=== PATIENT | male | born 1945 | race Caucasian/White ===

== ENCOUNTER 2023-07-16 11:58 | Observation (INO) | payer MEDICARE, SELFPAY ==
[2023-07-16] VITALS (90 sets, daily range): BP systolic 97–155; BP diastolic 48–94; PULSE 85–115; RESP 14–34; TEMP 36.4–36.8; O2SAT 90–100; BMI 19.4; BMI 19.9
--- NOTE | 2023-07-16 12:17 | US_ITS ---
The [address] [address] Patient Name: MAX SANCHEZ MRN: [id number] date: 1945 Sex: M Assigned Patient Location: ER Current Patient Location: ER Accession/Order Number: [id number] Exam Date: 07/16/2023 12:25 Report Date: 07/16/2023 13:13 At the request of: MO FREDERICK Procedure: US venous doppler LE LT US venous doppler LE LT CLINICAL HISTORY: DVT. COMPARISON: None Available. TECHNIQUE: Ultrasound doppler evaluation of the left lower extremity using compression, color doppler and augmentation maneuvers during spectral doppler analysis. FINDINGS: Common femoral vein: Patent. Deep femoral vein: Patent Femoral vein: Patent. Popliteal vein: Patent. Tibioperoneal veins: Patent. Greater saphenous vein: Patent. US/US venous doppler LE LT IMPRESSION: No left lower extremity deep venous thrombosis. Electronically authenticated by: HAYLEE BAUTISTA Date: 07/16/2023 13:13
--- NOTE | 2023-07-16 12:17 | CT_ITS ---
[address] [address] Patient Name: MAX SANCHEZ MRN: [id number] date: 1945 Sex: M Assigned Patient Location: ER Current Patient Location: ER Accession/Order Number: [id number] Exam Date: 07/16/2023 14:05 Report Date: 07/16/2023 15:16 At the request of: MO FREDERICK Procedure: CT abdomen pelvis w con CT abdomen pelvis w con CLINICAL HISTORY: Nausea and vomiting. Diarrhea. COMPARISON: 01/29/2023. TECHNIQUE: Axial CT from lung bases through symphysis pubis following the injection of 99 mL of Omnipaque 300 iodinated contrast material. 30 mL Gastrografin utilized for oral contrast. Coronal and sagittal reconstructions generated. Dose reduction techniques were achieved by using automated exposure control and/or adjustment of mA and/or kV according to patient size and/or use of iterative reconstruction technique. FINDINGS: CT ABDOMEN FINDINGS: Median sternotomy and coronary artery calcifications. Lung bases clear. Liver and unremarkable. Splenomegaly of 15 cm. Normal-sized adrenal glands. Cholecystectomy with normal common duct size. Pancreas unremarkable. Normal bilateral renal enhancement. A few nonobstructing calculi with no obstructing stones or hydronephrosis. 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 Limited in-stent evaluation of the visceral branches but grossly patent and patent distally. Occluded right iliofemoral stents with femorofemoral bypass and also occlusion at the bilateral upper SFAs. Stomach and much of the small and large bowel with diffuse wall thickening and congestion. No drainable ascites, pneumatosis or free air. Normal portal venous enhancement with no portal venous gas. No obstruction. CT PELVIS FINDINGS: Normal-sized prostate. Urinary bladder unremarkable. Lumbar spondylosis without acute bony process. Old chronic deformity left iliac bone. 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 CT/CT abdomen pelvis w con IMPRESSION: Diffuse gastroenteritis and enterocolitis changes throughout much of the GI tract. Given the patent visceral branch vessels and the diffuse long segment involvement is probably represents infectious or inflammatory bowel disease as opposed to vascular but correlate with lactic acid. There is no pneumatosis or free air. Chronic changes: Splenomegaly. No drainable ascites. Extensive vascular disease as detailed. Nonobstructing renal calculi. Electronically authenticated by: HAYLEE BAUTISTA Date: 07/16/2023 15:16
[2023-07-16 12:27] LABS: Immature Granulocytes Abs Auto 0.01 10^3/uL (0.00-0.03); Immature Granulocytes Pct Auto 0.4 % (0.0-0.5); Lymphocytes Absolute Auto 0.2 10^3/uL (1.2-3.8); Lymphocytes Percent Auto 8.5 % (20.5-60.0); Mean Corpuscular HGB Conc 27.2 g/dL (29.9-35.2); Mean Corpuscular Hemoglobin 21.1 pg (25.9-34.0); Mean Corpuscular Volume 77.5 fL (80.0-94.0); Monocytes Absolute Auto 0.2 10^3/uL (0.3-0.8); Monocytes Percent Auto 7.8 % (1.7-12.0); Neutrophils Absolute Auto 2.3 10^3/uL (1.4-6.5); Neutrophils Percent Auto 83.3 % (43.0-75.0); Platelet Count 76 10^3/uL (150-450); Red Blood Count 2.18 10^6/uL (4.70-6.10); Red Cell Distribution Width 17.7 % (11.0-15.0); White Blood Count 2.7 10^3/uL (4.0-11.0)
[2023-07-16] MEDS: ONDANSETRON PF 4 MG/2 ML VIAL IV ×3 (12:28→19:15)
[2023-07-16] MEDS: 0.9 % SODIUM CHLORIDE 1,000 ML 999 ML IV (12:28)
[2023-07-16 12:45] LABS: Alanine Aminotransferase 48 U/L (16-63); Albumin Globulin Ratio 0.8; Albumin Level 3.1 g/dL (3.4-5.0); Alkaline Phosphatase 70 U/L (46-116); Anion Gap 9.4; Aspartate Amino Transferase 24 U/L (15-37); BUN Creatinine Ratio 18.9; Bilirubin Total 0.4 mg/dL (0.2-1.0); Calcium 8.1 mg/dL (8.5-10.1); Chloride 102 mmol/L (98-107); Estimated GFR (African America >60 (>=60); Estimated GFR (Non-African Ame >60 (>=60); Glucose 139 mg/dL (74-106); Potassium 3.4 mmol/L (3.5-5.1); Sodium 135 mmol/L (136-145); Total Protein 7.1 g/dL (6.4-8.2)
[2023-07-16 12:50] LABS: Hematocrit 16.9 % (42.0-54.0); Hemoglobin 4.6 g/dL (14.0-18.0)
[2023-07-16] MEDS: METHYLPREDNISOLONE SOD SUCC PF 125 MG/2 ML VIAL IVP (12:54)
[2023-07-16] MEDS: DIPHENHYDRAMINE HCL 50 MG/ML (1ML) VIAL IV (12:54)
[2023-07-16] MEDS: METOCLOPRAMIDE HCL 10 MG/2 ML VIAL IVP ×2 (13:01→21:52)
--- NOTE | 2023-07-16 14:28 | ED.GENADUL1 ---
HPI - General Adult General Chief complaint: Nausea/Vomiting/Diarrhea Stated complaint: NAUSEA AND CONCERNED WITH BLOOD CLOT Time Seen by Provider: 07/16/23 12:06 Source: patient and family Mode of arrival: Wheelchair Limitations: physical limitation Limitations comment: missing R leg History of Present Illness HPI narrative: nausea and vomiting began last night. This morning he developed diarrhea. He has some lower abdominal cramping that began this morning. On questioning the patient admitted to having some dark stool today. No fever or chills. No flank pain or back pain. No skin rash. The patient has extensive vascular history with multiple surgeries in at [facility]. He had bilateral fem-pop bypass and then had to have grafting when they occluded. Related Data Home Medications Medication Instructions Recorded Confirmed apixaban 5 mg tablet (Eliquis) 5 mg PO Q12H 07/16/23 07/16/23 digoxin 125 mcg (0.125 mg) tablet 125 mcg PO DAILY 07/16/23 07/16/23 (Digox) ezetimibe 10 mg tablet 5 mg PO DAILY 07/16/23 07/16/23 metformin 500 mg tablet 500 mg PO BID 07/16/23 07/16/23 montelukast 10 mg tablet 10 mg PO DAILY 07/16/23 07/16/23 (Singulair) rosuvastatin 40 mg tablet 40 mg PO DAILY 07/16/23 07/16/23 vericiguat 10 mg tablet (Verquvo) 10 mg PO DAILY 07/16/23 07/16/23 Allergies Allergy/AdvReac Type Severity Reaction Status Date / Time iodine AdvReac Severe Vomiting Verified 07/16/23 12:11 promethazine [From Phenergan] AdvReac Severe Hallucinati Verified 07/16/23 12:11 ng shellfish derived AdvReac Severe Vomiting Verified 07/16/23 12:11 codeine AdvReac Intermediate Vomiting Verified 07/16/23 12:11 [facility] Medical History (Updated 07/16/23 @ 15:40 by Mo Frederick) 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 afebrile General: Well-appearing and in no apparent distress. Skin: Warm, dry, no pallor noted. No rash. Head: Normocephalic, atraumatic. Neck: Supple, non-tender. no meningismus Eye: Pupils are equal, round and EOMI. No scleral icterus. Ears, Nose, Mouth, and Throat: Oral mucosa is dry Cardiovascular: Regular Rate and Rhythm without murmur, gallop or rub. Respiratory: No accessory muscle use or respiratory distress. Lungs are clear to auscultation, no wheezing, rales or rhonchi Back: No CVA tenderness Musculoskeletal: normal ROM, no calf or popliteal tenderness, no lower extremity edema/swelling GI: Abdomen is soft, non-distended. Normal bowel sounds. No masses appreciated. Mid abdominal tenderness to palpation. No rebound, guarding, or rigidity noted. Neurological: A&O x4. No cranial nerve dysfunction observed. No truncal ataxia. Moves all extremities. Sensation intact. Psychiatric: Cooperative and interactive. Normal mood and affect. Constitutional Vital Signs, click to edit/add: Last Vital Signs Temp 98.0 F 07/16/23 14:56 Pulse 110 H 07/16/23 14:56 Resp 18 07/16/23 14:56 BP 140/64 07/16/23 14:56 Pulse Ox 98 07/16/23 14:56 O2 Del Method Room Air 07/16/23 12:06 Course Vital Signs Vital signs: Vital Signs Temperature 97.8 F 07/16/23 12:06 Pulse Rate 107 H 07/16/23 12:06 Respiratory Rate 18 07/16/23 12:06 Blood Pressure 155/86 H 07/16/23 12:06 Pulse Oximetry 100 07/16/23 12:06 Oxygen Delivery Method Room Air 07/16/23 12:06 Temperature 98.0 F 07/16/23 14:56 Pulse Rate 110 H 07/16/23 14:56 Respiratory Rate 18 07/16/23 14:56 Blood Pressure 140/64 07/16/23 14:56 Pulse Oximetry 98 07/16/23 14:56 Oxygen Delivery Method Room Air 07/16/23 12:06 Medical Decision Making MDM Narrative Medical decision making narrative: peripheral IV established and blood drawn and sent for testing. He was given normal saline IV fluid and IV Zofran. He continued to have nausea but is ALLERGIC to Phenergan so he was given additional IV Zofran and IV Reglan. Ultrasound left lower extremity does not reveal acute deep venous thrombosis. White blood cell count is decreased at 2.7 but his lactate is normal. He has marked anemia with a hemoglobin of 4.6.. MCV, MCH and MCHC are all low suggesting iron deficiency but the did tell me that the patient has been passing black tarry stool for the last several days so obviously gastrointestinal bleed is also concerning. CMP is essentially unremarkable with normal renal function and only minimally decreased sodium and potassium. CT scanning of the abdomen and pelvis ordered to be obtained of both oral and IV contrast. Both verbal and written consent was obtained for the patient receive blood transfusion. Two units of packed red blood cells ordered to be transfused. CT with oral and IVC revealed gastroenteritis without obstruction, mas, sign of GI bleed or sign of vascular extravasation of IV contrast. I informed the patient and family of results and they are agreeable to admission for continued transfusin of blood, treatment of nausea/vomiting and monitoring of Hb. Dr Williamson and I talked about the patient's case including his vascular history, lab results today and CT result and he agreed to admit the patient to the ICU, observation basis. He asked me to discuss the case with the [facility], Dr Aguilar. Call placed. Lab Data Lab results reviewed: Yes I reviewed the patient's lab results Labs: Lab Results 07/16/23 07/16/23 Range/Units 12:13 13:06 WBC 2.7 L (4.0-11.0) 10^3/uL RBC 2.18 L (4.70-6.10) 10^6/uL Hgb 4.6 L* (14.0-18.0) g/dL Hct 16.9 L* (42.0-54.0) % MCV 77.5 L (80.0-94.0) fL MCH 21.1 L (25.9-34.0) pg MCHC 27.2 L (29.9-35.2) g/dL RDW 17.7 H (11.0-15.0) % Plt Count 76 L (150-450) 10^3/uL Neut % (Auto) 83.3 H (43.0-75.0) % Lymph % (Auto) 8.5 L (20.5-60.0) % [place] % (Auto) 7.8 (1.7-12.0) % Eos % (Auto) 0.0 L (0.9-7.0) % Baso % (Auto) 0.0 L (0.2-2.0) % Neut # (Auto) 2.3 (1.4-6.5) 10^3/uL Lymph # (Auto) 0.2 L (1.2-3.8) 10^3/uL [place] # (Auto) 0.2 L (0.3-0.8) 10^3/uL Eos # (Auto) 0.0 (0.0-0.7) 10^3/uL Baso # (Auto) 0.0 (0.0-0.1) 10^3/uL Abs Immat Gran (auto) 0.01 (0.00-0.03) 10^3/uL Imm/Tot Granulo (auto) 0.4 (0.0-0.5) % Sodium 135 L (136-145) mmol/L Potassium 3.4 L (3.5-5.1) mmol/L Chloride 102 (98-107) mmol/L Carbon Dioxide 27.0 (21.0-32.0) mmol/L Anion Gap 9.4 BUN 14.0 (7.0-18.0) mg/dL Creatinine 0.74 (0.70-1.30) mg/dL Est GFR ( Amer) >60 (>=60) Est GFR (Non-Af Amer) >60 (>=60) BUN/Creatinine Ratio 18.9 Glucose 139 H (74-106) mg/dL Lactate 2.0 (0.4-2.0) mmol/L Calcium 8.1 L (8.5-10.1) mg/dL Total Bilirubin 0.4 (0.2-1.0) mg/dL AST 24 (15-37) U/L ALT 48 (16-63) U/L Alkaline Phosphatase 70 (46-116) U/L Total Protein 7.1 (6.4-8.2) g/dL Albumin 3.1 L (3.4-5.0) g/dL Globulin 4.0 g/dL Albumin/Globulin Ratio 0.8 Lipase 20.0 (16.0-77.0) U/L Blood Type O Positive Antibody Screen Negative Crossmatch See Detail Imaging Data US left LE: Radiologist's impression: Patient Name: MAX SANCHEZ MRN: [id number] date: 1945 Sex: M Assigned Patient Location: ER Current Patient Location: ER Accession/Order Number: [id number] Exam Date: 07/16/2023 12:25 Report Date: 07/16/2023 13:13 At the request of: MO FREDERICK Procedure: US venous doppler LE LT US venous doppler LE LT CLINICAL HISTORY: DVT. COMPARISON: None Available. TECHNIQUE: Ultrasound doppler evaluation of the left lower extremity using compression, color doppler and augmentation maneuvers during spectral doppler analysis. FINDINGS: Common femoral vein: Patent. Deep femoral vein: Patent Femoral vein: Patent. Popliteal vein: Patent. Tibioperoneal veins: Patent. Greater saphenous vein: Patent. IMPRESSION: No left lower extremity deep venous thrombosis. Electronically authenticated by: HAYLEE BAUTISTA Date: 07/16/2023 13:13 CT scan - abdomen: Radiologist's impression: Patient Name: MAX SANCHEZ MRN: [id number] date: 1945 Sex: M Assigned Patient Location: ER Current Patient Location: ER Accession/Order Number: [id number] Exam Date: 07/16/2023 14:05 Report Date: 07/16/2023 15:16 At the request of: MO FREDERICK Procedure: CT abdomen pelvis w con CT abdomen pelvis w con CLINICAL HISTORY: Nausea and vomiting. Diarrhea. COMPARISON: 01/29/2023. TECHNIQUE: Axial CT from lung bases through symphysis pubis following the injection of 99 mL of Omnipaque 300 iodinated contrast material. 30 mL Gastrografin utilized for oral contrast. Coronal and sagittal reconstructions generated. Dose reduction techniques were achieved by using automated exposure control and/or adjustment of mA and/or kV according to patient size and/or use of iterative reconstruction technique. FINDINGS: CT ABDOMEN FINDINGS: Median sternotomy and coronary artery calcifications. Lung bases clear. Liver and unremarkable. Splenomegaly of 15 cm. Normal-sized adrenal glands. Cholecystectomy with normal common duct size. Pancreas unremarkable. Normal bilateral renal enhancement. A few nonobstructing calculi with no obstructing stones or hydronephrosis. 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 Limited in-stent evaluation of the visceral branches but grossly patent and patent distally. Occluded right iliofemoral stents with femorofemoral bypass and also occlusion at the bilateral upper SFAs. Stomach and much of the small and large bowel with diffuse wall thickening and congestion. No drainable ascites, pneumatosis or free air. Normal portal venous enhancement with no portal venous gas. No obstruction. CT PELVIS FINDINGS: Normal-sized prostate. Urinary bladder unremarkable. Lumbar spondylosis without acute bony process. Old chronic deformity left iliac bone. 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 IMPRESSION: Diffuse gastroenteritis and enterocolitis changes throughout much of the GI tract. Given the patent visceral branch vessels and the diffuse long segment involvement is probably represents infectious or inflammatory bowel disease as opposed to vascular but correlate with lactic acid. There is no pneumatosis or free air. Chronic changes: Splenomegaly. No drainable ascites. Extensive vascular disease as detailed. Nonobstructing renal calculi. Electronically authenticated by: HAYLEE BAUTISTA Date: 07/16/2023 15:16 Discharge Plan Discharge Chief Complaint: Nausea/Vomiting/Diarrhea Clinical Impression: Anemia requiring transfusions, Gastroenteritis Patient Disposition: Admitted as Observation Time of Disposition Decision: 15:29 Additional Instructions: dr williamson, obs, ICU
[2023-07-16 15:52] LABS: Lactate/Lactic Acid 2.3 mmol/L (0.4-2.0)
[2023-07-16 17:42] LABS: Glucometer 164 mg/dL (74-106)
[2023-07-16 20:20] LABS: Hematocrit 24.3 % (42.0-54.0); Hemoglobin 7.3 g/dL (14.0-18.0); Mean Corpuscular Volume 79.9 fL (80.0-94.0); Platelet Count 76 10^3/uL (150-450); Red Blood Count 3.04 10^6/uL (4.70-6.10); Red Cell Distribution Width 18.6 % (11.0-15.0); White Blood Count 2.8 10^3/uL (4.0-11.0)
[2023-07-16 20:36] LABS: Lactate/Lactic Acid 1.6 mmol/L (0.4-2.0)
--- NOTE | 2023-07-16 20:47 | PC.NURSE ---
Patient's repeat Hgb 7.3 at 2009. RN ordered 2 additional units for transfusion per Dr. Bernardo's Miscellaneous standing order. Will cont to monitor and plan to administer when blood available from blood blank.
[2023-07-16] MEDS: LORAZEPAM 2 MG/ML 1 ML VIAL 0.5 MG IV (22:10)
--- NOTE | 2023-07-16 22:16 | PC.NURSE ---
Pt medicated with 0.5 mg Ativan per MD order as well as Thorazine IVPB. Pt tolerated well and is resting with eyes closed at this time. VSS. Will cont to monitor.
--- NOTE | 2023-07-16 23:50 | PC.NURSE ---
Unable to document blood transfusion vitals under TAR due to computer error. Error message reading that unit is locked by blood bank. 3rd unit verified by RN x2. This RN and Amanda Velez RN as co-signer. It is unclear at what point in the scanning and documentation process this error occurred. Pt continues to tolerate 3rd unit with no s/s of reaction. VSS. Will cont to monitor. Please see worklist for vital sign documentation.
[2023-07-17] VITALS (58 sets, daily range): BP systolic 118–141; BP diastolic 55–82; PULSE 52–107; RESP 16–25; TEMP 36.6–36.8; O2SAT 97–98
--- NOTE | 2023-07-17 02:19 | PC.NURSE ---
4th unit of PRBC's initiated at 0202 through the #20G IV catheter in patient's left wrist. Blood was double checked and verified by RN x2: This RN and Amanda Velez RN. No s/s of transfusion reaction noted. IV site remains patent, clean, dry, and intact. VSS. Pt remains Afebrile. PRBC's rate increased from initial rate of 100 ml/hr to 150 ml/hr. Pt tolerating well. Will cont to monitor.
--- NOTE | 2023-07-17 05:12 | PC.NURSE ---
4th unit of PRBC's transfused at 0445. Pt tolerated well. Pt up to BSC and back to bed. Pt states he's feeling better this AM. VSS. Lab will be up at 0530 to draw morning labs. Will cont to monitor.
[2023-07-17 06:01] LABS: Basophils Percent Auto 0.4 % (0.2-2.0); Hematocrit 26.8 % (42.0-54.0); Hemoglobin 8.2 g/dL (14.0-18.0); Immature Granulocytes Abs Auto 0.01 10^3/uL (0.00-0.03); Immature Granulocytes Pct Auto 0.4 % (0.0-0.5); Lymphocytes Absolute Auto 0.2 10^3/uL (1.2-3.8); Lymphocytes Percent Auto 10.3 % (20.5-60.0); Mean Corpuscular HGB Conc 30.6 g/dL (29.9-35.2); Mean Corpuscular Hemoglobin 25.1 pg (25.9-34.0); Monocytes Absolute Auto 0.3 10^3/uL (0.3-0.8); Monocytes Percent Auto 12.9 % (1.7-12.0); Neutrophils Absolute Auto 1.8 10^3/uL (1.4-6.5); Platelet Count 50 10^3/uL (150-450); Red Blood Count 3.27 10^6/uL (4.70-6.10); Red Cell Distribution Width 17.5 % (11.0-15.0); White Blood Count 2.3 10^3/uL (4.0-11.0)
[2023-07-17 06:07] LABS: Anion Gap 7.9; BUN Creatinine Ratio 18.8; Calcium 7.7 mg/dL (8.5-10.1); Carbon Dioxide 25.5 mmol/L (21.0-32.0); Chloride 107 mmol/L (98-107); Estimated GFR (African America >60 (>=60); Estimated GFR (Non-African Ame >60 (>=60); Glucose 97 mg/dL (74-106); Potassium 3.4 mmol/L (3.5-5.1); Sodium 137 mmol/L (136-145)
--- NOTE | 2023-07-17 08:12 | PM.GSCN ---
History of Present Illness Consult details Consult date: 07/17/23 Reason for consult: other Requesting physician: Jacob Bernardo Narrative: Tu Joy is a 77-year-old male who presented to the Emergency Department with abdominal pain nausea and vomiting and passage of dark tarry stools. He has a known history of peripheral vascular disease which is quite extensive. He takes eloquis daily due to atrial fibrillation and stroke. He also takes a baby aspirin daily which he has been on for many years. He denies any history of ulcer disease. He states that he has chronic anemia. Denies any history of chronic renal failure. He takes iron supplementation daily. He was found have a hemoglobin of 4.6 g yesterday in the Emergency Department and denies any hematemesis or hematochezia. His last colonoscopy was in [address] Jones and that was noted to be normal according to the patient. His last EGD was over ten years ago at the time of his gallbladder removal. Most recently he had a right [id number] amputation due to peripheral vascular disease after he had a femoropopliteal bypass as well as he looks like he has an axillary femoral bypass on the left. He states he's had five surgeries since the of the year due to his peripheral vascular disease. He is a smoker. He denies any abdominal pain this morning. He received three units of packed red blood cells for transfusion.his hemoglobin this morning was 8.2 g. Vital signs are stable. Review of Systems ROS Status of ROS 10 or more systems reviewed and unremarkable except as noted in history and below [facility] Medical History (Updated 07/17/23 @ 08:18 by Chong Aguilar MD) Amputation above knee ?S78.119A - Complete traumatic amputation at level between unspecified hip and knee, initial encounter (ICD-10) Clot ?I82.90 - Acute embolism and thrombosis of unspecified vein (ICD-10) Complaint of melena ?K92.1 - Melena (ICD-10) Diabetes ?E11.9 - Type 2 diabetes mellitus without complications (ICD-10) Femoral-popliteal bypass graft occlusion, left ?T82.898A - Other specified complication of vascular prosthetic devices, implants and grafts, initial encounter (ICD-10) Femoral-popliteal bypass graft occlusion, right ?T82.898A - Other specified complication of vascular prosthetic devices, implants and grafts, initial encounter (ICD-10) FH: CABG (coronary artery bypass surgery) ?Z82.49 - Family history of ischemic heart disease and other diseases of the circulatory system (ICD-10) Family History Father Family history of diabetes mellitus Social History Within the past year, how often did you have a drink containing alcohol: never Score interpretation: A score less than 4 is consistent with normal alcohol consumption. 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 Known occupational exposures/hazards: No Highest level of school completed/degree received: high school graduate Meds Home Medications and Allergies Home Medications Medication Instructions Recorded Confirmed Type apixaban 5 mg tablet (Eliquis) 5 mg PO Q12H 07/16/23 07/16/23 History digoxin 125 mcg (0.125 mg) tablet 125 mcg PO DAILY 07/16/23 07/16/23 History (Digox) ezetimibe 10 mg tablet 5 mg PO DAILY 07/16/23 07/16/23 History metformin 500 mg tablet 500 mg PO BID 07/16/23 07/16/23 History montelukast 10 mg tablet 10 mg PO DAILY 07/16/23 07/16/23 History (Singulair) rosuvastatin 40 mg tablet 40 mg PO DAILY 07/16/23 07/16/23 History vericiguat 10 mg tablet (Verquvo) 10 mg PO DAILY 07/16/23 07/16/23 History Allergies Allergy/AdvReac Type Severity Reaction Status Date / Time iodine AdvReac Severe Vomiting Verified 07/16/23 12:11 promethazine [From Phenergan] AdvReac Severe Hallucinati Verified 07/16/23 12:11 ng shellfish derived AdvReac Severe Vomiting Verified 07/16/23 12:11 codeine AdvReac Intermediate Vomiting Verified 07/16/23 12:11 Exam Constitutional Vital Signs, click to edit/add: Last Vital Signs Temp 98.3 F 07/17/23 07:27 Pulse 62 07/17/23 07:50 Resp 20 07/17/23 07:50 BP 128/55 07/17/23 07:27 Pulse Ox 97 07/17/23 02:40 O2 Del Method Room Air 07/16/23 23:08 Documenting provider has reviewed patient's vital signs: yes Common normals: no apparent distress and oriented x3 General appearance: cooperative, comfortable, frail appearing and appears older than stated age Nutritional appearance: thin and underweight Orientation/consciousness: Yes awake, Yes oriented to person, Yes oriented to place and Yes oriented to time GI Common normals: Normal to inspection, nondistended, normoactive bowel sounds present, soft to palpation, non-tender, no hepatosplenomegaly and no masses (has a vascular graft extending from his left axilla to his left groin which) Inspection: normal to inspection Neuro Common normals: oriented x3 Results Labs Labs: Abnormal lab results 07/16/23 07/16/23 07/16/23 Range/Units 12:13 13:06 15:21 WBC 2.7 L (4.0-11.0) 10^3/uL RBC 2.18 L (4.70-6.10) 10^6/uL Hgb 4.6 L* (14.0-18.0) g/dL Hct 16.9 L* (42.0-54.0) % MCV 77.5 L (80.0-94.0) fL MCH 21.1 L (25.9-34.0) pg MCHC 27.2 L (29.9-35.2) g/dL RDW 17.7 H (11.0-15.0) % Plt Count 76 L (150-450) 10^3/uL MPV (9.5-13.5) fL Neut % (Auto) 83.3 H (43.0-75.0) % Lymph % (Auto) 8.5 L (20.5-60.0) % Larue % (Auto) (1.7-12.0) % Eos % (Auto) 0.0 L (0.9-7.0) % Baso % (Auto) 0.0 L (0.2-2.0) % Lymph # (Auto) 0.2 L (1.2-3.8) 10^3/uL Larue # (Auto) 0.2 L (0.3-0.8) 10^3/uL Sodium 135 L (136-145) mmol/L Potassium 3.4 L (3.5-5.1) mmol/L Creatinine (0.70-1.30) mg/dL Glucose 139 H (74-106) mg/dL Lactate 2.3 H* (0.4-2.0) mmol/L Calcium 8.1 L (8.5-10.1) mg/dL Albumin 3.1 L (3.4-5.0) g/dL POC Glucose (74-106) mg/dL Crossmatch See Detail 07/16/23 07/16/23 07/17/23 Range/Units 17:40 20:10 05:47 WBC 2.8 L 2.3 L (4.0-11.0) 10^3/uL RBC 3.04 L 3.27 L (4.70-6.10) 10^6/uL Hgb 7.3 L 8.2 L (14.0-18.0) g/dL Hct 24.3 L 26.8 L (42.0-54.0) % MCV 79.9 L (80.0-94.0) fL MCH 24.0 L 25.1 L (25.9-34.0) pg MCHC (29.9-35.2) g/dL RDW 18.6 H 17.5 H (11.0-15.0) % Plt Count 76 L 50 L (150-450) 10^3/uL MPV 0.0 L 0.0 L (9.5-13.5) fL Neut % (Auto) 76.0 H (43.0-75.0) % Lymph % (Auto) 10.3 L (20.5-60.0) % Larue % (Auto) 12.9 H (1.7-12.0) % Eos % (Auto) 0.0 L (0.9-7.0) % Baso % (Auto) (0.2-2.0) % Lymph # (Auto) 0.2 L (1.2-3.8) 10^3/uL Larue # (Auto) (0.3-0.8) 10^3/uL Sodium (136-145) mmol/L Potassium 3.4 L (3.5-5.1) mmol/L Creatinine 0.64 L (0.70-1.30) mg/dL Glucose (74-106) mg/dL Lactate (0.4-2.0) mmol/L Calcium 7.7 L (8.5-10.1) mg/dL Albumin (3.4-5.0) g/dL POC Glucose 164 H (74-106) mg/dL Crossmatch Diabetes panel 07/16/23 07/17/23 Range/Units 12:13 05:47 Sodium 135 L 137 (136-145) mmol/L Potassium 3.4 L 3.4 L (3.5-5.1) mmol/L Chloride 102 107 (98-107) mmol/L Carbon Dioxide 27.0 25.5 (21.0-32.0) mmol/L BUN 14.0 12.0 (7.0-18.0) mg/dL Creatinine 0.74 0.64 L (0.70-1.30) mg/dL Glucose 139 H 97 (74-106) mg/dL Calcium 8.1 L 7.7 L (8.5-10.1) mg/dL AST 24 (15-37) U/L ALT 48 (16-63) U/L Alkaline Phosphatase 70 (46-116) U/L Total Protein 7.1 (6.4-8.2) g/dL Albumin 3.1 L (3.4-5.0) g/dL Calcium panel 07/16/23 07/17/23 Range/Units 12:13 05:47 Calcium 8.1 L 7.7 L (8.5-10.1) mg/dL Albumin 3.1 L (3.4-5.0) g/dL Pituitary panel 07/16/23 07/17/23 Range/Units 12:13 05:47 Sodium 135 L 137 (136-145) mmol/L Potassium 3.4 L 3.4 L (3.5-5.1) mmol/L Chloride 102 107 (98-107) mmol/L Carbon Dioxide 27.0 25.5 (21.0-32.0) mmol/L BUN 14.0 12.0 (7.0-18.0) mg/dL Creatinine 0.74 0.64 L (0.70-1.30) mg/dL Glucose 139 H 97 (74-106) mg/dL Calcium 8.1 L 7.7 L (8.5-10.1) mg/dL Adrenal panel 07/16/23 07/17/23 Range/Units 12:13 05:47 Sodium 135 L 137 (136-145) mmol/L Potassium 3.4 L 3.4 L (3.5-5.1) mmol/L Chloride 102 107 (98-107) mmol/L Carbon Dioxide 27.0 25.5 (21.0-32.0) mmol/L BUN 14.0 12.0 (7.0-18.0) mg/dL Creatinine 0.74 0.64 L (0.70-1.30) mg/dL Glucose 139 H 97 (74-106) mg/dL Calcium 8.1 L 7.7 L (8.5-10.1) mg/dL Total Bilirubin 0.4 (0.2-1.0) mg/dL AST 24 (15-37) U/L ALT 48 (16-63) U/L Alkaline Phosphatase 70 (46-116) U/L Total Protein 7.1 (6.4-8.2) g/dL Albumin 3.1 L (3.4-5.0) g/dL All other labs normal. Imaging CT scan - chest: report reviewed Assessment and Plan Assessment and Plan (1) Anemia requiring transfusions: (2) Complaint of melena: Plan agree with appropriate blood transfusions and have offered patient upper endoscopy to be performed tomorrow afternoon if patient still inpatient. If not he will follow-up with me in the office as an outpatient or see a application support developer at a later date for an EGD. Recommendation would be to decrease any baby aspirin and place him on proton pump inhibitor twice a day and possibly Carafate. Without an EGD cannot tell if he has an ulcer or not which is causing his melanoma port could be caused from his iron supplementation. Please let me know if you desire to have an EGD done tomorrow afternoon.
[2023-07-17] MEDS: EZETIMIBE 10 MG TABLET 5 MG PO (08:23)
[2023-07-17] MEDS: MONTELUKAST SODIUM 10 MG TABLET PO (08:23)
[2023-07-17] MEDS: OMEPRAZOLE 40 MG CAPSULE.DR PO (08:24)
[2023-07-17] MEDS: METFORMIN HCL 500 MG TABLET PO (08:24)
[2023-07-17] MEDS: DIGOXIN 125 MCG TABLET PO (08:24)
[2023-07-17] MEDS: METOCLOPRAMIDE HCL 10 MG/2 ML VIAL IVP (08:26)
[2023-07-17] MEDS: VERICIGUAT 2.5 MG 10 EACH PO (08:26)
--- NOTE | 2023-07-17 13:31 | P.HP_ITS ---
H&P: HPI History of Present Illness Chief complaint: Nausea, vomiting, and diarrhea Narrative: 77 y/o male to ER with nausea, vomiting, and diarrhea. Day prior developed nausea and emesis. Developed diarrhea and diffuse abdominal cramping. Severe weakness. Reports dark stool. History of PVD and prior stents and fem/pop bypass. On aspirin daily. History of afib after CABG in 1998 and on anticoagulation since. Currently on Eliquis. Reports history of anemia and prior hematology work up negative including bone marrow biopsy. To ER and hgb 4.6. CT showed gastroenteritis and US left LE negative for DVT. Admitted for treatment. Started omeprazole BID and held anticoagulation. Given 2 units PRBC and hgb improved to 7.3. Given additional 2 units and 8.2 this am. Feels well today. No further nausea or emesis. No diarrhea. Eating well and stength improved. Evaluated by general surgery and recommends EGD. Review of Systems ROS Constitutional Denies: fever, chills or night sweats Cardiovascular Denies: chest pain, palpitations or edema Respiratory Denies: shortness of breath, cough or wheezing Gastrointestinal Reports: abdominal pain, nausea, vomiting and diarrhea Genitourinary Denies: painful urination PFSH [facility] Medical History (Updated 07/17/23 @ 09:10 by Jacob Bernardo MD) Amputation above knee ?S78.119A - Complete traumatic amputation at level between unspecified hip and knee, initial encounter (ICD-10) Clot ?I82.90 - Acute embolism and thrombosis of unspecified vein (ICD-10) Complaint of melena ?K92.1 - Melena (ICD-10) Femoral-popliteal bypass graft occlusion, left ?T82.898A - Other specified complication of vascular prosthetic devices, implants and grafts, initial encounter (ICD-10) Femoral-popliteal bypass graft occlusion, right ?T82.898A - Other specified complication of vascular prosthetic devices, implants and grafts, initial encounter (ICD-10) FH: CABG (coronary artery bypass surgery) ?Z82.49 - Family history of ischemic heart disease and other diseases of the circulatory system (ICD-10) Family History Father Family history of diabetes mellitus Social History Within the past year, how often did you have a drink containing alcohol: never Score interpretation: A score less than 4 is consistent with normal alcohol consumption. 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 Known occupational exposures/hazards: No Highest level of school completed/degree received: high school graduate Meds Home Medications and Allergies Home Medications Medication Instructions Recorded Confirmed Type digoxin 125 mcg (0.125 mg) tablet 125 mcg PO DAILY 07/16/23 07/16/23 History (Digox) ezetimibe 10 mg tablet 5 mg PO DAILY 07/16/23 07/16/23 History metformin 500 mg tablet 500 mg PO BID 07/16/23 07/16/23 History montelukast 10 mg tablet 10 mg PO DAILY 07/16/23 07/16/23 History (Singulair) rosuvastatin 40 mg tablet 40 mg PO DAILY 07/16/23 07/16/23 History vericiguat 10 mg tablet (Verquvo) 10 mg PO DAILY 07/16/23 07/16/23 History omeprazole 40 mg capsule,delayed 40 mg PO BID #60 caps 07/17/23 Rx release Allergies Allergy/AdvReac Type Severity Reaction Status Date / Time iodine AdvReac Severe Vomiting Verified 07/16/23 12:11 promethazine [From Phenergan] AdvReac Severe Hallucinati Verified 07/16/23 12:11 ng shellfish derived AdvReac Severe Vomiting Verified 07/16/23 12:11 codeine AdvReac Intermediate Vomiting Verified 07/16/23 12:11 Exam Constitutional Vital Signs, click to edit/add: Last Vital Signs Temp 98.3 F 07/17/23 12:00 Pulse 107 H 07/17/23 12:00 Resp 20 07/17/23 12:00 BP 141/82 07/17/23 12:00 Pulse Ox 97 07/17/23 12:00 O2 Del Method Room Air 07/17/23 12:00 Documenting provider has reviewed patient's vital signs: yes Common normals: no apparent distress, oriented x3 and alert HENMT Common normals: normocephalic Eye Common normals: PERRL and EOMs intact bilaterally Respiratory Common normals: normal respiratory effort and clear to auscultation bilaterally Cardio Common normals: regular rate, regular rhythm, no gallops, no murmurs and no rub GI Common normals: Normal to inspection, nondistended, normoactive bowel sounds present and non-tender Extremity Common normals: no pedal edema Results Labs Labs: Short CBC 07/16/23 07/17/23 Range/Units 20:10 05:47 WBC 2.8 L 2.3 L (4.0-11.0) 10^3/uL Hgb 7.3 L 8.2 L (14.0-18.0) g/dL Hct 24.3 L 26.8 L (42.0-54.0) % Plt Count 76 L 50 L (150-450) 10^3/uL BMP 07/17/23 05:47 Sodium 137 Potassium 3.4 L Chloride 107 Carbon Dioxide 25.5 BUN 12.0 Creatinine 0.64 L Glucose 97 Calcium 7.[address] scan - abdomen: Attestation: I have reviewed the pertinent imaging results. Assessment and Plan Assessment and Plan (1) Anemia requiring transfusions: (2) Gastroenteritis: (3) Peripheral artery disease: (4) CAD (coronary artery disease): (5) Diabetes: (6) Benign essential hypertension: (7) Paroxysmal atrial fibrillation: (8) COPD (chronic obstructive pulmonary disease): Plan Hgb up to 8.2 and symptoms resolved. Unclear etiology of anemia and prior work up including bone marrow biopsy. Discharge home. Possible gastritis or GI irritation and stop Eliquis. Continue omeprazole BID and f/u with general surgery for outpatient EGD. Episode of afib over 20 years ago and denies problems since. May benefit from Watchman device but can work up further as outpatient. Resume aspirin for PVD. Resume other medication as directed. F/u with PCP in 1-2 weeks.
--- NOTE | 2023-07-18 13:50 | CM.DCFOLLOWU ---
Person spoke with: Tu How are you feeling? Better- still having nausea off and on How is your pain? No pain Did you understand your discharge instructions? Yes Do you have any questions about your discharge instructions? No Were you given any prescriptions at discharge? Yes Were you able to get your prescriptions filled? Yes Do you understand how to take your medications as ordered? Yes Do you have any questions about your follow up appointment and do you plan to keep your follow up appointment? I have to call back tomorrow to schedule appt Is there anything else that you would like to discuss? No Questions/Comments/Concerns/Other:
== END 2023-07-17 13:07 | disposition home or self-care (01) ==
LOC: ER 15:31 → ICU 16:13
PROVIDERS: Admitting Provider Family Medicine; Emergency Provider Emergency Medicine; PCP Internal Medicine; Visit Provider Family Medicine
DX: D64.9 Anemia, unspecified (principal); K52.9 Noninfective gastroenteritis and colitis, unspecified; I73.9 Peripheral vascular disease, unspecified; I25.10 Atherosclerotic heart disease of native coronary artery without angina pectoris; E11.9 Type 2 diabetes mellitus without complications; I10 Essential (primary) hypertension; I48.0 Paroxysmal atrial fibrillation; J44.9 Chronic obstructive pulmonary disease, unspecified; K92.1 Melena; Z86.718 Personal history of other venous thrombosis and embolism; Z79.82 Long term (current) use of aspirin; Z79.01 Long term (current) use of anticoagulants; Z95.1 Presence of aortocoronary bypass graft; Z79.84 Long term (current) use of oral hypoglycemic drugs; Z86.73 Personal history of transient ischemic attack (TIA), and cerebral infarction without residual deficits; Z90.49 Acquired absence of other specified parts of digestive tract; Z89.611 Acquired absence of right leg above knee; Z87.891 Personal history of nicotine dependence
CPT/HCPCS: 36415; 36430; 74177; 80048; 80053; 83605; 83690; 85025; 85027; 86850; 86900; 86901; 93971; 96361; 96365; 96375; 96376; 99285; G0378; J2930; P9016; Q3014; Q9963; Q9967

== ENCOUNTER 2023-09-17 23:37 | Emergency (ER) | payer MEDICARE, SELFPAY ==
[2023-09-17 23:59] VITALS: BP 102/64; PULSE 129; RESP 20; TEMP 36.8; O2SAT 98; BMI 22.9
[2023-09-18] VITALS (78 sets, daily range): BP systolic 93–150; BP diastolic 48–81; PULSE 88; RESP 18; TEMP 36.6; O2SAT 85–100
--- NOTE | 2023-09-18 00:46 | ED_ITS ---
HPI - General Adult General Chief complaint: Abdominal Pain Stated complaint: buldging abd Time Seen by Provider: 09/18/23 00:22 Source: patient Mode of arrival: Wheelchair History of Present Illness HPI narrative: past history of severe peripheral artery disease. Describes bilat bifem bypass earlier this year. 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 describes vascular mesh of some type used on his left side. He has history of anemia and occ episodes of nausea that is chronic. Patient noticed bulging of the left groin area 3 days ago. It has increased in size and is now painful. No fever or chills. No associated abdominal pain Onset (ago): day(s) Related Data Home Medications Medication Instructions Recorded Confirmed digoxin 125 mcg (0.125 mg) tablet 125 mcg PO DAILY 07/16/23 07/16/23 (Digox) ezetimibe 10 mg tablet 5 mg PO DAILY 07/16/23 07/16/23 metformin 500 mg tablet 500 mg PO BID 07/16/23 07/16/23 montelukast 10 mg tablet 10 mg PO DAILY 07/16/23 07/16/23 (Singulair) rosuvastatin 40 mg tablet 40 mg PO DAILY 07/16/23 07/16/23 vericiguat 10 mg tablet (Verquvo) 10 mg PO DAILY 07/16/23 07/16/23 Previous Rx's Medication Instructions Recorded omeprazole 40 mg capsule,delayed 40 mg PO BID #60 caps 07/17/23 release Allergies Allergy/AdvReac Type Severity Reaction Status Date / Time iodine AdvReac Severe Vomiting Verified 09/18/23 00:04 promethazine [From Phenergan] AdvReac Severe Hallucinati Verified 09/18/23 00:04 ng shellfish derived AdvReac Severe Vomiting Verified 09/18/23 00:04 codeine AdvReac Intermediate Vomiting Verified 09/18/23 00:04 Review of Systems 2 ROS0 Status of ROS 10 or more systems reviewed and unremark able except as noted in history and below [facility] Medical History (Updated 09/18/23 @ 06:31 by Luis Owen MD) Paroxysmal atrial fibrillation ?I48.0 - Paroxysmal atrial fibrillation (ICD-10) CAD (coronary artery disease) ?I25.10 - Atherosclerotic heart disease of [place] coronary artery without angina pectoris (ICD-10) Benign essential hypertension ?I10 - Essential (primary) hypertension (ICD-10) COPD (chronic obstructive pulmonary disease) ?J44.9 - Chronic obstructive pulmonary disease, unspecified (ICD-10) Peripheral artery disease ?I73.9 - Peripheral vascular disease, unspecified (ICD-10) Complaint of melena ?K92.1 - Melena (ICD-10) FH: CABG (coronary artery bypass surgery) ?Z82.49 - Family history of ischemic heart disease and other diseases of the circulatory system (ICD-10) Diabetes ?E11.9 - Type 2 diabetes mellitus without complications (ICD-10) Femoral-popliteal bypass graft occlusion, right ?T82.898A - Other specified complication of vascular prosthetic devices, implants and grafts, initial encounter (ICD-10) Femoral-popliteal bypass graft occlusion, left ?T82.898A - Other specified complication of vascular prosthetic devices, implants and grafts, initial encounter (ICD-10) Anemia requiring transfusions ?D64.9 - Anemia, unspecified (ICD-10) Clot ?I82.90 - Acute embolism and thrombosis of unspecified vein (ICD-10) Amputation above knee ?S78.119A - Complete traumatic amputation at level between unspecified hip and knee, initial encounter (ICD-10) Family History Father Family history of diabetes mellitus Social History Within the past year, how often did you have a drink containing alcohol: never Score interpretation: A score less than 4 is consistent with normal alcohol consumption. 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 Known occupational exposures/hazards: No Highest level of school completed/degree received: high school graduate Exam Constitutional Vital Signs, click to edit/add: Last Vital Signs Temp 98.3 F 09/17/23 23:59 Pulse 129 H 09/17/23 23:59 Resp 20 09/17/23 23:59 BP 116/69 09/18/23 05:00 Pulse Ox 97 09/18/23 05:00 O2 Del Method Room Air 09/17/23 23:59 Common normals: no apparent distress, average body habitus (small frame male), oriented x3 and alert HENMT Common normals: normocephalic and head/scalp atraumatic Eye Common normals: EOMs intact bilaterally and conjunctivae normal Respiratory Common normals: normal respiratory effort and no retractions Cardio Common normals: regular rate, regular rhythm, S1 normal heart sound and S2 normal heart sound GI Palpation: soft GI image (male): 2 1. bulging mass that is warm, faintly erythematous and tender. not pulsatile Extremity Extremity image (front): 2 1. left AKA Neuro Common normals: oriented x3, CN's II-XII intact bilaterally and moves all extremities Psych Appearance: grossly normal Course Vital Signs Vital signs: Vital Signs Temperature 98.3 F 09/17/23 23:59 Pulse Rate 129 H 09/17/23 23:59 Respiratory Rate 20 09/17/23 23:59 Blood Pressure 102/64 09/17/23 23:59 Pulse Oximetry 98 09/17/23 23:59 Oxygen Delivery Method Room Air 09/17/23 23:59 Temperature 98.3 F 09/17/23 23:59 Pulse Rate 129 H 09/17/23 23:59 Respiratory Rate 20 09/17/23 23:59 Blood Pressure 116/69 09/18/23 05:00 Pulse Oximetry 97 09/18/23 05:00 Oxygen Delivery Method Room Air 09/17/23 23:59 Medical Decision Making MDM Narrative Medical decision making narrative: patient has a history of severe artery disease. Multiple stents have been placed by vascular surgery including fem-fem bypass, right common and left common iliac artery stents, celiac and superior mesenteric artery stents as well as stent coursing from the anterior left chest wall to the left femoral region. None of the stents are opacified with contrast. His right leg is amputated at the proximal femur. He now presents with an enlarging mass that is painful at the right groin. It is not pulsatile but is warm and faintly erythematous. CT identifies this mass as a large rim enhancing fluid collection measuring up to 7.5 x4.8x 13.1cm with likely internal blood products of varying ages and a few foci of air concerning for an infected hematoma. His Hgb was 9.2 on admission and 5 hours later it is 7.8. Discussed with hospitalist at [facility] who has accepted the patient but would also like the case discussed with his vascular surgeon who has been paged . Patient given Vanco and zosyn. His vital signs remain stable. [facility] is working on finding a bed for this patient care transferred to Dr Dickson at change of shift Lab Data Labs: Lab Results 09/18/23 09/18/23 Range/Units 00:52 05:26 WBC 5.5 (4.0-11.0) 10^3/uL RBC 3.47 L (4.70-6.10) 10^6/uL Hgb 9.2 L 7.8 L (14.0-18.0) g/dL Hct 30.0 L (42.0-54.0) % MCV 86.5 (80.0-94.0) fL MCH 26.5 (25.9-34.0) pg MCHC 30.7 (29.9-35.2) g/dL RDW 18.7 H (11.0-15.0) % Plt Count 161 (150-450) 10^3/uL MPV 10.4 (9.5-13.5) fL Neut % (Auto) 94.3 H (43.0-75.0) % Lymph % (Auto) 4.0 L (20.5-60.0) % [place] % (Auto) 0.5 L (1.7-12.0) % Eos % (Auto) 0.4 L (0.9-7.0) % Baso % (Auto) 0.4 (0.2-2.0) % Neut # (Auto) 5.2 (1.4-6.5) 10^3/uL Lymph # (Auto) 0.2 L (1.2-3.8) 10^3/uL [place] # (Auto) 0.0 L (0.3-0.8) 10^3/uL Eos # (Auto) 0.0 (0.0-0.7) 10^3/uL Baso # (Auto) 0.0 (0.0-0.1) 10^3/uL Abs Immat Gran (auto) 0.02 (0.00-0.03) 10^3/uL Imm/Tot Granulo (auto) 0.4 (0.0-0.5) % Sodium 131 L (136-145) mmol/L Potassium 4.0 (3.5-5.1) mmol/L Chloride 97 L (98-107) mmol/L Carbon Dioxide 28.6 (21.0-32.0) mmol/L Anion Gap 9.4 BUN 23.0 H (7.0-18.0) mg/dL Creatinine 0.79 (0.70-1.30) mg/dL Est GFR ( Amer) >60 (>=60) Est GFR (Non-Af Amer) >60 (>=60) BUN/Creatinine Ratio 29.1 Glucose 100 (74-106) mg/dL Lactate 1.7 (0.4-2.0) mmol/L Calcium 8.8 (8.5-10.1) mg/dL Imaging Data CT scan - abdomen: Radiologist's impression: Patient Name: MAX SANCHEZ MRN: [facility]:[id number] date: 1945 Sex: M Assigned Patient Location: ER Current Patient Location: ER Accession/Order Number: [id number] Exam Date: 09/18/2023 02:05 Report Date: 09/18/2023 02:52 At the request of: LUIS OWEN Procedure: CT abdomen pelvis w con EXAM: CT abdomen pelvis w con HISTORY: left groin mass COMPARISON: CT abdomen and pelvis examination dated 07/16/2023. TECHNIQUE: Axial CT images through the abdomen and pelvis were obtained after the intravenous administration of 100 mL Omnipaque 300 contrast. Coronal and sagittal reformats were obtained. Dose reduction techniques were achieved by using automated exposure control and/or adjustment of mA and/or kV according to patient size and/or use of iterative reconstruction technique. FINDINGS: The visualized portions of the lung bases are clear. Partially imaged are postsurgical changes of the chest with median sternotomy wires. Abdomen: The liver and spleen enhance homogeneously without focal lesion. There is no intra or extrahepatic biliary duct dilatation. The gallbladder is surgically absent. Postsurgical changes are seen near the gastroesophageal junction. The spleen is enlarged measuring up to 15.4 cm. Suspected vascular calcifications are seen within the renal pelves. Otherwise, the pancreas, adrenal glands, kidneys, and bowel loops are unremarkable. The appendix is not seen. There is no mesenteric or retroperitoneal lymphadenopathy. A bypass graft coursing from the anterior left chest to the left femoral region is not opacified with contrast. There are postsurgical changes in the bilateral inguinal regions. There is a suspected right common femoral pseudoaneurysm measuring up to 1.7 x 1.6 cm, unchanged compared to the prior examination when measured in a similar fashion (series 3, image 123). There is also a suspected left common femoral artery pseudoaneurysm measuring up to 1.1 x 1.5 cm, previously 1.6 x 1.7 cm (series 3, image 119). There is a large rim-enhancing fluid collection in the left inguinal region measuring up to 7.5 x 4.8 x 13.1 cm with likely internal blood products of varying ages (series 3, image 108 and series 6, image 31). A few foci of air are seen within this fluid collection. There are surrounding inflammatory changes. Pelvis: The bladder and rectum are unremarkable. There is no iliac or inguinal lymphadenopathy. There is advanced atherosclerotic disease. A stent is seen within the right common iliac artery extending through the distal right external iliac artery. This is not opacified with contrast. An additional stent is seen extending from the proximal left common iliac artery through the distal left external iliac artery. The majority of this stent is not opacified with contrast. A femoral-femoral bypass graft is nonopacified with contrast. A stent is seen within the proximal celiac and superior mesenteric arteries. Bone windows show no aggressive osseous lesions. There is remote posttraumatic deformity of the left iliac bone. CT/CT abdomen pelvis w con IMPRESSION: 1. Large fluid collection in the left inguinal region with peripheral rim enhancement, likely internal blood products of varying ages, some possibly acute, and a few foci of air. These findings are concerning for an infected hematoma. 2. Status post cholecystectomy and possible appendectomy as the spleen is not seen. 3. Splenomegaly. 4. A bypass graft coursing from the anterior left chest to the left femoral region, a femoral-femoral bypass graft, and a stent within the right common iliac and right external iliac arteries are not opacified by contrast. The majority of a stent within the left common iliac and left external iliac arteries is also not opacified with contrast. 5. 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 Finding #[address] Owen by Dr. Camilo at 2:50 AM ET on 09/18/2023. Electronically authenticated by: Marialuisa CAMILO Date: 09/18/2023 02:52 Dictated By: Dusty Camilo M.D. Signed By: 09/18/23254 DD/ 1 TD/TT: Public Works Manager: Discharge Plan Discharge Chief Complaint: Abdominal Pain Clinical Impression: Infected hematoma Patient Disposition: Still a Patient Prescriptions / Home Meds: No Action rosuvastatin 40 mg tablet 40 mg PO DAILY ezetimibe 10 mg tablet 5 mg PO DAILY montelukast [Singulair] 10 mg tablet 10 mg PO DAILY metformin 500 mg tablet 500 mg PO BID digoxin [Digox] 125 mcg (0.125 mg) tablet 125 mcg PO DAILY Verquvo 10 mg tablet 10 mg PO DAILY Rx Instructions: must administer with a meal/food omeprazole 40 mg Capsule,Delayed Release(Dr/Ec) 40 mg PO BID Qty: 60 0RF Referrals: LUCILLE HORTA MD [Primary Care Provider] - 1 week
[2023-09-18] MEDS: 0.9 % SODIUM CHLORIDE 1,000 ML 999 ML IV (01:09)
[2023-09-18] MEDS: METHYLPREDNISOLONE SOD SUCC PF 125 MG/2 ML VIAL IVP (01:09)
[2023-09-18] MEDS: DIPHENHYDRAMINE HCL 50 MG/ML (1ML) VIAL 75 MG IV (01:09)
[2023-09-18 01:12] LABS: Basophils Percent Auto 0.4 % (0.2-2.0); Eosinophils Percent Auto 0.4 % (0.9-7.0); Hemoglobin 9.2 g/dL (14.0-18.0); Immature Granulocytes Abs Auto 0.02 10^3/uL (0.00-0.03); Immature Granulocytes Pct Auto 0.4 % (0.0-0.5); Lymphocytes Absolute Auto 0.2 10^3/uL (1.2-3.8); Mean Corpuscular HGB Conc 30.7 g/dL (29.9-35.2); Mean Corpuscular Hemoglobin 26.5 pg (25.9-34.0); Mean Corpuscular Volume 86.5 fL (80.0-94.0); Mean Platelet Volume 10.4 fL (9.5-13.5); Monocytes Percent Auto 0.5 % (1.7-12.0); Neutrophils Absolute Auto 5.2 10^3/uL (1.4-6.5); Neutrophils Percent Auto 94.3 % (43.0-75.0); Platelet Count 161 10^3/uL (150-450); Red Blood Count 3.47 10^6/uL (4.70-6.10); Red Cell Distribution Width 18.7 % (11.0-15.0); White Blood Count 5.5 10^3/uL (4.0-11.0)
[2023-09-18 01:21] LABS: Anion Gap 9.4; BUN Creatinine Ratio 29.1; Calcium 8.8 mg/dL (8.5-10.1); Carbon Dioxide 28.6 mmol/L (21.0-32.0); Chloride 97 mmol/L (98-107); Estimated GFR (African America >60 (>=60); Estimated GFR (Non-African Ame >60 (>=60); Glucose 100 mg/dL (74-106); Sodium 131 mmol/L (136-145)
--- NOTE | 2023-09-18 01:21 | CT_ITS ---
The [address] [address] Patient Name: MAX SANCHEZ MRN: [id number] date: 1945 Sex: M Assigned Patient Location: ER Current Patient Location: ER Accession/Order Number: [id number] Exam Date: 09/18/2023 02:05 Report Date: 09/18/2023 02:52 At the request of: YASIR OWEN Procedure: CT abdomen pelvis w con EXAM: CT abdomen pelvis w con HISTORY: left groin mass COMPARISON: CT abdomen and pelvis examination dated 07/16/2023. TECHNIQUE: Axial CT images through the abdomen and pelvis were obtained after the intravenous administration of 100 mL Omnipaque 300 contrast. Coronal and sagittal reformats were obtained. Dose reduction techniques were achieved by using automated exposure control and/or adjustment of mA and/or kV according to patient size and/or use of iterative reconstruction technique. FINDINGS: The visualized portions of the lung bases are clear. Partially imaged are postsurgical changes of the chest with median sternotomy wires. Abdomen: The liver and spleen enhance homogeneously without focal lesion. There is no intra or extrahepatic biliary duct dilatation. The gallbladder is surgically absent. Postsurgical changes are seen near the gastroesophageal junction. The spleen is enlarged measuring up to 15.4 cm. Suspected vascular calcifications are seen within the renal pelves. Otherwise, the pancreas, adrenal glands, kidneys, and bowel loops are unremarkable. The appendix is not seen. There is no mesenteric or retroperitoneal lymphadenopathy. A bypass graft coursing from the anterior left chest to the left femoral region is not opacified with contrast. There are postsurgical changes in the bilateral inguinal regions. There is a suspected right common femoral pseudoaneurysm measuring up to 1.7 x 1.6 cm, unchanged compared to the prior examination when measured in a similar fashion (series 3, image 123). There is also a suspected left common femoral artery pseudoaneurysm measuring up to 1.1 x 1.5 cm, previously 1.6 x 1.7 cm (series 3, image 119). There is a large rim-enhancing fluid collection in the left inguinal region measuring up to 7.5 x 4.8 x 13.1 cm with likely internal blood products of varying ages (series 3, image 108 and series 6, image 31). A few foci of air are seen within this fluid collection. There are surrounding inflammatory changes. Pelvis: The bladder and rectum are unremarkable. There is no iliac or inguinal lymphadenopathy. There is advanced atherosclerotic disease. A stent is seen within the right common iliac artery extending through the distal right external iliac artery. This is not opacified with contrast. An additional stent is seen extending from the proximal left common iliac artery through the distal left external iliac artery. The majority of this stent is not opacified with contrast. A femoral-femoral bypass graft is nonopacified with contrast. A stent is seen within the proximal celiac and superior mesenteric arteries. Bone windows show no aggressive osseous lesions. There is remote posttraumatic deformity of the left iliac bone. CT/CT abdomen pelvis w con IMPRESSION: 1. Large fluid collection in the left inguinal region with peripheral rim enhancement, likely internal blood products of varying ages, some possibly acute, and a few foci of air. These findings are concerning for an infected hematoma. 2. Status post cholecystectomy and possible appendectomy as the spleen is not seen. 3. Splenomegaly. 4. A bypass graft coursing from the anterior left chest to the left femoral region, a femoral-femoral bypass graft, and a stent within the right common iliac and right external iliac arteries are not opacified by contrast. The majority of a stent within the left common iliac and left external iliac arteries is also not opacified with contrast. 5. 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 Finding #[address] Owen by Dr. Camilo at 2:50 AM ET on 09/18/2023. Electronically authenticated by: Marialuisa CAMILO Date: 09/18/2023 02:52
[2023-09-18 01:29] LABS: Lactate/Lactic Acid 1.7 mmol/L (0.4-2.0)
[2023-09-18] MEDS: MORPHINE SULFATE 4 MG/ML VIAL IV ×4 (02:49→15:46)
[2023-09-18] MEDS: PIPERACILLIN SODIUM/TAZOBACTAM 3.375 GM in 0.9 % SODIUM CHLORIDE 50 ML IV (03:44)
[2023-09-18] MEDS: VANCOMYCIN HCL 1,000 MG in 0.9 % SODIUM CHLORIDE 250 ML 250 MG IV (04:27)
[2023-09-18 05:31] LABS: Hemoglobin 7.8 g/dL (14.0-18.0)
[2023-09-18] MEDS: PIPERACILLIN SODIUM/TAZOBACTAM 4.5 GM in 0.9 % SODIUM CHLORIDE 50 ML IV (14:43)
== END 2023-09-18 16:25 | disposition short-term general hospital (02) ==
PROVIDERS: Internal Medicine; Emergency Provider Emergency Medicine; PCP Internal Medicine
DX: M79.81 Nontraumatic hematoma of soft tissue (principal); B99.9 Unspecified infectious disease; I73.9 Peripheral vascular disease, unspecified; I48.0 Paroxysmal atrial fibrillation; I25.10 Atherosclerotic heart disease of native coronary artery without angina pectoris; I10 Essential (primary) hypertension; J44.9 Chronic obstructive pulmonary disease, unspecified; E11.9 Type 2 diabetes mellitus without complications; Z95.828 Presence of other vascular implants and grafts; Z89.611 Acquired absence of right leg above knee; Z79.899 Other long term (current) drug therapy; Z79.84 Long term (current) use of oral hypoglycemic drugs; Z87.891 Personal history of nicotine dependence
CPT/HCPCS: 36415; 74177; 80048; 83605; 85018; 85025; 96365; 96367; 96375; 96376; 99285; J2930; J3370; Q9967

== ENCOUNTER 2023-10-06 13:52 | Emergency (ER) | payer MEDICARE, SELFPAY ==
--- OUTSIDE RECORDS SUMMARY | 2023-10-06 14:23 | XMS_ITS | CCD ---
Author Name Unknown Address [address] [place] [address] Organization [facility] Care Team Providers Care Rn Informatics Name Role Phone LUCILLE HORTA Primary Care Unavailable LUCILLE HORTA Referring Unavailable JIMMY LYNN Admitting Unavailable JIMMY LYNN Attending Unavailable LUCILLE HORTA JR Primary Care Physician PROVIDER, UNKNOWN Admitting Unavailable PROVIDER, UNKNOWN Attending Unavailable PROVIDER, UNKNOWN Admitting Unavailable PROVIDER, UNKNOWN Attending Unavailable RULA, DR ADKINS Primary Care Unavailable EVA, DR JENNIFER Garcia Attending Unavailwillard VELASQUEZ, DR JENNIFER Garcia Admitting Unavailwillard VELASQUEZ, DR JENNIFER Garcia Consulting UnavailMARIO Schwartz Consulting Unavailable DONADL LIMA Consulting Unavailable RULA, DR ADKINS Primary Care Unavailable JÚNIOR العراقي Admitting Unavailable JÚNIOR العراقي Attending Unavailable MARIO CULLEN Consulting Unavailable LUZ NIETO Consulting Unavailable CON .JÚNIOR Consulting Unavailable RULA, DR ADKINS Primary Care Unavailable DIAB ., JAZZY Admitting Unavailable DIAB ., JAZZY Consulting Unavailable DIAB ., JAZZY Attending Unavailable ERWIN HURD Attending Unavailable RLUA, DR ADKINS Primary Care Unavailable VICKEYIVANIAAMED Admitting Unavailable VICKEY, IVANIAAMED Consulting Unavailable MARGRET, DR MARCO A Badillo Admitting Unavailable MARGRET, DR MARCO A Badillo Attending Unavailable RULA, DR ADKINS Primary Care Unavailable JENNI, DR ANDREA Perdomo Consulting Unavailable MARGRET, DR MARCO A Badillo Consulting Unavailable Emma Panda Unavailable Unavailable Robert Gomez Unavailable Brennon Cruz Attending Unavailable Vickey, Mohamed FOtilia Admitting Unavailable NONE, XXXX Referring Unavailable Viceky, Mohamed F. Attending Unavailable Vickey, Mohamed F. Admitting Unavailable Vickey, Mohamed FOtilia Attending Unavailable Vickey, Mohamed F. Referring Unavailable Vickey, Mohamed F. Attending Unavailable Vickey, Mohamed F. Admitting Unavailable NONE, XXXX Referring Unavailable Vickey, Mohamed F. Attending Unavailable Vickey, Mohamed F. Admitting Unavailable NONE, XXXX Referring Unavailable Vickey, Mohamed F. Admitting Unavailable NONE, XXXX Referring Unavailable Vickey, Mohamed F. Attending Unavailable Vickey, Mohamed F. Attending Unavailable Vickey, Mohamed F. Admitting Unavailable NONE, XXXX Referring Unavailable Vickey, Mohamed F. Admitting Unavailable Vickey, Mohamed F. Attending Unavailable NONE, XXXX Referring Unavailable Vickey, Mohamed F. Admitting Unavailable Vickey, Mohamed F. Attending Unavailable NONE, XXXX Referring Unavailable Vickey, Mohamed F. Admitting Unavailable NONE, XXXX Referring Unavailable Vickey, Mohamed F. Attending Unavailable Vickey, Mohamed F. Attending Unavailable Vickey, Mohamed F. Admitting Unavailable NONE, XXXX Referring Unavailable Vickey, Mohamed F. Admitting Unavailable Vickey, Mohamed F. Attending Unavailable Vickey, Mohamed F. Referring Unavailable Vickey, Mohamed F. Attending Unavailable Vickey, Mohamed F. Admitting Unavailable Vickey, Mohamed F. Referring Unavailable Vickey, Mohamed F. Admitting Unavailable Vickey, Mohamed F. Attending Unavailable Bekah LAUREN Attending Unavailable ALAHMAD, Alaa Admitting Unavailable VazquezWest nieves Attending Unavailable Blank, Chong S Consulting Unavailable Blank, Chong S Consulting Unavailable Blank, Chong S Consulting Unavailable Blank, Chong S Consulting Unavailable Blank, Chong S Consulting Unavailable Blank, Chong S Consulting Unavailable Blank, Chong S Consulting Unavailable Blank, Chong S Consulting Unavailable Blank, Chong S Consulting Unavailable Blank, Chong S Consulting Unavailable Thornton, Andrea Consulting Unavailable Thornton, Andrea Consulting Unavailable Thornton, Andrea Consulting Unavailable Thornton, Andrea Consulting Unavailable Thornton, Andrea Consulting Unavailable Thornton, Andrea Consulting Unavailable Thornton, Andrea Consulting Unavailable Thornton, Andrea Consulting Unavailable Thornton, Andrea Consulting Unavailable VICKEY, MOHAMED Admitting Unavailable VICKEY, MOHAMED Attending Unavailable RAMILA QUIROZ Referring Unavailable TOFJANETTSKREBECCA Gramajo Referring Unavailable JIMMY OWUSU Attending Unavailable VICKEY, MOHAMED Attending Unavailable VICKEY, MOHAMED Admitting Unavailable ROSSANA MIRZA Referring Unavailable ANAIS VAZQUEZ Consulting Unavailable JUHI ALLEN Referring Unavailable NAZZAL, MUNIER Attending Unavailable NAZZAL, MUNIER Admitting Unavailable BURKET, MARCO A Attending Unavailable BURKET, MARCO A Admitting Unavailable HERCHER, MICHELLE Referring Unavailable VICKEY, MOHAMED Referring Unavailable VICKEY, MOHAMED Referring Unavailable ASSALY, RAGHEB Referring Unavailable VELASQUEZ, MANISHA Attending Unavailable VICKEY, MOHAMED Attending Unavailable VICKEY, MOHAMED Attending Unavailable VICKEY, MOHAMED Attending Unavailable NUGENT, TANJA Referring Unavailable ASSALY, RAGHEB Referring Unavailable SFAELOS, DOROTHY Referring Unavailable CLIFFEL, ELIANA Referring Unavailable WITHERELL, SHELMITH Referring Unavailable WITHERELL, SHELMITH Referring Unavailable VICKEY, MOHAMED Attending Unavailable VICKEY, MOHAMED Admitting Unavailable YASIR NICHOLAS Referring Unavailable LINUS HER Referring Unavailable NUGENT, TANJA Referring Unavailable VICKEY, MOHAMED Attending Unavailable VICKEY, MOHAMED Admitting Unavailable JÚNIOR ANDUJAR Referring Unavailable VICKEY, MOHAMED Attending Unavailable VICKEY, MOHAMED Admitting Unavailable NUGENT, TANJA Referring Unavailable Allergies Allergy Classification Reported Allergen(s) Allergy Type Date of Onset Reaction(s) Facility (4 sources) Codeine; Translations: [codeine] Drug Allergy 9 [facility] Repository (5 sources) Iodine; Translations: [iodine] Drug Allergy 9 Unknown [facility] Rep[facility] (3 sources) Levamisole; Translations: [Phenergan] Drug Allergy 1 [facility] (3 sources) Shellfish; Translations: [shellfish] Drug allergy (disorder) 9 [facility] (18 sources) Codeine; Translations: [codeine] Drug Allergy Vomitus (substance) [facility] (16 sources) Iodine; Translations: [iodine] Drug Allergy Vomitus (substance) [facility] (19 sources) Promethazine; Translations: [promethazine] Drug Allergy 2 Vomitus (substance) [facility] (1 source) Iodine and Iodide Containing Products Drug allergy (disorder) [facility] Repository (5 sources) Shellfish; Translations: [shellfish] Drug allergy Vomiting (disorder) [facility] (2 sources) DAPTOmycin Drug Allergy Unknown [facility] Other (1 source) Shellfish; Translations: [SHELLFISH DERIVED] Propensity to adverse reactions to drug (disorder) 2 [facility] Repository (1 source) IODINATED CONTRAST MEDIA; Translations: [IODINATED CONTRAST MEDIA] Propensity to adverse reactions to drug (disorder) 3 [facility] Repository Medications Current Medications Medication Drug Class(es) Dates Sig (Normalized) Sig (Original) acetaminophen 325 mg oral tablet (4 sources) Start: 03-10-2023 take 2 tablets by mouth every six hours as needed for pain acetaminophen 325 mg Tab 650 mg = 2 tab(s), Oral, q6hr, PRN Pain, Refills(s) 0 Start Date: 03/10/23 Status: Ordered apixaban 5 mg oral tablet (14 sources) Factor Xa Inhibitor Start: 12-09-2022 take 1 tablet by mouth twice daily Eliquis 5 mg oral tablet 5 mg = 1 tab(s), Oral, BID, Refills(s) 0, Blood Thinner Start Date: 04/08/23 Status: Ordered ascorbic acid 500 mg oral tablet (10 sources) Vitamin C Start: 11-26-2022 take 1 tablet by mouth once daily ascorbic acid 500 mg Tab 500 mg = 1 tab(s), Oral, Daily, # 30 tab(s), Refills(s) 0 Start Date: 11/26/22 Status: Ordered aspirin 81 mg delayed release oral tablet (12 sources) Platelet Aggregation Inhibitor, Nonsteroidal Anti-inflammatory Drug Start: 11-26-2022 take 1 tablet by mouth once daily aspirin 81 mg Oral EC Tab 81 mg = 1 tab(s), Oral, Daily, # 30 tab(s), Refills(s) 0, Blood Thinner Start Date: 02/23/23 Status: Ordered biotin 0.3 mg oral tablet (17 sources) Start: 02-23-2023 take 1 tablet by mouth twice daily biotin 300 mcg oral tablet 300 mcg = 1 tab(s), Oral, BID, # 60 tab(s), Refills(s) 0, Prophylaxis Start Date: 02/23/23 Status: Ordered Start: 11-26-2022 biotin Refills (s) 0 Start Date: 11/26/22 Status: Ordered Biotin 10585 MCG as directed Orally bid Active carvedilol 3.125 mg oral tablet (10 sources) alpha-Adrenergic Zuleima, beta-Adrenergic Zuleima Start: 11-26-2022 take 1 tablet by mouth twice daily carvedilol 3.125 mg Tab take 1 tablet by mouth twice a day Start Date: 11/26/22 Status: Ordered Zyrtec (10 sources) Histamine-1 Receptor Antagonist Start: 11-26-2022 Zyrtec Refills(s) 0 Start Date: 11/26/22 Status: Ordered cholecalciferol 0.025 mg oral tablet (17 sources) Vitamin D Start: 02-23-2023 take 1 tablet by mouth once daily cholecalciferol 1000 intl units (25 mcg) oral tablet 50 mcg = 2 tab(s), Oral, Daily, # 30 tab(s), Refills(s) 0, Prophylaxis Start Date: 02/23/23 Status: Ordered Start: 11-26-2022 cholecalcifero l Refills(s) 0 Start Date: 11/26/22 Status: Ordered take 1 capsule by [facility] every twenty-four hours Vitamin D3 1000 UNIT 1 capsule Orally Once a day Active clopidogrel 75 mg oral tablet (11 sources) P2Y12 Platelet Inhibitor Start: 12-09-2022 take 1 tablet by mouth once daily clopidogrel 75 mg Tab 75 mg = 1 tab(s), Oral, Daily Start Date: 12/09/22 Status: Ordered digoxin 0.125 mg oral tablet (19 sources) Cardiac Glycoside Start: 11-26-2022 End: 03-09-2023 take 1 tablet by mouth once daily digoxin 125 mcg (0.125 mg) Tab 125 mcg = 1 tab(s), Oral, Daily, heart, Other (see comment) Start Date: 11/26/22 Status: Ordered diphenhydrAMINE hydrochloride 25 mg oral capsule (5 sources) Histamine-1 Receptor Antagonist Start: 02-10-2023 take 2 capsules by mouth every hour Benadryl 25 mg Cap See Instructions, Take 2 caps PO 1 hour PRIOR to Study, # 2 cap(s), Refills(s) 0, [facility]: [id number], 168, cm, 01/06/23 11:42:00 EDT, Height/Length Dosing, 65.1, kg, 01/06/23 11:42:00 EDT, Weight Dosing Start Date: 02/10/23 Status: Ordered Ensure (5 sources) Start: 03-10-2023 Ensure 237 mL, Oral, BIDWM, Refill(s) 0, protein, Other (see comment) Start Date: 03/10/23 Status: Ordered Start: 03-10-2023 Ensure 237 mL, Oral, BIDWM, Refill(s) 0 Start Date: 03/10/23 Status: Ordered ertapenem 1000 mg injection (1 source) Penem Antibacterial Start: 02-25-2023 End: 03-19-2023 ertapenem 1 g Inj 1,000 mg = 1 EA, IV Piggyback, Daily, Dosing stop date verified w/ rx., X 9 day(s), # 9 EA, Refills(s) 0 Start Date: 02/25/23 Stop Date: 03/19/23 Status: Ordered ezetimibe 10 mg oral tablet (15 sources) Dietary Cholesterol Absorption Inhibitor Start: 04-08-2023 take 1 tablet by mouth once daily ezetimibe 10 mg Tab 10 mg = 1 tab(s), Oral, Daily, Refills(s) 0, High cholesterol Start Date: 04/08/23 Status: Ordered Start: 11-26-2022 take 1 tablet by joyce th once daily ezetimibe 10 mg Tab take 1 tablet by mouth once daily Start Date: 11/26/22 Status: Ordered take 0.5 tablet by m outh once daily Zetia 10 MG 1/2 tablet Orally Once a day Active famotidine 40 mg oral tablet (17 sources) Histamine-2 Receptor Antagonist Start: 11-26-2022 take 1 tablet by mouth once daily famotidine 40 mg Tab 40 mg = 1 tab(s), Oral, Daily, Gas Start Date: 11/26/22 Status: Ordered take 1 tablet by joyce th every twenty-four hours Pepcid 20 MG 1 tablet at bedtime as needed Orally Once a day Active ferrous sulfate 325 mg oral tablet (13 sources) Start: 04-08-2023 take 1 tablet by mouth three times daily ferrous sulfate 325 mg Tab 325 mg = 1 tab(s), Oral, TID, Refills(s) 0, Prophylaxis Start Date: 04/08/23 Status: Ordered Start: 11-26-2022 ferrous sulfat e Refills(s) 0 Start Date: 11/26/22 Status: Ordered Angel (2 sources) Start: 03-10-2023 Angel Oral, BID, 0 Start Date: 03/10/23 Status: Ordered lisinopril 10 mg oral tablet (10 sources) Angiotensin Converting Enzyme Inhibitor Start: 11-26-2022 take 1 tablet by mouth once daily in the morning lisinopril 10 mg Tab take 1 tablet by mouth every morning Start Date: 11/26/22 Status: Ordered magnesium oxide 400 mg oral tablet (5 sources) Start: 02-23-2023 take 1 tablet by mouth once daily magnesium oxide 400 mg Tab 400 mg = 1 tab(s), Oral, Daily, # 10 tab(s), Refills(s) 0, Prophylaxis Start Date: 02/23/23 Status: Ordered metFORMIN hydrochloride 500 mg oral tablet (17 sources) Biguanide Start: 11-26-2022 metformin 500 mg Tab 500 mg = 1 tab(s), Oral, Supper, Blood glucose Start Date: 11/26/22 Status: Ordered Misc DME Prescription (3 sources) Start: 04-06-2023 montelukast 10 mg oral tablet (12 sources) Leukotriene Receptor Antagonist Start: 11-26-2022 take 1 tablet by mouth once daily montelukast 10 mg Tab take 1 tablet by mouth once daily Start Date: 11/26/22 Status: Ordered nystatin [id number] unt/ml oral suspension (2 sources) Polyene Antifungal Start: 02-23-2023 nystatin 100,000 units/mL Oral Susp 1,500,000 unit(s) = 15 mL, Oral, QIDACHS, Refills(s) 0 Start Date: 02/23/23 Status: Ordered omeprazole 40 mg delayed release oral capsule (2 sources) Proton Pump Inhibitor take 1 capsule by mouth once daily Omeprazole 40 MG 1 capsule 30 minutes before morning meal Orally Once a day Active ondansetron 4 mg oral tablet (2 sources) Serotonin-3 Receptor Antagonist take 1 tablet by mouth every twenty-four hours Ondansetron HCl 4 MG 1 tablet Orally Once a day Active oxyCODONE hydrochloride 10 mg oral tablet (1 source) Opioid Agonist Start: 03-10-2023 End: 03-13-2023 take 1 tablet by mouth every six hours as needed for pain oxycodone 10 mg oral tablet 10 mg = 1 tab(s), Oral, q6hr, PRN Pain, X 3 day(s), # 12 tab(s), Refills(s) 0 Start Date: 03/10/23 Stop Date: 03/13/23 Status: Ordered predniSONE 50 mg oral tablet (5 sources) Start: 02-10-2023 take 1 tablet by mouth every twenty-four hours, then take 1 tablet by mouth every twelve hours, then take 1 tablet by mouth every hour predniSONE 50 mg Tab See Instructions, Prednisone 50mg PO 24 hours PRIOR to Study Prednisone 50mg PO 12 Hours PRIOR to study Prednisone 50mg PO 1 hour PRIOR to study, # 3 tab(s), Refills(s) 0, [facility]acy: [facility] #[id number], 168, cm, 01/06/23 11:42:00 EDT, Height/Length Dos... Start Date: 02/10/23 Status: Ordered QUEtiapine 25 mg oral tablet (2 sources) Atypical Antipsychotic Start: 03-10-2023 take 1 tablet by mouth at bedtime SEROquel 25 mg Tab 25 mg = 1 tab(s), Oral, Bedtime, Refills(s) 0 Start Date: 03/10/23 Status: Ordered rosuvastatin calcium 40 mg oral tablet (15 sources) HMG-CoA Reductase Inhibitor Start: 11-26-2022 take 1 tablet by mouth once daily rosuvastatin 40 mg Tab 40 mg = 1 tab(s), Oral, Daily, Refills(s) 0, High cholesterol Start Date: 04/08/23 Status: Ordered sennosides, snf 8.6 mg oral tablet (2 sources) Start: 03-10-2023 take 2 tablets by mouth twice daily as needed senna 8.6 mg Tab 17.2 mg = 2 tab(s), Oral, BID, PRN Other (see comment), Refills(s) 0 Start Date: 03/10/23 Status: Ordered sodium chloride 0.111 meq/ml nasal spray (2 sources) Start: 03-10-2023 sodium chloride nasal 0.65% spray 2 spray(s), Nasal, q2hr Congestion, Refill(s) 0 Start Date: 03/10/23 Status: Ordered traZODone hydrochloride 50 mg oral tablet (12 sources) Serotonin Reuptake Inhibitor Start: 11-26-2022 take 1-2 tablets by mouth at bedtime traZODONE 50 mg Tab TAKE 1 TO 2 TABLETS BY MOUTH AT BEDTIME Start Date: 11/26/22 Status: Ordered valACYclovir 1000 mg oral tablet (10 sources) Herpesvirus Nucleoside Analog DNA Polymerase Inhibitor, Herpes Simplex Virus Nucleoside Analog DNA Polymerase Inhibitor, Herpes Zoster Virus Nucleoside Analog DNA Polymerase Inhibitor Start: 11-26-2022 take 1 tablet by mouth once daily valacyclovir 1 g Tab take 1 tablet by mouth once daily Start Date: 11/26/22 Status: Ordered vericiguat 10 MG Oral Tablet [Verquvo] (15 sources) Start: 11-26-2022 take 1 tablet by mouth once daily Verquvo 10 mg oral tablet 10 mg = 1 tab(s), Oral, Daily, heart, Refills(s) 0 Start Date: 11/26/22 Status: Ordered Start: 11-26-2022 take 1 tablet by joyce th once daily Verquvo 10 mg oral tablet 10 mg = 1 tab(s), Oral, Daily, Refills(s) 0 Start Date: 11/26/22 Status: Ordered Start: 11-26-2022 Verquvo 10 mg oral tablet Refills(s) 0 Start Date: 11/26/22 Status: Ordered vitamin b12 1 mg/ml injectable solution (15 sources) Vitamin B12 Start: 02-23-2023 inject 1000 ug by subcutaneous injection every other week cyanocobalamin 1000 mcg/mL Inj 1,000 mcg = 1 mL, SubCutaneous, q2wk, # 10 mL, Refills(s) 0 Start Date: 02/23/23 Status: Ordered Start: 11-26-2022 cyanocobalamin Refills(s) 0 Start Date: 11/26/22 Status: Ordered Completed/Discontinued Medications Medication Drug Class(es) Dates Sig (Normalized) Sig (Original) cilostazol 100 mg oral tablet (13 sources) Phosphodiesterase 3 Inhibitor Start: 05-09-2023 End: 05-03-2024 take 1 tablet by mouth twice daily cilostazol 100 mg Tab 100 mg = 1 tab(s), Oral, BID, take 1 tablet by mouth twice a day, X 90 day(s), # 180 tab(s), Refills(s) 3, [facility]: [facility] #[id number], 168, cm, 05/09/23 9:37:00 EDT, Height/Length Dosing, 51.5, kg, 04/08/23 8:25:00 EDT, Weight Dosing Start Date: 05/09/23 Stop Date: 05/03/24 Status: Ordered Start: 02-10-2023 End: 03-12-2023 take 1 tablet by mouth twice daily cilostazol 100 mg Tab 100 mg = 1 tab(s), Oral, BID, X 30 day(s), # 60 tab(s), Refills(s) 0, Pharmacy: [facility] #[id number], 168, cm, 01/06/23 11:42:00 EDT, Height/Length Dosing, 65.1, kg, 01/06/23 11:42:00 EDT, Weight Dosing Start Date: 02/10/23 Stop Date: 03/12/23 Status: Ordered Start: 02-10-2023 End: 03-12-2023 take 1 tablet by mouth once daily cilostazol 100 mg Tab 100 mg = 1 tab(s), Oral, Daily, X 30 day(s), Refills(s) 0 Start Date: 02/10/23 Stop Date: 03/12/23 Status: Ordered Insulin Lispro (3 sources) Insulin Analog Start: 03-10-2023 End: 03-10-2023 Insulin Lispro Sliding Scale 0-10 Units, Injection-Insulin, SubCutaneous, Start date 03/10/23 7:30:00 EDT Start Date: 03/10/23 Stop Date: 03/10/23 Status: Completed Start: 03-09-2023 End: 03-09-2023 Insulin Lispro Sliding Scale 0-10 Units, Injection-Insulin, SubCutaneous, Start date 03/09/23 16:30:00 EDT Start Date: 03/09/23 Stop Date: 03/09/23 Status: Completed Start: 03-09-2023 End: 03-09-2023 Insulin Lispro Sliding Scale 0-10 Units, Injection-Insulin, SubCutaneous, Start date 03/09/23 11:30:00 EDT Start Date: 03/09/23 Stop Date: 03/09/23 Status: Completed oxymetazoline hydrochloride 0.5 mg/ml nasal spray (2 sources) Start: 03-10-2023 oxymetazoline Nasal 0.05% Bovey 2 spray(s), Nasal, BID Other (see comment), Refill(s) 0, Nose bleeds - prn use Start Date: 03/10/23 Status: Ordered Problems Active Problems Problem Classification Problem Date Documented Da te Episodic/Chronic Abdominal pain (2 sources) Abdominal pain Onset: 3 Episodic Aortic; peripheral; and visceral artery aneurysms (5 sources) Aneurysm of artery of lower extremity; Translations: [Aneurysm of unspecified site] Onset: 3 Chronic Cardiac dysrhythmias (2 sources) Unspecified atrial fibrillation; Translations: [Unspecified atrial fibrillation] Onset: 3 Chronic Chronic ulcer of skin (1 source) Pressure ulcer of back; Translations: [Pressure ulcer of unspecified part of back, unspecified stage] Onset: 3 Chronic Complication of device; implant or graft (3 sources) Other specified complication of vascular prosthetic devices, implants and grafts, initial encounter; Translations: [Atherosclerosis of coronary artery bypass graft(s) without angina pectoris] Onset: 2 Chronic Complication of device; implant or graft (2 sources) Infection and inflammatory reaction due to other cardiac and vascular devices, implants and grafts, subsequent encounter; Translations: [Infection and inflammatory reaction due to other cardiac and vascular devices, implants and grafts, subsequent encounter] Onset: 3 Episodic Congestive heart failure; nonhypertensive (2 sources) Chronic systolic (congestive) heart failure; Translations: [Chronic systolic (congestive) heart failure] Onset: 3 Chronic Deficiency and other anemia (1 source) Anemia; Translations: [Anemia in other chronic diseases classified elsewhere] Onset: 3 Chronic Deficiency and other anemia (1 source) Anemia, unspecified; Translations: [ANEMIA UNSPECIFIED] Onset: 3 Episodic Deficiency and other anemia (1 source) Anemia; Translations: [Anemia, unspecified] Onset: 3 Episodic Diabetes mellitus with complications (2 sources) Diabetes mellitus due to underlying condition with foot ulcer; Translations: [Diabetes mellitus due to underlying condition with foot ulcer] Onset: 2 Chronic Diabetes mellitus without complication (6 sources) Type 2 diabetes mellitus without complication; Translations: [Type 2 diabetes mellitus without complications] Onset: 3 Chronic Disorders of lipid metabolism (2 sources) Hyperlipidemia, unspecified; Translations: [Hyperlipidemia, unspecified] Onset: 2 Chronic E Codes: Fall (1 source) Fall on same level from slipping, tripping and stumbling with subsequent striking against unspecified object, initial encounter; Translations: [FALL SAME LVL SLIP STRK UNS OBJ INT] Onset: 3 Episodic Esophageal disorders (6 sources) Gastroesophageal reflux disease without esophagitis; Translations: [Gastro-esophageal reflux disease without esophagitis] Onset: 3 Chronic Essential hypertension (2 sources) Essential (primary) hypertension; Translations: [Essential (primary) hypertension] Onset: 2 Chronic Genitourinary symptoms and ill-defined conditions (1 source) Retention of urine; Translations: [Other retention of urine] Onset: 3 Episodic Malaise and fatigue (1 source) Weakness; Translations: [WEAKNESS] Onset: 3 Episodic Open wounds of extremities (2 sources) 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, initial encounter; Translations: [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, initial encounter] Onset: 3 Chronic Other aftercare (4 sources) Follow-up status; Translations: [Encounter for follow-up examination after completed treatment for conditions other than malignant neoplasm] Onset: 3 Episodic Other aftercare (1 source) Surgical follow-up; Translations: [Encounter for other specified surgical aftercare] Onset: 3 Episodic Other aftercare (1 source) [facility] (current) use of anticoagulants; Translations: [FCI CURRNT USE ANTICOAGULANTS] Onset: 3 Episodic Other aftercare (1 source) rodent exterminator (current) use of aspirin; Translations: [HISTORY DEPARTMENT CHAIR CURRENT USE OF ASPIRIN] Onset: 3 Episodic Other aftercare (1 source) [facility] (current) use of antithrombotics/antipl atelets; Translations: [[facility] ANTITHROMBOT/ANTIPLATL ETS] Onset: 3 Episodic Other aftercare (1 source) Other fpc (current) drug therapy; Translations: [OTH HISTORY DEPARTMENT CHAIR CURRENT DRUG THERAPY] Onset: 3 Episodic Other aftercare (1 source) rodent exterminator (current) use of oral hypoglycemic drugs; Translations: [[facility]I USE ORAL HYPOGLYCEMIC DX] Onset: 3 Episodic Other aftercare (1 source) Procedure carried out on subject; Translations: [Encounter for adjustment and management of vascular access device] Onset: 3 Episodic Other bone disease and musculoskeletal deformities (1 source) Amputated above knee; Translations: [Acquired absence of unspecified leg above knee] Onset: 3 Chronic Other bone disease and musculoskeletal deformities (2 sources) Absence of lower limb; Translations: [Acquired absence of right leg above knee] Chronic Other bone disease and musculoskeletal deformities (1 source) Acquired absence of right leg above knee Chronic Other circulatory disease (2 sources) Presence of other vascular implants and grafts; Translations: [Presence of other vascular implants and grafts] Onset: 3 Chronic Other circulatory disease (1 source) Disorder of cardiovascular system; Translations: [Other disorder of circulatory system] Onset: 3 Episodic Other injuries and conditions due to external causes (1 source) History of falling; Translations: [HISTORY OF FALLING] Onset: 3 Episodic Other injuries and conditions due to external causes (2 sources) Other injury of unspecified body region, initial encounter; Translations: [Other injury of unspecified body region, initial encounter] Onset: 3 Episodic Other nervous system disorders (6 sources) Metabolic encephalopathy; Translations: [Metabolic encephalopathy] Onset: 3 Chronic Other nervous system disorders (3 sources) Anesthesia of skin; Translations: [ANESTHESIA OF SKIN] Onset: 3 Episodic Other nervous system disorders (4 sources) Paresthesia of skin; Translations: [PARESTHESIA OF SKIN] Onset: 3 Episodic Other non-traumatic joint disorders (3 sources) Pain in right hip; Translations: [PAIN IN RIGHT HIP] Onset: 3 Episodic Other nutritional; endocrine; and metabolic disorders (5 sources) 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-25-2023 Chronic Other upper respiratory disease (1 source) Bleeding from nose; Translations: [Epistaxis] Onset: 3 Episodic Peripheral and visceral atherosclerosis (15 sources) Peripheral vascular disease, unspecified; Translations: [Atherosclerosis of [place] arteries of extremities with rest pain, left leg] Onset: 3 Chronic Phlebitis; thrombophlebitis and thromboembolism (3 sources) H/O: thrombosis 04-08-2023 Episodic Residual codes; unclassified (1 source) Patient encounter status; Translations: [Other specified health status] Onset: 3 Episodic Skin and subcutaneous tissue infections (2 sources) Local infection of the skin and subcutaneous tissue, unspecified; Translations: [Local infection of the skin and subcutaneous tissue, unspecified] Onset: 3 Episodic Unclassified (1 source) CONTACT W/AND (SUSP) EXPOS COVID-19; Translations: [CONTACT W/AND (SUSP) EXPOS COVID-19] Onset: 3 Past or Other Problems Problem Classification Problem Date Documented Da te Episodic/Chronic Complications of surgical procedures or medical care (4 sources) Postoperative complication; Translations: [Other postprocedural complications and disorders of genitourinary system] Onset: 11-29-2022 Episodic Other aftercare (2 sources) Encounter for follow-up examination after completed treatment for conditions other than malignant neoplasm; Translations: [Encounter for follow-up examination after completed treatment for conditions other than malignant neoplasm] Onset: 05-16-2023 Episodic Other circulatory disease (3 sources) Hemorrhage, not elsewhere classified; Translations: [HEMORRHAGE NOT ELSEWHERE CLASSIFIED] Onset: 11-29-2022 Episodic Other circulatory disease (3 sources) Other disorder of circulatory system; Translations: [OTHER DISORDER CIRCULATORY SYSTEM] Onset: 10-07-2022 Episodic Other connective tissue disease (1 source) Pain in left leg; Translations: [PAIN IN LEFT LEG] Onset: 11-03-2022 Episodic Other connective tissue disease (1 source) Other specified soft tissue disorders; Translations: [OTHER SPEC SOFT TISSUE DISORDERS] Onset: 11-03-2022 Episodic Other gastrointestinal disorders (2 sources) Drug induced constipation; Translations: [Drug induced constipation] Onset: 11-03-2022 Episodic Other nervous system disorders (2 sources) Other acute postprocedural pain; Translations: [Other acute postprocedural pain] Onset: 11-03-2022 Episodic Screening and history of mental health and substance abuse codes (3 sources) Personal history of nicotine dependence; Translations: [PERSONAL HISTORY OF NICOTINE DEPEND] Onset: 10-07-2022 Episodic Superficial injury; contusion (3 sources) Contusion of right hip, initial encounter; Translations: [Contusion of abdominal wall, initial encounter] Onset: 11-03-2022 Episodic Results Test Name Value Interpretation Reference Range Facility 36on 09-30-2023 36 No Opat received. Clare crawford faxed to us showing stable results. Normal [facility] 30on 09-26-2023 30 The patient is Moder ately Stable - Low risk of patient condition declining or worsening The patient's goals for the shift include Comfort The clinical goals for the shift include VSS Normal [facility] 30 Normal [facility] ANTI-XA (HEPARIN LEVEL)on HEPARIN UNFRACTIONATED (U/ML) IN PPP BY CHROMOGENIC METHOD 0.18 IU/mL Low 0.3-0.7 [facility] Comment on above: Result Comment: Wells roxaban and Apixaban will interfere with the anti Xa assay used to monitor UFH and LMWH. Performed By: #### L [id number] ####[facility] ([facility])[address] [place] [address] BASIC METABOLIC PANELon 09-09 Anion gap [Moles/Vol] 8 mmol/L Normal 7-20 [facility] Comment on above: Performed By: #### L [id number] ####[facility] (AKER)[address] [place] [address] Calcium [Mass/Vol] 8.5 mg/dL Low 8.6-10.3 [facility] Comment on above: Performed By: #### L [id number] ####[facility] (BEAKER)[address] [place] [address] Chloride [Moles/Vol] 105 mmol/L Normal 98-107 [facility] Comment on above: Performed By: #### L [id number] ####[facility] (BEAKER)[address] [place] [address] CO2 [Moles/Vol] 26 mmol/L Normal 21-31 [facility] Comment on above: Performed By: #### L [id number] ####[facility] ([facility]ER)[address] [place] [address] Creatinine [Mass/Vol] 0.40 mg/dL Low 0.70-1.30 [facility] Comment on above: Performed By: #### L [id number] ####[facility] ([facility])[address] [place] [address] GLOMERULAR FILTRATION RATE ML/MIN/1.73 SQ M.PREDICTED 113.1 mL/min/1.73m*2 Normal >60.0 [facility] Comment on above: Result Comment: The [facility]???s estimated glomerular filtration rate (eGFR) will no longer include consideration of race in its calculation. The National Kidney Foundation???s eGFR Task Force developed new recommendations for the estimation of the glomerular filtration rate in the [place] They recommend immediate implementation of the new equation refit without the race variable in all laboratories because the calculation does not include race. In addition to not including race in the calculation and reporting, it included diversity in its development, and has acceptable performance characteristics and potential consequences that do not disproportionately affect any one group of individuals. Performed By: #### L [id number] ####[facility] ([facility])[address] [place] [address] Glucose [Mass/Vol] 92 mg/dL Normal 70-100 [facility] Comment on above: Performed By: #### L [id number] ####[facility] ([facility])[address] [place] [address] Potassium [Moles/Vol] 3.8 mmol/L Normal 3.5-5.1 [facility] Comment on above: Performed By: #### L [id number] ####[facility] ([facility])[address] [place] [address] Sodium [Moles/Vol] 135 mmol/L Low 136-145 [facility] Comment on above: Performed By: #### L [id number] ####[facility] ([facility])[address] [place] [address] Urea nitrogen [Mass/Vol] 14 mg/dL Normal 7-25 [facility] Comment on above: Performed By: #### L [id number] ####[facility] ([facility])[address] [place] [address] UREA NITROGEN/CREATININE (MASS RATIO) IN SER/PLAS 35.0 Normal [facility] Comment on above: Performed By: #### L [id number] ####[facility] ([facility])[address] [place] [address] CBC WITH AUTO DIFFERENTIALon 09-26-2023 Erythrocyte distribution width (RBC) [Ratio] 18.0 % High 11.5-15.0 [facility] Comment on above: Performed By: #### L [id number] ####[facility] ([facility])[address] [place] [address] ERYTHROCYTE MEAN CORPUSCULAR HEMOGLOBIN CONCENTRATION (G/DL) BY AUTOMATED 32.0 g/dL Normal 32.0-35.0 [facility] Comment on above: Performed By: #### L [id number] ####[facility] ([facility])[address] [place] [address] Hematocrit (Bld) [Volume fraction] 22.8 % Low 39.0-55.0 [facility] Comment on above: Performed By: #### L [id number] ####[facility] ([facility])[address] [place] [address] Hemoglobin (Bld) [Mass/Vol] 7.3 g/dL Low 13.0-17.0 [facility] Comment on above: Performed By: #### L [id number] ####[facility] ([facility])[address] [place] [address] IMMATURE PLATELET FRACTION % 3.7 % Normal 0.8-6.3 [facility] Comment on above: Performed By: #### L [id number] ####[facility] ([facility])[address] [place] [address] MCH (RBC) [Entitic mass] 27.9 pg Normal 27.0-33.0 [facility] Comment on above: Performed By: #### L [id number] ####[facility] ([facility])[address] [place] [address] MCV (RBC) [Entitic vol] 87.0 fL Normal 82.0-98.0 [facility] Comment on above: Performed By: #### L [id number] ####[facility] ([facility])[address] [place] [address] NRBC (PER 100 WBCS) BY AUTOMATED COUNT 0.0 % Normal 0 [facility] Comment on above: Performed By: #### L [id number] ####[facility] ([facility])[address] [place] [address] PLATELETS (10*3/UL) IN BLOOD AUTOMATED COUNT 75 10*3/uL Low 150-400 [facility] Comment on above: Result Comment: CASSIE ODONNELL PV = 73 @ 09/25/23 Performed By: #### L [id number] ####[facility] ([facility])[address] [place] [address] RBC (Bld) [#/Vol] 2.62 10*6/uL Low 4.20-5.70 [facility] Comment on above: Performed By: #### L [id number] ####[facility] ([facility])[place] [address] WBC (Bld) [#/Vol] 2.12 10*3/uL Low 4.00-10.60 [facility] Comment on above: Performed By: #### L [id number] ####[facility] ([facility])[address] [place] [address] MAGNESIUMon 09-26-2023 Magnesium [Mass/Vol] 1.6 mg/dL Low 1.9-2.7 [facility] Comment on above: Performed By: #### L [id number] ####[facility] ([facility])[address] [place] [address] MANUAL DIFFERENTIALon 2022 BASOPHILS (10*3/UL) IN BLOOD BY CALCULATION 0.01 10*3/uL Normal 0.00-0.20 [facility] Comment on above: Performed By: #### L [id number] ####[facility] ([facility])[address] [place] [address] BASOPHILS/100 LEUKOCYTES IN BLOOD BY AUTOMATED COUNT 0.5 % Normal 0.0-1.0 [facility] Comment on above: Performed By: #### L [id number] ####[facility] ([facility])[address] [place] [address] EOSINOPHILS (10*3/UL) IN BLOOD BY CALCULATION 0.02 10*3/uL Normal 0.00-0.50 [facility] Comment on above: Performed By: #### L [id number] ####[facility] ([facility])[address] [place] [address] EOSINOPHILS/100 LEUKOCYTES IN BLOOD BY AUTOMATED COUNT 0.9 % Normal 0.0-6.0 [facility] Comment on above: Performed By: #### L [id number] ####[facility] ([facility])[address] [place] [address] IMMATURE GRANULOCYTES (10*3/UL) IN BLOOD BY CALCULATION 0.01 10*3/uL Normal 0.00-0.20 [facility] Comment on above: Performed By: #### L [id number] ####[facility] ([facility])[address] [place] [address] IMMATURE GRANULOCYTES/100 LEUKOCYTES IN BLOOD BY AUTOMATED COUNT 0.5 % Normal 0.0-1.0 [facility] Comment on above: Performed By: #### L [id number] ####[facility] ([facility])[address] [place] [address] LYMPHOCYTES (10*3/UL) IN BLOOD BY CALCULATION 0.36 10*3/uL Low 1.20-4.00 [facility] Comment on above: Performed By: #### L [id number] ####[facility] ([facility])[address] [place] [address] LYMPHOCYTES/100 LEUKOCYTES IN BLOOD BY AUTOMATED COUNT 17.0 % Low 20.0-45.0 [facility] Comment on above: Performed By: #### L [id number] ####[facility] ([facility])[address] [place] [address] MONOCYTES (10*3/UL) IN BLOOD BY CALCUATION 0.24 10*3/uL Normal 0.10-1.00 [facility] Comment on above: Performed By: #### L [id number] ####[facility] ([facility])[address] [place] [address] MONOCYTES/100 LEUKOCYTES IN BLOOD BY AUTOMATED COUNT 11.3 % Normal 5.0-12.0 [facility] Comment on above: Performed By: #### L [id number] ####[facility] ([facility])[address] [place] [address] NEUTROPHILS (10*3/UL) IN BLOOD BY CALCULATION 1.5 10*3/uL Low 1.6-7.6 [facility] Comment on above: Performed By: #### L [id number] ####[facility] ([facility])[address] [place] [address] NEUTROPHILS/100 LEUKOCYTES IN BLOOD BY AUTOMATED COUNT 69.8 % Normal 40.0-72.0 [facility] Comment on above: Performed By: #### L [id number] ####[facility] ([facility])[address] [place] [address] NURSNOTEon 09-26-2023 NURSNOTE Normal [facility] NURSNOTE Normal [facility] PHOSPHORUSon 09-26-2023 Magnesium [Mass/Vol] 3.2 mg/dL Normal 2.5-5.0 [facility] Comment on above: Performed By: #### L [id number] ####[facility] ([facility])[address] [place] [address] POCT GLUCOSE METER UNSOLICIT ED RESULTSon 09-26-2023 Glucose [Mass/Vol] 117 mg/dL High 70-105 [facility] Comment on above: Order Comment: Waive d Testing in the ED is performed under the ED CLIA certificate #[id number]. Result Comment: [email or web address] Performed By: #### L [id number] ####[facility] ([facility])[address] [place] [address] 30on 09-25-2023 30 Normal [facility] ANTI-XA (HEPARIN LEVEL)on HEPARIN UNFRACTIONATED (U/ML) IN PPP BY CHROMOGENIC METHOD 0.17 IU/mL Low 0.3-0.7 [facility] Comment on above: Result Comment: Msaha roxaban and Apixaban will interfere with the anti Xa assay used to monitor UFH and LMWH. Performed By: #### L [id number] ####[facility] ([facility])[address] [place] [address] HEPARIN UNFRACTIONATED (U/ML) IN PPP BY CHROMOGENIC METHOD 0.19 IU/mL Low 0.3-0.7 [facility] Comment on above: Result Comment: Masha roxaban and Apixaban will interfere with the anti Xa assay used to monitor UFH and LMWH. Performed By: #### L [id number] ####[facility] ([facility])[address] [place] [address] HEPARIN UNFRACTIONATED (U/ML) IN PPP BY CHROMOGENIC METHOD 0.15 IU/mL Invalid Interpretation Code 0.3-0.7 [facility] Comment on above: Result Comment: Masha roxaban and Apixaban will interfere with the anti Xa assay used to monitor UFH and LMWH. Performed By: #### L [id number] ####[facility] ([facility])[address] [place] [address] APTTon 09-25-2023 ACTIVATED PARTIAL THROMBOPLASTIN TIME IN PPP BY COAGULATION ASSAY 71.9 Seconds High 25.0-35.0 [facility] Comment on above: Result Comment: Clin ical significance of the APTT is questionable in the presence of heparin. Performed By: #### L [id number] ####[facility] ([facility])[address] [place] [address] BASIC METABOLIC PANELon 09-09 Anion gap [Moles/Vol] 8 mmol/L Normal 7-[address] [facility] Comment on above: Performed By: #### L [id number] ####[facility] ([facility])[address] [place] [address] Calcium [Mass/Vol] 8.4 mg/dL Low 8.6-10.3 [facility] Comment on above: Performed By: #### L [id number] ####[facility] ([facility])[address] [place] [address] Chloride [Moles/Vol] 105 mmol/L Normal 98-107 [facility] Comment on above: Performed By: #### L [id number] ####[facility] ([facility]ER)[address] [place] [address] CO2 [Moles/Vol] 25 mmol/L Normal 21-31 [facility] Comment on above: Performed By: #### L [id number] ####[facility] ([facility]ER)[address] [place] [address] Creatinine [Mass/Vol] 0.31 mg/dL Low 0.70-1.30 [facility] Comment on above: Performed By: #### L [id number] ####[facility] [place] [address] GLOMERULAR FILTRATION RATE ML/MIN/1.73 SQ M.PREDICTED 122.1 mL/min/1.73m*2 Normal >60.0 [facility] Comment on above: Result Comment: The [facility]???s estimated glomerular filtration rate (eGFR) will no longer include consideration of race in its calculation. The National Kidney Foundation???s eGFR Task Force developed new recommendations for the estimation of the glomerular filtration rate in the [place] They recommend immediate implementation of the new equation refit without the race variable in all laboratories because the calculation does not include race. In addition to not including race in the calculation and reporting, it included diversity in its development, and has acceptable performance characteristics and potential consequences that do not disproportionately affect any one group of individuals. Performed By: #### L [id number] ####[facility] ([facility])[address] [place] [address] Glucose [Mass/Vol] 107 mg/dL High 70-100 [facility] Comment on above: Performed By: #### L [id number] ####[facility] ([facility])[address] [place] [address] Potassium [Moles/Vol] 3.7 mmol/L Normal 3.5-5.[address] [facility] Comment on above: Performed By: #### L [id number] ####[facility] ([facility])[address] [place] [address] Sodium [Moles/Vol] 134 mmol/L Low 136-145 [facility] Comment on above: Performed By: #### L [id number] ####[facility] ([facility])[address] [place] [address] Urea nitrogen [Mass/Vol] 13 mg/dL Normal 7-25 [facility] Comment on above: Performed By: #### L [id number] ####[facility] ([facility])[address] [place] [address] UREA NITROGEN/CREATININE (MASS RATIO) IN SER/PLAS 41.9 Normal [facility] Comment on above: Performed By: #### L [id number] ####[facility] ([facility])[address] [place] [address] CBC WITH AUTO DIFFERENTIALon 09-25-2023 Erythrocyte distribution width (RBC) [Ratio] 17.7 % High 11.5-15.0 [facility] Comment on above: Performed By: #### L [id number] ####[facility] ([facility])[address] [place] [address] ERYTHROCYTE MEAN CORPUSCULAR HEMOGLOBIN CONCENTRATION (G/DL) BY AUTOMATED 31.3 g/dL Low 32.0-35.0 [facility] Comment on above: Performed By: #### L [id number] ####[facility] ([facility])[address] [place] [address] Hematocrit (Bld) [Volume fraction] 24.0 % Low 39.0-55.0 [facility] Comment on above: Performed By: #### L [id number] ####[facility] ([facility])[address] [place] [address] Hemoglobin (Bld) [Mass/Vol] 7.5 g/dL Low 13.0-17.0 [facility] Comment on above: Performed By: #### L [id number] ####[facility] ([facility])[address] [place] [address] IMMATURE PLATELET FRACTION % 2.7 % Normal 0.8-6.3 [facility] Comment on above: Performed By: #### L [id number] ####[facility] ([facility])[address] [place] [address] MCH (RBC) [Entitic mass] 27.0 pg Normal 27.0-33.0 [facility] Comment on above: Performed By: #### L [id number] ####[facility] ([facility])[address] [place] [address] MCV (RBC) [Entitic vol] 86.3 fL Normal 82.0-98.0 [facility] Comment on above: Performed By: #### L [id number] ####[facility] ([facility])[address] [place] [address] NRBC (PER 100 WBCS) BY AUTOMATED COUNT 0.0 % Normal 0 [facility] Comment on above: Performed By: #### L [id number] ####[facility] ([facility] [place] [address] PLATELETS (10*3/UL) IN BLOOD AUTOMATED COUNT 73 10*3/uL Low 150-400 [facility] Comment on above: Result Comment: Last plt 73 1d Performed By: #### L [id number] ####[facility] ([facility])[address] [place] [address] RBC (Bld) [#/Vol] 2.78 10*6/uL Low 4.20-5.70 [facility] Comment on above: Performed By: #### L [id number] ####[facility] ([facility])[address] [place] [address] WBC (Bld) [#/Vol] 2.11 10*3/uL Low 4.00-10.60 [facility] Comment on above: Performed By: #### L [id number] ####[facility] ([facility])[address] [place] [address] MAGNESIUMon 09-25-2023 Magnesium [Mass/Vol] 1.6 mg/dL Low 1.9-2.7 [facility] Comment on above: Performed By: #### L [id number] ####[facility] ([facility])[address] [place] [address] MANUAL DIFFERENTIALon 2022 BASOPHILS (10*3/UL) IN BLOOD BY CALCULATION 0.01 10*3/uL Normal 0.00-0.20 [facility] Comment on above: Performed By: #### L [id number] ####[facility] ([facility])[address] [place] [address] BASOPHILS/100 LEUKOCYTES IN BLOOD BY AUTOMATED COUNT 0.5 % Normal 0.0-1.0 [facility] Comment on above: Performed By: #### L [id number] ####[facility] ([facility])[address] [place] [address] EOSINOPHILS (10*3/UL) IN BLOOD BY CALCULATION 0.04 10*3/uL Normal 0.00-0.50 [facility] Comment on above: Performed By: #### L [id number] ####[facility] ([facility])[address] [place] [address] EOSINOPHILS/100 LEUKOCYTES IN BLOOD BY AUTOMATED COUNT 1.9 % Normal 0.0-6.0 [facility] Comment on above: Performed By: #### L [id number] ####[facility] ([facility])[address] [place] [address] IMMATURE GRANULOCYTES (10*3/UL) IN BLOOD BY CALCULATION 0.01 10*3/uL Normal 0.00-0.20 [facility] Comment on above: Performed By: #### L [id number] ####[facility] ([facility])[address] [place] [address] IMMATURE GRANULOCYTES/100 LEUKOCYTES IN BLOOD BY AUTOMATED COUNT 0.5 % Normal 0.0-1.0 [facility] Comment on above: Performed By: #### L [id number] ####[facility] ([facility])[address] [place] [address] LYMPHOCYTES (10*3/UL) IN BLOOD BY CALCULATION 0.37 10*3/uL Low 1.20-4.00 [facility] Comment on above: Performed By: #### L [id number] ####[facility] ([facility])[address] [place] [address] LYMPHOCYTES/100 LEUKOCYTES IN BLOOD BY AUTOMATED COUNT 17.5 % Low 20.0-45.0 [facility] Comment on above: Performed By: #### L [id number] ####[facility] ([facility])[address] [place], [place] [address] MONOCYTES (10*3/UL) IN BLOOD BY CALCUATION 0.22 10*3/uL Normal 0.10-1.00 [facility] Comment on above: Performed By: #### L [id number] ####[facility] ([facility])[address] [place] [address] MONOCYTES/100 LEUKOCYTES IN BLOOD BY AUTOMATED COUNT 10.4 % Normal 5.0-12.0 [facility] Comment on above: Performed By: #### L [id number] ####[facility] [facility] ([facility])[address] [place] [address] NEUTROPHILS (10*3/UL) IN BLOOD BY CALCULATION 1.5 10*3/uL Low 1.6-7.6 [facility] Comment on above: Performed By: #### L [id number] ####[facility] ([facility])[address] [place] [address] NEUTROPHILS/100 LEUKOCYTES IN BLOOD BY AUTOMATED COUNT 69.2 % Normal 40.0-72.0 [facility] Comment on above: Performed By: #### L [id number] ####[facility] ([facility])[address] [place] [address] NURSNOTEon 09-25-2023 NURSNOTE Pt would not let francis lee change his wound vac, stated that it would be changed tomorrow when he is discharged. He did however let us bathe him, change linens and change his picc line dressing today. Paulina Kay RN [facility] PHOSPHORUSon 09-25-2023 Magnesium [Mass/Vol] 2.7 mg/dL Normal 2.5-5.0 [facility] Comment on above: Performed By: #### L [id number] ####[facility] ([facility])[address] [place] [address] POCT GLUCOSE METER UNSOLICIT ED RESULTSon 09-25-2023 Glucose [Mass/Vol] 97 mg/dL Normal 70-105 [facility] Comment on above: Order Comment: Waive d Testing in the ED is performed under the ED CLIA certificate #[id number]. Result Comment: [email or web address] Performed By: #### L [id number] ####[facility] ([facility])[address] [place] [address] Glucose [Mass/Vol] 188 mg/dL High 70-105 [facility] Comment on above: Order Comment: Waive d Testing in the ED is performed under the ED CLIA certificate #[id number]. Result Comment: [email or web address] Performed By: #### L [id number] ####[facility] ([facility])[address] [place] [address] Glucose [Mass/Vol] 125 mg/dL High 70-105 [facility] Comment on above: Order Comment: Waive d Testing in the ED is performed under the ED CLIA certificate #[id number]. Result Comment: [email or web address] Performed By: #### L [id number] ####[facility] ([facility])[address] [place] [address] Glucose [Mass/Vol] 108 mg/dL High 70-105 [facility] Comment on above: Order Comment: Waive d Testing in the ED is performed under the ED CLIA certificate #[id number]. Result Comment: [email or web address] Performed By: #### L [id number] ####[facility] ([facility])[address] [place] [address] 30on 09-24-2023 30 Normal [facility] 30 Normal [facility] ANTI-XA (HEPARIN LEVEL)on HEPARIN UNFRACTIONATED (U/ML) IN PPP BY CHROMOGENIC METHOD <0.10 Invalid Interpretation Code 0.3-0.7 [facility] Comment on above: Result Comment: Wells roxaban and Apixaban will interfere with the anti Xa assay used to monitor UFH and LMWH. Performed By: #### L [id number] ####[facility] ([facility])[address] [place] [address] BASIC METABOLIC PANELon 09-09 Anion gap [Moles/Vol] 8 mmol/L Normal 7-20 [facility] Comment on above: Performed By: #### L [id number] ####[facility] ([facility])[address] [place] [address] Calcium [Mass/Vol] 8.4 mg/dL Low 8.6-10.3 [facility] Comment on above: Performed By: #### L [id number] ####[facility] ([facility])[address] [place] [address] Chloride [Moles/Vol] 103 mmol/L Normal 98-107 [facility] Comment on above: Performed By: #### L [id number] ####[facility] ([facility] [place] [address] CO2 [Moles/Vol] 28 mmol/L Normal 21-31 [facility] Comment on above: Performed By: #### L [id number] ####[facility] ([facility])[address] [place] [address] Creatinine [Mass/Vol] 0.36 mg/dL Low 0.70-1.30 [facility] Comment on above: Performed By: #### L [id number] ####[facility] [address] GLOMERULAR FILTRATION RATE ML/MIN/1.73 SQ M.PREDICTED 116.7 mL/min/1.73m*2 Normal >60.0 [facility] Comment on above: Result Comment: The [facility]???s estimated glomerular filtration rate (eGFR) will no longer include consideration of race in its calculation. The National Kidney Foundation???s eGFR Task Force developed new recommendations for the estimation of the glomerular filtration rate in the [place] They recommend immediate implementation of the new equation refit without the race variable in all laboratories because the calculation does not include race. In addition to not including race in the calculation and reporting, it included diversity in its development, and has acceptable performance characteristics and potential consequences that do not disproportionately affect any one group of individuals. Performed By: #### L [id number] ####[facility] ([facility])[address] [place] [address] Glucose [Mass/Vol] 100 mg/dL Normal 70-100 [facility] Comment on above: Performed By: #### L [id number] ####[facility] ([facility])[address] [place] [address] Potassium [Moles/Vol] 3.5 mmol/L Normal 3.5-5.1 [facility] Comment on above: Performed By: #### L [id number] ####[facility] ([facility])[address] [place] [address] Sodium [Moles/Vol] 135 mmol/L Low 136-145 [facility] Comment on above: Performed By: #### L [id number] ####[facility] [address] Urea nitrogen [Mass/Vol] 13 mg/dL Normal 7-25 [facility] Comment on above: Performed By: #### L [id number] ####[facility] ([facility] [place] [address] UREA NITROGEN/CREATININE (MASS RATIO) IN SER/PLAS 36.1 Normal [facility] Comment on above: Performed By: #### L [id number] ####[facility] ([facility])[address] [place] [address] CBC WITH AUTO DIFFERENTIALon 09-24-2023 Erythrocyte distribution width (RBC) [Ratio] 17.8 % High 11.5-15.0 [facility] Comment on above: Performed By: #### L [id number] ####[facility] ([facility])[address] [place] [address] ERYTHROCYTE MEAN CORPUSCULAR HEMOGLOBIN CONCENTRATION (G/DL) BY AUTOMATED 32.1 g/dL Normal 32.0-35.0 [facility] Comment on above: Performed By: #### L [id number] ####[facility] ([facility])[address] [place] [address] Hematocrit (Bld) [Volume fraction] 23.7 % Low 39.0-55.0 [facility] Comment on above: Performed By: #### L [id number] ####[facility] ([facility])[address] [place] [address] Hemoglobin (Bld) [Mass/Vol] 7.6 g/dL Low 13.0-17.0 [facility] Comment on above: Performed By: #### L [id number] ####[facility] ([facility])[address] [place] [address] IMMATURE PLATELET FRACTION % 3.1 % Normal 0.8-6.3 [facility] Comment on above: Performed By: #### L [id number] ####[facility] ([facility])[address] [place] [address] MCH (RBC) [Entitic mass] 27.7 pg Normal 27.0-33.0 [facility] Comment on above: Performed By: #### L [id number] ####[facility] ([facility] [place] [address] MCV (RBC) [Entitic vol] 86.5 fL Normal 82.0-98.0 [facility] Comment on above: Performed By: #### L [id number] ####[facility] ([facility])[address] [place] [address] NRBC (PER 100 WBCS) BY AUTOMATED COUNT 0.0 % Normal 0 [facility] Comment on above: Performed By: #### L [id number] ####[facility] ([facility])[address] [place] [address] PLATELETS (10*3/UL) IN BLOOD AUTOMATED COUNT 73 10*3/uL Low 150-400 [facility] Comment on above: Performed By: #### L [id number] ####[facility] ([facility])[address] [place] [address] RBC (Bld) [#/Vol] 2.74 10*6/uL Low 4.20-5.70 [facility] Comment on above: Performed By: #### L [id number] ####[facility] ([facility])[address] [place] [address] WBC (Bld) [#/Vol] 2.37 10*3/uL Low 4.00-10.60 [facility] Comment on above: Performed By: #### L [id number] ####[facility] ([facility])[address] [place] [address] MAGNESIUMon 09-24-2023 Magnesium [Mass/Vol] 1.6 mg/dL Low 1.9-2.7 [facility] Comment on above: Performed By: #### L [id number] ####[facility] ([facility])[address] [place] [address] MANUAL DIFFERENTIALon 2022 BASOPHILS (10*3/UL) IN BLOOD BY CALCULATION 0.01 10*3/uL Normal 0.00-0.20 [facility] Comment on above: Performed By: #### L [id number] ####[facility] ([facility])[address] [place] [address] BASOPHILS/100 LEUKOCYTES IN BLOOD BY AUTOMATED COUNT 0.4 % Normal 0.0-1.0 [facility] Comment on above: Performed By: #### L [id number] ####[facility] ([facility])[address] [place] [address] EOSINOPHILS (10*3/UL) IN BLOOD BY CALCULATION 0.03 10*3/uL Normal 0.00-0.50 [facility] Comment on above: Performed By: #### L [id number] ####[facility] ([facility])[address] [place] [address] EOSINOPHILS/100 LEUKOCYTES IN BLOOD BY AUTOMATED COUNT 1.3 % Normal 0.0-6.0 [facility] Comment on above: Performed By: #### L [id number] ####[facility] ([facility])[address] [place] [address] IMMATURE GRANULOCYTES (10*3/UL) IN BLOOD BY CALCULATION 0.01 10*3/uL Normal 0.00-0.20 [facility] Comment on above: Performed By: #### L [id number] ####[facility] ([facility])[address] [place] [address] IMMATURE GRANULOCYTES/100 LEUKOCYTES IN BLOOD BY AUTOMATED COUNT 0.4 % Normal 0.0-1.0 [facility] Comment on above: Performed By: #### L [id number] ####[facility] ([facility])[address] [place] [address] LYMPHOCYTES (10*3/UL) IN BLOOD BY CALCULATION 0.37 10*3/uL Low 1.20-4.00 [facility] Comment on above: Performed By: #### L [id number] ####[facility] ([facility])[address] [place] [address] LYMPHOCYTES/100 LEUKOCYTES IN BLOOD BY AUTOMATED COUNT 15.6 % Low 20.0-45.0 [facility] Comment on above: Performed By: #### L [id number] ####[facility] ([facility] [place] [address] MONOCYTES (10*3/UL) IN BLOOD BY CALCUATION 0.19 10*3/uL Normal 0.10-1.00 [facility] Comment on above: Performed By: #### L [id number] ####[facility] ([facility])[address] [place] [address] MONOCYTES/100 LEUKOCYTES IN BLOOD BY AUTOMATED COUNT 8.0 % Normal 5.0-12.0 [facility] Comment on above: Performed By: #### L [id number] ####[facility] ([facility])[address] [place] [address] NEUTROPHILS (10*3/UL) IN BLOOD BY CALCULATION 1.8 10*3/uL Normal 1.6-7.6 [facility] Comment on above: Performed By: #### L [id number] ####[facility] ([facility])[address], [place] [address] NEUTROPHILS/100 LEUKOCYTES IN BLOOD BY AUTOMATED COUNT 74.3 % High 40.0-72.0 [facility] Comment on above: Performed By: #### L [id number] ####[facility] ([facility])[address] [place] [address] PHOSPHORUSon 09-24-2023 Magnesium [Mass/Vol] 3.0 mg/dL Normal 2.5-5.0 [facility] Comment on above: Performed By: #### L [id number] ####[facility] ([facility])[address] [place] [address] POCT GLUCOSE METER UNSOLICIT ED RESULTSon 09-24-2023 Glucose [Mass/Vol] 188 mg/dL High 70-105 [facility] Comment on above: Order Comment: Waive d Testing in the ED is performed under the ED CLIA certificate #[id number]. Result Comment: [email or web address] Performed By: #### L [id number] ####[facility] ([facility])[address] [place] [address] Glucose [Mass/Vol] 170 mg/dL High 70-105 [facility] Comment on above: Order Comment: Waive d Testing in the ED is performed under the ED CLIA certificate #[id number]. Result Comment: [email or web address] Performed By: #### L [id number] ####[facility] ([facility])[address] [place] [address] Glucose [Mass/Vol] 237 mg/dL High 70-105 [facility] Comment on above: Order Comment: Waive d Testing in the ED is performed under the ED CLIA certificate #[id number]. Result Comment: [email or web address] Performed By: #### L [id number] ####[facility] ([facility])[address] [place] [address] Glucose [Mass/Vol] 105 mg/dL Normal 70-105 [facility] Comment on above: Order Comment: Waive d Testing in the ED is performed under the ED CLIA certificate #[id number]. Result Comment: [email or web address] Performed By: #### L [id number] ####[facility] ([facility])[address] [address] VANCOMYCIN, TROUGHon 023 VANCOMYCIN (UG/ML) IN SER/PLAS - TROUGH 11.7 ug/mL Normal 5.0-20.0 [facility] Comment on above: Performed By: #### L [id number] ####[facility] ([facility])[address] [address] 30on 09-23-2023 30 Normal [facility] ANTI-XA (HEPARIN LEVEL)on HEPARIN UNFRACTIONATED (U/ML) IN PPP BY CHROMOGENIC METHOD 0.30 IU/mL Normal 0.3-0.7 [facility] Comment on above: Result Comment: Wells roxaban and Apixaban will interfere with the anti Xa assay used to monitor UFH and LMWH. Performed By: #### L [id number] ####[facility] ([facility])[address] [place] [address] HEPARIN UNFRACTIONATED (U/ML) IN PPP BY CHROMOGENIC METHOD 0.38 IU/mL Normal 0.3-0.7 [facility] Comment on above: Result Comment: Wells roxaban and Apixaban will interfere with the anti Xa assay used to monitor UFH and LMWH. Performed By: #### L [id number] ####[facility] ([facility] [place] [address] HEPARIN UNFRACTIONATED (U/ML) IN PPP BY CHROMOGENIC METHOD 0.35 IU/mL Normal 0.3-0.7 [facility] Comment on above: Result Comment: Masha roxaban and Apixaban will interfere with the anti Xa assay used to monitor UFH and LMWH. Performed By: #### L [id number] ####[facility] ([facility])[address] [place] [address] HEPARIN UNFRACTIONATED (U/ML) IN PPP BY CHROMOGENIC METHOD 0.29 IU/mL Low 0.3-0.7 [facility] Comment on above: Result Comment: Masha roxaban and Apixaban will interfere with the anti Xa assay used to monitor UFH and LMWH. Performed By: #### L [id number] ####[facility] ([facility])[address] [place] [address] BASIC METABOLIC PANELon 12 Anion gap [Moles/Vol] 8 mmol/L Normal 7-20 [facility] Comment on above: Performed By: #### L [id number] ####[facility] ([facility])[address] [place] [address] Calcium [Mass/Vol] 7.9 mg/dL Low 8.6-10.3 [facility] Comment on above: Performed By: #### L [id number] ####[facility] ([facility])[address] [place] [address] Chloride [Moles/Vol] 104 mmol/L Normal 98-107 [facility] Comment on above: Performed By: #### L [id number] ####[facility] ([facility])[address] [place] [address] CO2 [Moles/Vol] 26 mmol/L Normal 21-31 [facility] Comment on above: Performed By: #### L [id number] ####[facility] ([facility])[address] [place] [address] Creatinine [Mass/Vol] 0.44 mg/dL Low 0.70-1.30 [facility] Comment on above: Performed By: #### L [id number] ####[facility] ([facility])[address] [place] [address] GLOMERULAR FILTRATION RATE ML/MIN/1.73 SQ M.PREDICTED 109.9 mL/min/1.73m*2 Normal >60.0 [facility] Comment on above: Result Comment: The [facility]???s estimated glomerular filtration rate (eGFR) will no longer include consideration of race in its calculation. The National Kidney Foundation???s eGFR Task Force developed new recommendations for the estimation of the glomerular filtration rate in the [place] They recommend immediate implementation of the new equation refit without the race variable in all laboratories because the calculation does not include race. In addition to not including race in the calculation and reporting, it included diversity in its development, and has acceptable performance characteristics and potential consequences that do not disproportionately affect any one group of individuals. Performed By: #### L [id number] ####[facility] ([facility])[address] [place] [address] Glucose [Mass/Vol] 110 mg/dL High 70-100 [facility] Comment on above: Performed By: #### L [id number] ####[facility] ([facility])[address] [place] [address] Potassium [Moles/Vol] 3.7 mmol/L Normal 3.5-5.1 [facility] Comment on above: Performed By: #### L [id number] ####[facility] ([facility])[address] [place] [address] Sodium [Moles/Vol] 134 mmol/L Low 136-145 [facility] Comment on above: Performed By: #### L [id number] ####[facility] ([facility])[address] [place] [address] Urea nitrogen [Mass/Vol] 16 mg/dL Normal 7-25 [facility] Comment on above: Performed By: #### L [id number] ####[facility] ([facility])[address] [place] [address] UREA NITROGEN/CREATININE (MASS RATIO) IN SER/PLAS 36.4 Normal [facility] Comment on above: Performed By: #### L [id number] ####[facility] ([facility])[address] [place] [address] CBC WITH AUTO DIFFERENTIALon 09-23-2023 Erythrocyte distribution width (RBC) [Ratio] 17.6 % High 11.5-15.0 [facility] Comment on above: Performed By: #### L [id number] ####[facility] ([facility])[address] [place] [address] ERYTHROCYTE MEAN CORPUSCULAR HEMOGLOBIN CONCENTRATION (G/DL) BY AUTOMATED 32.3 g/dL Normal 32.0-35.0 [facility] Comment on above: Performed By: #### L [id number] ####[facility] ([facility])[address] [place] [address] Hematocrit (Bld) [Volume fraction] 23.5 % Low 39.0-55.0 [facility] Comment on above: Performed By: #### L [id number] ####[facility] ([facility])[address] [place] [address] Hemoglobin (Bld) [Mass/Vol] 7.6 g/dL Low 13.0-17.0 [facility] Comment on above: Result Comment: Resu lts checked pt has wound vac after surgery on 09/22/23 Performed By: #### L [id number] ####[facility] ([facility])[address] [place] [address] IMMATURE PLATELET FRACTION % 2.3 % Normal 0.8-6.3 [facility] Comment on above: Performed By: #### L [id number] ####[facility] ([facility])[address] [place] [address] MCH (RBC) [Entitic mass] 27.7 pg Normal 27.0-33.0 [facility] Comment on above: Performed By: #### L [id number] ####[facility] ([facility])[address] [place] [address] MCV (RBC) [Entitic vol] 85.8 fL Normal 82.0-98.0 [facility] Comment on above: Performed By: #### L [id number] ####[facility] ([facility])[address] [place] [address] NRBC (PER 100 WBCS) BY AUTOMATED COUNT 0.0 % Normal 0 [facility] Comment on above: Performed By: #### L [id number] ####[facility] ([facility])[address] [place] [address] PLATELETS (10*3/UL) IN BLOOD AUTOMATED COUNT 71 10*3/uL Low 150-400 [facility] Comment on above: Result Comment: Last plt 109 1d Performed By: #### L [id number] ####[facility] ([facility])[address] [place] [address] RBC (Bld) [#/Vol] 2.74 10*6/uL Low 4.20-5.70 [facility] Comment on above: Performed By: #### L [id number] ####[facility] ([facility])[address] [place] [address] WBC (Bld) [#/Vol] 2.37 10*3/uL Low 4.00-10.60 [facility] Comment on above: Performed By: #### L [id number] ####[facility] ([facility])[address] [place], [place] [address] HEMOGLOBIN AND HEMATOCRIT, B LOODon 09-23-2023 Hematocrit (Bld) [Volume fraction] 26.5 % Low 39.0-55.0 [facility] Comment on above: Performed By: #### L [id number] ####[facility] ([facility])[address] [place], [place] [address] Hemoglobin (Bld) [Mass/Vol] 8.4 g/dL Low 13.0-17.0 [facility] Comment on above: Performed By: #### L [id number] ####[facility] ([facility])[address] [place] [address] Hematocrit (Bld) [Volume fraction] 24.0 % Low 39.0-55.0 [facility] Comment on above: Performed By: #### L [id number] ####[facility] ([facility])[address] [place] [address] Hemoglobin (Bld) [Mass/Vol] 7.7 g/dL Low 13.0-17.0 [facility] Comment on above: Performed By: #### L [id number] ####[facility] ([facility])[address] [place] [address] MAGNESIUMon 09-23-2023 Magnesium [Mass/Vol] 1.6 mg/dL Low 1.9-2.7 [facility] Comment on above: Performed By: #### L [id number] ####[facility] ([facility])[address] [place] [address] MANUAL DIFFERENTIALon 2022 BASOPHILS (10*3/UL) IN BLOOD BY CALCULATION 0.01 10*3/uL Normal 0.00-0.20 [facility] Comment on above: Performed By: #### L [id number] ####[facility] ([facility])[address] [place] [address] BASOPHILS/100 LEUKOCYTES IN BLOOD BY AUTOMATED COUNT 0.4 % Normal 0.0-1.0 [facility] Comment on above: Performed By: #### L [id number] ####[facility] ([facility])[address] [place] [address] EOSINOPHILS (10*3/UL) IN BLOOD BY CALCULATION 0.04 10*3/uL Normal 0.00-0.50 [facility] Comment on above: Performed By: #### L [id number] ####[facility] ([facility])[address] [place] [address] EOSINOPHILS/100 LEUKOCYTES IN BLOOD BY AUTOMATED COUNT 1.7 % Normal 0.0-6.0 [facility] Comment on above: Performed By: #### L [id number] ####[facility] ([facility])[address] [place] [address] IMMATURE GRANULOCYTES (10*3/UL) IN BLOOD BY CALCULATION 0.01 10*3/uL Normal 0.00-0.20 [facility] [facility] Comment on above: Performed By: #### L [id number] ####[facility] ([facility])[address] [place] [address] IMMATURE GRANULOCYTES/100 LEUKOCYTES IN BLOOD BY AUTOMATED COUNT 0.4 % Normal 0.0-1.0 [facility] Comment on above: Performed By: #### L [id number] ####[facility] ([facility])[address] [place] [address] LYMPHOCYTES (10*3/UL) IN BLOOD BY CALCULATION 0.36 10*3/uL Low 1.20-4.00 [facility] Comment on above: Performed By: #### L [id number] ####[facility] ([facility])[address] [place] [address] LYMPHOCYTES/100 LEUKOCYTES IN BLOOD BY AUTOMATED COUNT 15.2 % Low 20.0-45.0 [facility] Comment on above: Performed By: #### L [id number] ####[facility] ([facility])[address] [place] [address] MONOCYTES (10*3/UL) IN BLOOD BY CALCUATION 0.18 10*3/uL Normal 0.10-1.00 [facility] Comment on above: Performed By: #### L [id number] ####[facility] ([facility])[address] [place] [address] MONOCYTES/100 LEUKOCYTES IN BLOOD BY AUTOMATED COUNT 7.6 % Normal 5.0-12.0 [facility] Comment on above: Performed By: #### L [id number] ####[facility] ([facility])[address] [place] [address] NEUTROPHILS (10*3/UL) IN BLOOD BY CALCULATION 1.8 10*3/uL Normal 1.6-7.6 [facility] Comment on above: Performed By: #### L [id number] ####[facility] ([facility])[address] [place] [address] NEUTROPHILS/100 LEUKOCYTES IN BLOOD BY AUTOMATED COUNT 74.7 % High 40.0-72.0 [facility] Comment on above: Performed By: #### L [id number] ####[facility] ([facility])[address] [place] [address] PHOSPHORUSon 09-23-2023 Magnesium [Mass/Vol] 2.4 mg/dL Low 2.5-5.0 [facility] Comment on above: Performed By: #### L [id number] ####[facility] ([facility])[address] [place] [address] POCT GLUCOSE METER UNSOLICIT ED RESULTSon 09-23-2023 Glucose [Mass/Vol] 188 mg/dL High 70-105 [facility] Comment on above: Order Comment: Waive d Testing in the ED is performed under the ED CLIA certificate #[id number]. Result Comment: [email or web address] Performed By: #### L [id number] ####[facility] ([facility])[address] [place] [address] Glucose [Mass/Vol] 158 mg/dL High 70-105 [facility] Comment on above: Order Comment: Waive d Testing in the ED is performed under the ED CLIA certificate #[id number]. Result Comment: [email or web address] Performed By: #### L [id number] ####[facility] ([facility])[address] [place] [address] Glucose [Mass/Vol] 252 mg/dL High 70-105 [facility] Comment on above: Order Comment: Waive d Testing in the ED is performed under the ED CLIA certificate #[id number]. Result Comment: [email or web address] Performed By: #### L [id number] ####[facility] ([facility])[address] [place] [address] Glucose [Mass/Vol] 120 mg/dL High 70-105 [facility] Comment on above: Order Comment: Waive d Testing in the ED is performed under the ED CLIA certificate #[id number]. Result Comment: [email or web address] Performed By: #### L [id number] ####[facility] ([facility])[address] [place] [address] VANCOMYCIN, PEAKon 3 VANCOMYCIN (UG/ML) IN SER/PLAS - PEAK 23.7 ug/mL Normal 20.0-50.0 [facility] Comment on above: Performed By: #### L [id number] ####[facility] ([facility])[address] [place] [address] 30on 09-22-2023 30 Normal [facility] 30 Normal [facility] 30 Normal [facility] 30 Normal [facility] ANTI-XA (HEPARIN LEVEL)on HEPARIN UNFRACTIONATED (U/ML) IN PPP BY CHROMOGENIC METHOD 0.21 IU/mL Low 0.3-0.7 [facility] Comment on above: Order Comment: Check anti-Xa level every 6 hours while on heparin infusion, or per protocol. Result Comment: Wells roxaban and Apixaban will interfere with the anti Xa assay used to monitor UFH and LMWH. Performed By: #### L [id number] ####[facility] ([facility])[address] [place] [address] HEPARIN UNFRACTIONATED (U/ML) IN PPP BY CHROMOGENIC METHOD 0.25 IU/mL Low 0.3-0.7 [facility] Comment on above: Order Comment: Check anti-Xa level every 6 hours while on heparin infusion, or per protocol. Result Comment: Wells roxaban and Apixaban will interfere with the anti Xa assay used to monitor UFH and LMWH. Performed By: #### L [id number] ####[facility] ([facility])[address] [place] [address] HEPARIN UNFRACTIONATED (U/ML) IN PPP BY CHROMOGENIC METHOD 0.22 IU/mL Low 0.3-0.7 [facility] Comment on above: Result Comment: Wells roxaban and Apixaban will interfere with the anti Xa assay used to monitor UFH and LMWH. Performed By: #### L [id number] ####[facility] ([facility])[address] [place] [address] HEPARIN UNFRACTIONATED (U/ML) IN PPP BY CHROMOGENIC METHOD 0.22 IU/mL Low 0.3-0.7 [facility] Comment on above: Order Comment: Check anti-Xa level every 6 hours while on heparin infusion, or per protocol. Result Comment: Masha roxaban and Apixaban will interfere with the anti Xa assay used to monitor UFH and LMWH. Performed By: #### L [id number] ####[facility] ([facility] [place] [address] HEPARIN UNFRACTIONATED (U/ML) IN PPP BY CHROMOGENIC METHOD 0.18 IU/mL Low 0.3-0.7 [facility] Comment on above: Order Comment: Check anti-Xa level every 6 hours while on heparin infusion, or per protocol. Result Comment: Wells roxaban and Apixaban will interfere with the anti Xa assay used to monitor UFH and LMWH. Performed By: #### L [id number] ####[facility] ([facility])[address] [place] [address] BASIC METABOLIC PANELon 09-09 Anion gap [Moles/Vol] 8 mmol/L Normal 7-20 [facility] Comment on above: Performed By: #### L [id number] ####[facility] ([facility])[address] [place] [address] Calcium [Mass/Vol] 8.0 mg/dL Low 8.6-10.3 [facility] Comment on above: Performed By: #### L [id number] ####[facility] ([facility])[address] [place] [address] Chloride [Moles/Vol] 102 mmol/L Normal 98-107 [facility] Comment on above: Performed By: #### L [id number] ####[facility] ([facility])[address] [place] [address] CO2 [Moles/Vol] 26 mmol/L Normal 21-31 [facility] Comment on above: Performed By: #### L [id number] ####[facility] ([facility])[address] [place] [address] Creatinine [Mass/Vol] 0.41 mg/dL Low 0.70-1.[address] [facility] Comment on above: Performed By: #### L [id number] ####[facility] ([facility])[address] [place] [address] GLOMERULAR FILTRATION RATE ML/MIN/1.73 SQ M.PREDICTED 112.2 mL/min/1.73m*2 Normal >60.0 [facility] Comment on above: Result Comment: The [facility]???s estimated glomerular filtration rate (eGFR) will no longer include consideration of race in its calculation. The National Kidney Foundation???s eGFR Task Force developed new recommendations for the estimation of the glomerular filtration rate in the [place] They recommend immediate implementation of the new equation refit without the race variable in all laboratories because the calculation does not include race. In addition to not including race in the calculation and reporting, it included diversity in its development, and has acceptable performance characteristics and potential consequences that do not disproportionately affect any one group of individuals. Performed By: #### L [id number] ####[facility] ([facility])[address] [place] [address] Glucose [Mass/Vol] 110 mg/dL High 70-100 [facility] Comment on above: Performed By: #### L [id number] ####[facility] ([facility])[address] [place] [address] Potassium [Moles/Vol] 3.7 mmol/L Normal 3.5-5.[address] [facility] Comment on above: Performed By: #### L [id number] ####[facility] ([facility])[address] [place] [address] Sodium [Moles/Vol] 132 mmol/L Low 136-145 [facility] Comment on above: Performed By: #### L [id number] ####[facility] ([facility])[address] [place] [address] Urea nitrogen [Mass/Vol] 16 mg/dL Normal 7-25 [facility] Comment on above: Performed By: #### L [id number] ####[facility] ([facility] [place] [address] UREA NITROGEN/CREATININE (MASS RATIO) IN SER/PLAS 39.0 Normal [facility] Comment on above: Performed By: #### L [id number] ####[facility] ([facility] [place] [address] CBC WITH AUTO DIFFERENTIALon 09-22-2023 Basophils (Bld) [#/Vol] 0.00 10*3/uL Normal 0.00-0.20 [facility] Comment on above: Performed By: #### L [id number] ####[facility] ([facility])[address] [place] [address] Basophils/100 WBC (Bld) 0.0 % Normal 0.0-1.0 [facility] Comment on above: Performed By: #### L [id number] ####[facility] ([facility])[address] [place] [address] Eosinophils (Bld) [#/Vol] 0.03 10*3/uL Normal 0.00-0.50 [facility] Comment on above: Performed By: #### L [id number] ####[facility] ([facility])[address] [place] [address] Eosinophils/100 WBC (Bld) 0.7 % Normal 0.0-6.0 [facility] Comment on above: Performed By: #### L [id number] ####[facility] ([facility])[address] [place] [address] Erythrocyte distribution width (RBC) [Ratio] 17.6 % High 11.5-15.0 [facility] Comment on above: Performed By: #### L [id number] ####[facility] ([facility])[address] [place] [address] ERYTHROCYTE MEAN CORPUSCULAR HEMOGLOBIN CONCENTRATION (G/DL) BY AUTOMATED 32.2 g/dL Normal 32.0-35.0 [facility] Comment on above: Performed By: #### L [id number] ####[facility] ([facility])[address] [place] [address] Hematocrit (Bld) [Volume fraction] 27.6 % Low 39.0-55.0 [facility] Comment on above: Performed By: #### L [id number] ####[facility] ([facility] [place] [address] Hemoglobin (Bld) [Mass/Vol] 8.9 g/dL Low 13.0-17.0 [facility] Comment on above: Performed By: #### L [id number] ####[facility] ([facility])[address] [place] [address] Immature granulocytes (Bld) [#/Vol] 0.02 10*3/uL Normal 0.00-0.20 [facility] Comment on above: Performed By: #### L [id number] ####[facility] ([facility])[address] [place] [address] Immature granulocytes/100 WBC (Bld) 0.5 % Normal 0.0-1.0 [facility] Comment on above: Performed By: #### L [id number] ####[facility] ([facility])[address] [place] [address] Lymphocytes (Bld) [#/Vol] 0.45 10*3/uL Low 1.20-4.00 [facility] Comment on above: Performed By: #### L [id number] ####[facility] ([facility])[address] [place] [address] Lymphocytes/100 WBC (Bld) 10.6 % Low 20.0-45.0 [facility] Comment on above: Performed By: #### L [id number] ####[facility] ([facility])[address] [place] [address] MCH (RBC) [Entitic mass] 27.5 pg Normal 27.0-33.0 [facility] Comment on above: Performed By: #### L [id number] ####[facility] ([facility] [place] [address] MCV (RBC) [Entitic vol] 85.2 fL Normal 82.0-98.0 [facility] Comment on above: Performed By: #### L [id number] ####[facility] ([facility] [place] [address] Monocytes (Bld) [#/Vol] 0.45 10*3/uL Normal 0.10-1.00 [facility] Comment on above: Performed By: #### L [id number] ####[facility] ([facility])[address] [place] [address] Monocytes/100 WBC (Bld) 10.6 % Normal 5.0-12.0 [facility] Comment on above: Performed By: #### L [id number] ####[facility] ([facility])[address] [place] [address] Neutrophils (Bld) [#/Vol] 3.28 10*3/uL Normal 1.60-7.60 [facility] Comment on above: Performed By: #### L [id number] ####[facility] ([facility])[address] [place] [address] Neutrophils/100 WBC (Bld) 77.6 % High 40.0-72.0 [facility] Comment on above: Performed By: #### L [id number] ####[facility] ([facility] [place] [address] NRBC (PER 100 WBCS) BY AUTOMATED COUNT 0.0 % Normal 0 [facility] Comment on above: Performed By: #### L [id number] ####[facility] ([facility] [place] [address] PLATELETS (10*3/UL) IN BLOOD AUTOMATED COUNT 109 10*3/uL Low 150-400 [facility] Comment on above: Performed By: #### L [id number] ####[facility] ([facility] [place] [address] RBC (Bld) [#/Vol] 3.24 10*6/uL Low 4.20-5.70 [facility] Comment on above: Performed By: #### L [id number] ####[facility] ([facility])[address] [place] [address] WBC (Bld) [#/Vol] 4.23 10*3/uL Normal 4.00-10.60 [facility] Comment on above: Performed By: #### L [id number] ####[facility] ([facility])[address] [place] [address] HEMOGLOBIN AND HEMATOCRIT, B LOODon 09-22-2023 Hematocrit (Bld) [Volume fraction] 30.1 % Low 39.0-55.0 [facility] Comment on above: Performed By: #### L [id number] ####[facility] ([facility])[address] [place] [address] Hemoglobin (Bld) [Mass/Vol] 9.8 g/dL Low 13.0-17.0 [facility] Comment on above: Performed By: #### L [id number] ####[facility] ([facility])[address] [place] [address] MAGNESIUMon 09-22-2023 Magnesium [Mass/Vol] 1.7 mg/dL Low 1.9-2.7 [facility] Comment on above: Performed By: #### L [id number] ####[facility] ([facility])[address] [place] [address] PHOSPHORUSon 09-22-2023 Magnesium [Mass/Vol] 2.0 mg/dL Low 2.5-5.0 [facility] Comment on above: Performed By: #### L [id number] ####[facility] ([facility])[address] [place] [address] POCT GLUCOSE METER UNSOLICIT ED RESULTSon 09-22-2023 Glucose [Mass/Vol] 102 mg/dL Normal 70-105 [facility] Comment on above: Order Comment: Waive d Testing in the ED is performed under the ED CLIA certificate #[id number]. Result Comment: [email or web address] Performed By: #### L [id number] ####[facility] ([facility])[address] [place] [address] Glucose [Mass/Vol] 212 mg/dL High 70-105 [facility] Comment on above: Order Comment: Waive d Testing in the ED is performed under the ED CLIA certificate #[id number]. Result Comment: [email or web address] Performed By: #### L [id number] ####[facility] ([facility])[address] [place] [address] Glucose [Mass/Vol] 177 mg/dL High 70-105 [facility] Comment on above: Order Comment: Waive d Testing in the ED is performed under the ED CLIA certificate #[id number]. Result Comment: [email or web address] Performed By: #### L [id number] ####[facility] ([facility])[address] [place] [address] VANCOMYCIN, TROUGHon 023 VANCOMYCIN (UG/ML) IN SER/PLAS - TROUGH 6.1 ug/mL Normal 5.0-20.0 [facility] Comment on above: Order Comment: Les e collect the trough at least one hour before the 0800 dose due Performed By: #### L [id number] ####[facility] ([facility])[address] [place] [address] 30on 09-21-2023 30 Normal [facility] 30 Normal [facility] ANTI-XA (HEPARIN LEVEL)on HEPARIN UNFRACTIONATED (U/ML) IN PPP BY CHROMOGENIC METHOD 0.14 IU/mL Invalid Interpretation Code 0.3-0.7 [facility] Comment on above: Order Comment: Check anti-Xa level every 6 hours while on heparin infusion, or per protocol. Result Comment: Wells roxaban and Apixaban will interfere with the anti Xa assay used to monitor UFH and LMWH. Performed By: #### L [id number] ####[facility] ([facility])[address] [place] [address] HEPARIN UNFRACTIONATED (U/ML) IN PPP BY CHROMOGENIC METHOD <0.10 Invalid Interpretation Code 0.3-0.7 [facility] Comment on above: Result Comment: Wells roxaban and Apixaban will interfere with the anti Xa assay used to monitor UFH and LMWH. Performed By: #### L [id number] ####[facility] ([facility])[address] [place] [address] APTTon 09-21-2023 ACTIVATED PARTIAL THROMBOPLASTIN TIME IN PPP BY COAGULATION ASSAY 35.8 Seconds High 25.0-35.0 [facility] Comment on above: Order Comment: Basel ine aPTT before initiating heparin infusion. Result Comment: Clin ical significance of the APTT is questionable in the presence of heparin. Performed By: #### L [id number] ####[facility] ([facility])[address] [place] [address] BASIC METABOLIC PANELon 09-09 Anion gap [Moles/Vol] 12 mmol/L Normal 7-20 [facility] Comment on above: Performed By: #### L [id number] ####[facility] ([facility])[address] [place] [address] Calcium [Mass/Vol] 7.9 mg/dL Low 8.6-10.3 [facility] Comment on above: Performed By: #### L [id number] ####[facility] ([facility])[address] [place] [address] Chloride [Moles/Vol] 100 mmol/L Normal 98-107 [facility] Comment on above: Performed By: #### L [id number] ####[facility] ([facility])[address] [place] [address] CO2 [Moles/Vol] 23 mmol/L Normal 21-31 [facility] Comment on above: Performed By: #### L [id number] ####[facility] ([facility])[address] [place] [address] Creatinine [Mass/Vol] 0.61 mg/dL Low 0.70-1.30 [facility] Comment on above: Performed By: #### L [id number] ####[facility] ([facility])[address] [address] GLOMERULAR FILTRATION RATE ML/MIN/1.73 SQ M.PREDICTED 99.5 mL/min/1.73m*2 Normal >60.0 [facility] Comment on above: Result Comment: [facility]???s estimated glomerular filtration rate (eGFR) will no longer include consideration of race in its calculation. The National Kidney Foundation???s eGFR Task Force developed new recommendations for the estimation of the glomerular filtration rate in the [place] They recommend immediate implementation of the new equation refit without the race variable in all laboratories because the calculation does not include race. In addition to not including race in the calculation and reporting, it included diversity in its development, and has acceptable performance characteristics and potential consequences that do not disproportionately affect any one group of individuals. Performed By: #### L [id number] ####[facility] ([facility])[address] [place] [address] Glucose [Mass/Vol] 246 mg/dL High 70-100 [facility] Comment on above: Performed By: #### L [id number] ####[facility] ([facility])[address] [place] [address] Potassium [Moles/Vol] 3.5 mmol/L Normal 3.5-5.1 [facility] Comment on above: Performed By: #### L [id number] ####[facility] ([facility])[address] [place] [address] Sodium [Moles/Vol] 131 mmol/L Low 136-145 [facility] Comment on above: Performed By: #### L [id number] ####[facility] ([facility])[address] [place] [address] Urea nitrogen [Mass/Vol] 15 mg/dL Normal 7-25 [facility] Comment on above: Performed By: #### L [id number] ####[facility] ([facility])[address] [place] [address] UREA NITROGEN/CREATININE (MASS RATIO) IN SER/PLAS 24.6 Normal [facility] Comment on above: Performed By: #### L [id number] ####[facility] ([facility])[address] [place] [address] Anion gap [Moles/Vol] 8 mmol/L Normal 7-20 [facility] Comment on above: Performed By: #### L [id number] ####[facility] ([facility])[address] [place] [address] Calcium [Mass/Vol] 8.5 mg/dL Low 8.6-10.3 [facility] Comment on above: Performed By: #### L [id number] ####[facility] ([facility])[address] [place] [address] Chloride [Moles/Vol] 101 mmol/L Normal 98-107 [facility] Comment on above: Performed By: #### L [id number] ####[facility] ([facility])[address] [place] [address] CO2 [Moles/Vol] 28 mmol/L Normal 21-31 [facility] Comment on above: Performed By: #### L [id number] ####[facility] ([facility])[address] [place] [address] Creatinine [Mass/Vol] 0.49 mg/dL Low 0.70-1.30 [facility] Comment on above: Performed By: #### L [id number] ####[facility] ([facility])[address] [place] [address] GLOMERULAR FILTRATION RATE ML/MIN/1.73 SQ M.PREDICTED 106.4 mL/min/1.73m*2 Normal >60.0 [facility] Comment on above: Result Comment: [facility]???s estimated glomerular filtration rate (eGFR) will no longer include consideration of race in its calculation. The National Kidney Foundation???s eGFR Task Force developed new recommendations for the estimation of the glomerular filtration rate in the [place] They recommend immediate implementation of the new equation refit without the race variable in all laboratories because the calculation does not include race. In addition to not including race in the calculation and reporting, it included diversity in its development, and has acceptable performance characteristics and potential consequences that do not disproportionately affect any one group of individuals. Performed By: #### L [id number] ####[facility] ([facility])[address] [place] [address] Glucose [Mass/Vol] 113 mg/dL High 70-100 [facility] Comment on above: Performed By: #### L [id number] ####[facility] ([facility])[address] [place] [place] [address] Potassium [Moles/Vol] 3.9 mmol/L Normal 3.5-5.[address] [facility] Comment on above: Performed By: #### L [id number] ####[facility] ([facility])[address] [place] [place] [address] Sodium [Moles/Vol] 133 mmol/L Low 136-145 [facility] Comment on above: Performed By: #### L [id number] ####[facility] [facility] [place] [address] Urea nitrogen [Mass/Vol] 13 mg/dL Normal 7-25 [facility] Comment on above: Performed By: #### L [id number] ####[facility] ([facility])[address] [place] [place] [address] UREA NITROGEN/CREATININE (MASS RATIO) IN SER/PLAS 26.5 Normal [facility] Comment on above: Performed By: #### L [id number] ####[facility] ([facility])[address] [place] [address] CBC WITH AUTO DIFFERENTIALon 09-21-2023 Basophils (Bld) [#/Vol] 0.01 10*3/uL Normal 0.00-0.20 [facility] Comment on above: Performed By: #### L [id number] ####[facility] ([facility])[address] [place] [address] Basophils/100 WBC (Bld) 0.2 % Normal 0.0-1.0 [facility] Comment on above: Performed By: #### L [id number] ####[facility] ([facility])[address] [place] [address] Eosinophils (Bld) [#/Vol] 0.01 10*3/uL Normal 0.00-0.50 [facility] Comment on above: Performed By: #### L [id number] ####[facility] ([facility])[address] [place] [address] Eosinophils/100 WBC (Bld) 0.2 % Normal 0.0-6.0 [facility] Comment on above: Performed By: #### L [id number] ####[facility] ([facility])[address] [place] [address] Erythrocyte distribution width (RBC) [Ratio] 18.0 % High 11.5-15.0 [facility] Comment on above: Performed By: #### L [id number] ####[facility] ([facility])[address] [place] [address] ERYTHROCYTE MEAN CORPUSCULAR HEMOGLOBIN CONCENTRATION (G/DL) BY AUTOMATED 31.8 g/dL Low 32.0-35.0 [facility] Comment on above: Performed By: #### L [id number] ####[facility] ([facility])[address] [place] [address] Hematocrit (Bld) [Volume fraction] 31.8 % Low 39.0-55.0 [facility] Comment on above: Performed By: #### L [id number] ####[facility] ([facility])[address] [place] [address] Hemoglobin (Bld) [Mass/Vol] 10.1 g/dL Low 13.0-17.0 [facility] Comment on above: Performed By: #### L [id number] ####[facility] ([facility])[address] [place] [address] Immature granulocytes (Bld) [#/Vol] 0.03 10*3/uL Normal 0.00-0.20 [facility] Comment on above: Performed By: #### L [id number] ####[facility] [place] [address] Immature granulocytes/100 WBC (Bld) 0.5 % Normal 0.0-1.0 [facility] Comment on above: Performed By: #### L [id number] ####[facility] ([facility] [place] [address] Lymphocytes (Bld) [#/Vol] 0.43 10*3/uL Low 1.20-4.00 [facility] Comment on above: Performed By: #### L [id number] ####[facility] ([facility])[address] [place] [address] Lymphocytes/100 WBC (Bld) 7.4 % Low 20.0-45.0 [facility] Comment on above: Performed By: #### L [id number] ####[facility] ([facility] [place] [address] MCH (RBC) [Entitic mass] 26.9 pg Low 27.0-33.0 [facility] Comment on above: Performed By: #### L [id number] ####[facility] ([facility])[address] [place] [address] MCV (RBC) [Entitic vol] 84.8 fL Normal 82.0-98.0 [facility] Comment on above: Performed By: #### L [id number] ####[facility] ([facility])[address] [place] [address] Monocytes (Bld) [#/Vol] 0.56 10*3/uL Normal 0.10-1.00 [facility] Comment on above: Performed By: #### L [id number] ####[facility] ([facility])[address] [place] [address] Monocytes/100 WBC (Bld) 9.6 % Normal 5.0-12.0 [facility] Comment on above: Performed By: #### L [id number] ####[facility] [place] [address] Neutrophils (Bld) [#/Vol] 4.81 10*3/uL Normal 1.60-7.60 [facility] Comment on above: Performed By: #### L [id number] ####[facility] ([facility])[address] [address] Neutrophils/100 WBC (Bld) 82.1 % High 40.0-72.0 [facility] Comment on above: Performed By: #### L [id number] ####[facility] ([facility])[address] [place] [address] NRBC (PER 100 WBCS) BY AUTOMATED COUNT 0.0 % Normal 0 [facility] Comment on above: Performed By: #### L [id number] ####[facility] ([facility])[address] [place] [address] PLATELETS (10*3/UL) IN BLOOD AUTOMATED COUNT 122 10*3/uL Low 150-400 [facility] Comment on above: Performed By: #### L [id number] ####[facility] ([facility])[address] [place] [address] RBC (Bld) [#/Vol] 3.75 10*6/uL Low 4.20-5.70 [facility] Comment on above: Performed By: #### L [id number] ####[facility] ([facility])[address] [address] WBC (Bld) [#/Vol] 5.85 10*3/uL Normal 4.00-10.60 [facility] Comment on above: Performed By: #### L [id number] ####[facility] ([facility])[address] [address] CONSULTon 09-21-2023 CONSULT Normal [facility] HEMOGLOBIN AND HEMATOCRIT, B LOODon 09-21-2023 Hematocrit (Bld) [Volume fraction] 30.8 % Low 39.0-55.0 [facility] Comment on above: Performed By: #### L [id number] ####[facility] ([facility])[address] [place] [address] Hemoglobin (Bld) [Mass/Vol] 10.2 g/dL Low 13.0-17.0 [facility] Comment on above: Performed By: #### L [id number] ####[facility] ([facility])[address] [place] [address] MAGNESIUMon 09-21-2023 Magnesium [Mass/Vol] 2.0 mg/dL Normal 1.9-2.7 [facility] Comment on above: Performed By: #### L [id number] ####[facility] ([facility])[address] [place] [address] Magnesium [Mass/Vol] 1.5 mg/dL Low 1.9-2.7 [facility] Comment on above: Performed By: #### L [id number] ####[facility] ([facility])[address] [place] [address] PHOSPHORUSon 09-21-2023 Magnesium [Mass/Vol] 3.0 mg/dL Normal 2.5-5.0 [facility] Comment on above: Performed By: #### L [id number] ####[facility] ([facility])[address] [place] [address] PLATELET COUNTon 09-21-2023 PLATELETS (10*3/UL) IN BLOOD AUTOMATED COUNT 144 10*3/uL Low 150-400 [facility] Comment on above: Performed By: #### L [id number] ####[facility] ([facility])[address] [place] [address] POCT GLUCOSE METER UNSOLICIT ED RESULTSon 09-21-2023 Glucose [Mass/Vol] 154 mg/dL High 70-105 [facility] Comment on above: Order Comment: Waive d Testing in the ED is performed under the ED CLIA certificate #[id number]. Result Comment: [email or web address] Performed By: #### L [id number] ####[facility] ([facility])[address] [place] [address] Glucose [Mass/Vol] 217 mg/dL High 70-105 [facility] Comment on above: Order Comment: Waive d Testing in the ED is performed under the ED CLIA certificate #[id number]. Result Comment: [email or web address] Performed By: #### L [id number] ####[facility] ([facility])[address] [place] [address] Glucose [Mass/Vol] 105 mg/dL Normal 70-105 [facility] Comment on above: Order Comment: Waive d Testing in the ED is performed under the ED CLIA certificate #[id number]. Result Comment: [email or web address] Performed By: #### L [id number] ####[facility] ([facility])[address] [place] [address] Glucose [Mass/Vol] 108 mg/dL High 70-105 [facility] Comment on above: Order Comment: Waive d Testing in the ED is performed under the ED CLIA certificate #[id number]. Result Comment: [email or web address] Performed By: #### L [id number] ####[facility] ([facility])[address] [place] [address] VANCOMYCIN, PEAKon 3 VANCOMYCIN (UG/ML) IN SER/PLAS - PEAK 12.1 ug/mL Low 20.0-50.0 [facility] Comment on above: Order Comment: Les meléndez collect the peak at least 1 hour after the infusion has been completed Performed By: #### L [id number] ####[facility] ([facility])[address] [place] [address] [id number] 09-20-2023 [id number] Normal [facility] 30on 09-20-2023 30 The patient is Moder ately Stable - Low risk of patient condition declining or worsening The patient's goals for the shift include comfort, safety The clinical goals for the shift include comfort,safety Normal [facility] ANESon 09-20-2023 ANES Normal [facility] BASIC METABOLIC PANELon 12- Anion gap [Moles/Vol] 9 mmol/L Normal 7-20 [facility] Comment on above: Performed By: #### L [id number] ####[facility] ([facility] [place] [address] Calcium [Mass/Vol] 8.4 mg/dL Low 8.6-10.3 [facility] Comment on above: Performed By: #### L [id number] ####[facility] ([facility] [place] [address] Chloride [Moles/Vol] 100 mmol/L Normal 98-107 [facility] Comment on above: Performed By: #### L [id number] ####[facility] ([facility])[address] [place] [address] CO2 [Moles/Vol] 27 mmol/L Normal 21-31 [facility] Comment on above: Performed By: #### L [id number] ####[facility] ([facility] [place] [address] Creatinine [Mass/Vol] 0.51 mg/dL Low 0.70-1.30 [facility] Comment on above: Performed By: #### L [id number] ####[facility] ([facility])[address] [place] [address] GLOMERULAR FILTRATION RATE ML/MIN/1.73 SQ M.PREDICTED 105.1 mL/min/1.73m*2 Normal >60.0 [facility] Comment on above: Result Comment: The [facility]???s estimated glomerular filtration rate (eGFR) will no longer include consideration of race in its calculation. The National Kidney Foundation???s eGFR Task Force developed new recommendations for the estimation of the glomerular filtration rate in the [place] They recommend immediate implementation of the new equation refit without the race variable in all laboratories because the calculation does not include race. In addition to not including race in the calculation and reporting, it included diversity in its development, and has acceptable performance characteristics and potential consequences that do not disproportionately affect any one group of individuals. Performed By: #### L [id number] ####[facility] ([facility])[address] [place] [address] Glucose [Mass/Vol] 117 mg/dL High 70-100 [facility] Comment on above: Performed By: #### L [id number] ####[facility] ([facility])[address] [place] [address] Potassium [Moles/Vol] 3.3 mmol/L Low 3.5-5.[address] [facility] Comment on above: Performed By: #### L [id number] ####[facility] ([facility])[address] [place] [address] Sodium [Moles/Vol] 133 mmol/L Low 136-145 [facility] Comment on above: Performed By: #### L [id number] ####[facility] ([facility])[address] [place] [address] Urea nitrogen [Mass/Vol] 14 mg/dL Normal 7-25 [facility] Comment on above: Performed By: #### L [id number] ####[facility] ([facility])[address] [place] [address] UREA NITROGEN/CREATININE (MASS RATIO) IN SER/PLAS 27.5 Normal [facility] Comment on above: Performed By: #### L [id number] ####[facility] ([facility])[address] [place] [address] Anion gap [Moles/Vol] 11 mmol/L Normal 7-20 [facility] Comment on above: Performed By: #### L [id number] ####[facility] ([facility])[address] [place] [address] Calcium [Mass/Vol] 9.2 mg/dL Normal 8.6-10.3 [facility] Comment on above: Performed By: #### L [id number] ####[facility] ([facility])[address] [place] [address] Chloride [Moles/Vol] 102 mmol/L Normal 98-107 [facility] Comment on above: Performed By: #### L [id number] ####[facility] ([facility])[address] [place] [address] CO2 [Moles/Vol] 25 mmol/L Normal 21-31 [facility] Comment on above: Performed By: #### L [id number] ####[facility] ([facility] [place] [address] Creatinine [Mass/Vol] 0.53 mg/dL Low 0.70-1.30 [facility] Comment on above: Performed By: #### L [id number] ####[facility] ([facility])[address] [place] [address] GLOMERULAR FILTRATION RATE ML/MIN/1.73 SQ M.PREDICTED 103.9 mL/min/1.73m*2 Normal >60.0 [facility] Comment on above: Result Comment: The [facility]???s estimated glomerular filtration rate (eGFR) will no longer include consideration of race in its calculation. The National Kidney Foundation???s eGFR Task Force developed new recommendations for the estimation of the glomerular filtration rate in the [place] They recommend immediate implementation of the new equation refit without the race variable in all laboratories because the calculation does not include race. In addition to not including race in the calculation and reporting, it included diversity in its development, and has acceptable performance characteristics and potential consequences that do not disproportionately affect any one group of individuals. Performed By: #### L [id number] ####[facility] ([facility])[address] [place] [address] Glucose [Mass/Vol] 93 mg/dL Normal 70-100 [facility] Comment on above: Performed By: #### L [id number] ####[facility] ([facility])[address] [place] [address] Potassium [Moles/Vol] 3.7 mmol/L Normal 3.5-5.1 [facility] Comment on above: Performed By: #### L [id number] ####[facility] ([facility] [place] [address] Sodium [Moles/Vol] 134 mmol/L Low 136-145 [facility] Comment on above: Performed By: #### L [id number] ####[facility] ([facility] [place] [address] Urea nitrogen [Mass/Vol] 18 mg/dL Normal 7-25 [facility] Comment on above: Performed By: #### L [id number] ####[facility] ([facility] [place] [address] UREA NITROGEN/CREATININE (MASS RATIO) IN SER/PLAS 34.0 Normal [facility] Comment on above: Performed By: #### L [id number] ####[facility] ([facility])[address] [place] [address] CBCon 09-20-2023 Erythrocyte distribution width (RBC) [Ratio] 18.0 % High 11.5-15.0 [facility] Comment on above: Performed By: #### L [id number] ####[facility] ([facility])[address] [place] [address] ERYTHROCYTE MEAN CORPUSCULAR HEMOGLOBIN CONCENTRATION (G/DL) BY AUTOMATED 31.9 g/dL Low 32.0-35.0 [facility] Comment on above: Performed By: #### L [id number] ####[facility] ([facility])[address] [place] [address] Hematocrit (Bld) [Volume fraction] 33.5 % Low 39.0-55.0 [facility] Comment on above: Performed By: #### L [id number] ####[facility] ([facility] [place] [address] Hemoglobin (Bld) [Mass/Vol] 10.7 g/dL Low 13.0-17.0 [facility] Comment on above: Performed By: #### L [id number] ####[facility] ([facility] [place] [address] MCH (RBC) [Entitic mass] 27.1 pg Normal 27.0-33.0 [facility] Comment on above: Performed By: #### L [id number] ####[facility] ([facility])[address] [place] [address] MCV (RBC) [Entitic vol] 84.8 fL Normal 82.0-98.0 [facility] Comment on above: Performed By: #### L [id number] ####[facility] ([facility] [place] [address] PLATELETS (10*3/UL) IN BLOOD AUTOMATED COUNT 142 10*3/uL Low 150-400 [facility] Comment on above: Performed By: #### L [id number] ####[facility] ([facility])[address] [address] RBC (Bld) [#/Vol] 3.95 10*6/uL Low 4.20-5.70 [facility] Comment on above: Performed By: #### L [id number] ####[facility] ([facility] [place] [address] WBC (Bld) [#/Vol] 8.35 10*3/uL Normal 4.00-10.60 [facility] Comment on above: Performed By: #### L [id number] ####[facility] ([facility] [place] [address] CBC WITH AUTO DIFFERENTIALon 09-20-2023 Basophils (Bld) [#/Vol] 0.00 10*3/uL Normal 0.00-0.20 [facility] Comment on above: Performed By: #### L [id number] ####[facility] ([facility])[address] [place] [address] Basophils/100 WBC (Bld) 0.0 % Normal 0.0-1.0 [facility] Comment on above: Performed By: #### L [id number] ####[facility] ([facility])[address] [place] [address] Eosinophils (Bld) [#/Vol] 0.00 10*3/uL Normal 0.00-0.50 [facility] Comment on above: Performed By: #### L [id number] ####[facility] ([facility])[address] [place] [address] Eosinophils/100 WBC (Bld) 0.0 % Normal 0.0-6.0 [facility] Comment on above: Performed By: #### L [id number] ####[facility] ([facility] [place] [address] Erythrocyte distribution width (RBC) [Ratio] 17.4 % High 11.5-15.0 [facility] Comment on above: Performed By: #### L [id number] ####[facility] ([facility])[address] [place] [address] ERYTHROCYTE MEAN CORPUSCULAR HEMOGLOBIN CONCENTRATION (G/DL) BY AUTOMATED 32.1 g/dL Normal 32.0-35.0 [facility] Comment on above: Performed By: #### L [id number] ####[facility] ([facility])[address] [place] [address] Hematocrit (Bld) [Volume fraction] 36.5 % Low 39.0-55.0 [facility] Comment on above: Performed By: #### L [id number] ####[facility] ([facility])[address] [place] [address] Hemoglobin (Bld) [Mass/Vol] 11.7 g/dL Low 13.0-17.0 [facility] Comment on above: Performed By: #### L [id number] ####[facility] ([facility])[address] [place] [address] Immature granulocytes (Bld) [#/Vol] 0.03 10*3/uL Normal 0.00-0.20 [facility] Comment on above: Performed By: #### L [id number] ####[facility] ([facility])[address] [place] [address] Immature granulocytes/100 WBC (Bld) 0.4 % Normal 0.0-1.0 [facility] Comment on above: Performed By: #### L [id number] ####[facility] ([facility])[address] [place] [address] Lymphocytes (Bld) [#/Vol] 0.37 10*3/uL Low 1.20-4.00 [facility] Comment on above: Performed By: #### L [id number] ####[facility] ([facility])[address] [place] [address] Lymphocytes/100 WBC (Bld) 4.9 % Low 20.0-45.0 [facility] Comment on above: Performed By: #### L [id number] ####[facility] ([facility])[address] [place] [address] MCH (RBC) [Entitic mass] 27.4 pg Normal 27.0-33.0 [facility] Comment on above: Performed By: #### L [id number] ####[facility] ([facility])[address] [place] [address] MCV (RBC) [Entitic vol] 85.5 fL Normal 82.0-98.0 [facility] Comment on above: Performed By: #### L [id number] ####[facility] ([facility])[address] [place] [address] Monocytes (Bld) [#/Vol] 0.48 10*3/uL Normal 0.10-1.00 [facility] Comment on above: Performed By: #### L [id number] ####[facility] ([facility])[address] [place] [address] Monocytes/100 WBC (Bld) 6.3 % Normal 5.0-12.0 [facility] Comment on above: Performed By: #### L [id number] ####[facility] ([facility])[address] [place] [address] Neutrophils (Bld) [#/Vol] 6.73 10*3/uL Normal 1.60-7.60 [facility] Comment on above: Performed By: #### L [id number] ####[facility] ([facility])[address] [place] [address] Neutrophils/100 WBC (Bld) 88.4 % High 40.0-72.0 [facility] Comment on above: Performed By: #### L [id number] ####[facility] ([facility])[address] [address] NRBC (PER 100 WBCS) BY AUTOMATED COUNT 0.0 % Normal 0 [facility] Comment on above: Performed By: #### L [id number] ####[facility] ([facility])[address] [address] PLATELETS (10*3/UL) IN BLOOD AUTOMATED COUNT 122 10*3/uL Low 150-400 [facility] Comment on above: Performed By: #### L [id number] ####[facility] ([facility])[address] [address] RBC (Bld) [#/Vol] 4.27 10*6/uL Normal 4.20-5.70 [facility] Comment on above: Performed By: #### L [id number] ####[facility] ([facility])[address] [address] WBC (Bld) [#/Vol] 7.61 10*3/uL Normal 4.00-10.60 [facility] Comment on above: Performed By: #### L [id number] ####[facility] ([facility])[address] [address] CONSULTon 09-20-2023 CONSULT Normal [facility] CONSULT Normal [facility] DEVICE CULTUREon 09-20-2023 Bacteria identified Cx Nom (Unsp spec) No growth at 3 days Normal [facility] Comment on above: Order Comment: Pre-o p diagnosis:Peripheral artery disease (CMS/HCC) [I73.9] Performed By: #### D EVICE CULTURE ####[facility] [place] [address] Bacteria identified Cx Nom (Unsp spec) No growth at 3 days Normal [facility] Comment on above: Order Comment: Pre-o p diagnosis:Peripheral artery disease (CMS/HCC) [I73.9] Performed By: #### D MIRIAN CULTURE ####[facility] ([facility])[address] [place] [address] MAGNESIUMon 09-20-2023 Magnesium [Mass/Vol] 1.5 mg/dL Low 1.9-2.7 [facility] Comment on above: Performed By: #### L [id number] ####[facility] ([facility])[address] [place] [address] Magnesium [Mass/Vol] 1.9 mg/dL Normal 1.9-2.7 [facility] Comment on above: Performed By: #### L [id number] ####[facility] ([facility])[address] [place] [address] NURSNOTEon 09-20-2023 NURSNOTE Normal [facility] OPNOTEon 09-20-2023 OPNOTE Normal [facility] PHOSPHORUSon 09-20-2023 Magnesium [Mass/Vol] 2.9 mg/dL Normal 2.5-5.0 [facility] Comment on above: Performed By: #### L [id number] ####[facility] ([facility])[address] [address] Magnesium [Mass/Vol] 3.0 mg/dL Normal 2.5-5.0 [facility] Comment on above: Performed By: #### L [id number] ####[facility] ([facility])[address] [place] [place] [address] POCT ACTIVATED CLOTTING TIME UNSOLICITED RESULTSon 09-20-2023 POC ACTIVATED CLOTTING TIME 154 sec High 82-152 [facility] Comment on above: Performed By: #### L [id number] ####[facility] ([facility])[address] [place] [address] POC ACTIVATED CLOTTING TIME 199 sec High 82-152 [facility] Comment on above: Performed By: #### L [id number] ####[facility] ([facility])[address] [place] [address] POC ACTIVATED CLOTTING TIME 222 sec High 82-152 [facility] Comment on above: Performed By: #### L [id number] ####[facility] ([facility])[address] [place] [address] POC ACTIVATED CLOTTING TIME 154 sec High 82-152 [facility] Comment on above: Performed By: #### L [id number] ####[facility] ([facility])[address] [place] [address] POCT GLUCOSE METER UNSOLICIT ED RESULTSon 09-20-2023 Glucose [Mass/Vol] 156 mg/dL High 70-105 [facility] Comment on above: Order Comment: Waive d Testing in the ED is performed under the ED CLIA certificate #[id number]. Result Comment: [email or web address] [email or web address] Performed By: #### L [id number] ####[facility] ([facility])[address] [place] [address] Glucose [Mass/Vol] 105 mg/dL Normal 70-105 [facility] Comment on above: Order Comment: Waive d Testing in the ED is performed under the ED CLIA certificate #[id number]. Result Comment: [email or web address] Performed By: #### L [id number] ####[facility] ([facility])[address] [place] [address] POCT PERFUSION PANEL UNSOLIC ITED RESULTSon 09-20-2023 CO2 [Moles/Vol] 28.0 mmol/L Normal 21.0-29.0 [facility] Comment on above: Performed By: #### L [id number] ####[facility] ([facility])[address] [place] [address] Glucose [Mass/Vol] 152 mg/dL High 70-105 [facility] Comment on above: Performed By: #### L [id number] ####[facility] ([facility])[address] [place] [address] HCO3 (Bld) [Moles/Vol] 27.1 mmol/L Normal 23.0-28.0 [facility] Comment on above: Performed By: #### L [id number] ####[facility] ([facility])[address] [address] Hematocrit (Bld) [Volume fraction] 32 % Low 38-51 [facility] Comment on above: Performed By: #### L [id number] ####[facility] [address] Hemoglobin (Bld) [Mass/Vol] 10.9 g/dL Low 12.0-17.0 [facility] Comment on above: Performed By: #### L [id number] ####[facility] ([facility] [address] POCT BASE EXCESS 3.0 mmol/L Normal -2.0-3.0 [facility] Comment on above: Performed By: #### L [id number] ####[facility] ([facility] [address] POCT IONIZED CALCIUM 1.27 mmol/L Normal 1.12-1.32 [facility] Comment on above: Performed By: #### L [id number] ####[facility] ([facility] [address] POCT PCO2 40.5 mmHg Low 41.0-51.0 [facility] Comment on above: Performed By: #### L [id number] ####[facility] ([facility])[address] [address] POCT PH 7.43 High 7.31-7.41 [facility] Comment on above: Performed By: #### L [id number] ####[facility] ([facility])[address] [address] POCT PO2 280 mmHg High 80-105 [facility] Comment on above: Performed By: #### L [id number] ####[facility] ([facility])[address] [address] POCT SO2 100 % High 95-98 [facility] Comment on above: Performed By: #### L [id number] ####[facility] ([facility])[address] [place] [address] Potassium [Moles/Vol] 3.0 mmol/L Low 3.5-4.9 [facility] Comment on above: Performed By: #### L [id number] ####[facility] ([facility])[address] [place] [address] Sodium [Moles/Vol] 135 mmol/L Low 138.0-146.0 [facility] Comment on above: Performed By: #### L [id number] ####[facility] ([facility])[address] [place] [address] CO2 [Moles/Vol] 29.0 mmol/L Normal 21.0-29.0 [facility] Comment on above: Performed By: #### L [id number] ####[facility] ([facility])[address] [place] [address] Glucose [Mass/Vol] 122 mg/dL High 70-105 [facility] Comment on above: Performed By: #### L [id number] ####[facility] ([facility])[address] [place] [address] HCO3 (Bld) [Moles/Vol] 27.9 mmol/L Normal 23.0-28.0 [facility] Comment on above: Performed By: #### L [id number] ####[facility] ([facility])[address] [place] [address] Hematocrit (Bld) [Volume fraction] 34 % Low 38-51 [facility] Comment on above: Performed By: #### L [id number] ####[facility] ([facility])[address] [place] [address] Hemoglobin (Bld) [Mass/Vol] 11.6 g/dL Low 12.0-17.0 [facility] Comment on above: Performed By: #### L [id number] ####[facility] ([facility])[address] [place] [address] POCT BASE EXCESS 4.0 mmol/L High -2.0-3.0 [facility] Comment on above: Performed By: #### L [id number] ####[facility] ([facility] [place] [address] POCT IONIZED CALCIUM 1.11 mmol/L Low 1.12-1.32 [facility] Comment on above: Performed By: #### L [id number] ####[facility] ([facility] [place] [address] POCT PCO2 38.6 mmHg Low 41.0-51.0 [facility] Comment on above: Performed By: #### L [id number] ####[facility] ([facility])[address] [place] [address] POCT PH 7.47 High 7.31-7.41 [facility] Comment on above: Performed By: #### L [id number] ####[facility] ([facility])[address] [place] [address] POCT PO2 284 mmHg High 80-105 [facility] Comment on above: Performed By: #### L [id number] ####[facility] ([facility])[address] [place] [address] POCT SO2 100 % High 95-98 [facility] Comment on above: Performed By: #### L [id number] ####[facility] ([facility])[address] [place] [address] Potassium [Moles/Vol] 3.1 mmol/L Low 3.5-4.9 [facility] Comment on above: Performed By: #### L [id number] ####[facility] ([facility] [place] [address] Sodium [Moles/Vol] 137 mmol/L Low 138.0-146.0 [facility] Comment on above: Performed By: #### L [id number] ####[facility] ([facility])[address] [place] [address] PROTIME-INRon 09-20-2023 INR IN PPP BY COAGULATION ASSAY 1.17 High 0.90-1.10 [facility] Comment on above: Result Comment: [facility] P RECOMMENDED INR FOR WARFARIN THERAPY CONDITION INRPROPHYLAXIS OF VENOUS THROMBOSIS 2-3(HIGH-RISK SURGERY)TREATMENT OF VENOUS THROMBOSIS 2-3TREATMENT OF PULMONARY EMBOLISM 2-3PREVENTION OF SYSTEMIC EMBOLISM: 2-3 ACUTE MYOCARDIAL INFARCTION TISSUE HEART VALVES VALVULAR HEART DISEASE ATRIAL FIBRILLATION RECURRENT SYSTEMIC EMBOLISMMECHANICAL HEART VALVE 2.5-3.5 FROM: ORAL ANTICOAGULANTS. MECHANISM OF ACTION, CLINICAL EFFECTIVENESS, AND OPTIMAL THERAPEUTIC RANGE. CHEST 1995;108:231S-246S. Performed By: #### L [id number] ####[facility] ([facility])[address] [place] [address] PROTHROMBIN TIME (PT) IN PPP BY COAGULATION ASSAY 14.9 Seconds High 12.3-14.8 [facility] Comment on above: Performed By: #### L [id number] ####[facility] ([facility])[address] [place] [address] TISSUE CULTUREon 09-20-2023 GRAM STAIN RESULT Normal [facility] Comment on above: Order Comment: Pre-o p diagnosis:Peripheral artery disease (CMS/HCC) [I73.9]Rare Growth Skin Rita Result Comment: Many Polymorphonuclear leukocytesNo organisms seen Performed By: #### L [id number] ####[facility] ([facility])[address] [address] 30on 09-19-2023 30 Normal [facility] 30 Normal [facility] ANESon 09-19-2023 ANES Normal [facility] APTTon 09-19-2023 ACTIVATED PARTIAL THROMBOPLASTIN TIME IN PPP BY COAGULATION ASSAY 35.0 Seconds Normal 25.0-35.0 [facility] Comment on above: Result Comment: Clin ical significance of the APTT is questionable in the presence of heparin. Performed By: #### L [id number] ####[facility] ([facility] [place] [address] BASIC METABOLIC PANELon 09-09 Anion gap [Moles/Vol] 7 mmol/L Normal 7-20 [facility] Comment on above: Performed By: #### L [id number] ####[facility] ([facility])[address] [place] [address] Calcium [Mass/Vol] 8.8 mg/dL Normal 8.6-10.3 [facility] Comment on above: Performed By: #### L [id number] ####[facility] ([facility])[address] [place] [address] Chloride [Moles/Vol] 103 mmol/L Normal 98-107 [facility] Comment on above: Performed By: #### L [id number] ####[facility] ([facility])[address] [place] [address] CO2 [Moles/Vol] 28 mmol/L Normal 21-31 [facility] Comment on above: Performed By: #### L [id number] ####[facility] ([facility])[address] [place] [address] Creatinine [Mass/Vol] 0.46 mg/dL Low 0.70-1.30 [facility] Comment on above: Performed By: #### L [id number] ####[facility] ([facility])[address] [place] [address] GLOMERULAR FILTRATION RATE ML/MIN/1.73 SQ M.PREDICTED 108.4 mL/min/1.73m*2 Normal >60.0 [facility] Comment on above: Result Comment: The [facility]???s estimated glomerular filtration rate (eGFR) will no longer include consideration of race in its calculation. The National Kidney Foundation???s eGFR Task Force developed new recommendations for the estimation of the glomerular filtration rate in the [place] They recommend immediate implementation of the new equation refit without the race variable in all laboratories because the calculation does not include race. In addition to not including race in the calculation and reporting, it included diversity in its development, and has acceptable performance characteristics and potential consequences that do not disproportionately affect any one group of individuals. Performed By: #### L [id number] ####[facility] ([facility])[address] [place] [address] Glucose [Mass/Vol] 166 mg/dL High 70-100 [facility] Comment on above: Performed By: #### L [id number] ####[facility] ([facility])[address] [place] [address] Potassium [Moles/Vol] 3.8 mmol/L Normal 3.5-5.[address] [facility] Comment on above: Performed By: #### L [id number] ####[facility] ([facility])[address] [place] [address] Sodium [Moles/Vol] 134 mmol/L Low 136-145 [facility] Comment on above: Performed By: #### L [id number] ####[facility] ([facility])[address] [place] [address] Urea nitrogen [Mass/Vol] 18 mg/dL Normal 7-25 [facility] Comment on above: Performed By: #### L [id number] ####[facility] ([facility])[address] [place] [address] UREA NITROGEN/CREATININE (MASS RATIO) IN SER/PLAS 39.1 Normal [facility] Comment on above: Performed By: #### L [id number] ####[facility] ([facility])[address] [place] [address] CBC WITH AUTO DIFFERENTIALon 09-19-2023 Basophils (Bld) [#/Vol] 0.00 10*3/uL Normal 0.00-0.20 [facility] Comment on above: Performed By: #### L [id number] ####[facility] ([facility])[address] [place] [address] Basophils/100 WBC (Bld) 0.0 % Normal 0.0-1.0 [facility] Comment on above: Performed By: #### L [id number] ####[facility] ([facility])[address] [place] [address] Eosinophils (Bld) [#/Vol] 0.00 10*3/uL Normal 0.00-0.50 [facility] Comment on above: Performed By: #### L [id number] ####[facility] ([facility])[address] [place] [address] Eosinophils/100 WBC (Bld) 0.0 % Normal 0.0-6.0 [facility] Comment on above: Performed By: #### L [id number] ####[facility] ([facility])[address] [place] [address] Erythrocyte distribution width (RBC) [Ratio] 18.8 % High 11.5-15.0 [facility] Comment on above: Performed By: #### L [id number] ####[facility] ([facility])[address] [place] [address] ERYTHROCYTE MEAN CORPUSCULAR HEMOGLOBIN CONCENTRATION (G/DL) BY AUTOMATED 32.5 g/dL Normal 32.0-35.0 [facility] Comment on above: Performed By: #### L [id number] ####[facility] ([facility])[address] [place] [address] Hematocrit (Bld) [Volume fraction] 24.9 % Low 39.0-55.0 [facility] Comment on above: Performed By: #### L [id number] ####[facility] ([facility])[address] [place] [address] Hemoglobin (Bld) [Mass/Vol] 8.1 g/dL Low 13.0-17.0 [facility] Comment on above: Performed By: #### L [id number] ####[facility] ([facility] [place] [address] Immature granulocytes (Bld) [#/Vol] 0.02 10*3/uL Normal 0.00-0.20 [facility] Comment on above: Performed By: #### L [id number] ####[facility] ([facility])[address] [place] [address] Immature granulocytes/100 WBC (Bld) 0.4 % Normal 0.0-1.0 [facility] Comment on above: Performed By: #### L [id number] ####[facility] ([facility])[address] [place] [address] Lymphocytes (Bld) [#/Vol] 0.14 10*3/uL Low 1.20-4.00 [facility] Comment on above: Performed By: #### L [id number] ####[facility] ([facility])[address] [place] [address] Lymphocytes/100 WBC (Bld) 2.7 % Low 20.0-45.0 [facility] Comment on above: Performed By: #### L [id number] ####[facility] ([facility])[address] [place] [address] MCH (RBC) [Entitic mass] 27.3 pg Normal 27.0-33.0 [facility] Comment on above: Performed By: #### L [id number] ####[facility] ([facility] [place] [address] MCV (RBC) [Entitic vol] 83.8 fL Normal 82.0-98.0 [facility] Comment on above: Performed By: #### L [id number] ####[facility] ([facility])[address] [place] [address] Monocytes (Bld) [#/Vol] 0.09 10*3/uL Low 0.10-1.00 [facility] Comment on above: Performed By: #### L [id number] ####[facility] ([facility])[address] [place], [place] [address] Monocytes/100 WBC (Bld) 1.8 % Low 5.0-12.0 [facility] Comment on above: Performed By: #### L [id number] ####[facility] ([facility])[address] [place] [address] Neutrophils (Bld) [#/Vol] 4.87 10*3/uL Normal 1.60-7.60 [facility] Comment on above: Performed By: #### L [id number] ####[facility] ([facility])[address] [place], [place] [address] Neutrophils/100 WBC (Bld) 95.1 % High 40.0-72.0 [facility] Comment on above: Performed By: #### L [id number] ####[facility] ([facility])[address] [place], [place] [address] NRBC (PER 100 WBCS) BY AUTOMATED COUNT 0.0 % Normal 0 [facility] Comment on above: Performed By: #### L [id number] ####[facility] ([facility] [place], [place] [address] PLATELETS (10*3/UL) IN BLOOD AUTOMATED COUNT 105 10*3/uL Low 150-400 [facility] Comment on above: Performed By: #### L [id number] ####[facility] ([facility])[address] [place], [place] [address] RBC (Bld) [#/Vol] 2.97 10*6/uL Low 4.20-5.70 [facility] Comment on above: Performed By: #### L [id number] ####[facility] ([facility])[address] [place], [place] [address] WBC (Bld) [#/Vol] 5.12 10*3/uL Normal 4.00-10.60 [facility] Comment on above: Performed By: #### L [id number] ####[facility] ([facility] [place] [address] MAGNESIUMon 09-19-2023 Magnesium [Mass/Vol] 1.7 mg/dL Low 1.9-2.7 [facility] Comment on above: Performed By: #### L [id number] ####[facility] ([facility])[address] [place] [address] MRSA/MSSA DNA NASALon 2022 MRSA DNA Negative Normal Negative [facility] Comment on above: Order Comment: Testi ng methodology is an automated qualitative in vitro diagnostic test for the directdetection and differentiation of Staphylococcus aureus (SA) DNA and methicillin-resistant Staphylococcus aureus (MRSA) DNA from nasal swabs in patients at risk for nasal colonization. The test utilizes real-time polymerase chain reaction (PCR) for the amplification of MRSA/SA DNA and fluorogenic target-specific hybridization probes for the detection of the amplified DNA. A negative result does not preclude nasal colonization. Performed By: #### L [id number] ####[facility] ([facility])[address] [place] [address] MSSA DNA Negative Normal Negative [facility] Comment on above: Order Comment: Testi ng methodology is an automated qualitative in vitro diagnostic test for the directdetection and differentiation of Staphylococcus aureus (SA) DNA and methicillin-resistant Staphylococcus aureus (MRSA) DNA from nasal swabs in patients at risk for nasal colonization. The test utilizes real-time polymerase chain reaction (PCR) for the amplification of MRSA/SA DNA and fluorogenic target-specific hybridization probes for the detection of the amplified DNA. A negative result does not preclude nasal colonization. Performed By: #### L [id number] ####[facility] ([facility])[address] [place] [address] PHOSPHORUSon 09-19-2023 Magnesium [Mass/Vol] 3.1 mg/dL Normal 2.5-5.0 [facility] Comment on above: Performed By: #### L [id number] ####[facility] ([facility])[address] [place] [address] POCT GLUCOSE METER UNSOLICIT ED RESULTSon 09-19-2023 Glucose [Mass/Vol] 244 mg/dL High 70-105 [facility] Comment on above: Order Comment: Waive d Testing in the ED is performed under the ED CLIA certificate #[id number]. Result Comment: [email or web address] Performed By: #### L [id number] ####[facility] ([employer])[address] [place] [address] Glucose [Mass/Vol] 140 mg/dL High 70-105 [facility] Comment on above: Order Comment: Waive d Testing in the ED is performed under the ED CLIA certificate #[id number]. Result Comment: [email or web address] Performed By: #### L [id number] ####[facility] ([facility])[address] [place] [address] Glucose [Mass/Vol] 192 mg/dL High 70-105 [facility] Comment on above: Order Comment: Waive d Testing in the ED is performed under the ED CLIA certificate #[id number]. Result Comment: elac umsky Performed By: #### L [id number] ####[facility] ([employer])[address] [place] [address] Glucose [Mass/Vol] 163 mg/dL High 70-105 [facility] Comment on above: Order Comment: Waive d Testing in the ED is performed under the ED CLIA certificate #[id number]. Result Comment: elac umsky Performed By: #### L [id number] ####[facility] ([facility])[address] [employer] [place] [address] PROTIME-INRon 09-19-2023 INR IN PPP BY COAGULATION ASSAY 1.27 High 0.90-1.10 [facility] Comment on above: Result Comment: [facility] P RECOMMENDED INR FOR WARFARIN THERAPY CONDITION INRPROPHYLAXIS OF VENOUS THROMBOSIS 2-3(HIGH-RISK SURGERY)TREATMENT OF VENOUS THROMBOSIS 2-3TREATMENT OF PULMONARY EMBOLISM 2-3PREVENTION OF SYSTEMIC EMBOLISM: 2-3 ACUTE MYOCARDIAL INFARCTION TISSUE HEART VALVES VALVULAR HEART DISEASE ATRIAL FIBRILLATION RECURRENT SYSTEMIC EMBOLISMMECHANICAL HEART VALVE 2.5-3.5 FROM: ORAL ANTICOAGULANTS. MECHANISM OF ACTION, CLINICAL EFFECTIVENESS, AND OPTIMAL THERAPEUTIC RANGE. CHEST 1995;108:231S-246S. Performed By: #### L [id number] ####[facility] ([facility])[address] [place] [address] PROTHROMBIN TIME (PT) IN PPP BY COAGULATION ASSAY 16.0 Seconds High 12.3-14.8 [facility] Comment on above: Performed By: #### L [id number] ####[facility] ([facility])[address] [place] [address] TYPE AND SCREENon 09-19-2023 AB SCREEN Negative Normal [facility] Comment on above: Performed By: #### L [id number] ####[facility]OD [facility], ABO group Nom (Bld) O Normal [facility] Comment on above: Performed By: #### L [id number] ####[facility], RH TYPE IN BLOOD Positive Normal [facility] Comment on above: Performed By: #### L [id number] ####[facility] B[facility], BASIC METABOLIC PANELon 09-09 Anion gap [Moles/Vol] 8 mmol/L Normal 7-20 [facility] Comment on above: Performed By: #### L [id number] ####[facility] ([facility])[address] [place] [address] Calcium [Mass/Vol] 8.4 mg/dL Low 8.6-10.3 [facility] Comment on above: Performed By: #### L [id number] ####[facility] (BEAKER)[address] [place] [address] Chloride [Moles/Vol] 99 mmol/L Normal 98-107 [facility] Comment on above: Performed By: #### L [id number] ####[facility] ([facility])[address] [place] [address] CO2 [Moles/Vol] 28 mmol/L Normal 21-31 [facility] Comment on above: Performed By: #### L [id number] ####[facility] ([facility])[address] [place] [address] Creatinine [Mass/Vol] 0.52 mg/dL Low 0.70-1.30 [facility] Comment on above: Performed By: #### L [id number] ####[facility] ([facility])[address] [place] [address] GLOMERULAR FILTRATION RATE ML/MIN/1.73 SQ M.PREDICTED 104.5 mL/min/1.73m*2 Normal >60.0 [facility] Comment on above: Result Comment: [facility]???s estimated glomerular filtration rate (eGFR) will no longer include consideration of race in its calculation. The National Kidney Foundation???s eGFR Task Force developed new recommendations for the estimation of the glomerular filtration rate in the [place] They recommend immediate implementation of the new equation refit without the race variable in all laboratories because the calculation does not include race. In addition to not including race in the calculation and reporting, it included diversity in its development, and has acceptable performance characteristics and potential consequences that do not disproportionately affect any one group of individuals. Performed By: #### L [id number] ####[facility] ([facility] [place] [address] Glucose [Mass/Vol] 193 mg/dL High 70-100 [facility] Comment on above: Performed By: #### L [id number] ####[facility] ([facility] [place] [address] Potassium [Moles/Vol] 3.7 mmol/L Normal 3.5-5.1 [facility] Comment on above: Performed By: #### L [id number] ####[facility] (BEAKER)[address] [place] [address] Sodium [Moles/Vol] 131 mmol/L Low 136-145 [facility] Comment on above: Performed By: #### L [id number] ####[facility] ([facility])[address] [place] [address] Urea nitrogen [Mass/Vol] 19 mg/dL Normal 7-25 [facility] Comment on above: Performed By: #### L [id number] ####[facility] ([facility])[address] [place] [address] UREA NITROGEN/CREATININE (MASS RATIO) IN SER/PLAS 36.5 Normal [facility] Comment on above: Performed By: #### L [id number] ####[facility] ([facility])[address] [place] [address] CBC WITH AUTO DIFFERENTIALon 09-18-2023 Basophils (Bld) [#/Vol] 0.00 10*3/uL Normal 0.00-0.20 [facility] Comment on above: Performed By: #### L [id number] ####[facility] ([facility])[address] [place] [address] Basophils/100 WBC (Bld) 0.0 % Normal 0.0-1.0 [facility] Comment on above: Performed By: #### L [id number] ####[facility] ([facility])[address] [place] [address] Eosinophils (Bld) [#/Vol] 0.00 10*3/uL Normal 0.00-0.50 [facility] Comment on above: Performed By: #### L [id number] ####[facility] ([facility])[address] [place] [address] Eosinophils/100 WBC (Bld) 0.0 % Normal 0.0-6.0 [facility] Comment on above: Performed By: #### L [id number] ####[facility] ([facility])[address] [place] [address] Erythrocyte distribution width (RBC) [Ratio] 19.1 % High 11.5-15.0 [facility] Comment on above: Performed By: #### L [id number] ####[facility] (BE[facility]ER)[address] [place] [address] ERYTHROCYTE MEAN CORPUSCULAR HEMOGLOBIN CONCENTRATION (G/DL) BY AUTOMATED 31.9 g/dL Low 32.0-35.0 [facility] Comment on above: Performed By: #### L [id number] ####[facility] ([facility])[address] [place] [address] Hematocrit (Bld) [Volume fraction] 25.4 % Low 39.0-55.0 [facility] Comment on above: Performed By: #### L [id number] ####[facility] ([facility])[address] [place] [address] Hemoglobin (Bld) [Mass/Vol] 8.1 g/dL Low 13.0-17.0 [facility] Comment on above: Performed By: #### L [id number] ####[facility] ([facility])[address] [place] [address] Immature granulocytes (Bld) [#/Vol] 0.03 10*3/uL Normal 0.00-0.20 [facility] Comment on above: Performed By: #### L [id number] ####[facility] ([facility])[address] [place] [address] Immature granulocytes/100 WBC (Bld) 0.3 % Normal 0.0-1.0 [facility] Comment on above: Performed By: #### L [id number] ####[facility] ([facility]ER)[address] [place], [place] [address] Lymphocytes (Bld) [#/Vol] 0.22 10*3/uL Low 1.20-4.00 [facility] Comment on above: Performed By: #### L [id number] ####[facility] ([facility])[address], [place] [address] Lymphocytes/100 WBC (Bld) 2.1 % Low 20.0-45.0 [facility] Comment on above: Performed By: #### L [id number] ####[facility] ([facility])[address] [place] [address] MCH (RBC) [Entitic mass] 26.8 pg Low 27.0-33.0 [facility] Comment on above: Performed By: #### L [id number] ####[facility] ([facility])[address] [place] [address] MCV (RBC) [Entitic vol] 84.1 fL Normal 82.0-98.0 [facility] Comment on above: Performed By: #### L [id number] ####[facility] ([facility])[address] [place] [address] Monocytes (Bld) [#/Vol] 0.12 10*3/uL Normal 0.10-1.00 [facility] Comment on above: Performed By: #### L [id number] ####[facility] ([facility])[address] [place] [address] Monocytes/100 WBC (Bld) 1.2 % Low 5.0-12.0 [facility] Comment on above: Performed By: #### L [id number] ####[facility] ([facility])[address] [place] [address] Neutrophils (Bld) [#/Vol] 9.88 10*3/uL High 1.60-7.60 [facility] Comment on above: Performed By: #### L [id number] ####[facility] ([facility]ER)[address] [place] [address] Neutrophils/100 WBC (Bld) 96.4 % High 40.0-72.0 [facility] Comment on above: Performed By: #### L [id number] ####[facility] ([facility])[address] [place] [address] NRBC (PER 100 WBCS) BY AUTOMATED COUNT 0.0 % Normal 0 [facility] Comment on above: Performed By: #### L [id number] ####[facility] ([facility])[address] [place] [address] PLATELETS (10*3/UL) IN BLOOD AUTOMATED COUNT 125 10*3/uL Low 150-400 [facility] Comment on above: Performed By: #### L [id number] ####[facility] ([facility])[address] [place] [address] RBC (Bld) [#/Vol] 3.02 10*6/uL Low 4.20-5.70 [facility] Comment on above: Performed By: #### L [id number] ####[facility] ([facility])[address] [place] [address] WBC (Bld) [#/Vol] 10.25 10*3/uL Normal 4.00-10.60 [facility] Comment on above: Performed By: #### L [id number] ####[facility] ([facility])[address] [place] [address] CTA AORTA AND BILATERAL ILIO FEMORAL RUNOFF W AND/OR WO IV CONTRASTon 09-18-2023 CTA AORTA AND BILATERAL ILIOFEMORAL RUNOFF W AND/OR WO IV CONTRAST Normal [facility] CTA CHEST W AND/OR WO IV CON TRASTon 09-18-2023 CTA CHEST W AND/OR WO IV CONTRAST Normal [facility] EDNURSon 09-18-2023 EDNURS Normal [facility] EDPROVon 09-18-2023 EDPROV Invalid Interpretation Code [facility] HPon 09-18-2023 HP Normal [facility] LACTIC ACID WITH 4 HOUR REFL EXon 09-18-2023 LACTATE (MMOL/L) IN SER/PLAS 1.6 mmol/L Normal 0.5-2.2 [facility] Comment on above: Performed By: #### L [id number] ####[facility] ([facility])[address] [place] [address] MAGNESIUMon 09-18-2023 Magnesium [Mass/Vol] 1.6 mg/dL Low 1.9-2.7 [facility] Comment on above: Performed By: #### L [id number] ####[facility] ([facility])[address] [place] [address] PHOSPHORUSon 09-18-2023 Magnesium [Mass/Vol] 3.1 mg/dL Normal 2.5-5.0 [facility] Comment on above: Performed By: #### L [id number] ####[facility] ([facility])[address] [place] [address] POCT GLUCOSE METER UNSOLICIT ED RESULTSon 09-18-2023 Glucose [Mass/Vol] 228 mg/dL High 70-105 [facility] Comment on above: Order Comment: Waive d Testing in the ED is performed under the ED CLIA certificate #[id number]. Result Comment: [email or web address] Performed By: #### L [id number] ####[facility] ([facility])[address] [place] [address] Follow-Upon 08-31-2023 Follow-Up Normal [facility] 36on 08-12-2023 36 Normal [facility] Telephoneon 08-12-2023 Telephone Normal [facility] Physician Referralon 023 Physician Referral [id number]#[id number] [facility] Follow-Upon 06-20-2023 Follow-Up Normal [facility] Follow-Upon 05-16-2023 Follow-Up [facility] Consent for Treatmenton 04-11 Consent for Treatment [id number]#1.00CD:127 Normal [facility] Heart and Vascular Office/Cl inic Noteon 05-09-2023 Heart and Vascular Office/Clinic Note Normal [facility] Comment on above: Result Comment: Elec tronically Signed By: Vickey WISE, Erwin Parisi.br\Date and Time Signed: 05/09/23 09:55 EDT Reminderson 05-05-2023 Reminders Normal [facility] Consent for Anesthesiaon Consent for Anesthesia [id number]#1.00CD:12 7 Normal [facility] IntraOperative Documentson 0 04-19-2023 IntraOperative Documents [id number]#1.00CD:127 Normal [facility] IntraOperative Documentson 0 04-15-2023 IntraOperative Documents [id number]#1.00CD:127 Normal [facility] Operative Reporton Operative Report Normal [facility] Comment on above: Result Comment: Elec tronically Signed By: Erwin Hurd MD\.br\Date and Time Signed: 04/14/23 12:35 EDT Progress Note-Physicianon Progress Note-Physician [facility] Comment on above: Result Comment: Elec tronically Signed By: MD Horner Ahmad F\.br\Date and Time Signed: 04/14/23 19:33 EDT Progress Note-Physician [facility] Comment on above: Result Comment: Elec tronically Signed By: MD Horner Ahmad F\.br\Date and Time Signed: 04/14/23 19:28 EDT Consent for Anesthesiaon Consent for Anesthesia [id number]#1.00CD:12 7 Normal [facility] Discharge Instructionson Discharge Instructions [id number]#1.00CD:12 7 Normal [facility] Main OR Intraoperative Recor don 04-13-2023 Main OR Intraoperative Record Normal [facility] Capillary Glucose POCon Glucose [Mass/Vol] 97 mg/dL Normal 55-99 [facility] Comment on above: Result Comment: Sayra feldman MeterNo Coverage Given Performed By: #### 2 [id number] ####[facility] [address] [place] [address] Consent for Procedure/Surger yon 04-11-2023 Consent for Procedure/Surgery [id number]#1.00CD:127 Normal [facility] Consent for Treatmenton Consent for Treatment [id number]#1.00CD:127 Normal [facility] Discharge Instructionson Discharge Instructions Normal [facility] Comment on above: Result Comment: Elec tronically Signed By: Rakesh GUARDADO, Karissa Hernandez\.br\Date and Time Signed: 04/11/23 15:05 EDT H&P Updateon 04-11-2023 H&P Update [id number]#1.00CD:127 Normal [facility] Main OR PACU I Recordon Main OR PACU I Record Normal [facility] Main OR Preoperative Recordo n 04-11-2023 Main OR Preoperative Record Normal [facility] Monitor Recordon 04-11-2023 Monitor Record [id number]#1.00CD:127 Normal [facility] PT & PTTon 04-11-2023 aPTT Coag (PPP) [Time] 38.1 second(s) High 25.1-36.5 [facility] Comment on above: Result Comment: Para meter 15 days - 4 weeks 1 - 5 months 6 - 11 months 1 - 5 years 6 - 10 years 11 - 17 years PTT Mean: 35.4 (27.6-45.6) Mean: 33.5 (24.8-40.7) Mean: 32.4 (25.1-40.7) Mean: 31.6 (24.0-39.2) Mean: 31.6 (26.9-38.7) Mean: 31.0 (24.6-38.4) Pediatric Reference ranges were obtained from a study by ru Livingston al. prepared from 1437 samples obtained at 7 different centers using the same coagulation reagent and instrumentation as [facility]. Currently there are no coagulation studies available worldwide for children to 14 days, and no normal ranges. Heparin therapeutic range (represented by Anti-Factor Xa activity of 0.2 - 0.4 U/mL) corresponds to PTT of 56.6 - 109.0 sec. Performed By: #### 1 [id number] ####[address] [place] [address] INR Coag (PPP) [Relative time] 1.2 {INR} Invalid Interpretation Code [facility] Comment on above: Result Comment: INR results are specifically intended to assess patients stabilized on long-term Anticoagulation therapy suggested INR?s ?Less Intensive Anticoagulation? 2.0 ? 3.0Conventional Range 3.0 ? 4.5 Performed By: #### 1 [id number] ####[address] [address] PT Coag (PPP) [Time] 13.3 second(s) High 9.4-12.5 [facility] Comment on above: Result Comment: 15 d ays - 4 weeks 1 - 5 months 6 -11 months 1 ? 5 years 6 ? 10 years 11 -17 years Mean: 11.2 (9.5 ? 12.6) Mean: 11.0 (9.7 ? 12.8) Mean: 11.0 (9.8 ? 13.0) Mean: 11.3 (9.9 ? 13.4) Mean: 11.7 (10.0 ? 14.6) Mean: 11.8 (10.0 - 14.1) Pediatric Reference ranges were obtained from a study by Azeem Hernandez et al. prepared from 1437 samples obtained at 7 different centers using the same coagulation reagent and instrumentation as [facility]. Currently there are no coagulation studies available worldwide for children to 14 days, and no normal ranges. Performed By: #### 1 [id number] ####[address] [address] Patient Education - Texton 0 04-11-2023 Patient Education - Text Normal [facility] BMPon 04-08-2023 Creatinine [Mass/Vol] 0.6 mg/dL Normal 0.5-1.3 [facility] Comment on above: Performed By: #### 1 [id number], 9679701, 3634802, 3534327, 8517925, 49474928 ####[facility] [address] [place] [address] Urea nitrogen [Mass/Vol] 27 mg/dL High 5-21 [facility] Comment on above: Performed By: #### 1 [id number], 4832851, 3088735, 0553663, 5060724, 29100458 ####[facility] [address] [place] [address] Urea nitrogen/Creatinine [Mass ratio] 45 No Units High 10-20 [facility] Comment on above: Performed By: #### 1 [id number], 5054396, 5653543, 8303424, 6310534, 10820446 ####[facility] [address] [place] [address] Anion gap [Moles/Vol] 9 mmol/L Normal 6-16 [facility] Comment on above: Performed By: #### 1 4759775, 8089941, 6688312, 1898332, 4382158, 44120330 ####[facility] [address] [place] [address] Calcium [Mass/Vol] 8.5 mg/dL Low 8.9-11.1 [facility] Comment on above: Performed By: #### 1 3403428, 7425257, 9677961, 8434063, 0416065, 04453281 ####[facility] [address] [place] [address] Chloride [Moles/Vol] 99 mmol/L Low 101-111 [place] Comment on above: Performed By: #### 1 1566389, 1401610, 1614655, 4315285, 6828920, 22607297 ####[facility] [address] [place] [address] CO2 [Moles/Vol] 28 mmol/L Normal 21-31 [facility] Comment on above: Performed By: #### 1 0745429, 8304768, 6616521, 1639354, 5759146, 67659642 ####[facility] [address] [place] [address] Glucose [Mass/Vol] 163 mg/dL Normal 55-199 [facility] Comment on above: Result Comment: If t his glucose result represents a fasting glucose, interpretation should refer to the following reference range: 55-99 mg/dL Performed By: #### 1 5557767, 0991795, 2663237, 9332871, 7705906, 80543791 ####[facility] [address] [place] [address] Potassium [Moles/Vol] 3.7 mmol/L Normal 3.5-5.3 [facility] Comment on above: Performed By: #### 1 2272528, 9189066, 4252971, 0010251, 2630335, 83702926 ####[facility] [address] [place] [address] Sodium [Moles/Vol] 132 mmol/L Low 135-145 [facility] Comment on above: Performed By: #### 1 [id number], 9304437, 9399125, 5149114, 7473951, 97384749 ####[facility] [address] [place] [address] CBC w/Indiceson 04-08-2023 Erythrocyte distribution width (RBC) [Ratio] 20.5 % High 10.9-14.2 [facility] Comment on above: Performed By: #### 1 8934257, 9666325, 5824216, 9950451, 1136047, 00088780 ####[facility] [address] [place] [address] Hematocrit (Bld) [Volume fraction] 31.4 % Low 37.7-49.0 [facility] Comment on above: Performed By: #### 1 9229696, 5629498, 1739404, 8547421, 8300115, 28227368 ####[facility] [address] [place] [address] Hemoglobin (Bld) [Mass/Vol] 10.2 g/dL Low 13.5-17.5 [facility] Comment on above: Performed By: #### 1 3598719, 7047434, 0415294, 4693561, 1727874, 81411491 ####[address] [place] [address] MCH (RBC) [Entitic mass] 30.3 pg Normal 27.0-34.0 [facility] Comment on above: Performed By: #### 1 0000472, 8091837, 9762999, 1268694, 4029950, 29454330 ####[address] [place] [address] MCHC (RBC) [Mass/Vol] 32.6 g/dL Normal 31.4-36.0 [facility] Comment on above: Performed By: #### 1 5119007, 3825857, 8772653, 8711681, 3432661, 83472770 ####[address] [address] MCV (RBC) [Entitic vol] 92.9 fL Normal 80.0-100.0 [facility] Comment on above: Performed By: #### 1 3005095, 6528181, 4406024, 2652309, 5522795, 63826644 ####[address] [place] [address] Platelet mean volume (Bld) [Entitic vol] 9.2 fL Normal 6.4-10.8 [facility] Comment on above: Performed By: #### 1 8368644, 0942793, 9373669, 6367179, 9043797, 93896413 ####[address] [place] [address] Platelets (Bld) [#/Vol] 156.0 E9/L Normal 150.0-500.0 [facility] Comment on above: Performed By: #### 1 8860185, 4145270, 4336397, 4891102, 8411025, 78688261 ####[address] [place] [address] RBC (Bld) [#/Vol] 3.4 E12/L Low 4.3-5.9 [facility] Comment on above: Performed By: #### 1 5877577, 1418221, 2522128, 5804168, 1232452, 45371518 ####[facility] [address] [place] [address] WBC corrected for nucl RBC Auto (Bld) [#/Vol] 3.6 E9/L Low 4.0-11.0 [facility] Comment on above: Performed By: #### 1 6101188, 3542513, 8595776, 9061029, 4717935, 61901484 ####[facility] [address] [place] [address] CHEMISTRYOrdered By: SYSTEM SYSTEM on 04-08-2023 Anion gap [Moles/Vol] 9 mmol/L Normal 6 - 16 mEq/L [facility] Remisol Calcium [Mass/Vol] 8.5 mg/dL Low 8.9 - 11. 1 mg/dL [facility] Chloride [Moles/Vol] 99 mmol/L Low 101 - 1 11 mmol/L [facility] CO2 [Moles/Vol] 28 mmol/L Normal 21 - 31 mmol/L [facility] Creatinine [Mass/Vol] 0.6 mg/dL Normal 0.5 - 1.3 mg/dL [facility] Remisol GFR/1.73 sq M.predicted among non-blacks MDRD (S/P/Bld) [Vol rate/Area] 100 mL/min/1.73 m2 Normal >=59mL/min/ 1.73 m2 [facility] Chem S Glucose [Mass/Vol] 163 mg/dL Normal 55 - 199 mg/dL [facility] Magnesium [Mass/Vol] 1.9 mg/dL Normal 1.3 - 2 .4 mg/dL [facility] Remisol Phosphate [Mass/Vol] 2.7 mg/dL Normal 1.9 - 4 .6 mg/dL [facility] Potassium [Moles/Vol] 3.7 mmol/L Normal 3.5 - 5.3 mmol/L [facility] Sodium [Moles/Vol] 132 mmol/L Low 135 - 145 mmol/L [facility] Urea nitrogen [Mass/Vol] 27 mg/dL High 5 - 21 mg/dL [facility] Urea nitrogen/Creatinine [Mass ratio] 45 mg/mg High 10 - 20 [facility] COAGULATIONOrdered By: Yang Ayala on 04-08-2023 aPTT Coag (PPP) [Time] 40.6 s High 25.1 - 36.5 second(s) [facility] Auto Coag INR Coag (PPP) [Relative time] 1.7 {INR} Invalid Interpretation Code [facility] Auto Coag PT Coag (PPP) [Time] 19.0 s High 9.4 - 1 2.5 second(s) [facility] Auto Coag Consent for Treatmenton 03-12 Consent for Treatment [id number]#1.00CD:127 Normal [facility] Formson 04-08-2023 Forms [id number]#1.00CD:127 Normal [facility] HEMATOLOGYOrdered By: Fabi Massey on 04-08-2023 Erythrocyte distribution width (RBC) [Ratio] 20.5 % High 10.9 - 14.2 % [facility] HemeAutoSS Hematocrit (Bld) [Volume fraction] 31.4 % Low 37.7 - 49.0 % FT HemeAutoSS Hemoglobin (Bld) [Mass/Vol] 10.2 g/dL Low 13.5 - 17.5 gm/dL FT [facility]eAuto[facility] MCH (RBC) [Entitic mass] 30.3 pg Normal 27.0 - 34.0 pg FT [facility]eAuto[facility] MCHC (RBC) [Mass/Vol] 32.6 g/dL Normal 31.4 - 36.0 gm/dL FT [facility]eAuto[facility] MCV (RBC) [Entitic vol] 92.9 fL Normal 80.0 - 100.0 fL FT [facility]eAuto[facility] Platelet mean volume (Bld) [Entitic vol] 9.2 fL Normal 6.4 - 10.8 fL FT HemeAutoSS Platelets (Bld) [#/Vol] 156.0 E9/L Normal 150.0 - 500.0 E9/L FT HemeAutoSS RBC (Bld) [#/Vol] 3.4 E12/L Low 4.3 - 5.9 E12/L [facility] HemeAutoSS WBC corrected for nucl RBC Auto (Bld) [#/Vol] 3.6 E9/L Low 4.0 - 11.0 E9/L [facility] HemeAutoSS Magnesiumon 04-08-2023 Magnesium [Mass/Vol] 1.9 mg/dL Normal 1.3-2.4 [place] Comment on above: Performed By: #### 1 [id number], 3524587, 4118862, 8050529, 7441862, 33801691 ####[facility] [address] [place] [address] PT & PTTon 04-08-2023 aPTT Coag (PPP) [Time] 40.6 second(s) High 25.1-36.5 [facility] Comment on above: Result Comment: Para meter 15 days - 4 weeks 1 - 5 months 6 - 11 months 1 - 5 years 6 - 10 years 11 - 17 years PTT Mean: 35.4 (27.6-45.6) Mean: 33.5 (24.8-40.7) Mean: 32.4 (25.1-40.7) Mean: 31.6 (24.0-39.2) Mean: 31.6 (26.9-38.7) Mean: 31.0 (24.6-38.4) Pediatric Reference ranges were obtained from a study by Azeem Hernandez et al. prepared from 1437 samples obtained at 7 different centers using the same coagulation reagent and instrumentation as [facility]. Currently there are no coagulation studies available worldwide for children to 14 days, and no normal ranges. Heparin therapeutic range (represented by Anti-Factor Xa activity of 0.2 - 0.4 U/mL) corresponds to PTT of 56.6 - 109.0 sec. Performed By: #### 1 [id number], 9681535, 8162110, 9002103, 9487628, 70121244 ####[facility] [address] [place] [address] INR Coag (PPP) [Relative time] 1.7 {INR} Invalid Interpretation Code [facility] Comment on above: Result Comment: INR results are specifically intended to assess patients stabilized on long-term Anticoagulation therapy suggested INR?s ?Less Intensive Anticoagulation? 2.0 ? 3.0Conventional Range 3.0 ? 4.5 Performed By: #### 1 0735391, 3335717, 2802854, 9647168, 2132801, 97894099 ####[facility] [address] [place] [address] PT Coag (PPP) [Time] 19.0 second(s) High 9.4-12.5 [facility] Comment on above: Result Comment: 15 d ays - 4 weeks 1 - 5 months 6 -11 months 1- 5 years 6-10 years 11 -17 years Mean: 11.2 (9.5-12.6) Mean: 11.0 (9.7-12.8) Mean: 11.0 (9.8-13.0) Mean: 11.3 (9.9-13.4) Mean: 11.7 (10.0-14.6) Mean: 11.8 (10.0 - 14.1) Pediatric Reference ranges were obtained from a study by Azeem Hernandez et al. prepared from 1437 samples obtained at 7 different centers using the same coagulation reagent and instrumentation as [facility]. Currently there are no coagulation studies available worldwide for children to 14 days, and no normal ranges. Performed By: #### 1 [id number], 3230714, 7725313, 1360637, 8701478, 23321829 ####[facility] [address] [place] [address] Phosphoruson 04-08-2023 Phosphate [Mass/Vol] 2.7 mg/dL Normal 1.9-4.6 [place] Comment on above: Performed By: #### 1 0352648, 8815911, 4224053, 9235320, 1814751, 50836221 ####[facility] [address] [place] [address] Physician Orderon 04-08-2023 Physician Order [id number]#1.00CD:127 Normal [facility] eGFRon 04-08-2023 GFR/1.73 sq M.predicted among non-blacks MDRD (S/P/Bld) [Vol rate/Area] 100 mL/min/1.73 m2 Normal >=59 [facility] Comment on above: Order Comment: Order added by Discern Expert. Result Comment: Fluid Pump Operator alen kidney disease could be indicated at eGFR's of less than 60 mL/min/1.73m2. Kidney failure is indicated at less than 15 mL/min/1.73m2. Performed By: #### 1 8235728, 7061515, 6201824, 8385732, 2594820, 33771287 ####[facility] [address] [place] [address] Formson 04-07-2023 Forms [id number]#1.00CD:127 Normal [facility] Orders Officeon 04-07-2023 Orders Office [id number]#1.00CD:127 Normal [facility] Path. Reviewon 04-05-2023 Path Review Anemia with anisocyt osis, microcytes and mild polychromasia. Clinical correlation and iron studies are recommended to determine etiology as clinically indicated. Invalid Interpretation Code [facility] Comment on above: Order Comment: Order Added by Discern Expert. Performed By: #### 1 5584475, 9730720, 57057842, 6650398, 9056140, 24889744 ####[facility] [address] [place] [address] Auto Diffon 04-04-2023 Basophils/100 WBC (Bld) 0.9 % Normal 0.0-2.0 [facility] Comment on above: Order Comment: Order Added by Discern Expert. Performed By: #### 1 7266524, 6814287, 73825307, 1033566, 9435840, 05360131 ####[facility] [address] [place] [address] Basophils/Leukocytes Auto (Bld) [Pure # fraction] 0.0 E9/L Normal 0.0-0.2 [facility] Comment on above: Order Comment: Order Added by Discern Expert. Performed By: #### 1 0053587, 9043425, 79705704, 8127714, 5737571, 06271520 ####[facility] [address] [place] [address] Eosinophils/100 WBC (Bld) 1.6 % Normal 0.0-8.0 [facility] Comment on above: Order Comment: Order Added by Discern Expert. Performed By: #### 1 0627431, 9069037, 80548067, 1539378, 0805909, 41526290 ####[facility] [address] [place] [address] Eosinophils/Leukocytes Auto (Bld) [Pure # fraction] 0.1 E9/L Normal 0.0-0.5 [facility] Comment on above: Order Comment: Order Added by Cristiano Expert. Performed By: #### 1 6133400, 3821652, 24820158, 9916872, 5853831, 33016763 ####[place] [place] [address] Lymphocytes/100 WBC (Bld) 11.7 % Low 14.0-50.0 [facility] Comment on above: Order Comment: Order Added by Cristiano Expert. Performed By: #### 1 1026431, 9608059, 71313085, 0631510, 9964409, 35990056 ####[facility] [address] [place] [address] Lymphocytes/Leukocytes Auto (Bld) [Pure # fraction] 0.4 E9/L Low 1.0-4.0 [facility] Comment on above: Order Comment: Order Added by Cristiano Expert. Performed By: #### 1 3615274, 1198245, 84860604, 1610960, 7374546, 06797766 ####[address] [place] [address] Monocytes/100 WBC (Bld) 13.1 % Normal 4.0-14.0 [facility] Comment on above: Order Comment: Order Added by Discern Expert. Performed By: #### 1 3342406, 0576910, 00777721, 2718883, 1463293, 26643545 ####[address] [place] [address] Monocytes/Leukocytes Auto (Bld) [Pure # fraction] 0.5 E9/L Normal 0.2-1.0 [facility] Comment on above: Order Comment: Order Added by Discern Expert. Performed By: #### 1 9484984, 3866159, 07543574, 2633437, 2532367, 15041468 ####[address] [place] [address] Neutrophils/100 WBC (Bld) 72.7 % Normal 36.0-75.0 [facility] Comment on above: Order Comment: Order Added by Discern Expert. Performed By: #### 1 9185564, 0314688, 29899509, 0310635, 2550177, 54831993 ####[address] [address] Neutrophils/Leukocytes Auto (Bld) [Pure # fraction] 2.7 E9/L Normal 2.0-7.5 [facility] Comment on above: Order Comment: Order Added by Discern Expert. Performed By: #### 1 7411228, 4206476, 55960811, 8665586, 5836824, 18958432 ####[address] [place] [address] BMPon 04-04-2023 Anion gap [Moles/Vol] 10 mmol/L Normal 6-16 [facility] Comment on above: Performed By: #### 1 0060238, 5284361, 04481976, 5079974, 9130111, 50681366 ####[address] [address] Calcium [Mass/Vol] 9.2 mg/dL Normal 8.9-11.1 [facility] Comment on above: Performed By: #### 1 0606890, 2326316, 00404394, 5479831, 3905434, 79714271 ####[facility] [place] [address] Chloride [Moles/Vol] 102 mmol/L Normal 101-111 [facility] Comment on above: Performed By: #### 1 3310358, 2837839, 38469346, 2916539, 5423886, 77329541 ####[facility] [address] [place] [address] CO2 [Moles/Vol] 28 mmol/L Normal 21-31 [facility] Comment on above: Performed By: #### 1 9208375, 2129991, 33872565, 6781418, 7385362, 86807923 ####[facility] [address] [place] [address] Creatinine [Mass/Vol] 0.5 mg/dL Normal 0.5-1.3 [facility] Comment on above: Performed By: #### 1 7468224, 7552700, 74434271, 5693663, 4699818, 60765856 ####[facility] [address] [place] [address] Glucose [Mass/Vol] 171 mg/dL Normal 55-199 [facility] Comment on above: Result Comment: If t his glucose result represents a fasting glucose, interpretation should refer to the following reference range: 55-99 mg/dL Performed By: #### 1 7278749, 1037334, 64707641, 2201405, 1658986, 57517205 ####[facility] [address] [place] [address] Potassium [Moles/Vol] 3.8 mmol/L Normal 3.5-5.3 [facility] Comment on above: Performed By: #### 1 7920864, 2849766, 77289174, 0195350, 0268620, 68970496 ####[facility] [address] [place] [address] Sodium [Moles/Vol] 136 mmol/L Normal 135-145 [facility] Comment on above: Performed By: #### 1 5349243, 2090610, 96187634, 8023122, 0884435, 89255758 ####[facility] [address] [place] [address] Urea nitrogen [Mass/Vol] 34 mg/dL High 5-21 [facility] Comment on above: Performed By: #### 1 3963734, 9548340, 67098548, 8306571, 0068130, 93224976 ####[facility] [address] [place] [address] Urea nitrogen/Creatinine [Mass ratio] 68 No Units High 10-20 [facility] Comment on above: Performed By: #### 1 6908458, 1719434, 17386438, 0449483, 1248408, 70566104 ####[facility] [address] [place] [address] CBC w/ Auto Diffon Erythrocyte distribution width (RBC) [Ratio] 22.1 % High 10.9-14.2 [facility] Comment on above: Performed By: #### 1 8467972, 6032154, 46889200, 9531862, 5962198, 92062349 ####[address] [place] [address] Hematocrit (Bld) [Volume fraction] 31.2 % Low 37.7-49.0 [facility] Comment on above: Performed By: #### 1 3783254, 8505286, 81532545, 2881929, 6008008, 44013309 ####[facility] [address] [place] [address] Hemoglobin (Bld) [Mass/Vol] 10.1 g/dL Low 13.5-17.5 [facility] Comment on above: Performed By: #### 1 0420972, 7241678, 88675125, 1349121, 9671012, 95407979 ####[facility] [address] [place] [address] MCH (RBC) [Entitic mass] 30.3 pg Normal 27.0-34.0 [facility] Comment on above: Performed By: #### 1 2609633, 0655178, 09941190, 9335263, 5736337, 17109376 ####[address] [address] MCHC (RBC) [Mass/Vol] 32.4 g/dL Normal 31.4-36.0 [facility] Comment on above: Performed By: #### 1 1790124, 4949149, 39701768, 8821920, 9364995, 86546560 ####[place] [address] MCV (RBC) [Entitic vol] 93.6 fL Normal 80.0-100.0 [facility] Comment on above: Performed By: #### 1 4361430, 4939660, 76008021, 8508557, 9288964, 08371708 ####[address] [address] Platelet mean volume (Bld) [Entitic vol] 8.5 fL Normal 6.4-10.8 [facility] Comment on above: Performed By: #### 1 9683078, 5937741, 84918919, 3619669, 4027147, 46285398 ####[address] [address] Platelets (Bld) [#/Vol] 170.0 E9/L Normal 150.0-500.0 [facility] Comment on above: Performed By: #### 1 6975849, 3799630, 19893476, 7076959, 3182559, 04097809 ####[address] [address] RBC (Bld) [#/Vol] 3.3 E12/L Low 4.3-5.9 [facility] Comment on above: Performed By: #### 1 0185073, 5576934, 62883592, 5638429, 8888510, 88293578 ####[address] [address] WBC corrected for nucl RBC Auto (Bld) [#/Vol] 3.7 E9/L Low 4.0-11.0 [facility] Comment on above: Performed By: #### 1 7361977, 0325469, 48422745, 4927449, 6437891, 64786231 ####[facility] [address] [place] [address] CHEMISTRYOrdered By: SYSTEM SYSTEM on 04-04-2023 Anion gap [Moles/Vol] 10 mmol/L Normal 6 - 16 mEq/L [facility] Calcium [Mass/Vol] 9.2 mg/dL Normal 8.9 - 11. 1 mg/dL [facility] Chloride [Moles/Vol] 102 mmol/L Normal 101 - 1 11 mmol/L [facility] CO2 [Moles/Vol] 28 mmol/L Normal 21 - 31 mmol/L [facility] Creatinine [Mass/Vol] 0.5 mg/dL Normal 0.5 - 1.3 mg/dL [facility] GFR/1.73 sq M.predicted among non-blacks MDRD (S/P/Bld) [Vol rate/Area] 106 mL/min/1.73 m2 Normal >=59mL/min/ 1.73 m2 [facility] Chem S Glucose [Mass/Vol] 171 mg/dL Normal 55 - 199 mg/dL [facility] Potassium [Moles/Vol] 3.8 mmol/L Normal 3.5 - 5.3 mmol/L [facility] Sodium [Moles/Vol] 136 mmol/L Normal 135 - 145 mmol/L [facility] Urea nitrogen [Mass/Vol] 34 mg/dL High 5 - 21 mg/dL [facility] Urea nitrogen/Creatinine [Mass ratio] 68 mg/mg High 10 - 20 [facility] Remisol Consent for Treatmenton 03-11 Consent for Treatment [id number]#1.00CD:127 Normal [facility] Consent for Treatment [id number]#1.00CD:127 Normal [facility] HEMATOLOGYOrdered By: Damian Peterson on 04-04-2023 Anisocytosis Ql (Bld) Present (04/04/23 12:24 PM) Normal [facility] HemeManSS Erythrocyte distribution width (RBC) [Ratio] 22.1 % High 10.9 - 14.2 % [facility] HemeAutoSS Hematocrit (Bld) [Volume fraction] 31.2 % Low 37.7 - 49.0 % [facility] HemeAutoSS Hemoglobin (Bld) [Mass/Vol] 10.1 g/dL Low 13.5 - 17.5 gm/dL [facility] HemeAutoSS Hypochromia Auto Ql (Bld) Present (04/04/23 12:24 PM) Normal [facility] HemeManSS MCH (RBC) [Entitic mass] 30.3 pg Normal 27.0 - 34.0 pg [facility] HemeAutoSS MCHC (RBC) [Mass/Vol] 32.4 g/dL Normal 31.4 - 36.0 gm/dL [facility] HemeAutoSS MCV (RBC) [Entitic vol] 93.6 fL Normal 80.0 - 100.0 fL [facility] HemeAutoSS Morphology Jah (Bld) [Interp] See Morphology (04/04/23 12:24 PM) Normal [facility] HemeManSS Platelet mean volume (Bld) [Entitic vol] 8.5 fL Normal 6.4 - 10.8 fL [facility] HemeAutoSS Platelets (Bld) [#/Vol] 170.0 E9/L Normal 150.0 - 500.0 E9/L [facility] HemeAutoSS Polychromasia LM Ql (Bld) Present (04/04/23 12:24 PM) Normal [facility] HemeManSS RBC (Bld) [#/Vol] 3.3 E12/L Low 4.3 - 5.9 E12/L [facility] HemeAutoSS Rouleaux LM Ql (Bld) Present (04/04/23 12:24 PM) Normal [facility] HemeManSS Schistocytes LM Ql (Bld) Present (04/04/23 12:24 PM) Normal [facility] HemeManSS Spherocytes LM Ql (Bld) Present (04/04/23 12:24 PM) Normal [facility] HemeManSS WBC corrected for nucl RBC Auto (Bld) [#/Vol] 3.7 E9/L Low 4.0 - 11.0 E9/L [facility] HemeAutoSS HEMATOLOGYOrdered By: SYSTEM SYSTEM on 04-04-2023 Basophils/100 WBC (Bld) 0.9 % Normal 0.0 - 2.0 % [facility] HemeAutoSS Basophils/Leukocytes Auto (Bld) [Pure # fraction] 0.0 E9/L Normal 0.0 - 0.2 E9/L [facility] HemeAutoSS Eosinophils/100 WBC (Bld) 1.6 % Normal 0.0 - 8.0 % [facility] HemeAutoSS Eosinophils/Leukocytes Auto (Bld) [Pure # fraction] 0.1 E9/L Normal 0.0 - 0.5 E9/L [facility] HemeAutoSS Lymphocytes/100 WBC (Bld) 11.7 % Low 14.0 - 50.0 % [facility] HemeAutoSS Lymphocytes/Leukocytes Auto (Bld) [Pure # fraction] 0.4 E9/L Low 1.0 - 4.0 E9/L [facility] HemeAutoSS Monocytes/100 WBC (Bld) 13.1 % Normal 4.0 - 14.0 % [facility] HemeAutoSS Monocytes/Leukocytes Auto (Bld) [Pure # fraction] 0.5 E9/L Normal 0.2 - 1.0 E9/L [facility] HemeAutoSS Neutrophils/100 WBC (Bld) 72.7 % Normal 36.0 - 75.0 % [facility] HemeAutoSS Neutrophils/Leukocytes Auto (Bld) [Pure # fraction] 2.7 E9/L Normal 2.0 - 7.5 E9/L [facility] HemeAutoSS Heart and Vascular Office/Cl inic Noteon 04-04-2023 Heart and Vascular Office/Clinic Note Normal [facility] Comment on above: Result Comment: Elec tronically Signed By: Vickey WISE, Erwin FOtilia\.br\Date and Time Signed: 04/04/23 11:48 EDT Morphon 04-04-2023 Anisocytosis Ql (Bld) Present Normal [facility] Comment on above: Order Comment: Order Added by Discern Expert. Performed By: #### 1 5643151, 0276932, 42933337, 7119483, 6910121, 99404634 ####[facility] [address] [place] [address] Hypochromia Auto Ql (Bld) Present Normal [facility] Comment on above: Order Comment: Order Added by Discern Expert. Performed By: #### 1 0024423, 4260969, 97658828, 7970913, 6790926, 51178440 ####[facility] [address] [place] [address] Morphology Jah (Bld) [Interp] See Morphology Normal [facility] Comment on above: Order Comment: Order Added by Discern Expert. Performed By: #### 1 1110762, 3132026, 98130643, 7852981, 3026507, 51108127 ####[facility] [address] [place] [address] Polychromasia LM Ql (Bld) Present Normal [facility] Comment on above: Order Comment: Order Added by Discern Expert. Performed By: #### 1 6476347, 8909303, 53984118, 8059506, 5899125, 31559144 ####[facility] [address] [place] [address] Rouleaux LM Ql (Bld) Present Normal [facility] Comment on above: Order Comment: Order Added by Discern Expert. Performed By: #### 1 6826250, 3657432, 66593963, 2686567, 4505362, 09983342 ####[facility] [address] [place] [address] Schistocytes LM Ql (Bld) Present Normal [facility] Comment on above: Order Comment: Order Added by Discern Expert. Performed By: #### 1 6748638, 8600246, 38061411, 0936215, 4048211, 09497694 ####[facility] [address] [place] [address] Spherocytes LM Ql (Bld) Present Normal [facility] Comment on above: Order Comment: Order Added by Discern Expert. Performed By: #### 1 2897727, 8255702, 65166594, 2533135, 1057519, 05000538 ####[facility] [address] [place] [address] Outside Progress Noteon 06- Outside Progress Note [id number]#1.00CD:127 Normal [facility] eGFRon 04-04-2023 GFR/1.73 sq M.predicted among non-blacks MDRD (S/P/Bld) [Vol rate/Area] 106 mL/min/1.73 m2 Normal >=59 [facility] Comment on above: Order Comment: Order added by Discern Expert. Result Comment: Fluid Pump Operator alen kidney disease could be indicated at eGFR's of less than 60 mL/min/1.73m2. Kidney failure is indicated at less than 15 mL/min/1.73m2. Performed By: #### 1 3560608, 6273246, 15387395, 7612910, 0255162, 88152722 ####[facility] [address] [place] [address] Coding Queryon 03-17-2023 Coding Query [facility] Consent for Treatmenton Consent for Treatment [id number]#1.00CD:127 Normal [facility] Heart and Vascular Office/Cl inic Noteon 03-17-2023 Heart and Vascular Office/Clinic Note Normal [facility] Comment on above: Result Comment: Elec tronically Signed By: Vickey WISE, Erwin [place]\.br\Date and Time Signed: 03/17/23 14:05 EDT Progress Note-Physicianon Progress Note-Physician [id number]#1.00CD:127 Normal [facility] Coding Queryon 03-15-2023 Coding Query Normal [facility] Progress Note-Physicianon Progress Note-Physician Normal [facility] Comment on above: Result Comment: Elec tronically Signed By: Aiden Campa MD\.br\Date and Time Signed: 03/15/23 20:46 EDT C Urineon 03-12-2023 Bacteria identified Cx Nom (U) Normal [facility] Comment on above: Performed By: #### 1 0557426, 0696097 ####[facility] [address] [place] [address] IntraOperative Documentson 0 03-11-2023 IntraOperative Documents [id number]#1.00CD:127 Normal [facility] .Interpretation:on 3 HCV Ab IA Ql Comment Invalid Interpretation Code [facility] Comment on above: Result Comment: Not infected with HCV unless early or acute infection issuspected (which may be delayed in an immunocompromisedindividual), or other evidence exists to indicate HCV infection.Performed at: [facility] [address] [place], [place] [id number] PhD Azar Luevano Performed By: #### 2 [id number], [id number], 314391165, 8283113 ####[facility] [address] [place] [address] CHEMISTRYOrdered By: Lab ROP User on 03-10-2023 Glucose [Mass/Vol] 140 mg/dL High 55 - 99 mg/dL [facility] POC Subsection Comment on above: Result Comment: Nuno aranda RN/ POC Device SN [id number] Invalid Interpretation Code FT POC Subsection POC User ID [id number] Invalid Interpretation Code FT POC Subsection POC Username JOSE LUIS CAMPBELL Invalid Interpretation Code [facility] POC Subsection Glucose [Mass/Vol] 116 mg/dL High 55 - 99 mg/dL [facility] POC Subsection Comment on above: Result Comment: Nuno aranda RN/ POC Device SN [id number] Invalid Interpretation Code FT POC Subsection POC User ID [id number] Invalid Interpretation Code [facility] POC Subsection POC Username ADRIAN JOSE LUIS Invalid Interpretation Code [facility] POC Subsection CHEMISTRYOrdered By: SYSTEM SYSTEM on 03-10-2023 Anion gap [Moles/Vol] 9 mmol/L Normal 6 - 16 mEq/L [facility] Chloride [Moles/Vol] 102 mmol/L Normal 101 - 1 11 mmol/L [facility] CO2 [Moles/Vol] 29 mmol/L Normal 21 - 31 mmol/L [facility] Magnesium [Mass/Vol] 1.8 mg/dL Normal 1.3 - 2 .4 mg/dL [facility] Potassium [Moles/Vol] 3.5 mmol/L Normal 3.5 - 5.3 mmol/L [facility] Remisol Sodium [Moles/Vol] 136 mmol/L Normal 135 - 145 mmol/L [facility] Remisol Capillary Glucose POCon Glucose [Mass/Vol] 140 mg/dL High 55-99 [facility] Comment on above: Result Comment: Nuno MARIN Performed By: #### 2 [id number] ####[facility] [address] [place] [address] Glucose [Mass/Vol] 116 mg/dL High 55-99 [facility] Comment on above: Result Comment: Nuno MARIN Performed By: #### 2 [id number] ####[address] [address] Glucose [Mass/Vol] 83 mg/dL Normal - [facility] Comment on above: Result Comment: Nuno MARIN Performed By: #### 2 [id number] ####[facility] [address] [place] [address] Consent for Blood Transfusio non 03-10-2023 Consent for Blood Transfusion [id number]#1.00CD:127 Normal [facility] Discharge Instructionson Discharge Instructions [id number]#1.00CD:127 Normal [facility] Discharge Note-Nursingon Discharge Note-Nursing Normal [facility] HCV Antibody RFX to Quant PC Chai 03-10-2023 HCV IgG IA Ql Non-Reactive Invalid Interpretation Code Non Reactive [facility] Comment on above: Result Comment: Perf ormed at: [facility] [address] [id number] PhD Azar Luevano Performed By: #### 2 [id number], [id number], 560458934, 2726688 ####[facility] [address] [place] [address] Hep Bs Agon 03-10-2023 HBV surface Ag IA Ql Negative Invalid Interpretation Code Negative [facility] Comment on above: Result Comment: Perf ormed at: CB [facility] [address] [place], [place] [id number] PhD Azar Luevano Performed By: #### 2 [id number], [id number], 389189637, 9465586 ####[facility] [address] [place] [address] Inpatient Clinical Summaryon 03-10-2023 Inpatient Clinical Summary Normal [facility] Inpatient Patient Summaryon 03-10-2023 Inpatient Patient Summary Normal [facility] Interdisciplinary Note - Michelet e Manageron 03-10-2023 Interdisciplinary Note - Resident Care Aide Normal [facility] Comment on above: Result Comment: Elec tronically Signed By: Sonia Morejon\.br\Date and Time Signed: 03/10/23 14:25 EDT Lyteson 03-10-2023 Anion gap [Moles/Vol] 9 mmol/L Normal 6-16 [facility] Comment on above: Order Comment: line packet sent up to floor...[facility] 03/10/2023 04:24:28 EDT Performed By: #### 2 321006, 5191105 ####[facility] [address] [place] [address] Chloride [Moles/Vol] 102 mmol/L Normal 101-111 [place] Comment on above: Order Comment: line packet sent up to floor...[facility] 03/10/2023 04:24:28 EDT Performed By: #### 2 433898, 4631320 ####[facility] [address] [place] [address] CO2 [Moles/Vol] 29 mmol/L Normal 21-31 [facility] Comment on above: Order Comment: line packet sent up to floor...[facility] 03/10/2023 04:24:28 EDT Performed By: #### 2 397549, 4009555 ####[facility] [address] [place] [address] Potassium [Moles/Vol] 3.5 mmol/L Normal 3.5-5.3 [facility] Comment on above: Order Comment: line packet sent up to floor...[facility] 03/10/2023 04:24:28 EDT Performed By: #### 2 571432, 6204749 ####[facility] [address] [place] [address] Sodium [Moles/Vol] 136 mmol/L Normal 135-145 [facility] Comment on above: Order Comment: line packet sent up to floor...[facility] 03/10/2023 04:24:28 EDT Performed By: #### 2 [id number], [id number] ####[facility] [address] [place] [address] Magnesiumon 03-10-2023 Magnesium [Mass/Vol] 1.8 mg/dL Normal 1.3-2.4 [place] Comment on above: Performed By: #### 2 [id number], [id number] ####[facility] [address] [place] [address] Progress Note-Nurseon 2022 Progress Note-Nurse Late Entry Pt's spouse took home all belongings except for the wound vac in preparation for discharge on 03/10 @ 1253. Normal [facility] Transfer Documentson 023 Transfer Documents [id number] Normal [facility] UA With Cult Reflexon 2022 Bacteria LM Ql (Urine sed) TRACE Normal Trace [facility] Comment on above: Order Comment: Urina ry Catheter Insertion triggered Urinalysis With Culture Reflex order by discern. Performed By: #### 1 [id number], [id number] ####[facility] [address] [place] [address] Bilirubin Ql (U) Negative Normal Negative [facility] Comment on above: Order Comment: Urina ry Catheter Insertion triggered Urinalysis With Culture Reflex order by discern. Performed By: #### 1 [id number], [id number] ####[facility] [address] [place] [address] Clarity (U) CLEAR Normal Clear [facility] Comment on above: Order Comment: Urina ry Catheter Insertion triggered Urinalysis With Culture Reflex order by discern. Performed By: #### 1 [id number], [id number] ####[address] [address] Color (U) YELLOW Normal Yellow [facility] Comment on above: Order Comment: Urina ry Catheter Insertion triggered Urinalysis With Culture Reflex order by discern. Performed By: #### 1 [id number], [id number] ####[place] [id number] Epithelial cells.squamous LM.HPF (Urine sed) [#/Area] 0-2 Normal 0-2 [facility] Comment on above: Order Comment: Urina ry Catheter Insertion triggered Urinalysis With Culture Reflex order by discern. Performed By: #### 1 [id number], [id number] ####[place] [address] Glucose Test strip (U) [Mass/Vol] Negative Normal Negative [facility] Comment on above: Order Comment: Urina ry Catheter Insertion triggered Urinalysis With Culture Reflex order by discern. Performed By: #### 1 7973883, [id number] ####[place] [id number] Hemoglobin Ql (U) 1+ Abnormal Negative [facility] Comment on above: Order Comment: Urina ry Catheter Insertion triggered Urinalysis With Culture Reflex order by discern. Performed By: #### 1 [id number], 7993731 ####[address] [address] Ketones (U) [Mass/Vol] Negative Normal Negative [facility] Comment on above: Order Comment: Urina ry Catheter Insertion triggered Urinalysis With Culture Reflex order by discern. Performed By: #### 1 9872788, 3397605 ####[address] [address] Ganado.plasma/Ganado .RBC (Bld) [Mass ratio] 4-20 Normal 0-3 [facility] Comment on above: Order Comment: Urina ry Catheter Insertion triggered Urinalysis With Culture Reflex order by discern. Performed By: #### 1 2091665, 5453494 ####[address] [address] Mucus Ql (Urine sed) TRACE Normal [facility] Comment on above: Order Comment: Urina ry Catheter Insertion triggered Urinalysis With Culture Reflex order by discern. Performed By: #### 1 [id number], 7963086 ####[address] [address] Nitrite Ql (U) Negative Normal Negative [facility] Comment on above: Order Comment: Urina ry Catheter Insertion triggered Urinalysis With Culture Reflex order by discern. Performed By: #### 1 [id number], 5837193 ####[address] [address] pH (U) 8.5 [pH] Invalid Interpretation Code 5.0-9.0 [facility] Comment on above: Order Comment: Urina ry Catheter Insertion triggered Urinalysis With Culture Reflex order by discern. Performed By: #### 1 [id number], 6489644 ####[address] [address] Protein (U) [Mass/Vol] TRACE Abnormal Negative [facility] Comment on above: Order Comment: Urina ry Catheter Insertion triggered Urinalysis With Culture Reflex order by discern. Performed By: #### 1 6106444, [id number] ####[address] [address] Specific gravity (U) [Rel density] 1.015 Invalid Interpretation Code 1.005-1.030 [facility] Comment on above: Order Comment: Urina ry Catheter Insertion triggered Urinalysis With Culture Reflex order by discern. Performed By: #### 1 [id number], 0525696 ####[address] [address] Type of Urine collection method Boles Normal [facility] Comment on above: Order Comment: Urina ry Catheter Insertion triggered Urinalysis With Culture Reflex order by discern. Performed By: #### 1 3069351, 3358129 ####[address] [address] Urobilinogen Qn (U) 0.2 {Mercedes'U}/dL Normal 0.0-1.0 [facility] Comment on above: Order Comment: Urina ry Catheter Insertion triggered Urinalysis With Culture Reflex order by discern. Performed By: #### 1 [id number], 2165574 ####[place] [id number] WBC Auto Ql (U) 1+ Abnormal Negative [facility] Comment on above: Order Comment: Urina ry Catheter Insertion triggered Urinalysis With Culture Reflex order by discern. Performed By: #### 1 [id number], [id number] ####[place] [address] WBC LM.HPF (Urine sed) [#/Area] 6-15 Abnormal 0-5 [facility] Comment on above: Order Comment: Urina ry Catheter Insertion triggered Urinalysis With Culture Reflex order by discern. Performed By: #### 1 4367963, 7961633 ####[place] [address] URINALYSISOrdered By: Fabi Massey on 03-10-2023 Bacteria LM Ql (Urine sed) Trace /HPF Normal Trace/HPF [facility] UA Auto SS Bilirubin Ql (U) Negative (03/10/23 12:33 PM) Normal Negative [facility] UA Auto SS Clarity (U) Clear (03/10/23 12:33 PM) Normal Clear [facility] UA Auto SS Color (U) Yellow (03/10/23 12:33 PM) Normal Yellow [facility] UA Auto SS Epithelial cells.squamous LM.HPF (Urine sed) [#/Area] 0-2 /HPF Normal 0-2/HPF [facility] UA Auto SS Glucose Test strip (U) [Mass/Vol] Negative (03/10/23 12:33 PM) Normal Negative [facility] UA Auto SS Hemoglobin Ql (U) 1+ *ABN* (03/10/23 12:33 PM) Invalid Interpretation Code Negative [facility] UA Auto SS Ketones (U) [Mass/Vol] Negative (03/10/23 12:33 PM) Normal Negative [facility] UA Auto SS Ganado.plasma/Ganado .RBC (Bld) [Mass ratio] 4-20 /HPF Normal 0-3/HPF [facility] UA Auto SS Mucus Ql (Urine sed) Trace (03/10/23 12:33 PM) Normal [facility] UA Auto SS Nitrite Ql (U) Negative (03/10/23 12:33 PM) Normal Negative [facility] UA Auto SS pH (U) 8.5 *NA* (03/10/23 12:33 PM) Invalid Interpretation Code 5.0 - 9.0 [facility] UA Auto SS Protein (U) [Mass/Vol] Trace *ABN* (03/10/23 12:33 PM) Invalid Interpretation Code Negative [facility] UA Auto SS Specific gravity (U) [Rel density] 1.015 *NA* (03/10/23 12:33 PM) Invalid Interpretation Code 1.005 - 1.030 [facility] UA Auto SS UA Spec Desc Boles (03/10/23 12:33 PM) Normal [facility] UA Auto SS Urobilinogen Qn (U) 0.4170918 {Mercedes'U}/dL Normal 0.0 - 1.0 EU/dL [facility] UA Auto SS WBC Auto Ql (U) 1+ *ABN* (03/10/23 12:33 PM) Invalid Interpretation Code Negative [facility] UA Auto SS WBC LM.HPF (Urine sed) [#/Area] 6-15 /HPF Invalid Interpretation Code 0-5/HPF [facility] UA Auto SS CHEMISTRYOrdered By: Lab ROP User on 03-09-2023 Glucose [Mass/Vol] 83 mg/dL Normal 55 - 99 mg/dL [facility] POC Subsection Comment on above: Result Comment: Nuno MARIN POC Device SN [id number] Invalid Interpretation Code [facility] POC Subsection POC User ID [id number] Invalid Interpretation Code [facility] POC Subsection POC Username PARTHA JULIO CÉSAR Invalid Interpretation Code [facility] POC Subsection Capillary Glucose POCon 02-09 Glucose [Mass/Vol] 98 mg/dL Normal 55-99 [facility] Comment on above: Result Comment: Nuno MARIN Performed By: #### 2 [id number] ####[facility] [address] [place] [address] Glucose [Mass/Vol] 219 mg/dL High 55-99 [facility] Comment on above: Result Comment: Nuno aranda RN/ Performed By: #### 2 [id number] ####[facility] [address] [place] [address] Glucose [Mass/Vol] 130 mg/dL High 55-99 [facility] Comment on above: Result Comment: Nuno MARIN Performed By: #### 2 [id number] ####[facility] [address] [place] [address] Interdisciplinary Note - Michelet e Manageron 03-09-2023 Interdisciplinary Note - Resident Care Aide [facility] Comment on above: Result Comment: Elec tronically Signed By: Sonia Morejon\.br\Date and Time Signed: 03/09/23 12:18 EDT Progress Note-Physicianon Progress Note-Physician [facility] Comment on above: Result Comment: Elec tronically Signed By: Anabela DONIS\.br\Date and Time Signed: 03/09/23 16:26 EDT\.br\Electronically Co-Signed By: West Shukla MD\.br\Date and Time Co-Signed: 03/09/23 17:57 EDT UA With Cult Reflexon 2022 Type of Urine collection method Clean Catch Normal [facility] Comment on above: Order Comment: Urina ry Catheter Insertion triggered Urinalysis With Culture Reflex order by discern. Performed By: #### 1 [id number] ####[facility] [address] [place] [address] Bacteria LM Ql (Urine sed) TRACE Normal Trace [facility] Comment on above: Order Comment: Urina ry Catheter Insertion triggered Urinalysis With Culture Reflex order by discern. Performed By: #### 1 [id number] ####[facility] [address] [place] [address] Bilirubin Ql (U) Negative Normal Negative [facility] Comment on above: Order Comment: Urina ry Catheter Insertion triggered Urinalysis With Culture Reflex order by discern. Performed By: #### 1 [id number] ####[facility] [address] [place] [address] Clarity (U) CLEAR Normal Clear [facility] Comment on above: Order Comment: Urina ry Catheter Insertion triggered Urinalysis With Culture Reflex order by discern. Performed By: #### 1 [id number] ####[address] [address] Color (U) YELLOW Normal Yellow [facility] Comment on above: Order Comment: Urina ry Catheter Insertion triggered Urinalysis With Culture Reflex order by discern. Performed By: #### 1 [id number] ####[address] [address] Epithelial cells.squamous LM.HPF (Urine sed) [#/Area] 0-2 Normal 0-2 [facility] Comment on above: Order Comment: Urina ry Catheter Insertion triggered Urinalysis With Culture Reflex order by discern. Performed By: #### 1 [id number] ####[facility] [address] [place] [address] Glucose Test strip (U) [Mass/Vol] Negative Normal Negative [facility] Comment on above: Order Comment: Urina ry Catheter Insertion triggered Urinalysis With Culture Reflex order by discern. Performed By: #### 1 [id number] ####[address] [address] Hemoglobin Ql (U) 1+ Abnormal Negative [facility] Comment on above: Order Comment: Urina ry Catheter Insertion triggered Urinalysis With Culture Reflex order by discern. Performed By: #### 1 [id number] ####[facility] [address] [place] [address] Ketones (U) [Mass/Vol] Negative Normal Negative [facility] Comment on above: Order Comment: Urina ry Catheter Insertion triggered Urinalysis With Culture Reflex order by discern. Performed By: #### 1 [id number] ####[address] [address] [place].plasma/Ganado .RBC (Bld) [Mass ratio] 0-3 Normal 0-3 [facility] Comment on above: Order Comment: Urina ry Catheter Insertion triggered Urinalysis With Culture Reflex order by discern. Performed By: #### 1 [id number] ####[address] [address] Nitrite Ql (U) Negative Normal Negative [facility] Comment on above: Order Comment: Urina ry Catheter Insertion triggered Urinalysis With Culture Reflex order by discern. Performed By: #### 1 [id number] ####[address] [address] pH (U) 7.5 [pH] Invalid Interpretation Code 5.0-9.0 [facility] Comment on above: Order Comment: Urina ry Catheter Insertion triggered Urinalysis With Culture Reflex order by discern. Performed By: #### 1 [id number] ####[address] [address] Protein (U) [Mass/Vol] Negative Normal Negative [facility] Comment on above: Order Comment: Urina ry Catheter Insertion triggered Urinalysis With Culture Reflex order by discern. Performed By: #### 1 [id number] ####[address] [address] Specific gravity (U) [Rel density] 1.010 Invalid Interpretation Code 1.005-1.030 [facility] Comment on above: Order Comment: Urina ry Catheter Insertion triggered Urinalysis With Culture Reflex order by discern. Performed By: #### 1 [id number] ####[address] [address] Urobilinogen Qn (U) 0.2 {Mercedes'U}/dL Normal 0.0-1.0 [facility] Comment on above: Order Comment: Urina ry Catheter Insertion triggered Urinalysis With Culture Reflex order by discern. Performed By: #### 1 3403910 ####[address] [address] WBC Auto Ql (U) Negative Normal Negative [facility] Comment on above: Order Comment: Urina ry Catheter Insertion triggered Urinalysis With Culture Reflex order by discern. Performed By: #### 1 [id number] ####[facility] [address] [place] [address] WBC LM.HPF (Urine sed) [#/Area] 0-5 Normal 0-5 [facility] Comment on above: Order Comment: Urina ry Catheter Insertion triggered Urinalysis With Culture Reflex order by discern. Performed By: #### 1 [id number] ####[facility] [address] [place] [address] URINALYSISOrdered By: Tommy Gerardo on 03-09-2023 Bacteria LM Ql (Urine sed) Trace /HPF Normal Trace/HPF [facility] UA Auto SS Bilirubin Ql (U) Negative (03/09/23 6:50 PM) Normal Negative [facility] UA Auto SS Clarity (U) Clear (03/09/23 6:50 PM) Normal Clear [facility] UA Auto SS Color (U) Yellow (03/09/23 6:50 PM) Normal Yellow [facility] UA Auto SS Epithelial cells.squamous LM.HPF (Urine sed) [#/Area] 0-2 /HPF Normal 0-2/HPF [facility] UA Auto SS Glucose Test strip (U) [Mass/Vol] Negative (03/09/23 6:50 PM) Normal Negative [facility] UA Auto SS Hemoglobin Ql (U) 1+ *ABN* (03/09/23 6:50 PM) Invalid Interpretation Code Negative [facility] UA Auto SS Ketones (U) [Mass/Vol] Negative (03/09/23 6:50 PM) Normal Negative [facility] UA Auto SS Ganado.plasma/Ganado .RBC (Bld) [Mass ratio] 0-3 /HPF Normal 0-3/HPF [facility] UA Auto SS Nitrite Ql (U) Negative (03/09/23 6:50 PM) Normal Negative [facility] UA Auto SS pH (U) 7.5 *NA* (03/09/23 6:50 PM) Invalid Interpretation Code 5.0 - 9.0 [facility] UA Auto SS Protein (U) [Mass/Vol] Negative (03/09/23 6:50 PM) Normal Negative [facility] UA Auto SS Specific gravity (U) [Rel density] 1.010 *NA* (03/09/23 6:50 PM) Invalid Interpretation Code 1.005 - 1.030 [facility] UA Auto SS UA Spec Desc Clean Catch (03/09/23 6:50 PM) Normal [facility] UA Auto SS Urobilinogen Qn (U) 0.4128526 {Mercedes'U}/dL Normal 0.0 - 1.0 EU/dL [facility] UA Auto SS WBC Auto Ql (U) Negative (03/09/23 6:50 PM) Normal Negative [facility] UA Auto SS WBC LM.HPF (Urine sed) [#/Area] 0-5 /HPF Normal 0-5/HPF [facility] UA Auto SS CHEMISTRYOrdered By: SYSTEM SYSTEM on 03-08-2023 Anion gap [Moles/Vol] 10 mmol/L Normal 6 - 16 mEq/L [facility] Remisol Chloride [Moles/Vol] 103 mmol/L Normal 101 - 1 11 mmol/L [facility] Remisol CO2 [Moles/Vol] 27 mmol/L Normal 21 - 31 mmol/L [facility] Remisol Potassium [Moles/Vol] 3.6 mmol/L Normal 3.5 - 5.3 mmol/L [facility] Remisol Sodium [Moles/Vol] 136 mmol/L Normal 135 - 145 mmol/L [facility] Remisol Capillary Glucose POCon 02-09 Glucose [Mass/Vol] 154 mg/dL High 55-99 [facility] Comment on above: Result Comment: Nuno MARIN Performed By: #### 2 [id number] ####[facility] [address] [place] [address] Glucose [Mass/Vol] 108 mg/dL High 55-[address] [place] [address] Comment on above: Result Comment: Nuno MARIN Performed By: #### 2 [id number] ####[facility] [address] [place] [address] Glucose [Mass/Vol] 153 mg/dL High 55-99 [facility] Comment on above: Result Comment: Nuno MARIN Performed By: #### 2 [id number] ####[facility] [address] [place] [address] Glucose [Mass/Vol] 144 mg/dL High 55-99 [facility] Comment on above: Result Comment: Nuno MARIN Performed By: #### 2 [id number] ####[facility] [address] [place] [address] HIV-1/2 Ag/Ab Comboon 2022 HIV 1+2 Ab and HIV1 p24 Ag IA.rapid Nom (S/P/Bld) Negative Normal Negative [facility] Comment on above: Performed By: #### 2 [id number], [id number], [id number], [id number] ####[facility] [address] [place] [address] HIV 1+2 Ab+HIV1 p24 Ag IA Ql Non-Reactive Normal Non-Reactiv e [facility] Comment on above: Performed By: #### 2 [id number], [id number], [id number], 6523062 ####[facility] [address] [place] [address] HIV Combo Internal Control Line Reactive Normal Reactive [facility] Comment on above: Performed By: #### 2 [id number], [id number], [id number], [id number] ####[facility] [address] [place] [address] HIV-1/2 Ag/Ab Combo Negative for HIV-1 a nd/or HIV-2 antibodies and HIV-1 p24 antigen. Normal Negative [facility] Interdisciplinary Note - Michelet e Manageron 03-08-2023 Interdisciplinary Note - Resident Care Aide Normal [facility] Comment on above: Result Comment: Elec tronically Signed By: Yane Escobar\Date and Time Signed: 03/08/23 12:57 EDT Interdisciplinary Note - Alf singon 03-08-2023 Interdisciplinary Note - Nursing Normal [facility] Lyteson 03-08-2023 Anion gap [Moles/Vol] 10 mmol/L Normal 6-16 [facility] Comment on above: Order Comment: yolanda azar given to jesi Casarez [id number] 03/08/2023 09:35:59 EDT Performed By: #### 2 [id number] ####[facility] [address] [place] [address] Chloride [Moles/Vol] 103 mmol/L Normal 101-111 [place] Comment on above: Order Comment: packe t given to jesi [email or web address] 03/08/2023 09:35:59 EDT Performed By: #### 2 [id number] ####[facility] [address] [place] [address] CO2 [Moles/Vol] 27 mmol/L Normal 21-31 [facility] Comment on above: Order Comment: packe t given to jesi hughes002 03/08/2023 09:35:59 EDT Performed By: #### 2 [id number] ####[facility] [address] [place] [address] Potassium [Moles/Vol] 3.6 mmol/L Normal 3.5-5.3 [facility] Comment on above: Order Comment: packe t given to jesi hughes002 03/08/2023 09:35:59 EDT Performed By: #### 2 [id number] ####[facility] [address] [place] [address] Sodium [Moles/Vol] 136 mmol/L Normal 135-145 [facility] Comment on above: Order Comment: packe t given to jesi hughes002 03/08/2023 09:35:59 EDT Performed By: #### 2 [id number] ####[facility] [address] [place] [address] Physician Orderon 03-08-2023 Physician Order [id number]:127 Normal [facility] Progress Note-Physicianon Progress Note-Physician Normal [facility] Comment on above: Result Comment: Elec tronically Signed By: Anabela DONIS\.br\Date and Time Signed: 03/08/23 15:57 EDT\.br\Electronically Co-Signed By: West Shukla MD\.br\Date and Time Co-Signed: 03/08/23 16:14 EDT Progress Note-Physician Normal [facility] Comment on above: Result Comment: Elec tronically Signed By: Chong Coe M.D\.br\Date and Time Signed: 03/08/23 12:34 EDT Progress Note-Physician Normal [facility] Comment on above: Result Comment: Elec tronically Signed By: Lnyda Carrero RN\.br\Date and Time Signed: 03/08/23 09:30 EDT\.br\Electronically Co-Signed By: Benji Russell DO\.br\Date and Time Co-Signed: 03/08/23 10:10 EDT Progress Note-Physician Normal [facility] Comment on above: Result Comment: Elec tronically Signed By: MD Siri, Jose F Payan\.br\Date and Time Signed: 03/08/23 08:47 EDT Progress Note-Physician Normal [facility] Comment on above: Result Comment: Elec tronically Signed By: MD Siri, Jose F Payan\.br\Date and Time Signed: 03/08/23 08:46 EDT Auto Diffon 03-07-2023 Basophils/100 WBC (Bld) 0.3 % Normal 0.0-2.0 [facility] Comment on above: Order Comment: Order Added by Discern Expert. Performed By: #### 2 [id number], 8215120, 6618432, [id number] ####[facility] [address] [place] [address] Basophils/Leukocytes Auto (Bld) [Pure # fraction] 0.0 E9/L Normal 0.0-0.2 [facility] Comment on above: Order Comment: Order Added by Discern Expert. Performed By: #### 2 659984, 9937874, 1220191, [id number] ####[facility] [address] [place] [address] Eosinophils/100 WBC (Bld) 1.1 % Normal 0.0-8.0 [facility] Comment on above: Order Comment: Order Added by Discern Expert. Performed By: #### 2 877000, 2260651, 4767582, [id number] ####[facility] [address] [place] [address] Eosinophils/Leukocytes Auto (Bld) [Pure # fraction] 0.1 E9/L Normal 0.0-0.5 [facility] Comment on above: Order Comment: Order Added by Discern Expert. Performed By: #### 2 822519, 5489916, 8163380, [id number] ####[address] [address] Lymphocytes/100 WBC (Bld) 5.5 % Low 14.0-50.0 [facility] Comment on above: Order Comment: Order Added by Discern Expert. Performed By: #### 2 732475, 1320270, 9685095, [id number] ####[address] [address] Lymphocytes/Leukocytes Auto (Bld) [Pure # fraction] 0.3 E9/L Low 1.0-4.0 [facility] Comment on above: Order Comment: Order Added by Discern Expert. Performed By: #### 2 381127, 0054848, 1833010, [id number] ####[address] [address] Monocytes/100 WBC (Bld) 10.4 % Normal 4.0-14.0 [facility] Comment on above: Order Comment: Order Added by Discern Expert. Performed By: #### 2 634755, 6165508, 5164186, [id number] ####[address] [address] Monocytes/Leukocytes Auto (Bld) [Pure # fraction] 0.5 E9/L Normal 0.2-1.0 [facility] Comment on above: Order Comment: Order Added by Discern Expert. Performed By: #### 2 954398, 9814066, 8218354, [id number] ####[address] [address] Neutrophils/100 WBC (Bld) 82.7 % High 36.0-75.0 [facility] Comment on above: Order Comment: Order Added by Discern Expert. Performed By: #### 2 341476, 3115259, 4112322, [id number] ####[facility] [address] [place] [address] Neutrophils/Leukocytes Auto (Bld) [Pure # fraction] 4.1 E9/L Normal 2.0-7.5 [facility] Comment on above: Order Comment: Order Added by Discern Expert. Performed By: #### 2 628334, 7877719, 8622020, 07915506 ####[facility] [address] [place] [address] BMPon 03-07-2023 Anion gap [Moles/Vol] 8 mmol/L Normal 6-16 [facility] Comment on above: Performed By: #### 2 163293, 2576537, 6132212, 67179814 ####[facility] [address] [place] [address] Calcium [Mass/Vol] 8.8 mg/dL Low 8.9-11.1 [facility] Comment on above: Performed By: #### 2 392946, 4147189, 5176293, 93130207 ####[facility] [address] [place] [address] Chloride [Moles/Vol] 107 mmol/L Normal 101-111 [place] Comment on above: Performed By: #### 2 265040, 9315791, 2563604, 40378927 ####[facility] [address] [place] [address] CO2 [Moles/Vol] 28 mmol/L Normal 21-31 [facility] Comment on above: Performed By: #### 2 205405, 1898583, 0470903, 07054888 ####[facility] [address] [place] [address] Creatinine [Mass/Vol] 0.6 mg/dL Normal 0.5-1.3 [facility] Comment on above: Performed By: #### 2 718470, 2249484, 4726567, 21654458 ####[facility] [address] [place] [address] Glucose [Mass/Vol] 136 mg/dL Normal 55-199 [facility] Comment on above: Result Comment: If t his glucose result represents a fasting glucose, interpretation should refer to the following reference range: 55-99 mg/dL Performed By: #### 2 136705, 3678826, 2063474, 34707674 ####[facility] [address] [place] [address] Potassium [Moles/Vol] 3.1 mmol/L Low 3.5-5.3 [facility] Comment on above: Performed By: #### 2 376764, 4813239, 0282885, 79287333 ####[facility] [address] [place] [address] Sodium [Moles/Vol] 140 mmol/L Normal 135-145 [facility] Comment on above: Performed By: #### 2 805940, 6810531, 2895751, 62728977 ####[facility] [address] [place] [address] Urea nitrogen [Mass/Vol] 19 mg/dL Normal 5-21 [facility] Comment on above: Performed By: #### 2 906196, 0788583, 8930617, 71236762 ####[facility] [address] [place] [address] Urea nitrogen/Creatinine [Mass ratio] 32 No Units High 10-20 [facility] Comment on above: Performed By: #### 2 828749, 7273278, 9893411, 02235277 ####[facility] [address] [place] [address] CBC w/ Auto Diffon 3 Erythrocyte distribution width (RBC) [Ratio] 19.2 % High 10.9-14.2 [facility] Comment on above: Performed By: #### 2 404174, 1820762, 3276143, 62586613 ####[facility] [address] [place] [address] Hematocrit (Bld) [Volume fraction] 27.3 % Low 37.7-49.0 [facility] Comment on above: Performed By: #### 2 007246, 8004454, 5381834, 87466060 ####[address] [address] Hemoglobin (Bld) [Mass/Vol] 8.8 g/dL Low 13.5-17.5 [facility] Comment on above: Performed By: #### 2 840299, 0131782, 4812994, 98990044 ####[address] [address] MCH (RBC) [Entitic mass] 27.4 pg Normal 27.0-34.0 [facility] Comment on above: Performed By: #### 2 716896, 7908098, 9660366, 18780619 ####[address] [address] MCHC (RBC) [Mass/Vol] 32.2 g/dL Normal 31.4-36.0 [facility] Comment on above: Performed By: #### 2 364801, 0987825, 6663784, 65784000 ####[address] [address] MCV (RBC) [Entitic vol] 85.0 fL Normal 80.0-100.0 [facility] Comment on above: Performed By: #### 2 887015, 3063727, 8013349, 63620122 ####[address] [address] Platelet mean volume (Bld) [Entitic vol] 8.4 fL Normal 6.4-10.8 [facility] Comment on above: Performed By: #### 2 292894, 7237521, 4056678, 50291793 ####[address] [address] Platelets (Bld) [#/Vol] 220.0 E9/L Normal 150.0-500.0 [facility] Comment on above: Performed By: #### 2 893870, 6012742, 4609888, 33268985 ####[facility] [address] [place] [address] RBC (Bld) [#/Vol] 3.2 E12/L Low 4.3-5.9 [facility] Comment on above: Performed By: #### 2 762186, 5336559, 2480755, 48345373 ####[facility] [address] [place] [address] WBC corrected for nucl RBC Auto (Bld) [#/Vol] 5.0 E9/L Normal 4.0-11.0 [facility] Comment on above: Performed By: #### 2 122180, 5024280, 5373433, 02407272 ####[facility] [address] [place] [address] CHEMISTRYOrdered By: SYSTEM SYSTEM on 03-07-2023 Anion gap [Moles/Vol] 8 mmol/L Normal 6 - 16 mEq/L [facility] Remisol Calcium [Mass/Vol] 8.8 mg/dL Low 8.9 - 11. 1 mg/dL [facility] Chloride [Moles/Vol] 107 mmol/L Normal 101 - 1 11 mmol/L [facility] CO2 [Moles/Vol] 28 mmol/L Normal 21 - 31 mmol/L [facility] Creatinine [Mass/Vol] 0.6 mg/dL Normal 0.5 - 1.3 mg/dL [facility] GFR/1.73 sq M.predicted among non-blacks MDRD (S/P/Bld) [Vol rate/Area] 100 mL/min/1.73 m2 Normal >=59mL/min/ 1.73 m2 [facility] Chem S Glucose [Mass/Vol] 136 mg/dL Normal 55 - 199 mg/dL [facility] Potassium [Moles/Vol] 3.1 mmol/L Low 3.5 - 5.3 mmol/L [facility] Sodium [Moles/Vol] 140 mmol/L Normal 135 - 145 mmol/L [facility] Urea nitrogen [Mass/Vol] 19 mg/dL Normal 5 - 21 mg/dL [facility] Urea nitrogen/Creatinine [Mass ratio] 32 mg/mg High 10 - 20 [facility] Remisol Capillary Glucose POCon 02-08 Glucose [Mass/Vol] 138 mg/dL High 55-99 [facility] Comment on above: Result Comment: Nuno aranda RN/ Performed By: #### 2 [id number] ####[facility] [address] [place] [address] Glucose [Mass/Vol] 91 mg/dL Normal 55-99 [facility] Comment on above: Result Comment: Nuno aranda RN/ Performed By: #### 2 [id number] ####[facility] [address] [place] [address] Glucose [Mass/Vol] 216 mg/dL High 55-99 [facility] Comment on above: Result Comment: Nuno MARIN Performed By: #### 2 88615703 ####[facility] [address] [place] [address] Glucose [Mass/Vol] 133 mg/dL High 55-99 [facility] Comment on above: Result Comment: Nuno MARIN Performed By: #### 2 50053152 ####[facility] [address] [place] [address] HEMATOLOGYOrdered By: SYSTEM SYSTEM on 03-07-2023 Basophils/100 WBC (Bld) 0.3 % Normal 0.0 - 2.0 % [facility] Basophils/Leukocytes Auto (Bld) [Pure # fraction] 0.0 E9/L Normal 0.0 - 0.2 E9/L [facility] Eosinophils/100 WBC (Bld) 1.1 % Normal 0.0 - 8.0 % [facility] Eosinophils/Leukocytes Auto (Bld) [Pure # fraction] 0.1 E9/L Normal 0.0 - 0.5 E9/L [facility] Lymphocytes/100 WBC (Bld) 5.5 % Low 14.0 - 50.0 % [facility] Lymphocytes/Leukocytes Auto (Bld) [Pure # fraction] 0.3 E9/L Low 1.0 - 4.0 E9/L [facility] Monocytes/100 WBC (Bld) 10.4 % Normal 4.0 - 14.0 % [facility] Monocytes/Leukocytes Auto (Bld) [Pure # fraction] 0.5 E9/L Normal 0.2 - 1.0 E9/L [facility] Neutrophils/100 WBC (Bld) 82.7 % High 36.0 - 75.0 % [facility] Neutrophils/Leukocytes Auto (Bld) [Pure # fraction] 4.1 E9/L Normal 2.0 - 7.5 E9/L [facility] HEMATOLOGYOrdered By: Demian Roman on 03-07-2023 Erythrocyte distribution width (RBC) [Ratio] 19.2 % High 10.9 - 14.2 % [facility] Hematocrit (Bld) [Volume fraction] 27.3 % Low 37.7 - 49.0 % [facility] Hemoglobin (Bld) [Mass/Vol] 8.8 g/dL Low 13.5 - 17.5 gm/dL [facility] MCH (RBC) [Entitic mass] 27.4 pg Normal 27.0 - 34.0 pg [facility] MCHC (RBC) [Mass/Vol] 32.2 g/dL Normal 31.4 - 36.0 gm/dL [facility] MCV (RBC) [Entitic vol] 85.0 fL Normal 80.0 - 100.0 fL [facility] Platelet mean volume (Bld) [Entitic vol] 8.4 fL Normal 6.4 - 10.8 fL [facility] Platelets (Bld) [#/Vol] 220.0 E9/L Normal 150.0 - 500.0 E9/L [facility] RBC (Bld) [#/Vol] 3.2 E12/L Low 4.3 - 5.9 E12/L [facility] WBC corrected for nucl RBC Auto (Bld) [#/Vol] 5.0 E9/L Normal 4.0 - 11.0 E9/L [facility] Interdisciplinary Note - Michelet e Manageron 03-07-2023 Interdisciplinary Note - Resident Care Aide Normal [facility] Comment on above: Result Comment: Elec tronically Signed By: Sonia Morejon\.br\Date and Time Signed: 03/07/23 12:44 EDT Operative Reporton 3 Operative Report Normal [facility] Comment on above: Result Comment: Elec tronically Signed By: Vickey WISE, Erwin FOtilia\.br\Date and Time Signed: 03/07/23 20:21 EDT eGFRon 03-07-2023 GFR/1.73 sq M.predicted among non-blacks MDRD (S/P/Bld) [Vol rate/Area] 100 mL/min/1.73 m2 Normal >=59 [facility] Comment on above: Order Comment: Order added by Discern Expert. Result Comment: Fluid Pump Operator alen kidney disease could be indicated at eGFR's of less than 60 mL/min/1.73m2. Kidney failure is indicated at less than 15 mL/min/1.73m2. Performed By: #### 2 573785, 4873598, 1199929, 52750802 ####[facility] [address] [place] [address] Ammoniaon 03-06-2023 Ammonia (P) [Moles/Vol] 16 mcmol Normal 11-35 [facility] Comment on above: Performed By: #### 2 486018 ####[facility] [address] [place] [address] CHEMISTRYOrdered By: SYSTEM SYSTEM on 03-06-2023 Ammonia (P) [Moles/Vol] 16 umol Normal 11 - 35 mcmol [facility] Remisol Capillary Glucose POCon 02-08 Glucose [Mass/Vol] 129 mg/dL High 55-99 [facility] Comment on above: Result Comment: Nuno MARIN Performed By: #### 2 [id number] ####[facility] [address] [place] [address] Glucose [Mass/Vol] 181 mg/dL High 55-99 [facility] Comment on above: Performed By: #### 2 53966070 ####[facility] [address] [place] [address] Glucose [Mass/Vol] 209 mg/dL High 55-99 [facility] Comment on above: Result Comment: Nuno MARIN Performed By: #### 2 [id number] ####[facility] [address] [place] [address] Glucose [Mass/Vol] 136 mg/dL High 55-99 [facility] Comment on above: Result Comment: Nuno aranda RN/ Performed By: #### 2 [id number] ####[facility] [address] [place] [address] Interdisciplinary Note - Michelet e Manageron 03-06-2023 Interdisciplinary Note - Resident Care Aide Normal [facility] Comment on above: Result Comment: Elec tronically Signed By: Chong GUARDADO, Leona\.br\Date and Time Signed: 03/06/23 11:50 EDT Progress Note-Physicianon Progress Note-Physician [facility] Comment on above: Result Comment: Elec tronically Signed By: Savage Petty MD\.br\Date and Time Signed: 03/06/23 12:09 EDT Progress Note-Physician [facility] Comment on above: Result Comment: Elec tronically Signed By: Lynda Carrero RN\.br\Date and Time Signed: 03/06/23 10:26 EDT\.br\Electronically Co-Signed By: Benji Russell DO\.br\Date and Time Co-Signed: 03/06/23 10:39 EDT Progress Note-Physician [facility] Comment on above: Result Comment: Elec tronically Signed By: Shayy BALLESTEROS MD\.br\Date and Time Signed: 03/06/23 09:20 EDT Auto DiffOrdered By: SYSTEM SYSTEM on 03-05-2023 Basophils/100 WBC (Bld) 0.4 % Normal 0.0-2.0 [facility] Comment on above: Order Comment: Order Added by Discern Expert. Performed By: #### 2 184915, 28211521, 2760674, 9173890 ####[facility] [address] [place] [address] Basophils/Leukocytes Auto (Bld) [Pure # fraction] 0.0 E9/L Normal 0.0-0.2 [facility] Comment on above: Order Comment: Order Added by Discern Expert. Performed By: #### 2 872421, 67521618, 2310800, 1955369 ####[facility] [address] [address] Eosinophils/100 WBC (Bld) 0.4 % Normal 0.0-8.0 [facility] Comment on above: Order Comment: Order Added by Cristiano Expert. Performed By: #### 2 060378, 30286598, 5788505, 4881082 ####[facility] [address] [address] Eosinophils/Leukocytes Auto (Bld) [Pure # fraction] 0.0 E9/L Normal 0.0-0.5 [facility] Comment on above: Order Comment: Order Added by Cristiano Expert. Performed By: #### 2 995515, 09875037, 8280987, 8462402 ####[address] [address] Lymphocytes/100 WBC (Bld) 5.2 % Low 14.0-50.0 [facility] Comment on above: Order Comment: Order Added by Cristiano Expert. Performed By: #### 2 649401, 95979966, 1577028, 4067455 ####[facility] [address] [address] Lymphocytes/Leukocytes Auto (Bld) [Pure # fraction] 0.3 E9/L Low 1.0-4.0 [facility] Comment on above: Order Comment: Order Added by Cristiano Expert. Performed By: #### 2 890872, 35292829, 2232015, 6722382 ####[facility] [address] [address] Monocytes/100 WBC (Bld) 9.2 % Normal 4.0-14.0 [facility] Comment on above: Order Comment: Order Added by Cristiano Expert. Performed By: #### 2 855287, 03074275, 4702275, 8750216 ####[facility] [address] [address] Monocytes/Leukocytes Auto (Bld) [Pure # fraction] 0.6 E9/L Normal 0.2-1.0 [facility] Comment on above: Order Comment: Order Added by Discern Expert. Performed By: #### 2 799895, 17969669, 6634434, 3642267 ####[facility] [address] [place] [address] Neutrophils/100 WBC (Bld) 84.8 % High 36.0-75.0 [facility] Comment on above: Order Comment: Order Added by Discern Expert. Performed By: #### 2 879509, 58621854, 4191281, 4269956 ####[address] [place] [address] Neutrophils/Leukocytes Auto (Bld) [Pure # fraction] 5.6 E9/L Normal 2.0-7.5 [facility] Comment on above: Order Comment: Order Added by Discern Expert. Performed By: #### 2 068053, 40129512, 8374125, 1359043 ####[address] [address] BMPon 03-05-2023 Anion gap [Moles/Vol] 9 mmol/L Normal 6-16 [facility] Comment on above: Performed By: #### 2 723618, 93124554, 9293079, 1107161 ####[facility] [address] [place] [address] Chloride [Moles/Vol] 101 mmol/L Normal 101-111 [place] Comment on above: Performed By: #### 2 089130, 71435579, 8037523, 5702184 ####[facility] [address] [place] [address] CO2 [Moles/Vol] 26 mmol/L Normal 21-31 [facility] Comment on above: Performed By: #### 2 073063, 82690847, 1383784, 5075844 ####[facility] [address] [place] [address] Potassium [Moles/Vol] 3.6 mmol/L Normal 3.5-5.3 [facility] Comment on above: Performed By: #### 2 459613, 23101301, 5069316, 6089024 ####[facility] [address] [place] [address] Sodium [Moles/Vol] 132 mmol/L Low 135-145 [facility] Comment on above: Performed By: #### 2 484295, 30126995, 1217359, 2458698 ####[facility] [address] [place] [address] Urea nitrogen/Creatinine [Mass ratio] 26 No Units High 10-20 [facility] Comment on above: Performed By: #### 2 200092, 35303698, 6679652, 5411731 ####[facility] [address] [place] [address] BMPOrdered By: SYSTEM SYSTEM on 03-05-2023 Calcium [Mass/Vol] 8.0 mg/dL Low 8.9-11.1 [facility] Comment on above: Performed By: #### 2 339346, 73408179, 4616725, 7267147 ####[facility] [address] [place] [address] Creatinine [Mass/Vol] 0.5 mg/dL Normal 0.5-1.3 [facility] Comment on above: Performed By: #### 2 624336, 38748053, 8767202, 7660060 ####[facility] [address] [place] [address] Glucose [Mass/Vol] 125 mg/dL Normal 55-199 [facility] Comment on above: Result Comment: If t his glucose result represents a fasting glucose, interpretation should refer to the following reference range: 55-99 mg/dL Performed By: #### 2 375743, 87915504, 1601799, 5639562 ####[facility] [address] [place] [address] Urea nitrogen [Mass/Vol] 13 mg/dL Normal 5-21 [facility] Comment on above: Performed By: #### 2 869167, 55899526, 1914762, 2478507 ####[address] [address] CBC w/ Auto DiffOrdered By: Yane Fitch on 03-05-2023 Erythrocyte distribution width (RBC) [Ratio] 18.2 % High 10.9-14.2 [facility] Comment on above: Performed By: #### 2 310946, 75874116, 0728217, 3019536 ####[address] [address] Hematocrit (Bld) [Volume fraction] 25.1 % Low 37.7-49.0 [facility] Comment on above: Performed By: #### 2 209364, 33467918, 6933225, 5450770 ####[address] [address] Hemoglobin (Bld) [Mass/Vol] 8.2 g/dL Low 13.5-17.5 [facility] Comment on above: Performed By: #### 2 382133, 41685504, 9453742, 4437708 ####[address] [address] MCH (RBC) [Entitic mass] 27.4 pg Normal 27.0-34.0 [facility] Comment on above: Performed By: #### 2 059979, 52521796, 5874805, 2175861 ####[address] [address] MCHC (RBC) [Mass/Vol] 32.6 g/dL Normal 31.4-36.0 [facility] Comment on above: Performed By: #### 2 270738, 99088234, 9847498, 7535204 ####[address] [address] MCV (RBC) [Entitic vol] 84.1 fL Normal 80.0-100.0 [facility] Comment on above: Performed By: #### 2 942097, 38957980, 0417290, 3458186 ####[address] [place] [address] Platelet mean volume (Bld) [Entitic vol] 8.4 fL Normal 6.4-10.8 [facility] Comment on above: Performed By: #### 2 398711, 49673986, 8391742, 9990237 ####[address] [address] Platelets (Bld) [#/Vol] 177.0 E9/L Normal 150.0-500.0 [facility] Comment on above: Performed By: #### 2 453568, 46175458, 0728617, 3950545 ####[address] [address] RBC (Bld) [#/Vol] 3.0 E12/L Low 4.3-5.9 [facility] Comment on above: Performed By: #### 2 816167, 63272764, 9617184, 4926068 ####[address] [address] WBC corrected for nucl RBC Auto (Bld) [#/Vol] 6.5 E9/L Normal 4.0-11.0 [facility] Comment on above: Performed By: #### 2 387037, 91019355, 1680932, 9057793 ####[address] [address] CHEMISTRYOrdered By: SYSTEM SYSTEM on 03-05-2023 Urea nitrogen/Creatinine [Mass ratio] 26 mg/mg High 10 - 20 [facility] Remisol Capillary Glucose POCon 02-08 Glucose [Mass/Vol] 158 mg/dL High 55-99 [facility] Comment on above: Result Comment: Nuno MARIN Performed By: #### 2 76681776 ####[address] [address] Glucose [Mass/Vol] 130 mg/dL High 55-99 [facility] Comment on above: Result Comment: Nuno aranda RN/ Performed By: #### 2 87883949 ####[facility] [address] [place] [address] Glucose [Mass/Vol] 166 mg/dL High 55-99 [facility] Comment on above: Result Comment: Nuno aranda RN/ Performed By: #### 2 80838493 ####[facility] [address] [place] [address] Glucose [Mass/Vol] 174 mg/dL High 55-99 [facility] Comment on above: Result Comment: Nuno aranda RN/ Performed By: #### 2 39634291 ####[facility] [address] [place] [address] Interdisciplinary Note - Michelet e Manageron 03-05-2023 Interdisciplinary Note - Resident Care Aide [facility] Comment on above: Result Comment: Elec tronically Signed By: Leona Schwarz RN\.br\Date and Time Signed: 03/05/23 11:48 EDT Progress Note-Physicianon Progress Note-Physician Normal [facility] Comment on above: Result Comment: Elec tronically Signed By: Jovanny WISE, Savage Jon.br\Date and Time Signed: 03/05/23 12:19 EDT eGFROrdered By: SYSTEM Lucky OysterE M on 03-05-2023 GFR/1.73 sq M.predicted among non-blacks MDRD (S/P/Bld) [Vol rate/Area] 106 mL/min/1.73 m2 Normal >=59 [facility] Chem S Comment on above: Order Comment: Order added by Discern Expert. Result Comment: Fluid Pump Operator alen kidney disease could be indicated at eGFR's of less than 60 mL/min/1.73m2. Kidney failure is indicated at less than 15 mL/min/1.73m2. Performed By: #### 2 458018, 98137581, 8353979, 2869970 ####[facility] [address] [place] [address] Auto DiffOrdered By: BoatsGo SYSTEM on 03-04-2023 Basophils/100 WBC (Bld) 1.3 % Normal 0.0-2.0 [facility] Comment on above: Order Comment: Order Added by Discern Expert. Performed By: #### 1 0139476, 2028844, 1232896, 3634602 ####[address] [address] Basophils/Leukocytes Auto (Bld) [Pure # fraction] 0.1 E9/L Normal 0.0-0.2 [facility] Comment on above: Order Comment: Order Added by Discern Expert. Performed By: #### 1 8525840, 2793491, 1615984, 3250848 ####[address] [address] Eosinophils/100 WBC (Bld) 0.0 % Normal 0.0-8.0 [facility] Comment on above: Order Comment: Order Added by Cristiano Expert. Performed By: #### 1 2082988, 8321591, 2295114, 2743795 ####[address] [address] Eosinophils/Leukocytes Auto (Bld) [Pure # fraction] 0.0 E9/L Normal 0.0-0.5 [facility] Comment on above: Order Comment: Order Added by Cristiano Expert. Performed By: #### 1 2913061, 1795238, 6694953, 3786467 ####[address] [address] Lymphocytes/100 WBC (Bld) 4.6 % Low 14.0-50.0 [facility] Comment on above: Order Comment: Order Added by Cristiano Expert. Performed By: #### 1 5931705, 6406336, 2762534, 9559595 ####[address] [address] Lymphocytes/Leukocytes Auto (Bld) [Pure # fraction] 0.4 E9/L Low 1.0-4.0 [facility] Comment on above: Order Comment: Order Added by Cristiano Expert. Performed By: #### 1 2010546, 0748409, 3931995, 9900024 ####[address] [address] Monocytes/100 WBC (Bld) 9.5 % Normal 4.0-14.0 [facility] Comment on above: Order Comment: Order Added by Discern Expert. Performed By: #### 1 1833973, 3852568, 2468027, 4759588 ####[address] [address] Monocytes/Leukocytes Auto (Bld) [Pure # fraction] 0.9 E9/L Normal 0.2-1.0 [facility] Comment on above: Order Comment: Order Added by Discern Expert. Performed By: #### 1 4027730, 7247593, 0385420, 6891013 ####[address] [address] Neutrophils/100 WBC (Bld) 84.6 % High 36.0-75.0 [facility] Comment on above: Order Comment: Order Added by Discern Expert. Performed By: #### 1 8300926, 1135329, 2112229, 0918840 ####[address] [address] Neutrophils/Leukocytes Auto (Bld) [Pure # fraction] 8.0 E9/L High 2.0-7.5 [facility] Comment on above: Order Comment: Order Added by Discern Expert. Performed By: #### 1 5733883, 2486895, 1971188, 7904491 ####[address] [address] BMPon 03-04-2023 Anion gap [Moles/Vol] 7 mmol/L Normal 6-16 [facility] Comment on above: Order Comment: line packet dropped off to floor...[facility] 03/04/2023 05:14:11 EDT Performed By: #### 1 3785750, 9454852, 0704132, 9006291 ####[address] [address] Chloride [Moles/Vol] 102 mmol/L Normal 101-111 [place] Comment on above: Order Comment: line packet dropped off to floor...[facility] 03/04/2023 05:14:11 EDT Performed By: #### 1 3392167, 7203531, 7478978, 3674975 ####[facility] [address] [place] [address] CO2 [Moles/Vol] 27 mmol/L Normal 21-31 [facility] Comment on above: Order Comment: line packet dropped off to floor...[facility] 03/04/2023 05:14:11 EDT Performed By: #### 1 [id number], 2481006, 9594470, 9831651 ####[facility] [address] [place] [address] Potassium [Moles/Vol] 4.0 mmol/L Normal 3.5-5.3 [facility] Comment on above: Order Comment: line packet dropped off to floor...[facility] 03/04/2023 05:14:11 EDT Performed By: #### 1 9630073, 8043063, 1481392, 4376260 ####[facility] [address] [place] [address] Sodium [Moles/Vol] 132 mmol/L Low 135-145 [facility] Comment on above: Order Comment: line packet dropped off to floor...[facility] 03/04/2023 05:14:11 EDT Performed By: #### 1 0311339, 3206515, 2017582, 1740258 ####[facility] [address] [place] [address] Urea nitrogen/Creatinine [Mass ratio] 34 No Units High 10-20 [facility] Comment on above: Order Comment: line packet dropped off to floor...[facility] 03/04/2023 05:14:11 EDT Performed By: #### 1 8356291, 6854638, 1529520, 0169013 ####[facility] [address] [place] [address] BMPOrdered By: SYSTEM SYSTEM on 03-04-2023 Calcium [Mass/Vol] 8.1 mg/dL Low 8.9-11.1 [facility] Remisol Comment on above: Order Comment: line packet dropped off to floor...[facility] 03/04/2023 05:14:11 EDT Performed By: #### 1 3169971, 5151786, 7590472, 9522393 ####[facility] [address] [place] [address] Creatinine [Mass/Vol] 0.5 mg/dL Normal 0.5-1.3 FT C [facility] Comment on above: Order Comment: line packet dropped off to floor...[facility] 03/04/2023 05:14:11 EDT Performed By: #### 1 9801963, 5765582, 2886615, 3668018 ####[facility] [address] [place] [address] Glucose [Mass/Vol] 129 mg/dL Normal 55-199 [facility] Remisol Comment on above: Order Comment: line packet dropped off to floor...[facility] 03/04/2023 05:14:11 EDT Result Comment: If t his glucose result represents a fasting glucose, interpretation should refer to the following reference range: 55-99 mg/dL Performed By: #### 1 5522327, 4860240, 3746320, 7495228 ####[facility] [address] [address] Urea nitrogen [Mass/Vol] 17 mg/dL Normal 5-21 FT [facility] Comment on above: Order Comment: line packet dropped off to floor...[facility] 03/04/2023 05:14:11 EDT Performed By: #### 1 8573039, 0931132, 3397700, 3700426 ####[facility] [address] [address] CBC w/ Auto DiffOrdered By: Yane Fitch on 03-04-2023 Erythrocyte distribution width (RBC) [Ratio] 17.9 % High 10.9-14.2 [facility] HemeAutoSS Comment on above: Performed By: #### 1 3083805, 8817444, 3831000, 2539116 ####[place] [address] [address] Hematocrit (Bld) [Volume fraction] 26.9 % Low 37.7-49.0 [facility] HemeAutoSS Comment on above: Performed By: #### 1 7933675, 3522393, 9355740, 4432923 ####[facility] [address] [address] Hemoglobin (Bld) [Mass/Vol] 8.8 g/dL Low 13.5-17.5 FT HemeAutoSS Comment on above: Performed By: #### 1 3572873, 8582358, 4931708, 3658524 ####[facility] [address] [address] MCH (RBC) [Entitic mass] 27.4 pg Normal 27.0-34.0 FT HemeAutoSS Comment on above: Performed By: #### 1 4355606, 2103833, 3895267, 2640865 ####[address] [address] MCHC (RBC) [Mass/Vol] 32.8 g/dL Normal 31.4-36.0 FT C HemeAutoSS Comment on above: Performed By: #### 1 4768465, 7175108, 2124924, 5049338 ####[address] [address] MCV (RBC) [Entitic vol] 83.7 fL Normal 80.0-100.0 FT HemeAutoSS Comment on above: Performed By: #### 1 2797160, 6777666, 2859338, 2905154 ####[facility] [address] [address] Platelet mean volume (Bld) [Entitic vol] 8.4 fL Normal 6.4-10.8 FT HemeAutoSS Comment on above: Performed By: #### 1 3239384, 0514255, 3451197, 9009676 ####[address] [address] Platelets (Bld) [#/Vol] 185.0 E9/L Normal 150.0-500.0 FT HemeAutoSS Comment on above: Performed By: #### 1 0065439, 0885976, 2252199, 5106248 ####[facility] [address] [place] [address] RBC (Bld) [#/Vol] 3.2 E12/L Low 4.3-5.9 [facility] HemeAutoSS Comment on above: Performed By: #### 1 4871031, 7984131, 8555661, 4577649 ####[address] [place] [address] WBC corrected for nucl RBC Auto (Bld) [#/Vol] 9.5 E9/L Normal 4.0-11.0 [facility] HemeAutoSS Comment on above: Performed By: #### 1 1702822, 2317211, 7650500, 4025976 ####[address] [address] CHEMISTRYOrdered By: SYSTEM SYSTEM on 03-04-2023 Urea nitrogen/Creatinine [Mass ratio] 34 mg/mg High 10 - 20 [facility] Remisol Capillary Glucose POCon 02-08 Glucose [Mass/Vol] 123 mg/dL High 55-99 [facility] Comment on above: Result Comment: Nuno MARIN Performed By: #### 2 [id number] ####[address] [address] Glucose [Mass/Vol] 158 mg/dL High 55-99 [facility] Comment on above: Result Comment: Nuno MARIN Performed By: #### 2 [id number] ####[address] [place] [address] Glucose [Mass/Vol] 154 mg/dL High 55-99 [facility] Comment on above: Result Comment: Nuno MARIN Performed By: #### 2 62989060 ####[address] [place] [address] Glucose [Mass/Vol] 136 mg/dL High 55-99 [facility] Comment on above: Result Comment: Nuno MARIN Performed By: #### 2 30190776 ####[address] [address] Consent for Anesthesiaon Consent for Anesthesia [id number]#1.00CD:12 7 Normal [facility] Interdisciplinary Note - Michelet e Manageron 03-04-2023 Interdisciplinary Note - Resident Care Aide [facility] Comment on above: Result Comment: Elec tronically Signed By: Дмитрий GUARDADO, Alla\.br\Date and Time Signed: 03/04/23 13:05 EDT Interdisciplinary Note - Alf singon 03-04-2023 Interdisciplinary Note - Nursing Patient dressing was changed as it come off with continued movement. Normal [facility] Interdisciplinary Note - Nut ritionon 03-04-2023 Interdisciplinary Note - Nutrition [facility] Comment on above: Result Comment: Elec tronically Signed By: Lucas MEADOWS, Misty ENRIQUE\.br\Date and Time Signed: 03/04/23 10:48 EDT Other Comment: dupli cation Interdisciplinary Note - Ashley n 03-04-2023 Interdisciplinary Note - OT [facility] IntraOperative Documentson 0 03-04-2023 IntraOperative Documents [id number]#1.00CD:12 7 [facility] Main OR Intraoperative Recor don 03-04-2023 Main OR Intraoperative Record [facility] Progress Note-Physicianon Progress Note-Physician [facility] Comment on above: Result Comment: Elec tronically Signed By: Katheryn WISE, Aiden\.br\Date and Time Signed: 03/04/23 21:12 EDT Progress Note-Physician [facility] Comment on above: Result Comment: Elec tronically Signed By: Chong Coe M.D\.br\Date and Time Signed: 03/04/23 09:39 EDT eGFROrdered By: LUZ Hernandez on 03-04-2023 GFR/1.73 sq M.predicted among non-blacks MDRD (S/P/Bld) [Vol rate/Area] 106 mL/min/1.73 m2 Normal >=59 [facility] Chem S Comment on above: Order Comment: Order added by Discern Expert. Result Comment: Fluid Pump Operator alen kidney disease could be indicated at eGFR's of less than 60 mL/min/1.73m2. Kidney failure is indicated at less than 15 mL/min/1.73m2. Performed By: #### 1 1911760, 9309078, 3727010, 3232698 ####[address] [place] [address] Auto Diffon 03-03-2023 Basophils/100 WBC (Bld) 2.3 % High 0.0-2.0 [facility] Comment on above: Order Comment: Order Added by Discern Expert. Performed By: #### 2 164955, 1942870, 6875443, 12124969 ####[address] [address] Basophils/Leukocytes Auto (Bld) [Pure # fraction] 0.2 E9/L Normal 0.0-0.2 [facility] Comment on above: Order Comment: Order Added by Discern Expert. Performed By: #### 2 543605, 4812049, 5588908, 40835685 ####[address] [place] [address] Eosinophils/100 WBC (Bld) 0.8 % Normal 0.0-8.0 [facility] Comment on above: Order Comment: Order Added by Discern Expert. Performed By: #### 2 732809, 8299035, 7571278, 86790998 ####[address] [address] Eosinophils/Leukocytes Auto (Bld) [Pure # fraction] 0.1 E9/L Normal 0.0-0.5 [facility] Comment on above: Order Comment: Order Added by Discern Expert. Performed By: #### 2 497930, 3564293, 4989593, 79785907 ####[address] [address] Lymphocytes/100 WBC (Bld) 5.9 % Low 14.0-50.0 [facility] Comment on above: Order Comment: Order Added by Discern Expert. Performed By: #### 2 790761, 4384339, 2985488, 16457287 ####[address] [place] [address] Lymphocytes/Leukocytes Auto (Bld) [Pure # fraction] 0.4 E9/L Low 1.0-4.0 [facility] Comment on above: Order Comment: Order Added by Discern Expert. Performed By: #### 2 046714, 6360336, 2866089, 27595586 ####[address] [address] Monocytes/100 WBC (Bld) 10.3 % Normal 4.0-14.0 [facility] Comment on above: Order Comment: Order Added by Discern Expert. Performed By: #### 2 827241, 7120660, 5688037, 12802070 ####[address] [address] Monocytes/Leukocytes Auto (Bld) [Pure # fraction] 0.7 E9/L Normal 0.2-1.0 [facility] Comment on above: Order Comment: Order Added by Discern Expert. Performed By: #### 2 702205, 8341690, 4391216, 83044345 ####[address] [address] Neutrophils/100 WBC (Bld) 80.7 % High 36.0-75.0 [facility] Comment on above: Order Comment: Order Added by Discern Expert. Performed By: #### 2 811575, 8135016, 0698805, 59823153 ####[address] [address] Neutrophils/Leukocytes Auto (Bld) [Pure # fraction] 5.4 E9/L Normal 2.0-7.5 [facility] Comment on above: Order Comment: Order Added by Discern Expert. Performed By: #### 2 836289, 6173256, 5315958, 79417997 ####[address] [place] [address] BMPon 03-03-2023 Anion gap [Moles/Vol] 7 mmol/L Normal 6-16 [facility] Comment on above: Performed By: #### 2 440507, 0004282, 3687998, 15113169 ####[facility] [address] [place] [address] Calcium [Mass/Vol] 8.1 mg/dL Low 8.9-11.1 [facility] Comment on above: Performed By: #### 2 239562, 0916916, 1144755, 44816190 ####[facility] [address] [place] [address] Chloride [Moles/Vol] 102 mmol/L Normal 101-111 [place] Comment on above: Performed By: #### 2 396173, 4512961, 2348082, 82372169 ####[facility] [address] [place] [address] CO2 [Moles/Vol] 27 mmol/L Normal 21-31 [facility] Comment on above: Performed By: #### 2 304024, 2559147, 1858546, 42472416 ####[facility] [address] [place] [address] Creatinine [Mass/Vol] 0.5 mg/dL Normal 0.5-1.3 [facility] Comment on above: Performed By: #### 2 709720, 2552923, 5926379, 42947656 ####[facility] [address] [place] [address] Glucose [Mass/Vol] 125 mg/dL Normal 55-199 [facility] Comment on above: Result Comment: If t his glucose result represents a fasting glucose, interpretation should refer to the following reference range: 55-99 mg/dL Performed By: #### 2 726744, 7370638, 8074686, 66313956 ####[facility] [address] [place] [address] Potassium [Moles/Vol] 3.7 mmol/L Normal 3.5-5.3 [facility] Comment on above: Performed By: #### 2 496769, 1846159, 1231751, 05608135 ####[facility] [address] [place] [address] Sodium [Moles/Vol] 132 mmol/L Low 135-145 [facility] Comment on above: Performed By: #### 2 595505, 2637275, 3678691, 89018749 ####[facility] [address] [place] [address] Urea nitrogen [Mass/Vol] 20 mg/dL Normal 5-21 [facility] Comment on above: Performed By: #### 2 958800, 9992603, 1483253, 79419750 ####[facility] [address] [place] [address] Urea nitrogen/Creatinine [Mass ratio] 40 No Units High 10-20 [facility] Comment on above: Performed By: #### 2 945817, 8510017, 7440201, 02192998 ####[facility] [address] [place] [address] CBC w/ Auto Diffon 3 Erythrocyte distribution width (RBC) [Ratio] 18.1 % High 10.9-14.2 [facility] Comment on above: Performed By: #### 2 049269, 8835342, 9473611, 02592398 ####[facility] [address] [place] [address] Hematocrit (Bld) [Volume fraction] 26.1 % Low 37.7-49.0 [facility] Comment on above: Performed By: #### 2 612917, 8440951, 0548997, 33965269 ####[facility] [address] [place] [address] Hemoglobin (Bld) [Mass/Vol] 8.6 g/dL Low 13.5-17.5 [facility] Comment on above: Performed By: #### 2 784494, 8625046, 9869801, 92611206 ####[facility] [address] [place] [address] MCH (RBC) [Entitic mass] 27.1 pg Normal 27.0-34.0 [facility] Comment on above: Performed By: #### 2 490000, 9255837, 9102201, 01477827 ####[address] [address] MCHC (RBC) [Mass/Vol] 32.9 g/dL Normal 31.4-36.0 [facility] Comment on above: Performed By: #### 2 971553, 9693246, 1889952, 86468575 ####[address] [address] MCV (RBC) [Entitic vol] 82.4 fL Normal 80.0-100.0 [facility] Comment on above: Performed By: #### 2 380846, 0740760, 8562277, 21827832 ####[address] [address] Platelet mean volume (Bld) [Entitic vol] 9.1 fL Normal 6.4-10.8 [facility] Comment on above: Performed By: #### 2 325287, 7905150, 1191839, 78012791 ####[address] [address] Platelets (Bld) [#/Vol] 169.0 E9/L Normal 150.0-500.0 [facility] Comment on above: Performed By: #### 2 792072, 3713078, 8064334, 12811635 ####[place] [address] RBC (Bld) [#/Vol] 3.2 E12/L Low 4.3-5.9 [facility] Comment on above: Performed By: #### 2 417657, 6974383, 7294680, 95605960 ####[address] [address] WBC corrected for nucl RBC Auto (Bld) [#/Vol] 6.7 E9/L Normal 4.0-11.0 [facility] Comment on above: Performed By: #### 2 106578, 2579662, 2966098, 29210515 ####[facility] [address] [place] [address] Capillary Glucose POCon 02-08 Glucose [Mass/Vol] 235 mg/dL High 55-99 [facility] Comment on above: Result Comment: Nuno MARIN Performed By: #### 2 35212714 ####[facility] [address] [place] [address] Glucose [Mass/Vol] 215 mg/dL High 55-99 [facility] Comment on above: Result Comment: Nuno MARIN Performed By: #### 2 72947166 ####[address] [address] Glucose [Mass/Vol] 111 mg/dL High 55-99 [facility] Comment on above: Result Comment: Nuno MARIN Performed By: #### 2 22229386 ####[address] [address] Glucose [Mass/Vol] 128 mg/dL High -[address] [place] [address] Comment on above: Result Comment: Nuno MARIN Performed By: #### 2 86333021 ####[address] [address] Consent for Procedure/Surger yon 03-03-2023 Consent for Procedure/Surgery [id number]#1.00CD:127 Normal [facility] Discharge Instructionson Discharge Instructions [id number]#1.00CD:127 Normal [facility] Interdisciplinary Note - Michelet e Manageron 03-03-2023 Interdisciplinary Note - Resident Care Aide 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 No family in room. Plan is to go to [facility] at discharge. Normal [facility] Comment on above: Result Comment: Elec tronically Signed By: Дмитрий GUARDADO, Alla\.br\Date and Time Signed: 03/03/23 11:35 EDT Main OR PACU I Recordon 02-08 Main OR PACU I Record Normal [facility] Main OR Preoperative Recordo n 03-03-2023 Main OR Preoperative Record Normal [facility] Monitor Recordon 03-03-2023 Monitor Record [id number]#1.00CD:127 Normal [facility] Monitor Record [id number]#1.00CD:127 Normal [facility] Monitor Record [id number]#1.00CD:127 Normal [facility] Progress Note-Physicianon Progress Note-Physician Normal [facility] Comment on above: Result Comment: Elec tronically Signed By: Katheryn WISE, Aiden\.br\Date and Time Signed: 03/03/23 18:30 EDT eGFRon 03-03-2023 GFR/1.73 sq M.predicted among non-blacks MDRD (S/P/Bld) [Vol rate/Area] 106 mL/min/1.73 m2 Normal >=59 [facility] Comment on above: Order Comment: Order added by Discern Expert. Result Comment: Fluid Pump Operator alen kidney disease could be indicated at eGFR's of less than 60 mL/min/1.73m2. Kidney failure is indicated at less than 15 mL/min/1.73m2. Performed By: #### 2 417695, 9518705, 0263425, 45009758 ####[facility] [address] [place] [address] Auto Diffon 03-02-2023 Basophils/100 WBC (Bld) 1.0 % Normal 0.0-2.0 [facility] Comment on above: Order Comment: Order Added by Discern Expert. Performed By: #### 1 8200883, 8395523, 0553847, 0537699, 0142374 ####[facility] [address] [place] [address] Basophils/Leukocytes Auto (Bld) [Pure # fraction] 0.1 E9/L Normal 0.0-0.2 [facility] Comment on above: Order Comment: Order Added by Discern Expert. Performed By: #### 1 8112655, 0967941, 1168360, 5229212, 4102900 ####[address] [place] [address] Eosinophils/100 WBC (Bld) 0.2 % Normal 0.0-8.0 [facility] Comment on above: Order Comment: Order Added by Discern Expert. Performed By: #### 1 5924071, 6972846, 1156357, 4930343, 2770256 ####[address] [place] [address] Eosinophils/Leukocytes Auto (Bld) [Pure # fraction] 0.0 E9/L Normal 0.0-0.5 [facility] Comment on above: Order Comment: Order Added by Discern Expert. Performed By: #### 1 8748247, 1849156, 1013661, 0771169, 7986887 ####[address] [address] Lymphocytes/100 WBC (Bld) 4.7 % Low 14.0-50.0 [facility] Comment on above: Order Comment: Order Added by Discern Expert. Performed By: #### 1 0755212, 1948377, 9772927, 2986734, 0022262 ####[address] [address] Lymphocytes/Leukocytes Auto (Bld) [Pure # fraction] 0.3 E9/L Low 1.0-4.0 [facility] Comment on above: Order Comment: Order Added by Discern Expert. Performed By: #### 1 8658551, 1679286, 1910885, 2957253, 7375579 ####[address] [address] Monocytes/100 WBC (Bld) 10.1 % Normal 4.0-14.0 [facility] Comment on above: Order Comment: Order Added by Discern Expert. Performed By: #### 1 0326666, 8581800, 0598313, 9921574, 8900410 ####[facility] [address] [place] [address] Monocytes/Leukocytes Auto (Bld) [Pure # fraction] 0.7 E9/L Normal 0.2-1.0 [facility] Comment on above: Order Comment: Order Added by Discern Expert. Performed By: #### 1 9899328, 1445580, 3520408, 9484277, 7868050 ####[address] [place] [address] Neutrophils/100 WBC (Bld) 84.0 % High 36.0-75.0 [facility] Comment on above: Order Comment: Order Added by Discern Expert. Performed By: #### 1 2334519, 0123262, 5730377, 8363822, 8147547 ####[address] [place] [address] Neutrophils/Leukocytes Auto (Bld) [Pure # fraction] 5.6 E9/L Normal 2.0-7.5 [facility] Comment on above: Order Comment: Order Added by Discern Expert. Performed By: #### 1 3655442, 0944753, 4856328, 5244281, 6564676 ####[address] [place] [address] BMPon 03-02-2023 Anion gap [Moles/Vol] 8 mmol/L Normal 6-16 [facility] Comment on above: Order Comment: line packet sent up to floor...[facility] 03/02/2023 05:13:13 EDT Performed By: #### 1 2683307, 7696828, 9015822, 3198282, 2041641 ####[address] [place] [address] Calcium [Mass/Vol] 8.1 mg/dL Low 8.9-11.1 [facility] Comment on above: Order Comment: line packet sent up to floor...[facility] 03/02/2023 05:13:13 EDT Performed By: #### 1 2512039, 9215335, 7513072, 3938635, 1594101 ####[facility] [address] [place] [address] Chloride [Moles/Vol] 102 mmol/L Normal 101-111 [place] Comment on above: Order Comment: line packet sent up to floor...[facility] 03/02/2023 05:13:13 EDT Performed By: #### 1 9494919, 4418250, 8221797, 8565045, 9721329 ####[facility] [address] [place] [address] CO2 [Moles/Vol] 27 mmol/L Normal 21-31 [facility] Comment on above: Order Comment: line packet sent up to floor...[facility] 03/02/2023 05:13:13 EDT Performed By: #### 1 4215095, 8612474, 9076598, 0728963, 1125610 ####[facility] [address] [place] [address] Creatinine [Mass/Vol] 0.6 mg/dL Normal 0.5-1.3 [facility] Comment on above: Order Comment: line packet sent up to floor...[facility] 03/02/2023 05:13:13 EDT Performed By: #### 1 0628199, 1542968, 2974330, 8572232, 4725880 ####[facility] [address] [place] [address] Glucose [Mass/Vol] 132 mg/dL Normal 55-199 [facility] Comment on above: Order Comment: line packet sent up to floor...[facility] 03/02/2023 05:13:13 EDT Result Comment: If t his glucose result represents a fasting glucose, interpretation should refer to the following reference range: 55-99 mg/dL Performed By: #### 1 8131773, 0438252, 9770944, 7452275, 4675014 ####[facility] [address] [place] [address] Potassium [Moles/Vol] 3.9 mmol/L Normal 3.5-5.3 [facility] Comment on above: Order Comment: line packet sent up to floor...[facility] 03/02/2023 05:13:13 EDT Performed By: #### 1 1560012, 9102971, 6218774, 6057053, 7873278 ####[facility] [address] [place] [address] Sodium [Moles/Vol] 133 mmol/L Low 135-145 [facility] Comment on above: Order Comment: line packet sent up to floor...[facility] 03/02/2023 05:13:13 EDT Performed By: #### 1 0476012, 0471167, 9657551, 9872448, 7766315 ####[facility] [address] [place] [address] Urea nitrogen [Mass/Vol] 19 mg/dL Normal 5-21 [facility] Comment on above: Order Comment: line packet sent up to floor...[facility] 03/02/2023 05:13:13 EDT Performed By: #### 1 7425915, 3232994, 8988617, 7536341, 0505129 ####[facility] [address] [place] [address] Urea nitrogen/Creatinine [Mass ratio] 32 No Units High 10-20 [facility] Comment on above: Order Comment: line packet sent up to floor...[facility] 03/02/2023 05:13:13 EDT Performed By: #### 1 3115386, 4637412, 7246183, 1200925, 7352993 ####[facility] [address] [place] [address] C Blood Charcoalon 3 Blood Culture Charcoal Normal [facility] Comment on above: Performed By: #### 1 8215448 ####[facility] [address] [place] [address] Blood Culture Charcoal Normal [facility] Comment on above: Performed By: #### 1 9536908 ####[facility] [address] [place] [address] CBC w/ Auto Diffon 3 Erythrocyte distribution width (RBC) [Ratio] 17.5 % High 10.9-14.2 [facility] Comment on above: Performed By: #### 1 8905197, 3452031, 1238129, 7812227, 3394178 ####[facility] [address] [place] [address] Hematocrit (Bld) [Volume fraction] 25.4 % Low 37.7-49.0 [facility] Comment on above: Performed By: #### 1 1249605, 6586120, 9073110, 6592089, 0263975 ####[facility] [address] [place] [address] Hemoglobin (Bld) [Mass/Vol] 8.3 g/dL Low 13.5-17.5 [facility] Comment on above: Performed By: #### 1 9732279, 4338897, 8577248, 3476826, 6760749 ####[place] [address] MCH (RBC) [Entitic mass] 26.9 pg Low 27.0-34.0 [facility] Comment on above: Performed By: #### 1 3255475, 2065406, 9222877, 5154223, 0018033 ####[address] [address] MCHC (RBC) [Mass/Vol] 32.7 g/dL Normal 31.4-36.0 [facility] Comment on above: Performed By: #### 1 9650084, 3161221, 3370832, 9837093, 0970214 ####[place] [address] [place] [address] MCV (RBC) [Entitic vol] 82.3 fL Normal 80.0-100.0 [facility] Comment on above: Performed By: #### 1 1542544, 8207988, 3329821, 6349281, 2876875 ####[place] [address] [place] [address] Platelet mean volume (Bld) [Entitic vol] 8.5 fL Normal 6.4-10.8 [facility] Comment on above: Performed By: #### 1 3086961, 2447974, 2506442, 5404393, 9935234 ####[facility] [address] [place] [address] Platelets (Bld) [#/Vol] 152.0 E9/L Normal 150.0-500.0 [facility] Comment on above: Performed By: #### 1 8695091, 4663805, 5997594, 6248163, 8049922 ####[facility] [address] [place] [address] RBC (Bld) [#/Vol] 3.1 E12/L Low 4.3-5.9 [facility] Comment on above: Performed By: #### 1 6899939, 7385184, 8562655, 0840479, 9373986 ####[place] [address] [place] [address]881057 WBC corrected for nucl RBC Auto (Bld) [#/Vol] 6.7 E9/L Normal 4.0-11.0 [facility] Comment on above: Performed By: #### 1 7670748, 7732265, 9867520, 9104552, 8172649 ####[facility] [address] [place] [address]10[address] CHEMISTRYOrdered By: SYSTEM SYSTEM on 03-02-2023 CK [Catalytic activity/Vol] 197 [iU]/d Normal 14 - 261 Int._Unit/L [facility] Remisol CKon 03-02-2023 CK [Catalytic activity/Vol] 197 Int._Unit/L Normal 14-261 [facility] Comment on above: Performed By: #### 1 8181643, 3345286, 9620029, 3431536, 6192490 ####[place] [address] [place] [address] Capillary Glucose POCon 02-08 Glucose [Mass/Vol] 98 mg/dL Normal 55-99 [facility] Comment on above: Result Comment: Nuno aranda RN/ Performed By: #### 2 79816947 ####[facility] [address] [place] [address] Glucose [Mass/Vol] 96 mg/dL Normal 55-99 [facility] Comment on above: Result Comment: Nuno MARIN Performed By: #### 2 02318003 ####[facility] [address] [place] [address] Glucose [Mass/Vol] 164 mg/dL High 55-99 [facility] Comment on above: Result Comment: Nuno MARIN Performed By: #### 2 14291878 ####[facility] [address] [place] [address] Glucose [Mass/Vol] 112 mg/dL High 55-99 [facility] Comment on above: Result Comment: Nuno MARIN Performed By: #### 2 21904128 ####[facility] [address] [place] [address] Glucose [Mass/Vol] 111 mg/dL High 55-99 [facility] Comment on above: Result Comment: Nuno MARIN Performed By: #### 2 09419760 ####[facility] [address] [place] [address] Ferritinon 03-02-2023 Ferritin [Mass/Vol] 86 ng/mL Normal 24-336 [facility] Comment on above: Result Comment: NORM ALS MEN <30 YRS 16-132 ng/mL MEN >30 YRS 8-338 ng/mL WOMEN (PREMEN) 6-104 ng/mL WOMEN (POSTMEN) 12-210 ng/mL Performed By: #### 1 2154746, 38348623, 4315456, 4517380, 2786675, 58452828, 7407356, 5139261, 3041977, 25826259 ####[facility] [address] [place] [address] Folateon 03-02-2023 Folate [Mass/Vol] 19.8 ng/mL Normal >=6.7 [facility] Comment on above: Performed By: #### 1 3327252, 08485797, 2422453, 8561915, 1631185, 95807719, 5314757, 0093429, 8998087, 49557915 ####[facility] [address] [place] [address] Interdisciplinary Note - Michelet e Manageron 03-02-2023 Interdisciplinary Note - Resident Care Aide Normal [facility] Comment on above: Result Comment: Elec tronically Signed By: Leona Schwarz RN\.br\Date and Time Signed: 03/02/23 11:48 EDT Progress Note-Physicianon Progress Note-Physician Normal [facility] Comment on above: Result Comment: Elec tronically Signed By: Lynda Carrero RN\.br\Date and Time Signed: 03/02/23 09:23 EDT\.br\Electronically Co-Signed By: Andrea Lomax MD\.br\Date and Time Co-Signed: 03/02/23 09:35 EDT Vit B12on 03-02-2023 Cobalamin (Vitamin B12) [Mass/Vol] 1175 pg/mL Normal 50-1500 [facility] Comment on above: Performed By: #### 2 553128, 4682310, 67361912, 79738307, 33102323, 42069903, 6509785, 3440595 ####[facility] [address] [place] [address] eGFRon 03-02-2023 GFR/1.73 sq M.predicted among non-blacks MDRD (S/P/Bld) [Vol rate/Area] 100 mL/min/1.73 m2 Normal >=59 [facility] Comment on above: Order Comment: Order added by Discern Expert. Result Comment: Fluid Pump Operator alen kidney disease could be indicated at eGFR's of less than 60 mL/min/1.73m2. Kidney failure is indicated at less than 15 mL/min/1.73m2. Performed By: #### 1 2706653, 8003443, 1947939, 3658812, 3708353 ####[facility] [address] [place] [address] ABO/Rhon 03-01-2023 ABO/Rh Positive Invalid Interpretation Code [facility] Comment on above: Performed By: #### 1 4659671, 54852439, 2979149, 3179829, 7160656, 19499974, 2938485, 4021500, 5089867, 96231508 ####[facility] [address] [place] [address] ABO/Rh History Checkon 03-01 ABO/Rh History Check Type verified by second s Normal [facility] Comment on above: Performed By: #### 1 3090725, 28489306, 2879616, 2509610, 9993372, 01889850, 6591561, 1430651, 6314164, 49578660 ####[place] [address] [place] [address] ABO/Rh Retypeon 03-01-2023 ABO/Rh Retype Interp Positive Invalid Interpretation Code [facility] Comment on above: Performed By: #### 2 898753, 7331481, 59064707, 19895106, 91794465, 64167949, 6100102, 4732054 ####[facility] [address] [place] [address] ABSCon 03-01-2023 ABSC Gel Interp Negative Normal [facility] Comment on above: Performed By: #### 1 7422347, 52348547, 9600138, 7699150, 5276076, 02243768, 0174473, 5148887, 5057925, 15134502 ####[facility] [address] [place] [address] Auto Diffon 03-01-2023 Basophils/100 WBC (Bld) 0.6 % Normal 0.0-2.0 [facility] Comment on above: Order Comment: Order Added by Discern Expert. Performed By: #### 2 697905, 7208517, 29171989, 74546518, 58173707, 06287108, 9015382, 2464293 ####[facility] [address] [place] [address] Basophils/Leukocytes Auto (Bld) [Pure # fraction] 0.0 E9/L Normal 0.0-0.2 [facility] Comment on above: Order Comment: Order Added by Discern Expert. Performed By: #### 2 594878, 9444294, 98315030, 37489702, 24797761, 53255255, 1888694, 6607807 ####[facility] [address] [place] [address] Eosinophils/100 WBC (Bld) 0.5 % Normal 0.0-8.0 [facility] Comment on above: Order Comment: Order Added by Discern Expert. Performed By: #### 2 612979, 4690602, 77986731, 61077421, 89741313, 65102906, 3227092, 3406757 ####[address] [address] Eosinophils/Leukocytes Auto (Bld) [Pure # fraction] 0.0 E9/L Normal 0.0-0.5 [facility] Comment on above: Order Comment: Order Added by Discern Expert. Performed By: #### 2 837291, 9691489, 94460068, 49812517, 28529637, 72749381, 0460349, 9229588 ####[address] [address] Lymphocytes/100 WBC (Bld) 8.7 % Low 14.0-50.0 [facility] Comment on above: Order Comment: Order Added by Discern Expert. Performed By: #### 2 946898, 9749947, 68888849, 41472891, 91440181, 78878740, 6812122, 3025724 ####[place] [address] [place] [address] Lymphocytes/Leukocytes Auto (Bld) [Pure # fraction] 0.5 E9/L Low 1.0-4.0 [facility] Comment on above: Order Comment: Order Added by Cristiano Expert. Performed By: #### 2 062781, 8264400, 76516458, 89793107, 80006715, 65616177, 6025768, 3435610 ####[address] [place] [address] Monocytes/100 WBC (Bld) 11.3 % Normal 4.0-14.0 [facility] Comment on above: Order Comment: Order Added by Discern Expert. Performed By: #### 2 230793, 1991760, 22709221, 70466001, 37859391, 33244428, 2232800, 7041368 ####[address] [address] Monocytes/Leukocytes Auto (Bld) [Pure # fraction] 0.6 E9/L Normal 0.2-1.0 [facility] Comment on above: Order Comment: Order Added by Discern Expert. Performed By: #### 2 563113, 0021624, 16079694, 31792410, 68696362, 12179120, 2047391, 6747274 ####[address] [address] Neutrophils/100 WBC (Bld) 78.9 % High 36.0-75.0 [facility] Comment on above: Order Comment: Order Added by Discern Expert. Performed By: #### 2 138460, 9424360, 91649133, 42422140, 52836675, 95356928, 7158875, 1852827 ####[address] [address] Neutrophils/Leukocytes Auto (Bld) [Pure # fraction] 4.3 E9/L Normal 2.0-7.5 [facility] Comment on above: Order Comment: Order Added by Discern Expert. Performed By: #### 2 625453, 6802777, 63772777, 17868603, 65468027, 58833480, 3524249, 6654377 ####[address] [address] BLOOD BANKOrdered By: Fabi Massey on 03-01-2023 ABO/Rh Interp Positive Invalid Interpretation Code [facility] BB Subsection ABSC Gel Interp Negative (03/01/23 8:13 AM) Normal [facility] BB Subsection ABO/Rh Retype Interp Positive Invalid Interpretation Code [facility] BB Subsection Blood Bank ID#on 03-01-2023 BBID# [id number] Invalid Interpretation Code [facility] Comment on above: Performed By: #### 1 4757265, 26850927, 2549545, 9752086, 1124799, 93373687, 4118731, 9571991, 2133061, 11641538 ####[facility] [address] [place] [address] CBC w/ Auto Diffon Erythrocyte distribution width (RBC) [Ratio] 19.2 % High 10.9-14.2 [facility] Comment on above: Performed By: #### 2 140840, 4425706, 00617656, 06130184, 91664488, 05856293, 5277550, 1280454 ####[facility] [address] [place] [address] Hematocrit (Bld) [Volume fraction] 19.9 % Low 37.7-49.0 [facility] Comment on above: Performed By: #### 2 755582, 3740924, 75371449, 68203514, 88604288, 05998457, 5359568, 9904675 ####[facility] [address] [place] [address] Hemoglobin (Bld) [Mass/Vol] 6.5 g/dL Abnormal 13.5-17.5 [facility] Comment on above: Result Comment: Resu lts Called To Isaac/Angela Mendez By _ And Read Back For Confirmation On 03/01/2023 07:50:53 EDTResults Verified By Repeat Analysis Performed By: #### 2 412198, 7741874, 41947763, 05568842, 74794342, 17487413, 3071518, 4263347 ####[facility] [address] [place] [address] MCH (RBC) [Entitic mass] 26.9 pg Low 27.0-34.0 [facility] Comment on above: Performed By: #### 2 133004, 0803250, 24194603, 33324666, 75564803, 21928202, 6273406, 2857929 ####[place] [address] [place] [address] MCHC (RBC) [Mass/Vol] 32.6 g/dL Normal 31.4-36.0 [facility] Comment on above: Performed By: #### 2 302881, 9848282, 93880377, 10202535, 47272676, 85874454, 9035412, 0159550 ####[address] [address] MCV (RBC) [Entitic vol] 82.3 fL Normal 80.0-100.0 [facility] Comment on above: Performed By: #### 2 879673, 4998207, 25498936, 33027196, 38348440, 96060557, 8522120, 9372557 ####[address] [address] Platelet mean volume (Bld) [Entitic vol] 8.9 fL Normal 6.4-10.8 [facility] Comment on above: Performed By: #### 2 049536, 0489212, 52247633, 43999055, 39520249, 52700252, 1032208, 4070165 ####[address] [address] Platelets (Bld) [#/Vol] 161.0 E9/L Normal 150.0-500.0 [facility] Comment on above: Performed By: #### 2 610811, 5308648, 93967526, 12822783, 27966600, 82392903, 2374463, 9771058 ####[address] [address] RBC (Bld) [#/Vol] 2.4 E12/L Low 4.3-5.9 [facility] Comment on above: Performed By: #### 2 741894, 5416054, 15246300, 67091189, 21162576, 70661561, 6398515, 7030086 ####[facility] [address] [place] [address] WBC corrected for nucl RBC Auto (Bld) [#/Vol] 5.5 E9/L Normal 4.0-11.0 [facility] Comment on above: Performed By: #### 2 915569, 4585615, 95660216, 58846709, 41149731, 64889426, 2260646, 2525886 ####[facility] [address] [place] [address] CHEMISTRYOrdered By: SYSTEM SYSTEM on 03-01-2023 Ferritin [Mass/Vol] 86 ng/mL Normal 24 - 336 ng/mL [facility] Remisol Folate [Mass/Vol] 19.8 ng/mL Normal >=6.7ng/mL [facility] Remisol Iron [Mass/Vol] 21 ug/dL Low 35 - 153 mcg/dL [facility] Remisol Iron binding capacity [Mass/Vol] 290 ug/dL Normal 250 - 400 mcg/dL [facility] Remisol LDH [Catalytic activity/Vol] 127 [iU]/d Normal 93 - 218 Int._Unit/L [facility] Remisol Transferrin [Mass/Vol] 207 mg/dL Normal 200 - 370 mg/dL [facility] Remisol Albumin [Mass/Vol] 2.2 g/dL Low 3.3 - 5.0 gm/dL [facility] Remisol Albumin/Globulin [Mass ratio] 0.5 {ratio} Low 1.1 - 2.2 [facility] Remisol ALP [Catalytic activity/Vol] 77 [iU]/d Normal 21 - 98 Int._Unit/L [facility] Remisol ALT No additional P-5'-P [Catalytic activity/Vol] 24 [iU]/d Normal 6 - 46 Int._Unit/L [facility] Remisol AST [Catalytic activity/Vol] 34 [iU]/d Normal 5 - 43 Int._Unit/L [facility] Remisol Bilirubin [Mass/Vol] 0.6 mg/dL Normal 0.0 - 1 .1 mg/dL [facility] Remisol Cobalamin (Vitamin B12) [Mass/Vol] 1175 pg/mL Normal 50 - 1500 pg/mL [facility] Remisol Globulin (S) [Mass/Vol] 4.1 g/dL High 1.4 - 4.0 gm/dL [facility] Remisol Protein [Mass/Vol] 6.3 g/dL Normal 6.0 - 7.8 gm/dL [facility] Remisol TSH Qn 0.95 m[IU]/L Normal 0.34 - 5.60 mcIU/mL [facility] Remisol CMPon 03-01-2023 Albumin [Mass/Vol] 2.2 g/dL Low 3.3-5.0 [facility] Comment on above: Performed By: #### 2 285573, 4398035, 03670189, 75839706, 17542058, 80364796, 0090207, 1809065 ####[facility] [address] [place] [address] Albumin/Globulin (S) [Mass conc ratio] 0.5 Low 1.1-2.2 [facility] Comment on above: Performed By: #### 2 403186, 8286080, 82360334, 03276005, 49418684, 90978449, 3695934, 2510204 ####[facility] [address] [place] [address] ALP [Catalytic activity/Vol] 77 Int._Unit/L Normal 21-98 [facility] Comment on above: Performed By: #### 2 644389, 0341491, 90496276, 06202302, 32312040, 22394891, 6867666, 6743989 ####[facility] [address] [place] [address] ALT No additional P-5'-P [Catalytic activity/Vol] 24 Int._Unit/L Normal 6-46 [facility] Comment on above: Performed By: #### 2 665978, 2767154, 45318238, 64827946, 57165347, 06882964, 9886830, 2763712 ####[facility] [address] [place] [address] Anion gap [Moles/Vol] 8 mmol/L Normal 6-16 [facility] Comment on above: Performed By: #### 2 439909, 9780178, 80334366, 04187163, 80920483, 62493282, 9927678, 6290125 ####[facility] [address] [place] [address] AST [Catalytic activity/Vol] 34 Int._Unit/L Normal 5-43 [facility] Comment on above: Performed By: #### 2 721840, 7566712, 73861179, 58675562, 67541109, 30070441, 7557890, 8134956 ####[facility] [address] [place] [address] Bilirubin [Mass/Vol] 0.6 mg/dL Normal 0.0-1.1 [place] Comment on above: Performed By: #### 2 090390, 5235425, 43397537, 50078630, 32229059, 04437888, 6914512, 9858955 ####[address] [address] Calcium [Mass/Vol] 8.1 mg/dL Low 8.9-11.1 [facility] Comment on above: Performed By: #### 2 065331, 4216588, 13236568, 83783178, 46995976, 10848973, 2990650, 5758705 ####[place] [address] [place] [address] Chloride [Moles/Vol] 99 mmol/L Low 101-111 [place] Comment on above: Performed By: #### 2 848278, 5609367, 91605271, 06178903, 71259003, 43339806, 3855250, 3179568 ####[facility] [address] [place] [address] CO2 [Moles/Vol] 28 mmol/L Normal 21-31 [facility] Comment on above: Performed By: #### 2 885189, 6004999, 82451579, 44831058, 95597533, 17880460, 5395551, 6960608 ####[address] [address] Creatinine [Mass/Vol] 0.5 mg/dL Normal 0.5-1.3 [facility] Comment on above: Performed By: #### 2 633343, 8158417, 39804959, 53365706, 65725155, 41111025, 9045153, 4541403 ####[facility] [address] [place] [address] Globulin (S) [Mass/Vol] 4.1 g/dL High 1.4-4.0 [facility] Comment on above: Performed By: #### 2 751218, 9941516, 58782096, 69139503, 99989472, 82667559, 3054280, 0127579 ####[facility] [address] [place] [address] Glucose [Mass/Vol] 110 mg/dL Normal 55-199 [facility] Comment on above: Result Comment: If t his glucose result represents a fasting glucose, interpretation should refer to the following reference range: 55-99 mg/dL Performed By: #### 2 443415, 1407044, 95067030, 45914726, 26446936, 42233196, 7197361, 4436891 ####[facility] [address] [place] [address] Potassium [Moles/Vol] 4.0 mmol/L Normal 3.5-5.3 [facility] Comment on above: Performed By: #### 2 101541, 1598782, 19223066, 79410693, 69453450, 17285674, 5977206, 0951163 ####[facility] [address] [place] [address] Protein [Mass/Vol] 6.3 g/dL Normal 6.0-7.8 [facility] Comment on above: Performed By: #### 2 851446, 2895523, 34412052, 62799317, 40349135, 08572395, 0732323, 1460468 ####[facility] [address] [place] [address] Sodium [Moles/Vol] 131 mmol/L Low 135-145 [facility] Comment on above: Performed By: #### 2 876266, 9270450, 70941077, 38749299, 47488380, 22627135, 8901682, 9466411 ####[facility] [address] [place] [address] Urea nitrogen [Mass/Vol] 22 mg/dL High 5-21 [facility] Comment on above: Performed By: #### 2 427950, 5839598, 58931734, 97601690, 73253458, 56978489, 8348375, 5308186 ####[facility] [address] [place] [address] Urea nitrogen/Creatinine [Mass ratio] 44 No Units High 10-20 [facility] Comment on above: Performed By: #### 2 221636, 9101879, 75580415, 03056682, 10819097, 88708834, 9117919, 6078588 ####[facility] [address] [place] [address] Capillary Glucose POCon 05 Glucose [Mass/Vol] 160 mg/dL High 55-99 [facility] Comment on above: Result Comment: Nuno MARIN Performed By: #### 2 77078951 ####[facility] [address] [place] [address] Glucose [Mass/Vol] 110 mg/dL High 55-99 [facility] Comment on above: Result Comment: Nuno MARIN Performed By: #### 2 82836636 ####[facility] [address] [place] [address] Glucose [Mass/Vol] 173 mg/dL High 55-99 [facility] Comment on above: Result Comment: Nuno MARIN Performed By: #### 2 65354557 ####[facility] [address] [place] [address] Glucose [Mass/Vol] 128 mg/dL High 55-99 [facility] Comment on above: Result Comment: Nuno aranda RN/ Performed By: #### 2 54652754 ####[facility] [address] [place] [address] Consultation Noteon 03-01-20 Consultation Note Normal [facility] Comment on above: Result Comment: Elec tronically Signed By: Win GUARDADO, Ольга Roman\.br\Date and Time Signed: 03/01/23 07:00 EDT\.br\Electronically Co-Signed By: Dami WISE, Andrea\.br\Date and Time Co-Signed: 03/01/23 09:00 EDT HEMATOLOGYOrdered By: Fabi Herbert on 03-01-2023 Reticulocytes/100 RBC (Bld) 1.6 % High 0.5 - 1.5 % [facility] Comment on above: Result Comment: This Reticulocyte Count Has Been Corrected For Anemia Anisocytosis Ql (Bld) Present (03/01/23 5:30 AM) Normal [facility]eManSS Hypochromia Auto Ql (Bld) Present (03/01/23 5:30 AM) Normal [facility] Morphology Jah (Bld) [Interp] See Morphology (03/01/23 5:30 AM) Normal [facility]eMan[facility] Interdisciplinary Note - Michelet e Manageron 03-01-2023 Interdisciplinary Note - Resident Care Aide Normal [facility] Comment on above: Result Comment: Elec tronically Signed By: Chong GUARDADO, Leona\.br\Date and Time Signed: 03/01/23 11:25 EDT Interdisciplinary Note - Soc ial Workeron 03-01-2023 Interdisciplinary Note - Cork Wirer Normal [facility] Rehabilitation Ironon 03-01-2023 Iron [Mass/Vol] 21 microgram/dL Low 35-153 [facility] Comment on above: Performed By: #### 1 [id number], 52503362, 3471100, 6757831, 2311035, 82629279, 7504457, 1865399, 8230062, 73792655 ####[facility] [address] [place] [address] LDHon 03-01-2023 LDH [Catalytic activity/Vol] 127 Int._Unit/L Normal 93-218 [facility] Comment on above: Performed By: #### 1 1532884, 48519837, 6384071, 1974204, 1692766, 18855926, 3145941, 9351350, 0167131, 26552293 ####[facility] [address] [place] [address] MRI Brain w/o Contraston MRI Brain w/o Contrast Normal [facility] Morphon 03-01-2023 Anisocytosis Ql (Bld) Present Normal [facility] Comment on above: Order Comment: Order Added by Discern Expert. Performed By: #### 2 799556, 7943256, 67896842, 72238816, 36618230, 49690248, 8831177, 4491315 ####[facility] [address] [place] [address] Hypochromia Auto Ql (Bld) Present Normal [facility] Comment on above: Order Comment: Order Added by Discern Expert. Performed By: #### 2 940660, 4404152, 90629222, 03696769, 01782831, 48439185, 7395332, 0528361 ####[facility] [address] [place] [address] Morphology Jah (Bld) [Interp] See Morphology Normal [facility] Comment on above: Order Comment: Order Added by Discern Expert. Performed By: #### 2 451307, 0989515, 61388646, 92494434, 33450936, 60664549, 4346508, 0885463 ####[facility] [address] [place] [address] Progress Note-Physicianon Progress Note-Physician Normal [facility] Comment on above: Result Comment: Elec tronically Signed By: Chong Coe M.D\.br\Date and Time Signed: 03/01/23 14:52 EDT Progress Note-Physician Normal [facility] Comment on above: Result Comment: Elec tronically Signed By: FAVIAN WISE, Shayy\.br\Date and Time Signed: 03/01/23 09:01 EDT RAD - MRI Screening Formon 0 03-01-2023 RAD - MRI Screening Form [id number]:127 Normal [facility] RAD - MRI Screening Form [id number]:127 Normal [facility] RCOon 03-01-2023 # of Units 2 Invalid Interpretation Code [facility] Comment on above: Result Comment: 03/01 9:30 [id number] product ready and called to Emerald Castillo/ Isaac at 03/01/2023 09:29:57 EDT by BR. Performed By: #### 1 [id number] ####[address] [address] Date Required 03/01/2023 Invalid Interpretation Code [facility] Comment on above: Performed By: #### 1 [id number] ####[address] [address] Product Type None Required Invalid Interpretation Code [facility] Comment on above: Performed By: #### 1 [id number] ####[address] [address] Retic Counton 03-01-2023 Reticulocytes/100 RBC (Bld) 1.6 % High 0.5-1.5 [facility] Comment on above: Result Comment: This Reticulocyte Count Has Been Corrected For Anemia Performed By: #### 1 2180265, 21299366, 8275525, 0242725, 3082566, 82330957, 9523787, 6200067, 6550926, 62309134 ####[address] [place] [address] TIBC Calculatedon 03-01-2023 Iron binding capacity [Mass/Vol] 290 microgram/dL Normal 250-400 [facility] Comment on above: Performed By: #### 1 9189724, 90440661, 7531847, 4701819, 4160265, 29364833, 5275475, 8392363, 7810478, 98891568 ####[facility] [address] [place] [address] Transferrin [Mass/Vol] 207 mg/dL Normal 200-370 [facility] Comment on above: Performed By: #### 1 7591659, 62994561, 4396316, 4441703, 9225655, 41293546, 7034745, 0264516, 7487024, 75270418 ####[facility] [address] [place] [address] TSH With T4fr Reflexon 03-01 TSH Qn 0.95 m[IU]/L Normal 0.34-5.60 [facility] Comment on above: Performed By: #### 2 127513, 9201141, 02241809, 00568267, 32582829, 79565731, 8536499, 0384997 ####[facility] [address] [place] [address] eGFRon 03-01-2023 GFR/1.73 sq M.predicted among non-blacks MDRD (S/P/Bld) [Vol rate/Area] 106 mL/min/1.73 m2 Normal >=59 [facility] Comment on above: Order Comment: Order added by Discern Expert. Result Comment: Fluid Pump Operator alen kidney disease could be indicated at eGFR's of less than 60 mL/min/1.73m2. Kidney failure is indicated at less than 15 mL/min/1.73m2. Performed By: #### 2 078268, 5671404, 88741136, 92191254, 92359659, 75971422, 2590539, 3466446 ####[facility] [address] [place] [address] Capillary Glucose POCon 02-08 Glucose [Mass/Vol] 212 mg/dL High 55-99 [facility] Comment on above: Result Comment: Nuno aranda RN/ Performed By: #### 2 [id number] ####[facility] [address] [place] [address] Glucose [Mass/Vol] 134 mg/dL High 55-99 [facility] Comment on above: Result Comment: Nuno aranda RN/ Performed By: #### 2 49065711 ####[facility] [address] [place] [address] Glucose [Mass/Vol] 157 mg/dL High 55-99 [facility] Comment on above: Result Comment: Nuno aranda RN/ Performed By: #### 2 52096067 ####[facility] [address] [place] [address] Glucose [Mass/Vol] 126 mg/dL High 55-99 [facility] Comment on above: Result Comment: Nuno aranda RN/ Performed By: #### 2 93056976 ####[facility] [address] [place] [address] Interdisciplinary Note - Michelet e Manageron 02-28-2023 Interdisciplinary Note - Resident Care Aide [facility] Comment on above: Result Comment: Elec tronically Signed By: Leona Schwarz RN\.br\Date and Time Signed: 02/28/23 12:21 EDT Interdisciplinary Note - Nut ritionon 02-28-2023 Interdisciplinary Note - Nutrition Pt reassessed. 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 otherwise, pt demonstrates poor appetite, but accepts supplements/nourishments. Goal not met, continue POC. Normal [facility] Comment on above: Result Comment: Elec tronically Signed By: Lucas MEADOWS, SARITA., Misty\.br\Date and Time Signed: 02/28/23 13:34 EDT BMPon 02-27-2023 Anion gap [Moles/Vol] 10 mmol/L Normal 6-16 [facility] Comment on above: Performed By: #### 1 2366711, 2338076 ####[facility] [address] [place] [address] Calcium [Mass/Vol] 8.1 mg/dL Low 8.9-11.1 [facility] Comment on above: Performed By: #### 1 1487155, 5209562 ####[facility] [address] [place] [address] Chloride [Moles/Vol] 98 mmol/L Low 101-111 [place] Comment on above: Performed By: #### 1 5939179, 1745984 ####[facility] [address] [place] [address] CO2 [Moles/Vol] 28 mmol/L Normal 21-31 [facility] Comment on above: Performed By: #### 1 5405562, 9990958 ####[facility] [address] [place] [address] Creatinine [Mass/Vol] 0.6 mg/dL Normal 0.5-1.3 [facility] Comment on above: Performed By: #### 1 3731204, 0269121 ####[facility] [address] [place] [address] Glucose [Mass/Vol] 147 mg/dL Normal 55-199 [facility] Comment on above: Result Comment: If t his glucose result represents a fasting glucose, interpretation should refer to the following reference range: 55-99 mg/dL Performed By: #### 1 2791415, 2116515 ####[facility] [address] [place] [address] Potassium [Moles/Vol] 3.6 mmol/L Normal 3.5-5.3 [facility] Comment on above: Performed By: #### 1 0591568, 1667498 ####[facility] [address] [place] [address] Sodium [Moles/Vol] 132 mmol/L Low 135-145 [facility] Comment on above: Performed By: #### 1 2885636, 1823747 ####[facility] [address] [place] [address] Urea nitrogen [Mass/Vol] 28 mg/dL High 5-21 [facility] Comment on above: Performed By: #### 1 6520411, 9552562 ####[facility] [address] [place] [address] Urea nitrogen/Creatinine [Mass ratio] 47 No Units High 10-20 [facility] Comment on above: Performed By: #### 1 3432474, 4562999 ####[facility] [address] [place] [address] Capillary Glucose POCon 02-08 Glucose [Mass/Vol] 95 mg/dL Normal 55-99 [facility] Comment on above: Result Comment: Nuno aranda RN/ Performed By: #### 2 74832759 ####[facility] [address] [place] [address] Glucose [Mass/Vol] 115 mg/dL High 55-99 [facility] Comment on above: Result Comment: Nuno aranda RN/ Performed By: #### 2 88527574 ####[facility] [address] [place] [address] Glucose [Mass/Vol] 153 mg/dL High 55-99 [facility] Comment on above: Result Comment: Nuno MARIN Performed By: #### 2 85436059 ####[facility] [address] [place] [address] Glucose [Mass/Vol] 111 mg/dL High 55-99 [facility] Comment on above: Result Comment: Nuno aranda RN/ Performed By: #### 2 38528975 ####[facility] [address] [place] [address] Coding Queryon 02-27-2023 Coding Query Normal [facility] Coding Query Normal [facility] Interdisciplinary Note - Michelet e Manageron 02-27-2023 Interdisciplinary Note - Resident Care Aide Normal [facility] Comment on above: Result Comment: Elec tronically Signed By: Sonia Morejon\.br\Date and Time Signed: 02/27/23 15:31 EDT Progress Note-Physicianon Progress Note-Physician Normal [facility] Comment on above: Result Comment: Elec tronically Signed By: Ramos HERRING MD\.br\Date and Time Signed: 02/27/23 10:31 EDT eGFRon 02-27-2023 GFR/1.73 sq M.predicted among non-blacks MDRD (S/P/Bld) [Vol rate/Area] 100 mL/min/1.73 m2 Normal >=59 [facility] Comment on above: Order Comment: Order added by Discern Expert. Result Comment: Fluid Pump Operator alen kidney disease could be indicated at eGFR's of less than 60 mL/min/1.73m2. Kidney failure is indicated at less than 15 mL/min/1.73m2. Performed By: #### 1 [id number], 5255776 ####[facility] [address] [place] [address] CT Head or Brain w/o Contras ton 02-26-2023 CT Head or Brain w/o Contrast Normal [facility] CT Spine Cervical w/o Contra ston 02-26-2023 CT Spine Cervical w/o Contrast Normal [facility] Capillary Glucose POCon 02-08 Glucose [Mass/Vol] 127 mg/dL High 55-99 [facility] Comment on above: Result Comment: Nuno MARIN Performed By: #### 2 09292363 ####[facility] [address] [place] [address] Glucose [Mass/Vol] 121 mg/dL High 55-99 [facility] Comment on above: Result Comment: Nuno MARIN Performed By: #### 2 38562603 ####[facility] [address] [place] [address] Glucose [Mass/Vol] 169 mg/dL High 55- [facility] Comment on above: Result Comment: Nuno MARIN Performed By: #### 2 21204267 ####[facility] [address] [place] [address] Glucose [Mass/Vol] 140 mg/dL High 55-99 [facility] Comment on above: Result Comment: Nuno aranda RN/ Performed By: #### 2 05348671 ####[facility] [address] [place] [address] Glucose [Mass/Vol] 169 mg/dL High 55-99 [facility] Comment on above: Performed By: #### 2 04763098 ####[facility] [address] [place] [address] Interdisciplinary Note - Michelet e Manageron 02-26-2023 Interdisciplinary Note - Resident Care Aide Normal [facility] Comment on above: Result Comment: Elec tronically Signed By: Sonia Morejon\Date and Time Signed: 02/26/23 10:51 EDT Progress Note-Physicianon Progress Note-Physician Normal [facility] Comment on above: Result Comment: Elec tronically Signed By: Beti HERRING MDbr\Date and Time Signed: 02/26/23 10:17 EDT C Urineon 02-25-2023 Bacteria identified Cx Nom (U) Normal [facility] Comment on above: Performed By: #### 1 4690601, 5554322 ####[facility] [address] [place] [address] Capillary Glucose POCon 02-07 Glucose [Mass/Vol] 133 mg/dL High 55-99 [facility] Comment on above: Result Comment: Nuno aranda RN/ Performed By: #### 2 82889288 ####[facility] [address] [place] [address] Glucose [Mass/Vol] 91 mg/dL Normal 55-99 [facility] Comment on above: Result Comment: Sayra francia Meter Performed By: #### 2 06620108 ####[facility] [address] [place] [address] Glucose [Mass/Vol] 155 mg/dL High 55-99 [facility] Comment on above: Result Comment: Nuno MARIN Performed By: #### 2 52128580 ####[facility] [address] [place] [address] Consultation Noteon 02-26-20 Consultation Note Normal [facility] Comment on above: Result Comment: Elec tronically Signed By: Chong Coe M.D\Date and Time Signed: 02/25/23 09:21 EDT Interdisciplinary Note - Michelet e Manageron 02-25-2023 Interdisciplinary Note - Resident Care Aide Normal [facility] Comment on above: Result Comment: Elec tronically Signed By: Дмитрий GUARDADO, Alla\.br\Date and Time Signed: 02/25/23 13:11 EDT Interdisciplinary Note - Ashley n 02-25-2023 Interdisciplinary Note - OT Normal [facility] Interdisciplinary Note - PTo n 02-25-2023 Interdisciplinary Note - PT Normal [facility] Progress Note-Physicianon Progress Note-Physician Normal [facility] Comment on above: Result Comment: Elec tronically Signed By: Manav Tinajero MD\.br\Date and Time Signed: 02/25/23 21:58 EDT Progress Note-Physician Normal [facility] Comment on above: Result Comment: Elec tronically Signed By: NEVAEH WISE, Ramos\.br\Date and Time Signed: 02/25/23 11:37 EDT Auto Diffon 02-24-2023 Basophils/100 WBC (Bld) 0.5 % Normal 0.0-2.0 [facility] Comment on above: Order Comment: Order Added by Discern Expert. Performed By: #### 2 353214, 5160658, 4230011, 987789610, 50710264, 5924942 ####[facility] [address] [place] [address] Basophils/Leukocytes Auto (Bld) [Pure # fraction] 0.0 E9/L Normal 0.0-0.2 [facility] Comment on above: Order Comment: Order Added by Discern Expert. Performed By: #### 2 564986, 9414367, 2878003, 355294944, 11907177, 7956611 ####[facility] [address] [place] [address] Eosinophils/100 WBC (Bld) 0.4 % Normal 0.0-8.0 [facility] Comment on above: Order Comment: Order Added by Discern Expert. Performed By: #### 2 380359, 0322973, 6135313, 810323482, 87717810, 1778377 ####[facility] [address] [place] [address] Eosinophils/Leukocytes Auto (Bld) [Pure # fraction] 0.0 E9/L Normal 0.0-0.5 [facility] Comment on above: Order Comment: Order Added by Discern Expert. Performed By: #### 2 807822, 5836004, 7326657, 590026309, 83394529, 1955663 ####[facility] [address] [place] [address] Lymphocytes/100 WBC (Bld) 6.2 % Low 14.0-50.0 [facility] Comment on above: Order Comment: Order Added by Discern Expert. Performed By: #### 2 401069, 8274860, 7819602, 784860469, 12702032, 0007467 ####[facility] [address] [place] [address] Lymphocytes/Leukocytes Auto (Bld) [Pure # fraction] 0.4 E9/L Low 1.0-4.0 [facility] Comment on above: Order Comment: Order Added by Cristiano Expert. Performed By: #### 2 834638, 7148520, 1278445, 555029847, 93867833, 7317949 ####[facility] [address] [place] [address] Monocytes/100 WBC (Bld) 12.6 % Normal 4.0-14.0 [facility] Comment on above: Order Comment: Order Added by Discern Expert. Performed By: #### 2 532106, 1535760, 2290919, 980071866, 57451727, 5936445 ####[facility] [address] [place] [address] Monocytes/Leukocytes Auto (Bld) [Pure # fraction] 0.8 E9/L Normal 0.2-1.0 [facility] Comment on above: Order Comment: Order Added by Cristiano Expert. Performed By: #### 2 195919, 5352517, 7431833, 493830427, 91332075, 9069203 ####[facility] [address] [place] [address] Neutrophils/100 WBC (Bld) 80.3 % High 36.0-75.0 [facility] Comment on above: Order Comment: Order Added by Discern Expert. Performed By: #### 2 769089, 2845490, 1519500, 304512256, 89511444, 4026597 ####[facility] [address] [place] [address] Neutrophils/Leukocytes Auto (Bld) [Pure # fraction] 5.4 E9/L Normal 2.0-7.5 [facility] Comment on above: Order Comment: Order Added by Discern Expert. Performed By: #### 2 530033, 6160667, 7247862, 361823591, 23022194, 9366060 ####[facility] [address] [place] [address] BMPon 02-24-2023 Anion gap [Moles/Vol] 10 mmol/L Normal 6-16 [facility] Comment on above: Performed By: #### 2 391330, 1684837, 9403496, 281942557, 13269738, 3139665 ####[facility] [address] [place] [address] Calcium [Mass/Vol] 8.1 mg/dL Low 8.9-11.1 [facility] Comment on above: Performed By: #### 2 145744, 2090835, 9005223, 417052261, 86295525, 4395615 ####[facility] [address] [place] [address] Chloride [Moles/Vol] 98 mmol/L Low 101-111 [facility] Comment on above: Performed By: #### 2 356847, 8311395, 7417908, 339112021, 04225519, 1852738 ####[facility] [address] [place] [address] CO2 [Moles/Vol] 25 mmol/L Normal 21-31 [facility] Comment on above: Performed By: #### 2 889934, 4887645, 9854403, 440288478, 39111090, 2153026 ####[facility] [address] [place] [address] Creatinine [Mass/Vol] 0.6 mg/dL Normal 0.5-1.3 [facility] Comment on above: Performed By: #### 2 272292, 2621044, 1729379, 617487178, 39654123, 6049078 ####[facility] [address] [place] [address] Glucose [Mass/Vol] 120 mg/dL Normal 55-199 [facility] Comment on above: Result Comment: If t his glucose result represents a fasting glucose, interpretation should refer to the following reference range: 55-99 mg/dL Performed By: #### 2 252742, 8973528, 4830282, 908132862, 93853191, 2115584 ####[facility] [address] [place] [address] Potassium [Moles/Vol] 3.9 mmol/L Normal 3.5-5.3 [facility] Comment on above: Performed By: #### 2 120550, 7137911, 6844586, 216752568, 83225006, 9461735 ####[facility] [address] [place] [address] Sodium [Moles/Vol] 129 mmol/L Low 135-145 [facility] Comment on above: Performed By: #### 2 854779, 9611385, 7178731, 822386984, 27682866, 7214450 ####[facility] [address] [place] [address] Urea nitrogen [Mass/Vol] 16 mg/dL Normal 5-21 [facility] Comment on above: Performed By: #### 2 747737, 2955962, 2210336, 617894810, 68102777, 4188199 ####[facility] [address] [place] [address] Urea nitrogen/Creatinine [Mass ratio] 27 No Units High 10-20 [facility] Comment on above: Performed By: #### 2 676184, 3052798, 6823881, 559770000, 33218391, 2411750 ####[facility] [address] [place] [address] CBC w/ Auto Diffon 3 Erythrocyte distribution width (RBC) [Ratio] 19.1 % High 10.9-14.2 [facility] Comment on above: Performed By: #### 2 085770, 6281141, 2817194, 647385803, 52205949, 8893211 ####[address] [place] [address] Hematocrit (Bld) [Volume fraction] 22.3 % Low 37.7-49.0 [facility] Comment on above: Performed By: #### 2 562366, 1039838, 7182369, 920422286, 90144594, 8482858 ####[address] [address] Hemoglobin (Bld) [Mass/Vol] 7.3 g/dL Low 13.5-17.5 [facility] Comment on above: Performed By: #### 2 673798, 1052650, 2920890, 370689783, 54948799, 8954301 ####[address] [address] MCH (RBC) [Entitic mass] 27.3 pg Normal 27.0-34.0 [facility] Comment on above: Performed By: #### 2 225494, 9884891, 4044850, 433941819, 75980769, 8810054 ####[address] [address] MCHC (RBC) [Mass/Vol] 32.6 g/dL Normal 31.4-36.0 [facility] Comment on above: Performed By: #### 2 279902, 2758174, 4467884, 045410255, 74913324, 8554683 ####[address] [place] [address] MCV (RBC) [Entitic vol] 83.8 fL Normal 80.0-100.0 [facility] Comment on above: Performed By: #### 2 264114, 5279207, 9280479, 326976290, 17879275, 1776184 ####[facility] [address] [place] [address] Platelet mean volume (Bld) [Entitic vol] 8.8 fL Normal 6.4-10.8 [facility] Comment on above: Performed By: #### 2 040057, 4761689, 0307885, 864895037, 82244244, 3235432 ####[facility] [address] [place] [address] Platelets (Bld) [#/Vol] 192.0 E9/L Normal 150.0-500.0 [facility] Comment on above: Performed By: #### 2 495812, 2841374, 5925865, 505752453, 10073419, 3758795 ####[address] [address] RBC (Bld) [#/Vol] 2.7 E12/L Low 4.3-5.9 [facility] Comment on above: Performed By: #### 2 831758, 9423428, 6880971, 440126153, 42900048, 0790008 ####[facility] [address] [place] [address] WBC corrected for nucl RBC Auto (Bld) [#/Vol] 6.7 E9/L Normal 4.0-11.0 [facility] Comment on above: Performed By: #### 2 259891, 2334023, 0063598, 562695349, 13847508, 5658350 ####[facility] [address] [place] [address] CHEMISTRYOrdered By: Caity Roman on 02-24-2023 CK [Catalytic activity/Vol] 21 [iU]/d Normal 14 - 261 Int._Unit/L FT Remisol CHEMISTRYOrdered By: Fidel Peterson on 02-24-2023 HbA1c (Bld) [Mass fraction] 5.2 % Normal <=5.9% FT ChemAutoSS CKon 02-24-2023 CK [Catalytic activity/Vol] 21 Int._Unit/L Normal 14-261 [facility] Comment on above: Performed By: #### 2 749470, 0365799, 1336560, 820068784, 79115715, 5523472 ####[facility] [address] [place] [address] Capillary Glucose POCon 02-07 Glucose [Mass/Vol] 149 mg/dL High 55-99 [facility] Comment on above: Result Comment: Nuno aranda RN/ Performed By: #### 2 [id number] ####[facility] [address] [place] [address] Glucose [Mass/Vol] 129 mg/dL High 55-99 [facility] Comment on above: Result Comment: Nuno MARIN Performed By: #### 2 [id number] ####[facility] [address] [place] [address] Glucose [Mass/Vol] 123 mg/dL High 55-99 [facility] Comment on above: Result Comment: Nuno MARIN Performed By: #### 2 [id number] ####[facility] [address] [place] [address] Glucose [Mass/Vol] 211 mg/dL High 55-99 [facility] Comment on above: Result Comment: Nuno MARIN Performed By: #### 2 [id number] ####[facility] [address] [place] [address] VoxD8xpo 02-24-2023 HbA1c (Bld) [Mass fraction] 5.2 % Normal <=5.9 [facility] Comment on above: Performed By: #### 2 473188, 5242984, 2250172, 198989419, 65172892, 9901411 ####[facility] [address] [place] [address] Interdisciplinary Note - Michelet e Manageron 02-24-2023 Interdisciplinary Note - Resident Care Aide Normal [facility] Comment on above: Result Comment: Elec tronically Signed By: Sonia Morejon\.br\Date and Time Signed: 02/24/23 12:26 EDT Interdisciplinary Note - Nut ritionon 02-24-2023 Interdisciplinary Note - Nutrition Normal [facility] Comment on above: Result Comment: Elec tronically Signed By: Lucas MEADOWS, Misty ENRIQUE\.br\Date and Time Signed: 02/24/23 14:00 EDT\.br\Electronically Co-Signed By: NEVAEH WISE, Ramos\.br\Date and Time Co-Signed: 02/27/23 18:24 EDT Message from Medicareon 02-07 Message from Medicare [id number]:127 Normal [facility] Progress Note-Physicianon Progress Note-Physician Normal [facility] Comment on above: Result Comment: Elec tronically Signed By: NEVAEH WISE, Ramos\.br\Date and Time Signed: 02/24/23 11:12 EDT UA With Cult Reflexon 2022 UA Spec Desc Catheter Normal [facility] Comment on above: Result Comment: cath . specimen Performed By: #### 1 [id number], [id number] ####[facility] [address] [place] [address] eGFRon 02-24-2023 GFR/1.73 sq M.predicted among non-blacks MDRD (S/P/Bld) [Vol rate/Area] 100 mL/min/1.73 m2 Normal >=59 [facility] Comment on above: Order Comment: Order added by Discern Expert. Result Comment: Fluid Pump Operator alen kidney disease could be indicated at eGFR's of less than 60 mL/min/1.73m2. Kidney failure is indicated at less than 15 mL/min/1.73m2. Performed By: #### 2 920479, 2071262, 4328979, 330019893, 97619901, 2486632 ####[facility] [address] [place] [address] Auto Diffon 02-23-2023 Basophils/100 WBC (Bld) 0.8 % Normal 0.0-2.0 [facility] Comment on above: Order Comment: Order Added by Discern Expert. Performed By: #### 2 514015, 5443027, 6846068, 46386349, 65763767, 71773894, 9165712 ####[facility] [address] [place] [address] Basophils/Leukocytes Auto (Bld) [Pure # fraction] 0.1 E9/L Normal 0.0-0.2 [facility] Comment on above: Order Comment: Order Added by Discern Expert. Performed By: #### 2 592115, 5568311, 9064593, 43455722, 03260481, 90918939, 7918025 ####[address] [place] [address] Eosinophils/100 WBC (Bld) 0.7 % Normal 0.0-8.0 [facility] Comment on above: Order Comment: Order Added by Discern Expert. Performed By: #### 2 444971, 1268708, 9112458, 74291497, 52195101, 72322710, 5753845 ####[address] [address] Eosinophils/Leukocytes Auto (Bld) [Pure # fraction] 0.0 E9/L Normal 0.0-0.5 [facility] Comment on above: Order Comment: Order Added by Discern Expert. Performed By: #### 2 540106, 2840464, 7416001, 93822698, 16502722, 13200336, 7860246 ####[facility] [address] [place] [address] Lymphocytes/100 WBC (Bld) 4.0 % Low 14.0-50.0 [facility] Comment on above: Order Comment: Order Added by Discern Expert. Performed By: #### 2 994299, 6073046, 3319088, 80142343, 69796424, 83033040, 1827913 ####[facility] [address] [place] [address] Lymphocytes/Leukocytes Auto (Bld) [Pure # fraction] 0.3 E9/L Low 1.0-4.0 [facility] Comment on above: Order Comment: Order Added by Discern Expert. Performed By: #### 2 108911, 4529477, 2054940, 64562944, 26512477, 24166915, 4205747 ####[facility] [address] [place] [address] Monocytes/100 WBC (Bld) 13.0 % Normal 4.0-14.0 [facility] Comment on above: Order Comment: Order Added by Discern Expert. Performed By: #### 2 291647, 6285237, 9477333, 82437882, 07009466, 21417036, 7254689 ####[address] [place] [address] Monocytes/Leukocytes Auto (Bld) [Pure # fraction] 1.0 E9/L Normal 0.2-1.0 [facility] Comment on above: Order Comment: Order Added by Discern Expert. Performed By: #### 2 768112, 4237424, 7954773, 85142216, 19456160, 21802487, 6348387 ####[address] [place] [address] Neutrophils/100 WBC (Bld) 81.5 % High 36.0-75.0 [facility] Comment on above: Order Comment: Order Added by Discern Expert. Performed By: #### 2 302224, 8375112, 5488939, 36949686, 63457004, 73328478, 5165382 ####[facility] [address] [place] [address] Neutrophils/Leukocytes Auto (Bld) [Pure # fraction] 6.1 E9/L Normal 2.0-7.5 [facility] Comment on above: Order Comment: Order Added by Discern Expert. Performed By: #### 2 063147, 8852208, 9072338, 43390900, 94961013, 90791660, 9259982 ####[facility] [place] [address] BMPon 02-23-2023 Creatinine [Mass/Vol] 0.7 mg/dL Normal 0.5-1.3 [facility] Comment on above: Performed By: #### 2 160980, 2286865, 6654830, 47322823, 05025550, 48715106, 8564537 ####[facility] [address] [place] [address] Urea nitrogen [Mass/Vol] 17 mg/dL Normal 5-21 [facility] Comment on above: Performed By: #### 2 504922, 8583410, 5866198, 67768489, 25856048, 59526012, 5947986 ####[facility] [address] [place] [address] Urea nitrogen/Creatinine [Mass ratio] 24 No Units High 10-20 [facility] Comment on above: Performed By: #### 2 969829, 5604192, 6791617, 92329221, 15662840, 82174778, 5472509 ####[facility] [address] [place] [address] Anion gap [Moles/Vol] 12 mmol/L Normal 6-16 [facility] Comment on above: Performed By: #### 2 770520, 1927545, 7195968, 43013350, 71634945, 96357918, 4998345 ####[facility] [address] [place] [address] Calcium [Mass/Vol] 8.3 mg/dL Low 8.9-11.1 [facility] Comment on above: Performed By: #### 2 151337, 4879850, 6341954, 85646582, 02538269, 07516383, 0172322 ####[facility] [address]Nor[address] [place] [address] Chloride [Moles/Vol] 94 mmol/L Low 101-111 [place] Comment on above: Performed By: #### 2 236238, 9380708, 3701355, 12442249, 70966160, 44633085, 2955938 ####[facility] [address] [place] [address] CO2 [Moles/Vol] 25 mmol/L Normal 21-31 [facility] Comment on above: Performed By: #### 2 213622, 4326335, 4478128, 12306667, 96443482, 54948267, 5625704 ####[facility] [address] [place] [address] Glucose [Mass/Vol] 128 mg/dL Normal 55-199 [facility] Comment on above: Result Comment: If t his glucose result represents a fasting glucose, interpretation should refer to the following reference range: 55-99 mg/dL Performed By: #### 2 167462, 3061024, 6562771, 15893279, 08462215, 82350372, 4775791 ####[facility] [address] [place] [address] Potassium [Moles/Vol] 4.1 mmol/L Normal 3.5-5.3 [facility] Comment on above: Performed By: #### 2 303879, 4011538, 0585005, 00983488, 73334857, 27544624, 2173127 ####[facility] [address] [place] [address] Sodium [Moles/Vol] 127 mmol/L Low 135-145 [facility] Comment on above: Performed By: #### 2 350752, 7546699, 1140441, 74382069, 77625017, 03725986, 8088393 ####[address] [place] [address] CBC w/ Auto Diffon 3 Erythrocyte distribution width (RBC) [Ratio] 19.6 % High 10.9-14.2 [facility] Comment on above: Performed By: #### 2 516908, 7873904, 6531233, 37112651, 13004218, 89556784, 4748243 ####[facility] [address] [place] [address] Hematocrit (Bld) [Volume fraction] 23.8 % Low 37.7-49.0 [facility] Comment on above: Performed By: #### 2 475118, 4773406, 6998409, 64439775, 91035119, 18806525, 2255186 ####[facility] [address] [place] [address] Hemoglobin (Bld) [Mass/Vol] 7.4 g/dL Low 13.5-17.5 [facility] Comment on above: Performed By: #### 2 705785, 8181297, 6309142, 54032296, 88156141, 75515544, 2957136 ####[facility] [address] [place] [address] MCH (RBC) [Entitic mass] 26.6 pg Low 27.0-34.0 [facility] Comment on above: Performed By: #### 2 171263, 9380858, 5181807, 05981411, 78758905, 58181178, 5323244 ####[facility] [address] [place] [address] MCHC (RBC) [Mass/Vol] 31.1 g/dL Low 31.4-36.0 [facility] Comment on above: Performed By: #### 2 174211, 9314279, 0567509, 58999751, 46620271, 39133899, 7689876 ####[facility] [address] [place] [address] MCV (RBC) [Entitic vol] 85.5 fL Normal 80.0-100.0 [facility] Comment on above: Performed By: #### 2 930694, 8273979, 1998951, 26738705, 18914567, 13400772, 3288500 ####[address] [place] [address] Platelet mean volume (Bld) [Entitic vol] 8.3 fL Normal 6.4-10.8 [facility] Comment on above: Performed By: #### 2 374133, 3819487, 1794372, 22399546, 46689494, 84442027, 4567990 ####[facility] [address] [place] [address] Platelets (Bld) [#/Vol] 188.0 E9/L Normal 150.0-500.0 [facility] Comment on above: Performed By: #### 2 453424, 5350915, 4081453, 50052196, 64320318, 59626277, 8571998 ####[facility] [address] [place] [address] RBC (Bld) [#/Vol] 2.8 E12/L Low 4.3-5.9 [facility] Comment on above: Performed By: #### 2 468111, 5779927, 1261175, 03592898, 34820662, 27397190, 2992467 ####[facility] [address] [place] [address] WBC corrected for nucl RBC Auto (Bld) [#/Vol] 7.4 E9/L Normal 4.0-11.0 [facility] Comment on above: Performed By: #### 2 235689, 6688345, 4205694, 57092889, 07948469, 42298891, 6925443 ####[facility] [address] [place] [address] CHEMISTRYOrdered By: SYSTEM SYSTEM on 02-23-2023 Amphetamines Screen method >1000 ng/mL Ql (U) Negative (02/23/23 11:47 AM) Normal Negative [facility] Barbiturates Screen Ql (U) Negative (02/23/23 11:47 AM) Normal Negative [facility] Benzodiazepines Ql (U) Negative (02/23/23 11:47 AM) Normal Negative [facility] Cocaine Ql (U) Negative (02/23/23 11:47 AM) Normal Negative [facility] Opiates Screen Ql (U) Negative (02/23/23 11:47 AM) Normal Negative [facility] Phencyclidine Screen method >25 ng/mL Ql (U) Negative (02/23/23 11:47 AM) Normal Negative [facility] Tetrahydrocannabinol Screen method >50 ng/mL Ql (U) Positive 2 *ABN* (02/23/23 11:47 AM) Invalid Interpretation Code Negative [facility] Comment on above: Result Comment: Crit ical Result verified by repeat analysis\Critical Result UD_THC:POS Called to ANGIE JEAN AT by RAJAN HERBERT And Read Back For Confirmation at: 02/23/2023 12:38:36 Albumin [Mass/Vol] 2.4 g/dL Low 3.3 - 5.0 gm/dL [facility] Albumin/Globulin [Mass ratio] 0.6 {ratio} Low 1.1 - 2.2 [facility] ALP [Catalytic activity/Vol] 91 [iU]/d Normal 21 - 98 Int._Unit/L [facility] ALT No additional P-5'-P [Catalytic activity/Vol] 27 [iU]/d Normal 6 - 46 Int._Unit/L [facility] AST [Catalytic activity/Vol] 21 [iU]/d Normal 5 - 43 Int._Unit/L [facility] Bilirubin [Mass/Vol] 0.7 mg/dL Normal 0.0 - 1 .1 mg/dL [facility] Bilirubin.direct [Mass/Vol] 0.2 mg/dL Normal 0.1 - 0.4 mg/dL [facility] Bilirubin.indirect [Mass or moles/Vol] 0.5 mg/dL Normal 0.1 - 0.9 mg/dL [facility] Ethanol [Mass/Vol] mg/dL Normal <=7mg/dL [facility] Globulin (S) [Mass/Vol] 4.4 g/dL High 1.4 - 4.0 gm/dL [facility] Protein [Mass/Vol] 6.8 g/dL Normal 6.0 - 7.8 gm/dL [facility] Troponin I.cardiac [Mass/Vol] 6.20 pg/mL Low 15.90 - 38.40 pg/mL [facility] COAGULATIONOrdered By: Elodia Camarillo on 02-23-2023 aPTT Coag (PPP) [Time] 33.4 s Normal 25.1 - 36.5 second(s) [facility] Auto Coag INR Coag (PPP) [Relative time] 1.3 {INR} Invalid Interpretation Code [facility] Auto Coag PT Coag (PPP) [Time] 14.4 s High 9.4 - 1 2.5 second(s) [facility] Auto Coag CT Head or Brain w/o Contras ton 02-23-2023 CT Head or Brain w/o Contrast Normal [facility] Capillary Glucose POCon 02-07 Glucose [Mass/Vol] 100 mg/dL High 55-99 [facility] Comment on above: Result Comment: Nuno aranda RN/ Performed By: #### 2 [id number] ####[facility] [address] [place] [address] Glucose [Mass/Vol] 168 mg/dL High 55-99 [facility] Comment on above: Result Comment: Nuno MARIN Performed By: #### 2 [id number] ####[facility] [address] [place] [address] Consent for Treatmenton 02-07 Consent for Treatment [id number]:127 Normal [facility] ED Clinical Summaryon 2022 ED Clinical Summary Normal [facility] ED Note-Physicianon 02-24-20 ED Note-Physician Normal [facility] Comment on above: Result Comment: Elec tronically Signed By: Luz WISE, Kwasi\.br\Date and Time Signed: 02/23/23 14:17 EDT ED Patient Education Noteon 02-23-2023 ED Patient Education Note Normal [facility] ED Patient Summaryon 023 ED Patient Summary Normal [facility] Ethanolon 02-23-2023 Ethanol [Mass/Vol] mg/dL Normal <=7 [facility] Comment on above: Performed By: #### 2 517265 ####[facility] [address] [place] [address] Hep Func Panelon 02-23-2023 Albumin [Mass/Vol] 2.4 g/dL Low 3.3-5.0 [facility] Comment on above: Performed By: #### 2 532789, 1888034, 2506408, 56570250, 72842778, 24773783, 8223822 ####[facility] [address] [place] [address] Albumin/Globulin (S) [Mass conc ratio] 0.6 Low 1.1-2.2 [facility] Comment on above: Performed By: #### 2 100408, 1343746, 2113957, 73886042, 36020097, 05793567, 9107210 ####[facility] [address] [place] [address] ALP [Catalytic activity/Vol] 91 Int._Unit/L Normal 21-98 [facility] Comment on above: Performed By: #### 2 101971, 6176673, 8553837, 40586082, 65688453, 17377128, 0535604 ####[facility] [address] [place] [address] ALT No additional P-5'-P [Catalytic activity/Vol] 27 Int._Unit/L Normal 6-46 [facility] Comment on above: Performed By: #### 2 341207, 7040319, 0872960, 32743585, 34915165, 87957381, 2145766 ####[facility] [address] [place] [address] AST [Catalytic activity/Vol] 21 Int._Unit/L Normal 5-43 [facility] Comment on above: Performed By: #### 2 754559, 5440783, 5655708, 65482228, 79362916, 70172846, 2272540 ####[facility] [address] [place] [address] Bilirubin [Mass/Vol] 0.7 mg/dL Normal 0.0-1.1 [place] Comment on above: Performed By: #### 2 103150, 5735352, 9904716, 07627341, 93684592, 69132436, 7060438 ####[facility] [address] [place] [address] Bilirubin.direct [Mass/Vol] 0.2 mg/dL Normal 0.1-0.4 [facility] Comment on above: Performed By: #### 2 761666, 1790815, 6855057, 78160440, 45184974, 25310389, 2093434 ####[facility] [address] [place] [address] Bilirubin.indirect [Mass or moles/Vol] 0.5 mg/dL Normal 0.1-0.9 [facility] Comment on above: Performed By: #### 2 132612, 7823863, 9210033, 80173153, 99664110, 37221382, 4552741 ####[facility] [address] [place] [address] Globulin (S) [Mass/Vol] 4.4 g/dL High 1.4-4.0 [facility] Comment on above: Performed By: #### 2 665282, 6034842, 9078243, 39511354, 25137595, 22109444, 3377578 ####[facility] [address] [place] [address] Protein [Mass/Vol] 6.8 g/dL Normal 6.0-7.8 [facility] Comment on above: Performed By: #### 2 745921, 3344086, 9075477, 29102978, 45197561, 78772363, 7964174 ####[facility] [address] [place] [address] Laboratory - Microbiology an d Antimicrobial susceptibilityOrdered By: Sabiha Ayala on 02-23-2023 Bacteria identified Cx Nom (U) No growth at 2 days. [facility] Monitor Recordon 02-23-2023 Monitor Record [id number]:127 Normal [facility] No Panel InformationOrdered By: Meaghan Pinzon on 02-23-2023 Blood Culture Charcoal No growth at 7 days. [facility] Blood Culture Charcoal No growth at 7 days. [facility] PT & PTTon 02-23-2023 aPTT Coag (PPP) [Time] 33.4 second(s) Normal 25.1-36.5 [facility] Comment on above: Result Comment: Para meter 15 days - 4 weeks 1 - 5 months 6 - 11 months 1 - 5 years 6 - 10 years 11 - 17 years PTT Mean: 35.4 (27.6-45.6) Mean: 33.5 (24.8-40.7) Mean: 32.4 (25.1-40.7) Mean: 31.6 (24.0-39.2) Mean: 31.6 (26.9-38.7) Mean: 31.0 (24.6-38.4) Pediatric Reference ranges were obtained from a study by ru Livingston al. prepared from 1437 samples obtained at 7 different centers using the same coagulation reagent and instrumentation as [facility]. Currently there are no coagulation studies available worldwide for children to 14 days, and no normal ranges. Heparin therapeutic range (represented by Anti-Factor Xa activity of 0.2 - 0.4 U/mL) corresponds to PTT of 56.6 - 109.0 sec. Performed By: #### 2 224825, 3559137, 4889927, 22618391, 60065620, 91472686, 1127665 ####[facility] [address] [place] [address] INR Coag (PPP) [Relative time] 1.3 {INR} Invalid Interpretation Code [facility] Comment on above: Result Comment: INR results are specifically intended to assess patients stabilized on long-term Anticoagulation therapy suggested INR?s ?Less Intensive Anticoagulation? 2.0 ? 3.0Conventional Range 3.0 ? 4.5 Performed By: #### 2 860114, 9536547, 6964631, 29957657, 37419192, 71975995, 1084195 ####[facility] [address] [place] [address] PT Coag (PPP) [Time] 14.4 second(s) High 9.4-12.5 [facility] Comment on above: Result Comment: 15 d ays - 4 weeks 1 - 5 months 6 -11 months 1 ? 5 years 6 ? 10 years 11 -17 years Mean: 11.2 (9.5 ? 12.6) Mean: 11.0 (9.7 ? 12.8) Mean: 11.0 (9.8 ? 13.0) Mean: 11.3 (9.9 ? 13.4) Mean: 11.7 (10.0 ? 14.6) Mean: 11.8 (10.0 - 14.1) Pediatric Reference ranges were obtained from a study by ru Livingston al. prepared from 1437 samples obtained at 7 different centers using the same coagulation reagent and instrumentation as [facility]. Currently there are no coagulation studies available worldwide for children to 14 days, and no normal ranges. Performed By: #### 2 256190, 6389623, 9326821, 56082538, 22967704, 27842600, 4483166 ####[facility] [address] [place] [address] Troponin 0 Hr.on 02-23-2023 Troponin I.cardiac [Mass/Vol] 6.20 pg/mL Low 15.90-38.40 [facility] Comment on above: Result Comment: The 95% CI (Confidence Interval) PPV (Positive Predictive Value) for myocardial infarction in females is 38 pg/mL, in males 51 pg/mL. The results should be used in conjunction with clinical conditions of myocardial infarction.(Access High Sensitivity Troponin I Instructions For Use, Daljit Rancho, May 2018) Performed By: #### 2 063368, 3585911, 4891339, 64436777, 87701992, 85338748, 9286097 ####[facility] [address] [place] [address] U Drug Screenon 02-23-2023 Tetrahydrocannabinol Screen method >50 ng/mL Ql (U) Positive Abnormal Negative [facility] Comment on above: Result Comment: Crit ical Result verified by repeat analysis\Critical Result UD_THC:POS Called to ANGIE JEAN AT by RAJAN HERBERT And Read Back For Confirmation at: 02/23/2023 12:38:36Negative Cutoff: <50 ng/mL Performed By: #### 2 403685 ####[facility] [address] [place] [address] Amphetamines Screen method >1000 ng/mL Ql (U) Negative Normal Negative [facility] Comment on above: Result Comment: Nega tive Cutoff: <1000 ng/mL Performed By: #### 2 159389 ####[facility] [address] [place] [address] Barbiturates Screen Ql (U) Negative Normal Negative [facility] Comment on above: Result Comment: Nega tive Cutoff: <200 ng/mL Performed By: #### 2 252599 ####[facility] [address] [place] [address] Benzodiazepines Ql (U) Negative Normal Negative [facility] Comment on above: Result Comment: Nega tive Cutoff: <200 ng/mL Performed By: #### 2 768274 ####[facility] [address] [place] [address] Cocaine Ql (U) Negative Normal Negative [facility] Comment on above: Result Comment: Nega tive Cutoff: <300 ng/mL Performed By: #### 2 471480 ####[facility] [address] [place] [address] Opiates Screen Ql (U) Negative Normal Negative [facility] Comment on above: Result Comment: Nega tive Cutoff: <300 ng/mL Performed By: #### 2 376215 ####[facility] [address] [place] [address] Phencyclidine Screen method >25 ng/mL Ql (U) Negative Normal Negative [facility] Comment on above: Result Comment: Nega tive Cutoff: <25 ng/mLThese drug screen results are to be used for medical (i.e., treatment) purposes only. Unconfirmed drug screening results must not be used for non-medical purposes (e.g., employment testing, legal testing). Performed By: #### 2 [id number] ####[facility] [address] [place] [address] UA With Cult Reflexon 2022 Bacteria LM Ql (Urine sed) 2+ /HPF Abnormal Trace [facility] Comment on above: Performed By: #### 1 9454127, 9920230 ####[facility] [address] [place] [address] Bilirubin Ql (U) Negative Normal Negative [facility] Comment on above: Performed By: #### 1 6340338, 9010394 ####[address] [address] Clarity (U) CLEAR Normal Clear [facility] Comment on above: Performed By: #### 1 1215931, 9366687 ####[address] [address] Color (U) YELLOW Normal Yellow [facility] Comment on above: Performed By: #### 1 5111428, 3486938 ####[address] [address] Epithelial cells.squamous LM.HPF (Urine sed) [#/Area] 0-2 Normal 0-2 [facility] Comment on above: Performed By: #### 1 1264435, 9994188 ####[facility] [address] [place] [address] Fine Granular Casts LM Ql (Urine sed) 0-3 Normal [facility] Comment on above: Performed By: #### 1 5588201, 4657447 ####[facility] [address] [place] [address] Glucose Test strip (U) [Mass/Vol] Negative Normal Negative [facility] Comment on above: Performed By: #### 1 0228072, 3790934 ####[facility] [address] [place] [address] Hemoglobin Ql (U) 2+ Abnormal Negative [facility] Comment on above: Performed By: #### 1 4103925, 1443182 ####[facility] [address] [place] [address] Ketones (U) [Mass/Vol] Negative Normal Negative [facility] Comment on above: Performed By: #### 1 9883580, 7692745 ####[facility] [address] [place] [address] Ganado.plasma/Ganado .RBC (Bld) [Mass ratio] 0-3 Normal 0-3 [facility] Comment on above: Performed By: #### 1 9944059, 9971560 ####[facility] [address] [place] [address] Mucus Ql (Urine sed) TRACE Normal [facility] Comment on above: Performed By: #### 1 3883245, 9148416 ####[address] [address] Nitrite Ql (U) Negative Normal Negative [facility] Comment on above: Performed By: #### 1 0966646, 2913440 ####[facility] [address] [place] [address] pH (U) 6.5 [pH] Invalid Interpretation Code 5.0-9.0 [facility] Comment on above: Performed By: #### 1 5165177, 5517038 ####[facility] [address] [place] [address] Protein (U) [Mass/Vol] 2+ Abnormal Negative [facility] Comment on above: Performed By: #### 1 8120648, 1392939 ####[facility] [address] [place] [address] Specific gravity (U) [Rel density] 1.020 Invalid Interpretation Code 1.005-1.030 [facility] Comment on above: Performed By: #### 1 1149534, 7223531 ####[facility] [address] [place] [address] Urobilinogen Qn (U) 0.2 {Mercedes'U}/dL Normal 0.0-1.0 [facility] Comment on above: Performed By: #### 1 6387974, 8851215 ####[facility] [address] [place] [address] WBC Auto Ql (U) Negative Normal Negative [facility] Comment on above: Performed By: #### 1 2662031, 0161256 ####[facility] [address] [place] [address] WBC LM.HPF (Urine sed) [#/Area] 0-5 Normal 0-5 [facility] Comment on above: Performed By: #### 1 8127737, 2508418 ####[facility] [address] [place] [address] URINALYSISOrdered By: Elodia puckett on 02-23-2023 Bacteria LM Ql (Urine sed) 2+ /HPF Invalid Interpretation Code Trace/HPF [facility] UA Auto SS Bilirubin Ql (U) Negative (02/23/23 11:47 AM) Normal Negative [facility] UA Auto SS Clarity (U) Clear (02/23/23 11:47 AM) Normal Clear [facility] UA Auto SS Color (U) Yellow (02/23/23 11:47 AM) Normal Yellow [facility] UA Auto SS Epithelial cells.squamous LM.HPF (Urine sed) [#/Area] 0-2 /HPF Normal 0-2/HPF [facility] UA Auto SS Fine Granular Casts LM Ql (Urine sed) 0-3 (02/23/23 11:47 AM) Normal [facility] UA Auto SS Glucose Test strip (U) [Mass/Vol] Negative (02/23/23 11:47 AM) Normal Negative [facility] UA Auto SS Hemoglobin Ql (U) 2+ *ABN* (02/23/23 11:47 AM) Invalid Interpretation Code Negative [facility] UA Auto SS Ketones (U) [Mass/Vol] Negative (02/23/23 11:47 AM) Normal Negative [facility] UA Auto SS Ganado.plasma/Ganado .RBC (Bld) [Mass ratio] 0-3 /HPF Normal 0-3/HPF [facility] UA Auto SS Mucus Ql (Urine sed) Trace (02/23/23 11:47 AM) Normal [facility] UA Auto SS Nitrite Ql (U) Negative (02/23/23 11:47 AM) Normal Negative [facility] UA Auto SS pH (U) 6.5 *NA* (02/23/23 11:47 AM) Invalid Interpretation Code 5.0 - 9.0 [facility] UA Auto SS Protein (U) [Mass/Vol] 2+ *ABN* (02/23/23 11:47 AM) Invalid Interpretation Code Negative [facility] UA Auto SS Specific gravity (U) [Rel density] 1.020 *NA* (02/23/23 11:47 AM) Invalid Interpretation Code 1.005 - 1.030 [facility] UA Auto SS UA Spec Desc Catheter 1 (02/23/23 11:47 AM) Normal [facility] UA Auto SS Comment on above: Result Comment: cath . specimen Urobilinogen Qn (U) 0.4347653 {Mercedes'U}/dL Normal 0.0 - 1.0 EU/dL [facility] UA Auto SS WBC Auto Ql (U) Negative (02/23/23 11:47 AM) Normal Negative [facility] UA Auto SS WBC LM.HPF (Urine sed) [#/Area] 0-5 /HPF Normal 0-5/HPF [facility] UA Auto SS XR Chest Single Viewon 02-23 XR Chest Single View Normal [facility] eGFRon 02-23-2023 GFR/1.73 sq M.predicted among non-blacks MDRD (S/P/Bld) [Vol rate/Area] 95 mL/min/1.73 m2 Normal >=59 [facility] Comment on above: Order Comment: Order added by Discern Expert. Result Comment: Fluid Pump Operator alen kidney disease could be indicated at eGFR's of less than 60 mL/min/1.73m2. Kidney failure is indicated at less than 15 mL/min/1.73m2. Performed By: #### 2 608824, 2855404, 5469877, 06165053, 86685207, 10648986, 6324437 ####[facility] [address] [place] [address] 36on 02-21-2023 36 Conformation on SS# what they have on file don't match what's on the order. Ask for Yeimi or adebayo [place] will be leaving soon. Normal [facility] Consent for PICC lineon 02-07 Consent for PICC line [id number]#1.00CD:127 Normal [facility] Consent for Treatmenton 02-07 Consent for Treatment [id number]#1.00CD:127 Normal [facility] Consent for Treatment [id number]#1.00CD:127 Normal [facility] Consent for Treatmenton 02-07 Consent for Treatment [id number]#1.00CD:127 Normal [facility] Heart and Vascular Office/Cl inic Noteon 02-17-2023 Heart and Vascular Office/Clinic Note Normal [facility] Comment on above: Result Comment: Elec tronically Signed By: Vickey WISE, Erwin FOtilia\.br\Date and Time Signed: 02/17/23 10:46 EDT Physician Orderon 02-17-2023 Physician Order [id number]#1.00CD:127 Normal [facility] Consent for PICC lineon 02-07 Consent for PICC line [id number]#1.00CD:127 Normal [facility] Auto Diffon 02-15-2023 Basophils/100 WBC (Bld) 0.0 % Normal 0.0-2.0 [facility] Comment on above: Order Comment: Order Added by Discern Expert. Performed By: #### 2 424257, 7400810, 21987372, 1550613, 81113413, 3508472 ####[facility] [address] [place] [address] Basophils/Leukocytes Auto (Bld) [Pure # fraction] 0.0 E9/L Normal 0.0-0.2 [facility] Comment on above: Order Comment: Order Added by Discern Expert. Performed By: #### 2 380337, 0861981, 02568218, 1785665, 24745646, 1953058 ####[address] [place] [address] Eosinophils/100 WBC (Bld) 0.0 % Normal 0.0-8.0 [facility] Comment on above: Order Comment: Order Added by Discern Expert. Performed By: #### 2 943625, 5356734, 65707477, 3909376, 78453568, 1001648 ####[address] [address] Eosinophils/Leukocytes Auto (Bld) [Pure # fraction] 0.0 E9/L Normal 0.0-0.5 [facility] Comment on above: Order Comment: Order Added by Discern Expert. Performed By: #### 2 880027, 6329873, 37238800, 6922659, 94831003, 4159944 ####[address] [address] Lymphocytes/100 WBC (Bld) 2.4 % Low 14.0-50.0 [facility] Comment on above: Order Comment: Order Added by Discern Expert. Performed By: #### 2 002800, 5317381, 45989298, 6475623, 55056484, 8875830 ####[address] [address] Lymphocytes/Leukocytes Auto (Bld) [Pure # fraction] 0.2 E9/L Low 1.0-4.0 [facility] Comment on above: Order Comment: Order Added by Discern Expert. Performed By: #### 2 003947, 3132804, 86409980, 6030988, 56721019, 1413131 ####[address] [address] Monocytes/100 WBC (Bld) 5.7 % Normal 4.0-14.0 [facility] Comment on above: Order Comment: Order Added by Discern Expert. Performed By: #### 2 326377, 6839889, 84403454, 5973006, 27131265, 4275170 ####[address] [address] Monocytes/Leukocytes Auto (Bld) [Pure # fraction] 0.6 E9/L Normal 0.2-1.0 [facility] Comment on above: Order Comment: Order Added by Discern Expert. Performed By: #### 2 736824, 8640857, 96889494, 4720101, 09282961, 4160652 ####[address] [address] Neutrophils/100 WBC (Bld) 91.9 % High 36.0-75.0 [facility] Comment on above: Order Comment: Order Added by Discern Expert. Performed By: #### 2 828341, 9508998, 47974604, 1694374, 37438856, 9474820 ####[address] [address] Neutrophils/Leukocytes Auto (Bld) [Pure # fraction] 9.3 E9/L High 2.0-7.5 [facility] Comment on above: Order Comment: Order Added by Discern Expert. Performed By: #### 2 266988, 0059908, 36230110, 1470395, 27888893, 7264271 ####[address] [address] CBC w/ Auto Diffon 3 Erythrocyte distribution width (RBC) [Ratio] 19.6 % High 10.9-14.2 [facility] Comment on above: Performed By: #### 2 923115, 2924042, 24526708, 7122791, 92897991, 8945380 ####[address] [place] [address] Hematocrit (Bld) [Volume fraction] 26.7 % Low 37.7-49.0 [facility] Comment on above: Performed By: #### 2 916214, 7754640, 76642712, 0903658, 95573790, 4749334 ####[address] [address] Hemoglobin (Bld) [Mass/Vol] 8.4 g/dL Low 13.5-17.5 [facility] Comment on above: Performed By: #### 2 239888, 8769321, 07449165, 2915314, 27736799, 4670163 ####[facility] [address] [place] [address] MCH (RBC) [Entitic mass] 27.8 pg Normal 27.0-34.0 [facility] Comment on above: Performed By: #### 2 321554, 7485846, 17283545, 1545169, 95059755, 1035698 ####[address] [address] MCHC (RBC) [Mass/Vol] 31.6 g/dL Normal 31.4-36.0 [facility] Comment on above: Performed By: #### 2 778922, 7775729, 64643751, 9744926, 76311669, 9223560 ####[address] [address] MCV (RBC) [Entitic vol] 87.8 fL Normal 80.0-100.0 [facility] Comment on above: Performed By: #### 2 987045, 1144479, 18080866, 5938251, 96722567, 7902727 ####[address] [address] Platelet mean volume (Bld) [Entitic vol] 8.3 fL Normal 6.4-10.8 [facility] Comment on above: Performed By: #### 2 288647, 1571149, 63845787, 9474270, 84096222, 7440672 ####[address] [place] [address] Platelets (Bld) [#/Vol] 203.0 E9/L Normal 150.0-500.0 [facility] Comment on above: Performed By: #### 2 274496, 7042813, 04404206, 6404506, 34808884, 5933645 ####[facility] [address] [place] [address] RBC (Bld) [#/Vol] 3.0 E12/L Low 4.3-5.9 [facility] Comment on above: Performed By: #### 2 329500, 4534572, 89200183, 6318340, 68161345, 3812405 ####[facility] [address] [place] [address] WBC corrected for nucl RBC Auto (Bld) [#/Vol] 10.1 E9/L Normal 4.0-11.0 [facility] Comment on above: Performed By: #### 2 760271, 6433141, 92039701, 0533113, 63387525, 8786055 ####[facility] [address] [place] [address] CHEMISTRYOrdered By: SYSTEM SYSTEM on 02-15-2023 Albumin [Mass/Vol] 2.3 g/dL Low 3.3 - 5.0 gm/dL [facility] Remisol Albumin/Globulin [Mass ratio] 0.5 {ratio} Low 1.1 - 2.2 [facility] Remisol ALP [Catalytic activity/Vol] 90 [iU]/d Normal 21 - 98 Int._Unit/L [facility] Remisol ALT No additional P-5'-P [Catalytic activity/Vol] 31 [iU]/d Normal 6 - 46 Int._Unit/L [facility] Remisol Anion gap [Moles/Vol] 12 mmol/L Normal 6 - 16 mEq/L [facility] Remisol AST [Catalytic activity/Vol] 35 [iU]/d Normal 5 - 43 Int._Unit/L [facility] Remisol Bilirubin [Mass/Vol] 0.6 mg/dL Normal 0.0 - 1 .1 mg/dL [facility] Remisol Calcium [Mass/Vol] 8.4 mg/dL Low 8.9 - 11. 1 mg/dL [facility] Remisol Chloride [Moles/Vol] 97 mmol/L Low 101 - 1 11 mmol/L [facility] Remisol CK [Catalytic activity/Vol] 71 [iU]/d Normal 14 - 261 Int._Unit/L [facility] Remisol CO2 [Moles/Vol] 23 mmol/L Normal 21 - 31 mmol/L [facility] Remisol Creatinine [Mass/Vol] 0.6 mg/dL Normal 0.5 - 1.3 mg/dL [facility] Remisol GFR/1.73 sq M.predicted among non-blacks MDRD (S/P/Bld) [Vol rate/Area] 100 mL/min/1.73 m2 Normal >=59mL/min/ 1.73 m2 FT Chem S Globulin (S) [Mass/Vol] 4.5 g/dL High 1.4 - 4.0 gm/dL [facility] Remisol Glucose [Mass/Vol] 166 mg/dL Normal 55 - 199 mg/dL [facility] Potassium [Moles/Vol] 3.9 mmol/L Normal 3.5 - 5.3 mmol/L [facility] Protein [Mass/Vol] 6.8 g/dL Normal 6.0 - 7.8 gm/dL [facility] Sodium [Moles/Vol] 128 mmol/L Low 135 - 145 mmol/L [facility] Urea nitrogen [Mass/Vol] 23 mg/dL High 5 - 21 mg/dL [facility] Urea nitrogen/Creatinine [Mass ratio] 38 mg/mg High 10 - 20 [facility] CKon 02-15-2023 CK [Catalytic activity/Vol] 71 Int._Unit/L Normal 14-261 [facility] Comment on above: Performed By: #### 2 507585, 2854494, 24490311, 5233056, 60702134, 8363661 ####[facility] [address] [place] [address] CMPon 02-15-2023 Albumin [Mass/Vol] 2.3 g/dL Low 3.3-5.0 [facility] Comment on above: Performed By: #### 2 085414, 0688407, 98476117, 2353417, 10182604, 9471445 ####[facility] [address] [place] [address] Albumin/Globulin (S) [Mass conc ratio] 0.5 Low 1.1-2.2 [facility] Comment on above: Performed By: #### 2 846315, 2882734, 37806180, 2354942, 07904204, 0217536 ####[facility] [address] [place] [address] ALP [Catalytic activity/Vol] 90 Int._Unit/L Normal 21-98 [facility] Comment on above: Performed By: #### 2 955034, 7914342, 77438083, 2364216, 66674775, 1756500 ####[address] [address] ALT No additional P-5'-P [Catalytic activity/Vol] 31 Int._Unit/L Normal 6-46 [facility] Comment on above: Performed By: #### 2 194865, 0821520, 29866236, 6795743, 76059178, 8440982 ####[address] [address] AST [Catalytic activity/Vol] 35 Int._Unit/L Normal 5-43 [facility] Comment on above: Performed By: #### 2 287252, 7907046, 43776556, 4191010, 09294790, 2293957 ####[facility] [address] [place] [address] Bilirubin [Mass/Vol] 0.6 mg/dL Normal 0.0-1.1 [place] Comment on above: Performed By: #### 2 642471, 6524299, 05962810, 0852735, 01881138, 4428142 ####[facility] [address] [place] [address] Creatinine [Mass/Vol] 0.6 mg/dL Normal 0.5-1.3 [facility] Comment on above: Performed By: #### 2 131730, 8054327, 36610142, 7781764, 47686578, 8771885 ####[facility] [address] [place] [address] Globulin (S) [Mass/Vol] 4.5 g/dL High 1.4-4.0 [facility] Comment on above: Performed By: #### 2 604242, 2423250, 55311250, 1801599, 62960238, 7089153 ####[facility] [address] [place] [address] Protein [Mass/Vol] 6.8 g/dL Normal 6.0-7.8 [facility] Comment on above: Performed By: #### 2 393749, 0361215, 80977226, 4394052, 97433377, 1262875 ####[facility] [address] [place] [address] Urea nitrogen [Mass/Vol] 23 mg/dL High 5-21 [facility] Comment on above: Performed By: #### 2 954432, 8042710, 27670725, 7454295, 56837574, 4448933 ####[facility] [address] [place] [address] Urea nitrogen/Creatinine [Mass ratio] 38 No Units High 10-20 [facility] Comment on above: Performed By: #### 2 601253, 1459469, 99707615, 4819900, 03778643, 5429835 ####[facility] [address] [place] [address] Anion gap [Moles/Vol] 12 mmol/L Normal 6-16 [facility] Comment on above: Performed By: #### 2 613772, 9412860, 23334929, 4710168, 66104835, 1026007 ####[facility] [address] [place] [address] Calcium [Mass/Vol] 8.4 mg/dL Low 8.9-11.1 [facility] Comment on above: Performed By: #### 2 136853, 5622461, 25076296, 2440376, 73689182, 3776097 ####[facility] [address] [place] [address] Chloride [Moles/Vol] 97 mmol/L Low 101-111 [place] Comment on above: Performed By: #### 2 712537, 0816858, 41509983, 1503607, 36299783, 9718050 ####[facility] [address] [place] [address] CO2 [Moles/Vol] 23 mmol/L Normal 21-31 [facility] Comment on above: Performed By: #### 2 048193, 8424034, 83444496, 1548224, 69246848, 9426342 ####[facility] [address] [place] [address] Glucose [Mass/Vol] 166 mg/dL Normal 55-199 [facility] Comment on above: Result Comment: If t his glucose result represents a fasting glucose, interpretation should refer to the following reference range: 55-99 mg/dL Performed By: #### 2 693071, 2685155, 00564018, 8500221, 26008859, 9557698 ####[facility] [address] [place] [address] Potassium [Moles/Vol] 3.9 mmol/L Normal 3.5-5.3 [facility] Comment on above: Performed By: #### 2 150127, 5270530, 46106386, 1920060, 92255674, 7345221 ####[facility] [address] [place] [address] Sodium [Moles/Vol] 128 mmol/L Low 135-145 [facility] Comment on above: Performed By: #### 2 056322, 1871080, 91981028, 6495684, 62694043, 9479642 ####[facility] [address] [place] [address] COAGULATIONOrdered By: Yang Ayala on 02-15-2023 aPTT Coag (PPP) [Time] 37.7 s High 25.1 - 36.5 second(s) [facility] Auto Coag INR Coag (PPP) [Relative time] 1.5 {INR} Invalid Interpretation Code [facility] Auto Coag PT Coag (PPP) [Time] 17.2 s High 9.4 - 1 2.5 second(s) [facility] Auto Coag CTA Abd Aorto-bilat/ iliofem oral runoffon 02-15-2023 CTA Abd Aorto-bilat/ iliofemoral runoff Normal [facility] Consent for Treatmenton Consent for Treatment [id number]#1.00CD:127 Normal [facility] Discharge Instructionson Discharge Instructions [id number]#1.00CD:127 Normal [facility] ED Clinical Summaryon 2022 ED Clinical Summary Normal [facility] ED Note-Physicianon 02-16-20 ED Note-Physician Normal [facility] Comment on above: Result Comment: Elec tronically Signed By: Brennon Cruz DO\.br\Date and Time Signed: 02/15/23 16:50 EDT ED Patient Education Noteon 02-15-2023 ED Patient Education Note Normal [facility] ED Patient Summaryon 023 ED Patient Summary Normal [facility] HEMATOLOGYOrdered By: SYSTEM SYSTEM on 02-15-2023 Basophils/100 WBC (Bld) 0.0 % Normal 0.0 - 2.0 % [facility] HemeAutoSS Basophils/Leukocytes Auto (Bld) [Pure # fraction] 0.0 E9/L Normal 0.0 - 0.2 E9/L [facility] HemeAutoSS Eosinophils/100 WBC (Bld) 0.0 % Normal 0.0 - 8.0 % [facility] HemeAutoSS Eosinophils/Leukocytes Auto (Bld) [Pure # fraction] 0.0 E9/L Normal 0.0 - 0.5 E9/L [facility] HemeAutoSS Lymphocytes/100 WBC (Bld) 2.4 % Low 14.0 - 50.0 % [facility] HemeAutoSS Lymphocytes/Leukocytes Auto (Bld) [Pure # fraction] 0.2 E9/L Low 1.0 - 4.0 E9/L [facility] HemeAutoSS Monocytes/100 WBC (Bld) 5.7 % Normal 4.0 - 14.0 % [facility] HemeAutoSS Monocytes/Leukocytes Auto (Bld) [Pure # fraction] 0.6 E9/L Normal 0.2 - 1.0 E9/L [facility] HemeAutoSS Neutrophils/100 WBC (Bld) 91.9 % High 36.0 - 75.0 % [facility] HemeAutoSS Neutrophils/Leukocytes Auto (Bld) [Pure # fraction] 9.3 E9/L High 2.0 - 7.5 E9/L [facility] HemeAutoSS HEMATOLOGYOrdered By: Abigail Foote on 02-15-2023 Erythrocyte distribution width (RBC) [Ratio] 19.6 % High 10.9 - 14.2 % [facility] HemeAutoSS Hematocrit (Bld) [Volume fraction] 26.7 % Low 37.7 - 49.0 % [facility] HemeAutoSS Hemoglobin (Bld) [Mass/Vol] 8.4 g/dL Low 13.5 - 17.5 gm/dL [facility] HemeAutoSS MCH (RBC) [Entitic mass] 27.8 pg Normal 27.0 - 34.0 pg [facility] HemeAutoSS MCHC (RBC) [Mass/Vol] 31.6 g/dL Normal 31.4 - 36.0 gm/dL [facility] HemeAutoSS MCV (RBC) [Entitic vol] 87.8 fL Normal 80.0 - 100.0 fL [facility] HemeAutoSS Platelet mean volume (Bld) [Entitic vol] 8.3 fL Normal 6.4 - 10.8 fL [facility] HemeAutoSS Platelets (Bld) [#/Vol] 203.0 E9/L Normal 150.0 - 500.0 E9/L [facility] HemeAutoSS RBC (Bld) [#/Vol] 3.0 E12/L Low 4.3 - 5.9 E12/L [facility] HemeAutoSS WBC corrected for nucl RBC Auto (Bld) [#/Vol] 10.1 E9/L Normal 4.0 - 11.0 E9/L [facility] HemeAutoSS Outside Labson 02-15-2023 Outside Labs [id number]#1.00CD:127 Normal [facility] Outside Radiologyon 02-16-20 Outside Radiology [id number]#1.00CD:127 Normal [facility] PT & PTTon 02-15-2023 aPTT Coag (PPP) [Time] 37.7 second(s) High 25.1-36.5 [facility] Comment on above: Result Comment: Para meter 15 days - 4 weeks 1 - 5 months 6 - 11 months 1 - 5 years 6 - 10 years 11 - 17 years PTT Mean: 35.4 (27.6-45.6) Mean: 33.5 (24.8-40.7) Mean: 32.4 (25.1-40.7) Mean: 31.6 (24.0-39.2) Mean: 31.6 (26.9-38.7) Mean: 31.0 (24.6-38.4) Pediatric Reference ranges were obtained from a study by Azeem Hernandez et al. prepared from 1437 samples obtained at 7 different centers using the same coagulation reagent and instrumentation as [facility]. Currently there are no coagulation studies available worldwide for children to 14 days, and no normal ranges. Heparin therapeutic range (represented by Anti-Factor Xa activity of 0.2 - 0.4 U/mL) corresponds to PTT of 56.6 - 109.0 sec. Performed By: #### 2 425414, 6253406, 48500808, 0823047, 72409728, 2611251 ####[facility] [address] [place] [address] INR Coag (PPP) [Relative time] 1.5 {INR} Invalid Interpretation Code [facility] Comment on above: Result Comment: INR results are specifically intended to assess patients stabilized on long-term Anticoagulation therapy suggested INR?s ?Less Intensive Anticoagulation? 2.0 ? 3.0Conventional Range 3.0 ? 4.5 Performed By: #### 2 [id number], [id number], [id number], [id number], [id number], [id number] ####[facility] [address] [place] [address] PT Coag (PPP) [Time] 17.2 second(s) High 9.4-12.5 [facility] Comment on above: Result Comment: 15 d ays - 4 weeks 1 - 5 months 6 -11 months 1 ? 5 years 6 ? 10 years 11 -17 years Mean: 11.2 (9.5 ? 12.6) Mean: 11.0 (9.7 ? 12.8) Mean: 11.0 (9.8 ? 13.0) Mean: 11.3 (9.9 ? 13.4) Mean: 11.7 (10.0 ? 14.6) Mean: 11.8 (10.0 - 14.1) Pediatric Reference ranges were obtained from a study by ru Livingston al. prepared from 1437 samples obtained at 7 different centers using the same coagulation reagent and instrumentation as [facility]. Currently there are no coagulation studies available worldwide for children to 14 days, and no normal ranges. Performed By: #### 2 [id number], [id number], [id number], [id number], [id number], [id number] ####[facility] [address] [place] [address] Physician Orderon 02-15-2023 Physician Order [id number]#1.00CD:127 Normal [facility] Physician Order [id number]#1.00CD:127 Normal [facility] eGFRon 02-15-2023 GFR/1.73 sq M.predicted among non-blacks MDRD (S/P/Bld) [Vol rate/Area] 100 mL/min/1.73 m2 Normal >=59 [facility] Comment on above: Order Comment: Order added by Discern Expert. Result Comment: Fluid Pump Operator alen kidney disease could be indicated at eGFR's of less than 60 mL/min/1.73m2. Kidney failure is indicated at less than 15 mL/min/1.73m2. Performed By: #### 2 [id number], [id number], [id number], [id number], [id number], [id number] ####[facility] [address] [place] [address] Outside Recordson 02-14-2023 Outside Records [id number]#1.00CD:127 Normal [facility] Outside Records [id number]#1.00CD:127 Normal [facility] Physician Orderon 02-14-2023 Physician Order [id number]#1.00CD:127 Normal [facility] Consent for Treatmenton Consent for Treatment [id number]#1.00CD:127 Normal [facility] Heart and Vascular Office/Cl inic Noteon 02-10-2023 Heart and Vascular Office/Clinic Note Normal [facility] Comment on above: Result Comment: Elec tronically Signed By: Vickey WISE, Erwin FOtilia\.br\Date and Time Signed: 02/10/23 12:32 EDT CBC W MANUAL DIFFon 02-10-20 ANISOCYTOSIS 1+ Normal [facility] Comment on above: Performed By: #### C ESTHELA #### [facility] [address] [place] [address] Dr. Joselyn Coffey ATYPICAL LYMPH # Normal [facility] Comment on above: Performed By: #### C BCMAN #### [facility] [address] [place] [address] Dr. Joselyn Coffey ATYPICAL LYMPH % Normal [facility] Comment on above: Performed By: #### C BCMAN #### [facility] [address] [place] [address] Dr. Joselyn Coffey BAND # Normal 0.0-0.3 [facility] Comment on above: Performed By: #### C BCMAN #### [facility] [address] [place] [address] Dr. Joselyn Coffey BAND % Normal 0-5 [facility] Comment on above: Performed By: #### C BCMAN #### [facility] [address] [place] [address] Dr. Joselyn Coffey BASOM # 0.00 103/ul Normal 0.00-0.10 [facility] Comment on above: Performed By: #### C DANNYMAN #### [facility] [address] [place] [address] Dr. Joselyn Coffey BASOM % 0.0 % Critically low 0.2-2.0 [facility] Comment on above: Performed By: #### C BCMAN #### [facility] [address] [place] [address] Dr. Joselyn Coffey BLAST # Normal [facility] Comment on above: Performed By: #### C BCMAN #### [facility] [address] [place] [address] Dr. Joselyn Coffey BLAST % Normal [facility] Comment on above: Performed By: #### C BCMAN #### [facility] [address] [place] [address] Dr. Joselyn Coffey CORRECTED WBC Normal 4.0-11.0 [facility] Comment on above: Performed By: #### C BCMAN #### [facility] [address] [place] [address] Dr. Joselyn Coffey EOS # 0.00 103/ul Normal 0.00-0.70 [facility] Comment on above: Performed By: #### C BCMAN #### [facility] [address] [place] [address] Dr. Joselyn Coffey EOS% 0.0 % Critically low 0.9-7.0 [facility] Comment on above: Performed By: #### C BCMAN #### [facility] [address] [place] [address] Dr. Joselyn Coffey HCT 26.7 % Critically low 42.0-54.0 [facility] Comment on above: Performed By: #### C BCMAN #### [facility] [address] [place] [address] Dr. Joselyn Coffey HGB 8.3 g/dl Critically low 14.0-18.0 [facility] Comment on above: Performed By: #### C BCMAN #### [facility] [address] [place] [address] Dr. Joselyn Coffey HYPOCHROMASIA 2+ Normal [facility] Comment on above: Performed By: #### C BCDEV #### [facility] [address] [place] [address] Dr. Joselyn Coffey LYMPHM # 0.17 103/ul Critically low 1.20-3.80 [facility] Comment on above: Performed By: #### C ESTHELA #### [facility] [address] [place] [address] Dr. Joselyn Coffey LYMPHM% 3.0 % Critically low 20.5-60.0 [facility] Comment on above: Performed By: #### C ESTHELA #### [facility] [address] [place] [address] Dr. Joselyn Coffey MCH 28.3 pg Normal 25.9-34.0 [facility] Comment on above: Performed By: #### C ESTHELA #### [facility] [address] [place] [address] Dr. Joselyn Coffey MCHC 31.1 g/dl Normal 29.9-35.2 [facility] Comment on above: Performed By: #### C ESTHELA #### [facility] [address] [place] [address] Dr. Joselyn Coffey MCV 91.1 fL Normal 80.0-94.0 [facility] Comment on above: Performed By: #### C ESTHELA #### [facility] [address] [place] [address] Dr. Joselyn Coffey METAMYELOCYTE # Normal [facility] Comment on above: Performed By: #### C ESTHELA #### [facility] [address] [place] [address] Dr. Joselyn Coffey METAMYELOCYTE % Normal [facility] Comment on above: Performed By: #### C ESTHELA #### [facility] [address] [place] [address] Dr. Joselyn Coffey MONOM# 0.46 103/ul Normal 0.30-0.80 [facility] Comment on above: Performed By: #### C ESTHELA #### [facility] [address] [place] [address] Dr. Joselyn Coffey MONOM% 8.0 % Normal 1.7-12.0 [facility] Comment on above: Performed By: #### C ESTHELA #### [facility] [address] [address] [address] Joselyn Coffey MPV 11.6 fL Normal 9.5-13.5 [facility] Comment on above: Performed By: #### C ESTHELA #### [facility] [address] [place] [address] Dr. Joselyn Coffey MYELOCYTE # Normal [facility] Comment on above: Performed By: #### C ESTHELA #### [facility] [address] [place] [address] Dr. Joselyn Coffey MYELOCYTE % Normal [facility] Comment on above: Performed By: #### C ESTHELA #### [facility] [address] [place] [address] Dr. Joselyn Coffey NRBC Normal [facility] Comment on above: Performed By: #### C ESTHELA #### [facility] [address] [place] [address] Dr. Joselyn Coffey PLT 161 103/ul Normal 150-450 [facility] Comment on above: Performed By: #### C ESTHELA #### [facility] [address] [place] [address] Dr. Joselyn Coffey RBC 2.93 106/ul Critically low 4.70-6.10 [facility] Comment on above: Performed By: #### C ESTHELA #### [facility] [address] [place] [address] Dr. Joselyn Coffey RDW 18.8 % Critically high 11.0-15.0 [facility] Comment on above: Performed By: #### C ESTHELA #### [facility] [address] [place] [address] Dr. Joselyn Coffey SEG # 5.16 103/ul Normal 1.40-6.50 [facility] Comment on above: Performed By: #### C ESTHELA #### [facility] [address] [place] [address] Dr. Joselyn Coffey SEG % 89.0 % Critically high 43.0-75.0 [facility] Comment on above: Performed By: #### C ESTHELA #### [facility] [address] [place] [address] Dr. Joselyn Coffey WBC 5.8 103/ul Normal 4.0-11.0 [facility] Comment on above: Performed By: #### C BCMAN #### [facility] [address] [place] [address] Dr. Joselyn Coffey PROF CHEM 8 (BAS METB)on Anion gap [Moles/Vol] 8.3 mmol/L Normal [facility] Comment on above: Performed By: #### B MP #### [facility] [address] [place] [address] Dr. Joselyn Coffey Calcium [Mass/Vol] 8.3 mg/dL Critically low 8.5-10.1 [facility] Comment on above: Performed By: #### B MP #### [facility] [address] [place] [address] Dr. Joselyn Coffey Chloride [Moles/Vol] 101 mmol/L Normal 98-107 [facility] Comment on above: Performed By: #### B MP #### [facility] [address] [place] [address] Dr. Joselyn Coffey CO2 [Moles/Vol] 27.7 mmol/L Normal 21.0-32.0 [facility] Comment on above: Performed By: #### B MP #### [facility] [address] [place] [address] Dr. Joselyn Coffey Creatinine [Mass/Vol] 0.60 mg/dL Critically low 0.70-1.30 [facility] Comment on above: Performed By: #### B MP #### [facility] [address] [place] [address] Dr. Joselyn Coffey EGFR-AF UGANDAN >60 Normal >=60 [facility] Comment on above: Performed By: #### B MP #### [facility] [address] [place] [address] Dr. Joselyn Coffey EGFR-NON AF UGANDAN >60 Normal >=60 [facility] Comment on above: Performed By: #### B MP #### [facility] [address] [place] [address] Dr. Joselyn Coffey Glucose [Mass/Vol] 188 mg/dL Critically high 74-106 [facility] Comment on above: Performed By: #### B MP #### [facility] [address] [place] [address] Dr. Joselyn Coffey Potassium [Moles/Vol] 4.0 mmol/L Normal 3.5-5.1 [facility] Comment on above: Performed By: #### B MP #### [facility] [address] [place] [address] Dr. Joselyn Coffey Sodium [Moles/Vol] 133 mmol/L Critically low 136-145 [facility] Comment on above: Performed By: #### B MP #### [facility] [address] [place] [address] Dr. Joselyn Coffey Urea nitrogen [Mass/Vol] 13.0 mg/dL Normal 7.0-18.0 [facility] Comment on above: Performed By: #### B MP #### [facility] [address] [place] [address] Dr. Joselyn Coffey Urea nitrogen/Creatinine [Mass ratio] 21.7 mg/mg Normal [facility] Comment on above: Performed By: #### B MP #### [facility] [address] [place] [address] Dr. Joselyn Coffey PROTIMEon 02-09-2023 INR Coag (PPP) [Relative time] 1.12 {INR} Normal [facility] Comment on above: Performed By: #### C ESTHELA #### [facility] [address] [place] [address] Dr. Joselyn Coffey INR GUIDELINES SEE BELOW Normal [facility] Comment on above: Result Comment: SNOW RED INR: 2.0 - 3.0 CONDITIONS NOT LISTED BELOW 2.5 - 3.5 FOR PROSTHETIC HEART VALVE REPLACEMENT 2.5 - 3.5 RECURRENT THROMBOSIS Performed By: #### C BCMAN #### [facility] [address] [place] [address] Dr. Joselyn Coffey PT Coag (PPP) [Time] 11.8 s Critically high 9.0-11.6 [facility] Comment on above: Performed By: #### C ESTHELA #### [facility] [address] [address] [address] Joselyn Coffey PTTon 02-09-2023 aPTT Coag (Bld) [Time] 37.3 s Critically high 22.3-36. 2 [facility] Comment on above: Performed By: #### C BCMAN #### [facility] [address] [address] [address] Joselyn Coffey US ARTERY LEG RTon 3 US ARTERY LEG RT EXAMINATION: US TUNG RY LEG RT HISTORY: Asthenia COMPARISON: No relevant comparison available. TECHNIQUE: Color duplex Doppler ultrasound evaluation analysis was performed in the usual manner. FINDINGS: Minimal color and Doppler flow is identified in the right iliac, deep femoral, popliteal and posterior tibial arteries. The arteries which demonstrate flow significant delay and systolic upstroke, spectral broadening and monophasic waveform. No flow is definitively seen within the femoral artery or anterior tibial artery IMPRESSION: Biphasic waveforms and decreased flow consistent with marked stenosis proximal to the visualized right leg arterial tree Absent flow in the femoral and anterior tibial arteries Electronically authenticated by: MARIO CULLEN Date: 2023-02-09 14:17 Normal [facility] XR CHEST 1 Von 02-09-2023 XR CHEST 1 V EXAM: XR CHEST 1 V HISTORY: Asthenia COMPARISON: 04/04/2021 TECHNIQUE: Single view of the chest FINDINGS: Heart size normal. No focal consolidation, pleural effusion, pulmonary congestion or pneumothorax. Sternotomy wires. Right-sided central line terminating in the lower SVC region. IMPRESSION: No acute findings. Electronically authenticated by: DONALD LIMA Date: 2023-02-09 14:18 Normal [facility] 30on 02-03-2023 30 Normal [facility] 30 The patient is Moder ately Stable - Low risk of patient condition declining or worsening The patient's goals for the shift include comfort The clinical goals for the shift include sleep Normal [facility] BASIC METABOLIC PANELon 01-09 Anion gap [Moles/Vol] 8 mmol/L Normal 7-20 [facility] Comment on above: Performed By: #### L [id number] ####[facility] ([facility])[address] [place] [address] Calcium [Mass/Vol] 7.3 mg/dL Low 8.6-10.3 [facility] Comment on above: Performed By: #### L [id number] ####[facility] ([facility])[address] [place] [address] Chloride [Moles/Vol] 104 mmol/L Normal 98-107 [facility] Comment on above: Performed By: #### L [id number] ####[facility] ([facility])[address] [place] [address] CO2 [Moles/Vol] 25 mmol/L Normal 21-31 [facility] Comment on above: Performed By: #### L [id number] ####[facility] ([facility])[address] [place] [address] Creatinine [Mass/Vol] 0.48 mg/dL Low 0.70-1.30 [facility] Comment on above: Performed By: #### L [id number] ####[facility] ([facility])[address] [place] [address] GLOMERULAR FILTRATION RATE ML/MIN/1.73 SQ M.PREDICTED 107.0 mL/min/1.73m*2 Normal >60.0 [facility] Comment on above: Result Comment: The [facility]???s estimated glomerular filtration rate (eGFR) will no longer include consideration of race in its calculation. The National Kidney Foundation???s eGFR Task Force developed new recommendations for the estimation of the glomerular filtration rate in the [place] They recommend immediate implementation of the new equation refit without the race variable in all laboratories because the calculation does not include race. In addition to not including race in the calculation and reporting, it included diversity in its development, and has acceptable performance characteristics and potential consequences that do not disproportionately affect any one group of individuals. Performed By: #### L [id number] ####[facility] ([facility])[address] [place] [address] Glucose [Mass/Vol] 103 mg/dL High 70-100 [facility] Comment on above: Performed By: #### L [id number] ####[facility] ([facility])[address] [place] [address] Potassium [Moles/Vol] 3.3 mmol/L Low 3.5-5.[address] [facility] Comment on above: Performed By: #### L [id number] ####[facility] ([facility])[address] [place] [address] Sodium [Moles/Vol] 134 mmol/L Low 136-145 [facility] Comment on above: Performed By: #### L [id number] ####[facility] ([facility])[address] [place] [address] Urea nitrogen [Mass/Vol] 8 mg/dL Normal 7-25 [facility] Comment on above: Performed By: #### L [id number] ####[facility] ([facility])[address] [place] [address] UREA NITROGEN/CREATININE (MASS RATIO) IN SER/PLAS 16.7 Normal [facility] Comment on above: Performed By: #### L [id number] ####[facility] ([facility])[address] [place] [address] CBCon 02-03-2023 Erythrocyte distribution width (RBC) [Ratio] 17.3 % High 11.5-15.0 [facility] Comment on above: Performed By: #### L [id number] ####[facility] ([facility])[address] [place] [address] ERYTHROCYTE MEAN CORPUSCULAR HEMOGLOBIN CONCENTRATION (G/DL) BY AUTOMATED 32.4 g/dL Normal 32.0-35.0 [facility] Comment on above: Performed By: #### L [id number] ####[facility] ([facility])[address] [place] [address] Hematocrit (Bld) [Volume fraction] 25.0 % Low 39.0-55.0 [facility] Comment on above: Performed By: #### L [id number] ####[facility] ([facility])[address] [place] [address] Hemoglobin (Bld) [Mass/Vol] 8.1 g/dL Low 13.0-17.0 [facility] Comment on above: Performed By: #### L [id number] ####[facility] ([facility])[address] [address] IMMATURE PLATELET FRACTION % 9.6 % High 0.8-6.3 [facility] Comment on above: Performed By: #### L [id number] ####[facility] ([facility])[address] [place] [address] MCH (RBC) [Entitic mass] 28.9 pg Normal 27.0-33.0 [facility] Comment on above: Performed By: #### L [id number] ####[facility] ([facility])[address], [place] [address] MCV (RBC) [Entitic vol] 89.3 fL Normal 82.0-98.0 [facility] Comment on above: Performed By: #### L [id number] ####[facility] ([facility])[address] [place] [address] PLATELETS (10*3/UL) IN BLOOD AUTOMATED COUNT 91 10*3/uL Low 150-400 [facility] Comment on above: Performed By: #### L [id number] ####[facility] ([facility])[address] [place] [address] RBC (Bld) [#/Vol] 2.80 10*6/uL Low 4.20-5.70 [facility] Comment on above: Performed By: #### L [id number] ####[facility] ([facility])[address] [place] [address] WBC (Bld) [#/Vol] 4.44 10*3/uL Normal 4.00-10.60 [facility] Comment on above: Performed By: #### L [id number] ####[facility] ([facility])[address] [place] [address] DSon 02-03-2023 DS Normal [facility] PHOSPHORUSon 02-03-2023 Magnesium [Mass/Vol] 2.3 mg/dL Low 2.5-5.0 [facility] Comment on above: Performed By: #### L [id number] ####[facility] ([facility])[address] [place] [address] 30on 02-02-2023 30 Normal [facility] BASIC METABOLIC PANELon 01-09 Anion gap [Moles/Vol] 10 mmol/L Normal 7-20 [facility] Comment on above: Performed By: #### L [id number] ####[facility] ([facility])[address] [place] [address] Calcium [Mass/Vol] 7.4 mg/dL Low 8.6-10.3 [facility] Comment on above: Performed By: #### L [id number] ####[facility] ([facility])[address] [place] [address] Chloride [Moles/Vol] 106 mmol/L Normal 98-107 [facility] Comment on above: Performed By: #### L [id number] ####[facility] ([facility])[address] [place] [address] CO2 [Moles/Vol] 22 mmol/L Normal 21-31 [facility] Comment on above: Performed By: #### L [id number] ####[facility] ([facility])[address] [place] [address] Creatinine [Mass/Vol] 0.60 mg/dL Low 0.70-1.30 [facility] Comment on above: Performed By: #### L [id number] ####[facility] ([facility])[address] [place] [address] GLOMERULAR FILTRATION RATE ML/MIN/1.73 SQ M.PREDICTED 100.0 mL/min/1.73m*2 Normal >60.0 [facility] Comment on above: Result Comment: The [facility]???s estimated glomerular filtration rate (eGFR) will no longer include consideration of race in its calculation. The National Kidney Foundation???s eGFR Task Force developed new recommendations for the estimation of the glomerular filtration rate in the [place] They recommend immediate implementation of the new equation refit without the race variable in all laboratories because the calculation does not include race. In addition to not including race in the calculation and reporting, it included diversity in its development, and has acceptable performance characteristics and potential consequences that do not disproportionately affect any one group of individuals. Performed By: #### L [id number] ####[facility] ([facility])[address] [place] [address] Glucose [Mass/Vol] 105 mg/dL High 70-100 [facility] Comment on above: Performed By: #### L [id number] ####[facility] ([facility])[address] [place] [place] [address] Potassium [Moles/Vol] 3.9 mmol/L Normal 3.5-5.1 [facility] Comment on above: Performed By: #### L [id number] ####[facility] ([facility])[address] [place] [address] Sodium [Moles/Vol] 134 mmol/L Low 136-145 [facility] Comment on above: Performed By: #### L [id number] ####[facility] ([facility])[address] [place] [address] Urea nitrogen [Mass/Vol] 9 mg/dL Normal 7-25 [facility] Comment on above: Performed By: #### L [id number] ####[facility] ([facility])[address] [place] [address] UREA NITROGEN/CREATININE (MASS RATIO) IN SER/PLAS 15.0 Normal [facility] Comment on above: Performed By: #### L [id number] ####[facility] ([facility])[address] [place] [address] CBCon 02-02-2023 Erythrocyte distribution width (RBC) [Ratio] 16.9 % High 11.5-15.0 [facility] Comment on above: Performed By: #### L [id number] ####[facility] ([facility])[address] [place] [address] ERYTHROCYTE MEAN CORPUSCULAR HEMOGLOBIN CONCENTRATION (G/DL) BY AUTOMATED 31.5 g/dL Low 32.0-35.0 [facility] Comment on above: Performed By: #### L [id number] ####[facility] ([facility])[address] [place] [address] Hematocrit (Bld) [Volume fraction] 31.7 % Low 39.0-55.0 [facility] Comment on above: Performed By: #### L [id number] ####[facility] (BEAKER)[address], [place] [address] Hemoglobin (Bld) [Mass/Vol] 10.0 g/dL Low 13.0-17.0 [facility] Comment on above: Performed By: #### L [id number] ####[facility] (BEAKER)[address] [place] [address] MCH (RBC) [Entitic mass] 27.9 pg Normal 27.0-33.0 [facility] Comment on above: Performed By: #### L [id number] ####[facility] ([facility]ER)[address], [place] [address] MCV (RBC) [Entitic vol] 88.3 fL Normal 82.0-98.0 [facility] Comment on above: Performed By: #### L [id number] ####[facility] (BEAKER)[address] [place] [address] PLATELETS (10*3/UL) IN BLOOD AUTOMATED COUNT 124 10*3/uL Low 150-400 [facility] Comment on above: Performed By: #### L [id number] ####[facility] ([facility]AKER)[address], [place] [address] RBC (Bld) [#/Vol] 3.59 10*6/uL Low 4.20-5.70 [facility] Comment on above: Performed By: #### L [id number] ####[facility] (BEAKER)[address] [place] [address] WBC (Bld) [#/Vol] 8.67 10*3/uL Normal 4.00-10.60 [facility] Comment on above: Performed By: #### L [id number] ####[facility] ([facility])[address] [place] [address] HEPARIN LEVELon 02-02-2023 HEPARIN UNFRACTIONATED (U/ML) IN PPP BY CHROMOGENIC METHOD 0.48 IU/mL Normal 0.3-0.7 [facility] Comment on above: Result Comment: Wells roxaban and Apixaban will interfere with the anti Xa assay used to monitor UFH and LMWH. Performed By: #### L [id number] ####[facility] ([facility])[address] [address] HEPARIN UNFRACTIONATED (U/ML) IN PPP BY CHROMOGENIC METHOD 0.38 IU/mL Normal 0.3-0.7 [facility] Comment on above: Result Comment: Wells roxaban and Apixaban will interfere with the anti Xa assay used to monitor UFH and LMWH. Performed By: #### L [id number] ####[facility] ([facility])[address] [place] [address] HEPARIN UNFRACTIONATED (U/ML) IN PPP BY CHROMOGENIC METHOD 0.28 IU/mL Low 0.3-0.7 [facility] Comment on above: Order Comment: Check anti-Xa level every 6 hours while on heparin infusion, or per protocol. Result Comment: Wells roxaban and Apixaban will interfere with the anti Xa assay used to monitor UFH and LMWH. Performed By: #### L [id number] ####[facility] ([facility] [place] [address] MAGNESIUMon 02-02-2023 Magnesium [Mass/Vol] 1.9 mg/dL Normal 1.9-2.7 [facility] Comment on above: Performed By: #### L [id number] ####[facility] ([facility])[address] [place] [address] PHOSPHORUSon 02-02-2023 Magnesium [Mass/Vol] 3.2 mg/dL Normal 2.5-5.0 [facility] Comment on above: Performed By: #### L [id number] ####[facility] ([facility])[address] [place] [address] APTTon 02-01-2023 ACTIVATED PARTIAL THROMBOPLASTIN TIME IN PPP BY COAGULATION ASSAY 57.8 Seconds High 25.0-35.0 [facility] Comment on above: Order Comment: Basel ine aPTT before initiating heparin infusion. Result Comment: Clin ical significance of the APTT is questionable in the presence of heparin. Performed By: #### L [id number] ####[facility] ([facility] [place] [address] BASIC METABOLIC PANELon 01-09 Anion gap [Moles/Vol] 9 mmol/L Normal 7-20 [facility] Comment on above: Performed By: #### L [id number] ####[facility] ([facility])[address] [place] [address] Calcium [Mass/Vol] 7.5 mg/dL Low 8.6-10.3 [facility] Comment on above: Performed By: #### L [id number] ####[facility] ([facility] [place] [address] Chloride [Moles/Vol] 107 mmol/L Normal 98-107 [facility] Comment on above: Performed By: #### L [id number] ####[facility] ([facility] [place] [address] CO2 [Moles/Vol] 20 mmol/L Low 21-31 [facility] Comment on above: Performed By: #### L [id number] ####[facility] (BEAKER)[address] [place] [address] Creatinine [Mass/Vol] 0.56 mg/dL Low 0.70-1.30 [facility] Comment on above: Performed By: #### L [id number] ####[facility] (BEAKER)[address] [place] [address] GLOMERULAR FILTRATION RATE ML/MIN/1.73 SQ M.PREDICTED 102.2 mL/min/1.73m*2 Normal >60.0 [facility] Comment on above: Result Comment: The [facility]???s estimated glomerular filtration rate (eGFR) will no longer include consideration of race in its calculation. The National Kidney Foundation???s eGFR Task Force developed new recommendations for the estimation of the glomerular filtration rate in the [place] They recommend immediate implementation of the new equation refit without the race variable in all laboratories because the calculation does not include race. In addition to not including race in the calculation and reporting, it included diversity in its development, and has acceptable performance characteristics and potential consequences that do not disproportionately affect any one group of individuals. Performed By: #### L [id number] ####[facility] ([facility])[address] [place] [address] Glucose [Mass/Vol] 84 mg/dL Normal 70-100 [facility] Comment on above: Performed By: #### L [id number] ####[facility] ([facility])[address] [place] [address] Potassium [Moles/Vol] 3.4 mmol/L Low 3.5-5.[address] [facility] Comment on above: Performed By: #### L [id number] ####[facility] ([facility])[address] [place] [address] Sodium [Moles/Vol] 133 mmol/L Low 136-145 [facility] Comment on above: Performed By: #### L [id number] ####[facility] ([facility] [place] [address] Urea nitrogen [Mass/Vol] 9 mg/dL Normal 7-25 [facility] Comment on above: Performed By: #### L [id number] ####[facility] ([facility])[address] [place] [address] UREA NITROGEN/CREATININE (MASS RATIO) IN SER/PLAS 16.1 Normal [facility] Comment on above: Performed By: #### L [id number] ####[facility] ([facility]AKER)[address] [place] [address] BLOOD CULTUREon 02-01-2023 Bacteria identified Cx Nom (Bld) No growth at 5 days Normal [facility] Comment on above: Order Comment: From a different site than #1. Performed By: #### L [id number] ####[facility] ([facility])[address] [address] CBCon 02-01-2023 Erythrocyte distribution width (RBC) [Ratio] 16.3 % High 11.5-15.0 [facility] Comment on above: Performed By: #### L [id number] ####[facility] ([facility])[address] [place] [address] ERYTHROCYTE MEAN CORPUSCULAR HEMOGLOBIN CONCENTRATION (G/DL) BY AUTOMATED 32.6 g/dL Normal 32.0-35.0 [facility] Comment on above: Performed By: #### L [id number] ####[facility] ([facility])[address] [place] [address] Hematocrit (Bld) [Volume fraction] 25.8 % Low 39.0-55.0 [facility] Comment on above: Performed By: #### L [id number] ####[facility] ([facility])[address] [place] [address] Hemoglobin (Bld) [Mass/Vol] 8.4 g/dL Low 13.0-17.0 [facility] Comment on above: Performed By: #### L [id number] ####[facility] ([facility])[address] [place] [address] IMMATURE PLATELET FRACTION % 10.2 % High 0.8-6.3 [facility] Comment on above: Performed By: #### L [id number] ####[facility] ([facility])[address] [place] [address] MCH (RBC) [Entitic mass] 28.3 pg Normal 27.0-33.0 [facility] Comment on above: Performed By: #### L [id number] ####[facility] ([facility])[address] [place] [address] MCV (RBC) [Entitic vol] 86.9 fL Normal 82.0-98.0 [facility] Comment on above: Performed By: #### L [id number] ####[facility] ([facility])[address] [place] [address] PLATELETS (10*3/UL) IN BLOOD AUTOMATED COUNT 89 10*3/uL Low 150-400 [facility] Comment on above: Result Comment: P=85 , 1D Performed By: #### L [id number] ####[facility] ([facility])[address] [place] [address] RBC (Bld) [#/Vol] 2.97 10*6/uL Low 4.20-5.70 [facility] Comment on above: Performed By: #### L [id number] ####[facility] ([facility])[address] [place] [address] WBC (Bld) [#/Vol] 5.04 10*3/uL Normal 4.00-10.60 [facility] Comment on above: Performed By: #### L [id number] ####[facility] ([facility])[address] [place] [address] CKon 02-01-2023 CREATINE KINASE (U/L) IN SER/PLAS 36.0 U/L Normal 30.0-223.0 [facility] Comment on above: Performed By: #### L [id number] ####[facility] ([facility])[address] [place] [address] HEPARIN LEVELon 02-01-2023 HEPARIN UNFRACTIONATED (U/ML) IN PPP BY CHROMOGENIC METHOD 0.16 IU/mL Invalid Interpretation Code 0.3-0.7 [facility] Comment on above: Result Comment: Masha roxaban and Apixaban will interfere with the anti Xa assay used to monitor UFH and LMWH. Performed By: #### L [id number] ####[facility] ([facility])[address] [place] [address] MAGNESIUMon 04-25-2023 Magnesium [Mass/Vol] 1.7 mg/dL Low 1.9-2.7 [facility] Comment on above: Performed By: #### L [id number] ####[facility] ([facility])[address] [place] [address] PHOSPHORUSon 02-01-2023 Magnesium [Mass/Vol] 2.2 mg/dL Low 2.5-5.0 [facility] Comment on above: Performed By: #### L [id number] ####[facility] ([facility])[address] [place] [address] POCT GLUCOSE METER UNSOLICIT ED RESULTSon 02-01-2023 Glucose [Mass/Vol] 119 mg/dL High 70-105 [facility] Comment on above: Result Comment: william tad Performed By: #### L [id number] ####[facility] ([facility])[address] [place] [place] [address] Glucose [Mass/Vol] 125 mg/dL High 70-105 [facility] Comment on above: Result Comment: rbar ero Performed By: #### L [id number] ####[facility] ([facility])[address] [place] [place] [address] Glucose [Mass/Vol] 102 mg/dL Normal 70-105 [facility] Comment on above: Result Comment: [email or web address] [id number] Performed By: #### L [id number] ####[facility] ([facility])[address] [place] [place] [address] 30on 01-31-2023 30 24- POD2 groin wou nd exploration, electrolyte replacement today, had small drop in hgb to 7.2, 1 U of PRBC to be transfused, WV in place on groin. has ptot orders, awaiting their recs, vanc and zosyn for infx coverage, possible tx out of icu today. CB Normal [facility] BASIC METABOLIC PANELon 01-09 Anion gap [Moles/Vol] 7 mmol/L Normal 7-[address] [facility] Comment on above: Performed By: #### L [id number] ####[facility] ([facility]AKER)[address] [place] [address] Calcium [Mass/Vol] 7.1 mg/dL Low 8.6-10.3 [facility] Comment on above: Performed By: #### L [id number] ####[facility] ([facility]ER)[address] [place] [address] Chloride [Moles/Vol] 109 mmol/L High 98-107 [facility] Comment on above: Performed By: #### L [id number] ####[facility] ([facility]ER)[address] [place] [address] CO2 [Moles/Vol] 22 mmol/L Normal 21-31 [facility] Comment on above: Performed By: #### L [id number] ####[facility] ([facility]ER)[address] [place] [address] Creatinine [Mass/Vol] 0.56 mg/dL Low 0.70-1.30 [facility] Comment on above: Performed By: #### L [id number] ####[facility] ([facility]AKER)[address] [place] [address] GLOMERULAR FILTRATION RATE ML/MIN/1.73 SQ M.PREDICTED 102.2 mL/min/1.73m*2 Normal >60.0 [facility] Comment on above: Result Comment: The [facility]???s estimated glomerular filtration rate (eGFR) will no longer include consideration of race in its calculation. The National Kidney Foundation???s eGFR Task Force developed new recommendations for the estimation of the glomerular filtration rate in the [place] They recommend immediate implementation of the new equation refit without the race variable in all laboratories because the calculation does not include race. In addition to not including race in the calculation and reporting, it included diversity in its development, and has acceptable performance characteristics and potential consequences that do not disproportionately affect any one group of individuals. Performed By: #### L [id number] ####[facility] ([facility]ER)[address] [place] [address] Glucose [Mass/Vol] 100 mg/dL Normal 70-100 [facility] Comment on above: Performed By: #### L [id number] ####[facility] ([facility] [place] [address] Potassium [Moles/Vol] 3.3 mmol/L Low 3.5-5.[address] [facility] Comment on above: Performed By: #### L [id number] ####[facility] ([facility] [place] [address] Sodium [Moles/Vol] 135 mmol/L Low 136-145 [facility] Comment on above: Performed By: #### L [id number] ####[facility] ([facility])[address] [place] [address] Urea nitrogen [Mass/Vol] 8 mg/dL Normal 7-25 [facility] Comment on above: Performed By: #### L [id number] ####[facility] ([facility])[address] [place] [address] UREA NITROGEN/CREATININE (MASS RATIO) IN SER/PLAS 14.3 Normal [facility] Comment on above: Performed By: #### L [id number] ####[facility] ([facility])[address] [place] [address] CBCon 01-31-2023 Erythrocyte distribution width (RBC) [Ratio] 16.4 % High 11.5-15.0 [facility] Comment on above: Performed By: #### L [id number] ####[facility] ([facility])[address] [place] [address] ERYTHROCYTE MEAN CORPUSCULAR HEMOGLOBIN CONCENTRATION (G/DL) BY AUTOMATED 32.4 g/dL Normal 32.0-35.0 [facility] Comment on above: Performed By: #### L [id number] ####[facility] ([facility] [place] [address] Hematocrit (Bld) [Volume fraction] 22.2 % Low 39.0-55.0 [facility] Comment on above: Performed By: #### L [id number] ####[facility] ([facility]ER)[address] [place] [address] Hemoglobin (Bld) [Mass/Vol] 7.2 g/dL Low 13.0-17.0 [facility] Comment on above: Performed By: #### L [id number] ####[facility] ([facility] [place] [address] IMMATURE PLATELET FRACTION % 11.0 % High 0.8-6.3 [facility] Comment on above: Performed By: #### L [id number] ####[facility] ([facility])[address] [place] [address] MCH (RBC) [Entitic mass] 27.6 pg Normal 27.0-33.0 [facility] Comment on above: Performed By: #### L [id number] ####[facility] ([facility])[address] [place] [address] MCV (RBC) [Entitic vol] 85.1 fL Normal 82.0-98.0 [facility] Comment on above: Performed By: #### L [id number] ####[facility] ([facility])[address] [place] [address] PLATELETS (10*3/UL) IN BLOOD AUTOMATED COUNT 85 10*3/uL Low 150-400 [facility] Comment on above: Result Comment: Last plt 79 1d Performed By: #### L [id number] ####[facility] ([facility])[address] [place] [address] RBC (Bld) [#/Vol] 2.61 10*6/uL Low 4.20-5.70 [facility] Comment on above: Performed By: #### L [id number] ####[facility] ([facility])[address] [place] [address] WBC (Bld) [#/Vol] 5.70 10*3/uL Normal 4.00-10.60 [facility] Comment on above: Performed By: #### L [id number] ####[facility] ([facility])[address] [place] [address] HEMOGLOBIN AND HEMATOCRIT, B LOODon 01-31-2023 Hematocrit (Bld) [Volume fraction] 29.9 % Low 39.0-55.0 [facility] Comment on above: Performed By: #### L [id number] ####[facility] ([facility])[address] [place] [address] Hemoglobin (Bld) [Mass/Vol] 9.3 g/dL Low 13.0-17.0 [facility] Comment on above: Performed By: #### L [id number] ####[facility] ([facility])[address] [place] [address] HEPARIN LEVELon 01-31-2023 HEPARIN UNFRACTIONATED (U/ML) IN PPP BY CHROMOGENIC METHOD 0.21 IU/mL Low 0.3-0.7 [facility] Comment on above: Result Comment: Masha roxaban and Apixaban will interfere with the anti Xa assay used to monitor UFH and LMWH. Performed By: #### L [id number] ####[facility] ([facility])[address] [place] [address] POCT GLUCOSE METER UNSOLICIT ED RESULTSon 01-31-2023 Glucose [Mass/Vol] 138 mg/dL High 70-105 [facility] Comment on above: Result Comment: jead es Performed By: #### L [id number] ####[facility] ([facility])[address] [place] [address] Glucose [Mass/Vol] 110 mg/dL High 70-105 [facility] Comment on above: Result Comment: jead es Performed By: #### L [id number] ####[facility] ([facility])[address] [place] [address] Glucose [Mass/Vol] 133 mg/dL High 70-105 [facility] Comment on above: Result Comment: ljon es Performed By: #### L [id number] ####[facility] ([facility])[address] [place] [address] VANCOMYCIN, PEAKon VANCOMYCIN (UG/ML) IN SER/PLAS - PEAK 16.4 ug/mL Low 20.0-50.0 [facility] Comment on above: Order Comment: DO NO T DRAW WITH MORNING LABSVancomycin peak to be drawn at 0830 Performed By: #### L [id number] ####[facility] ([facility])[address] [place] [address] VANCOMYCIN, TROUGHon 023 VANCOMYCIN (UG/ML) IN SER/PLAS - TROUGH 10.6 ug/mL Normal 5.0-20.0 [facility] Comment on above: Performed By: #### L [id number] ####[facility] ([facility])[address] [place] [address] 30on 01-30-2023 30 Normal [facility] 30 Normal [facility] ANESon 01-30-2023 ANES Normal [facility] APTTon 01-30-2023 ACTIVATED PARTIAL THROMBOPLASTIN TIME IN PPP BY COAGULATION ASSAY 41.6 Seconds High 25.0-35.0 [facility] Comment on above: Result Comment: Clin ical significance of the APTT is questionable in the presence of heparin. Performed By: #### L [id number] ####[facility] ([facility])[address] [place] [address] BASIC METABOLIC PANELon 01-09 Anion gap [Moles/Vol] 7 mmol/L Normal 7-20 [facility] Comment on above: Performed By: #### L [id number] ####[facility] ([facility])[address] [place] [address] Calcium [Mass/Vol] 8.2 mg/dL Low 8.6-10.3 [facility] Comment on above: Performed By: #### L [id number] ####[facility] ([facility])[address] [place] [address] Chloride [Moles/Vol] 105 mmol/L Normal 98-107 [facility] Comment on above: Performed By: #### L [id number] ####[facility] ([facility] [place] [address] CO2 [Moles/Vol] 23 mmol/L Normal 21-31 [facility] Comment on above: Performed By: #### L [id number] ####[facility] ([facility])[address] [place] [address] Creatinine [Mass/Vol] 0.43 mg/dL Low 0.70-1.30 [facility] Comment on above: Performed By: #### L [id number] ####[facility] ([facility])[address] [place] [address] GLOMERULAR FILTRATION RATE ML/MIN/1.73 SQ M.PREDICTED 110.6 mL/min/1.73m*2 Normal >60.0 [facility] Comment on above: Result Comment: The [facility]???s estimated glomerular filtration rate (eGFR) will no longer include consideration of race in its calculation. The National Kidney Foundation???s eGFR Task Force developed new recommendations for the estimation of the glomerular filtration rate in the [place] They recommend immediate implementation of the new equation refit without the race variable in all laboratories because the calculation does not include race. In addition to not including race in the calculation and reporting, it included diversity in its development, and has acceptable performance characteristics and potential consequences that do not disproportionately affect any one group of individuals. Performed By: #### L [id number] ####[facility] ([facility])[address] [place] [address] Glucose [Mass/Vol] 175 mg/dL High 70-100 [facility] Comment on above: Performed By: #### L [id number] ####[facility] ([facility] [place] [address] Potassium [Moles/Vol] 3.7 mmol/L Normal 3.5-5.1 [facility] Comment on above: Performed By: #### L [id number] ####[facility] ([facility] [place] [address] Sodium [Moles/Vol] 131 mmol/L Low 136-145 [facility] Comment on above: Performed By: #### L [id number] ####[facility] ([facility])[address] [place] [address] Urea nitrogen [Mass/Vol] 11 mg/dL Normal 7-25 [facility] Comment on above: Performed By: #### L [id number] ####[facility] ([facility])[address] [place] [address] UREA NITROGEN/CREATININE (MASS RATIO) IN SER/PLAS 25.6 Normal [facility] Comment on above: Performed By: #### L [id number] ####[facility] ([facility])[address] [place] [address] Anion gap [Moles/Vol] 9 mmol/L Normal 7-20 [facility] Comment on above: Performed By: #### L [id number] ####[facility] ([facility])[address] [place] [address] Calcium [Mass/Vol] 7.6 mg/dL Low 8.6-10.3 [facility] Comment on above: Performed By: #### L [id number] ####[facility] ([facility])[address] [place] [address] Chloride [Moles/Vol] 104 mmol/L Normal 98-107 [facility] Comment on above: Performed By: #### L [id number] ####[facility] [facility] [place] [address] CO2 [Moles/Vol] 22 mmol/L Normal 21-31 [facility] Comment on above: Performed By: #### L [id number] ####[facility] ([facility])[address] [place] [address] Creatinine [Mass/Vol] 0.47 mg/dL Low 0.70-1.30 [facility] Comment on above: Performed By: #### L [id number] ####[facility] ([facility])[address] [place] [address] GLOMERULAR FILTRATION RATE ML/MIN/1.73 SQ M.PREDICTED 107.7 mL/min/1.73m*2 Normal >60.0 [facility] Comment on above: Result Comment: The [facility]???s estimated glomerular filtration rate (eGFR) will no longer include consideration of race in its calculation. The National Kidney Foundation???s eGFR Task Force developed new recommendations for the estimation of the glomerular filtration rate in the [place] They recommend immediate implementation of the new equation refit without the race variable in all laboratories because the calculation does not include race. In addition to not including race in the calculation and reporting, it included diversity in its development, and has acceptable performance characteristics and potential consequences that do not disproportionately affect any one group of individuals. Performed By: #### L [id number] ####[facility] ([facility])[address] [place] [address] Glucose [Mass/Vol] 191 mg/dL High 70-100 [facility] Comment on above: Performed By: #### L [id number] ####[facility] ([facility])[address] [place] [address] Potassium [Moles/Vol] 4.1 mmol/L Normal 3.5-5.[address] [facility] Comment on above: Performed By: #### L [id number] ####[facility] ([facility])[address] [place] [address] Sodium [Moles/Vol] 131 mmol/L Low 136-145 [facility] Comment on above: Performed By: #### L [id number] ####[facility] ([facility])[address] [place] [address] Urea nitrogen [Mass/Vol] 12 mg/dL Normal 7-25 [facility] Comment on above: Performed By: #### L [id number] ####[facility] ([facility])[address] [place] [address] UREA NITROGEN/CREATININE (MASS RATIO) IN SER/PLAS 25.5 Normal [facility] Comment on above: Performed By: #### L [id number] ####[facility] ([facility])[address] [place] [address] BLOOD CULTUREon 04-23-2023 Bacteria identified Cx Nom (Bld) No growth at 5 days Normal [facility] Comment on above: Performed By: #### L [id number] ####[facility] ([facility])[address] [place] [address] Order Comment: From a different site than #1. CBCon 01-30-2023 Erythrocyte distribution width (RBC) [Ratio] 15.8 % High 11.5-15.0 [facility] Comment on above: Performed By: #### L [id number] ####[facility] ([facility])[address] [place] [address] ERYTHROCYTE MEAN CORPUSCULAR HEMOGLOBIN CONCENTRATION (G/DL) BY AUTOMATED 32.3 g/dL Normal 32.0-35.0 [facility] Comment on above: Performed By: #### L [id number] ####[facility] ([facility])[address] [place] [address] Hematocrit (Bld) [Volume fraction] 24.8 % Low 39.0-55.0 [facility] Comment on above: Performed By: #### L [id number] ####[facility] ([facility])[address] [place] [address] Hemoglobin (Bld) [Mass/Vol] 8.0 g/dL Low 13.0-17.0 [facility] Comment on above: Performed By: #### L [id number] ####[facility] ([facility] [place] [address] IMMATURE PLATELET FRACTION % 10.3 % High 0.8-6.3 [facility] Comment on above: Performed By: #### L [id number] ####[facility] ([facility] [place] [address] MCH (RBC) [Entitic mass] 27.2 pg Normal 27.0-33.0 [facility] Comment on above: Performed By: #### L [id number] ####[facility] ([facility] [place] [address] MCV (RBC) [Entitic vol] 84.4 fL Normal 82.0-98.0 [facility] Comment on above: Performed By: #### L [id number] ####[facility] ([facility])[address] [place] [address] PLATELETS (10*3/UL) IN BLOOD AUTOMATED COUNT 79 10*3/uL Low 150-400 [facility] Comment on above: Performed By: #### L [id number] ####[facility] ([facility])[address] [place] [address] RBC (Bld) [#/Vol] 2.94 10*6/uL Low 4.20-5.70 [facility] Comment on above: Performed By: #### L [id number] ####[facility] ([facility])[address] [place] [address] WBC (Bld) [#/Vol] 5.09 10*3/uL Normal 4.00-10.60 [facility] Comment on above: Performed By: #### L [id number] ####[facility] ([facility])[address] [place] [address] CBC WITH AUTO DIFFERENTIALon 01-30-2023 Erythrocyte distribution width (RBC) [Ratio] 15.6 % High 11.5-15.0 [facility] Comment on above: Performed By: #### L [id number] ####[facility] ([facility])[address] [place] [address] ERYTHROCYTE MEAN CORPUSCULAR HEMOGLOBIN CONCENTRATION (G/DL) BY AUTOMATED 33.5 g/dL Normal 32.0-35.0 [facility] Comment on above: Performed By: #### L [id number] ####[facility] ([facility])[address] [place] [address] Hematocrit (Bld) [Volume fraction] 24.2 % Low 39.0-55.0 [facility] Comment on above: Performed By: #### L [id number] ####[facility] ([facility] [place] [address] Hemoglobin (Bld) [Mass/Vol] 8.1 g/dL Low 13.0-17.0 [facility] Comment on above: Performed By: #### L [id number] ####[facility] ([facility] [place] [address] IMMATURE PLATELET FRACTION % 10.2 % High 0.8-6.3 [facility] Comment on above: Performed By: #### L [id number] ####[facility] ([facility])[address] [place] [address] MCH (RBC) [Entitic mass] 28.1 pg Normal 27.0-33.0 [facility] Comment on above: Performed By: #### L [id number] ####[facility] ([facility])[address] [place] [address] MCV (RBC) [Entitic vol] 84.0 fL Normal 82.0-98.0 [facility] Comment on above: Performed By: #### L [id number] ####[facility] ([facility])[address] [place] [address] NRBC (PER 100 WBCS) BY AUTOMATED COUNT 0.0 % Normal 0.0-0.0 [facility] Comment on above: Performed By: #### L [id number] ####[facility] ([facility])[address] [place] [address] PLATELETS (10*3/UL) IN BLOOD AUTOMATED COUNT 80 10*3/uL Low 150-400 [facility] Comment on above: Performed By: #### L [id number] ####[facility] ([facility])[address] [place] [address] RBC (Bld) [#/Vol] 2.88 10*6/uL Low 4.20-5.70 [facility] Comment on above: Performed By: #### L [id number] ####[facility] ([facility] [place] [address] WBC (Bld) [#/Vol] 4.26 10*3/uL Normal 4.00-10.60 [facility] Comment on above: Performed By: #### L [id number] ####[facility] ([facility])[address] [place] [address] CONSULTon 01-30-2023 CONSULT Normal [facility] CONSULT Normal [facility] FIBRINOGENon 01-30-2023 Magnesium [Mass/Vol] 219 mg/dL Normal 150-425 [facility] Comment on above: Performed By: #### L [id number] ####[facility] ([facility])[address] [place] [address] HEPARIN LEVELon 01-30-2023 HEPARIN UNFRACTIONATED (U/ML) IN PPP BY CHROMOGENIC METHOD >1.00 Critically high 0.3-0.7 [facility] Comment on above: Result Comment: Wells roxaban and Apixaban will interfere with the anti Xa assay used to monitor UFH and LMWH. Performed By: #### L [id number] ####[facility] ([facility])[address] [place] [address] HEPARIN UNFRACTIONATED (U/ML) IN PPP BY CHROMOGENIC METHOD >1.00 Critically high 0.3-0.7 [facility] Comment on above: Result Comment: Wells roxaban and Apixaban will interfere with the anti Xa assay used to monitor UFH and LMWH. Performed By: #### L [id number] ####[facility] ([facility])[address] [place] [address] HEPATIC FUNCTION PANELon Albumin [Mass/Vol] 2.8 g/dL Low 3.5-5.7 [facility] Comment on above: Performed By: #### L [id number] ####[facility] ([facility])[address] [place] [address] ALP [Catalytic activity/Vol] 42 U/L Normal 34-104 [facility] Comment on above: Performed By: #### L [id number] ####[facility] ([facility])[address] [place] [address] ALT [Catalytic activity/Vol] 13 U/L Normal 7-52 [facility] Comment on above: Performed By: #### L [id number] ####[facility] ([facility])[address] [place] [address] AST [Catalytic activity/Vol] 17 U/L Normal 13-39 [facility] Comment on above: Performed By: #### L [id number] ####[facility] ([facility])[address] [place] [address] Bilirubin [Mass/Vol] 2.6 mg/dL High 0.3-1.0 [facility] Comment on above: Performed By: #### L [id number] ####[facility] ([facility])[address] [place] [address] Magnesium [Mass/Vol] 1.1 mg/dL High 0-0.2 [facility] Comment on above: Performed By: #### L [id number] ####[facility] ([facility])[address] [place] [address] Protein [Mass/Vol] 5.4 g/dL Low 6.0-8.3 [facility] Comment on above: Performed By: #### L [id number] ####[facility] ([facility])[address] [place] [address] LACTIC ACID WITH 4 HOUR REFL EXon 01-30-2023 LACTATE (MMOL/L) IN SER/PLAS 0.8 mmol/L Normal 0.5-2.2 [facility] Comment on above: Performed By: #### L [id number] ####[facility] ([facility])[address] [place] [address] MAGNESIUMon 01-30-2023 Magnesium [Mass/Vol] 2.2 mg/dL Normal 1.9-2.7 [facility] Comment on above: Performed By: #### L [id number] ####[facility] ([facility])[address] [place] [address] Magnesium [Mass/Vol] 1.7 mg/dL Low 1.9-2.7 [facility] Comment on above: Performed By: #### L [id number] ####[facility] ([facility] [place] [address] MANUAL DIFFERENTIALon 2022 BASOPHILS (10*3/UL) IN BLOOD BY CALCULATION 0.01 10*3/uL Normal 0.00-0.20 [facility] Comment on above: Performed By: #### L [id number] ####[facility] ([facility])[address] [place] [address] BASOPHILS/100 LEUKOCYTES IN BLOOD BY AUTOMATED COUNT 0.2 % Normal 0.0-1.0 [facility] Comment on above: Performed By: #### L [id number] ####[facility] ([facility])[address] [place] [address] EOSINOPHILS (10*3/UL) IN BLOOD BY CALCULATION 0.00 10*3/uL Normal 0.00-0.50 [facility] Comment on above: Performed By: #### L [id number] ####[facility] ([facility])[address] [place] [address] EOSINOPHILS/100 LEUKOCYTES IN BLOOD BY AUTOMATED COUNT 0.0 % Normal 0.0-6.0 [facility] Comment on above: Performed By: #### L [id number] ####[facility] ([facility])[address] [place] [address] IMMATURE GRANULOCYTES (10*3/UL) IN BLOOD BY CALCULATION 0.10 10*3/uL Normal 0.00-0.20 [facility] Comment on above: Performed By: #### L [id number] ####[facility] ([facility])[address] [place] [address] IMMATURE GRANULOCYTES/100 LEUKOCYTES IN BLOOD BY AUTOMATED COUNT 2.3 % High 0.0-1.0 [facility] Comment on above: Performed By: #### L [id number] ####[facility] ([facility])[address] [place] [address] LYMPHOCYTES (10*3/UL) IN BLOOD BY CALCULATION 0.23 10*3/uL Low 1.20-4.00 [facility] Comment on above: Performed By: #### L [id number] ####[facility] ([facility])[address] [address] LYMPHOCYTES/100 LEUKOCYTES IN BLOOD BY AUTOMATED COUNT 5.4 % Low 20.0-45.0 [facility] Comment on above: Performed By: #### L [id number] ####[facility] ([facility])[address] [address] MONOCYTES (10*3/UL) IN BLOOD BY CALCUATION 0.18 10*3/uL Normal 0.10-1.00 [facility] Comment on above: Performed By: #### L [id number] ####[facility] ([facility])[address] [address] MONOCYTES/100 LEUKOCYTES IN BLOOD BY AUTOMATED COUNT 4.2 % Low 5.0-12.0 [facility] Comment on above: Performed By: #### L [id number] ####[facility] ([facility])[address] [address] NEUTROPHILS (10*3/UL) IN BLOOD BY CALCULATION 3.7 10*3/uL Normal 1.6-7.6 [facility] Comment on above: Performed By: #### L [id number] ####[facility] ([facility])[address] [address] NEUTROPHILS/100 LEUKOCYTES IN BLOOD BY AUTOMATED COUNT 87.9 % High 40.0-72.0 [facility] Comment on above: Performed By: #### L [id number] ####[facility] ([facility])[address] [place] [address] PHOSPHORUSon 01-30-2023 Magnesium [Mass/Vol] 2.8 mg/dL Normal 2.5-5.0 [facility] Comment on above: Performed By: #### L [id number] ####[facility] ([facility])[address] [address] POCT GLUCOSE METER UNSOLICIT ED RESULTSon 01-30-2023 Glucose [Mass/Vol] 128 mg/dL High 70-105 [facility] Comment on above: Result Comment: snow anuja Performed By: #### L [id number] ####[facility] ([facility])[address] [place] [address] Glucose [Mass/Vol] 118 mg/dL High 70-105 [facility] Comment on above: Result Comment: rsuz [email or web address] Performed By: #### L [id number] ####[facility] ([facility])[address] [place] [address] Glucose [Mass/Vol] 157 mg/dL High 70-105 [facility] Comment on above: Result Comment: ebol tz Performed By: #### L [id number] ####[facility] ([facility])[address] [place] [address] Glucose [Mass/Vol] 192 mg/dL High 70-105 [facility] Comment on above: Result Comment: [email or web address] Performed By: #### L [id number] ####[facility] ([facility])[address] [place] [address] PROTIME-INRon 01-30-2023 INR IN PPP BY COAGULATION ASSAY 1.68 High 0.90-1.10 [facility] Comment on above: Result Comment: ACCC P RECOMMENDED INR FOR WARFARIN THERAPY CONDITION INRPROPHYLAXIS OF VENOUS THROMBOSIS 2-3(HIGH-RISK SURGERY)TREATMENT OF VENOUS THROMBOSIS 2-3TREATMENT OF PULMONARY EMBOLISM 2-3PREVENTION OF SYSTEMIC EMBOLISM: 2-3 ACUTE MYOCARDIAL INFARCTION TISSUE HEART VALVES VALVULAR HEART DISEASE ATRIAL FIBRILLATION RECURRENT SYSTEMIC EMBOLISMMECHANICAL HEART VALVE 2.5-3.5 FROM: ORAL ANTICOAGULANTS. MECHANISM OF ACTION, CLINICAL EFFECTIVENESS, AND OPTIMAL THERAPEUTIC RANGE. CHEST 1995;108:231S-246S. Performed By: #### L [id number] ####[facility] ([facility])[address] [place] [address] PROTHROMBIN TIME (PT) IN PPP BY COAGULATION ASSAY 19.6 Seconds High 12.3-14.8 [facility] Comment on above: Performed By: #### L [id number] ####[facility] ([facility])[address] [place] [address] ANESon 01-29-2023 ANES Normal [facility] APTTon 01-29-2023 ACTIVATED PARTIAL THROMBOPLASTIN TIME IN PPP BY COAGULATION ASSAY 33.0 Seconds Normal 25.0-35.0 [facility] Comment on above: Result Comment: Clin ical significance of the APTT is questionable in the presence of heparin. Performed By: #### L [id number] ####[facility] ([facility])[address] [place] [address] BASIC METABOLIC PANELon - Anion gap [Moles/Vol] 10 mmol/L Normal 7-20 [facility] Comment on above: Performed By: #### L [id number] ####[facility] ([facility])[address] [place] [address] Calcium [Mass/Vol] 7.6 mg/dL Low 8.6-10.3 [facility] Comment on above: Performed By: #### L [id number] ####[facility] ([facility])[address] [place] [address] Chloride [Moles/Vol] 101 mmol/L Normal 98-107 [facility] Comment on above: Performed By: #### L [id number] ####[facility] ([facility])[address] [place] [address] CO2 [Moles/Vol] 22 mmol/L Normal 21-31 [facility] Comment on above: Performed By: #### L [id number] ####[facility] ([facility])[address] [place] [address] Creatinine [Mass/Vol] 0.54 mg/dL Low 0.70-1.30 [facility] Comment on above: Performed By: #### L [id number] ####[facility] ([facility])[address] [place] [address] GLOMERULAR FILTRATION RATE ML/MIN/1.73 SQ M.PREDICTED 103.3 mL/min/1.73m*2 Normal >60.0 [facility] Comment on above: Result Comment: [facility]???s estimated glomerular filtration rate (eGFR) will no longer include consideration of race in its calculation. The National Kidney Foundation???s eGFR Task Force developed new recommendations for the estimation of the glomerular filtration rate in the [place] They recommend immediate implementation of the new equation refit without the race variable in all laboratories because the calculation does not include race. In addition to not including race in the calculation and reporting, it included diversity in its development, and has acceptable performance characteristics and potential consequences that do not disproportionately affect any one group of individuals. Performed By: #### L [id number] ####[facility] ([facility])[address] [place] [address] Glucose [Mass/Vol] 139 mg/dL High 70-100 [facility] Comment on above: Performed By: #### L [id number] ####[facility] ([facility])[address] [place] [address] Potassium [Moles/Vol] 4.1 mmol/L Normal 3.5-5.1 [facility] Comment on above: Performed By: #### L [id number] ####[facility] ([facility])[address] [place] [address] Sodium [Moles/Vol] 129 mmol/L Low 136-145 [facility] Comment on above: Performed By: #### L [id number] ####[facility] ([facility])[address] [place] [address] Urea nitrogen [Mass/Vol] 13 mg/dL Normal 7-25 [facility] Comment on above: Performed By: #### L [id number] ####[facility] ([facility])[address] [place] [address] UREA NITROGEN/CREATININE (MASS RATIO) IN SER/PLAS 24.1 Normal [facility] Comment on above: Performed By: #### L [id number] ####[facility] ([facility])[address] [place] [address] CBCon 01-29-2023 Erythrocyte distribution width (RBC) [Ratio] 16.4 % High 11.5-15.0 [facility] Comment on above: Performed By: #### L [id number] ####[facility] ([facility])[address] [place] [address] ERYTHROCYTE MEAN CORPUSCULAR HEMOGLOBIN CONCENTRATION (G/DL) BY AUTOMATED 30.8 g/dL Low 32.0-35.0 [facility] Comment on above: Performed By: #### L [id number] ####[facility] ([facility])[address] [place] [address] Hematocrit (Bld) [Volume fraction] 22.1 % Low 39.0-55.0 [facility] Comment on above: Performed By: #### L [id number] ####[facility] ([facility])[address] [place] [address] Hemoglobin (Bld) [Mass/Vol] 6.8 g/dL Low 13.0-17.0 [facility] Comment on above: Performed By: #### L [id number] ####[facility] ([facility])[address] [place] [address] IMMATURE PLATELET FRACTION % 11.1 % High 0.8-6.3 [facility] Comment on above: Performed By: #### L [id number] ####[facility] ([facility])[address] [place] [address] MCH (RBC) [Entitic mass] 26.5 pg Low 27.0-33.0 [facility] Comment on above: Performed By: #### L [id number] ####[facility] [place] [address] MCV (RBC) [Entitic vol] 86.0 fL Normal 82.0-98.0 [facility] Comment on above: Performed By: #### L [id number] ####[facility] ([facility])[address] [place] [address] PLATELETS (10*3/UL) IN BLOOD AUTOMATED COUNT 96 10*3/uL Low 150-400 [facility] Comment on above: Performed By: #### L [id number] ####[facility] ([facility])[address] [place] [address] RBC (Bld) [#/Vol] 2.57 10*6/uL Low 4.20-5.70 [facility] Comment on above: Performed By: #### L [id number] ####[facility] ([facility])[address] [place] [address] WBC (Bld) [#/Vol] 4.09 10*3/uL Normal 4.00-10.60 [facility] Comment on above: Performed By: #### L [id number] ####[facility] ([facility])[address] [place] [address] CBC AUTO DIFFon 01-29-2023 BASO # 0.0 103/ul Normal 0.0-0.1 [facility] Comment on above: Performed By: #### P TT, PT #### [facility] [address] [place] [address] Dr. Joselyn Coffey Basophils/100 WBC (Bld) 0.2 % Normal 0.2-2.0 [facility] Comment on above: Performed By: #### P TT, PT #### [facility] [address] [place] [address] Dr. Joselyn Coffey EO # 0.0 103/ul Normal 0.0-0.7 [facility] Comment on above: Performed By: #### P TT, PT #### [facility] [address] [place] [address] Dr. Joselyn Coffey Eosinophils/100 WBC (Bld) 0.0 % Critically low 0.9-7.0 [facility] Comment on above: Performed By: #### P TT, PT #### [facility] [address] [place] [address] Dr. Joselyn Coffey Erythrocyte distribution width (RBC) [Ratio] 17.7 % Critically high 11.0-15.0 [facility] Comment on above: Performed By: #### P TT, PT #### [facility] [address] [place] [address] Dr. Joselyn Coffey Hematocrit (Bld) [Volume fraction] 17.5 % Critically low 42.0-54.0 [facility] Comment on above: Performed By: #### P TT, PT #### [facility] [address] [place] [address] Dr. Joselyn Coffey Hemoglobin (Bld) [Mass/Vol] 5.1 g/dL Critically low 14.0-18.0 [facility] Comment on above: Performed By: #### P TT, PT #### [facility] [address] [place] [address] Dr. Joselyn Coffey IG # 0.02 10e3/ul Normal 0.00-0.03 [facility] Comment on above: Performed By: #### P TT, PT #### [facility] [address] [place] [address] Dr. Joselyn Coffey IG % 0.4 % Normal 0.0-0.5 [facility] Comment on above: Performed By: #### P TT, PT #### [facility] [address] [place] [address] Dr. Joselyn Coffey LYMPH # 0.3 103/ul Critically low 1.2-3.8 [facility] Comment on above: Performed By: #### P TT, PT #### [facility] [address] [place] [address] Dr. Joselyn Coffey Lymphocytes/100 WBC (Bld) 5.8 % Critically low 20.5-60.0 [facility] Comment on above: Performed By: #### P TT, PT #### [facility] [address] [place] [address] Dr. Joselyn Coffey MANUAL DIFF REQ NO Normal [facility] Comment on above: Performed By: #### P TT, PT #### [facility] [address] [place] [address] Dr. Joselyn Coffey MCH (RBC) [Entitic mass] 25.5 pg Critically low 25.9-34.0 [facility] Comment on above: Performed By: #### P TT, PT #### [facility] [address] [place] [address] Dr. Joselyn Coffey MCHC (RBC) [Mass/Vol] 29.1 g/dL Critically low 29.9-35.2 [facility] Comment on above: Performed By: #### P TT, PT #### [facility] [address] [place] [address] Dr. Joselyn Coffey MCV (RBC) [Entitic vol] 87.5 fL Normal 80.0-94.0 [facility] Comment on above: Performed By: #### P TT, PT #### [facility] [address] [place] [address] Dr. Joselyn Coffey MONO # 0.5 103/ul Normal 0.3-0.8 [facility] Comment on above: Performed By: #### P TT, PT #### [facility] [address] [place] [address] Dr. Joselyn Coffey Monocytes/100 WBC (Bld) 10.4 % Normal 1.7-12.0 [facility] Comment on above: Performed By: #### P TT, PT #### [facility] [address] [place] [address] Dr. Joselyn Coffey NEUT # 4.3 103/ul Normal 1.4-6.5 [facility] Comment on above: Performed By: #### P TT, PT #### [facility] [address] [place] [address] Dr. Joselyn Coffey Neutrophils/100 WBC (Bld) 83.2 % Critically high 43.0-75.0 [facility] Comment on above: Performed By: #### P TT, PT #### [facility] [address] [place], [place] [address] Dr. Joselyn Coffey Platelet mean volume (Bld) [Entitic vol] 12.4 fL Normal 9.5-13.5 [facility] Comment on above: Performed By: #### P TT, PT #### [facility] [address] [place], [place] [address] Dr. Joselyn Coffey PLT 113 103/ul Critically low 150-450 [facility] Comment on above: Performed By: #### P TT, PT #### [facility] [address] [place], [place] [address] Dr. Joselyn Coffey RBC 2.00 106/ul Critically low 4.70-6.10 [facility] Comment on above: Performed By: #### P TT, PT #### [facility] [address] [place] [address] [address] Joselyn Coffey WBC 5.2 103/ul Normal 4.0-11.0 [facility] Comment on above: Performed By: #### P TT, PT #### [facility] [address] [place] [address] [address] Joselyn Coffey CTA ABD MARY JANE WWO CON LE RUNO FFon 01-29-2023 CTA ABD MARY JANE WWO CON LE RUNOFF EXAMINATION: CTA ABD MARY JANE WWO CON LE RUNOFF HISTORY: Arterial hemorrhage. COMPARISON: 10/20/2022. Prior CTA abdomen and pelvis 06/17/2021. TECHNIQUE: Enhanced helical acquisition during arterial phase from the descending thoracic aorta through the bilateral lower extremities with MIP and MPR reconstructions. MIP (maximum intensity projection) images were performed. Dose reduction techniques were achieved by using automated exposure control and/or adjustment of mA and/or kV according to patient size and/or use of iterative reconstruction technique. FINDINGS: CTA AORTA WITH BILATERAL LOWER EXTREMITY RUNOFF: Moderate diffuse atherosclerotic disease of the distal descending thoracic aorta. Severe diffuse atherosclerotic disease throughout the abdominal aorta. Celiac axis and SMA stents are patent. The RENETTA and bilateral renal arteries are patent without evidence of significant stenosis. Moderate luminal narrowing of the distal abdominal aorta. Bilateral common and external iliac endovascular stents, occluded on the right and patent on the left. Femorofemoral bypass graft is patent. 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 There is a smaller pseudoaneurysm arising from the right common femoral artery measuring 0.8 cm. Occlusion of the bilateral superficial femoral arteries including left SFA endovascular stent. Distal reconstitution via profunda femoris artery of the bilateral trifurcations. Three-vessel runoff identified to the bilateral feet. CT ABDOMEN: Pulmonary bleb noted within the right lower lobe. The pleural spaces are clear. Prior cholecystectomy. Allowing for the early arterial phase of imaging, the liver, spleen, pancreas, adrenal glands and the kidneys are unremarkable. No enlarged lymph nodes within the abdomen. CT PELVIS: Although the colon is partially decompressed there appears to be mild diffuse colonic wall thickening. Diverticulosis without radiographic evidence of diverticulitis. No ascites or focal intraperitoneal fluid collections. Mild prostatic enlargement. No enlarged lymph nodes within the pelvis. IMPRESSION: 1. 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 A 0.8 cm right common femoral artery pseudoaneurysm. 2. Occluded right iliac endovascular stent. Patent left iliac endovascular stent and patent femoral-femoral bypass graft. 3. Occlusion of the bilateral superficial femoral arteries including a left SFA endovascular stent. 4. There is distal reconstitution at the level of the bilateral trifurcations via bilateral profunda femoris branches. Three-vessel runoff identified to the bilateral feet. 5. Moderate-severe diffuse atherosclerotic disease throughout the abdominal aorta with luminal narrowing of the distal abdominal aorta. Patent celiac axis and SMA endovascular stents. 6. Prior cholecystectomy. 7. Mild prostatic enlargement. 8. Although the colon is partially decompressed there appears to be mild diffuse colonic wall thickening. Recommend correlation for possible underlying colitis. 9. Diverticulosis without radiographic evidence of diverticulitis. Electronically authenticated by: LUZ NIETO Date: 2023-01-29 17:48 Normal [facility] EDPROVon 01-29-2023 EDPROV Normal [facility] FIBRINOGENon 01-29-2023 Magnesium [Mass/Vol] 275 mg/dL Normal 150-425 [facility] Comment on above: Performed By: #### L [id number] ####[facility] ([facility])[address] [place] [address] HPon 01-29-2023 HP Normal [facility] OPNOTEon 01-29-2023 OPNOTE Normal [facility] POCT ACTIVATED CLOTTING TIME UNSOLICITED RESULTSon 01-29-2023 POC ACTIVATED CLOTTING TIME 144 sec Normal 82-152 [facility] Comment on above: Performed By: #### L [id number] ####[facility] ([facility] [place] [address] POC ACTIVATED CLOTTING TIME 169 sec High 82-152 [facility] Comment on above: Performed By: #### L [id number] ####[facility] [place] [address] POC ACTIVATED CLOTTING TIME 151 sec Normal 82-152 [facility] Comment on above: Performed By: #### L [id number] ####[facility] ([facility])[address] [place] [address] POCT GLUCOSE METER UNSOLICIT ED RESULTSon 01-29-2023 Glucose [Mass/Vol] 154 mg/dL High 70-105 [facility] Comment on above: Result Comment: ekir [email or web address] Performed By: #### L [id number] ####[facility] ([facility])[address] [place] [address] POCT PERFUSION PANEL UNSOLIC ITED RESULTSon 01-29-2023 CO2 [Moles/Vol] 24.0 mmol/L Normal 21.0-29.0 [facility] Comment on above: Performed By: #### L [id number] ####[facility] ([facility] [place] [address] Glucose [Mass/Vol] 181 mg/dL High 70-105 [facility] Comment on above: Performed By: #### L [id number] ####[facility] ([facility] [place] [address] HCO3 (Bld) [Moles/Vol] 22.8 mmol/L Low 23.0-28.0 [facility] Comment on above: Performed By: #### L [id number] ####[facility] ([facility])[address] [place] [address] Hematocrit (Bld) [Volume fraction] 23 % Low 38-51 [facility] Comment on above: Performed By: #### L [id number] ####[facility] ([facility])[address] [place] [address] Hemoglobin (Bld) [Mass/Vol] 7.8 g/dL Low 12.0-17.0 [facility] Comment on above: Performed By: #### L [id number] ####[facility] ([facility])[address] [place] [address] POCT BASE EXCESS -2.0 mmol/L Normal -2.0-3.0 [facility] Comment on above: Performed By: #### L [id number] ####[facility] ([facility])[address] [place] [address] POCT IONIZED CALCIUM 1.13 mmol/L Normal 1.12-1.32 [facility] Comment on above: Performed By: #### L [id number] ####[facility] ([facility])[address] [place] [address] POCT PCO2 39.9 mmHg Low 41.0-51.0 [facility] Comment on above: Performed By: #### L [id number] ####[facility] ([facility])[address] [place] [address] POCT PH 7.37 Normal 7.31-7.41 [facility] Comment on above: Performed By: #### L [id number] ####[facility] ([facility])[address] [place] [address] POCT PO2 436 mmHg High 80-105 [facility] Comment on above: Performed By: #### L [id number] ####[facility] ([facility])[address] [place] [address] POCT SO2 100 % High 95-98 [facility] Comment on above: Performed By: #### L [id number] ####[facility] ([facility])[address] [place] [address] Potassium [Moles/Vol] 4.4 mmol/L Normal 3.5-4.9 [facility] Comment on above: Performed By: #### L [id number] ####[facility] ([facility])[address] [place] [address] Sodium [Moles/Vol] 135 mmol/L Low 138.0-146.0 [facility] Comment on above: Performed By: #### L [id number] ####[facility] ([facility])[address] [place] [address] CO2 [Moles/Vol] 23.0 mmol/L Normal 21.0-29.0 [facility] Comment on above: Performed By: #### L [id number] ####[facility] ([facility])[address] [place] [address] Glucose [Mass/Vol] 157 mg/dL High 70-105 [facility] Comment on above: Performed By: #### L [id number] ####[facility] ([facility])[address] [place] [address] HCO3 (Bld) [Moles/Vol] 21.5 mmol/L Low 23.0-28.0 [facility] Comment on above: Performed By: #### L [id number] ####[facility] ([facility])[address] [place] [address] Hematocrit (Bld) [Volume fraction] 19 % Low 38-51 [facility] Comment on above: Performed By: #### L [id number] ####[facility] ([facility])[address] [place] [address] Hemoglobin (Bld) [Mass/Vol] 6.5 g/dL Low 12.0-17.0 [facility] Comment on above: Performed By: #### L [id number] ####[facility] ([facility])[address] [place] [address] POCT BASE EXCESS -4.0 mmol/L Low -2.0-3.0 [facility] Comment on above: Performed By: #### L [id number] ####[facility] ([facility])[address] [place] [address] POCT IONIZED CALCIUM 1.34 mmol/L High 1.12-1.32 [facility] Comment on above: Performed By: #### L [id number] ####[facility] ([facility])[address] [address] POCT PCO2 43.5 mmHg Normal 41.0-51.0 [facility] Comment on above: Performed By: #### L [id number] ####[facility] ([facility] [address] POCT PH 7.30 Low 7.31-7.41 [facility] Comment on above: Performed By: #### L [id number] ####[facility] ([facility] [address] POCT PO2 198 mmHg High 80-105 [facility] Comment on above: Performed By: #### L [id number] ####[facility] ([facility] [address] POCT SO2 100 % High 95-98 [facility] Comment on above: Performed By: #### L [id number] ####[facility] ([facility] [place] [address] Potassium [Moles/Vol] 4.1 mmol/L Normal 3.5-4.9 [facility] Comment on above: Performed By: #### L [id number] ####[facility] ([facility])[address] [place] [address] Sodium [Moles/Vol] 134 mmol/L Low 138.0-146.0 [facility] Comment on above: Performed By: #### L [id number] ####[facility] ([facility])[address] [place] [address] CO2 [Moles/Vol] 24.0 mmol/L Normal 21.0-29.0 [facility] Comment on above: Performed By: #### L [id number] ####[facility] ([facility])[address] [address] Glucose [Mass/Vol] 167 mg/dL High 70-105 [facility] Comment on above: Performed By: #### L [id number] ####[facility] ([facility] [address] HCO3 (Bld) [Moles/Vol] 22.5 mmol/L Low 23.0-28.0 [facility] Comment on above: Performed By: #### L [id number] ####[facility] ([facility] [address] Hematocrit (Bld) [Volume fraction] 24 % Low 38-51 [facility] Comment on above: Performed By: #### L [id number] ####[facility] ([facility] [address] Hemoglobin (Bld) [Mass/Vol] 8.2 g/dL Low 12.0-17.0 [facility] Comment on above: Performed By: #### L [id number] ####[facility] ([facility] [address] POCT BASE EXCESS -3.0 mmol/L Low -2.0-3.0 [facility] Comment on above: Performed By: #### L [id number] ####[facility] ([facility])[address] [address] POCT IONIZED CALCIUM 1.17 mmol/L Normal 1.12-1.32 [facility] Comment on above: Performed By: #### L [id number] ####[facility] ([facility])[address] [address] POCT PCO2 39.6 mmHg Low 41.0-51.0 [facility] Comment on above: Performed By: #### L [id number] ####[facility] ([facility] [place] [address] POCT PH 7.36 Normal 7.31-7.41 [facility] Comment on above: Performed By: #### L [id number] ####[facility] ([facility])[address] [place] [address] POCT PO2 252 mmHg High 80-105 [facility] Comment on above: Performed By: #### L [id number] ####[facility] ([facility])[address] [place] [address] POCT SO2 100 % High 95-98 [facility] Comment on above: Performed By: #### L [id number] ####[facility] ([facility])[address] [place] [address] Potassium [Moles/Vol] 4.6 mmol/L Normal 3.5-4.[address] [facility] Comment on above: Performed By: #### L [id number] ####[facility] ([facility])[address] [place] [address] Sodium [Moles/Vol] 133 mmol/L Low 138.0-146.0 [facility] Comment on above: Performed By: #### L [id number] ####[facility] ([facility])[address] [place] [address] PRBC LEUKOREDUCEDon 01-30-20 ABO and Rh group Nom (Bld) Cross Match Result Compatible Unit Blood Type O Pos Unit Number [id number] Status Information Issued Product ID Red Blood Cells Product Code [id number] Issue Date/Time [id number] Cross Match Result Compatible Unit Blood Type O Pos Unit Number [id number] Status Information Issued Product ID Red Blood Cells Product Code [id number] Issue Date/Time [id number] Normal [facility] Comment on above: Performed By: #### Sammy BCMAN #### [facility] [address] [place] [address] Dr. Joselyn Coffey PROF CHEM 8 (BAS METB)on Anion gap [Moles/Vol] 12.3 mmol/L Normal [facility] Comment on above: Performed By: #### B MP #### [facility] [address] [place] [address] Dr. Joselyn Coffey Calcium [Mass/Vol] 7.3 mg/dL Critically low 8.5-10.1 [facility] Comment on above: Performed By: #### B MP #### [facility] [address] [place] [address] Dr. Joselyn Coffey Chloride [Moles/Vol] 100 mmol/L Normal 98-107 [facility] Comment on above: Performed By: #### B MP #### [facility] [address] [place] [address] Dr. Joselyn Coffey CO2 [Moles/Vol] 23.7 mmol/L Normal 21.0-32.0 [facility] Comment on above: Performed By: #### B MP #### [facility] [address] [place] [address] Dr. Joselyn Coffey Creatinine [Mass/Vol] 0.82 mg/dL Normal 0.70-1.30 [facility] Comment on above: Performed By: #### B MP #### [facility] [address] [place] [address] Dr. Joselyn Coffey EGFR-AF UGANDAN >60 Normal >=60 [facility] Comment on above: Performed By: #### B MP #### [facility] [address] [place] [address] Dr. Joselyn Coffey EGFR-NON AF UGANDAN >60 Normal >=60 [facility] Comment on above: Performed By: #### B MP #### [facility] [address] [place] [address] Dr. Joselyn Coffey Glucose [Mass/Vol] 234 mg/dL Critically high 74-106 [facility] Comment on above: Performed By: #### B MP #### [facility] [address] [place] [address] Dr. Joselyn Coffey Potassium [Moles/Vol] 4.0 mmol/L Normal 3.5-5.1 [facility] Comment on above: Performed By: #### B MP #### [facility] [address] [place] [address] Dr. Joselyn Coffey Sodium [Moles/Vol] 132 mmol/L Critically low 136-145 [facility] Comment on above: Performed By: #### B MP #### [facility] [address] [place] [address] Dr. Joselyn Coffey Urea nitrogen [Mass/Vol] 14.0 mg/dL Normal 7.0-18.0 [facility] Comment on above: Performed By: #### B MP #### [facility] [address] [place] [address] Dr. Joselyn Coffey Urea nitrogen/Creatinine [Mass ratio] 17.1 mg/mg Normal [facility] Comment on above: Performed By: #### B MP #### [facility] [address] [place] [address] Dr. Joselyn Coffey PROTIMEon 01-29-2023 INR Coag (PPP) [Relative time] 1.32 {INR} Normal [facility] Comment on above: Performed By: #### P TT, PT #### [facility] [address] [place] [address] Dr. Joselyn Coffey INR GUIDELINES SEE BELOW Normal [facility] Comment on above: Result Comment: SNOW RED INR: 2.0 - 3.0 CONDITIONS NOT LISTED BELOW 2.5 - 3.5 FOR PROSTHETIC HEART VALVE REPLACEMENT 2.5 - 3.5 RECURRENT THROMBOSIS Performed By: #### P TT, PT #### [facility] [address] [place] [address] Dr. Joselyn Coffey PT Coag (PPP) [Time] 13.8 s Critically high 9.0-11.6 [facility] Comment on above: Performed By: #### P TT, PT #### [facility] [address] [place] [address] Dr. Joselyn Coffey PROTIME-INRon 01-29-2023 INR IN PPP BY COAGULATION ASSAY 1.69 High 0.90-1.10 [facility] Comment on above: Result Comment: ACCC P RECOMMENDED INR FOR WARFARIN THERAPY CONDITION INRPROPHYLAXIS OF VENOUS THROMBOSIS 2-3(HIGH-RISK SURGERY)TREATMENT OF VENOUS THROMBOSIS 2-3TREATMENT OF PULMONARY EMBOLISM 2-3PREVENTION OF SYSTEMIC EMBOLISM: 2-3 ACUTE MYOCARDIAL INFARCTION TISSUE HEART VALVES VALVULAR HEART DISEASE ATRIAL FIBRILLATION RECURRENT SYSTEMIC EMBOLISMMECHANICAL HEART VALVE 2.5-3.5 FROM: ORAL ANTICOAGULANTS. MECHANISM OF ACTION, CLINICAL EFFECTIVENESS, AND OPTIMAL THERAPEUTIC RANGE. CHEST 1995;108:231S-246S. Performed By: #### L [id number] ####[facility] ([employer])[address] [place] [address] PROTHROMBIN TIME (PT) IN PPP BY COAGULATION ASSAY 19.7 Seconds High 12.3-14.8 [facility] Comment on above: Performed By: #### L [id number] ####[facility] ([facility])[address] [place] [address] PTTon 01-29-2023 aPTT Coag (Bld) [Time] 34.5 s Normal 22.3-36.2 [facility] Comment on above: Performed By: #### P TT, PT #### [facility] [address] [place] [address] Dr. Joselyn Coffey TISSUE CULTUREon 01-29-2023 Bacteria identified Cx Nom (Unsp spec) No growth at 5 days Normal [facility] Comment on above: Order Comment: Pre-o p diagnosis:LEFT GROIN PSEUDOANEURYSM Performed By: #### L [id number] ####[facility] ([facility])[address] [place] [address] GRAM STAIN RESULT Normal [facility] Comment on above: Order Comment: Pre-o p diagnosis:LEFT GROIN PSEUDOANEURYSM Result Comment: Many Polymorphonuclear leukocytesNo organisms seen Performed By: #### L [id number] ####[facility] ([facility])[address] [place] [address] TYPE AND SCREENon 01-29-2023 AB SCREEN Negative Normal [facility] Comment on above: Performed By: #### L [id number] ####[facility], ABO group Nom (Bld) O Normal [facility] Comment on above: Performed By: #### L [id number] ####[facility], RH TYPE IN BLOOD Positive Normal [facility] Comment on above: Performed By: #### L [id number] ####[facility], TYPE AND SCREEN Negative Normal [facility] Comment on above: Performed By: #### C ESTHELA #### [facility] [address] [place], [place] [address] Dr. Joselyn Coffey Coding Summary.on 01-18-2023 Coding Summary. [facility] Formson 01-14-2023 Forms [id number]#1.00CD:127 [facility] Physician Orderon 01-12-2023 Physician Order [id number]#1.00CD:127 [facility] Consent for Treatmenton 12-10 Consent for Treatment [id number]#1.00CD:127 [facility] Heart and Vascular Office/Cl inic Noteon 01-06-2023 Heart and Vascular Office/Clinic Note Normal [facility] Comment on above: Result Comment: Elec tronically Signed By: Vickey WISE, Erwin Evans\.br\Date and Time Signed: 01/06/23 12:03 EDT Coding Summary.on 12-27-2022 Coding Summary. [facility] Consent for Treatmenton 12-08 Consent for Treatment [id number]#1.00CD:127 Normal [facility] Heart and Vascular Office/Cl inic Noteon 12-23-2022 Heart and Vascular Office/Clinic Note Normal [facility] Comment on above: Result Comment: Elec tronically Signed By: Vickey WISE, Erwin Evans\.br\Date and Time Signed: 12/23/22 14:51 EDT Coding Summary.on 12-20-2022 Coding Summary. Normal [facility] 36on 12-14-2022 36 Ijeoma patients abiodun mclean called and stated that they just got home & she took Max's Blood Pressure. She stated it was 95/53. She wanted to make sure that you have her phone number [phone] if you need to contact her. Normal [facility] Follow-Upon 12-14-2022 Follow-Up [facility] Consent for Treatmenton Consent for Treatment [id number]#1.00CD:127 Normal [facility] Heart and Vascular Office/Cl inic Noteon 12-09-2022 Heart and Vascular Office/Clinic Note Normal [facility] Comment on above: Result Comment: Elec tronically Signed By: Erwin Hurd MD\.br\Date and Time Signed: 12/09/22 12:18 EST Outside HPon 12-09-2022 Outside HP [id number]#1.00CD:127 Normal [facility] Outside Labson 12-09-2022 Outside Labs [id number]#1.00CD:127 Normal [facility] Outside Progress Noteon Outside Progress Note [id number]#1.00CD:127 Normal [facility] Outside Radiologyon 12-10-19 Outside Radiology [id number]#1.00CD:127 Normal [facility] Outside Recordson 12-09-2022 Outside Records [id number]#[id number]:127 Normal [facility] 30on 12-03-2022 30 Normal [facility] BASIC METABOLIC PANELon 11-11 Anion gap [Moles/Vol] 10 mmol/L Normal 7-20 [facility] Comment on above: Performed By: #### L [id number] ####[facility] ([facility])[address] [place] [address] Calcium [Mass/Vol] 8.1 mg/dL Low 8.6-10.3 [facility] Comment on above: Performed By: #### L [id number] ####[facility] ([facility])[address] [place] [address] Chloride [Moles/Vol] 103 mmol/L Normal 98-107 [facility] Comment on above: Performed By: #### L [id number] ####[facility] ([facility])[address] [place] [address] CO2 [Moles/Vol] 23 mmol/L Normal 21-31 [facility] Comment on above: Performed By: #### L [id number] ####[facility] ([facility])[address] [place] [address] Creatinine [Mass/Vol] 0.49 mg/dL Low 0.70-1.30 [facility] Comment on above: Performed By: #### L [id number] ####[facility] ([facility])[address] [place] [address] GLOMERULAR FILTRATION RATE ML/MIN/1.73 SQ M.PREDICTED 106.9 mL/min/1.73m*2 Normal >60.0 [facility] Comment on above: Result Comment: The [facility]???s estimated glomerular filtration rate (eGFR) will no longer include consideration of race in its calculation. The National Kidney Foundation???s eGFR Task Force developed new recommendations for the estimation of the glomerular filtration rate in the [place] They recommend immediate implementation of the new equation refit without the race variable in all laboratories because the calculation does not include race. In addition to not including race in the calculation and reporting, it included diversity in its development, and has acceptable performance characteristics and potential consequences that do not disproportionately affect any one group of individuals. Performed By: #### L [id number] ####[facility] ([facility] [place] [address] Glucose [Mass/Vol] 109 mg/dL High 70-100 [facility] Comment on above: Performed By: #### L [id number] ####[facility] ([facility])[address] [place] [address] Potassium [Moles/Vol] 3.9 mmol/L Normal 3.5-5.[address] [facility] Comment on above: Performed By: #### L [id number] ####[facility] ([facility])[address] [place] [address] Sodium [Moles/Vol] 132 mmol/L Low 136-145 [facility] Comment on above: Performed By: #### L [id number] ####[facility] ([facility])[address] [place] [address] Urea nitrogen [Mass/Vol] 15 mg/dL Normal 7-25 [facility] Comment on above: Performed By: #### L [id number] ####[facility] ([facility])[address] [place] [address] UREA NITROGEN/CREATININE (MASS RATIO) IN SER/PLAS 30.61 Normal [facility] Comment on above: Performed By: #### L [id number] ####[facility] ([facility])[address] [place] [address] CBCon 12-03-2022 Erythrocyte distribution width (RBC) [Ratio] 18.7 % High 11.5-15.0 [facility] Comment on above: Performed By: #### L [id number] ####[facility] ([facility] [place] [address] ERYTHROCYTE MEAN CORPUSCULAR HEMOGLOBIN CONCENTRATION (G/DL) BY AUTOMATED 32.5 g/dL Normal 32.0-35.0 [facility] Comment on above: Performed By: #### L [id number] ####[facility] ([facility])[address] [place] [address] Hematocrit (Bld) [Volume fraction] 26.5 % Low 39.0-55.0 [facility] Comment on above: Performed By: #### L [id number] ####[facility] ([facility])[address] [place] [address] Hemoglobin (Bld) [Mass/Vol] 8.6 g/dL Low 13.0-17.0 [facility] Comment on above: Performed By: #### L [id number] ####[facility] ([facility])[address] [place] [address] MCH (RBC) [Entitic mass] 31.6 pg Normal 27.0-33.0 [facility] Comment on above: Performed By: #### L [id number] ####[facility] ([facility])[address] [place] [address] MCV (RBC) [Entitic vol] 97.4 fL Normal 82.0-98.0 [facility] Comment on above: Performed By: #### L [id number] ####[facility] ([facility])[address] [place] [address] PLATELETS (10*3/UL) IN BLOOD AUTOMATED COUNT 144 10*3/uL Low 150-400 [facility] Comment on above: Performed By: #### L [id number] ####[facility] ([facility])[address] [place] [address] RBC (Bld) [#/Vol] 2.72 10*6/uL Low 4.20-5.70 [facility] Comment on above: Performed By: #### L [id number] ####[facility] ([facility])[address] [place] [address] WBC (Bld) [#/Vol] 3.94 10*3/uL Low 4.00-10.60 [facility] Comment on above: Performed By: #### L [id number] ####[facility] ([facility])[address] [place] [address] DSon 12-03-2022 DS [facility] POCT GLUCOSE METER UNSOLICIT ED RESULTSon 12-03-2022 Glucose [Mass/Vol] 184 mg/dL High 70-105 [facility] Comment on above: Result Comment: [email or web address] Performed By: #### L [id number] ####[facility] ([facility] [place] [address] Glucose [Mass/Vol] 120 mg/dL High 70-105 [facility] Comment on above: Result Comment: [email or web address] Performed By: #### L [id number] ####[facility] ([facility])[address] [place] [address] 30on 12-02-2022 30 [facility] BASIC METABOLIC PANELon 11-11 Anion gap [Moles/Vol] 10 mmol/L Normal 7-20 [facility] Comment on above: Performed By: #### L [id number] ####[facility] ([facility])[address] [place] [address] Calcium [Mass/Vol] 7.7 mg/dL Low 8.6-10.3 [facility] Comment on above: Performed By: #### L [id number] ####[facility] ([facility])[address] [place] [address] Chloride [Moles/Vol] 103 mmol/L Normal 98-107 [facility] Comment on above: Performed By: #### L [id number] ####[facility] ([facility])[address] [place] [address] CO2 [Moles/Vol] 22 mmol/L Normal 21-31 [facility] Comment on above: Performed By: #### L [id number] ####[facility] ([facility])[address] [place] [address] Creatinine [Mass/Vol] 0.56 mg/dL Low 0.70-1.30 [facility] Comment on above: Performed By: #### L [id number] ####[facility] ([facility])[address] [place] [address] GLOMERULAR FILTRATION RATE ML/MIN/1.73 SQ M.PREDICTED 101.2 mL/min/1.73m*2 Normal >60.0 [facility] Comment on above: Result Comment: The [facility]???s estimated glomerular filtration rate (eGFR) will no longer include consideration of race in its calculation. The National Kidney Foundation???s eGFR Task Force developed new recommendations for the estimation of the glomerular filtration rate in the [place] They recommend immediate implementation of the new equation refit without the race variable in all laboratories because the calculation does not include race. In addition to not including race in the calculation and reporting, it included diversity in its development, and has acceptable performance characteristics and potential consequences that do not disproportionately affect any one group of individuals. Performed By: #### L [id number] ####[facility] ([facility])[address] [place] [address] Glucose [Mass/Vol] 104 mg/dL High 70-100 [facility] Comment on above: Performed By: #### L [id number] ####[facility] ([facility])[address] [place] [address] Potassium [Moles/Vol] 3.9 mmol/L Normal 3.5-5.1 [facility] Comment on above: Performed By: #### L [id number] ####[facility] ([facility])[address] [place] [address] Sodium [Moles/Vol] 131 mmol/L Low 136-145 [facility] Comment on above: Performed By: #### L [id number] ####[facility] ([facility])[address] [place] [address] Urea nitrogen [Mass/Vol] 12 mg/dL Normal 7-25 [facility] Comment on above: Performed By: #### L [id number] ####[facility] ([facility])[address] [place] [address] UREA NITROGEN/CREATININE (MASS RATIO) IN SER/PLAS 21.43 Normal [facility] Comment on above: Performed By: #### L [id number] ####[facility] ([facility])[address] [place] [address] CBCon 12-02-2022 Erythrocyte distribution width (RBC) [Ratio] 18.8 % High 11.5-15.0 [facility] Comment on above: Performed By: #### L [id number] ####[facility] ([facility])[address] [place] [address] ERYTHROCYTE MEAN CORPUSCULAR HEMOGLOBIN CONCENTRATION (G/DL) BY AUTOMATED 32.4 g/dL Normal 32.0-35.0 [facility] Comment on above: Performed By: #### L [id number] ####[facility] ([facility])[address] [place] [address] Hematocrit (Bld) [Volume fraction] 24.7 % Low 39.0-55.0 [facility] Comment on above: Performed By: #### L [id number] ####[facility] ([facility])[address] [place] [address] Hemoglobin (Bld) [Mass/Vol] 8.0 g/dL Low 13.0-17.0 [facility] Comment on above: Performed By: #### L [id number] ####[facility] ([facility])[address] [place] [address] MCH (RBC) [Entitic mass] 31.5 pg Normal 27.0-33.0 [facility] Comment on above: Performed By: #### L [id number] ####[facility] ([facility])[address] [place] [address] MCV (RBC) [Entitic vol] 97.2 fL Normal 82.0-98.0 [facility] Comment on above: Performed By: #### L [id number] ####[facility] ([facility] [place] [address] PLATELETS (10*3/UL) IN BLOOD AUTOMATED COUNT 119 10*3/uL Low 150-400 [facility] Comment on above: Performed By: #### L [id number] ####[facility] ([facility])[address] [place] [address] RBC (Bld) [#/Vol] 2.54 10*6/uL Low 4.20-5.70 [facility] Comment on above: Performed By: #### L [id number] ####[facility] ([facility])[address] [place] [address] WBC (Bld) [#/Vol] 4.59 10*3/uL Normal 4.00-10.60 [facility] Comment on above: Performed By: #### L [id number] ####[facility] ([facility])[address] [place] [address] CONSULTon 12-02-2022 CONSULT Normal [facility] POCT GLUCOSE METER UNSOLICIT ED RESULTSon 12-02-2022 Glucose [Mass/Vol] 215 mg/dL High 70-105 [facility] Comment on above: Result Comment: [email or web address] Performed By: #### L [id number] ####[facility] ([facility])[address] [place] [address] Glucose [Mass/Vol] 176 mg/dL High 70-105 [facility] Comment on above: Result Comment: [email or web address] Performed By: #### L [id number] ####[facility] ([facility])[address] [place] [address] Glucose [Mass/Vol] 227 mg/dL High 70-105 [facility] Comment on above: Result Comment: [email or web address] Performed By: #### L [id number] ####[facility] ([facility])[address] [place] [address] 30on 12-01-2022 30 Normal [facility] 30 Normal [facility] 30 Normal [facility] BASIC METABOLIC PANELon 11-11 Anion gap [Moles/Vol] 9 mmol/L Normal 7-20 [facility] Comment on above: Performed By: #### L [id number] ####[facility] ([facility])[address] [place] [address] Calcium [Mass/Vol] 7.5 mg/dL Low 8.6-10.3 [facility] Comment on above: Performed By: #### L [id number] ####[facility] ([facility])[address] [place] [address] Chloride [Moles/Vol] 101 mmol/L Normal 98-107 [facility] Comment on above: Performed By: #### L [id number] ####[facility] ([facility])[address] [place] [address] CO2 [Moles/Vol] 23 mmol/L Normal 21-31 [facility] Comment on above: Performed By: #### L [id number] ####[facility] ([facility])[address] [place] [address] Creatinine [Mass/Vol] 0.60 mg/dL Low 0.70-1.30 [facility] Comment on above: Performed By: #### L [id number] ####[facility] ([facility])[address] [place] [address] GLOMERULAR FILTRATION RATE ML/MIN/1.73 SQ M.PREDICTED 98.4 mL/min/1.73m*2 Normal >60.0 [facility] Comment on above: Result Comment: The [facility]???s estimated glomerular filtration rate (eGFR) will no longer include consideration of race in its calculation. The National Kidney Foundation???s eGFR Task Force developed new recommendations for the estimation of the glomerular filtration rate in the [place] They recommend immediate implementation of the new equation refit without the race variable in all laboratories because the calculation does not include race. In addition to not including race in the calculation and reporting, it included diversity in its development, and has acceptable performance characteristics and potential consequences that do not disproportionately affect any one group of individuals. Performed By: #### L [id number] ####[facility] ([facility])[address] [place] [address] Glucose [Mass/Vol] 119 mg/dL High 70-100 [facility] Comment on above: Performed By: #### L [id number] ####[facility] ([facility])[address] [place] [address] Potassium [Moles/Vol] 3.9 mmol/L Normal 3.5-5.[address] [facility] Comment on above: Performed By: #### L [id number] ####[facility] ([facility])[address] [place] [address] Sodium [Moles/Vol] 129 mmol/L Low 136-145 [facility] Comment on above: Performed By: #### L [id number] ####[facility] ([facility])[address] [place] [address] Urea nitrogen [Mass/Vol] 11 mg/dL Normal 7-25 [facility] Comment on above: Performed By: #### L [id number] ####[facility] ([facility])[address] [place] [address] UREA NITROGEN/CREATININE (MASS RATIO) IN SER/PLAS 18.33 Normal [facility] Comment on above: Performed By: #### L [id number] ####[facility] ([facility])[address] [place] [address] CBCon 12-01-2022 Erythrocyte distribution width (RBC) [Ratio] 19.1 % High 11.5-15.0 [facility] Comment on above: Performed By: #### L [id number] ####[facility] ([facility])[address] [place] [address] ERYTHROCYTE MEAN CORPUSCULAR HEMOGLOBIN CONCENTRATION (G/DL) BY AUTOMATED 33.2 g/dL Normal 32.0-35.0 [facility] Comment on above: Performed By: #### L [id number] ####[facility] ([facility])[address] [place] [address] Hematocrit (Bld) [Volume fraction] 25.6 % Low 39.0-55.0 [facility] Comment on above: Performed By: #### L [id number] ####[facility] ([facility])[address] [place] [address] Hemoglobin (Bld) [Mass/Vol] 8.5 g/dL Low 13.0-17.0 [facility] Comment on above: Performed By: #### L [id number] ####[facility] ([facility])[address] [place] [address] MCH (RBC) [Entitic mass] 31.8 pg Normal 27.0-33.0 [facility] Comment on above: Performed By: #### L [id number] ####[facility] ([facility])[address] [place] [address] MCV (RBC) [Entitic vol] 95.9 fL Normal 82.0-98.0 [facility] Comment on above: Performed By: #### L [id number] ####[facility] ([facility])[address] [place] [address] PLATELETS (10*3/UL) IN BLOOD AUTOMATED COUNT 114 10*3/uL Low 150-400 [facility] Comment on above: Performed By: #### L [id number] ####[facility] ([facility])[address] [place] [address] RBC (Bld) [#/Vol] 2.67 10*6/uL Low 4.20-5.70 [facility] Comment on above: Performed By: #### L [id number] ####[facility] ([facility])[address] [place] [address] WBC (Bld) [#/Vol] 6.12 10*3/uL Normal 4.00-10.60 [facility] Comment on above: Performed By: #### L [id number] ####[facility] ([facility])[address] [place] [address] MAGNESIUMon 12-01-2022 Magnesium [Mass/Vol] 1.7 mg/dL Low 1.9-2.7 [facility] Comment on above: Performed By: #### L [id number] ####[facility] ([facility])[address] [place] [address] PHOSPHORUSon 12-01-2022 Magnesium [Mass/Vol] 2.7 mg/dL Normal 2.5-5.0 [facility] Comment on above: Performed By: #### L [id number] ####[facility] ([facility])[address] [place] [address] POCT GLUCOSE METER UNSOLICIT ED RESULTSon 12-01-2022 Glucose [Mass/Vol] 233 mg/dL High 70-105 [facility] Comment on above: Result Comment: [email or web address] Performed By: #### L [id number] ####[facility] ([facility])[address] [place] [address] Glucose [Mass/Vol] 161 mg/dL High 70-105 [facility] Comment on above: Result Comment: [email or web address] Performed By: #### L [id number] ####[facility] ([facility])[address] [place] [address] Glucose [Mass/Vol] 137 mg/dL High 70-105 [facility] Comment on above: Result Comment: [email or web address] Performed By: #### L [id number] ####[facility] ([facility])[address] [place] [address] Glucose [Mass/Vol] 125 mg/dL High 70-105 [facility] Comment on above: Result Comment: [email or web address] Performed By: #### L [id number] ####[facility] ([facility])[address] [place] [address] WOUND CULTUREon 12-01-2022 GRAM STAIN RESULT Normal [facility] Comment on above: Order Comment: Super ficial right groin culture please Result Comment: Many Polymorphonuclear leukocytesNo organisms seen Performed By: #### L [id number] ####[facility] ([facility])[address] [place] [address] WOUND CULTURE No growth at 5 days Normal Un [facility] Comment on above: Order Comment: Super ficial right groin culture please Performed By: #### L [id number] ####[facility] ([facility])[address] [place] [address] 30on 11-30-2022 30 Normal [facility] 30 Normal [facility] BASIC METABOLIC PANELon 11-11 Anion gap [Moles/Vol] 7 mmol/L Normal 7-20 [facility] Comment on above: Performed By: #### L [id number] ####[facility] ([facility])[address] [place] [address] Calcium [Mass/Vol] 7.6 mg/dL Low 8.6-10.3 [facility] Comment on above: Performed By: #### L [id number] ####[facility] ([facility])[address] [place] [address] Chloride [Moles/Vol] 102 mmol/L Normal 98-107 [facility] Comment on above: Performed By: #### L [id number] ####[facility] ([facility])[address] [place] [address] CO2 [Moles/Vol] 23 mmol/L Normal 21-31 [facility] Comment on above: Performed By: #### L [id number] ####[facility] ([facility])[address] [place] [address] Creatinine [Mass/Vol] 0.58 mg/dL Low 0.70-1.30 [facility] Comment on above: Performed By: #### L [id number] ####[facility] ([facility])[address] [place] [address] GLOMERULAR FILTRATION RATE ML/MIN/1.73 SQ M.PREDICTED 99.7 mL/min/1.73m*2 Normal >60.0 [facility] Comment on above: Result Comment: The [facility]???s estimated glomerular filtration rate (eGFR) will no longer include consideration of race in its calculation. The National Kidney Foundation???s eGFR Task Force developed new recommendations for the estimation of the glomerular filtration rate in the [place] They recommend immediate implementation of the new equation refit without the race variable in all laboratories because the calculation does not include race. In addition to not including race in the calculation and reporting, it included diversity in its development, and has acceptable performance characteristics and potential consequences that do not disproportionately affect any one group of individuals. Performed By: #### L [id number] ####[facility] ([facility])[address] [place] [address] Glucose [Mass/Vol] 111 mg/dL High 70-100 [facility] Comment on above: Performed By: #### L [id number] ####[facility] ([facility])[address] [place] [place] [address] Potassium [Moles/Vol] 4.2 mmol/L Normal 3.5-5.[address] [facility] Comment on above: Performed By: #### L [id number] ####[facility] ([facility])[address] [place] [place] [address] Sodium [Moles/Vol] 128 mmol/L Low 136-145 [facility] Comment on above: Performed By: #### L [id number] ####[facility] ([facility])[address] [place] [address] Urea nitrogen [Mass/Vol] 14 mg/dL Normal 7-25 [facility] Comment on above: Performed By: #### L [id number] ####[facility] ([facility])[address] [place] [address] UREA NITROGEN/CREATININE (MASS RATIO) IN SER/PLAS 24.14 Normal [facility] Comment on above: Performed By: #### L [id number] ####[facility] ([facility])[address] [place] [address] CBCon 11-30-2022 Erythrocyte distribution width (RBC) [Ratio] 19.7 % High 11.5-15.0 [facility] Comment on above: Performed By: #### L [id number] ####[facility] (BE[facility])[address] [address] ERYTHROCYTE MEAN CORPUSCULAR HEMOGLOBIN CONCENTRATION (G/DL) BY AUTOMATED 33.3 g/dL Normal 32.0-35.0 [facility] Comment on above: Performed By: #### L [id number] ####[facility] (BE[facility]ER)[address] [address] Hematocrit (Bld) [Volume fraction] 24.9 % Low 39.0-55.0 [facility] Comment on above: Performed By: #### L [id number] ####[facility] ([facility]ER)[address] [address] Hemoglobin (Bld) [Mass/Vol] 8.3 g/dL Low 13.0-17.0 [facility] Comment on above: Performed By: #### L [id number] ####[facility] ([facility] [address] MCH (RBC) [Entitic mass] 31.8 pg Normal 27.0-33.0 [facility] Comment on above: Performed By: #### L [id number] ####[facility] ([facility])[address] [place], [place] [address] MCV (RBC) [Entitic vol] 95.4 fL Normal 82.0-98.0 [facility] Comment on above: Performed By: #### L [id number] ####[facility] ([facility])[address] [place] [address] PLATELETS (10*3/UL) IN BLOOD AUTOMATED COUNT 121 10*3/uL Low 150-400 [facility] Comment on above: Performed By: #### L [id number] ####[facility] ([facility])[address] [address] RBC (Bld) [#/Vol] 2.61 10*6/uL Low 4.20-5.70 [facility] Comment on above: Performed By: #### L [id number] ####[facility] ([facility])[address] [place] [address] WBC (Bld) [#/Vol] 5.72 10*3/uL Normal 4.00-10.60 [facility] Comment on above: Performed By: #### L [id number] ####[facility] ([facility])[address] [place] [address] Coding Summary.on 11-30-2022 Coding Summary. Normal [facility] POCT GLUCOSE METER UNSOLICIT ED RESULTSon 11-30-2022 Glucose [Mass/Vol] 130 mg/dL High 70-105 [facility] Comment on above: Result Comment: [email or web address] Performed By: #### L [id number] ####[facility] ([facility] [place] [address] Glucose [Mass/Vol] 111 mg/dL High 70-105 [facility] Comment on above: Result Comment: [email or web address] Performed By: #### L [id number] ####[facility] ([facility])[address] [place] [address] Glucose [Mass/Vol] 210 mg/dL High 70-105 [facility] Comment on above: Result Comment: [email or web address] Performed By: #### L [id number] ####[facility] ([facility])[address] [place] [address] Glucose [Mass/Vol] 132 mg/dL High 70-105 [facility] Comment on above: Result Comment: [email or web address] Performed By: #### L [id number] ####[facility] ([facility])[address] [place] [address] Glucose [Mass/Vol] 132 mg/dL High 70-105 [facility] Comment on above: Result Comment: [email or web address] Performed By: #### L [id number] ####[facility] ([facility]ER)[address] [place] [address] ANESon 11-29-2022 ANES Normal [facility]TT[facility] 11-29-2022 ACTIVATED PARTIAL THROMBOPLASTIN TIME IN PPP BY COAGULATION ASSAY 35.4 Seconds High 25.0-35.0 [facility] Comment on above: Performed By: #### L [id number] ####[facility] ([facility]ER)[address] [place] [address] ARTERIAL BLOOD GAS WITH CO-O XIMETRYon 11-29-2022 Base excess Calc (Bld) [Moles/Vol] -6.0000 mmol/L Low -2.0-3.0 [facility] Comment on above: Order Comment: OR co mplete Performed By: #### L [id number] ####[facility] [id number] [place] [address] [facility] CARBOXYHEMOGLOBIN/HEMO GLOBIN TOTAL % IN BLOOD 2.1 % Normal 0.0-3.0 [facility] Comment on above: Order Comment: OR co mplete Performed By: #### L [id number] ####[facility] [id number] [place] [address] [facility] CO2 (Bld) [Partial pressure] 38 mm[Hg] Normal 35-48 [facility] Comment on above: Order Comment: OR co mplete Performed By: #### L [id number] ####[facility] RESPIR[facility] [id number] [place] [address] [facility] DEOXYGENATED HEMOGLOBIN IN BLOOD 0.0 % Low 1-5 [facility] Comment on above: Order Comment: OR co mplete Performed By: #### L [id number] ####[facility] RESPIRAT[facility] [id number] [place] [address] [facility] HCO3 (Bld) [Moles/Vol] 19.6 mmol/L Low 21.0-28.0 [facility] Comment on above: Order Comment: OR co mplete Performed By: #### L [id number] ####[facility] RESPIR[facility] [id number] [place] [address] [facility] Hemoglobin (Bld) [Mass/Vol] 9.1 g/dL Low 11.7-17.4 [facility] Comment on above: Order Comment: OR co mplete Performed By: #### L [id number] ####[facility] RESPIR[facility] [id number] [place] [address] [facility] METHEMOGLOBIN/100 IN BLOOD 0.5 % Normal 0.0-1.5 [facility] Comment on above: Order Comment: OR co mplete Performed By: #### L [id number] ####[facility] RESPIRATORY [id number] [place] [address] [facility] Oxygen (Bld) [Partial pressure] 258 mm[Hg] High 83-100 [facility] Comment on above: Order Comment: OR co mplete Performed By: #### L [id number] ####[facility] RESPIRATORY [id number] [place] [address] [facility] OXYGEN SATURATION (%) IN ARTERIAL BLOOD 100.0 % High 94.0-98.0 [facility] Comment on above: Order Comment: OR co mplete Performed By: #### L [id number] ####[facility] RESPIRAT[facility] [id number] [place] [address] [facility] OXYGENATED HEMOGLOBIN IN BLOOD 97.4 % High 90.0-95.0 [facility] Comment on above: Order Comment: OR co mplete Performed By: #### L [id number] ####[facility] RESPIR[facility] [id number] [place] [address] [facility] pH (Bld) 7.32 [pH] Low 7.35-7.45 [facility] Comment on above: Order Comment: OR co mplete Performed By: #### L [id number] ####[facility] RESPIRAT[facility] [id number] [place] [address] [facility] SOURCE OF OXYGEN Vent Normal [facility] Comment on above: Order Comment: OR co mplete Performed By: #### L [id number] ####[facility] RESPIRAT[facility] [id number] [place] [address] [facility] Base excess Calc (Bld) [Moles/Vol] -5.1000 mmol/L Low -2.0-3.0 [facility] Comment on above: Order Comment: Or ve nt complete Performed By: #### L [id number] ####[facility] RESPIRAT[facility] [id number] [place] [address] [facility] CARBOXYHEMOGLOBIN/HEMO GLOBIN TOTAL % IN BLOOD 2.3 % Normal 0.0-3.0 [facility] Comment on above: Order Comment: Or ve nt complete Performed By: #### L [id number] ####[facility] RESPIRAT[facility] [id number] [place] [address] [facility] CO2 (Bld) [Partial pressure] 35 mm[Hg] Normal 35-48 [facility] Comment on above: Order Comment: Or ve nt complete Performed By: #### L [id number] ####[facility] RESPIRATORY [id number] [place] [address] [facility] DEOXYGENATED HEMOGLOBIN IN BLOOD 0.0 % Low 1-5 [facility] Comment on above: Order Comment: Or ve nt complete Performed By: #### L [id number] ####[facility] RESPIRATORY [id number] [place] [address] [facility] HCO3 (Bld) [Moles/Vol] 19.8 mmol/L Low 21.0-28.0 [facility] Comment on above: Order Comment: Or ve nt complete Performed By: #### L [id number] ####[facility] RESPIRATORY [id number] [place] [address] [facility] Hemoglobin (Bld) [Mass/Vol] 8.5 g/dL Low 11.7-17.4 [facility] Comment on above: Order Comment: Or ve nt complete Performed By: #### L [id number] ####[facility] RESPIRAT[facility] [id number] [place] [address] [facility] METHEMOGLOBIN/100 IN BLOOD 0.6 % Normal 0.0-1.5 [facility] Comment on above: Order Comment: Or ve nt complete Performed By: #### L [id number] ####[facility] RESPIRATORY [id number] [place] [address] [facility] Oxygen (Bld) [Partial pressure] 303 mm[Hg] High 83-100 [facility] Comment on above: Order Comment: Or ve nt complete Performed By: #### L [id number] ####[facility] RESPIRATORY [id number] [address] [place] OXYGEN SATURATION (%) IN ARTERIAL BLOOD 100.0 % High 94.0-98.0 [facility] Comment on above: Order Comment: Or ve nt complete Performed By: #### L [id number] ####[facility] RESPIRATORY [id number] [place] [address] [place] OXYGENATED HEMOGLOBIN IN BLOOD 97.1 % High 90.0-95.0 [facility] Comment on above: Order Comment: Or ve nt complete Performed By: #### L [id number] ####[facility] RESPIRATORY [id number] [place] [address] [facility] pH (Bld) 7.36 [pH] Normal 7.35-7.45 [facility] Comment on above: Order Comment: Or ve nt complete Performed By: #### L [id number] ####[facility] RESPIRATORY [id number] [place] [address] [facility] SOURCE OF OXYGEN Vent Normal [facility] Comment on above: Order Comment: Or ve nt complete Performed By: #### L [id number] ####[facility] RESPIRATORY [id number] [place] [address] [facility] BASIC METABOLIC PANELon 11-11 Anion gap [Moles/Vol] 7 mmol/L Normal 7-20 [facility] Comment on above: Performed By: #### L [id number] ####[facility] (BE[facility]ER)[address] [place] [place] [address] Calcium [Mass/Vol] 7.8 mg/dL Low 8.6-10.3 [facility] Comment on above: Performed By: #### L [id number] ####[facility] (BE[facility]ER)[address] [place] [place] [address] Chloride [Moles/Vol] 101 mmol/L Normal 98-107 [facility] Comment on above: Performed By: #### L [id number] ####[facility] (BE[facility]ER)[address] [place] [address] CO2 [Moles/Vol] 23 mmol/L Normal 21-31 [facility] Comment on above: Performed By: #### L [id number] ####[facility] ([facility])[address] [place] [address] Creatinine [Mass/Vol] 0.65 mg/dL Low 0.70-1.30 [facility] Comment on above: Performed By: #### L [id number] ####[facility] ([facility])[address] [place] [address] GLOMERULAR FILTRATION RATE ML/MIN/1.73 SQ M.PREDICTED 95.2 mL/min/1.73m*2 Normal >60.0 [facility] Comment on above: Result Comment: The [facility]???s estimated glomerular filtration rate (eGFR) will no longer include consideration of race in its calculation. The National Kidney Foundation???s eGFR Task Force developed new recommendations for the estimation of the glomerular filtration rate in the [place] They recommend immediate implementation of the new equation refit without the race variable in all laboratories because the calculation does not include race. In addition to not including race in the calculation and reporting, it included diversity in its development, and has acceptable performance characteristics and potential consequences that do not disproportionately affect any one group of individuals. Performed By: #### L [id number] ####[facility] ([facility])[address] [place] [address] Glucose [Mass/Vol] 116 mg/dL High 70-100 [facility] Comment on above: Performed By: #### L [id number] ####[facility] ([facility])[address] [place] [address] Potassium [Moles/Vol] 4.4 mmol/L Normal 3.5-5.1 [facility] Comment on above: Performed By: #### L [id number] ####[facility] ([facility])[address] [place] [address] Sodium [Moles/Vol] 127 mmol/L Low 136-145 [facility] Comment on above: Performed By: #### L [id number] ####[facility] (BE[facility]ER)[address] [place] [address] Urea nitrogen [Mass/Vol] 21 mg/dL Normal 7-25 [facility] Comment on above: Performed By: #### L [id number] ####[facility] (BEAKER)[address] [place] [address] UREA NITROGEN/CREATININE (MASS RATIO) IN SER/PLAS 32.31 Normal [facility] Comment on above: Performed By: #### L [id number] ####[facility] (BEAKER)[address] [place] [address] Anion gap [Moles/Vol] 9 mmol/L Normal 7-20 [facility] Comment on above: Performed By: #### L [id number] ####[facility] (BEAKER)[address] [place] [address] Calcium [Mass/Vol] 7.6 mg/dL Low 8.6-10.3 [facility] Comment on above: Performed By: #### L [id number] ####[facility] (BEAKER)[address] [place] [address] Chloride [Moles/Vol] 104 mmol/L Normal 98-107 [facility] Comment on above: Performed By: #### L [id number] ####[facility] (BEAKER)[address] [place] [address] CO2 [Moles/Vol] 20 mmol/L Low 21-31 [facility] Comment on above: Performed By: #### L [id number] ####[facility] (BEAKER)[address] [place] [address] Creatinine [Mass/Vol] 0.80 mg/dL Normal 0.70-1.30 [facility] Comment on above: Performed By: #### L [id number] ####[facility] (BEAKER)[address] [place] [address] GLOMERULAR FILTRATION RATE ML/MIN/1.73 SQ M.PREDICTED 87.4 mL/min/1.73m*2 Normal >60.0 [facility] Comment on above: Result Comment: [facility]???s estimated glomerular filtration rate (eGFR) will no longer include consideration of race in its calculation. The National Kidney Foundation???s eGFR Task Force developed new recommendations for the estimation of the glomerular filtration rate in the [place] They recommend immediate implementation of the new equation refit without the race variable in all laboratories because the calculation does not include race. In addition to not including race in the calculation and reporting, it included diversity in its development, and has acceptable performance characteristics and potential consequences that do not disproportionately affect any one group of individuals. Performed By: #### L [id number] ####[facility] (BEAKER)[address] [place] [address] Glucose [Mass/Vol] 160 mg/dL High 70-100 [facility] Comment on above: Performed By: #### L [id number] ####[facility] (BEAKER)[address] [place] [address] Potassium [Moles/Vol] 4.2 mmol/L Normal 3.5-5.1 [facility] Comment on above: Performed By: #### L [id number] ####[facility] (BEAKER)[address] [place] [address] Sodium [Moles/Vol] 129 mmol/L Low 136-145 [facility] Comment on above: Performed By: #### L [id number] ####[facility] (BEAKER)[address] [place] [address] Urea nitrogen [Mass/Vol] 23 mg/dL Normal 7-25 [facility] Comment on above: Performed By: #### L [id number] ####[facility] (BEAKER)[address] [place] [address] UREA NITROGEN/CREATININE (MASS RATIO) IN SER/PLAS 28.75 Normal [facility] Comment on above: Performed By: #### L [id number] ####[facility] (BEAKER)[address] [place] [address] CALCIUM, IONIZEDon 3 CALCIUM IONIZED (MMOL/L) IN BLOOD 1.34 mmol/L High 1.15-1.33 [facility] Comment on above: Performed By: #### C ALCIUM, IONIZED ####[facility] RESPIRATORY [id number] [place] [address] [facility] CALCIUM IONIZED (MMOL/L) IN BLOOD 1.13 mmol/L Low 1.15-1.33 [facility] Comment on above: Performed By: #### C ALCIUM, IONIZED ####[facility] RESPIRATORY [id number] [place] [address] [facility] CBCon 11-29-2022 Erythrocyte distribution width (RBC) [Ratio] 20.0 % High 11.5-15.0 [facility] Comment on above: Performed By: #### L [id number] ####[facility] (BEAKER)[address] [place] [address] ERYTHROCYTE MEAN CORPUSCULAR HEMOGLOBIN CONCENTRATION (G/DL) BY AUTOMATED 34.1 g/dL Normal 32.0-35.0 [facility] Comment on above: Performed By: #### L [id number] ####[facility] LAB (BEAKER)[address] [place] [address] Hematocrit (Bld) [Volume fraction] 27.0 % Low 39.0-55.0 [facility] Comment on above: Performed By: #### L [id number] ####[facility] (BEAKER)[address] [place] [address] Hemoglobin (Bld) [Mass/Vol] 9.2 g/dL Low 13.0-17.0 [facility] Comment on above: Performed By: #### L [id number] ####[facility] (BEAKER)[address] [place] [address] MCH (RBC) [Entitic mass] 31.7 pg Normal 27.0-33.0 [facility] Comment on above: Performed By: #### L [id number] ####[facility] (BEAKER)[address] [place] [address] MCV (RBC) [Entitic vol] 93.1 fL Normal 82.0-98.0 [facility] Comment on above: Performed By: #### L [id number] ####[facility] (BEAKER)[address] [place] [address] PLATELETS (10*3/UL) IN BLOOD AUTOMATED COUNT 143 10*3/uL Low 150-400 [facility] Comment on above: Performed By: #### L [id number] ####[facility] (BEAKER)[address] [place] [address] RBC (Bld) [#/Vol] 2.90 10*6/uL Low 4.20-5.70 [facility] Comment on above: Performed By: #### L [id number] ####[facility] (BEAKER)[address] [place] [address] WBC (Bld) [#/Vol] 8.50 10*3/uL Normal 4.00-10.60 [facility] Comment on above: Performed By: #### L [id number] ####[facility] (BEAKER)[address] [place] [address] Erythrocyte distribution width (RBC) [Ratio] 19.3 % High 11.5-15.0 [facility] Comment on above: Performed By: #### L [id number] ####[facility] (BEAKER)[address] [place] [address] ERYTHROCYTE MEAN CORPUSCULAR HEMOGLOBIN CONCENTRATION (G/DL) BY AUTOMATED 33.2 g/dL Normal 32.0-35.0 [facility] Comment on above: Performed By: #### L [id number] ####[facility] (BEAKER)[address] [place] [address] Hematocrit (Bld) [Volume fraction] 28.0 % Low 39.0-55.0 [facility] Comment on above: Performed By: #### L [id number] ####[facility] (BEAKER)[address] [place] [address] Hemoglobin (Bld) [Mass/Vol] 9.3 g/dL Low 13.0-17.0 [facility] Comment on above: Performed By: #### L [id number] ####[facility] (BEAKER)[address] [address] MCH (RBC) [Entitic mass] 31.5 pg Normal 27.0-33.0 [facility] Comment on above: Performed By: #### L [id number] ####[facility] ([facility] [address] MCV (RBC) [Entitic vol] 94.9 fL Normal 82.0-98.0 [facility] Comment on above: Performed By: #### L [id number] ####[facility] ([facility] [address] PLATELETS (10*3/UL) IN BLOOD AUTOMATED COUNT 139 10*3/uL Low 150-400 [facility] Comment on above: Performed By: #### L [id number] ####[facility] ([facility])[address] [address] RBC (Bld) [#/Vol] 2.95 10*6/uL Low 4.20-5.70 [facility] Comment on above: Performed By: #### L [id number] ####[facility] ([facility] [address] WBC (Bld) [#/Vol] 11.01 10*3/uL High 4.00-10.60 [facility] Comment on above: Performed By: #### L [id number] ####[facility] ([facility] [address] CBC WITH AUTO DIFFERENTIALon 11-29-2022 Erythrocyte distribution width (RBC) [Ratio] 19.3 % High 11.5-15.0 [facility] Comment on above: Performed By: #### L [id number] ####[facility] (BEAKER)[address] [address] ERYTHROCYTE MEAN CORPUSCULAR HEMOGLOBIN CONCENTRATION (G/DL) BY AUTOMATED 32.5 g/dL Normal 32.0-35.0 [facility] Comment on above: Performed By: #### L [id number] ####[facility] ([facility])[address] [place] [address] Hematocrit (Bld) [Volume fraction] 27.4 % Low 39.0-55.0 [facility] Comment on above: Performed By: #### L [id number] ####[facility] ([facility])[address] [place] [address] Hemoglobin (Bld) [Mass/Vol] 8.9 g/dL Low 13.0-17.0 [facility] Comment on above: Performed By: #### L [id number] ####[facility] ([facility])[address] [place] [address] MCH (RBC) [Entitic mass] 32.6 pg Normal 27.0-33.0 [facility] Comment on above: Performed By: #### L [id number] ####[facility] ([facility])[address] [place] [address] MCV (RBC) [Entitic vol] 100.4 fL High 82.0-98.0 [facility] Comment on above: Performed By: #### L [id number] ####[facility] ([facility])[address] [place] [address] NRBC (PER 100 WBCS) BY AUTOMATED COUNT 0.0 % Normal 0.0-0.0 [facility] Comment on above: Performed By: #### L [id number] ####[facility] ([facility])[address] [place] [address] PLATELETS (10*3/UL) IN BLOOD AUTOMATED COUNT 313 10*3/uL Normal 150-400 [facility] Comment on above: Performed By: #### L [id number] ####[facility] ([facility])[address] [place] [address] RBC (Bld) [#/Vol] 2.73 10*6/uL Low 4.20-5.70 [facility] Comment on above: Performed By: #### L [id number] ####[facility] ([facility] [place] [address] WBC (Bld) [#/Vol] 12.64 10*3/uL High 4.00-10.60 [facility] Comment on above: Performed By: #### L [id number] ####[facility] ([facility] [place] [address] COMPREHENSIVE METABOLIC PANE Sridhar 11-29-2022 Albumin [Mass/Vol] 2.8 g/dL Low 3.5-5.7 [facility] Comment on above: Performed By: #### L [id number] ####[facility] ([facility])[address] [place] [address] ALP [Catalytic activity/Vol] 88 U/L Normal 34-104 [facility] Comment on above: Performed By: #### L [id number] ####[facility] [facility] [place] [address] ALT [Catalytic activity/Vol] 51 U/L Normal 7-52 [facility] Comment on above: Performed By: #### L [id number] ####[facility] ([facility])[address] [place] [address] Anion gap [Moles/Vol] 13 mmol/L Normal 7-20 [facility] Comment on above: Performed By: #### L [id number] ####[facility] ([facility])[address] [place] [address] AST [Catalytic activity/Vol] 37 U/L Normal 13-39 [facility] Comment on above: Performed By: #### L [id number] ####[facility] ([facility])[address] [place] [address] Bilirubin [Mass/Vol] 1.5 mg/dL High 0.3-1.0 [facility] Comment on above: Performed By: #### L [id number] ####[facility] ([facility])[address] [place] [address] Calcium [Mass/Vol] 8.2 mg/dL Low 8.6-10.3 [facility] Comment on above: Performed By: #### L [id number] ####[facility] ([facility])[address] [place] [address] Chloride [Moles/Vol] 99 mmol/L Normal 98-107 [facility] Comment on above: Performed By: #### L [id number] ####[facility] ([facility])[address] [place] [address] CO2 [Moles/Vol] 20 mmol/L Low 21-31 [facility] Comment on above: Performed By: #### L [id number] ####[facility] ([facility])[address] [place] [address] Creatinine [Mass/Vol] 0.89 mg/dL Normal 0.70-1.30 [facility] Comment on above: Performed By: #### L [id number] ####[facility] ([facility])[address] [place] [address] GLOMERULAR FILTRATION RATE ML/MIN/1.73 SQ M.PREDICTED 83.6 mL/min/1.73m*2 Normal >60.0 [facility] Comment on above: Result Comment: The [facility]???s estimated glomerular filtration rate (eGFR) will no longer include consideration of race in its calculation. The National Kidney Foundation???s eGFR Task Force developed new recommendations for the estimation of the glomerular filtration rate in the [place] They recommend immediate implementation of the new equation refit without the race variable in all laboratories because the calculation does not include race. In addition to not including race in the calculation and reporting, it included diversity in its development, and has acceptable performance characteristics and potential consequences that do not disproportionately affect any one group of individuals. Performed By: #### L [id number] ####[facility] ([facility])[address] [place] [address] Glucose [Mass/Vol] 232 mg/dL High 70-100 [facility] Comment on above: Performed By: #### L [id number] ####[facility] ([facility])[address] [place] [address] Potassium [Moles/Vol] 4.8 mmol/L Normal 3.5-5.1 [facility] Comment on above: Performed By: #### L [id number] ####[facility] ([facility])[address] [place] [address] Protein [Mass/Vol] 5.8 g/dL Low 6.0-8.3 [facility] Comment on above: Performed By: #### L [id number] ####[facility] ([facility])[address] [place] [address] Sodium [Moles/Vol] 127 mmol/L Low 136-145 [facility] Comment on above: Performed By: #### L [id number] ####[facility] ([facility])[address] [place] [address] Urea nitrogen [Mass/Vol] 24 mg/dL Normal 7-25 [facility] Comment on above: Performed By: #### L [id number] ####[facility] ([facility])[address] [place] [address] UREA NITROGEN/CREATININE (MASS RATIO) IN SER/PLAS 26.97 Normal [facility] Comment on above: Performed By: #### L [id number] ####[facility] ([facility])[address] [place] [address] EDNURSon 11-29-2022 EDNURS Normal [facility] EDPROVon 11-29-2022 EDPROV Normal [facility] EDPROV Normal [facility] HPon 11-29-2022 HP Normal [facility] MAGNESIUMon 11-29-2022 Magnesium [Mass/Vol] 1.8 mg/dL Low 1.9-2.7 [facility] Comment on above: Performed By: #### L [id number] ####[facility] ([facility])[address] [place] [address] MANUAL DIFFERENTIALon 2022 ANISOCYTOSIS PRESENCE IN BLOOD BY LIGHT MICROSCOPY Moderate Normal [facility] Comment on above: Performed By: #### L [id number] ####[facility] ([facility])[address] [place] [address] BASOPHILS (10*3/UL) IN BLOOD BY CALCULATION 0.04 10*3/uL Normal [facility] Comment on above: Performed By: #### L [id number] ####[facility] ([facility])[address] [place] [address] BASOPHILS/100 LEUKOCYTES IN BLOOD BY AUTOMATED COUNT 0.3 % Normal 0.0-1.0 [facility] Comment on above: Performed By: #### L [id number] ####[facility] ([facility])[address] [place] [address] HELLEN CELLS PRESENCE IN BLOOD BY LIGHT MICROSCOPY Moderate Normal [facility] Comment on above: Performed By: #### L [id number] ####[facility] ([facility])[address] [place] [address] EOSINOPHILS (10*3/UL) IN BLOOD BY CALCULATION 0.08 10*3/uL Normal [facility] Comment on above: Performed By: #### L [id number] ####[facility] ([facility])[address] [place] [address] EOSINOPHILS/100 LEUKOCYTES IN BLOOD BY AUTOMATED COUNT 0.6 % Normal 0.0-6.0 [facility] Comment on above: Performed By: #### L [id number] ####[facility] ([facility])[address] [place] [address] IMMATURE GRANULOCYTES (10*3/UL) IN BLOOD BY CALCULATION 0.09 Normal [facility] Comment on above: Performed By: #### L [id number] ####[facility] ([facility])[address] [place] [address] IMMATURE GRANULOCYTES/100 LEUKOCYTES IN BLOOD BY AUTOMATED COUNT 0.7 % Normal 0.0-1.0 [facility] Comment on above: Performed By: #### L [id number] ####[facility] ([facility])[address] [place] [address] LYMPHOCYTES (10*3/UL) IN BLOOD BY CALCULATION 1.09 10*3/uL Low 1.20-4.00 [facility] Comment on above: Performed By: #### L [id number] ####[facility] ([facility])[address] [place] [address] LYMPHOCYTES/100 LEUKOCYTES IN BLOOD BY AUTOMATED COUNT 8.6 % Low 20.0-45.0 [facility] Comment on above: Performed By: #### L [id number] ####[facility] ([facility])[address] [place] [address] MONOCYTES (10*3/UL) IN BLOOD BY CALCUATION 1.35 10*3/uL Normal [facility] Comment on above: Performed By: #### L [id number] ####[facility] ([facility])[address] [place] [address] MONOCYTES/100 LEUKOCYTES IN BLOOD BY AUTOMATED COUNT 10.7 % Normal 5.0-12.0 [facility] Comment on above: Performed By: #### L [id number] ####[facility] ([facility])[address] [place] [address] NEUTROPHILS (10*3/UL) IN BLOOD BY CALCULATION 10.0 10*3/uL High 1.6-7.6 [facility] Comment on above: Performed By: #### L [id number] ####[facility] ([facility])[address] [place] [address] NEUTROPHILS/100 LEUKOCYTES IN BLOOD BY AUTOMATED COUNT 79.1 % High 40.0-72.0 [facility] Comment on above: Performed By: #### L [id number] ####[facility] ([facility])[address] [place] [address] POIKILOCYTOSIS (PRESENCE) IN BLOOD BY LIGHT MICROSCOPY Moderate Normal [facility] Comment on above: Performed By: #### L [id number] ####[facility] ([facility])[address] [place] [address] POLYCHROMASIA IN BLOOD BY LIGHT MICROSCOPY Slight Normal [facility] Comment on above: Performed By: #### L [id number] ####[facility] ([facility])[address] [place] [address] OPNOTEon 11-29-2022 OPNOTE Normal [facility] PATHOLOGY REVIEWon 3 PATHOLOGY REVIEW Electronically cecelia d by Susan Rivera MD on 11/29/22 at 10:14 AM. [facility] Comment on above: Performed By: #### L [id number] ####[facility] ([facility])[address] [place] [address] PHOSPHORUSon 11-29-2022 Magnesium [Mass/Vol] 2.9 mg/dL Normal 2.5-5.0 [facility] Comment on above: Performed By: #### L [id number] ####[facility] ([facility])[address] [place] [address] POCT GLUCOSE METER UNSOLICIT ED RESULTSon 11-29-2022 Glucose [Mass/Vol] 121 mg/dL High 70-105 [facility] Comment on above: Result Comment: jgig and Performed By: #### L [id number] ####[facility] ([facility])[address] [place] [address] Glucose [Mass/Vol] 167 mg/dL High 70-105 [facility] Comment on above: Result Comment: svan dyg Performed By: #### L [id number] ####[facility] ([facility])[address] [place] [address] Glucose [Mass/Vol] 242 mg/dL High 70-105 [facility] Comment on above: Result Comment: [email or web address] Performed By: #### L [id number] ####[facility] ([facility])[address] [place] [address] POTASSIUM, WHOLE BLOODon Potassium [Moles/Vol] 5.0 mmol/L Normal 3.5-5.1 [facility] Comment on above: Performed By: #### P OTASSIUM, WHOLE BLOOD ####[facility] [id number] [place] [address] [facility] Potassium [Moles/Vol] 5.2 mmol/L High 3.5-5.1 [facility] Comment on above: Performed By: #### P OTASSIUM, WHOLE BLOOD ####[facility] [id number] [place] [address] [facility] PROTIME-INRon 11-29-2022 INR IN PPP BY COAGULATION ASSAY 1.53 High 0.90-1.10 [facility] Comment on above: Result Comment: ACCC P RECOMMENDED INR FOR WARFARIN THERAPY CONDITION INRPROPHYLAXIS OF VENOUS THROMBOSIS 2-3(HIGH-RISK SURGERY)TREATMENT OF VENOUS THROMBOSIS 2-3TREATMENT OF PULMONARY EMBOLISM 2-3PREVENTION OF SYSTEMIC EMBOLISM: 2-3 ACUTE MYOCARDIAL INFARCTION TISSUE HEART VALVES VALVULAR HEART DISEASE ATRIAL FIBRILLATION RECURRENT SYSTEMIC EMBOLISMMECHANICAL HEART VALVE 2.5-3.5 FROM: ORAL ANTICOAGULANTS. MECHANISM OF ACTION, CLINICAL EFFECTIVENESS, AND OPTIMAL THERAPEUTIC RANGE. CHEST 1995;108:231S-246S. Performed By: #### L [id number] ####[facility] ([facility])[address] [place] [address] PROTHROMBIN TIME (PT) IN PPP BY COAGULATION ASSAY 18.2 Seconds High 12.3-14.8 [facility] Comment on above: Performed By: #### L [id number] ####[facility] ([facility])[address] [place] [address] SODIUM, WHOLE BLOODon 2022 SODIUM, WHOLE BLOOD 126 Low 136-145 [facility] Comment on above: Performed By: #### S ODIUM, WHOLE BLOOD ####[facility] [id number] [place] [address] [place] SODIUM, WHOLE BLOOD 125 Low 136-145 [facility] Comment on above: Performed By: #### S ODIUM, WHOLE BLOOD ####[facility] RESP[facility] [id number] [place] [address] [place] TROPONIN Ion 11-29-2022 Troponin I.cardiac [Mass/Vol] 0.01 ng/mL Normal 0.00-0.04 [facility] Comment on above: Performed By: #### L [id number] ####[facility] ([facility])[address] [place] [address] TYPE AND SCREENon 11-29-2022 AB SCREEN Negative Normal [facility] Comment on above: Performed By: #### L [id number] ####[facility], ABO group Nom (Bld) O Normal [facility] Comment on above: Performed By: #### L [id number] ####[facility], RH TYPE IN BLOOD Positive Normal [facility] Comment on above: Performed By: #### L [id number] ####[facility], URINALYSIS MICROSCOPIC WITH REFLEX CULTUREon 11-29-2022 CASTS IN URINE Normal [facility] Comment on above: Performed By: #### L [id number] ####[facility] ([facility])[address] [place] [address] CRYSTALS IN URINE Normal [facility] Comment on above: Performed By: #### L [id number] ####[facility] ([facility])[address] [place] [address] LEUKOCYTE ESTERASE PRESENCE IN URINE BY TEST STRIP Small Abnormal Negative [facility] Comment on above: Performed By: #### L [id number] ####[facility] ([facility])[address] [place] [address] Order Comment: 0000 Performed By: #### L [id number] ####[facility] ([facility])[address] [place] [address] MUCUS (#/HPF) IN URINE SEDIMENT Occasional Normal None Seen, Occasional, Few [facility] Comment on above: Performed By: #### L [id number] ####[facility] ([facility])[address] [place] [address] NITRITE PRESENCE IN URINE Negative Normal Negative [facility] Comment on above: Performed By: #### L [id number] ####[facility] ([facility])[address] [place] [address] Order Comment: 0000 Performed By: #### L [id number] ####[facility] ([facility])[address] [place] [address] OTHER MICROSCOPIC ELEMENTS Normal [facility] Comment on above: Performed By: #### L [id number] ####[facility] ([facility])[address] [place] [address] RBC (#/HPF) IN URINE SEDIMENT 3-5 Abnormal None Seen [facility] Comment on above: Performed By: #### L [id number] ####[facility] ([facility])[address] [place] [address] SQUAMOUS EPITHELIAL CELLS (#/HPF) IN URINE SEDIMENT None Seen Normal None Seen, Occasional [facility] Comment on above: Performed By: #### L [id number] ####[facility] ([facility])[address] [place] [address] WBC (LEUKOCYTE) (#/HPF) IN URINE SEDIMENT 11-20 Abnormal None Seen [facility] Comment on above: Performed By: #### L [id number] ####[facility] ([facility])[address] [place] [address] YEAST, BUDDING (#/HPF) IN URINE Occasional Abnormal None Seen [facility] Comment on above: Performed By: #### L [id number] ####[facility] ([facility])[address] [place] [address] URINALYSIS WITH REFLEX CULTU REon 11-29-2022 BILIRUBIN, TOTAL PRESENCE IN URINE Negative Normal Negative [facility] Comment on above: Order Comment: 0000 Performed By: #### L [id number] ####[facility] ([facility])[address] [place] [address] Clarity (U) Slightly Cloudy Abnormal Clear [facility] Comment on above: Order Comment: 0000 Performed By: #### L [id number] ####[facility] ([facility])[address] [place] [address] Color (U) Dark Yellow Normal Yellow, Dark Yellow, Straw [facility] Comment on above: Order Comment: 0000 Performed By: #### L [id number] ####[facility] ([facility])[address] [place] [address] Glucose (U) [Mass/Vol] Negative Normal Negative [facility] Comment on above: Order Comment: 0000 Performed By: #### L [id number] ####[facility] ([facility])[address] [place] [address] HEMOGLOBIN PRESENCE IN URINE Trace Abnormal Negative [facility] Comment on above: Order Comment: 0000 Performed By: #### L [id number] ####[facility] ([facility])[address] [place] [address] Ketones Ql (U) Negative Normal Negative [facility] Comment on above: Order Comment: 0000 Performed By: #### L [id number] ####[facility] ([facility])[address] [place] [address] pH (U) 6.0 [pH] Normal 5.0-8.0 [facility] Comment on above: Order Comment: 0000 Performed By: #### L [id number] ####[facility] ([facility])[address] [place] [address] Protein (U) [Mass/Vol] Negative Normal Negative [facility] Comment on above: Order Comment: 0000 Performed By: #### L [id number] ####[facility] ([facility])[address] [place] [address] Specific gravity (U) [Rel density] 1.020 Normal 1.015-1.020 [facility] Comment on above: Order Comment: 0000 Performed By: #### L [id number] ####[facility] ([facility])[address] [place] [address] UROBILINOGEN (EU/DL) IN URINE 1.0 EU/dL Normal Negative [facility] Comment on above: Order Comment: 0000 Performed By: #### L [id number] ####[facility] ([facility])[address] [place] [address] URINE CULTURE, ROUTINEon Ampicillin [Susc] >16 Resistant [facility] Comment on above: Performed By: #### L [id number] ####[facility] ([facility])[address] [place] [address] Ampicillin+Sulbactam [Susc] >16/8 Resistant [facility] Comment on above: Performed By: #### L [id number] ####[facility] ([facility])[address] [place] [address] Aztreonam [Susc] >16 Resistant [facility] Comment on above: Performed By: #### L [id number] ####[facility] ([facility])[address] [place] [address] ceFAZolin [Susc] >16 Resistant [facility] Comment on above: Performed By: #### L [id number] ####[facility] ([facility])[address] [place] [address] Cefepime [Susc] 16 ug/ml Resistant [facility] Comment on above: Performed By: #### L [id number] ####[facility] ([facility])[address] [place] [address] cefTRIAXone [Susc] >32 Resistant [facility] Comment on above: Performed By: #### L [id number] ####[facility] ([facility])[address] [place] [address] Ciprofloxacin [Susc] 0.5 ug/ml Invalid Interpretation Code [facility] Comment on above: Performed By: #### L [id number] ####[facility] ([facility] [place] [address] Ertapenem [Susc] 2 ug/ml Resistant [facility] Comment on above: Performed By: #### L [id number] ####[facility] ([facility])[address] [place] [address] Gentamicin [Susc] <=2 Susceptible [facility] Comment on above: Performed By: #### L [id number] ####[facility] ([facility])[address] [place] [address] Meropenem [Susc] <=0.5 Susceptible [facility] Comment on above: Performed By: #### L [id number] ####[facility] ([facility])[address] [place] [address] Nitrofurantoin [Susc] >64 Resistant [facility] Comment on above: Performed By: #### L [id number] ####[facility] ([facility])[address] [place] [address] Piperacillin+Tazobacta m [Susc] >64/4 Resistant [facility] Comment on above: Performed By: #### L [id number] ####[facility] ([facility])[address] [place] [place] [address] Tobramycin [Susc] <=2 Susceptible [facility] Comment on above: Performed By: #### L [id number] ####[facility] ([facility])[address] [place] [place] [address] Trimethoprim+Sulfameth oxazole [Susc] <=0.5/9.5 Susceptible [facility] Comment on above: Performed By: #### L [id number] ####[facility] ([facility])[address] [place] [address] Consent for Treatmenton 11-10 Consent for Treatment [id number]:[id number] Normal [facility] Heart and Vascular Office/Cl inic Noteon 11-22-2022 Heart and Vascular Office/Clinic Note Normal [facility] Comment on above: Result Comment: Elec tronically Signed By: Vickey WISE, Erwin Evans\.br\Date and Time Signed: 11/22/22 12:14 EST 36on 11-17-2022 36 Normal [facility] 30on 11-16-2022 30 The patient is Moder ately Stable - Low risk of patient condition declining or worsening The patient's goals for the shift include Comfort The clinical goals for the shift include Stable vitals, hemodynamics [facility] 30 [facility] 30 [facility] BASIC METABOLIC PANELon Anion gap [Moles/Vol] 4 mmol/L Low 7-20 [facility] Comment on above: Performed By: #### L [id number] ####[facility] ([facility])[address] [place] [address] Calcium [Mass/Vol] 7.8 mg/dL Low 8.6-10.3 [facility] Comment on above: Performed By: #### L [id number] ####[facility] ([facility])[address] [place] [address] Chloride [Moles/Vol] 102 mmol/L Normal 98-107 [facility] Comment on above: Performed By: #### L [id number] ####[facility] ([facility])[address] [place] [address] CO2 [Moles/Vol] 26 mmol/L Normal 21-31 [facility] Comment on above: Performed By: #### L [id number] ####[facility] ([facility])[address] [place] [address] Creatinine [Mass/Vol] 0.55 mg/dL Low 0.70-1.30 [facility] Comment on above: Performed By: #### L [id number] ####[facility] ([facility])[address] [place] [address] GLOMERULAR FILTRATION RATE ML/MIN/1.73 SQ M.PREDICTED 101.9 mL/min/1.73m*2 Normal >60.0 [facility] Comment on above: Result Comment: The [facility]???s estimated glomerular filtration rate (eGFR) will no longer include consideration of race in its calculation. The [employer] Kid[employer] Foundation???s eGFR Task Force developed new recommendations for the estimation of the glomerular filtration rate in the [place] They recommend immediate implementation of the new equation refit without the race variable in all laboratories because the calculation does not include race. In addition to not including race in the calculation and reporting, it included diversity in its development, and has acceptable performance characteristics and potential consequences that do not disproportionately affect any one group of individuals. Performed By: #### L [id number] ####[facility] ([facility])[address] [place] [address] Glucose [Mass/Vol] 127 mg/dL High 70-100 [facility] Comment on above: Performed By: #### L [id number] ####[facility] ([facility])[address] [place] [address] Potassium [Moles/Vol] 3.8 mmol/L Normal 3.5-5.1 [facility] Comment on above: Performed By: #### L [id number] ####[facility] ([facility])[address] [place] [address] Sodium [Moles/Vol] 132 mmol/L Low 136-145 [facility] Comment on above: Performed By: #### L [id number] ####[facility] ([facility])[address] [place] [address] Urea nitrogen [Mass/Vol] 9 mg/dL Normal 7-25 [facility] Comment on above: Performed By: #### L [id number] ####[facility] ([facility])[address] [place] [address] UREA NITROGEN/CREATININE (MASS RATIO) IN SER/PLAS 16.36 Normal [facility] Comment on above: Performed By: #### L [id number] ####[facility] ([facility])[address] [place] [address] CBCon 11-16-2022 Erythrocyte distribution width (RBC) [Ratio] 18.7 % High 11.5-15.0 [facility] Comment on above: Performed By: #### L [id number] ####[facility] ([facility])[address] [place] [address] ERYTHROCYTE MEAN CORPUSCULAR HEMOGLOBIN CONCENTRATION (G/DL) BY AUTOMATED 33.5 g/dL Normal 32.0-35.0 [facility] Comment on above: Performed By: #### L [id number] ####[facility] ([facility])[address] [place] [address] Hematocrit (Bld) [Volume fraction] 24.8 % Low 39.0-55.0 [facility] Comment on above: Performed By: #### L [id number] ####[facility] ([facility])[address] [place] [address] Hemoglobin (Bld) [Mass/Vol] 8.3 g/dL Low 13.0-17.0 [facility] Comment on above: Performed By: #### L [id number] ####[facility] ([facility] [place] [address] IMMATURE PLATELET FRACTION % 6.8 % High 0.8-6.3 [facility] Comment on above: Performed By: #### L [id number] ####[facility] ([facility] [place] [address] MCH (RBC) [Entitic mass] 32.8 pg Normal 27.0-33.0 [facility] Comment on above: Performed By: #### L [id number] ####[facility] ([facility])[address] [place] [address] MCV (RBC) [Entitic vol] 98.0 fL Normal 82.0-98.0 [facility] Comment on above: Performed By: #### L [id number] ####[facility] ([facility])[address] [place] [address] PLATELETS (10*3/UL) IN BLOOD AUTOMATED COUNT 96 10*3/uL Low 150-400 [facility] Comment on above: Performed By: #### L [id number] ####[facility] ([facility])[address] [place] [address] RBC (Bld) [#/Vol] 2.53 10*6/uL Low 4.20-5.70 [facility] Comment on above: Performed By: #### L [id number] ####[facility] ([facility])[address] [place] [address] WBC (Bld) [#/Vol] 4.36 10*3/uL Normal 4.00-10.60 [facility] Comment on above: Performed By: #### L [id number] ####[facility] ([facility])[address] [place] [address] DSon 11-16-2022 DS Normal [facility] HEPARIN LEVELon 11-16-2022 HEPARIN UNFRACTIONATED (U/ML) IN PPP BY CHROMOGENIC METHOD 0.38 IU/mL Normal 0.3-0.7 [facility] Comment on above: Order Comment: Check anti-Xa level every 6 hours while on heparin infusion, or per protocol. Result Comment: Wells roxaban and Apixaban will interfere with the anti Xa assay used to monitor UFH and LMWH. Performed By: #### L [id number] ####[facility] ([facility])[address] [place] [address] HEPARIN UNFRACTIONATED (U/ML) IN PPP BY CHROMOGENIC METHOD 0.25 IU/mL Low 0.3-0.7 [facility] Comment on above: Order Comment: Check anti-Xa level every 6 hours while on heparin infusion, or per protocol. Result Comment: Masha roxaban and Apixaban will interfere with the anti Xa assay used to monitor UFH and LMWH. Performed By: #### L [id number] ####[facility] ([facility])[address] [place] [address] HEPARIN UNFRACTIONATED (U/ML) IN PPP BY CHROMOGENIC METHOD 0.34 IU/mL Normal 0.3-0.7 [facility] Comment on above: Order Comment: Check anti-Xa level every 6 hours while on heparin infusion, or per protocol. Result Comment: Masha roxaban and Apixaban will interfere with the anti Xa assay used to monitor UFH and LMWH. Performed By: #### L [id number] ####[facility] ([facility])[address] [place] [address] NURSNOTEon 11-16-2022 NURSNOTE Pt. Discharged to [facility] with . Discharge instructions reviewed, both patient and spouse verbalize understanding and deny any further questions or concerns. Wound care orders reviewed in detail, with patient and both verbalizing understanding. [facility] NURSNOTE Boles removed at bed side by vascular surgeon Dr. Hurd. [facility] Orders Onlyon 11-16-2022 Orders Only [facility] POCT GLUCOSE METER UNSOLICIT ED RESULTSon 11-16-2022 Glucose [Mass/Vol] 161 mg/dL High 70-105 [facility] Comment on above: Result Comment: [email or web address] [email or web address] Performed By: #### L [id number] ####[facility] ([facility])[address] [place] [address] 30on 11-15-2022 30 Normal [facility] BASIC METABOLIC PANELon Anion gap [Moles/Vol] 0 mmol/L Low 7-[address] [facility] Comment on above: Performed By: #### L [id number] ####[facility] ([facility])[address] [place] [address] Calcium [Mass/Vol] 7.5 mg/dL Low 8.6-10.3 [facility] Comment on above: Performed By: #### L [id number] ####[facility] ([facility])[address] [place] [address] Chloride [Moles/Vol] 104 mmol/L Normal 98-107 [facility] Comment on above: Performed By: #### L [id number] ####[facility] ([facility])[address] [place] [address] CO2 [Moles/Vol] 29 mmol/L Normal 21-31 [facility] Comment on above: Performed By: #### L [id number] ####[facility] ([facility])[address] [place] [address] Creatinine [Mass/Vol] 0.67 mg/dL Low 0.70-1.30 [facility] Comment on above: Performed By: #### L [id number] ####[facility] ([facility])[address] [place] [address] GLOMERULAR FILTRATION RATE ML/MIN/1.73 SQ M.PREDICTED 94.0 mL/min/1.73m*2 Normal >60.0 [facility] Comment on above: Result Comment: The [facility]???s estimated glomerular filtration rate (eGFR) will no longer include consideration of race in its calculation. The National Kidney Foundation???s eGFR Task Force developed new recommendations for the estimation of the glomerular filtration rate in the [place] They recommend immediate implementation of the new equation refit without the race variable in all laboratories because the calculation does not include race. In addition to not including race in the calculation and reporting, it included diversity in its development, and has acceptable performance characteristics and potential consequences that do not disproportionately affect any one group of individuals. Performed By: #### L [id number] ####[facility] ([facility])[address] [place] [address] Glucose [Mass/Vol] 113 mg/dL High 70-100 [facility] Comment on above: Performed By: #### L [id number] ####[facility] ([facility])[address] [place] [address] Potassium [Moles/Vol] 4.0 mmol/L Normal 3.5-5.1 [facility] Comment on above: Performed By: #### L [id number] ####[facility] ([facility])[address] [place] [address] Sodium [Moles/Vol] 133 mmol/L Low 136-145 [facility] Comment on above: Performed By: #### L [id number] ####[facility] ([facility])[address] [place] [address] Urea nitrogen [Mass/Vol] 18 mg/dL Normal 7-25 [facility] Comment on above: Performed By: #### L [id number] ####[facility] ([facility] [place] [address] UREA NITROGEN/CREATININE (MASS RATIO) IN SER/PLAS 26.87 Normal [facility] Comment on above: Performed By: #### L [id number] ####[facility] ([facility])[address] [address] CBCon 11-15-2022 Erythrocyte distribution width (RBC) [Ratio] 19.2 % High 11.5-15.0 [facility] Comment on above: Performed By: #### L [id number] ####[facility] ([facility])[address] [place] [address] ERYTHROCYTE MEAN CORPUSCULAR HEMOGLOBIN CONCENTRATION (G/DL) BY AUTOMATED 33.2 g/dL Normal 32.0-35.0 [facility] Comment on above: Performed By: #### L [id number] ####[facility] ([facility])[address] [place] [address] Hematocrit (Bld) [Volume fraction] 24.7 % Low 39.0-55.0 [facility] Comment on above: Performed By: #### L [id number] ####[facility] ([facility] [place], [place] [address] Hemoglobin (Bld) [Mass/Vol] 8.2 g/dL Low 13.0-17.0 [facility] Comment on above: Performed By: #### L [id number] ####[facility] ([facility])[address] [place], [place] [address] IMMATURE PLATELET FRACTION % 6.8 % High 0.8-6.3 [facility] Comment on above: Performed By: #### L [id number] ####[facility] ([facility])[address] [place] [address] MCH (RBC) [Entitic mass] 31.9 pg Normal 27.0-33.0 [facility] Comment on above: Performed By: #### L [id number] ####[facility] ([facility] [place] [address] MCV (RBC) [Entitic vol] 96.1 fL Normal 82.0-98.0 [facility] Comment on above: Performed By: #### L [id number] ####[facility] ([facility])[address] [place] [address] PLATELETS (10*3/UL) IN BLOOD AUTOMATED COUNT 102 10*3/uL Low 150-400 [facility] Comment on above: Performed By: #### L [id number] ####[facility] ([facility])[address] [place] [address] RBC (Bld) [#/Vol] 2.57 10*6/uL Low 4.20-5.70 [facility] Comment on above: Performed By: #### L [id number] ####[facility] ([facility])[address] [place] [address] WBC (Bld) [#/Vol] 4.81 10*3/uL Normal 4.00-10.60 [facility] Comment on above: Performed By: #### L [id number] ####[facility] ([facility] [place] [address] CONSULTon 11-15-2022 CONSULT Normal [facility] HEMOGLOBIN AND HEMATOCRIT, B LOODon 11-15-2022 Hematocrit (Bld) [Volume fraction] 26.7 % Low 39.0-55.0 [facility] Comment on above: Performed By: #### L [id number] ####[facility] ([facility] [place] [address] Hemoglobin (Bld) [Mass/Vol] 8.9 g/dL Low 13.0-17.0 [facility] Comment on above: Performed By: #### L [id number] ####[facility] ([facility])[address] [place] [address] HEPARIN LEVELon 11-15-2022 HEPARIN UNFRACTIONATED (U/ML) IN PPP BY CHROMOGENIC METHOD 0.46 IU/mL Normal 0.3-0.7 [facility] Comment on above: Order Comment: Check anti-Xa level every 6 hours while on heparin infusion, or per protocol. Result Comment: Wells roxaban and Apixaban will interfere with the anti Xa assay used to monitor UFH and LMWH. Performed By: #### L [id number] ####[facility] ([facility])[address] [place] [address] HEPARIN UNFRACTIONATED (U/ML) IN PPP BY CHROMOGENIC METHOD 0.45 IU/mL Normal 0.3-0.7 [facility] Comment on above: Order Comment: Check anti-Xa level every 6 hours while on heparin infusion, or per protocol. Result Comment: Masha roxaban and Apixaban will interfere with the anti Xa assay used to monitor UFH and LMWH. Performed By: #### L [id number] ####[facility] ([facility])[address] [place] [address] POCT GLUCOSE METER UNSOLICIT ED RESULTSon 11-15-2022 Glucose [Mass/Vol] 201 mg/dL High 70-105 [facility] Comment on above: Result Comment: [email or web address] Performed By: #### L [id number] ####[facility] ([facility])[address] [place] [address] Glucose [Mass/Vol] 103 mg/dL Normal 70-105 [facility] Comment on above: Result Comment: [email or web address] and Performed By: #### L [id number] ####[facility] ([facility])[address] [place] [address] Glucose [Mass/Vol] 219 mg/dL High 70-105 [facility] Comment on above: Result Comment: [email or web address] and Performed By: #### L [id number] ####[facility] ([facility])[address] [place] [address] Glucose [Mass/Vol] 125 mg/dL High 70-105 [facility] Comment on above: Result Comment: [email or web address] and Performed By: #### L [id number] ####[facility] ([facility] [place] [address] 29on 11-14-2022 29 Addendum created 03/01 0655 by Modesto Hu DO Clinical Note Signed, SmartForm saved Normal [facility] 30on 11-14-2022 30 Normal [facility] APTTon 11-14-2022 ACTIVATED PARTIAL THROMBOPLASTIN TIME IN PPP BY COAGULATION ASSAY 48.1 Seconds High 25.0-35.0 [facility] Comment on above: Performed By: #### L [id number] ####[facility] ([facility])[address] [place] [address] BASIC METABOLIC PANELon Anion gap [Moles/Vol] 1 mmol/L Low 7-20 [facility] Comment on above: Performed By: #### L [id number] ####[facility] ([facility])[address] [place] [address] Calcium [Mass/Vol] 7.6 mg/dL Low 8.6-10.3 [facility] Comment on above: Performed By: #### L [id number] ####[facility] ([facility])[address] [place] [address] Chloride [Moles/Vol] 103 mmol/L Normal 98-107 [facility] Comment on above: Performed By: #### L [id number] ####[facility] ([facility])[address] [place] [address] CO2 [Moles/Vol] 28 mmol/L Normal 21-31 [facility] Comment on above: Performed By: #### L [id number] ####[facility] ([facility])[address] [place] [address] Creatinine [Mass/Vol] 0.52 mg/dL Low 0.70-1.30 [facility] Comment on above: Performed By: #### L [id number] ####[facility] ([facility])[address] [place] [address] GLOMERULAR FILTRATION RATE ML/MIN/1.73 SQ M.PREDICTED 104.3 mL/min/1.73m*2 Normal >60.0 [facility] Comment on above: Result Comment: The [facility]???s estimated glomerular filtration rate (eGFR) will no longer include consideration of race in its calculation. The National Kidney Foundation???s eGFR Task Force developed new recommendations for the estimation of the glomerular filtration rate in the [place] They recommend immediate implementation of the new equation refit without the race variable in all laboratories because the calculation does not include race. In addition to not including race in the calculation and reporting, it included diversity in its development, and has acceptable performance characteristics and potential consequences that do not disproportionately affect any one group of individuals. Performed By: #### L [id number] ####[facility] ([facility])[address] [place] [address] Glucose [Mass/Vol] 157 mg/dL High 70-100 [facility] Comment on above: Performed By: #### L [id number] ####[facility] ([facility])[address] [place] [address] Potassium [Moles/Vol] 3.7 mmol/L Normal 3.5-5.1 [facility] Comment on above: Performed By: #### L [id number] ####[facility] ([facility])[address] [place] [address] Sodium [Moles/Vol] 132 mmol/L Low 136-145 [facility] Comment on above: Performed By: #### L [id number] ####[facility] ([facility])[address] [place] [address] Urea nitrogen [Mass/Vol] 15 mg/dL Normal 7-25 [facility] Comment on above: Performed By: #### L [id number] ####[facility] ([facility])[address] [place] [address] UREA NITROGEN/CREATININE (MASS RATIO) IN SER/PLAS 28.85 Normal [facility] Comment on above: Performed By: #### L [id number] ####[facility] ([facility])[address] [place] [address] CBCon 11-14-2022 Erythrocyte distribution width (RBC) [Ratio] 18.7 % High 11.5-15.0 [facility] Comment on above: Performed By: #### L [id number] ####[facility] ([facility])[address] [address] ERYTHROCYTE MEAN CORPUSCULAR HEMOGLOBIN CONCENTRATION (G/DL) BY AUTOMATED 34.3 g/dL Normal 32.0-35.0 [facility] Comment on above: Performed By: #### L [id number] ####[facility] ([facility])[address] [place] [address] Hematocrit (Bld) [Volume fraction] 19.8 % Low 39.0-55.0 [facility] Comment on above: Performed By: #### L [id number] ####[facility] ([facility])[address] [place] [address] Hemoglobin (Bld) [Mass/Vol] 6.8 g/dL Low 13.0-17.0 [facility] Comment on above: Performed By: #### L [id number] ####[facility] ([facility])[address] [place] [address] IMMATURE PLATELET FRACTION % 7.4 % High 0.8-6.3 [facility] Comment on above: Performed By: #### L [id number] ####[facility] ([facility])[address] [place] [address] MCH (RBC) [Entitic mass] 32.9 pg Normal 27.0-33.0 [facility] Comment on above: Performed By: #### L [id number] ####[facility] ([facility] [place] [address] MCV (RBC) [Entitic vol] 95.7 fL Normal 82.0-98.0 [facility] Comment on above: Performed By: #### L [id number] ####[facility] ([facility])[address] [address] PLATELETS (10*3/UL) IN BLOOD AUTOMATED COUNT 83 10*3/uL Low 150-400 [facility] Comment on above: Performed By: #### L [id number] ####[facility] ([facility])[address] [place] [address] RBC (Bld) [#/Vol] 2.07 10*6/uL Low 4.20-5.70 [facility] Comment on above: Performed By: #### L [id number] ####[facility] ([facility])[address] [address] WBC (Bld) [#/Vol] 4.55 10*3/uL Normal 4.00-10.60 [facility] Comment on above: Performed By: #### L [id number] ####[facility] ([facility])[address] [address] CONSULTon 11-14-2022 CONSULT Normal [facility] HEMOGLOBIN AND HEMATOCRIT, B LOODon 11-14-2022 Hematocrit (Bld) [Volume fraction] 28.2 % Low 39.0-55.0 [facility] Comment on above: Performed By: #### L [id number] ####[facility] ([facility])[address] [place] [address] Hemoglobin (Bld) [Mass/Vol] 9.3 g/dL Low 13.0-17.0 [facility] Comment on above: Performed By: #### L [id number] ####[facility] ([facility])[address] [place] [address] Hematocrit (Bld) [Volume fraction] 27.3 % Low 39.0-55.0 [facility] Comment on above: Performed By: #### L [id number] ####[facility] ([facility])[address] [place] [address] Hemoglobin (Bld) [Mass/Vol] 9.3 g/dL Low 13.0-17.0 [facility] Comment on above: Performed By: #### L [id number] ####[facility] ([facility])[address] [place] [address] HEPARIN LEVELon 11-14-2022 HEPARIN UNFRACTIONATED (U/ML) IN PPP BY CHROMOGENIC METHOD 0.86 IU/mL High 0.3-0.7 [facility] Comment on above: Order Comment: Check anti-Xa level every 6 hours while on heparin infusion, or per protocol. Result Comment: Wells roxaban and Apixaban will interfere with the anti Xa assay used to monitor UFH and LMWH. Performed By: #### L [id number] ####[facility] ([facility])[address] [place] [address] HEPARIN UNFRACTIONATED (U/ML) IN PPP BY CHROMOGENIC METHOD >1.00 Critically high 0.3-0.7 [facility] Comment on above: Order Comment: Check anti-Xa level every 6 hours while on heparin infusion, or per protocol. Result Comment: Wells roxaban and Apixaban will interfere with the anti Xa assay used to monitor UFH and LMWH. Performed By: #### L [id number] ####[facility] ([facility])[address] [place] [address] POCT GLUCOSE METER UNSOLICIT ED RESULTSon 11-14-2022 Glucose [Mass/Vol] 194 mg/dL High 70-105 [facility] Comment on above: Result Comment: [email or web address] [email or web address] Performed By: #### L [id number] ####[facility] ([facility])[address] [place] [address] Glucose [Mass/Vol] 148 mg/dL High 70-105 [facility] Comment on above: Result Comment: chan [email or web address] Performed By: #### L [id number] ####[facility] ([facility])[address] [place] [place] [address] Glucose [Mass/Vol] 124 mg/dL High 70-105 [facility] Comment on above: Result Comment: chan nguyen Performed By: #### L [id number] ####[facility] ([facility])[address] [place] [address] Glucose [Mass/Vol] 139 mg/dL High 70-105 [facility] Comment on above: Result Comment: [email or web address] [email or web address] Performed By: #### L [id number] ####[facility] ([facility])[address] [place] [address] ANESon 11-13-2022 ANES Normal [facility] ANES Normal [facility] APTTon 11-13-2022 ACTIVATED PARTIAL THROMBOPLASTIN TIME IN PPP BY COAGULATION ASSAY 37.1 Seconds High 25.0-35.0 [facility] Comment on above: Performed By: #### L [id number] ####[facility] ([facility])[address] [place] [address] ARTERIAL BLOOD GAS WITH CO-O XIMETRYon 11-13-2022 Base excess Calc (Bld) [Moles/Vol] -1.6000 mmol/L Normal -2.0-3.0 [facility] Comment on above: Performed By: #### L [id number] ####[facility] [id number] [place] [address] [facility] CARBOXYHEMOGLOBIN/HEMO GLOBIN TOTAL % IN BLOOD 3.3 % High 0.0-3.0 [facility] Comment on above: Performed By: #### L [id number] ####[facility] [id number] [place] [address] [facility] CO2 (Bld) [Partial pressure] 36 mm[Hg] Normal 35-48 [facility] Comment on above: Performed By: #### L [id number] ####[facility] [id number] [place] [address] [place] DEOXYGENATED HEMOGLOBIN IN BLOOD 0.0 % Low 1-5 [facility] Comment on above: Performed By: #### L [id number] ####[facility] [id number] [place] [address] [place] HCO3 (Bld) [Moles/Vol] 22.8 mmol/L Normal 21.0-28.0 [facility] Comment on above: Performed By: #### L [id number] ####[facility] [id number] [place] [address] Hemoglobin (Bld) [Mass/Vol] 8.9 g/dL Low 11.7-17.4 [facility] Comment on above: Performed By: #### L [id number] ####[facility] [id number] [place] [address] [facility] METHEMOGLOBIN/100 IN BLOOD 1.1 % Normal 0.0-1.5 [facility] Comment on above: Performed By: #### L [id number] ####[facility] [id number] [place] [id number] [facility] Oxygen (Bld) [Partial pressure] 184 mm[Hg] High 83-100 [facility] Comment on above: Performed By: #### L [id number] ####[facility] [id number] [place], [place] [address] OXYGEN SATURATION (%) IN ARTERIAL BLOOD 100.0 % High 94.0-98.0 [facility] Comment on above: Performed By: #### L [id number] ####[facility] [facility] [id number] [place] [address] [facility] OXYGENATED HEMOGLOBIN IN BLOOD 95.6 % High 90.0-95.0 [facility] Comment on above: Performed By: #### L [id number] ####[facility] [id number] [place] [address] [facility] pH (Bld) 7.41 [pH] Normal 7.35-7.45 [facility] Comment on above: Performed By: #### L [id number] ####[facility] [id number] [place] [address] [facility] SOURCE OF OXYGEN Vent Normal [facility] Comment on above: Performed By: #### L [id number] ####[facility] [id number] [place] [address] [facility] Anesthesiaon 11-13-2022 Anesthesia Normal [facility] BASIC METABOLIC PANELon 02-0 Anion gap [Moles/Vol] 6 mmol/L Low 7-20 [facility] Comment on above: Performed By: #### L [id number] ####[facility] ([facility])[address] [place] [address] Calcium [Mass/Vol] 7.7 mg/dL Low 8.6-10.3 [facility] Comment on above: Performed By: #### L [id number] ####[facility] ([facility])[address] [place] [address] Chloride [Moles/Vol] 102 mmol/L Normal 98-107 [facility] Comment on above: Performed By: #### L [id number] ####[facility] ([facility])[address] [place] [address] CO2 [Moles/Vol] 24 mmol/L Normal 21-31 [facility] Comment on above: Performed By: #### L [id number] ####[facility] ([facility])[address] [place] [address] Creatinine [Mass/Vol] 0.56 mg/dL Low 0.70-1.30 [facility] Comment on above: Performed By: #### L [id number] ####[facility] ([facility])[address] [place] [address] GLOMERULAR FILTRATION RATE ML/MIN/1.73 SQ M.PREDICTED 101.2 mL/min/1.73m*2 Normal >60.0 [facility] Comment on above: Result Comment: The [facility]???s estimated glomerular filtration rate (eGFR) will no longer include consideration of race in its calculation. The National Kidney Foundation???s eGFR Task Force developed new recommendations for the estimation of the glomerular filtration rate in the [place] They recommend immediate implementation of the new equation refit without the race variable in all laboratories because the calculation does not include race. In addition to not including race in the calculation and reporting, it included diversity in its development, and has acceptable performance characteristics and potential consequences that do not disproportionately affect any one group of individuals. Performed By: #### L [id number] ####[facility] ([facility])[address] [place] [address] Glucose [Mass/Vol] 181 mg/dL High 70-100 [facility] Comment on above: Performed By: #### L [id number] ####[facility] ([facility])[address] [place] [address] Potassium [Moles/Vol] 4.0 mmol/L Normal 3.5-5.1 [facility] Comment on above: Performed By: #### L [id number] ####[facility] ([facility])[address] [place] [address] Sodium [Moles/Vol] 132 mmol/L Low 136-145 [facility] Comment on above: Performed By: #### L [id number] ####[facility] ([facility])[address] [place] [address] Urea nitrogen [Mass/Vol] 11 mg/dL Normal 7-25 [facility] Comment on above: Performed By: #### L [id number] ####[facility] ([facility])[address] [place] [address] UREA NITROGEN/CREATININE (MASS RATIO) IN SER/PLAS 19.64 Normal [facility] Comment on above: Performed By: #### L [id number] ####[facility] ([facility])[address] [place] [address] Anion gap [Moles/Vol] 5 mmol/L Low 7-20 [facility] Comment on above: Performed By: #### L [id number] ####[facility] ([facility])[address] [place] [address] Calcium [Mass/Vol] 8.6 mg/dL Normal 8.6-10.3 [facility] Comment on above: Performed By: #### L [id number] ####[facility] ([facility])[address] [place] [address] Chloride [Moles/Vol] 99 mmol/L Normal 98-107 [facility] Comment on above: Performed By: #### L [id number] ####[facility] ([facility] [place] [address] CO2 [Moles/Vol] 27 mmol/L Normal 21-31 [facility] Comment on above: Performed By: #### L [id number] ####[facility] ([facility] [place] [address] Creatinine [Mass/Vol] 0.63 mg/dL Low 0.70-1.30 [facility] Comment on above: Performed By: #### L [id number] ####[facility] ([facility])[address] [place] [address] GLOMERULAR FILTRATION RATE ML/MIN/1.73 SQ M.PREDICTED 96.4 mL/min/1.73m*2 Normal >60.0 [facility] Comment on above: Result Comment: The [facility]???s estimated glomerular filtration rate (eGFR) will no longer include consideration of race in its calculation. The National Kidney Foundation???s eGFR Task Force developed new recommendations for the estimation of the glomerular filtration rate in the [place] They recommend immediate implementation of the new equation refit without the race variable in all laboratories because the calculation does not include race. In addition to not including race in the calculation and reporting, it included diversity in its development, and has acceptable performance characteristics and potential consequences that do not disproportionately affect any one group of individuals. Performed By: #### L [id number] ####[facility] ([facility] [place] [address] Glucose [Mass/Vol] 119 mg/dL High 70-100 [facility] Comment on above: Performed By: #### L [id number] ####[facility] ([facility] [place] [address] Potassium [Moles/Vol] 4.0 mmol/L Normal 3.5-5.1 [facility] Comment on above: Performed By: #### L [id number] ####[facility] ([facility] [place] [address] Sodium [Moles/Vol] 131 mmol/L Low 136-145 [facility] Comment on above: Performed By: #### L [id number] ####[facility] ([facility])[address] [place] [address] Urea nitrogen [Mass/Vol] 12 mg/dL Normal 7-25 [facility] Comment on above: Performed By: #### L [id number] ####[facility] ([facility])[address] [place] [address] UREA NITROGEN/CREATININE (MASS RATIO) IN SER/PLAS 19.05 Normal [facility] Comment on above: Performed By: #### L [id number] ####[facility] ([facility])[address] [place] [address] CALCIUM, IONIZEDon 3 CALCIUM IONIZED (MMOL/L) IN BLOOD 1.14 mmol/L Low 1.15-1.33 [facility] Comment on above: Performed By: #### C ALCIUM, IONIZED ####[facility]PIR[facility] [id number] [place] [address] [place] CARDIAC MARCO A ADMITon 023 CK [Catalytic activity/Vol] 109 U/L Normal 39-308 [facility] Comment on above: Performed By: #### C ROSALINA CMP #### [facility] [address] [address] [address] Joselyn Coffey CK.MB [Mass/Vol] 0.94 ng/mL Normal <=3.60 [facility] Comment on above: Performed By: #### C ROSALINA, CMP #### [facility] [address] [address] [address] Joselyn Coffey HSTROP 8.1 pg/mL Normal 4.0-76.1 [facility] Comment on above: Result Comment: CUT- OFF POINTS HAVE BEEN ESTABLISHED BASED ON THE FOURTH UNIVERSAL DEFINITIONS OF MYOCARDIAL INFARCTION. THE UPPER REFERENCE LIMIT (URL) OF TROPONIN, DEFINED THE 99TH PERCENTILE OF cTnI DISTRIBUTION IN A REFERENCE POPULATION, HAS BEEN CONFIRMED THE DECISION THRESHOLD FOR [place] DIAGNOSIS. Performed By: #### C ROSALINA, CMP #### [facility] [address] [address] [address] Joselyn Coffey CHULA 144 ng/mL Critically high 16-96 [facility] Comment on above: Performed By: #### C CARLYNM, [facility] #### [facility] [address] [address] [address] Joselyn Coffey CBCon 11-13-2022 Erythrocyte distribution width (RBC) [Ratio] 18.5 % High 11.5-15.0 [facility] Comment on above: Performed By: #### L [id number] ####[facility] ([facility])[address] [place] [address] ERYTHROCYTE MEAN CORPUSCULAR HEMOGLOBIN CONCENTRATION (G/DL) BY AUTOMATED 34.6 g/dL Normal 32.0-35.0 [facility] Comment on above: Performed By: #### L [id number] ####[facility] ([facility])[address] [place] [address] Hematocrit (Bld) [Volume fraction] 26.6 % Low 39.0-55.0 [facility] Comment on above: Performed By: #### L [id number] ####[facility] ([facility])[address] [place] [address] Hemoglobin (Bld) [Mass/Vol] 9.2 g/dL Low 13.0-17.0 [facility] Comment on above: Performed By: #### L [id number] ####[facility] ([facility])[address] [place] [address] IMMATURE PLATELET FRACTION % 6.2 % Normal 0.8-6.3 [facility] Comment on above: Performed By: #### L [id number] ####[facility] ([facility])[address] [place] [address] MCH (RBC) [Entitic mass] 32.9 pg Normal 27.0-33.0 [facility] Comment on above: Performed By: #### L [id number] ####[facility] ([facility])[address] [place] [address] MCV (RBC) [Entitic vol] 95.0 fL Normal 82.0-98.0 [facility] Comment on above: Performed By: #### L [id number] ####[facility] ([facility])[address] [address] PLATELETS (10*3/UL) IN BLOOD AUTOMATED COUNT 105 10*3/uL Low 150-400 [facility] Comment on above: Performed By: #### L [id number] ####[facility] ([facility])[address] [place] [address] RBC (Bld) [#/Vol] 2.80 10*6/uL Low 4.20-5.70 [facility] Comment on above: Performed By: #### L [id number] ####[facility] ([facility])[address] [place] [address] WBC (Bld) [#/Vol] 7.47 10*3/uL Normal 4.00-10.60 [facility] Comment on above: Performed By: #### L [id number] ####[facility] ([facility])[address] [place] [address] CBC AUTO DIFFon 11-13-2022 BASO # 0.0 103/ul Normal 0.0-0.1 [facility] Comment on above: Performed By: #### Sammy PROCTOR #### [facility] [address] [place] [address] Dr. Joselyn Coffey Basophils/100 WBC (Bld) 0.3 % Normal 0.2-2.0 [facility] Comment on above: Performed By: #### C ESTHELA #### [facility] [address] [address] [address] Joselyn Coffey EO # 0.0 103/ul Normal 0.0-0.7 [facility] Comment on above: Performed By: #### C ESTHELA #### [facility] [address] [place] [address] Dr. Joselyn Coffey Eosinophils/100 WBC (Bld) 0.3 % Critically low 0.9-7.0 [facility] Comment on above: Performed By: #### C BCDEV #### [facility] [address] [place] [address] Dr. Joselyn Coffey Erythrocyte distribution width (RBC) [Ratio] 18.7 % Critically high 11.0-15.0 [facility] Comment on above: Performed By: #### C BCDEV #### [facility] [address] [place] [address] Dr. Joselyn Coffey Hematocrit (Bld) [Volume fraction] 25.4 % Critically low 42.0-54.0 [facility] Comment on above: Performed By: #### C ESTHELA #### [facility] [address] [place] [address] Dr. Joselyn Coffey Hemoglobin (Bld) [Mass/Vol] 8.2 g/dL Critically low 14.0-18.0 [facility] Comment on above: Performed By: #### C ESTHELA #### [facility] [address] [place] [address] Dr. Joselyn Coffey IG # 0.04 10e3/ul Critically high 0.00-0.03 [facility] Comment on above: Performed By: #### C ESTHELA #### [facility] [address] [place] [address] Dr. Joselyn Coffey IG % 0.7 % Critically high 0.0-0.5 [facility] Comment on above: Performed By: #### C ESTHELA #### [facility] [address] [place] [address] Dr. Joselyn Coffey LYMPH # 0.4 103/ul Critically low 1.2-3.8 [facility] Comment on above: Performed By: #### C BCDEV #### [facility] [address] [place] [address] Dr. Joselyn Coffey Lymphocytes/100 WBC (Bld) 7.2 % Critically low 20.5-60.0 [facility] Comment on above: Performed By: #### C ESTHELA #### [facility] [address] [place] [address] Dr. Joselyn Coffey MANUAL DIFF REQ NO Normal [facility] Comment on above: Performed By: #### C ESTHELA #### [facility] [address] [address] [address] Joselyn Coffey MCH (RBC) [Entitic mass] 32.8 pg Normal 25.9-34.0 [facility] Comment on above: Performed By: #### C BCDEV #### [facility] [address] [place] [address] Dr. Joselyn Coffey MCHC (RBC) [Mass/Vol] 32.3 g/dL Normal 29.9-35.2 [facility] Comment on above: Performed By: #### C ESTHELA #### [facility] [address] [place] [address] Dr. Joselyn Coffey MCV (RBC) [Entitic vol] 101.6 fL Critically high 80.0-94.0 [facility] Comment on above: Performed By: #### C ESTHELA #### [facility] [address] [place] [address] Dr. Joselyn Coffey MONO # 0.7 103/ul Normal 0.3-0.8 [facility] Comment on above: Performed By: #### C ESTHELA #### [facility] [address] [place] [address] Dr. Joselyn Coffey Monocytes/100 WBC (Bld) 11.9 % Normal 1.7-12.0 [facility] Comment on above: Performed By: #### C ESTHELA #### [facility] [address] [place] [address] Dr. Joselyn Coffey NEUT # 4.7 103/ul Normal 1.4-6.5 [facility] Comment on above: Performed By: #### C ESTHELA #### [facility] [address] [place] [address] Dr. Joselyn Coffey Neutrophils/100 WBC (Bld) 79.6 % Critically high 43.0-75.0 [facility] Comment on above: Performed By: #### C ESTHELA #### [facility] [address] [place] [address] Dr. Joselyn Coffey Platelet mean volume (Bld) [Entitic vol] 10.8 fL Normal 9.5-13.5 [facility] Comment on above: Performed By: #### C ESTHELA #### [facility] [address] [place], [place] [address] Dr. Joselyn Coffey PLT 108 103/ul Critically low 150-450 [facility] Comment on above: Performed By: #### Sammy PROCTOR #### [facility] [address] [place], [place] [address] Dr. Joselyn Coffey RBC 2.50 106/ul Critically low 4.70-6.10 [facility] Comment on above: Performed By: #### Sammy PROCTOR #### [facility] [address] [address] [address] Joselyn Coffey WBC 6.0 103/ul Normal 4.0-11.0 [facility] Comment on above: Performed By: #### Sammy PROCTOR #### [facility] [address] [place] [address] Dr. Joselyn Coffey CBC WITH AUTO DIFFERENTIALon 11-13-2022 Basophils (Bld) [#/Vol] 0.02 10*3/uL Normal 0.00-0.20 [facility] Comment on above: Performed By: #### L [id number] ####[facility] ([facility])[address] [place] [address] Basophils/100 WBC (Bld) 0.3 % Normal 0.0-1.0 [facility] Comment on above: Performed By: #### L [id number] ####[facility] ([facility] [place] [address] Eosinophils (Bld) [#/Vol] 0.03 10*3/uL Normal 0.00-0.50 [facility] Comment on above: Performed By: #### L [id number] ####[facility] ([facility])[address] [place] [address] Eosinophils/100 WBC (Bld) 0.4 % Normal 0.0-6.0 [facility] Comment on above: Performed By: #### L [id number] ####[facility] ([facility])[address] [place] [address] Erythrocyte distribution width (RBC) [Ratio] 19.0 % High 11.5-15.0 [facility] Comment on above: Performed By: #### L [id number] ####[facility] ([facility])[address] [place] [place] [address] ERYTHROCYTE MEAN CORPUSCULAR HEMOGLOBIN CONCENTRATION (G/DL) BY AUTOMATED 34.4 g/dL Normal 32.0-35.0 [facility] Comment on above: Performed By: #### L [id number] ####[facility] ([facility])[address] [place] [address] Hematocrit (Bld) [Volume fraction] 27.0 % Low 39.0-55.0 [facility] Comment on above: Performed By: #### L [id number] ####[facility] ([facility])[address] [place] [address] Hemoglobin (Bld) [Mass/Vol] 9.3 g/dL Low 13.0-17.0 [facility] Comment on above: Performed By: #### L [id number] ####[facility] ([facility])[address] [place] [address] Immature granulocytes (Bld) [#/Vol] 0.05 10*3/uL Normal 0.00-0.20 [facility] Comment on above: Performed By: #### L [id number] ####[facility] ([facility])[address] [place] [address] Immature granulocytes/100 WBC (Bld) 0.7 % Normal 0.0-1.0 [facility] Comment on above: Performed By: #### L [id number] ####[facility] ([facility])[address] [place] [address] IMMATURE PLATELET FRACTION % 7.2 % High 0.8-6.3 [facility] Comment on above: Performed By: #### L [id number] ####[facility] ([facility])[address] [place] [address] Lymphocytes (Bld) [#/Vol] 0.63 10*3/uL Low 1.20-4.00 [facility] Comment on above: Performed By: #### L [id number] ####[facility] [place] [address] Lymphocytes/100 WBC (Bld) 8.4 % Low 20.0-45.0 [facility] Comment on above: Performed By: #### L [id number] ####[facility] ([facility] [place] [address] MCH (RBC) [Entitic mass] 33.2 pg High 27.0-33.0 [facility] Comment on above: Performed By: #### L [id number] ####[facility] ([facility])[address] [place] [address] MCV (RBC) [Entitic vol] 96.4 fL Normal 82.0-98.0 [facility] Comment on above: Performed By: #### L [id number] ####[facility] [place] [address] Monocytes (Bld) [#/Vol] 0.76 10*3/uL Normal 0.10-1.00 [facility] Comment on above: Performed By: #### L [id number] ####[facility] [place] [address] Monocytes/100 WBC (Bld) 10.1 % Normal 5.0-12.0 [facility] Comment on above: Performed By: #### L [id number] ####[facility] ([facility])[address] [place] [address] Neutrophils (Bld) [#/Vol] 6.04 10*3/uL Normal 1.60-7.60 [facility] Comment on above: Performed By: #### L [id number] ####[facility] ([facility])[address] [place] [address] Neutrophils/100 WBC (Bld) 80.1 % High 40.0-72.0 [facility] Comment on above: Performed By: #### L [id number] ####[facility] ([facility])[address] [place] [address] NRBC (PER 100 WBCS) BY AUTOMATED COUNT 0.0 % Normal 0.0-0.0 [facility] Comment on above: Performed By: #### L [id number] ####[facility] ([facility])[address] [place] [address] PLATELETS (10*3/UL) IN BLOOD AUTOMATED COUNT 146 10*3/uL Low 150-400 [facility] Comment on above: Performed By: #### L [id number] ####[facility] ([facility])[address] [place] [address] RBC (Bld) [#/Vol] 2.80 10*6/uL Low 4.20-5.70 [facility] Comment on above: Performed By: #### L [id number] ####[facility] ([facility])[address] [place] [address] WBC (Bld) [#/Vol] 7.53 10*3/uL Normal 4.00-10.60 [facility] Comment on above: Performed By: #### L [id number] ####[facility] ([facility])[address] [place] [address] CKon 11-13-2022 CREATINE KINASE (U/L) IN SER/PLAS 104.0 U/L Normal 30.0-223.0 [facility] Comment on above: Performed By: #### L [id number] ####[facility] ([facility])[address] [place] [address] CT AORTA AND BILATERAL ILIOF EMORAL RUNOFF ANGIOGRAM W AND/OR WO IV CONTRASTon 11-13-2022 CT AORTA AND BILATERAL ILIOFEMORAL RUNOFF ANGIOGRAM W AND/OR WO IV CONTRAST Normal [facility] CT CHEST ANGIOGRAM W AND/OR WO IV CONTRASTon 11-13-2022 CT CHEST ANGIOGRAM W AND/OR WO IV CONTRAST Normal [facility] Covid-19 PCR (CVDTBH)on SARS-CoV-2 (COVID-19) RNA HAIM+probe Ql (Unsp spec) Not detected Normal NOT DETECTED [facility] Comment on above: Result Comment: When diagnostic testing is negative, the possibility of a false negative should be considered in the context of a patient's recent exposures and the presence of clinical signs and symptoms consistent with SARS-CoV-2. This test is not yet approved or cleared by the [place] FDA. When there are no FDA-approved or cleared tests available, and other criteria are met, FDA can make tests available under an emergency access mechanism called an Emergency Use Authorization (EUA). The EUA for this test is supported by the Agricultural Extension Specialist of Health and Human Service's declaration that circumstances exist to justify the emergency use of in vitro diagnostics for the detection and/or diagnosis of the virus that causes COVID-19. This EUA will remain in effect for the duration of the COVID-19 declaration justifying emergency of IVDs, unless it is terminated or revoked by the FDA (after which the test may no longer be used). Performed By: #### P TT, PT #### [facility] [address] [place] [address] Dr. Joselyn Coffey DIGOXIN LEVELon 11-13-2022 DIGOXIN (NG/ML) IN SER/PLAS 0.7 ng/mL Normal 0.7-2 [facility] Comment on above: Performed By: #### L [id number] ####[facility] ([facility])[address] [place] [address] EDNURSon 11-13-2022 EDNURS Normal [facility] EDPROVon 11-13-2022 EDPROV Normal [facility] ER URINE PROFILEon 3 Bilirubin Ql (U) Negative Normal NEGATIVE [facility] Comment on above: Performed By: #### P TT, PT #### [facility] [address] [place] [address] Dr. Joselyn Coffey Clarity (U) CLEAR Normal CLEAR [facility] Comment on above: Performed By: #### P TT, PT #### [facility] [address] [place] [address] Dr. Joselyn Coffey Color (U) ORANGE Abnormal YELLOW [facility] Comment on above: Performed By: #### P TT, PT #### [facility] [address] [place] [address] Dr. Joselyn RIVERA A micrscopic examina tion will be performed if indicated. Normal [facility] Comment on above: Performed By: #### P TT, PT #### [facility] [address] [place] [address] Dr. Joselyn Coffey Glucose Ql (U) 100 mg/dl Abnormal NEGATIVE [facility] Comment on above: Performed By: #### P TT, PT #### [facility] [address] [place] [address] Dr. Joselyn Coffey Hemoglobin Ql (U) Negative Normal NEGATIVE [facility] Comment on above: Performed By: #### P TT, PT #### [facility] [address] [place] [address] Dr. Joselyn Coffey Ketones Ql (U) Negative Normal NEGATIVE [facility] Comment on above: Performed By: #### P TT, PT #### [facility] [address] [place] [address] Dr. Joselyn Coffey LEUKOCYTES Negative Normal NEGATIVE [facility] Comment on above: Performed By: #### P TT, PT #### [facility] [address] [place] [address] Dr. Joselyn Coffey Nitrite Ql (U) Negative Normal NEGATIVE [facility] Comment on above: Performed By: #### P TT, PT #### [facility] [address] [place] [address] Dr. Joselyn Coffey pH (U) 6.0 [pH] Normal 5-9 [facility] Comment on above: Performed By: #### P TT, PT #### [facility] [address] [place] [address] Dr. Joselyn Coffey SPEC GRAVITY 1.015 Normal 1.005-<=1.0 25 [facility] Comment on above: Performed By: #### P TT, PT #### [facility] [address] [place] [address] Dr. Joselyn Coffey UA PROTEIN TRACE Normal NEGATIVE/ TRACE [facility] Comment on above: Performed By: #### P TT, PT #### [facility] [address] [place] [address] Dr. Joselyn Coffey UR MICRO IND NOT INDICATED Normal [facility] Comment on above: Performed By: #### P TT, PT #### [facility] [address] [address] [address] Joselyn Coffey Urobilinogen Qn (U) 8 {Mercedes'U}/dL Abnormal 0.2 - 1.0 [facility] Comment on above: Performed By: #### P TT, PT #### [facility] [address] [place] [address] Dr. Joselyn Coffey HPon 11-13-2022 HP Normal [facility] LACTIC ACID, PLASMAon 2022 LACTATE (MMOL/L) IN SER/PLAS 1.3 mmol/L Normal 0.5-2.2 [facility] Comment on above: Performed By: #### L [id number] ####[facility] ([facility])[address] [place] [address] MAGNESIUMon 11-13-2022 Magnesium [Mass/Vol] 1.7 mg/dL Low 1.9-2.7 [facility] Comment on above: Performed By: #### L [id number] ####[facility] ([facility])[address] [place] [address] NURSNOTEon 11-13-2022 NURSNOTE ACT RESULTS 1622- 320 1710- 157 Normal [facility] OPNOTEon 11-13-2022 OPNOTE Normal [facility] PHOSPHORUSon 11-13-2022 Magnesium [Mass/Vol] 2.8 mg/dL Normal 2.5-5.0 [facility] Comment on above: Performed By: #### L [id number] ####[facility] ([facility])[address] [place] [address] POCT ACTIVATED CLOTTING TIME UNSOLICITED RESULTSon 11-13-2022 POC ACTIVATED CLOTTING TIME 157 sec High 82-152 [facility] Comment on above: Performed By: #### L [id number] ####[facility] ([facility])[address] [place] [address] POC ACTIVATED CLOTTING TIME 320 sec High 82-152 [facility] Comment on above: Performed By: #### L [id number] ####[facility] ([facility])[address] [place] [address] POCT GLUCOSE METER UNSOLICIT ED RESULTSon 11-13-2022 Glucose [Mass/Vol] 174 mg/dL High 70-105 [facility] Comment on above: Result Comment: [email or web address] Performed By: #### L [id number] ####[facility] ([facility])[address] [place] [address] Glucose [Mass/Vol] 188 mg/dL High 70-105 [facility] Comment on above: Result Comment: [email or web address] Performed By: #### L [id number] ####[facility] ([facility])[address] [place] [address] Glucose [Mass/Vol] 188 mg/dL High 70-105 [facility] Comment on above: Result Comment: [email or web address] Performed By: #### L [id number] ####[facility] ([facility])[address] [place] [address] POCT PERFUSION PANEL UNSOLIC ITED RESULTSon 11-13-2022 CO2 [Moles/Vol] 26.0 mmol/L Normal 21.0-29.0 [facility] Comment on above: Performed By: #### L [id number] ####[facility] ([facility])[address] [place] [address] Glucose [Mass/Vol] 148 mg/dL High 70-105 [facility] Comment on above: Performed By: #### L [id number] ####[facility] ([facility] [place] [address] HCO3 (Bld) [Moles/Vol] 25.3 mmol/L Normal 23.0-28.0 [facility] Comment on above: Performed By: #### L [id number] ####[facility] ([facility] [address] Hematocrit (Bld) [Volume fraction] 21 % Low 38-51 [facility] Comment on above: Performed By: #### L [id number] ####[facility] ([facility])[address] [address] Hemoglobin (Bld) [Mass/Vol] 7.1 g/dL Low 12.0-17.0 [facility] Comment on above: Performed By: #### L [id number] ####[facility] ([facility])[address] [address] POCT BASE EXCESS 1.0 mmol/L Normal -2.0-3.0 [facility] Comment on above: Performed By: #### L [id number] ####[facility] ([facility])[address] [address] POCT IONIZED CALCIUM 1.17 mmol/L Normal 1.12-1.32 [facility] Comment on above: Performed By: #### L [id number] ####[facility] ([facility])[address] [address] POCT PCO2 38.4 mmHg Low 41.0-51.0 [facility] Comment on above: Performed By: #### L [id number] ####[facility] ([facility])[address] [address] POCT PH 7.43 High 7.31-7.41 [facility] Comment on above: Performed By: #### L [id number] ####[facility] ([facility] [address] POCT PO2 207 mmHg High 80-105 [facility] Comment on above: Performed By: #### L [id number] ####[facility] ([facility] [address] POCT SO2 100 % High 95-98 [facility] Comment on above: Performed By: #### L [id number] ####[facility] ([facility])[address] [place] [address] Potassium [Moles/Vol] 4.0 mmol/L Normal 3.5-4.9 [facility] Comment on above: Performed By: #### L [id number] ####[facility] ([facility])[address] [place] [address] Sodium [Moles/Vol] 134 mmol/L Low 138.0-146.0 [facility] Comment on above: Performed By: #### L [id number] ####[facility] ([facility])[address] [place] [address] POTASSIUM, WHOLE BLOODon Potassium [Moles/Vol] 3.7 mmol/L Normal 3.5-5.1 [facility] Comment on above: Performed By: #### P OTASSIUM, WHOLE BLOOD ####[facility] RESP[facility] [id number] [place] [address] [place] PROF 14(COMP METB)on 023 Albumin [Mass/Vol] 2.6 g/dL Critically low 3.4-5.0 [facility] Comment on above: Performed By: #### C ROSALINA, CMP #### [facility] [address] [address] [address] Joselyn Coffey Albumin/Globulin [Mass ratio] 0.7 {ratio} Normal [facility] Comment on above: Performed By: #### C ROSALINA, CMP #### [facility] [address] [address] [address] Joselyn Coffey ALP [Catalytic activity/Vol] 115 U/L Normal 46-116 [facility] Comment on above: Performed By: #### C ROSALINA, CMP #### [facility] [address] [address] [address] Joselyn Coffey ALT [Catalytic activity/Vol] 44 U/L Normal 16-63 [facility] Comment on above: Performed By: #### C MADM, CMP #### [facility] [address] [address] [address] Joselyn Coffey Anion gap [Moles/Vol] 9.6 mmol/L Normal [facility] Comment on above: Performed By: #### C MADM, CMP #### [facility] [address] [address] [address] Joselyn Coffey AST [Catalytic activity/Vol] 52 U/L Critically high 15-37 [facility] Comment on above: Performed By: #### C MADM, CMP #### [facility] [address] [address] [address] Joselyn Coffey Bilirubin [Mass/Vol] 2.6 mg/dL Critically high 0.2-1.0 [facility] Comment on above: Performed By: #### C MADM, CMP #### [facility] [address] [place] [address] Dr. Joselyn Coffey Calcium [Mass/Vol] 8.3 mg/dL Critically low 8.5-10.1 [facility] Comment on above: Performed By: #### C CARLYNM, CMP #### [facility] [address] [address] [address] oJselyn Coffey Chloride [Moles/Vol] 99 mmol/L Normal 98-107 [facility] Comment on above: Performed By: #### C CARLYNM, CMP #### [facility] [address] [address] [address] Joselyn Coffey CO2 [Moles/Vol] 26.6 mmol/L Normal 21.0-32.0 [facility] Comment on above: Performed By: #### C CARLYNM, CMP #### [facility] [address] [place] [address] Dr. Joselyn Coffey Creatinine [Mass/Vol] 0.77 mg/dL Normal 0.70-1.30 [facility] Comment on above: Performed By: #### C MADM, CMP #### [facility] [address] [place] [address] Dr. Joselyn Coffey EGFR-AF UGANDAN >60 Normal >=60 [facility] Comment on above: Performed By: #### C MADM, CMP #### [facility] [address] [address] [address] Joselyn Coffey EGFR-NON AF UGANDAN >60 Normal >=60 [facility] Comment on above: Performed By: #### C MADM, CMP #### [facility] [address] [address] [address] Joselyn Coffey Globulin (S) [Mass/Vol] 3.5 g/dL Normal [facility] Comment on above: Performed By: #### C MADM, CMP #### [facility] [address] [address] [address] Joselyn Coffey Glucose [Mass/Vol] 123 mg/dL Critically high 74-106 [facility] Comment on above: Performed By: #### C MADM, CMP #### [facility] [address] [place] [address] Dr. Joselyn Coffey Potassium [Moles/Vol] 4.2 mmol/L Normal 3.5-5.1 [facility] Comment on above: Performed By: #### C MADM, CMP #### [facility] [address] [address] [address] Joselyn Coffey Protein [Mass/Vol] 6.1 g/dL Critically low 6.4-8.2 [facility] Comment on above: Performed By: #### C MADM, CMP #### [facility] [address] [place] [address] Dr. Joselyn Coffey Sodium [Moles/Vol] 131 mmol/L Critically low 136-145 [facility] Comment on above: Performed By: #### C MADM, CMP #### [facility] [address] [address] [address] Joselyn Coffey Urea nitrogen [Mass/Vol] 11.0 mg/dL Normal 7.0-18.0 [facility] Comment on above: Performed By: #### C MADM, CMP #### [facility] [address] [address] [address] Joselyn Coffey Urea nitrogen/Creatinine [Mass ratio] 14.3 mg/mg Normal [facility] Comment on above: Performed By: #### C ROSALINA, CMP #### [facility] [address] [address] [address] Joselyn Coffey PROTIME-INRon 11-13-2022 INR IN PPP BY COAGULATION ASSAY 1.73 High 0.90-1.10 [facility] Comment on above: Result Comment: ACCC P RECOMMENDED INR FOR WARFARIN THERAPY CONDITION INRPROPHYLAXIS OF VENOUS THROMBOSIS 2-3(HIGH-RISK SURGERY)TREATMENT OF VENOUS THROMBOSIS 2-3TREATMENT OF PULMONARY EMBOLISM 2-3PREVENTION OF SYSTEMIC EMBOLISM: 2-3 ACUTE MYOCARDIAL INFARCTION TISSUE HEART VALVES VALVULAR HEART DISEASE ATRIAL FIBRILLATION RECURRENT SYSTEMIC EMBOLISMMECHANICAL HEART VALVE 2.5-3.5 FROM: ORAL ANTICOAGULANTS. MECHANISM OF ACTION, CLINICAL EFFECTIVENESS, AND OPTIMAL THERAPEUTIC RANGE. CHEST 1995;108:231S-246S. Performed By: #### L [id number] ####[facility] ([facility])[address] [place] [address] PROTHROMBIN TIME (PT) IN PPP BY COAGULATION ASSAY 20.0 Seconds High 12.3-14.8 [facility] Comment on above: Performed By: #### L [id number] ####[facility] ([facility])[address] [place] [address] SODIUM, WHOLE BLOODon 2022 SODIUM, WHOLE BLOOD 129 Low 136-145 [facility] Comment on above: Performed By: #### S ODIUM, WHOLE BLOOD ####[facility] RESPIR[facility] [id number] [place] [address] [place] TYPE AND SCREENon 11-13-2022 AB SCREEN Negative Normal [facility] Comment on above: Performed By: #### L [id number] ####[facility], ABO group Nom (Bld) O Normal [facility] Comment on above: Performed By: #### L [id number] ####[facility], RH TYPE IN BLOOD Positive Normal [facility] Comment on above: Performed By: #### L [id number] ####[facility], TYPE AND SCREEN Negative Normal [facility] Comment on above: Performed By: #### C ESTHELA #### [facility] [address] [address] [address] Joselyn Coffey 30on 11-09-2022 30 Normal [facility] BASIC METABOLIC PANELon 10-12 Anion gap [Moles/Vol] 8 mmol/L Normal 7-20 [facility] Comment on above: Performed By: #### L [id number] ####[facility] ([facility])[address] [place] [address] Calcium [Mass/Vol] 7.4 mg/dL Low 8.6-10.3 [facility] Comment on above: Performed By: #### L [id number] ####[facility] ([facility])[address] [place] [address] Chloride [Moles/Vol] 101 mmol/L Normal 98-107 [facility] Comment on above: Performed By: #### L [id number] ####[facility] ([facility])[address] [place] [address] CO2 [Moles/Vol] 23 mmol/L Normal 21-31 [facility] Comment on above: Performed By: #### L [id number] ####[facility] ([facility])[address] [place] [address] Creatinine [Mass/Vol] 0.57 mg/dL Low 0.70-1.30 [facility] Comment on above: Performed By: #### L [id number] ####[facility] ([facility])[address] [place] [address] GLOMERULAR FILTRATION RATE ML/MIN/1.73 SQ M.PREDICTED 100.4 mL/min/1.73m*2 Normal >60.0 [facility] Comment on above: Result Comment: [facility]???s estimated glomerular filtration rate (eGFR) will no longer include consideration of race in its calculation. The National Kidney Foundation???s eGFR Task Force developed new recommendations for the estimation of the glomerular filtration rate in the [place] They recommend immediate implementation of the new equation refit without the race variable in all laboratories because the calculation does not include race. In addition to not including race in the calculation and reporting, it included diversity in its development, and has acceptable performance characteristics and potential consequences that do not disproportionately affect any one group of individuals. Performed By: #### L [id number] ####[facility] ([facility])[address] [place] [address] Glucose [Mass/Vol] 118 mg/dL High 70-100 [facility] Comment on above: Performed By: #### L [id number] ####[facility] ([facility])[address] [place] [address] Potassium [Moles/Vol] 3.8 mmol/L Normal 3.5-5.[address] [facility] Comment on above: Performed By: #### L [id number] ####[facility] ([facility])[address] [place] [address] Sodium [Moles/Vol] 132 mmol/L Low 136-145 [facility] Comment on above: Performed By: #### L [id number] ####[facility] ([facility])[address] [place] [address] Urea nitrogen [Mass/Vol] 12 mg/dL Normal 7-25 [facility] Comment on above: Performed By: #### L [id number] ####[facility] ([facility])[address] [place] [address] UREA NITROGEN/CREATININE (MASS RATIO) IN SER/PLAS 21.05 Normal [facility] Comment on above: Performed By: #### L [id number] ####[facility] ([facility] [address] CBCon 11-09-2022 Erythrocyte distribution width (RBC) [Ratio] 15.1 % High 11.5-15.0 [facility] Comment on above: Performed By: #### L [id number] ####[facility] ([facility])[address] [address] ERYTHROCYTE MEAN CORPUSCULAR HEMOGLOBIN CONCENTRATION (G/DL) BY AUTOMATED 34.4 g/dL Normal 32.0-35.0 [facility] Comment on above: Performed By: #### L [id number] ####[facility] ([facility])[address] [place] [address] Hematocrit (Bld) [Volume fraction] 22.1 % Low 39.0-55.0 [facility] Comment on above: Performed By: #### L [id number] ####[facility] ([facility])[address] [place] [address] Hemoglobin (Bld) [Mass/Vol] 7.6 g/dL Low 13.0-17.0 [facility] Comment on above: Performed By: #### L [id number] ####[facility] ([facility])[address] [address] IMMATURE PLATELET FRACTION % 5.5 % Normal 0.8-6.3 [facility] Comment on above: Performed By: #### L [id number] ####[facility] ([facility])[address] [place] [address] MCH (RBC) [Entitic mass] 31.9 pg Normal 27.0-33.0 [facility] Comment on above: Performed By: #### L [id number] ####[facility] [place] [address] MCV (RBC) [Entitic vol] 92.9 fL Normal 82.0-98.0 [facility] Comment on above: Performed By: #### L [id number] ####[facility] ([facility] [place] [address] PLATELETS (10*3/UL) IN BLOOD AUTOMATED COUNT 67 10*3/uL Low 150-400 [facility] Comment on above: Performed By: #### L [id number] ####[facility] ([facility])[address] [place] [address] RBC (Bld) [#/Vol] 2.38 10*6/uL Low 4.20-5.70 [facility] Comment on above: Performed By: #### L [id number] ####[facility] ([facility])[address] [place] [address] WBC (Bld) [#/Vol] 3.36 10*3/uL Low 4.00-10.60 [facility] Comment on above: Performed By: #### L [id number] ####[facility] ([facility])[address] [place] [address] DSon 11-09-2022 DS Normal [facility] MAGNESIUMon 11-09-2022 Magnesium [Mass/Vol] 1.8 mg/dL Low 1.9-2.7 [facility] Comment on above: Performed By: #### L [id number] ####[facility] ([facility])[address] [place] [address] PHOSPHORUSon 11-09-2022 Magnesium [Mass/Vol] 1.9 mg/dL Low 2.5-5.0 [facility] Comment on above: Performed By: #### L [id number] ####[facility] [place] [address] POCT GLUCOSE METER UNSOLICIT ED RESULTSon 11-09-2022 Glucose [Mass/Vol] 137 mg/dL High 70-105 [facility] Comment on above: Result Comment: [email or web address] Performed By: #### L [id number] ####[facility] [place] [address] Glucose [Mass/Vol] 134 mg/dL High 70-105 [facility] Comment on above: Result Comment: [email or web address] Performed By: #### L [id number] ####[facility] ([facility])[address] [place] [address] Glucose [Mass/Vol] 134 mg/dL High 70-105 [facility] Comment on above: Result Comment: [email or web address] Performed By: #### L [id number] ####[facility] ([facility])[address] [place] [address] Glucose [Mass/Vol] 122 mg/dL High 70-105 [facility] Comment on above: Result Comment: [email or web address] [email or web address] Performed By: #### L [id number] ####[facility] ([facility])[address] [place] [address] 30on 11-08-2022 30 Normal [facility] 30 The patient is Moder ately Stable - Low risk of patient condition declining or worsening The patient's goals for the shift include comfort The clinical goals for the shift include VSS Normal [facility] APTTon 11-08-2022 ACTIVATED PARTIAL THROMBOPLASTIN TIME IN PPP BY COAGULATION ASSAY 58.7 Seconds High 25.0-35.0 [facility] Comment on above: Performed By: #### L [id number] ####[facility] ([facility])[address] [place] [address] BASIC METABOLIC PANELon 10-12 Anion gap [Moles/Vol] 6 mmol/L Low 7-20 [facility] Comment on above: Performed By: #### L [id number] ####[facility] ([facility])[address] [place] [address] Calcium [Mass/Vol] 7.4 mg/dL Low 8.6-10.3 [facility] Comment on above: Performed By: #### L [id number] ####[facility] ([facility])[address] [place] [address] Chloride [Moles/Vol] 102 mmol/L Normal 98-107 [facility] Comment on above: Performed By: #### L [id number] ####[facility] (BEAKER)[address] [place] [address] CO2 [Moles/Vol] 25 mmol/L Normal 21-31 [facility] Comment on above: Performed By: #### L [id number] ####[facility] ([facility] [place] [address] Creatinine [Mass/Vol] 0.70 mg/dL Normal 0.70-1.30 [facility] Comment on above: Performed By: #### L [id number] ####[facility] ([facility])[address] [place] [address] GLOMERULAR FILTRATION RATE ML/MIN/1.73 SQ M.PREDICTED 92.3 mL/min/1.73m*2 Normal >60.0 [facility] Comment on above: Result Comment: The [facility]???s estimated glomerular filtration rate (eGFR) will no longer include consideration of race in its calculation. The National Kidney Foundation???s eGFR Task Force developed new recommendations for the estimation of the glomerular filtration rate in the [place] They recommend immediate implementation of the new equation refit without the race variable in all laboratories because the calculation does not include race. In addition to not including race in the calculation and reporting, it included diversity in its development, and has acceptable performance characteristics and potential consequences that do not disproportionately affect any one group of individuals. Performed By: #### L [id number] ####[facility] ([facility] [place] [address] Glucose [Mass/Vol] 132 mg/dL High 70-100 [facility] Comment on above: Performed By: #### L [id number] ####[facility] (BEAKER)[address] [place] [address] Potassium [Moles/Vol] 3.7 mmol/L Normal 3.5-5.1 [facility] Comment on above: Performed By: #### L [id number] ####[facility] ([facility] [place] [address] Sodium [Moles/Vol] 133 mmol/L Low 136-145 [facility] Comment on above: Performed By: #### L [id number] ####[facility] ([facility])[address] [place] [address] Urea nitrogen [Mass/Vol] 10 mg/dL Normal 7-25 [facility] Comment on above: Performed By: #### L [id number] ####[facility] ([facility])[address] [place] [address] UREA NITROGEN/CREATININE (MASS RATIO) IN SER/PLAS 14.29 Normal [facility] Comment on above: Performed By: #### L [id number] ####[facility] ([facility])[address] [place] [address] CBCon 11-08-2022 Erythrocyte distribution width (RBC) [Ratio] 14.3 % Normal 11.5-15.0 [facility] Comment on above: Performed By: #### L [id number] ####[facility] ([facility])[address] [place] [address] ERYTHROCYTE MEAN CORPUSCULAR HEMOGLOBIN CONCENTRATION (G/DL) BY AUTOMATED 36.0 g/dL High 32.0-35.0 [facility] Comment on above: Performed By: #### L [id number] ####[facility] ([facility])[address] [place] [address] Hematocrit (Bld) [Volume fraction] 21.4 % Low 39.0-55.0 [facility] Comment on above: Performed By: #### L [id number] ####[facility] ([facility] [place] [address] Hemoglobin (Bld) [Mass/Vol] 7.7 g/dL Low 13.0-17.0 [facility] Comment on above: Performed By: #### L [id number] ####[facility] ([facility] [place] [address] IMMATURE PLATELET FRACTION % 6.1 % Normal 0.8-6.3 [facility] Comment on above: Performed By: #### L [id number] ####[facility] ([facility])[address], [place] [address] MCH (RBC) [Entitic mass] 32.5 pg Normal 27.0-33.0 [facility] Comment on above: Performed By: #### L [id number] ####[facility] ([facility])[address] [address] MCV (RBC) [Entitic vol] 90.3 fL Normal 82.0-98.0 [facility] Comment on above: Performed By: #### L [id number] ####[facility] ([facility])[address], [place] [address] PLATELETS (10*3/UL) IN BLOOD AUTOMATED COUNT 54 10*3/uL Low 150-400 [facility] Comment on above: Result Comment: P=46 , 1D Performed By: #### L [id number] ####[facility] ([facility])[address] [place] [address] RBC (Bld) [#/Vol] 2.37 10*6/uL Low 4.20-5.70 [facility] Comment on above: Performed By: #### L [id number] ####[facility] ([facility])[address], [place] [address] WBC (Bld) [#/Vol] 2.40 10*3/uL Low 4.00-10.60 [facility] Comment on above: Performed By: #### L [id number] ####[facility] ([facility])[address] [place] [address] CBC WITH AUTO DIFFERENTIALon 11-08-2022 Erythrocyte distribution width (RBC) [Ratio] 14.6 % Normal 11.5-15.0 [facility] Comment on above: Performed By: #### L [id number] ####[facility] ([facility])[address] [place] [address] ERYTHROCYTE MEAN CORPUSCULAR HEMOGLOBIN CONCENTRATION (G/DL) BY AUTOMATED 34.5 g/dL Normal 32.0-35.0 [facility] Comment on above: Performed By: #### L [id number] ####[facility] ([facility])[address] [place] [address] Hematocrit (Bld) [Volume fraction] 23.5 % Normal [facility] Comment on above: Performed By: #### L [id number] ####[facility] ([facility])[address] [place] [address] Performed By: #### L [id number] ####[facility] ([facility])[address] [place] [address] Hemoglobin (Bld) [Mass/Vol] 8.1 g/dL Low 13.0-17.0 [facility] Comment on above: Performed By: #### L [id number] ####[facility] ([facility])[address] [place] [address] IMMATURE PLATELET FRACTION % 5.7 % Normal 0.8-6.3 [facility] Comment on above: Performed By: #### L [id number] ####[facility] ([facility])[address] [place] [address] MCH (RBC) [Entitic mass] 31.6 pg Normal 27.0-33.0 [facility] Comment on above: Performed By: #### L [id number] ####[facility] ([facility])[address] [place] [address] MCV (RBC) [Entitic vol] 91.8 fL Normal 82.0-98.0 [facility] Comment on above: Performed By: #### L [id number] ####[facility] ([facility])[address] [place] [address] NRBC (PER 100 WBCS) BY AUTOMATED COUNT 0.0 % Normal 0.0-0.0 [facility] Comment on above: Performed By: #### L [id number] ####[facility] ([facility])[address] [place] [address] PLATELETS (10*3/UL) IN BLOOD AUTOMATED COUNT 67 10*3/uL Low 150-400 [facility] Comment on above: Performed By: #### L [id number] ####[facility] ([facility])[address] [place] [address] RBC (Bld) [#/Vol] 2.56 10*6/uL Low 4.20-5.70 [facility] Comment on above: Performed By: #### L [id number] ####[facility] ([facility])[address] [place] [address] WBC (Bld) [#/Vol] 3.23 10*3/uL Low 4.00-10.60 [facility] Comment on above: Performed By: #### L [id number] ####[facility] ([facility])[address] [place] [address] CONSULTon 11-08-2022 CONSULT Normal [facility] D-DIMER, QUANTITATIVEon 10-12 FIBRIN D-DIMER (UG/L FEU) IN PLATELET POOR PLASMA 0.69 mcg/mL FEU High 0.27-0.49 [facility] Comment on above: Order Comment: D-Dim er values of less than 0.50 ug/ml (FEU) are considered to be a negative predictor of thrombosis. However, the D-Dimer result should be used in conjunction with pretest probability and should not be used alone to diagnose a thrombotic event. Performed By: #### L [id number] ####[facility] ([facility])[address] [place] [address] FERRITINon 11-08-2022 FERRITIN (NG/ML) IN SER/PLAS 197.0 ng/mL Normal 24.0-336.0 [facility] Comment on above: Performed By: #### L [id number] ####[facility] ([facility])[address] [place] [address] FIBRIN SPLIT PRODUCTSon 10-12 FDP <5ug/mL Normal [facility] Comment on above: Performed By: #### L [id number] ####[facility] ([facility])[address] [place] [address] FIBRINOGENon 11-08-2022 Magnesium [Mass/Vol] 483 mg/dL High 150-425 [facility] Comment on above: Performed By: #### L [id number] ####[facility] ([facility])[address] [place] [address] FOLATE RBCon 11-08-2022 RBC FOLATE 1504 ng/mL Normal >=366 [facility] Comment on above: Result Comment: Perf ormed By: [employer] [address] [place], [place] [address]Iwlcujjpaw Director: Dashawn Dumont MD, PhD Performed By: #### L [id number] ####[facility] ([facility])[address] [place] [address] HAPTOGLOBINon 11-08-2022 Magnesium [Mass/Vol] 49.8 mg/dL Normal 26-164 [facility] Comment on above: Performed By: #### L [id number] ####[facility] ([facility])[address] [place] [address] IRON AND TIBCon 11-08-2022 IRON (UG/DL) IN SER/PLAS 42 ug/dL Low 50-212 [facility] Comment on above: Performed By: #### L [id number] ####[facility] ([facility])[address] [place] [address] IRON BINDING CAPACITY (UG/DL) IN SER/PLAS 228 ug/dL Low 250-450 [facility] Comment on above: Performed By: #### L [id number] ####[facility] ([facility])[address] [place] [address] IRON BINDING CAPACITY.UNSATURATED (UG/DL) IN SER/PLAS 186.0 ug/dL Normal 155.0-355.0 [facility] Comment on above: Performed By: #### L [id number] ####[facility] ([facility])[address] [place] [address] IRON SATURATION (%) IN SER/PLAS 18 % Low 20-50 [facility] Comment on above: Performed By: #### L [id number] ####[facility] ([facility])[address] [place] [address] LACTATE DEHYDROGENASEon 10-12 LACTATE DEHYDROGENASE (U/L) IN SER/PLAS BY LAC->PYR RXN 164 U/L Normal 140-271 [facility] Comment on above: Performed By: #### L [id number] ####[facility] ([facility])[address] [place] [address] MAGNESIUMon 11-08-2022 Magnesium [Mass/Vol] 1.9 mg/dL Normal 1.9-2.7 [facility] Comment on above: Performed By: #### L [id number] ####[facility] ([facility])[address] [place] [address] MANUAL DIFFERENTIALon 2022 BASOPHILS (10*3/UL) IN BLOOD BY CALCULATION 0.01 10*3/uL Normal [facility] Comment on above: Performed By: #### L [id number] ####[facility] ([facility])[address] [place] [address] BASOPHILS/100 LEUKOCYTES IN BLOOD BY AUTOMATED COUNT 0.3 % Normal 0.0-1.0 [facility] Comment on above: Performed By: #### L [id number] ####[facility] ([facility])[address] [place] [address] EOSINOPHILS (10*3/UL) IN BLOOD BY CALCULATION 0.02 10*3/uL Normal [facility] Comment on above: Performed By: #### L [id number] ####[facility] ([facility])[address] [place] [address] EOSINOPHILS/100 LEUKOCYTES IN BLOOD BY AUTOMATED COUNT 0.6 % Normal 0.0-6.0 [facility] Comment on above: Performed By: #### L [id number] ####[facility] ([facility])[address] [place] [address] IMMATURE GRANULOCYTES (10*3/UL) IN BLOOD BY CALCULATION 0.02 Normal [facility] Comment on above: Performed By: #### L [id number] ####[facility] ([facility])[address] [place] [address] IMMATURE GRANULOCYTES/100 LEUKOCYTES IN BLOOD BY AUTOMATED COUNT 0.6 % Normal 0.0-1.0 [facility] Comment on above: Performed By: #### L [id number] ####[facility] ([facility])[address] [place] [address] LYMPHOCYTES (10*3/UL) IN BLOOD BY CALCULATION 0.45 10*3/uL Low 1.20-4.00 [facility] Comment on above: Performed By: #### L [id number] ####[facility] ([facility])[address] [address] LYMPHOCYTES/100 LEUKOCYTES IN BLOOD BY AUTOMATED COUNT 13.9 % Low 20.0-45.0 [facility] Comment on above: Performed By: #### L [id number] ####[facility] ([facility])[address] [place] [address] MONOCYTES (10*3/UL) IN BLOOD BY CALCUATION 0.54 10*3/uL Normal [facility] Comment on above: Performed By: #### L [id number] ####[facility] ([facility])[address] [address] MONOCYTES/100 LEUKOCYTES IN BLOOD BY AUTOMATED COUNT 16.7 % High 5.0-12.0 [facility] Comment on above: Performed By: #### L [id number] ####[facility] ([facility])[address] [address] NEUTROPHILS (10*3/UL) IN BLOOD BY CALCULATION 2.2 10*3/uL Normal 1.6-7.6 [facility] Comment on above: Performed By: #### L [id number] ####[facility] ([facility])[address] [address] NEUTROPHILS/100 LEUKOCYTES IN BLOOD BY AUTOMATED COUNT 67.9 % Normal 40.0-72.0 [facility] Comment on above: Performed By: #### L [id number] ####[facility] ([facility])[address] [place] [address] PHOSPHORUSon 11-08-2022 Magnesium [Mass/Vol] 2.4 mg/dL Low 2.5-5.0 [facility] Comment on above: Performed By: #### L [id number] ####[facility] ([facility])[address] [place] [address] POCT GLUCOSE METER UNSOLICIT ED RESULTSon 11-08-2022 Glucose [Mass/Vol] 168 mg/dL High 70-105 [facility] Comment on above: Result Comment: ksha ugh Performed By: #### L [id number] ####[facility] ([facility])[address] [place] [address] Glucose [Mass/Vol] 155 mg/dL High 70-105 [facility] Comment on above: Result Comment: ksha ugh Performed By: #### L [id number] ####[facility] ([facility])[address] [place] [address] Glucose [Mass/Vol] 134 mg/dL High 70-105 [facility] Comment on above: Result Comment: ksha ugh Performed By: #### L [id number] ####[facility] ([facility])[address] [place] [address] Glucose [Mass/Vol] 160 mg/dL High 70-105 [facility] Comment on above: Result Comment: dhic ks3 Performed By: #### L [id number] ####[facility] ([facility])[address] [place] [address] Glucose [Mass/Vol] 142 mg/dL High 70-105 [facility] Comment on above: Result Comment: dhic ks3 Performed By: #### L [id number] ####[facility] ([facility])[address] [place] [address] PROTIME-INRon 11-08-2022 INR IN PPP BY COAGULATION ASSAY 1.16 High 0.90-1.10 [facility] Comment on above: Result Comment: ACCC P RECOMMENDED INR FOR WARFARIN THERAPY CONDITION INRPROPHYLAXIS OF VENOUS THROMBOSIS 2-3(HIGH-RISK SURGERY)TREATMENT OF VENOUS THROMBOSIS 2-3TREATMENT OF PULMONARY EMBOLISM 2-3PREVENTION OF SYSTEMIC EMBOLISM: 2-3 ACUTE MYOCARDIAL INFARCTION TISSUE HEART VALVES VALVULAR HEART DISEASE ATRIAL FIBRILLATION RECURRENT SYSTEMIC EMBOLISMMECHANICAL HEART VALVE 2.5-3.5 FROM: ORAL ANTICOAGULANTS. MECHANISM OF ACTION, CLINICAL EFFECTIVENESS, AND OPTIMAL THERAPEUTIC RANGE. CHEST 1995;108:231S-246S. Performed By: #### L [id number] ####[facility] [employer])[address] [place] [address] PROTHROMBIN TIME (PT) IN PPP BY COAGULATION ASSAY 14.8 Seconds Normal 12.3-14.8 [facility] Comment on above: Performed By: #### L [id number] ####[facility] [employer])[address] [place] [address] RETICULOCYTE PANELon 01-30-2 023 HEMOGLOBIN (PG) IN RETICULOCYTES 37.3 pg High 28.0-36.0 [facility] Comment on above: Performed By: #### L [id number] ####[facility] [employer])[address] [place] [address] IMMATURE RETICULOCYTE FRACTION (%) 34.8 % High 2-16 [facility] Comment on above: Performed By: #### L [id number] ####[facility] [employer])[address] [place] [address] RETICULOCYTES (10*6/UL) IN BLOOD 0.1073 10*6/uL High 0.0250-0.10 00 [facility] Comment on above: Performed By: #### L [id number] ####[facility] ([facility])[address] [place] [address] Reticulocytes/100 RBC (Bld) 4.19 % High 0.50-1.80 [facility] Comment on above: Performed By: #### L [id number] ####[facility] ([facility])[address] [place] [address] SEROTONIN RELEASE ASSAY, UNF RACTIONATED HEPARINon 11-08-2022 WARREN, UNFRACTIONATED HEPARIN Negative Normal Negative [facility] Comment on above: Performed By: #### L [id number] ####[facility] ([facility])[address] [place] [address] WARREN, UNFRACTIONATED HEPARIN, HIGH DOSE 0 % Normal [facility] Comment on above: Performed By: #### L [id number] ####[facility] ([facility])[address] [place] [address] WARREN, UNFRACTIONATED HEPARIN, INTERP. See Note Normal [facility] Comment on above: Result Comment: This patient's specimen demonstrates a negative result in theserotonin release assay. A diagnosis of heparin-inducedthrombocytopenia (HIT) is unlikely, but not completely excluded.A positive result would demonstrate >= 20% serotonin release fromreagent platelets in the presence of patient specimen and low-doseheparin (0.1 U/mL) and <20% serotonin release from reagentplatelets (inhibition of the reaction) in the presence of patientspecimen and high-dose heparin (100 U/mL). Additionalinformation regarding diagnosis of HIT is available [email or web address].INTERPRETIVE INFORMATION: WARREN, Unfractionated HeparinThis test was developed and its performance characteristicsdetermined by [employer]. It has not been cleared orapproved by the [place] Food and Drug Administration. This test wasperformed in a CLIA certified laboratory and is intended forclinical purposes.Performed By: [employer] [place], [place] [address]Nwobceshlz Director: Dashawn Dumont MD, PhD Performed By: #### L [id number] ####[facility] ([facility])[address] [place] [address] WARREN, UNFRACTIONATED HEPARIN, LOW DOSE 0 % Normal [facility] Comment on above: Performed By: #### L [id number] ####[facility] ([facility] [place] [address] TSHon 11-08-2022 THYROTROPIN (MIU/L) IN SER/PLAS BY DETECTION LIMIT <= 0.05 MIU/L 0.60 mIU/L Normal 0.34-5.60 [facility] Comment on above: Performed By: #### L [id number] ####[facility] ([facility])[address] [place] [address] VITAMIN B12on 11-08-2022 Cobalamin (Vitamin B12) [Mass/Vol] 799 pg/mL Normal 180-914 [facility] Comment on above: Result Comment: REFE RENCE RANGES:180-914 pg/mL Lsteox551-433 pg/mL Indeterminate<145 pg/mL Deficient Performed By: #### L [id number] ####[facility] ([facility])[address] [place] [address] 30on 11-07-2022 30 Normal [facility] 30 Normal [facility] BASIC METABOLIC PANELon 10-11 Anion gap [Moles/Vol] 6 mmol/L Low 7-[address] [facility] Comment on above: Performed By: #### L [id number] ####[facility] ([facility])[address] [place] [address] Calcium [Mass/Vol] 7.4 mg/dL Low 8.6-10.3 [facility] Comment on above: Performed By: #### L [id number] ####[facility] ([facility])[address] [place] [address] Chloride [Moles/Vol] 101 mmol/L Normal 98-107 [facility] Comment on above: Performed By: #### L [id number] ####[facility] ([facility])[address] [place] [address] CO2 [Moles/Vol] 26 mmol/L Normal 21-31 [facility] Comment on above: Performed By: #### L [id number] ####[facility] ([facility])[address] [place] [address] Creatinine [Mass/Vol] 0.64 mg/dL Low 0.70-1.[address] [facility] Comment on above: Performed By: #### L [id number] ####[facility] ([facility])[address] [place] [address] GLOMERULAR FILTRATION RATE ML/MIN/1.73 SQ M.PREDICTED 95.8 mL/min/1.73m*2 Normal >60.0 [facility] Comment on above: Result Comment: The [facility]???s estimated glomerular filtration rate (eGFR) will no longer include consideration of race in its calculation. The National Kid[employer] Foundation???s eGFR Task Force developed new recommendations for the estimation of the glomerular filtration rate in the [place] They recommend immediate implementation of the new equation refit without the race variable in all laboratories because the calculation does not include race. In addition to not including race in the calculation and reporting, it included diversity in its development, and has acceptable performance characteristics and potential consequences that do not disproportionately affect any one group of individuals. Performed By: #### L [id number] ####[facility] ([facility])[address] [place] [address] Glucose [Mass/Vol] 124 mg/dL High 70-100 [facility] Comment on above: Performed By: #### L [id number] ####[facility] ([facility])[address] [place] [address] Potassium [Moles/Vol] 3.5 mmol/L Normal 3.5-5.[address] [facility] Comment on above: Performed By: #### L [id number] ####[facility] ([facility])[address] [place] [address] Sodium [Moles/Vol] 133 mmol/L Low 136-145 [facility] Comment on above: Performed By: #### L [id number] ####[facility] ([facility])[address] [place] [address] Urea nitrogen [Mass/Vol] 11 mg/dL Normal 7-25 [facility] Comment on above: Performed By: #### L [id number] ####[facility] ([facility])[address] [place] [address] UREA NITROGEN/CREATININE (MASS RATIO) IN SER/PLAS 17.19 Normal [facility] Comment on above: Performed By: #### L [id number] ####[facility] ([facility])[address] [address] CBCon 11-07-2022 Erythrocyte distribution width (RBC) [Ratio] 14.3 % Normal 11.5-15.0 [facility] Comment on above: Performed By: #### L [id number] ####[facility] ([facility])[address] [place] [address] ERYTHROCYTE MEAN CORPUSCULAR HEMOGLOBIN CONCENTRATION (G/DL) BY AUTOMATED 36.0 g/dL High 32.0-35.0 [facility] Comment on above: Performed By: #### L [id number] ####[facility] ([facility])[address] [place] [address] Hematocrit (Bld) [Volume fraction] 21.4 % Low 39.0-55.0 [facility] Comment on above: Performed By: #### L [id number] ####[facility] ([facility])[address] [place] [address] Hemoglobin (Bld) [Mass/Vol] 7.7 g/dL Low 13.0-17.0 [facility] Comment on above: Performed By: #### L [id number] ####[facility] ([facility])[address] [place] [address] IMMATURE PLATELET FRACTION % 5.8 % Normal 0.8-6.3 [facility] Comment on above: Performed By: #### L [id number] ####[facility] ([facility])[address] [place] [address] MCH (RBC) [Entitic mass] 32.1 pg Normal 27.0-33.0 [facility] Comment on above: Performed By: #### L [id number] ####[facility] ([facility])[address] [place] [address] MCV (RBC) [Entitic vol] 89.2 fL Normal 82.0-98.0 [facility] Comment on above: Performed By: #### L [id number] ####[facility] ([facility])[address] [place] [address] PLATELETS (10*3/UL) IN BLOOD AUTOMATED COUNT 46 10*3/uL Low 150-400 [facility] Comment on above: Performed By: #### L [id number] ####[facility] ([facility])[address] [address] RBC (Bld) [#/Vol] 2.40 10*6/uL Low 4.20-5.70 [facility] Comment on above: Performed By: #### L [id number] ####[facility] ([facility] [place] [address] WBC (Bld) [#/Vol] 2.95 10*3/uL Low 4.00-10.60 [facility] Comment on above: Performed By: #### L [id number] ####[facility] ([facility])[address] [place] [address] HEMOGLOBIN AND HEMATOCRIT, B LOODon 11-07-2022 Hematocrit (Bld) [Volume fraction] 20.1 % Low 39.0-55.0 [facility] Comment on above: Performed By: #### L [id number] ####[facility] ([facility])[address] [place] [address] Hemoglobin (Bld) [Mass/Vol] 7.3 g/dL Low 13.0-17.0 [facility] Comment on above: Performed By: #### L [id number] ####[facility] ([facility])[address] [place] [address] MAGNESIUMon 11-07-2022 Magnesium [Mass/Vol] 1.8 mg/dL Low 2.5-5.0 [facility] Comment on above: Performed By: #### L [id number] ####[facility] ([facility])[address] [place] [address] Performed By: #### L [id number] ####[facility] ([facility])[address] [place] [address] POCT GLUCOSE METER UNSOLICIT ED RESULTSon 11-07-2022 Glucose [Mass/Vol] 126 mg/dL High 70-105 [facility] Comment on above: Result Comment: shbre [email or web address] Performed By: #### L [id number] ####[facility] ([facility])[address] [place] [address] Glucose [Mass/Vol] 158 mg/dL High 70-105 [facility] Comment on above: Result Comment: shuf [email or web address] Performed By: #### L [id number] ####[facility] ([facility])[address] [place] [address] Glucose [Mass/Vol] 130 mg/dL High 70-105 [facility] Comment on above: Result Comment: jlip [email or web address] Performed By: #### L [id number] ####[facility] ([facility])[address] [place] [address] 30on 11-06-2022 30 The patient is Moder ately Stable - Low risk of patient condition declining or worsening The patient's goals for the shift include move more/ less swelling The clinical goals for the shift include noo bleeding from operative sites Normal [facility] BASIC METABOLIC PANELon 10-11 Anion gap [Moles/Vol] 3 mmol/L Low 7-20 [facility] Comment on above: Performed By: #### L [id number] ####[facility] ([facility])[address] [place] [address] Calcium [Mass/Vol] 7.6 mg/dL Low 8.6-10.3 [facility] Comment on above: Performed By: #### L [id number] ####[facility] ([facility] [place] [address] Chloride [Moles/Vol] 102 mmol/L Normal 98-107 [facility] Comment on above: Performed By: #### L [id number] ####[facility] ([facility])[address] [place] [address] CO2 [Moles/Vol] 28 mmol/L Normal 21-31 [facility] Comment on above: Performed By: #### L [id number] ####[facility] ([facility])[address] [place] [address] Creatinine [Mass/Vol] 0.62 mg/dL Low 0.70-1.30 [facility] Comment on above: Performed By: #### L [id number] ####[facility] ([facility])[address] [place] [address] GLOMERULAR FILTRATION RATE ML/MIN/1.73 SQ M.PREDICTED 97.0 mL/min/1.73m*2 Normal >60.0 [facility] Comment on above: Result Comment: The [facility]???s estimated glomerular filtration rate (eGFR) will no longer include consideration of race in its calculation. The National Kidney Foundation???s eGFR Task Force developed new recommendations for the estimation of the glomerular filtration rate in the [place] They recommend immediate implementation of the new equation refit without the race variable in all laboratories because the calculation does not include race. In addition to not including race in the calculation and reporting, it included diversity in its development, and has acceptable performance characteristics and potential consequences that do not disproportionately affect any one group of individuals. Performed By: #### L [id number] ####[facility] ([facility])[address] [place] [address] Glucose [Mass/Vol] 138 mg/dL High 70-100 [facility] Comment on above: Performed By: #### L [id number] ####[facility] ([facility])[address] [place] [address] Potassium [Moles/Vol] 3.9 mmol/L Normal 3.5-5.1 [facility] Comment on above: Performed By: #### L [id number] ####[facility] ([facility])[address] [place] [address] Sodium [Moles/Vol] 133 mmol/L Low 136-145 [facility] Comment on above: Performed By: #### L [id number] ####[facility] ([facility])[address] [place] [address] Urea nitrogen [Mass/Vol] 11 mg/dL Normal 7-25 [facility] Comment on above: Performed By: #### L [id number] ####[facility] ([facility])[address] [place] [address] UREA NITROGEN/CREATININE (MASS RATIO) IN SER/PLAS 17.74 Normal [facility] Comment on above: Performed By: #### L [id number] ####[facility] ([facility])[address] [place] [address] CBCon 11-06-2022 Erythrocyte distribution width (RBC) [Ratio] 14.5 % Normal 11.5-15.0 [facility] Comment on above: Performed By: #### L [id number] ####[facility] ([facility] [place] [address] ERYTHROCYTE MEAN CORPUSCULAR HEMOGLOBIN CONCENTRATION (G/DL) BY AUTOMATED 34.9 g/dL Normal 32.0-35.0 [facility] Comment on above: Performed By: #### L [id number] ####[facility] ([facility])[address] [place] [address] Hematocrit (Bld) [Volume fraction] 25.2 % Low 39.0-55.0 [facility] Comment on above: Performed By: #### L [id number] ####[facility] ([facility])[address] [place] [address] Hemoglobin (Bld) [Mass/Vol] 8.8 g/dL Low 13.0-17.0 [facility] Comment on above: Performed By: #### L [id number] ####[facility] ([facility])[address] [place] [address] IMMATURE PLATELET FRACTION % 3.9 % Normal 0.8-6.3 [facility] Comment on above: Performed By: #### L [id number] ####[facility] ([facility])[address] [address] MCH (RBC) [Entitic mass] 31.7 pg Normal 27.0-33.0 [facility] Comment on above: Performed By: #### L [id number] ####[facility] ([facility])[address] [place] [address] MCV (RBC) [Entitic vol] 90.6 fL Normal 82.0-98.0 [facility] Comment on above: Performed By: #### L [id number] ####[facility] ([facility])[address] [place] [address] PLATELETS (10*3/UL) IN BLOOD AUTOMATED COUNT 53 10*3/uL Low 150-400 [facility] Comment on above: Result Comment: 52 3 d Performed By: #### L [id number] ####[facility] ([facility])[address] [place] [address] RBC (Bld) [#/Vol] 2.78 10*6/uL Low 4.20-5.70 [facility] Comment on above: Performed By: #### L [id number] ####[facility] ([facility])[address] [place] [address] WBC (Bld) [#/Vol] 4.17 10*3/uL Normal 4.00-10.60 [facility] Comment on above: Performed By: #### L [id number] ####[facility] ([facility])[place] [address] CONSULTon 11-06-2022 CONSULT Normal [facility] HEMOGLOBIN AND HEMATOCRIT, B LOODon 11-06-2022 Hematocrit (Bld) [Volume fraction] 24.2 % Low 39.0-55.0 [facility] Comment on above: Performed By: #### L [id number] ####[facility] ([facility])[address] [place] [address] Hemoglobin (Bld) [Mass/Vol] 8.4 g/dL Low 13.0-17.0 [facility] Comment on above: Performed By: #### L [id number] ####[facility] ([facility])[address] [place] [address] Hematocrit (Bld) [Volume fraction] 23.0 % Low 39.0-55.0 [facility] Comment on above: Performed By: #### L [id number] ####[facility] ([facility])[address] [place] [address] Hemoglobin (Bld) [Mass/Vol] 8.3 g/dL Low 13.0-17.0 [facility] Comment on above: Performed By: #### L [id number] ####[facility] ([facility])[address] [place] [address] Hematocrit (Bld) [Volume fraction] 23.6 % Low 39.0-55.0 [facility] Comment on above: Performed By: #### L [id number] ####[facility] ([facility])[address] [place] [address] Hemoglobin (Bld) [Mass/Vol] 8.4 g/dL Low 13.0-17.0 [facility] Comment on above: Performed By: #### L [id number] ####[facility] ([facility])[address] [place] [address] MAGNESIUMon 11-06-2022 Magnesium [Mass/Vol] 2.0 mg/dL Normal 1.9-2.7 [facility] Comment on above: Performed By: #### L [id number] ####[facility] ([facility])[address] [place] [address] PHOSPHORUSon 11-06-2022 Magnesium [Mass/Vol] 1.6 mg/dL Low 2.5-5.0 [facility] Comment on above: Performed By: #### L [id number] ####[facility] ([facility] [place] [place] [address] POCT GLUCOSE METER UNSOLICIT ED RESULTSon 11-06-2022 Glucose [Mass/Vol] 177 mg/dL High 70-105 [facility] Comment on above: Result Comment: vodo m2 Performed By: #### L [id number] ####[facility] ([facility])[address] [place] [address] Glucose [Mass/Vol] 185 mg/dL High 70-105 [facility] Comment on above: Result Comment: vodo m2 Performed By: #### L [id number] ####[facility] ([facility])[address] [place] [address] Glucose [Mass/Vol] 110 mg/dL High 70-105 [facility] Comment on above: Result Comment: jlip [email or web address] Performed By: #### L [id number] ####[facility] ([facility])[address] [place] [address] 30on 11-05-2022 30 Normal [facility] 30 Normal [facility] 30 Normal [facility] ARTERIAL BLOOD GAS WITH IONI ZED CALCIUMon 11-05-2022 Base excess Calc (Bld) [Moles/Vol] -0.7000 mmol/L Normal -2.0-3.0 [facility] Comment on above: Performed By: #### L [id number] ####[facility] [id number] [place] [address] [facility] CALCIUM IONIZED (MMOL/L) IN BLOOD 1.19 mmol/L Normal 1.15-1.33 [facility] Comment on above: Performed By: #### L [id number] ####[facility] [id number] [place] [address] [place] CO2 (Bld) [Partial pressure] 36 mm[Hg] Normal 35-48 [facility] Comment on above: Performed By: #### L [id number] ####[facility] [id number] [place] [address] [place] HCO3 (Bld) [Moles/Vol] 23.4 mmol/L Normal 21.0-28.0 [facility] Comment on above: Performed By: #### L [id number] ####[facility] [id number] [place] [address] [facility] Oxygen (Bld) [Partial pressure] 90 mm[Hg] Normal 83-100 [facility] Comment on above: Performed By: #### L [id number] ####[facility] [id number] [place] [address] [facility] OXYGEN SATURATION (%) IN ARTERIAL BLOOD 99.3 % High 94.0-98.0 [facility] Comment on above: Performed By: #### L [id number] ####[facility] [id number] [place] [address] [facility] pH (Bld) 7.42 [pH] Normal 7.35-7.45 [facility] Comment on above: Performed By: #### L [id number] ####[facility] [id number] [place] [address] [facility] SOURCE OF OXYGEN Room Air Normal [facility] Comment on above: Performed By: #### L [id number] ####[facility] RES[facility] [id number] [place] [address] [facility] BASIC METABOLIC PANELon 10-11 Anion gap [Moles/Vol] 3 mmol/L Low 7-20 [facility] Comment on above: Performed By: #### L [id number] ####[facility] ([facility])[address] [place] [address] Calcium [Mass/Vol] 7.4 mg/dL Low 8.6-10.3 [facility] Comment on above: Performed By: #### L [id number] ####[facility] ([facility])[address] [place] [address] Chloride [Moles/Vol] 104 mmol/L Normal 98-107 [facility] Comment on above: Performed By: #### L [id number] ####[facility] ([facility])[address] [place] [address] CO2 [Moles/Vol] 24 mmol/L Normal 21-31 [facility] Comment on above: Performed By: #### L [id number] ####[facility] ([facility])[address] [place] [address] Creatinine [Mass/Vol] 0.72 mg/dL Normal 0.70-1.30 [facility] Comment on above: Performed By: #### L [id number] ####[facility] ([facility])[address] [place] [address] GLOMERULAR FILTRATION RATE ML/MIN/1.73 SQ M.PREDICTED 91.3 mL/min/1.73m*2 Normal >60.0 [facility] Comment on above: Result Comment: The [facility]???s estimated glomerular filtration rate (eGFR) will no longer include consideration of race in its calculation. The National Kidney Foundation???s eGFR Task Force developed new recommendations for the estimation of the glomerular filtration rate in the [place] They recommend immediate implementation of the new equation refit without the race variable in all laboratories because the calculation does not include race. In addition to not including race in the calculation and reporting, it included diversity in its development, and has acceptable performance characteristics and potential consequences that do not disproportionately affect any one group of individuals. Performed By: #### L [id number] ####[facility] ([facility])[address] [place] [address] Glucose [Mass/Vol] 144 mg/dL High 70-100 [facility] Comment on above: Performed By: #### L [id number] ####[facility] ([facility])[address] [place] [address] Potassium [Moles/Vol] 3.8 mmol/L Normal 3.5-5.1 [facility] Comment on above: Performed By: #### L [id number] ####[facility] ([facility])[address] [place] [address] Sodium [Moles/Vol] 131 mmol/L Low 136-145 [facility] Comment on above: Performed By: #### L [id number] ####[facility] ([facility])[address] [place] [address] Urea nitrogen [Mass/Vol] 17 mg/dL Normal 7-25 [facility] Comment on above: Performed By: #### L [id number] ####[facility] ([facility])[address] [place] [address] UREA NITROGEN/CREATININE (MASS RATIO) IN SER/PLAS 23.61 Normal [facility] Comment on above: Performed By: #### L [id number] ####[facility] ([facility] [place] [address] CBCon 11-05-2022 Erythrocyte distribution width (RBC) [Ratio] 14.6 % Normal 11.5-15.0 [facility] Comment on above: Performed By: #### L [id number] ####[facility] ([facility] [place] [address] ERYTHROCYTE MEAN CORPUSCULAR HEMOGLOBIN CONCENTRATION (G/DL) BY AUTOMATED 35.9 g/dL High 32.0-35.0 [facility] Comment on above: Performed By: #### L [id number] ####[facility] ([facility])[address] [place] [address] Hematocrit (Bld) [Volume fraction] 25.1 % Low 39.0-55.0 [facility] Comment on above: Performed By: #### L [id number] ####[facility] ([facility])[address] [place] [address] Hemoglobin (Bld) [Mass/Vol] 9.0 g/dL Low 13.0-17.0 [facility] Comment on above: Performed By: #### L [id number] ####[facility] ([facility])[address] [place] [address] IMMATURE PLATELET FRACTION % 4.0 % Normal 0.8-6.3 [facility] Comment on above: Performed By: #### L [id number] ####[facility] ([facility])[address] [place] [address] MCH (RBC) [Entitic mass] 31.9 pg Normal 27.0-33.0 [facility] Comment on above: Performed By: #### L [id number] ####[facility] ([facility])[address] [address] MCV (RBC) [Entitic vol] 89.0 fL Normal 82.0-98.0 [facility] Comment on above: Performed By: #### L [id number] ####[facility] ([facility])[address] [address] PLATELETS (10*3/UL) IN BLOOD AUTOMATED COUNT 54 10*3/uL Low 150-400 [facility] Comment on above: Performed By: #### L [id number] ####[facility] ([facility])[address] [address] RBC (Bld) [#/Vol] 2.82 10*6/uL Low 4.20-5.70 [facility] Comment on above: Performed By: #### L [id number] ####[facility] ([facility])[address] [address] WBC (Bld) [#/Vol] 5.31 10*3/uL Normal 4.00-10.60 [facility] Comment on above: Performed By: #### L [id number] ####[facility] ([facility])[address] [place] [address] Erythrocyte distribution width (RBC) [Ratio] 13.8 % Normal 11.5-15.0 [facility] Comment on above: Performed By: #### L [id number] ####[facility] ([facility])[address] [place] [address] ERYTHROCYTE MEAN CORPUSCULAR HEMOGLOBIN CONCENTRATION (G/DL) BY AUTOMATED 36.4 g/dL High 32.0-35.0 [facility] Comment on above: Performed By: #### L [id number] ####[facility] ([facility])[address] [place] [address] Hematocrit (Bld) [Volume fraction] 18.7 % Low 39.0-55.0 [facility] Comment on above: Performed By: #### L [id number] ####[facility] ([facility] [address] Hemoglobin (Bld) [Mass/Vol] 6.8 g/dL Low 13.0-17.0 [facility] Comment on above: Performed By: #### L [id number] ####[facility] ([facility])[address] [place], [place] [address] IMMATURE PLATELET FRACTION % 3.8 % Normal 0.8-6.3 [facility] Comment on above: Performed By: #### L [id number] ####[facility] ([facility])[address] [place] [address] MCH (RBC) [Entitic mass] 33.0 pg Normal 27.0-33.0 [facility] Comment on above: Performed By: #### L [id number] ####[facility] ([facility])[address] [place] [address] MCV (RBC) [Entitic vol] 90.8 fL Normal 82.0-98.0 [facility] Comment on above: Performed By: #### L [id number] ####[facility] ([facility])[address] [place] [address] PLATELETS (10*3/UL) IN BLOOD AUTOMATED COUNT 53 10*3/uL Low 150-400 [facility] Comment on above: Performed By: #### L [id number] ####[facility] ([facility] [place] [address] RBC (Bld) [#/Vol] 2.06 10*6/uL Low 4.20-5.70 [facility] Comment on above: Performed By: #### L [id number] ####[facility] ([facility])[address] [place] [address] WBC (Bld) [#/Vol] 4.70 10*3/uL Normal 4.00-10.60 [facility] Comment on above: Performed By: #### L [id number] ####[facility] ([facility])[address] [place] [address] CT ABDOMEN PELVIS WO IV CONT RASTon 11-05-2022 CT ABDOMEN PELVIS WO IV CONTRAST Normal [facility] HEMOGLOBIN AND HEMATOCRIT, B LOODon 11-05-2022 Hematocrit (Bld) [Volume fraction] 20.0 % Low 39.0-55.0 [facility] Comment on above: Performed By: #### L [id number] ####[facility] ([facility])[address] [place] [address] Hemoglobin (Bld) [Mass/Vol] 7.2 g/dL Low 13.0-17.0 [facility] Comment on above: Performed By: #### L [id number] ####[facility] ([facility])[address] [place] [address] HEPARIN LEVELon 11-05-2022 HEPARIN UNFRACTIONATED (U/ML) IN PPP BY CHROMOGENIC METHOD <0.10 Invalid Interpretation Code 0.3-0.7 [facility] Comment on above: Result Comment: Masha roxaban and Apixaban will interfere with the anti Xa assay used to monitor UFH and LMWH. Performed By: #### L [id number] ####[facility] ([facility])[address] [place] [address] MAGNESIUMon 11-05-2022 Magnesium [Mass/Vol] 1.5 mg/dL Low 1.9-2.7 [facility] Comment on above: Performed By: #### L [id number] ####[facility] ([facility])[address] [place] [address] PHOSPHORUSon 11-05-2022 Magnesium [Mass/Vol] 1.6 mg/dL Low 2.5-5.0 [facility] Comment on above: Performed By: #### L [id number] ####[facility] ([facility])[address] [place] [address] POCT GLUCOSE METER UNSOLICIT ED RESULTSon 11-05-2022 Glucose [Mass/Vol] 145 mg/dL High 70-105 [facility] Comment on above: Result Comment: efratonie esparza Performed By: #### L [id number] ####[facility] ([facility])[address] [place] [address] Glucose [Mass/Vol] 142 mg/dL High 70-105 [facility] Comment on above: Result Comment: efratonie esparza Performed By: #### L [id number] ####[facility] ([facility])[address] [place] [address] Glucose [Mass/Vol] 60 mg/dL Low 70-105 [facility] Comment on above: Result Comment: abemily woods Performed By: #### L [id number] ####[facility] ([facility])[address] [place] [address] Glucose [Mass/Vol] 107 mg/dL High 70-105 [facility] Comment on above: Result Comment: [email or web address] Performed By: #### L [id number] ####[facility] ([facility])[address] [place] [address] APTTon 11-04-2022 ACTIVATED PARTIAL THROMBOPLASTIN TIME IN PPP BY COAGULATION ASSAY 32.2 Seconds Normal 25.0-35.0 [facility] Comment on above: Performed By: #### L [id number] ####[facility] ([facility])[address] [place] [address] ARTERIAL BLOOD GAS WITH IONI ZED CALCIUMon 11-04-2022 Base excess Calc (Bld) [Moles/Vol] -4.4000 mmol/L Low -2.0-3.0 [facility] Comment on above: Performed By: #### L [id number] ####[facility] RESPIRATORY [id number] [place] [address] [place] CALCIUM IONIZED (MMOL/L) IN BLOOD 1.17 mmol/L Normal 1.15-1.33 [facility] Comment on above: Performed By: #### L [id number] ####[facility] RESPIRATORY [id number] [place] [address] [facility] CO2 (Bld) [Partial pressure] 35 mm[Hg] Normal 35-48 [facility] Comment on above: Performed By: #### L [id number] ####[facility] RESPIRATORY [id number] [place] [address] [facility] HCO3 (Bld) [Moles/Vol] 20.2 mmol/L Low 21.0-28.0 [facility] Comment on above: Performed By: #### L [id number] ####[facility] RESPIRATORY [id number] [place] [address] [facility] Oxygen (Bld) [Partial pressure] 93 mm[Hg] Normal 83-100 [facility] Comment on above: Performed By: #### L [id number] ####[facility] RESPIRATORY [id number] [place] [address] [facility] OXYGEN SATURATION (%) IN ARTERIAL BLOOD 98.8 % High 94.0-98.0 [facility] Comment on above: Performed By: #### L [id number] ####[facility] RESPIRATORY [id number] [place] [address] [facility] pH (Bld) 7.37 [pH] Normal 7.35-7.45 [facility] Comment on above: Performed By: #### L [id number] ####[facility] RESPIRATORY [id number] [place] [address] [facility] SOURCE OF OXYGEN Room Air Normal [facility] Comment on above: Performed By: #### L [id number] ####[facility] RESPIRATORY [id number] [place] [address] [facility] BASIC METABOLIC PANELon 10-11 Anion gap [Moles/Vol] 5 mmol/L Low 7-20 [facility] Comment on above: Performed By: #### L [id number] ####[facility] HOSPITAL LAB (BEAKER)[id number] [place] [address] Calcium [Mass/Vol] 7.4 mg/dL Low 8.6-10.3 [facility] Comment on above: Performed By: #### L [id number] ####[facility] HOSPITAL LAB (BEAKER)[address] [place] [address] Chloride [Moles/Vol] 103 mmol/L Normal 98-107 [facility] Comment on above: Performed By: #### L [id number] ####[facility] (BEAKER)[address] [place] [address] CO2 [Moles/Vol] 22 mmol/L Normal 21-31 [facility] Comment on above: Performed By: #### L [id number] ####[facility] (BEAKER)[address] [place] [address] Creatinine [Mass/Vol] 0.98 mg/dL Normal 0.70-1.30 [facility] Comment on above: Performed By: #### L [id number] ####[facility] ([facility])[address] [place] [address] GLOMERULAR FILTRATION RATE ML/MIN/1.73 SQ M.PREDICTED 75.1 mL/min/1.73m*2 Normal >60.0 [facility] Comment on above: Result Comment: The [facility]???s estimated glomerular filtration rate (eGFR) will no longer include consideration of race in its calculation. The National Kidney Foundation???s eGFR Task Force developed new recommendations for the estimation of the glomerular filtration rate in the [place] They recommend immediate implementation of the new equation refit without the race variable in all laboratories because the calculation does not include race. In addition to not including race in the calculation and reporting, it included diversity in its development, and has acceptable performance characteristics and potential consequences that do not disproportionately affect any one group of individuals. Performed By: #### L [id number] ####[facility] (BEAKER)[address] [place] [address] Glucose [Mass/Vol] 145 mg/dL High 70-100 [facility] Comment on above: Performed By: #### L [id number] ####[facility] (BEAKER)[address] [place] [address] Potassium [Moles/Vol] 4.5 mmol/L Normal 3.5-5.1 [facility] Comment on above: Performed By: #### L [id number] ####[facility] (BEAKER)[address] [place] [address] Sodium [Moles/Vol] 130 mmol/L Low 136-145 [facility] Comment on above: Performed By: #### L [id number] ####[facility] ([facility] [place] [address] Urea nitrogen [Mass/Vol] 23 mg/dL Normal 7-25 [facility] Comment on above: Performed By: #### L [id number] ####[facility] ([facility])[address] [place] [address] UREA NITROGEN/CREATININE (MASS RATIO) IN SER/PLAS 23.47 Normal [facility] Comment on above: Performed By: #### L [id number] ####[facility] ([facility] [place] [address] Anion gap [Moles/Vol] 8 mmol/L Normal 7-20 [facility] Comment on above: Performed By: #### L [id number] ####[facility] (BEAKER)[address] [place] [address] Calcium [Mass/Vol] 7.4 mg/dL Low 8.6-10.3 [facility] Comment on above: Performed By: #### L [id number] ####[facility] (BEAKER)[address] [place] [address] Chloride [Moles/Vol] 107 mmol/L Normal 98-107 [facility] Comment on above: Performed By: #### L [id number] ####[facility] (BEAKER)[address] [place] [address] CO2 [Moles/Vol] 19 mmol/L Low 21-31 [facility] Comment on above: Performed By: #### L [id number] ####[facility] (BEAKER)[address] [place] [address] Creatinine [Mass/Vol] 0.73 mg/dL Normal 0.70-1.30 [facility] Comment on above: Performed By: #### L [id number] ####[facility] ([facility])[address] [place] [address] GLOMERULAR FILTRATION RATE ML/MIN/1.73 SQ M.PREDICTED 90.7 mL/min/1.73m*2 Normal >60.0 [facility] Comment on above: Result Comment: The [facility]???s estimated glomerular filtration rate (eGFR) will no longer include consideration of race in its calculation. The National Kidney Foundation???s eGFR Task Force developed new recommendations for the estimation of the glomerular filtration rate in the [place] They recommend immediate implementation of the new equation refit without the race variable in all laboratories because the calculation does not include race. In addition to not including race in the calculation and reporting, it included diversity in its development, and has acceptable performance characteristics and potential consequences that do not disproportionately affect any one group of individuals. Performed By: #### L [id number] ####[facility] ([facility])[address] [place] [address] Glucose [Mass/Vol] 220 mg/dL High 70-100 [facility] Comment on above: Performed By: #### L [id number] ####[facility] ([facility])[address] [place] [address] Potassium [Moles/Vol] 4.3 mmol/L Normal 3.5-5.1 [facility] Comment on above: Performed By: #### L [id number] ####[facility] ([facility])[address] [place] [address] Sodium [Moles/Vol] 134 mmol/L Low 136-145 [facility] Comment on above: Performed By: #### L [id number] ####[facility] ([facility])[address] [place] [address] Urea nitrogen [Mass/Vol] 19 mg/dL Normal 7-25 [facility] Comment on above: Performed By: #### L [id number] ####[facility] ([facility] [place] [address] UREA NITROGEN/CREATININE (MASS RATIO) IN SER/PLAS 26.03 Normal [facility] Comment on above: Performed By: #### L [id number] ####[facility] ([facility])[address] [address] CBCon 11-04-2022 Erythrocyte distribution width (RBC) [Ratio] 13.6 % Normal 11.5-15.0 [facility] Comment on above: Performed By: #### L [id number] ####[facility] ([facility])[address] [address] ERYTHROCYTE MEAN CORPUSCULAR HEMOGLOBIN CONCENTRATION (G/DL) BY AUTOMATED 35.2 g/dL High 32.0-35.0 [facility] Comment on above: Performed By: #### L [id number] ####[facility] ([facility])[address] [place] [address] Hematocrit (Bld) [Volume fraction] 27.3 % Low 39.0-55.0 [facility] Comment on above: Performed By: #### L [id number] ####[facility] ([facility])[address] [place] [address] Hemoglobin (Bld) [Mass/Vol] 9.6 g/dL Low 13.0-17.0 [facility] Comment on above: Performed By: #### L [id number] ####[facility] ([facility])[address] [place] [address] IMMATURE PLATELET FRACTION % 3.3 % Normal 0.8-6.3 [facility] Comment on above: Performed By: #### L [id number] ####[facility] ([facility])[address] [place] [address] MCH (RBC) [Entitic mass] 32.3 pg Normal 27.0-33.0 [facility] Comment on above: Performed By: #### L [id number] ####[facility] ([facility] [place] [address] MCV (RBC) [Entitic vol] 91.9 fL Normal 82.0-98.0 [facility] Comment on above: Performed By: #### L [id number] ####[facility] ([facility])[address] [place] [address] PLATELETS (10*3/UL) IN BLOOD AUTOMATED COUNT 110 10*3/uL Low 150-400 [facility] Comment on above: Performed By: #### L [id number] ####[facility] ([facility])[address] [place] [address] RBC (Bld) [#/Vol] 2.97 10*6/uL Low 4.20-5.70 [facility] Comment on above: Performed By: #### L [id number] ####[facility] ([facility])[address] [place] [address] WBC (Bld) [#/Vol] 11.49 10*3/uL High 4.00-10.60 [facility] Comment on above: Performed By: #### L [id number] ####[facility] ([facility])[address] [place] [address] CONSULTon 11-04-2022 CONSULT Normal [facility] CREATININE, URINE, RANDOMon 11-04-2022 Creatinine (U) [Mass/Vol] 131.0 mg/dL Normal 26-299 [facility] Comment on above: Performed By: #### L [id number] ####[facility] ([facility])[address] [place] [address] HEMOGLOBIN AND HEMATOCRIT, B LOODon 11-04-2022 Hematocrit (Bld) [Volume fraction] 19.6 % Low 39.0-55.0 [facility] Comment on above: Performed By: #### L [id number] ####[facility] ([facility] [place] [address] Hemoglobin (Bld) [Mass/Vol] 7.1 g/dL Low 13.0-17.0 [facility] Comment on above: Performed By: #### L [id number] ####[facility] ([facility])[address] [place] [address] Hematocrit (Bld) [Volume fraction] 23.5 % Low 39.0-55.0 [facility] Comment on above: Performed By: #### L [id number] ####[facility] ([facility])[address] [place] [address] Hemoglobin (Bld) [Mass/Vol] 8.4 g/dL Low 13.0-17.0 [facility] Comment on above: Performed By: #### L [id number] ####[facility] ([facility])[address] [place] [address] HEPARIN LEVELon 11-04-2022 HEPARIN UNFRACTIONATED (U/ML) IN PPP BY CHROMOGENIC METHOD <0.10 Invalid Interpretation Code 0.3-0.7 [facility] Comment on above: Result Comment: Masha roxaban and Apixaban will interfere with the anti Xa assay used to monitor UFH and LMWH. Performed By: #### L [id number] ####[facility] ([facility])[address] [place] [address] NURSNOTEon 11-04-2022 NURSNOTE Normal [facility] NURSNOTE Normal [facility] NURSNOTE Normal [facility] OPNOTEon 11-04-2022 OPNOTE Normal [facility] POCT GLUCOSE METER UNSOLICIT ED RESULTSon 11-04-2022 Glucose [Mass/Vol] 159 mg/dL High 70-105 [facility] Comment on above: Result Comment: dnuc kol Performed By: #### L [id number] ####[facility] ([facility])[address] [place] [address] Glucose [Mass/Vol] 234 mg/dL High 70-105 [facility] Comment on above: Result Comment: dnuc kol Performed By: #### L [id number] ####[facility] ([facility])[address] [place] [address] PROTIME-INRon 01-26-2023 INR IN PPP BY COAGULATION ASSAY 1.38 High 0.90-1.10 [facility] Comment on above: Result Comment: ACCC P RECOMMENDED INR FOR WARFARIN THERAPY CONDITION INRPROPHYLAXIS OF VENOUS THROMBOSIS 2-3(HIGH-RISK SURGERY)TREATMENT OF VENOUS THROMBOSIS 2-3TREATMENT OF PULMONARY EMBOLISM 2-3PREVENTION OF SYSTEMIC EMBOLISM: 2-3 ACUTE MYOCARDIAL INFARCTION TISSUE HEART VALVES VALVULAR HEART DISEASE ATRIAL FIBRILLATION RECURRENT SYSTEMIC EMBOLISMMECHANICAL HEART VALVE 2.5-3.5 FROM: ORAL ANTICOAGULANTS. MECHANISM OF ACTION, CLINICAL EFFECTIVENESS, AND OPTIMAL THERAPEUTIC RANGE. CHEST 1995;108:231S-246S. Performed By: #### L [id number] ####[facility] [employer])[address] [place] [address] PROTHROMBIN TIME (PT) IN PPP BY COAGULATION ASSAY 16.9 Seconds High 12.3-14.8 [facility] Comment on above: Performed By: #### L [id number] ####[facility] [employer])[address] [place] [address] SODIUM, URINE, RANDOMon 10-11 Sodium (U) [Moles/Vol] 24 mmol/L [facility] Comment on above: Performed By: #### L [id number] ####[facility] [employer])[address] [place] [address] URINALYSISon 11-04-2022 BILIRUBIN, TOTAL PRESENCE IN URINE Negative Normal Negative [facility] Comment on above: Order Comment: 0000 Performed By: #### L [id number] ####[facility] [employer])[address] [place] [address] Clarity (U) Clear Normal Clear [facility] Comment on above: Order Comment: 0000 Performed By: #### L [id number] ####[facility] (BEAKER)[address] [place] [address] Color (U) Yellow Normal Yellow, Dark Yellow, Straw [facility] Comment on above: Order Comment: 0000 Performed By: #### L [id number] ####[facility] (BEAKER)[address] [place] [address] Glucose (U) [Mass/Vol] Negative Normal Negative [facility] Comment on above: Order Comment: 0000 Performed By: #### L [id number] ####[facility] ([facility])[address] [place] [address] HEMOGLOBIN PRESENCE IN URINE Large Abnormal Negative [facility] Comment on above: Order Comment: 0000 Performed By: #### L [id number] ####[facility] ([facility])[address] [place] [address] Ketones Ql (U) Negative Normal Negative [facility] Comment on above: Order Comment: 0000 Performed By: #### L [id number] ####[facility] ([facility])[address] [place] [address] LEUKOCYTE ESTERASE PRESENCE IN URINE BY TEST STRIP Negative Normal Negative [facility] Comment on above: Order Comment: 0000 Performed By: #### L [id number] ####[facility] (BEAKER)[address] [place] [address] NITRITE PRESENCE IN URINE Negative Normal Negative [facility] Comment on above: Order Comment: 0000 Performed By: #### L [id number] ####[facility] (BEAKER)[address] [place] [address] pH (U) 5.5 [pH] Normal 5.0-8.0 [facility] Comment on above: Order Comment: 0000 Performed By: #### L [id number] ####[facility] (BEAKER)[address] [place] [address] Protein (U) [Mass/Vol] 30 mg/dL Abnormal Negative [facility] Comment on above: Order Comment: 0000 Performed By: #### L [id number] ####[facility] ([facility])[address] [place] [address] Specific gravity (U) [Rel density] 1.026 High 1.015-1.020 [facility] Comment on above: Order Comment: 0000 Performed By: #### L [id number] ####[facility] ([facility])[address] [place] [address] UROBILINOGEN (EU/DL) IN URINE 0.2 EU/dL Normal Negative [facility] Comment on above: Order Comment: 0000 Performed By: #### L [id number] ####[facility] ([facility])[address] [place] [address] URINALYSIS MICROSCOPICon CASTS IN URINE Present Abnormal None Seen [facility] Comment on above: Performed By: #### L [id number] ####[facility] ([facility])[address] [place] [address] CRYSTALS IN URINE Normal [facility] Comment on above: Performed By: #### L [id number] ####[facility] ([facility])[address] [place] [address] GRANULAR CASTS (#/LPF) IN URINE 1 LPF High <1 [facility] Comment on above: Performed By: #### L [id number] ####[facility] ([facility])[address] [place] [address] HYALINE CASTS /LPF IN URINE SEDIMENT BY MICROSCOPY 10 /LPF High <1 [facility] Comment on above: Performed By: #### L [id number] ####[facility] ([facility])[address] [place] [address] MUCUS (#/HPF) IN URINE SEDIMENT Few Normal None Seen, Occasional, Few [facility] Comment on above: Performed By: #### L [id number] ####[facility] ([facility])[address] [place] [address] RBC (#/HPF) IN URINE SEDIMENT >100 Abnormal None Seen [facility] Comment on above: Performed By: #### L [id number] ####[facility] ([facility])[address] [place] [address] SQUAMOUS EPITHELIAL CELLS (#/HPF) IN URINE SEDIMENT None Seen Normal None Seen, Occasional [facility] Comment on above: Performed By: #### L [id number] ####[facility] ([facility])[address] [place] [address] WBC (LEUKOCYTE) (#/HPF) IN URINE SEDIMENT 21-50 Abnormal None Seen [facility] Comment on above: Performed By: #### L [id number] ####[facility] ([facility])[address] [place] [address] ANESon 11-03-2022 ANES Normal [facility] ANES Normal [facility] APTTon 11-03-2022 ACTIVATED PARTIAL THROMBOPLASTIN TIME IN PPP BY COAGULATION ASSAY >200.0 Critically high 25.0-35.0 [facility] Comment on above: Performed By: #### L [id number] ####[facility] ([facility])[address] [place] [address] ACTIVATED PARTIAL THROMBOPLASTIN TIME IN PPP BY COAGULATION ASSAY >200.0 Critically high 25.0-35.0 [facility] Comment on above: Performed By: #### L [id number] ####[facility] ([facility])[address] [place] [address] ARTERIAL BLOOD GAS WITH CO-O XIMETRYon 11-03-2022 Base excess Calc (Bld) [Moles/Vol] -2.8000 mmol/L Low -2.0-3.0 [facility] Comment on above: Performed By: #### L [id number] ####[facility] [id number] [place] [address] [place] CARBOXYHEMOGLOBIN/HEMO GLOBIN TOTAL % IN BLOOD 1.8 % Normal 0.0-3.0 [facility] Comment on above: Performed By: #### L [id number] ####[facility] [id number] [place] [address] [place] CO2 (Bld) [Partial pressure] 36 mm[Hg] Normal 35-48 [facility] Comment on above: Performed By: #### L [id number] ####[facility] [id number] [place] [address] [place] DEOXYGENATED HEMOGLOBIN IN BLOOD 0.0 % Low 1-5 [facility] Comment on above: Performed By: #### L [id number] ####[facility] [id number] [place] [address] [place] HCO3 (Bld) [Moles/Vol] 21.8 mmol/L Normal 21.0-28.0 [facility] Comment on above: Performed By: #### L [id number] ####[facility] [id number] [place] [address] [place] Hemoglobin (Bld) [Mass/Vol] 8.9 g/dL Low 11.7-17.4 [facility] Comment on above: Performed By: #### L [id number] ####[facility] [id number] [place] [address] [place] METHEMOGLOBIN/100 IN BLOOD 0.4 % Normal 0.0-1.5 [facility] Comment on above: Performed By: #### L [id number] ####[facility] [id number] [place] [address] [place] Oxygen (Bld) [Partial pressure] 217 mm[Hg] High 83-100 [facility] Comment on above: Performed By: #### L [id number] ####[facility] [id number] [place] [address] [place] OXYGEN SATURATION (%) IN ARTERIAL BLOOD 100.0 % High 94.0-98.0 [facility] Comment on above: Performed By: #### L [id number] ####[facility] [id number] [place] [address] [place] OXYGENATED HEMOGLOBIN IN BLOOD 97.8 % High 90.0-95.0 [facility] Comment on above: Performed By: #### L [id number] ####[facility] [id number] [place] [address] [facility] pH (Bld) 7.39 [pH] Normal 7.35-7.45 [facility] Comment on above: Performed By: #### L [id number] ####[facility] [id number] [place] [address] [facility] SOURCE OF OXYGEN Vent Normal [facility] Comment on above: Performed By: #### L [id number] ####[facility] [id number] [place] [address] [facility] Base excess Calc (Bld) [Moles/Vol] -1.4000 mmol/L Normal -2.0-3.0 [facility] Comment on above: Performed By: #### L [id number] ####[facility] [id number] [place] [address] [facility] CARBOXYHEMOGLOBIN/HEMO GLOBIN TOTAL % IN BLOOD 1.4 % Normal 0.0-3.0 [facility] Comment on above: Performed By: #### L [id number] ####[facility] [id number] [place] [address] [facility] CO2 (Bld) [Partial pressure] 35 mm[Hg] Normal 35-48 [facility] Comment on above: Performed By: #### L [id number] ####[facility] [id number] [place] [address] [facility] HCO3 (Bld) [Moles/Vol] 22.7 mmol/L Normal 21.0-28.0 [facility] Comment on above: Performed By: #### L [id number] ####[facility] [id number] [place] [address] [facility] Hemoglobin (Bld) [Mass/Vol] 9.6 g/dL Low 11.7-17.4 [facility] Comment on above: Performed By: #### L [id number] ####[facility] [id number] [place] [address] [place] METHEMOGLOBIN/100 IN BLOOD 0.9 % Normal 0.0-1.5 [facility] Comment on above: Performed By: #### L [id number] ####[facility] RES[facility] [id number] [address] Oxygen (Bld) [Partial pressure] 220 mm[Hg] High 83-100 [facility] Comment on above: Performed By: #### L [id number] ####[facility] [id number] [place] [address] OXYGENATED HEMOGLOBIN IN BLOOD 97.7 % High 90.0-95.0 [facility] Comment on above: Performed By: #### L [id number] ####[facility] [id number] [place] [address] pH (Bld) 7.42 [pH] Normal 7.35-7.45 [facility] Comment on above: Performed By: #### L [id number] ####[facility] [id number] [place] [address] ARTERIAL BLOOD GAS WITH IONI ZED CALCIUMon 11-03-2022 Base excess Calc (Bld) [Moles/Vol] -4.8000 mmol/L Low -2.0-3.0 [facility] Comment on above: Performed By: #### L [id number] ####[facility] [id number] [place] [address] CALCIUM IONIZED (MMOL/L) IN BLOOD 1.13 mmol/L Low 1.15-1.33 [facility] Comment on above: Performed By: #### L [id number] ####[facility] RES[facility] [id number] [address] Performed By: #### C ALCIUM, IONIZED ####[facility] [id number] [address] CO2 (Bld) [Partial pressure] 34 mm[Hg] Low 35-48 [facility] Comment on above: Performed By: #### L [id number] ####[facility] [id number] [place] [address] HCO3 (Bld) [Moles/Vol] 19.7 mmol/L Low 21.0-28.0 [facility] Comment on above: Performed By: #### L [id number] ####[facility] RES[facility] [id number] [place] [address] [facility] LPM 2 Normal [facility] Comment on above: Performed By: #### L [id number] ####[facility] [id number] [place] [address] [facility] Oxygen (Bld) [Partial pressure] 108 mm[Hg] High 83-100 [facility] Comment on above: Performed By: #### L [id number] ####[facility] [id number] [place] [address] [facility] OXYGEN SATURATION (%) IN ARTERIAL BLOOD 99.4 % High 94.0-98.0 [facility] Comment on above: Performed By: #### L [id number] ####[facility] [id number] [place] [address] [facility] pH (Bld) 7.37 [pH] Normal 7.35-7.45 [facility] Comment on above: Performed By: #### L [id number] ####[facility] RESPIRATORY [id number] [place] [address] [facility] SOURCE OF OXYGEN Nasal cannula Normal [facility] Comment on above: Performed By: #### L [id number] ####[facility] RESPIRATORY [id number] [place] [address] [facility] BASIC METABOLIC PANELon 10-11 Anion gap [Moles/Vol] 7 mmol/L Normal 7-20 [facility] Comment on above: Performed By: #### L [id number] ####[facility] HOSPITAL LAB (BEAKER)[id number] [place] [address] Calcium [Mass/Vol] 7.7 mg/dL Low 8.6-10.3 [facility] Comment on above: Performed By: #### L [id number] ####[facility] LAB (BEAKER)[address] [place] [address] Chloride [Moles/Vol] 108 mmol/L High 98-107 [facility] Comment on above: Performed By: #### L [id number] ####[facility] ([facility])[address] [place] [address] CO2 [Moles/Vol] 21 mmol/L Normal 21-31 [facility] Comment on above: Performed By: #### L [id number] ####[facility] ([facility])[address] [place] [address] Creatinine [Mass/Vol] 0.75 mg/dL Normal 0.70-1.30 [facility] Comment on above: Performed By: #### L [id number] ####[facility] ([facility])[address] [place] [address] GLOMERULAR FILTRATION RATE ML/MIN/1.73 SQ M.PREDICTED 89.7 mL/min/1.73m*2 Normal >60.0 [facility] Comment on above: Result Comment: The [facility]???s estimated glomerular filtration rate (eGFR) will no longer include consideration of race in its calculation. The National Kidney Foundation???s eGFR Task Force developed new recommendations for the estimation of the glomerular filtration rate in the [place] They recommend immediate implementation of the new equation refit without the race variable in all laboratories because the calculation does not include race. In addition to not including race in the calculation and reporting, it included diversity in its development, and has acceptable performance characteristics and potential consequences that do not disproportionately affect any one group of individuals. Performed By: #### L [id number] ####[facility] ([facility])[address] [place] [address] Glucose [Mass/Vol] 186 mg/dL High 70-100 [facility] Comment on above: Performed By: #### L [id number] ####[facility] ([facility])[address] [place] [address] Potassium [Moles/Vol] 3.9 mmol/L Normal 3.5-5.1 [facility] Comment on above: Performed By: #### L [id number] ####[facility] (BEAKER)[address] [place] [address] Sodium [Moles/Vol] 136 mmol/L Normal 136-145 [facility] Comment on above: Performed By: #### L [id number] ####[facility] (BEAKER)[address] [place] [address] Urea nitrogen [Mass/Vol] 15 mg/dL Normal 7-25 [facility] Comment on above: Performed By: #### L [id number] ####[facility] (BEAKER)[address] [place] [address] UREA NITROGEN/CREATININE (MASS RATIO) IN SER/PLAS 20.00 Normal [facility] Comment on above: Performed By: #### L [id number] ####[facility] (BEAKER)[address] [place] [address] Anion gap [Moles/Vol] 8 mmol/L Normal 7-20 [facility] Comment on above: Performed By: #### L [id number] ####[facility] (BEAKER)[address] [place] [address] Calcium [Mass/Vol] 9.2 mg/dL Normal 8.6-10.3 [facility] Comment on above: Performed By: #### L [id number] ####[facility] (BEAKER)[address] [place] [address] Chloride [Moles/Vol] 103 mmol/L Normal 98-107 [facility] Comment on above: Performed By: #### L [id number] ####[facility] (BEAKER)[address] [place] [address] CO2 [Moles/Vol] 26 mmol/L Normal 21-31 [facility] Comment on above: Performed By: #### L [id number] ####[facility] (BEAKER)[address] [place] [address] Creatinine [Mass/Vol] 0.98 mg/dL Normal 0.70-1.30 [facility] Comment on above: Performed By: #### L [id number] ####[facility] ([facility])[address] [place] [address] GLOMERULAR FILTRATION RATE ML/MIN/1.73 SQ M.PREDICTED 75.1 mL/min/1.73m*2 Normal >60.0 [facility] Comment on above: Result Comment: The [facility]???s estimated glomerular filtration rate (eGFR) will no longer include consideration of race in its calculation. The National Kidney Foundation???s eGFR Task Force developed new recommendations for the estimation of the glomerular filtration rate in the [place] They recommend immediate implementation of the new equation refit without the race variable in all laboratories because the calculation does not include race. In addition to not including race in the calculation and reporting, it included diversity in its development, and has acceptable performance characteristics and potential consequences that do not disproportionately affect any one group of individuals. Performed By: #### L [id number] ####[facility] ([facility])[address] [place] [address] Glucose [Mass/Vol] 142 mg/dL High 70-100 [facility] Comment on above: Performed By: #### L [id number] ####[facility] ([facility])[address] [place] [address] Potassium [Moles/Vol] 4.2 mmol/L Normal 3.5-5.1 [facility] Comment on above: Performed By: #### L [id number] ####[facility] ([facility])[address] [place] [address] Sodium [Moles/Vol] 137 mmol/L Normal 136-145 [facility] Comment on above: Performed By: #### L [id number] ####[facility] ([facility] [place] [address] Urea nitrogen [Mass/Vol] 20 mg/dL Normal 7-25 [facility] Comment on above: Performed By: #### L [id number] ####[facility] ([facility] [place] [address] UREA NITROGEN/CREATININE (MASS RATIO) IN SER/PLAS 20.41 Normal [facility] Comment on above: Performed By: #### L [id number] ####[facility] HOSP[facility] LAB ([facility]AKER)[address] [place] [address] CALCIUM, IONIZEDon CALCIUM IONIZED (MMOL/L) IN BLOOD 1.23 mmol/L Normal 1.15-1.33 [facility] Comment on above: Performed By: #### C ALCIUM, IONIZED ####[facility] RESPIRATORY [id number] [place] [address] [place] CBCon 11-03-2022 Erythrocyte distribution width (RBC) [Ratio] 13.5 % Normal 11.5-15.0 [facility] Comment on above: Performed By: #### L [id number] ####[facility] (BEAKER)[address] [place] [address] ERYTHROCYTE MEAN CORPUSCULAR HEMOGLOBIN CONCENTRATION (G/DL) BY AUTOMATED 35.4 g/dL High 32.0-35.0 [facility] Comment on above: Performed By: #### L [id number] ####[facility] (BEAKER)[address] [place] [address] Hematocrit (Bld) [Volume fraction] 37.6 % Low 39.0-55.0 [facility] Comment on above: Performed By: #### L [id number] ####[facility] (BEAKER)[address] [place] [address] Hemoglobin (Bld) [Mass/Vol] 13.3 g/dL Normal 13.0-17.0 [facility] Comment on above: Performed By: #### L [id number] ####[facility] (BEAKER)[address] [place] [address] IMMATURE PLATELET FRACTION % 4.3 % Normal 0.8-6.3 [facility] Comment on above: Performed By: #### L [id number] ####[facility] (BEAKER)[address] [place] [address] MCH (RBC) [Entitic mass] 32.5 pg Normal 27.0-33.0 [facility] Comment on above: Performed By: #### L [id number] ####[facility] (BEAKER)[address] [place] [address] MCV (RBC) [Entitic vol] 91.9 fL Normal 82.0-98.0 [facility] Comment on above: Performed By: #### L [id number] ####[facility] (BEAKER)[address] [place] [address] PLATELETS (10*3/UL) IN BLOOD AUTOMATED COUNT 76 10*3/uL Low 150-400 [facility] Comment on above: Performed By: #### L [id number] ####[facility] ([facility] [address] RBC (Bld) [#/Vol] 4.09 10*6/uL Low 4.20-5.70 [facility] Comment on above: Performed By: #### L [id number] ####[facility] ([facility] [address] WBC (Bld) [#/Vol] 5.36 10*3/uL Normal 4.00-10.60 [facility] Comment on above: Performed By: #### L [id number] ####[facility] (BEAKER)[address] [address] CBC WITH AUTO DIFFERENTIALon 11-03-2022 Erythrocyte distribution width (RBC) [Ratio] 13.7 % Normal 11.5-15.0 [facility] Comment on above: Performed By: #### L [id number] ####[facility] (BEAKER)[address] [place], [place] [address] ERYTHROCYTE MEAN CORPUSCULAR HEMOGLOBIN CONCENTRATION (G/DL) BY AUTOMATED 35.3 g/dL High 32.0-35.0 [facility] Comment on above: Performed By: #### L [id number] ####[facility] (BEAKER)[address] [place], [place] [address] Hematocrit (Bld) [Volume fraction] 23.5 % Low 39.0-55.0 [facility] Comment on above: Performed By: #### L [id number] ####[facility] ([facility] [place] [address] Hemoglobin (Bld) [Mass/Vol] 8.3 g/dL Low 13.0-17.0 [facility] Comment on above: Performed By: #### L [id number] ####[facility] ([facility])[address] [address] IMMATURE PLATELET FRACTION % 4.6 % Normal 0.8-6.3 [facility] Comment on above: Performed By: #### L [id number] ####[facility] ([facility])[address] [address] MCH (RBC) [Entitic mass] 33.1 pg High 27.0-33.0 [facility] Comment on above: Performed By: #### L [id number] ####[facility] ([facility])[address] [address] MCV (RBC) [Entitic vol] 93.6 fL Normal 82.0-98.0 [facility] Comment on above: Performed By: #### L [id number] ####[facility] ([facility])[address] [place] [address] NRBC (PER 100 WBCS) BY AUTOMATED COUNT 0.0 % Normal 0.0-0.0 [facility] Comment on above: Performed By: #### L [id number] ####[facility] ([facility])[address] [place] [address] PLATELETS (10*3/UL) IN BLOOD AUTOMATED COUNT 93 10*3/uL Low 150-400 [facility] Comment on above: Performed By: #### L [id number] ####[facility] ([facility])[address] [place] [address] RBC (Bld) [#/Vol] 2.51 10*6/uL Low 4.20-5.70 [facility] Comment on above: Performed By: #### L [id number] ####[facility] (BE[facility]ER)[address] [place] [address] WBC (Bld) [#/Vol] 12.09 10*3/uL High 4.00-10.60 [facility] Comment on above: Performed By: #### L [id number] ####[facility] (BEAKER)[address] [place] [address] Erythrocyte distribution width (RBC) [Ratio] 13.6 % Normal 11.5-15.0 [facility] Comment on above: Performed By: #### L [id number] ####[facility] (BEAKER)[address] [place] [address] ERYTHROCYTE MEAN CORPUSCULAR HEMOGLOBIN CONCENTRATION (G/DL) BY AUTOMATED 34.8 g/dL Normal 32.0-35.0 [facility] Comment on above: Performed By: #### L [id number] ####[facility] ([facility])[address] [place] [address] Hematocrit (Bld) [Volume fraction] 25.0 % Low 39.0-55.0 [facility] Comment on above: Performed By: #### L [id number] ####[facility] (BEAKER)[address] [place], [place] [address] Hemoglobin (Bld) [Mass/Vol] 8.7 g/dL Low 13.0-17.0 [facility] Comment on above: Performed By: #### L [id number] ####[facility] (BEAKER)[address] [place] [address] IMMATURE PLATELET FRACTION % 4.2 % Normal 0.8-6.3 [facility] Comment on above: Performed By: #### L [id number] ####[facility] (BEAKER)[address] [place], [place] [address] MCH (RBC) [Entitic mass] 32.7 pg Normal 27.0-33.0 [facility] Comment on above: Performed By: #### L [id number] ####[facility] (BEAKER)[address] [place] [address] MCV (RBC) [Entitic vol] 94.0 fL Normal 82.0-98.0 [facility] Comment on above: Performed By: #### L [id number] ####[facility] ([facility])[address] [address] NRBC (PER 100 WBCS) BY AUTOMATED COUNT 0.0 % Normal 0.0-0.0 [facility] Comment on above: Performed By: #### L [id number] ####[facility] ([facility])[address] [place] [address] PLATELETS (10*3/UL) IN BLOOD AUTOMATED COUNT 53 10*3/uL Low 150-400 [facility] Comment on above: Performed By: #### L [id number] ####[facility] ([facility])[address] [place] [address] RBC (Bld) [#/Vol] 2.66 10*6/uL Low 4.20-5.70 [facility] Comment on above: Performed By: #### L [id number] ####[facility] ([facility])[address] [place] [address] WBC (Bld) [#/Vol] 4.28 10*3/uL Normal 4.00-10.60 [facility] Comment on above: Performed By: #### L [id number] ####[facility] ([facility])[address] [place] [address] COMPREHENSIVE METABOLIC PANE Sridhar 11-03-2022 Albumin [Mass/Vol] 3.3 g/dL Low 3.5-5.7 [facility] Comment on above: Performed By: #### L [id number] ####[facility] ([facility])[address] [place] [address] ALP [Catalytic activity/Vol] 31 U/L Low 34-104 [facility] Comment on above: Performed By: #### L [id number] ####[facility] ([facility])[address] [place] [address] ALT [Catalytic activity/Vol] 38 U/L Normal 7-52 [facility] Comment on above: Performed By: #### L [id number] ####[facility] ([facility] [place] [address] Anion gap [Moles/Vol] 8 mmol/L Normal 7-20 [facility] Comment on above: Performed By: #### L [id number] ####[facility] ([facility])[address] [place] [address] AST [Catalytic activity/Vol] 22 U/L Normal 13-39 [facility] Comment on above: Performed By: #### L [id number] ####[facility] ([facility])[address] [place] [address] Bilirubin [Mass/Vol] 1.1 mg/dL High 0.3-1.0 [facility] Comment on above: Performed By: #### L [id number] ####[facility] ([facility])[address] [place] [address] Calcium [Mass/Vol] 7.7 mg/dL Low 8.6-10.3 [facility] Comment on above: Performed By: #### L [id number] ####[facility] ([facility])[address] [place] [address] Chloride [Moles/Vol] 106 mmol/L Normal 98-107 [facility] Comment on above: Performed By: #### L [id number] ####[facility] ([facility] [place] [address] CO2 [Moles/Vol] 21 mmol/L Normal 21-31 [facility] Comment on above: Performed By: #### L [id number] ####[facility] ([facility] [place] [address] Creatinine [Mass/Vol] 0.67 mg/dL Low 0.70-1.30 [facility] Comment on above: Performed By: #### L [id number] ####[facility] ([facility])[address] [place] [address] GLOMERULAR FILTRATION RATE ML/MIN/1.73 SQ M.PREDICTED 94.0 mL/min/1.73m*2 Normal >60.0 [facility] Comment on above: Result Comment: [facility]???s estimated glomerular filtration rate (eGFR) will no longer include consideration of race in its calculation. The National Kidney Foundation???s eGFR Task Force developed new recommendations for the estimation of the glomerular filtration rate in the [place] They recommend immediate implementation of the new equation refit without the race variable in all laboratories because the calculation does not include race. In addition to not including race in the calculation and reporting, it included diversity in its development, and has acceptable performance characteristics and potential consequences that do not disproportionately affect any one group of individuals. Performed By: #### L [id number] ####[facility] ([facility])[address] [place] [address] Glucose [Mass/Vol] 221 mg/dL High 70-100 [facility] Comment on above: Performed By: #### L [id number] ####[facility] ([facility])[address] [place] [address] Potassium [Moles/Vol] 4.0 mmol/L Normal 3.5-5.1 [facility] Comment on above: Performed By: #### L [id number] ####[facility] ([facility])[address] [place] [address] Performed By: #### P OTASSIUM, WHOLE BLOOD ####[facility] RESPIRATORY [id number] [place] [address] [place] Protein [Mass/Vol] 4.9 g/dL Low 6.0-8.3 [facility] Comment on above: Performed By: #### L [id number] ####[facility] ([facility])[address] [address] Sodium [Moles/Vol] 135 mmol/L Low 136-145 [facility] Comment on above: Performed By: #### L [id number] ####[facility] ([facility])[address] [place] [address] Urea nitrogen [Mass/Vol] 16 mg/dL Normal 7-25 [facility] Comment on above: Performed By: #### L [id number] ####[facility] ([facility])[address] [place] [address] UREA NITROGEN/CREATININE (MASS RATIO) IN SER/PLAS 23.88 Normal [facility] Comment on above: Performed By: #### L [id number] ####[facility] ([facility])[address] [place] [address] HEPARIN LEVELon 11-03-2022 HEPARIN UNFRACTIONATED (U/ML) IN PPP BY CHROMOGENIC METHOD 0.39 IU/mL Normal 0.3-0.7 [facility] Comment on above: Result Comment: Masha roxaban and Apixaban will interfere with the anti Xa assay used to monitor UFH and LMWH. Performed By: #### L [id number] ####[facility] ([facility])[address] [place] [address] HEPARIN UNFRACTIONATED (U/ML) IN PPP BY CHROMOGENIC METHOD 0.51 IU/mL Normal 0.3-0.7 [facility] Comment on above: Result Comment: Wells roxaban and Apixaban will interfere with the anti Xa assay used to monitor UFH and LMWH. Performed By: #### L [id number] ####[facility] ([facility])[address] [place] [address] HISTOLOGY - TISSUE EXAMon LAB AP CASE REPORT Normal [facility] Comment on above: Order Comment: Pre-o p diagnosis:Critical limb ischemia of left lower extremity (CMS/HCC) [I70.222]PAD (peripheral artery disease) (CMS/HCC) [I73.9]Encounter for pre-operative examination [Z01.818] Result Comment: Surg ical Pathology Case: [id number] Provider: Erwin Hurd MD Collected: 11/03/2022 1231Ordering Location: [facility] Main Operating Room Received: 11/04/2022 0718Pathologist: MONICA Alanpecimens: A) - Femoral Artery, RIGHT GROIN PLAQUE B) - Femoral Artery, LEFT GROIN PLAQUE Performed By: #### L [id number] ####[facility] (BEAKER)[address] [place] [address] LAB AP CLINICAL INFORMATION Normal [facility] Comment on above: Order Comment: Pre-o p diagnosis:Critical limb ischemia of left lower extremity (CMS/HCC) [I70.222]PAD (peripheral artery disease) (CMS/HCC) [I73.9]Encounter for pre-operative examination [Z01.818] Result Comment: Post -Op [id number] - Critical limb ischemia of left lower extremity (CMS/HCC) [ICD-10-CM]I73.9 - PAD (peripheral artery disease) (CMS/HCC) [ICD-10-CM]Z01.818 - Encounter for pre-operative examination [ICD-10-CM] Performed By: #### L [id number] ####[facility] (BEAKER)[address] [place] [address] LAB AP GROSS DESCRIPTION Normal [facility] Comment on above: Order Comment: Pre-o p diagnosis:Critical limb ischemia of left lower extremity (CMS/HCC) [I70.222]PAD (peripheral artery disease) (CMS/HCC) [I73.9]Encounter for pre-operative examination [Z01.818] Result Comment: A. F emoral Artery.Part A is received in formalin labeled Max Sanchez and right groin plaque. It consists of 4 lui-yellow, tubular, hardened, possible plaque fragments ranging from 1.1 x 0.6 x 0.6 cm to 3.9 x 1.1 x 0.9 cm. The specimen is serially sectioned revealing the cut surface is yellow, focally friable, and moderately calcified. [employer] Supervisor sections of the specimen are submitted in 1 cassette following decalcification.Shadia Mueller, Pathologists' Lead Designer studentDamichael Valencia, Pathologists' AssistantB. Femoral Artery.Part B is received in formalin labeled Max Sanchez and left groin plaque. It consists of 4 lui hardened tubular possible plaque fragments and 2 lui rubbery irregular fragments ranging from 1.1 x 0.7 x 0.4 cm to 3.6 x 1.1 x 0.8 cm. The specimen is serially sectioned revealing the cut surface yellow-lui, moderately friable, and focally calcified. [employer] Supervisor sections are submitted in 1 cassette following decalcification.Shadia Mueller, Pathologists' Lead Designer Tova Valencia, Pathologists' Lead Designer Performed By: #### L [id number] ####[facility] ([facility])[address] [place] [address] LAB AP MICROSCOPIC DESCRIPTION Microscopic examination performed. [facility] Comment on above: Order Comment: Pre-o p diagnosis:Critical limb ischemia of left lower extremity (CMS/HCC) [I70.222]PAD (peripheral artery disease) ([facility]/HCC) [I73.9]Encounter for pre-operative examination [Z01.818] Performed By: #### L [id number] ####[facility] ([facility])[address] [place] [address] LAB AP REPORT FINAL DIAGNOSIS NARRATIVE [facility] Comment on above: Order Comment: Pre-o p diagnosis:Critical limb ischemia of left lower extremity (CMS/HCC) [I70.222]PAD (peripheral artery disease) (CMS/HCC) [I73.9]Encounter for pre-operative examination [Z01.818] Result Comment: A. A rtery, femoral, right, endarterectomy:Atheromatous plaque with calcification.B. Artery, femoral, left ,endarterectomy:Artheromatous plaque with calcification. Performed By: #### L [id number] ####[facility] ([facility])[address] [place] [address] HPon 11-03-2022 [facility] LACTIC ACID WITH 4 HOUR REFL EXon 11-03-2022 LACTATE (MMOL/L) IN SER/PLAS 2.1 mmol/L Normal 0.5-2.2 [facility] Comment on above: Performed By: #### L [id number] ####[facility] ([facility] [place] [address] LACTIC ACID, PLASMAon 2022 LACTATE (MMOL/L) IN SER/PLAS 1.3 mmol/L Normal 0.5-2.2 [facility] Comment on above: Performed By: #### L [id number] ####[facility] ([facility])[address] [place] [address] MAGNESIUMon 11-03-2022 Magnesium [Mass/Vol] 1.5 mg/dL Low 1.9-2.7 [facility] Comment on above: Performed By: #### L [id number] ####[facility] ([facility])[address] [place] [address] Magnesium [Mass/Vol] 1.9 mg/dL Normal 1.9-2.7 [facility] Comment on above: Performed By: #### L [id number] ####[facility] [facility] ([facility])[address] [place] [address] MANUAL DIFFERENTIALon 2022 BASOPHILS (10*3/UL) IN BLOOD BY CALCULATION 0.01 10*3/uL Normal [facility] Comment on above: Performed By: #### L [id number] ####[facility] ([facility])[address] [place] [address] BASOPHILS/100 LEUKOCYTES IN BLOOD BY AUTOMATED COUNT 0.1 % Normal 0.0-1.0 [facility] Comment on above: Performed By: #### L [id number] ####[facility] ([facility])[address] [place] [address] EOSINOPHILS (10*3/UL) IN BLOOD BY CALCULATION 0.00 10*3/uL Normal [facility] Comment on above: Performed By: #### L [id number] ####[facility] ([facility])[address] [place] [address] EOSINOPHILS/100 LEUKOCYTES IN BLOOD BY AUTOMATED COUNT 0.0 % Normal 0.0-6.0 [facility] Comment on above: Performed By: #### L [id number] ####[facility] ([facility])[address] [place] [address] IMMATURE GRANULOCYTES (10*3/UL) IN BLOOD BY CALCULATION 0.05 Normal [facility] Comment on above: Performed By: #### L [id number] ####[facility] ([facility])[address], [place] [address] IMMATURE GRANULOCYTES/100 LEUKOCYTES IN BLOOD BY AUTOMATED COUNT 0.4 % Normal 0.0-1.0 [facility] Comment on above: Performed By: #### L [id number] ####[facility] ([facility], [place] [address] LYMPHOCYTES (10*3/UL) IN BLOOD BY CALCULATION 0.36 10*3/uL Low 1.20-4.00 [facility] Comment on above: Performed By: #### L [id number] ####[facility] ([facility])[address], [place] [address] LYMPHOCYTES/100 LEUKOCYTES IN BLOOD BY AUTOMATED COUNT 3.0 % Low 20.0-45.0 [facility] Comment on above: Performed By: #### L [id number] ####[facility] ([facility])[address], [place] [address] MONOCYTES (10*3/UL) IN BLOOD BY CALCUATION 0.74 10*3/uL Normal [facility] Comment on above: Performed By: #### L [id number] ####[facility] ([facility])[address] [place], [place] [address] MONOCYTES/100 LEUKOCYTES IN BLOOD BY AUTOMATED COUNT 6.1 % Normal 5.0-12.0 [facility] Comment on above: Performed By: #### L [id number] ####[facility] ([facility] [place], [place] [address] NEUTROPHILS (10*3/UL) IN BLOOD BY CALCULATION 10.9 10*3/uL High 1.6-7.6 [facility] Comment on above: Performed By: #### L [id number] ####[facility] ([facility])[address], [place] [address] NEUTROPHILS/100 LEUKOCYTES IN BLOOD BY AUTOMATED COUNT 90.4 % High 40.0-72.0 [facility] Comment on above: Performed By: #### L [id number] ####[facility] ([facility] [place] [address] BASOPHILS (10*3/UL) IN BLOOD BY CALCULATION 0.01 10*3/uL Normal [facility] Comment on above: Performed By: #### L [id number] ####[facility] ([facility])[address] [place] [address] BASOPHILS/100 LEUKOCYTES IN BLOOD BY AUTOMATED COUNT 0.2 % Normal 0.0-1.0 [facility] Comment on above: Performed By: #### L [id number] ####[facility] ([facility])[address] [place] [address] EOSINOPHILS (10*3/UL) IN BLOOD BY CALCULATION 0.00 10*3/uL Normal [facility] Comment on above: Performed By: #### L [id number] ####[facility] ([facility])[address] [place] [address] EOSINOPHILS/100 LEUKOCYTES IN BLOOD BY AUTOMATED COUNT 0.0 % Normal 0.0-6.0 [facility] Comment on above: Performed By: #### L [id number] ####[facility] ([facility])[address] [place] [address] IMMATURE GRANULOCYTES (10*3/UL) IN BLOOD BY CALCULATION 0.02 Normal [facility] Comment on above: Performed By: #### L [id number] ####[facility] ([facility])[address] [place] [address] IMMATURE GRANULOCYTES/100 LEUKOCYTES IN BLOOD BY AUTOMATED COUNT 0.5 % Normal 0.0-1.0 [facility] Comment on above: Performed By: #### L [id number] ####[facility] ([facility])[address] [place] [address] LYMPHOCYTES (10*3/UL) IN BLOOD BY CALCULATION 0.32 10*3/uL Low 1.20-4.00 [facility] Comment on above: Performed By: #### L [id number] ####[facility] ([facility])[address] [place] [address] LYMPHOCYTES/100 LEUKOCYTES IN BLOOD BY AUTOMATED COUNT 7.5 % Low 20.0-45.0 [facility] Comment on above: Performed By: #### L [id number] ####[facility] ([facility])[address] [place] [address] MONOCYTES (10*3/UL) IN BLOOD BY CALCUATION 0.16 10*3/uL Normal [facility] Comment on above: Performed By: #### L [id number] ####[facility] ([facility])[address] [place] [address] MONOCYTES/100 LEUKOCYTES IN BLOOD BY AUTOMATED COUNT 3.7 % Low 5.0-12.0 [facility] Comment on above: Performed By: #### L [id number] ####[facility] ([facility])[address] [place] [address] NEUTROPHILS (10*3/UL) IN BLOOD BY CALCULATION 3.8 10*3/uL Normal 1.6-7.6 [facility] Comment on above: Performed By: #### L [id number] ####[facility] ([facility])[address] [place] [address] NEUTROPHILS/100 LEUKOCYTES IN BLOOD BY AUTOMATED COUNT 88.1 % High 40.0-72.0 [facility] Comment on above: Performed By: #### L [id number] ####[facility] ([facility])[address] [place] [address] MRSA/MSSA DNA NASALon 2022 MRSA DNA Negative Normal Negative, Invalid [facility] Comment on above: Performed By: #### L [id number] ####[facility] ([facility])[address] [place] [address] MSSA DNA Negative Normal Negative, Invalid [facility] Comment on above: Performed By: #### L [id number] ####[facility] ([facility])[address] [place] [address] NURSNOTEon 11-03-2022 NURSNOTE Vascular at bedside assessing patient Nini Elam RN PACU Normal [facility] NURSNOTE Labs drawn at [facility] e by IN FLIGHT CREW MEMBER from arterial line and sent to lab Nini Elam RN PACU [facility] NURSNOTE Ok to give 5 mg of Compazine per anesthesia Nini Elam MICROCOMPUTER TECHNICIAN Normal [facility] NURSNOTE Fluoro- 3.5 min K- 162 Contrast- 105ml [facility] NURSNOTE ACT RESULTS 1355- 279 1410- 252 1429- 239 1454- 246 1529- 175 1538- 188 [facility] NURSNOTE ACT RESULTS 1233- 279 1255- 272 1323- 265 [facility] NURSNOTE 1145: UPDATED I N WAITING ROOM [facility] NURSNOTE INTRAOP ACT RESULTS: 1113: BASELINE ACT 150 [facility] OPNOTEon 11-03-2022 OPNOTE [facility] PHOSPHORUSon 11-03-2022 Magnesium [Mass/Vol] 3.5 mg/dL Normal 2.5-5.0 [facility] Comment on above: Performed By: #### L [id number] ####[facility] ([facility])[address] [place] [address] Magnesium [Mass/Vol] 3.2 mg/dL Normal 2.5-5.0 [facility] Comment on above: Performed By: #### L [id number] ####[facility] ([facility])[address] [place] [address] POCT ACTIVATED CLOTTING TIME UNSOLICITED RESULTSon 11-03-2022 POC ACTIVATED CLOTTING TIME 188 sec High 82-152 [facility] Comment on above: Performed By: #### L [id number] ####[facility] ([facility])[address] [place] [address] POC ACTIVATED CLOTTING TIME 175 sec High 82-152 [facility] Comment on above: Performed By: #### L [id number] ####[facility] ([facility])[address] [place] [address] POC ACTIVATED CLOTTING TIME 246 sec High 82-152 [facility] Comment on above: Performed By: #### L [id number] ####[facility] ([facility])[address] [place] [address] POC ACTIVATED CLOTTING TIME 239 sec High 82-152 [facility] Comment on above: Performed By: #### L [id number] ####[facility] ([facility])[address] [place] [address] POC ACTIVATED CLOTTING TIME 252 sec High 82-152 [facility] Comment on above: Performed By: #### L [id number] ####[facility] ([facility])[address] [place] [address] POC ACTIVATED CLOTTING TIME 279 sec High 82-152 [facility] Comment on above: Performed By: #### L [id number] ####[facility] ([facility])[address] [place] [address] POC ACTIVATED CLOTTING TIME 265 sec High 82-152 [facility] Comment on above: Performed By: #### L [id number] ####[facility] ([facility])[address] [place] [address] POC ACTIVATED CLOTTING TIME 272 sec High 82-152 [facility] Comment on above: Performed By: #### L [id number] ####[facility] ([facility])[address] [place] [address] POC ACTIVATED CLOTTING TIME 279 sec High 82-152 [facility] Comment on above: Performed By: #### L [id number] ####[facility] ([facility])[address] [place] [address] POC ACTIVATED CLOTTING TIME 150 sec Normal 82-152 [facility] Comment on above: Performed By: #### L [id number] ####[facility] ([facility])[address] [place] [address] POCT GLUCOSE METER UNSOLICIT ED RESULTSon 11-03-2022 Glucose [Mass/Vol] 138 mg/dL High 70-105 [facility] Comment on above: Result Comment: phag lynn Performed By: #### L [id number] ####[facility] ([facility])[address] [place] [address] Glucose [Mass/Vol] 145 mg/dL High 70-105 [facility] Comment on above: Result Comment: [email or web address] Performed By: #### L [id number] ####[facility] ([facility])[address] [place] [address] POCT PERFUSION PANEL UNSOLIC ITED RESULTSon 11-03-2022 CO2 [Moles/Vol] 26.0 mmol/L Normal 21.0-29.0 [facility] Comment on above: Performed By: #### L [id number] ####[facility] ([facility])[address] [place] [address] Glucose [Mass/Vol] 127 mg/dL High 70-105 [facility] Comment on above: Performed By: #### L [id number] ####[facility] ([facility])[address] [place] [address] HCO3 (Bld) [Moles/Vol] 24.7 mmol/L Normal 23.0-28.0 [facility] Comment on above: Performed By: #### L [id number] ####[facility] ([facility])[address] [place] [address] Hematocrit (Bld) [Volume fraction] 29 % Low 38-51 [facility] Comment on above: Performed By: #### L [id number] ####[facility] ([facility])[address] [place] [address] Hemoglobin (Bld) [Mass/Vol] 9.9 g/dL Low 12.0-17.0 [facility] Comment on above: Performed By: #### L [id number] ####[facility] ([facility])[address] [place] [address] POCT BASE EXCESS 0.0 mmol/L Normal -2.0-3.0 [facility] Comment on above: Performed By: #### L [id number] ####[facility] ([facility])[address] [place] [address] POCT IONIZED CALCIUM 1.19 mmol/L Normal 1.12-1.32 [facility] Comment on above: Performed By: #### L [id number] ####[facility] ([facility])[address] [place] [address] POCT PCO2 40.9 mmHg Low 41.0-51.0 [facility] Comment on above: Performed By: #### L [id number] ####[facility] ([facility])[address] [place] [address] POCT PH 7.39 Normal 7.31-7.41 [facility] Comment on above: Performed By: #### L [id number] ####[facility] ([facility])[address] [place] [address] POCT PO2 217 mmHg High 80-105 [facility] Comment on above: Performed By: #### L [id number] ####[facility] ([facility])[address] [place] [address] POCT SO2 100 % High 95-98 [facility] Comment on above: Performed By: #### L [id number] ####[facility] ([facility])[address] [place] [address] Potassium [Moles/Vol] 3.9 mmol/L Normal 3.5-4.9 [facility] Comment on above: Performed By: #### L [id number] ####[facility] ([facility])[address] [place] [address] Sodium [Moles/Vol] 138 mmol/L Normal 138.0-146.0 [facility] Comment on above: Performed By: #### L [id number] ####[facility] ([facility])[address] [place] [address] POCT SARS-COV-2 PCRon 2022 POC SARS-COV-2 ANTIGEN Negative Normal Negative [facility] Comment on above: Result Comment: ID N OW COVID-19 assay performed on the ID NOW Instrument is a rapid molecular in vitro diagnostic test utilizing an isothermal nucleic acid amplification technology intended for the qualitative detection of nucleic acid from the SARS-CoV-2 virus indirect anterior nasal(nasal), nasopharyngeal or throat swabs from individuals who are suspected of COVID-19 by their healthcare provider within the first seven days of the onset of symptoms.Testing is limited to laboratories certified under the ClinicalLaboratory Improvement Amendments of 1988 (CLIA), 42 U.S.C. ???263a,that meet the requirements to perform high, moderate, or waived complexity tests. The ID NOW COVID-19 assay is also authorized for use at the Point of Care (POC), i.e., in patient caresettings operating under a CLIA Certificate of Waiver, Certificate of Compliance, or Certificate of Accreditation. Performed By: #### L [id number] ####[facility] ([facility])[address] [place] [address] POTASSIUM, WHOLE BLOODon Potassium [Moles/Vol] 3.9 mmol/L Normal 3.5-5.1 [facility] Comment on above: Performed By: #### P OTASSIUM, WHOLE BLOOD ####[facility] RESPIRAT[facility] [id number] [place] [address] [place] PROTIME-INRon 11-03-2022 INR IN PPP BY COAGULATION ASSAY 1.49 High 0.90-1.10 [facility] Comment on above: Result Comment: ACCC P RECOMMENDED INR FOR WARFARIN THERAPY CONDITION INRPROPHYLAXIS OF VENOUS THROMBOSIS 2-3(HIGH-RISK SURGERY)TREATMENT OF VENOUS THROMBOSIS 2-3TREATMENT OF PULMONARY EMBOLISM 2-3PREVENTION OF SYSTEMIC EMBOLISM: 2-3 ACUTE MYOCARDIAL INFARCTION TISSUE HEART VALVES VALVULAR HEART DISEASE ATRIAL FIBRILLATION RECURRENT SYSTEMIC EMBOLISMMECHANICAL HEART VALVE 2.5-3.5 FROM: ORAL ANTICOAGULANTS. MECHANISM OF ACTION, CLINICAL EFFECTIVENESS, AND OPTIMAL THERAPEUTIC RANGE. CHEST 1995;108:231S-246S. Performed By: #### L [id number] ####[facility] ([facility])[address] [place] [address] PROTHROMBIN TIME (PT) IN PPP BY COAGULATION ASSAY 17.8 Seconds High 12.3-14.8 [facility] Comment on above: Performed By: #### L [id number] ####[facility] ([facility])[address] [place] [address] INR IN PPP BY COAGULATION ASSAY 1.54 High 0.90-1.10 [facility] Comment on above: Result Comment: ACCC P RECOMMENDED INR FOR WARFARIN THERAPY CONDITION INRPROPHYLAXIS OF VENOUS THROMBOSIS 2-3(HIGH-RISK SURGERY)TREATMENT OF VENOUS THROMBOSIS 2-3TREATMENT OF PULMONARY EMBOLISM 2-3PREVENTION OF SYSTEMIC EMBOLISM: 2-3 ACUTE MYOCARDIAL INFARCTION TISSUE HEART VALVES VALVULAR HEART DISEASE ATRIAL FIBRILLATION RECURRENT SYSTEMIC EMBOLISMMECHANICAL HEART VALVE 2.5-3.5 FROM: ORAL ANTICOAGULANTS. MECHANISM OF ACTION, CLINICAL EFFECTIVENESS, AND OPTIMAL THERAPEUTIC RANGE. CHEST 1995;108:231S-246S. Performed By: #### L [id number] ####[facility] ([facility])[address] [place] [address] PROTHROMBIN TIME (PT) IN PPP BY COAGULATION ASSAY 18.3 Seconds High 12.3-14.8 [facility] Comment on above: Performed By: #### L [id number] ####[facility])[address] [place] [address] SODIUM, WHOLE BLOODon 01-25- 2023 SODIUM, WHOLE BLOOD 134 Low 136-145 [facility] Comment on above: Performed By: #### S ODIUM, WHOLE BLOOD ####[facility] RESPIRAT[facility] [id number] [place] [address] [facility] SODIUM, WHOLE BLOOD 133 Low 136-145 [facility] Comment on above: Performed By: #### S ODIUM, WHOLE BLOOD ####[facility] RESPIR[facility]ORY [id number] [place] [address] [facility] TYPE AND SCREENon 11-03-2022 AB SCREEN Negative Normal [facility] Comment on above: Performed By: #### L [id number] ####[facility] BLOOD BANK, ABO group Nom (Bld) O Normal [facility] Comment on above: Performed By: #### L [id number] ####[facility] B[facility]OD [facility], RH TYPE IN BLOOD Positive Normal [facility] Comment on above: Performed By: #### L [id number] ####[facility] B[facility], CBC W MANUAL DIFFon 11-01-19 23 ATYPICAL LYMPH # Normal [facility] Comment on above: Performed By: #### C ESTHELA #### [facility] [address] [place] [address] Dr. Joselyn Coffey ATYPICAL LYMPH % Normal [facility] Comment on above: Performed By: #### C ESTHELA #### [facility] [address] [address] [address] Joselyn MARMOLEJO # Normal 0.0-0.3 [facility] Comment on above: Performed By: #### C ESTHELA #### [facility] [address] [place] [address] Dr. Joeslyn MARMOLEJO % Normal 0-5 [facility] Comment on above: Performed By: #### C ESTHELA #### [facility] [address] [place] [address] Dr. Joselyn Coffey BASOM # 0.00 103/ul Normal 0.00-0.10 [facility] Comment on above: Performed By: #### C ESTHELA #### [facility] [address] [address] [address] Joselyn Coffey BASOM % 0.0 % Critically low 0.2-2.0 [facility] Comment on above: Performed By: #### C BCMAN #### [facility] [address] [address] [address] Joselyn Coffey BLAST # Normal [facility] Comment on above: Performed By: #### C BCMAN #### [facility] [address] [address] [address] Joselyn Coffey BLAST % Normal [facility] Comment on above: Performed By: #### C BCMAN #### [facility] [address] [place] [address] Dr. Joselyn Coffey CORRECTED WBC Normal 4.0-11.0 [facility] Comment on above: Performed By: #### C DANNYMAN #### [facility] [address] [place] [address] Dr. Joselyn Coffey EOS # 0.00 103/ul Normal 0.00-0.70 [facility] Comment on above: Performed By: #### C BCDEV #### [facility] [address] [place] [address] Dr. Joselyn Coffey EOS% 0.0 % Critically low 0.9-7.0 [facility] Comment on above: Performed By: #### C BCDEV #### [facility] [address] [place] [address] Dr. Joselyn Coffey HCT 36.5 % Critically low 42.0-54.0 [facility] Comment on above: Performed By: #### C BCMAN #### [facility] [address] [place] [address] Dr. Joselyn Coffey HGB 13.2 g/dl Critically low 14.0-18.0 [facility] Comment on above: Performed By: #### C BCMAN #### [facility] [address] [place] [address] Dr. Joselyn Coffey LYMPHM # 0.35 103/ul Critically low 1.20-3.80 [facility] Comment on above: Performed By: #### C BCMAN #### [facility] [address] [address] [address] Joselyn Coffey LYMPHM% 7.0 % Critically low 20.5-60.0 [facility] Comment on above: Performed By: #### C ESTHELA #### [facility] [address] [place] [address] Dr. Joselyn Coffey MCH 31.9 pg Normal 25.9-34.0 [facility] Comment on above: Performed By: #### C ESTHELA #### [facility] [address] [place] [address] Dr. Joselyn Coffey MCHC 36.2 g/dl Critically high 29.9-35.2 [facility] Comment on above: Performed By: #### C ESTHELA #### [facility] [address] [place] [address] Dr. Joselyn Coffey MCV 88.2 fL Normal 80.0-94.0 [facility] Comment on above: Performed By: #### C ESTHELA #### [facility] [address] [place] [address] Dr. Joselyn Coffey METAMYELOCYTE # Normal [facility] Comment on above: Performed By: #### C ESTHELA #### [facility] [address] [place] [address] Dr. Joselyn Coffey METAMYELOCYTE % Normal [facility] Comment on above: Performed By: #### C ESTHELA #### [facility] [address] [place] [address] Dr. Joselyn Coffey MONOM# 0.35 103/ul Normal 0.30-0.80 [facility] Comment on above: Performed By: #### C ESTHELA #### [facility] [address] [place] [address] Dr. Joselyn Coffey MONOM% 7.0 % Normal 1.7-12.0 [facility] Comment on above: Performed By: #### C ESTHELA #### [facility] [address] [place] [address] Dr. Joselyn Coffey MPV 10.7 fL Normal 9.5-13.5 [facility] Comment on above: Performed By: #### C BCMAN #### [facility] [address] [place] [address] Dr. Joselyn Coffey MYELOCYTE # Normal [facility] Comment on above: Performed By: #### C BCMAN #### [facility] [address] [place] [address] Dr. Joselyn Coffey MYELOCYTE % Normal [facility] Comment on above: Performed By: #### C BCMAN #### [facility] [address] [place] [address] Dr. Joselyn Coffey NRBC Normal [facility] Comment on above: Performed By: #### C BCDEV #### [facility] [address] [place] [address] Dr. Joselyn Coffey PLT 79 103/ul Critically low 150-450 [facility] Comment on above: Performed By: #### C ESTHELA #### [facility] [address] [place] [address] Dr. Joselyn Coffey RBC 4.14 106/ul Critically low 4.70-6.10 [facility] Comment on above: Performed By: #### C BCDEV #### [facility] [address] [place] [address] Dr. Joselyn Coffey RDW 13.2 % Normal 11.0-15.0 [facility] Comment on above: Performed By: #### C BCDEV #### [facility] [address] [place] [address] Dr. Joselyn Coffey SEG # 4.30 103/ul Normal 1.40-6.50 [facility] Comment on above: Performed By: #### C BCDEV #### [facility] [address] [place] [address] Dr. Joselyn Coffey SEG % 86.0 % Critically high 43.0-75.0 [facility] Comment on above: Performed By: #### C BCMAN #### [facility] [address] [place] [address] Dr. Joselyn Coffey WBC 5.0 103/ul Normal 4.0-11.0 [facility] Comment on above: Performed By: #### C ESTHELA #### [facility] [address] [place] [address] Dr. Joselyn Coffey MRSA NARES #1on 11-01-2022 MRSA NARES #1 Culture Observations : NO GROWTH OF MRSA AT 48 HOURS. Normal [facility] Comment on above: Performed By: #### C ESTHELA #### [facility] [address] [place] [address] Dr. Joselyn Coffey PROF CHEM 8 (BAS METB)on Anion gap [Moles/Vol] 12.7 mmol/L Normal [facility] Comment on above: Performed By: #### P TT, PT #### [facility] [address] [place] [address] Dr. Joselyn Coffey Calcium [Mass/Vol] 8.9 mg/dL Normal 8.5-10.1 [facility] Comment on above: Performed By: #### P TT, PT #### [facility] [address] [place] [address] Dr. Joselyn Coffey Chloride [Moles/Vol] 100 mmol/L Normal 98-107 [facility] Comment on above: Performed By: #### P TT, PT #### [facility] [address] [place] [address] Dr. Joselyn Coffey CO2 [Moles/Vol] 29.0 mmol/L Normal 21.0-32.0 [facility] Comment on above: Performed By: #### P TT, PT #### [facility] [address] [place] [address] Dr. Joselyn Coffey Creatinine [Mass/Vol] 1.06 mg/dL Normal 0.70-1.30 [facility] Comment on above: Performed By: #### P TT, PT #### [facility] [address] [place] [address] Dr. Joselyn Coffey EGFR-AF UGANDAN >60 Normal >=60 [facility] Comment on above: Performed By: #### P TT, PT #### [facility] [address] [place] [address] Dr. Joselyn Coffey EGFR-NON AF UGANDAN >60 Normal >=60 [facility] Comment on above: Performed By: #### P TT, PT #### [facility] [address] [address] [address] Joselyn Coffey Glucose [Mass/Vol] 278 mg/dL Critically high 74-106 [facility] Comment on above: Performed By: #### P TT, PT #### [facility] [address] [place] [address] Dr. Joselyn Coffey Potassium [Moles/Vol] 4.7 mmol/L Normal 3.5-5.1 [facility] Comment on above: Performed By: #### P TT, PT #### [facility] [address] [place] [address] Dr. Joselyn Coffey Sodium [Moles/Vol] 137 mmol/L Normal 136-145 [facility] Comment on above: Performed By: #### P TT, PT #### [facility] [address] [place] [address] Dr. Joselyn Coffey Urea nitrogen [Mass/Vol] 17.0 mg/dL Normal 7.0-18.0 [facility] Comment on above: Performed By: #### P TT, PT #### [facility] [address] [place] [address] Dr. Joselyn Coffey Urea nitrogen/Creatinine [Mass ratio] 16.0 mg/mg Normal [facility] Comment on above: Performed By: #### P TT, PT #### [facility] [address] [place] [address] Dr. Joselyn Coffey PROTIMEon 11-01-2022 INR Coag (PPP) [Relative time] 1.10 {INR} Normal [facility] Comment on above: Performed By: #### P TT, PT #### [facility] [address] [place] [address] Dr. Joselyn Coffey INR GUIDELINES SEE BELOW Normal [facility] Comment on above: Result Comment: SNOW RED INR: 2.0 - 3.0 CONDITIONS NOT LISTED BELOW 2.5 - 3.5 FOR PROSTHETIC HEART VALVE REPLACEMENT 2.5 - 3.5 RECURRENT THROMBOSIS Performed By: #### P TT, PT #### [facility] [address] [place], [place] [address] Dr. Joselyn Coffey PT Coag (PPP) [Time] 11.6 s Normal 9.0-11.6 [facility] Comment on above: Performed By: #### P TT, PT #### [facility] [address] [place], [place] [address] Dr. Joselyn Coffey PTTon 11-01-2022 aPTT Coag (Bld) [Time] 29.8 s Normal 22.3-36.2 [facility] Comment on above: Performed By: #### P TT, PT #### [facility] [address] [place], [place] [address] Dr. Joselyn Coffey [id number] 10-27-2022 [id number] [facility] 36on 10-27-2022 36 Normal [facility] 36on 10-26-2022 36 a [facility] CTA ABD MARY JANE WWO CON LE RUNO FFon 10-20-2022 CTA ABD MARY JANE WWO CON LE RUNOFF EXAMINATION: CTA ABD MARY JANE WWO CON LE RUNOFF HISTORY: Pain at rest of left lower limb co-occurrent and due to atherosclerosis ; right foot pain, limb ischemia COMPARISON: CT abdomen pelvis 06/17/2021 TECHNIQUE: After obtaining the patient's consent, CT images of the abdomen, pelvis, and lower extremities were obtained without and with non-ionic intravenous contrast material. Multi-planar reformatted/3-D images were created to optimize visualization of vascular anatomy. Dose reduction techniques were achieved by using automated exposure control and/or adjustment of mA and/or kV according to patient size and/or use of iterative reconstruction technique. FINDINGS: AORTA: Atherosclerotic disease with marked narrowing at level of renal arteries and below. Patent endovascular stent within the celiac axis and superior mesenteric artery. Mild right, moderate left narrowing of proximal renal arteries due to atherosclerotic disease. ILIAC: Occluded endovascular stent within right common and external iliac artery. Markedly narrowed but patent endovascular stent within left common and external iliac artery. RIGHT LEG: Reconstitution of flow within a markedly narrowed common femoral artery. Patent deep femoral artery. 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 Trace amount of reconstituted flow within the popliteal and calf arteries secondary to collateral circulation. LEFT LEG: Patent but markedly narrowed left common femoral artery with patent deep femoral artery. 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 Very minimal reconstitution of flow within the distal popliteal and calf arteries secondary to collateral circulation. LUNG BASES: No visible pulmonary or pleural disease. LIVER: No enlargement, atrophy, abnormal density, or significant focal lesion. BILIARY: Cholecystectomy. PANCREAS: No lesion, fluid collection, ductal dilatation, or atrophy. SPLEEN: No enlargement or focal lesion. ADRENALS: No mass or enlargement. KIDNEYS: No mass, obstruction, or calcification. BOWEL/MESENTERY: No visible mass, obstruction, or bowel wall thickening. RETROPERITONEUM: No mass or adenopathy. PELVIC NODES: No adenopathy. URINARY BLADDER: No visible focal wall thickening, lesion, or calculus. PELVIC ORGANS: No visible mass. Pelvic organs appropriate for patient age. ABDOMINAL WALL: Small fat filled left inguinal hernia without strangulation. Tiny umbilical hernia containing only fat; no strangulation. BONES: Posttraumatic appearance of left iliac wing. Old, healed left rib fractures. OTHER: IMPRESSION: 1. Marked atherosclerotic narrowing of aorta. 2. Right leg: Occluded right common and external iliac artery, but short segment of minimally patent common femoral artery. Completely occluded femoral artery with trace amount of reconstituted flow within the popliteal and calf arteries. 3. Left leg: Patent, but markedly narrowed endovascular stent within left common and external iliac artery. Marked narrowing of left common femoral artery with patent deep femoral artery. 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 Electronically authenticated by: ANDREA ARTEAGA Date: 2022-10-20 15:34 Normal [facility] ANESon 10-14-2022 ANES Normal [facility] HPon 10-14-2022 HP Normal [facility] 37on 10-07-2022 37 1) get blood tests t sheri 2) we will call to arrange peripheral angiogram for next week 3) start lisinipril for blood pressure and congestive heart failure, continue all other meds Normal [facility] BONE MARROW SCREENon 022 BONE MARROW SCR SEE BONE MARROW SPEC IAL REPORT FORM Normal [facility] Comment on above: Performed By: #### 5 0970 #### [facility] [address] [facility] [facility] CBC W/DIFFon 11-09-2021 ABS IMM GRANS 0.0 10*3/uL Normal 0.0-0.2 [facility] Comment on above: Performed By: #### 5 102, 47600 #### [facility] [address] [facility]. [address] ABS NEUTROPHILS 2.4 10*3/uL Normal 1.6-7.6 [facility] Comment on above: Performed By: #### 5 102, 19057 #### [facility] [address] [facility]. [address] ANISO Moderate Normal [facility] Comment on above: Performed By: #### 5 102, 56892 #### [facility] [address] [facility]. [address] Basophils (Bld) [#/Vol] 0.0 10*3/uL Normal 0.0-0.2 [facility] Comment on above: Performed By: #### 5 102, 23842 #### [facility] [address] [facility]. [address] Basophils/100 WBC (Bld) 0.6 % Normal 0.0-1.0 [facility] Comment on above: Performed By: #### 5 102, 90936 #### [facility] [address] [facility]. [address] ELLIPTOCYTES Slight Normal [facility] Comment on above: Performed By: #### 5 102, 85795 #### [facility] [address] [facility] [place] [address], [facility] Eosinophils (Bld) [#/Vol] 0.0 10*3/uL Normal 0.0-0.5 [facility] Comment on above: Performed By: #### 5 102, 57474 #### [facility] [address] Eosinophils/100 WBC (Bld) 1.2 % Normal 0.0-6.0 [facility] Comment on above: Performed By: #### 5 102, 57085 #### [facility] [address] Erythrocyte distribution width (RBC) [Ratio] 26.7 % High 11.5-15.0 [facility] Comment on above: Performed By: #### 5 102, 59124 #### [facility] [address] Hematocrit (Bld) [Volume fraction] 37.1 % Low 39.0-50.0 [facility] Comment on above: Performed By: #### 5 102, 03236 #### [facility] [address] Hemoglobin (Bld) [Mass/Vol] 11.1 g/dL Low 13.0-17.0 [facility] Comment on above: Performed By: #### 5 102, 83855 #### [facility] [address] IMM PLATELET FRAC 4.6 % Normal 0.8-6.3 [facility] Comment on above: Performed By: #### 5 102, 78958 #### [facility] [address] IMMATURE GRANS 0.3 % Normal 0.0-1.0 [facility] Comment on above: Performed By: #### 5 102, 62469 #### [facility] [address] Lymphocytes (Bld) [#/Vol] 0.5 10*3/uL Low 1.2-4.0 [facility] Comment on above: Performed By: #### 5 102, 11466 #### [facility] [address] [place] [address], [facility] Lymphocytes/100 WBC (Bld) 13.5 % Low 20.0-45.0 [facility] Comment on above: Performed By: #### 5 102, 03484 #### [facility] [address] [place] [address], [facility] MCH (RBC) [Entitic mass] 26.9 pg Low 27.0-33.0 [facility] Comment on above: Performed By: #### 5 102, 41083 #### [facility] [address] [place] [address], [facility] MCHC (RBC) [Mass/Vol] 29.9 g/dL Low 32.0-35.0 [facility] Comment on above: Performed By: #### 5 102, 56601 #### [facility] [address] [place] [address], [facility] MCV (RBC) [Entitic vol] 90.0 fL Normal 82.0-98.0 [facility] Comment on above: Performed By: #### 5 102, 06359 #### [facility] [address] [facility] [place] [address], [facility] Monocytes (Bld) [#/Vol] 0.5 10*3/uL Normal 0.1-1.0 [facility] Comment on above: Performed By: #### 5 102, 09326 #### [facility] [address] [place] [address], [facility] MONOS 14.0 % High 5.0-12.0 [facility] Comment on above: Performed By: #### 5 102, 67809 #### [facility] [address] [place] [id number], [facility] Neutrophils/100 WBC (Bld) 70.4 % Normal 40.0-72.0 [facility] Comment on above: Performed By: #### 5 102, 51359 #### [facility] [address] [place] [address], [facility] Nucleated RBC/100 WBC (Bld) [Ratio] 0 % Normal 0-0 [facility] Comment on above: Performed By: #### 5 102, 98236 #### [facility] [address] [place] [address], [facility] OVALOCYTES Slight Normal [facility] Comment on above: Performed By: #### 5 102, 63798 #### [facility] [address] [place] [address], [facility] PLAT CNT 91 10*3/uL Low 150-400 [facility] Comment on above: Performed By: #### 5 102, 44209 #### [facility] [address] [facility] [place] [address], [facility] POIK Moderate Normal [facility] Comment on above: Performed By: #### 5 102, 16269 #### [facility] [address] [facility] [place] [address], [facility] RBC (Bld) [#/Vol] 4.12 10*6/uL Low 4.20-5.70 [facility] Comment on above: Performed By: #### 5 102, 71226 #### [facility] [address] [facility] [place] [address], [facility] WBC (Bld) [#/Vol] 3.42 10*3/uL Low 4.00-10.60 [facility] Comment on above: Performed By: #### 5 102, 55721 #### [facility] [address] [facility] [place] [address], [facility] COMP METABOLIC PANELon 11-09 Albumin [Mass/Vol] 4.0 g/dL Normal 3.5-5.7 [facility] Comment on above: Performed By: #### 0 0121, 94677, 69180, 92162, 47628, 75876 #### [facility] [address] [place] [address], [facility] ALKALINE PHOSPH 64 IU/L Normal 34-104 [facility] Comment on above: Performed By: #### 0 0121, 20982, 76233, 10815, 45192, 39256 #### [facility] [address] [place] [address], [facility] ALT [Catalytic activity/Vol] 39 U/L Normal 7-52 [facility] Comment on above: Performed By: #### 0 0121, 07118, 26165, 73207, 70187, 50518 #### [facility] [address] [place] [address], [facility] AST [Catalytic activity/Vol] 39 U/L Normal 13-39 [facility] Comment on above: Performed By: #### 0 0121, 34434, 59720, 73237, 15060, 97805 #### [facility] [address] [place] [address], [facility] Bilirubin [Mass/Vol] 0.6 mg/dL Normal 0.3-1.0 [facility] Comment on above: Performed By: #### 0 0121, 89436, 12285, 72650, 27577, 15554 #### [facility] [address] [place] [address], [facility] Calcium [Mass/Vol] 9.2 mg/dL Normal 8.6-10.3 [facility] Comment on above: Performed By: #### 0 0121, 97978, 56850, 51228, 36642, 34021 #### [facility] [address] [place] [address], [place] Chloride [Moles/Vol] 103 mmol/L Normal 98-107 [facility] Comment on above: Performed By: #### 0 0121, 45379, 52953, 94236, 76039, 53607 #### [facility] [address] [place] [address], [place] CO2 [Moles/Vol] 27 mmol/L Normal 21-31 [facility] Comment on above: Performed By: #### 0 0121, 18747, 06685, 18918, 74893, 27950 #### [facility] [address] [place] [address], [place] Creatinine [Mass/Vol] 0.80 mg/dL Normal 0.70-1.30 [facility] Comment on above: Performed By: #### 0 0121, 35570, 23530, 99954, 83879, 49802 #### [facility] [address] [place] [address], [place] GFR/1.73 sq M.predicted among blacks MDRD (S/P/Bld) [Vol rate/Area] mL/min/{1.73_m2} Normal >60 [facility] Comment on above: Result Comment: Calc ulation may not be valid for patients over 70 years Performed By: #### 0 0121, 59192, 86553, 01196, 68197, 28043 #### [facility] [address] [place] [address], [place] GFR/1.73 sq M.predicted among non-blacks MDRD (S/P/Bld) [Vol rate/Area] mL/min/{1.73_m2} Normal >60 [facility] Comment on above: Result Comment: Calc ulation may not be valid for patients over 70 years Performed By: #### 0 0121, 00926, 20217, 58428, 84525, 40556 #### [facility] [address] [place] [address], [place] Glucose [Mass/Vol] 78 mg/dL Normal 70-100 [facility] Comment on above: Performed By: #### 0 0121, 94935, 43585, 40372, 83779, 14089 #### [facility] [address] [place] [address], [facility] Potassium [Moles/Vol] 3.9 mmol/L Normal 3.5-5.1 [facility] Comment on above: Performed By: #### 0 0121, 66394, 85032, 27204, 29107, 20920 #### [facility] [address] [place] [address], [facility] Protein [Mass/Vol] 7.3 g/dL Normal 6.0-8.3 [facility] Comment on above: Performed By: #### 0 0121, 33716, 90061, 52265, 17479, 81479 #### [facility] [address] [place] [address], [facility] Sodium [Moles/Vol] 137 mmol/L Normal 136-145 [facility] Comment on above: Performed By: #### 0 0121, 55991, 96952, 92003, 96100, 43176 #### [facility] [address] [place] [address], [facility] Urea nitrogen [Mass/Vol] 11 mg/dL Normal 7-25 [facility] Comment on above: Performed By: #### 0 0121, 55451, 32766, 09613, 30039, 15294 #### [facility] [address] [facility] [place] [address], [facility] FERRITINon 11-09-2021 Ferritin [Mass/Vol] 34 ng/mL Normal 24-336 [facility] Comment on above: Performed By: #### 0 0121, 41900, 32380, 86522, 85789, 54739 #### [facility] [address] [place] [address], [facility] FOLATE SERUMon 11-09-2021 SERUM FOLATE 12.15 ng/mL Normal 6.60-1000.0 0 [facility] Comment on above: Result Comment: Norm al range reflects World [employer] International Standard 03/178 Performed By: #### 0 0121, 27821, 73820, 29390, 51768, 98147 #### [facility] [address] HAPTOGLOBINon 11-09-2021 HAPTOGLOBIN 43 mg/dL Normal 26-164 [facility] Comment on above: Performed By: #### 5 0103, 86116 #### [facility] [address] HEMATOLOGY COMPLETE EVALUATI ON siPARDIGMon 11-09-2021 RESULT Results faxed to kalpesh menezes physician and sent to HIM Normal [facility] Comment on above: Result Comment: Test performed by [facility] * [address] [place] [address], [address] * [place], [place] * [phone] Campus President: Aguilar Winston M.D. RESULTS FAXED TO [phone] Performed By: #### 5 0103, 95713 #### [facility] [address] [facility] [address] LDH BLOODon 11-09-2021 LDH 114 Units/L Low 140-271 [facility] Comment on above: Performed By: #### 0 0121, 73571, 91479, 48964, 29180, 40933 #### [facility] [address] [facility] [address] RETICULOCYTE PANELon 022 ABSOLUTE RETICULOCYTE 0.0548 10*6/uL Normal 0.02 50-0.10 00 [facility] Comment on above: Performed By: #### 5 0103, 80262 #### [facility] [address] [facility] [address] IMMATURE RETICULOCYTE FRACTION 11.0 % Normal 2.0-16.0 [facility] Comment on above: Performed By: #### 5 0103, 48244 #### [facility] [address] [facility] [place] [address], [facility] RETIC COUNT 1.33 % Normal 0.50-1.80 [facility] Comment on above: Performed By: #### 5 0103, 03208 #### [facility] [address] [facility] [address] RETICULOCYTE HEMOGLOBIN 42.0 pg High 28.0-36.0 [facility] Comment on above: Performed By: #### 5 0103, 92564 #### [facility] [address] [facility]. [address] TIBC- INCLUDES IRONon 2021 FE SATURATION 16 % Low 20-50 [facility] Comment on above: Performed By: #### 0 0121, 71331, 29760, 81563, 32024, 58206 #### [facility] [address] [facility]. [address] Iron [Mass/Vol] 67 ug/dL Normal 50-212 [facility] Comment on above: Performed By: #### 0 0121, 96009, 50544, 25481, 37892, 92958 #### [facility] [address] [facility]. [address] TIBC 420 mcg/dL Normal 250-450 [facility] Comment on above: Performed By: #### 0 0121, 85156, 39534, 34030, 10531, 54133 #### [facility] [address] [facility] [place] [address], [facility] UIBC 353 mcg/dL Normal 155-355 [facility] Comment on above: Performed By: #### 0 0121, 38859, 07625, 15857, 06047, 22522 #### [facility] [address] [facility]. [address] VITAMIN B12on 11-09-2021 Cobalamin (Vitamin B12) [Mass/Vol] 733 pg/mL Normal 180-914 [facility] Comment on above: Result Comment: REFE RENCE RANGES: 180-914 pg/mL Normal 145-179 pg/mL Indeterminate <145 pg/mL Deficient Performed By: #### 0 0121, 92002, 40726, 98433, 32325, 89160 #### [facility] [address] CBC W/DIFFon 09-15-2021 ABS IMM GRANS 0.0 10*3/uL Normal 0.0-0.2 [facility] Comment on above: Performed By: #### 5 0103 #### [facility] [address] ABS NEUTROPHILS 1.7 10*3/uL Normal 1.6-7.6 [facility] Comment on above: Performed By: #### 5 0103 #### [facility] [address] ANISO Moderate Normal [facility] Comment on above: Performed By: #### 5 0103 #### [facility] [address] [place] [address], [facility] Basophils (Bld) [#/Vol] 0.0 10*3/uL Normal 0.0-0.2 [facility] Comment on above: Performed By: #### 5 0103 #### [facility] [address] [place] [place] [address], [facility] Basophils/100 WBC (Bld) 0.5 % Normal 0.0-1.0 [facility] Comment on above: Performed By: #### 5 0103 #### [facility] [address] [place] [address], [facility] ELLIPTOCYTES Slight Normal [facility] Comment on above: Performed By: #### 5 0103 #### [facility] [address] [place] [place] [address], [facility] Eosinophils (Bld) [#/Vol] 0.0 10*3/uL Normal 0.0-0.5 [facility] Comment on above: Performed By: #### 5 0103 #### [facility] [address] [facility]. [address] Eosinophils/100 WBC (Bld) 0.9 % Normal 0.0-6.0 [facility] Comment on above: Performed By: #### 5 0103 #### [facility] [address] Erythrocyte distribution width (RBC) [Ratio] 18.6 % High 11.5-15.0 [facility] Comment on above: Performed By: #### 5 0103 #### [facility] [address] Hematocrit (Bld) [Volume fraction] 24.4 % Low 39.0-50.0 [facility] Comment on above: Performed By: #### 5 0103 #### [facility] [address] Hemoglobin (Bld) [Mass/Vol] 6.8 g/dL Low 13.0-17.0 [facility] Comment on above: Performed By: #### 5 0103 #### [facility] [address] IMM PLATELET FRAC 6.0 % Normal 0.8-6.3 [facility] Comment on above: Performed By: #### 5 0103 #### [facility] [address] IMMATURE GRANS 0.0 % Normal 0.0-1.0 [facility] Comment on above: Performed By: #### 5 0103 #### [facility] [address] [facility] Lymphocytes (Bld) [#/Vol] 0.2 10*3/uL Low 1.2-4.0 [facility] Comment on above: Performed By: #### 5 0103 #### [facility] [address] [place] [address], [facility] Lymphocytes/100 WBC (Bld) 10.9 % Low 20.0-45.0 [facility] Comment on above: Performed By: #### 5 0103 #### [facility] [address] [place] [address], [facility] MCH (RBC) [Entitic mass] 22.1 pg Low 27.0-33.0 [facility] Comment on above: Performed By: #### 5 0103 #### [facility] [address] [place] [address], [facility] MCHC (RBC) [Mass/Vol] 27.9 g/dL Low 32.0-35.0 [facility] Comment on above: Performed By: #### 5 0103 #### [facility] [address] [place] [address], [facility] MCV (RBC) [Entitic vol] 79.2 fL Low 82.0-98.0 [facility] Comment on above: Performed By: #### 5 0103 #### [facility] [address] [place] [address], [facility] Monocytes (Bld) [#/Vol] 0.3 10*3/uL Normal 0.1-1.0 [facility] Comment on above: Performed By: #### 5 0103 #### [facility] [address] [place] [address], [facility] [facility] 12.2 % High 5.0-12.0 [facility] Comment on above: Performed By: #### 5 3 #### [facility] [address] [place] [address], [facility] Neutrophils/100 WBC (Bld) 75.5 % High 40.0-72.0 [facility] Comment on above: Performed By: #### 5 0103 #### [facility] [address] [place] [address], [facility] Nucleated RBC/100 WBC (Bld) [Ratio] 0 % Normal 0-0 [facility] Comment on above: Performed By: #### 5 0103 #### [facility] [address] [place] [address], [facility] OVALOCYTES Slight Normal [facility] Comment on above: Performed By: #### 5 0103 #### [facility] [address] [place] [address], [facility] PLAT CNT 91 10*3/uL Low 150-400 [facility] Comment on above: Performed By: #### 5 0103 #### [facility] [address] [place] [address], [facility] POIK Moderate Normal [facility] Comment on above: Performed By: #### 5 0103 #### [facility] [address] [place] [address], [facility] POLY Slight Normal [facility] Comment on above: Performed By: #### 5 0103 #### [facility] [address] [place] [address], [facility] RBC (Bld) [#/Vol] 3.08 10*6/uL Low 4.20-5.70 [facility] Comment on above: Performed By: #### 5 0103 #### [facility] [address] [place] [address], [place] WBC (Bld) [#/Vol] 2.21 10*3/uL Low 4.00-10.60 [facility] Comment on above: Performed By: #### 5 3 #### [facility] [address] [place] [address], [facility] COMP METABOLIC PANELon 09-15 Albumin [Mass/Vol] 3.6 g/dL Normal 3.5-5.7 [facility] Comment on above: Performed By: #### 5 102, [id number] #### [facility] [address] [place] [address], [facility] ALKALINE PHOSPH 57 IU/L Normal 34-104 [facility] Comment on above: Performed By: #### 5 102, [id number] #### [facility] [address] [place] [address], [place] ALT [Catalytic activity/Vol] 24 U/L Normal 7-52 [facility] Comment on above: Performed By: #### 102, [id number] #### [facility] [address] [place] [address], [place] AST [Catalytic activity/Vol] 29 U/L Normal 13-39 [facility] Comment on above: Performed By: #### 5 102, [id number] #### [facility] [address] [place] [address], [place] Bilirubin [Mass/Vol] 0.5 mg/dL Normal 0.3-1.0 [facility] Comment on above: Performed By: #### 5 102, [id number] #### [facility] [address] [place] [address], [place] Calcium [Mass/Vol] 8.8 mg/dL Normal 8.6-10.3 [facility] Comment on above: Performed By: #### 5 102, [id number] #### [facility] [address] [place] [address], [place] Chloride [Moles/Vol] 104 mmol/L Normal 98-107 [facility] Comment on above: Performed By: #### 5 102, [id number] #### [facility] [address] [place] [address], [place] CO2 [Moles/Vol] 26 mmol/L Normal 21-31 [facility] Comment on above: Performed By: #### 5 , [id number] #### [facility] [address] [place] [address], [place] Creatinine [Mass/Vol] 0.79 mg/dL Normal 0.70-1.30 [facility] Comment on above: Performed By: #### 5 102, [id number] #### [facility] [address] [place] [address], [place] GFR/1.73 sq M.predicted among blacks MDRD (S/P/Bld) [Vol rate/Area] mL/min/{1.73_m2} Normal >60 [facility] Comment on above: Result Comment: Calc ulation may not be valid for patients over 70 years Performed By: #### 5 102, [id number] #### [facility] [address] [place] [address], [place] GFR/1.73 sq M.predicted among non-blacks MDRD (S/P/Bld) [Vol rate/Area] mL/min/{1.73_m2} Normal >60 [facility] Comment on above: Result Comment: Calc ulation may not be valid for patients over 70 years Performed By: #### 5 102, 82449 #### [facility] [address] [place] [address], [place] Glucose [Mass/Vol] 123 mg/dL High 70-100 [facility] Comment on above: Performed By: #### 5 102, [id number] #### [facility] [address] [place] [address], [place] Potassium [Moles/Vol] 3.8 mmol/L Normal 3.5-5.1 [facility] Comment on above: Performed By: #### 5 010, [id number] #### [facility] [address] [place] [address], [place] Protein [Mass/Vol] 6.8 g/dL Normal 6.0-8.3 [facility] Comment on above: Performed By: #### 5 0103, 62919 #### [facility] [address] [place] [address], [facility] Sodium [Moles/Vol] 137 mmol/L Normal 136-145 [facility] Comment on above: Performed By: #### 5 0103, [id number] #### [facility] [address] [place] [address], [facility] Urea nitrogen [Mass/Vol] 10 mg/dL Normal 7-25 [facility] Comment on above: Performed By: #### 5 0103, [id number] #### [facility] [address] [place], [place] [id number] [place] [address] Vital Signs Date Time Vital Sign Value Performing Clinician Facility 07-19-2023 13:00-0400 Diastolic blood pressure 74 mm[Hg] Robert Jason Other [place] [facility] Other 07-19-2023 13:00-0400 SaO2% (BldA) [Mass fraction] 99 % Robert Gomez Other [place] [facility] Other 07-19-2023 13:00-0400 Systolic blood pressure 136 mm[Hg] Robert Gomez Other [facility] Other 05-09-2023 09:23-0400 Blood Pressure Location Ivaniabinh Vickey [facility] 05-09-2023 09:23-0400 Diastolic blood pressure 63 mm[Hg] Erwin Hurd [facility] 05-09-2023 09:23-0400 Heart rate 97 /min Ivaniabinh Vickey [facility] 05-09-2023 09:23-0400 SaO2% (BldA) [Mass fraction] 99 % Erwin Hurd [facility] 05-09-2023 09:23-0400 Systolic blood pressure 129 mm[Hg] Erwin Vickey [facility] 04-08-2023 08:29-0400 Diastolic blood pressure 56 mm[Hg] Erwin Vickey [facility] 04-08-2023 08:29-0400 Heart rate 98 /min Erwin Hurd [facility] 04-08-2023 08:29-0400 Mean blood pressure 82 mm[Hg] Erwin Vickey [facility] 04-08-2023 08:29-0400 Systolic blood pressure 134 mm[Hg] Erwin Sheaan [facility] 04-08-2023 08:29-0400 Heart rate 100 /min Erwin Hurd [facility] 04-08-2023 08:29-0400 SaO2% (BldA) [Mass fraction] 100 % Erwin Hurd [facility] 04-08-2023 08:29-0400 Respiratory rate 17 /min Erwin Hurd [facility] 04-08-2023 08:29-0400 Diastolic blood pressure 66 mm[Hg] Erwin Hurd [facility] 04-08-2023 08:29-0400 Mean blood pressure 85 mm[Hg] Erwin Vickey [facility] 04-08-2023 08:29-0400 Systolic blood pressure 124 mm[Hg] Erwin Sheaan [facility] 03-10-2023 12:03-0400 Hourly Rounding [facility] 03-10-2023 12:03-0400 Promise to Return [facility] 03-10-2023 11:37-0400 Heart rate 75 /min [facility] 03-10-2023 11:37-0400 SaO2% (BldA) [Mass fraction] 100 % [facility] 03-10-2023 11:37-0400 Body temperature 97.7 [degF] [facility] 03-10-2023 11:37-0400 Diastolic blood pressure 54 mm[Hg] [facility] 03-10-2023 11:37-0400 Mean blood pressure 81 mm[Hg] [facility] 03-10-2023 11:37-0400 Systolic blood pressure 136 mm[Hg] [facility] 03-10-2023 11:00-0400 [facility] 03-10-2023 11:00-0400 Promise to Return [facility] 03-10-2023 10:00-0400 [facility] Round[facility] 03-10-2023 10:00-0400 Promise to Return [facility] 03-10-2023 08:48-0400 gluc 116 mg/dL [facility] 03-10-2023 08:13-0400 Heart rate 118 /min [facility] 03-10-2023 08:13-0400 SaO2% (BldA) [Mass fraction] 96 % [facility] 03-10-2023 08:13-0400 Body temperature 98.06 [degF] [facility] 03-10-2023 08:12-0400 Diastolic blood pressure 69 mm[Hg] [facility] 03-10-2023 08:12-0400 Mean blood pressure 90 mm[Hg] [facility] 03-10-2023 08:12-0400 Systolic blood pressure 131 mm[Hg] [facility] 03-10-2023 00:40-0400 Blood Pressure Location [facility] 03-10-2023 00:40-0400 Body temperature 97.7 [degF] [facility] 03-10-2023 00:40-0400 Diastolic blood pressure 65 mm[Hg] [facility] 03-10-2023 00:40-0400 Heart rate 120 /min [facility] 03-10-2023 00:40-0400 Mean blood pressure 80 mm[Hg] [facility] 03-10-2023 00:40-0400 Respiratory rate 18 /min [facility] 03-10-2023 00:40-0400 SaO2% (BldA) [Mass fraction] 97 % [facility] 03-10-2023 00:40-0400 Systolic blood pressure 109 mm[Hg] [facility] 03-09-2023 17:18-0400 gluc 98 mg/dL [facility] 03-09-2023 11:50-0400 gluc 219 mg/dL [facility] 03-09-2023 09:22-0400 Heart rate 116 /min [facility] 03-09-2023 03:42-0400 Mean blood pressure 94 mm[Hg] [facility] 03-08-2023 16:08-0400 Mean blood pressure 100 mm[Hg] [facility] 03-08-2023 16:00-0400 Respiratory rate 18 /min [facility] 03-08-2023 11:00-0400 Respiratory rate 16 /min [facility] 03-08-2023 05:51-0400 Body temperature 97.16 [degF] [facility] 03-08-2023 05:51-0400 Mean blood pressure 105 mm[Hg] [facility] 03-07-2023 21:15-0400 Body temperature 98.06 [degF] [facility] 03-06-2023 09:34-0400 Heart rate 92 /min [facility] 03-05-2023 08:00-0400 Heart rate 84 /min [facility] 03-03-2023 12:51-0400 Body temperature 98.42 [degF] [facility] 03-03-2023 12:51-0400 Respiratory rate 17 /min [facility] 03-03-2023 12:40-0400 Respiratory rate 18 /min [facility] 03-03-2023 12:35-0400 Respiratory rate 18 /min [facility] 03-03-2023 12:26-0400 Body temperature 98.06 [degF] [facility] 03-01-2023 18:04-0400 Heart rate 120 /min [facility] 03-01-2023 17:45-0400 Heart rate 113 /min [facility] 03-01-2023 16:45-0400 Heart rate 108 /min [facility] 02-23-2023 11:14-0400 gluc [facility] 02-17-2023 10:28-0400 Blood Pressure Location [facility] Vickey [facility] 02-17-2023 10:28-0400 Diastolic blood pressure 63 mm[Hg] Erwin Sheaan [facility] 02-17-2023 10:28-0400 Heart rate 108 /min [facility] Sheaan [facility] 02-17-2023 10:28-0400 SaO2% (BldA) [Mass fraction] 100 % [facility] Sheaan [facility] 02-17-2023 10:28-0400 Systolic blood pressure 117 mm[Hg] Erwin Hurd [facility] 02-15-2023 16:53-0400 Diastolic blood pressure 85 mm[Hg] Brennon Hartmane [facility] 02-15-2023 16:53-0400 Heart rate 108 /min Brennon Nancy [facility] 02-15-2023 16:53-0400 Mean blood pressure 109 mm[Hg] Brennon Nancy [facility] 02-15-2023 16:53-0400 Respiratory rate 18 /min Brnenon Nancy [facility] 02-15-2023 16:53-0400 SaO2% (BldA) [Mass fraction] 96 % Brennon Nancy [facility] 02-15-2023 16:53-0400 Systolic blood pressure 156 mm[Hg] Brennon Nancy [facility] 02-15-2023 16:00-0400 Diastolic blood pressure 66 mm[Hg] Brennon Nancy [facility] 02-15-2023 16:00-0400 Heart rate 109 /min Brennon Nancy [facility] 02-15-2023 16:00-0400 Respiratory rate 16 /min Brennon Nancy [facility] 02-15-2023 16:00-0400 SaO2% (BldA) [Mass fraction] 100 % Brennon Nancy [facility] 02-15-2023 16:00-0400 Systolic blood pressure 154 mm[Hg] Brennon Nancy [facility] 02-15-2023 15:00-0400 Diastolic blood pressure 71 mm[Hg] Brennon Nancy [facility] 02-15-2023 15:00-0400 Heart rate 91 /min Brennon Cruz [facility] 02-15-2023 15:00-0400 SaO2% (BldA) [Mass fraction] 99 % Brennon Cruz [facility] 02-15-2023 15:00-0400 Systolic blood pressure 155 mm[Hg] Brennon Cruz [facility] 02-15-2023 11:02-0400 Body temperature 98.06 [degF] Brennon Cruz [facility] 02-15-2023 11:02-0400 Heart rate 118 /min Brennon Cruz [facility] 02-10-2023 13:15-0400 Blood Pressure Location Erwin Vickey [facility] 02-10-2023 13:15-0400 Diastolic blood pressure 75 mm[Hg] Erwin Vickey [facility] 02-10-2023 13:15-0400 Heart rate 89 /min Erwin Vickey [facility] 02-10-2023 13:15-0400 SaO2% (BldA) [Mass fraction] 100 % Mohamed Vickey [facility] 02-10-2023 13:15-0400 Systolic blood pressure 119 mm[Hg] Mohamed Vickey [facility] 01-06-2023 11:40-0400 Blood Pressure Location Mohamed Vickey [facility] 01-06-2023 11:40-0400 Diastolic blood pressure 60 mm[Hg] Mohbinh Vickey [facility] 01-06-2023 11:40-0400 Heart rate 98 /min Mohbinh Vickey [facility] 01-06-2023 11:40-0400 SaO2% (BldA) [Mass fraction] 99 % Mohamed Vickey [facility] 01-06-2023 11:40-0400 Systolic blood pressure 130 mm[Hg] Mohamed Vickey [facility] 12-23-2022 14:35-0400 Blood Pressure Location Mohamed Vickey [facility] 12-23-2022 14:35-0400 Diastolic blood pressure 70 mm[Hg] Mohamed Vickey [facility] 12-23-2022 14:35-0400 Heart rate 96 /min Erwin Vickey [facility] 12-23-2022 14:35-0400 SaO2% (BldA) [Mass fraction] 100 % Mohbinh Vickey [facility] 12-23-2022 14:35-0400 Systolic blood pressure 120 mm[Hg] Mohamed Vickey [facility] 12-09-2022 11:43-0500 Blood Pressure Location Mohbinh Vickey [facility] 12-09-2022 11:43-0500 Diastolic blood pressure 69 mm[Hg] Mohamed Vickey [facility] 12-09-2022 11:43-0500 Heart rate 88 /min Mohamed Vickey [facility] 12-09-2022 11:43-0500 SaO2% (BldA) [Mass fraction] 96 % Mohamed Vickey [facility] 12-09-2022 11:43-0500 Systolic blood pressure 105 mm[Hg] Mohamed Vickey [facility] 11-22-2022 11:42-0500 Blood Pressure Location Erwin Hurd [facility] 11-22-2022 11:42-0500 Diastolic blood pressure 80 mm[Hg] Erwin Hurd [facility] 11-22-2022 11:42-0500 Heart rate 75 /min Erwin Hurd [facility] 11-22-2022 11:42-0500 SaO2% (BldA) [Mass fraction] 98 % [facility] Hurd [facility] 11-22-2022 11:42-0500 Systolic blood pressure 130 mm[Hg] [facility] H[facility] Encounters Encounter Date Encounter Type Care Provider Facility Start: 09-21-2023 Evaluation and management of inpatient JUHI ALLEN [facility] Start: 09-19-2023 Evaluation and management of inpatient TANJA NUGENT [facility] Start: 09-18-2023 [facility] Start: 09-18-2023 End: 09-26-2023 Evaluation and management of inpatient [facility] Start: 09-18-2023 Emergency department patient visit [facility] Start: 08-31-2023 End: 09-01-2023 ambulatory [facility] Start: 07-21-2023 Telephone encounter Robert Gomez [facility] Start: 07-21-2023 End: 07-21-2023 ambulatory Brennon Nancy Facility:[facility] Start: 07-19-2023 End: 07-19-2023 ambulatory Robert Gomez Other [facility] Other Start: 07-19-2023 Office outpatient vi sit 25 minutes Robert Gomez [facility] Start: 06-20-2023 ambulatory [facility] Start: 05-16-2023 ambulatory ERWIN HURD [facility] Start: 05-09-2023 End: 05-10-2023 ambulatory Erwin Hurd Facility:[facility] Start: 05-09-2023 End: 05-09-2023 Patient encounter procedure Erwin Hurd [facility] Start: 04-11-2023 End: 04-11-2023 ambulatory Erwin Hurd Facility:[facility] Start: 04-08-2023 End: 04-09-2023 ambulatory Erwin Hurd Facility:[facility] Start: 04-08-2023 End: 04-08-2023 Patient encounter procedure Erwin Hurd [facility] Start: 04-04-2023 End: 04-05-2023 ambulatory Erwin Hurd Facility:[facility] Start: 04-04-2023 End: 04-04-2023 Patient encounter procedure Erwin Hurd [facility] Start: 03-30-2023 End: 04-14-2023 Pre-admission assessment Erwin Hurd [facility] Start: 03-17-2023 End: 03-18-2023 ambulatory Erwin Hurd Facility:[facility] Start: 03-08-2023 End: 03-09-2023 ambulatory Bekah LAUREN Facility:[facility] Start: 02-23-2023 End: 03-10-2023 Evaluation and management of inpatient Alaa ALAJOSH Facility:[facility] Start: 02-23-2023 End: 03-10-2023 Evaluation and management of inpatient Alaa ALASAIGEAD [facility] Start: 02-18-2023 End: 02-18-2023 ambulatory Erwin Hurd Facility:[facility] Start: 02-18-2023 Emergency department patient visit Brennon Cruz Facility:[facility] Start: 02-17-2023 End: 02-18-2023 ambulatory Erwin Evans Vickey Facility:[facility] Start: 02-17-2023 End: 02-17-2023 Patient encounter procedure Erwin SchuylerOtilia Hurd [facility] Start: 02-15-2023 End: 02-15-2023 Emergency department patient visit Brennon Cruz Facility:[facility] Start: 02-15-2023 End: 02-15-2023 Emergency department patient visit Brennon Cruz [facility] Start: 02-15-2023 End: 02-16-2023 Pre-admission assessment Erwin Hurd [facility] Start: 02-14-2023 End: 02-16-2023 Pre-admission assessment Erwin Hurd [facility] Start: 02-10-2023 End: 02-11-2023 ambulatory Erwin Hurd Facility:[facility] Start: 02-10-2023 End: 02-10-2023 Patient encounter procedure Erwin Hurd [facility] Start: 02-09-2023 End: 02-09-[address] LUCILLE HORTA Facility:[facility] Start: 01-30-2023 Evaluation and management of inpatient LINUS HER [facility] Start: 01-29-2023 End: 01-29-2023 [facility]ulatory [facility] Start: 01-29-2023 End: 02-03-2023 Evaluation and management of inpatient ERWIN HURD [facility] Start: 01-29-2023 End: 01-29-[address] LUCILLE HORTA Facility:[facility] Start: 01-06-2023 End: 01-07-2023 ambulatory Erwin Hurd Facility:[facility] Start: 01-06-2023 End: 01-06-2023 Patient encounter procedure Erwin Hurd [facility] Start: 12-23-2022 End: 12-24-2022 ambulatory Erwin Hurd Facility:[facility] Start: 12-23-2022 End: 12-23-2022 Patient encounter procedure Erwin Hurd [facility] Start: 12-14-2022 End: 12-14-2022 ambulatory [facility] Start: 12-09-2022 End: 12-10-2022 ambulatory Erwin Hurd Facility:[facility] Start: 12-09-2022 End: 12-09-2022 Patient encounter procedure Erwin Hurd [facility] Start: 12-02-2022 Evaluation and management of inpatient TANJA [facility] Start: 11-29-2022 End: 11-30-2022 Pre-admission assessment Erwin Hurd [facility] Start: 11-29-2022 Emergency department patient visit MICHELLE CONWAY [facility] Start: 11-29-2022 End: 12-03-2022 [facility]: 11-22-[facility]22 End: 11-23-2022 ambulatory Erwin Hurd Facility:[facility] Start: 11-22-2022 End: 11-22-2022 Patient encounter procedure Erwin Hurd [facility] Start: 11-13-2022 End: 11-15-2022 ambulatory UNKNOWN PROVIDER Facility:[facility] Start: 11-13-2022 Emergency department patient visit REBECCA ZUNIGA [facility] Start: 11-13-2022 End: 11-16-2022 Evaluation and management of inpatient [facility] Start: 11-13-2022 End: 11-13-[address] LUCILLE HORTA Facility:[facility] Start: 11-08-2022 End: 01-07-2023 Pre-admission assessment LUCILLE HORTA [facility] Start: 11-08-2022 Evaluation and management of inpatient TANJA NUGENT [facility] Start: 11-05-2022 Evaluation and management of inpatient DOROTHY DOMINGUEZ [facility] Start: 11-04-2022 Evaluation and management of inpatient [facility] Start: 11-04-2022 [facility] Start: 11-03-2022 Encounter for other preprocedural examination [facility] Start: 11-03-2022 End: 11-09-2022 Encounter for other preprocedural examination [facility] Start: 11-03-2022 End: 11-09-2022 Evaluation and management of inpatient [facility] Start: 11-01-2022 End: 11-02-2022 ambulatory ERWIN HURD Facility:[facility] Start: 11-01-2022 End: 11-02-2022 [facility] Start: 10-27-2022 Encounter for other preprocedural examination [facility] Start: 10-26-2022 End: 10-27-2022 ambulatory [facility] Start: 10-20-2022 End: 10-21-[address] MARCO A OSWALD Facility:[facility] Start: 10-14-2022 End: 10-14-2022 ambulatory MARCO A OSWALD [facility] Start: 10-07-2022 End: 10-07-2022 ambulatory MANISHA VELASQUEZ [facility] Start: 10-06-2022 End: 10-06-2022 ambulatory DAVE CUEVAS [facility] Start: 05-12-2021 End: 05-13-2021 ambulatory LUCILLE HORTA Facility:[facility] Procedures Date Procedure Procedure Detail Performing Clinician Start: 04-11-2023 Surgical debridement of wound Ivaniabinh Sheaan Start: 03-03-2023 Amputation above-knee A haley ALAHMAD Start: 11-29-2022 H/O: major vascular surgery Erwin Sheaan Start: 10-07-2022 Follow-up visit ERWIN HURD Appendectomy Alaa ALAHMAD Cholecystectomy Alaa ALAHMAD Coronary artery bypa ss grafts x 2 Alaa ALAHMAD Femorofemoral crosso bharath bypass graft Erwin Hurd Vascular surgery (qu alifier value) Alaa ALAHMAD Vascular surgery (qu alifier value) Erwin Hurd Payers Date Payer Category Payer Medicare [id number] 1958 Private Health Insurance CLI [id number] 1945 Unknown [id number] 2.16.8 40.1.043025.3.579.2.647 1945 Unknown [id number] 2.16. 840.1.542691.3.579.2.732 1946 Unknown [id number] 2.16. 840.1.021998.3.579.2.732 1946 Unknown [id number] 2.16.84 0.1.640110.3.579.2.593 1946 Unknown [id number] 2.16.84 0.1.950963.3.579.2.593 1946 Unknown [id number] 2.16.84 0.1.018348.3.579.2.593 1946 Unknown [id number] 2.16.84 0.1.655773.3.579.2.593 1946 Unknown [id number] 2.16.84 0.1.467117.3.579.2.593 1946 Unknown [id number] 2.16.8 40.1.685524.3.579.2.727 1946 Unknown [id number] 2.16.8 40.1.385023.3.579.2.727 1946 Unknown [id number] 2.16.8 40.1.596049.3.579.2.727 1946 Unknown [id number] 2.16.8 40.1.784552.3.579.2.727 1946 Unknown [id number] 2.16.8 40.1.032637.3.579.2.727 1946 Unknown [id number] 2.16.8 40.1.899690.3.579.2.727 1946 Unknown [id number] 2.16.8 40.1.409115.3.579.2.727 1946 Unknown [id number] 2.16.8 40.1.888241.3.579.2.727 1946 Unknown [id number] 2.16.8 40.1.194393.3.579.2.727 1946 Unknown [id number] 2.16.8 40.1.598914.3.579.2.727 1946 Unknown [id number] 2.16.8 40.1.579594.3.579.2.727 1946 Unknown [id number] 2.16.8 40.1.985098.3.579.2.727 1946 Unknown [id number] 2.16.8 40.1.039643.3.579.2.727 1946 Unknown [id number] 2.16.8 40.1.678912.3.579.2.727 1946 Unknown [id number] 2.16.8 [id number] 1945 Unknown [id number] 2.16.8 [id number] 1945 Unknown [id number] 2.16.8 [id number] 1945 Unknown [id number] 2.16.8 [id number] 1945 Unknown [id number] 2.16. [id number] Private Health Insurance Unknown [id number] Social History Date Type Detail Facility Start: 11-22-2022 End: 05-09-2023 Tobacco smoking status Ex-smoker (finding) [facility] Tobacco smoking status Never [facility] Sex Assigned At Male [facility] Functional Status Date Assessment Result Facility 05-09-2023 Functional Status No [facility] 04-08-2023 Functional Status No [facility] 02-23-2023 Functional Status N/A [facility] 02-23-2023 Functional Status [facility] 02-17-2023 Functional Status N/A [facility] 02-15-2023 Functional Status N/A [facility] 02-10-2023 Functional Status No [facility] 01-06-2023 Functional Status No [facility] 12-23-2022 Functional Status No [facility] 12-09-2022 Functional Status No [facility] 11-22-2022 Functional Status No [facility] Clinical Notes 10-07-2022 to 09-26-2023 Note Date & Type Note Facility 09-26-2023 Note [facility] 09-25-2023 Note [facility] 09-25-2023 Note [facility] 09-25-2023 Note [facility] 09-25-2023 Note Awaiting IV antibiot ic approval and delivery. Sent updates to [facility]. AVS updated. OTM will continue to follow. [facility] 09-24-2023 Note [facility] 09-24-2023 Note [facility] 09-24-2023 Note [facility] 09-24-2023 Note [facility] 09-23-2023 Note [facility] 09-23-2023 Note [facility] 09-23-2023 Note [facility] 09-23-2023 Note [facility] 09-22-2023 Note [facility] 09-22-2023 Note [facility] 09-22-2023 Note [facility] 09-22-2023 Note [facility] 09-22-2023 Note [facility] 09-22-2023 Note [facility] 09-22-2023 Note This report has been cancelled. [facility] 09-21-2023 Note [facility] 09-21-2023 Note [facility] 09-20-2023 Note [facility] 09-20-2023 Note [facility] 09-20-2023 Note [facility] 09-20-2023 Note [facility] 09-19-2023 Note [facility] 09-19-2023 Note [facility] 09-18-2023 Note [facility] 08-31-2023 Note Continue IV antibiot ics and serial examination. [facility] 08-31-2023 Note [facility] 08-12-2023 Note Scheduled EGD/Cln/An emia/GI Bleed/EV 08/15/23 @1230, [facility], Antonio Hernandez, #[id number]. Urgent referral from Dr. Horta scanned in Media 08/12/23. Patient holding blood thinner since 07/12/23. 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 Therapy with home health for prosthetic training when obtained-ingride nt reports has this in place If tolerates temp prosthesis can f/u 3-6 months for final definitive prosthesis evaluation/pre scription. Monitor for skin breakdown. [facility] Other 09-11-2023 NoteAKA stump and physical therapy. Follow- up in a year.[facility] NoteContinue wound VAC and follow-up in a month. [facility]08-07-20[facility]2023 [id number]:127[facility]06-01-[facility] Evaluation + Plan noteExtracted from: Title:Discharge Note Author:Alison FINNEGAN Date:03/10/23 Hemodynamically stable condi tion Discharge To, Anticipated II - Retirement Unit Discharged to - Home with family care Transported by, Anticipated - EMS Discharge Status: Improved Discharge Instructions Given: To patient Discharge disposition: SNF Prescriptions reviewed with Patient 48 minutes spent in discharge time with patient, collaborating MD, nursing staff, CRM, Discharge Diet(s): Calorie Controlled- 1800 Calorie Diet, Other: ensure supplements BID as snacks, aspiration precautions (02/25/23 11:04:00) Prescriptions cilostazol 100 mg Tab, 100 mg= 1 tab(s), Oral, BID ertapenem 1 g Inj, 1000 mg= 1 EA, IV Piggyback, Daily oxycodone 10 mg oral tablet, 10 mg= 1 tab(s), Oral, q6hr, PRN Home acetaminophen 325 mg Tab, 650 mg= 2 tab(s), Oral, q6hr, PRN aspirin 81 mg Oral EC Tab, 81 mg= 1 tab(s), Oral, Daily biotin 300 mcg oral tablet, 300 mcg= 1 tab(s), Oral, BID cholecalciferol 1000 intl units (25 mcg) oral tablet, 50 mcg= 2 tab(s), Oral, Daily clopidogrel 75 mg Tab, 75 mg= 1 tab(s), Oral, Daily cyanocobalamin 1000 mcg/mL Inj, 1000 mcg= 1 mL, SubCutaneous, q2wk digoxin 125 mcg (0.125 mg) Tab, 125 mcg= 1 tab(s), Oral, Daily Ensure, 237 mL, Oral, BIDWM famotidine 40 mg Tab, 40 mg= 1 tab(s), Oral, Daily Angel, Oral, BID magnesium oxide 400 mg Tab, 400 mg= 1 tab(s), Oral, Daily metformin 500 mg Tab, 500 mg= 1 tab(s), Oral, Supper nystatin 100,000 units/mL Oral Susp, [id number] unit(s)= 15 mL, Oral, QIDACHS oxymetazoline Nasal 0.05% [place], 2 spray(s), Nasal, BID, PRN senna 8.6 mg Tab, 17.2 mg= 2 tab(s), Oral, BID, PRN SEROquel 25 mg Tab, 25 mg= 1 tab(s), Oral, Bedtime sodium chloride nasal 0.65% spray, 2 spray(s), Nasal, q2hr, PRN Verquvo 10 mg oral tablet, 10 mg= 1 tab(s), Oral, Daily With When Contact Information LUCILLE HORTA In 3 days 02/28/2023 EDT [address] [facility] [place] [address] Business (1) Additional Instructions: The office is closed on Fridays. Please contact your PCP on Tuesday, February 28 for an appointment. Thank you! Chong Coe Within 7 to 10 days [address] [place] [address]- Business (1) Additional Instructions: Erwin Hurd Within 5 to 7 days [address] [place] [address]- Business (1) Additional Instructions: Dami WISE, TAL Guidry Within 2 to 4 weeks [address] [place] [address]- Additional Instructions: Diabetes Mellitus and Nutrition, Adult Diabetes Mellitus and Foot Care Wound Infection, [id number] Extracted from: Title:APSO Note Author:Megan DONIS Date:03/09/23 1. Acute metabolic encephalo anthony (G93.41: Metabolic encephalopathy) - Per Neuro: altered mental status may be secondary to acute metabolic encephalopathy secondary to below infection,and/ or could be secondary to altered sleep wake cycle, - Improved mentation back to baseline. - MRI brain no evidence of acute intracranial process - Neurology consulted, ? pain meds, poor sleep adn infection likely cause of encephalopathy. signed off. Seroquel now just at HS. 2. Post-operative infection (T81.40XA: Infection following a procedure, unspecified, initial encounter) - left groin infection, Dr. Hurd recommended continue wound vac to be changed every 3 days with black foam, 125 mmHg - On invanz IV daily per ID has 1.5 weeks left. - picc line in place , 3. 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 -Spoke to 03/08 ok for pt to d/c w/follow up 1 week from 03/10; Pt to continue with wound vac; iv antibiotics x 1.5 weeks per ID. Dressing changes as per orders. Stump car tracer to right stump. -Severe malnutrition, dietitian consult reviewed, encourage oral intake 4. Peripheral vascular disease (I73.9: Peripheral vascular disease, unspecified) - As above 5. Anemia of chronic disease (D63.8: Anemia in other chronic diseases classified elsewhere) - Transfused 2 Us of PRBC (03/01) - Hemoglobin stable -Received iron infusion 6. Diabetes (E11.9: Type 2 diabetes mellitus without complications) -Accu-Chek ACHS, SSI 7. Chronic GERD (K21.9: Gastro-esophageal reflux disease without esophagitis) - Pepcid 8. No contraindication to deep vein thrombosis (DVT) prophylaxis (Z78.9: Other specified health status) SCDs Lovenox dc'd due to left nares epistaxis; - afrin Orders: oxymetazoline nasal, 2 spray(s), [place], Nasal, TID for 72 hour(s), Stop date 03/12/23 11:25:00 EDT, NOW, Start date 03/09/23 11:26:00 EDT Extracted from: Title:APSO Note Author:Mgean DONIS Date:03/08/23 1. Acute metabolic encephalo anthony (G93.41: Metabolic encephalopathy) - Per Neuro: altered mental status may be secondary to acute metabolic encephalopathy secondary to below infection,and/ or could be secondary to altered sleep wake cycle, - Improved mentation today. - MRI brain no evidence of acute intracranial process - Neurology consulted, ? pain meds, poor sleep adn infection likely cause of encephalopathy. Seroquel now just at HS. 2. Post-operative infection (T81.40XA: Infection following a procedure, unspecified, initial encounter) - left groin infection, Dr. Hurd recommended continue wound vac to be changed every 3 days with black foam, 125 mmHg - On invanz IV daily per ID has 1.5 weeks leeft. - picc line in place , 3. 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 Peripheral vascular disease (I73.9: Peripheral vascular disease, unspecified) - As above 5. Anemia of chronic disease (D63.8: Anemia in other chronic diseases classified elsewhere) - Transfused 2 Us of PRBC (03/01) - Hemoglobin stable -Received iron infusion 6. Diabetes (E11.9: Type 2 diabetes mellitus without complications) -Accu-Chek ACHS, SSI 7. Chronic GERD (K21.9: Gastro-esophageal reflux disease without esophagitis) - Pepcid 8. No contraindication to deep vein thrombosis (DVT) prophylaxis (Z78.9: Other specified health status) SCDs and Lovenox Extracted from: Title:Progress Note * Author:Chong Coe M.D Date:03/08/23 Impression and Plan Diagnosis: Left groin wound fem pop infection. Orders To finish total of 6 week. Has about 1 to 1.5 weeks left. After that can pull PICC. . Extracted from: Title:APSO Note-neurology Author:Alise GUARDADO, Fabian tonia Date:03/08/23 Reason for consult: Persistent encephalopathy ASSESSMENT: 1. 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 Severe peripheral vasculopathy. 2. History of femoral-popliteal bypass complicated by postoperative left groin wound infection and had been on vancomycin, cefepime, daptomycin. Currently on ertapenem. 3. Persistent encephalopathy, mild. Seemingly fluctuating in terms of alertness and orientation. I suspect this is related to pain medications, poor sleep, recent infectious history, and possibly lingering effects of cefepime. Nonacute appearing MRI on March 01, 2023. PLAN: No other recommendations at this time. 1. Post-operative infection (T81.40XA: Infection following a procedure, unspecified, initial encounter) 2. Critical limb ischemia of right lower extremity (I70.221: Atherosclerosis of [place] arteries of extremities with rest pain, right leg) 3. Peripheral vascular disease (I73.9: Peripheral vascular disease, unspecified) 4. Acute metabolic encephalopathy (G93.41: Metabolic encephalopathy) 5. Anemia of chronic disease (D63.8: Anemia in other chronic diseases classified elsewhere) 6. Diabetes (E11.9: Type 2 diabetes mellitus without complications) 7. Chronic GERD (K21.9: Gastro-esophageal reflux disease without esophagitis) 8. No contraindication to deep vein thrombosis (DVT) prophylaxis (Z78.9: Other specified health status) Extracted from: Title:APSO Note Author:Katheryn WISE, Aiden Date: Assessment/Plan 1. Acute metabolic encephalopathy (G93.41: Metabolic encephalopathy) - Per Neuro: altered mental status may be secondary to acute metabolic encephalopathy secondary to below infection,and/ or could be secondary to altered sleep wake cycle, - The patient slightly confused again this morning - MRI brain no evidence of acute intracranial process - Neurology consulted, I discussed the case today with Dr. Russell , the patient's confusion is likely due to above and Dr. Russell will reassess again tomorrow morning,Seroquel changed from twice daily to daily at night only, -I discussed the plan with his at bedside 2. Post-operative infection (T81.40XA: Infection following a procedure, unspecified, initial encounter) - left groin infection, Dr. Hurd recommended continue wound vac to be changed every 3 days with black foam, 125 mmHg - On invanz IV daily, to complete additional 3 weeks of antibiotics - picc line in place , -Obtain medical records 3. 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 Peripheral vascular disease (I73.9: Peripheral vascular disease, unspecified) - As above 5. Anemia of chronic disease (D63.8: Anemia in other chronic diseases classified elsewhere) - Transfused 2 Us of PRBC - Hemoglobin stable -Received iron infusion 6. Diabetes (E11.9: Type 2 diabetes mellitus without complications) -Accu-Chek ACHS, SSI 7. Chronic GERD (K21.9: Gastro-esophageal reflux disease without esophagitis) - Pepcid 8. No contraindication to deep vein thrombosis (DVT) prophylaxis (Z78.9: Other specified health status) SCDs and Lovenox 1. Post-operative infection (T81.40XA: Infection following a procedure, unspecified, initial encounter) 2. Critical limb ischemia of right lower extremity (I70.221: Atherosclerosis of [place] arteries of extremities with rest pain, right leg) 3. Peripheral vascular disease (I73.9: Peripheral vascular disease, unspecified) 4. Acute metabolic encephalopathy (G93.41: Metabolic encephalopathy) 5. Anemia of chronic disease (D63.8: Anemia in other chronic diseases classified elsewhere) 6. Diabetes (E11.9: Type 2 diabetes mellitus without complications) 7. Chronic GERD (K21.9: Gastro-esophageal reflux disease without esophagitis) 8. No contraindication to deep vein thrombosis (DVT) prophylaxis (Z78.9: Other specified health status) Orders: potassium chloride, 40 mEq = 2 tab(s), Tab-ER, Oral, Once, Stop date 03/07/23 12:00:00 EDT, Routine, Start date 03/07/23 12:00:00 EDT, 03/07/23 11:01:00 EDT Automated Diff Basic Metabolic Panel CBC w/ Auto Diff Consult to Wound Care eGFR Extracted from: Title:APSO Note Author:Jovanny WISE, Savage Castillo Date: 1. Post-operative infection (T81.40XA: Infection following a procedure, unspecified, initial encounter) - Atherosclerosis of [place] arteries of extremities with rest pain, right leg - 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 Call out yesterday. - On ASA, plavix, pletal Ordered: [facility] Hospital Care/Day High 50 Minutes [id number] 2. Critical limb ischemia of right lower extremity (I70.221: Atherosclerosis of [place] arteries of extremities with rest pain, right leg) - left groin infection, Dr. Hurd recommended continue wound vac to be changed every 3 days with black foam, 125 mmHg - On invanz IV daily, follow-up ID of 3 weeks of antibiotics - picc line in place Ordered: [facility] Hospital Care/Day High 50 Minutes [id number] 3. Peripheral vascular disease (I73.9: Peripheral vascular disease, unspecified) - As above Ordered: [facility] Hospital Care/Day High 50 Minutes [id number] 4. Acute metabolic encephalopathy (G93.41: Metabolic encephalopathy) - Pt maybe at a new baseline? - Per Neuro: altered mental status may be secondary to acute metabolic encephalopathy secondary to above infection,and/ or could be secondary to altered sleep wake cycle, - The patient slightly confused again this morning - Started on PO Seroquel bid this admission -> now changed to qpm as he was hypersomnolent this morning - MRI brain no evidence of acute intracranial process - Neurology consulted again today. Ordered: [facility] Hospital Care/Day High 50 Minutes [id number] 5. Anemia of chronic disease (D63.8: Anemia in other chronic diseases classified elsewhere) - Transfused 2 unit prbc 3 days ago - Hemoglobin stable - On iron infusion Ordered: [facility] Care/Day High 50 Minutes 22222 6. Diabetes (E11.9: Type 2 diabetes mellitus without complications) - Metformin and SSI Ordered: [facility] Care/Day High 50 Minutes 13782 7. Chronic GERD (K21.9: Gastro-esophageal reflux disease without esophagitis) - Pepcid Ordered: [facility] Care/Day High 50 Minutes 28291 8. No contraindication to deep vein thrombosis (DVT) prophylaxis (Z78.9: Other specified health status) SCDs and Lovenox Ordered: [facility] Hospital Care/Day High 50 Minutes [id number] D/C tomorrow if cleared by neurology. Labs ordered for repeat in AM. Extracted from: Title:APSO Note-neurology Author:Fabian Carrero RN Date:03/06/23 Reason for consult: Persistent encephalopathy ASSESSMENT: 1. 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 Severe peripheral vasculopathy. 2. History of femoral-popliteal bypass complicated by postoperative left groin wound infection and had been on vancomycin, cefepime, daptomycin. Currently on ertapenem. 3. Persistent encephalopathy. Seemingly fluctuating in terms of alertness and orientation. I suspect this is related to pain medications, poor sleep, recent infectious history, and possibly angering effects of cefepime. Nonacute appearing MRI on March 01, 2023. PLAN: 1. Checking serum ammonia level 2. Changing Seroquel 25 mg twice daily to 25 mg just at night 3. Consider limiting the oxycodone 4. Do not see current indication for repeat MRI study or any EEG studies. 1. Post-operative infection (T81.40XA: Infection following a procedure, unspecified, initial encounter) 2. Critical limb ischemia of right lower extremity (I70.221: Atherosclerosis of [place] arteries of extremities with rest pain, right leg) 3. Peripheral vascular disease (I73.9: Peripheral vascular disease, unspecified) 4. Acute metabolic encephalopathy (G93.41: Metabolic encephalopathy) 5. Anemia of chronic disease (D63.8: Anemia in other chronic diseases classified elsewhere) 6. Diabetes (E11.9: Type 2 diabetes mellitus without complications) 7. Chronic GERD (K21.9: Gastro-esophageal reflux disease without esophagitis) 8. No contraindication to deep vein thrombosis (DVT) prophylaxis (Z78.9: Other specified health status) Extracted from: Title:APSO Note Author:Savage Petty MD Date: 1. Post-operative infection (T81.40XA: Infection following a procedure, unspecified, initial encounter) - Atherosclerosis of [place] arteries of extremities with rest pain, right leg - Status post right above-knee amputation 03/03 - Will call Vickey for further recommendations - On ASA, plavix, pletal 2. Critical limb ischemia of right lower extremity (I70.221: Atherosclerosis of [place] arteries of extremities with rest pain, right leg) - left groin infection, Dr. Hurd recommended continue wound vac to be changed every 3 days with black foam, 125 mmHg - On invanz IV daily, follow-up ID of 3 weeks of antibiotics - picc line in place 3. Peripheral vascular disease (I73.9: Peripheral vascular disease, unspecified) - As above 4. Acute metabolic encephalopathy (G93.41: Metabolic encephalopathy) - Per Neuro: altered mental status may be secondary to acute metabolic encephalopathy secondary to above infection,and/ or could be secondary to altered sleep wake cycle, - The patient slightly confused again this morning - Started on PO seroquel bid this admission - MRI brain no evidence of acute intracranial process - Neurology consulted- Signed off 5. Anemia of chronic disease (D63.8: Anemia in other chronic diseases classified elsewhere) - Transfused 2 unit prbc 3 days ago - Hemoglobin stable - On iron infusion 6. Diabetes (E11.9: Type 2 diabetes mellitus without complications) - Metformin and SSI 7. Chronic GERD (K21.9: Gastro-esophageal reflux disease without esophagitis) - Pepcide 8. No contraindication to deep vein thrombosis (DVT) prophylaxis (Z78.9: Other specified health status) - SCD and Lovenox - We will DC once the patient is cleared by vascular. Extracted from: Title:APSO Note Author:Katheryn WISE, Abeer Date: 1. Critical limb ischemia of right lower extremity (I70.221: Atherosclerosis of [place] arteries of extremities with rest pain, right leg) Status post right above-knee amputation yesterday, the wound clean intact no redness, discussed with Dr. Hurd over the phone today plan to keep the patient in the hospital and reassess the wound, Dietitian consult, - On ASA, plavix, pletal 2. Post-operative infection (T81.40XA: Infection following a procedure, unspecified, initial encounter) - left groin infection, Dr. Hurd recommended continue wound vac to be changed every 3 days with black foam, 125 mmHg - On invanz IV daily, follow-up ID recommendation - picc line in place 3. Peripheral vascular disease (I73.9: Peripheral vascular disease, unspecified) - as above 4. Acute metabolic encephalopathy (G93.41: Metabolic encephalopathy) - altered mental status may be secondary to acute metabolic encephalopathy secondary to above, could be secondary to altered sleep wake cycle, The patient slightly confused in the morning started on PO seroquel bid this admission MRI brain no evidence of acute intracranial process Neurology consulted follow-up recommendation 5. Anemia of chronic disease (D63.8: Anemia in other chronic diseases classified elsewhere) Transfused 2 unit prbc 2 days ago Hemoglobin stable On iron infusion 6. Diabetes (E11.9: Type 2 diabetes mellitus without complications) - stable, on metformin and SSI ACHS subcutaneous 7. Chronic GERD (K21.9: Gastro-esophageal reflux disease without esophagitis) - stable, continue PO pepcid 8. No contraindication to deep vein thrombosis (DVT) prophylaxis (Z78.9: Other specified health status) - ordered SCDs, Lovenox 1. Post-operative infection (T81.40XA: Infection following a procedure, unspecified, initial encounter) 2. Critical limb ischemia of right lower extremity (I70.221: Atherosclerosis of [place] arteries of extremities with rest pain, right leg) 3. Peripheral vascular disease (I73.9: Peripheral vascular disease, unspecified) 4. Acute metabolic encephalopathy (G93.41: Metabolic encephalopathy) 5. Anemia of chronic disease (D63.8: Anemia in other chronic diseases classified elsewhere) 6. Diabetes (E11.9: Type 2 diabetes mellitus without complications) 7. Chronic GERD (K21.9: Gastro-esophageal reflux disease without esophagitis) 8. No contraindication to deep vein thrombosis (DVT) prophylaxis (Z78.9: Other specified health status) Orders: Automated Diff Basic Metabolic Panel CBC w/ Auto Diff Consult to Dietitian Adult eGFR This report was transcribed using voice recognition software , Every effort was made to ensure accuracy , however, inadvertently computerized network systems analyst mistakes may be present . Extracted from: Title:Progress Note * Author:Chong Coe M.D Date:03/04/23 Impression and Plan Diagnosis: Diagnosis: left groin wound fem pop infection partially treated already with 3 weeks of IV dapto/cefepime. . Orders Patient has been treated for a left groin wound postop vascular infection. Antibiotics were initially started after the infection was diagnosed at [facility]. Culture reportedly was negative per the . Patient was on daptomycin and cefepime. He was switched to ertapenem. He is to finish 3 weeks. Again without culture results to target specific bacteria hopefully ertapenem is going to continue to cover pathogens that may have been there. Patient while here also just had a KUB. Patient had already completed 3 weeks by the time he got here. My recommendation was to finish an additional 3 weeks of IV antibiotics concurrently this is ertapenem. Extracted from: Title:APSO Note Author:Katheryn WISE, Abeer Date: 1. Post-operative infection (T81.40XA: Infection following a procedure, unspecified, initial encounter) - left groin infection, Dr. Hurd recommended continue wound vac to be changed every 3 days with black foam, 125 mmHg - On invanz IV daily, follow-up ID recommendation - picc line in place 2. Critical limb ischemia of right lower extremity (I70.221: Atherosclerosis of [place] arteries of extremities with rest pain, right leg) plan for right AKA later on today - On ASA, plavix, pletal 3. Peripheral vascular disease (I73.9: Peripheral vascular disease, unspecified) - as above 4. Acute metabolic encephalopathy (G93.41: Metabolic encephalopathy) - altered mental status may be secondary to acute metabolic encephalopathy secondary to above, could be secondary to altered sleep wake cycle, The patient is more awake today started on PO seroquel bid this admission MRI brain no evidence of acute intracranial process Neurology consulted follow-up recommendation 5. Anemia of chronic disease (D63.8: Anemia in other chronic diseases classified elsewhere) Transfused 2 unit prbc 2 days ago Hemoglobin stable On iron infusion 6. Diabetes (E11.9: Type 2 diabetes mellitus without complications) - stable, on metformin and SSI ACHS subcutaneous 7. Chronic GERD (K21.9: Gastro-esophageal reflux disease without esophagitis) - stable, continue PO pepcid 8. No contraindication to deep vein thrombosis (DVT) prophylaxis (Z78.9: Other specified health status) - ordered SCDs, 1. Post-operative infection (T81.40XA: Infection following a procedure, unspecified, initial encounter) 2. Critical limb ischemia of right lower extremity (I70.221: Atherosclerosis of [place] arteries of extremities with rest pain, right leg) 3. Peripheral vascular disease (I73.9: Peripheral vascular disease, unspecified) 4. Acute metabolic encephalopathy (G93.41: Metabolic encephalopathy) 5. Anemia of chronic disease (D63.8: Anemia in other chronic diseases classified elsewhere) 6. Diabetes (E11.9: Type 2 diabetes mellitus without complications) 7. Chronic GERD (K21.9: Gastro-esophageal reflux disease without esophagitis) 8. No contraindication to deep vein thrombosis (DVT) prophylaxis (Z78.9: Other specified health status) Orders: Basic Metabolic Panel eGFR This report was transcribed using voice recognition software , Every effort was made to ensure accuracy , however, inadvertently computerized network systems analyst mistakes may be present . Extracted from: Title:LIZZETTE Post-operative Note---General Author: MD Horner Ahmad F Date:03/03/23 Plan Transfer/Discharge: Transfer/Discharge Discharge when meets criteria ( To home ). Extracted from: Title:LIZZETTE Pre-anesthesia - Adult 19 Author:Marianne torres MD, Ahmad F Date:03/03/23 Plan [place] [employer] (ASA) physical status classification: Class III. Anesthetic Preoperative Plan Anesthesia: General. . Anesthetic plan, risks, benefits, and alternatives discussed with the patient and/or family. Risks discussed: nausea, vomiting, headache, sore throat, dental injury, serious complications. Patient verbalized understanding. Communication: face to face with (patient 5 minutes, Pt educated on the importance of smoking cessation.). Extracted from: Title:APSO Note-neurology Author:Fabian Carrero RN Date:03/02/23 The patient is a 77-year-old male with a history of peripheral vascular disease requiring surgery and secondary nonhealing wounds over several weeks admitted to the hospital with treatment of the nonhealing wounds and scheduled for below-knee amputation on the right who has experienced intermittent confusion during his hospitalization. Possible etiologies for the patient's symptoms include a multifactorial encephalopathy contributed to by underlying metabolic process. I cannot completely exclude an intracranial process such as stroke, increased intracranial pressure, or mass, contributed to the patient's symptoms. In addition, the patient may have medication side effects contributing to overall encephalopathy. The patient may have a component of sleep-wake cycle disturbance with sleep deprivation contributing to encephalopathy. -I have reviewed the MRI scan of the brain which does not reveal evidence of an acute intracranial process which may be contributing to the patient's encephalopathy -I recommend monitoring the patient's sleep-wake cycle with minimal interruptions during sleep and consideration of medications to help normalize the patient's sleep-wake cycle on the hospital. -I discussed the case with the hospitalist Dr. Ballesteros 1. Post-operative infection (T81.40XA: Infection following a procedure, unspecified, initial encounter) 2. Critical limb ischemia of right lower extremity (I70.221: Atherosclerosis of [place] arteries of extremities with rest pain, right leg) 3. Peripheral vascular disease (I73.9: Peripheral vascular disease, unspecified) 4. Acute metabolic encephalopathy (G93.41: Metabolic encephalopathy) 5. Anemia of chronic disease (D63.8: Anemia in other chronic diseases classified elsewhere) 6. Diabetes (E11.9: Type 2 diabetes mellitus without complications) 7. Chronic GERD (K21.9: Gastro-esophageal reflux disease without esophagitis) 8. No contraindication to deep vein thrombosis (DVT) prophylaxis (Z78.9: Other specified health status) Extracted from: Title:Progress Note * Author:Chong Coe M.D Date:03/01/23 Impression and Plan Diagnosis: left groin wound fem pop infection partially treated already with 3 weeks of IV dapto/cefepime. Orders Switch antibiotics based on 's concern of patient's mental status being from the antibiotics vascular has chosen for him that were chosen for him empirically. He is now on ertapenem. I do not personally think his mentation is much better. Ongoing ischemia is an issue and I read that he is planning amputation of his right foot in 2 days. My standpoint to finish out ertapenem course given left groin postoperative bypass infection. Again no culture results to drive this abx choice according to the as cultures apparently were done in [place]. Extracted from: Title:APSO Note Author:Shayy BALLESTEROS MD Date: 1. Post-operative infection (T81.40XA: Infection following a procedure, unspecified, initial encounter) - left groin infection, d/w Dr. Hurd of vascular, who recommended continue wound vac to be changed every 3 days with black foam, 125 mmHg - reviewed and agree with ID recs who recommended invanz IV daily x 21 days, picc line in place Ordered: Sbsq Hospital Care/Day High 50 Minutes [id number] 2. Critical limb ischemia of right lower extremity (I70.221: Atherosclerosis of [place] arteries of extremities with rest pain, right leg) - d/w vascular surgery, plan for right AKA on 03/03 - continue PO ASA, plavix, pletal 3. Peripheral vascular disease (I73.9: Peripheral vascular disease, unspecified) - as above 4. Acute metabolic encephalopathy (G93.41: Metabolic encephalopathy) - altered mental status may be secondary to acute metabolic encephalopathy secondary to above, could be secondary to altered sleep wake cycle, started on PO seroquel bid 2 days ago, will continue - ordered MRI brain, MRA head and neck - d/w neurology, agree with above - mental status appears improved today 5. Anemia of chronic disease (D63.8: Anemia in other chronic diseases classified elsewhere) - will check iron studies - transfuse 2 unit prbc 6. Diabetes (E11.9: Type 2 diabetes mellitus without complications) - stable, continue PO metformin and SSI ACHS subcutaneous 7. Chronic GERD (K21.9: Gastro-esophageal reflux disease without esophagitis) - stable, continue PO pepcid 8. No contraindication to deep vein thrombosis (DVT) prophylaxis (Z78.9: Other specified health status) - ordered SCDs, continue lovenox daily subcutaneous Orders: lorazepam, 1 mg = 0.5 mL, Injection, IV Push, Once, Stop date 02/28/23 12:00:00 EDT, Routine, Start date 02/28/23 12:00:00 EDT, 02/28/23 11:42:00 EDT Sodium Chloride 0.9% intravenous solution 250 mL, 250 mL, IV, 20 mL/hr, Other (see comment), Routine, Start date 03/01/23 8:03:00 EDT, 12.5 hour(s), Total volume (mL): 250, 57.1 kg, 1.63, m2 Sodium Chloride 0.9% intravenous solution 500 mL, 500 mL, IV, 20 mL/hr, Other (see comment), Routine, Start date 03/01/23 8:03:00 EDT, 25 hour(s), Total volume (mL): 500, 57.1 kg, 1.63, m2 ABO/Rh ABO/Rh History Check Add on Test Antibody Screen Automated Diff Basic Metabolic Panel Blood Bank ID# CBC w/ Auto Diff CBC w/ Auto Diff Comprehensive Metabolic Panel Consult to Neurology eGFR Extra Green Li Tube Extra Lav Tube Morphology MRA Head w/o Contrast MRA Neck w/o Contrast MRI Brain w/o Contrast Red Cell Order TSH With T4fr Reflex Vitamin B12 Level Wound Vac Extracted from: Title:Consult Note- Neurology Author:Ольга Walden RN Date:03/01/23 The patient is a 77-year-old male with a history of peripheral vascular disease requiring surgery and secondary nonhealing wounds over several weeks admitted to the hospital with treatment of the nonhealing wounds and scheduled for below-knee amputation on the right who has experienced intermittent confusion during his hospitalization. Possible etiologies for the patient's symptoms include a multifactorial encephalopathy contributed to by underlying metabolic process. I cannot completely exclude an intracranial process such as stroke, increased intracranial pressure, or mass, contributed to the patient's symptoms. In addition, the patient may have medication side effects contributing to overall encephalopathy. The patient may have a component of sleep-wake cycle disturbance with sleep deprivation contributing to encephalopathy. -I have reviewed the CT scan of the brain personally -I recommend obtaining an MRI scan of the brain to assess for an acute intracranial process which may be contributing to the patient's encephalopathy -I recommend monitoring the patient's sleep-wake cycle with minimal interruptions during sleep and consideration of medications to help normalize the patient's sleep-wake cycle on the hospital. -I will continue to follow the patient clinically with medical management of the patient's medical conditions and make further recommendations based upon the patient's clinical course and the above evaluation. -I discussed the case with the hospitalist Dr. Ballesteros 1. Post-operative infection (T81.40XA: Infection following a procedure, unspecified, initial encounter) 2. Critical limb ischemia of right lower extremity (I70.221: Atherosclerosis of [place] arteries of extremities with rest pain, right leg) 3. Peripheral vascular disease (I73.9: Peripheral vascular disease, unspecified) 4. Acute metabolic encephalopathy (G93.41: Metabolic encephalopathy) 5. Diabetes (E11.9: Type 2 diabetes mellitus without complications) 6. Chronic GERD (K21.9: Gastro-esophageal reflux disease without esophagitis) 7. No contraindication to deep vein thrombosis (DVT) prophylaxis (Z78.9: Other specified health status) Extracted from: Title:APSO Note Author:Shayy BALLESTEROS MD Date: 1. Post-operative infection (T81.40XA: Infection following a procedure, unspecified, initial encounter) - left groin infection, d/w Dr. Hurd of vascular, who recommended continue wound vac to be changed every 3 days with black foam, 125 mmHg - reviewed and agree with ID recs who recommended invanz IV daily x 21 days, picc line in place 2. Critical limb ischemia of right lower extremity (I70.221: Atherosclerosis of [place] arteries of extremities with rest pain, right leg) - d/w vascular surgery, plan for right AKA on 03/03 - continue PO ASA, plavix, pletal 3. Peripheral vascular disease (I73.9: Peripheral vascular disease, unspecified) - as above 4. Acute metabolic encephalopathy (G93.41: Metabolic encephalopathy) - altered mental status may be secondary to acute metabolic encephalopathy secondary to above, could be secondary to altered sleep wake cycle, started on PO seroquel bid 2 days ago, will continue - ordered MRI brain, MRA head and neck - consult neurology 5. Diabetes (E11.9: Type 2 diabetes mellitus without complications) - stable, continue PO metformin and SSI ACHS subcutaneous 6. Chronic GERD (K21.9: Gastro-esophageal reflux disease without esophagitis) - stable, continue PO pepcid 7. No contraindication to deep vein thrombosis (DVT) prophylaxis (Z78.9: Other specified health status) - ordered SCDs, continue lovenox daily subcutaneous d/w patient and at bedside Orders: lorazepam, 1 mg = 0.5 mL, Injection, IV Push, Once, Stop date 02/28/23 12:00:00 EDT, Routine, Start date 02/28/23 12:00:00 EDT, 02/28/23 11:42:00 EDT Consult to Neurology MRA Head w/o Contrast MRA Neck w/o Contrast MRI Brain w/o Contrast Wound Vac Addendum by FAVIAN WISE, Shayy savage March 06, 2023 09:19:07 EDT severe malnutrition, present on admission Extracted from: Title:Discharge Note Author:NEVAEH WISE, Ramos Ld e:02/25/23 fair Discharge To, Anticipated II - Home with home health Discharged to - Home with family half-way Discharge Diet(s): Calorie Controlled- 1800 Calorie Diet (02/25/23 11:04:00) Prescriptions cilostazol 100 mg Tab, 100 mg= 1 tab(s), Oral, BID ertapenem 1 g Inj, 1000 mg= 1 EA, IV Piggyback, Daily oxycodone 10 mg oral tablet, 10 mg= 1 tab(s), Oral, q6hr Home acetaminophen 650 mg oral tablet, extended release, 1300 mg= 2 tab(s), Oral, Bedtime aspirin 81 mg Oral EC Tab, 81 mg= 1 tab(s), Oral, Daily biotin 300 mcg oral tablet, 300 mcg= 1 tab(s), Oral, BID cholecalciferol 1000 intl units (25 mcg) oral tablet, 50 mcg= 2 tab(s), Oral, Daily clopidogrel 75 mg Tab, 75 mg= 1 tab(s), Oral, Daily cyanocobalamin 1000 mcg/mL Inj, 1000 mcg= 1 mL, SubCutaneous, q2wk digoxin 125 mcg (0.125 mg) Tab, 125 mcg= 1 tab(s), Oral, Daily famotidine 40 mg Tab, 40 mg= 1 tab(s), Oral, Daily magnesium oxide 400 mg Tab, 400 mg= 1 tab(s), Oral, Daily metformin 500 mg Tab, 500 mg= 1 tab(s), Oral, Supper nystatin 100,000 units/mL Oral Susp, [id number] unit(s)= 15 mL, Oral, QIDACHS Verquvo 10 mg oral tablet, 10 mg= 1 tab(s), Oral, Daily With When Contact Information LUCILLE HORTA In 3 days 02/28/2023 EDT [address] [facility] [place] [address] Business (1) Additional Instructions: The office is closed on Fridays. Please contact your PCP on Tuesday, February 28 for an appointment. Thank you! Diabetes Mellitus and Nutrition, Adult Diabetes Mellitus and Foot Care Wound Infection, [id number] Discharge time >30 min Extracted from: Title:Infection Admission H&P * Author:Chong Coe M.D Date:02/25/23 Impression and Plan Diagnosis left groin wound fem pop infection partially treated already with 3 weeks of IV dapto/cefepime . Orders Patient's initial debridement on his left groin wound was done at [facility]. These records are not available for me to review. Patient's states that Dr. Hurd was the one who chose daptomycin and cefepime. She specifically did share with me that the culture from the left groin wound did not grow any specific bacteria. With this information and the fact that this is all I have to go on is difficult to make any true assessment of what antibiotic would be best to switch patient to. With lack of positive culture results and concern of confusion with antibiotics I think that cefepime would be more likely to cause the confusion than the daptomycin. His CKs have been fine. The left groin wound the tells me is improving. I have no reference to go on. The wound itself does not appear to be in poor form. Patient's labs do not suggest he has active infection. Discussed with the hospitalist. Would simply switch patient to ertapenem therapy to switch him from the cefepime and daptomycin to a different antibiotic and finish another 3 weeks. . Extracted from: Title:Admission H & P Author:NEVAEH WISE, Ramos Burris te:02/23/23 1. Acute encephalopathy (G93 .40: Encephalopathy, unspecified) Acute metabolic encephalopathy possibly to combination between any worsening wound infection and using marijuana Inpatient admission Wound culture Blood cultures CT brain showed no acute intracranial process Urine tox showed marijuana CBC with differential daily Infectious disease consult Vascular surgery consult Cefepime 2 g every 8 hours Daptomycin IV daily 2. Wound infection after surgery (T81.49XA: Infection following a procedure, other surgical site, initial encounter) As above 3. Marihuana abuse (F12.10: Cannabis abuse, uncomplicated) Advised to quit 4. Diabetes mellitus, type II (E11.9: Type 2 diabetes mellitus without complications) Accu-Chek ACHS Insulin sliding scale Hold metformin 5. PAD (peripheral artery disease) (I73.9: Peripheral vascular disease, unspecified) Aspirin and Plavix Resume cilostazol 6. No contraindication to deep vein thrombosis (DVT) prophylaxis (Z78.9: Other specified health status) Lovenox daily Orders: acetaminophen, 650 mg = 2 tab(s), Tab, Oral, q6hr PRN Pain, Routine, Start date 02/23/23 15:26:00 EDT, 02/23/23 15:26:00 EDT Al hydroxide/Mg hydroxide/simethicone, 30 mL, Susp-Oral, Oral, q6hr PRN Indigestion, STAT, Start date 02/23/23 15:26:00 EDT enoxaparin, 40 mg = 0.4 mL, Injection, SubCutaneous, Daily, Routine, Start date 02/24/23 9:00:00 EDT, 02/23/23 15:26:00 EDT glucose, 50 mL, Soln-IV, IV Push, Once PRN Blood glucose, STAT, Start date 02/23/23 15:27:00 EDT insulin lispro, 0-10 Units, Injection-Insulin, SubCutaneous, QIDACHS, Routine, Start date 02/23/23 16:30:00 EDT magnesium hydroxide, 30 mL, Susp-Oral, Oral, q6hr PRN Constipation, STAT, Start date 02/23/23 15:26:00 EDT ondansetron, 4 mg = 2 mL, Injection, IV Push, q6hr PRN Nausea, Routine, Start date 02/23/23 15:26:00 EDT, 02/23/23 15:26:00 EDT senna, 17.2 mg = 2 tab(s), Tab, Oral, BID PRN Other (see comment), Routine, Start date 02/23/23 15:26:00 EDT, 02/23/23 15:26:00 EDT Cardiac Diet Consult to Infectious Disease Physician Consult to Vascular Surgery Elevate Head of Bed Hypoglycemia Protocol Responsive Patient Hypoglycemia Protocol Unresponsive Patient Notify Provider Vital Signs Notify Provider Vital Signs Place in Status Resuscitation Status - Full Routine Capillary Glucose POC Up ad Lorena Vital Signs Weight Extracted from: Title:ED Note Author:Kwasi Paredes MD Date: 1. Lower extremity arterial insufficiency, severe, right (I73.9: Peripheral vascular disease, unspecified) 2. Anemia (D64.9: Anemia, unspecified) 3. Wound infection (T14.8XXA: Other injury of unspecified body region, initial encounter) 4. Altered mental status (R41.82: Altered mental status, unspecified) Local infection of the skin and subcutaneous tissue, unspecified (L08.9: Local infection of the skin and subcutaneous tissue, unspecified) Orders: Automated Diff Basic Metabolic Panel Blood Culture Charcoal Blood Culture Charcoal CBC w/ Auto Diff Continuous Pulse Oximetry CT Head or Brain w/o Contrast Drug Screen Urine ED Cardiac Monitoring ED Physician consult Hospitalist for continued care eGFR Ethanol Level Extra SST Tube Hepatic Function Panel PT & PTT Saline Lock Insert Troponin 0 Hr. UA With Cult Reflex Urine Culture XR Chest Single View Future Appointments Appointment Date:03/17/2023 01:00:00 PM Scheduled Provider:Erwin Hurd MD [facility] Appointment Type:Vascular Follow Up (FT) Diagnostic Tests Pending * Urine Culture 03/10/23 Future Scheduled Tests Radiology* US Aorta, IVC, Iliac Duplex 04/08/23 * US PVR Lower EXT Complete Bilat 04/08/23 * CV Cardiovascular 02/15/23 [facility]06[facility]:Result Comment: Electronically Signed By: Serena FINNEGAN\.br\Date and Time Signed: 03/10/23 10:50 EDT\.br\Electronically Co-Signed By: West Shukla MD\.br\Date and Time Co-Signed: 03/10/23 11:19 EDT 02-25-2023 [facility]Children[facility] For RehabilitationComment on above:Result Comment: Electronically Signed By: Ramos HERRING MD\.br\Date and Time Signed: 02/25/23 11:[id number] Hospital Discharge instructions Patient Education 02/25/2023 11:06:33 Diabetes Mellitus and Nutrition, Adult Diabetes Mellitus and Nutrition, Adult When you have diabetes, or diabetes mellitus, it is very important to have healthy eating habits because your blood sugar (glucose) levels are greatly affected by what you eat and drink. Eating healthy foods in the right amounts, at about the same times every day, can help you: Manage your blood glucose. Lower your risk of heart disease. Improve your blood pressure. Reach or maintain a healthy weight. What can affect my meal plan? Every person with diabetes is different, and each person has different needs for a meal plan. Your health care provider may recommend that you work with a dietitian to make a meal plan that is best for you. Your meal plan may vary depending on factors such as: The calories you need. The medicines you take. Your weight. Your blood glucose, blood pressure, and cholesterol levels. Your activity level. Other health conditions you have, such as heart or kidney disease. How do carbohydrates affect me? Carbohydrates, also called carbs, affect your blood glucose level more than any other type of food.Eating carbs raises the amount of glucose in your blood. It is important to know how many carbs you can safely have in each meal. This is different for every person. Your dietitian can help you calculate how many carbs you should have at each meal and for each snack. How does alcohol affect me? Alcohol can cause a decrease in blood glucose (hypoglycemia), especially if you use insulin or takecertain diabetes medicines by mouth. Hypoglycemia can be a life-threatening condition. Symptoms of hypoglycemia, such as sleepiness, dizziness, and confusion, are similar to symptoms of having too much alcohol. Do not drink alcohol if: ?Your health care provider tells you not to drink. ?You are , may be , or are planning to become . If you drink alcohol: ?Limit how much you have to: ?0 1 drink a day for women. ?0 2 drinks a day for men. ?Know how much alcohol is in your drink. In the [place] one drink equals one 12 oz bottle of beer (355 mL), one 5 oz glass of wine (148 mL), or one 1 oz glass of hard liquor (44 mL). ?Keep yourself hydrated with water, diet soda, or unsweetened iced tea. Keep in mind that regular soda, juice, and other mixers may contain a lot of sugar and must be counted as carbs. What are tips for following this plan? Reading food labels Start by checking the serving size on the Nutrition Facts label of packaged foods and drinks. The number of calories and the amount of carbs, fats, and other nutrients listed on the label are based on one serving of the item. Many items contain more than one serving per package. Check the total grams (g) of carbs in one serving. Check the number of grams of saturated fats and trans fats in one serving. Choose foods that have alow amount or none of these fats. Check the number of milligrams (mg) of salt (sodium) in one serving. Most people should limit totalsodium intake to less than 2,300 mg per day. Always check the nutrition information of foods labeled as low-fat or nonfat. These foods may be higher in added sugar or refined carbs and should be avoided. Talk to your dietitian to identify your daily goals for nutrients listed on the label. Shopping Avoid buying canned, pre-made, or processed foods. These foods tend to be high in fat, sodium, and added sugar. Shop around the outside edge of the grocery store. This is where you will most often find fresh fruits and vegetables, bulk grains, fresh meats, and fresh dairy products. Cooking Use low-heat cooking methods, such as baking, instead of high-heat cooking methods, such as deep frying. Cook using healthy oils, such as olive, canola, or sunflower oil. Avoid cooking with butter, cream, or high-fat meats. Meal planning Eat meals and snacks regularly, preferably at the same times every day. Avoid going long periods oftime without eating. Eat foods that are high in fiber, such as fresh fruits, vegetables, beans, and whole grains. Eat 4 6 oz (112 168 g) of lean protein each day, such as lean meat, chicken, fish, eggs, or tofu. One ounce (oz) (28 g) of lean protein is equal to: ?1 oz (28 g) of meat, chicken, or fish. ?1 egg. ? cup (62 g) of tofu. Eat some foods each day that contain healthy fats, such as avocado, nuts, seeds, and fish. What foods should I eat? Fruits Berries. Apples. Oranges. Peaches. Apricots. Plums. Grapes. Mangoes. Papayas. Pomegranates. Kiwi. Cherries. Vegetables Leafy greens, including lettuce, spinach, kale, chard, kia greens, mustard greens, and cabbage.Beets. Cauliflower. Broccoli. Carrots. Green beans. Tomatoes. Peppers. Onions. Cucumbers. [place] sprouts. Grains Whole grains, such as whole-wheat or whole-grain bread, crackers, tortillas, cereal, and pasta. Unsweetened oatmeal. Quinoa. Brown or wild rice. Meats and other proteins Seafood. Poultry without skin. Lean cuts of poultry and beef. Tofu. Nuts. Seeds. Dairy Low-fat or fat-free dairy products such as milk, yogurt, and cheese. The items listed above may not be a complete list of foods and beverages you can eat and drink. Contact a dietitian for more information. What foods should I avoid? Fruits Fruits canned with syrup. Vegetables Canned vegetables. Frozen vegetables with butter or cream sauce. Grains Refined white flour and flour products such as bread, pasta, snack foods, and cereals. Avoid all processed foods. Meats and other proteins Fatty cuts of meat. Poultry with skin. Breaded or fried meats. Processed meat. Avoid saturated fats. Dairy Full-fat yogurt, cheese, or milk. Beverages Sweetened drinks, such as soda or iced tea. The items listed above may not be a complete list of foods and beverages you should avoid. Contact a dietitian for more information. Questions to ask a health care provider Do I need to meet with a certified diabetes care and inclusion special education teacher? Do I need to meet with a dietitian? What number can I call if I have questions? When are the best times to check my blood glucose? Where to find more information: [place] Diabetes Association: diabetes.org Academy of Nutrition and Dietetics: eatright.org National [place] of Diabetes and Digestive and Kidney Diseases: niddk.nih.gov Association of Diabetes Care & Education Specialists: diabeteseducator.org Summary It is important to have healthy eating habits because your blood sugar (glucose) levels are greatlyaffected by what you eat and drink. It is important to use alcohol carefully. A healthy meal plan will help you manage your blood glucose and lower your risk of heart disease. Your health care provider may recommend that you work with a dietitian to make a meal plan that is best for you. This information is not intended to replace advice given to you by your health care provider. Make sure you discuss any questions you have with your health care provider. Document Revised: 04/29/2021 Document Reviewed: 04/29/2021 [employer] Patient Education 2022 [employer]. 02/25/2023 11:06:31 Diabetes Mellitus and Foot Care Diabetes Mellitus and Foot Care Foot care is an important part of your health, especially when you have diabetes. Diabetes may cause you to have problems because of poor blood flow (circulation) to your feet and legs, which can cause your skin to: Become thinner and stock drier tender. Break more easily. Heal more slowly. Peel and crack. You may also have nerve damage (neuropathy) in your legs and feet, causing decreased feeling in them. This means that you may not notice minor injuries to your feet that could lead to more serious problems. Noticing and addressing any potential problems early is the best way to prevent future foot problems. How to care for your feet Foot hygiene Wash your feet daily with warm water and mild soap. Do not use hot water. Then, pat your feet and the areas between your toes until they are completely dry. Do not soak your feet as this can dry yourskin. Trim your toenails straight across. Do not dig under them or around the cuticle. File the edges of your nails with an emery board or nail file. Apply a moisturizing lotion or petroleum jelly to the skin on your feet and to dry, brittle toenails. Use lotion that does not contain alcohol and is unscented. Do not apply lotion between your toes. Shoes and socks Wear clean socks or stockings every day. Make sure they are not too tight. Do not wear knee-high stockings since they may decrease blood flow to your legs. Wear shoes that fit properly and have enough cushioning. Always look in your shoes before you put them on to be sure there are no objects inside. To break in new shoes, wear them for just a few hours a day. This prevents injuries on your feet. Wounds, scrapes, corns, and calluses Check your feet daily for blisters, cuts, bruises, sores, and redness. If you cannot see the bottomof your feet, use a mirror or ask someone for help. Do not cut corns or calluses or try to remove them with medicine. If you find a minor scrape, cut, or break in the skin on your feet, keep it and the skin around it clean and dry. You may clean these areas with mild soap and water. Do not clean the area with peroxide, alcohol, or iodine. If you have a wound, scrape, corn, or callus on your foot, look at it several times a day to make sure it is healing and not infected. Check for: ?Redness, swelling, or pain. ?Fluid or blood. ?Warmth. ?Pus or a bad smell. General tips Do not cross your legs. This may decrease blood flow to your feet. Do not use heating pads or hot water bottles on your feet. They may burn your skin. If you have lost feeling in your feet or legs, you may not know this is happening until it is too late. Protect your feet from hot and cold by wearing shoes, such as at the beach or on hot pavement. Schedule a complete foot exam at least once a year (annually) or more often if you have foot problems. Report any cuts, sores, or bruises to your health care provider immediately. Where to find more information [place] Diabetes Association: www.diabetes.org Association of Diabetes Care & Education Specialists: www.diabeteseducator.org Contact a health care provider if: You have a medical condition that increases your risk of infection and you have any cuts, sores, orbruises on your feet. You have an injury that is not healing. You have redness on your legs or feet. You feel burning or tingling in your legs or feet. You have pain or cramps in your legs and feet. Your legs or feet are numb. Your feet always feel cold. You have pain around any toenails. Get help right away if: You have a wound, scrape, corn, or callus on your foot and: ?You have pain, swelling, or redness that gets worse. ?You have fluid or blood coming from the wound, scrape, corn, or callus. ?Your wound, scrape, corn, or callus feels warm to the touch. ?You have pus or a bad smell coming from the wound, scrape, corn, or callus. ?You have a fever. ?You have a red line going up your leg. Summary Check your feet every day for blisters, cuts, bruises, sores, and redness. Apply a moisturizing lotion or petroleum jelly to the skin on your feet and to dry, brittle toenails. Wear shoes that fit properly and have enough cushioning. If you have foot problems, report any cuts, sores, or bruises to your health care provider immediately. Schedule a complete foot exam at least once a year (annually) or more often if you have foot problems. This information is not intended to replace advice given to you by your health care provider. Make sure you discuss any questions you have with your health care provider. Document Revised: 04/16/2021 Document Reviewed: 04/16/2021 [employer] Patient Education 2022 [employer] 02/25/2023 11:06:09 Wound Infection, Boil-ge-Tmcn Wound Infection A wound infection happens when germs start to grow in a wound. Germs that cause wound infections are most often bacteria. Other types of infections can occur as well. An infection can cause the woundto break open. Wound infections need treatment. If a wound infection is not treated, problems can happen. What are the causes? Most often caused by germs (bacteria) that grow in a wound. Other germs, such as yeast and funguses, can also cause wound infections. What increases the risk? Having a weak body defense system (immune system). Having diabetes. Taking certain medicines (steroids) for a long time. Smoking. Being an older person. Being overweight. Taking certain medicines for cancer treatment. What are the signs or symptoms? Having more redness, swelling, or pain at the wound site. Having more blood or fluid at the wound site. A bad smell coming from a wound or bandage (dressing). Having a fever. Feeling very tired. Having warmth at or around the wound. Having pus at the wound site. How is this treated? This condition is most often treated with an antibiotic medicine. ?The infection should improve 24 48 hours after you start antibiotics. ?After 24 48 hours, redness around the wound should stop spreading. The wound should also be less painful. Follow these instructions at home: Medicines Take or apply xfvh-egp-byccfaf and prescription medicines only as told by your doctor. If you were prescribed an antibiotic medicine, take or apply it as told by your doctor. Do not stopusing the antibiotic even if you start to feel better. Wound care Clean the wound each day, or as told by your doctor. ?Wash the wound with mild soap and water. ?Rinse the wound with water to remove all soap. ?Pat the wound dry with a clean towel. Do not rub it. Follow instructions from your doctor about how to take care of your wound. Make sure you: ?Wash your hands with soap and water before and after you change your bandage. If you cannot use soap and water, use hand director radiation oncology. ?Change your bandage as told by your doctor. ?Leave stitches (sutures), skin glue, or skin tape (adhesive) strips in place if your wound has been closed. They may need to stay in place for 2 weeks or longer. If tape strips get loose and curl up, you may trim the loose edges. Do not remove tape strips completely unless your doctor says it is okay. Some wounds are left open to heal on their own. Check your wound every day for signs of infection. Watch for: ?More redness, swelling, or pain. ?More fluid or blood. ?Warmth. ?Pus or a bad smell. General instructions Keep the bandage dry until your doctor says it can be removed. Do not take baths, swim, or use a hot tub until your doctor approves. Ask your doctor if you may take showers. You may only be allowed to take sponge baths. Raise (elevate) the injured area above the level of your heart while you are sitting or lying down. Do not scratch or pick at the wound. Keep all follow-up visits as told by your doctor. This is important. Contact a doctor if: Medicine does not help your pain. You have more redness, swelling, or pain around your wound. You have more fluid or blood coming from your wound. Your wound feels warm to the touch. You have pus coming from your wound. You notice a bad smell coming from your wound or your bandage. Your wound that was closed breaks open. Get help right away if: You have a red streak going away from your wound. You have a fever. Summary A wound infection happens when germs start to grow in a wound. This condition is usually treated with an antibiotic medicine. Follow instructions from your doctor about how to take care of your wound. Contact a doctor if your wound infection does not start to get better in 24 48 hours, or your symptoms get worse. Keep all follow-up visits as told by your doctor. This is important. This information is not intended to replace advice given to you by your health care provider. Make sure you discuss any questions you have with your health care provider. Document Revised: 07/22/2022 Document Reviewed: 07/22/2022 [employer] Patient Education 2022 [employer]. Follow Up Care 02/23/2023 10:43:07 With:Chong Coe Address: [address] [place] [address]- Business (1) When:7 to 10 days With:Erwin Hurd Address: [address] [place] [address]- Business (1) When:5 to 7 days With:Dami WISE, TAL Guidry Address: [address] [place] [address]- When:2 to 4 weeks With:LUCILLE HOTRA Address: [facility] [place] [address] Business (1) When:02/28/2023 Comments:The office is closed on Fridays. Please contact your PCP on February 28 for an appointment. Thank you! [facility]05-17-2023 NoteFisher Medstar Good [facility]aritan HospitalComment on above:Result Comment: Electronically Signed By: NEVAEH WISE, Ramos\.br\Date and Time Signed: 02/23/23 16:[id number] Evaluation + Plan noteExtracted from: Title:ED Note Author:Nancy Brennon Date:02/15 Anemia (D64.9: Anemia, unspe cified) Decubitus ulcer of back (L89.109: Pressure ulcer of unspecified part of back, unspecified stage) Encounter for removal of peripherally inserted central catheter (PICC) (Z45.2: Encounter for adjustment and management of vascular access device) Epistaxis (R04.0: Epistaxis) Vascular occlusion (I99.8: Other disorder of circulatory system) Orders: diphenhydrAMINE, 25 mg = 0.5 mL, Injection, IV, Once, Stop date 02/15/23 12:39:00 EDT, STAT, Start date 02/15/23 12:39:00 EDT, 02/15/23 12:39:00 EDT phenylephrine nasal, 2 spray(s), [place], Nasal, Once, Stop date 02/15/23 12:42:00 EDT, STAT, Start date 02/15/23 12:42:00 EDT predniSONE, 60 mg = 3 tab(s), Tab, Oral, Once, Stop date 02/15/23 12:39:00 EDT, STAT, Start date 02/15/23 12:39:00 EDT, 02/15/23 12:39:00 EDT tranexamic acid, 500 mg = 5 mL, Injection, Topical, Once, Stop date 02/15/23 12:42:00 EDT, STAT, Start date 02/15/23 12:42:00 EDT, 02/15/23 12:42:00 EDT Automated Diff CBC w/ Auto Diff Change End Caps CHG Bath Communication Order Physician to Nursing Communication Order Physician to Nursing Communication Order Physician to Nursing Communication Order Physician to Nursing Communication Order Physician to Nursing Comprehensive Metabolic Panel Creatine Kinase CTA Abd Aorto-bilat/ iliofemoral runoff CV Mid Line Insertion Dressing Care/Change eGFR Extra SST Tube PT & PTT Future Appointments Appointment Date:02/17/2023 10:30:00 AM Scheduled Provider:Erwin Hurd MD Location[facility] Appointment Type:Vascular Follow Up (FT) Appointment Date:02/24/2023 03:00:00 PM Scheduled Provider:Erwin Hurd MD Location:.[facility] Appointment Type:Vascular Follow Up (FT) Future Scheduled Tests Radiology* US Aorta, IVC, Iliac Duplex 04/08/23 * US PVR Lower EXT Complete Bilat 04/08/23 * CV Cardiovascular 02/15/23 [facility]05-09-2023 Evaluation + Plan note Future Scheduled Tests Radiology* CV Cardiovascular 02/15/23 [facility]05-09-2023 Hospital Discharge instructions Follow Up Care 02/15/2023 11:01:41 With:Vinita Delgadillo Address:Unknown When:02/18/2023 16:48:28 With:Erwin Hurd Address: [address] [place] [address]- Business (1) When:02/18/2023 16:48:12 With:LUCILLE HORTA Address: [facility] [place] [address] Business (1) When:Within 3 Day(s) [facility]04[facility]27[facility] 02-02-2023 [facility] 02-02-2023 [facility] 02-02-2023 [facility]04-25-2023 NoteOccupational Therapy Pt is unable to be seen for therapy at this time secondary to Refused. Will continue to check back as appropriate. Time [facility]: 1500[facility] Note Occupational Therapy Pt is unable to be seen for therapy at this time secondary to Refused due to N&V, nsg aware. Will continue to check back as appropriate. Time attempted: 1012Un[facility]04-25-2023 NotePhysical Therapy RN agreeable to pt participation as long as pt is agreeable. Pt is unable to be seen for therapy at this time secondary to Refused, RN informed.Will continue to check back as appropriate. Time attempted: 957Un[facility]04-25-2023 [facility] 01-31-2023 [facility]04-24-2023 [facility]04-[facility]-2023 [facility] 01-31-2023 [facility]04-[facility]-2023 NotePhysical Therapy Hbg 7.2 this AM - currently pending 2 units RBC's. Will defer evaluation this morning and attempt back in PM as able. Júnior Espinoza PT, DPTUnMercy Health [facility]04-24-2023 [facility]04[facility]-2023 [facility] 01-31-2023 [facility]04-23-2023 [facility]04-22-2023 NoteINSERTED WITHOUT COMPLICATION USING STERILE TECHNIQUE; DRAINING CLEAR YELLOW URINE; TO BE MONITORED AND MAINTAINED BY ANESTHESIA FOR DURATION OF THE CASE [facility]04-22-2023 [facility]04-[facility]-2023 [facility]04-[facility]23 Note PROCEDURE: XR HIP RT 2 3V W PELVIS COMPARISON: None. HISTORY: Pain in right hip joint FINDINGS: BONES:No acute fracture or dislocation. Moderate degenerative spondylosis of the spine. Moderate bilateral hip osteoarthropathy with joint space narrowing SOFT TISSUES:Negative. No visible soft tissue swelling. EFFUSION:None visible. OTHER: Vascular calcifications with vascular stents IMPRESSION: Moderate degenerative changes Electronically authenticated by: MARIO CULLEN Date: 2023-01-29 14:17[facility]03-07-2023 [facility]03-02-2023 Note [id number]:127[facility] 12-03-2022 NoteUnMer[facility]02-24-2023 NoteUnMer[facility]02-24-2023 NoteUn[facility] 12-03-2022 [facility]02-[facility]-2023 NoteR groin wound measurements on 12/02/22 as follows: 5x3x3 cm Patient to be discharged today with NPWT to right groin wound.[facility]02-24-2023 [facility] 12-02-2022 [facility]02-23-2023 [facility]02-23-2023 [facility] 12-02-2022 [facility]02-22-2023 [facility]02-22-2023 [facility] 12-01-2022 [facility]02-21-2023 [facility]02-21-2023 [facility] 11-29-2022 [facility]02-20-2023 [facility]02-20-2023 [facility] 11-16-2022 NotePt is being Dc'd. PT/OT recommends home independent. Aurelio Guzman RN, she will teach pt's dressing changes. No other needs identified.[facility]02-07-2023 [facility] 11-16-2022 [facility]02-07-2023 [facility]02-06-2023 [facility] 11-15-2022 [facility]02-06-2023 [facility]02-05-2023 [facility] 11-14-2022 [facility]02-05-2023 [facility]02-04-2023 [facility] 11-13-2022 [facility]-31-2023 [facility]01-[facility]-2023 [facility] 11-09-2022 [facility]01-30-2023 [facility]01-30-2023 [facility] 11-08-2022 [facility]01-30-2023 [facility]01-30-2023 [facility] 11-07-2022 [facility]01-29-2023 [facility]01-29-2023 [facility] 11-06-2022 [facility]01-27-2023 [facility]01-27-2023 [facility] 11-05-2022 [facility]01-26-2023 NoteSW attempted to see patient 2 times this afternoon. Each time medical providers were in the room and patient was not available. SW to attempt assessment at a later time.[facility]01-26-2023 Note [facility]01-26-2023 NoteUnMer[facility]01-25-2023 [facility]01-25-2023 Note [facility]12-29-2022 NoteMary [facility] HospitalEvaluation + Plan note Future Appointments Appointment Date:12/02/2022 08:45:00 AM Scheduled Provider:Brennon Alvarado MD Location[facility] Appointment Type: New Patient 30 (FT) [facility] Future Appointments Appointment Date:12/23/2022 02:30:00 PM Scheduled Provider:Erwin Hurd MD Location:.[facility] Appointment Type:Vascular Follow Up (FT) [facility] Future Scheduled Tests Radiology* US Aorta, IVC, Iliac Duplex 04/08/23 * US PVR Lower EXT Complete Bilat 04/08/23 [facility] + Plan note Future Appointments Appointment Date:02/17/2023 10:30:00 AM Scheduled Provider:Erwin Hurd MD Location:.[facility] Appointment Type:Vascular Follow Up (FT) Future Scheduled Tests Radiology* US Aorta, IVC, Iliac Duplex 04/08/23 * US PVR Lower EXT Complete Bilat 04/08/23 * CV Cardiovascular 02/15/23 [facility] Future Appointments Appointment Date:03/17/2023 01:00:00 PM Scheduled Provider:Erwin Hurd MD Location:.[facility] Appointment Type:Vascular Follow Up (FT) Future Scheduled Tests Radiology* US Aorta, IVC, Iliac Duplex 04/08/23 * US PVR Lower EXT Complete Bilat 04/08/23 * CV Cardiovascular 02/15/23 [facility] Future Appointments Appointment Date:04/13/2023 09:00:00 AM Scheduled Provider: [facility] Type:US Duplex Procedures (FT) Diagnostic Tests Pending * Path. Review 04/04/23 Future Scheduled Tests Radiology* US Aorta, IVC, Iliac Duplex 04/13/23 * US PVR Lower EXT Complete Bilat 04/13/23 * CV Cardiovascular 02/15/23 [facility] Future Appointments Appointment Date:04/11/2023 12:30:00 PM Scheduled Provider: Location:[facility] Services Appointment Type:Surgery FT Future Scheduled Tests Radiology* CV Cardiovascular 02/15/23 [facility] HospitalEvaluation noteNo InformationNortHeritage [facility] [employer] Other History general Narrative - Reported* Type Description Date Medical History type II diabetes Medical History PAD Surgical History cholcystecomy Surgical History appendectomy Surgical History open heart surgery Surgical History femoral bypass Surgical History right leg amputation [facility] [employer] Other Hospital course Narrative No data available for this section [facility] No data available for this section [facility] HospitalProgress note No data available for this section [facility] Summary Purpose Family History No Family History Records FoundNo Family History Records FoundNo Family History Records FoundNo Family History Records FoundNo Family History Records FoundNo Family History Records Found Advance Directives No Advanced Directives Records FoundNo Advanced Directives Records FoundNo Advanced Directives Records FoundNo Advanced Directives Records FoundNo Advanced Directives Records FoundNo Advanced Directives Records Found Additional Source Comments (unrecognized sect ion and content) No Status Records FoundNo Status Records FoundNo Status Records FoundNo Status Records FoundNo Status Records FoundNo Status Records Found INFORMATION SOURCE (unrecogn ized section and content) DATE CREATED AUTHOR 04/29/2022 [facility] DATE CREATED AUTHOR AUTHOR'S ORGANIZ ATION 01/30/2023 [facility] DATE CREATED AUTHOR AUTHOR'S ORGANIZ ATION 02/10/2023 [facility] DATE CREATED AUTHOR AUTHOR'S ORGANIZ ATION 07/22/2023 [facility] DATE CREATED AUTHOR AUTHOR'S ORGANIZ ATION 09/07/2023 [facility] DATE CREATED AUTHOR AUTHOR'S ORGANIZ ATION 10/01/2023 [facility] Patient Care team informatio n (unrecognized section and content) Personnel Name: LUCILLE HORTA JR, DO Address: Address: [address] [place], [place] [id number] Personnel Name: LUCILLE HORTA JR, DO Address: Address: [address] [place] [phone] Personnel Name: LUCILLE HORTA JR, DO Address: Address: [address] [place] [phone] Personnel Name: LUCILLE HORTA JR, DO Address: Address: [address] [place], [place] [id number] Personnel Name: LUCILLE HORTA JR, DO Address: Address: [address] [place], [place] [id number] Personnel Name: LUCILLE HORTA JR, DO Address: Address: [address] [place], [place] [id number] Personnel Name: LUCILLE HORTA JR, DO Address: Address: [address] [place], [place] [id number] Personnel Name: LUCILLE HORTA JR, DO Address: Address: [address] [place], [place] [id number] Personnel Name: LUCILLE HORTA JR, DO Address: Address: [address] [place], [place] [id number] Personnel Name: RULA LUCILLE ARANDA Address: Address: [address] [place], [place] [id number] Personnel Name: LUCILLE HORTA JR, DO Address: Address: [address] [place], [place] [id number] Personnel Name: RULA LUCILLE ARANDA Address: Address: [address] [place], [place] [id number] [place] Name: Emma Panda LPN Personnel Name: LUCILLE HORTA JR, DO Address: Address: [address] [place], [place] [id number] [place] Name: Emma Panda LPN Personnel Name: LUCILLE HORTA JR, DO Address: Address: [address] [place], [place] [id number] [place] Name: Emma Panda LPN Personnel Name: LUCILLE HORTA JR, DO Address: Address: [address] [place], [place] [id number] [place] Name: Emma Panda LPN Personnel Name: LUCILLE HORTA JR, DO Address: Address: [address] [place], [place] [id number] [place] Name: Emma Panda LPN REASON FOR VISIT (unrecogniz ed section and content) REF NIRAJ THAPA ETIC EVAL.script niraj FOR RECORDS PERTAINING TO PATIENTS WHO ARE OR HAVE BEEN ENROLLED IN A CHEMICAL DEPENDENCY/SUBSTANCEABUSE PROGRAM, SOME INFORMATION MAY BE OMITTED. This clinical summary was aggregated from multiple sources. Caution should be exercised in using it in the provision of clinical care. This summary normalizes information from multiple sources, and as a consequence, information in this document may materially change the coding, format and clinical context of patient data. In addition, data may be omitted in some cases. CLINICAL DECISIONS SHOULD BE BASED ON THE PRIMARY CLINICAL RECORDS. [employer] [facility]. provides no warranty or guarantee of the accuracy or completeness of information in this document.
[2023-10-06 14:27] VITALS: BP 117/57; PULSE 109; RESP 14; TEMP 37.4; O2SAT 99; BMI 19.2
--- NOTE | 2023-10-06 16:38 | PC.NURSE ---
Pt remains asymptomatic when this nurse checked on him in the ER waiting room approx 15:45. This nurse asked pt if he has ever been a JENNYFER pt to receive blood transfusions in our hospital before and pt responds no . Pt reports he has been admitted in our hospital and received blood at that time for a very low hgb. states the facility called them with the test result and wanted the pt to go to [place] but the did not want to drive that far. So she brought her to the nearest ER. called pt's PCP DR Acevedo to see if pt could be made JENNYFER pt but DR Acevedo was not comfortable with this idea. Psychiatric Np Светлана spent time getting pt's story and pt was insisting he felt fine and wanted to leave. Psychiatric Np Светлана talked to Dr Painter about this situation and how pt wants to leave and return tomorrow to get the blood transfusion. Dr Painter states he does not feel comfortable signing off on a JENNYFER order for a blood transfusion until he does his own blood work in this ER. All involved agree and this is relayed to pt and . It was at this time 1643 that pt decide to LWBS and return tomorrow on 10/07/23 for the blood transfusion. Psychiatric Np Светлана attempted to change pt's mind and instructed him to return tomorrow for the blood transfusion and she would take care of this. Светлана also instructed pt to return to ER for any problems or concerns if he must leave. Pt and verbalized understanding. Pt LWBS at 1643
== END 2023-10-06 16:44 | disposition left against medical advice (07) ==
PROVIDERS: Emergency Provider Emergency Medicine Emergency Medical Services; PCP Internal Medicine
DX: Z53.21 Procedure and treatment not carried out due to patient leaving prior to being seen by health care provider (principal)

== ENCOUNTER 2023-10-07 10:50 | Emergency (ER) | payer MEDICARE, SELFPAY ==
[2023-10-07 10:58] VITALS: BP 129/98; PULSE 110; RESP 18; TEMP 36.9; O2SAT 100; BMI 19.4
--- OUTSIDE RECORDS SUMMARY | 2023-10-07 11:12 | XMS_ITS | CCD ---
Author Name Unknown Address [address] [place] [address] Organization [facility] Care Team Providers Care Assistant Professor Of Marine Biology Name Role Phone LUCILLE HORTA Primary Care Unavailable LUCILLE HOTRA Referring Unavailable JIMMY LYNN Admitting Unavailable JIMMY LYNN Attending Unavailable LUCILLE HORTA JR Primary Care Physician PROVIDER, UNKNOWN Admitting Unavailable PROVIDER, UNKNOWN Attending Unavailable PROVIDER, UNKNOWN Admitting Unavailable PROVIDER, UNKNOWN Attending Unavailable RULA, DR ADKINS Primary Care Unavailable EVA, DR JENNIFER Garcia Attending Unavailwillard VELASQUEZ, DR JENNIFER Garcia Admitting Unavailwillard VELASQUEZ, DR JENNIFER Garcia Consulting UnavailMARIO Schwartz Consulting Unavailable DONALD LIMA Consulting Unavailable RULA, DR ADKINS Primary Care Unavailable JÚNIOR العراقي Admitting Unavailable JÚNIOR العراقي Attending Unavailable MARIO CULLEN Consulting Unavailable LUZ NIETO Consulting Unavailable CON .JÚNIOR Consulting Unavailable RULA, DR ADKINS Primary Care Unavailable DIAB ., JAZZY Admitting Unavailable DIAB ., JAZZY Consulting Unavailable DIAB ., JAZZY Attending Unavailable ERWIN HURD Attending Unavailable RULA, DR ADKINS Primary Care Unavailable VICKEYIVANIAAMED Admitting [...] FOtilia Admitting Unavailable NONE, XXXX Referring Unavailable Vickey, [...] Unavailable ALAHMAD, Alaa Admitting Unavailable VazquezWest nieves S Attending Unavailable Blank, Chong S Consulting Unavailable Blank, Chong S Consulting Unavailable Blank, Chong S Consulting Unavailable Blank, Chong S Consulting Unavailable Blank, Chong S Consulting Unavailable Blank, Chong S Consulting Unavailable Blank, Chong S Consulting Unavailable Blank, Chong S Consulting Unavailable Blank, Chong S Consulting Unavailable Blank, Chong S Consulting Unavailable Augusta, Andrea Consulting Unavailable Augusta, Andrea Consulting Unavailable Augusta, Andrea Consulting Unavailable Augusta, Andrea Consulting Unavailable Augusta, Andrea Consulting Unavailable Augusta, Andrea Consulting Unavailable Augusta, Andrea Consulting Unavailable Augusta, Andrea Consulting Unavailable Augusta, Andrea Consulting Unavailable RAMILA QUIROZ Referring Unavailable VICKEY, MOHAMED Admitting Unavailable VICKEY, MOHAMED Attending Unavailable FRENCH AUGUSTE Referring Unavailable YASIR NICHOLAS Referring Unavailable VICKEY, MOHAMED Admitting Unavailable VICKEY, MOHAMED Attending Unavailable ROSSANA MIRZA Referring Unavailable IVCKEY, MOHAMED Admitting Unavailable VICKEY, MOHAMED Attending Unavailable ANAIS VAZQUEZ Consulting Unavailable JUHI ALLEN Referring Unavailable NAZZAL, MUNIER Attending Unavailable NAZZAL, MUNIER Admitting Unavailable BURKET, MARCO A Admitting Unavailable BURKET, MARCO A Attending Unavailable VICKEY, MOHAMED Attending Unavailable VICKEY, MOHAMED Referring Unavailable VICKEY, MOHAMED Referring Unavailable ASSALY, HARMANHEDarrell Referring Unavailable TOFLINSKI, REBECCA Referring Unavailable JIMMY OWUSU Attending Unavailable VICKEY, MOHAMED Attending Unavailable VICKEY, MOHAMED Attending Unavailable SFAELOS, DOROTHY Attending Unavailable NUGENT, TANJA Referring Unavailable HER, LINUS Referring Unavailable HERCHER, MICHELLE Referring Unavailable SFAELOS, DOROTHY Referring Unavailable NUGENT, TANJA Referring Unavailable NUGENT, TANJA Referring Unavailable CLELIANA BROWN Referring Unavailable VICKEY, MOHAMED Admitting Unavailable VICKEY, MOHAMED Attending Unavailable JÚNIOR ANDUJAR Referring Unavailable VICKEY, MOHAMED Admitting Unavailable VICKEY, MOHAMED Attending Unavailable Allergies Allergy Classification Reported Allergen(s) Allergy Type Date of Onset Reaction(s) Facility (4 sources) Codeine; Translations: [codeine] Drug Allergy 9 [facility] Repository (5 sources) Iodine; Translations: [iodine] Drug Allergy 9 Unknown [facility] Repository (3 sources) Levamisole; Translations: [Phenergan] Drug Allergy 1 [facility] Repository (3 sources) Shellfish; Translations: [shellfish] Drug allergy (disorder) 9 [facility] Repository (18 sources) Codeine; Translations: [codeine] Drug Allergy Vomitus (substance) [facility] (16 sources) Iodine; Translations: [iodine] Drug Allergy Vomitus (substance) [facility] (19 sources) Promethazine; Translations: [promethazine] Drug Allergy 2 Vomitus (substance) [facility] (1 source) Iodine and Iodide Containing Products Drug allergy (disorder) [facility] Repository (5 sources) Shellfish; Translations: [shellfish] Drug allergy Vomiting (disorder) [facility] (2 sources) DAPTOmycin Drug Allergy Unknown [facility] Other (1 source) Shellfish; Translations: [SHELLFISH DERIVED] Propensity to adverse reactions to drug (disorder) 2 [facility] Repository (1 source) IODINATED CONTRAST MEDIA; Translations: [IODINATED CONTRAST MEDIA] Propensity to adverse reactions to drug (disorder) 3 [facility] Repository Medications Current Medications Medication Drug Class(es) [...] 0 Start Date: 11/26/22 Status: Ordered Biotin 42046 MCG as directed Orally bid Active carvedilol [...] 11/26/22 Status: Ordered take 1 capsule by [facility] every twenty-four hours Vitamin D3 1000 UNIT [...] # 2 cap(s), Refills(s) 0, Pharmacy: [facility] #[id number], 168, cm, 01/06/23 11:42:00 EDT, Height/Length Dosing, [...] daily Start Date: 11/26/22 Status: Ordered nystatin 893323 unt/ml oral suspension (2 sources) Polyene Antifungal [...] study, # 3 tab(s), Refills(s) 0, Pharmacy: [facility] #[id number], 168, cm, 01/06/23 11:42:00 EDT, Height/Length Dos... [...] cholesterol Start Date: 04/08/23 Status: Ordered sennosides, longterm 8.6 mg oral tablet (2 sources) Start: [...] day(s), # 180 tab(s), Refills(s) 3, Pharmacy: [facility] #[id number], 168, cm, 05/09/23 9:37:00 EDT, Height/Length Dosing, 51.5, kg, 04/08/23 8:25:00 EDT, Weight Dosing Start Date: 05/09/23 Stop Date: 05/03/24 Status: Ordered Start: 02-10-2023 End: 03-12-2023 take 1 tablet by mouth twice daily cilostazol 100 mg Tab 100 mg = 1 tab(s), Oral, BID, X 30 day(s), # 60 tab(s), Refills(s) 0, Pharmacy: [facility] #[id number], 168, cm, 01/06/23 11:42:00 EDT, Height/Length Dosing, [...] (2 sources) Start: 03-10-2023 oxymetazoline Nasal 0.05% [place] 2 spray(s), Nasal, BID Other (see comment), [...] Chronic Complication of device; implant or graft (4 sources) Infection and inflammatory reaction due to other cardiac and vascular devices, implants and grafts, initial encounter; Translations: [Infection and inflammatory reaction due [...] [Anemia, unspecified] Onset: 3 Episodic Diabetes mellitus without complication (6 sources) Type 2 diabetes mellitus without complication; Translations: [Type 2 diabetes mellitus without complications] Onset: 3 Chronic E Codes: Fall (1 source) Fall on same level from slipping, tripping and stumbling with subsequent striking against unspecified object, initial encounter; Translations: [FALL SAME LVL SLIP STRK UNS OBJ INT] Onset: 3 Episodic Esophageal disorders (6 sources) Gastroesophageal reflux disease without esophagitis; Translations: [Gastro-esophageal reflux disease without esophagitis] Onset: 3 Chronic Genitourinary symptoms and ill-defined conditions (1 [...] and knee, initial encounter] Onset: 3 Chronic Open wounds of extremities (2 sources) Unspecified open wound of unspecified toe(s) with damage to nail, initial encounter; Translations: [Unspecified open wound of unspecified toe(s) with damage to nail, initial encounter] Onset: 3 Episodic Other aftercare (4 sources) Follow-up status; Translations: [Encounter for follow-up examination after completed treatment for conditions other than malignant neoplasm] Onset: 3 Episodic Other aftercare (1 source) Surgical follow-up; Translations: [Encounter for other specified surgical aftercare] Onset: 3 Episodic Other aftercare (1 source) care home (current) use of anticoagulants; Translations: [ADMINISTRATIVE ASSOCIATE CURRNT USE ANTICOAGULANTS] Onset: 3 Episodic Other aftercare (1 source) computer terminal operator (current) use of aspirin; Translations: [ADMINISTRATIVE ASSOCIATE CURRENT USE OF ASPIRIN] Onset: 3 Episodic Other aftercare (1 source) computer terminal operator (current) use of antithrombotics/antipl atelets; Translations: [FCI ANTITHROMBOT/ANTIPLATL ETS] Onset: 3 Episodic Other aftercare (1 source) Other intermediate project manager (current) drug therapy; Translations: [OTH FCI CURRENT DRUG THERAPY] Onset: 3 Episodic Other aftercare (1 source) computer terminal operator (current) use of oral hypoglycemic drugs; Translations: [ADMINISTRATIVE ASSOCIATE USE ORAL HYPOGLYCEMIC DX] Onset: 3 Episodic [...] of circulatory system] Onset: 3 Episodic Other connective tissue disease (2 sources) Other muscle spasm; Translations: [Other muscle spasm] Onset: 3 Episodic Other injuries and conditions [...] Peripheral vascular disease, unspecified; Translations: [Atherosclerosis of [place] arteries of extremities with rest pain, left leg] Onset: 3 Chronic Phlebitis; thrombophlebitis and thromboembolism (3 sources) H/O: thrombosis 04-08-2023 Episodic Residual codes; unclassified (1 source) Patient encounter status; Translations: [Other specified health status] Onset: 3 Episodic Screening and history of mental health and substance abuse codes (1 source) Personal history of nicotine dependence; Translations: [PERSONAL HISTORY OF NICOTINE DEPEND] Onset: 3 Episodic Skin and subcutaneous tissue [...] [Other acute postprocedural pain] Onset: 11-03-2022 Episodic Superficial injury; contusion (3 sources) Contusion of right hip, initial encounter; Translations: [Contusion of abdominal wall, initial encounter] Onset: 11-03-2022 Episodic Results Test Name Value Interpretation Reference Range Facility Follow-Upon 10-05-2023 Follow-Up Normal [facility] Telephoneon 10-05-2023 Telephone Normal [facility] 36on 09-30-2023 36 No Opat received. Clare crawford faxed to us showing stable results. Normal [facility] 30on 09-26-2023 30 The patient is Moder ately Stable - Low risk of patient condition declining or worsening The patient's goals for the shift include Comfort The clinical goals for the shift include VSS Normal [facility] 30 Normal [facility] ANTI-XA (HEPARIN LEVEL)on HEPARIN UNFRACTIONATED (U/ML) IN PPP BY CHROMOGENIC METHOD 0.18 IU/mL Low 0.3-0.7 [facility] Comment on above: Result Comment: Masha roxaban and Apixaban will interfere with the anti Xa assay used to monitor UFH and LMWH. Performed By: #### L [id number] ####[facility] ([facility])[address] [facility] [address] BASIC METABOLIC PANELon 09-09 Anion gap [Moles/Vol] 8 mmol/L Normal 7-20 [facility] Comment on above: Performed By: #### L [id number] ####[facility] ([facility])[address] [place] [address] Calcium [Mass/Vol] 8.5 mg/dL Low 8.6-10.3 [facility] Comment on above: Performed By: #### L [id number] ####[facility] ([facility])[address] [place] [address] Chloride [Moles/Vol] 105 mmol/L Normal 98-107 [facility] Comment on above: Performed By: #### L [id number] ####[facility] ([facility])[address] [place] [address] CO2 [Moles/Vol] 26 mmol/L Normal 21-31 [facility] Comment on above: Performed By: #### L [id number] ####[facility] ([facility])[address] [place] [address] Creatinine [Mass/Vol] 0.40 mg/dL Low 0.70-1.30 [facility] Comment on above: Performed By: #### L [id number] ####[facility] ([facility])[address] [place] [address] GLOMERULAR FILTRATION RATE ML/MIN/1.73 SQ M.PREDICTED 113.1 mL/min/1.73m*2 Normal >60.0 [facility] Comment on above: Result Comment: [facility]???s estimated glomerular filtration rate (eGFR) will no [...] of individuals. Performed By: #### L [id number] ####[facility] ([facility])[address] [place] [address] Glucose [Mass/Vol] 92 mg/dL Normal 70-100 [facility] Comment on above: Performed By: #### L [id number] ####[facility] ([facility])[address] [place] [address] Potassium [Moles/Vol] 3.8 mmol/L Normal 3.5-5.1 [facility] Comment on above: Performed By: #### L [id number] ####[facility] ([facility])[address] [place] [address] Sodium [Moles/Vol] 135 mmol/L Low 136-145 [facility] Comment on above: Performed By: #### L [id number] ####[facility] ([facility])[address] [place] [address] Urea nitrogen [Mass/Vol] 14 mg/dL Normal 7-25 [facility] Comment on above: Performed By: #### L [id number] ####[facility] ([facility])[address] [place] [address] UREA NITROGEN/CREATININE (MASS RATIO) IN SER/PLAS 35.0 Normal [facility] Comment on above: Performed By: #### L [id number] ####[facility] ([facility])[address] [place] [address] CBC WITH AUTO DIFFERENTIALon 09-26-2023 Erythrocyte distribution width (RBC) [Ratio] 18.0 % High 11.5-15.0 [facility] Comment on above: Performed By: #### L [id number] ####[facility] ([facility])[address] [place] [address] ERYTHROCYTE MEAN CORPUSCULAR HEMOGLOBIN CONCENTRATION (G/DL) BY AUTOMATED 32.0 g/dL Normal 32.0-35.0 [facility] Comment on above: Performed By: #### L [id number] ####[facility] ([facility])[address] [place] [address] Hematocrit (Bld) [Volume fraction] 22.8 % Low 39.0-55.0 [facility] Comment on above: Performed By: #### L [id number] ####[facility] ([facility])[address] [place] [address] Hemoglobin (Bld) [Mass/Vol] 7.3 g/dL Low 13.0-17.0 [facility] Comment on above: Performed By: #### L [id number] ####[facility] ([facility])[address] [place] [address] IMMATURE PLATELET FRACTION % 3.7 % Normal 0.8-6.3 [facility] Comment on above: Performed By: #### L [id number] ####[facility] ([facility])[address] [place] [address] MCH (RBC) [Entitic mass] 27.9 pg Normal 27.0-33.0 [facility] Comment on above: Performed By: #### L [id number] ####[facility] ([facility])[address] [place], [place] [address] MCV (RBC) [Entitic vol] 87.0 fL Normal 82.0-98.0 [facility] Comment on above: Performed By: #### L [id number] ####[facility] ([facility])[address] [place] [address] NRBC (PER 100 WBCS) BY AUTOMATED COUNT 0.0 % Normal 0 [facility] Comment on above: Performed By: #### L [id number] ####[facility] ([facility])[address] [place] [address] PLATELETS (10*3/UL) IN BLOOD AUTOMATED COUNT 75 10*3/uL Low 150-400 [facility] Comment on above: Result Comment: CASSIE ODONNELL PV = 73 @ 09/25/23 Performed By: #### L [id number] ####[facility] ([facility])[address] [place] [address] RBC (Bld) [#/Vol] 2.62 10*6/uL Low 4.20-5.70 [facility] Comment on above: Performed By: #### L [id number] ####[facility] ([facility])[address] [place], [place] [address] WBC (Bld) [#/Vol] 2.12 10*3/uL Low 4.00-10.60 [facility] Comment on above: Performed By: #### L [id number] ####[facility] ([facility])[address] [place], [place] [address] MAGNESIUMon 09-26-2023 Magnesium [Mass/Vol] 1.6 mg/dL Low 1.9-2.7 [facility] Comment on above: Performed By: #### L [id number] ####[facility] ([facility])[address] [place] [address] MANUAL DIFFERENTIALon 2022 BASOPHILS (10*3/UL) IN BLOOD BY CALCULATION 0.01 10*3/uL Normal 0.00-0.20 [facility] Comment on above: Performed By: #### L [id number] ####[facility] ([facility])[address] [place] [address] BASOPHILS/100 LEUKOCYTES IN BLOOD BY AUTOMATED COUNT 0.5 % Normal 0.0-1.0 [facility] Comment on above: Performed By: #### L [id number] ####[facility] ([facility])[address] [place] [address] EOSINOPHILS (10*3/UL) IN BLOOD BY CALCULATION 0.02 10*3/uL Normal 0.00-0.50 [facility] Comment on above: Performed By: #### L [id number] ####[facility] ([facility])[address] [place] [address] EOSINOPHILS/100 LEUKOCYTES IN BLOOD BY AUTOMATED COUNT 0.9 % Normal 0.0-6.0 [facility] Comment on above: Performed By: #### L [id number] ####[facility] ([facility])[address] [place] [address] IMMATURE GRANULOCYTES (10*3/UL) IN BLOOD BY CALCULATION 0.01 10*3/uL Normal 0.00-0.20 [facility] Comment on above: Performed By: #### L [id number] ####[facility] ([facility])[address] [place] [address] IMMATURE GRANULOCYTES/100 LEUKOCYTES IN BLOOD BY AUTOMATED COUNT 0.5 % Normal 0.0-1.0 [facility] Comment on above: Performed By: #### L [id number] ####[facility] ([facility])[address] [place] [address] LYMPHOCYTES (10*3/UL) IN BLOOD BY CALCULATION 0.36 10*3/uL Low 1.20-4.00 [facility] Comment on above: Performed By: #### L [id number] ####[facility] ([facility])[address] [place] [address] LYMPHOCYTES/100 LEUKOCYTES IN BLOOD BY AUTOMATED COUNT 17.0 % Low 20.0-45.0 [facility] Comment on above: Performed By: #### L [id number] ####[facility] ([facility])[address] [place] [address] MONOCYTES (10*3/UL) IN BLOOD BY CALCUATION 0.24 10*3/uL Normal 0.10-1.00 [facility] Comment on above: Performed By: #### L [id number] ####[facility] ([facility])[address] [place] [address] MONOCYTES/100 LEUKOCYTES IN BLOOD BY AUTOMATED COUNT 11.3 % Normal 5.0-12.0 [facility] Comment on above: Performed By: #### L [id number] ####[facility] ([facility])[address] [place] [address] NEUTROPHILS (10*3/UL) IN BLOOD BY CALCULATION 1.5 10*3/uL Low 1.6-7.6 [facility] Comment on above: Performed By: #### L [id number] ####[facility] ([facility])[address] [place] [address] NEUTROPHILS/100 LEUKOCYTES IN BLOOD BY AUTOMATED COUNT 69.8 % Normal 40.0-72.0 [facility] Comment on above: Performed By: #### L [id number] ####[facility] ([facility])[address] [place] [address] NURSNOTEon 09-26-2023 NURSNOTE Normal [facility] NURSNOTE Normal [facility] PHOSPHORUSon 09-26-2023 Magnesium [Mass/Vol] 3.2 mg/dL Normal 2.5-5.0 [facility] Comment on above: Performed By: #### L [id number] ####[facility] ([facility])[address] [place] [address] POCT GLUCOSE METER UNSOLICIT ED RESULTSon 09-26-2023 Glucose [Mass/Vol] 117 mg/dL High 70-105 [facility] Comment on above: Order Comment: Waive d Testing in the ED is performed under the ED CLIA certificate #[id number]. Result Comment: [email or web address] Performed By: #### L [id number] ####[facility] ([facility])[address] [place] [address] 30on 09-25-2023 30 Normal [facility] ANTI-XA (HEPARIN LEVEL)on HEPARIN UNFRACTIONATED (U/ML) IN PPP BY CHROMOGENIC METHOD 0.17 IU/mL Low 0.3-0.7 [facility] Comment on above: Result Comment: Masha roxaban and Apixaban will interfere with the anti Xa assay used to monitor UFH and LMWH. Performed By: #### L [id number] ####[facility] ([facility])[address] [place] [address] HEPARIN UNFRACTIONATED (U/ML) IN PPP BY CHROMOGENIC METHOD 0.19 IU/mL Low 0.3-0.7 [facility] Comment on above: Result Comment: Masha roxaban and Apixaban will interfere with the anti Xa assay used to monitor UFH and LMWH. Performed By: #### L [id number] ####[facility] ([facility])[address] [place] [address] HEPARIN UNFRACTIONATED (U/ML) IN PPP BY CHROMOGENIC METHOD 0.15 IU/mL Invalid Interpretation Code 0.3-0.7 [facility] Comment on above: Result Comment: Masha roxaban and Apixaban will interfere with the anti Xa assay used to monitor UFH and LMWH. Performed By: #### L [id number] ####[facility] ([facility])[address] [place] [address] APTTon 09-25-2023 ACTIVATED PARTIAL THROMBOPLASTIN TIME IN PPP BY COAGULATION ASSAY 71.9 Seconds High 25.0-35.0 [facility] Comment on above: Result Comment: Clin ical significance of the APTT is questionable in the presence of heparin. Performed By: #### L [id number] ####[facility] ([facility])[address] [place] [address] BASIC METABOLIC PANELon 09-09 Anion gap [Moles/Vol] 8 mmol/L Normal 7-20 [facility] Comment on above: Performed By: #### L [id number] ####[facility] ([facility])[address] [place] [address] Calcium [Mass/Vol] 8.4 mg/dL Low 8.6-10.3 [facility] Comment on above: Performed By: #### L [id number] ####[facility] ([facility])[address] [place] [address] Chloride [Moles/Vol] 105 mmol/L Normal 98-107 [facility] Comment on above: Performed By: #### L [id number] ####[facility] ([facility])[address] [place] [address] CO2 [Moles/Vol] 25 mmol/L Normal 21-31 [facility] Comment on above: Performed By: #### L [id number] ####[facility] ([facility])[address] [place] [address] Creatinine [Mass/Vol] 0.31 mg/dL Low 0.70-1.30 [facility] Comment on above: Performed By: #### L [id number] ####[facility] ([facility])[address] [place] [address] GLOMERULAR FILTRATION RATE ML/MIN/1.73 SQ M.PREDICTED 122.1 mL/min/1.73m*2 Normal >60.0 [facility] Comment on above: Result Comment: [facility]???s estimated glomerular filtration rate (eGFR) will no [...] of individuals. Performed By: #### L [id number] ####[facility] [place] [address] Glucose [Mass/Vol] 107 mg/dL High 70-100 [facility] Comment on above: Performed By: #### L [id number] ####[facility] ([facility])[address] [place] [address] Potassium [Moles/Vol] 3.7 mmol/L Normal 3.5-5.1 [facility] Comment on above: Performed By: #### L [id number] ####[facility] ([facility])[address] [place] [address] Sodium [Moles/Vol] 134 mmol/L Low 136-145 [facility] Comment on above: Performed By: #### L [id number] ####[facility] ([facility])[address] [place] [address] Urea nitrogen [Mass/Vol] 13 mg/dL Normal 7-25 [facility] Comment on above: Performed By: #### L [id number] ####[facility] ([facility])[address] [place] [address] UREA NITROGEN/CREATININE (MASS RATIO) IN SER/PLAS 41.9 Normal [facility] Comment on above: Performed By: #### L [id number] ####[facility] ([facility])[address] [place] [address] CBC WITH AUTO DIFFERENTIALon 09-25-2023 Erythrocyte distribution width (RBC) [Ratio] 17.7 % High 11.5-15.0 [facility] Comment on above: Performed By: #### L [id number] ####[facility] ([facility])[address] [place] [address] ERYTHROCYTE MEAN CORPUSCULAR HEMOGLOBIN CONCENTRATION (G/DL) BY AUTOMATED 31.3 g/dL Low 32.0-35.0 [facility] Comment on above: Performed By: #### L [id number] ####[facility] ([facility])[address] [place] [address] Hematocrit (Bld) [Volume fraction] 24.0 % Low 39.0-55.0 [facility] Comment on above: Performed By: #### L [id number] ####[facility] ([facility])[address] [place] [address] Hemoglobin (Bld) [Mass/Vol] 7.5 g/dL Low 13.0-17.0 [facility] Comment on above: Performed By: #### L [id number] ####[facility] [place] [address] IMMATURE PLATELET FRACTION % 2.7 % Normal 0.8-6.3 [facility] Comment on above: Performed By: #### L [id number] ####[facility] [place] [address] MCH (RBC) [Entitic mass] 27.0 pg Normal 27.0-33.0 [facility] Comment on above: Performed By: #### L [id number] ####[facility] ([facility])[address] [place] [address] MCV (RBC) [Entitic vol] 86.3 fL Normal 82.0-98.0 [facility] Comment on above: Performed By: #### L [id number] ####[facility] ([facility])[address] [place] [address] NRBC (PER 100 WBCS) BY AUTOMATED COUNT 0.0 % Normal 0 [facility] Comment on above: Performed By: #### L [id number] ####[facility] ([facility])[address] [place] [address] PLATELETS (10*3/UL) IN BLOOD AUTOMATED COUNT 73 10*3/uL Low 150-400 [facility] Comment on above: Result Comment: Last plt 73 1d Performed By: #### L [id number] ####[facility] [place] [address] RBC (Bld) [#/Vol] 2.78 10*6/uL Low 4.20-5.70 [facility] Comment on above: Performed By: #### L [id number] ####[facility] ([facility])[address] [place] [address] WBC (Bld) [#/Vol] 2.11 10*3/uL Low 4.00-10.60 [facility] Comment on above: Performed By: #### L [id number] ####[facility] ([facility])[address] [place] [address] MAGNESIUMon 09-25-2023 Magnesium [Mass/Vol] 1.6 mg/dL Low 1.9-2.7 [facility] Comment on above: Performed By: #### L [id number] ####[facility] ([facility])[address] [place] [address] MANUAL DIFFERENTIALon 2022 BASOPHILS (10*3/UL) IN BLOOD BY CALCULATION 0.01 10*3/uL Normal 0.00-0.20 [facility] Comment on above: Performed By: #### L [id number] ####[facility] ([facility])[address] [place] [address] BASOPHILS/100 LEUKOCYTES IN BLOOD BY AUTOMATED COUNT 0.5 % Normal 0.0-1.0 [facility] Comment on above: Performed By: #### L [id number] ####[facility] ([facility])[address] [place] [address] EOSINOPHILS (10*3/UL) IN BLOOD BY CALCULATION 0.04 10*3/uL Normal 0.00-0.50 [facility] Comment on above: Performed By: #### L [id number] ####[facility] ([facility])[address] [place] [address] EOSINOPHILS/100 LEUKOCYTES IN BLOOD BY AUTOMATED COUNT 1.9 % Normal 0.0-6.0 [facility] Comment on above: Performed By: #### L [id number] ####[facility] ([facility])[address] [place] [address] IMMATURE GRANULOCYTES (10*3/UL) IN BLOOD BY CALCULATION 0.01 10*3/uL Normal 0.00-0.20 [facility] Comment on above: Performed By: #### L [id number] ####[facility] [place] [address] IMMATURE GRANULOCYTES/100 LEUKOCYTES IN BLOOD BY AUTOMATED COUNT 0.5 % Normal 0.0-1.0 [facility] Comment on above: Performed By: #### L [id number] ####[facility] [place], [place] [address] LYMPHOCYTES (10*3/UL) IN BLOOD BY CALCULATION 0.37 10*3/uL Low 1.20-4.00 [facility] Comment on above: Performed By: #### L [id number] ####[facility] ([facility])[address] [place], [place] [address] LYMPHOCYTES/100 LEUKOCYTES IN BLOOD BY AUTOMATED COUNT 17.5 % Low 20.0-45.0 [facility] Comment on above: Performed By: #### L [id number] ####[facility] ([facility])[address] [place] [address] MONOCYTES (10*3/UL) IN BLOOD BY CALCUATION 0.22 10*3/uL Normal 0.10-1.00 [facility] Comment on above: Performed By: #### L [id number] ####[facility] ([facility])[address] [place], [place] [address] MONOCYTES/100 LEUKOCYTES IN BLOOD BY AUTOMATED COUNT 10.4 % Normal 5.0-12.0 [facility] Comment on above: Performed By: #### L [id number] ####[facility] [place], [place] [address] NEUTROPHILS (10*3/UL) IN BLOOD BY CALCULATION 1.5 10*3/uL Low 1.6-7.6 [facility] Comment on above: Performed By: #### L [id number] ####[facility] ([facility])[address] [place], [place] [address] NEUTROPHILS/100 LEUKOCYTES IN BLOOD BY AUTOMATED COUNT 69.2 % Normal 40.0-72.0 [facility] Comment on above: Performed By: #### L [id number] ####[facility] ([facility])[address] [place] [address] NURSNOTEon 09-25-2023 NURSNOTE Pt would not let franics lee change his wound vac, stated that it would be changed tomorrow when he is discharged. He did however let us bathe him, change linens and change his picc line dressing today. Paulina Kay RN [facility] PHOSPHORUSon 09-25-2023 Magnesium [Mass/Vol] 2.7 mg/dL Normal 2.5-5.0 [facility] Comment on above: Performed By: #### L [id number] ####[facility] ([facility])[address] [place] [address] POCT GLUCOSE METER UNSOLICIT ED RESULTSon 09-25-2023 Glucose [Mass/Vol] 97 mg/dL Normal 70-105 [facility] Comment on above: Order Comment: Waive d Testing in the ED is performed under the ED CLIA certificate #[id number]. Result Comment: [email or web address] Performed By: #### L [id number] ####[facility] ([facility])[address] [place] [address] Glucose [Mass/Vol] 188 mg/dL High 70-105 [facility] Comment on above: Order Comment: Waive d Testing in the ED is performed under the ED CLIA certificate #[id number]. Result Comment: [email or web address] Performed By: #### L [id number] ####[facility] ([facility])[address] [place] [address] Glucose [Mass/Vol] 125 mg/dL High 70-105 [facility] Comment on above: Order Comment: Waive d Testing in the ED is performed under the ED CLIA certificate #[id number]. Result Comment: [email or web address] Performed By: #### L [id number] ####[facility] ([facility])[address] [place] [address] Glucose [Mass/Vol] 108 mg/dL High 70-105 [facility] Comment on above: Order Comment: Waive d Testing in the ED is performed under the ED CLIA certificate #[id number]. Result Comment: [email or web address] Performed By: #### L [id number] ####[facility] ([facility])[address] [place] [address] 30on 09-24-2023 30 Normal [facility] 30 Normal [facility] ANTI-XA (HEPARIN LEVEL)on HEPARIN UNFRACTIONATED (U/ML) IN PPP BY CHROMOGENIC METHOD <0.10 Invalid Interpretation Code 0.3-0.7 [facility] Comment on above: Result Comment: Davidson roxaban and Apixaban will interfere with the anti Xa assay used to monitor UFH and LMWH. Performed By: #### L [id number] ####[facility] ([facility])[address] [place] [address] BASIC METABOLIC PANELon 09-09 Anion gap [Moles/Vol] 8 mmol/L Normal 7-20 [facility] Comment on above: Performed By: #### L [id number] ####[facility] ([facility])[address] [place] [address] Calcium [Mass/Vol] 8.4 mg/dL Low 8.6-10.3 [facility] Comment on above: Performed By: #### L [id number] ####[facility] [place] [address] Chloride [Moles/Vol] 103 mmol/L Normal 98-107 [facility] Comment on above: Performed By: #### L [id number] ####[facility] ([facility])[address] [place] [address] CO2 [Moles/Vol] 28 mmol/L Normal 21-31 [facility] Comment on above: Performed By: #### L [id number] ####[facility] ([facility])[address] [place] [address] Creatinine [Mass/Vol] 0.36 mg/dL Low 0.70-1.30 [facility] Comment on above: Performed By: #### L [id number] ####[facility] ([facility])[address] [place] [address] GLOMERULAR FILTRATION RATE ML/MIN/1.73 SQ M.PREDICTED 116.7 mL/min/1.73m*2 Normal >60.0 [facility] Comment on above: Result Comment: The [facility]???s estimated glomerular filtration rate (eGFR) will no [...] of individuals. Performed By: #### L [id number] ####[facility] ([facility])[address] [place] [address] Glucose [Mass/Vol] 100 mg/dL Normal 70-100 [facility] Comment on above: Performed By: #### L [id number] ####[facility] ([facility])[address] [place] [address] Potassium [Moles/Vol] 3.5 mmol/L Normal 3.5-5.1 [facility] Comment on above: Performed By: #### L [id number] ####[facility] ([facility])[address] [place] [address] Sodium [Moles/Vol] 135 mmol/L Low 136-145 [facility] Comment on above: Performed By: #### L [id number] ####[facility] ([facility])[address] [place] [address] Urea nitrogen [Mass/Vol] 13 mg/dL Normal 7-25 [facility] Comment on above: Performed By: #### L [id number] ####[facility] ([facility])[address] [place] [address] UREA NITROGEN/CREATININE (MASS RATIO) IN SER/PLAS 36.1 Normal [facility] Comment on above: Performed By: #### L [id number] ####[facility] ([facility])[address] [place] [address] CBC WITH AUTO DIFFERENTIALon 09-24-2023 Erythrocyte distribution width (RBC) [Ratio] 17.8 % High 11.5-15.0 [facility] Comment on above: Performed By: #### L [id number] ####[facility] ([facility])[address] [place] [address] ERYTHROCYTE MEAN CORPUSCULAR HEMOGLOBIN CONCENTRATION (G/DL) BY AUTOMATED 32.1 g/dL Normal 32.0-35.0 [facility] Comment on above: Performed By: #### L [id number] ####[facility] ([facility])[address] [place] [address] Hematocrit (Bld) [Volume fraction] 23.7 % Low 39.0-55.0 [facility] Comment on above: Performed By: #### L [id number] ####[facility] ([facility])[address] [place] [address] Hemoglobin (Bld) [Mass/Vol] 7.6 g/dL Low 13.0-17.0 [facility] Comment on above: Performed By: #### L [id number] ####[facility] ([facility])[address] [place] [address] IMMATURE PLATELET FRACTION % 3.1 % Normal 0.8-6.3 [facility] Comment on above: Performed By: #### L [id number] ####[facility] ([facility])[address] [place] [address] MCH (RBC) [Entitic mass] 27.7 pg Normal 27.0-33.0 [facility] Comment on above: Performed By: #### L [id number] ####[facility] [place] [address] MCV (RBC) [Entitic vol] 86.5 fL Normal 82.0-98.0 [facility] Comment on above: Performed By: #### L [id number] ####[facility] ([facility])[address] [place] [address] NRBC (PER 100 WBCS) BY AUTOMATED COUNT 0.0 % Normal 0 [facility] Comment on above: Performed By: #### L [id number] ####[facility] ([facility])[address] [place] [address] PLATELETS (10*3/UL) IN BLOOD AUTOMATED COUNT 73 10*3/uL Low 150-400 [facility] Comment on above: Performed By: #### L [id number] ####[facility] ([facility])[address] [place] [address] RBC (Bld) [#/Vol] 2.74 10*6/uL Low 4.20-5.70 [facility] Comment on above: Performed By: #### L [id number] ####[facility] ([facility])[address] [place] [address] WBC (Bld) [#/Vol] 2.37 10*3/uL Low 4.00-10.60 [facility] Comment on above: Performed By: #### L [id number] ####[facility] ([facility])[address] [place] [address] MAGNESIUMon 09-24-2023 Magnesium [Mass/Vol] 1.6 mg/dL Low 1.9-2.7 [facility] Comment on above: Performed By: #### L [id number] ####[facility] ([facility])[address] [place] [address] MANUAL DIFFERENTIALon 2022 BASOPHILS (10*3/UL) IN BLOOD BY CALCULATION 0.01 10*3/uL Normal 0.00-0.20 [facility] Comment on above: Performed By: #### L [id number] ####[facility] ([facility])[address] [place] [address] BASOPHILS/100 LEUKOCYTES IN BLOOD BY AUTOMATED COUNT 0.4 % Normal 0.0-1.0 [facility] Comment on above: Performed By: #### L [id number] ####[facility] ([facility])[address] [place] [address] EOSINOPHILS (10*3/UL) IN BLOOD BY CALCULATION 0.03 10*3/uL Normal 0.00-0.50 [facility] Comment on above: Performed By: #### L [id number] ####[facility] ([facility])[address] [place] [address] EOSINOPHILS/100 LEUKOCYTES IN BLOOD BY AUTOMATED COUNT 1.3 % Normal 0.0-6.0 [facility] Comment on above: Performed By: #### L [id number] ####[facility] ([facility])[address] [place] [address] IMMATURE GRANULOCYTES (10*3/UL) IN BLOOD BY CALCULATION 0.01 10*3/uL Normal 0.00-0.20 [facility] Comment on above: Performed By: #### L [id number] ####[facility] ([facility])[address] [place] [address] IMMATURE GRANULOCYTES/100 LEUKOCYTES IN BLOOD BY AUTOMATED COUNT 0.4 % Normal 0.0-1.0 [facility] Comment on above: Performed By: #### L [id number] ####[facility] ([facility])[address] [place] [address] LYMPHOCYTES (10*3/UL) IN BLOOD BY CALCULATION 0.37 10*3/uL Low 1.20-4.00 [facility] Comment on above: Performed By: #### L [id number] ####[facility] ([facility])[address] [place] [address] LYMPHOCYTES/100 LEUKOCYTES IN BLOOD BY AUTOMATED COUNT 15.6 % Low 20.0-45.0 [facility] Comment on above: Performed By: #### L [id number] ####[facility] ([facility])[address] [place] [address] MONOCYTES (10*3/UL) IN BLOOD BY CALCUATION 0.19 10*3/uL Normal 0.10-1.00 [facility] Comment on above: Performed By: #### L [id number] ####[facility] ([facility])[address] [place] [address] MONOCYTES/100 LEUKOCYTES IN BLOOD BY AUTOMATED COUNT 8.0 % Normal 5.0-12.0 [facility] Comment on above: Performed By: #### L [id number] ####[facility] ([facility])[address] [place] [address] NEUTROPHILS (10*3/UL) IN BLOOD BY CALCULATION 1.8 10*3/uL Normal 1.6-7.6 [facility] Comment on above: Performed By: #### L [id number] ####[facility] ([facility])[address] [place], [place] [address] NEUTROPHILS/100 LEUKOCYTES IN BLOOD BY AUTOMATED COUNT 74.3 % High 40.0-72.0 [facility] Comment on above: Performed By: #### L [id number] ####[facility] ([facility])[address] [place] [address] PHOSPHORUSon 09-24-2023 Magnesium [Mass/Vol] 3.0 mg/dL Normal 2.5-5.0 [facility] Comment on above: Performed By: #### L [id number] ####[facility] ([facility])[address] [place] [address] POCT GLUCOSE METER UNSOLICIT ED RESULTSon 09-24-2023 Glucose [Mass/Vol] 188 mg/dL High 70-105 [facility] Comment on above: Order Comment: Waive d Testing in the ED is performed under the ED CLIA certificate #[id number]. Result Comment: [email or web address] Performed By: #### L [id number] ####[facility] ([facility])[address] [place] [address] Glucose [Mass/Vol] 170 mg/dL High 70-105 [facility] Comment on above: Order Comment: Waive d Testing in the ED is performed under the ED CLIA certificate #[id number]. Result Comment: [email or web address] Performed By: #### L [id number] ####[facility] ([facility])[address] [facility] [place] [address] Glucose [Mass/Vol] 237 mg/dL High 70-105 [facility] Comment on above: Order Comment: Waive d Testing in the ED is performed under the ED CLIA certificate #[id number]. Result Comment: [email or web address] Performed By: #### L [id number] ####[facility] ([facility])[address] [facility] [place] [address] Glucose [Mass/Vol] 105 mg/dL Normal 70-105 [facility] Comment on above: Order Comment: Waive d Testing in the ED is performed under the ED CLIA certificate #[id number]. Result Comment: [email or web address] Performed By: #### L [id number] ####[facility] ([facility])[address] [facility] [place] [address] VANCOMYCIN, TROUGHon 023 VANCOMYCIN (UG/ML) IN SER/PLAS - TROUGH 11.7 ug/mL Normal 5.0-20.0 [facility] Comment on above: Performed By: #### L [id number] ####[facility] ([facility])[address] [facility] [place] [address] 30on 09-23-2023 30 Normal [facility] ANTI-XA (HEPARIN LEVEL)on HEPARIN UNFRACTIONATED (U/ML) IN PPP BY CHROMOGENIC METHOD 0.30 IU/mL Normal 0.3-0.7 [facility] Comment on above: Result Comment: Davidson roxaban and Apixaban will interfere with the anti Xa assay used to monitor UFH and LMWH. Performed By: #### L [id number] ####[facility] ([facility])[address] [place] [address] HEPARIN UNFRACTIONATED (U/ML) IN PPP BY CHROMOGENIC METHOD 0.38 IU/mL Normal 0.3-0.7 [facility] Comment on above: Result Comment: Davidson roxaban and Apixaban will interfere with the anti Xa assay used to monitor UFH and LMWH. Performed By: #### L [id number] ####[facility] ([facility])[address] [place] [address] HEPARIN UNFRACTIONATED (U/ML) IN PPP BY CHROMOGENIC METHOD 0.35 IU/mL Normal 0.3-0.7 [facility] Comment on above: Result Comment: Masha roxaban and Apixaban will interfere with the anti Xa assay used to monitor UFH and LMWH. Performed By: #### L [id number] ####[facility] ([facility])[address] [place] [address] HEPARIN UNFRACTIONATED (U/ML) IN PPP BY CHROMOGENIC METHOD 0.29 IU/mL Low 0.3-0.7 [facility] Comment on above: Result Comment: Masha roxaban and Apixaban will interfere with the anti Xa assay used to monitor UFH and LMWH. Performed By: #### L [id number] ####[facility] ([facility])[address] [place] [address] BASIC METABOLIC PANELon 12- Anion gap [Moles/Vol] 8 mmol/L Normal 7-20 [facility] Comment on above: Performed By: #### L [id number] ####[facility] ([facility])[address] [place] [address] Calcium [Mass/Vol] 7.9 mg/dL Low 8.6-10.3 [facility] Comment on above: Performed By: #### L [id number] ####[facility] ([facility])[address] [place] [address] Chloride [Moles/Vol] 104 mmol/L Normal 98-107 [facility] Comment on above: Performed By: #### L [id number] ####[facility] ([facility])[address] [place] [address] CO2 [Moles/Vol] 26 mmol/L Normal 21-31 [facility] Comment on above: Performed By: #### L [id number] ####[facility] ([facility])[address] [place] [address] Creatinine [Mass/Vol] 0.44 mg/dL Low 0.70-1.30 [facility] Comment on above: Performed By: #### L [id number] ####[facility] ([facility])[address] [place] [address] GLOMERULAR FILTRATION RATE ML/MIN/1.73 SQ M.PREDICTED 109.9 mL/min/1.73m*2 Normal >60.0 [facility] Comment on above: Result Comment: [facility]???s estimated glomerular filtration rate (eGFR) will no [...] of individuals. Performed By: #### L [id number] ####[facility] ([facility])[address] [place] [address] Glucose [Mass/Vol] 110 mg/dL High 70-100 [facility] Comment on above: Performed By: #### L [id number] ####[facility] ([facility])[address] [place] [address] Potassium [Moles/Vol] 3.7 mmol/L Normal 3.5-5.1 [facility] Comment on above: Performed By: #### L [id number] ####[facility] ([facility])[address] [place] [address] Sodium [Moles/Vol] 134 mmol/L Low 136-145 [facility] Comment on above: Performed By: #### L [id number] ####[facility] ([facility])[address] [place] [address] Urea nitrogen [Mass/Vol] 16 mg/dL Normal 7-25 [facility] Comment on above: Performed By: #### L [id number] ####[facility] ([facility])[address] [place] [address] UREA NITROGEN/CREATININE (MASS RATIO) IN SER/PLAS 36.4 Normal [facility] Comment on above: Performed By: #### L [id number] ####[facility] [place] [address] CBC WITH AUTO DIFFERENTIALon 09-23-2023 Erythrocyte distribution width (RBC) [Ratio] 17.6 % High 11.5-15.0 [facility] Comment on above: Performed By: #### L [id number] ####[facility] ([facility])[address] [place] [address] ERYTHROCYTE MEAN CORPUSCULAR HEMOGLOBIN CONCENTRATION (G/DL) BY AUTOMATED 32.3 g/dL Normal 32.0-35.0 [facility] Comment on above: Performed By: #### L [id number] ####[facility] ([facility])[address] [place] [address] Hematocrit (Bld) [Volume fraction] 23.5 % Low 39.0-55.0 [facility] Comment on above: Performed By: #### L [id number] ####[facility] ([facility])[address] [place] [address] Hemoglobin (Bld) [Mass/Vol] 7.6 g/dL Low 13.0-17.0 [facility] Comment on above: Result Comment: Resu lts checked pt has wound vac after surgery on 09/22/23 Performed By: #### L [id number] ####[facility] ([facility])[address] [place] [address] IMMATURE PLATELET FRACTION % 2.3 % Normal 0.8-6.3 [facility] Comment on above: Performed By: #### L [id number] ####[facility] ([facility])[address] [place] [address] MCH (RBC) [Entitic mass] 27.7 pg Normal 27.0-33.0 [facility] Comment on above: Performed By: #### L [id number] ####[facility] ([facility])[address] [place] [address] MCV (RBC) [Entitic vol] 85.8 fL Normal 82.0-98.0 [facility] Comment on above: Performed By: #### L [id number] ####[facility] LAB ([facility])[address] [place] [address] NRBC (PER 100 WBCS) BY AUTOMATED COUNT 0.0 % Normal 0 [facility] Comment on above: Performed By: #### L [id number] ####[facility] ([facility])[address] [place] [address] PLATELETS (10*3/UL) IN BLOOD AUTOMATED COUNT 71 10*3/uL Low 150-400 [facility] Comment on above: Result Comment: Last plt 109 1d Performed By: #### L [id number] ####[facility] ([facility])[address] [place] [address] RBC (Bld) [#/Vol] 2.74 10*6/uL Low 4.20-5.70 [facility] Comment on above: Performed By: #### L [id number] ####[facility] ([facility])[address] [place] [address] WBC (Bld) [#/Vol] 2.37 10*3/uL Low 4.00-10.60 [facility] Comment on above: Performed By: #### L [id number] ####[facility] ([facility])[address] [place] [address] HEMOGLOBIN AND HEMATOCRIT, B LOODon 09-23-2023 Hematocrit (Bld) [Volume fraction] 26.5 % Low 39.0-55.0 [facility] Comment on above: Performed By: #### L [id number] ####[facility] ([facility])[address] [place] [address] Hemoglobin (Bld) [Mass/Vol] 8.4 g/dL Low 13.0-17.0 [facility] Comment on above: Performed By: #### L [id number] ####[facility] ([facility])[address] [place] [address] Hematocrit (Bld) [Volume fraction] 24.0 % Low 39.0-55.0 [facility] Comment on above: Performed By: #### L [id number] ####[facility] ([facility])[address] [place] [address] Hemoglobin (Bld) [Mass/Vol] 7.7 g/dL Low 13.0-17.0 [facility] Comment on above: Performed By: #### L [id number] ####[facility] ([facility])[address] [place] [address] MAGNESIUMon 09-23-2023 Magnesium [Mass/Vol] 1.6 mg/dL Low 1.9-2.7 [facility] Comment on above: Performed By: #### L [id number] ####[facility] ([facility])[address] [place] [address] MANUAL DIFFERENTIALon 2022 BASOPHILS (10*3/UL) IN BLOOD BY CALCULATION 0.01 10*3/uL Normal 0.00-0.20 [facility] Comment on above: Performed By: #### L [id number] ####[facility] ([facility])[address] [place] [address] BASOPHILS/100 LEUKOCYTES IN BLOOD BY AUTOMATED COUNT 0.4 % Normal 0.0-1.0 [facility] Comment on above: Performed By: #### L [id number] ####[facility] ([facility])[address] [place] [address] EOSINOPHILS (10*3/UL) IN BLOOD BY CALCULATION 0.04 10*3/uL Normal 0.00-0.50 [facility] Comment on above: Performed By: #### L [id number] ####[facility] [place] [address] EOSINOPHILS/100 LEUKOCYTES IN BLOOD BY AUTOMATED COUNT 1.7 % Normal 0.0-6.0 [facility] Comment on above: Performed By: #### L [id number] ####[facility] ([facility])[address] [place] [address] IMMATURE GRANULOCYTES (10*3/UL) IN BLOOD BY CALCULATION 0.01 10*3/uL Normal 0.00-0.20 [facility] Comment on above: Performed By: #### L [id number] ####[facility] ([facility])[address] [place] [address] IMMATURE GRANULOCYTES/100 LEUKOCYTES IN BLOOD BY AUTOMATED COUNT 0.4 % Normal 0.0-1.0 [facility] Comment on above: Performed By: #### L [id number] ####[facility] ([facility])[address] [place] [address] LYMPHOCYTES (10*3/UL) IN BLOOD BY CALCULATION 0.36 10*3/uL Low 1.20-4.00 [facility] Comment on above: Performed By: #### L [id number] ####[facility] ([facility])[address] [place] [address] LYMPHOCYTES/100 LEUKOCYTES IN BLOOD BY AUTOMATED COUNT 15.2 % Low 20.0-45.0 [facility] Comment on above: Performed By: #### L [id number] ####[facility] ([facility])[address] [place] [address] MONOCYTES (10*3/UL) IN BLOOD BY CALCUATION 0.18 10*3/uL Normal 0.10-1.00 [facility] Comment on above: Performed By: #### L [id number] ####[facility] ([facility])[address] [place] [address] MONOCYTES/100 LEUKOCYTES IN BLOOD BY AUTOMATED COUNT 7.6 % Normal 5.0-12.0 [facility] Comment on above: Performed By: #### L [id number] ####[facility] ([facility])[address] [place] [address] NEUTROPHILS (10*3/UL) IN BLOOD BY CALCULATION 1.8 10*3/uL Normal 1.6-7.6 [facility] Comment on above: Performed By: #### L [id number] ####[facility] ([facility])[address] [place] [address] NEUTROPHILS/100 LEUKOCYTES IN BLOOD BY AUTOMATED COUNT 74.7 % High 40.0-72.0 [facility] Comment on above: Performed By: #### L [id number] ####[facility] ([facility])[address] [place] [address] PHOSPHORUSon 09-23-2023 Magnesium [Mass/Vol] 2.4 mg/dL Low 2.5-5.0 [facility] Comment on above: Performed By: #### L [id number] ####[facility] ([facility])[address] [place] [address] POCT GLUCOSE METER UNSOLICIT ED RESULTSon 09-23-2023 Glucose [Mass/Vol] 188 mg/dL High 70-105 [facility] Comment on above: Order Comment: Waive d Testing in the ED is performed under the ED CLIA certificate #[id number]. Result Comment: [email or web address] Performed By: #### L [id number] ####[facility] ([facility])[address] [place] [address] Glucose [Mass/Vol] 158 mg/dL High 70-105 [facility] Comment on above: Order Comment: Waive d Testing in the ED is performed under the ED CLIA certificate #[id number]. Result Comment: [email or web address] Performed By: #### L [id number] ####[facility] ([facility])[address] [place] [address] Glucose [Mass/Vol] 252 mg/dL High 70-105 [facility] Comment on above: Order Comment: Waive d Testing in the ED is performed under the ED CLIA certificate #[id number]. Result Comment: [email or web address] Performed By: #### L [id number] ####[facility] ([facility])[address] [place] [address] Glucose [Mass/Vol] 120 mg/dL High 70-105 [facility] Comment on above: Order Comment: Waive d Testing in the ED is performed under the ED CLIA certificate #[id number]. Result Comment: [email or web address] Performed By: #### L [id number] ####[facility] ([facility])[address] [place] [address] VANCOMYCIN, PEAKon 3 VANCOMYCIN (UG/ML) IN SER/PLAS - PEAK 23.7 ug/mL Normal 20.0-50.0 [facility] Comment on above: Performed By: #### L [id number] ####[facility] ([facility])[address] [place] [address] 30on 09-22-2023 30 Normal [facility] 30 Normal [facility] 30 Normal [facility] 30 Normal [facility] ANTI-XA (HEPARIN LEVEL)on HEPARIN UNFRACTIONATED (U/ML) IN PPP BY CHROMOGENIC METHOD 0.21 IU/mL Low 0.3-0.7 [facility] Comment on above: Order Comment: Check anti-Xa level every 6 hours while on heparin infusion, or per protocol. Result Comment: Davidson roxaban and Apixaban will interfere with the anti Xa assay used to monitor UFH and LMWH. Performed By: #### L [id number] ####[facility] ([facility])[address] [place] [address] HEPARIN UNFRACTIONATED (U/ML) IN PPP BY CHROMOGENIC METHOD 0.25 IU/mL Low 0.3-0.7 [facility] Comment on above: Order Comment: Check anti-Xa level every 6 hours while on heparin infusion, or per protocol. Result Comment: Davidson roxaban and Apixaban will interfere with the anti Xa assay used to monitor UFH and LMWH. Performed By: #### L [id number] ####[facility] ([facility])[address] [place] [address] HEPARIN UNFRACTIONATED (U/ML) IN PPP BY CHROMOGENIC METHOD 0.22 IU/mL Low 0.3-0.7 [facility] Comment on above: Result Comment: Davidson roxaban and Apixaban will interfere with the anti Xa assay used to monitor UFH and LMWH. Performed By: #### L [id number] ####[facility] ([facility])[address] [facility] [address] HEPARIN UNFRACTIONATED (U/ML) IN PPP BY CHROMOGENIC METHOD 0.22 IU/mL Low 0.3-0.7 [facility] Comment on above: Order Comment: Check anti-Xa level every 6 hours while on heparin infusion, or per protocol. Result Comment: Masha roxaban and Apixaban will interfere with the anti Xa assay used to monitor UFH and LMWH. Performed By: #### L [id number] ####[facility] ([facility])[address] [place] [address] HEPARIN UNFRACTIONATED (U/ML) IN PPP BY CHROMOGENIC METHOD 0.18 IU/mL Low 0.3-0.7 [facility] Comment on above: Order Comment: Check anti-Xa level every 6 hours while on heparin infusion, or per protocol. Result Comment: Davidson roxaban and Apixaban will interfere with the anti Xa assay used to monitor UFH and LMWH. Performed By: #### L [id number] ####[facility] ([facility])[address] [facility] [address] BASIC METABOLIC PANELon 09-09 Anion gap [Moles/Vol] 8 mmol/L Normal 7-20 [facility] Comment on above: Performed By: #### L [id number] ####[facility] ([facility])[address] [place] [address] Calcium [Mass/Vol] 8.0 mg/dL Low 8.6-10.3 [facility] Comment on above: Performed By: #### L [id number] ####[facility] ([facility])[address] [place] [address] Chloride [Moles/Vol] 102 mmol/L Normal 98-107 [facility] Comment on above: Performed By: #### L [id number] ####[facility] ([facility])[address] [place] [address] CO2 [Moles/Vol] 26 mmol/L Normal 21-31 [facility] Comment on above: Performed By: #### L [id number] ####[facility] ([facility])[address] [place] [address] Creatinine [Mass/Vol] 0.41 mg/dL Low 0.70-1.30 [facility] Comment on above: Performed By: #### L [id number] ####[facility] ([facility])[address] [place] [address] GLOMERULAR FILTRATION RATE ML/MIN/1.73 SQ M.PREDICTED 112.2 mL/min/1.73m*2 Normal >60.0 [facility] Comment on above: Result Comment: The [facility]???s estimated glomerular filtration rate (eGFR) will no [...] of individuals. Performed By: #### L [id number] ####[facility] ([facility])[address] [place] [address] Glucose [Mass/Vol] 110 mg/dL High 70-100 [facility] Comment on above: Performed By: #### L [id number] ####[facility] ([facility])[address] [place] [address] Potassium [Moles/Vol] 3.7 mmol/L Normal 3.5-5.1 [facility] Comment on above: Performed By: #### L [id number] ####[facility] ([facility])[address] [place] [address] Sodium [Moles/Vol] 132 mmol/L Low 136-145 [facility] Comment on above: Performed By: #### L [id number] ####[facility] ([facility])[address] [place] [address] Urea nitrogen [Mass/Vol] 16 mg/dL Normal 7-25 [facility] Comment on above: Performed By: #### L [id number] ####[facility] ([facility])[address] [place] [address] UREA NITROGEN/CREATININE (MASS RATIO) IN SER/PLAS 39.0 Normal [facility] Comment on above: Performed By: #### L [id number] ####[facility] ([facility])[address] [place] [address] CBC WITH AUTO DIFFERENTIALon 09-22-2023 Basophils (Bld) [#/Vol] 0.00 10*3/uL Normal 0.00-0.20 [facility] Comment on above: Performed By: #### L [id number] ####[facility] ([facility])[address] [place] [address] Basophils/100 WBC (Bld) 0.0 % Normal 0.0-1.0 [facility] Comment on above: Performed By: #### L [id number] ####[facility] ([facility])[address] [place] [address] Eosinophils (Bld) [#/Vol] 0.03 10*3/uL Normal 0.00-0.50 [facility] Comment on above: Performed By: #### L [id number] ####[facility] ([facility])[address] [place] [address] Eosinophils/100 WBC (Bld) 0.7 % Normal 0.0-6.0 [facility] Comment on above: Performed By: #### L [id number] ####[facility] ([facility])[address] [place] [address] Erythrocyte distribution width (RBC) [Ratio] 17.6 % High 11.5-15.0 [facility] Comment on above: Performed By: #### L [id number] ####[facility] ([facility])[address] [place] [address] ERYTHROCYTE MEAN CORPUSCULAR HEMOGLOBIN CONCENTRATION (G/DL) BY AUTOMATED 32.2 g/dL Normal 32.0-35.0 [facility] Comment on above: Performed By: #### L [id number] ####[facility] [place] [address] Hematocrit (Bld) [Volume fraction] 27.6 % Low 39.0-55.0 [facility] Comment on above: Performed By: #### L [id number] ####[facility] ([facility])[address] [place] [address] Hemoglobin (Bld) [Mass/Vol] 8.9 g/dL Low 13.0-17.0 [facility] Comment on above: Performed By: #### L [id number] ####[facility] ([facility])[address] [place] [address] Immature granulocytes (Bld) [#/Vol] 0.02 10*3/uL Normal 0.00-0.20 [facility] Comment on above: Performed By: #### L [id number] ####[facility] ([facility])[address] [address] Immature granulocytes/100 WBC (Bld) 0.5 % Normal 0.0-1.0 [facility] Comment on above: Performed By: #### L [id number] ####[facility] [place] [address] Lymphocytes (Bld) [#/Vol] 0.45 10*3/uL Low 1.20-4.00 [facility] Comment on above: Performed By: #### L [id number] ####[facility] ([facility])[address] [facility] [address] Lymphocytes/100 WBC (Bld) 10.6 % Low 20.0-45.0 [facility] Comment on above: Performed By: #### L [id number] ####[facility] ([facility])[address] [place] [address] MCH (RBC) [Entitic mass] 27.5 pg Normal 27.0-33.0 [facility] Comment on above: Performed By: #### L [id number] ####[facility] [place] [address] MCV (RBC) [Entitic vol] 85.2 fL Normal 82.0-98.0 [facility] Comment on above: Performed By: #### L [id number] ####[facility] ([facility])[address] [place] [address] Monocytes (Bld) [#/Vol] 0.45 10*3/uL Normal 0.10-1.00 [facility] Comment on above: Performed By: #### L [id number] ####[facility] ([facility])[address] [place] [address] Monocytes/100 WBC (Bld) 10.6 % Normal 5.0-12.0 [facility] Comment on above: Performed By: #### L [id number] ####[facility] ([facility])[address] [place] [address] Neutrophils (Bld) [#/Vol] 3.28 10*3/uL Normal 1.60-7.60 [facility] Comment on above: Performed By: #### L [id number] ####[facility] [place] [address] Neutrophils/100 WBC (Bld) 77.6 % High 40.0-72.0 [facility] Comment on above: Performed By: #### L [id number] ####[facility] ([facility])[address] [place] [address] NRBC (PER 100 WBCS) BY AUTOMATED COUNT 0.0 % Normal 0 [facility] Comment on above: Performed By: #### L [id number] ####[facility] ([facility])[address] [place] [address] PLATELETS (10*3/UL) IN BLOOD AUTOMATED COUNT 109 10*3/uL Low 150-400 [facility] Comment on above: Performed By: #### L [id number] ####[facility] [place] [address] RBC (Bld) [#/Vol] 3.24 10*6/uL Low 4.20-5.70 [facility] Comment on above: Performed By: #### L [id number] ####[facility] ([facility])[address] [place] [address] WBC (Bld) [#/Vol] 4.23 10*3/uL Normal 4.00-10.60 [facility] Comment on above: Performed By: #### L [id number] ####[facility] ([facility])[address] [place] [address] HEMOGLOBIN AND HEMATOCRIT, B LOODon 09-22-2023 Hematocrit (Bld) [Volume fraction] 30.1 % Low 39.0-55.0 [facility] Comment on above: Performed By: #### L [id number] ####[facility] ([facility])[address] [place] [address] Hemoglobin (Bld) [Mass/Vol] 9.8 g/dL Low 13.0-17.0 [facility] Comment on above: Performed By: #### L [id number] ####[facility] ([facility])[address] [place] [address] MAGNESIUMon 09-22-2023 Magnesium [Mass/Vol] 1.7 mg/dL Low 1.9-2.7 [facility] Comment on above: Performed By: #### L [id number] ####[facility] ([facility])[address] [place] [address] PHOSPHORUSon 09-22-2023 Magnesium [Mass/Vol] 2.0 mg/dL Low 2.5-5.0 [facility] Comment on above: Performed By: #### L [id number] ####[facility] ([facility])[address] [place] [address] POCT GLUCOSE METER UNSOLICIT ED RESULTSon 09-22-2023 Glucose [Mass/Vol] 102 mg/dL Normal 70-105 [facility] Comment on above: Order Comment: Waive d Testing in the ED is performed under the ED CLIA certificate #[id number]. Result Comment: [email or web address] Performed By: #### L [id number] ####[facility] [facility] [address] Glucose [Mass/Vol] 212 mg/dL High 70-105 [facility] Comment on above: Order Comment: Waive d Testing in the ED is performed under the ED CLIA certificate #[id number]. Result Comment: [email or web address] Performed By: #### L [id number] ####[facility] ([facility])[address] [place] [address] Glucose [Mass/Vol] 177 mg/dL High 70-105 [facility] Comment on above: Order Comment: Waive d Testing in the ED is performed under the ED CLIA certificate #[id number]. Result Comment: [email or web address] Performed By: #### L [id number] ####[facility] [facility] [address] VANCOMYCIN, TROUGHon 023 VANCOMYCIN (UG/ML) IN SER/PLAS - TROUGH 6.1 ug/mL Normal 5.0-20.0 [facility] Comment on above: Order Comment: Les e collect the trough at least one hour before the 0800 dose due Performed By: #### L [id number] ####[facility] ([facility])[address] [place] [address] 30on 09-21-2023 30 Normal [facility] 30 Normal [facility] ANTI-XA (HEPARIN LEVEL)on HEPARIN UNFRACTIONATED (U/ML) IN PPP BY CHROMOGENIC METHOD 0.14 IU/mL Invalid Interpretation Code 0.3-0.7 [facility] Comment on above: Order Comment: Check anti-Xa level every 6 hours while on heparin infusion, or per protocol. Result Comment: Davidson roxaban and Apixaban will interfere with the anti Xa assay used to monitor UFH and LMWH. Performed By: #### L [id number] ####[facility] ([facility])[address] [place] [address] HEPARIN UNFRACTIONATED (U/ML) IN PPP BY CHROMOGENIC METHOD <0.10 Invalid Interpretation Code 0.3-0.7 [facility] Comment on above: Result Comment: Davidson roxaban and Apixaban will interfere with the anti Xa assay used to monitor UFH and LMWH. Performed By: #### L [id number] ####[facility] ([facility])[address] [place] [address] APTTon 09-21-2023 ACTIVATED PARTIAL THROMBOPLASTIN TIME IN PPP BY COAGULATION ASSAY 35.8 Seconds High 25.0-35.0 [facility] Comment on above: Order Comment: Basel ine aPTT before initiating heparin infusion. Result Comment: Clin ical significance of the APTT is questionable in the presence of heparin. Performed By: #### L [id number] ####[facility] ([facility])[address] [place] [address] BASIC METABOLIC PANELon 09-09 Anion gap [Moles/Vol] 12 mmol/L Normal 7-20 [facility] Comment on above: Performed By: #### L [id number] ####[facility] ([facility])[address] [place] [address] Calcium [Mass/Vol] 7.9 mg/dL Low 8.6-10.3 [facility] Comment on above: Performed By: #### L [id number] ####[facility] ([facility])[address] [place] [address] Chloride [Moles/Vol] 100 mmol/L Normal 98-107 [facility] Comment on above: Performed By: #### L [id number] ####[facility] ([facility])[address] [facility] [facility] [place] [address] CO2 [Moles/Vol] 23 mmol/L Normal 21-31 [facility] Comment on above: Performed By: #### L [id number] ####[facility] ([facility])[address] [place] [address] Creatinine [Mass/Vol] 0.61 mg/dL Low 0.70-1.30 [facility] Comment on above: Performed By: #### L [id number] ####[facility] ([facility])[address] [place] [address] GLOMERULAR FILTRATION RATE ML/MIN/1.73 SQ M.PREDICTED 99.5 mL/min/1.73m*2 Normal >60.0 [facility] Comment on above: Result Comment: [facility]???s estimated glomerular filtration rate (eGFR) will no [...] of individuals. Performed By: #### L [id number] ####[facility] ([facility])[address] [place] [address] Glucose [Mass/Vol] 246 mg/dL High 70-100 [facility] Comment on above: Performed By: #### L [id number] ####[facility] ([facility])[address] [place] [address] Potassium [Moles/Vol] 3.5 mmol/L Normal 3.5-5.1 [facility] Comment on above: Performed By: #### L [id number] ####[facility] ([facility])[address] [place] [address] Sodium [Moles/Vol] 131 mmol/L Low 136-145 [facility] Comment on above: Performed By: #### L [id number] ####[facility] ([facility])[address] [facility] [facility] [place] [address] Urea nitrogen [Mass/Vol] 15 mg/dL Normal 7-25 [facility] Comment on above: Performed By: #### L [id number] ####[facility] ([facility])[address] [place] [address] UREA NITROGEN/CREATININE (MASS RATIO) IN SER/PLAS 24.6 Normal [facility] Comment on above: Performed By: #### L [id number] ####[facility] ([facility])[address] [place] [address] Anion gap [Moles/Vol] 8 mmol/L Normal 7-20 [facility] Comment on above: Performed By: #### L [id number] ####[facility] ([facility])[address] [place] [address] Calcium [Mass/Vol] 8.5 mg/dL Low 8.6-10.3 [facility] Comment on above: Performed By: #### L [id number] ####[facility] ([facility])[address] [place] [address] Chloride [Moles/Vol] 101 mmol/L Normal 98-107 [facility] Comment on above: Performed By: #### L [id number] ####[facility] ([facility])[address] [place] [address] CO2 [Moles/Vol] 28 mmol/L Normal 21-31 [facility] [facility] Comment on above: Performed By: #### L [id number] ####[facility] ([facility])[address] [place] [address] Creatinine [Mass/Vol] 0.49 mg/dL Low 0.70-1.30 [facility] Comment on above: Performed By: #### L [id number] ####[facility] ([facility])[address] [place] [address] GLOMERULAR FILTRATION RATE ML/MIN/1.73 SQ M.PREDICTED 106.4 mL/min/1.73m*2 Normal >60.0 [facility] Comment on above: Result Comment: The [facility]???s estimated glomerular filtration rate (eGFR) will no [...] of individuals. Performed By: #### L [id number] ####[facility] ([facility])[address] [place] [address] Glucose [Mass/Vol] 113 mg/dL High 70-100 [facility] Comment on above: Performed By: #### L [id number] ####[facility] ([facility])[address] [place] [address] Potassium [Moles/Vol] 3.9 mmol/L Normal 3.5-5.1 [facility] Comment on above: Performed By: #### L [id number] ####[facility] ([facility])[address] [place] [address] Sodium [Moles/Vol] 133 mmol/L Low 136-145 [facility] Comment on above: Performed By: #### L [id number] ####[facility] ([facility])[address] [place] [address] Urea nitrogen [Mass/Vol] 13 mg/dL Normal 7-25 [facility] Comment on above: Performed By: #### L [id number] ####[facility] ([facility])[address] [place] [address] UREA NITROGEN/CREATININE (MASS RATIO) IN SER/PLAS 26.5 Normal [facility] Comment on above: Performed By: #### L [id number] ####[facility] ([facility])[address] [place] [address] CBC WITH AUTO DIFFERENTIALon 09-21-2023 Basophils (Bld) [#/Vol] 0.01 10*3/uL Normal 0.00-0.20 [facility] Comment on above: Performed By: #### L [id number] ####[facility] ([facility])[address] [place] [address] Basophils/100 WBC (Bld) 0.2 % Normal 0.0-1.0 [facility] Comment on above: Performed By: #### L [id number] ####[facility] ([facility]ER)[address] [place] [address] Eosinophils (Bld) [#/Vol] 0.01 10*3/uL Normal 0.00-0.50 [facility] Comment on above: Performed By: #### L [id number] ####[facility] ([facility])[address] [place] [address] Eosinophils/100 WBC (Bld) 0.2 % Normal 0.0-6.0 [facility] Comment on above: Performed By: #### L [id number] ####[facility] ([facility])[address] [place] [address] Erythrocyte distribution width (RBC) [Ratio] 18.0 % High 11.5-15.0 [facility] Comment on above: Performed By: #### L [id number] ####[facility] ([facility])[address] [place] [address] ERYTHROCYTE MEAN CORPUSCULAR HEMOGLOBIN CONCENTRATION (G/DL) BY AUTOMATED 31.8 g/dL Low 32.0-35.0 [facility] Comment on above: Performed By: #### L [id number] ####[facility] ([facility])[address] [place] [address] Hematocrit (Bld) [Volume fraction] 31.8 % Low 39.0-55.0 [facility] Comment on above: Performed By: #### L [id number] ####[facility] ([facility])[address] [place] [address] Hemoglobin (Bld) [Mass/Vol] 10.1 g/dL Low 13.0-17.0 [facility] Comment on above: Performed By: #### L [id number] ####[facility] ([facility])[address] [place] [address] Immature granulocytes (Bld) [#/Vol] 0.03 10*3/uL Normal 0.00-0.20 [facility] Comment on above: Performed By: #### L [id number] ####[facility] [place] [address] Immature granulocytes/100 WBC (Bld) 0.5 % Normal 0.0-1.0 [facility] Comment on above: Performed By: #### L [id number] ####[facility] [place] [address] Lymphocytes (Bld) [#/Vol] 0.43 10*3/uL Low 1.20-4.00 [facility] Comment on above: Performed By: #### L [id number] ####[facility] [place] [address] Lymphocytes/100 WBC (Bld) 7.4 % Low 20.0-45.0 [facility] Comment on above: Performed By: #### L [id number] ####[facility] ([facility])[address] [place] [address] MCH (RBC) [Entitic mass] 26.9 pg Low 27.0-33.0 [facility] Comment on above: Performed By: #### L [id number] ####[facility] ([facility])[address] [place] [address] MCV (RBC) [Entitic vol] 84.8 fL Normal 82.0-98.0 [facility] Comment on above: Performed By: #### L [id number] ####[facility] ([facility])[address] [place] [address] Monocytes (Bld) [#/Vol] 0.56 10*3/uL Normal 0.10-1.00 [facility] Comment on above: Performed By: #### L [id number] ####[facility] ([facility])[address] [place] [address] Monocytes/100 WBC (Bld) 9.6 % Normal 5.0-12.0 [facility] Comment on above: Performed By: #### L [id number] ####[facility] ([facility])[address] [address] Neutrophils (Bld) [#/Vol] 4.81 10*3/uL Normal 1.60-7.60 [facility] Comment on above: Performed By: #### L [id number] ####[facility] ([facility])[address] [address] Neutrophils/100 WBC (Bld) 82.1 % High 40.0-72.0 [facility] Comment on above: Performed By: #### L [id number] ####[facility] ([facility])[address] [address] NRBC (PER 100 WBCS) BY AUTOMATED COUNT 0.0 % Normal 0 [facility] Comment on above: Performed By: #### L [id number] ####[facility] ([facility])[address] [address] PLATELETS (10*3/UL) IN BLOOD AUTOMATED COUNT 122 10*3/uL Low 150-400 [facility] Comment on above: Performed By: #### L [id number] ####[facility] ([facility])[address] [address] RBC (Bld) [#/Vol] 3.75 10*6/uL Low 4.20-5.70 [facility] Comment on above: Performed By: #### L [id number] ####[facility] ([facility])[address] [address] WBC (Bld) [#/Vol] 5.85 10*3/uL Normal 4.00-10.60 [facility] Comment on above: Performed By: #### L [id number] ####[facility] ([facility])[address] [address] CONSULTon 09-21-2023 CONSULT Normal [facility] HEMOGLOBIN AND HEMATOCRIT, B LOODon 09-21-2023 Hematocrit (Bld) [Volume fraction] 30.8 % Low 39.0-55.0 [facility] Comment on above: Performed By: #### L [id number] ####[facility] ([facility])[address] [place] [address] Hemoglobin (Bld) [Mass/Vol] 10.2 g/dL Low 13.0-17.0 [facility] Comment on above: Performed By: #### L [id number] ####[facility] ([facility])[address] [place] [address] MAGNESIUMon 09-21-2023 Magnesium [Mass/Vol] 2.0 mg/dL Normal 1.9-2.7 [facility] Comment on above: Performed By: #### L [id number] ####[facility] ([facility])[address] [place] [address] Magnesium [Mass/Vol] 1.5 mg/dL Low 1.9-2.7 [facility] Comment on above: Performed By: #### L [id number] ####[facility] ([facility])[address] [place] [address] PHOSPHORUSon 09-21-2023 Magnesium [Mass/Vol] 3.0 mg/dL Normal 2.5-5.0 [facility] Comment on above: Performed By: #### L [id number] ####[facility] ([facility])[address] [place] [address] PLATELET COUNTon 09-21-2023 PLATELETS (10*3/UL) IN BLOOD AUTOMATED COUNT 144 10*3/uL Low 150-400 [facility] Comment on above: Performed By: #### L [id number] ####[facility] ([facility])[address] [place] [address] POCT GLUCOSE METER UNSOLICIT ED RESULTSon 09-21-2023 Glucose [Mass/Vol] 154 mg/dL High 70-105 [facility] Comment on above: Order Comment: Waive d Testing in the ED is performed under the ED CLIA certificate #[id number]. Result Comment: [email or web address] Performed By: #### L [id number] ####[facility] ([facility])[address] [place] [address] Glucose [Mass/Vol] 217 mg/dL High 70-105 [facility] Comment on above: Order Comment: Waive d Testing in the ED is performed under the ED CLIA certificate #[id number]. Result Comment: [email or web address] Performed By: #### L [id number] ####[facility] ([facility])[address] [place] [address] Glucose [Mass/Vol] 105 mg/dL Normal 70-105 [facility] Comment on above: Order Comment: Waive d Testing in the ED is performed under the ED CLIA certificate #[id number]. Result Comment: [email or web address] Performed By: #### L [id number] ####[facility] ([facility])[address] [place] [address] Glucose [Mass/Vol] 108 mg/dL High 70-105 [facility] Comment on above: Order Comment: Waive d Testing in the ED is performed under the ED CLIA certificate #[id number]. Result Comment: [email or web address] Performed By: #### L [id number] ####[facility] ([facility])[address] [facility] [place] [address] VANCOMYCIN, PEAKon 3 VANCOMYCIN (UG/ML) IN SER/PLAS - PEAK 12.1 ug/mL Low 20.0-50.0 [facility] Comment on above: Order Comment: Les meléndez collect the peak at least 1 hour after the infusion has been completed Performed By: #### L [id number] ####[facility] ([facility])[address] [facility] [place] [address] [id number] 09-20-2023 [id number] [facility] 30on 09-20-2023 30 The patient is Moder ately Stable - Low risk of patient condition declining or worsening The patient's goals for the shift include comfort, safety The clinical goals for the shift include comfort,safety [facility] ANESon 09-20-2023 ANES Normal [facility] BASIC METABOLIC PANELon 12- Anion gap [Moles/Vol] 9 mmol/L Normal 7-20 [facility] Comment on above: Performed By: #### L [id number] ####[facility] [place] [address] Calcium [Mass/Vol] 8.4 mg/dL Low 8.6-10.3 [facility] Comment on above: Performed By: #### L [id number] ####[facility] ([facility])[address] [place] [address] Chloride [Moles/Vol] 100 mmol/L Normal 98-107 [facility] Comment on above: Performed By: #### L [id number] ####[facility] ([facility])[address] [place] [address] CO2 [Moles/Vol] 27 mmol/L Normal 21-31 [facility] Comment on above: Performed By: #### L [id number] ####[facility] ([facility])[address] [place] [address] Creatinine [Mass/Vol] 0.51 mg/dL Low 0.70-1.30 [facility] Comment on above: Performed By: #### L [id number] ####[facility] [place] [address] GLOMERULAR FILTRATION RATE ML/MIN/1.73 SQ M.PREDICTED 105.1 mL/min/1.73m*2 Normal >60.0 [facility] Comment on above: Result Comment: The [facility]???s estimated glomerular filtration rate (eGFR) will no [...] of individuals. Performed By: #### L [id number] ####[facility] ([facility])[address] [place] [address] Glucose [Mass/Vol] 117 mg/dL High 70-100 [facility] Comment on above: Performed By: #### L [id number] ####[facility] ([facility])[address] [place] [address] Potassium [Moles/Vol] 3.3 mmol/L Low 3.5-5.1 [facility] Comment on above: Performed By: #### L [id number] ####[facility] ([facility])[address] [place] [address] Sodium [Moles/Vol] 133 mmol/L Low 136-145 [facility] Comment on above: Performed By: #### L [id number] ####[facility] ([facility])[address] [place] [address] Urea nitrogen [Mass/Vol] 14 mg/dL Normal 7-25 [facility] Comment on above: Performed By: #### L [id number] ####[facility] ([facility])[address] [place] [address] UREA NITROGEN/CREATININE (MASS RATIO) IN SER/PLAS 27.5 Normal [facility] Comment on above: Performed By: #### L [id number] ####[facility] ([facility])[address] [place] [address] Anion gap [Moles/Vol] 11 mmol/L Normal 7-20 [facility] Comment on above: Performed By: #### L [id number] ####[facility] ([facility])[address] [place] [address] Calcium [Mass/Vol] 9.2 mg/dL Normal 8.6-10.3 [facility] Comment on above: Performed By: #### L [id number] ####[facility] ([facility])[address] [place] [address] Chloride [Moles/Vol] 102 mmol/L Normal 98-107 [facility] Comment on above: Performed By: #### L [id number] ####[facility] [place] [address] CO2 [Moles/Vol] 25 mmol/L Normal 21-31 [facility] Comment on above: Performed By: #### L [id number] ####[facility] ([facility])[address] [place] [address] Creatinine [Mass/Vol] 0.53 mg/dL Low 0.70-1.30 [facility] Comment on above: Performed By: #### L [id number] ####[facility] ([facility])[address] [place] [address] GLOMERULAR FILTRATION RATE ML/MIN/1.73 SQ M.PREDICTED 103.9 mL/min/1.73m*2 Normal >60.0 [facility] Comment on above: Result Comment: [facility]???s estimated glomerular filtration rate (eGFR) will no [...] of individuals. Performed By: #### L [id number] ####[facility] [place] [address] Glucose [Mass/Vol] 93 mg/dL Normal 70-100 [facility] Comment on above: Performed By: #### L [id number] ####[facility] [place] [address] Potassium [Moles/Vol] 3.7 mmol/L Normal 3.5-5.1 [facility] Comment on above: Performed By: #### L [id number] ####[facility] [place] [address] Sodium [Moles/Vol] 134 mmol/L Low 136-145 [facility] Comment on above: Performed By: #### L [id number] ####[facility] ([facility])[address] [place] [address] Urea nitrogen [Mass/Vol] 18 mg/dL Normal 7-25 [facility] Comment on above: Performed By: #### L [id number] ####[facility] [place] [address] UREA NITROGEN/CREATININE (MASS RATIO) IN SER/PLAS 34.0 Normal [facility] Comment on above: Performed By: #### L [id number] ####[facility] [place] [address] CBCon 09-20-2023 Erythrocyte distribution width (RBC) [Ratio] 18.0 % High 11.5-15.0 [facility] Comment on above: Performed By: #### L [id number] ####[facility] [place] [address] ERYTHROCYTE MEAN CORPUSCULAR HEMOGLOBIN CONCENTRATION (G/DL) BY AUTOMATED 31.9 g/dL Low 32.0-35.0 [facility] Comment on above: Performed By: #### L [id number] ####[facility] [place] [address] Hematocrit (Bld) [Volume fraction] 33.5 % Low 39.0-55.0 [facility] Comment on above: Performed By: #### L [id number] ####[facility] ([facility])[address] [place] [address] Hemoglobin (Bld) [Mass/Vol] 10.7 g/dL Low 13.0-17.0 [facility] Comment on above: Performed By: #### L [id number] ####[facility] ([facility])[address] [place] [address] MCH (RBC) [Entitic mass] 27.1 pg Normal 27.0-33.0 [facility] Comment on above: Performed By: #### L [id number] ####[facility] ([facility])[address] [place] [address] MCV (RBC) [Entitic vol] 84.8 fL Normal 82.0-98.0 [facility] Comment on above: Performed By: #### L [id number] ####[facility] [place] [address] PLATELETS (10*3/UL) IN BLOOD AUTOMATED COUNT 142 10*3/uL Low 150-400 [facility] Comment on above: Performed By: #### L [id number] ####[facility] ([facility])[address] [place] [address] RBC (Bld) [#/Vol] 3.95 10*6/uL Low 4.20-5.70 [facility] Comment on above: Performed By: #### L [id number] ####[facility] ([facility])[address] [place] [address] WBC (Bld) [#/Vol] 8.35 10*3/uL Normal 4.00-10.60 [facility] Comment on above: Performed By: #### L [id number] ####[facility] [place] [address] CBC WITH AUTO DIFFERENTIALon 09-20-2023 Basophils (Bld) [#/Vol] 0.00 10*3/uL Normal 0.00-0.20 [facility] Comment on above: Performed By: #### L [id number] ####[facility] ([facility])[address] [place] [address] Basophils/100 WBC (Bld) 0.0 % Normal 0.0-1.0 [facility] Comment on above: Performed By: #### L [id number] ####[facility] ([facility])[address] [place] [address] Eosinophils (Bld) [#/Vol] 0.00 10*3/uL Normal 0.00-0.50 [facility] Comment on above: Performed By: #### L [id number] ####[facility] [place] [address] Eosinophils/100 WBC (Bld) 0.0 % Normal 0.0-6.0 [facility] Comment on above: Performed By: #### L [id number] ####[facility] ([facility])[address] [place] [address] Erythrocyte distribution width (RBC) [Ratio] 17.4 % High 11.5-15.0 [facility] Comment on above: Performed By: #### L [id number] ####[facility] ([facility])[address] [place] [address] ERYTHROCYTE MEAN CORPUSCULAR HEMOGLOBIN CONCENTRATION (G/DL) BY AUTOMATED 32.1 g/dL Normal 32.0-35.0 [facility] Comment on above: Performed By: #### L [id number] ####[facility] ([facility])[address] [place] [address] Hematocrit (Bld) [Volume fraction] 36.5 % Low 39.0-55.0 [facility] Comment on above: Performed By: #### L [id number] ####[facility] ([facility])[address] [place] [address] Hemoglobin (Bld) [Mass/Vol] 11.7 g/dL Low 13.0-17.0 [facility] Comment on above: Performed By: #### L [id number] ####[facility] [place] [address] Immature granulocytes (Bld) [#/Vol] 0.03 10*3/uL Normal 0.00-0.20 [facility] Comment on above: Performed By: #### L [id number] ####[facility] ([facility])[address] [place] [address] Immature granulocytes/100 WBC (Bld) 0.4 % Normal 0.0-1.0 [facility] Comment on above: Performed By: #### L [id number] ####[facility] ([facility])[address] [place] [address] Lymphocytes (Bld) [#/Vol] 0.37 10*3/uL Low 1.20-4.00 [facility] Comment on above: Performed By: #### L [id number] ####[facility] ([facility])[address] [place] [address] Lymphocytes/100 WBC (Bld) 4.9 % Low 20.0-45.0 [facility] Comment on above: Performed By: #### L [id number] ####[facility] ([facility])[address] [place] [address] MCH (RBC) [Entitic mass] 27.4 pg Normal 27.0-33.0 [facility] Comment on above: Performed By: #### L [id number] ####[facility] ([facility])[address] [place] [address] MCV (RBC) [Entitic vol] 85.5 fL Normal 82.0-98.0 [facility] Comment on above: Performed By: #### L [id number] ####[facility] ([facility])[address] [place] [address] Monocytes (Bld) [#/Vol] 0.48 10*3/uL Normal 0.10-1.00 [facility] Comment on above: Performed By: #### L [id number] ####[facility] ([facility])[address] [place] [address] Monocytes/100 WBC (Bld) 6.3 % Normal 5.0-12.0 [facility] Comment on above: Performed By: #### L [id number] ####[facility] ([facility])[address] [place] [address] Neutrophils (Bld) [#/Vol] 6.73 10*3/uL Normal 1.60-7.60 [facility] Comment on above: Performed By: #### L [id number] ####[facility] ([facility])[address] [address] Neutrophils/100 WBC (Bld) 88.4 % High 40.0-72.0 [facility] Comment on above: Performed By: #### L [id number] ####[facility] ([facility])[address] [place] [address] NRBC (PER 100 WBCS) BY AUTOMATED COUNT 0.0 % Normal 0 [facility] Comment on above: Performed By: #### L [id number] ####[facility] ([facility])[address] [address] PLATELETS (10*3/UL) IN BLOOD AUTOMATED COUNT 122 10*3/uL Low 150-400 [facility] Comment on above: Performed By: #### L [id number] ####[facility] ([facility])[address] [place] [address] RBC (Bld) [#/Vol] 4.27 10*6/uL Normal 4.20-5.70 [facility] Comment on above: Performed By: #### L [id number] ####[facility] ([facility])[address] [address] WBC (Bld) [#/Vol] 7.61 10*3/uL Normal 4.00-10.60 [facility] Comment on above: Performed By: #### L [id number] ####[facility] ([facility])[address] [address] CONSULTon 09-20-2023 CONSULT Normal [facility] CONSULT Normal [facility] DEVICE CULTUREon 09-20-2023 Bacteria identified Cx Nom (Unsp spec) No growth at 3 days Normal [facility] Comment on above: Order Comment: Pre-o p diagnosis:Peripheral artery disease (CMS/HCC) [I73.9] Performed By: #### D EVICE CULTURE ####[facility] ([facility])[address] [place] [address] Bacteria identified Cx Nom (Unsp spec) No growth at 3 days Normal [facility] Comment on above: Order Comment: Pre-o p diagnosis:Peripheral artery disease (CMS/HCC) [I73.9] Performed By: #### D MIRIAN CULTURE ####[facility] ([facility])[address] [place] [address] MAGNESIUMon 09-20-2023 Magnesium [Mass/Vol] 1.5 mg/dL Low 1.9-2.7 [facility] Comment on above: Performed By: #### L [id number] ####[facility] ([facility])[address] [place] [address] Magnesium [Mass/Vol] 1.9 mg/dL Normal 1.9-2.7 [facility] Comment on above: Performed By: #### L [id number] ####[facility] ([facility])[address] [place] [address] NURSNOTEon 09-20-2023 NURSNOTE Normal [facility] OPNOTEon 09-20-2023 OPNOTE Normal [facility] PHOSPHORUSon 09-20-2023 Magnesium [Mass/Vol] 2.9 mg/dL Normal 2.5-5.0 [facility] Comment on above: Performed By: #### L [id number] ####[facility] ([facility])[address] [place] [address] Magnesium [Mass/Vol] 3.0 mg/dL Normal 2.5-5.0 [facility] Comment on above: Performed By: #### L [id number] ####[facility] ([facility])[address] [place] [address] POCT ACTIVATED CLOTTING TIME UNSOLICITED RESULTSon 09-20-2023 POC ACTIVATED CLOTTING TIME 154 sec High 82-152 [facility] Comment on above: Performed By: #### L [id number] ####[facility] [facility] [place] [address] POC ACTIVATED CLOTTING TIME 199 sec High 82-152 [facility] Comment on above: Performed By: #### L [id number] ####[facility] ([facility])[address] [place] [address] POC ACTIVATED CLOTTING TIME 222 sec High 82-152 [facility] Comment on above: Performed By: #### L [id number] ####[facility] ([facility])[address] [place] [address] POC ACTIVATED CLOTTING TIME 154 sec High 82-152 [facility] Comment on above: Performed By: #### L [id number] ####[facility] ([facility])[address] [place] [address] POCT GLUCOSE METER UNSOLICIT ED RESULTSon 09-20-2023 Glucose [Mass/Vol] 156 mg/dL High 70-105 [facility] Comment on above: Order Comment: Waive d Testing in the ED is performed under the ED CLIA certificate #[id number]. Result Comment: [email or web address] Performed By: #### L [id number] ####[facility] ([facility])[address] [place] [address] Glucose [Mass/Vol] 105 mg/dL Normal 70-105 [facility] Comment on above: Order Comment: Waive d Testing in the ED is performed under the ED CLIA certificate #[id number]. Result Comment: [email or web address] Performed By: #### L [id number] ####[facility] ([facility])[address] [place] [address] POCT PERFUSION PANEL UNSOLIC ITED RESULTSon 09-20-2023 CO2 [Moles/Vol] 28.0 mmol/L Normal 21.0-29.0 [facility] Comment on above: Performed By: #### L [id number] ####[facility] ([facility])[address] [place] [address] Glucose [Mass/Vol] 152 mg/dL High 70-105 [facility] Comment on above: Performed By: #### L [id number] ####[facility] ([facility])[address] [place] [address] HCO3 (Bld) [Moles/Vol] 27.1 mmol/L Normal 23.0-28.[address] [facility] Comment on above: Performed By: #### L [id number] ####[facility] ([facility] [address] Hematocrit (Bld) [Volume fraction] 32 % Low 38-51 [facility] Comment on above: Performed By: #### L [id number] ####[facility] ([facility])[address] [address] Hemoglobin (Bld) [Mass/Vol] 10.9 g/dL Low 12.0-17.0 [facility] Comment on above: Performed By: #### L [id number] ####[facility] ([facility] [address] POCT BASE EXCESS 3.0 mmol/L Normal -2.0-3.0 [facility] Comment on above: Performed By: #### L [id number] ####[facility] ([facility])[address] [address] POCT IONIZED CALCIUM 1.27 mmol/L Normal 1.12-1.32 [facility] Comment on above: Performed By: #### L [id number] ####[facility] ([facility] [address] POCT PCO2 40.5 mmHg Low 41.0-51.0 [facility] Comment on above: Performed By: #### L [id number] ####[facility] ([facility] [address] POCT PH 7.43 High 7.31-7.41 [facility] Comment on above: Performed By: #### L [id number] ####[facility] ([facility])[address] [address] POCT PO2 280 mmHg High 80-105 [facility] Comment on above: Performed By: #### L [id number] ####[facility] ([facility] [address] POCT SO2 100 % High 95-98 [facility] Comment on above: Performed By: #### L [id number] ####[facility] ([facility])[address] [place] [address] Potassium [Moles/Vol] 3.0 mmol/L Low 3.5-4.9 [facility] Comment on above: Performed By: #### L [id number] ####[facility] ([facility])[address] [place] [address] Sodium [Moles/Vol] 135 mmol/L Low 138.0-146.0 [facility] Comment on above: Performed By: #### L [id number] ####[facility] ([facility])[address] [place] [address] CO2 [Moles/Vol] 29.0 mmol/L Normal 21.0-29.0 [facility] Comment on above: Performed By: #### L [id number] ####[facility] ([facility])[address] [place] [address] Glucose [Mass/Vol] 122 mg/dL High 70-105 [facility] Comment on above: Performed By: #### L [id number] ####[facility] ([facility])[address] [place] [address] HCO3 (Bld) [Moles/Vol] 27.9 mmol/L Normal 23.0-28.0 [facility] Comment on above: Performed By: #### L [id number] ####[facility] ([facility])[address] [place] [address] Hematocrit (Bld) [Volume fraction] 34 % Low 38-51 [facility] Comment on above: Performed By: #### L [id number] ####[facility] ([facility])[address] [place] [address] Hemoglobin (Bld) [Mass/Vol] 11.6 g/dL Low 12.0-17.0 [facility] Comment on above: Performed By: #### L [id number] ####[facility] ([facility])[address] [place] [address] POCT BASE EXCESS 4.0 mmol/L High -2.0-3.0 [facility] Comment on above: Performed By: #### L [id number] ####[facility] ([facility])[address] [place] [address] POCT IONIZED CALCIUM 1.11 mmol/L Low 1.12-1.32 [facility] Comment on above: Performed By: #### L [id number] ####[facility] ([facility])[address] [place] [address] POCT PCO2 38.6 mmHg Low 41.0-51.0 [facility] Comment on above: Performed By: #### L [id number] ####[facility] ([facility])[address] [place] [address] POCT PH 7.47 High 7.31-7.41 [facility] Comment on above: Performed By: #### L [id number] ####[facility] ([facility] [place] [address] POCT PO2 284 mmHg High 80-105 [facility] Comment on above: Performed By: #### L [id number] ####[facility] ([facility] [place] [address] POCT SO2 100 % High 95-98 [facility] Comment on above: Performed By: #### L [id number] ####[facility] ([facility] [place] [address] Potassium [Moles/Vol] 3.1 mmol/L Low 3.5-4.9 [facility] Comment on above: Performed By: #### L [id number] ####[facility] ([facility])[address] [place] [address] Sodium [Moles/Vol] 137 mmol/L Low 138.0-146.0 [facility] Comment on above: Performed By: #### L [id number] ####[facility] ([facility])[address] [place] [address] PROTIME-INRon 09-20-2023 INR IN PPP BY COAGULATION ASSAY 1.17 High 0.90-1.10 [facility] Comment on above: Result Comment: [facility] P RECOMMENDED INR FOR WARFARIN THERAPY CONDITION INRPROPHYLAXIS OF VENOUS THROMBOSIS 2-3(HIGH-RISK SURGERY)TREATMENT OF VENOUS THROMBOSIS 2-3TREATMENT OF PULMONARY EMBOLISM 2-3PREVENTION OF SYSTEMIC EMBOLISM: 2-3 ACUTE MYOCARDIAL INFARCTION TISSUE HEART VALVES VALVULAR HEART DISEASE ATRIAL FIBRILLATION RECURRENT SYSTEMIC EMBOLISMMECHANICAL HEART VALVE 2.5-3.5 FROM: ORAL ANTICOAGULANTS. MECHANISM OF ACTION, CLINICAL EFFECTIVENESS, AND OPTIMAL THERAPEUTIC RANGE. CHEST 1995;108:231S-246S. Performed By: #### L [id number] ####[facility] ([facility])[address] [place] [address] PROTHROMBIN TIME (PT) IN PPP BY COAGULATION ASSAY 14.9 Seconds High 12.3-14.8 [facility] Comment on above: Performed By: #### L [id number] ####[facility] ([facility])[address] [place] [address] TISSUE CULTUREon 09-20-2023 GRAM STAIN RESULT Normal [facility] Comment on above: Order Comment: Pre-o p diagnosis:Peripheral artery disease (CMS/HCC) [I73.9]Rare Growth Skin Rita Result Comment: Many Polymorphonuclear leukocytesNo organisms seen Performed By: #### L [id number] ####[facility] ([facility])[address] [place] [address] 30on 09-19-2023 30 Normal [facility] 30 Normal [facility] ANESon 09-19-2023 ANES Normal [facility] APTTon 09-19-2023 ACTIVATED PARTIAL THROMBOPLASTIN TIME IN PPP BY COAGULATION ASSAY 35.0 Seconds Normal 25.0-35.0 [facility] Comment on above: Result Comment: Clin ical significance of the APTT is questionable in the presence of heparin. Performed By: #### L [id number] ####[facility] ([facility])[address] [place] [address] BASIC METABOLIC PANELon 09-09 Anion gap [Moles/Vol] 7 mmol/L Normal 7-20 [facility] Comment on above: Performed By: #### L [id number] ####[facility] ([facility])[address] [place] [address] Calcium [Mass/Vol] 8.8 mg/dL Normal 8.6-10.3 [facility] Comment on above: Performed By: #### L [id number] ####[facility] ([facility])[address] [place] [address] Chloride [Moles/Vol] 103 mmol/L Normal 98-107 [facility] Comment on above: Performed By: #### L [id number] ####[facility] ([facility])[address] [place] [address] CO2 [Moles/Vol] 28 mmol/L Normal 21-31 [facility] Comment on above: Performed By: #### L [id number] ####[facility] ([facility])[address] [place] [address] Creatinine [Mass/Vol] 0.46 mg/dL Low 0.70-1.30 [facility] Comment on above: Performed By: #### L [id number] ####[facility] ([facility])[address] [place] [address] GLOMERULAR FILTRATION RATE ML/MIN/1.73 SQ M.PREDICTED 108.4 mL/min/1.73m*2 Normal >60.0 [facility] Comment on above: Result Comment: [facility]???s estimated glomerular filtration rate (eGFR) will no [...] of individuals. Performed By: #### L [id number] ####[facility] ([facility])[address] [place] [address] Glucose [Mass/Vol] 166 mg/dL High 70-100 [facility] Comment on above: Performed By: #### L [id number] ####[facility] ([facility])[address] [place] [address] Potassium [Moles/Vol] 3.8 mmol/L Normal 3.5-5.1 [facility] Comment on above: Performed By: #### L [id number] ####[facility] ([facility])[address] [place] [address] Sodium [Moles/Vol] 134 mmol/L Low 136-145 [facility] Comment on above: Performed By: #### L [id number] ####[facility] ([facility])[address] [place] [address] Urea nitrogen [Mass/Vol] 18 mg/dL Normal 7-25 [facility] Comment on above: Performed By: #### L [id number] ####[facility] ([facility])[address] [place] [address] UREA NITROGEN/CREATININE (MASS RATIO) IN SER/PLAS 39.1 Normal [facility] Comment on above: Performed By: #### L [id number] ####[facility] ([facility] [place] [address] CBC WITH AUTO DIFFERENTIALon 2023 Basophils (Bld) [#/Vol] 0.00 10*3/uL Normal 0.00-0.20 [facility] Comment on above: Performed By: #### L [id number] ####[facility] ([facility])[address] [place] [address] Basophils/100 WBC (Bld) 0.0 % Normal 0.0-1.0 [facility] Comment on above: Performed By: #### L [id number] ####[facility] ([facility])[address] [place] [address] Eosinophils (Bld) [#/Vol] 0.00 10*3/uL Normal 0.00-0.50 [facility] Comment on above: Performed By: #### L [id number] ####[facility] ([facility])[address] [place] [address] Eosinophils/100 WBC (Bld) 0.0 % Normal 0.0-6.0 [facility] Comment on above: Performed By: #### L [id number] ####[facility] ([facility])[address] [place] [address] Erythrocyte distribution width (RBC) [Ratio] 18.8 % High 11.5-15.0 [facility] Comment on above: Performed By: #### L [id number] ####[facility] ([facility])[address] [place] [address] ERYTHROCYTE MEAN CORPUSCULAR HEMOGLOBIN CONCENTRATION (G/DL) BY AUTOMATED 32.5 g/dL Normal 32.0-35.0 [facility] Comment on above: Performed By: #### L [id number] ####[facility] ([facility])[address] [place] [address] Hematocrit (Bld) [Volume fraction] 24.9 % Low 39.0-55.0 [facility] Comment on above: Performed By: #### L [id number] ####[facility] ([facility])[address] [place] [address] Hemoglobin (Bld) [Mass/Vol] 8.1 g/dL Low 13.0-17.0 [facility] Comment on above: Performed By: #### L [id number] ####[facility] ([facility] [place] [address] Immature granulocytes (Bld) [#/Vol] 0.02 10*3/uL Normal 0.00-0.20 [facility] Comment on above: Performed By: #### L [id number] ####[facility] ([facility])[address] [place] [address] Immature granulocytes/100 WBC (Bld) 0.4 % Normal 0.0-1.0 [facility] Comment on above: Performed By: #### L [id number] ####[facility] ([facility])[address] [place] [address] Lymphocytes (Bld) [#/Vol] 0.14 10*3/uL Low 1.20-4.00 [facility] Comment on above: Performed By: #### L [id number] ####[facility] ([facility])[address] [place] [address] Lymphocytes/100 WBC (Bld) 2.7 % Low 20.0-45.0 [facility] Comment on above: Performed By: #### L [id number] ####[facility] ([facility] [place] [address] MCH (RBC) [Entitic mass] 27.3 pg Normal 27.0-33.0 [facility] Comment on above: Performed By: #### L [id number] ####[facility] ([facility] [place] [address] MCV (RBC) [Entitic vol] 83.8 fL Normal 82.0-98.0 [facility] Comment on above: Performed By: #### L [id number] ####[facility] ([facility])[address] [place] [address] Monocytes (Bld) [#/Vol] 0.09 10*3/uL Low 0.10-1.00 [facility] Comment on above: Performed By: #### L [id number] ####[facility] ([facility] [address] Monocytes/100 WBC (Bld) 1.8 % Low 5.0-12.0 [facility] Comment on above: Performed By: #### L [id number] ####[facility] ([facility])[address] [address] Neutrophils (Bld) [#/Vol] 4.87 10*3/uL Normal 1.60-7.60 [facility] Comment on above: Performed By: #### L [id number] ####[facility] ([facility])[address] [address] Neutrophils/100 WBC (Bld) 95.1 % High 40.0-72.0 [facility] Comment on above: Performed By: #### L [id number] ####[facility] ([facility])[address] [address] NRBC (PER 100 WBCS) BY AUTOMATED COUNT 0.0 % Normal 0 [facility] Comment on above: Performed By: #### L [id number] ####[facility] ([facility])[address] [address] PLATELETS (10*3/UL) IN BLOOD AUTOMATED COUNT 105 10*3/uL Low 150-400 [facility] Comment on above: Performed By: #### L [id number] ####[facility] [address] RBC (Bld) [#/Vol] 2.97 10*6/uL Low 4.20-5.70 [facility] Comment on above: Performed By: #### L [id number] ####[facility] [address] WBC (Bld) [#/Vol] 5.12 10*3/uL Normal 4.00-10.60 [facility] Comment on above: Performed By: #### L [id number] ####[facility] ([facility])[address] [place] [address] MAGNESIUMon 09-19-2023 Magnesium [Mass/Vol] 1.7 mg/dL Low 1.9-2.7 [facility] Comment on above: Performed By: #### L [id number] ####[facility] ([facility])[address] [place] [address] MRSA/MSSA DNA NASALon 2022 MRSA DNA Negative Normal Negative [facility] Comment on above: Order Comment: Testi ng [...] preclude nasal colonization. Performed By: #### L [id number] ####[facility] ([facility])[address] [place] [address] MSSA DNA Negative Normal Negative [facility] Comment on above: Order Comment: Testi ng [...] preclude nasal colonization. Performed By: #### L [id number] ####[facility] ([facility])[address] [place] [address] PHOSPHORUSon 09-19-2023 Magnesium [Mass/Vol] 3.1 mg/dL Normal 2.5-5.0 [facility] Comment on above: Performed By: #### L [id number] ####[facility] ([facility])[address] [place] [address] POCT GLUCOSE METER UNSOLICIT ED RESULTSon 09-19-2023 Glucose [Mass/Vol] 244 mg/dL High 70-105 [facility] Comment on above: Order Comment: Waive d Testing in the ED is performed under the ED CLIA certificate #[id number]. Result Comment: [email or web address] Performed By: #### L [id number] ####[facility] ([facility])[address] [place] [address] Glucose [Mass/Vol] 140 mg/dL High 70-105 [facility] Comment on above: Order Comment: Waive d Testing in the ED is performed under the ED CLIA certificate #[id number]. Result Comment: [email or web address] Performed By: #### L [id number] ####[facility] ([facility])[address] [place] [address] Glucose [Mass/Vol] 192 mg/dL High 70-105 [facility] Comment on above: Order Comment: Waive d Testing in the ED is performed under the ED CLIA certificate #[id number]. Result Comment: [email or web address] Performed By: #### L [id number] ####[facility] ([facility])[address] [place] [address] Glucose [Mass/Vol] 163 mg/dL High 70-105 [facility] Comment on above: Order Comment: Waive d Testing in the ED is performed under the ED CLIA certificate #[id number]. Result Comment: [email or web address] Performed By: #### L [id number] ####[facility] ([facility])[address] [place] [address] PROTIME-INRon 09-19-2023 INR IN PPP BY COAGULATION ASSAY 1.27 High 0.90-1.10 [facility] Comment on above: Result Comment: ACCC P [...] CHEST 1995;108:231S-246S. Performed By: #### L [id number] ####[facility] ([facility])[address] [place] [address] PROTHROMBIN TIME (PT) IN PPP BY COAGULATION ASSAY 16.0 Seconds High 12.3-14.8 [facility] Comment on above: Performed By: #### L [id number] ####[facility] ([facility])[address] [place] [address] TYPE AND SCREENon 09-19-2023 AB SCREEN Negative Normal [facility] Comment on above: Performed By: #### L [id number] ####[facility], ABO group Nom (Bld) O Normal [facility] Comment on above: Performed By: #### L [id number] ####[facility], RH TYPE IN BLOOD Positive Normal [facility] Comment on above: Performed By: #### L [id number] ####[facility], BASIC METABOLIC PANELon 09-09 Anion gap [Moles/Vol] 8 mmol/L Normal 7-20 [facility] Comment on above: Performed By: #### L [id number] ####[facility] ([facility])[address] [place] [address] Calcium [Mass/Vol] 8.4 mg/dL Low 8.6-10.3 [facility] Comment on above: Performed By: #### L [id number] ####[facility] ([facility])[address] [place] [address] Chloride [Moles/Vol] 99 mmol/L Normal 98-107 [facility] Comment on above: Performed By: #### L [id number] ####[facility] ([facility])[address] [place] [address] CO2 [Moles/Vol] 28 mmol/L Normal 21-31 [facility] Comment on above: Performed By: #### L [id number] ####[facility] ([facility])[address] [place] [address] Creatinine [Mass/Vol] 0.52 mg/dL Low 0.70-1.30 [facility] Comment on above: Performed By: #### L [id number] ####[facility] ([facility])[address] [place] [address] GLOMERULAR FILTRATION RATE ML/MIN/1.73 SQ M.PREDICTED 104.5 mL/min/1.73m*2 Normal >60.0 [facility] Comment on above: Result Comment: [facility]???s estimated glomerular filtration rate (eGFR) will no [...] of individuals. Performed By: #### L [id number] ####[facility] ([facility])[address] [place] [address] Glucose [Mass/Vol] 193 mg/dL High 70-100 [facility] Comment on above: Performed By: #### L [id number] ####[facility] ([facility])[address] [place] [address] Potassium [Moles/Vol] 3.7 mmol/L Normal 3.5-5.1 [facility] Comment on above: Performed By: #### L [id number] ####[facility] ([facility])[address] [place] [address] Sodium [Moles/Vol] 131 mmol/L Low 136-145 [facility] Comment on above: Performed By: #### L [id number] ####[facility] [place] [address] Urea nitrogen [Mass/Vol] 19 mg/dL Normal 7-25 [facility] Comment on above: Performed By: #### L [id number] ####[facility] ([facility])[address] [place] [address] UREA NITROGEN/CREATININE (MASS RATIO) IN SER/PLAS 36.5 Normal [facility] Comment on above: Performed By: #### L [id number] ####[facility] ([facility])[address] [place] [address] CBC WITH AUTO DIFFERENTIALon 09-18-2023 Basophils (Bld) [#/Vol] 0.00 10*3/uL Normal 0.00-0.20 [facility] Comment on above: Performed By: #### L [id number] ####[facility] [place] [address] Basophils/100 WBC (Bld) 0.0 % Normal 0.0-1.0 [facility] Comment on above: Performed By: #### L [id number] ####[facility] ([facility])[address] [place] [address] Eosinophils (Bld) [#/Vol] 0.00 10*3/uL Normal 0.00-0.50 [facility] Comment on above: Performed By: #### L [id number] ####[facility] [place] [address] Eosinophils/100 WBC (Bld) 0.0 % Normal 0.0-6.0 [facility] Comment on above: Performed By: #### L [id number] ####[facility] ([facility] [place] [address] Erythrocyte distribution width (RBC) [Ratio] 19.1 % High 11.5-15.0 [facility] Comment on above: Performed By: #### L [id number] ####[facility] ([facility])[address] [address] ERYTHROCYTE MEAN CORPUSCULAR HEMOGLOBIN CONCENTRATION (G/DL) BY AUTOMATED 31.9 g/dL Low 32.0-35.0 [facility] Comment on above: Performed By: #### L [id number] ####[facility] ([facility])[address] [place] [address] Hematocrit (Bld) [Volume fraction] 25.4 % Low 39.0-55.0 [facility] Comment on above: Performed By: #### L [id number] ####[facility] ([facility])[address] [place] [address] Hemoglobin (Bld) [Mass/Vol] 8.1 g/dL Low 13.0-17.0 [facility] Comment on above: Performed By: #### L [id number] ####[facility] ([facility])[address] [place] [address] Immature granulocytes (Bld) [#/Vol] 0.03 10*3/uL Normal 0.00-0.20 [facility] Comment on above: Performed By: #### L [id number] ####[facility] ([facility])[address], [place] [address] Immature granulocytes/100 WBC (Bld) 0.3 % Normal 0.0-1.0 [facility] Comment on above: Performed By: #### L [id number] ####[facility] ([facility])[address], [place] [address] Lymphocytes (Bld) [#/Vol] 0.22 10*3/uL Low 1.20-4.00 [facility] Comment on above: Performed By: #### L [id number] ####[facility] (BEAKER)[address] [place] [address] Lymphocytes/100 WBC (Bld) 2.1 % Low 20.0-45.0 [facility] Comment on above: Performed By: #### L [id number] ####[facility] [place] [address] MCH (RBC) [Entitic mass] 26.8 pg Low 27.0-33.0 [facility] Comment on above: Performed By: #### L [id number] ####[facility] ([facility])[address] [place] [address] MCV (RBC) [Entitic vol] 84.1 fL Normal 82.0-98.0 [facility] Comment on above: Performed By: #### L [id number] ####[facility] ([facility])[address] [place] [address] Monocytes (Bld) [#/Vol] 0.12 10*3/uL Normal 0.10-1.00 [facility] Comment on above: Performed By: #### L [id number] ####[facility] ([facility])[address] [place] [address] Monocytes/100 WBC (Bld) 1.2 % Low 5.0-12.0 [facility] Comment on above: Performed By: #### L [id number] ####[facility] [place] [address] Neutrophils (Bld) [#/Vol] 9.88 10*3/uL High 1.60-7.60 [facility] Comment on above: Performed By: #### L [id number] ####[facility] ([facility] [place] [address] Neutrophils/100 WBC (Bld) 96.4 % High 40.0-72.0 [facility] Comment on above: Performed By: #### L [id number] ####[facility] (BEAKER)[address] [place] [address] NRBC (PER 100 WBCS) BY AUTOMATED COUNT 0.0 % Normal 0 [facility] Comment on above: Performed By: #### L [id number] ####[facility] ([facility])[address] [address] PLATELETS (10*3/UL) IN BLOOD AUTOMATED COUNT 125 10*3/uL Low 150-400 [facility] Comment on above: Performed By: #### L [id number] ####[facility] ([facility])[address] [place] [address] RBC (Bld) [#/Vol] 3.02 10*6/uL Low 4.20-5.70 [facility] Comment on above: Performed By: #### L [id number] ####[facility] ([facility])[address] [place] [address] WBC (Bld) [#/Vol] 10.25 10*3/uL Normal 4.00-10.60 [facility] Comment on above: Performed By: #### L [id number] ####[facility] ([facility])[address] [place] [address] CTA AORTA AND BILATERAL ILIO FEMORAL RUNOFF W AND/OR WO IV CONTRASTon 09-18-2023 CTA AORTA AND BILATERAL ILIOFEMORAL RUNOFF W AND/OR WO IV CONTRAST Normal [facility] CTA CHEST W AND/OR WO IV CON TRASTon 09-18-2023 CTA CHEST W AND/OR WO IV CONTRAST Normal [facility] EDNURSon 09-18-2023 EDNURS Normal [facility] EDPROVon 09-18-2023 EDPROV Invalid Interpretation Code [facility] HPon 09-18-2023 HP Normal [facility] LACTIC ACID WITH 4 HOUR REFL EXon 09-18-2023 LACTATE (MMOL/L) IN SER/PLAS 1.6 mmol/L Normal 0.5-2.2 [facility] Comment on above: Performed By: #### L [id number] ####[facility] ([facility])[address] [place] [address] MAGNESIUMon 09-18-2023 Magnesium [Mass/Vol] 1.6 mg/dL Low 1.9-2.7 [facility] Comment on above: Performed By: #### L [id number] ####[facility] ([facility])[address] [place] [address] PHOSPHORUSon 09-18-2023 Magnesium [Mass/Vol] 3.1 mg/dL Normal 2.5-5.0 [facility] Comment on above: Performed By: #### L [id number] ####[facility] ([facility])[address] [place] [address] POCT GLUCOSE METER UNSOLICIT ED RESULTSon 09-18-2023 Glucose [Mass/Vol] 228 mg/dL High 70-105 [facility] Comment on above: Order Comment: Waive d Testing in the ED is performed under the ED CLIA certificate #[id number]. Result Comment: [email or web address] Performed By: #### L [id number] ####[facility] ([facility])[address] [place] [address] Follow-Upon 08-31-2023 Follow-Up Normal [facility] 36on 08-12-2023 36 Normal [facility] Telephoneon 08-12-2023 Telephone [facility] Physician Referralon 023 Physician Referral [id number]#[id number] [facility] Follow-Upon 06-20-2023 Follow-Up [facility] Follow-Upon 05-16-2023 Follow-Up [facility] Consent for Treatmenton 04-11 Consent for Treatment [id number]#1.00CD:[address] [facility] Heart and Vascular Office/Cl inic Noteon 05-09-2023 Heart and Vascular Office/Clinic Note Normal [facility] Comment on above: Result Comment: Elec tronically Signed By: Vickey WISE, Erwin Evans\.br\Date and Time Signed: 05/09/23 09:55 EDT Reminderson 05-05-2023 Reminders [facility] Consent for Anesthesiaon Consent for Anesthesia [id number]#1.00CD:[address] [facility] IntraOperative Documentson 0 04-19-2023 IntraOperative Documents [id number]#1.00CD:[address] [facility] IntraOperative Documentson 0 04-15-2023 IntraOperative Documents [id number]#1.00CD:[address] [facility] Operative Reporton Operative Report [facility] Comment on above: Result Comment: Elec tronically Signed By: Vickey WISE, Erwin Evans\.br\Date and Time Signed: 04/14/23 12:35 EDT Progress Note-Physicianon Progress Note-Physician [facility] Comment on above: Result Comment: Elec tronically Signed By: MD Horner Ahmad F\.br\Date and Time Signed: 04/14/23 19:33 EDT Progress Note-Physician [facility] Comment on above: Result Comment: Elec tronically Signed By: MD Horner Ahmad F\.br\Date and Time Signed: 04/14/23 19:28 EDT Consent for Anesthesiaon Consent for Anesthesia [id number]#1.00CD:12 7 [facility] Discharge Instructionson Discharge Instructions [id number]#1.00CD:12 7 [facility] Main OR Intraoperative Recor don 04-13-2023 Main OR Intraoperative Record Normal [facility] Capillary Glucose POCon Glucose [Mass/Vol] 97 mg/dL Normal 55-[address] [facility] Comment on above: Result Comment: Sayra feldman MeterNo Coverage Given Performed By: #### 2 [id number] ####[facility] [address] [place] [address] Consent for Procedure/Surger yon 04-11-2023 Consent for Procedure/Surgery [id number]#1.00CD:[address] [facility] Consent for Treatmenton Consent for Treatment [id number]#1.00CD:[address] [facility] Discharge Instructionson Discharge Instructions Normal [facility] Comment on above: Result Comment: Elec tronically Signed By: Rakesh GUARDADO, Karissa Hernandez\.br\Date and Time Signed: 04/11/23 15:05 EDT H&P Updateon 04-11-2023 H&P Update [id number]#1.00CD:[address] [facility] Main OR PACU I Recordon Main OR PACU I Record Normal [facility] Main OR Preoperative Recordo n 04-11-2023 Main OR Preoperative Record Normal [facility] Monitor Recordon 04-11-2023 Monitor Record [id number]#1.00CD:[address] [facility] PT & PTTon 04-11-2023 aPTT Coag (PPP) [Time] 38.1 second(s) High 25.1-36.[address] [facility] Comment on above: Result Comment: Para meter [...] the same coagulation reagent and instrumentation as [facility]. Currently there are no coagulation studies available worldwide for children to 14 days, and no normal ranges. Heparin therapeutic range (represented by Anti-Factor Xa activity of 0.2 - 0.4 U/mL) corresponds to PTT of 56.6 - 109.0 sec. Performed By: #### 1 [id number] ####[facility] [address] [place] [address] INR Coag (PPP) [Relative time] 1.2 {INR} Invalid Interpretation Code [facility] Comment on above: Result Comment: INR results are specifically intended to assess patients stabilized on long-term Anticoagulation therapy suggested INR?s ?Less Intensive Anticoagulation? 2.0 ? 3.0Conventional Range 3.0 ? 4.5 Performed By: #### 1 [id number] ####[address] [place] [address] PT Coag (PPP) [Time] 13.3 second(s) High 9.4-12.[address] [facility] Comment on above: Result Comment: 15 d [...] the same coagulation reagent and instrumentation as [facility]. Currently there are no coagulation studies available worldwide for children to 14 days, and no normal ranges. Performed By: #### 1 [id number] ####[facility] [address] [place] [address] Patient Education - Texton 0 04-11-2023 Patient Education - Text Normal [facility] BMPon 04-08-2023 Creatinine [Mass/Vol] 0.6 mg/dL Normal 0.5-1.3 [facility] Comment on above: Performed By: #### 1 [id number], 5807989, 1156404, 0219676, 3933319, 70528667 ####[facility] [address] [place] [address] Urea nitrogen [Mass/Vol] 27 mg/dL High 5-[address] [facility] Comment on above: Performed By: #### 1 [id number], 2918763, 2979985, 3925731, 4956679, 29357427 ####[facility] [address] [place] [address] Urea nitrogen/Creatinine [Mass ratio] 45 No Units High 10-[address] [facility] Comment on above: Performed By: #### 1 [id number], 2694416, 2572713, 3764749, 7631900, 03270222 ####[facility] [address] [place] [address] Anion gap [Moles/Vol] 9 mmol/L Normal 6-16 [facility] Comment on above: Performed By: #### 1 2531388, 8754063, 5807172, 8968099, 7192339, 39298160 ####[facility] [address] [place] [address] Calcium [Mass/Vol] 8.5 mg/dL Low 8.9-11.[address] [facility] Comment on above: Performed By: #### 1 8210467, 3294694, 2009020, 0949176, 3089577, 35867369 ####[facility] [address] [place] [address] Chloride [Moles/Vol] 99 mmol/L Low 101-111 [facility] Comment on above: Performed By: #### 1 1255511, 9467934, 4101111, 8395254, 2916375, 90512404 ####[facility] [address] [place] [address] CO2 [Moles/Vol] 28 mmol/L Normal 21-[address] [facility] Comment on above: Performed By: #### 1 9912880, 8226597, 4939612, 6505411, 0646563, 18875530 ####[facility] [address] [place] [address] Glucose [Mass/Vol] 163 mg/dL Normal 55-[address] [facility] Comment on above: Result Comment: If t his glucose result represents a fasting glucose, interpretation should refer to the following reference range: 55-99 mg/dL Performed By: #### 1 6839738, 2934742, 1672012, 7234858, 0351231, 97886846 ####[facility] [address] [place] [address] Potassium [Moles/Vol] 3.7 mmol/L Normal 3.5-5.3 [facility] Comment on above: Performed By: #### 1 9929146, 1993433, 4414879, 5994908, 9452677, 57241381 ####[facility] [address] [place] [address] Sodium [Moles/Vol] 132 mmol/L Low 135-[address] [facility] Comment on above: Performed By: #### 1 4164381, 2251456, 6064566, 1612361, 6246490, 52604758 ####[facility] [address] [place] [address] CBC w/Indiceson 04-08-2023 Erythrocyte distribution width (RBC) [Ratio] 20.5 % High 10.9-14.[address] [facility] Comment on above: Performed By: #### 1 0474438, 1177759, 8800416, 9452678, 4316610, 60566677 ####[facility] [address] [place] [address] Hematocrit (Bld) [Volume fraction] 31.4 % Low 37.7-49.[address] [facility] Comment on above: Performed By: #### 1 5427563, 4890582, 6782538, 0246719, 8349092, 88538662 ####[facility] [address] [place] [address] Hemoglobin (Bld) [Mass/Vol] 10.2 g/dL Low 13.5-17.[address] [facility] Comment on above: Performed By: #### 1 4929800, 2323647, 3432166, 2273515, 6454999, 96575619 ####[facility] [address] [place] [address] MCH (RBC) [Entitic mass] 30.3 pg Normal 27.0-34.[address] [facility] Comment on above: Performed By: #### 1 6460582, 1637017, 8820376, 7572549, 3203713, 63259085 ####[address] [place] [address] MCHC (RBC) [Mass/Vol] 32.6 g/dL Normal 31.4-36.0 [facility] Comment on above: Performed By: #### 1 6152786, 5386767, 9507447, 8889103, 8280615, 83611210 ####[address] [place] [address] MCV (RBC) [Entitic vol] 92.9 fL Normal 80.0-100.[address] [facility] Comment on above: Performed By: #### 1 6033977, 6431463, 0310572, 3470514, 9307573, 47944990 ####[address] [place] [address] Platelet mean volume (Bld) [Entitic vol] 9.2 fL Normal 6.4-10.[address] [facility] Comment on above: Performed By: #### 1 0317957, 3024442, 5709927, 2669048, 9771200, 24306155 ####[address] [place] [address] Platelets (Bld) [#/Vol] 156.0 E9/L Normal 150.0-500.[address] [facility] Comment on above: Performed By: #### 1 9331278, 1346888, 4765637, 1354646, 6718132, 18805540 ####[address] [place] [address] RBC (Bld) [#/Vol] 3.4 E12/L Low 4.3-5.[address] [facility] Comment on above: Performed By: #### 1 9374971, 4313105, 3292897, 5300705, 1755548, 50125383 ####[facility] [address] [place] [address] WBC corrected for nucl RBC Auto (Bld) [#/Vol] 3.6 E9/L Low 4.0-11.[address] [facility] Comment on above: Performed By: #### 1 5016116, 2648202, 5050070, 0989117, 9512832, 58917202 ####[facility] [address] [place] [address] CHEMISTRYOrdered By: SYSTEM SYSTEM on 04-08-2023 Anion gap [Moles/Vol] 9 mmol/L Normal 6 - 16 mEq/L [facility] Remisol Calcium [Mass/Vol] 8.5 mg/dL Low 8.9 - 11. 1 mg/dL [facility] Chloride [Moles/Vol] 99 mmol/L Low 101 - 1 11 mmol/L [facility] CO2 [Moles/Vol] 28 mmol/L Normal 21 - 31 mmol/L [facility] Creatinine [Mass/Vol] 0.6 mg/dL Normal 0.5 - 1.3 mg/dL [facility] Remisol GFR/1.73 sq M.predicted among non-blacks MDRD (S/P/Bld) [Vol rate/Area] 100 mL/min/1.73 m2 Normal >=59mL/min/ 1.73 m2 [facility] Chem S Glucose [Mass/Vol] 163 mg/dL Normal 55 - 199 mg/dL [facility] Magnesium [Mass/Vol] 1.9 mg/dL Normal 1.3 - 2 .4 mg/dL [facility] Phosphate [Mass/Vol] 2.7 mg/dL Normal 1.9 - 4 .6 mg/dL [facility] Potassium [Moles/Vol] 3.7 mmol/L Normal 3.5 - 5.3 mmol/L [facility] Sodium [Moles/Vol] 132 mmol/L Low 135 - 145 mmol/L [facility]isol Urea nitrogen [Mass/Vol] 27 mg/dL High 5 - 21 mg/dL [facility] Remisol Urea nitrogen/Creatinine [Mass ratio] 45 mg/mg High 10 - 20 [facility]isol COAGULATIONOrdered By: Yang Ayala on 04-08-2023 aPTT Coag (PPP) [Time] 40.6 s High 25.1 - 36.5 second(s) [facility] Auto Coag INR Coag (PPP) [Relative time] 1.7 {INR} Invalid Interpretation Code [facility] Auto Coag PT Coag (PPP) [Time] 19.0 s High 9.4 - 1 2.5 second(s) [facility] Auto Coag Consent for Treatmenton 03-12 Consent for Treatment [id number]#1.00CD:[address] [facility] Formson 04-08-2023 Forms [id number]#1.00CD:[address] [facility] HEMATOLOGYOrdered By: Fabi Massey on 04-08-2023 Erythrocyte distribution width (RBC) [Ratio] 20.5 % High 10.9 - 14.2 % [facility] Hematocrit (Bld) [Volume fraction] 31.4 % Low 37.7 - 49.0 % [facility] Hemoglobin (Bld) [Mass/Vol] 10.2 g/dL Low 13.5 - 17.5 gm/dL [facility] MCH (RBC) [Entitic mass] 30.3 pg Normal 27.0 - 34.0 pg [facility] MCHC (RBC) [Mass/Vol] 32.6 g/dL Normal 31.4 - 36.0 gm/dL [facility]eAuto[facility] MCV (RBC) [Entitic vol] 92.9 fL Normal 80.0 - 100.0 fL [facility] Platelet mean volume (Bld) [Entitic vol] 9.2 fL Normal 6.4 - 10.8 fL [facility] HemeAutoSS Platelets (Bld) [#/Vol] 156.0 E9/L Normal 150.0 - 500.0 E9/L [facility] HemeAutoSS RBC (Bld) [#/Vol] 3.4 E12/L Low 4.3 - 5.9 E12/L [facility] HemeAutoSS WBC corrected for nucl RBC Auto (Bld) [#/Vol] 3.6 E9/L Low 4.0 - 11.0 E9/L [facility] HemeAutoSS Magnesiumon 04-08-2023 Magnesium [Mass/Vol] 1.9 mg/dL Normal 1.3-2.4 [facility] Comment on above: Performed By: #### 1 [id number], 2846985, 9097263, 5880045, 0659294, 09711256 ####[facility] [address] [place] [address] PT & PTTon 04-08-2023 aPTT Coag (PPP) [Time] 40.6 second(s) High 25.1-36.[address] [facility] Comment on above: Result Comment: Para meter [...] the same coagulation reagent and instrumentation as [facility]. Currently there are no coagulation studies available worldwide for children to 14 days, and no normal ranges. Heparin therapeutic range (represented by Anti-Factor Xa activity of 0.2 - 0.4 U/mL) corresponds to PTT of 56.6 - 109.0 sec. Performed By: #### 1 3058486, 8107724, 2624792, 7416921, 6210327, 60483195 ####[facility] [address] [place] [address] INR Coag (PPP) [Relative time] 1.7 {INR} Invalid Interpretation Code [facility] Comment on above: Result Comment: INR results are specifically intended to assess patients stabilized on long-term Anticoagulation therapy suggested INR?s ?Less Intensive Anticoagulation? 2.0 ? 3.0Conventional Range 3.0 ? 4.5 Performed By: #### 1 2999520, 4369605, 3113511, 7166595, 3513656, 44724947 ####[facility] [address] [place] [address] PT Coag (PPP) [Time] 19.0 second(s) High 9.4-12.[address] [facility] Comment on above: Result Comment: 15 d [...] the same coagulation reagent and instrumentation as [facility]. Currently there are no coagulation studies available worldwide for children to 14 days, and no normal ranges. Performed By: #### 1 2856662, 9085651, 8247656, 2335879, 6927456, 78432869 ####[facility] [address] [place] [address] Phosphoruson 04-08-2023 Phosphate [Mass/Vol] 2.7 mg/dL Normal 1.9-4.6 [facility] Comment on above: Performed By: #### 1 6749867, 3071998, 3769620, 2582652, 9360255, 19081771 ####[facility] [address] [place] [address] Physician Orderon 04-08-2023 Physician Order [id number]#1.00CD:[address] [facility] eGFRon 04-08-2023 GFR/1.73 sq M.predicted among non-blacks MDRD (S/P/Bld) [Vol rate/Area] 100 mL/min/1.73 m2 Normal >=[address] [facility] Comment on above: Order Comment: Order added by Discern Expert. Result Comment: Undercoat Sprayer alen kidney disease could be indicated at eGFR's of less than 60 mL/min/1.73m2. Kidney failure is indicated at less than 15 mL/min/1.73m2. Performed By: #### 1 0809737, 4470549, 2396266, 0350147, 2911612, 39846395 ####[facility] [address] [place] [address] Formson 04-07-2023 Forms [id number]#1.00CD:[address] [facility] Orders Officeon 04-07-2023 Orders Office [id number]#1.00CD:[address] [facility] Path. Reviewon 04-05-2023 Path Review Anemia with anisocyt osis, microcytes and mild polychromasia. Clinical correlation and iron studies are recommended to determine etiology as clinically indicated. Invalid Interpretation Code [facility] Comment on above: Order Comment: Order Added by Discern Expert. Performed By: #### 1 4446120, 6326391, 23579448, 7220414, 9879191, 02284185 ####[facility] [address] [place] [address] Auto Diffon 04-04-2023 Basophils/100 WBC (Bld) 0.9 % Normal 0.0-2.[address] [facility] Comment on above: Order Comment: Order Added by Discern Expert. Performed By: #### 1 1885828, 7556669, 82022399, 1441315, 4083821, 29038959 ####[facility] [address] [place] [address] Basophils/Leukocytes Auto (Bld) [Pure # fraction] 0.0 E9/L Normal 0.0-0.[address] [facility] Comment on above: Order Comment: Order Added by Cristiano Expert. Performed By: #### 1 9616262, 6468488, 11819671, 1177485, 2215085, 34444354 ####[facility] [address] [place] [address] Eosinophils/100 WBC (Bld) 1.6 % Normal 0.0-8.[address] [facility] Comment on above: Order Comment: Order Added by Discern Expert. Performed By: #### 1 6035395, 8739714, 19525170, 5212354, 1578870, 98303359 ####[address] [place] [address] Eosinophils/Leukocytes Auto (Bld) [Pure # fraction] 0.1 E9/L Normal 0.0-0.[address] [facility] Comment on above: Order Comment: Order Added by Cristiano Expert. Performed By: #### 1 8554918, 8347127, 77292016, 4740833, 8121198, 40956086 ####[address] [place] [address] Lymphocytes/100 WBC (Bld) 11.7 % Low 14.0-50.[address] [facility] Comment on above: Order Comment: Order Added by Cristiano Expert. Performed By: #### 1 6640989, 1314892, 53361910, 2324608, 0264283, 22839661 ####[address] [place] [address] Lymphocytes/Leukocytes Auto (Bld) [Pure # fraction] 0.4 E9/L Low 1.0-4.[address] [facility] Comment on above: Order Comment: Order Added by Cristiano Expert. Performed By: #### 1 2908708, 5221019, 88881318, 3674004, 9112090, 91236003 ####[address] [place] [address] Monocytes/100 WBC (Bld) 13.1 % Normal 4.0-14.[address] [facility] Comment on above: Order Comment: Order Added by Discern Expert. Performed By: #### 1 1183364, 3979694, 13004124, 3202638, 4136274, 71807227 ####[address] [place] [address] Monocytes/Leukocytes Auto (Bld) [Pure # fraction] 0.5 E9/L Normal 0.2-1.[address] [facility] Comment on above: Order Comment: Order Added by Discern Expert. Performed By: #### 1 9464988, 2285843, 57416825, 1248480, 8426429, 58773888 ####[address] [place] [address] Neutrophils/100 WBC (Bld) 72.7 % Normal 36.0-75.[address] [facility] [facility] Comment on above: Order Comment: Order Added by Discern Expert. Performed By: #### 1 1987829, 8204612, 17941108, 1100245, 0321331, 06941663 ####[address] [address] Neutrophils/Leukocytes Auto (Bld) [Pure # fraction] 2.7 E9/L Normal 2.0-7.[address] [facility] Comment on above: Order Comment: Order Added by Discern Expert. Performed By: #### 1 7606352, 7586057, 56952036, 9891861, 9780625, 19391960 ####[address] [place] [address] BMPon 04-04-2023 Anion gap [Moles/Vol] 10 mmol/L Normal 6-16 [facility] Comment on above: Performed By: #### 1 0112076, 0650817, 62847728, 5994788, 6688987, 90501324 ####[address] [place] [address] Calcium [Mass/Vol] 9.2 mg/dL Normal 8.9-11.[address] [facility] Comment on above: Performed By: #### 1 9489665, 5923487, 28920367, 8951371, 7180199, 37330989 ####[facility] [address] [place] [address] Chloride [Moles/Vol] 102 mmol/L Normal 101-111 [facility] Comment on above: Performed By: #### 1 6124621, 4328188, 12471488, 1065180, 0439901, 61321048 ####[facility] [address]N[place] [place] [address] CO2 [Moles/Vol] 28 mmol/L Normal 21-[address] [facility] Comment on above: Performed By: #### 1 4989228, 1267183, 43421894, 8001825, 3028132, 09325831 ####[facility] [address] [facility] [place] [place] [address] Creatinine [Mass/Vol] 0.5 mg/dL Normal 0.5-1.3 [facility] Comment on above: Performed By: #### 1 6783446, 8940996, 60340372, 5666257, 8913631, 19343914 ####[facility] [address] [place] [address] Glucose [Mass/Vol] 171 mg/dL Normal 55-[address] [facility] Comment on above: Result Comment: If t his glucose result represents a fasting glucose, interpretation should refer to the following reference range: 55-99 mg/dL Performed By: #### 1 5204872, 8732418, 71588303, 6920546, 0893511, 93734199 ####[facility] [address] [facility] [place] [address] Potassium [Moles/Vol] 3.8 mmol/L Normal 3.5-5.3 [facility] Comment on above: Performed By: #### 1 4462699, 9902802, 70896040, 6769992, 5199198, 24559432 ####[facility] [address] [place] [address] Sodium [Moles/Vol] 136 mmol/L Normal 135-[address] [facility] Comment on above: Performed By: #### 1 4620743, 0969899, 38443950, 9501682, 8417265, 03802409 ####[facility] [address] [place] [address] Urea nitrogen [Mass/Vol] 34 mg/dL High 5-[address] [facility] Comment on above: Performed By: #### 1 9500872, 1753524, 00453121, 6666604, 3246311, 54206258 ####[facility] [address] [place] [address] Urea nitrogen/Creatinine [Mass ratio] 68 No Units High 10-[address] [facility] Comment on above: Performed By: #### 1 2461631, 0566908, 07021867, 0429675, 8992870, 69244001 ####[facility] [address] [place] [address] CBC w/ Auto Diffon Erythrocyte distribution width (RBC) [Ratio] 22.1 % High 10.9-14.[address] [facility] Comment on above: Performed By: #### 1 8793909, 1009729, 05375713, 5324029, 6206356, 80119789 ####[facility] [address] [place] [address] Hematocrit (Bld) [Volume fraction] 31.2 % Low 37.7-49.[address] [facility] Comment on above: Performed By: #### 1 1242511, 4574898, 22807188, 1378424, 8697527, 05680208 ####[facility] [address] [place] [address] Hemoglobin (Bld) [Mass/Vol] 10.1 g/dL Low 13.5-17.[address] [facility] Comment on above: Performed By: #### 1 9680729, 1603340, 81816755, 0193119, 0444745, 06264872 ####[facility] [address] [place] [address] MCH (RBC) [Entitic mass] 30.3 pg Normal 27.0-34.[address] [facility] Comment on above: Performed By: #### 1 4566326, 7683714, 32101759, 0169513, 1866128, 71884752 ####[address] MCHC (RBC) [Mass/Vol] 32.4 g/dL Normal 31.4-36.0 [facility] Comment on above: Performed By: #### 1 1565093, 4538519, 25757439, 1117607, 6355816, 71731229 ####[address] MCV (RBC) [Entitic vol] 93.6 fL Normal 80.0-100.[address] [facility] Comment on above: Performed By: #### 1 7121019, 4443564, 19947969, 0938302, 2677086, 29443496 ####[address] [address] Platelet mean volume (Bld) [Entitic vol] 8.5 fL Normal 6.4-10.[address] [facility] Comment on above: Performed By: #### 1 2718340, 8096888, 20157118, 2014863, 0849353, 58470016 ####[address] [address] Platelets (Bld) [#/Vol] 170.0 E9/L Normal 150.0-500.[address] [facility] Comment on above: Performed By: #### 1 9939499, 6079578, 31211453, 0940580, 9603219, 64298107 ####[address] [address] RBC (Bld) [#/Vol] 3.3 E12/L Low 4.3-5.[address] [facility] Comment on above: Performed By: #### 1 9792426, 5781980, 33421500, 2200709, 1707313, 03479400 ####[address] [address] WBC corrected for nucl RBC Auto (Bld) [#/Vol] 3.7 E9/L Low 4.0-11.[address] [facility] Comment on above: Performed By: #### 1 0883984, 6921696, 97309289, 0766538, 7763142, 20323903 ####[facility] [address] [place] [address] CHEMISTRYOrdered By: SYSTEM SYSTEM on 04-04-2023 Anion [...] 106 mL/min/1.73 m2 Normal >=59mL/min/ 1.73 m2 [facility] Chem S Glucose [Mass/Vol] [...] for Treatmenton 03-11 Consent for Treatment [id number]#1.00CD:[address] [facility] Consent for Treatment [id number]#1.00CD:[address] [facility] HEMATOLOGYOrdered By: Damian Peterson on 04-04-2023 Anisocytosis Ql (Bld) Present (6/26/23 12:24 PM) Normal [facility] Erythrocyte distribution width (RBC) [Ratio] 22.1 % High 10.9 - 14.2 % [facility] Hematocrit (Bld) [Volume fraction] 31.2 % Low 37.7 - 49.0 % [facility] Hemoglobin (Bld) [Mass/Vol] 10.1 g/dL Low 13.5 - 17.5 gm/dL [facility] Hypochromia Auto Ql (Bld) Present (04/04/23 12:24 PM) Normal [facility] MCH (RBC) [Entitic mass] 30.3 pg Normal 27.0 - 34.0 pg [facility] MCHC (RBC) [Mass/Vol] 32.4 g/dL Normal 31.4 - 36.0 gm/dL [facility] MCV (RBC) [Entitic vol] 93.6 fL Normal 80.0 - 100.0 fL [facility] Morphology Jah (Bld) [Interp] See Morphology (04/04/23 12:24 PM) Normal [facility] Platelet mean volume (Bld) [Entitic vol] 8.5 fL Normal 6.4 - 10.8 fL [facility] Platelets (Bld) [#/Vol] 170.0 E9/L Normal 150.0 - 500.0 E9/L [facility] Polychromasia LM Ql (Bld) Present (04/04/23 12:24 PM) Normal [facility] RBC (Bld) [#/Vol] 3.3 E12/L Low 4.3 - 5.9 E12/L [facility] Rouleaux LM Ql (Bld) Present (04/04/23 12:24 PM) Normal [facility] Schistocytes LM Ql (Bld) Present (04/04/23 12:24 PM) Normal [facility] Spherocytes LM Ql (Bld) Present (04/04/23 12:24 PM) Normal [facility] WBC corrected for nucl RBC Auto [...] 04-04-2023 Heart and Vascular Office/Clinic Note Normal [facility] Comment on above: Result Comment: Elec tronically Signed By: Vickey WISE, Erwin FOtilia\.br\Date and Time Signed: 04/04/23 11:48 EDT Morphon 04-04-2023 Anisocytosis Ql (Bld) Present Normal [facility] Comment on above: Order Comment: Order Added by Discern Expert. Performed By: #### 1 0200312, 3201197, 34336306, 3707606, 0193140, 91176430 ####[facility] [address] [facility] [place] [address] Hypochromia Auto Ql (Bld) Present Normal [facility] Comment on above: Order Comment: Order Added by Discern Expert. Performed By: #### 1 9815897, 9583297, 43970499, 7956481, 0119726, 78752871 ####[facility] [address] [facility] [place] [place] [address] Morphology Jah (Bld) [Interp] See Morphology Normal [facility] Comment on above: Order Comment: Order Added by Discern Expert. Performed By: #### 1 6760491, 1034643, 07223488, 6321131, 3511928, 30230899 ####[facility] [address] [facility] [place] [address] Polychromasia LM Ql (Bld) Present Normal [facility] Comment on above: Order Comment: Order Added by Discern Expert. Performed By: #### 1 4937892, 4695947, 73888980, 2458574, 8702226, 98574404 ####[facility] [address] [facility] [place] [place] [address] Rouleaux LM Ql (Bld) Present Normal [facility] Comment on above: Order Comment: Order Added by Discern Expert. Performed By: #### 1 7772153, 7421545, 36347344, 5621946, 8477822, 02526613 ####[facility] [address] [facility] [place] [place] [address] Schistocytes LM Ql (Bld) Present Normal [facility] Comment on above: Order Comment: Order Added by Discern Expert. Performed By: #### 1 8239669, 8280743, 07444471, 8745802, 7654039, 73760946 ####[facility] [address] [facility] [place] [place] [address] Spherocytes LM Ql (Bld) Present Normal [facility] Comment on above: Order Comment: Order Added by Discern Expert. Performed By: #### 1 2894313, 6761355, 98450599, 0324191, 6930483, 45519626 ####[facility] [address] [facility] [place] [address] Outside Progress Noteon 06-2 Outside Progress Note [id number]#1.00CD:[address] [facility] eGFRon 04-04-2023 GFR/1.73 sq M.predicted among non-blacks MDRD (S/P/Bld) [Vol rate/Area] 106 mL/min/1.73 m2 Normal >=[address] [facility] Comment on above: Order Comment: Order added by Discern Expert. Result Comment: Undercoat Sprayer alen kidney disease could be indicated at eGFR's of less than 60 mL/min/1.73m2. Kidney failure is indicated at less than 15 mL/min/1.73m2. Performed By: #### 1 9806661, 3236422, 82296785, 0079133, 0675391, 13981880 ####[facility] [address] [place] [address] Coding Queryon 03-17-2023 Coding Query Normal [facility] Consent for Treatmenton Consent for Treatment [id number]#1.00CD:[address] [facility] Heart and Vascular Office/Cl inic Noteon 03-17-2023 Heart and Vascular Office/Clinic Note Normal [facility] Comment on above: Result Comment: Elec tronically Signed By: Vickey WISE, Erwin Evans\.br\Date and Time Signed: 03/17/23 14:05 EDT Progress Note-Physicianon Progress Note-Physician [id number]#1.00CD:[address] [facility] Coding Queryon 03-15-2023 Coding Query Normal [facility] Progress Note-Physicianon Progress Note-Physician Normal [facility] Comment on above: Result Comment: Elec tronically Signed By: Katheryn WISE, Aiden\.br\Date and Time Signed: 03/15/23 20:46 EDT C Urineon 03-12-2023 Bacteria identified Cx Nom (U) Normal [facility] Comment on above: Performed By: #### 1 5725756, 1530775 ####[facility] [address] [place] [address] IntraOperative Documentson 0 03-11-2023 IntraOperative Documents [id number]#1.00CD:[address] [facility] .Interpretation:on HCV Ab IA Ql Comment Invalid Interpretation Code [facility] Comment on above: Result Comment: Not infected with HCV unless early or acute infection issuspected (which may be delayed in an immunocompromisedindividual), or other evidence exists to indicate HCV infection.Performed at: [facility] [address] [place], [place] [id number] PhD Azar Luevano Performed By: #### 2 895107406, 8132411798, 226651035, 6129123 ####[facility] [address] [place] [address] CHEMISTRYOrdered By: Lab ROP User on 03-10-2023 Glucose [Mass/Vol] 140 mg/dL High 55 - 99 mg/dL [facility] POC Subsection Comment on above: Result Comment: Nuno aranda RN/ POC Device SN [id number] Invalid Interpretation Code FT POC Subsection POC User ID [id number] Invalid Interpretation Code [facility] POC Subsection POC Username JOSE LUIS CAMPBELL Invalid Interpretation Code [facility] POC Subsection Glucose [Mass/Vol] 116 mg/dL High 55 - 99 mg/dL [facility] POC Subsection Comment on above: Result Comment: Nuno aranda RN/ POC Device SN [id number] Invalid Interpretation Code [facility] POC Subsection POC User ID [id number] Invalid Interpretation Code [facility] POC Subsection POC Username JOSE LUIS CAMPBELL Invalid Interpretation Code [facility] POC Subsection CHEMISTRYOrdered By: [...] 3.5 mmol/L Normal 3.5 - 5.3 mmol/L [facility] Remisol Sodium [Moles/Vol] 136 mmol/L Normal 135 - 145 mmol/L [facility] Remisol Capillary Glucose POCon Glucose [Mass/Vol] 140 mg/dL High 55-[address] [facility] Comment on above: Result Comment: Nuno MARIN Performed By: #### 2 [id number] ####[facility] [address] [place] [address] Glucose [Mass/Vol] 116 mg/dL High 55-[address] [facility] Comment on above: Result Comment: Nuno MARIN Performed By: #### 2 80315153 ####[address] [place] [address] Glucose [Mass/Vol] 83 mg/dL Normal 55-[address] [facility] Comment on above: Result Comment: Nuno MARIN Performed By: #### 2 65360313 ####[facility] [address] [place] [address] Consent for Blood Transfusio non 03-10-2023 Consent for Blood Transfusion [id number]#1.00CD:[address] [facility] Discharge Instructionson Discharge Instructions [id number]#1.00CD:[address] [facility] Discharge Note-Nursingon Discharge Note-Nursing Normal [facility] HCV Antibody RFX to Quant PC Chai 03-10-2023 HCV IgG IA Ql Non-Reactive Invalid Interpretation Code Non Reactive [facility] Comment on above: Result Comment: Perf ormed at: [facility] [address] [place], [place] [id number] PhD Azar Luevano Performed By: #### 2 113071099, 7389772300, 108408132, 1528531 ####[facility] [address] [place] [address] Hep Bs Agon 03-10-2023 HBV surface Ag IA Ql Negative Invalid Interpretation Code Negative [facility] Comment on above: Result Comment: Perf ormed at: [facility] [address] [id number] PhD Azar Luevano Performed By: #### 2 [id number], [id number], 835620750, 5700488 ####[facility] [address] [place] [address] Inpatient Clinical Summaryon 03-10-2023 Inpatient Clinical Summary Normal [facility] Inpatient Patient Summaryon 03-10-2023 Inpatient Patient Summary Normal [facility] Interdisciplinary Note - Michelet e Manageron 03-10-2023 Interdisciplinary Note - Life Sciences Director Normal [facility] Comment on above: Result Comment: Elec tronically Signed By: Sonia Morejon\.br\Date and Time Signed: 03/10/23 14:25 EDT Lyteson 03-10-2023 Anion gap [Moles/Vol] 9 mmol/L Normal 6-16 [facility] Comment on above: Order Comment: line packet sent up to floor...[facility] 03/10/2023 04:24:28 EDT Performed By: #### 2 313196, 3049475 ####[facility] [address] [place] [address] Chloride [Moles/Vol] 102 mmol/L Normal 101-111 [facility] Comment on above: Order Comment: line packet sent up to floor...[facility] 03/10/2023 04:24:28 EDT Performed By: #### 2 616275, 6797182 ####[facility] [address] [place] [address] CO2 [Moles/Vol] 29 mmol/L Normal 21-[address] [facility] Comment on above: Order Comment: line packet sent up to floor...[facility] 03/10/2023 04:24:28 EDT Performed By: #### 2 575615, 7001499 ####[facility] [address] [place] [address] Potassium [Moles/Vol] 3.5 mmol/L Normal 3.5-5.3 [facility] Comment on above: Order Comment: line packet sent up to floor...[facility] 03/10/2023 04:24:28 EDT Performed By: #### 2 457614, 8638207 ####[facility] [address] [place] [address] Sodium [Moles/Vol] 136 mmol/L Normal 135-[address] [facility] Comment on above: Order Comment: line packet sent up to floor...[facility] 03/10/2023 04:24:28 EDT Performed By: #### 2 317027, 8272767 ####[facility] [address] [place] [address] Magnesiumon 03-10-2023 Magnesium [Mass/Vol] 1.8 mg/dL Normal 1.3-2.4 [facility] Comment on above: Performed By: #### 2 601448, 8306811 ####[facility] [address] [place] [address] Progress Note-Nurseon 2022 Progress Note-Nurse Late Entry Pt's spouse took home all belongings except for the wound vac in preparation for discharge on 03/10 @ 1253. Normal [facility] Transfer Documentson 023 Transfer Documents [id number]#1.00CD:[address] [facility] UA With Cult Reflexon 2022 Bacteria LM Ql (Urine sed) TRACE Normal Trace [facility] Comment on above: Order Comment: Urina ry Catheter Insertion triggered Urinalysis With Culture Reflex order by discern. Performed By: #### 1 0538201, 3029405 ####[facility] [address] [place] [address] Bilirubin Ql (U) Negative Normal Negative [facility] Comment on above: Order Comment: Urina ry Catheter Insertion triggered Urinalysis With Culture Reflex order by discern. Performed By: #### 1 5694676, 9169126 ####[facility] [address] [place] [address] Clarity (U) CLEAR Normal Clear [facility] Comment on above: Order Comment: Urina ry Catheter Insertion triggered Urinalysis With Culture Reflex order by discern. Performed By: #### 1 8042865, 0256447 ####[address] [address] Color (U) YELLOW Normal Yellow [facility] Comment on above: Order Comment: Urina ry Catheter Insertion triggered Urinalysis With Culture Reflex order by discern. Performed By: #### 1 2992842, 2587841 ####[place] [address] Epithelial cells.squamous LM.HPF (Urine sed) [#/Area] 0-2 Normal 0-[address] [facility] Comment on above: Order Comment: Urina ry Catheter Insertion triggered Urinalysis With Culture Reflex order by discern. Performed By: #### 1 8316713, 1451967 ####[facility] [address] [place], [place] [address] Glucose Test strip (U) [Mass/Vol] Negative Normal Negative [facility] Comment on above: Order Comment: Urina ry Catheter Insertion triggered Urinalysis With Culture Reflex order by discern. Performed By: #### 1 6939194, 9125936 ####[address] [address] Hemoglobin Ql (U) 1+ Abnormal Negative [facility] Comment on above: Order Comment: Urina ry Catheter Insertion triggered Urinalysis With Culture Reflex order by discern. Performed By: #### 1 6587785, 0300409 ####[address] [address] Ketones (U) [Mass/Vol] Negative Normal Negative [facility] Comment on above: Order Comment: Urina ry Catheter Insertion triggered Urinalysis With Culture Reflex order by discern. Performed By: #### 1 0873182, 4480291 ####[facility] [address] [place] [address] [place].plasma/[place] .RBC (Bld) [Mass ratio] 4-20 Normal 0-[address] [facility] Comment on above: Order Comment: Urina ry Catheter Insertion triggered Urinalysis With Culture Reflex order by discern. Performed By: #### 1 9005796, 9625250 ####[address] [address] Mucus Ql (Urine sed) TRACE Normal Fish er [facility] Comment on above: Order Comment: Urina ry Catheter Insertion triggered Urinalysis With Culture Reflex order by discern. Performed By: #### 1 6800827, 4093774 ####[address] [address] Nitrite Ql (U) Negative Normal Negative [facility] Comment on above: Order Comment: Urina ry Catheter Insertion triggered Urinalysis With Culture Reflex order by discern. Performed By: #### 1 2659130, 1696350 ####[address] [address] pH (U) 8.5 [pH] Invalid Interpretation Code 5.0-9.[address] [facility] Comment on above: Order Comment: Urina ry Catheter Insertion triggered Urinalysis With Culture Reflex order by discern. Performed By: #### 1 0227179, 3892068 ####[place] [address] Protein (U) [Mass/Vol] TRACE Abnormal Negative [facility] Comment on above: Order Comment: Urina ry Catheter Insertion triggered Urinalysis With Culture Reflex order by discern. Performed By: #### 1 0352387, 1881839 ####[address] [address] Specific gravity (U) [Rel density] 1.015 Invalid Interpretation Code 1.005-1.[address] [facility] Comment on above: Order Comment: Urina ry Catheter Insertion triggered Urinalysis With Culture Reflex order by discern. Performed By: #### 1 7864434, 0589917 ####[address] [address] Type of Urine collection method Boles Normal [facility] Comment on above: Order Comment: Urina ry Catheter Insertion triggered Urinalysis With Culture Reflex order by discern. Performed By: #### 1 8319597, 9918688 ####[address] [address] Urobilinogen Qn (U) 0.2 {Mercedes'U}/dL Normal 0.0-1.[address] [facility] Comment on above: Order Comment: Urina ry Catheter Insertion triggered Urinalysis With Culture Reflex order by discern. Performed By: #### 1 7379024, 2920028 ####[place] [address] WBC Auto Ql (U) 1+ Abnormal Negative [facility] Comment on above: Order Comment: Urina ry Catheter Insertion triggered Urinalysis With Culture Reflex order by discern. Performed By: #### 1 2093912, 6851807 ####[place] [address] WBC LM.HPF (Urine sed) [#/Area] 6-15 Abnormal 0-[address] [facility] Comment on above: Order Comment: Urina ry Catheter Insertion triggered Urinalysis With Culture Reflex order by discern. Performed By: #### 1 [id number], [id number] ####[place] [address] URINALYSISOrdered By: Fabi Massey on 03-10-2023 Bacteria [...] PM) Normal Negative [facility] UA Auto SS [place].plasma/[place] .RBC (Bld) [Mass ratio] 4-20 /HPF Normal [...] Spec Desc Boles (03/10/23 12:33 PM) Normal [facility] UA Auto SS Urobilinogen Qn (U) 0.8819741 {Mercedes'U}/dL Normal 0.0 - 1.0 EU/dL [facility] UA Auto SS WBC Auto Ql (U) 1+ *ABN* (03/10/23 12:33 PM) Invalid Interpretation Code Negative [facility] UA Auto SS WBC LM.HPF (Urine sed) [#/Area] 6-15 /HPF Invalid Interpretation Code 0-5/HPF [facility] UA Auto SS CHEMISTRYOrdered By: Lab ROP User on 03-09-2023 Glucose [Mass/Vol] 83 mg/dL Normal 55 - 99 mg/dL [facility] POC Subsection Comment on above: Result Comment: Nuno MARIN POC Device SN [id number] Invalid Interpretation Code FT POC Subsection POC User ID [id number] Invalid Interpretation Code [facility] POC Subsection POC Username PARTHA JULIO CÉSAR Invalid Interpretation Code [facility] POC Subsection Capillary Glucose POCon 02-09 Glucose [Mass/Vol] 98 mg/dL Normal 55-[address] [facility] Comment on above: Result Comment: Nuno MARIN Performed By: #### 2 [id number] ####[facility] [address] [place] [id number] Glucose [Mass/Vol] 219 mg/dL High 55-[address] [facility] Comment on above: Result Comment: Nuno aranda RN/ Performed By: #### 2 [id number] ####[facility] [address] [place] [address] Glucose [Mass/Vol] 130 mg/dL High 55-[address] [facility] Comment on above: Result Comment: Nuno aranda RN/ Performed By: #### 2 [id number] ####[facility] [address] [place] [address] Interdisciplinary Note - Michelet e Manageron 03-09-2023 Interdisciplinary Note - Life Sciences Director [facility] Comment on above: Result Comment: Elec tronically Signed By: Sonia Morejon\.br\Date and Time Signed: 03/09/23 12:18 EDT Progress Note-Physicianon Progress Note-Physician [facility] Comment on above: Result Comment: Elec tronically Signed By: Anabela DONIS\.br\Date and Time Signed: 03/09/23 16:26 EDT\.br\Electronically Co-Signed By: Vazquez WISE, [place]\.br\Date and Time Co-Signed: 03/09/23 17:57 EDT UA With Cult Reflexon 2022 Type of Urine collection method Clean Catch Normal [facility] Comment on above: Order Comment: Urina ry Catheter Insertion triggered Urinalysis With Culture Reflex order by discern. Performed By: #### 1 [id number] ####[facility] [address] [place] [address] Bacteria LM Ql (Urine sed) TRACE Normal Trace [facility] Comment on above: Order Comment: Urina ry Catheter Insertion triggered Urinalysis With Culture Reflex order by discern. Performed By: #### 1 [id number] ####[facility] [address] [place] [address] Bilirubin Ql (U) Negative Normal Negative [facility] Comment on above: Order Comment: Urina ry Catheter Insertion triggered Urinalysis With Culture Reflex order by discern. Performed By: #### 1 [id number] ####[facility] [address] [place] [address] Clarity (U) CLEAR Normal Clear [facility] Comment on above: Order Comment: Urina ry Catheter Insertion triggered Urinalysis With Culture Reflex order by discern. Performed By: #### 1 [id number] ####[facility] [address] [place] [address] Color (U) YELLOW Normal Yellow [facility] Comment on above: Order Comment: Urina ry Catheter Insertion triggered Urinalysis With Culture Reflex order by discern. Performed By: #### 1 [id number] ####[address] [address] Epithelial cells.squamous LM.HPF (Urine sed) [#/Area] 0-2 Normal 0-[address] [facility] Comment on above: Order Comment: Urina ry Catheter Insertion triggered Urinalysis With Culture Reflex order by discern. Performed By: #### 1 [id number] ####[facility] [address] [place] [address] Glucose Test strip (U) [Mass/Vol] Negative Normal Negative [facility] Comment on above: Order Comment: Urina ry Catheter Insertion triggered Urinalysis With Culture Reflex order by discern. Performed By: #### 1 [id number] ####[facility] [address] [place] [address] Hemoglobin Ql (U) 1+ Abnormal Negative [facility] Comment on above: Order Comment: Urina ry Catheter Insertion triggered Urinalysis With Culture Reflex order by discern. Performed By: #### 1 [id number] ####[facility] [address] [place] [address] Ketones (U) [Mass/Vol] Negative Normal Negative [facility] Comment on above: Order Comment: Urina ry Catheter Insertion triggered Urinalysis With Culture Reflex order by discern. Performed By: #### 1 [id number] ####[facility] [address] [place] [address] [place].plasma/[place] .RBC (Bld) [Mass ratio] 0-3 Normal 0-[address] [facility] Comment on above: Order Comment: Urina ry Catheter Insertion triggered Urinalysis With Culture Reflex order by discern. Performed By: #### 1 [id number] ####[address] [address] Nitrite Ql (U) Negative Normal Negative [facility] Comment on above: Order Comment: Urina ry Catheter Insertion triggered Urinalysis With Culture Reflex order by discern. Performed By: #### 1 [id number] ####[address] [address] pH (U) 7.5 [pH] Invalid Interpretation Code 5.0-9.[address] [facility] Comment on above: Order Comment: Urina ry Catheter Insertion triggered Urinalysis With Culture Reflex order by discern. Performed By: #### 1 [id number] ####[address] [address] Protein (U) [Mass/Vol] Negative Normal Negative [facility] Comment on above: Order Comment: Urina ry Catheter Insertion triggered Urinalysis With Culture Reflex order by discern. Performed By: #### 1 [id number] ####[address] [address] Specific gravity (U) [Rel density] 1.010 Invalid Interpretation Code 1.005-1.[address] [facility] Comment on above: Order Comment: Urina ry Catheter Insertion triggered Urinalysis With Culture Reflex order by discern. Performed By: #### 1 [id number] ####[address] [address] Urobilinogen Qn (U) 0.2 {Mercedes'U}/dL Normal 0.0-1.[address] [facility] Comment on above: Order Comment: Urina ry Catheter Insertion triggered Urinalysis With Culture Reflex order by discern. Performed By: #### 1 [id number] ####[address] [address] WBC Auto Ql (U) Negative Normal Negative [facility] Comment on above: Order Comment: Urina ry Catheter Insertion triggered Urinalysis With Culture Reflex order by discern. Performed By: #### 1 [id number] ####[facility] [address] [place] [address] WBC LM.HPF (Urine sed) [#/Area] 0-5 Normal 0-[address] [facility] Comment on above: Order Comment: Urina ry Catheter Insertion triggered Urinalysis With Culture Reflex order by discern. Performed By: #### 1 [id number] ####[facility] [address] [place] [address] URINALYSISOrdered By: Tommy Gerardo on 03-09-2023 Bacteria [...] PM) Normal Negative [facility] UA Auto SS [place].plasma/[place] .RBC (Bld) [Mass ratio] 0-3 /HPF Normal [...] Desc Clean Catch (03/09/23 6:50 PM) Normal [facility] UA Auto SS Urobilinogen Qn (U) 0.7407430 {Mercedes'U}/dL Normal 0.0 - 1.0 EU/dL [facility] UA Auto SS WBC Auto Ql (U) Negative (03/09/23 6:50 PM) Normal Negative [facility] UA Auto SS WBC LM.HPF (Urine sed) [#/Area] 0-5 /HPF Normal 0-5/HPF [facility] UA Auto SS CHEMISTRYOrdered By: SYSTEM SYSTEM on 03-08-2023 Anion gap [Moles/Vol] 10 mmol/L Normal 6 - 16 mEq/L [facility] Remisol Chloride [Moles/Vol] 103 mmol/L Normal 101 - 1 11 mmol/L [facility] Remisol CO2 [Moles/Vol] 27 mmol/L Normal 21 - 31 mmol/L [facility] Remisol Potassium [Moles/Vol] 3.6 mmol/L Normal 3.5 - 5.3 mmol/L [facility] Remisol Sodium [Moles/Vol] 136 mmol/L Normal 135 - 145 mmol/L [facility] Remisol Capillary Glucose POCon 02-09 Glucose [Mass/Vol] 154 mg/dL High 55-[address] [facility] Comment on above: Result Comment: Nuno MARIN Performed By: #### 2 [id number] ####[facility] [address] [place] [address] Glucose [Mass/Vol] 108 mg/dL High 55-[address] [facility] Comment on above: Result Comment: Nuno MARIN Performed By: #### 2 [id number] ####[facility] [address] [place] [address] Glucose [Mass/Vol] 153 mg/dL High 55-[address] [facility] Comment on above: Result Comment: Nuno MARIN Performed By: #### 2 [id number] ####[facility] [address] [place] [address] Glucose [Mass/Vol] 144 mg/dL High 55-[address] [facility] Comment on above: Result Comment: Nuno MARIN Performed By: #### 2 [id number] ####[facility] [address] [place] [address] HIV-1/2 Ag/Ab Comboon 2022 HIV 1+2 Ab and HIV1 p24 Ag IA.rapid Nom (S/P/Bld) Negative Normal Negative [facility] Comment on above: Performed By: #### 2 [id number], [id number], [id number], [id number] ####[facility] [address] [place] [address] HIV 1+2 Ab+HIV1 p24 Ag IA Ql Non-Reactive Normal Non-Reactiv e [facility] Comment on above: Performed By: #### 2 [id number], [id number], [id number], [id number] ####[facility] [address] [place] [address] HIV Combo Internal Control Line Reactive Normal Reactive [facility] Comment on above: Performed By: #### 2 [id number], [id number], [id number], [id number] ####[facility] [address] [place] [address] HIV-1/2 Ag/Ab Combo Negative for HIV-1 a nd/or HIV-2 antibodies and HIV-1 p24 antigen. Normal Negative [facility] Interdisciplinary Note - Michelet e Manageron 03-08-2023 Interdisciplinary Note - Life Sciences Director Normal [facility] Comment on above: Result Comment: Elec tronically Signed By: Yane Escobar\camilla\Date and Time Signed: 03/08/23 12:57 EDT Interdisciplinary Note - Alf singon 03-08-2023 Interdisciplinary Note - Nursing Normal [facility] Lyteson 03-08-2023 Anion gap [Moles/Vol] 10 mmol/L Normal 6-16 [facility] Comment on above: Order Comment: yolanda azar given to jesi Casarez [id number] 03/08/2023 09:35:59 EDT Performed By: #### 2 [id number] ####[facility] [address] [place] [address] Chloride [Moles/Vol] 103 mmol/L Normal 101-111 [facility] Comment on above: Order Comment: packe t given to jesi Leida [email or web address] 03/08/2023 09:35:59 EDT Performed By: #### 2 [id number] ####[facility] [address] [place] [address] CO2 [Moles/Vol] 27 mmol/L Normal 21-[address] [facility] Comment on above: Order Comment: packe t given to jesi [email or web address] 03/08/2023 09:35:59 EDT Performed By: #### 2 [id number] ####[facility] [address] [place] [address] Potassium [Moles/Vol] 3.6 mmol/L Normal 3.5-5.3 [facility] Comment on above: Order Comment: packe t given to jesi Leida hughes002 03/08/2023 09:35:59 EDT Performed By: #### 2 [id number] ####[facility] [address] [place] [address] Sodium [Moles/Vol] 136 mmol/L Normal 135-[address] [facility] Comment on above: Order Comment: packe t given to jesi Leida [email or web address] 03/08/2023 09:35:59 EDT Performed By: #### 2 [id number] ####[facility] [address] [place] [address] Physician Orderon 03-08-2023 Physician Order [id number] [facility] Progress Note-Physicianon Progress Note-Physician Normal [facility] Comment on above: Result Comment: Elec tronically Signed By: Anabela DONIS\.br\Date and Time Signed: 03/08/23 15:57 EDT\.br\Electronically Co-Signed By: West Shukla MD\.br\Date and Time Co-Signed: 03/08/23 16:14 EDT Progress Note-Physician Normal [facility] Comment on above: Result Comment: Elec tronically Signed By: Chong Coe M.D\.br\Date and Time Signed: 03/08/23 12:34 EDT Progress Note-Physician Normal [facility] Comment on above: Result Comment: Elec tronically Signed By: Lynda Carrero RN\.br\Date and Time Signed: 03/08/23 09:30 EDT\.br\Electronically Co-Signed By: Benji Russell DO\.br\Date and Time Co-Signed: 03/08/23 10:10 EDT Progress Note-Physician Normal [facility] Comment on above: Result Comment: Elec tronically Signed By: MD Horner Ahmad F\.br\Date and Time Signed: 03/08/23 08:47 EDT Progress Note-Physician Normal [facility] Comment on above: Result Comment: Elec tronically Signed By: MD Horner Ahmad F\.br\Date and Time Signed: 03/08/23 08:46 EDT Auto Diffon 03-07-2023 Basophils/100 WBC (Bld) 0.3 % Normal 0.0-2.[address] [facility] Comment on above: Order Comment: Order Added by Discern Expert. Performed By: #### 2 079640, 6001797, 0731587, [id number] ####[facility] [address] [place] [address] Basophils/Leukocytes Auto (Bld) [Pure # fraction] 0.0 E9/L Normal 0.0-0.[address] [facility] Comment on above: Order Comment: Order Added by Discern Expert. Performed By: #### 2 275434, 7114020, 4387311, 91397152 ####[facility] [address] [place] [address] Eosinophils/100 WBC (Bld) 1.1 % Normal 0.0-8.[address] [facility] Comment on above: Order Comment: Order Added by Discern Expert. Performed By: #### 2 872895, 5703787, 6825525, 61362912 ####[facility] [address] [place] [address] Eosinophils/Leukocytes Auto (Bld) [Pure # fraction] 0.1 E9/L Normal 0.0-0.[address] [facility] Comment on above: Order Comment: Order Added by Discern Expert. Performed By: #### 2 636581, 9825038, 3876859, 25603512 ####[address] [address] Lymphocytes/100 WBC (Bld) 5.5 % Low 14.0-50.[address] [facility] Comment on above: Order Comment: Order Added by Discern Expert. Performed By: #### 2 289773, 5206911, 2607108, 00883547 ####[address] [address] Lymphocytes/Leukocytes Auto (Bld) [Pure # fraction] 0.3 E9/L Low 1.0-4.[address] [facility] Comment on above: Order Comment: Order Added by Discern Expert. Performed By: #### 2 668870, 2292951, 6490715, 82180716 ####[address] [address] Monocytes/100 WBC (Bld) 10.4 % Normal 4.0-14.[address] [facility] Comment on above: Order Comment: Order Added by Discern Expert. Performed By: #### 2 287456, 8988278, 2464413, 32521169 ####[address] [address] Monocytes/Leukocytes Auto (Bld) [Pure # fraction] 0.5 E9/L Normal 0.2-1.[address] [facility] Comment on above: Order Comment: Order Added by Discern Expert. Performed By: #### 2 485948, 0019506, 5412601, 36641043 ####[place] [address] [place] [address] Neutrophils/100 WBC (Bld) 82.7 % High 36.0-75.[address] [facility] Comment on above: Order Comment: Order Added by Discern Expert. Performed By: #### 2 570021, 9269882, 3599145, 78299111 ####[facility] [address] [place] [address] Neutrophils/Leukocytes Auto (Bld) [Pure # fraction] 4.1 E9/L Normal 2.0-7.[address] [facility] Comment on above: Order Comment: Order Added by Discern Expert. Performed By: #### 2 260454, 5537778, 7539373, 60635978 ####[facility] [address] [place] [address] BMPon 03-07-2023 Anion gap [Moles/Vol] 8 mmol/L Normal 6-16 [facility] Comment on above: Performed By: #### 2 529414, 5434229, 6524025, 19830271 ####[facility] [address] [place] [address] Calcium [Mass/Vol] 8.8 mg/dL Low 8.9-11.[address] [facility] Comment on above: Performed By: #### 2 390445, 7730294, 8090543, 07376905 ####[facility] [address] [place] [address] Chloride [Moles/Vol] 107 mmol/L Normal 101-111 [facility] Comment on above: Performed By: #### 2 078108, 3692339, 0992759, 59865027 ####[facility] [address] [place] [address] CO2 [Moles/Vol] 28 mmol/L Normal 21-[address] [facility] Comment on above: Performed By: #### 2 097403, 9206236, 6536326, 21636754 ####[facility] [address] [place] [address] Creatinine [Mass/Vol] 0.6 mg/dL Normal 0.5-1.3 [facility] Comment on above: Performed By: #### 2 312758, 7655639, 9959295, 98387844 ####[facility] [address] [place] [address] Glucose [Mass/Vol] 136 mg/dL Normal 55-[address] [facility] Comment on above: Result Comment: If t his glucose result represents a fasting glucose, interpretation should refer to the following reference range: 55-99 mg/dL Performed By: #### 2 166099, 8141914, 7250590, 86443469 ####[facility] [address] [place] [address] Potassium [Moles/Vol] 3.1 mmol/L Low 3.5-5.3 [facility] Comment on above: Performed By: #### 2 111417, 6564315, 2351268, 19239593 ####[facility] [address] [place] [address] Sodium [Moles/Vol] 140 mmol/L Normal 135-[address] [facility] Comment on above: Performed By: #### 2 374703, 5616621, 6654963, 53799505 ####[facility] [address] [place] [address] Urea nitrogen [Mass/Vol] 19 mg/dL Normal 5-[address] [facility] Comment on above: Performed By: #### 2 871348, 8683572, 1260982, 29878084 ####[facility] [address] [place] [address] Urea nitrogen/Creatinine [Mass ratio] 32 No Units High 10-[address] [facility] Comment on above: Performed By: #### 2 300058, 3810094, 8877226, 19418718 ####[facility] [address] [place] [address] CBC w/ Auto Diffon 3 Erythrocyte distribution width (RBC) [Ratio] 19.2 % High 10.9-14.[address] [facility] Comment on above: Performed By: #### 2 360654, 6366666, 1366588, 02202864 ####[facility] [address] [place] [address] Hematocrit (Bld) [Volume fraction] 27.3 % Low 37.7-49.[address] [facility] Comment on above: Performed By: #### 2 041110, 8407366, 7187502, 98412688 ####[facility] [address] [place] [address] Hemoglobin (Bld) [Mass/Vol] 8.8 g/dL Low 13.5-17.[address] [facility] Comment on above: Performed By: #### 2 504466, 5881543, 6957812, 20103833 ####[address] [address] MCH (RBC) [Entitic mass] 27.4 pg Normal 27.0-34.[address] [facility] Comment on above: Performed By: #### 2 645483, 9897205, 8490344, 03752863 ####[address] [address] MCHC (RBC) [Mass/Vol] 32.2 g/dL Normal 31.4-36.0 [facility] Comment on above: Performed By: #### 2 438118, 0810390, 1288730, 36994457 ####[address] [address] MCV (RBC) [Entitic vol] 85.0 fL Normal 80.0-100.[address] [facility] Comment on above: Performed By: #### 2 379908, 4013693, 0743135, 84746213 ####[address] [address] Platelet mean volume (Bld) [Entitic vol] 8.4 fL Normal 6.4-10.[address] [facility] Comment on above: Performed By: #### 2 691249, 2280777, 0468078, 89502432 ####[address] [address] Platelets (Bld) [#/Vol] 220.0 E9/L Normal 150.0-500.[address] [facility] Comment on above: Performed By: #### 2 905725, 5420237, 8755810, 38562889 ####[facility] [address] [place] [address] RBC (Bld) [#/Vol] 3.2 E12/L Low 4.3-5.[address] [facility] Comment on above: Performed By: #### 2 367468, 2017139, 1185740, 83109528 ####[facility] [address] [place] [address] WBC corrected for nucl RBC Auto (Bld) [#/Vol] 5.0 E9/L Normal 4.0-11.[address] [facility] Comment on above: Performed By: #### 2 032738, 6555236, 4924083, 81768395 ####[facility] [address] [place] [address] CHEMISTRYOrdered By: SYSTEM SYSTEM on 03-07-2023 Anion gap [Moles/Vol] 8 mmol/L Normal 6 - 16 mEq/L [facility] Calcium [Mass/Vol] 8.8 mg/dL Low 8.9 - 11. 1 mg/dL [facility] Chloride [Moles/Vol] 107 mmol/L Normal 101 - 1 11 mmol/L [facility] CO2 [Moles/Vol] 28 mmol/L Normal 21 - 31 mmol/L [facility] Creatinine [Mass/Vol] 0.6 mg/dL Normal 0.5 - 1.3 mg/dL [facility] GFR/1.73 sq M.predicted among non-blacks MDRD (S/P/Bld) [Vol rate/Area] 100 mL/min/1.73 m2 Normal >=59mL/min/ 1.73 m2 [facility] Chem S Glucose [Mass/Vol] 136 mg/dL Normal 55 - 199 mg/dL [facility] Potassium [Moles/Vol] 3.1 mmol/L Low 3.5 - 5.3 mmol/L [facility] Sodium [Moles/Vol] 140 mmol/L Normal 135 - 145 mmol/L [facility] Urea nitrogen [Mass/Vol] 19 mg/dL Normal 5 - 21 mg/dL [facility] Urea nitrogen/Creatinine [Mass ratio] 32 mg/mg High 10 - 20 [facility] Remisol Capillary Glucose POCon 02-08 Glucose [Mass/Vol] 138 mg/dL High 55-[address] [facility] Comment on above: Result Comment: Nuno MARIN Performed By: #### 2 [id number] ####[facility] [address] [place] [address] Glucose [Mass/Vol] 91 mg/dL Normal 55-[address] [facility] Comment on above: Result Comment: Nuno aranda RN/ Performed By: #### 2 [id number] ####[facility] [address] [place] [address] Glucose [Mass/Vol] 216 mg/dL High 55-[address] [facility] Comment on above: Result Comment: Nuno MARIN Performed By: #### 2 [id number] ####[facility] [address] [place] [address] Glucose [Mass/Vol] 133 mg/dL High 55-[address] [facility] Comment on above: Result Comment: Nuno aranda RN/ Performed By: #### 2 [id number] ####[facility] [address] [place] [address] HEMATOLOGYOrdered By: SYSTEM SYSTEM on 03-07-2023 Basophils/100 [...] Michelet e Manageron 03-07-2023 Interdisciplinary Note - Life Sciences Director Normal [facility] Comment on above: Result Comment: Elec tronically Signed By: Sonia Morejon\.br\Date and Time Signed: 03/07/23 12:44 EDT Operative Reporton 3 Operative Report Normal [facility] Comment on above: Result Comment: Elec tronically Signed By: Vickey WISE, Erwin FOtilia\.br\Date and Time Signed: 03/07/23 20:21 EDT eGFRon 03-07-2023 GFR/1.73 sq M.predicted among non-blacks MDRD (S/P/Bld) [Vol rate/Area] 100 mL/min/1.73 m2 Normal >=[address] [facility] Comment on above: Order Comment: Order added by Discern Expert. Result Comment: Undercoat Sprayer alen kidney disease could be indicated at eGFR's of less than 60 mL/min/1.73m2. Kidney failure is indicated at less than 15 mL/min/1.73m2. Performed By: #### 2 651616, 5624625, 3966412, [id number] ####[facility] [address] [place] [address] Ammoniaon 03-06-2023 Ammonia (P) [Moles/Vol] 16 mcmol Normal 11-[address] [facility] Comment on above: Performed By: #### 2 712528 ####[facility] [address] [place] [address] CHEMISTRYOrdered By: SYSTEM SYSTEM on 03-06-2023 Ammonia (P) [Moles/Vol] 16 umol Normal 11 - 35 mcmol [facility] Remisol Capillary Glucose POCon 02-08 Glucose [Mass/Vol] 129 mg/dL High 55-[address] [facility] Comment on above: Result Comment: Nuno MARIN Performed By: #### 2 [id number] ####[facility] [address] [place] [address] Glucose [Mass/Vol] 181 mg/dL High 55-[address] [facility] Comment on above: Performed By: #### 2 [id number] ####[facility] [address] [place] [address] Glucose [Mass/Vol] 209 mg/dL High 55-[address] [facility] Comment on above: Result Comment: Nuno MARIN Performed By: #### 2 [id number] ####[facility] [address] [place] [address] Glucose [Mass/Vol] 136 mg/dL High 55-[address] [facility] Comment on above: Result Comment: Nuno aranda RN/ Performed By: #### 2 [id number] ####[facility] [address] [place] [address] Interdisciplinary Note - Michelet e Manageron 03-06-2023 Interdisciplinary Note - Life Sciences Director [facility] Comment on above: Result Comment: Elec tronically Signed By: Leona Schwarz RN\.br\Date and Time Signed: 03/06/23 11:50 EDT Progress Note-Physicianon Progress Note-Physician [facility] Comment on above: Result Comment: Elec tronically Signed By: Jovanny WISE, Savage Castillo\.br\Date and Time Signed: 03/06/23 12:09 EDT Progress Note-Physician [facility] Comment on above: Result Comment: Elec tronically Signed By: Lynda Carrero RN\.br\Date and Time Signed: 03/06/23 10:26 EDT\.br\Electronically Co-Signed By: Benji Russell DO\.br\Date and Time Co-Signed: 03/06/23 10:39 EDT Progress Note-Physician [facility] Comment on above: Result Comment: Elec tronically Signed By: Shayy BALLESTEROS MD\.br\Date and Time Signed: 03/06/23 09:20 EDT Auto DiffOrdered By: SYSTEM SYSTEM on 03-05-2023 Basophils/100 WBC (Bld) 0.4 % Normal 0.0-2.0 [facility] Comment on above: Order Comment: Order Added by Discern Expert. Performed By: #### 2 352769, 22216546, 9744666, 5032192 ####[facility] [address] [place] [address] Basophils/Leukocytes Auto (Bld) [Pure # fraction] 0.0 E9/L Normal 0.0-0.2 [facility] Comment on above: Order Comment: Order Added by Discern Expert. Performed By: #### 2 297239, 79817886, 0538324, 7090465 ####[address] [address] Eosinophils/100 WBC (Bld) 0.4 % Normal 0.0-8.0 [facility] Comment on above: Order Comment: Order Added by Cristiano Expert. Performed By: #### 2 840543, 20919772, 1541081, 3484226 ####[address] [address] Eosinophils/Leukocytes Auto (Bld) [Pure # fraction] 0.0 E9/L Normal 0.0-0.5 [facility] Comment on above: Order Comment: Order Added by Cristiano Expert. Performed By: #### 2 773042, 12044005, 1923841, 1513756 ####[address] [address] Lymphocytes/100 WBC (Bld) 5.2 % Low 14.0-50.0 [facility] Comment on above: Order Comment: Order Added by Cristiano Expert. Performed By: #### 2 954941, 92611825, 1091368, 7160268 ####[address] [address] Lymphocytes/Leukocytes Auto (Bld) [Pure # fraction] 0.3 E9/L Low 1.0-4.0 [facility] Comment on above: Order Comment: Order Added by Cristiano Expert. Performed By: #### 2 999539, 10397015, 6276595, 8155212 ####[address] [address] Monocytes/100 WBC (Bld) 9.2 % Normal 4.0-14.0 [facility] Comment on above: Order Comment: Order Added by Cristiano Expert. Performed By: #### 2 254871, 81861336, 2471592, 3732443 ####[address] [address] Monocytes/Leukocytes Auto (Bld) [Pure # fraction] 0.6 E9/L Normal 0.2-1.0 [facility] Comment on above: Order Comment: Order Added by Discern Expert. Performed By: #### 2 845114, 34323724, 2483191, 6376848 ####[facility] [address] [place] [address] Neutrophils/100 WBC (Bld) 84.8 % High 36.0-75.0 [facility] Comment on above: Order Comment: Order Added by Discern Expert. Performed By: #### 2 292937, 49210358, 2260015, 3333379 ####[facility] [address] [place] [address] Neutrophils/Leukocytes Auto (Bld) [Pure # fraction] 5.6 E9/L Normal 2.0-7.5 [facility] Comment on above: Order Comment: Order Added by Discern Expert. Performed By: #### 2 239386, 17045566, 2551867, 4281389 ####[facility] [address] [place] [address] BMPon 03-05-2023 Anion gap [Moles/Vol] 9 mmol/L Normal 6-16 [facility] Comment on above: Performed By: #### 2 313408, 65505589, 0643397, 5971715 ####[facility] [address] [place] [address] Chloride [Moles/Vol] 101 mmol/L Normal 101-111 [facility] Comment on above: Performed By: #### 2 431363, 78766252, 5761445, 5194774 ####[facility] [address] [place] [address] CO2 [Moles/Vol] 26 mmol/L Normal 21-[address] [facility] Comment on above: Performed By: #### 2 638208, 33818831, 6168701, 8557581 ####[facility] [address] [place] [address] Potassium [Moles/Vol] 3.6 mmol/L Normal 3.5-5.3 [facility] Comment on above: Performed By: #### 2 069272, 05265145, 5984124, 0461716 ####[facility] [address] [place] [address] Sodium [Moles/Vol] 132 mmol/L Low 135-[address] [facility] Comment on above: Performed By: #### 2 748881, 39169045, 2900402, 9725158 ####[facility] [address] [place] [address] Urea nitrogen/Creatinine [Mass ratio] 26 No Units High 10-[address] [facility] Comment on above: Performed By: #### 2 266112, 08351407, 5067163, 1639421 ####[facility] [address] [place] [address] BMPOrdered By: SYSTEM SYSTEM on 03-05-2023 Calcium [Mass/Vol] 8.0 mg/dL Low 8.9-11.1 [facility] Comment on above: Performed By: #### 2 802731, 99785952, 0259481, 9815800 ####[facility] [address] [place] [address] Creatinine [Mass/Vol] 0.5 mg/dL Normal 0.5-1.3 [facility] Comment on above: Performed By: #### 2 401823, 81828907, 8931085, 0717425 ####[facility] [address] [place] [address] Glucose [Mass/Vol] 125 mg/dL Normal 55-199 [facility] Comment on above: Result Comment: If t his glucose result represents a fasting glucose, interpretation should refer to the following reference range: 55-99 mg/dL Performed By: #### 2 582622, 23447720, 6249098, 8767266 ####[facility] [address] [place] [address] Urea nitrogen [Mass/Vol] 13 mg/dL Normal 5-21 [facility] Comment on above: Performed By: #### 2 750328, 59040046, 2877093, 2513935 ####[address] [address] CBC w/ Auto DiffOrdered By: Yane Fitch on 03-05-2023 Erythrocyte distribution width (RBC) [Ratio] 18.2 % High 10.9-14.2 [facility] Comment on above: Performed By: #### 2 379244, 04628655, 5838357, 4792512 ####[place] [address] Hematocrit (Bld) [Volume fraction] 25.1 % Low 37.7-49.0 [facility] Comment on above: Performed By: #### 2 269142, 79904113, 3575160, 5244502 ####[address] [address] Hemoglobin (Bld) [Mass/Vol] 8.2 g/dL Low 13.5-17.5 [facility] Comment on above: Performed By: #### 2 467767, 08107781, 0172520, 1392087 ####[address] [address] MCH (RBC) [Entitic mass] 27.4 pg Normal 27.0-34.0 [facility] Comment on above: Performed By: #### 2 337055, 62292818, 4611832, 9253360 ####[address] [address] MCHC (RBC) [Mass/Vol] 32.6 g/dL Normal 31.4-36.0 [facility] Comment on above: Performed By: #### 2 072982, 00827111, 6827883, 3981444 ####[address] [address] MCV (RBC) [Entitic vol] 84.1 fL Normal 80.0-100.0 [facility] Comment on above: Performed By: #### 2 280286, 16113382, 6423785, 9045499 ####[facility] [address] [place] [address] Platelet mean volume (Bld) [Entitic vol] 8.4 fL Normal 6.4-10.8 [facility] Comment on above: Performed By: #### 2 604936, 76860588, 3490406, 1763014 ####[address] [address] Platelets (Bld) [#/Vol] 177.0 E9/L Normal 150.0-500.0 [facility] Comment on above: Performed By: #### 2 762073, 70244775, 9481925, 4051118 ####[address] [address] RBC (Bld) [#/Vol] 3.0 E12/L Low 4.3-5.9 [facility] Comment on above: Performed By: #### 2 412292, 52743486, 6502679, 8059767 ####[address] [address] WBC corrected for nucl RBC Auto (Bld) [#/Vol] 6.5 E9/L Normal 4.0-11.0 [facility] Comment on above: Performed By: #### 2 574466, 12133042, 9215137, 2047034 ####[address] [address] CHEMISTRYOrdered By: SYSTEM SYSTEM on 03-05-2023 Urea nitrogen/Creatinine [Mass ratio] 26 mg/mg High 10 - 20 [facility] Remisol Capillary Glucose POCon 02-08 Glucose [Mass/Vol] 158 mg/dL High 55-[address] [facility] Comment on above: Result Comment: Nuno MARIN Performed By: #### 2 58106412 ####[address] [address] Glucose [Mass/Vol] 130 mg/dL High 55-[address] [facility] Comment on above: Result Comment: Nuno MARIN Performed By: #### 2 46743088 ####[facility] [address] [place] [address] Glucose [Mass/Vol] 166 mg/dL High 55-[address] [facility] Comment on above: Result Comment: Nuno MARIN Performed By: #### 2 55776318 ####[facility] [address] [place] [address] Glucose [Mass/Vol] 174 mg/dL High 55-[address] [facility] Comment on above: Result Comment: Nuno MARIN Performed By: #### 2 62206477 ####[facility] [address] [place] [address] Interdisciplinary Note - Michelet e Manageron 03-05-2023 Interdisciplinary Note - Life Sciences Director [facility] Comment on above: Result Comment: Elec tronically Signed By: Chong GUARDADO, Leona\.br\Date and Time Signed: 03/05/23 11:48 EDT Progress Note-Physicianon Progress Note-Physician Normal [facility] Comment on above: Result Comment: Elec tronically Signed By: Jovanny WISE, Savage Castillo\.br\Date and Time Signed: 03/05/23 12:19 EDT eGFROrdered By: SYSTEM SystemsNetE [employer] on 03-05-2023 GFR/1.73 sq M.predicted among non-blacks MDRD (S/P/Bld) [Vol rate/Area] 106 mL/min/1.73 m2 Normal >=59 [facility] Chem S Comment on above: Order Comment: Order added by Discern Expert. Result Comment: Undercoat Sprayer alen kidney disease could be indicated at eGFR's of less than 60 mL/min/1.73m2. Kidney failure is indicated at less than 15 mL/min/1.73m2. Performed By: #### 2 142487, 77945834, 4041493, 3452203 ####[facility] [address] [place] [address] Auto DiffOrdered By: Ecohaus SYSTEM on 03-04-2023 Basophils/100 WBC (Bld) 1.3 % Normal 0.0-2.0 [facility] Comment on above: Order Comment: Order Added by Discern Expert. Performed By: #### 1 7738410, 2695761, 3084994, 1989560 ####[address] [address] Basophils/Leukocytes Auto (Bld) [Pure # fraction] 0.1 E9/L Normal 0.0-0.2 [facility] Comment on above: Order Comment: Order Added by Discern Expert. Performed By: #### 1 0335552, 4065614, 7937480, 4877862 ####[address] [address] Eosinophils/100 WBC (Bld) 0.0 % Normal 0.0-8.0 [facility] Comment on above: Order Comment: Order Added by Cristiano Expert. Performed By: #### 1 3547813, 9680827, 4699113, 2898244 ####[address] [address] Eosinophils/Leukocytes Auto (Bld) [Pure # fraction] 0.0 E9/L Normal 0.0-0.5 [facility] Comment on above: Order Comment: Order Added by Cristiano Expert. Performed By: #### 1 6562062, 5491919, 4376747, 0244578 ####[address] [address] Lymphocytes/100 WBC (Bld) 4.6 % Low 14.0-50.0 [facility] Comment on above: Order Comment: Order Added by Discern Expert. Performed By: #### 1 0762993, 0479759, 0759261, 2656427 ####[address] [address] Lymphocytes/Leukocytes Auto (Bld) [Pure # fraction] 0.4 E9/L Low 1.0-4.0 [facility] Comment on above: Order Comment: Order Added by Cristiano Expert. Performed By: #### 1 3229922, 1020413, 9312580, 3402897 ####[address] [address] Monocytes/100 WBC (Bld) 9.5 % Normal 4.0-14.0 [facility] Comment on above: Order Comment: Order Added by Discern Expert. Performed By: #### 1 3495967, 3823357, 0477628, 1414489 ####[place] [address] [place] [address] Monocytes/Leukocytes Auto (Bld) [Pure # fraction] 0.9 E9/L Normal 0.2-1.0 [facility] Comment on above: Order Comment: Order Added by Discern Expert. Performed By: #### 1 4185698, 4904808, 2395370, 7371972 ####[address] [address] Neutrophils/100 WBC (Bld) 84.6 % High 36.0-75.0 [facility] Comment on above: Order Comment: Order Added by Discern Expert. Performed By: #### 1 9098615, 0514317, 2833979, 7367084 ####[address] [address] Neutrophils/Leukocytes Auto (Bld) [Pure # fraction] 8.0 E9/L High 2.0-7.5 [facility] Comment on above: Order Comment: Order Added by Discern Expert. Performed By: #### 1 6781542, 6358578, 5958106, 3218023 ####[place] [address] [place] [address] BMPon 03-04-2023 Anion gap [Moles/Vol] 7 mmol/L Normal 6-16 [facility] Comment on above: Order Comment: line packet dropped off to floor...[facility] 03/04/2023 05:14:11 EDT Performed By: #### 1 1038996, 0326507, 3366116, 2556783 ####[address] [address] Chloride [Moles/Vol] 102 mmol/L Normal 101-111 [facility] Comment on above: Order Comment: line packet dropped off to floor...[facility] 03/04/2023 05:14:11 EDT Performed By: #### 1 9032136, 3128203, 9685467, 3275484 ####[facility] [address] [place] [address] CO2 [Moles/Vol] 27 mmol/L Normal 21-[address] [facility] Comment on above: Order Comment: line packet dropped off to floor...[facility] 03/04/2023 05:14:11 EDT Performed By: #### 1 7494482, 1233275, 9344864, 7986684 ####[facility] [address] [place] [address] Potassium [Moles/Vol] 4.0 mmol/L Normal 3.5-5.3 [facility] Comment on above: Order Comment: line packet dropped off to floor...[facility] 03/04/2023 05:14:11 EDT Performed By: #### 1 7561936, 5805927, 8726319, 7167130 ####[facility] [address] [place] [address] Sodium [Moles/Vol] 132 mmol/L Low 135-[address] [facility] Comment on above: Order Comment: line packet dropped off to floor...[facility] 03/04/2023 05:14:11 EDT Performed By: #### 1 2520119, 1532358, 7166996, 3206427 ####[facility] [address] [place] [address] Urea nitrogen/Creatinine [Mass ratio] 34 No Units High 10-[address] [facility] Comment on above: Order Comment: line packet dropped off to floor...[facility] 03/04/2023 05:14:11 EDT Performed By: #### 1 4342649, 6188432, 9966319, 4403278 ####[facility] [address] [place] [address] BMPOrdered By: SYSTEM SYSTEM on 03-04-2023 Calcium [Mass/Vol] 8.1 mg/dL Low 8.9-11.1 [facility] Remisol Comment on above: Order Comment: line packet dropped off to floor...[facility] 03/04/2023 05:14:11 EDT Performed By: #### 1 3569638, 5365992, 1094193, 3200423 ####[facility] [address] [place] [address] Creatinine [Mass/Vol] 0.5 mg/dL Normal 0.5-1.3 [facility] Comment on above: Order Comment: line packet dropped off to floor...[facility] 03/04/2023 05:14:11 EDT Performed By: #### 1 0653378, 4411657, 8879441, 9060466 ####[address] [address] Glucose [Mass/Vol] 129 mg/dL Normal 55-199 [facility] Remisol Comment on above: Order Comment: line packet dropped off to floor...[facility] 03/04/2023 05:14:11 EDT Result Comment: If t his glucose result represents a fasting glucose, interpretation should refer to the following reference range: 55-99 mg/dL Performed By: #### 1 2921848, 3978760, 6417298, 9907939 ####[address] [address] Urea nitrogen [Mass/Vol] 17 mg/dL Normal 5-21 [facility] Comment on above: Order Comment: line packet dropped off to floor...[facility] 03/04/2023 05:14:11 EDT Performed By: #### 1 7681992, 4093384, 8424927, 2545310 ####[facility] [address] [place] [address] CBC w/ Auto DiffOrdered By: Yane Fitch on 03-04-2023 Erythrocyte distribution width (RBC) [Ratio] 17.9 % High 10.9-14.2 [facility] Comment on above: Performed By: #### 1 9475110, 7961431, 8664083, 5116145 ####[place] [address] [place] [address] Hematocrit (Bld) [Volume fraction] 26.9 % Low 37.7-49.0 [facility] Comment on above: Performed By: #### 1 3408896, 7711643, 5922258, 0541705 ####[place] [address] [address] Hemoglobin (Bld) [Mass/Vol] 8.8 g/dL Low 13.5-17.5 [facility] Comment on above: Performed By: #### 1 5048235, 1797577, 8190853, 1995662 ####[place] [address] [address] MCH (RBC) [Entitic mass] 27.4 pg Normal 27.0-34.0 [facility] Comment on above: Performed By: #### 1 2103445, 4774092, 4909096, 7769522 ####[place] [address] [address] MCHC (RBC) [Mass/Vol] 32.8 g/dL Normal 31.4-36.0 [facility] Comment on above: Performed By: #### 1 2774384, 3971689, 2147960, 0113247 ####[place] [address] [address] MCV (RBC) [Entitic vol] 83.7 fL Normal 80.0-100.0 [facility] Comment on above: Performed By: #### 1 1652910, 9529000, 0489251, 4547193 ####[place] [address] [address] Platelet mean volume (Bld) [Entitic vol] 8.4 fL Normal 6.4-10.8 [facility] Comment on above: Performed By: #### 1 0361686, 3292293, 2776589, 6949319 ####[place] [address] [address] Platelets (Bld) [#/Vol] 185.0 E9/L Normal 150.0-500.0 [facility] Comment on above: Performed By: #### 1 9479130, 4721626, 3719215, 5720458 ####[facility] [address] [place] [address] RBC (Bld) [#/Vol] 3.2 E12/L Low 4.3-5.9 [facility] Comment on above: Performed By: #### 1 9488847, 8556329, 4476823, 2259639 ####[place] [address] [place] [address] WBC corrected for nucl RBC Auto (Bld) [#/Vol] 9.5 E9/L Normal 4.0-11.0 [facility] Comment on above: Performed By: #### 1 3753695, 0490635, 2378525, 5673396 ####[address] [address] CHEMISTRYOrdered By: SYSTEM SYSTEM on 03-04-2023 Urea nitrogen/Creatinine [Mass ratio] 34 mg/mg High 10 - 20 [facility] Remisol Capillary Glucose POCon 02-08 Glucose [Mass/Vol] 123 mg/dL High 55-[address] [facility] Comment on above: Result Comment: Nuno MARIN Performed By: #### 2 11613568 ####[address] [address] Glucose [Mass/Vol] 158 mg/dL High - [facility] Comment on above: Result Comment: Nuno MARIN Performed By: #### 2 58367408 ####[place] [address] [place] [address] Glucose [Mass/Vol] 154 mg/dL High 55-[address] [facility] Comment on above: Result Comment: Nuno MARIN Performed By: #### 2 65175103 ####[place] [address] [place] [address] Glucose [Mass/Vol] 136 mg/dL High 55-[address] [facility] Comment on above: Result Comment: Nuno MARIN Performed By: #### 2 09319852 ####[place] [address] [place] [address] Consent for Anesthesiaon Consent for Anesthesia [id number]:[address] [facility] Interdisciplinary Note - Michelet e Manageron 03-04-2023 Interdisciplinary Note - Life Sciences Director [facility] Comment on above: Result Comment: Elec tronically Signed By: Дмитрий GUARDADO, Alla\.br\Date and Time Signed: 03/04/23 13:05 EDT Interdisciplinary Note - Alf singon 03-04-2023 Interdisciplinary Note - Nursing Patient dressing was changed as it come off with continued movement. Normal [facility] Interdisciplinary Note - Nut ritionon 03-04-2023 Interdisciplinary Note - Nutrition [facility] Comment on above: Result Comment: Elec tronically Signed By: Lucas MEADOWS, Misty ENRIQUE\.br\Date and Time Signed: 03/04/23 10:48 EDT Other Comment: dupli cation Interdisciplinary Note - Ashley n 03-04-2023 Interdisciplinary Note - OT [facility] IntraOperative Documentson 0 03-04-2023 IntraOperative Documents [id number]:12 7 [facility] Main OR Intraoperative Recor don 03-04-2023 Main OR Intraoperative Record [facility] Progress Note-Physicianon Progress Note-Physician [facility] Comment on above: Result Comment: Elec tronically Signed By: Katheryn WISE, Aiden\.br\Date and Time Signed: 03/04/23 21:12 EDT Progress Note-Physician [facility] Comment on above: Result Comment: Elec tronically Signed By: Chong Coe M.D\.br\Date and Time Signed: 03/04/23 09:39 EDT eGFROrdered By: LUZ Hernandez on 03-04-2023 GFR/1.73 sq M.predicted among non-blacks MDRD (S/P/Bld) [Vol rate/Area] 106 mL/min/1.73 m2 Normal >=59 [facility] Chem S Comment on above: Order Comment: Order added by Discern Expert. Result Comment: Undercoat Sprayer alen kidney disease could be indicated at eGFR's of less than 60 mL/min/1.73m2. Kidney failure is indicated at less than 15 mL/min/1.73m2. Performed By: #### 1 8517961, 1597095, 8570448, 4979229 ####[place] [address] [place] [address] Auto Diffon 03-03-2023 Basophils/100 WBC (Bld) 2.3 % High 0.0-2.[address] [facility] Comment on above: Order Comment: Order Added by Discern Expert. Performed By: #### 2 424866, 5178764, 3489437, 66568985 ####[address] [place] [address] Basophils/Leukocytes Auto (Bld) [Pure # fraction] 0.2 E9/L Normal 0.0-0.[address] [facility] Comment on above: Order Comment: Order Added by Discern Expert. Performed By: #### 2 450159, 4323898, 8489798, 20329787 ####[address] [place] [address] Eosinophils/100 WBC (Bld) 0.8 % Normal 0.0-8.[address] [facility] Comment on above: Order Comment: Order Added by Discern Expert. Performed By: #### 2 440354, 6984362, 6599636, 78565059 ####[address] [address] Eosinophils/Leukocytes Auto (Bld) [Pure # fraction] 0.1 E9/L Normal 0.0-0.[address] [facility] Comment on above: Order Comment: Order Added by Discern Expert. Performed By: #### 2 852661, 4559244, 0631986, 56640294 ####[address] [address] Lymphocytes/100 WBC (Bld) 5.9 % Low 14.0-50.[address] [facility] Comment on above: Order Comment: Order Added by Discern Expert. Performed By: #### 2 196935, 2208255, 5008544, 91935829 ####[address] [place] [address] Lymphocytes/Leukocytes Auto (Bld) [Pure # fraction] 0.4 E9/L Low 1.0-4.[address] [facility] Comment on above: Order Comment: Order Added by Discern Expert. Performed By: #### 2 884225, 8758100, 6934455, 17465126 ####[address] [place] [address] Monocytes/100 WBC (Bld) 10.3 % Normal 4.0-14.[address] [facility] Comment on above: Order Comment: Order Added by Discern Expert. Performed By: #### 2 750524, 1875266, 1490225, 86773669 ####[address] [place] [address] Monocytes/Leukocytes Auto (Bld) [Pure # fraction] 0.7 E9/L Normal 0.2-1.[address] [facility] Comment on above: Order Comment: Order Added by Discern Expert. Performed By: #### 2 677768, 7182926, 4734185, 08137193 ####[address] [address] Neutrophils/100 WBC (Bld) 80.7 % High 36.0-75.[address] [facility] Comment on above: Order Comment: Order Added by Discern Expert. Performed By: #### 2 420803, 6645244, 2545428, 05057503 ####[address] [place] [address] Neutrophils/Leukocytes Auto (Bld) [Pure # fraction] 5.4 E9/L Normal 2.0-7.[address] [facility] Comment on above: Order Comment: Order Added by Discern Expert. Performed By: #### 2 163616, 3963140, 3015106, 56785973 ####[address] [place] [address] BMPon 03-03-2023 Anion gap [Moles/Vol] 7 mmol/L Normal 6-16 [facility] Comment on above: Performed By: #### 2 061210, 1539157, 1995817, 85069721 ####[facility] [address] [place] [place] [address] Calcium [Mass/Vol] 8.1 mg/dL Low 8.9-11.[address] [facility] Comment on above: Performed By: #### 2 981726, 2032937, 0969008, 70450159 ####[facility] [address] [place] [address] Chloride [Moles/Vol] 102 mmol/L Normal 101-111 [facility] Comment on above: Performed By: #### 2 553012, 5380337, 8878363, 54127147 ####[facility] [address] [place] [place] [address] CO2 [Moles/Vol] 27 mmol/L Normal 21-[address] [facility] Comment on above: Performed By: #### 2 165544, 8328315, 3145312, 17183298 ####[facility] [address] [facility] [place] [address] Creatinine [Mass/Vol] 0.5 mg/dL Normal 0.5-1.3 [facility] Comment on above: Performed By: #### 2 089955, 5125938, 9076325, 47345904 ####[facility] [address] [place] [address] Glucose [Mass/Vol] 125 mg/dL Normal 55-[address] [facility] Comment on above: Result Comment: If t his glucose result represents a fasting glucose, interpretation should refer to the following reference range: 55-99 mg/dL Performed By: #### 2 345508, 4406356, 2011551, 23132607 ####[facility] [address] [facility] [place] [address] Potassium [Moles/Vol] 3.7 mmol/L Normal 3.5-5.3 [facility] Comment on above: Performed By: #### 2 562726, 6061900, 0380177, 17990783 ####[facility] [address] [place] [address] Sodium [Moles/Vol] 132 mmol/L Low 135-[address] [facility] Comment on above: Performed By: #### 2 520115, 7458659, 4718798, 22551122 ####[facility] [address] [place] [address] Urea nitrogen [Mass/Vol] 20 mg/dL Normal 5-[address] [facility] Comment on above: Performed By: #### 2 156672, 2630464, 1648678, 74723073 ####[facility] [address] [place] [address] Urea nitrogen/Creatinine [Mass ratio] 40 No Units High 10-[address] [facility] Comment on above: Performed By: #### 2 783933, 4351244, 4296566, 31874933 ####[facility] [address] [place] [address] CBC w/ Auto Diffon Erythrocyte distribution width (RBC) [Ratio] 18.1 % High 10.9-14.[address] [facility] Comment on above: Performed By: #### 2 206887, 3450603, 9500404, 10915820 ####[facility] [address] [place] [address] Hematocrit (Bld) [Volume fraction] 26.1 % Low 37.7-49.[address] [facility] Comment on above: Performed By: #### 2 676967, 9655971, 4670011, 78439094 ####[facility] [address] [place] [address] Hemoglobin (Bld) [Mass/Vol] 8.6 g/dL Low 13.5-17.[address] [facility] Comment on above: Performed By: #### 2 033370, 9492139, 3861002, 62273544 ####[facility] [address] [place] [address] MCH (RBC) [Entitic mass] 27.1 pg Normal 27.0-34.[address] [facility] Comment on above: Performed By: #### 2 869957, 7444382, 8861574, 60515770 ####[place] [address] MCHC (RBC) [Mass/Vol] 32.9 g/dL Normal 31.4-36.0 [facility] Comment on above: Performed By: #### 2 044581, 2711825, 7298532, 93096833 ####[address] [address] MCV (RBC) [Entitic vol] 82.4 fL Normal 80.0-100.[address] [facility] Comment on above: Performed By: #### 2 670335, 6033455, 3443307, 78787640 ####[address] [address] Platelet mean volume (Bld) [Entitic vol] 9.1 fL Normal 6.4-10.[address] [facility] Comment on above: Performed By: #### 2 815292, 1380765, 6723342, 56614197 ####[place] [address] Platelets (Bld) [#/Vol] 169.0 E9/L Normal 150.0-500.[address] [facility] Comment on above: Performed By: #### 2 975535, 9685495, 9698875, 36310467 ####[address] [address] RBC (Bld) [#/Vol] 3.2 E12/L Low 4.3-5.[address] [facility] Comment on above: Performed By: #### 2 377191, 5935973, 9411094, 51426566 ####[address] [address] WBC corrected for nucl RBC Auto (Bld) [#/Vol] 6.7 E9/L Normal 4.0-11.[address] [facility] Comment on above: Performed By: #### 2 405563, 8721213, 4327116, 15021889 ####[facility] [address] [place] [address] Capillary Glucose POCon 02-08 Glucose [Mass/Vol] 235 mg/dL High 55-[address] [facility] Comment on above: Result Comment: Nuno MARIN Performed By: #### 2 14465231 ####[facility] [address] [place] [address] Glucose [Mass/Vol] 215 mg/dL High 55-[address] [facility] Comment on above: Result Comment: Nuno MARIN Performed By: #### 2 59725453 ####[facility] [address] [place] [address] Glucose [Mass/Vol] 111 mg/dL High 55- [facility] Comment on above: Result Comment: Nuno MARIN Performed By: #### 2 66960271 ####[facility] [address] [place] [address] Glucose [Mass/Vol] 128 mg/dL High 55-[address] [facility] Comment on above: Result Comment: Nuno MARIN Performed By: #### 2 82933733 ####[facility] [address] [place] [address] Consent for Procedure/Surger yon 03-03-2023 Consent for Procedure/Surgery [id number]:[address] [facility] Discharge Instructionson Discharge Instructions [id number]#[id number]:[address] 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 No family in room. Plan is to go to [facility] at discharge. Normal [facility] Comment on above: Result Comment: Elec tronically Signed By: Дмитрий RN, Alla\.br\Date and Time Signed: 03/03/23 11:35 EDT Main OR PACU I Recordon 02-08 Main OR PACU I Record Normal [facility] Main OR Preoperative Recordo n 03-03-2023 Main OR Preoperative Record Normal [facility] Monitor Recordon 03-03-2023 Monitor Record [id number]:[address] [facility] Monitor Record [id number]#[id number]:[address] [facility] Monitor Record [id number]#[id number]:[address] [facility] Progress Note-Physicianon Progress Note-Physician Normal [facility] Comment on above: Result Comment: Elec tronically Signed By: Katheryn WISE, Aiden\.br\Date and Time Signed: 03/03/23 18:30 EDT eGFRon 03-03-2023 GFR/1.73 sq M.predicted among non-blacks MDRD (S/P/Bld) [Vol rate/Area] 106 mL/min/1.73 m2 Normal >=[address] [facility] Comment on above: Order Comment: Order added by Discern Expert. Result Comment: Undercoat Sprayer alen kidney disease could be indicated at eGFR's of less than 60 mL/min/1.73m2. Kidney failure is indicated at less than 15 mL/min/1.73m2. Performed By: #### 2 794635, 5288445, 2454156, 89047422 ####[facility] [address] [place] [address] Auto Diffon 03-02-2023 Basophils/100 WBC (Bld) 1.0 % Normal 0.0-2.[address] [facility] Comment on above: Order Comment: Order Added by Discern Expert. Performed By: #### 1 2698566, 4367611, 1319719, 0328876, 4823921 ####[facility] [address] [place] [address] Basophils/Leukocytes Auto (Bld) [Pure # fraction] 0.1 E9/L Normal 0.0-0.[address] [facility] Comment on above: Order Comment: Order Added by Discern Expert. Performed By: #### 1 6451667, 2071359, 5813616, 2723226, 2450160 ####[address] [address] Eosinophils/100 WBC (Bld) 0.2 % Normal 0.0-8.[address] [facility] Comment on above: Order Comment: Order Added by Discern Expert. Performed By: #### 1 4599097, 6833289, 4323198, 6092586, 2487795 ####[address] [address] Eosinophils/Leukocytes Auto (Bld) [Pure # fraction] 0.0 E9/L Normal 0.0-0.[address] [facility] Comment on above: Order Comment: Order Added by Discern Expert. Performed By: #### 1 1921668, 4413435, 7002253, 3386740, 5381459 ####[address] [address] Lymphocytes/100 WBC (Bld) 4.7 % Low 14.0-50.[address] [facility] Comment on above: Order Comment: Order Added by Discern Expert. Performed By: #### 1 6996578, 1745169, 9610566, 2635508, 7357397 ####[address] [address] Lymphocytes/Leukocytes Auto (Bld) [Pure # fraction] 0.3 E9/L Low 1.0-4.[address] [facility] Comment on above: Order Comment: Order Added by Discern Expert. Performed By: #### 1 1539540, 4458088, 2802389, 3535341, 6865021 ####[address] [address] Monocytes/100 WBC (Bld) 10.1 % Normal 4.0-14.[address] [facility] Comment on above: Order Comment: Order Added by Discern Expert. Performed By: #### 1 5785384, 9507736, 2223608, 9321726, 1674442 ####[address] [place] [address] Monocytes/Leukocytes Auto (Bld) [Pure # fraction] 0.7 E9/L Normal 0.2-1.[address] [facility] Comment on above: Order Comment: Order Added by Discern Expert. Performed By: #### 1 8549024, 3419363, 4939093, 6075361, 4353862 ####[address] [place] [address] Neutrophils/100 WBC (Bld) 84.0 % High 36.0-75.[address] [facility] Comment on above: Order Comment: Order Added by Discern Expert. Performed By: #### 1 6890458, 3478685, 2997547, 6613102, 3174650 ####[address] [place] [address] Neutrophils/Leukocytes Auto (Bld) [Pure # fraction] 5.6 E9/L Normal 2.0-7.[address] [facility] Comment on above: Order Comment: Order Added by Discern Expert. Performed By: #### 1 0872199, 9500939, 5524744, 3499419, 9587030 ####[address] [place] [address] BMPon 03-02-2023 Anion gap [Moles/Vol] 8 mmol/L Normal 6-16 [facility] Comment on above: Order Comment: line packet sent up to floor...[facility] 03/02/2023 05:13:13 EDT Performed By: #### 1 2316959, 0040795, 5653243, 5411408, 5898119 ####[address] [place] [address] Calcium [Mass/Vol] 8.1 mg/dL Low 8.9-11.[address] [facility] Comment on above: Order Comment: line packet sent up to floor...[facility] 03/02/2023 05:13:13 EDT Performed By: #### 1 7853328, 8291993, 1841672, 7820294, 4915371 ####[facility] [address] [place] [address] Chloride [Moles/Vol] 102 mmol/L Normal 101-111 [facility] Comment on above: Order Comment: line packet sent up to floor...[facility] 03/02/2023 05:13:13 EDT Performed By: #### 1 0007807, 5510256, 1147865, 6762627, 9493325 ####[facility] [address] [place] [address] CO2 [Moles/Vol] 27 mmol/L Normal 21-[address] [facility] Comment on above: Order Comment: line packet sent up to floor...[facility] 03/02/2023 05:13:13 EDT Performed By: #### 1 8412818, 5167762, 8526204, 4685353, 4412776 ####[facility] [address] [place] [address] Creatinine [Mass/Vol] 0.6 mg/dL Normal 0.5-1.3 [facility] Comment on above: Order Comment: line packet sent up to floor...[facility] 03/02/2023 05:13:13 EDT Performed By: #### 1 3096612, 9107746, 5340045, 9878353, 8831661 ####[facility] [address] [place] [address] Glucose [Mass/Vol] 132 mg/dL Normal 55-[address] [facility] Comment on above: Order Comment: line packet sent up to floor...[facility] 03/02/2023 05:13:13 EDT Result Comment: If t his glucose result represents a fasting glucose, interpretation should refer to the following reference range: 55-99 mg/dL Performed By: #### 1 4235823, 4195833, 4919517, 7801956, 6244977 ####[facility] [address] [place] [address] Potassium [Moles/Vol] 3.9 mmol/L Normal 3.5-5.3 [facility] Comment on above: Order Comment: line packet sent up to floor...[facility] 03/02/2023 05:13:13 EDT Performed By: #### 1 7984269, 8356495, 3625646, 3834396, 3873096 ####[facility] [address] [place] [address] Sodium [Moles/Vol] 133 mmol/L Low 135-[address] [facility] Comment on above: Order Comment: line packet sent up to floor...[facility] 03/02/2023 05:13:13 EDT Performed By: #### 1 8663603, 6138098, 9299571, 1180534, 1302986 ####[facility] [address] [place] [address] Urea nitrogen [Mass/Vol] 19 mg/dL Normal 5-[address] [facility] Comment on above: Order Comment: line packet sent up to floor...[facility] 03/02/2023 05:13:13 EDT Performed By: #### 1 5854275, 7882948, 9353285, 2895977, 8844215 ####[facility] [address] [place] [address] Urea nitrogen/Creatinine [Mass ratio] 32 No Units High 10-[address] [facility] Comment on above: Order Comment: line packet sent up to floor...[facility] 03/02/2023 05:13:13 EDT Performed By: #### 1 6273484, 9268923, 6495979, 2172198, 2787930 ####[facility] [address] [place] [address] C Blood Charcoalon 3 Blood Culture Charcoal Normal [facility] Comment on above: Performed By: #### 1 6559501 ####[facility] [address] [place] [address] Blood Culture Charcoal Normal [facility] Comment on above: Performed By: #### 1 3944878 ####[facility] [address] [place] [address] CBC w/ Auto Diffon 3 Erythrocyte distribution width (RBC) [Ratio] 17.5 % High 10.9-14.[address] [facility] Comment on above: Performed By: #### 1 2700245, 9401564, 3612919, 4421552, 1737124 ####[facility] [address] [place] [address] Hematocrit (Bld) [Volume fraction] 25.4 % Low 37.7-49.[address] [facility] Comment on above: Performed By: #### 1 7448529, 2778423, 3285740, 5635045, 3806446 ####[facility] [address] [place] [address] Hemoglobin (Bld) [Mass/Vol] 8.3 g/dL Low 13.5-17.[address] [facility] Comment on above: Performed By: #### 1 2713922, 8321032, 2761260, 2219886, 4271364 ####[place] [address] [place] [address] MCH (RBC) [Entitic mass] 26.9 pg Low 27.0-34.[address] [facility] Comment on above: Performed By: #### 1 9271107, 5599306, 7242951, 4832124, 7691576 ####[facility] [address] [place] [address] MCHC (RBC) [Mass/Vol] 32.7 g/dL Normal 31.4-36.0 [facility] Comment on above: Performed By: #### 1 1163578, 4805203, 1506750, 1858292, 1847639 ####[facility] [address] [place] [address] MCV (RBC) [Entitic vol] 82.3 fL Normal 80.0-100.[address] [facility] Comment on above: Performed By: #### 1 1008488, 4604269, 4340838, 3349635, 7465440 ####[place] [place] [address] Platelet mean volume (Bld) [Entitic vol] 8.5 fL Normal 6.4-10.[address] [facility] Comment on above: Performed By: #### 1 9213422, 1060958, 9158253, 7983566, 2507072 ####[facility] [address] [place] [address] Platelets (Bld) [#/Vol] 152.0 E9/L Normal 150.0-500.[address] [facility] Comment on above: Performed By: #### 1 0744638, 8768708, 2274082, 9594288, 3573227 ####[facility] [address] [place] [address] RBC (Bld) [#/Vol] 3.1 E12/L Low 4.3-5.[address] [facility] Comment on above: Performed By: #### 1 5190170, 5409543, 4463392, 4210703, 2825674 ####[address] [address] WBC corrected for nucl RBC Auto (Bld) [#/Vol] 6.7 E9/L Normal 4.0-11.[address] [facility] Comment on above: Performed By: #### 1 1942359, 0075913, 1502651, 7879567, 5317035 ####[facility] [address] [place] [address] CHEMISTRYOrdered By: SYSTEM SYSTEM on 03-02-2023 CK [Catalytic activity/Vol] 197 [iU]/d Normal 14 - 261 Int._Unit/L [facility] Remisol CKon 03-02-2023 CK [Catalytic activity/Vol] 197 Int._Unit/L Normal 14-[address] [facility] Comment on above: Performed By: #### 1 5407438, 7365779, 3350470, 3152132, 1529953 ####[facility] [address] [place] [address] Capillary Glucose POCon 02-08 Glucose [Mass/Vol] 98 mg/dL Normal 55-[address] [facility] Comment on above: Result Comment: Nuno aranda RN/ Performed By: #### 2 53653835 ####[facility] [address] [place] [address] Glucose [Mass/Vol] 96 mg/dL Normal 55-[address] [facility] Comment on above: Result Comment: Nuno MARIN Performed By: #### 2 45806618 ####[facility] [address] [place] [address] Glucose [Mass/Vol] 164 mg/dL High 55-[address] [facility] Comment on above: Result Comment: Nuno MARIN Performed By: #### 2 66519892 ####[facility] [address] [place] [address] Glucose [Mass/Vol] 112 mg/dL High 55-[address] [facility] Comment on above: Result Comment: Nuno MARIN Performed By: #### 2 06474310 ####[facility] [address] [place] [address] Glucose [Mass/Vol] 111 mg/dL High 55-[address] [facility] Comment on above: Result Comment: Nuno MARIN Performed By: #### 2 73030520 ####[facility] [address] [place] [address] Ferritinon 03-02-2023 Ferritin [Mass/Vol] 86 ng/mL Normal 24-336 [facility] Comment on above: Result Comment: NORM ALS MEN <30 YRS 16-132 ng/mL MEN >30 YRS 8-338 ng/mL WOMEN (PREMEN) 6-104 ng/mL WOMEN (POSTMEN) 12-210 ng/mL Performed By: #### 1 9805995, 95594127, 1318402, 8649534, 0519933, 59898014, 6747069, 2421557, 2039243, 39911098 ####[facility] [address] [place] [address] Folateon 03-02-2023 Folate [Mass/Vol] 19.8 ng/mL Normal >=6.[address] [facility] Comment on above: Performed By: #### 1 3259688, 46239329, 4152261, 4498580, 6878094, 15292184, 6833437, 4032957, 4706094, 36584914 ####[facility] [address] [place] [address] Interdisciplinary Note - Michelet e Manageron 03-02-2023 Interdisciplinary Note - Life Sciences Director Normal [facility] Comment on above: Result Comment: Elec tronically Signed By: Leona Schwarz RN\.br\Date and Time Signed: 03/02/23 11:48 EDT Progress Note-Physicianon Progress Note-Physician Normal [facility] Comment on above: Result Comment: Elec tronically Signed By: Lynda Carrero RN\.br\Date and Time Signed: 03/02/23 09:23 EDT\.br\Electronically Co-Signed By: Andrea Lomax MD\.br\Date and Time Co-Signed: 03/02/23 09:35 EDT Vit B12on 03-02-2023 Cobalamin (Vitamin B12) [Mass/Vol] 1175 pg/mL Normal 50-[address] [facility] Comment on above: Performed By: #### 2 465437, 7147429, 79320641, 80965022, 13988351, 82053633, 1921623, 1926301 ####[facility] [address] [place] [address] eGFRon 03-02-2023 GFR/1.73 sq M.predicted among non-blacks MDRD (S/P/Bld) [Vol rate/Area] 100 mL/min/1.73 m2 Normal >=[address] [facility] Comment on above: Order Comment: Order added by Discern Expert. Result Comment: Undercoat Sprayer alen kidney disease could be indicated at eGFR's of less than 60 mL/min/1.73m2. Kidney failure is indicated at less than 15 mL/min/1.73m2. Performed By: #### 1 2798356, 0468233, 4722478, 1195795, 5499731 ####[facility] [address] [place] [address] ABO/Rhon 03-01-2023 ABO/Rh Positive Invalid Interpretation Code [facility] Comment on above: Performed By: #### 1 3922487, 69724956, 6645494, 6262419, 4372912, 86910001, 0444996, 4945098, 8346444, 72575743 ####[facility] [address] [place] [address] ABO/Rh History Checkon 03-01 ABO/Rh History Check Type verified by second s Normal [facility] Comment on above: Performed By: #### 1 9758958, 25140931, 2327941, 7470348, 3795781, 95211297, 2927184, 1124158, 4874492, 08733507 ####[facility] [address] [place] [address] ABO/Rh Retypeon 03-01-2023 ABO/Rh Retype Interp Positive Invalid Interpretation Code [facility] Comment on above: Performed By: #### 2 350244, 4286166, 16914004, 69380203, 90450437, 57837057, 2614006, 9416539 ####[facility] [address] [place] [address] ABSCon 03-01-2023 ABSC Gel Interp Negative Normal [facility] Comment on above: Performed By: #### 1 1965155, 30862487, 4516215, 8248363, 2158182, 93892798, 2141206, 2069891, 9168688, 08626139 ####[facility] [address] [place] [address] Auto Diffon 03-01-2023 Basophils/100 WBC (Bld) 0.6 % Normal 0.0-2.[address] [facility] Comment on above: Order Comment: Order Added by Discern Expert. Performed By: #### 2 041966, 2944375, 15460600, 08516989, 82400687, 08469693, 9909392, 1675493 ####[facility] [address] [place] [address] Basophils/Leukocytes Auto (Bld) [Pure # fraction] 0.0 E9/L Normal 0.0-0.[address] [facility] Comment on above: Order Comment: Order Added by Discern Expert. Performed By: #### 2 736360, 6403662, 20740242, 33987552, 26092364, 55024144, 0806257, 4170487 ####[facility] [address] [place] [address] Eosinophils/100 WBC (Bld) 0.5 % Normal 0.0-8.[address] [facility] Comment on above: Order Comment: Order Added by Discern Expert. Performed By: #### 2 396671, 5442863, 90050148, 14633343, 84385958, 32052089, 0852215, 6359096 ####[facility] [address] [place] [address] Eosinophils/Leukocytes Auto (Bld) [Pure # fraction] 0.0 E9/L Normal 0.0-0.[address] [facility] Comment on above: Order Comment: Order Added by Discern Expert. Performed By: #### 2 880196, 5887001, 56601188, 89777270, 81934750, 47609386, 7052975, 2319877 ####[address] [address] Lymphocytes/100 WBC (Bld) 8.7 % Low 14.0-50.[address] [facility] Comment on above: Order Comment: Order Added by Discern Expert. Performed By: #### 2 206889, 0093508, 79105844, 26658003, 45264826, 53015297, 1851474, 4116303 ####[facility] [address] [place] [address] Lymphocytes/Leukocytes Auto (Bld) [Pure # fraction] 0.5 E9/L Low 1.0-4.[address] [facility] Comment on above: Order Comment: Order Added by Cristiano Expert. Performed By: #### 2 336601, 2087641, 36833306, 19685169, 30998447, 42855181, 0158668, 7234780 ####[place] [place] [address] Monocytes/100 WBC (Bld) 11.3 % Normal 4.0-14.[address] [facility] Comment on above: Order Comment: Order Added by Discern Expert. Performed By: #### 2 731071, 1196515, 07059104, 60460661, 35809302, 34701966, 3575161, 2826762 ####[address] [place] [address] Monocytes/Leukocytes Auto (Bld) [Pure # fraction] 0.6 E9/L Normal 0.2-1.[address] [facility] Comment on above: Order Comment: Order Added by Discern Expert. Performed By: #### 2 502927, 6892587, 63380762, 50993722, 73058653, 18964708, 6032182, 4665561 ####[address] [place] [address] Neutrophils/100 WBC (Bld) 78.9 % High 36.0-75.[address] [facility] Comment on above: Order Comment: Order Added by Discern Expert. Performed By: #### 2 662331, 1335836, 76496975, 93778387, 28246898, 50237524, 8134070, 5758395 ####[address] [address] Neutrophils/Leukocytes Auto (Bld) [Pure # fraction] 4.3 E9/L Normal 2.0-7.[address] [facility] Comment on above: Order Comment: Order Added by Discern Expert. Performed By: #### 2 980773, 2639250, 53788537, 55587493, 83903695, 52785149, 7788941, 7721463 ####[address] [address] BLOOD BANKOrdered By: Fabi Massey on 03-01-2023 ABO/Rh Interp Positive Invalid Interpretation Code [facility] BB Subsection ABSC Gel Interp Negative (03/01/23 8:13 AM) Normal [facility] BB Subsection ABO/Rh Retype Interp Positive Invalid Interpretation Code [facility] BB Subsection Blood Bank ID#on 03-01-2023 BBID# [id number] Invalid Interpretation Code [facility] Comment on above: Performed By: #### 1 6729681, 11463229, 6453288, 5676520, 2151829, 38625522, 0234577, 7295304, 3266021, 39975736 ####[facility] [address] [place] [address] CBC w/ Auto Diffon Erythrocyte distribution width (RBC) [Ratio] 19.2 % High 10.9-14.[address] [facility] Comment on above: Performed By: #### 2 128692, 6541671, 69989159, 52251388, 29673845, 42555469, 3978333, 1852319 ####[facility] [address] [place] [address] Hematocrit (Bld) [Volume fraction] 19.9 % Low 37.7-49.[address] [facility] Comment on above: Performed By: #### 2 573452, 7412593, 83650619, 54715579, 15772687, 85979287, 0159518, 3465161 ####[facility] [address] [place] [address] Hemoglobin (Bld) [Mass/Vol] 6.5 g/dL Abnormal 13.5-17.[address] [facility] Comment on above: Result Comment: Resu lts Called To Isaac/Angela Mendez By _ And Read Back For Confirmation On 03/01/2023 07:50:53 EDTResults Verified By Repeat Analysis Performed By: #### 2 228615, 9081786, 79181164, 09452165, 24814099, 21497280, 5498376, 1837376 ####[facility] [address] [place] [address] MCH (RBC) [Entitic mass] 26.9 pg Low 27.0-34.[address] [facility] Comment on above: Performed By: #### 2 765184, 6307452, 46396431, 43787975, 72555131, 79107365, 4134989, 2247856 ####[place] [place] [address] MCHC (RBC) [Mass/Vol] 32.6 g/dL Normal 31.4-36.0 [facility] Comment on above: Performed By: #### 2 207802, 8700136, 68290466, 73283566, 21066556, 07200867, 9015709, 6839269 ####[address] [address] MCV (RBC) [Entitic vol] 82.3 fL Normal 80.0-100.[address] [facility] Comment on above: Performed By: #### 2 304961, 1292074, 10530824, 54214900, 90631518, 12630690, 2343053, 7500645 ####[address] [address] Platelet mean volume (Bld) [Entitic vol] 8.9 fL Normal 6.4-10.[address] [facility] Comment on above: Performed By: #### 2 604855, 1635020, 97456212, 29297883, 85264230, 23167525, 9300342, 4584874 ####[address] [address] Platelets (Bld) [#/Vol] 161.0 E9/L Normal 150.0-500.[address] [facility] Comment on above: Performed By: #### 2 681263, 8643323, 71446497, 82351101, 00137251, 81521304, 1323691, 6562427 ####[address] [address] RBC (Bld) [#/Vol] 2.4 E12/L Low 4.3-5.[address] [facility] Comment on above: Performed By: #### 2 761824, 5285276, 50102674, 65354900, 99673069, 59176098, 0222532, 7085758 ####[facility] [address] [place] [address] WBC corrected for nucl RBC Auto (Bld) [#/Vol] 5.5 E9/L Normal 4.0-11.[address] [facility] Comment on above: Performed By: #### 2 056026, 1455813, 84807977, 68892026, 17985935, 88996300, 7462057, 5432610 ####[facility] [address] [place] [address] CHEMISTRYOrdered By: SYSTEM SYSTEM on 03-01-2023 Ferritin [...] 03-01-2023 Albumin [Mass/Vol] 2.2 g/dL Low 3.3-5.[address] [facility] Comment on above: Performed By: #### 2 422307, 1953171, 81588466, 24837789, 15312642, 68383254, 4122131, 4888108 ####[facility] [address] [place] [address] Albumin/Globulin (S) [Mass conc ratio] 0.5 Low 1.1-2.[address] [facility] Comment on above: Performed By: #### 2 300377, 3104684, 63270236, 33146005, 85234423, 72052606, 2551163, 7453847 ####[facility] [address] [place] [address] ALP [Catalytic activity/Vol] 77 Int._Unit/L Normal 21-[address] [facility] Comment on above: Performed By: #### 2 800477, 3776700, 52135106, 67320180, 25138039, 05025776, 1190719, 1157168 ####[facility] [address] [place] [address] ALT No additional P-5'-P [Catalytic activity/Vol] 24 Int._Unit/L Normal 6-[address] [facility] Comment on above: Performed By: #### 2 924403, 5867481, 88674544, 82063000, 70954703, 87436491, 1848862, 5249886 ####[facility] [address] [place] [address] Anion gap [Moles/Vol] 8 mmol/L Normal 6-16 [facility] Comment on above: Performed By: #### 2 489570, 4395563, 59709961, 11594270, 26201669, 75685697, 2510866, 4654688 ####[facility] [address] [place] [address] AST [Catalytic activity/Vol] 34 Int._Unit/L Normal 5-[address] [facility] Comment on above: Performed By: #### 2 436555, 8653730, 30622433, 27152520, 46568650, 52338875, 0432963, 7330228 ####[facility] [address] [place] [address] Bilirubin [Mass/Vol] 0.6 mg/dL Normal 0.0-1.1 [facility] Comment on above: Performed By: #### 2 364362, 2680049, 42563478, 05508929, 01615840, 44999633, 5743121, 0206061 ####[address] [address] Calcium [Mass/Vol] 8.1 mg/dL Low 8.9-11.[address] [facility] Comment on above: Performed By: #### 2 235037, 1348149, 17904026, 04704213, 46982129, 12267922, 4984394, 8595634 ####[facility] [address] [place] [address] Chloride [Moles/Vol] 99 mmol/L Low 101-111 [facility] Comment on above: Performed By: #### 2 640066, 5931462, 37467041, 61332189, 57336544, 51632777, 9388600, 6493350 ####[facility] [address] [place] [address] CO2 [Moles/Vol] 28 mmol/L Normal 21-[address] [facility] Comment on above: Performed By: #### 2 421464, 3420625, 50250210, 12640052, 26698178, 84668499, 3330799, 9215953 ####[address] [place] [address] Creatinine [Mass/Vol] 0.5 mg/dL Normal 0.5-1.3 [facility] Comment on above: Performed By: #### 2 765137, 6378602, 82428486, 49662730, 77446845, 73842160, 3947345, 0646654 ####[facility] [address] [place] [address] Globulin (S) [Mass/Vol] 4.1 g/dL High 1.4-4.[address] [facility] Comment on above: Performed By: #### 2 180394, 9220706, 47940674, 01848376, 45952572, 02743055, 1538618, 3883178 ####[facility] [address] [place] [address] Glucose [Mass/Vol] 110 mg/dL Normal 55-[address] [facility] Comment on above: Result Comment: If t his glucose result represents a fasting glucose, interpretation should refer to the following reference range: 55-99 mg/dL Performed By: #### 2 064682, 3837956, 12547792, 62286276, 36865291, 91212623, 8915990, 9502839 ####[facility] [address] [place] [address] Potassium [Moles/Vol] 4.0 mmol/L Normal 3.5-5.3 [facility] Comment on above: Performed By: #### 2 069408, 6393372, 65313338, 15806280, 84858321, 09482016, 5328450, 9271106 ####[facility] [address] [place] [address] Protein [Mass/Vol] 6.3 g/dL Normal 6.0-7.[address] [facility] Comment on above: Performed By: #### 2 685111, 1124747, 01867319, 34670774, 64085522, 51207316, 5506412, 1799888 ####[facility] [address] [place] [address] Sodium [Moles/Vol] 131 mmol/L Low 135-[address] [facility] Comment on above: Performed By: #### 2 156026, 9037134, 06202696, 94643876, 50852331, 05601874, 9163826, 7122547 ####[facility] [address] [place] [address] Urea nitrogen [Mass/Vol] 22 mg/dL High 5-[address] [facility] Comment on above: Performed By: #### 2 360013, 8032876, 02029785, 00389079, 66964252, 53238463, 8393854, 6062793 ####[facility] [address] [place] [address] Urea nitrogen/Creatinine [Mass ratio] 44 No Units High 10-[address] [facility] Comment on above: Performed By: #### 2 866469, 0532759, 83628861, 40780571, 60839645, 60452707, 1010206, 9288125 ####[facility] [address] [place] [address] Capillary Glucose POCon 05 Glucose [Mass/Vol] 160 mg/dL High 55-[address] [facility] Comment on above: Result Comment: Nuno MARIN Performed By: #### 2 76272288 ####[facility] [address] [place] [address] Glucose [Mass/Vol] 110 mg/dL High 55-[address] [facility] Comment on above: Result Comment: Nuno MARIN Performed By: #### 2 22225449 ####[facility] [address] [place] [address] Glucose [Mass/Vol] 173 mg/dL High 55-[address] [facility] Comment on above: Result Comment: Nuno MARIN Performed By: #### 2 91953514 ####[facility] [address] [place] [address] Glucose [Mass/Vol] 128 mg/dL High 55-[address] [facility] Comment on above: Result Comment: Nuno aranda RN/ Performed By: #### 2 08969670 ####[facility] [address] [place] [address] Consultation Noteon 03-01-20 Consultation Note Normal [facility] Comment on above: Result Comment: Elec tronically Signed By: Win GUARDADO, Ольга Roman\.br\Date and Time Signed: 03/01/23 07:00 EDT\.br\Electronically Co-Signed By: Andrea Lomax MD\.br\Date and Time Co-Signed: 03/01/23 09:00 EDT HEMATOLOGYOrdered By: Fabi Herbert on 03-01-2023 Reticulocytes/100 RBC (Bld) 1.6 % High 0.5 - 1.5 % [facility] HemeAutoSS Comment on above: Result Comment: This Reticulocyte Count Has Been Corrected For Anemia Anisocytosis Ql (Bld) Present (03/01/23 5:30 AM) Normal FT HemeManSS Hypochromia Auto Ql (Bld) Present (03/01/23 5:30 AM) Normal [facility] HemeManSS Morphology Jah (Bld) [Interp] See Morphology (03/01/23 5:30 AM) Normal [facility] HemeManSS Interdisciplinary Note - Michelet e Manageron 03-01-2023 Interdisciplinary Note - Life Sciences Director Normal [facility] Comment on above: Result Comment: Elec tronically Signed By: Leona Schwarz RN\.br\Date and Time Signed: 03/01/23 11:25 EDT Interdisciplinary Note - Soc ial Workeron 03-01-2023 Interdisciplinary Note - Electric Arc Welder Normal [facility] Ironon 03-01-2023 Iron [Mass/Vol] 21 microgram/dL Low 35-153 Fish er [facility] Comment on above: Performed By: #### 1 7415634, 86536128, 3429816, 3902185, 3942761, 56870148, 8022592, 4643189, 0065752, 46478285 ####[facility] [address] [place] [address] LDHon 03-01-2023 LDH [Catalytic activity/Vol] 127 Int._Unit/L Normal 93-[address] [facility] Comment on above: Performed By: #### 1 6083779, 33571363, 8066448, 1517928, 5564192, 87232502, 0648822, 3051974, 5493721, 36846253 ####[facility] [address] [place] [address] MRI Brain w/o Contraston MRI Brain w/o Contrast Normal [facility] Morphon 03-01-2023 Anisocytosis Ql (Bld) Present Normal [facility] Comment on above: Order Comment: Order Added by Discern Expert. Performed By: #### 2 875034, 0076196, 01121943, 98417838, 30206008, 29755902, 4491543, 7018957 ####[facility] [address] [place] [address] Hypochromia Auto Ql (Bld) Present Normal [facility] Comment on above: Order Comment: Order Added by Discern Expert. Performed By: #### 2 734484, 3415479, 46262511, 35437980, 20843939, 69055942, 4637770, 0392592 ####[facility] [address] [place] [address] Morphology Jah (Bld) [Interp] See Morphology Normal [facility] Comment on above: Order Comment: Order Added by Discern Expert. Performed By: #### 2 730251, 3405326, 77083140, 11778742, 68268476, 15627106, 2507503, 2288067 ####[facility] [address] [place] [address] Progress Note-Physicianon Progress Note-Physician Normal [facility] Comment on above: Result Comment: Elec tronically Signed By: Chong Coe M.D\.br\Date and Time Signed: 03/01/23 14:52 EDT Progress Note-Physician Normal [facility] Comment on above: Result Comment: Elec tronically Signed By: FAVIAN WISE, Shayy\.br\Date and Time Signed: 03/01/23 09:01 EDT RAD - MRI Screening Formon 0 03-01-2023 RAD - MRI Screening Form [id number]:[address] [facility] RAD - MRI Screening Form [id number]:[address] [facility] RCOon 03-01-2023 # of Units 2 Invalid Interpretation Code [facility] Comment on above: Result Comment: 03/01 9:30 [id number] product ready and called to Emerald Castillo/ Isaac at 03/01/2023 09:29:57 EDT by BR. Performed By: #### 1 4285444 ####[facility] [address] [place] [address] Date Required 03/01/2023 Invalid Interpretation Code [facility] Comment on above: Performed By: #### 1 0212412 ####[facility] [address] [place] [address] Product Type None Required Invalid Interpretation Code [facility] Comment on above: Performed By: #### 1 1763546 ####[facility] [address] [place] [address] Retic Counton 03-01-2023 Reticulocytes/100 RBC (Bld) 1.6 % High 0.5-1.[address] [facility] Comment on above: Result Comment: This Reticulocyte Count Has Been Corrected For Anemia Performed By: #### 1 8581288, 07985524, 1918675, 6689270, 3722156, 98334419, 4940222, 1366342, 7755291, 35830969 ####[facility] [address] [place] [address] TIBC Calculatedon 03-01-2023 Iron binding capacity [Mass/Vol] 290 microgram/dL Normal 250-[address] [facility] Comment on above: Performed By: #### 1 2236345, 13731790, 0759157, 7030109, 5771672, 77572497, 9585123, 1031462, 0064246, 57500615 ####[facility] [address] [place] [address] Transferrin [Mass/Vol] 207 mg/dL Normal 200-370 [facility] Comment on above: Performed By: #### 1 2083953, 15740846, 7586539, 5227026, 9412649, 00803685, 8329636, 8348829, 7680469, 15568975 ####[facility] [address] [place] [address] TSH With T4fr Reflexon 03-01 TSH Qn 0.95 m[IU]/L Normal 0.34-5.[address] [facility] Comment on above: Performed By: #### 2 591656, 4126860, 24013215, 90589015, 77418927, 33463396, 4137645, 9403722 ####[facility] [address] [place] [address] eGFRon 03-01-2023 GFR/1.73 sq M.predicted among non-blacks MDRD (S/P/Bld) [Vol rate/Area] 106 mL/min/1.73 m2 Normal >=[address] [facility] Comment on above: Order Comment: Order added by Discern Expert. Result Comment: Undercoat Sprayer alen kidney disease could be indicated at eGFR's of less than 60 mL/min/1.73m2. Kidney failure is indicated at less than 15 mL/min/1.73m2. Performed By: #### 2 370271, 7168750, 13642799, 48252426, 31086463, 89559880, 5069228, 1632461 ####[facility] [address] [place] [address] Capillary Glucose POCon 02-08 Glucose [Mass/Vol] 212 mg/dL High 55-[address] [facility] Comment on above: Result Comment: Nuno aranad RN/ Performed By: #### 2 17318304 ####[facility] [address] [place] [address] Glucose [Mass/Vol] 134 mg/dL High 55-[address] [facility] Comment on above: Result Comment: Nuno aranda RN/ Performed By: #### 2 04599384 ####[facility] [address] [place] [address] Glucose [Mass/Vol] 157 mg/dL High 55-[address] [facility] Comment on above: Result Comment: Nuno aranda RN/ Performed By: #### 2 52468162 ####[facility] [address] [place] [address] Glucose [Mass/Vol] 126 mg/dL High 55-[address] [facility] Comment on above: Result Comment: Nuno aranda RN/ Performed By: #### 2 38332808 ####[facility] [address] [place] [address] Interdisciplinary Note - Michelet e Manageron 02-28-2023 Interdisciplinary Note - Life Sciences Director [facility] Comment on above: Result Comment: Elec tronically Signed By: Leona Schwarz RN\.br\Date and Time Signed: 02/28/23 12:21 EDT Interdisciplinary Note - Nut ritionon 02-28-2023 Interdisciplinary Note - Nutrition Pt reassessed. 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 otherwise, pt demonstrates poor appetite, but accepts supplements/nourishments. Goal not met, continue POC. Normal [facility] Comment on above: Result Comment: Elec tronically Signed By: Lucas MEADOWS, SARITA., Misty\.br\Date and Time Signed: 02/28/23 13:34 EDT BMPon 02-27-2023 Anion gap [Moles/Vol] 10 mmol/L Normal 6-16 [facility] Comment on above: Performed By: #### 1 5185074, 2016604 ####[facility] [address] [place] [address] Calcium [Mass/Vol] 8.1 mg/dL Low 8.9-11.[address] [facility] Comment on above: Performed By: #### 1 2932197, 6171379 ####[facility] [address] [place] [address] Chloride [Moles/Vol] 98 mmol/L Low 101-111 [facility] Comment on above: Performed By: #### 1 3817793, 4794401 ####[facility] [address] [place] [address] CO2 [Moles/Vol] 28 mmol/L Normal 21-[address] [facility] Comment on above: Performed By: #### 1 1184359, 2104185 ####[facility] [address] [place] [address] Creatinine [Mass/Vol] 0.6 mg/dL Normal 0.5-1.3 [facility] Comment on above: Performed By: #### 1 1699649, 4867857 ####[facility] [address] [place] [address] Glucose [Mass/Vol] 147 mg/dL Normal 55-[address] [facility] Comment on above: Result Comment: If t his glucose result represents a fasting glucose, interpretation should refer to the following reference range: 55-99 mg/dL Performed By: #### 1 8952525, 7246495 ####[facility] [facility] [address] [place] [address] Potassium [Moles/Vol] 3.6 mmol/L Normal 3.5-5.3 [facility] Comment on above: Performed By: #### 1 [id number], 1643780 ####[facility] [address] [place] [address] Sodium [Moles/Vol] 132 mmol/L Low 135-[address] [facility] Comment on above: Performed By: #### 1 0498552, 1233007 ####[facility] [address] [place] [address] Urea nitrogen [Mass/Vol] 28 mg/dL High 5-[address] [facility] Comment on above: Performed By: #### 1 8353040, 6945405 ####[facility] [address] [place] [address] Urea nitrogen/Creatinine [Mass ratio] 47 No Units High 10-[address] [facility] Comment on above: Performed By: #### 1 5581303, 8054398 ####[facility] [address] [place] [address] Capillary Glucose POCon 02-08 Glucose [Mass/Vol] 95 mg/dL Normal 55-[address] [facility] Comment on above: Result Comment: Nuno aranda RN/ Performed By: #### 2 [id number] ####[facility] [address] [place] [address] Glucose [Mass/Vol] 115 mg/dL High 55-[address] [facility] Comment on above: Result Comment: Nuno aranda RN/ Performed By: #### 2 [id number] ####[facility] [address] [facility] [place] [address] Glucose [Mass/Vol] 153 mg/dL High 55-[address] [facility] Comment on above: Result Comment: Nuno MARIN Performed By: #### 2 [id number] ####[facility] [address] [place] [address] Glucose [Mass/Vol] 111 mg/dL High 55-[address] [facility] Comment on above: Result Comment: Nuno aranda RN/ Performed By: #### 2 [id number] ####[facility] [address] [place] [address] Coding Queryon 02-27-2023 Coding Query Normal [facility] Coding Query Normal [facility] Interdisciplinary Note - Michelet e Manageron 02-27-2023 Interdisciplinary Note - Life Sciences Director Normal [facility] Comment on above: Result Comment: Elec tronically Signed By: Sonia Morejon\.br\Date and Time Signed: 02/27/23 15:31 EDT Progress Note-Physicianon Progress Note-Physician Normal [facility] Comment on above: Result Comment: Elec tronically Signed By: Ramos HERRING MD\.br\Date and Time Signed: 02/27/23 10:31 EDT eGFRon 02-27-2023 GFR/1.73 sq M.predicted among non-blacks MDRD (S/P/Bld) [Vol rate/Area] 100 mL/min/1.73 m2 Normal >=[address] [facility] Comment on above: Order Comment: Order added by Discern Expert. Result Comment: Undercoat Sprayer alen kidney disease could be indicated at eGFR's of less than 60 mL/min/1.73m2. Kidney failure is indicated at less than 15 mL/min/1.73m2. Performed By: #### 1 [id number], 7428919 ####[facility] [address] [place] [address] CT Head or Brain w/o Contras ton 02-26-2023 CT Head or Brain w/o Contrast Normal [facility] CT Spine Cervical w/o Contra ston 02-26-2023 CT Spine Cervical w/o Contrast Normal [facility] Capillary Glucose POCon 02-08 Glucose [Mass/Vol] 127 mg/dL High - [facility] Comment on above: Result Comment: Nuno MARIN Performed By: #### 2 [id number] ####[facility] [address] [place] [address] Glucose [Mass/Vol] 121 mg/dL High - [facility] Comment on above: Result Comment: Nuno MARIN Performed By: #### 2 [id number] ####[facility] [address] [place] [address] Glucose [Mass/Vol] 169 mg/dL High - [facility] Comment on above: Result Comment: Nuno MARIN Performed By: #### 2 [id number] ####[facility] [address] [place] [address] Glucose [Mass/Vol] 140 mg/dL High - [facility] Comment on above: Result Comment: Nuno MARIN Performed By: #### 2 [id number] ####[facility] [address] [place] [address] Glucose [Mass/Vol] 169 mg/dL High - [facility] Comment on above: Performed By: #### 2 [id number] ####[facility] [address] [place] [address] Interdisciplinary Note - Michelet e Manageron 02-26-2023 Interdisciplinary Note - Life Sciences Director Normal [facility] Comment on above: Result Comment: Elec tronically Signed By: Sonia Morejon\Otiliabr\Date and Time Signed: 02/26/23 10:51 EDT Progress Note-Physicianon Progress Note-Physician Normal [facility] Comment on above: Result Comment: Elec tronically Signed By: NEVAEH WISE, Ramos\Otiliabr\Date and Time Signed: 02/26/23 10:17 EDT C Urineon 02-25-2023 Bacteria identified Cx Nom (U) Normal [facility] Comment on above: Performed By: #### 1 [id number], 1403537 ####[facility] [address] [place] [address] Capillary Glucose POCon 02-07 Glucose [Mass/Vol] 133 mg/dL High 55-[address] [facility] Comment on above: Result Comment: uNno MARIN Performed By: #### 2 [id number] ####[facility] [address] [place] [address] Glucose [Mass/Vol] 91 mg/dL Normal 55-[address] [facility] Comment on above: Result Comment: Sayra francia Meter Performed By: #### 2 [id number] ####[facility] [address] [place] [address] Glucose [Mass/Vol] 155 mg/dL High 55-[address] [facility] Comment on above: Result Comment: Nuno MARIN Performed By: #### 2 [id number] ####[facility] [address] [place] [address] Consultation Noteon 02-26-20 Consultation Note Normal [facility] Comment on above: Result Comment: Elec tronically Signed By: Chong Coe M.D\Otiliabr\Date and Time Signed: 02/25/23 09:21 EDT Interdisciplinary Note - Michelet e Manageron 02-25-2023 Interdisciplinary Note - Life Sciences Director Normal [facility] Comment on above: Result Comment: Elec tronically Signed By: Дмтирий GUARDADO, Alla\.br\Date and Time Signed: 02/25/23 13:11 EDT Interdisciplinary Note - Ashley n 02-25-2023 Interdisciplinary Note - OT Normal [facility] Interdisciplinary Note - PTo n 02-25-2023 Interdisciplinary Note - PT Normal [facility] Progress Note-Physicianon Progress Note-Physician Normal [facility] Comment on above: Result Comment: Elec tronically Signed By: Manav Tinajero MD\.br\Date and Time Signed: 02/25/23 21:58 EDT Progress Note-Physician Normal [facility] Comment on above: Result Comment: Elec tronically Signed By: NEVAEH WISE, Raoms\.br\Date and Time Signed: 02/25/23 11:37 EDT Auto Diffon 02-24-2023 Basophils/100 WBC (Bld) 0.5 % Normal 0.0-2.[address] [facility] Comment on above: Order Comment: Order Added by Discern Expert. Performed By: #### 2 455102, 6522546, 5005938, 648372463, 94959460, 4976149 ####[facility] [address] [place] [address] Basophils/Leukocytes Auto (Bld) [Pure # fraction] 0.0 E9/L Normal 0.0-0.[address] [facility] Comment on above: Order Comment: Order Added by Discern Expert. Performed By: #### 2 182646, 4886214, 6598306, 112214276, 92569503, 2350198 ####[facility] [address] [place] [address] Eosinophils/100 WBC (Bld) 0.4 % Normal 0.0-8.[address] [facility] Comment on above: Order Comment: Order Added by Discern Expert. Performed By: #### 2 556403, 2102463, 2371079, 529763107, 72210627, 6115722 ####[facility] [address] [place] [address] Eosinophils/Leukocytes Auto (Bld) [Pure # fraction] 0.0 E9/L Normal 0.0-0.[address] [facility] Comment on above: Order Comment: Order Added by Discern Expert. Performed By: #### 2 892696, 6461574, 2023306, 710409950, 04610267, 1365983 ####[facility] [address] [place] [address] Lymphocytes/100 WBC (Bld) 6.2 % Low 14.0-50.[address] [facility] Comment on above: Order Comment: Order Added by Discern Expert. Performed By: #### 2 436183, 4496730, 6898507, 320056649, 45424974, 7163583 ####[facility] [address] [place] [address] Lymphocytes/Leukocytes Auto (Bld) [Pure # fraction] 0.4 E9/L Low 1.0-4.[address] [facility] Comment on above: Order Comment: Order Added by Discern Expert. Performed By: #### 2 555331, 8933040, 0730983, 371080950, 12520425, 7276001 ####[facility] [address] [place] [address] Monocytes/100 WBC (Bld) 12.6 % Normal 4.0-14.[address] [facility] Comment on above: Order Comment: Order Added by Discern Expert. Performed By: #### 2 546633, 7893607, 6267663, 248323028, 39453480, 5514260 ####[facility] [address] [place] [address] Monocytes/Leukocytes Auto (Bld) [Pure # fraction] 0.8 E9/L Normal 0.2-1.[address] [facility] Comment on above: Order Comment: Order Added by Cristiano Expert. Performed By: #### 2 951759, 8259546, 5611367, 182162082, 67419391, 2227971 ####[facility] [address] [place] [address] Neutrophils/100 WBC (Bld) 80.3 % High 36.0-75.[address] [facility] Comment on above: Order Comment: Order Added by Discern Expert. Performed By: #### 2 901486, 0117940, 1704372, 976126092, 83379428, 3332569 ####[facility] [address] [place] [address] Neutrophils/Leukocytes Auto (Bld) [Pure # fraction] 5.4 E9/L Normal 2.0-7.[address] [facility] Comment on above: Order Comment: Order Added by Discern Expert. Performed By: #### 2 592294, 0511127, 9408565, 339218054, 03011406, 8726060 ####[facility] [address] [place] [address] BMPon 02-24-2023 Anion gap [Moles/Vol] 10 mmol/L Normal 6-16 [facility] Comment on above: Performed By: #### 2 984208, 9445807, 6574425, 046974056, 16232638, 0044308 ####[facility] [address] [place] [address] Calcium [Mass/Vol] 8.1 mg/dL Low 8.9-11.[address] [facility] Comment on above: Performed By: #### 2 364889, 6148371, 7822757, 353617112, 29194832, 6656215 ####[facility] [address] [place] [address] Chloride [Moles/Vol] 98 mmol/L Low 101-111 [address] [facility] Comment on above: Performed By: #### 2 443624, 5582274, 9391420, 491941871, 89755155, 8495154 ####[facility] [address] [place] [address] CO2 [Moles/Vol] 25 mmol/L Normal 21-[address] [facility] Comment on above: Performed By: #### 2 788998, 0352899, 7110738, 493399274, 40835850, 0645857 ####[facility] [address] [place] [address] Creatinine [Mass/Vol] 0.6 mg/dL Normal 0.5-1.3 [facility] Comment on above: Performed By: #### 2 679139, 3508576, 5111805, 232261433, 44249732, 8804410 ####[facility] [address] [place] [address] Glucose [Mass/Vol] 120 mg/dL Normal 55-[address] [facility] Comment on above: Result Comment: If t his glucose result represents a fasting glucose, interpretation should refer to the following reference range: 55-99 mg/dL Performed By: #### 2 210428, 3146465, 7032556, 563100640, 38512206, 3754750 ####[facility] [address] [place] [address] Potassium [Moles/Vol] 3.9 mmol/L Normal 3.5-5.3 [facility] Comment on above: Performed By: #### 2 531240, 9033751, 5277931, 239549695, 18704973, 4321769 ####[facility] [address] [place] [address] Sodium [Moles/Vol] 129 mmol/L Low 135-[address] [facility] Comment on above: Performed By: #### 2 896272, 9605884, 2177188, 815451880, 97760320, 9131769 ####[facility] [address] [place] [address] Urea nitrogen [Mass/Vol] 16 mg/dL Normal 5-[address] [facility] Comment on above: Performed By: #### 2 273991, 0116198, 4318837, 363488408, 09596363, 8927380 ####[facility] [address] [place] [address] Urea nitrogen/Creatinine [Mass ratio] 27 No Units High 10-[address] [facility] Comment on above: Performed By: #### 2 436050, 0008677, 5684927, 130412900, 10023070, 5283524 ####[facility] [address] [place] [address] CBC w/ Auto Diffon 3 Erythrocyte distribution width (RBC) [Ratio] 19.1 % High 10.9-14.[address] [facility] Comment on above: Performed By: #### 2 530004, 1640460, 8379613, 022034044, 86808447, 3938294 ####[place] [address] [place] [address] Hematocrit (Bld) [Volume fraction] 22.3 % Low 37.7-49.[address] [facility] Comment on above: Performed By: #### 2 714087, 7385465, 2405616, 955073035, 45140952, 1097101 ####[address] [address] Hemoglobin (Bld) [Mass/Vol] 7.3 g/dL Low 13.5-17.[address] [facility] Comment on above: Performed By: #### 2 254642, 2173012, 3290626, 445854102, 38790799, 4844173 ####[facility] [address] [place] [address] MCH (RBC) [Entitic mass] 27.3 pg Normal 27.0-34.[address] [facility] Comment on above: Performed By: #### 2 640749, 5679687, 4830689, 474239932, 92850150, 8188000 ####[facility] [address] [place] [address] MCHC (RBC) [Mass/Vol] 32.6 g/dL Normal 31.4-36.0 [facility] Comment on above: Performed By: #### 2 418878, 5108370, 2870834, 154209659, 09011711, 3295954 ####[facility] [address] [place] [address] MCV (RBC) [Entitic vol] 83.8 fL Normal 80.0-100.[address] [facility] Comment on above: Performed By: #### 2 631013, 2160408, 8990581, 074031882, 24511687, 5442249 ####[facility] [address] [place] [address] Platelet mean volume (Bld) [Entitic vol] 8.8 fL Normal 6.4-10.[address] [facility] Comment on above: Performed By: #### 2 347127, 4877683, 3518414, 595866665, 05920183, 5403020 ####[facility] [address] [place] [address] Platelets (Bld) [#/Vol] 192.0 E9/L Normal 150.0-500.[address] [facility] Comment on above: Performed By: #### 2 831691, 4883387, 8803490, 586875078, 00405096, 5977608 ####[address] [address] RBC (Bld) [#/Vol] 2.7 E12/L Low 4.3-5.[address] [facility] Comment on above: Performed By: #### 2 573455, 3191460, 3005016, 346409653, 56050128, 9660146 ####[address] [address] WBC corrected for nucl RBC Auto (Bld) [#/Vol] 6.7 E9/L Normal 4.0-11.[address] [facility] Comment on above: Performed By: #### 2 280011, 4578767, 8959285, 159890180, 54460419, 7249127 ####[facility] [address] [place] [address] CHEMISTRYOrdered By: Caity Roman on 02-24-2023 CK [Catalytic activity/Vol] 21 [iU]/d Normal 14 - 261 Int._Unit/L [facility] Remisol CHEMISTRYOrdered By: Fidel Peterson on 02-24-2023 HbA1c (Bld) [Mass fraction] 5.2 % Normal <=5.9% [facility] ChemAutoSS CKon 02-24-2023 CK [Catalytic activity/Vol] 21 Int._Unit/L Normal 14-[address] [facility] Comment on above: Performed By: #### 2 168442, 8149429, 7888910, 113897323, 89632026, 8703110 ####[facility] [address] [place] [address] Capillary Glucose POCon 02-07 Glucose [Mass/Vol] 149 mg/dL High 55-[address] [facility] Comment on above: Result Comment: Nuno MARIN Performed By: #### 2 16518562 ####[place] [address] [place] [address] Glucose [Mass/Vol] 129 mg/dL High 55-[address] [facility] Comment on above: Result Comment: Nuno MARIN Performed By: #### 2 89284888 ####[facility] [address] [place] [address] Glucose [Mass/Vol] 123 mg/dL High 55-[address] [facility] Comment on above: Result Comment: Nuno MARIN Performed By: #### 2 28834209 ####[facility] [address] [place] [address] Glucose [Mass/Vol] 211 mg/dL High 55-[address] [facility] Comment on above: Result Comment: Nuno MARIN Performed By: #### 2 06131099 ####[facility] [address] [place] [address] AueJ2eej 02-24-2023 HbA1c (Bld) [Mass fraction] 5.2 % Normal <=5.[address] [facility] Comment on above: Performed By: #### 2 638557, 0519856, 2677551, 222238820, 57654401, 9965988 ####[facility] [address] [place] [address] Interdisciplinary Note - Michelet e Manageron 02-24-2023 Interdisciplinary Note - Life Sciences Director Normal [facility] Comment on above: Result Comment: Elec tronically Signed By: Sonia Morejon\.br\Date and Time Signed: 02/24/23 12:26 EDT Interdisciplinary Note - Nut ritionon 02-24-2023 Interdisciplinary Note - Nutrition Normal [facility] Comment on above: Result Comment: Elec tronically Signed By: Lucas MEADOWS, , Misty\.br\Date and Time Signed: 02/24/23 14:00 EDT\.br\Electronically Co-Signed By: NEVAEH WISE, Ramos\.br\Date and Time Co-Signed: 02/27/23 18:24 EDT Message from Medicareon 02-07 Message from Medicare [id number] [facility] Progress Note-Physicianon Progress Note-Physician Normal [facility] Comment on above: Result Comment: Elec tronically Signed By: NEVAEH WISE, Ramos\.br\Date and Time Signed: 02/24/23 11:12 EDT UA With Cult Reflexon 2022 UA Spec Desc Catheter Normal [facility] Comment on above: Result Comment: cath . specimen Performed By: #### 1 0720642, 6462426 ####[facility] [address] [place] [address] eGFRon 02-24-2023 GFR/1.73 sq M.predicted among non-blacks MDRD (S/P/Bld) [Vol rate/Area] 100 mL/min/1.73 m2 Normal >=[address] [facility] Comment on above: Order Comment: Order added by Discern Expert. Result Comment: Undercoat Sprayer alen kidney disease could be indicated at eGFR's of less than 60 mL/min/1.73m2. Kidney failure is indicated at less than 15 mL/min/1.73m2. Performed By: #### 2 376959, 5465386, 9669560, 622707979, 94614607, 5610519 ####[facility] [address] [place] [address] Auto Diffon 02-23-2023 Basophils/100 WBC (Bld) 0.8 % Normal 0.0-2.[address] [facility] Comment on above: Order Comment: Order Added by Discern Expert. Performed By: #### 2 990412, 9065783, 8076041, 01140808, 98876502, 78104218, 9440316 ####[place] [address] [place] [address] Basophils/Leukocytes Auto (Bld) [Pure # fraction] 0.1 E9/L Normal 0.0-0.[address] [facility] Comment on above: Order Comment: Order Added by Discern Expert. Performed By: #### 2 457219, 7232948, 9208135, 18643609, 31283187, 41550600, 5931123 ####[address] [address] Eosinophils/100 WBC (Bld) 0.7 % Normal 0.0-8.[address] [facility] Comment on above: Order Comment: Order Added by Discern Expert. Performed By: #### 2 207260, 8123558, 2969507, 34791539, 57277828, 97595977, 7577838 ####[address] [address] Eosinophils/Leukocytes Auto (Bld) [Pure # fraction] 0.0 E9/L Normal 0.0-0.[address] [facility] Comment on above: Order Comment: Order Added by Discern Expert. Performed By: #### 2 628555, 5037303, 1522960, 41636582, 65010037, 12913901, 1633780 ####[address] [address] Lymphocytes/100 WBC (Bld) 4.0 % Low 14.0-50.[address] [facility] Comment on above: Order Comment: Order Added by Cristiano Expert. Performed By: #### 2 792172, 7010203, 6169526, 48959342, 63669552, 02247967, 0868974 ####[facility] [address] [place] [address] [place] [address] Lymphocytes/Leukocytes Auto (Bld) [Pure # fraction] 0.3 E9/L Low 1.0-4.[address] [facility] Comment on above: Order Comment: Order Added by Discern Expert. Performed By: #### 2 179677, 4381155, 7784550, 74563095, 35364733, 35790763, 5226711 ####[place] [place] [address] Monocytes/100 WBC (Bld) 13.0 % Normal 4.0-14.[address] [facility] Comment on above: Order Comment: Order Added by Discern Expert. Performed By: #### 2 506836, 6679177, 6890929, 57105035, 78113807, 44201519, 4451311 ####[address] [address] Monocytes/Leukocytes Auto (Bld) [Pure # fraction] 1.0 E9/L Normal 0.2-1.[address] [facility] Comment on above: Order Comment: Order Added by Cristiano Expert. Performed By: #### 2 473171, 3853279, 0984193, 41324352, 46661505, 76352277, 1907416 ####[address] [address] Neutrophils/100 WBC (Bld) 81.5 % High 36.0-75.[address] [facility] Comment on above: Order Comment: Order Added by Discern Expert. Performed By: #### 2 455676, 4812064, 2166587, 52208212, 99201174, 05657198, 2401085 ####[place] [place] [address] Neutrophils/Leukocytes Auto (Bld) [Pure # fraction] 6.1 E9/L Normal 2.0-7.[address] [facility] Comment on above: Order Comment: Order Added by Cristiano Expert. Performed By: #### 2 894815, 6136304, 9907457, 18472685, 90582877, 09043041, 2299013 ####[facility] [address] [place] [address] BMPon 02-23-2023 Creatinine [Mass/Vol] 0.7 mg/dL Normal 0.5-1.3 [facility] Comment on above: Performed By: #### 2 912331, 2030446, 5463800, 90011604, 65335914, 69164236, 8019098 ####[facility] [address] [place] [address] Urea nitrogen [Mass/Vol] 17 mg/dL Normal 5-[address] [facility] Comment on above: Performed By: #### 2 080477, 1266914, 1021066, 37956032, 02215026, 23157315, 7212809 ####[facility] [address] [place] [address] Urea nitrogen/Creatinine [Mass ratio] 24 No Units High 10-[address] [facility] Comment on above: Performed By: #### 2 539357, 0305491, 9588434, 21018422, 48399938, 72362529, 8244274 ####[facility] [address] [place] [address] Anion gap [Moles/Vol] 12 mmol/L Normal 6-16 [facility] Comment on above: Performed By: #### 2 596372, 6636729, 2482872, 91883900, 95467051, 13015434, 1534092 ####[facility] [facility] [address] [place] [address] Calcium [Mass/Vol] 8.3 mg/dL Low 8.9-11.[address] [facility] Comment on above: Performed By: #### 2 228518, 1893336, 9812093, 49533394, 68988630, 72189030, 2927886 ####[facility] [address] [place] [address] Chloride [Moles/Vol] 94 mmol/L Low 101-111 [facility] Comment on above: Performed By: #### 2 679794, 1744708, 1005625, 96989910, 82297408, 36573101, 4395333 ####[facility] [address] [place] [address] CO2 [Moles/Vol] 25 mmol/L Normal 21-[address] [facility] Comment on above: Performed By: #### 2 575783, 4040415, 2741292, 05916244, 72807084, 42113417, 0764898 ####[facility] [address] [place] [address] Glucose [Mass/Vol] 128 mg/dL Normal 55-[address] [facility] Comment on above: Result Comment: If t his glucose result represents a fasting glucose, interpretation should refer to the following reference range: 55-99 mg/dL Performed By: #### 2 097839, 5645006, 9239803, 64786591, 62155506, 92023698, 7014157 ####[facility] [address] [place] [address] Potassium [Moles/Vol] 4.1 mmol/L Normal 3.5-5.3 [facility] Comment on above: Performed By: #### 2 773179, 5108706, 5172393, 04417017, 19207332, 20799751, 1487586 ####[facility] [address] [place] [address] Sodium [Moles/Vol] 127 mmol/L Low 135-[address] [facility] Comment on above: Performed By: #### 2 253280, 6539118, 5551021, 95666563, 15208128, 43948098, 8477315 ####[facility] [address] [place] [address] CBC w/ Auto Diffon 3 Erythrocyte distribution width (RBC) [Ratio] 19.6 % High 10.9-14.[address] [facility] Comment on above: Performed By: #### 2 214105, 2422066, 5579096, 67091237, 90847147, 22750119, 3206337 ####[facility] [address] [place] [address] Hematocrit (Bld) [Volume fraction] 23.8 % Low 37.7-49.[address] [facility] Comment on above: Performed By: #### 2 272246, 6289022, 7546402, 69529360, 52423320, 70974700, 4658367 ####[facility] [address] [place] [address] Hemoglobin (Bld) [Mass/Vol] 7.4 g/dL Low 13.5-17.[address] [facility] Comment on above: Performed By: #### 2 648560, 0367537, 1652533, 92522402, 96818093, 42584244, 7710941 ####[facility] [address] [place] [address] MCH (RBC) [Entitic mass] 26.6 pg Low 27.0-34.[address] [facility] Comment on above: Performed By: #### 2 019633, 7814014, 2058713, 22140074, 17509537, 58575223, 8721369 ####[facility] [address] [place] [address] MCHC (RBC) [Mass/Vol] 31.1 g/dL Low 31.4-36.0 [facility] Comment on above: Performed By: #### 2 126579, 5196553, 7566793, 23975002, 95739232, 64308750, 4102322 ####[facility] [address] [place] [address] MCV (RBC) [Entitic vol] 85.5 fL Normal 80.0-100.[address] [facility] Comment on above: Performed By: #### 2 480945, 6147599, 5421377, 95644319, 74249034, 01123044, 1593356 ####[facility] [address] [place] [address] Platelet mean volume (Bld) [Entitic vol] 8.3 fL Normal 6.4-10.[address] [facility] Comment on above: Performed By: #### 2 754186, 2223994, 6843529, 24399579, 23849682, 68206012, 5686229 ####[facility] [address] [place] [address] Platelets (Bld) [#/Vol] 188.0 E9/L Normal 150.0-500.[address] [facility] Comment on above: Performed By: #### 2 717763, 2514352, 9953196, 44121705, 57679832, 66858495, 7861920 ####[facility] [address] [place] [address] RBC (Bld) [#/Vol] 2.8 E12/L Low 4.3-5.[address] [facility] Comment on above: Performed By: #### 2 897084, 4797858, 1026321, 72792303, 05699372, 63359819, 2919285 ####[facility] [address] [place] [address] WBC corrected for nucl RBC Auto (Bld) [#/Vol] 7.4 E9/L Normal 4.0-11.[address] [facility] Comment on above: Performed By: #### 2 589004, 9730222, 3355645, 66704763, 88494747, 48200444, 4019458 ####[facility] [address] [place] [address] CHEMISTRYOrdered By: SYSTEM SYSTEM on 02-23-2023 Amphetamines [...] 33.4 s Normal 25.1 - 36.5 second(s) [facility] Auto Coag INR Coag (PPP) [Relative time] 1.3 {INR} Invalid Interpretation Code [facility] Auto Coag PT Coag (PPP) [Time] 14.4 s High 9.4 - 1 2.5 second(s) [facility] Auto Coag CT Head or Brain w/o Contras ton 02-23-2023 CT Head or Brain w/o Contrast Normal [facility] Capillary Glucose POCon 02-07 Glucose [Mass/Vol] 100 mg/dL High 55-[address] [facility] Comment on above: Result Comment: Nuno aranda RN/ Performed By: #### 2 11214353 ####[facility] [address] [place] [address] Glucose [Mass/Vol] 168 mg/dL High 55-[address] [facility] Comment on above: Result Comment: Nuno MARIN Performed By: #### 2 89145644 ####[facility] [address] [place] [address] Consent for Treatmenton 02-07 Consent for Treatment [id number]#[id number]:[address] [facility] ED Clinical Summaryon 2022 ED Clinical Summary Normal [facility] ED Note-Physicianon 02-24-20 23 ED Note-Physician Normal [facility] Comment on above: Result Comment: Elec tronically Signed By: Luz WISE, Kwasi\.br\Date and Time Signed: 02/23/23 14:17 EDT ED Patient Education Noteon 02-23-2023 ED Patient Education Note Normal [facility] ED Patient Summaryon 023 ED Patient Summary Normal [facility] Ethanolon 02-23-2023 Ethanol [Mass/Vol] mg/dL Normal <=[address] [facility] Comment on above: Performed By: #### 2 876130 ####[facility] [address] [place] [address] Hep Func Panelon 02-23-2023 Albumin [Mass/Vol] 2.4 g/dL Low 3.3-5.[address] [facility] Comment on above: Performed By: #### 2 579375, 0869439, 6841247, 38191282, 69065521, 23740130, 5985094 ####[facility] [address] [place] [address] Albumin/Globulin (S) [Mass conc ratio] 0.6 Low 1.1-2.[address] [facility] Comment on above: Performed By: #### 2 899018, 8057631, 1910613, 66322351, 31286203, 56628188, 6033665 ####[facility] [address] [place] [address] ALP [Catalytic activity/Vol] 91 Int._Unit/L Normal 21-[address] [facility] Comment on above: Performed By: #### 2 591937, 8150567, 6817723, 85928636, 93887952, 52239163, 0928213 ####[facility] [address] [place] [address] ALT No additional P-5'-P [Catalytic activity/Vol] 27 Int._Unit/L Normal 6-[address] [facility] Comment on above: Performed By: #### 2 987573, 7674455, 8222102, 81440316, 73601798, 65504072, 4138188 ####[facility] [address] [place] [address] AST [Catalytic activity/Vol] 21 Int._Unit/L Normal 5-[address] [facility] Comment on above: Performed By: #### 2 530336, 3200089, 5852883, 58951751, 93123488, 53807959, 7465932 ####[facility] [address] [place] [address] Bilirubin [Mass/Vol] 0.7 mg/dL Normal 0.0-1.1 [facility] Comment on above: Performed By: #### 2 242863, 1192312, 4177353, 07500360, 89703372, 68989761, 8133955 ####[facility] [address] [place] [address] Bilirubin.direct [Mass/Vol] 0.2 mg/dL Normal 0.1-0.[address] [facility] Comment on above: Performed By: #### 2 897560, 5930702, 5891430, 58297252, 07195910, 09422520, 8457011 ####[facility] [address] [place] [address] Bilirubin.indirect [Mass or moles/Vol] 0.5 mg/dL Normal 0.1-0.[address] [facility] Comment on above: Performed By: #### 2 779738, 1046963, 7625353, 60816685, 99319486, 81484959, 1842105 ####[facility] [address] [place] [address] Globulin (S) [Mass/Vol] 4.4 g/dL High 1.4-4.[address] [facility] Comment on above: Performed By: #### 2 791202, 7380262, 2302868, 41441968, 81269450, 81892810, 1760136 ####[facility] [address] [place] [address] Protein [Mass/Vol] 6.8 g/dL Normal 6.0-7.[address] [facility] Comment on above: Performed By: #### 2 641153, 5009008, 4201512, 31461220, 77749172, 32467618, 2592224 ####[facility] [address] [place] [address] Laboratory - Microbiology an d Antimicrobial susceptibilityOrdered By: Sabiha Ayala on 02-23-2023 Bacteria identified Cx Nom (U) No growth at 2 days. [facility] Monitor Recordon 02-23-2023 Monitor Record [id number]#[id number]:[address] [facility] No Panel InformationOrdered By: Meaghan Pinzon on 02-23-2023 Blood Culture Charcoal No growth at 7 days. [facility] Blood Culture Charcoal No growth at 7 days. [facility] PT & PTTon 02-23-2023 aPTT Coag (PPP) [Time] 33.4 second(s) Normal 25.1-36.[address] [facility] Comment on above: Result Comment: Para meter [...] the same coagulation reagent and instrumentation as [facility]. Currently there are no coagulation studies available worldwide for children to 14 days, and no normal ranges. Heparin therapeutic range (represented by Anti-Factor Xa activity of 0.2 - 0.4 U/mL) corresponds to PTT of 56.6 - 109.0 sec. Performed By: #### 2 344772, 9875555, 0303972, 25261458, 94678259, 82991475, 2927640 ####[facility] [address] [place] [address] INR Coag (PPP) [Relative time] 1.3 {INR} Invalid Interpretation Code [facility] Comment on above: Result Comment: INR results are specifically intended to assess patients stabilized on long-term Anticoagulation therapy suggested INR?s ?Less Intensive Anticoagulation? 2.0 ? 3.0Conventional Range 3.0 ? 4.5 Performed By: #### 2 003641, 5734814, 3455219, 25435798, 50416332, 20161900, 2217763 ####[facility] [address] [place] [address] PT Coag (PPP) [Time] 14.4 second(s) High 9.4-12.[address] [facility] Comment on above: Result Comment: 15 d [...] the same coagulation reagent and instrumentation as [facility]. Currently there are no coagulation studies available worldwide for children to 14 days, and no normal ranges. Performed By: #### 2 743807, 0351493, 7038104, 72455708, 66446561, 30542464, 9395993 ####[facility] [address] [place] [address] Troponin 0 Hr.on 02-23-2023 Troponin I.cardiac [Mass/Vol] 6.20 pg/mL Low 15.90-38.[address] [facility] Comment on above: Result Comment: The 95% CI (Confidence Interval) PPV (Positive Predictive Value) for myocardial infarction in females is 38 pg/mL, in males 51 pg/mL. The results should be used in conjunction with clinical conditions of myocardial infarction.(Access High Sensitivity Troponin I Instructions For Use, Daljit Decker, May 2018) Performed By: #### 2 710894, 7956649, 9474065, 75232421, 75391991, 50882941, 2397069 ####[facility] [address] [place] [address] U Drug Screenon 02-23-2023 Tetrahydrocannabinol Screen method >50 ng/mL Ql (U) Positive Abnormal Negative [facility] Comment on above: Result Comment: Crit ical Result verified by repeat analysis\Critical Result UD_THC:POS Called to ANGIE JEAN AT ER by RAJAN HERBERT And Read Back For Confirmation at: 02/23/2023 12:38:36Negative Cutoff: <50 ng/mL Performed By: #### 2 080698 ####[facility] [address] [place] [address] Amphetamines Screen method >1000 ng/mL Ql (U) Negative Normal Negative [facility] Comment on above: Result Comment: Nega tive Cutoff: <1000 ng/mL Performed By: #### 2 911647 ####[facility] [address] [place] [address] Barbiturates Screen Ql (U) Negative Normal Negative [facility] Comment on above: Result Comment: Nega tive Cutoff: <200 ng/mL Performed By: #### 2 541316 ####[facility] [address] [place] [address] Benzodiazepines Ql (U) Negative Normal Negative [facility] Comment on above: Result Comment: Nega tive Cutoff: <200 ng/mL Performed By: #### 2 071264 ####[facility] [address] [place] [address] Cocaine Ql (U) Negative Normal Negative [facility] Comment on above: Result Comment: Nega tive Cutoff: <300 ng/mL Performed By: #### 2 895124 ####[facility] [address] [place] [address] Opiates Screen Ql (U) Negative Normal Negative [facility] Comment on above: Result Comment: Nega tive Cutoff: <300 ng/mL Performed By: #### 2 603435 ####[facility] [address] [place] [address] Phencyclidine Screen method >25 ng/mL Ql (U) Negative Normal Negative [facility] Comment on above: Result Comment: Nega tive Cutoff: <25 ng/mLThese drug screen results are to be used for medical (i.e., treatment) purposes only. Unconfirmed drug screening results must not be used for non-medical purposes (e.g., employment testing, legal testing). Performed By: #### 2 156618 ####[facility] [address] [place] [address] UA With Cult Reflexon 2022 Bacteria LM Ql (Urine sed) 2+ /HPF Abnormal Trace [facility] Comment on above: Performed By: #### 1 4821183, 5210980 ####[address] [address] Bilirubin Ql (U) Negative Normal Negative [facility] Comment on above: Performed By: #### 1 1454627, 1519022 ####[address] [address] Clarity (U) CLEAR Normal Clear [facility] Comment on above: Performed By: #### 1 2203343, 8685074 ####[address] [address] Color (U) YELLOW Normal Yellow [facility] Comment on above: Performed By: #### 1 3055555, 3703882 ####[address] [address] Epithelial cells.squamous LM.HPF (Urine sed) [#/Area] 0-2 Normal 0-[address] [facility] Comment on above: Performed By: #### 1 2248741, 9459244 ####[address] [address] Fine Granular Casts LM Ql (Urine sed) 0-[address] [facility] Comment on above: Performed By: #### 1 8288696, 3924005 ####[address] [address] Glucose Test strip (U) [Mass/Vol] Negative Normal Negative [facility] Comment on above: Performed By: #### 1 5385821, 3088762 ####[facility] [address] [place] [address] Hemoglobin Ql (U) 2+ Abnormal Negative [facility] Comment on above: Performed By: #### 1 8920662, 2228476 ####[facility] [address] [place] [address] Ketones (U) [Mass/Vol] Negative Normal Negative [facility] Comment on above: Performed By: #### 1 1316620, 3882681 ####[facility] [address] [place] [address] [place].plasma/[place] .RBC (Bld) [Mass ratio] 0-3 Normal 0-[address] [facility] Comment on above: Performed By: #### 1 3620956, 1039058 ####[facility] [address] [place] [address] Mucus Ql (Urine sed) TRACE Normal [facility] Comment on above: Performed By: #### 1 3911554, 2598710 ####[address] [address] Nitrite Ql (U) Negative Normal Negative [facility] Comment on above: Performed By: #### 1 5333269, 1614951 ####[facility] [address] [place] [address] pH (U) 6.5 [pH] Invalid Interpretation Code 5.0-9.[address] [facility] Comment on above: Performed By: #### 1 6817481, 1376591 ####[facility] [address] [place] [address] Protein (U) [Mass/Vol] 2+ Abnormal Negative [facility] Comment on above: Performed By: #### 1 9265906, 7365295 ####[facility] [address] [place] [address] Specific gravity (U) [Rel density] 1.020 Invalid Interpretation Code 1.005-1.[address] [facility] Comment on above: Performed By: #### 1 5667428, 6853781 ####[facility] [address] [place] [address] Urobilinogen Qn (U) 0.2 {Mercedes'U}/dL Normal 0.0-1.[address] [facility] Comment on above: Performed By: #### 1 0105948, 0496571 ####[facility] [address] [place] [address] WBC Auto Ql (U) Negative Normal Negative [facility] Comment on above: Performed By: #### 1 0568100, 6599462 ####[facility] [address] [place] [address] WBC LM.HPF (Urine sed) [#/Area] 0-5 Normal 0-[address] [facility] Comment on above: Performed By: #### 1 4163385, 0762553 ####[facility] [address] [place] [address] URINALYSISOrdered By: Elodia puckett on 02-23-2023 Bacteria [...] AM) Normal Negative [facility] UA Auto SS [place].plasma/[place] .RBC (Bld) [Mass ratio] 0-3 /HPF Normal 0-3/HPF [facility] UA Auto SS Mucus Ql (Urine sed) Trace (02/23/23 11:47 AM) Normal [facility] UA Auto SS Nitrite Ql (U) Negative (02/23/23 11:47 AM) Normal Negative [facility] UA Auto SS pH (U) 6.5 *NA* (02/23/23 11:47 AM) Invalid Interpretation Code 5.0 - 9.0 [facility] UA Auto SS Protein (U) [Mass/Vol] 2+ *ABN* (02/23/23 11:47 AM) Invalid Interpretation Code Negative [facility] UA Auto SS Specific gravity (U) [Rel density] 1.020 *NA* (02/23/23 11:47 AM) Invalid Interpretation Code 1.005 - 1.030 [facility] UA Auto SS UA Spec Desc Catheter 1 (02/23/23 11:47 AM) Normal [facility] UA Auto SS Comment on above: Result Comment: cath . specimen Urobilinogen Qn (U) 0.8512937 {Mercedes'U}/dL Normal 0.0 - 1.0 EU/dL [facility] UA Auto SS WBC Auto Ql (U) Negative (02/23/23 11:47 AM) Normal Negative [facility] UA Auto SS WBC LM.HPF (Urine sed) [#/Area] 0-5 /HPF Normal 0-5/HPF [facility] UA Auto SS XR Chest Single Viewon 02-23 XR Chest Single View Normal [facility] eGFRon 02-23-2023 GFR/1.73 sq M.predicted among non-blacks MDRD (S/P/Bld) [Vol rate/Area] 95 mL/min/1.73 m2 Normal >=[address] [facility] Comment on above: Order Comment: Order added by Discern Expert. Result Comment: Undercoat Sprayer alen kidney disease could be indicated at eGFR's of less than 60 mL/min/1.73m2. Kidney failure is indicated at less than 15 mL/min/1.73m2. Performed By: #### 2 616770, 8934229, 1590044, 40411542, 20614553, 42642862, 5045955 ####[facility] [address] [place] [address] 36on 02-21-2023 36 Conformation on SS# what they have on file don't match what's on the order. Ask for Yeimi or adebayo Mitchell will be leaving soon. Normal [facility] Consent for PICC lineon 02-07 Consent for PICC line [id number]#1.00CD:[address] [facility] Consent for Treatmenton 02-07 Consent for Treatment [id number]#1.00CD:[address] [facility] Consent for Treatment [id number]#1.00CD:[address] [facility] Consent for Treatmenton 02-07 Consent for Treatment [id number]#1.00CD:[address] [facility] Heart and Vascular Office/Cl inic Noteon 02-17-2023 Heart and Vascular Office/Clinic Note Normal [facility] Comment on above: Result Comment: Elec tronically Signed By: Vickey WISE, Erwin FOtilia\.br\Date and Time Signed: 02/17/23 10:46 EDT Physician Orderon 02-17-2023 Physician Order [id number]#1.00CD:[address] [facility] Consent for PICC lineon 02-07 Consent for PICC line [id number]#1.00CD:[address] [facility] Auto Diffon 02-15-2023 Basophils/100 WBC (Bld) 0.0 % Normal 0.0-2.[address] [facility] Comment on above: Order Comment: Order Added by Discern Expert. Performed By: #### 2 745981, 5016915, 51135466, 9722359, 81996675, 0783259 ####[address] [place] [address] Basophils/Leukocytes Auto (Bld) [Pure # fraction] 0.0 E9/L Normal 0.0-0.[address] [facility] Comment on above: Order Comment: Order Added by Discern Expert. Performed By: #### 2 014095, 1669552, 23731560, 1307961, 93562123, 9401724 ####[address] [address] Eosinophils/100 WBC (Bld) 0.0 % Normal 0.0-8.[address] [facility] Comment on above: Order Comment: Order Added by Discern Expert. Performed By: #### 2 097237, 0696635, 81904209, 5140479, 75525535, 1999763 ####[address] [address] Eosinophils/Leukocytes Auto (Bld) [Pure # fraction] 0.0 E9/L Normal 0.0-0.[address] [facility] Comment on above: Order Comment: Order Added by Discern Expert. Performed By: #### 2 730858, 1078487, 29974347, 0891611, 81093686, 5111971 ####[address] [address] Lymphocytes/100 WBC (Bld) 2.4 % Low 14.0-50.[address] [facility] Comment on above: Order Comment: Order Added by Discern Expert. Performed By: #### 2 449622, 1398810, 92435284, 9788878, 71740284, 3355901 ####[address] [place] [place] [address] Lymphocytes/Leukocytes Auto (Bld) [Pure # fraction] 0.2 E9/L Low 1.0-4.[address] [facility] Comment on above: Order Comment: Order Added by Discern Expert. Performed By: #### 2 326576, 1050762, 31265677, 0717466, 36693350, 9348406 ####[address] [address] Monocytes/100 WBC (Bld) 5.7 % Normal 4.0-14.[address] [facility] Comment on above: Order Comment: Order Added by Discern Expert. Performed By: #### 2 532891, 7123687, 73880066, 5023437, 46398066, 6469738 ####[address] [place] [address] Monocytes/Leukocytes Auto (Bld) [Pure # fraction] 0.6 E9/L Normal 0.2-1.[address] [facility] Comment on above: Order Comment: Order Added by Discern Expert. Performed By: #### 2 824565, 1369632, 74449953, 7047141, 99912488, 4573660 ####[address] [address] Neutrophils/100 WBC (Bld) 91.9 % High 36.0-75.[address] [facility] Comment on above: Order Comment: Order Added by Discern Expert. Performed By: #### 2 085329, 9988358, 79738196, 2278035, 99651432, 3314765 ####[address] [address] Neutrophils/Leukocytes Auto (Bld) [Pure # fraction] 9.3 E9/L High 2.0-7.[address] [facility] Comment on above: Order Comment: Order Added by Discern Expert. Performed By: #### 2 548778, 6696498, 44232518, 7384681, 03536790, 8196552 ####[address] [address] CBC w/ Auto Diffon Erythrocyte distribution width (RBC) [Ratio] 19.6 % High 10.9-14.[address] [facility] Comment on above: Performed By: #### 2 096241, 8568106, 82220664, 0170441, 68016470, 7360629 ####[address] [place] [address] Hematocrit (Bld) [Volume fraction] 26.7 % Low 37.7-49.[address] [facility] Comment on above: Performed By: #### 2 354362, 5529673, 65056769, 2022797, 23784929, 2978789 ####[address] [place] [address] Hemoglobin (Bld) [Mass/Vol] 8.4 g/dL Low 13.5-17.[address] [facility] Comment on above: Performed By: #### 2 461375, 4827495, 28110772, 8604682, 27642216, 6551431 ####[facility] [address] [place] [address] MCH (RBC) [Entitic mass] 27.8 pg Normal 27.0-34.[address] [facility] Comment on above: Performed By: #### 2 813136, 6262646, 64494202, 8782701, 40995046, 0310403 ####[address] [place] [address] MCHC (RBC) [Mass/Vol] 31.6 g/dL Normal 31.4-36.0 [facility] Comment on above: Performed By: #### 2 020362, 2152652, 59387763, 4275095, 01909034, 0535750 ####[address] [address] MCV (RBC) [Entitic vol] 87.8 fL Normal 80.0-100.[address] [facility] Comment on above: Performed By: #### 2 596320, 4871793, 50537443, 5900780, 19194997, 5442390 ####[address] [address] Platelet mean volume (Bld) [Entitic vol] 8.3 fL Normal 6.4-10.[address] [facility] Comment on above: Performed By: #### 2 500594, 2641525, 85298716, 2450324, 81969145, 7918761 ####[address] [place] [address] Platelets (Bld) [#/Vol] 203.0 E9/L Normal 150.0-500.[address] [facility] Comment on above: Performed By: #### 2 487793, 6429845, 21483443, 4827030, 98779396, 2388643 ####[facility] [address] [place] [address] RBC (Bld) [#/Vol] 3.0 E12/L Low 4.3-5.[address] [facility] Comment on above: Performed By: #### 2 034112, 6748641, 48004788, 9116619, 93124744, 2650588 ####[facility] [address] [place] [address] WBC corrected for nucl RBC Auto (Bld) [#/Vol] 10.1 E9/L Normal 4.0-11.[address] [facility] Comment on above: Performed By: #### 2 570073, 6732957, 85121065, 8131906, 63761911, 8351417 ####[facility] [address] [place] [address] CHEMISTRYOrdered By: SYSTEM SYSTEM on 02-15-2023 Albumin [...] 100 mL/min/1.73 m2 Normal >=59mL/min/ 1.73 m2 [facility] Chem S Globulin (S) [Mass/Vol] 4.5 g/dL [...] CK [Catalytic activity/Vol] 71 Int._Unit/L Normal 14-[address] [facility] Comment on above: Performed By: #### 2 500953, 5959539, 82415823, 1010331, 57152574, 7019113 ####[facility] [address] [place] [address] CMPon 02-15-2023 Albumin [Mass/Vol] 2.3 g/dL Low 3.3-5.[address] [facility] Comment on above: Performed By: #### 2 673821, 2345849, 05823755, 7508442, 66514815, 2594209 ####[facility] [address] [place] [address] Albumin/Globulin (S) [Mass conc ratio] 0.5 Low 1.1-2.[address] [facility] Comment on above: Performed By: #### 2 584034, 9129191, 49416707, 5046039, 15129305, 7043765 ####[facility] [address] [place] [address] ALP [Catalytic activity/Vol] 90 Int._Unit/L Normal 21-[address] [facility] Comment on above: Performed By: #### 2 497161, 2685418, 50911329, 5916470, 68942602, 1321376 ####[facility] [address] [place] [address] ALT No additional P-5'-P [Catalytic activity/Vol] 31 Int._Unit/L Normal 6-[address] [facility] Comment on above: Performed By: #### 2 260062, 2903539, 76711030, 0098273, 70018989, 8167959 ####[facility] [address] [place] [address] AST [Catalytic activity/Vol] 35 Int._Unit/L Normal 5-[address] [facility] Comment on above: Performed By: #### 2 050231, 0042632, 28060654, 9761358, 46747279, 8719114 ####[facility] [address] [place] [address] Bilirubin [Mass/Vol] 0.6 mg/dL Normal 0.0-1.1 [facility] Comment on above: Performed By: #### 2 078115, 9057738, 11819342, 4653176, 81010966, 3377736 ####[facility] [address] [place] [address] Creatinine [Mass/Vol] 0.6 mg/dL Normal 0.5-1.3 [facility] Comment on above: Performed By: #### 2 696675, 4663582, 80937087, 5970874, 21113583, 9051513 ####[facility] [address] [place] [address] Globulin (S) [Mass/Vol] 4.5 g/dL High 1.4-4.[address] [facility] Comment on above: Performed By: #### 2 063328, 5896125, 15234473, 2327997, 72194298, 0542608 ####[facility] [address] [place] [address] Protein [Mass/Vol] 6.8 g/dL Normal 6.0-7.[address] [facility] Comment on above: Performed By: #### 2 976173, 4002459, 25393533, 5462815, 23612005, 2516332 ####[facility] [address] [place] [address] Urea nitrogen [Mass/Vol] 23 mg/dL High 5-[address] [facility] Comment on above: Performed By: #### 2 497449, 5001340, 20840669, 1230552, 11817547, 4261973 ####[facility] [address] [place] [address] Urea nitrogen/Creatinine [Mass ratio] 38 No Units High 10-[address] [facility] Comment on above: Performed By: #### 2 694532, 2625934, 86687792, 8919470, 38616782, 6143698 ####[facility] [address] [place] [address] Anion gap [Moles/Vol] 12 mmol/L Normal 6-16 [facility] Comment on above: Performed By: #### 2 609350, 4664312, 61375503, 9900659, 77272613, 0426415 ####[facility] [address] [place] [address] Calcium [Mass/Vol] 8.4 mg/dL Low 8.9-11.[address] [facility] Comment on above: Performed By: #### 2 702181, 9788980, 19372420, 4238248, 24422210, 3676756 ####[facility] [address] [place] [address] Chloride [Moles/Vol] 97 mmol/L Low 101-111 [address] [facility] Comment on above: Performed By: #### 2 920625, 2424921, 94091838, 3983786, 69823481, 2095006 ####[facility] [address] [place] [address] CO2 [Moles/Vol] 23 mmol/L Normal 21-[address] [facility] Comment on above: Performed By: #### 2 128188, 3038563, 78132745, 9631327, 80523104, 6244187 ####[facility] [address] [place] [address] Glucose [Mass/Vol] 166 mg/dL Normal 55-[address] [facility] Comment on above: Result Comment: If t his glucose result represents a fasting glucose, interpretation should refer to the following reference range: 55-99 mg/dL Performed By: #### 2 969322, 6408382, 90549247, 3391991, 76273251, 5189136 ####[facility] [address] [place] [address] Potassium [Moles/Vol] 3.9 mmol/L Normal 3.5-5.3 [facility] Comment on above: Performed By: #### 2 960564, 3196170, 26661322, 2413594, 31665386, 3486379 ####[facility] [address] [place] [address] Sodium [Moles/Vol] 128 mmol/L Low 135-[address] [facility] Comment on above: Performed By: #### 2 547747, 5258671, 39767578, 9722080, 37272781, 3808913 ####[facility] [address] [place] [address] COAGULATIONOrdered By: Yang Ayala on 02-15-2023 aPTT Coag (PPP) [Time] 37.7 s High 25.1 - 36.5 second(s) [facility] Auto Coag INR Coag (PPP) [Relative time] 1.5 {INR} Invalid Interpretation Code [facility] Auto Coag PT Coag (PPP) [Time] 17.2 s High 9.4 - 1 2.5 second(s) [facility] Auto Coag CTA Abd Aorto-bilat/ iliofem oral runoffon 02-15-2023 CTA Abd Aorto-bilat/ iliofemoral runoff Normal [facility] Consent for Treatmenton Consent for Treatment [id number]#1.00CD:[address] [facility] Discharge Instructionson Discharge Instructions [id number]#1.00CD:[address] [facility] ED Clinical Summaryon 2022 ED Clinical Summary Normal [facility] ED Note-Physicianon 02-16-20 ED Note-Physician Normal [facility] Comment on above: Result Comment: Elec tronically Signed By: Brennon Cruz DO\.br\Date and Time Signed: 02/15/23 16:50 EDT ED Patient Education Noteon 02-15-2023 ED Patient Education Note Normal [facility] ED Patient Summaryon 023 ED Patient Summary Normal [facility] HEMATOLOGYOrdered By: SYSTEM SYSTEM on 02-15-2023 Basophils/100 [...] 0.6 E9/L Normal 0.2 - 1.0 E9/L [facility] Neutrophils/100 WBC (Bld) 91.9 % High 36.0 - 75.0 % [facility] HemeAutoSS Neutrophils/Leukocytes Auto (Bld) [Pure # fraction] 9.3 E9/L High 2.0 - 7.5 E9/L [facility] HemeAutoSS HEMATOLOGYOrdered By: Abigail Foote on 02-15-2023 Erythrocyte distribution width (RBC) [Ratio] 19.6 % High 10.9 - 14.2 % [facility] Hematocrit (Bld) [Volume fraction] 26.7 % Low 37.7 - 49.0 % [facility] Hemoglobin (Bld) [Mass/Vol] 8.4 g/dL Low 13.5 - 17.5 gm/dL [facility] MCH (RBC) [Entitic mass] 27.8 pg Normal 27.0 - 34.0 pg [facility] MCHC (RBC) [Mass/Vol] 31.6 g/dL Normal 31.4 - 36.0 gm/dL [facility] MCV (RBC) [Entitic vol] 87.8 fL Normal 80.0 - 100.0 fL [facility] HemeAutoSS Platelet mean volume (Bld) [Entitic vol] 8.3 fL Normal 6.4 - 10.8 fL [facility] HemeAutoSS Platelets (Bld) [#/Vol] 203.0 E9/L Normal 150.0 - 500.0 E9/L [facility] RBC (Bld) [#/Vol] 3.0 E12/L Low 4.3 - 5.9 E12/L [facility] WBC corrected for nucl RBC Auto (Bld) [#/Vol] 10.1 E9/L Normal 4.0 - 11.0 E9/L [facility] HemeAutoSS Outside Labson 02-15-2023 Outside Labs [id number]#1.00CD:[address] [facility] Outside Radiologyon 02-16-20 Outside Radiology [id number]#1.00CD:[address] [facility] PT & PTTon 02-15-2023 aPTT Coag (PPP) [Time] 37.7 second(s) High 25.1-36.[address] [facility] Comment on above: Result Comment: Para meter [...] the same coagulation reagent and instrumentation as [facility]. Currently there are no coagulation studies available worldwide for children to 14 days, and no normal ranges. Heparin therapeutic range (represented by Anti-Factor Xa activity of 0.2 - 0.4 U/mL) corresponds to PTT of 56.6 - 109.0 sec. Performed By: #### 2 490544, 5453701, 53896771, 4115347, 75626432, 3660934 ####[facility] [address] [place] [address] INR Coag (PPP) [Relative time] 1.5 {INR} Invalid Interpretation Code [facility] Comment on above: Result Comment: INR results are specifically intended to assess patients stabilized on long-term Anticoagulation therapy suggested INR?s ?Less Intensive Anticoagulation? 2.0 ? 3.0Conventional Range 3.0 ? 4.5 Performed By: #### 2 290494, 1787937, 16318490, 6118354, 78850227, 1833046 ####[facility] [address] [place] [address] PT Coag (PPP) [Time] 17.2 second(s) High 9.4-12.[address] [facility] Comment on above: Result Comment: 15 d [...] the same coagulation reagent and instrumentation as [facility]. Currently there are no coagulation studies available worldwide for children to 14 days, and no normal ranges. Performed By: #### 2 804239, 5860844, 11111347, 3253880, 15507895, 3884704 ####[facility] [address] [place] [address] Physician Orderon 02-15-2023 Physician Order [id number]#1.00CD:[address] [facility] Physician Order [id number]#1.00CD:[address] [facility] eGFRon 02-15-2023 GFR/1.73 sq M.predicted among non-blacks MDRD (S/P/Bld) [Vol rate/Area] 100 mL/min/1.73 m2 Normal >=[address] [facility] Comment on above: Order Comment: Order added by Discern Expert. Result Comment: Undercoat Sprayer alen kidney disease could be indicated at eGFR's of less than 60 mL/min/1.73m2. Kidney failure is indicated at less than 15 mL/min/1.73m2. Performed By: #### 2 952567, 6406905, 85671108, 4571948, 69695425, 4175051 ####[facility] [address] [place] [address] Outside Recordson 02-14-2023 Outside Records [id number]#1.00CD:[address] [facility] Outside Records [id number]#1.00CD:[address] [facility] Physician Orderon 02-14-2023 Physician Order [id number]#1.00CD:[address] [facility] Consent for Treatmenton 05 Consent for Treatment [id number]#1.00CD:[address] [facility] Heart and Vascular Office/Cl inic Noteon 02-10-2023 Heart and Vascular Office/Clinic Note Normal [facility] Comment on above: Result Comment: Elec tronically Signed By: Vickey WISE, Erwin FOtilia\.br\Date and Time Signed: 02/10/23 12:32 EDT CBC W MANUAL DIFFon 02-10-20 ANISOCYTOSIS 1+ Normal [facility] Comment on above: Performed By: #### C BCMAN #### [facility] [address] [place] [address] Dr. Joselyn Coffey ATYPICAL LYMPH # Normal [facility] Comment on above: Performed By: #### C BCMAN #### [facility] [address] [place] [address] Dr. Joselyn Coffey ATYPICAL LYMPH % Normal [facility] Comment on above: Performed By: #### C BCMAN #### [facility] [address] [place] [address] Dr. Joselyn Coffey BAND # Normal 0.0-0.3 [facility] Comment on above: Performed By: #### C BCMAN #### [facility] [address] [address] [address] Joselyn Coffey BAND % Normal 0-5 [facility] Comment on above: Performed By: #### C BCMAN #### [facility] [address] [place] [address] Dr. Joselyn Coffey BASOM # 0.00 103/ul Normal 0.00-0.10 [facility] Comment on above: Performed By: #### C BCMAN #### [facility] [address] [place] [address] Dr. Joselyn Coffey BASOM % 0.0 % Critically low 0.2-2.0 [facility] Comment on above: Performed By: #### C BCMAN #### [facility] [address] [place] [address] Dr. Joseyln Coffey BLAST # Normal [facility] Comment on above: Performed By: #### C BCMAN #### [facility] [address] [place] [address] Dr. Joselyn Coffey BLAST % Normal [facility] Comment on above: Performed By: #### C BCMAN #### [facility] [address] [place] [address] Dr. Joselyn Coffey CORRECTED WBC Normal 4.0-11.0 [facility] Comment on above: Performed By: #### C BCMAN #### [facility] [address] [place] [address] Dr. Joselyn Coffey EOS # 0.00 103/ul Normal 0.00-0.70 [facility] Comment on above: Performed By: #### C BCMAN #### [facility] [address] [place] [address] Dr. Joselyn Coffey EOS% 0.0 % Critically low 0.9-7.0 [facility] Comment on above: Performed By: #### C BCMAN #### [facility] [address] [place] [address] Dr. Joselyn Coffey HCT 26.7 % Critically low 42.0-54.0 [facility] Comment on above: Performed By: #### C BCMAN #### [facility] [address] [place] [address] Dr. Joselyn Coffey HGB 8.3 g/dl Critically low 14.0-18.0 [facility] Comment on above: Performed By: #### C BCMAN #### [facility] [address] [place] [address] Dr. Joselyn Coffey HYPOCHROMASIA 2+ Normal [facility] Comment on above: Performed By: #### C BCDEV #### [facility] [address] [place] [address] Dr. Joselyn Coffey LYMPHM # 0.17 103/ul Critically low 1.20-3.80 [facility] Comment on above: Performed By: #### C ESTHELA #### [facility] [address] [place] [address] Dr. Joselyn Coffey LYMPHM% 3.0 % Critically low 20.5-60.0 [facility] Comment on above: Performed By: #### C ESTHELA #### [facility] [address] [place] [address] Dr. Joselyn Coffey MCH 28.3 pg Normal 25.9-34.0 [facility] Comment on above: Performed By: #### C ESTHELA #### [facility] [address] [place] [address] Dr. Joselyn Coffey MCHC 31.1 g/dl Normal 29.9-35.2 [facility] Comment on above: Performed By: #### Sammy PROCTOR #### [facility] [address] [place] [address] Dr. Joselyn Coffey MCV 91.1 fL Normal 80.0-94.0 [facility] Comment on above: Performed By: #### Sammy PROCTOR #### [facility] [address] [place] [address] Dr. Joselyn Coffey METAMYELOCYTE # Normal [facility] Comment on above: Performed By: #### C ESTHELA #### [facility] [address] [place] [address] Dr. Joselyn Coffey METAMYELOCYTE % Normal [facility] Comment on above: Performed By: #### C ESTHELA #### [facility] [address] [place] [address] Dr. Joselyn Coffey MONOM# 0.46 103/ul Normal 0.30-0.80 [facility] Comment on above: Performed By: #### C ESTHELA #### [facility] [address] [place] [address] Dr. Joselyn Coffey MONOM% 8.0 % Normal 1.7-12.0 [facility] Comment on above: Performed By: #### C ESTHELA #### [facility] [address] [address] [address] Joselyn Coffey MPV 11.6 fL Normal 9.5-13.5 [facility] Comment on above: Performed By: #### C ESTHELA #### [facility] [address] [place] [address] Dr. Joselyn Coffey MYELOCYTE # Normal [facility] Comment on above: Performed By: #### C ESTHELA #### [facility] [address] [place] [address] Dr. Joselyn Coffey MYELOCYTE % Normal [facility] Comment on above: Performed By: #### C ESTHELA #### [facility] [address] [place] [address] Dr. Joselyn Coffey NRBC Normal [facility] Comment on above: Performed By: #### C ESTHELA #### [facility] [address] [place] [address] Dr. Joselyn Coffey PLT 161 103/ul Normal 150-450 [facility] Comment on above: Performed By: #### C ESTHELA #### [facility] [address] [place] [address] Dr. Joselyn Coffey RBC 2.93 106/ul Critically low 4.70-6.10 [facility] Comment on above: Performed By: #### C ESTHELA #### [facility] [address] [place] [address] Dr. Joselyn Coffey RDW 18.8 % Critically high 11.0-15.0 [facility] Comment on above: Performed By: #### C ESTHELA #### [facility] [address] [place] [address] Dr. Joselyn Coffey SEG # 5.16 103/ul Normal 1.40-6.50 [facility] Comment on above: Performed By: #### C ESTHELA #### [facility] [address] [place] [address] Dr. Joselyn Coffey SEG % 89.0 % Critically high 43.0-75.0 [facility] Comment on above: Performed By: #### C ESTHELA #### [facility] [address] [place] [address] Dr. Joselyn Coffey WBC 5.8 103/ul Normal 4.0-11.0 [facility] Comment on above: Performed By: #### C BCMAN #### [facility] [address] [address] [address] Joselyn Coffey PROF CHEM 8 (BAS METB)on Anion gap [Moles/Vol] 8.3 mmol/L Normal [facility] Comment on above: Performed By: #### B MP #### [facility] [address] [address] [address] Joselyn Coffey Calcium [Mass/Vol] 8.3 mg/dL Critically low 8.5-10.1 [facility] Comment on above: Performed By: #### B MP #### [facility] [address] [address] [address] Joselyn Coffey Chloride [Moles/Vol] 101 mmol/L Normal 98-107 [facility] Comment on above: Performed By: #### B MP #### [facility] [address] [place] [address] Dr. Joselyn Coffey CO2 [Moles/Vol] 27.7 mmol/L Normal 21.0-32.0 [facility] Comment on above: Performed By: #### B MP #### [facility] [address] [address] [address] Joselyn Coffey Creatinine [Mass/Vol] 0.60 mg/dL Critically low 0.70-1.30 [facility] Comment on above: Performed By: #### B MP #### [facility] [address] [place] [address] Dr. Joselyn Coffey EGFR-AF GUAMANIAN >60 Normal >=60 [facility] Comment on above: Performed By: #### B MP #### [facility] [address] [address] [address] Joselyn Coffey EGFR-NON AF GUAMANIAN >60 Normal >=60 [facility] Comment on above: Performed By: #### B MP #### [facility] [address] [place] [address] Dr. Joselyn Coffey Glucose [Mass/Vol] 188 mg/dL Critically high 74-106 T [facility] Comment on above: Performed By: #### B MP #### [facility] [address] [address] [address] Joselyn Coffey Potassium [Moles/Vol] 4.0 mmol/L Normal 3.5-5.1 [facility] Comment on above: Performed By: #### B MP #### [facility] [address] [address] [address] Joselyn Coffey Sodium [Moles/Vol] 133 mmol/L Critically low 136-145 [facility] Comment on above: Performed By: #### B MP #### [facility] [address] [place] [address] Dr. Joselyn Coffey Urea nitrogen [Mass/Vol] 13.0 mg/dL Normal 7.0-18.0 [facility] Comment on above: Performed By: #### B MP #### [facility] [address] [place] [address] Dr. Joselyn Coffey Urea nitrogen/Creatinine [Mass ratio] 21.7 mg/mg Normal [facility] Comment on above: Performed By: #### B MP #### [facility] [address] [place] [address] Dr. Joselyn Coffey PROTIMEon 02-09-2023 INR Coag (PPP) [Relative time] 1.12 {INR} Normal [facility] Comment on above: Performed By: #### C ESTHELA #### [facility] [address] [place] [address] Dr. Joselyn Coffey INR GUIDELINES SEE BELOW Normal [facility] Comment on above: Result Comment: SNOW RED INR: 2.0 - 3.0 CONDITIONS NOT LISTED BELOW 2.5 - 3.5 FOR PROSTHETIC HEART VALVE REPLACEMENT 2.5 - 3.5 RECURRENT THROMBOSIS Performed By: #### C ESTHELA #### [facility] [address] [place] [address] Dr. Joselyn Coffey PT Coag (PPP) [Time] 11.8 s Critically high 9.0-11.6 [facility] Comment on above: Performed By: #### C ESTHELA #### [facility] [address] [place], [place] [address] Dr. Joselyn Coffey PTTon 02-09-2023 aPTT Coag (Bld) [Time] 37.3 s Critically high 22.3-36. 2 [facility] Comment on above: Performed By: #### C BCMAN #### [facility] [address] [address] [address] Joselyn Coffey US ARTERY LEG RTon US ARTERY LEG RT EXAMINATION: US TUNG [...] by: MARIO CULLEN Date: 2023-02-09 14:17 Normal [facility] XR CHEST 1 Von 02-09-2023 XR CHEST 1 V EXAM: XR CHEST 1 V HISTORY: Asthenia COMPARISON: 04/04/2021 TECHNIQUE: Single view of the chest FINDINGS: Heart size normal. No focal consolidation, pleural effusion, pulmonary congestion or pneumothorax. Sternotomy wires. Right-sided central line terminating in the lower SVC region. IMPRESSION: No acute findings. Electronically authenticated by: DONALD LIMA Date: 2023-02-09 14:18 Normal [facility] 30on 02-03-2023 30 Normal [facility] 30 The patient is Moder ately Stable - Low risk of patient condition declining or worsening The patient's goals for the shift include comfort The clinical goals for the shift include sleep Normal [facility] BASIC METABOLIC PANELon 01-09 Anion gap [Moles/Vol] 8 mmol/L Normal 7-20 [facility] [place] Comment on above: Performed By: #### L [id number] ####[facility] ([facility])[address] [place] [address] Calcium [Mass/Vol] 7.3 mg/dL Low 8.6-10.3 [facility] Comment on above: Performed By: #### L [id number] ####[facility] ([facility])[address] [place] [address] Chloride [Moles/Vol] 104 mmol/L Normal 98-107 [facility] Comment on above: Performed By: #### L [id number] ####[facility] [place] [address] CO2 [Moles/Vol] 25 mmol/L Normal 21-31 [facility] Comment on above: Performed By: #### L [id number] ####[facility] ([facility])[address] [place] [address] Creatinine [Mass/Vol] 0.48 mg/dL Low 0.70-1.30 [facility] Comment on above: Performed By: #### L [id number] ####[facility] [place] [address] GLOMERULAR FILTRATION RATE ML/MIN/1.73 SQ M.PREDICTED 107.0 mL/min/1.73m*2 Normal >60.0 [facility] Comment on above: Result Comment: The [facility]???s estimated glomerular filtration rate (eGFR) will no [...] of individuals. Performed By: #### L [id number] ####[facility] [place] [address] Glucose [Mass/Vol] 103 mg/dL High 70-100 [facility] Comment on above: Performed By: #### L [id number] ####[facility] ([facility])[address] [place] [address] Potassium [Moles/Vol] 3.3 mmol/L Low 3.5-5.1 [facility] Comment on above: Performed By: #### L [id number] ####[facility] ([facility])[address] [place] [address] Sodium [Moles/Vol] 134 mmol/L Low 136-145 [facility] Comment on above: Performed By: #### L [id number] ####[facility] ([facility])[address] [place] [address] Urea nitrogen [Mass/Vol] 8 mg/dL Normal 7-25 [facility] Comment on above: Performed By: #### L [id number] ####[facility] ([facility])[address] [place] [address] UREA NITROGEN/CREATININE (MASS RATIO) IN SER/PLAS 16.7 Normal [facility] Comment on above: Performed By: #### L [id number] ####[facility] ([facility])[address] [place] [address] CBCon 02-03-2023 Erythrocyte distribution width (RBC) [Ratio] 17.3 % High 11.5-15.0 [facility] Comment on above: Performed By: #### L [id number] ####[facility] ([facility])[address] [place] [address] ERYTHROCYTE MEAN CORPUSCULAR HEMOGLOBIN CONCENTRATION (G/DL) BY AUTOMATED 32.4 g/dL Normal 32.0-35.0 [facility] Comment on above: Performed By: #### L [id number] ####[facility] ([facility])[address] [place] [address] Hematocrit (Bld) [Volume fraction] 25.0 % Low 39.0-55.0 [facility] Comment on above: Performed By: #### L [id number] ####[facility] ([facility])[address] [place] [address] Hemoglobin (Bld) [Mass/Vol] 8.1 g/dL Low 13.0-17.0 [facility] Comment on above: Performed By: #### L [id number] ####[facility] ([facility])[address] [place] [address] IMMATURE PLATELET FRACTION % 9.6 % High 0.8-6.3 [facility] Comment on above: Performed By: #### L [id number] ####[facility] ([facility])[address] [place] [address] MCH (RBC) [Entitic mass] 28.9 pg Normal 27.0-33.0 [facility] Comment on above: Performed By: #### L [id number] ####[facility] ([facility])[address] [place] [address] MCV (RBC) [Entitic vol] 89.3 fL Normal 82.0-98.0 [facility] Comment on above: Performed By: #### L [id number] ####[facility] ([facility])[address] [place] [address] PLATELETS (10*3/UL) IN BLOOD AUTOMATED COUNT 91 10*3/uL Low 150-400 [facility] Comment on above: Performed By: #### L [id number] ####[facility] ([facility])[address] [place] [address] RBC (Bld) [#/Vol] 2.80 10*6/uL Low 4.20-5.70 [facility] Comment on above: Performed By: #### L [id number] ####[facility] ([facility])[address] [place] [address] WBC (Bld) [#/Vol] 4.44 10*3/uL Normal 4.00-10.60 [facility] Comment on above: Performed By: #### L [id number] ####[facility] [place] [address] DSon 02-03-2023 DS Normal [facility] PHOSPHORUSon 02-03-2023 Magnesium [Mass/Vol] 2.3 mg/dL Low 2.5-5.0 [facility] Comment on above: Performed By: #### L [id number] ####[facility] ([facility])[address] [place] [address] 30on 02-02-2023 30 Normal [facility] BASIC METABOLIC PANELon 01-09 Anion gap [Moles/Vol] 10 mmol/L Normal 7-20 [facility] Comment on above: Performed By: #### L [id number] ####[facility] [place] [address] Calcium [Mass/Vol] 7.4 mg/dL Low 8.6-10.3 [facility] Comment on above: Performed By: #### L [id number] ####[facility] [place] [address] Chloride [Moles/Vol] 106 mmol/L Normal 98-107 [facility] Comment on above: Performed By: #### L [id number] ####[facility] ([facility])[address] [place] [address] CO2 [Moles/Vol] 22 mmol/L Normal 21-31 [facility] Comment on above: Performed By: #### L [id number] ####[facility] ([facility])[address] [place] [address] Creatinine [Mass/Vol] 0.60 mg/dL Low 0.70-1.30 [facility] Comment on above: Performed By: #### L [id number] ####[facility] ([facility])[address] [place] [address] GLOMERULAR FILTRATION RATE ML/MIN/1.73 SQ M.PREDICTED 100.0 mL/min/1.73m*2 Normal >60.0 [facility] Comment on above: Result Comment: The [facility]???s estimated glomerular filtration rate (eGFR) will no [...] of individuals. Performed By: #### L [id number] ####[facility] ([facility])[address] [facility] [place] [address] Glucose [Mass/Vol] 105 mg/dL High 70-100 [facility] Comment on above: Performed By: #### L [id number] ####[facility] ([facility])[address] [facility] [place] [address] Potassium [Moles/Vol] 3.9 mmol/L Normal 3.5-5.1 [facility] Comment on above: Performed By: #### L [id number] ####[facility] ([facility])[address] [facility] [place] [address] Sodium [Moles/Vol] 134 mmol/L Low 136-145 [facility] Comment on above: Performed By: #### L [id number] ####[facility] ([facility])[address] [facility] [place] [address] Urea nitrogen [Mass/Vol] 9 mg/dL Normal 7-25 [facility] Comment on above: Performed By: #### L [id number] ####[facility] ([facility])[address] [facility] [place] [address] UREA NITROGEN/CREATININE (MASS RATIO) IN SER/PLAS 15.0 Normal [facility] Comment on above: Performed By: #### L [id number] ####[facility] ([facility])[address] [facility] [place] [address] CBCon 02-02-2023 Erythrocyte distribution width (RBC) [Ratio] 16.9 % High 11.5-15.0 [facility] Comment on above: Performed By: #### L [id number] ####[facility] [place] [address] ERYTHROCYTE MEAN CORPUSCULAR HEMOGLOBIN CONCENTRATION (G/DL) BY AUTOMATED 31.5 g/dL Low 32.0-35.0 [facility] Comment on above: Performed By: #### L [id number] ####[facility] [place] [address] Hematocrit (Bld) [Volume fraction] 31.7 % Low 39.0-55.0 [facility] Comment on above: Performed By: #### L [id number] ####[facility] ([facility])[address] [place] [address] Hemoglobin (Bld) [Mass/Vol] 10.0 g/dL Low 13.0-17.0 [facility] Comment on above: Performed By: #### L [id number] ####[facility] ([facility])[address] [place] [address] MCH (RBC) [Entitic mass] 27.9 pg Normal 27.0-33.0 [facility] Comment on above: Performed By: #### L [id number] ####[facility] ([facility])[address] [place] [address] MCV (RBC) [Entitic vol] 88.3 fL Normal 82.0-98.0 [facility] Comment on above: Performed By: #### L [id number] ####[facility] ([facility])[address] [place] [address] PLATELETS (10*3/UL) IN BLOOD AUTOMATED COUNT 124 10*3/uL Low 150-400 [facility] Comment on above: Performed By: #### L [id number] ####[facility] [place] [address] RBC (Bld) [#/Vol] 3.59 10*6/uL Low 4.20-5.70 [facility] Comment on above: Performed By: #### L [id number] ####[facility] [place] [address] WBC (Bld) [#/Vol] 8.67 10*3/uL Normal 4.00-10.60 [facility] Comment on above: Performed By: #### L [id number] ####[facility] ([facility])[address] [place] [address] HEPARIN LEVELon 02-02-2023 HEPARIN UNFRACTIONATED (U/ML) IN PPP BY CHROMOGENIC METHOD 0.48 IU/mL Normal 0.3-0.7 [facility] Comment on above: Result Comment: Davidson roxaban and Apixaban will interfere with the anti Xa assay used to monitor UFH and LMWH. Performed By: #### L [id number] ####[facility] ([facility])[address] [place] [address] HEPARIN UNFRACTIONATED (U/ML) IN PPP BY CHROMOGENIC METHOD 0.38 IU/mL Normal 0.3-0.7 [facility] Comment on above: Result Comment: Davidson roxaban and Apixaban will interfere with the anti Xa assay used to monitor UFH and LMWH. Performed By: #### L [id number] ####[facility] ([facility])[address] [place] [address] HEPARIN UNFRACTIONATED (U/ML) IN PPP BY CHROMOGENIC METHOD 0.28 IU/mL Low 0.3-0.7 [facility] Comment on above: Order Comment: Check anti-Xa level every 6 hours while on heparin infusion, or per protocol. Result Comment: Masha roxaban and Apixaban will interfere with the anti Xa assay used to monitor UFH and LMWH. Performed By: #### L [id number] ####[facility] ([facility])[address] [place] [address] MAGNESIUMon 02-02-2023 Magnesium [Mass/Vol] 1.9 mg/dL Normal 1.9-2.7 [facility] Comment on above: Performed By: #### L [id number] ####[facility] [place] [address] PHOSPHORUSon 02-02-2023 Magnesium [Mass/Vol] 3.2 mg/dL Normal 2.5-5.0 [facility] Comment on above: Performed By: #### L [id number] ####[facility] ([facility])[address] [place] [address] APTTon 02-01-2023 ACTIVATED PARTIAL THROMBOPLASTIN TIME IN PPP BY COAGULATION ASSAY 57.8 Seconds High 25.0-35.0 [facility] Comment on above: Order Comment: Basel ine aPTT before initiating heparin infusion. Result Comment: Clin ical significance of the APTT is questionable in the presence of heparin. Performed By: #### L [id number] ####[facility] ([facility])[address] [place] [address] BASIC METABOLIC PANELon 01-09 Anion gap [Moles/Vol] 9 mmol/L Normal 7-20 [facility] Comment on above: Performed By: #### L [id number] ####[facility] ([facility])[address] [place] [address] Calcium [Mass/Vol] 7.5 mg/dL Low 8.6-10.3 [facility] Comment on above: Performed By: #### L [id number] ####[facility] ([facility])[address] [place] [address] Chloride [Moles/Vol] 107 mmol/L Normal 98-107 [facility] Comment on above: Performed By: #### L [id number] ####[facility] [place] [address] CO2 [Moles/Vol] 20 mmol/L Low 21-31 [facility] Comment on above: Performed By: #### L [id number] ####[facility] [place] [address] Creatinine [Mass/Vol] 0.56 mg/dL Low 0.70-1.30 [facility] Comment on above: Performed By: #### L [id number] ####[facility] [place] [address] GLOMERULAR FILTRATION RATE ML/MIN/1.73 SQ M.PREDICTED 102.2 mL/min/1.73m*2 Normal >60.0 [facility] Comment on above: Result Comment: The [facility]???s estimated glomerular filtration rate (eGFR) will no [...] of individuals. Performed By: #### L [id number] ####[facility] ([facility])[address] [place] [address] Glucose [Mass/Vol] 84 mg/dL Normal 70-100 [facility] Comment on above: Performed By: #### L [id number] ####[facility] ([facility])[address] [place] [address] Potassium [Moles/Vol] 3.4 mmol/L Low 3.5-5.1 [facility] Comment on above: Performed By: #### L [id number] ####[facility] ([facility])[address] [place] [address] Sodium [Moles/Vol] 133 mmol/L Low 136-145 [facility] Comment on above: Performed By: #### L [id number] ####[facility] ([facility])[address] [place] [address] Urea nitrogen [Mass/Vol] 9 mg/dL Normal 7-25 [facility] Comment on above: Performed By: #### L [id number] ####[facility] ([facility])[address] [place] [address] UREA NITROGEN/CREATININE (MASS RATIO) IN SER/PLAS 16.1 Normal [facility] Comment on above: Performed By: #### L [id number] ####[facility] [place] [address] BLOOD CULTUREon 02-01-2023 Bacteria identified Cx Nom (Bld) No growth at 5 days Normal [facility] Comment on above: Performed By: #### L [id number] ####[facility] ([facility])[address] [place] [address] Order Comment: From a different site than #1. CBCon 02-01-2023 Erythrocyte distribution width (RBC) [Ratio] 16.3 % High 11.5-15.0 [facility] Comment on above: Performed By: #### L [id number] ####[facility] ([facility])[address] [place] [address] ERYTHROCYTE MEAN CORPUSCULAR HEMOGLOBIN CONCENTRATION (G/DL) BY AUTOMATED 32.6 g/dL Normal 32.0-35.0 [facility] Comment on above: Performed By: #### L [id number] ####[facility] ([facility])[address] [place] [address] Hematocrit (Bld) [Volume fraction] 25.8 % Low 39.0-55.0 [facility] Comment on above: Performed By: #### L [id number] ####[facility] ([facility])[address] [place] [address] Hemoglobin (Bld) [Mass/Vol] 8.4 g/dL Low 13.0-17.0 [facility] Comment on above: Performed By: #### L [id number] ####[facility] ([facility])[address] [place] [address] IMMATURE PLATELET FRACTION % 10.2 % High 0.8-6.3 [facility] Comment on above: Performed By: #### L [id number] ####[facility] ([facility])[address] [place] [address] MCH (RBC) [Entitic mass] 28.3 pg Normal 27.0-33.0 [facility] Comment on above: Performed By: #### L [id number] ####[facility] ([facility])[address] [place] [address] MCV (RBC) [Entitic vol] 86.9 fL Normal 82.0-98.0 [facility] Comment on above: Performed By: #### L [id number] ####[facility] ([facility])[address] [place] [address] PLATELETS (10*3/UL) IN BLOOD AUTOMATED COUNT 89 10*3/uL Low 150-400 [facility] Comment on above: Result Comment: P=85 , 1D Performed By: #### L [id number] ####[facility] ([facility])[address] [place] [address] RBC (Bld) [#/Vol] 2.97 10*6/uL Low 4.20-5.70 [facility] Comment on above: Performed By: #### L [id number] ####[facility] ([facility])[address] [place] [address] WBC (Bld) [#/Vol] 5.04 10*3/uL Normal 4.00-10.60 [facility] Comment on above: Performed By: #### L [id number] ####[facility] ([facility])[address] [place] [address] CKon 02-01-2023 CREATINE KINASE (U/L) IN SER/PLAS 36.0 U/L Normal 30.0-223.0 [facility] Comment on above: Performed By: #### L [id number] ####[facility] ([facility])[address] [place] [address] HEPARIN LEVELon 02-01-2023 HEPARIN UNFRACTIONATED (U/ML) IN PPP BY CHROMOGENIC METHOD 0.16 IU/mL Invalid Interpretation Code 0.3-0.7 [facility] Comment on above: Result Comment: Davidson roxaban and Apixaban will interfere with the anti Xa assay used to monitor UFH and LMWH. Performed By: #### L [id number] ####[facility] ([facility])[address] [place] [address] MAGNESIUMon 02-01-2023 Magnesium [Mass/Vol] 1.7 mg/dL Low 1.9-2.7 [facility] Comment on above: Performed By: #### L [id number] ####[facility] ([facility])[address] [place] [address] PHOSPHORUSon 02-01-2023 Magnesium [Mass/Vol] 2.2 mg/dL Low 2.5-5.0 [facility] Comment on above: Performed By: #### L [id number] ####[facility] ([facility])[address] [place] [address] POCT GLUCOSE METER UNSOLICIT ED RESULTSon 02-01-2023 Glucose [Mass/Vol] 119 mg/dL High 70-105 [facility] Comment on above: Result Comment: amur tad Performed By: #### L [id number] ####[facility] ([facility])[address] [place] [address] Glucose [Mass/Vol] 125 mg/dL High 70-105 [facility] Comment on above: Result Comment: rbar ero Performed By: #### L [id number] ####[facility] ([facility])[address] [place] [address] Glucose [Mass/Vol] 102 mg/dL Normal 70-105 [facility] Comment on above: Result Comment: [id number] Performed By: #### L [id number] ####[facility] ([facility])[address] [place] [address] 30on 01-31-2023 30 24- POD2 groin wou nd exploration, electrolyte replacement today, had small drop in hgb to 7.2, 1 U of PRBC to be transfused, [place] in place on groin. has ptot orders, awaiting their recs, vanc and zosyn for infx coverage, possible tx out of icu today. CB Normal [facility] BASIC METABOLIC PANELon 01-09 Anion gap [Moles/Vol] 7 mmol/L Normal 7-20 [facility] Comment on above: Performed By: #### L [id number] ####[facility] ([facility])[address] [place] [address] Calcium [Mass/Vol] 7.1 mg/dL Low 8.6-10.3 [facility] Comment on above: Performed By: #### L [id number] ####[facility] ([facility])[address] [place] [address] Chloride [Moles/Vol] 109 mmol/L High 98-107 [facility] Comment on above: Performed By: #### L [id number] ####[facility] ([facility])[address] [place] [address] CO2 [Moles/Vol] 22 mmol/L Normal 21-31 [facility] Comment on above: Performed By: #### L [id number] ####[facility] ([facility])[address] [place] [address] Creatinine [Mass/Vol] 0.56 mg/dL Low 0.70-1.30 [facility] Comment on above: Performed By: #### L [id number] ####[facility] [place] [address] GLOMERULAR FILTRATION RATE ML/MIN/1.73 SQ M.PREDICTED 102.2 mL/min/1.73m*2 Normal >60.0 [facility] Comment on above: Result Comment: The [facility]???s estimated glomerular filtration rate (eGFR) will no [...] of individuals. Performed By: #### L [id number] ####[facility] ([facility])[address] [place] [address] Glucose [Mass/Vol] 100 mg/dL Normal 70-100 [facility] Comment on above: Performed By: #### L [id number] ####[facility] ([facility])[address] [place] [address] Potassium [Moles/Vol] 3.3 mmol/L Low 3.5-5.1 [facility] Comment on above: Performed By: #### L [id number] ####[facility] ([facility])[address] [place] [address] Sodium [Moles/Vol] 135 mmol/L Low 136-145 [facility] Comment on above: Performed By: #### L [id number] ####[facility] ([facility])[address] [place] [address] Urea nitrogen [Mass/Vol] 8 mg/dL Normal 7-25 [facility] Comment on above: Performed By: #### L [id number] ####[facility] ([facility])[address] [place] [address] UREA NITROGEN/CREATININE (MASS RATIO) IN SER/PLAS 14.3 Normal [facility] Comment on above: Performed By: #### L [id number] ####[facility] ([facility])[address] [place] [address] [facility]Con 01-31-2023 Erythrocyte distribution width (RBC) [Ratio] 16.4 % High 11.5-15.0 [facility] Comment on above: Performed By: #### L [id number] ####[facility] ([facility])[address] [place] [address] ERYTHROCYTE MEAN CORPUSCULAR HEMOGLOBIN CONCENTRATION (G/DL) BY AUTOMATED 32.4 g/dL Normal 32.0-35.0 [facility] Comment on above: Performed By: #### L [id number] ####[facility] ([facility])[address] [place] [address] Hematocrit (Bld) [Volume fraction] 22.2 % Low 39.0-55.0 [facility] Comment on above: Performed By: #### L [id number] ####[facility] ([facility] [place] [address] Hemoglobin (Bld) [Mass/Vol] 7.2 g/dL Low 13.0-17.0 [facility] Comment on above: Performed By: #### L [id number] ####[facility] ([facility] [place] [address] IMMATURE PLATELET FRACTION % 11.0 % High 0.8-6.3 [facility] Comment on above: Performed By: #### L [id number] ####[facility] ([facility])[address] [place] [address] MCH (RBC) [Entitic mass] 27.6 pg Normal 27.0-33.0 [facility] Comment on above: Performed By: #### L [id number] ####[facility] ([facility])[address] [place] [address] MCV (RBC) [Entitic vol] 85.1 fL Normal 82.0-98.0 [facility] Comment on above: Performed By: #### L [id number] ####[facility] ([facility])[address], [place] [address] PLATELETS (10*3/UL) IN BLOOD AUTOMATED COUNT 85 10*3/uL Low 150-400 [facility] Comment on above: Result Comment: Last plt 79 1d Performed By: #### L [id number] ####[facility] ([facility])[address], [place] [address] RBC (Bld) [#/Vol] 2.61 10*6/uL Low 4.20-5.70 [facility] Comment on above: Performed By: #### L [id number] ####[facility] ([facility])[address] [place] [address] WBC (Bld) [#/Vol] 5.70 10*3/uL Normal 4.00-10.60 [facility] Comment on above: Performed By: #### L [id number] ####[facility] ([facility])[address] [place] [address] HEMOGLOBIN AND HEMATOCRIT, B LOODon 01-31-2023 Hematocrit (Bld) [Volume fraction] 29.9 % Low 39.0-55.0 [facility] Comment on above: Performed By: #### L [id number] ####[facility] ([facility])[address] [place] [address] Hemoglobin (Bld) [Mass/Vol] 9.3 g/dL Low 13.0-17.0 [facility] Comment on above: Performed By: #### L [id number] ####[facility] ([facility])[address] [place] [address] HEPARIN LEVELon 01-31-2023 HEPARIN UNFRACTIONATED (U/ML) IN PPP BY CHROMOGENIC METHOD 0.21 IU/mL Low 0.3-0.7 [facility] Comment on above: Result Comment: Masha roxaban and Apixaban will interfere with the anti Xa assay used to monitor UFH and LMWH. Performed By: #### L [id number] ####[facility] ([facility])[address] [place] [address] POCT GLUCOSE METER UNSOLICIT ED RESULTSon 01-31-2023 Glucose [Mass/Vol] 138 mg/dL High 70-105 [facility] Comment on above: Result Comment: jead es Performed By: #### L [id number] ####[facility] ([facility])[address] [place] [address] Glucose [Mass/Vol] 110 mg/dL High 70-105 [facility] Comment on above: Result Comment: jead es Performed By: #### L [id number] ####[facility] ([facility])[address] [place] [address] Glucose [Mass/Vol] 133 mg/dL High 70-105 [facility] Comment on above: Result Comment: ljon es Performed By: #### L [id number] ####[facility] ([facility])[address] [place] [address] VANCOMYCIN, PEAKon 3 VANCOMYCIN (UG/ML) IN SER/PLAS - PEAK 16.4 ug/mL Low 20.0-50.0 [facility] Comment on above: Order Comment: DO NO T DRAW WITH MORNING LABSVancomycin peak to be drawn at 0830 Performed By: #### L [id number] ####[facility] ([facility])[address] [place] [address] VANCOMYCIN, TROUGHon 023 VANCOMYCIN (UG/ML) IN SER/PLAS - TROUGH 10.6 ug/mL Normal 5.0-20.0 [facility] Comment on above: Performed By: #### L [id number] ####[facility] ([facility])[address] [place] [address] 30on 01-30-2023 30 Normal [facility] 30 Normal [facility] ANESon 01-30-2023 ANES Normal [facility] APTTon 01-30-2023 ACTIVATED PARTIAL THROMBOPLASTIN TIME IN PPP BY COAGULATION ASSAY 41.6 Seconds High 25.0-35.0 [facility] Comment on above: Result Comment: Clin ical significance of the APTT is questionable in the presence of heparin. Performed By: #### L [id number] ####[facility] ([facility])[address] [place] [address] BASIC METABOLIC PANELon 01-09 Anion gap [Moles/Vol] 7 mmol/L Normal 7-20 [facility] Comment on above: Performed By: #### L [id number] ####[facility] ([facility])[address] [place] [address] Calcium [Mass/Vol] 8.2 mg/dL Low 8.6-10.3 [facility] Comment on above: Performed By: #### L [id number] ####[facility] ([facility])[address] [place] [address] Chloride [Moles/Vol] 105 mmol/L Normal 98-107 [facility] Comment on above: Performed By: #### L [id number] ####[facility] ([facility] [place] [address] CO2 [Moles/Vol] 23 mmol/L Normal 21-31 [facility] Comment on above: Performed By: #### L [id number] ####[facility] ([facility])[address] [place] [address] Creatinine [Mass/Vol] 0.43 mg/dL Low 0.70-1.30 [facility] Comment on above: Performed By: #### L [id number] ####[facility] ([facility])[address] [place] [address] GLOMERULAR FILTRATION RATE ML/MIN/1.73 SQ M.PREDICTED 110.6 mL/min/1.73m*2 Normal >60.0 [facility] Comment on above: Result Comment: The [facility]???s estimated glomerular filtration rate (eGFR) will no [...] of individuals. Performed By: #### L [id number] ####[facility] ([facility])[address] [place] [address] Glucose [Mass/Vol] 175 mg/dL High 70-100 [facility] Comment on above: Performed By: #### L [id number] ####[facility] ([facility] [place] [address] Potassium [Moles/Vol] 3.7 mmol/L Normal 3.5-5.1 [facility] Comment on above: Performed By: #### L [id number] ####[facility] ([facility] [place] [address] Sodium [Moles/Vol] 131 mmol/L Low 136-145 [facility] Comment on above: Performed By: #### L [id number] ####[facility])[address] [place] [address] Urea nitrogen [Mass/Vol] 11 mg/dL Normal 7-25 [facility] Comment on above: Performed By: #### L [id number] ####[facility] ([facility])[address] [place] [address] UREA NITROGEN/CREATININE (MASS RATIO) IN SER/PLAS 25.6 Normal [facility] Comment on above: Performed By: #### L [id number] ####[facility] ([facility])[address] [place] [address] Anion gap [Moles/Vol] 9 mmol/L Normal 7-20 [facility] Comment on above: Performed By: #### L [id number] ####[facility] ([facility])[address] [place] [address] Calcium [Mass/Vol] 7.6 mg/dL Low 8.6-10.3 [facility] Comment on above: Performed By: #### L [id number] ####[facility] ([facility])[address] [place] [address] Chloride [Moles/Vol] 104 mmol/L Normal 98-107 [facility] Comment on above: Performed By: #### L [id number] ####[facility] ([facility])[address] [place] [address] CO2 [Moles/Vol] 22 mmol/L Normal 21-31 [facility] Comment on above: Performed By: #### L [id number] ####[facility] ([facility])[address] [place] [address] Creatinine [Mass/Vol] 0.47 mg/dL Low 0.70-1.30 [facility] Comment on above: Performed By: #### L [id number] ####[facility] ([facility])[address] [place] [address] GLOMERULAR FILTRATION RATE ML/MIN/1.73 SQ M.PREDICTED 107.7 mL/min/1.73m*2 Normal >60.0 [facility] Comment on above: Result Comment: The [facility]???s estimated glomerular filtration rate (eGFR) will no [...] of individuals. Performed By: #### L [id number] ####[facility] ([facility])[address] [place] [address] Glucose [Mass/Vol] 191 mg/dL High 70-100 [facility] Comment on above: Performed By: #### L [id number] ####[facility] ([facility])[address] [place] [address] Potassium [Moles/Vol] 4.1 mmol/L Normal 3.5-5.1 [facility] Comment on above: Performed By: #### L [id number] ####[facility] ([facility])[address] [place] [address] Sodium [Moles/Vol] 131 mmol/L Low 136-145 [facility] Comment on above: Performed By: #### L [id number] ####[facility] ([facility])[address] [place] [address] Urea nitrogen [Mass/Vol] 12 mg/dL Normal 7-25 [facility] Comment on above: Performed By: #### L [id number] ####[facility] ([facility])[address] [place] [address] UREA NITROGEN/CREATININE (MASS RATIO) IN SER/PLAS 25.5 Normal [facility] Comment on above: Performed By: #### L [id number] ####[facility] ([facility])[address] [place] [address] BLOOD CULTUREon 01-30-2023 Bacteria identified Cx Nom (Bld) No growth at 5 days Normal [facility] Comment on above: Order Comment: From a different site than #1. Performed By: #### L [id number] ####[facility] ([facility] [place] [address] CBCon 01-30-2023 Erythrocyte distribution width (RBC) [Ratio] 15.8 % High 11.5-15.0 [facility] Comment on above: Performed By: #### L [id number] ####[facility] ([facility])[address] [place] [address] ERYTHROCYTE MEAN CORPUSCULAR HEMOGLOBIN CONCENTRATION (G/DL) BY AUTOMATED 32.3 g/dL Normal 32.0-35.0 [facility] Comment on above: Performed By: #### L [id number] ####[facility] ([facility])[address] [place] [address] Hematocrit (Bld) [Volume fraction] 24.8 % Low 39.0-55.0 [facility] Comment on above: Performed By: #### L [id number] ####[facility] ([facility])[address] [place] [address] Hemoglobin (Bld) [Mass/Vol] 8.0 g/dL Low 13.0-17.0 [facility] Comment on above: Performed By: #### L [id number] ####[facility] ([facility] [place] [address] IMMATURE PLATELET FRACTION % 10.3 % High 0.8-6.3 [facility] Comment on above: Performed By: #### L [id number] ####[facility] ([facility] [place] [address] MCH (RBC) [Entitic mass] 27.2 pg Normal 27.0-33.0 [facility] Comment on above: Performed By: #### L [id number] ####[facility] ([facility] [place] [address] MCV (RBC) [Entitic vol] 84.4 fL Normal 82.0-98.0 [facility] Comment on above: Performed By: #### L [id number] ####[facility] ([facility])[address] [place] [address] PLATELETS (10*3/UL) IN BLOOD AUTOMATED COUNT 79 10*3/uL Low 150-400 [facility] Comment on above: Performed By: #### L [id number] ####[facility] ([facility])[address] [place] [address] RBC (Bld) [#/Vol] 2.94 10*6/uL Low 4.20-5.70 [facility] Comment on above: Performed By: #### L [id number] ####[facility] ([facility])[address] [place] [address] WBC (Bld) [#/Vol] 5.09 10*3/uL Normal 4.00-10.60 [facility] Comment on above: Performed By: #### L [id number] ####[facility] ([facility])[address] [place] [address] CBC WITH AUTO DIFFERENTIALon 01-30-2023 Erythrocyte distribution width (RBC) [Ratio] 15.6 % High 11.5-15.0 [facility] Comment on above: Performed By: #### L [id number] ####[facility] ([facility])[address] [place] [address] ERYTHROCYTE MEAN CORPUSCULAR HEMOGLOBIN CONCENTRATION (G/DL) BY AUTOMATED 33.5 g/dL Normal 32.0-35.0 [facility] Comment on above: Performed By: #### L [id number] ####[facility] ([facility] [place] [address] Hematocrit (Bld) [Volume fraction] 24.2 % Low 39.0-55.0 [facility] Comment on above: Performed By: #### L [id number] ####[facility] ([facility] [place] [address] Hemoglobin (Bld) [Mass/Vol] 8.1 g/dL Low 13.0-17.0 [facility] Comment on above: Performed By: #### L [id number] ####[facility] ([facility] [place] [address] IMMATURE PLATELET FRACTION % 10.2 % High 0.8-6.3 [facility] Comment on above: Performed By: #### L [id number] ####[facility] ([facility] [place] [address] MCH (RBC) [Entitic mass] 28.1 pg Normal 27.0-33.0 [facility] Comment on above: Performed By: #### L [id number] ####[facility] ([facility] [place] [address] MCV (RBC) [Entitic vol] 84.0 fL Normal 82.0-98.0 [facility] Comment on above: Performed By: #### L [id number] ####[facility] ([facility])[address] [place] [address] NRBC (PER 100 WBCS) BY AUTOMATED COUNT 0.0 % Normal 0.0-0.0 [facility] Comment on above: Performed By: #### L [id number] ####[facility] ([facility])[address] [place] [address] PLATELETS (10*3/UL) IN BLOOD AUTOMATED COUNT 80 10*3/uL Low 150-400 [facility] Comment on above: Performed By: #### L [id number] ####[facility] ([facility] [place] [address] RBC (Bld) [#/Vol] 2.88 10*6/uL Low 4.20-5.70 [facility] Comment on above: Performed By: #### L [id number] ####[facility] ([facility] [place] [address] WBC (Bld) [#/Vol] 4.26 10*3/uL Normal 4.00-10.60 [facility] Comment on above: Performed By: #### L [id number] ####[facility] ([facility])[address] [place] [address] CONSULTon 01-30-2023 CONSULT Normal [facility] CONSULT Normal [facility] FIBRINOGENon 01-30-2023 Magnesium [Mass/Vol] 219 mg/dL Normal 150-425 [facility] Comment on above: Performed By: #### L [id number] ####[facility] ([facility])[address] [place] [address] HEPARIN LEVELon 01-30-2023 HEPARIN UNFRACTIONATED (U/ML) IN PPP BY CHROMOGENIC METHOD >1.00 Critically high 0.3-0.7 [facility] Comment on above: Result Comment: Davidson roxaban and Apixaban will interfere with the anti Xa assay used to monitor UFH and LMWH. Performed By: #### L [id number] ####[facility] ([facility])[address] [place] [address] HEPARIN UNFRACTIONATED (U/ML) IN PPP BY CHROMOGENIC METHOD >1.00 Critically high 0.3-0.7 [facility] Comment on above: Result Comment: Davidson roxaban and Apixaban will interfere with the anti Xa assay used to monitor UFH and LMWH. Performed By: #### L [id number] ####[facility] ([facility])[address] [place] [address] HEPATIC FUNCTION PANELon Albumin [Mass/Vol] 2.8 g/dL Low 3.5-5.7 [facility] Comment on above: Performed By: #### L [id number] ####[facility] ([facility])[address] [place] [address] ALP [Catalytic activity/Vol] 42 U/L Normal 34-104 [facility] Comment on above: Performed By: #### L [id number] ####[facility] ([facility])[address] [place] [address] ALT [Catalytic activity/Vol] 13 U/L Normal 7-52 [facility] Comment on above: Performed By: #### L [id number] ####[facility] ([facility])[address] [address] AST [Catalytic activity/Vol] 17 U/L Normal 13-39 [facility] Comment on above: Performed By: #### L [id number] ####[facility] ([facility])[address] [address] Bilirubin [Mass/Vol] 2.6 mg/dL High 0.3-1.0 [facility] Comment on above: Performed By: #### L [id number] ####[facility] ([facility])[address] [place] [address] Magnesium [Mass/Vol] 1.1 mg/dL High 0-0.2 [facility] Comment on above: Performed By: #### L [id number] ####[facility] ([facility])[address] [place] [address] Protein [Mass/Vol] 5.4 g/dL Low 6.0-8.3 [facility] Comment on above: Performed By: #### L [id number] ####[facility] ([facility])[address] [place] [address] LACTIC ACID WITH 4 HOUR REFL EXon 01-30-2023 LACTATE (MMOL/L) IN SER/PLAS 0.8 mmol/L Normal 0.5-2.2 [facility] Comment on above: Performed By: #### L [id number] ####[facility] ([facility])[address] [place] [address] MAGNESIUMon 01-30-2023 Magnesium [Mass/Vol] 2.2 mg/dL Normal 1.9-2.7 [facility] Comment on above: Performed By: #### L [id number] ####[facility] ([facility])[address] [place] [address] Magnesium [Mass/Vol] 1.7 mg/dL Low 1.9-2.7 [facility] Comment on above: Performed By: #### L [id number] ####[facility] ([facility] [place] [address] MANUAL DIFFERENTIALon 2022 BASOPHILS (10*3/UL) IN BLOOD BY CALCULATION 0.01 10*3/uL Normal 0.00-0.20 [facility] Comment on above: Performed By: #### L [id number] ####[facility] ([facility])[address] [place] [address] BASOPHILS/100 LEUKOCYTES IN BLOOD BY AUTOMATED COUNT 0.2 % Normal 0.0-1.0 [facility] Comment on above: Performed By: #### L [id number] ####[facility] ([facility])[address] [place] [address] EOSINOPHILS (10*3/UL) IN BLOOD BY CALCULATION 0.00 10*3/uL Normal 0.00-0.50 [facility] Comment on above: Performed By: #### L [id number] ####[facility] ([facility])[address] [place] [address] EOSINOPHILS/100 LEUKOCYTES IN BLOOD BY AUTOMATED COUNT 0.0 % Normal 0.0-6.0 [facility] Comment on above: Performed By: #### L [id number] ####[facility] ([facility])[address] [place] [address] IMMATURE GRANULOCYTES (10*3/UL) IN BLOOD BY CALCULATION 0.10 10*3/uL Normal 0.00-0.20 [facility] Comment on above: Performed By: #### L [id number] ####[facility] ([facility])[address] [place] [address] IMMATURE GRANULOCYTES/100 LEUKOCYTES IN BLOOD BY AUTOMATED COUNT 2.3 % High 0.0-1.0 [facility] Comment on above: Performed By: #### L [id number] ####[facility] [place] [address] LYMPHOCYTES (10*3/UL) IN BLOOD BY CALCULATION 0.23 10*3/uL Low 1.20-4.00 [facility] Comment on above: Performed By: #### L [id number] ####[facility] ([facility])[address] [address] LYMPHOCYTES/100 LEUKOCYTES IN BLOOD BY AUTOMATED COUNT 5.4 % Low 20.0-45.0 [facility] Comment on above: Performed By: #### L [id number] ####[facility] ([facility])[address] [address] MONOCYTES (10*3/UL) IN BLOOD BY CALCUATION 0.18 10*3/uL Normal 0.10-1.00 [facility] Comment on above: Performed By: #### L [id number] ####[facility] ([facility])[address] [address] MONOCYTES/100 LEUKOCYTES IN BLOOD BY AUTOMATED COUNT 4.2 % Low 5.0-12.0 [facility] Comment on above: Performed By: #### L [id number] ####[facility] ([facility])[address] [address] NEUTROPHILS (10*3/UL) IN BLOOD BY CALCULATION 3.7 10*3/uL Normal 1.6-7.6 [facility] Comment on above: Performed By: #### L [id number] ####[facility] ([facility])[address] [address] NEUTROPHILS/100 LEUKOCYTES IN BLOOD BY AUTOMATED COUNT 87.9 % High 40.0-72.0 [facility] Comment on above: Performed By: #### L [id number] ####[facility] ([facility])[address], [place] [address] PHOSPHORUSon 01-30-2023 Magnesium [Mass/Vol] 2.8 mg/dL Normal 2.5-5.0 [facility] Comment on above: Performed By: #### L [id number] ####[facility] [address] POCT GLUCOSE METER UNSOLICIT ED RESULTSon 01-30-2023 Glucose [Mass/Vol] 128 mg/dL High 70-105 [facility] Comment on above: Result Comment: snow anuja Performed By: #### L [id number] ####[facility] ([facility])[address] [place] [address] Glucose [Mass/Vol] 118 mg/dL High 70-105 [facility] Comment on above: Result Comment: rsuz [email or web address] Performed By: #### L [id number] ####[facility] ([facility])[address] [place] [address] Glucose [Mass/Vol] 157 mg/dL High 70-105 [facility] Comment on above: Result Comment: ebol tz Performed By: #### L [id number] ####[facility] ([facility])[address] [place] [address] Glucose [Mass/Vol] 192 mg/dL High 70-105 [facility] Comment on above: Result Comment: [email or web address] Performed By: #### L [id number] ####[facility] ([facility])[address] [place] [address] PROTIME-INRon 01-30-2023 INR IN PPP BY COAGULATION ASSAY 1.68 High 0.90-1.10 [facility] Comment on above: Result Comment: ACCC P [...] CHEST 1995;108:[id number]. Performed By: #### L [id number] ####[facility] ([facility])[address] [place] [address] PROTHROMBIN TIME (PT) IN PPP BY COAGULATION ASSAY 19.6 Seconds High 12.3-14.8 [facility] Comment on above: Performed By: #### L [id number] ####[facility] ([facility])[address] [place] [address] ANESon 01-29-2023 ANES Normal [facility] APTTon 01-29-2023 ACTIVATED PARTIAL THROMBOPLASTIN TIME IN PPP BY COAGULATION ASSAY 33.0 Seconds Normal 25.0-35.0 [facility] Comment on above: Result Comment: Clin ical significance of the APTT is questionable in the presence of heparin. Performed By: #### L [id number] ####[facility] ([facility])[address] [place] [address] BASIC METABOLIC PANELon 01-09 Anion gap [Moles/Vol] 10 mmol/L Normal 7-20 [facility] Comment on above: Performed By: #### L [id number] ####[facility] ([facility])[address] [place] [address] Calcium [Mass/Vol] 7.6 mg/dL Low 8.6-10.3 [facility] Comment on above: Performed By: #### L [id number] ####[facility] ([facility])[address] [place] [address] Chloride [Moles/Vol] 101 mmol/L Normal 98-107 [facility] Comment on above: Performed By: #### L [id number] ####[facility] [place] [address] CO2 [Moles/Vol] 22 mmol/L Normal 21-31 [facility] Comment on above: Performed By: #### L [id number] ####[facility] ([facility])[address] [place] [address] Creatinine [Mass/Vol] 0.54 mg/dL Low 0.70-1.30 [facility] Comment on above: Performed By: #### L [id number] ####[facility] ([facility])[address] [place] [address] GLOMERULAR FILTRATION RATE ML/MIN/1.73 SQ M.PREDICTED 103.3 mL/min/1.73m*2 Normal >60.0 [facility] Comment on above: Result Comment: [facility]???s estimated glomerular filtration rate (eGFR) will no [...] of individuals. Performed By: #### L [id number] ####[facility] ([facility])[address] [place] [address] Glucose [Mass/Vol] 139 mg/dL High 70-100 [facility] Comment on above: Performed By: #### L [id number] ####[facility] ([facility])[address] [place] [address] Potassium [Moles/Vol] 4.1 mmol/L Normal 3.5-5.1 [facility] Comment on above: Performed By: #### L [id number] ####[facility] ([facility])[address] [place] [address] Sodium [Moles/Vol] 129 mmol/L Low 136-145 [facility] Comment on above: Performed By: #### L [id number] ####[facility] ([facility])[address] [place] [address] Urea nitrogen [Mass/Vol] 13 mg/dL Normal 7-25 [facility] Comment on above: Performed By: #### L [id number] ####[facility] ([facility])[address] [place] [address] UREA NITROGEN/CREATININE (MASS RATIO) IN SER/PLAS 24.1 Normal [facility] Comment on above: Performed By: #### L [id number] ####[facility] ([facility])[address] [place] [address] CBCon 01-29-2023 Erythrocyte distribution width (RBC) [Ratio] 16.4 % High 11.5-15.0 [facility] Comment on above: Performed By: #### L [id number] ####[facility] ([facility])[address] [place] [address] ERYTHROCYTE MEAN CORPUSCULAR HEMOGLOBIN CONCENTRATION (G/DL) BY AUTOMATED 30.8 g/dL Low 32.0-35.0 [facility] Comment on above: Performed By: #### L [id number] ####[facility] ([facility])[address] [place] [address] Hematocrit (Bld) [Volume fraction] 22.1 % Low 39.0-55.0 [facility] Comment on above: Performed By: #### L [id number] ####[facility] ([facility])[address] [place] [address] Hemoglobin (Bld) [Mass/Vol] 6.8 g/dL Low 13.0-17.0 [facility] Comment on above: Performed By: #### L [id number] ####[facility] ([facility])[address] [place] [address] IMMATURE PLATELET FRACTION % 11.1 % High 0.8-6.3 [facility] Comment on above: Performed By: #### L [id number] ####[facility] [place] [address] MCH (RBC) [Entitic mass] 26.5 pg Low 27.0-33.0 [facility] Comment on above: Performed By: #### L [id number] ####[facility] ([facility])[address] [address] MCV (RBC) [Entitic vol] 86.0 fL Normal 82.0-98.0 [facility] Comment on above: Performed By: #### L [id number] ####[facility] ([facility])[address] [facility] [address] PLATELETS (10*3/UL) IN BLOOD AUTOMATED COUNT 96 10*3/uL Low 150-400 [facility] Comment on above: Performed By: #### L [id number] ####[facility] ([facility])[address] [place] [address] RBC (Bld) [#/Vol] 2.57 10*6/uL Low 4.20-5.70 [facility] Comment on above: Performed By: #### L [id number] ####[facility] ([facility])[address] [place] [address] WBC (Bld) [#/Vol] 4.09 10*3/uL Normal 4.00-10.60 [facility] Comment on above: Performed By: #### L [id number] ####[facility] ([facility])[address] [place] [address] CBC AUTO DIFFon 01-29-2023 BASO # 0.0 103/ul Normal 0.0-0.1 [facility] Comment on above: Performed By: #### P TT, PT #### [facility] [address] [place] [address] Dr. Joselyn Coffey Basophils/100 WBC (Bld) 0.2 % Normal 0.2-2.0 [facility] Comment on above: Performed By: #### P TT, PT #### [facility] [address] [place] [address] Dr. Joselyn Coffey EO # 0.0 103/ul Normal 0.0-0.7 [facility] Comment on above: Performed By: #### P TT, PT #### [facility] [address] [place] [address] Dr. Joselyn Coffey Eosinophils/100 WBC (Bld) 0.0 % Critically low 0.9-7.0 [facility] Comment on above: Performed By: #### P TT, PT #### [facility] [address] [place] [address] Dr. Joselyn Coffey Erythrocyte distribution width (RBC) [Ratio] 17.7 % Critically high 11.0-15.0 [facility] Comment on above: Performed By: #### P TT, PT #### [facility] [address] [place] [address] Dr. Joselyn Coffey Hematocrit (Bld) [Volume fraction] 17.5 % Critically low 42.0-54.0 [facility] Comment on above: Performed By: #### P TT, PT #### [facility] [address] [place] [address] Dr. Joselyn Coffey Hemoglobin (Bld) [Mass/Vol] 5.1 g/dL Critically low 14.0-18.0 [facility] Comment on above: Performed By: #### P TT, PT #### [facility] [address] [place] [address] Dr. Joselyn Coffey IG # 0.02 10e3/ul Normal 0.00-0.03 [facility] Comment on above: Performed By: #### P TT, PT #### [facility] [address] [place] [address] Dr. Joselyn Coffey IG % 0.4 % Normal 0.0-0.5 [facility] Comment on above: Performed By: #### P TT, PT #### [facility] [address] [place] [address] Dr. Joselyn Coffey LYMPH # 0.3 103/ul Critically low 1.2-3.8 [facility] Comment on above: Performed By: #### P TT, PT #### [facility] [address] [place] [address] Dr. Joselyn Coffey Lymphocytes/100 WBC (Bld) 5.8 % Critically low 20.5-60.0 [facility] Comment on above: Performed By: #### P TT, PT #### [facility] [address] [place] [address] Dr. Joselyn Coffey MANUAL DIFF REQ NO Normal [facility] Comment on above: Performed By: #### P TT, PT #### [facility] [address] [place] [address] Dr. Joselyn Coffey MCH (RBC) [Entitic mass] 25.5 pg Critically low 25.9-34.0 [facility] Comment on above: Performed By: #### P TT, PT #### [facility] [address] [place] [address] Dr. Joselyn Coffey MCHC (RBC) [Mass/Vol] 29.1 g/dL Critically low 29.9-35.2 [facility] Comment on above: Performed By: #### P TT, PT #### [facility] [address] [place] [address] Dr. Joselyn Coffey MCV (RBC) [Entitic vol] 87.5 fL Normal 80.0-94.0 [facility] Comment on above: Performed By: #### P TT, PT #### [facility] [address] [place] [address] Dr. Joselyn Coffey MONO # 0.5 103/ul Normal 0.3-0.8 [facility] Comment on above: Performed By: #### P TT, PT #### [facility] [address] [place] [address] Dr. Joselyn Coffey Monocytes/100 WBC (Bld) 10.4 % Normal 1.7-12.0 [facility] Comment on above: Performed By: #### P TT, PT #### [facility] [address] [place] [address] Dr. Joselyn Coffey NEUT # 4.3 103/ul Normal 1.4-6.5 [facility] Comment on above: Performed By: #### P TT, PT #### [facility] [address] [place] [address] Dr. Joselyn Coffey Neutrophils/100 WBC (Bld) 83.2 % Critically high 43.0-75.0 [facility] Comment on above: Performed By: #### P TT, PT #### [facility] [address] [place], [place] [address] Dr. Joselyn Coffey Platelet mean volume (Bld) [Entitic vol] 12.4 fL Normal 9.5-13.5 [facility] Comment on above: Performed By: #### P TT, PT #### [facility] [address] [place] [address] [address] Joselyn Coffey PLT 113 103/ul Critically low 150-450 [facility] Comment on above: Performed By: #### P TT, PT #### [facility] [address] [place], [place] [address] Dr. Joselyn Coffey RBC 2.00 106/ul Critically low 4.70-6.10 [facility] Comment on above: Performed By: #### P TT, PT #### [facility] [address] [address] [address] Joselyn Coffey WBC 5.2 103/ul Normal 4.0-11.0 [facility] Comment on above: Performed By: #### P TT, PT #### [facility] [address] [place], [place] [address] Dr. Joselyn Coffey CTA ABD MARY JANE [...] by: LUZ NIETO Date: 2023-01-29 17:48 Normal [facility] EDPROVon 01-29-2023 EDPROV Normal [facility] FIBRINOGENon 01-29-2023 Magnesium [Mass/Vol] 275 mg/dL Normal 150-425 [facility] Comment on above: Performed By: #### L [id number] ####[facility] ([facility])[address] [place] [address] HPon 01-29-2023 HP Normal [facility] OPNOTEon 01-29-2023 OPNOTE Normal [facility] POCT ACTIVATED CLOTTING TIME UNSOLICITED RESULTSon 01-29-2023 POC ACTIVATED CLOTTING TIME 144 sec Normal 82-152 [facility] Comment on above: Performed By: #### L [id number] ####[facility] ([facility])[address] [place] [address] POC ACTIVATED CLOTTING TIME 169 sec High 82-152 [facility] Comment on above: Performed By: #### L [id number] ####[facility] ([facility])[address] [place] [address] POC ACTIVATED CLOTTING TIME 151 sec Normal 82-152 [facility] Comment on above: Performed By: #### L [id number] ####[facility] ([facility])[address] [place] [address] POCT GLUCOSE METER UNSOLICIT ED RESULTSon 01-29-2023 Glucose [Mass/Vol] 154 mg/dL High 70-105 [facility] Comment on above: Result Comment: ekir [email or web address] Performed By: #### L [id number] ####[facility] ([facility])[address] [place] [address] POCT PERFUSION PANEL UNSOLIC ITED RESULTSon 01-29-2023 CO2 [Moles/Vol] 24.0 mmol/L Normal 21.0-29.0 [facility] Comment on above: Performed By: #### L [id number] ####[facility] ([facility])[address] [place] [address] Glucose [Mass/Vol] 181 mg/dL High 70-105 [facility] Comment on above: Performed By: #### L [id number] ####[facility] [place] [address] HCO3 (Bld) [Moles/Vol] 22.8 mmol/L Low 23.0-28.0 [facility] Comment on above: Performed By: #### L [id number] ####[facility] ([facility])[address] [place] [address] Hematocrit (Bld) [Volume fraction] 23 % Low 38-51 [facility] Comment on above: Performed By: #### L [id number] ####[facility] ([facility])[address] [place] [address] Hemoglobin (Bld) [Mass/Vol] 7.8 g/dL Low 12.0-17.0 [facility] Comment on above: Performed By: #### L [id number] ####[facility] ([facility])[address] [place] [address] POCT BASE EXCESS -2.0 mmol/L Normal -2.0-3.0 [facility] Comment on above: Performed By: #### L [id number] ####[facility] ([facility])[address] [place] [address] POCT IONIZED CALCIUM 1.13 mmol/L Normal 1.12-1.32 [facility] Comment on above: Performed By: #### L [id number] ####[facility] ([facility])[address] [place] [address] POCT PCO2 39.9 mmHg Low 41.0-51.0 [facility] Comment on above: Performed By: #### L [id number] ####[facility] ([facility])[address] [place] [address] POCT PH 7.37 Normal 7.31-7.41 [facility] Comment on above: Performed By: #### L [id number] ####[facility] ([facility])[address] [place] [address] POCT PO2 436 mmHg High 80-105 [facility] Comment on above: Performed By: #### L [id number] ####[facility] ([facility])[address] [place] [address] POCT SO2 100 % High 95-98 [facility] Comment on above: Performed By: #### L [id number] ####[facility] ([facility])[address] [place] [address] Potassium [Moles/Vol] 4.4 mmol/L Normal 3.5-4.9 [facility] Comment on above: Performed By: #### L [id number] ####[facility] ([facility])[address] [place] [address] Sodium [Moles/Vol] 135 mmol/L Low 138.0-146.0 [facility] Comment on above: Performed By: #### L [id number] ####[facility] ([facility])[address] [place] [address] CO2 [Moles/Vol] 23.0 mmol/L Normal 21.0-29.0 [facility] Comment on above: Performed By: #### L [id number] ####[facility] ([facility])[address] [place] [address] Glucose [Mass/Vol] 157 mg/dL High 70-105 [facility] Comment on above: Performed By: #### L [id number] ####[facility] ([facility])[address] [place] [address] HCO3 (Bld) [Moles/Vol] 21.5 mmol/L Low 23.0-28.0 [facility] Comment on above: Performed By: #### L [id number] ####[facility] ([facility])[address] [place] [address] Hematocrit (Bld) [Volume fraction] 19 % Low 38-51 [facility] Comment on above: Performed By: #### L [id number] ####[facility] ([facility])[address] [place] [address] Hemoglobin (Bld) [Mass/Vol] 6.5 g/dL Low 12.0-17.0 [facility] Comment on above: Performed By: #### L [id number] ####[facility] ([facility])[address] [place] [address] POCT BASE EXCESS -4.0 mmol/L Low -2.0-3.0 [facility] Comment on above: Performed By: #### L [id number] ####[facility] ([facility])[address] [place] [address] POCT IONIZED CALCIUM 1.34 mmol/L High 1.12-1.32 [facility] Comment on above: Performed By: #### L [id number] ####[facility] ([facility])[address] [place] [address] POCT PCO2 43.5 mmHg Normal 41.0-51.0 [facility] Comment on above: Performed By: #### L [id number] ####[facility] ([facility])[address] [address] POCT PH 7.30 Low 7.31-7.41 [facility] Comment on above: Performed By: #### L [id number] ####[facility] ([facility])[address] [place] [address] POCT PO2 198 mmHg High 80-105 [facility] Comment on above: Performed By: #### L [id number] ####[facility] ([facility])[address] [place] [address] POCT SO2 100 % High 95-98 [facility] Comment on above: Performed By: #### L [id number] ####[facility] ([facility])[address] [place] [address] Potassium [Moles/Vol] 4.1 mmol/L Normal 3.5-4.9 [facility] Comment on above: Performed By: #### L [id number] ####[facility] ([facility])[address] [place] [address] Sodium [Moles/Vol] 134 mmol/L Low 138.0-146.0 [facility] Comment on above: Performed By: #### L [id number] ####[facility] ([facility])[address] [place] [address] CO2 [Moles/Vol] 24.0 mmol/L Normal 21.0-29.0 [facility] Comment on above: Performed By: #### L [id number] ####[facility] ([facility])[address] [place] [address] Glucose [Mass/Vol] 167 mg/dL High 70-105 [facility] Comment on above: Performed By: #### L [id number] ####[facility] ([facility])[address] [place] [address] HCO3 (Bld) [Moles/Vol] 22.5 mmol/L Low 23.0-28.0 [facility] Comment on above: Performed By: #### L [id number] ####[facility] ([facility])[address] [place] [address] Hematocrit (Bld) [Volume fraction] 24 % Low 38-51 [facility] Comment on above: Performed By: #### L [id number] ####[facility] ([facility])[address] [place] [address] Hemoglobin (Bld) [Mass/Vol] 8.2 g/dL Low 12.0-17.0 [facility] Comment on above: Performed By: #### L [id number] ####[facility] ([facility])[address] [place] [address] POCT BASE EXCESS -3.0 mmol/L Low -2.0-3.0 [facility] Comment on above: Performed By: #### L [id number] ####[facility] ([facility])[address] [place] [address] POCT IONIZED CALCIUM 1.17 mmol/L Normal 1.12-1.32 [facility] Comment on above: Performed By: #### L [id number] ####[facility] ([facility])[address] [place] [address] POCT PCO2 39.6 mmHg Low 41.0-51.0 [facility] Comment on above: Performed By: #### L [id number] ####[facility] [place] [address] POCT PH 7.36 Normal 7.31-7.41 [facility] Comment on above: Performed By: #### L [id number] ####[facility] [place] [address] POCT PO2 252 mmHg High 80-105 [facility] Comment on above: Performed By: #### L [id number] ####[facility] ([facility])[address] [place] [address] POCT SO2 100 % High 95-98 [facility] Comment on above: Performed By: #### L [id number] ####[facility] ([facility])[address] [place] [address] Potassium [Moles/Vol] 4.6 mmol/L Normal 3.5-4.9 [facility] Comment on above: Performed By: #### L [id number] ####[facility] ([facility])[address] [place] [address] Sodium [Moles/Vol] 133 mmol/L Low 138.0-146.0 [facility] Comment on above: Performed By: #### L [id number] ####[facility] ([facility])[address] [place] [address] PRBC LEUKOREDUCEDon 01-30-20 ABO and Rh group Nom (Bld) Cross Match Result Compatible Unit Blood Type O Pos Unit Number [id number] Status Information Issued Product ID Red Blood Cells Product Code [id number] Issue Date/Time [id number] Cross Match Result Compatible Unit Blood Type O Pos Unit Number [id number] Status Information Issued Product ID Red Blood Cells Product Code [id number] Issue Date/Time [id number] [facility] Comment on above: Performed By: #### Sammy PROCTOR #### [facility] [address] [address] [address] Joselyn Coffey PROF CHEM 8 (BAS METB)on Anion gap [Moles/Vol] 12.3 mmol/L Normal Th [facility] Comment on above: Performed By: #### B MP #### [facility] [address] [place] [address] Dr. Joselyn Coffey Calcium [Mass/Vol] 7.3 mg/dL Critically low 8.5-10.1 [facility] Comment on above: Performed By: #### B MP #### [facility] [address] [place] [address] Dr. Joselyn Coffey Chloride [Moles/Vol] 100 mmol/L Normal 98-107 [facility] Comment on above: Performed By: #### B MP #### [facility] [address] [place] [address] Dr. Joselyn Coffey CO2 [Moles/Vol] 23.7 mmol/L Normal 21.0-32.0 [facility] Comment on above: Performed By: #### B MP #### [facility] [address] [place] [address] Dr. Joselyn Coffey Creatinine [Mass/Vol] 0.82 mg/dL Normal 0.70-1.30 [facility] Comment on above: Performed By: #### B MP #### [facility] [address] [place] [address] Dr. Joselyn Coffey EGFR-AF GUAMANIAN >60 Normal >=60 [facility] Comment on above: Performed By: #### B MP #### [facility] [address] [place] [address] Dr. Joselyn Coffey EGFR-NON AF GUAMANIAN >60 Normal >=60 [facility] Comment on above: Performed By: #### B MP #### [facility] [address] [place] [address] Dr. Joselyn Coffey Glucose [Mass/Vol] 234 mg/dL Critically high 74-106 [facility] Comment on above: Performed By: #### B MP #### [facility] [address] [place] [address] Dr. Joselyn Coffey Potassium [Moles/Vol] 4.0 mmol/L Normal 3.5-5.1 [facility] Comment on above: Performed By: #### B MP #### [facility] [address] [place] [address] [address] Joselyn Coffey Sodium [Moles/Vol] 132 mmol/L Critically low 136-145 Th e [facility] Comment on above: Performed By: #### B MP #### [facility] [address] [address] [address] Joselyn Coffey Urea nitrogen [Mass/Vol] 14.0 mg/dL Normal 7.0-18.0 [facility] Comment on above: Performed By: #### B MP #### [facility] [address] [place] [address] Dr. Joselyn Coffey Urea nitrogen/Creatinine [Mass ratio] 17.1 mg/mg Normal [facility] Comment on above: Performed By: #### B MP #### [facility] [address] [place] [address] Dr. Joselyn Coffey PROTIMEon 01-29-2023 INR Coag (PPP) [Relative time] 1.32 {INR} Normal [facility] Comment on above: Performed By: #### P TT, PT #### [facility] [address] [place] [address] Dr. Joselyn Coffey INR GUIDELINES SEE BELOW Normal [facility] Comment on above: Result Comment: SNOW RED INR: 2.0 - 3.0 CONDITIONS NOT LISTED BELOW 2.5 - 3.5 FOR PROSTHETIC HEART VALVE REPLACEMENT 2.5 - 3.5 RECURRENT THROMBOSIS Performed By: #### P TT, PT #### [facility] [address] [place] [address] Dr. Joselyn Coffey PT Coag (PPP) [Time] 13.8 s Critically high 9.0-11.6 [facility] Comment on above: Performed By: #### P TT, PT #### [facility] [address] [place] [address] Dr. Joselyn Coffey PROTIME-INRon 01-29-2023 INR IN PPP BY COAGULATION ASSAY 1.69 High 0.90-1.10 [facility] Comment on above: Result Comment: ACCC P [...] CHEST 1995;108:[id number]-246S. Performed By: #### L [id number] ####[facility] ([facility])[address] [place] [address] PROTHROMBIN TIME (PT) IN PPP BY COAGULATION ASSAY 19.7 Seconds High 12.3-14.8 [facility] Comment on above: Performed By: #### L [id number] ####[facility] ([facility])[address] [place] [address] PTTon 01-29-2023 aPTT Coag (Bld) [Time] 34.5 s Normal 22.3-36.2 [facility] Comment on above: Performed By: #### P TT, PT #### [facility] [address] [address] [address] Joselyn Coffey TISSUE CULTUREon 01-29-2023 Bacteria identified Cx Nom (Unsp spec) No growth at 5 days Normal [facility] Comment on above: Order Comment: Pre-o p diagnosis:LEFT GROIN PSEUDOANEURYSM Performed By: #### L [id number] ####[facility] ([facility] [place] [address] GRAM STAIN RESULT Normal [facility] Comment on above: Order Comment: Pre-o p diagnosis:LEFT GROIN PSEUDOANEURYSM Result Comment: Many Polymorphonuclear leukocytesNo organisms seen Performed By: #### L [id number] ####[facility] ([facility])[address] [place] [address] TYPE AND SCREENon 01-29-2023 AB SCREEN Negative Normal [facility] Comment on above: Performed By: #### L [id number] ####[facility], ABO group Nom (Bld) O Normal [facility] Comment on above: Performed By: #### L [id number] ####[facility], RH TYPE IN BLOOD Positive Normal [facility] Comment on above: Performed By: #### L [id number] ####[facility], TYPE AND SCREEN Negative Normal [facility] Comment on above: Performed By: #### C BCMAN #### [facility] [address] [place], [place] [address] Dr. Joselyn Coffey Coding Summary.on 01-18-2023 Coding Summary. Normal [facility] Formson 01-14-2023 Forms [id number]#1.00CD:[address] [facility] Physician Orderon 01-12-2023 Physician Order [id number]#1.00CD:127 [facility] Consent for Treatmenton 12-10 Consent for Treatment [id number]#1.00CD:127 [facility] Heart and Vascular Office/Cl inic Noteon 01-06-2023 Heart and Vascular Office/Clinic Note Normal [facility] Comment on above: Result Comment: Elec tronically Signed By: Vickey WISE, Erwin Evans\.br\Date and Time Signed: 01/06/23 12:03 EDT Coding Summary.on 12-27-2022 Coding Summary. Normal [facility] Consent for Treatmenton 12-08 Consent for Treatment [id number]#1.00CD:[address] [facility] Heart and Vascular Office/Cl inic Noteon 12-23-2022 Heart and Vascular Office/Clinic Note Normal [facility] Comment on above: Result Comment: Elec tronically Signed By: Vickey WISE, Erwin Evans\.br\Date and Time Signed: 12/23/22 14:51 EDT Coding Summary.on 12-20-2022 Coding Summary. Normal [facility] 36on 12-14-2022 36 Ijeoma patients abiodun mclean called and stated that they just got home & she took Max's Blood Pressure. She stated it was 95/53. She wanted to make sure that you have her phone number [phone] if you need to contact her. Normal [facility] Follow-Upon 12-14-2022 Follow-Up Normal [facility] Consent for Treatmenton Consent for Treatment [id number]#1.00CD:[address] [facility] Heart and Vascular Office/Cl inic Noteon 12-09-2022 Heart and Vascular Office/Clinic Note Normal [facility] Comment on above: Result Comment: Elec tronically Signed By: Erwin Hurd MD\.br\Date and Time Signed: 12/09/22 12:18 EST Outside HPon 12-09-2022 Outside HP [id number]#1.00CD:[address] [facility] Outside Labson 12-09-2022 Outside Labs [id number]#1.00CD:[address] [facility] Outside Progress Noteon Outside Progress Note [id number]#1.00CD:[address] [facility] Outside Radiologyon 12-10-19 Outside Radiology [id number]#1.00CD:[address] [facility] Outside Recordson 12-09-2022 Outside Records [id number]#1.00CD:[address] [facility] 30on 12-03-2022 30 Normal [facility] BASIC METABOLIC PANELon 11-11 Anion gap [Moles/Vol] 10 mmol/L Normal 7-20 [facility] Comment on above: Performed By: #### L [id number] ####[facility] ([facility])[address] [facility] [address] Calcium [Mass/Vol] 8.1 mg/dL Low 8.6-10.3 [facility] Comment on above: Performed By: #### L [id number] ####[facility] ([facility])[address] [place] [address] Chloride [Moles/Vol] 103 mmol/L Normal 98-107 [facility] Comment on above: Performed By: #### L [id number] ####[facility] ([facility])[address] [place] [address] CO2 [Moles/Vol] 23 mmol/L Normal 21-31 [facility] Comment on above: Performed By: #### L [id number] ####[facility] ([facility])[address] [facility] [place] [address] Creatinine [Mass/Vol] 0.49 mg/dL Low 0.70-1.30 [facility] Comment on above: Performed By: #### L [id number] ####[facility] ([facility])[address] [place] [address] GLOMERULAR FILTRATION RATE ML/MIN/1.73 SQ M.PREDICTED 106.9 mL/min/1.73m*2 Normal >60.0 [facility] Comment on above: Result Comment: The [facility]???s estimated glomerular filtration rate (eGFR) will no [...] of individuals. Performed By: #### L [id number] ####[facility] ([facility])[address] [place] [address] Glucose [Mass/Vol] 109 mg/dL High 70-100 [facility] Comment on above: Performed By: #### L [id number] ####[facility] ([facility])[address] [place] [address] Potassium [Moles/Vol] 3.9 mmol/L Normal 3.5-5.1 [facility] Comment on above: Performed By: #### L [id number] ####[facility] ([facility])[address] [place] [address] Sodium [Moles/Vol] 132 mmol/L Low 136-145 [facility] Comment on above: Performed By: #### L [id number] ####[facility] ([facility])[address] [place] [address] Urea nitrogen [Mass/Vol] 15 mg/dL Normal 7-25 [facility] Comment on above: Performed By: #### L [id number] ####[facility] ([facility])[address] [place] [address] UREA NITROGEN/CREATININE (MASS RATIO) IN SER/PLAS 30.61 Normal [facility] Comment on above: Performed By: #### L [id number] ####[facility] ([facility])[address] [place] [address] CBCon 12-03-2022 Erythrocyte distribution width (RBC) [Ratio] 18.7 % High 11.5-15.0 [facility] Comment on above: Performed By: #### L [id number] ####[facility] [place] [address] ERYTHROCYTE MEAN CORPUSCULAR HEMOGLOBIN CONCENTRATION (G/DL) BY AUTOMATED 32.5 g/dL Normal 32.0-35.0 [facility] Comment on above: Performed By: #### L [id number] ####[facility] ([facility])[address] [place] [address] Hematocrit (Bld) [Volume fraction] 26.5 % Low 39.0-55.0 [facility] Comment on above: Performed By: #### L [id number] ####[facility] ([facility])[address] [place] [address] Hemoglobin (Bld) [Mass/Vol] 8.6 g/dL Low 13.0-17.0 [facility] Comment on above: Performed By: #### L [id number] ####[facility] ([facility])[address] [place] [address] MCH (RBC) [Entitic mass] 31.6 pg Normal 27.0-33.0 [facility] Comment on above: Performed By: #### L [id number] ####[facility] ([facility])[address] [place] [address] MCV (RBC) [Entitic vol] 97.4 fL Normal 82.0-98.0 [facility] Comment on above: Performed By: #### L [id number] ####[facility] ([facility])[address] [place] [address] PLATELETS (10*3/UL) IN BLOOD AUTOMATED COUNT 144 10*3/uL Low 150-400 [facility] Comment on above: Performed By: #### L [id number] ####[facility] ([facility])[address] [place] [address] RBC (Bld) [#/Vol] 2.72 10*6/uL Low 4.20-5.70 [facility] Comment on above: Performed By: #### L [id number] ####[facility] ([facility])[address] [place] [address] WBC (Bld) [#/Vol] 3.94 10*3/uL Low 4.00-10.60 [facility] Comment on above: Performed By: #### L [id number] ####[facility] ([facility])[address] [place] [address] DSon 12-03-2022 DS [facility] POCT GLUCOSE METER UNSOLICIT ED RESULTSon 12-03-2022 Glucose [Mass/Vol] 184 mg/dL High 70-105 [facility] Comment on above: Result Comment: [email or web address] [email or web address] Performed By: #### L [id number] ####[facility] [place] [address] Glucose [Mass/Vol] 120 mg/dL High 70-105 [facility] Comment on above: Result Comment: [email or web address] [email or web address] Performed By: #### L [id number] ####[facility] [place] [address] 30on 12-02-2022 30 [facility] BASIC METABOLIC PANELon 11-11 Anion gap [Moles/Vol] 10 mmol/L Normal 7-20 [facility] Comment on above: Performed By: #### L [id number] ####[facility] ([facility])[address] [place] [address] Calcium [Mass/Vol] 7.7 mg/dL Low 8.6-10.3 [facility] Comment on above: Performed By: #### L [id number] ####[facility] ([facility])[address] [place] [address] Chloride [Moles/Vol] 103 mmol/L Normal 98-107 [facility] Comment on above: Performed By: #### L [id number] ####[facility] ([facility])[address] [place] [address] CO2 [Moles/Vol] 22 mmol/L Normal 21-31 [facility] Comment on above: Performed By: #### L [id number] ####[facility] ([facility])[address] [place] [address] Creatinine [Mass/Vol] 0.56 mg/dL Low 0.70-1.30 [facility] Comment on above: Performed By: #### L [id number] ####[facility] ([facility])[address] [place] [address] GLOMERULAR FILTRATION RATE ML/MIN/1.73 SQ M.PREDICTED 101.2 mL/min/1.73m*2 Normal >60.0 [facility] Comment on above: Result Comment: The [facility]???s estimated glomerular filtration rate (eGFR) will no [...] of individuals. Performed By: #### L [id number] ####[facility] ([facility])[address] [place] [address] Glucose [Mass/Vol] 104 mg/dL High 70-100 [facility] Comment on above: Performed By: #### L [id number] ####[facility] ([facility])[address] [place] [address] Potassium [Moles/Vol] 3.9 mmol/L Normal 3.5-5.1 [facility] Comment on above: Performed By: #### L [id number] ####[facility] ([facility])[address] [place] [address] Sodium [Moles/Vol] 131 mmol/L Low 136-145 [facility] Comment on above: Performed By: #### L [id number] ####[facility] ([facility])[address] [place] [address] Urea nitrogen [Mass/Vol] 12 mg/dL Normal 7-25 [facility] Comment on above: Performed By: #### L [id number] ####[facility] [place] [address] UREA NITROGEN/CREATININE (MASS RATIO) IN SER/PLAS 21.43 Normal [facility] Comment on above: Performed By: #### L [id number] ####[facility] ([facility])[address] [place] [address] CBCon 12-02-2022 Erythrocyte distribution width (RBC) [Ratio] 18.8 % High 11.5-15.0 [facility] Comment on above: Performed By: #### L [id number] ####[facility] ([facility])[address] [place] [address] ERYTHROCYTE MEAN CORPUSCULAR HEMOGLOBIN CONCENTRATION (G/DL) BY AUTOMATED 32.4 g/dL Normal 32.0-35.0 [facility] Comment on above: Performed By: #### L [id number] ####[facility] ([facility])[address] [place] [address] Hematocrit (Bld) [Volume fraction] 24.7 % Low 39.0-55.0 [facility] Comment on above: Performed By: #### L [id number] ####[facility] ([facility])[address] [place] [address] Hemoglobin (Bld) [Mass/Vol] 8.0 g/dL Low 13.0-17.0 [facility] Comment on above: Performed By: #### L [id number] ####[facility] ([facility])[address] [place] [address] MCH (RBC) [Entitic mass] 31.5 pg Normal 27.0-33.0 [facility] Comment on above: Performed By: #### L [id number] ####[facility] ([facility])[address] [place] [address] MCV (RBC) [Entitic vol] 97.2 fL Normal 82.0-98.0 [facility] Comment on above: Performed By: #### L [id number] ####[facility] ([facility])[address] [place] [address] PLATELETS (10*3/UL) IN BLOOD AUTOMATED COUNT 119 10*3/uL Low 150-400 [facility] Comment on above: Performed By: #### L [id number] ####[facility] ([facility])[address] [place] [address] RBC (Bld) [#/Vol] 2.54 10*6/uL Low 4.20-5.70 [facility] Comment on above: Performed By: #### L [id number] ####[facility] ([facility])[address] [place] [address] WBC (Bld) [#/Vol] 4.59 10*3/uL Normal 4.00-10.60 [facility] Comment on above: Performed By: #### L [id number] ####[facility] ([facility])[address] [place] [address] CONSULTon 12-02-2022 CONSULT Normal [facility] POCT GLUCOSE METER UNSOLICIT ED RESULTSon 12-02-2022 Glucose [Mass/Vol] 215 mg/dL High 70-105 [facility] Comment on above: Result Comment: [email or web address] Performed By: #### L [id number] ####[facility] ([facility])[address] [place] [address] Glucose [Mass/Vol] 176 mg/dL High 70-105 [facility] Comment on above: Result Comment: [email or web address] Performed By: #### L [id number] ####[facility] ([facility])[address] [place] [address] Glucose [Mass/Vol] 227 mg/dL High 70-105 [facility] Comment on above: Result Comment: [email or web address] Performed By: #### L [id number] ####[facility] ([facility])[address] [place] [address] 30on 12-01-2022 30 Normal [facility] 30 Normal [facility] 30 Normal [facility] BASIC METABOLIC PANELon 11-11 Anion gap [Moles/Vol] 9 mmol/L Normal 7-20 [facility] Comment on above: Performed By: #### L [id number] ####[facility] [place] [address] Calcium [Mass/Vol] 7.5 mg/dL Low 8.6-10.3 [facility] Comment on above: Performed By: #### L [id number] ####[facility] [place] [address] Chloride [Moles/Vol] 101 mmol/L Normal 98-107 [facility] Comment on above: Performed By: #### L [id number] ####[facility] ([facility])[address] [place] [address] CO2 [Moles/Vol] 23 mmol/L Normal 21-31 [facility] Comment on above: Performed By: #### L [id number] ####[facility] [place] [address] Creatinine [Mass/Vol] 0.60 mg/dL Low 0.70-1.30 [facility] Comment on above: Performed By: #### L [id number] ####[facility] [place] [address] GLOMERULAR FILTRATION RATE ML/MIN/1.73 SQ M.PREDICTED 98.4 mL/min/1.73m*2 Normal >60.0 [facility] Comment on above: Result Comment: The [facility]???s estimated glomerular filtration rate (eGFR) will no [...] of individuals. Performed By: #### L [id number] ####[facility] ([facility])[address] [place] [address] Glucose [Mass/Vol] 119 mg/dL High 70-100 [facility] Comment on above: Performed By: #### L [id number] ####[facility] ([facility])[address] [place] [address] Potassium [Moles/Vol] 3.9 mmol/L Normal 3.5-5.1 [facility] Comment on above: Performed By: #### L [id number] ####[facility] ([facility])[address] [place] [address] Sodium [Moles/Vol] 129 mmol/L Low 136-145 [facility] Comment on above: Performed By: #### L [id number] ####[facility] ([facility])[address] [place] [address] Urea nitrogen [Mass/Vol] 11 mg/dL Normal 7-25 [facility] Comment on above: Performed By: #### L [id number] ####[facility] ([facility])[address] [place] [address] UREA NITROGEN/CREATININE (MASS RATIO) IN SER/PLAS 18.33 Normal [facility] Comment on above: Performed By: #### L [id number] ####[facility] ([facility])[address] [place] [address] CBCon 12-01-2022 Erythrocyte distribution width (RBC) [Ratio] 19.1 % High 11.5-15.0 [facility] Comment on above: Performed By: #### L [id number] ####[facility] ([facility])[address] [place] [address] ERYTHROCYTE MEAN CORPUSCULAR HEMOGLOBIN CONCENTRATION (G/DL) BY AUTOMATED 33.2 g/dL Normal 32.0-35.0 [facility] Comment on above: Performed By: #### L [id number] ####[facility] ([facility])[address] [place] [address] Hematocrit (Bld) [Volume fraction] 25.6 % Low 39.0-55.0 [facility] Comment on above: Performed By: #### L [id number] ####[facility] ([facility])[address] [place] [address] Hemoglobin (Bld) [Mass/Vol] 8.5 g/dL Low 13.0-17.0 [facility] Comment on above: Performed By: #### L [id number] ####[facility] ([facility])[address] [place] [address] MCH (RBC) [Entitic mass] 31.8 pg Normal 27.0-33.0 [facility] Comment on above: Performed By: #### L [id number] ####[facility] ([facility])[address] [place] [address] MCV (RBC) [Entitic vol] 95.9 fL Normal 82.0-98.0 [facility] Comment on above: Performed By: #### L [id number] ####[facility] ([facility])[address] [place] [address] PLATELETS (10*3/UL) IN BLOOD AUTOMATED COUNT 114 10*3/uL Low 150-400 [facility] Comment on above: Performed By: #### L [id number] ####[facility] ([facility])[address] [place] [address] RBC (Bld) [#/Vol] 2.67 10*6/uL Low 4.20-5.70 [facility] Comment on above: Performed By: #### L [id number] ####[facility] ([facility])[address] [place] [address] WBC (Bld) [#/Vol] 6.12 10*3/uL Normal 4.00-10.60 [facility] Comment on above: Performed By: #### L [id number] ####[facility] [place] [address] MAGNESIUMon 12-01-2022 Magnesium [Mass/Vol] 1.7 mg/dL Low 1.9-2.7 [facility] Comment on above: Performed By: #### L [id number] ####[facility] ([facility])[address] [place] [address] PHOSPHORUSon 12-01-2022 Magnesium [Mass/Vol] 2.7 mg/dL Normal 2.5-5.0 [facility] Comment on above: Performed By: #### L [id number] ####[facility] ([facility])[address] [place] [address] POCT GLUCOSE METER UNSOLICIT ED RESULTSon 12-01-2022 Glucose [Mass/Vol] 233 mg/dL High 70-105 [facility] Comment on above: Result Comment: [email or web address] [email or web address] Performed By: #### L [id number] ####[facility] ([facility])[address] [place] [address] Glucose [Mass/Vol] 161 mg/dL High 70-105 [facility] Comment on above: Result Comment: [email or web address] Performed By: #### L [id number] ####[facility] ([facility])[address] [place] [address] Glucose [Mass/Vol] 137 mg/dL High 70-105 [facility] Comment on above: Result Comment: [email or web address] Performed By: #### L [id number] ####[facility] ([facility])[address] [place] [address] Glucose [Mass/Vol] 125 mg/dL High 70-105 [facility] Comment on above: Result Comment: [email or web address] Performed By: #### L [id number] ####[facility] ([facility])[address] [place] [address] WOUND CULTUREon 12-01-2022 GRAM STAIN RESULT Normal [facility] Comment on above: Order Comment: Super ficial right groin culture please Result Comment: Many Polymorphonuclear leukocytesNo organisms seen Performed By: #### L [id number] ####[facility] ([facility])[address] [place] [address] WOUND CULTURE No growth at 5 days Normal [facility] Comment on above: Order Comment: Super ficial right groin culture please Performed By: #### L [id number] ####[facility] ([facility])[address] [place] [address] 30on 11-30-2022 30 Normal [facility] 30 Normal [facility] BASIC METABOLIC PANELon 11-11 Anion gap [Moles/Vol] 7 mmol/L Normal 7-20 [facility] Comment on above: Performed By: #### L [id number] ####[facility] [place] [address] Calcium [Mass/Vol] 7.6 mg/dL Low 8.6-10.3 [facility] Comment on above: Performed By: #### L [id number] ####[facility] [place] [address] Chloride [Moles/Vol] 102 mmol/L Normal 98-107 [facility] Comment on above: Performed By: #### L [id number] ####[facility] [place] [address] CO2 [Moles/Vol] 23 mmol/L Normal 21-31 [facility] Comment on above: Performed By: #### L [id number] ####[facility] ([facility])[address] [place] [address] Creatinine [Mass/Vol] 0.58 mg/dL Low 0.70-1.30 [facility] Comment on above: Performed By: #### L [id number] ####[facility] [place] [address] GLOMERULAR FILTRATION RATE ML/MIN/1.73 SQ M.PREDICTED 99.7 mL/min/1.73m*2 Normal >60.0 [facility] Comment on above: Result Comment: [facility]???s estimated glomerular filtration rate (eGFR) will no [...] of individuals. Performed By: #### L [id number] ####[facility] ([facility])[address] [place] [address] Glucose [Mass/Vol] 111 mg/dL High 70-100 [facility] Comment on above: Performed By: #### L [id number] ####[facility] ([facility])[address] [place] [address] Potassium [Moles/Vol] 4.2 mmol/L Normal 3.5-5.1 [facility] Comment on above: Performed By: #### L [id number] ####[facility] ([facility])[address] [place] [address] Sodium [Moles/Vol] 128 mmol/L Low 136-145 [facility] Comment on above: Performed By: #### L [id number] ####[facility] ([facility])[address] [place] [address] Urea nitrogen [Mass/Vol] 14 mg/dL Normal 7-25 [facility] Comment on above: Performed By: #### L [id number] ####[facility] ([facility])[address] [place] [address] UREA NITROGEN/CREATININE (MASS RATIO) IN SER/PLAS 24.14 Normal [facility] Comment on above: Performed By: #### L [id number] ####[facility] ([facility])[address] [place] [address] CBCon 11-30-2022 Erythrocyte distribution width (RBC) [Ratio] 19.7 % High 11.5-15.0 [facility] Comment on above: Performed By: #### L [id number] ####[facility] [place] [address] ERYTHROCYTE MEAN CORPUSCULAR HEMOGLOBIN CONCENTRATION (G/DL) BY AUTOMATED 33.3 g/dL Normal 32.0-35.0 [facility] Comment on above: Performed By: #### L [id number] ####[facility] ([facility] [address] Hematocrit (Bld) [Volume fraction] 24.9 % Low 39.0-55.0 [facility] Comment on above: Performed By: #### L [id number] ####[facility] ([facility])[address] [address] Hemoglobin (Bld) [Mass/Vol] 8.3 g/dL Low 13.0-17.0 [facility] Comment on above: Performed By: #### L [id number] ####[facility] ([facility])[address] [place] [address] MCH (RBC) [Entitic mass] 31.8 pg Normal 27.0-33.0 [facility] Comment on above: Performed By: #### L [id number] ####[facility] ([facility])[address] [place] [address] MCV (RBC) [Entitic vol] 95.4 fL Normal 82.0-98.0 [facility] Comment on above: Performed By: #### L [id number] ####[facility] ([facility])[address] [place] [address] PLATELETS (10*3/UL) IN BLOOD AUTOMATED COUNT 121 10*3/uL Low 150-400 [facility] Comment on above: Performed By: #### L [id number] ####[facility] ([facility])[address] [place] [address] RBC (Bld) [#/Vol] 2.61 10*6/uL Low 4.20-5.70 [facility] Comment on above: Performed By: #### L [id number] ####[facility] ([facility])[address] [place] [address] WBC (Bld) [#/Vol] 5.72 10*3/uL Normal 4.00-10.60 [facility] Comment on above: Performed By: #### L [id number] ####[facility] ([facility])[address] [place] [address] Coding Summary.on 11-30-2022 Coding Summary. Normal [facility] POCT GLUCOSE METER UNSOLICIT ED RESULTSon 11-30-2022 Glucose [Mass/Vol] 130 mg/dL High 70-105 [facility] Comment on above: Result Comment: [email or web address] Performed By: #### L [id number] ####[facility] ([facility])[address] [place] [address] Glucose [Mass/Vol] 111 mg/dL High 70-105 [facility] Comment on above: Result Comment: [email or web address] Performed By: #### L [id number] ####[facility] ([facility])[address] [place] [address] Glucose [Mass/Vol] 210 mg/dL High 70-105 [facility] Comment on above: Result Comment: [email or web address] Performed By: #### L [id number] ####[facility] ([facility])[address] [place] [address] Glucose [Mass/Vol] 132 mg/dL High 70-105 [facility] Comment on above: Result Comment: [email or web address] Performed By: #### L [id number] ####[facility] ([facility])[address] [place] [address] Glucose [Mass/Vol] 132 mg/dL High 70-105 [facility] Comment on above: Result Comment: [email or web address] Performed By: #### L [id number] ####[facility] ([facility])[address] [place] [address] ANESon 11-29-2022 [facility] APTTon 11-29-2022 ACTIVATED PARTIAL THROMBOPLASTIN TIME IN PPP BY COAGULATION ASSAY 35.4 Seconds High 25.0-35.0 [facility] Comment on above: Performed By: #### L [id number] ####[facility] ([facility])[address] [place] [address] ARTERIAL BLOOD GAS WITH CO-O XIMETRYon 11-29-2022 Base excess Calc (Bld) [Moles/Vol] -6.0000 mmol/L Low -2.0-3.0 [facility] Comment on above: Order Comment: OR co mplete Performed By: #### L [id number] ####[facility] [id number] [place] [address] [facility] CARBOXYHEMOGLOBIN/HEMO GLOBIN TOTAL % IN BLOOD 2.1 % Normal 0.0-3.0 [facility] Comment on above: Order Comment: OR co mplete Performed By: #### L [id number] ####[facility] [id number] [place] [address] [facility] CO2 (Bld) [Partial pressure] 38 mm[Hg] Normal 35-48 [facility] Comment on above: Order Comment: OR co mplete Performed By: #### L [id number] ####[facility] [id number] [place] [address] [facility] DEOXYGENATED HEMOGLOBIN IN BLOOD 0.0 % Low 1-5 [facility] Comment on above: Order Comment: OR co mplete Performed By: #### L [id number] ####[facility] [id number] [place] [address] [place] HCO3 (Bld) [Moles/Vol] 19.6 mmol/L Low 21.0-28.0 [facility] on above: Order Comment: OR co mplete Performed By: #### L [id number] ####[facility] [id number] [place] [address] [facility] Hemoglobin (Bld) [Mass/Vol] 9.1 g/dL Low 11.7-17.4 [facility] Comment on above: Order Comment: OR co mplete Performed By: #### L [id number] ####[facility] [id number] [place] [address] [facility] METHEMOGLOBIN/100 IN BLOOD 0.5 % Normal 0.0-1.5 [facility] Comment on above: Order Comment: OR co mplete Performed By: #### L [id number] ####[facility] [id number] [place] [address] [facility] Oxygen (Bld) [Partial pressure] 258 mm[Hg] High 83-100 [facility] Comment on above: Order Comment: OR co mplete Performed By: #### L [id number] ####[facility] [id number] [place] [address] [facility] OXYGEN SATURATION (%) IN ARTERIAL BLOOD 100.0 % High 94.0-98.0 [facility] Comment on above: Order Comment: OR co mplete Performed By: #### L [id number] ####[facility] [id number] [place] [address] [facility] OXYGENATED HEMOGLOBIN IN BLOOD 97.4 % High 90.0-95.0 [facility] Comment on above: Order Comment: OR co mplete Performed By: #### L [id number] ####[facility] [id number] [place] [address] [facility] pH (Bld) 7.32 [pH] Low 7.35-7.45 [facility] Comment on above: Order Comment: OR co mplete Performed By: #### L [id number] ####[facility] [id number] [place] [address] [facility] SOURCE OF OXYGEN Vent Normal [facility] Comment on above: Order Comment: OR co mplete Performed By: #### L [id number] ####[facility] [id number] [place] [address] [facility] Base excess Calc (Bld) [Moles/Vol] -5.1000 mmol/L Low -2.0-3.0 [facility] Comment on above: Order Comment: Or ve nt complete Performed By: #### L [id number] ####[facility] [id number] [facility] [address] [facility] CARBOXYHEMOGLOBIN/HEMO GLOBIN TOTAL % IN BLOOD 2.3 % Normal 0.0-3.0 [facility] Comment on above: Order Comment: Or ve nt complete Performed By: #### L [id number] ####[facility] [id number] [place] [address] [facility] CO2 (Bld) [Partial pressure] 35 mm[Hg] Normal 35-48 [facility] Comment on above: Order Comment: Or ve nt complete Performed By: #### L [id number] ####[facility] [id number] [place] [address] [facility] DEOXYGENATED HEMOGLOBIN IN BLOOD 0.0 % Low 1-5 [facility] Comment on above: Order Comment: Or ve nt complete Performed By: #### L [id number] ####[facility] [id number] [place] [address] [facility] HCO3 (Bld) [Moles/Vol] 19.8 mmol/L Low 21.0-28.0 [facility] Comment on above: Order Comment: Or ve nt complete Performed By: #### L [id number] ####[facility] [id number] [place] [address] [facility] Hemoglobin (Bld) [Mass/Vol] 8.5 g/dL Low 11.7-17.4 [facility] Comment on above: Order Comment: Or ve nt complete Performed By: #### L [id number] ####[facility] [id number] [place] [address] [place] METHEMOGLOBIN/100 IN BLOOD 0.6 % Normal 0.0-1.5 [facility] Comment on above: Order Comment: Or ve nt complete Performed By: #### L [id number] ####[facility] [id number] [place] [address] [facility] Oxygen (Bld) [Partial pressure] 303 mm[Hg] High 83-100 [facility] Comment on above: Order Comment: Or ve nt complete Performed By: #### L [id number] ####[facility] [id number] [address] [place] [address] [facility] OXYGEN SATURATION (%) IN ARTERIAL BLOOD 100.0 % High 94.0-98.0 [facility] Comment on above: Order Comment: Or ve nt complete Performed By: #### L [id number] ####[facility] [id number] [place] [address] [facility] OXYGENATED HEMOGLOBIN IN BLOOD 97.1 % High 90.0-95.0 [facility] Comment on above: Order Comment: Or ve nt complete Performed By: #### L [id number] ####[facility] [id number] [facility] [address] [facility] pH (Bld) 7.36 [pH] Normal 7.35-7.45 [facility] Comment on above: Order Comment: Or ve nt complete Performed By: #### L [id number] ####[facility] [id number] [facility] [place] [address] [facility] SOURCE OF OXYGEN Vent Normal [facility] Comment on above: Order Comment: Or ve nt complete Performed By: #### L [id number] ####[facility] [id number] [facility] [facility] [place] [address] [facility] BASIC METABOLIC PANELon 11-11 Anion gap [Moles/Vol] 7 mmol/L Normal 7-20 [facility] Comment on above: Performed By: #### L [id number] ####[facility] ([facility])[address] [place] [address] Calcium [Mass/Vol] 7.8 mg/dL Low 8.6-10.3 [facility] Comment on above: Performed By: #### L [id number] ####[facility] ([facility])[address] [place] [address] Chloride [Moles/Vol] 101 mmol/L Normal 98-107 [facility] Comment on above: Performed By: #### L [id number] ####[facility] ([facility])[address] [place] [address] CO2 [Moles/Vol] 23 mmol/L Normal 21-31 [facility] Comment on above: Performed By: #### L [id number] ####[facility] ([facility])[address] [place] [address] Creatinine [Mass/Vol] 0.65 mg/dL Low 0.70-1.30 [facility] Comment on above: Performed By: #### L [id number] ####[facility] ([facility])[address] [place] [address] GLOMERULAR FILTRATION RATE ML/MIN/1.73 SQ M.PREDICTED 95.2 mL/min/1.73m*2 Normal >60.0 [facility] Comment on above: Result Comment: The [facility]???s estimated glomerular filtration rate (eGFR) will no [...] of individuals. Performed By: #### L [id number] ####[facility] ([facility])[address] [place] [address] Glucose [Mass/Vol] 116 mg/dL High 70-100 [facility] Comment on above: Performed By: #### L [id number] ####[facility] ([facility])[address] [place] [address] Potassium [Moles/Vol] 4.4 mmol/L Normal 3.5-5.1 [facility] Comment on above: Performed By: #### L [id number] ####[facility] ([facility])[address] [place] [address] Sodium [Moles/Vol] 127 mmol/L Low 136-145 [facility] Comment on above: Performed By: #### L [id number] ####[facility] ([facility])[address] [place] [address] Urea nitrogen [Mass/Vol] 21 mg/dL Normal 7-25 [facility] Comment on above: Performed By: #### L [id number] ####[facility] ([facility])[address] [place] [address] UREA NITROGEN/CREATININE (MASS RATIO) IN SER/PLAS 32.31 Normal [facility] Comment on above: Performed By: #### L [id number] ####[facility] ([facility])[address] [place] [address] Anion gap [Moles/Vol] 9 mmol/L Normal 7-20 [facility] Comment on above: Performed By: #### L [id number] ####[facility] ([facility])[address] [place] [address] Calcium [Mass/Vol] 7.6 mg/dL Low 8.6-10.3 [facility] Comment on above: Performed By: #### L [id number] ####[facility] ([facility])[address] [place] [address] Chloride [Moles/Vol] 104 mmol/L Normal 98-107 [facility] Comment on above: Performed By: #### L [id number] ####[facility] ([facility])[address] [place] [address] CO2 [Moles/Vol] 20 mmol/L Low 21-31 [facility] Comment on above: Performed By: #### L [id number] ####[facility] ([facility])[address] [place] [address] Creatinine [Mass/Vol] 0.80 mg/dL Normal 0.70-1.30 [facility] Comment on above: Performed By: #### L [id number] ####[facility] ([facility])[address] [place] [address] GLOMERULAR FILTRATION RATE ML/MIN/1.73 SQ M.PREDICTED 87.4 mL/min/1.73m*2 Normal >60.0 [facility] Comment on above: Result Comment: The [facility]???s estimated glomerular filtration rate (eGFR) will no [...] of individuals. Performed By: #### L [id number] ####[facility] ([facility])[address] [place] [address] Glucose [Mass/Vol] 160 mg/dL High 70-100 [facility] Comment on above: Performed By: #### L [id number] ####[facility] ([facility])[address] [place] [address] Potassium [Moles/Vol] 4.2 mmol/L Normal 3.5-5.1 [facility] Comment on above: Performed By: #### L [id number] ####[facility] ([facility])[address] [address] Sodium [Moles/Vol] 129 mmol/L Low 136-145 [facility] Comment on above: Performed By: #### L [id number] ####[facility] ([facility])[address] [address] Urea nitrogen [Mass/Vol] 23 mg/dL Normal 7-25 [facility] Comment on above: Performed By: #### L [id number] ####[facility] ([facility])[address]ITTNEYMiniVaxWV[place] [address] UREA NITROGEN/CREATININE (MASS RATIO) IN SER/PLAS 28.75 Normal [facility] Comment on above: Performed By: #### L [id number] ####[facility] ([facility])[address] [address] CALCIUM, IONIZEDon 3 CALCIUM IONIZED (MMOL/L) IN BLOOD 1.34 mmol/L High 1.15-1.33 [facility] Comment on above: Performed By: #### C ALCIUM, IONIZED ####[facility] [id number] [place] [address] [facility] CALCIUM IONIZED (MMOL/L) IN BLOOD 1.13 mmol/L Low 1.15-1.33 [facility] Comment on above: Performed By: #### C ALCIUM, IONIZED ####[facility] [id number] [place] [address] [facility] CBCon 11-29-2022 Erythrocyte distribution width (RBC) [Ratio] 20.0 % High 11.5-15.0 [facility] Comment on above: Performed By: #### L [id number] ####[facility] ([facility])[address] [place] [address] ERYTHROCYTE MEAN CORPUSCULAR HEMOGLOBIN CONCENTRATION (G/DL) BY AUTOMATED 34.1 g/dL Normal 32.0-35.0 [facility] Comment on above: Performed By: #### L [id number] ####[facility] ([facility])[address] [place] [address] Hematocrit (Bld) [Volume fraction] 27.0 % Low 39.0-55.0 [facility] Comment on above: Performed By: #### L [id number] ####[facility] ([facility])[address] [place] [address] Hemoglobin (Bld) [Mass/Vol] 9.2 g/dL Low 13.0-17.0 [facility] Comment on above: Performed By: #### L [id number] ####[facility] ([facility])[address] [place] [address] MCH (RBC) [Entitic mass] 31.7 pg Normal 27.0-33.0 [facility] Comment on above: Performed By: #### L [id number] ####[facility] ([facility])[address] [place] [address] MCV (RBC) [Entitic vol] 93.1 fL Normal 82.0-98.0 [facility] Comment on above: Performed By: #### L [id number] ####[facility] ([facility])[address] [place] [address] PLATELETS (10*3/UL) IN BLOOD AUTOMATED COUNT 143 10*3/uL Low 150-400 [facility] Comment on above: Performed By: #### L [id number] ####[facility] [place] [address] RBC (Bld) [#/Vol] 2.90 10*6/uL Low 4.20-5.70 [facility] Comment on above: Performed By: #### L [id number] ####[facility] ([facility])[address] [place] [address] WBC (Bld) [#/Vol] 8.50 10*3/uL Normal 4.00-10.60 [facility] Comment on above: Performed By: #### L [id number] ####[facility] [place] [address] Erythrocyte distribution width (RBC) [Ratio] 19.3 % High 11.5-15.0 [facility] Comment on above: Performed By: #### L [id number] ####[facility] ([facility])[address] [place] [address] ERYTHROCYTE MEAN CORPUSCULAR HEMOGLOBIN CONCENTRATION (G/DL) BY AUTOMATED 33.2 g/dL Normal 32.0-35.0 [facility] Comment on above: Performed By: #### L [id number] ####[facility] ([facility])[address] [place] [address] Hematocrit (Bld) [Volume fraction] 28.0 % Low 39.0-55.0 [facility] Comment on above: Performed By: #### L [id number] ####[facility] ([facility])[address] [place] [address] Hemoglobin (Bld) [Mass/Vol] 9.3 g/dL Low 13.0-17.0 [facility] Comment on above: Performed By: #### L [id number] ####[facility] ([facility])[address] [place] [address] MCH (RBC) [Entitic mass] 31.5 pg Normal 27.0-33.0 [facility] Comment on above: Performed By: #### L [id number] ####[facility] [address] MCV (RBC) [Entitic vol] 94.9 fL Normal 82.0-98.0 [facility] Comment on above: Performed By: #### L [id number] ####[facility] ([facility])[address] [place] [address] PLATELETS (10*3/UL) IN BLOOD AUTOMATED COUNT 139 10*3/uL Low 150-400 [facility] Comment on above: Performed By: #### L [id number] ####[facility] [address] RBC (Bld) [#/Vol] 2.95 10*6/uL Low 4.20-5.70 [facility] Comment on above: Performed By: #### L [id number] ####[facility] ([facility])[address] [address] WBC (Bld) [#/Vol] 11.01 10*3/uL High 4.00-10.60 [facility] Comment on above: Performed By: #### L [id number] ####[facility] ([facility])[address] [address] CBC WITH AUTO DIFFERENTIALon 11-29-2022 Erythrocyte distribution width (RBC) [Ratio] 19.3 % High 11.5-15.0 [facility] Comment on above: Performed By: #### L [id number] ####[facility] ([facility])[address] [address] ERYTHROCYTE MEAN CORPUSCULAR HEMOGLOBIN CONCENTRATION (G/DL) BY AUTOMATED 32.5 g/dL Normal 32.0-35.0 [facility] Comment on above: Performed By: #### L [id number] ####[facility] ([facility])[address] [place] [address] Hematocrit (Bld) [Volume fraction] 27.4 % Low 39.0-55.0 [facility] Comment on above: Performed By: #### L [id number] ####[facility] ([facility])[address] [place] [address] Hemoglobin (Bld) [Mass/Vol] 8.9 g/dL Low 13.0-17.0 [facility] Comment on above: Performed By: #### L [id number] ####[facility] ([facility])[address] [place] [address] MCH (RBC) [Entitic mass] 32.6 pg Normal 27.0-33.0 [facility] Comment on above: Performed By: #### L [id number] ####[facility] ([facility])[address] [place] [address] MCV (RBC) [Entitic vol] 100.4 fL High 82.0-98.0 [facility] Comment on above: Performed By: #### L [id number] ####[facility] ([facility])[address] [place] [address] NRBC (PER 100 WBCS) BY AUTOMATED COUNT 0.0 % Normal 0.0-0.0 [facility] Comment on above: Performed By: #### L [id number] ####[facility] ([facility])[address] [place] [address] PLATELETS (10*3/UL) IN BLOOD AUTOMATED COUNT 313 10*3/uL Normal 150-400 [facility] Comment on above: Performed By: #### L [id number] ####[facility] ([facility])[address] [place] [address] RBC (Bld) [#/Vol] 2.73 10*6/uL Low 4.20-5.70 [facility] Comment on above: Performed By: #### L [id number] ####[facility] ([facility])[address] [place] [address] WBC (Bld) [#/Vol] 12.64 10*3/uL High 4.00-10.60 [facility] Comment on above: Performed By: #### L [id number] ####[facility] ([facility])[address] [place] [address] COMPREHENSIVE METABOLIC PANE Sridhar 11-29-2022 Albumin [Mass/Vol] 2.8 g/dL Low 3.5-5.7 [facility] Comment on above: Performed By: #### L [id number] ####[facility] ([facility])[address] [place] [address] ALP [Catalytic activity/Vol] 88 U/L Normal 34-104 [facility] Comment on above: Performed By: #### L [id number] ####[facility] ([facility])[address] [place] [address] ALT [Catalytic activity/Vol] 51 U/L Normal 7-52 [facility] Comment on above: Performed By: #### L [id number] ####[facility] ([facility])[address] [place] [address] Anion gap [Moles/Vol] 13 mmol/L Normal 7-20 [facility] Comment on above: Performed By: #### L [id number] ####[facility] ([facility])[address] [place] [address] AST [Catalytic activity/Vol] 37 U/L Normal 13-39 [facility] Comment on above: Performed By: #### L [id number] ####[facility] ([facility])[address] [place] [address] Bilirubin [Mass/Vol] 1.5 mg/dL High 0.3-1.0 [facility] Comment on above: Performed By: #### L [id number] ####[facility] ([facility])[address] [place] [address] Calcium [Mass/Vol] 8.2 mg/dL Low 8.6-10.3 [facility] Comment on above: Performed By: #### L [id number] ####[facility] ([facility])[address] [place] [address] Chloride [Moles/Vol] 99 mmol/L Normal 98-107 [facility] Comment on above: Performed By: #### L [id number] ####[facility] ([facility])[address] [place] [address] CO2 [Moles/Vol] 20 mmol/L Low 21-31 [facility] Comment on above: Performed By: #### L [id number] ####[facility] ([facility])[address] [place] [address] Creatinine [Mass/Vol] 0.89 mg/dL Normal 0.70-1.30 [facility] Comment on above: Performed By: #### L [id number] ####[facility] ([facility])[address] [place] [address] GLOMERULAR FILTRATION RATE ML/MIN/1.73 SQ M.PREDICTED 83.6 mL/min/1.73m*2 Normal >60.0 [facility] Comment on above: Result Comment: [facility]???s estimated glomerular filtration rate (eGFR) will no [...] of individuals. Performed By: #### L [id number] ####[facility] ([facility] [place] [address] Glucose [Mass/Vol] 232 mg/dL High 70-100 [facility] Comment on above: Performed By: #### L [id number] ####[facility] [place] [address] Potassium [Moles/Vol] 4.8 mmol/L Normal 3.5-5.1 [facility] Comment on above: Performed By: #### L [id number] ####[facility] ([facility] [place] [address] Protein [Mass/Vol] 5.8 g/dL Low 6.0-8.3 [facility] Comment on above: Performed By: #### L [id number] ####[facility] [place] [address] Sodium [Moles/Vol] 127 mmol/L Low 136-145 [facility] Comment on above: Performed By: #### L [id number] ####[facility] ([facility])[address] [place] [address] Urea nitrogen [Mass/Vol] 24 mg/dL Normal 7-25 [facility] Comment on above: Performed By: #### L [id number] ####[facility] ([facility])[address] [place] [address] UREA NITROGEN/CREATININE (MASS RATIO) IN SER/PLAS 26.97 Normal [facility] Comment on above: Performed By: #### L [id number] ####[facility] ([facility])[address] [place] [address] EDNURSon 11-29-2022 EDNURS Normal [facility] EDPROVon 11-29-2022 EDPROV Normal [facility] System EDPROV Normal [facility] HPon 11-29-2022 HP Normal [facility] MAGNESIUMon 11-29-2022 Magnesium [Mass/Vol] 1.8 mg/dL Low 1.9-2.7 [facility] Comment on above: Performed By: #### L [id number] ####[facility] [place] [address] MANUAL DIFFERENTIALon 2022 ANISOCYTOSIS PRESENCE IN BLOOD BY LIGHT MICROSCOPY Moderate Normal [facility] Comment on above: Performed By: #### L [id number] ####[facility] ([facility])[address] [place] [address] BASOPHILS (10*3/UL) IN BLOOD BY CALCULATION 0.04 10*3/uL Normal [facility] Comment on above: Performed By: #### L [id number] ####[facility] ([facility])[address] [place] [address] BASOPHILS/100 LEUKOCYTES IN BLOOD BY AUTOMATED COUNT 0.3 % Normal 0.0-1.0 [facility] Comment on above: Performed By: #### L [id number] ####[facility] ([facility])[address] [place] [address] HELLEN CELLS PRESENCE IN BLOOD BY LIGHT MICROSCOPY Moderate Normal [facility] Comment on above: Performed By: #### L [id number] ####[facility] ([facility])[address] [place] [address] EOSINOPHILS (10*3/UL) IN BLOOD BY CALCULATION 0.08 10*3/uL Normal [facility] Comment on above: Performed By: #### L [id number] ####[facility] ([facility])[address] [place] [address] EOSINOPHILS/100 LEUKOCYTES IN BLOOD BY AUTOMATED COUNT 0.6 % Normal 0.0-6.0 [facility] Comment on above: Performed By: #### L [id number] ####[facility] ([facility])[address] [place] [address] IMMATURE GRANULOCYTES (10*3/UL) IN BLOOD BY CALCULATION 0.09 Normal [facility] Comment on above: Performed By: #### L [id number] ####[facility] [place] [address] IMMATURE GRANULOCYTES/100 LEUKOCYTES IN BLOOD BY AUTOMATED COUNT 0.7 % Normal 0.0-1.0 [facility] Comment on above: Performed By: #### L [id number] ####[facility] [place] [address] LYMPHOCYTES (10*3/UL) IN BLOOD BY CALCULATION 1.09 10*3/uL Low 1.20-4.00 [facility] Comment on above: Performed By: #### L [id number] ####[facility] ([facility])[address] [place] [address] LYMPHOCYTES/100 LEUKOCYTES IN BLOOD BY AUTOMATED COUNT 8.6 % Low 20.0-45.0 [facility] Comment on above: Performed By: #### L [id number] ####[facility] ([facility] [place] [address] MONOCYTES (10*3/UL) IN BLOOD BY CALCUATION 1.35 10*3/uL Normal [facility] Comment on above: Performed By: #### L [id number] ####[facility] ([facility])[address] [place] [address] MONOCYTES/100 LEUKOCYTES IN BLOOD BY AUTOMATED COUNT 10.7 % Normal 5.0-12.0 [facility] Comment on above: Performed By: #### L [id number] ####[facility] ([facility])[address] [place] [address] NEUTROPHILS (10*3/UL) IN BLOOD BY CALCULATION 10.0 10*3/uL High 1.6-7.6 [facility] Comment on above: Performed By: #### L [id number] ####[facility] ([facility])[address] [place] [address] NEUTROPHILS/100 LEUKOCYTES IN BLOOD BY AUTOMATED COUNT 79.1 % High 40.0-72.0 [facility] Comment on above: Performed By: #### L [id number] ####[facility] ([facility])[address] [place] [address] POIKILOCYTOSIS (PRESENCE) IN BLOOD BY LIGHT MICROSCOPY Moderate Normal [facility] Comment on above: Performed By: #### L [id number] ####[facility] ([facility])[address] [place] [address] POLYCHROMASIA IN BLOOD BY LIGHT MICROSCOPY Slight Normal [facility] Comment on above: Performed By: #### L [id number] ####[facility] ([facility])[address] [place] [address] OPNOTEon 11-29-2022 OPNOTE [facility] PATHOLOGY REVIEWon PATHOLOGY REVIEW Electronically cecelia d by Susan Rivera MD on 11/29/22 at 10:14 AM. [facility] Comment on above: Performed By: #### L [id number] ####[facility] ([facility])[address] [place] [address] PHOSPHORUSon 11-29-2022 Magnesium [Mass/Vol] 2.9 mg/dL Normal 2.5-5.0 [facility] Comment on above: Performed By: #### L [id number] ####[facility] ([facility])[address] [place] [address] POCT GLUCOSE METER UNSOLICIT ED RESULTSon 11-29-2022 Glucose [Mass/Vol] 121 mg/dL High 70-105 [facility] Comment on above: Result Comment: jgig and Performed By: #### L [id number] ####[facility] ([facility])[address] [place] [address] Glucose [Mass/Vol] 167 mg/dL High 70-105 [facility] Comment on above: Result Comment: edith dyg Performed By: #### L [id number] ####[facility] ([facility])[address] [place] [address] Glucose [Mass/Vol] 242 mg/dL High 70-105 [facility] Comment on above: Result Comment: [email or web address] Performed By: #### L [id number] ####[facility] ([facility])[address] [place] [address] POTASSIUM, WHOLE BLOODon Potassium [Moles/Vol] 5.0 mmol/L Normal 3.5-5.1 [facility] Comment on above: Performed By: #### P OTASSIUM, WHOLE BLOOD ####[facility] [id number] [place] [address] [facility] Potassium [Moles/Vol] 5.2 mmol/L High 3.5-5.1 [facility] Comment on above: Performed By: #### P OTASSIUM, WHOLE BLOOD ####[facility] [id number] [place] [address] [facility] PROTIME-INRon 11-29-2022 INR IN PPP BY COAGULATION ASSAY 1.53 High 0.90-1.10 [facility] Comment on above: Result Comment: ACCC P [...] CHEST 1995;[id number]. Performed By: #### L [id number] ####[facility] ([facility])[address] [place] [address] PROTHROMBIN TIME (PT) IN PPP BY COAGULATION ASSAY 18.2 Seconds High 12.3-14.8 [facility] Comment on above: Performed By: #### L [id number] ####[facility] ([facility])[address] [place] [address] SODIUM, WHOLE BLOODon 2022 SODIUM, WHOLE BLOOD 126 Low 136-145 [facility] Comment on above: Performed By: #### S ODIUM, WHOLE BLOOD ####[facility] [id number] [place] [address] [place] SODIUM, WHOLE BLOOD 125 Low 136-145 [facility] Comment on above: Performed By: #### S ODIUM, WHOLE BLOOD ####[facility] [id number] [place] [address] [place] TROPONIN Ion 11-29-2022 Troponin I.cardiac [Mass/Vol] 0.01 ng/mL Normal 0.00-0.04 [facility] Comment on above: Performed By: #### L [id number] ####[facility] ([facility])[address] [place] [address] TYPE AND SCREENon 11-29-2022 AB SCREEN Negative Normal [facility] Comment on above: Performed By: #### L [id number] ####[facility], ABO group Nom (Bld) O Normal [facility] Comment on above: Performed By: #### L [id number] ####[facility], RH TYPE IN BLOOD Positive Normal [facility] Comment on above: Performed By: #### L [id number] ####[facility], URINALYSIS MICROSCOPIC WITH REFLEX CULTUREon 11-29-2022 CASTS IN URINE Normal [facility] Comment on above: Performed By: #### L [id number] ####[facility] ([facility])[address] [place] [address] CRYSTALS IN URINE Normal [facility] Comment on above: Performed By: #### L [id number] ####[facility] ([facility])[address] [place] [address] LEUKOCYTE ESTERASE PRESENCE IN URINE BY TEST STRIP Small Abnormal Negative [facility] Comment on above: Performed By: #### L [id number] ####[facility] ([facility])[address] [place] [address] Order Comment: 0000 Performed By: #### L [id number] ####[facility] ([facility])[address] [place] [address] MUCUS (#/HPF) IN URINE SEDIMENT Occasional Normal None Seen, Occasional, Few [facility] Comment on above: Performed By: #### L [id number] ####[facility] ([facility])[address] [place] [address] NITRITE PRESENCE IN URINE Negative Normal Negative [facility] Comment on above: Performed By: #### L [id number] ####[facility] ([facility])[address] [place] [address] Order Comment: 0000 Performed By: #### L [id number] ####[facility] ([facility])[address] [place] [address] OTHER MICROSCOPIC ELEMENTS Normal [facility] Comment on above: Performed By: #### L [id number] ####[facility] ([facility])[address] [place] [address] RBC (#/HPF) IN URINE SEDIMENT 3-5 Abnormal None Seen [facility] Comment on above: Performed By: #### L [id number] ####[facility] ([facility])[address] [place] [address] SQUAMOUS EPITHELIAL CELLS (#/HPF) IN URINE SEDIMENT None Seen Normal None Seen, Occasional [facility] Comment on above: Performed By: #### L [id number] ####[facility] ([facility])[address] [place] [address] WBC (LEUKOCYTE) (#/HPF) IN URINE SEDIMENT 11-20 Abnormal None Seen [facility] Comment on above: Performed By: #### L [id number] ####[facility] ([facility])[address] [place] [address] YEAST, BUDDING (#/HPF) IN URINE Occasional Abnormal None Seen [facility] Comment on above: Performed By: #### L [id number] ####[facility] ([facility])[address] [place] [address] URINALYSIS WITH REFLEX CULTU REon 11-29-2022 BILIRUBIN, TOTAL PRESENCE IN URINE Negative Normal Negative [facility] Comment on above: Order Comment: 0000 Performed By: #### L [id number] ####[facility] ([facility])[address] [place] [address] Clarity (U) Slightly Cloudy Abnormal Clear [facility] Comment on above: Order Comment: 0000 Performed By: #### L [id number] ####[facility] ([facility])[address] [place] [address] Color (U) Dark Yellow Normal Yellow, Dark Yellow, Straw [facility] Comment on above: Order Comment: 0000 Performed By: #### L [id number] ####[facility] ([facility])[address] [place] [address] Glucose (U) [Mass/Vol] Negative [facility] above: Order Comment: 0000 Performed By: #### L [id number] ####[facility] ([facility])[address] [place] [address] HEMOGLOBIN PRESENCE IN URINE Trace Abnormal Negative [facility] Comment on above: Order Comment: 0000 Performed By: #### L [id number] ####[facility] ([facility])[address] [place] [address] Ketones Ql (U) Negative Normal Negative [facility] Comment on above: Order Comment: 0000 Performed By: #### L [id number] ####[facility] ([facility])[address] [place] [address] pH (U) 6.0 [pH] Normal 5.0-8.0 [facility] Comment on above: Order Comment: 0000 Performed By: #### L [id number] ####[facility] ([facility])[address] [place] [address] Protein (U) [Mass/Vol] Negative [facility] Comment on above: Order Comment: 0000 Performed By: #### L [id number] ####[facility] ([facility])[address] [place] [address] Specific gravity (U) [Rel density] 1.020 Normal 1.015-1.020 [facility] Comment on above: Order Comment: 0000 Performed By: #### L [id number] ####[facility] ([facility])[address] [place] [address] UROBILINOGEN (EU/DL) IN URINE 1.0 EU/dL Normal Negative [facility] Comment on above: Order Comment: 0000 Performed By: #### L [id number] ####[facility] ([facility])[address] [place] [address] URINE CULTURE, ROUTINEon Ampicillin [Susc] >16 Resistant [facility] Comment on above: Performed By: #### L [id number] ####[facility] ([facility])[address] [place] [address] Ampicillin+Sulbactam [Susc] >16/8 Resistant [facility] Comment on above: Performed By: #### L [id number] ####[facility] ([facility])[address] [place] [address] Aztreonam [Susc] >16 Resistant [facility] Comment on above: Performed By: #### L [id number] ####[facility] ([facility])[address] [place] [address] ceFAZolin [Susc] >16 Resistant [facility] Comment on above: Performed By: #### L [id number] ####[facility] ([facility])[address] [place] [address] Cefepime [Susc] 16 ug/ml Resistant [facility] Comment on above: Performed By: #### L [id number] ####[facility] ([facility])[address] [place] [address] cefTRIAXone [Susc] >32 Resistant [facility] Comment on above: Performed By: #### L [id number] ####[facility] ([facility])[address] [place] [address] Ciprofloxacin [Susc] 0.5 ug/ml Invalid Interpretation Code [facility] Comment on above: Performed By: #### L [id number] ####[facility] ([facility])[address] [place] [address] Ertapenem [Susc] 2 ug/ml Resistant [facility] Comment on above: Performed By: #### L [id number] ####[facility] ([facility])[address] [place] [address] Gentamicin [Susc] <=2 Susceptible [facility] Comment on above: Performed By: #### L [id number] ####[facility] ([facility])[address] [place] [address] Meropenem [Susc] <=0.5 Susceptible [facility] Comment on above: Performed By: #### L [id number] ####[facility] ([facility])[address] [place] [address] Nitrofurantoin [Susc] >64 Resistant [facility] Comment on above: Performed By: #### L [id number] ####[facility] ([facility])[address] [place] [address] Piperacillin+Tazobacta m [Susc] >64/4 Resistant [facility] Comment on above: Performed By: #### L [id number] ####[facility] ([facility])[address] [place] [address] Tobramycin [Susc] <=2 Susceptible [facility] Comment on above: Performed By: #### L [id number] ####[facility] ([facility])[address] [place] [address] Trimethoprim+Sulfameth oxazole [Susc] <=0.5/9.5 Susceptible [facility] Comment on above: Performed By: #### L [id number] ####[facility] ([facility])[address] [place] [address] Consent for Treatmenton 11-10 Consent for Treatment [id number]:[id number] Normal [facility] Heart and Vascular Office/Cl inic Noteon 11-22-2022 Heart and Vascular Office/Clinic Note Normal [facility] Comment on above: Result Comment: Elec tronically Signed By: Vickey WISE, Erwin Evans\.br\Date and Time Signed: 11/22/22 12:14 EST 36on 11-17-2022 36 Normal [facility] 30on 11-16-2022 30 The patient is Moder ately Stable - Low risk of patient condition declining or worsening The patient's goals for the shift include Comfort The clinical goals for the shift include Stable vitals, hemodynamics Normal [facility] 30 Normal [facility] 30 [facility] BASIC METABOLIC PANELon Anion gap [Moles/Vol] 4 mmol/L Low 7-20 [facility] Comment on above: Performed By: #### L [id number] ####[facility] ([facility])[address] [place] [address] Calcium [Mass/Vol] 7.8 mg/dL Low 8.6-10.3 [facility] Comment on above: Performed By: #### L [id number] ####[facility] ([facility])[address] [place] [address] Chloride [Moles/Vol] 102 mmol/L Normal 98-107 [facility] Comment on above: Performed By: #### L [id number] ####[facility] ([facility])[address] [place] [address] CO2 [Moles/Vol] 26 mmol/L Normal 21-31 [facility] Comment on above: Performed By: #### L [id number] ####[facility] ([facility])[address] [place] [address] Creatinine [Mass/Vol] 0.55 mg/dL Low 0.70-1.30 [facility] Comment on above: Performed By: #### L [id number] ####[facility] ([facility])[address] [place] [address] GLOMERULAR FILTRATION RATE ML/MIN/1.73 SQ M.PREDICTED 101.9 mL/min/1.73m*2 Normal >60.0 [facility] Comment on above: Result Comment: The [facility]???s estimated glomerular filtration rate (eGFR) will no [...] of individuals. Performed By: #### L [id number] ####[facility] ([facility])[address] [place] [address] Glucose [Mass/Vol] 127 mg/dL High 70-100 [facility] Comment on above: Performed By: #### L [id number] ####[facility] ([facility])[address] [place] [place] [address] Potassium [Moles/Vol] 3.8 mmol/L Normal 3.5-5.1 [facility] Comment on above: Performed By: #### L [id number] ####[facility] ([facility])[address] [place] [address] Sodium [Moles/Vol] 132 mmol/L Low 136-145 [facility] Comment on above: Performed By: #### L [id number] ####[facility] ([facility])[address] [place] [place] [address] Urea nitrogen [Mass/Vol] 9 mg/dL Normal 7-25 [facility] Comment on above: Performed By: #### L [id number] ####[facility] ([facility])[address] [place] [address] UREA NITROGEN/CREATININE (MASS RATIO) IN SER/PLAS 16.36 Normal [facility] Comment on above: Performed By: #### L [id number] ####[facility] ([facility])[address] [place] [address] CBCon 02-07-2023 Erythrocyte distribution width (RBC) [Ratio] 18.7 % High 11.5-15.0 [facility] Comment on above: Performed By: #### L [id number] ####[facility] ([facility])[address] [place] [place] [address] ERYTHROCYTE MEAN CORPUSCULAR HEMOGLOBIN CONCENTRATION (G/DL) BY AUTOMATED 33.5 g/dL Normal 32.0-35.0 [facility] Comment on above: Performed By: #### L [id number] ####[facility] ([facility])[address] [place] [address] Hematocrit (Bld) [Volume fraction] 24.8 % Low 39.0-55.0 [facility] Comment on above: Performed By: #### L [id number] ####[facility] ([facility])[address] [place] [address] Hemoglobin (Bld) [Mass/Vol] 8.3 g/dL Low 13.0-17.0 [facility] Comment on above: Performed By: #### L [id number] ####[facility] ([facility])[address] [place] [address] IMMATURE PLATELET FRACTION % 6.8 % High 0.8-6.3 [facility] Comment on above: Performed By: #### L [id number] ####[facility] [place] [address] MCH (RBC) [Entitic mass] 32.8 pg Normal 27.0-33.0 [facility] Comment on above: Performed By: #### L [id number] ####[facility] ([facility])[address] [place] [address] MCV (RBC) [Entitic vol] 98.0 fL Normal 82.0-98.0 [facility] Comment on above: Performed By: #### L [id number] ####[facility] ([facility])[address] [place] [address] PLATELETS (10*3/UL) IN BLOOD AUTOMATED COUNT 96 10*3/uL Low 150-400 [facility] Comment on above: Performed By: #### L [id number] ####[facility] ([facility])[address] [place] [address] RBC (Bld) [#/Vol] 2.53 10*6/uL Low 4.20-5.70 [facility] Comment on above: Performed By: #### L [id number] ####[facility] ([facility])[address] [place] [address] WBC (Bld) [#/Vol] 4.36 10*3/uL Normal 4.00-10.60 [facility] Comment on above: Performed By: #### L [id number] ####[facility] ([facility])[address] [place] [address] DSon 11-16-2022 DS Normal [facility] HEPARIN LEVELon 11-16-2022 HEPARIN UNFRACTIONATED (U/ML) IN PPP BY CHROMOGENIC METHOD 0.38 IU/mL Normal 0.3-0.7 [facility] Comment on above: Order Comment: Check anti-Xa level every 6 hours while on heparin infusion, or per protocol. Result Comment: Davidson roxaban and Apixaban will interfere with the anti Xa assay used to monitor UFH and LMWH. Performed By: #### L [id number] ####[facility] ([facility])[address] [place] [address] HEPARIN UNFRACTIONATED (U/ML) IN PPP BY CHROMOGENIC METHOD 0.25 IU/mL Low 0.3-0.7 [facility] Comment on above: Order Comment: Check anti-Xa level every 6 hours while on heparin infusion, or per protocol. Result Comment: Masha roxaban and Apixaban will interfere with the anti Xa assay used to monitor UFH and LMWH. Performed By: #### L [id number] ####[facility] ([facility])[address] [place] [address] HEPARIN UNFRACTIONATED (U/ML) IN PPP BY CHROMOGENIC METHOD 0.34 IU/mL Normal 0.3-0.7 [facility] Comment on above: Order Comment: Check anti-Xa level every 6 hours while on heparin infusion, or per protocol. Result Comment: Masha roxaban and Apixaban will interfere with the anti Xa assay used to monitor UFH and LMWH. Performed By: #### L [id number] ####[facility] ([facility])[address] [place] [address] NURSNOTEon 11-16-2022 NURSNOTE Pt. Discharged to [facility] with . Discharge instructions reviewed, both patient and spouse verbalize understanding and deny any further questions or concerns. Wound care orders reviewed in detail, with patient and both verbalizing understanding. Normal [facility] NURSNOTE Boles removed at bed side by vascular surgeon Dr. Hurd. Normal [facility] Orders Onlyon 11-16-2022 Orders Only [facility] POCT GLUCOSE METER UNSOLICIT ED RESULTSon 11-16-2022 Glucose [Mass/Vol] 161 mg/dL High 70-105 [facility] Comment on above: Result Comment: [facility] [email or web address] Performed By: #### L [id number] ####[facility] ([facility])[address] [place] [address] 30on 11-15-2022 30 Normal [facility] BASIC METABOLIC PANELon Anion gap [Moles/Vol] 0 mmol/L Low 7-20 [facility] Comment on above: Performed By: #### L [id number] ####[facility] [place] [address] Calcium [Mass/Vol] 7.5 mg/dL Low 8.6-10.3 [facility] Comment on above: Performed By: #### L [id number] ####[facility] ([facility])[address] [place] [address] Chloride [Moles/Vol] 104 mmol/L Normal 98-107 [facility] Comment on above: Performed By: #### L [id number] ####[facility] ([facility])[address] [facility] [address] CO2 [Moles/Vol] 29 mmol/L Normal 21-31 [facility] Comment on above: Performed By: #### L [id number] ####[facility] ([facility])[address] [place] [address] Creatinine [Mass/Vol] 0.67 mg/dL Low 0.70-1.30 [facility] Comment on above: Performed By: #### L [id number] ####[facility] ([facility])[address] [place] [address] GLOMERULAR FILTRATION RATE ML/MIN/1.73 SQ M.PREDICTED 94.0 mL/min/1.73m*2 Normal >60.0 [facility] Comment on above: Result Comment: [facility]???s estimated glomerular filtration rate (eGFR) will no [...] of individuals. Performed By: #### L [id number] ####[facility] ([facility])[address] [place] [address] Glucose [Mass/Vol] 113 mg/dL High 70-100 [facility] Comment on above: Performed By: #### L [id number] ####[facility] ([facility])[address] [place] [address] Potassium [Moles/Vol] 4.0 mmol/L Normal 3.5-5.1 [facility] Comment on above: Performed By: #### L [id number] ####[facility] ([facility])[address] [place] [address] Sodium [Moles/Vol] 133 mmol/L Low 136-145 [facility] Comment on above: Performed By: #### L [id number] ####[facility] ([facility])[address] [address] Urea nitrogen [Mass/Vol] 18 mg/dL Normal 7-25 [facility] Comment on above: Performed By: #### L [id number] ####[facility] [place] [address] UREA NITROGEN/CREATININE (MASS RATIO) IN SER/PLAS 26.87 Normal [facility] Comment on above: Performed By: #### L [id number] ####[facility] ([facility])[address] [address] CBCon 11-15-2022 Erythrocyte distribution width (RBC) [Ratio] 19.2 % High 11.5-15.0 [facility] Comment on above: Performed By: #### L [id number] ####[facility] ([facility])[address] [address] ERYTHROCYTE MEAN CORPUSCULAR HEMOGLOBIN CONCENTRATION (G/DL) BY AUTOMATED 33.2 g/dL Normal 32.0-35.0 [facility] Comment on above: Performed By: #### L [id number] ####[facility], [place] [address] Hematocrit (Bld) [Volume fraction] 24.7 % Low 39.0-55.0 [facility] Comment on above: Performed By: #### L [id number] ####[facility] ([facility])[address], [place] [address] Hemoglobin (Bld) [Mass/Vol] 8.2 g/dL Low 13.0-17.0 [facility] Comment on above: Performed By: #### L [id number] ####[facility] ([facility])[address], [place] [address] IMMATURE PLATELET FRACTION % 6.8 % High 0.8-6.3 [facility] Comment on above: Performed By: #### L [id number] ####[facility] ([facility])[address] [place] [address] MCH (RBC) [Entitic mass] 31.9 pg Normal 27.0-33.0 [facility] Comment on above: Performed By: #### L [id number] ####[facility] ([facility])[address] [address] MCV (RBC) [Entitic vol] 96.1 fL Normal 82.0-98.0 [facility] Comment on above: Performed By: #### L [id number] ####[facility] ([facility])[address] [place] [address] PLATELETS (10*3/UL) IN BLOOD AUTOMATED COUNT 102 10*3/uL Low 150-400 [facility] Comment on above: Performed By: #### L [id number] ####[facility] ([facility])[address] [place] [address] RBC (Bld) [#/Vol] 2.57 10*6/uL Low 4.20-5.70 [facility] Comment on above: Performed By: #### L [id number] ####[facility] ([facility])[address] [place] [address] WBC (Bld) [#/Vol] 4.81 10*3/uL Normal 4.00-10.60 [facility] Comment on above: Performed By: #### L [id number] ####[facility] ([facility])[address] [place] [address] CONSULTon 11-15-2022 CONSULT Normal [facility] HEMOGLOBIN AND HEMATOCRIT, B LOODon 11-15-2022 Hematocrit (Bld) [Volume fraction] 26.7 % Low 39.0-55.0 [facility] Comment on above: Performed By: #### L [id number] ####[facility] [place] [address] Hemoglobin (Bld) [Mass/Vol] 8.9 g/dL Low 13.0-17.0 [facility] Comment on above: Performed By: #### L [id number] ####[facility] ([facility])[address] [place] [address] HEPARIN LEVELon 11-15-2022 HEPARIN UNFRACTIONATED (U/ML) IN PPP BY CHROMOGENIC METHOD 0.46 IU/mL Normal 0.3-0.7 [facility] Comment on above: Order Comment: Check anti-Xa level every 6 hours while on heparin infusion, or per protocol. Result Comment: Davidson roxaban and Apixaban will interfere with the anti Xa assay used to monitor UFH and LMWH. Performed By: #### L [id number] ####[facility] ([facility])[address] [place] [address] HEPARIN UNFRACTIONATED (U/ML) IN PPP BY CHROMOGENIC METHOD 0.45 IU/mL Normal 0.3-0.7 [facility] Comment on above: Order Comment: Check anti-Xa level every 6 hours while on heparin infusion, or per protocol. Result Comment: Davidson roxaban and Apixaban will interfere with the anti Xa assay used to monitor UFH and LMWH. Performed By: #### L [id number] ####[facility] ([facility])[address] [place] [address] POCT GLUCOSE METER UNSOLICIT ED RESULTSon 11-15-2022 Glucose [Mass/Vol] 201 mg/dL High 70-105 [facility] Comment on above: Result Comment: [email or web address] Performed By: #### L [id number] ####[facility] ([facility])[address] [place] [address] Glucose [Mass/Vol] 103 mg/dL Normal 70-105 [facility] Comment on above: Result Comment: [email or web address] and Performed By: #### L [id number] ####[facility] ([facility])[address] [place] [address] Glucose [Mass/Vol] 219 mg/dL High 70-105 [facility] Comment on above: Result Comment: [email or web address] and Performed By: #### L [id number] ####[facility] ([facility])[address] [place] [address] Glucose [Mass/Vol] 125 mg/dL High 70-105 [facility] Comment on above: Result Comment: [email or web address] and Performed By: #### L [id number] ####[facility] [place] [address] 29on 11-14-2022 29 Addendum created 03/01 by oMdesto Hu DO Clinical Note Signed, SmartForm saved Normal [facility] 30on 11-14-2022 30 Normal [facility] APTTon 11-14-2022 ACTIVATED PARTIAL THROMBOPLASTIN TIME IN PPP BY COAGULATION ASSAY 48.1 Seconds High 25.0-35.0 [facility] Comment on above: Performed By: #### L [id number] ####[facility] [place] [address] BASIC METABOLIC PANELon Anion gap [Moles/Vol] 1 mmol/L Low 7-20 [facility] Comment on above: Performed By: #### L [id number] ####[facility] [place] [address] Calcium [Mass/Vol] 7.6 mg/dL Low 8.6-10.3 [facility] Comment on above: Performed By: #### L [id number] ####[facility] ([facility])[address] [place] [address] Chloride [Moles/Vol] 103 mmol/L Normal 98-107 [facility] Comment on above: Performed By: #### L [id number] ####[facility] [place] [address] CO2 [Moles/Vol] 28 mmol/L Normal 21-31 [facility] Comment on above: Performed By: #### L [id number] ####[facility] ([facility])[address] [place] [address] Creatinine [Mass/Vol] 0.52 mg/dL Low 0.70-1.30 [facility] Comment on above: Performed By: #### L [id number] ####[facility] ([facility])[address] [place] [address] GLOMERULAR FILTRATION RATE ML/MIN/1.73 SQ M.PREDICTED 104.3 mL/min/1.73m*2 Normal >60.0 [facility] Comment on above: Result Comment: [facility]???s estimated glomerular filtration rate (eGFR) will no [...] of individuals. Performed By: #### L [id number] ####[facility] ([facility])[address] [place] [address] Glucose [Mass/Vol] 157 mg/dL High 70-100 [facility] Comment on above: Performed By: #### L [id number] ####[facility] ([facility])[address] [place] [address] Potassium [Moles/Vol] 3.7 mmol/L Normal 3.5-5.1 [facility] Comment on above: Performed By: #### L [id number] ####[facility] ([facility])[address] [place] [address] Sodium [Moles/Vol] 132 mmol/L Low 136-145 [facility] Comment on above: Performed By: #### L [id number] ####[facility] ([facility])[address] [place] [address] Urea nitrogen [Mass/Vol] 15 mg/dL Normal 7-25 [facility] Comment on above: Performed By: #### L [id number] ####[facility] ([facility])[address] [place] [address] UREA NITROGEN/CREATININE (MASS RATIO) IN SER/PLAS 28.85 Normal [facility] Comment on above: Performed By: #### L [id number] ####[facility] ([facility])[address] [place] [address] CBCon 11-14-2022 Erythrocyte distribution width (RBC) [Ratio] 18.7 % High 11.5-15.0 [facility] Comment on above: Performed By: #### L [id number] ####[facility] ([facility])[address] [address] ERYTHROCYTE MEAN CORPUSCULAR HEMOGLOBIN CONCENTRATION (G/DL) BY AUTOMATED 34.3 g/dL Normal 32.0-35.0 [facility] Comment on above: Performed By: #### L [id number] ####[facility] ([facility])[address] [place] [address] Hematocrit (Bld) [Volume fraction] 19.8 % Low 39.0-55.0 [facility] Comment on above: Performed By: #### L [id number] ####[facility] ([facility])[address] [place] [address] Hemoglobin (Bld) [Mass/Vol] 6.8 g/dL Low 13.0-17.0 [facility] Comment on above: Performed By: #### L [id number] ####[facility] ([facility])[address] [place] [address] IMMATURE PLATELET FRACTION % 7.4 % High 0.8-6.3 [facility] Comment on above: Performed By: #### L [id number] ####[facility] [place] [address] MCH (RBC) [Entitic mass] 32.9 pg Normal 27.0-33.0 [facility] Comment on above: Performed By: #### L [id number] ####[facility] [place] [address] MCV (RBC) [Entitic vol] 95.7 fL Normal 82.0-98.0 [facility] Comment on above: Performed By: #### L [id number] ####[facility] ([facility])[address] [place] [address] PLATELETS (10*3/UL) IN BLOOD AUTOMATED COUNT 83 10*3/uL Low 150-400 [facility] Comment on above: Performed By: #### L [id number] ####[facility] ([facility])[address] [place] [address] RBC (Bld) [#/Vol] 2.07 10*6/uL Low 4.20-5.70 [facility] Comment on above: Performed By: #### L [id number] ####[facility] ([facility])[address] [address] WBC (Bld) [#/Vol] 4.55 10*3/uL Normal 4.00-10.60 [facility] Comment on above: Performed By: #### L [id number] ####[facility] ([facility])[address] [place] [address] CONSULTon 11-14-2022 CONSULT Normal [facility] HEMOGLOBIN AND HEMATOCRIT, B LOODon 11-14-2022 Hematocrit (Bld) [Volume fraction] 28.2 % Low 39.0-55.0 [facility] Comment on above: Performed By: #### L [id number] ####[facility] ([facility])[address] [place] [address] Hemoglobin (Bld) [Mass/Vol] 9.3 g/dL Low 13.0-17.0 [facility] Comment on above: Performed By: #### L [id number] ####[facility] ([facility])[address] [place] [address] Hematocrit (Bld) [Volume fraction] 27.3 % Low 39.0-55.0 [facility] Comment on above: Performed By: #### L [id number] ####[facility] ([facility])[address] [place] [address] Hemoglobin (Bld) [Mass/Vol] 9.3 g/dL Low 13.0-17.0 [facility] Comment on above: Performed By: #### L [id number] ####[facility] ([facility])[address] [place] [address] HEPARIN LEVELon 11-14-2022 HEPARIN UNFRACTIONATED (U/ML) IN PPP BY CHROMOGENIC METHOD 0.86 IU/mL High 0.3-0.7 [facility] Comment on above: Order Comment: Check anti-Xa level every 6 hours while on heparin infusion, or per protocol. Result Comment: Davidson roxaban and Apixaban will interfere with the anti Xa assay used to monitor UFH and LMWH. Performed By: #### L [id number] ####[facility] ([facility])[address] [place] [address] HEPARIN UNFRACTIONATED (U/ML) IN PPP BY CHROMOGENIC METHOD >1.00 Critically high 0.3-0.7 [facility] Comment on above: Order Comment: Check anti-Xa level every 6 hours while on heparin infusion, or per protocol. Result Comment: Masha roxaban and Apixaban will interfere with the anti Xa assay used to monitor UFH and LMWH. Performed By: #### L [id number] ####[facility] ([facility])[address] [place] [address] POCT GLUCOSE METER UNSOLICIT ED RESULTSon 11-14-2022 Glucose [Mass/Vol] 194 mg/dL High 70-105 [facility] Comment on above: Result Comment: pmen doz Performed By: #### L [id number] ####[facility] ([facility])[address] [place] [address] Glucose [Mass/Vol] 148 mg/dL High 70-105 [facility] Comment on above: Result Comment: rsmaynor wendy Performed By: #### L [id number] ####[facility] ([facility])[address] [place] [address] Glucose [Mass/Vol] 124 mg/dL High 70-105 [facility] Comment on above: Result Comment: rsuz wendy Performed By: #### L [id number] ####[facility] ([facility])[address] [place] [address] Glucose [Mass/Vol] 139 mg/dL High 70-105 [facility] Comment on above: Result Comment: [email or web address] nguyen Performed By: #### L [id number] ####[facility] ([facility])[address] [place] [address] ANESon 11-13-2022 ANES Normal [facility] ANES Normal [facility] APTTon 11-13-2022 ACTIVATED PARTIAL THROMBOPLASTIN TIME IN PPP BY COAGULATION ASSAY 37.1 Seconds High 25.0-35.0 [facility] Comment on above: Performed By: #### L [id number] ####[facility] ([facility])[address] [place] [address] ARTERIAL BLOOD GAS WITH CO-O XIMETRYon 11-13-2022 Base excess Calc (Bld) [Moles/Vol] -1.6000 mmol/L Normal -2.0-3.0 [facility] Comment on above: Performed By: #### L [id number] ####[facility] [id number] [place] [address] [facility] CARBOXYHEMOGLOBIN/HEMO GLOBIN TOTAL % IN BLOOD 3.3 % High 0.0-3.0 [facility] Comment on above: Performed By: #### L [id number] ####[facility] [id number] [place] [address] [place] CO2 (Bld) [Partial pressure] 36 mm[Hg] Normal 35-48 [facility] Comment on above: Performed By: #### L [id number] ####[facility] [id number] [place] [address] [place] DEOXYGENATED HEMOGLOBIN IN BLOOD 0.0 % Low 1-5 [facility] Comment on above: Performed By: #### L [id number] ####[facility] [id number] [place] [address] [place] HCO3 (Bld) [Moles/Vol] 22.8 mmol/L Normal 21.0-28.0 [facility] Comment on above: Performed By: #### L [id number] ####[facility] [id number] [address] Hemoglobin (Bld) [Mass/Vol] 8.9 g/dL Low 11.7-17.4 [facility] Comment on above: Performed By: #### L [id number] ####[facility] [id number] [address] METHEMOGLOBIN/100 IN BLOOD 1.1 % Normal 0.0-1.5 [facility] Comment on above: Performed By: #### L [id number] ####[facility] [id number] [place] [address] Oxygen (Bld) [Partial pressure] 184 mm[Hg] High 83-100 [facility] Comment on above: Performed By: #### L [id number] ####[facility] [id number] [place] [address] OXYGEN SATURATION (%) IN ARTERIAL BLOOD 100.0 % High 94.0-98.0 [facility] Comment on above: Performed By: #### L [id number] ####[facility] [id number] [address] OXYGENATED HEMOGLOBIN IN BLOOD 95.6 % High 90.0-95.0 [facility] Comment on above: Performed By: #### L [id number] ####[facility] [id number] [place] [address] [facility] pH (Bld) 7.41 [pH] Normal 7.35-7.45 [facility] Comment on above: Performed By: #### L [id number] ####[facility] [id number] [place] [id number] [facility] SOURCE OF OXYGEN Vent Normal [facility] Comment on above: Performed By: #### L [id number] ####[facility] [id number] [place] [address] [facility] Anesthesiaon 11-13-2022 Anesthesia Normal [facility] BASIC METABOLIC PANELon 02-0 Anion gap [Moles/Vol] 6 mmol/L Low 7-20 [facility] Comment on above: Performed By: #### L [id number] ####[facility] ([facility])[address] [place] [address] Calcium [Mass/Vol] 7.7 mg/dL Low 8.6-10.3 [facility] Comment on above: Performed By: #### L [id number] ####[facility] ([facility])[address] [place] [address] Chloride [Moles/Vol] 102 mmol/L Normal 98-107 [facility] Comment on above: Performed By: #### L [id number] ####[facility] ([facility])[address] [place] [address] CO2 [Moles/Vol] 24 mmol/L Normal 21-31 [facility] Comment on above: Performed By: #### L [id number] ####[facility] ([facility])[address] [place] [address] Creatinine [Mass/Vol] 0.56 mg/dL Low 0.70-1.30 [facility] Comment on above: Performed By: #### L [id number] ####[facility] ([facility])[address] [place] [address] GLOMERULAR FILTRATION RATE ML/MIN/1.73 SQ M.PREDICTED 101.2 mL/min/1.73m*2 Normal >60.0 [facility] Comment on above: Result Comment: [facility]???s estimated glomerular filtration rate (eGFR) will no [...] of individuals. Performed By: #### L [id number] ####[facility] ([facility])[address] [place] [address] Glucose [Mass/Vol] 181 mg/dL High 70-100 [facility] Comment on above: Performed By: #### L [id number] ####[facility] ([facility])[address] [place] [address] Potassium [Moles/Vol] 4.0 mmol/L Normal 3.5-5.1 [facility] Comment on above: Performed By: #### L [id number] ####[facility] ([facility])[address] [place] [address] Sodium [Moles/Vol] 132 mmol/L Low 136-145 [facility] Comment on above: Performed By: #### L [id number] ####[facility] ([facility])[address] [place] [address] Urea nitrogen [Mass/Vol] 11 mg/dL Normal 7-25 [facility] Comment on above: Performed By: #### L [id number] ####[facility] ([facility])[address] [place] [address] UREA NITROGEN/CREATININE (MASS RATIO) IN SER/PLAS 19.64 Normal [facility] Comment on above: Performed By: #### L [id number] ####[facility] ([facility])[address] [place] [address] Anion gap [Moles/Vol] 5 mmol/L Low 7-20 [facility] Comment on above: Performed By: #### L [id number] ####[facility] ([facility])[address] [place] [address] Calcium [Mass/Vol] 8.6 mg/dL Normal 8.6-10.3 [facility] Comment on above: Performed By: #### L [id number] ####[facility] ([facility])[address] [place] [address] Chloride [Moles/Vol] 99 mmol/L Normal 98-107 [facility] Comment on above: Performed By: #### L [id number] ####[facility] [place] [address] CO2 [Moles/Vol] 27 mmol/L Normal 21-31 [facility] Comment on above: Performed By: #### L [id number] ####[facility] ([facility])[address] [place] [address] Creatinine [Mass/Vol] 0.63 mg/dL Low 0.70-1.30 [facility] Comment on above: Performed By: #### L [id number] ####[facility] ([facility])[address] [place] [address] GLOMERULAR FILTRATION RATE ML/MIN/1.73 SQ M.PREDICTED 96.4 mL/min/1.73m*2 Normal >60.0 [facility] Comment on above: Result Comment: [facility]???s estimated glomerular filtration rate (eGFR) will no [...] of individuals. Performed By: #### L [id number] ####[facility] [place] [address] Glucose [Mass/Vol] 119 mg/dL High 70-100 [facility] Comment on above: Performed By: #### L [id number] ####[facility] [place] [address] Potassium [Moles/Vol] 4.0 mmol/L Normal 3.5-5.1 [facility] Comment on above: Performed By: #### L [id number] ####[facility] [place] [address] Sodium [Moles/Vol] 131 mmol/L Low 136-145 [facility] Comment on above: Performed By: #### L [id number] ####[facility] ([facility])[address] [place] [address] Urea nitrogen [Mass/Vol] 12 mg/dL Normal 7-25 [facility] Comment on above: Performed By: #### L [id number] ####[facility] ([facility])[address] [place] [address] UREA NITROGEN/CREATININE (MASS RATIO) IN SER/PLAS 19.05 Normal [facility] Comment on above: Performed By: #### L [id number] ####[facility] ([facility])[address] [place] [address] CALCIUM, IONIZEDon 3 CALCIUM IONIZED (MMOL/L) IN BLOOD 1.14 mmol/L Low 1.15-1.33 [facility] Comment on above: Performed By: #### C ALCIUM, IONIZED ####[facility] [id number] [place] [address] [place] CARDIAC MARCO A ADMITon 023 CK [Catalytic activity/Vol] 109 U/L Normal 39-308 [facility] Comment on above: Performed By: #### C ROSALINA, CMP #### [facility] [address] [address] [address] Joselyn Coffey CK.MB [Mass/Vol] 0.94 ng/mL Normal <=3.60 [facility] Comment on above: Performed By: #### C ROSALINA, CMP #### [facility] [address] [place] [address] [address] Joselyn Coffey HSTROP 8.1 pg/mL Normal 4.0-76.1 [facility] Comment on above: Result Comment: CUT- OFF POINTS HAVE BEEN ESTABLISHED BASED ON THE FOURTH UNIVERSAL DEFINITIONS OF MYOCARDIAL INFARCTION. THE UPPER REFERENCE LIMIT (URL) OF TROPONIN, DEFINED THE 99TH PERCENTILE OF cTnI DISTRIBUTION IN A REFERENCE POPULATION, HAS BEEN CONFIRMED THE DECISION THRESHOLD FOR AK DIAGNOSIS. Performed By: #### C ROSALINA, CMP #### [facility] [address] [address] [address] Joselyn Coffey CHULA 144 ng/mL Critically high 16-96 [facility] Comment on above: Performed By: #### C CARLYNM, CMP #### [facility] [address] [address] [address] Joselyn Coffey CBCon 11-13-2022 Erythrocyte distribution width (RBC) [Ratio] 18.5 % High 11.5-15.0 [facility] Comment on above: Performed By: #### L [id number] ####[facility] (BEAKER)[address] [facility] [place] [address] ERYTHROCYTE MEAN CORPUSCULAR HEMOGLOBIN CONCENTRATION (G/DL) BY AUTOMATED 34.6 g/dL Normal 32.0-35.0 [facility] Comment on above: Performed By: #### L [id number] ####[facility] (BEAKER)[address] [facility] [address] Hematocrit (Bld) [Volume fraction] 26.6 % Low 39.0-55.0 [facility] Comment on above: Performed By: #### L [id number] ####[facility] (BEAKER)[address] [facility] [address] Hemoglobin (Bld) [Mass/Vol] 9.2 g/dL Low 13.0-17.0 [facility] Comment on above: Performed By: #### L [id number] ####[facility] (BEAKER)[address] [address] IMMATURE PLATELET FRACTION % 6.2 % Normal 0.8-6.3 [facility] Comment on above: Performed By: #### L [id number] ####[facility] ([facility])[address] [address] MCH (RBC) [Entitic mass] 32.9 pg Normal 27.0-33.0 [facility] Comment on above: Performed By: #### L [id number] ####[facility] ([facility])[address] [place] [address] MCV (RBC) [Entitic vol] 95.0 fL Normal 82.0-98.0 [facility] Comment on above: Performed By: #### L [id number] ####[facility] ([facility])[address] [place] [address] PLATELETS (10*3/UL) IN BLOOD AUTOMATED COUNT 105 10*3/uL Low 150-400 [facility] Comment on above: Performed By: #### L [id number] ####[facility] ([facility])[address] [place] [address] RBC (Bld) [#/Vol] 2.80 10*6/uL Low 4.20-5.70 [facility] Comment on above: Performed By: #### L [id number] ####[facility] ([facility])[address] [place] [address] WBC (Bld) [#/Vol] 7.47 10*3/uL Normal 4.00-10.60 [facility] Comment on above: Performed By: #### L [id number] ####[facility] ([facility])[address] [place] [address] CBC AUTO DIFFon 11-13-2022 BASO # 0.0 103/ul Normal 0.0-0.1 [facility] Comment on above: Performed By: #### C ESTHLEA #### [facility] [address] [place] [address] Dr. Joselyn Coffey Basophils/100 WBC (Bld) 0.3 % Normal 0.2-2.0 [facility] Comment on above: Performed By: #### C ESTHELA #### [facility] [address] [address] [address] Joselyn Coffey EO # 0.0 103/ul Normal 0.0-0.7 [facility] Comment on above: Performed By: #### C ESTHELA #### [facility] [address] [address] [address] Joselyn Coffey Eosinophils/100 WBC (Bld) 0.3 % Critically low 0.9-7.0 [facility] Comment on above: Performed By: #### C BCDEV #### [facility] [address] [place] [address] Dr. Joselyn Coffey Erythrocyte distribution width (RBC) [Ratio] 18.7 % Critically high 11.0-15.0 [facility] Comment on above: Performed By: #### C BCMAN #### [facility] [address] [place] [address] Dr. Joselyn Coffey Hematocrit (Bld) [Volume fraction] 25.4 % Critically low 42.0-54.0 [facility] Comment on above: Performed By: #### C BCDEV #### [facility] [address] [place] [address] Dr. Joselyn Coffey Hemoglobin (Bld) [Mass/Vol] 8.2 g/dL Critically low 14.0-18.0 [facility] Comment on above: Performed By: #### C ESTHELA #### [facility] [address] [place] [address] Dr. Joselyn Coffey IG # 0.04 10e3/ul Critically high 0.00-0.03 [facility] Comment on above: Performed By: #### C ESTHELA #### [facility] [address] [place] [address] Dr. Joselyn Coffey IG % 0.7 % Critically high 0.0-0.5 [facility] Comment on above: Performed By: #### C BCDEV #### [facility] [address] [place] [address] Dr. Joselyn Coffey LYMPH # 0.4 103/ul Critically low 1.2-3.8 [facility] Comment on above: Performed By: #### C BCMAN #### [facility] [address] [place] [address] Dr. Joselyn Coffey Lymphocytes/100 WBC (Bld) 7.2 % Critically low 20.5-60.0 [facility] Comment on above: Performed By: #### C ESTHELA #### [facility] [address] [place] [address] Dr. Joselyn Coffey MANUAL DIFF REQ NO Normal [facility] Comment on above: Performed By: #### C ESTHELA #### [facility] [address] [address] [address] Joselyn Coffey MCH (RBC) [Entitic mass] 32.8 pg Normal 25.9-34.0 [facility] Comment on above: Performed By: #### C ESTHELA #### [facility] [address] [place] [address] Dr. Joselyn Coffey MCHC (RBC) [Mass/Vol] 32.3 g/dL Normal 29.9-35.2 [facility] Comment on above: Performed By: #### C ESTHELA #### [facility] [address] [place] [address] Dr. Joselyn Coffey MCV (RBC) [Entitic vol] 101.6 fL Critically high 80.0-94.0 [facility] Comment on above: Performed By: #### C ESTHELA #### [facility] [address] [place] [address] Dr. Joselyn Coffey MONO # 0.7 103/ul Normal 0.3-0.8 [facility] Comment on above: Performed By: #### C ESTHELA #### [facility] [address] [place] [address] Dr. Joselyn Coffey Monocytes/100 WBC (Bld) 11.9 % Normal 1.7-12.0 [facility] Comment on above: Performed By: #### C ESTHELA #### [facility] [address] [place] [address] Dr. Joselyn Coffey NEUT # 4.7 103/ul Normal 1.4-6.5 [facility] Comment on above: Performed By: #### C ESTHELA #### [facility] [address] [place] [address] Dr. Joselyn Coffey Neutrophils/100 WBC (Bld) 79.6 % Critically high 43.0-75.0 [facility] Comment on above: Performed By: #### C ESTHELA #### [facility] [address] [place] [address] Dr. Joselyn Coffey Platelet mean volume (Bld) [Entitic vol] 10.8 fL Normal 9.5-13.5 [facility] Comment on above: Performed By: #### C ESTHELA #### [facility] [address] [place] [address] Dr. Joselyn Coffey PLT 108 103/ul Critically low 150-450 [facility] Comment on above: Performed By: #### C ESTHELA #### [facility] [address] [address] [address] Joselyn Coffey RBC 2.50 106/ul Critically low 4.70-6.10 [facility] Comment on above: Performed By: #### C ESTHELA #### [facility] [address] [address] [address] Joselyn Coffey WBC 6.0 103/ul Normal 4.0-11.0 [facility] Comment on above: Performed By: #### Sammy PROCTOR #### [facility] [address] [place] [address] Dr. Joselyn Coffey CBC WITH AUTO DIFFERENTIALon 11-13-2022 Basophils (Bld) [#/Vol] 0.02 10*3/uL Normal 0.00-0.20 [facility] Comment on above: Performed By: #### L [id number] ####[facility] ([facility])[address] [place] [address] Basophils/100 WBC (Bld) 0.3 % Normal 0.0-1.0 [facility] Comment on above: Performed By: #### L [id number] ####[facility] ([facility])[address] [place] [address] Eosinophils (Bld) [#/Vol] 0.03 10*3/uL Normal 0.00-0.50 [facility] Comment on above: Performed By: #### L [id number] ####[facility] ([facility])[address] [place] [address] Eosinophils/100 WBC (Bld) 0.4 % Normal 0.0-6.0 [facility] Comment on above: Performed By: #### L [id number] ####[facility] ([facility])[address] [place] [address] Erythrocyte distribution width (RBC) [Ratio] 19.0 % High 11.5-15.0 [facility] Comment on above: Performed By: #### L [id number] ####[facility] ([facility])[address] [place] [address] ERYTHROCYTE MEAN CORPUSCULAR HEMOGLOBIN CONCENTRATION (G/DL) BY AUTOMATED 34.4 g/dL Normal 32.0-35.0 [facility] Comment on above: Performed By: #### L [id number] ####[facility] ([facility])[address] [place] [address] Hematocrit (Bld) [Volume fraction] 27.0 % Low 39.0-55.0 [facility] Comment on above: Performed By: #### L [id number] ####[facility] ([facility])[address] [place] [address] Hemoglobin (Bld) [Mass/Vol] 9.3 g/dL Low 13.0-17.0 [facility] Comment on above: Performed By: #### L [id number] ####[facility] ([facility])[address] [place] [address] Immature granulocytes (Bld) [#/Vol] 0.05 10*3/uL Normal 0.00-0.20 [facility] Comment on above: Performed By: #### L [id number] ####[facility] ([facility])[address] [place] [address] Immature granulocytes/100 WBC (Bld) 0.7 % Normal 0.0-1.0 [facility] Comment on above: Performed By: #### L [id number] ####[facility] ([facility])[address] [place] [address] IMMATURE PLATELET FRACTION % 7.2 % High 0.8-6.3 [facility] Comment on above: Performed By: #### L [id number] ####[facility] [place] [address] Lymphocytes (Bld) [#/Vol] 0.63 10*3/uL Low 1.20-4.00 [facility] Comment on above: Performed By: #### L [id number] ####[facility] ([facility]AKER)[address] [place] [address] Lymphocytes/100 WBC (Bld) 8.4 % Low 20.0-45.0 [facility] Comment on above: Performed By: #### L [id number] ####[facility] [place] [address] MCH (RBC) [Entitic mass] 33.2 pg High 27.0-33.0 [facility] Comment on above: Performed By: #### L [id number] ####[facility] ([facility]ER)[address] [place] [address] MCV (RBC) [Entitic vol] 96.4 fL Normal 82.0-98.0 [facility] Comment on above: Performed By: #### L [id number] ####[facility] ([facility]ER)[address] [place] [address] Monocytes (Bld) [#/Vol] 0.76 10*3/uL Normal 0.10-1.00 [facility] Comment on above: Performed By: #### L [id number] ####[facility] ([facility])[address] [place] [address] Monocytes/100 WBC (Bld) 10.1 % Normal 5.0-12.0 [facility] Comment on above: Performed By: #### L [id number] ####[facility] ([facility]ER)[address] [place] [address] Neutrophils (Bld) [#/Vol] 6.04 10*3/uL Normal 1.60-7.60 [facility] Comment on above: Performed By: #### L [id number] ####[facility] ([facility]ER)[address] [place] [address] Neutrophils/100 WBC (Bld) 80.1 % High 40.0-72.0 [facility] Comment on above: Performed By: #### L [id number] ####[facility] ([facility])[address] [place] [address] NRBC (PER 100 WBCS) BY AUTOMATED COUNT 0.0 % Normal 0.0-0.0 [facility] Comment on above: Performed By: #### L [id number] ####[facility] ([facility])[address] [place] [address] PLATELETS (10*3/UL) IN BLOOD AUTOMATED COUNT 146 10*3/uL Low 150-400 [facility] Comment on above: Performed By: #### L [id number] ####[facility] ([facility])[address] [place] [address] RBC (Bld) [#/Vol] 2.80 10*6/uL Low 4.20-5.70 [facility] Comment on above: Performed By: #### L [id number] ####[facility] ([facility])[address] [place] [address] WBC (Bld) [#/Vol] 7.53 10*3/uL Normal 4.00-10.60 [facility] Comment on above: Performed By: #### L [id number] ####[facility] ([facility])[address] [place] [address] CKon 11-13-2022 CREATINE KINASE (U/L) IN SER/PLAS 104.0 U/L Normal 30.0-223.0 [facility] Comment on above: Performed By: #### L [id number] ####[facility] ([facility])[address] [place] [address] CT AORTA AND BILATERAL ILIOF EMORAL RUNOFF ANGIOGRAM W AND/OR WO IV CONTRASTon 11-13-2022 CT AORTA AND BILATERAL ILIOFEMORAL RUNOFF ANGIOGRAM W AND/OR WO IV CONTRAST Normal [facility] CT CHEST ANGIOGRAM W AND/OR WO IV CONTRASTon 11-13-2022 CT CHEST ANGIOGRAM W AND/OR WO IV CONTRAST Normal [facility] Covid-19 PCR (CVDTBH)on SARS-CoV-2 (COVID-19) RNA HAIM+probe Ql (Unsp spec) Not detected Normal NOT DETECTED [facility] Comment on above: Result Comment: When diagnostic [...] for this test is supported by the [employer] and Human Service's declaration that [...] Performed By: #### P TT, PT #### [facility] [address] [place] [address] Dr. Joselyn Coffey DIGOXIN LEVELon 11-13-2022 DIGOXIN (NG/ML) IN SER/PLAS 0.7 ng/mL Normal 0.7-2 [facility] Comment on above: Performed By: #### L [id number] ####[facility] ([facility]AKER)[address] [place] [address] EDNURSon 11-13-2022 EDNURS Normal [facility] EDPROVon 11-13-2022 EDPROV Normal [facility] ER URINE PROFILEon 3 Bilirubin Ql (U) Negative Normal NEGATIVE [facility] Comment on above: Performed By: #### P TT, PT #### [facility] [address] [place] [address] Dr. Joselyn Coffey Clarity (U) CLEAR Normal CLEAR [facility] Comment on above: Performed By: #### P TT, PT #### [facility] [address] [place] [address] [address] [address] Joselyn Coffey Color (U) ORANGE Abnormal YELLOW [facility] Comment on above: Performed By: #### P TT, PT #### [facility] [address] [place] [address] Dr. Joselyn RIVERA A micrscopic examina tion will be performed if indicated. Normal [facility] Comment on above: Performed By: #### P TT, PT #### [facility] [address] [place] [address] Dr. Joselyn Coffey Glucose Ql (U) 100 mg/dl Abnormal NEGATIVE [facility] Comment on above: Performed By: #### P TT, PT #### [facility] [address] [place] [address] Dr. Joselyn Coffey Hemoglobin Ql (U) Negative Normal NEGATIVE [facility] Comment on above: Performed By: #### P TT, PT #### [facility] [address] [place] [address] Dr. Joselyn Coffey Ketones Ql (U) Negative Normal NEGATIVE [facility] Comment on above: Performed By: #### P TT, PT #### [facility] [address] [place] [address] Dr. Joselyn Coffey LEUKOCYTES Negative Normal NEGATIVE [facility] Comment on above: Performed By: #### P TT, PT #### [facility] [address] [place] [address] Dr. Joselyn Coffey Nitrite Ql (U) Negative Normal NEGATIVE [facility] Comment on above: Performed By: #### P TT, PT #### [facility] [address] [place] [address] Dr. Joselyn Coffey pH (U) 6.0 [pH] Normal 5-9 [facility] Comment on above: Performed By: #### P TT, PT #### [facility] [address] [place] [address] Dr. Joselyn Coffey SPEC GRAVITY 1.015 Normal 1.005-<=1.0 25 [facility] Comment on above: Performed By: #### P TT, PT #### [facility] [address] [place] [address] Dr. Joselyn Coffey UA PROTEIN TRACE Normal NEGATIVE/ TRACE [facility] Comment on above: Performed By: #### P TT, PT #### [facility] [address] [address] [address] Joselyn Coffey UR MICRO IND NOT INDICATED Normal [facility] Comment on above: Performed By: #### P TT, PT #### [facility] [address] [address] [address] Joselyn Coffey Urobilinogen Qn (U) 8 {Mercedes'U}/dL Abnormal 0.2 - 1.0 [facility] Comment on above: Performed By: #### P TT, PT #### [facility] [address] [place] [address] Dr. Joselyn Coffey HPon 11-13-2022 HP Normal [facility] LACTIC ACID, PLASMAon 2022 LACTATE (MMOL/L) IN SER/PLAS 1.3 mmol/L Normal 0.5-2.2 [facility] Comment on above: Performed By: #### L [id number] ####[facility] ([facility]AKER)[address] [place] [address] MAGNESIUMon 11-13-2022 Magnesium [Mass/Vol] 1.7 mg/dL Low 1.9-2.7 [facility] Comment on above: Performed By: #### L [id number] ####[facility] ([facility]AKER)[address] [place] [address] NURSNOTEon 11-13-2022 NURSNOTE ACT RESULTS 1622- 320 1710- 157 Normal [facility] OPNOTEon 11-13-2022 OPNOTE Normal [facility] PHOSPHORUSon 11-13-2022 Magnesium [Mass/Vol] 2.8 mg/dL Normal 2.5-5.0 [facility] Comment on above: Performed By: #### L [id number] ####[facility] ([facility])[address] [place] [address] POCT ACTIVATED CLOTTING TIME UNSOLICITED RESULTSon 11-13-2022 POC ACTIVATED CLOTTING TIME 157 sec High 82-152 [facility] Comment on above: Performed By: #### L [id number] ####[facility] ([facility])[address] [place] [address] POC ACTIVATED CLOTTING TIME 320 sec High 82-152 [facility] Comment on above: Performed By: #### L [id number] ####[facility] ([facility])[address] [place] [address] POCT GLUCOSE METER UNSOLICIT ED RESULTSon 11-13-2022 Glucose [Mass/Vol] 174 mg/dL High 70-105 [facility] Comment on above: Result Comment: [email or web address] Performed By: #### L [id number] ####[facility] ([facility])[address] [place] [address] Glucose [Mass/Vol] 188 mg/dL High 70-105 [facility] Comment on above: Result Comment: [email or web address] Performed By: #### L [id number] ####[facility] ([facility])[address] [place] [address] Glucose [Mass/Vol] 188 mg/dL High 70-105 [facility] Comment on above: Result Comment: [email or web address] Performed By: #### L [id number] ####[facility] ([facility])[address] [place] [address] POCT PERFUSION PANEL UNSOLIC ITED RESULTSon 11-13-2022 CO2 [Moles/Vol] 26.0 mmol/L Normal 21.0-29.0 [facility] Comment on above: Performed By: #### L [id number] ####[facility] ([facility])[address] [place] [address] Glucose [Mass/Vol] 148 mg/dL High 70-105 [facility] Comment on above: Performed By: #### L [id number] ####[facility] ([facility])[address] [place] [address] HCO3 (Bld) [Moles/Vol] 25.3 mmol/L Normal 23.0-28.[address] [facility] Comment on above: Performed By: #### L [id number] ####[facility] (BEAKER)[address] [place] [address] Hematocrit (Bld) [Volume fraction] 21 % Low 38-51 [facility] Comment on above: Performed By: #### L [id number] ####[facility] [address] Hemoglobin (Bld) [Mass/Vol] 7.1 g/dL Low 12.0-17.0 [facility] Comment on above: Performed By: #### L [id number] ####[facility] [address] POCT BASE EXCESS 1.0 mmol/L Normal -2.0-3.0 [facility] Comment on above: Performed By: #### L [id number] ####[facility] ([facility])[address] [address] POCT IONIZED CALCIUM 1.17 mmol/L Normal 1.12-1.32 [facility] Comment on above: Performed By: #### L [id number] ####[facility] [address] POCT PCO2 38.4 mmHg Low 41.0-51.0 [facility] Comment on above: Performed By: #### L [id number] ####[facility] [address] POCT PH 7.43 High 7.31-7.41 [facility] Comment on above: Performed By: #### L [id number] ####[facility] ([facility])[address] [address] POCT PO2 207 mmHg High 80-105 [facility] Comment on above: Performed By: #### L [id number] ####[facility] ([facility])[address] [address] POCT SO2 100 % High 95-98 [facility] Comment on above: Performed By: #### L [id number] ####[facility] ([facility])[address] [place] [address] Potassium [Moles/Vol] 4.0 mmol/L Normal 3.5-4.9 [facility] Comment on above: Performed By: #### L [id number] ####[facility] ([facility])[address] [place] [address] Sodium [Moles/Vol] 134 mmol/L Low 138.0-146.0 [facility] Comment on above: Performed By: #### L [id number] ####[facility] ([facility])[address] [place] [address] POTASSIUM, WHOLE BLOODon Potassium [Moles/Vol] 3.7 mmol/L Normal 3.5-5.1 [facility] Comment on above: Performed By: #### P OTASSIUM, WHOLE BLOOD ####[facility] [id number] [place] [address] [place] PROF 14(COMP METB)on 023 Albumin [Mass/Vol] 2.6 g/dL Critically low 3.4-5.0 [facility] Comment on above: Performed By: #### C ROSALINA, CMP #### [facility] [address] [address] [address] Joselyn Coffey Albumin/Globulin [Mass ratio] 0.7 {ratio} Normal [facility] Comment on above: Performed By: #### C ROSALINA, CMP #### [facility] [address] [address] [address] Joselyn Coffey ALP [Catalytic activity/Vol] 115 U/L Normal 46-116 [facility] Comment on above: Performed By: #### C ROSALINA, CMP #### [facility] [address] [address] [address] Joselyn Coffey ALT [Catalytic activity/Vol] 44 U/L Normal 16-63 [facility] Comment on above: Performed By: #### C ROSALINA, CMP #### [facility] [address] [address] [address] Joselyn Coffey Anion gap [Moles/Vol] 9.6 mmol/L Normal [facility] Comment on above: Performed By: #### C MADM, CMP #### [facility] [address] [address] [address] Joselyn Coffey AST [Catalytic activity/Vol] 52 U/L Critically high 15-37 [facility] Comment on above: Performed By: #### C MADM, CMP #### [facility] [address] [address] [address] Joselyn Coffey Bilirubin [Mass/Vol] 2.6 mg/dL Critically high 0.2-1.0 [facility] Comment on above: Performed By: #### C MADM, CMP #### [facility] [address] [place] [address] Dr. Joselyn Coffey Calcium [Mass/Vol] 8.3 mg/dL Critically low 8.5-10.1 [facility] Comment on above: Performed By: #### C MADM, CMP #### [facility] [address] [address] [address] Joselyn Coffey Chloride [Moles/Vol] 99 mmol/L Normal 98-107 [facility] Comment on above: Performed By: #### C MADM, CMP #### [facility] [address] [address] [address] Joselyn Coffey CO2 [Moles/Vol] 26.6 mmol/L Normal 21.0-32.0 [facility] Comment on above: Performed By: #### C MADM, CMP #### [facility] [address] [address] [address] Joselyn Coffey Creatinine [Mass/Vol] 0.77 mg/dL Normal 0.70-1.30 [facility] Comment on above: Performed By: #### C MADM, CMP #### [facility] [address] [address] [address] Joselyn Coffey EGFR-AF GUAMANIAN >60 Normal >=60 [facility] Comment on above: Performed By: #### C MADM, CMP #### [facility] [address] [address] [address] Joselyn Coffey EGFR-NON AF GUAMANIAN >60 Normal >=60 [facility] [facility] Comment on above: Performed By: #### C MADM, CMP #### [facility] [address] [address] [address] Joselyn Coffey Globulin (S) [Mass/Vol] 3.5 g/dL Normal [facility] Comment on above: Performed By: #### C MADM, CMP #### [facility] [address] [address] [address] Joselyn Coffey Glucose [Mass/Vol] 123 mg/dL Critically high 74-106 [facility] Comment on above: Performed By: #### C MADM, CMP #### [facility] [address] [address] [address] Joselyn Coffey Potassium [Moles/Vol] 4.2 mmol/L Normal 3.5-5.1 [facility] Comment on above: Performed By: #### C MADM, CMP #### [facility] [address] [address] [address] Joselyn Coffey Protein [Mass/Vol] 6.1 g/dL Critically low 6.4-8.2 [facility] Comment on above: Performed By: #### C MADM, CMP #### [facility] [address] [address] [address] Joselyn Coffey Sodium [Moles/Vol] 131 mmol/L Critically low 136-145 [facility] Comment on above: Performed By: #### C MADM, CMP #### [facility] [address] [address] [address] Joselyn Coffey Urea nitrogen [Mass/Vol] 11.0 mg/dL Normal 7.0-18.0 [facility] Comment on above: Performed By: #### C MADM, CMP #### [facility] [address] [address] [address] Joselyn Coffey Urea nitrogen/Creatinine [Mass ratio] 14.3 mg/mg Normal [facility] Comment on above: Performed By: #### C ROSALINA, CMP #### [facility] [address] [address] [address] Joselyn Coffey PROTIME-INRon 11-13-2022 INR IN PPP BY COAGULATION ASSAY 1.73 High 0.90-1.10 [facility] Comment on above: Result Comment: ACCC P [...] CHEST 1995;[id number]. Performed By: #### L [id number] ####[facility] ([facility])[address] [place] [address] PROTHROMBIN TIME (PT) IN PPP BY COAGULATION ASSAY 20.0 Seconds High 12.3-14.8 [facility] Comment on above: Performed By: #### L [id number] ####[facility] ([facility])[address] [place] [address] SODIUM, WHOLE BLOODon 2022 SODIUM, WHOLE BLOOD 129 Low 136-145 [facility] Comment on above: Performed By: #### S ODIUM, WHOLE BLOOD ####[facility] [id number] [place] [address] [place] TYPE AND SCREENon 11-13-2022 AB SCREEN Negative Normal [facility] Comment on above: Performed By: #### L [id number] ####[facility], ABO group Nom (Bld) O Normal [facility] Comment on above: Performed By: #### L [id number] ####[facility], RH TYPE IN BLOOD Positive Normal [facility] Comment on above: Performed By: #### L [id number] ####[facility], TYPE AND SCREEN Negative Normal [facility] Comment on above: Performed By: #### C ESTHELA #### [facility] [address] [address] [address] Joselyn Coffey 30on 11-09-2022 30 Normal [facility] BASIC METABOLIC PANELon 10-12 Anion gap [Moles/Vol] 8 mmol/L Normal 7-20 [facility] Comment on above: Performed By: #### L [id number] ####[facility] ([facility])[address] [place] [address] Calcium [Mass/Vol] 7.4 mg/dL Low 8.6-10.3 [facility] Comment on above: Performed By: #### L [id number] ####[facility] ([facility])[address] [place] [address] Chloride [Moles/Vol] 101 mmol/L Normal 98-107 [facility] Comment on above: Performed By: #### L [id number] ####[facility] ([facility])[address] [place] [address] CO2 [Moles/Vol] 23 mmol/L Normal 21-31 [facility] Comment on above: Performed By: #### L [id number] ####[facility] ([facility])[address] [place] [address] Creatinine [Mass/Vol] 0.57 mg/dL Low 0.70-1.30 [facility] Comment on above: Performed By: #### L [id number] ####[facility] ([facility])[address] [place] [address] GLOMERULAR FILTRATION RATE ML/MIN/1.73 SQ M.PREDICTED 100.4 mL/min/1.73m*2 Normal >60.0 [facility] Comment on above: Result Comment: The [facility]???s estimated glomerular filtration rate (eGFR) will no [...] of individuals. Performed By: #### L [id number] ####[facility] ([facility])[address] [place] [address] Glucose [Mass/Vol] 118 mg/dL High 70-100 [facility] Comment on above: Performed By: #### L [id number] ####[facility] ([facility])[address] [place] [address] Potassium [Moles/Vol] 3.8 mmol/L Normal 3.5-5.1 [facility] Comment on above: Performed By: #### L [id number] ####[facility] ([facility])[address] [place] [address] Sodium [Moles/Vol] 132 mmol/L Low 136-145 [facility] Comment on above: Performed By: #### L [id number] ####[facility] [place] [address] Urea nitrogen [Mass/Vol] 12 mg/dL Normal 7-25 [facility] Comment on above: Performed By: #### L [id number] ####[facility] ([facility])[address] [place] [address] UREA NITROGEN/CREATININE (MASS RATIO) IN SER/PLAS 21.05 Normal [facility] Comment on above: Performed By: #### L [id number] ####[facility] [place] [address] CBCon 11-09-2022 Erythrocyte distribution width (RBC) [Ratio] 15.1 % High 11.5-15.0 [facility] Comment on above: Performed By: #### L [id number] ####[facility] ([facility])[address] [place] [address] ERYTHROCYTE MEAN CORPUSCULAR HEMOGLOBIN CONCENTRATION (G/DL) BY AUTOMATED 34.4 g/dL Normal 32.0-35.0 [facility] Comment on above: Performed By: #### L [id number] ####[facility] ([facility])[address] [place] [address] Hematocrit (Bld) [Volume fraction] 22.1 % Low 39.0-55.0 [facility] Comment on above: Performed By: #### L [id number] ####[facility] ([facility])[address] [place] [address] Hemoglobin (Bld) [Mass/Vol] 7.6 g/dL Low 13.0-17.0 [facility] Comment on above: Performed By: #### L [id number] ####[facility] ([facility])[address] [place] [address] IMMATURE PLATELET FRACTION % 5.5 % Normal 0.8-6.3 [facility] Comment on above: Performed By: #### L [id number] ####[facility] ([facility])[address] [place] [address] MCH (RBC) [Entitic mass] 31.9 pg Normal 27.0-33.0 [facility] Comment on above: Performed By: #### L [id number] ####[facility] ([facility])[address] [place] [address] MCV (RBC) [Entitic vol] 92.9 fL Normal 82.0-98.0 [facility] Comment on above: Performed By: #### L [id number] ####[facility] ([facility])[address] [place] [address] PLATELETS (10*3/UL) IN BLOOD AUTOMATED COUNT 67 10*3/uL Low 150-400 [facility] Comment on above: Performed By: #### L [id number] ####[facility] ([facility])[address] [place] [address] RBC (Bld) [#/Vol] 2.38 10*6/uL Low 4.20-5.70 [facility] Comment on above: Performed By: #### L [id number] ####[facility] ([facility])[address] [place] [address] WBC (Bld) [#/Vol] 3.36 10*3/uL Low 4.00-10.60 [facility] Comment on above: Performed By: #### L [id number] ####[facility] ([facility])[address] [place] [address] DSon 11-09-2022 DS Normal [facility] MAGNESIUMon 11-09-2022 Magnesium [Mass/Vol] 1.8 mg/dL Low 1.9-2.7 [facility] Comment on above: Performed By: #### L [id number] ####[facility] ([facility])[address] [place] [address] PHOSPHORUSon 11-09-2022 Magnesium [Mass/Vol] 1.9 mg/dL Low 2.5-5.0 [facility] Comment on above: Performed By: #### L [id number] ####[facility] ([facility])[address] [place] [address] POCT GLUCOSE METER UNSOLICIT ED RESULTSon 11-09-2022 Glucose [Mass/Vol] 137 mg/dL High 70-105 [facility] Comment on above: Result Comment: [email or web address] Performed By: #### L [id number] ####[facility] [place] [address] Glucose [Mass/Vol] 134 mg/dL High 70-105 [facility] Comment on above: Result Comment: [email or web address] Performed By: #### L [id number] ####[facility] ([facility])[address] [place] [address] Glucose [Mass/Vol] 134 mg/dL High 70-105 [facility] Comment on above: Result Comment: [email or web address] [email or web address] Performed By: #### L [id number] ####[facility] ([facility])[address] [place] [address] Glucose [Mass/Vol] 122 mg/dL High 70-105 [facility] Comment on above: Result Comment: [email or web address] [email or web address] Performed By: #### L [id number] ####[facility] ([facility])[address] [place] [address] 30on 11-08-2022 30 Normal [facility] 30 The patient is Moder ately Stable - Low risk of patient condition declining or worsening The patient's goals for the shift include comfort The clinical goals for the shift include VSS Normal [facility] APTTon 11-08-2022 ACTIVATED PARTIAL THROMBOPLASTIN TIME IN PPP BY COAGULATION ASSAY 58.7 Seconds High 25.0-35.0 [facility] Comment on above: Performed By: #### L [id number] ####[facility] ([facility])[address] [place] [address] BASIC METABOLIC PANELon 10-12 Anion gap [Moles/Vol] 6 mmol/L Low 7-20 [facility] Comment on above: Performed By: #### L [id number] ####[facility] ([facility])[address] [place] [address] Calcium [Mass/Vol] 7.4 mg/dL Low 8.6-10.3 [facility] Comment on above: Performed By: #### L [id number] ####[facility] [place] [address] Chloride [Moles/Vol] 102 mmol/L Normal 98-107 [facility] Comment on above: Performed By: #### L [id number] ####[facility] [place] [address] CO2 [Moles/Vol] 25 mmol/L Normal 21-31 [facility] Comment on above: Performed By: #### L [id number] ####[facility] ([facility])[address] [place] [address] Creatinine [Mass/Vol] 0.70 mg/dL Normal 0.70-1.30 [facility] Comment on above: Performed By: #### L [id number] ####[facility] ([facility])[address] [place] [address] GLOMERULAR FILTRATION RATE ML/MIN/1.73 SQ M.PREDICTED 92.3 mL/min/1.73m*2 Normal >60.0 [facility] Comment on above: Result Comment: [facility]???s estimated glomerular filtration rate (eGFR) will no [...] of individuals. Performed By: #### L [id number] ####[facility] [place] [address] Glucose [Mass/Vol] 132 mg/dL High 70-100 [facility] Comment on above: Performed By: #### L [id number] ####[facility] ([facility])[address] [place] [address] Potassium [Moles/Vol] 3.7 mmol/L Normal 3.5-5.1 [facility] Comment on above: Performed By: #### L [id number] ####[facility] [place] [address] Sodium [Moles/Vol] 133 mmol/L Low 136-145 [facility] Comment on above: Performed By: #### L [id number] ####[facility] [place] [address] Urea nitrogen [Mass/Vol] 10 mg/dL Normal 7-25 [facility] Comment on above: Performed By: #### L [id number] ####[facility] ([facility])[address] [place] [address] UREA NITROGEN/CREATININE (MASS RATIO) IN SER/PLAS 14.29 Normal [facility] Comment on above: Performed By: #### L [id number] ####[facility] ([facility])[address] [place] [address] CBCon 11-08-2022 Erythrocyte distribution width (RBC) [Ratio] 14.3 % Normal 11.5-15.0 [facility] Comment on above: Performed By: #### L [id number] ####[facility] ([facility])[address] [place] [address] ERYTHROCYTE MEAN CORPUSCULAR HEMOGLOBIN CONCENTRATION (G/DL) BY AUTOMATED 36.0 g/dL High 32.0-35.0 [facility] Comment on above: Performed By: #### L [id number] ####[facility] ([facility])[address] [place] [address] Hematocrit (Bld) [Volume fraction] 21.4 % Low 39.0-55.0 [facility] Comment on above: Performed By: #### L [id number] ####[facility] [place] [address] Hemoglobin (Bld) [Mass/Vol] 7.7 g/dL Low 13.0-17.0 [facility] Comment on above: Performed By: #### L [id number] ####[facility] [place] [address] IMMATURE PLATELET FRACTION % 6.1 % Normal 0.8-6.3 [facility] Comment on above: Performed By: #### L [id number] ####[facility] [place] [address] MCH (RBC) [Entitic mass] 32.5 pg Normal 27.0-33.0 [facility] Comment on above: Performed By: #### L [id number] ####[facility] [place] [address] MCV (RBC) [Entitic vol] 90.3 fL Normal 82.0-98.0 [facility] Comment on above: Performed By: #### L [id number] ####[facility] ([facility])[address] [place], [place] [address] PLATELETS (10*3/UL) IN BLOOD AUTOMATED COUNT 54 10*3/uL Low 150-400 [facility] Comment on above: Result Comment: P=46 , 1D Performed By: #### L [id number] ####[facility] ([facility])[address] [place] [address] RBC (Bld) [#/Vol] 2.37 10*6/uL Low 4.20-5.70 [facility] Comment on above: Performed By: #### L [id number] ####[facility] ([facility])[address] [place], [place] [address] WBC (Bld) [#/Vol] 2.40 10*3/uL Low 4.00-10.60 [facility] Comment on above: Performed By: #### L [id number] ####[facility] ([facility])[address] [place], [place] [address] CBC WITH AUTO DIFFERENTIALon 11-08-2022 Erythrocyte distribution width (RBC) [Ratio] 14.6 % Normal 11.5-15.0 [facility] Comment on above: Performed By: #### L [id number] ####[facility] [place] [address] ERYTHROCYTE MEAN CORPUSCULAR HEMOGLOBIN CONCENTRATION (G/DL) BY AUTOMATED 34.5 g/dL Normal 32.0-35.0 [facility] Comment on above: Performed By: #### L [id number] ####[facility] [place] [address] Hemoglobin (Bld) [Mass/Vol] 8.1 g/dL Low 13.0-17.0 [facility] Comment on above: Performed By: #### L [id number] ####[facility] ([facility])[address] [place] [address] IMMATURE PLATELET FRACTION % 5.7 % Normal 0.8-6.3 [facility] Comment on above: Performed By: #### L [id number] ####[facility] ([facility])[address] [place] [address] MCH (RBC) [Entitic mass] 31.6 pg Normal 27.0-33.0 [facility] Comment on above: Performed By: #### L [id number] ####[facility] ([facility])[address] [place] [address] MCV (RBC) [Entitic vol] 91.8 fL Normal 82.0-98.0 [facility] Comment on above: Performed By: #### L [id number] ####[facility] ([facility])[address] [place] [address] NRBC (PER 100 WBCS) BY AUTOMATED COUNT 0.0 % Normal 0.0-0.0 [facility] Comment on above: Performed By: #### L [id number] ####[facility] ([facility])[address] [place] [address] PLATELETS (10*3/UL) IN BLOOD AUTOMATED COUNT 67 10*3/uL Low 150-400 [facility] Comment on above: Performed By: #### L [id number] ####[facility] ([facility])[address] [place] [address] RBC (Bld) [#/Vol] 2.56 10*6/uL Low 4.20-5.70 [facility] Comment on above: Performed By: #### L [id number] ####[facility] ([facility])[address] [place] [address] WBC (Bld) [#/Vol] 3.23 10*3/uL Low 4.00-10.60 [facility] Comment on above: Performed By: #### L [id number] ####[facility] ([facility])[address] [place] [address] CONSULTon 11-08-2022 CONSULT Normal [facility] D-DIMER, QUANTITATIVEon 10-12 FIBRIN D-DIMER (UG/L FEU) IN PLATELET POOR PLASMA 0.69 mcg/mL FEU High 0.27-0.49 [facility] Comment on above: Order Comment: D-Dim er values of less than 0.50 ug/ml (FEU) are considered to be a negative predictor of thrombosis. However, the D-Dimer result should be used in conjunction with pretest probability and should not be used alone to diagnose a thrombotic event. Performed By: #### L [id number] ####[facility] ([facility])[address] [place] [address] FERRITINon 11-08-2022 FERRITIN (NG/ML) IN SER/PLAS 197.0 ng/mL Normal 24.0-336.0 [facility] Comment on above: Performed By: #### L [id number] ####[facility] ([facility])[address] [place] [address] FIBRIN SPLIT PRODUCTSon 10-12 FDP <5ug/mL Normal [facility] Comment on above: Performed By: #### L [id number] ####[facility] ([facility])[address] [place] [address] FIBRINOGENon 11-08-2022 Magnesium [Mass/Vol] 483 mg/dL High 150-425 [facility] Comment on above: Performed By: #### L [id number] ####[facility] ([facility])[address] [place] [address] FOLATE RBCon 11-08-2022 Hematocrit (Bld) [Volume fraction] 23.5 % Low 39.0-55.0 [facility] Comment on above: Performed By: #### L [id number] ####[facility] ([facility])[address] [place] [address] Performed By: #### L [id number] ####[facility] ([facility])[address] [place] [address] RBC FOLATE 1504 ng/mL Normal >=366 [facility] Comment on above: Result Comment: Perf ormed By: [id number] [place], [place] [address]Monbbcrpme Director: Dashawn Dumont MD, PhD Performed By: #### L [id number] ####[facility] ([facility])[address] [place] [address] HAPTOGLOBINon 11-08-2022 Magnesium [Mass/Vol] 49.8 mg/dL Normal 26-164 [facility] Comment on above: Performed By: #### L [id number] ####[facility] [place] [address] IRON AND TIBCon 11-08-2022 IRON (UG/DL) IN SER/PLAS 42 ug/dL Low 50-212 [facility] Comment on above: Performed By: #### L [id number] ####[facility] ([facility])[address] [place] [address] IRON BINDING CAPACITY (UG/DL) IN SER/PLAS 228 ug/dL Low 250-450 [facility] Comment on above: Performed By: #### L [id number] ####[facility] ([facility])[address] [place] [address] IRON BINDING CAPACITY.UNSATURATED (UG/DL) IN SER/PLAS 186.0 ug/dL Normal 155.0-355.0 [facility] Comment on above: Performed By: #### L [id number] ####[facility] ([facility])[address] [place] [address] IRON SATURATION (%) IN SER/PLAS 18 % Low 20-50 [facility] Comment on above: Performed By: #### L [id number] ####[facility] ([facility])[address] [place] [address] LACTATE DEHYDROGENASEon 10-12 LACTATE DEHYDROGENASE (U/L) IN SER/PLAS BY LAC->PYR RXN 164 U/L Normal 140-271 [facility] Comment on above: Performed By: #### L [id number] ####[facility] ([facility])[address] [place] [address] MAGNESIUMon 11-08-2022 Magnesium [Mass/Vol] 1.9 mg/dL Normal 1.9-2.7 [facility] Comment on above: Performed By: #### L [id number] ####[facility] ([facility])[address] [place] [address] MANUAL DIFFERENTIALon 2022 BASOPHILS (10*3/UL) IN BLOOD BY CALCULATION 0.01 10*3/uL Normal [facility] Comment on above: Performed By: #### L [id number] ####[facility] ([facility])[address] [place] [address] BASOPHILS/100 LEUKOCYTES IN BLOOD BY AUTOMATED COUNT 0.3 % Normal 0.0-1.0 [facility] Comment on above: Performed By: #### L [id number] ####[facility] ([facility])[address] [place] [address] EOSINOPHILS (10*3/UL) IN BLOOD BY CALCULATION 0.02 10*3/uL Normal [facility] Comment on above: Performed By: #### L [id number] ####[facility] ([facility])[address] [place] [address] EOSINOPHILS/100 LEUKOCYTES IN BLOOD BY AUTOMATED COUNT 0.6 % Normal 0.0-6.0 [facility] Comment on above: Performed By: #### L [id number] ####[facility] ([facility])[address] [facility] [place] [address] IMMATURE GRANULOCYTES (10*3/UL) IN BLOOD BY CALCULATION 0.02 Normal [facility] Comment on above: Performed By: #### L [id number] ####[facility] ([facility])[address] [place] [address] IMMATURE GRANULOCYTES/100 LEUKOCYTES IN BLOOD BY AUTOMATED COUNT 0.6 % Normal 0.0-1.0 [facility] Comment on above: Performed By: #### L [id number] ####[facility] ([facility])[address] [place] [address] LYMPHOCYTES (10*3/UL) IN BLOOD BY CALCULATION 0.45 10*3/uL Low 1.20-4.00 [facility] Comment on above: Performed By: #### L [id number] ####[facility] ([facility])[address] [place] [address] LYMPHOCYTES/100 LEUKOCYTES IN BLOOD BY AUTOMATED COUNT 13.9 % Low 20.0-45.0 [facility] Comment on above: Performed By: #### L [id number] ####[facility] ([facility])[address] [place] [address] MONOCYTES (10*3/UL) IN BLOOD BY CALCUATION 0.54 10*3/uL Normal [facility] Comment on above: Performed By: #### L [id number] ####[facility] ([facility])[address] [place] [address] MONOCYTES/100 LEUKOCYTES IN BLOOD BY AUTOMATED COUNT 16.7 % High 5.0-12.0 [facility] Comment on above: Performed By: #### L [id number] ####[facility] ([facility])[address] [place] [address] NEUTROPHILS (10*3/UL) IN BLOOD BY CALCULATION 2.2 10*3/uL Normal 1.6-7.6 [facility] Comment on above: Performed By: #### L [id number] ####[facility] ([facility])[address] [place] [address] NEUTROPHILS/100 LEUKOCYTES IN BLOOD BY AUTOMATED COUNT 67.9 % Normal 40.0-72.0 [facility] Comment on above: Performed By: #### L [id number] ####[facility] ([facility])[address] [place] [address] PHOSPHORUSon 11-08-2022 Magnesium [Mass/Vol] 2.4 mg/dL Low 2.5-5.0 [facility] Comment on above: Performed By: #### L [id number] ####[facility] ([facility])[address] [place] [address] POCT GLUCOSE METER UNSOLICIT ED RESULTSon 11-08-2022 Glucose [Mass/Vol] 168 mg/dL High 70-105 [facility] Comment on above: Result Comment: [email or web address] [email or web address] Performed By: #### L [id number] ####[facility] ([facility])[address] [place] [address] Glucose [Mass/Vol] 155 mg/dL High 70-105 [facility] Comment on above: Result Comment: [email or web address] [email or web address] Performed By: #### L [id number] ####[facility] ([facility])[address] [place] [address] Glucose [Mass/Vol] 134 mg/dL High 70-105 [facility] Comment on above: Result Comment: ksha ugh Performed By: #### L [id number] ####[facility] ([facility])[address] [place] [address] Glucose [Mass/Vol] 160 mg/dL High 70-105 [facility] Comment on above: Result Comment: dhic ks3 Performed By: #### L [id number] ####[facility] ([facility])[address] [place] [address] Glucose [Mass/Vol] 142 mg/dL High 70-105 [facility] Comment on above: Result Comment: dhic ks3 Performed By: #### L [id number] ####[facility] ([facility])[address] [place] [address] PROTIME-INRon 11-08-2022 INR IN PPP BY COAGULATION ASSAY 1.16 High 0.90-1.10 [facility] Comment on above: Result Comment: ACCC P [...] CHEST 1995;[id number]. Performed By: #### L [id number] ####[facility] ([facility])[address] [place] [address] PROTHROMBIN TIME (PT) IN PPP BY COAGULATION ASSAY 14.8 Seconds Normal 12.3-14.8 [facility] Comment on above: Performed By: #### L [id number] ####[facility] ([facility])[address] [place] [address] RETICULOCYTE PANELon 01-30-2 023 HEMOGLOBIN (PG) IN RETICULOCYTES 37.3 pg High 28.0-36.0 [facility] Comment on above: Performed By: #### L [id number] ####[facility] ([facility])[address] [place] [address] IMMATURE RETICULOCYTE FRACTION (%) 34.8 % High 2-16 [facility] Comment on above: Performed By: #### L [id number] ####[facility] ([facility])[address] [place] [address] RETICULOCYTES (10*6/UL) IN BLOOD 0.1073 10*6/uL High 0.0250-0.10 00 [facility] Comment on above: Performed By: #### L [id number] ####[facility] ([facility])[address] [place] [address] Reticulocytes/100 RBC (Bld) 4.19 % High 0.50-1.80 [facility] Comment on above: Performed By: #### L [id number] ####[facility] ([facility])[address] [place] [address] SEROTONIN RELEASE ASSAY, UNF RACTIONATED HEPARINon 11-08-2022 WARREN, UNFRACTIONATED HEPARIN Negative Normal Negative [facility] Comment on above: Performed By: #### L [id number] ####[facility] ([facility])[address] [place] [address] WARREN, UNFRACTIONATED HEPARIN, HIGH DOSE 0 % Normal [facility] Comment on above: Performed By: #### L [id number] ####[facility] ([facility])[address] [place] [address] WARREN, UNFRACTIONATED HEPARIN, INTERP. See Note Normal [facility] Comment on above: Result Comment: This patient's [...] Additionalinformation regarding diagnosis of HIT is available [email or web address].INTERPRETIVE INFORMATION: WARREN, Unfractionated HeparinThis test was developed and its performance characteristicsdetermined by [facility]. It has not been cleared orapproved by the [place] Food and Drug Administration. This test wasperformed in a CLIA certified laboratory and is intended forclinical purposes.Performed By: [id number] [id number] Director: Dashawn Dumont MD, PhD Performed By: #### L [id number] ####[facility] ([facility])[address] [place] [address] WARREN, UNFRACTIONATED HEPARIN, LOW DOSE 0 % Normal [facility] Comment on above: Performed By: #### L [id number] ####[facility] [place] [address] TSHon 11-08-2022 THYROTROPIN (MIU/L) IN SER/PLAS BY DETECTION LIMIT <= 0.05 MIU/L 0.60 mIU/L Normal 0.34-5.60 [facility] Comment on above: Performed By: #### L [id number] ####[facility] ([facility])[address] [place] [address] VITAMIN B12on 11-08-2022 Cobalamin (Vitamin B12) [Mass/Vol] 799 pg/mL Normal 180-914 [facility] Comment on above: Result Comment: REFE RENCE RANGES:180-914 pg/mL Lxsoop907-093 pg/mL Indeterminate<145 pg/mL Deficient Performed By: #### L [id number] ####[facility] ([facility])[address] [place] [address] 30on 11-07-2022 30 Normal [facility] 30 Normal [facility] BASIC METABOLIC PANELon 10-11 Anion gap [Moles/Vol] 6 mmol/L Low 7-20 [facility] Comment on above: Performed By: #### L [id number] ####[facility] [place] [address] Calcium [Mass/Vol] 7.4 mg/dL Low 8.6-10.3 [facility] Comment on above: Performed By: #### L [id number] ####[facility] ([facility])[address] [place] [address] Chloride [Moles/Vol] 101 mmol/L Normal 98-107 [facility] Comment on above: Performed By: #### L [id number] ####[facility] ([facility])[address] [place] [address] CO2 [Moles/Vol] 26 mmol/L Normal 21-31 [facility] Comment on above: Performed By: #### L [id number] ####[facility] ([facility])[address] [place] [address] Creatinine [Mass/Vol] 0.64 mg/dL Low 0.70-1.30 [facility] Comment on above: Performed By: #### L [id number] ####[facility] ([facility])[address] [place] [address] GLOMERULAR FILTRATION RATE ML/MIN/1.73 SQ M.PREDICTED 95.8 mL/min/1.73m*2 Normal >60.0 [facility] Comment on above: Result Comment: The [facility]???s estimated glomerular filtration rate (eGFR) will no [...] of individuals. Performed By: #### L [id number] ####[facility] ([facility])[address] [place] [address] Glucose [Mass/Vol] 124 mg/dL High 70-100 [facility] Comment on above: Performed By: #### L [id number] ####[facility] ([facility])[address] [place] [address] Potassium [Moles/Vol] 3.5 mmol/L Normal 3.5-5.1 [facility] Comment on above: Performed By: #### L [id number] ####[facility] ([facility])[address] [place] [address] Sodium [Moles/Vol] 133 mmol/L Low 136-145 [facility] Comment on above: Performed By: #### L [id number] ####[facility] ([facility])[address] [place] [address] Urea nitrogen [Mass/Vol] 11 mg/dL Normal 7-25 [facility] Comment on above: Performed By: #### L [id number] ####[facility] [place] [address] UREA NITROGEN/CREATININE (MASS RATIO) IN SER/PLAS 17.19 Normal [facility] Comment on above: Performed By: #### L [id number] ####[facility] ([facility])[address] [place] [address] CBCon 11-07-2022 Erythrocyte distribution width (RBC) [Ratio] 14.3 % Normal 11.5-15.0 [facility] Comment on above: Performed By: #### L [id number] ####[facility] ([facility])[address] [place] [address] ERYTHROCYTE MEAN CORPUSCULAR HEMOGLOBIN CONCENTRATION (G/DL) BY AUTOMATED 36.0 g/dL High 32.0-35.0 [facility] Comment on above: Performed By: #### L [id number] ####[facility] ([facility])[address] [place] [address] Hematocrit (Bld) [Volume fraction] 21.4 % Low 39.0-55.0 [facility] Comment on above: Performed By: #### L [id number] ####[facility] ([facility])[address] [place] [address] Hemoglobin (Bld) [Mass/Vol] 7.7 g/dL Low 13.0-17.0 [facility] Comment on above: Performed By: #### L [id number] ####[facility] [place] [address] IMMATURE PLATELET FRACTION % 5.8 % Normal 0.8-6.3 [facility] Comment on above: Performed By: #### L [id number] ####[facility] [place] [address] MCH (RBC) [Entitic mass] 32.1 pg Normal 27.0-33.0 [facility] Comment on above: Performed By: #### L [id number] ####[facility] ([facility])[address] [place] [address] MCV (RBC) [Entitic vol] 89.2 fL Normal 82.0-98.0 [facility] Comment on above: Performed By: #### L [id number] ####[facility] ([facility])[address] [address] PLATELETS (10*3/UL) IN BLOOD AUTOMATED COUNT 46 10*3/uL Low 150-400 [facility] Comment on above: Performed By: #### L [id number] ####[facility] ([facility])[address] [address] RBC (Bld) [#/Vol] 2.40 10*6/uL Low 4.20-5.70 [facility] Comment on above: Performed By: #### L [id number] ####[facility] ([facility])[address] [address] WBC (Bld) [#/Vol] 2.95 10*3/uL Low 4.00-10.60 [facility] Comment on above: Performed By: #### L [id number] ####[facility] ([facility])[address] [address] HEMOGLOBIN AND HEMATOCRIT, B LOODon 11-07-2022 Hematocrit (Bld) [Volume fraction] 20.1 % Low 39.0-55.0 [facility] Comment on above: Performed By: #### L [id number] ####[facility] [address] Hemoglobin (Bld) [Mass/Vol] 7.3 g/dL Low 13.0-17.0 [facility] Comment on above: Performed By: #### L [id number] ####[facility] [address] PHOSPHORUSon 11-07-2022 Magnesium [Mass/Vol] 1.8 mg/dL Low 1.9-2.7 [facility] Comment on above: Performed By: #### L [id number] ####[facility] ([facility])[address] [place] [address] Performed By: #### L [id number] ####[facility] ([facility])[address] [place] [address] POCT GLUCOSE METER UNSOLICIT ED RESULTSon 11-07-2022 Glucose [Mass/Vol] 126 mg/dL High 70-105 [facility] Comment on above: Result Comment: jacky [email or web address] Performed By: #### L [id number] ####[facility] ([facility])[address] [place] [address] Glucose [Mass/Vol] 158 mg/dL High 70-105 [facility] Comment on above: Result Comment: jacky [email or web address] Performed By: #### L [id number] ####[facility] ([facility])[address] [place] [address] Glucose [Mass/Vol] 130 mg/dL High 70-105 [facility] Comment on above: Result Comment: [email or web address] Performed By: #### L [id number] ####[facility] ([facility])[address] [place] [address] 30on 11-06-2022 30 The patient is Moder ately Stable - Low risk of patient condition declining or worsening The patient's goals for the shift include move more/ less swelling The clinical goals for the shift include noo bleeding from operative sites Normal [facility] BASIC METABOLIC PANELon 10-11 Anion gap [Moles/Vol] 3 mmol/L Low 7-20 [facility] Comment on above: Performed By: #### L [id number] ####[facility] ([facility])[address] [place] [address] Calcium [Mass/Vol] 7.6 mg/dL Low 8.6-10.3 [facility] Comment on above: Performed By: #### L [id number] ####[facility] [place] [address] Chloride [Moles/Vol] 102 mmol/L Normal 98-107 [facility] Comment on above: Performed By: #### L [id number] ####[facility] [place] [address] CO2 [Moles/Vol] 28 mmol/L Normal 21-31 [facility] Comment on above: Performed By: #### L [id number] ####[facility] ([facility])[address] [place] [address] Creatinine [Mass/Vol] 0.62 mg/dL Low 0.70-1.30 [facility] Comment on above: Performed By: #### L [id number] ####[facility] ([facility])[address] [place] [address] GLOMERULAR FILTRATION RATE ML/MIN/1.73 SQ M.PREDICTED 97.0 mL/min/1.73m*2 Normal >60.0 [facility] Comment on above: Result Comment: The [facility]???s estimated glomerular filtration rate (eGFR) will no [...] of individuals. Performed By: #### L [id number] ####[facility] [place] [address] Glucose [Mass/Vol] 138 mg/dL High 70-100 [facility] Comment on above: Performed By: #### L [id number] ####[facility] [place] [address] Potassium [Moles/Vol] 3.9 mmol/L Normal 3.5-5.1 [facility] Comment on above: Performed By: #### L [id number] ####[facility] ([facility])[address] [place] [address] Sodium [Moles/Vol] 133 mmol/L Low 136-145 [facility] Comment on above: Performed By: #### L [id number] ####[facility] [place] [address] Urea nitrogen [Mass/Vol] 11 mg/dL Normal 7-25 [facility] Comment on above: Performed By: #### L [id number] ####[facility] ([facility])[address] [place] [address] UREA NITROGEN/CREATININE (MASS RATIO) IN SER/PLAS 17.74 Normal [facility] Comment on above: Performed By: #### L [id number] ####[facility] ([facility])[address] [place] [address] CBCon 11-06-2022 Erythrocyte distribution width (RBC) [Ratio] 14.5 % Normal 11.5-15.0 [facility] Comment on above: Performed By: #### L [id number] ####[facility] ([facility])[address] [address] ERYTHROCYTE MEAN CORPUSCULAR HEMOGLOBIN CONCENTRATION (G/DL) BY AUTOMATED 34.9 g/dL Normal 32.0-35.0 [facility] Comment on above: Performed By: #### L [id number] ####[facility] ([facility])[address] [place] [address] Hematocrit (Bld) [Volume fraction] 25.2 % Low 39.0-55.0 [facility] Comment on above: Performed By: #### L [id number] ####[facility] ([facility])[address] [place] [address] Hemoglobin (Bld) [Mass/Vol] 8.8 g/dL Low 13.0-17.0 [facility] Comment on above: Performed By: #### L [id number] ####[facility] [address] IMMATURE PLATELET FRACTION % 3.9 % Normal 0.8-6.3 [facility] Comment on above: Performed By: #### L [id number] ####[facility] ([facility])[address] [address] MCH (RBC) [Entitic mass] 31.7 pg Normal 27.0-33.0 [facility] Comment on above: Performed By: #### L [id number] ####[facility] ([facility])[address] [address] MCV (RBC) [Entitic vol] 90.6 fL Normal 82.0-98.0 [facility] Comment on above: Performed By: #### L [id number] ####[facility] ([facility])[address] [place] [address] PLATELETS (10*3/UL) IN BLOOD AUTOMATED COUNT 53 10*3/uL Low 150-400 [facility] Comment on above: Result Comment: 52 3 d Performed By: #### L [id number] ####[facility] ([facility])[address] [address] RBC (Bld) [#/Vol] 2.78 10*6/uL Low 4.20-5.70 [facility] Comment on above: Performed By: #### L [id number] ####[facility] ([facility])[address] [address] WBC (Bld) [#/Vol] 4.17 10*3/uL Normal 4.00-10.60 [facility] Comment on above: Performed By: #### L [id number] ####[facility] ([facility])[address] [address] CONSULTon 11-06-2022 CONSULT Normal [facility] HEMOGLOBIN AND HEMATOCRIT, B LOODon 11-06-2022 Hematocrit (Bld) [Volume fraction] 24.2 % Low 39.0-55.0 [facility] Comment on above: Performed By: #### L [id number] ####[facility] ([facility])[address] [place] [address] Hemoglobin (Bld) [Mass/Vol] 8.4 g/dL Low 13.0-17.0 [facility] Comment on above: Performed By: #### L [id number] ####[facility] ([facility])[address] [place] [address] Hematocrit (Bld) [Volume fraction] 23.0 % Low 39.0-55.0 [facility] Comment on above: Performed By: #### L [id number] ####[facility] ([facility])[address] [place] [address] Hemoglobin (Bld) [Mass/Vol] 8.3 g/dL Low 13.0-17.0 [facility] Comment on above: Performed By: #### L [id number] ####[facility] ([facility])[address] [place] [address] Hematocrit (Bld) [Volume fraction] 23.6 % Low 39.0-55.0 [facility] Comment on above: Performed By: #### L [id number] ####[facility] ([facility])[address] [place] [address] Hemoglobin (Bld) [Mass/Vol] 8.4 g/dL Low 13.0-17.0 [facility] Comment on above: Performed By: #### L [id number] ####[facility] ([facility])[address] [place] [address] MAGNESIUMon 11-06-2022 Magnesium [Mass/Vol] 2.0 mg/dL Normal 1.9-2.7 [facility] Comment on above: Performed By: #### L [id number] ####[facility] ([facility])[address] [place] [address] PHOSPHORUSon 11-06-2022 Magnesium [Mass/Vol] 1.6 mg/dL Low 2.5-5.0 [facility] Comment on above: Performed By: #### L [id number] ####[facility] ([facility])[address] [place] [address] POCT GLUCOSE METER UNSOLICIT ED RESULTSon 11-06-2022 Glucose [Mass/Vol] 177 mg/dL High 70-105 [facility] Comment on above: Result Comment: vodo m2 Performed By: #### L [id number] ####[facility] ([facility])[address] [place] [address] Glucose [Mass/Vol] 185 mg/dL High 70-105 [facility] Comment on above: Result Comment: vodo m2 Performed By: #### L [id number] ####[facility] ([facility])[address] [place] [address] Glucose [Mass/Vol] 110 mg/dL High 70-105 [facility] Comment on above: Result Comment: jlip ins3 Performed By: #### L [id number] ####[facility] ([facility])[address] [facility] [address] 30on 11-05-2022 30 Normal [facility] 30 Normal [facility] 30 Normal [facility] ARTERIAL BLOOD GAS WITH IONI ZED CALCIUMon 11-05-2022 Base excess Calc (Bld) [Moles/Vol] -0.7000 mmol/L Normal -2.0-3.0 [facility] Comment on above: Performed By: #### L [id number] ####[facility] [id number] [place] [address] [facility] CALCIUM IONIZED (MMOL/L) IN BLOOD 1.19 mmol/L Normal 1.15-1.33 [facility] Comment on above: Performed By: #### L [id number] ####[facility] [id number] [place] [address] [facility] CO2 (Bld) [Partial pressure] 36 mm[Hg] Normal 35-48 [facility] Comment on above: Performed By: #### L [id number] ####[facility] [id number] [facility] [place] [address] [facility] HCO3 (Bld) [Moles/Vol] 23.4 mmol/L Normal 21.0-28.[address] [facility] Comment on above: Performed By: #### L [id number] ####[facility] [id number] [facility] [place] [address] [facility] Oxygen (Bld) [Partial pressure] 90 mm[Hg] Normal 83-100 [facility] Comment on above: Performed By: #### L [id number] ####[facility] [id number] [facility] [place] [address] [facility] OXYGEN SATURATION (%) IN ARTERIAL BLOOD 99.3 % High 94.0-98.0 [facility] Comment on above: Performed By: #### L [id number] ####[facility] [id number] [facility] [place] [address] [facility] pH (Bld) 7.42 [pH] Normal 7.35-7.45 [facility] Comment on above: Performed By: #### L [id number] ####[facility] [id number] [place] [address] [facility] SOURCE OF OXYGEN Room Air Normal [facility] Comment on above: Performed By: #### L [id number] ####[facility] [id number] [facility] [place] [address] [facility] BASIC METABOLIC PANELon -2 Anion gap [Moles/Vol] 3 mmol/L Low 7-20 [facility] Comment on above: Performed By: #### L [id number] ####[facility] ([facility])[address] [facility] [place] [address] Calcium [Mass/Vol] 7.4 mg/dL Low 8.6-10.3 [facility] Comment on above: Performed By: #### L [id number] ####[facility] ([facility])[address] [facility] [place] [address] Chloride [Moles/Vol] 104 mmol/L Normal 98-107 [facility] Comment on above: Performed By: #### L [id number] ####[facility] [place] [address] CO2 [Moles/Vol] 24 mmol/L Normal 21-31 [facility] Comment on above: Performed By: #### L [id number] ####[facility] ([facility])[address] [place] [address] Creatinine [Mass/Vol] 0.72 mg/dL Normal 0.70-1.30 [facility] Comment on above: Performed By: #### L [id number] ####[facility] ([facility])[address] [place] [address] GLOMERULAR FILTRATION RATE ML/MIN/1.73 SQ M.PREDICTED 91.3 mL/min/1.73m*2 Normal >60.0 [facility] Comment on above: Result Comment: [facility]???s estimated glomerular filtration rate (eGFR) will no [...] of individuals. Performed By: #### L [id number] ####[facility] [place] [address] Glucose [Mass/Vol] 144 mg/dL High 70-100 [facility] Comment on above: Performed By: #### L [id number] ####[facility] ([facility])[address] [place] [address] Potassium [Moles/Vol] 3.8 mmol/L Normal 3.5-5.1 [facility] Comment on above: Performed By: #### L [id number] ####[facility] [place] [address] Sodium [Moles/Vol] 131 mmol/L Low 136-145 [facility] Comment on above: Performed By: #### L [id number] ####[facility] ([facility] [place] [address] Urea nitrogen [Mass/Vol] 17 mg/dL Normal 7-25 [facility] Comment on above: Performed By: #### L [id number] ####[facility] ([facility])[address] [place] [address] UREA NITROGEN/CREATININE (MASS RATIO) IN SER/PLAS 23.61 Normal [facility] Comment on above: Performed By: #### L [id number] ####[facility] ([facility])[address] [place] [address] CBCon 11-05-2022 Erythrocyte distribution width (RBC) [Ratio] 14.6 % Normal 11.5-15.0 [facility] Comment on above: Performed By: #### L [id number] ####[facility] ([facility])[address] [place] [address] ERYTHROCYTE MEAN CORPUSCULAR HEMOGLOBIN CONCENTRATION (G/DL) BY AUTOMATED 35.9 g/dL High 32.0-35.0 [facility] Comment on above: Performed By: #### L [id number] ####[facility] ([facility])[address] [place] [address] Hematocrit (Bld) [Volume fraction] 25.1 % Low 39.0-55.0 [facility] Comment on above: Performed By: #### L [id number] ####[facility] [place] [address] Hemoglobin (Bld) [Mass/Vol] 9.0 g/dL Low 13.0-17.0 [facility] Comment on above: Performed By: #### L [id number] ####[facility] ([facility] [place] [address] IMMATURE PLATELET FRACTION % 4.0 % Normal 0.8-6.3 [facility] Comment on above: Performed By: #### L [id number] ####[facility] ([facility] [address] MCH (RBC) [Entitic mass] 31.9 pg Normal 27.0-33.0 [facility] Comment on above: Performed By: #### L [id number] ####[facility] ([facility] [address] MCV (RBC) [Entitic vol] 89.0 fL Normal 82.0-98.0 [facility] Comment on above: Performed By: #### L [id number] ####[facility] ([facility])[address] [address] PLATELETS (10*3/UL) IN BLOOD AUTOMATED COUNT 54 10*3/uL Low 150-400 [facility] Comment on above: Performed By: #### L [id number] ####[facility] ([facility])[address] [address] RBC (Bld) [#/Vol] 2.82 10*6/uL Low 4.20-5.70 [facility] Comment on above: Performed By: #### L [id number] ####[facility] ([facility])[address] [address] WBC (Bld) [#/Vol] 5.31 10*3/uL Normal 4.00-10.60 [facility] Comment on above: Performed By: #### L [id number] ####[facility] ([facility])[address], [place] [address] Erythrocyte distribution width (RBC) [Ratio] 13.8 % Normal 11.5-15.0 [facility] Comment on above: Performed By: #### L [id number] ####[facility] ([facility], [place] [address] ERYTHROCYTE MEAN CORPUSCULAR HEMOGLOBIN CONCENTRATION (G/DL) BY AUTOMATED 36.4 g/dL High 32.0-35.0 [facility] Comment on above: Performed By: #### L [id number] ####[facility] ([facility])[address] [place] [address] Hematocrit (Bld) [Volume fraction] 18.7 % Low 39.0-55.0 [facility] Comment on above: Performed By: #### L [id number] ####[facility] ([facility])[address] [place] [address] Hemoglobin (Bld) [Mass/Vol] 6.8 g/dL Low 13.0-17.0 [facility] Comment on above: Performed By: #### L [id number] ####[facility] ([facility])[address] [place] [address] IMMATURE PLATELET FRACTION % 3.8 % Normal 0.8-6.3 [facility] Comment on above: Performed By: #### L [id number] ####[facility] ([facility] [place] [address] MCH (RBC) [Entitic mass] 33.0 pg Normal 27.0-33.0 [facility] Comment on above: Performed By: #### L [id number] ####[facility] ([facility])[address] [place] [address] MCV (RBC) [Entitic vol] 90.8 fL Normal 82.0-98.0 [facility] Comment on above: Performed By: #### L [id number] ####[facility] ([facility])[address] [place] [address] PLATELETS (10*3/UL) IN BLOOD AUTOMATED COUNT 53 10*3/uL Low 150-400 [facility] Comment on above: Performed By: #### L [id number] ####[facility] ([facility])[address] [place] [address] RBC (Bld) [#/Vol] 2.06 10*6/uL Low 4.20-5.70 [facility] Comment on above: Performed By: #### L [id number] ####[facility] ([facility])[address] [place] [address] WBC (Bld) [#/Vol] 4.70 10*3/uL Normal 4.00-10.60 [facility] Comment on above: Performed By: #### L [id number] ####[facility] ([facility])[address] [place] [address] CT ABDOMEN PELVIS WO IV CONT RASTon 11-05-2022 CT ABDOMEN PELVIS WO IV CONTRAST Normal [facility] HEMOGLOBIN AND HEMATOCRIT, B LOODon 11-05-2022 Hematocrit (Bld) [Volume fraction] 20.0 % Low 39.0-55.0 [facility] Comment on above: Performed By: #### L [id number] ####[facility] ([facility])[address] [place] [address] Hemoglobin (Bld) [Mass/Vol] 7.2 g/dL Low 13.0-17.0 [facility] Comment on above: Performed By: #### L [id number] ####[facility] ([facility])[address] [place] [address] HEPARIN LEVELon 11-05-2022 HEPARIN UNFRACTIONATED (U/ML) IN PPP BY CHROMOGENIC METHOD <0.10 Invalid Interpretation Code 0.3-0.7 [facility] Comment on above: Result Comment: Davidson roxaban and Apixaban will interfere with the anti Xa assay used to monitor UFH and LMWH. Performed By: #### L [id number] ####[facility] ([facility])[address] [place] [address] MAGNESIUMon 11-05-2022 Magnesium [Mass/Vol] 1.5 mg/dL Low 1.9-2.7 [facility] Comment on above: Performed By: #### L [id number] ####[facility] ([facility])[address] [facility] [place] [address] PHOSPHORUSon 11-05-2022 Magnesium [Mass/Vol] 1.6 mg/dL Low 2.5-5.0 [facility] Comment on above: Performed By: #### L [id number] ####[facility] ([facility])[address] [place] [address] POCT GLUCOSE METER UNSOLICIT ED RESULTSon 11-05-2022 Glucose [Mass/Vol] 145 mg/dL High 70-105 [facility] Comment on above: Result Comment: efratonie esparza Performed By: #### L [id number] ####[facility] ([facility])[address] [facility] [address] Glucose [Mass/Vol] 142 mg/dL High 70-105 [facility] Comment on above: Result Comment: reanna vilma Performed By: #### L [id number] ####[facility] ([facility])[address] [facility] [address] Glucose [Mass/Vol] 60 mg/dL Low 70-105 [facility] Comment on above: Result Comment: [email or web address] Performed By: #### L [id number] ####[facility] ([facility])[address] [facility] [place] [address] Glucose [Mass/Vol] 107 mg/dL High 70-105 [facility] Comment on above: Result Comment: [email or web address] Performed By: #### L [id number] ####[facility] ([facility])[address] [place] [address] APTTon 11-04-2022 ACTIVATED PARTIAL THROMBOPLASTIN TIME IN PPP BY COAGULATION ASSAY 32.2 Seconds Normal 25.0-35.0 [facility] Comment on above: Performed By: #### L [id number] ####[facility] ([facility])[address] [place] [address] ARTERIAL BLOOD GAS WITH IONI ZED CALCIUMon 11-04-2022 Base excess Calc (Bld) [Moles/Vol] -4.4000 mmol/L Low -2.0-3.0 [facility] Comment on above: Performed By: #### L [id number] ####[facility] [id number] [place] [address] [place] CALCIUM IONIZED (MMOL/L) IN BLOOD 1.17 mmol/L Normal 1.15-1.33 [facility] Comment on above: Performed By: #### L [id number] ####[facility] [id number] [place] [address] [facility] CO2 (Bld) [Partial pressure] 35 mm[Hg] Normal 35-48 [facility] Comment on above: Performed By: #### L [id number] ####[facility] [id number] [place] [address] [facility] HCO3 (Bld) [Moles/Vol] 20.2 mmol/L Low 21.0-28.[address] [facility] Comment on above: Performed By: #### L [id number] ####[facility] [id number] [place] [address] [facility] Oxygen (Bld) [Partial pressure] 93 mm[Hg] Normal 83-100 [facility] Comment on above: Performed By: #### L [id number] ####[facility] [id number] [place] [address] [facility] OXYGEN SATURATION (%) IN ARTERIAL BLOOD 98.8 % High 94.0-98.0 [facility] Comment on above: Performed By: #### L [id number] ####[facility] [id number] [place] [address] [facility] pH (Bld) 7.37 [pH] Normal 7.35-7.45 [facility] Comment on above: Performed By: #### L [id number] ####[facility] [id number] [place] [address] [facility] SOURCE OF OXYGEN Room Air Normal [facility] Comment on above: Performed By: #### L [id number] ####[facility] [id number] [place] [address] [facility] BASIC METABOLIC PANELon 10-11 Anion gap [Moles/Vol] 5 mmol/L Low 7-20 [facility] Comment on above: Performed By: #### L [id number] ####[facility] ([facility])[address] [place] [address] Calcium [Mass/Vol] 7.4 mg/dL Low 8.6-10.3 [facility] Comment on above: Performed By: #### L [id number] ####[facility] ([facility] [place] [address] Chloride [Moles/Vol] 103 mmol/L Normal 98-107 [facility] Comment on above: Performed By: #### L [id number] ####[facility] ([facility])[address] [place] [address] CO2 [Moles/Vol] 22 mmol/L Normal 21-31 [facility] Comment on above: Performed By: #### L [id number] ####[facility] ([facility])[address] [place] [address] Creatinine [Mass/Vol] 0.98 mg/dL Normal 0.70-1.30 [facility] Comment on above: Performed By: #### L [id number] ####[facility] ([facility])[address] [place] [address] GLOMERULAR FILTRATION RATE ML/MIN/1.73 SQ M.PREDICTED 75.1 mL/min/1.73m*2 Normal >60.0 [facility] Comment on above: Result Comment: The [facility]???s estimated glomerular filtration rate (eGFR) will no [...] of individuals. Performed By: #### L [id number] ####[facility] ([facility] [place] [address] Glucose [Mass/Vol] 145 mg/dL High 70-100 [facility] Comment on above: Performed By: #### L [id number] ####[facility] ([facility])[address] [place] [address] Potassium [Moles/Vol] 4.5 mmol/L Normal 3.5-5.1 [facility] Comment on above: Performed By: #### L [id number] ####[facility] ([facility] [place] [address] Sodium [Moles/Vol] 130 mmol/L Low 136-145 [facility] Comment on above: Performed By: #### L [id number] ####[facility] ([facility] [place] [address] Urea nitrogen [Mass/Vol] 23 mg/dL Normal 7-25 [facility] Comment on above: Performed By: #### L [id number] ####[facility] ([facility])[address] [place] [address] UREA NITROGEN/CREATININE (MASS RATIO) IN SER/PLAS 23.47 Normal [facility] Comment on above: Performed By: #### L [id number] ####[facility] ([facility])[address] [place] [address] Anion gap [Moles/Vol] 8 mmol/L Normal 7-20 [facility] Comment on above: Performed By: #### L [id number] ####[facility] ([facility] [place] [address] Calcium [Mass/Vol] 7.4 mg/dL Low 8.6-10.3 [facility] Comment on above: Performed By: #### L [id number] ####[facility] ([facility])[address] [place] [address] Chloride [Moles/Vol] 107 mmol/L Normal 98-107 [facility] Comment on above: Performed By: #### L [id number] ####[facility] ([facility])[address] [place] [address] CO2 [Moles/Vol] 19 mmol/L Low 21-31 [facility] Comment on above: Performed By: #### L [id number] ####[facility] ([facility])[address] [place] [address] Creatinine [Mass/Vol] 0.73 mg/dL Normal 0.70-1.30 [facility] Comment on above: Performed By: #### L [id number] ####[facility] ([facility])[address] [place] [address] GLOMERULAR FILTRATION RATE ML/MIN/1.73 SQ M.PREDICTED 90.7 mL/min/1.73m*2 Normal >60.0 [facility] Comment on above: Result Comment: The [facility]???s estimated glomerular filtration rate (eGFR) will no [...] of individuals. Performed By: #### L [id number] ####[facility] ([facility])[address] [place] [address] Glucose [Mass/Vol] 220 mg/dL High 70-100 [facility] Comment on above: Performed By: #### L [id number] ####[facility] ([facility])[address] [place] [address] Potassium [Moles/Vol] 4.3 mmol/L Normal 3.5-5.1 [facility] Comment on above: Performed By: #### L [id number] ####[facility] ([facility])[address] [place] [address] Sodium [Moles/Vol] 134 mmol/L Low 136-145 [facility] Comment on above: Performed By: #### L [id number] ####[facility] ([facility] [place] [address] Urea nitrogen [Mass/Vol] 19 mg/dL Normal 7-25 [facility] Comment on above: Performed By: #### L [id number] ####[facility] ([facility] [place] [address] UREA NITROGEN/CREATININE (MASS RATIO) IN SER/PLAS 26.03 Normal [facility] Comment on above: Performed By: #### L [id number] ####[facility] ([facility])[address] [place] [address] CBCon 11-04-2022 Erythrocyte distribution width (RBC) [Ratio] 13.6 % Normal 11.5-15.0 [facility] Comment on above: Performed By: #### L [id number] ####[facility] ([facility])[address] [place] [address] ERYTHROCYTE MEAN CORPUSCULAR HEMOGLOBIN CONCENTRATION (G/DL) BY AUTOMATED 35.2 g/dL High 32.0-35.0 [facility] Comment on above: Performed By: #### L [id number] ####[facility] ([facility])[address] [place] [address] Hematocrit (Bld) [Volume fraction] 27.3 % Low 39.0-55.0 [facility] Comment on above: Performed By: #### L [id number] ####[facility] ([facility])[address] [place] [address] Hemoglobin (Bld) [Mass/Vol] 9.6 g/dL Low 13.0-17.0 [facility] Comment on above: Performed By: #### L [id number] ####[facility] ([facility])[address] [place] [address] IMMATURE PLATELET FRACTION % 3.3 % Normal 0.8-6.3 [facility] Comment on above: Performed By: #### L [id number] ####[facility] ([facility] [place] [address] MCH (RBC) [Entitic mass] 32.3 pg Normal 27.0-33.0 [facility] Comment on above: Performed By: #### L [id number] ####[facility] ([facility] [place] [address] MCV (RBC) [Entitic vol] 91.9 fL Normal 82.0-98.0 [facility] Comment on above: Performed By: #### L [id number] ####[facility] ([facility] [address] PLATELETS (10*3/UL) IN BLOOD AUTOMATED COUNT 110 10*3/uL Low 150-400 [facility] Comment on above: Performed By: #### L [id number] ####[facility] ([facility])[address] [place] [address] RBC (Bld) [#/Vol] 2.97 10*6/uL Low 4.20-5.70 [facility] Comment on above: Performed By: #### L [id number] ####[facility] ([facility])[address] [address] WBC (Bld) [#/Vol] 11.49 10*3/uL High 4.00-10.60 [facility] Comment on above: Performed By: #### L [id number] ####[facility] ([facility])[address] [address] CONSULTon 11-04-2022 CONSULT Normal [facility] CREATININE, URINE, RANDOMon 11-04-2022 Creatinine (U) [Mass/Vol] 131.0 mg/dL Normal 26-299 [facility] Comment on above: Performed By: #### L [id number] ####[facility] ([facility])[address] [place] [address] HEMOGLOBIN AND HEMATOCRIT, B LOODon 11-04-2022 Hematocrit (Bld) [Volume fraction] 19.6 % Low 39.0-55.0 [facility] Comment on above: Performed By: #### L [id number] ####[facility] ([facility])[address] [place] [address] Hemoglobin (Bld) [Mass/Vol] 7.1 g/dL Low 13.0-17.0 [facility] Comment on above: Performed By: #### L [id number] ####[facility] ([facility])[address] [place] [address] Hematocrit (Bld) [Volume fraction] 23.5 % Low 39.0-55.0 [facility] Comment on above: Performed By: #### L [id number] ####[facility] ([facility])[address] [place] [address] Hemoglobin (Bld) [Mass/Vol] 8.4 g/dL Low 13.0-17.0 [facility] Comment on above: Performed By: #### L [id number] ####[facility] ([facility])[address] [place] [address] HEPARIN LEVELon 11-04-2022 HEPARIN UNFRACTIONATED (U/ML) IN PPP BY CHROMOGENIC METHOD <0.10 Invalid Interpretation Code 0.3-0.7 [facility] Comment on above: Result Comment: Masha roxaban and Apixaban will interfere with the anti Xa assay used to monitor UFH and LMWH. Performed By: #### L [id number] ####[facility] ([facility])[address] [place] [address] NURSNOTEon 11-04-2022 NURSNOTE Normal [facility] NURSNOTE Normal [facility] NURSNOTE Normal [facility] OPNOTEon 11-04-2022 OPNOTE Normal [facility] POCT GLUCOSE METER UNSOLICIT ED RESULTSon 11-04-2022 Glucose [Mass/Vol] 159 mg/dL High 70-105 [facility] Comment on above: Result Comment: dnuc kol Performed By: #### L [id number] ####[facility] ([facility])[address] [facility] [facility] [place] [address] Glucose [Mass/Vol] 234 mg/dL High 70-105 [facility] Comment on above: Result Comment: dnuc kol Performed By: #### L [id number] ####[facility] ([facility])[address] [facility] [facility] [place] [address] PROTIME-INRon 11-04-2022 INR IN PPP BY COAGULATION ASSAY 1.38 High 0.90-1.10 [facility] Comment on above: Result Comment: [facility] P RECOMMENDED INR FOR WARFARIN THERAPY CONDITION INRPROPHYLAXIS OF VENOUS THROMBOSIS 2-3(HIGH-RISK SURGERY)TREATMENT OF VENOUS THROMBOSIS 2-3TREATMENT OF PULMONARY EMBOLISM 2-3PREVENTION OF SYSTEMIC EMBOLISM: 2-3 ACUTE MYOCARDIAL INFARCTION TISSUE HEART VALVES VALVULAR HEART DISEASE ATRIAL FIBRILLATION RECURRENT SYSTEMIC EMBOLISMMECHANICAL HEART VALVE 2.5-3.5 FROM: ORAL ANTICOAGULANTS. MECHANISM OF ACTION, CLINICAL EFFECTIVENESS, AND OPTIMAL THERAPEUTIC RANGE. CHEST 1995;108:[id number]. Performed By: #### L [id number] ####[facility] [employer])[address] [place] [address] PROTHROMBIN TIME (PT) IN PPP BY COAGULATION ASSAY 16.9 Seconds High 12.3-14.8 [facility] Comment on above: Performed By: #### L [id number] ####[facility] [employer])[address] [place] [address] SODIUM, URINE, RANDOMon 10-11 Sodium (U) [Moles/Vol] 24 mmol/L Normal [facility] [place] Comment on above: Performed By: #### L [id number] ####[facility] [employer])[address] [place] [address] URINALYSISon 11-04-2022 BILIRUBIN, TOTAL PRESENCE IN URINE Negative Normal Negative [facility] Comment on above: Order Comment: 0000 Performed By: #### L [id number] ####[facility] ([facility])[address] [place] [address] Clarity (U) Clear Normal Clear [facility] Comment on above: Order Comment: 0000 Performed By: #### L [id number] ####[facility] ([facility])[address] [place] [address] Color (U) Yellow Normal Yellow, Dark Yellow, Straw [facility] Comment on above: Order Comment: 0000 Performed By: #### L [id number] ####[facility] ([facility])[address] [place] [address] Glucose (U) [Mass/Vol] Negative Normal Negative [facility] [place] Comment on above: Order Comment: 0000 Performed By: #### L [id number] ####[facility] ([facility])[address] [place] [address] HEMOGLOBIN PRESENCE IN URINE Large Abnormal Negative [facility] Comment on above: Order Comment: 0000 Performed By: #### L [id number] ####[facility] ([facility])[address] [place] [address] Ketones Ql (U) Negative Normal Negative [facility] Comment on above: Order Comment: 0000 Performed By: #### L [id number] ####[facility] ([facility])[address] [place] [address] LEUKOCYTE ESTERASE PRESENCE IN URINE BY TEST STRIP Negative Normal Negative [facility] Comment on above: Order Comment: 0000 Performed By: #### L [id number] ####[facility] [place] [address] NITRITE PRESENCE IN URINE Negative Normal Negative [facility] Comment on above: Order Comment: 0000 Performed By: #### L [id number] ####[facility] ([facility])[address] [place] [address] pH (U) 5.5 [pH] Normal 5.0-8.0 [facility] Comment on above: Order Comment: 0000 Performed By: #### L [id number] ####[facility] ([facility])[address] [place] [address] Protein (U) [Mass/Vol] 30 mg/dL Abnormal Negative [facility] [place] Comment on above: Order Comment: 0000 Performed By: #### L [id number] ####[facility] ([facility])[address] [place] [address] Specific gravity (U) [Rel density] 1.026 High 1.015-1.020 [facility] Comment on above: Order Comment: 0000 Performed By: #### L [id number] ####[facility] ([facility])[address] [place] [address] UROBILINOGEN (EU/DL) IN URINE 0.2 EU/dL Normal Negative [facility] Comment on above: Order Comment: 0000 Performed By: #### L [id number] ####[facility] ([facility])[address] [place] [address] URINALYSIS MICROSCOPICon CASTS IN URINE Present Abnormal None Seen [facility] Comment on above: Performed By: #### L [id number] ####[facility] ([facility])[address] [place] [address] CRYSTALS IN URINE Normal [facility] Comment on above: Performed By: #### L [id number] ####[facility] ([facility])[address] [place] [address] GRANULAR CASTS (#/LPF) IN URINE 1 LPF High <1 [facility] Comment on above: Performed By: #### L [id number] ####[facility] ([facility])[address] [place] [address] HYALINE CASTS /LPF IN URINE SEDIMENT BY MICROSCOPY 10 /LPF High <1 [facility] Comment on above: Performed By: #### L [id number] ####[facility] ([facility])[address] [place] [address] MUCUS (#/HPF) IN URINE SEDIMENT Few Normal None Seen, Occasional, Few [facility] Comment on above: Performed By: #### L [id number] ####[facility] ([facility])[address] [place] [address] RBC (#/HPF) IN URINE SEDIMENT >100 Abnormal None Seen [facility] Comment on above: Performed By: #### L [id number] ####[facility] ([facility])[address] [place] [address] SQUAMOUS EPITHELIAL CELLS (#/HPF) IN URINE SEDIMENT None Seen Normal None Seen, Occasional [facility] Comment on above: Performed By: #### L [id number] ####[facility] ([facility])[address] [facility] [place] [address] WBC (LEUKOCYTE) (#/HPF) IN URINE SEDIMENT 21-50 Abnormal None Seen [facility] Comment on above: Performed By: #### L [id number] ####[facility] ([facility])[address] [place] [address] ANESon 11-03-2022 ANES Normal [facility] ANES Normal [facility] APTTon 11-03-2022 ACTIVATED PARTIAL THROMBOPLASTIN TIME IN PPP BY COAGULATION ASSAY >200.0 Critically high 25.0-35.0 [facility] Comment on above: Performed By: #### L [id number] ####[facility] ([facility])[address] [place] [address] ACTIVATED PARTIAL THROMBOPLASTIN TIME IN PPP BY COAGULATION ASSAY >200.0 Critically high 25.0-35.0 [facility] Comment on above: Performed By: #### L [id number] ####[facility] ([facility])[address] [place] [address] ARTERIAL BLOOD GAS WITH CO-O XIMETRYon 11-03-2022 Base excess Calc (Bld) [Moles/Vol] -2.8000 mmol/L Low -2.0-3.0 [facility] Comment on above: Performed By: #### L [id number] ####[facility] [id number] [place] [address] [place] CARBOXYHEMOGLOBIN/HEMO GLOBIN TOTAL % IN BLOOD 1.8 % Normal 0.0-3.0 [facility] Comment on above: Performed By: #### L [id number] ####[facility] [id number] [place] [address] [place] CO2 (Bld) [Partial pressure] 36 mm[Hg] Normal 35-48 [facility] Comment on above: Performed By: #### L [id number] ####[facility] [id number] [place] [address] [place] DEOXYGENATED HEMOGLOBIN IN BLOOD 0.0 % Low 1-5 [facility] Comment on above: Performed By: #### L [id number] ####[facility] [id number] [place] [address] [place] HCO3 (Bld) [Moles/Vol] 21.8 mmol/L Normal 21.0-28.0 [facility] Comment on above: Performed By: #### L [id number] ####[facility] [id number] [place] [address] [place] Hemoglobin (Bld) [Mass/Vol] 8.9 g/dL Low 11.7-17.4 [facility] Comment on above: Performed By: #### L [id number] ####[facility] [id number] [place] [address] [place] METHEMOGLOBIN/100 IN BLOOD 0.4 % Normal 0.0-1.5 [facility] Comment on above: Performed By: #### L [id number] ####[facility] [id number] [address] [place] [address] [place] Oxygen (Bld) [Partial pressure] 217 mm[Hg] High 83-100 [facility] Comment on above: Performed By: #### L [id number] ####[facility] [id number] [place] [address] [place] OXYGEN SATURATION (%) IN ARTERIAL BLOOD 100.0 % High 94.0-98.0 [facility] Comment on above: Performed By: #### L [id number] ####[facility] [id number] [address] [place] [address] [place] OXYGENATED HEMOGLOBIN IN BLOOD 97.8 % High 90.0-95.0 [facility] Comment on above: Performed By: #### L [id number] ####[facility] [id number] [place] [address] [facility] pH (Bld) 7.39 [pH] Normal 7.35-7.45 [facility] Comment on above: Performed By: #### L [id number] ####[facility] [id number] [place] [address] [facility] SOURCE OF OXYGEN Vent Normal [facility] Comment on above: Performed By: #### L [id number] ####[facility] [id number] [place] [address] [facility] Base excess Calc (Bld) [Moles/Vol] -1.4000 mmol/L Normal -2.0-3.0 [facility] Comment on above: Performed By: #### L [id number] ####[facility] [id number] [place] [address] [facility] CARBOXYHEMOGLOBIN/HEMO GLOBIN TOTAL % IN BLOOD 1.4 % Normal 0.0-3.0 [facility] Comment on above: Performed By: #### L [id number] ####[facility] [id number] [place] [address] [facility] CO2 (Bld) [Partial pressure] 35 mm[Hg] Normal 35-48 [facility] Comment on above: Performed By: #### L [id number] ####[facility] [id number] [place] [address] [facility] HCO3 (Bld) [Moles/Vol] 22.7 mmol/L Normal 21.0-28.0 [facility] Comment on above: Performed By: #### L [id number] ####[facility] [id number] [place] [address] [facility] Hemoglobin (Bld) [Mass/Vol] 9.6 g/dL Low 11.7-17.4 [facility] Comment on above: Performed By: #### L [id number] ####[facility] [id number] [address] METHEMOGLOBIN/100 IN BLOOD 0.9 % Normal 0.0-1.5 [facility] Comment on above: Performed By: #### L [id number] ####[facility] [id number] [address] Oxygen (Bld) [Partial pressure] 220 mm[Hg] High 83-100 [facility] Comment on above: Performed By: #### L [id number] ####[facility] [id number] [place] [address] OXYGENATED HEMOGLOBIN IN BLOOD 97.7 % High 90.0-95.0 [facility] Comment on above: Performed By: #### L [id number] ####[facility] [id number] [place] [address] pH (Bld) 7.42 [pH] Normal 7.35-7.45 [facility] Comment on above: Performed By: #### L [id number] ####[facility] [id number] [place] [address] ARTERIAL BLOOD GAS WITH IONI ZED CALCIUMon 11-03-2022 Base excess Calc (Bld) [Moles/Vol] -4.8000 mmol/L Low -2.0-3.0 [facility] Comment on above: Performed By: #### L [id number] ####[facility] [address] CALCIUM IONIZED (MMOL/L) IN BLOOD 1.13 mmol/L Low 1.15-1.33 [facility] Comment on above: Performed By: #### L [id number] ####[facility] [id number] [address] Performed By: #### C ALCIUM, IONIZED ####[facility] [id number] [address] CO2 (Bld) [Partial pressure] 34 mm[Hg] Low 35-48 [facility] Comment on above: Performed By: #### L [id number] ####[facility] [id number] [place], [place] [id number] [facility] HCO3 (Bld) [Moles/Vol] 19.7 mmol/L Low 21.0-28.[address] [facility] Comment on above: Performed By: #### L [id number] ####[facility] [id number] [place] [address] [facility] LPM 2 Normal [facility] Comment on above: Performed By: #### L [id number] ####[facility] [id number] [place] [address] [facility] Oxygen (Bld) [Partial pressure] 108 mm[Hg] High 83-100 [facility] Comment on above: Performed By: #### L [id number] ####[facility] [id number] [place] [address] [facility] OXYGEN SATURATION (%) IN ARTERIAL BLOOD 99.4 % High 94.0-98.0 [facility] Comment on above: Performed By: #### L [id number] ####[facility] [id number] [place] [address] [facility] pH (Bld) 7.37 [pH] Normal 7.35-7.45 [facility] Comment on above: Performed By: #### L [id number] ####[facility] [id number] [place] [address] [facility] SOURCE OF OXYGEN Nasal cannula [facility] Comment on above: Performed By: #### L [id number] ####[facility] [id number] [place] [address] [facility] BASIC METABOLIC PANELon 10-11 Anion gap [Moles/Vol] 7 mmol/L Normal 7-20 [facility] Comment on above: Performed By: #### L [id number] ####[facility])[address] [place] [address] Calcium [Mass/Vol] 7.7 mg/dL Low 8.6-10.3 [facility] Comment on above: Performed By: #### L [id number] ####[facility])[address] [place] [address] Chloride [Moles/Vol] 108 mmol/L High 98-107 [facility] Comment on above: Performed By: #### L [id number] ####[facility] ([facility])[address] [address] CO2 [Moles/Vol] 21 mmol/L Normal 21-31 [facility] Comment on above: Performed By: #### L [id number] ####[facility] ([facility])[address] [place] [address] Creatinine [Mass/Vol] 0.75 mg/dL Normal 0.70-1.30 [facility] Comment on above: Performed By: #### L [id number] ####[facility] ([facility])[address] [place] [address] GLOMERULAR FILTRATION RATE ML/MIN/1.73 SQ M.PREDICTED 89.7 mL/min/1.73m*2 Normal >60.0 [facility] Comment on above: Result Comment: The [facility]???s estimated glomerular filtration rate (eGFR) will no [...] of individuals. Performed By: #### L [id number] ####[facility] [place] [address] Glucose [Mass/Vol] 186 mg/dL High 70-100 [facility] Comment on above: Performed By: #### L [id number] ####[facility] [place] [address] Potassium [Moles/Vol] 3.9 mmol/L Normal 3.5-5.1 [facility] Comment on above: Performed By: #### L [id number] ####[facility])[address] [place] [address] Sodium [Moles/Vol] 136 mmol/L Normal 136-145 [facility] Comment on above: Performed By: #### L [id number] ####[facility] ([facility])[address] [place] [address] Urea nitrogen [Mass/Vol] 15 mg/dL Normal 7-25 [facility] Comment on above: Performed By: #### L [id number] ####[facility] ([facility])[address] [place] [address] UREA NITROGEN/CREATININE (MASS RATIO) IN SER/PLAS 20.00 Normal [facility] Comment on above: Performed By: #### L [id number] ####[facility] ([facility])[address] [place] [address] Anion gap [Moles/Vol] 8 mmol/L Normal 7-20 [facility] Comment on above: Performed By: #### L [id number] ####[facility] ([facility])[address] [place] [address] Calcium [Mass/Vol] 9.2 mg/dL Normal 8.6-10.3 [facility] Comment on above: Performed By: #### L [id number] ####[facility] ([facility])[address] [place] [address] Chloride [Moles/Vol] 103 mmol/L Normal 98-107 [facility] Comment on above: Performed By: #### L [id number] ####[facility])[address] [place] [address] CO2 [Moles/Vol] 26 mmol/L Normal 21-31 [facility] Comment on above: Performed By: #### L [id number] ####[facility])[address] [place] [address] Creatinine [Mass/Vol] 0.98 mg/dL Normal 0.70-1.30 [facility] Comment on above: Performed By: #### L [id number] ####[facility] ([facility])[address] [place] [address] GLOMERULAR FILTRATION RATE ML/MIN/1.73 SQ M.PREDICTED 75.1 mL/min/1.73m*2 Normal >60.0 [facility] Comment on above: Result Comment: The [facility]???s estimated glomerular filtration rate (eGFR) will no [...] of individuals. Performed By: #### L [id number] ####[facility] ([facility])[address] [place] [address] Glucose [Mass/Vol] 142 mg/dL High 70-100 [facility] Comment on above: Performed By: #### L [id number] ####[facility] ([facility])[address] [place] [address] Potassium [Moles/Vol] 4.2 mmol/L Normal 3.5-5.1 [facility] Comment on above: Performed By: #### L [id number] ####[facility] ([facility])[address] [place] [address] Sodium [Moles/Vol] 137 mmol/L Normal 136-145 [facility] Comment on above: Performed By: #### L [id number] ####[facility] ([facility])[address] [place] [address] Urea nitrogen [Mass/Vol] 20 mg/dL Normal 7-25 [facility] Comment on above: Performed By: #### L [id number] ####[facility] ([facility])[address] [place] [address] UREA NITROGEN/CREATININE (MASS RATIO) IN SER/PLAS 20.41 Normal [facility] Comment on above: Performed By: #### L [id number] ####[facility] ([facility])[address] [place] [address] CALCIUM, IONIZEDon CALCIUM IONIZED (MMOL/L) IN BLOOD 1.23 mmol/L Normal 1.15-1.33 [facility] Comment on above: Performed By: #### C ALCIUM, IONIZED ####[facility] [id number] [place] [address] [place] CBCon 11-03-2022 Erythrocyte distribution width (RBC) [Ratio] 13.5 % Normal 11.5-15.0 [facility] Comment on above: Performed By: #### L [id number] ####[facility] ([facility])[address] [place] [address] ERYTHROCYTE MEAN CORPUSCULAR HEMOGLOBIN CONCENTRATION (G/DL) BY AUTOMATED 35.4 g/dL High 32.0-35.0 [facility] Comment on above: Performed By: #### L [id number] ####[facility] ([facility])[address] [place] [address] Hematocrit (Bld) [Volume fraction] 37.6 % Low 39.0-55.0 [facility] Comment on above: Performed By: #### L [id number] ####[facility] ([facility])[address] [place] [address] Hemoglobin (Bld) [Mass/Vol] 13.3 g/dL Normal 13.0-17.0 [facility] Comment on above: Performed By: #### L [id number] ####[facility] ([facility])[address] [place] [address] IMMATURE PLATELET FRACTION % 4.3 % Normal 0.8-6.3 [facility] Comment on above: Performed By: #### L [id number] ####[facility] ([facility])[address] [place] [address] MCH (RBC) [Entitic mass] 32.5 pg Normal 27.0-33.0 [facility] Comment on above: Performed By: #### L [id number] ####[facility] [address] MCV (RBC) [Entitic vol] 91.9 fL Normal 82.0-98.0 [facility] Comment on above: Performed By: #### L [id number] ####[facility] ([facility])[address] [address] PLATELETS (10*3/UL) IN BLOOD AUTOMATED COUNT 76 10*3/uL Low 150-400 [facility] Comment on above: Performed By: #### L [id number] ####[facility] ([facility])[address] [address] RBC (Bld) [#/Vol] 4.09 10*6/uL Low 4.20-5.70 [facility] Comment on above: Performed By: #### L [id number] ####[facility] ([facility])[address] [address] WBC (Bld) [#/Vol] 5.36 10*3/uL Normal 4.00-10.60 [facility] Comment on above: Performed By: #### L [id number] ####[facility] ([facility])[address] [address] CBC WITH AUTO DIFFERENTIALon 11-03-2022 Erythrocyte distribution width (RBC) [Ratio] 13.7 % Normal 11.5-15.0 [facility] Comment on above: Performed By: #### L [id number] ####[facility] ([facility])[address] [place] [address] ERYTHROCYTE MEAN CORPUSCULAR HEMOGLOBIN CONCENTRATION (G/DL) BY AUTOMATED 35.3 g/dL High 32.0-35.0 [facility] Comment on above: Performed By: #### L [id number] ####[facility] ([facility])[address] [place], [place] [address] Hematocrit (Bld) [Volume fraction] 23.5 % Low 39.0-55.0 [facility] Comment on above: Performed By: #### L [id number] ####[facility] ([facility])[address] [place] [address] Hemoglobin (Bld) [Mass/Vol] 8.3 g/dL Low 13.0-17.0 [facility] Comment on above: Performed By: #### L [id number] ####[facility] ([facility])[address] [place] [address] IMMATURE PLATELET FRACTION % 4.6 % Normal 0.8-6.3 [facility] Comment on above: Performed By: #### L [id number] ####[facility] ([facility])[address] [place] [address] MCH (RBC) [Entitic mass] 33.1 pg High 27.0-33.0 [facility] Comment on above: Performed By: #### L [id number] ####[facility] ([facility])[address] [place] [address] MCV (RBC) [Entitic vol] 93.6 fL Normal 82.0-98.0 [facility] Comment on above: Performed By: #### L [id number] ####[facility] ([facility])[address] [place] [address] NRBC (PER 100 WBCS) BY AUTOMATED COUNT 0.0 % Normal 0.0-0.0 [facility] Comment on above: Performed By: #### L [id number] ####[facility] ([facility])[address] [place] [address] PLATELETS (10*3/UL) IN BLOOD AUTOMATED COUNT 93 10*3/uL Low 150-400 [facility] Comment on above: Performed By: #### L [id number] ####[facility] ([facility])[address] [place] [address] RBC (Bld) [#/Vol] 2.51 10*6/uL Low 4.20-5.70 [facility] Comment on above: Performed By: #### L [id number] ####[facility] ([facility])[address] [place] [address] WBC (Bld) [#/Vol] 12.09 10*3/uL High 4.00-10.60 [facility] Comment on above: Performed By: #### L [id number] ####[facility] ([facility])[address] [place] [address] Erythrocyte distribution width (RBC) [Ratio] 13.6 % Normal 11.5-15.0 [facility] Comment on above: Performed By: #### L [id number] ####[facility] [place] [address] ERYTHROCYTE MEAN CORPUSCULAR HEMOGLOBIN CONCENTRATION (G/DL) BY AUTOMATED 34.8 g/dL Normal 32.0-35.0 [facility] Comment on above: Performed By: #### L [id number] ####[facility] [place] [address] Hematocrit (Bld) [Volume fraction] 25.0 % Low 39.0-55.0 [facility] Comment on above: Performed By: #### L [id number] ####[facility] ([facility])[address] [place] [address] Hemoglobin (Bld) [Mass/Vol] 8.7 g/dL Low 13.0-17.0 [facility] Comment on above: Performed By: #### L [id number] ####[facility] ([facility])[address] [place] [address] IMMATURE PLATELET FRACTION % 4.2 % Normal 0.8-6.3 [facility] Comment on above: Performed By: #### L [id number] ####[facility] ([facility])[address] [place] [address] MCH (RBC) [Entitic mass] 32.7 pg Normal 27.0-33.0 [facility] Comment on above: Performed By: #### L [id number] ####[facility] ([facility])[address] [place] [address] MCV (RBC) [Entitic vol] 94.0 fL Normal 82.0-98.0 [facility] Comment on above: Performed By: #### L [id number] ####[facility] ([facility])[address] [address] NRBC (PER 100 WBCS) BY AUTOMATED COUNT 0.0 % Normal 0.0-0.0 [facility] Comment on above: Performed By: #### L [id number] ####[facility] ([facility])[address] [place] [address] PLATELETS (10*3/UL) IN BLOOD AUTOMATED COUNT 53 10*3/uL Low 150-400 [facility] Comment on above: Performed By: #### L [id number] ####[facility] ([facility])[address] [place] [address] RBC (Bld) [#/Vol] 2.66 10*6/uL Low 4.20-5.70 [facility] Comment on above: Performed By: #### L [id number] ####[facility] ([facility])[address] [place] [address] WBC (Bld) [#/Vol] 4.28 10*3/uL Normal 4.00-10.60 [facility] Comment on above: Performed By: #### L [id number] ####[facility] ([facility])[address] [place] [address] COMPREHENSIVE METABOLIC PANE Sridhar 11-03-2022 Albumin [Mass/Vol] 3.3 g/dL Low 3.5-5.7 [facility] Comment on above: Performed By: #### L [id number] ####[facility] ([facility])[address] [place] [address] ALP [Catalytic activity/Vol] 31 U/L Low 34-104 [facility] Comment on above: Performed By: #### L [id number] ####[facility] ([facility])[address] [place] [address] ALT [Catalytic activity/Vol] 38 U/L Normal 7-52 [facility] Comment on above: Performed By: #### L [id number] ####[facility] [place] [address] Anion gap [Moles/Vol] 8 mmol/L Normal 7-20 [facility] Comment on above: Performed By: #### L [id number] ####[facility] ([facility])[address] [place] [address] AST [Catalytic activity/Vol] 22 U/L Normal 13-39 [facility] Comment on above: Performed By: #### L [id number] ####[facility] ([facility])[address] [place] [address] Bilirubin [Mass/Vol] 1.1 mg/dL High 0.3-1.0 [facility] Comment on above: Performed By: #### L [id number] ####[facility] ([facility])[address] [place] [address] Calcium [Mass/Vol] 7.7 mg/dL Low 8.6-10.3 [facility] Comment on above: Performed By: #### L [id number] ####[facility] ([facility])[address] [place] [address] Chloride [Moles/Vol] 106 mmol/L Normal 98-107 [facility] Comment on above: Performed By: #### L [id number] ####[facility] [place] [address] CO2 [Moles/Vol] 21 mmol/L Normal 21-31 [facility] Comment on above: Performed By: #### L [id number] ####[facility] [place] [address] Creatinine [Mass/Vol] 0.67 mg/dL Low 0.70-1.30 [facility] Comment on above: Performed By: #### L [id number] ####[facility] [place] [address] GLOMERULAR FILTRATION RATE ML/MIN/1.73 SQ M.PREDICTED 94.0 mL/min/1.73m*2 Normal >60.0 [facility] Comment on above: Result Comment: The [facility]???s estimated glomerular filtration rate (eGFR) will no [...] of individuals. Performed By: #### L [id number] ####[facility] ([facility])[address] [place] [address] Glucose [Mass/Vol] 221 mg/dL High 70-100 [facility] Comment on above: Performed By: #### L [id number] ####[facility] ([facility])[address] [place] [address] Potassium [Moles/Vol] 4.0 mmol/L Normal 3.5-5.1 [facility] Comment on above: Performed By: #### L [id number] ####[facility] ([facility])[address] [facility] [place] [address] Performed By: #### P OTASSIUM, WHOLE BLOOD ####[facility] [id number] [place] [address] [place] Protein [Mass/Vol] 4.9 g/dL Low 6.0-8.3 [facility] Comment on above: Performed By: #### L [id number] ####[facility] ([facility])[address] [facility] [place] [address] Sodium [Moles/Vol] 135 mmol/L Low 136-145 [facility] Comment on above: Performed By: #### L [id number] ####[facility] ([facility])[address] [place] [address] Urea nitrogen [Mass/Vol] 16 mg/dL Normal 7-25 [facility] Comment on above: Performed By: #### L [id number] ####[facility] ([facility])[address] [place] [address] UREA NITROGEN/CREATININE (MASS RATIO) IN SER/PLAS 23.88 Normal [facility] Comment on above: Performed By: #### L [id number] ####[facility] ([facility])[address] [place] [address] HEPARIN LEVELon 11-03-2022 HEPARIN UNFRACTIONATED (U/ML) IN PPP BY CHROMOGENIC METHOD 0.39 IU/mL Normal 0.3-0.7 [facility] Comment on above: Result Comment: Masha roxaban and Apixaban will interfere with the anti Xa assay used to monitor UFH and LMWH. Performed By: #### L [id number] ####[facility] ([facility])[address] [place] [address] HEPARIN UNFRACTIONATED (U/ML) IN PPP BY CHROMOGENIC METHOD 0.51 IU/mL Normal 0.3-0.7 [facility] Comment on above: Result Comment: Davidson roxaban and Apixaban will interfere with the anti Xa assay used to monitor UFH and LMWH. Performed By: #### L [id number] ####[facility] ([facility])[address] [place] [address] HISTOLOGY - TISSUE EXAMon LAB AP CASE REPORT Normal [facility] Comment on above: Order Comment: Pre-o p diagnosis:Critical limb ischemia of left lower extremity (CMS/HCC) [I70.222]PAD (peripheral artery disease) (CMS/HCC) [I73.9]Encounter for pre-operative examination [Z01.818] Result Comment: Surg ical Pathology Case: [id number] Provider: Erwin Hurd MD Collected: 11/03/2022 1231Ordering Location: [facility] Main Operating Room Received: 11/04/2022 0718Pathologist: Ga Callicott, MDSpecimens: A) - Femoral Artery, RIGHT GROIN PLAQUE B) - Femoral Artery, LEFT GROIN PLAQUE Performed By: #### L [id number] ####[facility] ([facility] [place] [address] LAB AP CLINICAL INFORMATION Normal [facility] Comment on above: Order Comment: Pre-o p diagnosis:Critical limb ischemia of left lower extremity (CMS/HCC) [I70.222]PAD (peripheral artery disease) (CMS/HCC) [I73.9]Encounter for pre-operative examination [Z01.818] Result Comment: Post -Op OrpnyyuhrD04.222 - Critical limb ischemia of left lower extremity (CMS/HCC) [ICD-10-CM]I73.9 - PAD (peripheral artery disease) (CMS/HCC) [ICD-10-CM]Z01.818 - Encounter for pre-operative examination [ICD-10-CM] Performed By: #### L [id number] ####[facility] ([facility])[address] [place] [address] LAB AP GROSS DESCRIPTION Normal [facility] Comment on above: Order Comment: Pre-o p [...] is yellow, focally friable, and moderately calcified. Gore Inserter sections of the specimen are submitted in 1 cassette following decalcification.Shadia Mueller, Pathologists' Computer Aide studentDamichael Valencia Pathologists' AssistantB. Femoral Artery.Part B is received in formalin labeled Max Sanchez and left groin plaque. It consists of 4 lui hardened tubular possible plaque fragments and 2 lui rubbery irregular fragments ranging from 1.1 x 0.7 x 0.4 cm to 3.6 x 1.1 x 0.8 cm. The specimen is serially sectioned revealing the cut surface yellow-lui, moderately friable, and focally calcified. Gore Inserter sections are submitted in 1 cassette following decalcification.Shadia Mueller, Pathologists' Computer Aide Tova Valencia Pathologists' Computer Aide Performed By: #### L [id number] ####[facility] ([facility])[address] [facility] [address] LAB AP MICROSCOPIC DESCRIPTION Microscopic examination performed. Normal [facility] Comment on above: Order Comment: Pre-o p diagnosis:Critical limb ischemia of left lower extremity (CMS/HCC) [I70.222]PAD (peripheral artery disease) (CMS/HCC) [I73.9]Encounter for pre-operative examination [Z01.818] Performed By: #### L [id number] ####[facility] ([facility])[address] [place] [address] LAB AP REPORT FINAL DIAGNOSIS NARRATIVE [facility] Comment on above: Order Comment: Pre-o p diagnosis:Critical limb ischemia of left lower extremity (CMS/HCC) [I70.222]PAD (peripheral artery disease) (CMS/HCC) [I73.9]Encounter for pre-operative examination [Z01.818] Result Comment: A. A rtery, femoral, right, endarterectomy:Atheromatous plaque with calcification.B. Artery, femoral, left ,endarterectomy:Artheromatous plaque with calcification. Performed By: #### L [id number] ####[facility] ([facility])[address] [place] [address] HPon 11-03-2022 HP Normal [facility] LACTIC ACID WITH 4 HOUR REFL EXon 11-03-2022 LACTATE (MMOL/L) IN SER/PLAS 2.1 mmol/L Normal 0.5-2.2 [facility] Comment on above: Performed By: #### L [id number] ####[facility] ([facility])[address] [place] [address] LACTIC ACID, PLASMAon 2022 LACTATE (MMOL/L) IN SER/PLAS 1.3 mmol/L Normal 0.5-2.2 [facility] Comment on above: Performed By: #### L [id number] ####[facility] ([facility])[address] [place] [address] MAGNESIUMon 11-03-2022 Magnesium [Mass/Vol] 1.5 mg/dL Low 1.9-2.7 [facility] Comment on above: Performed By: #### L [id number] ####[facility] ([facility])[address] [place] [address] Magnesium [Mass/Vol] 1.9 mg/dL Normal 1.9-2.7 [facility] Comment on above: Performed By: #### L [id number] ####[facility] ([facility])[address] [place] [address] MANUAL DIFFERENTIALon 2022 BASOPHILS (10*3/UL) IN BLOOD BY CALCULATION 0.01 10*3/uL Normal [facility] Comment on above: Performed By: #### L [id number] ####[facility] ([facility])[address] [place] [address] BASOPHILS/100 LEUKOCYTES IN BLOOD BY AUTOMATED COUNT 0.1 % Normal 0.0-1.0 [facility] Comment on above: Performed By: #### L [id number] ####[facility] ([facility])[address] [place] [address] EOSINOPHILS (10*3/UL) IN BLOOD BY CALCULATION 0.00 10*3/uL Normal [facility] Comment on above: Performed By: #### L [id number] ####[facility] ([facility])[address] [facility] [place] [address] EOSINOPHILS/100 LEUKOCYTES IN BLOOD BY AUTOMATED COUNT 0.0 % Normal 0.0-6.0 [facility] Comment on above: Performed By: #### L [id number] ####[facility] ([facility])[address] [place] [address] IMMATURE GRANULOCYTES (10*3/UL) IN BLOOD BY CALCULATION 0.05 Normal [facility] Comment on above: Performed By: #### L [id number] ####[facility] ([facility])[address] [place] [address] IMMATURE GRANULOCYTES/100 LEUKOCYTES IN BLOOD BY AUTOMATED COUNT 0.4 % Normal 0.0-1.0 [facility] Comment on above: Performed By: #### L [id number] ####[facility] ([facility])[address] [place] [address] LYMPHOCYTES (10*3/UL) IN BLOOD BY CALCULATION 0.36 10*3/uL Low 1.20-4.00 [facility] Comment on above: Performed By: #### L [id number] ####[facility] ([facility])[address] [place] [address] LYMPHOCYTES/100 LEUKOCYTES IN BLOOD BY AUTOMATED COUNT 3.0 % Low 20.0-45.0 [facility] Comment on above: Performed By: #### L [id number] ####[facility] ([facility])[address] [place] [address] MONOCYTES (10*3/UL) IN BLOOD BY CALCUATION 0.74 10*3/uL Normal [facility] Comment on above: Performed By: #### L [id number] ####[facility] ([facility])[address] [place] [address] MONOCYTES/100 LEUKOCYTES IN BLOOD BY AUTOMATED COUNT 6.1 % Normal 5.0-12.0 [facility] Comment on above: Performed By: #### L [id number] ####[facility] ([facility])[address] [place] [address] NEUTROPHILS (10*3/UL) IN BLOOD BY CALCULATION 10.9 10*3/uL High 1.6-7.6 [facility] Comment on above: Performed By: #### L [id number] ####[facility] ([facility])[address] [place] [address] NEUTROPHILS/100 LEUKOCYTES IN BLOOD BY AUTOMATED COUNT 90.4 % High 40.0-72.0 [facility] Comment on above: Performed By: #### L [id number] ####[facility] ([facility])[address] [place] [address] BASOPHILS (10*3/UL) IN BLOOD BY CALCULATION 0.01 10*3/uL Normal [facility] Comment on above: Performed By: #### L [id number] ####[facility] ([facility])[address] [place] [address] BASOPHILS/100 LEUKOCYTES IN BLOOD BY AUTOMATED COUNT 0.2 % Normal 0.0-1.0 [facility] Comment on above: Performed By: #### L [id number] ####[facility] ([facility])[address] [place] [address] EOSINOPHILS (10*3/UL) IN BLOOD BY CALCULATION 0.00 10*3/uL Normal [facility] Comment on above: Performed By: #### L [id number] ####[facility] ([facility])[address] [place] [address] EOSINOPHILS/100 LEUKOCYTES IN BLOOD BY AUTOMATED COUNT 0.0 % Normal 0.0-6.0 [facility] Comment on above: Performed By: #### L [id number] ####[facility] ([facility])[address] [place] [address] IMMATURE GRANULOCYTES (10*3/UL) IN BLOOD BY CALCULATION 0.02 Normal [facility] Comment on above: Performed By: #### L [id number] ####[facility] ([facility])[address] [place] [address] IMMATURE GRANULOCYTES/100 LEUKOCYTES IN BLOOD BY AUTOMATED COUNT 0.5 % Normal 0.0-1.0 [facility] Comment on above: Performed By: #### L [id number] ####[facility] ([facility])[address] [place] [address] LYMPHOCYTES (10*3/UL) IN BLOOD BY CALCULATION 0.32 10*3/uL Low 1.20-4.00 [facility] Comment on above: Performed By: #### L [id number] ####[facility] ([facility])[address] [place] [address] LYMPHOCYTES/100 LEUKOCYTES IN BLOOD BY AUTOMATED COUNT 7.5 % Low 20.0-45.0 [facility] Comment on above: Performed By: #### L [id number] ####[facility] ([facility])[address] [place] [address] MONOCYTES (10*3/UL) IN BLOOD BY CALCUATION 0.16 10*3/uL Normal [facility] Comment on above: Performed By: #### L [id number] ####[facility] ([facility])[address] [facility] [place] [address] MONOCYTES/100 LEUKOCYTES IN BLOOD BY AUTOMATED COUNT 3.7 % Low 5.0-12.0 [facility] Comment on above: Performed By: #### L [id number] ####[facility] ([facility])[address] [place] [address] NEUTROPHILS (10*3/UL) IN BLOOD BY CALCULATION 3.8 10*3/uL Normal 1.6-7.6 [facility] Comment on above: Performed By: #### L [id number] ####[facility] ([facility])[address] [facility] [place] [address] NEUTROPHILS/100 LEUKOCYTES IN BLOOD BY AUTOMATED COUNT 88.1 % High 40.0-72.0 [facility] Comment on above: Performed By: #### L [id number] ####[facility] ([facility])[address] [place] [address] MRSA/MSSA DNA NASALon 2022 MRSA DNA Negative Normal Negative, Invalid [facility] Comment on above: Performed By: #### L [id number] ####[facility] ([facility])[address] [place] [address] MSSA DNA Negative Normal Negative, Invalid [facility] Comment on above: Performed By: #### L [id number] ####[facility] ([facility])[address] [place] [address] NURSNOTEon 11-03-2022 NURSNOTE Vascular at bedside assessing patient Nini Elam RN PACU Normal [facility] NURSNOTE Labs drawn at bedsid e by FACILITIES AND GROUNDS DIRECTOR from arterial line and sent to lab Nini Elam WELDER GAS TUNGSTEN ARC Normal [facility] NURSNOTE Ok to give 5 mg of Compazine per anesthesia Nini Elam WELDER GAS TUNGSTEN ARC [facility] NURSNOTE Fluoro- 3.5 min K- 162 Contrast- 105ml Normal [facility] NURSNOTE ACT RESULTS 1355- 279 1410- 252 1429- 239 1454- 246 1529- 175 1538- 188 [facility] NURSNOTE ACT RESULTS 1233- 279 1255- 272 1323- 265 [facility] NURSNOTE 1145: UPDATED I N WAITING ROOM [facility] NURSNOTE INTRAOP ACT RESULTS: 1113: BASELINE ACT 150 [facility] OPNOTEon 11-03-2022 OPNOTE Normal [facility] PHOSPHORUSon 11-03-2022 Magnesium [Mass/Vol] 3.5 mg/dL Normal 2.5-5.0 [facility] Comment on above: Performed By: #### L [id number] ####[facility] ([facility])[address] [place] [address] Magnesium [Mass/Vol] 3.2 mg/dL Normal 2.5-5.0 [facility] Comment on above: Performed By: #### L [id number] ####[facility] ([facility])[address] [place] [address] POCT ACTIVATED CLOTTING TIME UNSOLICITED RESULTSon 11-03-2022 POC ACTIVATED CLOTTING TIME 188 sec High 82-152 [facility] Comment on above: Performed By: #### L [id number] ####[facility] [place] [address] POC ACTIVATED CLOTTING TIME 175 sec High 82-152 [facility] Comment on above: Performed By: #### L [id number] ####[facility] ([facility])[address] [place] [address] POC ACTIVATED CLOTTING TIME 246 sec High 82-152 [facility] Comment on above: Performed By: #### L [id number] ####[facility] ([facility])[address] [place] [address] POC ACTIVATED CLOTTING TIME 239 sec High 82-152 [facility] Comment on above: Performed By: #### L [id number] ####[facility] ([facility])[address] [place] [address] POC ACTIVATED CLOTTING TIME 252 sec High 82-152 [facility] Comment on above: Performed By: #### L [id number] ####[facility] ([facility])[address] [place] [address] POC ACTIVATED CLOTTING TIME 279 sec High 82-152 [facility] Comment on above: Performed By: #### L [id number] ####[facility] ([facility] [place] [address] POC ACTIVATED CLOTTING TIME 265 sec High 82-152 [facility] Comment on above: Performed By: #### L [id number] ####[facility] [place] [address] POC ACTIVATED CLOTTING TIME 272 sec High 82-152 [facility] Comment on above: Performed By: #### L [id number] ####[facility] ([facility] [place] [address] POC ACTIVATED CLOTTING TIME 279 sec High 82-152 [facility] Comment on above: Performed By: #### L [id number] ####[facility] ([facility])[address] [place] [address] POC ACTIVATED CLOTTING TIME 150 sec Normal 82-152 [facility] Comment on above: Performed By: #### L [id number] ####[facility] ([facility])[address] [place] [address] POCT GLUCOSE METER UNSOLICIT ED RESULTSon 11-03-2022 Glucose [Mass/Vol] 138 mg/dL High 70-105 [facility] Comment on above: Result Comment: phag lynn Performed By: #### L [id number] ####[facility] ([facility])[address] [place] [address] Glucose [Mass/Vol] 145 mg/dL High 70-105 [facility] Comment on above: Result Comment: meredith guajardo Performed By: #### L [id number] ####[facility] ([facility])[address] [place] [address] POCT PERFUSION PANEL UNSOLIC ITED RESULTSon 11-03-2022 CO2 [Moles/Vol] 26.0 mmol/L Normal 21.0-29.0 [facility] Comment on above: Performed By: #### L [id number] ####[facility] ([facility])[address] [place] [address] Glucose [Mass/Vol] 127 mg/dL High 70-105 [facility] Comment on above: Performed By: #### L [id number] ####[facility] ([facility])[address] [place] [address] HCO3 (Bld) [Moles/Vol] 24.7 mmol/L Normal 23.0-28.0 [facility] Comment on above: Performed By: #### L [id number] ####[facility] ([facility])[address] [place] [address] Hematocrit (Bld) [Volume fraction] 29 % Low 38-51 [facility] Comment on above: Performed By: #### L [id number] ####[facility] ([facility])[address] [place] [address] Hemoglobin (Bld) [Mass/Vol] 9.9 g/dL Low 12.0-17.0 [facility] Comment on above: Performed By: #### L [id number] ####[facility] ([facility])[address] [place] [address] POCT BASE EXCESS 0.0 mmol/L Normal -2.0-3.0 [facility] Comment on above: Performed By: #### L [id number] ####[facility] ([facility])[address] [place] [address] POCT IONIZED CALCIUM 1.19 mmol/L Normal 1.12-1.32 [facility] Comment on above: Performed By: #### L [id number] ####[facility] ([facility])[address] [place] [address] POCT PCO2 40.9 mmHg Low 41.0-51.0 [facility] Comment on above: Performed By: #### L [id number] ####[facility] ([facility])[address] [place] [address] POCT PH 7.39 Normal 7.31-7.41 [facility] Comment on above: Performed By: #### L [id number] ####[facility] ([facility])[address] [place] [address] POCT PO2 217 mmHg High 80-105 [facility] Comment on above: Performed By: #### L [id number] ####[facility] ([facility])[address] [place] [address] POCT SO2 100 % High 95-98 [facility] Comment on above: Performed By: #### L [id number] ####[facility] ([facility])[address] [place] [address] Potassium [Moles/Vol] 3.9 mmol/L Normal 3.5-4.9 [facility] Comment on above: Performed By: #### L [id number] ####[facility] ([facility])[address] [place] [address] Sodium [Moles/Vol] 138 mmol/L Normal 138.0-146.0 [facility] Comment on above: Performed By: #### L [id number] ####[facility] ([facility])[address] [place] [address] POCT SARS-COV-2 PCRon 2022 POC SARS-COV-2 ANTIGEN Negative Normal Negative [facility] Comment on above: Result Comment: ID N [...] Certificate of Accreditation. Performed By: #### L [id number] ####[facility] ([facility])[address] [place] [address] POTASSIUM, WHOLE BLOODon Potassium [Moles/Vol] 3.9 mmol/L Normal 3.5-5.1 [facility] Comment on above: Performed By: #### P OTASSIUM, WHOLE BLOOD ####[facility] [id number] [place] [address] [place] PROTIME-INRon 11-03-2022 INR IN PPP BY COAGULATION ASSAY 1.49 High 0.90-1.10 [facility] Comment on above: Result Comment: [facility] RECOMMENDED INR FOR WARFARIN THERAPY CONDITION INRPROPHYLAXIS OF VENOUS THROMBOSIS 2-3(HIGH-RISK SURGERY)TREATMENT OF VENOUS THROMBOSIS 2-3TREATMENT OF PULMONARY EMBOLISM 2-3PREVENTION OF SYSTEMIC EMBOLISM: 2-3 ACUTE MYOCARDIAL INFARCTION TISSUE HEART VALVES VALVULAR HEART DISEASE ATRIAL FIBRILLATION RECURRENT SYSTEMIC EMBOLISMMECHANICAL HEART VALVE 2.5-3.5 FROM: ORAL ANTICOAGULANTS. MECHANISM OF ACTION, CLINICAL EFFECTIVENESS, AND OPTIMAL THERAPEUTIC RANGE. CHEST 1995;108:231S-246S. Performed By: #### L [id number] ####[facility] ([facility])[address] [place] [address] PROTHROMBIN TIME (PT) IN PPP BY COAGULATION ASSAY 17.8 Seconds High 12.3-14.8 [facility] Comment on above: Performed By: #### L [id number] ####[facility] ([facility])[address] [place] [address] INR IN PPP BY COAGULATION ASSAY 1.54 High 0.90-1.10 [facility] Comment on above: Result Comment: ACCC P [...] CHEST 1995;108:231S-246S. Performed By: #### L [id number] ####[facility] ([facility])[address] [place] [address] PROTHROMBIN TIME (PT) IN PPP BY COAGULATION ASSAY 18.3 Seconds High 12.3-14.8 [facility] Comment on above: Performed By: #### L [id number] ####[facility] ([facility])[address] [place] [address] SODIUM, WHOLE BLOODon 2022 SODIUM, WHOLE BLOOD 134 Low 136-145 [facility] Comment on above: Performed By: #### S ODIUM, WHOLE BLOOD ####[facility] [id number] [place] [address] [place] SODIUM, WHOLE BLOOD 133 Low 136-[address] [facility] Comment on above: Performed By: #### S ODIUM, WHOLE BLOOD ####[facility] [id number] [place] [address] [place] TYPE AND SCREENon 11-03-2022 AB SCREEN Negative Normal [facility] Comment on above: Performed By: #### L [id number] ####[facility], ABO group Nom (Bld) O Normal [facility] Comment on above: Performed By: #### L [id number] ####[facility], RH TYPE IN BLOOD Positive [facility] Comment on above: Performed By: #### L [id number] ####[facility], CBC W MANUAL DIFFon 11-01-19 ATYPICAL LYMPH # Normal [facility] Comment on above: Performed By: #### C ESTHELA #### [facility] [address] [place] [address] Dr. Joselyn Coffey ATYPICAL LYMPH % Normal [facility] Comment on above: Performed By: #### C ESTHELA #### [facility] [address] [address] [address] Joselyn Coffey BAND # Normal 0.0-0.3 [facility] Comment on above: Performed By: #### C ESTHELA #### [facility] [address] [address] [address] Joselyn Coffey BAND % Normal 0-5 [facility] Comment on above: Performed By: #### C ESTHELA #### [facility] [address] [address] [address] Joselyn Coffey BASOM # 0.00 103/ul Normal 0.00-0.10 [facility] Comment on above: Performed By: #### C BCDEV #### [facility] [address] [place] [address] Dr. Joselyn Coffey BASOM % 0.0 % Critically low 0.2-2.0 [facility] Comment on above: Performed By: #### C BCDEV #### [facility] [address] [place] [address] Dr. Joselyn Coffey BLAST # Normal [facility] Comment on above: Performed By: #### C BCDEV #### [facility] [address] [place] [address] Dr. Joselyn Coffey BLAST % Normal [facility] Comment on above: Performed By: #### C ESTHELA #### [facility] [address] [place] [address] Dr. Joselyn Coffey CORRECTED WBC Normal 4.0-11.0 [facility] Comment on above: Performed By: #### C ESTHELA #### [facility] [address] [place] [address] Dr. Joselyn Coffey EOS # 0.00 103/ul Normal 0.00-0.70 [facility] Comment on above: Performed By: #### C ESTHELA #### [facility] [address] [place] [address] Dr. Joselyn Coffey EOS% 0.0 % Critically low 0.9-7.0 [facility] Comment on above: Performed By: #### C ESTHELA #### [facility] [address] [place] [address] Dr. Joselyn Coffey HCT 36.5 % Critically low 42.0-54.0 [facility] Comment on above: Performed By: #### C ESTHELA #### [facility] [address] [place] [address] Dr. Joselyn Coffey HGB 13.2 g/dl Critically low 14.0-18.0 [facility] Comment on above: Performed By: #### C ESTHELA #### [facility] [address] [place] [address] Dr. Joselyn Coffey LYMPHM # 0.35 103/ul Critically low 1.20-3.80 [facility] Comment on above: Performed By: #### C ESTHELA #### [facility] [address] [address] [address] Joselyn Coffey LYMPHM% 7.0 % Critically low 20.5-60.0 [facility] Comment on above: Performed By: #### C ESTHELA #### [facility] [address] [place] [address] Dr. Joselyn Coffey MCH 31.9 pg Normal 25.9-34.0 [facility] Comment on above: Performed By: #### C ESTHELA #### [facility] [address] [place] [address] Dr. Joselyn Coffey MCHC 36.2 g/dl Critically high 29.9-35.2 [facility] Comment on above: Performed By: #### C ESTHELA #### [facility] [address] [place] [address] Dr. Joselyn Coffey MCV 88.2 fL Normal 80.0-94.0 [facility] Comment on above: Performed By: #### C ESTHELA #### [facility] [address] [place] [address] Dr. Joselyn Coffey METAMYELOCYTE # Normal [facility] Comment on above: Performed By: #### C ESTHELA #### [facility] [address] [place] [address] Dr. Joselyn Coffey METAMYELOCYTE % Normal [facility] Comment on above: Performed By: #### C ESTHELA #### [facility] [address] [place] [address] Dr. Joselyn Coffey MONOM# 0.35 103/ul Normal 0.30-0.80 [facility] Comment on above: Performed By: #### C ESTHELA #### [facility] [address] [place] [address] Dr. Joselyn Coffey MONOM% 7.0 % Normal 1.7-12.0 [facility] Comment on above: Performed By: #### C ESTHELA #### [facility] [address] [place] [address] Dr. Joselyn Coffey MPV 10.7 fL Normal 9.5-13.5 [facility] Comment on above: Performed By: #### C ESTHELA #### [facility] [address] [place] [address] Dr. Joselyn Coffey MYELOCYTE # Normal [facility] Comment on above: Performed By: #### C ESTHELA #### [facility] [address] [place] [address] Dr. Joselyn Coffey MYELOCYTE % Normal [facility] Comment on above: Performed By: #### C ESTHELA #### [facility] [address] [place] [address] Dr. Joselyn Coffey NRBC Normal [facility] Comment on above: Performed By: #### C ESTHELA #### [facility] [address] [place] [address] Dr. Joselyn Coffey PLT 79 103/ul Critically low 150-450 [facility] Comment on above: Performed By: #### C ESTHELA #### [facility] [address] [place] [address] Dr. Joselyn Coffey RBC 4.14 106/ul Critically low 4.70-6.10 [facility] Comment on above: Performed By: #### C ESTHELA #### [facility] [address] [place] [address] Dr. Joselyn Coffey RDW 13.2 % Normal 11.0-15.0 [facility] Comment on above: Performed By: #### C ESTHELA #### [facility] [address] [place] [address] Dr. Joselyn Coffey SEG # 4.30 103/ul Normal 1.40-6.50 [facility] Comment on above: Performed By: #### C ESTHELA #### [facility] [address] [place] [address] Dr. Joselyn Coffey SEG % 86.0 % Critically high 43.0-75.0 [facility] Comment on above: Performed By: #### C ESTHELA #### [facility] [address] [place] [address] Dr. Joselyn Coffey WBC 5.0 103/ul Normal 4.0-11.0 [facility] Comment on above: Performed By: #### C ESTHELA #### [facility] [address] [place] [address] Dr. Joselyn Coffey MRSA NARES #1on 11-01-2022 MRSA NARES #1 Culture Observations : NO GROWTH OF MRSA AT 48 HOURS. Normal [facility] Comment on above: Performed By: #### C ESTHELA #### [facility] [address] [place] [address] Dr. Joselyn Coffey PROF CHEM 8 (BAS METB)on Anion gap [Moles/Vol] 12.7 mmol/L Normal Th e [facility] Comment on above: Performed By: #### P TT, PT #### [facility] [address] [place] [address] Dr. Joselyn Coffey Calcium [Mass/Vol] 8.9 mg/dL Normal 8.5-10.1 [facility] Comment on above: Performed By: #### P TT, PT #### [facility] [address] [place] [address] Dr. Joselyn Coffey Chloride [Moles/Vol] 100 mmol/L Normal 98-107 [facility] Comment on above: Performed By: #### P TT, PT #### [facility] [address] [place] [address] Dr. Joselyn Coffey CO2 [Moles/Vol] 29.0 mmol/L Normal 21.0-32.0 [facility] Comment on above: Performed By: #### P TT, PT #### [facility] [address] [place] [address] Dr. Joselyn Coffey Creatinine [Mass/Vol] 1.06 mg/dL Normal 0.70-1.30 [facility] Comment on above: Performed By: #### P TT, PT #### [facility] [address] [place] [address] Dr. Joselyn Coffey EGFR-AF GUAMANIAN >60 Normal >=60 [facility] Comment on above: Performed By: #### P TT, PT #### [facility] [address] [place] [address] Dr. Joselyn Coffey EGFR-NON AF GUAMANIAN >60 Normal >=60 [facility] Comment on above: Performed By: #### P TT, PT #### [facility] [address] [address] [address] Joselyn Coffey Glucose [Mass/Vol] 278 mg/dL Critically high 74-106 [facility] Comment on above: Performed By: #### P TT, PT #### [facility] [address] [address] [address] Joselyn Coffey Potassium [Moles/Vol] 4.7 mmol/L Normal 3.5-5.1 [facility] Comment on above: Performed By: #### P TT, PT #### [facility] [address] [address] [address] Joselyn Coffey Sodium [Moles/Vol] 137 mmol/L Normal 136-145 [facility] Comment on above: Performed By: #### P TT, PT #### [facility] [address] [address] [address] Joselyn Coffey Urea nitrogen [Mass/Vol] 17.0 mg/dL Normal 7.0-18.0 [facility] Comment on above: Performed By: #### P TT, PT #### [facility] [address] [place] [address] Dr. Joselyn Coffey Urea nitrogen/Creatinine [Mass ratio] 16.0 mg/mg Normal [facility] Comment on above: Performed By: #### P TT, PT #### [facility] [address] [place] [address] Dr. Joselyn Coffey PROTIMEon 11-01-2022 INR Coag (PPP) [Relative time] 1.10 {INR} Normal [facility] Comment on above: Performed By: #### P TT, PT #### [facility] [address] [place] [address] Dr. Joselyn Coffey INR GUIDELINES SEE BELOW Normal [facility] Comment on above: Result Comment: SNOW RED INR: 2.0 - 3.0 CONDITIONS NOT LISTED BELOW 2.5 - 3.5 FOR PROSTHETIC HEART VALVE REPLACEMENT 2.5 - 3.5 RECURRENT THROMBOSIS Performed By: #### P TT, PT #### [facility] [address] [place], [place] [address] Dr. Joselyn Coffey PT Coag (PPP) [Time] 11.6 s Normal 9.0-11.6 [facility] Comment on above: Performed By: #### P TT, PT #### [facility] [address] [place], [place] [address] Dr. Joselyn Coffey PTTon 11-01-2022 aPTT Coag (Bld) [Time] 29.8 s Normal 22.3-36.2 [facility] Comment on above: Performed By: #### P TT, PT #### [facility] [address] [place], [place] [address] Dr. Joselyn Coffey [id number] 10-27-2022 [id number] [facility] 36on 10-27-2022 36 Normal [facility] 36on 10-26-2022 36 a [facility] CTA ABD MARY JANE WWO CON LE [...] by: ANDREA ARTEAGA Date: 2022-10-20 15:34 Normal [facility] ANESon 10-14-2022 ANES Normal [facility] HPon 10-14-2022 HP Normal [facility] BONE MARROW SCREENon 022 BONE MARROW SCR SEE BONE MARROW SPEC IAL REPORT FORM Normal [facility] Comment on above: Performed By: #### 5 0970 #### [facility] [address] [place] [address], [facility] CBC W/DIFFon 11-09-2021 ABS IMM GRANS 0.0 10*3/uL Normal 0.0-0.2 [facility] Comment on above: Performed By: #### 5 102, 27663 #### [facility] [address] [place] [address], [facility] ABS NEUTROPHILS 2.4 10*3/uL Normal 1.6-7.6 [facility] Comment on above: Performed By: #### 5 010, 21498 #### [facility] [address] [place] [address], [facility] ANISO Moderate Normal [facility] Comment on above: Performed By: #### 5 102, 48835 #### [facility] [address] [place] [address], [facility] Basophils (Bld) [#/Vol] 0.0 10*3/uL Normal 0.0-0.2 [facility] Comment on above: Performed By: #### 5 102, 92720 #### [facility] [address] [place] [address], [facility] Basophils/100 WBC (Bld) 0.6 % Normal 0.0-1.0 [facility] Comment on above: Performed By: #### 5 102, 30821 #### [facility] [address] [place] [address], [facility] ELLIPTOCYTES Slight Normal [facility] Comment on above: Performed By: #### 5 102, 82861 #### [facility] [address] [place] [address], [place] Eosinophils (Bld) [#/Vol] 0.0 10*3/uL Normal 0.0-0.5 [facility] Comment on above: Performed By: #### 5 010, 90935 #### [facility] [address] [place] [address], [place] Eosinophils/100 WBC (Bld) 1.2 % Normal 0.0-6.0 [facility] Comment on above: Performed By: #### 5 102, 18770 #### [facility] [address] [place] [address], [facility] Erythrocyte distribution width (RBC) [Ratio] 26.7 % High 11.5-15.0 [facility] Comment on above: Performed By: #### 5 102, 60661 #### [facility] [address] [place] [address], [facility] Hematocrit (Bld) [Volume fraction] 37.1 % Low 39.0-50.0 [facility] Comment on above: Performed By: #### 5 102, 18978 #### [facility] [address] [place] [address], [facility] Hemoglobin (Bld) [Mass/Vol] 11.1 g/dL Low 13.0-17.0 [facility] Comment on above: Performed By: #### 5 102, 53633 #### [facility] [address] [place] [address], [facility] IMM PLATELET FRAC 4.6 % Normal 0.8-6.3 [facility] Comment on above: Performed By: #### 5 102, 50337 #### [facility] [address] [place] [address], [facility] IMMATURE GRANS 0.3 % Normal 0.0-1.0 [facility] Comment on above: Performed By: #### 5 102, 73875 #### [facility] [address] [place] [address], [facility] Lymphocytes (Bld) [#/Vol] 0.5 10*3/uL Low 1.2-4.0 [facility] Comment on above: Performed By: #### 5 102, 49567 #### [facility] [address] [place] [id number], [facility] Lymphocytes/100 WBC (Bld) 13.5 % Low 20.0-45.0 [facility] Comment on above: Performed By: #### 5 102, 19412 #### [facility] [address] [place] [address], [facility] MCH (RBC) [Entitic mass] 26.9 pg Low 27.0-33.0 [facility] Comment on above: Performed By: #### 5 102, 80279 #### [facility] [address] [place] [address], [facility] MCHC (RBC) [Mass/Vol] 29.9 g/dL Low 32.0-35.0 [facility] Comment on above: Performed By: #### 5 102, 89688 #### [facility] [address] [place] [address], [facility] MCV (RBC) [Entitic vol] 90.0 fL Normal 82.0-98.0 [facility] Comment on above: Performed By: #### 5 102, 60082 #### [facility] [address] [facility] [place] [address], [facility] Monocytes (Bld) [#/Vol] 0.5 10*3/uL Normal 0.1-1.0 [facility] Comment on above: Performed By: #### 5 102, 04588 #### [facility] [address] [place] [address], [facility] MONOS 14.0 % High 5.0-12.0 [facility] Comment on above: Performed By: #### 5 102, 16299 #### [facility] [address] [place] [address], [facility] Neutrophils/100 WBC (Bld) 70.4 % Normal 40.0-72.0 [facility] Comment on above: Performed By: #### 5 102, 60554 #### [facility] [address] [place] [address], [facility] Nucleated RBC/100 WBC (Bld) [Ratio] 0 % Normal 0-0 [facility] Comment on above: Performed By: #### 5 010, 32971 #### [facility] [address] [place] [address], [facility] OVALOCYTES Slight Normal [facility] Comment on above: Performed By: #### 5 0103, 13048 #### [facility] [address] [place] [address], [facility] PLAT CNT 91 10*3/uL Low 150-400 [facility] Comment on above: Performed By: #### 5 010, 23094 #### [facility] [address] [facility] [place] [address], [facility] POIK Moderate Normal [facility] Comment on above: Performed By: #### 5 010, 18168 #### [facility] [address] [facility] [place] [address], [facility] RBC (Bld) [#/Vol] 4.12 10*6/uL Low 4.20-5.70 [facility] Comment on above: Performed By: #### 5 102, 39802 #### [facility] [address] [facility] [place] [address], [facility] WBC (Bld) [#/Vol] 3.42 10*3/uL Low 4.00-10.60 [facility] Comment on above: Performed By: #### 5 0103, 41569 #### [facility] [address] [facility] [place] [address], [facility] COMP METABOLIC PANELon 11-09 Albumin [Mass/Vol] 4.0 g/dL Normal 3.5-5.7 [facility] Comment on above: Performed By: #### 0 0121, 94969, 29779, 20443, 09044, 82949 #### [facility] [address] [place] [address], [facility] ALKALINE PHOSPH 64 IU/L Normal 34-104 [facility] Comment on above: Performed By: #### 0 0121, 16446, 56988, 61490, 39570, 07400 #### [facility] [address] [place] [address], [place] ALT [Catalytic activity/Vol] 39 U/L Normal 7-52 [facility] Comment on above: Performed By: #### 0 0121, 78847, 75148, 36763, 92521, 17152 #### [facility] [address] [place] [address], [place] AST [Catalytic activity/Vol] 39 U/L Normal 13-39 [facility] Comment on above: Performed By: #### 0 0121, 08087, 86603, 42513, 76827, 42987 #### [facility] [address] [place] [address], [place] Bilirubin [Mass/Vol] 0.6 mg/dL Normal 0.3-1.0 [facility] Comment on above: Performed By: #### 0 0121, 79582, 45149, 64766, 44785, 19556 #### [facility] [address] [place] [address], [place] Calcium [Mass/Vol] 9.2 mg/dL Normal 8.6-10.3 [facility] Comment on above: Performed By: #### 0 0121, 41946, 14760, 88276, 40556, 74793 #### [facility] [address] [place] [address], [place] Chloride [Moles/Vol] 103 mmol/L Normal 98-107 [facility] Comment on above: Performed By: #### 0 0121, 92110, 68819, 78258, 14236, 71057 #### [facility] [address] [place] [address], [place] CO2 [Moles/Vol] 27 mmol/L Normal 21-31 [facility] Comment on above: Performed By: #### 0 0121, 06600, 88733, 38953, 04603, 38831 #### [facility] [address] [place] [address], [place] Creatinine [Mass/Vol] 0.80 mg/dL Normal 0.70-1.30 [facility] Comment on above: Performed By: #### 0 0121, 53383, 51556, 60252, 04697, 62197 #### [facility] [address] [place] [address], [place] GFR/1.73 sq M.predicted among blacks MDRD (S/P/Bld) [Vol rate/Area] mL/min/{1.73_m2} Normal >60 [facility] Comment on above: Result Comment: Calc ulation may not be valid for patients over 70 years Performed By: #### 0 0121, 84215, 54982, 90197, 23715, 36649 #### [facility] [address] [place] [address], [place] GFR/1.73 sq M.predicted among non-blacks MDRD (S/P/Bld) [Vol rate/Area] mL/min/{1.73_m2} Normal >60 [facility] Comment on above: Result Comment: Calc ulation may not be valid for patients over 70 years Performed By: #### 0 0121, 51572, 88794, 34052, 09565, 23362 #### [facility] [address] [place] [address], [place] Glucose [Mass/Vol] 78 mg/dL Normal 70-100 [facility] Comment on above: Performed By: #### 0 0121, 76830, 04071, 45063, 42963, 10116 #### [facility] [address] [place] [address], [place] Potassium [Moles/Vol] 3.9 mmol/L Normal 3.5-5.1 [facility] Comment on above: Performed By: #### 0 0121, 48889, 61717, 85178, 07317, 99752 #### [facility] [address] [place] [address], [facility] Protein [Mass/Vol] 7.3 g/dL Normal 6.0-8.3 [facility] Comment on above: Performed By: #### 0 0121, 21955, 22033, 84725, 64944, 78881 #### [facility] [address] [place] [address], [facility] Sodium [Moles/Vol] 137 mmol/L Normal 136-145 [facility] Comment on above: Performed By: #### 0 0121, 80542, 05982, 21472, 90090, 38693 #### [facility] [address] [place] [address], [facility] Urea nitrogen [Mass/Vol] 11 mg/dL Normal 7-25 [facility] Comment on above: Performed By: #### 0 0121, 10900, 42737, 23034, 88874, 10965 #### [facility] [address] [facility] [place] [address], [facility] FERRITINon 11-09-2021 Ferritin [Mass/Vol] 34 ng/mL Normal 24-336 [facility] Comment on above: Performed By: #### 0 0121, 89340, 50266, 22440, 98149, 35335 #### [facility] [address] [place] [address], [facility] FOLATE SERUMon 11-09-2021 SERUM FOLATE 12.15 ng/mL Normal 6.60-1000.0 0 [facility] Comment on above: Result Comment: Norm al range reflects World Health Organization International Standard Performed By: #### 0 0121, 02629, 13784, 80414, 30451, 25423 #### [facility] [address] HAPTOGLOBINon 11-09-2021 HAPTOGLOBIN 43 mg/dL Normal 26-164 [facility] Comment on above: Performed By: #### 5 3, 91733 #### [facility] [address] [place] [address], [facility] HEMATOLOGY COMPLETE EVALUATI ON siPARDIGMon 11-09-2021 RESULT Results faxed to kalpesh menezes physician and sent to HIM Normal [facility] Comment on above: Result Comment: Test performed by [facility] * [address], [address] * [place], [place] * [phone] Co Founder: Aguilar Winston M.D. RESULTS FAXED TO [phone] Performed By: #### 5 0103, 83135 #### [facility] [address] LDH BLOODon 11-09-2021 LDH 114 Units/L Low 140-271 [facility] Comment on above: Performed By: #### 0 0121, 09063, 66296, 02091, 41392, 21705 #### [facility] [address] [facility] [address] [facility] RETICULOCYTE PANELon 022 ABSOLUTE RETICULOCYTE 0.0548 10*6/uL Normal 0.02 50-0.10 00 [facility] Comment on above: Performed By: #### 5 0103, 72344 #### [facility] [address] [place] [address], [facility] IMMATURE RETICULOCYTE FRACTION 11.0 % Normal 2.0-16.0 [facility] Comment on above: Performed By: #### 5 0103, 20461 #### [facility] [address] [place] [address], [facility] RETIC COUNT 1.33 % Normal 0.50-1.80 [facility] Comment on above: Performed By: #### 5 0103, 30766 #### [facility] [address] RETICULOCYTE HEMOGLOBIN 42.0 pg High 28.0-36.0 [facility] Comment on above: Performed By: #### 5 0103, 40740 #### [facility] [address] [place] [address], [facility] TIBC- INCLUDES IRONon 2021 FE SATURATION 16 % Low 20-50 [facility] Comment on above: Performed By: #### 0 0121, 38722, 15660, 54607, 05358, 19167 #### [facility] [address] [place] [address], [facility] Iron [Mass/Vol] 67 ug/dL Normal 50-212 [facility] Comment on above: Performed By: #### 0 0121, 73384, 12556, 89302, 74128, 09577 #### [facility] [address] [facility] [place] [address], [facility] TIBC 420 mcg/dL Normal 250-450 [facility] Comment on above: Performed By: #### 0 0121, 77390, 10496, 89566, 06215, 83993 #### [facility] [address] [place] [place] [address], [facility] UIBC 353 mcg/dL Normal 155-355 [facility] Comment on above: Performed By: #### 0 0121, 33558, 86553, 92167, 29979, 93058 #### [facility] [address] [place] [place] [address], [facility] VITAMIN B12on 11-09-2021 Cobalamin (Vitamin B12) [Mass/Vol] 733 pg/mL Normal 180-914 [facility] Comment on above: Result Comment: REFE RENCE RANGES: 180-914 pg/mL Normal 145-179 pg/mL Indeterminate <145 pg/mL Deficient Performed By: #### 0 0121, 06407, 12793, 29806, 71401, 40971 #### [facility] [address] CBC W/DIFFon 09-15-2021 ABS IMM GRANS 0.0 10*3/uL Normal 0.0-0.2 [facility] Comment on above: Performed By: #### 5 0103 #### [facility] [address] ABS NEUTROPHILS 1.7 10*3/uL Normal 1.6-7.6 [facility] Comment on above: Performed By: #### 5 0103 #### [facility] [address] ANISO Moderate Normal [facility] Comment on above: Performed By: #### 5 3 #### [facility] [address] Basophils (Bld) [#/Vol] 0.0 10*3/uL Normal 0.0-0.2 [facility] Comment on above: Performed By: #### 5 3 #### [facility] [address] Basophils/100 WBC (Bld) 0.5 % Normal 0.0-1.0 [facility] Comment on above: Performed By: #### 5 3 #### [facility] [facility] [address] ELLIPTOCYTES Slight Normal [facility] Comment on above: Performed By: #### 5 3 #### [facility] [address] Eosinophils (Bld) [#/Vol] 0.0 10*3/uL Normal 0.0-0.5 [facility] Comment on above: Performed By: #### 5 0103 #### [facility] [address] Eosinophils/100 WBC (Bld) 0.9 % Normal 0.0-6.0 [facility] Comment on above: Performed By: #### 5 0103 #### [facility] [address] Erythrocyte distribution width (RBC) [Ratio] 18.6 % High 11.5-15.0 [facility] Comment on above: Performed By: #### 3 #### [facility] [address] Hematocrit (Bld) [Volume fraction] 24.4 % Low 39.0-50.0 [facility] Comment on above: Performed By: #### 102 #### [facility] [address] Hemoglobin (Bld) [Mass/Vol] 6.8 g/dL Low 13.0-17.0 [facility] Comment on above: Performed By: #### 3 #### [facility] [address] IMM PLATELET FRAC 6.0 % Normal 0.8-6.3 [facility] Comment on above: Performed By: #### 3 #### [facility] [address] IMMATURE GRANS 0.0 % Normal 0.0-1.0 [facility] Comment on above: Performed By: #### 5 0103 #### [facility] [address] [place] [address], [facility] Lymphocytes (Bld) [#/Vol] 0.2 10*3/uL Low 1.2-4.0 [facility] Comment on above: Performed By: #### 5 3 #### [facility] [address] [place] [address], [facility] Lymphocytes/100 WBC (Bld) 10.9 % Low 20.0-45.0 [facility] Comment on above: Performed By: #### 5 0103 #### [facility] [address] [facility] [place] [address], [facility] MCH (RBC) [Entitic mass] 22.1 pg Low 27.0-33.0 [facility] Comment on above: Performed By: #### 5 0103 #### [facility] [address] [place] [address], [facility] MCHC (RBC) [Mass/Vol] 27.9 g/dL Low 32.0-35.0 [facility] Comment on above: Performed By: #### 5 0103 #### [facility] [address] [place] [address], [facility] MCV (RBC) [Entitic vol] 79.2 fL Low 82.0-98.0 [facility] Comment on above: Performed By: #### 5 0103 #### [facility] [address] [place] [address], [facility] Monocytes (Bld) [#/Vol] 0.3 10*3/uL Normal 0.1-1.0 [facility] Comment on above: Performed By: #### 5 0103 #### [facility] [address] [place] [address], [facility] MONOS 12.2 % High 5.0-12.0 [facility] Comment on above: Performed By: #### 5 0103 #### [facility] [address] [place] [address], [facility] Neutrophils/100 WBC (Bld) 75.5 % High 40.0-72.0 [facility] Comment on above: Performed By: #### 5 3 #### [facility] [address] [place] [address], [facility] Nucleated RBC/100 WBC (Bld) [Ratio] 0 % Normal 0-0 [facility] Comment on above: Performed By: #### 5 0103 #### [facility] [address] [facility] [place] [address], [facility] OVALOCYTES Slight Normal [facility] Comment on above: Performed By: #### 5 0103 #### [facility] [address] [place] [address], [facility] PLAT CNT 91 10*3/uL Low 150-400 [facility] Comment on above: Performed By: #### 5 0103 #### [facility] [address] [facility] [place] [address], [facility] POIK Moderate Normal [facility] Comment on above: Performed By: #### 5 0103 #### [facility] [address] [facility] [place] [address], [facility] POLY Slight Normal [facility] Comment on above: Performed By: #### 5 0103 #### [facility] [address] [facility] [place] [address], [facility] RBC (Bld) [#/Vol] 3.08 10*6/uL Low 4.20-5.70 [facility] Comment on above: Performed By: #### 5 0103 #### [facility] [address] [facility] [place] [address], [facility] WBC (Bld) [#/Vol] 2.21 10*3/uL Low 4.00-10.60 [facility] Comment on above: Performed By: #### 5 0103 #### [facility] [address] [facility] [place] [address], [facility] COMP METABOLIC PANELon 09-15 Albumin [Mass/Vol] 3.6 g/dL Normal 3.5-5.7 [facility] Comment on above: Performed By: #### 5 3, [id number] #### [facility] [address] [place] [address], [place] ALKALINE PHOSPH 57 IU/L Normal 34-104 [facility] Comment on above: Performed By: #### 5 102, [id number] #### [facility] [address] [place] [address], [place] ALT [Catalytic activity/Vol] 24 U/L Normal 7-52 [facility] Comment on above: Performed By: #### 5 010, [id number] #### [facility] [address] [place] [address], [place] AST [Catalytic activity/Vol] 29 U/L Normal 13-39 [facility] Comment on above: Performed By: #### 5 102, [id number] #### [facility] [address] [place] [address], [place] Bilirubin [Mass/Vol] 0.5 mg/dL Normal 0.3-1.0 [facility] Comment on above: Performed By: #### 5 102, [id number] #### [facility] [address] [place] [address], [place] Calcium [Mass/Vol] 8.8 mg/dL Normal 8.6-10.3 [facility] Comment on above: Performed By: #### 5 102, [id number] #### [facility] [address] [place] [address], [place] Chloride [Moles/Vol] 104 mmol/L Normal 98-107 [facility] Comment on above: Performed By: #### 5 010, [id number] #### [facility] [address] [place] [address], [place] CO2 [Moles/Vol] 26 mmol/L Normal 21-31 [facility] Comment on above: Performed By: #### 5 010, [id number] #### [facility] [address] [place] [address], [place] Creatinine [Mass/Vol] 0.79 mg/dL Normal 0.70-1.30 [facility] Comment on above: Performed By: #### 5 0103, [id number] #### [facility] [address] [place] [address], [place] GFR/1.73 sq M.predicted among blacks MDRD (S/P/Bld) [Vol rate/Area] mL/min/{1.73_m2} Normal >60 [facility] Comment on above: Result Comment: Calc ulation may not be valid for patients over 70 years Performed By: #### 5 0103, [id number] #### [facility] [address] [place] [address], [place] GFR/1.73 sq M.predicted among non-blacks MDRD (S/P/Bld) [Vol rate/Area] mL/min/{1.73_m2} Normal >60 [facility] Comment on above: Result Comment: Calc ulation may not be valid for patients over 70 years Performed By: #### 5 010, [id number] #### [facility] [address] [place] [address], [place] Glucose [Mass/Vol] 123 mg/dL High 70-100 [facility] Comment on above: Performed By: #### 5 0103, [id number] #### [facility] [address] [place] [address], [place] Potassium [Moles/Vol] 3.8 mmol/L Normal 3.5-5.1 [facility] Comment on above: Performed By: #### 5 0103, [id number] #### [facility] [address] [place] [address], [place] Protein [Mass/Vol] 6.8 g/dL Normal 6.0-8.3 [facility] Comment on above: Performed By: #### 5 0103, [id number] #### [facility] [address] [place] [address], [place] Sodium [Moles/Vol] 137 mmol/L Normal 136-145 [facility] Comment on above: Performed By: #### 5 0103, [id number] #### [facility] [address] Urea nitrogen [Mass/Vol] 10 mg/dL Normal 7-25 [facility] Comment on above: Performed By: #### 5 0103, [id number] #### [facility] [address] Vital Signs Date Time Vital Sign Value Performing Clinician Facility 07-19-2023 13:00-0400 Diastolic blood pressure 74 mm[Hg] Robert Gomez Other [facility] Other 07-19-2023 13:00-0400 SaO2% (BldA) [Mass fraction] 99 % Robert Gomez Other [facility] Other 07-19-2023 13:00-0400 Systolic blood pressure 136 mm[Hg] Robert Gomez Other [facility] Other 05-09-2023 09:23-0400 Blood Pressure Location Erwin Hudr [facility] 05-09-2023 09:23-0400 Diastolic blood pressure 63 mm[Hg] Erwin Hurd [facility] 05-09-2023 09:23-0400 Heart rate 97 /min Erwin Vickey [facility] 05-09-2023 09:23-0400 SaO2% (BldA) [Mass fraction] 99 % Erwin Vickey [facility] 05-09-2023 09:23-0400 Systolic blood pressure 129 mm[Hg] Erwin Hurd [facility] 04-08-2023 08:29-0400 Diastolic blood pressure 56 mm[Hg] Erwin Hurd [facility] 04-08-2023 08:29-0400 Heart rate 98 /min Erwin Vickey [facility] 04-08-2023 08:29-0400 Mean blood pressure 82 mm[Hg] Erwin Vickey [facility] 04-08-2023 08:29-0400 Systolic blood pressure 134 mm[Hg] Erwin Vickey [facility] 04-08-2023 08:29-0400 Heart rate 100 /min Erwin Vickey [facility] 04-08-2023 08:29-0400 SaO2% (BldA) [Mass fraction] 100 % Erwin Hurd [facility] 04-08-2023 08:29-0400 Respiratory rate 17 /min Erwin Hurd [facility] 04-08-2023 08:29-0400 Diastolic blood pressure 66 mm[Hg] Erwin Vickey [facility] 04-08-2023 08:29-0400 Mean blood pressure 85 mm[Hg] Erwin Babcockan [facility] 04-08-2023 08:29-0400 Systolic blood pressure 124 mm[Hg] Erwin Hurd [facility] 03-10-2023 12:03-0400 Hourly Rounding [facility] 03-10-2023 12:03-0400 Promise to Return [facility] 03-10-2023 11:37-0400 Heart rate 75 /min [facility] 03-10-2023 11:37-0400 SaO2% (BldA) [Mass fraction] 100 % [facility] 03-10-2023 11:37-0400 Body temperature 97.7 [degF] [facility] 03-10-2023 11:37-0400 Diastolic blood pressure 54 mm[Hg] [facility] 03-10-2023 11:37-0400 Mean blood pressure 81 mm[Hg] [facility] 03-10-2023 11:37-0400 Systolic blood pressure 136 mm[Hg] [facility] 03-10-2023 11:00-0400 Hourly Rounding [facility] 03-10-2023 11:00-0400 Promise to Return [facility] 03-10-2023 10:00-0400 Hourly Rounding [facility] 03-10-2023 10:00-0400 Promise to Return [facility] 03-10-2023 08:48-0400 gluc 116 mg/dL [facility] 03-10-2023 08:13-0400 Heart rate 118 /min [facility] 03-10-2023 08:13-0400 SaO2% (BldA) [Mass fraction] 96 % [facility] 03-10-2023 08:13-0400 Body temperature 98.06 [degF] [facility] 03-10-2023 08:12-0400 Diastolic blood pressure 69 mm[Hg] [facility] 03-10-2023 08:12-0400 Mean blood pressure 90 mm[Hg] [facility] 03-10-2023 08:12-0400 Systolic blood pressure 131 mm[Hg] [facility] 03-10-2023 00:40-0400 Blood Pressure Location [facility] 03-10-2023 00:40-0400 Body temperature 97.7 [degF] [facility] 03-10-2023 00:40-0400 Diastolic blood pressure 65 mm[Hg] [facility] 03-10-2023 00:40-0400 Heart rate 120 /min [facility] 03-10-2023 00:40-0400 Mean blood pressure 80 mm[Hg] [facility] 03-10-2023 00:40-0400 Respiratory rate 18 /min [facility] 03-10-2023 00:40-0400 SaO2% (BldA) [Mass fraction] 97 % [facility] 03-10-2023 00:40-0400 Systolic blood pressure 109 mm[Hg] [facility] 03-09-2023 17:18-0400 gluc 98 mg/dL [facility] 03-09-2023 11:50-0400 gluc 219 mg/dL [facility] 03-09-2023 09:22-0400 Heart rate 116 /min [facility] 03-09-2023 03:42-0400 Mean blood pressure 94 mm[Hg] [facility] 03-08-2023 16:08-0400 Mean blood pressure 100 mm[Hg] [facility] 03-08-2023 16:00-0400 Respiratory rate 18 /min [facility] 03-08-2023 11:00-0400 Respiratory rate 16 /min [facility] 03-08-2023 05:51-0400 Body temperature 97.16 [degF] [facility] 03-08-2023 05:51-0400 Mean blood pressure 105 mm[Hg] [facility] 03-07-2023 21:15-0400 Body temperature 98.06 [degF] [facility] 03-06-2023 09:34-0400 Heart rate 92 /min [facility] 03-05-2023 08:00-0400 Heart rate 84 /min [facility] 03-03-2023 12:51-0400 Body temperature 98.42 [degF] [facility] 03-03-2023 12:51-0400 Respiratory rate 17 /min [facility] 03-03-2023 12:40-0400 Respiratory rate 18 /min [facility] 03-03-2023 12:35-0400 Respiratory rate 18 /min [facility] 03-03-2023 12:26-0400 Body temperature 98.06 [degF] [facility] 03-01-2023 18:04-0400 Heart rate 120 /min [facility] 03-01-2023 17:45-0400 Heart rate 113 /min [facility] 03-01-2023 16:45-0400 Heart rate 108 /min [facility] 02-23-2023 11:14-0400 gluc [facility] 02-17-2023 10:28-0400 Blood Pressure Location Erwin Hurd [facility] 02-17-2023 10:28-0400 Diastolic blood pressure 63 mm[Hg] Ivaniabinh Vickey [facility] 02-17-2023 10:28-0400 Heart rate 108 /min Erwin Vickey [facility] 02-17-2023 10:28-0400 SaO2% (BldA) [Mass fraction] 100 % Erwin Vickey [facility] 02-17-2023 10:28-0400 Systolic blood pressure 117 mm[Hg] Ivaniabinh Hurd [facility] 02-15-2023 16:53-0400 Diastolic blood pressure 85 mm[Hg] Brennon Nancy [facility] 02-15-2023 16:53-0400 Heart rate 108 /min Brennon Nancy [facility] 02-15-2023 16:53-0400 Mean blood pressure 109 mm[Hg] Brennon Nancy [facility] 02-15-2023 16:53-0400 Respiratory rate 18 /min Brennon Nancy [facility] 02-15-2023 16:53-0400 SaO2% (BldA) [Mass fraction] 96 % Brennon Nancy [facility] 02-15-2023 16:53-0400 Systolic blood pressure 156 mm[Hg] Brennon Nancy [facility] 02-15-2023 16:00-0400 Diastolic blood pressure 66 mm[Hg] Brennon Nancy [facility] 02-15-2023 16:00-0400 Heart rate 109 /min Brennon Nancy [facility] 02-15-2023 16:00-0400 Respiratory rate 16 /min Brennon Nancy [facility] 02-15-2023 16:00-0400 SaO2% (BldA) [Mass fraction] 100 % Brennon Nancy [facility] 02-15-2023 16:00-0400 Systolic blood pressure 154 mm[Hg] Brnenon Nancy [facility] 02-15-2023 15:00-0400 Diastolic blood pressure 71 mm[Hg] Brennon Nancy [facility] 02-15-2023 15:00-0400 Heart rate 91 /min Brennon Nancy [facility] 02-15-2023 15:00-0400 SaO2% (BldA) [Mass fraction] 99 % Brennon Cruz [facility] 02-15-2023 15:00-0400 Systolic blood pressure 155 mm[Hg] Brennon Cruz [facility] 02-15-2023 11:02-0400 Body temperature 98.06 [degF] Brennon Cruz [facility] 02-15-2023 11:02-0400 Heart rate 118 /min Brennon Cruz [facility] 02-10-2023 13:15-0400 Blood Pressure Location Erwin Hurd [facility] 02-10-2023 13:15-0400 Diastolic blood pressure 75 mm[Hg] Erwin Vickey [facility] 02-10-2023 13:15-0400 Heart rate 89 /min Erwin Vickey [facility] 02-10-2023 13:15-0400 SaO2% (BldA) [Mass fraction] 100 % Erwin Vickey [facility] 02-10-2023 13:15-0400 Systolic blood pressure 119 mm[Hg] Mohbinh Vickey [facility] 01-06-2023 11:40-0400 Blood Pressure Location Mohbinh Vickey [facility] 01-06-2023 11:40-0400 Diastolic blood pressure 60 mm[Hg] Mohbinh Vickey [facility] 01-06-2023 11:40-0400 Heart rate 98 /min Erwin Vickey [facility] 01-06-2023 11:40-0400 SaO2% (BldA) [Mass fraction] 99 % Ivaniabinh Vickey [facility] 01-06-2023 11:40-0400 Systolic blood pressure 130 mm[Hg] Mohamed Vickey [facility] 12-23-2022 14:35-0400 Blood Pressure Location Mohamed Vickey [facility] 12-23-2022 14:35-0400 Diastolic blood pressure 70 mm[Hg] Mohamed Vickey [facility] 12-23-2022 14:35-0400 Heart rate 96 /min Mohamed Vickey [facility] 12-23-2022 14:35-0400 SaO2% (BldA) [Mass fraction] 100 % Mohbinh Vickey [facility] 12-23-2022 14:35-0400 Systolic blood pressure 120 mm[Hg] Mohbinh Vickey [facility] 12-09-2022 11:43-0500 Blood Pressure Location Mohbinh Vickey [facility] 12-09-2022 11:43-0500 Diastolic blood pressure 69 mm[Hg] Mohbinh Vickey [facility] 12-09-2022 11:43-0500 Heart rate 88 /min Mohamed Vickey [facility] 12-09-2022 11:43-0500 SaO2% (BldA) [Mass fraction] 96 % Mohamed Vickey [facility] 12-09-2022 11:43-0500 Systolic blood pressure 105 mm[Hg] Mohamed Vickey [facility] 11-22-2022 11:42-0500 Blood Pressure Location Mohamed Vickey [facility] 11-22-2022 11:42-0500 Diastolic blood pressure 80 mm[facility]Hg] [facility] 11-22-2022 11:42-0500 Heart rate 75 /min [facility] 11-22-2022 11:42-0500 SaO2% (BldA) [Mass fraction] 98 % [facility] 11-22-2022 11:42-0500 Systolic blood pressure 130 mm[facility]Hg[facility] Encounters Encounter Date Encounter Type Care Provider Facility Start: 10-05-2023 ambulatory DOROTHY ALBERTO [facility] Start: 09-21-2023 Evaluation and management of inpatient JUHI ALEJANDRO [facility] Start: 09-19-2023 Evaluation and management of inpatient TANJA RAFFI [facility] Start: 09-18-2023 [facility]: 09-18-2023 End: 09-26-2023 Evaluation and management of inpatient ROSSANA YUKI [facility] Start: 09-18-2023 Emergency department patient visit YASIR Jakub NICHOLAS [facility] Start: 08-31-2023 End: 09-01-2023 ambulatory [facility] Start: 07-21-2023 Telephone encounter [facility] Start: 07-21-2023 End: 07-21-2023 ambulatory [facility] Facility:[facility] Start: 07-19-2023 End: 07-19-2023 ambulatory Robert Gomez Other [facility] Other Start: 07-19-2023 Office outpatient vi sit 25 minutes Robert Gomez [facility] Start: 06-20-2023 ambulatory [facility] Start: 05-16-2023 ambulatory [facility] Start: 05-09-2023 End: 05-10-2023 ambulatory Erwin Hurd Facility:[facility] Start: 05-09-2023 End: 05-09-2023 Patient encounter procedure Erwin Hurd [facility] Start: 04-11-2023 End: 04-11-2023 ambulatory Erwin Hurd Facility:[facility] Start: 04-08-2023 End: 04-09-2023 ambulatory Erwin Hurd Facility:[facility] Start: 04-08-2023 End: 04-08-2023 Patient encounter procedure Erwin Hudr [facility] Start: 04-04-2023 End: 04-05-2023 ambulatory Erwin Hurd Facility:[facility] Start: 04-04-2023 End: 04-04-2023 Patient encounter procedure Erwin Hurd [facility] Start: 03-30-2023 End: 04-14-2023 Pre-admission assessment Erwin Hurd [facility] Start: 03-17-2023 End: 03-18-2023 ambulatory Erwin Hurd Facility:[facility] Start: 03-08-2023 End: 03-09-2023 ambulatory Bekah LAUREN Facility:[facility] Start: 02-23-2023 End: 03-10-2023 Evaluation and management of inpatient Alaa ALAHMAD Facility:[facility] Start: 02-23-2023 End: 03-10-2023 Evaluation and management of inpatient Alaa ALAHMAD [facility] Start: 02-18-2023 End: 02-18-2023 ambulatory Erwin Hurd Facility:[facility] Start: 02-18-2023 Emergency department patient visit Brennon Cruz Facility:[facility] Start: 02-17-2023 End: 02-18-2023 ambulatory Erwin Hurd Facility:[facility] Start: 02-17-2023 End: 02-17-2023 Patient encounter procedure Erwin Hurd [facility] Start: 02-15-2023 End: 02-15-2023 Emergency department patient visit Brennon Cruz Facility:[facility] Start: 02-15-2023 End: 02-15-2023 Emergency department patient visit Brennon Cruz [facility] Start: 02-15-2023 End: 02-16-2023 Pre-admission assessment Erwin Hurd [facility] Start: 02-14-2023 End: 02-16-2023 Pre-admission assessment Erwin Hurd [facility] Start: 02-10-2023 End: 02-11-2023 ambulatory Erwin Hurd Facility:[facility] Start: 02-10-2023 End: 02-10-2023 Patient encounter procedure Erwin Hurd [facility] Start: 02-09-2023 End: 02-09-[address] LUCILLE HORTA Facility:[facility] Start: 01-30-2023 Evaluation and management of inpatient LINUS HER [facility] Start: 01-29-2023 End: 01-29-2023 ambulatory [facility] Start: 01-29-2023 End: 02-03-2023 Evaluation and management of inpatient JÚNIOR ANDUJAR [facility] Start: 01-29-2023 End: 01-29-[address] LUCILLE HORTA Facility:[facility] Start: 01-06-2023 End: 01-07-2023 ambulatory Erwin Hurd Facility:[facility] Start: 01-06-2023 End: 01-06-2023 Patient encounter procedure Erwin Hurd [facility] Start: 12-23-2022 End: 12-24-2022 ambulatory Erwin Hurd Facility:[facility] Start: 12-23-2022 End: 12-23-2022 Patient encounter procedure Erwin Hurd [facility] Start: 12-14-2022 End: 12-14-2022 [facility]: 12-09-2022 End: 12-10-2022 ambulatory Erwin Hurd Facility:[facility] Start: 12-09-2022 End: 12-09-2022 Patient encounter procedure Erwin Hurd [facility] Start: 12-02-2022 [facility]: 11-29-2022 End: 11-30-2022 Pre-admission assessment Erwin Hurd [facility] Start: 11-29-2022 Emergency department patient visit MICHELLE CONWAY [facility] Start: 11-29-2022 End: 12-03-2022 [facility]: 11-22-2022 End: 11-23-2022 ambulatory Erwin Hurd Facility:[facility] Start: 11-22-2022 End: 11-22-2022 Patient encounter procedure Erwin Hurd [facility] Start: 11-13-2022 End: 11-15-2022 ambulatory UNKNOWN PROVIDER Facility:[facility] Start: 11-13-2022 Emergency department patient visit REBECCA ZUNIGA [facility] Start: 11-13-2022 End: 11-16-2022 Evaluation and management of inpatient RAMILA QUIROZ [facility] Start: 11-13-2022 End: 11-13-[address] LUCILLE HORTA Facility:[facility] Start: 11-08-2022 End: 01-07-2023 Pre-admission assessment LUCILLE HORTA JR [facility] Start: 11-08-2022 Evaluation and management of inpatient TANJA NUGENT [facility] Start: 11-05-2022 Evaluation and management of inpatient DOROTHY DOMINGUEZ [facility] Start: 11-04-2022 Evaluation and management of inpatient RAGHEB [facility] Start: 11-04-2022 Evaluation and management of inpatient RAGB [facility] Start: 11-03-2022 Encounter for other [facility]procedural examination [facility] Start: 11-03-2022 End: 11-09-2022 Encounter for other preprocedural examination [facility] Start: 11-03-2022 End: 11-09-2022 Evaluation and management of inpatient [facility] Start: 11-01-2022 End: 11-02-2022 ambulatory ERWIN HURD Facility:[facility] Start: 11-01-2022 End: 11-02-2022 Encounter for other preprocedural examination [facility] Facility[facility] Start: 10-27-2022 Encounter for other preprocedural examination [facility] Start: 10-26-2022 End: 10-27-2022 ambulatory [facility] Start: 10-20-2022 End: 10-21-[address] MARCO A OSWALD Facility:[facility] Start: 10-14-2022 End: 10-14-2022 ambulatory MARCO A OSWALD [facility] Start: 05-12-2021 End: 05-13-2021 ambulatory LUCILLE HORTA Facility:[facility] Procedures Date Procedure Procedure Detail Performing Clinician Start: 04-11-2023 Surgical debridement of wound Erwin Hurd Start: 03-03-2023 Amputation above-knee A haley MAHESHAD Start: 11-29-2022 H/O: major vascular surgery Erwin Hurd Appendectomy Alaa ALAHMAD Cholecystectomy Alaa ALAHMAD Coronary artery bypa ss grafts x 2 Alaa ALAHMAD Femorofemoral crosso bharath bypass graft Erwin Hurd Vascular surgery (qu alifier value) Alaa ALAHMAD Vascular surgery (qu alifier value) Erwin Hurd Payers Date Payer Category Payer Medicare [id number] 1958 Private Health Insurance I [id number] 1945 Unknown [id number] 2.16.8 40.1.601351.3.579.2.647 1945 Unknown [id number] 2.16. 840.1.009286.3.579.2.732 1946 Unknown [id number] 2.16. 840.1.102718.3.579.2.732 1946 Unknown [id number] 2.16.84 0.1.644039.3.579.2.593 1946 Unknown [id number] 2.16.84 0.1.315091.3.579.2.593 1946 Unknown [id number] 2.16.84 0.1.601978.3.579.2.593 1946 Unknown [id number] 2.16.84 0.1.157809.3.579.2.593 1946 Unknown [id number] 2.16.84 0.1.451874.3.579.2.593 1946 Unknown [id number] 2.16.8 40.1.386974.3.579.2.727 1946 Unknown [id number] 2.16.8 40.1.054647.3.579.2.727 1946 Unknown [id number] 2.16.8 40.1.179318.3.579.2.727 1946 Unknown [id number] 2.16.8 40.1.991916.3.579.2 1946 Unknown [id number] 2.16.8 40.1.200958.3.579.2 1946 Unknown [id number] 2.16.8 40.1.712731.3.579.2 1946 Unknown [id number] 2.16.8 40.1.372317.3.579.2 1946 Unknown [id number] 2.16.8 40.1.985175.3.579.2 1946 Unknown [id number] 2.16.8 40.1.788072.3.579.2 1946 Unknown [id number] 2.16.8 40.1.451011.3.579.2 1946 Unknown [id number] 2.16.8 40.1.994737.3.579.2 1946 Unknown [id number] 2.16.8 40.1.340767.3.579.2 1946 Unknown [id number] 2.16.8 40.1.274758.3.579.2 1946 Unknown [id number] 2.16.8 40.1.002742.3.579.2 1946 Unknown [id number] 2.16.8 40.1.836908.3.579.2 1946 Unknown [id number] 2.16.8 40.1.665162.3.579.2 1946 Unknown [id number] 2.16.8 40.1.693513.3.579.2 1946 Unknown [id number] 2.16.8 40.1.432011.3.579.2.727 1946 Unknown [id number] 2.16. 840.1.738285.3.579.2.356 Private Health Insurance Unknown [id number] Social History Date Type Detail Facility Start: 11-22-2022 End: 05-09-2023 Tobacco smoking status Ex-smoker (finding) [facility] Tobacco smoking status Never [facility] Sex Assigned At Male [facility] Functional Status Date Assessment Result Facility 05-09-2023 Functional Status No [facility] 04-08-2023 Functional Status No [facility] 02-23-2023 Functional Status N/A [facility] 02-23-2023 Functional Status [facility] 02-17-2023 Functional Status N/A [facility] 02-15-2023 Functional Status N/A [facility] 02-10-2023 Functional Status No [facility] 01-06-2023 Functional Status No [facility] 12-23-2022 Functional Status No [facility] 12-09-2022 Functional Status No [facility] 11-22-2022 Functional Status No [facility] Clinical Notes 11-03-2022 to 10-05-2023 Note Date & Type Note Facility 10-05-2023 Note [facility] 09-26-2023 Note [facility] 09-25-2023 Note [facility] 09-25-2023 Note [facility] 09-25-2023 Note [facility] 09-25-2023 Note Awaiting IV antibiot ic approval and delivery. Sent updates to Yissel ARSHAD updated. OTM will continue to follow. [facility] 09-24-2023 Note [facility] 09-24-2023 Note [facility] 09-24-2023 Note [facility] 09-24-2023 Note [facility] 09-23-2023 Note [facility] 09-23-2023 Note [facility] 09-23-2023 Note [facility] 09-23-2023 Note [facility] 09-22-2023 Note [facility] 09-22-2023 Note [facility] 09-22-2023 Note [facility] 09-22-2023 Note [facility] 09-22-2023 Note [facility] 09-22-2023 Note [facility] 09-22-2023 Note This report has been cancelled. [facility] 09-21-2023 Note [facility] 09-21-2023 Note [facility] 09-20-2023 Note [facility] 09-20-2023 Note [facility] 09-20-2023 Note [facility] 09-20-2023 Note [facility] 09-19-2023 Note [facility] 09-19-2023 Note [facility] 09-18-2023 Note [facility] 08-31-2023 Note Continue IV antibiot ics and serial examination. [facility] 08-31-2023 Note [facility] 08-12-2023 Note Scheduled EGD/Cln/An emia/GI Bleed/EV 08/15/23 @1230, [facility], Dr. Velasquez [facility], #[id number]. Urgent referral from Dr. Horta scanned in Media 08/12/23. Patient holding blood thinner since 07/12/23. 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 Therapy with home health for prosthetic training when obtained-patie nt reports has this in place If tolerates temp prosthesis can f/u 3-6 months for final definitive prosthesis evaluation/pre scription. Monitor for skin breakdown. [employer] Other [id number] NoteAKA stump and physical therapy. Follow- up in a year.[facility]09[facility]23 NoteContinue wound VAC and follow-up in a month. [facility]08-07-2023 [facility]06-30-2023 [id number]:127[facility]06-01-20[facility] Evaluation + Plan noteExtracted from: Title:Discharge Note Author:Alison FINNEGAN Date:03/10/23 Hemodynamically stable condi tion Discharge To, Anticipated II - [facility] Discharged to - Home with family [...] Oral, Supper nystatin 100,000 units/mL Oral Susp, 1905757 unit(s)= 15 mL, Oral, QIDACHS oxymetazoline Nasal 0.05% [place], 2 spray(s), Nasal, BID, PRN senna 8.6 mg Tab, 17.2 mg= 2 tab(s), Oral, BID, PRN SEROquel 25 mg Tab, 25 mg= 1 tab(s), Oral, Bedtime sodium chloride nasal 0.65% spray, 2 spray(s), Nasal, q2hr, PRN Verquvo 10 mg oral tablet, 10 mg= 1 tab(s), Oral, Daily With When Contact Information LUCILLE HORTA In 3 days 02/28/2023 EDT [address] [place] [address] Business (1) Additional Instructions: The office is closed on Fridays. Please contact your PCP on Tuesday, February 28 for an appointment. Thank you! 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 Dressing changes as per orders. 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 -Severe malnutrition, dietitian consult [...] - afrin Orders: oxymetazoline nasal, 2 spray(s), Bon Aqua, Nasal, TID for 72 hour(s), Stop date 03/12/23 11:25:00 EDT, NOW, Start date 03/09/23 11:26:00 EDT Extracted from: Title:APSO Note Author:Megan DONIS Date:03/08/23 1. 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 . Extracted from: Title:APSO Note-neurology Author:Fabian Carrero RN Date:03/08/23 Reason for consult: Persistent encephalopathy ASSESSMENT: [...] of right lower extremity (I70.221: Atherosclerosis of [place] tribes arteries of extremities with rest pain, right [...] status) Extracted from: Title:APSO Note Author:Katheryn WISE, Abeer Date: Assessment/Plan 1. 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 Call out yesterday. - On ASA, plavix, pletal Ordered: [facility] Care/Day High 50 Minutes [id number] 2. Critical limb ischemia of right lower extremity (I70.221: Atherosclerosis of [place] tribes arteries of extremities with rest pain, right leg) - left groin infection, Dr. Hurd recommended continue wound vac to be changed every 3 days with black foam, 125 mmHg - On invanz IV daily, follow-up ID of 3 weeks of antibiotics - picc line in place Ordered: [facility] Care/Day High 50 Minutes [id number] 3. Peripheral vascular disease (I73.9: Peripheral vascular disease, unspecified) - As above Ordered: [facility] Care/Day High 50 Minutes [id number] 4. Acute metabolic encephalopathy (G93.41: Metabolic encephalopathy) [...] - Neurology consulted again today. Ordered: [facility] Care/Day High 50 Minutes 80549 5. Anemia of chronic disease (D63.8: Anemia in other chronic diseases classified elsewhere) - Transfused 2 unit prbc 3 days ago - Hemoglobin stable - On iron infusion Ordered: [facility] Care/Day High 50 Minutes [id number] 6. Diabetes (E11.9: Type 2 diabetes mellitus without complications) - Metformin and SSI Ordered: [facility] Care/Day High 50 Minutes 11678 7. Chronic GERD (K21.9: Gastro-esophageal reflux disease without esophagitis) - Pepcid Ordered: [facility] Care/Day High 50 Minutes 52443 8. No contraindication to deep vein thrombosis (DVT) prophylaxis (Z78.9: Other specified health status) SCDs and Lovenox Ordered: [facility] Care/Day High 50 Minutes 20394 D/C tomorrow if cleared by neurology. Labs ordered for repeat in AM. 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 Critical limb ischemia of right lower extremity (I70.221: Atherosclerosis of [place] tribes arteries of extremities with rest pain, right [...] of right lower extremity (I70.221: Atherosclerosis of grand [place] tribes arteries of extremities with rest pain, right [...] of right lower extremity (I70.221: Atherosclerosis of grand [place] tribes arteries of extremities with rest pain, right [...] to ensure accuracy , however, inadvertently computerized it service manager mistakes may be present . Extracted from: Title:Progress Note * Author:Chong Coe M.D Date:03/04/23 Impression and Plan Diagnosis: Diagnosis: left groin wound fem pop infection partially treated already with 3 weeks of IV dapto/cefepime. . Orders Patient has been treated for a left groin wound postop vascular infection. Antibiotics were initially started after the infection was diagnosed at [facility]. Culture reportedly was negative per the . [...] of right lower extremity (I70.221: Atherosclerosis of grand [place] tribes arteries of extremities with rest pain, right [...] of right lower extremity (I70.221: Atherosclerosis of [place] tribes arteries of extremities with rest pain, right [...] to ensure accuracy , however, inadvertently computerized it service manager mistakes may be present . Extracted from: Title:ANELiseth Post-operative Note---General Author: MD Horner Ahmad F Date:03/03/23 Plan Transfer/Discharge: Transfer/Discharge Discharge when meets criteria ( To home ). Extracted from: Title:LIZZTETE Pre-anesthesia - Adult 19 Author:Marianne torres MD, Ahmad F Date:03/03/23 Plan [place] [employer] Anesthesiologists (ASA) physical status classification: [...] of right lower extremity (I70.221: Atherosclerosis of grand [place] tribes arteries of extremities with rest pain, right [...] the as cultures apparently were done in [place]. Extracted from: Title:APSO Note Author:Shayy BALLESTEROS MD [...] 21 days, picc line in place Ordered: [facility] Care/Day High 50 Minutes 10603 2. Critical limb ischemia of right lower extremity (I70.221: Atherosclerosis of [place] tribes arteries of extremities with rest pain, right [...] of right lower extremity (I70.221: Atherosclerosis of grand [place] tribes arteries of extremities with rest pain, right [...] of right lower extremity (I70.221: Atherosclerosis of grand [place] tribes arteries of extremities with rest pain, right [...] health Discharged to - Home with family jail Discharge Diet(s): Calorie Controlled- 1800 Calorie Diet [...] Oral, Supper nystatin 100,000 units/mL Oral Susp, [id number] unit(s)= 15 mL, Oral, QIDACHS Verquvo 10 mg oral tablet, 10 mg= 1 tab(s), Oral, Daily With When Contact Information LUCILLE TIAGOJOHANA In 3 days 02/28/2023 EDT [address] [place] [address] Business (1) Additional Instructions: The office is closed on Fridays. Please contact your PCP on Tuesday, February 28 for an appointment. Thank you! Diabetes Mellitus and Nutrition, Adult Diabetes Mellitus and Foot Care Wound Infection, Jjjt-wo-Ykvj Discharge time >30 min Extracted from: Title:Infection Admission H&P * Author:Chong Coe M.D Date:02/25/23 Impression and Plan Diagnosis left groin wound fem pop infection partially treated already with 3 weeks of IV dapto/cefepime . Orders Patient's initial debridement on his left groin wound was done at [facility]. These records are not available for [...] Vital Signs Weight Extracted from: Title:ED Note Author:Luz WISE, Kwasi Date: 1. Lower extremity arterial insufficiency, severe, [...] Future Appointments Appointment Date:03/17/2023 01:00:00 PM Scheduled Provider:Vickey WISE, Erwin Evans Location:[facility] Appointment Type:Vascular Follow Up (FT) Diagnostic Tests Pending * Urine Culture 03/10/23 Future Scheduled Tests Radiology* US Aorta, IVC, Iliac Duplex 04/08/23 * US PVR Lower EXT Complete Bilat 04/08/23 * CV Cardiovascular 02/15/23 [facility]Result Comment: Electronically Signed By: Serena FINNEGAN\.br\Date and Time Signed: 03/10/23 10:50 EDT\.br\Electronically Co-Signed By: Vazquez WISE, [place]\.br\Date and Time Co-Signed: 03/10/23 11:19 EDT 02-25-[address] John Medical CenterComment on above:Result Comment: Electronically Signed By: NEVAEH WISE, Ramos\.br\Date and Time Signed: 02/25/23 11:[id number] Hospital Discharge instructions Patient Education 02/25/2023 11:06:33 [...] Carrots. Green beans. Tomatoes. Peppers. Onions. Cucumbers. [place] sprouts. Grains Whole grains, such as whole-wheat [...] meet with a certified diabetes care and business education teacher? Do I need to meet with a dietitian? What number can I call if I have questions? When are the best times to check my blood glucose? Where to find more information: [place] [employer] Association: diabetes.org Academy of Nutrition and Dietetics: eatright.org National [place] of Diabetes and Digestive and Kidney Diseases: [...] provider. Document Revised: 04/29/2021 Document Reviewed: 04/29/2021 Free Flow Power Patient Education 2022 [facility]. 02/25/2023 11:06:31 Diabetes Mellitus and Foot Care Diabetes Mellitus and Foot Care Foot care is an important part of your health, especially when you have diabetes. Diabetes may cause you to have problems because of poor blood flow (circulation) to your feet and legs, which can cause your skin to: Become thinner and drier and pulverizer tender. Break more easily. Heal more slowly. [...] provider immediately. Where to find more information [place] [employer] Association: www.diabetes.org Association of Diabetes Care [...] provider. Document Revised: 04/16/2021 Document Reviewed: 04/16/2021 Free Flow Power Patient Education 2022 [facility]. 02/25/2023 11:06:09 Wound Infection, Hzjj-sd-Cyav Wound Infection A wound infection happens when [...] instructions at home: Medicines Take or apply xvos-kpj-qunthvl and prescription medicines only as told by [...] cannot use soap and water, use hand procurement analyst. ?Change your bandage as told by your [...] provider. Document Revised: 07/22/2022 Document Reviewed: 07/22/2022 Free Flow Power Patient Education 2022 [facility]. Follow Up Care 02/23/2023 10:43:07 With:Chong Coe Address: [address] [place] [address]- Business (1) When:7 to 10 days With:Erwin Hurd Address: [address] [place] [address]- Business (1) When:5 to 7 days With:Andrea Lomax MD, NEU Address: [address] [place] [address]- When:2 to 4 weeks With:LUCILLE HORTA Address: [address] [address] Business (1) When:02/28/2023 Comments:The office is closed on Fridays. Please contact your PCP on February 28 for an appointment. Thank you! [facility]05-17-[address] [facility] on [facility]:Result Comment: Electronically Signed By: NEVAEH WISE, Ramos\.br\Date and Time Signed: 02/23/23 16:[id number] Evaluation + Plan noteExtracted from: Title:ED Note Author:Brennon Cruz DO Date:02/15 Anemia (D64.9: Anemia, unspe cified) Decubitus [...] 02/15/23 12:39:00 EDT phenylephrine nasal, 2 spray(s), Bon Aqua, Nasal, Once, Stop date 02/15/23 12:42:00 EDT, [...] Date:02/24/2023 03:00:00 PM Scheduled Provider:Erwin Hurd MD Location:[facility] Appointment Type:Vascular Follow Up (FT) Future Scheduled Tests Radiology* US Aorta, IVC, Iliac Duplex 04/08/23 * US PVR Lower EXT Complete Bilat 04/08/23 * CV Cardiovascular 02/15/23 [facility]05-09-2023 Evaluation + Plan note Future Scheduled Tests Radiology* CV Cardiovascular 02/15/23 [facility]05-09-2023 Hospital Discharge instructions Follow Up Care 02/15/2023 11:01:41 With:Vinita Delgadillo Address:Unknown When:02/18/2023 16:48:28 With:Erwin Hurd Address: [address] [place] [address]- Business (1) When:02/18/2023 16:48:12 With:LUCILLE HORTA Address: [address] [place] [address] Business (1) When:Within 3 Day(s) [facility]04[facility]27-2023 [facility]-2023 [facility]Bl[facility]04-27-2023 [facility]Bl[facility] 02-02-2023 [facility]Bl[facility]04-26-2023 [facility]Bl[facility]04-[facility]-2023 [facility] 02-02-2023 [facility]Bl[facility]04-26-2023 [facility]Bl[facility]04-26-2023 [facility]Bl[facility] 02-02-2023 [facility]Bl[facility]04-25-2023 NoteOccupational Therapy Pt is unable to be seen for therapy at this time secondary to Refused. Will continue to check back as appropriate. Time attempted: 1500Un[facility]04-[facility]-2023 Note Occupational Therapy Pt is unable to be seen for therapy at this time secondary to Refused due to N&V, nsg aware. Will continue to check back as appropriate. Time attempted: 1012Un[facility]04-25-2023 NotePhysical Therapy RN agreeable to pt participation as long as pt is agreeable. Pt is unable to be seen for therapy at this time secondary to Refused, RN informed.Will continue to check back as appropriate. Time attempted: 957Un[facility]04-25-2023 [facility]Bl[facility]04-[facility]-2023 [facility] 01-31-2023 [facility]Bl[facility]04-24-2023 NoteBl[facility]04-24-2023 [facility]Bl[facility] 01-31-2023 NoteBl[facility]04-24-2023 NotePhysical Therapy Hbg 7.2 this AM - currently pending 2 units RBC's. Will defer evaluation this morning and attempt back in PM as able. Júnior Espinoza PT, DPTUnGood Samaritan Hospital04-24-2023 NoteBl[facility]04-24-2023 [facility]Bl[facility] 01-31-2023 NoteBl[facility]04-23-2023 NoteBl[facility]04-22-2023 NoteINSERTED WITHOUT COMPLICATION USING STERILE TECHNIQUE; DRAINING CLEAR YELLOW URINE; TO BE MONITORED AND MAINTAINED BY ANESTHESIA FOR DURATION OF THE CASE [facility]04-22-2023 NoteBl[facility] System04-22-2023 NoteBl[facility]04-22-2023 Note PROCEDURE: XR HIP RT 2 3V W PELVIS COMPARISON: None. HISTORY: Pain in right hip joint FINDINGS: BONES:No acute fracture or dislocation. Moderate degenerative spondylosis of the spine. Moderate bilateral hip osteoarthropathy with joint space narrowing SOFT TISSUES:Negative. No visible soft tissue swelling. EFFUSION:None visible. OTHER: Vascular calcifications with vascular stents IMPRESSION: Moderate degenerative changes Electronically authenticated by: MARIO CULLEN Date: 2023-01-29 14:17[facility]03-07-2023 NoteBl[facility]03-02-2023 Note [id number]:[id number] 12-03-2022 [facility] 12-03-2022 [facility]-2023 NoteR groin wound measurements on 12/02/22 as follows: 5x3x3 cm Patient to be discharged today with NPWT to right groin wound.[facility]02[facility]24[facility]23 [facility]2022 [facility]2023 [facility]23 [facility] 12-02-2022 [facility]2023 [facility]-2023 [facility] 12-01-2022 [facility]-2023 [facility]-2023 [facility] 11-29-2022 [facility]Bl[facility]-20-2023 [facility]Bl[facility]-2023 [facility] 11-16-2022 NotePt is being Dc'd. PT/OT recommends home independent. Aurelio Guzman RN, she will teach pt's dressing changes. No other needs identified.[facility]02-07-2023 [facility] 11-16-2022 [facility]Bl[facility]02-07-2023 [facility]Bl[facility]02-06-2023 [facility] 11-15-2022 [facility]Bl[facility]-06-2023 NoteBl[facility]-05-2023 [facility] 11-14-2022 NoteBl[facility]02-05-2023 NoteBl[facility]02-04-2023 [facility] 11-13-2022 [facility]Bl[facility]01-31-2023 [facility]Bl[facility]01-31-2023 [facility] 11-09-2022 [facility]Bl[facility]01-30-2023 NoteBl[facility]01-30-2023 [facility]Bl[facility] 11-08-2022 [facility]Bl[facility]01-30-2023 [facility]Bl[facility]01-30-2023 [facility] 11-07-2022 NoteBl[facility]01-29-2023 NoteBl[facility]01-29-2023 [facility]Bl[facility] 11-06-2022 NoteBl[facility]01-27-2023 [facility]Bl[facility]01-27-2023 [facility]Bl[facility] 11-05-2022 [facility]Bl[facility]01-26-2023 NoteSW attempted to see patient 2 times this afternoon. Each time medical providers were in the room and patient was not available. SW to attempt assessment at a later time.[facility]01-26-2023 Note [facility]01-26-2023 [facility]Un[facility]01-25-2023 [facility]Bl[facility]01-25-2023 Note [facility] Future Appointments Appointment Date:12/02/2022 08:45:00 AM Scheduled Provider:Brennon Alvarado MD [facility]ments Appointment Date:12/23/2022 02:30:00 PM Scheduled Provider:Erwin Hurd MD Location[facility] Appointment Type[facility] ([facility] Future Scheduled Tests Radiology* US Aorta, IVC, Iliac Duplex 04/08/23 * US PVR Lower EXT Complete Bilat 04/08/23 [facility] Future Appointments Appointment Date:02/17/2023 10:30:00 AM Scheduled Provider:Erwin Hurd MD Location[facility] Appointment Type:Vascular Follow Up (FT) Future Scheduled Tests Radiology* US Aorta, IVC, Iliac Duplex 04/08/23 * US PVR Lower EXT Complete Bilat 04/08/23 * CV Cardiovascular 02[facility]15[facility]23 [facility] Future Appointments Appointment Date:03/17/2023 01:00:00 PM Scheduled Provider:Erwin Hurd MD Location[facility] Appointment Type:Vascular Follow Up (FT) Future Scheduled Tests Radiology* US Aorta, IVC, Iliac Duplex 04/08/23 * US PVR Lower EXT Complete Bilat 04/08/23 * CV Cardiovascular 02[facility]15[facility]23 [facility] Future Appointments Appointment Date:04/13/2023 09:00:00 AM Scheduled Provider: [facility] App[facility] Type:US Duplex Procedures (FT) Diagnostic Tests Pending * Path. Review 04/04/23 Future Scheduled Tests Radiology* US Aorta, IVC, Iliac Duplex 04/13/23 * US PVR Lower EXT Complete Bilat 04/13/23 * CV Cardiovascular [facility] Future Appointments Appointment Date:04/11/2023 12:30:00 PM Scheduled Provider: Location[facility] Appointment Type:Surgery FT Future Scheduled Tests Radiology* CV Cardiovascular 02/15/23 [facility] noteNo InformationNortV[facility] [employer] Other History general Narrative - Reported* Type Description Date Medical History type II diabetes Medical History PAD Surgical History cholcystecomy Surgical History appendectomy Surgical History open heart surgery Surgical History femoral bypass Surgical History right leg amputation [facility] [employer] Other Hospital course Narrative No data available for this section [facility] No data available for this section [facility] No data available for this section [facility] Purpose Family History No Family History [...] and content) DATE CREATED AUTHOR 04/29/2022 [facility] DATE CREATED AUTHOR AUTHOR'S ORGANIZ ATION 01/30/2023 [facility] [employer] [facility] DATE CREATED AUTHOR AUTHOR'S ORGANIZ ATION 02/10/[address] [facility] DATE CREATED AUTHOR AUTHOR'S ORGANIZ ATION 07/22/2023 [facility] DATE CREATED AUTHOR AUTHOR'S ORGANIZ ATION 09/07/2023 [facility] DATE CREATED AUTHOR AUTHOR'S ORGANIZ ATION 10/07/2023 [facility] Patient Care team informatio n (unrecognized section and content) Personnel Name: LUCILLE HORTA JR, DO Address: Address: [address] [place] [address] Personnel Name: LUCILLE HORTA JR, DO Address: Address: [address] [place], [place] [phone] Personnel Name: LUCILLE HORTA JR, DO Address: Address: [address] [place] [id number] Personnel Name: LUCILLE HORTA JR, DO Address: Address: [address] [place], [place] [phone] Personnel Name: LUCILLE HORTA JR, DO Address: Address: [address] [place] [id number] Personnel Name: LUCILLE HORTA JR, DO Address: Address: [address] [place], [place] [id number] Personnel Name: LUCILLE HORTA JR, DO Address: Address: [address] [place] [address] Personnel Name: LUCILLE HORTA JR, DO Address: Address: [address] [place], [place] [phone] Personnel Name: LUCILLE HORTA JR, DO Address: Address: [address] [place], [place] [id number] Personnel Name: LUCILLE HORTA JR, DO Address: Address: [address] [place], [place] [id number] Personnel Name: LUCILLE HORTA JR, DO Address: Address: [address] [place], [place] [id number] Personnel Name: LUCILLE HORTA JR, DO Address: Address: [address] [place], [place] [id number] [place] Name: Swathi Panda LPNon Kemal Personnel Name: LUCILLE HORTA JR, DO Address: Address: [address] [place], [place] [id number] [place] Name: Farzad ORTIZ Emma J Personnel Name: LUCILLE HORTA JR, DO Address: Address: [address] [place], [place] [phone] [place] Name: Farzad ORTIZ Emma J Personnel Name: LUCILLE HORTA JR, DO Address: Address: [address] [place], [place] [id number] [place] Name: Farzad ORTIZ Emma Kemal Personnel Name: LUCILLE HORTA JR, DO Address: Address: [address] [place], [place] [phone] [place] Name: Farzad ORTIZ Emma Kemal REASON FOR VISIT (unrecogniz ed section and content) REF NIRAJ Perdomo AKA [facility] ETIC EVAL.script niraj FOR RECORDS PERTAINING TO [...] BE BASED ON THE PRIMARY CLINICAL RECORDS. [facility] [employer] [facility]. provides no warranty or guarantee of the accuracy or completeness of information in this document.
--- NOTE | 2023-10-07 11:25 | PC.NURSE ---
patient was seen here yesterday for low Hgb called in by patients home health nurse. patient was explained to him that Dr landon would write orders for an outpatient blood transfusion after a CBC was drawn and evaluated by . patient did not want to waiit and left. Came back in today to finish what was started yesterday.
--- NOTE | 2023-10-07 11:26 | ED_ITS ---
HPI - Recheck/Abnormal Lab/Rx General Chief Complaint: Recheck/Abnormal Lab/Rx Stated Complaint: ABNORMAL LAB VALUE Time Seen by Provider: 10/07/23 11:22 Source: patient and family Mode of arrival: Wheelchair Limitations: no limitations History of Present Illness HPI narrative: patient was here requesting blood transfusions. Normally he would go to the infusion center but his physician is not on staff here and he needs a primary care physician to order that blood transfusion. He was here yesterday and because extremely busy emergency room did not have blood drawn yesterday. On September 18 was his last tried blood draw at this facility his hemoglobin is 7.8. He studies had outpatient blood draw since that time with a hemoglobin reported at 6.7 and trying to confirm this. At this time is agreed to have blood drawn today at this facility right now so we can evaluate the need for the transfusion. Clinically is stable and really does not have any complaints. Related Data Home Medications Medication Instructions Recorded Confirmed digoxin 125 mcg (0.125 mg) tablet 125 mcg PO DAILY 07/16/23 09/18/23 (Digox) ezetimibe 10 mg tablet 5 mg PO DAILY 07/16/23 07/16/23 metformin 500 mg tablet 500 mg PO BID 07/16/23 09/18/23 montelukast 10 mg tablet 10 mg PO DAILY 07/16/23 09/18/23 (Singulair) rosuvastatin 40 mg tablet 40 mg PO DAILY 07/16/23 09/18/23 vericiguat 10 mg tablet (Verquvo) 10 mg PO DAILY 07/16/23 09/18/23 apixaban 5 mg (74 tabs) tablets in 5 mg PO Q12H 09/18/23 09/18/23 a dose pack (Eliquis DVT-PE Treat 30D Start) aspirin 81 mg capsule 81 mg PO DAILY 09/18/23 09/18/23 biotin 10,000 mcg capsule mcg PO BID 09/18/23 cilostazol 100 mg tablet 100 mg PO BID 09/18/23 09/18/23 doxycycline hyclate 100 mg capsule 100 mg PO Q12H 09/18/23 09/18/23 famotidine 40 mg tablet 40 mg PO Q12H 09/18/23 09/18/23 ferrous sulfate 325 mg (65 mg 325 mg PO DAILY 09/18/23 09/18/23 iron) tablet (Feosol) gabapentin 600 mg tablet 600 mg PO Q12H 09/18/23 09/18/23 (Neurontin) metronidazole 250 mg tablet 250 mg PO Q12H 09/18/23 09/18/23 ondansetron HCl 4 mg tablet 4 mg PO Q6H PRN nausea and vomiting 09/18/23 09/18/23 Allergies Allergy/AdvReac Type Severity Reaction Status Date / Time iodine AdvReac Severe Vomiting Verified 09/18/23 00:04 promethazine [From Phenergan] AdvReac Severe Hallucinati Verified 09/18/23 00:04 ng shellfish derived AdvReac Severe Vomiting Verified 09/18/23 00:04 codeine AdvReac Intermediate Vomiting Verified 09/18/23 00:04 [facility] Medical History (Updated 10/07/23 @ 12:16 by Deshaun Painter MD) Paroxysmal atrial fibrillation ?I48.0 - Paroxysmal atrial fibrillation (ICD-10) CAD (coronary artery disease) ?I25.10 - Atherosclerotic heart disease of [place] coronary artery without angina pectoris (ICD-10) Benign essential hypertension ?I10 - Essential (primary) hypertension (ICD-10) COPD (chronic obstructive pulmonary disease) ?J44.9 - Chronic obstructive pulmonary disease, unspecified (ICD-10) Peripheral artery disease ?I73.9 - Peripheral vascular disease, unspecified (ICD-10) Complaint of melena ?K92.1 - Melena (ICD-10) FH: CABG (coronary artery bypass surgery) ?Z82.49 - Family history of ischemic heart disease and other diseases of the circulatory system (ICD-10) Diabetes ?E11.9 - Type 2 diabetes mellitus without complications (ICD-10) Femoral-popliteal bypass graft occlusion, right ?T82.898A - Other specified complication of vascular prosthetic devices, implants and grafts, initial encounter (ICD-10) Femoral-popliteal bypass graft occlusion, left ?T82.898A - Other specified complication of vascular prosthetic devices, implants and grafts, initial encounter (ICD-10) Anemia requiring transfusions ?D64.9 - Anemia, unspecified (ICD-10) Clot ?I82.90 - Acute embolism and thrombosis of unspecified vein (ICD-10) Amputation above knee ?S78.119A - Complete traumatic amputation at level between unspecified hip and knee, initial encounter (ICD-10) Family History Father Family history of diabetes mellitus Social History Within the past year, how often did you have a drink containing alcohol: never Score interpretation: A score less than 4 is consistent with normal alcohol consumption. 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 He is afebrile. Pulse ox is one hundred percent on room air there is no respiratory distress. Skin is warm and dry there is no pallor. There is no cyanosis or diaphoresis. He has no respiratory distress. His pulse is regular to palpation. Constitutional Vital Signs, click to edit/add: Last Vital Signs Temp 98.5 F 10/07/23 10:58 Pulse 110 H 10/07/23 10:58 Resp 18 10/07/23 10:58 BP 129/98 H 10/07/23 10:58 Pulse Ox 100 10/07/23 10:58 O2 Del Method Room Air 10/07/23 10:58 Course Vital Signs Vital signs: Vital Signs Temperature 98.5 F 10/07/23 10:58 Pulse Rate 110 H 10/07/23 10:58 Respiratory Rate 18 10/07/23 10:58 Blood Pressure 129/98 H 10/07/23 10:58 Pulse Oximetry 100 10/07/23 10:58 Oxygen Delivery Method Room Air 10/07/23 10:58 Temperature 98.5 F 10/07/23 10:58 Pulse Rate 110 H 10/07/23 10:58 Respiratory Rate 18 10/07/23 10:58 Blood Pressure 129/98 H 10/07/23 10:58 Pulse Oximetry 100 10/07/23 10:58 Oxygen Delivery Method Room Air 10/07/23 10:58 MDM - Recheck/Abnormal Lab/Rx MDM Narrative Medical decision making narrative: a repeat CBC was done and is noted. At this stage he does not need a transfusion. It is slowly going downward but he does have a standing order for CBCs every Tuesday. I tried contacting his primary care doctor for alone but he is not available at this time. Again at this stage he does not need a transfusion but he should follow-up with his primary care doctor who can order further diagnostics as needed, incidentally, he does not have any blood loss at this time. Discharge Plan Discharge Chief Complaint: Recheck/Abnormal Lab/Rx Clinical Impression: Anemia Patient Disposition: Home, Self-Care Time of Disposition Decision: 12:15 Prescriptions / Home Meds: No Action rosuvastatin 40 mg tablet 40 mg PO DAILY ezetimibe 10 mg tablet 5 mg PO DAILY montelukast [Singulair] 10 mg tablet 10 mg PO DAILY metformin 500 mg tablet 500 mg PO BID digoxin [Digox] 125 mcg (0.125 mg) tablet 125 mcg PO DAILY Verquvo 10 mg tablet 10 mg PO DAILY Rx Instructions: must administer with a meal/food Eliquis DVT-PE Treat 30D Start 5 mg (74 tabs) tablets,dose pack 5 mg PO Q12H cilostazol 100 mg tablet 100 mg PO BID doxycycline hyclate 100 mg capsule 100 mg PO Q12H famotidine 40 mg tablet 40 mg PO Q12H metronidazole 250 mg tablet 250 mg PO Q12H ondansetron HCl 4 mg tablet 4 mg PO Q6H PRN (Reason: nausea and vomiting) biotin 10,000 mcg capsule PO BID aspirin 81 mg capsule 81 mg PO DAILY ferrous sulfate [Feosol] 325 mg (65 mg iron) tablet 325 mg PO DAILY gabapentin [Neurontin] 600 mg tablet 600 mg PO Q12H Additional Instructions: follow-up with her family doctor, take a copy of your lab results today. Stand Alone Forms: Portal Instructions Referrals: LUCILLE HORTA MD [Primary Care Provider] - 1 week
[2023-10-07 11:42] LABS: Basophils Percent Auto 0.3 % (0.2-2.0); Hematocrit 24.4 % (42.0-54.0); Hemoglobin 7.3 g/dL (14.0-18.0); Immature Granulocytes Abs Auto 0.01 10^3/uL (0.00-0.03); Immature Granulocytes Pct Auto 0.3 % (0.0-0.5); Lymphocytes Absolute Auto 0.2 10^3/uL (1.2-3.8); Lymphocytes Percent Auto 6.7 % (20.5-60.0); Mean Corpuscular HGB Conc 29.9 g/dL (29.9-35.2); Mean Corpuscular Hemoglobin 27.4 pg (25.9-34.0); Mean Corpuscular Volume 91.7 fL (80.0-94.0); Mean Platelet Volume 12.3 fL (9.5-13.5); Monocytes Absolute Auto 0.4 10^3/uL (0.3-0.8); Monocytes Percent Auto 11.7 % (1.7-12.0); Neutrophils Absolute Auto 2.4 10^3/uL (1.4-6.5); Platelet Count 143 10^3/uL (150-450); Red Blood Count 2.66 10^6/uL (4.70-6.10); Red Cell Distribution Width 17.4 % (11.0-15.0)
== END 2023-10-07 12:38 | disposition home or self-care (01) ==
PROVIDERS: Emergency Provider Emergency Medicine Emergency Medical Services; PCP Internal Medicine
DX: D64.9 Anemia, unspecified (principal); Z79.84 Long term (current) use of oral hypoglycemic drugs; Z79.82 Long term (current) use of aspirin; Z79.899 Other long term (current) drug therapy; I48.0 Paroxysmal atrial fibrillation; I25.10 Atherosclerotic heart disease of native coronary artery without angina pectoris; I10 Essential (primary) hypertension; J44.9 Chronic obstructive pulmonary disease, unspecified; I73.9 Peripheral vascular disease, unspecified; E11.9 Type 2 diabetes mellitus without complications; Z86.718 Personal history of other venous thrombosis and embolism; Z89.619 Acquired absence of unspecified leg above knee; Z87.891 Personal history of nicotine dependence; Z79.01 Long term (current) use of anticoagulants
CPT/HCPCS: 36415; 85025; 99283

== ENCOUNTER 2023-12-07 11:16 | Outpatient (OUT) | payer MEDICARE, SELFPAY ==
[2023-12-07 11:43] LABS: Mean Corpuscular HGB Conc 29.7 g/dL (29.9-35.2); Mean Corpuscular Hemoglobin 26.8 pg (25.9-34.0); Mean Corpuscular Volume 90.2 fL (80.0-94.0); Mean Platelet Volume 11.6 fL (9.5-13.5); Platelet Count 135 10^3/uL (150-450); Red Blood Count 2.54 10^6/uL (4.70-6.10); Red Cell Distribution Width 19.5 % (11.0-15.0); White Blood Count 6.9 10^3/uL (4.0-11.0)
[2023-12-07 12:25] LABS: Prothrombin Time 12.6 sec (9.0-11.6)
[2023-12-07 13:14] LABS: Alanine Aminotransferase 29 U/L (16-63); Albumin Globulin Ratio 0.3; Albumin Level 1.8 g/dL (3.4-5.0); Alkaline Phosphatase 135 U/L (46-116); Anion Gap 9.4; Aspartate Amino Transferase 24 U/L (15-37); BUN Creatinine Ratio 23.9; Bilirubin Direct 0.2 mg/dL (0.0-0.2); Bilirubin Total 0.3 mg/dL (0.2-1.0); Calcium 8.2 mg/dL (8.5-10.1); Carbon Dioxide 28.5 mmol/L (21.0-32.0); Chloride 98 mmol/L (98-107); Estimated GFR (African America >60 (>=60); Estimated GFR (Non-African Ame >60 (>=60); Globulin 5.5 g/dL; Glucose 199 mg/dL (74-106); Potassium 3.9 mmol/L (3.5-5.1); Sodium 132 mmol/L (136-145); Total Protein 7.3 g/dL (6.4-8.2)
[2023-12-07 13:26] LABS: Hematocrit 22.9 % (42.0-54.0); Hemoglobin 6.8 g/dL (14.0-18.0)
[2023-12-07 13:27] LABS: Eosinophils Absolute Manual 0.06 10^3/uL (0.00-0.70); Hypochromasia 1+; Lymphocytes Absolute Manual 0.13 10^3/uL (1.20-3.80); Monocytes Absolute Manual 0.13 10^3/uL (0.30-0.80); Segmented Neut Absolute Manual 6.55 10^3/uL (1.4-6.5)
== END 2023-12-07 11:17 | disposition home or self-care (01) ==
LOC: LAB 11:16
PROVIDERS: PCP Internal Medicine
DX: R79.89 Other specified abnormal findings of blood chemistry (principal); R94.5 Abnormal results of liver function studies
CPT/HCPCS: 36415; 80053; 81596; 82248; 85007; 85027; 85610

== ENCOUNTER 2023-12-08 12:38 | Observation (INO) | payer MEDICARE, SELFPAY ==
[2023-12-08] VITALS (16 sets, daily range): BP systolic 93–143; BP diastolic 45–75; PULSE 80–129; RESP 16–18; TEMP 36.6–37.1; O2SAT 97–100; BMI 18.1
--- NOTE | 2023-12-08 13:02 | ED_ITS ---
HPI - General Adult General Chief complaint: Recheck/Abnormal Lab/Rx Stated complaint: dizzy Time Seen by Provider: 12/08/23 12:53 Source: patient Mode of arrival: ambulance Limitations: no limitations History of Present Illness HPI narrative: This patient was told by his primary care doctor, Dr. Gian Jones, to go to the emergency room to get blood transfusions. He has had at least 3 previous transfusions before. He is a pretty good historian, he states that he has had both upper and lower endoscopy and they cannot find out where he is losing blood. He said one of the stomach doctors told him he would need the camera test to find out where he is bleeding. He does not have any shortness of breath or chest pain. He said typically they would send him in to get blood transfusion at the outpatient transfusion center but his doctor was not able to get that order completed. He has not had any new complaints. He receives most of his medical care at the [facility]. He is somewhat of a vasculopath. He has had 2 coronary bypass grafts he has had multiple amputations of his lower extremities and multiple vascular graft procedures over the years. Again he denies any recent change in his symptomatology. Related Data Home Medications Medication Instructions Recorded Confirmed digoxin 125 mcg (0.125 mg) tablet 125 mcg PO DAILY 07/16/23 09/18/23 (Digox) ezetimibe 10 mg tablet 5 mg PO DAILY 07/16/23 07/16/23 metformin 500 mg tablet 500 mg PO BID 07/16/23 09/18/23 montelukast 10 mg tablet 10 mg PO DAILY 07/16/23 09/18/23 (Singulair) rosuvastatin 40 mg tablet 40 mg PO DAILY 07/16/23 09/18/23 vericiguat 10 mg tablet (Verquvo) 10 mg PO DAILY 07/16/23 09/18/23 apixaban 5 mg (74 tabs) tablets in 5 mg PO Q12H 09/18/23 09/18/23 a dose pack (Eliquis DVT-PE Treat 30D Start) aspirin 81 mg capsule 81 mg PO DAILY 09/18/23 09/18/23 biotin 10,000 mcg capsule mcg PO BID 09/18/23 cilostazol 100 mg tablet 100 mg PO BID 09/18/23 09/18/23 doxycycline hyclate 100 mg capsule 100 mg PO Q12H 09/18/23 09/18/23 famotidine 40 mg tablet 40 mg PO Q12H 09/18/23 09/18/23 ferrous sulfate 325 mg (65 mg 325 mg PO DAILY 09/18/23 09/18/23 iron) tablet (Feosol) gabapentin 600 mg tablet 600 mg PO Q12H 09/18/23 09/18/23 (Neurontin) metronidazole 250 mg tablet 250 mg PO Q12H 09/18/23 09/18/23 ondansetron HCl 4 mg tablet 4 mg PO Q6H PRN nausea and vomiting 09/18/23 09/18/23 Allergies Allergy/AdvReac Type Severity Reaction Status Date / Time iodine AdvReac Severe Vomiting Verified 12/08/23 12:42 promethazine [From Phenergan] AdvReac Severe Hallucinati Verified 12/08/23 12:42 ng shellfish derived AdvReac Severe Vomiting Verified 12/08/23 12:42 codeine AdvReac Intermediate Vomiting Verified 12/08/23 12[facility]42 [facility] History (Updated 12/08/23 @ 14:17 by Deshaun Painter MD) Paroxysmal atrial fibrillation ?I48.0 - Paroxysmal atrial fibrillation (ICD-10) CAD (coronary artery disease) ?I25.10 - Atherosclerotic heart disease of [place] coronary artery without angina pectoris (ICD-10) Benign essential hypertension ?I10 - Essential (primary) hypertension (ICD-10) COPD (chronic obstructive pulmonary disease) ?J44.9 - Chronic obstructive pulmonary disease, unspecified (ICD-10) Peripheral artery disease ?I73.9 - Peripheral vascular disease, unspecified (ICD-10) Complaint of melena ?K92.1 - Melena (ICD-10) FH: CABG (coronary artery bypass surgery) ?Z82.49 - Family history of ischemic heart disease and other diseases of the circulatory system (ICD-10) Diabetes ?E11.9 - Type 2 diabetes mellitus without complications (ICD-10) Femoral-popliteal bypass graft occlusion, right ?T82.898A - Other specified complication of vascular prosthetic devices, implants and grafts, initial encounter (ICD-10) Femoral-popliteal bypass graft occlusion, left ?T82.898A - Other specified complication of vascular prosthetic devices, implants and grafts, initial encounter (ICD-10) Anemia requiring transfusions ?D64.9 - Anemia, unspecified (ICD-10) Clot ?I82.90 - Acute embolism and thrombosis of unspecified vein (ICD-10) Amputation above knee ?S78.119A - Complete traumatic amputation at level between unspecified hip and knee, initial encounter (ICD-10) Family History Father Family history of diabetes mellitus Social History Within the past year, how often did you have a drink containing alcohol: never Score interpretation: A score less than 4 is consistent with normal alcohol consumption. 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 Double T. His vital signs are noted. His pulse is moderately elevated at 129. Constitutional he is awake alert oriented cognition is excellent GCS 15. His mucous membranes are somewhat pale. He has no respiratory distress. Lungs were clear with no wheeze rales or rhonchi. Should be noted that he quit smoking many years ago. Heart rate and rhythm are normal with exception of the tachycardia I do not hear any ectopy during auscultation. Abdomen is benign. Lower extremities he is amputee bilateral above the knee on the left and the right. He has previously used wound vacs but is not using them now at this time. Constitutional Vital Signs, click to edit/add: Last Vital Signs Temp 98.7 F 12/08/23 12:37 Pulse 129 H 12/08/23 12:37 Resp 18 12/08/23 12:37 BP 126/68 12/08/23 12:37 Pulse Ox 97 12/08/23 12:56 O2 Del Method Room Air 12/08/23 12:56 Course Vital Signs Vital signs: Vital Signs Temperature 98.7 F 12/08/23 12:37 Pulse Rate 129 H 12/08/23 12:37 Respiratory Rate 18 12/08/23 12:37 Blood Pressure 126/68 12/08/23 12:37 Pulse Oximetry 100 12/08/23 12:37 Oxygen Delivery Method Room Air 12/08/23 12:37 Temperature 98.7 F 12/08/23 12:37 Pulse Rate 129 H 12/08/23 12:37 Respiratory Rate 18 12/08/23 12:37 Blood Pressure 126/68 12/08/23 12:37 Pulse Oximetry 97 12/08/23 12:56 Oxygen Delivery Method Room Air 12/08/23 12:56 Medical Decision Making MDM Narrative Medical decision making narrative: This patient has a longstanding history of GI blood loss that they cannot specify after multiple endoscopies. He has been told that they need to do a camera endoscopy the next time. He was told by his doctor to come in for blood transfusions and because his blood his doctor does not have admitting privileges cannot order outpatient blood transfusions at the infusion center at this hospital. His hemoglobin is modestly improved from yesterday to up to 7.1 today. He does not have any other complaints. His INR is normal. I spoke with the on-call hospitalist and we will admit him and blood has been ordered to transfuse 2 units of packed red blood cells Lab Data Labs: Lab Results 12/08/23 Range/Units 12:00 WBC 7.1 (4.0-11.0) 10^3/uL RBC 2.71 L (4.70-6.10) 10^6/uL Hgb 7.1 L (14.0-18.0) g/dL Hct 24.5 L (42.0-54.0) % MCV 90.4 (80.0-94.0) fL MCH 26.2 (25.9-34.0) pg MCHC 29.0 L (29.9-35.2) g/dL RDW 19.6 H (11.0-15.0) % Plt Count 151 (150-450) 10^3/uL MPV 12.5 (9.5-13.5) fL Neut % (Auto) 84.7 H (43.0-75.0) % Lymph % (Auto) 5.3 L (20.5-60.0) % [place] % (Auto) 9.1 (1.7-12.0) % Eos % (Auto) 0.1 L (0.9-7.0) % Baso % (Auto) 0.4 (0.2-2.0) % Neut # (Auto) 6.0 (1.4-6.5) 10^3/uL Lymph # (Auto) 0.4 L (1.2-3.8) 10^3/uL [place] # (Auto) 0.7 (0.3-0.8) 10^3/uL Eos # (Auto) 0.0 (0.0-0.7) 10^3/uL Baso # (Auto) 0.0 (0.0-0.1) 10^3/uL Abs Immat Gran (auto) 0.03 (0.00-0.03) 10^3/uL Imm/Tot Granulo (auto) 0.4 (0.0-0.5) % PT 12.0 H (9.0-11.6) sec INR 1.14 Discharge Plan Discharge Chief Complaint: Recheck/Abnormal Lab/Rx Clinical Impression: GI bleed, Anemia Patient Disposition: Admitted as Observation Time of Disposition Decision: 14:16 Prescriptions / Home Meds: No Action rosuvastatin 40 mg tablet 40 mg PO DAILY ezetimibe 10 mg tablet 5 mg PO DAILY montelukast [Singulair] 10 mg tablet 10 mg PO DAILY metformin 500 mg tablet 500 mg PO BID digoxin [Digox] 125 mcg (0.125 mg) tablet 125 mcg PO DAILY Verquvo 10 mg tablet 10 mg PO DAILY Rx Instructions: must administer with a meal/food Eliquis DVT-PE Treat 30D Start 5 mg (74 tabs) tablets,dose pack 5 mg PO Q12H cilostazol 100 mg tablet 100 mg PO BID doxycycline hyclate 100 mg capsule 100 mg PO Q12H famotidine 40 mg tablet 40 mg PO Q12H metronidazole 250 mg tablet 250 mg PO Q12H ondansetron HCl 4 mg tablet 4 mg PO Q6H PRN (Reason: nausea and vomiting) biotin 10,000 mcg capsule PO BID aspirin 81 mg capsule 81 mg PO DAILY ferrous sulfate [Feosol] 325 mg (65 mg iron) tablet 325 mg PO DAILY gabapentin [Neurontin] 600 mg tablet 600 mg PO Q12H Referrals: GIAN HORTA MD [Primary Care Provider] - 1 week
[2023-12-08 13:15] LABS: Basophils Percent Auto 0.4 % (0.2-2.0); Eosinophils Percent Auto 0.1 % (0.9-7.0); Hematocrit 24.5 % (42.0-54.0); Hemoglobin 7.1 g/dL (14.0-18.0); Immature Granulocytes Abs Auto 0.03 10^3/uL (0.00-0.03); Immature Granulocytes Pct Auto 0.4 % (0.0-0.5); Lymphocytes Absolute Auto 0.4 10^3/uL (1.2-3.8); Lymphocytes Percent Auto 5.3 % (20.5-60.0); Mean Corpuscular Hemoglobin 26.2 pg (25.9-34.0); Mean Corpuscular Volume 90.4 fL (80.0-94.0); Mean Platelet Volume 12.5 fL (9.5-13.5); Monocytes Absolute Auto 0.7 10^3/uL (0.3-0.8); Monocytes Percent Auto 9.1 % (1.7-12.0); Neutrophils Percent Auto 84.7 % (43.0-75.0); Platelet Count 151 10^3/uL (150-450); Red Blood Count 2.71 10^6/uL (4.70-6.10); Red Cell Distribution Width 19.6 % (11.0-15.0); White Blood Count 7.1 10^3/uL (4.0-11.0)
[2023-12-08 13:20] LABS: INR 1.14
--- NOTE | 2023-12-08 14:54 | PC.NURSE ---
BLOOD WAS VERIFIED WITH Mary GALARZA RN
--- NOTE | 2023-12-08 14:58 | PM.HP ---
H&P: HPI History of Present Illness Chief complaint: dizzy, Anemia, GI Bleed Narrative: 77 y.o male with past medical history of PVD and prior stents and fem/pop bypass and left BKA and right AKA. On aspirin daily. History of afib after CABG in 1998 and on Eliquis. Reports history of anemia and prior hematology work up negative including bone marrow biopsy. Per ER has had work up at [facility], including EGD and colonoscopy and next step is capsule study also per patient. He comes to the ER today for a blood transfusion because his PCP was not able to order outpatient. He denies any new complaints other than weakness. NO chest pain, no shortness of breath or dizziness. Patient was typed and crossed for 2 units of blood and initial unit is currently running. He reports having about 3 previous transfusions all without issues. He is having some left limb pain and requests pain medication. He is a DNRCCA Review of Systems ROS Narrative ROS: a complete review of systems were reviewed with patient and are positive as below or listed in History of Chief Complaint. General: no fever, chills, night sweats Head: no headache, trauma, visual changes, nausea or vomiting Skin: no reported rashes, itching or sores Eyes: no blurriness of vision Ears: no reported hearing loss, vertigo, earache, or tinnitus Throat: no sore throat, hoarseness, swelling of neck, or tongue pain Heart: no chest pain Lungs: no shortness of breath or cough GI: no diarrhea or vomiting/nausea Urinary: no urinary urgency, frequency or pain Neuro: no numbness or tingling HEM: no bleeding issues or bruising ENDO: no thyroid problems Psych: no anxiety or depression PFSH PFSH Medical History Paroxysmal atrial fibrillation ?I48.0 - Paroxysmal atrial fibrillation (ICD-10) CAD (coronary artery disease) ?I25.10 - Atherosclerotic heart disease of [place] coronary artery without angina pectoris (ICD-10) Benign essential hypertension ?I10 - Essential (primary) hypertension (ICD-10) COPD (chronic obstructive pulmonary disease) ?J44.9 - Chronic obstructive pulmonary disease, unspecified (ICD-10) Peripheral artery disease ?I73.9 - Peripheral vascular disease, unspecified (ICD-10) Complaint of melena ?K92.1 - Melena (ICD-10) FH: CABG (coronary artery bypass surgery) ?Z82.49 - Family history of ischemic heart disease and other diseases of the circulatory system (ICD-10) Diabetes ?E11.9 - Type 2 diabetes mellitus without complications (ICD-10) Femoral-popliteal bypass graft occlusion, right ?T82.898A - Other specified complication of vascular prosthetic devices, implants and grafts, initial encounter (ICD-10) Femoral-popliteal bypass graft occlusion, left ?T82.898A - Other specified complication of vascular prosthetic devices, implants and grafts, initial encounter (ICD-10) Anemia requiring transfusions ?D64.9 - Anemia, unspecified (ICD-10) Clot ?I82.90 - Acute embolism and thrombosis of unspecified vein (ICD-10) Amputation above knee ?S78.119A - Complete traumatic amputation at level between unspecified hip and knee, initial encounter (ICD-10) Family History Father Family history of diabetes mellitus Social History Within the past year, how often did you have a drink containing alcohol: never Score interpretation: A score less than 4 is consistent with normal alcohol consumption. 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 Known occupational exposures/hazards: No Highest level of school completed/degree received: high school graduate Meds Home Medications and Allergies Home Medications Medication Instructions Recorded Confirmed Type digoxin 125 mcg (0.125 mg) tablet 125 mcg PO DAILY 07/16/23 12/08/23 History (Digox) metformin 500 mg tablet 500 mg PO DAILY 07/16/23 12/08/23 History rosuvastatin 40 mg tablet 20 mg PO DAILY 07/16/23 12/08/23 History vericiguat 10 mg tablet (Verquvo) 10 mg PO DAILY 07/16/23 12/08/23 History apixaban 5 mg (74 tabs) tablets in 5 mg PO Q12H 09/18/23 12/08/23 History a dose pack (Eliquis DVT-PE Treat 30D Start) aspirin 81 mg capsule 81 mg PO DAILY 09/18/23 12/08/23 History biotin 10,000 mcg capsule mcg PO BID 09/18/23 History cilostazol 100 mg tablet 100 mg PO BID 09/18/23 12/08/23 History famotidine 40 mg tablet 40 mg PO Q12H 09/18/23 12/08/23 History ferrous sulfate 325 mg (65 mg 325 mg PO DAILY 09/18/23 12/08/23 History iron) tablet (Feosol) acetaminophen 500 mg tablet 1,000 mg PO Q4H PRN pain 12/08/23 12/08/23 History Allergies Allergy/AdvReac Type Severity Reaction Status Date / Time iodine AdvReac Severe Vomiting Verified 12/08/23 12:42 promethazine [From Phenergan] AdvReac Severe Hallucinati Verified 12/08/23 12:42 ng shellfish derived AdvReac Severe Vomiting Verified 12/08/23 12:42 codeine AdvReac Intermediate Vomiting Verified 12/08/23 12:42 Exam Narrative Exam Narrative: General: Patient is alert, and oriented to person, place and time with normal affect, proper hygiene Skin: no visible rashes, or ulcers Head: atraumatic, acephalic Eyes: PERRLA, no nystagmus present, conjunctiva clear, no scleral icterus Ears: normal Tympanic Membrane, normal gross auditory acuity Nose: symmetric, no discharge, no maxillary or frontal sinus tenderness Mouth/Throat: no erythema, exudate, or tonsillar enlargement, normal dentition Neck: no masses palpated, normal thyroid, no JVD or audible carotid bruits Heart: Normal rate and rhythm, no murmurs/rubs/gallops Lungs: no audible wheezes, crackles and normal breath sounds all lung saucedo Abdomen: Normal audible bowel sounds, no distension, No palpable masses, no organomegaly, no rebound/guarding/ or rigidity Neuro: CN II-X grossly intact Constitutional Vital Signs, click to edit/add: Last Vital Signs Temp 98.6 F 12/08/23 14:44 Pulse 80 12/08/23 14:44 Resp 18 12/08/23 14:44 BP 105/53 12/08/23 14:44 Pulse Ox 97 12/08/23 12:56 O2 Del Method Room Air 12/08/23 12:56 Results Labs Labs: Short CBC 12/08/23 Range/Units 12:00 WBC 7.1 (4.0-11.0) 10^3/uL Hgb 7.1 L (14.0-18.0) g/dL Hct 24.5 L (42.0-54.0) % Plt Count 151 (150-450) 10^3/uL Assessment and Plan Assessment and Plan (1) Symptomatic anemia: Assessment and Plan: transfuse 2 units PRBC's, hold eliquis, recheck CBC at 2100 and morning labs. If blood counts stable will be discharged for close outpatient follow up for Capsule study. (2) Chronic gastrointestinal bleeding: Assessment and Plan: continue iron supplement and will place on IV protonix, hold Eliquis (3) Paroxysmal atrial fibrillation: Assessment and Plan: slight tachycardia but could also be due to anemia. continue home meds, hold eliquis (4) CAD (coronary artery disease): Assessment and Plan: continue rosuvastatin and hold aspirin, multiple vascular surgeries (5) Benign essential hypertension: Assessment and Plan: continue home meds (6) COPD (chronic obstructive pulmonary disease): Assessment and Plan: no acute exacerbation at this time. Plan Patient is a DNR CCA, updated form signed with patient and placed in chart Hold Eliquis for anemia Patient admitted to observation, patient's stay is not expected to cross 2 midnights
[2023-12-08] MEDS: HYDROCODONE/ACET 5-325 MG TABLET 1 TAB PO ×2 (16:02→20:22)
[2023-12-08 16:32] LABS: Glucometer 143 mg/dL (74-106)
[2023-12-08] MEDS: CILOSTAZOL 100 MG TABLET PO (18:36)
[2023-12-08] MEDS: GABAPENTIN 100 MG CAPSULE PO (18:43)
[2023-12-08] MEDS: PANTOPRAZOLE SODIUM 40 MG VIAL IV (20:22)
[2023-12-08 20:41] LABS: Glucometer 139 mg/dL (74-106)
[2023-12-08 21:24] LABS: Basophils Percent Auto 0.3 % (0.2-2.0); Eosinophils Percent Auto 0.5 % (0.9-7.0); Hemoglobin 8.3 g/dL (14.0-18.0); Immature Granulocytes Abs Auto 0.01 10^3/uL (0.00-0.03); Immature Granulocytes Pct Auto 0.2 % (0.0-0.5); Lymphocytes Absolute Auto 0.4 10^3/uL (1.2-3.8); Lymphocytes Percent Auto 6.5 % (20.5-60.0); Mean Corpuscular HGB Conc 30.7 g/dL (29.9-35.2); Mean Corpuscular Hemoglobin 27.3 pg (25.9-34.0); Mean Corpuscular Volume 88.8 fL (80.0-94.0); Mean Platelet Volume 12.4 fL (9.5-13.5); Monocytes Absolute Auto 0.7 10^3/uL (0.3-0.8); Monocytes Percent Auto 11.9 % (1.7-12.0); Neutrophils Absolute Auto 4.8 10^3/uL (1.4-6.5); Neutrophils Percent Auto 80.6 % (43.0-75.0); Platelet Count 119 10^3/uL (150-450); Red Blood Count 3.04 10^6/uL (4.70-6.10); Red Cell Distribution Width 17.7 % (11.0-15.0); White Blood Count 5.9 10^3/uL (4.0-11.0)
--- NOTE | 2023-12-08 22:00 | PC.NURSE ---
Patient requested bandaged changed to left below knee amputation. [place] are present. Skin around yue is black and necrotic in appearance. Pictures obtained. Telfa pad applied along with ABD pad for cushion and wrapped with Curlex. Patients groin is also red and irritated from incontinence. [place] Sal[place] ordered.
[2023-12-09] VITALS (9 sets, daily range): BP systolic 115–136; BP diastolic 60–62; PULSE 85–120; RESP 18–20; TEMP 36.4–36.6; O2SAT 94–98
[2023-12-09] MEDS: HYDROCODONE/ACET 5-325 MG TABLET 1 TAB PO ×4 (00:18→09:45)
[2023-12-09 05:02] LABS: Basophils Percent Auto 0.5 % (0.2-2.0); Eosinophils Percent Auto 0.5 % (0.9-7.0); Hematocrit 28.5 % (42.0-54.0); Hemoglobin 8.6 g/dL (14.0-18.0); Immature Granulocytes Abs Auto 0.03 10^3/uL (0.00-0.03); Immature Granulocytes Pct Auto 0.5 % (0.0-0.5); Lymphocytes Absolute Auto 0.5 10^3/uL (1.2-3.8); Lymphocytes Percent Auto 7.8 % (20.5-60.0); Mean Corpuscular HGB Conc 30.2 g/dL (29.9-35.2); Mean Corpuscular Hemoglobin 26.6 pg (25.9-34.0); Mean Corpuscular Volume 88.2 fL (80.0-94.0); Mean Platelet Volume 12.6 fL (9.5-13.5); Monocytes Absolute Auto 0.7 10^3/uL (0.3-0.8); Monocytes Percent Auto 10.1 % (1.7-12.0); Neutrophils Absolute Auto 5.3 10^3/uL (1.4-6.5); Neutrophils Percent Auto 80.6 % (43.0-75.0); Platelet Count 133 10^3/uL (150-450); Red Blood Count 3.23 10^6/uL (4.70-6.10); Red Cell Distribution Width 18.1 % (11.0-15.0); White Blood Count 6.5 10^3/uL (4.0-11.0)
[2023-12-09 05:34] LABS: Alanine Aminotransferase 23 U/L (16-63); Albumin Globulin Ratio 0.3; Albumin Level 1.8 g/dL (3.4-5.0); Alkaline Phosphatase 121 U/L (46-116); Anion Gap 8.8; Aspartate Amino Transferase 20 U/L (15-37); BUN Creatinine Ratio 25.5; Bilirubin Total 0.9 mg/dL (0.2-1.0); Calcium 8.3 mg/dL (8.5-10.1); Carbon Dioxide 27.1 mmol/L (21.0-32.0); Chloride 101 mmol/L (98-107); Estimated GFR (African America >60 (>=60); Estimated GFR (Non-African Ame >60 (>=60); Globulin 5.6 g/dL; Glucose 93 mg/dL (74-106); Potassium 3.9 mmol/L (3.5-5.1); Sodium 133 mmol/L (136-145); Total Protein 7.4 g/dL (6.4-8.2)
--- NOTE | 2023-12-09 08:31 | P.DS_ITS ---
DS: Providers Provider Date of admission: 12/08/23 15:04 Primary care physician: LUCILLE HORTA MD Admitting clinician: Sommer Lindo Discharging clinician: Sommer Lindo DS: Diagnosis Discharge Diagnosis (1) Symptomatic anemia: (2) Chronic gastrointestinal bleeding: (3) Paroxysmal atrial fibrillation: (4) CAD (coronary artery disease): (5) Benign essential hypertension: (6) COPD (chronic obstructive pulmonary disease): DS: Summary Hospital Course Hospital Course: Patient was admitted to observation for transfusion of 2 units PRBC's. He has received about 3 prior transfusions for chronic blood loss and unknown source. Patient has had 4 EGD's in the recent past and colonoscopies. He follows with a GI doctor at [facility]. He will have close follow up with him for Capsule study as planned outpatient. He will follow up with PCP next week for check of cbc. Discharge Hemoglobin is 8.3 today. No issues with transfusion last night, weakness has improved. Home today in stable condition, no active bleeding. Resume home medications. Return to the ER with any worsening conditions. Patient has Home Health nurse coming today. Status at Discharge Functional status at discharge: wheelchair bound Overall status at discharge: patient is back to baseline Time Spent with Patient Time attestation: Total time spent providing and/or coordinating discharge services: Time spent: less than 30 minutes Exam Narrative Exam Narrative: General: Patient is alert, and oriented to person, place and time with normal affect, proper hygiene Skin: no visible rashes, or ulcers Head: atraumatic, acephalic Eyes: PERRLA, no nystagmus present, conjunctiva clear, no scleral icterus Ears: diminished gross auditory acuity Heart: Normal rate and rhythm, no murmurs/rubs/gallops Lungs: no audible wheezes, crackles and normal breath sounds all lung saucedo Constitutional Vital Signs, click to edit/add: Last Vital Signs Temp 97.6 F 12/09/23 07:33 Pulse 115 H 12/09/23 07:57 Resp 20 12/09/23 07:33 BP 122/61 12/09/23 07:33 Pulse Ox 94 L 12/09/23 07:33 O2 Del Method Room Air 12/09/23 07:33 DS: Data Data Completed and Pending Labs on day of discharge: Labs from last 24 hours 12/09/23 12/08/23/24 04:03 21:11 20:40 WBC 6.5 5.9 RBC 3.23 L 3.04 L Hgb 8.6 L 8.3 L Hct 28.5 L 27.0 L MCV 88.2 88.8 MCH 26.6 27.3 MCHC 30.2 30.7 RDW 18.1 H 17.7 H Plt Count 133 L 119 L MPV 12.6 12.4 Neut % (Auto) 80.6 H 80.6 H Lymph % (Auto) 7.8 L 6.5 L [place] % (Auto) 10.1 11.9 Eos % (Auto) 0.5 L 0.5 L Baso % (Auto) 0.5 0.3 Neut # (Auto) 5.3 4.8 Lymph # (Auto) 0.5 L 0.4 L [place] # (Auto) 0.7 0.7 Eos # (Auto) 0.0 0.0 Baso # (Auto) 0.0 0.0 Abs Immat Gran (auto) 0.03 0.01 Imm/Tot Granulo (auto) 0.5 0.2 PT INR Sodium 133 L Potassium 3.9 Chloride 101 Carbon Dioxide 27.1 Anion Gap 8.8 BUN 13.0 Creatinine 0.51 L Est GFR ( Amer) >60 Est GFR (Non-Af Amer) >60 BUN/Creatinine Ratio 25.5 Glucose 93 Calcium 8.3 L Total Bilirubin 0.9 AST 20 ALT 23 Alkaline Phosphatase 121 H Total Protein 7.4 Albumin 1.8 L Globulin 5.6 Albumin/Globulin Ratio 0.3 POC Glucose 139 H Blood Type Antibody Screen Crossmatch 12/08/23 12/08/23 16:31 12:00 WBC 7.1 RBC 2.71 L Hgb 7.1 L Hct 24.5 L MCV 90.4 MCH 26.2 MCHC 29.0 L RDW 19.6 H Plt Count 151 MPV 12.5 Neut % (Auto) 84.7 H Lymph % (Auto) 5.3 L [place] % (Auto) 9.1 Eos % (Auto) 0.1 L Baso % (Auto) 0.4 Neut # (Auto) 6.0 Lymph # (Auto) 0.4 L [place] # (Auto) 0.7 Eos # (Auto) 0.0 Baso # (Auto) 0.0 Abs Immat Gran (auto) 0.03 Imm/Tot Granulo (auto) 0.4 PT 12.0 H INR 1.14 Sodium Potassium Chloride Carbon Dioxide Anion Gap BUN Creatinine Est GFR ( Amer) Est GFR (Non-Af Amer) BUN/Creatinine Ratio Glucose Calcium Total Bilirubin AST ALT Alkaline Phosphatase Total Protein Albumin Globulin Albumin/Globulin Ratio POC Glucose 143 H Blood Type O Positive Antibody Screen Negative Crossmatch See Detail Discharge Plan Discharge Disposition: Home Health Service Discharge Medications: Continued rosuvastatin 40 mg tablet 20 mg PO DAILY metformin 500 mg tablet 500 mg PO DAILY Patient Comments: TAKES WITH SUPPER digoxin [Digox] 125 mcg (0.125 mg) tablet 125 mcg PO DAILY Patient Comments: HOLD IF heart RATE IS LESS THAN 70 Verquvo 10 mg tablet 10 mg PO DAILY Rx Instructions: must administer with a meal/food cilostazol 100 mg tablet 100 mg PO BID biotin 10,000 mcg capsule 10,000 mcg PO BID aspirin 81 mg capsule 81 mg PO DAILY ferrous sulfate [Feosol] 325 mg (65 mg iron) tablet 325 mg PO DAILY acetaminophen 500 mg tablet 1,000 mg PO Q4H PRN (Reason: pain) Eliquis 5 mg tablet 5 mg PO BID mirtazapine 15 mg tablet 15 mg PO .QHS nystatin 100,000 unit/mL suspension 5 ml PO .TIDAC Patient Comments: FILLED 11/27/23 FOR 14 DAYS trazodone 50 mg tablet 50 mg PO BID tramadol 50 mg tablet 50 mg PO Q8H PRN (Reason: pain) Patient Comments: FILLED 12/05/23 FOR 7 DAYS Rx Instructions: SEVERE PAIN 8-10 Activity: resume usual activities as tolerated Diet: advance to your usual diet Patient Instructions: Anemia (DC) Forms: Portal Instructions Follow Up Appointments: PCP next week for recheck cbc, His GI doctor at [facility] for outpatient capsule study 1-2 weeks
[2023-12-09] MEDS: FERROUS SULFATE 325 MG TABLET PO (08:40)
[2023-12-09] MEDS: CILOSTAZOL 100 MG TABLET PO (08:40)
[2023-12-09] MEDS: DIGOXIN 125 MCG TABLET PO (08:40)
[2023-12-09] MEDS: GABAPENTIN 100 MG CAPSULE PO (08:40)
--- NOTE | 2023-12-09 10:09 | SWNOTE1 ---
Case management notified SW that pt has [facility] and will resume at discharge.
--- NOTE | 2023-12-09 10:41 | CM.NOTE ---
Rounds made with Dr. Lindo, pt will discharge to home today and f/u with Dr. Acevedo. Pt has Yissel RHODES coming in at 1:00 today.
--- NOTE | 2023-12-09 10:43 | SWNOTE1 ---
SW sent dc med rec, face sheet, ED note, H&P, and referral to [facility].
--- NOTE | 2023-12-09 10:50 | CM.NOTE ---
Medicare Outpatient Observation Notice discussed with pt, pt verbalizes understanding and signs paper. Original given to pt and copy placed on pt's chart.
--- NOTE | 2023-12-13 16:18 | CM.DCFOLLOWU ---
1st attempt. No answer
--- NOTE | 2023-12-14 15:12 | CM.DCFOLLOWU ---
Second attempt at discharge follow up call. Unable to reach patient at this time.
--- NOTE | 2023-12-15 14:00 | CM.DCFOLLOWU ---
Person spoke with: Pt's How are you feeling? He is much better after blood transfusions How is your pain? No pain Did you understand your discharge instructions? Yes Do you have any questions about your discharge instructions? No Were you given any prescriptions at discharge? No Were you able to get your prescriptions filled? N/A Do you understand how to take your medications as ordered? Yes Do you have any questions about your follow up appointment and do you plan to keep your follow up appointment? No he already had f/u with Dr. Acevedo Is there anything else that you would like to discuss? No Questions/Comments/Concerns/Other:
== END 2023-12-09 11:06 | disposition home health service (06) ==
LOC: ER 14:17 → MS 15:15
PROVIDERS: Admitting Provider Family Medicine; Emergency Provider Emergency Medicine Emergency Medical Services; PCP Internal Medicine; Visit Provider Family Medicine
DX: D50.0 Iron deficiency anemia secondary to blood loss (chronic) (principal); K92.2 Gastrointestinal hemorrhage, unspecified; I73.9 Peripheral vascular disease, unspecified; I48.0 Paroxysmal atrial fibrillation; I25.10 Atherosclerotic heart disease of native coronary artery without angina pectoris; I10 Essential (primary) hypertension; J44.9 Chronic obstructive pulmonary disease, unspecified; E11.9 Type 2 diabetes mellitus without complications; Z89.611 Acquired absence of right leg above knee; Z89.512 Acquired absence of left leg below knee; Z79.82 Long term (current) use of aspirin; Z95.1 Presence of aortocoronary bypass graft; Z79.01 Long term (current) use of anticoagulants; Z66 Do not resuscitate; Z87.891 Personal history of nicotine dependence; Z79.899 Other long term (current) drug therapy; Z79.84 Long term (current) use of oral hypoglycemic drugs; Z99.3 Dependence on wheelchair
CPT/HCPCS: 36415; 36430; 80053; 82948; 85025; 85610; 86850; 86900; 86901; 94761; 96374; 99285; G0378; P9016

== ENCOUNTER 2023-12-27 06:23 | Emergency (ER) | payer MEDICARE, SELFPAY ==
[2023-12-27 06:23] VITALS: BP 144/83; PULSE 88; RESP 18; TEMP 36.6; O2SAT 100; BMI 19.4
[2023-12-27 06:35] VITALS: RESP 20
--- OUTSIDE RECORDS SUMMARY | 2023-12-27 06:47 | XMS_ITS | CCD ---
Author Organization [facility] Care Team Providers Care Senior Writer Name Role Phone GIAN HORTA Primary Care Unavailable GIAN HORTA Referring Unavailable JIMMY LYNN Admitting Unavailable JIMMY LYNN Attending Unavailable GIAN HORTA JR Primary Care Physician PROVIDER, UNKNOWN Admitting Unavailable PROVIDER, UNKNOWN Attending Unavailable PROVIDER, UNKNOWN Admitting Unavailable PROVIDER, UNKNOWN Attending Unavailable RULA, DR ADKINS Primary Care Unavailable EVA, DR JENNIFER Garcia Attending Unavailwillard VELASQUEZ, DR JENNIFER Garcia Admitting Unavailwillard VELASQUEZ, DR JENNIFER Garcia Consulting UnavailMARIO Schwartz Consulting Unavailable DONALD LIMA Consulting Unavailable RULA, DR ADKINS Primary Care Unavailable CON .JÚNIOR Admitting Unavailable CON .JÚNIOR Attending Unavailable MARIO CULLEN Consulting Unavailable LUZ NIETO Consulting Unavailable CON ., JÚNIOR Consulting Unavailable RULA, DR ADKINS Primary Care Unavailable DIAB ., JAZZY Admitting Unavailable DIAB ., JAZZY Consulting Unavailable DIAB ., JAZZY Attending Unavailable ERWIN HURD Attending Unavailable RULA, DR ADKINS Primary Care Unavailable IVANIA HURDAMED Admitting Unavailable VICKEY, ERWIN Consulting Unavailable MARGRET, DR MARCO A Badillo [...] Attending Unavailable Vickey, Mohamed F. Attending Unavailable Vikcey, Mohamed F. Admitting Unavailable NONE, XXXX Referring Unavailable Vickey, Mohamed F. Admitting Unavailable Vickey, Mohamed F. Attending Unavailable Vickey, Mohamed F. Referring Unavailable Vickey, Mohamed F. Attending Unavailable Vickey, Mohamed F. Admitting Unavailable Vickey, Mohamed F. Referring Unavailable Vickey, Mohamed F. Admitting Unavailable Vickey, Mohamed F. Attending Unavailable Bekah LAUREN Attending Unavailable ALAHMAD, Alaa Admitting Unavailable [place] Attending Unavailable Blank, Chong S Consulting Unavailable Blank, Chong S Consulting Unavailable Blank, Chong S Consulting Unavailable Blank, Chong S Consulting Unavailable Blank, Chong S Consulting Unavailable Blank, Chong S Consulting Unavailable Blank, Chong S Consulting Unavailable Blank, Chong S Consulting Unavailable Blank, Chong S Consulting Unavailable Blank, Chong S Consulting Unavailable Morris, Andrea Consulting Unavailable Morris, Andrea Consulting Unavailable Morris, Andrea Consulting Unavailable Morris, Andrea Consulting Unavailable Morris, Andrea Consulting Unavailable Morris, Andrea Consulting Unavailable Morris, Andrea Consulting Unavailable Morris, Andrea Consulting Unavailable Morris, Andrea Consulting Unavailable FIDELINAYER, ANAIS A Referring Unavailable VALONE JR, GIAN L Primary Care Unavailable NATY MANNING Attending Unavailable VALONE JR, GIAN L Referring Unavailable VALONE JR, GIAN L Primary Care Unavailable ANAIS VAZQUEZ Referring Unavailable VALONE JR, GIAN L Primary Care Unavailable VALONE JR, GIAN L Primary Care Unavailable JACKIE FERNANDEZ Attending Unavailable KAMLYLA, ANAIS A Referring Unavailable VALONE JR, GIAN L Primary Care Unavailable KAMMEYER, ANAIS A Referring Unavailable GIAN HORTA JR Primary Care Unavailable ANAIS VAZQUEZ A Referring Unavailable GIAN HORTA JR Primary Care Unavailable Rula Vega., Gian ARANDA Primary Care Provider JAVIER GARCIA Attending Unavailable JIMMY OWUSU Attending Unavailable SALINA SLADE Attending Unavailable YASIR NICHOLAS Referring Unavailable VICKEY, ERWIN Attending Unavailable VICKEY, MOHAMED Admitting Unavailable EDUARDO, EVELYN Admitting Unavailable RODY, ELHAMMED Attending Unavailable GANGWANI, MONA MANE Consulting Unavailab le NAZZAL, ANJELICA Attending Unavailable NAZZAL, ANJELICA Attending Unavailable NAZZAL, MUNIER Admitting Unavailable VICKEY, ERWIN Attending Unavailable KOBEISSDESTINY Warren Attending Unavailable GANGWANI, MONA MANE Referring Unavailab le NUGENT, TANJA Attending Unavailable GANGWANI, MONA MANE Referring Unavailab le TOFLINSKIREBECCA Referring Unavailable NUGENT, TANJA Referring Unavailable VICKEY, MOHAMED Referring Unavailable VICKEY, ERWIN Attending Unavailable NUGENT, TANJA Attending Unavailable ENIXANGELES Attending Unavailable NAZZAL, ANJELICA Referring Unavailable NAZZAL, MUNIER Admitting Unavailable NAZZAL, MUNIER Attending Unavailable JONNY, LEXUS Referring Unavailable NAZZAL, MUNIER Referring Unavailable VICKEY, IVANIAAMED Attending Unavailable JÚNIOR ANDUJAR Referring Unavailable VICKEY, MOHAMED Admitting Unavailable VICKEY, ERWIN Attending Unavailable KAMMEYERANAIS Consulting Unavailable ROSSANA MIRZA Referring Unavailable VICKEY, MOHAMED Admitting Unavailable NUGENTTANJA COLE Attending Unavailable LINUS HER Referring Unavailable CLIFFELELIANA Referring Unavailable NUGENT, TANJA Referring Unavailable ALEJANDROJUHI Referring Unavailable GANGWANI, MONA MANE Referring Unavailab le VICKEY, ERWIN Attending Unavailable Allergies Allergy Classification Reported Allergen(s) Allergy Type Date of Onset Reaction(s) Facility (5 sources) Codeine; Translations: [codeine] Drug Allergy 08-20-20 09 [facility] (6 sources) Iodine; Translations: [iodine] Drug Allergy 08-20-20 Unknown [facility] (3 sources) Levamisole; Translations: [Phenergan] Drug Allergy 04-03-20 21 [facility] (4 sources) Shellfish; Translations: [shellfish] Drug allergy (disorder) 08-20-20 09 Vomiting (disorder) [facility] (20 sources) Codeine; Translations: [codeine] Drug Allergy 10-07-20 Vomitus (substance), Vomiting [facility] (18 sources) Iodine; Translations: [iodine] Drug Allergy 09-30-20 Vomitus (substance), Vomiting [facility] (20 sources) Promethazine; Translations: [promethazine] Drug Allergy 10-07-20 Vomitus (substance), Vomiting [facility] (1 source) Iodine and Iodide Containing Products Drug allergy (disorder) [facility] Repository (6 sources) Shellfish; Translations: [shellfish] Drug allergy 10-07-20 Vomiting (disorder), Vomiting [facility] (4 sources) DAPTOmycin; Translations: [DAPTOMYCIN] Drug Allergy 07-28-20 Hallucinations [facility] Rep[facility] (2 sources) cefepime; Translations: [CEFEPIME] Drug Allergy 07-28-20 Hallucinations [facility] (3 sources) IODINATED CONTRAST MEDIA; Translations: [IODINATED CONTRAST MEDIA] Propensity to adverse reactions to drug (disorder) 04-07-20 [facility] Rep[facility] (1 source) SHELLFISH CONTAINING PRODUCTS; Translations: [SHELLFISH CONTAINING PRODUCTS] Propensity to adverse reactions to food (disorder) 10-07-20 [facility] Repository (1 source) Shellfish; Translations: [SHELLFISH DERIVED] Propensity to adverse reactions to drug (disorder) 10-07-20 [facility] Repository Medications Current Medications Medication Drug Class(es) Dates Sig (Normalized) Sig (Original) acetaminophen 325 mg oral tablet (5 sources) Start: 03-10-2023 take 2 tablets by mouth every six hours as needed for pain acetaminophen 325 mg Tab 650 mg = 2 tab(s), Oral, q6hr, PRN Pain, Refills(s) 0 Start Date: 03/10/23 Status: Ordered take 1 tablet by joyce every six hours as needed for pain acetaminophen (TYLENOL EXTRA STRENGTH) 5 00 mg tablet Take 1 tablet (500 mg total) by mouth every 6 (six) hours as needed for pain. 0 Active apixaban 5 mg oral tablet (15 sources) Factor Xa Inhibitor Start: 12-09-2022 take 1 tablet by mouth twice daily Eliquis 5 mg oral tablet 5 mg = 1 tab(s), Oral, BID, Refills(s) 0, Blood Thinner Start Date: 04/08/23 Status: Ordered ascorbic acid 500 mg oral tablet (11 sources) Vitamin C Start: 11-26-2022 take 1 tablet by mouth once daily ascorbic acid 500 mg Tab 500 mg = 1 tab(s), Oral, Daily, # 30 tab(s), Refills(s) 0 Start Date: 11/26/22 Status: Ordered take 1 tablet by mouth in the mo rning ascorbic acid, vitamin C, (vitamin C) 1000 mg tablet Take 1 tablet (1,000 mg total) by mouth in the morning. 0 Active aspirin 81 mg delayed release oral tablet (13 sources) Platelet Aggregation Inhibitor, Nonsteroidal Anti-inflammatory Drug Start: 11-26-2022 take 1 tablet by mouth once daily aspirin 81 mg Oral EC Tab 81 mg = 1 tab(s), Oral, Daily, # 30 tab(s), Refills(s) 0, Blood Thinner Start Date: 02/23/23 Status: Ordered biotin 0.3 mg oral tablet (19 sources) Start: 02-23-2023 take 1 tablet by mouth twice daily biotin 300 mcg oral tablet 300 mcg = 1 tab(s), Oral, BID, # 60 tab(s), Refills(s) 0, Prophylaxis Start Date: 02/23/23 Status: Ordered Start: 11-26-2022 biotin Refills (s) 0 Start Date: 11/26/22 Status: Ordered take 1 tablet by joyce th in the evening biotin 10 mg tablet Take 10 mg by mouth in the evening. 0 Active Biotin 86495 MCG as directed Orally bid Active carvedilol [...] Status: Ordered cholecalciferol 0.025 mg oral tablet (19 sources) Vitamin D Start: 02-23-2023 take 1 tablet by mouth once daily cholecalciferol 1000 intl units (25 mcg) oral tablet 50 mcg = 2 tab(s), Oral, Daily, # 30 tab(s), Refills(s) 0, Prophylaxis Start Date: 02/23/23 Status: Ordered Start: 11-26-2022 cholecalcifero l Refills(s) 0 Start Date: 11/26/22 Status: Ordered take 2 tablets by [facility] in the morning cholecalciferol, vitamin D3, 10 mcg (400 unit) capsule Take 2 tablets by mouth in the morning. 0 Active take 1 capsule by [facility] every twenty-four hours Vitamin D3 1000 UNIT 1 capsule Orally Once a day Active clopidogrel 75 mg oral tablet (11 sources) P2Y12 Platelet Inhibitor Start: 12-09-2022 take 1 tablet by mouth once daily clopidogrel 75 mg Tab 75 mg = 1 tab(s), Oral, Daily Start Date: 12/09/22 Status: Ordered digoxin 0.125 mg oral tablet (20 sources) Cardiac Glycoside Start: 11-26-2022 take 1 tablet by mouth in the morning digoxin (LANOXIN) 125 mcg tablet Take 1 tablet (125 mcg total) by mouth in the morning. 0 11/26/2022 Active Start: 11-26-2022 End: 03-09-2023 take 1 tablet by mouth once daily digoxin 125 mcg (0.1 25 mg) Tab 125 mcg = 1 tab(s), Oral, Daily, heart, Other (see comment) Start Date: 11/26/22 Status: Ordered diphenhydrAMINE hydrochloride 25 mg oral capsule (5 sources) Histamine-1 Receptor Antagonist Start: 02-10-2023 take 2 capsules by mouth every hour Benadryl 25 mg Cap See Instructions, Take 2 caps PO 1 hour PRIOR to Study, # 2 cap(s), Refills(s) 0, [facility]: [id number], 168, cm, 01/06/23 11:42:00 EDT, Height/Length Dosing, 65.1, kg, 01/06/23 11:42:00 EDT, Weight Dosing Start Date: 02/10/23 Status: Ordered Ensure (6 sources) Start: 03-10-2023 Ensure 237 mL, Oral, [...] Status: Ordered ezetimibe 10 mg oral tablet (17 sources) Dietary Cholesterol Absorption Inhibitor Start: 04-08-2023 [...] day Active famotidine 40 mg oral tablet (19 sources) Histamine-2 Receptor Antagonist Start: 11-26-2022 take 1 tablet by mouth in the morning, then take 1 tablet by mouth at bedtime famotidine (PEPCID) 40 mg tablet Take 1 tablet (40 mg total) by mouth in the morning and 1 tablet (40 mg total) before bedtime. 0 11/26/2022 Active take 1 tablet by joyce th every twenty-four hours Pepcid 20 MG 1 tablet at bedtime as needed Orally Once a day Active ferrous sulfate 325 mg oral tablet (15 sources) Start: 04-08-2023 take 1 tablet by joyce th once daily at breakfast ferrous sulfate 325 (65 FE) mg tablet Take 1 tablet (325 mg total) by mouth daily with breakfast. 0 04/08/2023 Active Start: 04-08-2023 take 1 tablet by joyce th three times daily ferrous sulfate 325 mg Tab 325 mg = 1 tab(s), Oral, TID, Refills(s) 0, Prophylaxis Start Date: 04/08/23 Status: Ordered Start: 11-26-2022 ferrous sulfat e Refills(s) 0 Start Date: 11/26/22 Status: Ordered Angel (2 sources) Start: 03-10-2023 Angel Oral, BI D, 0 Start Date: 03/10/23 Status: Ordered lisinopril 10 mg oral tablet (10 sources) Angiotensin Converting Enzyme Inhibitor Start: 11-26-2022 take 1 tablet by mouth once daily in the morning lisinopril 10 mg Tab take 1 tablet by mouth every morning Start Date: 11/26/22 Status: Ordered magnesium oxide 400 mg oral tablet (6 sources) Start: 02-23-2023 take 1 tablet by mouth once daily magnesium oxide 400 mg Tab 400 mg = 1 tab(s), Oral, Daily, # 10 tab(s), Refills(s) 0, Prophylaxis Start Date: 02/23/23 Status: Ordered metFORMIN hydrochloride 500 mg oral tablet (19 sources) Biguanide Start: 11-26-2022 take 1 tablet by mouth once daily metFORMIN (GLUCOPHAGE) 500 mg tablet Take 1 tablet (500 mg total) by mouth nightly. 0 11/26/2022 Active Misc DME Prescription (4 sources) Start: 04-06-2023 montelukast 10 mg oral tablet (13 sources) Leukotriene Receptor Antagonist Start: 11-26-2022 take 1 tablet by mouth once daily montelukast 10 mg Tab take 1 tablet by mouth once daily Start Date: 11/26/22 Status: Ordered nystatin [id number] unt/ml oral suspension (2 sources) Polyene Antifungal Start: 02-23-2023 nystatin 10 0,000 units/mL Oral Susp 1,500,000 unit(s) = 15 mL, Oral, QIDACHS, Refills(s) 0 Start Date: 02/23/23 Status: Ordered omeprazole 40 mg delayed release oral capsule (2 sources) Proton Pump Inhibitor take 1 capsule by mouth once daily Omeprazole 40 MG 1 capsule 30 minutes before morning meal Orally Once a day Active ondansetron 4 mg oral tablet (3 sources) Serotonin-3 Receptor Antagonist Start: 07-19-2023 take 1 tablet by mouth every eight hours as needed ondansetron (ZOFRAN) 4 mg tablet Take 1 tablet (4 mg total) by mouth every 8 (eight) hours as needed. 0 07/19/2023 Active take 1 tablet by joyce th every twenty-four hours Ondansetron HCl 4 MG 1 tablet Orally Onc e a day Active oxyCODONE hydrochloride 10 mg oral tablet (1 source) Opioid Agonist Start: 03-10-2023 End: 03-13-2023 take 1 tablet by mouth every six hours as needed for pain oxycodone 10 mg oral tablet 10 mg = 1 tab(s), Oral, q6hr, PRN Pain, X 3 day(s), # 12 tab(s), Refills(s) 0 Start Date: 03/10/23 Stop Date: 03/13/23 Status: Ordered pantoprazole 40 mg delayed release oral tablet (1 source) Proton Pump Inhibitor Start: 08-15-2023 take 1 tablet by mouth in the morning, then take 1 tablet by mouth at bedtime pantoprazole (PROTONIX) 40 mg EC tablet Take 1 tablet (40 mg total) by mouth in the morning and 1 tablet (40 mg total) before bedtime. 120 tablet 0 08/15/2023 Active predniSONE 50 mg oral tablet (5 sources) [...] study, # 3 tab(s), Refills(s) 0, [facility]: [facility] #[id number], 168, cm, 01/06/23 11:42:00 EDT, Height/Length Dos... Start Date: 02/10/23 Status: Ordered QUEtiapine 25 mg oral tablet (2 sources) Atypical Antipsychotic Start: 03-10-2023 take 1 tablet by mouth at bedtime SEROquel 25 mg Tab 25 mg = 1 tab(s), Oral, Bedtime, Refills(s) 0 Start Date: 03/10/23 Status: Ordered rosuvastatin calcium 40 mg oral tablet (16 sources) HMG-CoA Reductase Inhibitor Start: 02-17-2023 take 1 tablet by mouth once daily rosuvastatin 40 mg Tab 40 mg = 1 tab(s), Oral, Daily, Refills(s) 0, High cholesterol Start Date: 04/08/23 Status: Ordered sennosides, custodial 8.6 mg oral tablet (2 sources) Start: [...] Ordered traZODone hydrochloride 50 mg oral tablet (13 sources) Serotonin Reuptake Inhibitor Start: 11-26-2022 take [...] daily Start Date: 11/26/22 Status: Ordered vericiguat (VERQUVO) 10 mg tablet (1 source) Start: 11-26-2022 take 1 tablet by mouth in the morning vericiguat (VERQUVO) 10 mg tablet Take 10 mg by mouth in the morning. 0 11/26/2022 Active vericiguat 10 MG Oral Tablet [Verquvo] (16 sources) Start: 11-26-2022 take 1 tablet by mouth once daily Verquvo 10 mg oral tablet 10 mg = 1 tab(s), Oral, Daily, heart, Refills(s) 0 Start Date: 11/26/22 Status: Ordered Start: 11-26-2022 take 1 tablet by joyce once daily Verquvo 10 mg oral tablet 10 mg = 1 tab(s), Oral, Daily, Refills(s) 0 Start Date: 11/26/22 Status: Ordered Start: 11-26-2022 Verquvo 10 mg oral tablet Refills(s) 0 Start Date: 11/26/22 Status: Ordered vitamin b12 1 mg/ml injectable solution (17 sources) Vitamin B12 Start: 02-23-2023 inject 1 mL by subcutaneous injection every 30 days cyanocobalamin (VITAMIN B-12) 1,000 mcg/mL injection Inject 1 mL (1,000 mcg total) under the skin every 30 (thirty) days. 0 02/23/2023 Active Start: 02-23-2023 inject 1000 ug by martinez bcutaneous injection every other week cyanocobalamin 1000 mcg/mL Inj 1,000 mcg = 1 mL, SubCutaneous, q2wk, # 10 mL, Refills(s) 0 Start Date: 02/23/23 Status: Ordered Start: 11-26-2022 cyanocobalamin Refills(s) 0 Start Date: 11/26/22 Status: Ordered Completed/Discontinued Medications Medication Drug Class(es) Dates Sig (Normalized) Sig (Original) blood administration sets blood administration set (1 source) Start: 12-07-2023 End: 12-07-2023 blood administration sets blood administration set Please administer 1 unit of pRBC's 1 each 1 12/07/2023 12/07/2023 Discontinued (Error) cilostazol 100 mg oral tablet (15 sources) Phosphodiesterase 3 Inhibitor Start: 05-09-2023 End: 05-03-2024 take 1 tablet by mouth twice daily cilostazol 100 mg Tab 100 mg = 1 tab(s), Oral, BID, take 1 tablet by mouth twice a day, X 90 day(s), # 180 tab(s), Refills(s) 3, [facility]: [facility] #[id number], 168, cm, 05/09/23 9:37:00 EDT, Height/Length Dosing, 51.5, kg, 04/08/23 8:25:00 EDT, Weight Dosing Start Date: 05/09/23 Stop Date: 05/03/24 Status: Ordered Start: 02-10-2023 End: 03-12-2023 take 1 tablet by mouth twice daily cilostazol 100 mg Tab 100 mg = 1 tab(s), Oral, BID, X 30 day(s), # 60 tab(s), Refills(s) 0, [facility]: [facility] #[id number], 168, cm, 01/06/23 11:42:00 EDT, Height/Length Dosing, [...] (2 sources) Start: 03-10-2023 oxymetazoline Nasal 0.05% [place] 2 spray(s), Nasal, BID Other (see comment), Refill(s) 0, Nose bleeds - prn use Start Date: 03/10/23 Status: Ordered Problems Active Problems Problem Classification Problem Date Documented Da te Episodic/Chronic Acute posthemorrhagic anemia (2 sources) Acute posthemorrhagic anemia; Translations: [Acute posthemorrhagic anemia] Onset: Episodic Aortic; peripheral; and visceral artery aneurysms [...] Chronic Complication of device; implant or graft (1 source) Other specified complication of vascular prosthetic devices, implants and grafts, initial encounter; Translations: [OTH COMP VASC PROSTH DEV GRAFT INIT] Onset: 3 Chronic Complication of device; implant or graft (6 sources) 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, initial encounter; Translations: [Infection and inflammatory reaction due to other cardiac and vascular devices, implants and grafts, initial encounter] Onset: 3 Episodic Complications of surgical procedures or medical care (4 sources) Postoperative complication; Translations: [Other postprocedural complications and disorders of genitourinary system] Onset: 3 Episodic Congestive heart failure; nonhypertensive (2 sources) Chronic systolic (congestive) heart failure; Translations: [Chronic systolic (congestive) heart failure] Onset: 3 Chronic Deficiency and other anemia (1 source) Anemia; Translations: [Anemia in other chronic diseases classified elsewhere] Onset: 3 Chronic Deficiency and other anemia (4 sources) Anemia, unspecified; Translations: [ANEMIA UNSPECIFIED] Onset: 3 Episodic Deficiency and other anemia (2 sources) Anemia; Translations: [Anemia, unspecified] Onset: 3 Episodic Diabetes mellitus with complications (2 sources) Type 2 diabetes mellitus with other specified complication; Translations: [Type 2 diabetes mellitus with other specified complication] Onset: 4 Chronic Diabetes mellitus without complication (7 sources) Type 2 diabetes mellitus without complication; Translations: [Type 2 diabetes mellitus without complications] Onset: 3 Chronic E Codes: Fall (1 source) Fall on same level from slipping, tripping and stumbling with subsequent striking against unspecified object, initial encounter; Translations: [FALL SAME LVL SLIP STRK UNS OBJ INT] Onset: 3 Episodic Esophageal disorders (9 sources) Gastroesophageal reflux disease without esophagitis; Translations: [Gastro-esophageal reflux disease without esophagitis] Onset: 3 Chronic Gangrene (2 sources) Atherosclerosis of [place] arteries of extremities with gangrene, left leg; Translations: [Atherosclerosis of [place] arteries of extremities with gangrene, left leg] Onset: 4 Chronic Gangrene (2 sources) Gangrene, not elsewhere classified; Translations: [Gangrene, not elsewhere classified] Onset: 4 Episodic Gastrointestinal hemorrhage (2 sources) Gastrointestinal hemorrhage, unspecified; Translations: [Gastrointestinal hemorrhage, unspecified] Onset: 4 Episodic Genitourinary symptoms and ill-defined conditions (1 source) Retention of urine; Translations: [Other retention of urine] Onset: 3 Episodic Malaise and fatigue (1 source) Weakness; Translations: [WEAKNESS] Onset: 3 Episodic Open wounds of extremities (2 sources) 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, initial encounter; Translations: [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, initial encounter] Onset: 4 Chronic Open wounds of extremities (2 sources) [...] surgical aftercare] Onset: 3 Episodic Other aftercare (3 sources) detention (current) use of anticoagulants; Translations: [SENIOR CARE CURRNT USE ANTICOAGULANTS] Onset: 3 Episodic Other aftercare (1 source) terminal computer operator (current) use of aspirin; Translations: [SENIOR CARE CURRENT USE OF ASPIRIN] Onset: 3 Episodic Other aftercare (1 source) terminal computer operator (current) use of antithrombotics/antipl atelets; Translations: [SENIOR CARE ANTITHROMBOT/ANTIPLATL ETS] Onset: 3 Episodic Other aftercare (1 source) Other skilled nursing (current) drug therapy; Translations: [OTH RETURN CHECKER CURRENT DRUG THERAPY] Onset: 3 Episodic Other aftercare (1 source) terminal computer operator (current) use of oral hypoglycemic drugs; Translations: [RETURN CHECKER USE ORAL HYPOGLYCEMIC DX] Onset: 3 Episodic [...] Chronic Other bone disease and musculoskeletal deformities (3 sources) Acquired absence of right leg above knee; Translations: [Acquired absence of right leg above knee] Onset: 4 Chronic Other bone disease and musculoskeletal deformities (2 sources) Acquired absence of left leg above knee; Translations: [Acquired absence of left leg above knee] Onset: 4 Chronic Other circulatory disease (2 sources) Presence of other vascular implants and grafts; Translations: [Presence of other vascular implants and grafts] Onset: 3 Chronic Other circulatory disease (1 source) Hemorrhage, not elsewhere classified; Translations: [HEMORRHAGE NOT ELSEWHERE CLASSIFIED] Onset: 3 Episodic Other circulatory disease (3 sources) Other disorder of circulatory system; Translations: [OTHER DISORDER CIRCULATORY SYSTEM] Onset: 3 Episodic Other circulatory disease (1 source) Disorder of cardiovascular system; Translations: [Other disorder of circulatory system] Onset: 3 Episodic Other connective tissue disease (2 sources) Other muscle spasm; Translations: [Other muscle spasm] Onset: 3 Episodic Other injuries and conditions due to external causes (1 source) History of falling; Translations: [HISTORY OF FALLING] Onset: 3 Episodic Other nervous system disorders (7 sources) Metabolic encephalopathy; Translations: [Metabolic encephalopathy] Onset: [...] Episodic Other nutritional; endocrine; and metabolic disorders (6 sources) 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-25-2023 Chronic Other screening for suspected conditions (not mental disorders or infectious disease) (2 sources) Other specified abnormal findings of blood chemistry; Translations: [Other specified abnormal findings of blood chemistry] Onset: 4 Episodic Other upper respiratory disease (1 source) Bleeding from nose; Translations: [Epistaxis] Onset: 3 Episodic Kiya-; endo-; and myocarditis; cardiomyopathy (except that caused by tuberculosis or sexually transmitted disease) (1 source) Endocarditis, valve unspecified; Translations: [Endocarditis, valve unspecified] Onset: 4 Chronic Peripheral and visceral atherosclerosis (17 sources) Peripheral vascular disease, unspecified; Translations: [Atherosclerosis of [place] arteries of extremities with rest pain, left leg] Onset: 3 Chronic Phlebitis; thrombophlebitis and thromboembolism (4 sources) H/O: thrombosis 04-08-2023 Episodic Residual codes; unclassified (1 source) Patient encounter status; Translations: [Other specified health status] Onset: 3 Episodic Screening and history of mental health and substance abuse codes (1 source) Personal history of nicotine dependence; Translations: [PERSONAL HISTORY OF NICOTINE DEPEND] Onset: 3 Episodic Superficial injury; contusion (1 source) Contusion of right hip, initial encounter; Translations: [CONTUSION RIGHT HIP INITIAL ENC] Onset: 3 Episodic Unclassified (1 source) CONTACT W/AND (SUSP) EXPOS COVID-19; Translations: [CONTACT W/AND (SUSP) EXPOS COVID-19] Onset: 3 Unclassified (1 source) Abnormal Lab Onset: 4 Unclassified (1 source) EMS Onset: 4 Unclassified (1 source) Elevation of levels of liver transaminase levels; Translations: [Elevation of levels of liver transaminase levels] Onset: 4 Unclassified (2 sources) Hospital Follow-up; Translations: [Hospital Follow-up] Onset: 4 Unclassified (2 sources) Infection in Left Hip Onset: 4 Past or Other Problems Problem Classification Problem Date Documented Da te Episodic/Chronic Other aftercare (2 sources) Encounter for follow-up examination after completed treatment for conditions other than malignant neoplasm; Translations: [Encounter for follow-up examination after completed treatment for conditions other than malignant neoplasm] Onset: 05-16-2023 Episodic Other connective tissue disease (1 source) Pain in left leg; Translations: [PAIN IN LEFT LEG] Onset: 11-03-2022 Episodic Other connective tissue disease (1 source) Other specified soft tissue disorders; Translations: [OTHER SPEC SOFT TISSUE DISORDERS] Onset: 11-03-2022 Episodic Other injuries and conditions due to external causes (2 sources) Other injury of unspecified body region, initial encounter; Translations: [Other injury of unspecified body region, initial encounter] Onset: 09-18-2023 Episodic Skin and subcutaneous tissue infections (2 sources) Local infection of the skin and subcutaneous tissue, unspecified; Translations: [Local infection of the skin and subcutaneous tissue, unspecified] Onset: 09-18-2023 Episodic Unclassified (1 source) Elevation of levels of liver transaminase levels; Translations: [Elevation of levels of liver transaminase levels] Onset: 11-17-2023 Results Test Name Value Interpretation Reference Range Facility 30on 12-24-2023 30 Normal [facility] BASIC METABOLIC PANELon 12-08 Anion gap [Moles/Vol] 13 mmol/L Normal 7-20 [facility] Comment on above: Performed By: #### L [id number] ####[facility] ([facility] [place] [address] Calcium [Mass/Vol] 8.3 mg/dL Low 8.6-10.3 [facility] Comment on above: Performed By: #### L [id number] ####[facility] [place] [address] Chloride [Moles/Vol] 97 mmol/L Low 98-107 [facility] Comment on above: Performed By: #### L [id number] ####[facility] [place] [address] CO2 [Moles/Vol] 22 mmol/L Normal 21-31 [facility] Comment on above: Performed By: #### L [id number] ####[facility] [place] [address] Creatinine [Mass/Vol] 0.44 mg/dL Low 0.70-1.30 [facility] Comment on above: Performed By: #### L [id number] ####[facility] ([facility])[address] [place] [address] GLOMERULAR FILTRATION RATE ML/MIN/1.73 SQ M.PREDICTED 109.2 mL/min/1.73m*2 Normal >60.0 [facility] Comment on above: Result Comment: [facility]???s estimated glomerular filtration rate (eGFR) will [...] of individuals. Performed By: #### L [id number] ####[facility] [place] [address] Glucose [Mass/Vol] 112 mg/dL High 70-100 [facility] Comment on above: Performed By: #### L [id number] ####[facility] [place] [address] Potassium [Moles/Vol] 3.8 mmol/L Normal 3.5-5.1 [facility] Comment on above: Performed By: #### L [id number] ####[facility] [place] [address] Sodium [Moles/Vol] 128 mmol/L Low 136-145 [facility] Comment on above: Performed By: #### L [id number] ####[facility] [place] [address] Urea nitrogen [Mass/Vol] 16 mg/dL Normal 7-25 [facility] Comment on above: Performed By: #### L [id number] ####[facility] ([facility])[address] [place] [address] UREA NITROGEN/CREATININE (MASS RATIO) IN SER/PLAS 36.4 Normal [facility] Comment on above: Performed By: #### L [id number] ####[facility] ([facility])[address] [place] [address] CBCon 12-24-2023 Erythrocyte distribution width (RBC) [Ratio] 18.3 % High 11.5-15.0 [facility] Comment on above: Performed By: #### L [id number] ####[facility] ([facility])[address] [place] [address] ERYTHROCYTE MEAN CORPUSCULAR HEMOGLOBIN CONCENTRATION (G/DL) BY AUTOMATED 30.9 g/dL Low 32.0-35.0 [facility] Comment on above: Performed By: #### L [id number] ####[facility] [place] [address] Hematocrit (Bld) [Volume fraction] 24.9 % Low 39.0-55.0 [facility] Comment on above: Performed By: #### L [id number] ####[facility] [place] [address] Hemoglobin (Bld) [Mass/Vol] 7.7 g/dL Low 13.0-17.0 [facility] Comment on above: Performed By: #### L [id number] ####[facility] ([facility])[address] [place] [address] MCH (RBC) [Entitic mass] 27.1 pg Normal 27.0-33.0 [facility] Comment on above: Performed By: #### L [id number] ####[facility] [place] [address] MCV (RBC) [Entitic vol] 87.7 fL Normal 82.0-98.0 [facility] Comment on above: Performed By: #### L [id number] ####[facility] ([facility])[address] [place] [address] PLATELETS (10*3/UL) IN BLOOD AUTOMATED COUNT 172 10*3/uL Normal 150-400 [facility] Comment on above: Performed By: #### L [id number] ####[facility] ([facility])[address] [place] [address] RBC (Bld) [#/Vol] 2.84 10*6/uL Low 4.20-5.70 [facility] Comment on above: Performed By: #### L [id number] ####[facility] ([facility])[address] [place] [address] WBC (Bld) [#/Vol] 9.38 10*3/uL Normal 4.00-10.60 [facility] Comment on above: Performed By: #### L [id number] ####[facility] ([facility])[address] [place] [address] MAGNESIUMon 12-24-2023 Magnesium [Mass/Vol] 1.8 mg/dL Low 1.9-2.7 [facility] Comment on above: Performed By: #### L [id number] ####[facility] ([facility])[address] [place] [address] NURSNOTEon 12-24-2023 NURSNOTE Called [facility] at [facility]. Left phone number with person who answered. Said nurse would call me back. Normal [facility] PHOSPHORUSon 12-24-2023 Magnesium [Mass/Vol] 2.8 mg/dL Normal 2.5-5.0 [facility] Comment on above: Performed By: #### L [id number] ####[facility] ([facility])[address] [place] [address] POCT GLUCOSE METER UNSOLICIT ED RESULTSon 12-24-2023 Glucose [Mass/Vol] 192 mg/dL High 70-105 [facility] Comment on above: Order Comment: Waive d Testing in the ED is performed under the ED CLIA certificate #[id number]. Result Comment: [email or web address] Performed By: #### L [id number] ####[facility] ([facility])[address] [place] [address] Glucose [Mass/Vol] 135 mg/dL High 70-105 [facility] Comment on above: Order Comment: Waive d Testing in the ED is performed under the ED CLIA certificate #[id number]. Result Comment: [email or web address] Performed By: #### L [id number] ####[facility] ([facility])[address] [place] [address] 30on 12-23-2023 30 Normal [facility] 30 Normal [facility] BASIC METABOLIC PANELon 12-08 Anion gap [Moles/Vol] 14 mmol/L Normal 7-20 [facility] Comment on above: Performed By: #### L [id number] ####[facility] ([facility])[address] [place] [address] Calcium [Mass/Vol] 8.3 mg/dL Low 8.6-10.3 [facility] Comment on above: Performed By: #### L [id number] ####[facility] ([facility])[address] [place] [address] Chloride [Moles/Vol] 95 mmol/L Low 98-107 [facility] Comment on above: Performed By: #### L [id number] ####[facility] ([facility])[address] [place] [address] CO2 [Moles/Vol] 23 mmol/L Normal 21-31 [facility] Comment on above: Performed By: #### L [id number] ####[facility] ([facility])[address] [place] [address] Creatinine [Mass/Vol] 0.45 mg/dL Low 0.70-1.30 [facility] Comment on above: Performed By: #### L [id number] ####[facility] ([facility])[address] [place] [address] GLOMERULAR FILTRATION RATE ML/MIN/1.73 SQ M.PREDICTED 108.4 mL/min/1.73m*2 Normal >60.0 [facility] Comment on above: Result Comment: [facility]???s estimated glomerular filtration rate (eGFR) will [...] of individuals. Performed By: #### L [id number] ####[facility] ([facility])[address] [place] [address] Glucose [Mass/Vol] 104 mg/dL High 70-100 [facility] Comment on above: Performed By: #### L [id number] ####[facility] ([facility])[address] [place] [address] Potassium [Moles/Vol] 3.7 mmol/L Normal 3.5-5.1 [facility] Comment on above: Performed By: #### L [id number] ####[facility] ([facility])[address] [place] [address] Sodium [Moles/Vol] 128 mmol/L Low 136-145 [facility] Comment on above: Performed By: #### L [id number] ####[facility] ([facility] [facility] [place] [address] Urea nitrogen [Mass/Vol] 11 mg/dL Normal 7-25 [facility] Comment on above: Performed By: #### L [id number] ####[facility] [place] [address] UREA NITROGEN/CREATININE (MASS RATIO) IN SER/PLAS 24.4 Normal [facility] Comment on above: Performed By: #### L [id number] ####[facility] ([facility])[address] [place] [address] CBCon 12-23-2023 Erythrocyte distribution width (RBC) [Ratio] 18.4 % High 11.5-15.0 [facility] Comment on above: Performed By: #### L [id number] ####[facility] ([facility])[address] [place] [address] ERYTHROCYTE MEAN CORPUSCULAR HEMOGLOBIN CONCENTRATION (G/DL) BY AUTOMATED 30.1 g/dL Low 32.0-35.0 [facility] Comment on above: Performed By: #### L [id number] ####[facility] ([facility])[address] [place] [address] Hematocrit (Bld) [Volume fraction] 26.6 % Low 39.0-55.0 [facility] Comment on above: Performed By: #### L [id number] ####[facility] ([facility])[address] [place] [address] Hemoglobin (Bld) [Mass/Vol] 8.0 g/dL Low 13.0-17.0 [facility] Comment on above: Performed By: #### L [id number] ####[facility] ([facility])[address] [place] [address] MCH (RBC) [Entitic mass] 26.8 pg Low 27.0-33.0 [facility] Comment on above: Performed By: #### L [id number] ####[facility] [place] [address] MCV (RBC) [Entitic vol] 89.0 fL Normal 82.0-98.0 [facility] on above: Performed By: #### L [id number] ####[facility] ([facility])[address] [place] [address] PLATELETS (10*3/UL) IN BLOOD AUTOMATED COUNT 196 10*3/uL Normal 150-400 [facility] Comment on above: Performed By: #### L [id number] ####[facility] ([facility])[address] [place] [address] RBC (Bld) [#/Vol] 2.99 10*6/uL Low 4.20-5.70 [facility] Comment on above: Performed By: #### L [id number] ####[facility] ([facility])[address] [place] [address] WBC (Bld) [#/Vol] 13.04 10*3/uL High 4.00-10.60 [facility] Comment on above: Performed By: #### L [id number] ####[facility] ([facility])[address] [place] [address] DSon 12-23-2023 DS Normal [facility] MAGNESIUMon 12-23-2023 Magnesium [Mass/Vol] 1.9 mg/dL Normal 1.9-2.7 [facility] Comment on above: Performed By: #### L [id number] ####[facility] ([facility])[address] [place] [address] PHOSPHORUSon 12-23-2023 Magnesium [Mass/Vol] 3.0 mg/dL Normal 2.5-5.0 [facility] Comment on above: Performed By: #### L [id number] ####[facility] ([facility])[address] [place] [address] POCT GLUCOSE METER UNSOLICIT ED RESULTSon 12-23-2023 Glucose [Mass/Vol] 156 mg/dL High 70-105 [facility] Comment on above: Order Comment: Waive d Testing in the ED is performed under the ED CLIA certificate #[id number]. Result Comment: [email or web address] Performed By: #### L [id number] ####[facility] ([facility])[address] [place] [address] Glucose [Mass/Vol] 99 mg/dL Normal 70-105 [facility] Comment on above: Order Comment: Waive d Testing in the ED is performed under the ED CLIA certificate #[id number]. Result Comment: [email or web address] Performed By: #### L [id number] ####[facility] ([facility])[address] [place] [address] Glucose [Mass/Vol] 137 mg/dL High 70-105 [facility] Comment on above: Order Comment: Waive d Testing in the ED is performed under the ED CLIA certificate #[id number]. Result Comment: [email or web address] Performed By: #### L [id number] ####[facility] ([facility])[address] [place] [address] Glucose [Mass/Vol] 145 mg/dL High 70-105 [facility] Comment on above: Order Comment: Waive d Testing in the ED is performed under the ED CLIA certificate #[id number]. Result Comment: [email or web address] Performed By: #### L [id number] ####[facility] ([facility])[address] [place] [address] 30on 12-22-2023 30 Normal [facility] BASIC METABOLIC PANELon 12-08 Anion gap [Moles/Vol] 7 mmol/L Normal 7-20 [facility] Comment on above: Performed By: #### L [id number] ####[facility] [place] [address] Calcium [Mass/Vol] 8.4 mg/dL Low 8.6-10.3 [facility] Comment on above: Performed By: #### L [id number] ####[facility] [place] [address] Chloride [Moles/Vol] 102 mmol/L Normal 98-107 [facility] Comment on above: Performed By: #### L [id number] ####[facility] ([employer])[address] [place] [address] CO2 [Moles/Vol] 27 mmol/L Normal 21-31 [facility] Comment on above: Performed By: #### L [id number] ####[facility] ([facility])[address] [place] [address] Creatinine [Mass/Vol] 0.39 mg/dL Low 0.70-1.30 [facility] Comment on above: Performed By: #### L [id number] ####[facility] ([facility])[address] [place] [address] GLOMERULAR FILTRATION RATE ML/MIN/1.73 SQ M.PREDICTED 113.2 mL/min/1.73m*2 Normal >60.0 [facility] Comment on above: Result Comment: [facility]???s estimated glomerular filtration rate (eGFR) will [...] of individuals. Performed By: #### L [id number] ####[facility] ([facility])[address] [place] [address] Glucose [Mass/Vol] 121 mg/dL High 70-100 [facility] Comment on above: Performed By: #### L [id number] ####[facility] ([facility])[address] [place] [address] Potassium [Moles/Vol] 4.0 mmol/L Normal 3.5-5.1 [facility] Comment on above: Performed By: #### L [id number] ####[facility] ([facility])[address] [place] [address] Sodium [Moles/Vol] 132 mmol/L Low 136-145 [facility] Comment on above: Performed By: #### L [id number] ####[facility] ([facility])[address] [place] [address] Urea nitrogen [Mass/Vol] 11 mg/dL Normal 7-25 [facility] Comment on above: Performed By: #### L [id number] ####[facility] ([facility])[address] [place] [address] UREA NITROGEN/CREATININE (MASS RATIO) IN SER/PLAS 28.2 Normal [facility] Comment on above: Performed By: #### L [id number] ####[facility] [place] [place] [address] CBCon 12-22-2023 Erythrocyte distribution width (RBC) [Ratio] 18.4 % High 11.5-15.0 [facility] Comment on above: Performed By: #### L [id number] ####[facility] ([facility])[address] [place] [address] ERYTHROCYTE MEAN CORPUSCULAR HEMOGLOBIN CONCENTRATION (G/DL) BY AUTOMATED 31.0 g/dL Low 32.0-35.0 [facility] Comment on above: Performed By: #### L [id number] ####[facility] [place] [address] Hematocrit (Bld) [Volume fraction] 24.2 % Low 39.0-55.0 [facility] Comment on above: Performed By: #### L [id number] ####[facility])[address] [place] [address] Hemoglobin (Bld) [Mass/Vol] 7.5 g/dL Low 13.0-17.0 [facility] Comment on above: Performed By: #### L [id number] ####[facility])[address] [place] [address] MCH (RBC) [Entitic mass] 27.6 pg Normal 27.0-33.0 [facility] Comment on above: Performed By: #### L [id number] ####[facility] ([facility])[address] [place] [address] MCV (RBC) [Entitic vol] 89.0 fL Normal 82.0-98.0 [facility] Comment on above: Performed By: #### L [id number] ####[facility] ([facility])[address] [place] [address] PLATELETS (10*3/UL) IN BLOOD AUTOMATED COUNT 154 10*3/uL Normal 150-400 [facility] Comment on above: Performed By: #### L [id number] ####[facility] ([facility])[address] [place] [address] RBC (Bld) [#/Vol] 2.72 10*6/uL Low 4.20-5.70 [facility] Comment on above: Performed By: #### L [id number] ####[facility] ([facility])[address] [place] [address] WBC (Bld) [#/Vol] 7.36 10*3/uL Normal 4.00-10.60 [facility] Comment on above: Performed By: #### L [id number] ####[facility] ([facility])[address] [place] [address] CONSULTon 12-22-2023 CONSULT Normal [facility] HEMOGLOBIN A1Con 12-22-2023 Glucose [Mass/Vol] 105 mg/dL Normal [facility] Comment on above: Performed By: #### L [id number] ####[facility] ([facility])[address] [place] [address] HbA1c (Bld) [Mass fraction] 5.3 % Normal 4.0-6.0 [facility] Comment on above: Performed By: #### L [id number] ####[facility] ([facility])[address] [place] [address] LACTIC ACID WITH 4 HOUR REFL EXon 12-22-2023 LACTATE (MMOL/L) IN SER/PLAS 0.8 mmol/L Normal 0.5-2.2 [facility] Comment on above: Performed By: #### L [id number] ####[facility] ([facility])[address] [place] [address] MAGNESIUMon 12-22-2023 Magnesium [Mass/Vol] 1.7 mg/dL Low 1.9-2.7 [facility] Comment on above: Performed By: #### L [id number] ####[facility] ([facility])[address] [place] [address] PHOSPHORUSon 12-22-2023 Magnesium [Mass/Vol] 3.7 mg/dL Normal 2.5-5.0 [facility] Comment on above: Performed By: #### L [id number] ####[facility] ([facility])[address] [place] [address] POCT GLUCOSE METER UNSOLICIT ED RESULTSon 12-22-2023 Glucose [Mass/Vol] 121 mg/dL High 70-105 [facility] Comment on above: Order Comment: Waive d Testing in the ED is performed under the ED CLIA certificate #[id number]. Result Comment: [email or web address] Performed By: #### L [id number] ####[facility] ([facility])[address] [place] [address] Glucose [Mass/Vol] 170 mg/dL High 70-105 [facility] Comment on above: Order Comment: Waive d Testing in the ED is performed under the ED CLIA certificate #[id number]. Result Comment: [email or web address] Performed By: #### L [id number] ####[facility] ([facility])[address] [place] [address] Glucose [Mass/Vol] 163 mg/dL High 70-105 [facility] Comment on above: Order Comment: Waive d Testing in the ED is performed under the ED CLIA certificate #[id number]. Result Comment: [email or web address] Performed By: #### L [id number] ####[facility] ([facility])[address] [place] [address] Glucose [Mass/Vol] 136 mg/dL High 70-105 [facility] Comment on above: Order Comment: Waive d Testing in the ED is performed under the ED CLIA certificate #[id number]. Result Comment: [email or web address] Performed By: #### L [id number] ####[facility] [place] [address] ANESon 12-21-2023 ANES Normal [facility] ANES Normal [facility] APTTon 12-21-2023 ACTIVATED PARTIAL THROMBOPLASTIN TIME IN PPP BY COAGULATION ASSAY 37.6 Seconds High 25.0-35.0 [facility] Comment on above: Result Comment: Clin ical significance of the APTT is questionable in the presence of heparin. Performed By: #### L [id number] ####[facility] ([facility])[address] [place] [address] BASIC METABOLIC PANELon 12-08 Anion gap [Moles/Vol] 6 mmol/L Low 7-20 [facility] Comment on above: Performed By: #### L [id number] ####[facility] ([facility])[address] [place] [address] Calcium [Mass/Vol] 8.1 mg/dL Low 8.6-10.3 [facility] Comment on above: Performed By: #### L [id number] ####[facility] [place] [address] Chloride [Moles/Vol] 102 mmol/L Normal 98-107 [facility] Comment on above: Performed By: #### L [id number] ####[facility])[address] [place] [address] CO2 [Moles/Vol] 30 mmol/L Normal 21-31 [facility] Comment on above: Performed By: #### L [id number] ####[facility] ([facility])[address] [place] [address] Creatinine [Mass/Vol] 0.40 mg/dL Low 0.70-1.30 [facility] Comment on above: Performed By: #### L [id number] ####[facility] ([facility])[address] [place] [address] GLOMERULAR FILTRATION RATE ML/MIN/1.73 SQ M.PREDICTED 112.4 mL/min/1.73m*2 Normal >60.0 [facility] Comment on above: Result Comment: [facility]???s estimated glomerular filtration rate (eGFR) will [...] of individuals. Performed By: #### L [id number] ####[facility] ([facility])[address] [place] [address] Glucose [Mass/Vol] 187 mg/dL High 70-100 [facility] Comment on above: Performed By: #### L [id number] ####[facility] ([facility])[address] [place] [address] Potassium [Moles/Vol] 3.9 mmol/L Normal 3.5-5.1 [facility] Comment on above: Performed By: #### L [id number] ####[facility] ([facility])[address] [place] [address] Sodium [Moles/Vol] 134 mmol/L Low 136-145 [facility] Comment on above: Performed By: #### L [id number] ####[facility] [facility] [address] Urea nitrogen [Mass/Vol] 11 mg/dL Normal 7-25 [facility] Comment on above: Performed By: #### L [id number] ####[facility] [facility] [place] [address] UREA NITROGEN/CREATININE (MASS RATIO) IN SER/PLAS 27.5 Normal [facility] Comment on above: Performed By: #### L [id number] ####[facility] ([facility])[address] [place] [address] CBCon 12-21-2023 Erythrocyte distribution width (RBC) [Ratio] 18.2 % High 11.5-15.0 [facility] Comment on above: Performed By: #### L [id number] ####[facility] ([facility])[address] [place] [address] ERYTHROCYTE MEAN CORPUSCULAR HEMOGLOBIN CONCENTRATION (G/DL) BY AUTOMATED 30.2 g/dL Low 32.0-35.0 [facility] Comment on above: Performed By: #### L [id number] ####[facility] ([facility])[address] [place] [address] Hematocrit (Bld) [Volume fraction] 29.1 % Low 39.0-55.0 [facility] Comment on above: Performed By: #### L [id number] ####[facility] ([facility])[address] [place] [address] Hemoglobin (Bld) [Mass/Vol] 8.8 g/dL Low 13.0-17.0 [facility] Comment on above: Performed By: #### L [id number] ####[facility] ([facility])[address] [place] [address] MCH (RBC) [Entitic mass] 27.2 pg Normal 27.0-33.0 [facility] Comment on above: Performed By: #### L [id number] ####[facility] ([facility])[address] [place] [address] MCV (RBC) [Entitic vol] 90.1 fL Normal 82.0-98.0 [facility] Comment on above: Performed By: #### L [id number] ####[facility] [place] [address] PLATELETS (10*3/UL) IN BLOOD AUTOMATED COUNT [id number] 10*3/uL Normal 150-400 [facility] Comment on above: Performed By: #### L [id number] ####[facility] [place] [address] RBC (Bld) [#/Vol] 3.23 10*6/uL Low 4.20-5.70 [facility] Comment on above: Performed By: #### L [id number] ####[facility] [place] [address] WBC (Bld) [#/Vol] 6.24 10*3/uL Normal 4.00-10.60 [facility] Comment on above: Performed By: #### L [id number] ####[facility])[address] [place] [address] HPon 12-21-2023 HP Normal [facility] Labon 12-21-2023 Lab Normal [facility] MRSA/MSSA DNA NASALon 2023 MRSA DNA Negative Normal Negative [facility] Comment on above: Order Comment: Testi [...] preclude nasal colonization. Performed By: #### L [id number] ####[facility] [place] [address] MSSA DNA Negative Normal Negative [facility] Comment on above: Order Comment: Testi [...] preclude nasal colonization. Performed By: #### L [id number] ####[facility] [place] [address] NURSNOTEon 12-21-2023 NURSNOTE Patient arrived [facility]. Stable with No complaints. Call light in reach. Dinner ordered. Normal [facility] OPNOTEon 12-21-2023 OPNOTE Normal [facility] POCT GLUCOSE METER UNSOLICIT ED RESULTSon 12-21-2023 Glucose [Mass/Vol] 99 mg/dL Normal 70-105 [facility] Comment on above: Order Comment: Waive d Testing in the ED is performed under the ED CLIA certificate #[id number]. Result Comment: manny nugent Performed By: #### L [id number] ####[facility])[address] [place] [address] Glucose [Mass/Vol] 99 mg/dL Normal 70-105 [facility] Comment on above: Order Comment: Waive d Testing in the ED is performed under the ED CLIA certificate #[id number]. Result Comment: [email or web address] Performed By: #### L [id number] ####[facility])[address] [place] [address] Glucose [Mass/Vol] 164 mg/dL High 70-105 [facility] Comment on above: Order Comment: Waive d Testing in the ED is performed under the ED CLIA certificate #[id number]. Result Comment: acle ment Performed By: #### L [id number] ####[facility])[address] [place] [address] PROTIME-INRon 12-21-2023 INR IN PPP BY COAGULATION ASSAY 1.20 High 0.90-1.10 [facility] Comment on above: Result Comment: ACCC [...] CHEST 1995;108:231S-246S. Performed By: #### L [id number] ####[facility] ([facility])[address] [place] [address] PROTHROMBIN TIME (PT) IN PPP BY COAGULATION ASSAY 15.2 Seconds High 12.3-14.8 [facility] Comment on above: Performed By: #### L [id number] ####[facility] ([facility])[address] [place] [address] TYPE AND SCREENon 12-21-2023 AB SCREEN Negative [facility] Comment on above: Performed By: #### L [id number] ####[facility], ABO group Nom (Bld) O Normal [facility] Comment on above: Performed By: #### L [id number] ####[facility], RH TYPE IN BLOOD Positive Normal [facility] Comment on above: Performed By: #### L [id number] ####[facility], Orders Onlyon 12-19-2023 Orders Only Normal [facility] Prep for Procedureon 024 Prep for Procedure Normal [facility] Follow-Upon 12-16-2023 Follow-Up Normal [facility] 36on 12-07-2023 36 Critical lab - Hgb - 6.8, Hematocrit - 22.8. ZOEY Mendes notified and contacted patient. Normal [facility] Documentationon 12-07-2023 Documentation [facility] Orders Onlyon 12-07-2023 Orders Only [facility] Orders Onlyon 12-05-2023 Orders Only [facility] Telemedicineon 12-01-2023 Telemedicine [facility] Follow-Upon 11-30-2023 Follow-Up [facility] 36on 11-28-2023 36 Confirmed appointmen t change with spouse. She voiced understanding. [facility] 36 Patient is currently scheduled in person on 12/01/23. Please respond. [facility] 36on 11-24-2023 36 Patient is currently at [facility]. Dr. Gian Horta is following the patient in Rehab. Patients Ijeoma is requesting a virtual appointment due to patient recovery post leg amputation. Please Advise. [facility] Telephoneon 11-24-2023 Telephone [facility] BASIC METABOLIC PANELon 11-10 Anion gap [Moles/Vol] 12 mmol/L Normal 7-20 [facility] Comment on above: Performed By: #### L [id number] ####[facility] [place] [address] Calcium [Mass/Vol] 7.7 mg/dL Low 8.6-10.3 [facility] Comment on above: Performed By: #### L [id number] ####[facility])[address] [place] [address] Chloride [Moles/Vol] 98 mmol/L Normal 98-107 [facility] Comment on above: Performed By: #### L [id number] ####[facility] [place] [address] CO2 [Moles/Vol] 26 mmol/L Normal 21-31 [facility] Comment on above: Performed By: #### L [id number] ####[facility])[address] [place] [address] Creatinine [Mass/Vol] 0.37 mg/dL Low 0.70-1.30 [facility] Comment on above: Performed By: #### L [id number] ####[facility])[address] [place] [address] GLOMERULAR FILTRATION RATE ML/MIN/1.73 SQ M.PREDICTED 115.8 mL/min/1.73m*2 Normal >60.0 [facility] Comment on above: Result Comment: [facility]???s estimated glomerular filtration rate (eGFR) will [...] of individuals. Performed By: #### L [id number] ####[facility])[address] [place] [address] Glucose [Mass/Vol] 103 mg/dL High 70-100 [facility] Comment on above: Performed By: #### L [id number] ####[facility])[address] [place] [address] Potassium [Moles/Vol] 3.9 mmol/L Normal 3.5-5.1 [facility] Comment on above: Performed By: #### L [id number] ####[facility])[address] [place] [address] Sodium [Moles/Vol] 132 mmol/L Low 136-145 [facility] Comment on above: Performed By: #### L [id number] ####[facility] [facility] [place] [address] Urea nitrogen [Mass/Vol] 6 mg/dL Low 7-25 [facility] Comment on above: Performed By: #### L [id number] ####[facility])[address] [place] [address] UREA NITROGEN/CREATININE (MASS RATIO) IN SER/PLAS 16.2 Normal [facility] Comment on above: Performed By: #### L [id number] ####[facility])[address] [place] [address] CBC WITH AUTO DIFFERENTIALon 11-21-2023 Basophils (Bld) [#/Vol] 0.01 10*3/uL Normal 0.00-0.20 [facility] Comment on above: Performed By: #### L [id number] ####[facility])[address] [place] [address] Basophils/100 WBC (Bld) 0.2 % Normal 0.0-1.0 [facility] Comment on above: Performed By: #### L [id number] ####[facility])[address] [place] [address] Eosinophils (Bld) [#/Vol] 0.01 10*3/uL Normal 0.00-0.50 [facility] Comment on above: Performed By: #### L [id number] ####[facility])[address] [place] [address] Eosinophils/100 WBC (Bld) 0.2 % Normal 0.0-6.0 [facility] Comment on above: Performed By: #### L [id number] ####[facility])[address] [place] [address] Erythrocyte distribution width (RBC) [Ratio] 17.0 % High 11.5-15.0 [facility] Comment on above: Performed By: #### L [id number] ####[facility])[address] [place] [address] ERYTHROCYTE MEAN CORPUSCULAR HEMOGLOBIN CONCENTRATION (G/DL) BY AUTOMATED 31.6 g/dL Low 32.0-35.0 [facility] Comment on above: Performed By: #### L [id number] ####[facility] [place] [address] Hematocrit (Bld) [Volume fraction] 25.6 % Low 39.0-55.0 [facility] Comment on above: Performed By: #### L [id number] ####[facility])[address] [place] [address] Hemoglobin (Bld) [Mass/Vol] 8.1 g/dL Low 13.0-17.0 [facility] Comment on above: Performed By: #### L [id number] ####[facility])[address] [place] [address] Immature granulocytes (Bld) [#/Vol] 0.03 10*3/uL Normal 0.00-0.20 [facility] Comment on above: Performed By: #### L [id number] ####[facility])[address] [place] [address] Immature granulocytes/100 WBC (Bld) 0.5 % Normal 0.0-1.0 [facility] Comment on above: Performed By: #### L [id number] ####[facility])[address] [place] [address] Lymphocytes (Bld) [#/Vol] 0.34 10*3/uL Low 1.20-4.00 [facility] Comment on above: Performed By: #### L [id number] ####[facility] ([facility])[address] [place] [address] Lymphocytes/100 WBC (Bld) 5.9 % Low 20.0-45.0 [facility] Comment on above: Performed By: #### L [id number] ####[facility] ([facility])[address] [place] [address] MCH (RBC) [Entitic mass] 26.7 pg Low 27.0-33.0 [facility] Comment on above: Performed By: #### L [id number] ####[facility])[address] [place] [address] MCV (RBC) [Entitic vol] 84.5 fL Normal 82.0-98.0 [facility] Comment on above: Performed By: #### L [id number] ####[facility] ([facility])[address] [place] [address] Monocytes (Bld) [#/Vol] 0.74 10*3/uL Normal 0.10-1.00 [facility] Comment on above: Performed By: #### L [id number] ####[facility])[address] [place] [address] Monocytes/100 WBC (Bld) 12.8 % High 5.0-12.0 [facility] Comment on above: Performed By: #### L [id number] ####[facility])[address] [place] [address] Neutrophils (Bld) [#/Vol] 4.66 10*3/uL Normal 1.60-7.60 [facility] Comment on above: Performed By: #### L [id number] ####[facility])[address] [place] [address] Neutrophils/100 WBC (Bld) 80.4 % High 40.0-72.0 [facility] Comment on above: Performed By: #### L [id number] ####[facility])[address] [place] [address] NRBC (PER 100 WBCS) BY AUTOMATED COUNT 0.0 % Normal 0 [facility] Comment on above: Performed By: #### L [id number] ####[facility])[address] [place] [address] PLATELETS (10*3/UL) IN BLOOD AUTOMATED COUNT 172 10*3/uL Normal 150-400 [facility] Comment on above: Performed By: #### L [id number] ####[facility])[address] [place] [address] RBC (Bld) [#/Vol] 3.03 10*6/uL Low 4.20-5.70 [facility] Comment on above: Performed By: #### L [id number] ####[facility] ([facility])[address] [place] [address] WBC (Bld) [#/Vol] 5.79 10*3/uL Normal 4.00-10.60 [facility] Comment on above: Performed By: #### L [id number] ####[facility])[address] [place] [address] CONSULTon 11-21-2023 CONSULT Normal [facility] DSon 11-21-2023 DS Normal [facility] HEPATIC FUNCTION PANELon Albumin [Mass/Vol] 2.4 g/dL Low 3.5-5.7 [facility] Comment on above: Performed By: #### L [id number] ####[facility])[address] [place] [address] ALP [Catalytic activity/Vol] 215 U/L High 34-104 [facility] Comment on above: Performed By: #### L [id number] ####[facility] ([facility])[address] [place] [address] ALT [Catalytic activity/Vol] 147 U/L High 7-52 [facility] Comment on above: Performed By: #### L [id number] ####[facility])[address] [place] [address] AST [Catalytic activity/Vol] 110 U/L High 13-39 [facility] Comment on above: Performed By: #### L [id number] ####[facility])[address] [place] [address] Bilirubin [Mass/Vol] 0.8 mg/dL Normal 0.3-1.0 [facility] Comment on above: Performed By: #### L [id number] ####[facility] ([facility])[address] [place] [address] Magnesium [Mass/Vol] 0.6 mg/dL High 0-0.2 [facility] Comment on above: Performed By: #### L [id number] ####[facility] ([facility])[address] [place] [address] Protein [Mass/Vol] 6.3 g/dL Normal 6.0-8.3 [facility] Comment on above: Performed By: #### L [id number] ####[facility])[address] [place] [address] POCT GLUCOSE METER UNSOLICIT ED RESULTSon 11-21-2023 Glucose [Mass/Vol] 192 mg/dL High 70-105 [facility] Comment on above: Order Comment: Waive d Testing in the ED is performed under the ED CLIA certificate #[id number]. Result Comment: sbel air Performed By: #### L [id number] ####[facility])[address] [place] [address] Glucose [Mass/Vol] 155 mg/dL High 70-105 [facility] Comment on above: Order Comment: Waive d Testing in the ED is performed under the ED CLIA certificate #[id number]. Result Comment: wwar rad Performed By: #### L [id number] ####[facility])[address] [place] [address] Glucose [Mass/Vol] 108 mg/dL High 70-105 [facility] Comment on above: Order Comment: Waive d Testing in the ED is performed under the ED CLIA certificate #[id number]. Result Comment: [email or web address] [email or web address] Performed By: #### L [id number] ####[facility])[address] [place] [address] Glucose [Mass/Vol] 115 mg/dL High 70-105 [facility] Comment on above: Order Comment: Waive d Testing in the ED is performed under the ED CLIA certificate #[id number]. Result Comment: mcas tor Performed By: #### L [id number] ####[facility])[address] [place] [address] PROTIME-INRon 11-21-2023 INR IN PPP BY COAGULATION ASSAY 1.40 High 0.90-1.10 [facility] Comment on above: Result Comment: ACCC [...] CHEST 1995;108:231S-246S. Performed By: #### L [id number] ####[facility] [place] [address] PROTHROMBIN TIME (PT) IN PPP BY COAGULATION ASSAY 17.2 Seconds High 12.3-14.8 [facility] Comment on above: Performed By: #### L [id number] ####[facility] [place] [address] BASIC METABOLIC PANELon 11-10 Anion gap [Moles/Vol] 11 mmol/L Normal 7-20 [facility] Comment on above: Performed By: #### L [id number] ####[facility] [place] [address] Calcium [Mass/Vol] 7.8 mg/dL Low 8.6-10.3 [facility] Comment on above: Performed By: #### L [id number] ####[facility] [place] [address] Chloride [Moles/Vol] 101 mmol/L Normal 98-107 [facility] Comment on above: Performed By: #### L [id number] ####[facility])[address] [place] [address] CO2 [Moles/Vol] 24 mmol/L Normal 21-31 [facility] Comment on above: Performed By: #### L [id number] ####[facility])[address] [place] [address] Creatinine [Mass/Vol] 0.43 mg/dL Low 0.70-1.30 [facility] Comment on above: Performed By: #### L [id number] ####[facility])[address] [place] [address] GLOMERULAR FILTRATION RATE ML/MIN/1.73 SQ M.PREDICTED 110.6 mL/min/1.73m*2 Normal >60.0 [facility] Comment on above: Result Comment: [facility]???s estimated glomerular filtration rate (eGFR) will [...] of individuals. Performed By: #### L [id number] ####[facility])[address] [place] [address] Glucose [Mass/Vol] 104 mg/dL High 70-100 [facility] Comment on above: Performed By: #### L [id number] ####[facility])[address] [place] [address] Potassium [Moles/Vol] 3.7 mmol/L Normal 3.5-5.1 [facility] Comment on above: Performed By: #### L [id number] ####[facility] ([facility])[address] [place] [address] Sodium [Moles/Vol] 132 mmol/L Low 136-145 [facility] Comment on above: Performed By: #### L [id number] ####[facility] [place] [address] Urea nitrogen [Mass/Vol] 9 mg/dL Normal 7-25 [facility] Comment on above: Performed By: #### L [id number] ####[facility])[address] [place] [address] UREA NITROGEN/CREATININE (MASS RATIO) IN SER/PLAS 20.9 Normal [facility] Comment on above: Performed By: #### L [id number] ####[facility] [place] [address] CBC WITH AUTO DIFFERENTIALon 11-20-2023 Basophils (Bld) [#/Vol] 0.02 10*3/uL Normal 0.00-0.20 [facility] Comment on above: Performed By: #### L [id number] ####[facility] [place] [address] Basophils/100 WBC (Bld) 0.5 % Normal 0.0-1.0 [facility] Comment on above: Performed By: #### L [id number] ####[facility] [place] [address] Eosinophils (Bld) [#/Vol] 0.02 10*3/uL Normal 0.00-0.50 [facility] Comment on above: Performed By: #### L [id number] ####[facility])[address] [place] [address] Eosinophils/100 WBC (Bld) 0.5 % Normal 0.0-6.0 [facility] Comment on above: Performed By: #### L [id number] ####[facility])[address] [place] [address] Erythrocyte distribution width (RBC) [Ratio] 17.1 % High 11.5-15.0 [facility] Comment on above: Performed By: #### L [id number] ####[facility] [place] [address] ERYTHROCYTE MEAN CORPUSCULAR HEMOGLOBIN CONCENTRATION (G/DL) BY AUTOMATED 31.6 g/dL Low 32.0-35.0 [facility] Comment on above: Performed By: #### L [id number] ####[facility])[address] [place] [address] Hematocrit (Bld) [Volume fraction] 22.8 % Low 39.0-55.0 [facility] Comment on above: Performed By: #### L [id number] ####[facility])[address] [place] [address] Hemoglobin (Bld) [Mass/Vol] 7.2 g/dL Low 13.0-17.0 [facility] Comment on above: Performed By: #### L [id number] ####[facility])[address] [place] [address] Immature granulocytes (Bld) [#/Vol] 0.05 10*3/uL Normal 0.00-0.20 [facility] Comment on above: Performed By: #### L [id number] ####[facility])[address] [place] [address] Immature granulocytes/100 WBC (Bld) 1.2 % High 0.0-1.0 [facility] Comment on above: Performed By: #### L [id number] ####[facility] ([facility])[address] [place] [address] Lymphocytes (Bld) [#/Vol] 0.32 10*3/uL Low 1.20-4.00 [facility] Comment on above: Performed By: #### L [id number] ####[facility])[address] [place] [address] Lymphocytes/100 WBC (Bld) 7.4 % Low 20.0-45.0 [facility] Comment on above: Performed By: #### L [id number] ####[facility] [place] [address] MCH (RBC) [Entitic mass] 26.6 pg Low 27.0-33.0 [facility] Comment on above: Performed By: #### L [id number] ####[facility] [place] [address] MCV (RBC) [Entitic vol] 84.1 fL Normal 82.0-98.0 [facility] Comment on above: Performed By: #### L [id number] ####[facility] [place] [address] Monocytes (Bld) [#/Vol] 0.39 10*3/uL Normal 0.10-1.00 [facility] Comment on above: Performed By: #### L [id number] ####[facility] [place] [address] Monocytes/100 WBC (Bld) 9.1 % Normal 5.0-12.0 [facility] Comment on above: Performed By: #### L [id number] ####[facility])[address] [place] [address] Neutrophils (Bld) [#/Vol] 3.50 10*3/uL Normal 1.60-7.60 [facility] Comment on above: Performed By: #### L [id number] ####[facility])[address] [place] [address] Neutrophils/100 WBC (Bld) 81.3 % High 40.0-72.0 [facility] Comment on above: Performed By: #### L [id number] ####[facility])[address] [place] [address] NRBC (PER 100 WBCS) BY AUTOMATED COUNT 0.0 % Normal 0 [facility] Comment on above: Performed By: #### L [id number] ####[facility] [place] [address] PLATELETS (10*3/UL) IN BLOOD AUTOMATED COUNT 168 10*3/uL Normal 150-400 [facility] Comment on above: Performed By: #### L [id number] ####[facility])[address] [place] [address] RBC (Bld) [#/Vol] 2.71 10*6/uL Low 4.20-5.70 [facility] Comment on above: Performed By: #### L [id number] ####[facility] [place] [address] WBC (Bld) [#/Vol] 4.30 10*3/uL Normal 4.00-10.60 [facility] Comment on above: Performed By: #### L [id number] ####[facility] [place] [address] HEPATIC FUNCTION PANELon Albumin [Mass/Vol] 2.4 g/dL Low 3.5-5.7 [facility] Comment on above: Performed By: #### L [id number] ####[facility])[address] [place] [address] ALP [Catalytic activity/Vol] 201 U/L High 34-104 [facility] Comment on above: Performed By: #### L [id number] ####[facility] [place] [address] ALT [Catalytic activity/Vol] 160 U/L High 7-52 [facility] Comment on above: Performed By: #### L [id number] ####[facility] [place] [address] AST [Catalytic activity/Vol] 107 U/L High 13-39 [facility] Comment on above: Performed By: #### L [id number] ####[facility] [place] [address] Bilirubin [Mass/Vol] 0.5 mg/dL Normal 0.3-1.0 [facility] Comment on above: Performed By: #### L [id number] ####[facility] [place] [address] Magnesium [Mass/Vol] 0.3 mg/dL High 0-0.2 [facility] Comment on above: Performed By: #### L [id number] ####[facility])[address] [place] [address] Protein [Mass/Vol] 6.1 g/dL Normal 6.0-8.3 [facility] Comment on above: Performed By: #### L [id number] ####[facility])[address] [place] [address] POCT GLUCOSE METER UNSOLICIT ED RESULTSon 11-20-2023 Glucose [Mass/Vol] 96 mg/dL Normal 70-105 [facility] Comment on above: Order Comment: Waive d Testing in the ED is performed under the ED CLIA certificate #[id number]. Result Comment: [email or web address] Performed By: #### L [id number] ####[facility])[address] [place] [address] Glucose [Mass/Vol] 124 mg/dL High 70-105 [facility] Comment on above: Order Comment: Waive d Testing in the ED is performed under the ED CLIA certificate #[id number]. Result Comment: [email or web address] Performed By: #### L [id number] ####[facility])[address] [place] [address] Glucose [Mass/Vol] 105 mg/dL Normal 70-105 [facility] Comment on above: Order Comment: Waive d Testing in the ED is performed under the ED CLIA certificate #[id number]. Result Comment: [email or web address] Performed By: #### L [id number] ####[facility] [address] TRANSFUSION REACTION EVALUAT IONon 11-20-2023 ABO GROUP (TYPE) IN BLOOD O [facility] [facility] Comment on above: Order Comment: Obtai n one Redtop and one Lavender Top. Send with Blood Bag and Infusion set to Blood Bank Performed By: #### L [id number] ####[facility], ANTI C3 LD Negative [facility] Comment on above: Order Comment: Obtai n one Redtop and one Lavender Top. Send with Blood Bag and Infusion set to Blood Bank Performed By: #### L [id number] ####[facility], ANTI IGG LD Negative [facility] Comment on above: Order Comment: Obtai n one Redtop and one Lavender Top. Send with Blood Bag and Infusion set to Blood Bank Performed By: #### L [id number] ####[facility], RH TYPE IN BLOOD Positive [facility] Comment on above: Order Comment: Obtai n one Redtop and one Lavender Top. Send with Blood Bag and Infusion set to Blood Bank Performed By: #### L [id number] ####[facility], TRANSFUSION REACTION EVALUATION FEBRILE [facility] Comment on above: Order Comment: Obtai n one Redtop and one Lavender Top. Send with Blood Bag and Infusion set to Blood Bank Performed By: #### L [id number] ####[facility], 30on 11-19-2023 30 Normal [facility] BASIC METABOLIC PANELon 11-10 Anion gap [Moles/Vol] 10 mmol/L Normal 7-20 [facility] Comment on above: Performed By: #### L [id number] ####[facility] ([facility]AKER)[address] [facility] [address] Calcium [Mass/Vol] 7.8 mg/dL Low 8.6-10.3 [facility] Comment on above: Performed By: #### L [id number] ####[facility] (BEAKER)[address] [place] [address] Chloride [Moles/Vol] 100 mmol/L Normal 98-107 [facility] Comment on above: Performed By: #### L [id number] ####[facility] ([facility])[address] [place] [address] CO2 [Moles/Vol] 25 mmol/L Normal 21-31 [facility] Comment on above: Performed By: #### L [id number] ####[facility] ([facility])[address] [place] [address] Creatinine [Mass/Vol] 0.36 mg/dL Low 0.70-1.30 [facility] Comment on above: Performed By: #### L [id number] ####[facility] ([facility])[address] [place] [address] GLOMERULAR FILTRATION RATE ML/MIN/1.73 SQ M.PREDICTED 116.7 mL/min/1.73m*2 Normal >60.0 [facility] Comment on above: Result Comment: [facility]???s estimated glomerular filtration rate (eGFR) will [...] of individuals. Performed By: #### L [id number] ####[facility] ([facility])[address] [place] [address] Glucose [Mass/Vol] 104 mg/dL High 70-100 [facility] Comment on above: Performed By: #### L [id number] ####[facility] ([facility])[address] [place] [address] Potassium [Moles/Vol] 3.7 mmol/L Normal 3.5-5.1 [facility] Comment on above: Performed By: #### L [id number] ####[facility] [place] [address] Sodium [Moles/Vol] 131 mmol/L Low 136-145 [facility] Comment on above: Performed By: #### L [id number] ####[facility])[address] [place] [address] Urea nitrogen [Mass/Vol] 8 mg/dL Normal 7-25 [facility] Comment on above: Performed By: #### L [id number] ####[facility])[address] [place] [address] UREA NITROGEN/CREATININE (MASS RATIO) IN SER/PLAS 22.2 Normal [facility] Comment on above: Performed By: #### L [id number] ####[facility] ([facility])[address] [place] [address] CBC WITH AUTO DIFFERENTIALon 11-19-2023 Basophils (Bld) [#/Vol] 0.03 10*3/uL Normal 0.00-0.20 [facility] Comment on above: Performed By: #### L [id number] ####[facility])[address] [place] [address] Basophils/100 WBC (Bld) 0.6 % Normal 0.0-1.0 [facility] Comment on above: Performed By: #### L [id number] ####[facility])[address] [place] [address] Eosinophils (Bld) [#/Vol] 0.01 10*3/uL Normal 0.00-0.50 [facility] Comment on above: Performed By: #### L [id number] ####[facility] [place] [address] Eosinophils/100 WBC (Bld) 0.2 % Normal 0.0-6.0 [facility] Comment on above: Performed By: #### L [id number] ####[facility])[address] [place] [address] Erythrocyte distribution width (RBC) [Ratio] 16.9 % High 11.5-15.0 [facility] Comment on above: Performed By: #### L [id number] ####[facility] ([facility]ER)[address] [place] [address] ERYTHROCYTE MEAN CORPUSCULAR HEMOGLOBIN CONCENTRATION (G/DL) BY AUTOMATED 31.6 g/dL Low 32.0-35.0 [facility] Comment on above: Performed By: #### L [id number] ####[facility] ([facility])[address] [place] [address] Hematocrit (Bld) [Volume fraction] 25.6 % Low 39.0-55.0 [facility] Comment on above: Performed By: #### L [id number] ####[facility] ([facility])[address] [place] [address] Hemoglobin (Bld) [Mass/Vol] 8.1 g/dL Low 13.0-17.0 [facility] Comment on above: Performed By: #### L [id number] ####[facility] ([facility])[address] [place] [address] Immature granulocytes (Bld) [#/Vol] 0.04 10*3/uL Normal 0.00-0.20 [facility] Comment on above: Performed By: #### L [id number] ####[facility] ([facility])[address] [place] [address] Immature granulocytes/100 WBC (Bld) 0.8 % Normal 0.0-1.0 [facility] Comment on above: Performed By: #### L [id number] ####[facility] ([facility])[address] [place] [address] Lymphocytes (Bld) [#/Vol] 0.37 10*3/uL Low 1.20-4.00 [facility] Comment on above: Performed By: #### L [id number] ####[facility] ([facility])[address] [place] [address] Lymphocytes/100 WBC (Bld) 7.2 % Low 20.0-45.0 [facility] Comment on above: Performed By: #### L [id number] ####[facility])[address] [place] [address] MCH (RBC) [Entitic mass] 26.1 pg Low 27.0-33.0 [facility] Comment on above: Performed By: #### L [id number] ####[facility] ([facility])[address] [place] [address] MCV (RBC) [Entitic vol] 82.6 fL Normal 82.0-98.0 [facility] Comment on above: Performed By: #### L [id number] ####[facility] ([facility])[address] [place] [address] Monocytes (Bld) [#/Vol] 0.54 10*3/uL Normal 0.10-1.00 [facility] Comment on above: Performed By: #### L [id number] ####[facility])[address] [place] [address] Monocytes/100 WBC (Bld) 10.5 % Normal 5.0-12.0 [facility] Comment on above: Performed By: #### L [id number] ####[facility])[address] [place] [address] Neutrophils (Bld) [#/Vol] 4.13 10*3/uL Normal 1.60-7.60 [facility] Comment on above: Performed By: #### L [id number] ####[facility] ([facility])[address] [place] [address] Neutrophils/100 WBC (Bld) 80.7 % High 40.0-72.0 [facility] Comment on above: Performed By: #### L [id number] ####[facility] ([facility])[address] [place] [address] NRBC (PER 100 WBCS) BY AUTOMATED COUNT 0.0 % Normal 0 [facility] Comment on above: Performed By: #### L [id number] ####[facility] ([facility])[address] [place] [address] PLATELETS (10*3/UL) IN BLOOD AUTOMATED COUNT 205 10*3/uL Normal 150-400 [facility] Comment on above: Performed By: #### L [id number] ####[facility])[address] [place] [address] RBC (Bld) [#/Vol] 3.10 10*6/uL Low 4.20-5.70 [facility] Comment on above: Performed By: #### L [id number] ####[facility] ([facility])[address] [place] [address] WBC (Bld) [#/Vol] 5.12 10*3/uL Normal 4.00-10.60 [facility] Comment on above: Performed By: #### L [id number] ####[facility] ([facility])[address] [place] [address] NURSNOTEon 11-19-2023 NURSNOTE Normal [facility] POCT GLUCOSE METER UNSOLICIT ED RESULTSon 11-19-2023 Glucose [Mass/Vol] 157 mg/dL High 70-105 [facility] Comment on above: Order Comment: Waive d Testing in the ED is performed under the ED CLIA certificate #[id number]. Result Comment: [email or web address] Performed By: #### L [id number] ####[facility] ([facility])[address] [place] [address] Glucose [Mass/Vol] 127 mg/dL High 70-105 [facility] Comment on above: Order Comment: Waive d Testing in the ED is performed under the ED CLIA certificate #[id number]. Result Comment: [email or web address] [email or web address] Performed By: #### L [id number] ####[facility] ([facility])[address] [place] [address] Glucose [Mass/Vol] 112 mg/dL High 70-105 [facility] Comment on above: Order Comment: Waive d Testing in the ED is performed under the ED CLIA certificate #[id number]. Result Comment: [email or web address] Value Noted Performed By: #### L [id number] ####[facility] ([facility])[address] [place] [address] [id number] 11-18-2023 [id number] Normal [facility] 30on 11-18-2023 30 Normal [facility] AFP TUMOR MARKERon 4 ALPHA FETOPROTEIN TUMOR MARKER 2 ng/mL Normal 0-9 [facility] Comment on above: Result Comment: INTE RPRETIVE INFORMATION: Alpha Fetoprotein Tumor MarkerThe Daljit Lawrence Access DxI AFP method is used. Resultsobtained with different assay methods or kits cannot be usedinterchangeably. AFP is a valuable aid in the management ofnonseminomatous testicular cancer patients when used inconjunction with information available from the clinicalevaluation and other diagnostic procedures. Increased AFPconcentrations have also been observed in ataxia telangiectasia,hereditary tyrosinemia, primary hepatocellular carcinoma,teratocarcinoma, gastrointestinal tract cancers with and withoutliver metastases, and in benign hepatic conditions such as acuteviral hepatitis, chronic active hepatitis, and cirrhosis. Theresult cannot be interpreted as absolute evidence of the presenceor absence of malignant disease. The result is not interpretableas a tumor marker in females.Access complete set of age- and/or gender-specific referenceintervals for this test in the [facility] Directory([employer]).Performed By: [facility] [place], [place] [address]Tyrnoxccat Director: Dashawn Dumont MD, PhDCLIA Number: [id number] Performed By: #### L [id number] ####[facility] (CON[facility])[address] [place] [address] [id number] 2023 ALPHA-1 ANTITRYPSIN 333 mg/dL High 90-200 [facility] Comment on above: Result Comment: To c onvert to umol/L, multiply mg/dL by 0.185Performed By: [facility] [employer] [place], [place] [address]Ttfgwxmede Director: Dashawn Dumont MD, PhDCLIA Number: [id number] Performed By: #### L [id number] ####[facility] ([facility])[address] [place] [address] ANAon 11-18-2023 ALLYSSA TITER <1:40 Normal <=1:40 [facility] Comment on above: Result Comment: Test performed using STAR IFA ALLYSSA Hep-2 Test, a pre-standardized assay designed for the qualitative and semi-quantitative detection of antinuclear antibodies. Performed By: #### L [id number] ####[facility] ([facility])[address] [place] [address] ANESon 11-18-2023 ANE Normal [facility] ANE Normal [facility] ANTI-SMOOTH MUSCLE ANTIBODY TITERon 11-18-2023 SMOOTH MUSCLE AB, IGG TITER 1:80 High <1:20 [facility] Comment on above: Result Comment: INTE RPRETIVE INFORMATION: Smooth Muscle Ab, IgG Titer Less than 1:20 ........ Negative - No antibody detected. 1:20 - 1:80 .......... Weak Positive - Suggest repeat in two to three weeks with fresh specimen. 1:160 or greater ...... Positive - Suggestive of autoimmune hepatitis or chronic active hepatitis.Performed By: [facility] [employer] [place], [place] [address]Imbvaisgzn Director: Dashawn Dumont MD, PhDCLIA Number: [id number] Performed By: #### L [id number] ####[facility] ([facility])[address] [place] [address] ANTI-SMOOTH MUSCLE ANTIBODY, IGG WITH REFLEX TO TITERon 11-18-2023 SMOOTH MUSCLE ANTIBODY 20 Units High 0-19 [facility] Comment on above: Result Comment: REFE RENCE INTERVAL: F-Actin (Smooth Muscle) Antibody, IgG by MAURICE 19 Units or less ....... Negative 20 - 30 Units .......... Weak Positive-Suggest repeat testing in two to three weeks with fresh specimen. 31 Units or greater..... Positive-Suggestive of autoimmune hepatitis type 1 or chronic active hepatitis.F-actin IgG antibodies have been shown to have increasedsensitivity for autoimmune hepatitis (AIH) but lower specificitythan smooth muscle antibodies (SMA). F-actin IgG antibodies canalso be seen in SMA-negative disease controls (non-AIH),especially in patients with primary biliary cirrhosis and chronichepatitis C infections. Some patients with AIH may be SMA-positivebut negative for F-actin IgG. Consider testing for SMA by IFA ifsuspicion for AIH is strong.Performed By: [facility] [employer] [place], [place] [address]Egglchaaek Director: Dashawn Dumont MD, PhDCLIA Number: [id number] Performed By: #### L [id number] ####[facility] (BEAKER)[address] [place] [address] CBC WITH AUTO DIFFERENTIALon 11-18-2023 Basophils (Bld) [#/Vol] 0.02 10*3/uL Normal 0.00-0.20 [facility] Comment on above: Performed By: #### L [id number] ####[facility] ([facility])[address] [place] [address] Basophils/100 WBC (Bld) 0.2 % Normal 0.0-1.0 [facility] Comment on above: Performed By: #### L [id number] ####[facility] ([facility]ER)[address] [place] [address] Eosinophils (Bld) [#/Vol] 0.01 10*3/uL Normal 0.00-0.50 [facility] Comment on above: Performed By: #### L [id number] ####[facility] ([facility]ER)[address] [place] [address] Eosinophils/100 WBC (Bld) 0.1 % Normal 0.0-6.0 [facility] Comment on above: Performed By: #### L [id number] ####[facility] ([facility]ER)[address] [place] [address] Erythrocyte distribution width (RBC) [Ratio] 16.3 % High 11.5-15.0 [facility] Comment on above: Performed By: #### L [id number] ####[facility] ([facility]ER)[address] [place] [address] ERYTHROCYTE MEAN CORPUSCULAR HEMOGLOBIN CONCENTRATION (G/DL) BY AUTOMATED 32.1 g/dL Normal 32.0-35.0 [facility] Comment on above: Performed By: #### L [id number] ####[facility])[address] [place] [address] Hematocrit (Bld) [Volume fraction] 23.7 % Low 39.0-55.0 [facility] Comment on above: Performed By: #### L [id number] ####[facility] ([facility])[address] [place] [address] Hemoglobin (Bld) [Mass/Vol] 7.6 g/dL Low 13.0-17.0 [facility] Comment on above: Performed By: #### L [id number] ####[facility] ([facility])[address] [place] [address] Immature granulocytes (Bld) [#/Vol] 0.05 10*3/uL Normal 0.00-0.20 [facility] Comment on above: Performed By: #### L [id number] ####[facility] ([facility])[address] [place] [address] Immature granulocytes/100 WBC (Bld) 0.6 % Normal 0.0-1.0 [facility] Comment on above: Performed By: #### L [id number] ####[facility] ([facility])[address] [place] [address] Lymphocytes (Bld) [#/Vol] 0.42 10*3/uL Low 1.20-4.00 [facility] Comment on above: Performed By: #### L [id number] ####[facility] ([facility])[address] [place] [address] Lymphocytes/100 WBC (Bld) 4.8 % Low 20.0-45.0 [facility] Comment on above: Performed By: #### L [id number] ####[facility] ([facility])[address] [place] [address] MCH (RBC) [Entitic mass] 26.5 pg Low 27.0-33.0 [facility] Comment on above: Performed By: #### L [id number] ####[facility] ([facility])[address] [place] [address] MCV (RBC) [Entitic vol] 82.6 fL Normal 82.0-98.0 [facility] Comment on above: Performed By: #### L [id number] ####[facility] ([facility])[address] [place] [address] Monocytes (Bld) [#/Vol] 0.82 10*3/uL Normal 0.10-1.00 [facility] Comment on above: Performed By: #### L [id number] ####[facility] ([facility])[address] [place] [address] Monocytes/100 WBC (Bld) 9.3 % Normal 5.0-12.0 [facility] Comment on above: Performed By: #### L [id number] ####[facility] ([facility])[address] [place] [address] Neutrophils (Bld) [#/Vol] 7.52 10*3/uL Normal 1.60-7.60 [facility] Comment on above: Performed By: #### L [id number] ####[facility] ([facility])[address] [place] [address] Neutrophils/100 WBC (Bld) 85.0 % High 40.0-72.0 [facility] Comment on above: Performed By: #### L [id number] ####[facility] ([facility])[address] [place] [address] NRBC (PER 100 WBCS) BY AUTOMATED COUNT 0.0 % Normal 0 [facility] Comment on above: Performed By: #### L [id number] ####[facility] ([facility])[address] [place] [address] PLATELETS (10*3/UL) IN BLOOD AUTOMATED COUNT 192 10*3/uL Normal 150-400 [facility] Comment on above: Performed By: #### L [id number] ####[facility] ([facility])[address] [place] [address] RBC (Bld) [#/Vol] 2.87 10*6/uL Low 4.20-5.70 [facility] Comment on above: Performed By: #### L [id number] ####[facility] ([facility])[address] [place] [address] WBC (Bld) [#/Vol] 8.84 10*3/uL Normal 4.00-10.60 [facility] Comment on above: Performed By: #### L [id number] ####[facility] ([facility])[address] [place] [address] CMV IGMon 11-18-2023 CMV IGM <8.0 Normal <=29.9 [facility] Comment on above: Result Comment: INTE RPRETIVE INFORMATION: Cytomegalovirus Antibody, IgM 29.9 AU/mL or Less ....... Not Detected 30.0-34.9 AU/mL........... Indeterminate-Repeat testing in 10-14 days may be helpful. 35.0 AU/mL or Greater .... Detected-IgM antibody to CMV detected which may indicate a current or recent infection. However, low levels of IgM antibodies may occasionally persist for more than 12 months post-infection.A negative result does not rule out primary infection, pleasecorrelate clinically. CMV serology is not useful for theevaluation of active or reactivated infection in immunocompromisedpatients. Molecular diagnostic tests (i.e. PCR)are preferred inthese cases.This test should not be used for blood donor screening, associatedre-entry protocols, or for screening Human Cell, Tissues andCellular and Tissue-Based Products (HCT/P).Performed By: [employer] [place] [id number] Director: Dashawn Dumont MD, PhDCLIA Number: [id number] Performed By: #### L [id number] ####[facility] ([facility])[address] [place] [address] COMPREHENSIVE METABOLIC PANE Sridhar 11-18-2023 Albumin [Mass/Vol] 2.6 g/dL Low 3.5-5.7 [facility] Comment on above: Performed By: #### L [id number] ####[facility] ([facility])[address] [place] [address] ALP [Catalytic activity/Vol] 252 U/L High 34-104 [facility] Comment on above: Performed By: #### L [id number] ####[facility] ([facility])[address] [place] [address] ALT [Catalytic activity/Vol] 280 U/L High 7-52 [facility] Comment on above: Performed By: #### L [id number] ####[facility] ([facility])[address] [place] [address] Anion gap [Moles/Vol] 8 mmol/L Normal 7-20 [facility] Comment on above: Performed By: #### L [id number] ####[facility] ([facility])[address] [place] [address] AST [Catalytic activity/Vol] 293 U/L High 13-39 [facility] Comment on above: Performed By: #### L [id number] ####[facility] ([facility])[address] [place] [address] Bilirubin [Mass/Vol] 0.9 mg/dL Normal 0.3-1.0 [facility] Comment on above: Performed By: #### L [id number] ####[facility] ([facility])[address] [place] [address] Calcium [Mass/Vol] 7.8 mg/dL Low 8.6-10.3 [facility] Comment on above: Performed By: #### L [id number] ####[facility] ([facility])[address] [place] [address] Chloride [Moles/Vol] 97 mmol/L Low 98-107 [facility] Comment on above: Performed By: #### L [id number] ####[facility] ([facility])[address] [place] [address] CO2 [Moles/Vol] 27 mmol/L Normal 21-31 [facility] Comment on above: Performed By: #### L [id number] ####[facility] ([facility])[address] [place] [address] Creatinine [Mass/Vol] 0.38 mg/dL Low 0.70-1.30 [facility] Comment on above: Performed By: #### L [id number] ####[facility] ([facility])[address] [place] [address] GLOMERULAR FILTRATION RATE ML/MIN/1.73 SQ M.PREDICTED 114.8 mL/min/1.73m*2 Normal >60.0 [facility] Comment on above: Result Comment: [facility]???s estimated glomerular filtration rate (eGFR) will [...] of individuals. Performed By: #### L [id number] ####[facility] ([facility])[address] [place] [address] Glucose [Mass/Vol] 106 mg/dL High 70-100 [facility] Comment on above: Performed By: #### L [id number] ####[facility] ([facility])[address] [place] [address] Potassium [Moles/Vol] 4.3 mmol/L Normal 3.5-5.1 [facility] Comment on above: Performed By: #### L [id number] ####[facility])[address] [place] [address] Protein [Mass/Vol] 6.4 g/dL Normal 6.0-8.3 [facility] Comment on above: Performed By: #### L [id number] ####[facility] ([facility])[address] [place] [address] Urea nitrogen [Mass/Vol] 14 mg/dL Normal 7-25 [facility] Comment on above: Performed By: #### L [id number] ####[facility] ([facility])[address] [place] [address] UREA NITROGEN/CREATININE (MASS RATIO) IN SER/PLAS 36.8 Normal [facility] Comment on above: Performed By: #### L [id number] ####[facility] ([facility])[address] [place] [address] CONSULTon 11-18-2023 CONSULT Normal [facility] CONSULT Normal [facility] DIGOXIN LEVELon 11-18-2023 DIGOXIN (NG/ML) IN SER/PLAS 0.6 ng/mL Low 0.7-2 [facility] Comment on above: Performed By: #### L [id number] ####[facility] ([facility])[address] [place] [address] GIOVANNA-GARG VIRUS VCA, IGMo n 11-18-2023 GIOVANNA-GARG VCA IGM 0.00 Normal <1.10 [facility] Comment on above: Result Comment: NORM AL RANGES:< OR = 0.90 NEGATIVE ; NO SIGNIFICANT LEVEL OF DETECTABLE EBV-VCA IgM AB0.91 - 1.09 EQUIVOCAL; REPEAT TESTING SUGGESTED> OR = 1.10 POSITIVE ; SIGNIFICANT LEVEL OF DETECTABLE EBV-VCA IgM AB Performed By: #### L [id number] ####[facility] ([facility])[address] [place] [address] HEMOGLOBINon 11-18-2023 Hemoglobin (Bld) [Mass/Vol] 7.7 g/dL Low 13.0-17.0 [facility] Comment on above: Performed By: #### L [id number] ####[facility] ([facility])[address] [place] [address] MITOCHONDRIAL ANTIBODIES, M2 on 11-18-2023 MITOCHONDRIAL M2 ANTIBODY 31.0 Units High 0.0-24.9 [facility] Comment on above: Result Comment: REFE RENCE INTERVAL: Mitochondrial (M2) Antibody, IgG 20.0 Units or less ......... Negative 20.1 - 24.9 Units........... Equivocal 25.0 Units or greater....... PositiveAnti-mitochondrial antibodies (AMA) are thought to be present in90-95% of patients with primary biliary cholangitis (PBC).However, the frequency of detected antibodies may be cohort orassay dependent, as lower sensitivities have been reported. Notall PBC patients are positive for AMA; some patients may bepositive for SP100 and/or GP210 antibodies. A negative result doesnot rule out PBC.Performed By: [employer] [place], [place] [address]Gndfzjampe Director: Dashawn Dumont MD, PhDCLIA Number: [id number] Performed By: #### L [id number] ####[facility] ([facility])[address] [place] [address] NURSNOTEon 11-18-2023 NURSNOTE Varices banded x 1 Normal [facility] POCT GLUCOSE METER UNSOLICIT ED RESULTSon 11-18-2023 Glucose [Mass/Vol] 107 mg/dL High 70-105 [facility] Comment on above: Order Comment: Waive d Testing in the ED is performed under the ED CLIA certificate #[id number]. Result Comment: [email or web address] Value Noted Performed By: #### L [id number] ####[facility] ([facility])[address] [place] [address] Glucose [Mass/Vol] 124 mg/dL High 70-105 [facility] Comment on above: Order Comment: Waive d Testing in the ED is performed under the ED CLIA certificate #[id number]. Result Comment: [email or web address] Performed By: #### L [id number] ####[facility] ([facility])[address] [facility] [address] Glucose [Mass/Vol] 114 mg/dL High 70-105 [facility] Comment on above: Order Comment: Waive d Testing in the ED is performed under the ED CLIA certificate #[id number]. Result Comment: [email or web address] Performed By: #### L [id number] ####[facility] ([facility])[address] [place] [address] SODIUMon 11-18-2023 Sodium [Moles/Vol] 128 mmol/L Low 136-145 [facility] Comment on above: Performed By: #### L [id number] ####[facility] ([facility])[address] [place] [address] Sodium [Moles/Vol] 129 mmol/L Low 136-145 [facility] Comment on above: Performed By: #### L [id number] ####[facility] ([facility])[address] [place] [address] Sodium [Moles/Vol] 128 mmol/L Low 136-145 [facility] Comment on above: Performed By: #### L [id number] ####[facility] ([facility])[address] [place] [address] Performed By: #### L [id number] ####[facility] ([facility])[address] [place] [address] TISSUE TRANSGLUTAMINASE, IGA on 11-18-2023 TISSUE TRANSGLUTAMINASE, IGA <1.02 Normal 0.00-4.99 [facility] Comment on above: Result Comment: INTE RPRETIVE INFORMATION: Tissue Transglutaminase (tTG) Antibody, IgAPresence of the tissue transglutaminase (tTG) IgA antibody isassociated with gluten-sensitive enteropathies such as celiacdisease and dermatitis herpetiformis. Individuals with positiveresults should be confirmed with small intestinal biopsy toestablish celiac disease diagnosis. tTG IgA antibodyconcentrations greater than 50 FLU exhibits higher correlationwith results of duodenal biopsies consistent with celiac disease.For antibody concentrations greater than or equal to 5 FLU butless than 10 FLU, additional testing for endomysial (DELIA) IgAconcentrations may improve the positive predictive value fordisease. A decrease in tTG IgA antibody concentration afterinitiation of a gluten-free diet may indicate a response totherapy. Performed By: #### L [id number] ####[facility] ([facility])[address] [place] [address] ACETAMINOPHEN LEVELon 2023 ACETAMINOPHEN (UG/ML) IN SER/PLAS <10 Low 10-30 [facility] Comment on above: Performed By: #### L [id number] ####[facility] ([facility])[address] [place] [address] APTTon 11-17-2023 ACTIVATED PARTIAL THROMBOPLASTIN TIME IN PPP BY COAGULATION ASSAY 53.6 Seconds High 25.0-35.0 [facility] Comment on above: Result Comment: Clin ical significance of the APTT is questionable in the presence of heparin. Performed By: #### L [id number] ####[facility] ([facility])[address] [place] [address] BASIC METABOLIC PANELon Anion gap [Moles/Vol] 9 mmol/L Normal 7-20 [facility] Comment on above: Performed By: #### L [id number] ####[facility] ([facility])[address] [place] [address] Calcium [Mass/Vol] 8.0 mg/dL Low 8.6-10.3 [facility] Comment on above: Performed By: #### L [id number] ####[facility] ([facility])[address] [place] [address] Chloride [Moles/Vol] 94 mmol/L Low 98-107 [facility] Comment on above: Performed By: #### L [id number] ####[facility] [facility] [address] CO2 [Moles/Vol] 27 mmol/L Normal 21-31 [facility] Comment on above: Performed By: #### L [id number] ####[facility] ([facility])[address] [place] [address] Creatinine [Mass/Vol] 0.51 mg/dL Low 0.70-1.30 [facility] Comment on above: Performed By: #### L [id number] ####[facility] ([facility])[address] [place] [address] GLOMERULAR FILTRATION RATE ML/MIN/1.73 SQ M.PREDICTED 105.1 mL/min/1.73m*2 Normal >60.0 [facility] Comment on above: Result Comment: [facility]???s estimated glomerular filtration rate (eGFR) will [...] of individuals. Performed By: #### L [id number] ####[facility] ([facility])[address] [place] [address] Glucose [Mass/Vol] 156 mg/dL High 70-100 [facility] Comment on above: Performed By: #### L [id number] ####[facility] ([facility])[address] [place] [address] Potassium [Moles/Vol] 4.0 mmol/L Normal 3.5-5.1 [facility] Comment on above: Performed By: #### L [id number] ####[facility] ([facility])[address] [place] [address] Sodium [Moles/Vol] 126 mmol/L Low 136-145 [facility] Comment on above: Performed By: #### L [id number] ####[facility] ([facility])[address] [place] [address] Urea nitrogen [Mass/Vol] 18 mg/dL Normal 7-25 [facility] Comment on above: Performed By: #### L [id number] ####[facility] ([facility])[address] [place] [address] UREA NITROGEN/CREATININE (MASS RATIO) IN SER/PLAS 35.3 Normal [facility] Comment on above: Performed By: #### L [id number] ####[facility] ([facility])[address] [place] [address] CBC WITH AUTO DIFFERENTIALon 11-17-2023 Basophils (Bld) [#/Vol] 0.02 10*3/uL Normal 0.00-0.20 [facility] Comment on above: Performed By: #### L [id number] ####[facility])[address] [place] [address] Basophils/100 WBC (Bld) 0.2 % Normal 0.0-1.0 [facility] Comment on above: Performed By: #### L [id number] ####[facility] ([facility])[address] [place] [address] Eosinophils (Bld) [#/Vol] 0.03 10*3/uL Normal 0.00-0.50 [facility] Comment on above: Performed By: #### L [id number] ####[facility] ([facility])[address] [place] [address] Eosinophils/100 WBC (Bld) 0.4 % Normal 0.0-6.0 [facility] Comment on above: Performed By: #### L [id number] ####[facility] ([facility])[address] [place] [address] Erythrocyte distribution width (RBC) [Ratio] 16.9 % High 11.5-15.0 [facility] Comment on above: Performed By: #### L [id number] ####[facility] ([facility])[address] [place] [address] ERYTHROCYTE MEAN CORPUSCULAR HEMOGLOBIN CONCENTRATION (G/DL) BY AUTOMATED 31.6 g/dL Low 32.0-35.0 [facility] Comment on above: Performed By: #### L [id number] ####[facility])[address] [place] [address] Hematocrit (Bld) [Volume fraction] 21.5 % Low 39.0-55.0 [facility] Comment on above: Performed By: #### L [id number] ####[facility])[address] [place] [address] Hemoglobin (Bld) [Mass/Vol] 6.8 g/dL Low 13.0-17.0 [facility] Comment on above: Performed By: #### L [id number] ####[facility] ([facility])[address] [place] [address] Immature granulocytes (Bld) [#/Vol] 0.04 10*3/uL Normal 0.00-0.20 [facility] Comment on above: Performed By: #### L [id number] ####[facility] ([facility])[address] [place] [address] Immature granulocytes/100 WBC (Bld) 0.5 % Normal 0.0-1.0 [facility] Comment on above: Performed By: #### L [id number] ####[facility] ([facility])[address] [place] [address] Lymphocytes (Bld) [#/Vol] 0.43 10*3/uL Low 1.20-4.00 [facility] Comment on above: Performed By: #### L [id number] ####[facility] ([facility])[address] [place] [address] Lymphocytes/100 WBC (Bld) 5.1 % Low 20.0-45.0 [facility] Comment on above: Performed By: #### L [id number] ####[facility] ([facility])[address] [place] [address] MCH (RBC) [Entitic mass] 26.3 pg Low 27.0-33.0 [facility] Comment on above: Performed By: #### L [id number] ####[facility] ([facility])[address] [place] [address] MCV (RBC) [Entitic vol] 83.0 fL Normal 82.0-98.0 [facility] Comment on above: Performed By: #### L [id number] ####[facility] ([facility])[address] [place] [address] Monocytes (Bld) [#/Vol] 0.77 10*3/uL Normal 0.10-1.00 [facility] Comment on above: Performed By: #### L [id number] ####[facility] ([facility])[address] [place] [address] Monocytes/100 WBC (Bld) 9.1 % Normal 5.0-12.0 [facility] Comment on above: Performed By: #### L [id number] ####[facility] ([facility])[address] [place] [address] Neutrophils (Bld) [#/Vol] 7.13 10*3/uL Normal 1.60-7.60 [facility] Comment on above: Performed By: #### L [id number] ####[facility] ([facility])[address] [place] [address] Neutrophils/100 WBC (Bld) 84.7 % High 40.0-72.0 [facility] Comment on above: Performed By: #### L [id number] ####[facility] ([facility])[address] [place] [address] NRBC (PER 100 WBCS) BY AUTOMATED COUNT 0.0 % Normal 0 [facility] Comment on above: Performed By: #### L [id number] ####[facility] ([facility])[address] [place] [address] PLATELETS (10*3/UL) IN BLOOD AUTOMATED COUNT 187 10*3/uL Normal 150-400 [facility] Comment on above: Performed By: #### L [id number] ####[facility] ([facility])[address] [place] [address] RBC (Bld) [#/Vol] 2.59 10*6/uL Low 4.20-5.70 [facility] Comment on above: Performed By: #### L [id number] ####[facility] ([facility])[address] [place] [address] WBC (Bld) [#/Vol] 8.42 10*3/uL Normal 4.00-10.60 [facility] Comment on above: Performed By: #### L [id number] ####[facility] ([facility])[address] [place] [address] CONSULTon 11-17-2023 CONSULT Normal [facility] EDPROVon 11-17-2023 EDPROV Normal [facility] HEPATIC FUNCTION PANELon Albumin [Mass/Vol] 2.7 g/dL Low 3.5-5.7 [facility] Comment on above: Performed By: #### L [id number] ####[facility] ([facility])[address] [place] [address] ALP [Catalytic activity/Vol] 308 U/L High 34-104 [facility] Comment on above: Performed By: #### L [id number] ####[facility] ([facility])[address] [place] [address] ALT [Catalytic activity/Vol] 349 U/L High 7-52 [facility] Comment on above: Performed By: #### L [id number] ####[facility] ([facility])[address] [place] [address] AST [Catalytic activity/Vol] 523 U/L High 13-39 [facility] Comment on above: Performed By: #### L [id number] ####[facility] ([facility])[address] [place] [address] Bilirubin [Mass/Vol] 0.4 mg/dL Normal 0.3-1.0 [facility] Comment on above: Performed By: #### L [id number] ####[facility] ([facility])[address] [facility] [address] Magnesium [Mass/Vol] 0.4 mg/dL High 0-0.2 [facility] Comment on above: Performed By: #### L [id number] ####[facility] ([facility])[address] [facility] [place] [address] Protein [Mass/Vol] 6.8 g/dL Normal 6.0-8.3 [facility] Comment on above: Performed By: #### L [id number] ####[facility] ([facility])[address] [facility] [address] HEPATITIS PANEL, ACUTEon HEPATITIS A VIRUS IGM AB PRESENCE IN SER/PLAS Indeterminate Abnormal Nonreactive [facility] Comment on above: Order Comment: Patie nts with specimens exhibiting indeterminate test results should be retested at approximately one-week intervals. Performed By: #### L [id number] ####[facility] ([facility])[address] [facility] [address] HEPATITIS B VIRUS CORE AB (PRESENCE) IN SER/PLAS BY IMM Non-Reactive Normal Nonreactive [facility] Comment on above: Order Comment: Patie nts with specimens exhibiting indeterminate test results should be retested at approximately one-week intervals. Performed By: #### L [id number] ####[facility] ([facility])[address] [place] [address] HEPATITIS B VIRUS SURFACE AG PRESENCE IN SERUM Non-Reactive Normal Nonreactive [facility] Comment on above: Order Comment: Patie nts with specimens exhibiting indeterminate test results should be retested at approximately one-week intervals. Performed By: #### L [id number] ####[facility] ([facility])[address] [place] [address] HEPATITIS C VIRUS AB PRESENCE IN SERUM Non-Reactive Normal Nonreactive [facility] Comment on above: Order Comment: Patie nts with specimens exhibiting indeterminate test results should be retested at approximately one-week intervals. Performed By: #### L [id number] ####[facility] ([facility])[address] [place] [address] HPon 11-17-2023 HP Normal [facility] PROTIME-INRon 11-17-2023 INR IN PPP BY COAGULATION ASSAY 1.57 High 0.90-1.10 [facility] Comment on above: Result Comment: ACCC [...] CHEST 1995;[id number]. Performed By: #### L [id number] ####[facility] ([facility])[address] [place] [address] PROTHROMBIN TIME (PT) IN PPP BY COAGULATION ASSAY 18.8 Seconds High 12.3-14.8 [facility] Comment on above: Performed By: #### L [id number] ####[facility] ([facility])[address] [place] [address] TROPONIN Ion 11-17-2023 Troponin I.cardiac [Mass/Vol] 0.02 ng/mL Normal 0.00-0.04 [facility] Comment on above: Performed By: #### L [id number] ####[facility] (BE[employer])[address] [place] [address] TYPE AND SCREENon 11-17-2023 AB SCREEN Negative Normal [facility] Comment on above: Performed By: #### L [id number] ####[facility], ABO group Nom (Bld) O Normal [facility] Comment on above: Performed By: #### L [id number] ####[facility], RH TYPE IN BLOOD Positive Normal [facility] Comment on above: Performed By: #### L [id number] ####[facility], 30on 11-08-2023 30 Normal [facility] ANTI-XA (HEPARIN LEVEL)on HEPARIN UNFRACTIONATED (U/ML) IN PPP BY CHROMOGENIC METHOD 0.10 IU/mL Invalid Interpretation Code 0.3-0.7 [facility] Comment on above: Order Comment: Check anti-Xa level every 6 hours while on heparin infusion, or per protocol. Result Comment: [place] roxaban and Apixaban will interfere with the anti Xa assay used to monitor UFH and LMWH. Performed By: #### L [id number] ####[facility] ([facility])[address] [place] [address] HEPARIN UNFRACTIONATED (U/ML) IN PPP BY CHROMOGENIC METHOD <0.10 Invalid Interpretation Code 0.3-0.7 [facility] Comment on above: Order Comment: Check anti-Xa level every 6 hours while on heparin infusion, or per protocol. Result Comment: [place] roxaban and Apixaban will interfere with the anti Xa assay used to monitor UFH and LMWH. Performed By: #### L [id number] ####[facility] ([facility])[address] [place] [address] HEPARIN UNFRACTIONATED (U/ML) IN PPP BY CHROMOGENIC METHOD <0.10 Invalid Interpretation Code 0.3-0.7 [facility] Comment on above: Order Comment: Check anti-Xa level every 6 hours while on heparin infusion, or per protocol. Result Comment: [place] roxaban and Apixaban will interfere with the anti Xa assay used to monitor UFH and LMWH. Performed By: #### L [id number] ####[facility] ([facility])[address] [place] [address] BASIC METABOLIC PANELon 01-3 0 Anion gap [Moles/Vol] 11 mmol/L Normal 7-20 [facility] Comment on above: Performed By: #### L [id number] ####[facility] ([facility])[address] [place] [address] Calcium [Mass/Vol] 7.9 mg/dL Low 8.6-10.3 [facility] Comment on above: Performed By: #### L [id number] ####[facility] ([facility])[address] [place] [address] Chloride [Moles/Vol] 98 mmol/L Normal 98-107 [facility] Comment on above: Performed By: #### L [id number] ####[facility] ([facility])[address] [place] [address] CO2 [Moles/Vol] 26 mmol/L Normal 21-31 [facility] Comment on above: Performed By: #### L [id number] ####[facility] ([facility])[address] [place] [address] Creatinine [Mass/Vol] 0.31 mg/dL Low 0.70-1.30 [facility] Comment on above: Performed By: #### L [id number] ####[facility] ([facility])[address] [place] [address] GLOMERULAR FILTRATION RATE ML/MIN/1.73 SQ M.PREDICTED 122.1 mL/min/1.73m*2 Normal >60.0 [facility] Comment on above: Result Comment: [facility]???s estimated glomerular filtration rate (eGFR) will [...] of individuals. Performed By: #### L [id number] ####[facility] ([facility])[address] [place] [address] Glucose [Mass/Vol] 120 mg/dL High 70-100 [facility] Comment on above: Performed By: #### L [id number] ####[facility] ([facility])[address] [place] [address] Potassium [Moles/Vol] 3.8 mmol/L Normal 3.5-5.1 [facility] Comment on above: Performed By: #### L [id number] ####[facility] ([facility])[address] [place] [address] Sodium [Moles/Vol] 131 mmol/L Low 136-145 [facility] Comment on above: Performed By: #### L [id number] ####[facility] ([facility])[address] [place] [address] Urea nitrogen [Mass/Vol] 13 mg/dL Normal 7-25 [facility] Comment on above: Performed By: #### L [id number] ####[facility] ([facility])[address] [place] [address] UREA NITROGEN/CREATININE (MASS RATIO) IN SER/PLAS 41.9 Normal [facility] Comment on above: Performed By: #### L [id number] ####[facility] ([facility])[address] [place] [address] CBCon 11-08-2023 Erythrocyte distribution width (RBC) [Ratio] 16.7 % High 11.5-15.0 [facility] Comment on above: Performed By: #### L [id number] ####[facility] ([facility])[address] [place] [address] ERYTHROCYTE MEAN CORPUSCULAR HEMOGLOBIN CONCENTRATION (G/DL) BY AUTOMATED 31.8 g/dL Low 32.0-35.0 [facility] Comment on above: Performed By: #### L [id number] ####[facility] ([facility])[address] [place] [address] Hematocrit (Bld) [Volume fraction] 27.4 % Low 39.0-55.0 [facility] Comment on above: Performed By: #### L [id number] ####[facility])[address] [place] [place] [address] Hemoglobin (Bld) [Mass/Vol] 8.7 g/dL Low 13.0-17.0 [facility] Comment on above: Performed By: #### L [id number] ####[facility] ([facility])[address] [place] [address] MCH (RBC) [Entitic mass] 26.2 pg Low 27.0-33.0 [facility] Comment on above: Performed By: #### L [id number] ####[facility] ([facility])[address] [place] [address] MCV (RBC) [Entitic vol] 82.5 fL Normal 82.0-98.0 [facility] Comment on above: Performed By: #### L [id number] ####[facility] ([facility])[address] [place] [address] PLATELETS (10*3/UL) IN BLOOD AUTOMATED COUNT 187 10*3/uL Normal 150-400 [facility] Comment on above: Performed By: #### L [id number] ####[facility])[address] [place] [address] RBC (Bld) [#/Vol] 3.32 10*6/uL Low 4.20-5.70 [facility] Comment on above: Performed By: #### L [id number] ####[facility])[address] [place] [address] WBC (Bld) [#/Vol] 8.48 10*3/uL Normal 4.00-10.60 [facility] Comment on above: Performed By: #### L [id number] ####[facility] ([facility])[address] [place] [address] DSon 11-08-2023 DS Normal [facility] MAGNESIUMon 11-08-2023 Magnesium [Mass/Vol] 1.6 mg/dL Low 1.9-2.7 [facility] Comment on above: Performed By: #### L [id number] ####[facility])[address] [place] [address] NURSNOTEon 11-08-2023 NURSNOTE Warehousing Technician amilcar marques report to [address] with no answer Normal [facility] PHOSPHORUSon 11-08-2023 Magnesium [Mass/Vol] 2.8 mg/dL Normal 2.5-5.0 [facility] Comment on above: Performed By: #### L [id number] ####[facility] ([facility])[address] [place] [address] POCT GLUCOSE METER UNSOLICIT ED RESULTSon 11-08-2023 Glucose [Mass/Vol] 144 mg/dL High 70-105 [facility] Comment on above: Order Comment: Waive d Testing in the ED is performed under the ED CLIA certificate #[id number]. Result Comment: elac umsky Performed By: #### L [id number] ####[facility] ([facility])[address] [place] [address] Glucose [Mass/Vol] 141 mg/dL High 70-105 [facility] Comment on above: Order Comment: Waive d Testing in the ED is performed under the ED CLIA certificate #[id number]. Result Comment: elac umsky Performed By: #### L [id number] ####[facility] ([facility])[address] [place] [address] 30on 11-07-2023 30 Normal [facility] ANTI-XA (HEPARIN LEVEL)on HEPARIN UNFRACTIONATED (U/ML) IN PPP BY CHROMOGENIC METHOD <0.10 Invalid Interpretation Code 0.3-0.7 [facility] Comment on above: Order Comment: Check anti-Xa level every 6 hours while on heparin infusion, or per protocol. Result Comment: [place] roxaban and Apixaban will interfere with the anti Xa assay used to monitor UFH and LMWH. Performed By: #### L [id number] ####[facility] ([facility])[address] [place] [address] APTTon 11-07-2023 ACTIVATED PARTIAL THROMBOPLASTIN TIME IN PPP BY COAGULATION ASSAY 44.6 Seconds High 25.0-35.0 [facility] Comment on above: Order Comment: Basel ine aPTT before initiating heparin infusion. Result Comment: Clin ical significance of the APTT is questionable in the presence of heparin. Performed By: #### L [id number] ####[facility] ([facility])[address] [place] [address] BASIC METABOLIC PANELon 10-11 Anion gap [Moles/Vol] 16 mmol/L Normal 7-20 [facility] Comment on above: Performed By: #### L [id number] ####[facility] ([facility])[address] [place] [address] Calcium [Mass/Vol] 8.6 mg/dL Normal 8.6-10.3 [facility] Comment on above: Performed By: #### L [id number] ####[facility] ([facility])[address] [place] [address] Chloride [Moles/Vol] 97 mmol/L Low 98-107 [facility] Comment on above: Performed By: #### L [id number] ####[facility])[address] [place] [address] CO2 [Moles/Vol] 21 mmol/L Normal 21-31 [facility] Comment on above: Performed By: #### L [id number] ####[facility])[address] [place] [address] Creatinine [Mass/Vol] 0.32 mg/dL Low 0.70-1.30 [facility] Comment on above: Performed By: #### L [id number] ####[facility] [place] [address] GLOMERULAR FILTRATION RATE ML/MIN/1.73 SQ M.PREDICTED 121.0 mL/min/1.73m*2 Normal >60.0 [facility] Comment on above: Result Comment: [facility]???s estimated glomerular filtration rate (eGFR) will [...] of individuals. Performed By: #### L [id number] ####[facility] ([facility])[address] [place] [address] Glucose [Mass/Vol] 114 mg/dL High 70-100 [facility] Comment on above: Performed By: #### L [id number] ####[facility] ([facility])[address] [place] [address] Potassium [Moles/Vol] 4.1 mmol/L Normal 3.5-5.1 [facility] Comment on above: Performed By: #### L [id number] ####[facility] ([facility])[address] [place] [address] Sodium [Moles/Vol] 130 mmol/L Low 136-145 [facility] Comment on above: Performed By: #### L [id number] ####[facility] [place] [address] Urea nitrogen [Mass/Vol] 5 mg/dL Low 7-25 [facility] Comment on above: Performed By: #### L [id number] ####[facility] ([facility])[address] [place] [address] UREA NITROGEN/CREATININE (MASS RATIO) IN SER/PLAS 15.6 Normal [facility] Comment on above: Performed By: #### L [id number] ####[facility] ([facility])[address] [address] CBCon 11-07-2023 Erythrocyte distribution width (RBC) [Ratio] 16.8 % High 11.5-15.0 [facility] Comment on above: Performed By: #### L [id number] ####[facility] ([facility])[address] [address] ERYTHROCYTE MEAN CORPUSCULAR HEMOGLOBIN CONCENTRATION (G/DL) BY AUTOMATED 32.1 g/dL Normal 32.0-35.0 [facility] Comment on above: Performed By: #### L [id number] ####[facility] ([facility])[address] [address] Hematocrit (Bld) [Volume fraction] 29.3 % Low 39.0-55.0 [facility] Comment on above: Performed By: #### L [id number] ####[facility] ([facility])[address] [address] Hemoglobin (Bld) [Mass/Vol] 9.4 g/dL Low 13.0-17.0 [facility] Comment on above: Performed By: #### L [id number] ####[facility] ([facility])[address] [address] MCH (RBC) [Entitic mass] 26.6 pg Low 27.0-33.0 [facility] Comment on above: Performed By: #### L [id number] ####[facility] [address] MCV (RBC) [Entitic vol] 83.0 fL Normal 82.0-98.0 [facility] Comment on above: Performed By: #### L [id number] ####[facility] ([facility])[address] [address] PLATELETS (10*3/UL) IN BLOOD AUTOMATED COUNT 214 10*3/uL Normal 150-400 [facility] Comment on above: Performed By: #### L [id number] ####[facility] [place] [address] RBC (Bld) [#/Vol] 3.53 10*6/uL Low 4.20-5.70 [facility] Comment on above: Performed By: #### L [id number] ####[facility] ([facility])[address] [place] [address] WBC (Bld) [#/Vol] 10.83 10*3/uL High 4.00-10.60 [facility] Comment on above: Performed By: #### L [id number] ####[facility] ([facility])[address] [place] [address] PLATELET COUNTon 11-07-2023 PLATELETS (10*3/UL) IN BLOOD AUTOMATED COUNT 208 10*3/uL Normal 150-400 [facility] Comment on above: Performed By: #### L [id number] ####[facility] ([facility])[address] [place] [address] POCT GLUCOSE METER UNSOLICIT ED RESULTSon 11-07-2023 Glucose [Mass/Vol] 143 mg/dL High 70-105 [facility] Comment on above: Order Comment: Waive d Testing in the ED is performed under the ED CLIA certificate #[id number]. Result Comment: manny nugent Performed By: #### L [id number] ####[facility] ([facility])[address] [place] [address] Glucose [Mass/Vol] 131 mg/dL High 70-105 [facility] Comment on above: Order Comment: Waive d Testing in the ED is performed under the ED CLIA certificate #[id number]. Result Comment: elac umsky Performed By: #### L [id number] ####[facility] ([facility])[address] [place] [address] Glucose [Mass/Vol] 177 mg/dL High 70-105 [facility] Comment on above: Order Comment: Waive d Testing in the ED is performed under the ED CLIA certificate #[id number]. Result Comment: elac umsky Performed By: #### L [id number] ####[facility])[address] [place] [address] Glucose [Mass/Vol] 133 mg/dL High 70-105 [facility] Comment on above: Order Comment: Waive d Testing in the ED is performed under the ED CLIA certificate #[id number]. Result Comment: elac umsky Performed By: #### L [id number] ####[facility] ([facility])[address] [address] APTTon 11-06-2023 ACTIVATED PARTIAL THROMBOPLASTIN TIME IN PPP BY COAGULATION ASSAY 43.9 Seconds High 25.0-35.0 [facility] Comment on above: Order Comment: Check aPTT every 6 hours while on heparin infusion, or per protocol. Result Comment: Clin ical significance of the APTT is questionable in the presence of heparin. Performed By: #### L [id number] ####[facility] ([facility])[address] [address] CBCon 11-06-2023 Erythrocyte distribution width (RBC) [Ratio] 16.8 % High 11.5-15.0 [facility] Comment on above: Performed By: #### L [id number] ####[facility] ([facility])[address] [place], [place] [address] ERYTHROCYTE MEAN CORPUSCULAR HEMOGLOBIN CONCENTRATION (G/DL) BY AUTOMATED 32.0 g/dL Normal 32.0-35.0 [facility] Comment on above: Performed By: #### L [id number] ####[facility] ([facility])[address] [place], [place] [address] Hematocrit (Bld) [Volume fraction] 27.8 % Low 39.0-55.0 [facility] Comment on above: Performed By: #### L [id number] ####[facility] ([facility])[address] [place], [place] [address] Hemoglobin (Bld) [Mass/Vol] 8.9 g/dL Low 13.0-17.0 [facility] Comment on above: Performed By: #### L [id number] ####[facility] ([facility])[address] [place] [address] MCH (RBC) [Entitic mass] 26.8 pg Low 27.0-33.0 [facility] Comment on above: Performed By: #### L [id number] ####[facility] ([facility])[address] [place] [address] MCV (RBC) [Entitic vol] 83.7 fL Normal 82.0-98.0 [facility] Comment on above: Performed By: #### L [id number] ####[facility] ([facility])[address] [place] [address] PLATELETS (10*3/UL) IN BLOOD AUTOMATED COUNT 175 10*3/uL Normal 150-400 [facility] Comment on above: Performed By: #### L [id number] ####[facility] ([facility])[address] [place] [address] RBC (Bld) [#/Vol] 3.32 10*6/uL Low 4.20-5.70 [facility] Comment on above: Performed By: #### L [id number] ####[facility] ([facility])[address] [place] [address] WBC (Bld) [#/Vol] 8.08 10*3/uL Normal 4.00-10.60 [facility] Comment on above: Performed By: #### L [id number] ####[facility] ([facility])[address] [place] [address] COMPREHENSIVE METABOLIC PANE Sridhar 11-06-2023 Albumin [Mass/Vol] 3.0 g/dL Low 3.5-5.7 [facility] Comment on above: Performed By: #### L [id number] ####[facility] ([facility])[address] [place] [address] ALP [Catalytic activity/Vol] 139 U/L High 34-104 [facility] Comment on above: Performed By: #### L [id number] ####[facility])[address] [place] [address] ALT [Catalytic activity/Vol] 80 U/L High 7-52 [facility] Comment on above: Performed By: #### L [id number] ####[facility] ([facility])[address] [place] [address] Anion gap [Moles/Vol] 9 mmol/L Normal 7-20 [facility] Comment on above: Performed By: #### L [id number] ####[facility] ([facility])[address] [place] [address] AST [Catalytic activity/Vol] 71 U/L High 13-39 [facility] Comment on above: Performed By: #### L [id number] ####[facility] ([facility])[address] [place] [address] Bilirubin [Mass/Vol] 0.6 mg/dL Normal 0.3-1.0 [facility] Comment on above: Performed By: #### L [id number] ####[facility] ([facility])[address] [place] [address] Calcium [Mass/Vol] 8.3 mg/dL Low 8.6-10.3 [facility] Comment on above: Performed By: #### L [id number] ####[facility] ([facility])[address] [place] [address] Chloride [Moles/Vol] 97 mmol/L Low 98-107 [facility] Comment on above: Performed By: #### L [id number] ####[facility])[address] [place] [address] CO2 [Moles/Vol] 27 mmol/L Normal 21-31 [facility] Comment on above: Performed By: #### L [id number] ####[facility] ([facility])[address] [place] [address] Creatinine [Mass/Vol] 0.35 mg/dL Low 0.70-1.30 [facility] Comment on above: Performed By: #### L [id number] ####[facility] ([facility])[address] [place] [address] GLOMERULAR FILTRATION RATE ML/MIN/1.73 SQ M.PREDICTED 117.7 mL/min/1.73m*2 Normal >60.0 [facility] Comment on above: Result Comment: [facility]???s estimated glomerular filtration rate (eGFR) will [...] of individuals. Performed By: #### L [id number] ####[facility] ([facility])[address] [place] [address] Glucose [Mass/Vol] 153 mg/dL High 70-100 [facility] Comment on above: Performed By: #### L [id number] ####[facility] ([facility])[address] [place] [address] Potassium [Moles/Vol] 2.8 mmol/L Invalid Interpretation Code 3.5-5.1 [facility] Comment on above: Performed By: #### L [id number] ####[facility] ([facility])[address] [place] [address] Protein [Mass/Vol] 6.1 g/dL Normal 6.0-8.3 [facility] Comment on above: Performed By: #### L [id number] ####[facility] ([facility])[address] [address] Sodium [Moles/Vol] 130 mmol/L Low 136-145 [facility] Comment on above: Performed By: #### L [id number] ####[facility])[address] [place] [address] Urea nitrogen [Mass/Vol] 4 mg/dL Low 7-25 [facility] Comment on above: Performed By: #### L [id number] ####[facility] ([facility])[address] [place] [address] UREA NITROGEN/CREATININE (MASS RATIO) IN SER/PLAS 11.4 Normal [facility] Comment on above: Performed By: #### L [id number] ####[facility] ([facility])[address] [place] [address] POCT GLUCOSE METER UNSOLICIT ED RESULTSon 11-06-2023 Glucose [Mass/Vol] 159 mg/dL High 70-105 [facility] Comment on above: Order Comment: Waive d Testing in the ED is performed under the ED CLIA certificate #[id number]. Result Comment: [email or web address] Performed By: #### L [id number] ####[facility] ([facility])[address] [place] [address] Glucose [Mass/Vol] 122 mg/dL High 70-105 [facility] Comment on above: Order Comment: Waive d Testing in the ED is performed under the ED CLIA certificate #[id number]. Result Comment: kshe llh Performed By: #### L [id number] ####[facility] ([facility])[address] [place] [address] Glucose [Mass/Vol] 140 mg/dL High 70-105 [facility] Comment on above: Order Comment: Waive d Testing in the ED is performed under the ED CLIA certificate #[id number]. Result Comment: kshe llh Performed By: #### L [id number] ####[facility] ([facility])[address] [place] [address] Glucose [Mass/Vol] 144 mg/dL High 70-105 [facility] Comment on above: Order Comment: Waive d Testing in the ED is performed under the ED CLIA certificate #[id number]. Result Comment: kshe llh Performed By: #### L [id number] ####[facility] ([facility])[address] [place] [address] 30on 11-05-2023 30 Normal [facility] APTTon 11-05-2023 ACTIVATED PARTIAL THROMBOPLASTIN TIME IN PPP BY COAGULATION ASSAY 45.3 Seconds High 25.0-35.0 [facility] Comment on above: Order Comment: Check aPTT every 6 hours while on heparin infusion, or per protocol. Result Comment: Clin ical significance of the APTT is questionable in the presence of heparin. Performed By: #### L [id number] ####[facility] ([facility])[address] [place] [address] CBCon 11-05-2023 Erythrocyte distribution width (RBC) [Ratio] 16.8 % High 11.5-15.0 [facility] Comment on above: Performed By: #### L [id number] ####[facility] ([facility])[address] [place] [address] ERYTHROCYTE MEAN CORPUSCULAR HEMOGLOBIN CONCENTRATION (G/DL) BY AUTOMATED 32.1 g/dL Normal 32.0-35.0 [facility] Comment on above: Performed By: #### L [id number] ####[facility] ([facility])[address] [place] [address] Hematocrit (Bld) [Volume fraction] 24.3 % Low 39.0-55.0 [facility] Comment on above: Performed By: #### L [id number] ####[facility] [place] [address] Hemoglobin (Bld) [Mass/Vol] 7.8 g/dL Low 13.0-17.0 [facility] Comment on above: Performed By: #### L [id number] ####[facility])[address] [place] [address] MCH (RBC) [Entitic mass] 27.5 pg Normal 27.0-33.0 [facility] Comment on above: Performed By: #### L [id number] ####[facility] ([employer])[address] [place] [address] MCV (RBC) [Entitic vol] 85.6 fL Normal 82.0-98.0 [facility] Comment on above: Performed By: #### L [id number] ####[facility] ([facility])[address] [place] [address] PLATELETS (10*3/UL) IN BLOOD AUTOMATED COUNT 124 10*3/uL Low 150-400 [facility] Comment on above: Performed By: #### L [id number] ####[facility] ([facility])[address] [place] [address] RBC (Bld) [#/Vol] 2.84 10*6/uL Low 4.20-5.70 [facility] Comment on above: Performed By: #### L [id number] ####[facility] ([facility])[address] [place] [address] WBC (Bld) [#/Vol] 3.24 10*3/uL Low 4.00-10.60 [facility] Comment on above: Performed By: #### L [id number] ####[facility] ([facility])[address] [place] [address] COMPREHENSIVE METABOLIC PANE Sridhar 11-05-2023 Albumin [Mass/Vol] 2.9 g/dL Low 3.5-5.7 [facility] Comment on above: Performed By: #### L [id number] ####[facility] ([facility])[address] [place] [address] ALP [Catalytic activity/Vol] 132 U/L High 34-104 [facility] Comment on above: Performed By: #### L [id number] ####[facility] [place] [address] ALT [Catalytic activity/Vol] 88 U/L High 7-52 [facility] Comment on above: Performed By: #### L [id number] ####[facility] [place] [address] Anion gap [Moles/Vol] 7 mmol/L Normal 7-20 [facility] Comment on above: Performed By: #### L [id number] ####[facility] ([facility])[address] [place] [address] AST [Catalytic activity/Vol] 61 U/L High 13-39 [facility] Comment on above: Performed By: #### L [id number] ####[facility] ([facility])[address] [place] [address] Bilirubin [Mass/Vol] 0.3 mg/dL Normal 0.3-1.0 [facility] Comment on above: Performed By: #### L [id number] ####[facility] ([facility])[address] [place] [address] Calcium [Mass/Vol] 8.4 mg/dL Low 8.6-10.3 [facility] Comment on above: Performed By: #### L [id number] ####[facility] ([facility])[address] [place] [address] Chloride [Moles/Vol] 104 mmol/L Normal 98-107 [facility] Comment on above: Performed By: #### L [id number] ####[facility] ([facility])[address] [place] [address] CO2 [Moles/Vol] 26 mmol/L Normal 21-31 [facility] Comment on above: Performed By: #### L [id number] ####[facility] ([facility])[address] [place] [address] Creatinine [Mass/Vol] 0.42 mg/dL Low 0.70-1.30 [facility] Comment on above: Performed By: #### L [id number] ####[facility] ([facility])[address] [place] [address] GLOMERULAR FILTRATION RATE ML/MIN/1.73 SQ M.PREDICTED 111.4 mL/min/1.73m*2 Normal >60.0 [facility] Comment on above: Result Comment: [facility]???s estimated glomerular filtration rate (eGFR) will [...] of individuals. Performed By: #### L [id number] ####[facility] ([facility])[address] [place] [address] Glucose [Mass/Vol] 120 mg/dL High 70-100 [facility] Comment on above: Performed By: #### L [id number] ####[facility] ([facility])[address] [place] [address] Potassium [Moles/Vol] 3.4 mmol/L Low 3.5-5.1 [facility] Comment on above: Performed By: #### L [id number] ####[facility] ([facility])[address] [place] [address] Protein [Mass/Vol] 5.6 g/dL Low 6.0-8.3 [facility] Comment on above: Performed By: #### L [id number] ####[facility] ([facility])[address] [place] [address] Sodium [Moles/Vol] 134 mmol/L Low 136-145 [facility] Comment on above: Performed By: #### L [id number] ####[facility] ([facility])[address] [place] [address] Urea nitrogen [Mass/Vol] 9 mg/dL Normal 7-25 [facility] Comment on above: Performed By: #### L [id number] ####[facility] ([facility])[address] [place] [address] UREA NITROGEN/CREATININE (MASS RATIO) IN SER/PLAS 21.4 Normal [facility] Comment on above: Performed By: #### L [id number] ####[facility] ([facility])[address] [place] [address] CONSULTon 11-05-2023 CONSULT Normal [facility] POCT GLUCOSE METER UNSOLICIT ED RESULTSon 11-05-2023 Glucose [Mass/Vol] 119 mg/dL High 70-105 [facility] Comment on above: Order Comment: Waive d Testing in the ED is performed under the ED CLIA certificate #[id number]. Result Comment: [email or web address] Performed By: #### L [id number] ####[facility] ([facility])[address] [place] [address] Glucose [Mass/Vol] 213 mg/dL High 70-105 [facility] Comment on above: Order Comment: Waive d Testing in the ED is performed under the ED CLIA certificate #[id number]. Result Comment: [email or web address] Performed By: #### L [id number] ####[facility] ([employer])[address] [place] [address] Glucose [Mass/Vol] 163 mg/dL High 70-105 [facility] Comment on above: Order Comment: Waive d Testing in the ED is performed under the ED CLIA certificate #[id number]. Result Comment: [email or web address] Performed By: #### L [id number] ####[facility] ([employer])[address] [place] [address] Glucose [Mass/Vol] 106 mg/dL High 70-105 [facility] Comment on above: Order Comment: Waive d Testing in the ED is performed under the ED CLIA certificate #[id number]. Result Comment: [email or web address] Performed By: #### L [id number] ####[facility] ([employer])[address] [place] [address] VANCOMYCIN, TROUGHon 024 VANCOMYCIN (UG/ML) IN SER/PLAS - TROUGH 11.5 ug/mL Normal 5.0-20.0 [facility] Comment on above: Order Comment: Pleas e draw one hour before vancomycin infusion Performed By: #### L [id number] ####[facility] ([employer])[address] [place] [address] 30on 11-04-2023 30 Normal [facility] 30 [facility] 36on 11-04-2023 36 Yes. Patient can kenia l us after surgery to reschedule an appointment [facility] 36 Pt canceled appt on 11/09/23 due to patient having surgery today. would like to know if he need to reschedule? Normal [facility] ANESon 11-04-2023 ANES Normal [facility] ANES [facility] APTTon 11-04-2023 ACTIVATED PARTIAL THROMBOPLASTIN TIME IN PPP BY COAGULATION ASSAY 80.2 Seconds High 25.0-35.0 [facility] Comment on above: Order Comment: Check aPTT every 6 hours while on heparin infusion, or per protocol. Result Comment: Clin ical significance of the APTT is questionable in the presence of heparin. Performed By: #### L [id number] ####[facility] ([facility])[address] [place] [address] CBCon 11-04-2023 Erythrocyte distribution width (RBC) [Ratio] 16.5 % High 11.5-15.0 [facility] Comment on above: Performed By: #### L [id number] ####[facility] ([facility])[address] [place] [address] ERYTHROCYTE MEAN CORPUSCULAR HEMOGLOBIN CONCENTRATION (G/DL) BY AUTOMATED 31.5 g/dL Low 32.0-35.0 [facility] Comment on above: Performed By: #### L [id number] ####[facility] ([facility])[address] [place] [address] Hematocrit (Bld) [Volume fraction] 24.1 % Low 39.0-55.0 [facility] Comment on above: Performed By: #### L [id number] ####[facility] ([facility])[address] [place] [address] Hemoglobin (Bld) [Mass/Vol] 7.6 g/dL Low 13.0-17.0 [facility] Comment on above: Performed By: #### L [id number] ####[facility] [place] [address] MCH (RBC) [Entitic mass] 27.0 pg Normal 27.0-33.0 [facility] Comment on above: Performed By: #### L [id number] ####[facility] ([facility])[address], [place] [address] MCV (RBC) [Entitic vol] 85.5 fL Normal 82.0-98.0 [facility] Comment on above: Performed By: #### L [id number] ####[facility] ([facility])[address] [place] [address] PLATELETS (10*3/UL) IN BLOOD AUTOMATED COUNT 132 10*3/uL Low 150-400 [facility] Comment on above: Performed By: #### L [id number] ####[facility] ([facility])[address] [place] [address] RBC (Bld) [#/Vol] 2.82 10*6/uL Low 4.20-5.70 [facility] Comment on above: Performed By: #### L [id number] ####[facility] ([facility])[address] [place] [address] WBC (Bld) [#/Vol] 4.29 10*3/uL Normal 4.00-10.60 [facility] Comment on above: Performed By: #### L [id number] ####[facility] [place] [address] COMPREHENSIVE METABOLIC PANE Sridhar 11-04-2023 Albumin [Mass/Vol] 2.9 g/dL Low 3.5-5.7 [facility] Comment on above: Performed By: #### L [id number] ####[facility] [place] [address] ALP [Catalytic activity/Vol] 116 U/L High 34-104 [facility] Comment on above: Performed By: #### L [id number] ####[facility] ([facility])[address] [place] [address] ALT [Catalytic activity/Vol] 92 U/L High 7-52 [facility] Comment on above: Performed By: #### L [id number] ####[facility] ([facility])[address] [place] [address] Anion gap [Moles/Vol] 9 mmol/L Normal 7-20 [facility] Comment on above: Performed By: #### L [id number] ####[facility] ([facility])[address] [place] [address] AST [Catalytic activity/Vol] 47 U/L High 13-39 [facility] Comment on above: Performed By: #### L [id number] ####[facility] ([facility])[address] [place] [address] Bilirubin [Mass/Vol] 0.4 mg/dL Normal 0.3-1.0 [facility] Comment on above: Performed By: #### L [id number] ####[facility] ([facility])[address] [place] [address] Calcium [Mass/Vol] 8.1 mg/dL Low 8.6-10.3 [facility] Comment on above: Performed By: #### L [id number] ####[facility] ([facility])[address] [place] [address] Chloride [Moles/Vol] 100 mmol/L Normal 98-107 [facility] Comment on above: Performed By: #### L [id number] ####[facility] ([facility])[address] [place] [address] CO2 [Moles/Vol] 25 mmol/L Normal 21-31 [facility] Comment on above: Performed By: #### L [id number] ####[facility] ([facility])[address] [place] [address] Creatinine [Mass/Vol] 0.37 mg/dL Low 0.70-1.30 [facility] Comment on above: Performed By: #### L [id number] ####[facility] ([facility])[address] [place] [address] GLOMERULAR FILTRATION RATE ML/MIN/1.73 SQ M.PREDICTED 115.8 mL/min/1.73m*2 Normal >60.0 [facility] Comment on above: Result Comment: [facility]???s estimated glomerular filtration rate (eGFR) will [...] of individuals. Performed By: #### L [id number] ####[facility] ([facility])[address] [place] [address] Glucose [Mass/Vol] 111 mg/dL High 70-100 [facility] Comment on above: Performed By: #### L [id number] ####[facility] ([facility])[address] [place] [address] Potassium [Moles/Vol] 3.3 mmol/L Low 3.5-5.1 [facility] Comment on above: Performed By: #### L [id number] ####[facility] ([facility])[address] [place] [address] Protein [Mass/Vol] 5.6 g/dL Low 6.0-8.3 [facility] Comment on above: Performed By: #### L [id number] ####[facility] [place] [address] Sodium [Moles/Vol] 131 mmol/L Low 136-145 [facility] Comment on above: Performed By: #### L [id number] ####[facility] [place] [address] Urea nitrogen [Mass/Vol] 9 mg/dL Normal - [facility] Comment on above: Performed By: #### L [id number] ####[facility] [place] [address] UREA NITROGEN/CREATININE (MASS RATIO) IN SER/PLAS 24.3 Normal [facility] Comment on above: Performed By: #### L [id number] ####[facility] [place] [address] HISTOLOGY - TISSUE EXAMon LAB AP CASE REPORT Normal [facility] Comment on above: Order Comment: Pre-o p diagnosis:Limb ischemia [I99.8] Result Comment: Surg ical Pathology Case: [id number] Provider: Anjelica Zapata MD Collected: 11/04/2023 1850Ordering Location: [facility] Main Operating Room Received: 11/07/2023 0632Pathologist: MONICA Alanpecimen: Leg, LEFT LOWER LEG - BELOW KNEE AMPUTATION Performed By: #### L [id number] ####[facility] [place] [address] LAB AP CLINICAL INFORMATION Normal [facility] Comment on above: Order Comment: Pre-o p diagnosis:Limb ischemia [I99.8] Result Comment: Post -Op DcrwfiwzmT92.8 - Limb ischemia [ICD-10-CM] Performed By: #### L [id number] ####[facility] [place] [address] LAB AP GROSS DESCRIPTION A. Leg. Normal [facility] Comment on above: Order Comment: Pre-o p diagnosis:Limb ischemia [I99.8] Result Comment: Rece ived in formalin is a container labeled Max W Sanchez, LEFT LOWER LEG - BELOW KNEE AMPUTATION . 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 All five toes and toenails are intact. The skin and soft tissue margin is smooth and transected. The bony resection margin is smooth, transected and extends 5 cm past the skin and soft tissue margin. The great toe is black and necrotic. The necrosis extends to the metatarsal head of the great toe on both the dorsal and plantar surfaces. This is surrounded by a large, erythematous erosion encompassing an area of 11 x 8 cm on the dorsal surface and 6 x 3.5 cm on the plantar surface. The anterior tibial artery is located and appears 25-50% occluded. The posterior tibial artery is identified and appears 25% occluded. The dorsalis pedis artery is identified and rubbery in consistency.Sections are submitted as follows:A1: Skin and soft tissue margin, credit representative sectionA2: Bone marrow, tibial marginA3: Great toe, credit representative longitudinal section after decalcificationA4: Areas of erythematous erosion, credit representative sectionsA5: Anterior tibial artery, credit representative cross sectionsA6: Posterior tibial artery, credit representative cross sectionsA7: Dorsalis pedis artery, credit representative cross section Shani Smyth, Student Fellow Performed By: #### L [id number] ####[facility] [place] [address] LAB AP MICROSCOPIC DESCRIPTION Microscopic examination performed. [facility] Comment on above: Order Comment: Pre-o p diagnosis:Limb ischemia [I99.8] Performed By: #### L [id number] ####[facility] [place] [address] LAB AP REPORT FINAL DIAGNOSIS NARRATIVE [facility] Comment on above: Order Comment: Pre-o p diagnosis:Limb ischemia [I99.8] Result Comment: Left lower leg, below the knee amputation: - Skin with ulceration and gangrenous necrosis. - Necrotic bone and soft tissues. - Soft tissue resection margin viable. - Bone marrow margin free of acute inflammation. - Arterial artheromatous plaques with calcification. Performed By: #### L [id number] ####[facility] [place] [address] NURSNOTEon 11-04-2023 NURSNOTE Warehousing Technician asked night surgery/vascular MD if heparin gtt needs to be held at [address] Rubina PA-C said the heparin drip will be turned off 1 to 2 hours before the procedure due to heparin's short half-life. Normal [facility] OPNOTEon 11-04-2023 OPNOTE Normal [facility] OSMOLALITY, URINEon 11-04-19 24 OSMOLALITY, URINE 383 mOsm/kg Normal 80-1300 [facility] Comment on above: Result Comment: Test Performed by [employer] [address] [place] [address] - Released 11/04/2023 16:39 Performed By: #### L [id number] ####[facility] [employer] [id number] [place] [address] POCT GLUCOSE METER UNSOLICIT ED RESULTSon 11-04-2023 Glucose [Mass/Vol] 117 mg/dL High 70-105 [facility] Comment on above: Order Comment: Waive d Testing in the ED is performed under the ED CLIA certificate #[id number]. Result Comment: [email or web address] Performed By: #### L [id number] ####[facility] ([employer])[address] [place] [address] Glucose [Mass/Vol] 118 mg/dL High 70-105 [facility] Comment on above: Order Comment: Waive d Testing in the ED is performed under the ED CLIA certificate #[id number]. Result Comment: [email or web address] Performed By: #### L [id number] ####[facility] ([employer])[address] [place] [address] Glucose [Mass/Vol] 131 mg/dL High 70-105 [facility] Comment on above: Order Comment: Waive d Testing in the ED is performed under the ED CLIA certificate #[id number]. Result Comment: [email or web address] Performed By: #### L [id number] ####[facility] ([facility])[address] [place] [address] SODIUM, URINE, RANDOMon 10-11 Sodium (U) [Moles/Vol] 86 mmol/L Normal [facility] Comment on above: Performed By: #### L [id number] ####[facility] [address] TYPE AND SCREENon 11-04-2023 AB SCREEN Negative Normal [facility] Comment on above: Performed By: #### L [id number] ####[facility], ABO group Nom (Bld) O Normal [facility] Comment on above: Performed By: #### L [id number] ####[facility], RH TYPE IN BLOOD Positive Normal [facility] Comment on above: Performed By: #### L [id number] ####[facility], Telephoneon 11-04-2023 Telephone Normal [facility] 30on 11-03-2023 30 Normal [facility] APTTon 11-03-2023 ACTIVATED PARTIAL THROMBOPLASTIN TIME IN PPP BY COAGULATION ASSAY 72.3 Seconds High 25.0-35.0 [facility] Comment on above: Order Comment: Check aPTT every 6 hours while on heparin infusion, or per protocol. Result Comment: Clin ical significance of the APTT is questionable in the presence of heparin. Performed By: #### L [id number] ####[facility] [place] [address] ACTIVATED PARTIAL THROMBOPLASTIN TIME IN PPP BY COAGULATION ASSAY 75.8 Seconds High 25.0-35.0 [facility] Comment on above: Order Comment: Check aPTT every 6 hours while on heparin infusion, or per protocol. Result Comment: Clin ical significance of the APTT is questionable in the presence of heparin. Performed By: #### L [id number] ####[facility] [place] [address] ACTIVATED PARTIAL THROMBOPLASTIN TIME IN PPP BY COAGULATION ASSAY 84.3 Seconds High 25.0-35.0 [facility] Comment on above: Order Comment: Check aPTT every 6 hours while on heparin infusion, or per protocol. Result Comment: Clin ical significance of the APTT is questionable in the presence of heparin. Performed By: #### L [id number] ####[facility] [place] [address] BASIC METABOLIC PANELon 01-2 Anion gap [Moles/Vol] 8 mmol/L Normal 7-20 [facility] Comment on above: Performed By: #### L [id number] ####[facility] [place] [address] Calcium [Mass/Vol] 8.7 mg/dL Normal 8.6-10.3 [facility] Comment on above: Performed By: #### L [id number] ####[facility] [place] [address] Chloride [Moles/Vol] 98 mmol/L Normal 98-107 [facility] Comment on above: Performed By: #### L [id number] ####[facility] [place] [address] CO2 [Moles/Vol] 27 mmol/L Normal 21-31 [facility] Comment on above: Performed By: #### L [id number] ####[facility] [place] [address] Creatinine [Mass/Vol] 0.41 mg/dL Low 0.70-1.30 [facility] Comment on above: Performed By: #### L [id number] ####[facility] [place] [address] GLOMERULAR FILTRATION RATE ML/MIN/1.73 SQ M.PREDICTED 112.2 mL/min/1.73m*2 Normal >60.0 [facility] Comment on above: Result Comment: [facility]???s estimated glomerular filtration rate (eGFR) will [...] of individuals. Performed By: #### L [id number] ####[facility] [place] [address] Glucose [Mass/Vol] 102 mg/dL High 70-100 [facility] Comment on above: Performed By: #### L [id number] ####[facility] [place] [address] Potassium [Moles/Vol] 3.3 mmol/L Low 3.5-5.1 [facility] Comment on above: Performed By: #### L [id number] ####[facility] [place] [address] Sodium [Moles/Vol] 130 mmol/L Low 136-145 [facility] Comment on above: Performed By: #### L [id number] ####[facility] [place] [address] Urea nitrogen [Mass/Vol] 12 mg/dL Normal 7-25 [facility] Comment on above: Performed By: #### L [id number] ####[facility] [place] [address] UREA NITROGEN/CREATININE (MASS RATIO) IN SER/PLAS 29.3 Normal [facility] Comment on above: Performed By: #### L [id number] ####[facility] [place] [address] CBCon 11-03-2023 Erythrocyte distribution width (RBC) [Ratio] 16.6 % High 11.5-15.0 [facility] Comment on above: Performed By: #### L [id number] ####[facility] [place] [address] ERYTHROCYTE MEAN CORPUSCULAR HEMOGLOBIN CONCENTRATION (G/DL) BY AUTOMATED 31.6 g/dL Low 32.0-35.0 [facility] Comment on above: Performed By: #### L [id number] ####[facility] [place] [address] Hematocrit (Bld) [Volume fraction] 27.2 % Low 39.0-55.0 [facility] Comment on above: Performed By: #### L [id number] ####[facility] [place] [address] Hemoglobin (Bld) [Mass/Vol] 8.6 g/dL Low 13.0-17.0 [facility] Comment on above: Performed By: #### L [id number] ####[facility] [address] MCH (RBC) [Entitic mass] 26.5 pg Low 27.0-33.0 [facility] Comment on above: Performed By: #### L [id number] ####[facility] [place] [address] MCV (RBC) [Entitic vol] 83.7 fL Normal 82.0-98.0 [facility] Comment on above: Performed By: #### L [id number] ####[facility] [place] [address] PLATELETS (10*3/UL) IN BLOOD AUTOMATED COUNT 157 10*3/uL Normal 150-400 [facility] Comment on above: Performed By: #### L [id number] ####[facility] [place] [address] RBC (Bld) [#/Vol] 3.25 10*6/uL Low 4.20-5.70 [facility] Comment on above: Performed By: #### L [id number] ####[facility] [place] [address] WBC (Bld) [#/Vol] 5.95 10*3/uL Normal 4.00-10.60 [facility] Comment on above: Performed By: #### L [id number] ####[facility] [address] CONSULTon 11-03-2023 CONSULT Normal [facility] DIGOXIN LEVELon 11-03-2023 DIGOXIN (NG/ML) IN SER/PLAS 0.5 ng/mL Low 0.7-2 [facility] Comment on above: Performed By: #### L [id number] ####[facility] [place] [address] FERRITINon 11-03-2023 FERRITIN (NG/ML) IN SER/PLAS 79.0 ng/mL Normal 24.0-336.0 [facility] Comment on above: Performed By: #### L [id number] ####[facility] [place] [address] FOLATEon 11-03-2023 FOLATE (NG/ML) IN SER/PLAS 11.28 ng/mL Normal 6.6-1000 [facility] Comment on above: Performed By: #### L [id number] ####[facility] [place] [address] IRON AND TIBCon 11-03-2023 IRON (UG/DL) IN SER/PLAS 12 ug/dL Low 50-212 [facility] Comment on above: Performed By: #### L [id number] ####[facility] [place] [address] IRON BINDING CAPACITY (UG/DL) IN SER/PLAS 277 ug/dL Normal 250-450 [facility] Comment on above: Performed By: #### L [id number] ####[facility] [place] [address] IRON BINDING CAPACITY.UNSATURATED (UG/DL) IN SER/PLAS 265.0 ug/dL Normal 155.0-355.0 [facility] Comment on above: Performed By: #### L [id number] ####[facility] [place] [address] IRON SATURATION (%) IN SER/PLAS 4 % Low 20-50 [facility] Comment on above: Performed By: #### L [id number] ####[facility] [place] [address] NURSNOTEon 11-03-2023 NURSNOTE Normal [facility] OSMOLALITYon 11-03-2023 OSMOLALITY MEASURED 281 mOsm/kg Normal 275-295 [facility] Comment on above: Order Comment: Add o n Result Comment: Test Performed by [employer] [address] [place] [address] - Released 11/03/2023 17:29 Performed By: #### L [id number] ####[employer] [id number] [place] [address] POCT GLUCOSE METER UNSOLICIT ED RESULTSon 11-03-2023 Glucose [Mass/Vol] 147 mg/dL High 70-105 [facility] Comment on above: Order Comment: Waive d Testing in the ED is performed under the ED CLIA certificate #[id number]. Result Comment: [email or web address] Performed By: #### L [id number] ####[facility] [place] [address] Glucose [Mass/Vol] 201 mg/dL High 70-105 [facility] Comment on above: Order Comment: Waive d Testing in the ED is performed under the ED CLIA certificate #[id number]. Result Comment: [email or web address] [email or web address] Performed By: #### L [id number] ####[facility] ([employer])[address] [place] [address] Glucose [Mass/Vol] 243 mg/dL High 70-105 [facility] Comment on above: Order Comment: Waive d Testing in the ED is performed under the ED CLIA certificate #[id number]. Result Comment: [email or web address] [email or web address] Performed By: #### L [id number] ####[facility] [place] [address] Glucose [Mass/Vol] 118 mg/dL High 70-105 [facility] Comment on above: Order Comment: Waive d Testing in the ED is performed under the ED CLIA certificate #[id number]. Result Comment: [email or web address] Performed By: #### L [id number] ####[facility] [place] [address] Glucose [Mass/Vol] 112 mg/dL High 70-105 [facility] Comment on above: Order Comment: Waive d Testing in the ED is performed under the ED CLIA certificate #[id number]. Result Comment: fbar aka Performed By: #### L [id number] ####[facility] [place] [address] VITAMIN B12on 11-03-2023 Cobalamin (Vitamin B12) [Mass/Vol] 1448 pg/mL High 180-914 [facility] Comment on above: Result Comment: REFE RENCE RANGES:180-914 pg/mL Fnxyaz687-749 pg/mL Indeterminate<145 pg/mL Deficient Performed By: #### L [id number] ####[facility] [place] [address] 36on 11-02-2023 36 Spoke with Sonia Dey and Ijeoma. Asking about maintaining the line. Asked for them to flush until his appt. states they are seeing vascular today and they hope he is admitted for an amputation. [facility] 36 Spoke with Beth Dey Caring stated for the pt to maintain his line and flush it until his upcoming appt 11/09 [facility] CBC WITH AUTO DIFFERENTIALon 11-02-2023 Basophils (Bld) [#/Vol] 0.01 10*3/uL Normal 0.00-0.20 [facility] Comment on above: Performed By: #### L [id number] ####[facility] [place] [address] Basophils/100 WBC (Bld) 0.1 % Normal 0.0-1.0 [facility] Comment on above: Performed By: #### L [id number] ####[facility] [place] [address] Eosinophils (Bld) [#/Vol] 0.01 10*3/uL Normal 0.00-0.50 [facility] Comment on above: Performed By: #### L [id number] ####[facility] [place] [address] Eosinophils/100 WBC (Bld) 0.1 % Normal 0.0-6.0 [facility] Comment on above: Performed By: #### L [id number] ####[facility] [place] [address] Erythrocyte distribution width (RBC) [Ratio] 16.7 % High 11.5-15.0 [facility] Comment on above: Performed By: #### L [id number] ####[facility] [place] [address] ERYTHROCYTE MEAN CORPUSCULAR HEMOGLOBIN CONCENTRATION (G/DL) BY AUTOMATED 32.6 g/dL Normal 32.0-35.0 [facility] Comment on above: Performed By: #### L [id number] ####[facility] [place] [address] Hematocrit (Bld) [Volume fraction] 27.3 % Low 39.0-55.0 [facility] Comment on above: Performed By: #### L [id number] ####[facility] [place] [address] Hemoglobin (Bld) [Mass/Vol] 8.9 g/dL Low 13.0-17.0 [facility] Comment on above: Performed By: #### L [id number] ####[facility] [place] [address] Immature granulocytes (Bld) [#/Vol] 0.04 10*3/uL Normal 0.00-0.20 [facility] Comment on above: Performed By: #### L [id number] ####[facility] [place] [address] Immature granulocytes/100 WBC (Bld) 0.6 % Normal 0.0-1.0 [facility] Comment on above: Performed By: #### L [id number] ####[facility] [place] [address] Lymphocytes (Bld) [#/Vol] 0.32 10*3/uL Low 1.20-4.00 [facility] Comment on above: Performed By: #### L [id number] ####[facility] [place] [address] Lymphocytes/100 WBC (Bld) 4.6 % Low 20.0-45.0 [facility] Comment on above: Performed By: #### L [id number] ####[facility] [place] [address] MCH (RBC) [Entitic mass] 27.2 pg Normal 27.0-33.0 [facility] Comment on above: Performed By: #### L [id number] ####[facility] [place] [address] MCV (RBC) [Entitic vol] 83.5 fL Normal 82.0-98.0 [facility] Comment on above: Performed By: #### L [id number] ####[facility] [place] [address] Monocytes (Bld) [#/Vol] 0.96 10*3/uL Normal 0.10-1.00 [facility] Comment on above: Performed By: #### L [id number] ####[facility])[address] [place] [address] Monocytes/100 WBC (Bld) 13.7 % High 5.0-12.0 [facility] Comment on above: Performed By: #### L [id number] ####[facility] [place] [address] Neutrophils (Bld) [#/Vol] 5.66 10*3/uL Normal 1.60-7.60 [facility] Comment on above: Performed By: #### L [id number] ####[facility] [place] [address] Neutrophils/100 WBC (Bld) 80.9 % High 40.0-72.0 [facility] Comment on above: Performed By: #### L [id number] ####[facility] [place] [address] NRBC (PER 100 WBCS) BY AUTOMATED COUNT 0.0 % Normal 0 [facility] Comment on above: Performed By: #### L [id number] ####[facility] [place] [address] PLATELETS (10*3/UL) IN BLOOD AUTOMATED COUNT 165 10*3/uL Normal 150-400 [facility] Comment on above: Performed By: #### L [id number] ####[facility] [place] [address] RBC (Bld) [#/Vol] 3.27 10*6/uL Low 4.20-5.70 [facility] Comment on above: Performed By: #### L [id number] ####[facility] [place] [address] WBC (Bld) [#/Vol] 7.00 10*3/uL Normal 4.00-10.60 [facility] Comment on above: Performed By: #### L [id number] ####[facility] [place] [address] COMPREHENSIVE METABOLIC PANE Sridhar 11-02-2023 Albumin [Mass/Vol] 3.1 g/dL Low 3.5-5.7 [facility] Comment on above: Performed By: #### L [id number] ####[facility])[address] [place] [address] ALP [Catalytic activity/Vol] 159 U/L High 34-104 [facility] Comment on above: Performed By: #### L [id number] ####[facility] [place] [address] ALT [Catalytic activity/Vol] 157 U/L High 7-52 [facility] Comment on above: Performed By: #### L [id number] ####[facility])[address] [place] [address] Anion gap [Moles/Vol] 8 mmol/L Normal 7-20 [facility] Comment on above: Performed By: #### L [id number] ####[facility] [place] [address] AST [Catalytic activity/Vol] 102 U/L High 13-39 [facility] Comment on above: Performed By: #### L [id number] ####[facility] [place] [address] Bilirubin [Mass/Vol] 0.5 mg/dL Normal 0.3-1.0 [facility] Comment on above: Performed By: #### L [id number] ####[facility] [place] [address] Calcium [Mass/Vol] 8.6 mg/dL Normal 8.6-10.3 [facility] Comment on above: Performed By: #### L [id number] ####[facility] [place] [address] Chloride [Moles/Vol] 93 mmol/L Low 98-107 [facility] Comment on above: Performed By: #### L [id number] ####[facility] ([facility])[address] [place] [address] CO2 [Moles/Vol] 30 mmol/L Normal 21-31 [facility] Comment on above: Performed By: #### L [id number] ####[facility] [place] [address] Creatinine [Mass/Vol] 0.49 mg/dL Low 0.70-1.30 [facility] Comment on above: Performed By: #### L [id number] ####[facility] [place] [address] GLOMERULAR FILTRATION RATE ML/MIN/1.73 SQ M.PREDICTED 106.4 mL/min/1.73m*2 Normal >60.0 [facility] Comment on above: Result Comment: [facility]???s estimated glomerular filtration rate (eGFR) will [...] of individuals. Performed By: #### L [id number] ####[facility] [place] [address] Glucose [Mass/Vol] 128 mg/dL High 70-100 [facility] Comment on above: Performed By: #### L [id number] ####[facility] [place] [address] Potassium [Moles/Vol] 3.5 mmol/L Normal 3.5-5.1 [facility] Comment on above: Performed By: #### L [id number] ####[facility] [place] [address] Protein [Mass/Vol] 6.5 g/dL Normal 6.0-8.3 [facility] Comment on above: Performed By: #### L [id number] ####[facility] ([facility])[address] [place] [address] Sodium [Moles/Vol] 127 mmol/L Low 136-145 [facility] Comment on above: Performed By: #### L [id number] ####[facility] ([facility])[address] [place] [address] Urea nitrogen [Mass/Vol] 11 mg/dL Normal 7-25 [facility] Comment on above: Performed By: #### L [id number] ####[facility] ([facility])[address] [place] [address] UREA NITROGEN/CREATININE (MASS RATIO) IN SER/PLAS 22.4 [facility] Comment on above: Performed By: #### L [id number] ####[facility] ([facility])[address] [place] [address] Follow-Upon 11-02-2023 Follow-Up [facility] HPon 11-02-2023 HP [facility] MAGNESIUMon 11-02-2023 Magnesium [Mass/Vol] 1.9 mg/dL Normal 1.9-2.7 [facility] Comment on above: Performed By: #### L [id number] ####[facility] ([facility])[address] [place] [address] PHOSPHORUSon 11-02-2023 Magnesium [Mass/Vol] 3.2 mg/dL Normal 2.5-5.0 [facility] Comment on above: Performed By: #### L AB113 ####[facility] ([facility])[address] [place] [address] POCT GLUCOSE METER UNSOLICIT ED RESULTSon 11-02-2023 Glucose [Mass/Vol] 159 mg/dL High 70-105 [facility] Comment on above: Order Comment: Waive d Testing in the ED is performed under the ED CLIA certificate #[id number]. Result Comment: [email or web address] Performed By: #### L [id number] ####[facility] ([facility])[address] [place] [address] 36on 11-01-2023 36 LM attempted to call patient no answer so left a message for patient to call us back we could see him today with javier at 1045/11 or tomorrow with chauncey at 130 [facility] Orders Onlyon 10-27-2023 Orders Only [facility] BLOOD UREA NITROGENon 2023 Urea nitrogen [Mass/Vol] 15 mg/dL Normal 5-27 [facility] Comment on above: Performed By: #### C RT, CBCA, 4091-3, 3094-0 #### [facility] ([id number]) [address] [place] [address] 60992 CBC AND AUTO DIFFon 10-26-19 24 ABSOLUTE BASOPHIL 0.0 X10E9/L Normal 0.0-0.2 [facility] Comment on above: Performed By: #### C RT, CBCA, 4091-3, 3094-0 #### [facility] ([id number]) [address] [place] [address] 43519 ABSOLUTE NEUTROPHIL 4.3 X10E9/L Normal 1.5-6.6 [facility] Comment on above: Performed By: #### C RT, CBCA, 4091-12, 3094-0 #### [facility] ([id number]) [address] [place] [address] 32180 Basophils/100 WBC (Bld) 0.4 % Normal [facility] Comment on above: Performed By: #### C RT, CBCA, 3, 3094-0 #### [facility] ([id number]) [address] [place] [address] 77186 Eosinophils (Bld) [#/Vol] 0.0 10*3/uL Normal 0.0-0.4 [facility] Comment on above: Performed By: #### C RT, CBCA, 4091-3, 3094-0 #### [facility] ([id number]) [address] [place] [address] 29202 Eosinophils/100 WBC (Bld) 0.6 % Normal [facility] Comment on above: Performed By: #### C RT, CBCA, 4091-3, 3094-0 #### [facility] ([id number]) [address] [place] [address] 89670 Erythrocyte distribution width (RBC) [Ratio] 18.5 % High 11.5-15.0 [facility] Comment on above: Performed By: #### C RT, CBCA, 2-3, 3094-0 #### [facility] ([id number]) [address] [place] [address] 67965 Hematocrit (Bld) [Volume fraction] 28.0 % Low 39-49 [facility] Comment on above: Performed By: #### C RT, CBCA, 4091-3, 3094-0 #### [facility] ([id number]) [address] [place] [address] 75268 Hemoglobin (Bld) [Mass/Vol] 9.1 g/dL Low 13.0-17.0 [facility] Comment on above: Performed By: #### C RT, CBCA, 4091-, 3094-0 #### [facility] ([id number]) [address] [place] [address] 21226 Lymphocytes (Bld) [#/Vol] 0.3 10*3/uL Low 1.0-3.5 [facility] Comment on above: Performed By: #### C RT, CBCA, 4091-3, 3094-0 #### [facility] ([id number]) [address] [place] [address] 34612 Lymphocytes/100 WBC (Bld) 5.4 % Normal [facility] Comment on above: Performed By: #### C RT, CBCA, 4091-3, 3094-0 #### [facility] ([id number]) [address] [place] [address] 43654 MCH (RBC) [Entitic mass] 27.0 pg Normal 27-34 [facility] Comment on above: Performed By: #### C RT, CBCA, 4091-3, 3094-0 #### [facility] ([id number]) [address] [place] [address] 84301 MCHC (RBC) [Mass/Vol] 32.5 g/dL Normal 32-36 [facility] Comment on above: Performed By: #### C RT, CBCA, 4092-3, 3094-0 #### [facility] ([id number]) [address] [place] [address] 86731 MCV (RBC) [Entitic vol] 83 fL Normal 80-100 [facility] Comment on above: Performed By: #### C RT, CBCA, 4091-3, 3094-0 #### [facility] ([id number]) [address] [place] [address] 23905 Monocytes (Bld) [#/Vol] 0.7 10*3/uL Normal 0-0.9 [facility] Comment on above: Performed By: #### C RT, CBCA, 4091-3, 3094-0 #### [facility] ([id number]) [address] [place] [address] 06658 Monocytes/100 WBC (Bld) 12.6 % Normal [facility] Comment on above: Performed By: #### C RT, CBCA, 4091-3, 3094-0 #### [facility] ([id number]) [address] [place] [address] 89271 Neutrophils/100 WBC (Bld) 81.0 % Normal [facility] Comment on above: Performed By: #### C RT, CBCA, 4091-3, 3094-0 #### [facility] ([id number]) [address] [place] [address] 98298 Platelet mean volume (Bld) [Entitic vol] 8.2 fL Normal 7-12 [facility] Comment on above: Performed By: #### C RT, CBCA, 4091-3, 3094-0 #### [facility] ([id number]) [address] [place] [address] 94419 Platelets (Bld) [#/Vol] 197 10*3/uL Normal 150-450 [facility] Comment on above: Performed By: #### C RT, CBCA, 4092-3, 3094-0 #### [facility] ([id number]) [address] [place] [address] 95068 RBC COUNT 3.37 X10E12/L Low 4.10-5.70 [facility] Comment on above: Performed By: #### C RT, CBCA, 4092-3, 3094-0 #### [facility] ([id number]) [address] [place] [address] 05944 WBC (Bld) [#/Vol] 5.3 10*3/uL Normal 4.0-11.0 [facility] Comment on above: Performed By: #### C RT, CBCA, 4092-3, 3094-0 #### [facility] ([id number]) [address] [place] [address] 11862 CREATININEon 10-26-2023 Creatinine [Mass/Vol] 0.35 mg/dL Low 0.70-1.20 [facility] Comment on above: Result Comment: METH OD TRACEABLE TO IDMS STANDARD Performed By: #### C RT, CBCA, 4092-3, 3094-0 #### [facility] ([id number]) [address] [place] [address] 79894 eGFR (CKD-EPI) NON-RACE DEPENDENT >90 Normal >59 [facility] Comment on above: Result Comment: Reported eGFR is based on the CKD-EPI 2020 equation that does not use a race coefficient. Performed By: #### C RT, CBCA, 4092-3, 3094-0 #### [facility] ([id number]) [address] [place] [address] 46602 CRP [Mass/Vol]on 10-26-2023 C REACTIVE PROTEIN 4.9 mg/dL High 0.000-0.744 [facility] Comment on above: Performed By: #### C RT, CBCA, 4092-3, 3094-0 #### [facility] ([id number]) [address] [place] [address] 78962 Follow-Upon 10-26-2023 Follow-Up Normal [facility] Vancomycin trough [Mass/Vol] on 10-26-2023 VANCOMYCIN TROUGH 12.4 ug/mL Normal 5.0-20.0 [facility] Comment on above: Performed By: #### C RT, CBCA, 4091-3, 3094-0 #### [facility] ([id number]) [address] [place] [address] 91893 36on 10-20-2023 36 Labs in [facility] an fausto Verna is adding weekly CRP. Normal [facility] BLOOD UREA NITROGENon 2023 Urea nitrogen [Mass/Vol] 10 mg/dL Normal 5-27 [facility] Comment on above: Performed By: #### C RT, CBCA, 4091-3, 3094-0 #### [facility] ([id number]) [address] [place] [address] 67095 CBC AND AUTO DIFFon 10-19-19 24 ABSOLUTE BASOPHIL 0.0 X10E9/L Normal 0.0-0.2 [facility] Comment on above: Performed By: #### C RT, CBCA, 4092-3, 3094-0 #### [facility] ([id number]) [address] [place] [address] 58476 ABSOLUTE NEUTROPHIL 3.1 X10E9/L Normal 1.5-6.6 [facility] Comment on above: Performed By: #### C RT, CBCA, 4092-3, 3094-0 #### [facility] ([id number]) [address] [place] [address] 35604 Basophils/100 WBC (Bld) 0.4 % Normal [facility] Comment on above: Performed By: #### C RT, CBCA, 4092-3, 3094-0 #### [facility] ([id number]) [address] [place] [address] 25561 Eosinophils (Bld) [#/Vol] 0.0 10*3/uL Normal 0.0-0.4 [facility] Comment on above: Performed By: #### C RT, CBCA, 2-3, 3094-0 #### [facility] ([id number]) [address] [place] [address] 06743 Eosinophils/100 WBC (Bld) 0.8 % Normal [facility] Comment on above: Performed By: #### C RT, CBCA, 4091-3, 3094-0 #### [facility] ([id number]) [address] [place] [address] 50100 Erythrocyte distribution width (RBC) [Ratio] 17.7 % High 11.5-15.0 [facility] Comment on above: Performed By: #### C RT, CBCA, 4091-3, 3094-0 #### [facility] ([id number]) [address] [place] [address] 22465 Hematocrit (Bld) [Volume fraction] 27.3 % Low 39-49 [facility] Comment on above: Performed By: #### C RT, CBCA, 2-3, 3094-0 #### [facility] ([id number]) [address] [place] [address] 47402 Hemoglobin (Bld) [Mass/Vol] 8.8 g/dL Low 13.0-17.0 [facility] Comment on above: Performed By: #### C RT, CBCA, 4091-3, 3094-0 #### [facility] ([id number]) [address] [place] [address] 98054 Lymphocytes (Bld) [#/Vol] 0.2 10*3/uL Low 1.0-3.5 [facility] Comment on above: Performed By: #### C RT, CBCA, 4091-3, 3094-0 #### [facility] ([id number]) [address] [place] [address] 26219 Lymphocytes/100 WBC (Bld) 6.2 % Normal [facility] Comment on above: Performed By: #### C RT, CBCA, 3, 3094-0 #### [facility] ([id number]) [address] [place] [address] 65517 MCH (RBC) [Entitic mass] 27.1 pg Normal 27-34 [facility] Comment on above: Performed By: #### C RT, CBCA, 3, 3094-0 #### [facility] ([id number]) [address] [place] [address] 26518 MCHC (RBC) [Mass/Vol] 32.2 g/dL Normal 32-36 [facility] Comment on above: Performed By: #### C RT, CBCA, 3, 3094-0 #### [facility] ([id number]) [address] [place] [address] 65939 MCV (RBC) [Entitic vol] 84 fL Normal 80-100 [facility] Comment on above: Performed By: #### C RT, CBCA, 4091-3, 3094-0 #### [facility] ([id number]) [address] [place] [address] 80303 Monocytes (Bld) [#/Vol] 0.5 10*3/uL Normal 0-0.9 [facility] Comment on above: Performed By: #### C RT, CBCA, 4091-3, 3094-0 #### [facility] ([id number]) [address] [place] [address] 10076 Monocytes/100 WBC (Bld) 11.9 % Normal [facility] Comment on above: Performed By: #### C RT, CBCA, 4091-3, 3094-0 #### [facility] ([id number]) [address] [place] [address] 77277 Neutrophils/100 WBC (Bld) 80.7 % Normal [facility] Comment on above: Performed By: #### C RT, CBCA, 4091-3, 3094-0 #### [facility] ([id number]) [address] [place] [address] 21041 Platelet mean volume (Bld) [Entitic vol] 9.2 fL Normal 7-12 [facility] Comment on above: Performed By: #### C RT, CBCA, 3, 3094-0 #### [facility] ([id number]) [address] [place] [address] 54944 Platelets (Bld) [#/Vol] 109 10*3/uL Low 150-450 [facility] Comment on above: Performed By: #### C RT, CBCA, 4091-3, 3094-0 #### [facility] ([id number]) [address] [place] [address] 50308 RBC COUNT 3.25 X10E12/L Low 4.10-5.70 [facility] Comment on above: Performed By: #### C RT, CBCA, 4091-3, 3094-0 #### [facility] ([id number]) [address] [place] [address] 58275 WBC (Bld) [#/Vol] 3.8 10*3/uL Low 4.0-11.0 [facility] Comment on above: Performed By: #### C RT, CBCA, 4092-3, 3094-0 #### [facility] ([id number]) [address] [place] [address] 76897 CREATININEon 10-19-2023 Creatinine [Mass/Vol] 0.40 mg/dL Low 0.70-1.20 [facility] Comment on above: Result Comment: METH OD TRACEABLE TO IDMS STANDARD Performed By: #### C RT, CBCA, 4092-3, 3094-0 #### [facility] ([id number]) [address] [place] [address] 14825 eGFR (CKD-EPI) NON-RACE DEPENDENT >90 Normal >59 [facility] Comment on above: Result Comment: Reported eGFR is based on the CKD-EPI 2020 equation that does not use a race coefficient. Performed By: #### C RT, CBCA, 4092-3, 3094-0 #### [facility] ([id number]) [address] [place] [address] 42442 Vancomycin trough [Mass/Vol] on 10-19-2023 VANCOMYCIN TROUGH 12.9 ug/mL Normal 5.0-20.0 [facility] Comment on above: Performed By: #### C RT, CBCA, 4092-3, 3094-0 #### [facility] ([id number]) [address] [place] [address] 15597 Follow-Upon 10-17-2023 Follow-Up [facility] 36on 10-13-2023 36 Yes, I agree with patient going to ER. He is currently at [facility] in [place]. Thanks!. [facility] 36 Spoke with pt yesterday lab called about a critical lab on Hemoglobin stated to have the pt go to the ER as soon as possible. Labs are in social [employer] [facility] HEMOGLOBINon 10-13-2023 Hemoglobin (Bld) [Mass/Vol] 8.9 g/dL Low 13.0-17.0 [facility] Comment on above: Performed By: #### C RT, CBCA, 2-3, 3094-0 #### [facility] ([id number]) [address] [place] [address] 15701 Hematocrit Auto (Bld) [Volum e fraction]on 10-13-2023 Hematocrit (Bld) [Volume fraction] 27.0 % Low 39-49 [facility] Comment on above: Performed By: #### C RT, CBCA, 4091-3, 3094-0 #### [facility] ([id number]) [address] [place] [address] 89082 36on 10-12-2023 36 Spoke with Paula mckeon [facility] about a critical lab of Hemoglobin of 6.3 stated to please call his PCP. I called pt and spoke with his Ijeoma and stated pt needs to go to the ER alessandra. His stated they will go to [facility] in [facility] BLOOD UREA NITROGENon 2023 Urea nitrogen [Mass/Vol] 11 mg/dL Normal 5-27 [facility] Comment on above: Performed By: #### C RT, 4091-3, 3094-0, CBCA #### [facility] ([id number]) [address] [place] [address] 13014 CBC AND AUTO DIFFon 10-12-19 24 ABSOLUTE BASOPHIL 0.0 X10E9/L Normal 0.0-0.2 [facility] Comment on above: Performed By: #### C RT, CBCA, 4092-3, 3094-0 #### [facility] ([id number]) [address] [place] [address] 12460 ABSOLUTE NEUTROPHIL 1.8 X10E9/L Normal 1.5-6.6 [facility] Comment on above: Performed By: #### C RT, CBCA, 4092-3, 3094-0 #### [facility] ([id number]) [address] [place] [address] 93701 Basophils/100 WBC (Bld) 0.6 % Normal [facility] Comment on above: Performed By: #### C RT, CBCA, 4091-3, 3094-0 #### [facility] ([id number]) [address] [place] [address] 62907 Eosinophils (Bld) [#/Vol] 0.0 10*3/uL Normal 0.0-0.4 [facility] Comment on above: Performed By: #### C RT, CBCA, 3, 3094-0 #### [facility] ([id number]) [address] [place] [address] 88002 Eosinophils/100 WBC (Bld) 0.4 % Normal [facility] Comment on above: Performed By: #### C RT, CBCA, 4091-12, 3094-0 #### [facility] ([id number]) [address] [place] [address] 47695 Erythrocyte distribution width (RBC) [Ratio] 18.0 % High 11.5-15.0 [facility] Comment on above: Performed By: #### C RT, CBCA, 4091-3, 3094-0 #### [facility] ([id number]) [address] [place] [address] 32938 Hematocrit (Bld) [Volume fraction] 19.0 % Low 39-49 [facility] Comment on above: Performed By: #### C RT, CBCA, 4091-3, 3094-0 #### [facility] ([id number]) [address] [place] [address] 65677 Hemoglobin (Bld) [Mass/Vol] 6.1 g/dL Critically low 13.0-17.0 [facility] Comment on above: Performed By: #### C RT, CBCA, 4091-3, 3094-0 #### [facility] ([id number]) [address] [place] [address] 19582 Lymphocytes (Bld) [#/Vol] 0.1 10*3/uL Low 1.0-3.5 [facility] Comment on above: Performed By: #### C RT, CBCA, 4091-3, 3094-0 #### [facility] ([id number]) [address] [place] [address] 27677 Lymphocytes/100 WBC (Bld) 5.9 % Normal [facility] Comment on above: Performed By: #### C RT, CBCA, 4091-3, 3094-0 #### [facility] ([id number]) [address] [place] [address] 64178 MCH (RBC) [Entitic mass] 26.8 pg Low 27-34 [facility] Comment on above: Performed By: #### C RT, CBCA, 4091-3, 3094-0 #### [facility] ([id number]) [address] [place] [address] 94967 MCHC (RBC) [Mass/Vol] 32.1 g/dL Normal 32-36 [facility] Comment on above: Performed By: #### C RT, CBCA, 3, 3094-0 #### [facility] ([id number]) [address] [place] [address] 35334 MCV (RBC) [Entitic vol] 83 fL Normal 80-100 [facility] Comment on above: Performed By: #### C RT, CBCA, 4091-3, 3094-0 #### [facility] ([id number]) [address] [place] [address] 44779 Monocytes (Bld) [#/Vol] 0.4 10*3/uL Normal 0-0.9 [facility] Comment on above: Performed By: #### C RT, CBCA, 4091-3, 3094-0 #### [facility] ([id number]) [address] [place] [address] 07258 Monocytes/100 WBC (Bld) 15.7 % Normal [facility] Comment on above: Performed By: #### C RT, CBCA, 4091-3, 3094-0 #### [facility] ([id number]) [address] [place] [address] 30935 Neutrophils/100 WBC (Bld) 77.4 % Normal [facility] Comment on above: Performed By: #### C RT, CBCA, 4091-3, 3094-0 #### [facility] ([id number]) [address] [place] [address] 34376 Platelet mean volume (Bld) [Entitic vol] 9.0 fL Normal 7-12 [facility] Comment on above: Performed By: #### C RT, CBCA, 3, 3094-0 #### [facility] ([id number]) [address] [place] [address] 92600 Platelets (Bld) [#/Vol] 94 10*3/uL Low 150-450 [facility] Comment on above: Performed By: #### C RT, CBCA, 4091-3, 3094-0 #### [facility] ([id number]) [address] [place] [address] 82188 RBC COUNT 2.29 X10E12/L Low 4.10-5.70 [facility] Comment on above: Performed By: #### C RT, CBCA, 4091-3, 3094-0 #### [facility] ([id number]) [address] [place] [address] 41328 WBC (Bld) [#/Vol] 2.4 10*3/uL Low 4.0-11.0 [facility] Comment on above: Performed By: #### C RT, CBCA, 4092-3, 3094-0 #### [facility] ([id number]) [address] [place] [address] 53699 Eosinophils/100 WBC (Bld) 0.9 % Normal [facility] Comment on above: Performed By: #### C RT, CBCA, 4091-3, 3094-0 #### [facility] ([id number]) [address] [place] [address] 44227 Erythrocyte distribution width (RBC) [Ratio] 17.6 % High 11.5-15.0 [facility] Comment on above: Performed By: #### C RT, CBCA, 4091-3, 3094-0 #### [facility] ([id number]) [address] [place] [address] 55698 Hematocrit (Bld) [Volume fraction] 19.5 % Low 39-49 [facility] Comment on above: Performed By: #### C RT, CBCA, 4091-3, 3094-0 #### [facility] ([id number]) [address] [place] [address] 35712 Hemoglobin (Bld) [Mass/Vol] 6.3 g/dL Critically low 13.0-17.0 [facility] Comment on above: Performed By: #### C RT, CBCA, 4091-3, 3094-0 #### [facility] ([id number]) [address] [place] [address] 34676 Lymphocytes/100 WBC (Bld) 3.8 % Normal [facility] Comment on above: Performed By: #### C RT, CBCA, 4091-3, 3094-0 #### [facility] ([id number]) [address] [place] [address] 80459 MCH (RBC) [Entitic mass] 26.6 pg Low 27-34 [facility] Comment on above: Performed By: #### C RT, CBCA, 4091-3, 3094-0 #### [facility] ([id number]) [address] [place] [address] 45369 Monocytes (Bld) [#/Vol] 0.2 10*3/uL Normal 0-0.9 [facility] Comment on above: Performed By: #### C RT, CBCA, 4091-3, 3094-0 #### [facility] ([id number]) [address] [place] [address] 12881 Monocytes/100 WBC (Bld) 10.4 % Normal [facility] Comment on above: Performed By: #### C RT, CBCA, 4091-3, 3094-0 #### [facility] ([id number]) [address] [place] [address] 48561 Neutrophils (Bld) [#/Vol] 1.7 10*3/uL Normal 1.5-6.6 [facility] Comment on above: Performed By: #### C RT, CBCA, 4091-3, 3094-0 #### [facility] ([id number]) [address] [place] [address] 81442 OVALOCYTE 2+ Abnormal NONE [facility] Comment on above: Performed By: #### C RT, CBCA, 4091-3, 3094-0 #### [facility] ([id number]) [address] [place] [address] 82742 Platelet mean volume (Bld) [Entitic vol] 8.8 fL Normal 7-12 [facility] Comment on above: Performed By: #### C RT, CBCA, 4091-3, 3094-0 #### [facility] ([id number]) [address] [place] [address] 55894 Platelets (Bld) [#/Vol] 87 10*3/uL Low 150-450 P [facility] Comment on above: Performed By: #### C RT, CBCA, 4091-3, 3094-0 #### [facility] ([id number]) [address] [place] [address] 51530 RBC COUNT 2.35 X10E12/L Low 4.10-5.70 [facility] Comment on above: Performed By: #### C RT, CBCA, 4091-3, 3094-0 #### [facility] ([id number]) [address] [place] [address] 92790 SEG NEUTROPHIL 84.9 % Normal [facility] Comment on above: Performed By: #### C RT, CBCA, 4091-3, 3094-0 #### [facility] ([id number]) [address] [place] [address] 07494 TEARDROP 1+ Abnormal NONE [facility] Comment on above: Performed By: #### C RT, CBCA, 3, 3094-0 #### [facility] ([id number]) [address] [place] [address] 91926 WBC (Bld) [#/Vol] 2.0 10*3/uL Low 4.0-11.0 [facility] Comment on above: Performed By: #### C RT, CBCA, 4091-3, 3094-0 #### [facility] ([id number]) [address] [place] [address] 54730 COMPREHENSIVE METABOLIC PANE Sridhar 10-12-2023 Albumin [Mass/Vol] 2.6 g/dL Low 3.2-5.3 [facility] Comment on above: Performed By: #### C RT, CBCA, 4091-3, 3094-0 #### [facility] ([id number]) [address] [place] [address] 17497 ALP [Catalytic activity/Vol] 88 U/L Normal 39-130 [facility] Comment on above: Performed By: #### C RT, CBCA, 4091-3, 3094-0 #### [facility] ([id number]) [address] [place] [address] 87175 ALT [Catalytic activity/Vol] 45 U/L High 0-40 [facility] Comment on above: Performed By: #### C RT, CBCA, 4091-3, 3094-0 #### [facility] ([id number]) [address] [place] [address] 99113 Anion gap [Moles/Vol] 6 mmol/L Normal 5-15 [facility] Comment on above: Performed By: #### C RT, CBCA, 3, 3094-0 #### [facility] ([id number]) [address] [place] [address] 91008 AST [Catalytic activity/Vol] 54 U/L High 0-41 [facility] Comment on above: Performed By: #### C RT, CBCA, 3, 3094-0 #### [facility] ([id number]) [address] [place] [address] 44978 Bilirubin [Mass/Vol] 0.5 mg/dL Normal 0.3-1.2 [facility] Comment on above: Performed By: #### C RT, CBCA, 3, 3094-0 #### [facility] ([id number]) [address] [place] [address] 31397 Calcium [Mass/Vol] 7.7 mg/dL Low 8.5-10.5 [facility] Comment on above: Performed By: #### C RT, CBCA, 4091-3, 3094-0 #### [facility] ([id number]) [address] [place] [address] 08124 Chloride [Moles/Vol] 100 mmol/L Normal 98-109 [facility] Comment on above: Performed By: #### C MIGDALIA BAILEY, 3, 3094-0 #### [facility] ([id number]) [address] [place] [address] 80708 CO2 [Moles/Vol] 25 mmol/L Normal 22-32 [facility] Comment on above: Performed By: #### C MIGDALIA BAILEY, 3, 3094-0 #### [facility] ([id number]) [address] [place] [address] 39676 Creatinine [Mass/Vol] 0.39 mg/dL Low 0.70-1.20 [facility] [facility] Comment on above: Result Comment: METH OD TRACEABLE TO IDMS STANDARD Performed By: #### C MIGDALIA BAILEY, 4091-12, 3094-0 #### [facility] ([id number]) [address] [place] [address] 14438 eGFR (CKD-EPI) NON-RACE DEPENDENT >90 Normal >59 [facility] Comment on above: Result Comment: Reported eGFR is based on the CKD-EPI 2020 equation that does not use a race coefficient. Performed By: #### C MIGDALIA BAILEY, 4091-12, 3094-0 #### [facility] ([id number]) [address] [place] [address] 21551 Performed By: #### Sammy BAILEY, 4091-, 309-0, CBCA #### [facility] ([id number]) [address] [place] [address] 08275 Glucose [Mass/Vol] 142 mg/dL High 65-99 [facility] Comment on above: Performed By: #### C MIGDALIA BAILEY, 3, 3094-0 #### [facility] ([id number]) [address] [place] [address] 71508 Potassium [Moles/Vol] 3.5 mmol/L Normal 3.5-5.0 [facility] Comment on above: Performed By: #### C RT, CBCA, 4091-3, 3094-0 #### [facility] ([id number]) [address] [place] [address] 49240 Protein [Mass/Vol] 6.1 g/dL Normal 6.0-8.0 [facility] Comment on above: Performed By: #### C , CBCA, 4091-3, 3094-0 #### [facility] ([id number]) [address] [place] [address] 47050 Sodium [Moles/Vol] 131 mmol/L Low 134-146 [facility] Comment on above: Performed By: #### C , CBCA, 3, 3094-0 #### [facility] ([id number]) [address] [place] [address] 67762 Urea nitrogen [Mass/Vol] 12 mg/dL Normal 5-27 [facility] Comment on above: Performed By: #### C , CBCA, 3, 3094-0 #### [facility] ([id number]) [address] [place] [address] 00192 CREATININEon 10-12-2023 Creatinine [Mass/Vol] 0.47 mg/dL Low 0.70-1.20 [facility] Comment on above: Result Comment: METH OD TRACEABLE TO IDMS STANDARD Performed By: #### C , 4091-3, 3094-0, CBCA #### [facility] ([id number]) [address] [place] [address] 96712 Vancomycin trough [Mass/Vol] on 10-12-2023 VANCOMYCIN TROUGH 11.1 ug/mL Normal 5.0-20.0 [facility] Comment on above: Performed By: #### C , CBCA, 4091-3, 3094-0 #### [facility] ([id number]) [address] [place] [address] 66390 BLOOD UREA NITROGENon 2022 Urea nitrogen [Mass/Vol] 11 mg/dL Normal - [facility] Comment on above: Performed By: #### C RT, 4091-12, 309-0, CBCA #### [facility] ([id number]) [address] [place] [address] 18261 CBC AND AUTO DIFFon 10-05-20 ABSOLUTE BASOPHIL 0.0 X10E9/L Normal 0.0-0.2 [facility] Comment on above: Performed By: #### C RT, 4091-12, 0, CBCA #### [facility] ([id number]) [address] [place] [address] 94875 ABSOLUTE NEUTROPHIL 1.5 X10E9/L Normal 1.5-6.6 [facility] Comment on above: Performed By: #### Sammy RT, 4091-12, 0, CBCA #### [facility] ([id number]) [address] [place] [address] 87741 Basophils/100 WBC (Bld) 1.5 % Normal [facility] Comment on above: Performed By: #### C RT, 4091-12, 3090, CBCA #### [facility] ([id number]) [address] [place] [address] 19130 Eosinophils (Bld) [#/Vol] 0.0 10*3/uL Normal 0.0-0.4 [facility] Comment on above: Performed By: #### C RT, 4091-12, 3094-0, CBCA #### [facility] ([id number]) [address] [place] [address] 03935 Eosinophils/100 WBC (Bld) 1.7 % Normal [facility] Comment on above: Performed By: #### C RT, 4091-12, 309-0, CBCA #### [facility] ([id number]) [address] [place] [address] 12594 Erythrocyte distribution width (RBC) [Ratio] 18.5 % High 11.5-15.0 [facility] Comment on above: Performed By: #### C RT, 4091-12, 3094-0, CBCA #### [facility] ([id number]) [address] [place] [address] 62659 Hematocrit (Bld) [Volume fraction] 20.9 % Low 39-49 [facility] Comment on above: Performed By: #### Sammy RT, 4091-12, 0, CBCA #### [facility] ([id number]) [address] [place] [address] 46364 Hemoglobin (Bld) [Mass/Vol] 6.7 g/dL Critically low 13.0-17.0 [facility] Comment on above: Performed By: #### Sammy RT, 4091-12, 0, CBCA #### [facility] ([id number]) [address] [place] [address] 66994 Lymphocytes (Bld) [#/Vol] 0.2 10*3/uL Low 1.0-3.5 [facility] Comment on above: Performed By: #### Sammy RT, 4091-12, 0, CBCA #### [facility] ([id number]) [address] [place] [address] 25102 Lymphocytes/100 WBC (Bld) 9.7 % Normal [facility] Comment on above: Performed By: #### Sammy RT, 4091-12, 3093-0, CBCA #### [facility] ([id number]) [address] [place] [address] 05938 MCH (RBC) [Entitic mass] 27.6 pg Normal 27-34 [facility] Comment on above: Performed By: #### Sammy RT, 4091-12, 0, CBCA #### [facility] ([id number]) [address] [place] [address] 36078 MCHC (RBC) [Mass/Vol] 32.2 g/dL Normal 32-36 [facility] Comment on above: Performed By: #### Sammy RT, 4091-12, 3093-0, CBCA #### [facility] ([id number]) [address] [place] [address] 53217 MCV (RBC) [Entitic vol] 86 fL Normal 80-100 P [facility] Comment on above: Performed By: #### Sammy RT, 4091-12, 0, CBCA #### [facility] ([id number]) [address] [place] [address] 33185 Monocytes (Bld) [#/Vol] 0.3 10*3/uL Normal 0-0.9 [facility] Comment on above: Performed By: #### Sammy RT, 4091-12, 0, CBCA #### [facility] ([id number]) [address] [place] [address] 92133 Monocytes/100 WBC (Bld) 16.0 % Normal [facility] Comment on above: Performed By: #### Sammy RT, 4091-12, 0, CBCA #### [facility] ([id number]) [address] [place] [address] 90348 Neutrophils/100 WBC (Bld) 71.1 % Normal [facility] Comment on above: Performed By: #### Sammy RT, 4091-12, 3093-0, CBCA #### [facility] ([id number]) [address] [place] [address] 40211 Platelet mean volume (Bld) [Entitic vol] 9.4 fL Normal 7-12 [facility] Comment on above: Performed By: #### Sammy RT, 4091-3, 3094-0, CBCA #### [facility] ([id number]) [address] [place] [address] 68756 Platelets (Bld) [#/Vol] 101 10*3/uL Low 150-450 [facility] Comment on above: Performed By: #### C RT, 3, 3093-0, CBCA #### [facility] ([id number]) [address] [place] [address] 77025 RBC COUNT 2.43 X10E12/L Low 4.10-5.70 [facility] Comment on above: Performed By: #### C RT, 4091-12, 3093-0, CBCA #### [facility] ([id number]) [address] [place] [address] 07199 WBC (Bld) [#/Vol] 2.1 10*3/uL Low 4.0-11.0 [facility] Comment on above: Performed By: #### C RT, 4091-12, 3093-0, CBCA #### [facility] ([id number]) [address] [place] [address] 65699 CREATININEon 10-05-2023 Creatinine [Mass/Vol] 0.42 mg/dL Low 0.70-1.20 [facility] Comment on above: Result Comment: METH OD TRACEABLE TO IDMS STANDARD Performed By: #### C RT, 3, 3093-0, CBCA #### [facility] ([id number]) [address] [place] [address] 36421 eGFR (CKD-EPI) NON-RACE DEPENDENT >90 Normal >59 [facility] Comment on above: Result Comment: Reported eGFR is based on the CKD-EPI 2020 equation that does not use a race coefficient. Performed By: #### C RT, 4091-3, 3094-0, CBCA #### [facility] ([id number]) [address] [place] [address] 35511 Follow-Upon 10-05-2023 Follow-Up Normal [facility] Telephoneon 10-05-2023 Telephone Normal [facility] Vancomycin trough [Mass/Vol] on 10-05-2023 VANCOMYCIN TROUGH 14.7 ug/mL Normal 5.0-20.0 [facility] Comment on above: Performed By: #### C RT, 4092-3, 3094-0, CBCA #### [facility] ([id number]) [address] [place] [address] 65001 36on 09-30-2023 36 No Opat received. Clare crawford faxed to us showing stable results. Normal [facility] BLOOD UREA NITROGENon 2022 Urea nitrogen [Mass/Vol] 12 mg/dL Normal 03-05 [facility] Comment on above: Performed By: #### C RT, CBCA, 409-3, 3094-0 #### [facility] ([id number]) [address] [place] [address] 27808 CBC AND AUTO DIFFon 09-28-20 ABSOLUTE BASOPHIL 0.0 X10E9/L Normal 0.0-0.2 [facility] Comment on above: Performed By: #### C RT, CBCA, 4091-3, 3094-0 #### [facility] ([id number]) [address] [place] [address] 49641 ABSOLUTE NEUTROPHIL 4.7 X10E9/L Normal 1.5-6.6 [facility] Comment on above: Performed By: #### C RT, CBCA, 4091-3, 3094-0 #### [facility] ([id number]) [address] [place] [address] 51732 Basophils/100 WBC (Bld) 0.6 % Normal P [facility] Comment on above: Performed By: #### C RT, CBCA, 4092-3, 3094-0 #### [facility] ([id number]) [address] [place] [address] 90157 Eosinophils (Bld) [#/Vol] 0.0 10*3/uL Normal 0.0-0.4 [facility] Comment on above: Performed By: #### C RT, CBCA, 4091-3, 3094-0 #### [facility] ([id number]) [address] [place] [address] 57400 Eosinophils/100 WBC (Bld) 0.6 % Normal [facility] Comment on above: Performed By: #### C RT, CBCA, 4091-, 3094-0 #### [facility] ([id number]) [address] [place] [address] 44063 Erythrocyte distribution width (RBC) [Ratio] 18.5 % High 11.5-15.0 [facility] Comment on above: Performed By: #### C RT, CBCA, 4091-, 3094-0 #### [facility] ([id number]) [address] [place] [address] 30386 Hematocrit (Bld) [Volume fraction] 23.7 % Low 39-49 [facility] Comment on above: Performed By: #### C RT, CBCA, 4091-3, 3094-0 #### [facility] ([id number]) [address] [place] [address] 60535 Hemoglobin (Bld) [Mass/Vol] 7.8 g/dL Low 13.0-17.0 [facility] Comment on above: Performed By: #### C RT, CBCA, 4091-3, 3094-0 #### [facility] ([id number]) [address] [place] [address] 48071 Lymphocytes (Bld) [#/Vol] 0.5 10*3/uL Low 1.0-3.5 [facility] Comment on above: Performed By: #### C RT, CBCA, 4091-3, 3094-0 #### [facility] ([id number]) [address] [place] [address] 46715 Lymphocytes/100 WBC (Bld) 8.5 % Normal [facility] Comment on above: Performed By: #### C RT, CBCA, 4091-3, 3094-0 #### [facility] ([id number]) [address] [place] [address] [place] [address] MCH (RBC) [Entitic mass] 27.9 pg Normal 27-34 [facility] Comment on above: Performed By: #### C RT, CBCA, 4091-3, 3094-0 #### [facility] ([id number]) [address] [place] [address] 20817 MCHC (RBC) [Mass/Vol] 32.9 g/dL Normal 32-36 [facility] Comment on above: Performed By: #### C RT, CBCA, 4091-12, 3094-0 #### [facility] ([id number]) [address] [place] [address] 93056 MCV (RBC) [Entitic vol] 85 fL Normal 80-100 [facility] Comment on above: Performed By: #### C RT, CBCA, 4091-12, 3094-0 #### [facility] ([id number]) [address] [place] [address] 97129 Monocytes (Bld) [#/Vol] 0.5 10*3/uL Normal 0-0.9 [facility] Comment on above: Performed By: #### C RT, CBCA, 4091-3, 3094-0 #### [facility] ([id number]) [address] [place] [address] 26657 Monocytes/100 WBC (Bld) 9.2 % Normal [facility] Comment on above: Performed By: #### C RT, CBCA, 4092-3, 3094-0 #### [facility] ([id number]) [address] [place] [address] 11161 Neutrophils/100 WBC (Bld) 81.1 % Normal [facility] Comment on above: Performed By: #### C RT, CBCA, 4091-3, 3094-0 #### [facility] ([id number]) [address] [place] [address] 43946 Platelet mean volume (Bld) [Entitic vol] 8.8 fL Normal 7-12 [facility] Comment on above: Performed By: #### C RT, CBCA, 4091-3, 3094-0 #### [facility] ([id number]) [address] [place] [address] 52799 Platelets (Bld) [#/Vol] 101 10*3/uL Low 150-450 [facility] Comment on above: Performed By: #### C RT, CBCA, 4091-3, 3094-0 #### [facility] ([id number]) [address] [place] [address] 58806 RBC COUNT 2.80 X10E12/L Low 4.10-5.70 [facility] Comment on above: Performed By: #### C RT, CBCA, 4091-3, 3094-0 #### [facility] ([id number]) [address] [place] [address] 47952 WBC (Bld) [#/Vol] 5.8 10*3/uL Normal 4.0-11.0 [facility] Comment on above: Performed By: #### C RT, CBCA, 4092-3, 3094-0 #### [facility] ([id number]) [address] [place] [address] 85919 CREATININEon 09-28-2023 Creatinine [Mass/Vol] 0.46 mg/dL Low 0.70-1.20 [facility] Comment on above: Result Comment: METH OD TRACEABLE TO IDMS STANDARD Performed By: #### C MIGDALIA BAILEY, 4092-3, 3094-0 #### [facility] ([id number]) [address] [place] [address] eGFR (CKD-EPI) NON-RACE DEPENDENT >90 Normal >59 [facility] Comment on above: Result Comment: Reported eGFR is based on the CKD-EPI 2020 equation that does not use a race coefficient. Performed By: #### C , MIGDALIA, 4092-3, 3094-0 #### [facility] ([id number]) [address] [place] [address] Vancomycin trough [Mass/Vol] on 09-28-2023 VANCOMYCIN TROUGH 12.3 ug/mL Normal 5.0-20.0 [facility] Comment on above: Performed By: #### C , MIGDALIA, 4092-3, 3094-0 #### [facility] ([id number]) [address] [place] [address] 30on 09-26-2023 30 The patient is Moderately Stable - Low risk of patient condition declining or worsening The patient's goals for the shift include Comfort The clinical goals for the shift include VSS Normal [facility] 30 Normal [facility] ANTI-XA (HEPARIN LEVEL)on HEPARIN UNFRACTIONATED (U/ML) IN PPP BY CHROMOGENIC METHOD 0.18 IU/mL Low 0.3-0.7 [facility] Comment on above: Result Comment: [place] roxaban and Apixaban will interfere with the anti Xa assay used to monitor UFH and LMWH. Performed By: #### L [id number] ####[facility] ([facility]AK[facility])[address] [place] [address] BASIC METABOLIC PANELon 09-09 Anion gap [Moles/Vol] 8 mmol/L Normal 7-20 [facility] Comment on above: Performed By: #### L [id number] ####[facility] ([facility])[address] [place] [address] Calcium [Mass/Vol] 8.5 mg/dL Low 8.6-10.3 [facility] Comment on above: Performed By: #### L [id number] ####[facility] [place] [address] Chloride [Moles/Vol] 105 mmol/L Normal 98-107 [facility] Comment on above: Performed By: #### L AB15 ####[facility] [place] [address] CO2 [Moles/Vol] 26 mmol/L Normal 21-31 [facility] Comment on above: Performed By: #### L [id number] ####[facility] ([facility] [place] [address] Creatinine [Mass/Vol] 0.40 mg/dL Low 0.70-1.30 [facility] Comment on above: Performed By: #### L [id number] ####[facility])[address] [place] [address] GLOMERULAR FILTRATION RATE ML/MIN/1.73 SQ M.PREDICTED 113.1 mL/min/1.73m*2 Normal >60.0 [facility] Comment on above: Result Comment: [facility]???s estimated glomerular filtration rate (eGFR) will [...] of individuals. Performed By: #### L [id number] ####[facility] [place] [address] Glucose [Mass/Vol] 92 mg/dL Normal 70-100 [facility] Comment on above: Performed By: #### L [id number] ####[facility] ([facility])[address] [place] [address] Potassium [Moles/Vol] 3.8 mmol/L Normal 3.5-5.1 [facility] Comment on above: Performed By: #### L [id number] ####[facility] ([facility])[address] [place] [address] Sodium [Moles/Vol] 135 mmol/L Low 136-145 [facility] Comment on above: Performed By: #### L [id number] ####[facility] ([facility])[address] [place] [address] Urea nitrogen [Mass/Vol] 14 mg/dL Normal 7-25 [facility] Comment on above: Performed By: #### L [id number] ####[facility] ([facility])[address] [place] [address] UREA NITROGEN/CREATININE (MASS RATIO) IN SER/PLAS 35.0 Normal [facility] Comment on above: Performed By: #### L [id number] ####[facility] ([facility])[address] [place] [address] CBC WITH AUTO DIFFERENTIALon 09-26-2023 Erythrocyte distribution width (RBC) [Ratio] 18.0 % High 11.5-15.0 [facility] Comment on above: Performed By: #### L [id number] ####[facility] ([facility])[address] [place] [address] ERYTHROCYTE MEAN CORPUSCULAR HEMOGLOBIN CONCENTRATION (G/DL) BY AUTOMATED 32.0 g/dL Normal 32.0-35.0 [facility] Comment on above: Performed By: #### L [id number] ####[facility] ([facility])[address] [place] [address] Hematocrit (Bld) [Volume fraction] 22.8 % Low 39.0-55.0 [facility] Comment on above: Performed By: #### L [id number] ####[facility] ([facility])[address] [place] [address] Hemoglobin (Bld) [Mass/Vol] 7.3 g/dL Low 13.0-17.0 [facility] Comment on above: Performed By: #### L [id number] ####[facility] [place] [address] IMMATURE PLATELET FRACTION % 3.7 % Normal 0.8-6.3 [facility] Comment on above: Performed By: #### L [id number] ####[facility] ([facility])[address] [place], [place] [address] MCH (RBC) [Entitic mass] 27.9 pg Normal 27.0-33.0 [facility] Comment on above: Performed By: #### L [id number] ####[facility] ([facility])[address] [place], [place] [address] MCV (RBC) [Entitic vol] 87.0 fL Normal 82.0-98.0 [facility] Comment on above: Performed By: #### L [id number] ####[facility] ([facility])[address] [place] [address] NRBC (PER 100 WBCS) BY AUTOMATED COUNT 0.0 % Normal 0 [facility] Comment on above: Performed By: #### L [id number] ####[facility] ([facility] [place], [place] [address] PLATELETS (10*3/UL) IN BLOOD AUTOMATED COUNT 75 10*3/uL Low 150-400 [facility] Comment on above: Result Comment: SHAR BELLE PV = 73 @ 09/25/23 Performed By: #### L [id number] ####[facility] ([facility])[address] [place] [address] RBC (Bld) [#/Vol] 2.62 10*6/uL Low 4.20-5.70 [facility] Comment on above: Performed By: #### L [id number] ####[facility] ([facility] [place] [address] WBC (Bld) [#/Vol] 2.12 10*3/uL Low 4.00-10.60 [facility] Comment on above: Performed By: #### L [id number] ####[facility] ([facility])[address] [place] [address] MAGNESIUMon 09-26-2023 Magnesium [Mass/Vol] 1.6 mg/dL Low 1.9-2.7 [facility] Comment on above: Performed By: #### L [id number] ####[facility] ([facility])[address] [place] [address] MANUAL DIFFERENTIALon 2022 BASOPHILS (10*3/UL) IN BLOOD BY CALCULATION 0.01 10*3/uL Normal 0.00-0.20 [facility] Comment on above: Performed By: #### L [id number] ####[facility] ([facility])[address] [place] [address] BASOPHILS/100 LEUKOCYTES IN BLOOD BY AUTOMATED COUNT 0.5 % Normal 0.0-1.0 [facility] Comment on above: Performed By: #### L [id number] ####[facility] [place] [address] EOSINOPHILS (10*3/UL) IN BLOOD BY CALCULATION 0.02 10*3/uL Normal 0.00-0.50 [facility] Comment on above: Performed By: #### L [id number] ####[facility] ([facility] [place] [address] EOSINOPHILS/100 LEUKOCYTES IN BLOOD BY AUTOMATED COUNT 0.9 % Normal 0.0-6.0 [facility] Comment on above: Performed By: #### L [id number] ####[facility] [place] [address] IMMATURE GRANULOCYTES (10*3/UL) IN BLOOD BY CALCULATION 0.01 10*3/uL Normal 0.00-0.20 [facility] Comment on above: Performed By: #### L [id number] ####[facility] ([facility])[address] [place] [address] IMMATURE GRANULOCYTES/100 LEUKOCYTES IN BLOOD BY AUTOMATED COUNT 0.5 % Normal 0.0-1.0 [facility] Comment on above: Performed By: #### L [id number] ####[facility] ([facility])[address] [place] [address] LYMPHOCYTES (10*3/UL) IN BLOOD BY CALCULATION 0.36 10*3/uL Low 1.20-4.00 [facility] Comment on above: Performed By: #### L [id number] ####[facility] ([facility])[address] [place] [address] LYMPHOCYTES/100 LEUKOCYTES IN BLOOD BY AUTOMATED COUNT 17.0 % Low 20.0-45.0 [facility] Comment on above: Performed By: #### L [id number] ####[facility] ([facility])[address] [place] [address] MONOCYTES (10*3/UL) IN BLOOD BY CALCUATION 0.24 10*3/uL Normal 0.10-1.00 [facility] Comment on above: Performed By: #### L [id number] ####[facility] ([facility])[address] [place] [address] MONOCYTES/100 LEUKOCYTES IN BLOOD BY AUTOMATED COUNT 11.3 % Normal 5.0-12.0 [facility] Comment on above: Performed By: #### L [id number] ####[facility] ([facility])[address] [place] [address] NEUTROPHILS (10*3/UL) IN BLOOD BY CALCULATION 1.5 10*3/uL Low 1.6-7.6 [facility] Comment on above: Performed By: #### L [id number] ####[facility])[address] [place] [address] NEUTROPHILS/100 LEUKOCYTES IN BLOOD BY AUTOMATED COUNT 69.8 % Normal 40.0-72.0 [facility] Comment on above: Performed By: #### L [id number] ####[facility] [place] [address] NURSNOTEon 09-26-2023 NURSNOTE Normal [facility] NURSNOTE Normal [facility] PHOSPHORUSon 09-26-2023 Magnesium [Mass/Vol] 3.2 mg/dL Normal 2.5-5.0 [facility] Comment on above: Performed By: #### L [id number] ####[facility] [place] [address] POCT GLUCOSE METER UNSOLICIT ED RESULTSon 09-26-2023 Glucose [Mass/Vol] 117 mg/dL High 70-105 [facility] Comment on above: Order Comment: Waive d Testing in the ED is performed under the ED CLIA certificate #[id number]. Result Comment: [email or web address] Performed By: #### L [id number] ####[facility] [place] [address] 30on 09-25-2023 30 Normal [facility] ANTI-XA (HEPARIN LEVEL)on HEPARIN UNFRACTIONATED (U/ML) IN PPP BY CHROMOGENIC METHOD 0.17 IU/mL Low 0.3-0.7 [facility] Comment on above: Result Comment: [place] roxaban and Apixaban will interfere with the anti Xa assay used to monitor UFH and LMWH. Performed By: #### L [id number] ####[facility] [address] HEPARIN UNFRACTIONATED (U/ML) IN PPP BY CHROMOGENIC METHOD 0.19 IU/mL Low 0.3-0.7 [facility] Comment on above: Result Comment: [place] roxaban and Apixaban will interfere with the anti Xa assay used to monitor UFH and LMWH. Performed By: #### L [id number] ####[facility] [place] [address] HEPARIN UNFRACTIONATED (U/ML) IN PPP BY CHROMOGENIC METHOD 0.15 IU/mL Invalid Interpretation Code 0.3-0.7 [facility] Comment on above: Result Comment: [place] roxaban and Apixaban will interfere with the anti Xa assay used to monitor UFH and LMWH. Performed By: #### L [id number] ####[facility])[address] [place] [address] APTTon 09-25-2023 ACTIVATED PARTIAL THROMBOPLASTIN TIME IN PPP BY COAGULATION ASSAY 71.9 Seconds High 25.0-35.0 [facility] Comment on above: Result Comment: Clin ical significance of the APTT is questionable in the presence of heparin. Performed By: #### L [id number] ####[facility] [facility] [place] [address] BASIC METABOLIC PANELon 09-09 Anion gap [Moles/Vol] 8 mmol/L Normal 7-20 [facility] Comment on above: Performed By: #### L [id number] ####[facility] ([facility])[address] [place] [address] Calcium [Mass/Vol] 8.4 mg/dL Low 8.6-10.3 [facility] Comment on above: Performed By: #### L [id number] ####[facility])[address] [place] [address] Chloride [Moles/Vol] 105 mmol/L Normal 98-107 [facility] Comment on above: Performed By: #### L [id number] ####[facility] [place] [address] CO2 [Moles/Vol] 25 mmol/L Normal 21-31 [facility] Comment on above: Performed By: #### L [id number] ####[facility] [place] [address] Creatinine [Mass/Vol] 0.31 mg/dL Low 0.70-1.30 [facility] Comment on above: Performed By: #### L [id number] ####[facility] ([facility])[address] [place] [address] GLOMERULAR FILTRATION RATE ML/MIN/1.73 SQ M.PREDICTED 122.1 mL/min/1.73m*2 Normal >60.0 [facility] Comment on above: Result Comment: [facility]???s estimated glomerular filtration rate (eGFR) will [...] of individuals. Performed By: #### L [id number] ####[facility] ([facility])[address] [place] [address] Glucose [Mass/Vol] 107 mg/dL High 70-100 [facility] Comment on above: Performed By: #### L [id number] ####[facility])[address] [place] [address] Potassium [Moles/Vol] 3.7 mmol/L Normal 3.5-5.1 [facility] Comment on above: Performed By: #### L [id number] ####[facility])[address] [place] [address] Sodium [Moles/Vol] 134 mmol/L Low 136-145 [facility] Comment on above: Performed By: #### L [id number] ####[facility] [place] [address] Urea nitrogen [Mass/Vol] 13 mg/dL Normal 7-25 [facility] Comment on above: Performed By: #### L [id number] ####[facility] [place] [address] UREA NITROGEN/CREATININE (MASS RATIO) IN SER/PLAS 41.9 Normal [facility] Comment on above: Performed By: #### L [id number] ####[facility] ([facility])[address] [place] [address] CBC WITH AUTO DIFFERENTIALon 09-25-2023 Erythrocyte distribution width (RBC) [Ratio] 17.7 % High 11.5-15.0 [facility] Comment on above: Performed By: #### L [id number] ####[facility] ([facility])[address] [place] [address] ERYTHROCYTE MEAN CORPUSCULAR HEMOGLOBIN CONCENTRATION (G/DL) BY AUTOMATED 31.3 g/dL Low 32.0-35.0 [facility] Comment on above: Performed By: #### L [id number] ####[facility] ([facility])[address] [place] [address] Hematocrit (Bld) [Volume fraction] 24.0 % Low 39.0-55.0 [facility] Comment on above: Performed By: #### L [id number] ####[facility] ([facility])[address] [place] [address] Hemoglobin (Bld) [Mass/Vol] 7.5 g/dL Low 13.0-17.0 [facility] Comment on above: Performed By: #### L [id number] ####[facility] ([facility])[address] [place] [address] IMMATURE PLATELET FRACTION % 2.7 % Normal 0.8-6.3 [facility] Comment on above: Performed By: #### L [id number] ####[facility] ([facility])[address] [place] [address] MCH (RBC) [Entitic mass] 27.0 pg Normal 27.0-33.0 [facility] Comment on above: Performed By: #### L [id number] ####[facility] [place] [address] MCV (RBC) [Entitic vol] 86.3 fL Normal 82.0-98.0 [facility] Comment on above: Performed By: #### L [id number] ####[facility])[address] [place] [address] NRBC (PER 100 WBCS) BY AUTOMATED COUNT 0.0 % Normal 0 [facility] Comment on above: Performed By: #### L [id number] ####[facility] ([facility])[address] [place] [address] PLATELETS (10*3/UL) IN BLOOD AUTOMATED COUNT 73 10*3/uL Low 150-400 [facility] Comment on above: Result Comment: Last plt 73 1d Performed By: #### L [id number] ####[facility] ([facility])[address] [place] [address] RBC (Bld) [#/Vol] 2.78 10*6/uL Low 4.20-5.70 [facility] Comment on above: Performed By: #### L [id number] ####[facility])[address] [place] [address] WBC (Bld) [#/Vol] 2.11 10*3/uL Low 4.00-10.60 [facility] Comment on above: Performed By: #### L [id number] ####[facility] ([facility])[address] [place] [address] MAGNESIUMon 09-25-2023 Magnesium [Mass/Vol] 1.6 mg/dL Low 1.9-2.7 [facility] Comment on above: Performed By: #### L [id number] ####[facility] ([facility])[address] [place] [address] MANUAL DIFFERENTIALon 2022 BASOPHILS (10*3/UL) IN BLOOD BY CALCULATION 0.01 10*3/uL Normal 0.00-0.20 [facility] Comment on above: Performed By: #### L [id number] ####[facility] ([facility])[address] [place] [address] BASOPHILS/100 LEUKOCYTES IN BLOOD BY AUTOMATED COUNT 0.5 % Normal 0.0-1.0 [facility] Comment on above: Performed By: #### L [id number] ####[facility] ([facility])[address] [place] [address] EOSINOPHILS (10*3/UL) IN BLOOD BY CALCULATION 0.04 10*3/uL Normal 0.00-0.50 [facility] Comment on above: Performed By: #### L [id number] ####[facility])[address] [place] [address] EOSINOPHILS/100 LEUKOCYTES IN BLOOD BY AUTOMATED COUNT 1.9 % Normal 0.0-6.0 [facility] Comment on above: Performed By: #### L [id number] ####[facility] ([facility])[address] [place] [address] IMMATURE GRANULOCYTES (10*3/UL) IN BLOOD BY CALCULATION 0.01 10*3/uL Normal 0.00-0.20 [facility] Comment on above: Performed By: #### L [id number] ####[facility] ([facility])[address] [place] [address] IMMATURE GRANULOCYTES/100 LEUKOCYTES IN BLOOD BY AUTOMATED COUNT 0.5 % Normal 0.0-1.0 [facility] Comment on above: Performed By: #### L [id number] ####[facility] ([facility])[address] [place] [address] LYMPHOCYTES (10*3/UL) IN BLOOD BY CALCULATION 0.37 10*3/uL Low 1.20-4.00 [facility] Comment on above: Performed By: #### L [id number] ####[facility])[address] [place] [address] LYMPHOCYTES/100 LEUKOCYTES IN BLOOD BY AUTOMATED COUNT 17.5 % Low 20.0-45.0 [facility] Comment on above: Performed By: #### L [id number] ####[facility])[address] [place] [address] MONOCYTES (10*3/UL) IN BLOOD BY CALCUATION 0.22 10*3/uL Normal 0.10-1.00 [facility] Comment on above: Performed By: #### L [id number] ####[facility] [facility] [address] MONOCYTES/100 LEUKOCYTES IN BLOOD BY AUTOMATED COUNT 10.4 % Normal 5.0-12.0 [facility] Comment on above: Performed By: #### L [id number] ####[facility] [facility] [address] NEUTROPHILS (10*3/UL) IN BLOOD BY CALCULATION 1.5 10*3/uL Low 1.6-7.6 [facility] Comment on above: Performed By: #### L [id number] ####[facility] [facility] [place] [address] NEUTROPHILS/100 LEUKOCYTES IN BLOOD BY AUTOMATED COUNT 69.2 % Normal 40.0-72.0 [facility] Comment on above: Performed By: #### L [id number] ####[facility] [facility] [address] NURSNOTEon 09-25-2023 NURSNOTE Pt would not let francis lee change his wound vac, stated that it would be changed tomorrow when he is discharged. He did however let us bathe him, change linens and change his picc line dressing today. Paulina Kay RN Normal [facility] PHOSPHORUSon 09-25-2023 Magnesium [Mass/Vol] 2.7 mg/dL Normal 2.5-5.0 [facility] Comment on above: Performed By: #### L [id number] ####[facility])[address] [place] [address] POCT GLUCOSE METER UNSOLICIT ED RESULTSon 09-25-2023 Glucose [Mass/Vol] 97 mg/dL Normal 70-105 [facility] Comment on above: Order Comment: Waive d Testing in the ED is performed under the ED CLIA certificate #[id number]. Result Comment: [email or web address] Performed By: #### L [id number] ####[facility] ([facility])[address] [place] [address] Glucose [Mass/Vol] 188 mg/dL High 70-105 [facility] Comment on above: Order Comment: Waive d Testing in the ED is performed under the ED CLIA certificate #[id number]. Result Comment: [email or web address] Performed By: #### L [id number] ####[facility] [facility] [place] [address] Glucose [Mass/Vol] 125 mg/dL High 70-105 [facility] Comment on above: Order Comment: Waive d Testing in the ED is performed under the ED CLIA certificate #[id number]. Result Comment: [email or web address] Performed By: #### L [id number] ####[facility] [place] [address] Glucose [Mass/Vol] 108 mg/dL High 70-105 [facility] Comment on above: Order Comment: Waive d Testing in the ED is performed under the ED CLIA certificate #[id number]. Result Comment: [email or web address] Performed By: #### L [id number] ####[facility])[address] [place] [address] 30on 09-24-2023 30 Normal [facility] 30 Normal [facility] ANTI-XA (HEPARIN LEVEL)on HEPARIN UNFRACTIONATED (U/ML) IN PPP BY CHROMOGENIC METHOD <0.10 Invalid Interpretation Code 0.3-0.7 [facility] Comment on above: Result Comment: [place] roxaban and Apixaban will interfere with the anti Xa assay used to monitor UFH and LMWH. Performed By: #### L [id number] ####[facility] [place] [address] BASIC METABOLIC PANELon 09-09 Anion gap [Moles/Vol] 8 mmol/L Normal 7-20 [facility] Comment on above: Performed By: #### L [id number] ####[facility])[address] [place] [address] Calcium [Mass/Vol] 8.4 mg/dL Low 8.6-10.3 [facility] Comment on above: Performed By: #### L [id number] ####[facility] [place] [address] Chloride [Moles/Vol] 103 mmol/L Normal 98-107 [facility] Comment on above: Performed By: #### L [id number] ####[facility] ([facility])[address] [place] [address] CO2 [Moles/Vol] 28 mmol/L Normal 21-31 [facility] Comment on above: Performed By: #### L [id number] ####[facility] ([facility])[address] [place] [address] Creatinine [Mass/Vol] 0.36 mg/dL Low 0.70-1.30 [facility] Comment on above: Performed By: #### L [id number] ####[facility])[address] [place] [address] GLOMERULAR FILTRATION RATE ML/MIN/1.73 SQ M.PREDICTED 116.7 mL/min/1.73m*2 Normal >60.0 [facility] Comment on above: Result Comment: [facility]???s estimated glomerular filtration rate (eGFR) will [...] of individuals. Performed By: #### L [id number] ####[facility] ([facility])[address] [place] [address] Glucose [Mass/Vol] 100 mg/dL Normal 70-100 [facility] Comment on above: Performed By: #### L [id number] ####[facility] [place] [address] Potassium [Moles/Vol] 3.5 mmol/L Normal 3.5-5.1 [facility] Comment on above: Performed By: #### L [id number] ####[facility] [place] [address] Sodium [Moles/Vol] 135 mmol/L Low 136-145 [facility] Comment on above: Performed By: #### L [id number] ####[facility] [place] [address] Urea nitrogen [Mass/Vol] 13 mg/dL Normal 7-25 [facility] Comment on above: Performed By: #### L [id number] ####[facility] [place] [address] UREA NITROGEN/CREATININE (MASS RATIO) IN SER/PLAS 36.1 Normal [facility] Comment on above: Performed By: #### L [id number] ####[facility] [place] [address] CBC WITH AUTO DIFFERENTIALon 09-24-2023 Erythrocyte distribution width (RBC) [Ratio] 17.8 % High 11.5-15.0 [facility] Comment on above: Performed By: #### L [id number] ####[facility] [place] [address] ERYTHROCYTE MEAN CORPUSCULAR HEMOGLOBIN CONCENTRATION (G/DL) BY AUTOMATED 32.1 g/dL Normal 32.0-35.0 [facility] Comment on above: Performed By: #### L [id number] ####[facility] [place] [address] Hematocrit (Bld) [Volume fraction] 23.7 % Low 39.0-55.0 [facility] Comment on above: Performed By: #### L [id number] ####[facility] [place] [address] Hemoglobin (Bld) [Mass/Vol] 7.6 g/dL Low 13.0-17.0 [facility] Comment on above: Performed By: #### L [id number] ####[facility] [place] [address] IMMATURE PLATELET FRACTION % 3.1 % Normal 0.8-6.3 [facility] Comment on above: Performed By: #### L [id number] ####[facility] [place] [address] MCH (RBC) [Entitic mass] 27.7 pg Normal 27.0-33.0 [facility] Comment on above: Performed By: #### L [id number] ####[facility] [place] [address] MCV (RBC) [Entitic vol] 86.5 fL Normal 82.0-98.0 [facility] Comment on above: Performed By: #### L [id number] ####[facility] [place] [address] NRBC (PER 100 WBCS) BY AUTOMATED COUNT 0.0 % Normal 0 [facility] Comment on above: Performed By: #### L [id number] ####[facility] [place] [address] PLATELETS (10*3/UL) IN BLOOD AUTOMATED COUNT 73 10*3/uL Low 150-400 [facility] Comment on above: Performed By: #### L [id number] ####[facility] [place] [address] RBC (Bld) [#/Vol] 2.74 10*6/uL Low 4.20-5.70 [facility] Comment on above: Performed By: #### L [id number] ####[facility] [place] [address] WBC (Bld) [#/Vol] 2.37 10*3/uL Low 4.00-10.60 [facility] Comment on above: Performed By: #### L [id number] ####[facility] ([facility])[address] [place] [address] MAGNESIUMon 09-24-2023 Magnesium [Mass/Vol] 1.6 mg/dL Low 1.9-2.7 [facility] Comment on above: Performed By: #### L [id number] ####[facility] ([facility])[address] [place] [address] MANUAL DIFFERENTIALon 2022 BASOPHILS (10*3/UL) IN BLOOD BY CALCULATION 0.01 10*3/uL Normal 0.00-0.20 [facility] Comment on above: Performed By: #### L [id number] ####[facility] ([facility])[address] [place] [address] BASOPHILS/100 LEUKOCYTES IN BLOOD BY AUTOMATED COUNT 0.4 % Normal 0.0-1.0 [facility] Comment on above: Performed By: #### L [id number] ####[facility] ([facility])[address] [place] [address] EOSINOPHILS (10*3/UL) IN BLOOD BY CALCULATION 0.03 10*3/uL Normal 0.00-0.50 [facility] Comment on above: Performed By: #### L [id number] ####[facility])[address] [place] [address] EOSINOPHILS/100 LEUKOCYTES IN BLOOD BY AUTOMATED COUNT 1.3 % Normal 0.0-6.0 [facility] Comment on above: Performed By: #### L [id number] ####[facility] [place] [address] IMMATURE GRANULOCYTES (10*3/UL) IN BLOOD BY CALCULATION 0.01 10*3/uL Normal 0.00-0.20 [facility] Comment on above: Performed By: #### L [id number] ####[facility] [place] [address] IMMATURE GRANULOCYTES/100 LEUKOCYTES IN BLOOD BY AUTOMATED COUNT 0.4 % Normal 0.0-1.0 [facility] Comment on above: Performed By: #### L [id number] ####[facility] [address] LYMPHOCYTES (10*3/UL) IN BLOOD BY CALCULATION 0.37 10*3/uL Low 1.20-4.00 [facility] Comment on above: Performed By: #### L [id number] ####[facility])[address] [place] [address] LYMPHOCYTES/100 LEUKOCYTES IN BLOOD BY AUTOMATED COUNT 15.6 % Low 20.0-45.0 [facility] Comment on above: Performed By: #### L [id number] ####[facility])[address] [address] MONOCYTES (10*3/UL) IN BLOOD BY CALCUATION 0.19 10*3/uL Normal 0.10-1.00 [facility] Comment on above: Performed By: #### L [id number] ####[facility])[address] [address] MONOCYTES/100 LEUKOCYTES IN BLOOD BY AUTOMATED COUNT 8.0 % Normal 5.0-12.0 [facility] Comment on above: Performed By: #### L [id number] ####[facility])[address] [address] NEUTROPHILS (10*3/UL) IN BLOOD BY CALCULATION 1.8 10*3/uL Normal 1.6-7.6 [facility] Comment on above: Performed By: #### L [id number] ####[facility] [place] [address] NEUTROPHILS/100 LEUKOCYTES IN BLOOD BY AUTOMATED COUNT 74.3 % High 40.0-72.0 [facility] Comment on above: Performed By: #### L [id number] ####[facility] [address] PHOSPHORUSon 09-24-2023 Magnesium [Mass/Vol] 3.0 mg/dL Normal 2.5-5.0 [facility] Comment on above: Performed By: #### L [id number] ####[facility] [place] [address] POCT GLUCOSE METER UNSOLICIT ED RESULTSon 09-24-2023 Glucose [Mass/Vol] 188 mg/dL High 70-105 [facility] Comment on above: Order Comment: Waive d Testing in the ED is performed under the ED CLIA certificate #[id number]. Result Comment: [email or web address] Performed By: #### L [id number] ####[facility])[address] [place] [address] Glucose [Mass/Vol] 170 mg/dL High 70-105 [facility] Comment on above: Order Comment: Waive d Testing in the ED is performed under the ED CLIA certificate #[id number]. Result Comment: [email or web address] Performed By: #### L [id number] ####[facility])[address] [place] [address] Glucose [Mass/Vol] 237 mg/dL High 70-105 [facility] Comment on above: Order Comment: Waive d Testing in the ED is performed under the ED CLIA certificate #[id number]. Result Comment: [email or web address] Performed By: #### L [id number] ####[facility] ([facility])[address] [place] [address] Glucose [Mass/Vol] 105 mg/dL Normal 70-105 [facility] Comment on above: Order Comment: Waive d Testing in the ED is performed under the ED CLIA certificate #[id number]. Result Comment: [email or web address] Performed By: #### L [id number] ####[facility])[address] [place] [address] VANCOMYCIN, TROUGHon 023 VANCOMYCIN (UG/ML) IN SER/PLAS - TROUGH 11.7 ug/mL Normal 5.0-20.0 [facility] Comment on above: Performed By: #### L [id number] ####[facility] [place] [address] 30on 09-23-2023 30 Normal [facility] ANTI-XA (HEPARIN LEVEL)on HEPARIN UNFRACTIONATED (U/ML) IN PPP BY CHROMOGENIC METHOD 0.30 IU/mL Normal 0.3-0.7 [facility] Comment on above: Result Comment: [place] roxaban and Apixaban will interfere with the anti Xa assay used to monitor UFH and LMWH. Performed By: #### L [id number] ####[facility] ([facility])[address] [place] [address] HEPARIN UNFRACTIONATED (U/ML) IN PPP BY CHROMOGENIC METHOD 0.38 IU/mL Normal 0.3-0.7 [facility] Comment on above: Result Comment: [place] roxaban and Apixaban will interfere with the anti Xa assay used to monitor UFH and LMWH. Performed By: #### L [id number] ####[facility] [place] [address] HEPARIN UNFRACTIONATED (U/ML) IN PPP BY CHROMOGENIC METHOD 0.35 IU/mL Normal 0.3-0.7 [facility] Comment on above: Result Comment: [place] roxaban and Apixaban will interfere with the anti Xa assay used to monitor UFH and LMWH. Performed By: #### L [id number] ####[facility] ([facility])[address] [place] [address] HEPARIN UNFRACTIONATED (U/ML) IN PPP BY CHROMOGENIC METHOD 0.29 IU/mL Low 0.3-0.7 [facility] Comment on above: Result Comment: [place] roxaban and Apixaban will interfere with the anti Xa assay used to monitor UFH and LMWH. Performed By: #### L [id number] ####[facility] [place] [address] BASIC METABOLIC PANELon 09-09 Anion gap [Moles/Vol] 8 mmol/L Normal 7-20 [facility] Comment on above: Performed By: #### L [id number] ####[facility])[address] [place] [address] Calcium [Mass/Vol] 7.9 mg/dL Low 8.6-10.3 [facility] Comment on above: Performed By: #### L [id number] ####[facility] [place] [address] Chloride [Moles/Vol] 104 mmol/L Normal 98-107 [facility] Comment on above: Performed By: #### L [id number] ####[facility] [place] [address] CO2 [Moles/Vol] 26 mmol/L Normal 21-31 [facility] Comment on above: Performed By: #### L [id number] ####[facility])[address] [place] [address] Creatinine [Mass/Vol] 0.44 mg/dL Low 0.70-1.30 [facility] Comment on above: Performed By: #### L [id number] ####[facility])[address] [place] [address] GLOMERULAR FILTRATION RATE ML/MIN/1.73 SQ M.PREDICTED 109.9 mL/min/1.73m*2 Normal >60.0 [facility] Comment on above: Result Comment: [facility]???s estimated glomerular filtration rate (eGFR) will [...] of individuals. Performed By: #### L [id number] ####[facility] [place] [address] Glucose [Mass/Vol] 110 mg/dL High 70-100 [facility] Comment on above: Performed By: #### L [id number] ####[facility] [place] [address] Potassium [Moles/Vol] 3.7 mmol/L Normal 3.5-5.1 [facility] Comment on above: Performed By: #### L [id number] ####[facility] [place] [address] Sodium [Moles/Vol] 134 mmol/L Low 136-145 [facility] Comment on above: Performed By: #### L [id number] ####[facility] ([facility])[address] [place] [address] Urea nitrogen [Mass/Vol] 16 mg/dL Normal 7-25 [facility] Comment on above: Performed By: #### L [id number] ####[facility] ([facility])[address] [place] [address] UREA NITROGEN/CREATININE (MASS RATIO) IN SER/PLAS 36.4 Normal [facility] Comment on above: Performed By: #### L [id number] ####[facility] ([facility])[address] [place] [address] CBC WITH AUTO DIFFERENTIALon 09-23-2023 Erythrocyte distribution width (RBC) [Ratio] 17.6 % High 11.5-15.0 [facility] Comment on above: Performed By: #### L [id number] ####[facility] ([facility])[address] [place] [address] ERYTHROCYTE MEAN CORPUSCULAR HEMOGLOBIN CONCENTRATION (G/DL) BY AUTOMATED 32.3 g/dL Normal 32.0-35.0 [facility] Comment on above: Performed By: #### L [id number] ####[facility] [place] [address] Hematocrit (Bld) [Volume fraction] 23.5 % Low 39.0-55.0 [facility] Comment on above: Performed By: #### L [id number] ####[facility] ([facility])[address] [place] [address] Hemoglobin (Bld) [Mass/Vol] 7.6 g/dL Low 13.0-17.0 [facility] Comment on above: Result Comment: Resu lts checked pt has wound vac after surgery on 09/22/23 Performed By: #### L [id number] ####[facility] ([facility])[address] [place] [address] IMMATURE PLATELET FRACTION % 2.3 % Normal 0.8-6.3 [facility] Comment on above: Performed By: #### L [id number] ####[facility] ([facility])[address] [place] [address] MCH (RBC) [Entitic mass] 27.7 pg Normal 27.0-33.0 [facility] Comment on above: Performed By: #### L [id number] ####[facility] ([facility])[address] [place] [address] MCV (RBC) [Entitic vol] 85.8 fL Normal 82.0-98.0 [facility] Comment on above: Performed By: #### L [id number] ####[facility] ([facility])[address] [place] [address] NRBC (PER 100 WBCS) BY AUTOMATED COUNT 0.0 % Normal 0 [facility] Comment on above: Performed By: #### L [id number] ####[facility] ([facility])[address] [place] [address] PLATELETS (10*3/UL) IN BLOOD AUTOMATED COUNT 71 10*3/uL Low 150-400 [facility] Comment on above: Result Comment: Last plt 109 1d Performed By: #### L [id number] ####[facility] [place] [address] RBC (Bld) [#/Vol] 2.74 10*6/uL Low 4.20-5.70 [facility] Comment on above: Performed By: #### L [id number] ####[facility] ([facility])[address] [place] [address] WBC (Bld) [#/Vol] 2.37 10*3/uL Low 4.00-10.60 [facility] Comment on above: Performed By: #### L [id number] ####[facility] [place] [address] HEMOGLOBIN AND HEMATOCRIT, B LOODon 09-23-2023 Hematocrit (Bld) [Volume fraction] 26.5 % Low 39.0-55.0 [facility] Comment on above: Performed By: #### L [id number] ####[facility] ([facility])[address] [place] [address] Hemoglobin (Bld) [Mass/Vol] 8.4 g/dL Low 13.0-17.0 [facility] Comment on above: Performed By: #### L [id number] ####[facility] ([facility])[address] [place] [address] Hematocrit (Bld) [Volume fraction] 24.0 % Low 39.0-55.0 [facility] Comment on above: Performed By: #### L [id number] ####[facility] ([facility])[address] [place] [address] Hemoglobin (Bld) [Mass/Vol] 7.7 g/dL Low 13.0-17.0 [facility] Comment on above: Performed By: #### L [id number] ####[facility] ([facility])[address] [place] [address] MAGNESIUMon 09-23-2023 Magnesium [Mass/Vol] 1.6 mg/dL Low 1.9-2.7 [facility] Comment on above: Performed By: #### L [id number] ####[facility] ([facility])[address] [place] [address] MANUAL DIFFERENTIALon 2022 BASOPHILS (10*3/UL) IN BLOOD BY CALCULATION 0.01 10*3/uL Normal 0.00-0.20 [facility] Comment on above: Performed By: #### L [id number] ####[facility] ([facility])[address] [place] [address] BASOPHILS/100 LEUKOCYTES IN BLOOD BY AUTOMATED COUNT 0.4 % Normal 0.0-1.0 [facility] Comment on above: Performed By: #### L [id number] ####[facility] ([facility])[address] [place] [address] EOSINOPHILS (10*3/UL) IN BLOOD BY CALCULATION 0.04 10*3/uL Normal 0.00-0.50 [facility] Comment on above: Performed By: #### L [id number] ####[facility] ([facility])[address] [place] [address] EOSINOPHILS/100 LEUKOCYTES IN BLOOD BY AUTOMATED COUNT 1.7 % Normal 0.0-6.0 [facility] Comment on above: Performed By: #### L [id number] ####[facility] ([facility])[address] [place] [address] IMMATURE GRANULOCYTES (10*3/UL) IN BLOOD BY CALCULATION 0.01 10*3/uL Normal 0.00-0.20 [facility] Comment on above: Performed By: #### L [id number] ####[facility] ([facility])[address] [place] [address] IMMATURE GRANULOCYTES/100 LEUKOCYTES IN BLOOD BY AUTOMATED COUNT 0.4 % Normal 0.0-1.0 [facility] Comment on above: Performed By: #### L [id number] ####[facility] [place] [address] LYMPHOCYTES (10*3/UL) IN BLOOD BY CALCULATION 0.36 10*3/uL Low 1.20-4.00 [facility] Comment on above: Performed By: #### L [id number] ####[facility] ([facility])[address] [place] [address] LYMPHOCYTES/100 LEUKOCYTES IN BLOOD BY AUTOMATED COUNT 15.2 % Low 20.0-45.0 [facility] Comment on above: Performed By: #### L [id number] ####[facility] ([facility])[address] [place] [address] MONOCYTES (10*3/UL) IN BLOOD BY CALCUATION 0.18 10*3/uL Normal 0.10-1.00 [facility] Comment on above: Performed By: #### L [id number] ####[facility] ([facility])[address] [place] [place] [address] MONOCYTES/100 LEUKOCYTES IN BLOOD BY AUTOMATED COUNT 7.6 % Normal 5.0-12.0 [facility] Comment on above: Performed By: #### L [id number] ####[facility] ([facility])[address] [place] [address] NEUTROPHILS (10*3/UL) IN BLOOD BY CALCULATION 1.8 10*3/uL Normal 1.6-7.6 [facility] Comment on above: Performed By: #### L [id number] ####[facility] ([facility])[address] [place] [address] NEUTROPHILS/100 LEUKOCYTES IN BLOOD BY AUTOMATED COUNT 74.7 % High 40.0-72.0 [facility] Comment on above: Performed By: #### L [id number] ####[facility] ([facility])[address] [place] [address] PHOSPHORUSon 09-23-2023 Magnesium [Mass/Vol] 2.4 mg/dL Low 2.5-5.0 [facility] Comment on above: Performed By: #### L [id number] ####[facility] ([facility])[address] [place] [address] POCT GLUCOSE METER UNSOLICIT ED RESULTSon 09-23-2023 Glucose [Mass/Vol] 188 mg/dL High 70-105 [facility] Comment on above: Order Comment: Waive d Testing in the ED is performed under the ED CLIA certificate #[id number]. Result Comment: [email or web address] Performed By: #### L [id number] ####[facility] [place] [address] Glucose [Mass/Vol] 158 mg/dL High 70-105 [facility] Comment on above: Order Comment: Waive d Testing in the ED is performed under the ED CLIA certificate #[id number]. Result Comment: [email or web address] Performed By: #### L [id number] ####[facility] ([facility])[address] [place] [address] Glucose [Mass/Vol] 252 mg/dL High 70-105 [facility] Comment on above: Order Comment: Waive d Testing in the ED is performed under the ED CLIA certificate #[id number]. Result Comment: [email or web address] Performed By: #### L [id number] ####[facility] ([facility])[address] [place] [address] Glucose [Mass/Vol] 120 mg/dL High 70-105 [facility] Comment on above: Order Comment: Waive d Testing in the ED is performed under the ED CLIA certificate #[id number]. Result Comment: [email or web address] Performed By: #### L [id number] ####[facility] ([facility])[address] [place] [address] VANCOMYCIN, PEAKon 3 VANCOMYCIN (UG/ML) IN SER/PLAS - PEAK 23.7 ug/mL Normal 20.0-50.0 [facility] Comment on above: Performed By: #### L [id number] ####[facility] ([facility])[address] [place] [address] 30on 09-22-2023 30 Normal [facility] 30 Normal [facility] 30 Normal [facility] 30 Normal [facility] ANTI-XA (HEPARIN LEVEL)on HEPARIN UNFRACTIONATED (U/ML) IN PPP BY CHROMOGENIC METHOD 0.21 IU/mL Low 0.3-0.7 [facility] Comment on above: Order Comment: Check anti-Xa level every 6 hours while on heparin infusion, or per protocol. Result Comment: [place] roxaban and Apixaban will interfere with the anti Xa assay used to monitor UFH and LMWH. Performed By: #### L [id number] ####[facility] ([facility])[address] [place] [address] HEPARIN UNFRACTIONATED (U/ML) IN PPP BY CHROMOGENIC METHOD 0.25 IU/mL Low 0.3-0.7 [facility] Comment on above: Order Comment: Check anti-Xa level every 6 hours while on heparin infusion, or per protocol. Result Comment: [place] roxaban and Apixaban will interfere with the anti Xa assay used to monitor UFH and LMWH. Performed By: #### L [id number] ####[facility] ([facility])[address] [place] [address] HEPARIN UNFRACTIONATED (U/ML) IN PPP BY CHROMOGENIC METHOD 0.22 IU/mL Low 0.3-0.7 [facility] Comment on above: Result Comment: [place] roxaban and Apixaban will interfere with the anti Xa assay used to monitor UFH and LMWH. Performed By: #### L [id number] ####[facility] ([facility])[address] [place] [address] HEPARIN UNFRACTIONATED (U/ML) IN PPP BY CHROMOGENIC METHOD 0.22 IU/mL Low 0.3-0.7 [facility] Comment on above: Order Comment: Check anti-Xa level every 6 hours while on heparin infusion, or per protocol. Result Comment: [place] roxaban and Apixaban will interfere with the anti Xa assay used to monitor UFH and LMWH. Performed By: #### L [id number] ####[facility] ([facility])[address] [place] [address] HEPARIN UNFRACTIONATED (U/ML) IN PPP BY CHROMOGENIC METHOD 0.18 IU/mL Low 0.3-0.7 [facility] Comment on above: Order Comment: Check anti-Xa level every 6 hours while on heparin infusion, or per protocol. Result Comment: [place] roxaban and Apixaban will interfere with the anti Xa assay used to monitor UFH and LMWH. Performed By: #### L [id number] ####[facility])[address] [place] [address] BASIC METABOLIC PANELon 12- Anion gap [Moles/Vol] 8 mmol/L Normal 7-20 [facility] Comment on above: Performed By: #### L [id number] ####[facility] ([facility])[address] [place] [address] Calcium [Mass/Vol] 8.0 mg/dL Low 8.6-10.3 [facility] Comment on above: Performed By: #### L [id number] ####[facility] ([facility])[address] [place] [address] Chloride [Moles/Vol] 102 mmol/L Normal 98-107 [facility] Comment on above: Performed By: #### L [id number] ####[facility] ([facility])[address] [place] [address] CO2 [Moles/Vol] 26 mmol/L Normal 21-31 [facility] Comment on above: Performed By: #### L [id number] ####[facility] ([facility])[address] [place] [address] Creatinine [Mass/Vol] 0.41 mg/dL Low 0.70-1.30 [facility] Comment on above: Performed By: #### L [id number] ####[facility] ([facility])[address] [place] [address] GLOMERULAR FILTRATION RATE ML/MIN/1.73 SQ M.PREDICTED 112.2 mL/min/1.73m*2 Normal >60.0 [facility] Comment on above: Result Comment: [facility]???s estimated glomerular filtration rate (eGFR) will [...] of individuals. Performed By: #### L [id number] ####[facility] ([facility])[address] [place] [address] Glucose [Mass/Vol] 110 mg/dL High 70-100 [facility] Comment on above: Performed By: #### L [id number] ####[facility] ([facility])[address] [place] [address] Potassium [Moles/Vol] 3.7 mmol/L Normal 3.5-5.1 [facility] Comment on above: Performed By: #### L [id number] ####[facility] ([facility])[address] [place] [address] Sodium [Moles/Vol] 132 mmol/L Low 136-145 [facility] Comment on above: Performed By: #### L [id number] ####[facility] ([facility])[address] [place] [address] Urea nitrogen [Mass/Vol] 16 mg/dL Normal 7-25 [facility] Comment on above: Performed By: #### L [id number] ####[facility] ([facility])[address] [place] [address] UREA NITROGEN/CREATININE (MASS RATIO) IN SER/PLAS 39.0 Normal [facility] Comment on above: Performed By: #### L [id number] ####[facility] ([facility])[address] [place] [address] CBC WITH AUTO DIFFERENTIALon 09-22-2023 Basophils (Bld) [#/Vol] 0.00 10*3/uL Normal 0.00-0.20 [facility] Comment on above: Performed By: #### L [id number] ####[facility] ([facility])[address] [place] [address] Basophils/100 WBC (Bld) 0.0 % Normal 0.0-1.0 [facility] Comment on above: Performed By: #### L [id number] ####[facility] ([facility])[address] [place] [address] Eosinophils (Bld) [#/Vol] 0.03 10*3/uL Normal 0.00-0.50 [facility] Comment on above: Performed By: #### L [id number] ####[facility] ([facility])[address] [place] [address] Eosinophils/100 WBC (Bld) 0.7 % Normal 0.0-6.0 [facility] Comment on above: Performed By: #### L [id number] ####[facility] ([facility])[address] [place] [address] Erythrocyte distribution width (RBC) [Ratio] 17.6 % High 11.5-15.0 [facility] Comment on above: Performed By: #### L [id number] ####[facility] ([facility])[address] [place] [address] ERYTHROCYTE MEAN CORPUSCULAR HEMOGLOBIN CONCENTRATION (G/DL) BY AUTOMATED 32.2 g/dL Normal 32.0-35.0 [facility] Comment on above: Performed By: #### L [id number] ####[facility] [place] [address] Hematocrit (Bld) [Volume fraction] 27.6 % Low 39.0-55.0 [facility] Comment on above: Performed By: #### L [id number] ####[facility] ([facility])[address] [place] [address] Hemoglobin (Bld) [Mass/Vol] 8.9 g/dL Low 13.0-17.0 [facility] Comment on above: Performed By: #### L [id number] ####[facility] ([facility])[address] [place] [address] Immature granulocytes (Bld) [#/Vol] 0.02 10*3/uL Normal 0.00-0.20 [facility] Comment on above: Performed By: #### L [id number] ####[facility] ([facility])[address] [place] [address] Immature granulocytes/100 WBC (Bld) 0.5 % Normal 0.0-1.0 [facility] Comment on above: Performed By: #### L [id number] ####[facility] ([facility])[address] [place] [address] Lymphocytes (Bld) [#/Vol] 0.45 10*3/uL Low 1.20-4.00 [facility] Comment on above: Performed By: #### L [id number] ####[facility] ([facility])[address] [place] [address] Lymphocytes/100 WBC (Bld) 10.6 % Low 20.0-45.0 [facility] Comment on above: Performed By: #### L [id number] ####[facility] ([facility])[address] [place] [address] MCH (RBC) [Entitic mass] 27.5 pg Normal 27.0-33.0 [facility] Comment on above: Performed By: #### L [id number] ####[facility] ([facility])[address] [place] [address] MCV (RBC) [Entitic vol] 85.2 fL Normal 82.0-98.0 [facility] Comment on above: Performed By: #### L [id number] ####[facility] ([facility])[address] [place] [address] Monocytes (Bld) [#/Vol] 0.45 10*3/uL Normal 0.10-1.00 [facility] Comment on above: Performed By: #### L [id number] ####[facility])[address] [place] [address] Monocytes/100 WBC (Bld) 10.6 % Normal 5.0-12.0 [facility] Comment on above: Performed By: #### L [id number] ####[facility] [place] [address] Neutrophils (Bld) [#/Vol] 3.28 10*3/uL Normal 1.60-7.60 [facility] Comment on above: Performed By: #### L [id number] ####[facility] [place] [address] Neutrophils/100 WBC (Bld) 77.6 % High 40.0-72.0 [facility] Comment on above: Performed By: #### L [id number] ####[facility] ([facility])[address] [place], [place] [address] NRBC (PER 100 WBCS) BY AUTOMATED COUNT 0.0 % Normal 0 [facility] Comment on above: Performed By: #### L [id number] ####[facility] ([facility])[address] [place], [place] [address] PLATELETS (10*3/UL) IN BLOOD AUTOMATED COUNT 109 10*3/uL Low 150-400 [facility] Comment on above: Performed By: #### L [id number] ####[facility] ([facility])[address] [place], [place] [address] RBC (Bld) [#/Vol] 3.24 10*6/uL Low 4.20-5.70 [facility] Comment on above: Performed By: #### L [id number] ####[facility])[address] [place], [place] [address] WBC (Bld) [#/Vol] 4.23 10*3/uL Normal 4.00-10.60 [facility] Comment on above: Performed By: #### L [id number] ####[facility] [place], [place] [address] HEMOGLOBIN AND HEMATOCRIT, B ODon 09-22-2023 Hematocrit (Bld) [Volume fraction] 30.1 % Low 39.0-55.0 [facility] Comment on above: Performed By: #### L [id number] ####[facility] [place] [address] Hemoglobin (Bld) [Mass/Vol] 9.8 g/dL Low 13.0-17.0 [facility] Comment on above: Performed By: #### L [id number] ####[facility] ([facility])[address] [place] [address] MAGNESIUMon 09-22-2023 Magnesium [Mass/Vol] 1.7 mg/dL Low 1.9-2.7 [facility] Comment on above: Performed By: #### L [id number] ####[facility])[address] [place] [address] PHOSPHORUSon 09-22-2023 Magnesium [Mass/Vol] 2.0 mg/dL Low 2.5-5.0 [facility] Comment on above: Performed By: #### L [id number] ####[facility])[address] [place] [address] POCT GLUCOSE METER UNSOLICIT ED RESULTSon 09-22-2023 Glucose [Mass/Vol] 102 mg/dL Normal 70-105 [facility] Comment on above: Order Comment: Waive d Testing in the ED is performed under the ED CLIA certificate #[id number]. Result Comment: [email or web address] Performed By: #### L [id number] ####[facility] ([facility])[address] [place] [address] Glucose [Mass/Vol] 212 mg/dL High 70-105 [facility] Comment on above: Order Comment: Waive d Testing in the ED is performed under the ED CLIA certificate #[id number]. Result Comment: [email or web address] Performed By: #### L [id number] ####[facility] ([facility])[address] [place] [address] Glucose [Mass/Vol] 177 mg/dL High 70-105 [facility] Comment on above: Order Comment: Waive d Testing in the ED is performed under the ED CLIA certificate #[id number]. Result Comment: [email or web address] Performed By: #### L [id number] ####[facility] ([facility])[address] [place] [address] VANCOMYCIN, TROUGHon 023 VANCOMYCIN (UG/ML) IN SER/PLAS - TROUGH 6.1 ug/mL Normal 5.0-20.0 [facility] Comment on above: Order Comment: Les meléndez collect the trough at least one hour before the 0800 dose due Performed By: #### L [id number] ####[facility] [place] [address] 30on 09-21-2023 30 Normal [facility] 30 Normal [facility] ANTI-XA (HEPARIN LEVEL)on HEPARIN UNFRACTIONATED (U/ML) IN PPP BY CHROMOGENIC METHOD 0.14 IU/mL Invalid Interpretation Code 0.3-0.7 [facility] Comment on above: Order Comment: Check anti-Xa level every 6 hours while on heparin infusion, or per protocol. Result Comment: [place] roxaban and Apixaban will interfere with the anti Xa assay used to monitor UFH and LMWH. Performed By: #### L [id number] ####[facility] ([facility])[address] [place] [address] HEPARIN UNFRACTIONATED (U/ML) IN PPP BY CHROMOGENIC METHOD <0.10 Invalid Interpretation Code 0.3-0.7 [facility] Comment on above: Result Comment: [place] roxaban and Apixaban will interfere with the anti Xa assay used to monitor UFH and LMWH. Performed By: #### L [id number] ####[facility] ([facility])[address] [place] [address] APTTon 09-21-2023 ACTIVATED PARTIAL THROMBOPLASTIN TIME IN PPP BY COAGULATION ASSAY 35.8 Seconds High 25.0-35.0 [facility] Comment on above: Order Comment: Basel ine aPTT before initiating heparin infusion. Result Comment: Clin ical significance of the APTT is questionable in the presence of heparin. Performed By: #### L [id number] ####[facility])[address] [place] [address] BASIC METABOLIC PANELon 12- Anion gap [Moles/Vol] 12 mmol/L Normal 7-20 [facility] Comment on above: Performed By: #### L [id number] ####[facility] ([facility])[address] [place] [address] Calcium [Mass/Vol] 7.9 mg/dL Low 8.6-10.3 [facility] Comment on above: Performed By: #### L [id number] ####[facility] ([facility])[address] [place] [address] Chloride [Moles/Vol] 100 mmol/L Normal 98-107 [facility] Comment on above: Performed By: #### L [id number] ####[facility] ([facility])[address] [place] [address] CO2 [Moles/Vol] 23 mmol/L Normal 21-31 [facility] Comment on above: Performed By: #### L [id number] ####[facility] ([facility])[address] [place] [address] Creatinine [Mass/Vol] 0.61 mg/dL Low 0.70-1.30 [facility] Comment on above: Performed By: #### L [id number] ####[facility] [place] [address] GLOMERULAR FILTRATION RATE ML/MIN/1.73 SQ M.PREDICTED 99.5 mL/min/1.73m*2 Normal >60.0 [facility] Comment on above: Result Comment: [facility]???s estimated glomerular filtration rate (eGFR) will [...] of individuals. Performed By: #### L [id number] ####[facility] ([facility])[address] [place] [address] Glucose [Mass/Vol] 246 mg/dL High 70-100 [facility] Comment on above: Performed By: #### L [id number] ####[facility])[address] [place] [address] Potassium [Moles/Vol] 3.5 mmol/L Normal 3.5-5.1 [facility] Comment on above: Performed By: #### L [id number] ####[facility])[address] [place] [address] Sodium [Moles/Vol] 131 mmol/L Low 136-145 [facility] Comment on above: Performed By: #### L [id number] ####[facility])[address] [place] [address] Urea nitrogen [Mass/Vol] 15 mg/dL Normal 7-25 [facility] Comment on above: Performed By: #### L [id number] ####[facility])[address] [place] [address] UREA NITROGEN/CREATININE (MASS RATIO) IN SER/PLAS 24.6 Normal [facility] Comment on above: Performed By: #### L [id number] ####[facility])[address] [place] [address] Anion gap [Moles/Vol] 8 mmol/L Normal 7-20 [facility] Comment on above: Performed By: #### L [id number] ####[facility] [place] [address] Calcium [Mass/Vol] 8.5 mg/dL Low 8.6-10.3 [facility] Comment on above: Performed By: #### L [id number] ####[facility] ([facility])[address] [place] [address] Chloride [Moles/Vol] 101 mmol/L Normal 98-107 [facility] Comment on above: Performed By: #### L [id number] ####[facility] [place] [address] CO2 [Moles/Vol] 28 mmol/L Normal 21-31 [facility] Comment on above: Performed By: #### L [id number] ####[facility] [place] [address] Creatinine [Mass/Vol] 0.49 mg/dL Low 0.70-1.30 [facility] Comment on above: Performed By: #### L [id number] ####[facility])[address] [place] [address] GLOMERULAR FILTRATION RATE ML/MIN/1.73 SQ M.PREDICTED 106.4 mL/min/1.73m*2 Normal >60.0 [facility] Comment on above: Result Comment: [facility]???s estimated glomerular filtration rate (eGFR) will [...] of individuals. Performed By: #### L [id number] ####[facility] [place] [address] Glucose [Mass/Vol] 113 mg/dL High 70-100 [facility] Comment on above: Performed By: #### L [id number] ####[facility] [place] [address] Potassium [Moles/Vol] 3.9 mmol/L Normal 3.5-5.1 [facility] Comment on above: Performed By: #### L [id number] ####[facility] [place] [address] Sodium [Moles/Vol] 133 mmol/L Low 136-145 [facility] Comment on above: Performed By: #### L [id number] ####[facility] ([facility])[address] [place] [address] Urea nitrogen [Mass/Vol] 13 mg/dL Normal 7-25 [facility] Comment on above: Performed By: #### L [id number] ####[facility] ([facility])[address] [place] [address] UREA NITROGEN/CREATININE (MASS RATIO) IN SER/PLAS 26.5 Normal [facility] Comment on above: Performed By: #### L [id number] ####[facility] ([facility])[address] [place] [address] CBC WITH AUTO DIFFERENTIALon 09-21-2023 Basophils (Bld) [#/Vol] 0.01 10*3/uL Normal 0.00-0.20 [facility] Comment on above: Performed By: #### L [id number] ####[facility] ([facility])[address] [place] [address] Basophils/100 WBC (Bld) 0.2 % Normal 0.0-1.0 [facility] Comment on above: Performed By: #### L [id number] ####[facility] ([facility])[address] [place] [address] Eosinophils (Bld) [#/Vol] 0.01 10*3/uL Normal 0.00-0.50 [facility] Comment on above: Performed By: #### L [id number] ####[facility] ([facility])[address] [place] [address] Eosinophils/100 WBC (Bld) 0.2 % Normal 0.0-6.0 [facility] Comment on above: Performed By: #### L [id number] ####[facility] [place] [place] [address] Erythrocyte distribution width (RBC) [Ratio] 18.0 % High 11.5-15.0 [facility] Comment on above: Performed By: #### L [id number] ####[facility] [facility] [place] [address] ERYTHROCYTE MEAN CORPUSCULAR HEMOGLOBIN CONCENTRATION (G/DL) BY AUTOMATED 31.8 g/dL Low 32.0-35.0 [facility] Comment on above: Performed By: #### L [id number] ####[facility] ([facility])[address] [place] [address] Hematocrit (Bld) [Volume fraction] 31.8 % Low 39.0-55.0 [facility] Comment on above: Performed By: #### L [id number] ####[facility] [place] [address] Hemoglobin (Bld) [Mass/Vol] 10.1 g/dL Low 13.0-17.0 [facility] Comment on above: Performed By: #### L [id number] ####[facility] ([facility])[address] [place] [address] Immature granulocytes (Bld) [#/Vol] 0.03 10*3/uL Normal 0.00-0.20 [facility] Comment on above: Performed By: #### L [id number] ####[facility] ([facility])[address] [place] [address] Immature granulocytes/100 WBC (Bld) 0.5 % Normal 0.0-1.0 [facility] Comment on above: Performed By: #### L [id number] ####[facility] ([facility])[address] [place] [address] Lymphocytes (Bld) [#/Vol] 0.43 10*3/uL Low 1.20-4.00 [facility] Comment on above: Performed By: #### L [id number] ####[facility] ([facility])[address] [place] [address] Lymphocytes/100 WBC (Bld) 7.4 % Low 20.0-45.0 [facility] Comment on above: Performed By: #### L [id number] ####[facility] ([facility])[address] [place] [address] MCH (RBC) [Entitic mass] 26.9 pg Low 27.0-33.0 [facility] Comment on above: Performed By: #### L [id number] ####[facility] ([facility])[address] [address] MCV (RBC) [Entitic vol] 84.8 fL Normal 82.0-98.0 [facility] Comment on above: Performed By: #### L [id number] ####[facility] [place] [address] Monocytes (Bld) [#/Vol] 0.56 10*3/uL Normal 0.10-1.00 [facility] Comment on above: Performed By: #### L [id number] ####[facility] [place] [address] Monocytes/100 WBC (Bld) 9.6 % Normal 5.0-12.0 [facility] Comment on above: Performed By: #### L [id number] ####[facility] ([facility])[address] [place] [address] Neutrophils (Bld) [#/Vol] 4.81 10*3/uL Normal 1.60-7.60 [facility] Comment on above: Performed By: #### L [id number] ####[facility] ([facility])[address] [place] [address] Neutrophils/100 WBC (Bld) 82.1 % High 40.0-72.0 [facility] Comment on above: Performed By: #### L [id number] ####[facility] ([facility])[address] [place] [address] NRBC (PER 100 WBCS) BY AUTOMATED COUNT 0.0 % Normal 0 [facility] Comment on above: Performed By: #### L [id number] ####[facility] [place] [address] PLATELETS (10*3/UL) IN BLOOD AUTOMATED COUNT 122 10*3/uL Low 150-400 [facility] Comment on above: Performed By: #### L [id number] ####[facility] [address] RBC (Bld) [#/Vol] 3.75 10*6/uL Low 4.20-5.70 [facility] Comment on above: Performed By: #### L [id number] ####[facility] ([facility])[address] [address] WBC (Bld) [#/Vol] 5.85 10*3/uL Normal 4.00-10.60 [facility] Comment on above: Performed By: #### L [id number] ####[facility] ([facility])[address] [place] [address] CONSULTon 09-21-2023 CONSULT Normal [facility] HEMOGLOBIN AND HEMATOCRIT, B LOODon 09-21-2023 Hematocrit (Bld) [Volume fraction] 30.8 % Low 39.0-55.0 [facility] Comment on above: Performed By: #### L [id number] ####[facility] [place] [address] Hemoglobin (Bld) [Mass/Vol] 10.2 g/dL Low 13.0-17.0 [facility] Comment on above: Performed By: #### L [id number] ####[facility] ([facility])[address] [place] [address] MAGNESIUMon 09-21-2023 Magnesium [Mass/Vol] 2.0 mg/dL Normal 1.9-2.7 [facility] Comment on above: Performed By: #### L [id number] ####[facility] ([facility])[address] [place] [address] Magnesium [Mass/Vol] 1.5 mg/dL Low 1.9-2.7 [facility] Comment on above: Performed By: #### L [id number] ####[facility] ([facility])[address] [place] [address] PHOSPHORUSon 09-21-2023 Magnesium [Mass/Vol] 3.0 mg/dL Normal 2.5-5.0 [facility] Comment on above: Performed By: #### L [id number] ####[facility] ([facility])[address] [place] [address] PLATELET COUNTon 09-21-2023 PLATELETS (10*3/UL) IN BLOOD AUTOMATED COUNT 144 10*3/uL Low 150-400 [facility] Comment on above: Performed By: #### L [id number] ####[facility] ([facility])[address] [place] [address] POCT GLUCOSE METER UNSOLICIT ED RESULTSon 09-21-2023 Glucose [Mass/Vol] 154 mg/dL High 70-105 [facility] Comment on above: Order Comment: Waive d Testing in the ED is performed under the ED CLIA certificate #[id number]. Result Comment: [email or web address] Performed By: #### L [id number] ####[facility] ([facility])[address] [place] [address] Glucose [Mass/Vol] 217 mg/dL High 70-105 [facility] Comment on above: Order Comment: Waive d Testing in the ED is performed under the ED CLIA certificate #[id number]. Result Comment: [email or web address] Performed By: #### L [id number] ####[facility] ([facility])[address] [place] [address] Glucose [Mass/Vol] 105 mg/dL Normal 70-105 [facility] Comment on above: Order Comment: Waive d Testing in the ED is performed under the ED CLIA certificate #[id number]. Result Comment: [email or web address] Performed By: #### L [id number] ####[facility] ([facility])[address] [place] [address] Glucose [Mass/Vol] 108 mg/dL High 70-105 [facility] Comment on above: Order Comment: Waive d Testing in the ED is performed under the ED CLIA certificate #[id number]. Result Comment: [email or web address] Performed By: #### L [id number] ####[facility] ([facility])[address] [place] [address] VANCOMYCIN, PEAKon 3 VANCOMYCIN (UG/ML) IN SER/PLAS - PEAK 12.1 ug/mL Low 20.0-50.0 [facility] Comment on above: Order Comment: Les meléndez collect the peak at least 1 hour after the infusion has been completed Performed By: #### L [id number] ####[facility] ([facility])[address] [place] [address] [id number] 09-20-2023 [id number] Normal [facility] 30on 09-20-2023 30 The patient is Moderately Stable - Low risk of patient condition declining or worsening The patient's goals for the shift include comfort, safety The clinical goals for the shift include comfort,safety Normal [facility] ANESon 09-20-2023 ANES Normal [facility] BASIC METABOLIC PANELon 09-09 Anion gap [Moles/Vol] 9 mmol/L Normal 7-20 [facility] Comment on above: Performed By: #### L [id number] ####[facility] ([facility])[address] [place] [address] Calcium [Mass/Vol] 8.4 mg/dL Low 8.6-10.3 [facility] Comment on above: Performed By: #### L [id number] ####[facility] ([facility])[address] [place] [address] Chloride [Moles/Vol] 100 mmol/L Normal 98-107 [facility] Comment on above: Performed By: #### L [id number] ####[facility] ([facility])[address] [place] [address] CO2 [Moles/Vol] 27 mmol/L Normal 21-31 [facility] Comment on above: Performed By: #### L [id number] ####[facility] ([facility])[address] [place] [address] Creatinine [Mass/Vol] 0.51 mg/dL Low 0.70-1.30 [facility] Comment on above: Performed By: #### L [id number] ####[facility] ([facility])[address] [place] [address] GLOMERULAR FILTRATION RATE ML/MIN/1.73 SQ M.PREDICTED 105.1 mL/min/1.73m*2 Normal >60.0 [facility] Comment on above: Result Comment: [facility]???s estimated glomerular filtration rate (eGFR) will [...] of individuals. Performed By: #### L [id number] ####[facility] ([facility])[address] [place] [address] Glucose [Mass/Vol] 117 mg/dL High 70-100 [facility] Comment on above: Performed By: #### L [id number] ####[facility] ([facility])[address] [place] [address] Potassium [Moles/Vol] 3.3 mmol/L Low 3.5-5.1 [facility] Comment on above: Performed By: #### L [id number] ####[facility] ([facility])[address] [place] [address] Sodium [Moles/Vol] 133 mmol/L Low 136-145 [facility] Comment on above: Performed By: #### L [id number] ####[facility] ([facility])[address] [place] [address] Urea nitrogen [Mass/Vol] 14 mg/dL Normal 7-25 [facility] Comment on above: Performed By: #### L [id number] ####[facility])[address] [address] UREA NITROGEN/CREATININE (MASS RATIO) IN SER/PLAS 27.5 Normal [facility] Comment on above: Performed By: #### L [id number] ####[facility])[address] [address] Anion gap [Moles/Vol] 11 mmol/L Normal 7-20 [facility] Comment on above: Performed By: #### L [id number] ####[facility] [address] Calcium [Mass/Vol] 9.2 mg/dL Normal 8.6-10.3 [facility] Comment on above: Performed By: #### L [id number] ####[facility] [place] [address] Chloride [Moles/Vol] 102 mmol/L Normal 98-107 [facility] Comment on above: Performed By: #### L [id number] ####[facility] [place] [address] CO2 [Moles/Vol] 25 mmol/L Normal 21-31 [facility] Comment on above: Performed By: #### L [id number] ####[facility] [place] [address] Creatinine [Mass/Vol] 0.53 mg/dL Low 0.70-1.30 [facility] Comment on above: Performed By: #### L [id number] ####[facility] [place] [address] GLOMERULAR FILTRATION RATE ML/MIN/1.73 SQ M.PREDICTED 103.9 mL/min/1.73m*2 Normal >60.0 [facility] Comment on above: Result Comment: [facility]???s estimated glomerular filtration rate (eGFR) will [...] of individuals. Performed By: #### L [id number] ####[facility] [place] [address] Glucose [Mass/Vol] 93 mg/dL Normal 70-100 [facility] Comment on above: Performed By: #### L [id number] ####[facility])[address] [place] [address] Potassium [Moles/Vol] 3.7 mmol/L Normal 3.5-5.1 [facility] Comment on above: Performed By: #### L [id number] ####[facility] [place] [address] Sodium [Moles/Vol] 134 mmol/L Low 136-145 [facility] Comment on above: Performed By: #### L [id number] ####[facility] [place] [address] Urea nitrogen [Mass/Vol] 18 mg/dL Normal 7-25 [facility] Comment on above: Performed By: #### L [id number] ####[facility] ([facility])[address] [place] [address] UREA NITROGEN/CREATININE (MASS RATIO) IN SER/PLAS 34.0 Normal [facility] Comment on above: Performed By: #### L [id number] ####[facility] ([facility])[address] [place] [address] CBCon 09-20-2023 Erythrocyte distribution width (RBC) [Ratio] 18.0 % High 11.5-15.0 [facility] Comment on above: Performed By: #### L [id number] ####[facility] [place] [address] ERYTHROCYTE MEAN CORPUSCULAR HEMOGLOBIN CONCENTRATION (G/DL) BY AUTOMATED 31.9 g/dL Low 32.0-35.0 [facility] Comment on above: Performed By: #### L [id number] ####[facility] ([facility])[address] [place] [address] Hematocrit (Bld) [Volume fraction] 33.5 % Low 39.0-55.0 [facility] Comment on above: Performed By: #### L [id number] ####[facility] ([facility])[address] [place] [address] Hemoglobin (Bld) [Mass/Vol] 10.7 g/dL Low 13.0-17.0 [facility] Comment on above: Performed By: #### L [id number] ####[facility] ([facility])[address] [place] [address] MCH (RBC) [Entitic mass] 27.1 pg Normal 27.0-33.0 [facility] Comment on above: Performed By: #### L [id number] ####[facility] ([facility])[address] [place] [address] MCV (RBC) [Entitic vol] 84.8 fL Normal 82.0-98.0 [facility] Comment on above: Performed By: #### L [id number] ####[facility] ([facility])[address] [place] [address] PLATELETS (10*3/UL) IN BLOOD AUTOMATED COUNT 142 10*3/uL Low 150-400 [facility] Comment on above: Performed By: #### L [id number] ####[facility] [place] [address] RBC (Bld) [#/Vol] 3.95 10*6/uL Low 4.20-5.70 [facility] Comment on above: Performed By: #### L [id number] ####[facility] ([facility])[address] [place] [address] WBC (Bld) [#/Vol] 8.35 10*3/uL Normal 4.00-10.60 [facility] Comment on above: Performed By: #### L [id number] ####[facility] [place] [address] CBC WITH AUTO DIFFERENTIALon 09-20-2023 Basophils (Bld) [#/Vol] 0.00 10*3/uL Normal 0.00-0.20 [facility] Comment on above: Performed By: #### L [id number] ####[facility] [place] [address] Basophils/100 WBC (Bld) 0.0 % Normal 0.0-1.0 [facility] Comment on above: Performed By: #### L [id number] ####[facility] [place] [address] Eosinophils (Bld) [#/Vol] 0.00 10*3/uL Normal 0.00-0.50 [facility] Comment on above: Performed By: #### L [id number] ####[facility] [place] [address] Eosinophils/100 WBC (Bld) 0.0 % Normal 0.0-6.0 [facility] Comment on above: Performed By: #### L [id number] ####[facility] [place] [address] Erythrocyte distribution width (RBC) [Ratio] 17.4 % High 11.5-15.0 [facility] Comment on above: Performed By: #### L [id number] ####[facility] [place] [address] ERYTHROCYTE MEAN CORPUSCULAR HEMOGLOBIN CONCENTRATION (G/DL) BY AUTOMATED 32.1 g/dL Normal 32.0-35.0 [facility] Comment on above: Performed By: #### L [id number] ####[facility] ([facility])[address] [place] [address] Hematocrit (Bld) [Volume fraction] 36.5 % Low 39.0-55.0 [facility] Comment on above: Performed By: #### L [id number] ####[facility] ([facility])[address] [place] [address] Hemoglobin (Bld) [Mass/Vol] 11.7 g/dL Low 13.0-17.0 [facility] Comment on above: Performed By: #### L [id number] ####[facility] ([facility])[address] [place] [address] Immature granulocytes (Bld) [#/Vol] 0.03 10*3/uL Normal 0.00-0.20 [facility] Comment on above: Performed By: #### L [id number] ####[facility] ([facility])[address] [place] [address] Immature granulocytes/100 WBC (Bld) 0.4 % Normal 0.0-1.0 [facility] Comment on above: Performed By: #### L [id number] ####[facility] ([facility])[address] [place] [address] Lymphocytes (Bld) [#/Vol] 0.37 10*3/uL Low 1.20-4.00 [facility] Comment on above: Performed By: #### L [id number] ####[facility] ([facility])[address] [place] [address] Lymphocytes/100 WBC (Bld) 4.9 % Low 20.0-45.0 [facility] Comment on above: Performed By: #### L [id number] ####[facility] ([facility])[address] [place] [address] MCH (RBC) [Entitic mass] 27.4 pg Normal 27.0-33.0 [facility] Comment on above: Performed By: #### L [id number] ####[facility] ([facility])[address] [place] [address] MCV (RBC) [Entitic vol] 85.5 fL Normal 82.0-98.0 [facility] Comment on above: Performed By: #### L [id number] ####[facility] ([facility])[address] [place] [address] Monocytes (Bld) [#/Vol] 0.48 10*3/uL Normal 0.10-1.00 [facility] Comment on above: Performed By: #### L [id number] ####[facility] [place] [address] Monocytes/100 WBC (Bld) 6.3 % Normal 5.0-12.0 [facility] Comment on above: Performed By: #### L [id number] ####[facility] [place] [address] Neutrophils (Bld) [#/Vol] 6.73 10*3/uL Normal 1.60-7.60 [facility] Comment on above: Performed By: #### L [id number] ####[facility] ([facility])[address] [place] [address] Neutrophils/100 WBC (Bld) 88.4 % High 40.0-72.0 [facility] Comment on above: Performed By: #### L [id number] ####[facility] ([facility])[address] [place] [address] NRBC (PER 100 WBCS) BY AUTOMATED COUNT 0.0 % Normal 0 [facility] Comment on above: Performed By: #### L [id number] ####[facility] ([facility])[address] [place] [address] PLATELETS (10*3/UL) IN BLOOD AUTOMATED COUNT 122 10*3/uL Low 150-400 [facility] Comment on above: Performed By: #### L [id number] ####[facility] ([facility])[address] [place] [address] RBC (Bld) [#/Vol] 4.27 10*6/uL Normal 4.20-5.70 [facility] Comment on above: Performed By: #### L [id number] ####[facility] ([facility])[address] [place] [address] WBC (Bld) [#/Vol] 7.61 10*3/uL Normal 4.00-10.60 [facility] Comment on above: Performed By: #### L [id number] ####[facility] ([facility])[address] [place] [address] CONSULTon 09-20-2023 CONSULT Normal [facility] CONSULT Normal [facility] DEVICE CULTUREon 09-20-2023 Bacteria identified Cx Nom (Unsp spec) No growth at 3 days [facility] Comment on above: Order Comment: Pre-o p diagnosis:Peripheral artery disease (CMS/HCC) [I73.9] Performed By: #### D EVICE CULTURE ####[facility] ([facility])[address] [place] [address] Bacteria identified Cx Nom (Unsp spec) No growth at 3 days [facility] Comment on above: Order Comment: Pre-o p diagnosis:Peripheral artery disease (CMS/HCC) [I73.9] Performed By: #### D EVICE CULTURE ####[facility] ([facility])[address] [place] [address] MAGNESIUMon 09-20-2023 Magnesium [Mass/Vol] 1.5 mg/dL Low 1.9-2.7 [facility] Comment on above: Performed By: #### L [id number] ####[facility] ([facility])[address] [place] [address] Magnesium [Mass/Vol] 1.9 mg/dL Normal 1.9-2.7 [facility] Comment on above: Performed By: #### L [id number] ####[facility] ([facility])[address] [place] [address] NURSNOTEon 09-20-2023 NURSNOTE Normal [facility] OPNOTEon 09-20-2023 OPNOTE Normal [facility] PHOSPHORUSon 09-20-2023 Magnesium [Mass/Vol] 2.9 mg/dL Normal 2.5-5.0 [facility] Comment on above: Performed By: #### L [id number] ####[facility] ([facility])[address] [place] [address] Magnesium [Mass/Vol] 3.0 mg/dL Normal 2.5-5.0 [facility] Comment on above: Performed By: #### L [id number] ####[facility] ([facility])[address] [place] [address] POCT ACTIVATED CLOTTING TIME UNSOLICITED RESULTSon 09-20-2023 POC ACTIVATED CLOTTING TIME 154 sec High 82-152 [facility] Comment on above: Performed By: #### L [id number] ####[facility] ([employer])[address] [place] [address] POC ACTIVATED CLOTTING TIME 199 sec High 82-152 [facility] Comment on above: Performed By: #### L [id number] ####[facility] ([facility])[address] [place] [address] POC ACTIVATED CLOTTING TIME 222 sec High 82-152 [facility] Comment on above: Performed By: #### L [id number] ####[facility] ([employer])[address] [place] [address] POC ACTIVATED CLOTTING TIME 154 sec High 82-152 [facility] Comment on above: Performed By: #### L [id number] ####[facility] ([facility])[address] [place] [address] POCT GLUCOSE METER UNSOLICIT ED RESULTSon 09-20-2023 Glucose [Mass/Vol] 156 mg/dL High 70-105 [facility] Comment on above: Order Comment: Waive d Testing in the ED is performed under the ED CLIA certificate #[id number]. Result Comment: [email or web address] Performed By: #### L [id number] ####[facility] ([facility])[address] [place] [address] Glucose [Mass/Vol] 105 mg/dL Normal 70-105 [facility] Comment on above: Order Comment: Waive d Testing in the ED is performed under the ED CLIA certificate #[id number]. Result Comment: [email or web address] Performed By: #### L [id number] ####[facility] [place] [address] POCT PERFUSION PANEL UNSOLIC ITED RESULTSon 09-20-2023 CO2 [Moles/Vol] 28.0 mmol/L Normal 21.0-29.0 [facility] Comment on above: Performed By: #### L [id number] ####[facility] [place] [address] Glucose [Mass/Vol] 152 mg/dL High 70-105 [facility] Comment on above: Performed By: #### L [id number] ####[facility] [place] [address] HCO3 (Bld) [Moles/Vol] 27.1 mmol/L Normal 23.0-28.0 [facility] Comment on above: Performed By: #### L [id number] ####[facility] [place] [address] Hematocrit (Bld) [Volume fraction] 32 % Low 38-51 [facility] Comment on above: Performed By: #### L [id number] ####[facility] ([facility])[address] [place] [address] Hemoglobin (Bld) [Mass/Vol] 10.9 g/dL Low 12.0-17.0 [facility] Comment on above: Performed By: #### L [id number] ####[facility] ([facility])[address] [place] [address] POCT BASE EXCESS 3.0 mmol/L Normal -2.0-3.0 [facility] Comment on above: Performed By: #### L [id number] ####[facility] ([facility])[address] [place] [address] POCT IONIZED CALCIUM 1.27 mmol/L Normal 1.12-1.32 [facility] Comment on above: Performed By: #### L [id number] ####[facility] ([facility])[address] [place] [address] POCT PCO2 40.5 mmHg Low 41.0-51.0 [facility] Comment on above: Performed By: #### L [id number] ####[facility] ([facility])[address] [place] [address] POCT PH 7.43 High 7.31-7.41 [facility] Comment on above: Performed By: #### L [id number] ####[facility] ([facility])[address] [place] [address] POCT PO2 280 mmHg High 80-105 [facility] Comment on above: Performed By: #### L [id number] ####[facility] ([facility])[address] [place] [address] POCT SO2 100 % High 95-98 [facility] Comment on above: Performed By: #### L [id number] ####[facility] ([facility])[address] [place] [address] Potassium [Moles/Vol] 3.0 mmol/L Low 3.5-4.9 [facility] Comment on above: Performed By: #### L [id number] ####[facility] ([facility])[address] [place] [address] Sodium [Moles/Vol] 135 mmol/L Low 138.0-146.0 [facility] Comment on above: Performed By: #### L [id number] ####[facility] ([facility])[address] [place] [address] CO2 [Moles/Vol] 29.0 mmol/L Normal 21.0-29.0 [facility] Comment on above: Performed By: #### L [id number] ####[facility] ([facility])[address] [place] [address] Glucose [Mass/Vol] 122 mg/dL High 70-105 [facility] Comment on above: Performed By: #### L [id number] ####[facility] ([facility])[address] [place] [address] HCO3 (Bld) [Moles/Vol] 27.9 mmol/L Normal 23.0-28.0 [facility] Comment on above: Performed By: #### L [id number] ####[facility] (BEAKER)[address], [place] [address] Hematocrit (Bld) [Volume fraction] 34 % Low 38-51 [facility] Comment on above: Performed By: #### L [id number] ####[facility] ([facility])[address], [place] [address] Hemoglobin (Bld) [Mass/Vol] 11.6 g/dL Low 12.0-17.0 [facility] Comment on above: Performed By: #### L [id number] ####[facility] ([facility])[address] [place] [address] POCT BASE EXCESS 4.0 mmol/L High -2.0-3.0 [facility] Comment on above: Performed By: #### L [id number] ####[facility] ([facility])[address] [place] [address] POCT IONIZED CALCIUM 1.11 mmol/L Low 1.12-1.32 [facility] Comment on above: Performed By: #### L [id number] ####[facility] ([facility])[address] [place] [address] POCT PCO2 38.6 mmHg Low 41.0-51.0 [facility] Comment on above: Performed By: #### L [id number] ####[facility] ([facility])[address] [place] [address] POCT PH 7.47 High 7.31-7.41 [facility] Comment on above: Performed By: #### L [id number] ####[facility] ([facility]ER)[address] [place] [address] POCT PO2 284 mmHg High 80-105 [facility] Comment on above: Performed By: #### L [id number] ####[facility] [place] [address] POCT SO2 100 % High 95-98 [facility] Comment on above: Performed By: #### L [id number] ####[facility] ([facility])[address] [place] [address] [address] Potassium [Moles/Vol] 3.1 mmol/L Low 3.5-4.9 [facility] Comment on above: Performed By: #### L [id number] ####[facility] ([facility] [address] Sodium [Moles/Vol] 137 mmol/L Low 138.0-146.0 [facility] Comment on above: Performed By: #### L [id number] ####[facility] ([facility])[address] [place] [address] PROTIME-INRon 09-20-2023 INR IN PPP BY COAGULATION ASSAY 1.17 High 0.90-1.10 [facility] Comment on above: Result Comment: ACCC [...] CHEST 1995;108:231S-246S. Performed By: #### L [id number] ####[facility] ([employer])[address] [place] [address] PROTHROMBIN TIME (PT) IN PPP BY COAGULATION ASSAY 14.9 Seconds High 12.3-14.8 [facility] Comment on above: Performed By: #### L [id number] ####[facility] ([employer])[address] [place] [address] TISSUE CULTUREon 09-20-2023 GRAM STAIN RESULT Normal [facility] Comment on above: Order Comment: Pre-o p diagnosis:Peripheral artery disease (CMS/HCC) [I73.9]Rare Growth Skin Rita Result Comment: Many Polymorphonuclear leukocytesNo organisms seen Performed By: #### L [id number] ####[facility] ([employer])[address] [place] [address] 30on 09-19-2023 30 Normal [facility] 30 Normal [facility] ANESon 09-19-2023 ANES Normal [facility] APTTon 09-19-2023 ACTIVATED PARTIAL THROMBOPLASTIN TIME IN PPP BY COAGULATION ASSAY 35.0 Seconds Normal 25.0-35.0 [facility] Comment on above: Result Comment: Clin ical significance of the APTT is questionable in the presence of heparin. Performed By: #### L [id number] ####[facility] ([employer])[address] [place] [address] BASIC METABOLIC PANELon 09-09 Anion gap [Moles/Vol] 7 mmol/L Normal 7-20 [facility] Comment on above: Performed By: #### L [id number] ####[facility] ([employer])[address] [place] [address] Calcium [Mass/Vol] 8.8 mg/dL Normal 8.6-10.3 [facility] Comment on above: Performed By: #### L [id number] ####[facility] ([facility])[address] [place] [address] Chloride [Moles/Vol] 103 mmol/L Normal 98-107 [facility] Comment on above: Performed By: #### L [id number] ####[facility] ([facility])[address] [place] [address] CO2 [Moles/Vol] 28 mmol/L Normal 21-31 [facility] Comment on above: Performed By: #### L [id number] ####[facility] ([facility])[address] [place] [address] Creatinine [Mass/Vol] 0.46 mg/dL Low 0.70-1.30 [facility] Comment on above: Performed By: #### L [id number] ####[facility] ([facility])[address] [place] [address] GLOMERULAR FILTRATION RATE ML/MIN/1.73 SQ M.PREDICTED 108.4 mL/min/1.73m*2 Normal >60.0 [facility] Comment on above: Result Comment: [facility]???s estimated glomerular filtration rate (eGFR) will [...] of individuals. Performed By: #### L [id number] ####[facility] ([facility])[address] [place] [address] Glucose [Mass/Vol] 166 mg/dL High 70-100 [facility] Comment on above: Performed By: #### L [id number] ####[facility] ([facility])[address] [place] [address] Potassium [Moles/Vol] 3.8 mmol/L Normal 3.5-5.1 [facility] Comment on above: Performed By: #### L [id number] ####[facility] ([facility])[address] [place] [address] Sodium [Moles/Vol] 134 mmol/L Low 136-145 [facility] Comment on above: Performed By: #### L [id number] ####[facility] ([facility])[address] [place] [address] Urea nitrogen [Mass/Vol] 18 mg/dL Normal 7-25 [facility] Comment on above: Performed By: #### L [id number] ####[facility] ([facility])[address] [place] [address] UREA NITROGEN/CREATININE (MASS RATIO) IN SER/PLAS 39.1 Normal [facility] Comment on above: Performed By: #### L [id number] ####[facility] ([facility])[address] [place] [address] CBC WITH AUTO DIFFERENTIALon 09-19-2023 Basophils (Bld) [#/Vol] 0.00 10*3/uL Normal 0.00-0.20 [facility] Comment on above: Performed By: #### L [id number] ####[facility] ([facility])[address] [place] [address] Basophils/100 WBC (Bld) 0.0 % Normal 0.0-1.0 [facility] Comment on above: Performed By: #### L [id number] ####[facility] ([facility])[address] [place] [address] Eosinophils (Bld) [#/Vol] 0.00 10*3/uL Normal 0.00-0.50 [facility] Comment on above: Performed By: #### L [id number] ####[facility] ([facility])[address] [place] [address] Eosinophils/100 WBC (Bld) 0.0 % Normal 0.0-6.0 [facility] Comment on above: Performed By: #### L [id number] ####[facility] ([facility])[address] [place] [address] Erythrocyte distribution width (RBC) [Ratio] 18.8 % High 11.5-15.0 [facility] Comment on above: Performed By: #### L [id number] ####[facility] ([facility])[address] [place] [address] ERYTHROCYTE MEAN CORPUSCULAR HEMOGLOBIN CONCENTRATION (G/DL) BY AUTOMATED 32.5 g/dL Normal 32.0-35.0 [facility] Comment on above: Performed By: #### L [id number] ####[facility] ([facility])[address] [place] [address] Hematocrit (Bld) [Volume fraction] 24.9 % Low 39.0-55.0 [facility] Comment on above: Performed By: #### L [id number] ####[facility] ([facility])[address] [place] [address] Hemoglobin (Bld) [Mass/Vol] 8.1 g/dL Low 13.0-17.0 [facility] Comment on above: Performed By: #### L [id number] ####[facility] ([facility])[address] [place] [address] Immature granulocytes (Bld) [#/Vol] 0.02 10*3/uL Normal 0.00-0.20 [facility] Comment on above: Performed By: #### L [id number] ####[facility] ([facility])[address] [place] [address] Immature granulocytes/100 WBC (Bld) 0.4 % Normal 0.0-1.0 [facility] Comment on above: Performed By: #### L [id number] ####[facility] ([facility])[address] [place] [address] Lymphocytes (Bld) [#/Vol] 0.14 10*3/uL Low 1.20-4.00 [facility] Comment on above: Performed By: #### L [id number] ####[facility] ([facility])[address] [place] [address] Lymphocytes/100 WBC (Bld) 2.7 % Low 20.0-45.0 [facility] Comment on above: Performed By: #### L [id number] ####[facility] ([facility])[address] [place] [address] MCH (RBC) [Entitic mass] 27.3 pg Normal 27.0-33.0 [facility] Comment on above: Performed By: #### L [id number] ####[facility] ([facility])[address], [place] [address] MCV (RBC) [Entitic vol] 83.8 fL Normal 82.0-98.0 [facility] Comment on above: Performed By: #### L [id number] ####[facility] ([facility])[address] [place] [address] Monocytes (Bld) [#/Vol] 0.09 10*3/uL Low 0.10-1.00 [facility] Comment on above: Performed By: #### L [id number] ####[facility] ([facility])[address] [place] [address] Monocytes/100 WBC (Bld) 1.8 % Low 5.0-12.0 [facility] Comment on above: Performed By: #### L [id number] ####[facility] ([facility])[address] [place] [address] Neutrophils (Bld) [#/Vol] 4.87 10*3/uL Normal 1.60-7.60 [facility] Comment on above: Performed By: #### L [id number] ####[facility] ([facility])[address] [place] [address] Neutrophils/100 WBC (Bld) 95.1 % High 40.0-72.0 [facility] Comment on above: Performed By: #### L [id number] ####[facility] ([facility])[address] [place] [address] NRBC (PER 100 WBCS) BY AUTOMATED COUNT 0.0 % Normal 0 [facility] Comment on above: Performed By: #### L [id number] ####[facility] ([facility])[address] [place] [address] PLATELETS (10*3/UL) IN BLOOD AUTOMATED COUNT 105 10*3/uL Low 150-400 [facility] Comment on above: Performed By: #### L [id number] ####[facility] ([facility])[address] [place] [address] RBC (Bld) [#/Vol] 2.97 10*6/uL Low 4.20-5.70 [facility] Comment on above: Performed By: #### L [id number] ####[facility] ([facility])[address] [place] [address] WBC (Bld) [#/Vol] 5.12 10*3/uL Normal 4.00-10.60 [facility] Comment on above: Performed By: #### L [id number] ####[facility] ([facility])[address] [place] [address] MAGNESIUMon 09-19-2023 Magnesium [Mass/Vol] 1.7 mg/dL Low 1.9-2.7 [facility] Comment on above: Performed By: #### L [id number] ####[facility] ([facility])[address] [place] [address] MRSA/MSSA DNA NASALon 2022 MRSA DNA Negative Normal Negative [facility] Comment on above: Order Comment: Testi [...] preclude nasal colonization. Performed By: #### L [id number] ####[facility] ([facility])[address] [place] [address] MSSA DNA Negative Normal Negative [facility] Comment on above: Order Comment: Testi [...] preclude nasal colonization. Performed By: #### L [id number] ####[facility] ([facility])[address] [place] [address] PHOSPHORUSon 09-19-2023 Magnesium [Mass/Vol] 3.1 mg/dL Normal 2.5-5.0 [facility] Comment on above: Performed By: #### L [id number] ####[facility] ([facility])[address] [place] [address] POCT GLUCOSE METER UNSOLICIT ED RESULTSon 09-19-2023 Glucose [Mass/Vol] 244 mg/dL High 70-105 [facility] Comment on above: Order Comment: Waive d Testing in the ED is performed under the ED CLIA certificate #[id number]. Result Comment: [email or web address] Performed By: #### L [id number] ####[facility] ([facility])[address] [place] [address] Glucose [Mass/Vol] 140 mg/dL High 70-105 [facility] Comment on above: Order Comment: Waive d Testing in the ED is performed under the ED CLIA certificate #[id number]. Result Comment: [email or web address] Performed By: #### L [id number] ####[facility] ([facility])[address] [place] [address] Glucose [Mass/Vol] 192 mg/dL High 70-105 [facility] Comment on above: Order Comment: Waive d Testing in the ED is performed under the ED CLIA certificate #[id number]. Result Comment: elac umsky Performed By: #### L [id number] ####[facility] ([employer])[address] [place] [address] Glucose [Mass/Vol] 163 mg/dL High 70-105 [facility] Comment on above: Order Comment: Waive d Testing in the ED is performed under the ED CLIA certificate #[id number]. Result Comment: elac umsky Performed By: #### L [id number] ####[facility] ([employer])[address] [place] [address] PROTIME-INRon 09-19-2023 INR IN PPP BY COAGULATION ASSAY 1.27 High 0.90-1.10 [facility] Comment on above: Result Comment: ACCC [...] CHEST 1995;108:231S-246S. Performed By: #### L [id number] ####[facility] ([employer])[address] [place] [address] PROTHROMBIN TIME (PT) IN PPP BY COAGULATION ASSAY 16.0 Seconds High 12.3-14.8 [facility] Comment on above: Performed By: #### L [id number] ####[facility] ([facility])[address] [place] [address] TYPE AND SCREENon 09-19-2023 AB SCREEN Negative Normal [facility] Comment on above: Performed By: #### L [id number] ####[facility], ABO group Nom (Bld) O Normal [facility] Comment on above: Performed By: #### L [id number] ####[facility], RH TYPE IN BLOOD Positive Normal [facility] Comment on above: Performed By: #### L [id number] ####[facility], BASIC METABOLIC PANELon 09-09 Anion gap [Moles/Vol] 8 mmol/L Normal 7-20 [facility] Comment on above: Performed By: #### L [id number] ####[facility] ([facility])[address] [place] [address] Calcium [Mass/Vol] 8.4 mg/dL Low 8.6-10.3 [facility] Comment on above: Performed By: #### L [id number] ####[facility] ([facility])[address] [place] [address] Chloride [Moles/Vol] 99 mmol/L Normal 98-107 [facility] Comment on above: Performed By: #### L [id number] ####[facility] ([facility])[address] [place] [address] CO2 [Moles/Vol] 28 mmol/L Normal 21-31 [facility] Comment on above: Performed By: #### L [id number] ####[facility] ([facility])[address] [place] [address] Creatinine [Mass/Vol] 0.52 mg/dL Low 0.70-1.30 [facility] Comment on above: Performed By: #### L [id number] ####[facility] ([facility])[address] [place] [address] GLOMERULAR FILTRATION RATE ML/MIN/1.73 SQ M.PREDICTED 104.5 mL/min/1.73m*2 Normal >60.0 [facility] Comment on above: Result Comment: [facility]???s estimated glomerular filtration rate (eGFR) will [...] of individuals. Performed By: #### L [id number] ####[facility] ([facility])[address] [place] [address] Glucose [Mass/Vol] 193 mg/dL High 70-100 [facility] Comment on above: Performed By: #### L [id number] ####[facility] ([facility])[address] [place] [address] Potassium [Moles/Vol] 3.7 mmol/L Normal 3.5-5.1 [facility] Comment on above: Performed By: #### L [id number] ####[facility] ([facility])[address] [place] [address] Sodium [Moles/Vol] 131 mmol/L Low 136-145 [facility] Comment on above: Performed By: #### L [id number] ####[facility] [place] [address] Urea nitrogen [Mass/Vol] 19 mg/dL Normal 7-25 [facility] Comment on above: Performed By: #### L [id number] ####[facility] ([facility])[address] [place] [address] UREA NITROGEN/CREATININE (MASS RATIO) IN SER/PLAS 36.5 Normal [facility] Comment on above: Performed By: #### L [id number] ####[facility] ([facility])[address] [place] [address] CBC WITH AUTO DIFFERENTIALon 09-18-2023 Basophils (Bld) [#/Vol] 0.00 10*3/uL Normal 0.00-0.20 [facility] Comment on above: Performed By: #### L [id number] ####[facility] ([facility])[address] [place] [address] Basophils/100 WBC (Bld) 0.0 % Normal 0.0-1.0 [facility] Comment on above: Performed By: #### L [id number] ####[facility] ([facility])[address] [place] [address] Eosinophils (Bld) [#/Vol] 0.00 10*3/uL Normal 0.00-0.50 [facility] Comment on above: Performed By: #### L [id number] ####[facility] ([facility])[address] [place] [address] Eosinophils/100 WBC (Bld) 0.0 % Normal 0.0-6.0 [facility] Comment on above: Performed By: #### L [id number] ####[facility] ([facility] [address] Erythrocyte distribution width (RBC) [Ratio] 19.1 % High 11.5-15.0 [facility] Comment on above: Performed By: #### L [id number] ####[facility] ([facility])[address] [place] [address] ERYTHROCYTE MEAN CORPUSCULAR HEMOGLOBIN CONCENTRATION (G/DL) BY AUTOMATED 31.9 g/dL Low 32.0-35.0 [facility] Comment on above: Performed By: #### L [id number] ####[facility] ([facility])[address] [place] [address] Hematocrit (Bld) [Volume fraction] 25.4 % Low 39.0-55.0 [facility] Comment on above: Performed By: #### L [id number] ####[facility] (BEAKER)[place] [address] Hemoglobin (Bld) [Mass/Vol] 8.1 g/dL Low 13.0-17.0 [facility] Comment on above: Performed By: #### L [id number] ####[facility] ([facility])[address] [place] [address] Immature granulocytes (Bld) [#/Vol] 0.03 10*3/uL Normal 0.00-0.20 [facility] Comment on above: Performed By: #### L [id number] ####[facility] ([facility])[address] [place] [address] Immature granulocytes/100 WBC (Bld) 0.3 % Normal 0.0-1.0 [facility] Comment on above: Performed By: #### L [id number] ####[facility] ([facility])[address] [place] [address] Lymphocytes (Bld) [#/Vol] 0.22 10*3/uL Low 1.20-4.00 [facility] Comment on above: Performed By: #### L [id number] ####[facility] ([facility])[address] [place] [address] Lymphocytes/100 WBC (Bld) 2.1 % Low 20.0-45.0 [facility] Comment on above: Performed By: #### L [id number] ####[facility] ([facility])[address] [place] [address] MCH (RBC) [Entitic mass] 26.8 pg Low 27.0-33.0 [facility] Comment on above: Performed By: #### L [id number] ####[facility] ([facility])[address] [place] [address] MCV (RBC) [Entitic vol] 84.1 fL Normal 82.0-98.0 [facility] Comment on above: Performed By: #### L [id number] ####[facility] ([facility])[address] [place] [address] Monocytes (Bld) [#/Vol] 0.12 10*3/uL Normal 0.10-1.00 [facility] Comment on above: Performed By: #### L [id number] ####[facility] ([facility])[address] [place] [address] Monocytes/100 WBC (Bld) 1.2 % Low 5.0-12.0 [facility] Comment on above: Performed By: #### L [id number] ####[facility] ([facility])[address] [place] [address] Neutrophils (Bld) [#/Vol] 9.88 10*3/uL High 1.60-7.60 [facility] Comment on above: Performed By: #### L [id number] ####[facility] ([facility])[address] [place] [address] Neutrophils/100 WBC (Bld) 96.4 % High 40.0-72.0 [facility] Comment on above: Performed By: #### L [id number] ####[facility] ([facility])[address] [place] [address] NRBC (PER 100 WBCS) BY AUTOMATED COUNT 0.0 % Normal 0 [facility] Comment on above: Performed By: #### L [id number] ####[facility] ([facility])[address] [place] [address] PLATELETS (10*3/UL) IN BLOOD AUTOMATED COUNT 125 10*3/uL Low 150-400 [facility] Comment on above: Performed By: #### L [id number] ####[facility] ([facility])[address] [place] [address] RBC (Bld) [#/Vol] 3.02 10*6/uL Low 4.20-5.70 [facility] Comment on above: Performed By: #### L [id number] ####[facility] ([facility])[address] [place] [address] WBC (Bld) [#/Vol] 10.25 10*3/uL Normal 4.00-10.60 [facility] Comment on above: Performed By: #### L [id number] ####[facility] ([facility])[address] [place] [address] CTA AORTA AND BILATERAL ILIO FEMORAL RUNOFF W AND/OR WO IV CONTRASTon 09-18-2023 CTA AORTA AND BILATERAL ILIOFEMORAL RUNOFF W AND/OR WO IV CONTRAST Normal [facility] CTA CHEST W AND/OR WO IV CON TRASTon 09-18-2023 CTA CHEST W AND/OR WO IV CONTRAST Normal [facility] EDNURSon 09-18-2023 EDNURS Normal [facility] EDPROVon 09-18-2023 EDPROV Invalid Interpretation Code [facility] HPon 09-18-2023 HP Normal [facility] LACTIC ACID WITH 4 HOUR REFL EXon 09-18-2023 LACTATE (MMOL/L) IN SER/PLAS 1.6 mmol/L Normal 0.5-2.2 [facility] Comment on above: Performed By: #### L [id number] ####[facility] ([facility])[address] [place] [address] MAGNESIUMon 09-18-2023 Magnesium [Mass/Vol] 1.6 mg/dL Low 1.9-2.7 [facility] Comment on above: Performed By: #### L [id number] ####[facility] ([facility])[address] [place] [address] PHOSPHORUSon 09-18-2023 Magnesium [Mass/Vol] 3.1 mg/dL Normal 2.5-5.0 [facility] Comment on above: Performed By: #### L [id number] ####[facility] ([facility])[address] [place] [address] POCT GLUCOSE METER UNSOLICIT ED RESULTSon 09-18-2023 Glucose [Mass/Vol] 228 mg/dL High 70-105 [facility] Comment on above: Order Comment: Waive d Testing in the ED is performed under the ED CLIA certificate #[id number]. Result Comment: [email or web address] Performed By: #### L [id number] ####[facility] ([facility]ER)[address] [place] [address] Follow-Upon 08-31-2023 Follow-Up Normal [facility] 36on 08-12-2023 36 Normal [facility] Telephoneon 08-12-2023 Telephone Normal [facility] Physician Referralon 023 Physician Referral [id number] [id number]#1.00TIF F [facility] Follow-Upon 06-20-2023 Follow-Up Normal [facility] Follow-Upon 05-16-2023 Follow-Up [facility] Consent for Treatmenton 04-11 Consent for Treatment [id number]#[id number]: 127 [facility] Heart and Vascular Office/Cl inic Noteon 05-09-2023 Heart and Vascular Office/Clinic Note [facility] Comment on above: Result Comment: Elec tronically Signed By: Erwin Hurd MD\.br\Date and Time Signed: 05/09/23 09:55 EDT Reminderson 05-05-2023 Reminders [facility] Consent for Anesthesiaon Consent for Anesthesia [id number]#1.00C D:127 [facility] IntraOperative Documentson 0 04-19-2023 IntraOperative Documents [id number]#1.00CD: 127 [facility] IntraOperative Documentson 0 04-15-2023 IntraOperative Documents [id number]#1.00CD :127 [facility] Operative Reporton Operative Report [facility] Comment on above: Result Comment: Elec tronically Signed By: Vickey WISE, Erwin Evans\.br\Date and Time Signed: 04/14/23 12:35 EDT Progress Note-Physicianon Progress Note-Physician Normal [facility] Comment on above: Result Comment: Elec tronically Signed By: MD Horner Ahmad F\.br\Date and Time Signed: 04/14/23 19:33 EDT Progress Note-Physician [facility] Comment on above: Result Comment: Elec tronically Signed By: MD Horner Ahmad F\.br\Date and Time Signed: 04/14/23 19:28 EDT Consent for Anesthesiaon Consent for Anesthesia [id number] D:127 Normal [facility] Discharge Instructionson Discharge Instructions [id number]#1.00C D:127 Normal [facility] Main OR Intraoperative Recor don 04-13-2023 Main OR Intraoperative Record Normal [facility] Capillary Glucose POCon Glucose [Mass/Vol] 97 mg/dL Normal 55-99 [facility] Comment on above: Result Comment: Sayra BalderramaNo Coverage Given Performed By: #### [id number] ####The [facility] [address] [place] [address] Consent for Procedure/Surger yon 04-11-2023 Consent for Procedure/Surgery [id number]#[id number] :127 Normal [facility] Consent for Treatmenton Consent for Treatment [id number]#1.00CD: 127 Normal [facility] Discharge Instructionson Discharge Instructions Normal [facility] Comment on above: Result Comment: Elec tronically Signed By: Rakesh GUARDADO, Karissa Mckeon\.br\Date and Time Signed: 04/11/23 15:05 EDT H&P Updateon 04-11-2023 H&P Update [id number]#[id number] :127 Normal [facility] Main OR PACU I Recordon 07-0 Main OR PACU I Record Normal Fis her [facility] Main OR Preoperative Recordo n 04-11-2023 Main OR Preoperative Record Normal [facility] Monitor Recordon 04-11-2023 Monitor Record [id number]#1.00CD :127 Normal [facility] PT & PTTon 04-11-2023 aPTT Coag (PPP) [Time] 38.1 second(s) High 25.1-36.5 [facility] Comment on above: Result Comment: Para meter [...] the same coagulation reagent and instrumentation as [facility]. Currently there are no coagulation studies available worldwide for children to 14 days, and no normal ranges. Heparin therapeutic range (represented by Anti-Factor Xa activity of 0.2 - 0.4 U/mL) corresponds to PTT of 56.6 - 109.0 sec. Performed By: #### 1 [id number] ####[facility] [address] [place] [address] INR Coag (PPP) [Relative time] 1.2 {INR} Invalid Interpretation Code [facility] Comment on above: Result Comment: INR results are specifically intended to assess patients stabilized on long-term Anticoagulation therapy suggested INR?s ?Less Intensive Anticoagulation? 2.0 ? 3.0Conventional Range 3.0 ? 4.5 Performed By: #### 1 [id number] ####[facility] [address] [place] [address] PT Coag (PPP) [Time] 13.3 second(s) High 9.4-12.5 [facility] Comment on above: Result Comment: 15 d [...] the same coagulation reagent and instrumentation as [facility]. Currently there are no coagulation studies available worldwide for children to 14 days, and no normal ranges. Performed By: #### 1 [id number] ####[facility] [address] [place] [address] Patient Education - Texton 0 04-11-2023 Patient Education - Text Normal [facility] BMPon 04-08-2023 Creatinine [Mass/Vol] 0.6 mg/dL Normal 0.5-1.3 [facility] Comment on above: Performed By: #### 1 8541581, 8938058, 3901646, 6138055, 0193158, 03666117 ####[facility] [address] [place] [address] Urea nitrogen [Mass/Vol] 27 mg/dL High 5-21 [facility] Comment on above: Performed By: #### 1 7331510, 1828494, 1470853, 6216809, 6498364, 05109441 ####[facility] [address] [place] [address] Urea nitrogen/Creatinine [Mass ratio] 45 No Units High 10-20 [facility] Comment on above: Performed By: #### 1 1676976, 7363007, 0200790, 0396581, 4538451, 42204636 ####[facility] [address] [place] [address] Anion gap [Moles/Vol] 9 mmol/L Normal 6-16 [facility] Comment on above: Performed By: #### 1 9520367, 3194733, 9675106, 1642264, 1387948, 19930032 ####[facility] [address] [place] [address] Calcium [Mass/Vol] 8.5 mg/dL Low 8.9-11.1 [facility] Comment on above: Performed By: #### 1 2684394, 6648207, 7100121, 0397666, 3360037, 64409427 ####[facility] [address] AveNconne[address] [place] [address] Chloride [Moles/Vol] 99 mmol/L Low 101-111 [facility] Comment on above: Performed By: #### 1 4101985, 9409874, 4186910, 5115574, 1499574, 14377243 ####[facility] [address] [place] [address] CO2 [Moles/Vol] 28 mmol/L Normal 21-31 [facility] Comment on above: Performed By: #### 1 8524555, 0431099, 3080115, 5115766, 9382725, 85339614 ####[facility] [address] [place] [address] Glucose [Mass/Vol] 163 mg/dL Normal 55-199 [facility] Comment on above: Result Comment: If t his glucose result represents a fasting glucose, interpretation should refer to the following reference range: 55-99 mg/dL Performed By: #### 1 4535680, 8427365, 4180345, 9419972, 3259535, 34135709 ####[facility] [address] AveN[address] [place] [address] Potassium [Moles/Vol] 3.7 mmol/L Normal 3.5-5.3 [facility] Comment on above: Performed By: #### 1 0034784, 0670844, 0027639, 5089139, 5178989, 78804971 ####[facility] [address] [place] [address] Sodium [Moles/Vol] 132 mmol/L Low 135-145 [facility] Comment on above: Performed By: #### 1 7929661, 6204841, 7260878, 5773982, 1610794, 79525888 ####[facility] [address] [place] [address] CBC w/Indiceson 04-08-2023 Erythrocyte distribution width (RBC) [Ratio] 20.5 % High 10.9-14.2 [facility] Comment on above: Performed By: #### 1 3070496, 9158781, 4119134, 4517844, 2229459, 43431983 ####[facility] [address] [place] [address] Hematocrit (Bld) [Volume fraction] 31.4 % Low 37.7-49.0 [facility] Comment on above: Performed By: #### 1 1611337, 4724330, 3113245, 6640521, 7997182, 31223770 ####[facility] [address] [place] [address] Hemoglobin (Bld) [Mass/Vol] 10.2 g/dL Low 13.5-17.5 [facility] Comment on above: Performed By: #### 1 8981205, 7531726, 0492303, 1483283, 8602720, 68306282 ####[facility] [address] [place] [address] MCH (RBC) [Entitic mass] 30.3 pg Normal 27.0-34.0 [facility] Comment on above: Performed By: #### 1 1039904, 5492859, 0995467, 2854817, 2076172, 43912500 ####[facility] [address] [place] [address] MCHC (RBC) [Mass/Vol] 32.6 g/dL Normal 31.4-36.0 [facility] Comment on above: Performed By: #### 1 1823336, 6892505, 7208586, 3394318, 2669500, 86073933 ####[facility] [address] [place] [address] MCV (RBC) [Entitic vol] 92.9 fL Normal 80.0-100.0 [facility] Comment on above: Performed By: #### 1 1148991, 3372094, 2862034, 9388025, 2277859, 73388284 ####[facility] [address] [place] [address] Platelet mean volume (Bld) [Entitic vol] 9.2 fL Normal 6.4-10.8 [facility] Comment on above: Performed By: #### 1 6261515, 6706391, 1157265, 9340579, 6444742, 64878015 ####[address] [address] Platelets (Bld) [#/Vol] 156.0 E9/L Normal 150.0-500.0 [facility] Comment on above: Performed By: #### 1 3803788, 8096442, 2478105, 0565879, 6177657, 63335190 ####[address] [address] RBC (Bld) [#/Vol] 3.4 E12/L Low 4.3-5.9 [facility] Comment on above: Performed By: #### 1 7827133, 4039911, 4758820, 5447216, 4642452, 28065963 ####[facility] [address] [place] [address] WBC corrected for nucl RBC Auto (Bld) [#/Vol] 3.6 E9/L Low 4.0-11.0 [facility] Comment on above: Performed By: #### 1 5957895, 5561309, 5273252, 2462575, 0652292, 76382232 ####[address] [place] [address] CHEMISTRYOrdered By: SYSTEM SYSTEM on 04-08-2023 Anion gap [Moles/Vol] 9 mmol/L Normal 6 - 16 mEq/L F [facility] Remisol Calcium [Mass/Vol] 8.5 mg/dL Low 8.9 - 11. 1 mg/dL [facility]isol Chloride [Moles/Vol] 99 mmol/L Low 101 - 1 11 mmol/L [facility] CO2 [Moles/Vol] 28 mmol/L Normal 21 - 31 mmol/L FT Rem[facility] Creatinine [Mass/Vol] 0.6 mg/dL Normal 0.5 - 1.3 mg/dL [facility] Remisol GFR/1.73 sq M.predicted among non-blacks MDRD (S/P/Bld) [Vol rate/Area] 100 mL/min/1.73 m2 Normal >=59mL/min/1 .73 m2 FT Chem S Glucose [Mass/Vol] 163 mg/dL Normal 55 - 199 mg/dL [facility] Remisol Magnesium [Mass/Vol] 1.9 mg/dL Normal 1.3 - 2 .4 mg/dL [facility] Phosphate [Mass/Vol] 2.7 mg/dL Normal 1.9 - 4 .6 mg/dL [facility] Potassium [Moles/Vol] 3.7 mmol/L Normal 3.5 - 5.3 mmol/L [facility] Sodium [Moles/Vol] 132 mmol/L Low 135 [...] - 1 2.5 second(s) [facility] Auto Coag Consent for Treatmenton 03-12 Consent for Treatment [id number]#1.00CD: 127 Normal [facility] Formson 04-08-2023 Forms [id number]#1.00CD :127 Normal [facility] HEMATOLOGYOrdered By: Fabi Massey on 04-08-2023 Erythrocyte distribution width (RBC) [Ratio] 20.5 % High 10.9 - 14.2 % [facility] HemeAutoSS Hematocrit (Bld) [Volume fraction] 31.4 % Low 37.7 - 49.0 % [facility]eAutoSS Hemoglobin (Bld) [Mass/Vol] 10.2 g/dL Low 13.5 - 17.5 gm/dL [facility]eAutoSS MCH (RBC) [Entitic mass] 30.3 pg Normal 27.0 - 34.0 pg [facility]eAutoSS MCHC (RBC) [Mass/Vol] 32.6 g/dL Normal 31.4 - 36.0 gm/dL [facility]eAutoSS MCV (RBC) [Entitic vol] 92.9 fL Normal 80.0 - 100.0 fL [facility]eAutoSS Platelet mean volume (Bld) [Entitic vol] 9.2 fL Normal 6.4 - 10.8 fL [facility]eAutoSS Platelets (Bld) [#/Vol] 156.0 E9/L Normal 150. 0 - 500.0 E9/L [facility]eAutoSS RBC (Bld) [#/Vol] 3.4 E12/L Low 4.3 - 5.9 E12/L [facility]eAutoSS WBC corrected for nucl RBC Auto (Bld) [#/Vol] 3.6 E9/L Low 4.0 - 11.0 E9/L [facility]eAutoSS Magnesiumon 04-08-2023 Magnesium [Mass/Vol] 1.9 mg/dL Normal 1.3-2.4 [facility] Comment on above: Performed By: #### 1 9878324, 0149020, 5459087, 9883724, 7783308, 97243339 ####[facility] [address] [place] [address] PT & PTTon 04-08-2023 aPTT Coag (PPP) [Time] 40.6 second(s) High 25.1-36.5 [facility] Comment on above: Result Comment: Para meter [...] the same coagulation reagent and instrumentation as [facility]. Currently there are no coagulation studies available worldwide for children to 14 days, and no normal ranges. Heparin therapeutic range (represented by Anti-Factor Xa activity of 0.2 - 0.4 U/mL) corresponds to PTT of 56.6 - 109.0 sec. Performed By: #### 1 8354315, 6349765, 3335782, 8598202, 9528227, 77011283 ####[facility] [address] [place] [address] INR Coag (PPP) [Relative time] 1.7 {INR} Invalid Interpretation Code [facility] Comment on above: Result Comment: INR results are specifically intended to assess patients stabilized on long-term Anticoagulation therapy suggested INR?s ?Less Intensive Anticoagulation? 2.0 ? 3.0Conventional Range 3.0 ? 4.5 Performed By: #### 1 0954320, 4661500, 3162353, 6581015, 5324442, 50153650 ####[facility] [address] [place] [address] PT Coag (PPP) [Time] 19.0 second(s) High 9.4-12.5 [facility] Comment on above: Result Comment: 15 d ays - 4 weeks 1 - 5 months 6 -11 months 1-5 years 6-10 years 11 -17 years Mean: 11.2 (9.5-12.6) Mean: 11.0 (9.7-12.8) Mean: 11.0 (9.8-13.0) Mean: 11.3 (9.9-13.4) Mean: 11.7 (10.0-14.6) Mean: 11.8 (10.0 - 14.1) Pediatric Reference ranges were obtained from a study by Azeem Hernandez et al. prepared from 1437 samples obtained at 7 different centers using the same coagulation reagent and instrumentation as [facility]. Currently there are no coagulation studies available worldwide for children to 14 days, and no normal ranges. Performed By: #### 1 3432655, 3264305, 6660220, 5916550, 5351166, 16164972 ####[facility] [address] [place] [address] Phosphoruson 04-08-2023 Phosphate [Mass/Vol] 2.7 mg/dL Normal 1.9-4.6 [facility] Comment on above: Performed By: #### 1 3803118, 1027555, 9674357, 0433150, 0267863, 67486982 ####[facility] [address] [place] [address] Physician Orderon 04-08-2023 Physician Order [id number]#1.00CD :127 Normal [facility] eGFRon 04-08-2023 GFR/1.73 sq M.predicted among non-blacks MDRD (S/P/Bld) [Vol rate/Area] 100 mL/min/1.73 m2 Normal >=59 [facility] Comment on above: Order Comment: Order added by Discern Expert. 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 Kidney failure is indicated at less than 15 mL/min/1.73m2. Performed By: #### 1 8183977, 9261570, 1325887, 3467867, 3418752, 11740162 ####[facility] [address] [place] [address] Formson 04-07-2023 Forms [id number]#1.00CD: 127 Normal [facility] Orders Officeon 04-07-2023 Orders Office [id number]#1.00CD: 127 Normal [facility] Path. Reviewon 04-05-2023 Path Review Anemia with anisocytosis, microcytes and mild polychromasia. Clinical correlation and iron studies are recommended to determine etiology as clinically indicated. Invalid Interpretation Code [facility] Comment on above: Order Comment: Order Added by Discern Expert. Performed By: #### 1 5647874, 3603830, 42127004, 2146936, 4870789, 63791806 ####[facility] [address] [place] [address] Auto Diffon 04-04-2023 Basophils/100 WBC (Bld) 0.9 % Normal 0.0-2.0 [facility] Comment on above: Order Comment: Order Added by Discern Expert. Performed By: #### 1 7081458, 9574566, 25425688, 9026581, 9582324, 17788649 ####[facility] [address] [place] [address] Basophils/Leukocytes Auto (Bld) [Pure # fraction] 0.0 E9/L Normal 0.0-0.2 [facility] Comment on above: Order Comment: Order Added by Discern Expert. Performed By: #### 1 6684292, 1602040, 34185245, 6488735, 5845598, 40908929 ####[facility] [address] [place] [address] Eosinophils/100 WBC (Bld) 1.6 % Normal 0.0-8.0 [facility] Comment on above: Order Comment: Order Added by Discern Expert. Performed By: #### 1 5407791, 5419187, 97178456, 1516515, 3661996, 27770229 ####[facility] [address] [place] [address] Eosinophils/Leukocytes Auto (Bld) [Pure # fraction] 0.1 E9/L Normal 0.0-0.5 [facility] Comment on above: Order Comment: Order Added by Cristiano Expert. Performed By: #### 1 8683853, 0652947, 15441618, 9846494, 7893479, 42466644 ####[facility] [address] [place] [address] Lymphocytes/100 WBC (Bld) 11.7 % Low 14.0-50.0 [facility] Comment on above: Order Comment: Order Added by Cristiano Expert. Performed By: #### 1 7729497, 0508574, 23062102, 2250483, 9486395, 22592520 ####[facility] [address] [place] [address] Lymphocytes/Leukocytes Auto (Bld) [Pure # fraction] 0.4 E9/L Low 1.0-4.0 [facility] Comment on above: Order Comment: Order Added by Cristiano Expert. Performed By: #### 1 0296402, 7916765, 20270532, 4220244, 2123091, 34546245 ####[facility] [address] [place] [address] Monocytes/100 WBC (Bld) 13.1 % Normal 4.0-14.0 [facility] Comment on above: Order Comment: Order Added by Cristiano Expert. Performed By: #### 1 8120484, 0590840, 56994246, 2281395, 1729649, 95482006 ####[address] [place] [address] Monocytes/Leukocytes Auto (Bld) [Pure # fraction] 0.5 E9/L Normal 0.2-1.0 [facility] Comment on above: Order Comment: Order Added by Cristiano Expert. Performed By: #### 1 8473073, 3605900, 04015644, 4197024, 8415079, 59688532 ####[address] [place] [address] Neutrophils/100 WBC (Bld) 72.7 % Normal 36.0-75.0 [facility] Comment on above: Order Comment: Order Added by Discern Expert. Performed By: #### 1 4582130, 6317815, 42601779, 4466899, 0302890, 34635101 ####[facility] [address] [place] [address] Neutrophils/Leukocytes Auto (Bld) [Pure # fraction] 2.7 E9/L Normal 2.0-7.5 [facility] Comment on above: Order Comment: Order Added by Discern Expert. Performed By: #### 1 0376602, 2296637, 03366306, 5145210, 8856251, 52146320 ####[facility] [address] [place] [address] BMPon 04-04-2023 Anion gap [Moles/Vol] 10 mmol/L Normal 6-16 [facility] Comment on above: Performed By: #### 1 3613758, 9618001, 73109239, 5306833, 6106081, 47920675 ####[address] [place] [address] Calcium [Mass/Vol] 9.2 mg/dL Normal 8.9-11.1 [facility] Comment on above: Performed By: #### 1 3052433, 7151430, 70800045, 5125638, 8081708, 41357761 ####[facility] [address] [place] [address] Chloride [Moles/Vol] 102 mmol/L Normal 101-111 [facility] Comment on above: Performed By: #### 1 3710366, 4887939, 32106295, 1086860, 2235071, 91281392 ####[facility] [address] [place] [address] CO2 [Moles/Vol] 28 mmol/L Normal 21-31 [facility] Comment on above: Performed By: #### 1 8887082, 9945413, 67880957, 7270306, 4947495, 11240920 ####[facility] [address] [place] [address] Creatinine [Mass/Vol] 0.5 mg/dL Normal 0.5-1.3 [facility] Comment on above: Performed By: #### 1 3379833, 0700660, 95899378, 3024970, 8397122, 62522576 ####[facility] [address] [place] [address] Glucose [Mass/Vol] 171 mg/dL Normal 55-199 [facility] Comment on above: Result Comment: If t his glucose result represents a fasting glucose, interpretation should refer to the following reference range: 55-99 mg/dL Performed By: #### 1 8770928, 8626850, 80052043, 8833577, 7755836, 58956670 ####[facility] [address] [place] [address] Potassium [Moles/Vol] 3.8 mmol/L Normal 3.5-5.3 [facility] Comment on above: Performed By: #### 1 6668992, 2896344, 59809233, 7193553, 4130331, 25847859 ####[facility] [address] [place] [address] Sodium [Moles/Vol] 136 mmol/L Normal 135-145 [facility] Comment on above: Performed By: #### 1 8402259, 6449347, 90749448, 4694819, 7370114, 58311578 ####[facility] [address] [place] [address] Urea nitrogen [Mass/Vol] 34 mg/dL High 5-21 [facility] Comment on above: Performed By: #### 1 3563354, 1052068, 07118563, 9612495, 5956342, 99868492 ####[facility] [address] [place] [address] Urea nitrogen/Creatinine [Mass ratio] 68 No Units High 10-20 [facility] Comment on above: Performed By: #### 1 4173402, 2513496, 02111594, 6132630, 8554692, 88687800 ####[facility] [address] [place] [address] CBC w/ Auto Diffon 3 Erythrocyte distribution width (RBC) [Ratio] 22.1 % High 10.9-14.2 [facility] Comment on above: Performed By: #### 1 8481457, 3025532, 51808769, 9748841, 6925852, 64906083 ####[facility] [address] [place] [address] Hematocrit (Bld) [Volume fraction] 31.2 % Low 37.7-49.0 [facility] Comment on above: Performed By: #### 1 8858366, 8548082, 00574558, 1698125, 3893834, 01735132 ####[address] [place] [address] Hemoglobin (Bld) [Mass/Vol] 10.1 g/dL Low 13.5-17.5 [facility] Comment on above: Performed By: #### 1 4434878, 0655640, 71222304, 9442767, 6255409, 31631999 ####[facility] [address] [place] [address] MCH (RBC) [Entitic mass] 30.3 pg Normal 27.0-34.0 [facility] Comment on above: Performed By: #### 1 9954015, 3183780, 71598228, 6874220, 0836261, 59001268 ####[facility] [address] [place], [place] [address] MCHC (RBC) [Mass/Vol] 32.4 g/dL Normal 31.4-36.0 [facility] Comment on above: Performed By: #### 1 7101203, 6861136, 30941267, 2126930, 0265673, 02781058 ####[address] [place] [address] MCV (RBC) [Entitic vol] 93.6 fL Normal 80.0-100.0 [facility] Comment on above: Performed By: #### 1 8849414, 5626124, 19042511, 2752425, 3988686, 22600820 ####[facility] [address] [place] [address] Platelet mean volume (Bld) [Entitic vol] 8.5 fL Normal 6.4-10.8 [facility] Comment on above: Performed By: #### 1 0793195, 7369826, 37568483, 1365212, 8089709, 03719520 ####[facility] [address] [place] [address] Platelets (Bld) [#/Vol] 170.0 E9/L Normal 150.0-500.0 [facility] Comment on above: Performed By: #### 1 0954731, 4936958, 67692417, 3105052, 7964199, 96248846 ####[address] [address] RBC (Bld) [#/Vol] 3.3 E12/L Low 4.3-5.9 [facility] Comment on above: Performed By: #### 1 9786159, 4607065, 88616210, 8450330, 5116214, 76294515 ####[facility] [address] [place] [address] WBC corrected for nucl RBC Auto (Bld) [#/Vol] 3.7 E9/L Low 4.0-11.0 [facility] Comment on above: Performed By: #### 1 6788121, 3370906, 80229655, 2083532, 6503348, 25269639 ####[facility] [address] [place] [address] CHEMISTRYOrdered By: SYSTEM SYSTEM on 04-04-2023 Anion gap [Moles/Vol] 10 mmol/L Normal 6 - 16 mEq/L F [facility] Remisol Calcium [Mass/Vol] 9.2 mg/dL Normal 8.9 - 11. 1 mg/dL [facility] Remisol Chloride [Moles/Vol] 102 mmol/L Normal 101 - 1 11 mmol/L [facility] Remisol CO2 [Moles/Vol] 28 mmol/L Normal 21 - 31 mmol/L [facility] Remisol Creatinine [Mass/Vol] 0.5 mg/dL Normal 0.5 - 1.3 mg/dL FT Remisol GFR/1.73 sq M.predicted among non-blacks MDRD (S/P/Bld) [Vol rate/Area] 106 mL/min/1.73 m2 Normal >=59mL/min/[address] [facility] Chem S Glucose [Mass/Vol] 171 mg/dL Normal [...] for Treatmenton 03-11 Consent for Treatment [id number]#1.00CD: 127 Normal [facility] Consent for Treatment [id number]#[id number]: 127 Normal [facility] HEMATOLOGYOrdered By: Damian Peterson on 04-04-2023 Anisocytosis Ql (Bld) Present (04/04/23 12:24 PM) Normal [facility] HemeManSS Erythrocyte distribution width (RBC) [Ratio] 22.1 % High 10.9 - 14.2 % [facility]eAutoSS Hematocrit (Bld) [Volume fraction] 31.2 % Low 37.7 - 49.0 % [facility] Hemoglobin (Bld) [Mass/Vol] 10.1 g/dL Low 13.5 - 17.5 gm/dL [facility]eAutoSS Hypochromia Auto Ql (Bld) Present (04/04/23 12:24 PM) Normal [facility] HemeManSS MCH (RBC) [Entitic mass] 30.3 pg Normal 27.0 - 34.0 pg FT [facility]eAutoSS MCHC (RBC) [Mass/Vol] 32.4 g/dL Normal 31.4 - 36.0 gm/dL [facility]eAutoSS MCV (RBC) [Entitic vol] 93.6 fL Normal 80.0 - 100.0 fL [facility]eAutoSS Morphology Jah (Bld) [Interp] See Morphology (04/04/23 12:24 PM) Normal [facility]eManSS Platelet mean volume (Bld) [Entitic vol] 8.5 fL Normal 6.4 - 10.8 fL [facility]eAutoSS Platelets (Bld) [#/Vol] 170.0 E9/L Normal 150. 0 - 500.0 E9/L [facility]eAutoSS Polychromasia LM [...] 3.7 E9/L Low 4.0 - 11.0 E9/L [facility] HemeAutoSS HEMATOLOGYOrdered By: SYSTEM SYSTEM on 04-04-2023 [...] 13.1 % Normal 4.0 - 14.0 % [facility] HemeAutoSS Monocytes/Leukocytes Auto (Bld) [Pure # fraction] 0.5 E9/L Normal 0.2 - 1.0 E9/L [facility] HemeAutoSS Neutrophils/100 WBC (Bld) 72.7 % Normal 36.0 - 75.0 % [facility] HemeAutoSS Neutrophils/Leukocytes Auto (Bld) [Pure # fraction] 2.7 E9/L Normal 2.0 - 7.5 E9/L [facility] HemeAutoSS Heart and Vascular Office/Cl inic Noteon 04-04-2023 Heart and Vascular Office/Clinic Note Normal [facility] Comment on above: Result Comment: Elec tronically Signed By: Vickey WISE, Erwin FOtilia\.br\Date and Time Signed: 04/04/23 11:48 EDT Morphon 04-04-2023 Anisocytosis Ql (Bld) Present Normal [facility] Comment on above: Order Comment: Order Added by Discern Expert. Performed By: #### [id number] ####[facility] [id number] [place] [address] Hypochromia Auto Ql (Bld) Present Normal [facility] Comment on above: Order Comment: Order Added by Discern Expert. Performed By: #### 1 [id number] ####[facility] [id number] [place] [address] Morphology Jah (Bld) [Interp] See Morphology Normal [facility] Comment on above: Order Comment: Order Added by Discern Expert. Performed By: #### 1 [id number], [id number], [id number], 6947508, 3426790, [id number] ####[facility] [address] [place] [address] Polychromasia LM Ql (Bld) Present Normal [facility] Comment on above: Order Comment: Order Added by Discern Expert. Performed By: #### 1 [id number], [id number], [id number], 3933581, 5034818, [id number] ####[facility] [address] [place] [address] Rouleaux LM Ql (Bld) Present Normal Fish er [facility] Comment on above: Order Comment: Order Added by Discern Expert. Performed By: #### 1 [id number], 4555634, [id number], 9438319, 7034687, 89074334 ####[facility] [address] [place] [address] Schistocytes LM Ql (Bld) Present Normal [facility] Comment on above: Order Comment: Order Added by Discern Expert. Performed By: #### 1 [id number], 2810689, 03850087, 7904574, 2479401, [id number] ####[facility] [address] [place] [address] Spherocytes LM Ql (Bld) Present Normal [facility] Comment on above: Order Comment: Order Added by Discern Expert. Performed By: #### 1 [id number], 7585140, 70646968, 8515766, 8066554, 06395270 ####[facility] [address] [place] [address] Outside Progress Noteon 03-11 Outside Progress Note [id number]#1.00CD :127 Normal [facility] eGFRon 04-04-2023 GFR/1.73 sq M.predicted among non-blacks MDRD (S/P/Bld) [Vol rate/Area] 106 mL/min/1.73 m2 Normal >=59 [facility] Comment on above: Order Comment: Order added by Discern Expert. 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 Kidney failure is indicated at less than 15 mL/min/1.73m2. Performed By: #### 1 5158434, 4590894, 14460206, 0620287, 0084760, [id number] ####[facility] [address] [place] [address] Coding Queryon 03-17-2023 Coding Query [facility] Consent for Treatmenton Consent for Treatment [id number]#1.00CD: 127 [facility] Heart and Vascular Office/Cl inic Noteon 03-17-2023 Heart and Vascular Office/Clinic Note Normal [facility] Comment on above: Result Comment: Elec tronically Signed By: Vickey [place], Erwin Evans\.br\Date and Time Signed: 03/17/23 14:05 EDT Progress Note-Physicianon Progress Note-Physician [id number]#1.00CD:1 27 Normal [facility] Coding Queryon 03-15-2023 Coding Query [facility] Progress Note-Physicianon Progress Note-Physician Normal [facility] Comment on above: Result Comment: Elec tronically Signed By: Katheryn W[place], Aiden\.br\Date and Time Signed: 03/15/23 20:46 EDT C Urineon 03-12-2023 Bacteria identified Cx Nom (U) [facility] Comment on above: Performed By: #### 1 [id number], [id number] ####[facility] [address] [place] [address] IntraOperative Documentson 0 03-11-2023 IntraOperative Documents [id number]#1.00CD :127 Normal [facility] .Interpretation:on 3 HCV Ab IA Ql Comment Invalid Interpretation Code [facility] Comment on above: Result Comment: Not infected with HCV unless early or acute infection issuspected (which may be delayed in an immunocompromisedindividual), or other evidence exists to indicate HCV infection.Performed at: [facility] [id number] [place], [place] [id number] PhD Azar Luevano Performed By: #### 2 [id number], [id number], [id number], [id number] ####[facility] [address] [place] [address] CHEMISTRYOrdered By: Lab ROP User on 03-10-2023 Glucose [Mass/Vol] 140 mg/dL High 55 - 99 mg/dL [facility] POC Subsection Comment on above: Result Comment: Nuno MARIN POC Device SN [id number] Invalid Interpretation Code FT POC Subsection POC User ID [id number] Invalid Interpretation Code FT POC Subsection POC Username ADRIAN JOSE LUIS Invalid Interpretation Code [facility] POC Subsection Glucose [Mass/Vol] 116 mg/dL High 55 - 99 mg/dL [facility] POC Subsection Comment on above: Result Comment: Nuno MARIN POC Device SN [id number] Invalid Interpretation Code FT POC Subsection POC User ID [id number] Invalid Interpretation Code [facility] POC Subsection POC Username ADRIAN JOSE LUIS Invalid Interpretation Code [facility] POC Subsection CHEMISTRYOrdered By: SYSTEM SYSTEM on 03-10-2023 Anion gap [Moles/Vol] 9 mmol/L Normal 6 - 16 mEq/L [facility] Remisol Chloride [Moles/Vol] 102 mmol/L Normal 101 - 1 11 mmol/L [facility] Remisol CO2 [Moles/Vol] 29 mmol/L Normal 21 - 31 mmol/L [facility] Remisol Magnesium [Mass/Vol] 1.8 mg/dL Normal 1.3 - 2 .4 mg/dL [facility] Remisol Potassium [Moles/Vol] 3.5 mmol/L Normal 3.5 - 5.3 mmol/L [facility] Remisol Sodium [Moles/Vol] 136 mmol/L Normal 135 - 145 mmol/L [facility] Remisol Capillary Glucose POCon 06-0 Glucose [Mass/Vol] 140 mg/dL High 55-99 [facility] Comment on above: Result Comment: Nuno MARIN Performed By: #### 2 [id number] ####[facility] [address] [place] [address] Glucose [Mass/Vol] 116 mg/dL High 55-99 [facility] Comment on above: Result Comment: Nuno MARIN Performed By: #### 2 [id number] ####[facility] [address] [place] [address] Glucose [Mass/Vol] 83 mg/dL Normal 55-99 [facility] Comment on above: Result Comment: Nuno aranda RN/ Performed By: #### 2 [id number] ####[facility] [address] [place] [address] Consent for Blood Transfusio non 03-10-2023 Consent for Blood Transfusion [id number]#1.00CD :127 Normal [facility] Discharge Instructionson Discharge Instructions [id number]#1.00CD :127 Normal [facility] Discharge Note-Nursingon Discharge Note-Nursing Normal [facility] HCV Antibody RFX to Quant PC Chia 03-10-2023 HCV IgG IA Ql Non-Reactive Invalid Interpretation Code Non Reactive [facility] Comment on above: Result Comment: Perf ormed at: [facility] [facility] [place], [place] [id number] PhD Azar Luevano Performed By: #### 2 [id number], [id number], [id number], [id number] ####[facility] [address] [place] [address] Hep Bs Agon 03-10-2023 HBV surface Ag IA Ql Negative Invalid Interpretation Code Negative [facility] Comment on above: Result Comment: Perf ormed at: [facility] [place], [place] [id number] PhD Azar Luevano Performed By: #### 2 [id number], [id number], [id number], 3370352 ####[facility] [address] [place] [address] Inpatient Clinical Summaryon 03-10-2023 Inpatient Clinical Summary Normal [facility] Inpatient Patient Summaryon 03-10-2023 Inpatient Patient Summary Normal [facility] Interdisciplinary Note - Michelet e Manageron 03-10-2023 Interdisciplinary Note - Recreation Therapy Aide Normal [facility] Comment on above: Result Comment: Elec tronically Signed By: Sonia Morejon\.br\Date and Time Signed: 03/10/23 14:25 EDT Lyteson 03-10-2023 Anion gap [Moles/Vol] 9 mmol/L Normal 6-16 [facility] Comment on above: Order Comment: line packet sent up to floor...[facility] 03/10/2023 04:24:28 EDT Performed By: #### 2 688373, 7118552 ####[facility] [address] [place] [address] Chloride [Moles/Vol] 102 mmol/L Normal 101-111 [facility] Comment on above: Order Comment: line packet sent up to floor...[facility] 03/10/2023 04:24:28 EDT Performed By: #### 2 414925, 3774032 ####[facility] [address] [place] [address] CO2 [Moles/Vol] 29 mmol/L Normal 21-31 [facility] Comment on above: Order Comment: line packet sent up to floor...[facility] 03/10/2023 04:24:28 EDT Performed By: #### 2 868710, 3592516 ####[facility] [address] [place] [address] Potassium [Moles/Vol] 3.5 mmol/L Normal 3.5-5.3 [facility] Comment on above: Order Comment: line packet sent up to floor...[facility] 03/10/2023 04:24:28 EDT Performed By: #### 2 828859, 9368819 ####[facility] [address] [place] [address] Sodium [Moles/Vol] 136 mmol/L Normal 135-145 [facility] Comment on above: Order Comment: line packet sent up to floor...[facility] 03/10/2023 04:24:28 EDT Performed By: #### 2 646247, 8221743 ####[facility] [address] [place] [address] Magnesiumon 03-10-2023 Magnesium [Mass/Vol] 1.8 mg/dL Normal 1.3-2.4 [facility] Comment on above: Performed By: #### 2 249174, 1609777 ####[facility] [address] [place] [address] Progress Note-Nurseon 2022 Progress Note-Nurse Late Entry Pt's spouse took home all belongings except for the wound vac in preparation for discharge on 03/10 @ 1253. Normal [facility] Transfer Documentson 023 Transfer Documents [id number]#1.00CD :127 Normal [facility] UA With Cult Reflexon 2022 Bacteria LM Ql (Urine sed) TRACE Normal Trace [facility] Comment on above: Order Comment: Urina ry Catheter Insertion triggered Urinalysis With Culture Reflex order by discern. Performed By: #### 1 5426419, 3823943 ####[place] [address] Bilirubin Ql (U) Negative Normal Negative [facility] Comment on above: Order Comment: Urina ry Catheter Insertion triggered Urinalysis With Culture Reflex order by discern. Performed By: #### 1 7760964, 9075712 ####[place] [address] Clarity (U) CLEAR Normal Clear [facility] Comment on above: Order Comment: Urina ry Catheter Insertion triggered Urinalysis With Culture Reflex order by discern. Performed By: #### 1 8869079, 6291941 ####[place] [id number] Color (U) YELLOW Normal Yellow [facility] Comment on above: Order Comment: Urina ry Catheter Insertion triggered Urinalysis With Culture Reflex order by discern. Performed By: #### 1 6216310, 4902951 ####[place] [address] Epithelial cells.squamous LM.HPF (Urine sed) [#/Area] 0-2 Normal 0-2 [facility] Comment on above: Order Comment: Urina ry Catheter Insertion triggered Urinalysis With Culture Reflex order by discern. Performed By: #### 1 6995006, 5755095 ####[place] [address] Glucose Test strip (U) [Mass/Vol] Negative Normal Negative [facility] Comment on above: Order Comment: Urina ry Catheter Insertion triggered Urinalysis With Culture Reflex order by discern. Performed By: #### 1 0940289, 5958602 ####[place] [address] Hemoglobin Ql (U) 1+ Abnormal Negative [facility] Comment on above: Order Comment: Urina ry Catheter Insertion triggered Urinalysis With Culture Reflex order by discern. Performed By: #### 1 4515608, 5893941 ####[address] [address] Ketones (U) [Mass/Vol] Negative Normal Negative [facility] Comment on above: Order Comment: Urina ry Catheter Insertion triggered Urinalysis With Culture Reflex order by discern. Performed By: #### 1 0617452, 0095723 ####[place] [address] [place].plasma/[place]. RBC (Bld) [Mass ratio] 4-20 Normal 0-3 [facility] Comment on above: Order Comment: Urina ry Catheter Insertion triggered Urinalysis With Culture Reflex order by discern. Performed By: #### 1 2488128, 6395381 ####[address] [address] Mucus Ql (Urine sed) TRACE Normal [facility] Comment on above: Order Comment: Urina ry Catheter Insertion triggered Urinalysis With Culture Reflex order by discern. Performed By: #### 1 3357092, 6587212 ####[address] [address] Nitrite Ql (U) Negative Normal Negative [facility] Comment on above: Order Comment: Urina ry Catheter Insertion triggered Urinalysis With Culture Reflex order by discern. Performed By: #### 1 2972178, 3419692 ####[place] [address] pH (U) 8.5 [pH] Invalid Interpretation Code 5.0-9.0 [facility] Comment on above: Order Comment: Urina ry Catheter Insertion triggered Urinalysis With Culture Reflex order by discern. Performed By: #### 1 5651330, 7911594 ####[place] [address] Protein (U) [Mass/Vol] TRACE Abnormal Negative [facility] Comment on above: Order Comment: Urina ry Catheter Insertion triggered Urinalysis With Culture Reflex order by discern. Performed By: #### 1 7040214, 2653565 ####[place] [address] Specific gravity (U) [Rel density] 1.015 Invalid Interpretation Code 1.005-1.030 [facility] Comment on above: Order Comment: Urina ry Catheter Insertion triggered Urinalysis With Culture Reflex order by discern. Performed By: #### 1 1589088, 6680345 ####[place] [address] Type of Urine collection method Boles Normal [facility] Comment on above: Order Comment: Urina ry Catheter Insertion triggered Urinalysis With Culture Reflex order by discern. Performed By: #### 1 4393802, 7282519 ####[place] [address] Urobilinogen Qn (U) 0.2 {Mercedes'U}/dL Normal 0.0-1.0 [facility] Comment on above: Order Comment: Urina ry Catheter Insertion triggered Urinalysis With Culture Reflex order by discern. Performed By: #### 1 8530551, 8456687 ####[place] [address] WBC Auto Ql (U) 1+ Abnormal Negative [facility] Comment on above: Order Comment: Urina ry Catheter Insertion triggered Urinalysis With Culture Reflex order by discern. Performed By: #### 1 3720428, 5359223 ####[facility] [address] [place] [address] WBC LM.HPF (Urine sed) [#/Area] 6-15 Abnormal 0-5 [facility] Comment on above: Order Comment: Urina ry Catheter Insertion triggered Urinalysis With Culture Reflex order by discern. Performed By: #### 1 7763251, 3368246 ####[facility] [address] [place] [address] URINALYSISOrdered By: Fabi Massey on 03-10-2023 Bacteria [...] PM) Normal Negative [facility] UA Auto SS [place].plasma/[place]. RBC (Bld) [Mass ratio] 4-20 /HPF Normal 0-3/HPF [...] PM) Invalid Interpretation Code 1.005 - 1.030 [facility] UA Auto SS UA Spec Desc Boles (03/10/23 12:33 PM) Normal [facility] UA Auto SS Urobilinogen Qn (U) 0.0159128 {Mercedes'U}/dL Normal 0.0 - 1.0 EU/dL [facility] UA Auto SS WBC Auto Ql (U) 1+ *ABN* (03/10/23 12:33 PM) Invalid Interpretation Code Negative [facility] UA Auto SS WBC LM.HPF (Urine sed) [#/Area] 6-15 /HPF Invalid Interpretation Code 0-5/HPF [facility] UA Auto SS CHEMISTRYOrdered By: Lab ROP User on 03-09-2023 Glucose [Mass/Vol] 83 mg/dL Normal 55 - 99 mg/dL [facility] POC Subsection Comment on above: Result Comment: Nuno MARIN POC Device SN [id number] Invalid Interpretation Code [facility] POC Subsection POC User ID [id number] Invalid Interpretation Code [facility] POC Subsection POC Username JULIO CÉSAR CHAVIS Invalid Interpretation Code [facility] POC Subsection Capillary Glucose POCon 02-09 Glucose [Mass/Vol] 98 mg/dL Normal 55-99 [facility] Comment on above: Result Comment: Nuno MARIN Performed By: #### 2 [id number] ####[facility] [address] [place] [address] Glucose [Mass/Vol] 219 mg/dL High 55-99 [facility] Comment on above: Result Comment: Nuno MARIN Performed By: #### 2 [id number] ####[facility] [address] [place] [address] Glucose [Mass/Vol] 130 mg/dL High 55-99 [facility] Comment on above: Result Comment: Nuno MARIN Performed By: #### 2 [id number] ####[facility] [address] [place] [address] Interdisciplinary Note - Michelet e Manageron 03-09-2023 Interdisciplinary Note - Recreation Therapy Aide Normal [facility] Comment on above: Result Comment: Elec tronically Signed By: Sonia Morejon\.br\Date and Time Signed: 03/09/23 12:18 EDT Progress Note-Physicianon Progress Note-Physician Normal [facility] Comment on above: Result Comment: Elec tronically Signed By: Anabela DONIS\.br\Date and Time Signed: 03/09/23 16:26 EDT\.br\Electronically Co-Signed By: Vazquez [place], [place]\.br\Date and Time Co-Signed: 03/09/23 17:57 EDT UA With Cult Reflexon 2022 Type of Urine collection method Clean Catch Normal [facility] Comment on above: Order Comment: Urina ry Catheter Insertion triggered Urinalysis With Culture Reflex order by discern. Performed By: #### 1 [id number] ####[facility] [address] [place] [address] Bacteria LM Ql (Urine sed) TRACE Normal Trace [facility] Comment on above: Order Comment: Urina ry Catheter Insertion triggered Urinalysis With Culture Reflex order by discern. Performed By: #### 1 [id number] ####[facility] [address] [place] [address] Bilirubin Ql (U) Negative Normal Negative [facility] Comment on above: Order Comment: Urina ry Catheter Insertion triggered Urinalysis With Culture Reflex order by discern. Performed By: #### 1 [id number] ####[facility] [address] [place] [address] Clarity (U) CLEAR Normal Clear [facility] Comment on above: Order Comment: Urina ry Catheter Insertion triggered Urinalysis With Culture Reflex order by discern. Performed By: #### 1 [id number] ####[facility] [address] [place] [address] Color (U) YELLOW Normal Yellow [facility] Comment on above: Order Comment: Urina ry Catheter Insertion triggered Urinalysis With Culture Reflex order by discern. Performed By: #### 1 1744097 ####[facility] [address] [place] [address] Epithelial cells.squamous LM.HPF (Urine sed) [#/Area] 0-2 Normal 0-2 [facility] Comment on above: Order Comment: Urina ry Catheter Insertion triggered Urinalysis With Culture Reflex order by discern. Performed By: #### 1 [id number] ####[facility] [address] [place] [address] Glucose Test strip (U) [Mass/Vol] Negative Normal Negative [facility] Comment on above: Order Comment: Urina ry Catheter Insertion triggered Urinalysis With Culture Reflex order by discern. Performed By: #### 1 [id number] ####[facility] [address] [place] [address] Hemoglobin Ql (U) 1+ Abnormal Negative [facility] Comment on above: Order Comment: Urina ry Catheter Insertion triggered Urinalysis With Culture Reflex order by discern. Performed By: #### 1 [id number] ####[facility] [address] [place] [address] Ketones (U) [Mass/Vol] Negative Normal Negative [facility] Comment on above: Order Comment: Urina ry Catheter Insertion triggered Urinalysis With Culture Reflex order by discern. Performed By: #### 1 [id number] ####[facility] [address] [place] [address] [place].plasma/[place]. RBC (Bld) [Mass ratio] 0-3 Normal 0-3 [facility] Comment on above: Order Comment: Urina ry Catheter Insertion triggered Urinalysis With Culture Reflex order by discern. Performed By: #### 1 [id number] ####[facility] [address] [place] [address] Nitrite Ql (U) Negative Normal Negative [facility] Comment on above: Order Comment: Urina ry Catheter Insertion triggered Urinalysis With Culture Reflex order by discern. Performed By: #### 1 [id number] ####[facility] [address] [place] [address] pH (U) 7.5 [pH] Invalid Interpretation Code 5.0-9.0 [facility] Comment on above: Order Comment: Urina ry Catheter Insertion triggered Urinalysis With Culture Reflex order by discern. Performed By: #### 1 [id number] ####[facility] [address] [place] [address] Protein (U) [Mass/Vol] Negative Normal Negative [facility] Comment on above: Order Comment: Urina ry Catheter Insertion triggered Urinalysis With Culture Reflex order by discern. Performed By: #### 1 [id number] ####[address] [address] Specific gravity (U) [Rel density] 1.010 Invalid Interpretation Code 1.005-1.030 [facility] Comment on above: Order Comment: Urina ry Catheter Insertion triggered Urinalysis With Culture Reflex order by discern. Performed By: #### 1 3763956 ####[address] [address] Urobilinogen Qn (U) 0.2 {Mercedes'U}/dL Normal 0.0-1.0 [facility] Comment on above: Order Comment: Urina ry Catheter Insertion triggered Urinalysis With Culture Reflex order by discern. Performed By: #### 1 [id number] ####[address] [address] WBC Auto Ql (U) Negative Normal Negative [facility] Comment on above: Order Comment: Urina ry Catheter Insertion triggered Urinalysis With Culture Reflex order by discern. Performed By: #### 1 0142575 ####[address] [address] WBC LM.HPF (Urine sed) [#/Area] 0-5 Normal 0-5 [facility] Comment on above: Order Comment: Urina ry Catheter Insertion triggered Urinalysis With Culture Reflex order by discern. Performed By: #### 1 [id number] ####[address] [address] URINALYSISOrdered By: Tommy Gerardo on 03-09-2023 Bacteria LM Ql (Urine sed) Trace /HPF Normal Trace/HPF [facility] UA Auto SS Bilirubin Ql (U) Negative (03/09/23 6:50 PM) Normal Negative [facility] UA Auto SS Clarity (U) Clear (03/09/23 [...] PM) Normal Negative [facility] UA Auto SS [place].plasma/[place]. RBC (Bld) [Mass ratio] 0-3 /HPF Normal 0-3/HPF [facility] UA Auto SS Nitrite Ql (U) Negative (03/09/23 6:50 PM) Normal Negative [facility] UA Auto SS pH (U) 7.5 *NA* (03/09/23 6:50 PM) Invalid Interpretation Code 5.0 - 9.0 [facility] UA Auto SS Protein (U) [Mass/Vol] Negative (03/09/23 6:50 PM) Normal Negative [facility] UA Auto SS Specific gravity (U) [Rel density] 1.010 *NA* (03/09/23 6:50 PM) Invalid Interpretation Code 1.005 - 1.030 [facility] UA Auto SS UA Spec Desc Clean Catch (03/09/23 6:50 PM) Normal [facility] UA Auto SS Urobilinogen Qn (U) 0.9276875 {Mercedes'U}/dL Normal 0.0 - 1.0 EU/dL [facility] UA Auto SS WBC Auto Ql (U) Negative (03/09/23 6:50 PM) Normal Negative [facility] UA Auto SS WBC LM.HPF (Urine sed) [#/Area] 0-5 /HPF Normal 0-5/HPF [facility] UA Auto SS CHEMISTRYOrdered By: SYSTEM SYSTEM on 03-08-2023 Anion gap [Moles/Vol] 10 mmol/L Normal 6 - 16 mEq/L [facility] Remisol Chloride [Moles/Vol] 103 mmol/L Normal 101 - 1 11 mmol/L [facility] Remisol CO2 [Moles/Vol] 27 mmol/L Normal 21 - 31 mmol/L [facility] Remisol Potassium [Moles/Vol] 3.6 mmol/L Normal 3.5 - 5.3 mmol/L [facility] Remisol Sodium [Moles/Vol] 136 mmol/L Normal 135 - 145 mmol/L [facility] [facility] Remisol Capillary Glucose POCon 053 Glucose [Mass/Vol] 154 mg/dL High 5599 [facility] Comment on above: Result Comment: Nuno MARIN Performed By: #### 2 [id number] ####[facility] [address] [place] [address] Glucose [Mass/Vol] 108 mg/dL [address] Comment on above: Result Comment: Nuno MARIN Performed By: #### 2 [id number] ####[facility] [address]rmf[address] [place] [address] Glucose [Mass/Vol] 153 mg/dL [facility] Comment on above: Result Comment: Nuno MARIN Performed By: #### 2 [id number] ####[facility] [address] [place] [address] Glucose [Mass/Vol] 144 mg/dL [address] Comment on above: Result Comment: Nuno MARIN Performed By: #### 2 [id number] ####[facility] [address]px[address] [place] [address] HIV-1/2 Ag[facility] 2022 HIV 1+2 Ab and HIV1 p24 Ag IA.rapid Nom (S/P/Bld) Negative Normal Negative [facility] Comment on above: Performed By: #### 2 [id number], [id number], [id number], 7883184 ####[facility] [address] [place] [address] HIV 1+2 Ab+HIV1 p24 Ag IA Ql Non-Reactive Normal Non-Reactive [facility] Comment on above: Performed By: #### 2 [id number], [id number], [id number], 4335650 ####[facility] [address] [place] [address] HIV Combo Internal Control Line Reactive Normal Reactive [facility] Comment on above: Performed By: #### 2 [id number], [id number], 459655641, 9092724 ####[facility] [address] [place] [address] HIV-1/2 Ag/Ab Combo Negative for HIV-1 and/or HIV-2 antibodies and HIV-1 p24 antigen. Normal Negative [facility] Interdisciplinary Note - Michelet e Manageron 03-08-2023 Interdisciplinary Note - Recreation Therapy Aide Normal [facility] Comment on above: Result Comment: Elec tronically Signed By: Yane Escobar\Date and Time Signed: 03/08/23 12:57 EDT Interdisciplinary Note - Alf singon 03-08-2023 Interdisciplinary Note - Nursing Normal [facility] Lyteson 03-08-2023 Anion gap [Moles/Vol] 10 mmol/L Normal 6-16 [facility] Comment on above: Order Comment: packe t given to jesi hughes002 03/08/2023 09:35:59 EDT Performed By: #### 2 [id number] ####[facility] [address]ek[address] [place] [address] Chloride [Moles/Vol] 103 mmol/L Normal 101-111 [facility] Comment on above: Order Comment: packe t given to jesi hughes002 03/08/2023 09:35:59 EDT Performed By: #### 2 883156 ####[facility] [address] [place] [address] CO2 [Moles/Vol] 27 mmol/L Normal 21-31 [facility] Comment on above: Order Comment: packe t given to jesi Casarez [id number] 03/08/2023 09:35:59 EDT Performed By: #### 2 716150 ####[facility] [address]hw[address] [place] [address] Potassium [Moles/Vol] 3.6 mmol/L Normal 3.5-5.3 [facility] Comment on above: Order Comment: packe t given to jesi Leida [id number] 03/08/2023 09:35:59 EDT Performed By: #### 2 292028 ####[facility] [address]xsqep[address] [place] [address] Sodium [Moles/Vol] 136 mmol/L Normal 135-145 [facility] Comment on above: Order Comment: packe t given to jesi Leida [id number] 03/08/2023 09:35:59 EDT Performed By: #### 2 293159 ####[facility] [address] [place] [address] Physician Orderon 03-08-2023 Physician Order [id number]: 127 Normal [facility] Progress Note-Physicianon Progress Note-Physician Normal [facility] Comment on above: Result Comment: Elec tronically Signed By: Anabela DONIS\.br\Date and Time Signed: 03/08/23 15:57 EDT\.br\Electronically Co-Signed By: West Shukla MD\.br\Date and Time Co-Signed: 03/08/23 16:14 EDT Progress Note-Physician Normal [facility] Comment on above: Result Comment: Elec tronically Signed By: Chong Coe M.D\.br\Date and Time Signed: 03/08/23 12:34 EDT Progress Note-Physician Normal [facility] Comment on above: Result Comment: Elec tronically Signed By: Lynda Carrero RN\.br\Date and Time Signed: 03/08/23 09:30 EDT\.br\Electronically Co-Signed By: Benji Russell DO\.br\Date and Time Co-Signed: 03/08/23 10:10 EDT Progress Note-Physician Normal [facility] Comment on above: Result Comment: Elec tronically Signed By: MD Siri, Ahmad F\.br\Date and Time Signed: 03/08/23 08:47 EDT Progress Note-Physician Normal [facility] Comment on above: Result Comment: Elec tronically Signed By: MD Horner Ahmad F\.br\Date and Time Signed: 03/08/23 08:46 EDT Auto Diffon 03-07-2023 Basophils/100 WBC (Bld) 0.3 % Normal 0.0-2.0 [facility] Comment on above: Order Comment: Order Added by Discern Expert. Performed By: #### 2 275611, 6872926, 6877339, 38405460 ####[facility] [address] [place] [address] Basophils/Leukocytes Auto (Bld) [Pure # fraction] 0.0 E9/L Normal 0.0-0.2 [facility] Comment on above: Order Comment: Order Added by Discern Expert. Performed By: #### 2 251616, 4079927, 1750505, 86460346 ####[facility] [address] [place] [address] Eosinophils/100 WBC (Bld) 1.1 % Normal 0.0-8.0 [facility] Comment on above: Order Comment: Order Added by Discern Expert. Performed By: #### 2 400524, 1923318, 3403103, 04663688 ####[facility] [address] [place] [address] Eosinophils/Leukocytes Auto (Bld) [Pure # fraction] 0.1 E9/L Normal 0.0-0.5 [facility] Comment on above: Order Comment: Order Added by Discern Expert. Performed By: #### 2 585170, 7217546, 4302938, 28267705 ####[facility] [address] [place] [address] Lymphocytes/100 WBC (Bld) 5.5 % Low 14.0-50.0 [facility] Comment on above: Order Comment: Order Added by Discern Expert. Performed By: #### 2 462282, 9822298, 5000127, 08606524 ####[address] [place] [address] Lymphocytes/Leukocytes Auto (Bld) [Pure # fraction] 0.3 E9/L Low 1.0-4.0 [facility] Comment on above: Order Comment: Order Added by Discern Expert. Performed By: #### 2 396214, 7714458, 5918320, 74417159 ####[address] [place] [address] Monocytes/100 WBC (Bld) 10.4 % Normal 4.0-14.0 [facility] Comment on above: Order Comment: Order Added by Discern Expert. Performed By: #### 2 285651, 3627378, 7232745, 26863500 ####[address] [place] [address] Monocytes/Leukocytes Auto (Bld) [Pure # fraction] 0.5 E9/L Normal 0.2-1.0 [facility] Comment on above: Order Comment: Order Added by Discern Expert. Performed By: #### 2 179784, 1972920, 0364380, 80602921 ####[address] [address] Neutrophils/100 WBC (Bld) 82.7 % High 36.0-75.0 [facility] Comment on above: Order Comment: Order Added by Discern Expert. Performed By: #### 2 981071, 5140714, 2922010, 47343904 ####[address] [place] [address] Neutrophils/Leukocytes Auto (Bld) [Pure # fraction] 4.1 E9/L Normal 2.0-7.5 [facility] Comment on above: Order Comment: Order Added by Discern Expert. Performed By: #### 2 942719, 6501960, 5907113, 26212261 ####[address] [place] [address] BMPon 03-07-2023 Anion gap [Moles/Vol] 8 mmol/L Normal 6-16 [facility] Comment on above: Performed By: #### 2 958555, 2897616, 5528610, 68013073 ####[facility] [address] [place] [address] Calcium [Mass/Vol] 8.8 mg/dL Low 8.9-11.1 [facility] Comment on above: Performed By: #### 2 615775, 4645478, 4498435, 41824298 ####[facility] [address] [place] [address] Chloride [Moles/Vol] 107 mmol/L Normal 101-111 [facility] Comment on above: Performed By: #### 2 304401, 7989480, 7208050, 21113030 ####[facility] [address] [place] [address] CO2 [Moles/Vol] 28 mmol/L Normal 21-31 [facility] Comment on above: Performed By: #### 2 403297, 1462910, 4970767, 10974639 ####[facility] [address] [place] [address] Creatinine [Mass/Vol] 0.6 mg/dL Normal 0.5-1.3 [facility] Comment on above: Performed By: #### 2 936877, 5096061, 3449896, 62474347 ####[facility] [address] [place] [address] Glucose [Mass/Vol] 136 mg/dL Normal 55-199 [facility] Comment on above: Result Comment: If t his glucose result represents a fasting glucose, interpretation should refer to the following reference range: 55-99 mg/dL Performed By: #### 2 731954, 6930990, 3385818, 70608413 ####[facility] [address] [place] [address] Potassium [Moles/Vol] 3.1 mmol/L Low 3.5-5.3 [facility] Comment on above: Performed By: #### 2 638660, 0621387, 1378523, 49385646 ####[facility] [address] [place] [address] Sodium [Moles/Vol] 140 mmol/L Normal 135-145 [facility] Comment on above: Performed By: #### 2 436630, 1473284, 3315889, 55963456 ####[facility] [address] [place] [address] Urea nitrogen [Mass/Vol] 19 mg/dL Normal 5-21 [facility] Comment on above: Performed By: #### 2 894345, 1494740, 3864887, 86564557 ####[facility] [address] [place] [address] Urea nitrogen/Creatinine [Mass ratio] 32 No Units High 10-20 [facility] Comment on above: Performed By: #### 2 807206, 0373963, 8089913, 23385936 ####[facility] [address] [place] [address] CBC w/ Auto Diffon Erythrocyte distribution width (RBC) [Ratio] 19.2 % High 10.9-14.2 [facility] Comment on above: Performed By: #### 2 873023, 0587693, 0936378, 02356740 ####[facility] [address] [place] [address] Hematocrit (Bld) [Volume fraction] 27.3 % Low 37.7-49.0 [facility] Comment on above: Performed By: #### 2 165161, 0088464, 0359793, 54873468 ####[facility] [address] [place] [address] Hemoglobin (Bld) [Mass/Vol] 8.8 g/dL Low 13.5-17.5 [facility] Comment on above: Performed By: #### 2 173647, 8535087, 5457725, 15566771 ####[facility] [address] [place] [address] MCH (RBC) [Entitic mass] 27.4 pg Normal 27.0-34.0 [facility] Comment on above: Performed By: #### 2 883724, 1485665, 5453798, 62086032 ####[facility] [address] [place] [address] MCHC (RBC) [Mass/Vol] 32.2 g/dL Normal 31.4-36.0 [facility] Comment on above: Performed By: #### 2 778386, 8887857, 1881608, 79910928 ####[address] [address] MCV (RBC) [Entitic vol] 85.0 fL Normal 80.0-100.0 [facility] Comment on above: Performed By: #### 2 745688, 1562217, 4276108, 32455339 ####[address] Platelet mean volume (Bld) [Entitic vol] 8.4 fL Normal 6.4-10.8 [facility] Comment on above: Performed By: #### 2 109579, 1795854, 4888678, 04678517 ####[address] [address] Platelets (Bld) [#/Vol] 220.0 E9/L Normal 150.0-500.0 [facility] Comment on above: Performed By: #### 2 071540, 5689239, 8513226, 84548238 ####[address] [address] RBC (Bld) [#/Vol] 3.2 E12/L Low 4.3-5.9 [facility] Comment on above: Performed By: #### 2 269413, 6103389, 7599575, 48060429 ####[address] [address] WBC corrected for nucl RBC Auto (Bld) [#/Vol] 5.0 E9/L Normal 4.0-11.0 [facility] Comment on above: Performed By: #### 2 171169, 7629606, 9528015, 97770596 ####[facility] [address] [place] [address] CHEMISTRYOrdered By: SYSTEM SYSTEM on 03-07-2023 Anion gap [Moles/Vol] 8 mmol/L Normal 6 - 16 mEq/L [facility] Remisol Calcium [Mass/Vol] 8.8 mg/dL Low 8.9 - 11. 1 mg/dL [facility] Chloride [Moles/Vol] 107 mmol/L Normal 101 - 1 11 mmol/L [facility] CO2 [Moles/Vol] 28 mmol/L Normal 21 - 31 mmol/L [facility] Creatinine [Mass/Vol] 0.6 mg/dL Normal 0.5 - 1.3 mg/dL [facility] Remisol GFR/1.73 sq M.predicted among non-blacks MDRD (S/P/Bld) [Vol rate/Area] 100 mL/min/1.73 m2 Normal >=59mL/min/[address] [facility] Chem S Glucose [Mass/Vol] 136 mg/dL Normal 55 - 199 mg/dL [facility] Potassium [Moles/Vol] 3.1 mmol/L Low 3.5 - 5.3 mmol/L [facility] Remisol Sodium [Moles/Vol] 140 mmol/L Normal 135 - 145 mmol/L [facility] Remisol Urea nitrogen [Mass/Vol] 19 mg/dL Normal 5 - 21 mg/dL [facility] Remisol Urea nitrogen/Creatinine [Mass ratio] 32 mg/mg High 10 - 20 [facility] Remisol Capillary Glucose POCon 02-08 Glucose [Mass/Vol] 138 mg/dL High 55-99 [facility] Comment on above: Result Comment: Nuno MARIN Performed By: #### 2 [id number] ####[facility] [address] [place] [address] Glucose [Mass/Vol] 91 mg/dL Normal 55-99 [facility] Comment on above: Result Comment: Nuno aranda RN/ Performed By: #### 2 78944495 ####[facility] [address] [place] [address] Glucose [Mass/Vol] 216 mg/dL High 55-99 [facility] Comment on above: Result Comment: Nuno MARIN Performed By: #### 2 89430344 ####[facility] [address] [place] [address] Glucose [Mass/Vol] 133 mg/dL High 55-99 [facility] Comment on above: Result Comment: Nuno MARIN Performed By: #### 2 45229200 ####[facility] [address] [place] [address] HEMATOLOGYOrdered By: [employer] SYSTEM on 03-07-2023 Basophils/100 WBC (Bld) 0.3 [...] HemeAutoSS Platelets (Bld) [#/Vol] 220.0 E9/L Normal 150. 0 - 500.0 E9/L [facility] HemeAutoSS RBC (Bld) [#/Vol] 3.2 E12/L Low 4.3 - 5.9 E12/L [facility] HemeAutoSS WBC corrected for nucl RBC Auto (Bld) [#/Vol] 5.0 E9/L Normal 4.0 - 11.0 E9/L [facility] HemeAutoSS Interdisciplinary Note - Michelet e Manageron 03-07-2023 Interdisciplinary Note - Recreation Therapy Aide Normal [facility] Comment on above: Result Comment: Elec tronically Signed By: Sonia Morejon\.br\Date and Time Signed: 03/07/23 12:44 EDT Operative Reporton 3 Operative Report Normal [facility] Comment on above: Result Comment: Elec tronically Signed By: Vickey WISE, Erwin Evans\.br\Date and Time Signed: 03/07/23 20:21 EDT eGFRon 03-07-2023 GFR/1.73 sq M.predicted among non-blacks MDRD (S/P/Bld) [Vol rate/Area] 100 mL/min/1.73 m2 Normal >=59 [facility] Comment on above: Order Comment: Order added by Discern Expert. 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 Kidney failure is indicated at less than 15 mL/min/1.73m2. Performed By: #### 2 511191, 0303679, 0469263, 07100631 ####[facility] [address] [place] [address] Ammoniaon 03-06-2023 Ammonia (P) [Moles/Vol] 16 mcmol Normal 11-35 [facility] Comment on above: Performed By: #### 2 036152 ####[facility] [address] [place] [address] CHEMISTRYOrdered By: SYSTEM SYSTEM on 03-06-2023 Ammonia (P) [Moles/Vol] 16 umol Normal 11 - [address] [facility] Remisol Capillary Glucose POCon 02-08 Glucose [Mass/Vol] 129 mg/dL High 55-99 [facility] Comment on above: Result Comment: Nuno aranda RN/ Performed By: #### 2 [id number] ####[address] [address] Glucose [Mass/Vol] 181 mg/dL High 55-99 [facility] Comment on above: Performed By: #### 2 [id number] ####[address] [address] Glucose [Mass/Vol] 209 mg/dL High 55-99 [facility] Comment on above: Result Comment: Nuno aranda RN/ Performed By: #### 2 [id number] ####[address] [address] Glucose [Mass/Vol] 136 mg/dL High 55-99 [facility] Comment on above: Result Comment: Nuno MARIN Performed By: #### 2 [id number] ####[address] [place] [address] Interdisciplinary Note - Michelet e Manageron 03-06-2023 Interdisciplinary Note - Recreation Therapy Aide [facility] Comment on above: Result Comment: Elec tronically Signed By: Chong GUARDADO, Leona\.fabio\Date and Time Signed: 03/06/23 11:50 EDT Progress Note-Physicianon Progress Note-Physician Normal [facility] Comment on above: Result Comment: Elec tronically Signed By: Savage Petty MD\.br\Date and Time Signed: 03/06/23 12:09 EDT Progress Note-Physician Normal [facility] Comment on above: Result Comment: Elec tronically Signed By: Lynda Carrero RN\.br\Date and Time Signed: 03/06/23 10:26 EDT\.br\Electronically Co-Signed By: Benji Russell DO\.br\Date and Time Co-Signed: 03/06/23 10:39 EDT Progress Note-Physician Normal [facility] Comment on above: Result Comment: Elec tronically Signed By: Shayy BALLESTEROS MD\.br\Date and Time Signed: 03/06/23 09:20 EDT Auto DiffOrdered By: SYSTEM SYSTEM on 03-05-2023 Basophils/100 WBC (Bld) 0.4 % Normal 0.0-2.0 [facility] Comment on above: Order Comment: Order Added by Discern Expert. Performed By: #### 2 062875, 98288886, 2791632, 9652627 ####[facility] [address] [place] [address] Basophils/Leukocytes Auto (Bld) [Pure # fraction] 0.0 E9/L Normal 0.0-0.2 [facility] Comment on above: Order Comment: Order Added by Discern Expert. Performed By: #### 2 217616, 43347862, 5012881, 4861683 ####[facility] [address] [place] [address] Eosinophils/100 WBC (Bld) 0.4 % Normal 0.0-8.0 [facility] Comment on above: Order Comment: Order Added by Discern Expert. Performed By: #### 2 822576, 00630502, 4674881, 9190691 ####[facility] [address] [place] [address] Eosinophils/Leukocytes Auto (Bld) [Pure # fraction] 0.0 E9/L Normal 0.0-0.5 [facility] Comment on above: Order Comment: Order Added by Discern Expert. Performed By: #### 2 715936, 40343728, 6311847, 1192182 ####[address] [address] Lymphocytes/100 WBC (Bld) 5.2 % Low 14.0-50.0 [facility] Comment on above: Order Comment: Order Added by Discern Expert. Performed By: #### 2 764723, 73898434, 1667330, 1002392 ####[address] [address] Lymphocytes/Leukocytes Auto (Bld) [Pure # fraction] 0.3 E9/L Low 1.0-4.0 [facility] Comment on above: Order Comment: Order Added by Cristiano Expert. Performed By: #### 2 641106, 55099899, 2203294, 4701656 ####[facility] [address] [address] Monocytes/100 WBC (Bld) 9.2 % Normal 4.0-14.0 [facility]eAutoSS Comment on above: Order Comment: Order Added by Cristiano Expert. Performed By: #### 2 016936, 03655016, 0571521, 7151777 ####[address] [address] Monocytes/Leukocytes Auto (Bld) [Pure # fraction] 0.6 E9/L Normal 0.2-1.0 [facility] Comment on above: Order Comment: Order Added by Cristiano Expert. Performed By: #### 2 914627, 90553077, 5846014, 3498428 ####[address] [address] Neutrophils/100 WBC (Bld) 84.8 % High 36.0-75.0 [facility] Comment on above: Order Comment: Order Added by Cristiano Expert. Performed By: #### 2 614428, 03823454, 9675497, 9921065 ####[facility] [place] [address] Neutrophils/Leukocytes Auto (Bld) [Pure # fraction] 5.6 E9/L Normal 2.0-7.5 [facility] Comment on above: Order Comment: Order Added by Discern Expert. Performed By: #### 2 462091, 13685359, 5220849, 5873897 ####[facility] [address] [place] [address] BMPon 03-05-2023 Anion gap [Moles/Vol] 9 mmol/L Normal 6-16 [facility] Comment on above: Performed By: #### 2 763025, 76515539, 1658947, 8746866 ####[facility] [address] [place] [address] Chloride [Moles/Vol] 101 mmol/L Normal 101-111 [facility] Comment on above: Performed By: #### 2 597802, 48771756, 2674525, 7714375 ####[facility] [address] [place] [address] CO2 [Moles/Vol] 26 mmol/L Normal 21-31 [facility] Comment on above: Performed By: #### 2 526113, 46051658, 3699894, 9279893 ####[facility] [address] [place] [address] Potassium [Moles/Vol] 3.6 mmol/L Normal 3.5-5.3 [facility] Comment on above: Performed By: #### 2 382561, 63179460, 5440662, 2226401 ####[facility] [address] [place] [address] Sodium [Moles/Vol] 132 mmol/L Low 135-145 [facility] Comment on above: Performed By: #### 2 225139, 50118425, 3800714, 6251471 ####[facility] [address] [place] [address] Urea nitrogen/Creatinine [Mass ratio] 26 No Units High 10-20 [facility] Comment on above: Performed By: #### 2 908138, 61640204, 4845139, 4818087 ####[facility] [address] [place] [address] BMPOrdered By: SYSTEM SYSTEM on 03-05-2023 Calcium [Mass/Vol] 8.0 mg/dL Low 8.9-11.1 [facility] Comment on above: Performed By: #### 2 222645, 90914548, 0711114, 4097726 ####[facility] [address] [place] [address] Creatinine [Mass/Vol] 0.5 mg/dL Normal 0.5-1.3 [facility] Comment on above: Performed By: #### 2 636224, 19220769, 1273393, 2346332 ####[facility] [address] [place] [address] Glucose [Mass/Vol] 125 mg/dL Normal 55-199 [facility] Comment on above: Result Comment: If t his glucose result represents a fasting glucose, interpretation should refer to the following reference range: 55-99 mg/dL Performed By: #### 2 084466, 74905388, 9590009, 1171587 ####[facility] [address] [place] [address] Urea nitrogen [Mass/Vol] 13 mg/dL Normal 5-21 [facility] Comment on above: Performed By: #### 2 404529, 83808836, 0848798, 3034280 ####[facility] [address] [place] [address] CBC w/ Auto DiffOrdered By: Yane Fitch on 03-05-2023 Erythrocyte distribution width (RBC) [Ratio] 18.2 % High 10.9-14.2 [facility] HemeAutoSS Comment on above: Performed By: #### 2 318927, 55454514, 1787584, 9020031 ####[address] [address] Hematocrit (Bld) [Volume fraction] 25.1 % Low 37.7-49.0 [facility] Comment on above: Performed By: #### 2 947055, 28502802, 1080734, 0008250 ####[place] [address] [address] Hemoglobin (Bld) [Mass/Vol] 8.2 g/dL Low 13.5-17.5 [facility] Comment on above: Performed By: #### 2 622239, 62803258, 9442130, 7442645 ####[place] [address] [address] MCH (RBC) [Entitic mass] 27.4 pg Normal 27.0-34.0 [facility] Comment on above: Performed By: #### 2 337396, 71169558, 8719034, 2733093 ####[facility] [address] [address] MCHC (RBC) [Mass/Vol] 32.6 g/dL Normal 31.4-36.0 [facility] Comment on above: Performed By: #### 2 871116, 18251165, 2467171, 2045807 ####[facility] [address] [address] MCV (RBC) [Entitic vol] 84.1 fL Normal 80.0-100.0 F [facility]AutoSS Comment on above: Performed By: #### 2 301294, 02863564, 9780413, 0929061 ####[place] [address] [address] Platelet mean volume (Bld) [Entitic vol] 8.4 fL Normal 6.4-10.8 [facility] Comment on above: Performed By: #### 2 360864, 92124495, 9309936, 6737756 ####[facility] [address] [address] Platelets (Bld) [#/Vol] 177.0 E9/L Normal 150.0-500.0 [facility] Comment on above: Performed By: #### 2 970314, 33055827, 5673641, 9580543 ####[facility] [address] [place] [address] RBC (Bld) [#/Vol] 3.0 E12/L Low 4.3-5.9 [facility]eAuto[facility] Comment on above: Performed By: #### 2 228058, 61843187, 4326596, 8701310 ####[address] [address] WBC corrected for nucl RBC Auto (Bld) [#/Vol] 6.5 E9/L Normal 4.0-11.0 [facility] HemeAuto[facility] Comment on above: Performed By: #### 2 361207, 56314341, 9687696, 1083215 ####[address] [address] CHEMISTRYOrdered By: SYSTEM SYSTEM on 03-05-2023 Urea nitrogen/Creatinine [Mass ratio] 26 mg/mg High 10 - 20 [facility] Remisol Capillary Glucose POCon 02-08 Glucose [Mass/Vol] 158 mg/dL High 55-99 [facility] Comment on above: Result Comment: Nnuo MARIN Performed By: #### 2 [id number] ####[address] [place] [address] Glucose [Mass/Vol] 130 mg/dL High 55-99 [facility] Comment on above: Result Comment: Nuno MARIN Performed By: #### 2 [id number] ####[facility] [address] [place] [address] Glucose [Mass/Vol] 166 mg/dL High 55-99 [facility] Comment on above: Result Comment: Nuno MARIN Performed By: #### 2 [id number] ####[address] [place] [address] Glucose [Mass/Vol] 174 mg/dL High 55-99 [facility] Comment on above: Result Comment: Nuno MARIN Performed By: #### 2 [id number] ####[facility] [address] [place] [address] Interdisciplinary Note - Michelet e Manageron 03-05-2023 Interdisciplinary Note - Recreation Therapy Aide Normal [facility] Comment on above: Result Comment: Elec tronically Signed By: Leona Schwarz RN\.br\Date and Time Signed: 03/05/23 11:48 EDT Progress Note-Physicianon Progress Note-Physician Normal [facility] Comment on above: Result Comment: Elec tronically Signed By: Savage Petty MD.br\Date and Time Signed: 03/05/23 12:19 EDT eGFROrdered By: SYSTEM Echo TherapeuticsE M on 03-05-2023 GFR/1.73 sq M.predicted among non-blacks MDRD (S/P/Bld) [Vol rate/Area] 106 mL/min/1.73 m2 Normal >=59 [facility] Chem S Comment on above: Order Comment: Order added by Discern Expert. 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 Kidney failure is indicated at less than 15 mL/min/1.73m2. Performed By: #### 2 751648, 59842229, 7954673, 6716797 ####[facility] [address] [place] [address] Auto DiffOrdered By: SYSTEM SYSTEM on 03-04-2023 Basophils/100 WBC (Bld) 1.3 % Normal 0.0-2.0 [facility] HemeAutoSS Comment on above: Order Comment: Order Added by Discern Expert. Performed By: #### 1 8160336, 5078454, 3952336, 6674826 ####[facility] [address] [place] [address] Basophils/Leukocytes Auto (Bld) [Pure # fraction] 0.1 E9/L Normal 0.0-0.2 [facility] HemeAutoSS Comment on above: Order Comment: Order Added by Discern Expert. Performed By: #### 1 8851100, 6289387, 7233794, 3762526 ####[facility] [address] [place] [address] Eosinophils/100 WBC (Bld) 0.0 % Normal 0.0-8.0 [facility]eAutoSS Comment on above: Order Comment: Order Added by Discern Expert. Performed By: #### 1 5489604, 3871678, 2159012, 3041460 ####[address] [address] Eosinophils/Leukocytes Auto (Bld) [Pure # fraction] 0.0 E9/L Normal 0.0-0.5 [facility] HemeAutoSS Comment on above: Order Comment: Order Added by Discern Expert. Performed By: #### 1 5358274, 5011059, 6355989, 9711115 ####[address] [address] Lymphocytes/100 WBC (Bld) 4.6 % Low 14.0-50.0 [facility]eAutoSS Comment on above: Order Comment: Order Added by Discern Expert. Performed By: #### 1 6495803, 7546939, 3184608, 1736158 ####[address] [address] Lymphocytes/Leukocytes Auto (Bld) [Pure # fraction] 0.4 E9/L Low 1.0-4.0 [facility] HemeAutoSS Comment on above: Order Comment: Order Added by Discern Expert. Performed By: #### 1 1998433, 6899745, 7102251, 6644948 ####[address] [address] Monocytes/100 WBC (Bld) 9.5 % Normal 4.0-14.0 [facility] HemeAutoSS Comment on above: Order Comment: Order Added by Discern Expert. Performed By: #### 1 3147129, 3168799, 8500460, 6075071 ####[address] [address] Monocytes/Leukocytes Auto (Bld) [Pure # fraction] 0.9 E9/L Normal 0.2-1.0 [facility] HemeAutoSS Comment on above: Order Comment: Order Added by Discern Expert. Performed By: #### 1 9748340, 2407857, 9022472, 9183878 ####[facility] [address] [place] [address] Neutrophils/100 WBC (Bld) 84.6 % High 36.0-75.0 [facility] HemeAutoSS Comment on above: Order Comment: Order Added by Discern Expert. Performed By: #### 1 7776136, 2702067, 8088256, 8764625 ####[address] [address] Neutrophils/Leukocytes Auto (Bld) [Pure # fraction] 8.0 E9/L High 2.0-7.5 [facility] HemeAutoSS Comment on above: Order Comment: Order Added by Discern Expert. Performed By: #### 1 9535430, 6796479, 9654727, 6501767 ####[address] [address] BMPon 03-04-2023 Anion gap [Moles/Vol] 7 mmol/L Normal 6-16 [facility] Comment on above: Order Comment: line packet dropped off to floor...[facility] 03/04/2023 05:14:11 EDT Performed By: #### 1 1043057, 0404491, 3219675, 3869209 ####[address] [address] Chloride [Moles/Vol] 102 mmol/L Normal 101-111 [facility] Comment on above: Order Comment: line packet dropped off to floor...[facility] 03/04/2023 05:14:11 EDT Performed By: #### 1 0969557, 1940533, 9179295, 8894586 ####[address] [place] [address] CO2 [Moles/Vol] 27 mmol/L Normal 21-31 [facility] Comment on above: Order Comment: line packet dropped off to floor...[facility] 03/04/2023 05:14:11 EDT Performed By: #### 1 7972792, 4276032, 3161645, 2331997 ####[address] [address] Potassium [Moles/Vol] 4.0 mmol/L Normal 3.5-5.3 [facility] Comment on above: Order Comment: line packet dropped off to floor...[facility] 03/04/2023 05:14:11 EDT Performed By: #### 1 0540174, 2823106, 6186886, 3295136 ####[facility] [address] [place] [address] Sodium [Moles/Vol] 132 mmol/L Low 135-145 [facility] Comment on above: Order Comment: line packet dropped off to floor...[facility] 03/04/2023 05:14:11 EDT Performed By: #### 1 0466467, 2197108, 4743213, 4416302 ####[facility] [address] [place] [address] Urea nitrogen/Creatinine [Mass ratio] 34 No Units High 10-20 [facility] Comment on above: Order Comment: line packet dropped off to floor...[facility] 03/04/2023 05:14:11 EDT Performed By: #### 1 6219768, 4520379, 3384533, 1394438 ####[facility] [address] [place] [address] BMPOrdered By: SYSTEM SYSTEM on 03-04-2023 Calcium [Mass/Vol] 8.1 mg/dL Low 8.9-11.1 [facility] Remisol Comment on above: Order Comment: line packet dropped off to floor...[facility] 03/04/2023 05:14:11 EDT Performed By: #### 1 8127182, 4616253, 1064097, 6148103 ####[facility] [address] [place] [address] Creatinine [Mass/Vol] 0.5 mg/dL Normal 0.5-1.3 [facility] Comment on above: Order Comment: line packet dropped off to floor...[facility] 03/04/2023 05:14:11 EDT Performed By: #### 1 6549897, 1704636, 5492185, 1522905 ####[facility] [address] [place] [address] Glucose [Mass/Vol] 129 mg/dL Normal 55-199 [facility] Remisol Comment on above: Order Comment: line packet dropped off to floor...[facility] 03/04/2023 05:14:11 EDT Result Comment: If t his glucose result represents a fasting glucose, interpretation should refer to the following reference range: 55-99 mg/dL Performed By: #### 1 0686854, 3629894, 3383406, 8290027 ####[facility] [address] [place] [address] Urea nitrogen [Mass/Vol] 17 mg/dL Normal 5-21 [facility] Remisol Comment on above: Order Comment: line packet dropped off to floor...[facility] 03/04/2023 05:14:11 EDT Performed By: #### 1 3787331, 5528960, 0286634, 1191273 ####[address] [address] CBC w/ Auto DiffOrdered By: Yane Fitch on 03-04-2023 Erythrocyte distribution width (RBC) [Ratio] 17.9 % High 10.9-14.2 [facility] HemeAutoSS Comment on above: Performed By: #### 1 4329292, 1851057, 5421577, 8387113 ####[place] [address] [address] Hematocrit (Bld) [Volume fraction] 26.9 % Low 37.7-49.0 [facility] HemeAutoSS Comment on above: Performed By: #### 1 8420925, 9517556, 1182000, 5495586 ####[address] [address] Hemoglobin (Bld) [Mass/Vol] 8.8 g/dL Low 13.5-17.5 [facility] HemeAutoSS Comment on above: Performed By: #### 1 0426291, 0741326, 5333331, 8567360 ####[address] [address] MCH (RBC) [Entitic mass] 27.4 pg Normal 27.0-34.0 [facility] Comment on above: Performed By: #### 1 5204157, 5422352, 8295089, 5256463 ####[address] MCHC (RBC) [Mass/Vol] 32.8 g/dL Normal 31.4-36.0 [facility]eAutoSS Comment on above: Performed By: #### 1 1292378, 9438937, 1479194, 8254188 ####[place] [address] MCV (RBC) [Entitic vol] 83.7 fL Normal 80.0-100.0 [facility]eAutoSS Comment on above: Performed By: #### 1 6422174, 4365713, 7447805, 1198162 ####[place] [address] Platelet mean volume (Bld) [Entitic vol] 8.4 fL Normal 6.4-10.8 [facility]Auto[facility] Comment on above: Performed By: #### 1 2938560, 5013009, 1155002, 9254671 ####[address] Platelets (Bld) [#/Vol] 185.0 E9/L Normal 150.0-500.0 [facility] Comment on above: Performed By: #### 1 4674774, 3407480, 6581869, 6489351 ####[address] RBC (Bld) [#/Vol] 3.2 E12/L Low 4.3-5.9 [facility]eAutoSS Comment on above: Performed By: #### 1 4697659, 0363588, 8347185, 6102092 ####[address] [address] WBC corrected for nucl RBC Auto (Bld) [#/Vol] 9.5 E9/L Normal 4.0-11.0 [facility] Comment on above: Performed By: #### 1 1997104, 4756520, 3226223, 3946207 ####[facility] [address] [place] [address] CHEMISTRYOrdered By: SYSTEM SYSTEM on 03-04-2023 Urea nitrogen/Creatinine [Mass ratio] 34 mg/mg High 10 - 20 [facility] Remisol Capillary Glucose POCon 02-08 Glucose [Mass/Vol] 123 mg/dL High 55-99 [facility] Comment on above: Result Comment: Nuno MARIN Performed By: #### 2 36569153 ####[facility] [address] [place] [address] Glucose [Mass/Vol] 158 mg/dL High 55-99 [facility] Comment on above: Result Comment: uNno MARIN Performed By: #### 2 16334159 ####[facility] [address] [place] [address] Glucose [Mass/Vol] 154 mg/dL High 55- [facility] Comment on above: Result Comment: Nuno MARIN Performed By: #### 2 57408597 ####[facility] [address] [place] [address] Glucose [Mass/Vol] 136 mg/dL High 55-99 [facility] Comment on above: Result Comment: Nuno MARIN Performed By: #### 2 29549573 ####[facility] [address] [place] [address] Consent for Anesthesiaon Consent for Anesthesia [id number]#[id number] D:127 Normal [facility] Interdisciplinary Note - Michelet e Manageron 03-04-2023 Interdisciplinary Note - Recreation Therapy Aide Normal [facility] Comment on above: Result Comment: Elec tronically Signed By: Дмитрий GUARDADO, Alla\.br\Date and Time Signed: 03/04/23 13:05 EDT Interdisciplinary Note - Alf singon 03-04-2023 Interdisciplinary Note - Nursing Patient dressing was changed as it come off with continued movement. Normal [facility] Interdisciplinary Note - Nut ritionon 03-04-2023 Interdisciplinary Note - Nutrition Normal [facility] Comment on above: Result Comment: Elec tronically Signed By: LD. Zavala RD., Misty\.br\Date and Time Signed: 03/04/23 10:48 EDT Other Comment: leonie cr Interdisciplinary Note - Ashley n 03-04-2023 Interdisciplinary Note - OT Normal [facility] IntraOperative Documentson 0 03-04-2023 IntraOperative Documents [id number]#1.00C D:127 Normal [facility] Main OR Intraoperative Recor don 03-04-2023 Main OR Intraoperative Record Normal [facility] Progress Note-Physicianon Progress Note-Physician Normal [facility] Comment on above: Result Comment: Elec tronically Signed By: Katheryn WISE, Aiden\.br\Date and Time Signed: 03/04/23 21:12 EDT Progress Note-Physician Normal [facility] Comment on above: Result Comment: Elec tronically Signed By: Chong Coe M.D\.br\Date and Time Signed: 03/04/23 09:39 EDT eGFROrdered By: LUZ Mckeon on 03-04-2023 GFR/1.73 sq M.predicted among non-blacks MDRD (S/P/Bld) [Vol rate/Area] 106 mL/min/1.73 m2 Normal >=59 [facility] Chem S Comment on above: Order Comment: Order added by Discern Expert. 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 Kidney failure is indicated at less than 15 mL/min/1.73m2. Performed By: #### 1 3225477, 7068569, 8482496, 8076901 ####[facility] [address] [place] [address] Auto Diffon 03-03-2023 Basophils/100 WBC (Bld) 2.3 % High 0.0-2.0 [facility] Comment on above: Order Comment: Order Added by Discern Expert. Performed By: #### 2 970890, 7245135, 0969185, 67167393 ####[address] [place] [address] Basophils/Leukocytes Auto (Bld) [Pure # fraction] 0.2 E9/L Normal 0.0-0.2 [facility] Comment on above: Order Comment: Order Added by Discern Expert. Performed By: #### 2 817093, 7413331, 1926389, 53478344 ####[address] [address] Eosinophils/100 WBC (Bld) 0.8 % Normal 0.0-8.0 [facility] Comment on above: Order Comment: Order Added by Discern Expert. Performed By: #### 2 675922, 9186363, 2150768, 41549189 ####[address] [address] Eosinophils/Leukocytes Auto (Bld) [Pure # fraction] 0.1 E9/L Normal 0.0-0.5 [facility] Comment on above: Order Comment: Order Added by Discern Expert. Performed By: #### 2 653621, 1131069, 1959464, 77480798 ####[address] [address] Lymphocytes/100 WBC (Bld) 5.9 % Low 14.0-50.0 [facility] Comment on above: Order Comment: Order Added by Discern Expert. Performed By: #### 2 622588, 7242184, 6532972, 37962444 ####[address] [place] [address] Lymphocytes/Leukocytes Auto (Bld) [Pure # fraction] 0.4 E9/L Low 1.0-4.0 [facility] Comment on above: Order Comment: Order Added by Discern Expert. Performed By: #### 2 490221, 4315747, 8852678, 56130454 ####[address] [address] Monocytes/100 WBC (Bld) 10.3 % Normal 4.0-14.0 [facility] Comment on above: Order Comment: Order Added by Discern Expert. Performed By: #### 2 182197, 8398717, 5094688, 97339253 ####[address] [place] [address] Monocytes/Leukocytes Auto (Bld) [Pure # fraction] 0.7 E9/L Normal 0.2-1.0 [facility] Comment on above: Order Comment: Order Added by Discern Expert. Performed By: #### 2 483589, 9280446, 4966568, 96845796 ####[address] [place] [address] Neutrophils/100 WBC (Bld) 80.7 % High 36.0-75.0 [facility] Comment on above: Order Comment: Order Added by Discern Expert. Performed By: #### 2 069683, 1210798, 5764588, 05640919 ####[address] [place] [address] Neutrophils/Leukocytes Auto (Bld) [Pure # fraction] 5.4 E9/L Normal 2.0-7.5 [facility] Comment on above: Order Comment: Order Added by Discern Expert. Performed By: #### 2 583835, 4180825, 9150650, 55590184 ####[facility] [address] [place] [address] BMPon 03-03-2023 Anion gap [Moles/Vol] 7 mmol/L Normal 6-16 [facility] Comment on above: Performed By: #### 2 056165, 6953104, 2770362, 05540865 ####[address] [place] [address] Calcium [Mass/Vol] 8.1 mg/dL Low 8.9-11.1 [facility] Comment on above: Performed By: #### 2 820186, 7268445, 4043015, 94471996 ####[facility] [address] [place] [address] Chloride [Moles/Vol] 102 mmol/L Normal 101-111 [facility] Comment on above: Performed By: #### 2 163190, 8329968, 9102423, 54680052 ####[facility] [address] [place] [address] CO2 [Moles/Vol] 27 mmol/L Normal 21-31 [facility] Comment on above: Performed By: #### 2 403651, 1284115, 1112258, 25012771 ####[facility] [address] [place] [address] Creatinine [Mass/Vol] 0.5 mg/dL Normal 0.5-1.3 [facility] Comment on above: Performed By: #### 2 922678, 9367641, 6772721, 22368050 ####[facility] [address] [place] [address] Glucose [Mass/Vol] 125 mg/dL Normal 55-199 [facility] Comment on above: Result Comment: If t his glucose result represents a fasting glucose, interpretation should refer to the following reference range: 55-99 mg/dL Performed By: #### 2 002877, 4867563, 8952655, 02095712 ####[facility] [address] [place] [address] Potassium [Moles/Vol] 3.7 mmol/L Normal 3.5-5.3 [facility] Comment on above: Performed By: #### 2 135684, 7172094, 1091642, 01742373 ####[facility] [address] [place] [address] Sodium [Moles/Vol] 132 mmol/L Low 135-145 [facility] Comment on above: Performed By: #### 2 549242, 6582505, 0531007, 99067695 ####[facility] [address] [place] [address] Urea nitrogen [Mass/Vol] 20 mg/dL Normal 5-21 [facility] Comment on above: Performed By: #### 2 857935, 2271637, 4329040, 13051261 ####[facility] [address] [place] [address] Urea nitrogen/Creatinine [Mass ratio] 40 No Units High 10-20 [facility] Comment on above: Performed By: #### 2 798170, 2083448, 5666109, 94163522 ####[address] [place] [address] CBC w/ Auto Diffon 3 Erythrocyte distribution width (RBC) [Ratio] 18.1 % High 10.9-14.2 [facility] Comment on above: Performed By: #### 2 186097, 4131311, 8442998, 08960395 ####[address] [address] Hematocrit (Bld) [Volume fraction] 26.1 % Low 37.7-49.0 [facility] Comment on above: Performed By: #### 2 563305, 9677735, 0115271, 20446324 ####[address] [address] Hemoglobin (Bld) [Mass/Vol] 8.6 g/dL Low 13.5-17.5 [facility] Comment on above: Performed By: #### 2 824447, 3891633, 5246563, 96081469 ####[address] [address] MCH (RBC) [Entitic mass] 27.1 pg Normal 27.0-34.0 [facility] Comment on above: Performed By: #### 2 824523, 1648234, 2698049, 05011922 ####[address] [address] MCHC (RBC) [Mass/Vol] 32.9 g/dL Normal 31.4-36.0 [facility] Comment on above: Performed By: #### 2 968325, 1467298, 2972835, 04761063 ####[address] [place] [address] MCV (RBC) [Entitic vol] 82.4 fL Normal 80.0-100.0 [facility] Comment on above: Performed By: #### 2 850348, 5573374, 7061349, 01846466 ####[address] [address] Platelet mean volume (Bld) [Entitic vol] 9.1 fL Normal 6.4-10.8 [facility] Comment on above: Performed By: #### 2 981370, 2484256, 4252634, 66740984 ####[address] [address] Platelets (Bld) [#/Vol] 169.0 E9/L Normal 150.0-500.0 [facility] Comment on above: Performed By: #### 2 133151, 8187228, 1712300, 51932259 ####[address] [address] RBC (Bld) [#/Vol] 3.2 E12/L Low 4.3-5.9 [facility] Comment on above: Performed By: #### 2 640003, 0802085, 9976172, 54351278 ####[address] [address] WBC corrected for nucl RBC Auto (Bld) [#/Vol] 6.7 E9/L Normal 4.0-11.0 [facility] Comment on above: Performed By: #### 2 752892, 1920041, 4076968, 98286692 ####[address] [address] Capillary Glucose POC 02-08 Glucose [Mass/Vol] 235 mg/dL High 55-99 [facility] Comment on above: Result Comment: Nuno aranda RN/ Performed By: #### 2 59200672 ####[address] [address] Glucose [Mass/Vol] 215 mg/dL High 55-99 [facility] Comment on above: Result Comment: Nuno aranda RN/ Performed By: #### 2 52760749 ####[facility] [address] [place] [address] Glucose [Mass/Vol] 111 mg/dL High 55-99 [facility] Comment on above: Result Comment: Nuno aranda RN/ Performed By: #### 2 48333203 ####[facility] [address] [place] [address] Glucose [Mass/Vol] 128 mg/dL High 55-99 [facility] Comment on above: Result Comment: Nuno aranda RN/ Performed By: #### 2 94376733 ####[facility] [address] [place] [address] Consent for Procedure/Surger yon 03-03-2023 Consent for Procedure/Surgery [id number]#1.00CD: 127 Normal [facility] Discharge Instructionson Discharge Instructions [id number]#1.00CD :127 Normal [facility] Interdisciplinary Note - Michelet e Manageron 03-03-2023 Interdisciplinary Note - Recreation Therapy Aide 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 No family in room. Plan is to go to [facility] at discharge. Normal [facility] Comment on above: Result Comment: Elec tronically Signed By: Дмитрий RN, Alla\.br\Date and Time Signed: 03/03/23 11:35 EDT Main OR PACU I Recordon 02-08 Main OR PACU I Record Normal [facility] Main OR Preoperative Recordo n 03-03-2023 Main OR Preoperative Record Normal [facility] Monitor Recordon 03-03-2023 Monitor Record [id number]#[id number] :127 Normal [facility] Monitor Record [id number]#1.00CD :127 Normal [facility] Monitor Record [id number]#1.00CD :127 Normal [facility] Progress Note-Physicianon Progress Note-Physician Normal [facility] Comment on above: Result Comment: Elec tronically Signed By: Katheryn WISE, Aiden\.br\Date and Time Signed: 03/03/23 18:30 EDT eGFRon 03-03-2023 GFR/1.73 sq M.predicted among non-blacks MDRD (S/P/Bld) [Vol rate/Area] 106 mL/min/1.73 m2 Normal >=59 [facility] Comment on above: Order Comment: Order added by Discern Expert. 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 Kidney failure is indicated at less than 15 mL/min/1.73m2. Performed By: #### 2 136683, 9239557, 0828549, 07121626 ####[facility] [address] [place] [address] Auto Diffon 03-02-2023 Basophils/100 WBC (Bld) 1.0 % Normal 0.0-2.0 [facility] Comment on above: Order Comment: Order Added by Discern Expert. Performed By: #### 1 3014639, 4710106, 8079752, 8450220, 4961406 ####[facility] [address] [place] [address] Basophils/Leukocytes Auto (Bld) [Pure # fraction] 0.1 E9/L Normal 0.0-0.2 [facility] Comment on above: Order Comment: Order Added by Discern Expert. Performed By: #### 1 9854639, 4985760, 9188473, 2013992, 5629138 ####[facility] [address] [place] [address] Eosinophils/100 WBC (Bld) 0.2 % Normal 0.0-8.0 [facility] Comment on above: Order Comment: Order Added by Discern Expert. Performed By: #### 1 7075678, 1362505, 2780315, 6137057, 1419408 ####[address] [place] [address] Eosinophils/Leukocytes Auto (Bld) [Pure # fraction] 0.0 E9/L Normal 0.0-0.5 [facility] Comment on above: Order Comment: Order Added by Cristiano Expert. Performed By: #### 1 2226530, 4202293, 3157863, 8518641, 9414239 ####[address] [place] [address] Lymphocytes/100 WBC (Bld) 4.7 % Low 14.0-50.0 [facility] Comment on above: Order Comment: Order Added by Cristiano Expert. Performed By: #### 1 9788299, 3255181, 7967464, 6894534, 2598362 ####[address] [address] Lymphocytes/Leukocytes Auto (Bld) [Pure # fraction] 0.3 E9/L Low 1.0-4.0 [facility] Comment on above: Order Comment: Order Added by Cristiano Expert. Performed By: #### 1 3039895, 6266863, 9878368, 1144672, 1086386 ####[address] [address] Monocytes/100 WBC (Bld) 10.1 % Normal 4.0-14.0 [facility] Comment on above: Order Comment: Order Added by Cristiano Expert. Performed By: #### 1 9741531, 5990731, 4797082, 8957784, 4229332 ####[address] [place] [address] Monocytes/Leukocytes Auto (Bld) [Pure # fraction] 0.7 E9/L Normal 0.2-1.0 [facility] Comment on above: Order Comment: Order Added by Cristiano Expert. Performed By: #### 1 7487882, 7214711, 6900279, 4853230, 4626712 ####[address] [place] [address] Neutrophils/100 WBC (Bld) 84.0 % High 36.0-75.0 [facility] Comment on above: Order Comment: Order Added by Discern Expert. Performed By: #### 1 0165775, 7046737, 7734269, 5754875, 0052120 ####[address] [place] [address] Neutrophils/Leukocytes Auto (Bld) [Pure # fraction] 5.6 E9/L Normal 2.0-7.5 [facility] Comment on above: Order Comment: Order Added by Discern Expert. Performed By: #### 1 7544756, 8471039, 6356566, 6850873, 3593566 ####[address] [place] [address] BMPon 03-02-2023 Anion gap [Moles/Vol] 8 mmol/L Normal 6-16 [facility] Comment on above: Order Comment: line packet sent up to floor...[facility] 03/02/2023 05:13:13 EDT Performed By: #### 1 6871967, 6006476, 2252873, 7114854, 9745780 ####[address] [place] [address] Calcium [Mass/Vol] 8.1 mg/dL Low 8.9-11.1 [facility] Comment on above: Order Comment: line packet sent up to floor...[facility] 03/02/2023 05:13:13 EDT Performed By: #### 1 7778900, 0487911, 1296902, 9853393, 6618179 ####[facility] [address] [place] [address] Chloride [Moles/Vol] 102 mmol/L Normal 101-111 [facility] Comment on above: Order Comment: line packet sent up to floor...[facility] 03/02/2023 05:13:13 EDT Performed By: #### 1 7337447, 6995869, 8300899, 0961631, 3386985 ####[facility] [address] [facility] [place] [address] CO2 [Moles/Vol] 27 mmol/L Normal 21-31 [facility] Comment on above: Order Comment: line packet sent up to floor...[facility] 03/02/2023 05:13:13 EDT Performed By: #### 1 4318455, 9830881, 1613225, 2345954, 6298635 ####[facility] [address] [place] [address] Creatinine [Mass/Vol] 0.6 mg/dL Normal 0.5-1.3 [facility] Comment on above: Order Comment: line packet sent up to floor...[facility] 03/02/2023 05:13:13 EDT Performed By: #### 1 4952304, 2435714, 5905223, 3745414, 7526956 ####[facility] [address] [place] [address] Glucose [Mass/Vol] 132 mg/dL Normal 55-199 [facility] Comment on above: Order Comment: line packet sent up to floor...[facility] 03/02/2023 05:13:13 EDT Result Comment: If t his glucose result represents a fasting glucose, interpretation should refer to the following reference range: 55-99 mg/dL Performed By: #### 1 3110016, 3824049, 7395774, 6771743, 9848626 ####[facility] [address] [place] [address] Potassium [Moles/Vol] 3.9 mmol/L Normal 3.5-5.3 [facility] Comment on above: Order Comment: line packet sent up to floor...[facility] 03/02/2023 05:13:13 EDT Performed By: #### 1 5139281, 6223246, 9211624, 7322715, 5684436 ####[facility] [address] [place] [address] Sodium [Moles/Vol] 133 mmol/L Low 135-145 [facility] Comment on above: Order Comment: line packet sent up to floor...[facility] 03/02/2023 05:13:13 EDT Performed By: #### 1 8324028, 7879686, 2031514, 3250641, 0117242 ####[facility] [address] [place] [address] Urea nitrogen [Mass/Vol] 19 mg/dL Normal 5-21 [facility] Comment on above: Order Comment: line packet sent up to floor...[facility] 03/02/2023 05:13:13 EDT Performed By: #### 1 8824885, 2532799, 6867665, 9958992, 5626137 ####[facility] [address] [place] [address] Urea nitrogen/Creatinine [Mass ratio] 32 No Units High 10-20 [facility] Comment on above: Order Comment: line packet sent up to floor...[facility] 03/02/2023 05:13:13 EDT Performed By: #### 1 6562940, 0484540, 4301347, 3029879, 2361586 ####[address] [address] C Blood Charcoalon 3 Blood Culture Charcoal Normal [facility] Comment on above: Performed By: #### 1 7373741 ####[address] [address] Blood Culture Charcoal Normal [facility] Comment on above: Performed By: #### 1 5270734 ####[address] [address] CBC w/ Auto Diffon 3 Erythrocyte distribution width (RBC) [Ratio] 17.5 % High 10.9-14.2 [facility] Comment on above: Performed By: #### 1 0396099, 7602519, 1077439, 1329561, 2555732 ####[facility] [address] [place] [address] Hematocrit (Bld) [Volume fraction] 25.4 % Low 37.7-49.0 [facility] Comment on above: Performed By: #### 1 3039627, 5741843, 3215354, 0529248, 6733876 ####[facility] [address] [place] [address] Hemoglobin (Bld) [Mass/Vol] 8.3 g/dL Low 13.5-17.5 [facility] Comment on above: Performed By: #### 1 5445158, 5805153, 0490944, 6378346, 9019307 ####[address] [place] [address] MCH (RBC) [Entitic mass] 26.9 pg Low 27.0-34.0 [facility] Comment on above: Performed By: #### 1 7368432, 2276781, 3754258, 3825735, 8290844 ####[address] [address] MCHC (RBC) [Mass/Vol] 32.7 g/dL Normal 31.4-36.0 [facility] Comment on above: Performed By: #### 1 6721869, 2345674, 3731767, 4479784, 7779547 ####[address] [address] MCV (RBC) [Entitic vol] 82.3 fL Normal 80.0-100.0 [facility] Comment on above: Performed By: #### 1 2453900, 0812276, 4804061, 2762774, 8157894 ####[address] [address] Platelet mean volume (Bld) [Entitic vol] 8.5 fL Normal 6.4-10.8 [facility] Comment on above: Performed By: #### 1 5508546, 4579393, 1780558, 6115631, 8714233 ####[address] [place] [address] Platelets (Bld) [#/Vol] 152.0 E9/L Normal 150.0-500.0 [facility] Comment on above: Performed By: #### 1 2973871, 8931848, 4192128, 2590497, 0965666 ####[facility] [address] [place] [address] RBC (Bld) [#/Vol] 3.1 E12/L Low 4.3-5.9 [facility] Comment on above: Performed By: #### 1 9840218, 3245101, 5704844, 2670124, 7649801 ####[facility] [address] [place] [address] WBC corrected for nucl RBC Auto (Bld) [#/Vol] 6.7 E9/L Normal 4.0-11.0 [facility] Comment on above: Performed By: #### 1 8603673, 6646421, 7652771, 1128966, 8782708 ####[facility] [address] [place] [address] CHEMISTRYOrdered By: SYSTEM SYSTEM on 03-02-2023 CK [Catalytic activity/Vol] 197 [iU]/d Normal 14 - 261 Int._Unit/L [facility] Remisol CKon 03-02-2023 CK [Catalytic activity/Vol] 197 Int._Unit/L Normal 14-261 [facility] Comment on above: Performed By: #### 1 8933486, 2902236, 8512645, 5241152, 4984736 ####[facility] [address] [place] [address] Capillary Glucose POCon 02-08 Glucose [Mass/Vol] 98 mg/dL Normal 55-99 [facility] Comment on above: Result Comment: Nuno MARIN Performed By: #### 2 92826118 ####[facility] [address] [place] [address] Glucose [Mass/Vol] 96 mg/dL Normal 55-99 [facility] Comment on above: Result Comment: Nuno MARIN Performed By: #### 2 49185998 ####[facility] [address] [place] [address] Glucose [Mass/Vol] 164 mg/dL High 55-99 [facility] Comment on above: Result Comment: Nuno MARIN Performed By: #### 2 11675197 ####[facility] [address] [place] [address] Glucose [Mass/Vol] 112 mg/dL High 55-99 [facility] Comment on above: Result Comment: Nuno MARIN Performed By: #### 2 59937010 ####[facility] [address] [place] [address] Glucose [Mass/Vol] 111 mg/dL High 55-99 [facility] Comment on above: Result Comment: Nuno MARIN Performed By: #### 2 94382389 ####[facility] [address] [place] [address] Ferritinon 03-02-2023 Ferritin [Mass/Vol] 86 ng/mL Normal 24-336 [facility] Comment on above: Result Comment: NORM ALS MEN <30 YRS 16-132 ng/mL MEN >30 YRS 8-338 ng/mL WOMEN (PREMEN) 6-104 ng/mL WOMEN (POSTMEN) 12-210 ng/mL Performed By: #### 1 2196010, 29880967, 7125061, 5255532, 9083819, 20246561, 6541567, 3639352, 4498422, 65207651 ####[facility] [address] [place] [address] Folateon 03-02-2023 Folate [Mass/Vol] 19.8 ng/mL Normal >=6.7 [facility] Comment on above: Performed By: #### 1 3246431, 34245545, 1075107, 0731562, 5252928, 10307733, 4000547, 8870065, 7575689, 38864186 ####[facility] [address] [place] [address] Interdisciplinary Note - Michelet e Manageron 03-02-2023 Interdisciplinary Note - Recreation Therapy Aide Normal [facility] Comment on above: Result Comment: Elec tronically Signed By: Chong GUARDADO, Leona\.fabio\Date and Time Signed: 03/02/23 11:48 EDT Progress Note-Physicianon Progress Note-Physician Normal [facility] Comment on above: Result Comment: Elec tronically Signed By: Lynda Carrero RN\.br\Date and Time Signed: 03/02/23 09:23 EDT\.br\Electronically Co-Signed By: Andrea Lomax MD\.br\Date and Time Co-Signed: 03/02/23 09:35 EDT Vit B12on 03-02-2023 Cobalamin (Vitamin B12) [Mass/Vol] 1175 pg/mL Normal 50-1500 [facility] Comment on above: Performed By: #### 2 450441, 6676280, 90516915, 68730343, 81373743, 91938489, 1702003, 7612609 ####[facility] [address] [place] [address] eGFRon 03-02-2023 GFR/1.73 sq M.predicted among non-blacks MDRD (S/P/Bld) [Vol rate/Area] 100 mL/min/1.73 m2 Normal >=59 [facility] Comment on above: Order Comment: Order added by Discern Expert. Result Comment: Warehouse And Receiving Supervisor aeln kidney disease could be indicated at eGFR's of less than 60 mL/min/1.73m2. Kidney failure is indicated at less than 15 mL/min/1.73m2. Performed By: #### 1 4172758, 1518737, 0244415, 1916086, 2293075 ####[facility] [address] [place] [address] ABO/Rhon 03-01-2023 ABO/Rh Positive Invalid Interpretation Code [facility] Comment on above: Performed By: #### 1 0921988, 04835081, 6618156, 2335247, 1242903, 12966069, 7804555, 8787965, 3481635, 57416421 ####[facility] [address] [place] [address] ABO/Rh History Checkon 03-01 ABO/Rh History Check Type verified by se cond s Normal [facility] Comment on above: Performed By: #### 1 9161006, 81048786, 3150769, 5271323, 5760246, 30349081, 6076243, 8178637, 1698785, 64940863 ####[facility] [address] [place] [address] ABO/Rh Retypeon 03-01-2023 ABO/Rh Retype Interp Positive Invalid Interpretation Code [facility] Comment on above: Performed By: #### 2 426199, 6736641, 32614310, 47580249, 81867266, 14978234, 8376565, 9038905 ####[address] [place] [address] ABSCon 03-01-2023 ABSC Gel Interp Negative Normal [facility] Comment on above: Performed By: #### 1 8368361, 22293264, 0785400, 8978067, 0359356, 25543358, 7901341, 4709270, 9695006, 12284965 ####[facility] [address] [place] [address] Auto Diffon 03-01-2023 Basophils/100 WBC (Bld) 0.6 % Normal 0.0-2.0 [facility] Comment on above: Order Comment: Order Added by Discern Expert. Performed By: #### 2 757219, 3455039, 16857593, 96019218, 53486772, 41762804, 6427286, 1692882 ####[address] [place] [address] Basophils/Leukocytes Auto (Bld) [Pure # fraction] 0.0 E9/L Normal 0.0-0.2 [facility] Comment on above: Order Comment: Order Added by Discern Expert. Performed By: #### 2 378633, 7821313, 61591863, 39694410, 31978707, 05053804, 7472339, 8385721 ####[address] [place] [address] Eosinophils/100 WBC (Bld) 0.5 % Normal 0.0-8.0 [facility] Comment on above: Order Comment: Order Added by Discern Expert. Performed By: #### 2 531740, 6718633, 65238088, 13310574, 64192834, 22125813, 9023246, 5769001 ####[facility] [address] [place] [address] Eosinophils/Leukocytes Auto (Bld) [Pure # fraction] 0.0 E9/L Normal 0.0-0.5 [facility] Comment on above: Order Comment: Order Added by Discern Expert. Performed By: #### 2 889184, 6979042, 30389741, 52567457, 39857323, 09302917, 3410000, 5170093 ####[address] [place] [address] Lymphocytes/100 WBC (Bld) 8.7 % Low 14.0-50.0 [facility] Comment on above: Order Comment: Order Added by Discern Expert. Performed By: #### 2 839128, 3621563, 02301752, 43435058, 09655311, 73705722, 5650172, 4533235 ####[address] [address] Lymphocytes/Leukocytes Auto (Bld) [Pure # fraction] 0.5 E9/L Low 1.0-4.0 [facility] Comment on above: Order Comment: Order Added by Discern Expert. Performed By: #### 2 972125, 0545015, 53365918, 95056984, 68254446, 36435074, 6168561, 9546356 ####[facility] [address] [place] [address] Monocytes/100 WBC (Bld) 11.3 % Normal 4.0-14.0 [facility] Comment on above: Order Comment: Order Added by Cristiano Expert. Performed By: #### 2 442270, 3370287, 51906431, 09484213, 51090712, 68683606, 4905709, 4233018 ####[facility] [address] [place] [address] Monocytes/Leukocytes Auto (Bld) [Pure # fraction] 0.6 E9/L Normal 0.2-1.0 [facility] Comment on above: Order Comment: Order Added by Discern Expert. Performed By: #### 2 028517, 4736529, 59007432, 33638773, 78955576, 61229947, 3447957, 3257884 ####[facility] [address] [place] [address] Neutrophils/100 WBC (Bld) 78.9 % High 36.0-75.0 [facility] Comment on above: Order Comment: Order Added by Discern Expert. Performed By: #### 2 565969, 3634257, 44177962, 92456768, 62461332, 33111414, 8789257, 2156682 ####[address] [place] [address] Neutrophils/Leukocytes Auto (Bld) [Pure # fraction] 4.3 E9/L Normal 2.0-7.5 [facility] Comment on above: Order Comment: Order Added by Discern Expert. Performed By: #### 2 363701, 5572505, 15328660, 11426584, 58248268, 81317764, 8989027, 9513028 ####[facility] [address] [place] [address] BLOOD BANKOrdered By: Fabi Massey on 03-01-2023 ABO/Rh Interp Positive Invalid Interpretation Code [facility] BB Subsection ABSC Gel Interp Negative (03/01/23 8:13 AM) Normal [facility] BB Subsection ABO/Rh Retype Interp Positive Invalid Interpretation Code [facility] BB Subsection Blood Bank ID#on 03-01-2023 BBID# [id number] Invalid Interpretation Code [facility] Comment on above: Performed By: #### 1 6666408, 86172869, 0390634, 7658141, 5772541, 39758655, 7712742, 8721945, 1170195, 81733954 ####[facility] [address] [place] [address] CBC w/ Auto Diffon Erythrocyte distribution width (RBC) [Ratio] 19.2 % High 10.9-14.2 [facility] Comment on above: Performed By: #### 2 939789, 7806024, 77289443, 71880210, 04368848, 57098621, 8976909, 8439108 ####[facility] [address] [place] [address] Hematocrit (Bld) [Volume fraction] 19.9 % Low 37.7-49.0 [facility] Comment on above: Performed By: #### 2 838628, 0684597, 15106261, 26004758, 91485802, 28907800, 8682008, 9486072 ####[facility] [address] [place] [address] Hemoglobin (Bld) [Mass/Vol] 6.5 g/dL Abnormal 13.5-17.5 [facility] Comment on above: Result Comment: Resu lts Called To Isaac/Angela Mendez By _ And Read Back For Confirmation On 03/01/2023 07:50:53 EDTResults Verified By Repeat Analysis Performed By: #### 2 740941, 6711077, 19777379, 91311272, 71894633, 12786585, 8134957, 1777619 ####[facility] [address] [place] [address] MCH (RBC) [Entitic mass] 26.9 pg Low 27.0-34.0 [facility] Comment on above: Performed By: #### 2 879792, 4852011, 31306709, 20904315, 84213505, 65369959, 2424725, 8414558 ####[facility] [address] [place] [address] MCHC (RBC) [Mass/Vol] 32.6 g/dL Normal 31.4-36.0 [facility] Comment on above: Performed By: #### 2 016492, 2384710, 23031402, 68189616, 49967092, 61690574, 3310324, 3806884 ####[facility] [address] [place] [address] MCV (RBC) [Entitic vol] 82.3 fL Normal 80.0-100.0 [facility] Comment on above: Performed By: #### 2 863163, 2047070, 35018440, 10120813, 47138092, 72631896, 4320891, 3965874 ####[address] [address] Platelet mean volume (Bld) [Entitic vol] 8.9 fL Normal 6.4-10.8 [facility] Comment on above: Performed By: #### 2 134008, 3362110, 90649501, 81832950, 31987619, 31141890, 0921221, 5342936 ####[address] [address] Platelets (Bld) [#/Vol] 161.0 E9/L Normal 150.0-500.0 [facility] Comment on above: Performed By: #### 2 410893, 1820471, 77178789, 36225203, 97259088, 81454948, 1795594, 4210625 ####[address] [address] RBC (Bld) [#/Vol] 2.4 E12/L Low 4.3-5.9 [facility] Comment on above: Performed By: #### 2 192433, 7590528, 01044593, 52109502, 72435737, 59186001, 1385945, 4779391 ####[address] [address] WBC corrected for nucl RBC Auto (Bld) [#/Vol] 5.5 E9/L Normal 4.0-11.0 [facility] Comment on above: Performed By: #### 2 076833, 7520251, 51238741, 32626584, 51278720, 22801655, 2540351, 6284572 ####[facility] [address] [place] [address] CHEMISTRYOrdered By: SYSTEM SYSTEM on 03-01-2023 Ferritin [...] 03-01-2023 Albumin [Mass/Vol] 2.2 g/dL Low 3.3-5.0 [facility] Comment on above: Performed By: #### 2 019477, 7793104, 47661681, 24717858, 70856881, 16328800, 5160042, 6360350 ####[facility] [address] [place] [address] Albumin/Globulin (S) [Mass conc ratio] 0.5 Low 1.1-2.2 [facility] Comment on above: Performed By: #### 2 828794, 8246897, 95875148, 26435733, 18632002, 06345912, 5168250, 6024529 ####[facility] [address] [place] [address] ALP [Catalytic activity/Vol] 77 Int._Unit/L Normal 21-98 [facility] Comment on above: Performed By: #### 2 259535, 4418528, 70303301, 32842894, 93703109, 52711672, 9134766, 2136058 ####[facility] [address] [place] [address] ALT No additional P-5'-P [Catalytic activity/Vol] 24 Int._Unit/L Normal 6-46 [facility] Comment on above: Performed By: #### 2 287898, 1578787, 24687270, 01195251, 20227798, 41789277, 0119082, 2259019 ####[facility] [address] [place] [address] Anion gap [Moles/Vol] 8 mmol/L Normal 6-16 [facility] Comment on above: Performed By: #### 2 374389, 8317161, 48059852, 76070351, 13699554, 26970865, 3249868, 4204882 ####[facility] [address] [place] [address] AST [Catalytic activity/Vol] 34 Int._Unit/L Normal 5-43 [facility] Comment on above: Performed By: #### 2 858056, 2377633, 69530754, 74951370, 89202920, 77483002, 8512771, 7515985 ####[facility] [address] [place] [address] Bilirubin [Mass/Vol] 0.6 mg/dL Normal 0.0-1.1 [facility] Comment on above: Performed By: #### 2 788386, 1594969, 04854221, 30453866, 28499153, 16798039, 5640036, 2953357 ####[facility] [address] [place] [address] Calcium [Mass/Vol] 8.1 mg/dL Low 8.9-11.1 [facility] Comment on above: Performed By: #### 2 845240, 1650181, 63926556, 94686086, 97021809, 60184071, 4468262, 5456197 ####[facility] [address] [place] [address] Chloride [Moles/Vol] 99 mmol/L Low 101-111 [facility] Comment on above: Performed By: #### 2 965911, 7639498, 42859179, 89126003, 25653629, 78175699, 1402316, 3506751 ####[facility] [address] [place] [address] CO2 [Moles/Vol] 28 mmol/L Normal 21-31 [facility] Comment on above: Performed By: #### 2 508499, 6870687, 25774397, 48237198, 92556000, 70727700, 8976428, 5939897 ####[facility] [address] [place] [address] Creatinine [Mass/Vol] 0.5 mg/dL Normal 0.5-1.3 [facility] Comment on above: Performed By: #### 2 582054, 0486918, 68751983, 71237647, 64842198, 25496665, 7086787, 6237828 ####[facility] [address] [place] [address] Globulin (S) [Mass/Vol] 4.1 g/dL High 1.4-4.0 [facility] Comment on above: Performed By: #### 2 878574, 1417922, 58059510, 78043139, 44639514, 59643216, 7207081, 2635786 ####[facility] [address] [place] [address] Glucose [Mass/Vol] 110 mg/dL Normal 55-199 [facility] Comment on above: Result Comment: If t his glucose result represents a fasting glucose, interpretation should refer to the following reference range: 55-99 mg/dL Performed By: #### 2 586882, 1413205, 19593231, 37408839, 05267119, 29618027, 6532164, 9512987 ####[facility] [address] [place] [address] Potassium [Moles/Vol] 4.0 mmol/L Normal 3.5-5.3 [facility] Comment on above: Performed By: #### 2 150171, 5382248, 40515139, 83984141, 98468719, 90618042, 2437273, 4596863 ####[facility] [address] [place] [address] Protein [Mass/Vol] 6.3 g/dL Normal 6.0-7.8 [facility] Comment on above: Performed By: #### 2 154853, 8050678, 71749458, 32944671, 85025599, 14842242, 0230906, 7563784 ####[facility] [address] [place] [address] Sodium [Moles/Vol] 131 mmol/L Low 135-145 [facility] Comment on above: Performed By: #### 2 333622, 8532207, 14776752, 08137506, 19508848, 35906003, 8975238, 4660107 ####[facility] [address] [place] [address] Urea nitrogen [Mass/Vol] 22 mg/dL High 5-21 [facility] Comment on above: Performed By: #### 2 222988, 0527108, 38032142, 40288127, 68725653, 70029861, 3035249, 7491419 ####[facility] [address] [place] [address] Urea nitrogen/Creatinine [Mass ratio] 44 No Units High 10-20 [facility] Comment on above: Performed By: #### 2 070553, 9271568, 62656052, 33129327, 99054481, 33182691, 8977652, 5935241 ####[facility] [address] [place] [address] Capillary Glucose POCon 02-08 Glucose [Mass/Vol] 160 mg/dL High 55-99 [facility] Comment on above: Result Comment: Nuno MARIN Performed By: #### 2 04445030 ####[facility] [address] [place] [address] Glucose [Mass/Vol] 110 mg/dL High 55-99 [facility] Comment on above: Result Comment: Nuno MARIN Performed By: #### 2 50393074 ####[facility] [address] [place] [address] Glucose [Mass/Vol] 173 mg/dL High 55-99 [facility] Comment on above: Result Comment: Nuno MARIN Performed By: #### 2 72744103 ####[facility] [address] [place] [address] Glucose [Mass/Vol] 128 mg/dL High 55-99 [facility] Comment on above: Result Comment: Nuno MARIN Performed By: #### 2 21075057 ####[facility] [address] [place] [address] Consultation Noteon 03-01-20 Consultation Note Normal [facility] Comment on above: Result Comment: Elec tronically Signed By: Win GUARDADO, Ольга Roman\.br\Date and Time Signed: 03/01/23 07:00 EDT\.br\Electronically Co-Signed By: Dami WISE, Andrea\.br\Date and Time Co-Signed: 03/01/23 09:00 EDT HEMATOLOGYOrdered By: Fabi Herbert on 03-01-2023 Reticulocytes/100 RBC (Bld) 1.6 % High 0.5 - 1.5 % [facility] Comment on above: Result Comment: This Reticulocyte Count Has Been Corrected For Anemia Anisocytosis Ql (Bld) Present (03/01/23 5:30 AM) Normal [facility] HemeManSS Hypochromia Auto Ql (Bld) Present (03/01/23 5:30 AM) Normal [facility]eManSS Morphology Jah (Bld) [Interp] See Morphology (03/01/23 5:30 AM) Normal [facility] [facility] Interdisciplinary Note - Michelet e Manageron 03-01-2023 Interdisciplinary Note - Recreation Therapy Aide Normal [facility] Comment on above: Result Comment: Elec tronically Signed By: Chong GUARDADO, Leona\.br\Date and Time Signed: 03/01/23 11:25 EDT Interdisciplinary Note - Soc ial Workeron 03-01-2023 Interdisciplinary Note - Lockstitch Back Maker Normal [facility] Ironon 03-01-2023 Iron [Mass/Vol] 21 microgram/dL Low 35-153 [facility] Comment on above: Performed By: #### 1 [id number], 71246030, 4297297, 3018566, 7521386, 39136743, 6493099, 2229247, 9447795, 42883776 ####[facility] [address] [place] [address] LDHon 03-01-2023 LDH [Catalytic activity/Vol] 127 Int._Unit/L Normal 93-218 [facility] Comment on above: Performed By: #### 1 6771912, 43065108, 1058708, 4140741, 7822333, 16510957, 6345137, 7208887, 6529760, 07733733 ####[facility] [address] [place] [address] MRI Brain w/o Contraston MRI Brain w/o Contrast Normal [facility] Morphon 03-01-2023 Anisocytosis Ql (Bld) Present Normal [facility] Comment on above: Order Comment: Order Added by Discern Expert. Performed By: #### 2 744668, 6768291, 75786586, 02396476, 85598595, 65982390, 6531546, 2034819 ####[facility] [address] [place] [address] Hypochromia Auto Ql (Bld) Present Normal [facility] Comment on above: Order Comment: Order Added by Discern Expert. Performed By: #### 2 578972, 8777242, 18906543, 43106419, 02268902, 78450475, 7694462, 8321634 ####[facility] [address] [place] [address] Morphology Jah (Bld) [Interp] See Morphology Normal [facility] Comment on above: Order Comment: Order Added by Discern Expert. Performed By: #### 2 158060, 2916057, 61938452, 43861256, 00478448, 42519390, 4496362, 1610703 ####[facility] [address] [place] [address] Progress Note-Physicianon Progress Note-Physician Normal [facility] Comment on above: Result Comment: Elec tronically Signed By: Chong Coe M.D\.br\Date and Time Signed: 03/01/23 14:52 EDT Progress Note-Physician Normal [facility] Comment on above: Result Comment: Elec tronically Signed By: FAVIAN WISE, Shayy\.br\Date and Time Signed: 03/01/23 09:01 EDT RAD - MRI Screening Formon 0 03-01-2023 RAD - MRI Screening Form [id number]: 127 Normal [facility] RAD - MRI Screening Form [id number]:1 27 Normal [facility] RCOon 03-01-2023 # of Units 2 Invalid Interpretation Code [facility] Comment on above: Result Comment: 03/01 9:30 [id number] product ready and called to Emerald Castillo/ Isaac at 03/01/2023 09:29:57 EDT by BR. Performed By: #### 1 1505488 ####[facility] [address] [place] [address] Date Required 03/01/2023 Invalid Interpretation Code [facility] Comment on above: Performed By: #### 1 8699041 ####[facility] [address] [place] [address] Product Type None Required Invalid Interpretation Code [facility] Comment on above: Performed By: #### 1 7340772 ####[facility] [address] [place] [address] Retic Counton 03-01-2023 Reticulocytes/100 RBC (Bld) 1.6 % High 0.5-1.5 [facility] Comment on above: Result Comment: This Reticulocyte Count Has Been Corrected For Anemia Performed By: #### 1 7929383, 40055066, 2697137, 1928421, 8630882, 47945170, 7850717, 7448589, 0426866, 47955388 ####[facility] [address] [place] [address] TIBC Calculatedon 03-01-2023 Iron binding capacity [Mass/Vol] 290 microgram/dL Normal 250-400 [facility] Comment on above: Performed By: #### 1 3637394, 90783540, 7405868, 3097430, 7515506, 19967916, 1569849, 2633911, 6661907, 52246565 ####[facility] [address] [place] [address] Transferrin [Mass/Vol] 207 mg/dL Normal 200-370 [facility] Comment on above: Performed By: #### 1 8846254, 06688901, 4776638, 3724562, 2858183, 00188672, 0572228, 6014010, 7667278, 92156299 ####[facility] [address] [place] [address] TSH With T4fr Reflexon 03-01 TSH Qn 0.95 m[IU]/L Normal 0.34-5.60 [facility] Comment on above: Performed By: #### 2 774253, 3447956, 52825571, 06005383, 17182672, 35876969, 3916817, 3317391 ####[facility] [address] [place] [address] eGFRon 03-01-2023 GFR/1.73 sq M.predicted among non-blacks MDRD (S/P/Bld) [Vol rate/Area] 106 mL/min/1.73 m2 Normal >=59 [facility] Comment on above: Order Comment: Order added by Discern Expert. 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 Kidney failure is indicated at less than 15 mL/min/1.73m2. Performed By: #### 2 053056, 1718608, 89921501, 30689083, 61190028, 51998981, 3475281, 8808250 ####[facility] [address] [place] [address] Capillary Glucose POCon 02-08 Glucose [Mass/Vol] 212 mg/dL High 55-99 [facility] Comment on above: Result Comment: Nuno MARIN Performed By: #### 2 35878738 ####[facility] [address] [place] [address] Glucose [Mass/Vol] 134 mg/dL High 55-99 [facility] Comment on above: Result Comment: Nuno MARIN Performed By: #### 2 87588177 ####[facility] [address] [place] [address] Glucose [Mass/Vol] 157 mg/dL High 55-99 [facility] Comment on above: Result Comment: Nuno MARIN Performed By: #### 2 55657165 ####[facility] [address] [place] [address] Glucose [Mass/Vol] 126 mg/dL High 55-99 [facility] Comment on above: Result Comment: Nuno aranda RN/ Performed By: #### 2 63548505 ####[facility] [address] AveN[address] [place] [address] Interdisciplinary Note - Michelet e Manageron 02-28-2023 Interdisciplinary Note - Recreation Therapy Aide Normal [facility] Comment on above: Result Comment: Elec tronically Signed By: Chong GUARDADO, Leona\.br\Date and Time Signed: 02/28/23 12:21 EDT Interdisciplinary Note - Nut ritionon 02-28-2023 Interdisciplinary Note - Nutrition Pt reassessed. 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 otherwise, pt demonstrates poor appetite, but accepts supplements/nourishments . Goal not met, continue POC. Normal [facility] Comment on above: Result Comment: Elec tronically Signed By: Lucas MEADOWS, , Misty\.br\Date and Time Signed: 02/28/23 13:34 EDT BMPon 02-27-2023 Anion gap [Moles/Vol] 10 mmol/L Normal 6-16 [facility] Comment on above: Performed By: #### 1 8946035, 5613712 ####[facility] [address] [place] [address] Calcium [Mass/Vol] 8.1 mg/dL Low 8.9-11.1 [facility] Comment on above: Performed By: #### 1 2987224, 2935861 ####[facility] [address] [place] [address] Chloride [Moles/Vol] 98 mmol/L Low 101-111 [facility] Comment on above: Performed By: #### 1 7444066, 8619960 ####[facility] [address] [place] [address] CO2 [Moles/Vol] 28 mmol/L Normal 21-31 [facility] Comment on above: Performed By: #### 1 1415271, 0653192 ####[facility] [address] [place] [address] Creatinine [Mass/Vol] 0.6 mg/dL Normal 0.5-1.3 [facility] Comment on above: Performed By: #### 1 3577494, 8754002 ####[facility] [address] [place] [address] Glucose [Mass/Vol] 147 mg/dL Normal 55-199 [facility] Comment on above: Result Comment: If t his glucose result represents a fasting glucose, interpretation should refer to the following reference range: 55-99 mg/dL Performed By: #### 1 6657129, 0000496 ####[facility] [address] [place] [address] Potassium [Moles/Vol] 3.6 mmol/L Normal 3.5-5.3 [facility] Comment on above: Performed By: #### 1 4968684, 4921950 ####[facility] [address] [place] [address] Sodium [Moles/Vol] 132 mmol/L Low 135-145 [facility] Comment on above: Performed By: #### 1 7753331, 9494724 ####[facility] [address] [place] [address] Urea nitrogen [Mass/Vol] 28 mg/dL High 5-21 [facility] Comment on above: Performed By: #### 1 6236451, 3776466 ####[facility] [address] [place] [address] Urea nitrogen/Creatinine [Mass ratio] 47 No Units High 10-20 [facility] Comment on above: Performed By: #### 1 1102941, 6625136 ####[facility] [address] [place] [address] Capillary Glucose POCon 05 Glucose [Mass/Vol] 95 mg/dL Normal 55-99 [facility] Comment on above: Result Comment: Nuno aranda RN/ Performed By: #### 2 92349027 ####[facility] [address] [place] [address] Glucose [Mass/Vol] 115 mg/dL High 55-99 [facility] Comment on above: Result Comment: Nuno aranda RN/ Performed By: #### 2 15120304 ####[facility] [address] [place] [address] Glucose [Mass/Vol] 153 mg/dL High 55-99 [facility] Comment on above: Result Comment: Nuno aranda RN/ Performed By: #### 2 06551218 ####[facility] [address] [facility] [address] Glucose [Mass/Vol] 111 mg/dL High 55-99 [facility] Comment on above: Result Comment: Nuno aranda RN/ Performed By: #### 2 04544534 ####[facility] [address] [place] [address] Coding Queryon 02-27-2023 Coding Query Normal [facility] Coding Query Normal [facility] Interdisciplinary Note - Michelet e Manageron 02-27-2023 Interdisciplinary Note - Recreation Therapy Aide Normal [facility] Comment on above: Result Comment: Elec tronically Signed By: Sonia Morejon\.br\Date and Time Signed: 02/27/23 15:31 EDT Progress Note-Physicianon Progress Note-Physician Normal [facility] Comment on above: Result Comment: Elec tronically Signed By: Ramos HERRING MD\.br\Date and Time Signed: 02/27/23 10:31 EDT eGFRon 02-27-2023 GFR/1.73 sq M.predicted among non-blacks MDRD (S/P/Bld) [Vol rate/Area] 100 mL/min/1.73 m2 Normal >=59 [facility] Comment on above: Order Comment: Order added by Discern Expert. 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 Kidney failure is indicated at less than 15 mL/min/1.73m2. Performed By: #### 1 7226158, 6712737 ####[facility] [address] [place] [address] CT Head or Brain w/o Contras ton 02-26-2023 CT Head or Brain w/o Contrast Normal [facility] CT Spine Cervical w/o Contra ston 02-26-2023 CT Spine Cervical w/o Contrast Normal [facility] Capillary Glucose POCon 02-08 Glucose [Mass/Vol] 127 mg/dL High 55-99 [facility] Comment on above: Result Comment: Nuno MARIN Performed By: #### 2 49566642 ####[facility] [address] AveN[facility] [place] [address] Glucose [Mass/Vol] 121 mg/dL High 55- [facility] Comment on above: Result Comment: Nuno MARIN Performed By: #### 2 54412075 ####[facility] [address] [place] [address] Glucose [Mass/Vol] 169 mg/dL High - [facility] Comment on above: Result Comment: Nuno MARIN Performed By: #### 2 73609518 ####[facility] [address] [place] [address] Glucose [Mass/Vol] 140 mg/dL [place] [address]- [facility] Comment on above: Result Comment: Nuno MARIN Performed By: #### 2 47294625 ####[facility] [address] [place] [address] Glucose [Mass/Vol] 169 mg/dL High 55-99 [facility] Comment on above: Performed By: #### 2 33996691 ####[facility] [address]Nor[place] [address] Interdisciplinary Note - Michelet e Manageron 02-26-2023 Interdisciplinary Note - Recreation Therapy Aide Normal [facility] Comment on above: Result Comment: Elec tronically Signed By: Sonia Morejon\.br\Date and Time Signed: 02/26/23 10:51 EDT Progress Note-Physicianon Progress Note-Physician Normal [facility] Comment on above: Result Comment: Elec tronically Signed By: NEVAEH WISE, Ramos\Otiliabr\Date and Time Signed: 02/26/23 10:17 EDT C Urineon 02-25-2023 Bacteria identified Cx Nom (U) Normal [facility] Comment on above: Performed By: #### 1 0121247, 7684323 ####[facility] [address] [place] [address] Capillary Glucose POCon 02-07 Glucose [Mass/Vol] 133 mg/dL High 55-99 [facility] Comment on above: Result Comment: Nuno aranda RN/ Performed By: #### 2 86852627 ####[facility] [address] [place] [address] Glucose [Mass/Vol] 91 mg/dL Normal 55-99 [facility] Comment on above: Result Comment: Sayra francia Meter Performed By: #### 2 26743616 ####[facility] [address] [place] [address] Glucose [Mass/Vol] 155 mg/dL High 55-99 [facility] Comment on above: Result Comment: Nuno aranda RN/ Performed By: #### 2 81656044 ####[facility] [address] [place] [address] Consultation Noteon 02-26-20 Consultation Note Normal [facility] Comment on above: Result Comment: Elec tronically Signed By: Chong Coe M.D\.br\Date and Time Signed: 02/25/23 09:21 EDT Interdisciplinary Note - Michelet e Manageron 02-25-2023 Interdisciplinary Note - Recreation Therapy Aide Normal [facility] Comment on above: Result Comment: Elec tronically Signed By: Дмитрий GUARDADO, Alla\.br\Date and Time Signed: 02/25/23 13:11 EDT Interdisciplinary Note - Ashley n 02-25-2023 Interdisciplinary Note - OT Normal [facility] Interdisciplinary Note - PTo n 02-25-2023 Interdisciplinary Note - PT Normal [facility] Progress Note-Physicianon Progress Note-Physician Normal [facility] Comment on above: Result Comment: Elec tronically Signed By: Manav Tinajero MD\.br\Date and Time Signed: 02/25/23 21:58 EDT Progress Note-Physician Normal [facility] Comment on above: Result Comment: Elec tronically Signed By: NEVAEH WISE, Ramos\.br\Date and Time Signed: 02/25/23 11:37 EDT Auto Diffon 02-24-2023 Basophils/100 WBC (Bld) 0.5 % Normal 0.0-2.0 [facility] Comment on above: Order Comment: Order Added by Discern Expert. Performed By: #### 2 321755, 8750764, 4846217, 662618204, 32523640, 2419838 ####[facility] [address] [place] [address] Basophils/Leukocytes Auto (Bld) [Pure # fraction] 0.0 E9/L Normal 0.0-0.2 [facility] Comment on above: Order Comment: Order Added by Discern Expert. Performed By: #### 2 994552, 8922929, 4871623, 539700639, 99963551, 8748531 ####[facility] [address] [place] [address] Eosinophils/100 WBC (Bld) 0.4 % Normal 0.0-8.0 [facility] Comment on above: Order Comment: Order Added by Discern Expert. Performed By: #### 2 236268, 0860163, 2072499, 378720051, 96321684, 3803601 ####[facility] [address] [place] [address] Eosinophils/Leukocytes Auto (Bld) [Pure # fraction] 0.0 E9/L Normal 0.0-0.5 [facility] Comment on above: Order Comment: Order Added by Discern Expert. Performed By: #### 2 850719, 2959044, 4914286, 757811314, 18498285, 3493290 ####[facility] [address] [place] [address] Lymphocytes/100 WBC (Bld) 6.2 % Low 14.0-50.0 [facility] Comment on above: Order Comment: Order Added by Discern Expert. Performed By: #### 2 107026, 7237541, 1732051, 730360993, 46418914, 2389869 ####[facility] [address] [place] [address] Lymphocytes/Leukocytes Auto (Bld) [Pure # fraction] 0.4 E9/L Low 1.0-4.0 [facility] Comment on above: Order Comment: Order Added by Discern Expert. Performed By: #### 2 164786, 4827198, 8762989, 100263919, 98976583, 0336985 ####[place] [place] [address] Monocytes/100 WBC (Bld) 12.6 % Normal 4.0-14.0 [facility] Comment on above: Order Comment: Order Added by Discern Expert. Performed By: #### 2 816559, 8592261, 5688933, 975615273, 14812043, 2847578 ####[address] [address] Monocytes/Leukocytes Auto (Bld) [Pure # fraction] 0.8 E9/L Normal 0.2-1.0 [facility] Comment on above: Order Comment: Order Added by Discern Expert. Performed By: #### 2 650102, 5022363, 9316025, 008240720, 62592721, 4130510 ####[facility] [address] [place] [address] Neutrophils/100 WBC (Bld) 80.3 % High 36.0-75.0 [facility] Comment on above: Order Comment: Order Added by Discern Expert. Performed By: #### 2 008964, 6141128, 6628273, 583336952, 79696928, 0492225 ####[facility] [address] [place] [address] Neutrophils/Leukocytes Auto (Bld) [Pure # fraction] 5.4 E9/L Normal 2.0-7.5 [facility] Comment on above: Order Comment: Order Added by Discern Expert. Performed By: #### 2 027969, 2235052, 2968598, 278896862, 47308002, 5458225 ####[facility] [address] [place] [address] BMPon 02-24-2023 Anion gap [Moles/Vol] 10 mmol/L Normal 6-16 [facility] Comment on above: Performed By: #### 2 253179, 7335235, 4307422, 972749429, 64403492, 6220598 ####[facility] [address] [place] [address] Calcium [Mass/Vol] 8.1 mg/dL Low 8.9-11.1 [facility] Comment on above: Performed By: #### 2 753090, 7947084, 9468197, 634696046, 14358268, 6976830 ####[facility] [address] [place] [address] Chloride [Moles/Vol] 98 mmol/L Low 101-111 [facility] Comment on above: Performed By: #### 2 188183, 7411849, 3588175, 140892622, 53900781, 3939383 ####[facility] [address] [place] [address] CO2 [Moles/Vol] 25 mmol/L Normal 21-31 [facility] Comment on above: Performed By: #### 2 603290, 0347485, 3279513, 822672002, 58495302, 8693294 ####[facility] [address] [place] [address] Creatinine [Mass/Vol] 0.6 mg/dL Normal 0.5-1.3 [facility] Comment on above: Performed By: #### 2 491671, 6406592, 8101316, 468698339, 09952052, 3241058 ####[facility] [address] [place] [address] Glucose [Mass/Vol] 120 mg/dL Normal 55-199 [facility] Comment on above: Result Comment: If t his glucose result represents a fasting glucose, interpretation should refer to the following reference range: 55-99 mg/dL Performed By: #### 2 951832, 1290499, 9517876, 072024400, 96109261, 2495867 ####[facility] [address] [place] [address] Potassium [Moles/Vol] 3.9 mmol/L Normal 3.5-5.3 [facility] Comment on above: Performed By: #### 2 439575, 9163149, 7598918, 357592367, 07395569, 0999683 ####[facility] [address] [place] [address] Sodium [Moles/Vol] 129 mmol/L Low 135-145 [facility] Comment on above: Performed By: #### 2 392966, 7107601, 0711539, 450653657, 84182165, 6206771 ####[facility] [address] [place] [address] Urea nitrogen [Mass/Vol] 16 mg/dL Normal 5-21 [facility] Comment on above: Performed By: #### 2 733660, 0788512, 5646144, 949932792, 60024928, 4517317 ####[facility] [address] [place] [address] Urea nitrogen/Creatinine [Mass ratio] 27 No Units High 10-20 [facility] Comment on above: Performed By: #### 2 221521, 4172069, 8362223, 232458634, 49432970, 0692393 ####[facility] [address] [place] [address] CBC w/ Auto Diffon 3 Erythrocyte distribution width (RBC) [Ratio] 19.1 % High 10.9-14.2 [facility] Comment on above: Performed By: #### 2 432356, 0618018, 4319808, 730218729, 12237373, 1816500 ####[address] [place] [address] Hematocrit (Bld) [Volume fraction] 22.3 % Low 37.7-49.0 [facility] Comment on above: Performed By: #### 2 346005, 9666548, 9502688, 614387815, 47102988, 6882759 ####[address] [address] Hemoglobin (Bld) [Mass/Vol] 7.3 g/dL Low 13.5-17.5 [facility] Comment on above: Performed By: #### 2 187293, 0651257, 4507104, 606169887, 50174740, 6368582 ####[address] [address] MCH (RBC) [Entitic mass] 27.3 pg Normal 27.0-34.0 [facility] Comment on above: Performed By: #### 2 143206, 0169098, 0363121, 034147663, 16864609, 4006067 ####[address] [address] MCHC (RBC) [Mass/Vol] 32.6 g/dL Normal 31.4-36.0 [facility] Comment on above: Performed By: #### 2 219569, 2332853, 6769017, 033986875, 11591618, 9962900 ####[address] [address] MCV (RBC) [Entitic vol] 83.8 fL Normal 80.0-100.0 [facility] Comment on above: Performed By: #### 2 720818, 1394221, 2615008, 324601900, 33468666, 1875922 ####[facility] [address] [place] [address] Platelet mean volume (Bld) [Entitic vol] 8.8 fL Normal 6.4-10.8 [facility] Comment on above: Performed By: #### 2 623841, 4419023, 7732702, 830408894, 20313772, 9004590 ####[facility] [address] [place] [address] Platelets (Bld) [#/Vol] 192.0 E9/L Normal 150.0-500.0 [facility] Comment on above: Performed By: #### 2 976275, 8041843, 1889467, 107530352, 03866356, 1903163 ####[facility] [address] [place] [address] RBC (Bld) [#/Vol] 2.7 E12/L Low 4.3-5.9 [facility] Comment on above: Performed By: #### 2 151594, 5516365, 5842454, 915756708, 65819089, 4829384 ####[facility] [address] [place] [address] WBC corrected for nucl RBC Auto (Bld) [#/Vol] 6.7 E9/L Normal 4.0-11.0 [facility] Comment on above: Performed By: #### 2 606066, 3458049, 8949383, 419898506, 90171307, 4509066 ####[facility] [address] [place] [address] CHEMISTRYOrdered By: Caity Roman on 02-24-2023 CK [Catalytic activity/Vol] 21 [iU]/d Normal 14 - 261 Int._Unit/L [facility] Remisol CHEMISTRYOrdered By: Fidel Peterson on 02-24-2023 HbA1c (Bld) [Mass fraction] 5.2 % Normal <=5.9% [facility] ChemAutoSS CKon 02-24-2023 CK [Catalytic activity/Vol] 21 Int._Unit/L Normal 14-261 [facility] Comment on above: Performed By: #### 2 624019, 2710709, 0253463, 656866519, 04640271, 3548787 ####[facility] [address] [place] [address] Capillary Glucose POCon 02-07 Glucose [Mass/Vol] 149 mg/dL High 55-99 [facility] Comment on above: Result Comment: Nuno MARIN Performed By: #### 2 32817189 ####[facility] [address] [place] [address] Glucose [Mass/Vol] 129 mg/dL High 55-99 [facility] Comment on above: Result Comment: Nuno MARIN Performed By: #### 2 59902045 ####[facility] [address] [place] [address] Glucose [Mass/Vol] 123 mg/dL High - [facility] Comment on above: Result Comment: Nuno MARIN Performed By: #### 2 09329037 ####[facility] [address] [place] [address] Glucose [Mass/Vol] 211 mg/dL High 55- [facility] Comment on above: Result Comment: Nuno MARIN Performed By: #### 2 75008513 ####[facility] [address] [place] [address] LrbL1ohq 02-24-2023 HbA1c (Bld) [Mass fraction] 5.2 % Normal <=5.9 [facility] Comment on above: Performed By: #### 2 282218, 3774480, 0729551, 378114224, 12592047, 8370716 ####[facility] [address] [place] [address] Interdisciplinary Note - Michelet e Manageron 02-24-2023 Interdisciplinary Note - Recreation Therapy Aide Normal [facility] Comment on above: Result Comment: Elec tronically Signed By: Sonia Morejon\.br\Date and Time Signed: 02/24/23 12:26 EDT Interdisciplinary Note - Nut ritionon 02-24-2023 Interdisciplinary Note - Nutrition Normal [facility] Comment on above: Result Comment: Elec tronically Signed By: Lucas MEADOWS, , Misty\.br\Date and Time Signed: 02/24/23 14:00 EDT\.br\Electronically Co-Signed By: Ramos HERRING MD\.br\Date and Time Co-Signed: 02/27/23 18:24 EDT Message from Medicareon 02-07 Message from Medicare [id number] :127 Normal [facility] Progress Note-Physicianon Progress Note-Physician Normal [facility] Comment on above: Result Comment: Elec tronically Signed By: Ramos HERRING MD\.br\Date and Time Signed: 02/24/23 11:12 EDT UA With Cult Reflexon 2022 UA Spec Desc Catheter Normal [facility] Comment on above: Result Comment: cath . specimen Performed By: #### 1 [id number], 7794476 ####[facility] [address] [place] [address] eGFRon 02-24-2023 GFR/1.73 sq M.predicted among non-blacks MDRD (S/P/Bld) [Vol rate/Area] 100 mL/min/1.73 m2 Normal >=59 [facility] Comment on above: Order Comment: Order added by Discern Expert. 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 Kidney failure is indicated at less than 15 mL/min/1.73m2. Performed By: #### 2 221837, 1016305, 8629159, 224966949, 45358000, 9310340 ####[facility] [address] [place] [address] Auto Diffon 02-23-2023 Basophils/100 WBC (Bld) 0.8 % Normal 0.0-2.0 [facility] Comment on above: Order Comment: Order Added by Discern Expert. Performed By: #### 2 495397, 6319101, 6523446, 46846387, 98164060, 96608503, 8642049 ####[address] [place] [address] Basophils/Leukocytes Auto (Bld) [Pure # fraction] 0.1 E9/L Normal 0.0-0.2 [facility] Comment on above: Order Comment: Order Added by Discern Expert. Performed By: #### 2 979567, 3179583, 3214332, 80781229, 41404555, 96482814, 0343345 ####[address] [address] Eosinophils/100 WBC (Bld) 0.7 % Normal 0.0-8.0 [facility] Comment on above: Order Comment: Order Added by Discern Expert. Performed By: #### 2 694273, 8981453, 2121754, 58123362, 04024715, 56580772, 0744110 ####[address] [address] Eosinophils/Leukocytes Auto (Bld) [Pure # fraction] 0.0 E9/L Normal 0.0-0.5 [facility] Comment on above: Order Comment: Order Added by Discern Expert. Performed By: #### 2 001970, 2446391, 6216330, 29465357, 78756052, 97617567, 9553995 ####[address] [address] Lymphocytes/100 WBC (Bld) 4.0 % Low 14.0-50.0 [facility] Comment on above: Order Comment: Order Added by Discern Expert. Performed By: #### 2 782656, 3903621, 6985638, 15201350, 27550835, 98281415, 6130693 ####[address] [address] Lymphocytes/Leukocytes Auto (Bld) [Pure # fraction] 0.3 E9/L Low 1.0-4.0 [facility] Comment on above: Order Comment: Order Added by Discern Expert. Performed By: #### 2 108038, 8153784, 5160201, 11490311, 41951875, 34112202, 1619053 ####[facility] [address] [place] [address] Monocytes/100 WBC (Bld) 13.0 % Normal 4.0-14.0 [facility] Comment on above: Order Comment: Order Added by Discern Expert. Performed By: #### 2 693007, 9144579, 9919536, 78380282, 50773028, 76023533, 2441866 ####[address] [place] [address] Monocytes/Leukocytes Auto (Bld) [Pure # fraction] 1.0 E9/L Normal 0.2-1.0 [facility] Comment on above: Order Comment: Order Added by Discern Expert. Performed By: #### 2 774256, 8446688, 1647969, 02927020, 20074170, 35192930, 8501044 ####[address] [address] Neutrophils/100 WBC (Bld) 81.5 % High 36.0-75.0 [facility] Comment on above: Order Comment: Order Added by Discern Expert. Performed By: #### 2 197020, 0095316, 3714237, 75067099, 21908204, 04487971, 8908694 ####[address] [place] [address] Neutrophils/Leukocytes Auto (Bld) [Pure # fraction] 6.1 E9/L Normal 2.0-7.5 [facility] Comment on above: Order Comment: Order Added by Discern Expert. Performed By: #### 2 052158, 2529087, 1359141, 00560751, 88279646, 04845482, 9878744 ####[address] [place] [address] BMPon 02-23-2023 Creatinine [Mass/Vol] 0.7 mg/dL Normal 0.5-1.3 [facility] Comment on above: Performed By: #### 2 948823, 9932667, 1244368, 83999577, 50122613, 42581573, 3668214 ####[facility] [address] [place] [address] Urea nitrogen [Mass/Vol] 17 mg/dL Normal 5-21 [facility] Comment on above: Performed By: #### 2 060002, 4421266, 2204969, 46108483, 10911816, 99519126, 2470951 ####[facility] [address] [place] [address] Urea nitrogen/Creatinine [Mass ratio] 24 No Units High 10-20 [facility] Comment on above: Performed By: #### 2 044925, 1450451, 8844409, 39537755, 24220864, 79530329, 5682076 ####[facility] [address] [place] [address] Anion gap [Moles/Vol] 12 mmol/L Normal 6-16 [facility] Comment on above: Performed By: #### 2 038707, 5494368, 1179110, 72799216, 63296522, 07322051, 6477698 ####[facility] [address] [place] [address] Calcium [Mass/Vol] 8.3 mg/dL Low 8.9-11.1 [facility] Comment on above: Performed By: #### 2 755818, 2815823, 6395096, 41054712, 29185549, 39304888, 8126130 ####[facility] [address] [place] [address] Chloride [Moles/Vol] 94 mmol/L Low 101-111 [facility] Comment on above: Performed By: #### 2 968053, 1515262, 1137285, 88571265, 94187145, 85560102, 2831802 ####[facility] [address] [place] [address] CO2 [Moles/Vol] 25 mmol/L Normal 21-31 [facility] Comment on above: Performed By: #### 2 964298, 7383169, 0092266, 93733971, 07991446, 53255709, 1168502 ####[facility] [address] [place] [address] Glucose [Mass/Vol] 128 mg/dL Normal 55-199 [facility] Comment on above: Result Comment: If t his glucose result represents a fasting glucose, interpretation should refer to the following reference range: 55-99 mg/dL Performed By: #### 2 437886, 8645708, 1284590, 72384144, 85419450, 56234530, 1747302 ####[facility] [address] [place] [address] Potassium [Moles/Vol] 4.1 mmol/L Normal 3.5-5.3 [facility] Comment on above: Performed By: #### 2 149280, 8893708, 6228411, 93382369, 02918788, 96209710, 3154186 ####[facility] [address] [place] [address] Sodium [Moles/Vol] 127 mmol/L Low 135-145 [facility] Comment on above: Performed By: #### 2 212885, 3238076, 4089782, 99929137, 22130241, 74887633, 6234663 ####[facility] [address] [place] [address] CBC w/ Auto Diffon 3 Erythrocyte distribution width (RBC) [Ratio] 19.6 % High 10.9-14.2 [facility] Comment on above: Performed By: #### 2 908249, 5433837, 6581729, 17103567, 76103375, 52602096, 9920402 ####[facility] [address] [place] [address] Hematocrit (Bld) [Volume fraction] 23.8 % Low 37.7-49.0 [facility] Comment on above: Performed By: #### 2 776509, 8635110, 3057331, 58840473, 09693239, 93780990, 4580013 ####[facility] [address] [place] [address] Hemoglobin (Bld) [Mass/Vol] 7.4 g/dL Low 13.5-17.5 [facility] Comment on above: Performed By: #### 2 639489, 2172880, 0691336, 13056061, 94106317, 49854771, 1316328 ####[facility] [address] [place] [address] MCH (RBC) [Entitic mass] 26.6 pg Low 27.0-34.0 [facility] Comment on above: Performed By: #### 2 422474, 8547297, 9238970, 43022400, 31588748, 03327732, 9063367 ####[address] [address] MCHC (RBC) [Mass/Vol] 31.1 g/dL Low 31.4-36.0 [facility] Comment on above: Performed By: #### 2 713034, 3485791, 7366124, 19454288, 02436182, 65067572, 0299986 ####[address] [address] MCV (RBC) [Entitic vol] 85.5 fL Normal 80.0-100.0 [facility] Comment on above: Performed By: #### 2 043229, 6206222, 2759412, 87897643, 47558478, 86736207, 0882750 ####[address] [address] Platelet mean volume (Bld) [Entitic vol] 8.3 fL Normal 6.4-10.8 [facility] Comment on above: Performed By: #### 2 109855, 6046875, 9319669, 49844761, 83386286, 18098319, 1043627 ####[address] [place] [address] Platelets (Bld) [#/Vol] 188.0 E9/L Normal 150.0-500.0 [facility] Comment on above: Performed By: #### 2 040543, 6137716, 0344408, 51933902, 37560036, 71545867, 8356372 ####[facility] [address] [place] [address] RBC (Bld) [#/Vol] 2.8 E12/L Low 4.3-5.9 [facility] Comment on above: Performed By: #### 2 449872, 6039530, 3571358, 21837331, 32174648, 50241355, 9476631 ####[facility] [address] [place] [address] WBC corrected for nucl RBC Auto (Bld) [#/Vol] 7.4 E9/L Normal 4.0-11.0 [facility] Comment on above: Performed By: #### 2 345435, 7859772, 6114275, 84354346, 44409688, 32199060, 7666107 ####[facility] [address] [place] [address] CHEMISTRYOrdered By: SYSTEM SYSTEM on 02-23-2023 Amphetamines [...] 33.4 s Normal 25.1 - 36.5 second(s) [facility] Auto Coag INR Coag (PPP) [Relative time] 1.3 {INR} Invalid Interpretation Code [facility] Auto Coag PT Coag (PPP) [Time] 14.4 s High 9.4 - 1 2.5 second(s) [facility] Auto Coag CT Head or Brain w/o Contras ton 02-23-2023 CT Head or Brain w/o Contrast Normal [facility] Capillary Glucose POCon 02-07 Glucose [Mass/Vol] 100 mg/dL High 55-99 [facility] Comment on above: Result Comment: Nuno aranda RN/ Performed By: #### 2 25698965 ####[facility] [address] [place] [address] Glucose [Mass/Vol] 168 mg/dL High 55-99 [facility] Comment on above: Result Comment: Nuno MARIN Performed By: #### 2 41965743 ####[facility] [address] [place] [address] Consent for Treatmenton 02-07 Consent for Treatment [id number]: 127 Normal [facility] ED Clinical Summaryon 2022 ED Clinical Summary Normal [facility] ED Note-Physicianon 02-24-20 23 ED Note-Physician Normal [facility] Comment on above: Result Comment: Elec tronically Signed By: Luz WISE, Kwasi\.br\Date and Time Signed: 02/23/23 14:17 EDT ED Patient Education Noteon 02-23-2023 ED Patient Education Note Normal [facility] ED Patient Summaryon 023 ED Patient Summary Normal [facility] Ethanolon 02-23-2023 Ethanol [Mass/Vol] mg/dL Normal <=7 [facility] Comment on above: Performed By: #### 2 208611 ####[facility] [address] [place] [address] Hep Func Panelon 02-23-2023 Albumin [Mass/Vol] 2.4 g/dL Low 3.3-5.0 [facility] Comment on above: Performed By: #### 2 560647, 9132525, 0105576, 76352860, 85935446, 95802129, 1272068 ####[facility] [address] [place] [address] Albumin/Globulin (S) [Mass conc ratio] 0.6 Low 1.1-2.2 [facility] Comment on above: Performed By: #### 2 500564, 9143112, 4542655, 88370388, 44271698, 84832889, 4410721 ####[facility] [address] [place] [address] ALP [Catalytic activity/Vol] 91 Int._Unit/L Normal 21-98 [facility] Comment on above: Performed By: #### 2 725212, 2073029, 6217432, 35117855, 54893553, 36062918, 4557383 ####[facility] [address] [place] [address] ALT No additional P-5'-P [Catalytic activity/Vol] 27 Int._Unit/L Normal 6-46 [facility] Comment on above: Performed By: #### 2 285757, 6781795, 0907241, 82072614, 83155232, 74531838, 9632426 ####[facility] [address] [place] [address] AST [Catalytic activity/Vol] 21 Int._Unit/L Normal 5-43 [facility] Comment on above: Performed By: #### 2 349817, 3162233, 7931347, 49685920, 13005432, 90971937, 0351346 ####[facility] [address] [place] [address] Bilirubin [Mass/Vol] 0.7 mg/dL Normal 0.0-1.1 [facility] Comment on above: Performed By: #### 2 097440, 2745624, 3286273, 10818008, 60352152, 99160300, 7936752 ####[facility] [address] [place] [address] Bilirubin.direct [Mass/Vol] 0.2 mg/dL Normal 0.1-0.4 [facility] Comment on above: Performed By: #### 2 627304, 4617569, 1952893, 47353022, 99508922, 30314793, 1554109 ####[facility] [address] [place] [address] Bilirubin.indirect [Mass or moles/Vol] 0.5 mg/dL Normal 0.1-0.9 [facility] Comment on above: Performed By: #### 2 046074, 1308333, 9816940, 60588049, 24066899, 94592785, 0357095 ####[facility] [address] [place] [address] Globulin (S) [Mass/Vol] 4.4 g/dL High 1.4-4.0 [facility] Comment on above: Performed By: #### 2 884339, 0514754, 2255636, 89845103, 58375278, 89930747, 9064469 ####[facility] [address] [place] [address] Protein [Mass/Vol] 6.8 g/dL Normal 6.0-7.8 [facility] Comment on above: Performed By: #### 2 494090, 4796615, 1259408, 53732585, 12632417, 09246697, 7314115 ####[facility] [address] [place] [address] Laboratory - Microbiology an d Antimicrobial susceptibilityOrdered By: Sabiha Ayala on 02-23-2023 Bacteria identified Cx Nom (U) No growth at 2 days. [facility] Monitor Recordon 02-23-2023 Monitor Record [id number]#[id number] :127 Normal [facility] No Panel InformationOrdered By: Meaghan Pinzon on 02-23-2023 Blood Culture Charcoal No growth at 7 days. [facility] Blood Culture Charcoal No growth at 7 days. [facility] PT & PTTon 02-23-2023 aPTT Coag (PPP) [Time] 33.4 second(s) Normal 25.1-36.5 [facility] Comment on above: Result Comment: Para meter [...] the same coagulation reagent and instrumentation as [facility]. Currently there are no coagulation studies available worldwide for children to 14 days, and no normal ranges. Heparin therapeutic range (represented by Anti-Factor Xa activity of 0.2 - 0.4 U/mL) corresponds to PTT of 56.6 - 109.0 sec. Performed By: #### 2 200570, 0752527, 9438178, 57145903, 00249150, 86136832, 7619879 ####[facility] [address] [place] [address] INR Coag (PPP) [Relative time] 1.3 {INR} Invalid Interpretation Code [facility] Comment on above: Result Comment: INR results are specifically intended to assess patients stabilized on long-term Anticoagulation therapy suggested INR?s ?Less Intensive Anticoagulation? 2.0 ? 3.0Conventional Range 3.0 ? 4.5 Performed By: #### 2 615325, 9380063, 5031434, 29245468, 85652559, 95826761, 7215211 ####[facility] [address] [place] [address] PT Coag (PPP) [Time] 14.4 second(s) High 9.4-12.5 [facility] Comment on above: Result Comment: 15 d [...] the same coagulation reagent and instrumentation as [facility]. Currently there are no coagulation studies available worldwide for children to 14 days, and no normal ranges. Performed By: #### 2 635381, 1739610, 0846452, 56662075, 48443001, 55114629, 0208647 ####[facility] [address] [place] [address] Troponin 0 Hr.on 02-23-2023 Troponin I.cardiac [Mass/Vol] 6.20 pg/mL Low 15.90-38.40 [facility] Comment on above: Result Comment: The 95% CI (Confidence Interval) PPV (Positive Predictive Value) for myocardial infarction in females is 38 pg/mL, in males 51 pg/mL. The results should be used in conjunction with clinical conditions of myocardial infarction.(Access High Sensitivity Troponin I Instructions For Use, Daljit Lawrence, May 2018) Performed By: #### 2 316118, 9304984, 7352935, 34272318, 14533346, 69546933, 6522992 ####[facility] [address] [place] [address] U Drug Screenon 02-23-2023 Tetrahydrocannabinol Screen method >50 ng/mL Ql (U) Positive Abnormal Negative [facility] Comment on above: Result Comment: Crit ical Result verified by repeat analysis\Critical Result UD_THC:POS Called to ANGIE JEAN AT by RAJAN HERBERT And Read Back For Confirmation at: 02/23/2023 12:38:36Negative Cutoff: <50 ng/mL Performed By: #### 2 199027 ####[facility] [address] [facility] [place] [address] Amphetamines Screen method >1000 ng/mL Ql (U) Negative Normal Negative [facility] Comment on above: Result Comment: Nega tive Cutoff: <1000 ng/mL Performed By: #### 2 389402 ####[facility] [address] [place] [address] Barbiturates Screen Ql (U) Negative Normal Negative [facility] Comment on above: Result Comment: Nega tive Cutoff: <200 ng/mL Performed By: #### 2 456764 ####[facility] [address] [place] [address] Benzodiazepines Ql (U) Negative Normal Negative [facility] Comment on above: Result Comment: Nega tive Cutoff: <200 ng/mL Performed By: #### 2 597713 ####[facility] [address] [place] [address] Cocaine Ql (U) Negative Normal Negative [facility] Comment on above: Result Comment: Nega tive Cutoff: <300 ng/mL Performed By: #### 2 930417 ####[facility] [address] [place] [address] Opiates Screen Ql (U) Negative Normal Negative Fis [facility] Comment on above: Result Comment: Nega tive Cutoff: <300 ng/mL Performed By: #### 2 756561 ####[facility] [address] [place] [address] Phencyclidine Screen method >25 ng/mL Ql (U) Negative Normal Negative [facility] Comment on above: Result Comment: Nega tive Cutoff: <25 ng/mLThese drug screen results are to be used for medical (i.e., treatment) purposes only. Unconfirmed drug screening results must not be used for non-medical purposes (e.g., employment testing, legal testing). Performed By: #### 2 485868 ####[facility] [address] [place] [address] UA With Cult Reflexon 2022 Bacteria LM Ql (Urine sed) 2+ /HPF Abnormal Trace [facility] Comment on above: Performed By: #### 1 6773461, 1491776 ####[facility] [address] [place] [address] Bilirubin Ql (U) Negative Normal Negative [facility] Comment on above: Performed By: #### 1 2104667, 4318412 ####[facility] [address] [place] [address] Clarity (U) CLEAR Normal Clear [facility] Comment on above: Performed By: #### 1 9388645, 7110142 ####[address] [address] Color (U) YELLOW Normal Yellow [facility] Comment on above: Performed By: #### 1 8380739, 5175973 ####[address] [address] Epithelial cells.squamous LM.HPF (Urine sed) [#/Area] 0-2 Normal 0-2 [facility] Comment on above: Performed By: #### 1 3181769, 2272406 ####[facility] [address] [place] [address] Fine Granular Casts LM Ql (Urine sed) 0-3 Normal [facility] Comment on above: Performed By: #### 1 2317626, 8089025 ####[address] [address] Glucose Test strip (U) [Mass/Vol] Negative Normal Negative [facility] Comment on above: Performed By: #### 1 4823592, 9844506 ####[facility] [address] [place] [address] Hemoglobin Ql (U) 2+ Abnormal Negative [facility] Comment on above: Performed By: #### 1 3576680, 0456963 ####[facility] [address] [place] [address] Ketones (U) [Mass/Vol] Negative Normal Negative [facility] Comment on above: Performed By: #### 1 3408478, 3817234 ####[facility] [address] [place] [address] [place].plasma/[place]. RBC (Bld) [Mass ratio] 0-3 Normal 0-3 [facility] Comment on above: Performed By: #### 1 3605542, 1905576 ####[address] [address] Mucus Ql (Urine sed) TRACE Normal Fish er [facility] Comment on above: Performed By: #### 1 4703260, 4886654 ####[address] [address] Nitrite Ql (U) Negative Normal Negative [facility] Comment on above: Performed By: #### 1 5414354, 5837972 ####[address] [address] pH (U) 6.5 [pH] Invalid Interpretation Code 5.0-9.0 [facility] Comment on above: Performed By: #### 1 6990066, 0775136 ####[address] [address] Protein (U) [Mass/Vol] 2+ Abnormal Negative [facility] Comment on above: Performed By: #### 1 9606054, 0244347 ####[address] [address] Specific gravity (U) [Rel density] 1.020 Invalid Interpretation Code 1.005-1.030 [facility] Comment on above: Performed By: #### 1 6818831, 7358635 ####[address] [address] Urobilinogen Qn (U) 0.2 {Mercedes'U}/dL Normal 0.0-1.0 [facility] Comment on above: Performed By: #### 1 0268321, 5210551 ####[address] [address] WBC Auto Ql (U) Negative Normal Negative [facility] Comment on above: Performed By: #### 1 5306552, 8513457 ####[facility] [address] [place] [address] WBC LM.HPF (Urine sed) [#/Area] 0-5 Normal 0-5 [facility] Comment on above: Performed By: #### 1 3564543, 0350115 ####[facility] [address] [place] [address] URINALYSISOrdered By: Elodia puckett on 02-23-2023 Bacteria [...] AM) Normal Negative [facility] UA Auto SS [place].plasma/[place]. RBC (Bld) [Mass ratio] 0-3 /HPF Normal 0-3/HPF [...] AM) Invalid Interpretation Code 1.005 - 1.030 [facility] UA Auto SS UA Spec Desc Catheter 1 (02/23/23 11:47 AM) Normal [facility] UA Auto SS Comment on above: Result Comment: cath . specimen Urobilinogen Qn (U) 0.2898018 {Mercedes'U}/dL Normal 0.0 - 1.0 EU/dL [facility] UA Auto SS WBC Auto Ql (U) Negative (02/23/23 11:47 AM) Normal Negative [facility] UA Auto SS WBC LM.HPF (Urine sed) [#/Area] 0-5 /HPF Normal 0-5/HPF [facility] UA Auto SS XR Chest Single Viewon 02-23 XR Chest Single View Normal [facility] eGFRon 02-23-2023 GFR/1.73 sq M.predicted among non-blacks MDRD (S/P/Bld) [Vol rate/Area] 95 mL/min/1.73 m2 Normal >=59 [facility] Comment on above: Order Comment: Order added by Discern Expert. 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 Kidney failure is indicated at less than 15 mL/min/1.73m2. Performed By: #### 2 745314, 6834042, 4262742, 92081885, 32871492, 71383518, 8253296 ####[facility] [address] [place] [address] 36on 02-21-2023 36 Conformation on SS# what they have on file don't match what's on the order. Ask for Yeimi or adebayo Mitchell will be leaving soon. Normal [facility] Consent for PICC lineon 02-07 Consent for PICC line [id number]#[id number] :127 Normal [facility] Consent for Treatmenton 02-07 Consent for Treatment [id number]: 127 Normal [facility] Consent for Treatment [id number]: 127 Normal [facility] Consent for Treatmenton 02-07 Consent for Treatment [id number]: 127 Normal [facility] Heart and Vascular Office/Cl inic Noteon 02-17-2023 Heart and Vascular Office/Clinic Note Normal [facility] Comment on above: Result Comment: Elec tronically Signed By: Vickey WISE, Erwin FOtilia\.br\Date and Time Signed: 02/17/23 10:46 EDT Physician Orderon 02-17-2023 Physician Order [id number]#[id number] :127 Normal [facility] Consent for PICC lineon 02-07 Consent for PICC line [id number]#[id number] :127 Normal [facility] Auto Diffon 02-15-2023 Basophils/100 WBC (Bld) 0.0 % Normal 0.0-2.0 [facility] Comment on above: Order Comment: Order Added by Discern Expert. Performed By: #### 2 919473, 6059199, 87008884, 9683098, 15819221, 3311089 ####[facility] [address] [place] [address] Basophils/Leukocytes Auto (Bld) [Pure # fraction] 0.0 E9/L Normal 0.0-0.2 [facility] Comment on above: Order Comment: Order Added by Discern Expert. Performed By: #### 2 530504, 0774233, 00271416, 9289119, 66808660, 4395426 ####[facility] [address] [place] [address] Eosinophils/100 WBC (Bld) 0.0 % Normal 0.0-8.0 [facility] Comment on above: Order Comment: Order Added by Discern Expert. Performed By: #### 2 715166, 6029686, 92679930, 2414202, 36167841, 4035976 ####[address] [place] [address] Eosinophils/Leukocytes Auto (Bld) [Pure # fraction] 0.0 E9/L Normal 0.0-0.5 [facility] Comment on above: Order Comment: Order Added by Discern Expert. Performed By: #### 2 896144, 3026038, 22576127, 6126829, 61474450, 1828581 ####[address] [address] Lymphocytes/100 WBC (Bld) 2.4 % Low 14.0-50.0 [facility] Comment on above: Order Comment: Order Added by Cristiano Expert. Performed By: #### 2 497599, 4637827, 23496569, 6416804, 54288822, 4725183 ####[address] [address] Lymphocytes/Leukocytes Auto (Bld) [Pure # fraction] 0.2 E9/L Low 1.0-4.0 [facility] Comment on above: Order Comment: Order Added by Cristiano Expert. Performed By: #### 2 088633, 8168735, 21536429, 1300644, 99619524, 6483497 ####[address] [address] Monocytes/100 WBC (Bld) 5.7 % Normal 4.0-14.0 [facility] Comment on above: Order Comment: Order Added by Cristiano Expert. Performed By: #### 2 049447, 8010645, 11407566, 2558890, 42102532, 4704644 ####[address] [address] Monocytes/Leukocytes Auto (Bld) [Pure # fraction] 0.6 E9/L Normal 0.2-1.0 [facility] Comment on above: Order Comment: Order Added by Cristiano Expert. Performed By: #### 2 327544, 3657298, 53515285, 9696078, 82381454, 1310585 ####[address] [place] [address] Neutrophils/100 WBC (Bld) 91.9 % High 36.0-75.0 [facility] Comment on above: Order Comment: Order Added by Discern Expert. Performed By: #### 2 550191, 4685018, 43907289, 7810240, 31219494, 9577403 ####[address] [place] [address] Neutrophils/Leukocytes Auto (Bld) [Pure # fraction] 9.3 E9/L High 2.0-7.5 [facility] Comment on above: Order Comment: Order Added by Discern Expert. Performed By: #### 2 419714, 2998696, 87113178, 9968044, 59662296, 1357019 ####[address] [address] CBC w/ Auto Diffon 3 Erythrocyte distribution width (RBC) [Ratio] 19.6 % High 10.9-14.2 [facility] Comment on above: Performed By: #### 2 616035, 7931616, 00727990, 9509124, 19101164, 3015354 ####[address] [address] Hematocrit (Bld) [Volume fraction] 26.7 % Low 37.7-49.0 [facility] Comment on above: Performed By: #### 2 735407, 6577445, 21278917, 3083832, 53086084, 0129993 ####[address] [place] [address] Hemoglobin (Bld) [Mass/Vol] 8.4 g/dL Low 13.5-17.5 [facility] Comment on above: Performed By: #### 2 212254, 5532949, 30491167, 7799733, 46586936, 8467193 ####[facility] [address] [place] [address] MCH (RBC) [Entitic mass] 27.8 pg Normal 27.0-34.0 [facility] Comment on above: Performed By: #### 2 657284, 1654174, 58245809, 4905772, 06005326, 8520912 ####[address] [place] [address] MCHC (RBC) [Mass/Vol] 31.6 g/dL Normal 31.4-36.0 [facility] Comment on above: Performed By: #### 2 705941, 3334422, 06114985, 1334221, 29769609, 0930581 ####[address] [address] MCV (RBC) [Entitic vol] 87.8 fL Normal 80.0-100.0 [facility] Comment on above: Performed By: #### 2 814713, 4020185, 12266227, 9851977, 02400032, 1562090 ####[address] [place] [address] Platelet mean volume (Bld) [Entitic vol] 8.3 fL Normal 6.4-10.8 [facility] Comment on above: Performed By: #### 2 637230, 9677743, 00352860, 0455793, 48472753, 4586329 ####[address] [address] Platelets (Bld) [#/Vol] 203.0 E9/L Normal 150.0-500.0 [facility] Comment on above: Performed By: #### 2 537103, 7863184, 98714399, 8577660, 66288144, 0607553 ####[address] [place] [address] RBC (Bld) [#/Vol] 3.0 E12/L Low 4.3-5.9 [facility] Comment on above: Performed By: #### 2 469625, 8591142, 79694411, 5503896, 03334581, 7546276 ####[facility] [address] [place] [address] WBC corrected for nucl RBC Auto (Bld) [#/Vol] 10.1 E9/L Normal 4.0-11.0 [facility] Comment on above: Performed By: #### 2 335962, 9061739, 43396380, 7585882, 72605550, 5036629 ####[facility] [address] [place] [address] CHEMISTRYOrdered By: SYSTEM SYSTEM on 02-15-2023 Albumin [...] 12 mmol/L Normal 6 - 16 mEq/L [facility] Remisol AST [Catalytic activity/Vol] 35 [iU]/d Normal [...] 0.6 mg/dL Normal 0.5 - 1.3 mg/dL [facility] Remisol GFR/1.73 sq M.predicted among non-blacks MDRD (S/P/Bld) [Vol rate/Area] 100 mL/min/1.73 m2 Normal >=59mL/min/[address] [facility] Chem S Globulin (S) [Mass/Vol] 4.5 g/dL [...] 23 mg/dL High 5 - 21 mg/dL [facility] Remisol Urea nitrogen/Creatinine [Mass ratio] 38 mg/mg High 10 - 20 [facility] Remisol CKon 02-15-2023 CK [Catalytic activity/Vol] 71 Int._Unit/L Normal 14-261 [facility] Comment on above: Performed By: #### 2 309580, 1907050, 72533631, 6001341, 63488430, 4691751 ####[facility] [address] [place] [address] CMPon 02-15-2023 Albumin [Mass/Vol] 2.3 g/dL Low 3.3-5.0 [facility] Comment on above: Performed By: #### 2 710751, 1836147, 69322537, 7667236, 99535615, 4465849 ####[facility] [address] [place] [address] Albumin/Globulin (S) [Mass conc ratio] 0.5 Low 1.1-2.2 [facility] Comment on above: Performed By: #### 2 982692, 1460688, 03185486, 6581412, 46324841, 5316022 ####[facility] [address] [place] [address] ALP [Catalytic activity/Vol] 90 Int._Unit/L Normal 21-98 [facility] Comment on above: Performed By: #### 2 277693, 6360194, 99356117, 6690817, 45729947, 3669119 ####[facility] [address] [place] [address] ALT No additional P-5'-P [Catalytic activity/Vol] 31 Int._Unit/L Normal 6-46 [facility] Comment on above: Performed By: #### 2 535612, 2681833, 76362093, 0300853, 75594767, 0813134 ####[facility] [address] [place] [address] AST [Catalytic activity/Vol] 35 Int._Unit/L Normal 5-43 [facility] Comment on above: Performed By: #### 2 694766, 2572005, 48531457, 5233303, 05259816, 0927735 ####[facility] [address] [place] [address] Bilirubin [Mass/Vol] 0.6 mg/dL Normal 0.0-1.1 [facility] Comment on above: Performed By: #### 2 652045, 4053583, 97695318, 8269728, 37101541, 6514572 ####[facility] [address] [place] [address] Creatinine [Mass/Vol] 0.6 mg/dL Normal 0.5-1.3 [facility] Comment on above: Performed By: #### 2 534482, 1795927, 10715278, 8903624, 09428153, 4333976 ####[facility] [address] [place] [address] Globulin (S) [Mass/Vol] 4.5 g/dL High 1.4-4.0 [facility] Comment on above: Performed By: #### 2 775608, 2856278, 68238690, 8830033, 13052537, 2950786 ####[facility] [address] [place] [address] Protein [Mass/Vol] 6.8 g/dL Normal 6.0-7.8 [facility] Comment on above: Performed By: #### 2 409567, 5853780, 75377564, 9788136, 97858407, 3172812 ####[facility] [address] [place] [address] Urea nitrogen [Mass/Vol] 23 mg/dL High 5-21 [facility] Comment on above: Performed By: #### 2 268687, 7190803, 04185508, 8325867, 00451446, 4329699 ####[facility] [address] [place] [address] Urea nitrogen/Creatinine [Mass ratio] 38 No Units High 10-20 [facility] Comment on above: Performed By: #### 2 554774, 5920117, 31433739, 8043105, 16288949, 9438004 ####[facility] [address] [place] [address] Anion gap [Moles/Vol] 12 mmol/L Normal 6-16 [facility] Comment on above: Performed By: #### 2 385716, 8574855, 64240011, 6926521, 88409439, 5171379 ####[facility] [address] [place] [address] Calcium [Mass/Vol] 8.4 mg/dL Low 8.9-11.1 [facility] Comment on above: Performed By: #### 2 499700, 2631238, 75786512, 2562331, 47289285, 2147265 ####[facility] [address] [place] [address] Chloride [Moles/Vol] 97 mmol/L Low 101-111 [facility] Comment on above: Performed By: #### 2 332531, 5056706, 87867064, 4861018, 69524873, 1441075 ####[facility] [address] [place] [address] CO2 [Moles/Vol] 23 mmol/L Normal 21-31 [facility] Comment on above: Performed By: #### 2 619293, 5070222, 32968628, 1852475, 86445242, 9308991 ####[facility] [address] [place] [address] Glucose [Mass/Vol] 166 mg/dL Normal 55-199 [facility] Comment on above: Result Comment: If t his glucose result represents a fasting glucose, interpretation should refer to the following reference range: 55-99 mg/dL Performed By: #### 2 644949, 9575575, 85435483, 2484819, 48423258, 4177754 ####[facility] [address] [place] [address] Potassium [Moles/Vol] 3.9 mmol/L Normal 3.5-5.3 [facility] Comment on above: Performed By: #### 2 352064, 6654844, 04608363, 4919397, 18369578, 4918021 ####[facility] [address] [place] [address] Sodium [Moles/Vol] 128 mmol/L Low 135-145 [facility] Comment on above: Performed By: #### 2 450001, 6710997, 72262800, 3593644, 24996403, 6833226 ####[facility] [address] [place] [address] COAGULATIONOrdered By: Yang Ayala on 02-15-2023 aPTT Coag (PPP) [Time] 37.7 s High 25.1 - 36.5 second(s) [facility] Auto Coag INR Coag (PPP) [Relative time] 1.5 {INR} Invalid Interpretation Code [facility] Auto Coag PT Coag (PPP) [Time] 17.2 s High 9.4 - 1 2.5 second(s) [facility] Auto Coag CTA Abd Aorto-bilat/ iliofem oral runoffon 02-15-2023 CTA Abd Aorto-bilat/ iliofemoral runoff Normal [facility] Consent for Treatmenton Consent for Treatment [id number]#1.00CD: 127 Normal [facility] Discharge Instructionson Discharge Instructions [id number]#1.00CD :127 Normal [facility] ED Clinical Summaryon 2022 ED Clinical Summary Normal [facility] ED Note-Physicianon 02-16-20 ED Note-Physician Normal [facility] Comment on above: Result Comment: Elec tronically Signed By: Brennon Cruz DO\.br\Date and Time Signed: 02/15/23 16:50 EDT ED Patient Education Noteon 02-15-2023 ED Patient Education Note Normal [facility] ED Patient Summaryon 023 ED Patient Summary Normal [facility] HEMATOLOGYOrdered By: SYSTEM SYSTEM on 02-15-2023 Basophils/100 [...] 9.3 E9/L High 2.0 - 7.5 E9/L [facility] HEMATOLOGYOrdered By: Abigail Foote on 02-15-2023 [...] 87.8 fL Normal 80.0 - 100.0 fL [facility] Platelet mean volume (Bld) [Entitic vol] 8.3 fL Normal 6.4 - 10.8 fL [facility] Platelets (Bld) [#/Vol] 203.0 E9/L Normal 150. 0 - 500.0 E9/L [facility] HemeAutoSS RBC (Bld) [#/Vol] 3.0 E12/L Low 4.3 - 5.9 E12/L [facility] WBC corrected for nucl RBC Auto (Bld) [#/Vol] 10.1 E9/L Normal 4.0 - 11.0 E9/L [facility] HemeAutoSS Outside Labson 02-15-2023 Outside Labs [id number]#1.00CD :127 Normal [facility] Outside Radiologyon 02-16-20 Outside Radiology [id number]#1.00CD :127 Normal [facility] PT & PTTon 02-15-2023 aPTT Coag (PPP) [Time] 37.7 second(s) High 25.1-36.5 [facility] Comment on above: Result Comment: Para meter [...] the same coagulation reagent and instrumentation as [facility]. Currently there are no coagulation studies available worldwide for children to 14 days, and no normal ranges. Heparin therapeutic range (represented by Anti-Factor Xa activity of 0.2 - 0.4 U/mL) corresponds to PTT of 56.6 - 109.0 sec. Performed By: #### 2 199792, 7013605, 73706463, 2126755, 52778024, 8897972 ####[facility] [address] [place] [address] INR Coag (PPP) [Relative time] 1.5 {INR} Invalid Interpretation Code [facility] Comment on above: Result Comment: INR results are specifically intended to assess patients stabilized on long-term Anticoagulation therapy suggested INR?s ?Less Intensive Anticoagulation? 2.0 ? 3.0Conventional Range 3.0 ? 4.5 Performed By: #### 2 291173, 1599565, 97330799, 0403453, 90609286, 4273853 ####[facility] [address] [place] [address] PT Coag (PPP) [Time] 17.2 second(s) High 9.4-12.5 [facility] Comment on above: Result Comment: 15 d [...] the same coagulation reagent and instrumentation as [facility]. Currently there are no coagulation studies available worldwide for children to 14 days, and no normal ranges. Performed By: #### 2 777023, 8519085, 24442078, 2401826, 86188635, 0185895 ####[facility] [address] [place] [address] Physician Orderon 02-15-2023 Physician Order [id number]#1.00CD :127 Normal [facility] Physician Order [id number]#1.00CD :127 Normal [facility] eGFRon 02-15-2023 GFR/1.73 sq M.predicted among non-blacks MDRD (S/P/Bld) [Vol rate/Area] 100 mL/min/1.73 m2 Normal >=59 [facility] Comment on above: Order Comment: Order added by Discern Expert. 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 Kidney failure is indicated at less than 15 mL/min/1.73m2. Performed By: #### 2 629791, 8844505, 27707379, 4631475, 90575130, 5933857 ####[facility] [address] [place] [address] Outside Recordson 02-14-2023 Outside Records [id number]#1.00CD: 127 Normal [facility] Outside Records [id number]#1.00CD: 127 Normal [facility] Physician Orderon 02-14-2023 Physician Order [id number]#1.00CD: 127 Normal [facility] Consent for Treatmenton 05-0 Consent for Treatment [id number]#1.00CD: 127 Normal [facility] Heart and Vascular Office/Cl inic Noteon 02-10-2023 Heart and Vascular Office/Clinic Note Normal [facility] Comment on above: Result Comment: Elec tronically Signed By: Vickey WISE, Erwin FOtilia\.br\Date and Time Signed: 02/10/23 12:32 EDT CBC W MANUAL DIFFon 02-10-20 ANISOCYTOSIS 1+ Normal [facility] Comment on above: Performed By: #### C BCMAN #### [facility] [address] [place] [address] Dr. Joselyn Coffey ATYPICAL LYMPH # Normal [facility] Comment on above: Performed By: #### C BCMAN #### [facility] [address] [place] [address] Dr. Joselyn Coffey ATYPICAL LYMPH % Normal [facility] Comment on above: Performed By: #### C BCMAN #### [facility] [address] [place] [address] Dr. Joselyn Coffey BAND # Normal 0.0-0.3 [facility] Comment on above: Performed By: #### C BCMAN #### [facility] [address] [place] [address] Dr. Joselyn Coffey BAND % Normal 0-5 [facility] Comment on above: Performed By: #### C BCMAN #### [facility] [address] [place] [address] Dr. Joselyn Coffey BASOM # 0.00 103/ul Normal 0.00-0.10 [facility] Comment on above: Performed By: #### C BCMAN #### [facility] [address] [place] [address] Dr. Joselyn Coffey BASOM % 0.0 % Critically low 0.2-2.0 [facility] Comment on above: Performed By: #### C BCMAN #### [facility] [address] [place] [address] Dr. Joselyn Coffey BLAST # Normal [facility] Comment on above: Performed By: #### C BCDEV #### [facility] [address] [place] [address] Dr. Joeslyn Coffey BLAST % Normal [facility] Comment on above: Performed By: #### C BCDEV #### [facility] [address] [place] [address] Dr. Joselyn Coffey CORRECTED WBC Normal 4.0-11.0 [facility] Comment on above: Performed By: #### C BCDEV #### [facility] [address] [place] [address] Dr. Joselyn Coffey EOS # 0.00 103/ul Normal 0.00-0.70 [facility] Comment on above: Performed By: #### C ESTHELA #### [facility] [address] [place] [address] Dr. Joselyn Coffey EOS% 0.0 % Critically low 0.9-7.0 [facility] Comment on above: Performed By: #### C ESTHELA #### [facility] [address] [place] [address] Dr. Joselyn Coffey HCT 26.7 % Critically low 42.0-54.0 [facility] Comment on above: Performed By: #### C ESTHELA #### [facility] [address] [place] [address] Dr. Joselyn Coffey HGB 8.3 g/dl Critically low 14.0-18.0 [facility] Comment on above: Performed By: #### C ESTHELA #### [facility] [address] [place] [address] Dr. Joselyn Coffey HYPOCHROMASIA 2+ Normal [facility] Comment on above: Performed By: #### C BCDEV #### [facility] [address] [place] [address] Dr. Joselyn Coffey LYMPHM # 0.17 103/ul Critically low 1.20-3.80 [facility] Comment on above: Performed By: #### C ESTHELA #### [facility] [address] [place] [address] Dr. Joselyn Coffey LYMPHM% 3.0 % Critically low 20.5-60.0 [facility] Comment on above: Performed By: #### C ESTHELA #### [facility] [address] [place] [address] Dr. Joselyn Coffey MCH 28.3 pg Normal 25.9-34.0 [facility] Comment on above: Performed By: #### C ESTHELA #### [facility] [address] [place] [address] Dr. Joselyn Coffey MCHC 31.1 g/dl Normal 29.9-35.2 [facility] Comment on above: Performed By: #### C ESTHELA #### [facility] [address] [place] [address] Dr. Joselyn Coffey MCV 91.1 fL Normal 80.0-94.0 [facility] Comment on above: Performed By: #### C ESTHELA #### [facility] [address] [place] [address] Dr. Joselyn Coffey METAMYELOCYTE # Normal [facility] Comment on above: Performed By: #### C ESTHELA #### [facility] [address] [place] [address] Dr. Joselyn Coffey METAMYELOCYTE % Normal [facility] Comment on above: Performed By: #### C ESTHELA #### [facility] [address] [place] [address] Dr. Joselyn Coffey MONOM# 0.46 103/ul Normal 0.30-0.80 [facility] Comment on above: Performed By: #### C ESTHELA #### [facility] [address] [place] [address] Dr. Joselyn Coffey MONOM% 8.0 % Normal 1.7-12.0 [facility] Comment on above: Performed By: #### C ESTHELA #### [facility] [address] [place] [address] Dr. Joselyn Coffey MPV 11.6 fL Normal 9.5-13.5 [facility] Comment on above: Performed By: #### C ESTHELA #### [facility] [address] [address] [address] Joselyn Coffey MYELOCYTE # Normal [facility] Comment on above: Performed By: #### C BCDEV #### [facility] [address] [address] [address] Joselyn Coffey MYELOCYTE % Normal [facility] Comment on above: Performed By: #### C BCDEV #### [facility] [id number] Joselyn Coffey NRBC Normal [facility] Comment on above: Performed By: #### C BCDEV #### [facility] [address] [place] [address] Dr. Joselyn Coffey PLT 161 103/ul Normal 150-450 [facility] Comment on above: Performed By: #### C ESTHELA #### [facility] [address] [place] [address] Dr. Joselyn Coffey RBC 2.93 106/ul Critically low 4.70-6.10 [facility] Comment on above: Performed By: #### C ESTHELA #### [facility] [address] [place] [address] Dr. Jsoelyn Coffey RDW 18.8 % Critically high 11.0-15.0 [facility] Comment on above: Performed By: #### C ESTHELA #### [facility] [address] [place] [address] Dr. Joselyn Coffey SEG # 5.16 103/ul Normal 1.40-6.50 [facility] Comment on above: Performed By: #### C BCDEV #### [facility] [address] [place] [address] Dr. Joselyn Coffey SEG % 89.0 % Critically high 43.0-75.0 [facility] Comment on above: Performed By: #### C BCMAN #### [facility] [address] [place] [address] Dr. Joselyn Coffey WBC 5.8 103/ul Normal 4.0-11.0 [facility] Comment on above: Performed By: #### C ESTHELA #### [facility] [address] [place] [address] Dr. Joselyn Coffey PROF CHEM 8 (BAS METB)on Anion gap [Moles/Vol] 8.3 mmol/L Normal [facility] Comment on above: Performed By: #### B MP #### [facility] [address] [address] [address] Joselyn Coffey Calcium [Mass/Vol] 8.3 mg/dL Critically low 8.5-10.1 Th [facility] Comment on above: Performed By: #### B MP #### [facility] [address] [address] [address] Joselyn Coffey Chloride [Moles/Vol] 101 mmol/L Normal 98-107 [facility] Comment on above: Performed By: #### B MP #### [facility] [address] [place] [address] Dr. Joselyn Coffey CO2 [Moles/Vol] 27.7 mmol/L Normal 21.0-32.0 [facility] Comment on above: Performed By: #### B MP #### [facility] [address] [place] [address] Dr. Joselyn Coffey Creatinine [Mass/Vol] 0.60 mg/dL Critically low 0.70-1.30 [facility] Comment on above: Performed By: #### B MP #### [facility] [address] [place] [address] Dr. Joselyn Coffey EGFR-AF NIGERIEN >60 Normal >=60 [facility] Comment on above: Performed By: #### B MP #### [facility] [address] [place] [address] Dr. Joselyn Coffey EGFR-NON AF NIGERIEN >60 Normal >=60 [facility] Comment on above: Performed By: #### B MP #### [facility] [address] [place] [address] Dr. Joselyn Coffey Glucose [Mass/Vol] 188 mg/dL Critically high 74-106 T [facility] Comment on above: Performed By: #### B MP #### [facility] [address] [place] [address] Dr. Joselyn Coffey Potassium [Moles/Vol] 4.0 mmol/L Normal 3.5-5.1 [facility] Comment on above: Performed By: #### B MP #### [facility] [facility] [address] [place] [address] Dr. Joselyn Coffey Sodium [Moles/Vol] 133 mmol/L Critically low 136-145 [facility] Comment on above: Performed By: #### B MP #### [facility] [address] [place] [address] Dr. Joselyn Coffey Urea nitrogen [Mass/Vol] 13.0 mg/dL Normal 7.0-18.0 [facility] Comment on above: Performed By: #### B MP #### [facility] [address] [place] [address] Dr. Joselyn Coffey Urea nitrogen/Creatinine [Mass ratio] 21.7 mg/mg Normal [facility] Comment on above: Performed By: #### B MP #### [facility] [address] [place] [address] Dr. Joselyn Coffey PROTIMEon 02-09-2023 INR Coag (PPP) [Relative time] 1.12 {INR} Normal [facility] Comment on above: Performed By: #### C ESTHELA #### [facility] [address] [place] [address] Dr. Joselyn Coffey INR GUIDELINES SEE BELOW Normal [facility] Comment on above: Result Comment: SNOW RED INR: 2.0 - 3.0 CONDITIONS NOT LISTED BELOW 2.5 - 3.5 FOR PROSTHETIC HEART VALVE REPLACEMENT 2.5 - 3.5 RECURRENT THROMBOSIS Performed By: #### C BCMAN #### [facility] [address] [place] [address] Dr. Joselyn Coffey PT Coag (PPP) [Time] 11.8 s Critically high 9.0-11.6 [facility] Comment on above: Performed By: #### C DANNYMAN #### [facility] [address] [place] [address] Dr. Joselyn Coffey PTTon 02-09-2023 aPTT Coag (Bld) [Time] 37.3 s Critically high 22.3-36. 2 [facility] Comment on above: Performed By: #### C BCMAN #### [facility] [address] [address] [address] Joselyn Coffey US ARTERY LEG RTon [...] by: MARIO CULLEN Date: 2023-02-09 14:17 Normal [facility] XR CHEST 1 Von 02-09-2023 XR CHEST 1 V EXAM: XR CHEST 1 V HISTORY: Asthenia COMPARISON: 04/04/2021 TECHNIQUE: Single view of the chest FINDINGS: Heart size normal. No focal consolidation, pleural effusion, pulmonary congestion or pneumothorax. Sternotomy wires. Right-sided central line terminating in the lower SVC region. IMPRESSION: No acute findings. Electronically authenticated by: DONALD LIMA Date: 2023-02-09 14:18 Normal [facility] 30on 02-03-2023 30 Normal [facility] 30 The patient is Moderately Stable - Low risk of patient condition declining or worsening The patient's goals for the shift include comfort The clinical goals for the shift include sleep Normal [facility] BASIC METABOLIC PANELon 01-09 Anion gap [Moles/Vol] 8 mmol/L Normal 7-20 [facility] Comment on above: Performed By: #### L [id number] ####[facility] ([employer])[address] [place] [address] Calcium [Mass/Vol] 7.3 mg/dL Low 8.6-10.3 [facility] Comment on above: Performed By: #### L [id number] ####[facility] ([employer])[address] [place] [address] Chloride [Moles/Vol] 104 mmol/L Normal 98-107 [facility] Comment on above: Performed By: #### L [id number] ####[facility] ([facility])[address] [place] [address] CO2 [Moles/Vol] 25 mmol/L Normal 21-31 [facility] Comment on above: Performed By: #### L [id number] ####[facility] ([facility])[address] [place] [address] Creatinine [Mass/Vol] 0.48 mg/dL Low 0.70-1.30 [facility] Comment on above: Performed By: #### L [id number] ####[facility] ([facility])[address] [place] [address] GLOMERULAR FILTRATION RATE ML/MIN/1.73 SQ M.PREDICTED 107.0 mL/min/1.73m*2 Normal >60.0 [facility] Comment on above: Result Comment: [facility]???s estimated glomerular filtration rate (eGFR) will [...] of individuals. Performed By: #### L [id number] ####[facility] ([facility])[address] [place] [address] Glucose [Mass/Vol] 103 mg/dL High 70-100 [facility] Comment on above: Performed By: #### L [id number] ####[facility] ([facility])[address] [place] [address] Potassium [Moles/Vol] 3.3 mmol/L Low 3.5-5.1 [facility] Comment on above: Performed By: #### L [id number] ####[facility] ([facility])[address] [place] [address] Sodium [Moles/Vol] 134 mmol/L Low 136-145 [facility] Comment on above: Performed By: #### L [id number] ####[facility] ([facility])[address] [place] [address] Urea nitrogen [Mass/Vol] 8 mg/dL Normal 7-25 [facility] Comment on above: Performed By: #### L [id number] ####[facility] ([facility])[address] [place] [address] UREA NITROGEN/CREATININE (MASS RATIO) IN SER/PLAS 16.7 Normal [facility] Comment on above: Performed By: #### L [id number] ####[facility] ([facility])[address] [place] [address] CBCon 02-03-2023 Erythrocyte distribution width (RBC) [Ratio] 17.3 % High 11.5-15.0 [facility] Comment on above: Performed By: #### L [id number] ####[facility] ([facility])[address] [place] [address] ERYTHROCYTE MEAN CORPUSCULAR HEMOGLOBIN CONCENTRATION (G/DL) BY AUTOMATED 32.4 g/dL Normal 32.0-35.0 [facility] Comment on above: Performed By: #### L [id number] ####[facility] ([facility])[address] [place] [address] Hematocrit (Bld) [Volume fraction] 25.0 % Low 39.0-55.0 [facility] Comment on above: Performed By: #### L [id number] ####[facility] ([facility])[address] [place] [address] Hemoglobin (Bld) [Mass/Vol] 8.1 g/dL Low 13.0-17.0 [facility] Comment on above: Performed By: #### L [id number] ####[facility] ([facility])[address] [place] [address] IMMATURE PLATELET FRACTION % 9.6 % High 0.8-6.3 [facility] Comment on above: Performed By: #### L [id number] ####[facility] ([facility])[address] [place] [address] MCH (RBC) [Entitic mass] 28.9 pg Normal 27.0-33.0 [facility] Comment on above: Performed By: #### L [id number] ####[facility] ([facility])[address] [place] [address] MCV (RBC) [Entitic vol] 89.3 fL Normal 82.0-98.0 [facility] Comment on above: Performed By: #### L [id number] ####[facility] ([facility])[address] [place] [address] PLATELETS (10*3/UL) IN BLOOD AUTOMATED COUNT 91 10*3/uL Low 150-400 [facility] Comment on above: Performed By: #### L [id number] ####[facility] ([facility])[address] [place] [address] RBC (Bld) [#/Vol] 2.80 10*6/uL Low 4.20-5.70 [facility] Comment on above: Performed By: #### L [id number] ####[facility] ([facility])[address] [place] [address] WBC (Bld) [#/Vol] 4.44 10*3/uL Normal 4.00-10.60 [facility] Comment on above: Performed By: #### L [id number] ####[facility] ([facility])[address] [place] [address] DSon 02-03-2023 DS Normal [facility] PHOSPHORUSon 02-03-2023 Magnesium [Mass/Vol] 2.3 mg/dL Low 2.5-5.0 [facility] Comment on above: Performed By: #### L [id number] ####[facility] [place] [address] 30on 02-02-2023 30 Normal [facility] BASIC METABOLIC PANELon - Anion gap [Moles/Vol] 10 mmol/L Normal 7-20 [facility] Comment on above: Performed By: #### L [id number] ####[facility] [place] [address] Calcium [Mass/Vol] 7.4 mg/dL Low 8.6-10.3 [facility] Comment on above: Performed By: #### L [id number] ####[facility] ([facility] [place] [address] Chloride [Moles/Vol] 106 mmol/L Normal 98-107 [facility] Comment on above: Performed By: #### L [id number] ####[facility] ([facility])[address] [place] [address] CO2 [Moles/Vol] 22 mmol/L Normal 21-31 [facility] Comment on above: Performed By: #### L [id number] ####[facility] ([facility])[address] [place] [address] Creatinine [Mass/Vol] 0.60 mg/dL Low 0.70-1.30 [facility] Comment on above: Performed By: #### L [id number] ####[facility] ([facility])[address] [place] [address] GLOMERULAR FILTRATION RATE ML/MIN/1.73 SQ M.PREDICTED 100.0 mL/min/1.73m*2 Normal >60.0 [facility] Comment on above: Result Comment: [facility]???s estimated glomerular filtration rate (eGFR) will [...] of individuals. Performed By: #### L [id number] ####[facility] ([facility])[address] [place] [address] Glucose [Mass/Vol] 105 mg/dL High 70-100 [facility] Comment on above: Performed By: #### L [id number] ####[facility] ([facility])[address] [place] [address] Potassium [Moles/Vol] 3.9 mmol/L Normal 3.5-5.1 [facility] Comment on above: Performed By: #### L [id number] ####[facility] ([facility])[address] [place] [address] Sodium [Moles/Vol] 134 mmol/L Low 136-145 [facility] Comment on above: Performed By: #### L [id number] ####[facility] ([facility])[address] [place] [address] Urea nitrogen [Mass/Vol] 9 mg/dL Normal 7-25 [facility] Comment on above: Performed By: #### L [id number] ####[facility] ([facility])[address] [place] [address] UREA NITROGEN/CREATININE (MASS RATIO) IN SER/PLAS 15.0 Normal [facility] Comment on above: Performed By: #### L [id number] ####[facility] ([facility])[address] [place] [address] CBCon 02-02-2023 Erythrocyte distribution width (RBC) [Ratio] 16.9 % High 11.5-15.0 [facility] Comment on above: Performed By: #### L [id number] ####[facility] ([facility])[address] [place] [address] ERYTHROCYTE MEAN CORPUSCULAR HEMOGLOBIN CONCENTRATION (G/DL) BY AUTOMATED 31.5 g/dL Low 32.0-35.0 [facility] Comment on above: Performed By: #### L [id number] ####[facility] [place] [address] Hematocrit (Bld) [Volume fraction] 31.7 % Low 39.0-55.0 [facility] Comment on above: Performed By: #### L [id number] ####[facility] [place] [address] Hemoglobin (Bld) [Mass/Vol] 10.0 g/dL Low 13.0-17.0 [facility] Comment on above: Performed By: #### L [id number] ####[facility] ([facility])[address] [place] [address] MCH (RBC) [Entitic mass] 27.9 pg Normal 27.0-33.0 [facility] Comment on above: Performed By: #### L [id number] ####[facility] ([facility])[address] [place] [address] MCV (RBC) [Entitic vol] 88.3 fL Normal 82.0-98.0 [facility] Comment on above: Performed By: #### L [id number] ####[facility] ([facility])[address] [place] [address] PLATELETS (10*3/UL) IN BLOOD AUTOMATED COUNT 124 10*3/uL Low 150-400 [facility] Comment on above: Performed By: #### L [id number] ####[facility] ([facility])[address] [place] [address] RBC (Bld) [#/Vol] 3.59 10*6/uL Low 4.20-5.70 [facility] Comment on above: Performed By: #### L [id number] ####[facility] ([facility])[address] [place] [address] WBC (Bld) [#/Vol] 8.67 10*3/uL Normal 4.00-10.60 [facility] Comment on above: Performed By: #### L [id number] ####[facility] ([facility])[address] [place] [address] HEPARIN LEVELon 02-02-2023 HEPARIN UNFRACTIONATED (U/ML) IN PPP BY CHROMOGENIC METHOD 0.48 IU/mL Normal 0.3-0.7 [facility] Comment on above: Result Comment: [place] roxaban and Apixaban will interfere with the anti Xa assay used to monitor UFH and LMWH. Performed By: #### L [id number] ####[facility] ([facility])[address] [place] [address] HEPARIN UNFRACTIONATED (U/ML) IN PPP BY CHROMOGENIC METHOD 0.38 IU/mL Normal 0.3-0.7 [facility] Comment on above: Result Comment: [place] roxaban and Apixaban will interfere with the anti Xa assay used to monitor UFH and LMWH. Performed By: #### L [id number] ####[facility] ([facility])[address] [place] [address] HEPARIN UNFRACTIONATED (U/ML) IN PPP BY CHROMOGENIC METHOD 0.28 IU/mL Low 0.3-0.7 [facility] Comment on above: Order Comment: Check anti-Xa level every 6 hours while on heparin infusion, or per protocol. Result Comment: [place] roxaban and Apixaban will interfere with the anti Xa assay used to monitor UFH and LMWH. Performed By: #### L [id number] ####[facility] ([facility])[address] [place] [address] MAGNESIUMon 02-02-2023 Magnesium [Mass/Vol] 1.9 mg/dL Normal 1.9-2.7 [facility] Comment on above: Performed By: #### L [id number] ####[facility] ([facility])[address] [facility] [address] PHOSPHORUSon 02-02-2023 Magnesium [Mass/Vol] 3.2 mg/dL Normal 2.5-5.0 [facility] Comment on above: Performed By: #### L [id number] ####[facility] ([facility])[address] [place] [address] APTTon 02-01-2023 ACTIVATED PARTIAL THROMBOPLASTIN TIME IN PPP BY COAGULATION ASSAY 57.8 Seconds High 25.0-35.0 [facility] Comment on above: Order Comment: Basel ine aPTT before initiating heparin infusion. Result Comment: Clin ical significance of the APTT is questionable in the presence of heparin. Performed By: #### L [id number] ####[facility] ([facility])[address] [place] [address] BASIC METABOLIC PANELon 01-09 Anion gap [Moles/Vol] 9 mmol/L Normal 7-20 [facility] Comment on above: Performed By: #### L [id number] ####[facility] ([facility])[address] [place] [address] Calcium [Mass/Vol] 7.5 mg/dL Low 8.6-10.3 [facility] Comment on above: Performed By: #### L [id number] ####[facility] ([facility])[address] [place] [address] Chloride [Moles/Vol] 107 mmol/L Normal 98-107 [facility] Comment on above: Performed By: #### L [id number] ####[facility] ([facility])[address] [place] [address] CO2 [Moles/Vol] 20 mmol/L Low 21-31 [facility] Comment on above: Performed By: #### L [id number] ####[facility] ([facility])[address] [place] [address] Creatinine [Mass/Vol] 0.56 mg/dL Low 0.70-1.30 [facility] Comment on above: Performed By: #### L [id number] ####[facility] ([facility])[address] [place] [address] GLOMERULAR FILTRATION RATE ML/MIN/1.73 SQ M.PREDICTED 102.2 mL/min/1.73m*2 Normal >60.0 [facility] Comment on above: Result Comment: [facility]???s estimated glomerular filtration rate (eGFR) will no [...] of individuals. Performed By: #### L [id number] ####[facility] ([facility])[address] [place] [address] Glucose [Mass/Vol] 84 mg/dL Normal 70-100 [facility] Comment on above: Performed By: #### L [id number] ####[facility] ([facility])[address] [place] [address] Potassium [Moles/Vol] 3.4 mmol/L Low 3.5-5.1 [facility] Comment on above: Performed By: #### L [id number] ####[facility] ([facility])[address] [place] [address] Sodium [Moles/Vol] 133 mmol/L Low 136-145 [facility] Comment on above: Performed By: #### L [id number] ####[facility] ([facility])[address] [place] [address] Urea nitrogen [Mass/Vol] 9 mg/dL Normal 7-25 [facility] Comment on above: Performed By: #### L [id number] ####[facility] ([facility])[address] [place] [address] UREA NITROGEN/CREATININE (MASS RATIO) IN SER/PLAS 16.1 [facility] Comment on above: Performed By: #### L [id number] ####[facility] ([facility])[address] [place] [address] BLOOD CULTUREon 02-01-2023 Bacteria identified Cx Nom (Bld) No growth at 5 days Normal [facility] Comment on above: Order Comment: From a different site than #1. Performed By: #### L [id number] ####[facility] ([facility])[address] [place] [address] CBCon 02-01-2023 Erythrocyte distribution width (RBC) [Ratio] 16.3 % High 11.5-15.0 [facility] Comment on above: Performed By: #### L [id number] ####[facility] ([facility])[address] [place] [address] ERYTHROCYTE MEAN CORPUSCULAR HEMOGLOBIN CONCENTRATION (G/DL) BY AUTOMATED 32.6 g/dL Normal 32.0-35.0 [facility] Comment on above: Performed By: #### L [id number] ####[facility] ([facility])[address] [place] [address] Hematocrit (Bld) [Volume fraction] 25.8 % Low 39.0-55.0 [facility] Comment on above: Performed By: #### L [id number] ####[facility] ([facility])[address] [place] [address] Hemoglobin (Bld) [Mass/Vol] 8.4 g/dL Low 13.0-17.0 [facility] Comment on above: Performed By: #### L [id number] ####[facility] ([facility])[address] [place] [address] IMMATURE PLATELET FRACTION % 10.2 % High 0.8-6.3 [facility] Comment on above: Performed By: #### L [id number] ####[facility] ([facility])[address] [place] [address] MCH (RBC) [Entitic mass] 28.3 pg Normal 27.0-33.0 [facility] Comment on above: Performed By: #### L [id number] ####[facility] ([facility] [place] [address] MCV (RBC) [Entitic vol] 86.9 fL Normal 82.0-98.0 [facility] Comment on above: Performed By: #### L [id number] ####[facility] ([facility])[address] [place] [address] PLATELETS (10*3/UL) IN BLOOD AUTOMATED COUNT 89 10*3/uL Low 150-400 [facility] Comment on above: Result Comment: P=85 , 1D Performed By: #### L [id number] ####[facility] ([facility])[address] [place] [address] RBC (Bld) [#/Vol] 2.97 10*6/uL Low 4.20-5.70 [facility] Comment on above: Performed By: #### L [id number] ####[facility] ([facility])[address] [facility] [place] [place] [address] WBC (Bld) [#/Vol] 5.04 10*3/uL Normal 4.00-10.60 [facility] Comment on above: Performed By: #### L [id number] ####[facility] ([facility])[address] [place] [address] CKon 02-01-2023 CREATINE KINASE (U/L) IN SER/PLAS 36.0 U/L Normal 30.0-223.0 [facility] Comment on above: Performed By: #### L [id number] ####[facility] ([facility])[address] [place] [address] HEPARIN LEVELon 02-01-2023 HEPARIN UNFRACTIONATED (U/ML) IN PPP BY CHROMOGENIC METHOD 0.16 IU/mL Invalid Interpretation Code 0.3-0.7 [facility] Comment on above: Result Comment: [place] roxaban and Apixaban will interfere with the anti Xa assay used to monitor UFH and LMWH. Performed By: #### L [id number] ####[facility] ([facility])[address] [place] [address] MAGNESIUMon 02-01-2023 Magnesium [Mass/Vol] 1.7 mg/dL Low 1.9-2.7 [facility] Comment on above: Performed By: #### L [id number] ####[facility] ([facility])[address] [place] [address] PHOSPHORUSon 02-01-2023 Magnesium [Mass/Vol] 2.2 mg/dL Low 2.5-5.0 [facility] Comment on above: Performed By: #### L [id number] ####[facility] ([facility])[address] [place] [address] POCT GLUCOSE METER UNSOLICIT ED RESULTSon 02-01-2023 Glucose [Mass/Vol] 119 mg/dL High 70-105 [facility] Comment on above: Result Comment: amur tad Performed By: #### L [id number] ####[facility] ([facility])[address] [place] [address] Glucose [Mass/Vol] 125 mg/dL High 70-105 [facility] Comment on above: Result Comment: rbar ero Performed By: #### L [id number] ####[facility] ([facility])[address] [place] [address] Glucose [Mass/Vol] 102 mg/dL Normal 70-105 [facility] Comment on above: Result Comment: [id number] Performed By: #### L [id number] ####[facility] ([facility])[address] [place] [address] 30on 01-31-2023 30 4/24- POD2 groin wou nd exploration, electrolyte replacement today, had small drop in hgb to 7.2, 1 U of PRBC to be transfused, [place] in place on groin. has ptot orders, awaiting their recs, vanc and zosyn for infx coverage, possible tx out of icu today. CB Normal [facility] BASIC METABOLIC PANELon 01-09 Anion gap [Moles/Vol] 7 mmol/L Normal 7-20 [facility] Comment on above: Performed By: #### L [id number] ####[facility] ([facility])[address] [place] [address] Calcium [Mass/Vol] 7.1 mg/dL Low 8.6-10.3 [facility] Comment on above: Performed By: #### L [id number] ####[facility] ([facility])[address] [place] [address] Chloride [Moles/Vol] 109 mmol/L High 98-107 [facility] Comment on above: Performed By: #### L [id number] ####[facility] ([facility])[address] [place] [address] CO2 [Moles/Vol] 22 mmol/L Normal 21-31 [facility] Comment on above: Performed By: #### L [id number] ####[facility] ([facility])[address] [place] [address] Creatinine [Mass/Vol] 0.56 mg/dL Low 0.70-1.30 [facility] Comment on above: Performed By: #### L [id number] ####[facility] ([facility])[address] [place] [address] GLOMERULAR FILTRATION RATE ML/MIN/1.73 SQ M.PREDICTED 102.2 mL/min/1.73m*2 Normal >60.0 [facility] Comment on above: Result Comment: [facility]???s estimated glomerular filtration rate (eGFR) will [...] of individuals. Performed By: #### L [id number] ####[facility] [place] [address] Glucose [Mass/Vol] 100 mg/dL Normal 70-100 [facility] Comment on above: Performed By: #### L [id number] ####[facility] ([facility])[address] [place] [address] Potassium [Moles/Vol] 3.3 mmol/L Low 3.5-5.1 [facility] Comment on above: Performed By: #### L [id number] ####[facility] ([facility])[address] [place] [address] Sodium [Moles/Vol] 135 mmol/L Low 136-145 [facility] Comment on above: Performed By: #### L [id number] ####[facility] ([facility])[address] [place] [address] Urea nitrogen [Mass/Vol] 8 mg/dL Normal 7-25 [facility] Comment on above: Performed By: #### L [id number] ####[facility] [place] [address] UREA NITROGEN/CREATININE (MASS RATIO) IN SER/PLAS 14.3 Normal [facility] Comment on above: Performed By: #### L [id number] ####[facility] ([facility])[address] [place] [address] CBCon 01-31-2023 Erythrocyte distribution width (RBC) [Ratio] 16.4 % High 11.5-15.0 [facility] Comment on above: Performed By: #### L [id number] ####[facility] ([facility])[address] [place] [address] ERYTHROCYTE MEAN CORPUSCULAR HEMOGLOBIN CONCENTRATION (G/DL) BY AUTOMATED 32.4 g/dL Normal 32.0-35.0 [facility] Comment on above: Performed By: #### L [id number] ####[facility] ([facility])[address] [place] [address] Hematocrit (Bld) [Volume fraction] 22.2 % Low 39.0-55.0 [facility] Comment on above: Performed By: #### L [id number] ####[facility] ([facility])[address] [place] [address] Hemoglobin (Bld) [Mass/Vol] 7.2 g/dL Low 13.0-17.0 [facility] Comment on above: Performed By: #### L [id number] ####[facility] [place] [address] IMMATURE PLATELET FRACTION % 11.0 % High 0.8-6.3 [facility] Comment on above: Performed By: #### L [id number] ####[facility] ([facility])[address] [place] [address] MCH (RBC) [Entitic mass] 27.6 pg Normal 27.0-33.0 [facility] Comment on above: Performed By: #### L [id number] ####[facility] ([facility])[address] [place] [address] MCV (RBC) [Entitic vol] 85.1 fL Normal 82.0-98.0 [facility] Comment on above: Performed By: #### L [id number] ####[facility] ([facility])[address] [place] [address] PLATELETS (10*3/UL) IN BLOOD AUTOMATED COUNT 85 10*3/uL Low 150-400 [facility] Comment on above: Result Comment: Last plt 79 1d Performed By: #### L [id number] ####[facility] ([facility])[address] [place] [address] RBC (Bld) [#/Vol] 2.61 10*6/uL Low 4.20-5.70 [facility] Comment on above: Performed By: #### L [id number] ####[facility] ([facility])[address] [place] [address] WBC (Bld) [#/Vol] 5.70 10*3/uL Normal 4.00-10.60 [facility] Comment on above: Performed By: #### L [id number] ####[facility] [facility])[address] [place] [address] HEMOGLOBIN AND HEMATOCRIT, B LOODon 01-31-2023 Hematocrit (Bld) [Volume fraction] 29.9 % Low 39.0-55.0 [facility] Comment on above: Performed By: #### L [id number] ####[facility] [place] [address] Hemoglobin (Bld) [Mass/Vol] 9.3 g/dL Low 13.0-17.0 [facility] Comment on above: Performed By: #### L [id number] ####[facility])[address] [place] [address] HEPARIN LEVELon 01-31-2023 HEPARIN UNFRACTIONATED (U/ML) IN PPP BY CHROMOGENIC METHOD 0.21 IU/mL Low 0.3-0.7 [facility] Comment on above: Result Comment: [place] roxaban and Apixaban will interfere with the anti Xa assay used to monitor UFH and LMWH. Performed By: #### L [id number] ####[facility])[address] [place] [address] POCT GLUCOSE METER UNSOLICIT ED RESULTSon 01-31-2023 Glucose [Mass/Vol] 138 mg/dL High 70-105 [facility] Comment on above: Result Comment: jead es Performed By: #### L [id number] ####[facility] [place] [address] Glucose [Mass/Vol] 110 mg/dL High 70-105 [facility] Comment on above: Result Comment: jead es Performed By: #### L [id number] ####[facility])[address] [place] [address] Glucose [Mass/Vol] 133 mg/dL High 70-105 [facility] Comment on above: Result Comment: lisaon es Performed By: #### L [id number] ####[facility])[address] [place] [address] VANCOMYCIN, PEAKon VANCOMYCIN (UG/ML) IN SER/PLAS - PEAK 16.4 ug/mL Low 20.0-50.0 [facility] Comment on above: Order Comment: DO NO T DRAW WITH MORNING LABSVancomycin peak to be drawn at 0830 Performed By: #### L [id number] ####[facility])[address] [place] [address] VANCOMYCIN, TROUGHon 023 VANCOMYCIN (UG/ML) IN SER/PLAS - TROUGH 10.6 ug/mL Normal 5.0-20.0 [facility] Comment on above: Performed By: #### L [id number] ####[facility])[address] [place] [address] 30on 01-30-2023 30 Normal [facility] 30 Normal [facility] ANESon 01-30-2023 ANES Normal [facility] APTTon 01-30-2023 ACTIVATED PARTIAL THROMBOPLASTIN TIME IN PPP BY COAGULATION ASSAY 41.6 Seconds High 25.0-35.0 [facility] Comment on above: Result Comment: Clin ical significance of the APTT is questionable in the presence of heparin. Performed By: #### L [id number] ####[facility])[address] [place] [address] BASIC METABOLIC PANELon 01-09 Anion gap [Moles/Vol] 7 mmol/L Normal 7-20 [facility] Comment on above: Performed By: #### L [id number] ####[facility])[address] [place] [address] Calcium [Mass/Vol] 8.2 mg/dL Low 8.6-10.3 [facility] Comment on above: Performed By: #### L [id number] ####[facility] [place] [address] Chloride [Moles/Vol] 105 mmol/L Normal 98-107 [facility] Comment on above: Performed By: #### L [id number] ####[facility] [place] [address] CO2 [Moles/Vol] 23 mmol/L Normal 21-31 [facility] Comment on above: Performed By: #### L [id number] ####[facility])[address] [place] [address] Creatinine [Mass/Vol] 0.43 mg/dL Low 0.70-1.30 [facility] Comment on above: Performed By: #### L [id number] ####[facility])[address] [place] [address] GLOMERULAR FILTRATION RATE ML/MIN/1.73 SQ M.PREDICTED 110.6 mL/min/1.73m*2 Normal >60.0 [facility] Comment on above: Result Comment: [facility]???s estimated glomerular filtration rate (eGFR) will [...] of individuals. Performed By: #### L [id number] ####[facility])[address] [place] [address] Glucose [Mass/Vol] 175 mg/dL High 70-100 [facility] Comment on above: Performed By: #### L [id number] ####[facility])[address] [place] [address] Potassium [Moles/Vol] 3.7 mmol/L Normal 3.5-5.1 [facility] Comment on above: Performed By: #### L [id number] ####[facility])[address] [place] [address] Sodium [Moles/Vol] 131 mmol/L Low 136-145 [facility] Comment on above: Performed By: #### L [id number] ####[facility])[address] [place] [address] Urea nitrogen [Mass/Vol] 11 mg/dL Normal 7-25 [facility] Comment on above: Performed By: #### L [id number] ####[facility])[address] [place] [address] UREA NITROGEN/CREATININE (MASS RATIO) IN SER/PLAS 25.6 Normal [facility] Comment on above: Performed By: #### L [id number] ####[facility])[address] [place] [address] Anion gap [Moles/Vol] 9 mmol/L Normal 7-20 [facility] Comment on above: Performed By: #### L [id number] ####[facility])[address] [place] [address] Calcium [Mass/Vol] 7.6 mg/dL Low 8.6-10.3 [facility] Comment on above: Performed By: #### L [id number] ####[facility])[address] [place] [address] Chloride [Moles/Vol] 104 mmol/L Normal 98-107 [facility] Comment on above: Performed By: #### L [id number] ####[facility])[address] [place] [address] CO2 [Moles/Vol] 22 mmol/L Normal 21-31 [facility] Comment on above: Performed By: #### L [id number] ####[facility])[address] [place] [address] Creatinine [Mass/Vol] 0.47 mg/dL Low 0.70-1.30 [facility] Comment on above: Performed By: #### L [id number] ####[facility])[address] [place] [address] GLOMERULAR FILTRATION RATE ML/MIN/1.73 SQ M.PREDICTED 107.7 mL/min/1.73m*2 Normal >60.0 [facility] Comment on above: Result Comment: [facility]???s estimated glomerular filtration rate (eGFR) will [...] of individuals. Performed By: #### L [id number] ####[facility])[address] [place] [address] Glucose [Mass/Vol] 191 mg/dL High 70-100 [facility] Comment on above: Performed By: #### L [id number] ####[facility])[address] [place] [address] Potassium [Moles/Vol] 4.1 mmol/L Normal 3.5-5.1 [facility] Comment on above: Performed By: #### L [id number] ####[facility])[address] [place] [address] Sodium [Moles/Vol] 131 mmol/L Low 136-145 [facility] Comment on above: Performed By: #### L [id number] ####[facility] [place] [address] Urea nitrogen [Mass/Vol] 12 mg/dL Normal 7-25 [facility] Comment on above: Performed By: #### L [id number] ####[facility])[address] [place] [address] UREA NITROGEN/CREATININE (MASS RATIO) IN SER/PLAS 25.5 Normal [facility] Comment on above: Performed By: #### L [id number] ####[facility])[address] [place] [address] BLOOD CULTUREon 01-30-2023 Bacteria identified Cx Nom (Bld) No growth at 5 days Normal [facility] Comment on above: Order Comment: From a different site than #1. Performed By: #### L [id number] ####[facility])[address] [place] [address] CBCon 01-30-2023 Erythrocyte distribution width (RBC) [Ratio] 15.8 % High 11.5-15.0 [facility] Comment on above: Performed By: #### L [id number] ####[facility])[address] [place] [address] ERYTHROCYTE MEAN CORPUSCULAR HEMOGLOBIN CONCENTRATION (G/DL) BY AUTOMATED 32.3 g/dL Normal 32.0-35.0 [facility] Comment on above: Performed By: #### L [id number] ####[facility])[address] [place] [address] Hematocrit (Bld) [Volume fraction] 24.8 % Low 39.0-55.0 [facility] Comment on above: Performed By: #### L [id number] ####[facility])[address] [place] [address] Hemoglobin (Bld) [Mass/Vol] 8.0 g/dL Low 13.0-17.0 [facility] Comment on above: Performed By: #### L [id number] ####[facility] ([facility])[address] [place] [address] IMMATURE PLATELET FRACTION % 10.3 % High 0.8-6.3 [facility] Comment on above: Performed By: #### L [id number] ####[facility] [place] [address] MCH (RBC) [Entitic mass] 27.2 pg Normal 27.0-33.0 [facility] Comment on above: Performed By: #### L [id number] ####[facility])[address] [place] [address] MCV (RBC) [Entitic vol] 84.4 fL Normal 82.0-98.0 [facility] on above: Performed By: #### L [id number] ####[facility])[address] [place] [address] PLATELETS (10*3/UL) IN BLOOD AUTOMATED COUNT 79 10*3/uL Low 150-400 [facility] Comment on above: Performed By: #### L [id number] ####[facility])[address] [place] [address] RBC (Bld) [#/Vol] 2.94 10*6/uL Low 4.20-5.70 [facility] Comment on above: Performed By: #### L [id number] ####[facility])[address] [place], [place] [address] WBC (Bld) [#/Vol] 5.09 10*3/uL Normal 4.00-10.60 [facility] Comment on above: Performed By: #### L [id number] ####[facility])[address] [place] [address] CBC WITH AUTO DIFFERENTIALon 01-30-2023 Erythrocyte distribution width (RBC) [Ratio] 15.6 % High 11.5-15.0 [facility] Comment on above: Performed By: #### L [id number] ####[facility])[address] [place] [address] ERYTHROCYTE MEAN CORPUSCULAR HEMOGLOBIN CONCENTRATION (G/DL) BY AUTOMATED 33.5 g/dL Normal 32.0-35.0 [facility] Comment on above: Performed By: #### L [id number] ####[facility])[address] [place] [address] Hematocrit (Bld) [Volume fraction] 24.2 % Low 39.0-55.0 [facility] Comment on above: Performed By: #### L [id number] ####[facility])[address] [place] [address] Hemoglobin (Bld) [Mass/Vol] 8.1 g/dL Low 13.0-17.0 [facility] Comment on above: Performed By: #### L [id number] ####[facility] [place] [address] IMMATURE PLATELET FRACTION % 10.2 % High 0.8-6.3 [facility] Comment on above: Performed By: #### L [id number] ####[facility])[address] [place] [address] MCH (RBC) [Entitic mass] 28.1 pg Normal 27.0-33.0 [facility] Comment on above: Performed By: #### L [id number] ####[facility])[address] [place] [address] MCV (RBC) [Entitic vol] 84.0 fL Normal 82.0-98.0 [facility] Comment on above: Performed By: #### L [id number] ####[facility])[address] [place] [address] NRBC (PER 100 WBCS) BY AUTOMATED COUNT 0.0 % Normal 0.0-0.0 [facility] Comment on above: Performed By: #### L [id number] ####[facility])[address] [place], [place] [address] PLATELETS (10*3/UL) IN BLOOD AUTOMATED COUNT 80 10*3/uL Low 150-400 [facility] Comment on above: Performed By: #### L [id number] ####[facility])[address] [place] [address] RBC (Bld) [#/Vol] 2.88 10*6/uL Low 4.20-5.70 [facility] Comment on above: Performed By: #### L [id number] ####[facility])[address] [place] [address] WBC (Bld) [#/Vol] 4.26 10*3/uL Normal 4.00-10.60 [facility] Comment on above: Performed By: #### L [id number] ####[facility])[address] [place] [address] CONSULTon 01-30-2023 CONSULT Normal [facility] CONSULT Normal [facility] FIBRINOGENon 01-30-2023 Magnesium [Mass/Vol] 219 mg/dL Normal 150-425 [facility] Comment on above: Performed By: #### L [id number] ####[facility])[address] [place] [address] HEPARIN LEVELon 01-30-2023 HEPARIN UNFRACTIONATED (U/ML) IN PPP BY CHROMOGENIC METHOD >1.00 Critically high 0.3-0.7 [facility] Comment on above: Result Comment: [place] roxaban and Apixaban will interfere with the anti Xa assay used to monitor UFH and LMWH. Performed By: #### L [id number] ####[facility])[address] [place] [address] HEPARIN UNFRACTIONATED (U/ML) IN PPP BY CHROMOGENIC METHOD >1.00 Critically high 0.3-0.7 [facility] Comment on above: Result Comment: [place] roxaban and Apixaban will interfere with the anti Xa assay used to monitor UFH and LMWH. Performed By: #### L [id number] ####[facility])[address] [place] [address] HEPATIC FUNCTION PANELon Albumin [Mass/Vol] 2.8 g/dL Low 3.5-5.7 [facility] Comment on above: Performed By: #### L [id number] ####[facility])[address] [place] [address] ALP [Catalytic activity/Vol] 42 U/L Normal 34-104 [facility] Comment on above: Performed By: #### L [id number] ####[facility])[address] [place] [address] ALT [Catalytic activity/Vol] 13 U/L Normal 7-52 [facility] Comment on above: Performed By: #### L [id number] ####[facility] [place] [address] AST [Catalytic activity/Vol] 17 U/L Normal 13-39 [facility] Comment on above: Performed By: #### L [id number] ####[facility])[address] [place] [address] Bilirubin [Mass/Vol] 2.6 mg/dL High 0.3-1.0 [facility] Comment on above: Performed By: #### L [id number] ####[facility])[address] [place] [address] Magnesium [Mass/Vol] 1.1 mg/dL High 0-0.2 [facility] Comment on above: Performed By: #### L [id number] ####[facility])[address] [place] [address] Protein [Mass/Vol] 5.4 g/dL Low 6.0-8.3 [facility] Comment on above: Performed By: #### L [id number] ####[facility])[address] [place] [address] LACTIC ACID WITH 4 HOUR REFL EXon 01-30-2023 LACTATE (MMOL/L) IN SER/PLAS 0.8 mmol/L Normal 0.5-2.2 [facility] Comment on above: Performed By: #### L [id number] ####[facility])[address] [place] [address] MAGNESIUMon 01-30-2023 Magnesium [Mass/Vol] 2.2 mg/dL Normal 1.9-2.7 [facility] Comment on above: Performed By: #### L [id number] ####[facility])[address] [place] [address] Magnesium [Mass/Vol] 1.7 mg/dL Low 1.9-2.7 [facility] Comment on above: Performed By: #### L [id number] ####[facility])[address] [place] [address] MANUAL DIFFERENTIALon 2022 BASOPHILS (10*3/UL) IN BLOOD BY CALCULATION 0.01 10*3/uL Normal 0.00-0.20 [facility] Comment on above: Performed By: #### L [id number] ####[facility])[address] [place] [address] BASOPHILS/100 LEUKOCYTES IN BLOOD BY AUTOMATED COUNT 0.2 % Normal 0.0-1.0 [facility] Comment on above: Performed By: #### L [id number] ####[facility])[address] [place] [address] EOSINOPHILS (10*3/UL) IN BLOOD BY CALCULATION 0.00 10*3/uL Normal 0.00-0.50 [facility] Comment on above: Performed By: #### L [id number] ####[facility])[address] [place] [address] EOSINOPHILS/100 LEUKOCYTES IN BLOOD BY AUTOMATED COUNT 0.0 % Normal 0.0-6.0 [facility] Comment on above: Performed By: #### L [id number] ####[facility])[address] [place] [address] IMMATURE GRANULOCYTES (10*3/UL) IN BLOOD BY CALCULATION 0.10 10*3/uL Normal 0.00-0.20 [facility] Comment on above: Performed By: #### L [id number] ####[facility])[address] [place] [address] IMMATURE GRANULOCYTES/100 LEUKOCYTES IN BLOOD BY AUTOMATED COUNT 2.3 % High 0.0-1.0 [facility] Comment on above: Performed By: #### L [id number] ####[facility])[address] [place] [address] LYMPHOCYTES (10*3/UL) IN BLOOD BY CALCULATION 0.23 10*3/uL Low 1.20-4.00 [facility] Comment on above: Performed By: #### L [id number] ####[facility])[address] [place] [address] LYMPHOCYTES/100 LEUKOCYTES IN BLOOD BY AUTOMATED COUNT 5.4 % Low 20.0-45.0 [facility] Comment on above: Performed By: #### L [id number] ####[facility])[address] [place] [address] MONOCYTES (10*3/UL) IN BLOOD BY CALCUATION 0.18 10*3/uL Normal 0.10-1.00 [facility] Comment on above: Performed By: #### L [id number] ####[facility])[address] [place] [address] MONOCYTES/100 LEUKOCYTES IN BLOOD BY AUTOMATED COUNT 4.2 % Low 5.0-12.0 [facility] Comment on above: Performed By: #### L [id number] ####[facility])[address] [place] [address] NEUTROPHILS (10*3/UL) IN BLOOD BY CALCULATION 3.7 10*3/uL Normal 1.6-7.6 [facility] Comment on above: Performed By: #### L [id number] ####[facility])[address] [place] [address] NEUTROPHILS/100 LEUKOCYTES IN BLOOD BY AUTOMATED COUNT 87.9 % High 40.0-72.0 [facility] Comment on above: Performed By: #### L [id number] ####[facility])[address] [place] [address] PHOSPHORUSon 01-30-2023 Magnesium [Mass/Vol] 2.8 mg/dL Normal 2.5-5.0 [facility] Comment on above: Performed By: #### L [id number] ####[facility])[address] [place] [address] POCT GLUCOSE METER UNSOLICIT ED RESULTSon 01-30-2023 Glucose [Mass/Vol] 128 mg/dL High 70-105 [facility] Comment on above: Result Comment: logan licea Performed By: #### L [id number] ####[facility])[address] [place] [address] Glucose [Mass/Vol] 118 mg/dL High 70-105 [facility] Comment on above: Result Comment: rsuz wendy Performed By: #### L [id number] ####[facility] [place] [address] Glucose [Mass/Vol] 157 mg/dL High 70-105 [facility] Comment on above: Result Comment: ebol tz Performed By: #### L [id number] ####[facility] [place] [address] Glucose [Mass/Vol] 192 mg/dL High 70-105 [facility] Comment on above: Result Comment: [email or web address] [email or web address] Performed By: #### L [id number] ####[facility])[address] [place] [address] PROTIME-INRon 01-30-2023 INR IN PPP BY COAGULATION ASSAY 1.68 High 0.90-1.10 [facility] Comment on above: Result Comment: ACCC [...] CHEST 1995;[id number]. Performed By: #### L [id number] ####[facility])[address] [place] [address] PROTHROMBIN TIME (PT) IN PPP BY COAGULATION ASSAY 19.6 Seconds High 12.3-14.8 [facility] Comment on above: Performed By: #### L [id number] ####[facility])[address] [place] [address] ANESon 01-29-2023 ANES Normal [facility] APTTon 01-29-2023 ACTIVATED PARTIAL THROMBOPLASTIN TIME IN PPP BY COAGULATION ASSAY 33.0 Seconds Normal 25.0-35.0 [facility] Comment on above: Result Comment: Clin ical significance of the APTT is questionable in the presence of heparin. Performed By: #### L [id number] ####[facility])[address] [place] [address] BASIC METABOLIC PANELon 01-09 Anion gap [Moles/Vol] 10 mmol/L Normal 7-20 [facility] Comment on above: Performed By: #### L [id number] ####[facility])[address] [place] [address] Calcium [Mass/Vol] 7.6 mg/dL Low 8.6-10.3 [facility] Comment on above: Performed By: #### L [id number] ####[facility])[address] [place] [address] Chloride [Moles/Vol] 101 mmol/L Normal 98-107 [facility] Comment on above: Performed By: #### L [id number] ####[facility])[address] [place] [address] CO2 [Moles/Vol] 22 mmol/L Normal 21-31 [facility] Comment on above: Performed By: #### L [id number] ####[facility])[address] [place] [address] Creatinine [Mass/Vol] 0.54 mg/dL Low 0.70-1.30 [facility] Comment on above: Performed By: #### L [id number] ####[facility])[address] [place] [address] GLOMERULAR FILTRATION RATE ML/MIN/1.73 SQ M.PREDICTED 103.3 mL/min/1.73m*2 Normal >60.0 [facility] Comment on above: Result Comment: [facility]???s estimated glomerular filtration rate (eGFR) will [...] of individuals. Performed By: #### L [id number] ####[facility])[address] [place] [address] Glucose [Mass/Vol] 139 mg/dL High 70-100 [facility] Comment on above: Performed By: #### L [id number] ####[facility])[address] [place] [address] Potassium [Moles/Vol] 4.1 mmol/L Normal 3.5-5.1 [facility] Comment on above: Performed By: #### L [id number] ####[facility])[address] [place] [address] Sodium [Moles/Vol] 129 mmol/L Low 136-145 [facility] Comment on above: Performed By: #### L [id number] ####[facility] [facility] [place] [address] Urea nitrogen [Mass/Vol] 13 mg/dL Normal 7-25 [facility] Comment on above: Performed By: #### L [id number] ####[facility])[address] [place] [address] UREA NITROGEN/CREATININE (MASS RATIO) IN SER/PLAS 24.1 Normal [facility] Comment on above: Performed By: #### L [id number] ####[facility])[address] [place] [address] CBCon 01-29-2023 Erythrocyte distribution width (RBC) [Ratio] 16.4 % High 11.5-15.0 [facility] Comment on above: Performed By: #### L [id number] ####[facility] [place] [address] ERYTHROCYTE MEAN CORPUSCULAR HEMOGLOBIN CONCENTRATION (G/DL) BY AUTOMATED 30.8 g/dL Low 32.0-35.0 [facility] Comment on above: Performed By: #### L [id number] ####[facility] [place] [address] Hematocrit (Bld) [Volume fraction] 22.1 % Low 39.0-55.0 [facility] Comment on above: Performed By: #### L [id number] ####[facility] [place] [address] Hemoglobin (Bld) [Mass/Vol] 6.8 g/dL Low 13.0-17.0 [facility] Comment on above: Performed By: #### L [id number] ####[facility] [place] [address] IMMATURE PLATELET FRACTION % 11.1 % High 0.8-6.3 [facility] Comment on above: Performed By: #### L [id number] ####[facility] [place] [address] MCH (RBC) [Entitic mass] 26.5 pg Low 27.0-33.0 [facility] Comment on above: Performed By: #### L [id number] ####[facility] [place] [address] MCV (RBC) [Entitic vol] 86.0 fL Normal 82.0-98.0 [facility] Comment on above: Performed By: #### L [id number] ####[facility] [place] [address] PLATELETS (10*3/UL) IN BLOOD AUTOMATED COUNT 96 10*3/uL Low 150-400 [facility] Comment on above: Performed By: #### L [id number] ####[facility] [place] [address] RBC (Bld) [#/Vol] 2.57 10*6/uL Low 4.20-5.70 [facility] Comment on above: Performed By: #### L [id number] ####[facility] [place] [address] WBC (Bld) [#/Vol] 4.09 10*3/uL Normal 4.00-10.60 [facility] Comment on above: Performed By: #### L [id number] ####[facility] [place] [address] CBC AUTO DIFFon 01-29-2023 BASO # 0.0 103/ul Normal 0.0-0.1 [facility] Comment on above: Performed By: #### P TT, PT #### [facility] [address] [address] [address] Joselyn Coffey Basophils/100 WBC (Bld) 0.2 % Normal 0.2-2.0 [facility] Comment on above: Performed By: #### P TT, PT #### [facility] [facility] [address] [address] [address] Joselyn Coffey EO # 0.0 103/ul Normal 0.0-0.7 [facility] Comment on above: Performed By: #### P TT, PT #### [facility] [address] [address] [address] Joselyn Coffey Eosinophils/100 WBC (Bld) 0.0 % Critically low 0.9-7.0 [facility] Comment on above: Performed By: #### P TT, PT #### [facility] [address] [place] [address] Dr. Joselyn Coffey Erythrocyte distribution width (RBC) [Ratio] 17.7 % Critically high 11.0-15.0 [facility] Comment on above: Performed By: #### P TT, PT #### [facility] [address] [place] [address] Dr. Joselyn Coffey Hematocrit (Bld) [Volume fraction] 17.5 % Critically low 42.0-54.0 [facility] Comment on above: Performed By: #### P TT, PT #### [facility] [address] [place] [address] Dr. Joselyn Coffey Hemoglobin (Bld) [Mass/Vol] 5.1 g/dL Critically low 14.0-18.0 [facility] Comment on above: Performed By: #### P TT, PT #### [facility] [address] [place] [address] Dr. Joselyn Coffey IG # 0.02 10e3/ul Normal 0.00-0.03 [facility] Comment on above: Performed By: #### P TT, PT #### [facility] [address] [place] [address] Dr. Joselyn Coffey IG % 0.4 % Normal 0.0-0.5 [facility] Comment on above: Performed By: #### P TT, PT #### [facility] [address] [place] [address] Dr. Joselyn Coffey LYMPH # 0.3 103/ul Critically low 1.2-3.8 [facility] Comment on above: Performed By: #### P TT, PT #### [facility] [address] [place] [address] Dr. Joselyn Coffey Lymphocytes/100 WBC (Bld) 5.8 % Critically low 20.5-60.0 [facility] Comment on above: Performed By: #### P TT, PT #### [facility] [address] [place] [address] Dr. Joselyn Coffey MANUAL DIFF REQ NO Normal [facility] Comment on above: Performed By: #### P TT, PT #### [facility] [address] [place] [address] Dr. Joselyn Coffey MCH (RBC) [Entitic mass] 25.5 pg Critically low 25.9-34.0 [facility] Comment on above: Performed By: #### P TT, PT #### [facility] [address] [place] [address] Dr. Joselyn Coffey MCHC (RBC) [Mass/Vol] 29.1 g/dL Critically low 29.9-35.2 [facility] Comment on above: Performed By: #### P TT, PT #### [facility] [address] [place] [address] Dr. Joselyn Coffey MCV (RBC) [Entitic vol] 87.5 fL Normal 80.0-94.0 [facility] Comment on above: Performed By: #### P TT, PT #### [facility] [address] [place] [address] Dr. Joselyn Coffey MONO # 0.5 103/ul Normal 0.3-0.8 [facility] Comment on above: Performed By: #### P TT, PT #### [facility] [address] [place] [address] Dr. Joselyn Coffey Monocytes/100 WBC (Bld) 10.4 % Normal 1.7-12.0 [facility] Comment on above: Performed By: #### P TT, PT #### [facility] [address] [place] [address] Dr. Joselyn Coffey NEUT # 4.3 103/ul Normal 1.4-6.5 [facility] Comment on above: Performed By: #### P TT, PT #### [facility] [address] [place] [address] Dr. Joselyn Coffey Neutrophils/100 WBC (Bld) 83.2 % Critically high 43.0-75.0 [facility] Comment on above: Performed By: #### P TT, PT #### [facility] [address] [place] [address] Dr. Joselyn Coffey Platelet mean volume (Bld) [Entitic vol] 12.4 fL Normal 9.5-13.5 [facility] Comment on above: Performed By: #### P TT, PT #### [facility] [address] [address] [address] Joselyn Coffey PLT 113 103/ul Critically low 150-450 [facility] Comment on above: Performed By: #### P TT, PT #### [facility] [address] [address] [address] Joselyn Coffey RBC 2.00 106/ul Critically low 4.70-6.10 [facility] Comment on above: Performed By: #### P TT, PT #### [facility] [address] [address] [address] Joselyn Coffey WBC 5.2 103/ul Normal 4.0-11.0 [facility] Comment on above: Performed By: #### P TT, PT #### [facility] [address] [address] [address] Joselyn Coffey CTA ABD MARY JANE [...] by: LUZ NIETO Date: 2023-01-29 17:48 Normal [facility] EDPROVon 01-29-2023 EDPROV Normal [facility] FIBRINOGENon 01-29-2023 Magnesium [Mass/Vol] 275 mg/dL Normal 150-425 [facility] Comment on above: Performed By: #### L [id number] ####[facility] ([facility])[address] [place] [address] HPon 01-29-2023 HP Normal [facility] OPNOTEon 01-29-2023 OPNOTE Normal [facility] POCT ACTIVATED CLOTTING TIME UNSOLICITED RESULTSon 01-29-2023 POC ACTIVATED CLOTTING TIME 144 sec Normal 82-152 [facility] Comment on above: Performed By: #### L [id number] ####[facility] ([facility])[address] [place] [address] POC ACTIVATED CLOTTING TIME 169 sec High 82-152 [facility] Comment on above: Performed By: #### L [id number] ####[facility] ([facility])[address] [place] [address] POC ACTIVATED CLOTTING TIME 151 sec Normal 82-152 [facility] Comment on above: Performed By: #### L [id number] ####[facility] ([facility])[address] [place] [address] POCT GLUCOSE METER UNSOLICIT ED RESULTSon 01-29-2023 Glucose [Mass/Vol] 154 mg/dL High 70-105 [facility] Comment on above: Result Comment: ekir by3 Performed By: #### L [id number] ####[facility] ([facility])[address] [place] [address] POCT PERFUSION PANEL UNSOLIC ITED RESULTSon 01-29-2023 CO2 [Moles/Vol] 24.0 mmol/L Normal 21.0-29.0 [facility] Comment on above: Performed By: #### L [id number] ####[facility] ([facility])[address] [place] [address] Glucose [Mass/Vol] 181 mg/dL High 70-105 [facility] Comment on above: Performed By: #### L [id number] ####[facility] ([facility])[address] [place] [address] HCO3 (Bld) [Moles/Vol] 22.8 mmol/L Low 23.0-28.0 [facility] Comment on above: Performed By: #### L [id number] ####[facility] ([facility])[address] [place] [address] Hematocrit (Bld) [Volume fraction] 23 % Low 38-51 [facility] Comment on above: Performed By: #### L [id number] ####[facility] [place] [address] Hemoglobin (Bld) [Mass/Vol] 7.8 g/dL Low 12.0-17.0 [facility] Comment on above: Performed By: #### L [id number] ####[facility] ([facility])[address] [place] [address] POCT BASE EXCESS -2.0 mmol/L Normal -2.0-3.0 [facility] Comment on above: Performed By: #### L [id number] ####[facility] ([facility])[address] [address] POCT IONIZED CALCIUM 1.13 mmol/L Normal 1.12-1.32 [facility] Comment on above: Performed By: #### L [id number] ####[facility] ([facility])[address] [address] POCT PCO2 39.9 mmHg Low 41.0-51.0 [facility] Comment on above: Performed By: #### L [id number] ####[facility] ([facility])[address] [place] [address] POCT PH 7.37 Normal 7.31-7.41 [facility] Comment on above: Performed By: #### L [id number] ####[facility] ([facility])[address] [address] POCT PO2 436 mmHg High 80-105 [facility] Comment on above: Performed By: #### L [id number] ####[facility] ([facility])[address] [address] POCT SO2 100 % High 95-98 [facility] Comment on above: Performed By: #### L [id number] ####[facility] [address] Potassium [Moles/Vol] 4.4 mmol/L Normal 3.5-4.9 [facility] Comment on above: Performed By: #### L [id number] ####[facility] ([facility])[address] [place] [address] Sodium [Moles/Vol] 135 mmol/L Low 138.0-146.0 [facility] Comment on above: Performed By: #### L [id number] ####[facility] ([facility])[address] [place] [address] CO2 [Moles/Vol] 23.0 mmol/L Normal 21.0-29.0 [facility] Comment on above: Performed By: #### L [id number] ####[facility] [place] [address] Glucose [Mass/Vol] 157 mg/dL High 70-105 [facility] Comment on above: Performed By: #### L [id number] ####[facility] ([facility])[address] [place] [address] HCO3 (Bld) [Moles/Vol] 21.5 mmol/L Low 23.0-28.0 [facility] Comment on above: Performed By: #### L [id number] ####[facility] ([facility])[address] [place] [address] Hematocrit (Bld) [Volume fraction] 19 % Low 38-51 [facility] Comment on above: Performed By: #### L [id number] ####[facility] ([facility])[address] [place] [address] Hemoglobin (Bld) [Mass/Vol] 6.5 g/dL Low 12.0-17.0 [facility] Comment on above: Performed By: #### L [id number] ####[facility] ([facility])[address] [place] [address] POCT BASE EXCESS -4.0 mmol/L Low -2.0-3.0 [facility] Comment on above: Performed By: #### L [id number] ####[facility] ([facility])[address] [place] [address] POCT IONIZED CALCIUM 1.34 mmol/L High 1.12-1.32 [facility] Comment on above: Performed By: #### L [id number] ####[facility] ([facility])[address] [place] [address] POCT PCO2 43.5 mmHg Normal 41.0-51.0 [facility] Comment on above: Performed By: #### L [id number] ####[facility] [place] [address] POCT PH 7.30 Low 7.31-7.41 [facility] Comment on above: Performed By: #### L [id number] ####[facility] ([facility])[address] [place] [address] POCT PO2 198 mmHg High 80-105 [facility] Comment on above: Performed By: #### L [id number] ####[facility] [place] [address] POCT SO2 100 % High 95-98 [facility] Comment on above: Performed By: #### L [id number] ####[facility] ([facility])[address] [place] [address] Potassium [Moles/Vol] 4.1 mmol/L Normal 3.5-4.9 [facility] Comment on above: Performed By: #### L [id number] ####[facility] [place] [address] Sodium [Moles/Vol] 134 mmol/L Low 138.0-146.0 [facility] Comment on above: Performed By: #### L [id number] ####[facility] ([facility])[address] [place] [address] CO2 [Moles/Vol] 24.0 mmol/L Normal 21.0-29.0 [facility] Comment on above: Performed By: #### L [id number] ####[facility] ([facility])[address] [place] [address] Glucose [Mass/Vol] 167 mg/dL High 70-105 [facility] Comment on above: Performed By: #### L [id number] ####[facility] ([facility])[address] [place] [address] HCO3 (Bld) [Moles/Vol] 22.5 mmol/L Low 23.0-28.0 [facility] Comment on above: Performed By: #### L [id number] ####[facility] ([facility])[address] [place] [address] Hematocrit (Bld) [Volume fraction] 24 % Low 38-51 [facility] Comment on above: Performed By: #### L [id number] ####[facility] ([facility])[address] [address] Hemoglobin (Bld) [Mass/Vol] 8.2 g/dL Low 12.0-17.0 [facility] Comment on above: Performed By: #### L [id number] ####[facility] ([facility])[address] [place] [address] POCT BASE EXCESS -3.0 mmol/L Low -2.0-3.0 [facility] Comment on above: Performed By: #### L [id number] ####[facility] ([facility])[address] [place], [place] [address] POCT IONIZED CALCIUM 1.17 mmol/L Normal 1.12-1.32 [facility] Comment on above: Performed By: #### L [id number] ####[facility] ([facility])[address] [place], [place] [address] POCT PCO2 39.6 mmHg Low 41.0-51.0 [facility] Comment on above: Performed By: #### L [id number] ####[facility] ([facility])[address] [place] [address] POCT PH 7.36 Normal 7.31-7.41 [facility] Comment on above: Performed By: #### L [id number] ####[facility] ([facility])[address] [place] [address] POCT PO2 252 mmHg High 80-105 [facility] Comment on above: Performed By: #### L [id number] ####[facility] ([facility])[address] [place] [address] POCT SO2 100 % High 95-98 [facility] Comment on above: Performed By: #### L [id number] ####[facility] ([facility])[address] [place] [address] Potassium [Moles/Vol] 4.6 mmol/L Normal 3.5-4.9 [facility] Comment on above: Performed By: #### L [id number] ####[facility] ([facility])[address] [place] [address] Sodium [Moles/Vol] 133 mmol/L Low 138.0-146.0 [facility] Comment on above: Performed By: #### L [id number] ####[facility] ([facility])[address] [place] [address] PRBC LEUKOREDUCEDon 01-30-20 23 ABO and Rh group Nom (Bld) Cross Match Result Compatible Unit Blood Type O Pos Unit Number [id number] Status Information Issued Product ID Red Blood Cells Product Code [id number] Issue Date/Time [id number] Cross Match Result Compatible Unit Blood Type O Pos Unit Number [id number] Status Information Issued Product ID Red Blood Cells Product Code [id number] Issue Date/Time [id number] [facility] Comment on above: Performed By: #### C ESTHELA #### [facility] [address] [address] [address] Joselyn Coffey PROF CHEM 8 (BAS METB)on Anion gap [Moles/Vol] 12.3 mmol/L Normal [facility] Comment on above: Performed By: #### B MP #### [facility] [address] [address] [address] Joselyn Coffey Calcium [Mass/Vol] 7.3 mg/dL Critically low 8.5-10.1 Th [facility] Comment on above: Performed By: #### B MP #### [facility] [address] [address] [address] Joselyn Coffey Chloride [Moles/Vol] 100 mmol/L Normal 98-107 [facility] Comment on above: Performed By: #### B MP #### [facility] [address] [place] [address] Dr. Joselyn Coffey CO2 [Moles/Vol] 23.7 mmol/L Normal 21.0-32.0 [facility] Comment on above: Performed By: #### B MP #### [facility] [address] [place] [address] Dr. Joselyn Coffey Creatinine [Mass/Vol] 0.82 mg/dL Normal 0.70-1.30 [facility] Comment on above: Performed By: #### B MP #### [facility] [address] [place] [address] Dr. Joselyn Coffey EGFR-AF NIGERIEN >60 Normal >=60 [facility] Comment on above: Performed By: #### B MP #### [facility] [address] [place] [address] Dr. Joselyn Coffey EGFR-NON AF NIGERIEN >60 Normal >=60 [facility] Comment on above: Performed By: #### B MP #### [facility] [address] [place] [address] Dr. Joselyn Coffey Glucose [Mass/Vol] 234 mg/dL Critically high 74-106 T [facility] Comment on above: Performed By: #### B MP #### [facility] [address] [place] [address] Dr. Joselyn Coffey Potassium [Moles/Vol] 4.0 mmol/L Normal 3.5-5.1 [facility] Comment on above: Performed By: #### B MP #### [facility] [address] [place] [address] Dr. Joselyn Coffey Sodium [Moles/Vol] 132 mmol/L Critically low 136-145 [facility] Comment on above: Performed By: #### B MP #### [facility] [address] [place] [address] Dr. Joselyn Coffey Urea nitrogen [Mass/Vol] 14.0 mg/dL Normal 7.0-18.0 [facility] Comment on above: Performed By: #### B MP #### [facility] [address] [place] [address] Dr. Joselyn Coffey Urea nitrogen/Creatinine [Mass ratio] 17.1 mg/mg Normal [facility] Comment on above: Performed By: #### B MP #### [facility] [address] [place] [address] Dr. Joselyn Coffey PROTIMEon 01-29-2023 INR Coag (PPP) [Relative time] 1.32 {INR} Normal [facility] Comment on above: Performed By: #### P TT, PT #### [facility] [address] [place] [address] Dr. Joselyn Coffey INR GUIDELINES SEE BELOW Normal [facility] Comment on above: Result Comment: SNOW RED INR: 2.0 - 3.0 CONDITIONS NOT LISTED BELOW 2.5 - 3.5 FOR PROSTHETIC HEART VALVE REPLACEMENT 2.5 - 3.5 RECURRENT THROMBOSIS Performed By: #### P TT, PT #### [facility] [address] [place] [address] Dr. Joselyn Coffey PT Coag (PPP) [Time] 13.8 s Critically high 9.0-11.6 [facility] Comment on above: Performed By: #### P TT, PT #### [facility] [address] [place] [address] Dr. Joselyn Coffey PROTIME-INRon 01-29-2023 INR IN PPP BY COAGULATION ASSAY 1.69 High 0.90-1.10 [facility] Comment on above: Result Comment: [facility] P RECOMMENDED INR FOR WARFARIN THERAPY CONDITION INRPROPHYLAXIS OF VENOUS THROMBOSIS 2-3(HIGH-RISK SURGERY)TREATMENT OF VENOUS THROMBOSIS 2-3TREATMENT OF PULMONARY EMBOLISM 2-3PREVENTION OF SYSTEMIC EMBOLISM: 2-3 ACUTE MYOCARDIAL INFARCTION TISSUE HEART VALVES VALVULAR HEART DISEASE ATRIAL FIBRILLATION RECURRENT SYSTEMIC EMBOLISMMECHANICAL HEART VALVE 2.5-3.5 FROM: ORAL ANTICOAGULANTS. MECHANISM OF ACTION, CLINICAL EFFECTIVENESS, AND OPTIMAL THERAPEUTIC RANGE. CHEST 1995;108:231S-246S. Performed By: #### L [id number] ####[facility] ([employer])[address] [place] [address] PROTHROMBIN TIME (PT) IN PPP BY COAGULATION ASSAY 19.7 Seconds High 12.3-14.8 [facility] Comment on above: Performed By: #### L [id number] ####[facility] ([employer])[address] [place] [address] PTTon 01-29-2023 aPTT Coag (Bld) [Time] 34.5 s Normal 22.3-36.2 [facility] Comment on above: Performed By: #### P TT, PT #### [facility] [address] [place] [address] Dr. Joselyn Coffey TISSUE CULTUREon 01-29-2023 Bacteria identified Cx Nom (Unsp spec) No growth at 5 days Normal [facility] Comment on above: Order Comment: Pre-o p diagnosis:LEFT GROIN PSEUDOANEURYSM Performed By: #### L [id number] ####[facility] ([employer])[address] [place] [address] GRAM STAIN RESULT Normal [facility] Comment on above: Order Comment: Pre-o p diagnosis:LEFT GROIN PSEUDOANEURYSM Result Comment: Many Polymorphonuclear leukocytesNo organisms seen Performed By: #### L [id number] ####[facility] ([facility])[address] [place] [address] TYPE AND SCREENon 01-29-2023 AB SCREEN Negative Normal [facility] Comment on above: Performed By: #### L [id number] ####[facility], ABO group Nom (Bld) O Normal [facility] Comment on above: Performed By: #### L [id number] ####[facility], RH TYPE IN BLOOD Positive Normal [facility] Comment on above: Performed By: #### L [id number] ####[facility], TYPE AND SCREEN Negative Normal [facility] Comment on above: Performed By: #### C ESTHELA #### [facility] [address] [place], [place] [address] Dr. Joselyn Coffey Coding Summary.on 01-18-2023 Coding Summary. Normal [facility] Formson 01-14-2023 Forms [id number]#1.00CD :127 Normal [facility] Physician Orderon 01-12-2023 Physician Order [id number]#1.00CD :127 [facility] Consent for Treatmenton 12-10 Consent for Treatment [id number]#1.00CD: 127 [facility] Heart and Vascular Office/Cl inic Noteon 01-06-2023 Heart and Vascular Office/Clinic Note Normal [facility] Comment on above: Result Comment: Elec tronically Signed By: Vickey WISE, Erwin Evans\.br\Date and Time Signed: 01/06/23 12:03 EDT Coding Summary.on 12-27-2022 Coding Summary. [facility] Consent for Treatmenton 12-08 Consent for Treatment [id number]#1.00CD: 127 [facility] and Vascular Office/Cl inic Noteon 12-23-2022 Heart and Vascular Office/Clinic Note Normal [facility] Comment on above: Result Comment: Elec tronically Signed By: Vickey WISE, Erwin Evans\.br\Date and Time Signed: 12/23/22 14:51 EDT Coding Summary.on 12-20-2022 Coding Summary. Normal [facility] Consent for Treatmenton Consent for Treatment [id number]#1.00CD: 127 Normal [facility] Heart and Vascular Office/Cl inic Noteon 12-09-2022 Heart and Vascular Office/Clinic Note Normal [facility] Comment on above: Result Comment: Elec tronically Signed By: Vickey WISE, Erwin Evans\.br\Date and Time Signed: 12/09/22 12:18 EST Outside HPon 12-09-2022 Outside HP [id number]#1.00CD: 127 Normal [facility] Outside Labson 12-09-2022 Outside Labs [id number]#1.00CD: 127 Normal [facility] Outside Progress Noteon Outside Progress Note [id number]#1.00CD: 127 Normal [facility] Outside Radiologyon 12-10-19 Outside Radiology [id number]#1.00CD: 127 Normal [facility] Outside Recordson 12-09-2022 Outside Records [id number]#1.00CD: 127 Normal [facility] Coding Summary.on 11-30-2022 Coding Summary. [facility] Consent for Treatmenton 11-10 Consent for Treatment [id number]#1.00CD: 127 Normal [facility] Heart and Vascular Office/Cl inic Noteon 11-22-2022 Heart and Vascular Office/Clinic Note Normal [facility] Comment on above: Result Comment: Elec tronically Signed By: Vickey WISE, Ewrin Evans\.br\Date and Time Signed: 11/22/22 12:14 EST CARDIAC MARCO A ADMITon 023 CK [Catalytic activity/Vol] 109 U/L Normal 39-308 [facility] Comment on above: Performed By: #### C MADM, CMP #### [facility] [address] [address] [address] Joselyn Coffey CK.MB [Mass/Vol] 0.94 ng/mL Normal <=3.60 [facility] Comment on above: Performed By: #### C MADM, CMP #### [facility] [address] [place] [address] Dr. Joselyn Coffey HSTROP 8.1 pg/mL Normal 4.0-76.1 [facility] Comment on above: Result Comment: CUT- OFF POINTS HAVE BEEN ESTABLISHED BASED ON THE FOURTH UNIVERSAL DEFINITIONS OF MYOCARDIAL INFARCTION. THE UPPER REFERENCE LIMIT (URL) OF TROPONIN, DEFINED THE 99TH PERCENTILE OF cTnI DISTRIBUTION IN A REFERENCE POPULATION, HAS BEEN CONFIRMED THE DECISION THRESHOLD FOR LA DIAGNOSIS. Performed By: #### C CARLYNM, CMP #### [facility] [address] [place] [address] Dr. Joselyn Coffey CHULA 144 ng/mL Critically high 16-96 [facility] Comment on above: Performed By: #### C MADM, CMP #### [facility] [address] [address] [address] Joselyn Coffey CBC AUTO DIFFon 11-13-2022 BASO # 0.0 103/ul Normal 0.0-0.1 [facility] Comment on above: Performed By: #### C BCMAN #### [facility] [address] [place] [address] Dr. Joselyn Coffey Basophils/100 WBC (Bld) 0.3 % Normal 0.2-2.0 [facility] Comment on above: Performed By: #### C BCMAN #### [facility] [address] [place] [address] Dr. Joselyn Coffey EO # 0.0 103/ul Normal 0.0-0.7 [facility] Comment on above: Performed By: #### C ESTHELA #### [facility] [address] [place] [address] Dr. Joselyn Coffey Eosinophils/100 WBC (Bld) 0.3 % Critically low 0.9-7.0 [facility] Comment on above: Performed By: #### C ESTHELA #### [facility] [address] [place] [address] Dr. Joselyn Coffey Erythrocyte distribution width (RBC) [Ratio] 18.7 % Critically high 11.0-15.0 [facility] Comment on above: Performed By: #### C ESTHELA #### [facility] [address] [place] [address] Dr. Joselyn Coffey Hematocrit (Bld) [Volume fraction] 25.4 % Critically low 42.0-54.0 [facility] Comment on above: Performed By: #### Sammy PROCTOR #### [facility] [address] [place] [address] Dr. Joselyn Coffey Hemoglobin (Bld) [Mass/Vol] 8.2 g/dL Critically low 14.0-18.0 [facility] Comment on above: Performed By: #### Sammy PROCTOR #### [facility] [address] [place] [address] Dr. Joselyn Coffey IG # 0.04 10e3/ul Critically high 0.00-0.03 [facility] Comment on above: Performed By: #### Sammy PROCTOR #### [facility] [address] [place] [address] Dr. Joselyn Coffey IG % 0.7 % Critically high 0.0-0.5 [facility] Comment on above: Performed By: #### Sammy PROCTOR #### [facility] [address] [place] [address] Dr. Joselyn Coffey LYMPH # 0.4 103/ul Critically low 1.2-3.8 [facility] Comment on above: Performed By: #### Sammy PROCTOR #### [facility] [address] [place] [address] Dr. Joselyn Coffey Lymphocytes/100 WBC (Bld) 7.2 % Critically low 20.5-60.0 [facility] Comment on above: Performed By: #### C ESTHELA #### [facility] [address] [place] [address] Dr. Joselyn Coffey MANUAL DIFF REQ NO Normal [facility] Comment on above: Performed By: #### C ESTHELA #### [facility] [address] [place] [address] Dr. Joselyn Coffey MCH (RBC) [Entitic mass] 32.8 pg Normal 25.9-34.0 [facility] Comment on above: Performed By: #### C ESTHELA #### [facility] [address] [place] [address] Dr. Joselyn Coffey MCHC (RBC) [Mass/Vol] 32.3 g/dL Normal 29.9-35.2 [facility] Comment on above: Performed By: #### C ESTHELA #### [facility] [address] [place] [address] Dr. Joselyn Coffey MCV (RBC) [Entitic vol] 101.6 fL Critically high 80.0-94 .0 [facility] Comment on above: Performed By: #### C ESTHELA #### [facility] [address] [place] [address] Dr. Joselyn Coffey MONO # 0.7 103/ul Normal 0.3-0.8 [facility] Comment on above: Performed By: #### C ESTHELA #### [facility] [address] [place] [address] Dr. Joselyn Coffey Monocytes/100 WBC (Bld) 11.9 % Normal 1.7-12.0 [facility] Comment on above: Performed By: #### C ESTHELA #### [facility] [address] [place] [address] Dr. Joselyn Coffey NEUT # 4.7 103/ul Normal 1.4-6.5 [facility] Comment on above: Performed By: #### C ESTHELA #### [facility] [address] [place] [address] Dr. Joselyn Coffey Neutrophils/100 WBC (Bld) 79.6 % Critically high 43.0-75.0 [facility] Comment on above: Performed By: #### Sammy PROCTOR #### [facility] [address] [place] [address] Dr. Joselyn Coffey Platelet mean volume (Bld) [Entitic vol] 10.8 fL Normal 9.5-13.5 [facility] Comment on above: Performed By: #### Sammy PROCTOR #### [facility] [address] [place] [address] Dr. Joselyn Coffey PLT 108 103/ul Critically low 150-450 [facility] Comment on above: Performed By: #### Sammy PROCTOR #### [facility] [address] [place] [address] Dr. Joselyn Coffey RBC 2.50 106/ul Critically low 4.70-6.10 [facility] Comment on above: Performed By: #### Sammy PROCTOR #### [facility] [address] [place] [address] Dr. Joselyn Coffey WBC 6.0 103/ul Normal 4.0-11.0 [facility] Comment on above: Performed By: #### Sammy PROCTOR #### [facility] [address] [place] [address] Dr. Joselyn Coffey Covid-19 PCR ([facility])on SARS-CoV-2 (COVID-19) RNA HAIM+probe Ql (Unsp spec) Not detected Normal NOT DETECTED [facility] Comment on above: Result Comment: When [...] for this test is supported by the [employer]'s declaration that [...] Performed By: #### P TT, PT #### [facility] [address] [place] [address] Dr. Joselyn Coffey ER URINE PROFILEon 3 Bilirubin Ql (U) Negative Normal NEGATIVE [facility] Comment on above: Performed By: #### P TT, PT #### [facility] [address] [place] [address] Dr. Joselyn Coffey Clarity (U) CLEAR Normal CLEAR [facility] Comment on above: Performed By: #### P TT, PT #### [facility] [address] [place] [address] Dr. Joselyn Coffey Color (U) ORANGE Abnormal YELLOW [facility] Comment on above: Performed By: #### P TT, PT #### [facility] [address] [place] [address] Dr. Joselyn Coffey ERUAHD A micrscopic examina tion will be performed if indicated. Normal [facility] Comment on above: Performed By: #### P TT, PT #### [facility] [address] [place] [address] Dr. Joselyn Coffey Glucose Ql (U) 100 mg/dl Abnormal NEGATIVE [facility] Comment on above: Performed By: #### P TT, PT #### [facility] [address] [place] [address] Dr. Joselyn Coffey Hemoglobin Ql (U) Negative Normal NEGATIVE [facility] Comment on above: Performed By: #### P TT, PT #### [facility] [address] [place] [address] Dr. Joselyn Coffey Ketones Ql (U) Negative Normal NEGATIVE [facility] Comment on above: Performed By: #### P TT, PT #### [facility] [address] [place] [address] Dr. Joselyn Coffey LEUKOCYTES Negative Normal NEGATIVE [facility] Comment on above: Performed By: #### P TT, PT #### [facility] [address] [place] [address] Dr. Joselyn Coffey Nitrite Ql (U) Negative Normal NEGATIVE [facility] Comment on above: Performed By: #### P TT, PT #### [facility] [address] [place] [address] Dr. Joselyn Coffey pH (U) 6.0 [pH] Normal 5-9 [facility] Comment on above: Performed By: #### P TT, PT #### [facility] [address] [place] [address] Dr. Joselyn Coffey SPEC GRAVITY 1.015 Normal 1.005-<=1.02 5 [facility] Comment on above: Performed By: #### P TT, PT #### [facility] [address] [place] [address] Dr. Joselyn Coffey UA PROTEIN TRACE Normal NEGATIVE/ TRACE [facility] Comment on above: Performed By: #### P TT, PT #### [facility] [address] [place] [address] Dr. Joselyn Coffey UR MICRO IND NOT INDICATED Normal [facility] Comment on above: Performed By: #### P TT, PT #### [facility] [address] [place] [address] Dr. Joselyn Coffey Urobilinogen Qn (U) 8 {Mercedes'U}/dL Abnormal 0.2 - 1.0 [facility] Comment on above: Performed By: #### P TT, PT #### [facility] [address] [place] [address] Dr. Joselyn Coffey PROF 14(COMP METB)on 023 Albumin [Mass/Vol] 2.6 g/dL Critically low 3.4-5.0 [facility] Comment on above: Performed By: #### C ROSALINA, CMP #### [facility] [address] [place] [address] Dr. Joselyn Coffey Albumin/Globulin [Mass ratio] 0.7 {ratio} Normal [facility] Comment on above: Performed By: #### C ROSALINA, CMP #### [facility] [address] [address] [address] Joselyn Coffey ALP [Catalytic activity/Vol] 115 U/L Normal 46-116 [facility] Comment on above: Performed By: #### C CARLYNM, CMP #### [facility] [address] [address] [address] Joselyn Coffey ALT [Catalytic activity/Vol] 44 U/L Normal 16-63 [facility] Comment on above: Performed By: #### C CARLYNM, CMP #### [facility] [address] [address] [address] Joselyn Coffey Anion gap [Moles/Vol] 9.6 mmol/L Normal [facility] Comment on above: Performed By: #### C CARLYNM, CMP #### [facility] [address] [place] [address] Dr. Joselyn Coffey AST [Catalytic activity/Vol] 52 U/L Critically high 15-37 [facility] Comment on above: Performed By: #### C ROSALINA, CMP #### [facility] [address] [address] [address] Joselyn Coffey Bilirubin [Mass/Vol] 2.6 mg/dL Critically high 0.2-1.0 [facility] Comment on above: Performed By: #### C ROSALINA, CMP #### [facility] [address] [address] [address] Joselyn Coffey Calcium [Mass/Vol] 8.3 mg/dL Critically low 8.5-10.1 Th [facility] Comment on above: Performed By: #### C CARLYNM, CMP #### [facility] [address] [address] [address] Joselyn Coffey Chloride [Moles/Vol] 99 mmol/L Normal 98-107 [facility] Comment on above: Performed By: #### C CARLYNM, CMP #### [facility] [address] [address] [address] Joselyn Coffey CO2 [Moles/Vol] 26.6 mmol/L Normal 21.0-32.0 [facility] Comment on above: Performed By: #### C MADM, CMP #### [facility] [address] [address] [address] Joselyn Coffey Creatinine [Mass/Vol] 0.77 mg/dL Normal 0.70-1.30 [facility] Comment on above: Performed By: #### C MADM, CMP #### [facility] [address] [address] [address] Joselyn Coffey EGFR-AF NIGERIEN >60 Normal >=60 [facility] Comment on above: Performed By: #### C CARLYNM, CMP #### [facility] [address] [address] [address] Joselyn Coffey EGFR-NON AF NIGERIEN >60 Normal >=60 [facility] Comment on above: Performed By: #### C CARLYNM, CMP #### [facility] [address] [address] [address] Joselyn Coffey Globulin (S) [Mass/Vol] 3.5 g/dL Normal [facility] Comment on above: Performed By: #### C CARLYNM, CMP #### [facility] [address] [address] [address] Joselyn Coffey Glucose [Mass/Vol] 123 mg/dL Critically high 74-106 [facility] Comment on above: Performed By: #### C CARLYNM, CMP #### [facility] [address] [address] [address] Joselyn Coffey Potassium [Moles/Vol] 4.2 mmol/L Normal 3.5-5.1 [facility] Comment on above: Performed By: #### C CARLYNM, CMP #### [facility] [address] [address] [address] Joselyn Coffey Protein [Mass/Vol] 6.1 g/dL Critically low 6.4-8.2 [facility] Comment on above: Performed By: #### C CARLYNM, CMP #### [facility] [address] [address] [address] Joselyn Coffey Sodium [Moles/Vol] 131 mmol/L Critically low 136-145 Th [facility] Comment on above: Performed By: #### C MADM, CMP #### [facility] [address] [place] [address] Dr. Joselyn Coffey Urea nitrogen [Mass/Vol] 11.0 mg/dL Normal 7.0-18.0 [facility] Comment on above: Performed By: #### C ROSALINA, CMP #### [facility] [address] [place] [address] Dr. Joselyn Coffey Urea nitrogen/Creatinine [Mass ratio] 14.3 mg/mg Normal [facility] Comment on above: Performed By: #### C ROSALINA, CMP #### [facility] [address] [place] [address] Dr. Joselyn Coffey TYPE AND SCREENon 11-13-2022 TYPE AND SCREEN Negative Normal [facility] Comment on above: Performed By: #### C ESTHELA #### [facility] [address] [place] [address] Dr. Joselyn Coffey CBC W MANUAL DIFFon 11-01-19 23 ATYPICAL LYMPH # Normal [facility] Comment on above: Performed By: #### C ESTHELA #### [facility] [address] [place] [address] Dr. Joselyn Coffey ATYPICAL LYMPH % Normal [facility] Comment on above: Performed By: #### C ESTHELA #### [facility] [address] [place] [address] Dr. Joselyn Coffey BAND # Normal 0.0-0.3 [facility] Comment on above: Performed By: #### C ESTHELA #### [facility] [address] [place] [address] Dr. Joselyn Coffey BAND % Normal 0-5 [facility] Comment on above: Performed By: #### C ESTHELA #### [facility] [address] [place] [address] Dr. Joselyn Coffey BASOM # 0.00 103/ul Normal 0.00-0.10 [facility] Comment on above: Performed By: #### C ESTHELA #### [facility] [address] [place] [address] Dr. Joselyn Coffey BASOM % 0.0 % Critically low 0.2-2.0 [facility] Comment on above: Performed By: #### C ESTHELA #### [facility] [address] [place] [address] Dr. Joselyn Coffey BLAST # Normal [facility] Comment on above: Performed By: #### C ESTHELA #### [facility] [address] [place] [address] Dr. Joselyn Coffey BLAST % Normal [facility] Comment on above: Performed By: #### C ESTHELA #### [facility] [address] [place] [address] Dr. Joselyn Coffey CORRECTED WBC Normal 4.0-11.0 [facility] Comment on above: Performed By: #### C ESTHELA #### [facility] [address] [place] [address] Dr. Joselyn Coffey EOS # 0.00 103/ul Normal 0.00-0.70 [facility] Comment on above: Performed By: #### C ESTHELA #### [facility] [address] [place] [address] Dr. Joselyn Coffey EOS% 0.0 % Critically low 0.9-7.0 [facility] Comment on above: Performed By: #### C ESTHELA #### [facility] [address] [place] [address] Dr. Joselyn Coffey HCT 36.5 % Critically low 42.0-54.0 [facility] Comment on above: Performed By: #### C ESTHELA #### [facility] [address] [place] [address] Dr. Joselyn Coffey HGB 13.2 g/dl Critically low 14.0-18.0 [facility] Comment on above: Performed By: #### C ESTHELA #### [facility] [address] [place] [address] Dr. Joselyn Coffey LYMPHM # 0.35 103/ul Critically low 1.20-3.80 [facility] Comment on above: Performed By: #### C ESTHELA #### [facility] [address] [place] [address] Dr. Joselyn Coffey LYMPHM% 7.0 % Critically low 20.5-60.0 [facility] Comment on above: Performed By: #### C ESTHELA #### [facility] [address] [place] [address] Dr. Joselyn Coffey MCH 31.9 pg Normal 25.9-34.0 [facility] Comment on above: Performed By: #### C ESTHELA #### [facility] [address] [place] [address] Dr. Joselyn Coffey MCHC 36.2 g/dl Critically high 29.9-35.2 [facility] Comment on above: Performed By: #### C ESTHELA #### [facility] [address] [place] [address] Dr. Joselyn Coffey MCV 88.2 fL Normal 80.0-94.0 [facility] Comment on above: Performed By: #### C ESTHELA #### [facility] [address] [place] [address] Dr. Joselyn Coffey METAMYELOCYTE # Normal [facility] Comment on above: Performed By: #### C ESTHELA #### [facility] [address] [place] [address] Dr. Joselyn Coffey METAMYELOCYTE % Normal [facility] Comment on above: Performed By: #### C ESTHELA #### [facility] [address] [place] [address] Dr. Joselyn Coffey MONOM# 0.35 103/ul Normal 0.30-0.80 [facility] Comment on above: Performed By: #### C ESTHELA #### [facility] [address] [place] [address] Dr. Joselyn Coffey MONOM% 7.0 % Normal 1.7-12.0 [facility] Comment on above: Performed By: #### C ESTHELA #### [facility] [address] [place] [address] Dr. Joselyn Coffey MPV 10.7 fL Normal 9.5-13.5 [facility] Comment on above: Performed By: #### C ESTHELA #### [facility] [address] [place] [address] Dr. Joselyn Coffey MYELOCYTE # Normal [facility] Comment on above: Performed By: #### C ESTHELA #### [facility] [address] [place] [address] Dr. Joselyn Coffey MYELOCYTE % Normal [facility] Comment on above: Performed By: #### C ESTHELA #### [facility] [address] [place] [address] Dr. Joselyn Coffey NRBC Normal [facility] Comment on above: Performed By: #### C ESTHELA #### [facility] [address] [place] [address] Dr. Joselyn Coffey PLT 79 103/ul Critically low 150-450 [facility] Comment on above: Performed By: #### C ESTHELA #### [facility] [address] [place] [address] Dr. Joselyn Coffey RBC 4.14 106/ul Critically low 4.70-6.10 [facility] Comment on above: Performed By: #### C ESTHELA #### [facility] [address] [place] [address] Dr. Joselyn Coffey RDW 13.2 % Normal 11.0-15.0 [facility] Comment on above: Performed By: #### C ESTHELA #### [facility] [address] [place] [address] Dr. Joselyn Coffey SEG # 4.30 103/ul Normal 1.40-6.50 [facility] Comment on above: Performed By: #### C ESTHELA #### [facility] [address] [place] [address] Dr. Joselyn Coffey SEG % 86.0 % Critically high 43.0-75.0 [facility] Comment on above: Performed By: #### C ESTHELA #### [facility] [address] [place] [address] Dr. Joselyn Coffey WBC 5.0 103/ul Normal 4.0-11.0 [facility] Comment on above: Performed By: #### C ESTHELA #### [facility] [address] [place] [address] Dr. Joselyn Coffey MRSA NARES #1on 11-01-2022 MRSA NARES #1 Culture Observations : NO GROWTH OF MRSA AT 48 HOURS. Normal [facility] Comment on above: Performed By: #### C BCMAN #### [facility] [address] [place] [address] Dr. Joselyn Coffey PROF CHEM 8 (BAS METB)on Anion gap [Moles/Vol] 12.7 mmol/L Normal Th [facility] Comment on above: Performed By: #### P TT, PT #### [facility] [address] [address] [address] Joselyn Coffey Calcium [Mass/Vol] 8.9 mg/dL Normal 8.5-10.1 [facility] Comment on above: Performed By: #### P TT, PT #### [facility] [address] [place] [address] Dr. Joselyn Coffey Chloride [Moles/Vol] 100 mmol/L Normal 98-107 [facility] Comment on above: Performed By: #### P TT, PT #### [facility] [address] [place] [address] Dr. Joselyn Coffey CO2 [Moles/Vol] 29.0 mmol/L Normal 21.0-32.0 [facility] Comment on above: Performed By: #### P TT, PT #### [facility] [address] [place] [address] Dr. Joselyn Coffey Creatinine [Mass/Vol] 1.06 mg/dL Normal 0.70-1.30 [facility] Comment on above: Performed By: #### P TT, PT #### [facility] [address] [place] [address] Dr. Joselyn Coffey EGFR-AF NIGERIEN >60 Normal >=60 [facility] Comment on above: Performed By: #### P TT, PT #### [facility] [address] [place] [address] Dr. Joselyn Coffey EGFR-NON AF NIGERIEN >60 Normal >=60 [facility] Comment on above: Performed By: #### P TT, PT #### [facility] [address] [address] [address] Joselyn Coffey Glucose [Mass/Vol] 278 mg/dL Critically high 74-106 T [facility] Comment on above: Performed By: #### P TT, PT #### [facility] [address] [place] [address] Dr. Joselyn Coffey Potassium [Moles/Vol] 4.7 mmol/L Normal 3.5-5.1 [facility] Comment on above: Performed By: #### P TT, PT #### [facility] [address] [place] [address] Dr. Joselyn Coffey Sodium [Moles/Vol] 137 mmol/L Normal 136-145 [facility] Comment on above: Performed By: #### P TT, PT #### [facility] [address] [place] [address] Dr. Joselyn Coffey Urea nitrogen [Mass/Vol] 17.0 mg/dL Normal 7.0-18.0 [facility] Comment on above: Performed By: #### P TT, PT #### [facility] [address] [place] [address] Dr. Joselyn Coffey Urea nitrogen/Creatinine [Mass ratio] 16.0 mg/mg Normal [facility] Comment on above: Performed By: #### P TT, PT #### [facility] [address] [place] [address] Dr. Joselyn Coffey PROTIMEon 11-01-2022 INR Coag (PPP) [Relative time] 1.10 {INR} Normal [facility] Comment on above: Performed By: #### P TT, PT #### [facility] [address] [place] [address] Dr. Joselyn Coffey INR GUIDELINES SEE BELOW Normal [facility] Comment on above: Result Comment: SNOW RED INR: 2.0 - 3.0 CONDITIONS NOT LISTED BELOW 2.5 - 3.5 FOR PROSTHETIC HEART VALVE REPLACEMENT 2.5 - 3.5 RECURRENT THROMBOSIS Performed By: #### P TT, PT #### [facility] [address] [place] [address] Dr. Joselyn Coffey PT Coag (PPP) [Time] 11.6 s Normal 9.0-11.6 [facility] Comment on above: Performed By: #### P TT, PT #### [facility] [address] [place], [place] [address] Dr. Joselyn Coffey PTTon 11-01-2022 aPTT Coag (Bld) [Time] 29.8 s Normal 22.3-36.2 [facility] Comment on above: Performed By: #### P TT, PT #### [facility] [address] [place], [place] [address] Dr. Joselyn Coffey CTA ABD MARY JANE [...] by: ANDREA ARTEAGA Date: 2022-10-20 15:34 Normal [facility] BONE MARROW SCREENon 022 BONE MARROW SCR SEE BONE MARROW SPEC IAL REPORT FORM Normal [facility] Comment on above: Performed By: #### [id number] #### [facility] [address] CBC W/DIFFon 11-09-2021 ABS IMM GRANS 0.0 10*3/uL Normal 0.0-0.2 [facility] Comment on above: Performed By: #### [id number] #### [facility] [address] [address] ABS NEUTROPHILS 2.4 10*3/uL Normal 1.6-7.6 [facility] Comment on above: Performed By: #### 5 0103, 07374 #### [facility] [address] ANISO Moderate Normal [facility] Comment on above: Performed By: #### 5 102, 46434 #### [facility] [address] [place] [address], [facility] Basophils (Bld) [#/Vol] 0.0 10*3/uL Normal 0.0-0.2 [facility] Comment on above: Performed By: #### 5 102, 18421 #### [facility] [address] [place] [address], [facility] Basophils/100 WBC (Bld) 0.6 % Normal 0.0-1.0 [facility] Comment on above: Performed By: #### 5 102, 67064 #### [facility] [address] [place] [address], [facility] ELLIPTOCYTES Slight Normal [facility] Comment on above: Performed By: #### 5 102, 88020 #### [facility] [address] [place] [address], [facility] Eosinophils (Bld) [#/Vol] 0.0 10*3/uL Normal 0.0-0.5 [facility] Comment on above: Performed By: #### 5 102, 13180 #### [facility] [address] [place] [address], [facility] Eosinophils/100 WBC (Bld) 1.2 % Normal 0.0-6.0 [facility] Comment on above: Performed By: #### 5 102, 61852 #### [facility] [address] [place] [id number], [facility] Erythrocyte distribution width (RBC) [Ratio] 26.7 % High 11.5-15.0 [facility] Comment on above: Performed By: #### 5 102, 09812 #### [facility] [address] [place] [address], [facility] Hematocrit (Bld) [Volume fraction] 37.1 % Low 39.0-50.0 [facility] Comment on above: Performed By: #### 5 102, 07246 #### [facility] [address] [place] [address], [facility] Hemoglobin (Bld) [Mass/Vol] 11.1 g/dL Low 13.0-17.0 [facility] Comment on above: Performed By: #### 5 102, 00692 #### [facility] [address] [place] [address], [facility] IMM PLATELET FRAC 4.6 % Normal 0.8-6.3 [facility] Comment on above: Performed By: #### 5 102, 43476 #### [facility] [address] [place] [address], [facility] IMMATURE GRANS 0.3 % Normal 0.0-1.0 [facility] Comment on above: Performed By: #### 5 102, 21536 #### [facility] [address] [facility] [place] [address], [facility] Lymphocytes (Bld) [#/Vol] 0.5 10*3/uL Low 1.2-4.0 [facility] Comment on above: Performed By: #### 5 102, 14633 #### [facility] [address] [facility] [place] [address], [facility] Lymphocytes/100 WBC (Bld) 13.5 % Low 20.0-45.0 [facility] Comment on above: Performed By: #### 5 102, 63433 #### [facility] [address] [facility] [place] [address], [facility] MCH (RBC) [Entitic mass] 26.9 pg Low 27.0-33.0 [facility] Comment on above: Performed By: #### 5 102, 90385 #### [facility] [address] [place] [address], [facility] MCHC (RBC) [Mass/Vol] 29.9 g/dL Low 32.0-35.0 [facility] Comment on above: Performed By: #### 5 102, 04718 #### [facility] [address] [place] [address], [facility] MCV (RBC) [Entitic vol] 90.0 fL Normal 82.0-98.0 [facility] Comment on above: Performed By: #### 5 102, 22983 #### [facility] [address] [place] [address], [facility] Monocytes (Bld) [#/Vol] 0.5 10*3/uL Normal 0.1-1.0 [facility] Comment on above: Performed By: #### 5 102, 93939 #### [facility] [address] [facility] [place] [address], [facility] MONOS 14.0 % High 5.0-12.0 [facility] Comment on above: Performed By: #### 5 102, 02697 #### [facility] [address] [facility] [place] [address], [facility] Neutrophils/100 WBC (Bld) 70.4 % Normal 40.0-72.0 [facility] Comment on above: Performed By: #### 5 102, 09468 #### [facility] [address] [place] [address], [facility] Nucleated RBC/100 WBC (Bld) [Ratio] 0 % Normal 0-0 [facility] Comment on above: Performed By: #### 5 102, 59712 #### [facility] [address] [place] [address], [facility] OVALOCYTES Slight Normal [facility] Comment on above: Performed By: #### 5 102, 79284 #### [facility] [address] [place] [address], [facility] PLAT CNT 91 10*3/uL Low 150-400 [facility] Comment on above: Performed By: #### 5 010, 19689 #### [facility] [address] [place] [address], [facility] POIK Moderate Normal [facility] Comment on above: Performed By: #### 5 0103, 12475 #### [facility] [address] [place] [address], [facility] RBC (Bld) [#/Vol] 4.12 10*6/uL Low 4.20-5.70 [facility] Comment on above: Performed By: #### 5 010, 11724 #### [facility] [address] [place] [address], [facility] WBC (Bld) [#/Vol] 3.42 10*3/uL Low 4.00-10.60 [facility] Comment on above: Performed By: #### 5 010, 94270 #### [facility] [address] [place] [address], [facility] COMP METABOLIC PANELon 11-09 Albumin [Mass/Vol] 4.0 g/dL Normal 3.5-5.7 [facility] Comment on above: Performed By: #### 0 0121, 12805, 33261, 00111, 69642, 05512 #### [facility] [address] [place] [id number], [facility] ALKALINE PHOSPH 64 IU/L Normal 34-104 [facility] Comment on above: Performed By: #### 0 0121, 11632, 76275, 64285, 51439, 37745 #### [facility] [address] [place] [address], [facility] ALT [Catalytic activity/Vol] 39 U/L Normal 7-52 [facility] Comment on above: Performed By: #### 0 0121, 65665, 93789, 46103, 92776, 29292 #### [facility] [address] [place] [address], [facility] AST [Catalytic activity/Vol] 39 U/L Normal 13-39 [facility] Comment on above: Performed By: #### 0 0121, 99002, 63796, 93638, 04783, 85618 #### [facility] [address] [place] [address], [place] Bilirubin [Mass/Vol] 0.6 mg/dL Normal 0.3-1.0 [facility] Comment on above: Performed By: #### 0 0121, 47802, 78442, 77483, 70213, 23933 #### [facility] [address] [place] [address], [place] Calcium [Mass/Vol] 9.2 mg/dL Normal 8.6-10.3 [facility] Comment on above: Performed By: #### 0 0121, 29845, 27471, 34193, 23755, 35873 #### [facility] [address] [place] [address], [place] Chloride [Moles/Vol] 103 mmol/L Normal 98-107 [facility] Comment on above: Performed By: #### 0 0121, 97615, 63387, 06083, 24488, 69267 #### [facility] [address] [place] [address], [place] CO2 [Moles/Vol] 27 mmol/L Normal 21-31 [facility] Comment on above: Performed By: #### 0 0121, 35251, 70603, 24615, 35852, 48597 #### [facility] [address] [place] [address], [place] Creatinine [Mass/Vol] 0.80 mg/dL Normal 0.70-1.30 [facility] Comment on above: Performed By: #### 0 0121, 87104, 68586, 71254, 70771, 41543 #### [facility] [address] [place] [address], [place] GFR/1.73 sq M.predicted among blacks MDRD (S/P/Bld) [Vol rate/Area] mL/min/{1.73_m2} Normal >60 [facility] Comment on above: Result Comment: Calc ulation may not be valid for patients over 70 years Performed By: #### 0 0121, 08203, 49466, 18483, 78326, 20449 #### [facility] [address] [place] [address], [place] GFR/1.73 sq M.predicted among non-blacks MDRD (S/P/Bld) [Vol rate/Area] mL/min/{1.73_m2} Normal >60 [facility] Comment on above: Result Comment: Calc ulation may not be valid for patients over 70 years Performed By: #### 0 0121, 27940, 18279, 47252, 67247, 82179 #### [facility] [address] [place] [address], [place] Glucose [Mass/Vol] 78 mg/dL Normal 70-100 [facility] Comment on above: Performed By: #### 0 0121, 35246, 56917, 13448, 66982, 31077 #### [facility] [address] [place] [address], [place] Potassium [Moles/Vol] 3.9 mmol/L Normal 3.5-5.1 [facility] Comment on above: Performed By: #### 0 0121, 24388, 30819, 99207, 82007, 43108 #### [facility] [address] [place] [address], [place] Protein [Mass/Vol] 7.3 g/dL Normal 6.0-8.3 [facility] Comment on above: Performed By: #### 0 0121, 32441, 92328, 86695, 74828, 22016 #### [facility] [address] [place] [address], [facility] Sodium [Moles/Vol] 137 mmol/L Normal 136-145 [facility] Comment on above: Performed By: #### 0 0121, 26737, 90560, 39136, 97667, 19503 #### [facility] [address] [place] [address], [facility] Urea nitrogen [Mass/Vol] 11 mg/dL Normal 7-25 [facility] Comment on above: Performed By: #### 0 0121, 89180, 23881, 34492, 77048, 79263 #### [facility] [address] [place] [address], [facility] FERRITINon 11-09-2021 Ferritin [Mass/Vol] 34 ng/mL Normal 24-336 [facility] Comment on above: Performed By: #### 0 0121, 08108, 05368, 48681, 74719, 51386 #### [facility] [address] [place] [address], [facility] FOLATE SERUMon 11-09-2021 SERUM FOLATE 12.15 ng/mL Normal 6.60-1000.00 [facility] Comment on above: Result Comment: Norm al range reflects World [employer] International Standard 178 Performed By: #### 0 0121, 99367, 64454, 52116, 86447, 10362 #### [facility] [address] [place] [address], [facility] HAPTOGLOBINon 11-09-2021 HAPTOGLOBIN 43 mg/dL Normal 26-164 [facility] Comment on above: Performed By: #### 5 0103, 78778 #### [facility] [address] [place] [address], [facility] HEMATOLOGY COMPLETE EVALUATI ON siPARDIGMon 11-09-2021 RESULT Results faxed to ordering physician and sent to HIM Normal [facility] Comment on above: Result Comment: Test performed by [facility] * [address], [address] * [place], [place] * [phone] [employer] Worker: Aguilar Winston M.D. RESULTS FAXED TO [phone] Performed By: #### 5 010, 37764 #### [facility] [address] [place] [address], [facility] LDH BLOODon 11-09-2021 LDH 114 Units/L Low 140-271 [facility] Comment on above: Performed By: #### 0 0121, 71545, 36509, 99635, 48069, 48324 #### [facility] [address] [place] [address], [facility] RETICULOCYTE PANELon 022 ABSOLUTE RETICULOCYTE 0.0548 10*6/uL Normal 0.02 50-0.100 0 [facility] Comment on above: Performed By: #### 5 010, 18291 #### [facility] [address] [address] [facility] IMMATURE RETICULOCYTE FRACTION 11.0 % Normal 2.0-16.0 [facility] Comment on above: Performed By: #### 5 010, 53566 #### [facility] [address] [place] [address], [facility] RETIC COUNT 1.33 % Normal 0.50-1.80 [facility] Comment on above: Performed By: #### 5 0103, 06982 #### [facility] [address] RETICULOCYTE HEMOGLOBIN 42.0 pg High 28.0-36.0 [facility] Comment on above: Performed By: #### 5 0103, 65403 #### [facility] [address] TIBC- INCLUDES IRONon 2021 FE SATURATION 16 % Low 20-50 [facility] Comment on above: Performed By: #### 0 0121, 96987, 14106, 87950, 02333, 58486 #### [facility] [address] Iron [Mass/Vol] 67 ug/dL Normal 50-212 [facility] Comment on above: Performed By: #### 0 0121, 32837, 14085, 76223, 55790, 52293 #### [facility] [address] [facility]. [address] TIBC 420 mcg/dL Normal 250-450 [facility] Comment on above: Performed By: #### 0 0121, 66194, 80460, 46056, 06337, 31510 #### [facility] [address] UIBC 353 mcg/dL Normal 155-355 [facility] Comment on above: Performed By: #### 0 0121, 68193, 57480, 15607, 48454, 68262 #### [facility] [address] [facility]. [address] VITAMIN B12on 11-09-2021 Cobalamin (Vitamin B12) [Mass/Vol] 733 pg/mL Normal 180-914 [facility] Comment on above: Result Comment: REFE RENCE RANGES: 180-914 pg/mL Normal 145-179 pg/mL Indeterminate <145 pg/mL Deficient Performed By: #### 0 0121, 82691, 85171, 19616, 81666, 60277 #### [facility] [address] [facility] [place] [address], [facility] CBC W/DIFFon 09-15-2021 ABS IMM GRANS 0.0 10*3/uL Normal 0.0-0.2 [facility] Comment on above: Performed By: #### 5 0103 #### [facility] [address] ABS NEUTROPHILS 1.7 10*3/uL Normal 1.6-7.6 [facility] Comment on above: Performed By: #### 5 0103 #### [facility] [address] [place] [address], [facility] ANISO Moderate Normal [facility] Comment on above: Performed By: #### 5 0103 #### [facility] [address] [facility] [place] [address], [facility] Basophils (Bld) [#/Vol] 0.0 10*3/uL Normal 0.0-0.2 [facility] Comment on above: Performed By: #### 5 0103 #### [facility] [address] [place] [address], [facility] Basophils/100 WBC (Bld) 0.5 % Normal 0.0-1.0 [facility] Comment on above: Performed By: #### 5 0103 #### [facility] [address] [place] [address], [facility] ELLIPTOCYTES Slight Normal [facility] Comment on above: Performed By: #### 5 0103 #### [facility] [address] [place] [address], [facility] Eosinophils (Bld) [#/Vol] 0.0 10*3/uL Normal 0.0-0.5 [facility] Comment on above: Performed By: #### 5 0103 #### [facility] [address] [facility] [place] [address], [facility] Eosinophils/100 WBC (Bld) 0.9 % Normal 0.0-6.0 [facility] Comment on above: Performed By: #### 5 0103 #### [facility] [address] Erythrocyte distribution width (RBC) [Ratio] 18.6 % High 11.5-15.0 [facility] Comment on above: Performed By: #### 5 0103 #### [facility] [address] Hematocrit (Bld) [Volume fraction] 24.4 % Low 39.0-50.0 [facility] Comment on above: Performed By: #### 5 0103 #### [facility] [address] Hemoglobin (Bld) [Mass/Vol] 6.8 g/dL Low 13.0-17.0 [facility] Comment on above: Performed By: #### 3 #### [facility] [address] IMM PLATELET FRAC 6.0 % Normal 0.8-6.3 [facility] Comment on above: Performed By: #### 102 #### [facility] [address] IMMATURE GRANS 0.0 % Normal 0.0-1.0 [facility] Comment on above: Performed By: #### 5 3 #### [facility] [address] Lymphocytes (Bld) [#/Vol] 0.2 10*3/uL Low 1.2-4.0 [facility] Comment on above: Performed By: #### 5 3 #### [facility] [address] Lymphocytes/100 WBC (Bld) 10.9 % Low 20.0-45.0 [facility] Comment on above: Performed By: #### 5 3 #### [facility] [address] MCH (RBC) [Entitic mass] 22.1 pg Low 27.0-33.0 [facility] Comment on above: Performed By: #### 5 3 #### [facility] [address] MCHC (RBC) [Mass/Vol] 27.9 g/dL Low 32.0-35.0 [facility] Comment on above: Performed By: #### 5 0103 #### [facility] [address] [facility] [place] [address], [facility] MCV (RBC) [Entitic vol] 79.2 fL Low 82.0-98.0 [facility] Comment on above: Performed By: #### 5 0103 #### [facility] [address] [place] [address], [facility] Monocytes (Bld) [#/Vol] 0.3 10*3/uL Normal 0.1-1.0 [facility] Comment on above: Performed By: #### 5 3 #### [facility] [address] MONOS 12.2 % High 5.0-12.0 [facility] Comment on above: Performed By: #### 5 3 #### [facility] [address] [place] [address], [facility] Neutrophils/100 WBC (Bld) 75.5 % High 40.0-72.0 [facility] Comment on above: Performed By: #### 5 3 #### [facility] [address] [place] [address], [facility] Nucleated RBC/100 WBC (Bld) [Ratio] 0 % Normal 0-0 [facility] Comment on above: Performed By: #### 5 3 #### [facility] [address] [place] [address], [facility] OVALOCYTES Slight Normal [facility] Comment on above: Performed By: #### 5 3 #### [facility] [address] [facility] [place] [address], [facility] PLAT CNT 91 10*3/uL Low 150-400 [facility] Comment on above: Performed By: #### 5 3 #### [facility] [address] [place] [address], [facility] POIK Moderate Normal [facility] Comment on above: Performed By: #### 5 0103 #### [facility] [address] [place] [id number], [facility] POLY Slight Normal [facility] Comment on above: Performed By: #### 5 3 #### [facility] [address] [place] [address], [facility] RBC (Bld) [#/Vol] 3.08 10*6/uL Low 4.20-5.70 [facility] Comment on above: Performed By: #### 5 0103 #### [facility] [address] [place] [address], [facility] WBC (Bld) [#/Vol] 2.21 10*3/uL Low 4.00-10.60 [facility] Comment on above: Performed By: #### 5 3 #### [facility] [address] [facility] [place] [address], [facility] COMP METABOLIC PANELon 09-15 Albumin [Mass/Vol] 3.6 g/dL Normal 3.5-5.7 [facility] Comment on above: Performed By: #### 5 102, 92763 #### [facility] [address] [place] [address], [facility] ALKALINE PHOSPH 57 IU/L Normal 34-104 [facility] Comment on above: Performed By: #### 5 102, 81515 #### [facility] [address] [facility] [address] ALT [Catalytic activity/Vol] 24 U/L Normal 7-52 [facility] Comment on above: Performed By: #### 5 102, 88501 #### [facility] [address] [place] [address], [facility] AST [Catalytic activity/Vol] 29 U/L Normal 13-39 [facility] Comment on above: Performed By: #### 5 010, 69616 #### [facility] [address] [place] [address], [place] Bilirubin [Mass/Vol] 0.5 mg/dL Normal 0.3-1.0 [facility] Comment on above: Performed By: #### 5 010, 73255 #### [facility] [address] [place] [address], [place] Calcium [Mass/Vol] 8.8 mg/dL Normal 8.6-10.3 [facility] Comment on above: Performed By: #### 5 010, 28602 #### [facility] [address] [place] [address], [place] Chloride [Moles/Vol] 104 mmol/L Normal 98-107 [facility] Comment on above: Performed By: #### 5 010, 63836 #### [facility] [address] [place] [address], [place] CO2 [Moles/Vol] 26 mmol/L Normal 21-31 [facility] Comment on above: Performed By: #### 5 010, 87324 #### [facility] [address] [place] [address], [place] Creatinine [Mass/Vol] 0.79 mg/dL Normal 0.70-1.30 [facility] Comment on above: Performed By: #### 5 010, 91094 #### [facility] [address] [place] [address], [place] GFR/1.73 sq M.predicted among blacks MDRD (S/P/Bld) [Vol rate/Area] mL/min/{1.73_m2} Normal >60 [facility] Comment on above: Result Comment: Calc ulation may not be valid for patients over 70 years Performed By: #### 5 102, 16341 #### [facility] [address] [place] [address], [place] GFR/1.73 sq M.predicted among non-blacks MDRD (S/P/Bld) [Vol rate/Area] mL/min/{1.73_m2} Normal >60 [facility] Comment on above: Result Comment: Calc ulation may not be valid for patients over 70 years Performed By: #### 5 102, 36468 #### [facility] [address] [place] [address], [place] Glucose [Mass/Vol] 123 mg/dL High 70-100 [facility] Comment on above: Performed By: #### 5 102, 55547 #### [facility] [address] [place] [address], [place] Potassium [Moles/Vol] 3.8 mmol/L Normal 3.5-5.1 [facility] Comment on above: Performed By: #### 5 102, [id number] #### [facility] [address] [place] [address], [place] Protein [Mass/Vol] 6.8 g/dL Normal 6.0-8.3 [facility] Comment on above: Performed By: #### 5 102, [id number] #### [facility] [address] [place] [address], [place] Sodium [Moles/Vol] 137 mmol/L Normal 136-145 [facility] Comment on above: Performed By: #### 5 102, [id number] #### [facility] [address] [place] [address], [place] Urea nitrogen [Mass/Vol] 10 mg/dL Normal 7-25 [facility] Comment on above: Performed By: #### 5 010, [id number] #### [facility] [address] [place] [address], [place] Vital Signs Date Time Vital Sign Value Performing Clinician Facility 07-19-2023 13:00-0400 Diastolic blood pressure 74 mm[Hg] Robert Gomez Other [facility] [employer] Other 07-19-2023 13:00-0400 SaO2% (BldA) [Mass fraction] 99 % Robert Gomez Other [employer] [employer] Other 07-19-2023 13:00-0400 Systolic blood pressure 136 mm[Hg] Robert Gomez Other [facility] [employer] Other 05-09-2023 09:23-0400 Blood Pressure [facility] 05-09-2023 09:23-0400 Diastolic blood pressure 63 mm[Hg] Erwin Vickey [facility] 05-09-2023 09:23-0400 Heart rate 97 /min [facility] 05-09-2023 09:23-0400 SaO2% (BldA) [Mass fraction] 99 % Erwin Vickey [facility] 05-09-2023 09:23-0400 Systolic blood pressure 129 mm[Hg] Mohbinh Vickey [facility] 04-08-2023 08:29-0400 Diastolic blood pressure 56 mm[Hg] Mohbinh Vickey [facility] 04-08-2023 08:29-0400 Heart rate 98 /min [facility] 04-08-2023 08:29-0400 Mean blood pressure 82 mm[Hg] Erwin Vickey [facility] 04-08-2023 08:29-0400 Systolic blood pressure 134 mm[Hg] Mohbinh Vickey [facility] 04-08-2023 08:29-0400 Heart rate 100 /min Erwin Hurd [facility] 04-08-2023 08:29-0400 SaO2% (BldA) [Mass fraction] 100 % Erwin Hurd [facility] 04-08-2023 08:29-0400 Respiratory rate 17 /min Erwin Hurd [facility] 04-08-2023 08:29-0400 Diastolic blood pressure 66 mm[Hg] Erwin Hurd [facility] 04-08-2023 08:29-0400 Mean blood pressure 85 mm[Hg] Erwin Hurd [facility] 04-08-2023 08:29-0400 Systolic blood pressure 124 mm[Hg] Erwin Hurd [facility] 03-10-2023 12:03-0400 Hourly Rounding [facility] 03-10-2023 12:03-0400 Promise to Return [facility] 03-10-2023 11:37-0400 Heart rate 75 /min [facility] 03-10-2023 11:37-0400 SaO2% (BldA) [Mass fraction] 100 % [facility] 03-10-2023 11:37-0400 Body temperature 97.7 [degF] [facility] 03-10-2023 11:37-0400 Diastolic blood pressure 54 mm[Hg] [facility] 03-10-2023 11:37-0400 Mean blood pressure 81 mm[Hg] [facility] 03-10-2023 11:37-0400 Systolic blood pressure 136 mm[Hg] [facility] 03-10-2023 11:00-0400 Hourly Rounding [facility] 03-10-2023 11:00-0400 Promise to Return [facility] 03-10-2023 10:00-0400 Hourly Rounding [facility] 03-10-2023 10:00-0400 Promise to Return [facility] 03-10-2023 08:48-0400 gluc 116 mg/dL [facility] 03-10-2023 08:13-0400 Heart rate 118 /min [facility] 03-10-2023 08:13-0400 SaO2% (BldA) [Mass fraction] 96 % [facility] 03-10-2023 08:13-0400 Body temperature 98.06 [degF] [facility] 03-10-2023 08:12-0400 Diastolic blood pressure 69 mm[Hg] [facility] 03-10-2023 08:12-0400 Mean blood pressure 90 mm[Hg] [facility] 03-10-2023 08:12-0400 Systolic blood pressure 131 mm[Hg] [facility] 03-10-2023 00:40-0400 Blood Pressure Location [facility] 03-10-2023 00:40-0400 Body temperature 97.7 [degF] [facility] 03-10-2023 00:40-0400 Diastolic blood pressure 65 mm[Hg] [facility] 03-10-2023 00:40-0400 Heart rate 120 /min [facility] 03-10-2023 00:40-0400 Mean blood pressure 80 mm[Hg] [facility] 03-10-2023 00:40-0400 Respiratory rate 18 /min [facility] 03-10-2023 00:40-0400 SaO2% (BldA) [Mass fraction] 97 % [facility] 03-10-2023 00:40-0400 Systolic blood pressure 109 mm[Hg] [facility] 03-09-2023 17:18-0400 gluc 98 mg/dL [facility] 03-09-2023 11:50-0400 gluc 219 mg/dL [facility] 03-09-2023 09:22-0400 Heart rate 116 /min [facility] 03-09-2023 03:42-0400 Mean blood pressure 94 mm[Hg] [facility] 03-08-2023 16:08-0400 Mean blood pressure 100 mm[Hg] [facility] 03-08-2023 16:00-0400 Respiratory rate 18 /min [facility] 03-08-2023 11:00-0400 Respiratory rate 16 /min [facility] 03-08-2023 05:51-0400 Body temperature 97.16 [degF] [facility] 03-08-2023 05:51-0400 Mean blood pressure 105 mm[Hg] [facility] 03-07-2023 21:15-0400 Body temperature 98.06 [degF] [facility] 03-06-2023 09:34-0400 Heart rate 92 /min [facility] 03-05-2023 08:00-0400 Heart rate 84 /min [facility] 03-03-2023 12:51-0400 Body temperature 98.42 [degF] [facility] 03-03-2023 12:51-0400 Respiratory rate 17 /min [facility] 03-03-2023 12:40-0400 Respiratory rate 18 /min [facility] 03-03-2023 12:35-0400 Respiratory rate 18 /min [facility] 03-03-2023 12:26-0400 Body temperature 98.06 [degF] [facility] 03-01-2023 18:04-0400 Heart rate 120 /min [facility] 03-01-2023 17:45-0400 Heart rate 113 /min [facility] 03-01-2023 16:45-0400 Heart rate 108 /min [facility] 02-23-2023 11:14-0400 gluc [facility] 02-17-2023 10:28-0400 Blood Pressure Location Erwin Hurd [facility] 02-17-2023 10:28-0400 Diastolic blood pressure 63 mm[Hg] Erwin Hurd [facility] 02-17-2023 10:28-0400 Heart rate 108 /min Erwin Hurd [facility] 02-17-2023 10:28-0400 SaO2% (BldA) [Mass fraction] 100 % Erwin Hurd [facility] 02-17-2023 10:28-0400 Systolic blood pressure 117 mm[Hg] Erwin Hurd [facility] 02-15-2023 16:53-0400 Diastolic blood pressure 85 mm[Hg] Brennon Cruz [facility] 02-15-2023 16:53-0400 Heart rate 108 /min Brennon Cruz [facility] 02-15-2023 16:53-0400 Mean blood pressure 109 mm[Hg] Brennon Cruz [facility] 02-15-2023 16:53-0400 Respiratory rate 18 /min Brennon Cruz [facility] 02-15-2023 16:53-0400 SaO2% (BldA) [Mass fraction] 96 % Brennon Hartmane [facility] 02-15-2023 16:53-0400 Systolic blood pressure 156 mm[Hg] Brennon Hartmane [facility] 02-15-2023 16:00-0400 Diastolic blood pressure 66 mm[Hg] Brennon Nancy [facility] 02-15-2023 16:00-0400 Heart rate 109 /min Brennon Hartmane [facility] 02-15-2023 16:00-0400 Respiratory rate 16 /min Brennon Hartmane [facility] 02-15-2023 16:00-0400 SaO2% (BldA) [Mass fraction] 100 % Brennon Hartmane [facility] 02-15-2023 16:00-0400 Systolic blood pressure 154 mm[Hg] Brennon Hartmane [facility] 02-15-2023 15:00-0400 Diastolic blood pressure 71 mm[Hg] Brennon Hartmane [facility] 02-15-2023 15:00-0400 Heart rate 91 /min Brennon Hartmane [facility] 02-15-2023 15:00-0400 SaO2% (BldA) [Mass fraction] 99 % Brennon Nancy [facility] 02-15-2023 15:00-0400 Systolic blood pressure 155 mm[Hg] Brennon Nancy [facility] 02-15-2023 11:02-0400 Body temperature 98.06 [degF] Brennon Nancy [facility] 02-15-2023 11:02-0400 Heart rate 118 /min Brennon Cruz [facility] 02-10-2023 13:15-0400 Blood Pressure Location Erwin Ivckey [facility] 02-10-2023 13:15-0400 Diastolic blood pressure 75 mm[Hg] Mohbinh Vickey [facility] 02-10-2023 13:15-0400 Heart rate 89 /min Mohamed Vickey [facility] 02-10-2023 13:15-0400 SaO2% (BldA) [Mass fraction] 100 % Mohbinh Vickey [facility] 02-10-2023 13:15-0400 Systolic blood pressure 119 mm[Hg] Mohbinh Vickey [facility] 01-06-2023 11:40-0400 Blood Pressure Location Mohbinh Vickey [facility] 01-06-2023 11:40-0400 Diastolic blood pressure 60 mm[Hg] Mohbinh Vickey [facility] 01-06-2023 11:40-0400 Heart rate 98 /min Mohbinh Vickey [facility] 01-06-2023 11:40-0400 SaO2% (BldA) [Mass fraction] 99 % Mohamed Vickey [facility] 01-06-2023 11:40-0400 Systolic blood pressure 130 mm[Hg] Mohamed Vickey [facility] 12-23-2022 14:35-0400 Blood Pressure Location Mohamed Vickey [facility] 12-23-2022 14:35-0400 Diastolic blood pressure 70 mm[Hg] Mohamed Vickey [facility] 12-23-2022 14:35-0400 Heart rate 96 /min Mohbinh Vickey [facility] 12-23-2022 14:35-0400 SaO2% (BldA) [Mass fraction] 100 % Mohamed Vickey [facility] 12-23-2022 14:35-0400 Systolic blood pressure 120 mm[Hg] Mohamed Vickey [facility] 12-09-2022 11:43-0500 Blood Pressure Location Mohamed Vickey [facility] 12-09-2022 11:43-0500 Diastolic blood pressure 69 mm[Hg] Mohamed Vickey [facility] 12-09-2022 11:43-0500 Heart rate 88 /min Mohamed Vickey [facility] 12-09-2022 11:43-0500 SaO2% (BldA) [Mass fraction] 96 % Mohamed Vickey [facility] 12-09-2022 11:43-0500 Systolic blood pressure 105 mm[Hg] Mohamed Vickey [facility] 11-22-2022 11:42-0500 Blood Pressure Location Mohamed Vickey [facility] 11-22-2022 11:42-0500 Diastolic blood pressure 80 mm[Hg] Mohamed Vickey [facility] 11-22-2022 11:42-0500 Heart rate 75 /min Mohamed Vickey [facility] 11-22-2022 11:42-0500 SaO2% (BldA) [Mass fraction] 98 % Mohamed Vickey [facility] 11-22-2022 11:42-0500 Systolic blood pressure 130 mm[Hg] Mohamed Vickey [facility] Encounters Encounter Date Encounter Type Care Provider Facility Start: 12-23-2023 Encounter for other preprocedural examination JAVIER GARCIA [facility] Start: 12-21-2023 Encounter for other preprocedural examination JAVIER GARCIA [facility] Start: 12-21-2023 End: 12-24-2023 Evaluation and management of inpatient [facility] Start: 12-16-2023 ambulatory [facility] Start: 12-07-2023 Orders Only Angeles Mendes [employer]PENTER [employer] 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 Phone: [facility] Comment on above: Anemia, unspecified type (Primary Dx) Start: 12-01-2023 End: 12-01-2023 ambulatory ANGELESPIETER MENDES [facility] Start: 11-30-2023 ambulatory [facility] Start: 11-19-2023 Evaluation and management of inpatient MONA MANE [facility] Start: 11-18-2023 Evaluation and management of inpatient DESTINY PITTMAN [facility] Start: 11-18-2023 Evaluation and management of inpatient LEXUS JONNY [facility] Start: 11-17-2023 Emergency department patient visit REBECCA ZUNIGA [facility] Start: 11-17-2023 End: 11-22-2023 Evaluation and management of inpatient EVELYN EDUARDO [facility] Start: 11-03-2023 Evaluation and management of inpatient [facility] Start: 11-02-2023 Evaluation and management of inpatient [facility] Start: 11-02-2023 End: 11-08-2023 Evaluation and management of inpatient [facility] Start: 11-02-2023 ambulatory [facility] Start: 10-31-2023 End: 11-24-2023 Pre-admission assessment Master Garcia [facility] Start: 10-26-2023 ambulatory TANJA NUGENT [facility] Start: 10-26-2023 End: 10-27-2023 ambulatory [facility] Start: 10-19-2023 End: 10-20-2023 ambulatory [facility] Start: 10-17-2023 End: 10-17-2023 ambulatory SALINA SLADE [facility] Start: 10-17-2023 End: 10-17-2023 ambulatory [facility] Start: 10-12-2023 End: 10-13-2023 Emergency department patient visit GIAN HORTA JR [facility] Start: 10-12-2023 End: 10-12-2023 ambulatory [facility] Start: 10-05-2023 End: 10-06-2023 ambulatory [facility] Start: 09-29-2023 End: 10-10-2023 ambulatory NATY MANNING [facility] Start: 09-28-2023 End: 09-29-2023 ambulatory [facility] Start: 09-21-2023 Evaluation and management of inpatient JUHI ALEJANDRO [facility] Start: 09-19-2023 [facility]: 09-18-[facility]23 [facility] Start: 09-18-2023 End: 09-26-2023 Evaluation and management of inpatient [facility] Start: 09-18-2023 Emergency department patient visit YASIR NICHOLAS [facility] Start: 08-31-2023 End: 09-01-[address] [facility] Start: 07-21-2023 Telephone encounter [facility] Start: 07-21-2023 End: 07-21-2023 ambulatory Brennon Cruz Facility:[facility] Start: 07-19-2023 End: 07-19-2023 ambulatory Robert Gomez Other [facility] [employer] Other Start: 07-19-2023 Office outpatient vi sit 25 minutes Robert Gomez [facility] Start: 06-20-2023 ambulatory KERN VALLEYAN [facility] Start: 05-16-2023 [facility] Start: 05-09-2023 End: 05-10-2023 ambulatory Erwin Hurd Facility:[facility] Start: 05-09-2023 End: 05-09-2023 Patient encounter procedure Erwin Hurd [facility] Start: 04-11-2023 End: 04-11-2023 ambulatory Erwin Hurd Facility:[facility] Start: 04-08-2023 End: 04-09-2023 ambulatory Erwin Hurd Facility:[facility] Start: 04-08-2023 End: 04-08-2023 Patient encounter procedure Erwin Hurd [facility] Start: 04-04-2023 End: 04-05-2023 ambulatory Erwin Hurd Facility:[facility] Start: 04-04-2023 End: 04-04-2023 Patient encounter procedure Erwin Hurd [facility] Start: 03-30-2023 End: 04-14-2023 Pre-admission assessment Erwin Hurd [facility] Start: 03-17-2023 End: 03-18-2023 ambulatory Erwin Hurd Facility:[facility] Start: 03-08-2023 End: 03-09-2023 ambulatory Bekah Jakub XIN Facility:[facility] Start: 02-23-2023 End: 03-10-2023 Evaluation and management of inpatient Ramos HERRING Facility:[facility] Start: 02-23-2023 End: 03-10-2023 Evaluation and management of inpatient Ramos HERRING [facility] Start: 02-18-2023 End: 02-18-2023 ambulatory Erwin Hurd Facility:[facility] Start: 02-18-2023 Emergency department patient visit Brennon Cruz Facility:[facility] Start: 02-17-2023 End: 02-18-2023 ambulatory Erwin Hurd Facility:[facility] Start: 02-17-2023 End: 02-17-2023 Patient encounter procedure Erwin Hurd [facility] Start: 02-15-2023 End: 02-15-2023 Emergency department patient visit Brennon Cruz Facility:[facility] Start: 02-15-2023 End: 02-15-2023 Emergency department patient visit Brennon Cruz [facility] Start: 02-15-2023 End: 02-16-2023 Pre-admission assessment Erwin Hurd [facility] Start: 02-14-2023 End: 02-16-2023 Pre-admission assessment Erwin Hurd [facility] Start: 02-10-2023 End: 02-11-2023 ambulatory Erwin Hurd Facility:[facility] Start: 02-10-2023 End: 02-10-2023 Patient encounter procedure Erwin Hurd [facility] Start: 02-09-2023 End: 02-09-[address] GIAN HORTA Facility: Start: 01-30-2023 Evaluation and management of inpatient LINUS HER [facility] Start: 01-29-2023 End: 01-29-2023 ambulatory UNKNOWN PROVIDER Facility:[facility] Start: 01-29-2023 End: 02-03-2023 Evaluation and management of inpatient ERWIN HURD [facility] Start: 01-29-2023 End: 01-29-[address] GIAN HORTA Facility: Start: 01-06-2023 End: 01-07-2023 ambulatory Erwin Hurd Facility:[facility] Start: 01-06-2023 End: 01-06-2023 Patient encounter procedure Erwin Hurd [facility] Start: 12-23-2022 End: 12-24-2022 ambulatory Erwin Hurd Facility:[facility] Start: 12-23-2022 End: 12-23-2022 Patient encounter procedure Erwin Hurd [facility] Start: 12-09-2022 End: 12-10-2022 ambulatory Erwin Hurd Facility:[facility] Start: 12-09-2022 End: 12-09-2022 Patient encounter procedure Erwin Hurd [facility] Start: 11-29-2022 End: 11-30-2022 Pre-admission assessment Erwin Hurd [facility] Start: 11-22-2022 End: 11-23-2022 ambulatory Erwin Hurd Facility:[facility] Start: 11-22-2022 End: 11-22-2022 Patient encounter procedure Erwin Hurd [facility] Start: 11-13-2022 End: 11-15-2022 ambulatory UNKNOWN PROVIDER Facility:[facility] Start: 11-13-2022 End: 11-13-[address] GIAN HORTA Facility:[facility] Start: 11-08-2022 End: 01-07-2023 Pre-admission assessment GIAN HORTA [facility] Start: 11-03-2022 Encounter for other preprocedural examination ERWIN HURD [facility] Start: 11-01-2022 End: 11-02-2022 ambulatory ERWIN HURD Facility:[facility] Start: 11-01-2022 End: 11-02-2022 Encounter for other preprocedural examination ERWIN HURD Facility:[facility] Start: 10-20-2022 End: 10-21-[address] MARCO A OSWALD Facility:[facility] Start: 05-12-2021 End: 05-13-2021 ambulatory GIAN HORTA Facility:[facility] Procedures Date Procedure Procedure Detail Performing Clinician Start: 10-17-2023 Follow-up visit JAVIER GARCIA Start: 04-11-2023 Surgical debridement of wound Erwin Hurd Start: 03-03-2023 Amputation above-knee A haley ALAHMAD Start: 11-29-2022 H/O: major vascular surgery Erwin Hurd Appendectomy Alaa ALAHMAD Cholecystectomy Alaa ALAHMAD Coronary artery bypa ss grafts x 2 Alaa ALAHMAD Femorofemoral crosso bharath bypass graft Erwin Hurd Vascular surgery (qu alifier value) Alaa ALAHMAD Vascular surgery (qu alifier value) Erwin Hurd Plan of Treatment Date Care Activity Detail Author Start: 10-12-2024 Adult [facility] Screening [facility] Start: 10-12-2024 Tobacco Screening [facility] Start: 06-10-2023 COVID-19 Vaccine ( season) COVID-19 Vaccine () [facility] Start: 06-10-2023 Influenza vaccination Influenza Vaccine [facility] Start: 12-12-2011 Fall Risk Screening Fall Risk [facility]ening [facility] Start: 1996 Administration of varicella zoster vaccine [facility]hing[facility] Start: 1965 DTaP,Tdap and Td Vaccines (1 - Tdap) DTaP,Tdap and Td Vaccines (1 - Tdap) [facility] Start: 1958 Depression Screening [facility] Start: 1946 Medicare Annual Wellness Visit Medicare Annual Wellness Visit [facility] viseto Payers Date Payer Category Payer Private Health Insurance 2004 Medicare MEDICARE MEDICAR E PART A & B [id number] 2004-Present [phone] [address] [place] [address] [id number] 1959 Medicare [id number] 1959 Private Health Insurance [id number] 1946 Unknown [id number] 2.16.840.1.483519.3.579.2.6 47 1946 Unknown [id number] 2.16.840.1.883299.3.579.2.7 32 1946 Unknown [id number] 2.16.840.1.861188.3.579.2.7 32 1946 Unknown [id number] 2.16.840.1.130164.3.579.2.5 93 1946 Unknown [id number] 2.16.840.1.117026.3.579.2.5 93 1946 Unknown [id number] 2.16.840.1.723432.3.579.2.5 93 1946 Unknown [id number] 2.16.840.1.279965.3.579.2.5 93 1946 Unknown [id number] 2.16.840.1.977551.3.579.2.5 93 1946 Unknown [id number] 2.16.840.1.593213.3.579.2.7 1946 Unknown [id number] 2.16.840.1.506114.3.579.2.7 1946 Unknown [id number] 2.16.840.1.770969.3.579.2.7 1946 Unknown [id number] 2.16.840.1.327190.3.579.2.7 1946 Unknown [id number] 2.16.840.1.272777.3.579.2.7 1946 Unknown [id number] 2.16.840.1.263080.3.579.2.7 1946 Unknown [id number] 2.16.840.1.439017.3.579.2.7 1946 Unknown [id number] 2.16.840.1.994780.3.579.2.7 1946 Unknown [id number] 2.16.840.1.210246.3.579.2.7 1946 Unknown [id number] 2.16.840.1.497107.3.579.2.7 1946 Unknown [id number] 2.16.840.1.872843.3.579.2.7 1946 Unknown [id number] 2.16.840.1.992445.3.579.2.7 1946 Unknown [id number] 2.16.840.1.580012.3.579.2.7 1946 Unknown [id number] 2.16.840.1.946057.3.579.2.7 1946 Unknown [id number] 2.16.840.1.942883.3.579.2.7 1946 Unknown [id number] 2.16.840.1.923475.3.579.2.7 1946 Unknown [id number] 2.16.840.1.909074.3.579.2.7 27 1946 Unknown [id number] 2.16.840.1.453231.3.579.2.7 27 1946 Unknown [id number] 2.16.840.1.569858.3.579.2.3 56 1946 Unknown [id number] 2.16.840.1.802047.3.579.2.1 286 1946 Unknown [id number] 2.16.840.1.410763.3.579.2.1 286 1946 Unknown [id number] 2.16.840.1.283924.3.579.2.1 286 1946 Unknown [id number] 2.16.840.1.467541.3.579.2.1 286 1946 Unknown [id number] 2.16.840.1.349181.3.579.2.1 286 1946 Unknown [id number] 2.16.840.1.736178.3.579.2.1 286 1946 Unknown [id number] 2.16.840.1.666710.3.579.2.1 286 Unknown [id number] Social History Date Type Detail Facility Start: 11-22-2022 End: 07-28-2023 Tobacco smoking status Ex-smoker (finding) [facility] Tobacco smoking status Never [facility] Start: 11-20-2020 End: 10-12-2023 Sex Assigned At Male [facility] History of tobacco use Current smoker [facility] History of tobacco use Cigarette Smoker [facility] Start: 07-28-2023 Tobacco use and exposure Smokeless tobacco non-user [facility] Start: 10-12-2023 Alcohol intake Ex-drinker (finding) [facility] Start: 11-20-2020 End: 10-12-2023 History of Social function [facility] Start: 1945 Sex Assigned At Not on file [facility] Functional Status Date Assessment Result Facility 05-09-2023 Functional Status No [facility] 04-08-2023 Functional Status No [facility] 02-23-2023 Functional Status N/A [facility] 02-23-2023 Functional Status [facility] 02-17-2023 Functional Status N/A [facility] 02-15-2023 Functional Status N/A [facility] [facility] 02-10-2023 Functional Status No [facility] 01-06-2023 Functional Status No [facility] 12-23-2022 Functional Status No [facility] 12-09-2022 Functional Status No [facility] 11-22-2022 Functional Status No [facility] Clinical Notes 12-09-2022 to 12-24-2023 Note Date & Type Note Facility 12-24-2023 Note [facility] 12-24-2023 Note [facility] 12-23-2023 Note [facility] 12-23-2023 Note [facility] 12-23-2023 Note [facility] 12-23-2023 Note [facility] accepting. No pre-cert is needed but awaiting medical readiness. Pt/family aware. AVS updated. UPDATE 3:20PM- Pt medically ready but SNF not able to accept until tomorrow. has been updated. [facility] 12-23-2023 Note [facility] 12-22-2023 Note [facility] 12-22-2023 Note [facility] 12-22-2023 Note [facility] 12-22-2023 Note [facility] 12-22-2023 Note [facility] 12-21-2023 Note [facility] 12-21-2023 Note [facility] 12-16-2023 Note Notes in intellicure Patient for above kne amputation due to the gangrene of the stump [facility] 12-07-2023 Note [facility] 12-05-2023 Note [facility] 12-01-2023 Note [facility] 11-30-2023 Note [facility] 11-21-2023 Note Patient will be retu rning to [facility] this evening by [facility]. First available is 8:45pm. Let the facility and patient's know the discharge time. Sent the AVS to [facility]. [facility] 11-21-2023 Note [facility] 11-20-2023 Note hospitalist notified by nursing staff that patient spiked a temperature of 102 ???F during his posttransfusion vitals. Spoke with blood bank and they stated to order transfusion reaction protocol and they would contact nursing for further instructions. [facility] 11-20-2023 Note [facility] 11-20-2023 Note [facility] 11-20-2023 Note [facility] 11-20-2023 Note [facility] 11-20-2023 Note [facility] 11-19-2023 Note [facility] 11-19-2023 Note [facility] 11-18-2023 Note [facility] 11-18-2023 Note [facility] 11-18-2023 Note [facility] 11-18-2023 Note [facility] 11-08-2023 Note [facility] 11-08-2023 Note [facility] 11-08-2023 Note [facility] 11-08-2023 Note [facility] 11-08-2023 Note [facility] 11-07-2023 Note [facility] 11-07-2023 Note [facility] 11-07-2023 Note [facility] 11-07-2023 Note This report has been cancelled. [facility] 11-07-2023 Note [facility] 11-07-2023 Note Sent updates to 3 fo llowing SNF's but still needing OT/PT evals before they can accept. Requested orders be placed. UPDATE 2:20PM- Pt/'s 1st SNF choice [facility] stated they will be able to accept. Updated Ijeoma by phone and updated AVS. [facility] 11-06-2023 Note central office worker spoke with patient's Ijeoma. Ijeoma reports that SNF choices at 1.) [place], 2.) [place] and 3.) [facility]. SNF referrals sent. OTM will continue to follow. [facility] 11-06-2023 Note [facility] 11-06-2023 Note [facility] 11-05-2023 Note [facility] 11-05-2023 Note [facility] 11-04-2023 Note [facility] 11-04-2023 Note [facility] 11-04-2023 Note [facility] 11-04-2023 Note [facility] 11-04-2023 Note [facility] 11-04-2023 Note [facility] 11-03-2023 Note Spiritual Care Note Patient name: Max Sanchez Age: 77 y.o. Room: [address] [place] [address] Patients was not present. Unable to complete Advance Directives documents. [facility] 11-03-2023 Note [facility] 11-03-2023 Note [facility] 11-02-2023 Note [facility] 11-02-2023 Note [facility] 11-02-2023 Note [facility] 10-26-2023 Note [facility] 10-17-2023 Note [facility] 10-17-2023 Note [facility] 10-05-2023 Note [facility] 09-26-2023 Note [facility] 09-25-2023 Note [facility] 09-25-2023 Note [facility] 09-25-2023 Note [facility] 09-25-2023 Note Awaiting IV antibiot ic approval and delivery. Sent updates to Yissel Faustin. AVS updated. OTM will continue to follow. [facility] 09-24-2023 Note [facility] 09-24-2023 Note [facility] 09-24-2023 Note [facility] 09-24-2023 Note [facility] 09-23-2023 Note [facility] 09-23-2023 Note [facility] 09-23-2023 Note [facility] 09-23-2023 Note [facility] 09-22-2023 Note [facility] 09-22-2023 Note [facility] 09-22-2023 Note [facility] 09-22-2023 Note [facility] 09-22-2023 Note [facility] 09-22-2023 Note [facility] 09-22-2023 Note This report has been cancelled. [facility] 09-21-2023 Note [facility] 09-21-2023 Note [facility] 09-20-2023 Note [facility] 09-20-2023 Note [facility] 09-20-2023 Note [facility] 09-20-2023 Note [facility] 09-19-2023 Note [facility] 09-19-2023 Note [facility] 09-18-2023 Note [facility] 08-31-2023 Note Continue IV antibiot ics and serial examination. [facility] 08-31-2023 Note [facility] 08-12-2023 Note Scheduled EGD/Cln/An emia/GI Bleed/EV 08/15/23 @1230, PTH, Antonio Hernandez, #[id number]. Urgent referral from Dr. Horta scanned in Media 08/12/23. Patient holding blood thinner since 07/12/23. 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 Therapy with home health for prosthetic training when obtained-patie nt reports has this in place If tolerates temp prosthesis can f/u 3-6 months for final definitive prosthesis evaluation/pre scription. Monitor for skin breakdown. [employer] Other [id number] NoteAKA stump and physical therapy. Follow- up in a year.[facility]09-11-2023 [facility] NoteContinue wound VAC and follow-up in a month. [facility]08-07-2023 [facility]06-30-2023 [id number]:127[facility]06-01-[facility] Evaluation + Plan noteExtracted from: Title:Discharge Note Author:Alison FINNEGAN Date:03/10/23 Hemodynamically stable condi tion Discharge To, Anticipated II - Detention Unit Discharged to - Home with family [...] Oral, Supper nystatin 100,000 units/mL Oral Susp, [id number] unit(s)= 15 mL, Oral, QIDACHS oxymetazoline Nasal 0.05% Baldwin, 2 spray(s), Nasal, BID, PRN senna 8.6 mg Tab, 17.2 mg= 2 tab(s), Oral, BID, PRN SEROquel 25 mg Tab, 25 mg= 1 tab(s), Oral, Bedtime sodium chloride nasal 0.65% spray, 2 spray(s), Nasal, q2hr, PRN Verquvo 10 mg oral tablet, 10 mg= 1 tab(s), Oral, Daily With When Contact Information GIAN HORTA In 3 days 02/28/2023 EDT [address] [facility] [address] Business (1) Additional Instructions: The office is closed on Fridays. Please contact your PCP on Tuesday, February 28 for an appointment. Thank you! Chong Coe Within 7 to 10 days [address] [place] [address]- Business (1) Additional Instructions: Erwin Hurd Within 5 to 7 days [address] [place] [address]- Business (1) Additional Instructions: Dami WISE, TAL Guidry Within 2 to 4 weeks [address] [place] [address]- Additional Instructions: Diabetes Mellitus and Nutrition, Adult Diabetes Mellitus and Foot Care Wound Infection, [id number] Extracted from: Title:APSO Note Author:Megan DONIS Date:03/09/23 [...] of right lower extremity (I70.221: Atherosclerosis of mil[place] arteries of extremities with rest pain, right leg) - Atherosclerosis of [place] arteries of extremities with rest pain, right [...] ID. Dressing changes as per orders. 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 -Severe malnutrition, dietitian consult [...] - afrin Orders: oxymetazoline nasal, 2 spray(s), Norman, Nasal, TID for 72 hour(s), Stop date [...] of right lower extremity (I70.221: Atherosclerosis of [place] arteries of extremities with rest pain, right leg) - Atherosclerosis of [place] arteries of extremities with rest pain, right [...] Extracted from: Title:APSO Note-neurology Author:Alise GUARDADO, Fabian ole Date:03/08/23 Reason for consult: Persistent encephalopathy ASSESSMENT: [...] of right lower extremity (I70.221: Atherosclerosis of [place] arteries of extremities with rest pain, right [...] of right lower extremity (I70.221: Atherosclerosis of [place] arteries of extremities with rest pain, right leg) - Atherosclerosis of [place] arteries of extremities with rest pain, right [...] of right lower extremity (I70.221: Atherosclerosis of [place] arteries of extremities with rest pain, right [...] Extracted from: Title:APSO Note Author:Jovanny WISE, Savage Jonathan Date: 1. 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 Call out yesterday. - On ASA, plavix, pletal Ordered: [facility] Care/Day High 50 Minutes [id number] 2. Critical limb ischemia of right lower extremity (I70.221: Atherosclerosis of [place] arteries of extremities with rest pain, right leg) - left groin infection, Dr. Hurd recommended continue wound vac to be changed every 3 days with black foam, 125 mmHg - On invanz IV daily, follow-up ID of 3 weeks of antibiotics - picc line in place Ordered: [facility] Care/Day High 50 Minutes [id number] 3. Peripheral vascular disease (I73.9: Peripheral vascular disease, unspecified) - As above Ordered: [facility] Care/Day High 50 Minutes 00376 4. Acute metabolic encephalopathy (G93.41: Metabolic encephalopathy) [...] process - Neurology consulted again today. Ordered: [facility] Care/Day High 50 Minutes 36193 5. Anemia of chronic disease (D63.8: Anemia in other chronic diseases classified elsewhere) - Transfused 2 unit prbc 3 days ago - Hemoglobin stable - On iron infusion Ordered: [facility] Care/Day High 50 Minutes 53597 6. Diabetes (E11.9: Type 2 diabetes mellitus without complications) - Metformin and SSI Ordered: [facility] Care/Day High 50 Minutes 40856 7. Chronic GERD (K21.9: Gastro-esophageal reflux disease without esophagitis) - Pepcid Ordered: [facility] Care/Day High 50 Minutes 97481 8. No contraindication to deep vein thrombosis (DVT) prophylaxis (Z78.9: Other specified health status) SCDs and Lovenox Ordered: [facility] Care/Day High 50 Minutes 78197 D/C tomorrow if cleared by neurology. Labs [...] of right lower extremity (I70.221: Atherosclerosis of [place] arteries of extremities with rest pain, right [...] procedure, unspecified, initial encounter) - Atherosclerosis of [place] arteries of extremities with rest pain, right leg - Status post right above-knee amputation 03/03 - Will call Vickey for further recommendations - On ASA, plavix, pletal 2. Critical limb ischemia of right lower extremity (I70.221: Atherosclerosis of [place] arteries of extremities with rest pain, right [...] of right lower extremity (I70.221: Atherosclerosis of [place] arteries of extremities with rest pain, right [...] of right lower extremity (I70.221: Atherosclerosis of [place] arteries of extremities with rest pain, right [...] to ensure accuracy , however, inadvertently computerized continuous dryout operator helper mistakes may be present . Extracted from: Title:Progress Note * Author:Chong Coe M.D Date:03/04/23 Impression and Plan Diagnosis: Diagnosis: left groin wound fem pop infection partially treated already with 3 weeks of IV dapto/cefepime. . Orders Patient has been treated for a left groin wound postop vascular infection. Antibiotics were initially started after the infection was diagnosed at [facility]. Culture reportedly was negative per the . 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 Extracted from: Title:LIZZETTE Post-operative Note---General Author: MD Horner Ahmad F Date:03/03/23 Plan Transfer/Discharge: Transfer/Discharge Discharge when meets criteria ( To home ). Extracted from: Title:LIZZETTE Pre-anesthesia - Adult 19 Author:Marianne torres MD, Ahmad F Date:03/03/23 Plan [place] [employer] Anesthesiologists (ASA) physical status classification: [...] Extracted from: Title:APSO Note-neurology Author:Fabian Carrero RN ole Date:03/02/23 The patient is a 77-year-old male [...] of right lower extremity (I70.221: Atherosclerosis of mil[place] lacs arteries of extremities with rest pain, right [...] the as cultures apparently were done in [place]. Extracted from: Title:APSO Note Author:Shayy BALLESTEROS MD [...] Ordered: [facility] Care/Day High 50 Minutes 40634 2. Critical limb ischemia of right lower extremity (I70.221: Atherosclerosis of mil[place] arteries of extremities with rest pain, right [...] of right lower extremity (I70.221: Atherosclerosis of [place] arteries of extremities with rest pain, right [...] of right lower extremity (I70.221: Atherosclerosis of [place] arteries of extremities with rest pain, right [...] Brain w/o Contrast Wound Vac Addendum by Shayy BALLESTEROS MD March 06, 2023 09:19:07 EDT severe malnutrition, present on admission Extracted from: Title:Discharge Note Author:Ramos HERRING MD Ld e:02/25/23 fair Discharge To, Anticipated II [...] Oral, Supper nystatin 100,000 units/mL Oral Susp, [id number] unit(s)= 15 mL, Oral, QIDACHS Verquvo 10 mg oral tablet, 10 mg= 1 tab(s), Oral, Daily With When Contact Information GIAN HORTA In 3 days 02/28/2023 EDT [address] [place] [address] Business (1) Additional Instructions: The office is closed on Fridays. Please contact your PCP on Tuesday, February 28 for an appointment. Thank you! Diabetes Mellitus and Nutrition, Adult Diabetes Mellitus and Foot Care Wound Infection, Bofb-sj-Jlic Discharge time >30 min Extracted from: Title:Infection Admission H&P * Author:Chong Coe M.D Date:02/25/23 Impression and Plan Diagnosis left groin wound fem pop infection partially treated already with 3 weeks of IV dapto/cefepime . Orders Patient's initial debridement on his left groin wound was done at [facility]. These records are not available for me to review. Patient's states that DrOtilia Hurd was the one who chose daptomycin [...] . Extracted from: Title:Admission H & P Author:Ramos HERRING MD te:02/23/23 1. Acute encephalopathy (G93 .40: Encephalopathy, [...] Complete Bilat 04/08/23 * CV Cardiovascular 02/15/23 [facility]06[facility]01[facility] Comment: Electronically Signed By: Serena FINNEGAN\.br\Date and Time Signed: 03/10/23 10:50 EDT\.br\Electronically Co-Signed By: Vazquez WISE, [place]\.br\Date and Time Co-Signed: 03/10/23 11:19 EDT [facility]-2023 [facility]Result Comment: Electronically Signed By: Ramos HERRING MD\.br\Date and Time Signed: 02/25/23 11:[id number] Hospital Discharge instructions Patient Education 02/25/2023 11:06:33 [...] Carrots. Green beans. Tomatoes. Peppers. Onions. Cucumbers. Elmore sprouts. Grains Whole grains, such as whole-wheat [...] meet with a certified diabetes care and preschool special education teacher? Do I need to meet with a dietitian? What number can I call if I have questions? When are the best times to check my blood glucose? Where to find more information: [place] [employer] Association: diabetes.org Academy of Nutrition and Dietetics: eatright.org National [place] of Diabetes and Digestive and Kidney Diseases: [...] provider. Document Revised: 04/29/2021 Document Reviewed: 04/29/2021 [place] Patient Education 2022 [employer]. 02/25/2023 11:06:31 Diabetes Mellitus and Foot Care Diabetes Mellitus and Foot Care Foot care is an important part of your health, especially when you have diabetes. Diabetes may cause you to have problems because of poor blood flow (circulation) to your feet and legs, which can cause your skin to: Become thinner and pulp drier firer. Break more easily. Heal more slowly. Peel [...] provider immediately. Where to find more information [place] [employer] Association: www.diabetes.org Association of Diabetes Care [...] provider. Document Revised: 04/16/2021 Document Reviewed: 04/16/2021 [place] Patient Education 2022 [employer]. 02/25/2023 11:06:09 Wound Infection, Cjaq-gi-Bftq Wound Infection A wound infection happens when [...] instructions at home: Medicines Take or apply crzu-zjo-agvsdaa and prescription medicines only as told by [...] cannot use soap and water, use hand dialysis clinical manager. ?Change your bandage as told by your [...] provider. Document Revised: 07/22/2022 Document Reviewed: 07/22/2022 [place] Patient Education 2022 [employer]. Follow Up Care 02/23/2023 10:43:07 With:Chong Coe Address: [facility] [address] [place] [address]- Business (1) When:7 to 10 days With:Erwin Hurd Address: [address] [place] [address]- Business (1) When:5 to 7 days With:Andrea Lomax MD, NEU Address: [address] [place] [address]- When:2 to 4 weeks With:GIAN ORDOÑEZJOHANA Address: [address] [place] [address] Business (1) When:02/28/2023 Comments:The office is closed on Fridays. Please contact your PCP on February 28 for an appointment. Thank you! [facility]05[facility]17[facility]20[facility]Fish[facility] CenterComment on above:Result Comment: Electronically Signed By: NEVAEH WISE, Ramos\.br\Date and Time Signed: 02/23/23 16:[id number] Evaluation + Plan noteExtracted from: Title:ED Note [...] 02/15/23 12:39:00 EDT phenylephrine nasal, 2 spray(s), Norman, Nasal, Once, Stop date 02/15/23 12:42:00 EDT, [...] Complete Bilat 04/08/23 * CV Cardiovascular 02/15/23 [facility]05-09-2023 Evaluation + Plan note Future Scheduled Tests Radiology* CV Cardiovascular 02/15/23 [facility]05-09-2023 Hospital Discharge instructions Follow Up Care 02/15/2023 11:01:41 With:Vinita Delgadillo Address:Unknown When:02/18/2023 16:48:28 With:Erwin Hurd Address: [address] [place] [address]- Business (1) When:02/18/2023 16:48:12 With:GIAN HORTA Address: [address] [place] [address] Business (1) When:Within 3 Day(s) [facility] 02-02-2023 [facility] 02-02-2023 [facility]-20[facility] 02-02-2023 [facility]-2023 NoteOccupational Therapy Pt is unable to be seen for therapy at this time secondary to Refused. Will continue to check back as appropriate. Time attempted: 1500[facility]20[facility] Note Occupational Therapy Pt is unable to be seen for therapy at this time secondary to Refused due to N&V, nsg aware. Will continue to check back as appropriate. Time attempted: 1012[facility]04-25-2023 NotePhysical Therapy RN agreeable to pt participation as long as pt is agreeable. Pt is unable to be seen for therapy at this time secondary to Refused, RN informed.Will continue to check back as appropriate. Time attempted: 957[facility]04-25-2023 [facility] 01-31-2023 [facility]-20[facility]-20[facility] 01-31-2023 [facility]-2023 NotePhysical Therapy Hbg 7.2 this AM - currently pending 2 units RBC's. Will defer evaluation this morning and attempt back in PM as able. Júnior Espinoza PT, DPTUnDayton VA Medical Center04-24-2023 [facility]04[facility]-2023 [facility] 01-31-2023 [facility]04-23-2023 [facility]04-22-2023 NoteINSERTED WITHOUT COMPLICATION USING STERILE TECHNIQUE; DRAINING CLEAR YELLOW URINE; TO BE MONITORED AND MAINTAINED BY ANESTHESIA FOR DURATION OF THE CASE [facility]04-22-2023 [facility]Un[facility]04-22-2023 NoteUn[facility]04-22-2023 Note PROCEDURE: XR HIP RT 2 3V W PELVIS COMPARISON: None. HISTORY: Pain in right hip joint FINDINGS: BONES:No acute fracture or dislocation. Moderate degenerative spondylosis of the spine. Moderate bilateral hip osteoarthropathy with joint space narrowing SOFT TISSUES:Negative. No visible soft tissue swelling. EFFUSION:None visible. OTHER: Vascular calcifications with vascular stents IMPRESSION: Moderate degenerative changes Electronically authenticated by: MARIO CULLEN Date: 2023-01-29 14:17[facility]03-02-2023 [id number]:127[facility] note Future Appointments Appointment Date:12/02/2022 08:45:00 AM Scheduled Provider:Brennon Alvarado MD Location[facility] Appointment Type: New Patient 30 (FT) [facility] Future Appointments Appointment Date:12/23/2022 02:30:00 PM Scheduled Provider:Erwin Hurd MD Location:.[facility] Appointment Type:Vascular Follow Up (FT) [facility] Future Scheduled Tests Radiology* US Aorta, IVC, Iliac Duplex 04/08/23 * US PVR Lower EXT Complete Bilat 04/08/23 [facility] Future Appointments Appointment Date:02/17/2023 10:30:00 AM Scheduled Provider:Erwin Hurd MD Location:.[facility] Appointment Type:Vascular Follow Up (FT) Future Scheduled Tests Radiology* US Aorta, IVC, Iliac Duplex 04/08/23 * US PVR Lower EXT Complete Bilat 04/08/23 * CV Cardiovascular [facility]15[facility]23 [facility] Future Appointments Appointment Date:03/17/2023 01:00:00 PM Scheduled Provider:Erwin Hurd MD Location:[facility] Appointment Type:Vascular Follow Up (FT) Future Scheduled Tests Radiology* US Aorta, IVC, Iliac Duplex 04/08/23 * US PVR Lower EXT Complete Bilat 04/08/23 * CV Cardiovascular [facility]15/23 [facility] Future Appointments Appointment Date:04/13/2023 09:00:00 AM Scheduled Provider: Location:.[facility] Appointment Type:US Duplex Procedures (FT) Diagnostic Tests Pending * Path. Review 04/04/23 Future Scheduled Tests Radiology* US Aorta, IVC, Iliac Duplex 04/13/23 * US PVR Lower EXT Complete Bilat 04/13/23 * [facility] Future App[facility]ments Appointment Date:04/11/2023 12:30:00 PM Scheduled Provider: Location:[facility] Appointment Type:Surgery FT Future Scheduled Tests Radiology* CV Cardi[facility]15[facility]23 [facility] [employer] Other Evaluation note* Diagnosis Anemia, unspecified type- Primary documented in this encounter [facility] N[facility]ative - Reported* Type Description Date Medical History type II diabetes Medical History PAD Surgical History cholcystecomy Surgical History appendectomy Surgical History open heart surgery Surgical History femoral bypass Surgical History right leg amputation [facility] [employer] Other Hospital course Narrative No data available for this section [facility] No data available for this section [facility] on filedocumented in this encounter [facility] No data available for this section [facility] Summary Purpose Family History No Family History Records FoundNo Family History Records FoundNo Family History Records FoundNo Family History Records FoundNo Family History Records FoundNo Family History Records Found No data available for this section No Family History Records Found Advance Directives No [...] and content) DATE CREATED AUTHOR 04/29/2022 [facility] DATE CREATED AUTHOR AUTHOR'S ORGANIZ ATION 01/30/2023 [facility] DATE CREATED AUTHOR AUTHOR'S ORGANIZ ATION 02/10/2023 [facility] DATE CREATED AUTHOR AUTHOR'S ORGANIZ ATION 07/22/2023 Devonte Ortiz [facility] DATE CREATED AUTHOR AUTHOR'S ORGANIZ ATION 09/07/2023 [facility] DATE CREATED AUTHOR AUTHOR'S ORGANIZ ATION 10/29/2023 [facility] DATE CREATED AUTHOR AUTHOR'S ORGANIZ ATION 12/26/2023 [facility] Patient Care team informatio n (unrecognized section and content) Senior Writer Relationship Specialty Start Date End Date Gian Horta Jr., [address] [place] [address] PCP - General Internal Medicine 07/21/23 REASON FOR VISIT (unrecogniz ed section and content) REF NIRAJ Perdomo AKA PROSTH ETIC EVAL.script niraj FOR RECORDS PERTAINING TO [...] BE BASED ON THE PRIMARY CLINICAL RECORDS. [employer] [facility]. provides no warranty or guarantee of the accuracy or completeness of information in this document.
[2023-12-27 07:16] LABS: Basophils Percent Auto 0.3 % (0.2-2.0); Eosinophils Percent Auto 0.8 % (0.9-7.0); Immature Granulocytes Abs Auto 0.01 10^3/uL (0.00-0.03); Immature Granulocytes Pct Auto 0.3 % (0.0-0.5); Lymphocytes Absolute Auto 0.4 10^3/uL (1.2-3.8); Lymphocytes Percent Auto 9.1 % (20.5-60.0); Mean Corpuscular HGB Conc 29.7 g/dL (29.9-35.2); Mean Corpuscular Hemoglobin 26.9 pg (25.9-34.0); Mean Corpuscular Volume 90.8 fL (80.0-94.0); Mean Platelet Volume 10.5 fL (9.5-13.5); Monocytes Absolute Auto 0.5 10^3/uL (0.3-0.8); Monocytes Percent Auto 13.2 % (1.7-12.0); Neutrophils Percent Auto 76.3 % (43.0-75.0); Platelet Count 168 10^3/uL (150-450); Red Cell Distribution Width 17.6 % (11.0-15.0)
[2023-12-27 07:22] LABS: Hematocrit 23.6 % (42.0-54.0)
--- NOTE | 2023-12-27 07:22 | ED.EPISTAXI1 ---
HPI - Epistaxis General Chief Complaint: Epistaxis Stated Complaint: Epistaxis Time Seen by Provider: 12/27/23 06:50 Source: patient Mode of arrival: ambulance Limitations: physical limitation History of Present Illness HPI Narrative: 78-year-old male presents for nosebleed. Its on the left side and it started at 1 AM. He is on Eliquis and states he has had nosebleeds previously but no nasal surgery. The bleeding has been intermittent. A clamp was placed upon arrival which stopped the bleeding temporarily. Related Data Home Medications ?Medication ?Instructions ?Recorded ?Confirmed digoxin 125 mcg (0.125 mg) tablet 125 mcg PO DAILY 07/16/23 12/08/23 (Digox) metformin 500 mg tablet 500 mg PO DAILY 07/16/23 12/08/23 rosuvastatin 40 mg tablet 20 mg PO DAILY 07/16/23 12/08/23 vericiguat 10 mg tablet (Verquvo) 10 mg PO DAILY 07/16/23 12/08/23 aspirin 81 mg capsule 81 mg PO DAILY 09/18/23 12/08/23 biotin 10,000 mcg capsule 10,000 mcg PO BID 09/18/23 12/08/23 cilostazol 100 mg tablet 100 mg PO BID 09/18/23 12/08/23 ferrous sulfate 325 mg (65 mg 325 mg PO DAILY 09/18/23 12/08/23 iron) tablet (Feosol) acetaminophen 500 mg tablet 1,000 mg PO Q4H PRN pain 12/08/23 12/08/23 apixaban 5 mg tablet (Eliquis) 5 mg PO BID 12/08/23 12/08/23 mirtazapine 15 mg tablet 15 mg PO .QHS 12/08/23 12/08/23 nystatin 100,000 unit/mL oral 5 ml PO .TIDAC 12/08/23 12/08/23 suspension tramadol 50 mg tablet 50 mg PO Q8H PRN pain 12/08/23 12/08/23 trazodone 50 mg tablet 50 mg PO BID 12/08/23 12/08/23 Allergies Allergy/AdvReac Type Severity Reaction Status Date / Time iodine AdvReac Severe Vomiting Verified 12/27/23 06:26 promethazine [From Phenergan] AdvReac Severe Hallucinati Verified 12/27/23 06:26 ng shellfish derived AdvReac Severe Vomiting Verified 12/27/23 06:26 codeine AdvReac Intermediate Vomiting Verified 12/27/23 06:26 Review of Systems ROS Narrative A ten point review of systems is negative except as noted above. PFSH PFSH Medical History Paroxysmal atrial fibrillation ?I48.0 - Paroxysmal atrial fibrillation (ICD-10) CAD (coronary artery disease) ?I25.10 - Atherosclerotic heart disease of [place] coronary artery without angina pectoris (ICD-10) Benign essential hypertension ?I10 - Essential (primary) hypertension (ICD-10) COPD (chronic obstructive pulmonary disease) ?J44.9 - Chronic obstructive pulmonary disease, unspecified (ICD-10) Peripheral artery disease ?I73.9 - Peripheral vascular disease, unspecified (ICD-10) Complaint of melena ?K92.1 - Melena (ICD-10) FH: CABG (coronary artery bypass surgery) ?Z82.49 - Family history of ischemic heart disease and other diseases of the circulatory system (ICD-10) Diabetes ?E11.9 - Type 2 diabetes mellitus without complications (ICD-10) Femoral-popliteal bypass graft occlusion, right ?T82.898A - Other specified complication of vascular prosthetic devices, implants and grafts, initial encounter (ICD-10) Femoral-popliteal bypass graft occlusion, left ?T82.898A - Other specified complication of vascular prosthetic devices, implants and grafts, initial encounter (ICD-10) Anemia requiring transfusions ?D64.9 - Anemia, unspecified (ICD-10) Clot ?I82.90 - Acute embolism and thrombosis of unspecified vein (ICD-10) Amputation above knee ?S78.119A - Complete traumatic amputation at level between unspecified hip and knee, initial encounter (ICD-10) Family History Father Family history of diabetes mellitus Social History Within the past year, how often did you have a drink containing alcohol: never Score interpretation: A score less than 4 is consistent with normal alcohol consumption. 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 General: The patient appears well and in no apparent distress. Patient is resting comfortably on cart. Skin: Warm, dry, no pallor noted. There is no rash noted. Head: Normocephalic, atraumatic Eye: Normal conjunctiva, no drainage Ears, Nose, Mouth, and Throat: oral mucosa is moist. Nasal clamp in place. Cardiovascular: Not tachycardic Respiratory: Patient is in no distress, no accessory muscle use, lungs are clear to auscultation, no wheezing, rales or rhonchi Back: non-tender GI: Soft and nontender Musculoskeletal: Status post lower extremity amputations Neurological: A&O, normal speech Psychiatric: Cooperative Constitutional Vital Signs, click to edit/add: Last Vital Signs Temp 98 F 12/27/23 06:23 Pulse 88 12/27/23 06:23 Resp 20 12/27/23 06:35 BP 144/83 H 12/27/23 06:23 Pulse Ox 100 12/27/23 06:23 O2 Del Method Room Air 12/27/23 06:23 Course Vital Signs Vital signs: Vital Signs Temperature 98 F 12/27/23 06:23 Pulse Rate 88 12/27/23 06:23 Respiratory Rate 18 12/27/23 06:23 Blood Pressure 144/83 H 12/27/23 06:23 Pulse Oximetry 100 12/27/23 06:23 Oxygen Delivery Method Room Air 12/27/23 06:23 Temperature 98 F 12/27/23 06:23 Pulse Rate 88 12/27/23 06:23 Respiratory Rate 20 12/27/23 06:35 Blood Pressure 144/83 H 12/27/23 06:23 Pulse Oximetry 100 12/27/23 06:23 Oxygen Delivery Method Room Air 12/27/23 06:23 MDM - Epistaxis MDM Narrative Medical decision making narrative: The patient presented with left epistaxis. The following procedure was performed by me. Initially a 5.5 cm anterior inflatable packing was placed. He tolerated it well and it seemed to slow down the bleeding but he was still having a small amount of bleeding. Therefore, it was removed and I have now packed his left nares with Vaseline gauze packing which is now resulted in complete hemostasis. He is to have the packing removed in 3 days. Findings were discussed with the patient. The patient is anemic but appears to be near his baseline. Differential Diagnosis Differential diagnosis: Likely anterior epistaxis and posterior epistaxis Lab Data Attestation: I reviewed the patient's lab results. Labs: Lab Results 12/27/23 Range/Units 07:02 WBC 4.0 (4.0-11.0) 10^3/uL RBC 2.60 L (4.70-6.10) 10^6/uL Hgb 7.0 L (14.0-18.0) g/dL Hct 23.6 L* (42.0-54.0) % MCV 90.8 (80.0-94.0) fL MCH 26.9 (25.9-34.0) pg MCHC 29.7 L (29.9-35.2) g/dL RDW 17.6 H (11.0-15.0) % Plt Count 168 (150-450) 10^3/uL MPV 10.5 (9.5-13.5) fL Neut % (Auto) 76.3 H (43.0-75.0) % Lymph % (Auto) 9.1 L (20.5-60.0) % [place] % (Auto) 13.2 H (1.7-12.0) % Eos % (Auto) 0.8 L (0.9-7.0) % Baso % (Auto) 0.3 (0.2-2.0) % Neut # (Auto) 3.0 (1.4-6.5) 10^3/uL Lymph # (Auto) 0.4 L (1.2-3.8) 10^3/uL [place] # (Auto) 0.5 (0.3-0.8) 10^3/uL Eos # (Auto) 0.0 (0.0-0.7) 10^3/uL Baso # (Auto) 0.0 (0.0-0.1) 10^3/uL Abs Immat Gran (auto) 0.01 (0.00-0.03) 10^3/uL Imm/Tot Granulo (auto) 0.3 (0.0-0.5) % PT 12.2 H (9.0-11.6) sec INR 1.16 Sodium 133 L (136-145) mmol/L Potassium 3.5 (3.5-5.1) mmol/L Chloride 97 L (98-107) mmol/L Carbon Dioxide 29.1 (21.0-32.0) mmol/L Anion Gap 10.4 BUN 12.0 (7.0-18.0) mg/dL Creatinine 0.54 L (0.70-1.30) mg/dL Est GFR ( Amer) >60 (>=60) Est GFR (Non-Af Amer) >60 (>=60) BUN/Creatinine Ratio 22.2 Glucose 115 H (74-106) mg/dL Calcium 7.9 L (8.5-10.1) mg/dL Discharge Plan Discharge Stand Alone Forms: Portal Instructions Chief Complaint: Epistaxis Clinical Impression: Epistaxis Patient Disposition: Home, Self-Care Time of Disposition Decision: 08:38 Condition: Good Mode of Transportation: EMS Prescriptions / Home Meds: No Action rosuvastatin 40 mg tablet 20 mg PO DAILY metformin 500 mg tablet 500 mg PO DAILY Patient Comments: TAKES WITH SUPPER digoxin [Digox] 125 mcg (0.125 mg) tablet 125 mcg PO DAILY Patient Comments: HOLD IF heart RATE IS LESS THAN 70 Verquvo 10 mg tablet 10 mg PO DAILY Rx Instructions: must administer with a meal/food cilostazol 100 mg tablet 100 mg PO BID biotin 10,000 mcg capsule 10,000 mcg PO BID aspirin 81 mg capsule 81 mg PO DAILY ferrous sulfate [Feosol] 325 mg (65 mg iron) tablet 325 mg PO DAILY acetaminophen 500 mg tablet 1,000 mg PO Q4H PRN (Reason: pain) Eliquis 5 mg tablet 5 mg PO BID mirtazapine 15 mg tablet 15 mg PO .QHS nystatin 100,000 unit/mL suspension 5 ml PO .TIDAC Patient Comments: FILLED 11/27/23 FOR 14 DAYS trazodone 50 mg tablet 50 mg PO BID tramadol 50 mg tablet 50 mg PO Q8H PRN (Reason: pain) Patient Comments: FILLED 12/05/23 FOR 7 DAYS Rx Instructions: SEVERE PAIN 8-10 Print Language: Vietnamese Instructions: Nosebleed (ED) Additional Instructions: Follow-up with Dr. Delgadillo in 3 days for packing removal. If unable to do so see your PCP. If unable to see your PCP come back to the emergency department. Referrals: LUCILLE HORTA MD [Primary Care Provider] - 1 week
[2023-12-27 07:27] LABS: Anion Gap 10.4; BUN Creatinine Ratio 22.2; Calcium 7.9 mg/dL (8.5-10.1); Carbon Dioxide 29.1 mmol/L (21.0-32.0); Chloride 97 mmol/L (98-107); Estimated GFR (African America >60 (>=60); Estimated GFR (Non-African Ame >60 (>=60); Glucose 115 mg/dL (74-106); Potassium 3.5 mmol/L (3.5-5.1); Sodium 133 mmol/L (136-145)
[2023-12-27 07:33] LABS: INR 1.16; Prothrombin Time 12.2 sec (9.0-11.6)
[2023-12-27] MEDS: OXYCODONE HCL/ACETAMINOPHEN 5MG/325MG 1 TAB PO (07:47)
== END 2023-12-27 09:42 | disposition home or self-care (01) ==
PROVIDERS: Internal Medicine; Emergency Provider Emergency Medicine; PCP Internal Medicine
DX: R04.0 Epistaxis (principal); I48.0 Paroxysmal atrial fibrillation; I25.10 Atherosclerotic heart disease of native coronary artery without angina pectoris; I10 Essential (primary) hypertension; J44.9 Chronic obstructive pulmonary disease, unspecified; I73.9 Peripheral vascular disease, unspecified; E11.9 Type 2 diabetes mellitus without complications; Z79.01 Long term (current) use of anticoagulants; Z79.82 Long term (current) use of aspirin; Z79.899 Other long term (current) drug therapy; Z79.84 Long term (current) use of oral hypoglycemic drugs; Z87.891 Personal history of nicotine dependence
CPT/HCPCS: 30901; 36415; 80048; 85025; 85610; 99283

== ENCOUNTER 2024-01-10 11:12 | Outpatient (REF) | payer MEDICARE, SELFPAY ==
[2024-01-10 11:25] LABS: Mean Corpuscular HGB Conc 29.3 g/dL (29.9-35.2); Mean Corpuscular Hemoglobin 25.5 pg (25.9-34.0); Mean Platelet Volume 11.6 fL (9.5-13.5); Platelet Count 114 10^3/uL (150-450); Red Blood Count 2.47 10^6/uL (4.70-6.10); Red Cell Distribution Width 17.7 % (11.0-15.0); White Blood Count 2.8 10^3/uL (4.0-11.0)
[2024-01-10 11:32] LABS: Hematocrit 21.5 % (42.0-54.0); Hemoglobin 6.3 g/dL (14.0-18.0)
== END 2024-01-10 11:13 | disposition home or self-care (01) ==
LOC: LAB 11:12
PROVIDERS: PCP Internal Medicine; Visit Provider Internal Medicine
DX: D64.9 Anemia, unspecified (principal)
CPT/HCPCS: 36415; 85027

== ENCOUNTER 2024-01-11 10:57 | Emergency (ER) | payer MEDICARE, SELFPAY ==
[2024-01-11] VITALS (17 sets, daily range): BP systolic 106–118; BP diastolic 50–55; PULSE 91–157; TEMP 37; O2SAT 96–100; BMI 18.8
--- NOTE | 2024-01-11 11:12 | ECG_ITS ---
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
--- NOTE | 2024-01-11 11:13 | ED_ITS ---
HPI HPI - General Adult General Chief complaint: Recheck/Abnormal Lab/Rx Stated complaint: ABNORMAL LABS Time Seen by Provider: 01/11/24 10:59 Source: patient Mode of arrival: walk-in Limitations: no limitations and physical limitation History of Present Illness HPI narrative: 78-year-old male presents for evaluation of anemia. He reportedly had a hemoglobin of 6.2 yesterday. He also states that he took 2 Tylenol tablets 4 times last night, each time a few hours apart. He was taking it for the pain in his left leg where he had leg amputation a few weeks ago. He does not have abdominal pain or vomiting. Related Data Home Medications ?Medication ?Instructions ?Recorded ?Confirmed digoxin 125 mcg (0.125 mg) tablet 125 mcg PO DAILY 07/16/23 01/11/24 (Digox) metformin 500 mg tablet 500 mg PO DAILY 07/16/23 01/11/24 vericiguat 10 mg tablet (Verquvo) 10 mg PO DAILY 07/16/23 01/11/24 aspirin 81 mg capsule 81 mg PO DAILY 09/18/23 01/11/24 biotin 10,000 mcg capsule 10,000 mcg PO BID 09/18/23 01/11/24 cilostazol 100 mg tablet 100 mg PO BID 09/18/23 01/11/24 ferrous sulfate 325 mg (65 mg 325 mg PO DAILY 09/18/23 01/11/24 iron) tablet (Feosol) acetaminophen 500 mg tablet 1,000 mg PO Q4H PRN pain 12/08/23 01/11/24 apixaban 5 mg tablet (Eliquis) 5 mg PO BID 12/08/23 01/11/24 nystatin 100,000 unit/mL oral 5 ml PO .TIDAC 12/08/23 01/11/24 suspension cyanocobalamin (vitamin B-12) 1,000 mcg IM .TWICE A MONTH 01/11/24 01/11/24 1,000 mcg/mL injection solution doxycycline hyclate 100 mg capsule 100 mg PO . bid 01/11/24 01/11/24 doxycycline hyclate 100 mg tablet 100 mg PO BID 01/11/24 01/11/24 ezetimibe 10 mg tablet 10 mg PO .HS 01/11/24 01/11/24 oxycodone 5 mg tablet 5 mg PO Q8H PRN pain 01/11/24 01/11/24 Allergies Allergy/AdvReac Type Severity Reaction Status Date / Time iodine AdvReac Severe Vomiting Verified 12/27/23 06:26 promethazine [From Phenergan] AdvReac Severe Hallucinati Verified 12/27/23 06:26 ng shellfish derived AdvReac Severe Vomiting Verified 12/27/23 06:26 codeine AdvReac Intermediate Vomiting Verified 12/27/23 06:26 Opioid HPI Opioid Management Most Recent Opioid Data: Last Pain Scale 8 12/27/23 07:47 Review of Systems ROS Narrative A ten point review of systems is negative except as noted above. PFSH PFSH Medical History Paroxysmal atrial fibrillation ?I48.0 - Paroxysmal atrial fibrillation (ICD-10) CAD (coronary artery disease) ?I25.10 - Atherosclerotic heart disease of [place] coronary artery without angina pectoris (ICD-10) Benign essential hypertension ?I10 - Essential (primary) hypertension (ICD-10) COPD (chronic obstructive pulmonary disease) ?J44.9 - Chronic obstructive pulmonary disease, unspecified (ICD-10) Peripheral artery disease ?I73.9 - Peripheral vascular disease, unspecified (ICD-10) Complaint of melena ?K92.1 - Melena (ICD-10) FH: CABG (coronary artery bypass surgery) ?Z82.49 - Family history of ischemic heart disease and other diseases of the circulatory system (ICD-10) Diabetes ?E11.9 - Type 2 diabetes mellitus without complications (ICD-10) Femoral-popliteal bypass graft occlusion, right ?T82.898A - Other specified complication of vascular prosthetic devices, implants and grafts, initial encounter (ICD-10) Femoral-popliteal bypass graft occlusion, left ?T82.898A - Other specified complication of vascular prosthetic devices, implants and grafts, initial encounter (ICD-10) Anemia requiring transfusions ?D64.9 - Anemia, unspecified (ICD-10) Clot ?I82.90 - Acute embolism and thrombosis of unspecified vein (ICD-10) Amputation above knee ?S78.119A - Complete traumatic amputation at level between unspecified hip and knee, initial encounter (ICD-10) Family History Father Family history of diabetes mellitus Social History Within the past year, how often did you have a drink containing alcohol: never Score interpretation: A score less than 4 is consistent with normal alcohol consumption. 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 General: The patient appears well and in no apparent distress. Patient is sitting upright on the cart. He is hard of hearing Skin: Warm, dry, no pallor noted. There is no rash noted. Head: Normocephalic, atraumatic Eye: Normal conjunctiva, no drainage Ears, Nose, Mouth, and Throat: oral mucosa is moist. Nares patent. Cardiovascular: Regular Rate and Rhythm Respiratory: Patient is in no distress, no accessory muscle use, lungs are clear to auscultation, no wheezing, rales or rhonchi Back: non-tender GI: Soft and nontender Musculoskeletal: Left leg amputation site is examined. Srinivas are still in place. There is erythema. There is no purulent drainage. Photos were taken for documentation. Neurological: Awake and alert Psychiatric: Cooperative Constitutional Vital Signs, click to edit/add: Last Vital Signs Temp 98.6 F 01/11/24 10:59 Pulse 106 H 01/11/24 10:59 Resp 22 H 01/11/24 10:59 BP 118/55 01/11/24 10:59 Pulse Ox 99 01/11/24 10:59 O2 Del Method Room Air 01/11/24 10:59 Course Vital Signs Vital signs: Vital Signs Temperature 98.6 F 01/11/24 10:59 Pulse Rate 106 H 01/11/24 10:59 Respiratory Rate 22 H 01/11/24 10:59 Blood Pressure 118/55 01/11/24 10:59 Pulse Oximetry 99 01/11/24 10:59 Oxygen Delivery Method Room Air 01/11/24 10:59 Temperature 98.6 F 01/11/24 10:59 Pulse Rate 106 H 01/11/24 10:59 Respiratory Rate 22 H 01/11/24 10:59 Blood Pressure 118/55 01/11/24 10:59 Pulse Oximetry 99 01/11/24 10:59 Oxygen Delivery Method Room Air 01/11/24 10:59 Medical Decision Making MDM Narrative Medical decision making narrative: The patient is anemic with a hemoglobin of 7.1. His acetaminophen level is immeasurable and his LFTs are normal. He is discharged and is being sent to the infusion center to have his blood transfusion that was previously ordered by his PCP. Lab Data Lab results reviewed: Yes I reviewed the patient's lab results Labs: Lab Results 01/11/24 Range/Units 11:08 WBC 3.3 L (4.0-11.0) 10^3/uL RBC 2.73 L (4.70-6.10) 10^6/uL Hgb 7.1 L (14.0-18.0) g/dL Hct 24.1 L (42.0-54.0) % MCV 88.3 (80.0-94.0) fL MCH 26.0 (25.9-34.0) pg MCHC 29.5 L (29.9-35.2) g/dL RDW 17.7 H (11.0-15.0) % Plt Count 122 L (150-450) 10^3/uL MPV 12.2 (9.5-13.5) fL Neut % (Auto) 82.5 H (43.0-75.0) % Lymph % (Auto) 8.0 L (20.5-60.0) % [place] % (Auto) 8.6 (1.7-12.0) % Eos % (Auto) 0.3 L (0.9-7.0) % Baso % (Auto) 0.0 L (0.2-2.0) % Neut # (Auto) 2.7 (1.4-6.5) 10^3/uL Lymph # (Auto) 0.3 L (1.2-3.8) 10^3/uL [place] # (Auto) 0.3 (0.3-0.8) 10^3/uL Eos # (Auto) 0.0 (0.0-0.7) 10^3/uL Baso # (Auto) 0.0 (0.0-0.1) 10^3/uL Abs Immat Gran (auto) 0.02 (0.00-0.03) 10^3/uL Imm/Tot Granulo (auto) 0.6 H (0.0-0.5) % Sodium 127 L (136-145) mmol/L Potassium 3.6 (3.5-5.1) mmol/L Chloride 93 L (98-107) mmol/L Carbon Dioxide 25.3 (21.0-32.0) mmol/L Anion Gap 12.3 BUN 20.0 H (7.0-18.0) mg/dL Creatinine 0.73 (0.70-1.30) mg/dL Est GFR ( Amer) >60 (>=60) Est GFR (Non-Af Amer) >60 (>=60) BUN/Creatinine Ratio 27.4 Glucose 164 H (74-106) mg/dL Calcium 7.7 L (8.5-10.1) mg/dL Total Bilirubin 0.3 (0.2-1.0) mg/dL Direct Bilirubin 0.2 (0.0-0.2) mg/dL AST 40 H (15-37) U/L ALT 21 (16-63) U/L Alkaline Phosphatase 82 (46-116) U/L Total Protein 6.9 (6.4-8.2) g/dL Albumin 2.0 L (3.4-5.0) g/dL Globulin 4.9 g/dL Albumin/Globulin Ratio 0.4 Acetaminophen <2.0 L (10.0-30.0) ug/mL Discharge Plan Discharge Stand Alone Forms: Portal Instructions Chief Complaint: Recheck/Abnormal Lab/Rx Clinical Impression: Anemia, Ingestion of nontoxic substance Patient Disposition: Home, Self-Care Time of Disposition Decision: 13:20 Condition: Good Mode of Transportation: Private Vehicle Prescriptions / Home Meds: No Action metformin 500 mg tablet 500 mg PO DAILY Patient Comments: TAKES WITH SUPPER digoxin [Digox] 125 mcg (0.125 mg) tablet 125 mcg PO DAILY Patient Comments: HOLD IF heart RATE IS LESS THAN 70 Verquvo 10 mg tablet 10 mg PO DAILY Rx Instructions: must administer with a meal/food cilostazol 100 mg tablet 100 mg PO BID biotin 10,000 mcg capsule 10,000 mcg PO BID aspirin 81 mg capsule 81 mg PO DAILY ferrous sulfate [Feosol] 325 mg (65 mg iron) tablet 325 mg PO DAILY doxycycline hyclate 100 mg capsule 100 mg PO . bid doxycycline hyclate 100 mg tablet 100 mg PO BID cyanocobalamin (vitamin B-12) 1,000 mcg/mL solution 1,000 mcg IM .TWICE A MONTH ezetimibe 10 mg tablet 10 mg PO .HS oxycodone 5 mg tablet 5 mg PO Q8H PRN (Reason: pain) acetaminophen 500 mg tablet 1,000 mg PO Q4H PRN (Reason: pain) Eliquis 5 mg tablet 5 mg PO BID nystatin 100,000 unit/mL suspension 5 ml PO .TIDAC Patient Comments: FILLED 11/27/23 FOR 14 DAYS Print Language: Swedish Instructions: Anemia (ED) Referrals: LUCILLE HORTA MD [Primary Care Provider] - 1 week
[2024-01-11 11:27] LABS: Eosinophils Percent Auto 0.3 % (0.9-7.0); Hematocrit 24.1 % (42.0-54.0); Hemoglobin 7.1 g/dL (14.0-18.0); Immature Granulocytes Abs Auto 0.02 10^3/uL (0.00-0.03); Immature Granulocytes Pct Auto 0.6 % (0.0-0.5); Lymphocytes Absolute Auto 0.3 10^3/uL (1.2-3.8); Mean Corpuscular HGB Conc 29.5 g/dL (29.9-35.2); Mean Corpuscular Volume 88.3 fL (80.0-94.0); Mean Platelet Volume 12.2 fL (9.5-13.5); Monocytes Absolute Auto 0.3 10^3/uL (0.3-0.8); Monocytes Percent Auto 8.6 % (1.7-12.0); Neutrophils Absolute Auto 2.7 10^3/uL (1.4-6.5); Neutrophils Percent Auto 82.5 % (43.0-75.0); Platelet Count 122 10^3/uL (150-450); Red Blood Count 2.73 10^6/uL (4.70-6.10); Red Cell Distribution Width 17.7 % (11.0-15.0); White Blood Count 3.3 10^3/uL (4.0-11.0)
[2024-01-11 11:49] LABS: Acetaminophen <2.0 ug/mL (10.0-30.0); Alanine Aminotransferase 21 U/L (16-63); Albumin Globulin Ratio 0.4; Alkaline Phosphatase 82 U/L (46-116); Anion Gap 12.3; Aspartate Amino Transferase 40 U/L (15-37); BUN Creatinine Ratio 27.4; Bilirubin Direct 0.2 mg/dL (0.0-0.2); Bilirubin Total 0.3 mg/dL (0.2-1.0); Calcium 7.7 mg/dL (8.5-10.1); Carbon Dioxide 25.3 mmol/L (21.0-32.0); Chloride 93 mmol/L (98-107); Estimated GFR (African America >60 (>=60); Estimated GFR (Non-African Ame >60 (>=60); Globulin 4.9 g/dL; Glucose 164 mg/dL (74-106); Potassium 3.6 mmol/L (3.5-5.1); Sodium 127 mmol/L (136-145); Total Protein 6.9 g/dL (6.4-8.2)
== END 2024-01-11 13:32 | disposition home or self-care (01) ==
PROVIDERS: Emergency Provider Emergency Medicine; PCP Internal Medicine
DX: D64.9 Anemia, unspecified (principal); Z03.6 Encounter for observation for suspected toxic effect from ingested substance ruled out; I48.0 Paroxysmal atrial fibrillation; I25.10 Atherosclerotic heart disease of native coronary artery without angina pectoris; I10 Essential (primary) hypertension; J44.9 Chronic obstructive pulmonary disease, unspecified; I73.9 Peripheral vascular disease, unspecified; E11.9 Type 2 diabetes mellitus without complications; Z87.891 Personal history of nicotine dependence; Z89.612 Acquired absence of left leg above knee; Z79.899 Other long term (current) drug therapy; Z79.84 Long term (current) use of oral hypoglycemic drugs; Z79.01 Long term (current) use of anticoagulants
CPT/HCPCS: 36415; 80048; 80076; 80329; 85025; 86850; 86900; 86901; 93005; 99284

== ENCOUNTER 2024-01-11 13:30 | Outpatient (OUT) | payer MEDICARE, SELFPAY ==
[2024-01-11 13:47] VITALS: BP 109/51; PULSE 106; TEMP 37.4; O2SAT 95
--- NOTE | 2024-01-11 13:52 | PC.NURSE ---
1330 receiveded via cart from ER. Alert oriented, very hard of hearing. explained blood transfusion and what to expect while here, verbalizes understanding. in iv saline lock intact rt wrist. lung clear heart tones strong regular
[2024-01-11 14:15] VITALS: BP 109/51; PULSE 106; TEMP 37.4; O2SAT 95
--- NOTE | 2024-01-11 14:26 | PC.NURSE ---
1417 prbc's initiated at 80ml/hr for 1st 15 mins. patient instructed on s/s of rxn, educated to call nurse if experiences any unusual s/s. verbalizes understanding
[2024-01-11 14:32] VITALS: BP 111/63; PULSE 95; TEMP 37.6
--- NOTE | 2024-01-11 14:38 | PC.NURSE ---
tolerating prbc's without any issues. Moans out, when questioned states he has phantom pain left leg, patient noted to be BLE amputee rt leg approx 1 year ago and left above knee stump janiya wrap intact.
--- NOTE | 2024-01-11 14:39 | PC.NURSE ---
drinks water approx 1/2 bottle. declines any food, offered meal. repositioned to rt side for comfort
[2024-01-11 15:08] VITALS: BP 106/59; PULSE 98; TEMP 37.9
[2024-01-11 15:16] VITALS: TEMP 38.3
[2024-01-11 15:18] VITALS: BP 102/62; PULSE 103; TEMP 38.3
--- NOTE | 2024-01-11 15:45 | PC.NURSE ---
1440 crying out, when questioned if having pain, states he's having pain left leg stump. reviewed ER records, home med list stated he had oxycodone 5 mg po prn pain. Called , discussed with her patients situation, She states last time he had oxycodone was last evening, other than the tylenol he took last night. requested she bring one of his pain medications in for patient to help control his pain. She stated she would be here within next 30 mins.
--- NOTE | 2024-01-11 15:51 | PC.NURSE ---
1510 Patient noted to have fever denies any itching shortness of breath or pain other than left stump area. heart tones regular,, lungs clear to auscultation. dressing removed from left stump, incision noted to be red with some areas of yellowish areas. , noted area on anterior aspect of upper thigh has a band approx 1 inch blackish eschar area, no drainage noted, left open to air, diaper changed, patient incontinent. 1520 temp noted to be 100.9 temporal. blood transfusion stopped entire tubing taken down and returned to lab, normal saline initiated at [facility]. lab notified of this. 1525 present and gives patient oxycodone 5 mg from home for his pain. ER notified that he will be returning back down to their department for re-evaluation. 1530 transported to ER per cart. Report given to Pablo Hess RN and Amanda Parks RN. ER staff notified of transfusion protocol being initiated.
== END 2024-01-11 13:31 | disposition home or self-care (01) ==
LOC: INF 13:30
PROVIDERS: PCP Internal Medicine; Visit Provider Internal Medicine
DX: D50.9 Iron deficiency anemia, unspecified (principal)
CPT/HCPCS: 36415; 36430; 86850; 86880; 86900; 86901; P9016

== ENCOUNTER 2024-01-11 15:35 | Emergency (ER) | payer MEDICARE, SELFPAY ==
[2024-01-11 15:38] VITALS: BP 96/55; PULSE 109; TEMP 37.2; O2SAT 98
--- NOTE | 2024-01-11 15:47 | ED.GENADUL1 ---
HPI HPI - General Adult General Chief complaint: Fever Stated complaint: FEVER Time Seen by Provider: 01/11/24 15:38 Source: other Source information: Pete from infusion center History of Present Illness HPI narrative: 78-year-old male presented because of a fever. He was seen earlier today because he may have taken too much Tylenol last night and he was supposed to have a blood transfusion. His liver function test were normal and he had an measurable acetaminophen level and he was discharged to the infusion center to receive his outpatient blood transfusion. There he had a fever of 100.6. His WBC is normal. He is already on doxycycline and he is accompanied by his and he is at home with his . His is trying to get him back into [facility] and his PCP is working on that matter. Related Data Home Medications ?Medication ?Instructions ?Recorded ?Confirmed digoxin 125 mcg (0.125 mg) tablet 125 mcg PO DAILY 07/16/23 01/11/24 (Digox) metformin 500 mg tablet 500 mg PO DAILY 07/16/23 01/11/24 vericiguat 10 mg tablet (Verquvo) 10 mg PO DAILY 07/16/23 01/11/24 aspirin 81 mg capsule 81 mg PO DAILY 09/18/23 01/11/24 biotin 10,000 mcg capsule 10,000 mcg PO BID 09/18/23 01/11/24 cilostazol 100 mg tablet 100 mg PO BID 09/18/23 01/11/24 ferrous sulfate 325 mg (65 mg 325 mg PO DAILY 09/18/23 01/11/24 iron) tablet (Feosol) acetaminophen 500 mg tablet 1,000 mg PO Q4H PRN pain 12/08/23 01/11/24 apixaban 5 mg tablet (Eliquis) 5 mg PO BID 12/08/23 01/11/24 nystatin 100,000 unit/mL oral 5 ml PO .TIDAC 12/08/23 01/11/24 suspension cyanocobalamin (vitamin B-12) 1,000 mcg IM .TWICE A MONTH 01/11/24 01/11/24 1,000 mcg/mL injection solution doxycycline hyclate 100 mg capsule 100 mg PO . bid 01/11/24 01/11/24 doxycycline hyclate 100 mg tablet 100 mg PO BID 01/11/24 01/11/24 ezetimibe 10 mg tablet 10 mg PO .HS 01/11/24 01/11/24 oxycodone 5 mg tablet 5 mg PO Q8H PRN pain 01/11/24 01/11/24 Previous Rx's ?Medication ?Instructions ?Recorded doxycycline hyclate 100 mg capsule 100 mg PO BID 7 days #14 caps 01/11/24 Allergies Allergy/AdvReac Type Severity Reaction Status Date / Time iodine AdvReac Severe Vomiting Verified 12/27/23 06:26 promethazine [From Phenergan] AdvReac Severe Hallucinati Verified 12/27/23 06:26 ng shellfish derived AdvReac Severe Vomiting Verified 12/27/23 06:26 codeine AdvReac Intermediate Vomiting Verified 12/27/23 06:26 Opioid HPI Opioid Management Most Recent Opioid Data: Last Pain Scale 8 12/27/23 07:47 Review of Systems ROS Narrative A ten point review of systems is negative except as noted above. [facility] Paroxysmal atrial fibrillation ?I48.0 - Paroxysmal atrial fibrillation (ICD-10) CAD (coronary artery disease) ?I25.10 - Atherosclerotic heart disease of [place] coronary artery without angina pectoris (ICD-10) Benign essential hypertension ?I10 - Essential (primary) hypertension (ICD-10) COPD (chronic obstructive pulmonary disease) ?J44.9 - Chronic obstructive pulmonary disease, unspecified (ICD-10) Peripheral artery disease ?I73.9 - Peripheral vascular disease, unspecified (ICD-10) Complaint of melena ?K92.1 - Melena (ICD-10) FH: CABG (coronary artery bypass surgery) ?Z82.49 - Family history of ischemic heart disease and other diseases of the circulatory system (ICD-10) Diabetes ?E11.9 - Type 2 diabetes mellitus without complications (ICD-10) Femoral-popliteal bypass graft occlusion, right ?T82.898A - Other specified complication of vascular prosthetic devices, implants and grafts, initial encounter (ICD-10) Femoral-popliteal bypass graft occlusion, left ?T82.898A - Other specified complication of vascular prosthetic devices, implants and grafts, initial encounter (ICD-10) Anemia requiring transfusions ?D64.9 - Anemia, unspecified (ICD-10) Clot ?I82.90 - Acute embolism and thrombosis of unspecified vein (ICD-10) Amputation above knee ?S78.119A - Complete traumatic amputation at level between unspecified hip and knee, initial encounter (ICD-10) Family History Father Family history of diabetes mellitus Social History Within the past year, how often did you have a drink containing alcohol: never Score interpretation: A score less than 4 is consistent with normal alcohol consumption. 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 General: The patient appears in no apparent distress. Patient is resting comfortably on cart. Skin: Warm, dry, no pallor noted. There is no rash noted. Head: Normocephalic, atraumatic Eye: Normal conjunctiva, no drainage Ears, Nose, Mouth, and Throat: oral mucosa is moist. Nares patent. Cardiovascular: Regular Rate and Rhythm Respiratory: Patient is in no distress, no accessory muscle use, lungs are clear to auscultation, no wheezing, rales or rhonchi Back: non-tender GI: Soft and nontender Musculoskeletal: Left leg stump surgical wound is inspected. Srinivas are in place. There is some surrounding erythema. Neurological: A&O, normal speech Psychiatric: Cooperative Constitutional Vital Signs, click to edit/add: Last Vital Signs Temp 98.9 F 01/11/24 15:38 Pulse 109 H 01/11/24 15:38 Resp 18 01/11/24 15:38 BP 96/55 01/11/24 15:38 Pulse Ox 98 01/11/24 15:38 O2 Del Method Room Air 01/11/24 15:38 Course Vital Signs Vital signs: Vital Signs Temperature 98.9 F 01/11/24 15:38 Pulse Rate 109 H 01/11/24 15:38 Respiratory Rate 18 01/11/24 15:38 Blood Pressure 96/55 01/11/24 15:38 Pulse Oximetry 98 01/11/24 15:38 Oxygen Delivery Method Room Air 01/11/24 15:38 Temperature 98.9 F 01/11/24 15:38 Pulse Rate 109 H 01/11/24 15:38 Respiratory Rate 18 01/11/24 15:38 Blood Pressure 96/55 01/11/24 15:38 Pulse Oximetry 98 01/11/24 15:38 Oxygen Delivery Method Room Air 01/11/24 15:38 Medical Decision Making MDM Narrative Medical decision making narrative: Findings were discussed with the patient's vascular surgeon, Dr. Hurd. His vital signs and WBC were discussed and a photo of the surgical wound was sent to him. The patient will continue the doxycycline but will start Betadine painting and she was instructed in that matter. The patient will be seen in the office by Dr. Hurd in a week from tomorrow. Treatment diagnosis and follow-up were discussed with the patient and his . At this point I doubt transfusion reaction but it is certainly a possibility. Differential Diagnosis Differential Diagnosis: Surgical wound infection, cellulitis, transfusion reaction Discharge Plan Discharge Stand Alone Forms: Portal Instructions Chief Complaint: Fever Clinical Impression: Infected surgical wound Patient Disposition: Home, Self-Care Time of Disposition Decision: 15:46 Condition: Good Mode of Transportation: Private Vehicle Prescriptions / Home Meds: New doxycycline hyclate 100 mg capsule 100 mg PO BID 7 Days Qty: 14 0RF No Action metformin 500 mg tablet 500 mg PO DAILY Patient Comments: TAKES WITH SUPPER digoxin [Digox] 125 mcg (0.125 mg) tablet 125 mcg PO DAILY Patient Comments: HOLD IF heart RATE IS LESS THAN 70 Verquvo 10 mg tablet 10 mg PO DAILY Rx Instructions: must administer with a meal/food cilostazol 100 mg tablet 100 mg PO BID biotin 10,000 mcg capsule 10,000 mcg PO BID aspirin 81 mg capsule 81 mg PO DAILY ferrous sulfate [Feosol] 325 mg (65 mg iron) tablet 325 mg PO DAILY doxycycline hyclate 100 mg capsule 100 mg PO . bid Hold Instructions: Order Change doxycycline hyclate 100 mg tablet 100 mg PO BID cyanocobalamin (vitamin B-12) 1,000 mcg/mL solution 1,000 mcg IM .TWICE A MONTH ezetimibe 10 mg tablet 10 mg PO .HS oxycodone 5 mg tablet 5 mg PO Q8H PRN (Reason: pain) acetaminophen 500 mg tablet 1,000 mg PO Q4H PRN (Reason: pain) Eliquis 5 mg tablet 5 mg PO BID nystatin 100,000 unit/mL suspension 5 ml PO .TIDAC Patient Comments: FILLED 11/27/23 FOR 14 DAYS Print Language: Greenlandic Instructions: Surgical Site Infections (ED) Additional Instructions: Betadine painting as shown once a day. See Dr. Hurd next week on , January 18. Continue the doxycycline. Referrals: LUCILLE HORTA MD [Primary Care Provider] - 1 week
== END 2024-01-11 16:31 | disposition home or self-care (01) ==
PROVIDERS: Emergency Provider Emergency Medicine; PCP Internal Medicine
DX: T87.44 Infection of amputation stump, left lower extremity (principal); Z89.612 Acquired absence of left leg above knee; Z79.899 Other long term (current) drug therapy; Z79.84 Long term (current) use of oral hypoglycemic drugs; Z79.82 Long term (current) use of aspirin; Z79.01 Long term (current) use of anticoagulants; I48.0 Paroxysmal atrial fibrillation; I25.10 Atherosclerotic heart disease of native coronary artery without angina pectoris; I10 Essential (primary) hypertension; J44.9 Chronic obstructive pulmonary disease, unspecified; I73.9 Peripheral vascular disease, unspecified; E11.9 Type 2 diabetes mellitus without complications; Z87.891 Personal history of nicotine dependence; D50.9 Iron deficiency anemia, unspecified; Z03.6 Encounter for observation for suspected toxic effect from ingested substance ruled out
CPT/HCPCS: 36415; 36430; 80048; 80076; 80329; 85025; 86850; 86880; 86900; 86901; 93005; 99283; 99284; P9016

== ENCOUNTER 2024-01-18 13:00 | Observation (INO) | payer MEDICARE, SELFPAY ==
[2024-01-18] VITALS (22 sets, daily range): BP systolic 93–145; BP diastolic 43–74; PULSE 89–136; TEMP 36.7–37.4; O2SAT 94–99; BMI 23.9
--- NOTE | 2024-01-18 13:44 | ED.WOUNDLAC1 ---
Documented by User: SELAM Elam 01/18/24 15:50 HPI - Wound/Laceration General Chief Complaint: Wound/Laceration Stated Complaint: LOWER EXTREMITY PAIN Time Seen by Provider: 01/18/24 13:10 Source: patient and caregiver Mode of arrival: ambulance History of Present Illness HPI narrative: 78-year-old male, history of left AKA 1 month ago, presents to the emergency department with report of wound dehiscence from [facility]. There was concern that there was bone showing. Patient complains of some mild pain, tenderness, but currently tolerable. Patient voices no other complaints. Denies any fever, chills. Quality:?wound Severity:?mild Timing:?as above, wound opened today Context: Normal setting and activity? Modifying factors:?None Associated symptoms: None Related Data Home Medications ?Medication ?Instructions ?Recorded ?Confirmed digoxin 125 mcg (0.125 mg) tablet 125 mcg PO DAILY 07/16/23 01/18/24 (Digox) vericiguat 10 mg tablet (Verquvo) 10 mg PO DAILY 07/16/23 01/18/24 acetaminophen 500 mg tablet 1,000 mg PO Q4H PRN pain 12/08/23 01/18/24 doxycycline hyclate 100 mg capsule 100 mg PO BID 01/11/24 01/18/24 acarbose 50 mg tablet 50 mg PO .BIDAC 01/18/24 01/18/24 apixaban 5 mg tablet (Eliquis) 5 mg PO BID 01/18/24 01/18/24 aspirin 81 mg chewable tablet 81 mg PO .QHS 01/18/24 01/18/24 biotin 10,000 mcg capsule (Edd 10,000 mcg PO BID 01/18/24 01/18/24 Biotin) cilostazol 100 mg tablet 100 mg PO BID 01/18/24 01/18/24 ezetimibe 10 mg tablet 10 mg PO .QHS 01/18/24 01/18/24 famotidine 40 mg tablet 20 mg PO .QHS 01/18/24 01/18/24 ferrous sulfate 325 mg (65 mg 325 mg PO DAILY 01/18/24 01/18/24 iron) tablet (Feosol) honey 100 % topical paste 1 applic topical DAILY 01/18/24 01/18/24 (MediHoney (honey)) lidocaine 4 % topical patch 2 patch topical .QHS 01/18/24 01/18/24 (AsperFlex (lidocaine)) montelukast 10 mg tablet 10 mg PO DAILY 01/18/24 01/18/24 nystatin 100,000 unit/mL oral 5 ml PO TID 01/18/24 01/18/24 suspension tramadol 50 mg tablet 50 mg PO Q8H PRN pain 01/18/24 01/18/24 Allergies Allergy/AdvReac Type Severity Reaction Status Date / Time iodine AdvReac Severe Vomiting Verified 12/27/23 06:26 promethazine [From Phenergan] AdvReac Severe Hallucinati Verified 12/27/23 06:26 ng shellfish derived AdvReac Severe Vomiting Verified 12/27/23 06:26 codeine AdvReac Intermediate Vomiting Verified 12/27/23 06:26 Review of Systems ROS Narrative CONST: Denies diaphoresis, weakness MS: Denies arthralgias, myalgias SKIN:? +wound.? Denies swelling NEURO: Denies weakness, numbness, paresthesias PFSH PFSH Medical History Paroxysmal atrial fibrillation ?I48.0 - Paroxysmal atrial fibrillation (ICD-10) CAD (coronary artery disease) ?I25.10 - Atherosclerotic heart disease of [place] coronary artery without angina pectoris (ICD-10) Benign essential hypertension ?I10 - Essential (primary) hypertension (ICD-10) COPD (chronic obstructive pulmonary disease) ?J44.9 - Chronic obstructive pulmonary disease, unspecified (ICD-10) Peripheral artery disease ?I73.9 - Peripheral vascular disease, unspecified (ICD-10) Complaint of melena ?K92.1 - Melena (ICD-10) FH: CABG (coronary artery bypass surgery) ?Z82.49 - Family history of ischemic heart disease and other diseases of the circulatory system (ICD-10) Diabetes ?E11.9 - Type 2 diabetes mellitus without complications (ICD-10) Femoral-popliteal bypass graft occlusion, right ?T82.898A - Other specified complication of vascular prosthetic devices, implants and grafts, initial encounter (ICD-10) Femoral-popliteal bypass graft occlusion, left ?T82.898A - Other specified complication of vascular prosthetic devices, implants and grafts, initial encounter (ICD-10) Anemia requiring transfusions ?D64.9 - Anemia, unspecified (ICD-10) Clot ?I82.90 - Acute embolism and thrombosis of unspecified vein (ICD-10) Amputation above knee ?S78.119A - Complete traumatic amputation at level between unspecified hip and knee, initial encounter (ICD-10) Family History Father Family history of diabetes mellitus Social History Within the past year, how often did you have a drink containing alcohol: never Score interpretation: A score less than 4 is consistent with normal alcohol consumption. 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 No diaphoresis.?? HENT: normocephalic, atraumatic, CV: < 2 sec cap refill MS: + tenderness to the stump.? NEURO: Sensory intact throughout and distal to the injury SKIN: (+) Wound to the base of his left stump displays dehiscence. Patient has adipose tissue within the middle of it. No osseous prominence, visualization noted. [place] are present on one side of the wound or the other. No purulent drainage, appreciable erythema other than what 1 would expect with inflammatory response. PSYCHIATRIC: normal mood, affect Constitutional Vital Signs, click to edit/add: Last Vital Signs Temp 98.4 F 01/18/24 19:38 Pulse 115 H 01/18/24 19:38 Resp 20 01/18/24 19:38 BP 111/51 01/18/24 19:38 Pulse Ox 94 L 01/18/24 19:38 O2 Del Method Room Air 01/18/24 19:38 Course Reevaluation(s) Reevaluation #1: Discussed with and patient results, plan, and disposition. They are agreeable with plan. Time: 15:42 Consultations Consultation #1: Patient initially discussed with Dr. Hurd, vascular. Initial plan was for wound packing, dressing, follow-up with wound clinic. However, able to get a picture of the current wound to Dr. Hurd who feels that the wound needs debridement in the OR and recommends admission, NPO after midnight, antibiotics. Recommends that Dr. Wilhelm from [facility] be notified as he was the one that did the AKA surgery. Time: 14:00 Consultation #2: Patient discussed with JAZZMINE Crook at Dr. Renee's office who stated that they are okay with Dr. Ornelas treating the current wound and are available for consultation if needed. Time: 14:30 Consultation #3: Patient discussed with Dr. Bernardo who is agreeable with admission. Time: 15:39 Vital Signs Vital signs: Vital Signs Temperature 98.8 F 01/18/24 13:02 Pulse Rate 104 H 01/18/24 13:02 Respiratory Rate 18 01/18/24 13:02 Blood Pressure 143/62 H 01/18/24 13:02 Pulse Oximetry 99 01/18/24 13:02 Oxygen Delivery Method Room Air 01/18/24 13:02 Temperature 98.4 F 01/18/24 19:38 Pulse Rate 115 H 01/18/24 19:38 Respiratory Rate 20 01/18/24 19:38 Blood Pressure 111/51 01/18/24 19:38 Pulse Oximetry 94 L 01/18/24 19:38 Oxygen Delivery Method Room Air 01/18/24 19:38 MDM - Wound/Laceration MDM Narrative Medical decision making narrative: This is a pleasant 78-year-old male, 1 month history of left AKA, presents to the emergency department concerned by wound opening up. On arrival, afebrile, vital signs are stable. On exam, nontoxic, appearing patient in no distress. Patient has wound dehiscence noted to the stump of his left AKA. There is some adipose tissue noted, exposed. Mil[place] are in place on 1 side of the wound or the other. No purulent drainage, gross erythema, warmth. Srinivas not aiding in keeping wound closed were removed. See procedure note. Patient was discussed with his vascular doctor, Dr. Hurd who feels the patient needs wound debridement in the OR. Patient was discussed with JAZZMINE Crook at Dr. Renee's office who states that they are comfortable with Dr. Hurd caring for his wound and are available for consultation if needed. He was admitted under the hospitalist, n.p.o. after midnight. Patient given dose of Zosyn. See ED consultations above. Disposition ? The patient was admitted, observation status. Condition at time of disposition: stable Discussed with patient and family results, plan, and disposition.? PLEASE NOTE: Portions of the medical record may have been produced using electronic truck trailer final inspector and may contain errors with respect to translation of words which may not have been identified prior to finalization of the chart. Medical Records Attestation: I reviewed the patient's medical records. Lab Data Labs: Lab Results 01/18/24 Range/Units 13:14 WBC 3.9 L (4.0-11.0) 10^3/uL RBC 2.80 L (4.70-6.10) 10^6/uL Hgb 7.2 L (14.0-18.0) g/dL Hct 25.1 L (42.0-54.0) % MCV 89.6 (80.0-94.0) fL MCH 25.7 L (25.9-34.0) pg MCHC 28.7 L (29.9-35.2) g/dL RDW 17.7 H (11.0-15.0) % Plt Count 141 L (150-450) 10^3/uL MPV 13.1 (9.5-13.5) fL Neut % (Auto) 82.9 H (43.0-75.0) % Lymph % (Auto) 7.4 L (20.5-60.0) % Pershing % (Auto) 9.1 (1.7-12.0) % Eos % (Auto) 0.3 L (0.9-7.0) % Baso % (Auto) 0.0 L (0.2-2.0) % Neut # (Auto) 3.3 (1.4-6.5) 10^3/uL Lymph # (Auto) 0.3 L (1.2-3.8) 10^3/uL Pershing # (Auto) 0.4 (0.3-0.8) 10^3/uL Eos # (Auto) 0.0 (0.0-0.7) 10^3/uL Baso # (Auto) 0.0 (0.0-0.1) 10^3/uL Abs Immat Gran (auto) 0.01 (0.00-0.03) 10^3/uL Imm/Tot Granulo (auto) 0.3 (0.0-0.5) % Sodium 136 (136-145) mmol/L Potassium 3.2 L (3.5-5.1) mmol/L Chloride 101 (98-107) mmol/L Carbon Dioxide 27.2 (21.0-32.0) mmol/L Anion Gap 11.0 BUN 10.0 (7.0-18.0) mg/dL Creatinine 0.43 L (0.70-1.30) mg/dL Est GFR ( Amer) >60 (>=60) Est GFR (Non-Af Amer) >60 (>=60) BUN/Creatinine Ratio 23.3 Glucose 184 H (74-106) mg/dL Calcium 8.7 (8.5-10.1) mg/dL Discharge Plan Discharge Chief Complaint: Wound/Laceration Clinical Impression: Hx of AKA (above knee amputation) Qualifiers: Laterality: left Qualified Code(s): Z89.612 - Acquired absence of left leg above knee Dehiscence of operative wound Qualifiers: Encounter type: initial encounter Qualified Code(s): T81.31XA - Disruption of external operation (surgical) wound, not elsewhere classified, initial encounter Anemia Qualifiers: Anemia type: unspecified type Qualified Code(s): D64.9 - Anemia, unspecified Patient Disposition: Admitted as Observation Time of Disposition Decision: 14:33 Condition: Good Discharge Date/Time: 01/18/24 15:55 Procedures ED Suture Remove/Wound Recheck Suture Removal/Wound Recheck Suture removal/wound recheck: srinivas removed by /DO/GENARO (#8) Conclusion: patient tolerated procedure Documented by User: Tesfaye Causey MD 01/18/24 21:21 HPI - Wound/Laceration General Chief Complaint: Wound/Laceration Stated Complaint: LOWER EXTREMITY PAIN Time Seen by Provider: 01/18/24 13:10 Related Data Home Medications ?Medication ?Instructions ?Recorded ?Confirmed digoxin 125 mcg (0.125 mg) tablet 125 mcg PO DAILY 07/16/23 01/18/24 (Digox) vericiguat 10 mg tablet (Verquvo) 10 mg PO DAILY 07/16/23 01/18/24 acetaminophen 500 mg tablet 1,000 mg PO Q4H PRN pain 12/08/23 01/18/24 doxycycline hyclate 100 mg capsule 100 mg PO BID 01/11/24 01/18/24 acarbose 50 mg tablet 50 mg PO .BIDAC 01/18/24 01/18/24 apixaban 5 mg tablet (Eliquis) 5 mg PO BID 01/18/24 01/18/24 aspirin 81 mg chewable tablet 81 mg PO .QHS 01/18/24 01/18/24 biotin 10,000 mcg capsule (Edd 10,000 mcg PO BID 01/18/24 01/18/24 Biotin) cilostazol 100 mg tablet 100 mg PO BID 01/18/24 01/18/24 ezetimibe 10 mg tablet 10 mg PO .QHS 01/18/24 01/18/24 famotidine 40 mg tablet 20 mg PO .QHS 01/18/24 01/18/24 ferrous sulfate 325 mg (65 mg 325 mg PO DAILY 01/18/24 01/18/24 iron) tablet (Feosol) honey 100 % topical paste 1 applic topical DAILY 01/18/24 01/18/24 (MediHoney (honey)) lidocaine 4 % topical patch 2 patch topical .QHS 01/18/24 01/18/24 (AsperFlex (lidocaine)) montelukast 10 mg tablet 10 mg PO DAILY 01/18/24 01/18/24 nystatin 100,000 unit/mL oral 5 ml PO TID 01/18/24 01/18/24 suspension tramadol 50 mg tablet 50 mg PO Q8H PRN pain 01/18/24 01/18/24 Allergies Allergy/AdvReac Type Severity Reaction Status Date / Time iodine AdvReac Severe Vomiting Verified 12/27/23 06:26 promethazine [From Phenergan] AdvReac Severe Hallucinati Verified 12/27/23 06:26 ng shellfish derived AdvReac Severe Vomiting Verified 12/27/23 06:26 codeine AdvReac Intermediate Vomiting Verified 12/27/23 06:26 PFSH PFS Medical History Paroxysmal atrial fibrillation ?I48.0 - Paroxysmal atrial fibrillation (ICD-10) CAD (coronary artery disease) ?I25.10 - Atherosclerotic heart disease of [place] coronary artery without angina pectoris (ICD-10) Benign essential hypertension ?I10 - Essential (primary) hypertension (ICD-10) COPD (chronic obstructive pulmonary disease) ?J44.9 - Chronic obstructive pulmonary disease, unspecified (ICD-10) Peripheral artery disease ?I73.9 - Peripheral vascular disease, unspecified (ICD-10) Complaint of melena ?K92.1 - Melena (ICD-10) FH: CABG (coronary artery bypass surgery) ?Z82.49 - Family history of ischemic heart disease and other diseases of the circulatory system (ICD-10) Diabetes ?E11.9 - Type 2 diabetes mellitus without complications (ICD-10) Femoral-popliteal bypass graft occlusion, right ?T82.898A - Other specified complication of vascular prosthetic devices, implants and grafts, initial encounter (ICD-10) Femoral-popliteal bypass graft occlusion, left ?T82.898A - Other specified complication of vascular prosthetic devices, implants and grafts, initial encounter (ICD-10) Anemia requiring transfusions ?D64.9 - Anemia, unspecified (ICD-10) Clot ?I82.90 - Acute embolism and thrombosis of unspecified vein (ICD-10) Amputation above knee ?S78.119A - Complete traumatic amputation at level between unspecified hip and knee, initial encounter (ICD-10) Family History Father Family history of diabetes mellitus Social History Within the past year, how often did you have a drink containing alcohol: never Score interpretation: A score less than 4 is consistent with normal alcohol consumption. 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 Known occupational exposures/hazards: No Highest level of school completed/degree received: high school graduate Exam Constitutional Vital Signs, click to edit/add: Last Vital Signs Temp 98.4 F 04/10/24 19:38 Pulse 115 H 01/18/24 19:38 Resp 20 01/18/24 19:38 BP 111/51 01/18/24 19:38 Pulse Ox 94 L 01/18/24 19:38 O2 Del Method Room Air 01/18/24 19:38 Course Vital Signs Vital signs: Vital Signs Temperature 98.8 F 01/18/24 13:02 Pulse Rate 104 H 01/18/24 13:02 Respiratory Rate 18 01/18/24 13:02 Blood Pressure 143/62 H 01/18/24 13:02 Pulse Oximetry 99 01/18/24 13:02 Oxygen Delivery Method Room Air 01/18/24 13:02 Temperature 98.4 F 01/18/24 19:38 Pulse Rate 115 H 01/18/24 19:38 Respiratory Rate 20 01/18/24 19:38 Blood Pressure 111/51 01/18/24 19:38 Pulse Oximetry 94 L 01/18/24 19:38 Oxygen Delivery Method Room Air 01/18/24 19:38 MDM - Wound/Laceration MDM Narrative Medical decision making narrative: This is a pleasant 78-year-old male, 1 month history of left AKA, presents to the emergency department concerned by wound opening up. On arrival, afebrile, vital signs are stable. On exam, nontoxic, appearing patient in no distress. Patient has wound dehiscence noted to the stump of his left AKA. There is some adipose tissue noted, exposed. Mil[place] are in place on 1 side of the wound or the other. No purulent drainage, gross erythema, warmth. [place] not aiding in keeping wound closed were removed. See procedure note. Patient was discussed with his vascular doctor, Dr. Hurd who feels the patient needs wound debridement in the OR. Patient was discussed with JAZZMINE Crook at Dr. Renee's office who states that they are comfortable with Dr. Hurd caring for his wound and are available for consultation if needed. He was admitted under the hospitalist, n.p.o. after midnight. Patient given dose of Zosyn. See ED consultations above. Disposition ? The patient was admitted, observation status. Condition at time of disposition: stable Discussed with patient and family results, plan, and disposition.? PLEASE NOTE: Portions of the medical record may have been produced using electronic truck trailer final inspector and may contain errors with respect to translation of words which may not have been identified prior to finalization of the chart. I, Dr Causey, have reviewed the above progress note and course of action in the ER; agree with the above. I have personally seen and evaluated this patient, gone over history and physical, and discussed disposition and treatment plan with the patient. Multiple phone calls were made to vascular surgeon, a secondary vascular surgeon, hospitalist, speaking to family at bedside. Critical care time 35 minutes exclusive from separate billable procedures that were performed. The following was considered in the determination of critical care but not limited to the level of medical decision making, intensive cardiac and/or respiratory monitoring, frequent vital sign monitoring, evaluation of laboratory studies, evaluation of radiographic studies, oxygen monitoring, and constant monitoring and speaking to family at bedside Lab Data Labs: Lab Results 01/18/24 Range/Units 13:14 WBC 3.9 L (4.0-11.0) 10^3/uL RBC 2.80 L (4.70-6.10) 10^6/uL Hgb 7.2 L (14.0-18.0) g/dL Hct 25.1 L (42.0-54.0) % MCV 89.6 (80.0-94.0) fL MCH 25.7 L (25.9-34.0) pg MCHC 28.7 L (29.9-35.2) g/dL RDW 17.7 H (11.0-15.0) % Plt Count 141 L (150-450) 10^3/uL MPV 13.1 (9.5-13.5) fL Neut % (Auto) 82.9 H (43.0-75.0) % Lymph % (Auto) 7.4 L (20.5-60.0) % Pershing % (Auto) 9.1 (1.7-12.0) % Eos % (Auto) 0.3 L (0.9-7.0) % Baso % (Auto) 0.0 L (0.2-2.0) % Neut # (Auto) 3.3 (1.4-6.5) 10^3/uL Lymph # (Auto) 0.3 L (1.2-3.8) 10^3/uL Pershing # (Auto) 0.4 (0.3-0.8) 10^3/uL Eos # (Auto) 0.0 (0.0-0.7) 10^3/uL Baso # (Auto) 0.0 (0.0-0.1) 10^3/uL Abs Immat Gran (auto) 0.01 (0.00-0.03) 10^3/uL Imm/Tot Granulo (auto) 0.3 (0.0-0.5) % Sodium 136 (136-145) mmol/L Potassium 3.2 L (3.5-5.1) mmol/L Chloride 101 (98-107) mmol/L Carbon Dioxide 27.2 (21.0-32.0) mmol/L Anion Gap 11.0 BUN 10.0 (7.0-18.0) mg/dL Creatinine 0.43 L (0.70-1.30) mg/dL Est GFR ( Amer) >60 (>=60) Est GFR (Non-Af Amer) >60 (>=60) BUN/Creatinine Ratio 23.3 Glucose 184 H (74-106) mg/dL Calcium 8.7 (8.5-10.1) mg/dL Discharge Plan Discharge Chief Complaint: Wound/Laceration Clinical Impression: Hx of AKA (above knee amputation) Qualifiers: Laterality: left Qualified Code(s): Z89.612 - Acquired absence of left leg above knee Dehiscence of operative wound Qualifiers: Encounter type: initial encounter Qualified Code(s): T81.31XA - Disruption of external operation (surgical) wound, not elsewhere classified, initial encounter Anemia Qualifiers: Anemia type: unspecified type Qualified Code(s): D64.9 - Anemia, unspecified Patient Disposition: Admitted as Observation Time of Disposition Decision: 14:33 Condition: Good Discharge Date/Time: 01/18/24 15:55
[2024-01-18] MEDS: PIPERACILLIN SODIUM/TAZOBACTAM 3.375 GM in 0.9 % SODIUM CHLORIDE 50 ML IV ×2 (15:53→23:23)
[2024-01-18 15:56] LABS: Eosinophils Percent Auto 0.3 % (0.9-7.0); Hematocrit 25.1 % (42.0-54.0); Hemoglobin 7.2 g/dL (14.0-18.0); Immature Granulocytes Abs Auto 0.01 10^3/uL (0.00-0.03); Immature Granulocytes Pct Auto 0.3 % (0.0-0.5); Lymphocytes Absolute Auto 0.3 10^3/uL (1.2-3.8); Lymphocytes Percent Auto 7.4 % (20.5-60.0); Mean Corpuscular HGB Conc 28.7 g/dL (29.9-35.2); Mean Corpuscular Hemoglobin 25.7 pg (25.9-34.0); Mean Corpuscular Volume 89.6 fL (80.0-94.0); Mean Platelet Volume 13.1 fL (9.5-13.5); Monocytes Absolute Auto 0.4 10^3/uL (0.3-0.8); Monocytes Percent Auto 9.1 % (1.7-12.0); Neutrophils Absolute Auto 3.3 10^3/uL (1.4-6.5); Neutrophils Percent Auto 82.9 % (43.0-75.0); Platelet Count 141 10^3/uL (150-450); Red Cell Distribution Width 17.7 % (11.0-15.0); White Blood Count 3.9 10^3/uL (4.0-11.0)
[2024-01-18 16:03] LABS: BUN Creatinine Ratio 23.3; Calcium 8.7 mg/dL (8.5-10.1); Carbon Dioxide 27.2 mmol/L (21.0-32.0); Chloride 101 mmol/L (98-107); Estimated GFR (African America >60 (>=60); Estimated GFR (Non-African Ame >60 (>=60); Glucose 184 mg/dL (74-106); Potassium 3.2 mmol/L (3.5-5.1); Sodium 136 mmol/L (136-145)
--- NOTE | 2024-01-18 16:16 | PHOTOS ---
coccyc and buttock
[2024-01-18] MEDS: LACTATED RINGER'S SOLUTION 1,000 ML 80 ML IV (17:51)
[2024-01-18] MEDS: ACETAMINOPHEN 500 MG TABLET 1000 MG PO (19:31)
[2024-01-18] MEDS: EZETIMIBE 10 MG TABLET PO (21:32)
[2024-01-18] MEDS: FAMOTIDINE 20 MG TABLET PO (21:32)
[2024-01-18] MEDS: NYSTATIN 500,000 UNIT/5 ML ORAL.SUSP 500000 UNIT PO (21:32)
[2024-01-18] MEDS: CILOSTAZOL 100 MG TABLET PO (21:32)
[2024-01-18] MEDS: LIDOCAINE 5% PATCH 2 PATCH TOPICAL (21:32)
[2024-01-19] VITALS (24 sets, daily range): BP systolic 104–168; BP diastolic 16–78; PULSE 91–114; TEMP 36.4–36.9; O2SAT 92–97; BMI 37.1
[2024-01-19 05:02] LABS: Basophils Percent Auto 0.4 % (0.2-2.0); Eosinophils Percent Auto 0.4 % (0.9-7.0); Immature Granulocytes Abs Auto 0.02 10^3/uL (0.00-0.03); Immature Granulocytes Pct Auto 0.8 % (0.0-0.5); Lymphocytes Absolute Auto 0.3 10^3/uL (1.2-3.8); Lymphocytes Percent Auto 12.4 % (20.5-60.0); Mean Corpuscular HGB Conc 28.9 g/dL (29.9-35.2); Mean Corpuscular Hemoglobin 25.3 pg (25.9-34.0); Mean Corpuscular Volume 87.6 fL (80.0-94.0); Mean Platelet Volume 12.9 fL (9.5-13.5); Monocytes Absolute Auto 0.3 10^3/uL (0.3-0.8); Monocytes Percent Auto 11.7 % (1.7-12.0); Neutrophils Percent Auto 74.3 % (43.0-75.0); Platelet Count 107 10^3/uL (150-450); Red Blood Count 2.25 10^6/uL (4.70-6.10); Red Cell Distribution Width 17.7 % (11.0-15.0); White Blood Count 2.7 10^3/uL (4.0-11.0)
[2024-01-19 05:38] LABS: Alanine Aminotransferase 22 U/L (16-63); Albumin Globulin Ratio 0.3; Albumin Level 1.6 g/dL (3.4-5.0); Alkaline Phosphatase 75 U/L (46-116); Aspartate Amino Transferase 25 U/L (15-37); BUN Creatinine Ratio 21.4; Bilirubin Total 0.5 mg/dL (0.2-1.0); Calcium 8.3 mg/dL (8.5-10.1); Carbon Dioxide 26.2 mmol/L (21.0-32.0); Chloride 102 mmol/L (98-107); Estimated GFR (African America >60 (>=60); Estimated GFR (Non-African Ame >60 (>=60); Globulin 4.6 g/dL; Glucose 91 mg/dL (74-106); Potassium 3.2 mmol/L (3.5-5.1); Sodium 134 mmol/L (136-145); Total Protein 6.2 g/dL (6.4-8.2)
[2024-01-19 06:08] LABS: Hematocrit 19.7 % (42.0-54.0); Hemoglobin 5.7 g/dL (14.0-18.0)
[2024-01-19] MEDS: LACTATED RINGER'S SOLUTION 1,000 ML 80 ML IV ×2 (06:09→15:06)
[2024-01-19] MEDS: ACETAMINOPHEN 500 MG TABLET 1000 MG PO ×2 (08:18→15:05)
[2024-01-19] MEDS: DIPHENHYDRAMINE HCL 25 MG/10 ML ELIXIR PO (08:19)
[2024-01-19] MEDS: FUROSEMIDE 20 MG/2 ML VIAL IVP (10:06)
--- NOTE | 2024-01-19 10:09 | SWNOTE1 ---
Pt is from the [facility]. Pt and paid to hold bed at [place], plan is to return at discharge.
--- NOTE | 2024-01-19 10:57 | P.HP_ITS ---
<Statement entered by Jacob Bernardo MD - 01/19/24 11:53> Patient seen and examined, agree with assessment and plan below. Presented with wound dehiscence and will need surgical intervention. Chronic anemia and worsened overnight. Gave blood prior to OR. Monitor labs. Continue zosyn. Diagnosis: 1. Dehiscence of wound 2. Hx AKA 3. Anemia 4. PAD 5. DM2 6. HTN 7. Chronic GI bleed 8. COPD 9. Paroxysmal afib 10. 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 The SNF was unable to transport the patient to [place] to follow-up with his surgeon there emergently, and he was sent to the ED for further evaluation. Workup in the ED revealed profound anemia (5.7), thrombocytopenia (107), mild hypokalemia (3.2). There was no evidence of purulent drainage or active bleeding of the dehisced wound and only fatty tissue layer was visualized. The patient's case was discussed with Dr. Hurd, vascular surgeon, by the ED provider and he agrees to see the patient in consult and perform revision of this AKA incision later today. At the time of my exam the patient is resting comfortably in bed. He denies any significant pain, chest pain, shortness of breath, or any other acute complaint. He is receiving his second unit of packed red blood cells as ordered in the ED. Dr. Hurd wants his hemoglobin to be stabilized before he takes the patient to surgery. Nursing will inform Dr. Hurd of the patient's hemoglobin after his PRBCs are transfused. OR likely later this afternoon. The patient remains n.p.o. for surgery. 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.20 - Angiodysplasia of colon without hemorrhage (ICD-10) Chronic gastrointestinal bleeding ?K92.2 - Gastrointestinal hemorrhage, unspecified (ICD-10) COPD (chronic obstructive pulmonary disease) ?J44.9 - Chronic obstructive pulmonary disease, unspecified (ICD-10) CAD (coronary artery disease) ?I25.10 - Atherosclerotic heart disease of [place] coronary artery without angina pectoris (ICD-10) Paroxysmal atrial fibrillation ?I48.0 - Paroxysmal atrial fibrillation (ICD-10) Peripheral artery disease ?I73.9 - Peripheral vascular disease, unspecified (ICD-10) Benign essential hypertension ?I10 - Essential (primary) hypertension (ICD-10) Diabetes ?E11.9 - Type 2 diabetes mellitus without complications (ICD-10) Anemia requiring transfusions ?D64.9 - Anemia, unspecified (ICD-10) Infected hematoma ?T14.8XXA - Other injury of unspecified body region, initial encounter (ICD- 10) ?L08.9 - Local infection of the skin and subcutaneous tissue, unspecified (ICD-10) Anemia ?D64.9 - Anemia, unspecified (ICD-10) Epistaxis ?R04.0 - Epistaxis (ICD-10) Ingestion of nontoxic substance ?T65.91XA - Toxic effect of unspecified substance, accidental (unintentional), initial encounter (ICD-10) Infected surgical wound ?T81.49XA - Infection following a procedure, other surgical site, initial encounter (ICD-10) GI bleed ?K92.2 - Gastrointestinal hemorrhage, unspecified (ICD-10) Complaint of melena ?K92.1 - Melena (ICD-10) Femoral-popliteal bypass graft occlusion, right ?T82.898A - Other specified complication of vascular prosthetic devices, implants and grafts, initial encounter (ICD-10) Femoral-popliteal bypass graft occlusion, left ?T82.898A - Other specified complication of vascular prosthetic devices, implants and grafts, initial encounter (ICD-10) Clot ?I82.90 - Acute embolism and thrombosis of unspecified vein (ICD-10) Amputation above knee ?S78.119A - Complete traumatic amputation at level between unspecified hip and knee, initial encounter (ICD-10) Surgical History (Updated 01/19/24 @ 11:25 by Leeann Anne NP) History of colonoscopy ?Z98.890 - Other specified postprocedural states (ICD-10) History of endoscopy ?Z98.890 - Other specified postprocedural states (ICD-10) History of vasectomy ?Z98.52 - Vasectomy status (ICD-10) History of femoropopliteal bypass ?Z98.890 - Other specified postprocedural states (ICD-10) History of appendectomy ?Z90.49 - Acquired absence of other specified parts of digestive tract (ICD- 10) History of open heart surgery ?Z98.890 - Other specified postprocedural states (ICD-10) Hx of AKA (above knee amputation) ?Z89.619 - Acquired absence of unspecified leg above knee (ICD-10) Above knee amputation of right lower extremity ?S78.111A - 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, initial encounter (ICD-10) Above knee amputation of left lower extremity ?S78.112A - Complete traumatic amputation at level between left hip and knee, initial encounter (ICD-10) Family History Father Family history of diabetes mellitus Social History Within the past year, how often did you have a drink containing alcohol: never Score interpretation: A score less than 4 is consistent with normal alcohol consumption. 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 Known occupational exposures/hazards: No Highest level of school completed/degree received: high school graduate Meds Home Medications and Allergies Home Medications ?Medication ?Instructions ?Recorded ?Confirmed ?Type digoxin 125 mcg (0.125 mg) tablet 125 mcg PO DAILY 07/16/23 01/18/24 History (Digox) vericiguat 10 mg tablet (Verquvo) 10 mg PO DAILY 07/16/23 01/18/24 History acetaminophen 500 mg tablet 1,000 mg PO Q4H PRN pain 12/08/23 01/18/24 History doxycycline hyclate 100 mg capsule 100 mg PO BID 01/11/24 01/18/24 History acarbose 50 mg tablet 50 mg PO .BIDAC 01/18/24 01/18/24 History apixaban 5 mg tablet (Eliquis) 5 mg PO BID 01/18/24 01/18/24 History aspirin 81 mg chewable tablet 81 mg PO .QHS 01/18/24 01/18/24 History biotin 10,000 mcg capsule (Edd 10,000 mcg PO BID 01/18/24 01/18/24 History Biotin) cilostazol 100 mg tablet 100 mg PO BID 01/18/24 01/18/24 History ezetimibe 10 mg tablet 10 mg PO .QHS 01/18/24 01/18/24 History famotidine 40 mg tablet 20 mg PO .QHS 01/18/24 01/18/24 History ferrous sulfate 325 mg (65 mg 325 mg PO DAILY 01/18/24 01/18/24 History iron) tablet (Feosol) honey 100 % topical paste 1 applic topical DAILY 01/18/24 01/18/24 History (MediHoney (honey)) lidocaine 4 % topical patch 2 patch topical .QHS 01/18/24 01/18/24 History (AsperFlex (lidocaine)) montelukast 10 mg tablet 10 mg PO DAILY 01/18/24 01/18/24 History nystatin 100,000 unit/mL oral 5 ml PO TID 01/18/24 01/18/24 History suspension tramadol 50 mg tablet 50 mg PO Q8H PRN pain 01/18/24 01/18/24 History Allergies Allergy/AdvReac Type Severity Reaction Status Date / Time iodine AdvReac Severe Vomiting Verified 12/27/23 06:26 promethazine [From Phenergan] AdvReac Severe Hallucinati Verified 12/27/23 06:26 ng shellfish derived AdvReac Severe Vomiting Verified 12/27/23 06:26 codeine AdvReac Intermediate Vomiting Verified 12/27/23 06:26 Exam Constitutional Vital Signs, click to edit/add: Last Vital Signs Temp 98.0 F 01/19/24 10:24 Pulse 107 H 01/19/24 10:24 Resp 18 01/19/24 10:24 BP 168/70 H 01/19/24 10:24 Pulse Ox 96 01/19/24 10:24 O2 Del Method Room Air 01/19/24 10:24 Common normals: no apparent distress, alert and well nourished General appearance: cooperative Orientation/consciousness: Yes awake HENMD Common normals: normocephalic, head/scalp atraumatic, hearing grossly normal bilaterally, external nose normal and moist oral mucous membranes Eye Common normals: PERRL, EOMs intact bilaterally, conjunctivae normal and no scleral icterus Alignment: alignment normal Eyelid: eyelids normal Neck & C-Spine Common normals: full ROM, supple and no JVD Chest Common normals: inspection of chest normal Chest: symmetrical chest wall rise Respiratory Common normals: normal respiratory effort, no retractions, no use of accessory muscles and clear to auscultation bilaterally Effort & inspection: able to speak in complete sentences Cardio Common normals: no JVD, regular rate, regular rhythm, S1 normal heart sound, S2 normal heart sound, no gallops, no clicks, no murmurs, no rub and peripheral pulses 2+ throughout GI Common normals: Normal to inspection, nondistended, normoactive bowel sounds present, soft to palpation, non-tender, no hepatosplenomegaly, no masses and no bruits Bladder/kidney exam: bladder normal to palpation Back & Pelvis Common normals: thoracic and lumbar spine normal to inspection Extremity Common normals: normal capillary refill and no pedal edema General: normal exam except as noted; no clubbing and no cyanosis Right lower extremity: lower leg (AKA) Left lower extremity: lower leg (AKA. Dressing D&I, no bleeding) Neuro Hood Coma Scale: GCS not evaluated Common normals: CN's II-XII intact bilaterally, moves all extremities, no focal motor deficits and no sensory deficits noted Speech: speech normal Motor exam: strength 5/5 throughout Psych Common normals: mental status grossly normal, thought process normal, affect normal and activity/motor behavior normal Results Labs Labs: Short CBC 01/18/24 01/19/24 Range/Units 13:14 04:42 WBC 3.9 L 2.7 L (4.0-11.0) 10^3/uL Hgb 7.2 L 5.7 L* (14.0-18.0) g/dL Hct 25.1 L 19.7 L* (42.0-54.0) % Plt Count 141 L 107 L (150-450) 10^3/uL BMP 01/18/24 01/19/24 13:14 04:42 Sodium 136 134 L Potassium 3.2 L 3.2 L Chloride 101 102 Carbon Dioxide 27.2 26.2 BUN 10.0 9.0 Creatinine 0.43 L 0.42 L Glucose 184 H 91 Calcium 8.7 8.3 L Liver Function 01/19/24 Range/Units 04:42 Total Bilirubin 0.5 (0.2-1.0) mg/dL AST 25 (15-37) U/L ALT 22 (16-63) U/L Alkaline Phosphatase 75 (46-116) U/L Albumin 1.6 L (3.4-5.0) g/dL Pulse Oximetry Attestation: I have reviewed the pertinent pulse oximetry results. Assessment and Plan Assessment and Plan (1) Dehiscence of operative wound: Assessment and Plan: Acute * Adm observation * L AKA surgical site - performed in [place] in December * Dr Hurd is the pt's vascular surgeon * C/S Dr Hurd - we appreciate his assistance with this pt's care * OR planned later today * NPO for surgery * LR @ 80ml/hr for hydration * Zosyn IVPB for possible infection of surgical site * No obvious purulence per ED documentation * Wound cultures obtained in the ED - pending * CBC, CMP daily Qualifiers: Encounter type: initial encounter Qualified Code(s): T81.31XA - Disruption of external operation (surgical) wound, not elsewhere classified, initial encounter (2) Acute on chronic anemia: Assessment and Plan: Acute * 2/2 chronic GIB * Hgb 5.7 in ED * 2 Un PRBCs ordered in the ED, 2nd unit still infusing * Improved to 7.2 on AM labs prior to completion of transfusions * No emergent work up indicated - defer to outpatient providers (3) Diabetes: Assessment and Plan: Chronic * Diet controlled at home (4) CAD (coronary artery disease): Assessment and Plan: Chronic * Hold home daily ASA for now pending surgery * Continue home statin * Not on BB or ACEi at baseline (5) COPD (chronic obstructive pulmonary disease): Assessment and Plan: Chronic * (6) Chronic gastrointestinal bleeding: Assessment and Plan: Chronic * 2/2 colonic telangiectasia per medical record * Requires intermittent PRBC transfusions at baseline * Defer to outpatient management (7) Paroxysmal atrial fibrillation: Assessment and Plan: Chronic * Home Eliquis on hold pending OR today * Resume when OK w/ vascular surgery * Continue home digoxin for rate control (8) Peripheral artery disease: Assessment and Plan: Chronic * Continue home cilostazol and Verquvo Urinary Catheter Management Urinary Catheter Management Urethral: Cath placed during this visit: no Urethral indwelling: Yes Reason for continuing: surgical procedure
--- NOTE | 2024-01-19 11:23 | CM.NOTE ---
Rounds made with Dr. Bernardo. Labs reviewed by Dr. Bernardo with [facility]. Plan for surgery later today after PRBCs infused. Verbalizes understanding.
--- NOTE | 2024-01-19 12:09 | PM.GSHP ---
History of Present Illness History of Present Illness Chief complaint: Wound dehiscence left stump Narrative: 78 Male with sever arterial occlusive disease, had L AKA in another facility an developed AKA stump dehiscence. He is here for revision. 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 - Angiodysplasia of colon without hemorrhage (ICD-10) Chronic gastrointestinal bleeding ?K92.2 - Gastrointestinal hemorrhage, unspecified (ICD-10) COPD (chronic obstructive pulmonary disease) ?J44.9 - Chronic obstructive pulmonary disease, unspecified (ICD-10) CAD (coronary artery disease) ?I25.10 - Atherosclerotic heart disease of [place] coronary artery without angina pectoris (ICD-10) Paroxysmal atrial fibrillation ?I48.0 - Paroxysmal atrial fibrillation (ICD-10) Peripheral artery disease ?I73.9 - Peripheral vascular disease, unspecified (ICD-10) Benign essential hypertension ?I10 - Essential (primary) hypertension (ICD-10) Diabetes ?E11.9 - Type 2 diabetes mellitus without complications (ICD-10) Anemia requiring transfusions ?D64.9 - Anemia, unspecified (ICD-10) Infected hematoma ?T14.8XXA - Other injury of unspecified body region, initial encounter (ICD-10) ?L08.9 - Local infection of the skin and subcutaneous tissue, unspecified (ICD-10) Anemia ?D64.9 - Anemia, unspecified (ICD-10) Epistaxis ?R04.0 - Epistaxis (ICD-10) Ingestion of nontoxic substance ?T65.91XA - Toxic effect of unspecified substance, accidental (unintentional), initial encounter (ICD-10) Infected surgical wound ?T81.49XA - Infection following a procedure, other surgical site, initial encounter (ICD-10) GI bleed ?K92.2 - Gastrointestinal hemorrhage, unspecified (ICD-10) Complaint of melena ?K92.1 - Melena (ICD-10) Femoral-popliteal bypass graft occlusion, right ?T82.898A - Other specified complication of vascular prosthetic devices, implants and grafts, initial encounter (ICD-10) Femoral-popliteal bypass graft occlusion, left ?T82.898A - Other specified complication of vascular prosthetic devices, implants and grafts, initial encounter (ICD-10) Clot ?I82.90 - Acute embolism and thrombosis of unspecified vein (ICD-10) Amputation above knee ?S78.119A - Complete traumatic amputation at level between unspecified hip and knee, initial encounter (ICD-10) Surgical History (Updated 01/19/24 @ 11:25 by Leeann Anne NP) History of colonoscopy ?Z98.890 - Other specified postprocedural states (ICD-10) History of endoscopy ?Z98.890 - Other specified postprocedural states (ICD-10) History of vasectomy ?Z98.52 - Vasectomy status (ICD-10) History of femoropopliteal bypass ?Z98.890 - Other specified postprocedural states (ICD-10) History of appendectomy ?Z90.49 - Acquired absence of other specified parts of digestive tract (ICD-10) History of open heart surgery ?Z98.890 - Other specified postprocedural states (ICD-10) Hx of AKA (above knee amputation) ?Z89.619 - Acquired absence of unspecified leg above knee (ICD-10) Above knee amputation of right lower extremity ?S78.111A - 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, initial encounter (ICD-10) Above knee amputation of left lower extremity ?S78.112A - Complete traumatic amputation at level between left hip and knee, initial encounter (ICD-10) Family History Father Family history of diabetes mellitus Social History Within the past year, how often did you have a drink containing alcohol: never Score interpretation: A score less than 4 is consistent with normal alcohol consumption. 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 Known occupational exposures/hazards: No Highest level of school completed/degree received: high school graduate Meds Home Medications and Allergies Home Medications ?Medication ?Instructions ?Recorded ?Confirmed ?Type digoxin 125 mcg (0.125 mg) tablet 125 mcg PO DAILY 07/16/23 01/18/24 History (Digox) vericiguat 10 mg tablet (Verquvo) 10 mg PO DAILY 07/16/23 01/18/24 History acetaminophen 500 mg tablet 1,000 mg PO Q4H PRN pain 12/08/23 01/18/24 History doxycycline hyclate 100 mg capsule 100 mg PO BID 01/11/24 01/18/24 History acarbose 50 mg tablet 50 mg PO .BIDAC 01/18/24 01/18/24 History apixaban 5 mg tablet (Eliquis) 5 mg PO BID 01/18/24 01/18/24 History aspirin 81 mg chewable tablet 81 mg PO .QHS 01/18/24 01/18/24 History biotin 10,000 mcg capsule (Edd 10,000 mcg PO BID 01/18/24 01/18/24 History Biotin) cilostazol 100 mg tablet 100 mg PO BID 01/18/24 01/18/24 History ezetimibe 10 mg tablet 10 mg PO .QHS 01/18/24 01/18/24 History famotidine 40 mg tablet 20 mg PO .QHS 01/18/24 01/18/24 History ferrous sulfate 325 mg (65 mg 325 mg PO DAILY 01/18/24 01/18/24 History iron) tablet (Feosol) honey 100 % topical paste 1 applic topical DAILY 01/18/24 01/18/24 History (MediHoney (honey)) lidocaine 4 % topical patch 2 patch topical .QHS 01/18/24 01/18/24 History (AsperFlex (lidocaine)) montelukast 10 mg tablet 10 mg PO DAILY 01/18/24 01/18/24 History nystatin 100,000 unit/mL oral 5 ml PO TID 01/18/24 01/18/24 History suspension tramadol 50 mg tablet 50 mg PO Q8H PRN pain 01/18/24 01/18/24 History Allergies Allergy/AdvReac Type Severity Reaction Status Date / Time iodine AdvReac Severe Vomiting Verified 12/27/23 06:26 promethazine [From Phenergan] AdvReac Severe Hallucinati Verified 12/27/23 06:26 ng shellfish derived AdvReac Severe Vomiting Verified 12/27/23 06:26 codeine AdvReac Intermediate Vomiting Verified 12/27/23 06:26 Exam Narrative Exam Narrative: AAOx 3 NAD L AKA stump open with ischemic changes Chest CTA b/l ABd soft NT ND Constitutional Vital Signs, click to edit/add: Last Vital Signs Temp 98.0 F 01/19/24 10:24 Pulse 107 H 01/19/24 10:24 Resp 18 01/19/24 10:24 BP 168/70 H 01/19/24 10:24 Pulse Ox 96 01/19/24 10:24 O2 Del Method Room Air 01/19/24 10:24 Assessment and Plan Assessment and Plan (1) Dehiscence of operative wound: Assessment and Plan: Lul[place] BRIDGES revision Qualifiers: Encounter type: initial encounter Qualified Code(s): T81.31XA - Disruption of external operation (surgical) wound, not elsewhere classified, initial encounter (2) Acute on chronic anemia: (3) Diabetes: (4) CAD (coronary artery disease): (5) COPD (chronic obstructive pulmonary disease): (6) Chronic gastrointestinal bleeding: (7) Paroxysmal atrial fibrillation: (8) Peripheral artery disease: Urinary Catheter Management Urinary Catheter Management Urethral: Cath placed during this visit: yes Urethral indwelling: Yes Reason for continuing: measure accurate output Insertion date: 01/19/24 Insertion time: 11:00
--- NOTE | 2024-01-19 13:23 | SWNOTE1 ---
ELOY spoke with Melodie in PACU and she voiced pt's would like pt to return to [facility] today if he is stable so she does not have to pay to hold the bed. She voiced Dr. Hurd has already voiced this would be alright as long as everything goes well. SW to find out from [facility] if she is paying to hold the bed and to speak with . ELOY spoke to Linda at [facility] and pt's has paid to hod the bed. SW spoke to pt's and she stated she paid to hold the bed last night but not for today. She stated it is expensive and she would like him to get back today if possible. She stated Dr. Hurd was alright with it as well as long as it went well. ELOY reached out to Dr. Bernardo and he voiced it pt is stable after surgery then he can go, SW let Nurse Practitioner know as well. SW spoke with nursing and updated her as well. SW let nursing know to contact SW when pt is stable and we will get him set up for discharge. ELOY let Linda at [facility] know as well.
[2024-01-19] MEDS: PIPERACILLIN SODIUM/TAZOBACTAM 3.375 GM in 0.9 % SODIUM CHLORIDE 50 ML IV (13:27)
[2024-01-19] MEDS: HYDROMORPHONE HCL 0.5 MG/0.5 ML SYRINGE IV ×2 (13:56→14:03)
--- NOTE | 2024-01-19 14:03 | SWNOTE1 ---
Medicare Outpatient Observation Notice reviewed and discussed with patient's . Pt's verbalized understanding and signed the form. Original placed in pt's room and copy placed in patient?s chart.
--- NOTE | 2024-01-19 14:17 | PC.NURSE ---
States that surgical site, left stump starting to hurt; getting ahold of anesthesia for orders
--- NOTE | 2024-01-19 14:19 | PC.NURSE ---
sitting up for comfort
--- NOTE | 2024-01-19 14:20 | PC.NURSE ---
Medicated as ordered for pain with Dilaudid IV
--- NOTE | 2024-01-19 14:27 | PC.NURSE ---
MEDICATED WITH DILAUDID ORDERED
[2024-01-19] MEDS: TRAMADOL HCL 50 MG TABLET PO (15:05)
[2024-01-19] MEDS: NYSTATIN 500,000 UNIT/5 ML ORAL.SUSP 500000 UNIT PO (15:05)
[2024-01-19] MEDS: POTASSIUM CHLORIDE 10 MEQ ER TABLET 40 MEQ PO (15:05)
--- NOTE | 2024-01-19 15:15 | PM.GSPRC ---
Indications for Procedure: Left above-knee stump wound dehiscence Pre-op diagnosis: Left above-knee amputation stump wound dehiscence Post-op diagnosis: same as pre-op Procedure: Left above-knee amputation revision with excision of skin subcutaneous muscle fascia and bone and primary closure Findings: The wound was open with yue and dehiscence and tracks down to bone Anesthesia: CELIA Surgeon: Erwin Hurd Procedure Summary: The patient was taken back to the operating room and placed in the supine position. Appropriate cardiopulmonary margins were set. General anesthesia was induced. The left leg was prepped and draped in usual sterile surgical fashion. Patient received antibiotics. After timeout and safety pause 15 blade was used to cut skin subcutaneous tissue fascia and muscle down to bone. The patient had reasonable blood flow. The bone was then cut about 5 to 7 cm extra. Hemostasis was achieved. The fascia was closed using interrupted 2-0 Vicryl. The skin was closed using 2-0 Prolene vertical mattress. Dressing was placed and the patient tolerated the procedure very well. Estimated blood loss (mL): 10 Complications: No Pathology: other Condition: stable Disposition: PACU
[2024-01-19 15:20] LABS: Basophils Percent Auto 0.3 % (0.2-2.0); Eosinophils Percent Auto 0.3 % (0.9-7.0); Hematocrit 27.3 % (42.0-54.0); Hemoglobin 8.4 g/dL (14.0-18.0); Immature Granulocytes Abs Auto 0.02 10^3/uL (0.00-0.03); Immature Granulocytes Pct Auto 0.5 % (0.0-0.5); Lymphocytes Absolute Auto 0.4 10^3/uL (1.2-3.8); Mean Corpuscular HGB Conc 30.8 g/dL (29.9-35.2); Mean Corpuscular Hemoglobin 26.2 pg (25.9-34.0); Mean Platelet Volume 11.9 fL (9.5-13.5); Monocytes Absolute Auto 0.5 10^3/uL (0.3-0.8); Monocytes Percent Auto 12.5 % (1.7-12.0); Neutrophils Percent Auto 76.4 % (43.0-75.0); Platelet Count 141 10^3/uL (150-450); Red Blood Count 3.21 10^6/uL (4.70-6.10); White Blood Count 3.9 10^3/uL (4.0-11.0)
--- NOTE | 2024-01-19 16:02 | SWNOTE1 ---
SW put packet together and took to med/surge floor in case pt can be discharged back to [facility] today.
--- OUTSIDE RECORDS SUMMARY | 2024-01-20 07:57 | XMS_ITS | CCD ---
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 Sewer Name Role Phone GIAN HORTA Primary Care [...] Consulting Unavailable Blank, Chong S Consulting Unavailable Picher, Andrea Consulting Unavailable Picher, Andrea Consulting Unavailable Picher, Andrea Consulting Unavailable Picher, Andrea Consulting Unavailable Picher, Andrea Consulting Unavailable Picher, Andrea Consulting Unavailable Picher, Andrea Consulting Unavailable Picher, Andrea Consulting Unavailable Picher, Andrea Consulting Unavailable FIDELINAYER, ANAIS A Referring [...] Unavailable GIAN HORTA JR Primary Care Unavailable KAMLYLA, ANAIS A Referring Unavailable RULA DAWSON, GIAN Chino Primary Care Unavailable Rula Jr., Gian ARANDA Primary Care Provider TANJA NUGENT Attending Unavailable NAZZAL, ANJELICA Attending Unavailable ENANGELES ABDALLA Attending Unavailable VICKEY, ERWIN Attending Unavailable VICKEY, MOHAMED Admitting Unavailable YASIR NICHOLAS Referring Unavailable RODYJOHNATHAN LOYA Attending Unavailable GANGWANI, MONA MANE Consulting Unavailab le EDUARDO, EVELYN Admitting Unavailable AIYEWUNMIJIMMY Attending Unavailable NAZZAL, ALEXANDRIER Attending Unavailable NAZZAL, MUNIER Admitting Unavailable VICKEY, ERWIN Attending Unavailable JONNY, LEXUS Referring Unavailable GANGWANI, MONA MANE Referring Unavailab le VICKEY, ERWIN Attending Unavailable TOFLINSKIREBECCA Referring Unavailable HER, LINUS Referring Unavailable VICKEY, ERWIN Referring Unavailable NUGENT, TANJA Attending Unavailable RAFFI, TANJA Attending Unavailable PERSALINA MEZA Attending Unavailable NAZZAL, ANJELICA Attending Unavailable NAZZAL, MUNIER Admitting Unavailable NAZZAL, ALEXANDRIER Referring Unavailable NAZZAL, ANJELICA Referring Unavailable NUGENT, TANJA Referring Unavailable VICKEY, ERWIN Attending Unavailable VICKEY, MOHAMED Admitting Unavailable JÚNIOR ANDUJAR Referring Unavailable KAMMEYER, ANAIS Consulting Unavailable VICKEY, ERWIN Attending Unavailable VICKEY, MOHAMED Admitting Unavailable ROSSANA MIRZA Referring Unavailable NUGENT, TANJA Attending Unavailable VICKEY, ERWIN Attending Unavailable TANJA NUGENT Referring Unavailable CLELIANA BROWN Referring Unavailable LAEJANDRO, JUHI Referring Unavailable GANGWANI, MONA MANE Referring Unavailab le GANGWANI, MONA MANE Referring Unavailab le KOBEIDESTINY MALDONADO Attending Unavailable JAVIER GARCIA Attending Unavailable Allergies Allergy Classification Reported Allergen(s) Allergy Type Date of Onset Reaction(s) Facility (5 sources) Codeine; Translations: [codeine] Drug Allergy 08-20-20 09 [facility] (6 sources) Iodine; Translations: [iodine] Drug Allergy 08-20-20 Unknown [facility] (3 sources) Levamisole; Translations: [Phenergan] Drug Allergy 04-03-20 21 [facility] (4 sources) Shellfish; Translations: [shellfish] Drug allergy (disorder) 08-20-20 Vomiting (disorder) [facility] (20 sources) Codeine; Translations: [codeine] Drug Allergy 10-07-20 Vomitus (substance), Vomiting [facility] (18 sources) Iodine; Translations: [iodine] Drug Allergy 09-30-20 Vomitus (substance), Vomiting [facility] (20 sources) Promethazine; Translations: [promethazine] Drug Allergy 10-07-20 Vomitus (substance), Vomiting [facility] (1 source) Iodine and Iodide Containing Products Drug allergy (disorder) [facility] Repository (6 sources) Shellfish; Translations: [shellfish] Drug allergy 10-07-20 Vomiting (disorder), Vomiting [facility] (4 sources) DAPTOmycin; Translations: [DAPTOMYCIN] Drug Allergy [...] to adverse reactions to drug (disorder) 10-07-20 [facility] Medications Current Medications Medication Drug [...] mouth in the evening. 0 Active Biotin 72000 MCG as directed Orally bid Active carvedilol 3.125 mg oral tablet (10 sources) alpha-Adrenergic Zuleima, beta-Adrenergic Zuleima Start: 11-26-2022 take 1 tablet by mouth twice daily carvedilol 3.125 mg Tab take 1 tablet by mouth twice a day Start Date: 11/26/22 Status: Ordered Zyrtec (10 sources) Histamine-1 Receptor Antagonist Start: 02-17-2023 Zyrtec Refills(s) 0 Start Date: 11/26/22 Status: [...] 11/26/22 Status: Ordered take 2 tablets by mo ut in the morning cholecalciferol, vitamin D3, 10 mcg (400 unit) capsule Take 2 tablets by mouth in the morning. 0 Active take 1 capsule by mo uth every twenty-four hours Vitamin D3 1000 UNIT [...] 2 cap(s), Refills(s) 0, [facility]: [id number], 168, cm, 01/06/23 11:42:00 EDT, Height/Length Dosing, [...] daily Start Date: 11/26/22 Status: Ordered nystatin 469758 unt/ml oral suspension (2 sources) Polyene Antifungal [...] study, # 3 tab(s), Refills(s) 0, [id number], 168, cm, 01/06/23 11:42:00 EDT, Height/Length Dos... Start Date: 02/10/23 Status: Ordered QUEtiapine 25 mg oral tablet (2 sources) Atypical Antipsychotic Start: 03-10-2023 take 1 tablet by mouth at bedtime SEROquel 25 mg Tab 25 mg = 1 tab(s), Oral, Bedtime, Refills(s) 0 Start Date: 03/10/23 Status: Ordered rosuvastatin calcium 40 mg oral tablet (16 sources) HMG-CoA Reductase Inhibitor Start: 11-26-2022 take 1 tablet by mouth once daily rosuvastatin 40 mg Tab 40 mg = 1 tab(s), Oral, Daily, Refills(s) 0, High cholesterol Start Date: 04/08/23 Status: Ordered sennosides, chcf 8.6 mg oral tablet (2 sources) Start: [...] day(s), # 180 tab(s), Refills(s) 3, [facility][id number], 168, cm, 05/09/23 9:37:00 EDT, Height/Length Dosing, 51.5, kg, 04/08/23 8:25:00 EDT, Weight Dosing Start Date: 05/09/23 Stop Date: 05/03/24 Status: Ordered Start: 02-10-2023 End: 03-12-2023 take 1 tablet by mouth twice daily cilostazol 100 mg Tab 100 mg = 1 tab(s), Oral, BID, X 30 day(s), # 60 tab(s), Refills(s) 0, [facility]: [facility] #[id number], 168, cm, 01/06/23 11:42:00 EDT, Height/Length Dosing, [...] (2 sources) Start: 03-10-2023 oxymetazoline Nasal 0.05% [place] 2 spray(s), Nasal, BID Other (see comment), [...] PROSTH DEV GRAFT INIT] Onset: 3 Chronic Complications of surgical procedures or medical care [...] 3 Chronic Gangrene (2 sources) Atherosclerosis of [place] arteries of extremities with gangrene, left leg; Translations: [Atherosclerosis of [place] arteries of extremities with gangrene, left leg] [...] and knee, initial encounter] Onset: 4 Chronic Other aftercare (4 sources) Follow-up status; Translations: [Encounter for follow-up examination after completed treatment for conditions other than malignant neoplasm] Onset: 3 Episodic Other aftercare (1 source) Surgical follow-up; Translations: [Encounter for other specified surgical aftercare] Onset: 3 Episodic Other aftercare (3 sources) halfway (current) use of anticoagulants; Translations: [CORRECTION CURRNT USE ANTICOAGULANTS] Onset: 3 Episodic Other aftercare (1 source) halfway (current) use of aspirin; Translations: [CORRECTION CURRENT USE OF ASPIRIN] Onset: 3 Episodic Other aftercare (1 source) terminal carman (current) use of antithrombotics/antipl atelets; Translations: [HOSPITAL DIRECTOR ANTITHROMBOT/ANTIPLATL ETS] Onset: 3 Episodic Other aftercare (1 source) 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) drug therapy; Translations: [OTH CORRECTION CURRENT DRUG THERAPY] Onset: 3 Episodic Other aftercare (1 source) halfway (current) use of oral hypoglycemic drugs; Translations: [HOSPITAL DIRECTOR USE ORAL HYPOGLYCEMIC DX] Onset: 3 Episodic [...] Peripheral vascular disease, unspecified; Translations: [Atherosclerosis of [place] arteries of extremities with rest pain, left [...] Hospital Follow-up; Translations: [Hospital Follow-up] Onset: 4 Past or Other Problems Problem Classification Problem Date Documented Da te Episodic/Chronic Abdominal pain (2 sources) Abdominal pain Onset: 09-18-2023 Episodic Complication of device; implant or graft (6 sources) 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, initial encounter; Translations: [Infection and inflammatory reaction due to other cardiac and vascular devices, implants and grafts, initial encounter] Onset: 09-18-2023 Episodic Open wounds of extremities (2 sources) Unspecified open wound of unspecified toe(s) with damage to nail, initial encounter; Translations: [Unspecified open wound of unspecified toe(s) with damage to nail, initial encounter] Onset: 10-05-2023 Episodic Other aftercare (2 sources) Encounter for [...] SOFT TISSUE DISORDERS] Onset: 11-03-2022 Episodic Other connective tissue disease (2 sources) Other muscle spasm; Translations: [Other muscle spasm] Onset: 10-05-2023 Episodic Other injuries and conditions due to [...] Name Value Interpretation Reference Range Facility Follow-Upon 01-04-2024 Follow-Up [facility] Orders Onlyon 01-04-2024 Orders Only [facility] 30on 12-24-2023 30 [facility] BASIC METABOLIC PANELon 12-08 Anion gap [Moles/Vol] 13 mmol/L Normal 7-20 [facility] Comment on above: Performed By: #### L [id number] ####[facility] (BEAKER)[address] [place] [address] Calcium [Mass/Vol] 8.3 mg/dL Low 8.6-10.3 [facility] Comment on above: Performed By: #### L [id number] ####[facility] (BEAKER)[address] [place] [address] Chloride [Moles/Vol] 97 mmol/L Low 98-[address] [facility] Comment on above: Performed By: #### L [id number] ####[facility] ([facility])[address] [place] [address] CO2 [Moles/Vol] 22 mmol/L Normal 21-31 [facility] Comment on above: Performed By: #### L [id number] ####[facility] ([facility])[address] [place] [address] Creatinine [Mass/Vol] 0.44 mg/dL Low 0.70-1.30 [facility] Comment on above: Performed By: #### L [id number] ####[facility] ([facility])[address] [place] [address] GLOMERULAR FILTRATION RATE ML/MIN/1.73 SQ M.PREDICTED 109.2 mL/min/1.73m*2 Normal >60.0 [facility] Comment on above: Result Comment: [facility]???s estimated glomerular filtration rate (eGFR) will [...] of individuals. Performed By: #### L [id number] ####[facility] ([facility])[address] [place] [address] Glucose [Mass/Vol] 112 mg/dL High 70-100 [facility] Comment on above: Performed By: #### L [id number] ####[facility] ([facility])[address] [place] [address] Potassium [Moles/Vol] 3.8 mmol/L Normal 3.5-5.1 [facility] Comment on above: Performed By: #### L [id number] ####[facility] (BEAKER)[address] [place] [address] Sodium [Moles/Vol] 128 mmol/L Low 136-145 [facility] Comment on above: Performed By: #### L [id number] ####[facility] (BEAKER)[address] [place] [address] Urea nitrogen [Mass/Vol] 16 mg/dL Normal 7-25 [facility] Comment on above: Performed By: #### L [id number] ####[facility] (BEAKER)[address] [place] [address] UREA NITROGEN/CREATININE (MASS RATIO) IN SER/PLAS 36.4 Normal [facility] Comment on above: Performed By: #### L [id number] ####[facility] (BEAKER)[address] [place] [address] CBCon 12-24-2023 Erythrocyte distribution width (RBC) [Ratio] 18.3 % High 11.5-15.0 [facility] Comment on above: Performed By: #### L [id number] ####[facility] (BEAKER)[address] [place], [place] [address] ERYTHROCYTE MEAN CORPUSCULAR HEMOGLOBIN CONCENTRATION (G/DL) BY AUTOMATED 30.9 g/dL Low 32.0-35.0 [facility] Comment on above: Performed By: #### L [id number] ####[facility] (BEAKER)[address] [place] [address] Hematocrit (Bld) [Volume fraction] 24.9 % Low 39.0-55.0 [facility] Comment on above: Performed By: #### L [id number] ####[facility] (BEAKER)[address] [place] [address] Hemoglobin (Bld) [Mass/Vol] 7.7 g/dL Low 13.0-17.0 [facility] Comment on above: Performed By: #### L [id number] ####[facility] (BEAKER)[address] [place] [address] MCH (RBC) [Entitic mass] 27.1 pg Normal 27.0-33.0 [facility] Comment on above: Performed By: #### L [id number] ####[facility] ([facility])[address] [place] [address] MCV (RBC) [Entitic vol] 87.7 fL Normal 82.0-98.0 [facility] Comment on above: Performed By: #### L [id number] ####[facility] ([facility])[address] [place] [address] PLATELETS (10*3/UL) IN BLOOD AUTOMATED COUNT 172 10*3/uL Normal 150-400 [facility] Comment on above: Performed By: #### L [id number] ####[facility] ([facility])[address] [place] [address] RBC (Bld) [#/Vol] 2.84 10*6/uL Low 4.20-5.70 [facility] Comment on above: Performed By: #### L [id number] ####[facility] ([facility])[address] [place] [address] WBC (Bld) [#/Vol] 9.38 10*3/uL Normal 4.00-10.60 [facility] Comment on above: Performed By: #### L [id number] ####[facility] ([facility])[address] [place] [address] MAGNESIUMon 12-24-2023 Magnesium [Mass/Vol] 1.8 mg/dL Low 1.9-2.[address] [facility] Comment on above: Performed By: #### L [id number] ####[facility] ([facility])[address] [place] [address] NURSNOTEon 12-24-2023 NURSNOTE Called [facility] at [place]. Left phone number with person who answered. Said nurse would call me back. Normal [facility] PHOSPHORUSon 12-24-2023 Magnesium [Mass/Vol] 2.8 mg/dL Normal 2.5-5.[address] [facility] Comment on above: Performed By: #### L [id number] ####[facility] ([facility])[address] [place] [address] POCT GLUCOSE METER UNSOLICIT ED RESULTSon 12-24-2023 Glucose [Mass/Vol] 192 mg/dL High 70-105 [facility] Comment on above: Order Comment: Waive d Testing in the ED is performed under the ED CLIA certificate #[id number]. Result Comment: [email or web address] Performed By: #### L [id number] ####[facility] ([facility])[address] [place] [address] Glucose [Mass/Vol] 135 mg/dL High 70-105 [facility] Comment on above: Order Comment: Waive d Testing in the ED is performed under the ED CLIA certificate #[id number]. Result Comment: [email or web address] Performed By: #### L [id number] ####[facility] ([facility])[address] [place] [address] 30on 12-23-2023 30 Normal [facility] 30 [facility] BASIC METABOLIC PANELon 12-08 Anion gap [Moles/Vol] 14 mmol/L Normal 7-20 [facility] Comment on above: Performed By: #### L [id number] ####[facility] ([facility])[address] [place] [address] Calcium [Mass/Vol] 8.3 mg/dL Low 8.6-10.3 [facility] Comment on above: Performed By: #### L [id number] ####[facility] (BEAKER)[address] [place] [address] Chloride [Moles/Vol] 95 mmol/L Low 98-[address] [facility] Comment on above: Performed By: #### L [id number] ####[facility] ([facility])[address] [place] [address] CO2 [Moles/Vol] 23 mmol/L Normal 21-31 [facility] Comment on above: Performed By: #### L [id number] ####[facility] ([facility])[address] [place] [address] Creatinine [Mass/Vol] 0.45 mg/dL Low 0.70-1.30 [facility] Comment on above: Performed By: #### L [id number] ####[facility] ([facility])[address] [place] [address] GLOMERULAR FILTRATION RATE ML/MIN/1.73 SQ M.PREDICTED 108.4 mL/min/1.73m*2 Normal >60.0 [facility] Comment on above: Result Comment: [facility]???s estimated glomerular filtration rate (eGFR) will [...] of individuals. Performed By: #### L [id number] ####[facility] ([facility])[address] [place] [address] Glucose [Mass/Vol] 104 mg/dL High 70-100 [facility] Comment on above: Performed By: #### L [id number] ####[facility] ([facility])[address] [place] [address] Potassium [Moles/Vol] 3.7 mmol/L Normal 3.5-5.1 [facility] Comment on above: Performed By: #### L [id number] ####[facility] ([facility])[address] [place] [address] Sodium [Moles/Vol] 128 mmol/L Low 136-145 [facility] Comment on above: Performed By: #### L [id number] ####[facility] (BEAKER)[address] [place] [address] Urea nitrogen [Mass/Vol] 11 mg/dL Normal 7-25 [facility] Comment on above: Performed By: #### L [id number] ####[facility] ([facility])[address] [place] [address] UREA NITROGEN/CREATININE (MASS RATIO) IN SER/PLAS 24.4 Normal [facility] Comment on above: Performed By: #### L [id number] ####[facility] ([facility])[address] [place] [address] CBCon 12-23-2023 Erythrocyte distribution width (RBC) [Ratio] 18.4 % High 11.5-15.0 [facility] Comment on above: Performed By: #### L [id number] ####[facility] ([facility])[address] [place] [address] ERYTHROCYTE MEAN CORPUSCULAR HEMOGLOBIN CONCENTRATION (G/DL) BY AUTOMATED 30.1 g/dL Low 32.0-35.0 [facility] Comment on above: Performed By: #### L [id number] ####[facility] ([facility])[address] [place] [address] Hematocrit (Bld) [Volume fraction] 26.6 % Low 39.0-55.0 [facility] Comment on above: Performed By: #### L [id number] ####[facility] ([facility])[address] [place] [address] Hemoglobin (Bld) [Mass/Vol] 8.0 g/dL Low 13.0-17.0 [facility] Comment on above: Performed By: #### L [id number] ####[facility] ([facility])[address] [place] [address] MCH (RBC) [Entitic mass] 26.8 pg Low 27.0-33.0 [facility] Comment on above: Performed By: #### L [id number] ####[facility] ([facility])[address] [place] [address] MCV (RBC) [Entitic vol] 89.0 fL Normal 82.0-98.0 [facility] Comment on above: Performed By: #### L [id number] ####[facility] ([facility])[address] [place] [address] PLATELETS (10*3/UL) IN BLOOD AUTOMATED COUNT 196 10*3/uL Normal 150-400 [facility] Comment on above: Performed By: #### L [id number] ####[facility] ([facility])[address] [place] [address] RBC (Bld) [#/Vol] 2.99 10*6/uL Low 4.20-5.70 [facility] Comment on above: Performed By: #### L [id number] ####[facility] ([facility])[address] [place] [address] WBC (Bld) [#/Vol] 13.04 10*3/uL High 4.00-10.[address] [facility] Comment on above: Performed By: #### L [id number] ####[facility] ([facility])[address] [place] [address] DSon 12-23-2023 DS Normal [facility] MAGNESIUMon 12-23-2023 Magnesium [Mass/Vol] 1.9 mg/dL Normal 1.9-2.[address] [facility] Comment on above: Performed By: #### L [id number] ####[facility] ([facility])[address] [place] [address] PHOSPHORUSon 12-23-2023 Magnesium [Mass/Vol] 3.0 mg/dL Normal 2.5-5.[address] [facility] Comment on above: Performed By: #### L [id number] ####[facility] ([facility])[address] [place] [address] POCT GLUCOSE METER UNSOLICIT ED RESULTSon 12-23-2023 Glucose [Mass/Vol] 156 mg/dL High 70-105 [facility] Comment on above: Order Comment: Waive d Testing in the ED is performed under the ED CLIA certificate #[id number]. Result Comment: [email or web address] Performed By: #### L [id number] ####[facility] ([facility])[address] [place] [address] Glucose [Mass/Vol] 99 mg/dL Normal 70-105 [facility] Comment on above: Order Comment: Waive d Testing in the ED is performed under the ED CLIA certificate #[id number]. Result Comment: [email or web address] Performed By: #### L [id number] ####[facility] ([facility])[address] [place] [address] Glucose [Mass/Vol] 137 mg/dL High 70-105 [facility] Comment on above: Order Comment: Waive d Testing in the ED is performed under the ED CLIA certificate #[id number]. Result Comment: [email or web address] Performed By: #### L [id number] ####[facility] ([facility])[address] [place] [address] Glucose [Mass/Vol] 145 mg/dL High 70-105 [facility] Comment on above: Order Comment: Waive d Testing in the ED is performed under the ED CLIA certificate #[id number]. Result Comment: [email or web address] Performed By: #### L [id number] ####[facility] ([facility])[address] [place] [address] 30on 12-22-2023 30 Normal [facility] BASIC METABOLIC PANELon 12-08 Anion gap [Moles/Vol] 7 mmol/L Normal 7-20 [facility] Comment on above: Performed By: #### L [id number] ####[facility] ([facility])[address] [place] [address] Calcium [Mass/Vol] 8.4 mg/dL Low 8.6-10.3 [facility] Comment on above: Performed By: #### L [id number] ####[facility] ([facility])[address] [place] [address] Chloride [Moles/Vol] 102 mmol/L Normal 98-[address] [facility] Comment on above: Performed By: #### L [id number] ####[facility] ([facility])[address] [place] [address] CO2 [Moles/Vol] 27 mmol/L Normal 21-31 [facility] Comment on above: Performed By: #### L [id number] ####[facility] ([facility])[address] [place] [address] Creatinine [Mass/Vol] 0.39 mg/dL Low 0.70-1.30 [facility] Comment on above: Performed By: #### L [id number] ####[facility] ([facility])[address] [place] [address] GLOMERULAR FILTRATION RATE ML/MIN/1.73 SQ M.PREDICTED 113.2 mL/min/1.73m*2 Normal >60.0 [facility] Comment on above: Result Comment: [facility]???s estimated glomerular filtration rate (eGFR) will [...] of individuals. Performed By: #### L [id number] ####[facility] ([facility])[address] [place] [address] Glucose [Mass/Vol] 121 mg/dL High 70-100 [facility] Comment on above: Performed By: #### L [id number] ####[facility] ([facility])[address] [place] [address] Potassium [Moles/Vol] 4.0 mmol/L Normal 3.5-5.1 [facility] Comment on above: Performed By: #### L [id number] ####[facility] (BEAKER)[address] [place] [address] Sodium [Moles/Vol] 132 mmol/L Low 136-145 [facility] Comment on above: Performed By: #### L [id number] ####[facility] ([facility]ER)[address] [place] [address] Urea nitrogen [Mass/Vol] 11 mg/dL Normal 7-25 [facility] Comment on above: Performed By: #### L [id number] ####[facility] ([facility])[address] [address] UREA NITROGEN/CREATININE (MASS RATIO) IN SER/PLAS 28.2 Normal [facility] Comment on above: Performed By: #### L [id number] ####[facility] ([facility])[address] [address] CBCon 12-22-2023 Erythrocyte distribution width (RBC) [Ratio] 18.4 % High 11.5-15.0 [facility] Comment on above: Performed By: #### L [id number] ####[facility] ([facility])[address] [place] [address] ERYTHROCYTE MEAN CORPUSCULAR HEMOGLOBIN CONCENTRATION (G/DL) BY AUTOMATED 31.0 g/dL Low 32.0-35.0 [facility] Comment on above: Performed By: #### L [id number] ####[facility] ([facility])[address], [place] [address] Hematocrit (Bld) [Volume fraction] 24.2 % Low 39.0-55.0 [facility] Comment on above: Performed By: #### L [id number] ####[facility] (BEAKER)[address], [place] [address] Hemoglobin (Bld) [Mass/Vol] 7.5 g/dL Low 13.0-17.0 [facility] Comment on above: Performed By: #### L [id number] ####[facility] (BEAKER)[address], [place] [address] MCH (RBC) [Entitic mass] 27.6 pg Normal 27.0-33.0 [facility] Comment on above: Performed By: #### L [id number] ####[facility] ([facility])[address] [address] MCV (RBC) [Entitic vol] 89.0 fL Normal 82.0-98.0 [facility] Comment on above: Performed By: #### L [id number] ####[facility] ([facility])[address] [address] PLATELETS (10*3/UL) IN BLOOD AUTOMATED COUNT 154 10*3/uL Normal 150-400 [facility] Comment on above: Performed By: #### L [id number] ####[facility] ([facility])[address] [address] RBC (Bld) [#/Vol] 2.72 10*6/uL Low 4.20-5.70 [facility] Comment on above: Performed By: #### L [id number] ####[facility] ([facility])[address] [place] [address] WBC (Bld) [#/Vol] 7.36 10*3/uL Normal 4.00-10.60 [facility] Comment on above: Performed By: #### L [id number] ####[facility] ([facility])[address] [address] CONSULTon 12-22-2023 CONSULT Normal [facility] HEMOGLOBIN A1Con 12-22-2023 Glucose [Mass/Vol] 105 mg/dL Normal [facility] Comment on above: Performed By: #### L [id number] ####[facility] ([facility])[address] [place] [address] HbA1c (Bld) [Mass fraction] 5.3 % Normal 4.0-6.0 [facility] Comment on above: Performed By: #### L [id number] ####[facility] ([facility])[address] [place] [address] LACTIC ACID WITH 4 HOUR REFL EXon 12-22-2023 LACTATE (MMOL/L) IN SER/PLAS 0.8 mmol/L Normal 0.5-2.2 [facility] Comment on above: Performed By: #### L [id number] ####[facility] ([facility])[address] [place] [address] MAGNESIUMon 12-22-2023 Magnesium [Mass/Vol] 1.7 mg/dL Low 1.9-2.[address] [facility] Comment on above: Performed By: #### L [id number] ####[facility] ([facility])[address] [place] [address] PHOSPHORUSon 12-22-2023 Magnesium [Mass/Vol] 3.7 mg/dL Normal 2.5-5.[address] [facility] Comment on above: Performed By: #### L [id number] ####[facility] ([facility])[address] [place] [address] POCT GLUCOSE METER UNSOLICIT ED RESULTSon 12-22-2023 Glucose [Mass/Vol] 121 mg/dL High 70-105 [facility] Comment on above: Order Comment: Waive d Testing in the ED is performed under the ED CLIA certificate #[id number]. Result Comment: [email or web address] Performed By: #### L [id number] ####[facility] ([facility])[address] [place] [address] Glucose [Mass/Vol] 170 mg/dL High 70-105 [facility] Comment on above: Order Comment: Waive d Testing in the ED is performed under the ED CLIA certificate #[id number]. Result Comment: [email or web address] Performed By: #### L [id number] ####[facility] ([facility])[address] [place] [address] Glucose [Mass/Vol] 163 mg/dL High 70-105 [facility] Comment on above: Order Comment: Waive d Testing in the ED is performed under the ED CLIA certificate #[id number]. Result Comment: [email or web address] Performed By: #### L [id number] ####[facility] (BEAKER)[address] [place] [address] Glucose [Mass/Vol] 136 mg/dL High 70-105 [facility] Comment on above: Order Comment: Waive d Testing in the ED is performed under the ED CLIA certificate #[id number]. Result Comment: [email or web address] Performed By: #### L [id number] ####[facility] ([facility])[address] [place] [address] ANESon 12-21-2023 ANES Normal [facility] ANES Normal [facility] APTTon 12-21-2023 ACTIVATED PARTIAL THROMBOPLASTIN TIME IN PPP BY COAGULATION ASSAY 37.6 Seconds High 25.0-35.0 [facility] Comment on above: Result Comment: Clin ical significance of the APTT is questionable in the presence of heparin. Performed By: #### L [id number] ####[facility] ([facility])[address] [place] [address] BASIC METABOLIC PANELon 12-08 Anion gap [Moles/Vol] 6 mmol/L Low 7-20 [facility] Comment on above: Performed By: #### L [id number] ####[facility] ([facility])[address] [place] [address] Calcium [Mass/Vol] 8.1 mg/dL Low 8.6-10.3 [facility] Comment on above: Performed By: #### L [id number] ####[facility] ([facility])[address] [place] [address] Chloride [Moles/Vol] 102 mmol/L Normal 98-[address] [facility] Comment on above: Performed By: #### L [id number] ####[facility] ([facility])[address] [place] [address] CO2 [Moles/Vol] 30 mmol/L Normal 21-31 [facility] Comment on above: Performed By: #### L [id number] ####[facility] (BEAKER)[address] [place] [address] Creatinine [Mass/Vol] 0.40 mg/dL Low 0.70-1.30 [facility] Comment on above: Performed By: #### L [id number] ####[facility] ([facility])[address] [place] [address] GLOMERULAR FILTRATION RATE ML/MIN/1.73 SQ M.PREDICTED 112.4 mL/min/1.73m*2 Normal >60.0 [facility] Comment on above: Result Comment: [facility]???s estimated glomerular filtration rate (eGFR) will [...] of individuals. Performed By: #### L [id number] ####[facility] ([facility])[address] [place] [address] Glucose [Mass/Vol] 187 mg/dL High 70-100 [facility] Comment on above: Performed By: #### L [id number] ####[facility] ([facility])[address] [place] [address] Potassium [Moles/Vol] 3.9 mmol/L Normal 3.5-5.1 [facility] Comment on above: Performed By: #### L [id number] ####[facility] ([facility])[address] [place] [address] Sodium [Moles/Vol] 134 mmol/L Low 136-145 [facility] Comment on above: Performed By: #### L [id number] ####[facility] ([facility])[address] [place] [address] Urea nitrogen [Mass/Vol] 11 mg/dL Normal 7-25 [facility] Comment on above: Performed By: #### L [id number] ####[facility] ([facility])[address] [place] [address] UREA NITROGEN/CREATININE (MASS RATIO) IN SER/PLAS 27.5 Normal [facility] Comment on above: Performed By: #### L [id number] ####[facility] ([facility])[address] [place] [address] CBCon 12-21-2023 Erythrocyte distribution width (RBC) [Ratio] 18.2 % High 11.5-15.0 [facility] Comment on above: Performed By: #### L [id number] ####[facility] ([facility])[address] [place] [address] ERYTHROCYTE MEAN CORPUSCULAR HEMOGLOBIN CONCENTRATION (G/DL) BY AUTOMATED 30.2 g/dL Low 32.0-35.0 [facility] Comment on above: Performed By: #### L [id number] ####[facility] ([facility])[address] [place] [address] Hematocrit (Bld) [Volume fraction] 29.1 % Low 39.0-55.0 [facility] Comment on above: Performed By: #### L [id number] ####[facility] ([facility])[address] [place] [address] Hemoglobin (Bld) [Mass/Vol] 8.8 g/dL Low 13.0-17.0 [facility] Comment on above: Performed By: #### L [id number] ####[facility] ([facility])[address] [place] [address] MCH (RBC) [Entitic mass] 27.2 pg Normal 27.0-33.0 [facility] Comment on above: Performed By: #### L [id number] ####[facility] ([facility])[address] [place] [address] MCV (RBC) [Entitic vol] 90.1 fL Normal 82.0-98.0 [facility] on above: Performed By: #### L [id number] ####[facility] (BEAKER)[address] [place] [address] PLATELETS (10*3/UL) IN BLOOD AUTOMATED COUNT 188 10*3/uL Normal 150-400 [facility] Comment on above: Performed By: #### L [id number] ####[facility] (BEAKER)[address] [place] [address] RBC (Bld) [#/Vol] 3.23 10*6/uL Low 4.20-5.70 [facility] Comment on above: Performed By: #### L [id number] ####[facility] (BEAKER)[address] [place] [address] WBC (Bld) [#/Vol] 6.24 10*3/uL Normal 4.00-10.60 [facility] Comment on above: Performed By: #### L [id number] ####[facility] ([facility])[address] [place] [address] HISTOLOGY - TISSUE EXAMon LAB AP CASE REPORT Normal [facility] Comment on above: Order Comment: Pre-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]Encounter for pre-operative examination [Z01.818] Result Comment: Surg ical Pathology Case: [id number] Provider: Anjelica Zapata MD Collected: 12/21/2023 1640Ordering Location: [facility] Main Operating Room Received: 12/22/2023 1002Pathologist: MONICA Marreropecimen: Leg, LEFT KNEE/LEG Performed By: #### L [id number] ####[facility] (BEAKER)[address] [place] [address] LAB AP CLINICAL INFORMATION Normal [facility] Comment on above: Order Comment: Pre-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]Encounter for pre-operative examination [Z01.818] Result Comment: Post -Op [id number] - Gangrene of lower extremity (CMS/HCC) [ICD-10-CM]Z01.818 - Encounter for pre-operative examination [ICD-10-CM] Performed By: #### L [id number] ####[facility] ([facility])[address] [place] [address] LAB AP GROSS DESCRIPTION A. Leg. Normal [facility] Comment on above: Order Comment: Pre-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]Encounter for pre-operative examination [Z01.818] Result Comment: Rece ived fresh labeled Max Sanchez, LEFT KNEE/LEG is an above-knee amputation specimen, consistent with BKA revision. The specimen is 11 cm proximal femoral margin to femoral condyles & 12 cm in diameter, and 22 cm from tibial plateau to blunted all amputation site, ranging from 10 to 9 cm in diameter. The proximal 5 cm of femur is resected without overlying skin and soft tissue. Along the blunted distal aspect there is an anterior linear incision closed with silver metallic yue, 11.5 cm in length. Involving varying circumferential portions of the distal 15 cm of the leg is a purple-brown crusted dull eschar encompassing the linear incision site. At least six additional crusted, eroded green-marroquin to red-brown foci are noted extending proximally, ranging from 0.7 to 4.3 cm in greatest dimension. The largest area is 0.7 cm from the proximal margin on the posterior aspect. The remainder of the skin is lui and generally uniform with patchy violaceous areas. Soft tissue underlying the previous amputation incision is dark red-pink and largely friable; however, the tibial and fibular medullary bone is lui firm and uniform.The popliteal artery is identified, 0.7 cm in diameter; the vessel wall is markedly crisp and the lumen appears entirely obstructed with crisp and rubbery material. The anterior tibial artery is identified, 0.3 cm in diameter; the vessel wall is markedly crisp and the lumen is partially occluded. The posterior tibial artery is 0.3 cm in diameter; although majority of the lumen is patent, the vessel wall is crisp throughout.Cassettes:1 Proximal skin and soft tissue margin2 Proximal femoral marrow, after decalcification3 Distal eschar and linear incision/scar4 Additional crusted eroded areas5 Popliteal artery, after decalcification6 Anterior tibial artery, after decalcification7 Posterior tibial artery, after decalcificationNicole Myranda, Pathologists' Physics Technical Officer Performed By: #### L [id number] ####[facility] ([facility])[address] [place] [address] LAB AP MICROSCOPIC DESCRIPTION Microscopic examination performed. [facility] Comment on above: Order Comment: Pre-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]Encounter for pre-operative examination [Z01.818] Performed By: #### L [id number] ####[facility] ([facility])[address] [place] [address] LAB AP REPORT FINAL DIAGNOSIS NARRATIVE [facility] Comment on above: Order Comment: Pre-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]Encounter for pre-operative examination [Z01.818] Result Comment: A. L eft knee and leg, amputation revision:- Gangrenous necrosis of skin and soft tissue.- Calcific atherosclerosis of major vessels.- No evidence of acute osteomyelitis.- Viable soft tissue and bone resection margins. Performed By: #### L [id number] ####[facility] ([facility])[address] [place] [address] HPon 12-21-2023 HP Normal [facility] Labon 12-21-2023 Lab Normal [facility] MRSA/MSSA DNA NASALon 2023 MRSA DNA Negative Normal Negative [facility] Comment on above: Order Comment: Testi [...] preclude nasal colonization. Performed By: #### L [id number] ####[facility] ([facility])[address] [place] [address] MSSA DNA Negative Normal Negative [facility] Comment on above: Order Comment: Testi [...] preclude nasal colonization. Performed By: #### L [id number] ####[facility] ([facility])[address] [facility] [address] NURSNOTEon 12-21-2023 NURSNOTE Patient arrived to [facility] with No complaints. Call light in reach. Dinner ordered. Normal [facility] OPNOTEon 12-21-2023 OPNOTE Normal [facility] POCT GLUCOSE METER UNSOLICIT ED RESULTSon 12-21-2023 Glucose [Mass/Vol] 99 mg/dL Normal 70-105 [facility] Comment on above: Order Comment: Waive d Testing in the ED is performed under the ED CLIA certificate #[id number]. Result Comment: [email or web address] [email or web address] Performed By: #### L [id number] ####[facility] ([facility])[address] [facility] [place] [address] Glucose [Mass/Vol] 99 mg/dL Normal 70-105 [facility] Comment on above: Order Comment: Waive d Testing in the ED is performed under the ED CLIA certificate #[id number]. Result Comment: [email or web address] Performed By: #### L [id number] ####[facility] ([employer])[address] [facility] [place] [address] Glucose [Mass/Vol] 164 mg/dL High 70-105 [facility] Comment on above: Order Comment: Waive d Testing in the ED is performed under the ED CLIA certificate #[id number]. Result Comment: acle ment Performed By: #### L [id number] ####[facility] ([facility])[address] [facility] [place] [address] PROTIME-INRon 12-21-2023 INR IN PPP BY COAGULATION ASSAY 1.20 High 0.90-1.10 [facility] Comment on above: Result Comment: ACCC [...] CHEST 1995;[id number]. Performed By: #### L [id number] ####[facility] [employer])[address] [place] [address] PROTHROMBIN TIME (PT) IN PPP BY COAGULATION ASSAY 15.2 Seconds High 12.3-14.8 [facility] Comment on above: Performed By: #### L [id number] ####[facility] ([employer])[address] [place] [address] TYPE AND SCREENon 12-21-2023 AB SCREEN Negative Normal [facility] Comment on above: Performed By: #### L [id number] ####[facility] BLOOD BANK, ABO group Nom (Bld) O Normal [facility] Comment on above: Performed By: #### L [id number] ####[facility] BLOOD BANK, RH TYPE IN BLOOD Positive Normal [facility] Comment on above: Performed By: #### L [id number] ####[facility] BLOOD BANK, Orders Onlyon 12-19-2023 Orders Only [facility] Prep for Procedureon 024 Prep for Procedure Normal [facility] Follow-Upon 12-16-2023 Follow-Up [facility] 36on 12-07-2023 36 Critical lab - Hgb - 6.8, Hematocrit - 22.8. [employer] RN Angeles Mendes notified and contacted patient. [facility] Documentationon 12-07-2023 Documentation [facility] Orders Onlyon 12-07-2023 Orders Only [facility] Orders Onlyon 12-05-2023 Orders Only [facility] Telemedicineon 12-01-2023 Telemedicine [facility] Follow-Upon 11-30-2023 Follow-Up [facility] 36on 11-28-2023 36 Confirmed appointmen t change with spouse. She voiced understanding. [facility] 36 Patient is currently scheduled in person on 12/01/23. Please respond. [facility] 36on 11-24-2023 36 Patient is currently at [place] in [facility]. Dr. Gian Horta is following the patient in Rehab. Patients Ijeoma is requesting a virtual appointment due to patient recovery post leg amputation. Please Advise. [facility] Telephoneon 11-24-2023 Telephone [facility] BASIC METABOLIC PANELon 11-10 Anion gap [Moles/Vol] 12 mmol/L Normal 7-20 [facility] Comment on above: Performed By: #### L [id number] ####[facility] (BEAKER)[address] [place] [address] Calcium [Mass/Vol] 7.7 mg/dL Low 8.6-10.3 [facility] Comment on above: Performed By: #### L [id number] ####[facility] (BEAKER)[address] [place] [address] Chloride [Moles/Vol] 98 mmol/L Normal 98-[address] [facility] Comment on above: Performed By: #### L [id number] ####[facility] ([facility])[address] [place] [address] CO2 [Moles/Vol] 26 mmol/L Normal 21-31 [facility] Comment on above: Performed By: #### L [id number] ####[facility] ([facility])[address] [place] [address] Creatinine [Mass/Vol] 0.37 mg/dL Low 0.70-1.30 [facility] Comment on above: Performed By: #### L [id number] ####[facility] ([facility])[address] [place] [address] GLOMERULAR FILTRATION RATE ML/MIN/1.73 SQ M.PREDICTED 115.8 mL/min/1.73m*2 Normal >60.0 [facility] Comment on above: Result Comment: [facility]???s estimated glomerular filtration rate (eGFR) will [...] of individuals. Performed By: #### L [id number] ####[facility] ([facility])[address] [place] [address] Glucose [Mass/Vol] 103 mg/dL High 70-100 [facility] Comment on above: Performed By: #### L [id number] ####[facility] ([facility])[address] [place] [address] Potassium [Moles/Vol] 3.9 mmol/L Normal 3.5-5.1 [facility] Comment on above: Performed By: #### L [id number] ####[facility] ([facility])[address] [place] [address] Sodium [Moles/Vol] 132 mmol/L Low 136-145 [facility] Comment on above: Performed By: #### L [id number] ####[facility] ([facility])[address] [place] [address] Urea nitrogen [Mass/Vol] 6 mg/dL Low 7-25 [facility] Comment on above: Performed By: #### L [id number] ####[facility] ([facility])[address] [place] [address] UREA NITROGEN/CREATININE (MASS RATIO) IN SER/PLAS 16.2 Normal [facility] Comment on above: Performed By: #### L [id number] ####[facility] ([facility])[address] [place] [address] CBC WITH AUTO DIFFERENTIALon 11-21-2023 Basophils (Bld) [#/Vol] 0.01 10*3/uL Normal 0.00-0.20 [facility] Comment on above: Performed By: #### L [id number] ####[facility] ([facility])[address] [place] [address] Basophils/100 WBC (Bld) 0.2 % Normal 0.0-1.0 [facility] Comment on above: Performed By: #### L [id number] ####[facility] ([facility])[address] [place] [address] Eosinophils (Bld) [#/Vol] 0.01 10*3/uL Normal 0.00-0.50 [facility] Comment on above: Performed By: #### L [id number] ####[facility] ([facility])[address] [place] [address] Eosinophils/100 WBC (Bld) 0.2 % Normal 0.0-6.0 [facility] Comment on above: Performed By: #### L [id number] ####[facility] ([facility])[address] [place] [address] Erythrocyte distribution width (RBC) [Ratio] 17.0 % High 11.5-15.0 [facility] Comment on above: Performed By: #### L [id number] ####[facility] LAB (BEAKER)[address] [place] [address] ERYTHROCYTE MEAN CORPUSCULAR HEMOGLOBIN CONCENTRATION (G/DL) BY AUTOMATED 31.6 g/dL Low 32.0-35.0 [facility] Comment on above: Performed By: #### L [id number] ####[facility] ([facility])[address] [place] [address] Hematocrit (Bld) [Volume fraction] 25.6 % Low 39.0-55.0 [facility] Comment on above: Performed By: #### L [id number] ####[facility] ([facility])[address] [place] [address] Hemoglobin (Bld) [Mass/Vol] 8.1 g/dL Low 13.0-17.0 [facility] Comment on above: Performed By: #### L [id number] ####[facility] (BEAKER)[address] [place] [address] Immature granulocytes (Bld) [#/Vol] 0.03 10*3/uL Normal 0.00-0.20 [facility] Comment on above: Performed By: #### L [id number] ####[facility] (BEAKER)[address] [place] [address] Immature granulocytes/100 WBC (Bld) 0.5 % Normal 0.0-1.0 [facility] Comment on above: Performed By: #### L [id number] ####[facility] [facility] [place] [address] Lymphocytes (Bld) [#/Vol] 0.34 10*3/uL Low 1.20-4.00 [facility] Comment on above: Performed By: #### L [id number] ####[facility] ([facility])[address] [place] [address] Lymphocytes/100 WBC (Bld) 5.9 % Low 20.0-45.0 [facility] Comment on above: Performed By: #### L [id number] ####[facility] ([facility]ER)[address] [place] [address] MCH (RBC) [Entitic mass] 26.7 pg Low 27.0-33.0 [facility] Comment on above: Performed By: #### L [id number] ####[facility] ([facility])[address] [place] [address] MCV (RBC) [Entitic vol] 84.5 fL Normal 82.0-98.0 [facility] Comment on above: Performed By: #### L [id number] ####[facility] ([facility])[address] [place] [address] Monocytes (Bld) [#/Vol] 0.74 10*3/uL Normal 0.10-1.00 [facility] Comment on above: Performed By: #### L [id number] ####[facility] ([facility])[address] [place] [address] Monocytes/100 WBC (Bld) 12.8 % High 5.0-12.0 [facility] Comment on above: Performed By: #### L [id number] ####[facility] ([facility])[address] [place] [address] Neutrophils (Bld) [#/Vol] 4.66 10*3/uL Normal 1.60-7.60 [facility] Comment on above: Performed By: #### L [id number] ####[facility] ([facility])[address] [place] [address] Neutrophils/100 WBC (Bld) 80.4 % High 40.0-72.0 [facility] Comment on above: Performed By: #### L [id number] ####[facility] ([facility])[address] [place] [address] NRBC (PER 100 WBCS) BY AUTOMATED COUNT 0.0 % Normal 0 [facility] Comment on above: Performed By: #### L [id number] ####[facility] ([facility])[address] [place] [address] PLATELETS (10*3/UL) IN BLOOD AUTOMATED COUNT 172 10*3/uL Normal 150-400 [facility] Comment on above: Performed By: #### L [id number] ####[facility] ([facility])[address] [place] [address] RBC (Bld) [#/Vol] 3.03 10*6/uL Low 4.20-5.70 [facility] Comment on above: Performed By: #### L [id number] ####[facility] ([facility])[address] [place] [address] WBC (Bld) [#/Vol] 5.79 10*3/uL Normal 4.00-10.60 [facility] Comment on above: Performed By: #### L [id number] ####[facility] ([facility])[address] [place] [address] CONSULTon 11-21-2023 CONSULT Normal [facility] DSon 11-21-2023 DS Normal [facility] HEPATIC FUNCTION PANELon Albumin [Mass/Vol] 2.4 g/dL Low 3.5-5.7 [facility] Comment on above: Performed By: #### L [id number] ####[facility] ([facility])[address] [place] [address] ALP [Catalytic activity/Vol] 215 U/L High 34-104 [facility] Comment on above: Performed By: #### L [id number] ####[facility] ([facility])[address] [place] [address] ALT [Catalytic activity/Vol] 147 U/L High 7-52 [facility] Comment on above: Performed By: #### L [id number] ####[facility] ([facility])[address] [place] [address] AST [Catalytic activity/Vol] 110 U/L High 13-39 [facility] Comment on above: Performed By: #### L [id number] ####[facility] ([facility])[address] [place] [address] Bilirubin [Mass/Vol] 0.8 mg/dL Normal 0.3-1.[address] [facility] Comment on above: Performed By: #### L [id number] ####[facility] ([facility])[address] [place] [address] Magnesium [Mass/Vol] 0.6 mg/dL High 0-0.[address] [facility] Comment on above: Performed By: #### L [id number] ####[facility] ([facility])[address] [place] [address] Protein [Mass/Vol] 6.3 g/dL Normal 6.0-8.3 [facility] Comment on above: Performed By: #### L [id number] ####[facility] ([facility])[address] [place] [address] POCT GLUCOSE METER UNSOLICIT ED RESULTSon 11-21-2023 Glucose [Mass/Vol] 192 mg/dL High 70-105 [facility] Comment on above: Order Comment: Waive d Testing in the ED is performed under the ED CLIA certificate #[id number]. Result Comment: [email or web address] Performed By: #### L [id number] ####[facility] ([facility])[address] [place] [address] Glucose [Mass/Vol] 155 mg/dL High 70-105 [facility] Comment on above: Order Comment: Waive d Testing in the ED is performed under the ED CLIA certificate #[id number]. Result Comment: [email or web address] Performed By: #### L [id number] ####[facility] ([facility])[address] [place] [address] Glucose [Mass/Vol] 108 mg/dL High 70-105 [facility] Comment on above: Order Comment: Waive d Testing in the ED is performed under the ED CLIA certificate #[id number]. Result Comment: [email or web address] Performed By: #### L [id number] ####[facility] ([facility])[address] [place] [address] Glucose [Mass/Vol] 115 mg/dL High 70-105 [facility] Comment on above: Order Comment: Waive d Testing in the ED is performed under the ED CLIA certificate #[id number]. Result Comment: [email or web address] Performed By: #### L [id number] ####[facility] (BE[facility]ER)[address] [place] [address] PROTIME-INRon 11-21-2023 INR IN PPP BY COAGULATION ASSAY 1.40 High 0.90-1.10 [facility] Comment on above: Result Comment: ACCC [...] CHEST 1995;[id number]. Performed By: #### L [id number] ####[facility] (BE[facility]ER)[address] [place] [address] PROTHROMBIN TIME (PT) IN PPP BY COAGULATION ASSAY 17.2 Seconds High 12.3-14.8 [facility] Comment on above: Performed By: #### L [id number] ####[facility] ([facility])[address] [place] [address] BASIC METABOLIC PANELon 11-10 Anion gap [Moles/Vol] 11 mmol/L Normal 7-20 [facility] Comment on above: Performed By: #### L [id number] ####[facility] ([facility])[address] [place] [address] Calcium [Mass/Vol] 7.8 mg/dL Low 8.6-10.3 [facility] Comment on above: Performed By: #### L [id number] ####[facility] ([facility])[address] [place] [address] Chloride [Moles/Vol] 101 mmol/L Normal 98-[address] [facility] Comment on above: Performed By: #### L [id number] ####[facility] ([facility])[address] [place] [address] CO2 [Moles/Vol] 24 mmol/L Normal 21-31 [facility] Comment on above: Performed By: #### L [id number] ####[facility] ([facility])[address] [place] [address] Creatinine [Mass/Vol] 0.43 mg/dL Low 0.70-1.30 [facility] Comment on above: Performed By: #### L [id number] ####[facility] ([facility])[address] [place] [address] GLOMERULAR FILTRATION RATE ML/MIN/1.73 SQ M.PREDICTED 110.6 mL/min/1.73m*2 Normal >60.0 [facility] Comment on above: Result Comment: [facility]???s estimated glomerular filtration rate (eGFR) will [...] of individuals. Performed By: #### L [id number] ####[facility] ([facility])[address] [place] [address] Glucose [Mass/Vol] 104 mg/dL High 70-100 [facility] Comment on above: Performed By: #### L [id number] ####[facility] ([facility])[address] [place] [address] Potassium [Moles/Vol] 3.7 mmol/L Normal 3.5-5.1 [facility] Comment on above: Performed By: #### L [id number] ####[facility] ([facility])[address] [place] [address] Sodium [Moles/Vol] 132 mmol/L Low 136-145 [facility] Comment on above: Performed By: #### L [id number] ####[facility] ([facility])[address] [place] [address] Urea nitrogen [Mass/Vol] 9 mg/dL Normal 7-25 [facility] Comment on above: Performed By: #### L [id number] ####[facility] ([facility])[address] [place] [address] UREA NITROGEN/CREATININE (MASS RATIO) IN SER/PLAS 20.9 Normal [facility] Comment on above: Performed By: #### L [id number] ####[facility] ([facility])[address] [place] [address] CBC WITH AUTO DIFFERENTIALon 11-20-2023 Basophils (Bld) [#/Vol] 0.02 10*3/uL Normal 0.00-0.20 [facility] Comment on above: Performed By: #### L [id number] ####[facility] ([facility])[address] [place] [address] Basophils/100 WBC (Bld) 0.5 % Normal 0.0-1.0 [facility] Comment on above: Performed By: #### L [id number] ####[facility] ([facility])[address] [place] [address] Eosinophils (Bld) [#/Vol] 0.02 10*3/uL Normal 0.00-0.50 [facility] Comment on above: Performed By: #### L [id number] ####[facility] ([facility])[address] [place] [address] Eosinophils/100 WBC (Bld) 0.5 % Normal 0.0-6.0 [facility] Comment on above: Performed By: #### L [id number] ####[facility] ([facility])[address] [place] [address] Erythrocyte distribution width (RBC) [Ratio] 17.1 % High 11.5-15.0 [facility] Comment on above: Performed By: #### L [id number] ####[facility] ([facility])[address] [place] [address] ERYTHROCYTE MEAN CORPUSCULAR HEMOGLOBIN CONCENTRATION (G/DL) BY AUTOMATED 31.6 g/dL Low 32.0-35.0 [facility] Comment on above: Performed By: #### L [id number] ####[facility] ([facility])[address] [place] [address] Hematocrit (Bld) [Volume fraction] 22.8 % Low 39.0-55.0 [facility] Comment on above: Performed By: #### L [id number] ####[facility] ([facility]ER)[address] [place] [address] Hemoglobin (Bld) [Mass/Vol] 7.2 g/dL Low 13.0-17.0 [facility] Comment on above: Performed By: #### L [id number] ####[facility] ([facility])[address] [place] [address] Immature granulocytes (Bld) [#/Vol] 0.05 10*3/uL Normal 0.00-0.20 [facility] Comment on above: Performed By: #### L [id number] ####[facility] ([facility])[address] [place] [address] Immature granulocytes/100 WBC (Bld) 1.2 % High 0.0-1.0 [facility] Comment on above: Performed By: #### L [id number] ####[facility] ([facility])[address] [place] [address] Lymphocytes (Bld) [#/Vol] 0.32 10*3/uL Low 1.20-4.00 [facility] Comment on above: Performed By: #### L [id number] ####[facility] ([facility])[address] [place] [address] Lymphocytes/100 WBC (Bld) 7.4 % Low 20.0-45.0 [facility] Comment on above: Performed By: #### L [id number] ####[facility] ([facility])[address] [place] [address] MCH (RBC) [Entitic mass] 26.6 pg Low 27.0-33.0 [facility] Comment on above: Performed By: #### L [id number] ####[facility] ([facility])[address] [place] [address] MCV (RBC) [Entitic vol] 84.1 fL Normal 82.0-98.0 [facility] Comment on above: Performed By: #### L [id number] ####[facility] ([facility])[address] [place] [address] Monocytes (Bld) [#/Vol] 0.39 10*3/uL Normal 0.10-1.00 [facility] Comment on above: Performed By: #### L [id number] ####[facility] ([facility])[address] [place] [address] Monocytes/100 WBC (Bld) 9.1 % Normal 5.0-12.0 [facility] Comment on above: Performed By: #### L [id number] ####[facility] ([facility])[address] [place] [address] Neutrophils (Bld) [#/Vol] 3.50 10*3/uL Normal 1.60-7.60 [facility] Comment on above: Performed By: #### L [id number] ####[facility] ([facility])[address] [place] [address] Neutrophils/100 WBC (Bld) 81.3 % High 40.0-72.0 [facility] Comment on above: Performed By: #### L [id number] ####[facility] ([facility])[address] [place] [address] NRBC (PER 100 WBCS) BY AUTOMATED COUNT 0.0 % Normal 0 [facility] Comment on above: Performed By: #### L [id number] ####[facility] ([facility])[address] [place] [address] PLATELETS (10*3/UL) IN BLOOD AUTOMATED COUNT 168 10*3/uL Normal 150-400 [facility] Comment on above: Performed By: #### L [id number] ####[facility] ([facility])[address] [place] [address] RBC (Bld) [#/Vol] 2.71 10*6/uL Low 4.20-5.70 [facility] Comment on above: Performed By: #### L [id number] ####[facility] ([facility])[address] [place], [place] [address] WBC (Bld) [#/Vol] 4.30 10*3/uL Normal 4.00-10.60 [facility] Comment on above: Performed By: #### L [id number] ####[facility] ([facility])[address] [place] [address] HEPATIC FUNCTION PANELon Albumin [Mass/Vol] 2.4 g/dL Low 3.5-5.7 [facility] Comment on above: Performed By: #### L [id number] ####[facility] ([facility])[address] [place] [address] ALP [Catalytic activity/Vol] 201 U/L High 34-104 [facility] Comment on above: Performed By: #### L [id number] ####[facility] ([facility])[address] [place] [address] ALT [Catalytic activity/Vol] 160 U/L High 7-52 [facility] Comment on above: Performed By: #### L [id number] ####[facility] ([facility])[address] [place] [address] AST [Catalytic activity/Vol] 107 U/L High 13-39 [facility] Comment on above: Performed By: #### L [id number] ####[facility] ([facility])[address] [place] [address] Bilirubin [Mass/Vol] 0.5 mg/dL Normal 0.3-1.[address] [facility] Comment on above: Performed By: #### L [id number] ####[facility] ([facility])[address] [place] [address] Magnesium [Mass/Vol] 0.3 mg/dL High 0-0.[address] [facility] Comment on above: Performed By: #### L [id number] ####[facility] ([facility])[address] [place] [address] Protein [Mass/Vol] 6.1 g/dL Normal 6.0-8.3 [facility] Comment on above: Performed By: #### L [id number] ####[facility] ([facility])[address] [place] [address] POCT GLUCOSE METER UNSOLICIT ED RESULTSon 11-20-2023 Glucose [Mass/Vol] 96 mg/dL Normal 70-105 [facility] Comment on above: Order Comment: Waive d Testing in the ED is performed under the ED CLIA certificate #[id number]. Result Comment: [email or web address] Performed By: #### L [id number] ####[facility] ([facility])[address] [place] [address] Glucose [Mass/Vol] 124 mg/dL High 70-105 [facility] Comment on above: Order Comment: Waive d Testing in the ED is performed under the ED CLIA certificate #[id number]. Result Comment: [email or web address] Performed By: #### L [id number] ####[facility] ([facility]ER)[address] [facility] [place] [address] Glucose [Mass/Vol] 105 mg/dL Normal 70-105 [facility] Comment on above: Order Comment: Waive d Testing in the ED is performed under the ED CLIA certificate #[id number]. Result Comment: [email or web address] tor Performed By: #### L [id number] ####[facility] ([facility]ER)[address] [facility] [place] [address] TRANSFUSION REACTION EVALUAT IONon 11-20-2023 ABO GROUP (TYPE) IN BLOOD O [facility] Comment on above: Order Comment: Obtai n one Redtop and one Lavender Top. Send with Blood Bag and Infusion set to Blood Bank Performed By: #### L [id number] ####[facility], ANTI C3 LD Negative [facility] Comment on above: Order Comment: Obtai n one Redtop and one Lavender Top. Send with Blood Bag and Infusion set to Blood Bank Performed By: #### L [id number] ####[facility], ANTI IGG LD Negative [facility] Comment on above: Order Comment: Obtai n one Redtop and one Lavender Top. Send with Blood Bag and Infusion set to Blood Bank Performed By: #### L [id number] ####[facility], RH TYPE IN BLOOD Positive Normal [facility] Comment on above: Order Comment: Obtai n one Redtop and one Lavender Top. Send with Blood Bag and Infusion set to Blood Bank Performed By: #### L [id number] ####[facility], TRANSFUSION REACTION EVALUATION FEBRILE Normal [facility] Comment on above: Order Comment: Obtai n one Redtop and one Lavender Top. Send with Blood Bag and Infusion set to Blood Bank Performed By: #### L [id number] ####[facility], 30on 11-19-2023 30 Normal [facility] BASIC METABOLIC PANELon 11-10 Anion gap [Moles/Vol] 10 mmol/L Normal 7-20 [facility] Comment on above: Performed By: #### L [id number] ####[facility] ([facility])[address] [place] [address] Calcium [Mass/Vol] 7.8 mg/dL Low 8.6-10.3 [facility] Comment on above: Performed By: #### L [id number] ####[facility] ([facility])[address] [place] [address] Chloride [Moles/Vol] 100 mmol/L Normal 98-[address] [facility] Comment on above: Performed By: #### L [id number] ####[facility] ([facility])[address] [place] [address] CO2 [Moles/Vol] 25 mmol/L Normal 21-31 [facility] Comment on above: Performed By: #### L [id number] ####[facility] ([facility])[address] [place] [address] Creatinine [Mass/Vol] 0.36 mg/dL Low 0.70-1.30 [facility] Comment on above: Performed By: #### L [id number] ####[facility] ([facility])[address] [place] [address] GLOMERULAR FILTRATION RATE ML/MIN/1.73 SQ M.PREDICTED 116.7 mL/min/1.73m*2 Normal >60.0 [facility] Comment on above: Result Comment: [facility]???s estimated glomerular filtration rate (eGFR) will [...] of individuals. Performed By: #### L [id number] ####[facility] ([facility])[address] [place] [address] Glucose [Mass/Vol] 104 mg/dL High 70-100 [facility] Comment on above: Performed By: #### L [id number] ####[facility] ([facility])[address] [place] [address] Potassium [Moles/Vol] 3.7 mmol/L Normal 3.5-5.1 [facility] Comment on above: Performed By: #### L [id number] ####[facility] ([facility])[address] [place] [address] Sodium [Moles/Vol] 131 mmol/L Low 136-145 [facility] Comment on above: Performed By: #### L [id number] ####[facility] ([facility])[address] [place] [address] Urea nitrogen [Mass/Vol] 8 mg/dL Normal 7-25 [facility] Comment on above: Performed By: #### L [id number] ####[facility] ([facility])[address] [place] [address] UREA NITROGEN/CREATININE (MASS RATIO) IN SER/PLAS 22.2 Normal [facility] Comment on above: Performed By: #### L [id number] ####[facility] ([facility])[address] [place] [address] CBC WITH AUTO DIFFERENTIALon 11-19-2023 Basophils (Bld) [#/Vol] 0.03 10*3/uL Normal 0.00-0.20 [facility] Comment on above: Performed By: #### L [id number] ####[facility] ([facility])[address] [place] [address] Basophils/100 WBC (Bld) 0.6 % Normal 0.0-1.0 [facility] Comment on above: Performed By: #### L [id number] ####[facility] ([facility])[address] [place] [address] Eosinophils (Bld) [#/Vol] 0.01 10*3/uL Normal 0.00-0.50 [facility] Comment on above: Performed By: #### L [id number] ####[facility] (BEAKER)[address] [place] [address] Eosinophils/100 WBC (Bld) 0.2 % Normal 0.0-6.0 [facility] Comment on above: Performed By: #### L [id number] ####[facility] ([facility])[address] [place] [address] Erythrocyte distribution width (RBC) [Ratio] 16.9 % High 11.5-15.0 [facility] Comment on above: Performed By: #### L [id number] ####[facility] ([facility])[address] [place] [address] ERYTHROCYTE MEAN CORPUSCULAR HEMOGLOBIN CONCENTRATION (G/DL) BY AUTOMATED 31.6 g/dL Low 32.0-35.0 [facility] Comment on above: Performed By: #### L [id number] ####[facility] ([facility])[address] [place] [address] Hematocrit (Bld) [Volume fraction] 25.6 % Low 39.0-55.0 [facility] Comment on above: Performed By: #### L [id number] ####[facility] ([facility])[address] [place] [address] Hemoglobin (Bld) [Mass/Vol] 8.1 g/dL Low 13.0-17.0 [facility] Comment on above: Performed By: #### L [id number] ####[facility] ([facility])[address] [place] [address] Immature granulocytes (Bld) [#/Vol] 0.04 10*3/uL Normal 0.00-0.20 [facility] Comment on above: Performed By: #### L [id number] ####[facility] ([facility])[address] [place] [address] Immature granulocytes/100 WBC (Bld) 0.8 % Normal 0.0-1.0 [facility] Comment on above: Performed By: #### L [id number] ####[facility] ([facility])[address] [place] [address] Lymphocytes (Bld) [#/Vol] 0.37 10*3/uL Low 1.20-4.00 [facility] Comment on above: Performed By: #### L [id number] ####[facility] ([facility])[address] [place] [address] Lymphocytes/100 WBC (Bld) 7.2 % Low 20.0-45.0 [facility] Comment on above: Performed By: #### L [id number] ####[facility] ([facility])[address] [place] [address] MCH (RBC) [Entitic mass] 26.1 pg Low 27.0-33.0 [facility] Comment on above: Performed By: #### L [id number] ####[facility] ([facility])[address] [place] [address] MCV (RBC) [Entitic vol] 82.6 fL Normal 82.0-98.0 [facility] Comment on above: Performed By: #### L [id number] ####[facility] ([facility])[address] [place] [address] Monocytes (Bld) [#/Vol] 0.54 10*3/uL Normal 0.10-1.00 [facility] Comment on above: Performed By: #### L [id number] ####[facility] (BEAKER)[address] [place] [address] Monocytes/100 WBC (Bld) 10.5 % Normal 5.0-12.0 [facility] Comment on above: Performed By: #### L [id number] ####[facility] (BEAKER)[address] [place] [address] Neutrophils (Bld) [#/Vol] 4.13 10*3/uL Normal 1.60-7.60 [facility] Comment on above: Performed By: #### L [id number] ####[facility] (BEAKER)[address] [place] [address] Neutrophils/100 WBC (Bld) 80.7 % High 40.0-72.0 [facility] Comment on above: Performed By: #### L [id number] ####[facility] ([facility])[address] [place] [address] NRBC (PER 100 WBCS) BY AUTOMATED COUNT 0.0 % Normal 0 [facility] Comment on above: Performed By: #### L [id number] ####[facility] ([facility])[address] [place] [address] PLATELETS (10*3/UL) IN BLOOD AUTOMATED COUNT 205 10*3/uL Normal 150-400 [facility] Comment on above: Performed By: #### L [id number] ####[facility] ([facility])[address] [place] [address] RBC (Bld) [#/Vol] 3.10 10*6/uL Low 4.20-5.70 [facility] Comment on above: Performed By: #### L [id number] ####[facility] ([facility])[address] [place] [address] WBC (Bld) [#/Vol] 5.12 10*3/uL Normal 4.00-10.60 [facility] Comment on above: Performed By: #### L [id number] ####[facility] ([facility])[address] [place] [address] NURSNOTEon 11-19-2023 NURSNOTE Normal [facility] POCT GLUCOSE METER UNSOLICIT ED RESULTSon 11-19-2023 Glucose [Mass/Vol] 157 mg/dL High 70-105 [facility] Comment on above: Order Comment: Waive d Testing in the ED is performed under the ED CLIA certificate #[id number]. Result Comment: [email or web address] [email or web address] Performed By: #### L [id number] ####[facility] ([facility])[address] [place] [address] Glucose [Mass/Vol] 127 mg/dL High 70-105 [facility] Comment on above: Order Comment: Waive d Testing in the ED is performed under the ED CLIA certificate #[id number]. Result Comment: shor [email or web address] Performed By: #### L [id number] ####[facility] (BEAKER)[address] [place] [address] Glucose [Mass/Vol] 112 mg/dL High 70-105 [facility] Comment on above: Order Comment: Waive d Testing in the ED is performed under the ED CLIA certificate #[id number]. Result Comment: swey [id number] Value Noted Performed By: #### L [id number] ####[facility] (BEAKER)[address] [place] [address] [id number] 11-18-2023 [id number] Normal [facility] 30on 11-18-2023 30 Normal [facility] AFP TUMOR MARKERon 4 ALPHA FETOPROTEIN TUMOR MARKER 2 ng/mL Normal 0-9 [facility] Comment on above: Result Comment: INTE RPRETIVE INFORMATION: Alpha Fetoprotein Tumor MarkerThe Daljit Rancho Access DxI AFP method is used. Resultsobtained [...] gender-specific referenceintervals for this test in the [facility] Test Directory([employer]).Performed By: [facility] [place] [id number] Director: Dashawn Dumont MD, PhDCLIA Number: [id number] Performed By: #### L [id number] ####[facility] ([facility])[address] [place] [address] [id number] 2023 ALPHA-1 ANTITRYPSIN 333 mg/dL High 90-200 [facility] Comment on above: Result Comment: To c onvert to umol/L, multiply mg/dL by 0.185Performed By: [facility] [place], [place] [address]Gvxtfsbvik Director: Dashawn Dumont MD, PhDCLIA Number: [id number] Performed By: #### L [id number] ####[facility] ([facility])[address] [place] [address] ANAon 11-18-2023 ALLYSSA TITER <1:40 Normal <=1:40 [facility] Comment on above: Result Comment: Test performed using STAR IFA ALLYSSA Hep-2 Test, a pre-standardized assay designed for the qualitative and semi-quantitative detection of antinuclear antibodies. Performed By: #### L [id number] ####[facility] (BEAKER)[address] [place] [address] ANESon 11-18-2023 ANE Normal [facility] ANE Normal [facility] ANTI-SMOOTH MUSCLE ANTIBODY TITERon 11-18-2023 SMOOTH MUSCLE AB, IGG TITER 1:80 High <1:20 [facility] Comment on above: Result Comment: INTE RPRETIVE INFORMATION: Smooth Muscle Ab, IgG Titer Less than 1:20 ........ Negative - No antibody detected. 1:20 - 1:80 .......... Weak Positive - Suggest repeat in two to three weeks with fresh specimen. 1:160 or greater ...... Positive - Suggestive of autoimmune hepatitis or chronic active hepatitis.Performed By: [facility] [place], [place] [address]Gnlernhofa Director: Dashawn Dumont MD, PhDCLIA Number: [id number] Performed By: #### L [id number] ####[facility] ([facility])[address] [place] [address] ANTI-SMOOTH MUSCLE ANTIBODY, IGG WITH REFLEX TO TITERon 11-18-2023 SMOOTH MUSCLE ANTIBODY 20 Units High 0-19 [facility] Comment on above: Result Comment: REFE [...] IFA ifsuspicion for AIH is strong.Performed By: [facility] [place], [place] [address]Weffvcgydq Director: Dashawn Dumont MD, PhDCLIA Number: [id number] Performed By: #### L [id number] ####[facility] ([facility])[address] [place] [address] CBC WITH AUTO DIFFERENTIALon 11-18-2023 Basophils (Bld) [#/Vol] 0.02 10*3/uL Normal 0.00-0.20 [facility] Comment on above: Performed By: #### L [id number] ####[facility] (BEAKER)[address] [place] [address] Basophils/100 WBC (Bld) 0.2 % Normal 0.0-1.0 [facility] Comment on above: Performed By: #### L [id number] ####[facility] (BEAKER)[address] [place] [address] Eosinophils (Bld) [#/Vol] 0.01 10*3/uL Normal 0.00-0.50 [facility] Comment on above: Performed By: #### L [id number] ####[facility] (BEAKER)[address] [place] [address] Eosinophils/100 WBC (Bld) 0.1 % Normal 0.0-6.0 [facility] Comment on above: Performed By: #### L [id number] ####[facility] (BEAKER)[address] [place] [address] Erythrocyte distribution width (RBC) [Ratio] 16.3 % High 11.5-15.0 [facility] Comment on above: Performed By: #### L [id number] ####[facility] (BEAKER)[address] [place] [address] ERYTHROCYTE MEAN CORPUSCULAR HEMOGLOBIN CONCENTRATION (G/DL) BY AUTOMATED 32.1 g/dL Normal 32.0-35.0 [facility] Comment on above: Performed By: #### L [id number] ####[facility] (BEAKER)[address] [place] [address] Hematocrit (Bld) [Volume fraction] 23.7 % Low 39.0-55.0 [facility] Comment on above: Performed By: #### L [id number] ####[facility] (BEAKER)[address] [place] [address] Hemoglobin (Bld) [Mass/Vol] 7.6 g/dL Low 13.0-17.0 [facility] Comment on above: Performed By: #### L [id number] ####[facility] (BEAKER)[address] [place] [address] Immature granulocytes (Bld) [#/Vol] 0.05 10*3/uL Normal 0.00-0.20 [facility] Comment on above: Performed By: #### L [id number] ####[facility] (BEAKER)[address] [place] [address] Immature granulocytes/100 WBC (Bld) 0.6 % Normal 0.0-1.0 [facility] Comment on above: Performed By: #### L [id number] ####[facility] (BEAKER)[address] [place] [address] Lymphocytes (Bld) [#/Vol] 0.42 10*3/uL Low 1.20-4.00 [facility] Comment on above: Performed By: #### L [id number] ####[facility] (BEAKER)[address] [place] [address] Lymphocytes/100 WBC (Bld) 4.8 % Low 20.0-45.0 [facility] Comment on above: Performed By: #### L [id number] ####[facility] (BEAKER)[address] [place] [address] MCH (RBC) [Entitic mass] 26.5 pg Low 27.0-33.0 [facility] Comment on above: Performed By: #### L [id number] ####[facility] (BEAKER)[address] [place] [address] MCV (RBC) [Entitic vol] 82.6 fL Normal 82.0-98.0 [facility] Comment on above: Performed By: #### L [id number] ####[facility] (BEAKER)[address] [place] [address] Monocytes (Bld) [#/Vol] 0.82 10*3/uL Normal 0.10-1.00 [facility] Comment on above: Performed By: #### L [id number] ####[facility] (BEAKER)[address] [place] [address] Monocytes/100 WBC (Bld) 9.3 % Normal 5.0-12.0 [facility] Comment on above: Performed By: #### L [id number] ####[facility] (BEAKER)[address] [place] [address] Neutrophils (Bld) [#/Vol] 7.52 10*3/uL Normal 1.60-7.60 [facility] Comment on above: Performed By: #### L [id number] ####[facility] (BEAKER)[address] [place] [address] Neutrophils/100 WBC (Bld) 85.0 % High 40.0-72.0 [facility] Comment on above: Performed By: #### L [id number] ####[facility] ([facility])[address] [place] [address] NRBC (PER 100 WBCS) BY AUTOMATED COUNT 0.0 % Normal 0 [facility] Comment on above: Performed By: #### L [id number] ####[facility] ([facility])[address] [place] [address] PLATELETS (10*3/UL) IN BLOOD AUTOMATED COUNT 192 10*3/uL Normal 150-400 [facility] Comment on above: Performed By: #### L [id number] ####[facility] ([facility])[address] [place] [address] RBC (Bld) [#/Vol] 2.87 10*6/uL Low 4.20-5.70 [facility] Comment on above: Performed By: #### L [id number] ####[facility] ([facility])[address] [place] [address] WBC (Bld) [#/Vol] 8.84 10*3/uL Normal 4.00-10.60 [facility] Comment on above: Performed By: #### L [id number] ####[facility] ([facility])[address] [place] [address] CMV IGMon 11-18-2023 CMV IGM <8.0 Normal <=29.9 [facility] Comment on above: Result Comment: INTE [...] Tissues andCellular and Tissue-Based Products (HCT/P).Performed By: [facility] [place], [place] [address]Ssicorimwp Director: Dashawn Dumont MD, PhDCLIA Number: [id number] Performed By: #### L [id number] ####[facility] ([facility])[address] [place] [address] COMPREHENSIVE METABOLIC PANE Sridhar 11-18-2023 Albumin [Mass/Vol] 2.6 g/dL Low 3.5-5.7 [facility] Comment on above: Performed By: #### L [id number] ####[facility] ([facility])[address] [place] [address] ALP [Catalytic activity/Vol] 252 U/L High 34-104 [facility] Comment on above: Performed By: #### L [id number] ####[facility] ([facility])[address] [place] [address] ALT [Catalytic activity/Vol] 280 U/L High 7-52 [facility] Comment on above: Performed By: #### L [id number] ####[facility] (BEAKER)[address] [place] [address] Anion gap [Moles/Vol] 8 mmol/L Normal 7-20 [facility] Comment on above: Performed By: #### L [id number] ####[facility] (BEAKER)[address] [place] [address] AST [Catalytic activity/Vol] 293 U/L High 13-39 [facility] Comment on above: Performed By: #### L [id number] ####[facility] (BEAKER)[address] [place] [address] Bilirubin [Mass/Vol] 0.9 mg/dL Normal 0.3-1.[address] [facility] Comment on above: Performed By: #### L [id number] ####[facility] ([facility])[address] [place] [address] Calcium [Mass/Vol] 7.8 mg/dL Low 8.6-10.3 [facility] Comment on above: Performed By: #### L [id number] ####[facility] ([facility])[address] [place] [address] Chloride [Moles/Vol] 97 mmol/L Low 98-[address] [facility] Comment on above: Performed By: #### L [id number] ####[facility] ([facility])[address] [place] [address] CO2 [Moles/Vol] 27 mmol/L Normal 21-31 [facility] Comment on above: Performed By: #### L [id number] ####[facility] ([facility])[address] [place] [address] Creatinine [Mass/Vol] 0.38 mg/dL Low 0.70-1.30 [facility] Comment on above: Performed By: #### L [id number] ####[facility] ([facility])[address] [place] [address] GLOMERULAR FILTRATION RATE ML/MIN/1.73 SQ M.PREDICTED 114.8 mL/min/1.73m*2 Normal >60.0 [facility] Comment on above: Result Comment: [facility]???s estimated glomerular filtration rate (eGFR) will [...] of individuals. Performed By: #### L [id number] ####[facility] ([facility])[address] [place] [address] Glucose [Mass/Vol] 106 mg/dL High 70-100 [facility] Comment on above: Performed By: #### L [id number] ####[facility] ([facility])[address] [place] [address] Potassium [Moles/Vol] 4.3 mmol/L Normal 3.5-5.1 [facility] Comment on above: Performed By: #### L [id number] ####[facility] ([facility])[address] [place] [address] Protein [Mass/Vol] 6.4 g/dL Normal 6.0-8.3 [facility] Comment on above: Performed By: #### L [id number] ####[facility] ([facility])[address] [place] [address] Sodium [Moles/Vol] 128 mmol/L Low 136-145 [facility] Comment on above: Performed By: #### L [id number] ####[facility] ([facility])[address] [place] [address] Performed By: #### L [id number] ####[facility] ([facility])[address] [place] [address] Urea nitrogen [Mass/Vol] 14 mg/dL Normal 7-25 [facility] Comment on above: Performed By: #### L [id number] ####[facility] ([facility])[address] [place] [address] UREA NITROGEN/CREATININE (MASS RATIO) IN SER/PLAS 36.8 [facility] Comment on above: Performed By: #### L [id number] ####[facility] ([facility])[address] [place] [address] CONSULTon 11-18-2023 CONSULT Normal [facility] CONSULT Normal [facility] DIGOXIN LEVELon 11-18-2023 DIGOXIN (NG/ML) IN SER/PLAS 0.6 ng/mL Low 0.7-2 [facility] Comment on above: Performed By: #### L [id number] ####[facility] ([facility])[address] [place] [address] GIOVANNA-GARG VIRUS VCA, IGMo n 11-18-2023 GIOVANNA-GARG VCA IGM 0.00 Normal <1.[address] [facility] Comment on above: Result Comment: NORM AL RANGES:< OR = 0.90 NEGATIVE ; NO SIGNIFICANT LEVEL OF DETECTABLE EBV-VCA IgM AB0.91 - 1.09 EQUIVOCAL; REPEAT TESTING SUGGESTED> OR = 1.10 POSITIVE ; SIGNIFICANT LEVEL OF DETECTABLE EBV-VCA IgM AB Performed By: #### L [id number] ####[facility] ([facility])[address] [place] [address] HEMOGLOBINon 11-18-2023 Hemoglobin (Bld) [Mass/Vol] 7.7 g/dL Low 13.0-17.0 [facility] Comment on above: Performed By: #### L [id number] ####[facility] ([facility])[address] [place] [address] MITOCHONDRIAL ANTIBODIES, M2 on 11-18-2023 MITOCHONDRIAL M2 ANTIBODY 31.0 Units High 0.0-24.9 [facility] Comment on above: Result Comment: REFE [...] negative result doesnot rule out PBC.Performed By: [facility] [employer] [place] [id number] Director: Dashawn Dumont MD, PhDCLIA Number: [id number] Performed By: #### L [id number] ####[facility] [employer])[address] [place] [address] NURSNOTEon 11-18-2023 NURSNOTE Varices banded x 1 Normal [facility] POCT GLUCOSE METER UNSOLICIT ED RESULTSon 11-18-2023 Glucose [Mass/Vol] 107 mg/dL High 70-105 [facility] Comment on above: Order Comment: Waive d Testing in the ED is performed under the ED CLIA certificate #[id number]. Result Comment: swey [id number] Value Noted Performed By: #### L [id number] ####[facility] ([employer])[address] [facility] [place] [place] [address] Glucose [Mass/Vol] 124 mg/dL High 70-105 [facility] Comment on above: Order Comment: Waive d Testing in the ED is performed under the ED CLIA certificate #[id number]. Result Comment: ow [email or web address] Performed By: #### L [id number] ####[facility] ([employer])[address] [facility] [place] [address] Glucose [Mass/Vol] 114 mg/dL High 70-105 [facility] Comment on above: Order Comment: Waive d Testing in the ED is performed under the ED CLIA certificate #[id number]. Result Comment: [email or web address] [email or web address] Performed By: #### L [id number] ####[facility] ([employer])[address] ConnectloudSELECT [facility] [place] [address] SODIUMon 11-18-2023 Sodium [Moles/Vol] 128 mmol/L Low 136-145 [facility] Comment on above: Performed By: #### L [id number] ####[facility] ([employer])[address] [facility] [place] [address] Sodium [Moles/Vol] 129 mmol/L Low 136-145 [facility] Comment on above: Performed By: #### L [id number] ####[facility] ([employer])[address] [facility] [place] [address] TISSUE TRANSGLUTAMINASE, IGA on 11-18-2023 TISSUE TRANSGLUTAMINASE, IGA <1.02 Normal 0.00-4.99 [facility] Comment on above: Result Comment: INTE [...] response totherapy. Performed By: #### L [id number] ####[facility] ([facility])[address] [place] [address] ACETAMINOPHEN LEVELon 2023 ACETAMINOPHEN (UG/ML) IN SER/PLAS <10 Low 10-30 [facility] Comment on above: Performed By: #### L [id number] ####[facility] ([facility])[address] [place] [address] APTTon 11-17-2023 ACTIVATED PARTIAL THROMBOPLASTIN TIME IN PPP BY COAGULATION ASSAY 53.6 Seconds High 25.0-35.0 [facility] Comment on above: Result Comment: Clin ical significance of the APTT is questionable in the presence of heparin. Performed By: #### L [id number] ####[facility] ([employer])[address] [place] [address] BASIC METABOLIC PANELon Anion gap [Moles/Vol] 9 mmol/L Normal 7-20 [facility] Comment on above: Performed By: #### L [id number] ####[facility] ([employer])[address] [place] [address] Calcium [Mass/Vol] 8.0 mg/dL Low 8.6-10.3 [facility] Comment on above: Performed By: #### L [id number] ####[facility] ([facility])[address] [place] [address] Chloride [Moles/Vol] 94 mmol/L Low 98-[address] [facility] Comment on above: Performed By: #### L [id number] ####[facility] ([facility])[address] [place] [address] CO2 [Moles/Vol] 27 mmol/L Normal 21-31 [facility] Comment on above: Performed By: #### L [id number] ####[facility] ([facility])[address] [place] [address] Creatinine [Mass/Vol] 0.51 mg/dL Low 0.70-1.30 [facility] Comment on above: Performed By: #### L [id number] ####[facility] ([facility])[address] [place] [address] GLOMERULAR FILTRATION RATE ML/MIN/1.73 SQ M.PREDICTED 105.1 mL/min/1.73m*2 Normal >60.0 [facility] Comment on above: Result Comment: [facility]???s estimated glomerular filtration rate (eGFR) will [...] of individuals. Performed By: #### L [id number] ####[facility] ([facility])[address] [place] [address] Glucose [Mass/Vol] 156 mg/dL High 70-100 [facility] Comment on above: Performed By: #### L [id number] ####[facility] ([facility])[address] [place] [address] Potassium [Moles/Vol] 4.0 mmol/L Normal 3.5-5.1 [facility] Comment on above: Performed By: #### L [id number] ####[facility] ([facility])[address] [place] [address] Sodium [Moles/Vol] 126 mmol/L Low 136-145 [facility] Comment on above: Performed By: #### L [id number] ####[facility] ([facility])[address] [place] [address] Urea nitrogen [Mass/Vol] 18 mg/dL Normal 7-25 [facility] Comment on above: Performed By: #### L [id number] ####[facility] ([facility])[address] [place] [address] UREA NITROGEN/CREATININE (MASS RATIO) IN SER/PLAS 35.3 Normal [facility] Comment on above: Performed By: #### L [id number] ####[facility] ([facility])[address] [place] [address] CBC WITH AUTO DIFFERENTIALon 11-17-2023 Basophils (Bld) [#/Vol] 0.02 10*3/uL Normal 0.00-0.20 [facility] Comment on above: Performed By: #### L [id number] ####[facility] ([facility])[address] [place] [address] Basophils/100 WBC (Bld) 0.2 % Normal 0.0-1.0 [facility] Comment on above: Performed By: #### L [id number] ####[facility] ([facility])[address] [place] [address] Eosinophils (Bld) [#/Vol] 0.03 10*3/uL Normal 0.00-0.50 [facility] Comment on above: Performed By: #### L [id number] ####[facility] ([facility])[address] [place] [address] Eosinophils/100 WBC (Bld) 0.4 % Normal 0.0-6.0 [facility] Comment on above: Performed By: #### L [id number] ####[facility] ([facility])[address] [place] [address] Erythrocyte distribution width (RBC) [Ratio] 16.9 % High 11.5-15.0 [facility] Comment on above: Performed By: #### L [id number] ####[facility] ([facility])[address] [place] [address] ERYTHROCYTE MEAN CORPUSCULAR HEMOGLOBIN CONCENTRATION (G/DL) BY AUTOMATED 31.6 g/dL Low 32.0-35.0 [facility] Comment on above: Performed By: #### L [id number] ####[facility] ([facility])[address] [place] [address] Hematocrit (Bld) [Volume fraction] 21.5 % Low 39.0-55.0 [facility] Comment on above: Performed By: #### L [id number] ####[facility] ([facility])[address] [place] [address] Hemoglobin (Bld) [Mass/Vol] 6.8 g/dL Low 13.0-17.0 [facility] Comment on above: Performed By: #### L [id number] ####[facility] ([facility])[address] [place] [address] Immature granulocytes (Bld) [#/Vol] 0.04 10*3/uL Normal 0.00-0.20 [facility] Comment on above: Performed By: #### L [id number] ####[facility] ([facility])[address] [place] [address] Immature granulocytes/100 WBC (Bld) 0.5 % Normal 0.0-1.0 [facility] Comment on above: Performed By: #### L [id number] ####[facility] ([facility])[address] [place] [address] Lymphocytes (Bld) [#/Vol] 0.43 10*3/uL Low 1.20-4.00 [facility] Comment on above: Performed By: #### L [id number] ####[facility] ([facility])[address] [place] [address] Lymphocytes/100 WBC (Bld) 5.1 % Low 20.0-45.0 [facility] Comment on above: Performed By: #### L [id number] ####[facility] ([facility])[address] [place] [address] MCH (RBC) [Entitic mass] 26.3 pg Low 27.0-33.0 [facility] Comment on above: Performed By: #### L [id number] ####[facility] ([facility])[address] [place] [address] MCV (RBC) [Entitic vol] 83.0 fL Normal 82.0-98.0 [facility] Comment on above: Performed By: #### L [id number] ####[facility] ([facility])[address] [place] [address] Monocytes (Bld) [#/Vol] 0.77 10*3/uL Normal 0.10-1.00 [facility] Comment on above: Performed By: #### L [id number] ####[facility] ([facility])[address] [place] [address] Monocytes/100 WBC (Bld) 9.1 % Normal 5.0-12.0 [facility] Comment on above: Performed By: #### L [id number] ####[facility] ([facility])[address] [place] [address] Neutrophils (Bld) [#/Vol] 7.13 10*3/uL Normal 1.60-7.60 [facility] Comment on above: Performed By: #### L [id number] ####[facility] ([facility])[address] [place] [address] Neutrophils/100 WBC (Bld) 84.7 % High 40.0-72.0 [facility] Comment on above: Performed By: #### L [id number] ####[facility] ([facility])[address] [place] [address] NRBC (PER 100 WBCS) BY AUTOMATED COUNT 0.0 % Normal 0 [facility] Comment on above: Performed By: #### L [id number] ####[facility] ([facility])[address] [place] [address] PLATELETS (10*3/UL) IN BLOOD AUTOMATED COUNT 187 10*3/uL Normal 150-400 [facility] Comment on above: Performed By: #### L [id number] ####[facility] ([facility])[address] [place] [address] RBC (Bld) [#/Vol] 2.59 10*6/uL Low 4.20-5.70 [facility] Comment on above: Performed By: #### L [id number] ####[facility] ([facility])[address] [place] [address] WBC (Bld) [#/Vol] 8.42 10*3/uL Normal 4.00-10.60 [facility] Comment on above: Performed By: #### L [id number] ####[facility] ([facility])[address] [place] [address] CONSULTon 11-17-2023 CONSULT Normal [facility] EDPROVon 11-17-2023 EDPROV Normal [facility] HEPATIC FUNCTION PANELon Albumin [Mass/Vol] 2.7 g/dL Low 3.5-5.7 [facility] Comment on above: Performed By: #### L [id number] ####[facility] ([facility])[address] [place] [address] ALP [Catalytic activity/Vol] 308 U/L High 34-104 [facility] Comment on above: Performed By: #### L [id number] ####[facility] ([facility])[address] [place] [address] ALT [Catalytic activity/Vol] 349 U/L High 7-52 [facility] Comment on above: Performed By: #### L [id number] ####[facility] ([facility])[address] [place] [address] AST [Catalytic activity/Vol] 523 U/L High 13-39 [facility] Comment on above: Performed By: #### L [id number] ####[facility] ([facility])[address] [place] [address] Bilirubin [Mass/Vol] 0.4 mg/dL Normal 0.3-1.[address] [facility] Comment on above: Performed By: #### L [id number] ####[facility] ([facility])[address] [place] [address] Magnesium [Mass/Vol] 0.4 mg/dL High 0-0.[address] [facility] Comment on above: Performed By: #### L [id number] ####[facility] ([facility])[address] [place] [address] Protein [Mass/Vol] 6.8 g/dL Normal 6.0-8.3 [facility] Comment on above: Performed By: #### L [id number] ####[facility] ([facility])[address] [place] [address] HEPATITIS PANEL, ACUTEon HEPATITIS A VIRUS IGM AB PRESENCE IN SER/PLAS Indeterminate Abnormal Nonreactive [facility] Comment on above: Order Comment: Patie nts with specimens exhibiting indeterminate test results should be retested at approximately one-week intervals. Performed By: #### L [id number] ####[facility] ([facility])[address] [place] [address] HEPATITIS B VIRUS CORE AB (PRESENCE) IN SER/PLAS BY IMM Non-Reactive Normal Nonreactive [facility] Comment on above: Order Comment: Patie nts with specimens exhibiting indeterminate test results should be retested at approximately one-week intervals. Performed By: #### L [id number] ####[facility] ([facility])[address] [place] [address] HEPATITIS B VIRUS SURFACE AG PRESENCE IN SERUM Non-Reactive Normal Nonreactive [facility] Comment on above: Order Comment: Patie nts with specimens exhibiting indeterminate test results should be retested at approximately one-week intervals. Performed By: #### L [id number] ####[facility] [employer])[address] [place] [address] HEPATITIS C VIRUS AB PRESENCE IN SERUM Non-Reactive Normal Nonreactive [facility] Comment on above: Order Comment: Patie nts with specimens exhibiting indeterminate test results should be retested at approximately one-week intervals. Performed By: #### L [id number] ####[facility] [employer])[address] [place] [address] HPon 11-17-2023 HP Normal [facility] PROTIME-INRon 11-17-2023 INR IN PPP BY COAGULATION ASSAY 1.57 High 0.90-1.10 [facility] Comment on above: Result Comment: ACCC [...] CHEST 1995;[id number]. Performed By: #### L [id number] ####[facility] [employer])[address] [place] [address] PROTHROMBIN TIME (PT) IN PPP BY COAGULATION ASSAY 18.8 Seconds High 12.3-14.8 [facility] Comment on above: Performed By: #### L [id number] ####[facility] ([facility])[address] [place] [address] TROPONIN Ion 11-17-2023 Troponin I.cardiac [Mass/Vol] 0.02 ng/mL Normal 0.00-0.04 [facility] Comment on above: Performed By: #### L [id number] ####[facility] ([facility])[address] [place] [address] TYPE AND SCREENon 11-17-2023 AB SCREEN Negative Normal [facility] Comment on above: Performed By: #### L [id number] ####[facility] BLOOD BANK, ABO group Nom (Bld) O Normal [facility] Comment on above: Performed By: #### L [id number] ####[facility] BLOOD [facility], RH TYPE IN BLOOD Positive Normal [facility] Comment on above: Performed By: #### L [id number] ####[facility] BLOOD B[facility], 30on 11-08-2023 30 Normal [facility] ANTI-XA (HEPARIN LEVEL)on HEPARIN UNFRACTIONATED (U/ML) IN PPP BY CHROMOGENIC METHOD 0.10 IU/mL Invalid Interpretation Code 0.3-0.7 [facility] Comment on above: Order Comment: Check anti-Xa level every 6 hours while on heparin infusion, or per protocol. Result Comment: Masha roxaban and Apixaban will interfere with the anti Xa assay used to monitor UFH and LMWH. Performed By: #### L [id number] ####[facility] ([facility])[address] [place] [address] HEPARIN UNFRACTIONATED (U/ML) IN PPP BY CHROMOGENIC METHOD <0.10 Invalid Interpretation Code 0.3-0.7 [facility] Comment on above: Order Comment: Check anti-Xa level every 6 hours while on heparin infusion, or per protocol. Result Comment: Masha roxaban and Apixaban will interfere with the anti Xa assay used to monitor UFH and LMWH. Performed By: #### L [id number] ####[facility] ([facility])[address] [place] [address] HEPARIN UNFRACTIONATED (U/ML) IN PPP BY CHROMOGENIC METHOD <0.10 Invalid Interpretation Code 0.3-0.7 [facility] Comment on above: Order Comment: Check anti-Xa level every 6 hours while on heparin infusion, or per protocol. Result Comment: Masha roxaban and Apixaban will interfere with the anti Xa assay used to monitor UFH and LMWH. Performed By: #### L [id number] ####[facility] ([facility])[address] [place] [address] BASIC METABOLIC PANELon 10-12 0 Anion gap [Moles/Vol] 11 mmol/L Normal 7-20 [facility] Comment on above: Performed By: #### L [id number] ####[facility] ([facility])[address] [place] [address] Calcium [Mass/Vol] 7.9 mg/dL Low 8.6-10.3 [facility] Comment on above: Performed By: #### L [id number] ####[facility] ([facility])[address] [place] [address] Chloride [Moles/Vol] 98 mmol/L Normal 98-[address] [facility] Comment on above: Performed By: #### L [id number] ####[facility] ([facility])[address] [place] [address] CO2 [Moles/Vol] 26 mmol/L Normal 21-31 [facility] Comment on above: Performed By: #### L [id number] ####[facility] ([facility])[address] [place] [address] Creatinine [Mass/Vol] 0.31 mg/dL Low 0.70-1.30 [facility] Comment on above: Performed By: #### L [id number] ####[facility] ([facility])[address] [place] [address] GLOMERULAR FILTRATION RATE ML/MIN/1.73 SQ M.PREDICTED 122.1 mL/min/1.73m*2 Normal >60.0 [facility] Comment on above: Result Comment: [facility]???s estimated glomerular filtration rate (eGFR) will [...] of individuals. Performed By: #### L [id number] ####[facility] ([facility])[address] [place] [address] Glucose [Mass/Vol] 120 mg/dL High 70-100 [facility] Comment on above: Performed By: #### L [id number] ####[facility] ([facility])[address] [place] [address] Potassium [Moles/Vol] 3.8 mmol/L Normal 3.5-5.1 [facility] Comment on above: Performed By: #### L [id number] ####[facility] ([facility])[address] [place] [address] Sodium [Moles/Vol] 131 mmol/L Low 136-145 [facility] Comment on above: Performed By: #### L [id number] ####[facility] ([facility])[address] [place] [address] Urea nitrogen [Mass/Vol] 13 mg/dL Normal 7-25 [facility] Comment on above: Performed By: #### L [id number] ####[facility] ([facility])[address] [place] [address] UREA NITROGEN/CREATININE (MASS RATIO) IN SER/PLAS 41.9 Normal [facility] Comment on above: Performed By: #### L [id number] ####[facility] ([facility])[address] [place] [address] CBCon 11-08-2023 Erythrocyte distribution width (RBC) [Ratio] 16.7 % High 11.5-15.0 [facility] Comment on above: Performed By: #### L [id number] ####[facility] ([facility])[address] [place] [address] ERYTHROCYTE MEAN CORPUSCULAR HEMOGLOBIN CONCENTRATION (G/DL) BY AUTOMATED 31.8 g/dL Low 32.0-35.0 [facility] Comment on above: Performed By: #### L [id number] ####[facility] ([facility])[address] [place] [address] Hematocrit (Bld) [Volume fraction] 27.4 % Low 39.0-55.0 [facility] Comment on above: Performed By: #### L [id number] ####[facility] ([facility])[address] [place] [address] Hemoglobin (Bld) [Mass/Vol] 8.7 g/dL Low 13.0-17.0 [facility] Comment on above: Performed By: #### L [id number] ####[facility] ([facility])[address] [place] [address] MCH (RBC) [Entitic mass] 26.2 pg Low 27.0-33.0 [facility] Comment on above: Performed By: #### L [id number] ####[facility] ([facility])[address] [place] [address] MCV (RBC) [Entitic vol] 82.5 fL Normal 82.0-98.0 [facility] Comment on above: Performed By: #### L [id number] ####[facility] ([facility])[address] [place] [address] PLATELETS (10*3/UL) IN BLOOD AUTOMATED COUNT 187 10*3/uL Normal 150-400 [facility] Comment on above: Performed By: #### L [id number] ####[facility] ([facility])[address] [place] [address] RBC (Bld) [#/Vol] 3.32 10*6/uL Low 4.20-5.70 [facility] Comment on above: Performed By: #### L [id number] ####[facility] ([facility])[address] [place] [address] WBC (Bld) [#/Vol] 8.48 10*3/uL Normal 4.00-10.60 [facility] Comment on above: Performed By: #### L [id number] ####[facility] ([facility])[address] [place] [address] DSon 11-08-2023 DS Normal [facility] MAGNESIUMon 11-08-2023 Magnesium [Mass/Vol] 1.6 mg/dL Low 1.9-2.[address] [facility] Comment on above: Performed By: #### L [id number] ####[facility] ([facility])[address] [place] [address] NURSNOTEon 11-08-2023 NURSNOTE Tubular Splitting Machine Tender attempted kenia ling report to [address] with no answer Normal [facility] PHOSPHORUSon 11-08-2023 Magnesium [Mass/Vol] 2.8 mg/dL Normal 2.5-5.[address] [facility] Comment on above: Performed By: #### L [id number] ####[facility] ([facility])[address] [place] [address] POCT GLUCOSE METER UNSOLICIT ED RESULTSon 11-08-2023 Glucose [Mass/Vol] 144 mg/dL High 70-105 [facility] Comment on above: Order Comment: Waive d Testing in the ED is performed under the ED CLIA certificate #[id number]. Result Comment: elac umsky Performed By: #### L [id number] ####[facility] ([facility])[address] [place] [address] Glucose [Mass/Vol] 141 mg/dL High 70-105 [facility] Comment on above: Order Comment: Waive d Testing in the ED is performed under the ED CLIA certificate #[id number]. Result Comment: elac umsky Performed By: #### L [id number] ####[facility] ([facility])[address] [place] [address] 30on 11-07-2023 30 Normal [facility] ANTI-XA (HEPARIN LEVEL)on HEPARIN UNFRACTIONATED (U/ML) IN PPP BY CHROMOGENIC METHOD <0.10 Invalid Interpretation Code 0.3-0.7 [facility] Comment on above: Order Comment: Check anti-Xa level every 6 hours while on heparin infusion, or per protocol. Result Comment: Masha roxaban and Apixaban will interfere with the anti Xa assay used to monitor UFH and LMWH. Performed By: #### L [id number] ####[facility] ([facility])[address] [place] [address] APTTon 11-07-2023 ACTIVATED PARTIAL THROMBOPLASTIN TIME IN PPP BY COAGULATION ASSAY 44.6 Seconds High 25.0-35.0 [facility] Comment on above: Order Comment: Basel ine aPTT before initiating heparin infusion. Result Comment: Clin ical significance of the APTT is questionable in the presence of heparin. Performed By: #### L [id number] ####[facility] ([facility])[address] [place] [address] BASIC METABOLIC PANELon 10-11 Anion gap [Moles/Vol] 16 mmol/L Normal 7-20 [facility] Comment on above: Performed By: #### L [id number] ####[facility] ([facility])[address] [place] [address] Calcium [Mass/Vol] 8.6 mg/dL Normal 8.6-10.3 [facility] Comment on above: Performed By: #### L [id number] ####[facility] ([facility])[address] [place] [address] Chloride [Moles/Vol] 97 mmol/L Low 98-[address] [facility] Comment on above: Performed By: #### L [id number] ####[facility] ([facility])[address] [place] [address] CO2 [Moles/Vol] 21 mmol/L Normal 21-31 [facility] Comment on above: Performed By: #### L [id number] ####[facility] ([facility])[address] [place] [address] Creatinine [Mass/Vol] 0.32 mg/dL Low 0.70-1.30 [facility] Comment on above: Performed By: #### L [id number] ####[facility] ([facility])[address] [place] [address] GLOMERULAR FILTRATION RATE ML/MIN/1.73 SQ M.PREDICTED 121.0 mL/min/1.73m*2 Normal >60.0 [facility] Comment on above: Result Comment: [facility]???s estimated glomerular filtration rate (eGFR) will [...] of individuals. Performed By: #### L [id number] ####[facility] ([facility])[address] [place] [address] Glucose [Mass/Vol] 114 mg/dL High 70-100 [facility] Comment on above: Performed By: #### L [id number] ####[facility] ([facility])[address] [place] [address] Potassium [Moles/Vol] 4.1 mmol/L Normal 3.5-5.1 [facility] Comment on above: Performed By: #### L [id number] ####[facility] ([facility])[address] [place] [address] Sodium [Moles/Vol] 130 mmol/L Low 136-145 [facility] Comment on above: Performed By: #### L [id number] ####[facility] ([facility])[address] [place] [address] Urea nitrogen [Mass/Vol] 5 mg/dL Low 7-25 [facility] Comment on above: Performed By: #### L [id number] ####[facility] ([facility])[address] [place] [address] UREA NITROGEN/CREATININE (MASS RATIO) IN SER/PLAS 15.6 Normal [facility] Comment on above: Performed By: #### L [id number] ####[facility] ([facility])[address] [place] [address] CBCon 11-07-2023 Erythrocyte distribution width (RBC) [Ratio] 16.8 % High 11.5-15.0 [facility] Comment on above: Performed By: #### L [id number] ####[facility] ([facility])[address] [place] [address] ERYTHROCYTE MEAN CORPUSCULAR HEMOGLOBIN CONCENTRATION (G/DL) BY AUTOMATED 32.1 g/dL Normal 32.0-35.0 [facility] Comment on above: Performed By: #### L [id number] ####[facility] ([facility])[address] [place] [address] Hematocrit (Bld) [Volume fraction] 29.3 % Low 39.0-55.0 [facility] Comment on above: Performed By: #### L [id number] ####[facility] ([facility])[address] [place] [address] Hemoglobin (Bld) [Mass/Vol] 9.4 g/dL Low 13.0-17.0 [facility] Comment on above: Performed By: #### L [id number] ####[facility] ([facility])[address] [place] [address] MCH (RBC) [Entitic mass] 26.6 pg Low 27.0-33.0 [facility] Comment on above: Performed By: #### L [id number] ####[facility] ([facility]ER)[address] [place] [address] MCV (RBC) [Entitic vol] 83.0 fL Normal 82.0-98.0 [facility] Comment on above: Performed By: #### L [id number] ####[facility] ([facility])[address] [place] [address] PLATELETS (10*3/UL) IN BLOOD AUTOMATED COUNT 214 10*3/uL Normal 150-400 [facility] Comment on above: Performed By: #### L [id number] ####[facility] ([facility])[address] [place] [address] RBC (Bld) [#/Vol] 3.53 10*6/uL Low 4.20-5.70 [facility] Comment on above: Performed By: #### L [id number] ####[facility] ([facility])[address] [place] [address] WBC (Bld) [#/Vol] 10.83 10*3/uL High 4.00-10.[address] [facility] Comment on above: Performed By: #### L [id number] ####[facility] ([facility])[address] [place] [address] PLATELET COUNTon 11-07-2023 PLATELETS (10*3/UL) IN BLOOD AUTOMATED COUNT 208 10*3/uL Normal 150-400 [facility] Comment on above: Performed By: #### L [id number] ####[facility] ([facility])[address] [place] [address] POCT GLUCOSE METER UNSOLICIT ED RESULTSon 11-07-2023 Glucose [Mass/Vol] 143 mg/dL High 70-105 [facility] Comment on above: Order Comment: Waive d Testing in the ED is performed under the ED CLIA certificate #[id number]. Result Comment: manny nugent Performed By: #### L [id number] ####[facility] ([facility])[address] [place] [address] Glucose [Mass/Vol] 131 mg/dL High 70-105 [facility] Comment on above: Order Comment: Waive d Testing in the ED is performed under the ED CLIA certificate #[id number]. Result Comment: elac umsky Performed By: #### L [id number] ####[facility] ([facility])[address] [place] [address] Glucose [Mass/Vol] 177 mg/dL High 70-105 [facility] Comment on above: Order Comment: Waive d Testing in the ED is performed under the ED CLIA certificate #[id number]. Result Comment: elac umsky Performed By: #### L [id number] ####[facility] ([facility])[address] [place] [address] Glucose [Mass/Vol] 133 mg/dL High 70-105 [facility] Comment on above: Order Comment: Waive d Testing in the ED is performed under the ED CLIA certificate #[id number]. Result Comment: elac umsky Performed By: #### L [id number] ####[facility] ([facility])[address] [place] [address] APTTon 11-06-2023 ACTIVATED PARTIAL THROMBOPLASTIN TIME IN PPP BY COAGULATION ASSAY 43.9 Seconds High 25.0-35.0 [facility] Comment on above: Order Comment: Check aPTT every 6 hours while on heparin infusion, or per protocol. Result Comment: Clin ical significance of the APTT is questionable in the presence of heparin. Performed By: #### L [id number] ####[facility] ([facility])[address] [place] [address] CBCon 11-06-2023 Erythrocyte distribution width (RBC) [Ratio] 16.8 % High 11.5-15.0 [facility] Comment on above: Performed By: #### L [id number] ####[facility] ([facility])[address] [place] [address] ERYTHROCYTE MEAN CORPUSCULAR HEMOGLOBIN CONCENTRATION (G/DL) BY AUTOMATED 32.0 g/dL Normal 32.0-35.0 [facility] Comment on above: Performed By: #### L [id number] ####[facility] ([facility])[address] [place] [address] Hematocrit (Bld) [Volume fraction] 27.8 % Low 39.0-55.0 [facility] Comment on above: Performed By: #### L [id number] ####[facility] ([facility])[address] [place] [address] Hemoglobin (Bld) [Mass/Vol] 8.9 g/dL Low 13.0-17.0 [facility] Comment on above: Performed By: #### L [id number] ####[facility] ([facility])[address] [place] [address] MCH (RBC) [Entitic mass] 26.8 pg Low 27.0-33.0 [facility] Comment on above: Performed By: #### L [id number] ####[facility] ([facility])[address] [place] [address] MCV (RBC) [Entitic vol] 83.7 fL Normal 82.0-98.0 [facility] Comment on above: Performed By: #### L [id number] ####[facility] ([facility])[address] [place] [address] PLATELETS (10*3/UL) IN BLOOD AUTOMATED COUNT 175 10*3/uL Normal 150-400 [facility] Comment on above: Performed By: #### L [id number] ####[facility] ([facility])[address] [place] [address] RBC (Bld) [#/Vol] 3.32 10*6/uL Low 4.20-5.70 [facility] Comment on above: Performed By: #### L [id number] ####[facility] ([facility])[address] [place] [address] WBC (Bld) [#/Vol] 8.08 10*3/uL Normal 4.00-10.60 [facility] Comment on above: Performed By: #### L [id number] ####[facility] ([facility])[address] [place] [address] COMPREHENSIVE METABOLIC PANE Sridhar 11-06-2023 Albumin [Mass/Vol] 3.0 g/dL Low 3.5-5.7 [facility] Comment on above: Performed By: #### L [id number] ####[facility] ([facility])[address] [place] [address] ALP [Catalytic activity/Vol] 139 U/L High 34-104 [facility] Comment on above: Performed By: #### L [id number] ####[facility] ([facility])[address] [place] [address] ALT [Catalytic activity/Vol] 80 U/L High 7-52 [facility] Comment on above: Performed By: #### L [id number] ####[facility] ([facility])[address] [place] [address] Anion gap [Moles/Vol] 9 mmol/L Normal 7-20 [facility] Comment on above: Performed By: #### L [id number] ####[facility] ([facility])[address] [place] [address] AST [Catalytic activity/Vol] 71 U/L High 13-39 [facility] Comment on above: Performed By: #### L [id number] ####[facility] ([facility])[address] [place] [address] Bilirubin [Mass/Vol] 0.6 mg/dL Normal 0.3-1.[address] [facility] Comment on above: Performed By: #### L [id number] ####[facility] ([facility])[address] [place] [address] Calcium [Mass/Vol] 8.3 mg/dL Low 8.6-10.3 [facility] Comment on above: Performed By: #### L [id number] ####[facility] ([facility])[address] [place] [address] Chloride [Moles/Vol] 97 mmol/L Low 98-[address] [facility] Comment on above: Performed By: #### L [id number] ####[facility] ([facility])[address] [place] [address] CO2 [Moles/Vol] 27 mmol/L Normal 21-31 [facility] Comment on above: Performed By: #### L [id number] ####[facility] ([facility])[address] [place] [address] Creatinine [Mass/Vol] 0.35 mg/dL Low 0.70-1.30 [facility] Comment on above: Performed By: #### L [id number] ####[facility] ([facility])[address] [place] [address] GLOMERULAR FILTRATION RATE ML/MIN/1.73 SQ M.PREDICTED 117.7 mL/min/1.73m*2 Normal >60.0 [facility] Comment on above: Result Comment: [facility]???s estimated glomerular filtration rate (eGFR) will [...] of individuals. Performed By: #### L [id number] ####[facility] ([facility])[address] [place] [address] Glucose [Mass/Vol] 153 mg/dL High 70-100 [facility] Comment on above: Performed By: #### L [id number] ####[facility] ([facility])[address] [place] [address] Potassium [Moles/Vol] 2.8 mmol/L Invalid Interpretation Code 3.5-5.1 [facility] Comment on above: Performed By: #### L [id number] ####[facility] ([facility])[address] [place] [address] Protein [Mass/Vol] 6.1 g/dL Normal 6.0-8.3 [facility] Comment on above: Performed By: #### L [id number] ####[facility] ([facility])[address] [place] [address] Sodium [Moles/Vol] 130 mmol/L Low 136-145 [facility] Comment on above: Performed By: #### L [id number] ####[facility] ([facility])[address] [place] [address] Urea nitrogen [Mass/Vol] 4 mg/dL Low 7-25 [facility] Comment on above: Performed By: #### L [id number] ####[facility] ([facility])[address] [place] [address] UREA NITROGEN/CREATININE (MASS RATIO) IN SER/PLAS 11.4 Normal [facility] Comment on above: Performed By: #### L [id number] ####[facility] ([facility])[address] [place] [address] POCT GLUCOSE METER UNSOLICIT ED RESULTSon 11-06-2023 Glucose [Mass/Vol] 159 mg/dL High 70-105 [facility] Comment on above: Order Comment: Waive d Testing in the ED is performed under the ED CLIA certificate #[id number]. Result Comment: [email or web address] Performed By: #### L [id number] ####[facility] ([facility])[address] [place] [address] Glucose [Mass/Vol] 122 mg/dL High 70-105 [facility] Comment on above: Order Comment: Waive d Testing in the ED is performed under the ED CLIA certificate #[id number]. Result Comment: kshe llh Performed By: #### L [id number] ####[facility] ([facility])[address] [place] [address] Glucose [Mass/Vol] 140 mg/dL High 70-105 [facility] Comment on above: Order Comment: Waive d Testing in the ED is performed under the ED CLIA certificate #[id number]. Result Comment: [email or web address] llh Performed By: #### L [id number] ####[facility] ([facility])[address] [place] [address] Glucose [Mass/Vol] 144 mg/dL High 70-105 [facility] Comment on above: Order Comment: Waive d Testing in the ED is performed under the ED CLIA certificate #[id number]. Result Comment: og llh Performed By: #### L [id number] ####[facility] ([facility])[address] [place] [address] 30on 11-05-2023 30 Normal [facility] APTTon 11-05-2023 ACTIVATED PARTIAL THROMBOPLASTIN TIME IN PPP BY COAGULATION ASSAY 45.3 Seconds High 25.0-35.0 [facility] Comment on above: Order Comment: Check aPTT every 6 hours while on heparin infusion, or per protocol. Result Comment: Clin ical significance of the APTT is questionable in the presence of heparin. Performed By: #### L [id number] ####[facility] ([facility])[address] [place] [address] CBCon 11-05-2023 Erythrocyte distribution width (RBC) [Ratio] 16.8 % High 11.5-15.0 [facility] Comment on above: Performed By: #### L [id number] ####[facility] ([facility])[address] [place] [address] ERYTHROCYTE MEAN CORPUSCULAR HEMOGLOBIN CONCENTRATION (G/DL) BY AUTOMATED 32.1 g/dL Normal 32.0-35.0 [facility] Comment on above: Performed By: #### L [id number] ####[facility] ([facility])[address] [place] [address] Hematocrit (Bld) [Volume fraction] 24.3 % Low 39.0-55.0 [facility] Comment on above: Performed By: #### L [id number] ####[facility] ([facility])[address] [place] [address] Hemoglobin (Bld) [Mass/Vol] 7.8 g/dL Low 13.0-17.0 [facility] Comment on above: Performed By: #### L [id number] ####[facility] ([facility])[address] [place] [address] MCH (RBC) [Entitic mass] 27.5 pg Normal 27.0-33.0 [facility] Comment on above: Performed By: #### L [id number] ####[facility] ([facility])[address] [place] [address] MCV (RBC) [Entitic vol] 85.6 fL Normal 82.0-98.0 [facility] Comment on above: Performed By: #### L [id number] ####[facility] ([facility])[address] [place] [address] PLATELETS (10*3/UL) IN BLOOD AUTOMATED COUNT 124 10*3/uL Low 150-400 [facility] Comment on above: Performed By: #### L [id number] ####[facility] ([facility])[address] [place] [address] RBC (Bld) [#/Vol] 2.84 10*6/uL Low 4.20-5.70 [facility] Comment on above: Performed By: #### L [id number] ####[facility] ([facility])[address] [place] [address] WBC (Bld) [#/Vol] 3.24 10*3/uL Low 4.00-10.60 [facility] Comment on above: Performed By: #### L [id number] ####[facility] ([facility])[address] [place] [address] COMPREHENSIVE METABOLIC PANE Sridhar 11-05-2023 Albumin [Mass/Vol] 2.9 g/dL Low 3.5-5.7 [facility] Comment on above: Performed By: #### L [id number] ####[facility] ([facility])[address] [place] [address] ALP [Catalytic activity/Vol] 132 U/L High 34-104 [facility] Comment on above: Performed By: #### L [id number] ####[facility] ([facility])[address] [place] [address] ALT [Catalytic activity/Vol] 88 U/L High 7-52 [facility] Comment on above: Performed By: #### L [id number] ####[facility] ([facility])[address] [place] [address] Anion gap [Moles/Vol] 7 mmol/L Normal 7-20 [facility] Comment on above: Performed By: #### L [id number] ####[facility] ([facility])[address] [place] [address] AST [Catalytic activity/Vol] 61 U/L High 13-39 [facility] Comment on above: Performed By: #### L [id number] ####[facility] ([facility])[address] [place] [address] Bilirubin [Mass/Vol] 0.3 mg/dL Normal 0.3-1.[address] [facility] Comment on above: Performed By: #### L [id number] ####[facility] ([facility])[address] [place] [address] Calcium [Mass/Vol] 8.4 mg/dL Low 8.6-10.3 [facility] Comment on above: Performed By: #### L [id number] ####[facility] ([facility])[address] [place] [address] Chloride [Moles/Vol] 104 mmol/L Normal 98-[address] [facility] Comment on above: Performed By: #### L [id number] ####[facility] ([facility])[address] [place] [address] CO2 [Moles/Vol] 26 mmol/L Normal 21-31 [facility] Comment on above: Performed By: #### L [id number] ####[facility] ([facility])[address] [place] [address] Creatinine [Mass/Vol] 0.42 mg/dL Low 0.70-1.30 [facility] Comment on above: Performed By: #### L [id number] ####[facility] ([facility])[address] [place] [address] GLOMERULAR FILTRATION RATE ML/MIN/1.73 SQ M.PREDICTED 111.4 mL/min/1.73m*2 Normal >60.0 [facility] Comment on above: Result Comment: [facility]???s estimated glomerular filtration rate (eGFR) will [...] of individuals. Performed By: #### L [id number] ####[facility] ([facility])[address] [place] [address] Glucose [Mass/Vol] 120 mg/dL High 70-100 [facility] Comment on above: Performed By: #### L [id number] ####[facility] ([facility])[address] [place] [address] Potassium [Moles/Vol] 3.4 mmol/L Low 3.5-5.1 [facility] Comment on above: Performed By: #### L [id number] ####[facility] ([facility])[address] [place] [address] Protein [Mass/Vol] 5.6 g/dL Low 6.0-8.3 [facility] Comment on above: Performed By: #### L [id number] ####[facility] ([facility])[address] [place] [address] Sodium [Moles/Vol] 134 mmol/L Low 136-145 [facility] Comment on above: Performed By: #### L [id number] ####[facility] ([facility])[address] [place] [address] Urea nitrogen [Mass/Vol] 9 mg/dL Normal 7-25 [facility] Comment on above: Performed By: #### L [id number] ####[facility] ([facility])[address] [place] [address] UREA NITROGEN/CREATININE (MASS RATIO) IN SER/PLAS 21.4 Normal [facility] Comment on above: Performed By: #### L [id number] ####[facility] ([facility])[address] [place] [address] CONSULTon 11-05-2023 CONSULT Normal [facility] POCT GLUCOSE METER UNSOLICIT ED RESULTSon 11-05-2023 Glucose [Mass/Vol] 119 mg/dL High 70-105 [facility] Comment on above: Order Comment: Waive d Testing in the ED is performed under the ED CLIA certificate #[id number]. Result Comment: [email or web address] Performed By: #### L [id number] ####[facility] ([facility])[address] [place] [address] Glucose [Mass/Vol] 213 mg/dL High 70-105 [facility] Comment on above: Order Comment: Waive d Testing in the ED is performed under the ED CLIA certificate #[id number]. Result Comment: [email or web address] Performed By: #### L [id number] ####[facility] ([facility])[address] [place] [address] Glucose [Mass/Vol] 163 mg/dL High 70-105 [facility] Comment on above: Order Comment: Waive d Testing in the ED is performed under the ED CLIA certificate #[id number]. Result Comment: [email or web address] Performed By: #### L [id number] ####[facility] ([facility])[address] [place] [address] Glucose [Mass/Vol] 106 mg/dL High 70-105 [facility] Comment on above: Order Comment: Waive d Testing in the ED is performed under the ED CLIA certificate #[id number]. Result Comment: [email or web address] Performed By: #### L [id number] ####[facility] ([facility])[address] [place] [address] VANCOMYCIN, TROUGHon 024 VANCOMYCIN (UG/ML) IN SER/PLAS - TROUGH 11.5 ug/mL Normal 5.0-20.0 [facility] Comment on above: Order Comment: Pleas e draw one hour before vancomycin infusion Performed By: #### L [id number] ####[facility] ([facility])[address] [place] [address] 30on 11-04-2023 30 [facility] 30 [facility] 36on 11-04-2023 36 Yes. Patient can kenia l us after surgery to reschedule an appointment [facility] 36 Pt canceled appt on 11/09/23 due to patient having surgery today. would like to know if he need to reschedule? [facility] ANESon 11-04-2023 ANES Normal [facility] ANES [facility] APTTon 11-04-2023 ACTIVATED PARTIAL THROMBOPLASTIN TIME IN PPP BY COAGULATION ASSAY 80.2 Seconds High 25.0-35.0 [facility] Comment on above: Order Comment: Check aPTT every 6 hours while on heparin infusion, or per protocol. Result Comment: Clin ical significance of the APTT is questionable in the presence of heparin. Performed By: #### L [id number] ####[facility] ([facility])[address] [place] [address] CBCon 11-04-2023 Erythrocyte distribution width (RBC) [Ratio] 16.5 % High 11.5-15.0 [facility] Comment on above: Performed By: #### L [id number] ####[facility] ([facility])[address] [place] [address] ERYTHROCYTE MEAN CORPUSCULAR HEMOGLOBIN CONCENTRATION (G/DL) BY AUTOMATED 31.5 g/dL Low 32.0-35.0 [facility] Comment on above: Performed By: #### L [id number] ####[facility] ([facility])[address] [place] [address] Hematocrit (Bld) [Volume fraction] 24.1 % Low 39.0-55.0 [facility] Comment on above: Performed By: #### L [id number] ####[facility] ([facility])[address] [place] [address] Hemoglobin (Bld) [Mass/Vol] 7.6 g/dL Low 13.0-17.0 [facility] Comment on above: Performed By: #### L [id number] ####[facility] ([facility])[address] [place] [address] MCH (RBC) [Entitic mass] 27.0 pg Normal 27.0-33.0 [facility] Comment on above: Performed By: #### L [id number] ####[facility] ([facility])[address] [place] [address] MCV (RBC) [Entitic vol] 85.5 fL Normal 82.0-98.0 [facility] Comment on above: Performed By: #### L [id number] ####[facility] ([facility])[address] [place] [address] PLATELETS (10*3/UL) IN BLOOD AUTOMATED COUNT 132 10*3/uL Low 150-400 [facility] Comment on above: Performed By: #### L [id number] ####[facility] ([facility])[address] [place] [address] RBC (Bld) [#/Vol] 2.82 10*6/uL Low 4.20-5.70 [facility] Comment on above: Performed By: #### L [id number] ####[facility] ([facility])[address] [place] [address] WBC (Bld) [#/Vol] 4.29 10*3/uL Normal 4.00-10.60 [facility] Comment on above: Performed By: #### L [id number] ####[facility] ([facility])[address] [place] [address] COMPREHENSIVE METABOLIC PANE Sridhar 11-04-2023 Albumin [Mass/Vol] 2.9 g/dL Low 3.5-5.7 [facility] Comment on above: Performed By: #### L [id number] ####[facility] ([facility])[address] [place] [address] ALP [Catalytic activity/Vol] 116 U/L High 34-104 [facility] Comment on above: Performed By: #### L [id number] ####[facility] ([facility])[address] [place] [address] ALT [Catalytic activity/Vol] 92 U/L High 7-52 [facility] Comment on above: Performed By: #### L [id number] ####[facility] ([facility])[address] [place] [address] Anion gap [Moles/Vol] 9 mmol/L Normal 7-20 [facility] Comment on above: Performed By: #### L [id number] ####[facility] ([facility])[address] [place] [address] AST [Catalytic activity/Vol] 47 U/L High 13-39 [facility] Comment on above: Performed By: #### L [id number] ####[facility] ([facility])[address] [place] [address] Bilirubin [Mass/Vol] 0.4 mg/dL Normal 0.3-1.[address] [facility] Comment on above: Performed By: #### L [id number] ####[facility] ([facility])[address] [place] [address] Calcium [Mass/Vol] 8.1 mg/dL Low 8.6-10.3 [facility] Comment on above: Performed By: #### L [id number] ####[facility] ([facility])[address] [place] [address] Chloride [Moles/Vol] 100 mmol/L Normal 98-[address] [facility] Comment on above: Performed By: #### L [id number] ####[facility] ([facility])[address] [place] [address] CO2 [Moles/Vol] 25 mmol/L Normal 21-31 [facility] Comment on above: Performed By: #### L [id number] ####[facility] ([facility])[address] [place] [address] Creatinine [Mass/Vol] 0.37 mg/dL Low 0.70-1.30 [facility] Comment on above: Performed By: #### L [id number] ####[facility] ([facility])[address] [place] [address] GLOMERULAR FILTRATION RATE ML/MIN/1.73 SQ M.PREDICTED 115.8 mL/min/1.73m*2 Normal >60.0 [facility] Comment on above: Result Comment: [facility]???s estimated glomerular filtration rate (eGFR) will [...] of individuals. Performed By: #### L [id number] ####[facility] ([facility])[address] [place] [address] Glucose [Mass/Vol] 111 mg/dL High 70-100 [facility] Comment on above: Performed By: #### L [id number] ####[facility] ([facility])[address] [place] [address] Potassium [Moles/Vol] 3.3 mmol/L Low 3.5-5.1 [facility] Comment on above: Performed By: #### L [id number] ####[facility] ([facility])[address] [place] [address] Protein [Mass/Vol] 5.6 g/dL Low 6.0-8.3 [facility] Comment on above: Performed By: #### L [id number] ####[facility] ([facility])[address] [place] [address] Sodium [Moles/Vol] 131 mmol/L Low 136-145 [facility] Comment on above: Performed By: #### L [id number] ####[facility] ([facility])[address] [place] [address] Urea nitrogen [Mass/Vol] 9 mg/dL Normal 7-25 [facility] Comment on above: Performed By: #### L [id number] ####[facility] ([facility])[address] [place] [address] UREA NITROGEN/CREATININE (MASS RATIO) IN SER/PLAS 24.3 Normal [facility] Comment on above: Performed By: #### L [id number] ####[facility] ([facility])[address] [place] [address] HISTOLOGY - TISSUE EXAMon LAB AP CASE REPORT Normal [facility] Comment on above: Order Comment: Pre-o p diagnosis:Limb ischemia [I99.8] Result Comment: Surg ical Pathology Case: [id number] Provider: Anjelica Zapata MD Collected: 11/04/2023 1850Ordering Location: [facility] Main Operating Room Received: 11/07/2023 0632Pathologist: MONICA Alanpecimen: Leg, 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 Leg. Normal [facility] Comment on above: Order Comment: Pre-o p diagnosis:Limb ischemia [I99.8] Result Comment: Rece ived in formalin is a container labeled Max Sanchez, LEFT LOWER LEG - BELOW KNEE [...] as follows:A1: Skin and soft tissue margin, advertising account representative sectionA2: Bone marrow, tibial marginA3: Great toe, advertising account representative longitudinal section after decalcificationA4: Areas of erythematous erosion, advertising account representative sectionsA5: Anterior tibial artery, advertising account representative cross sectionsA6: Posterior tibial artery, advertising account representative cross sectionsA7: Dorsalis pedis artery, advertising account representative cross section Shani Smyth, Student Fellow Performed By: #### L [id number] ####[facility] (BEAKER)[address] [facility] [place] [address] LAB AP MICROSCOPIC DESCRIPTION Microscopic examination performed. [facility] Comment on above: Order Comment: Pre-o p diagnosis:Limb ischemia [I99.8] Performed By: #### L [id number] ####[facility] (BEAKER)[address] [facility] 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 - Necrotic bone and soft tissues. - Soft tissue resection margin viable. - Bone marrow margin free of acute inflammation. - Arterial artheromatous plaques with calcification. Performed By: #### L [id number] ####[facility] ([facility])[address] [place] [address] NURSNOTEon 11-04-2023 NURSNOTE Tubular Splitting Machine Tender asked night surgery/vascular MD if heparin gtt needs to be held at [address] Rubina PA-C said the heparin drip will be turned off 1 to 2 hours before the procedure due to heparin's short half-life. Normal [facility] OPNOTEon 11-04-2023 OPNOTE Normal [facility] OSMOLALITY, URINEon 11-04-19 24 OSMOLALITY, URINE 383 mOsm/kg Normal 80-1300 [facility] Comment on above: Result Comment: Test Performed by [facility] [address] [place] [id number] - Released 11/04/2023 16:39 Performed By: #### L [id number] ####[employer] [id number] [place] [address] POCT GLUCOSE METER UNSOLICIT ED RESULTSon 11-04-2023 Glucose [Mass/Vol] 117 mg/dL High 70-105 [facility] Comment on above: Order Comment: Waive d Testing in the ED is performed under the ED CLIA certificate #[id number]. Result Comment: [email or web address] Performed By: #### L [id number] ####[facility] ([facility])[address] [place] [address] Glucose [Mass/Vol] 118 mg/dL High 70-105 [facility] Comment on above: Order Comment: Waive d Testing in the ED is performed under the ED CLIA certificate #[id number]. Result Comment: [email or web address] Performed By: #### L [id number] ####[facility] ([facility])[address] [place] [address] Glucose [Mass/Vol] 131 mg/dL High 70-105 [facility] Comment on above: Order Comment: Waive d Testing in the ED is performed under the ED CLIA certificate #[id number]. Result Comment: [email or web address] Performed By: #### L [id number] ####[facility] ([facility])[address] [place] [address] SODIUM, URINE, RANDOMon 10-11 Sodium (U) [Moles/Vol] 86 mmol/L [facility]: Performed By: #### L [id number] ####[facility] ([facility])[address] [address] TYPE AND SCREENon 11-04-2023 AB SCREEN Negative Normal [facility] Comment on above: Performed By: #### L [id number] ####[facility]OD [facility], ABO group Nom (Bld) O Normal [facility] Comment on above: Performed By: #### L [id number] ####[facility], RH TYPE IN BLOOD Positive Normal [facility] Comment on above: Performed By: #### L [id number] ####[facility], Telephoneon 11-04-2023 Telephone Normal [facility] 30on 11-03-2023 30 Normal [facility] APTTon 11-03-2023 ACTIVATED PARTIAL THROMBOPLASTIN TIME IN PPP BY COAGULATION ASSAY 72.3 Seconds High 25.0-35.0 [facility] Comment on above: Order Comment: Check aPTT every 6 hours while on heparin infusion, or per protocol. Result Comment: Clin ical significance of the APTT is questionable in the presence of heparin. Performed By: #### L [id number] ####[facility] ([facility])[address] [place] [address] ACTIVATED PARTIAL THROMBOPLASTIN TIME IN PPP BY COAGULATION ASSAY 75.8 Seconds High 25.0-35.0 [facility] Comment on above: Order Comment: Check aPTT every 6 hours while on heparin infusion, or per protocol. Result Comment: Clin ical significance of the APTT is questionable in the presence of heparin. Performed By: #### L [id number] ####[facility] ([facility])[address] [place] [address] ACTIVATED PARTIAL THROMBOPLASTIN TIME IN PPP BY COAGULATION ASSAY 84.3 Seconds High 25.0-35.0 [facility] Comment on above: Order Comment: Check aPTT every 6 hours while on heparin infusion, or per protocol. Result Comment: Clin ical significance of the APTT is questionable in the presence of heparin. Performed By: #### L [id number] ####[facility] ([facility])[address] [place] [address] BASIC METABOLIC PANELon 10-11 Anion gap [Moles/Vol] 8 mmol/L Normal 7-20 [facility] Comment on above: Performed By: #### L [id number] ####[facility] ([facility])[address] [place] [address] Calcium [Mass/Vol] 8.7 mg/dL Normal 8.6-10.3 [facility] Comment on above: Performed By: #### L [id number] ####[facility] ([facility])[address] [place] [address] Chloride [Moles/Vol] 98 mmol/L Normal 98-[address] [facility] Comment on above: Performed By: #### L [id number] ####[facility] ([facility])[address] [place] [address] CO2 [Moles/Vol] 27 mmol/L Normal 21-31 [facility] Comment on above: Performed By: #### L [id number] ####[facility] ([facility])[address] [place] [address] Creatinine [Mass/Vol] 0.41 mg/dL Low 0.70-1.30 [facility] Comment on above: Performed By: #### L [id number] ####[facility] ([facility])[address] [place] [address] GLOMERULAR FILTRATION RATE ML/MIN/1.73 SQ M.PREDICTED 112.2 mL/min/1.73m*2 Normal >60.0 [facility] Comment on above: Result Comment: [facility]???s estimated glomerular filtration rate (eGFR) will [...] of individuals. Performed By: #### L [id number] ####[facility] ([facility])[address] [place] [address] Glucose [Mass/Vol] 102 mg/dL High 70-100 [facility] Comment on above: Performed By: #### L [id number] ####[facility] ([facility])[address] [place] [address] Potassium [Moles/Vol] 3.3 mmol/L Low 3.5-5.1 [facility] Comment on above: Performed By: #### L [id number] ####[facility] ([facility])[address] [place] [address] Sodium [Moles/Vol] 130 mmol/L Low 136-145 [facility] Comment on above: Performed By: #### L [id number] ####[facility] ([facility])[address] [place] [address] Urea nitrogen [Mass/Vol] 12 mg/dL Normal 7-25 [facility] Comment on above: Performed By: #### L [id number] ####[facility] ([facility])[address] [place] [address] UREA NITROGEN/CREATININE (MASS RATIO) IN SER/PLAS 29.3 Normal [facility] Comment on above: Performed By: #### L [id number] ####[facility] ([facility])[address] [place] [address] CBCon 11-03-2023 Erythrocyte distribution width (RBC) [Ratio] 16.6 % High 11.5-15.0 [facility] Comment on above: Performed By: #### L [id number] ####[facility] ([facility])[address] [place] [address] ERYTHROCYTE MEAN CORPUSCULAR HEMOGLOBIN CONCENTRATION (G/DL) BY AUTOMATED 31.6 g/dL Low 32.0-35.0 [facility] Comment on above: Performed By: #### L [id number] ####[facility] ([facility])[address] [place] [address] Hematocrit (Bld) [Volume fraction] 27.2 % Low 39.0-55.0 [facility] Comment on above: Performed By: #### L [id number] ####[facility] ([facility])[address] [place] [address] Hemoglobin (Bld) [Mass/Vol] 8.6 g/dL Low 13.0-17.0 [facility] Comment on above: Performed By: #### L [id number] ####[facility] ([facility])[address] [place] [address] MCH (RBC) [Entitic mass] 26.5 pg Low 27.0-33.0 [facility] Comment on above: Performed By: #### L [id number] ####[facility] ([facility])[address] [place] [address] MCV (RBC) [Entitic vol] 83.7 fL Normal 82.0-98.0 [facility] Comment on above: Performed By: #### L [id number] ####[facility] ([facility])[address] [place] [address] PLATELETS (10*3/UL) IN BLOOD AUTOMATED COUNT 157 10*3/uL Normal 150-400 [facility] Comment on above: Performed By: #### L [id number] ####[facility] ([facility])[address] [place] [address] RBC (Bld) [#/Vol] 3.25 10*6/uL Low 4.20-5.70 [facility] Comment on above: Performed By: #### L [id number] ####[facility] ([facility])[address] [place] [address] WBC (Bld) [#/Vol] 5.95 10*3/uL Normal 4.00-10.60 [facility] Comment on above: Performed By: #### L [id number] ####[facility] ([facility])[address] [place] [address] CONSULTon 11-03-2023 CONSULT Normal [facility] DIGOXIN LEVELon 11-03-2023 DIGOXIN (NG/ML) IN SER/PLAS 0.5 ng/mL Low 0.7-2 [facility] Comment on above: Performed By: #### L [id number] ####[facility] ([facility])[address] [place] [address] FERRITINon 11-03-2023 FERRITIN (NG/ML) IN SER/PLAS 79.0 ng/mL Normal 24.0-336.0 [facility] Comment on above: Performed By: #### L [id number] ####[facility] ([facility])[address] [place] [address] FOLATEon 11-03-2023 FOLATE (NG/ML) IN SER/PLAS 11.28 ng/mL Normal 6.6-1000 [facility] Comment on above: Performed By: #### L [id number] ####[facility] ([facility])[address] [place] [address] IRON AND TIBCon 11-03-2023 IRON (UG/DL) IN SER/PLAS 12 ug/dL Low 50-212 [facility] Comment on above: Performed By: #### L [id number] ####[facility] ([facility])[address] [place] [address] IRON BINDING CAPACITY (UG/DL) IN SER/PLAS 277 ug/dL Normal 250-450 [facility] Comment on above: Performed By: #### L [id number] ####[facility] ([facility])[address] [place] [address] IRON BINDING CAPACITY.UNSATURATED (UG/DL) IN SER/PLAS 265.0 ug/dL Normal 155.0-355.0 [facility] Comment on above: Performed By: #### L [id number] ####[facility] ([facility])[address] [place] [address] IRON SATURATION (%) IN SER/PLAS 4 % Low 20-50 [facility] Comment on above: Performed By: #### L [id number] ####[facility] ([facility])[address] [place] [address] NURSNOTEon 11-03-2023 NURSNOTE Normal [facility] OSMOLALITYon 11-03-2023 OSMOLALITY MEASURED 281 mOsm/kg Normal 275-[address] [facility] Comment on above: Order Comment: Add o n Result Comment: Test Performed by [facility] [place] [address] - Released 11/03/2023 17:29 Performed By: #### L [id number] ####[employer] [id number] [place] [address] POCT GLUCOSE METER UNSOLICIT ED RESULTSon 11-03-2023 Glucose [Mass/Vol] 147 mg/dL High 70-105 [facility] Comment on above: Order Comment: Waive d Testing in the ED is performed under the ED CLIA certificate #[id number]. Result Comment: [email or web address] Performed By: #### L [id number] ####[facility] ([facility])[address] [place] [address] Glucose [Mass/Vol] 201 mg/dL High 70-105 [facility] Comment on above: Order Comment: Waive d Testing in the ED is performed under the ED CLIA certificate #[id number]. Result Comment: [email or web address] Performed By: #### L [id number] ####[facility] ([facility])[address] [place] [address] Glucose [Mass/Vol] 243 mg/dL High 70-105 [facility] Comment on above: Order Comment: Waive d Testing in the ED is performed under the ED CLIA certificate #[id number]. Result Comment: [email or web address] Performed By: #### L [id number] ####[facility] ([facility])[address] [facility] [address] Glucose [Mass/Vol] 118 mg/dL High 70-105 [facility] Comment on above: Order Comment: Waive d Testing in the ED is performed under the ED CLIA certificate #[id number]. Result Comment: [email or web address] Performed By: #### L [id number] ####[facility] ([facility])[address] [facility] [address] Glucose [Mass/Vol] 112 mg/dL High 70-105 [facility] Comment on above: Order Comment: Waive d Testing in the ED is performed under the ED CLIA certificate #[id number]. Result Comment: [email or web address] Performed By: #### L [id number] ####[facility] ([facility])[address] [facility] [place] [address] VITAMIN B12on 11-03-2023 Cobalamin (Vitamin B12) [Mass/Vol] 1448 pg/mL High 180-914 [facility] Comment on above: Result Comment: REFE RENCE RANGES:180-914 pg/mL [id number] pg/mL Indeterminate<145 pg/mL Deficient Performed By: #### L [id number] ####[facility] ([facility])[address] [facility] [address] 36on 11-02-2023 36 Spoke with Sonia Dey and Ije[employer]. Asking about maintaining the line. Asked for them to flush until his appt. states they are seeing vascular today and they hope he is admitted for an amputation. [facility] 36 Spoke with [facility] stated for the pt to maintain his line and flush it until his upcoming appt 11/09 [facility] CBC WITH AUTO DIFFERENTIALon 11-02-2023 Basophils (Bld) [#/Vol] 0.01 10*3/uL Normal 0.00-0.20 [facility] Comment on above: Performed By: #### L [id number] ####[facility] ([facility])[address] [place] [address] Basophils/100 WBC (Bld) 0.1 % Normal 0.0-1.0 [facility] Comment on above: Performed By: #### L [id number] ####[facility] ([facility])[address] [place] [address] Eosinophils (Bld) [#/Vol] 0.01 10*3/uL Normal 0.00-0.50 [facility] Comment on above: Performed By: #### L [id number] ####[facility] ([facility])[address] [place], [place] [address] Eosinophils/100 WBC (Bld) 0.1 % Normal 0.0-6.0 [facility] Comment on above: Performed By: #### L [id number] ####[facility] ([facility])[address] [place] [address] Erythrocyte distribution width (RBC) [Ratio] 16.7 % High 11.5-15.0 [facility] Comment on above: Performed By: #### L [id number] ####[facility] ([facility])[address] [place] [address] ERYTHROCYTE MEAN CORPUSCULAR HEMOGLOBIN CONCENTRATION (G/DL) BY AUTOMATED 32.6 g/dL Normal 32.0-35.0 [facility] Comment on above: Performed By: #### L [id number] ####[facility] ([facility])[address] [place] [address] Hematocrit (Bld) [Volume fraction] 27.3 % Low 39.0-55.0 [facility] Comment on above: Performed By: #### L [id number] ####[facility] ([facility])[address] [place] [address] Hemoglobin (Bld) [Mass/Vol] 8.9 g/dL Low 13.0-17.0 [facility] Comment on above: Performed By: #### L [id number] ####[facility] ([facility])[address] [place] [address] Immature granulocytes (Bld) [#/Vol] 0.04 10*3/uL Normal 0.00-0.20 [facility] Comment on above: Performed By: #### L [id number] ####[facility] ([facility])[address] [place] [address] Immature granulocytes/100 WBC (Bld) 0.6 % Normal 0.0-1.0 [facility] Comment on above: Performed By: #### L [id number] ####[facility] ([facility])[address] [place] [address] Lymphocytes (Bld) [#/Vol] 0.32 10*3/uL Low 1.20-4.00 [facility] Comment on above: Performed By: #### L [id number] ####[facility] ([facility])[address] [place] [address] Lymphocytes/100 WBC (Bld) 4.6 % Low 20.0-45.0 [facility] Comment on above: Performed By: #### L [id number] ####[facility] ([facility])[address] [place] [address] MCH (RBC) [Entitic mass] 27.2 pg Normal 27.0-33.0 [facility] Comment on above: Performed By: #### L [id number] ####[facility] ([facility])[address] [place] [address] MCV (RBC) [Entitic vol] 83.5 fL Normal 82.0-98.0 [facility] Comment on above: Performed By: #### L [id number] ####[facility] ([facility])[address] [place] [address] Monocytes (Bld) [#/Vol] 0.96 10*3/uL Normal 0.10-1.00 [facility] Comment on above: Performed By: #### L [id number] ####[facility] ([facility])[address] [place] [address] Monocytes/100 WBC (Bld) 13.7 % High 5.0-12.0 [facility] Comment on above: Performed By: #### L [id number] ####[facility] ([facility])[address] [place] [address] Neutrophils (Bld) [#/Vol] 5.66 10*3/uL Normal 1.60-7.60 [facility] Comment on above: Performed By: #### L [id number] ####[facility] ([facility])[address] [place] [address] Neutrophils/100 WBC (Bld) 80.9 % High 40.0-72.0 [facility] Comment on above: Performed By: #### L [id number] ####[facility] ([facility])[address] [place] [address] NRBC (PER 100 WBCS) BY AUTOMATED COUNT 0.0 % Normal 0 [facility] Comment on above: Performed By: #### L [id number] ####[facility] ([facility])[address] [place] [address] PLATELETS (10*3/UL) IN BLOOD AUTOMATED COUNT 165 10*3/uL Normal 150-400 [facility] Comment on above: Performed By: #### L [id number] ####[facility] ([facility])[address] [place] [address] RBC (Bld) [#/Vol] 3.27 10*6/uL Low 4.20-5.70 [facility] Comment on above: Performed By: #### L [id number] ####[facility] ([facility])[address] [place] [address] WBC (Bld) [#/Vol] 7.00 10*3/uL Normal 4.00-10.60 [facility] Comment on above: Performed By: #### L [id number] ####[facility] ([facility])[address] [place] [address] COMPREHENSIVE METABOLIC PANE Sridhar 11-02-2023 Albumin [Mass/Vol] 3.1 g/dL Low 3.5-5.7 [facility] Comment on above: Performed By: #### L [id number] ####[facility] ([facility])[address] [place] [address] ALP [Catalytic activity/Vol] 159 U/L High 34-104 [facility] Comment on above: Performed By: #### L [id number] ####[facility] ([facility])[address] [place] [address] ALT [Catalytic activity/Vol] 157 U/L High 7-52 [facility] Comment on above: Performed By: #### L [id number] ####[facility] ([facility])[address] [place] [address] Anion gap [Moles/Vol] 8 mmol/L Normal 7-20 [facility] Comment on above: Performed By: #### L [id number] ####[facility] ([facility])[address] [place] [address] AST [Catalytic activity/Vol] 102 U/L High 13-39 [facility] Comment on above: Performed By: #### L [id number] ####[facility] ([facility])[address] [place] [address] Bilirubin [Mass/Vol] 0.5 mg/dL Normal 0.3-1.[address] [facility] Comment on above: Performed By: #### L [id number] ####[facility] ([facility])[address] [place] [address] Calcium [Mass/Vol] 8.6 mg/dL Normal 8.6-10.3 [facility] Comment on above: Performed By: #### L [id number] ####[facility] ([facility])[address] [place] [address] Chloride [Moles/Vol] 93 mmol/L Low 98-[address] [facility] Comment on above: Performed By: #### L [id number] ####[facility] ([facility])[address] [place] [address] CO2 [Moles/Vol] 30 mmol/L Normal 21-31 [facility] Comment on above: Performed By: #### L [id number] ####[facility] ([facility])[address] [place] [address] Creatinine [Mass/Vol] 0.49 mg/dL Low 0.70-1.30 [facility] Comment on above: Performed By: #### L [id number] ####[facility] ([facility])[address] [place] [address] GLOMERULAR FILTRATION RATE ML/MIN/1.73 SQ M.PREDICTED 106.4 mL/min/1.73m*2 Normal >60.0 [facility] Comment on above: Result Comment: [facility]???s estimated glomerular filtration rate (eGFR) will [...] of individuals. Performed By: #### L [id number] ####[facility] ([facility])[address] [place] [address] Glucose [Mass/Vol] 128 mg/dL High 70-100 [facility] Comment on above: Performed By: #### L [id number] ####[facility] ([facility])[address] [place] [address] Potassium [Moles/Vol] 3.5 mmol/L Normal 3.5-5.1 [facility] Comment on above: Performed By: #### L [id number] ####[facility] ([facility])[address] [place] [address] Protein [Mass/Vol] 6.5 g/dL Normal 6.0-8.3 [facility] Comment on above: Performed By: #### L [id number] ####[facility] ([facility])[address] [place] [address] Sodium [Moles/Vol] 127 mmol/L Low 136-145 [facility] Comment on above: Performed By: #### L [id number] ####[facility] ([facility])[address] [place] [address] Urea nitrogen [Mass/Vol] 11 mg/dL Normal 7-25 [facility] Comment on above: Performed By: #### L [id number] ####[facility] ([facility])[address] [place] [address] UREA NITROGEN/CREATININE (MASS RATIO) IN SER/PLAS 22.4 [facility] Comment on above: Performed By: #### L [id number] ####[facility] ([facility])[address] [place] [address] Follow-Upon 11-02-2023 Follow-Up [facility] HPon 11-02-2023 HP Normal [facility] MAGNESIUMon 11-02-2023 Magnesium [Mass/Vol] 1.9 mg/dL Normal 1.9-2.[address] [facility] Comment on above: Performed By: #### L [id number] ####[facility] ([facility])[address] [place] [address] PHOSPHORUSon 11-02-2023 Magnesium [Mass/Vol] 3.2 mg/dL Normal 2.5-5.[address] [facility] Comment on above: Performed By: #### L [id number] ####[facility] ([facility])[address] [place] [address] POCT GLUCOSE METER UNSOLICIT ED RESULTSon 11-02-2023 Glucose [Mass/Vol] 159 mg/dL High 70-105 [facility] Comment on above: Order Comment: Waive d Testing in the ED is performed under the ED CLIA certificate #[id number]. Result Comment: [email or web address] Performed By: #### L [id number] ####[facility] ([facility])[address] [place] [address] 36on 11-01-2023 36 LM attempted to call patient no answer so left a message for patient to call us back we could see him today with javier at 1045/11 or tomorrow with chauncey at 130 Normal [facility] Orders Onlyon 10-27-2023 Orders Only Normal [facility] BLOOD UREA NITROGENon 2023 Urea nitrogen [Mass/Vol] 15 mg/dL Normal 5-27 [facility] Comment on above: Performed By: #### C RT, CBCA, 4092-3, 3094-0 #### [facility] ([id number]) [address] [place] [address] 70873 CBC AND AUTO DIFFon 10-26-19 24 ABSOLUTE BASOPHIL 0.0 X10E9/L Normal 0.0-0.2 [facility] Comment on above: Performed By: #### C RT, CBCA, 4092-3, 3094-0 #### [facility] ([id number]) [address] [place] [address] 07091 ABSOLUTE NEUTROPHIL 4.3 X10E9/L Normal 1.5-6.6 [facility] Comment on above: Performed By: #### C RT, CBCA, 4092-3, 3094-0 #### [facility] ([id number]) [address] [place] [address] 87801 Basophils/100 WBC (Bld) 0.4 % Normal [facility] Comment on above: Performed By: #### C RT, CBCA, 4092-3, 3094-0 #### [facility] ([id number]) [address] [place] [address] 70396 Eosinophils (Bld) [#/Vol] 0.0 10*3/uL Normal 0.0-0.4 [facility] Comment on above: Performed By: #### C RT, CBCA, 4092-3, 3094-0 #### [facility] ([id number]) [address] [place] [address] 01927 Eosinophils/100 WBC (Bld) 0.6 % Normal [facility] Comment on above: Performed By: #### C RT, CBCA, 3, 3094-0 #### [facility] ([id number]) [address] [place] [address] 56506 Erythrocyte distribution width (RBC) [Ratio] 18.5 % High 11.5-15.0 [facility] Comment on above: Performed By: #### C RT, CBCA, 4091-12, 3094-0 #### [facility] ([id number]) [address] [place] [address] 08140 Hematocrit (Bld) [Volume fraction] 28.0 % Low 39-49 [facility] Comment on above: Performed By: #### C RT, CBCA, 4091-12, 3094-0 #### [facility] ([id number]) [address] [place] [address] 03109 Hemoglobin (Bld) [Mass/Vol] 9.1 g/dL Low 13.0-17.0 [facility] Comment on above: Performed By: #### C RT, CBCA, 4091-12, 3094-0 #### [facility] ([id number]) [address] [place] [address] 47449 Lymphocytes (Bld) [#/Vol] 0.3 10*3/uL Low 1.0-3.5 [facility] Comment on above: Performed By: #### C RT, CBCA, 4091-12, 3094-0 #### [facility] ([id number]) [address] [place] [address] 11692 Lymphocytes/100 WBC (Bld) 5.4 % Normal [facility] Comment on above: Performed By: #### C RT, CBCA, 4091-12, 3094-0 #### [facility] ([id number]) [address] [place] [address] 80072 MCH (RBC) [Entitic mass] 27.0 pg Normal 27-34 [facility] Comment on above: Performed By: #### C RT, CBCA, 4091-12, 3094-0 #### [facility] ([id number]) [address] [place] [address] 33473 MCHC (RBC) [Mass/Vol] 32.5 g/dL Normal 32-36 [facility] Comment on above: Performed By: #### C RT, CBCA, 4091-12, 3094-0 #### [facility] ([id number]) [address] [place] [address] 76530 MCV (RBC) [Entitic vol] 83 fL Normal 80-100 [facility] Comment on above: Performed By: #### C RT, CBCA, 4091-12, 3094-0 #### [facility] ([id number]) [address] [place] [address] 35760 Monocytes (Bld) [#/Vol] 0.7 10*3/uL Normal 0-0.9 [facility] Comment on above: Performed By: #### C RT, CBCA, 4091-12, 3093-0 #### [facility] ([id number]) [address] [place] [address] 63193 Monocytes/100 WBC (Bld) 12.6 % Normal [facility] Comment on above: Performed By: #### C RT, CBCA, 4091-12, 3094-0 #### [facility] ([id number]) [address] [place] [address] 24658 Neutrophils/100 WBC (Bld) 81.0 % Normal [facility] Comment on above: Performed By: #### C RT, CBCA, 4091-3, 3094-0 #### [facility] ([id number]) [address] [place] [address] 42624 Platelet mean volume (Bld) [Entitic vol] 8.2 fL Normal 7-12 [facility] Comment on above: Performed By: #### C RT, CBCA, 4091-3, 3094-0 #### [facility] ([id number]) [address] [place] [address] 84116 Platelets (Bld) [#/Vol] 197 10*3/uL Normal 150-450 [facility] Comment on above: Performed By: #### C RT, CBCA, 4091-3, 3094-0 #### [facility] ([id number]) [address] [place] [address] 21010 RBC COUNT 3.37 X10E12/L Low 4.10-5.70 [facility] Comment on above: Performed By: #### C RT, CBCA, 3, 3094-0 #### [facility] ([id number]) [address] [place] [address] 09122 WBC (Bld) [#/Vol] 5.3 10*3/uL Normal 4.0-11.0 [facility] Comment on above: Performed By: #### C RT, CBCA, 3, 3094-0 #### [facility] ([id number]) [address] [place] [address] 82430 CREATININEon 10-26-2023 Creatinine [Mass/Vol] 0.35 mg/dL Low 0.70-1.20 [facility] Comment on above: Result Comment: METH OD TRACEABLE TO IDMS STANDARD Performed By: #### C RT, CBCA, 4091-3, 3094-0 #### [facility] ([id number]) [address] [place] [address] 92529 eGFR (CKD-EPI) NON-RACE DEPENDENT >90 Normal >59 [facility] Comment on above: Result Comment: Reported eGFR is based on the CKD-EPI 2020 equation that does not use a race coefficient. Performed By: #### C RT, CBCA, 4092-3, 3094-0 #### [facility] ([id number]) [address] [place] [address] 02266 CRP [Mass/Vol]on 10-26-2023 C REACTIVE PROTEIN 4.9 mg/dL High 0.000-0.744 [facility] Comment on above: Performed By: #### C RT, CBCA, 4091-3, 3094-0 #### [facility] ([id number]) [address] [place] [address] 26180 Follow-Upon 10-26-2023 Follow-Up Normal [facility] Vancomycin trough [Mass/Vol] on 10-26-2023 VANCOMYCIN TROUGH 12.4 ug/mL Normal 5.0-20.0 [facility] Comment on above: Performed By: #### C RT, CBCA, 4091-3, 3094-0 #### [facility] ([id number]) [address] [place] [address] 10778 36on 10-20-2023 36 Labs in [facility] an d Verna is adding weekly CRP. Normal [facility] BLOOD UREA NITROGENon 2023 Urea nitrogen [Mass/Vol] 10 mg/dL Normal 5-27 [facility] Comment on above: Performed By: #### C RT, CBCA, 4091-3, 3094-0 #### [facility] ([id number]) [address] [place] [address] 50783 CBC AND AUTO DIFFon 10-19-19 24 ABSOLUTE BASOPHIL 0.0 X10E9/L Normal 0.0-0.2 [facility] Comment on above: Performed By: #### C RT, CBCA, 4091-3, 3094-0 #### [facility] ([id number]) [address] [place] [address] 91518 ABSOLUTE NEUTROPHIL 3.1 X10E9/L Normal 1.5-6.6 [facility] Comment on above: Performed By: #### C RT, CBCA, 4091-3, 3094-0 #### [facility] ([id number]) [address] [place] [address] 58678 Basophils/100 WBC (Bld) 0.4 % Normal [facility] Comment on above: Performed By: #### C RT, CBCA, 4091-12, 3094-0 #### [facility] ([id number]) [address] [place] [address] 39780 Eosinophils (Bld) [#/Vol] 0.0 10*3/uL Normal 0.0-0.4 [facility] Comment on above: Performed By: #### C RT, CBCA, 3, 3094-0 #### [facility] ([id number]) [address] [place] [address] 01478 Eosinophils/100 WBC (Bld) 0.8 % Normal [facility] Comment on above: Performed By: #### C RT, CBCA, 4091-12, 3094-0 #### [facility] ([id number]) [address] [place] [address] 74608 Erythrocyte distribution width (RBC) [Ratio] 17.7 % High 11.5-15.0 [facility] Comment on above: Performed By: #### C RT, CBCA, 4091-, 3094-0 #### [facility] ([id number]) [address] [place] [address] 20250 Hematocrit (Bld) [Volume fraction] 27.3 % Low 39-49 [facility] Comment on above: Performed By: #### C RT, CBCA, 4091-3, 3094-0 #### [facility] ([id number]) [address] [place] [address] 86624 Hemoglobin (Bld) [Mass/Vol] 8.8 g/dL Low 13.0-17.0 [facility] Comment on above: Performed By: #### C RT, CBCA, 4091-3, 3094-0 #### [facility] ([id number]) [address] [place] [address] 21319 Lymphocytes (Bld) [#/Vol] 0.2 10*3/uL Low 1.0-3.5 [facility] Comment on above: Performed By: #### C RT, CBCA, 4091-12, 3094-0 #### [facility] ([id number]) [address] [place] [address] 75047 Lymphocytes/100 WBC (Bld) 6.2 % Normal [facility] Comment on above: Performed By: #### C RT, CBCA, 4091-12, 3094-0 #### [facility] ([id number]) [address] [place] [address] 95190 MCH (RBC) [Entitic mass] 27.1 pg Normal 27-34 [facility] Comment on above: Performed By: #### C RT, CBCA, 4091-12, 3094-0 #### [facility] ([id number]) [address] [place] [address] 90120 MCHC (RBC) [Mass/Vol] 32.2 g/dL Normal 32-36 [facility] Comment on above: Performed By: #### C RT, CBCA, 4091-3, 3094-0 #### [facility] ([id number]) [address] [place] [address] 46890 MCV (RBC) [Entitic vol] 84 fL Normal 80-100 [facility] Comment on above: Performed By: #### C RT, CBCA, 4091-3, 3094-0 #### [facility] ([id number]) [address] [place] [address] 52022 Monocytes (Bld) [#/Vol] 0.5 10*3/uL Normal 0-0.9 [facility] Comment on above: Performed By: #### C RT, CBCA, 4091-3, 3094-0 #### [facility] ([id number]) [address] [place] [address] 51150 Monocytes/100 WBC (Bld) 11.9 % Normal P [facility] Comment on above: Performed By: #### C RT, CBCA, 4091-3, 3094-0 #### [facility] ([id number]) [address] [place] [address] 53635 Neutrophils/100 WBC (Bld) 80.7 % Normal [facility] Comment on above: Performed By: #### C RT, CBCA, 4091-3, 3094-0 #### [facility] ([id number]) [address] [place] [address] 40693 Platelet mean volume (Bld) [Entitic vol] 9.2 fL Normal 7-12 [facility] Comment on above: Performed By: #### C RT, CBCA, 4091-3, 3094-0 #### [facility] ([id number]) [address] [place] [address] 85959 Platelets (Bld) [#/Vol] 109 10*3/uL Low 150-450 [facility] Comment on above: Performed By: #### C RT, CBCA, 4091-3, 3094-0 #### [facility] ([id number]) [address] [place] [address] 86545 RBC COUNT 3.25 X10E12/L Low 4.10-5.70 [facility] Comment on above: Performed By: #### C RT, CBCAbel, 4092-3, 3094-0 #### [facility] ([id number]) [address] [place] [address] 45041 WBC (Bld) [#/Vol] 3.8 10*3/uL Low 4.0-11.0 [facility] Comment on above: Performed By: #### C RT CBCAbel, 4092-3, 3094-0 #### [facility] ([id number]) [address] [place] [address] 33847 CREATININEon 10-19-2023 Creatinine [Mass/Vol] 0.40 mg/dL Low 0.70-1.20 [facility] Comment on above: Result Comment: METH OD TRACEABLE TO IDMS STANDARD Performed By: #### C MIGDALIA BAILEY, 4091-3, 3094-0 #### [facility] ([id number]) [address] [place] [address] 72683 eGFR (CKD-EPI) NON-RACE DEPENDENT >90 Normal >59 [facility] Comment on above: Result Comment: Reported eGFR is based on the CKD-EPI 2020 equation that does not use a race coefficient. Performed By: #### C MIGDALIA BAILEY, 4092-3, 3094-0 #### [facility] ([id number]) [address] [place] [address] 03240 Vancomycin trough [Mass/Vol] on 10-19-2023 VANCOMYCIN TROUGH 12.9 ug/mL Normal 5.0-20.0 [facility] Comment on above: Performed By: #### C RT CBCAbel, 4092-3, 3094-0 #### [facility] ([id number]) [address] [place] [address] 33113 Follow-Upon 10-17-2023 Follow-Up Normal [facility] 36on 10-13-2023 36 Yes, I agree with patient going to ER. He is currently at [facility] in [place]. Thanks!. [facility] 36 Spoke with pt yesterday lab called about a critical lab on Hemoglobin stated to have the pt go to the ER as soon as possible. Labs are in emt intermediate [facility] HEMOGLOBINon 10-13-2023 Hemoglobin (Bld) [Mass/Vol] 8.9 g/dL Low 13.0-17.0 [facility] Comment on above: Performed By: #### C RT, CBCA, 4092-3, 3094-0 #### [facility] ([id number]) [address] [place] [address] 24393 Hematocrit Auto (Bld) [Volum e fraction]on 10-13-2023 Hematocrit (Bld) [Volume fraction] 27.0 % Low 39-49 [facility] Comment on above: Performed By: #### C RT, CBCA, 4091-3, 3094-0 #### [facility] ([id number]) [address] [place] [address] 92236 36on 10-12-2023 36 Spoke with Paula mckeon [facility] about a critical lab of Hemoglobin of 6.3 stated to please call his PCP. I called pt and spoke with his Ijeoma and stated pt needs to go to the ER alessandra. His stated they will go to [facility] in [facility] BLOOD UREA NITROGENon 2023 Urea nitrogen [Mass/Vol] 11 mg/dL Normal 5-27 [facility] Comment on above: Performed By: #### C RT, 4092-3, 3094-0, CBCA #### [facility] ([id number]) [address] [place] [address] 26255 CBC AND AUTO DIFFon 10-12-19 24 ABSOLUTE BASOPHIL 0.0 X10E9/L Normal 0.0-0.2 [facility] Comment on above: Performed By: #### C RT, CBCA, 4092-3, 3094-0 #### [facility] ([id number]) [address] [place] [address] 27529 ABSOLUTE NEUTROPHIL 1.8 X10E9/L Normal 1.5-6.6 [facility] Comment on above: Performed By: #### C RT, CBCA, 3, 3094-0 #### [facility] ([id number]) [address] [place] [address] 84472 Basophils/100 WBC (Bld) 0.6 % Normal [facility] Comment on above: Performed By: #### C RT, CBCA, 4091-12, 3094-0 #### [facility] ([id number]) [address] [place] [address] 97926 Eosinophils (Bld) [#/Vol] 0.0 10*3/uL Normal 0.0-0.4 [facility] Comment on above: Performed By: #### C RT, CBCA, 4091-12, 3094-0 #### [facility] ([id number]) [address] [place] [address] 89714 Eosinophils/100 WBC (Bld) 0.4 % Normal [facility] Comment on above: Performed By: #### C RT, CBCA, 4091-12, 3094-0 #### [facility] ([id number]) [address] [place] [address] 42701 Erythrocyte distribution width (RBC) [Ratio] 18.0 % High 11.5-15.0 [facility] Comment on above: Performed By: #### C RT, CBCA, 4091-12, 3094-0 #### [facility] ([id number]) [address] [place] [address] 18105 Hematocrit (Bld) [Volume fraction] 19.0 % Low 39-49 [facility] Comment on above: Performed By: #### C RT, CBCA, 3, 3094-0 #### [facility] ([id number]) [address] [place] [address] 78420 Hemoglobin (Bld) [Mass/Vol] 6.1 g/dL Critically low 13.0-17.0 [facility] Comment on above: Performed By: #### C RT, CBCA, 3, 3094-0 #### [facility] ([id number]) [address] [place] [address] 30645 Lymphocytes (Bld) [#/Vol] 0.1 10*3/uL Low 1.0-3.5 [facility] Comment on above: Performed By: #### C RT, CBCA, 4091-12, 3094-0 #### [facility] ([id number]) [address] [place] [address] 63575 Lymphocytes/100 WBC (Bld) 5.9 % Normal [facility] Comment on above: Performed By: #### C RT, CBCA, 4091-12, 3094-0 #### [facility] ([id number]) [address] [place] [address] 63830 MCH (RBC) [Entitic mass] 26.8 pg Low 27-34 [facility] Comment on above: Performed By: #### C RT, CBCA, 4091-12, 309-0 #### [facility] ([id number]) [address] [place] [address] 83639 MCHC (RBC) [Mass/Vol] 32.1 g/dL Normal 32-36 [facility] Comment on above: Performed By: #### C RT, CBCA, 3, 3094-0 #### [facility] ([id number]) [address] [place] [address] 39272 MCV (RBC) [Entitic vol] 83 fL Normal 80-100 P [facility] Comment on above: Performed By: #### C RT, CBCA, 3, 3094-0 #### [facility] ([id number]) [address] [place] [address] 13934 Monocytes (Bld) [#/Vol] 0.4 10*3/uL Normal 0-0.9 [facility] Comment on above: Performed By: #### C RT, CBCA, 4091-12, 3094-0 #### [facility] ([id number]) [address] [place] [address] 04401 Monocytes/100 WBC (Bld) 15.7 % Normal [facility] Comment on above: Performed By: #### C RT, CBCA, 4091-12, 3094-0 #### [facility] ([id number]) [address] [place] [address] 36313 Neutrophils/100 WBC (Bld) 77.4 % Normal [facility] Comment on above: Performed By: #### C RT, CBCA, 4091-12, 3094-0 #### [facility] ([id number]) [address] [place] [address] 38371 Platelet mean volume (Bld) [Entitic vol] 9.0 fL Normal 7-12 [facility] Comment on above: Performed By: #### C RT, CBCA, 4091-12, 3094-0 #### [facility] ([id number]) [address] [place] [address] 40880 Platelets (Bld) [#/Vol] 94 10*3/uL Low 150-450 P [facility] Comment on above: Performed By: #### C RT, CBCA, 3, 3094-0 #### [facility] ([id number]) [address] [place] [address] 53749 RBC COUNT 2.29 X10E12/L Low 4.10-5.70 [facility] Comment on above: Performed By: #### C RT, CBCA, 4091-3, 3094-0 #### [facility] ([id number]) [address] [place] [address] 70118 WBC (Bld) [#/Vol] 2.4 10*3/uL Low 4.0-11.0 [facility] Comment on above: Performed By: #### C RT, CBCA, 4091-3, 3094-0 #### [facility] ([id number]) [address] [place] [address] 99005 Eosinophils/100 WBC (Bld) 0.9 % Normal [facility] Comment on above: Performed By: #### C RT, CBCA, 4091-3, 3094-0 #### [facility] ([id number]) [address] [place] [address] 25214 Erythrocyte distribution width (RBC) [Ratio] 17.6 % High 11.5-15.0 [facility] Comment on above: Performed By: #### C RT, CBCA, 4091-, 3094-0 #### [facility] ([id number]) [address] [place] [address] 31710 Hematocrit (Bld) [Volume fraction] 19.5 % Low 39-49 [facility] Comment on above: Performed By: #### C RT, CBCA, 4091-3, 3094-0 #### [facility] ([id number]) [address] [place] [address] 04907 Hemoglobin (Bld) [Mass/Vol] 6.3 g/dL Critically low 13.0-17.0 [facility] Comment on above: Performed By: #### C RT, CBCA, 4091-3, 3094-0 #### [facility] ([id number]) [address] [place] [address] 11182 Lymphocytes/100 WBC (Bld) 3.8 % Normal [facility] Comment on above: Performed By: #### C RT, CBCA, 4091-3, 3094-0 #### [facility] ([id number]) [address] [place] [address] 76096 MCH (RBC) [Entitic mass] 26.6 pg Low 27-34 [facility] Comment on above: Performed By: #### C RT, CBCA, 4091-3, 3094-0 #### [facility] ([id number]) [address] [place] [address] 85421 Monocytes (Bld) [#/Vol] 0.2 10*3/uL Normal 0-0.9 [facility] Comment on above: Performed By: #### C RT, CBCA, 4091-12, 3094-0 #### [facility] ([id number]) [address] [place] [address] 63762 Monocytes/100 WBC (Bld) 10.4 % Normal [facility] Comment on above: Performed By: #### C RT, CBCA, 4091-12, 3094-0 #### [facility] ([id number]) [address] [place] [address] 11311 Neutrophils (Bld) [#/Vol] 1.7 10*3/uL Normal 1.5-6.6 [facility] Comment on above: Performed By: #### C RT, CBCA, 4091-3, 3094-0 #### [facility] ([id number]) [address] [place] [address] 87875 OVALOCYTE 2+ Abnormal NONE [facility] Comment on above: Performed By: #### C RT, CBCA, 4091-3, 3094-0 #### [facility] ([id number]) [address] [place] [address] 30913 Platelet mean volume (Bld) [Entitic vol] 8.8 fL Normal 7-12 [facility] Comment on above: Performed By: #### C RT, CBCA, 4091-3, 3094-0 #### [facility] ([id number]) [address] [place] [address] 07366 Platelets (Bld) [#/Vol] 87 10*3/uL Low 150-450 P [facility] Comment on above: Performed By: #### C RT, CBCA, 4091-3, 3094-0 #### [facility] ([id number]) [address] [place] [address] 62793 RBC COUNT 2.35 X10E12/L Low 4.10-5.70 [facility] Comment on above: Performed By: #### C RT, CBCA, 4091-3, 3094-0 #### [facility] ([id number]) [address] [place] [address] 14894 SEG NEUTROPHIL 84.9 % Normal [facility] Comment on above: Performed By: #### C RT, CBCA, 4091-3, 3094-0 #### [facility] ([id number]) [address] [place] [address] 86035 TEARDROP 1+ Abnormal NONE [facility] Comment on above: Performed By: #### C RT, CBCA, 4091-3, 3094-0 #### [facility] ([id number]) [address] [place] [address] 18538 WBC (Bld) [#/Vol] 2.0 10*3/uL Low 4.0-11.0 [facility] Comment on above: Performed By: #### C RT, CBCA, 409-3, 3094-0 #### [facility] ([id number]) [address] [place] [address] 77626 COMPREHENSIVE METABOLIC PANE Sridhar 10-12-2023 Albumin [Mass/Vol] 2.6 g/dL Low 3.2-5.3 [facility] Comment on above: Performed By: #### C , CBCA, 4091-3, 3094-0 #### [facility] ([id number]) [address] [place] [address] 81863 ALP [Catalytic activity/Vol] 88 U/L Normal 39-130 [facility] Comment on above: Performed By: #### C , CBCA, 3, 3094-0 #### [facility] ([id number]) [address] [place] [address] 72333 ALT [Catalytic activity/Vol] 45 U/L High 0-40 [facility] Comment on above: Performed By: #### C , CBCAbel, 3, 3094-0 #### [facility] ([id number]) [address] [place] [address] [place] [address] Anion gap [Moles/Vol] 6 mmol/L Normal 5-15 [facility] Comment on above: Performed By: #### C , CBCA, 3, 3094-0 #### [facility] ([id number]) [address] [place] [address] 28063 AST [Catalytic activity/Vol] 54 U/L High 0-41 [facility] Comment on above: Performed By: #### C , CBCA, 3, 3094-0 #### [facility] ([id number]) [address] [place] [address] 07588 Bilirubin [Mass/Vol] 0.5 mg/dL Normal 0.3-1.2 [facility] Comment on above: Performed By: #### C , CBCA, 3, 3094-0 #### [facility] ([id number]) [address] [place] [address] 56752 Calcium [Mass/Vol] 7.7 mg/dL Low 8.5-10.5 [facility] Comment on above: Performed By: #### C RT CBCAbel, 4092-3, 3094-0 #### [facility] ([id number]) [address] [place] [address] 19982 Chloride [Moles/Vol] 100 mmol/L Normal 98-109 [facility] Comment on above: Performed By: #### C , CBCAbel, 4091-3, 3094-0 #### [facility] ([id number]) [address] [place] [address] 58648 CO2 [Moles/Vol] 25 mmol/L Normal 22-32 [facility] Comment on above: Performed By: #### C MIGDALIA BAILEY, 4091-3, 3094-0 #### [facility] ([id number]) [address] [place] [address] 10470 Creatinine [Mass/Vol] 0.39 mg/dL Low 0.70-1.20 [facility] Comment on above: Result Comment: METH OD TRACEABLE TO IDMS STANDARD Performed By: #### C MIGDALIA BAILEY, 4091-3, 3094-0 #### [facility] ([id number]) [address] [place] [address] 77783 eGFR (CKD-EPI) NON-RACE DEPENDENT >90 Normal >59 [facility] Comment on above: Result Comment: Reported eGFR is based on the CKD-EPI 2021 equation that does not use a race coefficient. Performed By: #### C , CBCAbel, 4091-3, 3094-0 #### [facility] ([id number]) [address] [place] [address] 14733 Performed By: #### C , 4092-3, 3094-0, CBCA #### [facility] ([id number]) [address] [place] [address] 92370 Glucose [Mass/Vol] 142 mg/dL High 65-99 [facility] Comment on above: Performed By: #### C , CBCA, 4091-3, 3094-0 #### [facility] ([id number]) [address] [place] [address] 63894 Potassium [Moles/Vol] 3.5 mmol/L Normal 3.5-5.0 [facility] Comment on above: Performed By: #### C , CBCA, 4091-3, 3094-0 #### [facility] ([id number]) [address] [place] [address] 23112 Protein [Mass/Vol] 6.1 g/dL Normal 6.0-8.0 [facility] Comment on above: Performed By: #### Sammy BAILEY, CBCA, 3, 3094-0 #### [facility] ([id number]) [address] [place] [address] 69625 Sodium [Moles/Vol] 131 mmol/L Low 134-146 [facility] Comment on above: Performed By: #### C , CBCA, 4091-12, 3094-0 #### [facility] ([id number]) [address] [place] [address] 07714 Urea nitrogen [Mass/Vol] 12 mg/dL Normal 5-27 [facility] Comment on above: Performed By: #### C , CBCA, 4091-3, 3094-0 #### [facility] ([id number]) [address] [place] [address] 75251 CREATININEon 10-12-2023 Creatinine [Mass/Vol] 0.47 mg/dL Low 0.70-1.20 [facility] Comment on above: Result Comment: METH OD TRACEABLE TO IDMS STANDARD Performed By: #### C , 4091-3, 3094-0, CBCA #### [facility] ([id number]) [address] [place] [address] 65127 Vancomycin trough [Mass/Vol] on 10-12-2023 VANCOMYCIN TROUGH 11.1 ug/mL Normal 5.0-20.0 [facility] Comment on above: Performed By: #### C RT, CBCA, 4092-3, 3094-0 #### [facility] ([id number]) [address] [place] [address] 55034 BLOOD UREA NITROGENon 2022 Urea nitrogen [Mass/Vol] 11 mg/dL Normal - [facility] Comment on above: Performed By: #### Sammy RT, 3, 3094-0, CBCA #### [facility] ([id number]) [address] [place] [address] 21979 CBC AND AUTO DIFFon 10-05-20 ABSOLUTE BASOPHIL 0.0 X10E9/L Normal 0.0-0.2 [facility] Comment on above: Performed By: #### Sammy RT, 3, 3094-0, CBCA #### [facility] ([id number]) [address] [place] [address] 46299 ABSOLUTE NEUTROPHIL 1.5 X10E9/L Normal 1.5-6.6 [facility] Comment on above: Performed By: #### Sammy RT, 3, 3094-0, CBCA #### [facility] ([id number]) [address] [place] [address] 56710 Basophils/100 WBC (Bld) 1.5 % Normal [facility] Comment on above: Performed By: #### Sammy RT, 4091-3, 3094-0, CBCA #### [facility] ([id number]) [address] [place] [address] 69924 Eosinophils (Bld) [#/Vol] 0.0 10*3/uL Normal 0.0-0.4 [facility] Comment on above: Performed By: #### C RT, 4091-12, 3093-0, CBCA #### [facility] ([id number]) [address] [place] [address] 50917 Eosinophils/100 WBC (Bld) 1.7 % Normal [facility] Comment on above: Performed By: #### Sammy RT, 4091-12, 3093-0, CBCA #### [facility] ([id number]) [address] [place] [address] 77218 Erythrocyte distribution width (RBC) [Ratio] 18.5 % High 11.5-15.0 [facility] Comment on above: Performed By: #### C RT, 4091-12, 0, CBCA #### [facility] ([id number]) [address] [place] [address] 04520 Hematocrit (Bld) [Volume fraction] 20.9 % Low 39-49 [facility] Comment on above: Performed By: #### C RT, 4091-12, 3093-0, CBCA #### [facility] ([id number]) [address] [place] [address] 49434 Hemoglobin (Bld) [Mass/Vol] 6.7 g/dL Critically low 13.0-17.0 [facility] Comment on above: Performed By: #### C RT, 4091-12, 0, CBCA #### [facility] ([id number]) [address] [place] [address] 43713 Lymphocytes (Bld) [#/Vol] 0.2 10*3/uL Low 1.0-3.5 [facility] Comment on above: Performed By: #### C RT, 4091-12, 3094-0, CBCA #### [facility] ([id number]) [address] [place] [address] 89583 Lymphocytes/100 WBC (Bld) 9.7 % Normal [facility] Comment on above: Performed By: #### Sammy RT, 4091-12, 3093-0, CBCA #### [facility] ([id number]) [address] [place] [address] 03716 MCH (RBC) [Entitic mass] 27.6 pg Normal 27-34 [facility] Comment on above: Performed By: #### Sammy RT, 4091-12, 3093-0, CBCA #### [facility] ([id number]) [address] [place] [address] 42198 MCHC (RBC) [Mass/Vol] 32.2 g/dL Normal 32-36 [facility] Comment on above: Performed By: #### Sammy RT, 4091-12, 4-0, CBCA #### [facility] ([id number]) [address] [place] [address] 26739 MCV (RBC) [Entitic vol] 86 fL Normal 80-100 [facility] Comment on above: Performed By: #### Sammy RT, 4091-12, 3093-0, CBCA #### [facility] ([id number]) [address] [place] [address] 15815 Monocytes (Bld) [#/Vol] 0.3 10*3/uL Normal 0-0.9 [facility] Comment on above: Performed By: #### Sammy RT, 4091-12, 3093-0, CBCA #### [facility] ([id number]) [address] [place] [address] 63972 Monocytes/100 WBC (Bld) 16.0 % Normal [facility] Comment on above: Performed By: #### Sammy RT, 4091-12, 3094-0, CBCA #### [facility] ([id number]) [address] [place] [address] 20195 Neutrophils/100 WBC (Bld) 71.1 % Normal [facility] Comment on above: Performed By: #### C RT, 4091-12, 3093-0, CBCA #### [facility] ([id number]) [address] [place] [address] 24608 Platelet mean volume (Bld) [Entitic vol] 9.4 fL Normal 7-12 [facility] Comment on above: Performed By: #### Sammy RT, 4091-12, 0, CBCA #### [facility] ([id number]) [address] [place] [address] 95585 Platelets (Bld) [#/Vol] 101 10*3/uL Low 150-450 [facility] Comment on above: Performed By: #### Sammy RT, 4091-12, 0, CBCA #### [facility] ([id number]) [address] [place] [address] 44318 RBC COUNT 2.43 X10E12/L Low 4.10-5.70 [facility] Comment on above: Performed By: #### Sammy RT, 4091-12, 0, CBCA #### [facility] ([id number]) [address] [place] [address] 19926 WBC (Bld) [#/Vol] 2.1 10*3/uL Low 4.0-11.0 [facility] Comment on above: Performed By: #### C RT, 4091-12, 0, CBCA #### [facility] ([id number]) [address] [place] [address] 08908 CREATININEon 10-05-2023 Creatinine [Mass/Vol] 0.42 mg/dL Low 0.70-1.20 [facility] Comment on above: Result Comment: METH OD TRACEABLE TO IDMS STANDARD Performed By: #### Sammy RT, 4091-12, 0, CBCA #### [facility] ([id number]) [address] [place] [address] eGFR (CKD-EPI) NON-RACE DEPENDENT >90 Normal >59 [facility] Comment on above: Result Comment: Reported eGFR is based on the CKD-EPI 2020 equation that does not use a race coefficient. Performed By: #### C RT, 4092-3, 3094-0, CBCA #### [facility] ([id number]) [address] [place] [address] 55519 Follow-Upon 10-05-2023 Follow-Up Normal [facility] Telephoneon 10-05-2023 Telephone Normal [facility] Vancomycin trough [Mass/Vol] on 10-05-2023 VANCOMYCIN TROUGH 14.7 ug/mL Normal 5.0-20.0 [facility] Comment on above: Performed By: #### C RT, 4091-3, 309-0, CBCA #### [facility] ([id number]) [address] [place] [address] 34609 36on 09-30-2023 36 No Opat received. Clare crawford faxed to us showing stable results. Normal [facility] BLOOD UREA NITROGENon 2022 Urea nitrogen [Mass/Vol] 12 mg/dL Normal 03-05 [facility] Comment on above: Performed By: #### C RT, CBCA, 4091-3, 3094-0 #### [facility] ([id number]) [address] [place] [address] 99300 CBC AND AUTO DIFFon 09-28-20 23 ABSOLUTE BASOPHIL 0.0 X10E9/L Normal 0.0-0.2 [facility] Comment on above: Performed By: #### C RT, CBCA, 4092-3, 3094-0 #### [facility] ([id number]) [address] [place] [address] 76747 ABSOLUTE NEUTROPHIL 4.7 X10E9/L Normal 1.5-6.6 [facility] Comment on above: Performed By: #### C RT, CBCA, 4091-3, 3094-0 #### [facility] ([id number]) [address] [place] [address] 38101 Basophils/100 WBC (Bld) 0.6 % Normal [facility] Comment on above: Performed By: #### C RT, CBCA, 4091-12, 3094-0 #### [facility] ([id number]) [address] [place] [address] 73733 Eosinophils (Bld) [#/Vol] 0.0 10*3/uL Normal 0.0-0.4 [facility] Comment on above: Performed By: #### C RT, CBCA, 3, 3094-0 #### [facility] ([id number]) [address] [place] [address] 16247 Eosinophils/100 WBC (Bld) 0.6 % Normal [facility] Comment on above: Performed By: #### C RT, CBCA, 4091-12, 3094-0 #### [facility] ([id number]) [address] [place] [address] 01832 Erythrocyte distribution width (RBC) [Ratio] 18.5 % High 11.5-15.0 [facility] Comment on above: Performed By: #### C RT, CBCA, 4091-12, 3094-0 #### [facility] ([id number]) [address] [place] [address] 29146 Hematocrit (Bld) [Volume fraction] 23.7 % Low 39-49 [facility] Comment on above: Performed By: #### C RT, CBCA, 4091-3, 3094-0 #### [facility] ([id number]) [address] [place] [address] 89555 Hemoglobin (Bld) [Mass/Vol] 7.8 g/dL Low 13.0-17.0 [facility] Comment on above: Performed By: #### C RT, CBCA, 4091-3, 3094-0 #### [facility] ([id number]) [address] [place] [address] 26241 Lymphocytes (Bld) [#/Vol] 0.5 10*3/uL Low 1.0-3.5 [facility] Comment on above: Performed By: #### C RT, CBCA, 4091-3, 3094-0 #### [facility] ([id number]) [address] [place] [address] 75797 Lymphocytes/100 WBC (Bld) 8.5 % Normal [facility] Comment on above: Performed By: #### C RT, CBCA, 3, 3094-0 #### [facility] ([id number]) [address] [place] [address] 16684 MCH (RBC) [Entitic mass] 27.9 pg Normal 27-34 [facility] Comment on above: Performed By: #### C RT, CBCA, 3, 3094-0 #### [facility] ([id number]) [address] [place] [address] 03023 MCHC (RBC) [Mass/Vol] 32.9 g/dL Normal 32-36 [facility] Comment on above: Performed By: #### C RT, CBCA, 4091-3, 3094-0 #### [facility] ([id number]) [address] [place] [address] 39339 MCV (RBC) [Entitic vol] 85 fL Normal 80-100 [facility] Comment on above: Performed By: #### C RT, CBCA, 4091-3, 3094-0 #### [facility] ([id number]) [address] [place] [address] 72061 Monocytes (Bld) [#/Vol] 0.5 10*3/uL Normal 0-0.9 [facility] Comment on above: Performed By: #### C RT, CBCA, 4092-3, 3094-0 #### [facility] ([id number]) [address] [place] [address] 01191 Monocytes/100 WBC (Bld) 9.2 % Normal [facility] Comment on above: Performed By: #### C RT, CBCA, 4092-3, 3094-0 #### [facility] ([id number]) [address] [place] [address] 76075 Neutrophils/100 WBC (Bld) 81.1 % Normal [facility] Comment on above: Performed By: #### C RT, CBCA, 4092-3, 3094-0 #### [facility] ([id number]) [address] [place] [address] 36067 Platelet mean volume (Bld) [Entitic vol] 8.8 fL Normal 7-12 [facility] Comment on above: Performed By: #### C RT, CBCA, 409-3, 3094-0 #### [facility] ([id number]) [address] [place] [address] 11055 Platelets (Bld) [#/Vol] 101 10*3/uL Low 150-450 [facility] Comment on above: Performed By: #### C RT, CBCA, 4092-3, 3094-0 #### [facility] ([id number]) [address] [place] [address] 18161 RBC COUNT 2.80 X10E12/L Low 4.10-5.70 [facility] Comment on above: Performed By: #### C RT, CBCA, 4092-3, 3094-0 #### [facility] ([id number]) [address] [place] [address] [place] [address] WBC (Bld) [#/Vol] 5.8 10*3/uL Normal 4.0-11.0 [facility] Comment on above: Performed By: #### C MIGDALIA BAILEY, 4092-3, 3094-0 #### [facility] ([id number]) [address] [place] [address] CREATININEon 09-28-2023 Creatinine [Mass/Vol] 0.46 mg/dL Low 0.70-1.20 [facility] Comment on above: Result Comment: METH OD TRACEABLE TO IDMS STANDARD Performed By: #### C MIGDALIA BAILEY, 4092-3, 3094-0 #### [facility] ([id number]) [address] [place] [address] eGFR (CKD-EPI) NON-RACE DEPENDENT >90 Normal >59 [facility] Comment on above: Result Comment: Reported eGFR is based on the CKD-EPI 2020 equation that does not use a race coefficient. Performed By: #### C MIGDALIA BAILEY, 4092-3, 3094-0 #### [facility] ([id number]) [address] [place] [address] 58652 Vancomycin trough [Mass/Vol] on 09-28-2023 VANCOMYCIN TROUGH 12.3 ug/mL Normal 5.0-20.0 [facility] Comment on above: Performed By: #### C MIGDALIA BAILEY, 4092-3, 3094-0 #### [facility] ([id number]) [address] [place] [address] 30on 09-26-2023 30 The patient is Moderately Stable - Low risk of patient condition declining or worsening The patient's goals for the shift include Comfort The clinical goals for the shift include VSS Normal [facility] 30 Normal [facility] ANTI-XA (HEPARIN LEVEL)on HEPARIN UNFRACTIONATED (U/ML) IN PPP BY CHROMOGENIC METHOD 0.18 IU/mL Low 0.3-0.7 [facility] Comment on above: Result Comment: [employer] roxaban and Apixaban will interfere with the anti Xa assay used to monitor UFH and LMWH. Performed By: #### L [id number] ####[facility] (BEAKER)[address] [place] [address] BASIC METABOLIC PANELon 12 Anion gap [Moles/Vol] 8 mmol/L Normal 7-20 [facility] Comment on above: Performed By: #### L [id number] ####[facility] (BEAKER)[address] [place] [address] Calcium [Mass/Vol] 8.5 mg/dL Low 8.6-10.3 [facility] Comment on above: Performed By: #### L [id number] ####[facility] (BEAKER)[address] [place] [address] Chloride [Moles/Vol] 105 mmol/L Normal 98-[address] [facility] Comment on above: Performed By: #### L [id number] ####[facility] ([facility]AKER)[address] [place] [address] CO2 [Moles/Vol] 26 mmol/L Normal 21-31 [facility] Comment on above: Performed By: #### L [id number] ####[facility] (BEAKER)[address] [place] [address] Creatinine [Mass/Vol] 0.40 mg/dL Low 0.70-1.30 [facility] Comment on above: Performed By: #### L [id number] ####[facility] (BEAKER)[address] [place] [address] GLOMERULAR FILTRATION RATE ML/MIN/1.73 SQ M.PREDICTED 113.1 mL/min/1.73m*2 Normal >60.0 [facility] Comment on above: Result Comment: [facility]???s estimated glomerular filtration rate (eGFR) will [...] of individuals. Performed By: #### L [id number] ####[facility] ([facility])[address] [place] [address] Glucose [Mass/Vol] 92 mg/dL Normal 70-100 [facility] Comment on above: Performed By: #### L [id number] ####[facility] ([facility])[address] [place] [address] Potassium [Moles/Vol] 3.8 mmol/L Normal 3.5-5.1 [facility] Comment on above: Performed By: #### L [id number] ####[facility] ([facility])[address] [place] [address] Sodium [Moles/Vol] 135 mmol/L Low 136-145 [facility] Comment on above: Performed By: #### L [id number] ####[facility] ([facility])[address] [place] [address] Urea nitrogen [Mass/Vol] 14 mg/dL Normal 7-25 [facility] Comment on above: Performed By: #### L [id number] ####[facility] ([facility])[address] [place] [address] UREA NITROGEN/CREATININE (MASS RATIO) IN SER/PLAS 35.0 Normal [facility] Comment on above: Performed By: #### L [id number] ####[facility] ([facility])[address] [place] [address] CBC WITH AUTO DIFFERENTIALon 09-26-2023 Erythrocyte distribution width (RBC) [Ratio] 18.0 % High 11.5-15.0 [facility] Comment on above: Performed By: #### L [id number] ####[facility] ([facility])[address] [place] [address] ERYTHROCYTE MEAN CORPUSCULAR HEMOGLOBIN CONCENTRATION (G/DL) BY AUTOMATED 32.0 g/dL Normal 32.0-35.0 [facility] Comment on above: Performed By: #### L [id number] ####[facility] (BEAKER)[address] [place] [address] Hematocrit (Bld) [Volume fraction] 22.8 % Low 39.0-55.0 [facility] Comment on above: Performed By: #### L [id number] ####[facility] (BE[facility]ER)[address] [place] [address] Hemoglobin (Bld) [Mass/Vol] 7.3 g/dL Low 13.0-17.0 [facility] Comment on above: Performed By: #### L [id number] ####[facility] (BE[facility]ER)[address] [place] [address] IMMATURE PLATELET FRACTION % 3.7 % Normal 0.8-6.3 [facility] Comment on above: Performed By: #### L [id number] ####[facility] ([facility]ER)[address] [place] [address] MCH (RBC) [Entitic mass] 27.9 pg Normal 27.0-33.0 [facility] Comment on above: Performed By: #### L [id number] ####[facility] (BE[facility]ER)[address] [place] [address] MCV (RBC) [Entitic vol] 87.0 fL Normal 82.0-98.0 [facility] Comment on above: Performed By: #### L [id number] ####[facility] ([facility]ER)[address] [place] [address] NRBC (PER 100 WBCS) BY AUTOMATED COUNT 0.0 % Normal 0 [facility] Comment on above: Performed By: #### L [id number] ####[facility] ([facility]ER)[address] [place] [address] PLATELETS (10*3/UL) IN BLOOD AUTOMATED COUNT 75 10*3/uL Low 150-400 [facility] Comment on above: Result Comment: [facility] PV = 73 @ 09/25/23 Performed By: #### L [id number] ####[facility] ([facility])[address] [place] [address] RBC (Bld) [#/Vol] 2.62 10*6/uL Low 4.20-5.70 [facility] Comment on above: Performed By: #### L [id number] ####[facility] ([facility])[address] [place] [address] WBC (Bld) [#/Vol] 2.12 10*3/uL Low 4.00-10.60 [facility] Comment on above: Performed By: #### L [id number] ####[facility] ([facility])[address] [place] [address] DSon 09-26-2023 DS Normal [facility] MAGNESIUMon 09-26-2023 Magnesium [Mass/Vol] 1.6 mg/dL Low 1.9-2.[address] [facility] Comment on above: Performed By: #### L [id number] ####[facility] ([facility])[address] [place] [address] MANUAL DIFFERENTIALon 2022 BASOPHILS (10*3/UL) IN BLOOD BY CALCULATION 0.01 10*3/uL Normal 0.00-0.20 [facility] Comment on above: Performed By: #### L [id number] ####[facility] ([facility])[address] [place] [address] BASOPHILS/100 LEUKOCYTES IN BLOOD BY AUTOMATED COUNT 0.5 % Normal 0.0-1.0 [facility] Comment on above: Performed By: #### L [id number] ####[facility] ([facility])[address] [place] [address] EOSINOPHILS (10*3/UL) IN BLOOD BY CALCULATION 0.02 10*3/uL Normal 0.00-0.50 [facility] Comment on above: Performed By: #### L [id number] ####[facility] ([facility])[address] [place] [address] EOSINOPHILS/100 LEUKOCYTES IN BLOOD BY AUTOMATED COUNT 0.9 % Normal 0.0-6.0 [facility] Comment on above: Performed By: #### L [id number] ####[facility] ([facility])[address] [place] [address] IMMATURE GRANULOCYTES (10*3/UL) IN BLOOD BY CALCULATION 0.01 10*3/uL Normal 0.00-0.20 [facility] Comment on above: Performed By: #### L [id number] ####[facility] ([facility])[address] [place] [address] IMMATURE GRANULOCYTES/100 LEUKOCYTES IN BLOOD BY AUTOMATED COUNT 0.5 % Normal 0.0-1.0 [facility] Comment on above: Performed By: #### L [id number] ####[facility] ([facility])[address] [place] [address] LYMPHOCYTES (10*3/UL) IN BLOOD BY CALCULATION 0.36 10*3/uL Low 1.20-4.00 [facility] Comment on above: Performed By: #### L [id number] ####[facility] ([facility])[address] [place] [address] LYMPHOCYTES/100 LEUKOCYTES IN BLOOD BY AUTOMATED COUNT 17.0 % Low 20.0-45.0 [facility] Comment on above: Performed By: #### L [id number] ####[facility] ([facility])[address] [place] [address] MONOCYTES (10*3/UL) IN BLOOD BY CALCUATION 0.24 10*3/uL Normal 0.10-1.00 [facility] Comment on above: Performed By: #### L [id number] ####[facility] ([facility])[address] [place] [address] MONOCYTES/100 LEUKOCYTES IN BLOOD BY AUTOMATED COUNT 11.3 % Normal 5.0-12.0 [facility] Comment on above: Performed By: #### L [id number] ####[facility] ([facility]AKER)[address] [place] [address] NEUTROPHILS (10*3/UL) IN BLOOD BY CALCULATION 1.5 10*3/uL Low 1.6-7.6 [facility] Comment on above: Performed By: #### L [id number] ####[facility] ([facility]AKER)[address] [place] [address] NEUTROPHILS/100 LEUKOCYTES IN BLOOD BY AUTOMATED COUNT 69.8 % Normal 40.0-72.0 [facility] Comment on above: Performed By: #### L [id number] ####[facility] ([facility])[address] [place] [address] NURSNOTEon 09-26-2023 NURSNOTE [facility] NURSNOTE Normal [facility] PHOSPHORUSon 09-26-2023 Magnesium [Mass/Vol] 3.2 mg/dL Normal 2.5-5.[address] [facility] Comment on above: Performed By: #### L [id number] ####[facility] ([facility])[address] [place] [address] POCT GLUCOSE METER UNSOLICIT ED RESULTSon 09-26-2023 Glucose [Mass/Vol] 117 mg/dL High 70-105 [facility] Comment on above: Order Comment: Waive d Testing in the ED is performed under the ED CLIA certificate #[id number]. Result Comment: [email or web address] [email or web address] Performed By: #### L [id number] ####[facility] ([facility])[address] [place] [address] 30on 09-25-2023 30 Normal [facility] ANTI-XA (HEPARIN LEVEL)on HEPARIN UNFRACTIONATED (U/ML) IN PPP BY CHROMOGENIC METHOD 0.17 IU/mL Low 0.3-0.7 [facility] Comment on above: Result Comment: [place] roxaban and Apixaban will interfere with the anti Xa assay used to monitor UFH and LMWH. Performed By: #### L [id number] ####[facility] ([facility])[address] [place] [address] HEPARIN UNFRACTIONATED (U/ML) IN PPP BY CHROMOGENIC METHOD 0.19 IU/mL Low 0.3-0.7 [facility] Comment on above: Result Comment: Masha roxaban and Apixaban will interfere with the anti Xa assay used to monitor UFH and LMWH. Performed By: #### L [id number] ####[facility] ([facility])[address] [place] [address] HEPARIN UNFRACTIONATED (U/ML) IN PPP BY CHROMOGENIC METHOD 0.15 IU/mL Invalid Interpretation Code 0.3-0.7 [facility] Comment on above: Result Comment: Ho Ho Kus roxaban and Apixaban will interfere with the anti Xa assay used to monitor UFH and LMWH. Performed By: #### L [id number] ####[facility] ([facility])[address] [place] [address] APTTon 09-25-2023 ACTIVATED PARTIAL THROMBOPLASTIN TIME IN PPP BY COAGULATION ASSAY 71.9 Seconds High 25.0-35.0 [facility] Comment on above: Result Comment: Clin ical significance of the APTT is questionable in the presence of heparin. Performed By: #### L [id number] ####[facility] ([facility])[address] [place] [address] BASIC METABOLIC PANELon 12 Anion gap [Moles/Vol] 8 mmol/L Normal 7-20 [facility] Comment on above: Performed By: #### L [id number] ####[facility] ([facility])[address] [place] [address] Calcium [Mass/Vol] 8.4 mg/dL Low 8.6-10.3 [facility] Comment on above: Performed By: #### L [id number] ####[facility] ([facility])[address] [place] [address] Chloride [Moles/Vol] 105 mmol/L Normal 98-[address] [facility] Comment on above: Performed By: #### L [id number] ####[facility] ([facility])[address] [place] [address] CO2 [Moles/Vol] 25 mmol/L Normal 21-31 [facility] Comment on above: Performed By: #### L [id number] ####[facility] ([facility])[address] [place] [address] Creatinine [Mass/Vol] 0.31 mg/dL Low 0.70-1.30 [facility] Comment on above: Performed By: #### L [id number] ####[facility] ([facility])[address] [place] [address] GLOMERULAR FILTRATION RATE ML/MIN/1.73 SQ M.PREDICTED 122.1 mL/min/1.73m*2 Normal >60.0 [facility] Comment on above: Result Comment: [facility]???s estimated glomerular filtration rate (eGFR) will [...] of individuals. Performed By: #### L [id number] ####[facility] ([facility])[address] [place] [address] Glucose [Mass/Vol] 107 mg/dL High 70-100 [facility] Comment on above: Performed By: #### L [id number] ####[facility] ([facility])[address] [place] [address] Potassium [Moles/Vol] 3.7 mmol/L Normal 3.5-5.1 [facility] Comment on above: Performed By: #### L [id number] ####[facility] ([facility])[address] [place] [address] Sodium [Moles/Vol] 134 mmol/L Low 136-145 [facility] Comment on above: Performed By: #### L [id number] ####[facility] ([facility])[address] [place] [address] Urea nitrogen [Mass/Vol] 13 mg/dL Normal 7-25 [facility] Comment on above: Performed By: #### L [id number] ####[facility] ([facility])[address] [place] [address] UREA NITROGEN/CREATININE (MASS RATIO) IN SER/PLAS 41.9 Normal [facility] Comment on above: Performed By: #### L [id number] ####[facility] ([facility])[address] [place] [address] CBC WITH AUTO DIFFERENTIALon 09-25-2023 Erythrocyte distribution width (RBC) [Ratio] 17.7 % High 11.5-15.0 [facility] Comment on above: Performed By: #### L [id number] ####[facility] ([facility])[address] [place] [address] ERYTHROCYTE MEAN CORPUSCULAR HEMOGLOBIN CONCENTRATION (G/DL) BY AUTOMATED 31.3 g/dL Low 32.0-35.0 [facility] Comment on above: Performed By: #### L [id number] ####[facility] ([facility])[address] [place] [address] Hematocrit (Bld) [Volume fraction] 24.0 % Low 39.0-55.0 [facility] Comment on above: Performed By: #### L [id number] ####[facility] ([facility])[address] [place] [address] Hemoglobin (Bld) [Mass/Vol] 7.5 g/dL Low 13.0-17.0 [facility] Comment on above: Performed By: #### L [id number] ####[facility] ([facility])[address] [place] [address] IMMATURE PLATELET FRACTION % 2.7 % Normal 0.8-6.3 [facility] Comment on above: Performed By: #### L [id number] ####[facility] ([facility])[address] [address] MCH (RBC) [Entitic mass] 27.0 pg Normal 27.0-33.0 [facility] Comment on above: Performed By: #### L [id number] ####[facility] ([facility])[address] [address] MCV (RBC) [Entitic vol] 86.3 fL Normal 82.0-98.0 [facility] Comment on above: Performed By: #### L [id number] ####[facility] ([facility])[address] [address] NRBC (PER 100 WBCS) BY AUTOMATED COUNT 0.0 % Normal 0 [facility] Comment on above: Performed By: #### L [id number] ####[facility] ([facility])[address] [address] PLATELETS (10*3/UL) IN BLOOD AUTOMATED COUNT 73 10*3/uL Low 150-400 [facility] Comment on above: Result Comment: Last plt 73 1d Performed By: #### L [id number] ####[facility] ([facility])[address] [address] RBC (Bld) [#/Vol] 2.78 10*6/uL Low 4.20-5.70 [facility] Comment on above: Performed By: #### L [id number] ####[facility] ([facility])[address] [address] WBC (Bld) [#/Vol] 2.11 10*3/uL Low 4.00-10.60 [facility] Comment on above: Performed By: #### L [id number] ####[facility] ([facility])[address] [place] [address] MAGNESIUMon 09-25-2023 Magnesium [Mass/Vol] 1.6 mg/dL Low 1.9-2.[address] [facility] Comment on above: Performed By: #### L [id number] ####[facility] ([facility])[address] [place] [address] MANUAL DIFFERENTIALon 2022 BASOPHILS (10*3/UL) IN BLOOD BY CALCULATION 0.01 10*3/uL Normal 0.00-0.20 [facility] Comment on above: Performed By: #### L [id number] ####[facility] ([facility])[address] [place] [address] BASOPHILS/100 LEUKOCYTES IN BLOOD BY AUTOMATED COUNT 0.5 % Normal 0.0-1.0 [facility] Comment on above: Performed By: #### L [id number] ####[facility] ([facility])[address] [place] [address] EOSINOPHILS (10*3/UL) IN BLOOD BY CALCULATION 0.04 10*3/uL Normal 0.00-0.50 [facility] Comment on above: Performed By: #### L [id number] ####[facility] ([facility])[address] [place] [address] EOSINOPHILS/100 LEUKOCYTES IN BLOOD BY AUTOMATED COUNT 1.9 % Normal 0.0-6.0 [facility] Comment on above: Performed By: #### L [id number] ####[facility] ([facility])[address] [place] [address] IMMATURE GRANULOCYTES (10*3/UL) IN BLOOD BY CALCULATION 0.01 10*3/uL Normal 0.00-0.20 [facility] Comment on above: Performed By: #### L [id number] ####[facility] ([facility])[address] [place] [address] IMMATURE GRANULOCYTES/100 LEUKOCYTES IN BLOOD BY AUTOMATED COUNT 0.5 % Normal 0.0-1.0 [facility] Comment on above: Performed By: #### L [id number] ####[facility] ([facility])[address] [place] [address] LYMPHOCYTES (10*3/UL) IN BLOOD BY CALCULATION 0.37 10*3/uL Low 1.20-4.00 [facility] Comment on above: Performed By: #### L [id number] ####[facility] ([facility])[address] [place] [address] LYMPHOCYTES/100 LEUKOCYTES IN BLOOD BY AUTOMATED COUNT 17.5 % Low 20.0-45.0 [facility] Comment on above: Performed By: #### L [id number] ####[facility] ([facility])[address] [place] [address] MONOCYTES (10*3/UL) IN BLOOD BY CALCUATION 0.22 10*3/uL Normal 0.10-1.00 [facility] Comment on above: Performed By: #### L [id number] ####[facility] ([facility])[address] [place] [address] MONOCYTES/100 LEUKOCYTES IN BLOOD BY AUTOMATED COUNT 10.4 % Normal 5.0-12.0 [facility] Comment on above: Performed By: #### L [id number] ####[facility] ([facility])[address] [place] [address] NEUTROPHILS (10*3/UL) IN BLOOD BY CALCULATION 1.5 10*3/uL Low 1.6-7.6 [facility] Comment on above: Performed By: #### L [id number] ####[facility] ([facility])[address] [place] [address] NEUTROPHILS/100 LEUKOCYTES IN BLOOD BY AUTOMATED COUNT 69.2 % Normal 40.0-72.0 [facility] Comment on above: Performed By: #### L [id number] ####[facility] ([facility])[address] [place] [address] NURSNOTEon 09-25-2023 NURSNOTE Pt would not let francis lee change his wound vac, stated that it would be changed tomorrow when he is discharged. He did however let us bathe him, change linens and change his picc line dressing today. Paulina Kay RN Normal [facility] PHOSPHORUSon 09-25-2023 Magnesium [Mass/Vol] 2.7 mg/dL Normal 2.5-5.[address] [facility] Comment on above: Performed By: #### L [id number] ####[facility] ([facility])[address] [place] [address] POCT GLUCOSE METER UNSOLICIT ED RESULTSon 09-25-2023 Glucose [Mass/Vol] 97 mg/dL Normal 70-105 [facility] Comment on above: Order Comment: Waive d Testing in the ED is performed under the ED CLIA certificate #[id number]. Result Comment: [email or web address] Performed By: #### L [id number] ####[facility] ([facility])[address] [place] [address] Glucose [Mass/Vol] 188 mg/dL High 70-105 [facility] Comment on above: Order Comment: Waive d Testing in the ED is performed under the ED CLIA certificate #[id number]. Result Comment: [email or web address] Performed By: #### L [id number] ####[facility] ([facility])[address] [place] [address] Glucose [Mass/Vol] 125 mg/dL High 70-105 [facility] Comment on above: Order Comment: Waive d Testing in the ED is performed under the ED CLIA certificate #[id number]. Result Comment: [email or web address] Performed By: #### L [id number] ####[facility] ([facility])[address] [place] [address] Glucose [Mass/Vol] 108 mg/dL High 70-105 [facility] Comment on above: Order Comment: Waive d Testing in the ED is performed under the ED CLIA certificate #[id number]. Result Comment: [email or web address] Performed By: #### L [id number] ####[facility] ([facility])[address] [place] [address] 30on 09-24-2023 30 Normal [facility] 30 Normal [facility] ANTI-XA (HEPARIN LEVEL)on HEPARIN UNFRACTIONATED (U/ML) IN PPP BY CHROMOGENIC METHOD <0.10 Invalid Interpretation Code 0.3-0.7 [facility] Comment on above: Result Comment: Ho Ho Kus roxaban and Apixaban will interfere with the anti Xa assay used to monitor UFH and LMWH. Performed By: #### L [id number] ####[facility] ([facility])[address] [place] [address] BASIC METABOLIC PANELon 12- Anion gap [Moles/Vol] 8 mmol/L Normal 7-20 [facility] Comment on above: Performed By: #### L [id number] ####[facility] ([facility])[address] [place] [address] Calcium [Mass/Vol] 8.4 mg/dL Low 8.6-10.3 [facility] Comment on above: Performed By: #### L [id number] ####[facility] ([facility])[address] [place] [address] Chloride [Moles/Vol] 103 mmol/L Normal 98-[address] [facility] Comment on above: Performed By: #### L [id number] ####[facility] ([facility])[address] [place] [address] CO2 [Moles/Vol] 28 mmol/L Normal 21-31 [facility] Comment on above: Performed By: #### L [id number] ####[facility] ([facility])[address] [place] [address] Creatinine [Mass/Vol] 0.36 mg/dL Low 0.70-1.30 [facility] Comment on above: Performed By: #### L [id number] ####[facility] ([facility])[address] [place] [address] GLOMERULAR FILTRATION RATE ML/MIN/1.73 SQ M.PREDICTED 116.7 mL/min/1.73m*2 Normal >60.0 [facility] Comment on above: Result Comment: [facility]???s estimated glomerular filtration rate (eGFR) will [...] of individuals. Performed By: #### L [id number] ####[facility] ([facility])[address] [place] [address] Glucose [Mass/Vol] 100 mg/dL Normal 70-100 [facility] Comment on above: Performed By: #### L [id number] ####[facility] ([facility])[address] [place] [address] Potassium [Moles/Vol] 3.5 mmol/L Normal 3.5-5.1 [facility] Comment on above: Performed By: #### L [id number] ####[facility] ([facility])[address] [place] [address] Sodium [Moles/Vol] 135 mmol/L Low 136-145 [facility] Comment on above: Performed By: #### L [id number] ####[facility] ([facility])[address] [place] [address] Urea nitrogen [Mass/Vol] 13 mg/dL Normal 7-25 [facility] Comment on above: Performed By: #### L [id number] ####[facility] ([facility])[address] [place] [address] UREA NITROGEN/CREATININE (MASS RATIO) IN SER/PLAS 36.1 Normal [facility] Comment on above: Performed By: #### L [id number] ####[facility] ([facility])[address] [place] [address] CBC WITH AUTO DIFFERENTIALon 09-24-2023 Erythrocyte distribution width (RBC) [Ratio] 17.8 % High 11.5-15.0 [facility] Comment on above: Performed By: #### L [id number] ####[facility] ([facility])[address] [place] [address] ERYTHROCYTE MEAN CORPUSCULAR HEMOGLOBIN CONCENTRATION (G/DL) BY AUTOMATED 32.1 g/dL Normal 32.0-35.0 [facility] Comment on above: Performed By: #### L [id number] ####[facility] ([facility])[address] [place] [address] Hematocrit (Bld) [Volume fraction] 23.7 % Low 39.0-55.0 [facility] Comment on above: Performed By: #### L [id number] ####[facility] ([facility])[address] [place] [address] Hemoglobin (Bld) [Mass/Vol] 7.6 g/dL Low 13.0-17.0 [facility] Comment on above: Performed By: #### L [id number] ####[facility] ([facility])[address] [place] [address] IMMATURE PLATELET FRACTION % 3.1 % Normal 0.8-6.3 [facility] Comment on above: Performed By: #### L [id number] ####[facility] ([facility])[address] [place] [address] MCH (RBC) [Entitic mass] 27.7 pg Normal 27.0-33.0 [facility] Comment on above: Performed By: #### L [id number] ####[facility] ([facility])[address] [place] [address] MCV (RBC) [Entitic vol] 86.5 fL Normal 82.0-98.0 [facility] Comment on above: Performed By: #### L [id number] ####[facility] ([facility])[address] [place] [address] NRBC (PER 100 WBCS) BY AUTOMATED COUNT 0.0 % Normal 0 [facility] Comment on above: Performed By: #### L [id number] ####[facility] ([facility])[address] [place] [address] PLATELETS (10*3/UL) IN BLOOD AUTOMATED COUNT 73 10*3/uL Low 150-400 [facility] Comment on above: Performed By: #### L [id number] ####[facility] ([facility])[address] [place] [address] RBC (Bld) [#/Vol] 2.74 10*6/uL Low 4.20-5.70 [facility] Comment on above: Performed By: #### L [id number] ####[facility] ([facility])[address] [place] [address] WBC (Bld) [#/Vol] 2.37 10*3/uL Low 4.00-10.60 [facility] Comment on above: Performed By: #### L [id number] ####[facility] ([facility])[address] [place] [address] MAGNESIUMon 09-24-2023 Magnesium [Mass/Vol] 1.6 mg/dL Low 1.9-2.[address] [facility] Comment on above: Performed By: #### L [id number] ####[facility] ([facility])[address] [place] [address] MANUAL DIFFERENTIALon 2022 BASOPHILS (10*3/UL) IN BLOOD BY CALCULATION 0.01 10*3/uL Normal 0.00-0.20 [facility] Comment on above: Performed By: #### L [id number] ####[facility] ([facility])[address] [place] [address] BASOPHILS/100 LEUKOCYTES IN BLOOD BY AUTOMATED COUNT 0.4 % Normal 0.0-1.0 [facility] Comment on above: Performed By: #### L [id number] ####[facility] ([facility])[address] [place] [address] EOSINOPHILS (10*3/UL) IN BLOOD BY CALCULATION 0.03 10*3/uL Normal 0.00-0.50 [facility] Comment on above: Performed By: #### L [id number] ####[facility] ([facility])[address] [place] [address] EOSINOPHILS/100 LEUKOCYTES IN BLOOD BY AUTOMATED COUNT 1.3 % Normal 0.0-6.0 [facility] Comment on above: Performed By: #### L [id number] ####[facility] ([facility])[address] [place] [address] IMMATURE GRANULOCYTES (10*3/UL) IN BLOOD BY CALCULATION 0.01 10*3/uL Normal 0.00-0.20 [facility] Comment on above: Performed By: #### L [id number] ####[facility] ([facility])[address] [place] [address] IMMATURE GRANULOCYTES/100 LEUKOCYTES IN BLOOD BY AUTOMATED COUNT 0.4 % Normal 0.0-1.0 [facility] Comment on above: Performed By: #### L [id number] ####[facility] ([facility])[address] [place] [address] LYMPHOCYTES (10*3/UL) IN BLOOD BY CALCULATION 0.37 10*3/uL Low 1.20-4.00 [facility] Comment on above: Performed By: #### L [id number] ####[facility] ([facility])[address] [place] [address] LYMPHOCYTES/100 LEUKOCYTES IN BLOOD BY AUTOMATED COUNT 15.6 % Low 20.0-45.0 [facility] Comment on above: Performed By: #### L [id number] ####[facility] ([facility])[address] [place] [address] MONOCYTES (10*3/UL) IN BLOOD BY CALCUATION 0.19 10*3/uL Normal 0.10-1.00 [facility] Comment on above: Performed By: #### L [id number] ####[facility] ([facility])[address] [place] [address] MONOCYTES/100 LEUKOCYTES IN BLOOD BY AUTOMATED COUNT 8.0 % Normal 5.0-12.0 [facility] Comment on above: Performed By: #### L [id number] ####[facility] ([facility])[address] [place] [address] NEUTROPHILS (10*3/UL) IN BLOOD BY CALCULATION 1.8 10*3/uL Normal 1.6-7.6 [facility] Comment on above: Performed By: #### L [id number] ####[facility] ([facility])[address] [place] [address] NEUTROPHILS/100 LEUKOCYTES IN BLOOD BY AUTOMATED COUNT 74.3 % High 40.0-72.0 [facility] Comment on above: Performed By: #### L [id number] ####[facility] ([facility])[address] [place] [address] PHOSPHORUSon 09-24-2023 Magnesium [Mass/Vol] 3.0 mg/dL Normal 2.5-5.[address] [facility] Comment on above: Performed By: #### L [id number] ####[facility] ([facility])[address] [place] [address] POCT GLUCOSE METER UNSOLICIT ED RESULTSon 09-24-2023 Glucose [Mass/Vol] 188 mg/dL High 70-105 [facility] Comment on above: Order Comment: Waive d Testing in the ED is performed under the ED CLIA certificate #[id number]. Result Comment: [email or web address] Performed By: #### L [id number] ####[facility] ([facility])[address] [place] [address] Glucose [Mass/Vol] 170 mg/dL High 70-105 [facility] Comment on above: Order Comment: Waive d Testing in the ED is performed under the ED CLIA certificate #[id number]. Result Comment: [email or web address] Performed By: #### L [id number] ####[facility] ([facility])[address] [place] [address] Glucose [Mass/Vol] 237 mg/dL High 70-105 [facility] Comment on above: Order Comment: Waive d Testing in the ED is performed under the ED CLIA certificate #[id number]. Result Comment: [email or web address] Performed By: #### L [id number] ####[facility] ([facility])[address] [place] [address] Glucose [Mass/Vol] 105 mg/dL Normal 70-105 [facility] Comment on above: Order Comment: Waive d Testing in the ED is performed under the ED CLIA certificate #[id number]. Result Comment: [email or web address] Performed By: #### L [id number] ####[facility] ([facility])[address] [facility] [place] [place] [address] VANCOMYCIN, TROUGHon 023 VANCOMYCIN (UG/ML) IN SER/PLAS - TROUGH 11.7 ug/mL Normal 5.0-20.0 [facility] Comment on above: Performed By: #### L [id number] ####[facility] ([facility])[address] [facility] [place] [address] 30on 09-23-2023 30 Normal [facility] ANTI-XA (HEPARIN LEVEL)on HEPARIN UNFRACTIONATED (U/ML) IN PPP BY CHROMOGENIC METHOD 0.30 IU/mL Normal 0.3-0.7 [facility] Comment on above: Result Comment: Masha roxaban and Apixaban will interfere with the anti Xa assay used to monitor UFH and LMWH. Performed By: #### L [id number] ####[facility] ([facility])[address] [facility] [place] [address] HEPARIN UNFRACTIONATED (U/ML) IN PPP BY CHROMOGENIC METHOD 0.38 IU/mL Normal 0.3-0.7 [facility] Comment on above: Result Comment: [place] roxaban and Apixaban will interfere with the anti Xa assay used to monitor UFH and LMWH. Performed By: #### L [id number] ####[facility] ([facility])[address] [facility] [place] [address] HEPARIN UNFRACTIONATED (U/ML) IN PPP BY CHROMOGENIC METHOD 0.35 IU/mL Normal 0.3-0.7 [facility] Comment on above: Result Comment: Ho [place] roxaban and Apixaban will interfere with the anti Xa assay used to monitor UFH and LMWH. Performed By: #### L [id number] ####[facility] ([facility])[address] [place] [address] HEPARIN UNFRACTIONATED (U/ML) IN PPP BY CHROMOGENIC METHOD 0.29 IU/mL Low 0.3-0.7 [facility] Comment on above: Result Comment: Masha roxaban and Apixaban will interfere with the anti Xa assay used to monitor UFH and LMWH. Performed By: #### L [id number] ####[facility] ([facility])[address] [place] [address] BASIC METABOLIC PANELon 09-09 Anion gap [Moles/Vol] 8 mmol/L Normal 7-20 [facility] Comment on above: Performed By: #### L [id number] ####[facility] ([facility])[address] [place] [address] Calcium [Mass/Vol] 7.9 mg/dL Low 8.6-10.3 [facility] Comment on above: Performed By: #### L [id number] ####[facility] ([facility])[address] [place] [address] Chloride [Moles/Vol] 104 mmol/L Normal 98-[address] [facility] Comment on above: Performed By: #### L [id number] ####[facility] ([facility])[address] [place] [address] CO2 [Moles/Vol] 26 mmol/L Normal 21-31 [facility] Comment on above: Performed By: #### L [id number] ####[facility] ([facility])[address] [place] [address] Creatinine [Mass/Vol] 0.44 mg/dL Low 0.70-1.30 [facility] Comment on above: Performed By: #### L [id number] ####[facility] ([facility])[address] [place] [address] GLOMERULAR FILTRATION RATE ML/MIN/1.73 SQ M.PREDICTED 109.9 mL/min/1.73m*2 Normal >60.0 [facility] Comment on above: Result Comment: [facility]???s estimated glomerular filtration rate (eGFR) will [...] of individuals. Performed By: #### L [id number] ####[facility] ([facility])[address] [place] [address] Glucose [Mass/Vol] 110 mg/dL High 70-100 [facility] Comment on above: Performed By: #### L [id number] ####[facility] ([facility])[address] [place] [address] Potassium [Moles/Vol] 3.7 mmol/L Normal 3.5-5.1 [facility] Comment on above: Performed By: #### L [id number] ####[facility] ([facility])[address] [place] [address] Sodium [Moles/Vol] 134 mmol/L Low 136-145 [facility] Comment on above: Performed By: #### L [id number] ####[facility] ([facility])[address] [place] [address] Urea nitrogen [Mass/Vol] 16 mg/dL Normal 7-25 [facility] Comment on above: Performed By: #### L [id number] ####[facility] ([facility])[address] [place] [address] UREA NITROGEN/CREATININE (MASS RATIO) IN SER/PLAS 36.4 Normal [facility] Comment on above: Performed By: #### L [id number] ####[facility] ([facility])[address] [place] [address] CBC WITH AUTO DIFFERENTIALon 09-23-2023 Erythrocyte distribution width (RBC) [Ratio] 17.6 % High 11.5-15.0 [facility] Comment on above: Performed By: #### L [id number] ####[facility] ([facility])[address] [place] [address] ERYTHROCYTE MEAN CORPUSCULAR HEMOGLOBIN CONCENTRATION (G/DL) BY AUTOMATED 32.3 g/dL Normal 32.0-35.0 [facility] Comment on above: Performed By: #### L [id number] ####[facility] ([facility])[address] [place] [address] Hematocrit (Bld) [Volume fraction] 23.5 % Low 39.0-55.0 [facility] Comment on above: Performed By: #### L [id number] ####[facility] ([facility])[address] [place] [address] Hemoglobin (Bld) [Mass/Vol] 7.6 g/dL Low 13.0-17.0 [facility] Comment on above: Result Comment: Resu lts checked pt has wound vac after surgery on 09/22/23 Performed By: #### L [id number] ####[facility] ([facility])[address] [place] [address] IMMATURE PLATELET FRACTION % 2.3 % Normal 0.8-6.3 [facility] Comment on above: Performed By: #### L [id number] ####[facility] ([facility])[address] [place] [address] MCH (RBC) [Entitic mass] 27.7 pg Normal 27.0-33.0 [facility] Comment on above: Performed By: #### L [id number] ####[facility] ([facility])[address] [place] [address] MCV (RBC) [Entitic vol] 85.8 fL Normal 82.0-98.0 [facility] Comment on above: Performed By: #### L [id number] ####[facility] ([facility])[address] [place] [address] NRBC (PER 100 WBCS) BY AUTOMATED COUNT 0.0 % Normal 0 [facility] Comment on above: Performed By: #### L [id number] ####[facility] ([facility])[address] [place] [address] PLATELETS (10*3/UL) IN BLOOD AUTOMATED COUNT 71 10*3/uL Low 150-400 [facility] Comment on above: Result Comment: Last plt 109 1d Performed By: #### L [id number] ####[facility] ([facility])[address] [place] [address] RBC (Bld) [#/Vol] 2.74 10*6/uL Low 4.20-5.70 [facility] Comment on above: Performed By: #### L [id number] ####[facility] ([facility])[address] [place] [address] WBC (Bld) [#/Vol] 2.37 10*3/uL Low 4.00-10.60 [facility] Comment on above: Performed By: #### L [id number] ####[facility] ([facility])[address] [place] [address] HEMOGLOBIN AND HEMATOCRIT, B LOODon 09-23-2023 Hematocrit (Bld) [Volume fraction] 26.5 % Low 39.0-55.0 [facility] Comment on above: Performed By: #### L [id number] ####[facility] ([facility])[address] [place] [address] Hemoglobin (Bld) [Mass/Vol] 8.4 g/dL Low 13.0-17.0 [facility] Comment on above: Performed By: #### L [id number] ####[facility] ([facility])[address] [place] [address] Hematocrit (Bld) [Volume fraction] 24.0 % Low 39.0-55.0 [facility] Comment on above: Performed By: #### L [id number] ####[facility] ([facility])[address] [place] [address] Hemoglobin (Bld) [Mass/Vol] 7.7 g/dL Low 13.0-17.0 [facility] Comment on above: Performed By: #### L [id number] ####[facility] ([facility])[address] [place] [address] MAGNESIUMon 09-23-2023 Magnesium [Mass/Vol] 1.6 mg/dL Low 1.9-2.[address] [facility] Comment on above: Performed By: #### L [id number] ####[facility] ([facility])[address] [place] [address] MANUAL DIFFERENTIALon 2022 BASOPHILS (10*3/UL) IN BLOOD BY CALCULATION 0.01 10*3/uL Normal 0.00-0.20 [facility] Comment on above: Performed By: #### L [id number] ####[facility] ([facility])[address] [place] [address] BASOPHILS/100 LEUKOCYTES IN BLOOD BY AUTOMATED COUNT 0.4 % Normal 0.0-1.0 [facility] Comment on above: Performed By: #### L [id number] ####[facility] ([facility])[address] [place] [address] EOSINOPHILS (10*3/UL) IN BLOOD BY CALCULATION 0.04 10*3/uL Normal 0.00-0.50 [facility] Comment on above: Performed By: #### L [id number] ####[facility] ([facility])[address] [place] [address] EOSINOPHILS/100 LEUKOCYTES IN BLOOD BY AUTOMATED COUNT 1.7 % Normal 0.0-6.0 [facility] Comment on above: Performed By: #### L [id number] ####[facility] ([facility])[address] [place] [address] IMMATURE GRANULOCYTES (10*3/UL) IN BLOOD BY CALCULATION 0.01 10*3/uL Normal 0.00-0.20 [facility] Comment on above: Performed By: #### L [id number] ####[facility] ([facility])[address] [place] [address] IMMATURE GRANULOCYTES/100 LEUKOCYTES IN BLOOD BY AUTOMATED COUNT 0.4 % Normal 0.0-1.0 [facility] Comment on above: Performed By: #### L [id number] ####[facility] ([facility])[address] [address] LYMPHOCYTES (10*3/UL) IN BLOOD BY CALCULATION 0.36 10*3/uL Low 1.20-4.00 [facility] Comment on above: Performed By: #### L [id number] ####[facility] ([facility])[address] [address] LYMPHOCYTES/100 LEUKOCYTES IN BLOOD BY AUTOMATED COUNT 15.2 % Low 20.0-45.0 [facility] Comment on above: Performed By: #### L [id number] ####[facility] ([facility])[address] [address] MONOCYTES (10*3/UL) IN BLOOD BY CALCUATION 0.18 10*3/uL Normal 0.10-1.00 [facility] Comment on above: Performed By: #### L [id number] ####[facility] ([facility])[address] [address] MONOCYTES/100 LEUKOCYTES IN BLOOD BY AUTOMATED COUNT 7.6 % Normal 5.0-12.0 [facility] Comment on above: Performed By: #### L [id number] ####[facility] ([facility])[address] [address] NEUTROPHILS (10*3/UL) IN BLOOD BY CALCULATION 1.8 10*3/uL Normal 1.6-7.6 [facility] Comment on above: Performed By: #### L [id number] ####[facility] ([facility])[address] [address] NEUTROPHILS/100 LEUKOCYTES IN BLOOD BY AUTOMATED COUNT 74.7 % High 40.0-72.0 [facility] Comment on above: Performed By: #### L [id number] ####[facility] ([facility])[address] [address] PHOSPHORUSon 09-23-2023 Magnesium [Mass/Vol] 2.4 mg/dL Low 2.5-5.[address] [facility] Comment on above: Performed By: #### L [id number] ####[facility] ([facility])[address] [place] [address] POCT GLUCOSE METER UNSOLICIT ED RESULTSon 09-23-2023 Glucose [Mass/Vol] 188 mg/dL High 70-105 [facility] Comment on above: Order Comment: Waive d Testing in the ED is performed under the ED CLIA certificate #[id number]. Result Comment: [email or web address] Performed By: #### L [id number] ####[facility] ([facility])[address] [place] [address] Glucose [Mass/Vol] 158 mg/dL High 70-105 [facility] Comment on above: Order Comment: Waive d Testing in the ED is performed under the ED CLIA certificate #[id number]. Result Comment: [email or web address] Performed By: #### L [id number] ####[facility] ([facility])[address] [place] [address] Glucose [Mass/Vol] 252 mg/dL High 70-105 [facility] Comment on above: Order Comment: Waive d Testing in the ED is performed under the ED CLIA certificate #[id number]. Result Comment: [email or web address] Performed By: #### L [id number] ####[facility] ([facility])[address] [place] [address] Glucose [Mass/Vol] 120 mg/dL High 70-105 [facility] Comment on above: Order Comment: Waive d Testing in the ED is performed under the ED CLIA certificate #[id number]. Result Comment: [email or web address] Performed By: #### L [id number] ####[facility] ([facility])[address] [place] [address] VANCOMYCIN, PEAKon 3 VANCOMYCIN (UG/ML) IN SER/PLAS - PEAK 23.7 ug/mL Normal 20.0-50.0 [facility] Comment on above: Performed By: #### L [id number] ####[facility] ([facility])[address] [facility] [place] [address] 30on 09-22-2023 30 Normal [facility] 30 Normal [facility] 30 Normal [facility] 30 Normal [facility] ANTI-XA (HEPARIN LEVEL)on HEPARIN UNFRACTIONATED (U/ML) IN PPP BY CHROMOGENIC METHOD 0.21 IU/mL Low 0.3-0.7 [facility] Comment on above: Order Comment: Check anti-Xa level every 6 hours while on heparin infusion, or per protocol. Result Comment: Masha roxaban and Apixaban will interfere with the anti Xa assay used to monitor UFH and LMWH. Performed By: #### L [id number] ####[facility] ([facility])[address] [place] [address] HEPARIN UNFRACTIONATED (U/ML) IN PPP BY CHROMOGENIC METHOD 0.25 IU/mL Low 0.3-0.7 [facility] Comment on above: Order Comment: Check anti-Xa level every 6 hours while on heparin infusion, or per protocol. Result Comment: Ho Ho Kus roxaban and Apixaban will interfere with the anti Xa assay used to monitor UFH and LMWH. Performed By: #### L [id number] ####[facility] ([facility])[address] [place] [address] HEPARIN UNFRACTIONATED (U/ML) IN PPP BY CHROMOGENIC METHOD 0.22 IU/mL Low 0.3-0.7 [facility] Comment on above: Result Comment: Masha roxaban and Apixaban will interfere with the anti Xa assay used to monitor UFH and LMWH. Performed By: #### L [id number] ####[facility] ([facility])[address] [place] [address] HEPARIN UNFRACTIONATED (U/ML) IN PPP BY CHROMOGENIC METHOD 0.22 IU/mL Low 0.3-0.7 [facility] Comment on above: Order Comment: Check anti-Xa level every 6 hours while on heparin infusion, or per protocol. Result Comment: Ho Ho Kus roxaban and Apixaban will interfere with the anti Xa assay used to monitor UFH and LMWH. Performed By: #### L [id number] ####[facility] ([facility])[address] [place] [address] HEPARIN UNFRACTIONATED (U/ML) IN PPP BY CHROMOGENIC METHOD 0.18 IU/mL Low 0.3-0.7 [facility] Comment on above: Order Comment: Check anti-Xa level every 6 hours while on heparin infusion, or per protocol. Result Comment: Masha roxaban and Apixaban will interfere with the anti Xa assay used to monitor UFH and LMWH. Performed By: #### L [id number] ####[facility] ([facility])[address] [place] [address] BASIC METABOLIC PANELon 09-09 Anion gap [Moles/Vol] 8 mmol/L Normal 7-20 [facility] Comment on above: Performed By: #### L [id number] ####[facility] ([facility])[address] [place] [address] Calcium [Mass/Vol] 8.0 mg/dL Low 8.6-10.3 [facility] Comment on above: Performed By: #### L [id number] ####[facility] ([facility])[address] [place] [address] Chloride [Moles/Vol] 102 mmol/L Normal 98-[address] [facility] Comment on above: Performed By: #### L [id number] ####[facility] ([facility])[address] [place] [address] CO2 [Moles/Vol] 26 mmol/L Normal 21-31 [facility] Comment on above: Performed By: #### L [id number] ####[facility] ([facility])[address] [place] [address] Creatinine [Mass/Vol] 0.41 mg/dL Low 0.70-1.30 [facility] Comment on above: Performed By: #### L [id number] ####[facility] ([facility])[address] [place] [address] GLOMERULAR FILTRATION RATE ML/MIN/1.73 SQ M.PREDICTED 112.2 mL/min/1.73m*2 Normal >60.0 [facility] Comment on above: Result Comment: [facility]???s estimated glomerular filtration rate (eGFR) will [...] of individuals. Performed By: #### L [id number] ####[facility] ([facility])[address] [place] [address] Glucose [Mass/Vol] 110 mg/dL High 70-100 [facility] Comment on above: Performed By: #### L [id number] ####[facility] ([facility])[address] [place] [address] Potassium [Moles/Vol] 3.7 mmol/L Normal 3.5-5.1 [facility] Comment on above: Performed By: #### L [id number] ####[facility] ([facility])[address] [place] [address] Sodium [Moles/Vol] 132 mmol/L Low 136-145 [facility] Comment on above: Performed By: #### L [id number] ####[facility] ([facility])[address] [place] [address] Urea nitrogen [Mass/Vol] 16 mg/dL Normal 7-25 [facility] Comment on above: Performed By: #### L [id number] ####[facility] ([facility])[address] [place] [address] UREA NITROGEN/CREATININE (MASS RATIO) IN SER/PLAS 39.0 Normal [facility] Comment on above: Performed By: #### L [id number] ####[facility] ([facility])[address] [place] [address] CBC WITH AUTO DIFFERENTIALon 09-22-2023 Basophils (Bld) [#/Vol] 0.00 10*3/uL Normal 0.00-0.20 [facility] Comment on above: Performed By: #### L [id number] ####[facility] ([facility])[address] [place] [address] Basophils/100 WBC (Bld) 0.0 % Normal 0.0-1.0 [facility] Comment on above: Performed By: #### L [id number] ####[facility] ([facility])[address] [place] [address] Eosinophils (Bld) [#/Vol] 0.03 10*3/uL Normal 0.00-0.50 [facility] Comment on above: Performed By: #### L [id number] ####[facility] ([facility])[address] [place] [address] Eosinophils/100 WBC (Bld) 0.7 % Normal 0.0-6.0 [facility] Comment on above: Performed By: #### L [id number] ####[facility] ([facility])[place] [address] Erythrocyte distribution width (RBC) [Ratio] 17.6 % High 11.5-15.0 [facility] Comment on above: Performed By: #### L [id number] ####[facility] ([facility])[address] [place] [address] ERYTHROCYTE MEAN CORPUSCULAR HEMOGLOBIN CONCENTRATION (G/DL) BY AUTOMATED 32.2 g/dL Normal 32.0-35.0 [facility] Comment on above: Performed By: #### L [id number] ####[facility] ([facility])[address] [place] [address] Hematocrit (Bld) [Volume fraction] 27.6 % Low 39.0-55.0 [facility] Comment on above: Performed By: #### L [id number] ####[facility] ([facility])[address] [place] [address] Hemoglobin (Bld) [Mass/Vol] 8.9 g/dL Low 13.0-17.0 [facility] Comment on above: Performed By: #### L [id number] ####[facility] ([facility])[address] [place] [address] Immature granulocytes (Bld) [#/Vol] 0.02 10*3/uL Normal 0.00-0.20 [facility] Comment on above: Performed By: #### L [id number] ####[facility] ([facility])[address] [place] [address] Immature granulocytes/100 WBC (Bld) 0.5 % Normal 0.0-1.0 [facility] Comment on above: Performed By: #### L [id number] ####[facility] ([facility])[address] [place] [address] Lymphocytes (Bld) [#/Vol] 0.45 10*3/uL Low 1.20-4.00 [facility] Comment on above: Performed By: #### L [id number] ####[facility] ([facility])[address] [place] [address] Lymphocytes/100 WBC (Bld) 10.6 % Low 20.0-45.0 [facility] Comment on above: Performed By: #### L [id number] ####[facility] ([facility])[address] [place] [address] MCH (RBC) [Entitic mass] 27.5 pg Normal 27.0-33.0 [facility] Comment on above: Performed By: #### L [id number] ####[facility] ([facility])[address] [place] [address] MCV (RBC) [Entitic vol] 85.2 fL Normal 82.0-98.0 [facility] Comment on above: Performed By: #### L [id number] ####[facility] ([facility])[address] [place] [address] Monocytes (Bld) [#/Vol] 0.45 10*3/uL Normal 0.10-1.00 [facility] Comment on above: Performed By: #### L [id number] ####[facility] ([facility])[address] [place] [address] Monocytes/100 WBC (Bld) 10.6 % Normal 5.0-12.0 [facility] Comment on above: Performed By: #### L [id number] ####[facility] ([facility])[address] [place] [address] Neutrophils (Bld) [#/Vol] 3.28 10*3/uL Normal 1.60-7.60 [facility] Comment on above: Performed By: #### L [id number] ####[facility] ([facility])[address] [place] [address] Neutrophils/100 WBC (Bld) 77.6 % High 40.0-72.0 [facility] Comment on above: Performed By: #### L [id number] ####[facility] ([facility])[address] [place], [place] [address] NRBC (PER 100 WBCS) BY AUTOMATED COUNT 0.0 % Normal 0 [facility] Comment on above: Performed By: #### L [id number] ####[facility] ([facility])[address] [place] [address] PLATELETS (10*3/UL) IN BLOOD AUTOMATED COUNT 109 10*3/uL Low 150-400 [facility] Comment on above: Performed By: #### L [id number] ####[facility] ([facility])[address] [place] [address] RBC (Bld) [#/Vol] 3.24 10*6/uL Low 4.20-5.70 [facility] Comment on above: Performed By: #### L [id number] ####[facility] ([facility])[address] [place] [address] WBC (Bld) [#/Vol] 4.23 10*3/uL Normal 4.00-10.60 [facility] Comment on above: Performed By: #### L [id number] ####[facility] ([facility])[address] [place] [address] HEMOGLOBIN AND HEMATOCRIT, B LOODon 09-22-2023 Hematocrit (Bld) [Volume fraction] 30.1 % Low 39.0-55.0 [facility] Comment on above: Performed By: #### L [id number] ####[facility] ([facility])[address] [place] [address] Hemoglobin (Bld) [Mass/Vol] 9.8 g/dL Low 13.0-17.0 [facility] Comment on above: Performed By: #### L [id number] ####[facility] ([facility])[address] [place] [address] MAGNESIUMon 09-22-2023 Magnesium [Mass/Vol] 1.7 mg/dL Low 1.9-2.[address] [facility] Comment on above: Performed By: #### L [id number] ####[facility] ([facility])[address] [place] [address] PHOSPHORUSon 09-22-2023 Magnesium [Mass/Vol] 2.0 mg/dL Low 2.5-5.[address] [facility] Comment on above: Performed By: #### L [id number] ####[facility] ([facility])[address] [place] [address] POCT GLUCOSE METER UNSOLICIT ED RESULTSon 09-22-2023 Glucose [Mass/Vol] 102 mg/dL Normal 70-105 [facility] Comment on above: Order Comment: Waive d Testing in the ED is performed under the ED CLIA certificate #[id number]. Result Comment: [email or web address] Performed By: #### L [id number] ####[facility] ([facility])[address] [place] [address] Glucose [Mass/Vol] 212 mg/dL High 70-105 [facility] Comment on above: Order Comment: Waive d Testing in the ED is performed under the ED CLIA certificate #[id number]. Result Comment: [email or web address] Performed By: #### L [id number] ####[facility] ([facility])[address] [place] [address] Glucose [Mass/Vol] 177 mg/dL High 70-105 [facility] Comment on above: Order Comment: Waive d Testing in the ED is performed under the ED CLIA certificate #[id number]. Result Comment: [email or web address] Performed By: #### L [id number] ####[facility] ([facility])[address] [place] [address] VANCOMYCIN, TROUGHon 023 VANCOMYCIN (UG/ML) IN SER/PLAS - TROUGH 6.1 ug/mL Normal 5.0-20.0 [facility] Comment on above: Order Comment: Les e collect the trough at least one hour before the 0800 dose due Performed By: #### L [id number] ####[facility] ([facility])[address] [place] [address] 30on 09-21-2023 30 Normal [facility] 30 Normal [facility] ANTI-XA (HEPARIN LEVEL)on HEPARIN UNFRACTIONATED (U/ML) IN PPP BY CHROMOGENIC METHOD 0.14 IU/mL Invalid Interpretation Code 0.3-0.7 [facility] Comment on above: Order Comment: Check anti-Xa level every 6 hours while on heparin infusion, or per protocol. Result Comment: [employer] roxaban and Apixaban will interfere with the anti Xa assay used to monitor UFH and LMWH. Performed By: #### L [id number] ####[facility] ([facility])[address] [place] [address] HEPARIN UNFRACTIONATED (U/ML) IN PPP BY CHROMOGENIC METHOD <0.10 Invalid Interpretation Code 0.3-0.7 [facility] Comment on above: Result Comment: Ho Ho Kus roxaban and Apixaban will interfere with the anti Xa assay used to monitor UFH and LMWH. Performed By: #### L [id number] ####[facility] ([facility])[address] [place] [address] APTTon 09-21-2023 ACTIVATED PARTIAL THROMBOPLASTIN TIME IN PPP BY COAGULATION ASSAY 35.8 Seconds High 25.0-35.0 [facility] Comment on above: Order Comment: Basel ine aPTT before initiating heparin infusion. Result Comment: Clin ical significance of the APTT is questionable in the presence of heparin. Performed By: #### L [id number] ####[facility] ([facility])[address] [place] [address] BASIC METABOLIC PANELon 09-09 Anion gap [Moles/Vol] 12 mmol/L Normal 7-20 [facility] Comment on above: Performed By: #### L [id number] ####[facility] ([facility])[address] [place] [address] Calcium [Mass/Vol] 7.9 mg/dL Low 8.6-10.3 [facility] Comment on above: Performed By: #### L [id number] ####[facility] ([facility])[address] [place] [address] Chloride [Moles/Vol] 100 mmol/L Normal 98-[address] [facility] Comment on above: Performed By: #### L [id number] ####[facility] ([facility])[address] [place] [address] CO2 [Moles/Vol] 23 mmol/L Normal 21-31 [facility] Comment on above: Performed By: #### L [id number] ####[facility] ([facility])[address] [place] [address] Creatinine [Mass/Vol] 0.61 mg/dL Low 0.70-1.30 [facility] Comment on above: Performed By: #### L [id number] ####[facility] ([facility])[address] [place] [address] GLOMERULAR FILTRATION RATE ML/MIN/1.73 SQ M.PREDICTED 99.5 mL/min/1.73m*2 Normal >60.0 [facility] Comment on above: Result Comment: [facility]???s estimated glomerular filtration rate (eGFR) will [...] of individuals. Performed By: #### L [id number] ####[facility] ([facility])[address] [place] [address] Glucose [Mass/Vol] 246 mg/dL High 70-100 [facility] Comment on above: Performed By: #### L [id number] ####[facility] ([facility])[address] [place] [address] Potassium [Moles/Vol] 3.5 mmol/L Normal 3.5-5.1 [facility] Comment on above: Performed By: #### L [id number] ####[facility] ([facility])[address] [place] [address] Sodium [Moles/Vol] 131 mmol/L Low 136-145 [facility] Comment on above: Performed By: #### L [id number] ####[facility] ([facility])[address] [place] [address] Urea nitrogen [Mass/Vol] 15 mg/dL Normal 7-25 [facility] Comment on above: Performed By: #### L [id number] ####[facility] ([facility])[address] [place] [address] UREA NITROGEN/CREATININE (MASS RATIO) IN SER/PLAS 24.6 Normal [facility] Comment on above: Performed By: #### L [id number] ####[facility] ([facility])[address] [place] [address] Anion gap [Moles/Vol] 8 mmol/L Normal 7-20 [facility] Comment on above: Performed By: #### L [id number] ####[facility] ([facility])[address] [place] [address] Calcium [Mass/Vol] 8.5 mg/dL Low 8.6-10.3 [facility] Comment on above: Performed By: #### L [id number] ####[facility] ([facility])[address] [place] [address] Chloride [Moles/Vol] 101 mmol/L Normal 98-[address] [facility] Comment on above: Performed By: #### L [id number] ####[facility] ([facility])[address] [place] [address] CO2 [Moles/Vol] 28 mmol/L Normal 21-31 [facility] Comment on above: Performed By: #### L [id number] ####[facility] ([facility])[address] [place] [address] Creatinine [Mass/Vol] 0.49 mg/dL Low 0.70-1.30 [facility] Comment on above: Performed By: #### L [id number] ####[facility] ([facility])[address] [place] [address] GLOMERULAR FILTRATION RATE ML/MIN/1.73 SQ M.PREDICTED 106.4 mL/min/1.73m*2 Normal >60.0 [facility] Comment on above: Result Comment: [facility]???s estimated glomerular filtration rate (eGFR) will [...] of individuals. Performed By: #### L [id number] ####[facility] ([facility])[address] [place] [address] Glucose [Mass/Vol] 113 mg/dL High 70-100 [facility] Comment on above: Performed By: #### L [id number] ####[facility] ([facility])[address] [place] [address] Potassium [Moles/Vol] 3.9 mmol/L Normal 3.5-5.1 [facility] Comment on above: Performed By: #### L [id number] ####[facility] ([facility])[address] [place] [address] Sodium [Moles/Vol] 133 mmol/L Low 136-145 [facility] Comment on above: Performed By: #### L [id number] ####[facility] ([facility])[address] [place] [address] Urea nitrogen [Mass/Vol] 13 mg/dL Normal 7-25 [facility] Comment on above: Performed By: #### L [id number] ####[facility] ([facility])[address] [place] [address] UREA NITROGEN/CREATININE (MASS RATIO) IN SER/PLAS 26.5 Normal [facility] Comment on above: Performed By: #### L [id number] ####[facility] ([facility])[address] [place] [address] CBC WITH AUTO DIFFERENTIALon 09-21-2023 Basophils (Bld) [#/Vol] 0.01 10*3/uL Normal 0.00-0.20 [facility] Comment on above: Performed By: #### L [id number] ####[facility] ([facility])[address] [place] [address] Basophils/100 WBC (Bld) 0.2 % Normal 0.0-1.0 [facility] Comment on above: Performed By: #### L [id number] ####[facility] ([facility])[address] [place] [address] Eosinophils (Bld) [#/Vol] 0.01 10*3/uL Normal 0.00-0.50 [facility] Comment on above: Performed By: #### L [id number] ####[facility] ([facility])[address] [place] [address] Eosinophils/100 WBC (Bld) 0.2 % Normal 0.0-6.0 [facility] Comment on above: Performed By: #### L [id number] ####[facility] ([facility])[address] [place] [address] Erythrocyte distribution width (RBC) [Ratio] 18.0 % High 11.5-15.0 [facility] Comment on above: Performed By: #### L [id number] ####[facility] ([facility])[address] [place] [address] ERYTHROCYTE MEAN CORPUSCULAR HEMOGLOBIN CONCENTRATION (G/DL) BY AUTOMATED 31.8 g/dL Low 32.0-35.0 [facility] Comment on above: Performed By: #### L [id number] ####[facility] ([facility])[address] [place] [address] Hematocrit (Bld) [Volume fraction] 31.8 % Low 39.0-55.0 [facility] Comment on above: Performed By: #### L [id number] ####[facility] ([facility])[address] [place] [address] Hemoglobin (Bld) [Mass/Vol] 10.1 g/dL Low 13.0-17.0 [facility] Comment on above: Performed By: #### L [id number] ####[facility] ([facility])[address] [place] [address] Immature granulocytes (Bld) [#/Vol] 0.03 10*3/uL Normal 0.00-0.20 [facility] Comment on above: Performed By: #### L [id number] ####[facility] ([facility])[address] [place] [address] Immature granulocytes/100 WBC (Bld) 0.5 % Normal 0.0-1.0 [facility] Comment on above: Performed By: #### L [id number] ####[facility] ([facility])[address] [place] [address] Lymphocytes (Bld) [#/Vol] 0.43 10*3/uL Low 1.20-4.00 [facility] Comment on above: Performed By: #### L [id number] ####[facility] ([facility])[address] [place] [address] Lymphocytes/100 WBC (Bld) 7.4 % Low 20.0-45.0 [facility] Comment on above: Performed By: #### L [id number] ####[facility] ([facility])[address] [place] [address] MCH (RBC) [Entitic mass] 26.9 pg Low 27.0-33.0 [facility] Comment on above: Performed By: #### L [id number] ####[facility] ([facility])[address] [place] [address] MCV (RBC) [Entitic vol] 84.8 fL Normal 82.0-98.0 [facility] Comment on above: Performed By: #### L [id number] ####[facility] ([facility])[address] [place] [address] Monocytes (Bld) [#/Vol] 0.56 10*3/uL Normal 0.10-1.00 [facility] Comment on above: Performed By: #### L [id number] ####[facility] ([facility])[address] [place] [address] Monocytes/100 WBC (Bld) 9.6 % Normal 5.0-12.0 [facility] Comment on above: Performed By: #### L [id number] ####[facility] ([facility])[address] [place] [address] Neutrophils (Bld) [#/Vol] 4.81 10*3/uL Normal 1.60-7.60 [facility] Comment on above: Performed By: #### L [id number] ####[facility] ([facility])[address] [address] Neutrophils/100 WBC (Bld) 82.1 % High 40.0-72.0 [facility] Comment on above: Performed By: #### L [id number] ####[facility] ([facility])[address] [address] NRBC (PER 100 WBCS) BY AUTOMATED COUNT 0.0 % Normal 0 [facility] Comment on above: Performed By: #### L [id number] ####[facility] ([facility])[address] [address] PLATELETS (10*3/UL) IN BLOOD AUTOMATED COUNT 122 10*3/uL Low 150-400 [facility] Comment on above: Performed By: #### L [id number] ####[facility] ([facility])[address] [address] RBC (Bld) [#/Vol] 3.75 10*6/uL Low 4.20-5.70 [facility] Comment on above: Performed By: #### L [id number] ####[facility] ([facility])[address] [address] WBC (Bld) [#/Vol] 5.85 10*3/uL Normal 4.00-10.60 [facility] Comment on above: Performed By: #### L [id number] ####[facility] ([facility])[address] [address] CONSULTon 09-21-2023 CONSULT Normal [facility] HEMOGLOBIN AND HEMATOCRIT, B LOODon 09-21-2023 Hematocrit (Bld) [Volume fraction] 30.8 % Low 39.0-55.0 [facility] Comment on above: Performed By: #### L [id number] ####[facility] ([facility])[address] [address] Hemoglobin (Bld) [Mass/Vol] 10.2 g/dL Low 13.0-17.0 [facility] Comment on above: Performed By: #### L [id number] ####[facility] ([facility])[address] [place] [address] MAGNESIUMon 09-21-2023 Magnesium [Mass/Vol] 2.0 mg/dL Normal 1.9-2.[address] [facility] Comment on above: Performed By: #### L [id number] ####[facility] ([facility])[address] [place] [address] Magnesium [Mass/Vol] 1.5 mg/dL Low 1.9-2.[address] [facility] Comment on above: Performed By: #### L [id number] ####[facility] ([facility])[address] [place] [address] PHOSPHORUSon 09-21-2023 Magnesium [Mass/Vol] 3.0 mg/dL Normal 2.5-5.[address] [facility] Comment on above: Performed By: #### L [id number] ####[facility] ([facility])[address] [place] [address] PLATELET COUNTon 09-21-2023 PLATELETS (10*3/UL) IN BLOOD AUTOMATED COUNT 144 10*3/uL Low 150-400 [facility] Comment on above: Performed By: #### L [id number] ####[facility] ([facility])[address] [place] [address] POCT GLUCOSE METER UNSOLICIT ED RESULTSon 09-21-2023 Glucose [Mass/Vol] 154 mg/dL High 70-105 [facility] Comment on above: Order Comment: Waive d Testing in the ED is performed under the ED CLIA certificate #[id number]. Result Comment: [email or web address] Performed By: #### L [id number] ####[facility] ([facility])[address] [place] [address] Glucose [Mass/Vol] 217 mg/dL High 70-105 [facility] Comment on above: Order Comment: Waive d Testing in the ED is performed under the ED CLIA certificate #[id number]. Result Comment: [email or web address] Performed By: #### L [id number] ####[facility] ([facility])[address] [place] [address] Glucose [Mass/Vol] 105 mg/dL Normal 70-105 [facility] Comment on above: Order Comment: Waive d Testing in the ED is performed under the ED CLIA certificate #[id number]. Result Comment: [email or web address] Performed By: #### L [id number] ####[facility] ([facility])[address] [place] [address] Glucose [Mass/Vol] 108 mg/dL High 70-105 [facility] Comment on above: Order Comment: Waive d Testing in the ED is performed under the ED CLIA certificate #[id number]. Result Comment: [email or web address] Performed By: #### L [id number] ####[facility] ([facility])[address] [place] [address] VANCOMYCIN, PEAKon 3 VANCOMYCIN (UG/ML) IN SER/PLAS - PEAK 12.1 ug/mL Low 20.0-50.0 [facility] Comment on above: Order Comment: Les meléndez collect the peak at least 1 hour after the infusion has been completed Performed By: #### L [id number] ####[facility] ([facility])[address] [place] [address] [id number] 09-20-2023 [id number] Normal [facility] 30on 09-20-2023 30 The patient is Moderately Stable - Low risk of patient condition declining or worsening The patient's goals for the shift include comfort, safety The clinical goals for the shift include comfort,safety Normal [facility] ANESon 09-20-2023 ANES Normal [facility] BASIC METABOLIC PANELon 09-09 Anion gap [Moles/Vol] 9 mmol/L Normal 7-20 [facility] Comment on above: Performed By: #### L [id number] ####[facility] ([facility])[address] [place] [address] Calcium [Mass/Vol] 8.4 mg/dL Low 8.6-10.3 [facility] Comment on above: Performed By: #### L [id number] ####[facility] ([facility])[address] [place] [address] Chloride [Moles/Vol] 100 mmol/L Normal 98-[address] [facility] Comment on above: Performed By: #### L [id number] ####[facility] ([facility])[address] [place] [address] CO2 [Moles/Vol] 27 mmol/L Normal 21-31 [facility] Comment on above: Performed By: #### L [id number] ####[facility] ([facility])[address] [place] [address] Creatinine [Mass/Vol] 0.51 mg/dL Low 0.70-1.30 [facility] Comment on above: Performed By: #### L [id number] ####[facility] ([facility])[address] [place] [address] GLOMERULAR FILTRATION RATE ML/MIN/1.73 SQ M.PREDICTED 105.1 mL/min/1.73m*2 Normal >60.0 [facility] Comment on above: Result Comment: [facility]???s estimated glomerular filtration rate (eGFR) will [...] of individuals. Performed By: #### L [id number] ####[facility] ([facility])[address] [place] [address] Glucose [Mass/Vol] 117 mg/dL High 70-100 [facility] Comment on above: Performed By: #### L [id number] ####[facility] ([facility])[address] [place] [address] Potassium [Moles/Vol] 3.3 mmol/L Low 3.5-5.1 [facility] Comment on above: Performed By: #### L [id number] ####[facility] ([facility])[address] [place] [address] Sodium [Moles/Vol] 133 mmol/L Low 136-145 [facility] Comment on above: Performed By: #### L [id number] ####[facility] ([facility])[address] [place] [address] Urea nitrogen [Mass/Vol] 14 mg/dL Normal 7-25 [facility] Comment on above: Performed By: #### L [id number] ####[facility] ([facility])[address] [place] [address] UREA NITROGEN/CREATININE (MASS RATIO) IN SER/PLAS 27.5 Normal [facility] Comment on above: Performed By: #### L [id number] ####[facility] ([facility])[address] [place] [address] Anion gap [Moles/Vol] 11 mmol/L Normal 7-20 [facility] Comment on above: Performed By: #### L [id number] ####[facility] ([facility])[address] [place] [address] Calcium [Mass/Vol] 9.2 mg/dL Normal 8.6-10.3 [facility] Comment on above: Performed By: #### L [id number] ####[facility] ([facility])[address] [place] [address] Chloride [Moles/Vol] 102 mmol/L Normal 98-[address] [facility] Comment on above: Performed By: #### L [id number] ####[facility] ([facility])[address] [place] [address] CO2 [Moles/Vol] 25 mmol/L Normal 21-31 [facility] Comment on above: Performed By: #### L [id number] ####[facility] ([facility])[address] [place] [address] Creatinine [Mass/Vol] 0.53 mg/dL Low 0.70-1.30 [facility] Comment on above: Performed By: #### L [id number] ####[facility] ([facility])[address] [place] [address] GLOMERULAR FILTRATION RATE ML/MIN/1.73 SQ M.PREDICTED 103.9 mL/min/1.73m*2 Normal >60.0 [facility] Comment on above: Result Comment: [facility]???s estimated glomerular filtration rate (eGFR) will [...] of individuals. Performed By: #### L [id number] ####[facility] ([facility])[address] [place] [address] Glucose [Mass/Vol] 93 mg/dL Normal 70-100 [facility] Comment on above: Performed By: #### L [id number] ####[facility] ([facility])[address] [place] [address] Potassium [Moles/Vol] 3.7 mmol/L Normal 3.5-5.1 [facility] Comment on above: Performed By: #### L [id number] ####[facility] ([facility])[address] [place] [address] Sodium [Moles/Vol] 134 mmol/L Low 136-145 [facility] Comment on above: Performed By: #### L [id number] ####[facility] ([facility])[address] [place] [address] Urea nitrogen [Mass/Vol] 18 mg/dL Normal 7-25 [facility] Comment on above: Performed By: #### L [id number] ####[facility] ([facility])[address] [place] [address] UREA NITROGEN/CREATININE (MASS RATIO) IN SER/PLAS 34.0 Normal [facility] Comment on above: Performed By: #### L [id number] ####[facility] ([facility])[address] [place] [address] CBCon 09-20-2023 Erythrocyte distribution width (RBC) [Ratio] 18.0 % High 11.5-15.0 [facility] Comment on above: Performed By: #### L [id number] ####[facility] ([facility])[address] [place] [address] ERYTHROCYTE MEAN CORPUSCULAR HEMOGLOBIN CONCENTRATION (G/DL) BY AUTOMATED 31.9 g/dL Low 32.0-35.0 [facility] Comment on above: Performed By: #### L [id number] ####[facility] ([facility])[address] [place] [address] Hematocrit (Bld) [Volume fraction] 33.5 % Low 39.0-55.0 [facility] Comment on above: Performed By: #### L [id number] ####[facility] ([facility])[address] [place] [address] Hemoglobin (Bld) [Mass/Vol] 10.7 g/dL Low 13.0-17.0 [facility] Comment on above: Performed By: #### L [id number] ####[facility] ([facility])[address] [place] [address] MCH (RBC) [Entitic mass] 27.1 pg Normal 27.0-33.0 [facility] Comment on above: Performed By: #### L [id number] ####[facility] ([facility])[address] [place] [address] MCV (RBC) [Entitic vol] 84.8 fL Normal 82.0-98.0 [facility] Comment on above: Performed By: #### L [id number] ####[facility] ([facility])[address] [place] [address] PLATELETS (10*3/UL) IN BLOOD AUTOMATED COUNT 142 10*3/uL Low 150-400 [facility] Comment on above: Performed By: #### L [id number] ####[facility] ([facility])[address] [place] [address] RBC (Bld) [#/Vol] 3.95 10*6/uL Low 4.20-5.70 [facility] Comment on above: Performed By: #### L [id number] ####[facility] ([facility])[address] [place] [address] WBC (Bld) [#/Vol] 8.35 10*3/uL Normal 4.00-10.60 [facility] Comment on above: Performed By: #### L [id number] ####[facility] ([facility])[address] [place] [address] CBC WITH AUTO DIFFERENTIALon 09-20-2023 Basophils (Bld) [#/Vol] 0.00 10*3/uL Normal 0.00-0.20 [facility] Comment on above: Performed By: #### L [id number] ####[facility] ([facility])[address] [place] [address] Basophils/100 WBC (Bld) 0.0 % Normal 0.0-1.0 [facility] Comment on above: Performed By: #### L [id number] ####[facility] ([facility])[address] [place] [address] Eosinophils (Bld) [#/Vol] 0.00 10*3/uL Normal 0.00-0.50 [facility] Comment on above: Performed By: #### L [id number] ####[facility] ([facility])[address] [place] [address] Eosinophils/100 WBC (Bld) 0.0 % Normal 0.0-6.0 [facility] Comment on above: Performed By: #### L [id number] ####[facility] ([facility])[address] [place] [address] Erythrocyte distribution width (RBC) [Ratio] 17.4 % High 11.5-15.0 [facility] Comment on above: Performed By: #### L [id number] ####[facility] ([facility])[address] [place] [address] ERYTHROCYTE MEAN CORPUSCULAR HEMOGLOBIN CONCENTRATION (G/DL) BY AUTOMATED 32.1 g/dL Normal 32.0-35.0 [facility] Comment on above: Performed By: #### L [id number] ####[facility] ([facility])[address] [place] [address] Hematocrit (Bld) [Volume fraction] 36.5 % Low 39.0-55.0 [facility] Comment on above: Performed By: #### L [id number] ####[facility] ([facility])[address] [place] [address] Hemoglobin (Bld) [Mass/Vol] 11.7 g/dL Low 13.0-17.0 [facility] Comment on above: Performed By: #### L [id number] ####[facility] ([facility])[address] [place] [address] Immature granulocytes (Bld) [#/Vol] 0.03 10*3/uL Normal 0.00-0.20 [facility] Comment on above: Performed By: #### L [id number] ####[facility] (BEAKER)[address] [place] [address] Immature granulocytes/100 WBC (Bld) 0.4 % Normal 0.0-1.0 [facility] Comment on above: Performed By: #### L [id number] ####[facility] (BEAKER)[address] [place] [address] Lymphocytes (Bld) [#/Vol] 0.37 10*3/uL Low 1.20-4.00 [facility] Comment on above: Performed By: #### L [id number] ####[facility] (BEAKER)[address] [place] [address] Lymphocytes/100 WBC (Bld) 4.9 % Low 20.0-45.0 [facility] Comment on above: Performed By: #### L [id number] ####[facility] (BEAKER)[address] [place] [address] MCH (RBC) [Entitic mass] 27.4 pg Normal 27.0-33.0 [facility] Comment on above: Performed By: #### L [id number] ####[facility] ([facility])[address] [place] [address] MCV (RBC) [Entitic vol] 85.5 fL Normal 82.0-98.0 [facility] Comment on above: Performed By: #### L [id number] ####[facility] ([facility])[address] [place] [address] Monocytes (Bld) [#/Vol] 0.48 10*3/uL Normal 0.10-1.00 [facility] Comment on above: Performed By: #### L [id number] ####[facility] (BEAKER)[address] [place] [address] Monocytes/100 WBC (Bld) 6.3 % Normal 5.0-12.0 [facility] Comment on above: Performed By: #### L [id number] ####[facility] (BEAKER)[address] [place] [address] Neutrophils (Bld) [#/Vol] 6.73 10*3/uL Normal 1.60-7.60 [facility] Comment on above: Performed By: #### L [id number] ####[facility] (BEAKER)[address] [place] [address] Neutrophils/100 WBC (Bld) 88.4 % High 40.0-72.0 [facility] Comment on above: Performed By: #### L [id number] ####[facility] (BEAKER)[address] [place] [address] NRBC (PER 100 WBCS) BY AUTOMATED COUNT 0.0 % Normal 0 [facility] Comment on above: Performed By: #### L [id number] ####[facility] ([facility])[address] [place] [address] PLATELETS (10*3/UL) IN BLOOD AUTOMATED COUNT 122 10*3/uL Low 150-400 [facility] Comment on above: Performed By: #### L [id number] ####[facility] ([facility])[address] [place] [address] RBC (Bld) [#/Vol] 4.27 10*6/uL Normal 4.20-5.70 [facility] Comment on above: Performed By: #### L [id number] ####[facility] ([facility])[address] [place], [place] [address] WBC (Bld) [#/Vol] 7.61 10*3/uL Normal 4.00-10.60 [facility] Comment on above: Performed By: #### L [id number] ####[facility] ([facility])[address] [place] [address] CONSULTon 09-20-2023 CONSULT Normal [facility] CONSULT Normal [facility] DEVICE CULTUREon 09-20-2023 Bacteria identified Cx Nom (Unsp spec) No growth at 3 days Normal [facility] Comment on above: Order Comment: Pre-o p diagnosis:Peripheral artery disease (CMS/HCC) [I73.9] Performed By: #### D EVICE CULTURE ####[facility] ([facility])[address] [place] [address] Bacteria identified Cx Nom (Unsp spec) No growth at 3 days Normal [facility] Comment on above: Order Comment: Pre-o p diagnosis:Peripheral artery disease (CMS/HCC) [I73.9] Performed By: #### D EVICE CULTURE ####[facility] ([facility])[address] [place] [address] MAGNESIUMon 09-20-2023 Magnesium [Mass/Vol] 1.5 mg/dL Low 1.9-2.[address] [facility] Comment on above: Performed By: #### L [id number] ####[facility] (BEAKER)[address] [place] [address] Magnesium [Mass/Vol] 1.9 mg/dL Normal 1.9-2.[address] [facility] Comment on above: Performed By: #### L [id number] ####[facility] (BEAKER)[address] [place] [address] NURSNOTEon 09-20-2023 NURSNOTE Normal [facility] OPNOTEon 09-20-2023 OPNOTE Normal [facility] PHOSPHORUSon 09-20-2023 Magnesium [Mass/Vol] 2.9 mg/dL Normal 2.5-5.[address] [facility] Comment on above: Performed By: #### L [id number] ####[facility] (BEAKER)[address] [place] [address] Magnesium [Mass/Vol] 3.0 mg/dL Normal 2.5-5.[address] [facility] Comment on above: Performed By: #### L [id number] ####[facility] ([facility]ER)[address] [place] [address] POCT ACTIVATED CLOTTING TIME UNSOLICITED RESULTSon 09-20-2023 POC ACTIVATED CLOTTING TIME 154 sec High 82-152 [facility] Comment on above: Performed By: #### L [id number] ####[facility] ([facility]ER)[address] [place] [address] POC ACTIVATED CLOTTING TIME 199 sec High 82-152 [facility] Comment on above: Performed By: #### L [id number] ####[facility] ([facility]ER)[address] [place] [address] POC ACTIVATED CLOTTING TIME 222 sec High 82-152 [facility] Comment on above: Performed By: #### L [id number] ####[facility] ([facility]ER)[address] [place] [address] POC ACTIVATED CLOTTING TIME 154 sec High 82-152 [facility] Comment on above: Performed By: #### L [id number] ####[facility] ([facility])[address] [place] [address] POCT GLUCOSE METER UNSOLICIT ED RESULTSon 09-20-2023 Glucose [Mass/Vol] 156 mg/dL High 70-105 [facility] Comment on above: Order Comment: Waive d Testing in the ED is performed under the ED CLIA certificate #[id number]. Result Comment: [email or web address] Performed By: #### L [id number] ####[facility] ([facility])[address] [place] [address] Glucose [Mass/Vol] 105 mg/dL Normal 70-105 [facility] Comment on above: Order Comment: Waive d Testing in the ED is performed under the ED CLIA certificate #[id number]. Result Comment: [email or web address] Performed By: #### L [id number] ####[facility] ([facility])[address] [place] [address] POCT PERFUSION PANEL UNSOLIC ITED RESULTSon 09-20-2023 CO2 [Moles/Vol] 28.0 mmol/L Normal 21.0-29.0 [facility] Comment on above: Performed By: #### L [id number] ####[facility] ([facility])[address] [place] [address] Glucose [Mass/Vol] 152 mg/dL High 70-105 [facility] Comment on above: Performed By: #### L [id number] ####[facility] ([facility])[address] [place] [address] HCO3 (Bld) [Moles/Vol] 27.1 mmol/L Normal 23.0-28.0 [facility] Comment on above: Performed By: #### L [id number] ####[facility] (BEAKER)[address] [place] [address] Hematocrit (Bld) [Volume fraction] 32 % Low 38-51 [facility] Comment on above: Performed By: #### L [id number] ####[facility] (BEAKER)[address] [place] [address] Hemoglobin (Bld) [Mass/Vol] 10.9 g/dL Low 12.0-17.0 [facility] Comment on above: Performed By: #### L [id number] ####[facility] (BEAKER)[address] [place] [address] POCT BASE EXCESS 3.0 mmol/L Normal -2.0-3.0 [facility] Comment on above: Performed By: #### L [id number] ####[facility] (BEAKER)[address] [place] [address] POCT IONIZED CALCIUM 1.27 mmol/L Normal 1.12-1.32 [facility] Comment on above: Performed By: #### L [id number] ####[facility] (BEAKER)[address] [place] [address] POCT PCO2 40.5 mmHg Low 41.0-51.0 [facility] Comment on above: Performed By: #### L [id number] ####[facility] (BEAKER)[address] [place] [address] POCT PH 7.43 High 7.31-7.41 [facility] Comment on above: Performed By: #### L [id number] ####[facility] (BEAKER)[address] [place] [address] POCT PO2 280 mmHg High 80-105 [facility] Comment on above: Performed By: #### L [id number] ####[facility] (BEAKER)[address] [place] [address] POCT SO2 100 % High 95-98 [facility] Comment on above: Performed By: #### L [id number] ####[facility] (BEAKER)[address] [place] [address] Potassium [Moles/Vol] 3.0 mmol/L Low 3.5-4.9 [facility] Comment on above: Performed By: #### L [id number] ####[facility] (BEAKER)[address] [place] [address] Sodium [Moles/Vol] 135 mmol/L Low 138.0-146.0 [facility] Comment on above: Performed By: #### L [id number] ####[facility] (BEAKER)[address] [place] [address] CO2 [Moles/Vol] 29.0 mmol/L Normal 21.0-29.0 [facility] Comment on above: Performed By: #### L [id number] ####[facility] (BEAKER)[address] [place] [address] Glucose [Mass/Vol] 122 mg/dL High 70-105 [facility] Comment on above: Performed By: #### L [id number] ####[facility] (BEAKER)[address] [place] [address] HCO3 (Bld) [Moles/Vol] 27.9 mmol/L Normal 23.0-28.0 [facility] Comment on above: Performed By: #### L [id number] ####[facility] (BEAKER)[address] [place] [address] Hematocrit (Bld) [Volume fraction] 34 % Low 38-51 [facility] Comment on above: Performed By: #### L [id number] ####[facility] (BE[facility]ER)[address] [place] [address] Hemoglobin (Bld) [Mass/Vol] 11.6 g/dL Low 12.0-17.0 [facility] Comment on above: Performed By: #### L [id number] ####[facility] (BEAKER)[address] [place] [address] POCT BASE EXCESS 4.0 mmol/L High -2.0-3.0 [facility] Comment on above: Performed By: #### L [id number] ####[facility] ([facility]AKER)[address] [place] [address] POCT IONIZED CALCIUM 1.11 mmol/L Low 1.12-1.32 [facility] Comment on above: Performed By: #### L [id number] ####[facility] ([facility])[address] [place] [address] POCT PCO2 38.6 mmHg Low 41.0-51.0 [facility] Comment on above: Performed By: #### L [id number] ####[facility] ([facility])[address] [address] POCT PH 7.47 High 7.31-7.41 [facility] Comment on above: Performed By: #### L [id number] ####[facility] ([facility])[address] [place] [address] POCT PO2 284 mmHg High 80-105 [facility] Comment on above: Performed By: #### L [id number] ####[facility] ([facility])[address] [address] POCT SO2 100 % High 95-98 [facility] Comment on above: Performed By: #### L [id number] ####[facility] ([facility])[address] [place] [address] Potassium [Moles/Vol] 3.1 mmol/L Low 3.5-4.9 [facility] Comment on above: Performed By: #### L [id number] ####[facility] ([facility])[address] [place] [address] Sodium [Moles/Vol] 137 mmol/L Low 138.0-146.0 [facility] Comment on above: Performed By: #### L [id number] ####[facility] ([facility])[address] [place] [address] PROTIME-INRon 09-20-2023 INR IN PPP BY COAGULATION ASSAY 1.17 High 0.90-1.10 [facility] Comment on above: Result Comment: ACCC [...] CHEST 1995;[id number]. Performed By: #### L [id number] ####[facility] ([employer])[address] [place] [address] PROTHROMBIN TIME (PT) IN PPP BY COAGULATION ASSAY 14.9 Seconds High 12.3-14.8 [facility] Comment on above: Performed By: #### L [id number] ####[facility] ([employer])[address] [place] [address] TISSUE CULTUREon 09-20-2023 GRAM STAIN RESULT Normal [facility] Comment on above: Order Comment: Pre-o p diagnosis:Peripheral artery disease (CMS/HCC) [I73.9]Rare Growth Skin Rita Result Comment: Many Polymorphonuclear leukocytesNo organisms seen Performed By: #### L [id number] ####[facility] ([employer])[address] [place] [address] 30on 09-19-2023 30 Normal [facility] 30 Normal [facility] ANESon 09-19-2023 ANES Normal [facility] APTTon 09-19-2023 ACTIVATED PARTIAL THROMBOPLASTIN TIME IN PPP BY COAGULATION ASSAY 35.0 Seconds Normal 25.0-35.0 [facility] Comment on above: Result Comment: Clin ical significance of the APTT is questionable in the presence of heparin. Performed By: #### L [id number] ####[facility] ([facility])[address] [place] [address] BASIC METABOLIC PANELon 12- Anion gap [Moles/Vol] 7 mmol/L Normal 7-20 [facility] Comment on above: Performed By: #### L [id number] ####[facility] ([facility])[address] [place] [address] Calcium [Mass/Vol] 8.8 mg/dL Normal 8.6-10.3 [facility] Comment on above: Performed By: #### L [id number] ####[facility] ([facility])[address] [place] [address] Chloride [Moles/Vol] 103 mmol/L Normal 98-[address] [facility] Comment on above: Performed By: #### L [id number] ####[facility] ([facility])[address] [place] [address] CO2 [Moles/Vol] 28 mmol/L Normal 21-31 [facility] Comment on above: Performed By: #### L [id number] ####[facility] ([facility])[address] [place] [address] Creatinine [Mass/Vol] 0.46 mg/dL Low 0.70-1.30 [facility] Comment on above: Performed By: #### L [id number] ####[facility] ([facility])[address] [place] [address] GLOMERULAR FILTRATION RATE ML/MIN/1.73 SQ M.PREDICTED 108.4 mL/min/1.73m*2 Normal >60.0 [facility] Comment on above: Result Comment: [facility]???s estimated glomerular filtration rate (eGFR) will [...] of individuals. Performed By: #### L [id number] ####[facility] ([facility])[address] [place] [address] Glucose [Mass/Vol] 166 mg/dL High 70-100 [facility] Comment on above: Performed By: #### L [id number] ####[facility] ([facility])[address] [place] [address] Potassium [Moles/Vol] 3.8 mmol/L Normal 3.5-5.1 [facility] Comment on above: Performed By: #### L [id number] ####[facility] ([facility])[address] [place] [address] Sodium [Moles/Vol] 134 mmol/L Low 136-145 [facility] Comment on above: Performed By: #### L [id number] ####[facility] ([facility])[address] [place] [address] Urea nitrogen [Mass/Vol] 18 mg/dL Normal 7-25 [facility] Comment on above: Performed By: #### L [id number] ####[facility] ([facility])[address] [place] [address] UREA NITROGEN/CREATININE (MASS RATIO) IN SER/PLAS 39.1 Normal [facility] Comment on above: Performed By: #### L [id number] ####[facility] ([facility])[address] [place] [address] CBC WITH AUTO DIFFERENTIALon 09-19-2023 Basophils (Bld) [#/Vol] 0.00 10*3/uL Normal 0.00-0.20 [facility] Comment on above: Performed By: #### L [id number] ####[facility] ([facility])[address] [place] [address] Basophils/100 WBC (Bld) 0.0 % Normal 0.0-1.0 [facility] on above: Performed By: #### L [id number] ####[facility] (BEAKER)[address] [place] [address] Eosinophils (Bld) [#/Vol] 0.00 10*3/uL Normal 0.00-0.50 [facility] Comment on above: Performed By: #### L [id number] ####[facility] ([facility])[address] [place] [address] Eosinophils/100 WBC (Bld) 0.0 % Normal 0.0-6.0 [facility] Comment on above: Performed By: #### L [id number] ####[facility] ([facility])[address] [place] [address] Erythrocyte distribution width (RBC) [Ratio] 18.8 % High 11.5-15.0 [facility] Comment on above: Performed By: #### L [id number] ####[facility] ([facility])[address] [place] [address] ERYTHROCYTE MEAN CORPUSCULAR HEMOGLOBIN CONCENTRATION (G/DL) BY AUTOMATED 32.5 g/dL Normal 32.0-35.0 [facility] Comment on above: Performed By: #### L [id number] ####[facility] (BEAKER)[address] [place] [address] Hematocrit (Bld) [Volume fraction] 24.9 % Low 39.0-55.0 [facility] Comment on above: Performed By: #### L [id number] ####[facility] (BEAKER)[address] [place] [address] Hemoglobin (Bld) [Mass/Vol] 8.1 g/dL Low 13.0-17.0 [facility] Comment on above: Performed By: #### L [id number] ####[facility] (BEAKER)[address] [place] [address] Immature granulocytes (Bld) [#/Vol] 0.02 10*3/uL Normal 0.00-0.20 [facility] Comment on above: Performed By: #### L [id number] ####[facility] (BEAKER)[address] [place] [address] Immature granulocytes/100 WBC (Bld) 0.4 % Normal 0.0-1.0 [facility] Comment on above: Performed By: #### L [id number] ####[facility] (BEAKER)[address] [place] [address] Lymphocytes (Bld) [#/Vol] 0.14 10*3/uL Low 1.20-4.00 [facility] Comment on above: Performed By: #### L [id number] ####[facility] ([facility])[address] [place] [address] Lymphocytes/100 WBC (Bld) 2.7 % Low 20.0-45.0 [facility] Comment on above: Performed By: #### L [id number] ####[facility] (BEAKER)[address] [place] [address] MCH (RBC) [Entitic mass] 27.3 pg Normal 27.0-33.0 [facility] Comment on above: Performed By: #### L [id number] ####[facility] ([facility])[address] [place] [address] MCV (RBC) [Entitic vol] 83.8 fL Normal 82.0-98.0 [facility] Comment on above: Performed By: #### L [id number] ####[facility] (BEAKER)[address] [place] [address] Monocytes (Bld) [#/Vol] 0.09 10*3/uL Low 0.10-1.00 [facility] Comment on above: Performed By: #### L [id number] ####[facility] (BEAKER)[address] [place] [address] Monocytes/100 WBC (Bld) 1.8 % Low 5.0-12.0 [facility] Comment on above: Performed By: #### L [id number] ####[facility] (BEAKER)[address] [place] [address] Neutrophils (Bld) [#/Vol] 4.87 10*3/uL Normal 1.60-7.60 [facility] Comment on above: Performed By: #### L [id number] ####[facility] ([facility])[address] [place] [address] Neutrophils/100 WBC (Bld) 95.1 % High 40.0-72.0 [facility] Comment on above: Performed By: #### L [id number] ####[facility] ([facility])[address] [place] [address] NRBC (PER 100 WBCS) BY AUTOMATED COUNT 0.0 % Normal 0 [facility] Comment on above: Performed By: #### L [id number] ####[facility] ([facility])[address] [place] [address] PLATELETS (10*3/UL) IN BLOOD AUTOMATED COUNT 105 10*3/uL Low 150-400 [facility] Comment on above: Performed By: #### L [id number] ####[facility] ([facility])[address] [place], [place] [address] RBC (Bld) [#/Vol] 2.97 10*6/uL Low 4.20-5.70 [facility] Comment on above: Performed By: #### L [id number] ####[facility] ([facility])[address] [place], [place] [address] WBC (Bld) [#/Vol] 5.12 10*3/uL Normal 4.00-10.60 [facility] Comment on above: Performed By: #### L [id number] ####[facility] ([facility])[address] [place] [address] MAGNESIUMon 09-19-2023 Magnesium [Mass/Vol] 1.7 mg/dL Low 1.9-2.[address] [facility] Comment on above: Performed By: #### L [id number] ####[facility] ([facility])[address] [place] [address] MRSA/MSSA DNA NASALon 2022 MRSA DNA Negative Normal Negative [facility] Comment on above: Order Comment: Testi [...] preclude nasal colonization. Performed By: #### L [id number] ####[facility] ([facility])[address] [place] [address] MSSA DNA Negative Normal Negative [facility] Comment on above: Order Comment: Testi [...] preclude nasal colonization. Performed By: #### L [id number] ####[facility] ([facility])[address] [place] [address] PHOSPHORUSon 09-19-2023 Magnesium [Mass/Vol] 3.1 mg/dL Normal 2.5-5.[address] [facility] Comment on above: Performed By: #### L [id number] ####[facility] ([facility])[address] [place] [address] POCT GLUCOSE METER UNSOLICIT ED RESULTSon 09-19-2023 Glucose [Mass/Vol] 244 mg/dL High 70-105 [facility] Comment on above: Order Comment: Waive d Testing in the ED is performed under the ED CLIA certificate #[id number]. Result Comment: [email or web address] Performed By: #### L [id number] ####[facility] ([facility])[address] [place] [address] Glucose [Mass/Vol] 140 mg/dL High 70-105 [facility] Comment on above: Order Comment: Waive d Testing in the ED is performed under the ED CLIA certificate #[id number]. Result Comment: [email or web address] Performed By: #### L [id number] ####[facility] ([facility])[address] [place] [address] Glucose [Mass/Vol] 192 mg/dL High 70-105 [facility] Comment on above: Order Comment: Waive d Testing in the ED is performed under the ED CLIA certificate #[id number]. Result Comment: elac [email or web address] Performed By: #### L [id number] ####[facility] (BEAKER)[address] [facility] [place] [address] Glucose [Mass/Vol] 163 mg/dL High 70-105 [facility] Comment on above: Order Comment: Waive d Testing in the ED is performed under the ED CLIA certificate #[id number]. Result Comment: elac [email or web address] Performed By: #### L [id number] ####[facility] ([facility])[address] [place] [address] PROTIME-INRon 09-19-2023 INR IN PPP BY COAGULATION ASSAY 1.27 High 0.90-1.10 [facility] Comment on above: Result Comment: ACCC [...] CHEST 1995;108:231S-246S. Performed By: #### L [id number] ####[facility] ([facility])[address] [place] [address] PROTHROMBIN TIME (PT) IN PPP BY COAGULATION ASSAY 16.0 Seconds High 12.3-14.8 [facility] Comment on above: Performed By: #### L [id number] ####[facility] ([facility])[address] [place] [address] TYPE AND SCREENon 09-19-2023 AB SCREEN Negative Normal [facility] Comment on above: Performed By: #### L [id number] ####[facility]OD [facility], ABO group Nom (Bld) O Normal [facility] Comment on above: Performed By: #### L [id number] ####[facility] BLOOD BANK, RH TYPE IN BLOOD Positive Normal [facility] Comment on above: Performed By: #### L [id number] ####[facility] BLOOD BANK, BASIC METABOLIC PANELon 09-09 Anion gap [Moles/Vol] 8 mmol/L Normal 7-20 [facility] Comment on above: Performed By: #### L [id number] ####[facility] LAB (BEAKER)[address] [place] [address] Calcium [Mass/Vol] 8.4 mg/dL Low 8.6-10.3 [facility] Comment on above: Performed By: #### L [id number] ####[facility] (BEAKER)[address] [place] [address] Chloride [Moles/Vol] 99 mmol/L Normal 98-[address] [facility] Comment on above: Performed By: #### L [id number] ####[facility] (BEAKER)[address] [place] [address] CO2 [Moles/Vol] 28 mmol/L Normal 21-31 [facility] Comment on above: Performed By: #### L [id number] ####[facility] ([facility])[address] [place] [address] Creatinine [Mass/Vol] 0.52 mg/dL Low 0.70-1.30 [facility] Comment on above: Performed By: #### L [id number] ####[facility] ([facility])[address] [place] [address] GLOMERULAR FILTRATION RATE ML/MIN/1.73 SQ M.PREDICTED 104.5 mL/min/1.73m*2 Normal >60.0 [facility] Comment on above: Result Comment: [facility]???s estimated glomerular filtration rate (eGFR) will [...] of individuals. Performed By: #### L [id number] ####[facility] ([facility])[address] [place] [address] Glucose [Mass/Vol] 193 mg/dL High 70-100 [facility] Comment on above: Performed By: #### L [id number] ####[facility] ([facility])[address] [place] [address] Potassium [Moles/Vol] 3.7 mmol/L Normal 3.5-5.1 [facility] Comment on above: Performed By: #### L [id number] ####[facility] ([facility])[address] [place] [address] Sodium [Moles/Vol] 131 mmol/L Low 136-145 [facility] Comment on above: Performed By: #### L [id number] ####[facility] LAB (BEAKER)[address] [place] [address] Urea nitrogen [Mass/Vol] 19 mg/dL Normal 7-25 [facility] Comment on above: Performed By: #### L [id number] ####[facility] (BEAKER)[address] [address] UREA NITROGEN/CREATININE (MASS RATIO) IN SER/PLAS 36.5 Normal [facility] Comment on above: Performed By: #### L [id number] ####[facility] (BEAKER)[address] [address] CBC WITH AUTO DIFFERENTIALon 09-18-2023 Basophils (Bld) [#/Vol] 0.00 10*3/uL Normal 0.00-0.20 [facility] Comment on above: Performed By: #### L [id number] ####[facility] ([facility])[address] [address] Basophils/100 WBC (Bld) 0.0 % Normal 0.0-1.0 [facility] Comment on above: Performed By: #### L [id number] ####[facility] (BEAKER)[address] [address] Eosinophils (Bld) [#/Vol] 0.00 10*3/uL Normal 0.00-0.50 [facility] Comment on above: Performed By: #### L [id number] ####[facility] (BEAKER)[address] [address] Eosinophils/100 WBC (Bld) 0.0 % Normal 0.0-6.0 [facility] Comment on above: Performed By: #### L [id number] ####[facility] (BEAKER)[address] [place] [address] Erythrocyte distribution width (RBC) [Ratio] 19.1 % High 11.5-15.0 [facility] Comment on above: Performed By: #### L [id number] ####[facility] (BEAKER)[address] [address] ERYTHROCYTE MEAN CORPUSCULAR HEMOGLOBIN CONCENTRATION (G/DL) BY AUTOMATED 31.9 g/dL Low 32.0-35.0 [facility] Comment on above: Performed By: #### L [id number] ####[facility] ([facility])[address] [place] [address] Hematocrit (Bld) [Volume fraction] 25.4 % Low 39.0-55.0 [facility] Comment on above: Performed By: #### L [id number] ####[facility] ([facility])[address] [place] [address] Hemoglobin (Bld) [Mass/Vol] 8.1 g/dL Low 13.0-17.0 [facility] Comment on above: Performed By: #### L [id number] ####[facility] ([facility])[address] [place] [address] Immature granulocytes (Bld) [#/Vol] 0.03 10*3/uL Normal 0.00-0.20 [facility] Comment on above: Performed By: #### L [id number] ####[facility] (BEAKER)[address] [place] [address] Immature granulocytes/100 WBC (Bld) 0.3 % Normal 0.0-1.0 [facility] Comment on above: Performed By: #### L [id number] ####[facility] (BEAKER)[address] [place] [address] Lymphocytes (Bld) [#/Vol] 0.22 10*3/uL Low 1.20-4.00 [facility] Comment on above: Performed By: #### L [id number] ####[facility] (BEAKER)[address] [place] [address] Lymphocytes/100 WBC (Bld) 2.1 % Low 20.0-45.0 [facility] Comment on above: Performed By: #### L [id number] ####[facility] (BEAKER)[address] [place] [address] MCH (RBC) [Entitic mass] 26.8 pg Low 27.0-33.0 [facility] Comment on above: Performed By: #### L [id number] ####[facility] ([facility])[address] [place], [place] [address] MCV (RBC) [Entitic vol] 84.1 fL Normal 82.0-98.0 [facility] Comment on above: Performed By: #### L [id number] ####[facility] ([facility])[address] [place] [address] Monocytes (Bld) [#/Vol] 0.12 10*3/uL Normal 0.10-1.00 [facility] Comment on above: Performed By: #### L [id number] ####[facility] ([facility])[address] [place] [address] Monocytes/100 WBC (Bld) 1.2 % Low 5.0-12.0 [facility] Comment on above: Performed By: #### L [id number] ####[facility] ([facility])[address] [place] [address] Neutrophils (Bld) [#/Vol] 9.88 10*3/uL High 1.60-7.60 [facility] Comment on above: Performed By: #### L [id number] ####[facility] ([facility])[address] [place] [address] Neutrophils/100 WBC (Bld) 96.4 % High 40.0-72.0 [facility] Comment on above: Performed By: #### L [id number] ####[facility] ([facility])[address] [place] [address] NRBC (PER 100 WBCS) BY AUTOMATED COUNT 0.0 % Normal 0 [facility] Comment on above: Performed By: #### L [id number] ####[facility] (BEAKER)[address] [place] [address] PLATELETS (10*3/UL) IN BLOOD AUTOMATED COUNT 125 10*3/uL Low 150-400 [facility] Comment on above: Performed By: #### L [id number] ####[facility] (BEAKER)[address] [place] [address] RBC (Bld) [#/Vol] 3.02 10*6/uL Low 4.20-5.70 [facility] Comment on above: Performed By: #### L [id number] ####[facility] ([facility])[address] [place] [address] WBC (Bld) [#/Vol] 10.25 10*3/uL Normal 4.00-10.[address] [facility] Comment on above: Performed By: #### L [id number] ####[facility] ([facility])[address] [place] [address] CTA AORTA AND BILATERAL ILIO FEMORAL RUNOFF W AND/OR WO IV CONTRASTon 09-18-2023 CTA AORTA AND BILATERAL ILIOFEMORAL RUNOFF W AND/OR WO IV CONTRAST Normal [facility] CTA CHEST W AND/OR WO IV CON TRASTon 09-18-2023 CTA CHEST W AND/OR WO IV CONTRAST Normal [facility] EDNURSon 09-18-2023 EDNURS Normal [facility] EDPROVon 09-18-2023 EDPROV Invalid Interpretation Code [facility] HPon 09-18-2023 HP Normal [facility] LACTIC ACID WITH 4 HOUR REFL EXon 09-18-2023 LACTATE (MMOL/L) IN SER/PLAS 1.6 mmol/L Normal 0.5-2.2 [facility] Comment on above: Performed By: #### L [id number] ####[facility] (BEAKER)[address] [place] [address] MAGNESIUMon 09-18-2023 Magnesium [Mass/Vol] 1.6 mg/dL Low 1.9-2.[address] [facility] Comment on above: Performed By: #### L [id number] ####[facility] (BEAKER)[address] [place] [address] PHOSPHORUSon 09-18-2023 Magnesium [Mass/Vol] 3.1 mg/dL Normal 2.5-5.[address] [facility] Comment on above: Performed By: #### L [id number] ####[facility] (SUSAN)[address] [place] [address] POCT GLUCOSE METER UNSOLICIT ED RESULTSon 09-18-2023 Glucose [Mass/Vol] 228 mg/dL High 70-105 [facility] Comment on above: Order Comment: Waive d Testing in the ED is performed under the ED CLIA certificate #[id number]. Result Comment: [email or web address] Performed By: #### L [id number] ####[facility] ([place]AN)[address] [place] [address] Follow-Upon 08-31-2023 Follow-Up [facility] 36on 08-12-2023 36 Normal [facility] Telephoneon 08-12-2023 Telephone Normal [facility] Physician Referralon 023 Physician Referral [id number]#1.00TIF F [facility] Follow-Upon 06-20-2023 Follow-Up Normal [facility] Follow-Upon 05-16-2023 Follow-Up [facility] Consent for Treatmenton 04-11 Consent for Treatment [id number]#1.00CD: 127 Normal [facility] Heart and Vascular Office/Cl inic Noteon 05-09-2023 Heart and Vascular Office/Clinic Note Normal [facility] Comment on above: Result Comment: Elec tronically Signed By: Vickey WISE, Erwin FOtilia\.br\Date and Time Signed: 05/09/23 09:55 EDT Reminderson 05-05-2023 Reminders Normal [facility] Consent for Anesthesiaon Consent for Anesthesia [id number]#1.00C D:127 Normal [facility] IntraOperative Documentson 0 04-19-2023 IntraOperative Documents [id number]#1.00CD: 127 Normal [facility] IntraOperative Documentson 0 04-15-2023 IntraOperative Documents [id number]#1.00CD :127 Normal [facility] Operative Reporton Operative Report Normal [facility] Comment on above: Result Comment: Elec tronically Signed By: Vickey WISE, Erwin Evans\.br\Date and Time Signed: 04/14/23 12:35 EDT Progress Note-Physicianon Progress Note-Physician [facility] Comment on above: Result Comment: Elec tronically Signed By: MD Horner Ahmad F\.br\Date and Time Signed: 04/14/23 19:33 EDT Progress Note-Physician Normal [facility] Comment on above: Result Comment: Elec tronically Signed By: MD Horner Ahmad F\.br\Date and Time Signed: 04/14/23 19:28 EDT Consent for Anesthesiaon Consent for Anesthesia [id number]#1.00C D:127 Normal [facility] Discharge Instructionson Discharge Instructions [id number]#1.00C D:127 Normal [facility] Main OR Intraoperative Recor don 04-13-2023 Main OR Intraoperative Record Normal [facility] Capillary Glucose POCon Glucose [Mass/Vol] 97 mg/dL Normal 55-99 [facility] Comment on above: Result Comment: Sayra BalderramaNo Coverage Given Performed By: #### 2 [id number] ####[facility] [address] [place] [address] Consent for Procedure/Surger yon 04-11-2023 Consent for Procedure/Surgery [id number]#1.00CD :127 Normal [facility] Consent for Treatmenton Consent for Treatment [id number]#1.00CD: 127 Normal [facility] Discharge Instructionson Discharge Instructions Normal [facility] Comment on above: Result Comment: Elec tronically Signed By: Rakesh GUARDADO, Karissa Mckeon\.fabio\Date and Time Signed: 04/11/23 15:05 EDT H&P Updateon 04-11-2023 H&P Update [id number]#1.00CD :127 Normal [facility] Main OR PACU I Recordon Main OR PACU I Record Normal [facility] Main OR Preoperative Recordo n 04-11-2023 Main OR Preoperative Record Normal [facility] Monitor Recordon 04-11-2023 Monitor Record [id number]#1.00CD :127 Normal [facility] PT & PTTon 04-11-2023 aPTT Coag (PPP) [Time] 38.1 second(s) High 25.1-36.5 [facility] Comment on above: Result Comment: Para meter [...] the same coagulation reagent and instrumentation as [facility]. Currently there are no coagulation studies available worldwide for children to 14 days, and no normal ranges. Heparin therapeutic range (represented by Anti-Factor Xa activity of 0.2 - 0.4 U/mL) corresponds to PTT of 56.6 - 109.0 sec. Performed By: #### 1 [id number] ####[facility] [address] [place] [address] INR Coag (PPP) [Relative time] 1.2 {INR} Invalid Interpretation Code [facility] Comment on above: Result Comment: INR results are specifically intended to assess patients stabilized on long-term Anticoagulation therapy suggested INR?s ?Less Intensive Anticoagulation? 2.0 ? 3.0Conventional Range 3.0 ? 4.5 Performed By: #### 1 [id number] ####[facility] [address] [place] [address] PT Coag (PPP) [Time] 13.3 second(s) High 9.4-12.5 [facility] Comment on above: Result Comment: 15 d [...] the same coagulation reagent and instrumentation as [facility]. Currently there are no coagulation studies available worldwide for children to 14 days, and no normal ranges. Performed By: #### 1 [id number] ####[facility] [address] [place] [address] Patient Education - Texton 0 04-11-2023 Patient Education - Text Normal [facility] BMPon 04-08-2023 Creatinine [Mass/Vol] 0.6 mg/dL Normal 0.5-1.3 [facility] Comment on above: Performed By: #### 1 [id number], 1463239, 0353009, 9953212, 1384330, 91280471 ####[facility] [address] [place] [address] Urea nitrogen [Mass/Vol] 27 mg/dL High 5-21 [facility] Comment on above: Performed By: #### 1 2786866, 7966223, 5136792, 9922216, 3976352, 93003604 ####[facility] [address] [place] [address] Urea nitrogen/Creatinine [Mass ratio] 45 No Units High 10-20 [facility] Comment on above: Performed By: #### 1 8242441, 2419671, 3163625, 4319592, 6010088, 38392899 ####[facility] [address] [place] [address] Anion gap [Moles/Vol] 9 mmol/L Normal 6-16 [facility] Comment on above: Performed By: #### 1 5678556, 1168625, 9622189, 4379516, 2830300, 97650085 ####[facility] [address] [place] [address] Calcium [Mass/Vol] 8.5 mg/dL Low 8.9-11.1 [facility] Comment on above: Performed By: #### 1 5128425, 4598999, 8453120, 4171190, 5003213, 66708686 ####[facility] [address] [place] [address] Chloride [Moles/Vol] 99 mmol/L Low 101-111 [facility] Comment on above: Performed By: #### 1 7090257, 5074006, 7362179, 3605574, 9295378, 23679945 ####[facility] [address] [place] [address] CO2 [Moles/Vol] 28 mmol/L Normal 21-31 [facility] Comment on above: Performed By: #### 1 0000541, 5419914, 6909755, 8211755, 9303441, 91388790 ####[facility] [address] [place] [address] Glucose [Mass/Vol] 163 mg/dL Normal 55-199 [facility] Comment on above: Result Comment: If t his glucose result represents a fasting glucose, interpretation should refer to the following reference range: 55-99 mg/dL Performed By: #### 1 0177501, 6410097, 2858919, 0286580, 9107603, 91684104 ####[facility] [address] [place] [address] Potassium [Moles/Vol] 3.7 mmol/L Normal 3.5-5.3 [facility] Comment on above: Performed By: #### 1 1432219, 1218178, 6643759, 8488243, 2711135, 52081190 ####[facility] [address] [place] [address] Sodium [Moles/Vol] 132 mmol/L Low 135-145 [facility] Comment on above: Performed By: #### 1 6598765, 7889027, 4865693, 2108504, 0566841, 32896113 ####[address] [place] [address] CBC w/Indiceson 04-08-2023 Erythrocyte distribution width (RBC) [Ratio] 20.5 % High 10.9-14.2 [facility] Comment on above: Performed By: #### 1 5289694, 2070026, 3292364, 5913271, 8867222, 29893886 ####[address] [place] [address] Hematocrit (Bld) [Volume fraction] 31.4 % Low 37.7-49.0 [facility] Comment on above: Performed By: #### 1 1274188, 7857317, 6120089, 9103653, 5217657, 91087195 ####[address] [place] [address] Hemoglobin (Bld) [Mass/Vol] 10.2 g/dL Low 13.5-17.5 [facility] Comment on above: Performed By: #### 1 7121675, 6719144, 8287467, 3410146, 2989570, 90865741 ####[address] [place] [address] MCH (RBC) [Entitic mass] 30.3 pg Normal 27.0-34.0 [facility] Comment on above: Performed By: #### 1 6852123, 2399066, 1131971, 4253165, 8425427, 47127919 ####[address] [address] MCHC (RBC) [Mass/Vol] 32.6 g/dL Normal 31.4-36.0 [facility] Comment on above: Performed By: #### 1 1593566, 5582241, 9496428, 1366840, 9669135, 52701064 ####[place] [address] MCV (RBC) [Entitic vol] 92.9 fL Normal 80.0-100.0 F [facility] Comment on above: Performed By: #### 1 2060607, 9549826, 3549755, 1090060, 7316313, 21470546 ####[address] [address] Platelet mean volume (Bld) [Entitic vol] 9.2 fL Normal 6.4-10.8 [facility] Comment on above: Performed By: #### 1 3264304, 1986291, 8120443, 6298083, 2761703, 28940834 ####[address] [address] Platelets (Bld) [#/Vol] 156.0 E9/L Normal 150.0-500.0 [facility] Comment on above: Performed By: #### 1 0536750, 9751963, 0556210, 8415810, 4234047, 74640704 ####[address] [address] RBC (Bld) [#/Vol] 3.4 E12/L Low 4.3-5.9 [facility] Comment on above: Performed By: #### 1 8166620, 4385012, 0401405, 2478341, 7222273, 10183070 ####[facility] [address] [place] [address] WBC corrected for nucl RBC Auto (Bld) [#/Vol] 3.6 E9/L Low 4.0-11.0 [facility] Comment on above: Performed By: #### 1 9780009, 5355883, 4853483, 2555101, 8884557, 94006791 ####[facility] [address] [place] [address] CHEMISTRYOrdered By: SYSTEM SYSTEM on 04-08-2023 Anion [...] 40.6 s High 25.1 - 36.5 second(s) [facility] Auto Coag INR Coag (PPP) [Relative time] 1.7 {INR} Invalid Interpretation Code FT Auto Coag PT Coag (PPP) [Time] 19.0 s High 9.4 - 1 2.5 second(s) [facility] Auto Coag Consent for Treatmenton 03-12 Consent for Treatment [id number]#1.00CD: 127 Normal [facility] Formson 04-08-2023 Forms [id number]#1.00CD :127 Normal [facility] HEMATOLOGYOrdered By: Fabi Massey on 04-08-2023 Erythrocyte distribution width (RBC) [Ratio] 20.5 % High 10.9 - 14.2 % [facility] HemeAutoSS Hematocrit (Bld) [Volume fraction] 31.4 % [...] E9/L Normal 150. 0 - 500.0 E9/L FT HemeAutoSS RBC (Bld) [#/Vol] 3.4 E12/L Low 4.3 - 5.9 E12/L FT HemeAutoSS WBC corrected for nucl RBC Auto (Bld) [#/Vol] 3.6 E9/L Low 4.0 - 11.0 E9/L [facility] HemeAutoSS Magnesiumon 04-08-2023 Magnesium [Mass/Vol] 1.9 mg/dL Normal 1.3-2.4 Indra [facility] Comment on above: Performed By: #### 1 7127110, 2755750, 5491591, 7498139, 2213873, 09765892 ####[facility] [address] [place] [address] PT & PTTon 04-08-2023 aPTT Coag (PPP) [Time] 40.6 second(s) High 25.1-36.5 [facility] Comment on above: Result Comment: Para meter [...] the same coagulation reagent and instrumentation as [facility]. Currently there are no coagulation studies available worldwide for children to 14 days, and no normal ranges. Heparin therapeutic range (represented by Anti-Factor Xa activity of 0.2 - 0.4 U/mL) corresponds to PTT of 56.6 - 109.0 sec. Performed By: #### 1 0602672, 1423097, 9822976, 4494152, 1006899, 02534704 ####[facility] [address] [place] [address] INR Coag (PPP) [Relative time] 1.7 {INR} Invalid Interpretation Code [facility] Comment on above: Result Comment: INR results are specifically intended to assess patients stabilized on long-term Anticoagulation therapy suggested INR?s ?Less Intensive Anticoagulation? 2.0 ? 3.0Conventional Range 3.0 ? 4.5 Performed By: #### 1 6412042, 3276824, 8015787, 2956115, 8886754, 09696052 ####[facility] [address] [place] [address] PT Coag (PPP) [Time] 19.0 second(s) High 9.4-12.5 [facility] Comment on above: Result Comment: 15 d [...] the same coagulation reagent and instrumentation as [facility]. Currently there are no coagulation studies available worldwide for children to 14 days, and no normal ranges. Performed By: #### 1 7434872, 1204361, 4246101, 0263149, 9987254, 93419859 ####[facility] [address] [place] [address] Phosphoruson 04-08-2023 Phosphate [Mass/Vol] 2.7 mg/dL Normal 1.9-4.6 [facility] Comment on above: Performed By: #### 1 6942670, 0141044, 3419534, 7486590, 8593811, 93753962 ####[facility] [address] [place] [address] Physician Orderon 04-08-2023 Physician Order [id number]#1.00CD :127 Normal [facility] eGFRon 04-08-2023 GFR/1.73 sq M.predicted among non-blacks MDRD (S/P/Bld) [Vol rate/Area] 100 mL/min/1.73 m2 Normal >=59 [facility] Comment on above: Order Comment: Order added by Discern Expert. Result Comment: Basket Maker alen kidney disease could be indicated at eGFR's of less than 60 mL/min/1.73m2. Kidney failure is indicated at less than 15 mL/min/1.73m2. Performed By: #### 1 1953278, 1993512, 9501333, 7131800, 2300082, 37469650 ####[facility] [address] [place] [address] Formson 04-07-2023 Forms [id number]#1.00CD: 127 Normal [facility] Orders Officeon 04-07-2023 Orders Office [id number]#1.00CD: 127 Normal [facility] Path. Reviewon 04-05-2023 Path Review Anemia with anisocytosis, microcytes and mild polychromasia. Clinical correlation and iron studies are recommended to determine etiology as clinically indicated. Invalid Interpretation Code [facility] Comment on above: Order Comment: Order Added by Discern Expert. Performed By: #### 1 8233462, 4841377, 10761906, 8617045, 5063897, 13851147 ####[facility] [address] [place] [address] Auto Diffon 04-04-2023 Basophils/100 WBC (Bld) 0.9 % Normal 0.0-2.0 F [facility] Comment on above: Order Comment: Order Added by Discern Expert. Performed By: #### 1 9735786, 5042466, 58155337, 6093984, 9803129, 35552563 ####[facility] [address] [place] [address] Basophils/Leukocytes Auto (Bld) [Pure # fraction] 0.0 E9/L Normal 0.0-0.2 [facility] Comment on above: Order Comment: Order Added by Discern Expert. Performed By: #### 1 6731225, 3261897, 23636539, 5361961, 2319871, 41566355 ####[facility] [address] [place] [address] Eosinophils/100 WBC (Bld) 1.6 % Normal 0.0-8.0 [facility] Comment on above: Order Comment: Order Added by Discern Expert. Performed By: #### 1 3544652, 8651510, 51965466, 2144669, 5457784, 37179327 ####[address] [address] Eosinophils/Leukocytes Auto (Bld) [Pure # fraction] 0.1 E9/L Normal 0.0-0.5 [facility] Comment on above: Order Comment: Order Added by Discern Expert. Performed By: #### 1 4187270, 7252329, 90223334, 2184329, 8748549, 17858748 ####[address] [address] Lymphocytes/100 WBC (Bld) 11.7 % Low 14.0-50.0 [facility] Comment on above: Order Comment: Order Added by Discern Expert. Performed By: #### 1 3513164, 7808315, 06338918, 1600369, 1471701, 31594626 ####[address] [address] Lymphocytes/Leukocytes Auto (Bld) [Pure # fraction] 0.4 E9/L Low 1.0-4.0 [facility] Comment on above: Order Comment: Order Added by Discern Expert. Performed By: #### 1 3467158, 0275963, 59641935, 3783417, 3576068, 70947934 ####[address] [address] Monocytes/100 WBC (Bld) 13.1 % Normal 4.0-14.0 [facility] Comment on above: Order Comment: Order Added by Discern Expert. Performed By: #### 1 6765859, 4722060, 86368543, 2581042, 3825373, 34694651 ####[address] [address] Monocytes/Leukocytes Auto (Bld) [Pure # fraction] 0.5 E9/L Normal 0.2-1.0 [facility] Comment on above: Order Comment: Order Added by Discern Expert. Performed By: #### 1 1116759, 6232672, 91271464, 9218387, 0994029, 78120145 ####[facility] [address] [place] [address] Neutrophils/100 WBC (Bld) 72.7 % Normal 36.0-75.0 [facility] Comment on above: Order Comment: Order Added by Discern Expert. Performed By: #### 1 2629701, 4957022, 78440077, 5723169, 8359781, 92516922 ####[facility] [address] [place] [address] Neutrophils/Leukocytes Auto (Bld) [Pure # fraction] 2.7 E9/L Normal 2.0-7.5 [facility] Comment on above: Order Comment: Order Added by Discern Expert. Performed By: #### 1 8932520, 9965324, 19502692, 4627884, 5836368, 62772372 ####[facility] [address] [place] [address] BMPon 04-04-2023 Anion gap [Moles/Vol] 10 mmol/L Normal 6-16 [facility] Comment on above: Performed By: #### 1 0411771, 7270116, 57843898, 4376157, 4942840, 65232334 ####[facility] [address] [place] [address] Calcium [Mass/Vol] 9.2 mg/dL Normal 8.9-11.1 [facility] Comment on above: Performed By: #### 1 8371697, 7185312, 91553148, 6958454, 4816291, 07514448 ####[facility] [address] [place] [address] Chloride [Moles/Vol] 102 mmol/L Normal 101-111 Fish [facility] Comment on above: Performed By: #### 1 4464923, 2565416, 11415552, 4673774, 4892924, 17582017 ####[facility] [address] [place] [address] CO2 [Moles/Vol] 28 mmol/L Normal 21-31 [facility] Comment on above: Performed By: #### 1 0950535, 8519165, 25756922, 0809960, 4615412, 12517923 ####[facility] [address] [place] [address] Creatinine [Mass/Vol] 0.5 mg/dL Normal 0.5-1.3 [facility] Comment on above: Performed By: #### 1 6515540, 9332758, 68569237, 9736931, 1920020, 73779541 ####[facility] [address] [place] [address] Glucose [Mass/Vol] 171 mg/dL Normal 55-199 [facility] Comment on above: Result Comment: If t his glucose result represents a fasting glucose, interpretation should refer to the following reference range: 55-99 mg/dL Performed By: #### 1 5375765, 6716060, 18993202, 8210654, 8040773, 80932034 ####[facility] [address] [place] [address] Potassium [Moles/Vol] 3.8 mmol/L Normal 3.5-5.3 [facility] Comment on above: Performed By: #### 1 7787792, 8934739, 63743584, 7211830, 7087039, 80688695 ####[facility] [address] [facility] [place] [facility] [place] [address] Sodium [Moles/Vol] 136 mmol/L Normal 135-145 [facility] Comment on above: Performed By: #### 1 3762418, 8335704, 35452130, 7331792, 2245895, 44746384 ####[facility] [address] [facility] [place] [place] [address] Urea nitrogen [Mass/Vol] 34 mg/dL High 5-21 [facility] Comment on above: Performed By: #### 1 4537444, 6643510, 50614051, 0325004, 8835953, 40380502 ####[facility] [address] [place] [address] Urea nitrogen/Creatinine [Mass ratio] 68 No Units High 10-20 [facility] Comment on above: Performed By: #### 1 2235500, 4040664, 29395333, 2846833, 5779695, 32947606 ####[facility] [address] [place] [address] CBC w/ Auto Diffon 3 Erythrocyte distribution width (RBC) [Ratio] 22.1 % High 10.9-14.2 [facility] Comment on above: Performed By: #### 1 8947771, 8369252, 42579928, 4291888, 0181816, 80916924 ####[address] [place] [address] Hematocrit (Bld) [Volume fraction] 31.2 % Low 37.7-49.0 [facility] Comment on above: Performed By: #### 1 0413905, 7633759, 07192010, 5020251, 1704183, 86821243 ####[address] [address] Hemoglobin (Bld) [Mass/Vol] 10.1 g/dL Low 13.5-17.5 [facility] Comment on above: Performed By: #### 1 4559779, 8056061, 90846932, 1839710, 5625158, 50128564 ####[facility] [address] [place] [address] MCH (RBC) [Entitic mass] 30.3 pg Normal 27.0-34.0 [facility] Comment on above: Performed By: #### 1 5865643, 5026950, 76417085, 2781888, 3461560, 43095099 ####[address] [place] [address] MCHC (RBC) [Mass/Vol] 32.4 g/dL Normal 31.4-36.0 Fis [facility] Comment on above: Performed By: #### 1 2786494, 7805102, 08959336, 3538981, 5898433, 19363943 ####[address] [place] [address] MCV (RBC) [Entitic vol] 93.6 fL Normal 80.0-100.0 F [facility] Comment on above: Performed By: #### 1 3541680, 4463506, 46830750, 8500987, 3814018, 86846655 ####[address] [place] [address] Platelet mean volume (Bld) [Entitic vol] 8.5 fL Normal 6.4-10.8 [facility] Comment on above: Performed By: #### 1 1860409, 3600719, 24169590, 5087785, 5727244, 69046419 ####[address] [address] Platelets (Bld) [#/Vol] 170.0 E9/L Normal 150.0-500.0 [facility] Comment on above: Performed By: #### 1 6457628, 0720019, 56651533, 1851707, 1163111, 81046427 ####[address] [address] RBC (Bld) [#/Vol] 3.3 E12/L Low 4.3-5.9 [facility] Comment on above: Performed By: #### 1 0524229, 3432220, 35772302, 2052506, 7474278, 21544890 ####[address] [place] [address] WBC corrected for nucl RBC Auto (Bld) [#/Vol] 3.7 E9/L Low 4.0-11.0 [facility] Comment on above: Performed By: #### 1 7707325, 1327779, 50394690, 1169561, 2550289, 89106986 ####[facility] [address] [place] [address] CHEMISTRYOrdered By: SYSTEM SYSTEM on 04-04-2023 Anion gap [Moles/Vol] 10 mmol/L Normal 6 - 16 mEq/L F C Remisol Calcium [Mass/Vol] 9.2 mg/dL Normal 8.9 - 11. 1 mg/dL [facility] Remisol Chloride [Moles/Vol] 102 mmol/L Normal 101 - 1 11 mmol/L [facility] Remisol CO2 [Moles/Vol] 28 mmol/L Normal 21 - 31 mmol/L [facility] Remisol Creatinine [Mass/Vol] 0.5 mg/dL Normal 0.5 - 1.3 mg/dL FT Remisol GFR/1.73 sq M.predicted among non-blacks MDRD (S/P/Bld) [Vol rate/Area] 106 mL/min/1.73 m2 Normal >=59mL/min/1 .73 m2 FT Chem S Glucose [Mass/Vol] 171 mg/dL Normal 55 - 199 mg/dL FT Remisol Potassium [Moles/Vol] 3.8 mmol/L Normal 3.5 - 5.3 mmol/L [facility] Remisol Sodium [Moles/Vol] 136 mmol/L Normal 135 - 145 mmol/L [facility] Remisol Urea nitrogen [Mass/Vol] 34 mg/dL High 5 - 21 mg/dL [facility] Remisol Urea nitrogen/Creatinine [Mass ratio] 68 mg/mg High 10 - 20 [facility] Remisol Consent for Treatmenton 03-11 Consent for Treatment [id number]#1.00CD: 127 Normal [facility] Consent for Treatment [id number]#1.00CD: 127 Normal [facility] HEMATOLOGYOrdered By: Damian Peterson on 04-04-2023 Anisocytosis [...] E9/L Normal 150. 0 - 500.0 E9/L FT HemeAutoSS Polychromasia LM [...] 04-04-2023 Heart and Vascular Office/Clinic Note Normal [facility] Comment on above: Result Comment: Elec tronically Signed By: Vickey WISE, Erwin FOtilia\.br\Date and Time Signed: 04/04/23 11:48 EDT Morphon 04-04-2023 Anisocytosis Ql (Bld) Present Normal [facility] Comment on above: Order Comment: Order Added by Discern Expert. Performed By: #### 1 9257477, 2034123, 28396070, 4389730, 5502566, 72924470 ####[facility] [address] [place] [address] Hypochromia Auto Ql (Bld) Present Normal [facility] Comment on above: Order Comment: Order Added by Discern Expert. Performed By: #### 1 4259245, 3816882, 99457504, 9034378, 1598731, 80032404 ####[facility] [address] [place] [address] Morphology Jah (Bld) [Interp] See Morphology Normal [facility] Comment on above: Order Comment: Order Added by Discern Expert. Performed By: #### 1 4618598, 3853106, 53722710, 8190907, 1696706, 87567354 ####[facility] [address] [place] [address] Polychromasia LM Ql (Bld) Present Normal [facility] Comment on above: Order Comment: Order Added by Discern Expert. Performed By: #### 1 4367965, 6260414, 00597941, 9779253, 2295865, 78861221 ####[facility] [address] [address] Rouleaux LM Ql (Bld) Present Normal Fish [facility] Comment on above: Order Comment: Order Added by Discern Expert. Performed By: #### 1 1443870, 7232707, 70833294, 7889715, 1152645, 43128285 ####[facility] [address] [place] [address] Schistocytes LM Ql (Bld) Present Normal [facility] Comment on above: Order Comment: Order Added by Discern Expert. Performed By: #### 1 4899025, 5499404, 29571467, 8508296, 3844005, 78970214 ####[facility] [address]Nthe [place] [address] Spherocytes LM Ql (Bld) Present Normal F [facility] Comment on above: Order Comment: Order Added by Discern Expert. Performed By: #### 1 5844643, 9593588, 87775388, 2584572, 7318659, 69774483 ####[facility] [address] [place] [address] Outside Progress Noteon 03-11 Outside Progress Note [id number]#1.00CD :127 Normal [facility] eGFRon 04-04-2023 GFR/1.73 sq M.predicted among non-blacks MDRD (S/P/Bld) [Vol rate/Area] 106 mL/min/1.73 m2 Normal >=59 [facility] Comment on above: Order Comment: Order added by Discern Expert. Result Comment: Basket Maker alen kidney disease could be indicated at eGFR's of less than 60 mL/min/1.73m2. Kidney failure is indicated at less than 15 mL/min/1.73m2. Performed By: #### 1 3240403, 2620526, 28491278, 0786290, 6419469, 59067966 ####[facility] [address] [place] [address] Coding Queryon 03-17-2023 Coding Query [facility] Consent for Treatmenton Consent for Treatment [id number]#1.00CD: 127 [facility] Heart and Vascular Office/Cl inic Noteon 03-17-2023 Heart and Vascular Office/Clinic Note Normal [facility] Comment on above: Result Comment: Elec tronically Signed By: Vickey WISE, Erwin Evans\.br\Date and Time Signed: 03/17/23 14:05 EDT Progress Note-Physicianon Progress Note-Physician [id number]#1.00CD:1 27 [facility] Coding Queryon 03-15-2023 Coding Query [facility] Progress Note-Physicianon Progress Note-Physician Normal [facility] Comment on above: Result Comment: Elec tronically Signed By: Katheryn WISE, Aiden\.br\Date and Time Signed: 03/15/23 20:46 EDT C Urineon 03-12-2023 Bacteria identified Cx Nom (U) [facility] Comment on above: Performed By: #### 1 9271873, 1764145 ####[facility] [address] [place] [address] IntraOperative Documentson 0 03-11-2023 IntraOperative Documents [id number]#1.00CD :127 Normal [facility] .Interpretation:on 3 HCV Ab IA Ql Comment Invalid Interpretation Code [facility] Comment on above: Result Comment: Not infected with HCV unless early or acute infection issuspected (which may be delayed in an immunocompromisedindividual), or other evidence exists to indicate HCV infection.Performed at: [facility] [address] [place], [place] [id number] PhD Azar Luevano Performed By: #### 2 [id number], 5575156353, 068533840, 1641369 ####[facility] [address] [place] [address] CHEMISTRYOrdered By: Lab ROP User on 03-10-2023 Glucose [Mass/Vol] 140 mg/dL High 55 - 99 mg/dL [facility] POC Subsection Comment on above: Result Comment: Nuno aranda RN/ POC Device SN [id number] Invalid Interpretation Code FT POC Subsection POC User ID [id number] Invalid Interpretation Code FT POC Subsection POC Username ADRIANJOSE LUIS Invalid Interpretation Code [facility] POC Subsection Glucose [Mass/Vol] 116 mg/dL High 55 - 99 mg/dL [facility] POC Subsection Comment on above: Result Comment: Nuno aranda RN/ POC Device SN [id number] Invalid Interpretation Code FT POC Subsection POC User ID [id number] Invalid Interpretation Code FT POC Subsection POC Username JOSE LUIS CAMPBELL Invalid Interpretation Code [facility] POC Subsection CHEMISTRYOrdered By: SYSTEM SYSTEM on 03-10-2023 Anion gap [Moles/Vol] 9 mmol/L Normal 6 - 16 mEq/L F C Remisol Chloride [Moles/Vol] 102 mmol/L Normal 101 - 1 11 mmol/L FT [facility] CO2 [Moles/Vol] 29 mmol/L Normal 21 - 31 mmol/L FT [facility] Magnesium [Mass/Vol] 1.8 mg/dL Normal 1.3 - 2 .4 mg/dL FT [facility] Potassium [Moles/Vol] 3.5 mmol/L Normal 3.5 - 5.3 mmol/L FT [facility] Sodium [Moles/Vol] 136 mmol/L Normal 135 - 145 mmol/L FT [facility] Capillary Glucose POCon Glucose [Mass/Vol] 140 mg/dL High 55-99 [facility] Comment on above: Result Comment: Nuno MARIN Performed By: #### 2 90536184 ####[facility] [address] [place] [address] Glucose [Mass/Vol] 116 mg/dL High 55-99 [facility] Comment on above: Result Comment: Nuno MARIN Performed By: #### 2 07086225 ####[facility] [address] [place] [address] Glucose [Mass/Vol] 83 mg/dL Normal 55-99 [facility] Comment on above: Result Comment: Nuno MARIN Performed By: #### 2 69712785 ####[facility] [address] [place] [address] Consent for Blood Transfusio non 03-10-2023 Consent for Blood Transfusion [id number]#1.00CD :127 Normal [facility] Discharge Instructionson Discharge Instructions [id number]#1.00CD :127 Normal [facility] Discharge Note-Nursingon Discharge Note-Nursing Normal [facility] HCV Antibody RFX to Quant PC Chai 03-10-2023 HCV IgG IA Ql Non-Reactive Invalid Interpretation Code Non Reactive [facility] Comment on above: Result Comment: Perf ormed at: [employer] [facility] [place], [place] [id number] PhD Azar Luevano Performed By: #### 2 [id number], 4237351757, 923210337, 7259314 ####[facility] [address] [place] [address] Hep Bs Agon 03-10-2023 HBV surface Ag IA Ql Negative Invalid Interpretation Code Negative [facility] Comment on above: Result Comment: Perf ormed at: [facility] [place], [place] [id number] PhD Azar Luevano Performed By: #### 2 [id number], 7940906893, 102471800, 4978107 ####[facility] [address] [place] [address] Inpatient Clinical Summaryon 03-10-2023 Inpatient Clinical Summary Normal [facility] Inpatient Patient Summaryon 03-10-2023 Inpatient Patient Summary Normal [facility] Interdisciplinary Note - Michelet e Manageron 03-10-2023 Interdisciplinary Note - Business Investor Normal [facility] Comment on above: Result Comment: Elec tronically Signed By: Sonia Morejon\.br\Date and Time Signed: 03/10/23 14:25 EDT Lyteson 03-10-2023 Anion gap [Moles/Vol] 9 mmol/L Normal 6-16 [facility] Comment on above: Order Comment: line packet sent up to floor...[facility] 03/10/2023 04:24:28 EDT Performed By: #### 2 468838, 1580006 ####[facility] [address] [place] [address] Chloride [Moles/Vol] 102 mmol/L Normal 101-111 [facility] Comment on above: Order Comment: line packet sent up to floor...[facility] 03/10/2023 04:24:28 EDT Performed By: #### 2 546571, 5868286 ####[facility] [address] [place] [address] CO2 [Moles/Vol] 29 mmol/L Normal 21-31 [facility] Comment on above: Order Comment: line packet sent up to floor...[facility] 03/10/2023 04:24:28 EDT Performed By: #### 2 546364, 3990817 ####[facility] [address]Nthe [place] [address] Potassium [Moles/Vol] 3.5 mmol/L Normal 3.5-5.3 [facility] Comment on above: Order Comment: line packet sent up to floor...[facility] 03/10/2023 04:24:28 EDT Performed By: #### 2 082220, 5648319 ####[facility] [address] [place] [address] Sodium [Moles/Vol] 136 mmol/L Normal 135-145 [facility] Comment on above: Order Comment: line packet sent up to floor...mmf 03/10/2023 04:24:28 EDT Performed By: #### 2 753099, 7486019 ####[address] [place] [address] Magnesiumon 03-10-2023 Magnesium [Mass/Vol] 1.8 mg/dL Normal 1.3-2.4 [facility] Comment on above: Performed By: #### 2 319767, 7729112 ####[address] [address] Progress Note-Nurseon 2022 Progress Note-Nurse Late Entry Pt's spouse took home all belongings except for the wound vac in preparation for discharge on 03/10 @ 1253. Normal [facility] Transfer Documentson 023 Transfer Documents [id number]#1.00CD :127 Normal [facility] UA With Cult Reflexon 2022 Bacteria LM Ql (Urine sed) TRACE Normal Trace [facility] Comment on above: Order Comment: Urina ry Catheter Insertion triggered Urinalysis With Culture Reflex order by discern. Performed By: #### 1 8850229, 5221286 ####[address] [address] Bilirubin Ql (U) Negative Normal Negative [facility] Comment on above: Order Comment: Urina ry Catheter Insertion triggered Urinalysis With Culture Reflex order by discern. Performed By: #### 1 1360970, 2552431 ####[address] [place] [address] Clarity (U) CLEAR Normal Clear [facility] Comment on above: Order Comment: Urina ry Catheter Insertion triggered Urinalysis With Culture Reflex order by discern. Performed By: #### 1 0710189, 3961209 ####[facility] [address] [place] [address] Color (U) YELLOW Normal Yellow [facility] Comment on above: Order Comment: Urina ry Catheter Insertion triggered Urinalysis With Culture Reflex order by discern. Performed By: #### 1 4715339, 8847028 ####[address] [address] Epithelial cells.squamous LM.HPF (Urine sed) [#/Area] 0-2 Normal 0-2 [facility] Comment on above: Order Comment: Urina ry Catheter Insertion triggered Urinalysis With Culture Reflex order by discern. Performed By: #### 1 4962899, 6051106 ####[place] [address] Glucose Test strip (U) [Mass/Vol] Negative Normal Negative [facility] Comment on above: Order Comment: Urina ry Catheter Insertion triggered Urinalysis With Culture Reflex order by discern. Performed By: #### 1 6334790, 3645981 ####[address] [address] Hemoglobin Ql (U) 1+ Abnormal Negative [facility] Comment on above: Order Comment: Urina ry Catheter Insertion triggered Urinalysis With Culture Reflex order by discern. Performed By: #### 1 0673667, 6979120 ####[address] [address] Ketones (U) [Mass/Vol] Negative Normal Negative [facility] Comment on above: Order Comment: Urina ry Catheter Insertion triggered Urinalysis With Culture Reflex order by discern. Performed By: #### 1 4304755, 0775739 ####[address] [address] [place].plasma/[place]. RBC (Bld) [Mass ratio] 4-20 Normal 0-3 [facility] Comment on above: Order Comment: Urina ry Catheter Insertion triggered Urinalysis With Culture Reflex order by discern. Performed By: #### 1 3663605, 2436680 ####[address] [address] Mucus Ql (Urine sed) TRACE Normal Fish [facility] Comment on above: Order Comment: Urina ry Catheter Insertion triggered Urinalysis With Culture Reflex order by discern. Performed By: #### 1 6148691, 7619179 ####[facility] [address] [place] [address] Nitrite Ql (U) Negative Normal Negative [facility] Comment on above: Order Comment: Urina ry Catheter Insertion triggered Urinalysis With Culture Reflex order by discern. Performed By: #### 1 8937888, 3119410 ####[address] [address] pH (U) 8.5 [pH] Invalid Interpretation Code 5.0-9.0 [facility] Comment on above: Order Comment: Urina ry Catheter Insertion triggered Urinalysis With Culture Reflex order by discern. Performed By: #### 1 2615467, 2253136 ####[address] [address] Protein (U) [Mass/Vol] TRACE Abnormal Negative Fi [facility] Comment on above: Order Comment: Urina ry Catheter Insertion triggered Urinalysis With Culture Reflex order by discern. Performed By: #### 1 1445022, 9943099 ####[place] [address] Specific gravity (U) [Rel density] 1.015 Invalid Interpretation Code 1.005-1.030 [facility] Comment on above: Order Comment: Urina ry Catheter Insertion triggered Urinalysis With Culture Reflex order by discern. Performed By: #### 1 7385060, 4096655 ####[address] [address] Type of Urine collection method Boles Normal [facility] Comment on above: Order Comment: Urina ry Catheter Insertion triggered Urinalysis With Culture Reflex order by discern. Performed By: #### 1 4242775, 8406914 ####[address] [address] Urobilinogen Qn (U) 0.2 {Mercedes'U}/dL Normal 0.0-1.0 [facility] Comment on above: Order Comment: Urina ry Catheter Insertion triggered Urinalysis With Culture Reflex order by discern. Performed By: #### 1 2602765, 4256716 ####[facility] [address] [place] [address] WBC Auto Ql (U) 1+ Abnormal Negative [facility] Comment on above: Order Comment: Urina ry Catheter Insertion triggered Urinalysis With Culture Reflex order by discern. Performed By: #### 1 8270366, 4607601 ####[facility] [address] [place] [address] WBC LM.HPF (Urine sed) [#/Area] 6-15 Abnormal 0-5 [facility] Comment on above: Order Comment: Urina ry Catheter Insertion triggered Urinalysis With Culture Reflex order by discern. Performed By: #### 1 6801564, 0157292 ####[facility] [address] [place] [address] URINALYSISOrdered By: Fabi Massey on 03-10-2023 Bacteria [...] PM) Normal Negative [facility] UA Auto SS [place].plasma/[place]. RBC (Bld) [Mass ratio] 4-20 /HPF Normal 0-3/HPF [facility] UA Auto SS Mucus Ql (Urine sed) Trace (03/10/23 12:33 PM) Normal [facility] UA Auto SS Nitrite Ql (U) Negative (03/10/23 12:33 PM) Normal Negative FT UA Auto SS pH (U) 8.5 *NA* (03/10/23 12:33 PM) Invalid Interpretation Code 5.0 - 9.0 FT UA Auto SS Protein (U) [Mass/Vol] Trace *ABN* (03/10/23 12:33 PM) Invalid Interpretation Code Negative [facility] UA Auto SS Specific gravity (U) [Rel density] 1.015 *NA* (03/10/23 12:33 PM) Invalid Interpretation Code 1.005 - 1.030 [facility] UA Auto SS UA Spec Desc Boles (03/10/23 12:33 PM) Normal [facility] UA Auto SS Urobilinogen Qn (U) 0.9516542 {Mercedes'U}/dL Normal 0.0 - 1.0 EU/dL [facility] UA Auto SS WBC Auto Ql (U) 1+ *ABN* (03/10/23 12:33 PM) Invalid Interpretation Code Negative [facility] UA Auto SS WBC LM.HPF (Urine sed) [#/Area] 6-15 /HPF Invalid Interpretation Code 0-5/HPF [facility] UA Auto SS CHEMISTRYOrdered By: Lab ROP User on 03-09-2023 Glucose [Mass/Vol] 83 mg/dL Normal 55 - 99 mg/dL [facility] POC Subsection Comment on above: Result Comment: Nuno MARIN POC Device SN [id number] Invalid Interpretation Code [facility] POC Subsection POC User ID [id number] Invalid Interpretation Code [facility] POC Subsection POC Username JEFFJOSE ANGELAnu JULIO CÉSAR Invalid Interpretation Code [facility] POC Subsection Capillary Glucose POCon 02-09 Glucose [Mass/Vol] 98 mg/dL Normal 55-99 [facility] Comment on above: Result Comment: Nuno MARIN Performed By: #### 2 [id number] ####[facility] [address] [place] [address] Glucose [Mass/Vol] 219 mg/dL High 55-99 [facility] Comment on above: Result Comment: Nuno MARIN Performed By: #### 2 [id number] ####[facility] [address] [facility] [place] [facility] [place] [address] Glucose [Mass/Vol] 130 mg/dL High 55-99 [facility] Comment on above: Result Comment: Nuno aranda RN/ Performed By: #### 2 [id number] ####[facility] [address] [facility] [place] [place] [address] Interdisciplinary Note - Michelet e Manageron 03-09-2023 Interdisciplinary Note - Business Investor Normal [facility] Comment on above: Result Comment: Elec tronically Signed By: Sonia Morejon\.br\Date and Time Signed: 03/09/23 12:18 EDT Progress Note-Physicianon Progress Note-Physician Normal F [facility] Comment on above: Result Comment: Elec tronically Signed By: Anabela DONIS\.br\Date and Time Signed: 03/09/23 16:26 EDT\.br\Electronically Co-Signed By: West Shukla MD\.br\Date and Time Co-Signed: 03/09/23 17:57 EDT UA With Cult Reflexon 2022 Type of Urine collection method Clean Catch Normal [facility] Comment on above: Order Comment: Urina ry Catheter Insertion triggered Urinalysis With Culture Reflex order by discern. Performed By: #### 1 [id number] ####[facility] [address] [place] [address] Bacteria LM Ql (Urine sed) TRACE Normal Trace [facility] Comment on above: Order Comment: Urina ry Catheter Insertion triggered Urinalysis With Culture Reflex order by discern. Performed By: #### 1 [id number] ####[facility] [address] [facility] [place] [place] [address] Bilirubin Ql (U) Negative Normal Negative [facility] Comment on above: Order Comment: Urina ry Catheter Insertion triggered Urinalysis With Culture Reflex order by discern. Performed By: #### 1 [id number] ####[facility] [address] [facility] [place] [facility] [place] [address] Clarity (U) CLEAR Normal Clear [facility] Comment on above: Order Comment: Urina ry Catheter Insertion triggered Urinalysis With Culture Reflex order by discern. Performed By: #### 1 [id number] ####[address] [address] Color (U) YELLOW Normal Yellow [facility] Comment on above: Order Comment: Urina ry Catheter Insertion triggered Urinalysis With Culture Reflex order by discern. Performed By: #### 1 [id number] ####[address] [address] Epithelial cells.squamous LM.HPF (Urine sed) [#/Area] 0-2 Normal 0-2 [facility] Comment on above: Order Comment: Urina ry Catheter Insertion triggered Urinalysis With Culture Reflex order by discern. Performed By: #### 1 [id number] ####[address] [address] Glucose Test strip (U) [Mass/Vol] Negative Normal Negative [facility] Comment on above: Order Comment: Urina ry Catheter Insertion triggered Urinalysis With Culture Reflex order by discern. Performed By: #### 1 [id number] ####[address] [address] Hemoglobin Ql (U) 1+ Abnormal Negative [facility] Comment on above: Order Comment: Urina ry Catheter Insertion triggered Urinalysis With Culture Reflex order by discern. Performed By: #### 1 [id number] ####[address] [address] Ketones (U) [Mass/Vol] Negative Normal Negative [facility] Comment on above: Order Comment: Urina ry Catheter Insertion triggered Urinalysis With Culture Reflex order by discern. Performed By: #### 1 [id number] ####[address] [address] [place].plasma/[place]. RBC (Bld) [Mass ratio] 0-3 Normal 0-3 [facility] Comment on above: Order Comment: Urina ry Catheter Insertion triggered Urinalysis With Culture Reflex order by discern. Performed By: #### 1 [id number] ####[address] [address] Nitrite Ql (U) Negative Normal Negative [facility] Comment on above: Order Comment: Urina ry Catheter Insertion triggered Urinalysis With Culture Reflex order by discern. Performed By: #### 1 [id number] ####[address] [address] pH (U) 7.5 [pH] Invalid Interpretation Code 5.0-9.0 [facility] Comment on above: Order Comment: Urina ry Catheter Insertion triggered Urinalysis With Culture Reflex order by discern. Performed By: #### 1 [id number] ####[address] [address] Protein (U) [Mass/Vol] Negative Normal Negative [facility] Comment on above: Order Comment: Urina ry Catheter Insertion triggered Urinalysis With Culture Reflex order by discern. Performed By: #### 1 4961069 ####[address] [address] Specific gravity (U) [Rel density] 1.010 Invalid Interpretation Code 1.005-1.030 [facility] Comment on above: Order Comment: Urina ry Catheter Insertion triggered Urinalysis With Culture Reflex order by discern. Performed By: #### 1 [id number] ####[address] [address] Urobilinogen Qn (U) 0.2 {Mercedes'U}/dL Normal 0.0-1.0 [facility] Comment on above: Order Comment: Urina ry Catheter Insertion triggered Urinalysis With Culture Reflex order by discern. Performed By: #### 1 [id number] ####[address] [address] WBC Auto Ql (U) Negative Normal Negative [facility] Comment on above: Order Comment: Urina ry Catheter Insertion triggered Urinalysis With Culture Reflex order by discern. Performed By: #### 1 [id number] ####[address] [address] WBC LM.HPF (Urine sed) [#/Area] 0-5 Normal 0-5 [facility] Comment on above: Order Comment: Urina ry Catheter Insertion triggered Urinalysis With Culture Reflex order by discern. Performed By: #### 1 [id number] ####[facility] [address] [place] [address] URINALYSISOrdered By: Tommy Gerardo on 03-09-2023 Bacteria [...] PM) Normal Negative [facility] UA Auto SS [place].plasma/[place]. RBC (Bld) [Mass ratio] 0-3 /HPF Normal [...] Desc Clean Catch (03/09/23 6:50 PM) Normal [facility] UA Auto SS Urobilinogen Qn (U) 0.8620350 {Mercedes'U}/dL Normal 0.0 - 1.0 EU/dL [facility] UA Auto SS WBC Auto Ql (U) Negative (03/09/23 6:50 PM) Normal Negative [facility] UA Auto SS WBC LM.HPF (Urine sed) [#/Area] 0-5 /HPF Normal 0-5/HPF [facility] UA Auto SS CHEMISTRYOrdered By: SYSTEM SYSTEM on 03-08-2023 Anion gap [Moles/Vol] 10 mmol/L Normal 6 - 16 mEq/L [facility] Remisol Chloride [Moles/Vol] 103 mmol/L Normal 101 - 1 11 mmol/L [facility] Remisol CO2 [Moles/Vol] 27 mmol/L Normal 21 - 31 mmol/L [facility] Remisol Potassium [Moles/Vol] 3.6 mmol/L Normal 3.5 - 5.3 mmol/L [facility] Remisol Sodium [Moles/Vol] 136 mmol/L Normal 135 - 145 mmol/L [facility] Remisol Capillary Glucose POCon 02-09 Glucose [Mass/Vol] 154 mg/dL High 55-[address] [place] [address] Comment on above: Result Comment: Nuno MARIN Performed By: #### 2 [id number] ####[facility] [address] [place] [address] Glucose [Mass/Vol] 108 mg/dL High 55-[address] [place] [address] Comment on above: Result Comment: Nuno MARIN Performed By: #### 2 [id number] ####[facility] [address] [place] [address] Glucose [Mass/Vol] 153 mg/dL High -[address] [place] [address] Comment on above: Result Comment: Nuno MARIN Performed By: #### 2 [id number] ####[facility] [address] [place] [address] Glucose [Mass/Vol] 144 mg/dL High 55-[address] [place] [address] Comment on above: Result Comment: Nuno MARIN Performed By: #### 2 [id number] ####[facility] [address] [place] [address] HIV-1/2 Ag/Ab Comboon 2022 HIV 1+2 Ab and HIV1 p24 Ag IA.rapid Nom (S/P/Bld) Negative Normal Negative [facility] Comment on above: Performed By: #### 2 [id number], [id number], [id number], [id number] ####[facility] [address] [place] [address] HIV 1+2 Ab+HIV1 p24 Ag IA Ql Non-Reactive Normal Non-Reactive [facility] Comment on above: Performed By: #### 2 [id number], [id number], [id number], 9762187 ####[facility] [address] [place] [address] HIV Combo Internal Control Line Reactive Normal Reactive [facility] Comment on above: Performed By: #### 2 [id number], [id number], [id number], [id number] ####[facility] [address] [place] [address] HIV-1/2 Ag/Ab Combo Negative for HIV-1 and/or HIV-2 antibodies and HIV-1 p24 antigen. Normal Negative [facility] Interdisciplinary Note - Michelet e Manageron 03-08-2023 Interdisciplinary Note - Business Investor Normal [facility] Comment on above: Result Comment: Elec tronically Signed By: Yane Escobar\Date and Time Signed: 03/08/23 12:57 EDT Interdisciplinary Note - Alf singon 03-08-2023 Interdisciplinary Note - Nursing Normal [facility] Lyteson 03-08-2023 Anion gap [Moles/Vol] 10 mmol/L Normal 6-16 [facility] Comment on above: Order Comment: yolanda t given to jesi hughes002 03/08/2023 09:35:59 EDT Performed By: #### 2 [id number] ####[facility] [address] [place] [address] Chloride [Moles/Vol] 103 mmol/L Normal 101-111 [facility] Comment on above: Order Comment: yolanda t given to jesi [email or web address] 03/08/2023 09:35:59 EDT Performed By: #### 2 [id number] ####[facility] [address] [place] [address] CO2 [Moles/Vol] 27 mmol/L Normal 21-31 [facility] Comment on above: Order Comment: packe t given to jesi Leida leev002 03/08/2023 09:35:59 EDT Performed By: #### 2 963186 ####[facility] [address] [place] [address] Potassium [Moles/Vol] 3.6 mmol/L Normal 3.5-5.3 [facility] Comment on above: Order Comment: packe t given to jesi Leida leev002 03/08/2023 09:35:59 EDT Performed By: #### 2 786305 ####[facility] [address] [place] [address] Sodium [Moles/Vol] 136 mmol/L Normal 135-145 [facility] Comment on above: Order Comment: packe t given to jesi Leida leev002 03/08/2023 09:35:59 EDT Performed By: #### 2 [id number] ####[facility] [address] [place] [address] Physician Orderon 03-08-2023 Physician Order [id number]: 127 Normal [facility] Progress Note-Physicianon Progress Note-Physician Normal [facility] Comment on above: Result Comment: Elec tronically Signed By: Anabela DONIS\.br\Date and Time Signed: 03/08/23 15:57 EDT\.br\Electronically Co-Signed By: West Shukla MD\.br\Date and Time Co-Signed: 03/08/23 16:14 EDT Progress Note-Physician Normal [facility] Comment on above: Result Comment: Elec tronically Signed By: Chong Coe M.D\.br\Date and Time Signed: 03/08/23 12:34 EDT Progress Note-Physician Normal F [facility] Comment on above: Result Comment: Elec tronically Signed By: Lynda Carrero RN\.br\Date and Time Signed: 03/08/23 09:30 EDT\.br\Electronically Co-Signed By: Benji Russell DO\.br\Date and Time Co-Signed: 03/08/23 10:10 EDT Progress Note-Physician Normal F [facility] Comment on above: Result Comment: Elec tronically Signed By: MD Horner Ahmad F\.br\Date and Time Signed: 03/08/23 08:47 EDT Progress Note-Physician Normal F [facility] Comment on above: Result Comment: Elec tronically Signed By: MD Horner Ahmad F\.br\Date and Time Signed: 03/08/23 08:46 EDT Auto Diffon 03-07-2023 Basophils/100 WBC (Bld) 0.3 % Normal 0.0-2.0 [facility] Comment on above: Order Comment: Order Added by Discern Expert. Performed By: #### 2 570423, 3838844, 4395275, 08671412 ####[facility] [address] [place] [address] Basophils/Leukocytes Auto (Bld) [Pure # fraction] 0.0 E9/L Normal 0.0-0.2 [facility] Comment on above: Order Comment: Order Added by Discern Expert. Performed By: #### 2 189418, 0431908, 7237611, 59850179 ####[facility] [address] [place] [address] Eosinophils/100 WBC (Bld) 1.1 % Normal 0.0-8.0 [facility] Comment on above: Order Comment: Order Added by Discern Expert. Performed By: #### 2 876924, 7429753, 7023852, 92819736 ####[facility] [address] [place] [address] Eosinophils/Leukocytes Auto (Bld) [Pure # fraction] 0.1 E9/L Normal 0.0-0.5 [facility] Comment on above: Order Comment: Order Added by Discern Expert. Performed By: #### 2 771947, 6352227, 6056921, 55151793 ####[address] [address] Lymphocytes/100 WBC (Bld) 5.5 % Low 14.0-50.0 [facility] Comment on above: Order Comment: Order Added by Discern Expert. Performed By: #### 2 709057, 0880522, 3199717, 77609730 ####[address] [address] Lymphocytes/Leukocytes Auto (Bld) [Pure # fraction] 0.3 E9/L Low 1.0-4.0 [facility] Comment on above: Order Comment: Order Added by Cristiano Expert. Performed By: #### 2 743190, 3310326, 1429316, 71705471 ####[address] [address] Monocytes/100 WBC (Bld) 10.4 % Normal 4.0-14.0 [facility] Comment on above: Order Comment: Order Added by Cristiano Expert. Performed By: #### 2 827532, 3184904, 0938111, 25332073 ####[address] [address] Monocytes/Leukocytes Auto (Bld) [Pure # fraction] 0.5 E9/L Normal 0.2-1.0 [facility] Comment on above: Order Comment: Order Added by Cristiano Expert. Performed By: #### 2 866958, 4830778, 1047867, 67911925 ####[address] [address] Neutrophils/100 WBC (Bld) 82.7 % High 36.0-75.0 [facility] Comment on above: Order Comment: Order Added by Cristiano Expert. Performed By: #### 2 483232, 9115655, 1113614, 80896670 ####[address] [place] [address] Neutrophils/Leukocytes Auto (Bld) [Pure # fraction] 4.1 E9/L Normal 2.0-7.5 [facility] Comment on above: Order Comment: Order Added by Discern Expert. Performed By: #### 2 431099, 9316934, 4818444, 10662993 ####[facility] [address] [place] [address] BMPon 03-07-2023 Anion gap [Moles/Vol] 8 mmol/L Normal 6-16 [facility] Comment on above: Performed By: #### 2 330907, 6200300, 0437908, 22209879 ####[facility] [address] [place] [address] Calcium [Mass/Vol] 8.8 mg/dL Low 8.9-11.1 [facility] Comment on above: Performed By: #### 2 400839, 7315013, 1385594, 31168617 ####[facility] [address] [place] [address] Chloride [Moles/Vol] 107 mmol/L Normal 101-111 [facility] Comment on above: Performed By: #### 2 490107, 4516533, 0971721, 25320753 ####[facility] [address] [place] [address] CO2 [Moles/Vol] 28 mmol/L Normal 21-31 [facility] Comment on above: Performed By: #### 2 326330, 5500864, 8184380, 00307559 ####[facility] [address] [place] [address] Creatinine [Mass/Vol] 0.6 mg/dL Normal 0.5-1.3 [facility] Comment on above: Performed By: #### 2 730175, 2212496, 2143398, 53858675 ####[facility] [address] [place] [address] Glucose [Mass/Vol] 136 mg/dL Normal 55-199 [facility] Comment on above: Result Comment: If t his glucose result represents a fasting glucose, interpretation should refer to the following reference range: 55-99 mg/dL Performed By: #### 2 260311, 7097981, 1660633, 38522200 ####[facility] [address] [place] [address] Potassium [Moles/Vol] 3.1 mmol/L Low 3.5-5.3 [facility] Comment on above: Performed By: #### 2 941837, 5053267, 5648842, 63719160 ####[facility] [address] [place] [address] Sodium [Moles/Vol] 140 mmol/L Normal 135-145 [facility] Comment on above: Performed By: #### 2 556562, 0329286, 3942595, 34169361 ####[facility] [address] [place] [address] Urea nitrogen [Mass/Vol] 19 mg/dL Normal 5-21 [facility] Comment on above: Performed By: #### 2 002871, 4664668, 9877865, 54358099 ####[facility] [address] [place] [address] Urea nitrogen/Creatinine [Mass ratio] 32 No Units High 10-20 [facility] Comment on above: Performed By: #### 2 052802, 6162809, 3062131, 88761542 ####[facility] [address] [place] [address] CBC w/ Auto Diffon 3 Erythrocyte distribution width (RBC) [Ratio] 19.2 % High 10.9-14.2 [facility] Comment on above: Performed By: #### 2 054431, 8115210, 8780248, 18166165 ####[facility] [address] [place] [address] Hematocrit (Bld) [Volume fraction] 27.3 % Low 37.7-49.0 [facility] Comment on above: Performed By: #### 2 790272, 1299665, 2429323, 88300412 ####[address] [place] [address] Hemoglobin (Bld) [Mass/Vol] 8.8 g/dL Low 13.5-17.5 [facility] Comment on above: Performed By: #### 2 627455, 0780522, 9720692, 84557507 ####[address] [address] MCH (RBC) [Entitic mass] 27.4 pg Normal 27.0-34.0 [facility] Comment on above: Performed By: #### 2 104254, 3442218, 8594906, 78266878 ####[address] [address] MCHC (RBC) [Mass/Vol] 32.2 g/dL Normal 31.4-36.0 [facility] Comment on above: Performed By: #### 2 029240, 5848275, 7121018, 76592934 ####[address] [address] MCV (RBC) [Entitic vol] 85.0 fL Normal 80.0-100.0 F [facility] Comment on above: Performed By: #### 2 461389, 3113024, 3694910, 27722398 ####[address] [address] Platelet mean volume (Bld) [Entitic vol] 8.4 fL Normal 6.4-10.8 [facility] Comment on above: Performed By: #### 2 366165, 2696282, 0281425, 58736350 ####[address] [address] Platelets (Bld) [#/Vol] 220.0 E9/L Normal 150.0-500.0 [facility] Comment on above: Performed By: #### 2 861073, 7102387, 3648515, 77934452 ####[address] [place] [address] RBC (Bld) [#/Vol] 3.2 E12/L Low 4.3-5.9 [facility] Comment on above: Performed By: #### 2 284684, 7145362, 3554730, 60461476 ####[facility] [address] [place] [address] WBC corrected for nucl RBC Auto (Bld) [#/Vol] 5.0 E9/L Normal 4.0-11.0 [facility] Comment on above: Performed By: #### 2 020537, 9223219, 5006307, 93055650 ####[facility] [address] [place] [address] CHEMISTRYOrdered By: SYSTEM SYSTEM on 03-07-2023 Anion gap [Moles/Vol] 8 mmol/L Normal 6 - 16 mEq/L F [facility] Remisol Calcium [Mass/Vol] 8.8 mg/dL Low 8.9 - 11. 1 mg/dL [facility] Remisol Chloride [Moles/Vol] 107 mmol/L Normal 101 - 1 11 mmol/L FT Remisol CO2 [Moles/Vol] 28 mmol/L Normal 21 - 31 mmol/L FT Remisol Creatinine [Mass/Vol] 0.6 mg/dL Normal 0.5 - 1.3 mg/dL [facility] Remisol GFR/1.73 sq M.predicted among non-blacks MDRD (S/P/Bld) [Vol rate/Area] 100 mL/min/1.73 m2 Normal >=59mL/min/1 .73 m2 [facility] Chem S Glucose [Mass/Vol] 136 mg/dL Normal 55 - 199 mg/dL FT Remisol Potassium [Moles/Vol] 3.1 mmol/L Low 3.5 - 5.3 mmol/L FT Remisol Sodium [Moles/Vol] 140 mmol/L Normal 135 - 145 mmol/L FT Remisol Urea nitrogen [Mass/Vol] 19 mg/dL Normal 5 - 21 mg/dL [facility] Remisol Urea nitrogen/Creatinine [Mass ratio] 32 mg/mg High 10 - 20 [facility] Remisol Capillary Glucose POCon 02-08 Glucose [Mass/Vol] 138 mg/dL High 55-99 [facility] Comment on above: Result Comment: Nuno MARIN Performed By: #### 2 [id number] ####[facility] [address] [place] [address] Glucose [Mass/Vol] 91 mg/dL Normal 55-99 [facility] Comment on above: Result Comment: Nuno MARIN Performed By: #### 2 05608616 ####[facility] [address] [place] [address] Glucose [Mass/Vol] 216 mg/dL High 55-99 [facility] Comment on above: Result Comment: Nuno MARIN Performed By: #### 2 60371883 ####[facility] [address] [place] [address] Glucose [Mass/Vol] 133 mg/dL High 55-99 [facility] Comment on above: Result Comment: Nuno MARIN Performed By: #### 2 [id number] ####[facility] [address] [place] [address] HEMATOLOGYOrdered By: SYSTEM SYSTEM on 03-07-2023 Basophils/100 [...] Michelet e Manageron 03-07-2023 Interdisciplinary Note - Business Investor Normal [facility] Comment on above: Result Comment: Elec tronically Signed By: Sonia Morejon\.br\Date and Time Signed: 03/07/23 12:44 EDT Operative Reporton Operative Report Normal [facility] Comment on above: Result Comment: Elec tronically Signed By: Vickey WISE, Erwin Evans\.br\Date and Time Signed: 03/07/23 20:21 EDT eGFRon 03-07-2023 GFR/1.73 sq M.predicted among non-blacks MDRD (S/P/Bld) [Vol rate/Area] 100 mL/min/1.73 m2 Normal >=59 [facility] Comment on above: Order Comment: Order added by Discern Expert. Result Comment: Basket Maker alen kidney disease could be indicated at eGFR's of less than 60 mL/min/1.73m2. Kidney failure is indicated at less than 15 mL/min/1.73m2. Performed By: #### 2 502038, 3922973, 0614148, 24090025 ####[facility] [address] [place] [address] Ammoniaon 03-06-2023 Ammonia (P) [Moles/Vol] 16 mcmol Normal 11-35 [facility] Comment on above: Performed By: #### 2 029869 ####[facility] [address] [place] [address] CHEMISTRYOrdered By: SYSTEM SYSTEM on 03-06-2023 Ammonia (P) [Moles/Vol] 16 umol Normal 11 - 35 mcmol [facility] Remisol Capillary Glucose POCon 02-08 Glucose [Mass/Vol] 129 mg/dL High 55-99 [facility] Comment on above: Result Comment: Nuno aranda RN/ Performed By: #### 2 [id number] ####[facility] [address] [place] [address] Glucose [Mass/Vol] 181 mg/dL High 55-99 [facility] Comment on above: Performed By: #### 2 [id number] ####[facility] [address] [place] [address] Glucose [Mass/Vol] 209 mg/dL High 55-99 [facility] Comment on above: Result Comment: Nuno aranda RN/ Performed By: #### 2 69719487 ####[facility] [address] [place] [address] Glucose [Mass/Vol] 136 mg/dL High 55-99 [facility] Comment on above: Result Comment: Nuno aranda RN/ Performed By: #### 2 [id number] ####[facility] [address] [place] [address] Interdisciplinary Note - Michelet e Manageron 03-06-2023 Interdisciplinary Note - Business Investor Normal [facility] Comment on above: Result Comment: Elec tronically Signed By: Leona Schwarz RN\.br\Date and Time Signed: 03/06/23 11:50 EDT Progress Note-Physicianon Progress Note-Physician Normal [facility] Comment on above: Result Comment: Elec tronically Signed By: Savage Petty MD\.br\Date and Time Signed: 03/06/23 12:09 EDT Progress Note-Physician Normal [facility] Comment on above: Result Comment: Elec tronically Signed By: Lynda Carrero RN\.br\Date and Time Signed: 03/06/23 10:26 EDT\.br\Electronically Co-Signed By: Benji Russell DO\.br\Date and Time Co-Signed: 03/06/23 10:39 EDT Progress Note-Physician Normal [facility] Comment on above: Result Comment: Elec tronically Signed By: Shayy BALLESTEROS MD\.br\Date and Time Signed: 03/06/23 09:20 EDT Auto DiffOrdered By: SYSTEM SYSTEM on 03-05-2023 Basophils/100 WBC (Bld) 0.4 % Normal 0.0-2.0 [facility] HemeAutoSS Comment on above: Order Comment: Order Added by Discern Expert. Performed By: #### 2 282343, 37055718, 8621855, 3470843 ####[facility] [address] [place] [address] Basophils/Leukocytes Auto (Bld) [Pure # fraction] 0.0 E9/L Normal 0.0-0.2 [facility] HemeAutoSS Comment on above: Order Comment: Order Added by Discern Expert. Performed By: #### 2 354278, 85513476, 5474871, 4379931 ####[address] [address] Eosinophils/100 WBC (Bld) 0.4 % Normal 0.0-8.0 [facility] HemeAutoSS Comment on above: Order Comment: Order Added by Discern Expert. Performed By: #### 2 921496, 53930975, 4073962, 1970268 ####[address] [address] Eosinophils/Leukocytes Auto (Bld) [Pure # fraction] 0.0 E9/L Normal 0.0-0.5 [facility] HemeAutoSS Comment on above: Order Comment: Order Added by Discern Expert. Performed By: #### 2 272086, 40435940, 6245116, 8320312 ####[address] [address] Lymphocytes/100 WBC (Bld) 5.2 % Low 14.0-50.0 [facility] HemeAutoSS Comment on above: Order Comment: Order Added by Discern Expert. Performed By: #### 2 723065, 98521329, 6169562, 5155868 ####[address] [address] Lymphocytes/Leukocytes Auto (Bld) [Pure # fraction] 0.3 E9/L Low 1.0-4.0 [facility] HemeAutoSS Comment on above: Order Comment: Order Added by Cristiano Expert. Performed By: #### 2 083863, 67515728, 5267915, 3941629 ####[address] [address] Monocytes/100 WBC (Bld) 9.2 % Normal 4.0-14.0 [facility] HemeAutoSS Comment on above: Order Comment: Order Added by Discern Expert. Performed By: #### 2 547294, 55766587, 7172974, 9724286 ####[address] [address] Monocytes/Leukocytes Auto (Bld) [Pure # fraction] 0.6 E9/L Normal 0.2-1.0 [facility] HemeAutoSS Comment on above: Order Comment: Order Added by Discern Expert. Performed By: #### 2 805906, 18417220, 9019848, 8055688 ####[address] [place] [address] Neutrophils/100 WBC (Bld) 84.8 % High 36.0-75.0 [facility] [facility] Comment on above: Order Comment: Order Added by Discern Expert. Performed By: #### 2 793186, 21724566, 8497584, 8939642 ####[address] [place] [address] Neutrophils/Leukocytes Auto (Bld) [Pure # fraction] 5.6 E9/L Normal 2.0-7.5 [facility] Comment on above: Order Comment: Order Added by Discern Expert. Performed By: #### 2 270490, 71714853, 7396073, 1833812 ####[address] [address] BMPon 03-05-2023 Anion gap [Moles/Vol] 9 mmol/L Normal 6-16 [facility] Comment on above: Performed By: #### 2 697059, 72553261, 4621411, 9957935 ####[address] [place] [address] Chloride [Moles/Vol] 101 mmol/L Normal 101-111 [facility] Comment on above: Performed By: #### 2 470721, 26273586, 8109626, 0535308 ####[facility] [address] [place] [address] CO2 [Moles/Vol] 26 mmol/L Normal 21-31 [facility] Comment on above: Performed By: #### 2 277203, 32661239, 8477750, 7148975 ####[facility] [address] [place] [address] Potassium [Moles/Vol] 3.6 mmol/L Normal 3.5-5.3 [facility] Comment on above: Performed By: #### 2 665893, 74076472, 2973972, 8619714 ####[facility] [address] [place] [address] Sodium [Moles/Vol] 132 mmol/L Low 135-145 [facility] Comment on above: Performed By: #### 2 790730, 18637199, 8826951, 7003551 ####[facility] [address] [place] [address] Urea nitrogen/Creatinine [Mass ratio] 26 No Units High 10-20 [facility] Comment on above: Performed By: #### 2 394225, 86191265, 3917571, 5180887 ####[facility] [address] [place] [address] BMPOrdered By: SYSTEM SYSTEM on 03-05-2023 Calcium [Mass/Vol] 8.0 mg/dL Low 8.9-11.1 [facility] Comment on above: Performed By: #### 2 921571, 64905471, 5034363, 3724853 ####[facility] [address] [place] [address] Creatinine [Mass/Vol] 0.5 mg/dL Normal 0.5-1.3 [facility] Comment on above: Performed By: #### 2 546499, 98112989, 1501500, 7360139 ####[facility] [address] [place] [address] Glucose [Mass/Vol] 125 mg/dL Normal 55-199 [facility] Comment on above: Result Comment: If t his glucose result represents a fasting glucose, interpretation should refer to the following reference range: 55-99 mg/dL Performed By: #### 2 846616, 21995544, 1819736, 9453119 ####[facility] [address] [place] [address] Urea nitrogen [Mass/Vol] 13 mg/dL Normal 5-21 [facility] Comment on above: Performed By: #### 2 610117, 09467157, 4085070, 1589845 ####[address] [address] CBC w/ Auto DiffOrdered By: Yane Fitch on 03-05-2023 Erythrocyte distribution width (RBC) [Ratio] 18.2 % High 10.9-14.2 [facility] Comment on above: Performed By: #### 2 930190, 72930723, 4332953, 9936700 ####[address] Hematocrit (Bld) [Volume fraction] 25.1 % Low 37.7-49.0 [facility] Comment on above: Performed By: #### 2 431973, 41248203, 5202294, 4820660 ####[address] Hemoglobin (Bld) [Mass/Vol] 8.2 g/dL Low 13.5-17.5 [facility] Comment on above: Performed By: #### 2 743960, 81074603, 7976392, 3249387 ####[address] [address] MCH (RBC) [Entitic mass] 27.4 pg Normal 27.0-34.0 [facility] Comment on above: Performed By: #### 2 009855, 16022915, 3650641, 0784663 ####[address] [address] MCHC (RBC) [Mass/Vol] 32.6 g/dL Normal 31.4-36.0 [facility] Comment on above: Performed By: #### 2 719671, 63795325, 1856581, 4644901 ####[address] [address] MCV (RBC) [Entitic vol] 84.1 fL Normal 80.0-100.0 [facility] Comment on above: Performed By: #### 2 267352, 07540523, 4665669, 0707423 ####[address] [address] Platelet mean volume (Bld) [Entitic vol] 8.4 fL Normal 6.4-10.8 [facility] Comment on above: Performed By: #### 2 046993, 88080606, 9565455, 8783535 ####[address] [address] Platelets (Bld) [#/Vol] 177.0 E9/L Normal 150.0-500.0 [facility] Comment on above: Performed By: #### 2 199385, 13357603, 5750498, 9999559 ####[address] RBC (Bld) [#/Vol] 3.0 E12/L Low 4.3-5.9 [facility] Comment on above: Performed By: #### 2 851318, 33313476, 1799143, 0022624 ####[address] [address] WBC corrected for nucl RBC Auto (Bld) [#/Vol] 6.5 E9/L Normal 4.0-11.0 [facility] Comment on above: Performed By: #### 2 526042, 03103291, 2666351, 3339594 ####[address] [address] CHEMISTRYOrdered By: SYSTEM SYSTEM on 03-05-2023 Urea nitrogen/Creatinine [Mass ratio] 26 mg/mg High 10 - 20 [facility] Remisol Capillary Glucose POCon 02-08 Glucose [Mass/Vol] 158 mg/dL High 55-99 [facility] Comment on above: Result Comment: Nuno MARIN Performed By: #### 2 13924969 ####[address] [address] Glucose [Mass/Vol] 130 mg/dL High 55-99 [facility] Comment on above: Result Comment: Nuno MARIN Performed By: #### 2 23268036 ####[address] [place] [address] Glucose [Mass/Vol] 166 mg/dL High 55-99 [facility] Comment on above: Result Comment: Nuno aranda RN/ Performed By: #### 2 32608180 ####[facility] [address] [place] [address] Glucose [Mass/Vol] 174 mg/dL High 55-99 [facility] Comment on above: Result Comment: Nuno aranda RN/ Performed By: #### 2 94926972 ####[facility] [address] [place] [address] Interdisciplinary Note - Michelet e Manageron 03-05-2023 Interdisciplinary Note - Business Investor Normal [facility] Comment on above: Result Comment: Elec tronically Signed By: Leona Schwarz RN\.br\Date and Time Signed: 03/05/23 11:48 EDT Progress Note-Physicianon Progress Note-Physician Normal F [facility] Comment on above: Result Comment: Elec tronically Signed By: Jovanny WISE, Savage Castillo\.br\Date and Time Signed: 03/05/23 12:19 EDT eGFROrdered By: SYSTEM Better FinanceE M on 03-05-2023 GFR/1.73 sq M.predicted among non-blacks MDRD (S/P/Bld) [Vol rate/Area] 106 mL/min/1.73 m2 Normal >=59 [facility] Chem S Comment on above: Order Comment: Order added by Discern Expert. Result Comment: Basket Maker alen kidney disease could be indicated at eGFR's of less than 60 mL/min/1.73m2. Kidney failure is indicated at less than 15 mL/min/1.73m2. Performed By: #### 2 708280, 96885165, 7372507, 4967048 ####[address] [place] [address] Auto DiffOrdered By: SYSTEM SYSTEM on 03-04-2023 Basophils/100 WBC (Bld) 1.3 % Normal 0.0-2.0 [facility] Comment on above: Order Comment: Order Added by Discern Expert. Performed By: #### 1 0765528, 6042624, 9407096, 0110504 ####[address] [address] Basophils/Leukocytes Auto (Bld) [Pure # fraction] 0.1 E9/L Normal 0.0-0.2 [facility] Comment on above: Order Comment: Order Added by Discern Expert. Performed By: #### 1 5525495, 5588421, 9577248, 0284851 ####[address] [address] Eosinophils/100 WBC (Bld) 0.0 % Normal 0.0-8.0 [facility] Comment on above: Order Comment: Order Added by Discern Expert. Performed By: #### 1 2950943, 0431632, 3112314, 9986886 ####[address] [address] Eosinophils/Leukocytes Auto (Bld) [Pure # fraction] 0.0 E9/L Normal 0.0-0.5 [facility] Comment on above: Order Comment: Order Added by Discern Expert. Performed By: #### 1 5248843, 0602991, 2555760, 5728480 ####[address] [address] Lymphocytes/100 WBC (Bld) 4.6 % Low 14.0-50.0 [facility] Comment on above: Order Comment: Order Added by Discern Expert. Performed By: #### 1 0979744, 5163188, 7778573, 1336059 ####[address] [address] Lymphocytes/Leukocytes Auto (Bld) [Pure # fraction] 0.4 E9/L Low 1.0-4.0 [facility] Comment on above: Order Comment: Order Added by Discern Expert. Performed By: #### 1 1687508, 1743692, 5590111, 2331659 ####[address] [address] Monocytes/100 WBC (Bld) 9.5 % Normal 4.0-14.0 F [facility] Comment on above: Order Comment: Order Added by Discern Expert. Performed By: #### 1 7996807, 7957413, 0589344, 3372261 ####[address] [address] Monocytes/Leukocytes Auto (Bld) [Pure # fraction] 0.9 E9/L Normal 0.2-1.0 [facility] Comment on above: Order Comment: Order Added by Discern Expert. Performed By: #### 1 1441412, 6888957, 4006334, 0727789 ####[place] [address] [address] Neutrophils/100 WBC (Bld) 84.6 % High 36.0-75.0 [facility] Comment on above: Order Comment: Order Added by Discern Expert. Performed By: #### 1 6324297, 9389281, 8623037, 4056715 ####[place] [address] [address] Neutrophils/Leukocytes Auto (Bld) [Pure # fraction] 8.0 E9/L High 2.0-7.5 [facility] Comment on above: Order Comment: Order Added by Discern Expert. Performed By: #### 1 8137960, 7646890, 2799671, 8120436 ####[place] [address] [address] BMPon 03-04-2023 Anion gap [Moles/Vol] 7 mmol/L Normal 6-16 [facility] Comment on above: Order Comment: line packet dropped off to floor...[facility] 03/04/2023 05:14:11 EDT Performed By: #### 1 5221496, 9144086, 4681434, 7387236 ####[address] [address] Chloride [Moles/Vol] 102 mmol/L Normal 101-111 [facility] Comment on above: Order Comment: line packet dropped off to floor...[facility] 03/04/2023 05:14:11 EDT Performed By: #### 1 1842731, 1673073, 8648702, 0760595 ####[facility] [address] [place] [address] CO2 [Moles/Vol] 27 mmol/L Normal 21-31 [facility] Comment on above: Order Comment: line packet dropped off to floor...[facility] 03/04/2023 05:14:11 EDT Performed By: #### 1 1910373, 3144918, 1246073, 1993595 ####[facility] [address] [place] [address] Potassium [Moles/Vol] 4.0 mmol/L Normal 3.5-5.3 [facility] Comment on above: Order Comment: line packet dropped off to floor...[facility] 03/04/2023 05:14:11 EDT Performed By: #### 1 8324074, 0566257, 0304834, 3572908 ####[facility] [address] [place] [address] Sodium [Moles/Vol] 132 mmol/L Low 135-145 [facility] Comment on above: Order Comment: line packet dropped off to floor...[facility] 03/04/2023 05:14:11 EDT Performed By: #### 1 1009447, 6161409, 7329883, 5458452 ####[facility] [address] [place] [address] Urea nitrogen/Creatinine [Mass ratio] 34 No Units High 10-20 [facility] Comment on above: Order Comment: line packet dropped off to floor...[facility] 03/04/2023 05:14:11 EDT Performed By: #### 1 3587362, 9610581, 9792030, 6439989 ####[facility] [address] [place] [address] BMPOrdered By: SYSTEM SYSTEM on 03-04-2023 Calcium [Mass/Vol] 8.1 mg/dL Low 8.9-11.1 [facility] Remisol Comment on above: Order Comment: line packet dropped off to floor...[facility] 03/04/2023 05:14:11 EDT Performed By: #### 1 6041825, 9669229, 2544617, 7250752 ####[facility] [address] [place] [address] Creatinine [Mass/Vol] 0.5 mg/dL Normal 0.5-1.3 [facility] Comment on above: Order Comment: line packet dropped off to floor...[facility] 03/04/2023 05:14:11 EDT Performed By: #### 1 7560933, 1622975, 9265898, 3408061 ####[facility] [address] [place] [address] Glucose [Mass/Vol] 129 mg/dL Normal 55-199 [facility] Remisol Comment on above: Order Comment: line packet dropped off to floor...[facility] 03/04/2023 05:14:11 EDT Result Comment: If t his glucose result represents a fasting glucose, interpretation should refer to the following reference range: 55-99 mg/dL Performed By: #### 1 8495952, 6458444, 5742755, 2418332 ####[address] [address] Urea nitrogen [Mass/Vol] 17 mg/dL Normal 5-21 [facility] Comment on above: Order Comment: line packet dropped off to floor...[facility] 03/04/2023 05:14:11 EDT Performed By: #### 1 0149127, 9764821, 6664268, 9543231 ####[address] [address] CBC w/ Auto DiffOrdered By: Yane Fitch on 03-04-2023 Erythrocyte distribution width (RBC) [Ratio] 17.9 % High 10.9-14.2 [facility] Comment on above: Performed By: #### 1 4462191, 4436470, 6617135, 2745836 ####[address] [place] [address] Hematocrit (Bld) [Volume fraction] 26.9 % Low 37.7-49.0 [facility] Comment on above: Performed By: #### 1 3872946, 9580199, 9953781, 9843574 ####[address] [address] Hemoglobin (Bld) [Mass/Vol] 8.8 g/dL Low 13.5-17.5 [facility] Comment on above: Performed By: #### 1 6472418, 8610761, 9106891, 7313506 ####[address] MCH (RBC) [Entitic mass] 27.4 pg Normal 27.0-34.0 [facility] Comment on above: Performed By: #### 1 3380460, 1278736, 1150877, 1242374 ####[place] [address] MCHC (RBC) [Mass/Vol] 32.8 g/dL Normal 31.4-36.0 [facility] Comment on above: Performed By: #### 1 1446683, 4661874, 3962387, 8165307 ####[address] [address] MCV (RBC) [Entitic vol] 83.7 fL Normal 80.0-100.0 F [facility] Comment on above: Performed By: #### 1 7411207, 3202219, 9316742, 8162229 ####[address] [address] Platelet mean volume (Bld) [Entitic vol] 8.4 fL Normal 6.4-10.8 [facility] Comment on above: Performed By: #### 1 2477595, 8744753, 3356722, 5883978 ####[address] [address] Platelets (Bld) [#/Vol] 185.0 E9/L Normal 150.0-500.0 [facility] Comment on above: Performed By: #### 1 8862477, 5591780, 7652797, 1925403 ####[address] RBC (Bld) [#/Vol] 3.2 E12/L Low 4.3-5.9 [facility] Comment on above: Performed By: #### 1 4967544, 3195327, 5977321, 4156958 ####[facility] [address] [place] [address] WBC corrected for nucl RBC Auto (Bld) [#/Vol] 9.5 E9/L Normal 4.0-11.0 [facility] Comment on above: Performed By: #### 1 1106006, 6981427, 3094546, 7806554 ####[facility] [address] [place] [address] CHEMISTRYOrdered By: SYSTEM SYSTEM on 03-04-2023 Urea nitrogen/Creatinine [Mass ratio] 34 mg/mg High 10 - 20 [facility] Remisol Capillary Glucose POCon 02-08 Glucose [Mass/Vol] 123 mg/dL High 55-99 [facility] Comment on above: Result Comment: Nuno MARIN Performed By: #### 2 58449637 ####[facility] [address] [place] [address] Glucose [Mass/Vol] 158 mg/dL High 55-99 [facility] Comment on above: Result Comment: Nuno MARIN Performed By: #### 2 93317382 ####[facility] [address] [place] [address] Glucose [Mass/Vol] 154 mg/dL High 55-99 [facility] Comment on above: Result Comment: Nuno MARIN Performed By: #### 2 14181575 ####[facility] [address] [place] [address] Glucose [Mass/Vol] 136 mg/dL High 55-99 [facility] Comment on above: Result Comment: Nuno MARIN Performed By: #### 2 17521367 ####[facility] [address] [place] [address] Consent for Anesthesiaon Consent for Anesthesia [id number] D:127 Normal [facility] Interdisciplinary Note - Michelet e Manageron 03-04-2023 Interdisciplinary Note - Business Investor [facility] Comment on above: Result Comment: Elec tronically Signed By: Дмитрий GUARDADO, Alla\.br\Date and Time Signed: 03/04/23 13:05 EDT Interdisciplinary Note - Alf singon 03-04-2023 Interdisciplinary Note - Nursing Patient dressing was changed as it come off with continued movement. Normal [facility] Interdisciplinary Note - Nut ritionon 03-04-2023 Interdisciplinary Note - Nutrition [facility] Comment on above: Result Comment: Elec tronically Signed By: Lucas MEADOWS, , Misty\.br\Date and Time Signed: 03/04/23 10:48 EDT Other Comment: dupli cation Interdisciplinary Note - Ashley n 03-04-2023 Interdisciplinary Note - OT [facility] IntraOperative Documentson 0 03-04-2023 IntraOperative Documents [id number] D:127 [facility] Main OR Intraoperative Recor don 03-04-2023 Main OR Intraoperative Record [facility] Progress Note-Physicianon Progress Note-Physician Normal [facility] Comment on above: Result Comment: Elec tronically Signed By: Katheryn WISE, Aiden\.br\Date and Time Signed: 03/04/23 21:12 EDT Progress Note-Physician Normal F [facility] Comment on above: Result Comment: Elec tronically Signed By: Chong Coe M.D\.br\Date and Time Signed: 03/04/23 09:39 EDT eGFROrdered By: LUZ Mckeon on 03-04-2023 GFR/1.73 sq M.predicted among non-blacks MDRD (S/P/Bld) [Vol rate/Area] 106 mL/min/1.73 m2 Normal >=59 [facility] Chem S Comment on above: Order Comment: Order added by Discern Expert. Result Comment: Basket Maker alen kidney disease could be indicated at eGFR's of less than 60 mL/min/1.73m2. Kidney failure is indicated at less than 15 mL/min/1.73m2. Performed By: #### 1 0446439, 4299312, 8300366, 9718635 ####[address] [place] [address] Auto Diffon 03-03-2023 Basophils/100 WBC (Bld) 2.3 % High 0.0-2.0 F [facility] Comment on above: Order Comment: Order Added by Discern Expert. Performed By: #### 2 398145, 7140625, 7053823, 39423460 ####[address] [place] [address] Basophils/Leukocytes Auto (Bld) [Pure # fraction] 0.2 E9/L Normal 0.0-0.2 [facility] Comment on above: Order Comment: Order Added by Discern Expert. Performed By: #### 2 574796, 6797117, 5841521, 94210593 ####[address] [place] [address] Eosinophils/100 WBC (Bld) 0.8 % Normal 0.0-8.0 [facility] Comment on above: Order Comment: Order Added by Discern Expert. Performed By: #### 2 164936, 1611103, 8490133, 40293100 ####[address] [address] Eosinophils/Leukocytes Auto (Bld) [Pure # fraction] 0.1 E9/L Normal 0.0-0.5 [facility] Comment on above: Order Comment: Order Added by Discern Expert. Performed By: #### 2 092071, 7624474, 7467723, 35944018 ####[address] [place] [address] Lymphocytes/100 WBC (Bld) 5.9 % Low 14.0-50.0 [facility] Comment on above: Order Comment: Order Added by Discern Expert. Performed By: #### 2 301618, 9336504, 0877848, 54275631 ####[address] [place] [address] Lymphocytes/Leukocytes Auto (Bld) [Pure # fraction] 0.4 E9/L Low 1.0-4.0 [facility] Comment on above: Order Comment: Order Added by Discern Expert. Performed By: #### 2 311983, 7064964, 5155213, 48376365 ####[address] [place] [address] Monocytes/100 WBC (Bld) 10.3 % Normal 4.0-14.0 [facility] Comment on above: Order Comment: Order Added by Discern Expert. Performed By: #### 2 778139, 8295710, 0447705, 00762440 ####[address] [place] [address] Monocytes/Leukocytes Auto (Bld) [Pure # fraction] 0.7 E9/L Normal 0.2-1.0 [facility] Comment on above: Order Comment: Order Added by Discern Expert. Performed By: #### 2 376673, 1693052, 7339079, 27321217 ####[address] [address] Neutrophils/100 WBC (Bld) 80.7 % High 36.0-75.0 [facility] Comment on above: Order Comment: Order Added by Discern Expert. Performed By: #### 2 970280, 8276198, 9200873, 92586810 ####[address] [address] Neutrophils/Leukocytes Auto (Bld) [Pure # fraction] 5.4 E9/L Normal 2.0-7.5 [facility] Comment on above: Order Comment: Order Added by Discern Expert. Performed By: #### 2 492990, 5724382, 2056356, 94028899 ####[address] [place] [address] BMPon 03-03-2023 Anion gap [Moles/Vol] 7 mmol/L Normal 6-16 [facility] Comment on above: Performed By: #### 2 882885, 0107631, 2222978, 15814332 ####[facility] [address] [place] [address] Calcium [Mass/Vol] 8.1 mg/dL Low 8.9-11.1 [facility] Comment on above: Performed By: #### 2 600897, 5643689, 9619146, 34326642 ####[facility] [address] [place] [address] Chloride [Moles/Vol] 102 mmol/L Normal 101-111 [facility] Comment on above: Performed By: #### 2 610880, 8079760, 0344468, 22054425 ####[facility] [address] [place] [address] CO2 [Moles/Vol] 27 mmol/L Normal 21-31 [facility] Comment on above: Performed By: #### 2 312462, 3693533, 9129607, 12809603 ####[facility] [address] [place] [address] Creatinine [Mass/Vol] 0.5 mg/dL Normal 0.5-1.3 [facility] Comment on above: Performed By: #### 2 443296, 0571713, 2979294, 06985530 ####[facility] [address] [place] [place] [address] Glucose [Mass/Vol] 125 mg/dL Normal 55-199 [facility] Comment on above: Result Comment: If t his glucose result represents a fasting glucose, interpretation should refer to the following reference range: 55-99 mg/dL Performed By: #### 2 592273, 5219045, 0397113, 45180615 ####[facility] [address] [place] [address] Potassium [Moles/Vol] 3.7 mmol/L Normal 3.5-5.3 [facility] Comment on above: Performed By: #### 2 127589, 5049415, 7359662, 27096661 ####[facility] [address] [place] [address] Sodium [Moles/Vol] 132 mmol/L Low 135-145 [facility] Comment on above: Performed By: #### 2 440976, 9153675, 5552257, 31950402 ####[facility] [address] [place] [address] Urea nitrogen [Mass/Vol] 20 mg/dL Normal 5-21 [facility] Comment on above: Performed By: #### 2 029485, 6006607, 8682484, 32922823 ####[facility] [address] [place] [address] Urea nitrogen/Creatinine [Mass ratio] 40 No Units High 10-20 [facility] Comment on above: Performed By: #### 2 406551, 8444635, 8369191, 23989767 ####[facility] [address] [place] [address] CBC w/ Auto Diffon 3 Erythrocyte distribution width (RBC) [Ratio] 18.1 % High 10.9-14.2 [facility] Comment on above: Performed By: #### 2 438390, 1890354, 3839730, 88078561 ####[facility] [address] [place] [address] Hematocrit (Bld) [Volume fraction] 26.1 % Low 37.7-49.0 [facility] Comment on above: Performed By: #### 2 630928, 9340285, 3395588, 50926335 ####[facility] [address] [place] [address] Hemoglobin (Bld) [Mass/Vol] 8.6 g/dL Low 13.5-17.5 [facility] Comment on above: Performed By: #### 2 897119, 3246281, 5341717, 39569927 ####[facility] [address] [place] [address] MCH (RBC) [Entitic mass] 27.1 pg Normal 27.0-34.0 [facility] Comment on above: Performed By: #### 2 249882, 6055344, 4176193, 99637753 ####[address] [place] [address] MCHC (RBC) [Mass/Vol] 32.9 g/dL Normal 31.4-36.0 [facility] Comment on above: Performed By: #### 2 968926, 7365896, 7520181, 10966330 ####[address] [address] MCV (RBC) [Entitic vol] 82.4 fL Normal 80.0-100.0 F [facility] Comment on above: Performed By: #### 2 404829, 6618067, 6730456, 65990025 ####[address] [address] Platelet mean volume (Bld) [Entitic vol] 9.1 fL Normal 6.4-10.8 [facility] Comment on above: Performed By: #### 2 567434, 4453164, 3958794, 14883984 ####[place] [address] [address] Platelets (Bld) [#/Vol] 169.0 E9/L Normal 150.0-500.0 [facility] Comment on above: Performed By: #### 2 040401, 0965993, 8611981, 36597112 ####[address] [address] RBC (Bld) [#/Vol] 3.2 E12/L Low 4.3-5.9 [facility] Comment on above: Performed By: #### 2 965733, 1953794, 4724188, 63750226 ####[address] [address] WBC corrected for nucl RBC Auto (Bld) [#/Vol] 6.7 E9/L Normal 4.0-11.0 [facility] Comment on above: Performed By: #### 2 175722, 1223174, 0519294, 60662955 ####[facility] [address] [place] [address] Capillary Glucose POCon 02-08 Glucose [Mass/Vol] 235 mg/dL High 55-99 [facility] Comment on above: Result Comment: Nuno MARIN Performed By: #### 2 [id number] ####[facility] [address] [place] [address] Glucose [Mass/Vol] 215 mg/dL High 55-99 [facility] Comment on above: Result Comment: Nuno MARIN Performed By: #### 2 [id number] ####[address] [address] Glucose [Mass/Vol] 111 mg/dL High 55-99 [facility] Comment on above: Result Comment: Nuno MARIN Performed By: #### 2 [id number] ####[address] [address] Glucose [Mass/Vol] 128 mg/dL High 55-99 [facility] Comment on above: Result Comment: Nuno MARIN Performed By: #### 2 [id number] ####[facility] [address] [place] [address] Consent for Procedure/Surger yon 03-03-2023 Consent for Procedure/Surgery [id number]#1.00CD: 127 Normal [facility] Discharge Instructionson Discharge Instructions [id number]#1.00CD :127 Normal [facility] Interdisciplinary Note - Michelet e Manageron 03-03-2023 Interdisciplinary Note - Business Investor 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 No family in room. Plan is to go to [facility] at discharge. Normal [facility] Comment on above: Result Comment: Elec tronically Signed By: Дмитрий RN, Alla\.br\Date and Time Signed: 03/03/23 11:35 EDT Main OR PACU I Recordon 02-08 Main OR PACU I Record Normal Fis [facility] Main OR Preoperative Recordo n 03-03-2023 Main OR Preoperative Record Normal [facility] Monitor Recordon 03-03-2023 Monitor Record [id number]#1.00CD :127 Normal [facility] Monitor Record [id number]#1.00CD :127 Normal [facility] Monitor Record [id number]#1.00CD :127 Normal [facility] Progress Note-Physicianon Progress Note-Physician Normal F [facility] Comment on above: Result Comment: Elec tronically Signed By: Katheryn WISE, Aiden\.br\Date and Time Signed: 03/03/23 18:30 EDT eGFRon 03-03-2023 GFR/1.73 sq M.predicted among non-blacks MDRD (S/P/Bld) [Vol rate/Area] 106 mL/min/1.73 m2 Normal >=59 [facility] Comment on above: Order Comment: Order added by Discern Expert. Result Comment: Basket Maker alen kidney disease could be indicated at eGFR's of less than 60 mL/min/1.73m2. Kidney failure is indicated at less than 15 mL/min/1.73m2. Performed By: #### 2 705910, 7065145, 3487225, 75886545 ####[facility] [address] [place] [address] Auto Diffon 03-02-2023 Basophils/100 WBC (Bld) 1.0 % Normal 0.0-2.0 F [facility] Comment on above: Order Comment: Order Added by Discern Expert. Performed By: #### 1 7954459, 0279807, 1599519, 5278247, 6887695 ####[facility] [address] [place] [address] Basophils/Leukocytes Auto (Bld) [Pure # fraction] 0.1 E9/L Normal 0.0-0.2 [facility] Comment on above: Order Comment: Order Added by Discern Expert. Performed By: #### 1 9863472, 8842300, 1927119, 7023916, 0391413 ####[address] [place] [address] Eosinophils/100 WBC (Bld) 0.2 % Normal 0.0-8.0 [facility] Comment on above: Order Comment: Order Added by Discern Expert. Performed By: #### 1 6546784, 9348822, 9795151, 5404537, 6682133 ####[address] [place] [address] Eosinophils/Leukocytes Auto (Bld) [Pure # fraction] 0.0 E9/L Normal 0.0-0.5 [facility] Comment on above: Order Comment: Order Added by Discern Expert. Performed By: #### 1 0690799, 0987826, 7327285, 5827223, 2524100 ####[address] [address] Lymphocytes/100 WBC (Bld) 4.7 % Low 14.0-50.0 [facility] Comment on above: Order Comment: Order Added by Discern Expert. Performed By: #### 1 1546829, 6387153, 5791087, 4576256, 3825297 ####[address] [address] Lymphocytes/Leukocytes Auto (Bld) [Pure # fraction] 0.3 E9/L Low 1.0-4.0 [facility] Comment on above: Order Comment: Order Added by Discern Expert. Performed By: #### 1 7712118, 1956215, 6062745, 5045157, 0312090 ####[address] [address] Monocytes/100 WBC (Bld) 10.1 % Normal 4.0-14.0 [facility] Comment on above: Order Comment: Order Added by Discern Expert. Performed By: #### 1 8272091, 6991044, 9324739, 1871861, 3368829 ####[facility] [address] [place] [address] Monocytes/Leukocytes Auto (Bld) [Pure # fraction] 0.7 E9/L Normal 0.2-1.0 [facility] Comment on above: Order Comment: Order Added by Cristiano Expert. Performed By: #### 1 3039422, 4968285, 0629500, 7161908, 0623455 ####[address] [place] [address] Neutrophils/100 WBC (Bld) 84.0 % High 36.0-75.0 [facility] Comment on above: Order Comment: Order Added by Cristiano Expert. Performed By: #### 1 3763305, 7898074, 6084660, 0544785, 3055437 ####[address] [address] Neutrophils/Leukocytes Auto (Bld) [Pure # fraction] 5.6 E9/L Normal 2.0-7.5 [facility] Comment on above: Order Comment: Order Added by Cristiano Expert. Performed By: #### 1 9207868, 5294529, 3445266, 1683212, 8382848 ####[address] [place] [address] BMPon 03-02-2023 Anion gap [Moles/Vol] 8 mmol/L Normal 6-16 [facility] Comment on above: Order Comment: line packet sent up to floor...[facility] 03/02/2023 05:13:13 EDT Performed By: #### 1 1448428, 6919954, 4345357, 2470041, 3210121 ####[address] [place] [address] Calcium [Mass/Vol] 8.1 mg/dL Low 8.9-11.1 [facility] Comment on above: Order Comment: line packet sent up to floor...[facility] 03/02/2023 05:13:13 EDT Performed By: #### 1 5638433, 7976701, 1530107, 7410934, 0604975 ####[facility] [address] [place] [address] Chloride [Moles/Vol] 102 mmol/L Normal 101-111 [facility] Comment on above: Order Comment: line packet sent up to floor...[facility] 03/02/2023 05:13:13 EDT Performed By: #### 1 6101210, 5141239, 9768813, 8509804, 4908696 ####[facility] [address] [place] [address] CO2 [Moles/Vol] 27 mmol/L Normal 21-31 [facility] Comment on above: Order Comment: line packet sent up to floor...[facility] 03/02/2023 05:13:13 EDT Performed By: #### 1 5686462, 5286104, 3542287, 4844967, 3471317 ####[facility] [address] [place] [address] Creatinine [Mass/Vol] 0.6 mg/dL Normal 0.5-1.3 [facility] Comment on above: Order Comment: line packet sent up to floor...[facility] 03/02/2023 05:13:13 EDT Performed By: #### 1 7591500, 1120837, 3925126, 4200819, 2978796 ####[facility] [address] [place] [address] Glucose [Mass/Vol] 132 mg/dL Normal 55-199 [facility] Comment on above: Order Comment: line packet sent up to floor...[facility] 03/02/2023 05:13:13 EDT Result Comment: If t his glucose result represents a fasting glucose, interpretation should refer to the following reference range: 55-99 mg/dL Performed By: #### 1 1586156, 6219772, 2037481, 7108400, 0422486 ####[facility] [address] [place] [address] Potassium [Moles/Vol] 3.9 mmol/L Normal 3.5-5.3 [facility] Comment on above: Order Comment: line packet sent up to floor...[facility] 03/02/2023 05:13:13 EDT Performed By: #### 1 0446055, 5795684, 0924623, 3371528, 7921802 ####[facility] [address] [place] [address] Sodium [Moles/Vol] 133 mmol/L Low 135-145 [facility] Comment on above: Order Comment: line packet sent up to floor...[facility] 03/02/2023 05:13:13 EDT Performed By: #### 1 8243179, 5396855, 0664073, 6265885, 7992621 ####[facility] [address] [place] [address] Urea nitrogen [Mass/Vol] 19 mg/dL Normal 5- [facility] Comment on above: Order Comment: line packet sent up to floor...[facility] 03/02/2023 05:13:13 EDT Performed By: #### 1 0866603, 5084363, 5946698, 9576632, 7265374 ####[facility] [address] [place] [address] Urea nitrogen/Creatinine [Mass ratio] 32 No Units High 10-20 [facility] Comment on above: Order Comment: line packet sent up to floor...[facility] 03/02/2023 05:13:13 EDT Performed By: #### 1 6410186, 0154889, 6146651, 2759351, 2956589 ####[facility] [address] [place] [address] C Blood Charcoalon 3 Blood Culture Charcoal Normal [facility] Comment on above: Performed By: #### 1 4760031 ####[facility] [address] [place] [address] Blood Culture Charcoal Normal [facility] Comment on above: Performed By: #### 1 5546753 ####[facility] [address] [place] [address] CBC w/ Auto Diffon 3 Erythrocyte distribution width (RBC) [Ratio] 17.5 % High 10.9-14.2 [facility] Comment on above: Performed By: #### 1 0165394, 8387568, 2895911, 5899951, 1934281 ####[facility] [address] [place] [address] Hematocrit (Bld) [Volume fraction] 25.4 % Low 37.7-49.0 [facility] Comment on above: Performed By: #### 1 1002199, 4303526, 7272979, 0945668, 6658313 ####[facility] [address] [place] [address] Hemoglobin (Bld) [Mass/Vol] 8.3 g/dL Low 13.5-17.5 [facility] Comment on above: Performed By: #### 1 9853680, 1820330, 5152457, 8255418, 1625184 ####[place] [address] MCH (RBC) [Entitic mass] 26.9 pg Low 27.0-34.0 [facility] Comment on above: Performed By: #### 1 7299187, 5624981, 8745588, 4576478, 4835696 ####[facility] [address] [place] [address] MCHC (RBC) [Mass/Vol] 32.7 g/dL Normal 31.4-36.0 [facility] Comment on above: Performed By: #### 1 2996667, 2402553, 6634606, 5916647, 7623009 ####[facility] [address] [place] [address] MCV (RBC) [Entitic vol] 82.3 fL Normal 80.0-100.0 F [facility] Comment on above: Performed By: #### 1 0828737, 9895886, 7712754, 7859844, 4499101 ####[address] [place] [address] Platelet mean volume (Bld) [Entitic vol] 8.5 fL Normal 6.4-10.8 [facility] Comment on above: Performed By: #### 1 2500191, 5294458, 4546566, 3279349, 3596816 ####[facility] [address] [place] [address] Platelets (Bld) [#/Vol] 152.0 E9/L Normal 150.0-500.0 [facility] Comment on above: Performed By: #### 1 7352487, 7166384, 0930869, 1726447, 5915338 ####[facility] [address] [place] [address] RBC (Bld) [#/Vol] 3.1 E12/L Low 4.3-5.9 [facility] Comment on above: Performed By: #### 1 0025973, 6502900, 8183595, 6379500, 2274993 ####[facility] [address] [place] [address] WBC corrected for nucl RBC Auto (Bld) [#/Vol] 6.7 E9/L Normal 4.0-11.0 [facility] Comment on above: Performed By: #### 1 3658150, 6138733, 7258902, 5030240, 7728986 ####[facility] [address] [place] [address] CHEMISTRYOrdered By: SYSTEM SYSTEM on 03-02-2023 CK [Catalytic activity/Vol] 197 [iU]/d Normal 14 - 261 Int._Unit/L [facility] Remisol CKon 03-02-2023 CK [Catalytic activity/Vol] 197 Int._Unit/L Normal 14-261 [facility] Comment on above: Performed By: #### 1 0781892, 0839109, 4792178, 1850442, 2332215 ####[facility] [address] [place] [address] Capillary Glucose POCon 02-08 Glucose [Mass/Vol] 98 mg/dL Normal 55-99 [facility] Comment on above: Result Comment: Nuno aranda RN/ Performed By: #### 2 08532409 ####[facility] [address] [place] [address] Glucose [Mass/Vol] 96 mg/dL Normal 55-99 [facility] Comment on above: Result Comment: Nuno MARIN Performed By: #### 2 13244682 ####[facility] [address] [place] [address] Glucose [Mass/Vol] 164 mg/dL High 55-99 [facility] Comment on above: Result Comment: Nuno MARIN Performed By: #### 2 44908192 ####[facility] [address] [place] [address] Glucose [Mass/Vol] 112 mg/dL High 55-99 [facility] Comment on above: Result Comment: Nuno MARIN Performed By: #### 2 92487577 ####[facility] [address] [place] [address] Glucose [Mass/Vol] 111 mg/dL High 55-99 [facility] Comment on above: Result Comment: Nuno MARIN Performed By: #### 2 79066662 ####[facility] [address] [place] [address] Ferritinon 03-02-2023 Ferritin [Mass/Vol] 86 ng/mL Normal 24-[address] [facility] Comment on above: Result Comment: NORM ALS MEN <30 YRS 16-132 ng/mL MEN >30 YRS 8-338 ng/mL WOMEN (PREMEN) 6-104 ng/mL WOMEN (POSTMEN) 12-210 ng/mL Performed By: #### 1 1058433, 05217305, 2606897, 8286118, 3178203, 85263965, 7372581, 5356393, 9692928, 24945175 ####[facility] [address] [place] [address] Folateon 03-02-2023 Folate [Mass/Vol] 19.8 ng/mL Normal >=6.7 [facility] Comment on above: Performed By: #### 1 2271932, 67128334, 3301455, 7584880, 0704807, 38029361, 9362180, 9618439, 7017917, 08248350 ####[facility] [address] [place] [address] Interdisciplinary Note - Michelet e Manageron 03-02-2023 Interdisciplinary Note - Business Investor Normal [facility] Comment on above: Result Comment: Elec tronically Signed By: Chong GUARDADO, Leona\.br\Date and Time Signed: 03/02/23 11:48 EDT Progress Note-Physicianon Progress Note-Physician Normal F [facility] Comment on above: Result Comment: Elec tronically Signed By: Lynda Carrero RN\.br\Date and Time Signed: 03/02/23 09:23 EDT\.br\Electronically Co-Signed By: Andrea Lomax MD\.br\Date and Time Co-Signed: 03/02/23 09:35 EDT Vit B12on 03-02-2023 Cobalamin (Vitamin B12) [Mass/Vol] 1175 pg/mL Normal 50-1500 [facility] Comment on above: Performed By: #### 2 068338, 9784771, 70562271, 48716560, 14958449, 51902549, 4119716, 1703597 ####[facility] [address] [place] [address] eGFRon 03-02-2023 GFR/1.73 sq M.predicted among non-blacks MDRD (S/P/Bld) [Vol rate/Area] 100 mL/min/1.73 m2 Normal >=59 [facility] Comment on above: Order Comment: Order added by Discern Expert. Result Comment: Basket Maker alen kidney disease could be indicated at eGFR's of less than 60 mL/min/1.73m2. Kidney failure is indicated at less than 15 mL/min/1.73m2. Performed By: #### 1 5403709, 2686252, 4738672, 0545994, 0945585 ####[facility] [address] [place] [address] ABO/Rhon 03-01-2023 ABO/Rh Positive Invalid Interpretation Code [facility] Comment on above: Performed By: #### 1 6976280, 97328104, 0652736, 3902043, 5211833, 36356315, 7996635, 4227314, 8379919, 62936930 ####[facility] [address] [place] [address] ABO/Rh History Checkon 03-01 ABO/Rh History Check Type verified by se cond s Normal [facility] Comment on above: Performed By: #### 1 7393014, 94078942, 3593774, 1042230, 2154417, 97078793, 4929500, 5343311, 4754632, 16604891 ####[address] [place] [address] ABO/Rh Retypeon 03-01-2023 ABO/Rh Retype Interp Positive Invalid Interpretation Code [facility] Comment on above: Performed By: #### 2 350825, 8030977, 37458193, 06931205, 37992777, 40555446, 8371427, 7176682 ####[address] [address] ABSCon 03-01-2023 ABSC Gel Interp Negative Normal [facility] Comment on above: Performed By: #### 1 2687422, 06587066, 9068407, 8871573, 3035880, 01796263, 2689540, 3055661, 4132279, 84404153 ####[facility] [address] [place] [address] Auto Diffon 03-01-2023 Basophils/100 WBC (Bld) 0.6 % Normal 0.0-2.0 F [facility] Comment on above: Order Comment: Order Added by Discern Expert. Performed By: #### 2 359918, 5395624, 77861624, 60583903, 40144326, 30437921, 5785469, 2437798 ####[address] [place] [address] Basophils/Leukocytes Auto (Bld) [Pure # fraction] 0.0 E9/L Normal 0.0-0.2 [facility] Comment on above: Order Comment: Order Added by Discern Expert. Performed By: #### 2 559908, 9173106, 39403089, 12803474, 64800966, 16618067, 6528711, 3248925 ####[address] [place] [address] Eosinophils/100 WBC (Bld) 0.5 % Normal 0.0-8.0 [facility] Comment on above: Order Comment: Order Added by Discern Expert. Performed By: #### 2 943156, 8580302, 94640929, 34837481, 85126910, 39991800, 6644948, 7014533 ####[address] [address] Eosinophils/Leukocytes Auto (Bld) [Pure # fraction] 0.0 E9/L Normal 0.0-0.5 [facility] Comment on above: Order Comment: Order Added by Discern Expert. Performed By: #### 2 512441, 5769725, 44372092, 26690117, 60981742, 32107365, 1552013, 2392535 ####[address] [place] [address] Lymphocytes/100 WBC (Bld) 8.7 % Low 14.0-50.0 [facility] Comment on above: Order Comment: Order Added by Discern Expert. Performed By: #### 2 264283, 7640681, 10572749, 83577321, 46901159, 86657347, 4984827, 8887713 ####[address] [place] [address] Lymphocytes/Leukocytes Auto (Bld) [Pure # fraction] 0.5 E9/L Low 1.0-4.0 [facility] Comment on above: Order Comment: Order Added by Cristiano Expert. Performed By: #### 2 336822, 9949949, 71943293, 83280457, 67617258, 77917169, 4984381, 3906135 ####[facility] [address] [place] [address] Monocytes/100 WBC (Bld) 11.3 % Normal 4.0-14.0 F [facility] Comment on above: Order Comment: Order Added by Discern Expert. Performed By: #### 2 800762, 9785293, 39373930, 77802185, 39919997, 34052297, 8009628, 0482122 ####[address] [place] [address] Monocytes/Leukocytes Auto (Bld) [Pure # fraction] 0.6 E9/L Normal 0.2-1.0 [facility] Comment on above: Order Comment: Order Added by Discern Expert. Performed By: #### 2 843892, 8467323, 87125256, 70215736, 20763170, 09969314, 7221098, 2792662 ####[address] [place] [address] Neutrophils/100 WBC (Bld) 78.9 % High 36.0-75.0 [facility] Comment on above: Order Comment: Order Added by Discern Expert. Performed By: #### 2 975024, 2553387, 71846380, 56303178, 53536408, 69812565, 5518341, 9781058 ####[address] [place] [address] Neutrophils/Leukocytes Auto (Bld) [Pure # fraction] 4.3 E9/L Normal 2.0-7.5 [facility] Comment on above: Order Comment: Order Added by Discern Expert. Performed By: #### 2 878717, 3871311, 62138613, 28470340, 10829212, 95880606, 8182002, 1505651 ####[address] [place] [address] BLOOD BANKOrdered By: Fabi Massey on 03-01-2023 ABO/Rh Interp Positive Invalid Interpretation Code [facility] BB Subsection ABSC Gel Interp Negative (03/01/23 8:13 AM) Normal [facility] BB Subsection ABO/Rh Retype Interp Positive Invalid Interpretation Code [facility] BB Subsection Blood Bank ID#on 03-01-2023 BBID# [id number] Invalid Interpretation Code [facility] Comment on above: Performed By: #### 1 8877122, 44460701, 4319496, 8763094, 1008220, 62562502, 5026230, 1177525, 9894231, 78681131 ####[facility] [address] [place] [address] CBC w/ Auto Diffon Erythrocyte distribution width (RBC) [Ratio] 19.2 % High 10.9-14.2 [facility] Comment on above: Performed By: #### 2 125871, 2755939, 75329930, 70754938, 35199463, 04582196, 6680238, 0103654 ####[facility] [address] [place] [address] Hematocrit (Bld) [Volume fraction] 19.9 % Low 37.7-49.0 [facility] Comment on above: Performed By: #### 2 349335, 9886849, 91273731, 13212651, 35454244, 34221173, 6298083, 7056343 ####[facility] [address] [place] [address] Hemoglobin (Bld) [Mass/Vol] 6.5 g/dL Abnormal 13.5-17.5 [facility] Comment on above: Result Comment: Resu lts Called To Isaac/Angela Mendez By _ And Read Back For Confirmation On 03/01/2023 07:50:53 EDTResults Verified By Repeat Analysis Performed By: #### 2 685067, 9343226, 40805312, 29700219, 63674125, 60294197, 2750184, 7148170 ####[facility] [address] [place] [address] MCH (RBC) [Entitic mass] 26.9 pg Low 27.0-34.0 [facility] Comment on above: Performed By: #### 2 980641, 1719721, 08417702, 47479333, 86707131, 17787581, 6579893, 0139374 ####[address] [place] [address] MCHC (RBC) [Mass/Vol] 32.6 g/dL Normal 31.4-36.0 [facility] Comment on above: Performed By: #### 2 946271, 0936695, 47505527, 62348518, 94861040, 07523296, 7479024, 1116074 ####[address] [address] MCV (RBC) [Entitic vol] 82.3 fL Normal 80.0-100.0 F [facility] Comment on above: Performed By: #### 2 460443, 4633783, 86330937, 44569035, 33188677, 18821474, 7719054, 9540393 ####[address] [address] Platelet mean volume (Bld) [Entitic vol] 8.9 fL Normal 6.4-10.8 [facility] Comment on above: Performed By: #### 2 173465, 5420622, 43221293, 71623086, 40365350, 72389531, 1326971, 2208579 ####[address] [address] Platelets (Bld) [#/Vol] 161.0 E9/L Normal 150.0-500.0 [facility] Comment on above: Performed By: #### 2 156925, 6400506, 20041588, 36306685, 70501680, 92633438, 7947117, 3436682 ####[address] [address] RBC (Bld) [#/Vol] 2.4 E12/L Low 4.3-5.9 [facility] Comment on above: Performed By: #### 2 083904, 0299055, 08722553, 06777781, 04923862, 55035214, 9935277, 4586616 ####[facility] [address] [place] [address] WBC corrected for nucl RBC Auto (Bld) [#/Vol] 5.5 E9/L Normal 4.0-11.0 [facility] Comment on above: Performed By: #### 2 995723, 4809961, 97783721, 39995815, 07564302, 47473836, 3085132, 8960518 ####[facility] [address] [place] [address] CHEMISTRYOrdered By: SYSTEM SYSTEM on 03-01-2023 Ferritin [...] 03-01-2023 Albumin [Mass/Vol] 2.2 g/dL Low 3.3-5.0 [facility] Comment on above: Performed By: #### 2 340491, 5460362, 73190514, 16973438, 73586995, 97002016, 8985441, 3544866 ####[facility] [address] [place] [address] Albumin/Globulin (S) [Mass conc ratio] 0.5 Low 1.1-2.2 [facility] Comment on above: Performed By: #### 2 732282, 8611397, 82505530, 30090220, 22020981, 45918636, 9434870, 5466429 ####[facility] [address] [place] [address] ALP [Catalytic activity/Vol] 77 Int._Unit/L Normal 21-98 [facility] Comment on above: Performed By: #### 2 309731, 9339822, 05015257, 40713849, 17723787, 96160031, 0464003, 6248653 ####[facility] [address] [place] [address] ALT No additional P-5'-P [Catalytic activity/Vol] 24 Int._Unit/L Normal 6-46 [facility] Comment on above: Performed By: #### 2 508124, 5324989, 41527567, 46061171, 48707104, 05552126, 6842928, 9561226 ####[facility] [address] [place] [address] Anion gap [Moles/Vol] 8 mmol/L Normal 6-16 [facility] Comment on above: Performed By: #### 2 019729, 7250891, 27503673, 49374048, 41880747, 91107203, 3381046, 3680940 ####[facility] [address] [place] [address] AST [Catalytic activity/Vol] 34 Int._Unit/L Normal 5-43 [facility] Comment on above: Performed By: #### 2 040729, 8169586, 93262718, 49912002, 00724426, 48654335, 9862949, 5347534 ####[facility] [address] [place] [address] Bilirubin [Mass/Vol] 0.6 mg/dL Normal 0.0-1.1 [facility] Comment on above: Performed By: #### 2 673046, 7730407, 08447076, 33145032, 93388072, 47579922, 5481532, 9785534 ####[facility] [address] [place] [address] Calcium [Mass/Vol] 8.1 mg/dL Low 8.9-11.1 [facility] Comment on above: Performed By: #### 2 280793, 7523794, 71532288, 11705947, 47237335, 92635795, 9109067, 8441577 ####[facility] [address] [place] [address] Chloride [Moles/Vol] 99 mmol/L Low 101-111 [facility] Comment on above: Performed By: #### 2 954942, 9901045, 28215054, 91726711, 55398039, 39239578, 9032862, 8992121 ####[address] [place] [address] CO2 [Moles/Vol] 28 mmol/L Normal 21-31 [facility] Comment on above: Performed By: #### 2 248165, 3727147, 54948160, 25623698, 94740250, 30359011, 9960183, 8149054 ####[facility] [address] [place] [address] Creatinine [Mass/Vol] 0.5 mg/dL Normal 0.5-1.3 [facility] Comment on above: Performed By: #### 2 296866, 0380793, 61172176, 08588568, 47039189, 13372664, 3614023, 9843420 ####[facility] [address] [place] [address] Globulin (S) [Mass/Vol] 4.1 g/dL High 1.4-4.0 F [facility] Comment on above: Performed By: #### 2 728859, 4577155, 70435825, 92813577, 16667073, 74179165, 5646718, 9842565 ####[facility] [address] [place] [address] Glucose [Mass/Vol] 110 mg/dL Normal 55-199 [facility] Comment on above: Result Comment: If t his glucose result represents a fasting glucose, interpretation should refer to the following reference range: 55-99 mg/dL Performed By: #### 2 857889, 7462849, 73383330, 82053696, 63186447, 11687025, 9615841, 6977262 ####[facility] [address] [place] [address] Potassium [Moles/Vol] 4.0 mmol/L Normal 3.5-5.3 [facility] Comment on above: Performed By: #### 2 063401, 9715015, 41635661, 79458789, 83823124, 22283530, 8833853, 5628540 ####[facility] [address] [place] [address] Protein [Mass/Vol] 6.3 g/dL Normal 6.0-7.8 [facility] Comment on above: Performed By: #### 2 911708, 1493963, 99322736, 73716749, 55148814, 46295994, 6985948, 9473474 ####[facility] [address] [place] [address] Sodium [Moles/Vol] 131 mmol/L Low 135-145 [facility] Comment on above: Performed By: #### 2 018654, 2204302, 89859110, 66049009, 50797758, 09355723, 8557742, 0972257 ####[facility] [address] [place] [address] Urea nitrogen [Mass/Vol] 22 mg/dL High 5-21 [facility] Comment on above: Performed By: #### 2 784878, 5866465, 71265251, 87923161, 67269300, 23503440, 3205985, 4686491 ####[facility] [address] [place] [address] Urea nitrogen/Creatinine [Mass ratio] 44 No Units High 10-20 [facility] Comment on above: Performed By: #### 2 035485, 5034628, 09212108, 01578318, 57252146, 69626019, 1300887, 5265499 ####[facility] [address] [place] [address] Capillary Glucose POCon 05 Glucose [Mass/Vol] 160 mg/dL High 55-99 [facility] Comment on above: Result Comment: Nuno MARIN Performed By: #### 2 66335095 ####[facility] [address] [place] [address] Glucose [Mass/Vol] 110 mg/dL High 55-99 [facility] Comment on above: Result Comment: Nuno MARIN Performed By: #### 2 37468673 ####[facility] [address] [place] [address] Glucose [Mass/Vol] 173 mg/dL High 55-99 [facility] Comment on above: Result Comment: Nuno MARIN Performed By: #### 2 31158877 ####[facility] [address] [place] [address] Glucose [Mass/Vol] 128 mg/dL High 55-99 [facility] Comment on above: Result Comment: Nuno aranda RN/ Performed By: #### 2 [id number] ####[facility] [address] [place] [address] Consultation Noteon 03-01-20 Consultation Note Normal [facility] Comment on above: Result Comment: Elec tronically Signed By: Win GUARDADO, Ольга Roman\.br\Date and Time Signed: 03/01/23 07:00 EDT\.br\Electronically Co-Signed By: Andrea Lomax MD\.br\Date and Time Co-Signed: 03/01/23 09:00 EDT HEMATOLOGYOrdered By: Fabi Herbert on 03-01-2023 Reticulocytes/100 RBC (Bld) 1.6 % High 0.5 - 1.5 % [facility]eAuto[facility] Comment on above: Result Comment: This Reticulocyte Count Has Been Corrected For Anemia Anisocytosis Ql (Bld) Present (03/01/23 5:30 AM) Normal [facility]Man[facility] Hypochromia Auto Ql (Bld) Present (03/01/23 5:30 AM) Normal [facility] HemeManSS Morphology Jah (Bld) [Interp] See Morphology (03/01/23 5:30 AM) Normal [facility] HemeManSS Interdisciplinary Note - Michelet e Manageron 03-01-2023 Interdisciplinary Note - Business Investor Normal [facility] Comment on above: Result Comment: Elec tronically Signed By: Chong UGARDADO, Leona\.br\Date and Time Signed: 03/01/23 11:25 EDT Interdisciplinary Note - Soc ial Workeron 03-01-2023 Interdisciplinary Note - Associate Professor Plant Pathology Normal [facility] Ironon 03-01-2023 Iron [Mass/Vol] 21 microgram/dL Low 35-153 [facility] Comment on above: Performed By: #### 1 8770215, 47797490, 4887533, 3419173, 8744454, 73299523, 4082236, 8020010, 3194732, 53390987 ####[facility] [address] [place] [address] LDHon 03-01-2023 LDH [Catalytic activity/Vol] 127 Int._Unit/L Normal 93-218 [facility] Comment on above: Performed By: #### 1 3393308, 58799164, 3027054, 3943099, 5499061, 75388444, 6776720, 1090460, 7122885, 17181519 ####[facility] [address] [place] [address] MRI Brain w/o Contraston MRI Brain w/o Contrast Normal [facility] Morphon 03-01-2023 Anisocytosis Ql (Bld) Present Normal [facility] Comment on above: Order Comment: Order Added by Discern Expert. Performed By: #### 2 642304, 2600921, 21385030, 96528266, 96106947, 14302543, 8000884, 6685063 ####[facility] [address] [place] [address] Hypochromia Auto Ql (Bld) Present Normal [facility] Comment on above: Order Comment: Order Added by Discern Expert. Performed By: #### 2 334738, 6739374, 54350057, 37851380, 50792511, 66998534, 6319552, 2147695 ####[facility] [address] [place] [address] Morphology Jah (Bld) [Interp] See Morphology Normal [facility] Comment on above: Order Comment: Order Added by Discern Expert. Performed By: #### 2 412904, 0628266, 89248307, 19011135, 54620488, 65997404, 8360984, 3319877 ####[facility] [address] [place] [address] Progress Note-Physicianon Progress Note-Physician Normal [facility] Comment on above: Result Comment: Elec tronically Signed By: Chong Coe M.D\Date and Time Signed: 03/01/23 14:52 EDT Progress Note-Physician Normal [facility] Comment on above: Result Comment: Elec tronically Signed By: FAVIAN WISE, Shayy\.br\Date and Time Signed: 03/01/23 09:01 EDT RAD - MRI Screening Formon 0 03-01-2023 RAD - MRI Screening Form [id number]: 127 Normal [facility] RAD - MRI Screening Form [id number]:1 27 Normal [facility] RCOon 03-01-2023 # of Units 2 Invalid Interpretation Code [facility] Comment on above: Result Comment: 03/01 9:30 [id number] product ready and called to Emerald Castillo/ Isaac at 03/01/2023 09:29:57 EDT by BR. Performed By: #### 1 [id number] ####[facility] [address] [place] [address] Date Required 03/01/2023 Invalid Interpretation Code [facility] Comment on above: Performed By: #### 1 0968381 ####[facility] [address] [place] [address] Product Type None Required Invalid Interpretation Code [facility] Comment on above: Performed By: #### 1 2447023 ####[facility] [address] [place] [address] Retic Counton 03-01-2023 Reticulocytes/100 RBC (Bld) 1.6 % High 0.5-1.5 [facility] Comment on above: Result Comment: This Reticulocyte Count Has Been Corrected For Anemia Performed By: #### 1 7615266, 89091889, 5859062, 5830798, 3717381, 84446075, 1837615, 3595432, 1421093, 44318109 ####[facility] [address] [place] [address] TIBC Calculatedon 03-01-2023 Iron binding capacity [Mass/Vol] 290 microgram/dL Normal 250-400 [facility] Comment on above: Performed By: #### 1 9075152, 23961071, 7878092, 1594407, 1144089, 12180725, 8330403, 2851300, 4734808, 07863523 ####[facility] [address] [place] [address] Transferrin [Mass/Vol] 207 mg/dL Normal 200-370 [facility] Comment on above: Performed By: #### 1 5694177, 20990448, 3601113, 5054724, 5283441, 40617915, 4964598, 9856113, 3354406, 82582795 ####[facility] [address] [place] [address] TSH With T4fr Reflexon 03-01 TSH Qn 0.95 m[IU]/L Normal 0.34-5.60 [facility] Comment on above: Performed By: #### 2 605370, 6018185, 68193794, 25396075, 61586450, 92697811, 6126017, 6633361 ####[facility] [address] [place] [address] eGFRon 03-01-2023 GFR/1.73 sq M.predicted among non-blacks MDRD (S/P/Bld) [Vol rate/Area] 106 mL/min/1.73 m2 Normal >=59 [facility] Comment on above: Order Comment: Order added by Discern Expert. Result Comment: Basket Maker alen kidney disease could be indicated at eGFR's of less than 60 mL/min/1.73m2. Kidney failure is indicated at less than 15 mL/min/1.73m2. Performed By: #### 2 769043, 4619836, 95694991, 25110111, 81867169, 86951319, 6983420, 5112721 ####[facility] [address] [place] [address] Capillary Glucose POCon 02-08 Glucose [Mass/Vol] 212 mg/dL High 55-99 [facility] Comment on above: Result Comment: Nuno aranda RN/ Performed By: #### 2 88122502 ####[facility] [address] [facility] [place] [facility] [place] [address] Glucose [Mass/Vol] 134 mg/dL High 55-99 [facility] Comment on above: Result Comment: Nuno aranda RN/ Performed By: #### 2 03281317 ####[facility] [address] [facility] [place] [place] [address] Glucose [Mass/Vol] 157 mg/dL High 55-99 [facility] Comment on above: Result Comment: Nuno aranda RN/ Performed By: #### 2 19621941 ####[facility] [address] [facility] [place] [facility] [place] [address] Glucose [Mass/Vol] 126 mg/dL High 55-99 [facility] Comment on above: Result Comment: Nuno aranda RN/ Performed By: #### 2 96127987 ####[facility] [address] [place] [address] Interdisciplinary Note - Michelet e Manageron 02-28-2023 Interdisciplinary Note - Business Investor [facility] Comment on above: Result Comment: Elec tronically Signed By: Chong GUARDADO, Leona\.br\Date and Time Signed: 02/28/23 12:21 EDT Interdisciplinary Note - Nut ritionon 02-28-2023 Interdisciplinary Note - Nutrition Pt reassessed. 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 otherwise, pt demonstrates poor appetite, but accepts supplements/nourishments . Goal not met, continue POC. [facility] Comment on above: Result Comment: Elec tronically Signed By: Lucas MEADOWS, , Misty\.br\Date and Time Signed: 02/28/23 13:34 EDT BMPon 02-27-2023 Anion gap [Moles/Vol] 10 mmol/L Normal 6-16 [facility] Comment on above: Performed By: #### 1 1681881, 2736666 ####[facility] [address] [facility] [place] [place] [address] Calcium [Mass/Vol] 8.1 mg/dL Low 8.9-11.1 [facility] Comment on above: Performed By: #### 1 8440831, 8094431 ####[facility] [address] [place] [address] Chloride [Moles/Vol] 98 mmol/L Low 101-111 [facility] Comment on above: Performed By: #### 1 0934942, 1109107 ####[facility] [address] [place] [address] CO2 [Moles/Vol] 28 mmol/L Normal 21-31 [facility] Comment on above: Performed By: #### 1 6886297, 8924546 ####[facility] [address] [place] [address] Creatinine [Mass/Vol] 0.6 mg/dL Normal 0.5-1.3 [facility] Comment on above: Performed By: #### 1 3191573, 0538698 ####[facility] [address] [place] [address] Glucose [Mass/Vol] 147 mg/dL Normal 55-199 [facility] Comment on above: Result Comment: If t his glucose result represents a fasting glucose, interpretation should refer to the following reference range: 55-99 mg/dL Performed By: #### 1 5815436, 0458483 ####[facility] [address] [place] [address] Potassium [Moles/Vol] 3.6 mmol/L Normal 3.5-5.3 [facility] Comment on above: Performed By: #### 1 9854736, 8607587 ####[facility] [address] [place] [address] Sodium [Moles/Vol] 132 mmol/L Low 135-145 [facility] Comment on above: Performed By: #### 1 0582417, 4086314 ####[facility] [address] [place] [address] Urea nitrogen [Mass/Vol] 28 mg/dL High 5-21 [facility] Comment on above: Performed By: #### 1 3441247, 8537381 ####[facility] [address] [place] [address] Urea nitrogen/Creatinine [Mass ratio] 47 No Units High 10-20 [facility] Comment on above: Performed By: #### 1 4730944, 2281006 ####[facility] [address] [place] [address] Capillary Glucose POCon 02-08 Glucose [Mass/Vol] 95 mg/dL Normal 55-99 [facility] Comment on above: Result Comment: Nuno aranda RN/ Performed By: #### 2 03897627 ####[facility] [address] [facility] [address] Glucose [Mass/Vol] 115 mg/dL High 55-99 [facility] Comment on above: Result Comment: Nuno MARIN Performed By: #### 2 00918253 ####[facility] [address] [facility] [place] [place] [address] Glucose [Mass/Vol] 153 mg/dL High 55-99 [facility] Comment on above: Result Comment: Nuno MARIN Performed By: #### 2 82966137 ####[facility] [address] [facility] [place] [place] [address] Glucose [Mass/Vol] 111 mg/dL High 55-99 [facility] Comment on above: Result Comment: Nuno MARIN Performed By: #### 2 47473310 ####[facility] [address] [facility] [place] [place] [address] Coding Queryon 02-27-2023 Coding Query Normal [facility] Coding Query Normal [facility] Interdisciplinary Note - Michelet e Manageron 02-27-2023 Interdisciplinary Note - Business Investor Normal [facility] Comment on above: Result Comment: Elec tronically Signed By: Sonia Morejon\Otiliabr\Date and Time Signed: 02/27/23 15:31 EDT Progress Note-Physicianon Progress Note-Physician Normal F [facility] Comment on above: Result Comment: Elec tronically Signed By: NEVAEH WISE, Ramos\camilla\Date and Time Signed: 02/27/23 10:31 EDT eGFRon 02-27-2023 GFR/1.73 sq M.predicted among non-blacks MDRD (S/P/Bld) [Vol rate/Area] 100 mL/min/1.73 m2 Normal >=59 [facility] Comment on above: Order Comment: Order added by Discern Expert. Result Comment: Basket Maker alen kidney disease could be indicated at eGFR's of less than 60 mL/min/1.73m2. Kidney failure is indicated at less than 15 mL/min/1.73m2. Performed By: #### 1 4847131, 3946962 ####[facility] [address] [place] [address] CT Head or Brain w/o Contras ton 02-26-2023 CT Head or Brain w/o Contrast Normal [facility] CT Spine Cervical w/o Contra ston 02-26-2023 CT Spine Cervical w/o Contrast Normal [facility] Capillary Glucose POCon 02-08 Glucose [Mass/Vol] 127 mg/dL High 55- [facility] Comment on above: Result Comment: Nuno MARIN Performed By: #### 2 38911379 ####[facility] [address] [place] [address] Glucose [Mass/Vol] 121 mg/dL [facility] Comment on above: Result Comment: Nuno MARIN Performed By: #### 2 58745800 ####[facility] [address] [place] [address] Glucose [Mass/Vol] 169 mg/dL High - [facility] Comment on above: Result Comment: Nuno MARIN Performed By: #### 2 10961595 ####[facility] [address] [place] [address] Glucose [Mass/Vol] 140 mg/dL High 55- [facility] Comment on above: Result Comment: Nuno MARIN Performed By: #### 2 65840107 ####[facility] [address] [place] [address] Glucose [Mass/Vol] 169 mg/dL High -[address] [place] [address] Comment on above: Performed By: #### 2 37708128 ####[facility] [address] [place] [address] Interdisciplinary Note - Michelet e Manageron 02-26-2023 Interdisciplinary Note - Business Investor [facility] Comment on above: Result Comment: Elec tronically Signed By: Sonia Morejon\Otiliabr\Date and Time Signed: 02/26/23 10:51 EDT Progress Note-Physicianon Progress Note-Physician Normal [facility] Comment on above: Result Comment: Elec tronically Signed By: NEVAEH WISE, Betibr\Date and Time Signed: 02/26/23 10:17 EDT C Urineon 02-25-2023 Bacteria identified Cx Nom (U) [facility] Comment on above: Performed By: #### 1 2233484, 5542630 ####[facility] [address] [place] [address] Capillary Glucose POCon 02-07 Glucose [Mass/Vol] 133 mg/dL High [address] Comment on above: Result Comment: Nuno aranda RN/ Performed By: #### 2 50812346 ####[facility] [address] [place] [address] Glucose [Mass/Vol] 91 mg/dL Normal -[address] [place] [address] Comment on above: Result Comment: Sayra francia Meter Performed By: #### 2 95513966 ####[facility] [address] [place] [address] Glucose [Mass/Vol] 155 mg/dL High [address] Comment on above: Result Comment: Nuno aranda RN/ Performed By: #### 2 94338115 ####[facility] [address] [place] [address] Consultation Noteon 02-26-20 Consultation Note Normal [facility] Comment on above: Result Comment: Elec tronically Signed By: Chong Coe M.D\camilla\Date and Time Signed: 02/25/23 09:21 EDT Interdisciplinary Note - Michelet e Manageron 02-25-2023 Interdisciplinary Note - Business Investor Normal [facility] Comment on above: Result Comment: Elec tronically Signed By: Дмитрий GUARDADO, Alla\.br\Date and Time Signed: 02/25/23 13:11 EDT Interdisciplinary Note - Ashley n 02-25-2023 Interdisciplinary Note - OT Normal [facility] Interdisciplinary Note - PTo n 02-25-2023 Interdisciplinary Note - PT Normal [facility] Progress Note-Physicianon Progress Note-Physician Normal [facility] Comment on above: Result Comment: Elec tronically Signed By: Manav Tinajero MD\.br\Date and Time Signed: 02/25/23 21:58 EDT Progress Note-Physician Normal [facility] Comment on above: Result Comment: Elec tronically Signed By: Ramos HERRING MD\.br\Date and Time Signed: 02/25/23 11:37 EDT Auto Diffon 02-24-2023 Basophils/100 WBC (Bld) 0.5 % Normal 0.0-2.0 [facility] Comment on above: Order Comment: Order Added by Discern Expert. Performed By: #### 2 398838, 1141828, 5871049, 536724781, 79609651, 1479211 ####[facility] [address] [place] [address] Basophils/Leukocytes Auto (Bld) [Pure # fraction] 0.0 E9/L Normal 0.0-0.2 [facility] Comment on above: Order Comment: Order Added by Discern Expert. Performed By: #### 2 403115, 9569029, 1650574, 744718149, 37275060, 9741368 ####[facility] [address] [place] [address] Eosinophils/100 WBC (Bld) 0.4 % Normal 0.0-8.0 [facility] Comment on above: Order Comment: Order Added by Discern Expert. Performed By: #### 2 162731, 6880716, 2536933, 172222447, 53768064, 9776247 ####[address] [address] Eosinophils/Leukocytes Auto (Bld) [Pure # fraction] 0.0 E9/L Normal 0.0-0.5 [facility] Comment on above: Order Comment: Order Added by Discern Expert. Performed By: #### 2 682958, 6671122, 1064389, 099402701, 63339463, 4857605 ####[address] [address] Lymphocytes/100 WBC (Bld) 6.2 % Low 14.0-50.0 [facility] Comment on above: Order Comment: Order Added by Discern Expert. Performed By: #### 2 378116, 1434640, 8592105, 660230079, 12429011, 7488499 ####[address] [address] Lymphocytes/Leukocytes Auto (Bld) [Pure # fraction] 0.4 E9/L Low 1.0-4.0 [facility] Comment on above: Order Comment: Order Added by Discern Expert. Performed By: #### 2 052953, 6299889, 5349896, 611347976, 76124126, 3667194 ####[address] [address] Monocytes/100 WBC (Bld) 12.6 % Normal 4.0-14.0 [facility] Comment on above: Order Comment: Order Added by Discern Expert. Performed By: #### 2 299238, 5845689, 8961755, 226501615, 70729892, 6291645 ####[address] [address] Monocytes/Leukocytes Auto (Bld) [Pure # fraction] 0.8 E9/L Normal 0.2-1.0 [facility] Comment on above: Order Comment: Order Added by Discern Expert. Performed By: #### 2 055980, 9132137, 1353099, 519273877, 21147259, 6488089 ####[address] [place] [address] Neutrophils/100 WBC (Bld) 80.3 % High 36.0-75.0 [facility] Comment on above: Order Comment: Order Added by Discern Expert. Performed By: #### 2 627916, 2573197, 1004314, 256839669, 96455750, 8356437 ####[address] [place] [address] Neutrophils/Leukocytes Auto (Bld) [Pure # fraction] 5.4 E9/L Normal 2.0-7.5 [facility] Comment on above: Order Comment: Order Added by Discern Expert. Performed By: #### 2 760080, 7202559, 7559047, 514588180, 43950467, 4640215 ####[address] [place] [address] BMPon 02-24-2023 Anion gap [Moles/Vol] 10 mmol/L Normal 6-16 [facility] Comment on above: Performed By: #### 2 765931, 1065083, 5686621, 205663706, 84412822, 2340149 ####[facility] [address] [place] [address] Calcium [Mass/Vol] 8.1 mg/dL Low 8.9-11.1 [facility] Comment on above: Performed By: #### 2 555667, 3135331, 2335398, 314546885, 47825691, 0044458 ####[facility] [address] [place] [address] Chloride [Moles/Vol] 98 mmol/L Low 101-111 Fish [facility] Comment on above: Performed By: #### 2 725504, 2666473, 9201015, 190187237, 42706641, 8572585 ####[facility] [address] [place] [address] CO2 [Moles/Vol] 25 mmol/L Normal 21-31 [facility] Comment on above: Performed By: #### 2 374008, 5274725, 9758077, 013933619, 73164909, 0663372 ####[facility] [address] [place] [address] Creatinine [Mass/Vol] 0.6 mg/dL Normal 0.5-1.3 [facility] Comment on above: Performed By: #### 2 532752, 2910272, 8667773, 400950602, 64476230, 4268507 ####[facility] [address] [place] [address] Glucose [Mass/Vol] 120 mg/dL Normal 55-199 [facility] Comment on above: Result Comment: If t his glucose result represents a fasting glucose, interpretation should refer to the following reference range: 55-99 mg/dL Performed By: #### 2 015701, 4627716, 8721116, 149429649, 08654741, 8126510 ####[facility] [address] [place] [address] Potassium [Moles/Vol] 3.9 mmol/L Normal 3.5-5.3 [facility] Comment on above: Performed By: #### 2 450165, 8596507, 9711798, 346735102, 64597387, 3741762 ####[facility] [address] [place] [address] Sodium [Moles/Vol] 129 mmol/L Low 135-145 [facility] Comment on above: Performed By: #### 2 234942, 9357205, 3097058, 788402556, 08414048, 4798635 ####[facility] [address] [place] [address] Urea nitrogen [Mass/Vol] 16 mg/dL Normal 5-21 [facility] Comment on above: Performed By: #### 2 635446, 3656444, 0527143, 829693963, 84732821, 2839520 ####[facility] [address] [place] [address] Urea nitrogen/Creatinine [Mass ratio] 27 No Units High 10-20 [facility] Comment on above: Performed By: #### 2 142191, 2342328, 3680720, 685244257, 25238780, 3326526 ####[address] [address] CBC w/ Auto Diffon 3 Erythrocyte distribution width (RBC) [Ratio] 19.1 % High 10.9-14.2 [facility] Comment on above: Performed By: #### 2 686581, 2077607, 9592843, 876119915, 00750287, 7521946 ####[address] [address] Hematocrit (Bld) [Volume fraction] 22.3 % Low 37.7-49.0 [facility] Comment on above: Performed By: #### 2 362956, 7642519, 7136429, 318232737, 84900524, 4838203 ####[address] [address] Hemoglobin (Bld) [Mass/Vol] 7.3 g/dL Low 13.5-17.5 [facility] Comment on above: Performed By: #### 2 514473, 0994106, 6569420, 918856541, 38393990, 1113883 ####[address] [address] MCH (RBC) [Entitic mass] 27.3 pg Normal 27.0-34.0 [facility] Comment on above: Performed By: #### 2 123697, 0400909, 0926458, 154869472, 90231207, 6725395 ####[address] [address] MCHC (RBC) [Mass/Vol] 32.6 g/dL Normal 31.4-36.0 [facility] Comment on above: Performed By: #### 2 980919, 9958543, 4243520, 914670862, 16918634, 9481319 ####[address] [place] [address] MCV (RBC) [Entitic vol] 83.8 fL Normal 80.0-100.0 F [facility] Comment on above: Performed By: #### 2 758207, 1315088, 9508906, 509422582, 84441580, 4524053 ####[address] [address] Platelet mean volume (Bld) [Entitic vol] 8.8 fL Normal 6.4-10.8 [facility] Comment on above: Performed By: #### 2 836004, 7873090, 0816576, 490484751, 89463401, 6290996 ####[address] [address] Platelets (Bld) [#/Vol] 192.0 E9/L Normal 150.0-500.0 [facility] Comment on above: Performed By: #### 2 748542, 2719470, 3033748, 009176107, 76296792, 1328135 ####[address] [address] RBC (Bld) [#/Vol] 2.7 E12/L Low 4.3-5.9 [facility] Comment on above: Performed By: #### 2 062313, 1615218, 9340302, 660599204, 21821747, 2547538 ####[address] [address] WBC corrected for nucl RBC Auto (Bld) [#/Vol] 6.7 E9/L Normal 4.0-11.0 [facility] Comment on above: Performed By: #### 2 198774, 8631829, 0855787, 211812744, 19201100, 9235212 ####[address] [place] [address] CHEMISTRYOrdered By: Caity Roman on 02-24-2023 CK [Catalytic activity/Vol] 21 [iU]/d Normal 14 - 261 Int._Unit/L [facility] Remisol CHEMISTRYOrdered By: Fidel Peterson on 02-24-2023 HbA1c (Bld) [Mass fraction] 5.2 % Normal <=5.9% [facility] ChemAutoSS CKon 02-24-2023 CK [Catalytic activity/Vol] 21 Int._Unit/L Normal 14-261 [facility] Comment on above: Performed By: #### 2 780900, 2809666, 6304336, 134405730, 96963294, 3443188 ####[facility] [address] [place] [address] Capillary Glucose POCon 02-07 Glucose [Mass/Vol] 149 mg/dL High 55-99 [facility] Comment on above: Result Comment: Nuno MARIN Performed By: #### 2 [id number] ####[facility] [address] [facility] [address] Glucose [Mass/Vol] 129 mg/dL High 55-99 [facility] Comment on above: Result Comment: Nuno MARIN Performed By: #### 2 [id number] ####[facility] [address] [place] [address] Glucose [Mass/Vol] 123 mg/dL High 55-99 [facility] Comment on above: Result Comment: Nuno MARIN Performed By: #### 2 [id number] ####[facility] [address] [place] [address] Glucose [Mass/Vol] 211 mg/dL High 55-99 [facility] Comment on above: Result Comment: Nuno MARIN Performed By: #### 2 [id number] ####[facility] [address] [place] [address] UeqE7mew 02-24-2023 HbA1c (Bld) [Mass fraction] 5.2 % Normal <=5.9 [facility] Comment on above: Performed By: #### 2 633109, 1629986, 9108092, 704598043, 47398509, 9437208 ####[facility] [address] [place] [address] Interdisciplinary Note - Michelet e Manageron 02-24-2023 Interdisciplinary Note - Business Investor Normal [facility] Comment on above: Result Comment: Elec tronically Signed By: Sonia Morejon\.br\Date and Time Signed: 02/24/23 12:26 EDT Interdisciplinary Note - Nut ritionon 02-24-2023 Interdisciplinary Note - Nutrition Normal [facility] Comment on above: Result Comment: Elec tronically Signed By: Lucas MEADOWS, , Misty\.br\Date and Time Signed: 02/24/23 14:00 EDT\.br\Electronically Co-Signed By: NEVAEH WISE, Ramos\.br\Date and Time Co-Signed: 02/27/23 18:24 EDT Message from Medicareon 02-07 Message from Medicare [id number] :127 Normal [facility] Progress Note-Physicianon Progress Note-Physician Normal F [facility] Comment on above: Result Comment: Elec tronically Signed By: Ramos HERRING MD\.br\Date and Time Signed: 02/24/23 11:12 EDT UA With Cult Reflexon 2022 UA Spec Desc Catheter Normal [facility] Comment on above: Result Comment: cath . specimen Performed By: #### 1 [id number], 3632523 ####[facility] [address] [place] [address] eGFRon 02-24-2023 GFR/1.73 sq M.predicted among non-blacks MDRD (S/P/Bld) [Vol rate/Area] 100 mL/min/1.73 m2 Normal >=59 [facility] Comment on above: Order Comment: Order added by Discern Expert. Result Comment: Basket Maker alen kidney disease could be indicated at eGFR's of less than 60 mL/min/1.73m2. Kidney failure is indicated at less than 15 mL/min/1.73m2. Performed By: #### 2 079027, 6344679, 1458843, 493405070, 72400234, 0121600 ####[facility] [address] [place] [address] Auto Diffon 02-23-2023 Basophils/100 WBC (Bld) 0.8 % Normal 0.0-2.0 [facility] Comment on above: Order Comment: Order Added by Discern Expert. Performed By: #### 2 468928, 7736830, 0813718, 72544855, 56634693, 55935181, 7984570 ####[address] [place] [address] Basophils/Leukocytes Auto (Bld) [Pure # fraction] 0.1 E9/L Normal 0.0-0.2 [facility] Comment on above: Order Comment: Order Added by Discern Expert. Performed By: #### 2 233793, 9083375, 7969653, 62939989, 19952541, 00336539, 3126299 ####[address] [address] Eosinophils/100 WBC (Bld) 0.7 % Normal 0.0-8.0 [facility] Comment on above: Order Comment: Order Added by Discern Expert. Performed By: #### 2 189338, 3992024, 4691973, 95571675, 93726895, 03015098, 1907962 ####[address] [address] Eosinophils/Leukocytes Auto (Bld) [Pure # fraction] 0.0 E9/L Normal 0.0-0.5 [facility] Comment on above: Order Comment: Order Added by Discern Expert. Performed By: #### 2 318349, 6536648, 0453430, 16711407, 84485486, 14628266, 0277929 ####[address] [address] Lymphocytes/100 WBC (Bld) 4.0 % Low 14.0-50.0 [facility] Comment on above: Order Comment: Order Added by Discern Expert. Performed By: #### 2 697181, 8353230, 3888435, 30748621, 64311982, 28273890, 5121299 ####[facility] [address] [place] [address] Lymphocytes/Leukocytes Auto (Bld) [Pure # fraction] 0.3 E9/L Low 1.0-4.0 [facility] Comment on above: Order Comment: Order Added by Discern Expert. Performed By: #### 2 055711, 4499942, 0529991, 72528074, 85497362, 45153120, 6968392 ####[address] [place] [address] Monocytes/100 WBC (Bld) 13.0 % Normal 4.0-14.0 [facility] Comment on above: Order Comment: Order Added by Discern Expert. Performed By: #### 2 639925, 4543935, 2207461, 16237500, 95234402, 79059908, 5621932 ####[address] [place] [address] Monocytes/Leukocytes Auto (Bld) [Pure # fraction] 1.0 E9/L Normal 0.2-1.0 [facility] Comment on above: Order Comment: Order Added by Discern Expert. Performed By: #### 2 987460, 7816105, 5379529, 18497963, 82049282, 06587884, 4703698 ####[address] [place] [address] Neutrophils/100 WBC (Bld) 81.5 % High 36.0-75.0 [facility] Comment on above: Order Comment: Order Added by Discern Expert. Performed By: #### 2 667988, 8338200, 5576506, 93752084, 23004464, 81539720, 7344826 ####[facility] [address] [place] [address] Neutrophils/Leukocytes Auto (Bld) [Pure # fraction] 6.1 E9/L Normal 2.0-7.5 [facility] Comment on above: Order Comment: Order Added by Discern Expert. Performed By: #### 2 094079, 7611765, 3829243, 83583824, 28796137, 01550664, 9667541 ####[facility] [address] [place] [address] BMPon 02-23-2023 Creatinine [Mass/Vol] 0.7 mg/dL Normal 0.5-1.3 [facility] Comment on above: Performed By: #### 2 408142, 3589256, 6946617, 01737581, 35163622, 75359937, 8689038 ####[facility] [address] [place] [address] Urea nitrogen [Mass/Vol] 17 mg/dL Normal 5-21 [facility] Comment on above: Performed By: #### 2 716011, 5759959, 5654112, 49673085, 68290469, 06451165, 6346012 ####[facility] [address] [place] [address] Urea nitrogen/Creatinine [Mass ratio] 24 No Units High 10-20 [facility] Comment on above: Performed By: #### 2 994793, 4947960, 8362366, 55700800, 81898982, 14893698, 0055302 ####[facility] [address] [place] [address] Anion gap [Moles/Vol] 12 mmol/L Normal 6-16 [facility] Comment on above: Performed By: #### 2 510050, 3276360, 0611743, 71339520, 80996037, 09919953, 2871264 ####[facility] [address] [place] [address] Calcium [Mass/Vol] 8.3 mg/dL Low 8.9-11.1 [facility] Comment on above: Performed By: #### 2 232773, 0424836, 9490521, 40071598, 13816799, 74366436, 3015545 ####[facility] [address] [place] [address] Chloride [Moles/Vol] 94 mmol/L Low 101-111 Fish [facility] Comment on above: Performed By: #### 2 333649, 5452919, 6188608, 47611364, 42423378, 21026505, 2680925 ####[facility] [address] [place] [address] CO2 [Moles/Vol] 25 mmol/L Normal 21-31 [facility] Comment on above: Performed By: #### 2 392629, 2023431, 7947395, 39289416, 91688357, 73561615, 2406664 ####[facility] [address] [place] [address] Glucose [Mass/Vol] 128 mg/dL Normal 55-199 [facility] Comment on above: Result Comment: If t his glucose result represents a fasting glucose, interpretation should refer to the following reference range: 55-99 mg/dL Performed By: #### 2 228093, 9318772, 0075361, 38862784, 80717193, 13167720, 3013024 ####[facility] [address] [place] [address] Potassium [Moles/Vol] 4.1 mmol/L Normal 3.5-5.3 [facility] Comment on above: Performed By: #### 2 778718, 2879099, 3422615, 52202730, 32774814, 76548278, 4221216 ####[facility] [address] [place] [address] Sodium [Moles/Vol] 127 mmol/L Low 135-145 [facility] Comment on above: Performed By: #### 2 423768, 4628993, 6720804, 44875875, 47381861, 72970190, 8146553 ####[facility] [address] [place] [address] CBC w/ Auto Diffon 3 Erythrocyte distribution width (RBC) [Ratio] 19.6 % High 10.9-14.2 [facility] Comment on above: Performed By: #### 2 294430, 4215415, 9035156, 13435816, 41244714, 33830412, 7777717 ####[facility] [address] [place] [address] Hematocrit (Bld) [Volume fraction] 23.8 % Low 37.7-49.0 [facility] Comment on above: Performed By: #### 2 653946, 8593774, 0460411, 07582292, 22547969, 53059824, 0713896 ####[facility] [address] [place] [address] Hemoglobin (Bld) [Mass/Vol] 7.4 g/dL Low 13.5-17.5 [facility] Comment on above: Performed By: #### 2 615074, 4001927, 5555430, 44600289, 46714889, 82521721, 2468343 ####[facility] [address] [place] [address] MCH (RBC) [Entitic mass] 26.6 pg Low 27.0-34.0 [facility] Comment on above: Performed By: #### 2 436798, 3515959, 0391407, 82942197, 20700761, 78727742, 5677056 ####[facility] [address] [place] [address] MCHC (RBC) [Mass/Vol] 31.1 g/dL Low 31.4-36.0 [facility] Comment on above: Performed By: #### 2 480083, 6542287, 1254122, 10815741, 22981222, 13602725, 1680007 ####[facility] [address] [place] [address] MCV (RBC) [Entitic vol] 85.5 fL Normal 80.0-100.0 F [facility] Comment on above: Performed By: #### 2 190082, 1803277, 5337644, 29823298, 97894179, 14775511, 5037770 ####[facility] [address] [place] [address] Platelet mean volume (Bld) [Entitic vol] 8.3 fL Normal 6.4-10.8 [facility] Comment on above: Performed By: #### 2 930929, 9799255, 8481931, 56739377, 19318325, 63737088, 3018908 ####[facility] [address] [place] [address] Platelets (Bld) [#/Vol] 188.0 E9/L Normal 150.0-500.0 [facility] Comment on above: Performed By: #### 2 720368, 2203941, 9105866, 63150642, 24787943, 45592623, 9057238 ####[address] [address] RBC (Bld) [#/Vol] 2.8 E12/L Low 4.3-5.9 [facility] Comment on above: Performed By: #### 2 892712, 8815086, 7127973, 46071031, 84733657, 77544210, 7302999 ####[address] [place] [address] WBC corrected for nucl RBC Auto (Bld) [#/Vol] 7.4 E9/L Normal 4.0-11.0 [facility] Comment on above: Performed By: #### 2 042423, 1063876, 6418837, 64551139, 68421747, 80504023, 9675084 ####[address] [address] CHEMISTRYOrdered By: SYSTEM SYSTEM on 02-23-2023 Amphetamines [...] 6.8 g/dL Normal 6.0 - 7.8 gm/dL [facility] Remisol Troponin I.cardiac [Mass/Vol] 6.20 pg/mL Low 15.90 - 38.40 pg/mL [facility] Remisol COAGULATIONOrdered By: Elodia Camarillo on 02-23-2023 aPTT Coag (PPP) [Time] 33.4 s Normal 25.1 - 36.5 second(s) [facility] Auto Coag INR Coag (PPP) [Relative time] 1.3 {INR} Invalid Interpretation Code [facility] Auto Coag PT Coag (PPP) [Time] 14.4 s High 9.4 - 1 2.5 second(s) [facility] Auto Coag CT Head or Brain w/o Contras ton 02-23-2023 CT Head or Brain w/o Contrast Normal [facility] Capillary Glucose POCon 02-07 Glucose [Mass/Vol] 100 mg/dL High 55-99 [facility] Comment on above: Result Comment: Nuno aranda RN/ Performed By: #### 2 83075332 ####[facility] [address] [place] [address] Glucose [Mass/Vol] 168 mg/dL High 55-99 [facility] Comment on above: Result Comment: Nuno MARIN Performed By: #### 2 90559402 ####[facility] [address] [place] [address] Consent for Treatmenton 02-07 Consent for Treatment [id number]: 127 Normal [facility] ED Clinical Summaryon 2022 ED Clinical Summary Normal [facility] ED Note-Physicianon 02-24-20 ED Note-Physician Normal [facility] Comment on above: Result Comment: Elec tronically Signed By: Luz WISE, Kwasi\.br\Date and Time Signed: 02/23/23 14:17 EDT ED Patient Education Noteon 02-23-2023 ED Patient Education Note Normal [facility] ED Patient Summaryon 023 ED Patient Summary Normal [facility] Ethanolon 02-23-2023 Ethanol [Mass/Vol] mg/dL Normal <=7 [facility] Comment on above: Performed By: #### 2 804309 ####[facility] [address] [place] [address] Hep Func Panelon 02-23-2023 Albumin [Mass/Vol] 2.4 g/dL Low 3.3-5.0 [facility] Comment on above: Performed By: #### 2 391892, 9454902, 6915231, 47543203, 33792193, 45342971, 8677116 ####[facility] [address] [place] [address] Albumin/Globulin (S) [Mass conc ratio] 0.6 Low 1.1-2.2 [facility] Comment on above: Performed By: #### 2 583309, 3394529, 7640143, 61974624, 34012783, 81716885, 4089767 ####[address] [place] [address] ALP [Catalytic activity/Vol] 91 Int._Unit/L Normal 21-98 [facility] Comment on above: Performed By: #### 2 721817, 9001397, 8400148, 32885379, 25316789, 66579956, 7397527 ####[address] [address] ALT No additional P-5'-P [Catalytic activity/Vol] 27 Int._Unit/L Normal 6-46 [facility] Comment on above: Performed By: #### 2 940410, 8925704, 3974304, 44034904, 44688702, 64315240, 6867338 ####[address] [place] [address] AST [Catalytic activity/Vol] 21 Int._Unit/L Normal 5-43 [facility] Comment on above: Performed By: #### 2 380034, 8779636, 2412742, 09588854, 22572603, 25375640, 8260215 ####[facility] [address] [place] [address] Bilirubin [Mass/Vol] 0.7 mg/dL Normal 0.0-1.1 Fish er [facility] Comment on above: Performed By: #### 2 801657, 3310503, 3923193, 72668444, 36573339, 27134139, 5019731 ####[facility] [address] [place] [address] Bilirubin.direct [Mass/Vol] 0.2 mg/dL Normal 0.1-0.4 [facility] Comment on above: Performed By: #### 2 543000, 4741544, 3768478, 03518039, 08755881, 04493480, 1838484 ####[facility] [address] [place] [address] Bilirubin.indirect [Mass or moles/Vol] 0.5 mg/dL Normal 0.1-0.9 [facility] Comment on above: Performed By: #### 2 405001, 9016641, 3118777, 73764987, 02497471, 44896587, 0177327 ####[facility] [address] [place] [address] Globulin (S) [Mass/Vol] 4.4 g/dL High 1.4-4.0 F [facility] Comment on above: Performed By: #### 2 664903, 7248497, 0026688, 08469829, 15222197, 17528813, 6568865 ####[facility] [address] [place] [address] Protein [Mass/Vol] 6.8 g/dL Normal 6.0-7.8 [facility] Comment on above: Performed By: #### 2 880600, 5216557, 6107409, 35977457, 01694937, 20854398, 1738683 ####[facility] [address] [place] [address] Laboratory - Microbiology an d Antimicrobial susceptibilityOrdered By: Sabiha Ayala on 02-23-2023 Bacteria identified Cx Nom (U) No growth at 2 days. [facility] Monitor Recordon 02-23-2023 Monitor Record [id number] :127 Normal [facility] No Panel InformationOrdered By: Meaghan Jeromy on 02-23-2023 Blood Culture Charcoal No growth at 7 days. [facility] Blood Culture Charcoal No growth at 7 days. [facility] PT & PTTon 02-23-2023 aPTT Coag (PPP) [Time] 33.4 second(s) Normal 25.1-36.5 [facility] Comment on above: Result Comment: Para meter [...] the same coagulation reagent and instrumentation as [facility]. Currently there are no coagulation studies available worldwide for children to 14 days, and no normal ranges. Heparin therapeutic range (represented by Anti-Factor Xa activity of 0.2 - 0.4 U/mL) corresponds to PTT of 56.6 - 109.0 sec. Performed By: #### 2 426149, 3186099, 5647690, 36472574, 02299847, 12481324, 5663437 ####[facility] [address] [place] [address] INR Coag (PPP) [Relative time] 1.3 {INR} Invalid Interpretation Code [facility] Comment on above: Result Comment: INR results are specifically intended to assess patients stabilized on long-term Anticoagulation therapy suggested INR?s ?Less Intensive Anticoagulation? 2.0 ? 3.0Conventional Range 3.0 ? 4.5 Performed By: #### 2 710456, 1353128, 6987780, 42731528, 20304955, 30821862, 3771622 ####[facility] [address] [place] [address] PT Coag (PPP) [Time] 14.4 second(s) High 9.4-12.5 [facility] Comment on above: Result Comment: 15 d [...] the same coagulation reagent and instrumentation as [facility]. Currently there are no coagulation studies available worldwide for children to 14 days, and no normal ranges. Performed By: #### 2 656843, 7754872, 3891359, 43693054, 56277145, 16743660, 4310810 ####[facility] [address] [place] [address] Troponin 0 Hr.on 02-23-2023 Troponin I.cardiac [Mass/Vol] 6.20 pg/mL Low 15.90-38.40 [facility] Comment on above: Result Comment: The 95% CI (Confidence Interval) PPV (Positive Predictive Value) for myocardial infarction in females is 38 pg/mL, in males 51 pg/mL. The results should be used in conjunction with clinical conditions of myocardial infarction.(Access High Sensitivity Troponin I Instructions For Use, Daljit Rancho, May 2018) Performed By: #### 2 720589, 0457880, 2014528, 43402346, 16689442, 07273907, 6210126 ####[facility] [address] [place] [address] U Drug Screenon 02-23-2023 Tetrahydrocannabinol Screen method >50 ng/mL Ql (U) Positive Abnormal Negative [facility] Comment on above: Result Comment: Crit ical Result verified by repeat analysis\Critical Result UD_THC:POS Called to ANGIE JEAN AT by RAJAN HERBERT And Read Back For Confirmation at: 02/23/2023 12:38:36Negative Cutoff: <50 ng/mL Performed By: #### 2 958251 ####[facility] [address] [place] [address] Amphetamines Screen method >1000 ng/mL Ql (U) Negative Normal Negative [facility] Comment on above: Result Comment: Nega tive Cutoff: <1000 ng/mL Performed By: #### 2 318715 ####[facility] [address] [place] [address] Barbiturates Screen Ql (U) Negative Normal Negative [facility] Comment on above: Result Comment: Nega tive Cutoff: <200 ng/mL Performed By: #### 2 542283 ####[facility] [address] [place] [address] Benzodiazepines Ql (U) Negative Normal Negative [facility] Comment on above: Result Comment: Nega tive Cutoff: <200 ng/mL Performed By: #### 2 293575 ####[facility] [address] [place] [address] Cocaine Ql (U) Negative Normal Negative [facility] Comment on above: Result Comment: Nega tive Cutoff: <300 ng/mL Performed By: #### 2 750840 ####[facility] [address] [place] [address] Opiates Screen Ql (U) Negative Normal Negative Fis [facility] Comment on above: Result Comment: Nega tive Cutoff: <300 ng/mL Performed By: #### 2 061131 ####[facility] [address] [place] [place] [address] Phencyclidine Screen method >25 ng/mL Ql (U) Negative Normal Negative [facility] Comment on above: Result Comment: Nega tive Cutoff: <25 ng/mLThese drug screen results are to be used for medical (i.e., treatment) purposes only. Unconfirmed drug screening results must not be used for non-medical purposes (e.g., employment testing, legal testing). Performed By: #### 2 402282 ####[facility] [address] [place] [address] UA With Cult Reflexon 2022 Bacteria LM Ql (Urine sed) 2+ /HPF Abnormal Trace [facility] Comment on above: Performed By: #### 1 0973757, 8769868 ####[facility] [address] [place] [address] Bilirubin Ql (U) Negative Normal Negative [facility] Comment on above: Performed By: #### 1 9699620, 7175440 ####[facility] [address] [place] [address] Clarity (U) CLEAR Normal Clear [facility] Comment on above: Performed By: #### 1 7605131, 6784781 ####[facility] [address] [place] [address] Color (U) YELLOW Normal Yellow [facility] Comment on above: Performed By: #### 1 1040852, 9859224 ####[facility] [address] [place] [address] Epithelial cells.squamous LM.HPF (Urine sed) [#/Area] 0-2 Normal 0-2 [facility] Comment on above: Performed By: #### 1 4833877, 5855783 ####[facility] [address] [place] [address] Fine Granular Casts LM Ql (Urine sed) 0-3 Normal [facility] Comment on above: Performed By: #### 1 4754684, 4644703 ####[facility] [address] [place] [address] Glucose Test strip (U) [Mass/Vol] Negative Normal Negative [facility] Comment on above: Performed By: #### 1 7007603, 3361720 ####[facility] [address] [place] [address] Hemoglobin Ql (U) 2+ Abnormal Negative [facility] Comment on above: Performed By: #### 1 1121436, 0282282 ####[facility] [address] [place] [address] Ketones (U) [Mass/Vol] Negative Normal Negative [facility] Comment on above: Performed By: #### 1 5408975, 7548939 ####[facility] [address] [place] [address] [place].plasma/[place]. RBC (Bld) [Mass ratio] 0-3 Normal 0-3 [facility] Comment on above: Performed By: #### 1 0998956, 3835332 ####[facility] [address] [place] [address] Mucus Ql (Urine sed) TRACE Normal Fish [facility] Comment on above: Performed By: #### 1 5878307, 0716084 ####[address] [address] Nitrite Ql (U) Negative Normal Negative [facility] Comment on above: Performed By: #### 1 2733978, 8572704 ####[facility] [address] [place] [address] pH (U) 6.5 [pH] Invalid Interpretation Code 5.0-9.0 [facility] Comment on above: Performed By: #### 1 4142138, 5227801 ####[address] [address] Protein (U) [Mass/Vol] 2+ Abnormal Negative [facility] Comment on above: Performed By: #### 1 6941565, 0488059 ####[address] [address] Specific gravity (U) [Rel density] 1.020 Invalid Interpretation Code 1.005-1.030 [facility] Comment on above: Performed By: #### 1 7463846, 0972704 ####[facility] [address] [place] [address] Urobilinogen Qn (U) 0.2 {Mercedes'U}/dL Normal 0.0-1.0 [facility] Comment on above: Performed By: #### 1 0420842, 6276594 ####[facility] [address] [place] [address] WBC Auto Ql (U) Negative Normal Negative [facility] Comment on above: Performed By: #### 1 4614085, 3096304 ####[facility] [address] [place] [address] WBC LM.HPF (Urine sed) [#/Area] 0-5 Normal 0-5 [facility] Comment on above: Performed By: #### 1 9949230, 7342105 ####[facility] [address] [place] [address] URINALYSISOrdered By: Elodia puckett on 02-23-2023 Bacteria [...] AM) Normal Negative [facility] UA Auto SS [place].plasma/[place]. RBC (Bld) [Mass ratio] 0-3 /HPF Normal 0-3/HPF FT UA Auto SS Mucus Ql (Urine sed) Trace (02/23/23 11:47 AM) Normal FT UA Auto SS Nitrite Ql (U) Negative [...] Desc Catheter 1 (02/23/23 11:47 AM) Normal FT UA Auto SS Comment on above: Result Comment: cath . specimen Urobilinogen Qn (U) 0.8276350 {Mercedes'U}/dL Normal 0.0 - 1.0 EU/dL FT UA Auto SS WBC Auto Ql (U) Negative (02/23/23 11:47 AM) Normal Negative FT UA Auto SS WBC LM.HPF (Urine sed) [#/Area] 0-5 /HPF Normal 0-5/HPF [facility] UA Auto SS XR Chest Single Viewon 02-23 XR Chest Single View Normal [facility] eGFRon 02-23-2023 GFR/1.73 sq M.predicted among non-blacks MDRD (S/P/Bld) [Vol rate/Area] 95 mL/min/1.73 m2 Normal >=59 [facility] Comment on above: Order Comment: Order added by Discern Expert. Result Comment: Basket Maker alen kidney disease could be indicated at eGFR's of less than 60 mL/min/1.73m2. Kidney failure is indicated at less than 15 mL/min/1.73m2. Performed By: #### 2 488844, 5373798, 1393221, 62797915, 22474027, [id number], [id number] ####[facility] [address] [place] [address] 36on 02-21-2023 36 Conformation on SS# what they have on file don't match what's on the order. Ask for Yeimi or Paula, adebayo will be leaving soon. Normal [facility] Consent for PICC lineon 02-07 Consent for PICC line [id number]#1.00CD :127 [facility] Consent for Treatmenton 02-07 Consent for Treatment [id number]#1.00CD: 127 [facility] Consent for Treatment [id number]#1.00CD: 127 [facility] Consent for Treatmenton 02-07 Consent for Treatment [id number]#1.00CD: 127 [facility] Heart and Vascular Office/Cl inic Noteon 02-17-2023 Heart and Vascular Office/Clinic Note Normal [facility] Comment on above: Result Comment: Elec tronically Signed By: Vickey WISE, Erwin FOtilia\.br\Date and Time Signed: 02/17/23 10:46 EDT Physician Orderon 02-17-2023 Physician Order [id number]#1.00CD :127 [facility] Consent for PICC lineon 02-07 Consent for PICC line [id number]#1.00CD :127 [facility] Auto Diffon 02-15-2023 Basophils/100 WBC (Bld) 0.0 % Normal 0.0-2.0 F [facility] Comment on above: Order Comment: Order Added by Discern Expert. Performed By: #### 2 046584, 9603900, 80416213, 9816537, 68413876, 1576183 ####[facility] [address] [place] [address] Basophils/Leukocytes Auto (Bld) [Pure # fraction] 0.0 E9/L Normal 0.0-0.2 [facility] Comment on above: Order Comment: Order Added by Discern Expert. Performed By: #### 2 469260, 5504452, 54134241, 7737832, 80987227, 3052746 ####[address] [address] Eosinophils/100 WBC (Bld) 0.0 % Normal 0.0-8.0 [facility] Comment on above: Order Comment: Order Added by Discern Expert. Performed By: #### 2 948918, 5781913, 46733507, 0197499, 41555380, 2520207 ####[address] [address] Eosinophils/Leukocytes Auto (Bld) [Pure # fraction] 0.0 E9/L Normal 0.0-0.5 [facility] Comment on above: Order Comment: Order Added by Discern Expert. Performed By: #### 2 863370, 3011919, 93350250, 7775926, 90823835, 0001582 ####[address] [address] Lymphocytes/100 WBC (Bld) 2.4 % Low 14.0-50.0 [facility] Comment on above: Order Comment: Order Added by Discern Expert. Performed By: #### 2 961044, 2781796, 52486699, 2038688, 78352607, 6045247 ####[address] [address] Lymphocytes/Leukocytes Auto (Bld) [Pure # fraction] 0.2 E9/L Low 1.0-4.0 [facility] Comment on above: Order Comment: Order Added by Discern Expert. Performed By: #### 2 093016, 0722863, 46174883, 9433358, 82844634, 9684110 ####[address] [address] Monocytes/100 WBC (Bld) 5.7 % Normal 4.0-14.0 F [facility] Comment on above: Order Comment: Order Added by Discern Expert. Performed By: #### 2 438688, 9133395, 38599753, 4510573, 18804250, 5836529 ####[facility] [address] [place] [address] Monocytes/Leukocytes Auto (Bld) [Pure # fraction] 0.6 E9/L Normal 0.2-1.0 [facility] Comment on above: Order Comment: Order Added by Discern Expert. Performed By: #### 2 644213, 3354911, 62367170, 8049701, 78097259, 4436845 ####[address] [place] [address] Neutrophils/100 WBC (Bld) 91.9 % High 36.0-75.0 [facility] Comment on above: Order Comment: Order Added by Discern Expert. Performed By: #### 2 266742, 9507663, 70511183, 1928713, 07875708, 3534106 ####[facility] [address] [place] [address] Neutrophils/Leukocytes Auto (Bld) [Pure # fraction] 9.3 E9/L High 2.0-7.5 [facility] Comment on above: Order Comment: Order Added by Discern Expert. Performed By: #### 2 217197, 8425977, 78006364, 9434075, 52132902, 4713898 ####[address] [place] [address] CBC w/ Auto Diffon 3 Erythrocyte distribution width (RBC) [Ratio] 19.6 % High 10.9-14.2 [facility] Comment on above: Performed By: #### 2 202314, 7862780, 37712931, 0596683, 88141533, 7899933 ####[address] [place] [address] Hematocrit (Bld) [Volume fraction] 26.7 % Low 37.7-49.0 [facility] Comment on above: Performed By: #### 2 890032, 4498857, 22416815, 8889197, 04956245, 7749095 ####[facility] [address] [place] [address] Hemoglobin (Bld) [Mass/Vol] 8.4 g/dL Low 13.5-17.5 [facility] Comment on above: Performed By: #### 2 880734, 4516443, 52632247, 3606987, 30448083, 3872791 ####[facility] [address] [place] [address] MCH (RBC) [Entitic mass] 27.8 pg Normal 27.0-34.0 [facility] Comment on above: Performed By: #### 2 488700, 9545171, 64611275, 7288536, 32702174, 3427376 ####[address] MCHC (RBC) [Mass/Vol] 31.6 g/dL Normal 31.4-36.0 [facility] Comment on above: Performed By: #### 2 452921, 5973438, 17409158, 5475240, 14609684, 2050064 ####[address] [address] MCV (RBC) [Entitic vol] 87.8 fL Normal 80.0-100.0 F [facility] Comment on above: Performed By: #### 2 328849, 3446280, 67082773, 8663557, 14583120, 5590341 ####[facility] [address] [place] [address] Platelet mean volume (Bld) [Entitic vol] 8.3 fL Normal 6.4-10.8 [facility] Comment on above: Performed By: #### 2 638133, 1178526, 44381011, 7894350, 72773240, 9180642 ####[facility] [address] [place] [address] Platelets (Bld) [#/Vol] 203.0 E9/L Normal 150.0-500.0 [facility] Comment on above: Performed By: #### 2 061441, 8469694, 62567290, 5289234, 00072806, 9359969 ####[facility] [address] [place] [address] RBC (Bld) [#/Vol] 3.0 E12/L Low 4.3-5.9 [facility] Comment on above: Performed By: #### 2 326921, 5030424, 20087500, 0285967, 60879846, 3821180 ####[facility] [address] [place] [address] WBC corrected for nucl RBC Auto (Bld) [#/Vol] 10.1 E9/L Normal 4.0-11.0 [facility] Comment on above: Performed By: #### 2 925167, 8717380, 73740755, 7736021, 85786840, 7425143 ####[facility] [address] [place] [address] CHEMISTRYOrdered By: SYSTEM SYSTEM on 02-15-2023 Albumin [...] Normal >=59mL/min/1 .73 m2 FT Chem S Globulin (S) [Mass/Vol] 4.5 g/dL High 1.4 - 4.0 gm/dL FT Remisol Glucose [Mass/Vol] 166 mg/dL Normal 55 - 199 mg/dL FT Remisol Potassium [Moles/Vol] 3.9 mmol/L Normal 3.5 - 5.3 mmol/L [facility] Remisol Protein [Mass/Vol] 6.8 g/dL Normal 6.0 - 7.8 gm/dL [facility] Remisol Sodium [Moles/Vol] 128 mmol/L Low 135 - 145 mmol/L [facility] Remisol Urea nitrogen [Mass/Vol] 23 mg/dL High 5 - 21 mg/dL FT Remisol Urea nitrogen/Creatinine [Mass ratio] 38 mg/mg High 10 - 20 [facility] Remisol CKon 02-15-2023 CK [Catalytic activity/Vol] 71 Int._Unit/L Normal 14-261 [facility] Comment on above: Performed By: #### 2 460737, 6208907, 00630393, 9392721, 92692623, 5580435 ####[facility] [address] [place] [address] CMPon 02-15-2023 Albumin [Mass/Vol] 2.3 g/dL Low 3.3-5.0 [facility] Comment on above: Performed By: #### 2 053514, 9957529, 34827453, 8885706, 09516854, 8471166 ####[facility] [address] [place] [address] Albumin/Globulin (S) [Mass conc ratio] 0.5 Low 1.1-2.2 [facility] Comment on above: Performed By: #### 2 265488, 8290228, 22810004, 2266625, 76241937, 4082680 ####[facility] [address] [place] [address] ALP [Catalytic activity/Vol] 90 Int._Unit/L Normal 21-98 [facility] Comment on above: Performed By: #### 2 699333, 2763751, 72659160, 1433869, 93615447, 0160605 ####[facility] [address] [place] [address] ALT No additional P-5'-P [Catalytic activity/Vol] 31 Int._Unit/L Normal 6-46 [facility] Comment on above: Performed By: #### 2 432104, 6124453, 66143199, 5430299, 09155588, 6283843 ####[facility] [address] [place] [address] AST [Catalytic activity/Vol] 35 Int._Unit/L Normal 5-43 [facility] Comment on above: Performed By: #### 2 654248, 0774833, 26315938, 1075554, 00643909, 0248081 ####[facility] [address] [place] [address] Bilirubin [Mass/Vol] 0.6 mg/dL Normal 0.0-1.1 [facility] Comment on above: Performed By: #### 2 067210, 8258789, 83405727, 9104774, 60789289, 7041631 ####[facility] [address] [place] [address] Creatinine [Mass/Vol] 0.6 mg/dL Normal 0.5-1.3 [facility] Comment on above: Performed By: #### 2 848897, 4892592, 53503656, 6966082, 87781820, 7036107 ####[facility] [address] [place] [address] Globulin (S) [Mass/Vol] 4.5 g/dL High 1.4-4.0 F [facility] Comment on above: Performed By: #### 2 293471, 3070177, 97405341, 7964123, 43480740, 9942821 ####[facility] [address] [place] [address] Protein [Mass/Vol] 6.8 g/dL Normal 6.0-7.8 [facility] Comment on above: Performed By: #### 2 785739, 0487069, 33131376, 9381842, 28889715, 4242251 ####[facility] [address] [place] [address] Urea nitrogen [Mass/Vol] 23 mg/dL High 5-21 [facility] Comment on above: Performed By: #### 2 365783, 3947440, 29757120, 5629341, 16925671, 1594306 ####[facility] [address] [place] [address] Urea nitrogen/Creatinine [Mass ratio] 38 No Units High 10-20 [facility] Comment on above: Performed By: #### 2 942393, 4292655, 77504984, 3619337, 55599523, 5489661 ####[facility] [address] [place] [address] Anion gap [Moles/Vol] 12 mmol/L Normal 6-16 [facility] Comment on above: Performed By: #### 2 318662, 4160498, 56113584, 4921417, 16044956, 8694733 ####[facility] [address] [place] [address] Calcium [Mass/Vol] 8.4 mg/dL Low 8.9-11.1 [facility] Comment on above: Performed By: #### 2 442028, 0399364, 07201385, 9827648, 38200833, 4391853 ####[facility] [address] [place] [address] Chloride [Moles/Vol] 97 mmol/L Low 101-111 [facility] Comment on above: Performed By: #### 2 196877, 4036683, 58764698, 4540357, 26394626, 3386620 ####[facility] [address] [place] [address] CO2 [Moles/Vol] 23 mmol/L Normal 21-31 [facility] Comment on above: Performed By: #### 2 868750, 6466247, 10662797, 3214692, 46621278, 6845361 ####[facility] [address] [place] [address] Glucose [Mass/Vol] 166 mg/dL Normal 55-199 [facility] Comment on above: Result Comment: If t his glucose result represents a fasting glucose, interpretation should refer to the following reference range: 55-99 mg/dL Performed By: #### 2 729631, 1360369, 64695556, 1177665, 12924209, 3611503 ####[facility] [address] [place] [address] Potassium [Moles/Vol] 3.9 mmol/L Normal 3.5-5.3 [facility] Comment on above: Performed By: #### 2 300319, 2575861, 58641555, 1534897, 00131407, 9212176 ####[facility] [address] [place] [address] Sodium [Moles/Vol] 128 mmol/L Low 135-145 [facility] Comment on above: Performed By: #### 2 174120, 3829009, 93640073, 9916105, 45077293, 3506609 ####[facility] [address] [place] [address] COAGULATIONOrdered By: Yang Ayala on 02-15-2023 aPTT Coag (PPP) [Time] 37.7 s High 25.1 - 36.5 second(s) [facility] Auto Coag INR Coag (PPP) [Relative time] 1.5 {INR} Invalid Interpretation Code [facility] Auto Coag PT Coag (PPP) [Time] 17.2 s High 9.4 - 1 2.5 second(s) [facility] Auto Coag CTA Abd Aorto-bilat/ iliofem oral runoffon 02-15-2023 CTA Abd Aorto-bilat/ iliofemoral runoff Normal [facility] Consent for Treatmenton Consent for Treatment [id number]#1.00CD: 127 Normal [facility] Discharge Instructionson Discharge Instructions [id number]#1.00CD :127 Normal [facility] ED Clinical Summaryon 2022 ED Clinical Summary Normal [facility] ED Note-Physicianon 02-16-20 ED Note-Physician Normal [facility] Comment on above: Result Comment: Elec tronically Signed By: Brennon Cruz DO\.br\Date and Time Signed: 02/15/23 16:50 EDT ED Patient Education Noteon 02-15-2023 ED Patient Education Note Normal [facility] ED Patient Summaryon 023 ED Patient Summary Normal [facility] HEMATOLOGYOrdered By: SYSTEM SYSTEM on 02-15-2023 Basophils/100 [...] [facility] HemeAutoSS Outside Labson 02-15-2023 Outside Labs [id number]#1.00CD :127 Normal [facility] Outside Radiologyon 02-16-20 Outside Radiology [id number]#1.00CD :127 Normal [facility] PT & PTTon 02-15-2023 aPTT Coag (PPP) [Time] 37.7 second(s) High 25.1-36.5 [facility] Comment on above: Result Comment: Para meter [...] the same coagulation reagent and instrumentation as [facility]. Currently there are no coagulation studies available worldwide for children to 14 days, and no normal ranges. Heparin therapeutic range (represented by Anti-Factor Xa activity of 0.2 - 0.4 U/mL) corresponds to PTT of 56.6 - 109.0 sec. Performed By: #### 2 539983, 3858520, 27803445, 5645583, 35386257, 4566636 ####[facility] [address] [place] [address] INR Coag (PPP) [Relative time] 1.5 {INR} Invalid Interpretation Code [facility] Comment on above: Result Comment: INR results are specifically intended to assess patients stabilized on long-term Anticoagulation therapy suggested INR?s ?Less Intensive Anticoagulation? 2.0 ? 3.0Conventional Range 3.0 ? 4.5 Performed By: #### 2 816947, 2029436, 01609444, 6805672, 74679788, 8615528 ####[facility] [address] [place] [address] PT Coag (PPP) [Time] 17.2 second(s) High 9.4-12.5 [facility] Comment on above: Result Comment: 15 d [...] the same coagulation reagent and instrumentation as [facility]. Currently there are no coagulation studies available worldwide for children to 14 days, and no normal ranges. Performed By: #### 2 386605, 0895872, 66102359, 7574774, 24758887, 8077493 ####[facility] [address] [place] [address] Physician Orderon 02-15-2023 Physician Order [id number]#1.00CD :127 Normal [facility] Physician Order [id number]#1.00CD :127 Normal [facility] eGFRon 02-15-2023 GFR/1.73 sq M.predicted among non-blacks MDRD (S/P/Bld) [Vol rate/Area] 100 mL/min/1.73 m2 Normal >=59 [facility] Comment on above: Order Comment: Order added by Discern Expert. Result Comment: Basket Maker alen kidney disease could be indicated at eGFR's of less than 60 mL/min/1.73m2. Kidney failure is indicated at less than 15 mL/min/1.73m2. Performed By: #### 2 273256, 5595973, 24392396, 4685749, 31744935, 4822875 ####[facility] [address] [place] [address] Outside Recordson 02-14-2023 Outside Records [id number]#1.00CD: 127 Normal [facility] Outside Records [id number]#1.00CD: 127 Normal [facility] Physician Orderon 02-14-2023 Physician Order [id number]#1.00CD: 127 Normal [facility] Consent for Treatmenton Consent for Treatment [id number]#1.00CD: 127 Normal [facility] Heart and Vascular Office/Cl inic Noteon 02-10-2023 Heart and Vascular Office/Clinic Note Normal [facility] Comment on above: Result Comment: Elec tronically Signed By: Vickey WISE, Erwin FOtilia\.br\Date and Time Signed: 02/10/23 12:32 EDT CBC W MANUAL DIFFon 02-10-20 23 ANISOCYTOSIS 1+ Normal [facility] Comment on above: Performed By: #### C ESTHELA #### [facility] [address] [address] [address] Joselyn Coffey ATYPICAL LYMPH # Normal [facility] Comment on above: Performed By: #### C DANNYMAN #### [facility] [address] [address] [address] Joselyn Coffey ATYPICAL LYMPH % Normal [facility] Comment on above: Performed By: #### C BCMAN #### [facility] [address] [address] [address] Joselyn MARMOLEJO # Normal 0.0-0.3 [facility] Comment on above: Performed By: #### C BCMAN #### [facility] [address] [address] [address] Joselyn Coffey BAND % Normal 0-5 [facility] Comment on above: Performed By: #### C DANNYMAN #### [facility] [address] [address] [address] Joselyn Coffey BASOM # 0.00 103/ul Normal 0.00-0.10 [facility] Comment on above: Performed By: #### C BCMAN #### [facility] [address] [place] [address] Dr. Joselyn Coffey BASOM % 0.0 % Critically low 0.2-2.0 [facility] Comment on above: Performed By: #### C BCMAN #### [facility] [address] [place] [address] Dr. Joselyn Coffey BLAST # Normal [facility] Comment on above: Performed By: #### C BCDEV #### [facility] [address] [place] [address] Dr. Joselyn Coffey BLAST % Normal [facility] Comment on above: Performed By: #### C ESTHELA #### [facility] [address] [place] [address] Dr. Joselyn Coffey CORRECTED WBC Normal 4.0-11.0 [facility] Comment on above: Performed By: #### C ESTHELA #### [facility] [address] [place] [address] Dr. Joselyn Coffey EOS # 0.00 103/ul Normal 0.00-0.70 [facility] Comment on above: Performed By: #### C ESTHELA #### [facility] [address] [place] [address] Dr. Joselyn Coffey EOS% 0.0 % Critically low 0.9-7.0 [facility] Comment on above: Performed By: #### C BCDEV #### [facility] [address] [place] [address] Dr. Joselyn Coffey HCT 26.7 % Critically low 42.0-54.0 [facility] Comment on above: Performed By: #### C BCDEV #### [facility] [address] [place] [address] Dr. Joselyn Coffey HGB 8.3 g/dl Critically low 14.0-18.0 [facility] Comment on above: Performed By: #### C BCDEV #### [facility] [address] [place] [address] Dr. Joselyn Coffey HYPOCHROMASIA 2+ Normal [facility] Comment on above: Performed By: #### Sammy PROCTOR #### [facility] [address] [place] [address] Dr. Joselyn Coffey LYMPHM # 0.17 103/ul Critically low 1.20-3.80 [facility] Comment on above: Performed By: #### Samym PROCTOR #### [facility] [address] [place] [address] Dr. Joselyn Coffey LYMPHM% 3.0 % Critically low 20.5-60.0 [facility] Comment on above: Performed By: #### Sammy PROCTOR #### [facility] [address] [place] [address] Dr. Joselyn Coffey MCH 28.3 pg Normal 25.9-34.0 [facility] Comment on above: Performed By: #### Sammy PROCTOR #### [facility] [address] [place] [address] Dr. Joselyn Coffey MCHC 31.1 g/dl Normal 29.9-35.2 [facility] Comment on above: Performed By: #### Sammy PROCTOR #### [facility] [address] [place] [address] Dr. Joselyn Coffey MCV 91.1 fL Normal 80.0-94.0 [facility] Comment on above: Performed By: #### Sammy PROCTOR #### [facility] [address] [place] [address] Dr. Joselyn Coffey METAMYELOCYTE # Normal [facility] Comment on above: Performed By: #### Sammy PROCTOR #### [facility] [address] [place] [address] Dr. Joselyn Coffey METAMYELOCYTE % Normal [facility] Comment on above: Performed By: #### Sammy PROCTOR #### [facility] [address] [place] [address] Dr. Joselyn Coffey MONOM# 0.46 103/ul Normal 0.30-0.80 [facility] Comment on above: Performed By: #### Sammy PROCTOR #### [facility] [address] [address] [address] Joselyn Coffey MONOM% 8.0 % Normal 1.7-12.0 [facility] Comment on above: Performed By: #### C ESTHELA #### [facility] [address] [address] [address] Joselyn Coffey MPV 11.6 fL Normal 9.5-13.5 [facility] Comment on above: Performed By: #### C ESTHELA #### [facility] [address] [place] [address] Dr. Joselyn Coffey MYELOCYTE # Normal [facility] Comment on above: Performed By: #### C ESTHELA #### [facility] [address] [place] [address] Dr. Joselyn Coffey MYELOCYTE % Normal [facility] Comment on above: Performed By: #### C ESTHELA #### [facility] [address] [place] [address] Dr. Joselyn Coffey NRBC Normal [facility] Comment on above: Performed By: #### C ESTHELA #### [facility] [address] [place] [address] Dr. Joselyn Coffey PLT 161 103/ul Normal 150-450 [facility] Comment on above: Performed By: #### C ESTHELA #### [facility] [address] [place] [address] Dr. Joselyn Coffey RBC 2.93 106/ul Critically low 4.70-6.10 [facility] Comment on above: Performed By: #### C ESTHELA #### [facility] [address] [place] [address] Dr. Joselyn Coffey RDW 18.8 % Critically high 11.0-15.0 [facility] Comment on above: Performed By: #### C ESTHELA #### [facility] [address] [place] [address] Dr. Joselyn Coffey SEG # 5.16 103/ul Normal 1.40-6.50 [facility] Comment on above: Performed By: #### C ESTHELA #### [facility] [address] [place] [address] Dr. Joselyn Coffey SEG % 89.0 % Critically high 43.0-75.0 [facility] Comment on above: Performed By: #### C DANNYMAN #### [facility] [address] [place] [address] Dr. Joselyn Coffey WBC 5.8 103/ul Normal 4.0-11.0 [facility] Comment on above: Performed By: #### C ESTHELA #### [facility] [address] [place] [address] Dr. Joselyn Coffey PROF CHEM 8 (BAS METB)on Anion gap [Moles/Vol] 8.3 mmol/L Normal [facility] Comment on above: Performed By: #### B MP #### [facility] [address] [place] [address] Dr. Joselyn Coffey Calcium [Mass/Vol] 8.3 mg/dL Critically low 8.5-10.1 [facility] Comment on above: Performed By: #### B MP #### [facility] [address] [place] [address] Dr. Joselyn Coffey Chloride [Moles/Vol] 101 mmol/L Normal 98-107 [facility] Comment on above: Performed By: #### B MP #### [facility] [address] [place] [address] Dr. Joselyn Coffey CO2 [Moles/Vol] 27.7 mmol/L Normal 21.0-32.0 [facility] Comment on above: Performed By: #### B MP #### [facility] [address] [place] [address] Dr. Joselyn Coffey Creatinine [Mass/Vol] 0.60 mg/dL Critically low 0.70-1.30 [facility] Comment on above: Performed By: #### B MP #### [facility] [address] [place] [address] Dr. Joselyn Coffey EGFR-AF BULGARIAN >60 Normal >=60 [facility] Comment on above: Performed By: #### B MP #### [facility] [address] [place], [place] [address] Dr. Joselyn Coffey EGFR-NON AF BULGARIAN >60 Normal >=60 [facility] Comment on above: Performed By: #### B MP #### [facility] [address] [address] [address] Joselyn Coffey Glucose [Mass/Vol] 188 mg/dL Critically high 74-[address] [facility] Comment on above: Performed By: #### B MP #### [facility] [address] [address] [address] Joselyn Coffey Potassium [Moles/Vol] 4.0 mmol/L Normal 3.5-5.1 [facility] Comment on above: Performed By: #### B MP #### [facility] [address] [address] [address] Joselyn Coffey Sodium [Moles/Vol] 133 mmol/L Critically low 136-145 Th [facility] Comment on above: Performed By: #### B MP #### [facility] [address] [place] [address] Dr. Joselyn Coffey Urea nitrogen [Mass/Vol] 13.0 mg/dL Normal 7.0-18.0 [facility] Comment on above: Performed By: #### B MP #### [facility] [address] [address] [address] Joselyn Coffey Urea nitrogen/Creatinine [Mass ratio] 21.7 mg/mg Normal [facility] Comment on above: Performed By: #### B MP #### [facility] [address] [address] [address] Joselyn Coffey PROTIMEon 02-09-2023 INR Coag (PPP) [Relative time] 1.12 {INR} Normal [facility] Comment on above: Performed By: #### C ESTHELA #### [facility] [address] [place] [address] Dr. Joselyn Coffey INR GUIDELINES SEE BELOW Normal [facility] Comment on above: Result Comment: SNOW RED INR: 2.0 - 3.0 CONDITIONS NOT LISTED BELOW 2.5 - 3.5 FOR PROSTHETIC HEART VALVE REPLACEMENT 2.5 - 3.5 RECURRENT THROMBOSIS Performed By: #### C ESTHELA #### [facility] [address] [address] [address] Joselyn Coffey PT Coag (PPP) [Time] 11.8 s Critically high 9.0-11.6 [facility] Comment on above: Performed By: #### C BCMAN #### [facility] [address] [address] [address] Joselyn Coffey PTTon 02-09-2023 aPTT Coag (Bld) [Time] 37.3 s Critically high 22.3-36. 2 [facility] Comment on above: Performed By: #### C BCMAN #### [facility] [address] [place] [address] Dr. Joselyn Coffey US ARTERY LEG RTon [...] by: MARIO CULLEN Date: 2023-02-09 14:17 Normal [facility] XR CHEST 1 Von 02-09-2023 XR CHEST 1 V EXAM: XR CHEST 1 V HISTORY: Asthenia COMPARISON: 04/04/2021 TECHNIQUE: Single view of the chest FINDINGS: Heart size normal. No focal consolidation, pleural effusion, pulmonary congestion or pneumothorax. Sternotomy wires. Right-sided central line terminating in the lower SVC region. IMPRESSION: No acute findings. Electronically authenticated by: DONALD LIMA Date: 2023-02-09 14:18 Normal [facility] 30on 02-03-2023 30 Normal [facility] 30 The patient is Moderately Stable - Low risk of patient condition declining or worsening The patient's goals for the shift include comfort The clinical goals for the shift include sleep Normal [facility] BASIC METABOLIC PANELon 04-2 Anion gap [Moles/Vol] 8 mmol/L Normal 7-20 [facility] Comment on above: Performed By: #### L [id number] ####[facility] ([facility])[address] [place] [address] Calcium [Mass/Vol] 7.3 mg/dL Low 8.6-10.3 [facility] Comment on above: Performed By: #### L [id number] ####[facility] ([facility])[address] [place] [address] Chloride [Moles/Vol] 104 mmol/L Normal 98-[address] [facility] Comment on above: Performed By: #### L [id number] ####[facility] ([facility])[address] [place] [address] CO2 [Moles/Vol] 25 mmol/L Normal 21-31 [facility] Comment on above: Performed By: #### L [id number] ####[facility] ([facility])[address] [place] [address] Creatinine [Mass/Vol] 0.48 mg/dL Low 0.70-1.30 [facility] Comment on above: Performed By: #### L [id number] ####[facility] ([facility])[address] [place] [address] GLOMERULAR FILTRATION RATE ML/MIN/1.73 SQ M.PREDICTED 107.0 mL/min/1.73m*2 Normal >60.0 [facility] Comment on above: Result Comment: [facility]???s estimated glomerular filtration rate (eGFR) will [...] of individuals. Performed By: #### L [id number] ####[facility] ([facility])[address] [place] [address] Glucose [Mass/Vol] 103 mg/dL High 70-100 [facility] Comment on above: Performed By: #### L [id number] ####[facility] ([facility])[address] [place] [address] Potassium [Moles/Vol] 3.3 mmol/L Low 3.5-5.1 [facility] Comment on above: Performed By: #### L [id number] ####[facility] ([facility])[address] [place] [address] Sodium [Moles/Vol] 134 mmol/L Low 136-145 [facility] Comment on above: Performed By: #### L [id number] ####[facility] ([facility])[address] [place] [address] Urea nitrogen [Mass/Vol] 8 mg/dL Normal 7-25 [facility] Comment on above: Performed By: #### L [id number] ####[facility] ([facility])[address] [place] [address] UREA NITROGEN/CREATININE (MASS RATIO) IN SER/PLAS 16.7 Normal [facility] Comment on above: Performed By: #### L [id number] ####[facility] ([facility])[address] [place] [address] CBCon 02-03-2023 Erythrocyte distribution width (RBC) [Ratio] 17.3 % High 11.5-15.0 [facility] Comment on above: Performed By: #### L [id number] ####[facility] ([facility])[address] [place] [address] ERYTHROCYTE MEAN CORPUSCULAR HEMOGLOBIN CONCENTRATION (G/DL) BY AUTOMATED 32.4 g/dL Normal 32.0-35.0 [facility] Comment on above: Performed By: #### L [id number] ####[facility] ([facility])[address] [place] [address] Hematocrit (Bld) [Volume fraction] 25.0 % Low 39.0-55.0 [facility] Comment on above: Performed By: #### L [id number] ####[facility] ([facility])[address] [place] [address] Hemoglobin (Bld) [Mass/Vol] 8.1 g/dL Low 13.0-17.0 [facility] Comment on above: Performed By: #### L [id number] ####[facility] ([facility])[address] [place] [address] IMMATURE PLATELET FRACTION % 9.6 % High 0.8-6.3 [facility] Comment on above: Performed By: #### L [id number] ####[facility] ([facility])[address] [place] [address] MCH (RBC) [Entitic mass] 28.9 pg Normal 27.0-33.0 [facility] Comment on above: Performed By: #### L [id number] ####[facility] ([facility])[address] [place] [address] MCV (RBC) [Entitic vol] 89.3 fL Normal 82.0-98.0 [facility] Comment on above: Performed By: #### L [id number] ####[facility] ([facility])[address] [place] [address] PLATELETS (10*3/UL) IN BLOOD AUTOMATED COUNT 91 10*3/uL Low 150-400 [facility] Comment on above: Performed By: #### L [id number] ####[facility] ([facility])[address] [place] [address] RBC (Bld) [#/Vol] 2.80 10*6/uL Low 4.20-5.70 [facility] Comment on above: Performed By: #### L [id number] ####[facility] ([facility])[address] [place] [address] WBC (Bld) [#/Vol] 4.44 10*3/uL Normal 4.00-10.60 [facility] Comment on above: Performed By: #### L [id number] ####[facility] ([facility])[address] [place] [address] DSon 02-03-2023 DS [facility] PHOSPHORUSon 02-03-2023 Magnesium [Mass/Vol] 2.3 mg/dL Low 2.5-5.[address] [facility] Comment on above: Performed By: #### L [id number] ####[facility] ([facility])[address] [place] [address] 30on 02-02-2023 30 [facility] BASIC METABOLIC PANELon 01-09 Anion gap [Moles/Vol] 10 mmol/L Normal 7-20 [facility] Comment on above: Performed By: #### L [id number] ####[facility] ([facility])[address] [place] [address] Calcium [Mass/Vol] 7.4 mg/dL Low 8.6-10.3 [facility] Comment on above: Performed By: #### L [id number] ####[facility] ([facility])[address] [place] [address] Chloride [Moles/Vol] 106 mmol/L Normal 98-[address] [facility] Comment on above: Performed By: #### L [id number] ####[facility] ([facility])[address] [place] [address] CO2 [Moles/Vol] 22 mmol/L Normal 21-31 [facility] Comment on above: Performed By: #### L [id number] ####[facility] ([facility])[address] [place] [address] Creatinine [Mass/Vol] 0.60 mg/dL Low 0.70-1.30 [facility] Comment on above: Performed By: #### L [id number] ####[facility] ([facility])[address] [place] [address] GLOMERULAR FILTRATION RATE ML/MIN/1.73 SQ M.PREDICTED 100.0 mL/min/1.73m*2 Normal >60.0 [facility] Comment on above: Result Comment: [facility]???s estimated glomerular filtration rate (eGFR) will [...] of individuals. Performed By: #### L [id number] ####[facility] ([facility])[address] [facility] [place] [address] Glucose [Mass/Vol] 105 mg/dL High 70-100 [facility] Comment on above: Performed By: #### L [id number] ####[facility] ([facility])[address] [facility] [place] [address] Potassium [Moles/Vol] 3.9 mmol/L Normal 3.5-5.1 [facility] Comment on above: Performed By: #### L [id number] ####[facility] ([facility])[address] [place] [address] Sodium [Moles/Vol] 134 mmol/L Low 136-145 [facility] Comment on above: Performed By: #### L [id number] ####[facility] ([facility])[address] [facility] [place] [address] Urea nitrogen [Mass/Vol] 9 mg/dL Normal 7-25 [facility] Comment on above: Performed By: #### L [id number] ####[facility] ([facility])[address] [place] [facility] [place] [address] UREA NITROGEN/CREATININE (MASS RATIO) IN SER/PLAS 15.0 Normal [facility] Comment on above: Performed By: #### L [id number] ####[facility] ([facility])[address] [place] [address] CBCon 02-02-2023 Erythrocyte distribution width (RBC) [Ratio] 16.9 % High 11.5-15.0 [facility] Comment on above: Performed By: #### L [id number] ####[facility] ([facility])[address] [place] [address] ERYTHROCYTE MEAN CORPUSCULAR HEMOGLOBIN CONCENTRATION (G/DL) BY AUTOMATED 31.5 g/dL Low 32.0-35.0 [facility] Comment on above: Performed By: #### L [id number] ####[facility] ([facility])[address] [place] [address] Hematocrit (Bld) [Volume fraction] 31.7 % Low 39.0-55.0 [facility] Comment on above: Performed By: #### L [id number] ####[facility] ([facility])[address] [place] [address] Hemoglobin (Bld) [Mass/Vol] 10.0 g/dL Low 13.0-17.0 [facility] Comment on above: Performed By: #### L [id number] ####[facility] ([facility])[address] [place] [address] MCH (RBC) [Entitic mass] 27.9 pg Normal 27.0-33.0 [facility] Comment on above: Performed By: #### L [id number] ####[facility] ([facility])[address] [place] [address] MCV (RBC) [Entitic vol] 88.3 fL Normal 82.0-98.0 [facility] Comment on above: Performed By: #### L [id number] ####[facility] ([facility])[address] [place] [address] PLATELETS (10*3/UL) IN BLOOD AUTOMATED COUNT 124 10*3/uL Low 150-400 [facility] Comment on above: Performed By: #### L [id number] ####[facility] ([facility])[address] [place] [address] RBC (Bld) [#/Vol] 3.59 10*6/uL Low 4.20-5.70 [facility] Comment on above: Performed By: #### L [id number] ####[facility] ([facility])[address] [place] [address] WBC (Bld) [#/Vol] 8.67 10*3/uL Normal 4.00-10.60 [facility] Comment on above: Performed By: #### L [id number] ####[facility] ([facility])[address] [place] [address] HEPARIN LEVELon 02-02-2023 HEPARIN UNFRACTIONATED (U/ML) IN PPP BY CHROMOGENIC METHOD 0.48 IU/mL Normal 0.3-0.7 [facility] Comment on above: Result Comment: Masha roxaban and Apixaban will interfere with the anti Xa assay used to monitor UFH and LMWH. Performed By: #### L [id number] ####[facility] ([facility])[address] [place] [address] HEPARIN UNFRACTIONATED (U/ML) IN PPP BY CHROMOGENIC METHOD 0.38 IU/mL Normal 0.3-0.7 [facility] Comment on above: Result Comment: Ho [place]us roxaban and Apixaban will interfere with the anti Xa assay used to monitor UFH and LMWH. Performed By: #### L [id number] ####[facility] ([facility])[address] [place] [address] HEPARIN UNFRACTIONATED (U/ML) IN PPP BY CHROMOGENIC METHOD 0.28 IU/mL Low 0.3-0.7 [facility] Comment on above: Order Comment: Check anti-Xa level every 6 hours while on heparin infusion, or per protocol. Result Comment: Masha roxaban and Apixaban will interfere with the anti Xa assay used to monitor UFH and LMWH. Performed By: #### L [id number] ####[facility] ([facility])[address] [place] [address] MAGNESIUMon 02-02-2023 Magnesium [Mass/Vol] 1.9 mg/dL Normal 1.9-2.[address] [facility] Comment on above: Performed By: #### L [id number] ####[facility] ([facility])[address] [place] [address] PHOSPHORUSon 02-02-2023 Magnesium [Mass/Vol] 3.2 mg/dL Normal 2.5-5.[address] [facility] Comment on above: Performed By: #### L [id number] ####[facility] ([facility])[address] [place] [address] APTTon 02-01-2023 ACTIVATED PARTIAL THROMBOPLASTIN TIME IN PPP BY COAGULATION ASSAY 57.8 Seconds High 25.0-35.0 [facility] Comment on above: Order Comment: Basel ine aPTT before initiating heparin infusion. Result Comment: Clin ical significance of the APTT is questionable in the presence of heparin. Performed By: #### L [id number] ####[facility] ([facility])[address] [place] [address] BASIC METABOLIC PANELon 01-09 Anion gap [Moles/Vol] 9 mmol/L Normal 7-20 [facility] Comment on above: Performed By: #### L [id number] ####[facility] ([facility])[address] [place] [address] Calcium [Mass/Vol] 7.5 mg/dL Low 8.6-10.3 [facility] Comment on above: Performed By: #### L [id number] ####[facility] ([facility])[address] [place] [address] Chloride [Moles/Vol] 107 mmol/L Normal 98-[address] [facility] Comment on above: Performed By: #### L [id number] ####[facility] ([facility])[address] [place] [address] CO2 [Moles/Vol] 20 mmol/L Low 21-31 [facility] Comment on above: Performed By: #### L [id number] ####[facility] ([facility])[address] [place] [address] Creatinine [Mass/Vol] 0.56 mg/dL Low 0.70-1.30 [facility] Comment on above: Performed By: #### L [id number] ####[facility] ([facility])[address] [place] [address] GLOMERULAR FILTRATION RATE ML/MIN/1.73 SQ M.PREDICTED 102.2 mL/min/1.73m*2 Normal >60.0 [facility] Comment on above: Result Comment: [facility]???s estimated glomerular filtration rate (eGFR) will [...] of individuals. Performed By: #### L [id number] ####[facility] ([facility])[address] [place] [address] Glucose [Mass/Vol] 84 mg/dL Normal 70-100 [facility] Comment on above: Performed By: #### L [id number] ####[facility] ([facility])[address] [place] [address] Potassium [Moles/Vol] 3.4 mmol/L Low 3.5-5.1 [facility] Comment on above: Performed By: #### L [id number] ####[facility] ([facility])[address] [place] [address] Sodium [Moles/Vol] 133 mmol/L Low 136-145 [facility] Comment on above: Performed By: #### L [id number] ####[facility] ([facility])[address] [place] [address] Urea nitrogen [Mass/Vol] 9 mg/dL Normal 7-25 [facility] Comment on above: Performed By: #### L [id number] ####[facility] ([facility])[address] [place] [address] UREA NITROGEN/CREATININE (MASS RATIO) IN SER/PLAS 16.1 Normal [facility] Comment on above: Performed By: #### L [id number] ####[facility] ([facility])[address] [place] [address] BLOOD CULTUREon 02-01-2023 Bacteria identified Cx Nom (Bld) No growth at 5 days Normal [facility] Comment on above: Order Comment: From a different site than #1. Performed By: #### L [id number] ####[facility] ([facility])[address] [place] [address] CBCon 02-01-2023 Erythrocyte distribution width (RBC) [Ratio] 16.3 % High 11.5-15.0 [facility] Comment on above: Performed By: #### L [id number] ####[facility] ([facility])[address] [place] [address] ERYTHROCYTE MEAN CORPUSCULAR HEMOGLOBIN CONCENTRATION (G/DL) BY AUTOMATED 32.6 g/dL Normal 32.0-35.0 [facility] Comment on above: Performed By: #### L [id number] ####[facility] ([facility])[address] [place] [address] Hematocrit (Bld) [Volume fraction] 25.8 % Low 39.0-55.0 [facility] Comment on above: Performed By: #### L [id number] ####[facility] ([facility])[address] [place] [address] Hemoglobin (Bld) [Mass/Vol] 8.4 g/dL Low 13.0-17.0 [facility] Comment on above: Performed By: #### L [id number] ####[facility] ([facility])[address] [place] [address] IMMATURE PLATELET FRACTION % 10.2 % High 0.8-6.3 [facility] Comment on above: Performed By: #### L [id number] ####[facility] ([facility])[address] [place] [address] MCH (RBC) [Entitic mass] 28.3 pg Normal 27.0-33.0 [facility] Comment on above: Performed By: #### L [id number] ####[facility] ([facility])[address] [place] [address] MCV (RBC) [Entitic vol] 86.9 fL Normal 82.0-98.0 [facility] Comment on above: Performed By: #### L [id number] ####[facility] ([facility])[address] [place] [address] PLATELETS (10*3/UL) IN BLOOD AUTOMATED COUNT 89 10*3/uL Low 150-400 [facility] Comment on above: Result Comment: P=85 , 1D Performed By: #### L [id number] ####[facility] ([facility])[address] [place] [address] RBC (Bld) [#/Vol] 2.97 10*6/uL Low 4.20-5.70 [facility] Comment on above: Performed By: #### L [id number] ####[facility] ([facility])[place] [address] WBC (Bld) [#/Vol] 5.04 10*3/uL Normal 4.00-10.60 [facility] Comment on above: Performed By: #### L [id number] ####[facility] ([facility])[address] [place] [address] CKon 02-01-2023 CREATINE KINASE (U/L) IN SER/PLAS 36.0 U/L Normal 30.0-223.0 [facility] Comment on above: Performed By: #### L [id number] ####[facility] ([facility])[address] [place] [address] HEPARIN LEVELon 02-01-2023 HEPARIN UNFRACTIONATED (U/ML) IN PPP BY CHROMOGENIC METHOD 0.16 IU/mL Invalid Interpretation Code 0.3-0.7 [facility] Comment on above: Result Comment: Masha roxaban and Apixaban will interfere with the anti Xa assay used to monitor UFH and LMWH. Performed By: #### L [id number] ####[facility] ([facility])[address] [place] [address] MAGNESIUMon 02-01-2023 Magnesium [Mass/Vol] 1.7 mg/dL Low 1.9-2.[address] [facility] Comment on above: Performed By: #### L [id number] ####[facility] ([facility])[address] [place] [address] PHOSPHORUSon 02-01-2023 Magnesium [Mass/Vol] 2.2 mg/dL Low 2.5-5.[address] [facility] Comment on above: Performed By: #### L [id number] ####[facility] ([facility])[address] [place] [address] POCT GLUCOSE METER UNSOLICIT ED RESULTSon 02-01-2023 Glucose [Mass/Vol] 119 mg/dL High 70-105 [facility] Comment on above: Result Comment: amur tad Performed By: #### L [id number] ####[facility] ([facility])[address] [place] [address] Glucose [Mass/Vol] 125 mg/dL High 70-105 [facility] Comment on above: Result Comment: rbar ero Performed By: #### L [id number] ####[facility] ([facility])[address] [place] [address] Glucose [Mass/Vol] 102 mg/dL Normal 70-105 [facility] Comment on above: Result Comment: [id number] Performed By: #### L [id number] ####[facility] ([facility])[address] [place] [address] 30on 01-31-2023 30 4/24- POD2 groin wou nd exploration, electrolyte replacement today, had small drop in hgb to 7.2, 1 U of PRBC to be transfused, [place] in place on groin. has ptot orders, awaiting their recs, vanc and zosyn for infx coverage, possible tx out of icu today. CB Normal [facility] BASIC METABOLIC PANELon 04-2 Anion gap [Moles/Vol] 7 mmol/L Normal 7-20 [facility] Comment on above: Performed By: #### L [id number] ####[facility] ([facility])[address] [place] [address] Calcium [Mass/Vol] 7.1 mg/dL Low 8.6-10.3 [facility] Comment on above: Performed By: #### L [id number] ####[facility] ([facility])[address] [place] [address] Chloride [Moles/Vol] 109 mmol/L High 98-[address] [facility] Comment on above: Performed By: #### L [id number] ####[facility] ([facility])[address] [place] [address] CO2 [Moles/Vol] 22 mmol/L Normal 21-31 [facility] Comment on above: Performed By: #### L [id number] ####[facility] [facility] ([facility])[address] [place] [place] [address] Creatinine [Mass/Vol] 0.56 mg/dL Low 0.70-1.30 [facility] Comment on above: Performed By: #### L [id number] ####[facility] ([facility])[address] [place] [address] GLOMERULAR FILTRATION RATE ML/MIN/1.73 SQ M.PREDICTED 102.2 mL/min/1.73m*2 Normal >60.0 [facility] Comment on above: Result Comment: [facility]???s estimated glomerular filtration rate (eGFR) will [...] of individuals. Performed By: #### L [id number] ####[facility] ([facility])[address] [place] [address] Glucose [Mass/Vol] 100 mg/dL Normal 70-100 [facility] Comment on above: Performed By: #### L [id number] ####[facility] ([facility])[address] [place] [address] Potassium [Moles/Vol] 3.3 mmol/L Low 3.5-5.1 [facility] Comment on above: Performed By: #### L [id number] ####[facility] ([facility])[address] [place] [address] Sodium [Moles/Vol] 135 mmol/L Low 136-145 [facility] Comment on above: Performed By: #### L [id number] ####[facility] ([facility])[address] [place] [address] Urea nitrogen [Mass/Vol] 8 mg/dL Normal 7-25 [facility] Comment on above: Performed By: #### L [id number] ####[facility] ([facility])[address] [place] [address] UREA NITROGEN/CREATININE (MASS RATIO) IN SER/PLAS 14.3 Normal [facility] Comment on above: Performed By: #### L [id number] ####[facility] ([facility])[address] [place] [address] CBCon 01-31-2023 Erythrocyte distribution width (RBC) [Ratio] 16.4 % High 11.5-15.0 [facility] Comment on above: Performed By: #### L [id number] ####[facility] ([facility])[address] [place] [address] ERYTHROCYTE MEAN CORPUSCULAR HEMOGLOBIN CONCENTRATION (G/DL) BY AUTOMATED 32.4 g/dL Normal 32.0-35.0 [facility] Comment on above: Performed By: #### L [id number] ####[facility] ([facility])[address] [place] [address] Hematocrit (Bld) [Volume fraction] 22.2 % Low 39.0-55.0 [facility] Comment on above: Performed By: #### L [id number] ####[facility] ([facility])[address] [place] [address] Hemoglobin (Bld) [Mass/Vol] 7.2 g/dL Low 13.0-17.0 [facility] Comment on above: Performed By: #### L [id number] ####[facility] ([facility])[address] [place] [address] IMMATURE PLATELET FRACTION % 11.0 % High 0.8-6.3 [facility] Comment on above: Performed By: #### L [id number] ####[facility] ([facility])[address] [place] [address] MCH (RBC) [Entitic mass] 27.6 pg Normal 27.0-33.0 [facility] Comment on above: Performed By: #### L [id number] ####[facility] ([facility])[address] [place] [address] MCV (RBC) [Entitic vol] 85.1 fL Normal 82.0-98.0 [facility] Comment on above: Performed By: #### L [id number] ####[facility] ([facility])[address] [place] [address] PLATELETS (10*3/UL) IN BLOOD AUTOMATED COUNT 85 10*3/uL Low 150-400 [facility] Comment on above: Result Comment: Last plt 79 1d Performed By: #### L [id number] ####[facility] ([facility])[address] [place] [address] RBC (Bld) [#/Vol] 2.61 10*6/uL Low 4.20-5.70 [facility] Comment on above: Performed By: #### L [id number] ####[facility] ([facility])[address] [place] [address] WBC (Bld) [#/Vol] 5.70 10*3/uL Normal 4.00-10.60 [facility] Comment on above: Performed By: #### L [id number] ####[facility] ([facility])[address] [place] [address] HEMOGLOBIN AND HEMATOCRIT, B LOODon 01-31-2023 Hematocrit (Bld) [Volume fraction] 29.9 % Low 39.0-55.0 [facility] Comment on above: Performed By: #### L [id number] ####[facility] ([facility])[address] [place] [address] Hemoglobin (Bld) [Mass/Vol] 9.3 g/dL Low 13.0-17.0 [facility] Comment on above: Performed By: #### L [id number] ####[facility] ([facility])[address] [place] [address] HEPARIN LEVELon 01-31-2023 HEPARIN UNFRACTIONATED (U/ML) IN PPP BY CHROMOGENIC METHOD 0.21 IU/mL Low 0.3-0.7 [facility] Comment on above: Result Comment: Ho Ho Kus roxaban and Apixaban will interfere with the anti Xa assay used to monitor UFH and LMWH. Performed By: #### L [id number] ####[facility] ([facility])[address] [place] [address] POCT GLUCOSE METER UNSOLICIT ED RESULTSon 01-31-2023 Glucose [Mass/Vol] 138 mg/dL High 70-105 [facility] Comment on above: Result Comment: jead es Performed By: #### L [id number] ####[facility] ([facility])[address] [place] [address] Glucose [Mass/Vol] 110 mg/dL High 70-105 [facility] Comment on above: Result Comment: jead es Performed By: #### L [id number] ####[facility] ([facility])[address] [place] [address] Glucose [Mass/Vol] 133 mg/dL High 70-105 [facility] Comment on above: Result Comment: aston es Performed By: #### L [id number] ####[facility] ([facility])[address] [place] [address] VANCOMYCIN, PEAKon 3 VANCOMYCIN (UG/ML) IN SER/PLAS - PEAK 16.4 ug/mL Low 20.0-50.0 [facility] Comment on above: Order Comment: DO NO T DRAW WITH MORNING LABSVancomycin peak to be drawn at 0830 Performed By: #### L [id number] ####[facility] ([facility])[address] [place] [address] VANCOMYCIN, TROUGHon 023 VANCOMYCIN (UG/ML) IN SER/PLAS - TROUGH 10.6 ug/mL Normal 5.0-20.0 [facility] Comment on above: Performed By: #### L [id number] ####[facility] ([facility])[address] [place] [place] [address] 30on 01-30-2023 30 Normal [facility] 30 Normal [facility] ANESon 01-30-2023 ANES Normal [facility] APTTon 01-30-2023 ACTIVATED PARTIAL THROMBOPLASTIN TIME IN PPP BY COAGULATION ASSAY 41.6 Seconds High 25.0-35.0 [facility] Comment on above: Result Comment: Clin ical significance of the APTT is questionable in the presence of heparin. Performed By: #### L [id number] ####[facility] ([facility])[address] [place] [address] BASIC METABOLIC PANELon 01-09 Anion gap [Moles/Vol] 7 mmol/L Normal 7-20 [facility] Comment on above: Performed By: #### L [id number] ####[facility] ([facility])[address] [place] [address] Calcium [Mass/Vol] 8.2 mg/dL Low 8.6-10.3 [facility] Comment on above: Performed By: #### L [id number] ####[facility] ([facility])[address] [place] [address] Chloride [Moles/Vol] 105 mmol/L Normal 98-[address] [facility] Comment on above: Performed By: #### L [id number] ####[facility] ([facility])[address] [place] [address] CO2 [Moles/Vol] 23 mmol/L Normal 21-31 [facility] Comment on above: Performed By: #### L [id number] ####[facility] ([facility])[address] [place] [address] Creatinine [Mass/Vol] 0.43 mg/dL Low 0.70-1.30 [facility] Comment on above: Performed By: #### L [id number] ####[facility] ([facility])[address] [place] [address] GLOMERULAR FILTRATION RATE ML/MIN/1.73 SQ M.PREDICTED 110.6 mL/min/1.73m*2 Normal >60.0 [facility] Comment on above: Result Comment: [facility]???s estimated glomerular filtration rate (eGFR) will [...] of individuals. Performed By: #### L [id number] ####[facility] ([facility])[address] [place] [address] Glucose [Mass/Vol] 175 mg/dL High 70-100 [facility] Comment on above: Performed By: #### L [id number] ####[facility] ([facility])[address] [place] [address] Potassium [Moles/Vol] 3.7 mmol/L Normal 3.5-5.1 [facility] Comment on above: Performed By: #### L [id number] ####[facility] ([facility])[address] [place] [address] Sodium [Moles/Vol] 131 mmol/L Low 136-145 [facility] Comment on above: Performed By: #### L [id number] ####[facility] ([facility])[address] [place] [address] Urea nitrogen [Mass/Vol] 11 mg/dL Normal 7-25 [facility] Comment on above: Performed By: #### L [id number] ####[facility] ([facility])[address] [place] [address] UREA NITROGEN/CREATININE (MASS RATIO) IN SER/PLAS 25.6 Normal [facility] Comment on above: Performed By: #### L [id number] ####[facility] ([facility])[address] [place] [address] Anion gap [Moles/Vol] 9 mmol/L Normal 7-20 [facility] Comment on above: Performed By: #### L [id number] ####[facility] ([facility])[address] [place] [address] Calcium [Mass/Vol] 7.6 mg/dL Low 8.6-10.3 [facility] Comment on above: Performed By: #### L [id number] ####[facility] ([facility])[address] [place] [address] Chloride [Moles/Vol] 104 mmol/L Normal 98-[address] [facility] Comment on above: Performed By: #### L [id number] ####[facility] ([facility])[address] [place] [address] CO2 [Moles/Vol] 22 mmol/L Normal 21-31 [facility] Comment on above: Performed By: #### L [id number] ####[facility] ([facility])[address] [place] [address] Creatinine [Mass/Vol] 0.47 mg/dL Low 0.70-1.30 [facility] Comment on above: Performed By: #### L [id number] ####[facility] ([facility])[address] [place] [address] GLOMERULAR FILTRATION RATE ML/MIN/1.73 SQ M.PREDICTED 107.7 mL/min/1.73m*2 Normal >60.0 [facility] Comment on above: Result Comment: [facility]???s estimated glomerular filtration rate (eGFR) will [...] of individuals. Performed By: #### L [id number] ####[facility] ([facility])[address] [place] [address] Glucose [Mass/Vol] 191 mg/dL High 70-100 [facility] Comment on above: Performed By: #### L [id number] ####[facility] ([facility])[address] [place] [address] Potassium [Moles/Vol] 4.1 mmol/L Normal 3.5-5.1 [facility] Comment on above: Performed By: #### L [id number] ####[facility] ([facility])[address] [place] [address] Sodium [Moles/Vol] 131 mmol/L Low 136-145 [facility] Comment on above: Performed By: #### L [id number] ####[facility] ([facility])[address] [place] [address] Urea nitrogen [Mass/Vol] 12 mg/dL Normal 7-25 [facility] Comment on above: Performed By: #### L [id number] ####[facility] ([facility])[address] [place] [address] UREA NITROGEN/CREATININE (MASS RATIO) IN SER/PLAS 25.5 Normal [facility] Comment on above: Performed By: #### L [id number] ####[facility] ([facility])[address] [address] BLOOD CULTUREon 01-30-2023 Bacteria identified Cx Nom (Bld) No growth at 5 days Normal [facility] Comment on above: Order Comment: From a different site than #1. Performed By: #### L [id number] ####[facility] ([facility])[address] [address] CBCon 01-30-2023 Erythrocyte distribution width (RBC) [Ratio] 15.8 % High 11.5-15.0 [facility] Comment on above: Performed By: #### L [id number] ####[facility] ([facility])[address] [place] [address] ERYTHROCYTE MEAN CORPUSCULAR HEMOGLOBIN CONCENTRATION (G/DL) BY AUTOMATED 32.3 g/dL Normal 32.0-35.0 [facility] Comment on above: Performed By: #### L [id number] ####[facility] ([facility])[address] [place] [address] Hematocrit (Bld) [Volume fraction] 24.8 % Low 39.0-55.0 [facility] Comment on above: Performed By: #### L [id number] ####[facility] ([facility])[address] [place] [address] Hemoglobin (Bld) [Mass/Vol] 8.0 g/dL Low 13.0-17.0 [facility] Comment on above: Performed By: #### L [id number] ####[facility] ([facility])[address] [place] [address] IMMATURE PLATELET FRACTION % 10.3 % High 0.8-6.3 [facility] Comment on above: Performed By: #### L [id number] ####[facility] ([facility])[address] [place] [address] MCH (RBC) [Entitic mass] 27.2 pg Normal 27.0-33.0 [facility] Comment on above: Performed By: #### L [id number] ####[facility] ([facility])[address] [address] MCV (RBC) [Entitic vol] 84.4 fL Normal 82.0-98.0 [facility] Comment on above: Performed By: #### L [id number] ####[facility] ([facility])[address] [place] [address] PLATELETS (10*3/UL) IN BLOOD AUTOMATED COUNT 79 10*3/uL Low 150-400 [facility] Comment on above: Performed By: #### L [id number] ####[facility] ([facility])[address] [place] [address] RBC (Bld) [#/Vol] 2.94 10*6/uL Low 4.20-5.70 [facility] Comment on above: Performed By: #### L [id number] ####[facility] ([facility])[address] [place] [address] WBC (Bld) [#/Vol] 5.09 10*3/uL Normal 4.00-10.60 [facility] Comment on above: Performed By: #### L [id number] ####[facility] ([facility])[address] [place] [address] CBC WITH AUTO DIFFERENTIALon 01-30-2023 Erythrocyte distribution width (RBC) [Ratio] 15.6 % High 11.5-15.0 [facility] Comment on above: Performed By: #### L [id number] ####[facility] ([facility])[address] [place] [address] ERYTHROCYTE MEAN CORPUSCULAR HEMOGLOBIN CONCENTRATION (G/DL) BY AUTOMATED 33.5 g/dL Normal 32.0-35.0 [facility] Comment on above: Performed By: #### L [id number] ####[facility] ([facility])[address] [place] [address] Hematocrit (Bld) [Volume fraction] 24.2 % Low 39.0-55.0 [facility] Comment on above: Performed By: #### L [id number] ####[facility] ([facility])[address] [place] [address] Hemoglobin (Bld) [Mass/Vol] 8.1 g/dL Low 13.0-17.0 [facility] Comment on above: Performed By: #### L [id number] ####[facility] ([facility])[address] [place] [address] IMMATURE PLATELET FRACTION % 10.2 % High 0.8-6.3 [facility] Comment on above: Performed By: #### L [id number] ####[facility] ([facility])[address] [place] [address] MCH (RBC) [Entitic mass] 28.1 pg Normal 27.0-33.0 [facility] Comment on above: Performed By: #### L [id number] ####[facility] ([facility])[address] [place] [address] MCV (RBC) [Entitic vol] 84.0 fL Normal 82.0-98.0 [facility] Comment on above: Performed By: #### L [id number] ####[facility] ([facility])[address] [place] [address] NRBC (PER 100 WBCS) BY AUTOMATED COUNT 0.0 % Normal 0.0-0.0 [facility] Comment on above: Performed By: #### L [id number] ####[facility] ([facility])[address] [place] [address] PLATELETS (10*3/UL) IN BLOOD AUTOMATED COUNT 80 10*3/uL Low 150-400 [facility] Comment on above: Performed By: #### L [id number] ####[facility] ([facility])[address] [place] [address] RBC (Bld) [#/Vol] 2.88 10*6/uL Low 4.20-5.70 [facility] Comment on above: Performed By: #### L [id number] ####[facility] ([facility])[address] [place] [address] WBC (Bld) [#/Vol] 4.26 10*3/uL Normal 4.00-10.60 [facility] Comment on above: Performed By: #### L [id number] ####[facility] ([facility])[address] [place] [address] CONSULTon 01-30-2023 CONSULT Normal [facility] CONSULT Normal [facility] FIBRINOGENon 01-30-2023 Magnesium [Mass/Vol] 219 mg/dL Normal 150-[address] [facility] Comment on above: Performed By: #### L [id number] ####[facility] ([facility])[address] [place] [address] HEPARIN LEVELon 01-30-2023 HEPARIN UNFRACTIONATED (U/ML) IN PPP BY CHROMOGENIC METHOD >1.00 Critically high 0.3-0.7 [facility] Comment on above: Result Comment: Ho Ho Kus roxaban and Apixaban will interfere with the anti Xa assay used to monitor UFH and LMWH. Performed By: #### L [id number] ####[facility] ([facility])[address] [place] [address] HEPARIN UNFRACTIONATED (U/ML) IN PPP BY CHROMOGENIC METHOD >1.00 Critically high 0.3-0.7 [facility] Comment on above: Result Comment: Masha roxaban and Apixaban will interfere with the anti Xa assay used to monitor UFH and LMWH. Performed By: #### L [id number] ####[facility] ([facility])[address] [place] [address] HEPATIC FUNCTION PANELon Albumin [Mass/Vol] 2.8 g/dL Low 3.5-5.7 [facility] Comment on above: Performed By: #### L [id number] ####[facility] ([facility])[address] [place] [address] ALP [Catalytic activity/Vol] 42 U/L Normal 34-104 [facility] Comment on above: Performed By: #### L [id number] ####[facility] ([facility])[address] [place] [address] ALT [Catalytic activity/Vol] 13 U/L Normal 7-52 [facility] Comment on above: Performed By: #### L [id number] ####[facility] ([facility])[address] [place] [address] AST [Catalytic activity/Vol] 17 U/L Normal 13-39 [facility] Comment on above: Performed By: #### L [id number] ####[facility] ([facility])[address] [place] [address] Bilirubin [Mass/Vol] 2.6 mg/dL High 0.3-1.[address] [facility] Comment on above: Performed By: #### L [id number] ####[facility] ([facility])[address] [place] [address] Magnesium [Mass/Vol] 1.1 mg/dL High 0-0.[address] [facility] Comment on above: Performed By: #### L [id number] ####[facility] ([facility])[address] [place] [address] Protein [Mass/Vol] 5.4 g/dL Low 6.0-8.3 [facility] Comment on above: Performed By: #### L [id number] ####[facility] ([facility])[address] [place] [address] LACTIC ACID WITH 4 HOUR REFL EXon 01-30-2023 LACTATE (MMOL/L) IN SER/PLAS 0.8 mmol/L Normal 0.5-2.2 [facility] Comment on above: Performed By: #### L [id number] ####[facility] ([facility])[address] [place] [address] MAGNESIUMon 01-30-2023 Magnesium [Mass/Vol] 2.2 mg/dL Normal 1.9-2.[address] [facility] Comment on above: Performed By: #### L [id number] ####[facility] ([facility])[address] [address] Magnesium [Mass/Vol] 1.7 mg/dL Low 1.9-2.[address] [facility] Comment on above: Performed By: #### L [id number] ####[facility] ([facility])[address] [address] MANUAL DIFFERENTIALon 2022 BASOPHILS (10*3/UL) IN BLOOD BY CALCULATION 0.01 10*3/uL Normal 0.00-0.20 [facility] Comment on above: Performed By: #### L [id number] ####[facility] ([facility])[address] [address] BASOPHILS/100 LEUKOCYTES IN BLOOD BY AUTOMATED COUNT 0.2 % Normal 0.0-1.0 [facility] Comment on above: Performed By: #### L [id number] ####[facility] ([facility])[address] [place] [address] EOSINOPHILS (10*3/UL) IN BLOOD BY CALCULATION 0.00 10*3/uL Normal 0.00-0.50 [facility] Comment on above: Performed By: #### L [id number] ####[facility] ([facility])[address], [place] [address] EOSINOPHILS/100 LEUKOCYTES IN BLOOD BY AUTOMATED COUNT 0.0 % Normal 0.0-6.0 [facility] Comment on above: Performed By: #### L [id number] ####[facility] ([facility])[address], [place] [address] IMMATURE GRANULOCYTES (10*3/UL) IN BLOOD BY CALCULATION 0.10 10*3/uL Normal 0.00-0.20 [facility] Comment on above: Performed By: #### L [id number] ####[facility] ([facility])[address] [place] [address] IMMATURE GRANULOCYTES/100 LEUKOCYTES IN BLOOD BY AUTOMATED COUNT 2.3 % High 0.0-1.0 [facility] Comment on above: Performed By: #### L [id number] ####[facility] ([facility])[address] [address] LYMPHOCYTES (10*3/UL) IN BLOOD BY CALCULATION 0.23 10*3/uL Low 1.20-4.00 [facility] Comment on above: Performed By: #### L [id number] ####[facility] ([facility])[address] [address] LYMPHOCYTES/100 LEUKOCYTES IN BLOOD BY AUTOMATED COUNT 5.4 % Low 20.0-45.0 [facility] Comment on above: Performed By: #### L [id number] ####[facility] ([facility])[address] [place] [address] MONOCYTES (10*3/UL) IN BLOOD BY CALCUATION 0.18 10*3/uL Normal 0.10-1.00 [facility] Comment on above: Performed By: #### L [id number] ####[facility] ([facility])[address] [address] MONOCYTES/100 LEUKOCYTES IN BLOOD BY AUTOMATED COUNT 4.2 % Low 5.0-12.0 [facility] Comment on above: Performed By: #### L [id number] ####[facility] ([facility])[address] [address] NEUTROPHILS (10*3/UL) IN BLOOD BY CALCULATION 3.7 10*3/uL Normal 1.6-7.6 [facility] Comment on above: Performed By: #### L [id number] ####[facility] ([facility])[address], [place] [address] NEUTROPHILS/100 LEUKOCYTES IN BLOOD BY AUTOMATED COUNT 87.9 % High 40.0-72.0 [facility] Comment on above: Performed By: #### L [id number] ####[place] [facility] ([facility])[address] [place] [address] PHOSPHORUSon 01-30-2023 Magnesium [Mass/Vol] 2.8 mg/dL Normal 2.5-5.[address] [facility] Comment on above: Performed By: #### L [id number] ####[facility] ([facility])[address] [place] [address] POCT GLUCOSE METER UNSOLICIT ED RESULTSon 01-30-2023 Glucose [Mass/Vol] 128 mg/dL High 70-105 [facility] Comment on above: Result Comment: logan anuja Performed By: #### L [id number] ####[facility] ([facility])[address] [place] [address] Glucose [Mass/Vol] 118 mg/dL High 70-105 [facility] Comment on above: Result Comment: chan wendy Performed By: #### L [id number] ####[facility] ([facility])[address] [place] [address] Glucose [Mass/Vol] 157 mg/dL High 70-105 [facility] Comment on above: Result Comment: ebol tz Performed By: #### L [id number] ####[facility] ([facility])[address] [place] [address] Glucose [Mass/Vol] 192 mg/dL High 70-105 [facility] Comment on above: Result Comment: ekir by3 Performed By: #### L [id number] ####[facility] ([facility])[address] [place] [address] PROTIME-INRon 01-30-2023 INR IN PPP BY COAGULATION ASSAY 1.68 High 0.90-1.10 [facility] Comment on above: Result Comment: ACCC [...] CHEST 1995;108:[id number]. Performed By: #### L [id number] ####[facility] ([employer])[address] [place] [address] PROTHROMBIN TIME (PT) IN PPP BY COAGULATION ASSAY 19.6 Seconds High 12.3-14.8 [facility] Comment on above: Performed By: #### L [id number] ####[facility] ([employer])[address] [place] [address] ANESon 01-29-2023 ANES Normal [facility] APTTon 01-29-2023 ACTIVATED PARTIAL THROMBOPLASTIN TIME IN PPP BY COAGULATION ASSAY 33.0 Seconds Normal 25.0-35.0 [facility] Comment on above: Result Comment: Clin ical significance of the APTT is questionable in the presence of heparin. Performed By: #### L [id number] ####[facility])[address] [place] [address] BASIC METABOLIC PANELon 01-09 Anion gap [Moles/Vol] 10 mmol/L Normal 7-20 [facility] Comment on above: Performed By: #### L [id number] ####[facility] ([employer])[address] [place] [address] Calcium [Mass/Vol] 7.6 mg/dL Low 8.6-10.3 [facility] Comment on above: Performed By: #### L [id number] ####[facility] ([employer])[address] [place] [address] Chloride [Moles/Vol] 101 mmol/L Normal 98-[address] [facility] Comment on above: Performed By: #### L [id number] ####[facility] ([facility])[address] [place] [address] CO2 [Moles/Vol] 22 mmol/L Normal 21-31 [facility] Comment on above: Performed By: #### L [id number] ####[facility] ([facility])[address] [place] [address] Creatinine [Mass/Vol] 0.54 mg/dL Low 0.70-1.30 [facility] Comment on above: Performed By: #### L [id number] ####[facility] ([facility])[address] [place] [address] GLOMERULAR FILTRATION RATE ML/MIN/1.73 SQ M.PREDICTED 103.3 mL/min/1.73m*2 Normal >60.0 [facility] Comment on above: Result Comment: [facility]???s estimated glomerular filtration rate (eGFR) will [...] of individuals. Performed By: #### L [id number] ####[facility] ([facility])[address] [place] [address] Glucose [Mass/Vol] 139 mg/dL High 70-100 [facility] Comment on above: Performed By: #### L [id number] ####[facility] ([facility])[address] [place] [address] Potassium [Moles/Vol] 4.1 mmol/L Normal 3.5-5.1 [facility] Comment on above: Performed By: #### L [id number] ####[facility] ([facility])[address] [place] [address] Sodium [Moles/Vol] 129 mmol/L Low 136-145 [facility] Comment on above: Performed By: #### L [id number] ####[facility] ([facility])[address] [place] [address] Urea nitrogen [Mass/Vol] 13 mg/dL Normal 7-25 [facility] Comment on above: Performed By: #### L [id number] ####[facility] ([facility])[address] [address] UREA NITROGEN/CREATININE (MASS RATIO) IN SER/PLAS 24.1 Normal [facility] Comment on above: Performed By: #### L [id number] ####[facility] ([facility])[address] [address] CBCon 01-29-2023 Erythrocyte distribution width (RBC) [Ratio] 16.4 % High 11.5-15.0 [facility] Comment on above: Performed By: #### L [id number] ####[facility] ([facility])[address] [place] [address] ERYTHROCYTE MEAN CORPUSCULAR HEMOGLOBIN CONCENTRATION (G/DL) BY AUTOMATED 30.8 g/dL Low 32.0-35.0 [facility] Comment on above: Performed By: #### L [id number] ####[facility] ([facility])[address] [place] [address] Hematocrit (Bld) [Volume fraction] 22.1 % Low 39.0-55.0 [facility] Comment on above: Performed By: #### L [id number] ####[facility] ([facility])[address] [place] [address] Hemoglobin (Bld) [Mass/Vol] 6.8 g/dL Low 13.0-17.0 [facility] Comment on above: Performed By: #### L [id number] ####[facility] ([facility])[address] [place] [address] IMMATURE PLATELET FRACTION % 11.1 % High 0.8-6.3 [facility] Comment on above: Performed By: #### L [id number] ####[facility] ([facility])[address] [place] [address] MCH (RBC) [Entitic mass] 26.5 pg Low 27.0-33.0 [facility] Comment on above: Performed By: #### L [id number] ####[facility] ([facility])[address] [place] [address] MCV (RBC) [Entitic vol] 86.0 fL Normal 82.0-98.0 [facility] Comment on above: Performed By: #### L [id number] ####[facility] ([facility])[address] [place] [address] PLATELETS (10*3/UL) IN BLOOD AUTOMATED COUNT 96 10*3/uL Low 150-400 [facility] Comment on above: Performed By: #### L [id number] ####[facility] ([facility])[address] [place] [address] RBC (Bld) [#/Vol] 2.57 10*6/uL Low 4.20-5.70 [facility] Comment on above: Performed By: #### L [id number] ####[facility] ([facility])[address] [place] [address] WBC (Bld) [#/Vol] 4.09 10*3/uL Normal 4.00-10.60 [facility] Comment on above: Performed By: #### L [id number] ####[facility] ([facility])[address] [place] [address] CBC AUTO DIFFon 01-29-2023 BASO # 0.0 103/ul Normal 0.0-0.1 [facility] Comment on above: Performed By: #### P TT, PT #### [facility] [address] [address] [address] Joselyn Coffey Basophils/100 WBC (Bld) 0.2 % Normal 0.2-2.0 [facility] Comment on above: Performed By: #### P TT, PT #### [facility] [address] [place] [address] Dr. Joselyn Coffey EO # 0.0 103/ul Normal 0.0-0.7 [facility] Comment on above: Performed By: #### P TT, PT #### [facility] [address] [place] [address] Dr. Joselyn Coffey Eosinophils/100 WBC (Bld) 0.0 % Critically low 0.9-7.0 [facility] Comment on above: Performed By: #### P TT, PT #### [facility] [address] [place] [address] Dr. Joselyn Coffey Erythrocyte distribution width (RBC) [Ratio] 17.7 % Critically high 11.0-15.0 [facility] Comment on above: Performed By: #### P TT, PT #### [facility] [address] [place] [address] Dr. Joselyn Coffey Hematocrit (Bld) [Volume fraction] 17.5 % Critically low 42.0-54.0 [facility] Comment on above: Performed By: #### P TT, PT #### [facility] [address] [place] [address] Dr. Joselyn Coffey Hemoglobin (Bld) [Mass/Vol] 5.1 g/dL Critically low 14.0-18.0 [facility] Comment on above: Performed By: #### P TT, PT #### [facility] [address] [place] [address] Dr. Joselyn Coffey IG # 0.02 10e3/ul Normal 0.00-0.03 [facility] Comment on above: Performed By: #### P TT, PT #### [facility] [address] [place] [address] Dr. Joselyn Coffey IG % 0.4 % Normal 0.0-0.5 [facility] Comment on above: Performed By: #### P TT, PT #### [facility] [address] [place] [address] Dr. Joselyn Coffey LYMPH # 0.3 103/ul Critically low 1.2-3.8 [facility] Comment on above: Performed By: #### P TT, PT #### [facility] [address] [place] [address] Dr. Joselyn Coffey Lymphocytes/100 WBC (Bld) 5.8 % Critically low 20.5-60.0 [facility] Comment on above: Performed By: #### P TT, PT #### [facility] [address] [place] [address] Dr. Joselyn Coffey MANUAL DIFF REQ NO Normal [facility] Comment on above: Performed By: #### P TT, PT #### [facility] [address] [place] [address] Dr. Joselyn Coffey MCH (RBC) [Entitic mass] 25.5 pg Critically low 25.9-34.0 [facility] Comment on above: Performed By: #### P TT, PT #### [facility] [address] [place] [address] Dr. Joselyn Coffey MCHC (RBC) [Mass/Vol] 29.1 g/dL Critically low 29.9-35.2 [facility] Comment on above: Performed By: #### P TT, PT #### [facility] [address] [place] [address] Dr. Joselyn Coffey MCV (RBC) [Entitic vol] 87.5 fL Normal 80.0-94.0 [facility] Comment on above: Performed By: #### P TT, PT #### [facility] [address] [place] [address] Dr. Joselyn Coffey MONO # 0.5 103/ul Normal 0.3-0.8 [facility] Comment on above: Performed By: #### P TT, PT #### [facility] [address] [place] [address] Dr. Joselyn Coffey Monocytes/100 WBC (Bld) 10.4 % Normal 1.7-12.0 [facility] Comment on above: Performed By: #### P TT, PT #### [facility] [address] [place] [address] Dr. Joselyn Coffey NEUT # 4.3 103/ul Normal 1.4-6.5 [facility] Comment on above: Performed By: #### P TT, PT #### [facility] [address] [place] [address] Dr. Joselyn Coffey Neutrophils/100 WBC (Bld) 83.2 % Critically high 43.0-75.0 [facility] Comment on above: Performed By: #### P TT, PT #### [facility] [address] [place] [address] Dr. Joselyn Coffey Platelet mean volume (Bld) [Entitic vol] 12.4 fL Normal 9.5-13.5 [facility] Comment on above: Performed By: #### P TT, PT #### [facility] [address] [place] [address] Dr. Joselyn Coffey PLT 113 103/ul Critically low 150-450 [facility] Comment on above: Performed By: #### P TT, PT #### [facility] [address] [place] [address] Dr. Joselyn Coffey RBC 2.00 106/ul Critically low 4.70-6.10 [facility] Comment on above: Performed By: #### P TT, PT #### [facility] [address] [place] [address] Dr. Joselyn Coffey WBC 5.2 103/ul Normal 4.0-11.0 [facility] Comment on above: Performed By: #### P TT, PT #### [facility] [address] [place] [address] Dr. Joselyn Coffey CTA ABD MARY JANE [...] by: LUZ NIETO Date: 2023-01-29 17:48 Normal [facility] EDPROVon 01-29-2023 EDPROV Normal [facility] FIBRINOGENon 01-29-2023 Magnesium [Mass/Vol] 275 mg/dL Normal 150-[address] [facility] Comment on above: Performed By: #### L [id number] ####[facility] ([facility])[address] [place] [address] HPon 01-29-2023 HP Normal [facility] OPNOTEon 01-29-2023 OPNOTE Normal [facility] POCT ACTIVATED CLOTTING TIME UNSOLICITED RESULTSon 01-29-2023 POC ACTIVATED CLOTTING TIME 144 sec Normal 82-152 [facility] Comment on above: Performed By: #### L [id number] ####[facility] ([facility])[address] [place] [address] POC ACTIVATED CLOTTING TIME 169 sec High 82-152 [facility] Comment on above: Performed By: #### L [id number] ####[facility] ([facility])[address] [place] [address] POC ACTIVATED CLOTTING TIME 151 sec Normal 82-152 [facility] Comment on above: Performed By: #### L [id number] ####[facility] ([facility])[address] [place] [address] POCT GLUCOSE METER UNSOLICIT ED RESULTSon 01-29-2023 Glucose [Mass/Vol] 154 mg/dL High 70-105 [facility] Comment on above: Result Comment: ekir by3 Performed By: #### L [id number] ####[facility] ([facility])[address] [place] [address] POCT PERFUSION PANEL UNSOLIC ITED RESULTSon 01-29-2023 CO2 [Moles/Vol] 24.0 mmol/L Normal 21.0-29.0 [facility] Comment on above: Performed By: #### L [id number] ####[facility] ([facility])[address] [place] [address] Glucose [Mass/Vol] 181 mg/dL High 70-105 [facility] Comment on above: Performed By: #### L [id number] ####[facility] ([facility])[address] [address] HCO3 (Bld) [Moles/Vol] 22.8 mmol/L Low 23.0-28.0 [facility] Comment on above: Performed By: #### L [id number] ####[facility] ([facility])[address], [place] [address] Hematocrit (Bld) [Volume fraction] 23 % Low 38-51 [facility] Comment on above: Performed By: #### L [id number] ####[facility] ([facility])[address] [address] Hemoglobin (Bld) [Mass/Vol] 7.8 g/dL Low 12.0-17.0 [facility] Comment on above: Performed By: #### L [id number] ####[facility] ([facility])[address] [place] [address] POCT BASE EXCESS -2.0 mmol/L Normal -2.0-3.0 [facility] Comment on above: Performed By: #### L [id number] ####[facility] ([facility])[address] [place] [address] POCT IONIZED CALCIUM 1.13 mmol/L Normal 1.12-1.32 [facility] Comment on above: Performed By: #### L [id number] ####[facility] ([facility])[address] [place] [address] POCT PCO2 39.9 mmHg Low 41.0-51.0 [facility] Comment on above: Performed By: #### L [id number] ####[facility] ([facility])[address] [place] [address] POCT PH 7.37 Normal 7.31-7.41 [facility] Comment on above: Performed By: #### L [id number] ####[facility] ([facility])[address] [place] [address] POCT PO2 436 mmHg High 80-105 [facility] Comment on above: Performed By: #### L [id number] ####[facility] ([facility])[address] [address] POCT SO2 100 % High 95-98 [facility] Comment on above: Performed By: #### L [id number] ####[facility] ([facility])[address] [address] Potassium [Moles/Vol] 4.4 mmol/L Normal 3.5-4.9 [facility] Comment on above: Performed By: #### L [id number] ####[facility] ([facility])[address] [address] Sodium [Moles/Vol] 135 mmol/L Low 138.0-146.0 [facility] Comment on above: Performed By: #### L [id number] ####[facility] ([facility])[address] [place] [address] CO2 [Moles/Vol] 23.0 mmol/L Normal 21.0-29.0 [facility] Comment on above: Performed By: #### L [id number] ####[facility] ([facility])[address] [address] Glucose [Mass/Vol] 157 mg/dL High 70-105 [facility] Comment on above: Performed By: #### L [id number] ####[facility] ([facility])[address] [address] HCO3 (Bld) [Moles/Vol] 21.5 mmol/L Low 23.0-28.0 [facility] Comment on above: Performed By: #### L [id number] ####[facility] ([facility])[address] [place] [address] Hematocrit (Bld) [Volume fraction] 19 % Low 38-51 [facility] Comment on above: Performed By: #### L [id number] ####[facility] ([facility])[address], [place] [address] Hemoglobin (Bld) [Mass/Vol] 6.5 g/dL Low 12.0-17.0 [facility] Comment on above: Performed By: #### L [id number] ####[facility] ([facility])[address] [place] [address] POCT BASE EXCESS -4.0 mmol/L Low -2.0-3.0 [facility] Comment on above: Performed By: #### L [id number] ####[facility] ([facility])[address] [place] [address] POCT IONIZED CALCIUM 1.34 mmol/L High 1.12-1.32 [facility] Comment on above: Performed By: #### L [id number] ####[facility] ([facility])[address] [place] [address] POCT PCO2 43.5 mmHg Normal 41.0-51.0 [facility] Comment on above: Performed By: #### L [id number] ####[facility] ([facility])[address] [place] [address] POCT PH 7.30 Low 7.31-7.41 [facility] Comment on above: Performed By: #### L [id number] ####[facility] ([facility])[address] [place] [address] POCT PO2 198 mmHg High 80-105 [facility] Comment on above: Performed By: #### L [id number] ####[facility] ([facility])[address] [place] [address] POCT SO2 100 % High 95-98 [facility] Comment on above: Performed By: #### L [id number] ####[facility] ([facility])[address] [place] [address] Potassium [Moles/Vol] 4.1 mmol/L Normal 3.5-4.9 [facility] Comment on above: Performed By: #### L [id number] ####[facility] ([facility])[address] [place] [address] Sodium [Moles/Vol] 134 mmol/L Low 138.0-146.0 [facility] Comment on above: Performed By: #### L [id number] ####[facility] ([facility])[address] [place] [address] CO2 [Moles/Vol] 24.0 mmol/L Normal 21.0-29.0 [facility] Comment on above: Performed By: #### L [id number] ####[facility] ([facility])[address] [place] [address] Glucose [Mass/Vol] 167 mg/dL High 70-105 [facility] Comment on above: Performed By: #### L [id number] ####[facility] ([facility])[address] [place] [address] HCO3 (Bld) [Moles/Vol] 22.5 mmol/L Low 23.0-28.0 [facility] Comment on above: Performed By: #### L [id number] ####[facility] ([facility])[address] [place] [address] Hematocrit (Bld) [Volume fraction] 24 % Low 38-51 [facility] Comment on above: Performed By: #### L [id number] ####[facility] ([facility])[address] [place] [address] Hemoglobin (Bld) [Mass/Vol] 8.2 g/dL Low 12.0-17.0 [facility] Comment on above: Performed By: #### L [id number] ####[facility] ([facility])[address] [place] [address] POCT BASE EXCESS -3.0 mmol/L Low -2.0-3.0 [facility] Comment on above: Performed By: #### L [id number] ####[facility] ([facility])[address] [place] [address] POCT IONIZED CALCIUM 1.17 mmol/L Normal 1.12-1.32 [facility] Comment on above: Performed By: #### L [id number] ####[facility] ([facility])[address] [address] POCT PCO2 39.6 mmHg Low 41.0-51.0 [facility] Comment on above: Performed By: #### L [id number] ####[facility] ([facility])[address] [address] POCT PH 7.36 Normal 7.31-7.41 [facility] Comment on above: Performed By: #### L [id number] ####[facility] ([facility])[address], [place] [address] POCT PO2 252 mmHg High 80-105 [facility] Comment on above: Performed By: #### L [id number] ####[facility] ([facility])[address], [place] [address] POCT SO2 100 % High 95-98 [facility] Comment on above: Performed By: #### L [id number] ####[facility] ([facility])[address], [place] [address] Potassium [Moles/Vol] 4.6 mmol/L Normal 3.5-4.9 [facility] Comment on above: Performed By: #### L [id number] ####[facility] ([facility])[address], [place] [address] Sodium [Moles/Vol] 133 mmol/L Low 138.0-146.0 [facility] Comment on above: Performed By: #### L [id number] ####[facility] ([facility])[address], [place] [address] PRBC LEUKOREDUCEDon 01-30-20 23 ABO and Rh group Nom (Bld) Cross Match Result Compatible Unit Blood Type O Pos Unit Number [id number] Status Information Issued Product ID Red Blood Cells Product Code [id number] Issue Date/Time [id number] Cross Match Result Compatible Unit Blood Type O Pos Unit Number [id number] Status Information Issued Product ID Red Blood Cells Product Code [id number] Issue Date/Time [id number] Normal [facility] Comment on above: Performed By: #### C BCMAN #### [facility] [address] [place] [address] Dr. Joselyn Coffey PROF CHEM 8 (BAS METB)on Anion gap [Moles/Vol] 12.3 mmol/L Normal [facility] Comment on above: Performed By: #### B MP #### [facility] [address] [place] [address] Dr. Joselyn Coffey Calcium [Mass/Vol] 7.3 mg/dL Critically low 8.5-10.1 [facility] Comment on above: Performed By: #### B MP #### [facility] [address] [place] [address] Dr. Joselyn Coffey Chloride [Moles/Vol] 100 mmol/L Normal 98-107 [facility] Comment on above: Performed By: #### B MP #### [facility] [address] [place] [address] Dr. Joselyn Coffey CO2 [Moles/Vol] 23.7 mmol/L Normal 21.0-32.0 [facility] Comment on above: Performed By: #### B MP #### [facility] [address] [place] [address] Dr. Joselyn Coffey Creatinine [Mass/Vol] 0.82 mg/dL Normal 0.70-1.30 [facility] [facility] Comment on above: Performed By: #### B MP #### [facility] [address] [place] [address] Dr. Joselyn Coffey EGFR-AF BULGARIAN >60 Normal >=60 [facility] Comment on above: Performed By: #### B MP #### [facility] [address] [place] [address] Dr. Joselyn Coffey EGFR-NON AF BULGARIAN >60 Normal >=60 [facility] Comment on above: Performed By: #### B MP #### [facility] [address] [place] [address] Dr. Joselyn Coffey Glucose [Mass/Vol] 234 mg/dL Critically high 74-[address] [facility] Comment on above: Performed By: #### B MP #### [facility] [address] [place] [address] Dr. Joselyn Coffey Potassium [Moles/Vol] 4.0 mmol/L Normal 3.5-5.1 [facility] Comment on above: Performed By: #### B MP #### [facility] [address] [address] [address] Joselyn Coffey Sodium [Moles/Vol] 132 mmol/L Critically low 136-145 Th [facility] Comment on above: Performed By: #### B MP #### [facility] [address] [place] [address] Dr. Joselyn Coffey Urea nitrogen [Mass/Vol] 14.0 mg/dL Normal 7.0-18.0 [facility] Comment on above: Performed By: #### B MP #### [facility] [address] [place] [address] Dr. Joselyn Coffey Urea nitrogen/Creatinine [Mass ratio] 17.1 mg/mg Normal [facility] Comment on above: Performed By: #### B MP #### [facility] [address] [place] [address] Dr. Joselyn Coffey PROTIMEon 01-29-2023 INR Coag (PPP) [Relative time] 1.32 {INR} Normal [facility] Comment on above: Performed By: #### P TT, PT #### [facility] [address] [place] [address] Dr. Joselyn Coffey INR GUIDELINES SEE BELOW Normal [facility] Comment on above: Result Comment: SNOW RED INR: 2.0 - 3.0 CONDITIONS NOT LISTED BELOW 2.5 - 3.5 FOR PROSTHETIC HEART VALVE REPLACEMENT 2.5 - 3.5 RECURRENT THROMBOSIS Performed By: #### P TT, PT #### [facility] [address] [place] [address] Dr. Joselyn Coffey PT Coag (PPP) [Time] 13.8 s Critically high 9.0-11.6 [facility] Comment on above: Performed By: #### P TT, PT #### [facility] [address] [address] [address] Joselyn Coffey PROTIME-INRon 01-29-2023 INR IN PPP BY COAGULATION ASSAY 1.69 High 0.90-1.10 [facility] Comment on above: Result Comment: [facility] P RECOMMENDED INR FOR WARFARIN THERAPY CONDITION INRPROPHYLAXIS OF VENOUS THROMBOSIS 2-3(HIGH-RISK SURGERY)TREATMENT OF VENOUS THROMBOSIS 2-3TREATMENT OF PULMONARY EMBOLISM 2-3PREVENTION OF SYSTEMIC EMBOLISM: 2-3 ACUTE MYOCARDIAL INFARCTION TISSUE HEART VALVES VALVULAR HEART DISEASE ATRIAL FIBRILLATION RECURRENT SYSTEMIC EMBOLISMMECHANICAL HEART VALVE 2.5-3.5 FROM: ORAL ANTICOAGULANTS. MECHANISM OF ACTION, CLINICAL EFFECTIVENESS, AND OPTIMAL THERAPEUTIC RANGE. CHEST 1995;108:231S-246S. Performed By: #### L [id number] ####[facility] (BEAKER)[address] [place] [address] PROTHROMBIN TIME (PT) IN PPP BY COAGULATION ASSAY 19.7 Seconds High 12.3-14.8 [facility] Comment on above: Performed By: #### L [id number] ####[facility] (BEAKER)[address] [place] [address] PTTon 01-29-2023 aPTT Coag (Bld) [Time] 34.5 s Normal 22.3-36.2 Th e [facility] Comment on above: Performed By: #### P TT, PT #### [facility] [address] [address] [address] Joselyn Coffey TISSUE CULTUREon 01-29-2023 Bacteria identified Cx Nom (Unsp spec) No growth at 5 days Normal [facility] Comment on above: Order Comment: Pre-o p diagnosis:LEFT GROIN PSEUDOANEURYSM Performed By: #### L [id number] ####[facility] (BEAKER)[address] [facility] [place] [address] GRAM STAIN RESULT Normal [facility] Comment on above: Order Comment: Pre-o p diagnosis:LEFT GROIN PSEUDOANEURYSM Result Comment: Many Polymorphonuclear leukocytesNo organisms seen Performed By: #### L [id number] ####[facility] (BEAKER)[address] [facility] [place] [address] TYPE AND SCREENon 01-29-2023 AB SCREEN Negative Normal [facility] Comment on above: Performed By: #### L [id number] ####[facility]OD [facility], ABO group Nom (Bld) O Normal [facility] Comment on above: Performed By: #### L [id number] ####[facility], RH TYPE IN BLOOD Positive Normal [facility] Comment on above: Performed By: #### L [id number] ####[facility], TYPE AND SCREEN Negative Normal [facility] Comment on above: Performed By: #### C ESTHELA #### [facility] [address] [address] [address] Joselyn Coffey Coding Summary.on 01-18-2023 Coding Summary. Normal [facility] Formson 01-14-2023 Forms [id number]#1.00CD :127 Normal [facility] Physician Orderon 01-12-2023 Physician Order [id number]#1.00CD :127 Normal [facility] Consent for Treatmenton 12-10 Consent for Treatment [id number]#1.00CD: 127 Normal [facility] Heart and Vascular Office/Cl inic Noteon 01-06-2023 Heart and Vascular Office/Clinic Note Normal [facility] Comment on above: Result Comment: Elec tronically Signed By: Erwin Hurd MD\.br\Date and Time Signed: 01/06/23 12:03 EDT Coding Summary.on 12-27-2022 Coding Summary. Normal [facility] Consent for Treatmenton 12-08 Consent for Treatment [id number]#1.00CD: 127 Normal [facility] Heart and Vascular Office/Cl inic Noteon 12-23-2022 Heart and Vascular Office/Clinic Note Normal [facility] Comment on above: Result Comment: Elec tronically Signed By: Vickey WISE, Erwin Evans\.br\Date and Time Signed: 12/23/22 14:51 EDT Coding Summary.on 12-20-2022 Coding Summary. [facility] Consent for Treatmenton Consent for Treatment [id number]#1.00CD: 127 Normal [facility] Heart and Vascular Office/Cl inic Noteon 12-09-2022 Heart and Vascular Office/Clinic Note Normal [facility] Comment on above: Result Comment: Elec tronically Signed By: Erwin Hurd MD\.br\Date and Time Signed: 12/09/22 12:18 EST Outside HPon 12-09-2022 Outside HP [id number]#1.00CD: 127 Normal [facility] Outside Labson 12-09-2022 Outside Labs [id number]#1.00CD: 127 Normal [facility] Outside Progress Noteon Outside Progress Note [id number]#1.00CD: 127 Normal [facility] Outside Radiologyon 12-10-19 Outside Radiology [id number]#1.00CD: 127 Normal [facility] Outside Recordson 12-09-2022 Outside Records [id number]#1.00CD: 127 Normal [facility] Coding Summary.on 11-30-2022 Coding Summary. Normal [facility] Consent for Treatmenton 11-10 Consent for Treatment [id number]#1.00CD: 127 Normal [facility] Heart and Vascular Office/Cl inic Noteon 11-22-2022 Heart and Vascular Office/Clinic Note Normal [facility] Comment on above: Result Comment: Elec tronically Signed By: Vickey WISE, Erwin Evans\.br\Date and Time Signed: 11/22/22 12:14 EST CARDIAC MARCO A ADMITon 023 CK [Catalytic activity/Vol] 109 U/L Normal 39-308 [facility] Comment on above: Performed By: #### C ROSALINA, CMP #### [facility] [address] [place] [address] Dr. Joselyn Coffey CK.MB [Mass/Vol] 0.94 ng/mL Normal <=3.60 [facility] Comment on above: Performed By: #### C ROSALINA, CMP #### [facility] [address] [address] [address] Joselyn Coffey HSTROP 8.1 pg/mL Normal 4.0-76.1 [facility] Comment on above: Result Comment: CUT- OFF POINTS HAVE BEEN ESTABLISHED BASED ON THE FOURTH UNIVERSAL DEFINITIONS OF MYOCARDIAL INFARCTION. THE UPPER REFERENCE LIMIT (URL) OF TROPONIN, DEFINED THE 99TH PERCENTILE OF cTnI DISTRIBUTION IN A REFERENCE POPULATION, HAS BEEN CONFIRMED THE DECISION THRESHOLD FOR ID DIAGNOSIS. Performed By: #### C ROSALINA, CMP #### [facility] [address] [address] [address] Joselyn Coffey CHULA 144 ng/mL Critically high 16-96 [facility] Comment on above: Performed By: #### C ROSALINA, CMP #### [facility] [address] [place] [address] Dr. Joselyn Coffey CBC AUTO DIFFon 11-13-2022 BASO # 0.0 103/ul Normal 0.0-0.1 [facility] Comment on above: Performed By: #### C ESTHELA #### [facility] [address] [place] [address] Dr. Joselyn Coffey Basophils/100 WBC (Bld) 0.3 % Normal 0.2-2.0 [facility] Comment on above: Performed By: #### C ESTHELA #### [facility] [address] [place] [address] Dr. Joselyn Coffey EO # 0.0 103/ul Normal 0.0-0.7 [facility] Comment on above: Performed By: #### C ESTHELA #### [facility] [address] [place] [address] Dr. Joselyn Coffey Eosinophils/100 WBC (Bld) 0.3 % Critically low 0.9-7.0 [facility] Comment on above: Performed By: #### C ESTHELA #### [facility] [address] [place] [address] Dr. Joselyn Coffey Erythrocyte distribution width (RBC) [Ratio] 18.7 % Critically high 11.0-15.0 [facility] Comment on above: Performed By: #### C ESTHELA #### [facility] [address] [place] [address] Dr. Joselyn Coffey Hematocrit (Bld) [Volume fraction] 25.4 % Critically low 42.0-54.0 [facility] Comment on above: Performed By: #### C ESTHELA #### [facility] [address] [place] [address] Dr. Joselyn Coffey Hemoglobin (Bld) [Mass/Vol] 8.2 g/dL Critically low 14.0-18.0 [facility] Comment on above: Performed By: #### C ESTHELA #### [facility] [address] [place] [address] Dr. Joselyn Coffey IG # 0.04 10e3/ul Critically high 0.00-0.03 [facility] Comment on above: Performed By: #### C ESTHELA #### [facility] [address] [place] [address] Dr. Joselyn Coffey IG % 0.7 % Critically high 0.0-0.5 [facility] Comment on above: Performed By: #### C ESTHELA #### [facility] [address] [place] [address] Dr. Joselyn Coffey LYMPH # 0.4 103/ul Critically low 1.2-3.8 [facility] Comment on above: Performed By: #### C ESTHELA #### [facility] [address] [place] [address] Dr. Joselyn Coffey Lymphocytes/100 WBC (Bld) 7.2 % Critically low 20.5-60.0 [facility] Comment on above: Performed By: #### C ESTHELA #### [facility] [address] [place] [address] Dr. Joselyn Coffey MANUAL DIFF REQ NO Normal [facility] Comment on above: Performed By: #### C ESTHELA #### [facility] [address] [place] [address] Dr. Joselyn Coffey MCH (RBC) [Entitic mass] 32.8 pg Normal 25.9-34.0 [facility] Comment on above: Performed By: #### C ESTHELA #### [facility] [address] [place] [address] Dr. Joselyn Coffey MCHC (RBC) [Mass/Vol] 32.3 g/dL Normal 29.9-35.2 [facility] Comment on above: Performed By: #### C ESTHELA #### [facility] [address] [place] [address] Dr. Joselyn Coffey MCV (RBC) [Entitic vol] 101.6 fL Critically high 80.0-94 .0 [facility] Comment on above: Performed By: #### C ESTHELA #### [facility] [address] [place] [address] Dr. Joselyn Coffey MONO # 0.7 103/ul Normal 0.3-0.8 [facility] Comment on above: Performed By: #### C ESTHELA #### [facility] [address] [place] [address] Dr. Joselyn Coffey Monocytes/100 WBC (Bld) 11.9 % Normal 1.7-12.0 [facility] Comment on above: Performed By: #### Sammy PROCTOR #### [facility] [address] [place] [address] Dr. Joselyn Coffey NEUT # 4.7 103/ul Normal 1.4-6.5 [facility] Comment on above: Performed By: #### Sammy PROCTOR #### [facility] [address] [place] [address] Dr. Joselyn Coffey Neutrophils/100 WBC (Bld) 79.6 % Critically high 43.0-75.0 [facility] Comment on above: Performed By: #### Sammy PROCTOR #### [facility] [address] [place] [address] Dr. Joselyn Coffey Platelet mean volume (Bld) [Entitic vol] 10.8 fL Normal 9.5-13.5 [facility] Comment on above: Performed By: #### Sammy PROCTOR #### [facility] [address] [place] [address] Dr. Joselyn Coffey PLT 108 103/ul Critically low 150-450 [facility] Comment on above: Performed By: #### Sammy PROCTOR #### [facility] [address] [place] [address] Dr. Joselyn Coffey RBC 2.50 106/ul Critically low 4.70-6.10 [facility] Comment on above: Performed By: #### Sammy PROCTOR #### [facility] [address] [place] [address] Dr. Joeslyn Coffey WBC 6.0 103/ul Normal 4.0-11.0 [facility] Comment on above: Performed By: #### Sammy PROCTOR #### [facility] [address] [place] [address] Dr. Joselyn Coffey Covid-19 PCR ([facility])on SARS-CoV-2 (COVID-19) RNA HAIM+probe Ql (Unsp spec) Not detected Normal NOT DETECTED [facility] Comment on above: Result Comment: When diagnostic [...] for this test is supported by the [employer] and Human Service's declaration that [...] Performed By: #### P TT, PT #### [facility] [address] [place] [address] Dr. Joselyn Coffey ER URINE PROFILEon 3 Bilirubin Ql (U) Negative Normal NEGATIVE [facility] Comment on above: Performed By: #### P TT, PT #### [facility] [address] [place] [address] Dr. Joselyn Coffey Clarity (U) CLEAR Normal CLEAR [facility] Comment on above: Performed By: #### P TT, PT #### [facility] [address] [place] [address] Dr. Joselyn Coffey Color (U) ORANGE Abnormal YELLOW [facility] Comment on above: Performed By: #### P TT, PT #### [facility] [address] [place] [address] Dr. Joselyn Coffey ERUAHD A micrscopic examina tion will be performed if indicated. Normal [facility] Comment on above: Performed By: #### P TT, PT #### [facility] [address] [place] [address] Dr. Joselyn Coffey Glucose Ql (U) 100 mg/dl Abnormal NEGATIVE [facility] Comment on above: Performed By: #### P TT, PT #### [facility] [address] [place] [address] Dr. Joselyn Coffey Hemoglobin Ql (U) Negative Normal NEGATIVE [facility] Comment on above: Performed By: #### P TT, PT #### [facility] [address] [place] [address] Dr. Joselyn Coffey Ketones Ql (U) Negative Normal NEGATIVE [facility] Comment on above: Performed By: #### P TT, PT #### [facility] [address] [place] [address] Dr. Joselyn Coffey LEUKOCYTES Negative Normal NEGATIVE [facility] Comment on above: Performed By: #### P TT, PT #### [facility] [address] [place] [address] Dr. Joselyn Coffey Nitrite Ql (U) Negative Normal NEGATIVE [facility] Comment on above: Performed By: #### P TT, PT #### [facility] [address] [place] [address] Dr. Joselyn Coffey pH (U) 6.0 [pH] Normal 5-9 [facility] Comment on above: Performed By: #### P TT, PT #### [facility] [address] [place] [address] Dr. Joselyn Coffey SPEC GRAVITY 1.015 Normal 1.005-<=1.02 5 [facility] Comment on above: Performed By: #### P TT, PT #### [facility] [address] [place] [address] Dr. Joselyn Coffey UA PROTEIN TRACE Normal NEGATIVE/ TRACE [facility] Comment on above: Performed By: #### P TT, PT #### [facility] [address] [place] [address] Dr. Joselyn Coffey UR MICRO IND NOT INDICATED Normal [facility] Comment on above: Performed By: #### P TT, PT #### [facility] [address] [place] [address] Dr. Joselyn Coffey Urobilinogen Qn (U) 8 {Mercedes'U}/dL Abnormal 0.2 - 1.0 [facility] Comment on above: Performed By: #### P TT, PT #### [facility] [address] [place] [address] Dr. Joselyn Coffey PROF 14(COMP METB)on 023 Albumin [Mass/Vol] 2.6 g/dL Critically low 3.4-5.0 [facility] Comment on above: Performed By: #### C ROSALINA, CMP #### [facility] [address] [address] [address] Joselyn Coffey Albumin/Globulin [Mass ratio] 0.7 {ratio} Normal [facility] Comment on above: Performed By: #### C ROSALINA, CMP #### [facility] [address] [address] [address] Joselyn Coffey ALP [Catalytic activity/Vol] 115 U/L Normal 46-116 [facility] Comment on above: Performed By: #### C ROSALINA, CMP #### [facility] [address] [address] [address] Joselyn Coffey ALT [Catalytic activity/Vol] 44 U/L Normal 16-63 [facility] Comment on above: Performed By: #### C ROSALINA, CMP #### [facility] [address] [address] [address] Joselyn Coffey Anion gap [Moles/Vol] 9.6 mmol/L Normal [facility] Comment on above: Performed By: #### C ROSALINA, CMP #### [facility] [address] [address] [address] Joselyn Coffey AST [Catalytic activity/Vol] 52 U/L Critically high 15-37 [facility] Comment on above: Performed By: #### C ROSALINA, CMP #### [facility] [address] [address] [address] Joselyn Coffey Bilirubin [Mass/Vol] 2.6 mg/dL Critically high 0.2-1.0 [facility] Comment on above: Performed By: #### C ROSALINA, CMP #### [facility] [address] [address] [address] Joselyn Coffey Calcium [Mass/Vol] 8.3 mg/dL Critically low 8.5-10.1 [facility] Comment on above: Performed By: #### C MADM, CMP #### [facility] [address] [address] [address] Joselyn Coffey Chloride [Moles/Vol] 99 mmol/L Normal 98-107 [facility] Comment on above: Performed By: #### C MADM, CMP #### [facility] [address] [address] [address] Joselyn Coffey CO2 [Moles/Vol] 26.6 mmol/L Normal 21.0-32.0 [facility] Comment on above: Performed By: #### C MADM, CMP #### [facility] [address] [address] [address] Joselyn Coffey Creatinine [Mass/Vol] 0.77 mg/dL Normal 0.70-1.30 [facility] Comment on above: Performed By: #### C CARLYNM, CMP #### [facility] [address] [place] [address] Dr. Joselyn Coffey EGFR-AF BULGARIAN >60 Normal >=60 [facility] Comment on above: Performed By: #### C CARLYNM, CMP #### [facility] [address] [address] [address] Joselyn Coffey EGFR-NON AF BULGARIAN >60 Normal >=60 [facility] Comment on above: Performed By: #### C CARLYNM, CMP #### [facility] [address] [address] [address] Joselyn Coffey Globulin (S) [Mass/Vol] 3.5 g/dL Normal [facility] Comment on above: Performed By: #### C CARLYNM, CMP #### [facility] [address] [address] [address] Joselyn Coffey Glucose [Mass/Vol] 123 mg/dL Critically high 74-106 [facility] Comment on above: Performed By: #### C MADM, CMP #### [facility] [address] [address] [address] Joselyn Coffey Potassium [Moles/Vol] 4.2 mmol/L Normal 3.5-5.1 [facility] Comment on above: Performed By: #### C MADM, CMP #### [facility] [address] [place] [address] Dr. Joselyn Coffey Protein [Mass/Vol] 6.1 g/dL Critically low 6.4-8.2 Th [facility] Comment on above: Performed By: #### C MADM, CMP #### [facility] [address] [place] [address] Dr. Joselyn Coffey Sodium [Moles/Vol] 131 mmol/L Critically low 136-145 Th [facility] Comment on above: Performed By: #### C CARLYNM, CMP #### [facility] [address] [place] [address] Dr. Joselyn Coffey Urea nitrogen [Mass/Vol] 11.0 mg/dL Normal 7.0-18.0 [facility] Comment on above: Performed By: #### C ROSALINA, CMP #### [facility] [address] [place] [address] Dr. Joselyn Coffey Urea nitrogen/Creatinine [Mass ratio] 14.3 mg/mg Normal [facility] Comment on above: Performed By: #### C ROSALINA, CMP #### [facility] [address] [place] [address] Dr. Joselyn Coffey TYPE AND SCREENon 11-13-2022 TYPE AND SCREEN Negative Normal [facility] Comment on above: Performed By: #### C ESTHELA #### [facility] [address] [place] [address] Dr. Joselyn Coffey CBC W MANUAL DIFFon 11-01-19 23 ATYPICAL LYMPH # Normal [facility] Comment on above: Performed By: #### C ESTHELA #### [facility] [address] [place] [address] Dr. Joselyn Coffey ATYPICAL LYMPH % Normal [facility] Comment on above: Performed By: #### C ESTHELA #### [facility] [address] [place] [address] Dr. Joselyn MARMOLEJO # Normal 0.0-0.3 [facility] Comment on above: Performed By: #### Sammy PROCTOR #### [facility] [address] [place] [address] Dr. Yilan Coffey BAND % Normal 0-5 [facility] Comment on above: Performed By: #### C BCMAN #### [facility] [address] [place] [address] Dr. Joselyn Coffey BASOM # 0.00 103/ul Normal 0.00-0.10 [facility] Comment on above: Performed By: #### C BCMAN #### [facility] [address] [place] [address] Dr. Joselyn Coffey BASOM % 0.0 % Critically low 0.2-2.0 [facility] Comment on above: Performed By: #### C BCMAN #### [facility] [address] [place] [address] Dr. Joselyn Coffey BLAST # Normal [facility] [facility] Comment on above: Performed By: #### C ESTHELA #### [facility] [address] [place] [address] Dr. Joselyn Coffey BLAST % Normal [facility] Comment on above: Performed By: #### C BCDEV #### [facility] [address] [place] [address] Dr. Joselyn Coffey CORRECTED WBC Normal 4.0-11.0 [facility] Comment on above: Performed By: #### C BCDEV #### [facility] [address] [place] [address] Dr. Joselyn Coffey EOS # 0.00 103/ul Normal 0.00-0.70 [facility] Comment on above: Performed By: #### C BCDEV #### [facility] [address] [place] [address] Dr. Joselyn Coffey EOS% 0.0 % Critically low 0.9-7.0 [facility] Comment on above: Performed By: #### C BCMAN #### [facility] [address] [place] [address] Dr. Joselyn Coffey HCT 36.5 % Critically low 42.0-54.0 [facility] Comment on above: Performed By: #### C BCDEV #### [facility] [address] [place] [address] Dr. Joselyn Coffey HGB 13.2 g/dl Critically low 14.0-18.0 [facility] Comment on above: Performed By: #### C ESTHELA #### [facility] [address] [place] [address] Dr. Joselyn Coffey LYMPHM # 0.35 103/ul Critically low 1.20-3.80 [facility] Comment on above: Performed By: #### C ESTHELA #### [facility] [address] [place] [address] Dr. Joselyn Coffey LYMPHM% 7.0 % Critically low 20.5-60.0 [facility] Comment on above: Performed By: #### C ESTHELA #### [facility] [address] [place] [address] Dr. Joselyn Coffey MCH 31.9 pg Normal 25.9-34.0 [facility] Comment on above: Performed By: #### C ESTHELA #### [facility] [address] [place] [address] Dr. Joselyn Coffey MCHC 36.2 g/dl Critically high 29.9-35.2 [facility] Comment on above: Performed By: #### C ESTHELA #### [facility] [address] [place] [address] Dr. Joselyn Coffey MCV 88.2 fL Normal 80.0-94.0 [facility] Comment on above: Performed By: #### C ESTHELA #### [facility] [address] [place] [address] Dr. Joselyn Coffey METAMYELOCYTE # Normal [facility] Comment on above: Performed By: #### C ESTHELA #### [facility] [address] [place] [address] Dr. Joselyn Coffey METAMYELOCYTE % Normal [facility] Comment on above: Performed By: #### C ESTHELA #### [facility] [address] [place] [address] Dr. Joselyn Coffey MONOM# 0.35 103/ul Normal 0.30-0.80 [facility] Comment on above: Performed By: #### C ESTHELA #### [facility] [address] [address] [address] Joselyn Coffey MONOM% 7.0 % Normal 1.7-12.0 [facility] Comment on above: Performed By: #### C ESTHELA #### [facility] [address] [place] [address] Dr. Joselyn Coffey MPV 10.7 fL Normal 9.5-13.5 [facility] Comment on above: Performed By: #### C ESTHELA #### [facility] [address] [place] [address] Dr. Joselyn Coffey MYELOCYTE # Normal [facility] Comment on above: Performed By: #### C ESTHELA #### [facility] [address] [place] [address] Dr. Joselyn Coffey MYELOCYTE % Normal [facility] Comment on above: Performed By: #### C ESTHELA #### [facility] [address] [place] [address] Dr. Joselyn Coffey NRBC Normal [facility] Comment on above: Performed By: #### C ESTHELA #### [facility] [address] [place] [address] Dr. Joselyn oCffey PLT 79 103/ul Critically low 150-450 [facility] Comment on above: Performed By: #### C ESTHELA #### [facility] [address] [place] [address] Dr. Joselyn Coffey RBC 4.14 106/ul Critically low 4.70-6.10 [facility] Comment on above: Performed By: #### C ESTHEAL #### [facility] [address] [place] [address] Dr. Joselyn Coffey RDW 13.2 % Normal 11.0-15.0 [facility] Comment on above: Performed By: #### C ESTHELA #### [facility] [address] [place] [address] Dr. Joselyn Coffey SEG # 4.30 103/ul Normal 1.40-6.50 [facility] Comment on above: Performed By: #### C ESTHELA #### [facility] [address] [place] [address] Dr. Joselyn Coffey SEG % 86.0 % Critically high 43.0-75.0 [facility] Comment on above: Performed By: #### C ESTHELA #### [facility] [address] [place] [address] Dr. Joselyn Coffey WBC 5.0 103/ul Normal 4.0-11.0 [facility] Comment on above: Performed By: #### C ESTHELA #### [facility] [address] [place] [address] Dr. Joselyn Coffey MRSA NARES #1on 11-01-2022 MRSA NARES #1 Culture Observations : NO GROWTH OF MRSA AT 48 HOURS. Normal [facility] Comment on above: Performed By: #### C ESTHELA #### [facility] [address] [place] [address] Dr. Joselyn Coffey PROF CHEM 8 (BAS METB)on Anion gap [Moles/Vol] 12.7 mmol/L Normal Th [facility] Comment on above: Performed By: #### P TT, PT #### [facility] [address] [place] [address] Dr. Joselyn Coffey Calcium [Mass/Vol] 8.9 mg/dL Normal 8.5-10.1 [facility] Comment on above: Performed By: #### P TT, PT #### [facility] [address] [place] [address] Dr. Joselyn Coffey Chloride [Moles/Vol] 100 mmol/L Normal 98-107 [facility] Comment on above: Performed By: #### P TT, PT #### [facility] [address] [place] [address] Dr. Joselyn Coffey CO2 [Moles/Vol] 29.0 mmol/L Normal 21.0-32.0 [facility] Comment on above: Performed By: #### P TT, PT #### [facility] [address] [place] [address] Dr. Joselyn Coffey Creatinine [Mass/Vol] 1.06 mg/dL Normal 0.70-1.30 [facility] Comment on above: Performed By: #### P TT, PT #### [facility] [address] [place] [address] Dr. Joselyn Coffey EGFR-AF BULGARIAN >60 Normal >=60 [facility] Comment on above: Performed By: #### P TT, PT #### [facility] [address] [address] [address] Joselyn Coffey EGFR-NON AF BULGARIAN >60 Normal >=60 [facility] Comment on above: Performed By: #### P TT, PT #### [facility] [address] [address] [address] Joselyn Coffey Glucose [Mass/Vol] 278 mg/dL Critically high 74-[address] [facility] Comment on above: Performed By: #### P TT, PT #### [facility] [address] [place] [address] Dr. Joselyn Coffey Potassium [Moles/Vol] 4.7 mmol/L Normal 3.5-5.1 [facility] Comment on above: Performed By: #### P TT, PT #### [facility] [address] [place] [address] Dr. Joselyn Coffey Sodium [Moles/Vol] 137 mmol/L Normal 136-145 [facility] Comment on above: Performed By: #### P TT, PT #### [facility] [address] [place] [address] Dr. Joselyn Coffey Urea nitrogen [Mass/Vol] 17.0 mg/dL Normal 7.0-18.0 [facility] Comment on above: Performed By: #### P TT, PT #### [facility] [address] [place] [address] Dr. Joselyn Coffey Urea nitrogen/Creatinine [Mass ratio] 16.0 mg/mg Normal [facility] Comment on above: Performed By: #### P TT, PT #### [facility] [address] [place] [address] Dr. Joselyn Coffey PROTIMEon 11-01-2022 INR Coag (PPP) [Relative time] 1.10 {INR} Normal [facility] Comment on above: Performed By: #### P TT, PT #### [facility] [address] [address] [address] Joselyn Coffey INR GUIDELINES SEE BELOW Normal [facility] Comment on above: Result Comment: SNOW RED INR: 2.0 - 3.0 CONDITIONS NOT LISTED BELOW 2.5 - 3.5 FOR PROSTHETIC HEART VALVE REPLACEMENT 2.5 - 3.5 RECURRENT THROMBOSIS Performed By: #### P TT, PT #### [facility] [address] [place] [address] Dr. Joselyn Coffey PT Coag (PPP) [Time] 11.6 s Normal 9.0-11.6 [facility] Comment on above: Performed By: #### P TT, PT #### [facility] [address] [place] [address] Dr. Joselyn Coffey PTTon 11-01-2022 aPTT Coag (Bld) [Time] 29.8 s Normal 22.3-36.2 [facility] Comment on above: Performed By: #### P TT, PT #### [facility] [address] [place] [address] Dr. Joselyn Coffey CTA ABD MARY JANE [...] ANDREA ARTEAGA Date: 2022-10-20 15:34 Normal [facility] BONE MARROW SCREENon 022 BONE MARROW SCR SEE BONE MARROW SPEC IAL REPORT FORM Normal [facility] Comment on above: Performed By: #### 5 0970 #### [facility] [address] [place] [address], [facility] CBC W/DIFFon 11-09-2021 ABS IMM GRANS 0.0 10*3/uL Normal 0.0-0.2 [facility] Comment on above: Performed By: #### 5 102, 65308 #### [facility] [address] [place] [address], [facility] ABS NEUTROPHILS 2.4 10*3/uL Normal 1.6-7.6 [facility] Comment on above: Performed By: #### 102, 30185 #### [facility] [address] [place] [address], [facility] ANISO Moderate Normal [facility] Comment on above: Performed By: #### 5 102, 49300 #### [facility] [address] [place] [address], [facility] Basophils (Bld) [#/Vol] 0.0 10*3/uL Normal 0.0-0.2 [facility] Comment on above: Performed By: #### 5 102, 78897 #### [facility] [address] [place] [address], [facility] Basophils/100 WBC (Bld) 0.6 % Normal 0.0-1.0 [facility] Comment on above: Performed By: #### 5 102, 71772 #### [facility] [address] [place] [address], [facility] ELLIPTOCYTES Slight Normal [facility] Comment on above: Performed By: #### 5 102, 94516 #### [facility] [address] [place] [address], [facility] Eosinophils (Bld) [#/Vol] 0.0 10*3/uL Normal 0.0-0.5 [facility] Comment on above: Performed By: #### 5 102, 93907 #### [facility] [address] [place] [address], [place] Eosinophils/100 WBC (Bld) 1.2 % Normal 0.0-6.0 [facility] Comment on above: Performed By: #### 5 102, 75085 #### [facility] [address] [place] [address], [facility] Erythrocyte distribution width (RBC) [Ratio] 26.7 % High 11.5-15.0 [facility] Comment on above: Performed By: #### 5 102, 53838 #### [facility] [address] [place] [address], [facility] Hematocrit (Bld) [Volume fraction] 37.1 % Low 39.0-50.0 [facility] Comment on above: Performed By: #### 5 102, 50178 #### [facility] [address] [facility] [place] [address], [facility] Hemoglobin (Bld) [Mass/Vol] 11.1 g/dL Low 13.0-17.0 [facility] Comment on above: Performed By: #### 5 102, 71369 #### [facility] [address] [place] [place] [address], [facility] IMM PLATELET FRAC 4.6 % Normal 0.8-6.3 [facility] Comment on above: Performed By: #### 5 102, 10785 #### [facility] [address] [facility] [place] [address], [facility] IMMATURE GRANS 0.3 % Normal 0.0-1.0 [facility] Comment on above: Performed By: #### 5 102, 47183 #### [facility] [address] [place] [address], [facility] Lymphocytes (Bld) [#/Vol] 0.5 10*3/uL Low 1.2-4.0 [facility] Comment on above: Performed By: #### 5 102, 68326 #### [facility] [address] [place] [address], [facility] Lymphocytes/100 WBC (Bld) 13.5 % Low 20.0-45.0 [facility] Comment on above: Performed By: #### 5 102, 17182 #### [facility] [address] [place] [address], [facility] MCH (RBC) [Entitic mass] 26.9 pg Low 27.0-33.0 [facility] Comment on above: Performed By: #### 5 102, 20435 #### [facility] [address] [place] [address], [facility] MCHC (RBC) [Mass/Vol] 29.9 g/dL Low 32.0-35.0 [facility] Comment on above: Performed By: #### 102, 72839 #### [facility] [address] [place] [id number], [facility] MCV (RBC) [Entitic vol] 90.0 fL Normal 82.0-98.0 [facility] Comment on above: Performed By: #### 5 102, 92107 #### [facility] [address] [place] [address], [facility] Monocytes (Bld) [#/Vol] 0.5 10*3/uL Normal 0.1-1.0 [facility] Comment on above: Performed By: #### 5 102, 13800 #### [facility] [address] [place] [address], [facility] MONOS 14.0 % High 5.0-12.0 [facility] Comment on above: Performed By: #### 5 102, 94567 #### [facility] [address] [place] [address], [facility] Neutrophils/100 WBC (Bld) 70.4 % Normal 40.0-72.0 [facility] Comment on above: Performed By: #### 5 102, 33336 #### [facility] [address] [place] [address], [facility] Nucleated RBC/100 WBC (Bld) [Ratio] 0 % Normal 0-0 [facility] Comment on above: Performed By: #### 5 102, 41818 #### [facility] [address] [place] [address], [facility] OVALOCYTES Slight Normal [facility] Comment on above: Performed By: #### 5 102, 05296 #### [facility] [address] [place] [address], [facility] PLAT CNT 91 10*3/uL Low 150-400 [facility] Comment on above: Performed By: #### 5 102, 48196 #### [facility] [address] [facility] [place] [address], [facility] POIK Moderate Normal [facility] Comment on above: Performed By: #### 5 102, 39460 #### [facility] [address] [place] [address], [facility] RBC (Bld) [#/Vol] 4.12 10*6/uL Low 4.20-5.70 [facility] Comment on above: Performed By: #### 5 102, 45716 #### [facility] [address] [facility] [place] [address], [facility] WBC (Bld) [#/Vol] 3.42 10*3/uL Low 4.00-10.60 [facility] Comment on above: Performed By: #### 5 102, 07117 #### [facility] [address] [facility]. [address] COMP METABOLIC PANELon 11-09 Albumin [Mass/Vol] 4.0 g/dL Normal 3.5-5.7 [facility] Comment on above: Performed By: #### 0 0121, 16942, 75028, 29572, 28364, 12711 #### [facility] [address] [place] [address], [facility] ALKALINE PHOSPH 64 IU/L Normal 34-104 [facility] Comment on above: Performed By: #### 0 0121, 97466, 20851, 18273, 00365, 88631 #### [facility] [address] [place] [address], [place] ALT [Catalytic activity/Vol] 39 U/L Normal 7-52 [facility] Comment on above: Performed By: #### 0 0121, 86174, 12107, 31280, 91896, 79074 #### [facility] [address] [place] [address], [place] AST [Catalytic activity/Vol] 39 U/L Normal 13-39 [facility] Comment on above: Performed By: #### 0 0121, 54776, 99179, 52947, 27877, 57251 #### [facility] [address] [place] [address], [place] Bilirubin [Mass/Vol] 0.6 mg/dL Normal 0.3-1.0 [facility] Comment on above: Performed By: #### 0 0121, 81558, 24793, 15745, 51518, 47382 #### [facility] [address] [place] [address], [place] Calcium [Mass/Vol] 9.2 mg/dL Normal 8.6-10.3 [facility] Comment on above: Performed By: #### 0 0121, 18065, 27353, 44335, 50118, 89638 #### [facility] [address] [place] [address], [place] Chloride [Moles/Vol] 103 mmol/L Normal 98-107 [facility] Comment on above: Performed By: #### 0 0121, 23283, 90237, 73610, 05409, 23144 #### [facility] [address] [place] [address], [place] CO2 [Moles/Vol] 27 mmol/L Normal 21-31 [facility] Comment on above: Performed By: #### 0 0121, 09684, 87721, 14246, 54263, 04515 #### [facility] [address] [place] [address], [place] Creatinine [Mass/Vol] 0.80 mg/dL Normal 0.70-1.30 [facility] Comment on above: Performed By: #### 0 0121, 69445, 66651, 78525, 79891, 18519 #### [facility] [address] [place] [address], [place] GFR/1.73 sq M.predicted among blacks MDRD (S/P/Bld) [Vol rate/Area] mL/min/{1.73_m2} Normal >60 [facility] Comment on above: Result Comment: Calc ulation may not be valid for patients over 70 years Performed By: #### 0 0121, 99482, 73336, 18787, 30007, 29008 #### [facility] [address] [place] [address], [place] GFR/1.73 sq M.predicted among non-blacks MDRD (S/P/Bld) [Vol rate/Area] mL/min/{1.73_m2} Normal >60 [facility] Comment on above: Result Comment: Calc ulation may not be valid for patients over 70 years Performed By: #### 0 0121, 39881, 47707, 38911, 15998, 38004 #### [facility] [address] [place] [address], [place] Glucose [Mass/Vol] 78 mg/dL Normal 70-100 [facility] Comment on above: Performed By: #### 0 0121, 77995, 24884, 13867, 49932, 97634 #### [facility] [address] [place] [address], [place] Potassium [Moles/Vol] 3.9 mmol/L Normal 3.5-5.1 [facility] Comment on above: Performed By: #### 0 0121, 34814, 17740, 88279, 92217, 75817 #### [facility] [address] [place] [address], [facility] Protein [Mass/Vol] 7.3 g/dL Normal 6.0-8.3 [facility] Comment on above: Performed By: #### 0 0121, 70516, 44641, 39830, 67909, 71134 #### [facility] [address] [place] [address], [facility] Sodium [Moles/Vol] 137 mmol/L Normal 136-145 [facility] Comment on above: Performed By: #### 0 0121, 02274, 84196, 45144, 22306, 09879 #### [facility] [address] [facility] [place] [address], [facility] Urea nitrogen [Mass/Vol] 11 mg/dL Normal 7-25 [facility] Comment on above: Performed By: #### 0 0121, 88537, 21149, 21378, 97837, 23422 #### [facility] [address] [facility] [address], [facility] FERRITINon 11-09-2021 Ferritin [Mass/Vol] 34 ng/mL Normal 24-336 [facility] Comment on above: Performed By: #### 0 0121, 66569, 74059, 30534, 45636, 88746 #### [facility] [address] [place] [address], [facility] FOLATE SERUMon 11-09-2021 SERUM FOLATE 12.15 ng/mL Normal 6.60-1000.00 [facility] Comment on above: Result Comment: Norm al range reflects World Health Organization International Standard Performed By: #### 0 0121, 90224, 15160, 18975, 89227, 44304 #### [facility] [address] [place] [address], [facility] HAPTOGLOBINon 11-09-2021 HAPTOGLOBIN 43 mg/dL Normal 26-164 [facility] Comment on above: Performed By: #### 5 102, 03011 #### [facility] [address] [place] [address], [facility] HEMATOLOGY COMPLETE EVALUATI ON siPARDIGMon 11-09-2021 RESULT Results faxed to ordering physician and sent to HIM Normal [facility] Comment on above: Result Comment: Test performed by [facility] * [address], [address] * [place], [place] * [phone] Joiner: Aguilar Winston M.D. RESULTS FAXED TO [phone] Performed By: #### 5 102, 36554 #### [facility] [address] [facility]. [address] LDH BLOODon 11-09-2021 LDH 114 Units/L Low 140-271 [facility] Comment on above: Performed By: #### 0 0121, 13881, 04767, 55047, 03587, 21022 #### [facility] [address] [facility]. [address] RETICULOCYTE PANELon 022 ABSOLUTE RETICULOCYTE 0.0548 10*6/uL Normal 0.02 50-0.100 0 [facility] Comment on above: Performed By: #### 5 102, 08014 #### [facility] [address] [facility] [place] [address], [facility] IMMATURE RETICULOCYTE FRACTION 11.0 % Normal 2.0-16.0 [facility] Comment on above: Performed By: #### 5 102, 15879 #### [facility] [address] [place] [place] [address], [facility] RETIC COUNT 1.33 % Normal 0.50-1.80 [facility] Comment on above: Performed By: #### 5 102, 84432 #### [facility] [address] [facility] [place] [address], [facility] RETICULOCYTE HEMOGLOBIN 42.0 pg High 28.0-36.0 [facility] Comment on above: Performed By: #### 5 0103, 08042 #### [facility] [address] [facility] [place] [address], [facility] TIBC- INCLUDES IRONon 2021 FE SATURATION 16 % Low 20-50 [facility] Comment on above: Performed By: #### 0 0121, 63641, 01057, 26257, 14505, 28655 #### [facility] [address] [facility] [place] [address], [facility] Iron [Mass/Vol] 67 ug/dL Normal 50-212 [facility] Comment on above: Performed By: #### 0 0121, 72811, 81154, 98774, 28233, 36336 #### [facility] [address] [facility] [place] [address], [facility] TIBC 420 mcg/dL Normal 250-450 [facility] Comment on above: Performed By: #### 0 0121, 09861, 92875, 01636, 43173, 37626 #### [facility] [address] [facility] [address], [facility] UIBC 353 mcg/dL Normal 155-355 [facility] Comment on above: Performed By: #### 0 0121, 81378, 27430, 23917, 39587, 51159 #### [facility] [address] [facility] [place] [address], [facility] VITAMIN B12on 11-09-2021 Cobalamin (Vitamin B12) [Mass/Vol] 733 pg/mL Normal 180-914 [facility] Comment on above: Result Comment: REFE RENCE RANGES: 180-914 pg/mL Normal 145-179 pg/mL Indeterminate <145 pg/mL Deficient Performed By: #### 0 0121, 69623, 83048, 06788, 13412, 04893 #### [facility] [address] CBC W/DIFFon 09-15-2021 ABS IMM GRANS 0.0 10*3/uL Normal 0.0-0.2 [facility] Comment on above: Performed By: #### 5 0103 #### [facility] [address] ABS NEUTROPHILS 1.7 10*3/uL Normal 1.6-7.6 [facility] Comment on above: Performed By: #### 5 0103 #### [facility] [address] ANISO Moderate Normal [facility] Comment on above: Performed By: #### 5 102 #### [facility] [address] Basophils (Bld) [#/Vol] 0.0 10*3/uL Normal 0.0-0.2 [facility] Comment on above: Performed By: #### 5 0103 #### [facility] [address] Basophils/100 WBC (Bld) 0.5 % Normal 0.0-1.0 [facility] Comment on above: Performed By: #### 5 0103 #### [facility] [address] ELLIPTOCYTES Slight Normal [facility] Comment on above: Performed By: #### 5 0103 #### [facility] [address] Eosinophils (Bld) [#/Vol] 0.0 10*3/uL Normal 0.0-0.5 [facility] Comment on above: Performed By: #### 5 3 #### [facility] 3000 [place] [address], [facility] Eosinophils/100 WBC (Bld) 0.9 % Normal 0.0-6.0 [facility] Comment on above: Performed By: #### 5 0103 #### [facility] 3000 [facility] [address] Erythrocyte distribution width (RBC) [Ratio] 18.6 % High 11.5-15.0 [facility] Comment on above: Performed By: #### 5 0103 #### [facility] [address] Hematocrit (Bld) [Volume fraction] 24.4 % Low 39.0-50.0 [facility] Comment on above: Performed By: #### 5 0103 #### [facility] 3000 [facility]. [address] Hemoglobin (Bld) [Mass/Vol] 6.8 g/dL Low 13.0-17.0 [facility] Comment on above: Performed By: #### 5 0103 #### [facility] [address] IMM PLATELET FRAC 6.0 % Normal 0.8-6.3 [facility] Comment on above: Performed By: #### 5 0103 #### [facility] 3000 [facility]. [address] IMMATURE GRANS 0.0 % Normal 0.0-1.0 [facility] Comment on above: Performed By: #### 5 0103 #### [facility] [address] [place] [address], [facility] Lymphocytes (Bld) [#/Vol] 0.2 10*3/uL Low 1.2-4.0 [facility] Comment on above: Performed By: #### 5 0103 #### [facility] [address] [place] [address], [facility] Lymphocytes/100 WBC (Bld) 10.9 % Low 20.0-45.0 [facility] Comment on above: Performed By: #### 5 0103 #### [facility] 3000 [facility] [place] [address], [facility] MCH (RBC) [Entitic mass] 22.1 pg Low 27.0-33.0 [facility] Comment on above: Performed By: #### 5 0103 #### [facility] 3000 [facility]. [address] MCHC (RBC) [Mass/Vol] 27.9 g/dL Low 32.0-35.0 [facility] Comment on above: Performed By: #### 5 0103 #### [facility] 3000 [facility] [place] [address], [facility] MCV (RBC) [Entitic vol] 79.2 fL Low 82.0-98.0 [facility] Comment on above: Performed By: #### 5 0103 #### [facility] 3000 [facility] [place] [address], [facility] Monocytes (Bld) [#/Vol] 0.3 10*3/uL Normal 0.1-1.0 [facility] Comment on above: Performed By: #### 5 0103 #### [facility] 3000 [facility]. [address] MONOS 12.2 % High 5.0-12.0 [facility] Comment on above: Performed By: #### 5 0103 #### [facility] 3000 [facility] [place] [address], [facility] Neutrophils/100 WBC (Bld) 75.5 % High 40.0-72.0 [facility] Comment on above: Performed By: #### 5 3 #### [facility] 3000 [facility] [place] [address], [facility] Nucleated RBC/100 WBC (Bld) [Ratio] 0 % Normal 0-0 [facility] Comment on above: Performed By: #### 5 0103 #### [facility] [address] [place] [address], [facility] OVALOCYTES Slight Normal [facility] Comment on above: Performed By: #### 5 0103 #### [facility] [address] [place] [address], [facility] PLAT CNT 91 10*3/uL Low 150-400 [facility] Comment on above: Performed By: #### 5 0103 #### [facility] [address] [place] [address], [facility] POIK Moderate Normal [facility] Comment on above: Performed By: #### 5 0103 #### [facility] [address] [place] [address], [facility] POLY Slight Normal [facility] Comment on above: Performed By: #### 5 0103 #### [facility] [address] [place] [address], [facility] RBC (Bld) [#/Vol] 3.08 10*6/uL Low 4.20-5.70 [facility] Comment on above: Performed By: #### 5 0103 #### [facility] [address] WBC (Bld) [#/Vol] 2.21 10*3/uL Low 4.00-10.60 [facility] Comment on above: Performed By: #### 5 0103 #### [facility] [address] [place] [address], [facility] COMP METABOLIC PANELon 09-15 Albumin [Mass/Vol] 3.6 g/dL Normal 3.5-5.7 [facility] Comment on above: Performed By: #### 5 102, [id number] #### [facility] [address] [place] [address], [place] ALKALINE PHOSPH 57 IU/L Normal 34-104 [facility] Comment on above: Performed By: #### 5 102, [id number] #### [facility] [address] [place] [address], [place] ALT [Catalytic activity/Vol] 24 U/L Normal 7-52 [facility] Comment on above: Performed By: #### 5 102, [id number] #### [facility] [address] [place] [address], [place] AST [Catalytic activity/Vol] 29 U/L Normal 13-39 [facility] Comment on above: Performed By: #### 5 102, [id number] #### [facility] [address] [place] [address], [place] Bilirubin [Mass/Vol] 0.5 mg/dL Normal 0.3-1.0 [facility] Comment on above: Performed By: #### 5 102, [id number] #### [facility] [address] [place] [address], [place] Calcium [Mass/Vol] 8.8 mg/dL Normal 8.6-10.3 [facility] Comment on above: Performed By: #### 5 102, [id number] #### [facility] [address] [place] [address], [place] Chloride [Moles/Vol] 104 mmol/L Normal 98-107 [facility] Comment on above: Performed By: #### 5 102, [id number] #### [facility] [address] [place] [address], [place] CO2 [Moles/Vol] 26 mmol/L Normal 21-31 [facility] Comment on above: Performed By: #### 5 102, [id number] #### [facility] [address] [place] [address], [place] Creatinine [Mass/Vol] 0.79 mg/dL Normal 0.70-1.30 [facility] Comment on above: Performed By: #### 5 010, [id number] #### [facility] [address] [place] [address], [place] GFR/1.73 sq M.predicted among blacks MDRD (S/P/Bld) [Vol rate/Area] mL/min/{1.73_m2} Normal >60 [facility] Comment on above: Result Comment: Calc ulation may not be valid for patients over 70 years Performed By: #### 5 010, [id number] #### [facility] [address] [place] [address], [place] GFR/1.73 sq M.predicted among non-blacks MDRD (S/P/Bld) [Vol rate/Area] mL/min/{1.73_m2} Normal >60 [facility] Comment on above: Result Comment: Calc ulation may not be valid for patients over 70 years Performed By: #### 5 010, [id number] #### [facility] [address] [place] [address], [place] Glucose [Mass/Vol] 123 mg/dL High 70-100 [facility] Comment on above: Performed By: #### 5 010, [id number] #### [facility] [address] [place] [address], [place] Potassium [Moles/Vol] 3.8 mmol/L Normal 3.5-5.1 [facility] Comment on above: Performed By: #### 5 010, [id number] #### [facility] [address] [place] [address], [place] Protein [Mass/Vol] 6.8 g/dL Normal 6.0-8.3 [facility] Comment on above: Performed By: #### 5 010, [id number] #### [facility] [address] [place] [address], [place] Sodium [Moles/Vol] 137 mmol/L Normal 136-145 [facility] Comment on above: Performed By: #### 5 0103, [id number] #### [facility] [address] Urea nitrogen [Mass/Vol] 10 mg/dL Normal 7-25 [facility] Comment on above: Performed By: #### 5 0103, [id number] #### [facility] [address] Vital Signs Date Time Vital Sign Value Performing Clinician Facility 07-19-2023 13:00-0400 Diastolic blood pressure 74 mm[Hg] Robert Gomez Other [facility] Other 07-19-2023 13:00-0400 SaO2% (BldA) [Mass fraction] 99 % Robert Gomez Other [facility] Other 07-19-2023 13:00-0400 Systolic blood pressure 136 mm[Hg] Robert Gomez Other [facility] Other 05-09-2023 09:23-0400 Blood Pressure Location Erwin Hurd [facility] 05-09-2023 09:23-0400 Diastolic blood pressure 63 mm[Hg] Erwin Hurd [facility] 05-09-2023 09:23-0400 Heart rate 97 /min Erwin Vickey [facility] 05-09-2023 09:23-0400 SaO2% (BldA) [Mass fraction] 99 % Mohharish Vickey [facility] 05-09-2023 09:23-0400 Systolic blood pressure 129 mm[Hg] Ivaniaharish Vickey [facility] 04-08-2023 08:29-0400 Diastolic blood pressure 56 mm[Hg] Erwin Hurd [facility] 04-08-2023 08:29-0400 Heart rate 98 /min Erwin Hurd [facility] 04-08-2023 08:29-0400 Mean blood pressure 82 mm[Hg] Erwin Hurd [facility] 04-08-2023 08:29-0400 Systolic blood pressure 134 mm[Hg] Erwin Hurd [facility] 04-08-2023 08:29-0400 Heart rate 100 /min Erwin Hurd [facility] 04-08-2023 08:29-0400 SaO2% (BldA) [Mass fraction] 100 % Erwin Hurd [facility] 04-08-2023 08:29-0400 Respiratory rate 17 /min Erwin Hurd [facility] 04-08-2023 08:29-0400 Diastolic blood pressure 66 mm[Hg] Erwin Hurd [facility] 04-08-2023 08:29-0400 Mean blood pressure 85 mm[Hg] Erwin Hurd [facility] 04-08-2023 08:29-0400 Systolic blood pressure 124 mm[Hg] Erwin Hurd [facility] 03-10-2023 12:03-0400 Hourly Rounding [facility] 03-10-2023 12:03-0400 Promise to Return [facility] 03-10-2023 11:37-0400 Heart rate 75 /min [facility] 03-10-2023 11:37-0400 SaO2% (BldA) [Mass fraction] 100 % [facility] 03-10-2023 11:37-0400 Body temperature 97.7 [degF] [facility] 03-10-2023 11:37-0400 Diastolic blood pressure 54 mm[Hg] [facility] 03-10-2023 11:37-0400 Mean blood pressure 81 mm[Hg] [facility] 03-10-2023 11:37-0400 Systolic blood pressure 136 mm[Hg] [facility] 03-10-2023 11:00-0400 [facility] Rounding [facility] 03-10-2023 11:00-0400 [facility] 03-10-2023 10:00-0400 Hour[facility] Rounding [facility] 03-10-2023 10:00-0400 [facility] 03-10-2023 08:48-0400 gluc 116 mg/dL [facility] 03-10-2023 08:13-0400 Heart rate 118 /min [facility] 03-10-2023 08:13-0400 SaO2% (BldA) [Mass fraction] 96 % [facility] 03-10-2023 08:13-0400 Body temperature 98.06 [degF] [facility] 03-10-2023 08:12-0400 Diastolic blood pressure 69 mm[Hg] [facility] 03-10-2023 08:12-0400 Mean blood pressure 90 mm[Hg] [facility] 03-10-2023 08:12-0400 Systolic blood pressure 131 mm[Hg] [facility] 03-10-2023 00:40-0400 Blood Pressure Location [facility] 03-10-2023 00:40-0400 Body temperature 97.7 [degF] [facility] 03-10-2023 00:40-0400 Diastolic blood pressure 65 mm[Hg] [facility] 03-10-2023 00:40-0400 Heart rate 120 /min [facility] 03-10-2023 00:40-0400 Mean blood pressure 80 mm[Hg] [facility] 03-10-2023 00:40-0400 Respiratory rate 18 /min [facility] 03-10-2023 00:40-0400 SaO2% (BldA) [Mass fraction] 97 % [facility] 03-10-2023 00:40-0400 Systolic blood pressure 109 mm[Hg] [facility] 03-09-2023 17:18-0400 gluc 98 mg/dL [facility] 03-09-2023 11:50-0400 gluc 219 mg/dL [facility] 03-09-2023 09:22-0400 Heart rate 116 /min [facility] 03-09-2023 03:42-0400 Mean blood pressure 94 mm[Hg] [facility] 03-08-2023 16:08-0400 Mean blood pressure 100 mm[Hg] [facility] 03-08-2023 16:00-0400 Respiratory rate 18 /min [facility] 03-08-2023 11:00-0400 Respiratory rate 16 /min [facility] 03-08-2023 05:51-0400 Body temperature 97.16 [degF] [facility] 03-08-2023 05:51-0400 Mean blood pressure 105 mm[Hg] [facility] 03-07-2023 21:15-0400 Body temperature 98.06 [degF] [facility] 03-06-2023 09:34-0400 Heart rate 92 /min [facility] 03-05-2023 08:00-0400 Heart rate 84 /min [facility] 03-03-2023 12:51-0400 Body temperature 98.42 [degF] [facility] 03-03-2023 12:51-0400 Respiratory rate 17 /min [facility] 03-03-2023 12:40-0400 Respiratory rate 18 /min [facility] 03-03-2023 12:35-0400 Respiratory rate 18 /min [facility] 03-03-2023 12:26-0400 Body temperature 98.06 [degF] [facility] 03-01-2023 18:04-0400 Heart rate 120 /min [facility] 03-01-2023 17:45-0400 Heart rate 113 /min [facility] 03-01-2023 16:45-0400 Heart rate 108 /min [facility] 02-23-2023 11:14-0400 gluc [facility] 02-17-2023 10:28-0400 Blood Pressure Location Erwin Sheaan [facility] 02-17-2023 10:28-0400 Diastolic blood pressure 63 mm[Hg] Ivaniaharish Vickey [facility] 02-17-2023 10:28-0400 Heart rate 108 /min Erwin Vickey [facility] 02-17-2023 10:28-0400 SaO2% (BldA) [Mass fraction] 100 % Erwin Vickey [facility] 02-17-2023 10:28-0400 Systolic blood pressure 117 mm[Hg] Erwin Hurd [facility] 02-15-2023 16:53-0400 Diastolic blood pressure 85 mm[Hg] Brennon Nancy [facility] 02-15-2023 16:53-0400 Heart rate 108 /min Brennon Nancy [facility] 02-15-2023 16:53-0400 Mean blood pressure 109 mm[Hg] Brennon Nancy [facility] 02-15-2023 16:53-0400 Respiratory rate 18 /min Brennon Nancy [facility] 02-15-2023 16:53-0400 SaO2% (BldA) [Mass fraction] 96 % Brennon Nancy [facility] 02-15-2023 16:53-0400 Systolic blood pressure 156 mm[Hg] Brennon Nancy [facility] 02-15-2023 16:00-0400 Diastolic blood pressure 66 mm[Hg] Brennon Nancy [facility] 02-15-2023 16:00-0400 Heart rate 109 /min Brennon Nancy [facility] 02-15-2023 16:00-0400 Respiratory rate 16 /min Brennon Nancy [facility] 02-15-2023 16:00-0400 SaO2% (BldA) [Mass fraction] 100 % Brennon Nancy [facility] 02-15-2023 16:00-0400 Systolic blood pressure 154 mm[Hg] Brennon Nancy [facility] 02-15-2023 15:00-0400 Diastolic blood pressure 71 mm[Hg] Brennon Nancy [facility] 02-15-2023 15:00-0400 Heart rate 91 /min Brennon Nancy [facility] 02-15-2023 15:00-0400 SaO2% (BldA) [Mass fraction] 99 % Brennon Cruz [facility] 02-15-2023 15:00-0400 Systolic blood pressure 155 mm[Hg] Brennon Cruz [facility] 02-15-2023 11:02-0400 Body temperature 98.06 [degF] Brennon Cruz [facility] 02-15-2023 11:02-0400 Heart rate 118 /min Brennon Cruz [facility] 02-10-2023 13:15-0400 Blood Pressure Location Erwin Vickey [facility] 02-10-2023 13:15-0400 Diastolic blood pressure 75 mm[Hg] Mohharish Vickey [facility] 02-10-2023 13:15-0400 Heart rate 89 /min Mohharish Vickey [facility] 02-10-2023 13:15-0400 SaO2% (BldA) [Mass fraction] 100 % Mohharish Vickey [facility] 02-10-2023 13:15-0400 Systolic blood pressure 119 mm[Hg] Mohharish Vickey [facility] 01-06-2023 11:40-0400 Blood Pressure Location Mohamed Vickey [facility] 01-06-2023 11:40-0400 Diastolic blood pressure 60 mm[Hg] Mohamed Vickey [facility] 01-06-2023 11:40-0400 Heart rate 98 /min Mohharish Vickey [facility] 01-06-2023 11:40-0400 SaO2% (BldA) [Mass fraction] 99 % Mohamed Vickey [facility] 01-06-2023 11:40-0400 Systolic blood pressure 130 mm[Hg] Mohamed Vickey [facility] 12-23-2022 14:35-0400 Blood Pressure Location Mohharish Vickey [facility] 12-23-2022 14:35-0400 Diastolic blood pressure 70 mm[Hg] Mohamed Vickey [facility] 12-23-2022 14:35-0400 Heart rate 96 /min Mohamed Vickey [facility] 12-23-2022 14:35-0400 SaO2% (BldA) [Mass fraction] 100 % Mohharish Vickey [facility] 12-23-2022 14:35-0400 Systolic blood pressure 120 mm[Hg] Mohharish Vickey [facility] 12-09-2022 11:43-0500 Blood Pressure Location Mohharish Vickey [facility] 12-09-2022 11:43-0500 Diastolic blood pressure 69 mm[Hg] Mohharish Vickey [facility] 12-09-2022 11:43-0500 Heart rate 88 /min Mohamed Vickey [facility] 12-09-2022 11:43-0500 SaO2% (BldA) [Mass fraction] 96 % Mohamed Vickey [facility] 12-09-2022 11:43-0500 Systolic blood pressure 105 mm[Hg] Mohamed Vickey [facility] 11-22-2022 11:42-0500 Blood Pressure Location Mohharish Vickey [facility] 11-22-2022 11:42-0500 Diastolic blood pressure 80 mm[Hg] Erwin Hurd [facility] 11-22-2022 11:42-0500 Heart rate 75 /min Erwin Hurd [facility] 11-22-2022 11:42-0500 SaO2% (BldA) [Mass fraction] 98 % [facility] Vickey [facility] 11-22-2022 11:42-0500 Systolic blood pressure 130 mm[Hg] Erwin Hurd [facility] Encounters Encounter Date Encounter Type Care Provider Facility Start: 01-04-2024 End: 01-04-2024 ambulatory [facility] Start: 12-23-2023 Encounter for other preprocedural examination [facility] Start: 12-21-2023 Encounter for other preprocedural examination [facility] Start: 12-21-2023 End: 12-24-2023 Evaluation and management of inpatient [facility] Start: 12-16-2023 ambulatory [facility] Start: 12-07-2023 Orders Only Angeles Mendes S[employer]IOR [employer]IST-[employer] RN Work Phone: [facility] Comment on above: Anemia, unspecified type (Primary Dx) Start: 12-01-2023 End: 12-01-2023 ambulatory ANGELES MENDES [facility] Start: 11-30-2023 ambulatory [facility] Start: 11-19-2023 Evaluation and management of inpatient MONA MANE [facility] Start: 11-18-2023 Evaluation and management of inpatient MONA MANE [facility] Start: 11-18-2023 Evaluation and management of inpatient LEXUS JONNY [facility] Start: 11-17-2023 Emergency department patient visit REBECCA ZUNIGA [facility] Start: 11-17-2023 End: 11-22-2023 Evaluation and management of inpatient JOHNATHAN FINE [facility] Start: 11-03-2023 Evaluation and management of inpatient [facility] Start: 11-02-2023 Evaluation and management of inpatient [facility] Start: 11-02-2023 End: 11-08-2023 Evaluation and management of inpatient [facility] Start: 11-02-2023 ambulatory TANJA [facility] Start: 10-31-2023 End: 11-24-2023 Pre-admission assessment Master Garcia [facility] Start: 10-26-2023 ambulatory [facility] Start: 10-26-2023 End: 10-27-2023 ambulatory [facility] Start: 10-19-2023 End: 10-20-2023 ambulatory [facility] Start: 10-17-2023 End: 10-17-2023 ambulatory SALINA SLADE [facility] Start: 10-17-2023 End: 10-17-2023 ambulatory JIMMY [facility] Start: 10-12-2023 End: 10-13-2023 Emergency department patient visit GIAN HORTA [facility] Start: 10-12-2023 End: 10-12-2023 ambulatory [facility] Start: 10-05-2023 End: 10-06-2023 ambulatory [facility] Start: 09-29-2023 End: 10-10-2023 ambulatory NATY MANNING [facility] Start: 09-28-2023 End: 09-29-2023 ambulatory [facility] Start: 09-21-2023 Evaluation and management of inpatient JUHI ALLEN [facility] Start: 09-19-2023 Evaluation and management of inpatient TANJA NUGENT [facility] Start: 09-18-2023 Evaluation and management of inpatient ELIANA GARZON [facility] Start: 09-18-2023 End: 09-26-2023 Evaluation and management of inpatient ANAIS VAZQUEZ [facility] Start: 09-18-2023 Emergency department patient visit [facility] Start: 08-31-2023 End: 09-01-2023 ambulatory [facility] Start: 07-21-2023 Telephone encounter [facility] Start: 07-21-2023 End: 07-21-2023 ambulatory Brennon Cruz Facility: [facility] Start: 07-19-2023 End: 07-19-2023 ambulatory Robert Gomez Other [facility] Other Start: 07-19-2023 Office outpatient vi sit 25 minutes Robert Gomez [facility] Start: 06-20-2023 ambulatory [facility] Start: 05-16-2023 ambulatory [facility] Start: 05-09-2023 End: 05-10-2023 ambulatory Erwin Hurd Facility:[facility] Start: 05-09-2023 End: 05-09-2023 Patient encounter procedure Erwin Hurd [facility] Start: 04-11-2023 End: 04-11-2023 ambulatory Erwin Hurd Facility:[facility] Start: 04-08-2023 End: 04-09-2023 ambulatory Erwin Hurd Facility:[facility] Start: 04-08-2023 End: 04-08-2023 Patient encounter procedure Ivaniaharish Hurd [facility] Start: 04-04-2023 End: 04-05-2023 ambulatory Erwin Cristina Sheaan Facility:[facility] Start: 04-04-2023 End: 04-04-2023 Patient encounter procedure Erwin Hurd [facility] Start: 03-30-2023 End: 04-14-2023 Pre-admission assessment Erwin SchuylerOtilia Sheaan [facility] Start: 03-17-2023 End: 03-18-2023 ambulatory Ivaniaharish Hurd Facility:[facility] Start: 03-08-2023 End: 03-09-2023 ambulatory Bekah LAUREN Facility:[facility] Start: 02-23-2023 End: 03-10-2023 Evaluation and management of inpatient Alaa ALASAIGEAD Facility:[facility] Start: 02-23-2023 End: 03-10-2023 Evaluation and management of inpatient Alaa ALASAIGEAD [facility] Start: 02-18-2023 End: 02-18-2023 ambulatory Erwin Hurd Facility:[facility] Start: 02-18-2023 Emergency department patient visit Brennon Cruz Facility:[facility] Start: 02-17-2023 End: 02-18-2023 ambulatory Erwin Hurd Facility:[facility] Start: 02-17-2023 End: 02-17-2023 Patient encounter procedure Ivaniaharish PayanOtilia Sheaan [facility] Start: 02-15-2023 End: 02-15-2023 Emergency department patient visit Brennon Cruz Facility:[facility] Start: 02-15-2023 End: 02-15-2023 [facility] [facility] Start: 02-15-2023 End: 02-16-2023 Pre-admission assessment Erwin SchuylerOtilia Hurd [facility] Start: 02-14-2023 End: 02-16-2023 Pre-admission assessment Erwin Hurd [facility] Start: 02-10-2023 End: 02-11-2023 ambulatory Erwin Hurd Facility:[facility] Start: 02-10-2023 End: 02-10-2023 Patient encounter procedure Erwin Hurd [facility] Start: 02-09-2023 End: 02-09-[address] GIAN HORTA Facility: Start: 01-30-2023 Evaluation and management of inpatient LINUS HER [facility] Start: 01-29-2023 End: 01-29-2023 ambulatory [facility] PROVIDER Facility:[facility] Start: 01-29-2023 End: 02-03-2023 Evaluation and management of inpatient ERWIN VICKEY [facility] Start: 01-29-2023 End: 01-29-[address] GIAN HORTA Facility: Start: 01-06-2023 End: 01-07-2023 ambulatory Erwin Sheaan Facility:[facility] Start: 01-06-2023 End: 01-06-2023 Patient encounter procedure Erwin Hurd [facility] Start: 12-23-2022 End: 12-24-2022 ambulatory Erwin Sheaan Facility:[facility] Start: 12-23-2022 End: 12-23-2022 Patient encounter procedure Erwin Hurd [facility] Start: 12-09-2022 End: 12-10-2022 ambulatory Erwin Hurd Facility:[facility] Start: 12-09-2022 End: 12-09-2022 Patient encounter procedure Erwin Hurd [facility] Start: 11-29-2022 End: 11-30-2022 Pre-admission assessment Erwin Hurd [facility] Start: 11-22-2022 End: 11-23-2022 ambulatory Erwin Hurd Facility:[facility] Start: 11-22-2022 End: 11-22-2022 Patient encounter procedure Erwin Hurd [facility] Start: 11-13-2022 End: 11-15-2022 ambulatory UNKNOWN PROVIDER Facility:[facility] Start: 11-13-2022 End: 11-13-[address] GIAN HORTA Facility:[facility] Start: 11-08-2022 End: 01-07-2023 Pre-admission assessment GIAN HORTA JR [facility] Start: 11-03-2022 Encounter for other preprocedural examination ERWIN HURD [facility] Start: 11-01-2022 End: 11-02-2022 ambulatory ERWIN HURD Facility: Start: 11-01-2022 End: 11-02-2022 Encounter for other preprocedural examination ERWIN HURD Facility: Start: 10-20-2022 End: 10-21-[address] MARCO A OSWALD Facility:[facility] Start: 05-12-2021 End: 05-13-2021 ambulatory GIAN HORTA Facility:[facility] Procedures Date Procedure Procedure Detail Performing Clinician Start: 10-17-2023 Follow-up visit TANJA SABA Start: 04-11-2023 Surgical debridement of wound Erwin Sheaan Start: 03-03-2023 Amputation above-knee A haley ALAHMAD Start: 11-29-2022 H/O: major vascular surgery Eriwn Sheaan Appendectomy Alaa ALAHMAD Cholecystectomy Alaa ALAHMAD Coronary artery bypa ss grafts x 2 Alaa ALAHMAD Femorofemoral crosso bharath bypass graft Erwin Sheaan Vascular surgery (qu alifier value) Alaa ALAHMAD Vascular surgery (qu alifier value) Ivaniaharish Vickey Plan of Treatment Date Care Activity Detail Author Start: 10-12-2024 Adult BMI Screening Adult BMI Screening [facility] Start: 10-12-2024 Tobacco Screening Tobacco Screening [facility] Start: 06-10-2023 COVID-19 Vaccine ( season) COVID-19 Vaccine () [facility] Start: 06-10-2023 Influenza vaccination Influenza Vaccine [facility] Start: 12-12-2011 Fall Risk Screening Fall Risk Screening [facility] Start: 1996 Administration of varicella zoster vaccine Zoster (Shingles) Vaccine (1 of 2) [facility] Start: 1965 DTaP,Tdap and Td Vaccines (1 - Tdap) DTaP,Tdap and Td Vaccines (1 - Tdap) [facility] Start: 1958 Depression Screening Depression Screening [facility] Start: 1946 Medicare Annual Wellness Visit Medicare Annual Wellness Visit [facility] Payers Date Payer Category Payer Private Health Insurance 2004 Medicare MEDICARE MEDICAR E PART A & B [id number] 2004-Present [phone] [address] [place] [address] [id number] 1959 Medicare [id number] 1959 Private Health Insurance CLI [id number] 1946 Unknown [id number] 2.16.840.1.717042.3.579.2.6 47 1946 Unknown [id number] 2.16.840.1.722939.3.579.2.7 32 1946 Unknown [id number] 2.16.840.1.001362.3.579.2.7 32 1946 Unknown [id number] 2.16.840.1.216162.3.579.2.5 1946 Unknown [id number] 2.16.840.1.207778.3.579.2.5 1946 Unknown [id number] 2.16.840.1.746159.3.579.2.5 1946 Unknown [id number] 2.16.840.1.895151.3.579.2.5 1946 Unknown [id number] 2.16.840.1.251699.3.579.2.5 1946 Unknown [id number] 2.16.840.1.358684.3.579.2.7 1946 Unknown [id number] 2.16.840.1.435152.3.579.2.7 1946 Unknown [id number] 2.16.840.1.576330.3.579.2.7 1946 Unknown [id number] 2.16.840.1.482918.3.579.2.7 1946 Unknown [id number] 2.16.840.1.690822.3.579.2.7 1946 Unknown [id number] 2.16.840.1.512375.3.579.2.7 1946 Unknown [id number] 2.16.840.1.779030.3.579.2.7 1946 Unknown [id number] 2.16.840.1.562231.3.579.2.7 1946 Unknown [id number] 2.16.840.1.640057.3.579.2.7 1946 Unknown [id number] 2.16.840.1.608849.3.579.2.7 1946 Unknown [id number] 2.16.840.1.684844.3.579.2.7 1946 Unknown [id number] 2.16.840.1.468511.3.579.2.7 27 1946 Unknown [id number] 2.16.840.1.872934.3.579.2.7 27 1946 Unknown [id number] 2.16.840.1.107678.3.579.2.7 27 1946 Unknown [id number] 2.16.840.1.154424.3.579.2.7 27 1946 Unknown [id number] 2.16.840.1.901740.3.579.2.7 27 1946 Unknown [id number] 2.16.840.1.458349.3.579.2.7 27 1946 Unknown [id number] 2.16.840.1.942275.3.579.2.7 27 1946 Unknown [id number] 2.16.840.1.918752.3.579.2.3 56 1946 Unknown [id number] 2.16.840.1.518331.3.579.2.1 286 1946 Unknown [id number] 2.16.840.1.339820.3.579.2.1 286 1946 Unknown [id number] 2.16.840.1.548867.3.579.2.1 286 1946 Unknown [id number] 2.16.840.1.294655.3.579.2.1 286 1946 Unknown [id number] 2.16.840.1.404249.3.579.2.1 286 1946 Unknown [id number] 2.16.840.1.638215.3.579.2.1 286 1946 Unknown [id number] 2.16.840.1.528841.3.579.2.1 286 Unknown [id number] Social History Date Type Detail Facility Start: 11-22-2022 End: 07-28-2023 Tobacco smoking status Ex-smoker (finding) [facility] Tobacco smoking status Never [facility] Start: 11-20-2020 End: 10-12-2023 Sex Assigned At Male [facility] History of tobacco use Current smoker [facility] History of tobacco use Cigarette Smoker P [facility] Start: 07-28-2023 Tobacco use and exposure Smokeless tobacco non-user [facility] Start: 10-12-2023 Alcohol intake Ex-drinker (finding) [facility] Start: 11-20-2020 End: 10-12-2023 History of Social function [facility] Start: 1945 Sex Assigned At Not on file P [facility] Functional Status Date Assessment Result Facility 05-09-2023 Functional Status No [facility] 04-08-2023 Functional Status No [facility] 02-23-2023 Functional Status N/A [facility] 02-23-2023 Functional Status [facility] 02-17-2023 Functional Status N/A [facility] 02-15-2023 Functional Status N/A [facility] 02-10-2023 Functional Status No [facility] 01-06-2023 Functional Status No [facility] 12-23-2022 Functional Status No [facility] 12-09-2022 Functional Status No [facility] 11-22-2022 Functional Status No [facility] Clinical Notes 12-09-2022 to 01-04-2024 Note Date & Type Note Facility 01-04-2024 Note [facility] 12-24-2023 Note [facility] 12-24-2023 Note [facility] 12-23-2023 Note [facility] 12-23-2023 Note [facility] 12-23-2023 Note [facility] 12-23-2023 Note [facility]. No pre-cert is needed but awaiting medical readiness. Pt/family aware. AVS updated. UPDATE 3:20PM- Pt medically ready but SNF not able to accept until tomorrow. has been updated. 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 First available is 8:45pm. Let the facility and patient's know the discharge time. Sent the AVS to [facility]. [facility] 11-21-2023 Note [facility] 11-20-2023 Note hospitalist notified by nursing staff that patient spiked a temperature of 102 ???F during his posttransfusion vitals. Spoke with blood bank and they stated to order transfusion reaction protocol and they would contact nursing for further instructions. [facility] 11-20-2023 Note [facility] 11-20-2023 Note [facility] 11-20-2023 Note [facility] 11-20-2023 Note [facility] 11-20-2023 Note [facility] 11-19-2023 Note [facility] 11-19-2023 Note [facility] 11-18-2023 Note [facility] 11-18-2023 Note [facility] 11-18-2023 Note [facility] 11-18-2023 Note [facility] 11-08-2023 Note [facility] 11-08-2023 Note [facility] 11-08-2023 Note [facility] 11-08-2023 Note [facility] 11-08-2023 Note [facility] 11-07-2023 Note [facility] 11-07-2023 Note [facility] 11-07-2023 Note [facility] 11-07-2023 Note This report has been cancelled. [facility] 11-07-2023 Note [facility] 11-07-2023 Note Sent updates to 3 fo llowing SNF's but still needing OT/PT evals before they can accept. Requested orders be placed. UPDATE 2:20PM- Pt/'s 1st SNF choice [facility] stated they will be able to accept. Updated Ijeoma by phone and updated AVS. [facility] 11-06-2023 Note harvest worker field crop spoke with patient's Ijeoma. Ijeoma reports that SNF choices at 1.) [facility], 2.) [facility] and 3.) [facility]. SNF referrals sent. OTM will continue to follow. [facility] 11-06-2023 Note [facility] 11-06-2023 Note [facility] 11-05-2023 Note [facility] 11-05-2023 Note [facility] 11-04-2023 Note [facility] 11-04-2023 Note [facility] 11-04-2023 Note [facility] 11-04-2023 Note [facility] 11-04-2023 Note [facility] 11-04-2023 Note [facility] 11-03-2023 Note Spiritual Care Note Patient name: Max Sanchez Age: 77 y.o. Room: [address] [place] [address] Patients was not present. Unable to complete Advance Directives documents. [facility] 11-03-2023 Note [facility] 11-03-2023 Note [facility] 11-02-2023 Note [facility] 11-02-2023 Note [facility] 11-02-2023 Note [facility] 10-26-2023 Note [facility] 10-17-2023 Note [facility] 10-17-2023 Note [facility] 10-05-2023 Note [facility] 09-26-2023 Note [facility] 09-25-2023 Note [facility] 09-25-2023 Note [facility] 09-25-2023 Note [facility] 09-25-2023 Note Awaiting IV antibiot ic approval and delivery. Sent updates to Yissel Faustin. AVS updated. OTM will continue to follow. [facility] 09-24-2023 Note [facility] 09-24-2023 Note [facility] 09-24-2023 Note [facility] 09-24-2023 Note [facility] 09-23-2023 Note [facility] 09-23-2023 Note [facility] 09-23-2023 Note [facility] 09-23-2023 Note [facility] 09-22-2023 Note [facility] 09-22-2023 Note [facility] 09-22-2023 Note [facility] 09-22-2023 Note [facility] 09-22-2023 Note [facility] 09-22-2023 Note [facility] 09-22-2023 Note This report has been cancelled. [facility] 09-21-2023 Note [facility] 09-21-2023 Note [facility] 09-20-2023 Note [facility] 09-20-2023 Note [facility] 09-20-2023 Note [facility] 09-20-2023 Note [facility] 09-19-2023 Note [facility] 09-19-2023 Note [facility] 09-18-2023 Note [facility] 08-31-2023 Note Continue IV antibiot ics and serial examination. [facility] 08-31-2023 Note [facility] 08-12-2023 Note Scheduled EGD/Cln/An emia/GI Bleed/EV 08/15/23 @1230, [facility], Dr. Velasquez [facility], #[id number]. Urgent referral from Dr. Horta scanned in Media 08/12/23. Patient holding blood thinner since 07/12/23. 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 Therapy with home health for prosthetic training when obtained-patie nt reports has this in place If tolerates temp prosthesis can f/u 3-6 months for final definitive prosthesis evaluation/pre scription. Monitor for skin breakdown. [facility] Other 09-11-2023 NoteAKA stump and physical therapy. Follow- up in a year.[facility]09[facility] NoteContinue wound VAC and follow-up in a month. [facility]08-07-2023 [facility]Un[facility]06-30-2023 [id number]:127[facility]06-01-2023 Evaluation + Plan noteExtracted from: Title:Discharge Note Author:Alison FINNEGAN Date:03/10/23 Hemodynamically stable condi tion Discharge To, Anticipated II - [facility] Unit Discharged to - Home with family [...] Oral, Supper nystatin 100,000 units/mL Oral Susp, 5415323 unit(s)= 15 mL, Oral, QIDACHS oxymetazoline Nasal 0.05% [place], 2 spray(s), Nasal, BID, PRN senna 8.6 mg Tab, 17.2 mg= 2 tab(s), Oral, BID, PRN SEROquel 25 mg Tab, 25 mg= 1 tab(s), Oral, Bedtime sodium chloride nasal 0.65% spray, 2 spray(s), Nasal, q2hr, PRN Verquvo 10 mg oral tablet, 10 mg= 1 tab(s), Oral, Daily With When Contact Information GIAN HORTA In 3 days 02/28/[address] [facility] [address] Business (1) Additional Instructions: The office is closed on Fridays. Please contact your PCP on Tuesday, February 28 for an appointment. Thank you! Chong Coe Within 7 to 10 days [address] [place] [address]- Business (1) Additional Instructions: Erwin Hurd Within 5 to 7 days [address] [place] [address]- Business (1) Additional Instructions: Dami WISE, TAL Giudry Within 2 to 4 weeks [address] [place] [address]- Additional Instructions: Diabetes Mellitus and Nutrition, Adult Diabetes Mellitus and Foot Care Wound Infection, Nvaz-xs-Pycm Extracted from: Title:APSO Note Author:Megan DONIS Date:03/09/23 [...] of right lower extremity (I70.221: Atherosclerosis of [place] arteries of extremities with rest pain, right leg) - Atherosclerosis of [place] arteries of extremities with rest pain, right [...] ID. Dressing changes as per orders. 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 -Severe malnutrition, dietitian consult [...] - afrin Orders: oxymetazoline nasal, 2 spray(s), [place], Nasal, TID for 72 hour(s), Stop date [...] of right lower extremity (I70.221: Atherosclerosis of [place] arteries of extremities with rest pain, right leg) - Atherosclerosis of [place] arteries of extremities with rest pain, right [...] from: Title:APSO Note-neurology Author:Alise GUARDADO, Fabian randall Date:03/08/23 Reason for consult: Persistent encephalopathy ASSESSMENT: [...] of right lower extremity (I70.221: Atherosclerosis of [place] arteries of extremities with rest pain, right [...] of right lower extremity (I70.221: Atherosclerosis of [place] arteries of extremities with rest pain, right leg) - Atherosclerosis of [place] arteries of extremities with rest pain, right [...] of right lower extremity (I70.221: Atherosclerosis of [place] arteries of extremities with rest pain, right [...] procedure, unspecified, initial encounter) - Atherosclerosis of [place] arteries of extremities with rest pain, right leg - 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 Call out yesterday. - On ASA, plavix, pletal Ordered: [facility] Care/Day High 50 Minutes [id number] 2. Critical limb ischemia of right lower extremity (I70.221: Atherosclerosis of [place] arteries of extremities with rest pain, right leg) - left groin infection, Dr. Hurd recommended continue wound vac to be changed every 3 days with black foam, 125 mmHg - On invanz IV daily, follow-up ID of 3 weeks of antibiotics - picc line in place Ordered: [facility] Care/Day High 50 Minutes [id number] 3. Peripheral vascular disease (I73.9: Peripheral vascular disease, unspecified) - As above Ordered: [facility] Care/Day High 50 Minutes 57631 4. Acute metabolic encephalopathy (G93.41: Metabolic encephalopathy) [...] process - Neurology consulted again today. [facility]: [facility] Care/Day High 50 Minutes [id number] 5. Anemia of chronic disease (D63.8: Anemia in other chronic diseases classified elsewhere) - Transfused 2 unit prbc 3 days ago - Hemoglobin stable - On iron infusion Ordered: [facility] Care/Day High 50 Minutes [id number] 6. Diabetes (E11.9: Type 2 diabetes mellitus without complications) - Metformin and SSI Ordered: [facility] Care/Day High 50 Minutes [id number] 7. Chronic GERD (K21.9: Gastro-esophageal reflux disease without esophagitis) - Pepcid Ordered: [facility] Care/Day High 50 Minutes [id number] 8. No contraindication to deep vein thrombosis (DVT) prophylaxis (Z78.9: Other specified health status) SCDs and Lovenox Ordered: [facility] Care/Day High 50 Minutes 21903 D/C tomorrow if cleared by neurology. 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 Critical limb ischemia of right lower extremity (I70.221: Atherosclerosis of [place] arteries of extremities with rest pain, right [...] of right lower extremity (I70.221: Atherosclerosis of [place] arteries of extremities with rest pain, right [...] of right lower extremity (I70.221: Atherosclerosis of [place] arteries of extremities with rest pain, right [...] to ensure accuracy , however, inadvertently computerized hardboard coating machine operator mistakes may be present . Extracted from: Title:Progress Note * Author:Chong Coe M.D Date:03/04/23 Impression and Plan Diagnosis: Diagnosis: left groin wound fem pop infection partially treated already with 3 weeks of IV dapto/cefepime. . Orders Patient has been treated for a left groin wound postop vascular infection. Antibiotics were initially started after the infection was diagnosed at [facility]. Culture reportedly was negative per the [...] this is ertapenem. Extracted from: Title:APSO Note Author:Aiden Campa MD Date: 1. Post-operative infection (T81.40XA: Infection following a procedure, unspecified, initial encounter) - left groin infection, Dr. Hurd recommended continue wound vac to be changed every 3 days with black foam, 125 mmHg - On invanz IV daily, follow-up ID recommendation - picc line in place 2. Critical limb ischemia of right lower extremity (I70.221: Atherosclerosis of [place] arteries of extremities with rest pain, right [...] of right lower extremity (I70.221: Atherosclerosis of [place] arteries of extremities with rest pain, right [...] to ensure accuracy , however, inadvertently computerized hardboard coating machine operator mistakes may be present . Extracted from: Title:ANES Post-operative Note---General Author: MD Horner Ahmad F Date:03/03/23 Plan Transfer/Discharge: Transfer/Discharge Discharge when meets criteria ( To home ). Extracted from: Title:ANES Pre-anesthesia - Adult 19 Author:Marianne torres MD, Ahmad F Date:03/03/23 Plan [place] [employer] (ASA) physical status classification: [...] of right lower extremity (I70.221: Atherosclerosis of [place] arteries of extremities with rest pain, right [...] the as cultures apparently were done in [place]. Extracted from: Title:APSO Note Author:Shayy BALLESTEROS MD [...] 21 days, picc line in place Ordered: [facility] Care/Day High 50 Minutes [id number] 2. Critical limb ischemia of right lower extremity (I70.221: Atherosclerosis of [place] arteries of extremities with rest pain, right [...] of right lower extremity (I70.221: Atherosclerosis of [place] arteries of extremities with rest pain, right [...] of right lower extremity (I70.221: Atherosclerosis of [place] arteries of extremities with rest pain, right [...] health Discharged to - Home with family [facility] Discharge Diet(s): Calorie Controlled- 1800 Calorie Diet [...] Oral, Supper nystatin 100,000 units/mL Oral Susp, [id number] unit(s)= 15 mL, Oral, QIDACHS Verquvo 10 mg oral tablet, 10 mg= 1 tab(s), Oral, Daily With When Contact Information GIAN HORTA In 3 days 02/28/[address]23 EDT [address] [place] [address] Business (1) Additional Instructions: The office is closed on Fridays. Please contact your PCP on Tuesday, February 28 for an appointment. Thank you! Diabetes Mellitus and Nutrition, Adult Diabetes Mellitus and Foot Care Wound Infection, Nxqa-sm-Jbtk Discharge time >30 min Extracted from: Title:Infection Admission H&P * Author:Chong Coe M.D Date:02/25/23 Impression and Plan Diagnosis left groin wound fem pop infection partially treated already with 3 weeks of IV dapto/cefepime . Orders Patient's initial debridement on his left groin wound was done at [facility]. These records are not available for [...] 01:00:00 PM Scheduled Provider:Vickey WISE, Erwin Evans Location:.Vascular Clinic Appointment Type:Vascular Follow Up (FT) Diagnostic Tests Pending * Urine Culture 03/10/23 Future Scheduled Tests Radiology* US Aorta, IVC, Iliac Duplex 04/08/23 * US PVR Lower EXT Complete Bilat 04/08/23 * CV Cardiovascular 02/15/23 [facility]06-01-2023 [facility] on above:Result Comment: Electronically Signed By: Serena FINNEGAN\.br\Date and Time Signed: 03/10/23 10:50 EDT\.br\Electronically Co-Signed By: Vazquez WISE, [place]\.br\Date and Time Co-Signed: 03/10/23 11:19 EDT 02-25-2023 NoteMarion HospitalComment on above:Result Comment: Electronically Signed By: NEVAEH WISE, Ramos\.br\Date and Time Signed: 02/25/23 11:[id number] Hospital Discharge instructions Patient Education 02/25/2023 11:06:33 [...] Carrots. Green beans. Tomatoes. Peppers. Onions. Cucumbers. [place] sprouts. Grains Whole grains, such as whole-wheat [...] meet with a certified diabetes care and outdoor education teacher? Do I need to meet with a dietitian? What number can I call if I have questions? When are the best times to check my blood glucose? Where to find more information: [place] [employer] Association: diabetes.org Academy of Nutrition and Dietetics: eatright.org National [place] of Diabetes and Digestive and Kidney Diseases: [...] provider. Document Revised: 04/29/2021 Document Reviewed: 04/29/2021 [employer] Patient Education 2022 SSN Funding. 02/25/2023 11:06:31 Diabetes Mellitus and Foot Care Diabetes Mellitus and Foot Care Foot care is an important part of your health, especially when you have diabetes. Diabetes may cause you to have problems because of poor blood flow (circulation) to your feet and legs, which can cause your skin to: Become thinner and tunnel drier operator. Break more easily. Heal more slowly. Peel [...] provider immediately. Where to find more information [place] [employer] Association: www.diabetes.org Association of Diabetes Care [...] provider. Document Revised: 04/16/2021 Document Reviewed: 04/16/2021 [employer] Patient Education 2022 SSN Funding. 02/25/2023 11:06:09 Wound Infection, Jfys-pa-Zmbe Wound Infection A wound infection happens when [...] instructions at home: Medicines Take or apply mkeq-fvb-tmytmsy and prescription medicines only as told by [...] cannot use soap and water, use hand grade teacher. ?Change your bandage as told by your [...] provider. Document Revised: 07/22/2022 Document Reviewed: 07/22/2022 [employer] Patient Education 2022 CWR Mobility Follow Up Care 02/23/2023 10:43:07 With:Chong Coe Address: [address] [place] [address]- Business (1) When:7 to 10 days With:Erwin Hurd Address: [address] [place] [address]- Business (1) When:5 to 7 days With:Andrea Lomax MD, NEU Address: [address] [place] [address]- When:2 to 4 weeks With:GIAN HORTA Address: [address] [place] [address] Business (1) When:02/28/2023 Comments:The office is closed on Fridays. Please contact your PCP on Tuesday, February 28 for an appointment. Thank you! [facility]05-17-2023 NoteMarion HospitalComment on above:Result Comment: Electronically Signed By: NEVAEH WISE, Ramos\.br\Date and Time Signed: 02/23/23 16:[id number] Evaluation + Plan noteExtracted from: Title:ED Note [...] 02/15/23 12:39:00 EDT phenylephrine nasal, 2 spray(s), [place], Nasal, Once, Stop date 02/15/23 12:42:00 EDT, [...] Bilat 04/08/23 * CV Cardiovascular 02/15/23 [facility]05-09-2023 Evaluation + Plan note Future Scheduled Tests Radiology* CV Cardiovascular 02/15/23 [facility]05-09-2023 Hospital Discharge instructions Follow Up Care 02/15/2023 11:01:41 With:Vinita Delgadillo Address:Unknown When:02/18/2023 16:48:28 With:Erwin Hurd Address: [address] [place] [address]- Business (1) When:02/18/2023 16:48:12 With:GIAN HORTA Address: [address] [address] Business (1) When:Within 3 Day(s) [facility]-02-[facility]-2023 NoteOccupational Therapy Pt is unable to be seen for therapy at this time secondary to Refused. Will continue to check back as appropriate. [facility] attempted: 1500[facility] Note Occupational Therapy Pt is unable to be seen for therapy at this time secondary to Refused due to N&V, nsg aware. Will continue to check back as appropriate. Time attempted: 1012[facility]04[facility] NotePhysical Therapy RN agreeable to pt participation as long as pt is agreeable. Pt is unable to be seen for therapy at this time secondary to Refused, RN informed.Will continue to check back as appropriate. Time attempted: 957[facility]04-25-20[facility] 01-31-2023 [facility]-20[facility]-2023 [facility]UnAv[facility] 01-31-2023 NoteUnAv[facility]04-24-2023 NotePhysical Therapy Hbg 7.2 this AM - currently pending 2 units RBC's. Will defer evaluation this morning and attempt back in PM as able. Júnior Espinoza PT, DPTUnAvita Health System [facility]04-24-2023 NoteUnAv[facility]04-24-2023 [facility]Un[facility] 01-31-2023 NoteUnAv[facility]04-23-2023 NoteUnAv[facility]04-22-2023 NoteINSERTED WITHOUT COMPLICATION USING STERILE TECHNIQUE; DRAINING CLEAR YELLOW URINE; TO BE MONITORED AND MAINTAINED BY ANESTHESIA FOR DURATION OF THE CASE [facility]04-22-2023 NoteUnAv[facility]04-22-2023 NoteUnAv[facility]04-22-2023 Note PROCEDURE: XR HIP RT 2 [...] Electronically authenticated by: MARIO CULLEN Date: 2023-01-29 14:17[facility]03-02-2023 [id number]:127Mar[facility] HospitalEvaluation + Plan note Future Appointments Appointment Date:12/02/2022 08:45:00 AM Scheduled Provider:Brennon Alvarado MD Location:FT.WOUND CLINIC Appointment Type:WC New Patient 30 (FT) [facility] Future Appointments Appointment Date:12/23/2022 02:30:00 PM Scheduled Provider:Erwin Hurd MD Location:FT.[facility]ascular Clinic Appointment Type:Vascular Follow Up (FT) [facility] Future Scheduled Tests Radiology* US Aorta, IVC, Iliac Duplex 04/08/23 * US PVR Lower EXT Complete Bilat 04/08/23 [facility] Future Appointments Appointment Date:02/17/2023 10:30:00 AM Scheduled Provider:Erwin Hurd [facility] Follow Up (FT) Future Scheduled Tests Radiology* US Aorta, IVC, Iliac Duplex 04/08/23 * US PVR Lower EXT Complete Bilat 04/08/23 * CV Cardiovascular 02/15/23 [facility] Future Appointments Appointment Date:03/17/2023 01:00:00 PM Scheduled Provider:Erwin Hurd MD Location:.Vascular Clinic Appointment Type:Vascular Follow Up (FT) Future Scheduled Tests Radiology* US Aorta, IVC, Iliac Duplex 04/08/23 * US PVR Lower EXT Complete Bilat 04/08/23 * CV Cardiovascular 02/15/23 [facility] Future Appointments Appointment Date:04/13/2023 09:00:00 AM Scheduled Provider: [facility] App[facility] Type:US Duplex Procedures (FT) Diagnostic Tests Pending * Path. Review 04/04/23 Future Scheduled Tests Radiology* US Aorta, IVC, Iliac Duplex 04/13/23 * US PVR Lower EXT Complete Bilat 04/13/23 * CV Cardiovascular 02/15/23 [facility] Future Appointments Appointment Date:04/11/2023 12:30:00 PM Scheduled Provider: Location:[facility] Appointment Type:Surgery FT Future Scheduled Tests Radiology* CV Cardiovascular 02/15/23 [facility] noteNo InformationNortHaven [facility]al [facility] [employer] Other Evaluation note* Diagnosis Anemia, unspecified type- Primary documented in this encounter [facility] N[facility]ative - Reported* Type Description Date Medical History type II diabetes Medical History PAD Surgical History cholcystecomy Surgical History appendectomy Surgical History open heart surgery Surgical History femoral bypass Surgical History right leg amputation [facility] [employer] Other Hospital course Narrative No data available for this section [facility] No data available for this section [facility] CenterInstructionsNot on filedocumented in this encounter [facility] HospitalProgress note No data available for this section [facility] Summary Purpose Family History No Family History [...] and content) DATE CREATED AUTHOR 04/29/2022 [facility] DATE CREATED AUTHOR AUTHOR'S ORGANIZ ATION 01/30/2023 [facility] DATE CREATED AUTHOR AUTHOR'S ORGANIZ ATION 02/10/2023 [facility] DATE CREATED AUTHOR AUTHOR'S ORGANIZ ATION 07/22/2023 [facility] DATE CREATED AUTHOR AUTHOR'S ORGANIZ ATION 09/07/2023 [facility] DATE CREATED AUTHOR AUTHOR'S ORGANIZ ATION 10/29/[address] [facility] DATE CREATED AUTHOR AUTHOR'S ORGANIZ ATION 01/09/2024 [facility] Patient Care team informatio n (unrecognized section and content) [employer] Bag Sewer Relationship Specialty Start Date End Date Gian Horta Jr., [address] [place] [address] PCP - General Internal Medicine 07/21/23 REASON FOR VISIT (unrecogniz ed section and content) REF NIRAJ THAPA ETI EVAL.script niraj FOR RECORDS PERTAINING TO PATIENTS [...] BE BASED ON THE PRIMARY CLINICAL RECORDS. [employer] [facility]. provides no warranty or guarantee of the accuracy or completeness of information in this document.
== END 2024-01-19 20:35 ==
LOC: ER 15:49 → MS 01-19 11:57
PROVIDERS: Physician Assistant; Student in an Organized Health Care Education/Training Program; Admitting Provider Family Medicine; Emergency Provider Emergency Medicine; PCP Internal Medicine; Visit Provider Nurse Practitioner
PROC: (CPT 27596; principal; 2024-01-19 12:00)
DX: T87.81 Dehiscence of amputation stump (principal); E87.6 Hypokalemia; E11.51 Type 2 diabetes mellitus with diabetic peripheral angiopathy without gangrene; D62 Acute posthemorrhagic anemia; I10 Essential (primary) hypertension; K92.2 Gastrointestinal hemorrhage, unspecified; J44.9 Chronic obstructive pulmonary disease, unspecified; I48.0 Paroxysmal atrial fibrillation; I25.10 Atherosclerotic heart disease of native coronary artery without angina pectoris; D75.839 Thrombocytosis, unspecified; Z87.891 Personal history of nicotine dependence; Z89.612 Acquired absence of left leg above knee; Z89.611 Acquired absence of right leg above knee; Z79.82 Long term (current) use of aspirin; Z79.899 Other long term (current) drug therapy; Z79.01 Long term (current) use of anticoagulants; Z95.1 Presence of aortocoronary bypass graft; Z98.890 Other specified postprocedural states; Z90.49 Acquired absence of other specified parts of digestive tract
CPT/HCPCS: 27596; 36415; 36430; 51702; 80048; 80053; 85025; 86850; 86900; 86901; 87070; 87150; 87186; 88304; 88311; 94761; 96365; 96366; 96375; 96376; 99285; 99999; G0378; J1170; J2704; P9016

== ENCOUNTER 2024-03-20 14:43 | Outpatient (REF) | payer MEDICARE, SELFPAY ==
[2024-03-20 14:57] LABS: Hematocrit 30.1 % (42.0-54.0); Hemoglobin 8.7 g/dL (14.0-18.0); Mean Corpuscular HGB Conc 28.9 g/dL (29.9-35.2); Mean Corpuscular Hemoglobin 26.8 pg (25.9-34.0); Mean Corpuscular Volume 92.6 fL (80.0-94.0); Mean Platelet Volume 10.3 fL (9.5-13.5); Platelet Count 95 10^3/uL (150-450); Red Blood Count 3.25 10^6/uL (4.70-6.10); Red Cell Distribution Width 18.4 % (11.0-15.0); White Blood Count 3.3 10^3/uL (4.0-11.0)
== END 2024-03-20 14:44 | disposition home or self-care (01) ==
LOC: LAB 14:43
PROVIDERS: PCP Internal Medicine; Visit Provider Internal Medicine
DX: K92.2 Gastrointestinal hemorrhage, unspecified (principal)
CPT/HCPCS: 36415; 85027

== ENCOUNTER 2024-03-22 10:49 | Outpatient (OUT) | payer MEDICARE, SELFPAY ==
--- NOTE | 2024-03-22 11:06 | XR_ITS ---
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 There is a permeative pattern of the femoral diaphysis with cortical thinning. Lucency through the intertrochanteric region of the right hip is suspicious for a fracture. The hip is intact. SOFT TISSUES:Negative. No visible soft tissue swelling. EFFUSION:None visible. OTHER: Vascular stents, vascular calcifications XR/XR femur RT 2V IMPRESSION: Permanent pattern of the remaining femoral diaphysis suspicious for osteomyelitis Intertrochanteric lucency possibly representing a fracture Electronically authenticated by: MARIO CULLEN Date: 03/22/2024 11:31
== END 2024-03-22 10:50 | disposition home or self-care (01) ==
PROVIDERS: PCP Internal Medicine; Visit Provider Student in an Organized Health Care Education/Training Program
DX: M86.9 Osteomyelitis, unspecified (principal)
CPT/HCPCS: 73552

== ENCOUNTER 2024-03-27 11:23 | Outpatient (REF) | payer MEDICARE, SELFPAY ==
[2024-03-27 11:44] LABS: Hematocrit 31.1 % (42.0-54.0); Hemoglobin 9.5 g/dL (14.0-18.0); Mean Corpuscular HGB Conc 30.5 g/dL (29.9-35.2); Mean Corpuscular Hemoglobin 28.1 pg (25.9-34.0); Mean Platelet Volume 11.1 fL (9.5-13.5); Platelet Count 116 10^3/uL (150-450); Red Blood Count 3.38 10^6/uL (4.70-6.10); Red Cell Distribution Width 18.3 % (11.0-15.0); White Blood Count 3.7 10^3/uL (4.0-11.0)
[2024-03-27 12:34] LABS: Basophils Abs Manual 0.07 10^3/uL (0.00-0.10); Eosinophils Absolute Manual 0.03 10^3/uL (0.00-0.70); Lymphocytes Absolute Manual 0.59 10^3/uL (1.20-3.80); Monocytes Absolute Manual 0.22 10^3/uL (0.30-0.80); Ovalocytes 1+; Segmented Neut Absolute Manual 2.73 10^3/uL (1.4-6.5)
== END 2024-03-27 11:24 | disposition home or self-care (01) ==
LOC: LAB 11:23
PROVIDERS: PCP Internal Medicine; Visit Provider Internal Medicine
DX: D64.9 Anemia, unspecified (principal)
CPT/HCPCS: 36415; 85007; 85027

== ENCOUNTER 2024-04-03 11:20 | Outpatient (REF) | payer MEDICARE, SELFPAY ==
[2024-04-03 11:45] LABS: Basophils Percent Auto 0.6 % (0.2-2.0); Eosinophils Percent Auto 1.2 % (0.9-7.0); Hematocrit 32.7 % (42.0-54.0); Hemoglobin 9.8 g/dL (14.0-18.0); Immature Granulocytes Abs Auto 0.01 10^3/uL (0.00-0.03); Immature Granulocytes Pct Auto 0.3 % (0.0-0.5); Lymphocytes Absolute Auto 0.5 10^3/uL (1.2-3.8); Lymphocytes Percent Auto 14.8 % (20.5-60.0); Mean Corpuscular Hemoglobin 27.7 pg (25.9-34.0); Mean Corpuscular Volume 92.4 fL (80.0-94.0); Mean Platelet Volume 11.2 fL (9.5-13.5); Monocytes Absolute Auto 0.4 10^3/uL (0.3-0.8); Monocytes Percent Auto 11.7 % (1.7-12.0); Neutrophils Absolute Auto 2.3 10^3/uL (1.4-6.5); Neutrophils Percent Auto 71.4 % (43.0-75.0); Platelet Count 118 10^3/uL (150-450); Red Blood Count 3.54 10^6/uL (4.70-6.10); Red Cell Distribution Width 18.2 % (11.0-15.0); White Blood Count 3.2 10^3/uL (4.0-11.0)
== END 2024-04-03 11:21 | disposition home or self-care (01) ==
LOC: LAB 11:20
PROVIDERS: PCP Internal Medicine; Visit Provider Internal Medicine
DX: D64.9 Anemia, unspecified (principal)
CPT/HCPCS: 36415; 85025

== ENCOUNTER 2024-04-03 12:40 | Outpatient (OUT) | payer MEDICARE, SELFPAY ==
--- NOTE | 2024-04-03 | MR_ITS ---
The [address] [address] Patient Name: MAX SANCHEZ MRN: [id number] date: 1945 Sex: M Assigned Patient Location: MRI Current Patient Location: LAB Accession/Order Number: [id number] Exam Date: 04/03/2024 13:00 Report Date: 04/05/2024 09:36 At the request of: TAIWO JOHNSON Procedure: MR femur RT wo con EXAM: MR femur RT wo con REASON FOR EXAM: Osteomyelitis. TECHNIQUE: Multiplanar, multisequence imaging of the right femur was performed without contrast COMPARISON: Radiographs 03/22/2024. FINDINGS: Study degraded by motion. There are surgical changes from esdwn-zdp-juvb amputation. There is some abnormal marrow signal involving the amputation margin involving the distal 4 cm stricture reflecting osteomyelitis. 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 This is incompletely characterized. Atrophy and edema the right thigh musculature is nonspecific. No evidence of septic arthritis identified involving the right hip. Moderate right osteoarthritis. No drainable fluid collection or abscess. Limited evaluation the pelvic viscera is unremarkable. MR/MR femur RT wo con IMPRESSION: 1. Study degraded by motion. 2. Surgical changes from hhowj-xpb-fuud amputation. Abnormal marrow signal involving the distal 4 cm of the amputation margin raises suspicion of osteomyelitis given radiographic findings. 3. There is also partially imaged abnormal marrow edema involving the indication margin of the left femur. Cannot exclude osteomyelitis involving the right femur. 4. Nonspecific edema involving the bilateral thigh musculature, could be secondary to amputation and disuse/atrophy. No drainable fluid collection or abscess is evident. Electronically authenticated by: ALEJA ALANIS Date: 04/05/2024 09:36
== END 2024-04-03 12:41 | disposition home or self-care (01) ==
LOC: MRI 12:40
PROVIDERS: PCP Internal Medicine; Visit Provider Student in an Organized Health Care Education/Training Program
DX: M86.9 Osteomyelitis, unspecified (principal)
CPT/HCPCS: 73718

== ENCOUNTER 2024-04-13 07:47 | Outpatient (OUT) | payer MEDICARE, SELFPAY ==
--- OUTSIDE RECORDS SUMMARY | 2024-04-13 07:57 | XMS_ITS | CCD ---
Author Organization [facility] Care Team Providers Care Needle Valve Operator Name Role Phone GIAN HORTA Primary Care Unavailable GIAN HORTA Referring Unavailable JIMMY LYNN Admitting Unavailable JIMMY LYNN Attending Unavailable GIAN HORTA JR Primary Care Physician [phone] PROVIDER, UNKNOWN Admitting Unavailable PROVIDER, UNKNOWN Attending Unavailable PROVIDER, UNKNOWN Admitting Unavailable PROVIDER, UNKNOWN Attending Unavailable RULA, DR ADKINS Primary Care Unavailable EVA, DR JENNIFER Garcia Attending Unavailwillard VELASQUEZ, DR JENNIFER Garcia Admitting Unavailwillard VELASQUEZ, DR JENNIFER Garcia Consulting UnavailMARIO Schwartz Consulting Unavailable SUMANKINDONALD Consulting Unavailable VALJOHANA, DR ADKINS Primary Care Unavailable CON ., JOHN Admitting Unavailable CON ., JOHN Attending Unavailable MARIO CULLEN Consulting Unavailable LUZ NIETO Consulting Unavailable CON ., JOHN Consulting Unavailable RULA, DR ADKINS Primary Care Unavailable DIAB ., JAZZY Admitting Unavailable DIAB ., JAZZY Consulting Unavailable DIAB ., JAZZY Attending Unavailable ERWIN HURD Attending Unavailable RULA, DR ADKINS Primary Care Unavailable VICKEY, ERWIN Admitting Unavailable ERWIN HURD Consulting Unavailable MARGRET, DR MARCO A Badillo Admitting Unavailable MARGRET, DR MARCO A Badillo Attending Unavailable RULA, DR ADKINS Primary Care Unavailable JENNI, DR ANDREA Perdomo Consulting Unavailable MARGRET, DR MARCO A Badillo Consulting Unavailable Emma Panda Unavailable Unavailable Robert Gomez Unavailable Rual Freeman DO, Charles L Primary Care Provider MD Jacob Bernardo Attending Provider Jacob Bernardo Admitting Unavailable Jacob Bernardo Attending Unavailable MD Erwin Hurd Admitting Unavailable NONE, XXXX Referring Unavailable MD Erwin Hurd Attending Unavailable MD Erwin Hurd Admitting Unavailable NONE, XXXX Referring Unavailable MD Erwin Hurd Attending Unavailable MD Erwin Hurd Attending Unavailable MD Erwin Hurd Admitting Unavailable NONE, XXXX Referring Unavailable MD Erwin Hurd Attending Unavailable MD Erwin Hurd Admitting Unavailable MD Erwin Hurd Referring Unavailable MD Erwin Hurd Attending Unavailable MD Erwin Hurd Admitting Unavailable Bekah LAUREN Attending Unavailable MD Erwin Hurd Attending Unavailable MD Erwin Hurd Admitting Unavailable MD Erwin Hurd Referring Unavailable KAMMEYERANAIS A Referring Unavailable VALONE JR, GIAN L Primary Care Unavailable NATY MANNING Attending Unavailable VALONE JR, GIAN L Referring Unavailable VALONE JR, GIAN L Primary Care Unavailable KAMMEYERANAIS A Referring Unavailable VALONE JR, GIAN L Primary Care Unavailable VALONE JR, GIAN L Primary Care Unavailable JACKIE FERNANDEZ Attending Unavailable VALONE JR, GIAN L Referring Unavailable VALONE JR, GIAN L Primary Care Unavailable NATY MANNING Attending Unavailable VALONE JR, GIAN L Referring Unavailable VALONE JR, GIAN L Primary Care Unavailable KAMMEANAIS CRUZ A Referring Unavailable VALONE JR, GIAN L Primary Care Unavailable KAMMEYERANAIS A Referring Unavailable VALONE JR, GIAN L Primary Care Unavailable KAMMEYER, ANAIS A Referring Unavailable VALONE JR, GIAN L Primary Care Unavailable VALONE JR, GIAN L Referring Unavailable VALONE JR, GIAN L Primary Care Unavailable VICKEY, MOHAMED F Attending Unavailable VALONE JR, GIAN L Referring Unavailable VALONE JR, GIAN L Primary Care Unavailable VICKEY, MOHAMED F Attending Unavailable VALONE JR, GIAN L Referring Unavailable VALONE JR, GIAN L Primary Care Unavailable VICKEY, MOHAMED F Attending Unavailable VALONE JR, GIAN L Referring Unavailable VALONE JR, GIAN L Primary Care Unavailable VICKEY, MOHAMED F Attending Unavailable VALONE JR, GIAN L Referring Unavailable VALONE JR, GIAN L Primary Care Unavailable DESTINY PITTMAN Attending Unavailable MONA JAMESON Referring Unavailab TANJA Dotson Attending Unavailable ERWIN HURD Attending Unavailable PAUL REYES Attending Unavailable TANJA NUGENT Attending Unavailable EDUARDO, EVELYN Admitting Unavailable MONA JAMESON Consulting Unavailab JOHNATHAN Stoll Attending Unavailable ROSSANA MIRZA Referring Unavailable VICKEY, MOHAMED Admitting Unavailable VICKEY, MOHBINH Attending Unavailable ANAIS VAZQUEZ Consulting Unavailable NAZZAL, ALEXANDRIER Attending Unavailable NAZZAL, MUNIER Admitting Unavailable NAZZAL, MUNIER Attending Unavailable JONNY, LEXUS Referring Unavailable GANGWANI, MONA MANE Referring Unavailab le VICKEY, MOHBINH Attending Unavailable NUGENT, TANJA Referring Unavailable NAZZAL, MUNIER Referring Unavailable VICKEY, MOHAMED Referring Unavailable PERSALINA MEZA Attending Unavailable AIYEAbyUNMI, JIMMY Attending Unavailable GARCIA, JAVIER Attending Unavailable NUGENT, TANJA Attending Unavailable VICKEY, ERWIN Attending Unavailable NUGENT, TANJA Attending Unavailable NAZZAL, MUNIER Referring Unavailable NAZZAL, MUNIER Admitting Unavailable NAZZAL, MUNIER Attending Unavailable CRISTOPHER, AYSIR Azar Referring Unavailable VICKEY, MOHAMED Admitting Unavailable VICKEY, MOHAMED Attending Unavailable TOFLINSKI, REBECCA Referring Unavailable GANGWANI, MONA MANE Referring Unavailab le ALEJANDRO, JUHI Referring Unavailable NUGENT, TANJA Referring Unavailable CLIFFEL, ELIANA Referring Unavailable ENIX, ANGELES Attending Unavailable Allergies Allergy Classification Reported Allergen(s) Allergy Type Date of Onset Reaction(s) Facility (7 sources) Codeine; Translations: [codeine] Drug Allergy 08-20-20 09 [facility] Repository (8 sources) Iodine; Translations: [iodine] Drug Allergy 08-20-20 09 Unknown [facility] Repository (3 sources) Levamisole; Translations: [Phenergan] Drug Allergy 04-03-20 21 [facility] Repository (4 sources) Shellfish; Translations: [shellfish] Drug allergy (disorder) 08-20-20 09 Vomiting (disorder) [facility] Repository (20 sources) Codeine; Translations: [codeine] Drug Allergy 10-07-20 22 Vomitus (substance), Vomiting [facility] (18 sources) Iodine; Translations: [iodine] Drug Allergy 09-30-20 22 Vomitus (substance), Vomiting [facility] (20 sources) Promethazine; Translations: [promethazine] Drug Allergy 10-07-20 22 Vomitus (substance), Vomiting [facility] (1 source) Iodine and Iodide Containing Products Drug allergy (disorder) [facility] Repository (6 sources) Shellfish; Translations: [shellfish] Drug allergy 10-07-20 Vomiting (disorder), Vomiting [facility] (6 sources) DAPTOmycin; Translations: [DAPTOMYCIN] Drug Allergy 07-19-20 [facility] [employer] Other (3 sources) cefepime; Translations: [CEFEPIME] [facility] Iodinated Contrast Media; Translations: [IODINATED CONTRAST MEDIA] Propensity to adverse reactions to drug 04-07-20 [facility] (3 sources) Shellfish; Translations: [shellfish derived] Allergy to substance 10-07-20 [facility] (1 source) Codeine Drug Allergy 07-19-20 [facility] (1 source) DAPTOmycin Drug Allergy 07-19-20 [facility] (1 source) Iodine Drug Allergy 07-19-20 [facility] (1 source) Promethazine Drug Allergy 07-19-20 [facility] (2 sources) SHELLFISH CONTAINING PRODUCTS; Translations: [SHELLFISH CONTAINING PRODUCTS] Propensity to adverse reactions to food (disorder) [facility] Medications Current Medications Medication Drug Class(es) Dates Sig (Normalized) Sig (Original) acetaminophen 325 mg oral tablet (5 sources) Start: 03-10-2023 take 2 tablets by mouth every six hours as needed for pain acetaminophen 325 mg Tab 650 mg = 2 tab(s), Oral, q6hr, PRN Pain, Refills(s) 0 Start Date: 03/10/23 Status: Ordered take 1 tablet by joyce th every six hours as needed for pain [...] mouth in the evening. 0 Active Biotin 10263 MCG as directed Orally bid Active carvedilol [...] 11/26/22 Status: Ordered take 2 tablets by [facility] in the morning cholecalciferol, vitamin D3, 10 mcg (400 unit) capsule Take 2 tablets by mouth in the morning. 0 Active take 1 capsule [facility] [...] 2 cap(s), Refills(s) 0, [facility]: [id number], 168, cm, 01/06/23 11:42:00 EDT, Height/Length Dosing, [...] 11/26/22 Status: Ordered take 0.5 tablet by out once daily Zetia 10 MG 1/2 tablet [...] daily Start Date: 11/26/22 Status: Ordered nystatin 432404 unt/ml oral suspension (2 sources) Polyene Antifungal [...] 07/19/2023 Active take 1 tablet by joyce every twenty-four hours Ondansetron HCl 4 MG [...] 3 tab(s), Refills(s) 0, [facility]: [facility] #[id number], 168, cm, 01/06/23 11:42:00 EDT, Height/Length Dos... [...] cholesterol Start Date: 04/08/23 Status: Ordered sennosides, alf 8.6 mg oral tablet (2 sources) Start: [...] day(s), # 180 tab(s), Refills(s) 3, Pharmacy: [facility] #[id number], 168, cm, 05/09/23 9:37:00 EDT, Height/Length Dosing, 51.5, kg, 04/08/23 8:25:00 EDT, Weight Dosing Start Date: 05/09/23 Stop Date: 05/03/24 Status: Ordered Start: 02-10-2023 End: 03-12-2023 take 1 tablet by mouth twice daily cilostazol 100 mg Tab 100 mg = 1 tab(s), Oral, BID, X 30 day(s), # 60 tab(s), Refills(s) 0, Pharmacy: [facility] #[id number], 168, cm, 01/06/23 11:42:00 EDT, Height/Length Dosing, [...] (2 sources) Start: 03-10-2023 oxymetazoline Nasal 0.05% [place] 2 spray(s), Nasal, BID Other (see comment), Refill(s) 0, Nose bleeds - prn use Start Date: 03/10/23 Status: Ordered Problems Active Problems Problem Classification Problem Date Documented Da te Episodic/Chronic Aortic; peripheral; and visceral artery aneurysms (1 source) Aneurysm of artery of lower extremity; Translations: [ANEURYSM ARTERY OF LOWER EXTREMITY] Onset: 3 Chronic Cardiac dysrhythmias (4 sources) Paroxysmal atrial fibrillation; Translations: [Unspecified atrial fibrillation] Onset: 3 Chronic Chronic ulcer of skin (1 source) Pressure ulcer of back; Translations: [Pressure ulcer of unspecified part of back, unspecified stage] Onset: 3 Chronic Complication of device; implant or graft (1 source) Other specified complication of vascular prosthetic devices, implants and grafts, initial encounter; Translations: [OTH COMP VASC PROSTH DEV GRAFT INIT] Onset: 3 Chronic Coronary atherosclerosis and other heart disease (2 sources) Atherosclerotic heart disease of [place] coronary artery without angina pectoris; Translations: [Atherosclerotic heart disease of [place] coronary artery without angina pectoris] Onset: 4 Chronic Coronary atherosclerosis and other heart disease (2 sources) Presence of aortocoronary bypass graft; Translations: [Presence of aortocoronary bypass graft] Onset: 4 Episodic Deficiency and other anemia (1 source) Anemia; Translations: [Anemia in other chronic diseases classified elsewhere] Onset: 3 Chronic Deficiency and other anemia (2 sources) Anemia; [...] 3 Chronic Gangrene (2 sources) Atherosclerosis of [place] arteries of extremities with gangrene, left leg; Translations: [Atherosclerosis of [place] arteries of extremities with gangrene, left leg] Onset: 4 Chronic Genitourinary symptoms and ill-defined conditions (1 source) Retention of urine; Translations: [Other retention of urine] Onset: 3 Episodic Infective arthritis and osteomyelitis (except that caused by tuberculosis or sexually transmitted disease) (2 sources) Chronic osteomyelitis with draining sinus, right femur; Translations: [Other chronic osteomyelitis, right thigh] Onset: 4 Chronic Malaise and fatigue (1 source) Weakness; Translations: [...] 3 Episodic Other aftercare (1 source) terminal worker (current) use of aspirin; Translations: [[facility] CURRENT USE OF ASPIRIN] Onset: 3 Episodic Other aftercare (1 source) intermediate (current) use of antithrombotics/antipl atelets; Translations: [[facility] ANTITHROMBOT/ANTIPLATL ETS] Onset: 3 Episodic Other aftercare (1 source) Other terminal system operator (current) drug therapy; Translations: [OTH [facility] CURRENT DRUG THERAPY] Onset: 3 Episodic Other aftercare (1 source) terminal worker (current) use of oral hypoglycemic drugs; Translations: [[facility] USE ORAL HYPOGLYCEMIC DX] Onset: 3 Episodic [...] CLASSIFIED] Onset: 3 Episodic Other circulatory disease (1 [...] (6 sources) 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-25-2023 Chronic Other upper respiratory disease (1 source) Bleeding from nose; Translations: [Epistaxis] Onset: 3 Episodic Other upper respiratory disease (1 source) Epistaxis; Translations: [Epistaxis] Onset: 4 Episodic [place]-; endo-; and myocarditis; cardiomyopathy (except that caused by tuberculosis or sexually transmitted disease) (1 source) Endocarditis, valve unspecified; Translations: [Endocarditis, valve unspecified] Onset: 4 Chronic Peripheral and visceral atherosclerosis (17 sources) Peripheral vascular disease, unspecified; Translations: [Atherosclerosis of [place] arteries of extremities with rest pain, left [...] source) EMS Onset: 4 Unclassified (1 source) Results Onset: 4 Unclassified (1 source) S/P AKA Onset: 4 Unclassified (1 source) Elevation of [...] posthemorrhagic anemia; Translations: [Acute posthemorrhagic anemia] Onset: 4 Episodic Complication of device; implant or graft (6 sources) 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, initial encounter; Translations: [Infection and inflammatory reaction due to other cardiac and vascular devices, implants and grafts, initial encounter] Onset: 3 Episodic Complications of surgical procedures or medical care (4 sources) Postoperative complication; Translations: [Other postprocedural complications and disorders of genitourinary system] Onset: 3 Episodic Deficiency and other anemia (4 sources) Anemia, unspecified; Translations: [ANEMIA UNSPECIFIED] Onset: 3 Episodic Gangrene (2 sources) Gangrene, not elsewhere classified; Translations: [Gangrene, not elsewhere classified] Onset: 4 Episodic Gastrointestinal hemorrhage (3 sources) Gastrointestinal hemorrhage, unspecified; Translations: [Gastrointestinal hemorrhage, unspecified] Onset: 4 Episodic Open wounds of extremities (2 sources) Unspecified open wound of unspecified toe(s) with damage to nail, initial encounter; Translations: [Unspecified open wound of unspecified toe(s) with damage to nail, initial encounter] Onset: 3 Episodic Other aftercare (3 sources) intermediate (current) use of anticoagulants; Translations: [[facility] CURRNT USE ANTICOAGULANTS] Onset: 3 Episodic Other aftercare (2 sources) Encounter for follow-up examination after completed treatment for conditions other than malignant neoplasm; Translations: [Encounter for follow-up examination after completed treatment for conditions other than malignant neoplasm] Onset: 3 Episodic Other circulatory disease (3 sources) Other disorder of circulatory system; Translations: [OTHER DISORDER CIRCULATORY SYSTEM] Onset: 3 Episodic Other connective tissue disease (1 source) Pain in left leg; Translations: [PAIN IN LEFT LEG] Onset: 3 Episodic Other connective tissue disease (1 source) Other specified soft tissue disorders; Translations: [OTHER SPEC SOFT TISSUE DISORDERS] Onset: 3 Episodic Other connective tissue disease (2 sources) Other muscle spasm; Translations: [Other muscle spasm] Onset: 3 Episodic Other injuries and conditions due to external causes (2 sources) Other injury of unspecified body region, initial encounter; Translations: [Other injury of unspecified body region, initial encounter] Onset: 3 Episodic Other screening for suspected conditions (not mental disorders or infectious disease) (2 sources) Other specified abnormal findings of blood chemistry; Translations: [Other specified abnormal findings of blood chemistry] Onset: 4 Episodic Skin and subcutaneous tissue infections (2 sources) Local infection of the skin and subcutaneous tissue, unspecified; Translations: [Local infection of the skin and subcutaneous tissue, unspecified] Onset: 3 Episodic Unclassified (1 source) Elevation of levels of liver transaminase levels; Translations: [Elevation of levels of liver transaminase levels] Onset: 4 Results Test Name Value Interpretation Reference Range Facility CBC AND AUTO DIFFon 03-13-20 24 ABSOLUTE BASOPHIL 0.0 X10E9/L Normal 0.0-0.2 [facility] Comment on above: Performed By: #### C BCA, 3094-0, BAIT PAINTER, 4092-3 #### [facility] ([id number]) [address] [place] [address], [place] [address] ABSOLUTE NEUTROPHIL 2.6 X10E9/L Normal 1.5-6.6 [facility] Comment on above: Performed By: #### Sammy RILEY, 309-0, BAIT PAINTER, 4091-12 #### [facility] ([id number]) [address] [place] [address] 03938 Basophils/100 WBC (Bld) 0.8 % Normal [facility] Comment on above: Performed By: #### Sammy RILEY, 309-0, BAIT PAINTER, 4091-12 #### [facility] ([id number]) [address] [place] [address] 45470 Eosinophils (Bld) [#/Vol] 0.1 10*3/uL Normal 0.0-0.[address] [facility] Comment on above: Performed By: #### Sammy RILEY, 0, BAIT PAINTER, 4091-12 #### [facility] ([id number]) [address] [place] [address] 63213 Eosinophils/100 WBC (Bld) 2.2 % Normal [facility] Comment on above: Performed By: #### Sammy RILEY, 0, BAIT PAINTER, 4091-12 #### [facility] ([id number]) [address] [place] [address] 87291 Erythrocyte distribution width (RBC) [Ratio] 19.8 % High 11.5-15.[address] [facility] Comment on above: Performed By: #### Sammy RILEY, 309-0, BAIT PAINTER, 4091-12 #### [facility] ([id number]) [address] [place] [address] 13309 Hematocrit (Bld) [Volume fraction] 27.9 % Low 39-[address] [facility] Comment on above: Performed By: #### Sammy RILEY, 309-0, BAIT PAINTER, 4091-12 #### [facility] ([id number]) [address] [place] [address] 88373 Hemoglobin (Bld) [Mass/Vol] 9.0 g/dL Low 13.0-17.[address] [facility] Comment on above: Performed By: #### Sammy RILEY, 3093-0, BAIT PAINTER, 4091-12 #### [facility] ([id number]) [address] [place] [address] 36052 Lymphocytes (Bld) [#/Vol] 0.5 10*3/uL Low 1.0-3.[address] [facility] Comment on above: Performed By: #### Sammy RILEY, 3093-0, BAIT PAINTER, 4091-12 #### [facility] ([id number]) [address] [place] [address] 49394 Lymphocytes/100 WBC (Bld) 12.2 % Normal [facility] Comment on above: Performed By: #### Sammy RILEY, 0, BAIT PAINTER, 4091-12 #### [facility] ([id number]) [address] [place] [address] 51152 MCH (RBC) [Entitic mass] 27.1 pg Normal 27-[address] [facility] Comment on above: Performed By: #### Sammy RILEY, 0, BAIT PAINTER, 4091-12 #### [facility] ([id number]) [address] [place] [address] 68235 MCHC (RBC) [Mass/Vol] 32.1 g/dL Normal 32-36 [facility] Comment on above: Performed By: #### Sammy RILEY, 3090, BAIT PAINTER, 4091-12 #### [facility] ([id number]) [address] [place] [address] 99265 MCV (RBC) [Entitic vol] 85 fL Normal 80-100 [facility] Comment on above: Performed By: #### Sammy RILEY, 309-0, BAIT PAINTER, 4091-12 #### [facility] ([id number]) [address] [place] [address] 85660 Monocytes (Bld) [#/Vol] 0.7 10*3/uL Normal 0-0.[address] [facility] Comment on above: Performed By: #### C ROSEMARY, 3094-0, BAIT PAINTER, 4091-12 #### [facility] ([id number]) [address] [place] [address] 90903 Monocytes/100 WBC (Bld) 18.0 % Normal [facility] Comment on above: Performed By: #### Sammy RILEY, 3094-0, BAIT PAINTER, 4091-12 #### [facility] ([id number]) [address] [place] [address] 90470 Neutrophils/100 WBC (Bld) 66.8 % Normal [facility] Comment on above: Performed By: #### Sammy RILEY, 309-0, BAIT PAINTER, 4091-12 #### [facility] ([id number]) [address] [place] [address] 60588 Platelet mean volume (Bld) [Entitic vol] 8.3 fL Normal 7-[address] [facility] Comment on above: Performed By: #### Sammy RILEY, 3094-0, BAIT PAINTER, 4091-12 #### [facility] ([id number]) [address] [place] [address] 98917 Platelets (Bld) [#/Vol] 138 10*3/uL Low 150-[address] [facility] Comment on above: Performed By: #### Sammy RILEY, 3094-0, BAIT PAINTER, 4091-12 #### [facility] ([id number]) [address] [place] [address] 00241 RBC COUNT 3.30 X10E12/L Low 4.10-5.[address] [facility] Comment on above: Performed By: #### Sammy RILEY, 3094-0, BAIT PAINTER, 4091-12 #### [facility] ([id number]) [address] [place] [address] 53799 WBC (Bld) [#/Vol] 3.9 10*3/uL Low 4.0-11.0 [facility] Comment on above: Performed By: #### Sammy RILEY, 3094-0, BAIT PAINTER, 4091-12 #### [facility] ([id number]) [address] [place] [address] 06802 COMPLETE BLOOD COUNTon 03-06 Erythrocyte distribution width (RBC) [Ratio] 19.0 % High 11.5-15.[address] [facility] Comment on above: Performed By: #### Sammy RILEY, 3094-0, BAIT PAINTER, 4091-12 #### [facility] ([id number]) [address] [place] [address] 96409 Hematocrit (Bld) [Volume fraction] 28.1 % Low 39-[address] [facility] Comment on above: Performed By: #### Sammy RILEY, 3094-0, BAIT PAINTER, 4091-12 #### [facility] ([id number]) [address] [place] [address] 70280 Hemoglobin (Bld) [Mass/Vol] 9.1 g/dL Low 13.0-17.[address] [facility] Comment on above: Performed By: #### Sammy RILEY, 3094-0, BAIT PAINTER, 4091-12 #### [facility] ([id number]) [address] [place] [address] 66371 MCH (RBC) [Entitic mass] 26.9 pg Low 27-[address] [facility] Comment on above: Performed By: #### Sammy BCA, 3094-0, BAIT PAINTER, 4091-12 #### [facility] ([id number]) [address] [place] [address] 81594 MCHC (RBC) [Mass/Vol] 32.5 g/dL Normal 32-36 [facility] Comment on above: Performed By: #### Sammy RILEY, 3094-0, BAIT PAINTER, 4091-12 #### [facility] ([id number]) [address] [place] [address] 00659 MCV (RBC) [Entitic vol] 83 fL Normal 80-100 P [facility] Comment on above: Performed By: #### Sammy RILEY, 3094-0, BAIT PAINTER, 4091-3 #### [facility] ([id number]) [address] [place] [address] 05346 Platelet mean volume (Bld) [Entitic vol] 8.8 fL Normal 7-[address] [facility] Comment on above: Performed By: #### Sammy RILEY, 3094-0, BAIT PAINTER, 4091-12 #### [facility] ([id number]) [address] [place] [address] 56395 Platelets (Bld) [#/Vol] 190 10*3/uL Normal 150-[address] [facility] Comment on above: Performed By: #### Sammy RILEY, 3094-0, BAIT PAINTER, 4091-12 #### [facility] ([id number]) [address] [place] [address] 88871 RBC COUNT 3.40 X10E12/L Low 4.10-5.[address] [facility] Comment on above: Performed By: #### Sammy RILEY, 309-0, BAIT PAINTER, 4091-12 #### [facility] ([id number]) [address] [place] [address] 87293 WBC (Bld) [#/Vol] 5.3 10*3/uL Normal 4.0-11.0 [facility] Comment on above: Performed By: #### Sammy RILEY, 3094-0, BAIT PAINTER, 4091- #### [facility] ([id number]) [address] [place] [address] 22984 [employer] 02-23-2024 Forms [id number] F Normal [facility] Sridhar 01-19-2024 L Specimen: [id number] Received: 01/23/24 Status: RASHMI Req Num: [id number] Spec Type: Surgical Subm Dr: Jacob Bernardo MD Tissues: A Bone - Resection (LFT FEMUR BONE AND OLD INCIS) Procedures: HE/6, Gross/Micro L2, Decalcification Age/ Patient Sex Location Account Attending Physician Max Sanchez 78/M LABELL [id number] Jacob Bernardo MD SPEC NUM: [id number] RECD: 01/23/24 STATUS: RASHMI REQ NUM: [id number] HEMANT: 01/19/24- SUBM DR: Jacob Bernardo MD ENTERED: 01/23/[address] [facility] [address]: Gordo Gonzalez SPEC TYPE: Surgical DEPT: RONY DEVLIN ORDERED: HE/6, Gross/Micro L2, Decalcification ORDERED: HE/6, Gross/Micro L2, Decalcification Pathological Diagnosis Left femoral bone and old incision, revision excision of left stump: -Severe chronic dehiscence of the stump wound, with patchy moderate chronic ischemic degeneration of the deep soft tissue portion, including degenerated skeletal muscle bundles, and the severe superficial necrotizing open wound of the skin surface with at least mild superficial infection -All sections of the bony margin from both ends are viable, including occasional mild chronic and/or active serous degenerations of the medullary cavity, otherwise without any obvious or significant acute inflammation or osteomyelitis observed Gross Description The specimen is received in formalin, labeled with the patient's name and left femur bone and old incision . It consists of a 5.9 x 2.9 x 2.8 cm lui portion of femur with attached lui-brown soft tissue. The portion of bone contains 2 smooth, flat and unremarkable margins. No lesions or areas of abnormality are identified. Each margin is inked green and shaved revealing a hard and lui, bony cut surface. Additionally submitted in the same container is a 12.4 x 3.6 x 2.2 cm excision of lui skin. Noted on the surface is a previous, slightly ulcerated lui-brown incision containing metallic yue and measuring 9.1 x 1.0 cm. The specimen is serially sectioned revealing yellow-lui soft tissue. [employer] sections are submitted as follows: A1-A3: The margins, following decal A4: Soft tissue adherent to bone A5?A6: Skin excision to include ulcer with underlying soft tissue Specimen: [id number] Received: 01/23/24 Status: RASHMI Vargas Num: [id number] Spec Type: Surgical Subm Dr: Jacob Bernardo MD Tissues: A Bone - Resection (LFT FEMUR BONE AND OLD INCIS) Procedures: , Gross/Micro L2, Decalcification Patient: Max Sanchez [id number] (Continued) Specimen: [id number] Received: 01/23/24 (Continued) Gross Description (Continued) Signed (signature on file) Rosaline Coffey MD 01/26/24 1624 Specimen: [id number] Received: 01/23/24 Status: RASHMI Vargas Num: [id number] Spec Type: Surgical Subm Dr: Jacob Bernardo MD Tissues: A Bone - Resection (LFT FEMUR BONE AND OLD INCIS) Procedures: HE/6, Gross/Micro L2, Decalcification Patient: SanchezMax [id number] (Continued) Specimen: [id number] Received: 01/23/24 (Continued) Gross Description (Continued) RG/CYC CPT Codes [id number] bone and skin bone and skin Specimen: [id number] Received: 01/23/24 Status: RASHMI Vargas Num: [id number] Spec Type: Surgical Subm Dr: Jacob Bernardo MD Tissues: A Bone - Resection (LFT FEMUR BONE AND OLD INCIS) Procedures: HE/6, Gross/Micro L2, Decalcification Patient: Max Sanchez [id number] (Continued) Signed (signature on file) Rosaline Coffey MD 01/26/244 Normal [facility] Follow-Upon 01-04-2024 Follow-Up Normal [facility] Orders Onlyon 01-04-2024 Orders Only Normal [facility] BASIC METABOLIC PANELon 12-08 Anion gap [Moles/Vol] 13 mmol/L Normal 7-20 [facility] Comment on above: Performed By: #### L [id number] ####[facility] ([facility])[address] [place] [address] Calcium [Mass/Vol] 8.3 mg/dL Low 8.6-10.3 [facility] Comment on above: Performed By: #### L [id number] ####[facility] ([facility])[address] [place] [address] Chloride [Moles/Vol] 97 mmol/L Low 98-107 [facility] Comment on above: Performed By: #### L [id number] ####[facility] ([facility])[address] [place] [address] CO2 [Moles/Vol] 22 mmol/L Normal 21-[address] [facility] Comment on above: Performed By: #### L [id number] ####[facility] ([facility])[address] [place] [address] Creatinine [Mass/Vol] 0.44 mg/dL Low 0.70-1.30 [facility] Comment on above: Performed By: #### L [id number] ####[facility] ([facility])[address] [place] [address] GLOMERULAR FILTRATION RATE ML/MIN/1.73 SQ M.PREDICTED 109.2 mL/min/1.73m*2 Normal >60.0 [facility] Comment on above: Result Comment: [facility]???s estimated glomerular filtration rate (eGFR) will [...] of individuals. Performed By: #### L [id number] ####[facility] ([facility])[address] [place] [address] Glucose [Mass/Vol] 112 mg/dL High 70-100 [facility] Comment on above: Performed By: #### L [id number] ####[facility] ([facility])[address] [place] [address] Potassium [Moles/Vol] 3.8 mmol/L Normal 3.5-5.1 [facility] Comment on above: Performed By: #### L [id number] ####[facility] ([facility])[address] [place] [address] Sodium [Moles/Vol] 128 mmol/L Low 136-145 [facility] Comment on above: Performed By: #### L [id number] ####[facility] [place] [address] Urea nitrogen [Mass/Vol] 16 mg/dL Normal 7-25 [facility] Comment on above: Performed By: #### L [id number] ####[facility] ([facility])[address] [place] [address] UREA NITROGEN/CREATININE (MASS RATIO) IN SER/PLAS 36.4 Normal [facility] Comment on above: Performed By: #### L [id number] ####[facility] [place] [address] CBCon 12-24-2023 Erythrocyte distribution width (RBC) [Ratio] 18.3 % High 11.5-15.0 [facility] Comment on above: Performed By: #### L [id number] ####[facility] ([facility] [place] [address] ERYTHROCYTE MEAN CORPUSCULAR HEMOGLOBIN CONCENTRATION (G/DL) BY AUTOMATED 30.9 g/dL Low 32.0-35.0 [facility] Comment on above: Performed By: #### L [id number] ####[facility] ([facility])[address] [place] [address] Hematocrit (Bld) [Volume fraction] 24.9 % Low 39.0-55.0 [facility] Comment on above: Performed By: #### L [id number] ####[facility] ([facility])[address] [place] [address] Hemoglobin (Bld) [Mass/Vol] 7.7 g/dL Low 13.0-17.0 [facility] Comment on above: Performed By: #### L [id number] ####[facility] ([facility])[address] [place] [address] MCH (RBC) [Entitic mass] 27.1 pg Normal 27.0-33.0 [facility] Comment on above: Performed By: #### L [id number] ####[facility] ([facility])[address] [place] [address] MCV (RBC) [Entitic vol] 87.7 fL Normal 82.0-98.0 [facility] Comment on above: Performed By: #### L [id number] ####[facility] ([facility])[address] [place] [address] PLATELETS (10*3/UL) IN BLOOD AUTOMATED COUNT 172 10*3/uL Normal 150-400 [facility] Comment on above: Performed By: #### L [id number] ####[facility] ([facility])[address] [place] [address] RBC (Bld) [#/Vol] 2.84 10*6/uL Low 4.20-5.70 [facility] Comment on above: Performed By: #### L [id number] ####[facility] ([facility])[address] [place] [address] WBC (Bld) [#/Vol] 9.38 10*3/uL Normal 4.00-10.60 [facility] Comment on above: Performed By: #### L [id number] ####[facility] ([facility])[address] [place] [address] MAGNESIUMon 12-24-2023 Magnesium [Mass/Vol] 1.8 mg/dL Low 1.9-2.7 [facility] Comment on above: Performed By: #### L [id number] ####[facility] ([facility])[address] [place] [address] NURSNOTEon 12-24-2023 NURSNOTE Called [facility]. Left phone number with person who answered. Said nurse would call me back. Normal [facility] PHOSPHORUSon 12-24-2023 Magnesium [Mass/Vol] 2.8 mg/dL Normal 2.5-5.0 [facility] Comment on above: Performed By: #### L [id number] ####[facility] ([facility])[address] [place] [address] POCT GLUCOSE METER UNSOLICIT ED RESULTSon 12-24-2023 Glucose [Mass/Vol] 192 mg/dL High 70-105 [facility] Comment on above: Order Comment: Waive d Testing in the ED is performed under the ED CLIA certificate #[id number]. Result Comment: [email or web address] [email or web address] Performed By: #### L [id number] ####[facility] ([facility])[address] [place] [address] Glucose [Mass/Vol] 135 mg/dL High 70-105 [facility] Comment on above: Order Comment: Waive d Testing in the ED is performed under the ED CLIA certificate #[id number]. Result Comment: [email or web address] [email or web address] Performed By: #### L [id number] ####[facility] ([facility])[address] [place] [address] 30on 12-23-2023 30 Normal [facility] 30 Normal [facility] 30 Normal [facility] BASIC METABOLIC PANELon 12-08 Anion gap [Moles/Vol] 14 mmol/L Normal 7-20 [facility] Comment on above: Performed By: #### L [id number] ####[facility] ([facility])[address] [place] [address] Calcium [Mass/Vol] 8.3 mg/dL Low 8.6-10.3 [facility] Comment on above: Performed By: #### L [id number] ####[facility] ([facility])[address] [place] [address] Chloride [Moles/Vol] 95 mmol/L Low 98-107 [facility] Comment on above: Performed By: #### L [id number] ####[facility] ([facility])[address] [place] [address] CO2 [Moles/Vol] 23 mmol/L Normal 21-[address] [facility] Comment on above: Performed By: #### L [id number] ####[facility] ([facility])[address] [place] [address] Creatinine [Mass/Vol] 0.45 mg/dL Low 0.70-1.30 [facility] Comment on above: Performed By: #### L [id number] ####[facility] ([facility])[address] [place] [address] GLOMERULAR FILTRATION RATE ML/MIN/1.73 SQ M.PREDICTED 108.4 mL/min/1.73m*2 Normal >60.0 [facility] Comment on above: Result Comment: [facility]???s estimated glomerular filtration rate (eGFR) will [...] of individuals. Performed By: #### L [id number] ####[facility] ([facility])[address] [place] [address] Glucose [Mass/Vol] 104 mg/dL High 70-100 [facility] Comment on above: Performed By: #### L [id number] ####[facility] ([facility])[address] [place] [address] Potassium [Moles/Vol] 3.7 mmol/L Normal 3.5-5.1 [facility] Comment on above: Performed By: #### L [id number] ####[facility] ([facility])[address] [place] [address] Sodium [Moles/Vol] 128 mmol/L Low 136-145 [facility] Comment on above: Performed By: #### L [id number] ####[facility] ([facility])[address] [place] [address] Urea nitrogen [Mass/Vol] 11 mg/dL Normal 7-25 [facility] Comment on above: Performed By: #### L [id number] ####[facility] ([facility])[address] [place] [address] UREA NITROGEN/CREATININE (MASS RATIO) IN SER/PLAS 24.4 Normal [facility] Comment on above: Performed By: #### L [id number] ####[facility] ([facility])[address] [place] [address] CBCon 12-23-2023 Erythrocyte distribution width (RBC) [Ratio] 18.4 % High 11.5-15.0 [facility] Comment on above: Performed By: #### L [id number] ####[facility] [place] [address] ERYTHROCYTE MEAN CORPUSCULAR HEMOGLOBIN CONCENTRATION (G/DL) BY AUTOMATED 30.1 g/dL Low 32.0-35.0 [facility] Comment on above: Performed By: #### L [id number] ####[facility] ([facility] [place] [address] Hematocrit (Bld) [Volume fraction] 26.6 % Low 39.0-55.0 [facility] Comment on above: Performed By: #### L [id number] ####[facility] ([facility] [place] [address] Hemoglobin (Bld) [Mass/Vol] 8.0 g/dL Low 13.0-17.0 [facility] Comment on above: Performed By: #### L [id number] ####[facility] ([facility])[address] [place] [address] MCH (RBC) [Entitic mass] 26.8 pg Low 27.0-33.0 [facility] Comment on above: Performed By: #### L [id number] ####[facility] ([facility] [place] [address] MCV (RBC) [Entitic vol] 89.0 fL Normal 82.0-98.0 [facility] Comment on above: Performed By: #### L [id number] ####[facility] ([facility])[address] [place] [address] PLATELETS (10*3/UL) IN BLOOD AUTOMATED COUNT 196 10*3/uL Normal 150-400 [facility] Comment on above: Performed By: #### L [id number] ####[facility] ([facility])[address] [place] [address] RBC (Bld) [#/Vol] 2.99 10*6/uL Low 4.20-5.70 [facility] Comment on above: Performed By: #### L [id number] ####[facility] ([facility])[address] [place] [address] WBC (Bld) [#/Vol] 13.04 10*3/uL High 4.00-10.60 [facility] Comment on above: Performed By: #### L [id number] ####[facility] ([facility])[address] [address] DSon 12-23-2023 DS Normal [facility] MAGNESIUMon 12-23-2023 Magnesium [Mass/Vol] 1.9 mg/dL Normal 1.9-2.7 [facility] Comment on above: Performed By: #### L [id number] ####[facility] ([facility])[address] [place] [address] PHOSPHORUSon 12-23-2023 Magnesium [Mass/Vol] 3.0 mg/dL Normal 2.5-5.0 [facility] Comment on above: Performed By: #### L [id number] ####[facility] ([facility])[address] [place] [address] POCT GLUCOSE METER UNSOLICIT ED RESULTSon 12-23-2023 Glucose [Mass/Vol] 156 mg/dL High 70-105 [facility] Comment on above: Order Comment: Waive d Testing in the ED is performed under the ED CLIA certificate #[id number]. Result Comment: [email or web address] Performed By: #### L [id number] ####[facility] ([facility])[address] [place] [address] Glucose [Mass/Vol] 99 mg/dL Normal 70-105 [facility] Comment on above: Order Comment: Waive d Testing in the ED is performed under the ED CLIA certificate #[id number]. Result Comment: [email or web address] [email or web address] Performed By: #### L [id number] ####[facility] ([employer])[address] [place] [address] Glucose [Mass/Vol] 137 mg/dL High 70-105 [facility] Comment on above: Order Comment: Waive d Testing in the ED is performed under the ED CLIA certificate #[id number]. Result Comment: [email or web address] [email or web address] Performed By: #### L [id number] ####[facility] ([facility])[address] [place] [address] Glucose [Mass/Vol] 145 mg/dL High 70-105 [facility] Comment on above: Order Comment: Waive d Testing in the ED is performed under the ED CLIA certificate #[id number]. Result Comment: [email or web address] [email or web address] Performed By: #### L [id number] ####[facility] ([facility])[address] [place] [address] 30on 12-22-2023 30 Normal [facility] BASIC METABOLIC PANELon 12-08 Anion gap [Moles/Vol] 7 mmol/L Normal 7-20 [facility] Comment on above: Performed By: #### L [id number] ####[facility] ([facility])[address] [place] [address] Calcium [Mass/Vol] 8.4 mg/dL Low 8.6-10.3 [facility] Comment on above: Performed By: #### L [id number] ####[facility] [place] [address] Chloride [Moles/Vol] 102 mmol/L Normal 98-107 [facility] Comment on above: Performed By: #### L [id number] ####[facility] ([facility])[address] [place] [address] CO2 [Moles/Vol] 27 mmol/L Normal 21-[address] [facility] Comment on above: Performed By: #### L [id number] ####[facility] ([facility])[address] [place] [address] Creatinine [Mass/Vol] 0.39 mg/dL Low 0.70-1.30 [facility] Comment on above: Performed By: #### L [id number] ####[facility] ([facility])[address] [place] [address] GLOMERULAR FILTRATION RATE ML/MIN/1.73 SQ M.PREDICTED 113.2 mL/min/1.73m*2 Normal >60.0 [facility] Comment on above: Result Comment: [facility]???s estimated glomerular filtration rate (eGFR) will [...] of individuals. Performed By: #### L [id number] ####[facility] ([facility])[address] [place] [address] Glucose [Mass/Vol] 121 mg/dL High 70-100 [facility] Comment on above: Performed By: #### L [id number] ####[facility] ([facility])[address] [place] [address] Potassium [Moles/Vol] 4.0 mmol/L Normal 3.5-5.1 [facility] Comment on above: Performed By: #### L [id number] ####[facility] ([facility])[address] [place] [address] Sodium [Moles/Vol] 132 mmol/L Low 136-145 [facility] Comment on above: Performed By: #### L [id number] ####[facility] ([facility])[address] [place] [address] Urea nitrogen [Mass/Vol] 11 mg/dL Normal 7-25 [facility] Comment on above: Performed By: #### L [id number] ####[facility] ([facility])[address] [place] [address] UREA NITROGEN/CREATININE (MASS RATIO) IN SER/PLAS 28.2 Normal [facility] Comment on above: Performed By: #### L [id number] ####[facility] ([facility])[address] [place] [address] CBCon 12-22-2023 Erythrocyte distribution width (RBC) [Ratio] 18.4 % High 11.5-15.0 [facility] Comment on above: Performed By: #### L [id number] ####[facility] ([facility])[address] [place], [place] [address] ERYTHROCYTE MEAN CORPUSCULAR HEMOGLOBIN CONCENTRATION (G/DL) BY AUTOMATED 31.0 g/dL Low 32.0-35.0 [facility] Comment on above: Performed By: #### L [id number] ####[facility] ([facility])[address] [place] [address] Hematocrit (Bld) [Volume fraction] 24.2 % Low 39.0-55.0 [facility] Comment on above: Performed By: #### L [id number] ####[facility] ([facility])[address] [place] [address] Hemoglobin (Bld) [Mass/Vol] 7.5 g/dL Low 13.0-17.0 [facility] Comment on above: Performed By: #### L [id number] ####[facility] ([facility])[address] [place] [address] MCH (RBC) [Entitic mass] 27.6 pg Normal 27.0-33.0 [facility] Comment on above: Performed By: #### L [id number] ####[facility] ([facility])[address] [address] MCV (RBC) [Entitic vol] 89.0 fL Normal 82.0-98.0 [facility] Comment on above: Performed By: #### L [id number] ####[facility] ([facility])[address] [place] [address] PLATELETS (10*3/UL) IN BLOOD AUTOMATED COUNT 154 10*3/uL Normal 150-400 [facility] Comment on above: Performed By: #### L [id number] ####[facility] ([facility])[address] [place] [address] RBC (Bld) [#/Vol] 2.72 10*6/uL Low 4.20-5.70 [facility] Comment on above: Performed By: #### L [id number] ####[facility] ([facility])[address] [place] [address] WBC (Bld) [#/Vol] 7.36 10*3/uL Normal 4.00-10.60 [facility] Comment on above: Performed By: #### L [id number] ####[facility] ([facility])[address] [place] [address] CONSULTon 12-22-2023 CONSULT Normal [facility] HEMOGLOBIN A1Con 12-22-2023 Glucose [Mass/Vol] 105 mg/dL Normal [facility] Comment on above: Performed By: #### L [id number] ####[facility] ([facility])[address] [place] [address] HbA1c (Bld) [Mass fraction] 5.3 % Normal 4.0-6.0 [facility] Comment on above: Performed By: #### L [id number] ####[facility] ([facility])[address] [place] [address] LACTIC ACID WITH 4 HOUR REFL EXon 12-22-2023 LACTATE (MMOL/L) IN SER/PLAS 0.8 mmol/L Normal 0.5-2.2 [facility] Comment on above: Performed By: #### L [id number] ####[facility] ([facility])[address] [place] [address] MAGNESIUMon 12-22-2023 Magnesium [Mass/Vol] 1.7 mg/dL Low 1.9-2.7 [facility] Comment on above: Performed By: #### L [id number] ####[facility] ([facility])[address] [place] [address] PHOSPHORUSon 12-22-2023 Magnesium [Mass/Vol] 3.7 mg/dL Normal 2.5-5.0 [facility] Comment on above: Performed By: #### L [id number] ####[facility] ([facility])[address] [place] [address] POCT GLUCOSE METER UNSOLICIT ED RESULTSon 12-22-2023 Glucose [Mass/Vol] 121 mg/dL High 70-105 [facility] Comment on above: Order Comment: Waive d Testing in the ED is performed under the ED CLIA certificate #[id number]. Result Comment: [email or web address] Performed By: #### L [id number] ####[facility] ([facility])[address] [place] [address] Glucose [Mass/Vol] 170 mg/dL High 70-105 [facility] Comment on above: Order Comment: Waive d Testing in the ED is performed under the ED CLIA certificate #[id number]. Result Comment: [email or web address] Performed By: #### L [id number] ####[facility] ([facility])[address] [place] [address] Glucose [Mass/Vol] 163 mg/dL High 70-105 [facility] Comment on above: Order Comment: Waive d Testing in the ED is performed under the ED CLIA certificate #[id number]. Result Comment: [email or web address] Performed By: #### L [id number] ####[facility] [place] [address] Glucose [Mass/Vol] 136 mg/dL High 70-105 [facility] Comment on above: Order Comment: Waive d Testing in the ED is performed under the ED CLIA certificate #[id number]. Result Comment: [email or web address] Performed By: #### L [id number] ####[facility] ([facility])[address] [place] [address] ANESon 12-21-2023 ANES Normal [facility] APTTon 12-21-2023 ACTIVATED PARTIAL THROMBOPLASTIN TIME IN PPP BY COAGULATION ASSAY 37.6 Seconds High 25.0-35.0 [facility] Comment on above: Result Comment: Clin ical significance of the APTT is questionable in the presence of heparin. Performed By: #### L [id number] ####[facility] ([facility])[address] [place] [address] BASIC METABOLIC PANELon - Anion gap [Moles/Vol] 6 mmol/L Low 7-20 [facility] Comment on above: Performed By: #### L [id number] ####[facility] ([facility])[address] [place] [address] Calcium [Mass/Vol] 8.1 mg/dL Low 8.6-10.3 [facility] Comment on above: Performed By: #### L [id number] ####[facility] [place] [address] Chloride [Moles/Vol] 102 mmol/L Normal 98-107 [facility] Comment on above: Performed By: #### L [id number] ####[facility] ([facility])[address] [place] [address] CO2 [Moles/Vol] 30 mmol/L Normal 21-[address] [facility] Comment on above: Performed By: #### L [id number] ####[facility] ([facility])[address] [place] [address] Creatinine [Mass/Vol] 0.40 mg/dL Low 0.70-1.30 [facility] Comment on above: Performed By: #### L [id number] ####[facility] ([facility])[address] [place] [address] GLOMERULAR FILTRATION RATE ML/MIN/1.73 SQ M.PREDICTED 112.4 mL/min/1.73m*2 Normal >60.0 [facility] Comment on above: Result Comment: [facility]???s estimated glomerular filtration rate (eGFR) will [...] of individuals. Performed By: #### L [id number] ####[facility] ([facility])[address] [place] [address] Glucose [Mass/Vol] 187 mg/dL High 70-100 [facility] Comment on above: Performed By: #### L [id number] ####[facility] ([facility])[address] [place] [address] Potassium [Moles/Vol] 3.9 mmol/L Normal 3.5-5.1 [facility] Comment on above: Performed By: #### L [id number] ####[facility] ([facility])[address] [place] [address] Sodium [Moles/Vol] 134 mmol/L Low 136-145 [facility] Comment on above: Performed By: #### L [id number] ####[facility] ([facility])[address] [place] [address] Urea nitrogen [Mass/Vol] 11 mg/dL Normal 7-25 [facility] Comment on above: Performed By: #### L [id number] ####[facility] ([facility])[address] [place] [address] UREA NITROGEN/CREATININE (MASS RATIO) IN SER/PLAS 27.5 Normal [facility] Comment on above: Performed By: #### L [id number] ####[facility] ([facility])[address] [place] [address] CBCon 12-21-2023 Erythrocyte distribution width (RBC) [Ratio] 18.2 % High 11.5-15.0 [facility] Comment on above: Performed By: #### L [id number] ####[facility] ([facility])[address] [place] [address] ERYTHROCYTE MEAN CORPUSCULAR HEMOGLOBIN CONCENTRATION (G/DL) BY AUTOMATED 30.2 g/dL Low 32.0-35.0 [facility] Comment on above: Performed By: #### L [id number] ####[facility] ([facility])[address] [place] [address] Hematocrit (Bld) [Volume fraction] 29.1 % Low 39.0-55.0 [facility] Comment on above: Performed By: #### L [id number] ####[facility] ([facility])[address] [place] [address] Hemoglobin (Bld) [Mass/Vol] 8.8 g/dL Low 13.0-17.0 [facility] Comment on above: Performed By: #### L [id number] ####[facility] ([facility])[address] [place] [address] MCH (RBC) [Entitic mass] 27.2 pg Normal 27.0-33.0 [facility] Comment on above: Performed By: #### L [id number] ####[facility] ([facility])[address] [place] [address] MCV (RBC) [Entitic vol] 90.1 fL Normal 82.0-98.[address] [facility] [address] [facility] Comment on above: Performed By: #### L [id number] ####[facility] ([facility])[address] [place] [address] PLATELETS (10*3/UL) IN BLOOD AUTOMATED COUNT 188 10*3/uL Normal 150-400 [facility] Comment on above: Performed By: #### L [id number] ####[facility] ([facility])[address] [place] [address] RBC (Bld) [#/Vol] 3.23 10*6/uL Low 4.20-5.70 [facility] Comment on above: Performed By: #### L [id number] ####[facility] ([facility])[address] [place] [address] WBC (Bld) [#/Vol] 6.24 10*3/uL Normal 4.00-10.60 [facility] Comment on above: Performed By: #### L [id number] ####[facility] ([facility])[address] [place] [address] HISTOLOGY - TISSUE EXAMon LAB AP CASE REPORT Normal 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]Encounter for pre-operative examination [Z01.818] Result Comment: Surg ical Pathology Case: [id number] Provider: Anjelica Zapata MD Collected: 12/21/2023 1640Ordering Location: [facility] Main Operating Room Received: 12/22/2023 1002Pathologist: MONICA Marreropecimen: Leg, LEFT KNEE/LEG Performed By: #### L [id number] ####[facility] ([facility])[address] [place] [address] LAB AP CLINICAL INFORMATION Normal [facility] Comment on above: Order Comment: Pre-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 Leg. Normal [facility] Comment on above: Order Comment: Pre-o [...] artery, after decalcification7 Posterior tibial artery, after decalcificationRegan Martin' Director Of Perioperative Services Performed By: #### L [id number] ####[facility] ([facility])[address] [place] [address] LAB AP MICROSCOPIC DESCRIPTION Microscopic examination performed. 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 L eft knee and leg, amputation revision:- Gangrenous necrosis of skin and soft tissue.- Calcific atherosclerosis of major vessels.- No evidence of acute osteomyelitis.- Viable soft tissue and bone resection margins. Performed By: #### L [id number] ####[facility] ([facility])[address] [place] [address] HPon 12-21-2023 HP Normal [facility] Labon 12-21-2023 Lab Normal [facility] MRSA/MSSA DNA NASALon 2023 MRSA DNA Negative Normal Negative [facility] Comment on above: Order Comment: Testi [...] preclude nasal colonization. Performed By: #### L [id number] ####[facility] ([facility])[address] [place] [address] MSSA DNA Negative Normal Negative [facility] Comment on above: Order Comment: Testi [...] preclude nasal colonization. Performed By: #### L [id number] ####[facility] ([facility])[address] [place] [address] NURSNOTEon 12-21-2023 NURSNOTE Patient arrived to [facility] with No complaints. Call light in reach. Dinner ordered. Normal [facility] OPNOTEon 12-21-2023 OPNOTE Normal [facility] POCT GLUCOSE METER UNSOLICIT ED RESULTSon 12-21-2023 Glucose [Mass/Vol] 99 mg/dL Normal 70-105 [facility] Comment on above: Order Comment: Waive d Testing in the ED is performed under the ED CLIA certificate #[id number]. Result Comment: [email or web address] Performed By: #### L [id number] ####[facility] ([facility])[address] [place] [address] Glucose [Mass/Vol] 99 mg/dL Normal 70-105 [facility] Comment on above: Order Comment: Waive d Testing in the ED is performed under the ED CLIA certificate #[id number]. Result Comment: [email or web address] Performed By: #### L [id number] ####[facility] ([facility])[address] [place] [address] Glucose [Mass/Vol] 164 mg/dL High 70-105 [facility] Comment on above: Order Comment: Waive d Testing in the ED is performed under the ED CLIA certificate #[id number]. Result Comment: acle ment Performed By: #### L [id number] ####[facility] ([facility])[address] [place] [address] PROTIME-INRon 12-21-2023 INR IN PPP BY COAGULATION ASSAY 1.20 High 0.90-1.10 [facility] Comment on above: Result Comment: [facility] P RECOMMENDED INR FOR WARFARIN THERAPY CONDITION INRPROPHYLAXIS OF VENOUS THROMBOSIS 2-3(HIGH-RISK SURGERY)TREATMENT OF VENOUS THROMBOSIS 2-3TREATMENT OF PULMONARY EMBOLISM 2-3PREVENTION OF SYSTEMIC EMBOLISM: 2-3 ACUTE MYOCARDIAL INFARCTION TISSUE HEART VALVES VALVULAR HEART DISEASE ATRIAL FIBRILLATION RECURRENT SYSTEMIC EMBOLISMMECHANICAL HEART VALVE 2.5-3.5 FROM: ORAL ANTICOAGULANTS. MECHANISM OF ACTION, CLINICAL EFFECTIVENESS, AND OPTIMAL THERAPEUTIC RANGE. CHEST 1995;108:231S-246S. Performed By: #### L [id number] ####[facility] ([facility])[address] [place] [address] PROTHROMBIN TIME (PT) IN PPP BY COAGULATION ASSAY 15.2 Seconds High 12.3-14.8 [facility] Comment on above: Performed By: #### L [id number] ####[facility] ([facility])[address] [place] [address] TYPE AND SCREENon 12-21-2023 AB SCREEN Negative Normal [facility] Comment on above: Performed By: #### L [id number] ####[facility] BLOOD BANK, ABO group Nom (Bld) O Normal [facility] Comment on above: Performed By: #### L [id number] ####[facility], RH TYPE IN BLOOD Positive Normal [facility] Comment on above: Performed By: #### L [id number] ####[facility], Orders Onlyon 12-19-2023 Orders Only [facility] Prep for Procedureon 024 Prep for Procedure Normal [facility] Follow-Upon 12-16-2023 Follow-Up [facility] 36on 12-07-2023 36 Critical lab - Hgb - 6.8, Hematocrit - 22.8. ZOEY Mendes notified and contacted patient. [facility] Documentationon 12-07-2023 Documentation [facility] Orders Onlyon 12-07-2023 Orders Only [facility] Orders Onlyon 12-05-2023 Orders Only [facility] Telemedicineon 12-01-2023 Telemedicine [facility] Follow-Upon 11-30-2023 Follow-Up [facility] 36on 11-28-2023 36 Confirmed appointmen t change with spouse. She voiced understanding. [facility] 36 Patient is currently scheduled in person on 12/01/23. Please respond. [facility] 36on 11-24-2023 36 Patient is currently at [place] in [facility]. Dr. Gian Horta is following the patient in Rehab. Patients Ijeoma is requesting a virtual appointment due to patient recovery post leg amputation. Please Advise. [facility] Telephoneon 11-24-2023 Telephone [facility] BASIC METABOLIC PANELon 11-10 Anion gap [Moles/Vol] 12 mmol/L Normal 7-20 [facility] Comment on above: Performed By: #### L [id number] ####[facility] ([facility])[address] [place] [address] Calcium [Mass/Vol] 7.7 mg/dL Low 8.6-10.3 [facility] Comment on above: Performed By: #### L [id number] ####[facility] ([facility])[address] [place] [address] Chloride [Moles/Vol] 98 mmol/L Normal 98-107 [facility] Comment on above: Performed By: #### L [id number] ####[facility] ([facility])[address] [place] [address] CO2 [Moles/Vol] 26 mmol/L Normal 21-[address] [facility] Comment on above: Performed By: #### L [id number] ####[facility] ([facility])[address] [place] [address] Creatinine [Mass/Vol] 0.37 mg/dL Low 0.70-1.30 [facility] Comment on above: Performed By: #### L [id number] ####[facility] ([facility])[address] [place] [address] GLOMERULAR FILTRATION RATE ML/MIN/1.73 SQ M.PREDICTED 115.8 mL/min/1.73m*2 Normal >60.0 [facility] Comment on above: Result Comment: [facility]???s estimated glomerular filtration rate (eGFR) will [...] of individuals. Performed By: #### L [id number] ####[facility] ([facility])[address] [place] [address] Glucose [Mass/Vol] 103 mg/dL High 70-100 [facility] Comment on above: Performed By: #### L [id number] ####[facility] ([facility])[address] [place] [address] Potassium [Moles/Vol] 3.9 mmol/L Normal 3.5-5.1 [facility] Comment on above: Performed By: #### L [id number] ####[facility] ([facility])[address] [place] [address] Sodium [Moles/Vol] 132 mmol/L Low 136-145 [facility] [place] Comment on above: Performed By: #### L [id number] ####[facility] ([facility])[address] [place] [address] Urea nitrogen [Mass/Vol] 6 mg/dL Low 7-25 [facility] Comment on above: Performed By: #### L [id number] ####[facility] ([facility])[address] [place] [address] UREA NITROGEN/CREATININE (MASS RATIO) IN SER/PLAS 16.2 Normal [facility] Comment on above: Performed By: #### L [id number] ####[facility] ([facility])[address] [place] [address] CBC WITH AUTO DIFFERENTIALon 11-21-2023 Basophils (Bld) [#/Vol] 0.01 10*3/uL Normal 0.00-0.20 [facility] Comment on above: Performed By: #### L [id number] ####[facility] ([facility])[address] [place] [address] Basophils/100 WBC (Bld) 0.2 % Normal 0.0-1.0 [facility] Comment on above: Performed By: #### L [id number] ####[facility] ([facility])[address] [place] [address] Eosinophils (Bld) [#/Vol] 0.01 10*3/uL Normal 0.00-0.50 [facility] Comment on above: Performed By: #### L [id number] ####[facility] ([facility])[address] [place] [address] Eosinophils/100 WBC (Bld) 0.2 % Normal 0.0-6.0 [facility] Comment on above: Performed By: #### L [id number] ####[facility] ([facility])[address] [place] [address] Erythrocyte distribution width (RBC) [Ratio] 17.0 % High 11.5-15.0 [facility] Comment on above: Performed By: #### L [id number] ####[facility] ([facility])[address] [place] [address] ERYTHROCYTE MEAN CORPUSCULAR HEMOGLOBIN CONCENTRATION (G/DL) BY AUTOMATED 31.6 g/dL Low 32.0-35.0 [facility] Comment on above: Performed By: #### L [id number] ####[facility] ([facility])[address] [place] [address] Hematocrit (Bld) [Volume fraction] 25.6 % Low 39.0-55.0 [facility] Comment on above: Performed By: #### L [id number] ####[facility] ([facility])[address] [place] [address] Hemoglobin (Bld) [Mass/Vol] 8.1 g/dL Low 13.0-17.0 [facility] Comment on above: Performed By: #### L [id number] ####[facility] ([facility])[address] [place] [address] Immature granulocytes (Bld) [#/Vol] 0.03 10*3/uL Normal 0.00-0.20 [facility] Comment on above: Performed By: #### L [id number] ####[facility] ([facility])[address] [place] [address] Immature granulocytes/100 WBC (Bld) 0.5 % Normal 0.0-1.0 [facility] Comment on above: Performed By: #### L [id number] ####[facility] ([facility])[address] [place] [address] Lymphocytes (Bld) [#/Vol] 0.34 10*3/uL Low 1.20-4.00 [facility] Comment on above: Performed By: #### L [id number] ####[facility] ([facility])[address] [place] [address] Lymphocytes/100 WBC (Bld) 5.9 % Low 20.0-45.0 [facility] Comment on above: Performed By: #### L [id number] ####[facility] ([facility])[address] [place] [address] MCH (RBC) [Entitic mass] 26.7 pg Low 27.0-33.0 [facility] Comment on above: Performed By: #### L [id number] ####[facility] ([facility])[address] [place] [address] MCV (RBC) [Entitic vol] 84.5 fL Normal 82.0-98.0 [facility] Comment on above: Performed By: #### L [id number] ####[facility] ([facility])[address] [place] [address] Monocytes (Bld) [#/Vol] 0.74 10*3/uL Normal 0.10-1.00 [facility] Comment on above: Performed By: #### L [id number] ####[facility] ([facility])[address] [place] [address] Monocytes/100 WBC (Bld) 12.8 % High 5.0-12.0 [facility] Comment on above: Performed By: #### L [id number] ####[facility] ([facility])[address] [place] [address] Neutrophils (Bld) [#/Vol] 4.66 10*3/uL Normal 1.60-7.60 [facility] Comment on above: Performed By: #### L [id number] ####[facility] ([facility])[address] [place] [address] Neutrophils/100 WBC (Bld) 80.4 % High 40.0-72.0 [facility] Comment on above: Performed By: #### L [id number] ####[facility] ([facility])[address] [place] [address] NRBC (PER 100 WBCS) BY AUTOMATED COUNT 0.0 % Normal 0 [facility] Comment on above: Performed By: #### L [id number] ####[facility] ([facility])[address] [place] [address] PLATELETS (10*3/UL) IN BLOOD AUTOMATED COUNT 172 10*3/uL Normal 150-400 [facility] Comment on above: Performed By: #### L [id number] ####[facility] ([facility])[address] [place] [address] RBC (Bld) [#/Vol] 3.03 10*6/uL Low 4.20-5.70 [facility] Comment on above: Performed By: #### L [id number] ####[facility] ([facility])[address] [place] [address] WBC (Bld) [#/Vol] 5.79 10*3/uL Normal 4.00-10.60 [facility] Comment on above: Performed By: #### L [id number] ####[facility] ([facility])[address] [place] [address] CONSULTon 11-21-2023 CONSULT Normal [facility] DSon 11-21-2023 DS Normal [facility] HEPATIC FUNCTION PANELon Albumin [Mass/Vol] 2.4 g/dL Low 3.5-5.7 [facility] Comment on above: Performed By: #### L [id number] ####[facility] ([facility])[address] [place] [address] ALP [Catalytic activity/Vol] 215 U/L High 34-104 [facility] Comment on above: Performed By: #### L [id number] ####[facility] ([facility])[address] [place] [address] ALT [Catalytic activity/Vol] 147 U/L High 7-52 [facility] Comment on above: Performed By: #### L [id number] ####[facility] ([facility])[address] [place] [address] AST [Catalytic activity/Vol] 110 U/L High 13-39 [facility] Comment on above: Performed By: #### L [id number] ####[facility] ([facility])[address] [place] [address] Bilirubin [Mass/Vol] 0.8 mg/dL Normal 0.3-1.0 [facility] Comment on above: Performed By: #### L [id number] ####[facility] ([facility])[address] [place] [address] Magnesium [Mass/Vol] 0.6 mg/dL High 0-0.2 [facility] Comment on above: Performed By: #### L [id number] ####[facility] ([facility])[address] [place] [address] Protein [Mass/Vol] 6.3 g/dL Normal 6.0-8.3 [facility] Comment on above: Performed By: #### L [id number] ####[facility] ([facility])[address] [place] [address] POCT GLUCOSE METER UNSOLICIT ED RESULTSon 11-21-2023 Glucose [Mass/Vol] 192 mg/dL High 70-105 [facility] Comment on above: Order Comment: Waive d Testing in the ED is performed under the ED CLIA certificate #[id number]. Result Comment: sbel air Performed By: #### L [id number] ####[facility] ([facility])[address] [place] [address] Glucose [Mass/Vol] 155 mg/dL High 70-105 [facility] Comment on above: Order Comment: Waive d Testing in the ED is performed under the ED CLIA certificate #[id number]. Result Comment: wwar rad Performed By: #### L [id number] ####[facility] ([facility])[address] [place] [address] Glucose [Mass/Vol] 108 mg/dL High 70-105 [facility] Comment on above: Order Comment: Waive d Testing in the ED is performed under the ED CLIA certificate #[id number]. Result Comment: [email or web address] [email or web address] Performed By: #### L [id number] ####[facility] ([facility])[address] [place] [address] Glucose [Mass/Vol] 115 mg/dL High 70-105 [facility] [place] Comment on above: Order Comment: Waive d Testing in the ED is performed under the ED CLIA certificate #[id number]. Result Comment: mcas tor Performed By: #### L [id number] ####[facility] ([facility])[address] [place] [address] PROTIME-INRon 11-21-2023 INR IN PPP BY COAGULATION ASSAY 1.40 High 0.90-1.10 [facility] Comment on above: Result Comment: ACCC [...] CHEST 1995;108:231S-246S. Performed By: #### L [id number] ####[facility] ([facility])[address] [place] [address] PROTHROMBIN TIME (PT) IN PPP BY COAGULATION ASSAY 17.2 Seconds High 12.3-14.8 [facility] Comment on above: Performed By: #### L [id number] ####[facility] ([facility])[address] [place] [address] BASIC METABOLIC PANELon 02- Anion gap [Moles/Vol] 11 mmol/L Normal 7-20 [facility] Comment on above: Performed By: #### L [id number] ####[facility] ([facility])[address] [place] [address] Calcium [Mass/Vol] 7.8 mg/dL Low 8.6-10.3 [facility] Comment on above: Performed By: #### L [id number] ####[facility] ([facility])[address] [place] [address] Chloride [Moles/Vol] 101 mmol/L Normal 98-107 [facility] Comment on above: Performed By: #### L [id number] ####[facility] ([facility])[address] [place] [address] CO2 [Moles/Vol] 24 mmol/L Normal 21-[address] [facility] Comment on above: Performed By: #### L [id number] ####[facility] ([facility])[address] [place] [address] Creatinine [Mass/Vol] 0.43 mg/dL Low 0.70-1.30 [facility] Comment on above: Performed By: #### L [id number] ####[facility] ([facility])[address] [place] [address] GLOMERULAR FILTRATION RATE ML/MIN/1.73 SQ M.PREDICTED 110.6 mL/min/1.73m*2 Normal >60.0 [facility] Comment on above: Result Comment: [facility]???s estimated glomerular filtration rate (eGFR) will [...] of individuals. Performed By: #### L [id number] ####[facility] ([facility])[address] [place] [address] Glucose [Mass/Vol] 104 mg/dL High 70-100 [facility] Comment on above: Performed By: #### L [id number] ####[facility] ([facility])[address] [place] [address] Potassium [Moles/Vol] 3.7 mmol/L Normal 3.5-5.1 [facility] Comment on above: Performed By: #### L [id number] ####[facility] ([facility])[address] [place] [address] Sodium [Moles/Vol] 132 mmol/L Low 136-145 [facility] Comment on above: Performed By: #### L [id number] ####[facility] ([facility])[address] [place] [address] Urea nitrogen [Mass/Vol] 9 mg/dL Normal 7-25 [facility] Comment on above: Performed By: #### L [id number] ####[facility] ([facility])[address] [place] [address] UREA NITROGEN/CREATININE (MASS RATIO) IN SER/PLAS 20.9 Normal [facility] Comment on above: Performed By: #### L [id number] ####[facility] ([facility])[address] [place] [address] CBC WITH AUTO DIFFERENTIALon 11-20-2023 Basophils (Bld) [#/Vol] 0.02 10*3/uL Normal 0.00-0.20 [facility] Comment on above: Performed By: #### L [id number] ####[facility] ([facility])[address] [place] [address] Basophils/100 WBC (Bld) 0.5 % Normal 0.0-1.0 [facility] Comment on above: Performed By: #### L [id number] ####[facility] ([facility])[address] [place] [address] Eosinophils (Bld) [#/Vol] 0.02 10*3/uL Normal 0.00-0.50 [facility] Comment on above: Performed By: #### L [id number] ####[facility] ([facility])[address] [place] [address] Eosinophils/100 WBC (Bld) 0.5 % Normal 0.0-6.0 [facility] Comment on above: Performed By: #### L [id number] ####[facility] ([facility])[address] [place] [address] Erythrocyte distribution width (RBC) [Ratio] 17.1 % High 11.5-15.0 [facility] Comment on above: Performed By: #### L [id number] ####[facility] ([facility])[address] [place] [address] ERYTHROCYTE MEAN CORPUSCULAR HEMOGLOBIN CONCENTRATION (G/DL) BY AUTOMATED 31.6 g/dL Low 32.0-35.0 [facility] Comment on above: Performed By: #### L [id number] ####[facility] ([facility])[address] [place] [address] Hematocrit (Bld) [Volume fraction] 22.8 % Low 39.0-55.0 [facility] Comment on above: Performed By: #### L [id number] ####[facility] ([facility])[address] [place] [address] Hemoglobin (Bld) [Mass/Vol] 7.2 g/dL Low 13.0-17.0 [facility] Comment on above: Performed By: #### L [id number] ####[facility] ([facility])[address] [place] [address] Immature granulocytes (Bld) [#/Vol] 0.05 10*3/uL Normal 0.00-0.20 [facility] Comment on above: Performed By: #### L [id number] ####[facility] ([facility])[address] [place] [address] Immature granulocytes/100 WBC (Bld) 1.2 % High 0.0-1.0 [facility] Comment on above: Performed By: #### L [id number] ####[facility] ([facility])[address] [place] [address] Lymphocytes (Bld) [#/Vol] 0.32 10*3/uL Low 1.20-4.00 [facility] Comment on above: Performed By: #### L [id number] ####[facility] ([facility])[address] [place] [address] Lymphocytes/100 WBC (Bld) 7.4 % Low 20.0-45.0 [facility] Comment on above: Performed By: #### L [id number] ####[facility] ([facility])[address] [place] [address] MCH (RBC) [Entitic mass] 26.6 pg Low 27.0-33.0 [facility] Comment on above: Performed By: #### L [id number] ####[facility] ([facility])[address] [place] [address] MCV (RBC) [Entitic vol] 84.1 fL Normal 82.0-98.0 [facility] Comment on above: Performed By: #### L [id number] ####[facility] ([facility])[address] [place] [address] Monocytes (Bld) [#/Vol] 0.39 10*3/uL Normal 0.10-1.00 [facility] Comment on above: Performed By: #### L [id number] ####[facility] ([facility])[address] [place] [address] Monocytes/100 WBC (Bld) 9.1 % Normal 5.0-12.0 [facility] Comment on above: Performed By: #### L [id number] ####[facility] ([facility])[address] [place] [address] Neutrophils (Bld) [#/Vol] 3.50 10*3/uL Normal 1.60-7.60 [facility] Comment on above: Performed By: #### L [id number] ####[facility] ([facility])[address] [address] Neutrophils/100 WBC (Bld) 81.3 % High 40.0-72.0 [facility] Comment on above: Performed By: #### L [id number] ####[facility] ([facility])[address] [address] NRBC (PER 100 WBCS) BY AUTOMATED COUNT 0.0 % Normal 0 [facility] Comment on above: Performed By: #### L [id number] ####[facility] ([facility])[address] [address] PLATELETS (10*3/UL) IN BLOOD AUTOMATED COUNT 168 10*3/uL Normal 150-400 [facility] Comment on above: Performed By: #### L [id number] ####[facility] ([facility])[address] [place] [address] RBC (Bld) [#/Vol] 2.71 10*6/uL Low 4.20-5.70 [facility] Comment on above: Performed By: #### L [id number] ####[facility] ([facility])[address] [address] WBC (Bld) [#/Vol] 4.30 10*3/uL Normal 4.00-10.60 [facility] Comment on above: Performed By: #### L [id number] ####[facility] ([facility])[address] [place] [address] HEPATIC FUNCTION PANELon Albumin [Mass/Vol] 2.4 g/dL Low 3.5-5.7 [facility] Comment on above: Performed By: #### L [id number] ####[facility] ([facility])[address] [place] [address] ALP [Catalytic activity/Vol] 201 U/L High 34-104 [facility] Comment on above: Performed By: #### L [id number] ####[facility] ([facility])[address] [place] [address] ALT [Catalytic activity/Vol] 160 U/L High 7-52 [facility] Comment on above: Performed By: #### L [id number] ####[facility] ([facility])[address] [place] [address] AST [Catalytic activity/Vol] 107 U/L High 13-39 [facility] Comment on above: Performed By: #### L [id number] ####[facility] ([facility])[address] [place] [address] Bilirubin [Mass/Vol] 0.5 mg/dL Normal 0.3-1.0 [facility] Comment on above: Performed By: #### L [id number] ####[facility] ([facility])[address] [place] [address] Magnesium [Mass/Vol] 0.3 mg/dL High 0-0.2 [facility] Comment on above: Performed By: #### L [id number] ####[facility] ([facility])[address] [place] [address] Protein [Mass/Vol] 6.1 g/dL Normal 6.0-8.3 [facility] Comment on above: Performed By: #### L [id number] ####[facility] ([facility])[address] [place] [address] POCT GLUCOSE METER UNSOLICIT ED RESULTSon 11-20-2023 Glucose [Mass/Vol] 96 mg/dL Normal 70-105 [facility] Comment on above: Order Comment: Waive d Testing in the ED is performed under the ED CLIA certificate #[id number]. Result Comment: [email or web address] Performed By: #### L [id number] ####[facility] ([facility])[address] [place] [address] Glucose [Mass/Vol] 124 mg/dL High 70-105 [facility] Comment on above: Order Comment: Waive d Testing in the ED is performed under the ED CLIA certificate #[id number]. Result Comment: [email or web address] Performed By: #### L [id number] ####[facility] ([facility])[address] [place] [address] TRANSFUSION REACTION EVALUAT IONon 11-20-2023 ABO GROUP (TYPE) IN BLOOD O [facility] Comment on above: Order Comment: Obtai n one Redtop and one Lavender Top. Send with Blood Bag and Infusion set to Blood Bank Performed By: #### L [id number] ####[facility], ANTI C3 LD Negative [facility] Comment on above: Order Comment: Obtai n one Redtop and one Lavender Top. Send with Blood Bag and Infusion set to Blood Bank Performed By: #### L [id number] ####[facility], ANTI IGG LD Negative [facility] Comment on above: Order Comment: Obtai n one Redtop and one Lavender Top. Send with Blood Bag and Infusion set to Blood Bank Performed By: #### L [id number] ####[facility], RH TYPE [facility]LOOD [facility]: Order Comment: Obtai n one Redtop and one Lavender Top. Send with Blood Bag and Infusion set to Blood Bank Performed By: #### L [id number] ####[facility], TRANSFUSION REACTION EVALUATION FEBRILE Normal [facility] Comment on above: Order Comment: Obtai n one Redtop and one Lavender Top. Send with Blood Bag and Infusion set to Blood Bank Performed By: #### L [id number] ####[facility], 30on 11-19-2023 30 Normal [facility] BASIC METABOLIC PANELon 11-10 Anion gap [Moles/Vol] 10 mmol/L Normal 7-20 [facility] Comment on above: Performed By: #### L [id number] ####[facility] ([facility])[address] [place] [address] Calcium [Mass/Vol] 7.8 mg/dL Low 8.6-10.3 [facility] Comment on above: Performed By: #### L [id number] ####[facility] ([facility])[address] [place] [address] Chloride [Moles/Vol] 100 mmol/L Normal 98-107 [facility] Comment on above: Performed By: #### L [id number] ####[facility] ([facility])[address] [place] [address] CO2 [Moles/Vol] 25 mmol/L Normal 21-[address] [facility] Comment on above: Performed By: #### L [id number] ####[facility] ([facility])[address] [place] [address] Creatinine [Mass/Vol] 0.36 mg/dL Low 0.70-1.30 [facility] Comment on above: Performed By: #### L [id number] ####[facility] ([facility])[address] [place] [address] GLOMERULAR FILTRATION RATE ML/MIN/1.73 SQ M.PREDICTED 116.7 mL/min/1.73m*2 Normal >60.0 [facility] Comment on above: Result Comment: [facility]???s estimated glomerular filtration rate (eGFR) will [...] of individuals. Performed By: #### L [id number] ####[facility] ([facility])[address] [place] [address] Glucose [Mass/Vol] 104 mg/dL High 70-100 [facility] Comment on above: Performed By: #### L [id number] ####[facility] ([facility])[address] [place] [address] Potassium [Moles/Vol] 3.7 mmol/L Normal 3.5-5.1 [facility] Comment on above: Performed By: #### L [id number] ####[facility] ([facility])[address] [place] [address] Sodium [Moles/Vol] 131 mmol/L Low 136-145 [facility] Comment on above: Performed By: #### L [id number] ####[facility] ([facility])[address] [place] [address] Urea nitrogen [Mass/Vol] 8 mg/dL Normal 7-25 [facility] Comment on above: Performed By: #### L [id number] ####[facility] ([facility])[address] [place] [address] UREA NITROGEN/CREATININE (MASS RATIO) IN SER/PLAS 22.2 Normal [facility] Comment on above: Performed By: #### L [id number] ####[facility] ([facility])[address] [place] [address] CBC WITH AUTO DIFFERENTIALon 11-19-2023 Basophils (Bld) [#/Vol] 0.03 10*3/uL Normal 0.00-0.20 [facility] Comment on above: Performed By: #### L [id number] ####[facility] ([facility])[address] [place] [address] Basophils/100 WBC (Bld) 0.6 % Normal 0.0-1.0 [facility] Comment on above: Performed By: #### L [id number] ####[facility] ([facility])[address] [place] [address] Eosinophils (Bld) [#/Vol] 0.01 10*3/uL Normal 0.00-0.50 [facility] Comment on above: Performed By: #### L [id number] ####[facility] ([facility])[address] [place] [address] Eosinophils/100 WBC (Bld) 0.2 % Normal 0.0-6.0 [facility] Comment on above: Performed By: #### L [id number] ####[facility] ([facility])[address] [place] [address] Erythrocyte distribution width (RBC) [Ratio] 16.9 % High 11.5-15.0 [facility] Comment on above: Performed By: #### L [id number] ####[facility] ([facility])[address] [place] [address] ERYTHROCYTE MEAN CORPUSCULAR HEMOGLOBIN CONCENTRATION (G/DL) BY AUTOMATED 31.6 g/dL Low 32.0-35.0 [facility] Comment on above: Performed By: #### L [id number] ####[facility] ([facility])[address] [place] [address] Hematocrit (Bld) [Volume fraction] 25.6 % Low 39.0-55.0 [facility] Comment on above: Performed By: #### L [id number] ####[facility] ([facility])[address] [place] [address] Hemoglobin (Bld) [Mass/Vol] 8.1 g/dL Low 13.0-17.0 [facility] Comment on above: Performed By: #### L [id number] ####[facility] ([facility])[address] [place] [address] Immature granulocytes (Bld) [#/Vol] 0.04 10*3/uL Normal 0.00-0.20 [facility] Comment on above: Performed By: #### L [id number] ####[facility] ([facility])[address] [place] [address] Immature granulocytes/100 WBC (Bld) 0.8 % Normal 0.0-1.0 [facility] Comment on above: Performed By: #### L [id number] ####[facility] ([facility])[address] [place] [address] Lymphocytes (Bld) [#/Vol] 0.37 10*3/uL Low 1.20-4.00 [facility] Comment on above: Performed By: #### L [id number] ####[facility] ([facility])[address] [place] [address] Lymphocytes/100 WBC (Bld) 7.2 % Low 20.0-45.0 [facility] Comment on above: Performed By: #### L [id number] ####[facility] ([facility])[address] [place] [address] MCH (RBC) [Entitic mass] 26.1 pg Low 27.0-33.0 [facility] Comment on above: Performed By: #### L [id number] ####[facility] ([facility])[address] [place] [address] MCV (RBC) [Entitic vol] 82.6 fL Normal 82.0-98.0 [facility] Comment on above: Performed By: #### L [id number] ####[facility] ([facility])[address] [place] [address] Monocytes (Bld) [#/Vol] 0.54 10*3/uL Normal 0.10-1.00 [facility] Comment on above: Performed By: #### L [id number] ####[facility] ([facility])[address] [place] [address] Monocytes/100 WBC (Bld) 10.5 % Normal 5.0-12.0 [facility] Comment on above: Performed By: #### L [id number] ####[facility] ([facility])[address] [place] [address] Neutrophils (Bld) [#/Vol] 4.13 10*3/uL Normal 1.60-7.60 [facility] Comment on above: Performed By: #### L [id number] ####[facility] ([facility])[address] [place] [address] Neutrophils/100 WBC (Bld) 80.7 % High 40.0-72.0 [facility] Comment on above: Performed By: #### L [id number] ####[facility] ([facility])[address] [place] [address] NRBC (PER 100 WBCS) BY AUTOMATED COUNT 0.0 % Normal 0 [facility] Comment on above: Performed By: #### L [id number] ####[facility] ([facility])[address] [place] [address] PLATELETS (10*3/UL) IN BLOOD AUTOMATED COUNT 205 10*3/uL Normal 150-400 [facility] Comment on above: Performed By: #### L [id number] ####[facility] ([facility])[address] [place] [address] RBC (Bld) [#/Vol] 3.10 10*6/uL Low 4.20-5.70 [facility] Comment on above: Performed By: #### L [id number] ####[facility] ([facility])[address] [place] [address] WBC (Bld) [#/Vol] 5.12 10*3/uL Normal 4.00-10.60 [facility] Comment on above: Performed By: #### L [id number] ####[facility] ([facility])[address] [place] [address] NURSNOTEon 11-19-2023 NURSNOTE Normal [facility] POCT GLUCOSE METER UNSOLICIT ED RESULTSon 11-19-2023 Glucose [Mass/Vol] 105 mg/dL Normal 70-105 [facility] Comment on above: Order Comment: Waive d Testing in the ED is performed under the ED CLIA certificate #[id number]. Result Comment: mcas tor Performed By: #### L [id number] ####[facility] ([facility])[address] [place] [address] Glucose [Mass/Vol] 157 mg/dL High 70-105 [facility] Comment on above: Order Comment: Waive d Testing in the ED is performed under the ED CLIA certificate #[id number]. Result Comment: [email or web address] Performed By: #### L [id number] ####[facility] ([facility])[address] [place] [address] Glucose [Mass/Vol] 127 mg/dL High 70-105 [facility] Comment on above: Order Comment: Waive d Testing in the ED is performed under the ED CLIA certificate #[id number]. Result Comment: [email or web address] Performed By: #### L [id number] ####[facility] ([facility])[address] [place] [address] Glucose [Mass/Vol] 112 mg/dL High 70-105 [facility] Comment on above: Order Comment: Waive d Testing in the ED is performed under the ED CLIA certificate #[id number]. Result Comment: [email or web address] [id number] Value Noted Performed By: #### L [id number] ####[facility] ([facility])[address] [place] [address] [id number] 11-18-2023 [id number] Normal [facility] 30on 11-18-2023 30 Normal [facility] AFP TUMOR MARKERon 4 ALPHA FETOPROTEIN TUMOR MARKER 2 ng/mL Normal 0-9 [facility] Comment on above: Result Comment: INTE RPRETIVE INFORMATION: Alpha Fetoprotein Tumor MarkerThe [place]it [place] Access DxI AFP method is used. Resultsobtained [...] gender-specific referenceintervals for this test in the [facility] Test Directory(Jalbum).Performed By: [facility] [place] [id number] Director: Dashawn Dumont MD, PhDCLIA Number: [id number] Performed By: #### L [id number] ####[facility] ([facility])[address] [place] [address] [id number] 2023 ALPHA-1 ANTITRYPSIN 333 mg/dL High 90-200 [facility] Comment on above: Result Comment: To c onvert to umol/L, multiply mg/dL by 0.185Performed By: [facility] [place] [id number] Director: Dashawn Dumont MD, PhDCLIA Number: [id number] Performed By: #### L [id number] ####[facility] ([facility])[address] [place] [address] ANAon 11-18-2023 ALLYSSA TITER <1:40 Normal <=1:40 [facility] Comment on above: Result Comment: Test performed using STAR IFA ALLYSSA Hep-2 Test, a pre-standardized assay designed for the qualitative and semi-quantitative detection of antinuclear antibodies. Performed By: #### L [id number] ####[facility] ([facility])[address] [place] [address] ANESon 11-18-2023 ANE Normal [facility] ANES Normal [facility] ANTI-SMOOTH MUSCLE ANTIBODY TITERon 11-18-2023 SMOOTH MUSCLE AB, IGG TITER 1:80 High <1:20 [facility] Comment on above: Result Comment: INTE RPRETIVE INFORMATION: Smooth Muscle Ab, IgG Titer Less than 1:20 ........ Negative - No antibody detected. 1:20 - 1:80 .......... Weak Positive - Suggest repeat in two to three weeks with fresh specimen. 1:160 or greater ...... Positive - Suggestive of autoimmune hepatitis or chronic active hepatitis.Performed By: [facility] [place] [id number] Director: Dashawn Dumont MD, PhDCLIA Number: [id number] Performed By: #### L [id number] ####[facility] ([facility])[address] [place] [address] ANTI-SMOOTH MUSCLE ANTIBODY, IGG WITH REFLEX TO TITERon 11-18-2023 SMOOTH MUSCLE ANTIBODY 20 Units High 0-[address] [facility] Comment on above: Result Comment: REFE [...] IFA ifsuspicion for AIH is strong.Performed By: [facility] [place], [place] [address]Ohxpwrkxst Director: Dashawn Dumont MD, PhDCLIA Number: [id number] Performed By: #### L [id number] ####[facility] ([facility])[address] [place] [address] CBC WITH AUTO DIFFERENTIALon 11-18-2023 Basophils (Bld) [#/Vol] 0.02 10*3/uL Normal 0.00-0.20 [facility] Comment on above: Performed By: #### L [id number] ####[facility] ([facility])[address] [place] [address] Basophils/100 WBC (Bld) 0.2 % Normal 0.0-1.0 [facility] Comment on above: Performed By: #### L [id number] ####[facility] ([facility])[address] [place] [address] Eosinophils (Bld) [#/Vol] 0.01 10*3/uL Normal 0.00-0.50 [facility] Comment on above: Performed By: #### L [id number] ####[facility] ([facility])[address] [place] [address] Eosinophils/100 WBC (Bld) 0.1 % Normal 0.0-6.0 [facility] Comment on above: Performed By: #### L [id number] ####[facility] ([facility])[address] [place] [address] Erythrocyte distribution width (RBC) [Ratio] 16.3 % High 11.5-15.0 [facility] Comment on above: Performed By: #### L [id number] ####[facility] ([facility])[address] [place] [address] ERYTHROCYTE MEAN CORPUSCULAR HEMOGLOBIN CONCENTRATION (G/DL) BY AUTOMATED 32.1 g/dL Normal 32.0-35.0 [facility] Comment on above: Performed By: #### L [id number] ####[facility] ([facility])[address] [place] [address] Hematocrit (Bld) [Volume fraction] 23.7 % Low 39.0-55.0 [facility] Comment on above: Performed By: #### L [id number] ####[facility] ([facility])[address] [place] [address] Hemoglobin (Bld) [Mass/Vol] 7.6 g/dL Low 13.0-17.0 [facility] Comment on above: Performed By: #### L [id number] ####[facility] ([facility])[address] [place] [address] Immature granulocytes (Bld) [#/Vol] 0.05 10*3/uL Normal 0.00-0.20 [facility] Comment on above: Performed By: #### L [id number] ####[facility] ([facility])[address] [place] [address] Immature granulocytes/100 WBC (Bld) 0.6 % Normal 0.0-1.0 [facility] Comment on above: Performed By: #### L [id number] ####[facility] ([facility])[address] [place] [address] Lymphocytes (Bld) [#/Vol] 0.42 10*3/uL Low 1.20-4.00 [facility] Comment on above: Performed By: #### L [id number] ####[facility] ([facility])[address] [place] [address] Lymphocytes/100 WBC (Bld) 4.8 % Low 20.0-45.0 [facility] Comment on above: Performed By: #### L [id number] ####[facility] ([facility])[address] [place] [address] MCH (RBC) [Entitic mass] 26.5 pg Low 27.0-33.0 [facility] Comment on above: Performed By: #### L [id number] ####[facility] ([facility])[address] [place] [address] MCV (RBC) [Entitic vol] 82.6 fL Normal 82.0-98.0 [facility] Comment on above: Performed By: #### L [id number] ####[facility] ([facility])[address] [place] [address] Monocytes (Bld) [#/Vol] 0.82 10*3/uL Normal 0.10-1.00 [facility] Comment on above: Performed By: #### L [id number] ####[facility] ([facility])[address] [place] [address] Monocytes/100 WBC (Bld) 9.3 % Normal 5.0-12.0 [facility] Comment on above: Performed By: #### L [id number] ####[facility] ([facility])[address] [place] [address] Neutrophils (Bld) [#/Vol] 7.52 10*3/uL Normal 1.60-7.60 [facility] Comment on above: Performed By: #### L [id number] ####[facility] ([facility])[address] [place] [address] Neutrophils/100 WBC (Bld) 85.0 % High 40.0-72.0 [facility] Comment on above: Performed By: #### L [id number] ####[facility] ([facility])[address] [place] [address] NRBC (PER 100 WBCS) BY AUTOMATED COUNT 0.0 % Normal 0 [facility] Comment on above: Performed By: #### L [id number] ####[facility] ([facility])[address] [place] [address] PLATELETS (10*3/UL) IN BLOOD AUTOMATED COUNT 192 10*3/uL Normal 150-400 [facility] Comment on above: Performed By: #### L [id number] ####[facility] ([facility])[address] [place] [address] RBC (Bld) [#/Vol] 2.87 10*6/uL Low 4.20-5.70 [facility] Comment on above: Performed By: #### L [id number] ####[facility] ([facility])[address] [place] [address] WBC (Bld) [#/Vol] 8.84 10*3/uL Normal 4.00-10.60 [facility] Comment on above: Performed By: #### L [id number] ####[facility] ([facility])[address] [place] [address] CMV IGMon 11-18-2023 CMV IGM <8.0 Normal <=29.9 [facility] Comment on above: Result Comment: INTE [...] Tissues andCellular and Tissue-Based Products (HCT/P).Performed By: [facility] [employer] [place] [id number] Director: Dashawn Dumont MD, PhDCLIA Number: [id number] Performed By: #### L [id number] ####[facility] ([facility])[address] [place] [address] COMPREHENSIVE METABOLIC PANE Sridhar 11-18-2023 Albumin [Mass/Vol] 2.6 g/dL Low 3.5-5.7 [facility] Comment on above: Performed By: #### L [id number] ####[facility] ([facility])[address] [place] [address] ALP [Catalytic activity/Vol] 252 U/L High 34-104 [facility] Comment on above: Performed By: #### L [id number] ####[facility] ([facility])[address] [place] [address] ALT [Catalytic activity/Vol] 280 U/L High 7-52 [facility] Comment on above: Performed By: #### L [id number] ####[facility] ([facility])[address] [place] [address] Anion gap [Moles/Vol] 8 mmol/L Normal 7-20 [facility] Comment on above: Performed By: #### L [id number] ####[facility] ([facility])[address] [place] [address] AST [Catalytic activity/Vol] 293 U/L High 13-39 [facility] Comment on above: Performed By: #### L [id number] ####[facility] [place] [address] Bilirubin [Mass/Vol] 0.9 mg/dL Normal 0.3-1.0 [facility] Comment on above: Performed By: #### L [id number] ####[facility] ([facility])[address] [place] [address] Calcium [Mass/Vol] 7.8 mg/dL Low 8.6-10.3 [facility] Comment on above: Performed By: #### L [id number] ####[facility] [facility] [place] [address] Chloride [Moles/Vol] 97 mmol/L Low 98-107 [facility] Comment on above: Performed By: #### L [id number] ####[facility] ([facility])[address] [place] [address] CO2 [Moles/Vol] 27 mmol/L Normal 21-[address] [facility] Comment on above: Performed By: #### L [id number] ####[facility] ([facility])[address] [place] [address] Creatinine [Mass/Vol] 0.38 mg/dL Low 0.70-1.30 [facility] Comment on above: Performed By: #### L [id number] ####[facility] ([facility])[address] [place] [address] GLOMERULAR FILTRATION RATE ML/MIN/1.73 SQ M.PREDICTED 114.8 mL/min/1.73m*2 Normal >60.0 [facility] Comment on above: Result Comment: [facility]???s estimated glomerular filtration rate (eGFR) will [...] of individuals. Performed By: #### L [id number] ####[facility] ([facility])[address] [place] [address] Glucose [Mass/Vol] 106 mg/dL High 70-100 [facility] Comment on above: Performed By: #### L [id number] ####[facility] ([facility])[address] [place] [address] Potassium [Moles/Vol] 4.3 mmol/L Normal 3.5-5.1 [facility] Comment on above: Performed By: #### L [id number] ####[facility] ([facility])[address] [place] [address] Protein [Mass/Vol] 6.4 g/dL Normal 6.0-8.3 [facility] Comment on above: Performed By: #### L [id number] ####[facility] ([facility])[address] [place] [address] Sodium [Moles/Vol] 128 mmol/L Low 136-145 [facility] Comment on above: Performed By: #### L [id number] ####[facility] ([facility])[address] [place] [address] Performed By: #### L [id number] ####[facility] ([facility])[address] [place] [address] Urea nitrogen [Mass/Vol] 14 mg/dL Normal 7-25 [facility] Comment on above: Performed By: #### L [id number] ####[facility] ([facility])[address] [place] [address] UREA NITROGEN/CREATININE (MASS RATIO) IN SER/PLAS 36.8 [facility] Comment on above: Performed By: #### L [id number] ####[facility] ([facility])[address] [place] [address] CONSULTon 11-18-2023 CONSULT Normal [facility] CONSULT Normal [facility] DIGOXIN LEVELon 11-18-2023 DIGOXIN (NG/ML) IN SER/PLAS 0.6 ng/mL Low 0.7-2 [facility] Comment on above: Performed By: #### L [id number] ####[facility] ([facility])[address] [place] [address] GIOVANNA-GARG VIRUS VCA, IGMo n 11-18-2023 GIOVANNA-GARG VCA IGM 0.00 Normal <1.10 [facility] Comment on above: Result Comment: NORM AL RANGES:< OR = 0.90 NEGATIVE ; NO SIGNIFICANT LEVEL OF DETECTABLE EBV-VCA IgM AB0.91 - 1.09 EQUIVOCAL; REPEAT TESTING SUGGESTED> OR = 1.10 POSITIVE ; SIGNIFICANT LEVEL OF DETECTABLE EBV-VCA IgM AB Performed By: #### L [id number] ####[facility] ([facility])[address] [place] [address] HEMOGLOBINon 11-18-2023 Hemoglobin (Bld) [Mass/Vol] 7.7 g/dL Low 13.0-17.0 [facility] Comment on above: Performed By: #### L [id number] ####[facility] ([facility])[address] [place] [address] MITOCHONDRIAL ANTIBODIES, M2 on 11-18-2023 MITOCHONDRIAL M2 ANTIBODY 31.0 Units High 0.0-24.9 [facility] Comment on above: Result Comment: REFE [...] negative result doesnot rule out PBC.Performed By: [facility] [place] [id number] Director: Dashawn Dumont MD, PhDCLIA Number: [id number] Performed By: #### L [id number] ####[facility] ([facility])[address] [place] [address] NURSNOTEon 11-18-2023 NURSNOTE Varices banded x [address] [facility] POCT GLUCOSE METER UNSOLICIT ED RESULTSon 11-18-2023 Glucose [Mass/Vol] 107 mg/dL High 70-105 [facility] Comment on above: Order Comment: Waive d Testing in the ED is performed under the ED CLIA certificate #[id number]. Result Comment: [email or web address] [id number] Value Noted Performed By: #### L [id number] ####[facility] ([facility])[address] [place] [address] Glucose [Mass/Vol] 124 mg/dL High 70-105 [facility] Comment on above: Order Comment: Waive d Testing in the ED is performed under the ED CLIA certificate #[id number]. Result Comment: [email or web address] Performed By: #### L [id number] ####[facility] ([facility])[address] [place] [address] Glucose [Mass/Vol] 114 mg/dL High 70-105 [facility] Comment on above: Order Comment: Waive d Testing in the ED is performed under the ED CLIA certificate #[id number]. Result Comment: [email or web address] Performed By: #### L [id number] ####[facility] ([facility])[address] [place] [address] SODIUMon 11-18-2023 Sodium [Moles/Vol] 128 mmol/L Low 136-145 [facility] Comment on above: Performed By: #### L [id number] ####[facility] ([facility])[address] [place] [address] Sodium [Moles/Vol] 129 mmol/L Low 136-145 [facility] Comment on above: Performed By: #### L [id number] ####[facility] ([facility])[address] [place] [address] TISSUE TRANSGLUTAMINASE, IGA on 11-18-2023 TISSUE TRANSGLUTAMINASE, IGA <1.02 Normal 0.00-4.99 [facility] Comment on above: Result Comment: INTE [...] response totherapy. Performed By: #### L [id number] ####[facility] ([facility])[address] [place] [address] ACETAMINOPHEN LEVELon 2023 ACETAMINOPHEN (UG/ML) IN SER/PLAS <10 Low 10-30 [facility] Comment on above: Performed By: #### L [id number] ####[facility] ([facility])[address] [place] [address] APTTon 11-17-2023 ACTIVATED PARTIAL THROMBOPLASTIN TIME IN PPP BY COAGULATION ASSAY 53.6 Seconds High 25.0-35.0 [facility] Comment on above: Result Comment: Clin ical significance of the APTT is questionable in the presence of heparin. Performed By: #### L [id number] ####[facility] ([facility])[address] [place] [address] BASIC METABOLIC PANELon Anion gap [Moles/Vol] 9 mmol/L Normal 7-20 [facility] Comment on above: Performed By: #### L [id number] ####[facility] ([facility])[address] [place] [address] Calcium [Mass/Vol] 8.0 mg/dL Low 8.6-10.3 [facility] Comment on above: Performed By: #### L [id number] ####[facility] ([facility])[address] [place] [address] Chloride [Moles/Vol] 94 mmol/L Low 98-107 [facility] Comment on above: Performed By: #### L [id number] ####[facility] ([facility])[address] [place] [address] CO2 [Moles/Vol] 27 mmol/L Normal 21-[address] [facility] Comment on above: Performed By: #### L [id number] ####[facility] ([facility])[address] [place] [address] Creatinine [Mass/Vol] 0.51 mg/dL Low 0.70-1.30 [facility] Comment on above: Performed By: #### L [id number] ####[facility] ([facility])[address] [place] [address] GLOMERULAR FILTRATION RATE ML/MIN/1.73 SQ M.PREDICTED 105.1 mL/min/1.73m*2 Normal >60.0 [facility] Comment on above: Result Comment: [facility]???s estimated glomerular filtration rate (eGFR) will [...] of individuals. Performed By: #### L [id number] ####[facility] ([facility])[address] [place] [address] Glucose [Mass/Vol] 156 mg/dL High 70-100 [facility] Comment on above: Performed By: #### L [id number] ####[facility] ([facility])[address] [place] [address] Potassium [Moles/Vol] 4.0 mmol/L Normal 3.5-5.1 [facility] Comment on above: Performed By: #### L [id number] ####[facility] ([facility])[address] [place] [address] Sodium [Moles/Vol] 126 mmol/L Low 136-145 [facility] Comment on above: Performed By: #### L [id number] ####[facility] ([facility])[address] [place] [address] Urea nitrogen [Mass/Vol] 18 mg/dL Normal 7-25 [facility] Comment on above: Performed By: #### L [id number] ####[facility] ([facility])[address] [place] [address] UREA NITROGEN/CREATININE (MASS RATIO) IN SER/PLAS 35.3 Normal [facility] Comment on above: Performed By: #### L [id number] ####[facility] ([facility])[address] [place] [address] CBC WITH AUTO DIFFERENTIALon 11-17-2023 Basophils (Bld) [#/Vol] 0.02 10*3/uL Normal 0.00-0.20 [facility] Comment on above: Performed By: #### L [id number] ####[facility] ([facility])[address] [place] [address] Basophils/100 WBC (Bld) 0.2 % Normal 0.0-1.0 [facility] Comment on above: Performed By: #### L [id number] ####[facility] ([facility])[address] [place] [address] Eosinophils (Bld) [#/Vol] 0.03 10*3/uL Normal 0.00-0.50 [facility] Comment on above: Performed By: #### L [id number] ####[facility] ([facility])[address] [place] [address] Eosinophils/100 WBC (Bld) 0.4 % Normal 0.0-6.0 [facility] Comment on above: Performed By: #### L [id number] ####[facility] ([facility])[address] [place] [address] Erythrocyte distribution width (RBC) [Ratio] 16.9 % High 11.5-15.0 [facility] Comment on above: Performed By: #### L [id number] ####[facility] ([facility])[address] [place] [address] ERYTHROCYTE MEAN CORPUSCULAR HEMOGLOBIN CONCENTRATION (G/DL) BY AUTOMATED 31.6 g/dL Low 32.0-35.0 [facility] Comment on above: Performed By: #### L [id number] ####[facility] ([facility])[address] [place] [address] Hematocrit (Bld) [Volume fraction] 21.5 % Low 39.0-55.0 [facility] Comment on above: Performed By: #### L [id number] ####[facility] ([facility])[address] [place] [address] Hemoglobin (Bld) [Mass/Vol] 6.8 g/dL Low 13.0-17.0 [facility] Comment on above: Performed By: #### L [id number] ####[facility] ([facility])[address] [place] [address] Immature granulocytes (Bld) [#/Vol] 0.04 10*3/uL Normal 0.00-0.20 [facility] Comment on above: Performed By: #### L [id number] ####[facility] ([facility])[address] [place] [address] Immature granulocytes/100 WBC (Bld) 0.5 % Normal 0.0-1.0 [facility] Comment on above: Performed By: #### L [id number] ####[facility] ([facility])[address] [place] [address] Lymphocytes (Bld) [#/Vol] 0.43 10*3/uL Low 1.20-4.00 [facility] Comment on above: Performed By: #### L [id number] ####[facility] ([facility])[address] [place] [address] Lymphocytes/100 WBC (Bld) 5.1 % Low 20.0-45.0 [facility] Comment on above: Performed By: #### L [id number] ####[facility] ([facility])[address] [place] [address] MCH (RBC) [Entitic mass] 26.3 pg Low 27.0-33.0 [facility] Comment on above: Performed By: #### L [id number] ####[facility] ([facility])[address] [place] [address] MCV (RBC) [Entitic vol] 83.0 fL Normal 82.0-98.0 [facility] Comment on above: Performed By: #### L [id number] ####[facility] ([facility])[address] [place] [address] Monocytes (Bld) [#/Vol] 0.77 10*3/uL Normal 0.10-1.00 [facility] Comment on above: Performed By: #### L [id number] ####[facility] ([facility])[address] [place] [address] Monocytes/100 WBC (Bld) 9.1 % Normal 5.0-12.0 [facility] Comment on above: Performed By: #### L [id number] ####[facility] ([facility])[address] [place] [address] Neutrophils (Bld) [#/Vol] 7.13 10*3/uL Normal 1.60-7.60 [facility] Comment on above: Performed By: #### L [id number] ####[facility] ([facility])[address] [place] [address] Neutrophils/100 WBC (Bld) 84.7 % High 40.0-72.0 [facility] Comment on above: Performed By: #### L [id number] ####[facility] ([facility])[address] [place] [address] NRBC (PER 100 WBCS) BY AUTOMATED COUNT 0.0 % Normal 0 [facility] Comment on above: Performed By: #### L [id number] ####[facility] ([facility])[address] [place] [address] PLATELETS (10*3/UL) IN BLOOD AUTOMATED COUNT 187 10*3/uL Normal 150-400 [facility] Comment on above: Performed By: #### L [id number] ####[facility] ([facility])[address] [place] [address] RBC (Bld) [#/Vol] 2.59 10*6/uL Low 4.20-5.70 [facility] Comment on above: Performed By: #### L [id number] ####[facility] ([facility])[address] [place] [address] WBC (Bld) [#/Vol] 8.42 10*3/uL Normal 4.00-10.60 [facility] Comment on above: Performed By: #### L [id number] ####[facility] ([facility])[address] [place] [address] CONSULTon 11-17-2023 CONSULT Normal [facility] EDPROVon 11-17-2023 EDPROV Normal [facility] HEPATIC FUNCTION PANELon Albumin [Mass/Vol] 2.7 g/dL Low 3.5-5.7 [facility] Comment on above: Performed By: #### L [id number] ####[facility] ([facility])[address] [place] [address] ALP [Catalytic activity/Vol] 308 U/L High 34-104 [facility] Comment on above: Performed By: #### L [id number] ####[facility] ([facility])[address] [place] [address] ALT [Catalytic activity/Vol] 349 U/L High 7-52 [facility] Comment on above: Performed By: #### L [id number] ####[facility] ([facility])[address] [place] [address] AST [Catalytic activity/Vol] 523 U/L High 13-39 [facility] Comment on above: Performed By: #### L [id number] ####[facility] ([facility])[address] [place] [address] Bilirubin [Mass/Vol] 0.4 mg/dL Normal 0.3-1.0 [facility] Comment on above: Performed By: #### L [id number] ####[facility] ([facility])[address] [place] [address] Magnesium [Mass/Vol] 0.4 mg/dL High 0-0.2 [facility] Comment on above: Performed By: #### L [id number] ####[facility] ([facility])[address] [place] [address] Protein [Mass/Vol] 6.8 g/dL Normal 6.0-8.3 [facility] Comment on above: Performed By: #### L [id number] ####[facility] ([facility])[address] [place] [address] HEPATITIS PANEL, ACUTEon HEPATITIS A VIRUS IGM AB PRESENCE IN SER/PLAS Indeterminate Abnormal Nonreactive [facility] Comment on above: Order Comment: Patie nts with specimens exhibiting indeterminate test results should be retested at approximately one-week intervals. Performed By: #### L [id number] ####[facility] ([facility])[address] [place] [address] HEPATITIS B VIRUS CORE AB (PRESENCE) IN SER/PLAS BY IMM [facility]-Reactive [facility] Comment on above: Order Comment: Patie nts with specimens exhibiting indeterminate test results should be retested at approximately one-week intervals. Performed By: #### L [id number] ####[facility] ([facility])[address] [place] [address] HEPATITIS B VIRUS SURFACE AG PRESENCE IN SERUM Non-Reactive Normal Nonreactive [facility] Comment on above: Order Comment: Patie nts with specimens exhibiting indeterminate test results should be retested at approximately one-week intervals. Performed By: #### L [id number] ####[facility] ([facility])[address] [place] [address] HEPATITIS C VIRUS AB PRESENCE IN SERUM Non-Reactive Normal Nonreactive [facility] Comment on above: Order Comment: Patie nts with specimens exhibiting indeterminate test results should be retested at approximately one-week intervals. Performed By: #### L [id number] ####[facility] ([facility])[address] [place] [address] HPon 11-17-2023 HP Normal [facility] PROTIME-INRon 11-17-2023 INR IN PPP BY COAGULATION ASSAY 1.57 High 0.90-1.10 [facility] Comment on above: Result Comment: ACCC [...] CHEST 1995;[id number]. Performed By: #### L [id number] ####[facility] ([facility])[address] [place] [address] PROTHROMBIN TIME (PT) IN PPP BY COAGULATION ASSAY 18.8 Seconds High 12.3-14.8 [facility] Comment on above: Performed By: #### L [id number] ####[facility] ([facility])[address] [place] [address] TROPONIN Ion 11-17-2023 Troponin I.cardiac [Mass/Vol] 0.02 ng/mL Normal 0.00-0.04 [facility] Comment on above: Performed By: #### L [id number] ####[facility] ([facility])[address] [place] [address] TYPE AND SCREENon 11-17-2023 AB SCREEN Negative Normal [facility] Comment on above: Performed By: #### L [id number] ####[facility], ABO group Nom (Bld) O Normal [facility] Comment on above: Performed By: #### L [id number] ####[facility], RH TYPE IN BLOOD Positive Normal [facility] Comment on above: Performed By: #### L [id number] ####[facility], ANTI-XA (HEPARIN LEVEL)on HEPARIN UNFRACTIONATED (U/ML) IN PPP BY CHROMOGENIC METHOD 0.10 IU/mL Invalid Interpretation Code 0.3-0.7 [facility] Comment on above: Order Comment: Check anti-Xa level every 6 hours while on heparin infusion, or per protocol. Result Comment: Masha roxaban and Apixaban will interfere with the anti Xa assay used to monitor UFH and LMWH. Performed By: #### L [id number] ####[facility] ([facility])[address] [place] [address] HEPARIN UNFRACTIONATED (U/ML) IN PPP BY CHROMOGENIC METHOD <0.10 Invalid Interpretation Code 0.3-0.7 [facility] Comment on above: Order Comment: Check anti-Xa level every 6 hours while on heparin infusion, or per protocol. Result Comment: Gays roxaban and Apixaban will interfere with the anti Xa assay used to monitor UFH and LMWH. Performed By: #### L [id number] ####[facility] ([facility])[address] [place] [address] BASIC METABOLIC PANELon -3 Anion gap [Moles/Vol] 11 mmol/L Normal 7-20 [facility] Comment on above: Performed By: #### L [id number] ####[facility] ([facility])[address] [place] [address] Calcium [Mass/Vol] 7.9 mg/dL Low 8.6-10.3 [facility] Comment on above: Performed By: #### L [id number] ####[facility] ([facility])[address] [place] [address] Chloride [Moles/Vol] 98 mmol/L Normal 98-107 [facility] Comment on above: Performed By: #### L [id number] ####[facility] ([facility])[address] [place] [address] CO2 [Moles/Vol] 26 mmol/L Normal 21-[address] [facility] Comment on above: Performed By: #### L [id number] ####[facility] ([facility])[address] [place] [address] Creatinine [Mass/Vol] 0.31 mg/dL Low 0.70-1.30 [facility] Comment on above: Performed By: #### L [id number] ####[facility] ([facility])[address] [place] [address] GLOMERULAR FILTRATION RATE ML/MIN/1.73 SQ M.PREDICTED 122.1 mL/min/1.73m*2 Normal >60.0 [facility] Comment on above: Result Comment: [facility]???s estimated glomerular filtration rate (eGFR) will [...] of individuals. Performed By: #### L [id number] ####[facility] ([facility])[address] [place] [address] Glucose [Mass/Vol] 120 mg/dL High 70-100 [facility] Comment on above: Performed By: #### L [id number] ####[facility] ([facility])[address] [place] [address] Potassium [Moles/Vol] 3.8 mmol/L Normal 3.5-5.1 [facility] Comment on above: Performed By: #### L [id number] ####[facility] ([facility])[address] [place] [address] Sodium [Moles/Vol] 131 mmol/L Low 136-145 [facility] Comment on above: Performed By: #### L [id number] ####[facility] ([facility])[address] [place] [address] Urea nitrogen [Mass/Vol] 13 mg/dL Normal 7-25 [facility] Comment on above: Performed By: #### L [id number] ####[facility] ([facility])[address] [place] [address] UREA NITROGEN/CREATININE (MASS RATIO) IN SER/PLAS 41.9 Normal [facility] Comment on above: Performed By: #### L [id number] ####[facility] ([facility])[address] [place] [address] CBCon 11-08-2023 Erythrocyte distribution width (RBC) [Ratio] 16.7 % High 11.5-15.0 [facility] Comment on above: Performed By: #### L [id number] ####[facility] ([facility])[address] [place] [address] ERYTHROCYTE MEAN CORPUSCULAR HEMOGLOBIN CONCENTRATION (G/DL) BY AUTOMATED 31.8 g/dL Low 32.0-35.0 [facility] Comment on above: Performed By: #### L [id number] ####[facility] ([facility])[address] [place] [address] Hematocrit (Bld) [Volume fraction] 27.4 % Low 39.0-55.0 [facility] Comment on above: Performed By: #### L [id number] ####[facility] ([facility])[address] [place] [address] Hemoglobin (Bld) [Mass/Vol] 8.7 g/dL Low 13.0-17.0 [facility] Comment on above: Performed By: #### L [id number] ####[facility] ([facility])[address] [place] [address] MCH (RBC) [Entitic mass] 26.2 pg Low 27.0-33.0 [facility] Comment on above: Performed By: #### L [id number] ####[facility] ([facility])[address] [place] [address] MCV (RBC) [Entitic vol] 82.5 fL Normal 82.0-98.0 [facility] Comment on above: Performed By: #### L [id number] ####[facility] ([facility])[address] [place] [address] PLATELETS (10*3/UL) IN BLOOD AUTOMATED COUNT 187 10*3/uL Normal 150-400 [facility] Comment on above: Performed By: #### L [id number] ####[facility] ([facility])[address] [place] [address] RBC (Bld) [#/Vol] 3.32 10*6/uL Low 4.20-5.70 [facility] Comment on above: Performed By: #### L [id number] ####[facility] ([facility])[address] [place] [address] WBC (Bld) [#/Vol] 8.48 10*3/uL Normal 4.00-10.60 [facility] Comment on above: Performed By: #### L [id number] ####[facility] ([facility])[address] [place] [address] DSon 11-08-2023 DS Normal [facility] MAGNESIUMon 11-08-2023 Magnesium [Mass/Vol] 1.6 mg/dL Low 1.9-2.7 [facility] Comment on above: Performed By: #### L [id number] ####[facility] ([facility])[address] [place] [address] NURSNOTEon 11-08-2023 NURSNOTE Erp Technical Lead amilcar marques report to [address] with no answer Normal [facility] PHOSPHORUSon 11-08-2023 Magnesium [Mass/Vol] 2.8 mg/dL Normal 2.5-5.0 [facility] Comment on above: Performed By: #### L [id number] ####[facility] ([facility])[address] [facility] [place] [address] POCT GLUCOSE METER UNSOLICIT ED RESULTSon 11-08-2023 Glucose [Mass/Vol] 144 mg/dL High 70-105 [facility] Comment on above: Order Comment: Waive d Testing in the ED is performed under the ED CLIA certificate #[id number]. Result Comment: elac umsky Performed By: #### L [id number] ####[facility] ([facility])[address] [facility] [place] [address] Glucose [Mass/Vol] 141 mg/dL High 70-105 [facility] Comment on above: Order Comment: Waive d Testing in the ED is performed under the ED CLIA certificate #[id number]. Result Comment: elac umsky Performed By: #### L [id number] ####[facility] ([facility])[address] [place] [address] 30on 11-07-2023 30 Normal [facility] 30 Normal [facility] ANTI-XA (HEPARIN LEVEL)on HEPARIN UNFRACTIONATED (U/ML) IN PPP BY CHROMOGENIC METHOD <0.10 Invalid Interpretation Code 0.3-0.7 [facility] Comment on above: Order Comment: Check anti-Xa level every 6 hours while on heparin infusion, or per protocol. Result Comment: Gays roxaban and Apixaban will interfere with the anti Xa assay used to monitor UFH and LMWH. Performed By: #### L [id number] ####[facility] ([facility])[address] [place] [address] HEPARIN UNFRACTIONATED (U/ML) IN PPP BY CHROMOGENIC METHOD <0.10 Invalid Interpretation Code 0.3-0.7 [facility] Comment on above: Order Comment: Check anti-Xa level every 6 hours while on heparin infusion, or per protocol. Result Comment: Masha roxaban and Apixaban will interfere with the anti Xa assay used to monitor UFH and LMWH. Performed By: #### L [id number] ####[facility] ([facility])[address] [place] [address] APTTon 11-07-2023 ACTIVATED PARTIAL THROMBOPLASTIN TIME IN PPP BY COAGULATION ASSAY 44.6 Seconds High 25.0-35.0 [facility] Comment on above: Order Comment: Basel ine aPTT before initiating heparin infusion. Result Comment: Clin ical significance of the APTT is questionable in the presence of heparin. Performed By: #### L [id number] ####[facility] ([facility])[address] [facility] [address] BASIC METABOLIC PANELon 10-11 Anion gap [Moles/Vol] 16 mmol/L Normal 7-20 [facility] Comment on above: Performed By: #### L [id number] ####[facility] ([facility])[address] [place] [address] Calcium [Mass/Vol] 8.6 mg/dL Normal 8.6-10.3 [facility] Comment on above: Performed By: #### L [id number] ####[facility] ([facility])[address] [place] [address] Chloride [Moles/Vol] 97 mmol/L Low 98-107 [facility] Comment on above: Performed By: #### L [id number] ####[facility] ([facility])[address] [place] [address] CO2 [Moles/Vol] 21 mmol/L Normal 21-[address] [facility] Comment on above: Performed By: #### L [id number] ####[facility] ([facility])[address] [place] [address] Creatinine [Mass/Vol] 0.32 mg/dL Low 0.70-1.30 [facility] Comment on above: Performed By: #### L [id number] ####[facility] ([facility])[address] [place] [address] GLOMERULAR FILTRATION RATE ML/MIN/1.73 SQ M.PREDICTED 121.0 mL/min/1.73m*2 Normal >60.0 [facility] Comment on above: Result Comment: [facility]???s estimated glomerular filtration rate (eGFR) will [...] of individuals. Performed By: #### L [id number] ####[facility] ([facility])[address] [place] [address] Glucose [Mass/Vol] 114 mg/dL High 70-100 [facility] Comment on above: Performed By: #### L [id number] ####[facility] ([facility])[address] [place] [address] Potassium [Moles/Vol] 4.1 mmol/L Normal 3.5-5.1 [facility] Comment on above: Performed By: #### L [id number] ####[facility] ([facility])[address] [place] [address] Sodium [Moles/Vol] 130 mmol/L Low 136-145 [facility] Comment on above: Performed By: #### L [id number] ####[facility] ([facility])[address] [place] [address] Urea nitrogen [Mass/Vol] 5 mg/dL Low 7-25 [facility] Comment on above: Performed By: #### L [id number] ####[facility] ([facility])[address] [place] [address] UREA NITROGEN/CREATININE (MASS RATIO) IN SER/PLAS 15.6 Normal [facility] Comment on above: Performed By: #### L [id number] ####[facility] ([facility])[address] [address] CBCon 11-07-2023 Erythrocyte distribution width (RBC) [Ratio] 16.8 % High 11.5-15.0 [facility] Comment on above: Performed By: #### L [id number] ####[facility] ([facility])[address] [address] ERYTHROCYTE MEAN CORPUSCULAR HEMOGLOBIN CONCENTRATION (G/DL) BY AUTOMATED 32.1 g/dL Normal 32.0-35.0 [facility] Comment on above: Performed By: #### L [id number] ####[facility] ([facility])[address] [place] [address] Hematocrit (Bld) [Volume fraction] 29.3 % Low 39.0-55.0 [facility] Comment on above: Performed By: #### L [id number] ####[facility] ([facility])[address] [place] [address] Hemoglobin (Bld) [Mass/Vol] 9.4 g/dL Low 13.0-17.0 [facility] Comment on above: Performed By: #### L [id number] ####[facility] ([facility])[address] [place] [address] MCH (RBC) [Entitic mass] 26.6 pg Low 27.0-33.0 [facility] Comment on above: Performed By: #### L [id number] ####[facility] ([facility])[address] [place] [address] MCV (RBC) [Entitic vol] 83.0 fL Normal 82.0-98.0 [facility] Comment on above: Performed By: #### L [id number] ####[facility] ([facility])[address] [place] [address] PLATELETS (10*3/UL) IN BLOOD AUTOMATED COUNT 214 10*3/uL Normal 150-400 [facility] Comment on above: Performed By: #### L [id number] ####[facility] ([facility])[address] [place] [address] RBC (Bld) [#/Vol] 3.53 10*6/uL Low 4.20-5.70 [facility] Comment on above: Performed By: #### L [id number] ####[facility] ([facility])[address] [place] [address] WBC (Bld) [#/Vol] 10.83 10*3/uL High 4.00-10.60 [facility] Comment on above: Performed By: #### L [id number] ####[facility] ([facility])[address] [place] [address] PLATELET COUNTon 11-07-2023 PLATELETS (10*3/UL) IN BLOOD AUTOMATED COUNT 208 10*3/uL Normal 150-400 [facility] Comment on above: Performed By: #### L [id number] ####[facility] ([facility])[address] [place] [address] POCT GLUCOSE METER UNSOLICIT ED RESULTSon 11-07-2023 Glucose [Mass/Vol] 143 mg/dL High 70-105 [facility] Comment on above: Order Comment: Waive d Testing in the ED is performed under the ED CLIA certificate #[id number]. Result Comment: manny nugent Performed By: #### L [id number] ####[facility] ([facility])[address] [place] [address] Glucose [Mass/Vol] 131 mg/dL High 70-105 [facility] Comment on above: Order Comment: Waive d Testing in the ED is performed under the ED CLIA certificate #[id number]. Result Comment: elac umsky Performed By: #### L [id number] ####[facility] ([facility])[address] [place] [address] Glucose [Mass/Vol] 177 mg/dL High 70-105 [facility] Comment on above: Order Comment: Waive d Testing in the ED is performed under the ED CLIA certificate #[id number]. Result Comment: elac umsky Performed By: #### L [id number] ####[facility] ([facility])[address] [place] [address] Glucose [Mass/Vol] 133 mg/dL High 70-105 [facility] Comment on above: Order Comment: Waive d Testing in the ED is performed under the ED CLIA certificate #[id number]. Result Comment: elac umsky Performed By: #### L [id number] ####[facility] ([facility])[address] [place] [address] APTTon 11-06-2023 ACTIVATED PARTIAL THROMBOPLASTIN TIME IN PPP BY COAGULATION ASSAY 43.9 Seconds High 25.0-35.0 [facility] Comment on above: Order Comment: Check aPTT every 6 hours while on heparin infusion, or per protocol. Result Comment: Clin ical significance of the APTT is questionable in the presence of heparin. Performed By: #### L [id number] ####[facility] ([facility])[address] [place] [address] CBCon 11-06-2023 Erythrocyte distribution width (RBC) [Ratio] 16.8 % High 11.5-15.0 [facility] Comment on above: Performed By: #### L [id number] ####[facility] ([facility])[address] [place] [address] ERYTHROCYTE MEAN CORPUSCULAR HEMOGLOBIN CONCENTRATION (G/DL) BY AUTOMATED 32.0 g/dL Normal 32.0-35.0 [facility] Comment on above: Performed By: #### L [id number] ####[facility] ([facility])[address] [place] [address] Hematocrit (Bld) [Volume fraction] 27.8 % Low 39.0-55.0 [facility] Comment on above: Performed By: #### L [id number] ####[facility] ([facility])[address] [place] [address] Hemoglobin (Bld) [Mass/Vol] 8.9 g/dL Low 13.0-17.0 [facility] Comment on above: Performed By: #### L [id number] ####[facility] ([facility])[address] [place] [address] MCH (RBC) [Entitic mass] 26.8 pg Low 27.0-33.0 [facility] Comment on above: Performed By: #### L [id number] ####[facility] ([facility])[address] [place] [address] MCV (RBC) [Entitic vol] 83.7 fL Normal 82.0-98.0 [facility] Comment on above: Performed By: #### L [id number] ####[facility] ([facility])[address] [place] [address] PLATELETS (10*3/UL) IN BLOOD AUTOMATED COUNT 175 10*3/uL Normal 150-400 [facility] Comment on above: Performed By: #### L [id number] ####[facility] ([facility])[address] [place] [address] RBC (Bld) [#/Vol] 3.32 10*6/uL Low 4.20-5.70 [facility] Comment on above: Performed By: #### L [id number] ####[facility] ([facility])[address] [place] [address] WBC (Bld) [#/Vol] 8.08 10*3/uL Normal 4.00-10.60 [facility] Comment on above: Performed By: #### L [id number] ####[facility] ([facility])[address] [place] [address] COMPREHENSIVE METABOLIC PANE Sridhar 11-06-2023 Albumin [Mass/Vol] 3.0 g/dL Low 3.5-5.7 [facility] Comment on above: Performed By: #### L [id number] ####[facility] ([facility])[address] [place] [address] ALP [Catalytic activity/Vol] 139 U/L High 34-104 [facility] Comment on above: Performed By: #### L [id number] ####[facility] ([facility])[address] [place] [address] ALT [Catalytic activity/Vol] 80 U/L High 7-52 [facility] Comment on above: Performed By: #### L [id number] ####[facility] ([facility])[address] [place] [address] Anion gap [Moles/Vol] 9 mmol/L Normal 7-20 [facility] Comment on above: Performed By: #### L [id number] ####[facility] ([facility])[address] [place] [address] AST [Catalytic activity/Vol] 71 U/L High 13-39 [facility] Comment on above: Performed By: #### L [id number] ####[facility] ([facility])[address] [place] [address] Bilirubin [Mass/Vol] 0.6 mg/dL Normal 0.3-1.0 [facility] Comment on above: Performed By: #### L [id number] ####[facility] ([facility])[address] [place] [address] Calcium [Mass/Vol] 8.3 mg/dL Low 8.6-10.3 [facility] Comment on above: Performed By: #### L [id number] ####[facility] ([facility])[address] [place] [address] Chloride [Moles/Vol] 97 mmol/L Low 98-107 [facility] Comment on above: Performed By: #### L [id number] ####[facility] ([facility])[address] [place] [address] CO2 [Moles/Vol] 27 mmol/L Normal 21-[address] [facility] Comment on above: Performed By: #### L [id number] ####[facility] ([facility])[address] [place] [address] Creatinine [Mass/Vol] 0.35 mg/dL Low 0.70-1.30 [facility] Comment on above: Performed By: #### L [id number] ####[facility] ([facility])[address] [place] [address] GLOMERULAR FILTRATION RATE ML/MIN/1.73 SQ M.PREDICTED 117.7 mL/min/1.73m*2 Normal >60.0 [facility] Comment on above: Result Comment: [facility]???s estimated glomerular filtration rate (eGFR) will [...] of individuals. Performed By: #### L [id number] ####[facility] ([facility])[address] [place] [address] Glucose [Mass/Vol] 153 mg/dL High 70-100 [facility] Comment on above: Performed By: #### L [id number] ####[facility] ([facility])[address] [place] [address] Potassium [Moles/Vol] 2.8 mmol/L Invalid Interpretation Code 3.5-5.1 [facility] Comment on above: Performed By: #### L [id number] ####[facility] ([facility])[address] [place] [address] Protein [Mass/Vol] 6.1 g/dL Normal 6.0-8.3 [facility] Comment on above: Performed By: #### L [id number] ####[facility] ([facility])[address] [place] [address] Sodium [Moles/Vol] 130 mmol/L Low 136-145 [facility] Comment on above: Performed By: #### L [id number] ####[facility] ([facility])[address] [place] [address] Urea nitrogen [Mass/Vol] 4 mg/dL Low 7-25 [facility] Comment on above: Performed By: #### L [id number] ####[facility] ([facility])[address] [place] [address] UREA NITROGEN/CREATININE (MASS RATIO) IN SER/PLAS 11.4 Normal [facility] Comment on above: Performed By: #### L [id number] ####[facility] ([facility])[address] [place] [address] POCT GLUCOSE METER UNSOLICIT ED RESULTSon 11-06-2023 Glucose [Mass/Vol] 159 mg/dL High 70-105 [facility] Comment on above: Order Comment: Waive d Testing in the ED is performed under the ED CLIA certificate #[id number]. Result Comment: [email or web address] Performed By: #### L [id number] ####[facility] ([facility])[address] [place] [address] Glucose [Mass/Vol] 122 mg/dL High 70-105 [facility] Comment on above: Order Comment: Waive d Testing in the ED is performed under the ED CLIA certificate #[id number]. Result Comment: kshe llh Performed By: #### L [id number] ####[facility] ([facility])[address] [place] [address] Glucose [Mass/Vol] 140 mg/dL High 70-105 [facility] Comment on above: Order Comment: Waive d Testing in the ED is performed under the ED CLIA certificate #[id number]. Result Comment: kshe llh Performed By: #### L [id number] ####[facility] ([facility])[address] [place] [address] Glucose [Mass/Vol] 144 mg/dL High 70-105 [facility] Comment on above: Order Comment: Waive d Testing in the ED is performed under the ED CLIA certificate #[id number]. Result Comment: [email or web address] llh Performed By: #### L [id number] ####[facility] ([facility])[address] [place] [address] 30on 11-05-2023 30 Normal [facility] APTTon 11-05-2023 ACTIVATED PARTIAL THROMBOPLASTIN TIME IN PPP BY COAGULATION ASSAY 45.3 Seconds High 25.0-35.0 [facility] Comment on above: Order Comment: Check aPTT every 6 hours while on heparin infusion, or per protocol. Result Comment: Clin ical significance of the APTT is questionable in the presence of heparin. Performed By: #### L [id number] ####[facility] ([facility])[address] [place] [address] CBCon 11-05-2023 Erythrocyte distribution width (RBC) [Ratio] 16.8 % High 11.5-15.0 [facility] Comment on above: Performed By: #### L [id number] ####[facility] ([facility])[address] [place] [address] ERYTHROCYTE MEAN CORPUSCULAR HEMOGLOBIN CONCENTRATION (G/DL) BY AUTOMATED 32.1 g/dL Normal 32.0-35.0 [facility] Comment on above: Performed By: #### L [id number] ####[facility] ([facility])[address] [place] [address] Hematocrit (Bld) [Volume fraction] 24.3 % Low 39.0-55.0 [facility] Comment on above: Performed By: #### L [id number] ####[facility] ([facility])[address] [place] [address] Hemoglobin (Bld) [Mass/Vol] 7.8 g/dL Low 13.0-17.0 [facility] Comment on above: Performed By: #### L [id number] ####[facility] ([facility])[address] [place] [address] MCH (RBC) [Entitic mass] 27.5 pg Normal 27.0-33.0 [facility] Comment on above: Performed By: #### L [id number] ####[facility] ([facility])[address] [place] [address] MCV (RBC) [Entitic vol] 85.6 fL Normal 82.0-98.0 [facility] Comment on above: Performed By: #### L [id number] ####[facility] ([facility])[address] [place] [address] PLATELETS (10*3/UL) IN BLOOD AUTOMATED COUNT 124 10*3/uL Low 150-400 [facility] Comment on above: Performed By: #### L [id number] ####[facility] ([facility])[address] [place] [address] RBC (Bld) [#/Vol] 2.84 10*6/uL Low 4.20-5.70 [facility] Comment on above: Performed By: #### L [id number] ####[facility] ([facility])[address] [place] [address] WBC (Bld) [#/Vol] 3.24 10*3/uL Low 4.00-10.60 [facility] Comment on above: Performed By: #### L [id number] ####[facility] ([facility])[address] [place] [address] COMPREHENSIVE METABOLIC PANE Sridhar 11-05-2023 Albumin [Mass/Vol] 2.9 g/dL Low 3.5-5.7 [facility] Comment on above: Performed By: #### L [id number] ####[facility] ([facility])[address] [place] [address] ALP [Catalytic activity/Vol] 132 U/L High 34-104 [facility] Comment on above: Performed By: #### L [id number] ####[facility] ([facility])[address] [place] [address] ALT [Catalytic activity/Vol] 88 U/L High 7-52 [facility] Comment on above: Performed By: #### L [id number] ####[facility] ([facility])[address] [place] [address] Anion gap [Moles/Vol] 7 mmol/L Normal 7-20 [facility] Comment on above: Performed By: #### L [id number] ####[facility] ([facility])[address] [place] [address] AST [Catalytic activity/Vol] 61 U/L High 13-39 [facility] Comment on above: Performed By: #### L [id number] ####[facility] ([facility])[address] [place] [address] Bilirubin [Mass/Vol] 0.3 mg/dL Normal 0.3-1.0 [facility] Comment on above: Performed By: #### L [id number] ####[facility] ([facility])[address] [place] [address] Calcium [Mass/Vol] 8.4 mg/dL Low 8.6-10.3 [facility] Comment on above: Performed By: #### L [id number] ####[facility])[address] [place] [address] Chloride [Moles/Vol] 104 mmol/L Normal 98-107 [facility] Comment on above: Performed By: #### L [id number] ####[facility])[address] [place] [address] CO2 [Moles/Vol] 26 mmol/L Normal 21-[address] [facility] Comment on above: Performed By: #### L [id number] ####[facility] ([facility])[address] [place] [address] Creatinine [Mass/Vol] 0.42 mg/dL Low 0.70-1.30 [facility] Comment on above: Performed By: #### L [id number] ####[facility] ([facility])[address] [facility] [address] GLOMERULAR FILTRATION RATE ML/MIN/1.73 SQ M.PREDICTED 111.4 mL/min/1.73m*2 Normal >60.0 [facility] Comment on above: Result Comment: [facility]???s estimated glomerular filtration rate (eGFR) will [...] of individuals. Performed By: #### L [id number] ####[facility] ([facility])[address] [place] [address] Glucose [Mass/Vol] 120 mg/dL High 70-100 [facility] Comment on above: Performed By: #### L [id number] ####[facility] ([facility])[address] [place] [address] Potassium [Moles/Vol] 3.4 mmol/L Low 3.5-5.1 [facility] Comment on above: Performed By: #### L [id number] ####[facility] ([facility])[address] [place] [address] Protein [Mass/Vol] 5.6 g/dL Low 6.0-8.3 [facility] Comment on above: Performed By: #### L [id number] ####[facility] ([facility])[address] [place] [address] Sodium [Moles/Vol] 134 mmol/L Low 136-145 [facility] Comment on above: Performed By: #### L [id number] ####[facility] ([facility])[address] [place] [address] Urea nitrogen [Mass/Vol] 9 mg/dL Normal 7-25 [facility] Comment on above: Performed By: #### L [id number] ####[facility] ([facility])[address] [place] [address] UREA NITROGEN/CREATININE (MASS RATIO) IN SER/PLAS 21.4 [facility] Comment on above: Performed By: #### L [id number] ####[facility] ([facility])[address] [place] [address] CONSULTon 11-05-2023 CONSULT Normal [facility] POCT GLUCOSE METER UNSOLICIT ED RESULTSon 11-05-2023 Glucose [Mass/Vol] 119 mg/dL High 70-105 [facility] Comment on above: Order Comment: Waive d Testing in the ED is performed under the ED CLIA certificate #[id number]. Result Comment: [email or web address] Performed By: #### L [id number] ####[facility] ([facility])[address] [place] [address] Glucose [Mass/Vol] 213 mg/dL High 70-105 [facility] Comment on above: Order Comment: Waive d Testing in the ED is performed under the ED CLIA certificate #[id number]. Result Comment: [email or web address] Performed By: #### L [id number] ####[facility] ([facility])[address] [place] [address] Glucose [Mass/Vol] 163 mg/dL High 70-105 [facility] Comment on above: Order Comment: Waive d Testing in the ED is performed under the ED CLIA certificate #[id number]. Result Comment: [email or web address] Performed By: #### L [id number] ####[facility] ([facility])[address] [place] [address] Glucose [Mass/Vol] 106 mg/dL High 70-105 [facility] Comment on above: Order Comment: Waive d Testing in the ED is performed under the ED CLIA certificate #[id number]. Result Comment: [email or web address] Performed By: #### L [id number] ####[facility] ([facility])[address] [place] [address] VANCOMYCIN, TROUGHon 024 VANCOMYCIN (UG/ML) IN SER/PLAS - TROUGH 11.5 ug/mL Normal 5.0-20.0 [facility] Comment on above: Order Comment: Pleas e draw one hour before vancomycin infusion Performed By: #### L [id number] ####[facility] ([facility])[address] [place] [address] 30on 11-04-2023 30 Normal [facility] 30 [facility] 36on 11-04-2023 36 Yes. Patient can kenia l us after surgery to reschedule an appointment [facility] 36 Pt canceled appt on 11/09/23 due to patient having surgery today. would like to know if he need to reschedule? Normal [facility] ANESon 11-04-2023 ANES Normal [facility] ANES Normal [facility] APTTon 11-04-2023 ACTIVATED PARTIAL THROMBOPLASTIN TIME IN PPP BY COAGULATION ASSAY 80.2 Seconds High 25.0-35.0 [facility] Comment on above: Order Comment: Check aPTT every 6 hours while on heparin infusion, or per protocol. Result Comment: Clin ical significance of the APTT is questionable in the presence of heparin. Performed By: #### L [id number] ####[facility] ([facility])[address] [place] [address] CBCon 11-04-2023 Erythrocyte distribution width (RBC) [Ratio] 16.5 % High 11.5-15.0 [facility] Comment on above: Performed By: #### L [id number] ####[facility] ([facility])[address] [place] [address] ERYTHROCYTE MEAN CORPUSCULAR HEMOGLOBIN CONCENTRATION (G/DL) BY AUTOMATED 31.5 g/dL Low 32.0-35.0 [facility] Comment on above: Performed By: #### L [id number] ####[facility] ([facility])[address] [place] [address] Hematocrit (Bld) [Volume fraction] 24.1 % Low 39.0-55.0 [facility] Comment on above: Performed By: #### L [id number] ####[facility] ([facility])[address] [address] Hemoglobin (Bld) [Mass/Vol] 7.6 g/dL Low 13.0-17.0 [facility] Comment on above: Performed By: #### L [id number] ####[facility] ([facility])[address] [address] MCH (RBC) [Entitic mass] 27.0 pg Normal 27.0-33.0 [facility] Comment on above: Performed By: #### L [id number] ####[facility] ([facility])[address] [place] [address] MCV (RBC) [Entitic vol] 85.5 fL Normal 82.0-98.0 [facility] Comment on above: Performed By: #### L [id number] ####[facility] ([facility])[address] [address] PLATELETS (10*3/UL) IN BLOOD AUTOMATED COUNT 132 10*3/uL Low 150-400 [facility] Comment on above: Performed By: #### L [id number] ####[facility] ([facility])[address] [address] RBC (Bld) [#/Vol] 2.82 10*6/uL Low 4.20-5.70 [facility] Comment on above: Performed By: #### L [id number] ####[facility] ([facility])[address], [place] [address] WBC (Bld) [#/Vol] 4.29 10*3/uL Normal 4.00-10.60 [facility] Comment on above: Performed By: #### L [id number] ####[facility] ([facility])[address] [place] [address] COMPREHENSIVE METABOLIC PANE Sridhar 11-04-2023 Albumin [Mass/Vol] 2.9 g/dL Low 3.5-5.7 [facility] Comment on above: Performed By: #### L [id number] ####[facility] ([facility])[address] [place] [address] ALP [Catalytic activity/Vol] 116 U/L High 34-104 [facility] Comment on above: Performed By: #### L [id number] ####[facility] ([facility])[address] [place] [address] ALT [Catalytic activity/Vol] 92 U/L High 7-52 [facility] Comment on above: Performed By: #### L [id number] ####[facility] ([facility])[address] [place] [address] Anion gap [Moles/Vol] 9 mmol/L Normal 7-20 [facility] Comment on above: Performed By: #### L [id number] ####[facility])[address] [place] [address] AST [Catalytic activity/Vol] 47 U/L High 13-39 [facility] Comment on above: Performed By: #### L [id number] ####[facility])[address] [place] [address] Bilirubin [Mass/Vol] 0.4 mg/dL Normal 0.3-1.0 [facility] Comment on above: Performed By: #### L [id number] ####[facility])[address] [place] [address] Calcium [Mass/Vol] 8.1 mg/dL Low 8.6-10.3 [facility] Comment on above: Performed By: #### L [id number] ####[facility] ([facility])[address] [place] [address] Chloride [Moles/Vol] 100 mmol/L Normal 98-107 [facility] Comment on above: Performed By: #### L [id number] ####[facility] ([facility])[address] [place] [address] CO2 [Moles/Vol] 25 mmol/L Normal 21-[address] [facility] Comment on above: Performed By: #### L [id number] ####[facility] ([facility])[address] [place] [address] Creatinine [Mass/Vol] 0.37 mg/dL Low 0.70-1.30 [facility] Comment on above: Performed By: #### L [id number] ####[facility] ([facility])[address] [place] [address] GLOMERULAR FILTRATION RATE ML/MIN/1.73 SQ M.PREDICTED 115.8 mL/min/1.73m*2 Normal >60.0 [facility] Comment on above: Result Comment: [facility]???s estimated glomerular filtration rate (eGFR) will [...] of individuals. Performed By: #### L [id number] ####[facility] ([facility])[address] [place] [address] Glucose [Mass/Vol] 111 mg/dL High 70-100 [facility] Comment on above: Performed By: #### L [id number] ####[facility] ([facility])[address] [place] [address] Potassium [Moles/Vol] 3.3 mmol/L Low 3.5-5.1 [facility] Comment on above: Performed By: #### L [id number] ####[facility] ([facility])[address] [place] [address] Protein [Mass/Vol] 5.6 g/dL Low 6.0-8.3 [facility] Comment on above: Performed By: #### L [id number] ####[facility] ([facility])[address] [place] [address] Sodium [Moles/Vol] 131 mmol/L Low 136-145 [facility] Comment on above: Performed By: #### L [id number] ####[facility] ([facility])[address] [place] [address] Urea nitrogen [Mass/Vol] 9 mg/dL Normal 7-25 [facility] Comment on above: Performed By: #### L [id number] ####[facility] ([facility])[address] [place] [address] UREA NITROGEN/CREATININE (MASS RATIO) IN SER/PLAS 24.3 Normal [facility] Comment on above: Performed By: #### L [id number] ####[facility] ([facility])[address] [place] [address] HISTOLOGY - TISSUE EXAMon LAB AP CASE REPORT Normal [facility] Comment on above: Order Comment: Pre-o p diagnosis:Limb ischemia [I99.8] Result Comment: Surg ical Pathology Case: [id number] Provider: Anjelica Zapata MD Collected: 11/04/2023 1850Ordering Location: [facility] Main Operating Room Received: 11/07/2023 0632Pathologist: MONICA Alanpecimen: Leg, LEFT LOWER LEG - BELOW KNEE AMPUTATION Performed By: #### L [id number] ####[facility] ([facility])[address] [place] [address] LAB AP CLINICAL INFORMATION Normal [facility] Comment on above: Order Comment: Pre-o p diagnosis:Limb ischemia [I99.8] Result Comment: Post -Op [id number] - Limb ischemia [ICD-10-CM] Performed By: #### L [id number] ####[facility] ([facility])[address] [place] [address] LAB AP GROSS DESCRIPTION A. Leg. Normal [facility] Comment on above: Order Comment: Pre-o [...] as follows:A1: Skin and soft tissue margin, account retention representative sectionA2: Bone marrow, tibial marginA3: Great toe, account retention representative longitudinal section after decalcificationA4: Areas of erythematous erosion, account retention representative sectionsA5: Anterior tibial artery, account retention representative cross sectionsA6: Posterior tibial artery, account retention representative cross sectionsA7: Dorsalis pedis artery, account retention representative cross section Shani Smyth, Student Fellow Performed By: #### L [id number] ####[facility] ([facility])[address] [place] [address] LAB AP MICROSCOPIC DESCRIPTION Microscopic examination performed. 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 - Necrotic bone and soft tissues. - Soft tissue resection margin viable. - Bone marrow margin free of acute inflammation. - Arterial artheromatous plaques with calcification. Performed By: #### L [id number] ####[facility] ([facility])[address] [place] [address] OPNOTEon 11-04-2023 OPNOTE Normal [facility] OSMOLALITY, URINEon 11-04-19 24 OSMOLALITY, URINE 383 mOsm/kg Normal 80-1300 [facility] Comment on above: Result Comment: Test Performed by [employer] [address] [place] [address] - Released 11/04/2023 16:39 Performed By: #### L [id number] ####[facility] [id number] [place] [address] POCT GLUCOSE METER UNSOLICIT ED RESULTSon 11-04-2023 Glucose [Mass/Vol] 117 mg/dL High 70-105 [facility] Comment on above: Order Comment: Waive d Testing in the ED is performed under the ED CLIA certificate #[id number]. Result Comment: [email or web address] Performed By: #### L [id number] ####[facility] ([facility])[address] [place] [address] Glucose [Mass/Vol] 118 mg/dL High 70-105 [facility] Comment on above: Order Comment: Waive d Testing in the ED is performed under the ED CLIA certificate #[id number]. Result Comment: [email or web address] Performed By: #### L [id number] ####[facility] ([facility])[address] [place] [address] Glucose [Mass/Vol] 131 mg/dL High 70-105 [facility] Comment on above: Order Comment: Waive d Testing in the ED is performed under the ED CLIA certificate #[id number]. Result Comment: [email or web address] Performed By: #### L [id number] ####[facility] ([facility])[address] [place] [address] SODIUM, URINE, RANDOMon 10-11 Sodium (U) [Moles/Vol] 86 mmol/L [facility] on above: Performed By: #### L [id number] ####[facility] ([facility])[address] [place] [address] TYPE AND SCREENon 11-04-2023 AB SCREEN Negative Normal [facility] Comment on above: Performed By: #### L [id number] ####[facility] BLOOD BANK, ABO group Nom (Bld) O [facility] Comment on above: Performed By: #### L [id number] ####[facility] BLOOD BANK, RH TYPE IN BLOOD Positive Normal [facility] Comment on above: Performed By: #### L [id number] ####[facility] BLOOD BANK, Telephoneon 11-04-2023 Telephone Normal [facility] 30on 11-03-2023 30 Normal [facility] APTTon 11-03-2023 ACTIVATED PARTIAL THROMBOPLASTIN TIME IN PPP BY COAGULATION ASSAY 72.3 Seconds High 25.0-35.0 [facility] Comment on above: Order Comment: Check aPTT every 6 hours while on heparin infusion, or per protocol. Result Comment: Clin ical significance of the APTT is questionable in the presence of heparin. Performed By: #### L [id number] ####[facility] ([facility])[address] [place] [address] ACTIVATED PARTIAL THROMBOPLASTIN TIME IN PPP BY COAGULATION ASSAY 75.8 Seconds High 25.0-35.0 [facility] Comment on above: Order Comment: Check aPTT every 6 hours while on heparin infusion, or per protocol. Result Comment: Clin ical significance of the APTT is questionable in the presence of heparin. Performed By: #### L [id number] ####[facility] ([facility])[address] [place] [address] ACTIVATED PARTIAL THROMBOPLASTIN TIME IN PPP BY COAGULATION ASSAY 84.3 Seconds High 25.0-35.0 [facility] Comment on above: Order Comment: Check aPTT every 6 hours while on heparin infusion, or per protocol. Result Comment: Clin ical significance of the APTT is questionable in the presence of heparin. Performed By: #### L [id number] ####[facility] ([facility])[address] [place] [address] BASIC METABOLIC PANELon 10-11 Anion gap [Moles/Vol] 8 mmol/L Normal 7-20 [facility] Comment on above: Performed By: #### L [id number] ####[facility] ([facility])[address] [place] [address] Calcium [Mass/Vol] 8.7 mg/dL Normal 8.6-10.3 [facility] Comment on above: Performed By: #### L [id number] ####[facility] ([facility])[address] [place] [address] Chloride [Moles/Vol] 98 mmol/L Normal 98-107 [facility] Comment on above: Performed By: #### L [id number] ####[facility] ([facility])[address] [place] [address] CO2 [Moles/Vol] 27 mmol/L Normal 21-[address] [facility] Comment on above: Performed By: #### L [id number] ####[facility] ([facility])[address] [place] [address] Creatinine [Mass/Vol] 0.41 mg/dL Low 0.70-1.30 [facility] Comment on above: Performed By: #### L [id number] ####[facility] ([facility])[address] [facility] [address] GLOMERULAR FILTRATION RATE ML/MIN/1.73 SQ M.PREDICTED 112.2 mL/min/1.73m*2 Normal >60.0 [facility] Comment on above: Result Comment: [facility]???s estimated glomerular filtration rate (eGFR) will [...] of individuals. Performed By: #### L [id number] ####[facility] ([facility])[address] [place] [address] Glucose [Mass/Vol] 102 mg/dL High 70-100 [facility] Comment on above: Performed By: #### L [id number] ####[facility] ([facility])[address] [place] [address] Potassium [Moles/Vol] 3.3 mmol/L Low 3.5-5.1 [facility] Comment on above: Performed By: #### L [id number] ####[facility] ([facility])[address] [place] [address] Sodium [Moles/Vol] 130 mmol/L Low 136-145 [facility] Comment on above: Performed By: #### L [id number] ####[facility] ([facility])[address] [place] [address] Urea nitrogen [Mass/Vol] 12 mg/dL Normal 7-25 [facility] Comment on above: Performed By: #### L [id number] ####[facility] ([facility])[address] [place] [address] UREA NITROGEN/CREATININE (MASS RATIO) IN SER/PLAS 29.3 Normal [facility] Comment on above: Performed By: #### L [id number] ####[facility] ([facility])[address] [place] [address] CBCon 11-03-2023 Erythrocyte distribution width (RBC) [Ratio] 16.6 % High 11.5-15.0 [facility] Comment on above: Performed By: #### L [id number] ####[facility] ([facility])[address] [place] [address] ERYTHROCYTE MEAN CORPUSCULAR HEMOGLOBIN CONCENTRATION (G/DL) BY AUTOMATED 31.6 g/dL Low 32.0-35.0 [facility] Comment on above: Performed By: #### L [id number] ####[facility] ([facility])[address] [place] [address] Hematocrit (Bld) [Volume fraction] 27.2 % Low 39.0-55.0 [facility] Comment on above: Performed By: #### L [id number] ####[facility] ([facility])[address] [place] [address] Hemoglobin (Bld) [Mass/Vol] 8.6 g/dL Low 13.0-17.0 [facility] Comment on above: Performed By: #### L [id number] ####[facility] ([facility])[address] [place] [address] MCH (RBC) [Entitic mass] 26.5 pg Low 27.0-33.0 [facility] Comment on above: Performed By: #### L [id number] ####[facility] ([facility])[address] [place] [address] MCV (RBC) [Entitic vol] 83.7 fL Normal 82.0-98.0 [facility] Comment on above: Performed By: #### L [id number] ####[facility] ([facility])[address] [place] [address] PLATELETS (10*3/UL) IN BLOOD AUTOMATED COUNT 157 10*3/uL Normal 150-400 [facility] Comment on above: Performed By: #### L [id number] ####[facility] ([facility])[address] [place] [address] RBC (Bld) [#/Vol] 3.25 10*6/uL Low 4.20-5.70 [facility] Comment on above: Performed By: #### L [id number] ####[facility] ([facility])[address] [place] [address] WBC (Bld) [#/Vol] 5.95 10*3/uL Normal 4.00-10.60 [facility] Comment on above: Performed By: #### L [id number] ####[facility] ([facility])[address] [place] [address] CONSULTon 11-03-2023 CONSULT Normal [facility] DIGOXIN LEVELon 11-03-2023 DIGOXIN (NG/ML) IN SER/PLAS 0.5 ng/mL Low 0.7-2 [facility] Comment on above: Performed By: #### L [id number] ####[facility] ([facility])[address] [place] [address] FERRITINon 11-03-2023 FERRITIN (NG/ML) IN SER/PLAS 79.0 ng/mL Normal 24.0-336.0 [facility] Comment on above: Performed By: #### L [id number] ####[facility] ([facility])[address] [place] [address] FOLATEon 11-03-2023 FOLATE (NG/ML) IN SER/PLAS 11.28 ng/mL Normal 6.6-1000 [facility] Comment on above: Performed By: #### L [id number] ####[facility] ([facility])[address] [place] [address] IRON AND TIBCon 11-03-2023 IRON (UG/DL) IN SER/PLAS 12 ug/dL Low 50-212 [facility] Comment on above: Performed By: #### L [id number] ####[facility] ([facility])[address] [place] [address] IRON BINDING CAPACITY (UG/DL) IN SER/PLAS 277 ug/dL Normal 250-450 [facility] Comment on above: Performed By: #### L [id number] ####[facility] ([facility])[address] [place] [address] IRON BINDING CAPACITY.UNSATURATED (UG/DL) IN SER/PLAS 265.0 ug/dL Normal 155.0-355.0 [facility] Comment on above: Performed By: #### L [id number] ####[facility] ([facility])[address] [place] [address] IRON SATURATION (%) IN SER/PLAS 4 % Low 20-50 [facility] Comment on above: Performed By: #### L [id number] ####[facility] ([facility])[address] [place] [address] NURSNOTEon 11-03-2023 NURSNOTE Erp Technical Lead asked night surgery/vascular MD if heparin gtt needs to be held at [address] Rubina PA-C said the heparin drip will be turned off 1 to 2 hours before the procedure due to heparin's short half-life. Normal [facility] NURSNOTE Normal [facility] OSMOLALITYon 11-03-2023 OSMOLALITY MEASURED 281 mOsm/kg Normal 275-295 [facility] Comment on above: Order Comment: Add o n Result Comment: Test Performed by [facility] [place] [address] - Released 11/03/2023 17:29 Performed By: #### L [id number] ####[employer] [id number] [place] [address] POCT GLUCOSE METER UNSOLICIT ED RESULTSon 11-03-2023 Glucose [Mass/Vol] 147 mg/dL High 70-105 [facility] Comment on above: Order Comment: Waive d Testing in the ED is performed under the ED CLIA certificate #[id number]. Result Comment: [email or web address] Performed By: #### L [id number] ####[facility] ([facility])[address] [place] [address] Glucose [Mass/Vol] 201 mg/dL High 70-105 [facility] Comment on above: Order Comment: Waive d Testing in the ED is performed under the ED CLIA certificate #[id number]. Result Comment: [email or web address] Performed By: #### L [id number] ####[facility] ([facility])[address] [place] [address] Glucose [Mass/Vol] 243 mg/dL High 70-105 [facility] Comment on above: Order Comment: Waive d Testing in the ED is performed under the ED CLIA certificate #[id number]. Result Comment: [email or web address] Performed By: #### L [id number] ####[facility] ([facility])[address] [place] [address] Glucose [Mass/Vol] 118 mg/dL High 70-105 [facility] Comment on above: Order Comment: Waive d Testing in the ED is performed under the ED CLIA certificate #[id number]. Result Comment: [email or web address] Performed By: #### L [id number] ####[facility] ([facility])[address] [place] [address] VITAMIN B12on 11-03-2023 Cobalamin (Vitamin B12) [Mass/Vol] 1448 pg/mL High 180-914 [facility] Comment on above: Result Comment: REFE RENCE RANGES:180-914 pg/mL Ydgfdr220-093 pg/mL Indeterminate<145 pg/mL Deficient Performed By: #### L [id number] ####[facility] ([facility])[address] [place] [address] 36on 11-02-2023 36 Spoke with Sonia Dey and Ijeoma. Asking about maintaining the line. Asked for them to flush until his appt. states they are seeing vascular today and they hope he is admitted for an amputation. [facility] 36 Spoke with Beth Dey Caring stated for the pt to maintain his line and flush it until his upcoming appt 11/09 [facility] CBC WITH AUTO DIFFERENTIALon 11-02-2023 Basophils (Bld) [#/Vol] 0.01 10*3/uL Normal 0.00-0.20 [facility] Comment on above: Performed By: #### L [id number] ####[facility] ([facility])[address] [place] [address] Basophils/100 WBC (Bld) 0.1 % Normal 0.0-1.0 [facility] Comment on above: Performed By: #### L [id number] ####[facility] ([facility])[address] [place] [address] Eosinophils (Bld) [#/Vol] 0.01 10*3/uL Normal 0.00-0.50 [facility] Comment on above: Performed By: #### L [id number] ####[facility] ([facility])[address] [place] [address] Eosinophils/100 WBC (Bld) 0.1 % Normal 0.0-6.0 [facility] Comment on above: Performed By: #### L [id number] ####[facility] ([facility])[address] [place] [address] Erythrocyte distribution width (RBC) [Ratio] 16.7 % High 11.5-15.0 [facility] Comment on above: Performed By: #### L [id number] ####[facility] ([facility])[address] [place] [address] ERYTHROCYTE MEAN CORPUSCULAR HEMOGLOBIN CONCENTRATION (G/DL) BY AUTOMATED 32.6 g/dL Normal 32.0-35.0 [facility] Comment on above: Performed By: #### L [id number] ####[facility] ([facility])[address] [place] [address] Hematocrit (Bld) [Volume fraction] 27.3 % Low 39.0-55.0 [facility] Comment on above: Performed By: #### L [id number] ####[facility] ([facility])[address] [place] [address] Hemoglobin (Bld) [Mass/Vol] 8.9 g/dL Low 13.0-17.0 [facility] Comment on above: Performed By: #### L [id number] ####[facility] ([facility])[address] [place] [address] Immature granulocytes (Bld) [#/Vol] 0.04 10*3/uL Normal 0.00-0.20 [facility] Comment on above: Performed By: #### L [id number] ####[facility] ([facility])[address] [place] [address] Immature granulocytes/100 WBC (Bld) 0.6 % Normal 0.0-1.0 [facility] Comment on above: Performed By: #### L [id number] ####[facility] ([facility])[address] [place] [address] Lymphocytes (Bld) [#/Vol] 0.32 10*3/uL Low 1.20-4.00 [facility] Comment on above: Performed By: #### L [id number] ####[facility] ([facility])[address] [place] [address] Lymphocytes/100 WBC (Bld) 4.6 % Low 20.0-45.0 [facility] Comment on above: Performed By: #### L [id number] ####[facility] ([facility])[address] [place] [address] MCH (RBC) [Entitic mass] 27.2 pg Normal 27.0-33.0 [facility] Comment on above: Performed By: #### L [id number] ####[facility] ([facility])[address] [place] [address] MCV (RBC) [Entitic vol] 83.5 fL Normal 82.0-98.0 [facility] Comment on above: Performed By: #### L [id number] ####[facility] ([facility])[address] [place] [address] Monocytes (Bld) [#/Vol] 0.96 10*3/uL Normal 0.10-1.00 [facility] Comment on above: Performed By: #### L [id number] ####[facility] ([facility])[address] [place] [address] Monocytes/100 WBC (Bld) 13.7 % High 5.0-12.0 [facility] Comment on above: Performed By: #### L [id number] ####[facility] ([facility])[address] [place] [address] Neutrophils (Bld) [#/Vol] 5.66 10*3/uL Normal 1.60-7.60 [facility] Comment on above: Performed By: #### L [id number] ####[facility] ([facility])[address] [address] Neutrophils/100 WBC (Bld) 80.9 % High 40.0-72.0 [facility] Comment on above: Performed By: #### L [id number] ####[facility] ([facility])[address] [address] NRBC (PER 100 WBCS) BY AUTOMATED COUNT 0.0 % Normal 0 [facility] Comment on above: Performed By: #### L [id number] ####[facility] ([facility])[address] [address] PLATELETS (10*3/UL) IN BLOOD AUTOMATED COUNT 165 10*3/uL Normal 150-400 [facility] Comment on above: Performed By: #### L [id number] ####[facility] ([facility])[address] MIRANDA [id number] RBC (Bld) [#/Vol] 3.27 10*6/uL Low 4.20-5.70 [facility] Comment on above: Performed By: #### L [id number] ####[facility] ([facility])[address] [place] [address] WBC (Bld) [#/Vol] 7.00 10*3/uL Normal 4.00-10.60 [facility] Comment on above: Performed By: #### L [id number] ####[facility] ([facility])[address] [place] [address] COMPREHENSIVE METABOLIC PANE Sridhar 11-02-2023 Albumin [Mass/Vol] 3.1 g/dL Low 3.5-5.7 [facility] Comment on above: Performed By: #### L [id number] ####[facility] ([facility])[address] [place] [address] ALP [Catalytic activity/Vol] 159 U/L High 34-104 [facility] Comment on above: Performed By: #### L [id number] ####[facility] ([facility])[address] [place] [address] ALT [Catalytic activity/Vol] 157 U/L High 7-52 [facility] Comment on above: Performed By: #### L [id number] ####[facility] ([facility])[address] [place] [address] Anion gap [Moles/Vol] 8 mmol/L Normal 7-20 [facility] Comment on above: Performed By: #### L [id number] ####[facility] ([facility])[address] [place] [address] AST [Catalytic activity/Vol] 102 U/L High 13-39 [facility] Comment on above: Performed By: #### L [id number] ####[facility] ([facility])[address] [place] [address] Bilirubin [Mass/Vol] 0.5 mg/dL Normal 0.3-1.0 [facility] Comment on above: Performed By: #### L [id number] ####[facility] ([facility])[address] [place] [address] Calcium [Mass/Vol] 8.6 mg/dL Normal 8.6-10.3 [facility] Comment on above: Performed By: #### L [id number] ####[facility] ([facility])[address] [place] [address] Chloride [Moles/Vol] 93 mmol/L Low 98-107 [facility] Comment on above: Performed By: #### L [id number] ####[facility] ([facility])[address] [place] [address] CO2 [Moles/Vol] 30 mmol/L Normal 21-[address] [facility] Comment on above: Performed By: #### L [id number] ####[facility] ([facility])[address] [place] [address] Creatinine [Mass/Vol] 0.49 mg/dL Low 0.70-1.30 [facility] Comment on above: Performed By: #### L [id number] ####[facility] ([facility])[address] [place] [address] GLOMERULAR FILTRATION RATE ML/MIN/1.73 SQ M.PREDICTED 106.4 mL/min/1.73m*2 Normal >60.0 [facility] Comment on above: Result Comment: [facility]???s estimated glomerular filtration rate (eGFR) will [...] of individuals. Performed By: #### L [id number] ####[facility] ([facility])[address] [place] [address] Glucose [Mass/Vol] 128 mg/dL High 70-100 [facility] Comment on above: Performed By: #### L [id number] ####[facility] ([facility])[address] [place] [address] Potassium [Moles/Vol] 3.5 mmol/L Normal 3.5-5.1 [facility] Comment on above: Performed By: #### L [id number] ####[facility] ([facility])[address] [place] [address] Protein [Mass/Vol] 6.5 g/dL Normal 6.0-8.3 [facility] Comment on above: Performed By: #### L [id number] ####[facility] ([facility])[address] [place] [address] Sodium [Moles/Vol] 127 mmol/L Low 136-145 [facility] Comment on above: Performed By: #### L [id number] ####[facility] ([facility])[address] [place] [address] Urea nitrogen [Mass/Vol] 11 mg/dL Normal 7-25 [facility] Comment on above: Performed By: #### L [id number] ####[facility] ([facility])[address] [place] [address] UREA NITROGEN/CREATININE (MASS RATIO) IN SER/PLAS 22.4 Normal [facility] Comment on above: Performed By: #### L [id number] ####[facility] ([facility])[address] [place] [address] Follow-Upon 11-02-2023 Follow-Up Normal [facility] HPon 11-02-2023 HP Normal [facility] MAGNESIUMon 11-02-2023 Magnesium [Mass/Vol] 1.9 mg/dL Normal 1.9-2.7 [facility] Comment on above: Performed By: #### L [id number] ####[facility] ([facility])[address] [place] [address] PHOSPHORUSon 11-02-2023 Magnesium [Mass/Vol] 3.2 mg/dL Normal 2.5-5.0 [facility] Comment on above: Performed By: #### L [id number] ####[facility] ([facility])[address] [place] [address] POCT GLUCOSE METER UNSOLICIT ED RESULTSon 11-02-2023 Glucose [Mass/Vol] 112 mg/dL High 70-105 [facility] Comment on above: Order Comment: Waive d Testing in the ED is performed under the ED CLIA certificate #[id number]. Result Comment: fbar aka Performed By: #### L [id number] ####[facility] ([facility])[address] [place] [address] Glucose [Mass/Vol] 159 mg/dL High 70-105 [facility] Comment on above: Order Comment: Waive d Testing in the ED is performed under the ED CLIA certificate #[id number]. Result Comment: [email or web address] Performed By: #### L [id number] ####[facility] ([facility])[address] [place] [address] 36on 11-01-2023 36 LM attempted to call patient no answer so left a message for patient to call us back we could see him today with javier at 1045/11 or tomorrow with chauncey at 130 Normal [facility] Outside Records Officeon Outside Records Office [phone] [id number] FF Normal [facility] Orders Onlyon 10-27-2023 Orders Only Normal [facility] BLOOD UREA NITROGENon 2023 Urea nitrogen [Mass/Vol] 15 mg/dL Normal 5-[address] [facility] Comment on above: Performed By: #### C ROSEMARY, 3094-0, BAIT PAINTER, 4091-3 #### [facility] ([id number]) [address] [place] [address] 78381 CBC AND AUTO DIFFon 10-26-19 24 ABSOLUTE BASOPHIL 0.0 X10E9/L Normal 0.0-0.2 [facility] Comment on above: Performed By: #### C ROSEMARY, 3094-0, BAIT PAINTER, 4091-3 #### [facility] ([id number]) [address] [place] [address] 30571 ABSOLUTE NEUTROPHIL 4.3 X10E9/L Normal 1.5-6.6 [facility] Comment on above: Performed By: #### C BCA, 3094-0, BAIT PAINTER, 4091-3 #### [facility] ([id number]) [address] [place] [address] 49434 Basophils/100 WBC (Bld) 0.4 % Normal [facility] Comment on above: Performed By: #### C BCA, 3094-0, BAIT PAINTER, 4091-3 #### [facility] ([id number]) [address] [place] [address] 70038 Eosinophils (Bld) [#/Vol] 0.0 10*3/uL Normal 0.0-0.[address] [facility] Comment on above: Performed By: #### C ROSEMARY, 3094-0, BAIT PAINTER, 4091-12 #### [facility] ([id number]) [address] [place] [address] 71730 Eosinophils/100 WBC (Bld) 0.6 % Normal [facility] Comment on above: Performed By: #### C ROSEMARY, 309-0, BAIT PAINTER, 4091-12 #### [facility] ([id number]) [address] [place] [address] 11206 Erythrocyte distribution width (RBC) [Ratio] 18.5 % High 11.5-15.[address] [facility] Comment on above: Performed By: #### Sammy RILEY, 3093-0, BAIT PAINTER, 4091-12 #### [facility] ([id number]) [address] [place] [address] 13577 Hematocrit (Bld) [Volume fraction] 28.0 % Low 39-[address] [facility] Comment on above: Performed By: #### Sammy RILEY, 309-0, BAIT PAINTER, 4091-12 #### [facility] ([id number]) [address] [place] [address] 47325 Hemoglobin (Bld) [Mass/Vol] 9.1 g/dL Low 13.0-17.[address] [facility] Comment on above: Performed By: #### Sammy RILEY, 3094-0, BAIT PAINTER, 4091-12 #### [facility] ([id number]) [address] [place] [address] 07355 Lymphocytes (Bld) [#/Vol] 0.3 10*3/uL Low 1.0-3.[address] [facility] Comment on above: Performed By: #### Sammy RILEY, 3094-0, BAIT PAINTER, 4091-12 #### [facility] ([id number]) [address] [place] [address] 92961 Lymphocytes/100 WBC (Bld) 5.4 % Normal [facility] Comment on above: Performed By: #### Sammy RILEY, 3094-0, BAIT PAINTER, 4091-12 #### [facility] ([id number]) [address] [place] [address] 15281 MCH (RBC) [Entitic mass] 27.0 pg Normal 27-[address] [facility] Comment on above: Performed By: #### Sammy RILEY, 3094-0, BAIT PAINTER, 4091-12 #### [facility] ([id number]) [address] [place] [address] 90596 MCHC (RBC) [Mass/Vol] 32.5 g/dL Normal 32-36 [facility] Comment on above: Performed By: #### Sammy RILEY, 3094-0, BAIT PAINTER, 4091-12 #### [facility] ([id number]) [address] [place] [address] 45347 MCV (RBC) [Entitic vol] 83 fL Normal 80-100 [facility] Comment on above: Performed By: #### Sammy RILEY, 3094-0, BAIT PAINTER, 4091-12 #### [facility] ([id number]) [address] [place] [address] 49183 Monocytes (Bld) [#/Vol] 0.7 10*3/uL Normal 0-0.[address] [facility] Comment on above: Performed By: #### Sammy RILEY, 3094-0, BAIT PAINTER, 4091-12 #### [facility] ([id number]) [address] [place] [address] 58871 Monocytes/100 WBC (Bld) 12.6 % Normal P [facility] Comment on above: Performed By: #### Sammy RILEY, 3094-0, BAIT PAINTER, 4091-12 #### [facility] ([id number]) [address] [place] [address] [place] [address] Neutrophils/100 WBC (Bld) 81.0 % Normal [facility] Comment on above: Performed By: #### Sammy RILEY, 3094-0, BAIT PAINTER, 4091-12 #### [facility] ([id number]) [address] [place] [address] 94149 Platelet mean volume (Bld) [Entitic vol] 8.2 fL Normal 7-[address] [facility] Comment on above: Performed By: #### Sammy RILEY, 3094-0, BAIT PAINTER, 4091-12 #### [facility] ([id number]) [address] [place] [address] 74029 Platelets (Bld) [#/Vol] 197 10*3/uL Normal 150-[address] [facility] Comment on above: Performed By: #### Sammy RILEY, 3094-0, BAIT PAINTER, 4091-12 #### [facility] ([id number]) [address] [place] [address] 12029 RBC COUNT 3.37 X10E12/L Low 4.10-5.[address] [facility] Comment on above: Performed By: #### Sammy RILEY, 3094-0, BAIT PAINTER, 4091-12 #### [facility] ([id number]) [address] [place] [address] 66565 WBC (Bld) [#/Vol] 5.3 10*3/uL Normal 4.0-11.0 [facility] Comment on above: Performed By: #### Sammy RILEY, 3094-0, BAIT PAINTER, 4091-12 #### [facility] ([id number]) [address] [place] [address] 55437 CREATININEon 10-26-2023 Creatinine [Mass/Vol] 0.35 mg/dL Low 0.70-1.20 [facility] Comment on above: Result Comment: METH OD TRACEABLE TO IDMS STANDARD Performed By: #### Sammy RILEY, 3094-0, BAIT PAINTER, 4092-3 #### [facility] ([id number]) [address] [place] [address] eGFR (CKD-EPI) NON-RACE DEPENDENT >90 Normal >[address] [facility] Comment on above: Result Comment: Reported eGFR is based on the CKD-EPI 2020 equation that does not use a race coefficient. Performed By: #### C ROSEMARY, 309-0, BAIT PAINTER, 4091-3 #### [facility] ([id number]) [address] [place] [address] 33375 CRP [Mass/Vol]on 10-26-2023 C REACTIVE PROTEIN 4.9 mg/dL High 0.000-0.744 [facility] Comment on above: Performed By: #### C ROSEMARY, 3093-0, BAIT PAINTER, 4091-3 #### [facility] ([id number]) [address] [place] [address] 98709 Follow-Upon 10-26-2023 Follow-Up Normal [facility] Vancomycin trough [Mass/Vol] on 10-26-2023 VANCOMYCIN TROUGH 12.4 ug/mL Normal 5.0-20.0 [facility] Comment on above: Performed By: #### C ROSEMARY, 3093-0, BAIT PAINTER, 4091-3 #### [facility] ([id number]) [address] [place] [address] 17695 36on 10-20-2023 36 Labs in [facility] an d Verna is adding weekly CRP. Normal [facility] BLOOD UREA NITROGENon 2023 Urea nitrogen [Mass/Vol] 10 mg/dL Normal 5-[address] [facility] Comment on above: Performed By: #### C ROSEMARY, 309-0, BAIT PAINTER, 4091-3 #### [facility] ([id number]) [address] [place] [address] 45660 CBC AND AUTO DIFFon 10-19-19 24 ABSOLUTE BASOPHIL 0.0 X10E9/L Normal 0.0-0.2 [facility] Comment on above: Performed By: #### C ROSEMARY, 3093-0, BAIT PAINTER, 4091-12 #### [facility] ([id number]) [address] [place] [address] 98050 ABSOLUTE NEUTROPHIL 3.1 X10E9/L Normal 1.5-6.6 [facility] Comment on above: Performed By: #### Sammy RILEY, 3093-0, BAIT PAINTER, 4091-12 #### [facility] ([id number]) [address] [place] [address] 00374 Basophils/100 WBC (Bld) 0.4 % Normal [facility] Comment on above: Performed By: #### Sammy RILEY, 0, BAIT PAINTER, 4091-12 #### [facility] ([id number]) [address] [place] [address] 42298 Eosinophils (Bld) [#/Vol] 0.0 10*3/uL Normal 0.0-0.[address] [facility] Comment on above: Performed By: #### Sammy RIELY, 0, BAIT PAINTER, 4091-12 #### [facility] ([id number]) [address] [place] [address] 62767 Eosinophils/100 WBC (Bld) 0.8 % Normal [facility] Comment on above: Performed By: #### Sammy RILEY, 0, BAIT PAINTER, 4091-12 #### [facility] ([id number]) [address] [place] [address] 82273 Erythrocyte distribution width (RBC) [Ratio] 17.7 % High 11.5-15.[address] [facility] Comment on above: Performed By: #### Sammy RILEY, 309-0, BAIT PAINTER, 4091-12 #### [facility] ([id number]) [address] [place] [address] 73303 Hematocrit (Bld) [Volume fraction] 27.3 % Low 39-[address] [facility] Comment on above: Performed By: #### Sammy RILEY, 309-0, BAIT PAINTER, 4091-12 #### [facility] ([id number]) [address] [place] [address] 02867 Hemoglobin (Bld) [Mass/Vol] 8.8 g/dL Low 13.0-17.[address] [facility] Comment on above: Performed By: #### Sammy RILEY, 309-0, BAIT PAINTER, 4091-12 #### [facility] ([id number]) [address] [place] [address] 05934 Lymphocytes (Bld) [#/Vol] 0.2 10*3/uL Low 1.0-3.[address] [facility] Comment on above: Performed By: #### Sammy RILEY, 3093-0, BAIT PAINTER, 4091-12 #### [facility] ([id number]) [address] [place] [address] 74728 Lymphocytes/100 WBC (Bld) 6.2 % Normal [facility] Comment on above: Performed By: #### Sammy RILEY, 309-0, BAIT PAINTER, 4091-12 #### [facility] ([id number]) [address] [place] [address] 01100 MCH (RBC) [Entitic mass] 27.1 pg Normal 27-[address] [facility] Comment on above: Performed By: #### Sammy RILEY, 309-0, BAIT PAINTER, 4091-12 #### [facility] ([id number]) [address] [place] [address] 12087 MCHC (RBC) [Mass/Vol] 32.2 g/dL Normal 32-36 [facility] Comment on above: Performed By: #### Sammy RILEY, 3094-0, BAIT PAINTER, 4091-12 #### [facility] ([id number]) [address] [place] [address] 45927 MCV (RBC) [Entitic vol] 84 fL Normal 80-100 [facility] Comment on above: Performed By: #### Sammy RILEY, 3094-0, BAIT PAINTER, 4091-12 #### [facility] ([id number]) [address] [place] [address] 30474 Monocytes (Bld) [#/Vol] 0.5 10*3/uL Normal 0-0.[address] [facility] Comment on above: Performed By: #### Sammy RILEY, 3094-0, BAIT PAINTER, 4091-12 #### [facility] ([id number]) [address] [place] [address] 65427 Monocytes/100 WBC (Bld) 11.9 % Normal [facility] Comment on above: Performed By: #### Sammy RILEY, 3094-0, BAIT PAINTER, 4091-12 #### [facility] ([id number]) [address] [place] [address] 97552 Neutrophils/100 WBC (Bld) 80.7 % Normal [facility] Comment on above: Performed By: #### Sammy RILEY, 309-0, BAIT PAINTER, 4091-12 #### [facility] ([id number]) [address] [place] [address] 20669 Platelet mean volume (Bld) [Entitic vol] 9.2 fL Normal 7-[address] [facility] Comment on above: Performed By: #### Sammy RILEY, 3094-0, BAIT PAINTER, 4091-12 #### [facility] ([id number]) [address] [place] [address] 02935 Platelets (Bld) [#/Vol] 109 10*3/uL Low 150-[address] [facility] Comment on above: Performed By: #### Sammy RILEY, 3094-0, BAIT PAINTER, 4091-12 #### [facility] ([id number]) [address] [place] [address] 14783 RBC COUNT 3.25 X10E12/L Low 4.10-5.[address] [facility] Comment on above: Performed By: #### C ROSEMARY, 3094-0, BAIT PAINTER, 4091-3 #### [facility] ([id number]) [address] [place] [address] 85879 WBC (Bld) [#/Vol] 3.8 10*3/uL Low 4.0-11.0 [facility] Comment on above: Performed By: #### C ROSEMARY, 3094-0, BAIT PAINTER, 4091-3 #### [facility] ([id number]) [address] [place] [address] 80519 CREATININEon 10-19-2023 Creatinine [Mass/Vol] 0.40 mg/dL Low 0.70-1.20 [facility] Comment on above: Result Comment: METH OD TRACEABLE TO IDMS STANDARD Performed By: #### C ROSEMARY, 309-0, BAIT PAINTER, 3 #### [facility] ([id number]) [address] [place] [address] 51519 eGFR (CKD-EPI) NON-RACE DEPENDENT >90 Normal >[address] [facility] Comment on above: Result Comment: Reported eGFR is based on the CKD-EPI 2020 equation that does not use a race coefficient. Performed By: #### C ROSEMARY, 309-0, BAIT PAINTER, 3 #### [facility] ([id number]) [address] [place] [address] 35804 Vancomycin trough [Mass/Vol] on 10-19-2023 VANCOMYCIN TROUGH 12.9 ug/mL Normal 5.0-20.0 [facility] Comment on above: Performed By: #### Sammy RILEY, 3094-0, BAIT PAINTER, 3 #### [facility] ([id number]) [address] [place] [address] 75185 Follow-Upon 10-17-2023 Follow-Up Normal [facility] 36on 10-13-2023 36 Yes, I agree with patient going to ER. He is currently at [facility] in [place]. Thanks!. [facility] 36 Spoke with pt yesterday lab called about a critical lab on Hemoglobin stated to have the pt go to the ER as soon as possible. 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 I called pt and spoke with his Ijeoma and stated pt needs to go to the ER alessandra. His stated they will go to [facility] in [facility] BLOOD UREA NITROGENon 2023 Urea nitrogen [Mass/Vol] 11 mg/dL Normal 5-[address] [facility] Comment on above: Performed By: #### 3 094-0, BAIT PAINTER, 2-3, CBCA #### [facility] ([id number]) [address] [place] [address] 19092 CBC AND AUTO DIFFon 10-12-19 24 ABSOLUTE BASOPHIL 0.0 X10E9/L Normal 0.0-0.2 [facility] Comment on above: Performed By: #### C BCA, 3094-0, BAIT PAINTER, 4091-3 #### [facility] ([id number]) [address] [place] [address] 78454 ABSOLUTE NEUTROPHIL 1.8 X10E9/L Normal 1.5-6.6 [facility] Comment on above: Performed By: #### C BCA, 3094-0, BAIT PAINTER, 4091-3 #### [facility] ([id number]) [address] [place] [address] 52413 Basophils/100 WBC (Bld) 0.6 % Normal P [facility] Comment on above: Performed By: #### C BCA, 3094-0, BAIT PAINTER, 2-3 #### [facility] ([id number]) [address] [place] [address] 77014 Eosinophils (Bld) [#/Vol] 0.0 10*3/uL Normal 0.0-0.[address] [facility] Comment on above: Performed By: #### Sammy RILEY, 309-0, BAIT PAINTER, 4091-12 #### [facility] ([id number]) [address] [place] [address] 26382 Eosinophils/100 WBC (Bld) 0.4 % Normal [facility] Comment on above: Performed By: #### Sammy RILEY, 309-0, BAIT PAINTER, 4091-12 #### [facility] ([id number]) [address] [place] [address] 00332 Erythrocyte distribution width (RBC) [Ratio] 18.0 % High 11.5-15.[address] [facility] Comment on above: Performed By: #### Sammy RILEY, 0, BAIT PAINTER, 4091-12 #### [facility] ([id number]) [address] [place] [address] 63033 Hematocrit (Bld) [Volume fraction] 19.0 % Low 39-[address] [facility] Comment on above: Performed By: #### Sammy RILEY, 3090, BAIT PAINTER, 4091-12 #### [facility] ([id number]) [address] [place] [address] 07829 Hemoglobin (Bld) [Mass/Vol] 6.1 g/dL Critically low 13.0-17.[address] [facility] Comment on above: Performed By: #### Sammy RILEY, 309-0, BAIT PAINTER, 4091-12 #### [facility] ([id number]) [address] [place] [address] 43858 Lymphocytes (Bld) [#/Vol] 0.1 10*3/uL Low 1.0-3.[address] [facility] Comment on above: Performed By: #### Sammy RILEY, 309-0, BAIT PAINTER, 4091-12 #### [facility] ([id number]) [address] [place] [address] 55988 Lymphocytes/100 WBC (Bld) 5.9 % Normal [facility] Comment on above: Performed By: #### Sammy RILEY, 3094-0, BAIT PAINTER, 4091-12 #### [facility] ([id number]) [address] [place] [address] 35245 MCH (RBC) [Entitic mass] 26.8 pg Low 27-[address] [facility] Comment on above: Performed By: #### Sammy RILEY, 3094-0, BAIT PAINTER, 4091-12 #### [facility] ([id number]) [address] [place] [address] 63024 MCHC (RBC) [Mass/Vol] 32.1 g/dL Normal 32-36 [facility] Comment on above: Performed By: #### Sammy RILEY, 309-0, BAIT PAINTER, 4091-12 #### [facility] ([id number]) [address] [place] [address] 30244 MCV (RBC) [Entitic vol] 83 fL Normal 80-100 P [facility] Comment on above: Performed By: #### Sammy RILEY, 3094-0, BAIT PAINTER, 4091-12 #### [facility] ([id number]) [address] [place] [address] 35484 Monocytes (Bld) [#/Vol] 0.4 10*3/uL Normal 0-0.[address] [facility] Comment on above: Performed By: #### Sammy RILEY, 3094-0, BAIT PAINTER, 4091-12 #### [facility] ([id number]) [address] [place] [address] 71401 Monocytes/100 WBC (Bld) 15.7 % Normal P [facility] Comment on above: Performed By: #### Sammy RILEY, 3094-0, BAIT PAINTER, 4091-12 #### [facility] ([id number]) [address] [place] [address] 82631 Neutrophils/100 WBC (Bld) 77.4 % Normal [facility] Comment on above: Performed By: #### Sammy RILEY, 3094-0, BAIT PAINTER, 4091-12 #### [facility] ([id number]) [address] [place] [address] 38711 Platelet mean volume (Bld) [Entitic vol] 9.0 fL Normal 7-[address] [facility] Comment on above: Performed By: #### Sammy RILEY, 3094-0, BAIT PAINTER, 4091-12 #### [facility] ([id number]) [address] [place] [address] 67779 Platelets (Bld) [#/Vol] 94 10*3/uL Low 150-450 P [facility] Comment on above: Performed By: #### Sammy RILEY, 3094-0, BAIT PAINTER, 4091-12 #### [facility] ([id number]) [address] [place] [address] 17953 RBC COUNT 2.29 X10E12/L Low 4.10-5.[address] [facility] [facility] Comment on above: Performed By: #### Sammy RILEY, 3094-0, BAIT PAINTER, 4091-12 #### [facility] ([id number]) [address] [place] [address] 92285 WBC (Bld) [#/Vol] 2.4 10*3/uL Low 4.0-11.0 [facility] Comment on above: Performed By: #### Sammy RILEY, 3094-0, BAIT PAINTER, 4091-12 #### [facility] ([id number]) [address] [place] [address] 49029 Eosinophils/100 WBC (Bld) 0.9 % Normal [facility] Comment on above: Performed By: #### Sammy RILEY, 3094-0, BAIT PAINTER, 4091-12 #### [facility] ([id number]) [address] [place] [address] 33101 Erythrocyte distribution width (RBC) [Ratio] 17.6 % High 11.5-15.[address] [facility] Comment on above: Performed By: #### Sammy RILEY, 3094-0, BAIT PAINTER, 4091-12 #### [facility] ([id number]) [address] [place] [address] 35295 Hematocrit (Bld) [Volume fraction] 19.5 % Low 39-[address] [facility] Comment on above: Performed By: #### Sammy RILEY, 309-0, BAIT PAINTER, 4091-12 #### [facility] ([id number]) [address] [place] [address] 81350 Hemoglobin (Bld) [Mass/Vol] 6.3 g/dL Critically low 13.0-17.[address] [facility] Comment on above: Performed By: #### Sammy RILEY, 309-0, BAIT PAINTER, 4091-12 #### [facility] ([id number]) [address] [place] [address] 03993 Lymphocytes/100 WBC (Bld) 3.8 % Normal [facility] Comment on above: Performed By: #### Sammy RILEY, 309-0, BAIT PAINTER, 4091-12 #### [facility] ([id number]) [address] [place] [address] 67382 MCH (RBC) [Entitic mass] 26.6 pg Low 27-[address] [facility] Comment on above: Performed By: #### Sammy RILEY, 3094-0, BAIT PAINTER, 4091-12 #### [facility] ([id number]) [address] [place] [address] 00195 Monocytes (Bld) [#/Vol] 0.2 10*3/uL Normal 0-0.[address] [facility] Comment on above: Performed By: #### Sammy RILEY, 3094-0, BAIT PAINTER, 4091-12 #### [facility] ([id number]) [address] [place] [address] 25120 Monocytes/100 WBC (Bld) 10.4 % Normal [facility] Comment on above: Performed By: #### Sammy RILEY, 3094-0, BAIT PAINTER, 4091- #### [facility] ([id number]) [address] [place] [address] 83503 Neutrophils (Bld) [#/Vol] 1.7 10*3/uL Normal 1.5-6.[address] [facility] Comment on above: Performed By: #### Sammy RILEY, 3094-0, BAIT PAINTER, 4091-12 #### [facility] ([id number]) [address] [place] [address] 27263 OVALOCYTE 2+ Abnormal NONE [facility] Comment on above: Performed By: #### Sammy RILEY, 309-0, BAIT PAINTER, 4091-12 #### [facility] ([id number]) [address] [place] [address] 27984 Platelet mean volume (Bld) [Entitic vol] 8.8 fL Normal 7-[address] [facility] Comment on above: Performed By: #### Sammy RILEY, 3094-0, BAIT PAINTER, 4091-12 #### [facility] ([id number]) [address] [place] [address] 41121 Platelets (Bld) [#/Vol] 87 10*3/uL Low 150-450 [facility] Comment on above: Performed By: #### Sammy RILEY, 3094-0, BAIT PAINTER, 4091- #### [facility] ([id number]) [address] [place] [address] 76013 RBC COUNT 2.35 X10E12/L Low 4.10-5.[address] [facility] Comment on above: Performed By: #### Sammy RILEY, 3094-0, BAIT PAINTER, 4091- #### [facility] ([id number]) [address] [place] [address] 32250 SEG NEUTROPHIL 84.9 % Normal [facility] Comment on above: Performed By: #### C BCA, 3094-0, BAIT PAINTER, 4091-12 #### [facility] ([id number]) [address] [place] [address] 48075 TEARDROP 1+ Abnormal NONE [facility] Comment on above: Performed By: #### C BCA, 3094-0, BAIT PAINTER, 4091- #### [facility] ([id number]) [address] [place] [address] 86608 WBC (Bld) [#/Vol] 2.0 10*3/uL Low 4.0-11.0 [facility] Comment on above: Performed By: #### C BCA, 3094-0, BAIT PAINTER, 4091-12 #### [facility] ([id number]) [address] [place] [address] 30257 COMPREHENSIVE METABOLIC PANE Sridhar 10-12-2023 Albumin [Mass/Vol] 2.6 g/dL Low 3.2-5.3 [facility] Comment on above: Performed By: #### C BCA, 3094-0, BAIT PAINTER, 4091-12 #### [facility] ([id number]) [address] [place] [address] 38757 ALP [Catalytic activity/Vol] 88 U/L Normal 39-[address] [facility] Comment on above: Performed By: #### C BCA, 3094-0, BAIT PAINTER, 4091-12 #### [facility] ([id number]) [address] [place] [address] 90644 ALT [Catalytic activity/Vol] 45 U/L High 0-[address] [facility] Comment on above: Performed By: #### C BCA, 3094-0, BAIT PAINTER, 4091-12 #### [facility] ([id number]) [address] [place] [address] Anion gap [Moles/Vol] 6 mmol/L Normal 5-15 [facility] Comment on above: Performed By: #### C BCA, 3094-0, BAIT PAINTER, 4091-12 #### [facility] ([id number]) [address] [place] [address] 46880 AST [Catalytic activity/Vol] 54 U/L High 0-[address] [facility] Comment on above: Performed By: #### C BCA, 3094-0, BAIT PAINTER, 4091-12 #### [facility] ([id number]) [address] [place] [address] 88181 Bilirubin [Mass/Vol] 0.5 mg/dL Normal 0.3-1.2 [facility] Comment on above: Performed By: #### Sammy BCA, 3094-0, BAIT PAINTER, 4091-12 #### [facility] ([id number]) [address] [place] [address] 20654 Calcium [Mass/Vol] 7.7 mg/dL Low 8.5-10.5 [facility] Comment on above: Performed By: #### Sammy BCA, 3094-0, BAIT PAINTER, 4091-12 #### [facility] ([id number]) [address] [place] [address] 76396 Chloride [Moles/Vol] 100 mmol/L Normal 98-109 [facility] Comment on above: Performed By: #### C BCA, 3094-0, BAIT PAINTER, 4091-12 #### [facility] ([id number]) [address] [place] [address] 91097 CO2 [Moles/Vol] 25 mmol/L Normal 22-[address] [facility] Comment on above: Performed By: #### C BCA, 3094-0, BAIT PAINTER, 4091- #### [facility] ([id number]) [address] [place] [address] 01301 Creatinine [Mass/Vol] 0.39 mg/dL Low 0.70-1.20 [facility] Comment on above: Result Comment: METH OD TRACEABLE TO IDMS STANDARD Performed By: #### C BCA, 3094-0, BAIT PAINTER, 4091-3 #### [facility] ([id number]) [address] [place] [address] 35318 eGFR (CKD-EPI) NON-RACE DEPENDENT >90 Normal >[address] [facility] Comment on above: Result Comment: Reported eGFR is based on the CKD-EPI 2020 equation that does not use a race coefficient. Performed By: #### C BCA, 3094-0, BAIT PAINTER, 4091- #### [facility] ([id number]) [address] [place] [address] 27885 Performed By: #### 3 094-0, BAIT PAINTER, 4091-3, CBCA #### [facility] ([id number]) [address] [place] [address] 58754 Glucose [Mass/Vol] 142 mg/dL High 65-99 [facility] Comment on above: Performed By: #### C BCA, 3094-0, BAIT PAINTER, 4091-12 #### [facility] ([id number]) [address] [place] [address] 86992 Potassium [Moles/Vol] 3.5 mmol/L Normal 3.5-5.0 [facility] Comment on above: Performed By: #### C BCA, 3094-0, BAIT PAINTER, 4091- #### [facility] ([id number]) [address] [place] [address] 79688 Protein [Mass/Vol] 6.1 g/dL Normal 6.0-8.0 [facility] Comment on above: Performed By: #### C BCA, 3094-0, BAIT PAINTER, 4091-3 #### [facility] ([id number]) [address] [place] [address] 16346 Sodium [Moles/Vol] 131 mmol/L Low 134-146 [facility] Comment on above: Performed By: #### C ROSEMARY, 3093-0, BAIT PAINTER, 3 #### [facility] ([id number]) [address] [place] [address] 77788 Urea nitrogen [Mass/Vol] 12 mg/dL Normal 5-[address] [facility] Comment on above: Performed By: #### C ROSEMARY, 3093-0, BAIT PAINTER, 4091-12 #### [facility] ([id number]) [address] [place] [address] 71770 CREATININEon 10-12-2023 Creatinine [Mass/Vol] 0.47 mg/dL Low 0.70-1.20 [facility] Comment on above: Result Comment: METH OD TRACEABLE TO IDMS STANDARD Performed By: #### 3 094-0, BAIT PAINTER, 4091-12, CBCA #### [facility] ([id number]) [address] [place] [address] 35410 HEMOGLOBINon 10-12-2023 Hemoglobin (Bld) [Mass/Vol] 8.9 g/dL Low 13.0-17.[address] [facility] Comment on above: Performed By: #### C ROSEMARY, 3093-0, BAIT PAINTER, 4091-12 #### [facility] ([id number]) [address] [place] [address] 57440 Hematocrit Auto (Bld) [Volum e fraction]on 10-12-2023 Hematocrit (Bld) [Volume fraction] 27.0 % Low 39-[address] [facility] Comment on above: Performed By: #### C ROSEMARY, 309-0, BAIT PAINTER, 4091-12 #### [facility] ([id number]) [address] [place] [address] 81070 Vancomycin trough [Mass/Vol] on 10-12-2023 VANCOMYCIN TROUGH 11.1 ug/mL Normal 5.0-20.0 [facility] Comment on above: Performed By: #### C BCA, 3094-0, BAIT PAINTER, 4092-3 #### [facility] ([id number]) [address] [place] [address] 21147 BLOOD UREA NITROGENon 2022 Urea nitrogen [Mass/Vol] 11 mg/dL Normal -[address] [facility] Comment on above: Performed By: #### 3 094-0, BAIT PAINTER, 4091-3, CBCA #### [facility] ([id number]) [address] [place] [address] 85967 CBC AND AUTO DIFFon 10-05-20 ABSOLUTE BASOPHIL 0.0 X10E9/L Normal 0.0-0.2 [facility] Comment on above: Performed By: #### 3 094-0, BAIT PAINTER, 4091-3, CBCA #### [facility] ([id number]) [address] [place] [address] 63676 ABSOLUTE NEUTROPHIL 1.5 X10E9/L Normal 1.5-6.6 [facility] Comment on above: Performed By: #### 3 094-0, BAIT PAINTER, 3, CBCA #### [facility] ([id number]) [address] [place] [address] 72063 Basophils/100 WBC (Bld) 1.5 % Normal [facility] Comment on above: Performed By: #### 3 094-0, BAIT PAINTER, 4091-3, CBCA #### [facility] ([id number]) [address] [place] [address] 68315 Eosinophils (Bld) [#/Vol] 0.0 10*3/uL Normal 0.0-0.[address] [facility] Comment on above: Performed By: #### 3 094-0, BAIT PAINTER, 4091-3, CBCA #### [facility] ([id number]) [address] [place] [address] 94446 Eosinophils/100 WBC (Bld) 1.7 % Normal [facility] Comment on above: Performed By: #### 3 094-0, BAIT PAINTER, 4091-12, CBCA #### [facility] ([id number]) [address] [place] [address] 69603 Erythrocyte distribution width (RBC) [Ratio] 18.5 % High 11.5-15.[address] [facility] Comment on above: Performed By: #### 3 094-0, BAIT PAINTER, 4091-12, CBCA #### [facility] ([id number]) [address] [place] [address] 92556 Hematocrit (Bld) [Volume fraction] 20.9 % Low 39-[address] [facility] Comment on above: Performed By: #### 3 094-0, BAIT PAINTER, 4091-12, CBCA #### [facility] ([id number]) [address] [place] [address] 20199 Hemoglobin (Bld) [Mass/Vol] 6.7 g/dL Critically low 13.0-17.[address] [facility] Comment on above: Performed By: #### 3 094-0, BAIT PAINTER, 4091-12, CBCA #### [facility] ([id number]) [address] [place] [address] 37466 Lymphocytes (Bld) [#/Vol] 0.2 10*3/uL Low 1.0-3.[address] [facility] Comment on above: Performed By: #### 3 094-0, BAIT PAINTER, 4091-12, CBCA #### [facility] ([id number]) [address] [place] [address] 37980 Lymphocytes/100 WBC (Bld) 9.7 % Normal [facility] Comment on above: Performed By: #### 3 094-0, BAIT PAINTER, 4091-12, CBCA #### [facility] ([id number]) [address] [place] [address] 13170 MCH (RBC) [Entitic mass] 27.6 pg Normal 27-[address] [facility] Comment on above: Performed By: #### 3 094-0, BAIT PAINTER, 4091-3, CBCA #### [facility] ([id number]) [address] [place] [address] 09592 MCHC (RBC) [Mass/Vol] 32.2 g/dL Normal 32-36 [facility] Comment on above: Performed By: #### 3 094-0, BAIT PAINTER, 4091-3, CBCA #### [facility] ([id number]) [address] [place] [address] 68707 MCV (RBC) [Entitic vol] 86 fL Normal 80-100 [facility] Comment on above: Performed By: #### 3 094-0, BAIT PAINTER, 4091-12, CBCA #### [facility] ([id number]) [address] [place] [address] 37105 Monocytes (Bld) [#/Vol] 0.3 10*3/uL Normal 0-0.[address] [facility] Comment on above: Performed By: #### 3 094-0, BAIT PAINTER, 4091-12, CBCA #### [facility] ([id number]) [address] [place] [address] 56934 Monocytes/100 WBC (Bld) 16.0 % Normal [facility] Comment on above: Performed By: #### 3 094-0, BAIT PAINTER, 4091-, CBCA #### [facility] ([id number]) [address] [place] [address] 43492 Neutrophils/100 WBC (Bld) 71.1 % Normal [facility] Comment on above: Performed By: #### 3 094-0, BAIT PAINTER, 4091-3, CBCA #### [facility] ([id number]) [address] [place] [address] 47925 Platelet mean volume (Bld) [Entitic vol] 9.4 fL Normal 7-[address] [facility] Comment on above: Performed By: #### 3 094-0, BAIT PAINTER, 4091-3, CBCA #### [facility] ([id number]) [address] [place] [address] 60254 Platelets (Bld) [#/Vol] 101 10*3/uL Low 150-[address] [facility] Comment on above: Performed By: #### 3 094-0, BAIT PAINTER, 4091-3, CBCA #### [facility] ([id number]) [address] [place] [address] 92437 RBC COUNT 2.43 X10E12/L Low 4.10-5.[address] [facility] Comment on above: Performed By: #### 3 094-0, BAIT PAINTER, 4091-12, CBCA #### [facility] ([id number]) [address] [place] [address] 03794 WBC (Bld) [#/Vol] 2.1 10*3/uL Low 4.0-11.0 [facility] Comment on above: Performed By: #### 3 094-0, BAIT PAINTER, 4091-12, CBCA #### [facility] ([id number]) [address] [place] [address] 50034 CREATININEon 10-05-2023 Creatinine [Mass/Vol] 0.42 mg/dL Low 0.70-1.20 [facility] Comment on above: Result Comment: METH OD TRACEABLE TO IDMS STANDARD Performed By: #### 3 094-0, BAIT PAINTER, 4091-12, CBCA #### [facility] ([id number]) [address] [place] [address] 58373 eGFR (CKD-EPI) NON-RACE DEPENDENT >90 Normal >[address] [facility] Comment on above: Result Comment: Reported eGFR is based on the CKD-EPI 2020 equation that does not use a race coefficient. Performed By: #### 3 094-0, BAIT PAINTER, 4091-3, CBCA #### [facility] ([id number]) [address] [place] [address] 85351 Follow-Upon 10-05-2023 Follow-Up Normal [facility] Telephoneon 10-05-2023 Telephone Normal [facility] Vancomycin trough [Mass/Vol] on 10-05-2023 VANCOMYCIN TROUGH 14.7 ug/mL Normal 5.0-20.0 [facility] Comment on above: Performed By: #### 3 094-0, BAIT PAINTER, 4091-3, CBCA #### [facility] ([id number]) [address] [place] [address] 87095 36on 09-30-2023 36 No Opat received. Clare crawford faxed to us showing stable results. Normal [facility] BLOOD UREA NITROGENon 2022 Urea nitrogen [Mass/Vol] 12 mg/dL Normal 03-[address] [facility] Comment on above: Performed By: #### C BCA, 3094-0, BAIT PAINTER, 4091-12 #### [facility] ([id number]) [address] [place] [address] 92821 CBC AND AUTO DIFFon 09-28-20 ABSOLUTE BASOPHIL 0.0 X10E9/L Normal 0.0-0.2 [facility] Comment on above: Performed By: #### C BCA, 3094-0, BAIT PAINTER, 4091-3 #### [facility] ([id number]) [address] [place] [address] 72594 ABSOLUTE NEUTROPHIL 4.7 X10E9/L Normal 1.5-6.6 [facility] Comment on above: Performed By: #### C BCA, 3094-0, BAIT PAINTER, 4091-3 #### [facility] ([id number]) [address] [place] [address] 92796 Basophils/100 WBC (Bld) 0.6 % Normal [facility] Comment on above: Performed By: #### Sammy RILEY, 3094-0, BAIT PAINTER, 4091-12 #### [facility] ([id number]) [address] [place] [address] 49440 Eosinophils (Bld) [#/Vol] 0.0 10*3/uL Normal 0.0-0.[address] [facility] Comment on above: Performed By: #### Sammy RILEY, 3094-0, BAIT PAINTER, 4091-12 #### [facility] ([id number]) [address] [place] [address] 60943 Eosinophils/100 WBC (Bld) 0.6 % Normal [facility] Comment on above: Performed By: #### Sammy RILEY, 309-0, BAIT PAINTER, 4091-12 #### [facility] ([id number]) [address] [place] [address] 04550 Erythrocyte distribution width (RBC) [Ratio] 18.5 % High 11.5-15.[address] [facility] Comment on above: Performed By: #### Sammy RILEY, 3094-0, BAIT PAINTER, 4091-12 #### [facility] ([id number]) [address] [place] [address] 02925 Hematocrit (Bld) [Volume fraction] 23.7 % Low 39-[address] [facility] Comment on above: Performed By: #### Sammy BCA, 3094-0, BAIT PAINTER, 4091-12 #### [facility] ([id number]) [address] [place] [address] 22208 Hemoglobin (Bld) [Mass/Vol] 7.8 g/dL Low 13.0-17.[address] [facility] Comment on above: Performed By: #### Sammy RILEY, 3094-0, BAIT PAINTER, 4091-12 #### [facility] ([id number]) [address] [place] [address] 59805 Lymphocytes (Bld) [#/Vol] 0.5 10*3/uL Low 1.0-3.[address] [facility] Comment on above: Performed By: #### Sammy RILEY, 3094-0, BAIT PAINTER, 4091-3 #### [facility] ([id number]) [address] [place] [address] 05949 Lymphocytes/100 WBC (Bld) 8.5 % Normal [facility] Comment on above: Performed By: #### Sammy RILEY, 3094-0, BAIT PAINTER, 4091-12 #### [facility] ([id number]) [address] [place] [address] 98404 MCH (RBC) [Entitic mass] 27.9 pg Normal 27-[address] [facility] Comment on above: Performed By: #### Sammy RILEY, 3094-0, BAIT PAINTER, 4091-12 #### [facility] ([id number]) [address] [place] [address] 41969 MCHC (RBC) [Mass/Vol] 32.9 g/dL Normal 32-36 [facility] Comment on above: Performed By: #### Sammy RILEY, 3094-0, BAIT PAINTER, 4091-12 #### [facility] ([id number]) [address] [place] [address] 04746 MCV (RBC) [Entitic vol] 85 fL Normal 80-100 [facility] Comment on above: Performed By: #### Sammy RILEY, 3094-0, BAIT PAINTER, 4091-12 #### [facility] ([id number]) [address] [place] [address] 90486 Monocytes (Bld) [#/Vol] 0.5 10*3/uL Normal 0-0.[address] [facility] Comment on above: Performed By: #### Sammy RILEY, 3094-0, BAIT PAINTER, 4091-12 #### [facility] ([id number]) [address] [place] [address] 28014 Monocytes/100 WBC (Bld) 9.2 % Normal [facility] Comment on above: Performed By: #### C BCA, 3094-0, BAIT PAINTER, 4091-3 #### [facility] ([id number]) [address] [place] [address] 45638 Neutrophils/100 WBC (Bld) 81.1 % Normal [facility] Comment on above: Performed By: #### C BCA, 3094-0, BAIT PAINTER, 4091-3 #### [facility] ([id number]) [address] [place] [address] 05415 Platelet mean volume (Bld) [Entitic vol] 8.8 fL Normal 7-[address] [facility] Comment on above: Performed By: #### Sammy BCA, 3094-0, BAIT PAINTER, 4091- #### [facility] ([id number]) [address] [place] [address] 93705 Platelets (Bld) [#/Vol] 101 10*3/uL Low 150-[address] [facility] Comment on above: Performed By: #### C BCA, 3094-0, BAIT PAINTER, 4091- #### [facility] ([id number]) [address] [place] [address] 81925 RBC COUNT 2.80 X10E12/L Low 4.10-5.[address] [facility] Comment on above: Performed By: #### C BCA, 3094-0, BAIT PAINTER, 4091- #### [facility] ([id number]) [address] [place] [address] 67315 WBC (Bld) [#/Vol] 5.8 10*3/uL Normal 4.0-11.0 [facility] Comment on above: Performed By: #### Sammy BCA, 3094-0, BAIT PAINTER, 4091- #### [facility] ([id number]) [address] [place] [address] CREATININEon 09-28-2023 Creatinine [Mass/Vol] 0.46 mg/dL Low 0.70-1.20 [facility] Comment on above: Result Comment: METH OD TRACEABLE TO IDMS STANDARD Performed By: #### C BCA, 3094-0, BAIT PAINTER, 4092-3 #### [facility] ([id number]) [address] [place] [id number] eGFR (CKD-EPI) NON-RACE DEPENDENT >90 Normal >[address] [facility] Comment on above: Result Comment: Reported eGFR is based on the CKD-EPI 2020 equation that does not use a race coefficient. Performed By: #### C BCA, 3094-0, BAIT PAINTER, 4092-3 #### [facility] ([id number]) [address] [place] [id number] Vancomycin trough [Mass/Vol] on 09-28-2023 VANCOMYCIN TROUGH 12.3 ug/mL Normal 5.0-20.0 [facility] Comment on above: Performed By: #### C BCA, 3094-0, BAIT PAINTER, 4092-3 #### [facility] ([id number]) [address] [place] [id number] 30on 09-26-2023 30 The patient is Moderately Stable - Low risk of patient condition declining or worsening The patient's goals for the shift include Comfort The clinical goals for the shift include VSS Normal [facility] 30 Normal [facility] ANTI-XA (HEPARIN LEVEL)on HEPARIN UNFRACTIONATED (U/ML) IN PPP BY CHROMOGENIC METHOD 0.18 IU/mL Low 0.3-0.7 [facility] Comment on above: Result Comment: Gays roxaban and Apixaban will interfere with the anti Xa assay used to monitor UFH and LMWH. Performed By: #### L [id number] ####[facility] (BEAKER)[address] [place] [address] BASIC METABOLIC PANELon 12- Anion gap [Moles/Vol] 8 mmol/L Normal 7-20 [facility] Comment on above: Performed By: #### L AB15 ####[facility] (BEAKER)[address] [place] [address] Calcium [Mass/Vol] 8.5 mg/dL Low 8.6-10.3 [facility] Comment on above: Performed By: #### L [id number] ####[facility] (BEAKER)[address] [place] [address] Chloride [Moles/Vol] 105 mmol/L Normal 98-107 [facility] Comment on above: Performed By: #### L AB15 ####[facility] (BEAKER)[address] [place] [address] CO2 [Moles/Vol] 26 mmol/L Normal 21-[address] [facility] Comment on above: Performed By: #### L [id number] ####[facility] ([facility]ER)[address] [place] [address] Creatinine [Mass/Vol] 0.40 mg/dL Low 0.70-1.30 [facility] Comment on above: Performed By: #### L AB15 ####[facility] [place] [address] GLOMERULAR FILTRATION RATE ML/MIN/1.73 SQ M.PREDICTED 113.1 mL/min/1.73m*2 Normal >60.0 [facility] Comment on above: Result Comment: [facility]???s estimated glomerular filtration rate (eGFR) will [...] of individuals. Performed By: #### L [id number] ####[facility] ([facility]ER)[address] [place] [address] Glucose [Mass/Vol] 92 mg/dL Normal 70-100 [facility] Comment on above: Performed By: #### L [id number] ####[facility] [place] [address] Potassium [Moles/Vol] 3.8 mmol/L Normal 3.5-5.1 [facility] Comment on above: Performed By: #### L [id number] ####[facility] ([facility])[address] [place] [address] Sodium [Moles/Vol] 135 mmol/L Low 136-145 [facility] Comment on above: Performed By: #### L [id number] ####[facility] [place] [address] Urea nitrogen [Mass/Vol] 14 mg/dL Normal 7-25 [facility] Comment on above: Performed By: #### L [id number] ####[facility] ([facility])[address] [place] [address] UREA NITROGEN/CREATININE (MASS RATIO) IN SER/PLAS 35.0 Normal [facility] Comment on above: Performed By: #### L [id number] ####[facility] ([facility])[address] [place] [address] CBC WITH AUTO DIFFERENTIALon 09-26-2023 Erythrocyte distribution width (RBC) [Ratio] 18.0 % High 11.5-15.0 [facility] Comment on above: Performed By: #### L [id number] ####[facility] ([facility])[address] [place] [address] ERYTHROCYTE MEAN CORPUSCULAR HEMOGLOBIN CONCENTRATION (G/DL) BY AUTOMATED 32.0 g/dL Normal 32.0-35.0 [facility] Comment on above: Performed By: #### L [id number] ####[facility] ([facility])[address] [place] [address] Hematocrit (Bld) [Volume fraction] 22.8 % Low 39.0-55.0 [facility] Comment on above: Performed By: #### L [id number] ####[facility] ([facility])[address] [place] [address] Hemoglobin (Bld) [Mass/Vol] 7.3 g/dL Low 13.0-17.0 [facility] Comment on above: Performed By: #### L [id number] ####[facility] ([facility])[address] [place] [address] IMMATURE PLATELET FRACTION % 3.7 % Normal 0.8-6.3 [facility] Comment on above: Performed By: #### L [id number] ####[facility] ([facility])[address] [place] [address] MCH (RBC) [Entitic mass] 27.9 pg Normal 27.0-33.0 [facility] Comment on above: Performed By: #### L [id number] ####[facility] ([facility])[address] [place] [address] MCV (RBC) [Entitic vol] 87.0 fL Normal 82.0-98.0 [facility] Comment on above: Performed By: #### L [id number] ####[facility] ([facility])[address] [place] [address] NRBC (PER 100 WBCS) BY AUTOMATED COUNT 0.0 % Normal 0 [facility] Comment on above: Performed By: #### L [id number] ####[facility] ([facility])[address] [place] [address] PLATELETS (10*3/UL) IN BLOOD AUTOMATED COUNT 75 10*3/uL Low 150-400 [facility] Comment on above: Result Comment: CASSIE ODONNELL PV = 73 @ 09/25/23 Performed By: #### L [id number] ####[facility] ([facility])[address] [place] [address] RBC (Bld) [#/Vol] 2.62 10*6/uL Low 4.20-5.70 [facility] Comment on above: Performed By: #### L [id number] ####[facility] ([facility])[address] [place] [address] WBC (Bld) [#/Vol] 2.12 10*3/uL Low 4.00-10.60 [facility] Comment on above: Performed By: #### L [id number] ####[facility] ([facility])[address] [place] [address] DSon 09-26-2023 DS Normal [facility] MAGNESIUMon 09-26-2023 Magnesium [Mass/Vol] 1.6 mg/dL Low 1.9-2.7 [facility] Comment on above: Performed By: #### L [id number] ####[facility] ([facility])[address] [place] [address] MANUAL DIFFERENTIALon 2022 BASOPHILS (10*3/UL) IN BLOOD BY CALCULATION 0.01 10*3/uL Normal 0.00-0.20 [facility] Comment on above: Performed By: #### L [id number] ####[facility] ([facility])[address] [place] [address] BASOPHILS/100 LEUKOCYTES IN BLOOD BY AUTOMATED COUNT 0.5 % Normal 0.0-1.0 [facility] Comment on above: Performed By: #### L [id number] ####[facility] ([facility])[address] [place] [address] EOSINOPHILS (10*3/UL) IN BLOOD BY CALCULATION 0.02 10*3/uL Normal 0.00-0.50 [facility] Comment on above: Performed By: #### L [id number] ####[facility] ([facility])[address] [facility] [address] EOSINOPHILS/100 LEUKOCYTES IN BLOOD BY AUTOMATED COUNT 0.9 % Normal 0.0-6.0 [facility] Comment on above: Performed By: #### L [id number] ####[facility] ([facility])[address] [place] [address] IMMATURE GRANULOCYTES (10*3/UL) IN BLOOD BY CALCULATION 0.01 10*3/uL Normal 0.00-0.20 [facility] Comment on above: Performed By: #### L [id number] ####[facility] ([facility])[address] [place] [address] IMMATURE GRANULOCYTES/100 LEUKOCYTES IN BLOOD BY AUTOMATED COUNT 0.5 % Normal 0.0-1.0 [facility] Comment on above: Performed By: #### L [id number] ####[facility] ([facility])[address] [place], [place] [address] LYMPHOCYTES (10*3/UL) IN BLOOD BY CALCULATION 0.36 10*3/uL Low 1.20-4.00 [facility] Comment on above: Performed By: #### L [id number] ####[facility] ([facility])[address] [place], [place] [address] LYMPHOCYTES/100 LEUKOCYTES IN BLOOD BY AUTOMATED COUNT 17.0 % Low 20.0-45.0 [facility] Comment on above: Performed By: #### L [id number] ####[facility] ([facility])[address] [place], [place] [address] MONOCYTES (10*3/UL) IN BLOOD BY CALCUATION 0.24 10*3/uL Normal 0.10-1.00 [facility] Comment on above: Performed By: #### L [id number] ####[facility] ([facility])[address] [place] [address] MONOCYTES/100 LEUKOCYTES IN BLOOD BY AUTOMATED COUNT 11.3 % Normal 5.0-12.0 [facility] Comment on above: Performed By: #### L [id number] ####[facility] ([facility])[address] [place] [address] NEUTROPHILS (10*3/UL) IN BLOOD BY CALCULATION 1.5 10*3/uL Low 1.6-7.6 [facility] Comment on above: Performed By: #### L [id number] ####[facility] ([facility])[address] [facility] [address] NEUTROPHILS/100 LEUKOCYTES IN BLOOD BY AUTOMATED COUNT 69.8 % Normal 40.0-72.0 [facility] Comment on above: Performed By: #### L [id number] ####[facility] ([facility])[address] [place] [address] NURSNOTEon 09-26-2023 NURSNOTE Normal [facility] NURSNOTE Normal [facility] PHOSPHORUSon 09-26-2023 Magnesium [Mass/Vol] 3.2 mg/dL Normal 2.5-5.0 [facility] Comment on above: Performed By: #### L [id number] ####[facility] ([facility])[address] [place] [address] POCT GLUCOSE METER UNSOLICIT ED RESULTSon 09-26-2023 Glucose [Mass/Vol] 117 mg/dL High 70-105 [facility] Comment on above: Order Comment: Waive d Testing in the ED is performed under the ED CLIA certificate #[id number]. Result Comment: [email or web address] Performed By: #### L [id number] ####[facility] ([facility])[address] [place] [address] 30on 09-25-2023 30 Normal [facility] ANTI-XA (HEPARIN LEVEL)on HEPARIN UNFRACTIONATED (U/ML) IN PPP BY CHROMOGENIC METHOD 0.17 IU/mL Low 0.3-0.7 [facility] Comment on above: Result Comment: Gays roxaban and Apixaban will interfere with the anti Xa assay used to monitor UFH and LMWH. Performed By: #### L [id number] ####[facility] ([facility])[address] [facility] [address] HEPARIN UNFRACTIONATED (U/ML) IN PPP BY CHROMOGENIC METHOD 0.19 IU/mL Low 0.3-0.7 [facility] Comment on above: Result Comment: Masha roxaban and Apixaban will interfere with the anti Xa assay used to monitor UFH and LMWH. Performed By: #### L [id number] ####[facility] ([facility])[address] [place] [address] HEPARIN UNFRACTIONATED (U/ML) IN PPP BY CHROMOGENIC METHOD 0.15 IU/mL Invalid Interpretation Code 0.3-0.7 [facility] Comment on above: Result Comment: Masha roxaban and Apixaban will interfere with the anti Xa assay used to monitor UFH and LMWH. Performed By: #### L [id number] ####[facility] ([facility])[address] [place] [address] APTTon 09-25-2023 ACTIVATED PARTIAL THROMBOPLASTIN TIME IN PPP BY COAGULATION ASSAY 71.9 Seconds High 25.0-35.0 [facility] Comment on above: Result Comment: Clin ical significance of the APTT is questionable in the presence of heparin. Performed By: #### L [id number] ####[facility] ([facility])[address] [place] [address] BASIC METABOLIC PANELon 09-09 Anion gap [Moles/Vol] 8 mmol/L Normal 7-20 [facility] Comment on above: Performed By: #### L [id number] ####[facility] ([facility])[address] [place] [address] Calcium [Mass/Vol] 8.4 mg/dL Low 8.6-10.3 [facility] Comment on above: Performed By: #### L [id number] ####[facility] ([facility])[address] [place] [address] Chloride [Moles/Vol] 105 mmol/L Normal 98-107 [facility] Comment on above: Performed By: #### L [id number] ####[facility] ([facility])[address] [facility] [address] CO2 [Moles/Vol] 25 mmol/L Normal 21-[address] [facility] Comment on above: Performed By: #### L [id number] ####[facility] ([facility])[address] [place] [address] Creatinine [Mass/Vol] 0.31 mg/dL Low 0.70-1.30 [facility] Comment on above: Performed By: #### L [id number] ####[facility] ([facility])[address] [place] [address] GLOMERULAR FILTRATION RATE ML/MIN/1.73 SQ M.PREDICTED 122.1 mL/min/1.73m*2 Normal >60.0 [facility] Comment on above: Result Comment: [facility]???s estimated glomerular filtration rate (eGFR) will [...] of individuals. Performed By: #### L [id number] ####[facility] ([facility])[address] [place] [address] Glucose [Mass/Vol] 107 mg/dL High 70-100 [facility] Comment on above: Performed By: #### L [id number] ####[facility] ([facility])[address] [place] [address] Potassium [Moles/Vol] 3.7 mmol/L Normal 3.5-5.1 [facility] Comment on above: Performed By: #### L [id number] ####[facility] ([facility])[address] [place] [address] Sodium [Moles/Vol] 134 mmol/L Low 136-145 [facility] Comment on above: Performed By: #### L [id number] ####[facility] ([facility])[address] [facility] [address] Urea nitrogen [Mass/Vol] 13 mg/dL Normal 7-25 [facility] Comment on above: Performed By: #### L [id number] ####[facility] ([facility] [place] [address] UREA NITROGEN/CREATININE (MASS RATIO) IN SER/PLAS 41.9 Normal [facility] Comment on above: Performed By: #### L [id number] ####[facility] ([facility])[address] [place] [address] CBC WITH AUTO DIFFERENTIALon 09-25-2023 Erythrocyte distribution width (RBC) [Ratio] 17.7 % High 11.5-15.0 [facility] Comment on above: Performed By: #### L [id number] ####[facility] ([facility])[address] [place] [address] ERYTHROCYTE MEAN CORPUSCULAR HEMOGLOBIN CONCENTRATION (G/DL) BY AUTOMATED 31.3 g/dL Low 32.0-35.0 [facility] Comment on above: Performed By: #### L [id number] ####[facility] ([facility])[address] [place] [address] Hematocrit (Bld) [Volume fraction] 24.0 % Low 39.0-55.0 [facility] Comment on above: Performed By: #### L [id number] ####[facility] ([facility])[address] [place] [address] Hemoglobin (Bld) [Mass/Vol] 7.5 g/dL Low 13.0-17.0 [facility] Comment on above: Performed By: #### L [id number] ####[facility] ([facility])[address] [place] [address] IMMATURE PLATELET FRACTION % 2.7 % Normal 0.8-6.3 [facility] Comment on above: Performed By: #### L [id number] ####[facility] ([facility])[address] [place] [address] MCH (RBC) [Entitic mass] 27.0 pg Normal 27.0-33.0 [facility] Comment on above: Performed By: #### L [id number] ####[facility] ([facility])[address] [place] [address] MCV (RBC) [Entitic vol] 86.3 fL Normal 82.0-98.0 [facility] Comment on above: Performed By: #### L [id number] ####[facility] ([facility])[address] [place] [address] NRBC (PER 100 WBCS) BY AUTOMATED COUNT 0.0 % Normal 0 [facility] Comment on above: Performed By: #### L [id number] ####[facility] ([facility])[address] [place] [address] PLATELETS (10*3/UL) IN BLOOD AUTOMATED COUNT 73 10*3/uL Low 150-400 [facility] Comment on above: Result Comment: Last plt 73 1d Performed By: #### L [id number] ####[facility] ([facility])[address] [place] [address] RBC (Bld) [#/Vol] 2.78 10*6/uL Low 4.20-5.70 [facility] Comment on above: Performed By: #### L [id number] ####[facility] ([facility])[address] [place] [address] WBC (Bld) [#/Vol] 2.11 10*3/uL Low 4.00-10.60 [facility] Comment on above: Performed By: #### L [id number] ####[facility] ([facility])[address] [place] [address] MAGNESIUMon 09-25-2023 Magnesium [Mass/Vol] 1.6 mg/dL Low 1.9-2.7 [facility] Comment on above: Performed By: #### L [id number] ####[facility] ([facility])[address] [place] [address] MANUAL DIFFERENTIALon 2022 BASOPHILS (10*3/UL) IN BLOOD BY CALCULATION 0.01 10*3/uL Normal 0.00-0.20 [facility] Comment on above: Performed By: #### L [id number] ####[facility] ([facility])[address] [place] [address] BASOPHILS/100 LEUKOCYTES IN BLOOD BY AUTOMATED COUNT 0.5 % Normal 0.0-1.0 [facility] Comment on above: Performed By: #### L [id number] ####[facility] ([facility])[address] [place] [address] EOSINOPHILS (10*3/UL) IN BLOOD BY CALCULATION 0.04 10*3/uL Normal 0.00-0.50 [facility] Comment on above: Performed By: #### L [id number] ####[facility] ([facility])[address] [place] [address] EOSINOPHILS/100 LEUKOCYTES IN BLOOD BY AUTOMATED COUNT 1.9 % Normal 0.0-6.0 [facility] Comment on above: Performed By: #### L [id number] ####[facility] ([facility])[address] [place] [address] IMMATURE GRANULOCYTES (10*3/UL) IN BLOOD BY CALCULATION 0.01 10*3/uL Normal 0.00-0.20 [facility] Comment on above: Performed By: #### L [id number] ####[facility] ([facility])[address] [place] [address] IMMATURE GRANULOCYTES/100 LEUKOCYTES IN BLOOD BY AUTOMATED COUNT 0.5 % Normal 0.0-1.0 [facility] Comment on above: Performed By: #### L [id number] ####[facility] ([facility])[address] [place] [address] LYMPHOCYTES (10*3/UL) IN BLOOD BY CALCULATION 0.37 10*3/uL Low 1.20-4.00 [facility] Comment on above: Performed By: #### L [id number] ####[facility] ([facility])[address] [place], [place] [address] LYMPHOCYTES/100 LEUKOCYTES IN BLOOD BY AUTOMATED COUNT 17.5 % Low 20.0-45.0 [facility] Comment on above: Performed By: #### L [id number] ####[facility] ([facility])[address] [place] [address] MONOCYTES (10*3/UL) IN BLOOD BY CALCUATION 0.22 10*3/uL Normal 0.10-1.00 [facility] Comment on above: Performed By: #### L [id number] ####[facility] ([facility])[address] [place] [address] MONOCYTES/100 LEUKOCYTES IN BLOOD BY AUTOMATED COUNT 10.4 % Normal 5.0-12.0 [facility] Comment on above: Performed By: #### L [id number] ####[facility] ([facility])[address] [place] [address] NEUTROPHILS (10*3/UL) IN BLOOD BY CALCULATION 1.5 10*3/uL Low 1.6-7.6 [facility] Comment on above: Performed By: #### L [id number] ####[facility] ([facility])[address] [place] [address] NEUTROPHILS/100 LEUKOCYTES IN BLOOD BY AUTOMATED COUNT 69.2 % Normal 40.0-72.0 [facility] Comment on above: Performed By: #### L [id number] ####[facility] ([facility])[address] [place] [address] NURSNOTEon 09-25-2023 NURSNOTE Pt would not let francis lee change his wound vac, stated that it would be changed tomorrow when he is discharged. He did however let us bathe him, change linens and change his picc line dressing today. Paulina Kay RN Normal [facility] PHOSPHORUSon 09-25-2023 Magnesium [Mass/Vol] 2.7 mg/dL Normal 2.5-5.0 [facility] Comment on above: Performed By: #### L [id number] ####[facility] ([facility])[address] [place] [address] POCT GLUCOSE METER UNSOLICIT ED RESULTSon 09-25-2023 Glucose [Mass/Vol] 97 mg/dL Normal 70-105 [facility] Comment on above: Order Comment: Waive d Testing in the ED is performed under the ED CLIA certificate #[id number]. Result Comment: [email or web address] Performed By: #### L [id number] ####[facility] ([facility])[address] [place] [address] Glucose [Mass/Vol] 188 mg/dL High 70-105 [facility] Comment on above: Order Comment: Waive d Testing in the ED is performed under the ED CLIA certificate #[id number]. Result Comment: [email or web address] Performed By: #### L [id number] ####[facility] ([facility])[address] [place] [address] Glucose [Mass/Vol] 125 mg/dL High 70-105 [facility] Comment on above: Order Comment: Waive d Testing in the ED is performed under the ED CLIA certificate #[id number]. Result Comment: [email or web address] Performed By: #### L [id number] ####[facility] ([facility])[address] [place] [address] Glucose [Mass/Vol] 108 mg/dL High 70-105 [facility] Comment on above: Order Comment: Waive d Testing in the ED is performed under the ED CLIA certificate #[id number]. Result Comment: [email or web address] Performed By: #### L [id number] ####[facility] ([facility])[address] [place] [address] 30on 09-24-2023 30 Normal [facility] ANTI-XA (HEPARIN LEVEL)on HEPARIN UNFRACTIONATED (U/ML) IN PPP BY CHROMOGENIC METHOD <0.10 Invalid Interpretation Code 0.3-0.7 [facility] Comment on above: Result Comment: Masha roxaban and Apixaban will interfere with the anti Xa assay used to monitor UFH and LMWH. Performed By: #### L [id number] ####[facility] ([facility])[address] [place] [address] BASIC METABOLIC PANELon 09-09 Anion gap [Moles/Vol] 8 mmol/L Normal 7-20 [facility] Comment on above: Performed By: #### L [id number] ####[facility] ([facility])[address] [place] [address] Calcium [Mass/Vol] 8.4 mg/dL Low 8.6-10.3 [facility] Comment on above: Performed By: #### L [id number] ####[facility] ([facility])[address] [place] [address] Chloride [Moles/Vol] 103 mmol/L Normal 98-107 [facility] Comment on above: Performed By: #### L [id number] ####[facility] ([facility])[address] [place] [address] CO2 [Moles/Vol] 28 mmol/L Normal 21-[address] [facility] Comment on above: Performed By: #### L [id number] ####[facility] ([facility])[address] [place] [address] Creatinine [Mass/Vol] 0.36 mg/dL Low 0.70-1.30 [facility] Comment on above: Performed By: #### L [id number] ####[facility] ([facility])[address] [place] [address] GLOMERULAR FILTRATION RATE ML/MIN/1.73 SQ M.PREDICTED 116.7 mL/min/1.73m*2 Normal >60.0 [facility] Comment on above: Result Comment: [facility]???s estimated glomerular filtration rate (eGFR) will [...] of individuals. Performed By: #### L [id number] ####[facility] [place] [address] Glucose [Mass/Vol] 100 mg/dL Normal 70-100 [facility] Comment on above: Performed By: #### L [id number] ####[facility] ([facility])[address] [place] [address] Potassium [Moles/Vol] 3.5 mmol/L Normal 3.5-5.1 [facility] Comment on above: Performed By: #### L [id number] ####[facility] ([facility])[address] [place] [address] Sodium [Moles/Vol] 135 mmol/L Low 136-145 [facility] Comment on above: Performed By: #### L [id number] ####[facility] ([facility])[address] [place] [address] Urea nitrogen [Mass/Vol] 13 mg/dL Normal 7-25 [facility] Comment on above: Performed By: #### L [id number] ####[facility] ([facility])[address] [place] [address] UREA NITROGEN/CREATININE (MASS RATIO) IN SER/PLAS 36.1 Normal [facility] Comment on above: Performed By: #### L [id number] ####[facility] ([facility])[address] [place] [address] CBC WITH AUTO DIFFERENTIALon 09-24-2023 Erythrocyte distribution width (RBC) [Ratio] 17.8 % High 11.5-15.0 [facility] Comment on above: Performed By: #### L [id number] ####[facility] ([facility])[address] [place] [address] ERYTHROCYTE MEAN CORPUSCULAR HEMOGLOBIN CONCENTRATION (G/DL) BY AUTOMATED 32.1 g/dL Normal 32.0-35.0 [facility] Comment on above: Performed By: #### L [id number] ####[facility] ([facility])[address] [place] [address] Hematocrit (Bld) [Volume fraction] 23.7 % Low 39.0-55.0 [facility] Comment on above: Performed By: #### L [id number] ####[facility] ([facility])[address] [place] [address] Hemoglobin (Bld) [Mass/Vol] 7.6 g/dL Low 13.0-17.0 [facility] Comment on above: Performed By: #### L [id number] ####[facility] ([facility])[address] [address] IMMATURE PLATELET FRACTION % 3.1 % Normal 0.8-6.3 [facility] Comment on above: Performed By: #### L [id number] ####[facility] ([facility])[address] [place] [address] MCH (RBC) [Entitic mass] 27.7 pg Normal 27.0-33.0 [facility] Comment on above: Performed By: #### L [id number] ####[facility] ([facility])[address] [place] [address] MCV (RBC) [Entitic vol] 86.5 fL Normal 82.0-98.0 [facility] Comment on above: Performed By: #### L [id number] ####[facility] ([facility])[address] [place] [address] NRBC (PER 100 WBCS) BY AUTOMATED COUNT 0.0 % Normal 0 [facility] Comment on above: Performed By: #### L [id number] ####[facility] ([facility])[address] [place] [address] PLATELETS (10*3/UL) IN BLOOD AUTOMATED COUNT 73 10*3/uL Low 150-400 [facility] Comment on above: Performed By: #### L [id number] ####[facility] ([facility])[address] [place] [address] RBC (Bld) [#/Vol] 2.74 10*6/uL Low 4.20-5.70 [facility] Comment on above: Performed By: #### L [id number] ####[facility] ([facility])[address] [place] [address] WBC (Bld) [#/Vol] 2.37 10*3/uL Low 4.00-10.60 [facility] Comment on above: Performed By: #### L [id number] ####[facility] ([facility])[address] [place] [address] MAGNESIUMon 09-24-2023 Magnesium [Mass/Vol] 1.6 mg/dL Low 1.9-2.7 [facility] Comment on above: Performed By: #### L [id number] ####[facility] ([facility])[address] [place] [address] MANUAL DIFFERENTIALon 2022 BASOPHILS (10*3/UL) IN BLOOD BY CALCULATION 0.01 10*3/uL Normal 0.00-0.20 [facility] Comment on above: Performed By: #### L [id number] ####[facility] ([facility])[address] [place] [address] BASOPHILS/100 LEUKOCYTES IN BLOOD BY AUTOMATED COUNT 0.4 % Normal 0.0-1.0 [facility] Comment on above: Performed By: #### L [id number] ####[facility] ([facility])[address] [place] [address] EOSINOPHILS (10*3/UL) IN BLOOD BY CALCULATION 0.03 10*3/uL Normal 0.00-0.50 [facility] Comment on above: Performed By: #### L [id number] ####[facility] ([facility])[address] [place] [address] EOSINOPHILS/100 LEUKOCYTES IN BLOOD BY AUTOMATED COUNT 1.3 % Normal 0.0-6.0 [facility] Comment on above: Performed By: #### L [id number] ####[facility] ([facility])[address] [place] [address] IMMATURE GRANULOCYTES (10*3/UL) IN BLOOD BY CALCULATION 0.01 10*3/uL Normal 0.00-0.20 [facility] Comment on above: Performed By: #### L [id number] ####[facility] ([facility])[address] [place] [address] IMMATURE GRANULOCYTES/100 LEUKOCYTES IN BLOOD BY AUTOMATED COUNT 0.4 % Normal 0.0-1.0 [facility] Comment on above: Performed By: #### L [id number] ####[facility] ([facility])[address] [place] [address] LYMPHOCYTES (10*3/UL) IN BLOOD BY CALCULATION 0.37 10*3/uL Low 1.20-4.00 [facility] Comment on above: Performed By: #### L [id number] ####[facility] ([facility])[address] [place] [address] LYMPHOCYTES/100 LEUKOCYTES IN BLOOD BY AUTOMATED COUNT 15.6 % Low 20.0-45.0 [facility] Comment on above: Performed By: #### L [id number] ####[facility] ([facility])[address] [place] [address] MONOCYTES (10*3/UL) IN BLOOD BY CALCUATION 0.19 10*3/uL Normal 0.10-1.00 [facility] Comment on above: Performed By: #### L [id number] ####[facility] ([facility])[address] [place] [address] MONOCYTES/100 LEUKOCYTES IN BLOOD BY AUTOMATED COUNT 8.0 % Normal 5.0-12.0 [facility] Comment on above: Performed By: #### L [id number] ####[facility] ([facility])[address] [place] [address] NEUTROPHILS (10*3/UL) IN BLOOD BY CALCULATION 1.8 10*3/uL Normal 1.6-7.6 [facility] Comment on above: Performed By: #### L [id number] ####[facility] ([facility])[address] [place] [address] NEUTROPHILS/100 LEUKOCYTES IN BLOOD BY AUTOMATED COUNT 74.3 % High 40.0-72.0 [facility] Comment on above: Performed By: #### L [id number] ####[facility] ([facility])[address] [place] [address] PHOSPHORUSon 09-24-2023 Magnesium [Mass/Vol] 3.0 mg/dL Normal 2.5-5.0 [facility] Comment on above: Performed By: #### L [id number] ####[facility] ([facility])[address] [place] [address] POCT GLUCOSE METER UNSOLICIT ED RESULTSon 09-24-2023 Glucose [Mass/Vol] 188 mg/dL High 70-105 [facility] Comment on above: Order Comment: Waive d Testing in the ED is performed under the ED CLIA certificate #[id number]. Result Comment: anabel myers Performed By: #### L [id number] ####[facility] ([facility])[address] [place] [address] Glucose [Mass/Vol] 170 mg/dL High 70-105 [facility] Comment on above: Order Comment: Waive d Testing in the ED is performed under the ED CLIA certificate #[id number]. Result Comment: [email or web address] Performed By: #### L [id number] ####[facility] ([facility])[address] [place] [address] Glucose [Mass/Vol] 237 mg/dL High 70-105 [facility] Comment on above: Order Comment: Waive d Testing in the ED is performed under the ED CLIA certificate #[id number]. Result Comment: [email or web address] Performed By: #### L [id number] ####[facility] ([facility])[address] [place] [address] Glucose [Mass/Vol] 105 mg/dL Normal 70-105 [facility] Comment on above: Order Comment: Waive d Testing in the ED is performed under the ED CLIA certificate #[id number]. Result Comment: [email or web address] Performed By: #### L [id number] ####[facility] ([facility])[address] [place] [address] VANCOMYCIN, TROUGHon 09-24-2 023 VANCOMYCIN (UG/ML) IN SER/PLAS - TROUGH 11.7 ug/mL Normal 5.0-20.0 [facility] Comment on above: Performed By: #### L [id number] ####[facility] ([facility])[address] [place] [address] 30on 09-23-2023 30 Normal [facility] 30 Normal [facility] ANTI-XA (HEPARIN LEVEL)on HEPARIN UNFRACTIONATED (U/ML) IN PPP BY CHROMOGENIC METHOD 0.30 IU/mL Normal 0.3-0.7 [facility] Comment on above: Result Comment: Gays roxaban and Apixaban will interfere with the anti Xa assay used to monitor UFH and LMWH. Performed By: #### L [id number] ####[facility] ([facility])[address] [place] [address] HEPARIN UNFRACTIONATED (U/ML) IN PPP BY CHROMOGENIC METHOD 0.38 IU/mL Normal 0.3-0.7 [facility] Comment on above: Result Comment: Gays roxaban and Apixaban will interfere with the anti Xa assay used to monitor UFH and LMWH. Performed By: #### L [id number] ####[facility] ([facility])[address] [place] [address] HEPARIN UNFRACTIONATED (U/ML) IN PPP BY CHROMOGENIC METHOD 0.35 IU/mL Normal 0.3-0.7 [facility] Comment on above: Result Comment: Masha roxaban and Apixaban will interfere with the anti Xa assay used to monitor UFH and LMWH. Performed By: #### L [id number] ####[facility] ([facility])[address] [place] [address] HEPARIN UNFRACTIONATED (U/ML) IN PPP BY CHROMOGENIC METHOD 0.29 IU/mL Low 0.3-0.7 [facility] Comment on above: Result Comment: Gays roxaban and Apixaban will interfere with the anti Xa assay used to monitor UFH and LMWH. Performed By: #### L [id number] ####[facility] ([facility])[address] [place] [address] BASIC METABOLIC PANELon 12- Anion gap [Moles/Vol] 8 mmol/L Normal 7-20 [facility] Comment on above: Performed By: #### L [id number] ####[facility] ([facility])[address] [place] [address] Calcium [Mass/Vol] 7.9 mg/dL Low 8.6-10.3 [facility] Comment on above: Performed By: #### L [id number] ####[facility] ([facility])[address] [place] [address] Chloride [Moles/Vol] 104 mmol/L Normal 98-107 [facility] Comment on above: Performed By: #### L [id number] ####[facility] ([facility])[address] [place] [address] CO2 [Moles/Vol] 26 mmol/L Normal 21-[address] [facility] Comment on above: Performed By: #### L [id number] ####[facility] ([facility])[address] [place] [address] Creatinine [Mass/Vol] 0.44 mg/dL Low 0.70-1.30 [facility] Comment on above: Performed By: #### L [id number] ####[facility] ([facility])[address] [place] [address] GLOMERULAR FILTRATION RATE ML/MIN/1.73 SQ M.PREDICTED 109.9 mL/min/1.73m*2 Normal >60.0 [facility] Comment on above: Result Comment: [facility]???s estimated glomerular filtration rate (eGFR) will [...] of individuals. Performed By: #### L [id number] ####[facility] ([facility])[address] [place] [address] Glucose [Mass/Vol] 110 mg/dL High 70-100 [facility] Comment on above: Performed By: #### L [id number] ####[facility] ([facility])[address] [place] [address] Potassium [Moles/Vol] 3.7 mmol/L Normal 3.5-5.1 [facility] Comment on above: Performed By: #### L [id number] ####[facility] ([facility])[address] [place] [address] Sodium [Moles/Vol] 134 mmol/L Low 136-145 [facility] Comment on above: Performed By: #### L [id number] ####[facility] ([facility])[address] [place] [address] Urea nitrogen [Mass/Vol] 16 mg/dL Normal 7-25 [facility] Comment on above: Performed By: #### L [id number] ####[facility] ([facility])[address] [place] [address] UREA NITROGEN/CREATININE (MASS RATIO) IN SER/PLAS 36.4 Normal [facility] Comment on above: Performed By: #### L [id number] ####[facility] ([facility])[address] [place] [address] CBC WITH AUTO DIFFERENTIALon 09-23-2023 Erythrocyte distribution width (RBC) [Ratio] 17.6 % High 11.5-15.0 [facility] Comment on above: Performed By: #### L [id number] ####[facility] ([facility])[address] [place] [address] ERYTHROCYTE MEAN CORPUSCULAR HEMOGLOBIN CONCENTRATION (G/DL) BY AUTOMATED 32.3 g/dL Normal 32.0-35.0 [facility] Comment on above: Performed By: #### L [id number] ####[facility] ([facility])[address] [place] [address] Hematocrit (Bld) [Volume fraction] 23.5 % Low 39.0-55.0 [facility] Comment on above: Performed By: #### L [id number] ####[facility] ([facility])[address] [place] [address] Hemoglobin (Bld) [Mass/Vol] 7.6 g/dL Low 13.0-17.0 [facility] Comment on above: Result Comment: Resu lts checked pt has wound vac after surgery on 09/22/23 Performed By: #### L [id number] ####[facility] ([facility])[address] [place] [address] IMMATURE PLATELET FRACTION % 2.3 % Normal 0.8-6.3 [facility] Comment on above: Performed By: #### L [id number] ####[facility] ([facility])[address] [place] [address] MCH (RBC) [Entitic mass] 27.7 pg Normal 27.0-33.0 [facility] Comment on above: Performed By: #### L [id number] ####[facility] ([facility])[address] [place] [address] MCV (RBC) [Entitic vol] 85.8 fL Normal 82.0-98.[address] Comment on above: Performed By: #### L [id number] ####[facility] ([facility])[address] [place] [address] NRBC (PER 100 WBCS) BY AUTOMATED COUNT 0.0 % Normal 0 [facility] Comment on above: Performed By: #### L [id number] ####[facility] ([facility])[address] [place] [address] PLATELETS (10*3/UL) IN BLOOD AUTOMATED COUNT 71 10*3/uL Low 150-400 [facility] Comment on above: Result Comment: Last plt 109 1d Performed By: #### L [id number] ####[facility] ([facility])[address] [place] [address] RBC (Bld) [#/Vol] 2.74 10*6/uL Low 4.20-5.70 [facility] Comment on above: Performed By: #### L [id number] ####[facility] ([facility])[address] [place] [address] WBC (Bld) [#/Vol] 2.37 10*3/uL Low 4.00-10.60 [facility] Comment on above: Performed By: #### L [id number] ####[facility] ([facility])[address] [place] [address] HEMOGLOBIN AND HEMATOCRIT, B LOODon 09-23-2023 Hematocrit (Bld) [Volume fraction] 26.5 % Low 39.0-55.0 [facility] Comment on above: Performed By: #### L [id number] ####[facility] ([facility])[address] [place] [address] Hemoglobin (Bld) [Mass/Vol] 8.4 g/dL Low 13.0-17.0 [facility] Comment on above: Performed By: #### L [id number] ####[facility] ([facility])[address] [place] [address] Hematocrit (Bld) [Volume fraction] 24.0 % Low 39.0-55.0 [facility] Comment on above: Performed By: #### L [id number] ####[facility] ([facility])[address] [place] [address] Hemoglobin (Bld) [Mass/Vol] 7.7 g/dL Low 13.0-17.0 [facility] Comment on above: Performed By: #### L [id number] ####[facility] ([facility])[address] [place] [address] MAGNESIUMon 09-23-2023 Magnesium [Mass/Vol] 1.6 mg/dL Low 1.9-2.7 [facility] Comment on above: Performed By: #### L [id number] ####[facility] ([facility])[address] [place] [address] MANUAL DIFFERENTIALon 2022 BASOPHILS (10*3/UL) IN BLOOD BY CALCULATION 0.01 10*3/uL Normal 0.00-0.20 [facility] Comment on above: Performed By: #### L [id number] ####[facility] ([facility])[address] [place] [address] BASOPHILS/100 LEUKOCYTES IN BLOOD BY AUTOMATED COUNT 0.4 % Normal 0.0-1.0 [facility] Comment on above: Performed By: #### L [id number] ####[facility] ([facility])[address] [place] [address] EOSINOPHILS (10*3/UL) IN BLOOD BY CALCULATION 0.04 10*3/uL Normal 0.00-0.50 [facility] Comment on above: Performed By: #### L [id number] ####[facility] ([facility])[address] [place] [address] EOSINOPHILS/100 LEUKOCYTES IN BLOOD BY AUTOMATED COUNT 1.7 % Normal 0.0-6.0 [facility] Comment on above: Performed By: #### L [id number] ####[facility] ([facility])[address] [place] [address] IMMATURE GRANULOCYTES (10*3/UL) IN BLOOD BY CALCULATION 0.01 10*3/uL Normal 0.00-0.20 [facility] Comment on above: Performed By: #### L [id number] ####[facility] ([facility])[address] [place] [address] IMMATURE GRANULOCYTES/100 LEUKOCYTES IN BLOOD BY AUTOMATED COUNT 0.4 % Normal 0.0-1.0 [facility] Comment on above: Performed By: #### L [id number] ####[facility] ([facility])[address] [place] [address] LYMPHOCYTES (10*3/UL) IN BLOOD BY CALCULATION 0.36 10*3/uL Low 1.20-4.00 [facility] Comment on above: Performed By: #### L [id number] ####[facility] ([facility])[address] [place] [place] [address] LYMPHOCYTES/100 LEUKOCYTES IN BLOOD BY AUTOMATED COUNT 15.2 % Low 20.0-45.0 [facility] Comment on above: Performed By: #### L [id number] ####[facility] ([facility])[address] [place] [address] MONOCYTES (10*3/UL) IN BLOOD BY CALCUATION 0.18 10*3/uL Normal 0.10-1.00 [facility] Comment on above: Performed By: #### L [id number] ####[facility] ([facility])[address] [place] [address] MONOCYTES/100 LEUKOCYTES IN BLOOD BY AUTOMATED COUNT 7.6 % Normal 5.0-12.0 [facility] Comment on above: Performed By: #### L [id number] ####[facility] ([facility])[address] [place] [address] NEUTROPHILS (10*3/UL) IN BLOOD BY CALCULATION 1.8 10*3/uL Normal 1.6-7.6 [facility] Comment on above: Performed By: #### L [id number] ####[facility] ([facility])[address] [place] [address] NEUTROPHILS/100 LEUKOCYTES IN BLOOD BY AUTOMATED COUNT 74.7 % High 40.0-72.0 [facility] Comment on above: Performed By: #### L [id number] ####[facility] ([facility])[address] [place] [address] PHOSPHORUSon 09-23-2023 Magnesium [Mass/Vol] 2.4 mg/dL Low 2.5-5.0 [facility] Comment on above: Performed By: #### L [id number] ####[facility] ([facility])[address] [place] [address] POCT GLUCOSE METER UNSOLICIT ED RESULTSon 09-23-2023 Glucose [Mass/Vol] 188 mg/dL High 70-105 [facility] Comment on above: Order Comment: Waive d Testing in the ED is performed under the ED CLIA certificate #[id number]. Result Comment: anabel myers Performed By: #### L [id number] ####[facility] ([facility])[address] [place] [address] Glucose [Mass/Vol] 158 mg/dL High 70-105 [facility] Comment on above: Order Comment: Waive d Testing in the ED is performed under the ED CLIA certificate #[id number]. Result Comment: [email or web address] Performed By: #### L [id number] ####[facility] ([facility])[address] [place] [address] Glucose [Mass/Vol] 252 mg/dL High 70-105 [facility] Comment on above: Order Comment: Waive d Testing in the ED is performed under the ED CLIA certificate #[id number]. Result Comment: [email or web address] Performed By: #### L [id number] ####[facility] ([facility])[address] [place] [address] Glucose [Mass/Vol] 120 mg/dL High 70-105 [facility] Comment on above: Order Comment: Waive d Testing in the ED is performed under the ED CLIA certificate #[id number]. Result Comment: [email or web address] Performed By: #### L [id number] ####[facility] ([facility])[address] [place] [address] VANCOMYCIN, PEAKon VANCOMYCIN (UG/ML) IN SER/PLAS - PEAK 23.7 ug/mL Normal 20.0-50.0 [facility] Comment on above: Performed By: #### L [id number] ####[facility] ([facility])[address] [place] [address] 30on 09-22-2023 30 Normal [facility] 30 Normal [facility] 30 Normal [facility] ANTI-XA (HEPARIN LEVEL)on HEPARIN UNFRACTIONATED (U/ML) IN PPP BY CHROMOGENIC METHOD 0.21 IU/mL Low 0.3-0.7 [facility] Comment on above: Order Comment: Check anti-Xa level every 6 hours while on heparin infusion, or per protocol. Result Comment: Gays roxaban and Apixaban will interfere with the anti Xa assay used to monitor UFH and LMWH. Performed By: #### L [id number] ####[facility] ([facility])[address] [place] [address] HEPARIN UNFRACTIONATED (U/ML) IN PPP BY CHROMOGENIC METHOD 0.25 IU/mL Low 0.3-0.7 [facility] Comment on above: Order Comment: Check anti-Xa level every 6 hours while on heparin infusion, or per protocol. Result Comment: Masha roxaban and Apixaban will interfere with the anti Xa assay used to monitor UFH and LMWH. Performed By: #### L [id number] ####[facility] ([facility])[address] [place] [address] HEPARIN UNFRACTIONATED (U/ML) IN PPP BY CHROMOGENIC METHOD 0.22 IU/mL Low 0.3-0.7 [facility] Comment on above: Result Comment: Masha roxaban and Apixaban will interfere with the anti Xa assay used to monitor UFH and LMWH. Performed By: #### L [id number] ####[facility] ([facility])[address] [place] [address] HEPARIN UNFRACTIONATED (U/ML) IN PPP BY CHROMOGENIC METHOD 0.22 IU/mL Low 0.3-0.7 [facility] Comment on above: Order Comment: Check anti-Xa level every 6 hours while on heparin infusion, or per protocol. Result Comment: Gays roxaban and Apixaban will interfere with the anti Xa assay used to monitor UFH and LMWH. Performed By: #### L [id number] ####[facility] ([facility])[address] [place] [address] BASIC METABOLIC PANELon 12- Anion gap [Moles/Vol] 8 mmol/L Normal 7-20 [facility] Comment on above: Performed By: #### L [id number] ####[facility] ([facility])[address] [place] [address] Calcium [Mass/Vol] 8.0 mg/dL Low 8.6-10.3 [facility] Comment on above: Performed By: #### L [id number] ####[facility] ([facility])[address] [place] [address] Chloride [Moles/Vol] 102 mmol/L Normal 98-107 [facility] Comment on above: Performed By: #### L [id number] ####[facility] ([facility])[address] [place] [address] CO2 [Moles/Vol] 26 mmol/L Normal 21-[address] [facility] Comment on above: Performed By: #### L [id number] ####[facility] ([facility])[address] [place] [address] Creatinine [Mass/Vol] 0.41 mg/dL Low 0.70-1.30 [facility] Comment on above: Performed By: #### L [id number] ####[facility] [place] [address] GLOMERULAR FILTRATION RATE ML/MIN/1.73 SQ M.PREDICTED 112.2 mL/min/1.73m*2 Normal >60.0 [facility] Comment on above: Result Comment: [facility]???s estimated glomerular filtration rate (eGFR) will [...] of individuals. Performed By: #### L [id number] ####[facility] ([facility])[address] [place] [address] Glucose [Mass/Vol] 110 mg/dL High 70-100 [facility] Comment on above: Performed By: #### L [id number] ####[facility] ([facility])[address] [place] [address] Potassium [Moles/Vol] 3.7 mmol/L Normal 3.5-5.1 [facility] Comment on above: Performed By: #### L [id number] ####[facility] ([facility])[address] [place] [address] Sodium [Moles/Vol] 132 mmol/L Low 136-145 [facility] Comment on above: Performed By: #### L [id number] ####[facility] ([facility])[address] [place] [address] Urea nitrogen [Mass/Vol] 16 mg/dL Normal 7-25 [facility] Comment on above: Performed By: #### L [id number] ####[facility] ([facility])[address] [place] [address] UREA NITROGEN/CREATININE (MASS RATIO) IN SER/PLAS 39.0 Normal [facility] Comment on above: Performed By: #### L [id number] ####[facility] ([facility])[address] [place] [address] CBC WITH AUTO DIFFERENTIALon 09-22-2023 Basophils (Bld) [#/Vol] 0.00 10*3/uL Normal 0.00-0.20 [facility] Comment on above: Performed By: #### L [id number] ####[facility] ([facility])[address] [place] [address] Basophils/100 WBC (Bld) 0.0 % Normal 0.0-1.0 [facility] Comment on above: Performed By: #### L [id number] ####[facility] ([facility])[address] [place] [address] Eosinophils (Bld) [#/Vol] 0.03 10*3/uL Normal 0.00-0.50 [facility] Comment on above: Performed By: #### L [id number] ####[facility] ([facility])[address] [place] [address] Eosinophils/100 WBC (Bld) 0.7 % Normal 0.0-6.0 [facility] Comment on above: Performed By: #### L [id number] ####[facility] ([facility])[address] [place] [address] Erythrocyte distribution width (RBC) [Ratio] 17.6 % High 11.5-15.0 [facility] Comment on above: Performed By: #### L [id number] ####[facility] [place] [address] ERYTHROCYTE MEAN CORPUSCULAR HEMOGLOBIN CONCENTRATION (G/DL) BY AUTOMATED 32.2 g/dL Normal 32.0-35.0 [facility] Comment on above: Performed By: #### L [id number] ####[facility] ([facility])[address] [place] [address] Hematocrit (Bld) [Volume fraction] 27.6 % Low 39.0-55.0 [facility] Comment on above: Performed By: #### L [id number] ####[facility] ([facility])[address] [place] [address] Hemoglobin (Bld) [Mass/Vol] 8.9 g/dL Low 13.0-17.0 [facility] Comment on above: Performed By: #### L [id number] ####[facility] ([facility])[address] [place] [address] Immature granulocytes (Bld) [#/Vol] 0.02 10*3/uL Normal 0.00-0.20 [facility] Comment on above: Performed By: #### L [id number] ####[facility] [place] [address] Immature granulocytes/100 WBC (Bld) 0.5 % Normal 0.0-1.0 [facility] Comment on above: Performed By: #### L [id number] ####[facility] ([facility])[address] [place] [address] Lymphocytes (Bld) [#/Vol] 0.45 10*3/uL Low 1.20-4.00 [facility] Comment on above: Performed By: #### L [id number] ####[facility] [place] [address] Lymphocytes/100 WBC (Bld) 10.6 % Low 20.0-45.0 [facility] Comment on above: Performed By: #### L [id number] ####[facility] [place] [address] MCH (RBC) [Entitic mass] 27.5 pg Normal 27.0-33.0 [facility] Comment on above: Performed By: #### L [id number] ####[facility])[address] [place], [place] [address] MCV (RBC) [Entitic vol] 85.2 fL Normal 82.0-98.0 [facility] Comment on above: Performed By: #### L [id number] ####[facility] ([facility])[address] [place], [place] [address] Monocytes (Bld) [#/Vol] 0.45 10*3/uL Normal 0.10-1.00 [facility] Comment on above: Performed By: #### L [id number] ####[facility] ([facility])[address] [place], [place] [address] Monocytes/100 WBC (Bld) 10.6 % Normal 5.0-12.0 [facility] Comment on above: Performed By: #### L [id number] ####[facility] ([facility])[address] [place] [address] Neutrophils (Bld) [#/Vol] 3.28 10*3/uL Normal 1.60-7.60 [facility] Comment on above: Performed By: #### L [id number] ####[facility] ([facility])[address] [place] [address] Neutrophils/100 WBC (Bld) 77.6 % High 40.0-72.0 [facility] Comment on above: Performed By: #### L [id number] ####[facility] ([facility] [place] [address] NRBC (PER 100 WBCS) BY AUTOMATED COUNT 0.0 % Normal 0 [facility] Comment on above: Performed By: #### L [id number] ####[facility] ([facility])[address] [place] [address] PLATELETS (10*3/UL) IN BLOOD AUTOMATED COUNT 109 10*3/uL Low 150-400 [facility] Comment on above: Performed By: #### L [id number] ####[facility] ([facility])[address] [address] RBC (Bld) [#/Vol] 3.24 10*6/uL Low 4.20-5.70 [facility] Comment on above: Performed By: #### L [id number] ####[facility] ([facility])[address] [address] WBC (Bld) [#/Vol] 4.23 10*3/uL Normal 4.00-10.60 [facility] Comment on above: Performed By: #### L [id number] ####[facility] ([facility])[address] [place], [place] [address] HEMOGLOBIN AND HEMATOCRIT, B LOODon 09-22-2023 Hematocrit (Bld) [Volume fraction] 30.1 % Low 39.0-55.0 [facility] Comment on above: Performed By: #### L [id number] ####[facility] ([facility])[address] [place], [place] [address] Hemoglobin (Bld) [Mass/Vol] 9.8 g/dL Low 13.0-17.0 [facility] Comment on above: Performed By: #### L [id number] ####[facility] ([facility])[address] [place] [address] MAGNESIUMon 12-14-2023 Magnesium [Mass/Vol] 1.7 mg/dL Low 1.9-2.7 [facility] Comment on above: Performed By: #### L [id number] ####[facility] ([facility])[address] [place] [address] PHOSPHORUSon 09-22-2023 Magnesium [Mass/Vol] 2.0 mg/dL Low 2.5-5.0 [facility] Comment on above: Performed By: #### L [id number] ####[facility] ([facility])[address] [facility] [address] POCT GLUCOSE METER UNSOLICIT ED RESULTSon 09-22-2023 Glucose [Mass/Vol] 102 mg/dL Normal 70-105 [facility] Comment on above: Order Comment: Waive d Testing in the ED is performed under the ED CLIA certificate #[id number]. Result Comment: [email or web address] Performed By: #### L [id number] ####[facility] ([facility])[address] [facility] [address] Glucose [Mass/Vol] 212 mg/dL High 70-105 [facility] Comment on above: Order Comment: Waive d Testing in the ED is performed under the ED CLIA certificate #[id number]. Result Comment: [email or web address] Performed By: #### L [id number] ####[facility] ([facility])[address] [facility] [address] Glucose [Mass/Vol] 177 mg/dL High 70-105 [facility] Comment on above: Order Comment: Waive d Testing in the ED is performed under the ED CLIA certificate #[id number]. Result Comment: [email or web address] Performed By: #### L [id number] ####[facility] ([facility])[address] [facility] [address] VANCOMYCIN, TROUGHon 023 VANCOMYCIN (UG/ML) IN SER/PLAS - TROUGH 6.1 ug/mL Normal 5.0-20.0 [facility] Comment on above: Order Comment: Plesavita e collect the trough at least one hour before the 0800 dose due Performed By: #### L [id number] ####[facility] ([facility])[address] [place] [address] 30on 09-21-2023 30 Normal [facility] 30 [facility] 30 [facility] ANTI-XA (HEPARIN LEVEL)on HEPARIN UNFRACTIONATED (U/ML) IN PPP BY CHROMOGENIC METHOD 0.18 IU/mL Low 0.3-0.7 [facility] Comment on above: Order Comment: Check anti-Xa level every 6 hours while on heparin infusion, or per protocol. Result Comment: Masha roxaban and Apixaban will interfere with the anti Xa assay used to monitor UFH and LMWH. Performed By: #### L [id number] ####[facility] ([facility])[address] [place] [address] HEPARIN UNFRACTIONATED (U/ML) IN PPP BY CHROMOGENIC METHOD 0.14 IU/mL Invalid Interpretation Code 0.3-0.7 [facility] Comment on above: Order Comment: Check anti-Xa level every 6 hours while on heparin infusion, or per protocol. Result Comment: Masha roxaban and Apixaban will interfere with the anti Xa assay used to monitor UFH and LMWH. Performed By: #### L [id number] ####[facility] ([facility])[address] [place] [address] HEPARIN UNFRACTIONATED (U/ML) IN PPP BY CHROMOGENIC METHOD <0.10 Invalid Interpretation Code 0.3-0.7 [facility] Comment on above: Result Comment: Gays roxaban and Apixaban will interfere with the anti Xa assay used to monitor UFH and LMWH. Performed By: #### L [id number] ####[facility] ([facility])[address] [place] [address] APTTon 09-21-2023 ACTIVATED PARTIAL THROMBOPLASTIN TIME IN PPP BY COAGULATION ASSAY 35.8 Seconds High 25.0-35.0 [facility] Comment on above: Order Comment: Basel ine aPTT before initiating heparin infusion. Result Comment: Clin ical significance of the APTT is questionable in the presence of heparin. Performed By: #### L [id number] ####[facility] ([facility])[address] [place] [address] BASIC METABOLIC PANELon 12-1 Anion gap [Moles/Vol] 12 mmol/L Normal 7-20 [facility] Comment on above: Performed By: #### L [id number] ####[facility] ([facility])[address] [place] [address] Calcium [Mass/Vol] 7.9 mg/dL Low 8.6-10.3 [facility] Comment on above: Performed By: #### L [id number] ####[facility] ([facility])[address] [place] [address] Chloride [Moles/Vol] 100 mmol/L Normal 98-107 [facility] Comment on above: Performed By: #### L [id number] ####[facility] ([facility])[address] [facility] [address] CO2 [Moles/Vol] 23 mmol/L Normal 21-[address] [facility] Comment on above: Performed By: #### L [id number] ####[facility] ([facility])[address] [facility] [address] Creatinine [Mass/Vol] 0.61 mg/dL Low 0.70-1.30 [facility] Comment on above: Performed By: #### L [id number] ####[facility] ([facility])[address] [facility] [address] GLOMERULAR FILTRATION RATE ML/MIN/1.73 SQ M.PREDICTED 99.5 mL/min/1.73m*2 Normal >60.0 [facility] Comment on above: Result Comment: [facility]???s estimated glomerular filtration rate (eGFR) will [...] of individuals. Performed By: #### L [id number] ####[facility] ([facility])[address] [place] [address] Glucose [Mass/Vol] 246 mg/dL High 70-100 [facility] Comment on above: Performed By: #### L [id number] ####[facility] ([facility])[address] [place] [address] Potassium [Moles/Vol] 3.5 mmol/L Normal 3.5-5.1 [facility] Comment on above: Performed By: #### L [id number] ####[facility] ([facility])[address] [place] [address] Sodium [Moles/Vol] 131 mmol/L Low 136-145 [facility] Comment on above: Performed By: #### L [id number] ####[facility] ([facility])[address] [place] [address] Urea nitrogen [Mass/Vol] 15 mg/dL Normal 7-25 [facility] Comment on above: Performed By: #### L [id number] ####[facility] ([facility])[address] [place] [address] UREA NITROGEN/CREATININE (MASS RATIO) IN SER/PLAS 24.6 Normal [facility] Comment on above: Performed By: #### L [id number] ####[facility] ([facility])[address] [place] [address] Anion gap [Moles/Vol] 8 mmol/L Normal 7-20 [facility] Comment on above: Performed By: #### L [id number] ####[facility] ([facility])[address] [place] [address] Calcium [Mass/Vol] 8.5 mg/dL Low 8.6-10.3 [facility] Comment on above: Performed By: #### L [id number] ####[facility] ([facility])[address] [place] [address] Chloride [Moles/Vol] 101 mmol/L Normal 98-107 [facility] Comment on above: Performed By: #### L [id number] ####[facility] ([facility])[address] [place] [address] CO2 [Moles/Vol] 28 mmol/L Normal 21-[address] [facility] Comment on above: Performed By: #### L [id number] ####[facility] ([facility])[address] [place] [address] Creatinine [Mass/Vol] 0.49 mg/dL Low 0.70-1.30 [facility] Comment on above: Performed By: #### L [id number] ####[facility] ([facility])[address] [place] [address] GLOMERULAR FILTRATION RATE ML/MIN/1.73 SQ M.PREDICTED 106.4 mL/min/1.73m*2 Normal >60.0 [facility] Comment on above: Result Comment: [facility]???s estimated glomerular filtration rate (eGFR) will [...] of individuals. Performed By: #### L [id number] ####[facility] ([facility])[address] [place] [address] Glucose [Mass/Vol] 113 mg/dL High 70-100 [facility] Comment on above: Performed By: #### L [id number] ####[facility] ([facility])[address] [place] [address] Potassium [Moles/Vol] 3.9 mmol/L Normal 3.5-5.1 [facility] Comment on above: Performed By: #### L [id number] ####[facility] ([facility])[address] [place] [address] Sodium [Moles/Vol] 133 mmol/L Low 136-145 [facility] Comment on above: Performed By: #### L [id number] ####[facility] ([facility])[address] [place] [address] Urea nitrogen [Mass/Vol] 13 mg/dL Normal 7-25 [facility] Comment on above: Performed By: #### L [id number] ####[facility] ([facility])[address] [place] [address] UREA NITROGEN/CREATININE (MASS RATIO) IN SER/PLAS 26.5 Normal [facility] Comment on above: Performed By: #### L [id number] ####[facility] ([facility])[address] [place] [address] CBC WITH AUTO DIFFERENTIALon 09-21-2023 Basophils (Bld) [#/Vol] 0.01 10*3/uL Normal 0.00-0.20 [facility] Comment on above: Performed By: #### L [id number] ####[facility] ([facility])[address] [place] [address] Basophils/100 WBC (Bld) 0.2 % Normal 0.0-1.0 [facility] Comment on above: Performed By: #### L [id number] ####[facility] ([facility])[address] [place] [address] Eosinophils (Bld) [#/Vol] 0.01 10*3/uL Normal 0.00-0.50 [facility] Comment on above: Performed By: #### L [id number] ####[facility] ([facility])[address] [place] [address] Eosinophils/100 WBC (Bld) 0.2 % Normal 0.0-6.0 [facility] Comment on above: Performed By: #### L [id number] ####[facility] ([facility])[address] [place] [address] Erythrocyte distribution width (RBC) [Ratio] 18.0 % High 11.5-15.0 [facility] Comment on above: Performed By: #### L [id number] ####[facility] ([facility])[address] [place] [address] ERYTHROCYTE MEAN CORPUSCULAR HEMOGLOBIN CONCENTRATION (G/DL) BY AUTOMATED 31.8 g/dL Low 32.0-35.0 [facility] Comment on above: Performed By: #### L [id number] ####[facility] ([facility])[address] [place] [address] Hematocrit (Bld) [Volume fraction] 31.8 % Low 39.0-55.0 [facility] Comment on above: Performed By: #### L [id number] ####[facility] ([facility])[address] [place] [address] Hemoglobin (Bld) [Mass/Vol] 10.1 g/dL Low 13.0-17.0 [facility] Comment on above: Performed By: #### L [id number] ####[facility] ([facility])[address] [place] [address] Immature granulocytes (Bld) [#/Vol] 0.03 10*3/uL Normal 0.00-0.20 [facility] Comment on above: Performed By: #### L [id number] ####[facility] ([facility])[address] [place] [address] Immature granulocytes/100 WBC (Bld) 0.5 % Normal 0.0-1.0 [facility] Comment on above: Performed By: #### L [id number] ####[facility] ([facility])[address] [place] [address] Lymphocytes (Bld) [#/Vol] 0.43 10*3/uL Low 1.20-4.00 [facility] Comment on above: Performed By: #### L [id number] ####[facility] ([facility])[address] [place] [address] Lymphocytes/100 WBC (Bld) 7.4 % Low 20.0-45.0 [facility] Comment on above: Performed By: #### L [id number] ####[facility] ([facility])[address] [place] [address] MCH (RBC) [Entitic mass] 26.9 pg Low 27.0-33.0 [facility] Comment on above: Performed By: #### L [id number] ####[facility] ([facility])[address] [place] [address] MCV (RBC) [Entitic vol] 84.8 fL Normal 82.0-98.0 [facility] Comment on above: Performed By: #### L [id number] ####[facility] ([facility])[address] [place] [address] Monocytes (Bld) [#/Vol] 0.56 10*3/uL Normal 0.10-1.00 [facility] Comment on above: Performed By: #### L [id number] ####[facility] ([facility])[address] [place] [address] Monocytes/100 WBC (Bld) 9.6 % Normal 5.0-12.0 [facility] Comment on above: Performed By: #### L [id number] ####[facility] ([facility])[address] [place] [address] Neutrophils (Bld) [#/Vol] 4.81 10*3/uL Normal 1.60-7.60 [facility] Comment on above: Performed By: #### L [id number] ####[facility] ([facility])[address] [place] [address] Neutrophils/100 WBC (Bld) 82.1 % High 40.0-72.0 [facility] Comment on above: Performed By: #### L [id number] ####[facility] ([facility])[address] [place] [address] NRBC (PER 100 WBCS) BY AUTOMATED COUNT 0.0 % Normal 0 [facility] Comment on above: Performed By: #### L [id number] ####[facility] ([facility])[address] [place] [address] PLATELETS (10*3/UL) IN BLOOD AUTOMATED COUNT 122 10*3/uL Low 150-400 [facility] Comment on above: Performed By: #### L [id number] ####[facility] ([facility])[address] [place] [address] RBC (Bld) [#/Vol] 3.75 10*6/uL Low 4.20-5.70 [facility] Comment on above: Performed By: #### L [id number] ####[facility] ([facility])[address] [place] [address] WBC (Bld) [#/Vol] 5.85 10*3/uL Normal 4.00-10.60 [facility] Comment on above: Performed By: #### L [id number] ####[facility] ([facility])[address] [place] [address] CONSULTon 09-21-2023 CONSULT Normal [facility] HEMOGLOBIN AND HEMATOCRIT, B LOODon 09-21-2023 Hematocrit (Bld) [Volume fraction] 30.8 % Low 39.0-55.0 [facility] Comment on above: Performed By: #### L [id number] ####[facility] ([facility])[address] [place] [address] Hemoglobin (Bld) [Mass/Vol] 10.2 g/dL Low 13.0-17.0 [facility] Comment on above: Performed By: #### L [id number] ####[facility] ([facility])[address] [place] [address] MAGNESIUMon 09-21-2023 Magnesium [Mass/Vol] 2.0 mg/dL Normal 1.9-2.7 [facility] Comment on above: Performed By: #### L [id number] ####[facility] ([facility])[address] [place] [address] Magnesium [Mass/Vol] 1.5 mg/dL Low 1.9-2.7 [facility] Comment on above: Performed By: #### L [id number] ####[facility] ([facility])[address] [place] [address] PHOSPHORUSon 09-21-2023 Magnesium [Mass/Vol] 3.0 mg/dL Normal 2.5-5.0 [facility] Comment on above: Performed By: #### L [id number] ####[facility] ([facility])[address] [place] [address] PLATELET COUNTon 09-21-2023 PLATELETS (10*3/UL) IN BLOOD AUTOMATED COUNT 144 10*3/uL Low 150-400 [facility] Comment on above: Performed By: #### L [id number] ####[facility] ([facility])[address] [place] [address] POCT GLUCOSE METER UNSOLICIT ED RESULTSon 09-21-2023 Glucose [Mass/Vol] 154 mg/dL High 70-105 [facility] Comment on above: Order Comment: Waive d Testing in the ED is performed under the ED CLIA certificate #[id number]. Result Comment: [email or web address] Performed By: #### L [id number] ####[facility] ([facility])[address] [place] [address] Glucose [Mass/Vol] 217 mg/dL High 70-105 [facility] Comment on above: Order Comment: Waive d Testing in the ED is performed under the ED CLIA certificate #[id number]. Result Comment: [email or web address] Performed By: #### L [id number] ####[facility] ([facility])[address] [place] [address] Glucose [Mass/Vol] 105 mg/dL Normal 70-105 [facility] Comment on above: Order Comment: Waive d Testing in the ED is performed under the ED CLIA certificate #[id number]. Result Comment: [email or web address] Performed By: #### L [id number] ####[facility] ([facility])[address] [place] [address] Glucose [Mass/Vol] 108 mg/dL High 70-105 [facility] Comment on above: Order Comment: Waive d Testing in the ED is performed under the ED CLIA certificate #[id number]. Result Comment: [email or web address] Performed By: #### L [id number] ####[facility] ([facility])[address] [place] [address] VANCOMYCIN, PEAKon 3 VANCOMYCIN (UG/ML) IN SER/PLAS - PEAK 12.1 ug/mL Low 20.0-50.0 [facility] Comment on above: Order Comment: Les meléndez collect the peak at least 1 hour after the infusion has been completed Performed By: #### L [id number] ####[facility] ([facility])[address] [place] [address] [id number] 09-20-2023 [id number] Normal [facility] 30on 09-20-2023 30 The patient is Moderately Stable - Low risk of patient condition declining or worsening The patient's goals for the shift include comfort, safety The clinical goals for the shift include comfort,safety Normal [facility] ANESon 09-20-2023 ANES Normal [facility] BASIC METABOLIC PANELon 09-09 Anion gap [Moles/Vol] 9 mmol/L Normal 7-20 [facility] Comment on above: Performed By: #### L [id number] ####[facility] ([facility])[address] [place] [address] Calcium [Mass/Vol] 8.4 mg/dL Low 8.6-10.3 [facility] Comment on above: Performed By: #### L [id number] ####[facility] ([facility])[address] [place] [address] Chloride [Moles/Vol] 100 mmol/L Normal 98-107 [facility] Comment on above: Performed By: #### L [id number] ####[facility] ([facility])[address] [place] [address] CO2 [Moles/Vol] 27 mmol/L Normal 21-[address] [facility] Comment on above: Performed By: #### L [id number] ####[facility] ([facility])[address] [place] [address] Creatinine [Mass/Vol] 0.51 mg/dL Low 0.70-1.30 [facility] Comment on above: Performed By: #### L [id number] ####[facility] ([facility])[address] [place] [address] GLOMERULAR FILTRATION RATE ML/MIN/1.73 SQ M.PREDICTED 105.1 mL/min/1.73m*2 Normal >60.0 [facility] Comment on above: Result Comment: [facility]???s estimated glomerular filtration rate (eGFR) will [...] of individuals. Performed By: #### L [id number] ####[facility] ([facility])[address] [place] [address] Glucose [Mass/Vol] 117 mg/dL High 70-100 [facility] Comment on above: Performed By: #### L [id number] ####[facility] ([facility])[address] [place] [address] Potassium [Moles/Vol] 3.3 mmol/L Low 3.5-5.1 [facility] Comment on above: Performed By: #### L [id number] ####[facility] ([facility])[address] [place] [address] Sodium [Moles/Vol] 133 mmol/L Low 136-145 [facility] Comment on above: Performed By: #### L [id number] ####[facility] ([facility])[address] [place] [address] Urea nitrogen [Mass/Vol] 14 mg/dL Normal 7-25 [facility] Comment on above: Performed By: #### L [id number] ####[facility] ([facility])[address] [place] [address] UREA NITROGEN/CREATININE (MASS RATIO) IN SER/PLAS 27.5 Normal [facility] Comment on above: Performed By: #### L [id number] ####[facility] ([facility])[address] [place] [address] Anion gap [Moles/Vol] 11 mmol/L Normal 7-20 [facility] Comment on above: Performed By: #### L [id number] ####[facility] ([facility])[address] [place] [address] Calcium [Mass/Vol] 9.2 mg/dL Normal 8.6-10.3 [facility] Comment on above: Performed By: #### L [id number] ####[facility] ([facility])[address] [place] [address] Chloride [Moles/Vol] 102 mmol/L Normal 98-107 [facility] Comment on above: Performed By: #### L [id number] ####[facility] ([facility])[address] [place] [address] CO2 [Moles/Vol] 25 mmol/L Normal 21-[address] [facility] Comment on above: Performed By: #### L [id number] ####[facility] ([facility])[address] [place] [address] Creatinine [Mass/Vol] 0.53 mg/dL Low 0.70-1.30 [facility] Comment on above: Performed By: #### L [id number] ####[facility] ([facility])[address] [place] [address] GLOMERULAR FILTRATION RATE ML/MIN/1.73 SQ M.PREDICTED 103.9 mL/min/1.73m*2 Normal >60.0 [facility] Comment on above: Result Comment: [facility]???s estimated glomerular filtration rate (eGFR) will [...] of individuals. Performed By: #### L [id number] ####[facility] ([facility])[address] [place] [place] [address] Glucose [Mass/Vol] 93 mg/dL Normal 70-100 [facility] Comment on above: Performed By: #### L [id number] ####[facility] ([facility])[address] [place] [place] [address] Potassium [Moles/Vol] 3.7 mmol/L Normal 3.5-5.1 [facility] Comment on above: Performed By: #### L [id number] ####[facility] ([facility])[address] [place] [address] Sodium [Moles/Vol] 134 mmol/L Low 136-145 [facility] Comment on above: Performed By: #### L [id number] ####[facility] ([facility])[address] [place] [address] Urea nitrogen [Mass/Vol] 18 mg/dL Normal 7-25 [facility] Comment on above: Performed By: #### L [id number] ####[facility] ([facility])[address] [place] [address] UREA NITROGEN/CREATININE (MASS RATIO) IN SER/PLAS 34.0 Normal [facility] Comment on above: Performed By: #### L [id number] ####[facility] ([facility])[address] [place] [address] CBCon 09-20-2023 Erythrocyte distribution width (RBC) [Ratio] 18.0 % High 11.5-15.0 [facility] Comment on above: Performed By: #### L [id number] ####[facility] (BEAKER)[address] [place] [address] ERYTHROCYTE MEAN CORPUSCULAR HEMOGLOBIN CONCENTRATION (G/DL) BY AUTOMATED 31.9 g/dL Low 32.0-35.0 [facility] Comment on above: Performed By: #### L [id number] ####[facility] ([facility] [place] [address] Hematocrit (Bld) [Volume fraction] 33.5 % Low 39.0-55.0 [facility] Comment on above: Performed By: #### L [id number] ####[facility] (BEAKER)[address] [place] [address] Hemoglobin (Bld) [Mass/Vol] 10.7 g/dL Low 13.0-17.0 [facility] Comment on above: Performed By: #### L [id number] ####[facility] (BEAKER)[address] [place] [address] MCH (RBC) [Entitic mass] 27.1 pg Normal 27.0-33.0 [facility] Comment on above: Performed By: #### L [id number] ####[facility] (BEAKER)[address] [place] [address] MCV (RBC) [Entitic vol] 84.8 fL Normal 82.0-98.0 [facility] Comment on above: Performed By: #### L [id number] ####[facility] (BEAKER)[address] [place] [address] PLATELETS (10*3/UL) IN BLOOD AUTOMATED COUNT 142 10*3/uL Low 150-400 [facility] Comment on above: Performed By: #### L [id number] ####[facility] (BEAKER)[address] [place] [address] RBC (Bld) [#/Vol] 3.95 10*6/uL Low 4.20-5.70 [facility] Comment on above: Performed By: #### L [id number] ####[facility] (BEAKER)[address] [place] [address] WBC (Bld) [#/Vol] 8.35 10*3/uL Normal 4.00-10.60 [facility] Comment on above: Performed By: #### L [id number] ####[facility] ([facility])[address] [place] [address] CBC WITH AUTO DIFFERENTIALon 09-20-2023 Basophils (Bld) [#/Vol] 0.00 10*3/uL Normal 0.00-0.20 [facility] Comment on above: Performed By: #### L [id number] ####[facility] ([facility])[address] [place] [address] Basophils/100 WBC (Bld) 0.0 % Normal 0.0-1.0 [facility] Comment on above: Performed By: #### L [id number] ####[facility] (BEAKER)[address] [place] [address] Eosinophils (Bld) [#/Vol] 0.00 10*3/uL Normal 0.00-0.50 [facility] Comment on above: Performed By: #### L [id number] ####[facility] (BEAKER)[address] [place] [address] Eosinophils/100 WBC (Bld) 0.0 % Normal 0.0-6.0 [facility] Comment on above: Performed By: #### L [id number] ####[facility] (BEAKER)[address] [place] [address] Erythrocyte distribution width (RBC) [Ratio] 17.4 % High 11.5-15.0 [facility] Comment on above: Performed By: #### L [id number] ####[facility] (BEAKER)[address] [place] [address] ERYTHROCYTE MEAN CORPUSCULAR HEMOGLOBIN CONCENTRATION (G/DL) BY AUTOMATED 32.1 g/dL Normal 32.0-35.0 [facility] Comment on above: Performed By: #### L [id number] ####[facility] (BEAKER)[address] [place] [address] Hematocrit (Bld) [Volume fraction] 36.5 % Low 39.0-55.0 [facility] Comment on above: Performed By: #### L [id number] ####[facility] (BEAKER)[address] [place] [address] Hemoglobin (Bld) [Mass/Vol] 11.7 g/dL Low 13.0-17.0 [facility] Comment on above: Performed By: #### L [id number] ####[facility] (BEAKER)[address] [place] [address] Immature granulocytes (Bld) [#/Vol] 0.03 10*3/uL Normal 0.00-0.20 [facility] Comment on above: Performed By: #### L [id number] ####[facility] (BEAKER)[address] [place] [address] Immature granulocytes/100 WBC (Bld) 0.4 % Normal 0.0-1.0 [facility] Comment on above: Performed By: #### L [id number] ####[facility] (BEAKER)[address] [place] [address] Lymphocytes (Bld) [#/Vol] 0.37 10*3/uL Low 1.20-4.00 [facility] Comment on above: Performed By: #### L [id number] ####[facility] (BEAKER)[address] [place] [address] Lymphocytes/100 WBC (Bld) 4.9 % Low 20.0-45.0 [facility] Comment on above: Performed By: #### L [id number] ####[facility] (BEAKER)[address] [place] [address] MCH (RBC) [Entitic mass] 27.4 pg Normal 27.0-33.0 [facility] Comment on above: Performed By: #### L [id number] ####[facility] (BEAKER)[address] [place] [address] MCV (RBC) [Entitic vol] 85.5 fL Normal 82.0-98.0 [facility] Comment on above: Performed By: #### L [id number] ####[facility] ([facility])[address] [place] [address] Monocytes (Bld) [#/Vol] 0.48 10*3/uL Normal 0.10-1.00 [facility] Comment on above: Performed By: #### L [id number] ####[facility] ([facility])[address] [place] [address] Monocytes/100 WBC (Bld) 6.3 % Normal 5.0-12.0 [facility] Comment on above: Performed By: #### L [id number] ####[facility] ([facility])[address] [place] [address] Neutrophils (Bld) [#/Vol] 6.73 10*3/uL Normal 1.60-7.60 [facility] Comment on above: Performed By: #### L [id number] ####[facility] (BEAKER)[address] [place] [address] Neutrophils/100 WBC (Bld) 88.4 % High 40.0-72.0 [facility] Comment on above: Performed By: #### L [id number] ####[facility] (BEAKER)[address] [place] [address] NRBC (PER 100 WBCS) BY AUTOMATED COUNT 0.0 % Normal 0 [facility] Comment on above: Performed By: #### L [id number] ####[facility] (BEAKER)[address] [place] [address] PLATELETS (10*3/UL) IN BLOOD AUTOMATED COUNT 122 10*3/uL Low 150-400 [facility] Comment on above: Performed By: #### L [id number] ####[facility] ([facility])[address] [place] [address] RBC (Bld) [#/Vol] 4.27 10*6/uL Normal 4.20-5.70 [facility] Comment on above: Performed By: #### L [id number] ####[facility] ([facility])[address] [place] [address] WBC (Bld) [#/Vol] 7.61 10*3/uL Normal 4.00-10.60 [facility] Comment on above: Performed By: #### L [id number] ####[facility] ([facility])[address] [place] [address] CONSULTon 09-20-2023 CONSULT Normal [facility] CONSULT Normal [facility] DEVICE CULTUREon 09-20-2023 Bacteria identified Cx Nom (Unsp spec) No growth at 3 days [facility] Comment on above: Order Comment: Pre-o p diagnosis:Peripheral artery disease (CMS/HCC) [I73.9] Performed By: #### D EVICE CULTURE ####[facility] ([facility])[address] [place] [address] Bacteria identified Cx Nom (Unsp spec) No growth at 3 days [facility] Comment on above: Order Comment: Pre-o p diagnosis:Peripheral artery disease (CMS/HCC) [I73.9] Performed By: #### D EVICE CULTURE ####[facility] ([facility])[address] [place] [address] MAGNESIUMon 09-20-2023 Magnesium [Mass/Vol] 1.5 mg/dL Low 1.9-2.7 [facility] Comment on above: Performed By: #### L [id number] ####[facility] ([facility])[address] [place] [address] Magnesium [Mass/Vol] 1.9 mg/dL Normal 1.9-2.7 [facility] Comment on above: Performed By: #### L [id number] ####[facility] (BEAKER)[address] [place] [address] NURSNOTEon 09-20-2023 NURSNOTE Normal [facility] OPNOTEon 09-20-2023 OPNOTE Normal [facility] PHOSPHORUSon 09-20-2023 Magnesium [Mass/Vol] 2.9 mg/dL Normal 2.5-5.0 [facility] Comment on above: Performed By: #### L [id number] ####[facility] (BEAKER)[address] [place] [address] Magnesium [Mass/Vol] 3.0 mg/dL Normal 2.5-5.0 [facility] Comment on above: Performed By: #### L [id number] ####[facility] (BEAKER)[address] [place] [address] POCT ACTIVATED CLOTTING TIME UNSOLICITED RESULTSon 09-20-2023 POC ACTIVATED CLOTTING TIME 154 sec High 82-152 [facility] Comment on above: Performed By: #### L [id number] ####[facility] (BEAKER)[address] [place] [address] POC ACTIVATED CLOTTING TIME 199 sec High 82-152 [facility] Comment on above: Performed By: #### L [id number] ####[facility] (BEAKER)[address] [place] [address] POC ACTIVATED CLOTTING TIME 222 sec High 82-152 [facility] Comment on above: Performed By: #### L [id number] ####[facility] (BEAKER)[address] [place] [address] POC ACTIVATED CLOTTING TIME 154 sec High 82-152 [facility] Comment on above: Performed By: #### L [id number] ####[facility] (BEAKER)[address] [place] [address] POCT GLUCOSE METER UNSOLICIT ED RESULTSon 09-20-2023 Glucose [Mass/Vol] 156 mg/dL High 70-105 [facility] Comment on above: Order Comment: Waive d Testing in the ED is performed under the ED CLIA certificate #[id number]. Result Comment: [email or web address] orc Performed By: #### L [id number] ####[facility] ([facility])[address] [place] [address] Glucose [Mass/Vol] 105 mg/dL Normal 70-105 [facility] Comment on above: Order Comment: Waive d Testing in the ED is performed under the ED CLIA certificate #[id number]. Result Comment: [email or web address] Performed By: #### L [id number] ####[facility] ([facility])[address] [place] [address] POCT PERFUSION PANEL UNSOLIC ITED RESULTSon 09-20-2023 CO2 [Moles/Vol] 28.0 mmol/L Normal 21.0-29.0 [facility] Comment on above: Performed By: #### L [id number] ####[facility] ([facility])[address] [place] [address] Glucose [Mass/Vol] 152 mg/dL High 70-105 [facility] Comment on above: Performed By: #### L [id number] ####[facility] ([facility])[address] [place] [address] HCO3 (Bld) [Moles/Vol] 27.1 mmol/L Normal 23.0-28.0 [facility] Comment on above: Performed By: #### L [id number] ####[facility] (BEAKER)[address] [place] [address] Hematocrit (Bld) [Volume fraction] 32 % Low 38-51 [facility] Comment on above: Performed By: #### L [id number] ####[facility] (BEAKER)[address] [place] [address] Hemoglobin (Bld) [Mass/Vol] 10.9 g/dL Low 12.0-17.0 [facility] Comment on above: Performed By: #### L [id number] ####[facility] (BEAKER)[address] [place] [address] POCT BASE EXCESS 3.0 mmol/L Normal -2.0-3.0 [facility] Comment on above: Performed By: #### L [id number] ####[facility] ([facility])[address] [place] [address] POCT IONIZED CALCIUM 1.27 mmol/L Normal 1.12-1.32 [facility] Comment on above: Performed By: #### L [id number] ####[facility] ([facility])[address] [place] [address] POCT PCO2 40.5 mmHg Low 41.0-51.0 [facility] Comment on above: Performed By: #### L [id number] ####[facility] ([facility])[address] [place] [address] POCT PH 7.43 High 7.31-7.41 [facility] Comment on above: Performed By: #### L [id number] ####[facility] ([facility])[address] [place] [address] POCT PO2 280 mmHg High 80-105 [facility] Comment on above: Performed By: #### L [id number] ####[facility] ([facility])[address] [place] [address] POCT SO2 100 % High 95-98 [facility] Comment on above: Performed By: #### L [id number] ####[facility] ([facility])[address] [place] [address] Potassium [Moles/Vol] 3.0 mmol/L Low 3.5-4.9 [facility] Comment on above: Performed By: #### L [id number] ####[facility] ([facility])[address] [place] [address] Sodium [Moles/Vol] 135 mmol/L Low 138.0-146.0 [facility] Comment on above: Performed By: #### L [id number] ####[facility] (BEAKER)[address] [place] [address] CO2 [Moles/Vol] 29.0 mmol/L Normal 21.0-29.0 [facility] Comment on above: Performed By: #### L [id number] ####[facility] (BEAKER)[address] [place] [address] Glucose [Mass/Vol] 122 mg/dL High 70-105 [facility] Comment on above: Performed By: #### L [id number] ####[facility] (BEAKER)[address] [place] [address] HCO3 (Bld) [Moles/Vol] 27.9 mmol/L Normal 23.0-28.0 [facility] Comment on above: Performed By: #### L [id number] ####[facility] (BEAKER)[address] [place] [address] Hematocrit (Bld) [Volume fraction] 34 % Low 38-51 [facility] Comment on above: Performed By: #### L [id number] ####[facility] (BEAKER)[address] [place] [address] Hemoglobin (Bld) [Mass/Vol] 11.6 g/dL Low 12.0-17.0 [facility] Comment on above: Performed By: #### L [id number] ####[facility] (BEAKER)[address] [place] [address] POCT BASE EXCESS 4.0 mmol/L High -2.0-3.0 [facility] Comment on above: Performed By: #### L [id number] ####[facility] (BEAKER)[address] [place] [address] POCT IONIZED CALCIUM 1.11 mmol/L Low 1.12-1.32 [facility] Comment on above: Performed By: #### L [id number] ####[facility] (BEAKER)[address] [place] [address] POCT PCO2 38.6 mmHg Low 41.0-51.0 [facility] Comment on above: Performed By: #### L [id number] ####[facility] (BEAKER)[address] [address] POCT PH 7.47 High 7.31-7.41 [facility] Comment on above: Performed By: #### L [id number] ####[facility] (BEAKER)[address] [address] POCT PO2 284 mmHg High 80-105 [facility] Comment on above: Performed By: #### L [id number] ####[facility] ([facility])[address] [address] POCT SO2 100 % High 95-98 [facility] Comment on above: Performed By: #### L [id number] ####[facility] ([facility])[address] [place] [address] Potassium [Moles/Vol] 3.1 mmol/L Low 3.5-4.9 [facility] Comment on above: Performed By: #### L [id number] ####[facility] (BEAKER)[address] [place] [address] Sodium [Moles/Vol] 137 mmol/L Low 138.0-146.0 [facility] Comment on above: Performed By: #### L [id number] ####[facility] (BEAKER)[address] [place] [address] PROTIME-INRon 09-20-2023 INR IN PPP BY COAGULATION ASSAY 1.17 High 0.90-1.10 [facility] Comment on above: Result Comment: ACCC [...] CHEST 1995;[id number]. Performed By: #### L [id number] ####[facility] ([facility])[address] [place] [address] PROTHROMBIN TIME (PT) IN PPP BY COAGULATION ASSAY 14.9 Seconds High 12.3-14.8 [facility] Comment on above: Performed By: #### L [id number] ####[facility] ([facility])[address] [place] [address] TISSUE CULTUREon 09-20-2023 GRAM STAIN RESULT Normal [facility] Comment on above: Order Comment: Pre-o p diagnosis:Peripheral artery disease (CMS/HCC) [I73.9]Rare Growth Skin Rita Result Comment: Many Polymorphonuclear leukocytesNo organisms seen Performed By: #### L [id number] ####[facility] ([facility])[address] [place] [address] 30on 09-19-2023 30 Normal [facility] ANESon 09-19-2023 ANES Normal [facility] BASIC METABOLIC PANELon 09-09 Anion gap [Moles/Vol] 7 mmol/L Normal 7-20 [facility] Comment on above: Performed By: #### L [id number] ####[facility] ([facility])[address] [place] [address] Calcium [Mass/Vol] 8.8 mg/dL Normal 8.6-10.3 [facility] Comment on above: Performed By: #### L [id number] ####[facility] ([facility])[address] [place] [address] Chloride [Moles/Vol] 103 mmol/L Normal 98-107 [facility] Comment on above: Performed By: #### L [id number] ####[facility] ([facility])[address] [place] [address] CO2 [Moles/Vol] 28 mmol/L Normal 21-[address] [facility] Comment on above: Performed By: #### L [id number] ####[facility] ([facility])[address] [place] [address] Creatinine [Mass/Vol] 0.46 mg/dL Low 0.70-1.30 [facility] Comment on above: Performed By: #### L [id number] ####[facility] ([facility])[address] [place] [address] GLOMERULAR FILTRATION RATE ML/MIN/1.73 SQ M.PREDICTED 108.4 mL/min/1.73m*2 Normal >60.0 [facility] Comment on above: Result Comment: [facility]???s estimated glomerular filtration rate (eGFR) will [...] of individuals. Performed By: #### L [id number] ####[facility] ([facility])[address] [place] [address] Glucose [Mass/Vol] 166 mg/dL High 70-100 [facility] Comment on above: Performed By: #### L [id number] ####[facility] ([facility])[address] [place] [address] Potassium [Moles/Vol] 3.8 mmol/L Normal 3.5-5.1 [facility] Comment on above: Performed By: #### L [id number] ####[facility] (BEAKER)[address] [place] [address] Sodium [Moles/Vol] 134 mmol/L Low 136-145 [facility] Comment on above: Performed By: #### L [id number] ####[facility] ([facility])[address] [place] [address] Urea nitrogen [Mass/Vol] 18 mg/dL Normal 7-25 [facility] Comment on above: Performed By: #### L [id number] ####[facility] ([facility])[address] [place] [address] UREA NITROGEN/CREATININE (MASS RATIO) IN SER/PLAS 39.1 Normal [facility] Comment on above: Performed By: #### L [id number] ####[facility] ([facility])[address] [place] [address] CBC WITH AUTO DIFFERENTIALon 09-19-2023 Basophils (Bld) [#/Vol] 0.00 10*3/uL Normal 0.00-0.20 [facility] Comment on above: Performed By: #### L [id number] ####[facility] ([facility])[address] [place] [address] Basophils/100 WBC (Bld) 0.0 % Normal 0.0-1.0 [facility] Comment on above: Performed By: #### L [id number] ####[facility] (BEAKER)[address] [place] [address] Eosinophils (Bld) [#/Vol] 0.00 10*3/uL Normal 0.00-0.50 [facility] Comment on above: Performed By: #### L [id number] ####[facility] (BEAKER)[address] [place] [address] Eosinophils/100 WBC (Bld) 0.0 % Normal 0.0-6.0 [facility] Comment on above: Performed By: #### L [id number] ####[facility] (BEAKER)[address] [place] [address] Erythrocyte distribution width (RBC) [Ratio] 18.8 % High 11.5-15.0 [facility] Comment on above: Performed By: #### L [id number] ####[facility] (BEAKER)[address] [address] ERYTHROCYTE MEAN CORPUSCULAR HEMOGLOBIN CONCENTRATION (G/DL) BY AUTOMATED 32.5 g/dL Normal 32.0-35.0 [facility] Comment on above: Performed By: #### L [id number] ####[facility] (BEAKER)[address] [place] [address] Hematocrit (Bld) [Volume fraction] 24.9 % Low 39.0-55.0 [facility] Comment on above: Performed By: #### L [id number] ####[facility] (BEAKER)[address] [place] [address] Hemoglobin (Bld) [Mass/Vol] 8.1 g/dL Low 13.0-17.0 [facility] Comment on above: Performed By: #### L [id number] ####[facility] (BEAKER)[address] [place] [address] Immature granulocytes (Bld) [#/Vol] 0.02 10*3/uL Normal 0.00-0.20 [facility] Comment on above: Performed By: #### L [id number] ####[facility] (BEAKER)[address] [place] [address] Immature granulocytes/100 WBC (Bld) 0.4 % Normal 0.0-1.0 [facility] Comment on above: Performed By: #### L [id number] ####[facility] (BE[facility]ER)[address] [place] [address] Lymphocytes (Bld) [#/Vol] 0.14 10*3/uL Low 1.20-4.00 [facility] Comment on above: Performed By: #### L [id number] ####[facility] (BEAKER)[address] [place] [address] Lymphocytes/100 WBC (Bld) 2.7 % Low 20.0-45.0 [facility] Comment on above: Performed By: #### L [id number] ####[facility] (BEAKER)[address] [place] [address] MCH (RBC) [Entitic mass] 27.3 pg Normal 27.0-33.0 [facility] Comment on above: Performed By: #### L [id number] ####[facility] ([facility])[address] [place] [address] MCV (RBC) [Entitic vol] 83.8 fL Normal 82.0-98.0 [facility] Comment on above: Performed By: #### L [id number] ####[facility] ([facility])[address] [place] [address] Monocytes (Bld) [#/Vol] 0.09 10*3/uL Low 0.10-1.00 [facility] Comment on above: Performed By: #### L [id number] ####[facility] (BEAKER)[address] [place] [address] Monocytes/100 WBC (Bld) 1.8 % Low 5.0-12.0 [facility] Comment on above: Performed By: #### L [id number] ####[facility] (BEAKER)[address] [place] [address] Neutrophils (Bld) [#/Vol] 4.87 10*3/uL Normal 1.60-7.60 [facility] Comment on above: Performed By: #### L [id number] ####[facility] (BEAKER)[address] [place] [address] Neutrophils/100 WBC (Bld) 95.1 % High 40.0-72.0 [facility] Comment on above: Performed By: #### L [id number] ####[facility] (BE[facility]ER)[address] [place] [address] NRBC (PER 100 WBCS) BY AUTOMATED COUNT 0.0 % Normal 0 [facility] Comment on above: Performed By: #### L [id number] ####[facility] ([facility])[address] [place] [address] PLATELETS (10*3/UL) IN BLOOD AUTOMATED COUNT 105 10*3/uL Low 150-400 [facility] Comment on above: Performed By: #### L [id number] ####[facility] ([facility])[address] [place] [address] RBC (Bld) [#/Vol] 2.97 10*6/uL Low 4.20-5.70 [facility] Comment on above: Performed By: #### L [id number] ####[facility] ([facility])[address] [place] [address] WBC (Bld) [#/Vol] 5.12 10*3/uL Normal 4.00-10.60 [facility] Comment on above: Performed By: #### L [id number] ####[facility] ([facility])[address] [place] [address] MAGNESIUMon 09-19-2023 Magnesium [Mass/Vol] 1.7 mg/dL Low 1.9-2.7 [facility] Comment on above: Performed By: #### L [id number] ####[facility] ([facility])[address] [place] [address] MRSA/MSSA DNA NASALon 2022 MRSA DNA Negative Normal Negative [facility] Comment on above: Order Comment: Testi [...] preclude nasal colonization. Performed By: #### L [id number] ####[facility] ([facility])[address] [place] [address] MSSA DNA Negative Normal Negative [facility] Comment on above: Order Comment: Testi [...] preclude nasal colonization. Performed By: #### L [id number] ####[facility] ([facility])[address] [place] [place] [address] PHOSPHORUSon 09-19-2023 Magnesium [Mass/Vol] 3.1 mg/dL Normal 2.5-5.0 [facility] Comment on above: Performed By: #### L [id number] ####[facility] ([facility])[address] [place] [place] [address] POCT GLUCOSE METER UNSOLICIT ED RESULTSon 09-19-2023 Glucose [Mass/Vol] 244 mg/dL High 70-105 [facility] Comment on above: Order Comment: Waive d Testing in the ED is performed under the ED CLIA certificate #[id number]. Result Comment: [email or web address] Performed By: #### L [id number] ####[facility] ([facility])[address] [place] [place] [address] Glucose [Mass/Vol] 140 mg/dL High 70-105 [facility] Comment on above: Order Comment: Waive d Testing in the ED is performed under the ED CLIA certificate #[id number]. Result Comment: [email or web address] Performed By: #### L [id number] ####[facility] ([facility])[address] [place] [place] [address] Glucose [Mass/Vol] 192 mg/dL High 70-105 [facility] Comment on above: Order Comment: Waive d Testing in the ED is performed under the ED CLIA certificate #[id number]. Result Comment: elac umsky Performed By: #### L [id number] ####[facility] ([facility])[address] [place] [address] Glucose [Mass/Vol] 163 mg/dL High 70-105 [facility] Comment on above: Order Comment: Waive d Testing in the ED is performed under the ED CLIA certificate #[id number]. Result Comment: elac theodore Performed By: #### L [id number] ####[facility] ([facility])[address] [place] [address] TYPE AND SCREENon 09-19-2023 AB SCREEN Negative Normal [facility] Comment on above: Performed By: #### L [id number] ####[facility] BLOOD BANK, ABO group Nom (Bld) O Normal [facility] Comment on above: Performed By: #### L [id number] ####[facility] BLOOD BANK, RH TYPE IN BLOOD Positive Normal [facility] Comment on above: Performed By: #### L [id number] ####[facility] BLOOD BANK, 30on 09-18-2023 30 Normal [facility] APTTon 09-18-2023 ACTIVATED PARTIAL THROMBOPLASTIN TIME IN PPP BY COAGULATION ASSAY 35.0 Seconds Normal 25.0-35.0 [facility] Comment on above: Result Comment: Clin ical significance of the APTT is questionable in the presence of heparin. Performed By: #### L [id number] ####[facility] ([facility])[address] [place] [address] BASIC METABOLIC PANELon 09-09 Anion gap [Moles/Vol] 8 mmol/L Normal 7-20 [facility] Comment on above: Performed By: #### L [id number] ####[facility] ([facility])[address] [place] [address] Calcium [Mass/Vol] 8.4 mg/dL Low 8.6-10.3 [facility] Comment on above: Performed By: #### L [id number] ####[facility] ([facility])[address] [place] [address] Chloride [Moles/Vol] 99 mmol/L Normal 98-107 [facility] Comment on above: Performed By: #### L [id number] ####[facility] ([facility])[address] [place] [address] CO2 [Moles/Vol] 28 mmol/L Normal 21-[address] [facility] Comment on above: Performed By: #### L [id number] ####[facility] ([facility])[address] [place] [address] Creatinine [Mass/Vol] 0.52 mg/dL Low 0.70-1.30 [facility] Comment on above: Performed By: #### L [id number] ####[facility] ([facility])[address] [place] [address] GLOMERULAR FILTRATION RATE ML/MIN/1.73 SQ M.PREDICTED 104.5 mL/min/1.73m*2 Normal >60.0 [facility] Comment on above: Result Comment: [facility]???s estimated glomerular filtration rate (eGFR) will [...] of individuals. Performed By: #### L [id number] ####[facility] ([facility])[address] [place] [address] Glucose [Mass/Vol] 193 mg/dL High 70-100 [facility] Comment on above: Performed By: #### L [id number] ####[facility] ([facility])[address] [place] [address] Potassium [Moles/Vol] 3.7 mmol/L Normal 3.5-5.1 [facility] Comment on above: Performed By: #### L [id number] ####[facility] ([facility])[address] [place] [address] Sodium [Moles/Vol] 131 mmol/L Low 136-145 [facility] [place] Comment on above: Performed By: #### L [id number] ####[facility] ([facility])[address] [place] [address] Urea nitrogen [Mass/Vol] 19 mg/dL Normal 7-25 [facility] Comment on above: Performed By: #### L [id number] ####[facility] ([facility])[address] [place] [address] UREA NITROGEN/CREATININE (MASS RATIO) IN SER/PLAS 36.5 Normal [facility] Comment on above: Performed By: #### L [id number] ####[facility] ([facility])[address] [place] [address] CBC WITH AUTO DIFFERENTIALon 09-18-2023 Basophils (Bld) [#/Vol] 0.00 10*3/uL Normal 0.00-0.20 [facility] Comment on above: Performed By: #### L [id number] ####[facility] ([facility])[address] [place] [address] Basophils/100 WBC (Bld) 0.0 % Normal 0.0-1.0 [facility] Comment on above: Performed By: #### L [id number] ####[facility] ([facility])[address] [place] [address] Eosinophils (Bld) [#/Vol] 0.00 10*3/uL Normal 0.00-0.50 [facility] Comment on above: Performed By: #### L [id number] ####[facility] ([facility])[address] [place] [address] Eosinophils/100 WBC (Bld) 0.0 % Normal 0.0-6.0 [facility] Comment on above: Performed By: #### L [id number] ####[facility] ([facility])[address] [place] [address] Erythrocyte distribution width (RBC) [Ratio] 19.1 % High 11.5-15.0 [facility] Comment on above: Performed By: #### L [id number] ####[facility] ([facility])[address] [place] [address] ERYTHROCYTE MEAN CORPUSCULAR HEMOGLOBIN CONCENTRATION (G/DL) BY AUTOMATED 31.9 g/dL Low 32.0-35.0 [facility] Comment on above: Performed By: #### L [id number] ####[facility] ([facility])[address] [place] [address] Hematocrit (Bld) [Volume fraction] 25.4 % Low 39.0-55.0 [facility] Comment on above: Performed By: #### L [id number] ####[facility] ([facility])[address] [place] [address] Hemoglobin (Bld) [Mass/Vol] 8.1 g/dL Low 13.0-17.0 [facility] Comment on above: Performed By: #### L [id number] ####[facility] ([facility])[address] [place] [address] Immature granulocytes (Bld) [#/Vol] 0.03 10*3/uL Normal 0.00-0.20 [facility] Comment on above: Performed By: #### L [id number] ####[facility] ([facility])[address] [place] [address] Immature granulocytes/100 WBC (Bld) 0.3 % Normal 0.0-1.0 [facility] Comment on above: Performed By: #### L [id number] ####[facility] ([facility])[address] [place] [address] Lymphocytes (Bld) [#/Vol] 0.22 10*3/uL Low 1.20-4.00 [facility] Comment on above: Performed By: #### L [id number] ####[facility] ([facility])[address] [place] [address] Lymphocytes/100 WBC (Bld) 2.1 % Low 20.0-45.0 [facility] Comment on above: Performed By: #### L [id number] ####[facility] ([facility])[address] [place] [address] MCH (RBC) [Entitic mass] 26.8 pg Low 27.0-33.0 [facility] Comment on above: Performed By: #### L [id number] ####[facility] ([facility])[address] [place] [address] MCV (RBC) [Entitic vol] 84.1 fL Normal 82.0-98.0 [facility] Comment on above: Performed By: #### L [id number] ####[facility] ([facility])[address] [place] [address] Monocytes (Bld) [#/Vol] 0.12 10*3/uL Normal 0.10-1.00 [facility] Comment on above: Performed By: #### L [id number] ####[facility] ([facility])[address] [place] [address] Monocytes/100 WBC (Bld) 1.2 % Low 5.0-12.0 [facility] Comment on above: Performed By: #### L [id number] ####[facility] ([facility])[address], [place] [address] Neutrophils (Bld) [#/Vol] 9.88 10*3/uL High 1.60-7.60 [facility] Comment on above: Performed By: #### L [id number] ####[facility] ([facility])[address] [place] [address] Neutrophils/100 WBC (Bld) 96.4 % High 40.0-72.0 [facility] Comment on above: Performed By: #### L [id number] ####[facility] ([facility])[address] [place] [address] NRBC (PER 100 WBCS) BY AUTOMATED COUNT 0.0 % Normal 0 [facility] Comment on above: Performed By: #### L [id number] ####[facility] ([facility])[address] [place] [address] PLATELETS (10*3/UL) IN BLOOD AUTOMATED COUNT 125 10*3/uL Low 150-400 [facility] Comment on above: Performed By: #### L [id number] ####[facility] ([facility])[address] [place] [address] RBC (Bld) [#/Vol] 3.02 10*6/uL Low 4.20-5.70 [facility] Comment on above: Performed By: #### L [id number] ####[facility] ([facility])[address] [place] [address] WBC (Bld) [#/Vol] 10.25 10*3/uL Normal 4.00-10.60 [facility] Comment on above: Performed By: #### L [id number] ####[facility] ([facility])[address] [place] [address] CTA AORTA AND BILATERAL ILIO FEMORAL RUNOFF W AND/OR WO IV CONTRASTon 09-18-2023 CTA AORTA AND BILATERAL ILIOFEMORAL RUNOFF W AND/OR WO IV CONTRAST Normal [facility] CTA CHEST W AND/OR WO IV CON TRASTon 09-18-2023 CTA CHEST W AND/OR WO IV CONTRAST Normal [facility] EDNURSon 09-18-2023 EDNURS Normal [facility] EDPROVon 09-18-2023 EDPROV Invalid Interpretation Code [facility] HPon 09-18-2023 HP Normal [facility] LACTIC ACID WITH 4 HOUR REFL EXon 09-18-2023 LACTATE (MMOL/L) IN SER/PLAS 1.6 mmol/L Normal 0.5-2.2 [facility] Comment on above: Performed By: #### L [id number] ####[facility] ([facility])[address] [place] [address] MAGNESIUMon 09-18-2023 Magnesium [Mass/Vol] 1.6 mg/dL Low 1.9-2.7 [facility] Comment on above: Performed By: #### L [id number] ####[facility] ([facility])[address] [place] [address] PHOSPHORUSon 09-18-2023 Magnesium [Mass/Vol] 3.1 mg/dL Normal 2.5-5.0 [facility] Comment on above: Performed By: #### L [id number] ####[facility] ([facility])[address] [place] [address] POCT GLUCOSE METER UNSOLICIT ED RESULTSon 09-18-2023 Glucose [Mass/Vol] 228 mg/dL High 70-105 [facility] Comment on above: Order Comment: Waive d Testing in the ED is performed under the ED CLIA certificate #[id number]. Result Comment: mmye [email or web address] Performed By: #### L [id number] ####[facility] ([facility])[address] [place] [address] PROTIME-INRon 09-18-2023 INR IN PPP BY COAGULATION ASSAY 1.27 High 0.90-1.10 [facility] Comment on above: Result Comment: ACCC [...] CHEST 1995;108:231S-246S. Performed By: #### L [id number] ####[facility] ([facility])[address] [place] [address] PROTHROMBIN TIME (PT) IN PPP BY COAGULATION ASSAY 16.0 Seconds High 12.3-14.8 [facility] Comment on above: Performed By: #### L [id number] ####[facility] ([facility])[address] [place] [address] Follow-Upon 08-31-2023 Follow-Up Normal [facility] 36on 08-12-2023 36 Normal [facility] Telephoneon 08-12-2023 Telephone Normal [facility] Physician Referralon 023 Physician Referral [id number]#1.00TIF F [facility] Follow-Upon 06-20-2023 Follow-Up [facility] Follow-Upon 05-16-2023 Follow-Up [facility] Consent for Treatmenton 04-11 Consent for Treatment [id number]#1.00CD: 127 [facility] Heart and Vascular Office/Cl inic Noteon 05-09-2023 Heart and Vascular Office/Clinic Note [facility] Comment on above: Result Comment: Elec tronically Signed By: Vickey WISE, Erwin Evans\.br\Date and Time Signed: 05/09/23 09:55 EDT Consent for Anesthesiaon Consent for Anesthesia [id number]#1.00C D:127 [facility] IntraOperative Documentson 0 04-19-2023 IntraOperative Documents [id number]#1.00CD: 127 [facility] IntraOperative Documentson 0 04-15-2023 IntraOperative Documents [id number]#1.00CD :127 [facility] Operative Reporton Operative Report [facility] Comment on above: Result Comment: Elec tronically Signed By: Vickey WISE, Erwin Evans\.br\Date and Time Signed: 04/14/23 12:35 EDT Progress Note-Physicianon Progress Note-Physician Normal [facility] Comment on above: Result Comment: Elec tronically Signed By: MD Siri, Jose F Payan\.br\Date and Time Signed: 04/14/23 19:33 EDT Progress Note-Physician Normal F [facility] Comment on above: Result Comment: Elec tronically Signed By: MD Horner Ahmad F\.br\Date and Time Signed: 04/14/23 19:28 EDT Consent for Anesthesiaon Consent for Anesthesia [id number]#1.00C D:[address] [facility] Discharge Instructionson Discharge Instructions [id number]#1.00C D:[address] [facility] Main OR Intraoperative Recor don 04-13-2023 Main OR Intraoperative Record Normal [facility] Capillary Glucose POCon Glucose [Mass/Vol] 97 mg/dL Normal 55-99 [facility] Comment on above: Result Comment: Sayra feldman MeterNo Coverage Given Performed By: #### 2 [id number] ####[facility] [address] [place] [address] Consent for Procedure/Surger yon 04-11-2023 Consent for Procedure/Surgery [id number]#1.00CD :[address] [facility] Consent for Treatmenton Consent for Treatment [id number]#1.00CD: [address] [facility] Discharge Instructionson Discharge Instructions Normal [facility] Comment on above: Result Comment: Elec tronically Signed By: Rakesh GUARDADO, Karissa M\.br\Date and Time Signed: 04/11/23 15:05 EDT H&P Updateon 04-11-2023 H&P Update [id number]#1.00CD :[address] [facility] Main OR PACU I Recordon Main OR PACU I Record Normal [facility] Main OR Preoperative Recordo n 04-11-2023 Main OR Preoperative Record Normal [facility] Monitor Recordon 04-11-2023 Monitor Record [id number]#1.00CD :[address] [facility] PT & PTTon 04-11-2023 aPTT Coag (PPP) [Time] 38.1 second(s) High 25.1-36.5 [facility] Comment on above: Result Comment: Para [...] the same coagulation reagent and instrumentation as [facility]. Currently there are no coagulation studies available worldwide for children to 14 days, and no normal ranges. Heparin therapeutic range (represented by Anti-Factor Xa activity of 0.2 - 0.4 U/mL) corresponds to PTT of 56.6 - 109.0 sec. Performed By: #### 1 [id number] ####[facility] [place] [address] INR Coag (PPP) [Relative time] 1.2 {INR} Invalid Interpretation Code [facility] Comment on above: Result Comment: INR results are specifically intended to assess patients stabilized on long-term Anticoagulation therapy suggested INR?s ?Less Intensive Anticoagulation? 2.0 ? 3.0Conventional Range 3.0 ? 4.5 Performed By: #### 1 [id number] ####[facility] [address] [place] [address] PT Coag (PPP) [Time] 13.3 second(s) High 9.4-12.5 [facility] Comment on above: Result Comment: 15 [...] the same coagulation reagent and instrumentation as [facility]. Currently there are no coagulation studies available worldwide for children to 14 days, and no normal ranges. Performed By: #### 1 [id number] ####[facility] [address] [place] [address] Patient Education - Texton 0 04-11-2023 Patient Education - Text Normal [facility] BMPon 04-08-2023 Creatinine [Mass/Vol] 0.6 mg/dL Normal 0.5-1.3 [facility] Comment on above: Performed By: #### 2 277412, 9159047, 7191719, 5949326, 46593368, 23097411 ####[facility] [address] [place] [address] Urea nitrogen [Mass/Vol] 27 mg/dL High 5-21 [facility] Comment on above: Performed By: #### 2 178946, 9435174, 8636609, 6210919, 24790321, 41383132 ####[facility] [address] [place] [address] Urea nitrogen/Creatinine [Mass ratio] 45 No Units High 10-20 [facility] Comment on above: Performed By: #### 2 165726, 1314077, 0949207, 7154585, 70765886, 80572560 ####[facility] [address] [place] [address] Anion gap [Moles/Vol] 9 mmol/L Normal 6-16 [facility] Comment on above: Performed By: #### 2 771476, 9755258, 7704458, 5171936, 86906466, 74111109 ####[facility] [address] [facility] [address] Calcium [Mass/Vol] 8.5 mg/dL Low 8.9-11.1 [facility] Comment on above: Performed By: #### 2 197878, 0872106, 0711581, 2936710, 89007783, 71289700 ####[facility] [address] [place] [address] Chloride [Moles/Vol] 99 mmol/L Low 101-111 [facility] Comment on above: Performed By: #### 2 684042, 7172648, 7540808, 2676292, 85850718, 29032203 ####[facility] [address] [place] [address] CO2 [Moles/Vol] 28 mmol/L Normal 21-31 [facility] Comment on above: Performed By: #### 2 132145, 0224656, 8680099, 8487455, 01108602, 43816014 ####[facility] [address] [place] [address] Glucose [Mass/Vol] 163 mg/dL Normal 55-199 [facility] Comment on above: Result Comment: If t his glucose result represents a fasting glucose, interpretation should refer to the following reference range: 55-99 mg/dL Performed By: #### 2 023579, 1537517, 5823615, 7470819, 86592112, 56291447 ####[facility] [address] [place] [address] Potassium [Moles/Vol] 3.7 mmol/L Normal 3.5-5.3 [facility] Comment on above: Performed By: #### 2 619998, 0582924, 2321426, 1436775, 94578330, 34178284 ####[facility] [address] [place] [address] Sodium [Moles/Vol] 132 mmol/L Low 135-145 [facility] Comment on above: Performed By: #### 2 971446, 4153586, 8258713, 5811954, 18099248, 74577735 ####[facility] [address] [place] [address] CBC w/Indiceson 04-08-2023 Erythrocyte distribution width (RBC) [Ratio] 20.5 % High 10.9-14.2 [facility] Comment on above: Performed By: #### 2 707128, 1886677, 6054882, 7288864, 92912037, 85832668 ####[facility] [address] [place] [address] Hematocrit (Bld) [Volume fraction] 31.4 % Low 37.7-49.0 [facility] Comment on above: Performed By: #### 2 827692, 5914390, 0208505, 6472985, 89834060, 13570727 ####[facility] [address] [place] [address] Hemoglobin (Bld) [Mass/Vol] 10.2 g/dL Low 13.5-17.5 [facility] Comment on above: Performed By: #### 2 967932, 7755734, 1712854, 4472721, 79279084, 31049743 ####[facility] [address] [place] [address] MCH (RBC) [Entitic mass] 30.3 pg Normal 27.0-34.0 [facility] Comment on above: Performed By: #### 2 376498, 6853158, 6117204, 7246265, 43084504, 65616686 ####[facility] [address] [place] [address] MCHC (RBC) [Mass/Vol] 32.6 g/dL Normal 31.4-36.0 [facility] Comment on above: Performed By: #### 2 904835, 7794140, 9089922, 6028965, 40460950, 79862966 ####[facility] [address] [place] [address] MCV (RBC) [Entitic vol] 92.9 fL Normal 80.0-100.0 F [facility] Comment on above: Performed By: #### 2 806532, 9432715, 3721399, 7178612, 29887373, 19215186 ####[facility] [address] [place] [address] Platelet mean volume (Bld) [Entitic vol] 9.2 fL Normal 6.4-10.8 [facility] Comment on above: Performed By: #### 2 963200, 4371784, 2572165, 7174044, 23942988, 86563444 ####[facility] [address] [place] [address] Platelets (Bld) [#/Vol] 156.0 E9/L Normal 150.0-500.0 [facility] Comment on above: Performed By: #### 2 133882, 7747352, 7531596, 7095067, 03975080, 16822231 ####[facility] [address] [place] [address] RBC (Bld) [#/Vol] 3.4 E12/L Low 4.3-5.9 [facility] Comment on above: Performed By: #### 2 847195, 2928138, 2917030, 8813939, 45648237, 22922291 ####[facility] [address] [place] [address] WBC corrected for nucl RBC Auto (Bld) [#/Vol] 3.6 E9/L Low 4.0-11.0 [facility] Comment on above: Performed By: #### 2 381061, 5350804, 3162240, 2038823, 29895951, 13372189 ####[facility] [address] [place] [address] CHEMISTRYOrdered By: SYSTEM SYSTEM on 04-08-2023 Anion gap [Moles/Vol] 9 mmol/L Normal 6 - 16 mEq/L F [facility] Remisol Calcium [Mass/Vol] 8.5 mg/dL Low 8.9 [...] s High 9.4 - 1 2.5 second(s) [facility] Auto Coag Consent for Treatmenton 03-12 Consent for Treatment [id number]#1.00CD: [address] [facility] Formson 04-08-2023 Forms [id number]#1.00CD :[address] [facility] HEMATOLOGYOrdered By: Fabi Massey on 04-08-2023 [...] 3.6 E9/L Low 4.0 - 11.0 E9/L FT HemeAutoSS Magnesiumon 04-08-2023 Magnesium [Mass/Vol] 1.9 mg/dL Normal 1.3-2.4 [facility] Comment on above: Performed By: #### 2 630417, 2702145, 9087514, 2844907, 87792682, 41875089 ####[facility] [address] [place] [address] PT & PTTon 04-08-2023 aPTT Coag (PPP) [Time] 40.6 second(s) High 25.1-36.5 [facility] Comment on above: Result Comment: Para [...] the same coagulation reagent and instrumentation as [facility]. Currently there are no coagulation studies available worldwide for children to 14 days, and no normal ranges. Heparin therapeutic range (represented by Anti-Factor Xa activity of 0.2 - 0.4 U/mL) corresponds to PTT of 56.6 - 109.0 sec. Performed By: #### 2 332099, 0885244, 6552065, 1991900, 83806600, 42066123 ####[facility] [address] [place] [address] INR Coag (PPP) [Relative time] 1.7 {INR} Invalid Interpretation Code [facility] Comment on above: Result Comment: INR results are specifically intended to assess patients stabilized on long-term Anticoagulation therapy suggested INR?s ?Less Intensive Anticoagulation? 2.0 ? 3.0Conventional Range 3.0 ? 4.5 Performed By: #### 2 954997, 2229469, 0214798, 1400625, 36470592, 69915622 ####[facility] [address] [place] [address] PT Coag (PPP) [Time] 19.0 second(s) High 9.4-12.5 [facility] Comment on above: Result Comment: 15 [...] the same coagulation reagent and instrumentation as [facility]. Currently there are no coagulation studies available worldwide for children to 14 days, and no normal ranges. Performed By: #### 2 553702, 9589557, 4568825, 8760294, 46844126, 02976014 ####[facility] [address] [place] [address] Phosphoruson 04-08-2023 Phosphate [Mass/Vol] 2.7 mg/dL Normal 1.9-4.6 [facility] Comment on above: Performed By: #### 2 710808, 3810042, 7030441, 6558014, 92650282, 05626057 ####[facility] [address] [place] [address] Physician Orderon 04-08-2023 Physician Order [id number]#1.00CD :[address] [facility] eGFRon 04-08-2023 GFR/1.73 sq M.predicted among non-blacks MDRD (S/P/Bld) [Vol rate/Area] 100 mL/min/1.73 m2 Normal >=59 [facility] Comment on above: Order Comment: Order added by Discern Expert. Result Comment: Donkey Engine Firer/Fireman alen kidney disease could be indicated at eGFR's of less than 60 mL/min/1.73m2. Kidney failure is indicated at less than 15 mL/min/1.73m2. Performed By: #### 2 188393, 7266368, 1304519, 5528476, 45606822, 58222910 ####[facility] [address] [place] [address] Formson 04-07-2023 Forms [id number]#1.00CD: [address] [facility] Orders Officeon 04-07-2023 Orders Office [id number]#1.00CD: [address] [facility] Path. Reviewon 04-05-2023 Path Review Anemia with anisocytosis, microcytes and mild polychromasia. Clinical correlation and iron studies are recommended to determine etiology as clinically indicated. Invalid Interpretation Code [facility] Comment on above: Order Comment: Order Added by Discern Expert. Performed By: #### 2 324758, 1277241, 77845811, 98518567, 9546784, 75422166 ####[facility] [address] [place] [address] Auto Diffon 04-04-2023 Basophils/100 WBC (Bld) 0.9 % Normal 0.0-2.0 F [facility] Comment on above: Order Comment: Order Added by Discern Expert. Performed By: #### 2 590963, 5766248, 31536108, 29131269, 8371433, 39772915 ####[address] [place] [address] Basophils/Leukocytes Auto (Bld) [Pure # fraction] 0.0 E9/L Normal 0.0-0.2 [facility] Comment on above: Order Comment: Order Added by Discern Expert. Performed By: #### 2 282180, 7326393, 38391677, 54016790, 2495452, 49773521 ####[facility] [address] [place] [address] Eosinophils/100 WBC (Bld) 1.6 % Normal 0.0-8.0 [facility] Comment on above: Order Comment: Order Added by Discern Expert. Performed By: #### 2 912080, 6407758, 20161315, 39213899, 7466440, 08586864 ####[address] [address] Eosinophils/Leukocytes Auto (Bld) [Pure # fraction] 0.1 E9/L Normal 0.0-0.5 [facility] Comment on above: Order Comment: Order Added by Discern Expert. Performed By: #### 2 882447, 6762983, 52146861, 96634454, 2499218, 90081407 ####[address] [address] Lymphocytes/100 WBC (Bld) 11.7 % Low 14.0-50.0 [facility] Comment on above: Order Comment: Order Added by Discern Expert. Performed By: #### 2 819396, 4953513, 47113712, 49308035, 3380016, 25118247 ####[address] [address] Lymphocytes/Leukocytes Auto (Bld) [Pure # fraction] 0.4 E9/L Low 1.0-4.0 [facility] Comment on above: Order Comment: Order Added by Discern Expert. Performed By: #### 2 299209, 9165117, 05161183, 00534701, 1460908, 51868200 ####[address] [address] Monocytes/100 WBC (Bld) 13.1 % Normal 4.0-14.0 [facility] Comment on above: Order Comment: Order Added by Discern Expert. Performed By: #### 2 578447, 5957905, 50991337, 52844314, 7497974, 03384850 ####[address] [address] Monocytes/Leukocytes Auto (Bld) [Pure # fraction] 0.5 E9/L Normal 0.2-1.0 [facility] Comment on above: Order Comment: Order Added by Discern Expert. Performed By: #### 2 275555, 0051361, 67655802, 50203873, 6896573, 23278294 ####[facility] [address] [place] [address] Neutrophils/100 WBC (Bld) 72.7 % Normal 36.0-75.0 [facility] Comment on above: Order Comment: Order Added by Discern Expert. Performed By: #### 2 312314, 5566764, 67316747, 36768871, 1845375, 35146431 ####[facility] [address] [place] [address] Neutrophils/Leukocytes Auto (Bld) [Pure # fraction] 2.7 E9/L Normal 2.0-7.5 [facility] Comment on above: Order Comment: Order Added by Discern Expert. Performed By: #### 2 612735, 0424995, 83748516, 51652738, 0022543, 52284085 ####[facility] [address] [place] [address] BMPon 04-04-2023 Anion gap [Moles/Vol] 10 mmol/L Normal 6-16 [facility] Comment on above: Performed By: #### 2 586515, 3124016, 14275037, 53995611, 7136844, 36300735 ####[facility] [address] [place] [address] Calcium [Mass/Vol] 9.2 mg/dL Normal 8.9-11.1 [facility] Comment on above: Performed By: #### 2 777449, 7226217, 08764363, 57258673, 7321573, 50520839 ####[facility] [address] [place] [address] Chloride [Moles/Vol] 102 mmol/L Normal 101-111 [facility] Comment on above: Performed By: #### 2 332033, 9155824, 27887757, 03320283, 2676985, 17695905 ####[facility] [address] [place] [address] CO2 [Moles/Vol] 28 mmol/L Normal 21-31 [facility] Comment on above: Performed By: #### 2 306870, 5667171, 20739381, 43436626, 8267077, 27172351 ####[facility] [address] [place] [address] Creatinine [Mass/Vol] 0.5 mg/dL Normal 0.5-1.3 [facility] Comment on above: Performed By: #### 2 374330, 4688878, 94139935, 29192993, 4591576, 46365012 ####[facility] [address] [place] [address] Glucose [Mass/Vol] 171 mg/dL Normal 55-199 [facility] Comment on above: Result Comment: If t his glucose result represents a fasting glucose, interpretation should refer to the following reference range: 55-99 mg/dL Performed By: #### 2 990142, 8390591, 52364447, 06591133, 9133206, 58799521 ####[facility] [address] [place] [address] Potassium [Moles/Vol] 3.8 mmol/L Normal 3.5-5.3 [facility] Comment on above: Performed By: #### 2 660844, 7191845, 73538724, 85613912, 4371456, 07027466 ####[facility] [address] [place] [address] Sodium [Moles/Vol] 136 mmol/L Normal 135-145 [facility] Comment on above: Performed By: #### 2 341609, 0175689, 24335219, 94704889, 3088451, 69106477 ####[facility] [address] [place] [address] Urea nitrogen [Mass/Vol] 34 mg/dL High 5-21 [facility] Comment on above: Performed By: #### 2 665975, 9808831, 96999122, 91732738, 0368936, 92744871 ####[facility] [address] [place] [address] Urea nitrogen/Creatinine [Mass ratio] 68 No Units High 10-20 [facility] Comment on above: Performed By: #### 2 521961, 3581096, 90210676, 54096126, 5639367, 61229666 ####[facility] [address] [place] [address] CBC w/ Auto Diffon 3 Erythrocyte distribution width (RBC) [Ratio] 22.1 % High 10.9-14.2 [facility] Comment on above: Performed By: #### 2 640304, 7439066, 28508793, 21215654, 5514597, 75283199 ####[address] Hematocrit (Bld) [Volume fraction] 31.2 % Low 37.7-49.0 [facility] Comment on above: Performed By: #### 2 417772, 8189866, 05109424, 51024560, 9997339, 81010669 ####[facility] [address] [place] [address] Hemoglobin (Bld) [Mass/Vol] 10.1 g/dL Low 13.5-17.5 [facility] Comment on above: Performed By: #### 2 222018, 8473315, 36152900, 82640504, 0321155, 87980427 ####[address] [address] MCH (RBC) [Entitic mass] 30.3 pg Normal 27.0-34.0 [facility] Comment on above: Performed By: #### 2 307767, 4262582, 13047882, 16538747, 2180167, 22463003 ####[address] [address] MCHC (RBC) [Mass/Vol] 32.4 g/dL Normal 31.4-36.0 [facility] Comment on above: Performed By: #### 2 506664, 0482156, 52163394, 58978989, 8372681, 40496813 ####[address] [place] [address] MCV (RBC) [Entitic vol] 93.6 fL Normal 80.0-100.0 F [facility] Comment on above: Performed By: #### 2 229501, 9084973, 44722896, 30332326, 8196941, 62484265 ####[address] [address] Platelet mean volume (Bld) [Entitic vol] 8.5 fL Normal 6.4-10.8 [facility] Comment on above: Performed By: #### 2 013613, 9231243, 58973746, 77560279, 7382092, 24520260 ####[address] [address] Platelets (Bld) [#/Vol] 170.0 E9/L Normal 150.0-500.0 [facility] Comment on above: Performed By: #### 2 638458, 3455283, 09780182, 28498741, 1991248, 12732368 ####[address] [address] RBC (Bld) [#/Vol] 3.3 E12/L Low 4.3-5.9 [facility] Comment on above: Performed By: #### 2 857307, 2815118, 30265402, 65251061, 2028102, 58936698 ####[address] [address] WBC corrected for nucl RBC Auto (Bld) [#/Vol] 3.7 E9/L Low 4.0-11.0 [facility] Comment on above: Performed By: #### 2 608472, 6843646, 81538617, 20650669, 0351539, 41043817 ####[address] [address] CHEMISTRYOrdered By: SYSTEM SYSTEM on 04-04-2023 Anion [...] 106 mL/min/1.73 m2 Normal >=59mL/min/1 .73 m2 [facility] Chem S Glucose [Mass/Vol] 171 mg/dL Normal [...] for Treatmenton 03-11 Consent for Treatment [id number]#1.00CD: [address] [facility] Consent for Treatment [id number]#1.00CD: [address] [facility] HEMATOLOGYOrdered By: Damian Peterson on 04-04-2023 Anisocytosis Ql (Bld) Present (04/04/23 12:24 PM) Normal [facility] HemeManSS Erythrocyte distribution width (RBC) [Ratio] 22.1 [...] 32.4 g/dL Normal 31.4 - 36.0 gm/dL FT HemeAutoSS MCV (RBC) [Entitic vol] 93.6 fL [...] 0.9 % Normal 0.0 - 2.0 % FT HemeAutoSS Basophils/Leukocytes Auto (Bld) [Pure # fraction] [...] 04-04-2023 Heart and Vascular Office/Clinic Note Normal [facility] Comment on above: Result Comment: Elec tronically Signed By: Vickey WISE, Erwin Evans\.br\Date and Time Signed: 04/04/23 11:48 EDT Morphon 04-04-2023 Anisocytosis Ql (Bld) Present Normal Fis [facility] Comment on above: Order Comment: Order Added by Discern Expert. Performed By: #### 2 444532, 5607603, 34771474, 72551984, 7302320, 76440625 ####[facility] [address] [place] [address] Hypochromia Auto Ql (Bld) Present Normal [facility] Comment on above: Order Comment: Order Added by Discern Expert. Performed By: #### 2 617718, 1708668, 82233922, 09717758, 8082326, 76988625 ####[facility] [address] [place] [address] Morphology Jah (Bld) [Interp] See Morphology Normal [facility] Comment on above: Order Comment: Order Added by Discern Expert. Performed By: #### 2 023780, 7502716, 99577416, 71385566, 3743751, 75080223 ####[facility] [address] [facility] [place] [address] Polychromasia LM Ql (Bld) Present Normal [facility] Comment on above: Order Comment: Order Added by Discern Expert. Performed By: #### 2 933355, 7079931, 89568066, 41412591, 6965886, 60288056 ####[facility] [address] [place] [address] Rouleaux LM Ql (Bld) Present Normal Fish er [facility] Comment on above: Order Comment: Order Added by Discern Expert. Performed By: #### 2 840531, 6181508, 39518001, 92716675, 1648944, 76933456 ####[facility] [address] [facility] [place] [place] [address] Schistocytes LM Ql (Bld) Present Normal [facility] Comment on above: Order Comment: Order Added by Discern Expert. Performed By: #### 2 726341, 1043908, 73158459, 86601123, 4271112, 51904233 ####[facility] [address] [facility] [place] [address] Spherocytes LM Ql (Bld) Present Normal F [facility] Comment on above: Order Comment: Order Added by Discern Expert. Performed By: #### 2 970157, 7738017, 22601531, 06024992, 7649318, 25944339 ####[facility] [address] [facility] [address] Outside Progress Noteon 03-11 Outside Progress Note [id number]#1.00CD :[address] [facility] eGFRon 04-04-2023 GFR/1.73 sq M.predicted among non-blacks MDRD (S/P/Bld) [Vol rate/Area] 106 mL/min/1.73 m2 Normal >=59 [facility] Comment on above: Order Comment: Order added by Discern Expert. Result Comment: Donkey Engine Firer/Fireman alen kidney disease could be indicated at eGFR's of less than 60 mL/min/1.73m2. Kidney failure is indicated at less than 15 mL/min/1.73m2. Performed By: #### 2 860885, 7828338, 44273405, 35913845, 7381042, 36212291 ####[facility] [address] [place] [address] Consent for Treatmenton Consent for Treatment [id number]#1.00CD: [address] [facility] Heart and Vascular Office/Cl inic Noteon 03-17-2023 Heart and Vascular Office/Clinic Note Normal [facility] Comment on above: Result Comment: Elec tronically Signed By: Vickey WISE, Erwin Evans\.br\Date and Time Signed: 03/17/23 14:05 EDT Progress Note-Physicianon Progress Note-Physician [id number]#1.00CD:[address] [facility] Coding Queryon 03-15-[address] [facility] Progress Note-Physicianon Progress Note-Physician Normal F [facility] Comment on above: Result Comment: Elec tronically Signed By: Katheryn WISE, Aiden\.br\Date and Time Signed: 03/15/23 20:46 EDT C Urineon 03-12-2023 Bacteria identified Cx Nom (U) Normal [facility] Comment on above: Performed By: #### 2 627660, 69646533 ####[facility] [address] [place] [address] IntraOperative Documentson 0 03-11-2023 IntraOperative Documents [id number]#1.00CD :[address] [facility] .Interpretation:on 3 HCV Ab IA Ql Comment Invalid Interpretation Code [facility] Comment on above: Result Comment: Not infected with HCV unless early or acute infection issuspected (which may be delayed in an immunocompromisedindividual), or other evidence exists to indicate HCV infection.Performed at: [facility] [address] [place], [place] [id number] PhD Azar Luevano Performed By: #### 8 48342423, 3384060088, 8257050377, 8463343 ####[facility] [address] [place] [address] CHEMISTRYOrdered By: Lab ROP User on 03-10-2023 Glucose [Mass/Vol] 140 mg/dL High 55 - 99 mg/dL [facility] POC Subsection Comment on above: Result Comment: Nuno MARIN POC Device SN [id number] Invalid Interpretation Code [facility] POC Subsection POC User ID [id number] Invalid Interpretation Code FT POC Subsection POC Username JOSE LUIS CAMPBELL Invalid Interpretation Code FT POC Subsection Glucose [Mass/Vol] 116 mg/dL High 55 - 99 mg/dL [facility] POC Subsection Comment on above: Result Comment: Nuno MARIN POC Device SN [id number] Invalid Interpretation Code [facility] POC Subsection POC User ID [id number] Invalid Interpretation Code FT POC Subsection POC Username ADRIAN JOSE LUIS Invalid Interpretation Code FT POC Subsection CHEMISTRYOrdered By: SYSTEM SYSTEM on [...] POCon Glucose [Mass/Vol] 140 mg/dL High 55-99 [facility] Comment on above: Result Comment: Nuno MARIN Performed By: #### 2 81672229 ####[facility] [address] [place] [address] Glucose [Mass/Vol] 116 mg/dL High 55-99 [facility] Comment on above: Result Comment: Nuno aranda RN/ Performed By: #### 2 39179387 ####[facility] [address] [place] [address] Glucose [Mass/Vol] 83 mg/dL Normal 55-99 [facility] Comment on above: Result Comment: Nuno MARIN Performed By: #### 2 96068429 ####[facility] [address] [place] [address] Consent for Blood Transfusio non 03-10-2023 Consent for Blood Transfusion [id number]#1.00CD :[address] [facility] Discharge Instructionson Discharge Instructions [id number]#1.00CD :[address] [facility] Discharge Note-Nursingon Discharge Note-Nursing Normal [facility] HCV Antibody RFX to Quant PC Chai 03-10-2023 HCV IgG IA Ql Non-Reactive Invalid Interpretation Code Non Reactive [facility] Comment on above: Result Comment: Perf ormed at: [address] [place], [place] [id number] PhD Azar Luevano Performed By: #### 8 74631609, 7946881039, 5848837437, 8747372 ####[facility] [address] [place] [address] Hep Bs Agon 03-10-2023 HBV surface Ag IA Ql Negative Invalid Interpretation Code Negative [facility] Comment on above: Result Comment: Perf ormed at: [facility] [address] [place], [place] [id number] PhD Azar Luevano Performed By: #### 8 75956070, 4765310520, 7940434302, 1636832 ####[facility] [address] [place] [address] Inpatient Clinical Summaryon 03-10-2023 Inpatient Clinical Summary Normal [facility] Inpatient Patient Summaryon 03-10-2023 Inpatient Patient Summary Normal [facility] Interdisciplinary Note - Michelet e Manageron 03-10-2023 Interdisciplinary Note - Blanchard Grinder Operator Normal [facility] Comment on above: Result Comment: Elec tronically Signed By: Sonia Morejon\.br\Date and Time Signed: 03/10/23 14:25 EDT Lyteson 03-10-2023 Anion gap [Moles/Vol] 9 mmol/L Normal 6-16 [facility] Comment on above: Order Comment: line packet sent up to floor...[facility] 03/10/2023 04:24:28 EDT Performed By: #### 2 026480, 4946130 ####[facility] [address] [place] [address] Chloride [Moles/Vol] 102 mmol/L Normal 101-111 [facility] Comment on above: Order Comment: line packet sent up to floor...[facility] 03/10/2023 04:24:28 EDT Performed By: #### 2 989613, 7706705 ####[facility] [address] [place] [address] CO2 [Moles/Vol] 29 mmol/L Normal 21-31 [facility] Comment on above: Order Comment: line packet sent up to floor...[facility] 03/10/2023 04:24:28 EDT Performed By: #### 2 067038, 1897460 ####[facility] [address] [place] [address] Potassium [Moles/Vol] 3.5 mmol/L Normal 3.5-5.3 [facility] Comment on above: Order Comment: line packet sent up to floor...[facility] 03/10/2023 04:24:28 EDT Performed By: #### 2 640808, 2456611 ####[facility] [address] [place] [address] Sodium [Moles/Vol] 136 mmol/L Normal 135-145 [facility] Comment on above: Order Comment: line packet sent up to floor...[facility] 03/10/2023 04:24:28 EDT Performed By: #### 2 295187, 3686298 ####[facility] [address] [place] [address] Magnesiumon 03-10-2023 Magnesium [Mass/Vol] 1.8 mg/dL Normal 1.3-2.4 [facility] Comment on above: Performed By: #### 2 715497, 7704699 ####[facility] [address] [place] [address] Progress Note-Nurseon 2022 Progress Note-Nurse Late Entry Pt's spouse took home all belongings except for the wound vac in preparation for discharge on 03/10 @ [address] [facility] Transfer Documentson 023 Transfer Documents [id number]#1.00CD :[address] [facility] UA With Cult Reflexon 2022 Bacteria LM Ql (Urine sed) TRACE Normal Trace [facility] Comment on above: Order Comment: Urina ry Catheter Insertion triggered Urinalysis With Culture Reflex order by discern. Performed By: #### 2 541930, 89466961 ####[facility] [address] [place] [address] Bilirubin Ql (U) Negative Normal Negative [facility] Comment on above: Order Comment: Urina ry Catheter Insertion triggered Urinalysis With Culture Reflex order by discern. Performed By: #### 2 840183, 74157285 ####[facility] [address] [place] [address] Clarity (U) CLEAR Normal Clear [facility] Comment on above: Order Comment: Urina ry Catheter Insertion triggered Urinalysis With Culture Reflex order by discern. Performed By: #### 2 836782, 08497463 ####[facility] [address] [place] [address] Color (U) YELLOW Normal Yellow [facility] Comment on above: Order Comment: Urina ry Catheter Insertion triggered Urinalysis With Culture Reflex order by discern. Performed By: #### 2 861228, 60250538 ####[address] [address] Epithelial cells.squamous LM.HPF (Urine sed) [#/Area] 0-2 Normal 0-2 [facility] Comment on above: Order Comment: Urina ry Catheter Insertion triggered Urinalysis With Culture Reflex order by discern. Performed By: #### 2 468173, 48133013 ####[address] [address] Glucose Test strip (U) [Mass/Vol] Negative Normal Negative [facility] Comment on above: Order Comment: Urina ry Catheter Insertion triggered Urinalysis With Culture Reflex order by discern. Performed By: #### 2 950176, 51126744 ####[address] [address] Hemoglobin Ql (U) 1+ Abnormal Negative [facility] Comment on above: Order Comment: Urina ry Catheter Insertion triggered Urinalysis With Culture Reflex order by discern. Performed By: #### 2 748197, 71824833 ####[place] [address] Ketones (U) [Mass/Vol] Negative Normal Negative [facility] Comment on above: Order Comment: Urina ry Catheter Insertion triggered Urinalysis With Culture Reflex order by discern. Performed By: #### 2 997795, 82028623 ####[address] [address] [place].plasma/[place]. RBC (Bld) [Mass ratio] 4-20 Normal 0-3 [facility] Comment on above: Order Comment: Urina ry Catheter Insertion triggered Urinalysis With Culture Reflex order by discern. Performed By: #### 2 533257, 57880413 ####[address] [address] Mucus Ql (Urine sed) TRACE Normal [facility] Comment on above: Order Comment: Urina ry Catheter Insertion triggered Urinalysis With Culture Reflex order by discern. Performed By: #### 2 587863, 51560812 ####[address] [address] Nitrite Ql (U) Negative Normal Negative [facility] Comment on above: Order Comment: Urina ry Catheter Insertion triggered Urinalysis With Culture Reflex order by discern. Performed By: #### 2 215565, 86167984 ####[place] [address] pH (U) 8.5 [pH] Invalid Interpretation Code 5.0-9.0 [facility] Comment on above: Order Comment: Urina ry Catheter Insertion triggered Urinalysis With Culture Reflex order by discern. Performed By: #### 2 728097, 83668572 ####[place] [address] Protein (U) [Mass/Vol] TRACE Abnormal Negative [facility] Comment on above: Order Comment: Urina ry Catheter Insertion triggered Urinalysis With Culture Reflex order by discern. Performed By: #### 2 889952, 26514084 ####[place] [address] Specific gravity (U) [Rel density] 1.015 Invalid Interpretation Code 1.005-1.030 [facility] Comment on above: Order Comment: Urina ry Catheter Insertion triggered Urinalysis With Culture Reflex order by discern. Performed By: #### 2 858723, 93503226 ####[place] [address] Type of Urine collection method Boles Normal [facility] Comment on above: Order Comment: Urina ry Catheter Insertion triggered Urinalysis With Culture Reflex order by discern. Performed By: #### 2 351751, 50296125 ####[place] [address] Urobilinogen Qn (U) 0.2 {Mercedes'U}/dL Normal 0.0-1.0 [facility] Comment on above: Order Comment: Urina ry Catheter Insertion triggered Urinalysis With Culture Reflex order by discern. Performed By: #### 2 530301, 23964817 ####[facility] [address] [place] [address] WBC Auto Ql (U) 1+ Abnormal Negative [facility] Comment on above: Order Comment: Urina ry Catheter Insertion triggered Urinalysis With Culture Reflex order by discern. Performed By: #### 2 307478, 69177963 ####[facility] [address] [place] [address] WBC LM.HPF (Urine sed) [#/Area] 6-15 Abnormal 0-5 [facility] Comment on above: Order Comment: Urina ry Catheter Insertion triggered Urinalysis With Culture Reflex order by discern. Performed By: #### 2 113921, 03835922 ####[facility] [address] [place] [address] URINALYSISOrdered By: Fabi Massey on 03-10-2023 Bacteria [...] PM) Normal Negative [facility] UA Auto SS [place].plasma/[place]. RBC (Bld) [Mass ratio] 4-20 /HPF Normal [...] (03/10/23 12:33 PM) Invalid Interpretation Code Negative FT UA Auto SS Specific gravity (U) [Rel density] 1.015 *NA* (03/10/23 12:33 PM) Invalid Interpretation Code 1.005 - 1.030 FT UA Auto SS UA Spec Desc Boles (03/10/23 12:33 PM) Normal [facility] UA Auto SS Urobilinogen Qn (U) 0.7057206 {Mercedes'U}/dL Normal 0.0 - 1.0 EU/dL FT UA Auto SS WBC Auto Ql (U) 1+ *ABN* (03/10/23 12:33 PM) Invalid Interpretation Code Negative [facility] UA Auto SS WBC LM.HPF (Urine sed) [#/Area] 6-15 /HPF Invalid Interpretation Code 0-5/HPF [facility] UA Auto SS CHEMISTRYOrdered By: Lab ROP User on 03-09-2023 Glucose [Mass/Vol] 83 mg/dL Normal 55 - 99 mg/dL [facility] POC Subsection Comment on above: Result Comment: Nuno MARIN POC Device SN [id number] Invalid Interpretation Code [facility] POC Subsection POC User ID [id number] Invalid Interpretation Code [facility] POC Subsection POC Username JULIO CÉSAR CHAVIS Invalid Interpretation Code [facility] POC Subsection Capillary Glucose POCon 02-09 Glucose [Mass/Vol] 98 mg/dL Normal 55-99 [facility] Comment on above: Result Comment: Nuno MARIN Performed By: #### 2 [id number] ####[facility] [address] [place] [address] Glucose [Mass/Vol] 219 mg/dL High 55-99 [facility] Comment on above: Result Comment: Nuno MARIN Performed By: #### 2 [id number] ####[facility] [address] [place] [address] Glucose [Mass/Vol] 130 mg/dL High 55-99 [facility] Comment on above: Result Comment: Nuno aranda RN/ Performed By: #### 2 [id number] ####[facility] [address] [place] [address] Interdisciplinary Note - Michelet e Manageron 03-09-2023 Interdisciplinary Note - Blanchard Grinder Operator Normal [facility] Comment on above: Result Comment: Elec tronically Signed By: Sonia Morejon\.br\Date and Time Signed: 03/09/23 12:18 EDT Progress Note-Physicianon Progress Note-Physician Normal [facility] Comment on above: Result Comment: Elec tronically Signed By: Anabela DONIS\.br\Date and Time Signed: 03/09/23 16:26 EDT\.br\Electronically Co-Signed By: West Shukla MD\.br\Date and Time Co-Signed: 03/09/23 17:57 EDT UA With Cult Reflexon 2022 Type of Urine collection method Clean Catch Normal [facility] Comment on above: Order Comment: Urina ry Catheter Insertion triggered Urinalysis With Culture Reflex order by discern. Performed By: #### 1 [id number] ####[facility] [address] [place] [address] Bacteria LM Ql (Urine sed) TRACE Normal Trace [facility] Comment on above: Order Comment: Urina ry Catheter Insertion triggered Urinalysis With Culture Reflex order by discern. Performed By: #### 1 [id number] ####[facility] [address] [place] [address] Bilirubin Ql (U) Negative Normal Negative [facility] Comment on above: Order Comment: Urina ry Catheter Insertion triggered Urinalysis With Culture Reflex order by discern. Performed By: #### 1 [id number] ####[facility] [address] [place] [address] Clarity (U) CLEAR Normal Clear [facility] Comment on above: Order Comment: Urina ry Catheter Insertion triggered Urinalysis With Culture Reflex order by discern. Performed By: #### 1 [id number] ####[facility] [address] [place] [address] Color (U) YELLOW Normal Yellow [facility] Comment on above: Order Comment: Urina ry Catheter Insertion triggered Urinalysis With Culture Reflex order by discern. Performed By: #### 1 [id number] ####[facility] [address] [place] [address] Epithelial cells.squamous LM.HPF (Urine sed) [#/Area] 0-2 Normal 0-2 [facility] Comment on above: Order Comment: Urina ry Catheter Insertion triggered Urinalysis With Culture Reflex order by discern. Performed By: #### 1 [id number] ####[facility] [address] [place] [address] Glucose Test strip (U) [Mass/Vol] Negative Normal Negative [facility] Comment on above: Order Comment: Urina ry Catheter Insertion triggered Urinalysis With Culture Reflex order by discern. Performed By: #### 1 [id number] ####[facility] [address] [place] [address] Hemoglobin Ql (U) 1+ Abnormal Negative [facility] Comment on above: Order Comment: Urina ry Catheter Insertion triggered Urinalysis With Culture Reflex order by discern. Performed By: #### 1 [id number] ####[address] [address] Ketones (U) [Mass/Vol] Negative Normal Negative [facility] Comment on above: Order Comment: Urina ry Catheter Insertion triggered Urinalysis With Culture Reflex order by discern. Performed By: #### 1 [id number] ####[address] [address] [place].plasma/[place]. RBC (Bld) [Mass ratio] 0-3 Normal 0-3 [facility] Comment on above: Order Comment: Urina ry Catheter Insertion triggered Urinalysis With Culture Reflex order by discern. Performed By: #### 1 [id number] ####[address] [address] Nitrite Ql (U) Negative Normal Negative [facility] Comment on above: Order Comment: Urina ry Catheter Insertion triggered Urinalysis With Culture Reflex order by discern. Performed By: #### 1 [id number] ####[address] [address] pH (U) 7.5 [pH] Invalid Interpretation Code 5.0-9.0 [facility] Comment on above: Order Comment: Urina ry Catheter Insertion triggered Urinalysis With Culture Reflex order by discern. Performed By: #### 1 [id number] ####[address] [address] Protein (U) [Mass/Vol] Negative Normal Negative [facility] Comment on above: Order Comment: Urina ry Catheter Insertion triggered Urinalysis With Culture Reflex order by discern. Performed By: #### 1 [id number] ####[address] [address] Specific gravity (U) [Rel density] 1.010 Invalid Interpretation Code 1.005-1.030 [facility] Comment on above: Order Comment: Urina ry Catheter Insertion triggered Urinalysis With Culture Reflex order by discern. Performed By: #### 1 [id number] ####[address] [address] Urobilinogen Qn (U) 0.2 {Mercedes'U}/dL Normal 0.0-1.0 [facility] Comment on above: Order Comment: Urina ry Catheter Insertion triggered Urinalysis With Culture Reflex order by discern. Performed By: #### 1 [id number] ####[address] [address] WBC Auto Ql (U) Negative Normal Negative [facility] Comment on above: Order Comment: Urina ry Catheter Insertion triggered Urinalysis With Culture Reflex order by discern. Performed By: #### 1 [id number] ####[address] [address] WBC LM.HPF (Urine sed) [#/Area] 0-5 Normal 0-5 [facility] Comment on above: Order Comment: Urina ry Catheter Insertion triggered Urinalysis With Culture Reflex order by discern. Performed By: #### 1 [id number] ####[facility] [address] [place] [address] URINALYSISOrdered By: Tommy Gerardo on 03-09-2023 Bacteria [...] PM) Normal Negative [facility] UA Auto SS [place].plasma/[place]. RBC (Bld) [Mass ratio] 0-3 /HPF Normal [...] [facility] UA Auto SS Urobilinogen Qn (U) 0.6711052 {Mercedes'U}/dL Normal 0.0 - 1.0 EU/dL [facility] UA Auto SS WBC Auto Ql (U) Negative (03/09/23 6:50 PM) Normal Negative [facility] UA Auto SS WBC LM.HPF (Urine sed) [#/Area] 0-5 /HPF Normal 0-5/HPF [facility] UA Auto SS CHEMISTRYOrdered By: SYSTEM SYSTEM on 03-08-2023 Anion gap [Moles/Vol] 10 mmol/L Normal 6 - 16 mEq/L [facility] Remisol Chloride [Moles/Vol] 103 mmol/L Normal 101 - 1 11 mmol/L [facility] Remisol CO2 [Moles/Vol] 27 mmol/L Normal 21 - 31 mmol/L [facility] Remisol Potassium [Moles/Vol] 3.6 mmol/L Normal 3.5 - 5.3 mmol/L [facility] Remisol Sodium [Moles/Vol] 136 mmol/L Normal 135 - 145 mmol/L [facility] Remisol Capillary Glucose POCon 02-09 Glucose [Mass/Vol] 154 mg/dL High 55-[address] [place] [address] Comment on above: Result Comment: Nuno MARIN Performed By: #### 2 [id number] ####[facility] [address] [place] [address] Glucose [Mass/Vol] 108 mg/dL High [address] [place] [address] Comment on above: Result Comment: Nuno MARIN Performed By: #### 2 [id number] ####[facility] [address] [place] [address] Glucose [Mass/Vol] 153 mg/dL High [address] [place] [address] Comment on above: Result Comment: Nuno MARIN Performed By: #### 2 [id number] ####[facility] [address] [place] [address] Glucose [Mass/Vol] 144 mg/dL High [address] [place] [address] Comment on above: Result Comment: Nuno MARIN Performed By: #### 2 [id number] ####[facility] [address] [place] [address] HIV-1/2 Ag/Ab Comboon 2022 HIV 1+2 Ab and HIV1 p24 Ag IA.rapid Nom (S/P/Bld) Negative Normal Negative [facility] Comment on above: Performed By: #### 8 [id number], [id number], [id number], [id number] ####[facility] [address] [place] [address] HIV 1+2 Ab+HIV1 p24 Ag IA Ql Non-Reactive Normal Non-Reactive [facility] Comment on above: Performed By: #### 8 [id number], [id number], [id number], 6530157 ####[facility] [address] [place] [address] HIV Combo Internal Control Line Reactive Normal Reactive [facility] Comment on above: Performed By: #### 8 [id number], [id number], [id number], 7776875 ####[facility] [address] [place] [address] HIV-1/2 Ag/Ab Combo Negative for HIV-1 and/or HIV-2 antibodies and HIV-[address] [facility] Interdisciplinary Note - Michelet e Manageron 03-08-2023 Interdisciplinary Note - Blanchard Grinder Operator Normal [facility] Comment on above: Result Comment: Elec tronically Signed By: Yane Escobar\.br\Date and Time Signed: 03/08/23 12:57 EDT Interdisciplinary Note - Alf singon 03-08-2023 Interdisciplinary Note - Nursing Normal [facility]-2023 Anion gap [Moles/Vol] 10 mmol/L Normal 6-16 [facility] Comment on above: Order Comment: yolanda azar given to jesi Casarez [id number] 03/08/2023 09:35:59 EDT Performed By: #### 2 [id number] ####[facility] [address] [place] [address] Chloride [Moles/Vol] 103 mmol/L Normal 101-111 [facility] Comment on above: Order Comment: yolanda azar given to jeis Casarez [id number] 03/08/2023 09:35:59 EDT Performed By: #### 2 [id number] ####[facility] [address] [place] [address] CO2 [Moles/Vol] 27 mmol/L Normal 21-31 [facility] Comment on above: Order Comment: packe t given to jesi [email or web address] 03/08/2023 09:35:59 EDT Performed By: #### 2 847876 ####[facility] [address] [place] [address] Potassium [Moles/Vol] 3.6 mmol/L Normal 3.5-5.3 [facility] Comment on above: Order Comment: packe t given to jesi [email or web address] 03/08/2023 09:35:59 EDT Performed By: #### 2 047165 ####[facility] [address] [place] [address] Sodium [Moles/Vol] 136 mmol/L Normal 135-145 [facility] Comment on above: Order Comment: packe t given to jesi [email or web address] 03/08/2023 09:35:59 EDT Performed By: #### 2 877471 ####[facility] [address] [place] [address] Physician Orderon 03-08-2023 Physician Order [id number]: [address] [facility] Progress Note-Physicianon Progress Note-Physician Normal [facility] Comment on above: Result Comment: Elec tronically Signed By: Anabela DONIS\.br\Date and Time Signed: 03/08/23 15:57 EDT\.br\Electronically Co-Signed By: West Shukla MD\.br\Date and Time Co-Signed: 03/08/23 16:14 EDT Progress Note-Physician Normal [facility] Comment on above: Result Comment: Elec tronically Signed By: Chong Coe M.D\.br\Date and Time Signed: 03/08/23 12:34 EDT Progress Note-Physician Normal [facility] Comment on above: Result Comment: Elec tronically Signed By: Lynda Carrero RN\.br\Date and Time Signed: 03/08/23 09:30 EDT\.br\Electronically Co-Signed By: Benji Russell DO\.br\Date and Time Co-Signed: 03/08/23 10:10 EDT Progress Note-Physician Normal F [facility] Comment on above: Result Comment: Elec tronically Signed By: MD Horner Ahmad F\.br\Date and Time Signed: 03/08/23 08:47 EDT Progress Note-Physician Normal F [facility] Comment on above: Result Comment: Elec tronically Signed By: MD Horner Ahmad F\.br\Date and Time Signed: 03/08/23 08:46 EDT Auto Diffon 03-07-2023 Basophils/100 WBC (Bld) 0.3 % Normal 0.0-2.0 [facility] Comment on above: Order Comment: Order Added by Discern Expert. Performed By: #### 2 809778, 7159811, [id number], 8015436 ####[facility] [address] [place] [address] Basophils/Leukocytes Auto (Bld) [Pure # fraction] 0.0 E9/L Normal 0.0-0.2 [facility] Comment on above: Order Comment: Order Added by Discern Expert. Performed By: #### 2 534157, 1392136, [id number], 1110782 ####[address] [address] Eosinophils/100 WBC (Bld) 1.1 % Normal 0.0-8.0 [facility] Comment on above: Order Comment: Order Added by Discern Expert. Performed By: #### 2 497103, 9192686, 70850051, 2901817 ####[address] [place] [address] Eosinophils/Leukocytes Auto (Bld) [Pure # fraction] 0.1 E9/L Normal 0.0-0.5 [facility] Comment on above: Order Comment: Order Added by Discern Expert. Performed By: #### 2 222360, 3093302, 44123733, 7651914 ####[facility] [address] [place] [address] Lymphocytes/100 WBC (Bld) 5.5 % Low 14.0-50.0 [facility] Comment on above: Order Comment: Order Added by Discern Expert. Performed By: #### 2 241578, 9534754, 98672551, 7445110 ####[address] [place] [address] Lymphocytes/Leukocytes Auto (Bld) [Pure # fraction] 0.3 E9/L Low 1.0-4.0 [facility] Comment on above: Order Comment: Order Added by Discern Expert. Performed By: #### 2 027649, 5232496, 07598707, 5713598 ####[address] [address] Monocytes/100 WBC (Bld) 10.4 % Normal 4.0-14.0 [facility] Comment on above: Order Comment: Order Added by Discern Expert. Performed By: #### 2 553787, 9297754, 54292304, 3041516 ####[address] [address] Monocytes/Leukocytes Auto (Bld) [Pure # fraction] 0.5 E9/L Normal 0.2-1.0 [facility] Comment on above: Order Comment: Order Added by Discern Expert. Performed By: #### 2 142430, 1024809, 27464387, 1266235 ####[address] [address] Neutrophils/100 WBC (Bld) 82.7 % High 36.0-75.0 [facility] Comment on above: Order Comment: Order Added by Discern Expert. Performed By: #### 2 107242, 0515369, 60894162, 1945404 ####[address] [place] [address] Neutrophils/Leukocytes Auto (Bld) [Pure # fraction] 4.1 E9/L Normal 2.0-7.5 [facility] Comment on above: Order Comment: Order Added by Discern Expert. Performed By: #### 2 279139, 4215364, 48470867, 8113953 ####[facility] [address] [place] [address] BMPon 03-07-2023 Anion gap [Moles/Vol] 8 mmol/L Normal 6-16 [facility] Comment on above: Performed By: #### 2 339484, 1437478, 45868317, 7937372 ####[facility] [address] [place] [address] Calcium [Mass/Vol] 8.8 mg/dL Low 8.9-11.1 [facility] Comment on above: Performed By: #### 2 125194, 3721440, 82058962, 7623950 ####[facility] [address] [place] [address] [address] Chloride [Moles/Vol] 107 mmol/L Normal 101-111 [facility] Comment on above: Performed By: #### 2 375943, 2508277, 11549345, 3543614 ####[facility] [address] [place] [address] CO2 [Moles/Vol] 28 mmol/L Normal 21-31 [facility] Comment on above: Performed By: #### 2 408405, 9785018, 94857195, 9071668 ####[facility] [address] [place] [address] Creatinine [Mass/Vol] 0.6 mg/dL Normal 0.5-1.3 [facility] Comment on above: Performed By: #### 2 445079, 7737646, 65017632, 2226077 ####[facility] [address] [place] [address] Glucose [Mass/Vol] 136 mg/dL Normal 55-199 [facility] Comment on above: Result Comment: If t his glucose result represents a fasting glucose, interpretation should refer to the following reference range: 55-99 mg/dL Performed By: #### 2 854885, 6249388, 88541720, 3612532 ####[facility] [address] [place] [address] Potassium [Moles/Vol] 3.1 mmol/L Low 3.5-5.3 [facility] Comment on above: Performed By: #### 2 601603, 9775835, 37285341, 6607514 ####[facility] [address] [place] [address] Sodium [Moles/Vol] 140 mmol/L Normal 135-145 [facility] Comment on above: Performed By: #### 2 313628, 8506344, 09165018, 8620439 ####[facility] [address] [place] [address] Urea nitrogen [Mass/Vol] 19 mg/dL Normal 5-21 [facility] Comment on above: Performed By: #### 2 215546, 5050345, 63245007, 0567145 ####[facility] [address] [place] [address] Urea nitrogen/Creatinine [Mass ratio] 32 No Units High 10-20 [facility] Comment on above: Performed By: #### 2 792447, 6565048, 69288850, 2933194 ####[facility] [address] [place] [address] CBC w/ Auto Diffon Erythrocyte distribution width (RBC) [Ratio] 19.2 % High 10.9-14.2 [facility] Comment on above: Performed By: #### 2 760702, 4732512, 28030156, 9392304 ####[facility] [address] [place] [address] Hematocrit (Bld) [Volume fraction] 27.3 % Low 37.7-49.0 [facility] Comment on above: Performed By: #### 2 999151, 2483253, 78379202, 3493500 ####[facility] [address] [place] [address] Hemoglobin (Bld) [Mass/Vol] 8.8 g/dL Low 13.5-17.5 [facility] Comment on above: Performed By: #### 2 025653, 2193550, 59230517, 5319208 ####[facility] [address] [place] [address] MCH (RBC) [Entitic mass] 27.4 pg Normal 27.0-34.0 [facility] Comment on above: Performed By: #### 2 546560, 0674345, 49238141, 6639455 ####[facility] [address] [place], [place] [address] MCHC (RBC) [Mass/Vol] 32.2 g/dL Normal 31.4-36.0 [facility] Comment on above: Performed By: #### 2 565170, 0436180, 95029877, 9484120 ####[address] MCV (RBC) [Entitic vol] 85.0 fL Normal 80.0-100.0 F [facility] Comment on above: Performed By: #### 2 946796, 7732959, 88376349, 1514949 ####[place] [address] Platelet mean volume (Bld) [Entitic vol] 8.4 fL Normal 6.4-10.8 [facility] Comment on above: Performed By: #### 2 621564, 2470743, 91898457, 5486381 ####[address] [address] Platelets (Bld) [#/Vol] 220.0 E9/L Normal 150.0-500.0 [facility] Comment on above: Performed By: #### 2 089237, 2293614, 76603190, 0554925 ####[address] [place] [address] RBC (Bld) [#/Vol] 3.2 E12/L Low 4.3-5.9 [facility] Comment on above: Performed By: #### 2 323525, 0201729, 77722923, 7142758 ####[facility] [address] [place] [address] WBC corrected for nucl RBC Auto (Bld) [#/Vol] 5.0 E9/L Normal 4.0-11.0 [facility] Comment on above: Performed By: #### 2 008746, 2914060, 58670623, 4280072 ####[facility] [address] [place] [address] CHEMISTRYOrdered By: SYSTEM SYSTEM on 03-07-2023 Anion gap [Moles/Vol] 8 mmol/L Normal 6 - 16 mEq/L [facility] Remisol Calcium [Mass/Vol] 8.8 mg/dL Low 8.9 - 11. 1 mg/dL [facility] Chloride [Moles/Vol] 107 mmol/L Normal 101 - 1 11 mmol/L [facility] CO2 [Moles/Vol] 28 mmol/L Normal 21 - 31 mmol/L [facility] Creatinine [Mass/Vol] 0.6 mg/dL Normal 0.5 - 1.3 mg/dL [facility] GFR/1.73 sq M.predicted among non-blacks MDRD (S/P/Bld) [Vol rate/Area] 100 mL/min/1.73 m2 Normal >=59mL/min/1 .73 m2 [facility] Chem S Glucose [Mass/Vol] 136 mg/dL Normal [...] 02-08 Glucose [Mass/Vol] 138 mg/dL High 55-99 [facility] Comment on above: Result Comment: Nuno aranda RN/ Performed By: #### 2 [id number] ####[facility] [address] [place] [address] Glucose [Mass/Vol] 91 mg/dL Normal 55-99 [facility] Comment on above: Result Comment: Nuno aranda RN/ Performed By: #### 2 [id number] ####[facility] [address] [place] [address] Glucose [Mass/Vol] 216 mg/dL High 55-99 [facility] Comment on above: Result Comment: Nuno aranda RN/ Performed By: #### 2 14839854 ####[facility] [address] [place] [address] Glucose [Mass/Vol] 133 mg/dL High 55-99 [facility] Comment on above: Result Comment: Nuno aranda RN/ Performed By: #### 2 [id number] ####[facility] [address] [place] [address] HEMATOLOGYOrdered By: SYSTEM SYSTEM on 03-07-2023 Basophils/100 [...] Michelet e Manageron 03-07-2023 Interdisciplinary Note - Blanchard Grinder Operator Normal [facility] Comment on above: Result Comment: Elec tronically Signed By: Sonia Morejon\.br\Date and Time Signed: 03/07/23 12:44 EDT Operative Reporton Operative Report Normal [facility] Comment on above: Result Comment: Elec tronically Signed By: Erwin Hurd MD\.br\Date and Time Signed: 03/07/23 20:21 EDT eGFRon 03-07-2023 GFR/1.73 sq M.predicted among non-blacks MDRD (S/P/Bld) [Vol rate/Area] 100 mL/min/1.73 m2 Normal >=59 [facility] Comment on above: Order Comment: Order added by Discern Expert. Result Comment: Donkey Engine Firer/Fireman alen kidney disease could be indicated at eGFR's of less than 60 mL/min/1.73m2. Kidney failure is indicated at less than 15 mL/min/1.73m2. Performed By: #### 2 004618, 1470135, 22302131, 2700284 ####[facility] [address] [place] [address] Ammoniaon 03-06-2023 Ammonia (P) [Moles/Vol] 16 mcmol Normal 11-35 F [facility] Comment on above: Performed By: #### 2 946099 ####[facility] [address] [place] [address] CHEMISTRYOrdered By: SYSTEM SYSTEM on 03-06-2023 Ammonia (P) [Moles/Vol] 16 umol Normal 11 - 35 mcmol [facility] Remisol Capillary Glucose POCon 02-08 Glucose [Mass/Vol] 129 mg/dL High 55-99 [facility] Comment on above: Result Comment: Nuno MARIN Performed By: #### 2 [id number] ####[facility] [address] [place] [address] Glucose [Mass/Vol] 181 mg/dL High 55-99 [facility] Comment on above: Performed By: #### 2 [id number] ####[facility] [address] [place] [address] Glucose [Mass/Vol] 209 mg/dL High 55-99 [facility] Comment on above: Result Comment: Nuno MARIN Performed By: #### 2 [id number] ####[facility] [address] [place] [address] Glucose [Mass/Vol] 136 mg/dL High 55-99 [facility] Comment on above: Result Comment: Nuno aranda RN/ Performed By: #### 2 [id number] ####[facility] [address] [place] [address] Interdisciplinary Note - Michelet e Manageron 03-06-2023 Interdisciplinary Note - Blanchard Grinder Operator Normal [facility] Comment on above: Result Comment: Elec tronically Signed By: Leona Schwarz RN\.br\Date and Time Signed: 03/06/23 11:50 EDT Progress Note-Physicianon Progress Note-Physician Normal F [facility] Comment on above: Result Comment: Elec tronically Signed By: Savage Petty MD\.br\Date and Time Signed: 03/06/23 12:09 EDT Progress Note-Physician Normal F [facility] Comment on above: Result Comment: Elec tronically Signed By: Lynda Carrero RN\.br\Date and Time Signed: 03/06/23 10:26 EDT\.br\Electronically Co-Signed By: Benji Russell DO\.br\Date and Time Co-Signed: 03/06/23 10:39 EDT Progress Note-Physician Normal F [facility] Comment on above: Result Comment: Elec tronically Signed By: Shayy BALLESTEROS MD\.br\Date and Time Signed: 03/06/23 09:20 EDT Auto DiffOrdered By: SYSTEM SYSTEM on 03-05-2023 Basophils/100 WBC (Bld) 0.4 % Normal 0.0-2.0 [facility] Comment on above: Order Comment: Order Added by Discern Expert. Performed By: #### 2 459064, 0159697, 97493724, 7738366 ####[facility] [address] [place] [address] Basophils/Leukocytes Auto (Bld) [Pure # fraction] 0.0 E9/L Normal 0.0-0.2 [facility] Comment on above: Order Comment: Order Added by Discern Expert. Performed By: #### 2 573328, 2147327, 59261016, 6204638 ####[facility] [address] [place] [address] Eosinophils/100 WBC (Bld) 0.4 % Normal 0.0-8.0 [facility] Comment on above: Order Comment: Order Added by Discern Expert. Performed By: #### 2 930737, 4181795, 57181626, 6631877 ####[address] [address] Eosinophils/Leukocytes Auto (Bld) [Pure # fraction] 0.0 E9/L Normal 0.0-0.5 [facility] Comment on above: Order Comment: Order Added by Discern Expert. Performed By: #### 2 576111, 0681594, 03469019, 8040609 ####[address] [address] Lymphocytes/100 WBC (Bld) 5.2 % Low 14.0-50.0 [facility] Comment on above: Order Comment: Order Added by Cristiano Expert. Performed By: #### 2 702535, 1230559, 09521744, 0609299 ####[address] [address] Lymphocytes/Leukocytes Auto (Bld) [Pure # fraction] 0.3 E9/L Low 1.0-4.0 [facility] Comment on above: Order Comment: Order Added by Cristiano Expert. Performed By: #### 2 867845, 2687357, 08126539, 9224362 ####[address] [address] Monocytes/100 WBC (Bld) 9.2 % Normal 4.0-14.0 [facility] Comment on above: Order Comment: Order Added by Cristiano Expert. Performed By: #### 2 158463, 6316940, 36553216, 6326429 ####[address] [address] Monocytes/Leukocytes Auto (Bld) [Pure # fraction] 0.6 E9/L Normal 0.2-1.0 [facility] Comment on above: Order Comment: Order Added by Cristiano Expert. Performed By: #### 2 300151, 3286992, 61659406, 2370015 ####[address] [place] [address] Neutrophils/100 WBC (Bld) 84.8 % High 36.0-75.0 [facility] Comment on above: Order Comment: Order Added by Discern Expert. Performed By: #### 2 745560, 9095265, 32087506, 5804975 ####[facility] [address] [place] [address] Neutrophils/Leukocytes Auto (Bld) [Pure # fraction] 5.6 E9/L Normal 2.0-7.5 [facility] Comment on above: Order Comment: Order Added by Discern Expert. Performed By: #### 2 059249, 3497087, 42724856, 3858055 ####[facility] [address] [place] [address] BMPon 03-05-2023 Anion gap [Moles/Vol] 9 mmol/L Normal 6-16 [facility] Comment on above: Performed By: #### 2 136992, 3326028, 10474871, 3295661 ####[facility] [address] [place] [address] Chloride [Moles/Vol] 101 mmol/L Normal 101-111 [facility] Comment on above: Performed By: #### 2 516887, 9699124, 57819947, 4591548 ####[facility] [address] [place] [address] CO2 [Moles/Vol] 26 mmol/L Normal 21-31 [facility] Comment on above: Performed By: #### 2 870951, 4936029, 69467383, 9188209 ####[facility] [address] [place] [address] Potassium [Moles/Vol] 3.6 mmol/L Normal 3.5-5.3 [facility] Comment on above: Performed By: #### 2 975969, 4978431, 94003055, 4093555 ####[address] [place] [address] Sodium [Moles/Vol] 132 mmol/L Low 135-145 [facility] Comment on above: Performed By: #### 2 590892, 3363626, 64339979, 2936912 ####[facility] [address] [place] [address] Urea nitrogen/Creatinine [Mass ratio] 26 No Units High 10-20 [facility] Comment on above: Performed By: #### 2 431424, 5153306, 73743241, 5606976 ####[facility] [address] [place] [address] BMPOrdered By: SYSTEM SYSTEM on 03-05-2023 Calcium [Mass/Vol] 8.0 mg/dL Low 8.9-11.1 [facility] Comment on above: Performed By: #### 2 516934, 1328366, 85714044, 5099021 ####[facility] [address] [place] [address] Creatinine [Mass/Vol] 0.5 mg/dL Normal 0.5-1.3 [facility] Comment on above: Performed By: #### 2 411921, 8897318, 90807406, 4957405 ####[facility] [address] [place] [address] Glucose [Mass/Vol] 125 mg/dL Normal 55-199 [facility] Comment on above: Result Comment: If t his glucose result represents a fasting glucose, interpretation should refer to the following reference range: 55-99 mg/dL Performed By: #### 2 022078, 3899317, 63673436, 5129410 ####[facility] [address] [place] [address] Urea nitrogen [Mass/Vol] 13 mg/dL Normal 5-21 [facility] Comment on above: Performed By: #### 2 004345, 9751001, 51441471, 0646178 ####[facility] [address] [place] [address] CBC w/ Auto DiffOrdered By: Yane Fitch on 03-05-2023 Erythrocyte distribution width (RBC) [Ratio] 18.2 % High 10.9-14.2 [facility] Comment on above: Performed By: #### 2 520404, 0513076, 01349526, 5143988 ####[place] [address] [address] Hematocrit (Bld) [Volume fraction] 25.1 % Low 37.7-49.0 [facility] Comment on above: Performed By: #### 2 306950, 7144585, 99448878, 8184029 ####[place] [address] [address] Hemoglobin (Bld) [Mass/Vol] 8.2 g/dL Low 13.5-17.5 [facility] Comment on above: Performed By: #### 2 954839, 3720740, 84246988, 9794933 ####[place] [address] [address] MCH (RBC) [Entitic mass] 27.4 pg Normal 27.0-34.0 [facility] Comment on above: Performed By: #### 2 309266, 6821314, 80718013, 7311211 ####[place] [address] [address] MCHC (RBC) [Mass/Vol] 32.6 g/dL Normal 31.4-36.0 [facility] Comment on above: Performed By: #### 2 197371, 1226845, 76265411, 8120507 ####[place] [address] [address] MCV (RBC) [Entitic vol] 84.1 fL Normal 80.0-100.0 F [facility] Comment on above: Performed By: #### 2 045861, 4577605, 90584494, 3615590 ####[facility] [address] [address] Platelet mean volume (Bld) [Entitic vol] 8.4 fL Normal 6.4-10.8 [facility] Comment on above: Performed By: #### 2 295864, 6924977, 75325325, 0933947 ####[facility] [address] [place] [address] Platelets (Bld) [#/Vol] 177.0 E9/L Normal 150.0-500.0 [facility] Comment on above: Performed By: #### 2 135811, 8706749, 59572958, 6415160 ####[address] [address] RBC (Bld) [#/Vol] 3.0 E12/L Low 4.3-5.9 [facility] Comment on above: Performed By: #### 2 952507, 6685460, 31912645, 4665191 ####[address] [address] WBC corrected for nucl RBC Auto (Bld) [#/Vol] 6.5 E9/L Normal 4.0-11.0 [facility] Comment on above: Performed By: #### 2 961551, 6772211, 92809059, 9422592 ####[address] [address] CHEMISTRYOrdered By: SYSTEM SYSTEM on 03-05-2023 Urea nitrogen/Creatinine [Mass ratio] 26 mg/mg High 10 - 20 [facility] Remisol Capillary Glucose POCon 02-08 Glucose [Mass/Vol] 158 mg/dL High 55-99 [facility] Comment on above: Result Comment: Nuno MARIN Performed By: #### 2 [id number] ####[address] [address] Glucose [Mass/Vol] 130 mg/dL High 55-99 [facility] Comment on above: Result Comment: Nuno MARIN Performed By: #### 2 [id number] ####[address] [address] Glucose [Mass/Vol] 166 mg/dL High 55-99 [facility] Comment on above: Result Comment: Nuno MARIN Performed By: #### 2 09284520 ####[facility] [address] [place] [address] Glucose [Mass/Vol] 174 mg/dL High 55-99 [facility] Comment on above: Result Comment: Nuno MARIN Performed By: #### 2 81146609 ####[facility] [address] [place] [address] Interdisciplinary Note - Michelet e Manageron 03-05-2023 Interdisciplinary Note - Blanchard Grinder Operator Normal [facility] Comment on above: Result Comment: Elec tronically Signed By: Chong GUARDADO, Leona\.br\Date and Time Signed: 03/05/23 11:48 EDT Progress Note-Physicianon Progress Note-Physician Normal F [facility] Comment on above: Result Comment: Elec tronically Signed By: Jovanny WISE, Savage Castillo\.br\Date and Time Signed: 03/05/23 12:19 EDT eGFROrdered By: SYSTEM SYSTE M on 03-05-2023 GFR/1.73 sq M.predicted among non-blacks MDRD (S/P/Bld) [Vol rate/Area] 106 mL/min/1.73 m2 Normal >=59 [facility] Chem S Comment on above: Order Comment: Order added by Discern Expert. Result Comment: Donkey Engine Firer/Fireman alen kidney disease could be indicated at eGFR's of less than 60 mL/min/1.73m2. Kidney failure is indicated at less than 15 mL/min/1.73m2. Performed By: #### 2 235990, 6983558, 42179853, 9143016 ####[facility] [address] [place] [address] Auto DiffOrdered By: SYSTEM SYSTEM on 03-04-2023 Basophils/100 WBC (Bld) 1.3 % Normal 0.0-2.0 [facility] Comment on above: Order Comment: Order Added by Discern Expert. Performed By: #### 2 485956, 8679608, 24244201, 1974907 ####[facility] [address] [place] [address] Basophils/Leukocytes Auto (Bld) [Pure # fraction] 0.1 E9/L Normal 0.0-0.2 [facility] Comment on above: Order Comment: Order Added by Discern Expert. Performed By: #### 2 167648, 7678360, 65072065, 1497250 ####[address] [address] Eosinophils/100 WBC (Bld) 0.0 % Normal 0.0-8.0 [facility] Comment on above: Order Comment: Order Added by Discern Expert. Performed By: #### 2 130302, 9166675, 23447672, 3929894 ####[address] [address] Eosinophils/Leukocytes Auto (Bld) [Pure # fraction] 0.0 E9/L Normal 0.0-0.5 [facility] Comment on above: Order Comment: Order Added by Discern Expert. Performed By: #### 2 232573, 5198255, 64071602, 3703209 ####[address] [address] Lymphocytes/100 WBC (Bld) 4.6 % Low 14.0-50.0 [facility] Comment on above: Order Comment: Order Added by Discern Expert. Performed By: #### 2 888244, 2358229, 73807346, 7685196 ####[address] [address] Lymphocytes/Leukocytes Auto (Bld) [Pure # fraction] 0.4 E9/L Low 1.0-4.0 [facility] Comment on above: Order Comment: Order Added by Discern Expert. Performed By: #### 2 690870, 7873884, 86151042, 9280261 ####[address] [address] Monocytes/100 WBC (Bld) 9.5 % Normal 4.0-14.0 F [facility] Comment on above: Order Comment: Order Added by Discern Expert. Performed By: #### 2 163187, 4037692, 86130092, 2608863 ####[facility] [address] [place] [address] Monocytes/Leukocytes Auto (Bld) [Pure # fraction] 0.9 E9/L Normal 0.2-1.0 [facility] Comment on above: Order Comment: Order Added by Discern Expert. Performed By: #### 2 501359, 7763325, 81194058, 4942223 ####[place] [address] [address] Neutrophils/100 WBC (Bld) 84.6 % High 36.0-75.0 [facility] Comment on above: Order Comment: Order Added by Discern Expert. Performed By: #### 2 680184, 6136103, 88619794, 3199174 ####[facility] [address] [address] Neutrophils/Leukocytes Auto (Bld) [Pure # fraction] 8.0 E9/L High 2.0-7.5 [facility] Comment on above: Order Comment: Order Added by Discern Expert. Performed By: #### 2 732225, 1236315, 73173857, 2975901 ####[place] [address] [address] BMP 03-04-2023 Anion gap [Moles/Vol] 7 mmol/L Normal 6-16 [facility] Comment on above: Order Comment: line packet dropped off to floor...[facility] 03/04/2023 05:14:11 EDT Performed By: #### 2 053047, 5686058, 14602143, 7605334 ####[facility] [address] [place] [address] Chloride [Moles/Vol] 102 mmol/L Normal 101-111 [facility] Comment on above: Order Comment: line packet dropped off to floor...[facility] 03/04/2023 05:14:11 EDT Performed By: #### 2 726988, 3501502, 08246017, 0029213 ####[place] [address] [address] CO2 [Moles/Vol] 27 mmol/L Normal 21-31 [facility] Comment on above: Order Comment: line packet dropped off to floor...[facility] 03/04/2023 05:14:11 EDT Performed By: #### 2 346902, 6645768, 68543981, 3787711 ####[facility] [address] [place] [address] Potassium [Moles/Vol] 4.0 mmol/L Normal 3.5-5.3 [facility] Comment on above: Order Comment: line packet dropped off to floor...[facility] 03/04/2023 05:14:11 EDT Performed By: #### 2 513822, 6860572, 94984127, 6326939 ####[facility] [address] [place] [address] Sodium [Moles/Vol] 132 mmol/L Low 135-145 [facility] Comment on above: Order Comment: line packet dropped off to floor...[facility] 03/04/2023 05:14:11 EDT Performed By: #### 2 157524, 3132021, 51687446, 6609635 ####[facility] [address] [place] [address] Urea nitrogen/Creatinine [Mass ratio] 34 No Units High 10-20 [facility] Comment on above: Order Comment: line packet dropped off to floor...[facility] 03/04/2023 05:14:11 EDT Performed By: #### 2 073213, 5481905, 43648302, 6328217 ####[facility] [address] [place] [address] BMPOrdered By: SYSTEM SYSTEM on 03-04-2023 Calcium [Mass/Vol] 8.1 mg/dL Low 8.9-11.1 [facility] Remisol Comment on above: Order Comment: line packet dropped off to floor...[facility] 03/04/2023 05:14:11 EDT Performed By: #### 2 577031, 4831678, 83552600, 9254501 ####[facility] [address] [place] [address] Creatinine [Mass/Vol] 0.5 mg/dL Normal 0.5-1.3 [facility] Comment on above: Order Comment: line packet dropped off to floor...[facility] 03/04/2023 05:14:11 EDT Performed By: #### 2 711158, 9948847, 57371999, 3565011 ####[place] [address] [place] [address] Glucose [Mass/Vol] 129 mg/dL Normal 55-199 [facility] Remisol Comment on above: Order Comment: line packet dropped off to floor...[facility] 03/04/2023 05:14:11 EDT Result Comment: If t his glucose result represents a fasting glucose, interpretation should refer to the following reference range: 55-99 mg/dL Performed By: #### 2 496285, 4624107, 75914237, 6691594 ####[place] [address] [address] Urea nitrogen [Mass/Vol] 17 mg/dL Normal 5-21 [facility] Comment on above: Order Comment: line packet dropped off to floor...[facility] 03/04/2023 05:14:11 EDT Performed By: #### 2 839316, 2483784, 54181862, 2280851 ####[place] [address] [address] CBC w/ Auto DiffOrdered By: Yane Fitch on 03-04-2023 Erythrocyte distribution width (RBC) [Ratio] 17.9 % High 10.9-14.2 [facility] Comment on above: Performed By: #### 2 317164, 4585262, 69052438, 7351724 ####[place] [address] [address] Hematocrit (Bld) [Volume fraction] 26.9 % Low 37.7-49.0 [facility] Comment on above: Performed By: #### 2 680384, 9529855, 34815548, 8507664 ####[address] [address] Hemoglobin (Bld) [Mass/Vol] 8.8 g/dL Low 13.5-17.5 [facility] Comment on above: Performed By: #### 2 259026, 6949459, 46872104, 7131365 ####[address] [address] MCH (RBC) [Entitic mass] 27.4 pg Normal 27.0-34.0 [facility] Comment on above: Performed By: #### 2 259870, 9522777, 24749579, 1431990 ####[address] [address] MCHC (RBC) [Mass/Vol] 32.8 g/dL Normal 31.4-36.0 [facility] Comment on above: Performed By: #### 2 489610, 7144422, 61295444, 6243472 ####[address] [address] MCV (RBC) [Entitic vol] 83.7 fL Normal 80.0-100.0 [facility] Comment on above: Performed By: #### 2 335951, 5133299, 04574436, 6594558 ####[address] [address] Platelet mean volume (Bld) [Entitic vol] 8.4 fL Normal 6.4-10.8 [facility] Comment on above: Performed By: #### 2 034038, 7850773, 42439331, 0606069 ####[address] [address] Platelets (Bld) [#/Vol] 185.0 E9/L Normal 150.0-500.0 [facility] Comment on above: Performed By: #### 2 568712, 9649605, 49472860, 4215695 ####[address] [address] RBC (Bld) [#/Vol] 3.2 E12/L Low 4.3-5.9 [facility] Comment on above: Performed By: #### 2 537703, 8189740, 55176916, 8169189 ####[facility] [address] [place] [address] WBC corrected for nucl RBC Auto (Bld) [#/Vol] 9.5 E9/L Normal 4.0-11.0 [facility] Comment on above: Performed By: #### 2 616512, 5605001, 06257052, 0470474 ####[facility] [address] [place] [address] CHEMISTRYOrdered By: SYSTEM SYSTEM on 03-04-2023 Urea nitrogen/Creatinine [Mass ratio] 34 mg/mg High 10 - [facility] Remisol Capillary Glucose POCon 02-08 Glucose [Mass/Vol] 123 mg/dL High 55-99 [facility] Comment on above: Result Comment: Nuno MARIN Performed By: #### 2 63401737 ####[address] [address] Glucose [Mass/Vol] 158 mg/dL High 55-99 [facility] Comment on above: Result Comment: Nuno MARIN Performed By: #### 2 12786466 ####[address] [place] [address] Glucose [Mass/Vol] 154 mg/dL High 55-99 [facility] Comment on above: Result Comment: Nuno MARIN Performed By: #### 2 24789576 ####[facility] [address] [place] [address] Glucose [Mass/Vol] 136 mg/dL High 55-99 [facility] Comment on above: Result Comment: Nuno MARIN Performed By: #### 2 03752534 ####[facility] [address] [place] [address] Consent for Anesthesiaon Consent for Anesthesia [id number] D:[address] [facility] Interdisciplinary Note - Michelet e Manageron 03-04-2023 Interdisciplinary Note - Blanchard Grinder Operator Normal [facility] Comment on above: Result Comment: Elec tronically Signed By: Alla Choe RN\.br\Date and Time Signed: 03/04/23 13:05 EDT Interdisciplinary Note - Alf singon 03-04-2023 Interdisciplinary Note - Nursing Patient dressing was changed as it come off with continued movement. Normal [facility] Interdisciplinary Note - Ashley n 03-04-2023 Interdisciplinary Note - OT Normal [facility] IntraOperative Documentson 0 03-04-2023 IntraOperative Documents [id number] D:[address] [facility] Main OR Intraoperative Recor don 03-04-2023 Main OR Intraoperative Record Normal [facility] Progress Note-Physicianon Progress Note-Physician Normal F [facility] Comment on above: Result Comment: Elec tronically Signed By: Katheryn WISE, Aiden\.br\Date and Time Signed: 03/04/23 21:12 EDT Progress Note-Physician Normal F [facility] Comment on above: Result Comment: Elec tronically Signed By: Chong Coe M.D\.br\Date and Time Signed: 03/04/23 09:39 EDT eGFROrdered By: LUZ Mckeon on 03-04-2023 GFR/1.73 sq M.predicted among non-blacks MDRD (S/P/Bld) [Vol rate/Area] 106 mL/min/1.73 m2 Normal >=59 [facility] Chem S Comment on above: Order Comment: Order added by Discern Expert. Result Comment: Donkey Engine Firer/Fireman alen kidney disease could be indicated at eGFR's of less than 60 mL/min/1.73m2. Kidney failure is indicated at less than 15 mL/min/1.73m2. Performed By: #### 2 786146, 3911093, 77614992, 9910008 ####[address] [place] [address] Auto Diffon 03-03-2023 Basophils/100 WBC (Bld) 2.3 % High 0.0-2.0 [facility] Comment on above: Order Comment: Order Added by Discern Expert. Performed By: #### 1 6155219, 4545009, 6479001, 2212323 ####[address] [place] [address] Basophils/Leukocytes Auto (Bld) [Pure # fraction] 0.2 E9/L Normal 0.0-0.2 [facility] Comment on above: Order Comment: Order Added by Discern Expert. Performed By: #### 1 8000083, 5854755, 0300611, 3264027 ####[address] [address] Eosinophils/100 WBC (Bld) 0.8 % Normal 0.0-8.0 [facility] Comment on above: Order Comment: Order Added by Discern Expert. Performed By: #### 1 6589925, 8975143, 3387754, 7595510 ####[address] [address] Eosinophils/Leukocytes Auto (Bld) [Pure # fraction] 0.1 E9/L Normal 0.0-0.5 [facility] Comment on above: Order Comment: Order Added by Discern Expert. Performed By: #### 1 7370005, 3349287, 9135190, 8484341 ####[address] [address] Lymphocytes/100 WBC (Bld) 5.9 % Low 14.0-50.0 [facility] Comment on above: Order Comment: Order Added by Discern Expert. Performed By: #### 1 4530952, 3345664, 5851962, 1855902 ####[address] [address] Lymphocytes/Leukocytes Auto (Bld) [Pure # fraction] 0.4 E9/L Low 1.0-4.0 [facility] Comment on above: Order Comment: Order Added by Discern Expert. Performed By: #### 1 1695590, 1602470, 3788734, 8649107 ####[facility] [address] [place] [address] Monocytes/100 WBC (Bld) 10.3 % Normal 4.0-14.0 F [facility] Comment on above: Order Comment: Order Added by Discern Expert. Performed By: #### 1 4782790, 4175334, 5401030, 5232640 ####[address] [place] [address] Monocytes/Leukocytes Auto (Bld) [Pure # fraction] 0.7 E9/L Normal 0.2-1.0 [facility] Comment on above: Order Comment: Order Added by Discern Expert. Performed By: #### 1 9770411, 4202113, 9824541, 6938685 ####[address] [place] [address] Neutrophils/100 WBC (Bld) 80.7 % High 36.0-75.0 [facility] Comment on above: Order Comment: Order Added by Discern Expert. Performed By: #### 1 8009666, 9950126, 4576671, 4988142 ####[facility] [address] [place] [address] Neutrophils/Leukocytes Auto (Bld) [Pure # fraction] 5.4 E9/L Normal 2.0-7.5 [facility] Comment on above: Order Comment: Order Added by Discern Expert. Performed By: #### 1 6755363, 7746950, 7715796, 4216939 ####[facility] [address] [place] [address] BMPon 03-03-2023 Anion gap [Moles/Vol] 7 mmol/L Normal 6-16 [facility] Comment on above: Performed By: #### 1 8033478, 5016183, 4054461, 6411994 ####[address] [place] [address] Calcium [Mass/Vol] 8.1 mg/dL Low 8.9-11.1 [facility] Comment on above: Performed By: #### 1 7601293, 6102549, 7367677, 3643522 ####[facility] [address] [place] [address] Chloride [Moles/Vol] 102 mmol/L Normal 101-111 [facility] Comment on above: Performed By: #### 1 0192879, 0297049, 1808370, 9394101 ####[facility] [address] [place] [address] CO2 [Moles/Vol] 27 mmol/L Normal 21-31 [facility] Comment on above: Performed By: #### 1 0669105, 8086172, 6328664, 8574318 ####[facility] [address] [place] [address] Creatinine [Mass/Vol] 0.5 mg/dL Normal 0.5-1.3 [facility] Comment on above: Performed By: #### 1 1296587, 4175978, 9159429, 9026233 ####[facility] [address] [place] [address] Glucose [Mass/Vol] 125 mg/dL Normal 55-199 [facility] Comment on above: Result Comment: If t his glucose result represents a fasting glucose, interpretation should refer to the following reference range: 55-99 mg/dL Performed By: #### 1 5032549, 0361031, 2824094, 5415493 ####[facility] [address] [place] [address] Potassium [Moles/Vol] 3.7 mmol/L Normal 3.5-5.3 [facility] Comment on above: Performed By: #### 1 2147590, 2603802, 0351706, 8349406 ####[facility] [address] [place] [address] Sodium [Moles/Vol] 132 mmol/L Low 135-145 [facility] Comment on above: Performed By: #### 1 6030687, 7754378, 0074167, 3648853 ####[facility] [address] [place] [address] Urea nitrogen [Mass/Vol] 20 mg/dL Normal 5-21 [facility] Comment on above: Performed By: #### 1 0814046, 6663792, 7490371, 5890207 ####[place] [address] [place] [address] Urea nitrogen/Creatinine [Mass ratio] 40 No Units High 10-20 [facility] Comment on above: Performed By: #### 1 1987985, 0761797, 0481482, 4044059 ####[place] [address] [place] [address]25[address] CBC w/ Auto Diffon 3 Erythrocyte distribution width (RBC) [Ratio] 18.1 % High 10.9-14.2 [facility] Comment on above: Performed By: #### 1 3636554, 5681385, 2899826, 5750776 ####[place] [address] [place] [address] Hematocrit (Bld) [Volume fraction] 26.1 % Low 37.7-49.0 [facility] Comment on above: Performed By: #### 1 4266297, 3594497, 9959270, 0094221 ####[place] [address] [place] [address] Hemoglobin (Bld) [Mass/Vol] 8.6 g/dL Low 13.5-17.5 [facility] Comment on above: Performed By: #### 1 7436003, 8652660, 3787215, 9960889 ####[address] [address] MCH (RBC) [Entitic mass] 27.1 pg Normal 27.0-34.0 [facility] Comment on above: Performed By: #### 1 4621765, 6334195, 1273895, 6740306 ####[place] [address] [place] [address] MCHC (RBC) [Mass/Vol] 32.9 g/dL Normal 31.4-36.0 [facility] Comment on above: Performed By: #### 1 9236001, 8657117, 1942662, 8610282 ####[facility] [address] [place] [address] MCV (RBC) [Entitic vol] 82.4 fL Normal 80.0-100.0 [facility] Comment on above: Performed By: #### 1 2049024, 2706983, 1910307, 1966752 ####[place] [address] [place] [address] Platelet mean volume (Bld) [Entitic vol] 9.1 fL Normal 6.4-10.8 [facility] Comment on above: Performed By: #### 1 7838611, 1171978, 0185123, 4035047 ####[address] [address] Platelets (Bld) [#/Vol] 169.0 E9/L Normal 150.0-500.0 [facility] Comment on above: Performed By: #### 1 8229267, 0676324, 4799512, 4389555 ####[address] [address] RBC (Bld) [#/Vol] 3.2 E12/L Low 4.3-5.9 [facility] Comment on above: Performed By: #### 1 9418723, 7070180, 2698008, 8940593 ####[address] [address] WBC corrected for nucl RBC Auto (Bld) [#/Vol] 6.7 E9/L Normal 4.0-11.0 [facility] Comment on above: Performed By: #### 1 9739225, 6743773, 3238870, 5905853 ####[address] [address] Capillary Glucose POCon 02-08 Glucose [Mass/Vol] 235 mg/dL High 55-99 [facility] Comment on above: Result Comment: Nuno aranda RN/ Performed By: #### 2 54853793 ####[address] [place] [address] Glucose [Mass/Vol] 215 mg/dL High 55-99 [facility] Comment on above: Result Comment: Nuno aranda RN/ Performed By: #### 2 33202247 ####[facility] [address] [place] [address] Glucose [Mass/Vol] 111 mg/dL High 55-99 [facility] Comment on above: Result Comment: Nuno aranda RN/ Performed By: #### 2 07855082 ####[facility] [address] [place] [address] Glucose [Mass/Vol] 128 mg/dL High 55-99 [facility] Comment on above: Result Comment: Nuno aranda RN/ Performed By: #### 2 91582647 ####[facility] [address] [place] [address] Consent for Procedure/Surger yon 03-03-2023 Consent for Procedure/Surgery [id number]#1.00CD: [address] [facility] Discharge Instructionson Discharge Instructions [id number]#1.00CD :[address] 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 No family in room. Plan is to [facility] at discharge. Normal [facility] Comment on above: Result Comment: Elec tronically Signed By: Дмитрий GUARDADO, Alla\.br\Date and Time Signed: 03/03/23 11:35 EDT Main OR PACU I Recordon 02-08 Main OR PACU I Record Normal [facility] Main OR Preoperative Recordo n 03-03-2023 Main OR Preoperative Record Normal [facility] Monitor Recordon 03-03-2023 Monitor Record [id number]#1.00CD :[address] [facility] Monitor Record [id number]#1.00CD :[address] [facility] Monitor Record [id number]#1.00CD :[address] [facility] Progress Note-Physicianon Progress Note-Physician Normal F [facility] Comment on above: Result Comment: Elec tronically Signed By: Katheryn WISE, Aiden\.br\Date and Time Signed: 03/03/23 18:30 EDT eGFRon 03-03-2023 GFR/1.73 sq M.predicted among non-blacks MDRD (S/P/Bld) [Vol rate/Area] 106 mL/min/1.73 m2 Normal >=59 [facility] Comment on above: Order Comment: Order added by Discern Expert. Result Comment: Donkey Engine Firer/Fireman alen kidney disease could be indicated at eGFR's of less than 60 mL/min/1.73m2. Kidney failure is indicated at less than 15 mL/min/1.73m2. Performed By: #### 1 4130846, 7807857, 3806858, 3165306 ####[facility] [address] [place] [address] Auto Diffon 03-02-2023 Basophils/100 WBC (Bld) 1.0 % Normal 0.0-2.0 [facility] Comment on above: Order Comment: Order Added by Discern Expert. Performed By: #### 2 466342, 9916900, 8145976, 87647515, 1468112 ####[facility] [address] [place] [address] Basophils/Leukocytes Auto (Bld) [Pure # fraction] 0.1 E9/L Normal 0.0-0.2 [facility] Comment on above: Order Comment: Order Added by Discern Expert. Performed By: #### 2 582331, 4671458, 3732419, 54307077, 2755750 ####[facility] [address] [place] [address] Eosinophils/100 WBC (Bld) 0.2 % Normal 0.0-8.0 [facility] Comment on above: Order Comment: Order Added by Discern Expert. Performed By: #### 2 551030, 2822805, 5082731, 26149706, 8732123 ####[facility] [address] [place] [address] Eosinophils/Leukocytes Auto (Bld) [Pure # fraction] 0.0 E9/L Normal 0.0-0.5 [facility] Comment on above: Order Comment: Order Added by Discern Expert. Performed By: #### 2 618921, 4318075, 8046742, 64015331, 4243386 ####[place] [address] [place] [address] Lymphocytes/100 WBC (Bld) 4.7 % Low 14.0-50.0 [facility] Comment on above: Order Comment: Order Added by Cristiano Expert. Performed By: #### 2 205131, 6224547, 6026768, 86582280, 4264939 ####[address] [address] Lymphocytes/Leukocytes Auto (Bld) [Pure # fraction] 0.3 E9/L Low 1.0-4.0 [facility] Comment on above: Order Comment: Order Added by Cristiano Expert. Performed By: #### 2 758011, 7017329, 3232492, 27551955, 1514628 ####[address] [address] Monocytes/100 WBC (Bld) 10.1 % Normal 4.0-14.0 [facility] Comment on above: Order Comment: Order Added by Cristiano Expert. Performed By: #### 2 657249, 8356129, 7902117, 77977332, 8734432 ####[address] [address] Monocytes/Leukocytes Auto (Bld) [Pure # fraction] 0.7 E9/L Normal 0.2-1.0 [facility] Comment on above: Order Comment: Order Added by Cristiano Expert. Performed By: #### 2 490244, 7482276, 3834305, 95499657, 6904052 ####[facility] [address] [place] [address] Neutrophils/100 WBC (Bld) 84.0 % High 36.0-75.0 [facility] Comment on above: Order Comment: Order Added by Discern Expert. Performed By: #### 2 150354, 0471056, 4670543, 44523191, 0161051 ####[facility] [address] [place] [address] Neutrophils/Leukocytes Auto (Bld) [Pure # fraction] 5.6 E9/L Normal 2.0-7.5 [facility] Comment on above: Order Comment: Order Added by Discern Expert. Performed By: #### 2 399409, 6555905, 4298471, 07829481, 5935822 ####[facility] [address] [place] [address] BMPon 03-02-2023 Anion gap [Moles/Vol] 8 mmol/L Normal 6-16 [facility] Comment on above: Order Comment: line packet sent up to floor...[facility] 03/02/2023 05:13:13 EDT Performed By: #### 2 682759, 5065563, 8336792, 45644611, 2439876 ####[facility] [address] [place] [address] Calcium [Mass/Vol] 8.1 mg/dL Low 8.9-11.1 [facility] Comment on above: Order Comment: line packet sent up to floor...[facility] 03/02/2023 05:13:13 EDT Performed By: #### 2 189128, 4084867, 1492283, 78705907, 2903658 ####[facility] [address] [place] [address] Chloride [Moles/Vol] 102 mmol/L Normal 101-111 [facility] Comment on above: Order Comment: line packet sent up to floor...[facility] 03/02/2023 05:13:13 EDT Performed By: #### 2 805892, 3153784, 8410903, 23662134, 5654060 ####[facility] [address] [place] [address] CO2 [Moles/Vol] 27 mmol/L Normal 21-31 [facility] Comment on above: Order Comment: line packet sent up to floor...[facility] 03/02/2023 05:13:13 EDT Performed By: #### 2 204699, 5832696, 2925432, 39930003, 7164866 ####[facility] [address] [place] [address] Creatinine [Mass/Vol] 0.6 mg/dL Normal 0.5-1.3 [facility] Comment on above: Order Comment: line packet sent up to floor...[facility] 03/02/2023 05:13:13 EDT Performed By: #### 2 891876, 7903202, 1162107, 92710997, 5771757 ####[facility] [address] [place] [address] Glucose [Mass/Vol] 132 mg/dL Normal 55-199 [facility] Comment on above: Order Comment: line packet sent up to floor...[facility] 03/02/2023 05:13:13 EDT Result Comment: If t his glucose result represents a fasting glucose, interpretation should refer to the following reference range: 55-99 mg/dL Performed By: #### 2 797467, 7985532, 0310131, 92811944, 7158230 ####[facility] [address] [place] [address] Potassium [Moles/Vol] 3.9 mmol/L Normal 3.5-5.3 [facility] Comment on above: Order Comment: line packet sent up to floor...[facility] 03/02/2023 05:13:13 EDT Performed By: #### 2 208635, 4471736, 5273940, 77635862, 5378349 ####[facility] [address] [place] [address] Sodium [Moles/Vol] 133 mmol/L Low 135-145 [facility] Comment on above: Order Comment: line packet sent up to floor...[facility] 03/02/2023 05:13:13 EDT Performed By: #### 2 740049, 1264692, 3296271, 01250332, 2083466 ####[facility] [address] [place] [address] Urea nitrogen [Mass/Vol] 19 mg/dL Normal 5-21 [facility] Comment on above: Order Comment: line packet sent up to floor...[facility] 03/02/2023 05:13:13 EDT Performed By: #### 2 123684, 2396017, 7025318, 86401579, 8475347 ####[facility] [address] [place] [address] Urea nitrogen/Creatinine [Mass ratio] 32 No Units High 10-20 [facility] Comment on above: Order Comment: line packet sent up to floor...[facility] 03/02/2023 05:13:13 EDT Performed By: #### 2 638957, 0320005, 7169243, 55052569, 4835927 ####[facility] [address] [place] [address] CBC w/ Auto Diffon 3 Erythrocyte distribution width (RBC) [Ratio] 17.5 % High 10.9-14.2 [facility] Comment on above: Performed By: #### 2 165365, 8538810, 2010064, 96809337, 2959911 ####[facility] [address] [place] [address] Hematocrit (Bld) [Volume fraction] 25.4 % Low 37.7-49.0 [facility] Comment on above: Performed By: #### 2 583052, 0538970, 2605177, 77643819, 0180158 ####[facility] [address] [place] [address] Hemoglobin (Bld) [Mass/Vol] 8.3 g/dL Low 13.5-17.5 [facility] Comment on above: Performed By: #### 2 331012, 2226749, 5835297, 03043910, 8744691 ####[facility] [address] [place], [place] [address] MCH (RBC) [Entitic mass] 26.9 pg Low 27.0-34.0 [facility] Comment on above: Performed By: #### 2 024629, 8268597, 7525681, 62359364, 0426198 ####[place] [address] MCHC (RBC) [Mass/Vol] 32.7 g/dL Normal 31.4-36.0 [facility] Comment on above: Performed By: #### 2 313409, 6202408, 6166399, 94486861, 5739994 ####[place] [address] MCV (RBC) [Entitic vol] 82.3 fL Normal 80.0-100.0 F [facility] Comment on above: Performed By: #### 2 090700, 3113245, 7862563, 40533807, 4456369 ####[place] [address] Platelet mean volume (Bld) [Entitic vol] 8.5 fL Normal 6.4-10.8 [facility] Comment on above: Performed By: #### 2 894797, 2222008, 6660062, 96290723, 4376704 ####[place] [address] Platelets (Bld) [#/Vol] 152.0 E9/L Normal 150.0-500.0 [facility] Comment on above: Performed By: #### 2 639931, 1059975, 8781557, 10685035, 8382795 ####[address] [address] RBC (Bld) [#/Vol] 3.1 E12/L Low 4.3-5.9 [facility] Comment on above: Performed By: #### 2 918060, 2266199, 9802535, 37322019, 2095518 ####[facility] [address] [place] [address] WBC corrected for nucl RBC Auto (Bld) [#/Vol] 6.7 E9/L Normal 4.0-11.0 [facility] Comment on above: Performed By: #### 2 644207, 9960465, 4635890, 71629442, 5779590 ####[facility] [address] [place] [address] CHEMISTRYOrdered By: SYSTEM SYSTEM on 03-02-2023 CK [Catalytic activity/Vol] 197 [iU]/d Normal 14 - 261 Int._Unit/L [facility] Remisol CKon 03-02-2023 CK [Catalytic activity/Vol] 197 Int._Unit/L Normal 14-261 [facility] Comment on above: Performed By: #### 2 271231, 1692990, 5561811, 31271826, 0302066 ####[facility] [address] [place] [address] Capillary Glucose POCon 02-08 Glucose [Mass/Vol] 98 mg/dL Normal 55-99 [facility] Comment on above: Result Comment: Nuno MARIN Performed By: #### 2 36729752 ####[facility] [address] [place] [address] Glucose [Mass/Vol] 96 mg/dL Normal 55-99 [facility] Comment on above: Result Comment: Nuno MARIN Performed By: #### 2 67232711 ####[facility] [address] [place] [address] Glucose [Mass/Vol] 164 mg/dL High 55-99 [facility] Comment on above: Result Comment: Nuno MARIN Performed By: #### 2 67441982 ####[facility] [address] [place] [address] Glucose [Mass/Vol] 112 mg/dL High 55-99 [facility] Comment on above: Result Comment: Nuno aranda RN/ Performed By: #### 2 98679873 ####[facility] [address] [place] [address] Glucose [Mass/Vol] 111 mg/dL High 55-99 [facility] Comment on above: Result Comment: Nuno MARIN Performed By: #### 2 57350975 ####[facility] [address] [place] [address] Ferritinon 03-02-2023 Ferritin [Mass/Vol] 86 ng/mL [facility] 24-[facility] Comment on above: Result Comment: NORM ALS MEN <30 YRS 16-132 ng/mL MEN >30 YRS 8-338 ng/mL WOMEN (PREMEN) 6-104 ng/mL WOMEN (POSTMEN) 12-210 ng/mL Performed By: #### 2 127980, 2026534, 12492435, 6925711, 7533850, 3627910, 97054422, 31686350, 6118492, 87177232 ####[facility] [address] [place] [address] Folateon 03-02-2023 Folate [Mass/Vol] 19.8 ng/mL Normal >=6.7 [facility] Comment on above: Performed By: #### 2 881275, 1149474, 30714692, 3627157, 6462858, 0566138, 59774998, 97834307, 7146286, 06850645 ####[facility] [address] [place] [address] Interdisciplinary Note - Michelet e Manageron 03-02-2023 Interdisciplinary Note - Blanchard Grinder Operator Normal [facility] Comment on above: Result Comment: Elec tronically Signed By: Leona Schwarz RN\.br\Date and Time Signed: 03/02/23 11:48 EDT Progress Note-Physicianon Progress Note-Physician Normal F [facility] Comment on above: Result Comment: Elec tronically Signed By: Lynda Carrero RN\.br\Date and Time Signed: 03/02/23 09:23 EDT\.br\Electronically Co-Signed By: Andrea Lomax MD\.br\Date and Time Co-Signed: 03/02/23 09:35 EDT Vit B12on 03-02-2023 Cobalamin (Vitamin B12) [Mass/Vol] 1175 pg/mL Normal 50-1500 [facility] Comment on above: Performed By: #### 2 637300, 97221484, 2471859, 83389755, 5775967, 61091188, 63508104, 7225091 ####[facility] [address] [place] [address] eGFRon 03-02-2023 GFR/1.73 sq M.predicted among non-blacks MDRD (S/P/Bld) [Vol rate/Area] 100 mL/min/1.73 m2 Normal >=59 [facility] Comment on above: Order Comment: Order added by Discern Expert. Result Comment: Donkey Engine Firer/Fireman alen kidney disease could be indicated at eGFR's of less than 60 mL/min/1.73m2. Kidney failure is indicated at less than 15 mL/min/1.73m2. Performed By: #### 2 476799, 7912481, 5132527, 54382133, 1276835 ####[facility] [address] [place] [address] ABO/Rhon 03-01-2023 ABO/Rh Positive Invalid Interpretation Code [facility] Comment on above: Performed By: #### 2 740818, 9650870, 97011820, 3896665, 2865825, 0949072, 19550940, 80527214, 6106044, 66235546 ####[facility] [address] [place] [address] ABO/Rh History Checkon 03-01 ABO/Rh History Check Type verified by se cond s Normal [facility] Comment on above: Performed By: #### 2 613335, 4724140, 46654711, 6795420, 5036328, 4268130, 75086449, 24261468, 2132430, 70529101 ####[facility] [address] [place] [address] ABO/Rh Retypeon 03-01-2023 ABO/Rh Retype Interp Positive Invalid Interpretation Code [facility] Comment on above: Performed By: #### 2 004764, 04489138, 0301072, 90280817, 6009921, 94860309, 78918976, 5903786 ####[facility] [address] [place] [address] ABSCon 03-01-2023 ABSC Gel Interp Negative Normal [facility] Comment on above: Performed By: #### 2 123608, 8595593, 67278031, 8377642, 4261292, 8433031, 97365891, 00753401, 0125201, 18461125 ####[facility] [address] [place] [address] Auto Diffon 03-01-2023 Basophils/100 WBC (Bld) 0.6 % Normal 0.0-2.0 [facility] Comment on above: Order Comment: Order Added by Discern Expert. Performed By: #### 2 433295, 92193520, 5627424, 21387146, 5914980, 26097201, 50481509, 2972235 ####[facility] [address] [place] [address] Basophils/Leukocytes Auto (Bld) [Pure # fraction] 0.0 E9/L Normal 0.0-0.2 [facility] Comment on above: Order Comment: Order Added by Discern Expert. Performed By: #### 2 718748, 82129503, 6107092, 91837042, 9793031, 71542266, 14436174, 0195413 ####[facility] [address] [place] [address] Eosinophils/100 WBC (Bld) 0.5 % Normal 0.0-8.0 [facility] Comment on above: Order Comment: Order Added by Discern Expert. Performed By: #### 2 067110, 64191787, 1244465, 11788278, 2924299, 53992071, 32658258, 1706006 ####[place] [address] [place] [address] Eosinophils/Leukocytes Auto (Bld) [Pure # fraction] 0.0 E9/L Normal 0.0-0.5 [facility] Comment on above: Order Comment: Order Added by Discern Expert. Performed By: #### 2 901062, 12905643, 6256862, 01801989, 0585498, 59297776, 35581868, 1506614 ####[address] [address] Lymphocytes/100 WBC (Bld) 8.7 % Low 14.0-50.0 [facility] Comment on above: Order Comment: Order Added by Discern Expert. Performed By: #### 2 404515, 38136992, 9521918, 61419583, 5826804, 14421220, 85948841, 7613256 ####[address] [address] Lymphocytes/Leukocytes Auto (Bld) [Pure # fraction] 0.5 E9/L Low 1.0-4.0 [facility] Comment on above: Order Comment: Order Added by Discern Expert. Performed By: #### 2 985838, 92310455, 8556085, 84792473, 8739567, 80119413, 97025632, 4602818 ####[address] [address] Monocytes/100 WBC (Bld) 11.3 % Normal 4.0-14.0 [facility] Comment on above: Order Comment: Order Added by Discern Expert. Performed By: #### 2 916242, 02886117, 8327826, 79794868, 0842226, 04013231, 57060981, 1682512 ####[address] [address] Monocytes/Leukocytes Auto (Bld) [Pure # fraction] 0.6 E9/L Normal 0.2-1.0 [facility] Comment on above: Order Comment: Order Added by Discern Expert. Performed By: #### 2 700322, 12701579, 7595951, 37993585, 6072639, 26601524, 67708406, 4899303 ####[facility] [address] [place] [address] Neutrophils/100 WBC (Bld) 78.9 % High 36.0-75.0 [facility] Comment on above: Order Comment: Order Added by Discern Expert. Performed By: #### 2 641428, 76366747, 2448485, 11135728, 2087708, 42086457, 68607600, 9325116 ####[facility] [address] [place] [address] Neutrophils/Leukocytes Auto (Bld) [Pure # fraction] 4.3 E9/L Normal 2.0-7.5 [facility] Comment on above: Order Comment: Order Added by Discern Expert. Performed By: #### 2 697369, 86316671, 4995470, 10318831, 5044976, 55534409, 53482421, 8260971 ####[facility] [address] [place] [address] BLOOD BANKOrdered By: Fabi Massey on 03-01-2023 ABO/Rh Interp Positive Invalid Interpretation Code [facility] BB Subsection ABSC Gel Interp Negative (03/01/23 8:13 AM) Normal [facility] BB Subsection ABO/Rh Retype Interp Positive Invalid Interpretation Code [facility] BB Subsection Blood Bank ID#on 03-01-2023 BBID# [id number] Invalid Interpretation Code [facility] Comment on above: Performed By: #### 2 858236, 5642202, 28924562, 7953601, 8910994, 9277549, 12123716, 48206701, 9207064, 38021155 ####[facility] [address] [place] [address] CBC w/ Auto Diffon 3 Erythrocyte distribution width (RBC) [Ratio] 19.2 % High 10.9-14.2 [facility] Comment on above: Performed By: #### 2 592093, 79212177, 9447240, 30154961, 4110740, 81354942, 25690422, 8713080 ####[facility] [address] [place] [address] Hematocrit (Bld) [Volume fraction] 19.9 % Low 37.7-49.0 [facility] Comment on above: Performed By: #### 2 274812, 39572319, 6947284, 64152040, 7489888, 07769311, 89177334, 5109200 ####[facility] [address] [place] [address] Hemoglobin (Bld) [Mass/Vol] 6.5 g/dL Abnormal 13.5-17.5 [facility] Comment on above: Result Comment: Resu lts Called To Isaac/Angela Mendez By _ And Read Back For Confirmation On 03/01/2023 07:50:53 EDTResults Verified By Repeat Analysis Performed By: #### 2 323798, 63515600, 0111461, 69020267, 2082209, 37711817, 69795915, 8539259 ####[facility] [address] [place] [address] MCH (RBC) [Entitic mass] 26.9 pg Low 27.0-34.0 [facility] Comment on above: Performed By: #### 2 652528, 09645706, 4112724, 85480905, 3301999, 01893833, 31985467, 8649735 ####[facility] [address] [place] [address] MCHC (RBC) [Mass/Vol] 32.6 g/dL Normal 31.4-36.0 Fis [facility] Comment on above: Performed By: #### 2 273091, 62734311, 9571429, 73470079, 8906882, 47411448, 87911417, 1314889 ####[facility] [address] [place] [address] MCV (RBC) [Entitic vol] 82.3 fL Normal 80.0-100.0 F [facility] Comment on above: Performed By: #### 2 820039, 63192256, 5740097, 86181294, 7060723, 49615227, 58890515, 6327738 ####[facility] [address] [place] [address] Platelet mean volume (Bld) [Entitic vol] 8.9 fL Normal 6.4-10.8 [facility] Comment on above: Performed By: #### 2 541851, 65322640, 4988205, 72969793, 0475911, 89887248, 01591675, 4100390 ####[facility] [address] [place] [address] Platelets (Bld) [#/Vol] 161.0 E9/L Normal 150.0-500.0 [facility] Comment on above: Performed By: #### 2 652434, 44191510, 0967477, 17060885, 7974386, 58411765, 22055961, 9873403 ####[address] [address] RBC (Bld) [#/Vol] 2.4 E12/L Low 4.3-5.9 [facility] Comment on above: Performed By: #### 2 644725, 09374969, 4415475, 20312488, 1982657, 48855715, 42989770, 4245361 ####[address] [place] [address] WBC corrected for nucl RBC Auto (Bld) [#/Vol] 5.5 E9/L Normal 4.0-11.0 [facility] Comment on above: Performed By: #### 2 732761, 26026549, 8251719, 80411243, 0908984, 99122235, 07184022, 5392676 ####[facility] [address] [place] [address] CHEMISTRYOrdered By: SYSTEM SYSTEM on 03-01-2023 Ferritin [...] 03-01-2023 Albumin [Mass/Vol] 2.2 g/dL Low 3.3-5.0 [facility] Comment on above: Performed By: #### 2 873745, 53373784, 8941437, 62483877, 7687584, 96632114, 23676806, 0698399 ####[facility] [address] [place] [address] Albumin/Globulin (S) [Mass conc ratio] 0.5 Low 1.1-2.2 [facility] Comment on above: Performed By: #### 2 385433, 08341768, 8004433, 16924439, 2423475, 06283016, 14211462, 4726963 ####[facility] [address] [place] [address] ALP [Catalytic activity/Vol] 77 Int._Unit/L Normal 21-98 [facility] Comment on above: Performed By: #### 2 611254, 70732350, 6464635, 30515858, 7494481, 80740462, 01174144, 2221259 ####[facility] [address] [place] [address] ALT No additional P-5'-P [Catalytic activity/Vol] 24 Int._Unit/L Normal 6-46 [facility] Comment on above: Performed By: #### 2 877538, 33087719, 3119598, 14930993, 8108643, 21151742, 76203017, 2951446 ####[facility] [address] [place] [address] Anion gap [Moles/Vol] 8 mmol/L Normal 6-16 [facility] Comment on above: Performed By: #### 2 185112, 78336401, 7852614, 97329868, 2023075, 08399525, 62445307, 6906885 ####[facility] [address] [place] [address] AST [Catalytic activity/Vol] 34 Int._Unit/L Normal 5-43 [facility] Comment on above: Performed By: #### 2 127872, 69500814, 1695011, 52826379, 4899301, 13395165, 91784513, 5433587 ####[facility] [address] [place] [address] Bilirubin [Mass/Vol] 0.6 mg/dL Normal 0.0-1.1 [facility] Comment on above: Performed By: #### 2 051121, 98026719, 6273412, 74497732, 9010461, 50677202, 48964469, 7128284 ####[facility] [address] [place] [address] Calcium [Mass/Vol] 8.1 mg/dL Low 8.9-11.1 [facility] Comment on above: Performed By: #### 2 812778, 28819042, 1068144, 52603312, 4115283, 38568735, 08145806, 0311681 ####[facility] [address] [place] [address] Chloride [Moles/Vol] 99 mmol/L Low 101-111 [facility] Comment on above: Performed By: #### 2 456594, 85288065, 4346693, 66333987, 7922899, 09692968, 43545245, 4129205 ####[facility] [address] [place] [address] CO2 [Moles/Vol] 28 mmol/L Normal 21-31 [facility] Comment on above: Performed By: #### 2 452339, 06166291, 4830761, 73671671, 9956832, 35193892, 03552853, 7248171 ####[facility] [address] [place] [address] Creatinine [Mass/Vol] 0.5 mg/dL Normal 0.5-1.3 [facility] Comment on above: Performed By: #### 2 496750, 35349850, 1171582, 63145619, 5823453, 72873869, 48694166, 5129389 ####[facility] [address] [place] [address] Globulin (S) [Mass/Vol] 4.1 g/dL High 1.4-4.0 F [facility] Comment on above: Performed By: #### 2 241641, 67148967, 7368855, 40892091, 4016415, 35633145, 20906121, 1803835 ####[facility] [address] [place] [address] Glucose [Mass/Vol] 110 mg/dL Normal 55-199 [facility] Comment on above: Result Comment: If t his glucose result represents a fasting glucose, interpretation should refer to the following reference range: 55-99 mg/dL Performed By: #### 2 440838, 10481606, 0938240, 01588321, 1641218, 61746311, 21001654, 9611253 ####[facility] [address] [place] [address] Potassium [Moles/Vol] 4.0 mmol/L Normal 3.5-5.3 [facility] Comment on above: Performed By: #### 2 635366, 01762826, 2142346, 37837311, 1727466, 26541731, 61188571, 0430988 ####[facility] [address] [place] [address] Protein [Mass/Vol] 6.3 g/dL Normal 6.0-7.8 [facility] Comment on above: Performed By: #### 2 232624, 01893882, 8147480, 02317739, 5208971, 48854411, 26145427, 6321075 ####[facility] [address] [place] [address] Sodium [Moles/Vol] 131 mmol/L Low 135-145 [facility] Comment on above: Performed By: #### 2 452268, 75038941, 3565895, 06301101, 6017376, 44382621, 39280364, 1158350 ####[facility] [address] [place] [address] Urea nitrogen [Mass/Vol] 22 mg/dL High 5-21 [facility] Comment on above: Performed By: #### 2 906805, 56519436, 7178978, 56604316, 0714501, 74603242, 80943636, 9200907 ####[facility] [address] [place] [address] Urea nitrogen/Creatinine [Mass ratio] 44 No Units High 10-20 [facility] Comment on above: Performed By: #### 2 861191, 12228193, 7239741, 42403468, 5220056, 59223872, 66471991, 0638856 ####[facility] [address] [place] [address] Capillary Glucose POCon 02-08 Glucose [Mass/Vol] 160 mg/dL High 55-99 [facility] Comment on above: Result Comment: Nuno MARIN Performed By: #### 2 10913588 ####[address] [address] Glucose [Mass/Vol] 110 mg/dL High 55-99 [facility] Comment on above: Result Comment: Nuno MARIN Performed By: #### 2 63306354 ####[facility] [address] [place] [address] Glucose [Mass/Vol] 173 mg/dL High 55-99 [facility] Comment on above: Result Comment: Nuno MARIN Performed By: #### 2 81805437 ####[facility] [address] [place] [address] Glucose [Mass/Vol] 128 mg/dL High 55-99 [facility] Comment on above: Result Comment: Nuno MARIN Performed By: #### 2 19415137 ####[facility] [address] [place] [address] Consultation Noteon 03-01-[address] [facility] Comment on above: Result Comment: Elec tronically Signed By: Win GUARDADO, Ольга Roman\.br\Date and Time Signed: 03/01/23 07:00 EDT\.br\Electronically Co-Signed By: Andrea Lomax MD\.br\Date and Time Co-Signed: 03/01/23 09:00 EDT HEMATOLOGYOrdered By: Fabi Herbert on 03-01-2023 Reticulocytes/100 RBC (Bld) 1.6 % High 0.5 - 1.5 % [facility] Comment on above: Result Comment: This Reticulocyte Count Has Been Corrected For Anemia Anisocytosis Ql (Bld) Present (03/01/23 5:30 AM) Normal [facility] HemeManSS Hypochromia Auto Ql (Bld) Present (03/01/23 5:30 AM) Normal [facility] HemeManSS Morphology Jah (Bld) [Interp] See Morphology (03/01/23 5:30 AM) Normal [facility] HemeManSS Interdisciplinary Note - Michelet e Manageron 03-01-2023 Interdisciplinary Note - Blanchard Grinder Operator Normal [facility] Comment on above: Result Comment: Elec tronically Signed By: Chong GUARDADO, Leona\.fabio\Date and Time Signed: 03/01/23 11:25 EDT Interdisciplinary Note - Soc ial Workeron 03-01-2023 Interdisciplinary Note - Industrial Relations Representative Normal [facility] Ironon 03-01-2023 Iron [Mass/Vol] 21 microgram/dL Low 35-153 Fish [facility] Comment on above: Performed By: #### 2 377406, 2271404, 95995344, 0562631, 1747967, 5661911, 13600223, 37990342, 1467317, 87132411 ####[facility] [address] [facility] [place] [address] LDHon 03-01-2023 LDH [Catalytic activity/Vol] 127 Int._Unit/L Normal 93-218 [facility] Comment on above: Performed By: #### 2 027313, 1242051, 80419360, 8408161, 0991002, 9434887, 16150068, 86188690, 8458563, 49637618 ####[facility] [address] [place] [address] MRI Brain w/o Contraston MRI Brain w/o Contrast Normal [facility] Morphon 03-01-2023 Anisocytosis Ql (Bld) Present Normal [facility] Comment on above: Order Comment: Order Added by Discern Expert. Performed By: #### 2 747029, 26609428, 9246376, 60030361, 9998685, 51686417, 40134170, 6062748 ####[facility] [address] [place] [address] Hypochromia Auto Ql (Bld) Present Normal [facility] Comment on above: Order Comment: Order Added by Discern Expert. Performed By: #### 2 851350, 07912586, 1680588, 43461946, 4408155, 69529273, 75036294, 2693482 ####[facility] [address] [place] [address] Morphology Jah (Bld) [Interp] See Morphology Normal [facility] Comment on above: Order Comment: Order Added by Discern Expert. Performed By: #### 2 279947, 85945650, 8105796, 83938922, 3219073, 97400132, 55101041, 6188415 ####[facility] [address] [place] [address] Progress Note-Physicianon Progress Note-Physician Normal [facility] Comment on above: Result Comment: Elec tronically Signed By: Chong Coe M.D\.br\Date and Time Signed: 03/01/23 14:52 EDT Progress Note-Physician Normal [facility] Comment on above: Result Comment: Elec tronically Signed By: FAVIAN WISE, Shayy\.br\Date and Time Signed: 03/01/23 09:01 EDT RAD - MRI Screening Formon 0 03-01-2023 RAD - MRI Screening Form [id number]#[id number]: [address] [facility] RAD - MRI Screening Form [id number]#1.00CD:[address] [facility] RCOon 03-01-2023 # of Units [address] [facility] Comment on above: Result Comment: 03/01 9:30 [id number] product ready and called to Emerald Castillo/ Isaac at 03/01/2023 09:29:57 EDT by BR. Performed By: #### 1 2538251 ####[facility] [address] [place] [address] Date Required 03/01/[address] [facility] Comment on above: Performed By: #### 1 5135013 ####[facility] [address] [place] [address] Product Type None Required Invalid Interpretation Code [facility] Comment on above: Performed By: #### 1 5417950 ####[facility] [address] [place] [address] Retic Counton 03-01-2023 Reticulocytes/100 RBC (Bld) 1.6 % High 0.5-1.5 [facility] Comment on above: Result Comment: This Reticulocyte Count Has Been Corrected For Anemia Performed By: #### 2 592509, 7739683, 70158635, 5271622, 5961700, 6304253, 13687713, 95061125, 8703121, 81354497 ####[facility] [address] [place] [address] TIBC Calculatedon 03-01-2023 Iron binding capacity [Mass/Vol] 290 microgram/dL Normal 250-400 [facility] Comment on above: Performed By: #### 2 201091, 7950660, 12493693, 2954237, 6624274, 4868850, 40129617, 91033882, 3279783, 22346215 ####[facility] [address] [place] [address] Transferrin [Mass/Vol] 207 mg/dL Normal 200-370 [facility] Comment on above: Performed By: #### 2 858007, 7544366, 69076937, 1572335, 9061535, 6523033, 97653180, 90760224, 9406536, 83286721 ####[facility] [address] [place] [address] TSH With T4fr Reflexon 03-01 TSH Qn 0.95 m[IU]/L Normal 0.34-5.60 [facility] Comment on above: Performed By: #### 2 817479, 33514488, 4475974, 07449024, 5203193, 34019077, 02429282, 0315957 ####[facility] [address] [place] [address] eGFRon 03-01-2023 GFR/1.73 sq M.predicted among non-blacks MDRD (S/P/Bld) [Vol rate/Area] 106 mL/min/1.73 m2 Normal >=59 [facility] Comment on above: Order Comment: Order added by Discern Expert. Result Comment: Donkey Engine Firer/Fireman alen kidney disease could be indicated at eGFR's of less than 60 mL/min/1.73m2. Kidney failure is indicated at less than 15 mL/min/1.73m2. Performed By: #### 2 521940, 17714179, 5099362, 20145126, 0185793, 93304038, 17276839, 1314672 ####[facility] [address] [place] [address] Capillary Glucose POCon 02-08 Glucose [Mass/Vol] 212 mg/dL High 55-99 [facility] Comment on above: Result Comment: Nuno MARIN Performed By: #### 2 45714448 ####[facility] [address] [place] [address] Glucose [Mass/Vol] 134 mg/dL High 55-99 [facility] Comment on above: Result Comment: Nuno MARIN Performed By: #### 2 36440689 ####[facility] [address] [place] [address] Glucose [Mass/Vol] 157 mg/dL High 55-99 [facility] Comment on above: Result Comment: Nuno MARIN Performed By: #### 2 20980363 ####[facility] [address] [place] [address] Glucose [Mass/Vol] 126 mg/dL High 55-99 [facility] Comment on above: Result Comment: Nuno MARIN Performed By: #### 2 58834757 ####[facility] [address] [place] [address] Interdisciplinary Note - Michelet e Manageron 02-28-2023 Interdisciplinary Note - Blanchard Grinder Operator Normal [facility] Comment on above: Result Comment: Elec tronically Signed By: Chong GUARDADO, Leona\.br\Date and Time Signed: 02/28/23 12:21 EDT Interdisciplinary Note - Nut ritionon 02-28-2023 Interdisciplinary Note - Nutrition Pt reassessed. 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 otherwise, pt demonstrates poor appetite, but accepts supplements/nourishments . Goal not met, continue POC. Normal [facility] Comment on above: Result Comment: Elec tronically Signed By: Lucas MEADOWS, , Misty\.br\Date and Time Signed: 02/28/23 13:34 EDT BMPon 02-27-2023 Anion gap [Moles/Vol] 10 mmol/L Normal 6-16 [facility] Comment on above: Performed By: #### 2 781884, 56820471 ####[facility] [address] [place] [address] Calcium [Mass/Vol] 8.1 mg/dL Low 8.9-11.1 [facility] Comment on above: Performed By: #### 2 867199, 64222704 ####[facility] [address] [place] [address] Chloride [Moles/Vol] 98 mmol/L Low 101-111 [facility] Comment on above: Performed By: #### 2 043764, 59149581 ####[facility] [address] [place] [address] CO2 [Moles/Vol] 28 mmol/L Normal 21-31 [facility] Comment on above: Performed By: #### 2 352211, 52292720 ####[facility] [address] [place] [address] Creatinine [Mass/Vol] 0.6 mg/dL Normal 0.5-1.3 [facility] Comment on above: Performed By: #### 2 987634, 08696442 ####[facility] [address] [place] [address] Glucose [Mass/Vol] 147 mg/dL Normal 55-199 [facility] Comment on above: Result Comment: If t his glucose result represents a fasting glucose, interpretation should refer to the following reference range: 55-99 mg/dL Performed By: #### 2 612277, 41765617 ####[facility] [address] [address] Potassium [Moles/Vol] 3.6 mmol/L Normal 3.5-5.3 [facility] Comment on above: Performed By: #### 2 342599, 49860160 ####[facility] [address] [place] [address] Sodium [Moles/Vol] 132 mmol/L Low 135-145 [facility] Comment on above: Performed By: #### 2 373710, 65738812 ####[facility] [address] [facility] [place] [address] Urea nitrogen [Mass/Vol] 28 mg/dL High 5-21 [facility] Comment on above: Performed By: #### 2 689642, 19027052 ####[facility] [address] [place] [address] Urea nitrogen/Creatinine [Mass ratio] 47 No Units High 10-20 [facility] Comment on above: Performed By: #### 2 892236, 19984891 ####[facility] [address] [place] [address] Capillary Glucose POCon 05-2 Glucose [Mass/Vol] 95 mg/dL Normal 55-99 [facility] Comment on above: Result Comment: Nuno MARIN Performed By: #### 2 53525525 ####[facility] [address] [place] [address] Glucose [Mass/Vol] 115 mg/dL High 55-99 [facility] Comment on above: Result Comment: Nuno MARIN Performed By: #### 2 03612620 ####[facility] [address] [place] [address] Glucose [Mass/Vol] 153 mg/dL High 55-99 [facility] Comment on above: Result Comment: Nuno aranda RN/ Performed By: #### 2 47283212 ####[facility] [address] [place] [address] Glucose [Mass/Vol] 111 mg/dL High 55-99 [facility] Comment on above: Result Comment: Nuno aranda RN/ Performed By: #### 2 81439631 ####[facility] [address] [place] [address] Interdisciplinary Note - Michelet e Manageron 02-27-2023 Interdisciplinary Note - Blanchard Grinder Operator Normal [facility] Comment on above: Result Comment: Elec tronically Signed By: Sonia Morejon\.br\Date and Time Signed: 02/27/23 15:31 EDT Progress Note-Physicianon Progress Note-Physician Normal F [facility] Comment on above: Result Comment: Elec tronically Signed By: NEVAEH WISE, Ramos\.br\Date and Time Signed: 02/27/23 10:31 EDT eGFRon 02-27-2023 GFR/1.73 sq M.predicted among non-blacks MDRD (S/P/Bld) [Vol rate/Area] 100 mL/min/1.73 m2 Normal >=59 [facility] Comment on above: Order Comment: Order added by Discern Expert. Result Comment: Donkey Engine Firer/Fireman alen kidney disease could be indicated at eGFR's of less than 60 mL/min/1.73m2. Kidney failure is indicated at less than 15 mL/min/1.73m2. Performed By: #### 2 504675, 95218520 ####[facility] [address] [place] [address] CT Head or Brain w/o Contras ton 02-26-2023 CT Head or Brain w/o Contrast Normal [facility] CT Spine Cervical w/o Contra ston 02-26-2023 CT Spine Cervical w/o Contrast Normal [facility] Capillary Glucose POCon 02-08 Glucose [Mass/Vol] 127 mg/dL High 55-99 [facility] Comment on above: Result Comment: Nuno MARIN Performed By: #### 2 [id number] ####[facility] [address] [facility] [place] [place] [address] Glucose [Mass/Vol] 121 mg/dL High 55- [facility] Comment on above: Result Comment: Nuno MARIN Performed By: #### 2 20786929 ####[facility] [address] [facility] [place] [place] [address] Glucose [Mass/Vol] 169 mg/dL High 55-99 [facility] Comment on above: Result Comment: Nuno MARIN Performed By: #### 2 79079344 ####[facility] [address] [facility] [place] [place] [address] Glucose [Mass/Vol] 140 mg/dL High 55- [facility] Comment on above: Result Comment: Nuno MARIN Performed By: #### 2 77256167 ####[facility] [address] [facility] [place] [address] Glucose [Mass/Vol] 169 mg/dL High 55- [facility] Comment on above: Performed By: #### 2 31139737 ####[facility] [address] [facility] [place] [address] Interdisciplinary Note - Michelet e Manageron 02-26-2023 Interdisciplinary Note - Blanchard Grinder Operator Normal [facility] Comment on above: Result Comment: Elec tronically Signed By: Sonia Morejon\.br\Date and Time Signed: 02/26/23 10:51 EDT Progress Note-Physicianon Progress Note-Physician Normal [facility] Comment on above: Result Comment: Elec tronically Signed By: Ramos HERRING MD\.br\Date and Time Signed: 02/26/23 10:17 EDT Capillary Glucose POCon 02-07 Glucose [Mass/Vol] 133 mg/dL High 55-99 [facility] Comment on above: Result Comment: Nuno aranda RN/ Performed By: #### 2 [id number] ####[facility] [address] [place] [address] Glucose [Mass/Vol] 91 mg/dL Normal 55-99 [facility] Comment on above: Result Comment: Sayra francia Meter Performed By: #### 2 [id number] ####[facility] [address] [place] [address] Glucose [Mass/Vol] 155 mg/dL High 55-99 [facility] Comment on above: Result Comment: Nuno aranda RN/ Performed By: #### 2 [id number] ####[facility] [address] [place] [address] Consultation Noteon 02-26-[address] [facility] Comment on above: Result Comment: Elec tronically Signed By: Chong Coe M.D\.br\Date and Time Signed: 02/25/23 09:21 EDT Interdisciplinary Note - Michelet e Manageron 02-25-2023 Interdisciplinary Note - Blanchard Grinder Operator Normal [facility] Comment on above: Result Comment: Elec tronically Signed By: Alla Choe RN\.br\Date and Time Signed: 02/25/23 13:11 EDT Interdisciplinary Note - Ashley n 02-25-2023 Interdisciplinary Note - OT Normal [facility] Interdisciplinary Note - PTo n 02-25-2023 Interdisciplinary Note - PT Normal [facility] Progress Note-Physicianon Progress Note-Physician Normal F [facility] Comment on above: Result Comment: Elec tronically Signed By: Paul Tinajero MD\.br\Date and Time Signed: 02/25/23 21:58 EDT Progress Note-Physician Normal F [facility] Comment on above: Result Comment: Elec tronically Signed By: NEVAEH WISE, Ramos\.br\Date and Time Signed: 02/25/23 11:37 EDT CHEMISTRYOrdered By: Caity Roman on 02-24-2023 CK [Catalytic activity/Vol] 21 [iU]/d Normal 14 - 261 Int._Unit/L [facility] Remisol CHEMISTRYOrdered By: Fidel Peterson on 02-24-2023 HbA1c (Bld) [Mass fraction] 5.2 % Normal <=5.9% FT ChemAutoSS CHEMISTRYOrdered By: SYSTEM SYSTEM on 02-23-2023 Amphetamines [...] - 1 2.5 second(s) [facility] Auto Coag Laboratory - Microbiology an d Antimicrobial susceptibilityOrdered By: Sabiha Ayala on 02-23-2023 Bacteria identified Cx Nom (U) No growth at 2 days. [facility] No Panel InformationOrdered By: Meaghan Pinzon on 02-23-2023 Blood Culture Charcoal No growth at 7 days. [facility] Blood Culture Charcoal No growth at 7 days. [facility] URINALYSISOrdered By: Elodia puckett on 02-23-2023 Bacteria [...] AM) Normal Negative [facility] UA Auto SS [place].plasma/[place]. RBC (Bld) [Mass ratio] 0-3 /HPF Normal [...] Comment: cath . specimen Urobilinogen Qn (U) [id number] {Mercedes'U}/dL Normal 0.0 - 1.0 EU/dL [facility] UA Auto SS WBC Auto Ql (U) Negative (02/23/23 11:47 AM) Normal Negative [facility] UA Auto SS WBC LM.HPF (Urine sed) [#/Area] 0-5 /HPF Normal 0-5/HPF [facility] UA Auto SS CHEMISTRYOrdered By: SYSTEM SYSTEM on 02-15-2023 Albumin [...] 100 mL/min/1.73 m2 Normal >=59mL/min/1 .73 m2 [facility] Chem S Globulin (S) [Mass/Vol] 4.5 g/dL High 1.4 - 4.0 gm/dL [facility] Remisol Glucose [Mass/Vol] 166 mg/dL Normal 55 - 199 mg/dL [facility] Remisol Potassium [Moles/Vol] 3.9 mmol/L Normal 3.5 - 5.3 mmol/L [facility] Remisol Protein [Mass/Vol] 6.8 g/dL Normal 6.0 - 7.8 gm/dL [facility] Remisol Sodium [Moles/Vol] 128 mmol/L Low 135 - 145 mmol/L [facility] Remisol Urea nitrogen [Mass/Vol] 23 mg/dL High 5 - 21 mg/dL [facility] Remisol Urea nitrogen/Creatinine [Mass ratio] 38 mg/mg High 10 - 20 [facility] Remisol COAGULATIONOrdered By: Yang Ayala on 02-15-2023 aPTT Coag (PPP) [Time] 37.7 s High 25.1 - 36.5 second(s) [facility] Auto Coag INR Coag (PPP) [Relative time] 1.5 {INR} Invalid Interpretation Code [facility] Auto Coag PT Coag (PPP) [Time] 17.2 s High 9.4 - 1 2.5 second(s) [facility] Auto Coag HEMATOLOGYOrdered By: SYSTEM SYSTEM on 02-15-2023 Basophils/100 [...] 10.1 E9/L Normal 4.0 - 11.0 E9/L FT HemeAutoSS CBC W MANUAL DIFFon 02-10-20 23 ANISOCYTOSIS 1+ Normal [facility] Comment on above: Performed By: #### C ESTHELA #### [facility] [address] [place] [address] Dr. Joselyn Coffey ATYPICAL LYMPH # Normal [facility] Comment on above: Performed By: #### C ESTHELA #### [facility] [address] [address] [address] Joselyn Coffey ATYPICAL LYMPH % Normal [facility] Comment on above: Performed By: #### C DANNYMAN #### [facility] [address] [address] [address] Joselyn Coffey BAND # Normal 0.0-0.3 [facility] Comment on above: Performed By: #### C DANNYMAN #### [facility] [address] [place] [address] Dr. Joselyn Coffey BAND % Normal 0-5 [facility] Comment on above: Performed By: #### C ESTHELA #### [facility] [address] [place] [address] Dr. Joselyn Coffey BASOM # 0.00 103/ul Normal 0.00-0.10 [facility] Comment on above: Performed By: #### C BCMAN #### [facility] [address] [address] [address] Joselyn Coffey BASOM % 0.0 % Critically low 0.2-2.0 [facility] Comment on above: Performed By: #### C BCMAN #### [facility] [address] [address] [address] Joselyn Coffey BLAST # Normal [facility] Comment on above: Performed By: #### C BCDEV #### [facility] [address] [place] [address] Dr. Joselyn Coffey BLAST % Normal [facility] Comment on above: Performed By: #### C ESTHELA #### [facility] [address] [place] [address] Dr. Joselyn Coffey CORRECTED WBC Normal 4.0-11.0 [facility] Comment on above: Performed By: #### C BCDEV #### [facility] [address] [place] [address] Dr. Joselyn Coffey EOS # 0.00 103/ul Normal 0.00-0.70 [facility] Comment on above: Performed By: #### C ESTHELA #### [facility] [address] [place] [address] Dr. Joselyn Coffey EOS% 0.0 % Critically low 0.9-7.0 [facility] Comment on above: Performed By: #### C BCMAN #### [facility] [address] [place] [address] Dr. Joselyn Coffey HCT 26.7 % Critically low 42.0-54.0 [facility] Comment on above: Performed By: #### C BCMAN #### [facility] [address] [place] [address] Dr. Joselyn Coffey HGB 8.3 g/dl Critically low 14.0-18.0 [facility] Comment on above: Performed By: #### C BCMAN #### [facility] [address] [place] [address] Dr. Joselyn Coffey HYPOCHROMASIA 2+ Normal [facility] Comment on above: Performed By: #### C ESTHELA #### [facility] [address] [place] [address] Dr. Joselyn Coffey LYMPHM # 0.17 103/ul Critically low 1.20-3.80 [facility] Comment on above: Performed By: #### C ESTHELA #### [facility] [address] [place] [address] Dr. Joselyn Coffey LYMPHM% 3.0 % Critically low 20.5-60.0 [facility] Comment on above: Performed By: #### Sammy PROCTOR #### [facility] [address] [place] [address] Dr. Joselyn Coffey MCH 28.3 pg Normal 25.9-34.0 [facility] Comment on above: Performed By: #### Sammy PROCTOR #### [facility] [address] [place] [address] Dr. Joselyn Coffey MCHC 31.1 g/dl Normal 29.9-35.2 [facility] Comment on above: Performed By: #### Sammy PROCTOR #### [facility] [address] [place] [address] Dr. Joselyn Coffey MCV 91.1 fL Normal 80.0-94.0 [facility] Comment on above: Performed By: #### Sammy PROCTOR #### [facility] [address] [place] [address] Dr. Joselyn Coffey METAMYELOCYTE # Normal [facility] Comment on above: Performed By: #### Sammy PROCTOR #### [facility] [address] [place] [address] Dr. Joselyn Coffey METAMYELOCYTE % Normal [facility] Comment on above: Performed By: #### Sammy PROCTOR #### [facility] [address] [place] [address] Dr. Joselyn Coffey MONOM# 0.46 103/ul Normal 0.30-0.80 [facility] Comment on above: Performed By: #### Sammy PROCTOR #### [facility] [address] [address] [address] Joselyn Coffey MONOM% 8.0 % Normal 1.7-12.0 [facility] Comment on above: Performed By: #### Sammy PROCTOR #### [facility] [address] [place] [address] Dr. Joselyn Coffey MPV 11.6 fL Normal 9.5-13.5 [facility] Comment on above: Performed By: #### C ESTHELA #### [facility] [address] [place] [address] Dr. Joselyn Coffey MYELOCYTE # Normal [facility] Comment on above: Performed By: #### Sammy PROCTOR #### [facility] [address] [place] [address] Dr. Joselyn Coffey MYELOCYTE % Normal [facility] Comment on above: Performed By: #### Sammy PROCTOR #### [facility] [address] [place] [address] Dr. Joselyn Coffey NRBC Normal [facility] Comment on above: Performed By: #### Sammy PROCTOR #### [facility] [address] [place] [address] Dr. oJselyn Coffey PLT 161 103/ul Normal 150-450 [facility] Comment on above: Performed By: #### C ESTHELA #### [facility] [address] [place] [address] Dr. Joselyn Coffey RBC 2.93 106/ul Critically low 4.70-6.10 [facility] Comment on above: Performed By: #### C ESTHELA #### [facility] [address] [place] [address] Dr. Joselyn Coffey RDW 18.8 % Critically high 11.0-15.0 [facility] Comment on above: Performed By: #### C ESTHELA #### [facility] [address] [place] [address] Dr. Joselyn Coffey SEG # 5.16 103/ul Normal 1.40-6.50 [facility] Comment on above: Performed By: #### Sammy PROCTOR #### [facility] [address] [place] [address] Dr. Joselyn Coffey SEG % 89.0 % Critically high 43.0-75.0 [facility] Comment on above: Performed By: #### C ESTHELA #### [facility] [address] [place] [address] Dr. Joselyn Coffey WBC 5.8 103/ul Normal 4.0-11.0 [facility] Comment on above: Performed By: #### C ESTHELA #### [facility] [address] [place] [address] Dr. Joselyn Coffey PROF CHEM 8 (BAS METB)on Anion gap [Moles/Vol] 8.3 mmol/L Normal [facility] Comment on above: Performed By: #### B MP #### [facility] [address] [place] [address] Dr. Joselyn Coffey Calcium [Mass/Vol] 8.3 mg/dL Critically low 8.5-10.1 [facility] Comment on above: Performed By: #### B MP #### [facility] [address] [place] [address] Dr. Joselyn Coffey Chloride [Moles/Vol] 101 mmol/L Normal 98-107 [facility] Comment on above: Performed By: #### B MP #### [facility] [address] [place] [address] Dr. Joselyn Coffey CO2 [Moles/Vol] 27.7 mmol/L Normal 21.0-32.0 [facility] Comment on above: Performed By: #### B MP #### [facility] [address] [place] [address] Dr. Joselyn Coffye Creatinine [Mass/Vol] 0.60 mg/dL Critically low 0.70-1.30 [facility] Comment on above: Performed By: #### B MP #### [facility] [address] [place] [address] Dr. Joselyn Coffey EGFR-AF TUNISIAN >60 Normal >=60 [facility] Comment on above: Performed By: #### B MP #### [facility] [address] [place] [address] Dr. Joselyn Coffey EGFR-NON AF TUNISIAN >60 Normal >=60 [facility] Comment on above: Performed By: #### B MP #### [facility] [address] [address] [address] Joselyn Coffey Glucose [Mass/Vol] 188 mg/dL Critically high 74-106 T [facility] Comment on above: Performed By: #### B MP #### [facility] [address] [address] [address] Joselyn Coffey Potassium [Moles/Vol] 4.0 mmol/L Normal 3.5-5.1 [facility] Comment on above: Performed By: #### B MP #### [facility] [address] [address] [address] Joselyn Coffey Sodium [Moles/Vol] 133 mmol/L Critically low 136-145 Th [facility] Comment on above: Performed By: #### B MP #### [facility] [address] [address] [address] Joselyn Coffey Urea nitrogen [Mass/Vol] 13.0 mg/dL Normal 7.0-18.0 [facility] Comment on above: Performed By: #### B MP #### [facility] [address] [place] [address] Dr. Joselyn Coffey Urea nitrogen/Creatinine [Mass ratio] 21.7 mg/mg Normal [facility] Comment on above: Performed By: #### B MP #### [facility] [address] [address] [address] Joselyn Coffey PROTIMEon 02-09-2023 INR Coag (PPP) [Relative time] 1.12 {INR} Normal [facility] Comment on above: Performed By: #### C ESTHELA #### [facility] [address] [place] [address] Dr. Joselyn Coffey INR GUIDELINES SEE BELOW Normal [facility] Comment on above: Result Comment: SNOW RED INR: 2.0 - 3.0 CONDITIONS NOT LISTED BELOW 2.5 - 3.5 FOR PROSTHETIC HEART VALVE REPLACEMENT 2.5 - 3.5 RECURRENT THROMBOSIS Performed By: #### C ESTHELA #### [facility] [address] [place] [address] Dr. Joselyn Coffey PT Coag (PPP) [Time] 11.8 s Critically high 9.0-11.6 [facility] Comment on above: Performed By: #### C DANNYMAN #### [facility] [address] [place] [address] Dr. Joselyn Coffey PTTon 02-09-2023 aPTT Coag (Bld) [Time] 37.3 s Critically high 22.3-36. 2 [facility] Comment on above: Performed By: #### C DANNYDEV #### [facility] [address] [place] [address] Dr. Joselyn Coffey US ARTERY LEG RTon [...] by: MARIO CULLEN Date: 2023-02-09 14:17 Normal [facility] XR CHEST 1 Von 02-09-2023 XR CHEST 1 V EXAM: XR CHEST 1 V HISTORY: Asthenia COMPARISON: 04/04/2021 TECHNIQUE: Single view of the chest FINDINGS: Heart size normal. No focal consolidation, pleural effusion, pulmonary congestion or pneumothorax. Sternotomy wires. Right-sided central line terminating in the lower SVC region. IMPRESSION: No acute findings. Electronically authenticated by: DONALD LIMA Date: 2023-02-09 14:18 Normal [facility] CBC AUTO DIFFon 01-29-2023 BASO # 0.0 103/ul Normal 0.0-0.1 [facility] Comment on above: Performed By: #### P TT, PT #### [facility] [address] [place] [address] Dr. Joselyn Coffey Basophils/100 WBC (Bld) 0.2 % Normal 0.2-2.0 [facility] Comment on above: Performed By: #### P TT, PT #### [facility] [address] [place] [address] Dr. Joselyn Coffey EO # 0.0 103/ul Normal 0.0-0.7 [facility] Comment on above: Performed By: #### P TT, PT #### [facility] [address] [place] [address] Dr. Joselyn Coffey Eosinophils/100 WBC (Bld) 0.0 % Critically low 0.9-7.0 [facility] Comment on above: Performed By: #### P TT, PT #### [facility] [address] [place] [address] Dr. Joselyn Coffey Erythrocyte distribution width (RBC) [Ratio] 17.7 % Critically high 11.0-15.0 [facility] Comment on above: Performed By: #### P TT, PT #### [facility] [address] [place] [address] Dr. Joselyn Coffey Hematocrit (Bld) [Volume fraction] 17.5 % Critically low 42.0-54.0 [facility] Comment on above: Performed By: #### P TT, PT #### [facility] [address] [place] [address] Dr. Joselyn Coffey Hemoglobin (Bld) [Mass/Vol] 5.1 g/dL Critically low 14.0-18.0 [facility] Comment on above: Performed By: #### P TT, PT #### [facility] [address] [place] [address] Dr. Joselyn Coffey IG # 0.02 10e3/ul Normal 0.00-0.03 [facility] Comment on above: Performed By: #### P TT, PT #### [facility] [address] [place] [address] Dr. Joselyn Coffey IG % 0.4 % Normal 0.0-0.5 [facility] Comment on above: Performed By: #### P TT, PT #### [facility] [address] [address] [address] Joselyn Coffey LYMPH # 0.3 103/ul Critically low 1.2-3.8 [facility] Comment on above: Performed By: #### P TT, PT #### [facility] [address] [address] [address] Joselyn Coffey Lymphocytes/100 WBC (Bld) 5.8 % Critically low 20.5-60.0 [facility] Comment on above: Performed By: #### P TT, PT #### [facility] [address] [place] [address] Dr. Joselyn Coffey MANUAL DIFF REQ NO Normal [facility] Comment on above: Performed By: #### P TT, PT #### [facility] [address] [place] [address] Dr. Joselyn Coffey MCH (RBC) [Entitic mass] 25.5 pg Critically low 25.9-34.0 [facility] Comment on above: Performed By: #### P TT, PT #### [facility] [address] [place] [address] Dr. Joselyn Coffey MCHC (RBC) [Mass/Vol] 29.1 g/dL Critically low 29.9-35.2 [facility] Comment on above: Performed By: #### P TT, PT #### [facility] [address] [place] [address] Dr. Joselyn Coffey MCV (RBC) [Entitic vol] 87.5 fL Normal 80.0-94.0 [facility] Comment on above: Performed By: #### P TT, PT #### [facility] [address] [place] [address] Dr. Joselyn Coffey MONO # 0.5 103/ul Normal 0.3-0.8 [facility] Comment on above: Performed By: #### P TT, PT #### [facility] [address] [place] [address] Dr. Joselyn Coffey Monocytes/100 WBC (Bld) 10.4 % Normal 1.7-12.0 [facility] Comment on above: Performed By: #### P TT, PT #### [facility] [address] [address] [address] Joselyn Coffey NEUT # 4.3 103/ul Normal 1.4-6.5 [facility] Comment on above: Performed By: #### P TT, PT #### [facility] [address] [address] [address] Joselyn Coffey Neutrophils/100 WBC (Bld) 83.2 % Critically high 43.0-75.0 [facility] Comment on above: Performed By: #### P TT, PT #### [facility] [address] [address] [address] Joselyn Coffey Platelet mean volume (Bld) [Entitic vol] 12.4 fL Normal 9.5-13.5 [facility] Comment on above: Performed By: #### P TT, PT #### [facility] [address] [place] [address] Dr. Joselyn Coffey PLT 113 103/ul Critically low 150-450 [facility] Comment on above: Performed By: #### P TT, PT #### [facility] [address] [address] [address] Joselyn Coffey RBC 2.00 106/ul Critically low 4.70-6.10 [facility] Comment on above: Performed By: #### P TT, PT #### [facility] [address] [address] [address] Joselyn Coffey WBC 5.2 103/ul Normal 4.0-11.0 [facility] Comment on above: Performed By: #### P TT, PT #### [facility] [address] [address] [address] Joselyn Coffey CTA ABD MARY JANE [...] by: LUZ NIETO Date: 2023-01-29 17:48 Normal [facility] PRBC LEUKOREDUCEDon 01-30-20 23 ABO and Rh group Nom (Bld) Cross Match Result Compatible Unit Blood Type O Pos Unit Number [id number] Status Information Issued Product ID Red Blood Cells Product Code [id number] Issue Date/Time [id number] Cross Match Result Compatible Unit Blood Type O Pos Unit Number [id number] Status Information Issued Product ID Red Blood Cells Product Code [id number] Issue Date/Time [id number] Normal [facility] Comment on above: Performed By: #### C BCMAN #### [facility] [address] [place] [address] Dr. Joselyn Coffey PROF CHEM 8 (BAS METB)on Anion gap [Moles/Vol] 12.3 mmol/L Normal [facility] Comment on above: Performed By: #### B MP #### [facility] [address] [place] [address] Dr. Joselyn Coffey Calcium [Mass/Vol] 7.3 mg/dL Critically low 8.5-10.1 [facility] Comment on above: Performed By: #### B MP #### [facility] [address] [place] [address] Dr. Joselyn Coffey Chloride [Moles/Vol] 100 mmol/L Normal 98-107 [facility] Comment on above: Performed By: #### B MP #### [facility] [address] [place] [address] Dr. Joselyn Coffey CO2 [Moles/Vol] 23.7 mmol/L Normal 21.0-32.0 [facility] Comment on above: Performed By: #### B MP #### [facility] [address] [place] [address] Dr. Joselyn Coffey Creatinine [Mass/Vol] 0.82 mg/dL Normal 0.70-1.30 [facility] Comment on above: Performed By: #### B MP #### [facility] [address] [place] [address] Dr. Joselyn Coffey EGFR-AF TUNISIAN >60 Normal >=60 [facility] Comment on above: Performed By: #### B MP #### [facility] [address] [address] [address] Joselyn Coffey EGFR-NON AF TUNISIAN >60 Normal >=60 [facility] Comment on above: Performed By: #### B MP #### [facility] [address] [address] [address] Joselyn Coffey Glucose [Mass/Vol] 234 mg/dL Critically high 74-106 T [facility] Comment on above: Performed By: #### B MP #### [facility] [address] [address] [address] Joselyn Coffey Potassium [Moles/Vol] 4.0 mmol/L Normal 3.5-5.1 [facility] Comment on above: Performed By: #### B MP #### [facility] [address] [address] [address] Joselyn Coffey Sodium [Moles/Vol] 132 mmol/L Critically low 136-145 Th [facility] Comment on above: Performed By: #### B MP #### [facility] [address] [address] [address] Joselyn Coffey Urea nitrogen [Mass/Vol] 14.0 mg/dL Normal 7.0-18.0 [facility] Comment on above: Performed By: #### B MP #### [facility] [address] [address] [address] Joselyn Coffey Urea nitrogen/Creatinine [Mass ratio] 17.1 mg/mg Normal [facility] Comment on above: Performed By: #### B MP #### [facility] [address] [address] [address] Joselyn Coffey PROTIMEon 01-29-2023 INR Coag (PPP) [Relative time] 1.32 {INR} Normal [facility] Comment on above: Performed By: #### P TT, PT #### [facility] [address] [address] [address] Joselyn Coffey INR GUIDELINES SEE BELOW Normal [facility] Comment on above: Result Comment: SNOW RED INR: 2.0 - 3.0 CONDITIONS NOT LISTED BELOW 2.5 - 3.5 FOR PROSTHETIC HEART VALVE REPLACEMENT 2.5 - 3.5 RECURRENT THROMBOSIS Performed By: #### P TT, PT #### [facility] [address] [place] [address] Dr. Joselyn Coffey PT Coag (PPP) [Time] 13.8 s Critically high 9.0-11.6 [facility] Comment on above: Performed By: #### P TT, PT #### [facility] [address] [place] [address] Dr. Joselyn Coffey PTTon 01-29-2023 aPTT Coag (Bld) [Time] 34.5 s Normal 22.3-36.2 Th [facility] Comment on above: Performed By: #### P TT, PT #### [facility] [address] [place] [address] Dr. Joselyn Coffey TYPE AND SCREENon 01-29-2023 TYPE AND SCREEN Negative Normal [facility] Comment on above: Performed By: #### C BCMAN #### [facility] [address] [place] [address] Dr. Joselyn Coffey CARDIAC MARCO A ADMITon 023 CK [Catalytic activity/Vol] 109 U/L Normal 39-308 [facility] Comment on above: Performed By: #### C MADM, CMP #### [facility] [address] [place] [address] Dr. Joselyn Coffey CK.MB [Mass/Vol] 0.94 ng/mL Normal <=3.60 [facility] Comment on above: Performed By: #### C MADM, CMP #### [facility] [address] [place] [address] Dr. Joselyn Coffey HSTROP 8.1 pg/mL Normal 4.0-76.1 [facility] Comment on above: Result Comment: CUT- OFF POINTS HAVE BEEN ESTABLISHED BASED ON THE FOURTH UNIVERSAL DEFINITIONS OF MYOCARDIAL INFARCTION. THE UPPER REFERENCE LIMIT (URL) OF TROPONIN, DEFINED THE 99TH PERCENTILE OF cTnI DISTRIBUTION IN A REFERENCE POPULATION, HAS BEEN CONFIRMED THE DECISION THRESHOLD FOR [place] DIAGNOSIS. Performed By: #### C MADM, CMP #### [facility] [address] [address] [address] Joselyn Coffey CHULA 144 ng/mL Critically high 16-96 [facility] Comment on above: Performed By: #### C ROSALINA, CMP #### [facility] [address] [address] [address] Joselyn Coffey CBC AUTO DIFFon 11-13-2022 BASO # 0.0 103/ul Normal 0.0-0.1 [facility] Comment on above: Performed By: #### C ESTHELA #### [facility] [address] [place] [address] Dr. Joselyn Coffey Basophils/100 WBC (Bld) 0.3 % Normal 0.2-2.0 [facility] Comment on above: Performed By: #### C ESTHELA #### [facility] [address] [place] [address] Dr. Joselyn Coffey EO # 0.0 103/ul Normal 0.0-0.7 [facility] Comment on above: Performed By: #### C ESTHELA #### [facility] [address] [place] [address] Dr. Joselyn Coffey Eosinophils/100 WBC (Bld) 0.3 % Critically low 0.9-7.0 [facility] Comment on above: Performed By: #### C ESTHELA #### [facility] [address] [place] [address] Dr. Joselyn Coffey Erythrocyte distribution width (RBC) [Ratio] 18.7 % Critically high 11.0-15.0 [facility] Comment on above: Performed By: #### C ESTHELA #### [facility] [address] [place] [address] Dr. Joselyn Coffey Hematocrit (Bld) [Volume fraction] 25.4 % Critically low 42.0-54.0 [facility] Comment on above: Performed By: #### C ESTHELA #### [facility] [address] [place] [address] Dr. Joselyn Coffey Hemoglobin (Bld) [Mass/Vol] 8.2 g/dL Critically low 14.0-18.0 [facility] Comment on above: Performed By: #### C BCMAN #### [facility] [address] [address] [address] Joselyn Coffey IG # 0.04 10e3/ul Critically high 0.00-0.03 [facility] Comment on above: Performed By: #### C BCMAN #### [facility] [address] [address] [address] Joselyn Coffey IG % 0.7 % Critically high 0.0-0.5 [facility] Comment on above: Performed By: #### C BCMAN #### [facility] [address] [address] [address] Joselyn Coffey LYMPH # 0.4 103/ul Critically low 1.2-3.8 [facility] Comment on above: Performed By: #### C BCDEV #### [facility] [address] [place] [address] Dr. Joselyn Coffey Lymphocytes/100 WBC (Bld) 7.2 % Critically low 20.5-60.0 [facility] Comment on above: Performed By: #### C BCDEV #### [facility] [address] [place] [address] Dr. Joselyn Coffey MANUAL DIFF REQ NO Normal [facility] Comment on above: Performed By: #### C BCDEV #### [facility] [address] [place] [address] Dr. Joselyn Coffey MCH (RBC) [Entitic mass] 32.8 pg Normal 25.9-34.0 [facility] Comment on above: Performed By: #### C BCDEV #### [facility] [address] [address] [address] Joselyn Coffey MCHC (RBC) [Mass/Vol] 32.3 g/dL Normal 29.9-35.2 [facility] Comment on above: Performed By: #### C BCMAN #### [facility] [address] [place] [address] Dr. Joselyn Coffey MCV (RBC) [Entitic vol] 101.6 fL Critically high 80.0-94 .0 [facility] Comment on above: Performed By: #### C ESTHELA #### [facility] [address] [address] [address] Joselyn Coffey MONO # 0.7 103/ul Normal 0.3-0.8 [facility] Comment on above: Performed By: #### C ESTHELA #### [facility] [address] [address] [address] Joselyn Coffey Monocytes/100 WBC (Bld) 11.9 % Normal 1.7-12.0 [facility] Comment on above: Performed By: #### C ESTHELA #### [facility] [address] [address] [address] Joselyn Coffey NEUT # 4.7 103/ul Normal 1.4-6.5 [facility] Comment on above: Performed By: #### C ESTHELA #### [facility] [address] [place] [address] Dr. Joselyn Coffey Neutrophils/100 WBC (Bld) 79.6 % Critically high 43.0-75.0 [facility] Comment on above: Performed By: #### C ESTHELA #### [facility] [address] [place] [address] Dr. Joselyn Coffey Platelet mean volume (Bld) [Entitic vol] 10.8 fL Normal 9.5-13.5 [facility] Comment on above: Performed By: #### C ESTHELA #### [facility] [address] [place] [address] Dr. Joselyn Coffey PLT 108 103/ul Critically low 150-450 [facility] Comment on above: Performed By: #### C ESTHELA #### [facility] [address] [place] [address] Dr. Joselyn Coffey RBC 2.50 106/ul Critically low 4.70-6.10 [facility] Comment on above: Performed By: #### C ESTHELA #### [facility] [address] [address] [address] Joselyn Coffey WBC 6.0 103/ul Normal 4.0-11.0 [facility] Comment on above: Performed By: #### C MAN #### [facility] [address] [place] [address] Dr. Joselyn Coffey Covid-19 PCR ([facility])on SARS-CoV-2 (COVID-19) RNA HAIM+probe Ql (Unsp spec) Not detected Normal NOT DETECTED [facility] Comment on above: Result Comment: When [...] for this test is supported by the [place] of Health and Human Service's declaration that [...] Performed By: #### P TT, PT #### [facility] [address] [place] [address] Dr. Joselyn Coffey ER URINE PROFILEon 3 Bilirubin Ql (U) Negative Normal NEGATIVE [facility] Comment on above: Performed By: #### P TT, PT #### [facility] [address] [place] [address] Dr. Joselyn Coffey Clarity (U) CLEAR Normal CLEAR [facility] Comment on above: Performed By: #### P TT, PT #### [facility] [address] [place] [address] Dr. Joselyn Coffey Color (U) ORANGE Abnormal YELLOW [facility] Comment on above: Performed By: #### P TT, PT #### [facility] [address] [place] [address] Dr. Joselyn Coffey ERUAHD A micrscopic examina tion will be performed if indicated. Normal [facility] Comment on above: Performed By: #### P TT, PT #### [facility] [address] [place] [address] Dr. Joselyn Coffey Glucose Ql (U) 100 mg/dl Abnormal NEGATIVE [facility] Comment on above: Performed By: #### P TT, PT #### [facility] [address] [place] [address] Dr. Joselyn Coffey Hemoglobin Ql (U) Negative Normal NEGATIVE [facility] Comment on above: Performed By: #### P TT, PT #### [facility] [address] [place] [address] Dr. Joselyn Coffey Ketones Ql (U) Negative Normal NEGATIVE [facility] Comment on above: Performed By: #### P TT, PT #### [facility] [address] [place] [address] Dr. Joselyn Coffey LEUKOCYTES Negative Normal NEGATIVE [facility] Comment on above: Performed By: #### P TT, PT #### [facility] [address] [place] [address] Dr. Joselyn Coffey Nitrite Ql (U) Negative Normal NEGATIVE [facility] Comment on above: Performed By: #### P TT, PT #### [facility] [address] [place] [address] Dr. Joselyn Coffey pH (U) 6.0 [pH] Normal 5-9 [facility] Comment on above: Performed By: #### P TT, PT #### [facility] [address] [place] [address] Dr. Joselyn Coffey SPEC GRAVITY 1.015 Normal 1.005-<=1.02 5 [facility] Comment on above: Performed By: #### P TT, PT #### [facility] [address] [place] [address] Dr. Joselyn Coffey UA PROTEIN TRACE Normal NEGATIVE/ TRACE [facility] Comment on above: Performed By: #### P TT, PT #### [facility] [address] [place] [address] Dr. Joselyn Coffey UR MICRO IND NOT INDICATED Normal [facility] Comment on above: Performed By: #### P TT, PT #### [facility] [address] [place] [address] Dr. Joselyn Coffey Urobilinogen Qn (U) 8 {Mercedes'U}/dL Abnormal 0.2 - 1.0 [facility] Comment on above: Performed By: #### P TT, PT #### [facility] [address] [place] [address] Dr. Joselyn Coffey PROF 14(COMP METB)on 023 Albumin [Mass/Vol] 2.6 g/dL Critically low 3.4-5.0 Th e [facility] Comment on above: Performed By: #### C CARLYNM, CMP #### [facility] [address] [place] [address] Dr. Joselyn Coffey Albumin/Globulin [Mass ratio] 0.7 {ratio} Normal [facility] Comment on above: Performed By: #### C CARLYNM, CMP #### [facility] [address] [place] [address] Dr. Joselyn Coffey ALP [Catalytic activity/Vol] 115 U/L Normal 46-116 [facility] Comment on above: Performed By: #### C CARLYNM, CMP #### [facility] [address] [place] [address] Dr. Joselyn Coffey ALT [Catalytic activity/Vol] 44 U/L Normal 16-63 [facility] Comment on above: Performed By: #### C CARLYNM, CMP #### [facility] [address] [place] [address] Dr. Joselyn Coffey Anion gap [Moles/Vol] 9.6 mmol/L Normal [facility] Comment on above: Performed By: #### C CARLYNM, CMP #### [facility] [address] [place] [address] Dr. Joselyn Coffey AST [Catalytic activity/Vol] 52 U/L Critically high 15-37 [facility] Comment on above: Performed By: #### C CARLYNM, CMP #### [facility] [address] [place] [address] Dr. Joselyn Coffey Bilirubin [Mass/Vol] 2.6 mg/dL Critically high 0.2-1.0 [facility] Comment on above: Performed By: #### C CARLYNM, CMP #### [facility] [address] [place] [address] Dr. Joselyn Coffey Calcium [Mass/Vol] 8.3 mg/dL Critically low 8.5-10.1 Th e [facility] Comment on above: Performed By: #### C CARLYNM, CMP #### [facility] [address] [place] [address] Dr. Joselyn Coffey Chloride [Moles/Vol] 99 mmol/L Normal 98-107 [facility] Comment on above: Performed By: #### C CARLYNM, CMP #### [facility] [address] [place] [address] Dr. Joselyn Coffey CO2 [Moles/Vol] 26.6 mmol/L Normal 21.0-32.0 [facility] Comment on above: Performed By: #### C CARLYNM, CMP #### [facility] [address] [place] [address] Dr. Joselyn Coffey Creatinine [Mass/Vol] 0.77 mg/dL Normal 0.70-1.30 [facility] Comment on above: Performed By: #### C ROSALINA, CMP #### [facility] [address] [place] [address] Dr. Joselyn Coffey EGFR-AF TUNISIAN >60 Normal >=60 [facility] Comment on above: Performed By: #### C ROSALINA, CMP #### [facility] [address] [place] [address] Dr. Joselyn Coffey EGFR-NON AF TUNISIAN >60 Normal >=60 [facility] Comment on above: Performed By: #### C CARLYNM, CMP #### [facility] [address] [place] [address] Dr. Joselyn Coffey Globulin (S) [Mass/Vol] 3.5 g/dL Normal T [facility] Comment on above: Performed By: #### C CARLYNM, CMP #### [facility] [address] [place] [address] Dr. Joselyn Coffey Glucose [Mass/Vol] 123 mg/dL Critically high 74-106 [facility] Comment on above: Performed By: #### C ROSALINA, CMP #### [facility] [address] [place] [address] Dr. Joselyn Coffey Potassium [Moles/Vol] 4.2 mmol/L Normal 3.5-5.1 [facility] Comment on above: Performed By: #### C ROSALINA, CMP #### [facility] [address] [place] [address] Dr. Joselyn Coffey Protein [Mass/Vol] 6.1 g/dL Critically low 6.4-8.2 Th [facility] Comment on above: Performed By: #### C ROSALINA, CMP #### [facility] [address] [place] [address] Dr. Joselyn Coffey Sodium [Moles/Vol] 131 mmol/L Critically low 136-145 Th [facility] Comment on above: Performed By: #### C ROSALINA, CMP #### [facility] [address] [place] [address] Dr. Joselyn Coffey Urea nitrogen [Mass/Vol] 11.0 mg/dL Normal 7.0-18.0 [facility] Comment on above: Performed By: #### C ROSALINA, CMP #### [facility] [address] [place] [address] Dr. Joselyn Coffey Urea nitrogen/Creatinine [Mass ratio] 14.3 mg/mg Normal [facility] Comment on above: Performed By: #### C ROSALINA, CMP #### [facility] [address] [place] [address] Dr. Joselyn Coffey TYPE AND SCREENon 11-13-2022 TYPE AND SCREEN Negative Normal [facility] Comment on above: Performed By: #### Sammy PROCTOR #### [facility] [address] [place] [address] Dr. Joselyn Coffey CBC W MANUAL DIFFon 11-01-19 ATYPICAL LYMPH # Normal [facility] Comment on above: Performed By: #### C ESTHELA #### [facility] [address] [place] [address] Dr. Joselyn Coffey ATYPICAL LYMPH % Normal [facility] Comment on above: Performed By: #### C BCMAN #### [facility] [address] [place] [address] Dr. Joselyn Coffey BAND # Normal 0.0-0.3 [facility] Comment on above: Performed By: #### C BCMAN #### [facility] [address] [place] [address] Dr. Joselyn Coffey BAND % Normal 0-5 [facility] Comment on above: Performed By: #### C BCMAN #### [facility] [address] [place] [address] Dr. Joselyn Coffey BASOM # 0.00 103/ul Normal 0.00-0.10 [facility] Comment on above: Performed By: #### C BCMAN #### [facility] [address] [place] [address] Dr. Joselyn Coffey BASOM % 0.0 % Critically low 0.2-2.0 [facility] Comment on above: Performed By: #### C BCDEV #### [facility] [address] [place] [address] Dr. Joselyn Coffey BLAST # Normal [facility] Comment on above: Performed By: #### C BCMAN #### [facility] [address] [place] [address] Dr. Joselyn Coffey BLAST % Normal [facility] Comment on above: Performed By: #### C BCDEV #### [facility] [address] [place] [address] Dr. Joselyn Coffey CORRECTED WBC Normal 4.0-11.0 [facility] Comment on above: Performed By: #### C BCMAN #### [facility] [address] [place] [address] Dr. Joselyn Coffey EOS # 0.00 103/ul Normal 0.00-0.70 [facility] Comment on above: Performed By: #### C BCMAN #### [facility] [address] [place] [address] Dr. Joselyn Coffey EOS% 0.0 % Critically low 0.9-7.0 [facility] Comment on above: Performed By: #### C ESTHELA #### [facility] [address] [address] [address] Joselyn Coffey HCT 36.5 % Critically low 42.0-54.0 [facility] Comment on above: Performed By: #### C ESTHELA #### [facility] [address] [address] [address] Joselyn Coffey HGB 13.2 g/dl Critically low 14.0-18.0 [facility] Comment on above: Performed By: #### C ESTHELA #### [facility] [address] [place] [address] Dr. Joselyn Coffey LYMPHM # 0.35 103/ul Critically low 1.20-3.80 [facility] Comment on above: Performed By: #### C ESTHELA #### [facility] [address] [place] [address] Dr. Joselyn Coffey LYMPHM% 7.0 % Critically low 20.5-60.0 [facility] Comment on above: Performed By: #### C ESTHELA #### [facility] [address] [place] [address] Dr. Joselyn Coffey MCH 31.9 pg Normal 25.9-34.0 [facility] Comment on above: Performed By: #### C ESTHELA #### [facility] [address] [place] [address] Dr. Joselyn Coffey MCHC 36.2 g/dl Critically high 29.9-35.2 [facility] Comment on above: Performed By: #### C ESTHELA #### [facility] [address] [place] [address] Dr. Joselyn Coffey MCV 88.2 fL Normal 80.0-94.0 [facility] Comment on above: Performed By: #### C ESTHELA #### [facility] [address] [place] [address] Dr. Joselyn Coffey METAMYELOCYTE # Normal [facility] Comment on above: Performed By: #### Sammy PROCTOR #### [facility] [address] [place] [address] Dr. Joselyn Coffey METAMYELOCYTE % Normal [facility] Comment on above: Performed By: #### C BCMAN #### [facility] [address] [place] [address] Dr. Joselyn Coffey MONOM# 0.35 103/ul Normal 0.30-0.80 [facility] Comment on above: Performed By: #### C BCMAN #### [facility] [address] [place] [address] Dr. Joselyn Coffey MONOM% 7.0 % Normal 1.7-12.0 [facility] Comment on above: Performed By: #### C BCMAN #### [facility] [address] [place] [address] Dr. Joselyn Coffey MPV 10.7 fL Normal 9.5-13.5 [facility] Comment on above: Performed By: #### C ESTHELA #### [facility] [address] [place] [address] Dr. Joselyn Coffey MYELOCYTE # Normal [facility] Comment on above: Performed By: #### C ESTHELA #### [facility] [address] [place] [address] Dr. Joselyn Coffey MYELOCYTE % Normal [facility] Comment on above: Performed By: #### C ESTHELA #### [facility] [address] [place] [address] Dr. Joselyn Coffey NRBC Normal [facility] Comment on above: Performed By: #### C BCDEV #### [facility] [address] [place] [address] Dr. Joselyn Coffey PLT 79 103/ul Critically low 150-450 [facility] Comment on above: Performed By: #### C BCMAN #### [facility] [address] [place] [address] Dr. Joselyn Coffey RBC 4.14 106/ul Critically low 4.70-6.10 [facility] Comment on above: Performed By: #### C BCDEV #### [facility] [address] [place] [address] Dr. Joselyn Coffey RDW 13.2 % Normal 11.0-15.0 [facility] Comment on above: Performed By: #### C ESTHELA #### [facility] [address] [place] [address] Dr. Joselyn Coffey SEG # 4.30 103/ul Normal 1.40-6.50 [facility] Comment on above: Performed By: #### C ESTHELA #### [facility] [address] [place] [address] Dr. Joselyn Coffey SEG % 86.0 % Critically high 43.0-75.0 [facility] Comment on above: Performed By: #### C ESTHELA #### [facility] [address] [place] [address] Dr. Joselyn oCffey WBC 5.0 103/ul Normal 4.0-11.0 [facility] Comment on above: Performed By: #### C ESTHELA #### [facility] [address] [place] [address] Dr. Joselyn Coffey MRSA NARES #1on 11-01-2022 MRSA NARES #1 Culture Observations : NO GROWTH OF MRSA AT 48 HOURS. Normal [facility] Comment on above: Performed By: #### C ESTHELA #### [facility] [address] [place] [address] Dr. Joselyn Coffey PROF CHEM 8 (BAS METB)on Anion gap [Moles/Vol] 12.7 mmol/L Normal Th [facility] Comment on above: Performed By: #### P TT, PT #### [facility] [address] [place] [address] Dr. Joselyn Coffey Calcium [Mass/Vol] 8.9 mg/dL Normal 8.5-10.1 [facility] Comment on above: Performed By: #### P TT, PT #### [facility] [address] [place] [address] Dr. Joselyn Coffey Chloride [Moles/Vol] 100 mmol/L Normal 98-107 [facility] Comment on above: Performed By: #### P TT, PT #### [facility] [address] [place] [address] Dr. Joselyn Coffey CO2 [Moles/Vol] 29.0 mmol/L Normal 21.0-32.0 [facility] Comment on above: Performed By: #### P TT, PT #### [facility] [address] [place] [address] Dr. Joselyn Coffey Creatinine [Mass/Vol] 1.06 mg/dL Normal 0.70-1.30 [facility] Comment on above: Performed By: #### P TT, PT #### [facility] [address] [address] [address] Joselyn Coffey EGFR-AF TUNISIAN >60 Normal >=60 [facility] Comment on above: Performed By: #### P TT, PT #### [facility] [address] [place] [address] Dr. Joselyn Coffey EGFR-NON AF TUNISIAN >60 Normal >=60 [facility] Comment on above: Performed By: #### P TT, PT #### [facility] [address] [place] [address] Dr. Joselyn Coffey Glucose [Mass/Vol] 278 mg/dL Critically high 74-106 T [facility] Comment on above: Performed By: #### P TT, PT #### [facility] [address] [place] [address] Dr. Joselyn Coffey Potassium [Moles/Vol] 4.7 mmol/L Normal 3.5-5.1 [facility] Comment on above: Performed By: #### P TT, PT #### [facility] [address] [place] [address] Dr. Joselyn Coffey Sodium [Moles/Vol] 137 mmol/L Normal 136-145 [facility] Comment on above: Performed By: #### P TT, PT #### [facility] Laboratory [address] [place] [address] Dr. Joselyn Coffey Urea nitrogen [Mass/Vol] 17.0 mg/dL Normal 7.0-18.0 [facility] Comment on above: Performed By: #### P TT, PT #### [facility] [address] [place] [address] Dr. Joselyn Coffey Urea nitrogen/Creatinine [Mass ratio] 16.0 mg/mg Normal [facility] Comment on above: Performed By: #### P TT, PT #### [facility] [address] [place] [address] Dr. Joselyn Coffey PROTIMEon 11-01-2022 INR Coag (PPP) [Relative time] 1.10 {INR} Normal [facility] Comment on above: Performed By: #### P TT, PT #### [facility] [address] [place] [address] Dr. Joselyn Coffey INR GUIDELINES SEE BELOW Normal [facility] Comment on above: Result Comment: SNOW RED INR: 2.0 - 3.0 CONDITIONS NOT LISTED BELOW 2.5 - 3.5 FOR PROSTHETIC HEART VALVE REPLACEMENT 2.5 - 3.5 RECURRENT THROMBOSIS Performed By: #### P TT, PT #### [facility] [address] [place] [address] Dr. Joselyn Coffey PT Coag (PPP) [Time] 11.6 s Normal 9.0-11.6 [facility] Comment on above: Performed By: #### P TT, PT #### [facility] [address] [place] [address] Dr. Joselyn Coffey PTTon 11-01-2022 aPTT Coag (Bld) [Time] 29.8 s Normal 22.3-36.2 Th [facility] Comment on above: Performed By: #### P TT, PT #### [facility] [address] [place] [address] Dr. Joselyn Coffey CTA ABD MARY JANE [...] by: ANDREA ARTEAGA Date: 2022-10-20 15:34 Normal [facility] BONE MARROW SCREENon 022 BONE MARROW SCR SEE BONE MARROW SPEC IAL REPORT FORM Normal [facility] Comment on above: Performed By: #### 5 0970 #### [facility] [address] [facility] [place] [address], [facility] CBC W/DIFFon 11-09-2021 ABS IMM GRANS 0.0 10*3/uL Normal 0.0-0.2 [facility] Comment on above: Performed By: #### 5 010, 66072 #### [facility] [address] [place] [address], [facility] ABS NEUTROPHILS 2.4 10*3/uL Normal 1.6-7.6 [facility] Comment on above: Performed By: #### 5 102, 56396 #### [facility] [address] [facility] [place] [address], [facility] ANISO Moderate Normal [facility] Comment on above: Performed By: #### 5 010, 73425 #### [facility] [address] [facility] [place] [address], [facility] Basophils (Bld) [#/Vol] 0.0 10*3/uL Normal 0.0-0.2 [facility] Comment on above: Performed By: #### 5 3, 82155 #### [facility] [address] [facility] [place] [address], [facility] Basophils/100 WBC (Bld) 0.6 % Normal 0.0-1.0 [facility] Comment on above: Performed By: #### 5 102, 68456 #### [facility] [address] [facility] [place] [address], [facility] ELLIPTOCYTES Slight Normal [facility] Comment on above: Performed By: #### 5 010, 86936 #### [facility] [address] [place] [address], [facility] Eosinophils (Bld) [#/Vol] 0.0 10*3/uL Normal 0.0-0.5 [facility] Comment on above: Performed By: #### 5 102, 98722 #### [facility] [address] [facility] [place] [address], [facility] Eosinophils/100 WBC (Bld) 1.2 % Normal 0.0-6.0 [facility] Comment on above: Performed By: #### 5 102, 53506 #### [facility] [address] [facility] [address] Erythrocyte distribution width (RBC) [Ratio] 26.7 % High 11.5-15.0 [facility] Comment on above: Performed By: #### 5 102, 55088 #### [facility] [address] [facility] [address] Hematocrit (Bld) [Volume fraction] 37.1 % Low 39.0-50.0 [facility] Comment on above: Performed By: #### 5 102, 35158 #### [facility] [address] [facility] [address] Hemoglobin (Bld) [Mass/Vol] 11.1 g/dL Low 13.0-17.0 [facility] Comment on above: Performed By: #### 5 010, 80561 #### [facility] [address] [facility]. [address] IMM PLATELET FRAC 4.6 % Normal 0.8-6.3 [facility] Comment on above: Performed By: #### 5 010, 71718 #### [facility] [address] [facility]. [address] IMMATURE GRANS 0.3 % Normal 0.0-1.0 [facility] Comment on above: Performed By: #### 5 010, 36939 #### [facility] [address] Lymphocytes (Bld) [#/Vol] 0.5 10*3/uL Low 1.2-4.0 [facility] Comment on above: Performed By: #### 5 102, 67597 #### [facility] [address] Lymphocytes/100 WBC (Bld) 13.5 % Low 20.0-45.0 [facility] Comment on above: Performed By: #### 5 102, 96833 #### [facility] [address] MCH (RBC) [Entitic mass] 26.9 pg Low 27.0-33.0 [facility] Comment on above: Performed By: #### 5 102, 63151 #### [facility] [address] MCHC (RBC) [Mass/Vol] 29.9 g/dL Low 32.0-35.0 [facility] Comment on above: Performed By: #### 5 102, 30272 #### [facility] [address] MCV (RBC) [Entitic vol] 90.0 fL Normal 82.0-98.0 T [facility] Comment on above: Performed By: #### 5 102, 50806 #### [facility] [address] Monocytes (Bld) [#/Vol] 0.5 10*3/uL Normal 0.1-1.0 [facility] Comment on above: Performed By: #### 5 102, 60499 #### [facility] [address] MONOS 14.0 % High 5.0-12.0 [facility] Comment on above: Performed By: #### 5 102, 82669 #### [facility] [address] Neutrophils/100 WBC (Bld) 70.4 % Normal 40.0-72.0 [facility] Comment on above: Performed By: #### 5 102, 86824 #### [facility] [address] [place] [address], [place] Nucleated RBC/100 WBC (Bld) [Ratio] 0 % Normal 0-0 [facility] Comment on above: Performed By: #### 5 102, 23884 #### [facility] [address] [place] [address], [place] OVALOCYTES Slight Normal [facility] Comment on above: Performed By: #### 5 102, 90566 #### [facility] [address] [place] [address], [place] PLAT CNT 91 10*3/uL Low 150-400 [facility] Comment on above: Performed By: #### 5 102, 17519 #### [facility] [address] [place] [address], [facility] POIK Moderate Normal [facility] Comment on above: Performed By: #### 5 102, 81327 #### [facility] [address] [place] [address], [place] RBC (Bld) [#/Vol] 4.12 10*6/uL Low 4.20-5.70 [facility] Comment on above: Performed By: #### 5 102, 82506 #### [facility] [address] [place] [address], [place] WBC (Bld) [#/Vol] 3.42 10*3/uL Low 4.00-10.60 [facility] Comment on above: Performed By: #### 5 102, 64080 #### [facility] [address] [place] [address], [place] COMP METABOLIC PANELon 11-09 Albumin [Mass/Vol] 4.0 g/dL Normal 3.5-5.7 [facility] Comment on above: Performed By: #### 0 0121, 40975, 69995, 85474, 18170, 77890 #### [facility] [address] [place] [address], [facility] ALKALINE PHOSPH 64 IU/L Normal 34-104 [facility] Comment on above: Performed By: #### 0 0121, 09516, 02296, 25228, 45623, 13100 #### [facility] [address] [place] [address], [facility] ALT [Catalytic activity/Vol] 39 U/L Normal 7-52 [facility] Comment on above: Performed By: #### 0 0121, 58885, 94238, 26323, 21357, 20307 #### [facility] [address] [place] [address], [facility] AST [Catalytic activity/Vol] 39 U/L Normal 13-39 [facility] Comment on above: Performed By: #### 0 0121, 70145, 66808, 34564, 10590, 97753 #### [facility] [address] [place] [address], [place] Bilirubin [Mass/Vol] 0.6 mg/dL Normal 0.3-1.0 [facility] Comment on above: Performed By: #### 0 0121, 26867, 57264, 31149, 58151, 77936 #### [facility] [address] [place] [address], [place] Calcium [Mass/Vol] 9.2 mg/dL Normal 8.6-10.3 [facility] Comment on above: Performed By: #### 0 0121, 07025, 19300, 56714, 72374, 32358 #### [facility] [address] [place] [address], [place] Chloride [Moles/Vol] 103 mmol/L Normal 98-107 [facility] Comment on above: Performed By: #### 0 0121, 37854, 78110, 21594, 71610, 70969 #### [facility] [address] [place] [address], [place] CO2 [Moles/Vol] 27 mmol/L Normal 21-31 [facility] Comment on above: Performed By: #### 0 0121, 90269, 10306, 34839, 13449, 38145 #### [facility] [address] [place] [address], [place] Creatinine [Mass/Vol] 0.80 mg/dL Normal 0.70-1.30 [facility] Comment on above: Performed By: #### 0 0121, 60186, 50902, 33680, 02330, 49782 #### [facility] [address] [place] [address], [place] GFR/1.73 sq M.predicted among blacks MDRD (S/P/Bld) [Vol rate/Area] mL/min/{1.73_m2} Normal >60 [facility] Comment on above: Result Comment: Calc ulation may not be valid for patients over 70 years Performed By: #### 0 0121, 89158, 84912, 90465, 50603, 92818 #### [facility] [address] [place] [address], [place] GFR/1.73 sq M.predicted among non-blacks MDRD (S/P/Bld) [Vol rate/Area] mL/min/{1.73_m2} Normal >60 [facility] Comment on above: Result Comment: Calc ulation may not be valid for patients over 70 years Performed By: #### 0 0121, 64367, 10245, 07628, 45244, 27298 #### [facility] [address] [place] [address], [place] Glucose [Mass/Vol] 78 mg/dL Normal 70-100 [facility] Comment on above: Performed By: #### 0 0121, 93154, 40559, 96338, 77711, 96884 #### [facility] [address] [place] [address], [facility] Potassium [Moles/Vol] 3.9 mmol/L Normal 3.5-5.1 [facility] Comment on above: Performed By: #### 0 0121, 02464, 09846, 48009, 30175, 48675 #### [facility] [address] [place] [address], [facility] Protein [Mass/Vol] 7.3 g/dL Normal 6.0-8.3 [facility] Comment on above: Performed By: #### 0 0121, 90457, 69068, 87996, 98344, 18669 #### [facility] [address] [place] [address], [facility] Sodium [Moles/Vol] 137 mmol/L Normal 136-145 [facility] Comment on above: Performed By: #### 0 0121, 31737, 08926, 26467, 24156, 00097 #### [facility] [address] [place] [address], [place] Urea nitrogen [Mass/Vol] 11 mg/dL Normal 7-25 [facility] Comment on above: Performed By: #### 0 0121, 53988, 54993, 21931, 87664, 33613 #### [facility] [address] [place] [address], [place] FERRITINon 11-09-2021 Ferritin [Mass/Vol] 34 ng/mL Normal 24-336 [facility] Comment on above: Performed By: #### 0 0121, 18640, 88950, 64713, 45542, 37027 #### [facility] [address] [place] [address], [place] FOLATE SERUMon 11-09-2021 SERUM FOLATE 12.15 ng/mL Normal 6.60-1000.00 [facility] Comment on above: Result Comment: Norm al range reflects World Health Organization International Standard Performed By: #### 0 0121, 61936, 95567, 58242, 49006, 95420 #### [facility] [address] [place] [address], [facility] HAPTOGLOBINon 11-09-2021 HAPTOGLOBIN 43 mg/dL Normal 26-164 [facility] Comment on above: Performed By: #### 5 0103, 56053 #### [facility] [address] [facility] [place] [address], [facility] HEMATOLOGY COMPLETE EVALUATI ON siPARDIGMon 11-09-2021 RESULT Results faxed to ordering physician and sent to HIM Normal [facility] Comment on above: Result Comment: Test performed by [facility] * [address] [place] [address], [address] * [place], [place] * [phone] [employer] Machine Operator: Aguilar Winston M.D. RESULTS FAXED TO [phone] Performed By: #### 5 0103, 12867 #### [facility] [address] [facility] [place] [address], [facility] LDH BLOODon 11-09-2021 LDH 114 Units/L Low 140-271 [facility] Comment on above: Performed By: #### 0 0121, 56414, 72874, 52752, 16040, 61294 #### [facility] [address] [place] [address], [facility] RETICULOCYTE PANELon 022 ABSOLUTE RETICULOCYTE 0.0548 10*6/uL Normal 0.02 50-0.100 0 [facility] Comment on above: Performed By: #### 5 0103, 15113 #### [facility] [address] [place] [address], [facility] IMMATURE RETICULOCYTE FRACTION 11.0 % Normal 2.0-16.0 [facility] Comment on above: Performed By: #### 5 0103, 20341 #### [facility] [address] RETIC COUNT 1.33 % Normal 0.50-1.80 [facility] Comment on above: Performed By: #### 5 0103, 72646 #### [facility] [address] RETICULOCYTE HEMOGLOBIN 42.0 pg High 28.0-36.0 [facility] Comment on above: Performed By: #### 5 0103, 13856 #### [facility] [address] [facility]. [address] TIBC- INCLUDES IRONon 2021 FE SATURATION 16 % Low 20-50 [facility] Comment on above: Performed By: #### 0 0121, 67264, 35458, 42778, 16168, 77457 #### [facility] [address] [facility]. [address] Iron [Mass/Vol] 67 ug/dL Normal 50-212 [facility] Comment on above: Performed By: #### 0 0121, 33621, 32298, 07322, 68820, 16839 #### [facility] [address] [facility] [place] [address], [facility] TIBC 420 mcg/dL Normal 250-450 [facility] Comment on above: Performed By: #### 0 0121, 77308, 35583, 26200, 28468, 35948 #### [facility] [address] [facility] [place] [place] [address], [facility] UIBC 353 mcg/dL Normal 155-355 [facility] Comment on above: Performed By: #### 0 0121, 06120, 60821, 90507, 01082, 17833 #### [facility] [address] VITAMIN B12on 11-09-2021 Cobalamin (Vitamin B12) [Mass/Vol] 733 pg/mL Normal 180-914 [facility] Comment on above: Result Comment: REFE RENCE RANGES: 180-914 pg/mL Normal 145-179 pg/mL Indeterminate <145 pg/mL Deficient Performed By: #### 0 0121, 45164, 13055, 20133, 43234, 45595 #### [facility] [address] [facility] [place] [address], [facility] CBC W/DIFFon 09-15-2021 ABS IMM GRANS 0.0 10*3/uL Normal 0.0-0.2 [facility] Comment on above: Performed By: #### 5 0103 #### [facility] [address] [place] [address], [facility] ABS NEUTROPHILS 1.7 10*3/uL Normal 1.6-7.6 [facility] Comment on above: Performed By: #### 5 0103 #### [facility] [address] ANISO Moderate Normal [facility] Comment on above: Performed By: #### 5 0103 #### [facility] [address] [facility] [place] [address], [facility] Basophils (Bld) [#/Vol] 0.0 10*3/uL Normal 0.0-0.2 [facility] Comment on above: Performed By: #### 5 0103 #### [facility] [address] [facility] [place] [address], [facility] Basophils/100 WBC (Bld) 0.5 % Normal 0.0-1.0 [facility] Comment on above: Performed By: #### 5 0103 #### [facility] [address] [facility] [place] [address], [facility] ELLIPTOCYTES Slight Normal [facility] Comment on above: Performed By: #### 5 0103 #### [facility] [address] [facility] [place] [address], [facility] Eosinophils (Bld) [#/Vol] 0.0 10*3/uL Normal 0.0-0.5 [facility] Comment on above: Performed By: #### 5 0103 #### [facility] [address] [facility] [place] [address], [facility] Eosinophils/100 WBC (Bld) 0.9 % Normal 0.0-6.0 [facility] Comment on above: Performed By: #### 5 0103 #### [facility] [address] [facility] [address] Erythrocyte distribution width (RBC) [Ratio] 18.6 % High 11.5-15.0 [facility] Comment on above: Performed By: #### 5 0103 #### [facility] [address] [facility] [address] Hematocrit (Bld) [Volume fraction] 24.4 % Low 39.0-50.0 [facility] Comment on above: Performed By: #### 5 0103 #### [facility] [address] [facility] [address] Hemoglobin (Bld) [Mass/Vol] 6.8 g/dL Low 13.0-17.0 [facility] Comment on above: Performed By: #### 5 0103 #### [facility] [address] [facility]. [address] IMM PLATELET FRAC 6.0 % Normal 0.8-6.3 [facility] Comment on above: Performed By: #### 5 0103 #### [facility] [address] [facility] [place] [address], [facility] IMMATURE GRANS 0.0 % Normal 0.0-1.0 [facility] Comment on above: Performed By: #### 5 0103 #### [facility] [address] Lymphocytes (Bld) [#/Vol] 0.2 10*3/uL Low 1.2-4.0 [facility] Comment on above: Performed By: #### 3 #### [facility] [address] [place] [address], [facility] Lymphocytes/100 WBC (Bld) 10.9 % Low 20.0-45.0 [facility] Comment on above: Performed By: #### 102 #### [facility] [address] MCH (RBC) [Entitic mass] 22.1 pg Low 27.0-33.0 [facility] Comment on above: Performed By: #### 102 #### [facility] [address] MCHC (RBC) [Mass/Vol] 27.9 g/dL Low 32.0-35.0 [facility] Comment on above: Performed By: #### 5 102 #### [facility] [address] MCV (RBC) [Entitic vol] 79.2 fL Low 82.0-98.0 [facility] Comment on above: Performed By: #### 5 3 #### [facility] [address] [place] [address], [facility] Monocytes (Bld) [#/Vol] 0.3 10*3/uL Normal 0.1-1.0 [facility] Comment on above: Performed By: #### 102 #### [facility] [address] MONOS 12.2 % High 5.0-12.0 [facility] Comment on above: Performed By: #### 5 102 #### [facility] [address] [place] [address], [facility] Neutrophils/100 WBC (Bld) 75.5 % High 40.0-72.0 [facility] Comment on above: Performed By: #### 5 3 #### [facility] [address] [place] [address], [place] Nucleated RBC/100 WBC (Bld) [Ratio] 0 % Normal 0-0 [facility] Comment on above: Performed By: #### 5 102 #### [facility] [address] [place] [address], [facility] OVALOCYTES Slight Normal [facility] Comment on above: Performed By: #### 5 102 #### [facility] [address] [place] [address], [facility] PLAT CNT 91 10*3/uL Low 150-400 [facility] Comment on above: Performed By: #### 5 3 #### [facility] [address] [facility] [place] [address], [facility] POIK Moderate Normal [facility] Comment on above: Performed By: #### 5 102 #### [facility] [address] [facility] [place] [address], [facility] POLY Slight Normal [facility] Comment on above: Performed By: #### 5 102 #### [facility] [address] [facility] [place] [address], [facility] RBC (Bld) [#/Vol] 3.08 10*6/uL Low 4.20-5.70 [facility] Comment on above: Performed By: #### 5 102 #### [facility] [address] [place] [address], [place] WBC (Bld) [#/Vol] 2.21 10*3/uL Low 4.00-10.60 [facility] Comment on above: Performed By: #### 5 102 #### [facility] [address] [place] [address], [facility] COMP METABOLIC PANELon 09-15 Albumin [Mass/Vol] 3.6 g/dL Normal 3.5-5.7 [facility] Comment on above: Performed By: #### 5 102, 37846 #### [facility] [address] [place] [address], [facility] ALKALINE PHOSPH 57 IU/L Normal 34-104 [facility] Comment on above: Performed By: #### 5 102, 22755 #### [facility] [address] [place] [address], [place] ALT [Catalytic activity/Vol] 24 U/L Normal 7-52 [facility] Comment on above: Performed By: #### 102, 49658 #### [facility] [address] [place] [address], [facility] AST [Catalytic activity/Vol] 29 U/L Normal 13-39 [facility] Comment on above: Performed By: #### 5 102, 52521 #### [facility] [address] [place] [address], [facility] Bilirubin [Mass/Vol] 0.5 mg/dL Normal 0.3-1.0 [facility] Comment on above: Performed By: #### 5 102, 07579 #### [facility] [address] [place] [address], [facility] Calcium [Mass/Vol] 8.8 mg/dL Normal 8.6-10.3 [facility] Comment on above: Performed By: #### 5 102, 49296 #### [facility] [address] [place] [address], [place] Chloride [Moles/Vol] 104 mmol/L Normal 98-107 [facility] Comment on above: Performed By: #### 5 102, 06828 #### [facility] [address] [place] [address], [place] CO2 [Moles/Vol] 26 mmol/L Normal 21-31 [facility] Comment on above: Performed By: #### 5 010, 23154 #### [facility] [address] [place] [address], [place] Creatinine [Mass/Vol] 0.79 mg/dL Normal 0.70-1.30 [facility] Comment on above: Performed By: #### 5 010, 30693 #### [facility] [address] [place] [address], [place] GFR/1.73 sq M.predicted among blacks MDRD (S/P/Bld) [Vol rate/Area] mL/min/{1.73_m2} Normal >60 [facility] Comment on above: Result Comment: Calc ulation may not be valid for patients over 70 years Performed By: #### 5 010, 49323 #### [facility] [address] [place] [address], [place] GFR/1.73 sq M.predicted among non-blacks MDRD (S/P/Bld) [Vol rate/Area] mL/min/{1.73_m2} Normal >60 [facility] Comment on above: Result Comment: Calc ulation may not be valid for patients over 70 years Performed By: #### 5 0103, 87950 #### [facility] [address] [place] [address], [place] Glucose [Mass/Vol] 123 mg/dL High 70-100 [facility] Comment on above: Performed By: #### 5 0103, 55109 #### [facility] [address] [place] [address], [place] Potassium [Moles/Vol] 3.8 mmol/L Normal 3.5-5.1 [facility] Comment on above: Performed By: #### 5 010, 93416 #### [facility] [address] [place] [address], [facility] Protein [Mass/Vol] 6.8 g/dL Normal 6.0-8.3 [facility] Comment on above: Performed By: #### 5 0103, 96514 #### [facility] [address] [place] [address], [place] Sodium [Moles/Vol] 137 mmol/L Normal 136-145 [facility] Comment on above: Performed By: #### 5 0103, 60557 #### [facility] [address] [place] [address], [facility] Urea nitrogen [Mass/Vol] 10 mg/dL Normal 7-25 The [facility] Comment on above: Performed By: #### [id number] #### [facility] [address] [place] [address], [facility] Vital Signs Date Time Vital Sign Value Performing Clinician Facility 07-19-2023 13:00-0400 Diastolic blood pressure 74 mm[Hg] Robert Gomez Other [facility] Other 07-19-2023 13:00-0400 SaO2% (BldA) [Mass fraction] 99 % Robert Gomez Other [facility] Other 07-19-2023 13:00-0400 Systolic blood pressure 136 mm[Hg] Rboert Gomez Other [facility] Other 05-09-2023 09:23-0400 Blood Pressure Location Ivaniabinh Vickey [facility] 05-09-2023 09:23-0400 Diastolic blood pressure 63 mm[Hg] Erwin Hurd [facility] 05-09-2023 09:23-0400 Heart rate 97 /min Erwin Hurd [facility] 05-09-2023 09:23-0400 SaO2% (BldA) [Mass fraction] 99 % Erwin Vickey [facility] 05-09-2023 09:23-0400 Systolic blood pressure 129 mm[Hg] Erwin Vickey [facility] 04-08-2023 08:29-0400 Diastolic blood pressure 56 mm[Hg] Erwin Vickey [facility] 04-08-2023 08:29-0400 Heart rate 98 /min Erwin Vickey [facility] 04-08-2023 08:29-0400 Mean blood pressure 82 mm[Hg] Erwin Vickey [facility] 04-08-2023 08:29-0400 Systolic blood pressure 134 mm[Hg] Erwin Vickey [facility] 04-08-2023 08:29-0400 Heart rate 100 /min Erwin Vickey [facility] 04-08-2023 08:29-0400 SaO2% (BldA) [Mass fraction] 100 % Erwin Vickey [facility] 04-08-2023 08:29-0400 Respiratory rate 17 /min Erwin Vickey [facility] 04-08-2023 08:29-0400 Diastolic blood pressure 66 mm[Hg] Erwin Vickey [facility] 04-08-2023 08:29-0400 Mean blood pressure 85 mm[Hg] Erwin Vickey [facility] 04-08-2023 08:29-0400 Systolic blood pressure 124 mm[Hg] Erwin Vickey [facility] 03-10-2023 12:03-0400 Hourly Rounding Ramos HERRING [facility] 03-10-2023 12:03-0400 Promise to Return [facility] 03-10-2023 11:37-0400 Heart rate 75 /min [facility] 03-10-2023 11:37-0400 SaO2% (BldA) [Mass fraction] 100 % [facility] 03-10-2023 11:37-0400 Body temperature 97.7 [degF] [facility] 03-10-2023 11:37-0400 Diastolic blood pressure 54 mm[Hg] [facility] 03-10-2023 11:37-0400 Mean blood pressure 81 mm[Hg] [facility] 03-10-2023 11:37-0400 Systolic blood pressure 136 mm[Hg] [facility] 03-10-2023 11:00-0400 Hourly Rounding [facility] 03-10-2023 11:00-0400 Promise to Return [facility] 03-10-2023 10:00-0400 Hourly Rounding [facility] 03-10-2023 10:00-0400 Promise to Return [facility] 03-10-2023 08:48-0400 gluc 116 mg/dL [facility] 03-10-2023 08:13-0400 Heart rate 118 /min [facility] 03-10-2023 08:13-0400 SaO2% (BldA) [Mass fraction] 96 % [facility] 03-10-2023 08:13-0400 Body temperature 98.06 [degF] [facility] 03-10-2023 08:12-0400 Diastolic blood pressure 69 mm[Hg] [facility] 03-10-2023 08:12-0400 Mean blood pressure 90 mm[Hg] [facility] 03-10-2023 08:12-0400 Systolic blood pressure 131 mm[Hg] [facility] 03-10-2023 00:40-0400 Blood Pressure Location [facility] 03-10-2023 00:40-0400 Body temperature 97.7 [degF] [facility] 03-10-2023 00:40-0400 Diastolic blood pressure 65 mm[Hg] [facility] 03-10-2023 00:40-0400 Heart rate 120 /min [facility] 03-10-2023 00:40-0400 Mean blood pressure 80 mm[Hg] [facility] 03-10-2023 00:40-0400 Respiratory rate 18 /min [facility] 03-10-2023 00:40-0400 SaO2% (BldA) [Mass fraction] 97 % [facility] 03-10-2023 00:40-0400 Systolic blood pressure 109 mm[Hg] [facility] 03-09-2023 17:18-0400 gluc 98 mg/dL [facility] 03-09-2023 11:50-0400 gluc 219 mg/dL [facility] 03-09-2023 09:22-0400 Heart rate 116 /min [facility] 03-09-2023 03:42-0400 Mean blood pressure 94 mm[Hg] [facility] 03-08-2023 16:08-0400 Mean blood pressure 100 mm[Hg] [facility] 03-08-2023 16:00-0400 Respiratory rate 18 /min [facility] 03-08-2023 11:00-0400 Respiratory rate 16 /min [facility] 03-08-2023 05:51-0400 Body temperature 97.16 [degF] [facility] 03-08-2023 05:51-0400 Mean blood pressure 105 mm[Hg] [facility] 03-07-2023 21:15-0400 Body temperature 98.06 [degF] [facility] 03-06-2023 09:34-0400 Heart rate 92 /min [facility] 03-05-2023 08:00-0400 Heart rate 84 /min [facility] 03-03-2023 12:51-0400 Body temperature 98.42 [degF] [facility] 03-03-2023 12:51-0400 Respiratory rate 17 /min [facility] 03-03-2023 12:40-0400 Respiratory rate 18 /min [facility] 03-03-2023 12:35-0400 Respiratory rate 18 /min [facility] 03-03-2023 12:26-0400 Body temperature 98.06 [degF] [facility] 03-01-2023 18:04-0400 Heart rate 120 /min [facility] 03-01-2023 17:45-0400 Heart rate 113 /min [facility] 03-01-2023 16:45-0400 Heart rate 108 /min [facility] 02-23-2023 11:14-0400 gluc [facility] 02-17-2023 10:28-0400 [facility] 02-17-2023 10:28-0400 Diastolic blood pressure 63 mm[Hg] Erwin Hurd [facility] 02-17-2023 10:28-0400 Heart rate 108 /min Erwin Hurd [facility] 02-17-2023 10:28-0400 SaO2% (BldA) [Mass fraction] 100 % Erwin Hurd [facility] 02-17-2023 10:28-0400 Systolic blood pressure 117 mm[Hg] Erwin Hurd [facility] 02-15-2023 16:53-0400 Diastolic blood pressure 85 mm[Hg] Brennon Hartmane [facility] 02-15-2023 16:53-0400 Heart rate 108 /min Brennon Nancy [facility] 02-15-2023 16:53-0400 Mean blood pressure 109 mm[Hg] Brennon Nancy [facility] 02-15-2023 16:53-0400 Respiratory rate 18 /min Brennon Nancy [facility] 02-15-2023 16:53-0400 SaO2% (BldA) [Mass fraction] 96 % Brennon Nancy [facility] 02-15-2023 16:53-0400 Systolic blood pressure 156 mm[Hg] Brennon Nancy [facility] 02-15-2023 16:00-0400 Diastolic blood pressure 66 mm[Hg] Brennon Nancy [facility] 02-15-2023 16:00-0400 Heart rate 109 /min Brennon Nancy [facility] 02-15-2023 16:00-0400 Respiratory rate 16 /min Brennon Nancy [facility] 02-15-2023 16:00-0400 SaO2% (BldA) [Mass fraction] 100 % Brennon Nancy [facility] 02-15-2023 16:00-0400 Systolic blood pressure 154 mm[Hg] Brennon Nancy [facility] 02-15-2023 15:00-0400 Diastolic blood pressure 71 mm[Hg] Brennon Cruz [facility] 02-15-2023 15:00-0400 Heart rate 91 /min Brennon Cruz [facility] 02-15-2023 15:00-0400 SaO2% (BldA) [Mass fraction] 99 % Brennon Cruz [facility] 02-15-2023 15:00-0400 Systolic blood pressure 155 mm[Hg] Brennon Cruz [facility] 02-15-2023 11:02-0400 Body temperature 98.06 [degF] Brennon Cruz [facility] 02-15-2023 11:02-0400 Heart rate 118 /min Brennon Cruz [facility] 02-10-2023 13:15-0400 Blood [facility] 02-10-2023 13:15-0400 Diastolic blood pressure 75 mm[Hg] Erwin Vickey [facility] 02-10-2023 13:15-0400 Heart rate 89 /min Erwin Vickey [facility] 02-10-2023 13:15-0400 SaO2% (BldA) [Mass fraction] 100 % Mohamed Vickey [facility] 02-10-2023 13:15-0400 Systolic blood pressure 119 mm[Hg] Mohamed Vickey [facility] 01-06-2023 11:40-0400 Blood Pressure Location Mohbinh Vickey [facility] 01-06-2023 11:40-0400 Diastolic blood pressure 60 mm[Hg] Mohbinh Vickey [facility] 01-06-2023 11:40-0400 Heart rate 98 /min Mohamed Vickey [facility] 01-06-2023 11:40-0400 SaO2% (BldA) [Mass fraction] 99 % Mohamed Vickey [facility] 01-06-2023 11:40-0400 Systolic blood pressure 130 mm[Hg] Mohamed Vickey [facility] 12-23-2022 14:35-0400 Blood Pressure Location Mohamed Vickey [facility] 12-23-2022 14:35-0400 Diastolic blood pressure 70 mm[Hg] Mohamed Vickey [facility] 12-23-2022 14:35-0400 Heart rate 96 /min Mohamed Vickey [facility] 12-23-2022 14:35-0400 SaO2% (BldA) [Mass fraction] 100 % Mohamed Vickey [facility] 12-23-2022 14:35-0400 Systolic blood pressure 120 mm[Hg] Mohamed Vickey [facility] 12-09-2022 11:43-0500 Blood Pressure Location Mohbinh Vickey [facility] 12-09-2022 11:43-0500 Diastolic blood pressure 69 mm[Hg] Mohamed Vickey [facility] 12-09-2022 11:43-0500 Heart rate 88 /min Mohamed Vickey [facility] 12-09-2022 11:43-0500 SaO2% (BldA) [Mass fraction] 96 % Mohamed Viceky [facility] 12-09-2022 11:43-0500 Systolic blood pressure 105 mm[Hg] Erwin Hurd [facility] 11-22-2022 11:42-0500 Blood Pressure Location Erwin Hurd [facility] 11-22-2022 11:42-0500 Diastolic blood pressure 80 mm[Hg] Erwin Hurd [facility] 11-22-2022 11:42-0500 Heart rate 75 /min Erwin Hurd [facility] 11-22-2022 11:42-0500 SaO2% (BldA) [Mass fraction] 98 % Erwin Hurd [facility] 11-22-2022 11:42-0500 Systolic blood pressure 130 mm[Hg] Erwin Hurd [facility] Encounters Encounter Date Encounter Type Care Provider Facility Start: 04-09-2024 End: 04-09-2024 ambulatory [facility] Start: 04-05-2024 End: 04-05-2024 ambulatory [facility] Start: 03-22-2024 End: 03-22-2024 ambulatory [facility] Start: 03-13-2024 End: 03-13-2024 ambulatory [facility] Start: 03-06-2024 End: 03-06-2024 ambulatory [facility] Start: 02-16-2024 End: 02-16-2024 ambulatory [facility] Start: 02-09-2024 End: 03-10-2024 ambulatory NATY MANNING [facility] Start: 02-02-2024 End: 02-02-2024 ambulatory [facility] Start: 01-19-2024 End: 01-19-2024 ambulatory Jacob Bernardo Facility:[facility] Start: 01-19-2024 End: 01-19-2024 ambulatory MD Jacob Bernardo Work Phone: [facility] Work Phone: Start: 01-19-2024 End: 01-19-2024 Departed Referred MD Jacob Bernardo Work Phone: [facility] Start: 01-04-2024 End: 01-04-2024 ambulatory TANJA [facility] Start: 12-23-2023 Encounter for other preprocedural examination [facility] Start: 12-21-2023 Encounter for other preprocedural examination [facility] Start: 12-21-2023 End: 12-24-2023 Evaluation and management of inpatient [facility] Start: 12-16-2023 ambulatory [facility] Start: 12-07-2023 Orders Only Angeles Mendes [employer]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[employer] Work Phone: [facility] Comment on above: Anemia, unspecified type (Primary Dx) Start: 12-01-2023 End: 12-01-2023 ambulatory ANGELES MENDES [facility] Start: 11-30-2023 ambulatory TANJA [facility] Start: 11-19-2023 Evaluation and management of inpatient MONA JAMESON [facility] Start: 11-18-2023 [facility]: 11-18-2023 Evaluation and management of inpatient LEXUSAMY FULLER [facility] Start: 11-17-2023 Emergency department patient visit REBECCA ZUNIGA [facility] Start: 11-17-2023 End: 11-21-2023 Evaluation and management of inpatient EVELYN CLARK [facility] Start: 11-03-2023 [facility] Start: 11-02-2023 Evaluation and management of inpatient TANJA [facility] Start: 11-02-2023 End: 11-08-2023 Evaluation and management of inpatient ANJELICA [facility] Start: 11-02-2023 ambulatory TANJA [facility] Start: 10-31-2023 End: 11-24-2023 Pre-admission assessment Master Garcia [facility] Start: 10-26-2023 ambulatory TANJA [facility] Start: 10-26-2023 End: 10-26-2023 ambulatory [facility] Start: 10-19-2023 End: 10-19-2023 ambulatory [facility] Start: 10-17-2023 End: 10-17-2023 ambulatory SALINA SLADE [facility] Start: 10-17-2023 End: [facility] Start: 10-12-2023 End: 10-13-2023 Emergency department patient visit GIAN HORTA [facility] Start: 10-12-2023 End: 10-12-2023 ambulatory [facility] Start: 10-05-2023 End: 10-05-2023 ambulatory [facility] Start: 09-28-2023 End: 10-10-2023 ambulatory NATY Savage NIGEL [facility] Start: 09-21-2023 Evaluation and management of inpatient JUHI ALLEN [facility] Start: 09-19-2023 Evaluation and management of inpatient TANJA [facility] Start: 09-18-2023 [facility]: 09-18-2023 End: 09-26-2023 Evaluation and management of inpatient ROSSANA MIRZA [facility] Start: 09-18-2023 Emergency department patient visit YASIR Azar CRISTOPHER [facility] Start: 08-31-2023 End: 08-31-2023 [facility] Start: 07-21-2023 Telephone encounter Robert Gomez [facility] Start: 07-21-2023 End: 07-21-2023 ambulatory Robert Houghey Other [employer] Other Start: 07-19-2023 End: 07-19-2023 ambulatory Robert Gomez Other [facility] Other Start: 07-19-2023 Office outpatient vi sit 25 minutes Robert Gomez [facility] Start: 06-20-[address] [facility] Start: 05-16-[address] [facility] Start: 05-09-2023 End: 05-10-2023 ambulatory MD Erwin Hurd Facility:[facility] Start: 05-09-2023 End: 05-09-2023 Patient encounter procedure Erwin Hurd [facility] Start: 04-11-2023 End: 04-11-2023 ambulatory MD Erwin Hurd Facility:[facility] Start: 04-08-2023 End: 04-09-2023 ambulatory MD Erwin Hurd Facility:[facility] Start: 04-08-2023 End: 04-08-2023 Patient encounter procedure Erwin Hurd [facility] Start: 04-04-2023 End: 04-05-2023 ambulatory MD Erwin Hurd Facility:[facility] Start: 04-04-2023 End: 04-04-2023 Patient encounter procedure Erwin Hurd [facility] Start: 03-30-2023 End: 04-14-2023 Pre-admission assessment Erwin Hurd [facility] Start: 03-17-2023 End: 03-18-2023 ambulatory MD Erwin Hurd Facility:[facility] Start: 03-08-2023 End: 03-09-2023 ambulatory Bekah LAUREN Facility:[facility] Start: 02-23-2023 End: 03-10-2023 Evaluation and management of inpatient Ramos HERRING [facility] Start: 02-17-2023 End: 02-17-2023 Patient encounter procedure Erwin Hurd [facility] Start: 02-15-2023 End: 02-15-2023 Emergency department patient visit Brennon Cruz [facility] Start: 02-15-2023 End: 02-16-2023 Pre-admission assessment Erwin Hurd [facility] Start: 02-14-2023 End: 02-16-2023 Pre-admission assessment Erwin Hurd [facility] Start: 02-10-2023 End: 02-10-2023 Patient encounter procedure Erwin Hurd [facility] Start: 02-09-2023 End: 02-09-[address] GIAN HORTA Facility:[facility] Start: 01-29-2023 End: 01-29-2023 ambulatory UNKNOWN PROVIDER Facility:[facility] Start: 01-29-2023 End: 01-29-[address] GIAN HORTA Facility:[facility] Start: 01-06-2023 End: 01-06-2023 Patient encounter procedure Erwin Hurd [facility] Start: 12-23-2022 End: 12-23-2022 Patient encounter procedure Erwin Hurd [facility] Start: 12-09-2022 End: 12-09-2022 Patient encounter procedure Erwin Hurd [facility] Start: 11-29-2022 End: 11-30-2022 Pre-admission assessment Erwin Hurd [facility] Start: 11-22-2022 End: 11-22-2022 Patient encounter procedure Erwin Hurd [facility] Start: 11-13-2022 End: 11-15-2022 ambulatory [facility] Start: 11-13-2022 End: 11-13-[address] GIAN HORTA Facility:[facility] Start: 11-08-2022 End: 01-07-2023 Pre-admission assessment GIAN HORTA JR [facility] Start: 11-03-2022 Encounter for other preprocedural examination ERWIN HURD [facility] Start: 11-01-2022 End: 11-02-2022 ambulatory IVANIABINH VICKEY Facility:[facility] Start: 11-01-2022 End: 11-02-2022 Encounter for other preprocedural examination ERWIN HURD Facility:[facility] Start: 10-20-2022 End: 10-21-[address] MARCO A OSWALD Facility:[facility] Start: 05-12-2021 End: 05-13-2021 ambulatory GIAN HORTA Facility:[facility] Procedures Date Procedure Procedure Detail Performing Clinician Start: 04-09-2024 Follow-up visit MILLI PITTMAN Start: 10-17-2023 Follow-up visit MILLI Anu ZAIN Start: 04-11-2023 Surgical debridement of wound [facility] Start: 03-03-2023 Amputation above-knee A haley HERRING Start: 11-29-2022 H/O: major vascular surgery Erwin Hurd Appendectomy Alaa ALAHMAD Cholecystectomy Alaa ALAHMAD Coronary artery bypa ss grafts x 2 Alaa ALAHMAD Femorofemoral crosso bharath bypass graft [facility] Vascular surgery (qu alifier value) Alaa ALAHMAD Vascular surgery (qu alifier value) [facility] Plan of Treatment Date Care Activity Detail Author Start: 10-12-2024 Adult BMI Screening [facility]ening [facility] Start: 10-12-2024 Tobacco Screening Tobacco Screening [facility] Start: 06-10-2023 COVID-19 Vaccine ( season) COVID-19 Vaccine ( season) [facility] Start: 06-10-2023 Influenza vaccination Influenza Vaccine [facility] Start: 12-12-2011 Fall Risk Screening Fall Risk Screening [facility] Start: 1996 Administration of varicella zoster vaccine Zoster (Shingles) [facility] 2[facility] Start: 1965 DTaP,Tdap and Td Vaccines (1 - Tdap) DTaP,Tdap and Td Vaccines (1 - Tdap) [facility] Start: 1958 Depression Screening Depression Screening [facility] Start: 1946 Medicare Annual Wellness Visit Medicare Annual Wellness Visit [facility] Payers Date Payer Category Payer Self-pay 2022 Private Health Insurance 2004 Medicare MEDICARE MEDICAR E PART A & B [id number] 2004-Present [phone] [address] [place] [address] [id number] 1959 Medicare [id number] 1959 Private Health Insurance CLI [id number] 1946 Unknown [id number] 2.16.840.1.211443.3.579.2.6 47 1946 Unknown [id number] 2.16.840.1.162455.3.579.2.7 32 1946 Unknown [id number] 2.16.840.1.505249.3.579.2.7 32 1946 Unknown [id number] 2.16.840.1.203673.3.579.2.5 93 1946 Unknown [id number] 2.16.840.1.788630.3.579.2.5 93 1946 Unknown [id number] 2.16.840.1.322013.3.579.2.5 93 1946 Unknown [id number] 2.16.840.1.872901.3.579.2.5 93 1946 Unknown [id number] 2.16.840.1.982550.3.579.2.5 93 1946 Unknown [id number] 2.16.840.1.520761.3.579.2.3 56 1946 Unknown [id number] 2.16.840.1.314242.3.579.2.7 27 1946 Unknown [id number] 2.16.840.1.833274.3.579.2.7 27 1946 Unknown [id number] 2.16.840.1.435644.3.579.2.7 27 1946 Unknown [id number] 2.16.840.1.540757.3.579.2.7 27 1946 Unknown [id number] 2.16.840.1.292535.3.579.2.7 27 1946 Unknown [id number] 2.16.840.1.518740.3.579.2.7 27 1946 Unknown [id number] 2.16.840.1.655571.3.579.2.7 27 1946 Unknown [id number] 2.16.840.1.969679.3.579.2.7 27 1946 Unknown [id number] 2.16.840.1.769429.3.579.2.1 286 1946 Unknown [id number] 2.16.840.1.393208.3.579.2.1 286 1946 Unknown [id number] 2.16.840.1.236073.3.579.2.1 286 1946 Unknown [id number] 2.16.840.1.783496.3.579.2.1 1946 Unknown [id number] 2.16.840.1.154243.3.579.2.1 1946 Unknown [id number] 2.16.840.1.829114.3.579.2.1 286 1946 Unknown [id number] 2.16.840.1.003482.3.579.2.1 286 1946 Unknown [id number] 2.16.840.1.867811.3.579.2.1 286 1946 Unknown [id number] 2.16.840.1.702533.3.579.2.1 286 1946 Unknown [id number] 2.16.840.1.654921.3.579.2.1 286 1946 Unknown [id number] 2.16.840.1.395452.3.579.2.1 286 1946 Unknown [id number] 2.16.840.1.286678.3.579.2.1 286 1946 Unknown [id number] 2.16.840.1.477384.3.579.2.1 286 1946 Unknown [id number] 2.16.840.1.055836.3.579.2.1 286 Unknown [id number] Social History Date Type Detail Facility Start: 11-22-2022 End: 07-28-2023 Tobacco smoking status Ex-smoker (finding) [facility] Tobacco smoking status Never No[facility] Start: 11-20-2020 End: 10-12-2023 Sex Assigned At Male [facility] History of tobacco use Current smoker [facility] History of tobacco use Cigarette Smoker P [facility] Start: 07-28-2023 Tobacco use and exposure Smokeless tobacco non-user [facility] Start: 10-12-2023 Alcohol intake Ex-drinker (finding) [facility] Start: 11-20-2020 End: 10-12-2023 History of Social function [facility] Start: 1945 Sex Assigned At Not on file [facility] Start: 1945 Sex Assigned At Male Schuyler [facility] Functional Status Date Assessment Result Facility 05-09-2023 Functional Status No [facility] 04-08-2023 Functional Status No [facility] 02-23-2023 Functional Status N/A [facility] 02-23-2023 Functional Status [facility] 02-17-2023 Functional Status N/A [facility] 02-15-2023 Functional Status N/A [facility] 02-10-2023 Functional Status No [facility] 01-06-2023 Functional Status No [facility] 12-23-2022 Functional Status No [facility] 12-09-2022 Functional Status No [facility] 11-22-2022 Functional Status No [facility] Clinical Notes 01-29-2023 to 04-09-2024 Note Date & Type Note Facility 04-09-2024 Note [facility] 01-04-2024 Note [facility] 12-24-2023 Note [facility] 12-24-2023 Note [facility] 12-23-2023 Note [facility] 12-23-2023 Note [facility] 12-23-2023 Note [facility] 12-23-2023 Note [facility] No pre-cert is needed but awaiting medical readiness. Pt/family aware. AVS updated. UPDATE 3:20PM- Pt medically ready but SNF not able to accept until tomorrow. has been updated. 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 First available is 8:45pm. Let the facility and patient's know the discharge time. Sent the AVS to [facility]. [facility] 11-21-2023 Note [facility] 11-20-2023 Note hospitalist notified by nursing staff that patient spiked a temperature of 102 ???F during his posttransfusion vitals. Spoke with blood bank and they stated to order transfusion reaction protocol and they would contact nursing for further instructions. [facility] 11-20-2023 Note [facility] 11-20-2023 Note [facility] 11-20-2023 Note [facility] 11-20-2023 Note [facility] 11-20-2023 Note [facility] 11-19-2023 Note [facility] 11-19-2023 Note [facility] 11-18-2023 Note [facility] 11-18-2023 Note [facility] 11-18-2023 Note [facility] 11-18-2023 Note [facility] 11-08-2023 Note [facility] 11-08-2023 Note [facility] 11-08-2023 Note [facility] 11-08-2023 Note [facility] 11-08-2023 Note [facility] 11-07-2023 Note [facility] 11-07-2023 Note [facility] 11-07-2023 Note [facility] 11-07-2023 Note This report has been cancelled. [facility] 11-07-2023 Note [facility] 11-07-2023 Note Sent updates to 3 fo llowing SNF's but still needing OT/PT evals before they can accept. Requested orders be placed. UPDATE 2:20PM- Pt/'s 1st SNF choice [facility] stated they will be able to accept. Updated Ijeoma by phone and updated AVS. [facility] 11-06-2023 Note transit worker spoke with patient's Ijeoma. Ijeoma reports that SNF choices at 1.) [place], 2.) [place] [facility] and 3[facility]F referrals sent. OTM will continue to follow. [facility] 11-06-2023 Note [facility] 11-06-2023 Note [facility] 11-05-2023 Note [facility] 11-05-2023 Note [facility] 11-04-2023 Note [facility] 11-04-2023 Note [facility] 11-04-2023 Note [facility] 11-04-2023 Note [facility] 11-04-2023 Note [facility] 11-04-2023 Note [facility] 11-03-2023 Note Spiritual Care Note Patient name: Max Sanchez Age: 77 y.o. Room: [address] [place] [address] Patients was not present. Unable to complete Advance Directives documents. [facility] 11-03-2023 Note [facility] 11-03-2023 Note [facility] 11-02-2023 Note [facility] 11-02-2023 Note [facility] 11-02-2023 Note [facility] 10-26-2023 Note [facility] 10-17-2023 Note [facility] 10-17-2023 Note [facility] 10-05-2023 Note [facility] 09-26-2023 Note [facility] 09-25-2023 Note [facility] 09-25-2023 Note [facility] 09-25-2023 Note [facility] 09-25-2023 Note Awaiting IV antibiot ic approval and delivery. Sent updates to Yissel Faustin. AVS updated. OTM will continue to follow. [facility] 09-24-2023 Note [facility] 09-24-2023 Note [facility] 09-24-2023 Note [facility] 09-24-2023 Note [facility] 09-23-2023 Note [facility] 09-23-2023 Note [facility] 09-23-2023 Note [facility] 09-23-2023 Note [facility] 09-22-2023 Note [facility] 09-22-2023 Note [facility] 09-22-2023 Note [facility] 09-22-2023 Note [facility] 09-22-2023 Note [facility] 09-22-2023 Note [facility] 09-22-2023 Note This report has been cancelled. [facility] 09-21-2023 Note [facility] 09-21-2023 Note [facility] 09-20-2023 Note [facility] 09-20-2023 Note [facility] 09-20-2023 Note [facility] 09-20-2023 Note [facility] 09-19-2023 Note [facility] 09-19-2023 Note [facility] 09-18-2023 Note [facility] 08-31-2023 Note Continue IV antibiot ics and serial examination. [facility] 08-31-2023 Note [facility] 08-12-2023 Note Scheduled EGD/Cln/An emia/GI Bleed/EV 08/15/23 @1230, [facility], Dr. Velasquez [facility], #[id number]. Urgent referral from Dr. Horta scanned in Media 08/12/23. Patient holding blood thinner since 07/12/23. 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 Therapy with home health for prosthetic training when obtained-patie nt reports has this in place If tolerates temp prosthesis can f/u 3-6 months for final definitive prosthesis evaluation/pre scription. Monitor for skin breakdown. [employer] Other [id number] NoteAKA stump and physical therapy. Follow- up in a year.[facility]09[facility]11[facility] NoteContinue wound VAC and follow-up in a month. [facility]08-07-2023 [facility]-30-2023 [id number]:127[facility]06-01-2023 Evaluation + Plan noteExtracted from: Title:Discharge Note Author:PREETHI Alison RUTLEDGEe Date:03/10/23 Hemodynamically stable condi tion Discharge To, Anticipated II - [facility] Unit Discharged to - Home with family [...] Oral, Supper nystatin 100,000 units/mL Oral Susp, 6353685 unit(s)= 15 mL, Oral, QIDACHS oxymetazoline Nasal 0.05% [place], 2 spray(s), Nasal, BID, PRN senna 8.6 mg Tab, 17.2 mg= 2 tab(s), Oral, BID, PRN SEROquel 25 mg Tab, 25 mg= 1 tab(s), Oral, Bedtime sodium chloride nasal 0.65% spray, 2 spray(s), Nasal, q2hr, PRN Verquvo 10 mg oral tablet, 10 mg= 1 tab(s), Oral, Daily With When Contact Information GIAN HORTA In 3 days 02/28/2023 EDT [address] [facility] [place] [address] Business (1) Additional Instructions: The office is closed on Fridays. Please contact your PCP on Tuesday, February 28 for an appointment. Thank you! Chong Coe Within 7 to 10 days [address] [place] [address]- Business (1) Additional Instructions: Erwin Hurd Within 5 to 7 days [address] [place] [address]- Business (1) Additional Instructions: Dami WISE, TAL Guidry Within 2 to 4 weeks [address] [place] [address]- Additional Instructions: Diabetes Mellitus and Nutrition, Adult Diabetes Mellitus and Foot Care Wound Infection, [id number] Extracted from: Title:APSO Note Author:Megan DONIS Date:03/09/23 [...] of right lower extremity (I70.221: Atherosclerosis of quinault arteries of extremities with rest pain, right leg) - Atherosclerosis of quinault arteries of extremities with rest pain, right [...] ID. Dressing changes as per orders. Stump feeder catcher to right stump. -Severe malnutrition, dietitian consult [...] - afrin Orders: oxymetazoline nasal, 2 spray(s), [place], Nasal, TID for 72 hour(s), Stop date [...] of right lower extremity (I70.221: Atherosclerosis of quinault arteries of extremities with rest pain, right leg) - Atherosclerosis of quinault arteries of extremities with rest pain, right [...] of right lower extremity (I70.221: Atherosclerosis of quinault arteries of extremities with rest pain, right [...] of right lower extremity (I70.221: Atherosclerosis of quinault arteries of extremities with rest pain, right leg) - Atherosclerosis of quinault arteries of extremities with rest pain, right [...] of right lower extremity (I70.221: Atherosclerosis of quinault arteries of extremities with rest pain, right [...] procedure, unspecified, initial encounter) - Atherosclerosis of quinault arteries of extremities with rest pain, right leg - 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 Call out yesterday. - On ASA, plavix, pletal Ordered: [facility] Hospital Care/Day High 50 Minutes [id number] 2. Critical limb ischemia of right lower extremity (I70.221: Atherosclerosis of quinault arteries of extremities with rest pain, right leg) - left groin infection, Dr. Hurd recommended continue wound vac to be changed every 3 days with black foam, 125 mmHg - On invanz IV daily, follow-up ID of 3 weeks of antibiotics - picc line in place Ordered: [facility] Hospital Care/Day High 50 Minutes 66457 3. Peripheral vascular disease (I73.9: Peripheral vascular disease, unspecified) - As above Ordered: [facility] Hospital Care/Day High 50 Minutes 55259 4. Acute metabolic encephalopathy (G93.41: Metabolic encephalopathy) [...] process - Neurology consulted again today. Ordered: [facility] Hospital Care/Day High 50 Minutes 53896 5. Anemia of chronic disease (D63.8: Anemia in other chronic diseases classified elsewhere) - Transfused 2 unit prbc 3 days ago - Hemoglobin stable - On iron infusion Ordered: [facility] Hospital Care/Day High 50 Minutes 45607 6. Diabetes (E11.9: Type 2 diabetes mellitus without complications) - Metformin and SSI Ordered: [facility] Hospital Care/Day High 50 Minutes 80470 7. Chronic GERD (K21.9: Gastro-esophageal reflux disease without esophagitis) - Pepcid Ordered: [facility] Hospital Care/Day High 50 Minutes 83672 8. No contraindication to deep vein thrombosis (DVT) prophylaxis (Z78.9: Other specified health status) SCDs and Lovenox Ordered: [facility] Hospital Care/Day High 50 Minutes [id number] D/C tomorrow if cleared by neurology. Labs [...] of right lower extremity (I70.221: Atherosclerosis of quinault arteries of extremities with rest pain, right [...] procedure, unspecified, initial encounter) - Atherosclerosis of quinault arteries of extremities with rest pain, right leg - Status post right above-knee amputation 03/03 - Will call Vickey for further recommendations - On ASA, plavix, pletal 2. Critical limb ischemia of right lower extremity (I70.221: Atherosclerosis of quinault arteries of extremities with rest pain, right [...] of right lower extremity (I70.221: Atherosclerosis of quinault arteries of extremities with rest pain, right [...] of right lower extremity (I70.221: Atherosclerosis of quinault arteries of extremities with rest pain, right [...] to ensure accuracy , however, inadvertently computerized mail examiner mistakes may be present . Extracted from: Title:Progress Note * Author:Chong Coe M.D Date:03/04/23 Impression and Plan Diagnosis: Diagnosis: left groin wound fem pop infection partially treated already with 3 weeks of IV dapto/cefepime. . Orders Patient has been treated for a left groin wound postop vascular infection. Antibiotics were initially started after the infection was diagnosed at [facility]. Culture reportedly was negative per the . [...] of right lower extremity (I70.221: Atherosclerosis of quinault arteries of extremities with rest pain, right [...] of right lower extremity (I70.221: Atherosclerosis of quinault arteries of extremities with rest pain, right [...] to ensure accuracy , however, inadvertently computerized mail examiner mistakes may be present . Extracted from: Title:ANES Post-operative Note---General Author: MD Siri, Jose F Payan Date:03/03/23 Plan Transfer/Discharge: Transfer/Discharge Discharge when meets criteria ( To home ). Extracted from: Title:ANES Pre-anesthesia - Adult 19 Author:Marianne torres MD, Ahmad F Date:03/03/23 Plan [place] [employer] Anesthesiologists (ASA) physical status classification: [...] of right lower extremity (I70.221: Atherosclerosis of quinault arteries of extremities with rest pain, right [...] the as cultures apparently were done in [place]. Extracted from: Title:APSO Note Author:Shayy BALLESTEROS MD [...] 21 days, picc line in place Ordered: [facility] Hospital Care/Day High 50 Minutes [id number] 2. Critical limb ischemia of right lower extremity (I70.221: Atherosclerosis of quinault arteries of extremities with rest pain, right [...] of right lower extremity (I70.221: Atherosclerosis of quinault arteries of extremities with rest pain, right [...] of right lower extremity (I70.221: Atherosclerosis of quinault arteries of extremities with rest pain, right [...] health Discharged to - Home with family nursing home Discharge Diet(s): Calorie Controlled- 1800 Calorie Diet [...] Oral, Supper nystatin 100,000 units/mL Oral Susp, 2305952 unit(s)= 15 mL, Oral, QIDACHS Verquvo 10 mg oral tablet, 10 mg= 1 tab(s), Oral, Daily With When Contact Information GIAN HORTA In 3 days 02/28/2023 EDT [address] [facility] [place] [address] Business (1) Additional Instructions: The office is closed on Fridays. Please contact your PCP on Tuesday, February 28 for an appointment. Thank you! Diabetes Mellitus and Nutrition, Adult Diabetes Mellitus and Foot Care Wound Infection, Wwol-as-Ctbe Discharge time >30 min Extracted from: Title:Infection Admission H&P * Author:Chong Coe M.D Date:02/25/23 Impression and Plan Diagnosis left groin wound fem pop infection partially treated already with 3 weeks of IV dapto/cefepime . Orders Patient's initial debridement on his left groin wound was done at [facility]. These records are not available [...] Complete Bilat 04/08/23 * CV Cardiovascular 02/15/23 [facility]06-01-2023 NoteSt. [facility] God HospitalComment on above:Result Comment: Electronically Signed By: Serena FINNEGAN\.br\Date and Time Signed: 03/10/23 10:50 EDT\.br\Electronically Co-Signed By: West Shukla MD\.br\Date and Time Co-Signed: 03/10/23 11:19 EDT 02-25-2023 [facility]Result Comment: Electronically Signed By: Huong HERRING MD.fabio\Date and Time Signed: 02/25/23 11:[id number] Hospital Discharge instructions Patient Education 02/25/2023 11:06:33 [...] Carrots. Green beans. Tomatoes. Peppers. Onions. Cucumbers. [place] sprouts. Grains Whole grains, such as whole-wheat [...] meet with a certified diabetes care and educational advisor? Do I need to meet with a dietitian? What number can I call if I have questions? When are the best times to check my blood glucose? Where to find more information: [place] [employer] Association: diabetes.org Academy of Nutrition and Dietetics: eatright.org National [place] of Diabetes and Digestive and Kidney Diseases: [...] provider. Document Revised: 04/29/2021 Document Reviewed: 04/29/2021 [email or web address] Patient Education 2022 [facility]. 02/25/2023 11:06:31 Diabetes Mellitus and Foot Care Diabetes Mellitus and Foot Care Foot care is an important part of your health, especially when you have diabetes. Diabetes may cause you to have problems because of poor blood flow (circulation) to your feet and legs, which can cause your skin to: Become thinner and grain drier. Break more easily. Heal more slowly. Peel [...] provider immediately. Where to find more information [place] [employer] Association: www.diabetes.org Association of Diabetes Care [...] provider. Document Revised: 04/16/2021 Document Reviewed: 04/16/2021 [email or web address] Patient Education 2022 [facility]. 02/25/2023 11:06:09 Wound Infection, Diql-as-Iufx Wound Infection A wound infection happens when [...] instructions at home: Medicines Take or apply kxfz-rgr-hhxchko and prescription medicines only as told by [...] cannot use soap and water, use hand mainspring winder. ?Change your bandage as told by your [...] provider. Document Revised: 07/22/2022 Document Reviewed: 07/22/2022 [email or web address] Patient Education 2022 [facility]. Follow Up Care 02/23/2023 10:43:07 With:Chong Coe Address: [address] [place] [address]- Business (1) When:7 to 10 days With:Erwin Hurd Address: [address] [place] [address]- Business (1) When:5 to 7 days With:Andrea Lomax MD, NEU Address: [address] [place] [address]- When:2 to 4 weeks With:GIAN HORTA Address: [address] [place] [address] Business (1) When:02/28/2023 Comments:The office is closed on Fridays. Please contact your PCP on February 28 for an appointment. Thank you! [facility]05-09-2023 Evaluation + Plan noteExtracted from: Title:ED Note [...] 02/15/23 12:39:00 EDT phenylephrine nasal, 2 spray(s), [place], Nasal, Once, Stop date 02/15/23 12:42:00 EDT, [...] Complete Bilat 04/08/23 * CV Cardiovascular 02/15/23 [facility]05-09-2023 Evaluation + Plan note Future Scheduled Tests Radiology* CV Cardiovascular 02/15/23 [facility]05-09-2023 Hospital Discharge instructions Follow Up Care 02/15/2023 11:01:41 With:Vinita Delgadillo Address:Unknown When:02/18/2023 16:48:28 With:Erwin Hurd Address: [address] [place] [address]- Business (1) When:02/18/2023 16:48:12 With:GIAN HORTA Address: [address] [place] [address] Business (1) When:Within 3 Day(s) [facility]04-22-2023 NotePROCEDURE: XR HIP RT 2 3V W PELVIS COMPARISON: None. HISTORY: Pain in right hip joint FINDINGS: BONES:No acute fracture or dislocation. Moderate degenerative spondylosis of the spine. Moderate bilateral hip osteoarthropathy with joint space narrowing SOFT TISSUES:Negative. No visible soft tissue swelling. EFFUSION:None visible. OTHER: Vascular calcifications with vascular stents IMPRESSION: Moderate degenerative changes Electronically authenticated by: MARIO CULLEN Date: 2023-01-29 14:17[facility] Future Appointments Appointment Date:12/02/2022 08:45:00 AM Scheduled Provider:Brennon Alvarado MD Location:[facility] Appointment Type: New Patient 30 ([facility]) [facility] Future Appointments Appointment Date:12/23/2022 02:30:00 PM Scheduled Provider:Erwin Hurd MD Location:[facility] Appointment Type:Vascular Follow Up ([facility]) [facility] Future Scheduled Tests Radiology* US Aorta, IVC, Iliac Duplex 04/08/23 * US PVR Lower EXT Complete Bilat 04/08/23 [facility] note Future Appointments Appointment Date:02/17/2023 10:30:00 AM Scheduled Provider:Erwin Hurd MD Location:[facility] Appointment Type:Vascular Follow Up (FT) Future Scheduled Tests Radiology* US Aorta, IVC, Iliac Duplex 04/08/23 * US PVR Lower EXT Complete Bilat 04/08/23 * CV Cardiovascular 02/15/23 [facility] Future Appointments Appointment Date:03/17/2023 01:00:00 PM Scheduled Provider:Erwin Hurd MD Location:.V[facility] Clinic Appointment Type:Vascular Follow Up (FT) Future Scheduled Tests Radiology* US Aorta, IVC, Iliac Duplex 04/08/23 * US PVR Lower EXT Complete Bilat 04/08/23 * CV Cardiovascular 02/15/23 [facility] Future Appointments Appointment Date:04/13/2023 09:00:00 AM Scheduled Provider: Location:.[facility] Appointment Type:US Duplex Procedures (FT) Diagnostic Tests Pending * Path. Review 04/04/23 Future Scheduled Tests Radiology* US Aorta, IVC, Iliac Duplex 04/13/23 * US PVR Lower EXT Complete Bilat 04/13/23 * CV Cardiovascular 02/15/23 [facility] Future Appointments Appointment Date:04/11/2023 12:30:00 PM Scheduled Provider: Location:[facility] Appointment Type:Surgery FT Future Scheduled Tests Radiology* CV Cardiovascular 02/15/23 [facility] noteNo InformationNortWellSpan [facility] Other Evaluation note* Diagnosis Anemia, unspecified type- Primary documented in this encounter [facility] note[facility] assessment information available [facility] Work Phone: Hisyvro general Narrative - Reported* Type Description Date Medical History type II diabetes Medical History PAD Surgical History cholcystecomy Surgical History appendectomy Surgical History open heart surgery Surgical History femoral bypass Surgical History right leg amputation [facility] Other Hospital course Narrative No data available for this section [facility] No data available for this section [facility]InstructionsNot on filedocumented in this encounter [facility] note No data available for this section [facility] Summary Purpose Family History No Family History Records Found Relationship Condition Age at Onset Recorded Date/T norma brother Unknown Malignant neoplasm Unknown Advance Directives No Advanced Directives Records FoundNo [...] and content) DATE CREATED AUTHOR 04/29/2022 [facility] DATE CREATED AUTHOR AUTHOR'S ORGANIZ ATION [facility]/30/2023 [facility] DATE CREATED AUTHOR AUTHOR'S ORGANIZ ATION 02/10/2023 [facility] DATE CREATED AUTHOR AUTHOR'S ORGANIZ ATION 09/07/2023 [facility] DATE CREATED AUTHOR AUTHOR'S ORGANIZ ATION 02/06/2024 [facility] DATE CREATED AUTHOR AUTHOR'S ORGANIZ ATION 02/25/2024 [facility] DATE CREATED AUTHOR AUTHOR'S ORGANIZ ATION [facility]/20[facility] DATE CREATED AUTHOR AUTHOR'S ORGANIZ ATION 04/07/2024 [facility] DATE CREATED AUTHOR AUTHOR'S ORGANIZ ATION 04/10/2024 [facility] Patient Care team informatio n (unrecognized section and content) 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 [facility]. provides no warranty or guarantee of the accuracy or completeness of information in this document.
--- NOTE | 2024-04-13 08:35 | XR_ITS ---
The [address] [address] Patient Name: MAX SANCHEZ MRN: [id number] date: 1945 Sex: M Assigned Patient [email or web address] Current Patient Location: Accession/Order Number: [id number] Exam Date: 04/13/2024 08:40 Report Date: 04/14/2024 06:20 At the request of: TAIWO JOHNSON Procedure: XR chest 2V EXAMINATION: XR chest 2V HISTORY: Preop exam COMPARISON: XR chest 02/09/2023 FINDINGS: LUNGS: No significant pulmonary parenchymal abnormalities. VASCULATURE: No increased pulmonary vasculature. PLEURA: No pneumothorax, effusion, or pleural thickening. CARDIAC: No cardiomegaly or cardiac silhouette abnormality. MEDIASTINUM: Prior sternotomy. No visible mass or adenopathy. BONES: Old healed left rib fractures. Degenerative changes of the shoulder joints. OTHER: Negative. XR/XR chest 2V IMPRESSION: 1. No acute cardiopulmonary process. Stable chest. Electronically authenticated by: ANDREA ARTEAGA Date: 04/14/2024 06:20
[2024-04-13 08:49] LABS: Hemoglobin 10.4 g/dL (14.0-18.0); Mean Corpuscular HGB Conc 30.6 g/dL (29.9-35.2); Mean Corpuscular Hemoglobin 28.7 pg (25.9-34.0); Mean Corpuscular Volume 93.9 fL (80.0-94.0); Mean Platelet Volume 10.5 fL (9.5-13.5); Platelet Count 85 10^3/uL (150-450); Red Blood Count 3.62 10^6/uL (4.70-6.10); Red Cell Distribution Width 17.9 % (11.0-15.0); White Blood Count 3.4 10^3/uL (4.0-11.0)
[2024-04-13 09:01] LABS: INR 1.13; Partial Thromboplastin Time 30.5 sec (22.3-36.2); Prothrombin Time 11.8 sec (9.0-11.6)
[2024-04-13 09:12] LABS: Anion Gap 8.1; BUN Creatinine Ratio 23.4; Calcium 9.2 mg/dL (8.5-10.1); Carbon Dioxide 31.5 mmol/L (21.0-32.0); Chloride 103 mmol/L (98-107); Estimated GFR (African America >60 (>=60); Estimated GFR (Non-African Ame >60 (>=60); Glucose 175 mg/dL (74-106); Potassium 3.6 mmol/L (3.5-5.1); Sodium 139 mmol/L (136-145)
[2024-04-13 09:15] LABS: Eosinophils Absolute Manual 0.03 10^3/uL (0.00-0.70); Lymphocytes Absolute Manual 0.44 10^3/uL (1.20-3.80); Monocytes Absolute Manual 0.13 10^3/uL (0.30-0.80); Segmented Neut Absolute Manual 2.78 10^3/uL (1.4-6.5)
== END 2024-04-13 07:48 | disposition home or self-care (01) ==
LOC: PST 07:48
PROVIDERS: PCP Internal Medicine; Visit Provider Student in an Organized Health Care Education/Training Program
DX: Z01.810 Encounter for preprocedural cardiovascular examination (principal); Z01.812 Encounter for preprocedural laboratory examination; M86.651 Other chronic osteomyelitis, right thigh
CPT/HCPCS: 36415; 71046; 80048; 85007; 85027; 85610; 85730

== ENCOUNTER 2024-04-19 06:22 | Day surgery (SDC) | payer MEDICARE, SELFPAY ==
[2024-04-13 08:34] VITALS: BP 128/73; PULSE 86; TEMP 36.2; O2SAT 99; BMI 35.1
[2024-04-19 06:25] VITALS: BP 155/63; PULSE 75; TEMP 36.2; O2SAT 99; BMI 46.1
[2024-04-19] MEDS: LACTATED RINGER'S SOLUTION 1,000 ML 50 ML IV (07:09)
[2024-04-19 07:10] LABS: Glucometer 111 mg/dL (74-106)
--- NOTE | 2024-04-19 10:05 | PC.NURSE ---
04/19/[address] Shields in to see patient. Patient's platelets are low and the surgery is being cancelled for today and will be rescheduled.
== END 2024-04-19 11:00 | disposition home or self-care (01) ==
LOC: SURGOUT 06:23
PROVIDERS: PCP Internal Medicine; Visit Provider Student in an Organized Health Care Education/Training Program
DX: E11.69 Type 2 diabetes mellitus with other specified complication (principal); Z53.8 Procedure and treatment not carried out for other reasons; M86.651 Other chronic osteomyelitis, right thigh; I50.9 Heart failure, unspecified; D64.9 Anemia, unspecified; Z89.611 Acquired absence of right leg above knee; I25.10 Atherosclerotic heart disease of native coronary artery without angina pectoris
CPT/HCPCS: 11044; 36415; 82948; 85007; 85027

== ENCOUNTER 2024-04-19 14:47 | Outpatient (OUT) | payer MEDICARE, SELFPAY ==
[2024-04-19 15:11] LABS: Hematocrit 32.3 % (42.0-54.0); Hemoglobin 10.1 g/dL (14.0-18.0); Mean Corpuscular HGB Conc 31.3 g/dL (29.9-35.2); Mean Corpuscular Volume 92.8 fL (80.0-94.0); Mean Platelet Volume 11.3 fL (9.5-13.5); Platelet Count 87 10^3/uL (150-450); Red Blood Count 3.48 10^6/uL (4.70-6.10); Red Cell Distribution Width 17.6 % (11.0-15.0); White Blood Count 2.7 10^3/uL (4.0-11.0)
[2024-04-19 15:32] LABS: Lymphocytes Absolute Manual 0.56 10^3/uL (1.20-3.80); Monocytes Absolute Manual 0.27 10^3/uL (0.30-0.80); Segmented Neut Absolute Manual 1.86 10^3/uL (1.4-6.5)
[2024-04-19 15:33] LABS: Anisocytosis 1+
[2024-04-19 15:34] LABS: Ovalocytes 1+
== END 2024-04-19 14:48 | disposition home or self-care (01) ==
LOC: LAB 14:47
PROVIDERS: PCP Internal Medicine; Visit Provider Internal Medicine
DX: D69.6 Thrombocytopenia, unspecified (principal)
CPT/HCPCS: 36415; 85007; 85027

== ENCOUNTER 2024-04-25 07:19 | Outpatient (OUT) | payer MEDICARE, SELFPAY ==
--- OUTSIDE RECORDS SUMMARY | 2024-04-25 07:24 | XMS_ITS | CCD ---
Author Organization [facility] Care Team Providers Care Ditch Tender Name Role Phone GIAN HORTA Primary Care Unavailable GIAN HORTA Referring Unavailable JIMMY LYNN Admitting Unavailable JIMMY LYNN Attending Unavailable GIAN HORTA JR Primary Care Physician [phone] PROVIDER, UNKNOWN Admitting Unavailable PROVIDER, UNKNOWN Attending [...] Emma Panda Unavailable Unavailable Robert Gomez Unavailable Rula Freeman DO, Charles L Primary Care Provider MD Jacob Bernardo Attending Provider [phone] Jacob Bernardo Admitting Unavailable Jacob Bernardo Attending [...] Unavailable MD Erwin Hurd Attending Unavailable MD Erwni Hurd Admitting Unavailable MD Erwin Hurd Referring [...] Admitting Unavailable NAZZAL, MUNIER Attending Unavailable CRISTOPHER, YASIR Azar Referring Unavailable VICKEY, MOHAMED Admitting Unavailable VICKEY, MOHAMED Attending Unavailable TOFLINSKI, REBECCA Referring Unavailable GANGWANI, MONA MANE Referring Unavailab le ALEJANDRO, JUHI Referring Unavailable NUGENT, TANJA Referring Unavailable CLIFFEL, ELIANA Referring Unavailable ENIX, ANGELES Attending Unavailable Allergies Allergy Classification Reported Allergen(s) Allergy Type Date of Onset Reaction(s) Facility (7 sources) Codeine; Translations: [codeine] Drug Allergy 08-20-20 09 [facility] Repository (8 sources) Iodine; Translations: [iodine] Drug Allergy 08-20-20 09 Unknown [facility] Rep[facility] (3 sources) Levamisole; Translations: [Phenergan] Drug Allergy 04-03-20 21 [facility] Repository (4 sources) Shellfish; Translations: [shellfish] Drug allergy (disorder) 08-20-20 09 Vomiting (disorder) [facility] Repository (20 sources) Codeine; Translations: [codeine] Drug Allergy 10-07-20 22 Vomitus (substance), Vomiting [facility] (18 sources) Iodine; Translations: [iodine] Drug Allergy 09-30-20 22 Vomitus (substance), Vomiting [facility] (20 sources) Promethazine; Translations: [promethazine] Drug Allergy 10-07-20 22 Vomitus (substance), Vomiting [facility] (1 source) Iodine and Iodide Containing Products Drug allergy (disorder) [facility] Repository (6 sources) Shellfish; Translations: [shellfish] Drug allergy 10-07-20 Vomiting (disorder), Vomiting [facility] (6 sources) DAPTOmycin; Translations: [DAPTOMYCIN] Drug Allergy 07-19-20 [facility] [place] Other (3 sources) cefepime; Translations: [CEFEPIME] [facility] Iodinated Contrast Media; Translations: [IODINATED CONTRAST MEDIA] Propensity to adverse reactions to drug 04-07-20 [facility] (3 sources) Shellfish; Translations: [shellfish derived] Allergy to substance 10-07-20 [facility] (1 source) Codeine Drug Allergy 07-19-20 [facility] Repository (1 source) DAPTOmycin Drug Allergy 07-19-20 [facility] Repository (1 source) Iodine Drug Allergy 07-19-20 [facility] Repository (1 source) Promethazine Drug Allergy 07-19-20 [facility] Repository (2 sources) SHELLFISH CONTAINING PRODUCTS; Translations: [SHELLFISH CONTAINING PRODUCTS] Propensity to adverse reactions to food (disorder) 10-07-20 [facility] Medications Current Medications Medication Drug Class(es) [...] mouth in the evening. 0 Active Biotin 02043 MCG as directed Orally bid Active carvedilol [...] 11/26/22 Status: Ordered take 2 tablets by [facility] in the morning cholecalciferol, vitamin D3, 10 mcg (400 unit) capsule Take 2 tablets by mouth in the morning. 0 Active take 1 capsule by [facility] every twenty-four hours Vitamin D3 1000 UNIT [...] 2 cap(s), Refills(s) 0, [facility]: [facility] #[id number], 168, cm, 01/06/23 11:42:00 EDT, Height/Length Dosing, [...] daily Start Date: 11/26/22 Status: Ordered nystatin 673494 unt/ml oral suspension (2 sources) Polyene Antifungal [...] 3 tab(s), Refills(s) 0, [facility]: [facility] #[id number], 168, cm, 01/06/23 11:42:00 EDT, Height/Length Dos... [...] cholesterol Start Date: 04/08/23 Status: Ordered sennosides, fci 8.6 mg oral tablet (2 sources) Start: [...] day(s), # 180 tab(s), Refills(s) 3, [facility]acy: [facility] #[id number], 168, cm, 05/09/23 9:37:00 EDT, Height/Length Dosing, 51.5, kg, 04/08/23 8:25:00 EDT, Weight Dosing Start Date: 05/09/23 Stop Date: 05/03/24 Status: Ordered Start: 02-10-2023 End: 03-12-2023 take 1 tablet by mouth twice daily cilostazol 100 mg Tab 100 mg = 1 tab(s), Oral, BID, X 30 day(s), # 60 tab(s), Refills(s) 0, Pharmacy: [facility] #[id number], 168, cm, 01/06/23 11:42:00 EDT, Height/Length Dosing, [...] (2 sources) Start: 03-10-2023 oxymetazoline Nasal 0.05% [place] 2 spray(s), Nasal, BID Other (see comment), [...] disease (2 sources) Atherosclerotic heart disease of [place] coronary artery without angina pectoris; Translations: [Atherosclerotic heart disease of [place] coronary artery without angina pectoris] Onset: 4 [...] 3 Chronic Gangrene (2 sources) Atherosclerosis of [place] arteries of extremities with gangrene, left leg; Translations: [Atherosclerosis of [place] arteries of extremities with gangrene, left leg] [...] Onset: 3 Episodic Other aftercare (1 source) [facility]DC (current) use of aspirin; Translations: [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 ASSISTANT 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 OF ASPIRIN] Onset: 3 Episodic Other aftercare (1 source) 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/antipl atelets; Translations: [HALF-WAY ANTITHROMBOT/ANTIPLATL ETS] Onset: 3 Episodic Other aftercare (1 source) Other [facility]p (current) drug therapy; Translations: [OTH HALF-WAY CURRENT DRUG THERAPY] Onset: 3 Episodic Other aftercare (1 source) [facility]DC (current) use of oral hypoglycemic drugs; Translations: [UNDER WATER ASSISTANT USE ORAL HYPOGLYCEMIC DX] Onset: 3 Episodic [...] Peripheral vascular disease, unspecified; Translations: [Atherosclerosis of [place] arteries of extremities with rest pain, left [...] Onset: 3 Episodic Other aftercare (3 sources) [facility]DC (current) use of anticoagulants; Translations: [UNDER WATER ASSISTANT CURRNT USE ANTICOAGULANTS] Onset: 3 Episodic Other [...] ABSOLUTE BASOPHIL 0.0 X10E9/L Normal 0.0-0.2 [facility] Comment on above: Performed By: #### C BCA, 3094-0, POWER ELECTRONICS RESEARCH ENGINEER, 4092-3 #### [facility] ([id number]) [address] [place] [address], [place] [address] ABSOLUTE NEUTROPHIL 2.6 X10E9/L Normal 1.5-6.6 [facility] Comment on above: Performed By: #### Sammy RILEY, 309-0, POWER ELECTRONICS RESEARCH ENGINEER, 4091-12 #### [facility] ([id number]) [address] [place] [address] 63716 Basophils/100 WBC (Bld) 0.8 % Normal [facility] Comment on above: Performed By: #### Sammy RILEY, 309-0, POWER ELECTRONICS RESEARCH ENGINEER, 4091-12 #### [facility] ([id number]) [address] [place] [address] 35887 Eosinophils (Bld) [#/Vol] 0.1 10*3/uL Normal 0.0-0.4 [facility] Comment on above: Performed By: #### Sammy RILEY, 0, POWER ELECTRONICS RESEARCH ENGINEER, 4091-12 #### [facility] ([id number]) [address] [place] [address] 29940 Eosinophils/100 WBC (Bld) 2.2 % Normal [facility] Comment on above: Performed By: #### Sammy RILEY, 0, POWER ELECTRONICS RESEARCH ENGINEER, 4091-12 #### [facility] ([id number]) [address] [place] [address] 53159 Erythrocyte distribution width (RBC) [Ratio] 19.8 % High 11.5-15.0 [facility] Comment on above: Performed By: #### Sammy RILEY, 309-0, POWER ELECTRONICS RESEARCH ENGINEER, 4091-12 #### [facility] ([id number]) [address] [place] [address] 32404 Hematocrit (Bld) [Volume fraction] 27.9 % Low 39-49 [facility] Comment on above: Performed By: #### Sammy RILEY, 309-0, POWER ELECTRONICS RESEARCH ENGINEER, 4091-12 #### [facility] ([id number]) [address] [place] [address] 19357 Hemoglobin (Bld) [Mass/Vol] 9.0 g/dL Low 13.0-17.0 [facility] Comment on above: Performed By: #### Sammy RILEY, 3093-0, POWER ELECTRONICS RESEARCH ENGINEER, 4091-12 #### [facility] ([id number]) [address] [place] [address] 41758 Lymphocytes (Bld) [#/Vol] 0.5 10*3/uL Low 1.0-3.5 [facility] Comment on above: Performed By: #### Sammy RILEY, 3093-0, POWER ELECTRONICS RESEARCH ENGINEER, 4091-12 #### [facility] ([id number]) [address] [place] [address] 21852 Lymphocytes/100 WBC (Bld) 12.2 % Normal [facility] Comment on above: Performed By: #### Sammy RILEY, 0, POWER ELECTRONICS RESEARCH ENGINEER, 4091-12 #### [facility] ([id number]) [address] [place] [address] 31593 MCH (RBC) [Entitic mass] 27.1 pg Normal 27-34 [facility] Comment on above: Performed By: #### Sammy RILEY, 0, POWER ELECTRONICS RESEARCH ENGINEER, 4091-12 #### [facility] ([id number]) [address] [place] [address] 00247 MCHC (RBC) [Mass/Vol] 32.1 g/dL Normal 32-36 [facility] Comment on above: Performed By: #### Sammy RILEY, 3090, POWER ELECTRONICS RESEARCH ENGINEER, 4091-12 #### [facility] ([id number]) [address] [place] [address] 48701 MCV (RBC) [Entitic vol] 85 fL Normal 80-[address] [facility] Comment on above: Performed By: #### Sammy RILEY, 309-0, POWER ELECTRONICS RESEARCH ENGINEER, 4091-12 #### [facility] ([id number]) [address] [place] [address] 64823 Monocytes (Bld) [#/Vol] 0.7 10*3/uL Normal 0-0.9 [facility] Comment on above: Performed By: #### C ROSEMARY, 3094-0, POWER ELECTRONICS RESEARCH ENGINEER, 4091-12 #### [facility] ([id number]) [address] [place] [address] 39808 Monocytes/100 WBC (Bld) 18.0 % Normal [facility] Comment on above: Performed By: #### Sammy RILEY, 3094-0, POWER ELECTRONICS RESEARCH ENGINEER, 4091-12 #### [facility] ([id number]) [address] [place] [address] 74124 Neutrophils/100 WBC (Bld) 66.8 % Normal [facility] Comment on above: Performed By: #### Sammy RILEY, 309-0, POWER ELECTRONICS RESEARCH ENGINEER, 4091-12 #### [facility] ([id number]) [address] [place] [address] 71111 Platelet mean volume (Bld) [Entitic vol] 8.3 fL Normal 7-12 [facility] Comment on above: Performed By: #### Sammy RILEY, 3094-0, POWER ELECTRONICS RESEARCH ENGINEER, 4091-12 #### [facility] ([id number]) [address] [place] [address] 21443 Platelets (Bld) [#/Vol] 138 10*3/uL Low 150-450 [facility] Comment on above: Performed By: #### Sammy RILEY, 3094-0, POWER ELECTRONICS RESEARCH ENGINEER, 4091-12 #### [facility] ([id number]) [address] [place] [address] 07367 RBC COUNT 3.30 X10E12/L Low 4.10-5.70 [facility] Comment on above: Performed By: #### Sammy RILEY, 3094-0, POWER ELECTRONICS RESEARCH ENGINEER, 4091-12 #### [facility] ([id number]) [address] [place] [address] 90379 WBC (Bld) [#/Vol] 3.9 10*3/uL Low 4.0-11.0 [facility] Comment on above: Performed By: #### Sammy RILEY, 3094-0, POWER ELECTRONICS RESEARCH ENGINEER, 4091-12 #### [facility] ([id number]) [address] [place] [address] 14698 COMPLETE BLOOD COUNTon 03-06 Erythrocyte distribution width (RBC) [Ratio] 19.0 % High 11.5-15.0 [facility] Comment on above: Performed By: #### Sammy RILEY, 3094-0, POWER ELECTRONICS RESEARCH ENGINEER, 4091-12 #### [facility] ([id number]) [address] [place] [address] 10780 Hematocrit (Bld) [Volume fraction] 28.1 % Low 39-49 [facility] Comment on above: Performed By: #### Sammy RILEY, 3094-0, POWER ELECTRONICS RESEARCH ENGINEER, 4091-12 #### [facility] ([id number]) [address] [place] [address] 28429 Hemoglobin (Bld) [Mass/Vol] 9.1 g/dL Low 13.0-17.0 [facility] Comment on above: Performed By: #### Sammy RILEY, 3094-0, POWER ELECTRONICS RESEARCH ENGINEER, 4091-12 #### [facility] ([id number]) [address] [place] [address] 42208 MCH (RBC) [Entitic mass] 26.9 pg Low 27-34 [facility] Comment on above: Performed By: #### Sammy BCA, 3094-0, POWER ELECTRONICS RESEARCH ENGINEER, 4091-12 #### [facility] ([id number]) [address] [place] [address] 70545 MCHC (RBC) [Mass/Vol] 32.5 g/dL Normal 32-36 [facility] Comment on above: Performed By: #### Sammy RILEY, 3094-0, POWER ELECTRONICS RESEARCH ENGINEER, 4091-12 #### [facility] ([id number]) [address] [place] [address] 72781 MCV (RBC) [Entitic vol] 83 fL Normal 80-100 [facility] Comment on above: Performed By: #### Sammy RILEY, 3094-0, POWER ELECTRONICS RESEARCH ENGINEER, 4091-3 #### [facility] ([id number]) [address] [place] [address] 47457 Platelet mean volume (Bld) [Entitic vol] 8.8 fL Normal 7-12 [facility] Comment on above: Performed By: #### Sammy RILEY, 3094-0, POWER ELECTRONICS RESEARCH ENGINEER, 4091-12 #### [facility] ([id number]) [address] [place] [address] 34272 Platelets (Bld) [#/Vol] 190 10*3/uL Normal 150-450 [facility] Comment on above: Performed By: #### Sammy RILEY, 3094-0, POWER ELECTRONICS RESEARCH ENGINEER, 4091-12 #### [facility] ([id number]) [address] [place] [address] 45817 RBC COUNT 3.40 X10E12/L Low 4.10-5.70 [facility] Comment on above: Performed By: #### Sammy RILEY, 309-0, POWER ELECTRONICS RESEARCH ENGINEER, 4091-12 #### [facility] ([id number]) [address] [place] [address] 27002 WBC (Bld) [#/Vol] 5.3 10*3/uL Normal 4.0-11.0 [facility] Comment on above: Performed By: #### Sammy RILEY, 3094-0, POWER ELECTRONICS RESEARCH ENGINEER, 4091- #### [facility] ([id number]) [address] [place] [address] 70371 [employer] 02-23-2024 Forms [id number] [id number] F Normal [facility] Sridhar 01-19-2024 L Specimen: [id number] Received: 01/23/24 Status: RASHMI Req Num: [id number] Spec Type: Surgical Subm Dr: Jacob Bernardo MD Tissues: A Bone - Resection (LFT FEMUR BONE AND OLD INCIS) Procedures: HE/6, Gross/Micro L2, Decalcification Age/ Patient Sex Location Account Attending Physician Max Sanchez 78/M [facility] [id number] Jacob Bernardo MD SPEC NUM: [id number] RECD: 01/23/24 STATUS: RASHMI REQ NUM: [id number] HEMANT: 01/19/24- SUBM DR: Jacob Bernardo MD ENTERED: 01/23/[address] [facility] [address]: Gordo Gonzalez SPEC TYPE: Surgical [...] is serially sectioned revealing yellow-lui soft tissue. Grease Cup Filler sections are submitted as follows: A1-A3: The margins, following decal A4: Soft tissue adherent to bone A5?A6: Skin excision to include ulcer with underlying soft tissue Specimen: [id number] Received: 01/23/24 Status: RASHMI Vargas Num: [id number] Spec Type: Surgical Subm Dr: Jacob Bernardo MD Tissues: A Bone - Resection (LFT FEMUR BONE AND OLD INCIS) Procedures: , Gross/Micro L2, Decalcification Patient: Max Sanchez [id number] (Continued) Specimen: [id number] Received: 01/23/24 (Continued) Gross Description (Continued) Signed (signature on file) Rosaline Coffey MD 01/26/24 1624 Specimen: [id number] Received: 01/23/24 Status: RASHMI Vargas Num: [id number] Spec Type: Surgical Subm Dr: Jacob Bernardo MD Tissues: A Bone - Resection (LFT FEMUR BONE AND OLD INCIS) Procedures: HE/6, Gross/Micro L2, Decalcification Patient: SanchezMax [id number] (Continued) Specimen: [id number] Received: 01/23/24 (Continued) Gross Description (Continued) RG/CYC CPT Codes 25870 01387 bone and skin bone and skin Specimen: [id number] Received: 01/23/24 Status: RASHMI Vargas Num: [id number] Spec Type: Surgical Subm Dr: Jacob Bernardo MD Tissues: A Bone - Resection (LFT FEMUR BONE AND OLD INCIS) Procedures: HE/6, Gross/Micro L2, Decalcification Patient: Max Sanchez [id number] (Continued) Signed (signature on file) Rosaline Coffey MD 01/26/244 Normal [facility] Follow-Upon 01-04-2024 Follow-Up Normal [facility] Orders Onlyon 01-04-2024 Orders Only Normal [facility] BASIC METABOLIC PANELon 12-08 Anion gap [Moles/Vol] 13 mmol/L Normal 7-20 [facility] Comment on above: Performed By: #### L [id number] ####[facility] (BEAKER)[address] [place] [address] Calcium [Mass/Vol] 8.3 mg/dL Low 8.6-10.3 [facility] Comment on above: Performed By: #### L [id number] ####[facility] (BEAKER)[address] [place] [address] Chloride [Moles/Vol] 97 mmol/L Low 98-107 [facility] Comment on above: Performed By: #### L [id number] ####[facility] (BEAKER)[address] [place] [address] CO2 [Moles/Vol] 22 mmol/L Normal 21-31 [facility] Comment on above: Performed By: #### L [id number] ####[facility] ([facility])[address] [place] [address] Creatinine [Mass/Vol] 0.44 mg/dL Low 0.70-1.30 [facility] Comment on above: Performed By: #### L [id number] ####[facility] ([facility])[address] [place] [address] GLOMERULAR FILTRATION RATE ML/MIN/1.73 SQ M.PREDICTED 109.2 mL/min/1.73m*2 Normal >60.0 [facility] Comment on above: Result Comment: [facility]???s estimated glomerular filtration rate (eGFR) will [...] of individuals. Performed By: #### L [id number] ####[facility] (BEAKER)[address] [place] [address] Glucose [Mass/Vol] 112 mg/dL High 70-100 [facility] Comment on above: Performed By: #### L [id number] ####[facility] (BEAKER)[address] [place] [address] Potassium [Moles/Vol] 3.8 mmol/L Normal 3.5-5.1 [facility] Comment on above: Performed By: #### L [id number] ####[facility] (BEAKER)[address] [place] [address] Sodium [Moles/Vol] 128 mmol/L Low 136-145 [facility] Comment on above: Performed By: #### L [id number] ####[facility] [place] [address] Urea nitrogen [Mass/Vol] 16 mg/dL Normal 7-25 [facility] Comment on above: Performed By: #### L [id number] ####[facility] ([facility])[address] [place] [address] UREA NITROGEN/CREATININE (MASS RATIO) IN SER/PLAS 36.4 Normal [facility] Comment on above: Performed By: #### L [id number] ####[facility] [place] [address] CBCon 12-24-2023 Erythrocyte distribution width (RBC) [Ratio] 18.3 % High 11.5-15.0 [facility] Comment on above: Performed By: #### L [id number] ####[facility] ([facility] [place] [address] ERYTHROCYTE MEAN CORPUSCULAR HEMOGLOBIN CONCENTRATION (G/DL) BY AUTOMATED 30.9 g/dL Low 32.0-35.0 [facility] Comment on above: Performed By: #### L [id number] ####[facility] (BEAKER)[address] [place] [address] Hematocrit (Bld) [Volume fraction] 24.9 % Low 39.0-55.0 [facility] Comment on above: Performed By: #### L [id number] ####[facility] (BEAKER)[address] [place] [address] Hemoglobin (Bld) [Mass/Vol] 7.7 g/dL Low 13.0-17.0 [facility] Comment on above: Performed By: #### L [id number] ####[facility] ([facility])[address] [place] [address] MCH (RBC) [Entitic mass] 27.1 pg Normal 27.0-33.0 [facility] Comment on above: Performed By: #### L [id number] ####[facility] ([facility])[address] [place] [address] MCV (RBC) [Entitic vol] 87.7 fL Normal 82.0-98.0 [facility] Comment on above: Performed By: #### L [id number] ####[facility] ([facility])[address] [place] [address] PLATELETS (10*3/UL) IN BLOOD AUTOMATED COUNT 172 10*3/uL Normal 150-400 [facility] Comment on above: Performed By: #### L [id number] ####[facility] ([facility])[address] [place] [address] RBC (Bld) [#/Vol] 2.84 10*6/uL Low 4.20-5.70 [facility] Comment on above: Performed By: #### L [id number] ####[facility] ([facility])[address] [place] [address] WBC (Bld) [#/Vol] 9.38 10*3/uL Normal 4.00-10.60 [facility] Comment on above: Performed By: #### L [id number] ####[facility] ([facility])[address] [place] [address] MAGNESIUMon 12-24-2023 Magnesium [Mass/Vol] 1.8 mg/dL Low 1.9-2.7 [facility] Comment on above: Performed By: #### L [id number] ####[facility] ([facility])[address] [place] [address] NURSNOTEon 12-24-2023 NURSNOTE Called [facility] at [place]. Left phone number with person who answered. Said nurse would call me back. Normal [facility] PHOSPHORUSon 12-24-2023 Magnesium [Mass/Vol] 2.8 mg/dL Normal 2.5-5.0 [facility] Comment on above: Performed By: #### L [id number] ####[facility] (BEAKER)[address] [place] [address] POCT GLUCOSE METER UNSOLICIT ED RESULTSon 12-24-2023 Glucose [Mass/Vol] 192 mg/dL High 70-105 [facility] Comment on above: Order Comment: Waive d Testing in the ED is performed under the ED CLIA certificate #[id number]. Result Comment: epoo le6 Performed By: #### L [id number] ####[facility] ([facility])[address] [place] [address] Glucose [Mass/Vol] 135 mg/dL High 70-105 [facility] Comment on above: Order Comment: Waive d Testing in the ED is performed under the ED CLIA certificate #[id number]. Result Comment: epoo le6 Performed By: #### L [id number] ####[facility] ([facility])[address] [place] [address] 30on 12-23-2023 30 Normal [facility] 30 Normal [facility] 30 Normal [facility] BASIC METABOLIC PANELon 12-08 Anion gap [Moles/Vol] 14 mmol/L Normal 7-20 [facility] Comment on above: Performed By: #### L [id number] ####[facility] (BEAKER)[address] [place] [address] Calcium [Mass/Vol] 8.3 mg/dL Low 8.6-10.3 [facility] Comment on above: Performed By: #### L AB15 ####[facility] (BEAKER)[address] [place] [address] Chloride [Moles/Vol] 95 mmol/L Low 98-107 [facility] Comment on above: Performed By: #### L [id number] ####[facility] (BEAKER)[address] [place] [address] CO2 [Moles/Vol] 23 mmol/L Normal 21-31 [facility] Comment on above: Performed By: #### L AB15 ####[facility] ([facility])[address] [place] [address] Creatinine [Mass/Vol] 0.45 mg/dL Low 0.70-1.30 [facility] Comment on above: Performed By: #### L AB15 ####[facility] ([facility])[address] [place] [address] GLOMERULAR FILTRATION RATE ML/MIN/1.73 SQ M.PREDICTED 108.4 mL/min/1.73m*2 Normal >60.0 [facility] Comment on above: Result Comment: [facility]???s estimated glomerular filtration rate (eGFR) will [...] of individuals. Performed By: #### L [id number] ####[facility] ([facility])[address] [place] [address] Glucose [Mass/Vol] 104 mg/dL High 70-100 [facility] Comment on above: Performed By: #### L [id number] ####[facility] ([facility])[address] [place] [address] Potassium [Moles/Vol] 3.7 mmol/L Normal 3.5-5.1 [facility] Comment on above: Performed By: #### L [id number] ####[facility] ([facility])[address] [place] [address] Sodium [Moles/Vol] 128 mmol/L Low 136-145 [facility] Comment on above: Performed By: #### L [id number] ####[facility] ([facility])[address] [place] [address] Urea nitrogen [Mass/Vol] 11 mg/dL Normal 7-25 [facility] Comment on above: Performed By: #### L [id number] ####[facility] ([facility])[address] [place] [address] UREA NITROGEN/CREATININE (MASS RATIO) IN SER/PLAS 24.4 Normal [facility] Comment on above: Performed By: #### L [id number] ####[facility] ([facility])[address] [place] [address] CBCon 12-23-2023 Erythrocyte distribution width (RBC) [Ratio] 18.4 % High 11.5-15.0 [facility] Comment on above: Performed By: #### L [id number] ####[facility] [place] [address] ERYTHROCYTE MEAN CORPUSCULAR HEMOGLOBIN CONCENTRATION (G/DL) BY AUTOMATED 30.1 g/dL Low 32.0-35.0 [facility] Comment on above: Performed By: #### L [id number] ####[facility] [place] [address] Hematocrit (Bld) [Volume fraction] 26.6 % Low 39.0-55.0 [facility] Comment on above: Performed By: #### L [id number] ####[facility] [place] [address] Hemoglobin (Bld) [Mass/Vol] 8.0 g/dL Low 13.0-17.0 [facility] Comment on above: Performed By: #### L [id number] ####[facility] ([facility])[address] [place] [address] MCH (RBC) [Entitic mass] 26.8 pg Low 27.0-33.0 [facility] Comment on above: Performed By: #### L [id number] ####[facility] [place] [address] MCV (RBC) [Entitic vol] 89.0 fL Normal 82.0-98.0 [facility] Comment on above: Performed By: #### L [id number] ####[facility] ([facility])[address] [address] PLATELETS (10*3/UL) IN BLOOD AUTOMATED COUNT 196 10*3/uL Normal 150-400 [facility] Comment on above: Performed By: #### L [id number] ####[facility] ([facility])[address] [place] [address] RBC (Bld) [#/Vol] 2.99 10*6/uL Low 4.20-5.70 [facility] Comment on above: Performed By: #### L [id number] ####[facility] ([facility])[address] [place] [address] WBC (Bld) [#/Vol] 13.04 10*3/uL High 4.00-10.60 [facility] Comment on above: Performed By: #### L [id number] ####[facility] ([facility])[address] [address] DSon 12-23-2023 DS Normal [facility] MAGNESIUMon 12-23-2023 Magnesium [Mass/Vol] 1.9 mg/dL Normal 1.9-2.7 [facility] Comment on above: Performed By: #### L [id number] ####[facility] ([facility])[address] [place] [address] PHOSPHORUSon 12-23-2023 Magnesium [Mass/Vol] 3.0 mg/dL Normal 2.5-5.0 [facility] Comment on above: Performed By: #### L [id number] ####[facility] ([facility])[address] [place] [address] POCT GLUCOSE METER UNSOLICIT ED RESULTSon 12-23-2023 Glucose [Mass/Vol] 156 mg/dL High 70-105 [facility] Comment on above: Order Comment: Waive d Testing in the ED is performed under the ED CLIA certificate #[id number]. Result Comment: [email or web address] Performed By: #### L [id number] ####[facility] ([facility] [facility])[address] [place] [address] Glucose [Mass/Vol] 99 mg/dL Normal 70-105 [facility] Comment on above: Order Comment: Waive d Testing in the ED is performed under the ED CLIA certificate #[id number]. Result Comment: [email or web address] Performed By: #### L [id number] ####[facility] ([employer])[address] [place] [address] Glucose [Mass/Vol] 137 mg/dL High 70-105 [facility] Comment on above: Order Comment: Waive d Testing in the ED is performed under the ED CLIA certificate #[id number]. Result Comment: [email or web address] Performed By: #### L [id number] ####[facility] ([facility])[address] [place] [address] Glucose [Mass/Vol] 145 mg/dL High 70-105 [facility] Comment on above: Order Comment: Waive d Testing in the ED is performed under the ED CLIA certificate #[id number]. Result Comment: [email or web address] Performed By: #### L [id number] ####[facility] ([employer])[address] [place] [address] 30on 12-22-2023 30 Normal [facility] BASIC METABOLIC PANELon 12-08 Anion gap [Moles/Vol] 7 mmol/L Normal 7-20 [facility] Comment on above: Performed By: #### L [id number] ####[facility] ([employer])[address] [place] [address] Calcium [Mass/Vol] 8.4 mg/dL Low 8.6-10.3 [facility] Comment on above: Performed By: #### L [id number] ####[facility] [place] [address] Chloride [Moles/Vol] 102 mmol/L Normal 98-107 [facility] Comment on above: Performed By: #### L [id number] ####[facility] ([facility])[address] [place] [address] CO2 [Moles/Vol] 27 mmol/L Normal 21-31 [facility] Comment on above: Performed By: #### L [id number] ####[facility] ([facility])[address] [place] [address] Creatinine [Mass/Vol] 0.39 mg/dL Low 0.70-1.30 [facility] Comment on above: Performed By: #### L [id number] ####[facility] ([facility])[address] [place] [address] GLOMERULAR FILTRATION RATE ML/MIN/1.73 SQ M.PREDICTED 113.2 mL/min/1.73m*2 Normal >60.0 [facility] Comment on above: Result Comment: [facility]???s estimated glomerular filtration rate (eGFR) will [...] of individuals. Performed By: #### L [id number] ####[facility] ([facility])[address] [place] [address] Glucose [Mass/Vol] 121 mg/dL High 70-100 [facility] Comment on above: Performed By: #### L [id number] ####[facility] ([facility])[address] [place] [address] Potassium [Moles/Vol] 4.0 mmol/L Normal 3.5-5.1 [facility] Comment on above: Performed By: #### L [id number] ####[facility] ([facility])[address] [place] [address] Sodium [Moles/Vol] 132 mmol/L Low 136-145 [facility] Comment on above: Performed By: #### L [id number] ####[facility] ([facility])[address] [place] [address] Urea nitrogen [Mass/Vol] 11 mg/dL Normal 7-25 [facility] Comment on above: Performed By: #### L [id number] ####[facility] ([facility])[address] [place] [address] UREA NITROGEN/CREATININE (MASS RATIO) IN SER/PLAS 28.2 Normal [facility] Comment on above: Performed By: #### L [id number] ####[facility] ([facility])[address] [place] [address] CBCon 12-22-2023 Erythrocyte distribution width (RBC) [Ratio] 18.4 % High 11.5-15.0 [facility] Comment on above: Performed By: #### L [id number] ####[facility] ([facility])[address] [place] [address] ERYTHROCYTE MEAN CORPUSCULAR HEMOGLOBIN CONCENTRATION (G/DL) BY AUTOMATED 31.0 g/dL Low 32.0-35.0 [facility] Comment on above: Performed By: #### L [id number] ####[facility] ([facility])[address] [place] [address] Hematocrit (Bld) [Volume fraction] 24.2 % Low 39.0-55.0 [facility] Comment on above: Performed By: #### L [id number] ####[facility] ([facility])[address] [place] [address] Hemoglobin (Bld) [Mass/Vol] 7.5 g/dL Low 13.0-17.0 [facility] Comment on above: Performed By: #### L [id number] ####[facility] ([facility])[address] [place] [address] MCH (RBC) [Entitic mass] 27.6 pg Normal 27.0-33.0 [facility] Comment on above: Performed By: #### L [id number] ####[facility] ([facility])[address] [address] MCV (RBC) [Entitic vol] 89.0 fL Normal 82.0-98.0 [facility] Comment on above: Performed By: #### L [id number] ####[facility] ([facility])[address] [place] [address] PLATELETS (10*3/UL) IN BLOOD AUTOMATED COUNT 154 10*3/uL Normal 150-400 [facility] Comment on above: Performed By: #### L [id number] ####[facility] ([facility])[address] [place] [address] RBC (Bld) [#/Vol] 2.72 10*6/uL Low 4.20-5.70 [facility] Comment on above: Performed By: #### L [id number] ####[facility] ([facility])[address] [place] [address] WBC (Bld) [#/Vol] 7.36 10*3/uL Normal 4.00-10.60 [facility] Comment on above: Performed By: #### L [id number] ####[facility] ([facility])[address] [place] [address] CONSULTon 12-22-2023 CONSULT Normal [facility] HEMOGLOBIN A1Con 12-22-2023 Glucose [Mass/Vol] 105 mg/dL Normal [facility] Comment on above: Performed By: #### L [id number] ####[facility] ([facility])[address] [place] [address] HbA1c (Bld) [Mass fraction] 5.3 % Normal 4.0-6.0 [facility] Comment on above: Performed By: #### L [id number] ####[facility] ([facility])[address] [place] [address] LACTIC ACID WITH 4 HOUR REFL EXon 12-22-2023 LACTATE (MMOL/L) IN SER/PLAS 0.8 mmol/L Normal 0.5-2.2 [facility] Comment on above: Performed By: #### L [id number] ####[facility] ([facility])[address] [place] [address] MAGNESIUMon 12-22-2023 Magnesium [Mass/Vol] 1.7 mg/dL Low 1.9-2.7 [facility] Comment on above: Performed By: #### L [id number] ####[facility] ([facility])[address] [place] [address] PHOSPHORUSon 12-22-2023 Magnesium [Mass/Vol] 3.7 mg/dL Normal 2.5-5.0 [facility] Comment on above: Performed By: #### L [id number] ####[facility] ([facility])[address] [place] [address] POCT GLUCOSE METER UNSOLICIT ED RESULTSon 12-22-2023 Glucose [Mass/Vol] 121 mg/dL High 70-105 [facility] Comment on above: Order Comment: Waive d Testing in the ED is performed under the ED CLIA certificate #[id number]. Result Comment: [email or web address] Performed By: #### L [id number] ####[facility] ([facility])[address] [place] [address] Glucose [Mass/Vol] 170 mg/dL High 70-105 [facility] Comment on above: Order Comment: Waive d Testing in the ED is performed under the ED CLIA certificate #[id number]. Result Comment: [email or web address] Performed By: #### L [id number] ####[facility] ([facility])[address] [place] [address] Glucose [Mass/Vol] 163 mg/dL High 70-105 [facility] Comment on above: Order Comment: Waive d Testing in the ED is performed under the ED CLIA certificate #[id number]. Result Comment: [email or web address] Performed By: #### L [id number] ####[facility] [place] [address] Glucose [Mass/Vol] 136 mg/dL High 70-105 [facility] Comment on above: Order Comment: Waive d Testing in the ED is performed under the ED CLIA certificate #[id number]. Result Comment: [email or web address] Performed By: #### L [id number] ####[facility] ([facility])[address] [place] [address] ANESon 12-21-2023 ANES Normal [facility] ACTIVATED PARTIAL THROMBOPLASTIN TIME IN PPP BY COAGULATION ASSAY 37.6 Seconds High 25.0-35.0 [facility] Comment on above: Result Comment: Clin ical significance of the APTT is questionable in the presence of heparin. Performed By: #### L [id number] ####[facility] ([facility])[address] [place] [address] BASIC METABOLIC PANELon - Anion gap [Moles/Vol] 6 mmol/L Low 7-20 [facility] Comment on above: Performed By: #### L [id number] ####[facility] ([facility])[address] [place] [address] Calcium [Mass/Vol] 8.1 mg/dL Low 8.6-10.3 [facility] Comment on above: Performed By: #### L [id number] ####[facility] [place] [address] Chloride [Moles/Vol] 102 mmol/L Normal 98-107 [facility] Comment on above: Performed By: #### L [id number] ####[facility] ([facility] [place] [address] CO2 [Moles/Vol] 30 mmol/L Normal 21-31 [facility] Comment on above: Performed By: #### L [id number] ####[facility] ([facility])[address] [place] [address] Creatinine [Mass/Vol] 0.40 mg/dL Low 0.70-1.30 [facility] Comment on above: Performed By: #### L [id number] ####[facility] ([facility])[address] [place] [address] GLOMERULAR FILTRATION RATE ML/MIN/1.73 SQ M.PREDICTED 112.4 mL/min/1.73m*2 Normal >60.0 [facility] Comment on above: Result Comment: [facility]???s estimated glomerular filtration rate (eGFR) will [...] of individuals. Performed By: #### L [id number] ####[facility] ([facility])[address] [place] [address] Glucose [Mass/Vol] 187 mg/dL High 70-100 [facility] Comment on above: Performed By: #### L [id number] ####[facility] ([facility])[address] [place] [address] Potassium [Moles/Vol] 3.9 mmol/L Normal 3.5-5.1 [facility] Comment on above: Performed By: #### L [id number] ####[facility] ([facility])[address] [place] [address] Sodium [Moles/Vol] 134 mmol/L Low 136-145 [facility] Comment on above: Performed By: #### L [id number] ####[facility] ([facility])[address] [place] [address] Urea nitrogen [Mass/Vol] 11 mg/dL Normal 7-25 [facility] Comment on above: Performed By: #### L [id number] ####[facility] ([facility])[address] [place] [address] UREA NITROGEN/CREATININE (MASS RATIO) IN SER/PLAS 27.5 Normal [facility] Comment on above: Performed By: #### L [id number] ####[facility] ([facility])[address] [place] [address] CBCon 12-21-2023 Erythrocyte distribution width (RBC) [Ratio] 18.2 % High 11.5-15.0 [facility] Comment on above: Performed By: #### L [id number] ####[facility] ([facility])[address] [place] [address] ERYTHROCYTE MEAN CORPUSCULAR HEMOGLOBIN CONCENTRATION (G/DL) BY AUTOMATED 30.2 g/dL Low 32.0-35.0 [facility] Comment on above: Performed By: #### L [id number] ####[facility] ([facility])[address] [place] [address] Hematocrit (Bld) [Volume fraction] 29.1 % Low 39.0-55.0 [facility] Comment on above: Performed By: #### L [id number] ####[facility] [place] [address] Hemoglobin (Bld) [Mass/Vol] 8.8 g/dL Low 13.0-17.0 [facility] Comment on above: Performed By: #### L [id number] ####[facility] [place] [address] MCH (RBC) [Entitic mass] 27.2 pg Normal 27.0-33.0 [facility] Comment on above: Performed By: #### L [id number] ####[facility] [place] [address] MCV (RBC) [Entitic vol] 90.1 fL Normal 82.0-98.0 [facility] Comment on above: Performed By: #### L [id number] ####[facility] ([facility])[address] [place] [address] PLATELETS (10*3/UL) IN BLOOD AUTOMATED COUNT 188 10*3/uL Normal 150-400 [facility] Comment on above: Performed By: #### L [id number] ####[facility] ([facility])[address] [place] [address] RBC (Bld) [#/Vol] 3.23 10*6/uL Low 4.20-5.70 [facility] Comment on above: Performed By: #### L [id number] ####[facility] ([facility])[address] [place] [address] WBC (Bld) [#/Vol] 6.24 10*3/uL Normal 4.00-10.60 [facility] Comment on above: Performed By: #### L [id number] ####[facility] ([facility])[address] [place] [address] HISTOLOGY - TISSUE EXAMon LAB AP CASE REPORT Normal [facility] Comment on above: Order Comment: Pre-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]Encounter for pre-operative examination [Z01.818] Result Comment: Surg ical Pathology Case: [id number] Provider: Anjelica Zapata MD Collected: 12/21/2023 1640Ordering Location: [facility] Main Operating Room Received: 12/22/2023 1002Pathologist: MONICA Marreropecimen: Leg, LEFT KNEE/LEG Performed By: #### L [id number] ####[facility] [place] [address] LAB AP CLINICAL INFORMATION Normal [facility] Comment on above: Order Comment: Pre-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 Leg. Normal [facility] Comment on above: Order Comment: [...] site. At least six additional crusted, eroded green-marroquni to red-brown foci are noted extending proximally, [...] decalcification7 Posterior tibial artery, after decalcificationRegan Martin' Art Museum Aide Performed By: #### L [id number] ####[facility] ([facility])[address] [facility] [place] [address] LAB AP MICROSCOPIC DESCRIPTION Microscopic examination performed. 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 L eft knee and leg, amputation revision:- Gangrenous necrosis of skin and soft tissue.- Calcific atherosclerosis of major vessels.- No evidence of acute osteomyelitis.- Viable soft tissue and bone resection margins. Performed By: #### L [id number] ####[facility] ([facility])[address] [place] [address] HPon 12-21-2023 HP Normal [facility] Labon 12-21-2023 Lab Normal [facility] MRSA/MSSA DNA NASALon 2023 MRSA DNA Negative Normal Negative [facility] Comment on above: Order Comment: Testi [...] preclude nasal colonization. Performed By: #### L [id number] ####[facility] [facility] [place] [address] MSSA DNA Negative Normal Negative [facility] Comment on above: Order Comment: Testi [...] preclude nasal colonization. Performed By: #### L [id number] ####[facility] ([facility])[address] [facility] [place] [address] NURSNOTEon 12-21-2023 NURSNOTE Patient arrived [facility] with No complaints. Call light in reach. Dinner ordered. Normal [facility] OPNOTEon 12-21-2023 OPNOTE Normal [facility] POCT GLUCOSE METER UNSOLICIT ED RESULTSon 12-21-2023 Glucose [Mass/Vol] 99 mg/dL Normal 70-105 [facility] Comment on above: Order Comment: Waive d Testing in the ED is performed under the ED CLIA certificate #[id number]. Result Comment: [email or web address] Performed By: #### L [id number] ####[facility] ([facility])[address] [place] [address] Glucose [Mass/Vol] 99 mg/dL Normal 70-105 [facility] Comment on above: Order Comment: Waive d Testing in the ED is performed under the ED CLIA certificate #[id number]. Result Comment: [email or web address] Performed By: #### L [id number] ####[facility] ([facility])[address] [place] [address] Glucose [Mass/Vol] 164 mg/dL High 70-105 [facility] Comment on above: Order Comment: Waive d Testing in the ED is performed under the ED CLIA certificate #[id number]. Result Comment: acle ment Performed By: #### L [id number] ####[facility] ([facility]AKER)[address] [place] [address] PROTIME-INRon 12-21-2023 INR IN PPP BY COAGULATION ASSAY 1.20 High 0.90-1.10 [facility] Comment on above: Result Comment: [facility] P RECOMMENDED INR FOR WARFARIN THERAPY CONDITION INRPROPHYLAXIS OF VENOUS THROMBOSIS 2-3(HIGH-RISK SURGERY)TREATMENT OF VENOUS THROMBOSIS 2-3TREATMENT OF PULMONARY EMBOLISM 2-3PREVENTION OF SYSTEMIC EMBOLISM: 2-3 ACUTE MYOCARDIAL INFARCTION TISSUE HEART VALVES VALVULAR HEART DISEASE ATRIAL FIBRILLATION RECURRENT SYSTEMIC EMBOLISMMECHANICAL HEART VALVE 2.5-3.5 FROM: ORAL ANTICOAGULANTS. MECHANISM OF ACTION, CLINICAL EFFECTIVENESS, AND OPTIMAL THERAPEUTIC RANGE. CHEST 1995;108:231S-246S. Performed By: #### L [id number] ####[facility] (BEAK[facility])[address] [place] [address] PROTHROMBIN TIME (PT) IN PPP BY COAGULATION ASSAY 15.2 Seconds High 12.3-14.8 [facility] Comment on above: Performed By: #### L [id number] ####[facility] ([facility])[address] [place] [address] TYPE AND SCREENon 12-21-2023 AB SCREEN Negative Normal [facility] Comment on above: Performed By: #### L [id number] ####[facility], ABO group Nom (Bld) O Normal [facility] Comment on above: Performed By: #### L [id number] ####[facility] B[facility]OD BANK, RH TYPE IN BLOOD Positive Normal [facility] [place] Comment on above: Performed By: #### L [id number] ####[facility] B[facility]OD [facility], Orders Onlyon 12-19-2023 Orders Only [facility] Prep for Procedureon 024 Prep for Procedure Normal [facility] Follow-Upon 12-16-2023 Follow-Up [facility] 36on 12-07-2023 36 Critical lab - Hgb - 6.8, Hematocrit - 22.8. ZOEY Mendes notified and contacted patient. [facility] Documentationon 12-07-2023 Documentation [facility] Orders Onlyon 12-07-2023 Orders Only [facility] Orders Onlyon 12-05-2023 Orders Only [facility] Telemedicineon 12-01-2023 Telemedicine [facility] Follow-Upon 11-30-2023 Follow-Up [facility] 36on 11-28-2023 36 Confirmed appointmen t change with spouse. She voiced understanding. [facility] 36 Patient is currently scheduled in person on 12/01/23. Please respond. [facility] 36on 11-24-2023 36 Patient is currently at [facility] in [facility]. Dr. Gian Horta is following the patient in Rehab. Patients Ijeoma is requesting a virtual appointment due to patient recovery post leg amputation. Please Advise. [facility] Telephoneon 11-24-2023 Telephone [facility] BASIC METABOLIC PANELon 11-10 Anion gap [Moles/Vol] 12 mmol/L Normal 7-20 [facility] Comment on above: Performed By: #### L [id number] ####[facility] (BEAKER)[address] [place] [address] Calcium [Mass/Vol] 7.7 mg/dL Low 8.6-10.3 [facility] Comment on above: Performed By: #### L [id number] ####[facility] (BEAKER)[address] [place] [address] Chloride [Moles/Vol] 98 mmol/L Normal 98-107 [facility] Comment on above: Performed By: #### L [id number] ####[facility] ([facility])[address] [place] [address] CO2 [Moles/Vol] 26 mmol/L Normal 21-31 [facility] Comment on above: Performed By: #### L [id number] ####[facility] ([facility])[address] [place] [address] Creatinine [Mass/Vol] 0.37 mg/dL Low 0.70-1.30 [facility] Comment on above: Performed By: #### L [id number] ####[facility] ([facility])[address] [place] [address] GLOMERULAR FILTRATION RATE ML/MIN/1.73 SQ M.PREDICTED 115.8 mL/min/1.73m*2 Normal >60.0 [facility] Comment on above: Result Comment: [facility]???s estimated glomerular filtration rate (eGFR) will [...] of individuals. Performed By: #### L [id number] ####[facility] ([facility])[address] [place] [address] Glucose [Mass/Vol] 103 mg/dL High 70-100 [facility] Comment on above: Performed By: #### L [id number] ####[facility] ([facility])[address] [place] [address] Potassium [Moles/Vol] 3.9 mmol/L Normal 3.5-5.1 [facility] Comment on above: Performed By: #### L [id number] ####[facility] (BEAKER)[address] [place] [address] Sodium [Moles/Vol] 132 mmol/L Low 136-145 [facility] Comment on above: Performed By: #### L [id number] ####[facility] [place] [address] Urea nitrogen [Mass/Vol] 6 mg/dL Low 7-25 [facility] Comment on above: Performed By: #### L [id number] ####[facility] [place] [address] UREA NITROGEN/CREATININE (MASS RATIO) IN SER/PLAS 16.2 Normal [facility] Comment on above: Performed By: #### L [id number] ####[facility] ([facility])[address] [place] [address] CBC WITH AUTO DIFFERENTIALon 11-21-2023 Basophils (Bld) [#/Vol] 0.01 10*3/uL Normal 0.00-0.20 [facility] Comment on above: Performed By: #### L [id number] ####[facility] [place] [address] Basophils/100 WBC (Bld) 0.2 % Normal 0.0-1.0 [facility] Comment on above: Performed By: #### L [id number] ####[facility] [place] [address] Eosinophils (Bld) [#/Vol] 0.01 10*3/uL Normal 0.00-0.50 [facility] Comment on above: Performed By: #### L [id number] ####[facility] (BEAKER)[address] [place] [address] Eosinophils/100 WBC (Bld) 0.2 % Normal 0.0-6.0 [facility] Comment on above: Performed By: #### L [id number] ####[facility] (BEAKER)[address] [place] [address] Erythrocyte distribution width (RBC) [Ratio] 17.0 % High 11.5-15.0 [facility] Comment on above: Performed By: #### L [id number] ####[facility] (BEAKER)[address] [place] [address] ERYTHROCYTE MEAN CORPUSCULAR HEMOGLOBIN CONCENTRATION (G/DL) BY AUTOMATED 31.6 g/dL Low 32.0-35.0 [facility] Comment on above: Performed By: #### L [id number] ####[facility] (BEAKER)[address] [place] [address] Hematocrit (Bld) [Volume fraction] 25.6 % Low 39.0-55.0 [facility] Comment on above: Performed By: #### L [id number] ####[facility] (BEAKER)[address] [place] [address] Hemoglobin (Bld) [Mass/Vol] 8.1 g/dL Low 13.0-17.0 [facility] Comment on above: Performed By: #### L [id number] ####[facility] (BEAKER)[address] [place] [address] Immature granulocytes (Bld) [#/Vol] 0.03 10*3/uL Normal 0.00-0.20 [facility] Comment on above: Performed By: #### L [id number] ####[facility] (BEAKER)[address] [place] [address] Immature granulocytes/100 WBC (Bld) 0.5 % Normal 0.0-1.0 [facility] Comment on above: Performed By: #### L [id number] ####[facility] (BEAKER)[address] [place] [address] Lymphocytes (Bld) [#/Vol] 0.34 10*3/uL Low 1.20-4.00 [facility] Comment on above: Performed By: #### L [id number] ####[facility] (BEAKER)[address] [place] [address] Lymphocytes/100 WBC (Bld) 5.9 % Low 20.0-45.0 [facility] Comment on above: Performed By: #### L [id number] ####[facility] ([facility])[address] [place] [address] MCH (RBC) [Entitic mass] 26.7 pg Low 27.0-33.0 [facility] Comment on above: Performed By: #### L [id number] ####[facility] ([facility])[address] [place] [address] MCV (RBC) [Entitic vol] 84.5 fL Normal 82.0-98.0 [facility] Comment on above: Performed By: #### L [id number] ####[facility] ([facility])[address] [place] [address] Monocytes (Bld) [#/Vol] 0.74 10*3/uL Normal 0.10-1.00 [facility] Comment on above: Performed By: #### L [id number] ####[facility] ([facility])[address] [place] [address] Monocytes/100 WBC (Bld) 12.8 % High 5.0-12.0 [facility] Comment on above: Performed By: #### L [id number] ####[facility] ([facility])[address] [place] [address] Neutrophils (Bld) [#/Vol] 4.66 10*3/uL Normal 1.60-7.60 [facility] Comment on above: Performed By: #### L [id number] ####[facility] ([facility])[address] [place] [address] Neutrophils/100 WBC (Bld) 80.4 % High 40.0-72.0 [facility] Comment on above: Performed By: #### L [id number] ####[facility] [place] [address] NRBC (PER 100 WBCS) BY AUTOMATED COUNT 0.0 % Normal 0 [facility] Comment on above: Performed By: #### L [id number] ####[facility] [place] [address] PLATELETS (10*3/UL) IN BLOOD AUTOMATED COUNT 172 10*3/uL Normal 150-400 [facility] Comment on above: Performed By: #### L [id number] ####[facility] ([facility])[address] [place] [address] RBC (Bld) [#/Vol] 3.03 10*6/uL Low 4.20-5.70 [facility] Comment on above: Performed By: #### L [id number] ####[facility] ([facility])[address] [place] [address] WBC (Bld) [#/Vol] 5.79 10*3/uL Normal 4.00-10.60 [facility] Comment on above: Performed By: #### L [id number] ####[facility] ([facility])[address] [place] [address] CONSULTon 11-21-2023 CONSULT Normal [facility] DSon 11-21-2023 DS Normal [facility] HEPATIC FUNCTION PANELon Albumin [Mass/Vol] 2.4 g/dL Low 3.5-5.7 [facility] Comment on above: Performed By: #### L [id number] ####[facility] ([facility])[address] [place] [address] ALP [Catalytic activity/Vol] 215 U/L High 34-104 [facility] Comment on above: Performed By: #### L [id number] ####[facility] [place] [address] ALT [Catalytic activity/Vol] 147 U/L High 7-52 [facility] Comment on above: Performed By: #### L [id number] ####[facility] [place] [address] AST [Catalytic activity/Vol] 110 U/L High 13-39 [facility] Comment on above: Performed By: #### L [id number] ####[facility] ([facility])[address] [place] [address] Bilirubin [Mass/Vol] 0.8 mg/dL Normal 0.3-1.0 [facility] Comment on above: Performed By: #### L [id number] ####[facility] ([facility])[address] [place] [address] Magnesium [Mass/Vol] 0.6 mg/dL High 0-0.2 [facility] Comment on above: Performed By: #### L [id number] ####[facility] ([facility])[address] [place] [address] Protein [Mass/Vol] 6.3 g/dL Normal 6.0-8.3 [facility] Comment on above: Performed By: #### L [id number] ####[facility] ([facility])[address] [place] [address] POCT GLUCOSE METER UNSOLICIT ED RESULTSon 11-21-2023 Glucose [Mass/Vol] 192 mg/dL High 70-105 [facility] Comment on above: Order Comment: Waive d Testing in the ED is performed under the ED CLIA certificate #[id number]. Result Comment: [email or web address] Performed By: #### L [id number] ####[facility] ([facility])[address] [place] [address] Glucose [Mass/Vol] 155 mg/dL High 70-105 [facility] Comment on above: Order Comment: Waive d Testing in the ED is performed under the ED CLIA certificate #[id number]. Result Comment: [email or web address] Performed By: #### L [id number] ####[facility] ([facility])[address] [place] [address] Glucose [Mass/Vol] 108 mg/dL High 70-105 [facility] Comment on above: Order Comment: Waive d Testing in the ED is performed under the ED CLIA certificate #[id number]. Result Comment: [email or web address] Performed By: #### L [id number] ####[facility] ([employer])[address] [place] [address] Glucose [Mass/Vol] 115 mg/dL High 70-105 [facility] Comment on above: Order Comment: Waive d Testing in the ED is performed under the ED CLIA certificate #[id number]. Result Comment: [email or web address] Performed By: #### L [id number] ####[facility] ([employer])[address] [place] [address] PROTIME-INRon 11-21-2023 INR IN PPP BY COAGULATION ASSAY 1.40 High 0.90-1.10 [facility] Comment on above: Result Comment: ACCC [...] CHEST 1995;[id number]. Performed By: #### L [id number] ####[facility] ([employer])[address] [place] [address] PROTHROMBIN TIME (PT) IN PPP BY COAGULATION ASSAY 17.2 Seconds High 12.3-14.8 [facility] Comment on above: Performed By: #### L [id number] ####[facility] ([employer])[address] [place] [address] BASIC METABOLIC PANELon 02- Anion gap [Moles/Vol] 11 mmol/L Normal 7-20 [facility] Comment on above: Performed By: #### L [id number] ####[facility] (BEAKER)[address] [place] [address] Calcium [Mass/Vol] 7.8 mg/dL Low 8.6-10.3 [facility] Comment on above: Performed By: #### L [id number] ####[facility] [place] [address] Chloride [Moles/Vol] 101 mmol/L Normal 98-107 [facility] Comment on above: Performed By: #### L [id number] ####[facility] ([facility] [place] [address] CO2 [Moles/Vol] 24 mmol/L Normal 21-31 [facility] Comment on above: Performed By: #### L [id number] ####[facility] [place] [address] Creatinine [Mass/Vol] 0.43 mg/dL Low 0.70-1.30 [facility] Comment on above: Performed By: #### L [id number] ####[facility] ([facility])[address] [place] [address] GLOMERULAR FILTRATION RATE ML/MIN/1.73 SQ M.PREDICTED 110.6 mL/min/1.73m*2 Normal >60.0 [facility] Comment on above: Result Comment: [facility]???s estimated glomerular filtration rate (eGFR) will [...] of individuals. Performed By: #### L [id number] ####[facility] ([facility])[address] [place] [address] Glucose [Mass/Vol] 104 mg/dL High 70-100 [facility] Comment on above: Performed By: #### L [id number] ####[facility] ([facility])[address] [place] [address] Potassium [Moles/Vol] 3.7 mmol/L Normal 3.5-5.1 [facility] Comment on above: Performed By: #### L [id number] ####[facility] ([facility])[address] [place] [address] Sodium [Moles/Vol] 132 mmol/L Low 136-145 [facility] Comment on above: Performed By: #### L [id number] ####[facility] ([facility])[address] [place] [address] Urea nitrogen [Mass/Vol] 9 mg/dL Normal 7-25 [facility] Comment on above: Performed By: #### L [id number] ####[facility] ([facility])[address] [place] [address] UREA NITROGEN/CREATININE (MASS RATIO) IN SER/PLAS 20.9 Normal [facility] Comment on above: Performed By: #### L [id number] ####[facility] ([facility])[address] [place] [address] CBC WITH AUTO DIFFERENTIALon 11-20-2023 Basophils (Bld) [#/Vol] 0.02 10*3/uL Normal 0.00-0.20 [facility] Comment on above: Performed By: #### L [id number] ####[facility] ([facility])[address] [place] [address] Basophils/100 WBC (Bld) 0.5 % Normal 0.0-1.0 [facility] Comment on above: Performed By: #### L [id number] ####[facility] [place] [address] Eosinophils (Bld) [#/Vol] 0.02 10*3/uL Normal 0.00-0.50 [facility] Comment on above: Performed By: #### L [id number] ####[facility] (BEAKER)[address] [place] [address] Eosinophils/100 WBC (Bld) 0.5 % Normal 0.0-6.0 [facility] Comment on above: Performed By: #### L [id number] ####[facility] (BEAKER)[address] [place] [address] Erythrocyte distribution width (RBC) [Ratio] 17.1 % High 11.5-15.0 [facility] Comment on above: Performed By: #### L [id number] ####[facility] (BEAKER)[address] [place] [address] ERYTHROCYTE MEAN CORPUSCULAR HEMOGLOBIN CONCENTRATION (G/DL) BY AUTOMATED 31.6 g/dL Low 32.0-35.0 [facility] Comment on above: Performed By: #### L [id number] ####[facility] (BEAKER)[address] [place] [address] Hematocrit (Bld) [Volume fraction] 22.8 % Low 39.0-55.0 [facility] Comment on above: Performed By: #### L [id number] ####[facility] (BEAKER)[address] [place] [address] Hemoglobin (Bld) [Mass/Vol] 7.2 g/dL Low 13.0-17.0 [facility] Comment on above: Performed By: #### L [id number] ####[facility] ([facility]ER)[address] [place] [address] Immature granulocytes (Bld) [#/Vol] 0.05 10*3/uL Normal 0.00-0.20 [facility] Comment on above: Performed By: #### L [id number] ####[facility] (BEAKER)[address] [place] [address] Immature granulocytes/100 WBC (Bld) 1.2 % High 0.0-1.0 [facility] Comment on above: Performed By: #### L [id number] ####[facility] [place] [address] Lymphocytes (Bld) [#/Vol] 0.32 10*3/uL Low 1.20-4.00 [facility] Comment on above: Performed By: #### L [id number] ####[facility] ([facility])[address] [place] [address] Lymphocytes/100 WBC (Bld) 7.4 % Low 20.0-45.0 [facility] Comment on above: Performed By: #### L [id number] ####[facility] ([facility])[address] [place] [address] MCH (RBC) [Entitic mass] 26.6 pg Low 27.0-33.0 [facility] Comment on above: Performed By: #### L [id number] ####[facility] ([facility])[address] [place] [address] MCV (RBC) [Entitic vol] 84.1 fL Normal 82.0-98.0 [facility] Comment on above: Performed By: #### L [id number] ####[facility] ([facility])[address] [place] [address] Monocytes (Bld) [#/Vol] 0.39 10*3/uL Normal 0.10-1.00 [facility] Comment on above: Performed By: #### L [id number] ####[facility] ([facility])[address] [place] [address] Monocytes/100 WBC (Bld) 9.1 % Normal 5.0-12.0 [facility] Comment on above: Performed By: #### L [id number] ####[facility] (BEAKER)[address] [place] [address] Neutrophils (Bld) [#/Vol] 3.50 10*3/uL Normal 1.60-7.60 [facility] Comment on above: Performed By: #### L [id number] ####[facility] ([facility])[address] [place] [address] Neutrophils/100 WBC (Bld) 81.3 % High 40.0-72.0 [facility] Comment on above: Performed By: #### L [id number] ####[facility] ([facility])[address] [place] [address] NRBC (PER 100 WBCS) BY AUTOMATED COUNT 0.0 % Normal 0 [facility] Comment on above: Performed By: #### L [id number] ####[facility] ([facility])[address] [place] [address] PLATELETS (10*3/UL) IN BLOOD AUTOMATED COUNT 168 10*3/uL Normal 150-400 [facility] Comment on above: Performed By: #### L [id number] ####[facility] ([facility])[address] [place] [address] RBC (Bld) [#/Vol] 2.71 10*6/uL Low 4.20-5.70 [facility] Comment on above: Performed By: #### L [id number] ####[facility] ([facility])[address] [address] WBC (Bld) [#/Vol] 4.30 10*3/uL Normal 4.00-10.60 [facility] Comment on above: Performed By: #### L [id number] ####[facility] ([facility])[address] [place] [address] HEPATIC FUNCTION PANELon Albumin [Mass/Vol] 2.4 g/dL Low 3.5-5.7 [facility] Comment on above: Performed By: #### L [id number] ####[facility] [place] [address] ALP [Catalytic activity/Vol] 201 U/L High 34-104 [facility] Comment on above: Performed By: #### L [id number] ####[facility] ([facility]AKER)[address] [place] [address] ALT [Catalytic activity/Vol] 160 U/L High 7-52 [facility] Comment on above: Performed By: #### L [id number] ####[facility] [place] [address] AST [Catalytic activity/Vol] 107 U/L High 13-39 [facility] Comment on above: Performed By: #### L [id number] ####[facility] ([facility])[address] [place] [address] Bilirubin [Mass/Vol] 0.5 mg/dL Normal 0.3-1.0 [facility] Comment on above: Performed By: #### L [id number] ####[facility] ([facility])[address] [place] [address] Magnesium [Mass/Vol] 0.3 mg/dL High 0-0.2 [facility] Comment on above: Performed By: #### L [id number] ####[facility] ([facility])[address] [place] [address] Protein [Mass/Vol] 6.1 g/dL Normal 6.0-8.3 [facility] Comment on above: Performed By: #### L [id number] ####[facility] ([facility])[address] [place] [address] POCT GLUCOSE METER UNSOLICIT ED RESULTSon 11-20-2023 Glucose [Mass/Vol] 96 mg/dL Normal 70-105 [facility] Comment on above: Order Comment: Waive d Testing in the ED is performed under the ED CLIA certificate #[id number]. Result Comment: [email or web address] Performed By: #### L [id number] ####[facility] ([facility])[address] [place] [address] Glucose [Mass/Vol] 124 mg/dL High 70-105 [facility] Comment on above: Order Comment: Waive d Testing in the ED is performed under the ED CLIA certificate #[id number]. Result Comment: [email or web address] Performed By: #### L [id number] ####[facility] ([facility])[address] [place] [address] TRANSFUSION REACTION EVALUAT IONon 11-20-2023 ABO GROUP (TYPE) IN BLOOD O [facility] Comment on above: Order Comment: Obtai n one Redtop and one Lavender Top. Send with Blood Bag and Infusion set to Blood Bank Performed By: #### L [id number] ####[facility], ANTI C3 LD Negative [facility] Comment on above: Order Comment: Obtai n one Red[place] and one Lavender Top. Send with Blood Bag and Infusion set to Blood Bank Performed By: #### L [id number] ####[facility], ANTI IGG LD Negative [facility] Comment on above: Order Comment: Obtai n one Redtop and one Lavender Top. Send with Blood Bag and Infusion set to Blood Bank Performed By: #### L [id number] ####[facility], RH TYPE IN BLOOD Positive [facility] Comment on above: Order Comment: Obtai n one Redtop and one Lavender Top. Send with Blood Bag and Infusion set to Blood Bank Performed By: #### L [id number] ####[facility], TRANSFUSION REACTION EVALUATION FEBRILE Normal [facility] Comment on above: Order Comment: Obtai n one Redtop and one Lavender Top. Send with Blood Bag and Infusion set to Blood Bank Performed By: #### L [id number] ####[facility], 30on 11-19-2023 30 Normal [facility] BASIC METABOLIC PANELon 11-10 Anion gap [Moles/Vol] 10 mmol/L Normal 7-20 [facility] Comment on above: Performed By: #### L [id number] ####[facility] ([facility])[address] [place] [address] Calcium [Mass/Vol] 7.8 mg/dL Low 8.6-10.3 [facility] Comment on above: Performed By: #### L [id number] ####[facility] [place] [address] Chloride [Moles/Vol] 100 mmol/L Normal 98-107 [facility] Comment on above: Performed By: #### L [id number] ####[facility] ([facility] [place] [address] CO2 [Moles/Vol] 25 mmol/L Normal 21-31 [facility] Comment on above: Performed By: #### L [id number] ####[facility] ([facility])[address] [place] [address] Creatinine [Mass/Vol] 0.36 mg/dL Low 0.70-1.30 [facility] Comment on above: Performed By: #### L [id number] ####[facility] ([facility])[address] [place] [address] GLOMERULAR FILTRATION RATE ML/MIN/1.73 SQ M.PREDICTED 116.7 mL/min/1.73m*2 Normal >60.0 [facility] Comment on above: Result Comment: [facility]???s estimated glomerular filtration rate (eGFR) will [...] of individuals. Performed By: #### L [id number] ####[facility] [place] [address] Glucose [Mass/Vol] 104 mg/dL High 70-100 [facility] Comment on above: Performed By: #### L [id number] ####[facility] [place] [address] Potassium [Moles/Vol] 3.7 mmol/L Normal 3.5-5.1 [facility] Comment on above: Performed By: #### L [id number] ####[facility] ([facility])[address] [place] [address] Sodium [Moles/Vol] 131 mmol/L Low 136-145 [facility] Comment on above: Performed By: #### L [id number] ####[facility] ([facility])[address] [place] [address] Urea nitrogen [Mass/Vol] 8 mg/dL Normal 7-25 [facility] Comment on above: Performed By: #### L [id number] ####[facility] ([facility])[address] [place] [address] UREA NITROGEN/CREATININE (MASS RATIO) IN SER/PLAS 22.2 Normal [facility] Comment on above: Performed By: #### L [id number] ####[facility] ([facility])[address] [place] [address] CBC WITH AUTO DIFFERENTIALon 11-19-2023 Basophils (Bld) [#/Vol] 0.03 10*3/uL Normal 0.00-0.20 [facility] Comment on above: Performed By: #### L [id number] ####[facility] [place] [address] Basophils/100 WBC (Bld) 0.6 % Normal 0.0-1.0 [facility] Comment on above: Performed By: #### L [id number] ####[facility] [place] [address] Eosinophils (Bld) [#/Vol] 0.01 10*3/uL Normal 0.00-0.50 [facility] Comment on above: Performed By: #### L [id number] ####[facility] [place] [address] Eosinophils/100 WBC (Bld) 0.2 % Normal 0.0-6.0 [facility] Comment on above: Performed By: #### L [id number] ####[facility] ([facility])[address] [place] [address] Erythrocyte distribution width (RBC) [Ratio] 16.9 % High 11.5-15.0 [facility] Comment on above: Performed By: #### L [id number] ####[facility] ([facility])[address] [place] [address] ERYTHROCYTE MEAN CORPUSCULAR HEMOGLOBIN CONCENTRATION (G/DL) BY AUTOMATED 31.6 g/dL Low 32.0-35.0 [facility] Comment on above: Performed By: #### L [id number] ####[facility] ([facility])[address] [place] [address] Hematocrit (Bld) [Volume fraction] 25.6 % Low 39.0-55.0 [facility] Comment on above: Performed By: #### L [id number] ####[facility] ([facility])[address] [place] [address] Hemoglobin (Bld) [Mass/Vol] 8.1 g/dL Low 13.0-17.0 [facility] Comment on above: Performed By: #### L [id number] ####[facility] ([facility])[address] [place] [address] Immature granulocytes (Bld) [#/Vol] 0.04 10*3/uL Normal 0.00-0.20 [facility] Comment on above: Performed By: #### L [id number] ####[facility] [place] [address] Immature granulocytes/100 WBC (Bld) 0.8 % Normal 0.0-1.0 [facility] Comment on above: Performed By: #### L [id number] ####[facility] [place] [address] Lymphocytes (Bld) [#/Vol] 0.37 10*3/uL Low 1.20-4.00 [facility] Comment on above: Performed By: #### L [id number] ####[facility] ([facility])[address] [place] [address] Lymphocytes/100 WBC (Bld) 7.2 % Low 20.0-45.0 [facility] Comment on above: Performed By: #### L [id number] ####[facility] ([facility])[address] [place] [address] MCH (RBC) [Entitic mass] 26.1 pg Low 27.0-33.0 [facility] Comment on above: Performed By: #### L [id number] ####[facility] (BE[facility]ER)[address] [place] [address] MCV (RBC) [Entitic vol] 82.6 fL Normal 82.0-98.0 [facility] Comment on above: Performed By: #### L [id number] ####[facility] ([facility])[address] [place] [address] Monocytes (Bld) [#/Vol] 0.54 10*3/uL Normal 0.10-1.00 [facility] Comment on above: Performed By: #### L [id number] ####[facility] ([facility])[address] [place] [address] Monocytes/100 WBC (Bld) 10.5 % Normal 5.0-12.0 [facility] Comment on above: Performed By: #### L [id number] ####[facility] (BE[facility]ER)[address] [place] [address] Neutrophils (Bld) [#/Vol] 4.13 10*3/uL Normal 1.60-7.60 [facility] Comment on above: Performed By: #### L [id number] ####[facility] (BE[facility]ER)[address] [place] [address] Neutrophils/100 WBC (Bld) 80.7 % High 40.0-72.0 [facility] Comment on above: Performed By: #### L [id number] ####[facility] ([facility])[address] [place] [address] NRBC (PER 100 WBCS) BY AUTOMATED COUNT 0.0 % Normal 0 [facility] Comment on above: Performed By: #### L [id number] ####[facility] ([facility])[address] [place] [address] PLATELETS (10*3/UL) IN BLOOD AUTOMATED COUNT 205 10*3/uL Normal 150-400 [facility] Comment on above: Performed By: #### L [id number] ####[facility] ([facility])[address] [place] [address] RBC (Bld) [#/Vol] 3.10 10*6/uL Low 4.20-5.70 [facility] Comment on above: Performed By: #### L [id number] ####[facility] ([facility])[address] [place] [address] WBC (Bld) [#/Vol] 5.12 10*3/uL Normal 4.00-10.60 [facility] Comment on above: Performed By: #### L [id number] ####[facility] ([facility])[address] [place] [address] NURSNOTEon 11-19-2023 NURSNOTE Normal [facility] POCT GLUCOSE METER UNSOLICIT ED RESULTSon 11-19-2023 Glucose [Mass/Vol] 105 mg/dL Normal 70-105 [facility] Comment on above: Order Comment: Waive d Testing in the ED is performed under the ED CLIA certificate #[id number]. Result Comment: mcas tor Performed By: #### L [id number] ####[facility] ([facility])[address] [place] [address] Glucose [Mass/Vol] 157 mg/dL High 70-105 [facility] Comment on above: Order Comment: Waive d Testing in the ED is performed under the ED CLIA certificate #[id number]. Result Comment: [email or web address] Performed By: #### L [id number] ####[facility] (BEAKER)[address] [facility] [place] [address] Glucose [Mass/Vol] 127 mg/dL High 70-105 [facility] Comment on above: Order Comment: Waive d Testing in the ED is performed under the ED CLIA certificate #[id number]. Result Comment: [email or web address] Performed By: #### L [id number] ####[facility] (BEAKER)[address] [facility] [place] [address] Glucose [Mass/Vol] 112 mg/dL High 70-105 [facility] Comment on above: Order Comment: Waive d Testing in the ED is performed under the ED CLIA certificate #[id number]. Result Comment: [email or web address] [id number] Value Noted Performed By: #### L [id number] ####[facility] (BEAKER)[address] [facility] [place] [address] [id number] 11-18-2023 [id number] Normal [facility] 30on 11-18-2023 30 Normal [facility] AFP TUMOR MARKERon 4 ALPHA FETOPROTEIN TUMOR MARKER 2 ng/mL Normal 0-9 [facility] Comment on above: Result Comment: INTE [...] gender-specific referenceintervals for this test in the [employer] [facility] Test Directory([employer]).Performed By: [employer] [place] [id number] Director: Dashawn Dumont MD, PhDCLIA Number: [id number] Performed By: #### L [id number] ####[facility] ([facility])[address] [place] [address] [id number] 2023 ALPHA-1 ANTITRYPSIN 333 mg/dL High 90-200 [facility] Comment on above: Result Comment: To c onvert to umol/L, multiply mg/dL by 0.185Performed By: [employer] [place] [id number] Director: Dashawn Dumont MD, PhDCLIA Number: [id number] Performed By: #### L [id number] ####[facility] ([facility])[address] [place] [address] ANAon 11-18-2023 ALLYSSA TITER <1:40 Normal <=1:40 [facility] Comment on above: Result Comment: Test performed using STAR IFA ALLYSSA Hep-2 Test, a pre-standardized assay designed for the qualitative and semi-quantitative detection of antinuclear antibodies. Performed By: #### L [id number] ####[facility] (BEAKER)[address] [place] [address] ANESon 11-18-2023 ANE Normal [facility] ANES Normal [facility] ANTI-SMOOTH MUSCLE ANTIBODY TITERon 11-18-2023 SMOOTH MUSCLE AB, IGG TITER 1:80 High <1:20 [facility] Comment on above: Result Comment: INTE RPRETIVE INFORMATION: Smooth Muscle Ab, IgG Titer Less than 1:20 ........ Negative - No antibody detected. 1:20 - 1:80 .......... Weak Positive - Suggest repeat in two to three weeks with fresh specimen. 1:160 or greater ...... Positive - Suggestive of autoimmune hepatitis or chronic active hepatitis.Performed By: [employer] [place] [id number] Director: Dashawn Dumont MD, PhDCLIA Number: [id number] Performed By: #### L [id number] ####[facility] ([facility])[address] [place] [address] ANTI-SMOOTH MUSCLE ANTIBODY, IGG WITH REFLEX TO TITERon 11-18-2023 SMOOTH MUSCLE ANTIBODY 20 Units High 0-19 [facility] Comment on above: Result Comment: REFE [...] IFA ifsuspicion for AIH is strong.Performed By: [employer] [place], [place] [address]Lriaxhazuk Director: Dashawn Dumont MD, PhDCLIA Number: [id number] Performed By: #### L [id number] ####[facility] ([facility])[address] [place] [address] CBC WITH AUTO DIFFERENTIALon 11-18-2023 Basophils (Bld) [#/Vol] 0.02 10*3/uL Normal 0.00-0.20 [facility] Comment on above: Performed By: #### L [id number] ####[facility] ([facility] [place] [address] Basophils/100 WBC (Bld) 0.2 % Normal 0.0-1.0 [facility] Comment on above: Performed By: #### L [id number] ####[facility] ([facility] [place] [address] Eosinophils (Bld) [#/Vol] 0.01 10*3/uL Normal 0.00-0.50 [facility] Comment on above: Performed By: #### L [id number] ####[facility] (BEAKER)[address] [place] [address] Eosinophils/100 WBC (Bld) 0.1 % Normal 0.0-6.0 [facility] Comment on above: Performed By: #### L [id number] ####[facility] ([facility] [place] [address] Erythrocyte distribution width (RBC) [Ratio] 16.3 % High 11.5-15.0 [facility] Comment on above: Performed By: #### L [id number] ####[facility] ([facility] [place] [address] ERYTHROCYTE MEAN CORPUSCULAR HEMOGLOBIN CONCENTRATION (G/DL) BY AUTOMATED 32.1 g/dL Normal 32.0-35.0 [facility] Comment on above: Performed By: #### L [id number] ####[facility] (BEAKER)[address] [place] [address] Hematocrit (Bld) [Volume fraction] 23.7 % Low 39.0-55.0 [facility] Comment on above: Performed By: #### L [id number] ####[facility] (BEAKER)[address] [place] [address] Hemoglobin (Bld) [Mass/Vol] 7.6 g/dL Low 13.0-17.0 [facility] Comment on above: Performed By: #### L [id number] ####[facility] (BEAKER)[address] [place] [address] Immature granulocytes (Bld) [#/Vol] 0.05 10*3/uL Normal 0.00-0.20 [facility] Comment on above: Performed By: #### L [id number] ####[facility] (BEAKER)[address] [place] [address] Immature granulocytes/100 WBC (Bld) 0.6 % Normal 0.0-1.0 [facility] Comment on above: Performed By: #### L [id number] ####[facility] ([facility])[address] [place] [address] Lymphocytes (Bld) [#/Vol] 0.42 10*3/uL Low 1.20-4.00 [facility] Comment on above: Performed By: #### L [id number] ####[facility] ([facility])[address] [place] [address] Lymphocytes/100 WBC (Bld) 4.8 % Low 20.0-45.0 [facility] Comment on above: Performed By: #### L [id number] ####[facility] ([facility])[address] [place] [address] MCH (RBC) [Entitic mass] 26.5 pg Low 27.0-33.0 [facility] Comment on above: Performed By: #### L [id number] ####[facility] ([facility])[address] [place] [address] MCV (RBC) [Entitic vol] 82.6 fL Normal 82.0-98.0 [facility] Comment on above: Performed By: #### L [id number] ####[facility] ([facility])[address] [place] [address] Monocytes (Bld) [#/Vol] 0.82 10*3/uL Normal 0.10-1.00 [facility] Comment on above: Performed By: #### L [id number] ####[facility] ([facility])[address] [place] [address] Monocytes/100 WBC (Bld) 9.3 % Normal 5.0-12.0 [facility] Comment on above: Performed By: #### L [id number] ####[facility] ([facility])[address] [place] [address] Neutrophils (Bld) [#/Vol] 7.52 10*3/uL Normal 1.60-7.60 [facility] Comment on above: Performed By: #### L [id number] ####[facility] [place] [address] Neutrophils/100 WBC (Bld) 85.0 % High 40.0-72.0 [facility] Comment on above: Performed By: #### L [id number] ####[facility] ([facility])[address] [place] [address] NRBC (PER 100 WBCS) BY AUTOMATED COUNT 0.0 % Normal 0 [facility] Comment on above: Performed By: #### L [id number] ####[facility] ([facility])[address] [place] [address] PLATELETS (10*3/UL) IN BLOOD AUTOMATED COUNT 192 10*3/uL Normal 150-400 [facility] Comment on above: Performed By: #### L [id number] ####[facility] ([facility])[address] [place] [address] RBC (Bld) [#/Vol] 2.87 10*6/uL Low 4.20-5.70 [facility] Comment on above: Performed By: #### L [id number] ####[facility] ([facility])[address] [place] [address] WBC (Bld) [#/Vol] 8.84 10*3/uL Normal 4.00-10.60 [facility] Comment on above: Performed By: #### L [id number] ####[facility] ([facility])[address] [place] [address] CMV IGMon 11-18-2023 CMV IGM <8.0 Normal <=29.9 [facility] Comment on above: Result Comment: INTE [...] Tissues andCellular and Tissue-Based Products (HCT/P).Performed By: [employer] [place] [id number] Director: Dashawn Dumont MD, PhDCLIA Number: [id number] Performed By: #### L [id number] ####[facility] ([facility])[address] [place] [address] COMPREHENSIVE METABOLIC PANE Sridhar 11-18-2023 Albumin [Mass/Vol] 2.6 g/dL Low 3.5-5.7 [facility] Comment on above: Performed By: #### L [id number] ####[facility] (BEAKER)[address] [place] [address] ALP [Catalytic activity/Vol] 252 U/L High 34-104 [facility] Comment on above: Performed By: #### L [id number] ####[facility] (BE[facility]ER)[address] [place] [address] ALT [Catalytic activity/Vol] 280 U/L High 7-52 [facility] Comment on above: Performed By: #### L [id number] ####[facility] (BE[facility]ER)[address] [place] [address] Anion gap [Moles/Vol] 8 mmol/L Normal 7-20 [facility] Comment on above: Performed By: #### L [id number] ####[facility] (BEAKER)[address] [place] [address] AST [Catalytic activity/Vol] 293 U/L High 13-39 [facility] Comment on above: Performed By: #### L [id number] ####[facility] [place] [address] Bilirubin [Mass/Vol] 0.9 mg/dL Normal 0.3-1.0 [facility] Comment on above: Performed By: #### L [id number] ####[facility] (BE[facility]ER)[address] [place] [address] Calcium [Mass/Vol] 7.8 mg/dL Low 8.6-10.3 [facility] Comment on above: Performed By: #### L [id number] ####[facility] [place] [address] Chloride [Moles/Vol] 97 mmol/L Low 98-107 [facility] Comment on above: Performed By: #### L [id number] ####[facility] [place] [address] CO2 [Moles/Vol] 27 mmol/L Normal 21-31 [facility] Comment on above: Performed By: #### L [id number] ####[facility] [place] [address] Creatinine [Mass/Vol] 0.38 mg/dL Low 0.70-1.30 [facility] Comment on above: Performed By: #### L [id number] ####[facility] [place] [address] GLOMERULAR FILTRATION RATE ML/MIN/1.73 SQ M.PREDICTED 114.8 mL/min/1.73m*2 Normal >60.0 [facility] Comment on above: Result Comment: [facility]???s estimated glomerular filtration rate (eGFR) will [...] of individuals. Performed By: #### L [id number] ####[facility] ([facility])[address] [place] [address] Glucose [Mass/Vol] 106 mg/dL High 70-100 [facility] Comment on above: Performed By: #### L [id number] ####[facility] ([facility])[address] [place] [address] Potassium [Moles/Vol] 4.3 mmol/L Normal 3.5-5.1 [facility] Comment on above: Performed By: #### L [id number] ####[facility] ([facility])[address] [place] [address] Protein [Mass/Vol] 6.4 g/dL Normal 6.0-8.3 [facility] Comment on above: Performed By: #### L [id number] ####[facility] ([facility])[address] [place] [address] Sodium [Moles/Vol] 128 mmol/L Low 136-145 [facility] Comment on above: Performed By: #### L [id number] ####[facility] ([facility])[address] [place] [address] Performed By: #### L [id number] ####[facility] ([facility])[address] [place] [address] Urea nitrogen [Mass/Vol] 14 mg/dL Normal 7-25 [facility] Comment on above: Performed By: #### L [id number] ####[facility] ([facility])[address] [place] [address] UREA NITROGEN/CREATININE (MASS RATIO) IN SER/PLAS 36.8 [facility] Comment on above: Performed By: #### L [id number] ####[facility] ([facility])[address] [place] [address] CONSULTon 11-18-2023 CONSULT Normal [facility] CONSULT Normal [facility] DIGOXIN LEVELon 11-18-2023 DIGOXIN (NG/ML) IN SER/PLAS 0.6 ng/mL Low 0.7-2 [facility] Comment on above: Performed By: #### L [id number] ####[facility] ([facility])[address] [place] [address] GIOVANNA-GARG VIRUS VCA, IGMo n 11-18-2023 GIOVANNA-GARG VCA IGM 0.00 Normal <1.10 [facility] Comment on above: Result Comment: NORM AL RANGES:< OR = 0.90 NEGATIVE ; NO SIGNIFICANT LEVEL OF DETECTABLE EBV-VCA IgM AB0.91 - 1.09 EQUIVOCAL; REPEAT TESTING SUGGESTED> OR = 1.10 POSITIVE ; SIGNIFICANT LEVEL OF DETECTABLE EBV-VCA IgM AB Performed By: #### L [id number] ####[facility] ([facility])[address] [place] [address] HEMOGLOBINon 11-18-2023 Hemoglobin (Bld) [Mass/Vol] 7.7 g/dL Low 13.0-17.0 [facility] Comment on above: Performed By: #### L [id number] ####[facility] ([facility])[address] [place] [address] MITOCHONDRIAL ANTIBODIES, M2 on 11-18-2023 MITOCHONDRIAL M2 ANTIBODY 31.0 Units High 0.0-24.9 [facility] Comment on above: Result Comment: REFE [...] negative result doesnot rule out PBC.Performed By: [employer] [place] [id number] Director: Dashawn Dumont MD, PhDCLIA Number: [id number] Performed By: #### L [id number] ####[facility] ([facility])[address] [place] [address] NURSNOTEon 11-18-2023 NURSNOTE Varices banded x 1 Normal [facility] POCT GLUCOSE METER UNSOLICIT ED RESULTSon 11-18-2023 Glucose [Mass/Vol] 107 mg/dL High 70-105 [facility] Comment on above: Order Comment: Waive d Testing in the ED is performed under the ED CLIA certificate #[id number]. Result Comment: [email or web address] [id number] Value Noted Performed By: #### L [id number] ####[facility] ([facility])[address] [facility] [address] Glucose [Mass/Vol] 124 mg/dL High 70-105 [facility] Comment on above: Order Comment: Waive d Testing in the ED is performed under the ED CLIA certificate #[id number]. Result Comment: [email or web address] Performed By: #### L [id number] ####[facility] ([facility])[address] [facility] [place] [address] Glucose [Mass/Vol] 114 mg/dL High 70-105 [facility] Comment on above: Order Comment: Waive d Testing in the ED is performed under the ED CLIA certificate #[id number]. Result Comment: [email or web address] Performed By: #### L [id number] ####[facility] ([facility])[address] [place] [address] SODIUMon 11-18-2023 Sodium [Moles/Vol] 128 mmol/L Low 136-145 [facility] Comment on above: Performed By: #### L [id number] ####[facility] ([facility])[address] [place] [address] Sodium [Moles/Vol] 129 mmol/L Low 136-145 [facility] Comment on above: Performed By: #### L [id number] ####[facility] ([facility])[address] [place] [address] TISSUE TRANSGLUTAMINASE, IGA on 11-18-2023 TISSUE TRANSGLUTAMINASE, IGA <1.02 Normal 0.00-4.99 [facility] Comment on above: Result Comment: INTE [...] response totherapy. Performed By: #### L [id number] ####[facility] ([facility])[address] [place] [address] ACETAMINOPHEN LEVELon 2023 ACETAMINOPHEN (UG/ML) IN SER/PLAS <10 Low 10-30 [facility] Comment on above: Performed By: #### L [id number] ####[facility] ([facility])[address] [place] [address] APTTon 11-17-2023 ACTIVATED PARTIAL THROMBOPLASTIN TIME IN PPP BY COAGULATION ASSAY 53.6 Seconds High 25.0-35.0 [facility] Comment on above: Result Comment: Clin ical significance of the APTT is questionable in the presence of heparin. Performed By: #### L [id number] ####[facility] ([facility])[address] [place] [address] BASIC METABOLIC PANELon Anion gap [Moles/Vol] 9 mmol/L Normal 7-20 [facility] Comment on above: Performed By: #### L [id number] ####[facility] ([facility])[address] [place] [address] Calcium [Mass/Vol] 8.0 mg/dL Low 8.6-10.3 [facility] Comment on above: Performed By: #### L [id number] ####[facility] [place] [address] Chloride [Moles/Vol] 94 mmol/L Low 98-107 [facility] Comment on above: Performed By: #### L [id number] ####[facility] ([facility])[address] [place] [address] CO2 [Moles/Vol] 27 mmol/L Normal 21-31 [facility] Comment on above: Performed By: #### L [id number] ####[facility] ([facility])[address] [place] [address] Creatinine [Mass/Vol] 0.51 mg/dL Low 0.70-1.30 [facility] Comment on above: Performed By: #### L [id number] ####[facility] ([facility])[address] [place] [address] GLOMERULAR FILTRATION RATE ML/MIN/1.73 SQ M.PREDICTED 105.1 mL/min/1.73m*2 Normal >60.0 [facility] Comment on above: Result Comment: [facility]???s estimated glomerular filtration rate (eGFR) will [...] of individuals. Performed By: #### L [id number] ####[facility] [place] [address] Glucose [Mass/Vol] 156 mg/dL High 70-100 [facility] Comment on above: Performed By: #### L [id number] ####[facility] [place] [address] Potassium [Moles/Vol] 4.0 mmol/L Normal 3.5-5.1 [facility] Comment on above: Performed By: #### L [id number] ####[facility] ([facility])[address] [place] [address] Sodium [Moles/Vol] 126 mmol/L Low 136-145 [facility] Comment on above: Performed By: #### L [id number] ####[facility] ([facility])[address] [place] [address] Urea nitrogen [Mass/Vol] 18 mg/dL Normal 7-25 [facility] Comment on above: Performed By: #### L [id number] ####[facility] ([facility])[address] [place] [address] UREA NITROGEN/CREATININE (MASS RATIO) IN SER/PLAS 35.3 Normal [facility] Comment on above: Performed By: #### L [id number] ####[facility] ([facility])[address] [place] [address] CBC WITH AUTO DIFFERENTIALon 11-17-2023 Basophils (Bld) [#/Vol] 0.02 10*3/uL Normal 0.00-0.20 [facility] Comment on above: Performed By: #### L [id number] ####[facility] ([facility])[address] [place] [address] Basophils/100 WBC (Bld) 0.2 % Normal 0.0-1.0 [facility] Comment on above: Performed By: #### L [id number] ####[facility] [place] [address] Eosinophils (Bld) [#/Vol] 0.03 10*3/uL Normal 0.00-0.50 [facility] Comment on above: Performed By: #### L [id number] ####[facility] [place] [address] Eosinophils/100 WBC (Bld) 0.4 % Normal 0.0-6.0 [facility] Comment on above: Performed By: #### L [id number] ####[facility] ([facility])[address] [place] [address] Erythrocyte distribution width (RBC) [Ratio] 16.9 % High 11.5-15.0 [facility] Comment on above: Performed By: #### L [id number] ####[facility] ([facility])[address] [place] [address] ERYTHROCYTE MEAN CORPUSCULAR HEMOGLOBIN CONCENTRATION (G/DL) BY AUTOMATED 31.6 g/dL Low 32.0-35.0 [facility] Comment on above: Performed By: #### L [id number] ####[facility] ([facility])[address] [place] [address] Hematocrit (Bld) [Volume fraction] 21.5 % Low 39.0-55.0 [facility] Comment on above: Performed By: #### L [id number] ####[facility] ([facility])[address] [place] [address] Hemoglobin (Bld) [Mass/Vol] 6.8 g/dL Low 13.0-17.0 [facility] Comment on above: Performed By: #### L [id number] ####[facility] ([facility])[address] [place] [address] Immature granulocytes (Bld) [#/Vol] 0.04 10*3/uL Normal 0.00-0.20 [facility] Comment on above: Performed By: #### L [id number] ####[facility] ([facility])[address] [place] [address] Immature granulocytes/100 WBC (Bld) 0.5 % Normal 0.0-1.0 [facility] Comment on above: Performed By: #### L [id number] ####[facility] [place] [address] Lymphocytes (Bld) [#/Vol] 0.43 10*3/uL Low 1.20-4.00 [facility] Comment on above: Performed By: #### L [id number] ####[facility] ([facility])[address] [place] [address] Lymphocytes/100 WBC (Bld) 5.1 % Low 20.0-45.0 [facility] Comment on above: Performed By: #### L [id number] ####[facility] ([facility])[address] [place] [address] MCH (RBC) [Entitic mass] 26.3 pg Low 27.0-33.0 [facility] Comment on above: Performed By: #### L [id number] ####[facility] ([facility])[address] [place] [address] MCV (RBC) [Entitic vol] 83.0 fL Normal 82.0-98.0 [facility] Comment on above: Performed By: #### L [id number] ####[facility] ([facility])[address] [place] [address] Monocytes (Bld) [#/Vol] 0.77 10*3/uL Normal 0.10-1.00 [facility] Comment on above: Performed By: #### L [id number] ####[facility] ([facility])[address] [place] [address] Monocytes/100 WBC (Bld) 9.1 % Normal 5.0-12.0 [facility] Comment on above: Performed By: #### L [id number] ####[facility] ([facility])[address] [place] [address] Neutrophils (Bld) [#/Vol] 7.13 10*3/uL Normal 1.60-7.60 [facility] Comment on above: Performed By: #### L [id number] ####[facility] ([facility])[address] [place] [address] Neutrophils/100 WBC (Bld) 84.7 % High 40.0-72.0 [facility] Comment on above: Performed By: #### L [id number] ####[facility] ([facility])[address] [place] [address] NRBC (PER 100 WBCS) BY AUTOMATED COUNT 0.0 % Normal 0 [facility] Comment on above: Performed By: #### L [id number] ####[facility] ([facility])[address] [place] [address] PLATELETS (10*3/UL) IN BLOOD AUTOMATED COUNT 187 10*3/uL Normal 150-400 [facility] Comment on above: Performed By: #### L [id number] ####[facility] ([facility])[address] [place] [address] RBC (Bld) [#/Vol] 2.59 10*6/uL Low 4.20-5.70 [facility] Comment on above: Performed By: #### L [id number] ####[facility] ([facility])[address] [place] [address] WBC (Bld) [#/Vol] 8.42 10*3/uL Normal 4.00-10.60 [facility] Comment on above: Performed By: #### L [id number] ####[facility] ([facility])[address] [place] [address] CONSULTon 11-17-2023 CONSULT Normal [facility] EDPROVon 11-17-2023 EDPROV Normal [facility] HEPATIC FUNCTION PANELon Albumin [Mass/Vol] 2.7 g/dL Low 3.5-5.7 [facility] Comment on above: Performed By: #### L [id number] ####[facility] ([facility])[address] [place] [address] ALP [Catalytic activity/Vol] 308 U/L High 34-104 [facility] Comment on above: Performed By: #### L [id number] ####[facility] ([facility] [place] [address] ALT [Catalytic activity/Vol] 349 U/L High 7-52 [facility] Comment on above: Performed By: #### L [id number] ####[facility] ([facility])[address] [place] [address] AST [Catalytic activity/Vol] 523 U/L High 13-39 [facility] Comment on above: Performed By: #### L [id number] ####[facility] ([facility] [place] [address] Bilirubin [Mass/Vol] 0.4 mg/dL Normal 0.3-1.0 [facility] Comment on above: Performed By: #### L [id number] ####[facility] ([facility])[address] [place] [address] Magnesium [Mass/Vol] 0.4 mg/dL High 0-0.2 [facility] Comment on above: Performed By: #### L [id number] ####[facility] ([facility])[address] [place] [address] Protein [Mass/Vol] 6.8 g/dL Normal 6.0-8.3 [facility] Comment on above: Performed By: #### L [id number] ####[facility] ([facility])[address] [place] [address] HEPATITIS PANEL, ACUTEon HEPATITIS A VIRUS IGM AB PRESENCE IN SER/PLAS Indeterminate Abnormal Nonreactive [facility] Comment on above: Order Comment: Patie nts with specimens exhibiting indeterminate test results should be retested at approximately one-week intervals. Performed By: #### L [id number] ####[facility] [place] [address] HEPATITIS B VIRUS CORE AB (PRESENCE) IN SER/PLAS BY IMM Non-Reactive [facility] Comment on above: Order Comment: Patie nts with specimens exhibiting indeterminate test results should be retested at approximately one-week intervals. Performed By: #### L [id number] ####[facility] ([facility] [place] [address] HEPATITIS B VIRUS SURFACE AG PRESENCE IN SERUM Non-Reactive Normal Nonreactive [facility] Comment on above: Order Comment: Patie nts with specimens exhibiting indeterminate test results should be retested at approximately one-week intervals. Performed By: #### L [id number] ####[facility] ([facility])[address] [place] [address] HEPATITIS C VIRUS AB PRESENCE IN SERUM Non-Reactive Normal Nonreactive [facility] Comment on above: Order Comment: Patie nts with specimens exhibiting indeterminate test results should be retested at approximately one-week intervals. Performed By: #### L [id number] ####[facility] ([facility])[address] [place] [address] HPon 11-17-2023 HP Normal [facility] PROTIME-INRon 11-17-2023 INR IN PPP BY COAGULATION ASSAY 1.57 High 0.90-1.10 [facility] Comment on above: Result Comment: ACCC [...] CHEST 1995;[id number]. Performed By: #### L [id number] ####[facility] ([facility])[address] [place] [address] PROTHROMBIN TIME (PT) IN PPP BY COAGULATION ASSAY 18.8 Seconds High 12.3-14.8 [facility] Comment on above: Performed By: #### L [id number] ####[facility] ([facility])[address] [place] [address] TROPONIN Ion 11-17-2023 Troponin I.cardiac [Mass/Vol] 0.02 ng/mL Normal 0.00-0.04 [facility] Comment on above: Performed By: #### L [id number] ####[facility] ([facility])[address] [place] [address] TYPE AND SCREENon 11-17-2023 AB SCREEN Negative Normal [facility] Comment on above: Performed By: #### L [id number] ####[facility], ABO group Nom (Bld) O Normal [facility] Comment on above: Performed By: #### L [id number] ####[facility], RH TYPE IN BLOOD Positive Normal [facility] Comment on above: Performed By: #### L [id number] ####[facility], ANTI-XA (HEPARIN LEVEL)on HEPARIN UNFRACTIONATED (U/ML) IN PPP BY CHROMOGENIC METHOD 0.10 IU/mL Invalid Interpretation Code 0.3-0.7 [facility] Comment on above: Order Comment: Check anti-Xa level every 6 hours while on heparin infusion, or per protocol. Result Comment: [place] roxaban and Apixaban will interfere with the anti Xa assay used to monitor UFH and LMWH. Performed By: #### L [id number] ####[facility] ([facility])[address] [place] [address] HEPARIN UNFRACTIONATED (U/ML) IN PPP BY CHROMOGENIC METHOD <0.10 Invalid Interpretation Code 0.3-0.7 [facility] Comment on above: Order Comment: Check anti-Xa level every 6 hours while on heparin infusion, or per protocol. Result Comment: [place] roxaban and Apixaban will interfere with the anti Xa assay used to monitor UFH and LMWH. Performed By: #### L [id number] ####[facility] [place] [address] BASIC METABOLIC PANELon -3 Anion gap [Moles/Vol] 11 mmol/L Normal 7-20 [facility] Comment on above: Performed By: #### L [id number] ####[facility] [place] [address] Calcium [Mass/Vol] 7.9 mg/dL Low 8.6-10.3 [facility] Comment on above: Performed By: #### L [id number] ####[facility] [place] [address] Chloride [Moles/Vol] 98 mmol/L Normal 98-107 [facility] Comment on above: Performed By: #### L [id number] ####[facility] [place] [address] CO2 [Moles/Vol] 26 mmol/L Normal 21-31 [facility] Comment on above: Performed By: #### L [id number] ####[facility] [place] [address] Creatinine [Mass/Vol] 0.31 mg/dL Low 0.70-1.30 [facility] Comment on above: Performed By: #### L [id number] ####[facility] ([facility])[address] [place] [address] GLOMERULAR FILTRATION RATE ML/MIN/1.73 SQ M.PREDICTED 122.1 mL/min/1.73m*2 Normal >60.0 [facility] Comment on above: Result Comment: [facility]???s estimated glomerular filtration rate (eGFR) will [...] individuals. Performed By: #### L [id number] ####[facility] ([facility])[address] [place] [address] Glucose [Mass/Vol] 120 mg/dL High 70-100 [facility] Comment on above: Performed By: #### L [id number] ####[facility] ([facility])[address] [place] [address] Potassium [Moles/Vol] 3.8 mmol/L Normal 3.5-5.1 [facility] Comment on above: Performed By: #### L [id number] ####[facility] ([facility])[address] [place] [address] Sodium [Moles/Vol] 131 mmol/L Low 136-145 [facility] Comment on above: Performed By: #### L [id number] ####[facility] ([facility])[address] [place] [address] Urea nitrogen [Mass/Vol] 13 mg/dL Normal 7-25 [facility] Comment on above: Performed By: #### L [id number] ####[facility] ([facility])[address] [place] [address] UREA NITROGEN/CREATININE (MASS RATIO) IN SER/PLAS 41.9 Normal [facility] Comment on above: Performed By: #### L [id number] ####[facility] ([facility])[address] [place] [address] CBCon 11-08-2023 Erythrocyte distribution width (RBC) [Ratio] 16.7 % High 11.5-15.0 [facility] Comment on above: Performed By: #### L [id number] ####[facility] ([facility])[address] [place] [address] ERYTHROCYTE MEAN CORPUSCULAR HEMOGLOBIN CONCENTRATION (G/DL) BY AUTOMATED 31.8 g/dL Low 32.0-35.0 [facility] Comment on above: Performed By: #### L [id number] ####[facility] ([facility])[address] [place] [address] Hematocrit (Bld) [Volume fraction] 27.4 % Low 39.0-55.0 [facility] Comment on above: Performed By: #### L [id number] ####[facility] [place] [place] [address] Hemoglobin (Bld) [Mass/Vol] 8.7 g/dL Low 13.0-17.0 [facility] Comment on above: Performed By: #### L [id number] ####[facility] ([facility])[address] [place] [address] MCH (RBC) [Entitic mass] 26.2 pg Low 27.0-33.0 [facility] Comment on above: Performed By: #### L [id number] ####[facility] ([facility])[address] [place] [address] MCV (RBC) [Entitic vol] 82.5 fL Normal 82.0-98.0 [facility] Comment on above: Performed By: #### L [id number] ####[facility] ([facility])[address] [place] [address] PLATELETS (10*3/UL) IN BLOOD AUTOMATED COUNT 187 10*3/uL Normal 150-400 [facility] Comment on above: Performed By: #### L [id number] ####[facility] ([facility])[address] [place] [address] RBC (Bld) [#/Vol] 3.32 10*6/uL Low 4.20-5.70 [facility] Comment on above: Performed By: #### L [id number] ####[facility] [place] [address] WBC (Bld) [#/Vol] 8.48 10*3/uL Normal 4.00-10.60 [facility] Comment on above: Performed By: #### L [id number] ####[facility] [place] [address] DSon 11-08-2023 DS Normal [facility] MAGNESIUMon 11-08-2023 Magnesium [Mass/Vol] 1.6 mg/dL Low 1.9-2.7 [facility] Comment on above: Performed By: #### L [id number] ####[facility] ([facility])[address] [place] [address] NURSNOTEon 11-08-2023 NURSNOTE Striper amilcar marques report to [address] with no answer Normal [facility] PHOSPHORUSon 11-08-2023 Magnesium [Mass/Vol] 2.8 mg/dL Normal 2.5-5.0 [facility] Comment on above: Performed By: #### L [id number] ####[facility] ([facility])[address] [employer] EnvironmentalMEADV[place] [address] POCT GLUCOSE METER UNSOLICIT ED RESULTSon 11-08-2023 Glucose [Mass/Vol] 144 mg/dL High 70-105 [facility] Comment on above: Order Comment: Waive d Testing in the ED is performed under the ED CLIA certificate #[id number]. Result Comment: elac umsky Performed By: #### L [id number] ####[facility] ([facility])[address] [employer] [facility] [place] [address] Glucose [Mass/Vol] 141 mg/dL High 70-105 [facility] Comment on above: Order Comment: Waive d Testing in the ED is performed under the ED CLIA certificate #[id number]. Result Comment: elac umsky Performed By: #### L [id number] ####[facility] ([facility])[address] [place] [address] 30on 11-07-2023 30 Normal [facility] 30 Normal [facility] ANTI-XA (HEPARIN LEVEL)on HEPARIN UNFRACTIONATED (U/ML) IN PPP BY CHROMOGENIC METHOD <0.10 Invalid Interpretation Code 0.3-0.7 [facility] Comment on above: Order Comment: Check anti-Xa level every 6 hours while on heparin infusion, or per protocol. Result Comment: [place] roxaban and Apixaban will interfere with the anti Xa assay used to monitor UFH and LMWH. Performed By: #### L [id number] ####[facility] ([facility])[address] [place] [address] HEPARIN UNFRACTIONATED (U/ML) IN PPP BY CHROMOGENIC METHOD <0.10 Invalid Interpretation Code 0.3-0.7 [facility] Comment on above: Order Comment: Check anti-Xa level every 6 hours while on heparin infusion, or per protocol. Result Comment: [place] roxaban and Apixaban will interfere with the anti Xa assay used to monitor UFH and LMWH. Performed By: #### L [id number] ####[facility] ([facility])[address] [place] [address] APTTon 11-07-2023 ACTIVATED PARTIAL THROMBOPLASTIN TIME IN PPP BY COAGULATION ASSAY 44.6 Seconds High 25.0-35.0 [facility] Comment on above: Order Comment: Basel ine aPTT before initiating heparin infusion. Result Comment: Clin ical significance of the APTT is questionable in the presence of heparin. Performed By: #### L [id number] ####[facility] ([facility])[address] [place] [place] [address] BASIC METABOLIC PANELon 10-11 Anion gap [Moles/Vol] 16 mmol/L Normal 7-20 [facility] Comment on above: Performed By: #### L [id number] ####[facility] ([facility])[address] [place] [address] Calcium [Mass/Vol] 8.6 mg/dL Normal 8.6-10.3 [facility] Comment on above: Performed By: #### L [id number] ####[facility] ([facility])[address] [place] [address] Chloride [Moles/Vol] 97 mmol/L Low 98-107 [facility] Comment on above: Performed By: #### L [id number] ####[facility] ([facility])[address] [place] [address] CO2 [Moles/Vol] 21 mmol/L Normal 21-31 [facility] Comment on above: Performed By: #### L [id number] ####[facility] ([facility])[address] [place] [address] Creatinine [Mass/Vol] 0.32 mg/dL Low 0.70-1.30 [facility] Comment on above: Performed By: #### L [id number] ####[facility] ([facility])[address] [place] [address] GLOMERULAR FILTRATION RATE ML/MIN/1.73 SQ M.PREDICTED 121.0 mL/min/1.73m*2 Normal >60.0 [facility] Comment on above: Result Comment: [facility]???s estimated glomerular filtration rate (eGFR) will [...] of individuals. Performed By: #### L [id number] ####[facility] ([facility])[address] [place] [address] Glucose [Mass/Vol] 114 mg/dL High 70-100 [facility] Comment on above: Performed By: #### L [id number] ####[facility] ([facility])[address] [place] [address] Potassium [Moles/Vol] 4.1 mmol/L Normal 3.5-5.1 [facility] Comment on above: Performed By: #### L [id number] ####[facility] ([facility])[address] [place] [address] Sodium [Moles/Vol] 130 mmol/L Low 136-145 [facility] Comment on above: Performed By: #### L [id number] ####[facility] ([facility])[address] [place] [address] Urea nitrogen [Mass/Vol] 5 mg/dL Low 7-25 [facility] Comment on above: Performed By: #### L [id number] ####[facility] ([facility])[address] [address] UREA NITROGEN/CREATININE (MASS RATIO) IN SER/PLAS 15.6 Normal [facility] Comment on above: Performed By: #### L [id number] ####[facility] ([facility])[address] [address] CBCon 11-07-2023 Erythrocyte distribution width (RBC) [Ratio] 16.8 % High 11.5-15.0 [facility] Comment on above: Performed By: #### L [id number] ####[facility] ([facility])[address] [address] ERYTHROCYTE MEAN CORPUSCULAR HEMOGLOBIN CONCENTRATION (G/DL) BY AUTOMATED 32.1 g/dL Normal 32.0-35.0 [facility] Comment on above: Performed By: #### L [id number] ####[facility] ([facility])[address] [place] [address] Hematocrit (Bld) [Volume fraction] 29.3 % Low 39.0-55.0 [facility] Comment on above: Performed By: #### L [id number] ####[facility] ([facility])[address] [place] [address] Hemoglobin (Bld) [Mass/Vol] 9.4 g/dL Low 13.0-17.0 [facility] Comment on above: Performed By: #### L [id number] ####[facility] [place] [address] MCH (RBC) [Entitic mass] 26.6 pg Low 27.0-33.0 [facility] Comment on above: Performed By: #### L [id number] ####[facility] [place] [address] MCV (RBC) [Entitic vol] 83.0 fL Normal 82.0-98.0 [facility] Comment on above: Performed By: #### L [id number] ####[facility] ([facility])[address] [place] [address] PLATELETS (10*3/UL) IN BLOOD AUTOMATED COUNT 214 10*3/uL Normal 150-400 [facility] Comment on above: Performed By: #### L [id number] ####[facility] ([facility])[address] [place] [address] RBC (Bld) [#/Vol] 3.53 10*6/uL Low 4.20-5.70 [facility] Comment on above: Performed By: #### L [id number] ####[facility] ([facility])[address] [place] [address] WBC (Bld) [#/Vol] 10.83 10*3/uL High 4.00-10.60 [facility] Comment on above: Performed By: #### L [id number] ####[facility] ([facility])[address] [place] [address] PLATELET COUNTon 11-07-2023 PLATELETS (10*3/UL) IN BLOOD AUTOMATED COUNT 208 10*3/uL Normal 150-400 [facility] Comment on above: Performed By: #### L [id number] ####[facility] ([facility])[address] [place] [address] POCT GLUCOSE METER UNSOLICIT ED RESULTSon 11-07-2023 Glucose [Mass/Vol] 143 mg/dL High 70-105 [facility] Comment on above: Order Comment: Waive d Testing in the ED is performed under the ED CLIA certificate #[id number]. Result Comment: [email or web address] [email or web address] Performed By: #### L [id number] ####[facility] [place] [address] Glucose [Mass/Vol] 131 mg/dL High 70-105 [facility] Comment on above: Order Comment: Waive d Testing in the ED is performed under the ED CLIA certificate #[id number]. Result Comment: elac umsky Performed By: #### L [id number] ####[facility] ([facility])[address] [place] [address] Glucose [Mass/Vol] 177 mg/dL High 70-105 [facility] Comment on above: Order Comment: Waive d Testing in the ED is performed under the ED CLIA certificate #[id number]. Result Comment: elac umsky Performed By: #### L [id number] ####[facility] ([facility])[address] [place] [address] Glucose [Mass/Vol] 133 mg/dL High 70-105 [facility] Comment on above: Order Comment: Waive d Testing in the ED is performed under the ED CLIA certificate #[id number]. Result Comment: elac umsky Performed By: #### L [id number] ####[facility] ([facility])[address] [place] [address] APTTon 11-06-2023 ACTIVATED PARTIAL THROMBOPLASTIN TIME IN PPP BY COAGULATION ASSAY 43.9 Seconds High 25.0-35.0 [facility] Comment on above: Order Comment: Check aPTT every 6 hours while on heparin infusion, or per protocol. Result Comment: Clin ical significance of the APTT is questionable in the presence of heparin. Performed By: #### L [id number] ####[facility] ([facility])[address] [place] [address] CBCon 11-06-2023 Erythrocyte distribution width (RBC) [Ratio] 16.8 % High 11.5-15.0 [facility] Comment on above: Performed By: #### L [id number] ####[facility] ([facility])[address] [place] [address] ERYTHROCYTE MEAN CORPUSCULAR HEMOGLOBIN CONCENTRATION (G/DL) BY AUTOMATED 32.0 g/dL Normal 32.0-35.0 [facility] Comment on above: Performed By: #### L [id number] ####[facility] ([facility])[address] [place] [address] Hematocrit (Bld) [Volume fraction] 27.8 % Low 39.0-55.0 [facility] Comment on above: Performed By: #### L [id number] ####[facility] [place] [address] Hemoglobin (Bld) [Mass/Vol] 8.9 g/dL Low 13.0-17.0 [facility] Comment on above: Performed By: #### L [id number] ####[facility] [place] [address] MCH (RBC) [Entitic mass] 26.8 pg Low 27.0-33.0 [facility] Comment on above: Performed By: #### L [id number] ####[facility] [place] [address] MCV (RBC) [Entitic vol] 83.7 fL Normal 82.0-98.0 [facility] Comment on above: Performed By: #### L [id number] ####[facility] ([facility])[address] [place] [address] PLATELETS (10*3/UL) IN BLOOD AUTOMATED COUNT 175 10*3/uL Normal 150-400 [facility] Comment on above: Performed By: #### L [id number] ####[facility] ([facility])[address] [place] [address] RBC (Bld) [#/Vol] 3.32 10*6/uL Low 4.20-5.70 [facility] Comment on above: Performed By: #### L [id number] ####[facility] ([facility])[address] [place] [address] WBC (Bld) [#/Vol] 8.08 10*3/uL Normal 4.00-10.60 [facility] Comment on above: Performed By: #### L [id number] ####[facility] ([facility])[address] [place] [address] COMPREHENSIVE METABOLIC PANE Sridhar 11-06-2023 Albumin [Mass/Vol] 3.0 g/dL Low 3.5-5.7 [facility] Comment on above: Performed By: #### L [id number] ####[facility] ([facility])[address] [place] [address] ALP [Catalytic activity/Vol] 139 U/L High 34-104 [facility] Comment on above: Performed By: #### L [id number] ####[facility] [place] [address] ALT [Catalytic activity/Vol] 80 U/L High 7-52 [facility] Comment on above: Performed By: #### L [id number] ####[facility] ([facility])[address] [place] [address] Anion gap [Moles/Vol] 9 mmol/L Normal 7-20 [facility] Comment on above: Performed By: #### L [id number] ####[facility] [place] [address] AST [Catalytic activity/Vol] 71 U/L High 13-39 [facility] Comment on above: Performed By: #### L [id number] ####[facility] [place] [address] Bilirubin [Mass/Vol] 0.6 mg/dL Normal 0.3-1.0 [facility] Comment on above: Performed By: #### L [id number] ####[facility] ([facility])[address] [place] [address] Calcium [Mass/Vol] 8.3 mg/dL Low 8.6-10.3 [facility] Comment on above: Performed By: #### L [id number] ####[facility] ([facility])[address] [place] [address] Chloride [Moles/Vol] 97 mmol/L Low 98-107 [facility] Comment on above: Performed By: #### L [id number] ####[facility] [place] [address] CO2 [Moles/Vol] 27 mmol/L Normal 21-31 [facility] Comment on above: Performed By: #### L [id number] ####[facility] ([facility])[address] [place] [address] Creatinine [Mass/Vol] 0.35 mg/dL Low 0.70-1.30 [facility] Comment on above: Performed By: #### L [id number] ####[facility] ([facility])[address] [place] [address] GLOMERULAR FILTRATION RATE ML/MIN/1.73 SQ M.PREDICTED 117.7 mL/min/1.73m*2 Normal >60.0 [facility] Comment on above: Result Comment: [facility]???s estimated glomerular filtration rate (eGFR) will [...] of individuals. Performed By: #### L [id number] ####[facility] ([facility])[address] [place] [address] Glucose [Mass/Vol] 153 mg/dL High 70-100 [facility] Comment on above: Performed By: #### L [id number] ####[facility] [place] [address] Potassium [Moles/Vol] 2.8 mmol/L Invalid Interpretation Code 3.5-5.1 [facility] Comment on above: Performed By: #### L [id number] ####[facility] [place] [address] Protein [Mass/Vol] 6.1 g/dL Normal 6.0-8.3 [facility] Comment on above: Performed By: #### L [id number] ####[facility] ([facility])[address] [place] [address] Sodium [Moles/Vol] 130 mmol/L Low 136-145 [facility] Comment on above: Performed By: #### L [id number] ####[facility] ([facility])[address] [place] [address] Urea nitrogen [Mass/Vol] 4 mg/dL Low 7-25 [facility] Comment on above: Performed By: #### L [id number] ####[facility] ([facility])[address] [place] [address] UREA NITROGEN/CREATININE (MASS RATIO) IN SER/PLAS 11.4 Normal [facility] Comment on above: Performed By: #### L [id number] ####[facility] ([facility])[address] [place] [address] POCT GLUCOSE METER UNSOLICIT ED RESULTSon 11-06-2023 Glucose [Mass/Vol] 159 mg/dL High 70-105 [facility] Comment on above: Order Comment: Waive d Testing in the ED is performed under the ED CLIA certificate #[id number]. Result Comment: [email or web address] Performed By: #### L [id number] ####[facility] ([facility])[address] [place] [address] Glucose [Mass/Vol] 122 mg/dL High 70-105 [facility] Comment on above: Order Comment: Waive d Testing in the ED is performed under the ED CLIA certificate #[id number]. Result Comment: [email or web address] llh Performed By: #### L [id number] ####[facility] ([facility])[address] [place] [address] Glucose [Mass/Vol] 140 mg/dL High 70-105 [facility] Comment on above: Order Comment: Waive d Testing in the ED is performed under the ED CLIA certificate #[id number]. Result Comment: kshe llh Performed By: #### L [id number] ####[facility] ([facility])[address] [place] [address] Glucose [Mass/Vol] 144 mg/dL High 70-105 [facility] Comment on above: Order Comment: Waive d Testing in the ED is performed under the ED CLIA certificate #[id number]. Result Comment: kshe llh Performed By: #### L [id number] ####[facility] ([facility])[address] [place] [address] 30on 11-05-2023 30 Normal [facility] APTTon 11-05-2023 ACTIVATED PARTIAL THROMBOPLASTIN TIME IN PPP BY COAGULATION ASSAY 45.3 Seconds High 25.0-35.0 [facility] Comment on above: Order Comment: Check aPTT every 6 hours while on heparin infusion, or per protocol. Result Comment: Clin ical significance of the APTT is questionable in the presence of heparin. Performed By: #### L [id number] ####[facility] ([facility])[address] [place] [address] CBCon 11-05-2023 Erythrocyte distribution width (RBC) [Ratio] 16.8 % High 11.5-15.0 [facility] Comment on above: Performed By: #### L [id number] ####[facility] ([facility])[address] [place] [address] ERYTHROCYTE MEAN CORPUSCULAR HEMOGLOBIN CONCENTRATION (G/DL) BY AUTOMATED 32.1 g/dL Normal 32.0-35.0 [facility] Comment on above: Performed By: #### L [id number] ####[facility] ([facility])[address] [place] [address] Hematocrit (Bld) [Volume fraction] 24.3 % Low 39.0-55.0 [facility] Comment on above: Performed By: #### L [id number] ####[facility] [place] [address] Hemoglobin (Bld) [Mass/Vol] 7.8 g/dL Low 13.0-17.0 [facility] Comment on above: Performed By: #### L [id number] ####[facility] ([facility])[address] [place] [address] MCH (RBC) [Entitic mass] 27.5 pg Normal 27.0-33.0 [facility] Comment on above: Performed By: #### L [id number] ####[facility] ([facility])[address] [place] [address] MCV (RBC) [Entitic vol] 85.6 fL Normal 82.0-98.0 [facility] Comment on above: Performed By: #### L [id number] ####[facility] ([facility])[address] [place] [address] PLATELETS (10*3/UL) IN BLOOD AUTOMATED COUNT 124 10*3/uL Low 150-400 [facility] Comment on above: Performed By: #### L [id number] ####[facility] ([facility])[address] [place] [address] RBC (Bld) [#/Vol] 2.84 10*6/uL Low 4.20-5.70 [facility] Comment on above: Performed By: #### L [id number] ####[facility] ([facility])[address] [place] [address] WBC (Bld) [#/Vol] 3.24 10*3/uL Low 4.00-10.60 [facility] Comment on above: Performed By: #### L [id number] ####[facility] ([facility])[address] [place] [address] COMPREHENSIVE METABOLIC PANE Sridhar 11-05-2023 Albumin [Mass/Vol] 2.9 g/dL Low 3.5-5.7 [facility] Comment on above: Performed By: #### L [id number] ####[facility] [place] [address] ALP [Catalytic activity/Vol] 132 U/L High 34-104 [facility] Comment on above: Performed By: #### L [id number] ####[facility] ([facility])[address] [place] [address] ALT [Catalytic activity/Vol] 88 U/L High 7-52 [facility] Comment on above: Performed By: #### L [id number] ####[facility] ([facility])[address] [place] [address] Anion gap [Moles/Vol] 7 mmol/L Normal 7-20 [facility] Comment on above: Performed By: #### L [id number] ####[facility] ([facility])[address] [place] [address] AST [Catalytic activity/Vol] 61 U/L High 13-39 [facility] Comment on above: Performed By: #### L [id number] ####[facility] ([facility])[address] [place] [address] Bilirubin [Mass/Vol] 0.3 mg/dL Normal 0.3-1.0 [facility] Comment on above: Performed By: #### L [id number] ####[facility] ([facility])[address] [place] [address] Calcium [Mass/Vol] 8.4 mg/dL Low 8.6-10.3 [facility] Comment on above: Performed By: #### L [id number] ####[facility] ([facility])[address] [place] [address] Chloride [Moles/Vol] 104 mmol/L Normal 98-107 [facility] Comment on above: Performed By: #### L [id number] ####[facility] ([facility])[address] [place] [address] CO2 [Moles/Vol] 26 mmol/L Normal 21-31 [facility] Comment on above: Performed By: #### L [id number] ####[facility] ([facility])[address] [place] [address] Creatinine [Mass/Vol] 0.42 mg/dL Low 0.70-1.30 [facility] Comment on above: Performed By: #### L [id number] ####[facility] ([facility])[address] [place] [address] GLOMERULAR FILTRATION RATE ML/MIN/1.73 SQ M.PREDICTED 111.4 mL/min/1.73m*2 Normal >60.0 [facility] Comment on above: Result Comment: [facility]???s estimated glomerular filtration rate (eGFR) will [...] of individuals. Performed By: #### L [id number] ####[facility] ([facility])[address] [place] [address] Glucose [Mass/Vol] 120 mg/dL High 70-100 [facility] Comment on above: Performed By: #### L [id number] ####[facility] ([facility])[address] [place] [address] Potassium [Moles/Vol] 3.4 mmol/L Low 3.5-5.1 [facility] Comment on above: Performed By: #### L [id number] ####[facility] ([facility])[address] [place] [address] Protein [Mass/Vol] 5.6 g/dL Low 6.0-8.3 [facility] Comment on above: Performed By: #### L [id number] ####[facility] ([facility])[address] [place] [address] Sodium [Moles/Vol] 134 mmol/L Low 136-145 [facility] Comment on above: Performed By: #### L [id number] ####[facility] ([facility])[address] [place] [address] Urea nitrogen [Mass/Vol] 9 mg/dL Normal 7-25 [facility] Comment on above: Performed By: #### L [id number] ####[facility] ([facility])[address] [place] [address] UREA NITROGEN/CREATININE (MASS RATIO) IN SER/PLAS 21.4 [facility] Comment on above: Performed By: #### L [id number] ####[facility] ([facility])[address] [place] [address] CONSULTon 11-05-2023 CONSULT Normal [facility] POCT GLUCOSE METER UNSOLICIT ED RESULTSon 11-05-2023 Glucose [Mass/Vol] 119 mg/dL High 70-105 [facility] Comment on above: Order Comment: Waive d Testing in the ED is performed under the ED CLIA certificate #[id number]. Result Comment: [email or web address] Performed By: #### L [id number] ####[facility] ([facility])[address] [place] [address] Glucose [Mass/Vol] 213 mg/dL High 70-105 [facility] Comment on above: Order Comment: Waive d Testing in the ED is performed under the ED CLIA certificate #[id number]. Result Comment: [email or web address] Performed By: #### L [id number] ####[facility] ([facility])[address] [place] [address] Glucose [Mass/Vol] 163 mg/dL High 70-105 [facility] Comment on above: Order Comment: Waive d Testing in the ED is performed under the ED CLIA certificate #[id number]. Result Comment: [email or web address] Performed By: #### L [id number] ####[facility] ([facility])[address] [place] [address] Glucose [Mass/Vol] 106 mg/dL High 70-105 [facility] Comment on above: Order Comment: Waive d Testing in the ED is performed under the ED CLIA certificate #[id number]. Result Comment: [email or web address] Performed By: #### L [id number] ####[facility] ([facility])[address] [place] [address] VANCOMYCIN, TROUGHon 024 VANCOMYCIN (UG/ML) IN SER/PLAS - TROUGH 11.5 ug/mL Normal 5.0-20.0 [facility] Comment on above: Order Comment: Pleas e draw one hour before vancomycin infusion Performed By: #### L [id number] ####[facility] ([facility])[address] [place] [address] 30on 11-04-2023 30 Normal [facility] 30 [facility] 36on 11-04-2023 36 Yes. Patient can kenia l us after surgery to reschedule an appointment [facility] 36 Pt canceled appt on 11/09/23 due to patient having surgery today. would like to know if he need to reschedule? Normal [facility] ANESon 11-04-2023 ANES Normal [facility] ANES Normal [facility] APTTon 11-04-2023 ACTIVATED PARTIAL THROMBOPLASTIN TIME IN PPP BY COAGULATION ASSAY 80.2 Seconds High 25.0-35.0 [facility] Comment on above: Order Comment: Check aPTT every 6 hours while on heparin infusion, or per protocol. Result Comment: Clin ical significance of the APTT is questionable in the presence of heparin. Performed By: #### L [id number] ####[facility] ([facility])[address] [place] [address] CBCon 11-04-2023 Erythrocyte distribution width (RBC) [Ratio] 16.5 % High 11.5-15.0 [facility] Comment on above: Performed By: #### L [id number] ####[facility] ([facility])[address] [place] [address] ERYTHROCYTE MEAN CORPUSCULAR HEMOGLOBIN CONCENTRATION (G/DL) BY AUTOMATED 31.5 g/dL Low 32.0-35.0 [facility] Comment on above: Performed By: #### L [id number] ####[facility] [place] [address] Hematocrit (Bld) [Volume fraction] 24.1 % Low 39.0-55.0 [facility] Comment on above: Performed By: #### L [id number] ####[facility] ([facility])[address] [place] [address] Hemoglobin (Bld) [Mass/Vol] 7.6 g/dL Low 13.0-17.0 [facility] Comment on above: Performed By: #### L [id number] ####[facility] ([facility])[address] [place] [address] MCH (RBC) [Entitic mass] 27.0 pg Normal 27.0-33.0 [facility] Comment on above: Performed By: #### L [id number] ####[facility] ([facility])[address] [place] [address] MCV (RBC) [Entitic vol] 85.5 fL Normal 82.0-98.0 [facility] Comment on above: Performed By: #### L [id number] ####[facility] ([facility])[address] [place] [address] PLATELETS (10*3/UL) IN BLOOD AUTOMATED COUNT 132 10*3/uL Low 150-400 [facility] Comment on above: Performed By: #### L [id number] ####[facility] ([facility])[address] [place] [address] RBC (Bld) [#/Vol] 2.82 10*6/uL Low 4.20-5.70 [facility] Comment on above: Performed By: #### L [id number] ####[facility] ([facility])[address], [place] [address] WBC (Bld) [#/Vol] 4.29 10*3/uL Normal 4.00-10.60 [facility] Comment on above: Performed By: #### L [id number] ####[facility] ([facility])[address] [place] [address] COMPREHENSIVE METABOLIC PANE Sridhar 11-04-2023 Albumin [Mass/Vol] 2.9 g/dL Low 3.5-5.7 [facility] Comment on above: Performed By: #### L [id number] ####[facility] ([facility])[address] [place] [address] ALP [Catalytic activity/Vol] 116 U/L High 34-104 [facility] Comment on above: Performed By: #### L [id number] ####[facility] ([facility])[address] [place] [address] ALT [Catalytic activity/Vol] 92 U/L High 7-52 [facility] Comment on above: Performed By: #### L [id number] ####[facility] ([facility])[address] [place] [address] Anion gap [Moles/Vol] 9 mmol/L Normal 7-20 [facility] Comment on above: Performed By: #### L [id number] ####[facility] ([facility])[address] [place] [address] AST [Catalytic activity/Vol] 47 U/L High 13-39 [facility] Comment on above: Performed By: #### L [id number] ####[facility] ([facility])[address] [place] [address] Bilirubin [Mass/Vol] 0.4 mg/dL Normal 0.3-1.0 [facility] Comment on above: Performed By: #### L [id number] ####[facility] ([facility])[address] [place] [address] Calcium [Mass/Vol] 8.1 mg/dL Low 8.6-10.3 [facility] Comment on above: Performed By: #### L [id number] ####[facility] ([facility])[address] [place] [address] Chloride [Moles/Vol] 100 mmol/L Normal 98-107 [facility] Comment on above: Performed By: #### L [id number] ####[facility] [place] [address] CO2 [Moles/Vol] 25 mmol/L Normal 21-31 [facility] Comment on above: Performed By: #### L [id number] ####[facility] ([facility])[address] [place] [address] Creatinine [Mass/Vol] 0.37 mg/dL Low 0.70-1.30 [facility] Comment on above: Performed By: #### L [id number] ####[facility] ([facility])[address] [place] [address] GLOMERULAR FILTRATION RATE ML/MIN/1.73 SQ M.PREDICTED 115.8 mL/min/1.73m*2 Normal >60.0 [facility] Comment on above: Result Comment: [facility]???s estimated glomerular filtration rate (eGFR) will [...] of individuals. Performed By: #### L [id number] ####[facility] ([facility] [place] [address] Glucose [Mass/Vol] 111 mg/dL High 70-100 [facility] Comment on above: Performed By: #### L [id number] ####[facility] ([facility] [place] [address] Potassium [Moles/Vol] 3.3 mmol/L Low 3.5-5.1 [facility] Comment on above: Performed By: #### L [id number] ####[facility] ([facility] [place] [address] Protein [Mass/Vol] 5.6 g/dL Low 6.0-8.3 [facility] Comment on above: Performed By: #### L [id number] ####[facility] ([facility] [place] [address] Sodium [Moles/Vol] 131 mmol/L Low 136-145 [facility] Comment on above: Performed By: #### L [id number] ####[facility] ([facility])[address] [place] [address] Urea nitrogen [Mass/Vol] 9 mg/dL Normal 7-25 [facility] Comment on above: Performed By: #### L [id number] ####[facility] ([facility])[address] [place] [address] UREA NITROGEN/CREATININE (MASS RATIO) IN SER/PLAS 24.3 Normal [facility] Comment on above: Performed By: #### L [id number] ####[facility] ([facility])[address] [place] [address] HISTOLOGY - TISSUE EXAMon LAB AP CASE REPORT Normal [facility] Comment on above: Order Comment: Pre-o p diagnosis:Limb ischemia [I99.8] Result Comment: Surg ical Pathology Case: [id number] Provider: Anjelica Zapata MD Collected: 11/04/2023 1850Ordering Location: [facility] Main Operating Room Received: 11/07/2023 0632Pathologist: MONICA Alanpecimen: Leg, 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 Leg. Normal [facility] Comment on above: Order Comment: [...] as follows:A1: Skin and soft tissue margin, benefits representative sectionA2: Bone marrow, tibial marginA3: Great toe, benefits representative longitudinal section after decalcificationA4: Areas of erythematous erosion, benefits representative sectionsA5: Anterior tibial artery, benefits representative cross sectionsA6: Posterior tibial artery, benefits representative cross sectionsA7: Dorsalis pedis artery, benefits representative cross section Shani Smyth, Student Fellow Performed By: #### L [id number] ####[facility] ([facility])[address] [place] [address] LAB AP MICROSCOPIC DESCRIPTION Microscopic examination performed. 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 - Necrotic bone and soft tissues. - Soft tissue resection margin viable. - Bone marrow margin free of acute inflammation. - Arterial artheromatous plaques with calcification. Performed By: #### L [id number] ####[facility] ([facility])[address] [place] [address] OPNOTEon 11-04-2023 OPNOTE Normal [facility] OSMOLALITY, URINEon 11-04-19 24 OSMOLALITY, URINE 383 mOsm/kg Normal 80-1300 [facility] Comment on above: Result Comment: Test Performed by [employer] [address] [place] [address] - Released 11/04/2023 16:39 Performed By: #### L [id number] ####[facility] [address] [place] [address] POCT GLUCOSE METER UNSOLICIT ED RESULTSon 11-04-2023 Glucose [Mass/Vol] 117 mg/dL High 70-105 [facility] Comment on above: Order Comment: Waive d Testing in the ED is performed under the ED CLIA certificate #[id number]. Result Comment: [email or web address] Performed By: #### L [id number] ####[facility] ([facility])[address] [place] [address] Glucose [Mass/Vol] 118 mg/dL High 70-105 [facility] Comment on above: Order Comment: Waive d Testing in the ED is performed under the ED CLIA certificate #[id number]. Result Comment: [email or web address] Performed By: #### L [id number] ####[facility] ([facility])[address] [place] [address] Glucose [Mass/Vol] 131 mg/dL High 70-105 [facility] Comment on above: Order Comment: Waive d Testing in the ED is performed under the ED CLIA certificate #[id number]. Result Comment: [email or web address] Performed By: #### L [id number] ####[facility] ([facility])[address] [place] [address] SODIUM, URINE, RANDOMon 10-11 Sodium (U) [Moles/Vol] 86 mmol/L [facility] Comment on above: Performed By: #### L [id number] ####[facility] ([facility])[address] [place] [address] TYPE AND SCREENon 11-04-2023 AB SCREEN Negative Normal [facility] Comment on above: Performed By: #### L [id number] ####[facility]OD [facility], ABO group Nom (Bld) O [facility] Comment on above: Performed By: #### L [id number] ####[facility], RH TYPE IN BLOOD Positive Normal [facility] Comment on above: Performed By: #### L [id number] ####[facility], Telephoneon 11-04-2023 Telephone Normal [facility] 30on 11-03-2023 30 Normal [facility] APTTon 11-03-2023 ACTIVATED PARTIAL THROMBOPLASTIN TIME IN PPP BY COAGULATION ASSAY 72.3 Seconds High 25.0-35.0 [facility] Comment on above: Order Comment: Check aPTT every 6 hours while on heparin infusion, or per protocol. Result Comment: Clin ical significance of the APTT is questionable in the presence of heparin. Performed By: #### L [id number] ####[facility] ([facility])[address] [place] [address] ACTIVATED PARTIAL THROMBOPLASTIN TIME IN PPP BY COAGULATION ASSAY 75.8 Seconds High 25.0-35.0 [facility] Comment on above: Order Comment: Check aPTT every 6 hours while on heparin infusion, or per protocol. Result Comment: Clin ical significance of the APTT is questionable in the presence of heparin. Performed By: #### L [id number] ####[facility] ([facility])[address] [place] [address] ACTIVATED PARTIAL THROMBOPLASTIN TIME IN PPP BY COAGULATION ASSAY 84.3 Seconds High 25.0-35.0 [facility] Comment on above: Order Comment: Check aPTT every 6 hours while on heparin infusion, or per protocol. Result Comment: Clin ical significance of the APTT is questionable in the presence of heparin. Performed By: #### L [id number] ####[facility] ([facility])[address] [place] [address] BASIC METABOLIC PANELon 10-11 Anion gap [Moles/Vol] 8 mmol/L Normal 7-20 [facility] Comment on above: Performed By: #### L [id number] ####[facility] ([facility])[address] [place] [address] Calcium [Mass/Vol] 8.7 mg/dL Normal 8.6-10.3 [facility] Comment on above: Performed By: #### L [id number] ####[facility] ([facility])[address] [place] [address] Chloride [Moles/Vol] 98 mmol/L Normal 98-107 [facility] Comment on above: Performed By: #### L [id number] ####[facility] ([facility])[address] [place] [address] CO2 [Moles/Vol] 27 mmol/L Normal 21-31 [facility] Comment on above: Performed By: #### L [id number] ####[facility] ([facility])[address] [place] [address] Creatinine [Mass/Vol] 0.41 mg/dL Low 0.70-1.30 [facility] Comment on above: Performed By: #### L [id number] ####[facility] ([facility])[address] [place] [address] GLOMERULAR FILTRATION RATE ML/MIN/1.73 SQ M.PREDICTED 112.2 mL/min/1.73m*2 Normal >60.0 [facility] Comment on above: Result Comment: [facility]???s estimated glomerular filtration rate (eGFR) will [...] of individuals. Performed By: #### L [id number] ####[facility] [place] [address] Glucose [Mass/Vol] 102 mg/dL High 70-100 [facility] Comment on above: Performed By: #### L [id number] ####[facility] ([facility])[address] [place] [address] Potassium [Moles/Vol] 3.3 mmol/L Low 3.5-5.1 [facility] Comment on above: Performed By: #### L [id number] ####[facility] ([facility])[address] [place] [address] Sodium [Moles/Vol] 130 mmol/L Low 136-145 [facility] Comment on above: Performed By: #### L [id number] ####[facility] ([facility])[address] [place] [address] Urea nitrogen [Mass/Vol] 12 mg/dL Normal 7-25 [facility] Comment on above: Performed By: #### L [id number] ####[facility] ([facility])[address] [place] [address] UREA NITROGEN/CREATININE (MASS RATIO) IN SER/PLAS 29.3 Normal [facility] Comment on above: Performed By: #### L [id number] ####[facility] ([facility])[address] [place] [address] CBCon 11-03-2023 Erythrocyte distribution width (RBC) [Ratio] 16.6 % High 11.5-15.0 [facility] Comment on above: Performed By: #### L [id number] ####[facility] [place] [address] ERYTHROCYTE MEAN CORPUSCULAR HEMOGLOBIN CONCENTRATION (G/DL) BY AUTOMATED 31.6 g/dL Low 32.0-35.0 [facility] Comment on above: Performed By: #### L [id number] ####[facility] ([facility])[address] [place] [address] Hematocrit (Bld) [Volume fraction] 27.2 % Low 39.0-55.0 [facility] Comment on above: Performed By: #### L [id number] ####[facility] ([facility])[address] [place] [address] Hemoglobin (Bld) [Mass/Vol] 8.6 g/dL Low 13.0-17.0 [facility] Comment on above: Performed By: #### L [id number] ####[facility] ([facility])[address] [place] [address] MCH (RBC) [Entitic mass] 26.5 pg Low 27.0-33.0 [facility] Comment on above: Performed By: #### L [id number] ####[facility] ([facility])[address] [place] [address] MCV (RBC) [Entitic vol] 83.7 fL Normal 82.0-98.0 [facility] Comment on above: Performed By: #### L [id number] ####[facility] ([facility])[address] [place] [address] PLATELETS (10*3/UL) IN BLOOD AUTOMATED COUNT 157 10*3/uL Normal 150-400 [facility] Comment on above: Performed By: #### L [id number] ####[facility] ([facility])[address] [place] [address] RBC (Bld) [#/Vol] 3.25 10*6/uL Low 4.20-5.70 [facility] Comment on above: Performed By: #### L [id number] ####[facility] ([facility])[address] [place] [address] WBC (Bld) [#/Vol] 5.95 10*3/uL Normal 4.00-10.60 [facility] Comment on above: Performed By: #### L [id number] ####[facility] ([facility])[address] [place] [address] CONSULTon 11-03-2023 CONSULT Normal [facility] DIGOXIN LEVELon 11-03-2023 DIGOXIN (NG/ML) IN SER/PLAS 0.5 ng/mL Low 0.7-2 [facility] Comment on above: Performed By: #### L [id number] ####[facility] ([facility])[address] [place] [address] FERRITINon 11-03-2023 FERRITIN (NG/ML) IN SER/PLAS 79.0 ng/mL Normal 24.0-336.0 [facility] Comment on above: Performed By: #### L [id number] ####[facility] ([facility])[address] [place] [address] FOLATEon 11-03-2023 FOLATE (NG/ML) IN SER/PLAS 11.28 ng/mL Normal 6.6-1000 [facility] Comment on above: Performed By: #### L [id number] ####[facility] ([facility])[address] [place] [address] IRON AND TIBCon 11-03-2023 IRON (UG/DL) IN SER/PLAS 12 ug/dL Low 50-212 [facility] Comment on above: Performed By: #### L [id number] ####[facility] ([facility])[address] [place] [address] IRON BINDING CAPACITY (UG/DL) IN SER/PLAS 277 ug/dL Normal 250-450 [facility] Comment on above: Performed By: #### L [id number] ####[facility] ([facility])[address] [place] [address] IRON BINDING CAPACITY.UNSATURATED (UG/DL) IN SER/PLAS 265.0 ug/dL Normal 155.0-355.0 [facility] Comment on above: Performed By: #### L [id number] ####[facility] ([facility])[address] [place] [address] IRON SATURATION (%) IN SER/PLAS 4 % Low 20-50 [facility] Comment on above: Performed By: #### L [id number] ####[facility] ([facility])[address] [place] [address] NURSNOTEon 11-03-2023 NURSNOTE Striper asked night surgery/vascular MD if heparin gtt needs to be held at [address] Rubina PA-C said the heparin drip will be turned off 1 to 2 hours before the procedure due to heparin's short half-life. Normal [facility] NURSNOTE Normal [facility] OSMOLALITYon 11-03-2023 OSMOLALITY MEASURED 281 mOsm/kg Normal 275-295 [facility] Comment on above: Order Comment: Add o n Result Comment: Test Performed by [employer] [facility] [place] [address] - Released 11/03/2023 17:29 Performed By: #### L [id number] ####[employer] [id number] [place] [address] POCT GLUCOSE METER UNSOLICIT ED RESULTSon 11-03-2023 Glucose [Mass/Vol] 147 mg/dL High 70-105 [facility] Comment on above: Order Comment: Waive d Testing in the ED is performed under the ED CLIA certificate #[id number]. Result Comment: [email or web address] Performed By: #### L [id number] ####[facility] ([facility])[address] [place] [address] Glucose [Mass/Vol] 201 mg/dL High 70-105 [facility] Comment on above: Order Comment: Waive d Testing in the ED is performed under the ED CLIA certificate #[id number]. Result Comment: [email or web address] Performed By: #### L [id number] ####[facility] ([facility])[address] [place] [address] Glucose [Mass/Vol] 243 mg/dL High 70-105 [facility] Comment on above: Order Comment: Waive d Testing in the ED is performed under the ED CLIA certificate #[id number]. Result Comment: [email or web address] Performed By: #### L [id number] ####[facility] ([facility])[address] [place] [address] Glucose [Mass/Vol] 118 mg/dL High 70-105 [facility] Comment on above: Order Comment: Waive d Testing in the ED is performed under the ED CLIA certificate #[id number]. Result Comment: [email or web address] Performed By: #### L [id number] ####[facility] ([facility])[address] [place] [address] VITAMIN B12on 11-03-2023 Cobalamin (Vitamin B12) [Mass/Vol] 1448 pg/mL High 180-914 [facility] Comment on above: Result Comment: REFE RENCE RANGES:180-914 pg/mL Azbppo346-567 pg/mL Indeterminate<145 pg/mL Deficient Performed By: #### L [id number] ####[facility] ([facility])[address] [place] [address] 36on 11-02-2023 36 Spoke with Sonia Dey and Ijeoma. Asking about maintaining the line. Asked for them to flush until his appt. states they are seeing vascular today and they hope he is admitted for an amputation. [facility] 36 Spoke with Beth Dey Caring stated for the pt to maintain his line and flush it until his upcoming appt 11/09 [facility] CBC WITH AUTO DIFFERENTIALon 11-02-2023 Basophils (Bld) [#/Vol] 0.01 10*3/uL Normal 0.00-0.20 [facility] Comment on above: Performed By: #### L [id number] ####[facility] ([facility])[address] [place] [address] Basophils/100 WBC (Bld) 0.1 % Normal 0.0-1.0 [facility] Comment on above: Performed By: #### L [id number] ####[facility] ([facility])[address] [place] [address] Eosinophils (Bld) [#/Vol] 0.01 10*3/uL Normal 0.00-0.50 [facility] Comment on above: Performed By: #### L [id number] ####[facility] ([facility])[address] [place] [address] Eosinophils/100 WBC (Bld) 0.1 % Normal 0.0-6.0 [facility] Comment on above: Performed By: #### L [id number] ####[facility] ([facility])[address] [place] [address] Erythrocyte distribution width (RBC) [Ratio] 16.7 % High 11.5-15.0 [facility] Comment on above: Performed By: #### L [id number] ####[facility] ([facility])[address] [place] [address] ERYTHROCYTE MEAN CORPUSCULAR HEMOGLOBIN CONCENTRATION (G/DL) BY AUTOMATED 32.6 g/dL Normal 32.0-35.0 [facility] Comment on above: Performed By: #### L [id number] ####[facility] ([facility])[address] [place] [address] Hematocrit (Bld) [Volume fraction] 27.3 % Low 39.0-55.0 [facility] Comment on above: Performed By: #### L [id number] ####[facility] ([facility])[address] [place] [address] Hemoglobin (Bld) [Mass/Vol] 8.9 g/dL Low 13.0-17.0 [facility] Comment on above: Performed By: #### L [id number] ####[facility] ([facility])[address] [place] [address] Immature granulocytes (Bld) [#/Vol] 0.04 10*3/uL Normal 0.00-0.20 [facility] Comment on above: Performed By: #### L [id number] ####[facility] (BEAKER)[address] [place] [address] Immature granulocytes/100 WBC (Bld) 0.6 % Normal 0.0-1.0 [facility] Comment on above: Performed By: #### L [id number] ####[facility] (BEAKER)[address] [place] [address] Lymphocytes (Bld) [#/Vol] 0.32 10*3/uL Low 1.20-4.00 [facility] Comment on above: Performed By: #### L [id number] ####[facility] (BEAKER)[address] [place] [address] Lymphocytes/100 WBC (Bld) 4.6 % Low 20.0-45.0 [facility] Comment on above: Performed By: #### L [id number] ####[facility] (BEAKER)[address] [place] [address] MCH (RBC) [Entitic mass] 27.2 pg Normal 27.0-33.0 [facility] Comment on above: Performed By: #### L [id number] ####[facility] (BEAKER)[address] [place] [address] MCV (RBC) [Entitic vol] 83.5 fL Normal 82.0-98.0 [facility] Comment on above: Performed By: #### L [id number] ####[facility] (BEAKER)[address] [place] [address] Monocytes (Bld) [#/Vol] 0.96 10*3/uL Normal 0.10-1.00 [facility] Comment on above: Performed By: #### L [id number] ####[facility] (BEAKER)[address] [place] [address] Monocytes/100 WBC (Bld) 13.7 % High 5.0-12.0 [facility] Comment on above: Performed By: #### L [id number] ####[facility] (BEAKER)[address] [place] [address] Neutrophils (Bld) [#/Vol] 5.66 10*3/uL Normal 1.60-7.60 [facility] Comment on above: Performed By: #### L [id number] ####[facility] ([facility])[address] [address] Neutrophils/100 WBC (Bld) 80.9 % High 40.0-72.0 [facility] Comment on above: Performed By: #### L [id number] ####[facility] ([facility])[address] [address] NRBC (PER 100 WBCS) BY AUTOMATED COUNT 0.0 % Normal 0 [facility] Comment on above: Performed By: #### L [id number] ####[facility] ([facility])[address] [address] PLATELETS (10*3/UL) IN BLOOD AUTOMATED COUNT 165 10*3/uL Normal 150-400 [facility] Comment on above: Performed By: #### L [id number] ####[facility] ([facility])[address] [address] RBC (Bld) [#/Vol] 3.27 10*6/uL Low 4.20-5.70 [facility] Comment on above: Performed By: #### L [id number] ####[facility] ([facility])[address] [place] [address] WBC (Bld) [#/Vol] 7.00 10*3/uL Normal 4.00-10.60 [facility] Comment on above: Performed By: #### L [id number] ####[facility] [place] [address] COMPREHENSIVE METABOLIC PANE Sridhar 11-02-2023 Albumin [Mass/Vol] 3.1 g/dL Low 3.5-5.7 [facility] Comment on above: Performed By: #### L [id number] ####[facility] (BEAKER)[address] [place] [address] ALP [Catalytic activity/Vol] 159 U/L High 34-104 [facility] Comment on above: Performed By: #### L [id number] ####[facility] (BEAKER)[address] [place] [address] ALT [Catalytic activity/Vol] 157 U/L High 7-52 [facility] Comment on above: Performed By: #### L [id number] ####[facility] (BEAKER)[address] [place] [address] Anion gap [Moles/Vol] 8 mmol/L Normal 7-20 [facility] Comment on above: Performed By: #### L [id number] ####[facility] (BEAKER)[address] [place] [address] AST [Catalytic activity/Vol] 102 U/L High 13-39 [facility] Comment on above: Performed By: #### L [id number] ####[facility] (BEAKER)[address] [place] [address] Bilirubin [Mass/Vol] 0.5 mg/dL Normal 0.3-1.0 [facility] Comment on above: Performed By: #### L [id number] ####[facility] (BEAKER)[address] [place] [address] Calcium [Mass/Vol] 8.6 mg/dL Normal 8.6-10.3 [facility] Comment on above: Performed By: #### L [id number] ####[facility] (BEAKER)[address] [place] [address] Chloride [Moles/Vol] 93 mmol/L Low 98-107 [facility] Comment on above: Performed By: #### L [id number] ####[facility] (BEAKER)[address] [place] [address] CO2 [Moles/Vol] 30 mmol/L Normal 21-31 [facility] Comment on above: Performed By: #### L [id number] ####[facility] (BEAKER)[address] [place] [address] Creatinine [Mass/Vol] 0.49 mg/dL Low 0.70-1.30 [facility] Comment on above: Performed By: #### L [id number] ####[facility] ([facility])[address] [place] [address] GLOMERULAR FILTRATION RATE ML/MIN/1.73 SQ M.PREDICTED 106.4 mL/min/1.73m*2 Normal >60.0 [facility] Comment on above: Result Comment: [facility]???s estimated glomerular filtration rate (eGFR) will [...] of individuals. Performed By: #### L [id number] ####[facility] ([facility])[address] [place] [address] Glucose [Mass/Vol] 128 mg/dL High 70-100 [facility] Comment on above: Performed By: #### L [id number] ####[facility] ([facility])[address] [place] [address] Potassium [Moles/Vol] 3.5 mmol/L Normal 3.5-5.1 [facility] Comment on above: Performed By: #### L [id number] ####[facility] ([facility])[address] [place] [address] Protein [Mass/Vol] 6.5 g/dL Normal 6.0-8.3 [facility] Comment on above: Performed By: #### L [id number] ####[facility] ([facility])[address] [place] [address] Sodium [Moles/Vol] 127 mmol/L Low 136-145 [facility] Comment on above: Performed By: #### L [id number] ####[facility] ([facility])[address] [place] [address] Urea nitrogen [Mass/Vol] 11 mg/dL Normal 7-25 [facility] Comment on above: Performed By: #### L [id number] ####[facility] ([facility])[address] [place] [address] UREA NITROGEN/CREATININE (MASS RATIO) IN SER/PLAS 22.4 Normal [facility] Comment on above: Performed By: #### L [id number] ####[facility] ([facility])[address] [place] [address] Follow-Upon 11-02-2023 Follow-Up Normal [facility] HPon 11-02-2023 HP Normal [facility] MAGNESIUMon 11-02-2023 Magnesium [Mass/Vol] 1.9 mg/dL Normal 1.9-2.7 [facility] Comment on above: Performed By: #### L [id number] ####[facility] ([facility])[address] [place] [address] PHOSPHORUSon 11-02-2023 Magnesium [Mass/Vol] 3.2 mg/dL Normal 2.5-5.0 [facility] Comment on above: Performed By: #### L [id number] ####[facility] ([facility])[address] [place] [address] POCT GLUCOSE METER UNSOLICIT ED RESULTSon 11-02-2023 Glucose [Mass/Vol] 112 mg/dL High 70-105 [facility] Comment on above: Order Comment: Waive d Testing in the ED is performed under the ED CLIA certificate #[id number]. Result Comment: fbar aka Performed By: #### L [id number] ####[facility] ([facility])[address] [place] [address] Glucose [Mass/Vol] 159 mg/dL High 70-105 [facility] Comment on above: Order Comment: Waive d Testing in the ED is performed under the ED CLIA certificate #[id number]. Result Comment: [email or web address] Performed By: #### L [id number] ####[facility] (SUSAN)[address] [place] [address] 36on 11-01-2023 36 LM attempted to call patient no answer so left a message for patient to call us back we could see him today with javier at 1045/11 or tomorrow with chauncey at 130 Normal [facility] Outside Records Officeon Outside Records Office [phone]#[id number] FF Normal [facility] Orders Onlyon 10-27-2023 Orders Only Normal [facility] BLOOD UREA NITROGENon 2023 Urea nitrogen [Mass/Vol] 15 mg/dL Normal 5-27 [facility] Comment on above: Performed By: #### C ROSEMARY, 3094-0, POWER ELECTRONICS RESEARCH ENGINEER, 4091-3 #### [facility] ([id number]) [address] [place] [address] CBC AND AUTO DIFFon 10-26-19 24 ABSOLUTE BASOPHIL 0.0 X10E9/L Normal 0.0-0.2 [facility] Comment on above: Performed By: #### C ROSEMARY, 3094-0, POWER ELECTRONICS RESEARCH ENGINEER, 4091-3 #### [facility] ([id number]) [address] [place] [address] ABSOLUTE NEUTROPHIL 4.3 X10E9/L Normal 1.5-6.6 [facility] Comment on above: Performed By: #### C BCA, 3094-0, POWER ELECTRONICS RESEARCH ENGINEER, 4091-3 #### [facility] ([id number]) [address] [place] [address] Basophils/100 WBC (Bld) 0.4 % Normal [facility] Comment on above: Performed By: #### C BCA, 3094-0, POWER ELECTRONICS RESEARCH ENGINEER, 4091-3 #### [facility] ([id number]) [address] [place] [address] Eosinophils (Bld) [#/Vol] 0.0 10*3/uL Normal 0.0-0.4 [facility] Comment on above: Performed By: #### C ROSEMARY, 3094-0, POWER ELECTRONICS RESEARCH ENGINEER, 4091-12 #### [facility] ([id number]) [address] [place] [address] Eosinophils/100 WBC (Bld) 0.6 % Normal [facility] Comment on above: Performed By: #### C ROSEMARY, 309-0, POWER ELECTRONICS RESEARCH ENGINEER, 4091-12 #### [facility] ([id number]) [address] [place] [address] Erythrocyte distribution width (RBC) [Ratio] 18.5 % High 11.5-15.0 [facility] Comment on above: Performed By: #### Sammy RILEY, 3093-0, POWER ELECTRONICS RESEARCH ENGINEER, 4091-12 #### [facility] ([id number]) [address] [place] [address] Hematocrit (Bld) [Volume fraction] 28.0 % Low 39-49 [facility] Comment on above: Performed By: #### Sammy RILEY, 309-0, POWER ELECTRONICS RESEARCH ENGINEER, 4091-12 #### [facility] ([id number]) [address] [place] [address] Hemoglobin (Bld) [Mass/Vol] 9.1 g/dL Low 13.0-17.0 [facility] Comment on above: Performed By: #### Sammy RILEY, 3094-0, POWER ELECTRONICS RESEARCH ENGINEER, 4091-12 #### [facility] ([id number]) [address] [place] [address] Lymphocytes (Bld) [#/Vol] 0.3 10*3/uL Low 1.0-3.5 [facility] Comment on above: Performed By: #### Sammy RILEY, 3094-0, POWER ELECTRONICS RESEARCH ENGINEER, 4091-12 #### [facility] ([id number]) [address] [place] [address] Lymphocytes/100 WBC (Bld) 5.4 % Normal [facility] Comment on above: Performed By: #### Sammy RILEY, 3094-0, POWER ELECTRONICS RESEARCH ENGINEER, 4091-12 #### [facility] ([id number]) [address] [place] [address] MCH (RBC) [Entitic mass] 27.0 pg Normal 27-34 [facility] Comment on above: Performed By: #### Sammy RILEY, 3094-0, POWER ELECTRONICS RESEARCH ENGINEER, 4091-12 #### [facility] ([id number]) [address] [place] [address] MCHC (RBC) [Mass/Vol] 32.5 g/dL Normal 32-36 [facility] Comment on above: Performed By: #### Sammy RILEY, 3094-0, POWER ELECTRONICS RESEARCH ENGINEER, 4091-12 #### [facility] ([id number]) [address] [place] [address] MCV (RBC) [Entitic vol] 83 fL Normal 80-[address] [facility] Comment on above: Performed By: #### Sammy RILEY, 3094-0, POWER ELECTRONICS RESEARCH ENGINEER, 4091-12 #### [facility] ([id number]) [address] [place] [address] Monocytes (Bld) [#/Vol] 0.7 10*3/uL Normal 0-0.9 [facility] Comment on above: Performed By: #### Sammy RILEY, 3094-0, POWER ELECTRONICS RESEARCH ENGINEER, 4091-12 #### [facility] ([id number]) [address] [place] [address] Monocytes/100 WBC (Bld) 12.6 % Normal [facility] Comment on above: Performed By: #### Sammy RILEY, 3094-0, POWER ELECTRONICS RESEARCH ENGINEER, 4091-12 #### [facility] ([id number]) [address] [place] [address] [place] [address] Neutrophils/100 WBC (Bld) 81.0 % Normal [facility] Comment on above: Performed By: #### Sammy RILEY, 3094-0, POWER ELECTRONICS RESEARCH ENGINEER, 4091-12 #### [facility] ([id number]) [address] [place] [address] Platelet mean volume (Bld) [Entitic vol] 8.2 fL Normal 7-12 [facility] Comment on above: Performed By: #### Sammy RILEY, 3094-0, POWER ELECTRONICS RESEARCH ENGINEER, 4091-12 #### [facility] ([id number]) [address] [place] [address] Platelets (Bld) [#/Vol] 197 10*3/uL Normal 150-450 [facility] Comment on above: Performed By: #### Sammy RILEY, 3094-0, POWER ELECTRONICS RESEARCH ENGINEER, 4091-12 #### [facility] ([id number]) [address] [place] [address] RBC COUNT 3.37 X10E12/L Low 4.10-5.70 [facility] Comment on above: Performed By: #### Sammy RILEY, 3094-0, POWER ELECTRONICS RESEARCH ENGINEER, 4091-12 #### [facility] ([id number]) [address] [place] [address] WBC (Bld) [#/Vol] 5.3 10*3/uL Normal 4.0-11.0 [facility] Comment on above: Performed By: #### Sammy RILEY, 3094-0, POWER ELECTRONICS RESEARCH ENGINEER, 4091-12 #### [facility] ([id number]) [address] [place] [address] CREATININEon 10-26-2023 Creatinine [Mass/Vol] 0.35 mg/dL Low 0.70-1.20 [facility] Comment on above: Result Comment: METH OD TRACEABLE TO IDMS STANDARD Performed By: #### Sammy RILEY, 3094-0, POWER ELECTRONICS RESEARCH ENGINEER, 4092-3 #### [facility] ([id number]) [address] [place] [address] eGFR (CKD-EPI) NON-RACE DEPENDENT >90 Normal >59 [facility] Comment on above: Result Comment: Reported eGFR is based on the CKD-EPI 2020 equation that does not use a race coefficient. Performed By: #### C ROSEMARY, 309-0, POWER ELECTRONICS RESEARCH ENGINEER, 4091-3 #### [facility] ([id number]) [address] [place] [address]014 CRP [Mass/Vol]on 10-26-2023 C REACTIVE PROTEIN 4.9 mg/dL High 0.000-0.744 [facility] Comment on above: Performed By: #### C ROSEMARY, 3093-0, POWER ELECTRONICS RESEARCH ENGINEER, 4091-3 #### [facility] ([id number]) [address] [place] [address] 14907 Follow-Upon 10-26-2023 Follow-Up Normal [facility] Vancomycin trough [Mass/Vol] on 10-26-2023 VANCOMYCIN TROUGH 12.4 ug/mL Normal 5.0-20.0 [facility] Comment on above: Performed By: #### C ROSEMARY, 3093-0, POWER ELECTRONICS RESEARCH ENGINEER, 4091-3 #### [facility] ([id number]) [address] [place] [address] 36on 10-20-[address] [facility] an d Verna is adding weekly CRP. Normal [facility] BLOOD UREA NITROGENon 2023 Urea nitrogen [Mass/Vol] 10 mg/dL Normal 5-27 [facility] Comment on above: Performed By: #### C ROSEMARY, 309-0, POWER ELECTRONICS RESEARCH ENGINEER, 4091-3 #### [facility] ([id number]) [address] [place] [address] 61903 CBC AND AUTO DIFFon 10-19-19 24 ABSOLUTE BASOPHIL 0.0 X10E9/L Normal 0.0-0.2 [facility] Comment on above: Performed By: #### C ROSEMARY, 3093-0, POWER ELECTRONICS RESEARCH ENGINEER, 4091-12 #### [facility] ([id number]) [address] [place] [address] ABSOLUTE NEUTROPHIL 3.1 X10E9/L Normal 1.5-6.6 [facility] Comment on above: Performed By: #### Sammy RILEY, 3093-0, POWER ELECTRONICS RESEARCH ENGINEER, 4091-12 #### [facility] ([id number]) [address] [place] [address] 29525 Basophils/100 WBC (Bld) 0.4 % Normal [facility] Comment on above: Performed By: #### Sammy RILEY, 0, POWER ELECTRONICS RESEARCH ENGINEER, 4091-12 #### [facility] ([id number]) [address] [place] [address]70 Eosinophils (Bld) [#/Vol] 0.0 10*3/uL Normal 0.0-0.4 [facility] Comment on above: Performed By: #### Sammy RILEY, 0, POWER ELECTRONICS RESEARCH ENGINEER, 4091-12 #### [facility] ([id number]) [address] [place] [address] 80389 Eosinophils/100 WBC (Bld) 0.8 % Normal [facility] Comment on above: Performed By: #### Sammy RILEY, 0, POWER ELECTRONICS RESEARCH ENGINEER, 4091-12 #### [facility] ([id number]) [address] [place] [address] 55552 Erythrocyte distribution width (RBC) [Ratio] 17.7 % High 11.5-15.0 [facility] Comment on above: Performed By: #### Sammy RILEY, 309-0, POWER ELECTRONICS RESEARCH ENGINEER, 4091-12 #### [facility] ([id number]) [address] [place] [address]39 Hematocrit (Bld) [Volume fraction] 27.3 % Low 39-49 [facility] Comment on above: Performed By: #### Sammy RILEY, 309-0, POWER ELECTRONICS RESEARCH ENGINEER, 4091-12 #### [facility] ([id number]) [address] [place] [address]3333 Hemoglobin (Bld) [Mass/Vol] 8.8 g/dL Low 13.0-17.0 [facility] Comment on above: Performed By: #### Sammy RILEY, 309-0, POWER ELECTRONICS RESEARCH ENGINEER, 4091-12 #### [facility] ([id number]) [address] [place] [address] 34224 Lymphocytes (Bld) [#/Vol] 0.2 10*3/uL Low 1.0-3.5 [facility] Comment on above: Performed By: #### Sammy RILEY, 3093-0, POWER ELECTRONICS RESEARCH ENGINEER, 4091-12 #### [facility] ([id number]) [address] [place] [address] 12532 Lymphocytes/100 WBC (Bld) 6.2 % Normal [facility] Comment on above: Performed By: #### Sammy RILEY, 309-0, POWER ELECTRONICS RESEARCH ENGINEER, 4091-12 #### [facility] ([id number]) [address] [place] [address] 97180 MCH (RBC) [Entitic mass] 27.1 pg Normal 27-34 [facility] Comment on above: Performed By: #### Sammy RILEY, 309-0, POWER ELECTRONICS RESEARCH ENGINEER, 4091-12 #### [facility] ([id number]) [address] [place] [address] 26655 MCHC (RBC) [Mass/Vol] 32.2 g/dL Normal 32-36 [facility] Comment on above: Performed By: #### Sammy RILEY, 3094-0, POWER ELECTRONICS RESEARCH ENGINEER, 4091-12 #### [facility] ([id number]) [address] [place] [address] 44974 MCV (RBC) [Entitic vol] 84 fL Normal 80-[address] [facility] Comment on above: Performed By: #### Sammy RILEY, 3094-0, POWER ELECTRONICS RESEARCH ENGINEER, 4091-12 #### [facility] ([id number]) [address] [place] [address] 90958 Monocytes (Bld) [#/Vol] 0.5 10*3/uL Normal 0-0.9 [facility] Comment on above: Performed By: #### Sammy RILEY, 3094-0, POWER ELECTRONICS RESEARCH ENGINEER, 4091-12 #### [facility] ([id number]) [address] [place] [address] 95028 Monocytes/100 WBC (Bld) 11.9 % Normal [facility] Comment on above: Performed By: #### Sammy RILEY, 3094-0, POWER ELECTRONICS RESEARCH ENGINEER, 4091-12 #### [facility] ([id number]) [address] [place] [address] 09601 Neutrophils/100 WBC (Bld) 80.7 % Normal [facility] Comment on above: Performed By: #### Sammy RILEY, 309-0, POWER ELECTRONICS RESEARCH ENGINEER, 4091-12 #### [facility] ([id number]) [address] [place] [address] 00070 Platelet mean volume (Bld) [Entitic vol] 9.2 fL Normal 7-12 [facility] Comment on above: Performed By: #### Sammy RILEY, 3094-0, POWER ELECTRONICS RESEARCH ENGINEER, 4091-12 #### [facility] ([id number]) [address] [place] [address] 02093 Platelets (Bld) [#/Vol] 109 10*3/uL Low 150-450 [facility] Comment on above: Performed By: #### Sammy RILEY, 3094-0, POWER ELECTRONICS RESEARCH ENGINEER, 4091-12 #### [facility] ([id number]) [address] [place] [address] 25773 RBC COUNT 3.25 X10E12/L Low 4.10-5.70 [facility] Comment on above: Performed By: #### C ROSEMARY, 3094-0, POWER ELECTRONICS RESEARCH ENGINEER, 4091-3 #### [facility] ([id number]) [address] [place] [address] 21284 WBC (Bld) [#/Vol] 3.8 10*3/uL Low 4.0-11.0 [facility] Comment on above: Performed By: #### C ROSEMARY, 3094-0, POWER ELECTRONICS RESEARCH ENGINEER, 4091-3 #### [facility] ([id number]) [address] [place] [address] 68420 CREATININEon 10-19-2023 Creatinine [Mass/Vol] 0.40 mg/dL Low 0.70-1.20 [facility] Comment on above: Result Comment: METH OD TRACEABLE TO IDMS STANDARD Performed By: #### C ROSEMARY, 309-0, POWER ELECTRONICS RESEARCH ENGINEER, 3 #### [facility] ([id number]) [address] [place] [address] 65898 eGFR (CKD-EPI) NON-RACE DEPENDENT >90 Normal >59 [facility] Comment on above: Result Comment: Reported eGFR is based on the CKD-EPI 2020 equation that does not use a race coefficient. Performed By: #### C ROSEMARY, 309-0, POWER ELECTRONICS RESEARCH ENGINEER, 3 #### [facility] ([id number]) [address] [place] [address] 11852 Vancomycin trough [Mass/Vol] on 10-19-2023 VANCOMYCIN TROUGH 12.9 ug/mL Normal 5.0-20.0 [facility] Comment on above: Performed By: #### Sammy RILEY, 3094-0, POWER ELECTRONICS RESEARCH ENGINEER, 3 #### [facility] ([id number]) [address] [place] [address] 40051 Follow-Upon 10-17-2023 Follow-Up Normal [facility] 36on 10-13-2023 36 Yes, I agree with patient going to ER. He is currently at [facility] in [place]. Thanks!. [facility] 36 Spoke with pt yesterday lab called about a critical lab on Hemoglobin stated to have the pt go to the ER as soon as possible. 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 I called pt and spoke with his Ijeoma and stated pt needs to go to the ER alessandra. His stated they will go to [facility] in [facility] BLOOD UREA NITROGENon 2023 Urea nitrogen [Mass/Vol] 11 mg/dL Normal 5-27 [facility] Comment on above: Performed By: #### 3 094-0, POWER ELECTRONICS RESEARCH ENGINEER, 2-3, CBCA #### [facility] ([id number]) [address] [place] [id number] CBC AND AUTO DIFFon 10-12-19 24 ABSOLUTE BASOPHIL 0.0 X10E9/L Normal 0.0-0.2 [facility] Comment on above: Performed By: #### C BCA, 3094-0, POWER ELECTRONICS RESEARCH ENGINEER, 4091-3 #### [facility] ([id number]) [address] [place] [id number] ABSOLUTE NEUTROPHIL 1.8 X10E9/L Normal 1.5-6.6 [facility] Comment on above: Performed By: #### C BCA, 3094-0, POWER ELECTRONICS RESEARCH ENGINEER, 4091-3 #### [facility] ([id number]) [address] [place] [id number] Basophils/100 WBC (Bld) 0.6 % Normal P [facility] Comment on above: Performed By: #### C BCA, 3094-0, POWER ELECTRONICS RESEARCH ENGINEER, 2-3 #### [facility] ([id number]) [address] [place] [id number] Eosinophils (Bld) [#/Vol] 0.0 10*3/uL Normal 0.0-0.4 [facility] Comment on above: Performed By: #### Sammy RILEY, 309-0, POWER ELECTRONICS RESEARCH ENGINEER, 4091-12 #### [facility] ([id number]) [address] [place] [address] [id number] Eosinophils/100 WBC (Bld) 0.4 % Normal [facility] Comment on above: Performed By: #### Sammy RILEY, 309-0, POWER ELECTRONICS RESEARCH ENGINEER, 4091-12 #### [facility] ([id number]) [address] [place] [address] 67123 Erythrocyte distribution width (RBC) [Ratio] 18.0 % High 11.5-15.0 [facility] Comment on above: Performed By: #### Sammy RILEY, 0, POWER ELECTRONICS RESEARCH ENGINEER, 4091-12 #### [facility] ([id number]) [address] [place] [address] 52774 Hematocrit (Bld) [Volume fraction] 19.0 % Low 39-49 [facility] Comment on above: Performed By: #### Sammy RILEY, 3090, POWER ELECTRONICS RESEARCH ENGINEER, 4091-12 #### [facility] ([id number]) [address] [place] [address] 01831 Hemoglobin (Bld) [Mass/Vol] 6.1 g/dL Critically low 13.0-17.0 [facility] Comment on above: Performed By: #### Sammy RILEY, 309-0, POWER ELECTRONICS RESEARCH ENGINEER, 4091-12 #### [facility] ([id number]) [address] [place] [address] 69692 Lymphocytes (Bld) [#/Vol] 0.1 10*3/uL Low 1.0-3.5 [facility] Comment on above: Performed By: #### Sammy RILEY, 309-0, POWER ELECTRONICS RESEARCH ENGINEER, 4091-12 #### [facility] ([id number]) [address] [place] [address] 13513 Lymphocytes/100 WBC (Bld) 5.9 % Normal [facility] Comment on above: Performed By: #### Sammy RILEY, 3094-0, POWER ELECTRONICS RESEARCH ENGINEER, 4091-12 #### [facility] ([id number]) [address] [place] [address] 80064 MCH (RBC) [Entitic mass] 26.8 pg Low 27-34 [facility] Comment on above: Performed By: #### Sammy RILEY, 3094-0, POWER ELECTRONICS RESEARCH ENGINEER, 4091-12 #### [facility] ([id number]) [address] [place] [address] 06047 MCHC (RBC) [Mass/Vol] 32.1 g/dL Normal 32-36 [facility] Comment on above: Performed By: #### Sammy RILEY, 309-0, POWER ELECTRONICS RESEARCH ENGINEER, 4091-12 #### [facility] ([id number]) [address] [place] [address] 72542 MCV (RBC) [Entitic vol] 83 fL Normal 80-100 [facility] Comment on above: Performed By: #### Sammy RILEY, 3094-0, POWER ELECTRONICS RESEARCH ENGINEER, 4091-12 #### [facility] ([id number]) [address] [place] [address] 71651 Monocytes (Bld) [#/Vol] 0.4 10*3/uL Normal 0-0.9 [facility] Comment on above: Performed By: #### Sammy RILEY, 3094-0, POWER ELECTRONICS RESEARCH ENGINEER, 4091-12 #### [facility] ([id number]) [address] [place] [address] 72312 Monocytes/100 WBC (Bld) 15.7 % Normal [facility] Comment on above: Performed By: #### Sammy RILEY, 3094-0, POWER ELECTRONICS RESEARCH ENGINEER, 4091-12 #### [facility] ([id number]) [address] [place] [address] 77477 Neutrophils/100 WBC (Bld) 77.4 % Normal [facility] Comment on above: Performed By: #### Sammy RILEY, 3094-0, POWER ELECTRONICS RESEARCH ENGINEER, 4091-12 #### [facility] ([id number]) [address] [place] [address] 71419 Platelet mean volume (Bld) [Entitic vol] 9.0 fL Normal 7-12 [facility] Comment on above: Performed By: #### Sammy RILEY, 3094-0, POWER ELECTRONICS RESEARCH ENGINEER, 4091-12 #### [facility] ([id number]) [address] [place] [address] 71268 Platelets (Bld) [#/Vol] 94 10*3/uL Low 150-450 [facility] Comment on above: Performed By: #### Sammy RILEY, 3094-0, POWER ELECTRONICS RESEARCH ENGINEER, 4091-12 #### [facility] ([id number]) [address] [place] [address] 62454 RBC COUNT 2.29 X10E12/L Low 4.10-5.70 [facility] Comment on above: Performed By: #### Sammy RILEY, 3094-0, POWER ELECTRONICS RESEARCH ENGINEER, 4091-12 #### [facility] ([id number]) [address] [place] [address] 85393 WBC (Bld) [#/Vol] 2.4 10*3/uL Low 4.0-11.0 [facility] Comment on above: Performed By: #### Sammy RILEY, 3094-0, POWER ELECTRONICS RESEARCH ENGINEER, 4091-12 #### [facility] ([id number]) [address] [place] [address] 63372 Eosinophils/100 WBC (Bld) 0.9 % Normal [facility] Comment on above: Performed By: #### Sammy RILEY, 3094-0, POWER ELECTRONICS RESEARCH ENGINEER, 4091-12 #### [facility] ([id number]) [address] [place] [address] 83373 Erythrocyte distribution width (RBC) [Ratio] 17.6 % High 11.5-15.0 [facility] Comment on above: Performed By: #### Sammy RILEY, 3094-0, POWER ELECTRONICS RESEARCH ENGINEER, 4091-12 #### [facility] ([id number]) [address] [place] [address] 10033 Hematocrit (Bld) [Volume fraction] 19.5 % Low 39-49 [facility] Comment on above: Performed By: #### Sammy RILEY, 309-0, POWER ELECTRONICS RESEARCH ENGINEER, 4091-12 #### [facility] ([id number]) [address] [place] [address] 53357 Hemoglobin (Bld) [Mass/Vol] 6.3 g/dL Critically low 13.0-17.0 [facility] Comment on above: Performed By: #### Sammy RILEY, 309-0, POWER ELECTRONICS RESEARCH ENGINEER, 4091-12 #### [facility] ([id number]) [address] [place] [address] 23898 Lymphocytes/100 WBC (Bld) 3.8 % Normal [facility] Comment on above: Performed By: #### Sammy RILEY, 309-0, POWER ELECTRONICS RESEARCH ENGINEER, 4091-12 #### [facility] ([id number]) [address] [place] [address] 44857 MCH (RBC) [Entitic mass] 26.6 pg Low 27-34 [facility] Comment on above: Performed By: #### Sammy RILEY, 3094-0, POWER ELECTRONICS RESEARCH ENGINEER, 4091-12 #### [facility] ([id number]) [address] [place] [address] 05545 Monocytes (Bld) [#/Vol] 0.2 10*3/uL Normal 0-0.9 [facility] Comment on above: Performed By: #### Sammy RILEY, 3094-0, POWER ELECTRONICS RESEARCH ENGINEER, 4091-12 #### [facility] ([id number]) [address] [place] [address] 19139 Monocytes/100 WBC (Bld) 10.4 % Normal [facility] Comment on above: Performed By: #### Sammy RILEY, 3094-0, POWER ELECTRONICS RESEARCH ENGINEER, 4091- #### [facility] ([id number]) [address] [place] [address] 62054 Neutrophils (Bld) [#/Vol] 1.7 10*3/uL Normal 1.5-6.6 [facility] Comment on above: Performed By: #### Sammy RILEY, 3094-0, POWER ELECTRONICS RESEARCH ENGINEER, 4091-12 #### [facility] ([id number]) [address] [place] [address] 10999 OVALOCYTE 2+ Abnormal NONE [facility] Comment on above: Performed By: #### Sammy RILEY, 309-0, POWER ELECTRONICS RESEARCH ENGINEER, 4091-12 #### [facility] ([id number]) [address] [place] [address] 25006 Platelet mean volume (Bld) [Entitic vol] 8.8 fL Normal 7-12 [facility] Comment on above: Performed By: #### Sammy RILEY, 3094-0, POWER ELECTRONICS RESEARCH ENGINEER, 4091-12 #### [facility] ([id number]) [address] [place] [address] 48741 Platelets (Bld) [#/Vol] 87 10*3/uL Low 150-[address] [facility] Comment on above: Performed By: #### Sammy RILEY, 3094-0, POWER ELECTRONICS RESEARCH ENGINEER, 4091- #### [facility] ([id number]) [address] [place] [address] 81911 RBC COUNT 2.35 X10E12/L Low 4.10-5.70 [facility] Comment on above: Performed By: #### Sammy RILEY, 3094-0, POWER ELECTRONICS RESEARCH ENGINEER, 4091- #### [facility] ([id number]) [address] [place] [address] 32839 SEG NEUTROPHIL 84.9 % Normal [facility] Comment on above: Performed By: #### C BCA, 3094-0, POWER ELECTRONICS RESEARCH ENGINEER, 4091-12 #### [facility] ([id number]) [address] [place] [address] 43998 TEARDROP 1+ Abnormal NONE [facility] Comment on above: Performed By: #### C BCA, 3094-0, POWER ELECTRONICS RESEARCH ENGINEER, 4091- #### [facility] ([id number]) [address] [place] [address] 12298 WBC (Bld) [#/Vol] 2.0 10*3/uL Low 4.0-11.0 [facility] Comment on above: Performed By: #### C BCA, 3094-0, POWER ELECTRONICS RESEARCH ENGINEER, 4091-12 #### [facility] ([id number]) [address] [place] [address] 25884 COMPREHENSIVE METABOLIC PANE Sridhar 10-12-2023 Albumin [Mass/Vol] 2.6 g/dL Low 3.2-5.3 [facility] Comment on above: Performed By: #### C BCA, 3094-0, POWER ELECTRONICS RESEARCH ENGINEER, 4091-12 #### [facility] ([id number]) [address] [place] [address] 22385 ALP [Catalytic activity/Vol] 88 U/L Normal 39-130 [facility] Comment on above: Performed By: #### C BCA, 3094-0, POWER ELECTRONICS RESEARCH ENGINEER, 4091-12 #### [facility] ([id number]) [address] [place] [address] 13506 ALT [Catalytic activity/Vol] 45 U/L High 0-40 [facility] Comment on above: Performed By: #### C BCA, 3094-0, POWER ELECTRONICS RESEARCH ENGINEER, 4091-12 #### [facility] ([id number]) [address] [place] [address] Anion gap [Moles/Vol] 6 mmol/L Normal 5-15 [facility] Comment on above: Performed By: #### C BCA, 3094-0, POWER ELECTRONICS RESEARCH ENGINEER, 4091-12 #### [facility] ([id number]) [address] [place] [address] 32576 AST [Catalytic activity/Vol] 54 U/L High 0-41 [facility] Comment on above: Performed By: #### C BCA, 3094-0, POWER ELECTRONICS RESEARCH ENGINEER, 4091-12 #### [facility] ([id number]) [address] [place] [address] 63170 Bilirubin [Mass/Vol] 0.5 mg/dL Normal 0.3-1.2 [facility] Comment on above: Performed By: #### Sammy BCA, 3094-0, POWER ELECTRONICS RESEARCH ENGINEER, 4091-12 #### [facility] ([id number]) [address] [place] [address] 45649 Calcium [Mass/Vol] 7.7 mg/dL Low 8.5-10.5 [facility] Comment on above: Performed By: #### Sammy BCA, 3094-0, POWER ELECTRONICS RESEARCH ENGINEER, 4091-12 #### [facility] ([id number]) [address] [place] [address] 55754 Chloride [Moles/Vol] 100 mmol/L Normal 98-109 [facility] Comment on above: Performed By: #### C BCA, 3094-0, POWER ELECTRONICS RESEARCH ENGINEER, 4091-12 #### [facility] ([id number]) [address] [place] [address] 36983 CO2 [Moles/Vol] 25 mmol/L Normal 22-32 [facility] Comment on above: Performed By: #### C BCA, 3094-0, POWER ELECTRONICS RESEARCH ENGINEER, 4091- #### [facility] ([id number]) [address] [place] [address] 64050 Creatinine [Mass/Vol] 0.39 mg/dL Low 0.70-1.20 [facility] Comment on above: Result Comment: METH OD TRACEABLE TO IDMS STANDARD Performed By: #### C BCA, 3094-0, POWER ELECTRONICS RESEARCH ENGINEER, 4091-3 #### [facility] ([id number]) [address] [place] [address] 48820 eGFR (CKD-EPI) NON-RACE DEPENDENT >90 Normal >59 [facility] Comment on above: Result Comment: Reported eGFR is based on the CKD-EPI 2020 equation that does not use a race coefficient. Performed By: #### C BCA, 3094-0, POWER ELECTRONICS RESEARCH ENGINEER, 4091- #### [facility] ([id number]) [address] [place] [address] 48091 Performed By: #### 3 094-0, POWER ELECTRONICS RESEARCH ENGINEER, 4091-3, CBCA #### [facility] ([id number]) [address] [place] [address] 77732 Glucose [Mass/Vol] 142 mg/dL High 65-99 [facility] Comment on above: Performed By: #### C BCA, 3094-0, POWER ELECTRONICS RESEARCH ENGINEER, 4091-12 #### [facility] ([id number]) [address] [place] [address] 20280 Potassium [Moles/Vol] 3.5 mmol/L Normal 3.5-5.0 [facility] Comment on above: Performed By: #### C BCA, 3094-0, POWER ELECTRONICS RESEARCH ENGINEER, 4091- #### [facility] ([id number]) [address] [place] [address] 83917 Protein [Mass/Vol] 6.1 g/dL Normal 6.0-8.0 [facility] Comment on above: Performed By: #### C BCA, 3094-0, POWER ELECTRONICS RESEARCH ENGINEER, 4091-3 #### [facility] ([id number]) [address] [place] [address] 48717 Sodium [Moles/Vol] 131 mmol/L Low 134-146 [facility] Comment on above: Performed By: #### C ROSEMARY, 3093-0, POWER ELECTRONICS RESEARCH ENGINEER, 3 #### [facility] ([id number]) [address] [place] [address] 19778 Urea nitrogen [Mass/Vol] 12 mg/dL Normal 5-27 [facility] Comment on above: Performed By: #### C ROSEMARY, 3093-0, POWER ELECTRONICS RESEARCH ENGINEER, 4091-12 #### [facility] ([id number]) [address] [place] [address] 18573 CREATININEon 10-12-2023 Creatinine [Mass/Vol] 0.47 mg/dL Low 0.70-1.20 [facility] Comment on above: Result Comment: METH OD TRACEABLE TO IDMS STANDARD Performed By: #### 3 094-0, POWER ELECTRONICS RESEARCH ENGINEER, 4091-12, CBCA #### [facility] ([id number]) [address] [place] [address] 45291 HEMOGLOBINon 10-12-2023 Hemoglobin (Bld) [Mass/Vol] 8.9 g/dL Low 13.0-17.0 [facility] Comment on above: Performed By: #### C ROSEMARY, 3093-0, POWER ELECTRONICS RESEARCH ENGINEER, 4091-12 #### [facility] ([id number]) [address] [place] [address] 29712 Hematocrit Auto (Bld) [Volum e fraction]on 10-12-2023 Hematocrit (Bld) [Volume fraction] 27.0 % Low 39-49 [facility] Comment on above: Performed By: #### C ROSEMARY, 309-0, POWER ELECTRONICS RESEARCH ENGINEER, 4091-12 #### [facility] ([id number]) [address] [place] [address] 02392 Vancomycin trough [Mass/Vol] on 10-12-2023 VANCOMYCIN TROUGH 11.1 ug/mL Normal 5.0-20.0 [facility] Comment on above: Performed By: #### C BCA, 3094-0, POWER ELECTRONICS RESEARCH ENGINEER, 4092-3 #### [facility] ([id number]) [address] [place] [address] 99445 BLOOD UREA NITROGENon 2022 Urea nitrogen [Mass/Vol] 11 mg/dL Normal -27 [facility] Comment on above: Performed By: #### 3 094-0, POWER ELECTRONICS RESEARCH ENGINEER, 4091-3, CBCA #### [facility] ([id number]) [address] [place] [address] 15646 CBC AND AUTO DIFFon 10-05-20 ABSOLUTE BASOPHIL 0.0 X10E9/L Normal 0.0-0.2 [facility] Comment on above: Performed By: #### 3 094-0, POWER ELECTRONICS RESEARCH ENGINEER, 4091-3, CBCA #### [facility] ([id number]) [address] [place] [address] 99337 ABSOLUTE NEUTROPHIL 1.5 X10E9/L Normal 1.5-6.6 [facility] Comment on above: Performed By: #### 3 094-0, POWER ELECTRONICS RESEARCH ENGINEER, 3, CBCA #### [facility] ([id number]) [address] [place] [address] 78504 Basophils/100 WBC (Bld) 1.5 % Normal [facility] Comment on above: Performed By: #### 3 094-0, POWER ELECTRONICS RESEARCH ENGINEER, 4091-3, CBCA #### [facility] ([id number]) [address] [place] [address] 07873 Eosinophils (Bld) [#/Vol] 0.0 10*3/uL Normal 0.0-0.4 [facility] Comment on above: Performed By: #### 3 094-0, POWER ELECTRONICS RESEARCH ENGINEER, 4091-3, CBCA #### [facility] ([id number]) [address] [place] [address] 49263 Eosinophils/100 WBC (Bld) 1.7 % Normal [facility] Comment on above: Performed By: #### 3 094-0, POWER ELECTRONICS RESEARCH ENGINEER, 4091-12, CBCA #### [facility] ([id number]) [address] [place] [address] 51464 Erythrocyte distribution width (RBC) [Ratio] 18.5 % High 11.5-15.0 [facility] Comment on above: Performed By: #### 3 094-0, POWER ELECTRONICS RESEARCH ENGINEER, 4091-12, CBCA #### [facility] ([id number]) [address] [place] [address] 59528 Hematocrit (Bld) [Volume fraction] 20.9 % Low 39-49 [facility] Comment on above: Performed By: #### 3 094-0, POWER ELECTRONICS RESEARCH ENGINEER, 4091-12, CBCA #### [facility] ([id number]) [address] [place] [address] 55641 Hemoglobin (Bld) [Mass/Vol] 6.7 g/dL Critically low 13.0-17.0 [facility] Comment on above: Performed By: #### 3 094-0, POWER ELECTRONICS RESEARCH ENGINEER, 4091-12, CBCA #### [facility] ([id number]) [address] [place] [address] 83773 Lymphocytes (Bld) [#/Vol] 0.2 10*3/uL Low 1.0-3.5 [facility] Comment on above: Performed By: #### 3 094-0, POWER ELECTRONICS RESEARCH ENGINEER, 4091-12, CBCA #### [facility] ([id number]) [address] [place] [address] 85660 Lymphocytes/100 WBC (Bld) 9.7 % Normal [facility] Comment on above: Performed By: #### 3 094-0, POWER ELECTRONICS RESEARCH ENGINEER, 4091-12, CBCA #### [facility] ([id number]) [address] [place] [address] 83006 MCH (RBC) [Entitic mass] 27.6 pg Normal 27-34 [facility] Comment on above: Performed By: #### 3 094-0, POWER ELECTRONICS RESEARCH ENGINEER, 4091-3, CBCA #### [facility] ([id number]) [address] [place] [address] 49570 MCHC (RBC) [Mass/Vol] 32.2 g/dL Normal 32-36 [facility] Comment on above: Performed By: #### 3 094-0, POWER ELECTRONICS RESEARCH ENGINEER, 4091-3, CBCA #### [facility] ([id number]) [address] [place] [address] 36551 MCV (RBC) [Entitic vol] 86 fL Normal 80-[address] [facility] Comment on above: Performed By: #### 3 094-0, POWER ELECTRONICS RESEARCH ENGINEER, 4091-12, CBCA #### [facility] ([id number]) [address] [place] [address] 36290 Monocytes (Bld) [#/Vol] 0.3 10*3/uL Normal 0-0.9 [facility] Comment on above: Performed By: #### 3 094-0, POWER ELECTRONICS RESEARCH ENGINEER, 4091-12, CBCA #### [facility] ([id number]) [address] [place] [address] 66626 Monocytes/100 WBC (Bld) 16.0 % Normal [facility] Comment on above: Performed By: #### 3 094-0, POWER ELECTRONICS RESEARCH ENGINEER, 4091-, CBCA #### [facility] ([id number]) [address] [place] [address] 66860 Neutrophils/100 WBC (Bld) 71.1 % Normal [facility] Comment on above: Performed By: #### 3 094-0, POWER ELECTRONICS RESEARCH ENGINEER, 4091-3, CBCA #### [facility] ([id number]) [address] [place] [address] 18963 Platelet mean volume (Bld) [Entitic vol] 9.4 fL Normal 7-12 [facility] Comment on above: Performed By: #### 3 094-0, POWER ELECTRONICS RESEARCH ENGINEER, 4091-3, CBCA #### [facility] ([id number]) [address] [place] [address] 23473 Platelets (Bld) [#/Vol] 101 10*3/uL Low 150-450 [facility] Comment on above: Performed By: #### 3 094-0, POWER ELECTRONICS RESEARCH ENGINEER, 4091-3, CBCA #### [facility] ([id number]) [address] [place] [address] 29233 RBC COUNT 2.43 X10E12/L Low 4.10-5.70 [facility] Comment on above: Performed By: #### 3 094-0, POWER ELECTRONICS RESEARCH ENGINEER, 4091-12, CBCA #### [facility] ([id number]) [address] [place] [address] 42478 WBC (Bld) [#/Vol] 2.1 10*3/uL Low 4.0-11.0 [facility] Comment on above: Performed By: #### 3 094-0, POWER ELECTRONICS RESEARCH ENGINEER, 4091-12, CBCA #### [facility] ([id number]) [address] [place] [address] 81667 CREATININEon 10-05-2023 Creatinine [Mass/Vol] 0.42 mg/dL Low 0.70-1.20 [facility] Comment on above: Result Comment: METH OD TRACEABLE TO IDMS STANDARD Performed By: #### 3 094-0, POWER ELECTRONICS RESEARCH ENGINEER, 4091-12, CBCA #### [facility] ([id number]) [address] [place] [address] 46079 eGFR (CKD-EPI) NON-RACE DEPENDENT >90 Normal >59 [facility] Comment on above: Result Comment: Reported eGFR is based on the CKD-EPI 2020 equation that does not use a race coefficient. Performed By: #### 3 094-0, POWER ELECTRONICS RESEARCH ENGINEER, 4091-3, CBCA #### [facility] ([id number]) [address] [place] [address] 89489 Follow-Upon 10-05-2023 Follow-Up Normal [facility] Telephoneon 10-05-2023 Telephone Normal [facility] Vancomycin trough [Mass/Vol] on 10-05-2023 VANCOMYCIN TROUGH 14.7 ug/mL Normal 5.0-20.0 [facility] Comment on above: Performed By: #### 3 094-0, POWER ELECTRONICS RESEARCH ENGINEER, 4091-3, CBCA #### [facility] ([id number]) [address] [place] [address] 25985 36on 09-30-2023 36 No Opat received. Clare crawford faxed to us showing stable results. Normal [facility] BLOOD UREA NITROGENon 2022 Urea nitrogen [Mass/Vol] 12 mg/dL Normal 03-05 [facility] Comment on above: Performed By: #### C BCA, 3094-0, POWER ELECTRONICS RESEARCH ENGINEER, 4091-12 #### [facility] ([id number]) [address] [place] [address] 85592 CBC AND AUTO DIFFon 09-28-20 ABSOLUTE BASOPHIL 0.0 X10E9/L Normal 0.0-0.2 [facility] Comment on above: Performed By: #### C BCA, 3094-0, POWER ELECTRONICS RESEARCH ENGINEER, 4091-3 #### [facility] ([id number]) [address] [place] [address] 54745 ABSOLUTE NEUTROPHIL 4.7 X10E9/L Normal 1.5-6.6 [facility] Comment on above: Performed By: #### C BCA, 3094-0, POWER ELECTRONICS RESEARCH ENGINEER, 4091-3 #### [facility] ([id number]) [address] [place] [address] 26452 Basophils/100 WBC (Bld) 0.6 % Normal [facility] Comment on above: Performed By: #### Sammy RILEY, 3094-0, POWER ELECTRONICS RESEARCH ENGINEER, 4091-12 #### [facility] ([id number]) [address] [place] [address] 29690 Eosinophils (Bld) [#/Vol] 0.0 10*3/uL Normal 0.0-0.4 [facility] Comment on above: Performed By: #### Sammy RILEY, 3094-0, POWER ELECTRONICS RESEARCH ENGINEER, 4091-12 #### [facility] ([id number]) [address] [place] [address] 35904 Eosinophils/100 WBC (Bld) 0.6 % Normal [facility] Comment on above: Performed By: #### Sammy RILEY, 309-0, POWER ELECTRONICS RESEARCH ENGINEER, 4091-12 #### [facility] ([id number]) [address] [place] [address] 76874 Erythrocyte distribution width (RBC) [Ratio] 18.5 % High 11.5-15.0 [facility] Comment on above: Performed By: #### Sammy RILEY, 3094-0, POWER ELECTRONICS RESEARCH ENGINEER, 4091-12 #### [facility] ([id number]) [address] [place] [address] 50138 Hematocrit (Bld) [Volume fraction] 23.7 % Low 39-49 [facility] Comment on above: Performed By: #### Sammy BCA, 3094-0, [employer] ENGINEER, 4091-12 #### [facility] ([id number]) [address] [place] [address] 44525 Hemoglobin (Bld) [Mass/Vol] 7.8 g/dL Low 13.0-17.0 [facility] Comment on above: Performed By: #### Sammy RILEY, 3094-0, [employer] ENGINEER, 4091-12 #### [facility] ([id number]) [address] [place] [address] 16009 Lymphocytes (Bld) [#/Vol] 0.5 10*3/uL Low 1.0-3.5 [facility] Comment on above: Performed By: #### Sammy RILEY, 3094-0, [employer] ENGINEER, 4091-3 #### [facility] ([id number]) [address] [place] [address] [id number] Lymphocytes/100 WBC (Bld) 8.5 % Normal [facility] Comment on above: Performed By: #### Sammy RILEY, 3094-0, [employer] ENGINEER, 4091-12 #### [facility] ([id number]) [address] [place] [address] 04375 MCH (RBC) [Entitic mass] 27.9 pg Normal 27-34 [facility] Comment on above: Performed By: #### Sammy RILEY, 3094-0, [employer] ENGINEER, 4091-12 #### [facility] ([id number]) [address] [place] [address] [id number] MCHC (RBC) [Mass/Vol] 32.9 g/dL Normal 32-36 [facility] Comment on above: Performed By: #### Sammy RILEY, 3094-0, [employer] ENGINEER, 4091-12 #### [facility] ([id number]) [address] [place] [address] 77771 MCV (RBC) [Entitic vol] 85 fL Normal 80-[address] [facility] Comment on above: Performed By: #### Sammy RILEY, 3094-0, [employer] ENGINEER, 4091-12 #### [facility] ([id number]) [address] [place] [address] 71054 Monocytes (Bld) [#/Vol] 0.5 10*3/uL Normal 0-0.9 [facility] Comment on above: Performed By: #### Sammy RILEY, 3094-0, [employer] ENGINEER, 4091-12 #### [facility] ([id number]) [address] [place] [address] 98721 Monocytes/100 WBC (Bld) 9.2 % Normal [facility] Comment on above: Performed By: #### C BCA, 3094-0, [employer] ENGINEER, 4091-3 #### [facility] ([id number]) [address] [place] [address] 97515 Neutrophils/100 WBC (Bld) 81.1 % Normal [facility] Comment on above: Performed By: #### C BCA, 3094-0, POWER ELECTRONICS RESEARCH ENGINEER, 4091-3 #### [facility] ([id number]) [address] [place] [address]108 Platelet mean volume (Bld) [Entitic vol] 8.8 fL Normal 7-12 [facility] Comment on above: Performed By: #### Sammy BCA, 3094-0, POWER ELECTRONICS RESEARCH ENGINEER, 4091- #### [facility] ([id number]) [address] [place] [address] 33358 Platelets (Bld) [#/Vol] 101 10*3/uL Low 150-450 [facility] Comment on above: Performed By: #### C BCA, 3094-0, POWER ELECTRONICS RESEARCH ENGINEER, 4091- #### [facility] ([id number]) [address] [place] [address] 55678 RBC COUNT 2.80 X10E12/L Low 4.10-5.70 [facility] Comment on above: Performed By: #### C BCA, 3094-0, POWER ELECTRONICS RESEARCH ENGINEER, 4091- #### [facility] ([id number]) [address] [place] [address] 86403 WBC (Bld) [#/Vol] 5.8 10*3/uL Normal 4.0-11.0 [facility] Comment on above: Performed By: #### Sammy BCA, 3094-0, POWER ELECTRONICS RESEARCH ENGINEER, 4091- #### [facility] ([id number]) [address] [place] [address] CREATININEon 09-28-2023 Creatinine [Mass/Vol] 0.46 mg/dL Low 0.70-1.20 [facility] Comment on above: Result Comment: METH OD TRACEABLE TO IDMS STANDARD Performed By: #### C BCA, 3094-0, POWER ELECTRONICS RESEARCH ENGINEER, 4092-3 #### [facility] ([id number]) [address] [place] [address] 45343 eGFR (CKD-EPI) NON-RACE DEPENDENT >90 Normal >59 [facility] Comment on above: Result Comment: Reported eGFR is based on the CKD-EPI 2020 equation that does not use a race coefficient. Performed By: #### C BCA, 3094-0, POWER ELECTRONICS RESEARCH ENGINEER, 4092-3 #### [facility] ([id number]) [address] [place] [address]80 Vancomycin trough [Mass/Vol] on 09-28-2023 VANCOMYCIN TROUGH 12.3 ug/mL Normal 5.0-20.0 [facility] Comment on above: Performed By: #### C BCA, 3094-0, POWER ELECTRONICS RESEARCH ENGINEER, 4092-3 #### [facility] ([id number]) [address] [place] [address]258 30on 09-26-2023 30 The patient is Moderately Stable - Low risk of patient condition declining or worsening The patient's goals for the shift include Comfort The clinical goals for the shift include VSS Normal [facility] 30 Normal [facility] ANTI-XA (HEPARIN LEVEL)on HEPARIN UNFRACTIONATED (U/ML) IN PPP BY CHROMOGENIC METHOD 0.18 IU/mL Low 0.3-0.7 [facility] Comment on above: Result Comment: Masha roxaban and Apixaban will interfere with the anti Xa assay used to monitor UFH and LMWH. Performed By: #### L [id number] ####[facility] (BEAKER)[address] [place] [address] BASIC METABOLIC PANELon 12- Anion gap [Moles/Vol] 8 mmol/L Normal 7-20 [facility] Comment on above: Performed By: #### L [id number] ####[facility] (BEAKER)[address] [place] [address] Calcium [Mass/Vol] 8.5 mg/dL Low 8.6-10.3 [facility] Comment on above: Performed By: #### L [id number] ####[facility] (BEAKER)[address] [place] [address] Chloride [Moles/Vol] 105 mmol/L Normal 98-107 [facility] Comment on above: Performed By: #### L [id number] ####[facility] (BEAKER)[address] [place] [address] CO2 [Moles/Vol] 26 mmol/L Normal 21-31 [facility] Comment on above: Performed By: #### L [id number] ####[facility] (BEAKER)[address] [place] [address] Creatinine [Mass/Vol] 0.40 mg/dL Low 0.70-1.30 [facility] Comment on above: Performed By: #### L [id number] ####[facility] [place] [address] GLOMERULAR FILTRATION RATE ML/MIN/1.73 SQ M.PREDICTED 113.1 mL/min/1.73m*2 Normal >60.0 [facility] Comment on above: Result Comment: [facility]???s estimated glomerular filtration rate (eGFR) will [...] of individuals. Performed By: #### L [id number] ####[facility] (BEAKER)[address] [place] [address] Glucose [Mass/Vol] 92 mg/dL Normal 70-100 [facility] Comment on above: Performed By: #### L [id number] ####[facility] [place] [address] Potassium [Moles/Vol] 3.8 mmol/L Normal 3.5-5.1 [facility] Comment on above: Performed By: #### L [id number] ####[facility] (BEAKER)[address] [place] [address] Sodium [Moles/Vol] 135 mmol/L Low 136-145 [facility] Comment on above: Performed By: #### L [id number] ####[facility] [place] [address] Urea nitrogen [Mass/Vol] 14 mg/dL Normal 7-25 [facility] Comment on above: Performed By: #### L [id number] ####[facility] [place] [address] UREA NITROGEN/CREATININE (MASS RATIO) IN SER/PLAS 35.0 Normal [facility] Comment on above: Performed By: #### L [id number] ####[facility] [place] [address] CBC WITH AUTO DIFFERENTIALon 09-26-2023 Erythrocyte distribution width (RBC) [Ratio] 18.0 % High 11.5-15.0 [facility] Comment on above: Performed By: #### L [id number] ####[facility] [place] [address] ERYTHROCYTE MEAN CORPUSCULAR HEMOGLOBIN CONCENTRATION (G/DL) BY AUTOMATED 32.0 g/dL Normal 32.0-35.0 [facility] Comment on above: Performed By: #### L [id number] ####[facility] [place] [address] Hematocrit (Bld) [Volume fraction] 22.8 % Low 39.0-55.0 [facility] Comment on above: Performed By: #### L [id number] ####[facility] ([facility])[address] [place] [address] Hemoglobin (Bld) [Mass/Vol] 7.3 g/dL Low 13.0-17.0 [facility] Comment on above: Performed By: #### L [id number] ####[facility] ([facility])[address] [place] [address] IMMATURE PLATELET FRACTION % 3.7 % Normal 0.8-6.3 [facility] Comment on above: Performed By: #### L [id number] ####[facility] ([facility])[address] [place] [address] MCH (RBC) [Entitic mass] 27.9 pg Normal 27.0-33.0 [facility] Comment on above: Performed By: #### L [id number] ####[facility] ([facility])[address] [place] [address] MCV (RBC) [Entitic vol] 87.0 fL Normal 82.0-98.0 [facility] Comment on above: Performed By: #### L [id number] ####[facility] ([facility])[address] [place] [address] NRBC (PER 100 WBCS) BY AUTOMATED COUNT 0.0 % Normal 0 [facility] Comment on above: Performed By: #### L [id number] ####[facility] ([facility])[address] [place] [address] PLATELETS (10*3/UL) IN BLOOD AUTOMATED COUNT 75 10*3/uL Low 150-400 [facility] Comment on above: Result Comment: CASSIE ODONNELL PV = 73 @ 09/25/23 Performed By: #### L [id number] ####[facility] [place] [address] RBC (Bld) [#/Vol] 2.62 10*6/uL Low 4.20-5.70 [facility] Comment on above: Performed By: #### L [id number] ####[facility] ([facility])[address] [place] [address] WBC (Bld) [#/Vol] 2.12 10*3/uL Low 4.00-10.60 [facility] Comment on above: Performed By: #### L [id number] ####[facility] ([facility])[address] [place] [address] DSon 09-26-2023 DS Normal [facility] MAGNESIUMon 09-26-2023 Magnesium [Mass/Vol] 1.6 mg/dL Low 1.9-2.7 [facility] Comment on above: Performed By: #### L [id number] ####[facility] ([facility])[address] [place] [address] MANUAL DIFFERENTIALon 2022 BASOPHILS (10*3/UL) IN BLOOD BY CALCULATION 0.01 10*3/uL Normal 0.00-0.20 [facility] Comment on above: Performed By: #### L [id number] ####[facility] ([facility])[address] [place] [address] BASOPHILS/100 LEUKOCYTES IN BLOOD BY AUTOMATED COUNT 0.5 % Normal 0.0-1.0 [facility] Comment on above: Performed By: #### L [id number] ####[facility] ([facility])[address] [place] [address] EOSINOPHILS (10*3/UL) IN BLOOD BY CALCULATION 0.02 10*3/uL Normal 0.00-0.50 [facility] Comment on above: Performed By: #### L [id number] ####[facility] ([facility])[address] [place] [address] EOSINOPHILS/100 LEUKOCYTES IN BLOOD BY AUTOMATED COUNT 0.9 % Normal 0.0-6.0 [facility] Comment on above: Performed By: #### L [id number] ####[facility] ([facility])[address] [place] [address] IMMATURE GRANULOCYTES (10*3/UL) IN BLOOD BY CALCULATION 0.01 10*3/uL Normal 0.00-0.20 [facility] Comment on above: Performed By: #### L [id number] ####[facility] ([facility])[address] [place] [address] IMMATURE GRANULOCYTES/100 LEUKOCYTES IN BLOOD BY AUTOMATED COUNT 0.5 % Normal 0.0-1.0 [facility] Comment on above: Performed By: #### L [id number] ####[facility] ([facility])[address] [place], [place] [address] LYMPHOCYTES (10*3/UL) IN BLOOD BY CALCULATION 0.36 10*3/uL Low 1.20-4.00 [facility] Comment on above: Performed By: #### L [id number] ####[facility] ([facility])[address] [place], [place] [address] LYMPHOCYTES/100 LEUKOCYTES IN BLOOD BY AUTOMATED COUNT 17.0 % Low 20.0-45.0 [facility] Comment on above: Performed By: #### L [id number] ####[facility] ([facility])[address] [place], [place] [address] MONOCYTES (10*3/UL) IN BLOOD BY CALCUATION 0.24 10*3/uL Normal 0.10-1.00 [facility] Comment on above: Performed By: #### L [id number] ####[facility] ([facility])[address] [place] [address] MONOCYTES/100 LEUKOCYTES IN BLOOD BY AUTOMATED COUNT 11.3 % Normal 5.0-12.0 [facility] Comment on above: Performed By: #### L [id number] ####[facility] ([facility])[address] [place] [address] NEUTROPHILS (10*3/UL) IN BLOOD BY CALCULATION 1.5 10*3/uL Low 1.6-7.6 [facility] Comment on above: Performed By: #### L [id number] ####[facility] ([facility])[address] [place] [address] NEUTROPHILS/100 LEUKOCYTES IN BLOOD BY AUTOMATED COUNT 69.8 % Normal 40.0-72.0 [facility] Comment on above: Performed By: #### L [id number] ####[facility] ([facility])[address] [place] [address] NURSNOTEon 09-26-2023 NURSNOTE Normal [facility] NURSNOTE Normal [facility] PHOSPHORUSon 09-26-2023 Magnesium [Mass/Vol] 3.2 mg/dL Normal 2.5-5.0 [facility] Comment on above: Performed By: #### L [id number] ####[facility] ([facility])[address] [place] [address] POCT GLUCOSE METER UNSOLICIT ED RESULTSon 09-26-2023 Glucose [Mass/Vol] 117 mg/dL High 70-105 [facility] Comment on above: Order Comment: Waive d Testing in the ED is performed under the ED CLIA certificate #[id number]. Result Comment: [email or web address] Performed By: #### L [id number] ####[facility] ([facility])[address] [place] [address] 30on 09-25-2023 30 Normal [facility] ANTI-XA (HEPARIN LEVEL)on HEPARIN UNFRACTIONATED (U/ML) IN PPP BY CHROMOGENIC METHOD 0.17 IU/mL Low 0.3-0.7 [facility] Comment on above: Result Comment: Masha roxaban and Apixaban will interfere with the anti Xa assay used to monitor UFH and LMWH. Performed By: #### L [id number] ####[facility] ([facility])[address] [place] [address] HEPARIN UNFRACTIONATED (U/ML) IN PPP BY CHROMOGENIC METHOD 0.19 IU/mL Low 0.3-0.7 [facility] Comment on above: Result Comment: Masha roxaban and Apixaban will interfere with the anti Xa assay used to monitor UFH and LMWH. Performed By: #### L [id number] ####[facility] ([facility])[address] [place] [address] HEPARIN UNFRACTIONATED (U/ML) IN PPP BY CHROMOGENIC METHOD 0.15 IU/mL Invalid Interpretation Code 0.3-0.7 [facility] Comment on above: Result Comment: Masha roxaban and Apixaban will interfere with the anti Xa assay used to monitor UFH and LMWH. Performed By: #### L [id number] ####[facility] ([facility])[address] [place] [address] APTTon 09-25-2023 ACTIVATED PARTIAL THROMBOPLASTIN TIME IN PPP BY COAGULATION ASSAY 71.9 Seconds High 25.0-35.0 [facility] Comment on above: Result Comment: Clin ical significance of the APTT is questionable in the presence of heparin. Performed By: #### L [id number] ####[facility] ([facility])[address] [place] [address] BASIC METABOLIC PANELon 09-09 Anion gap [Moles/Vol] 8 mmol/L Normal 7-20 [facility] Comment on above: Performed By: #### L [id number] ####[facility] ([facility])[address] [place] [address] Calcium [Mass/Vol] 8.4 mg/dL Low 8.6-10.3 [facility] Comment on above: Performed By: #### L [id number] ####[facility] ([facility])[address] [place] [address] Chloride [Moles/Vol] 105 mmol/L Normal 98-107 [facility] Comment on above: Performed By: #### L [id number] ####[facility] ([facility])[address] [place] [address] CO2 [Moles/Vol] 25 mmol/L Normal 21-31 [facility] Comment on above: Performed By: #### L [id number] ####[facility] ([facility])[address] [place] [address] Creatinine [Mass/Vol] 0.31 mg/dL Low 0.70-1.30 [facility] Comment on above: Performed By: #### L [id number] ####[facility] ([facility])[address] [place] [address] GLOMERULAR FILTRATION RATE ML/MIN/1.73 SQ M.PREDICTED 122.1 mL/min/1.73m*2 Normal >60.0 [facility] Comment on above: Result Comment: [facility]???s estimated glomerular filtration rate (eGFR) will [...] of individuals. Performed By: #### L [id number] ####[facility] ([facility])[address] [place] [address] Glucose [Mass/Vol] 107 mg/dL High 70-100 [facility] Comment on above: Performed By: #### L [id number] ####[facility] ([facility])[address] [place] [address] Potassium [Moles/Vol] 3.7 mmol/L Normal 3.5-5.1 [facility] Comment on above: Performed By: #### L [id number] ####[facility] ([facility])[address] [place] [address] Sodium [Moles/Vol] 134 mmol/L Low 136-145 [facility] Comment on above: Performed By: #### L [id number] ####[facility] ([facility])[address] [place] [address] Urea nitrogen [Mass/Vol] 13 mg/dL Normal 7-25 [facility] Comment on above: Performed By: #### L [id number] ####[facility] [place] [address] UREA NITROGEN/CREATININE (MASS RATIO) IN SER/PLAS 41.9 Normal [facility] Comment on above: Performed By: #### L [id number] ####[facility] ([facility])[address] [place] [address] CBC WITH AUTO DIFFERENTIALon 09-25-2023 Erythrocyte distribution width (RBC) [Ratio] 17.7 % High 11.5-15.0 [facility] Comment on above: Performed By: #### L [id number] ####[facility] ([facility])[address] [place] [address] ERYTHROCYTE MEAN CORPUSCULAR HEMOGLOBIN CONCENTRATION (G/DL) BY AUTOMATED 31.3 g/dL Low 32.0-35.0 [facility] Comment on above: Performed By: #### L [id number] ####[facility] ([facility])[address] [place] [address] Hematocrit (Bld) [Volume fraction] 24.0 % Low 39.0-55.0 [facility] Comment on above: Performed By: #### L [id number] ####[facility] ([facility])[address] [place] [address] Hemoglobin (Bld) [Mass/Vol] 7.5 g/dL Low 13.0-17.0 [facility] Comment on above: Performed By: #### L [id number] ####[facility] ([facility])[address] [place] [address] IMMATURE PLATELET FRACTION % 2.7 % Normal 0.8-6.3 [facility] Comment on above: Performed By: #### L [id number] ####[facility] ([facility])[address] [place] [address] MCH (RBC) [Entitic mass] 27.0 pg Normal 27.0-33.0 [facility] Comment on above: Performed By: #### L [id number] ####[facility] [place] [address] MCV (RBC) [Entitic vol] 86.3 fL Normal 82.0-98.0 [facility] Comment on above: Performed By: #### L [id number] ####[facility] ([facility])[address] [address] NRBC (PER 100 WBCS) BY AUTOMATED COUNT 0.0 % Normal 0 [facility] Comment on above: Performed By: #### L [id number] ####[facility] ([facility])[address] [place] [address] PLATELETS (10*3/UL) IN BLOOD AUTOMATED COUNT 73 10*3/uL Low 150-400 [facility] Comment on above: Result Comment: Last plt 73 1d Performed By: #### L [id number] ####[facility] ([facility])[address] [address] RBC (Bld) [#/Vol] 2.78 10*6/uL Low 4.20-5.70 [facility] Comment on above: Performed By: #### L [id number] ####[facility] ([facility])[address] [place] [address] WBC (Bld) [#/Vol] 2.11 10*3/uL Low 4.00-10.60 [facility] Comment on above: Performed By: #### L [id number] ####[facility] ([facility])[address] [place] [address] MAGNESIUMon 09-25-2023 Magnesium [Mass/Vol] 1.6 mg/dL Low 1.9-2.7 [facility] Comment on above: Performed By: #### L [id number] ####[facility] ([facility])[address] [place] [address] MANUAL DIFFERENTIALon 2022 BASOPHILS (10*3/UL) IN BLOOD BY CALCULATION 0.01 10*3/uL Normal 0.00-0.20 [facility] Comment on above: Performed By: #### L [id number] ####[facility] [place] [address] BASOPHILS/100 LEUKOCYTES IN BLOOD BY AUTOMATED COUNT 0.5 % Normal 0.0-1.0 [facility] Comment on above: Performed By: #### L [id number] ####[facility] ([facility])[address] [place] [address] EOSINOPHILS (10*3/UL) IN BLOOD BY CALCULATION 0.04 10*3/uL Normal 0.00-0.50 [facility] Comment on above: Performed By: #### L [id number] ####[facility] ([facility])[address] [place] [address] EOSINOPHILS/100 LEUKOCYTES IN BLOOD BY AUTOMATED COUNT 1.9 % Normal 0.0-6.0 [facility] Comment on above: Performed By: #### L [id number] ####[facility] ([facility])[address] [place] [address] IMMATURE GRANULOCYTES (10*3/UL) IN BLOOD BY CALCULATION 0.01 10*3/uL Normal 0.00-0.20 [facility] Comment on above: Performed By: #### L [id number] ####[facility] ([facility])[address] [place] [address] IMMATURE GRANULOCYTES/100 LEUKOCYTES IN BLOOD BY AUTOMATED COUNT 0.5 % Normal 0.0-1.0 [facility] Comment on above: Performed By: #### L [id number] ####[facility] ([facility])[address] [place] [address] LYMPHOCYTES (10*3/UL) IN BLOOD BY CALCULATION 0.37 10*3/uL Low 1.20-4.00 [facility] Comment on above: Performed By: #### L [id number] ####[facility], [place] [address] LYMPHOCYTES/100 LEUKOCYTES IN BLOOD BY AUTOMATED COUNT 17.5 % Low 20.0-45.0 [facility] Comment on above: Performed By: #### L [id number] ####[facility] ([facility])[address] [place] [address] MONOCYTES (10*3/UL) IN BLOOD BY CALCUATION 0.22 10*3/uL Normal 0.10-1.00 [facility] Comment on above: Performed By: #### L [id number] ####[facility] ([facility])[address] [place] [address] MONOCYTES/100 LEUKOCYTES IN BLOOD BY AUTOMATED COUNT 10.4 % Normal 5.0-12.0 [facility] Comment on above: Performed By: #### L [id number] ####[facility] ([facility])[address] [place] [address] NEUTROPHILS (10*3/UL) IN BLOOD BY CALCULATION 1.5 10*3/uL Low 1.6-7.6 [facility] [place] Comment on above: Performed By: #### L [id number] ####[facility] ([facility])[address] [place] [address] NEUTROPHILS/100 LEUKOCYTES IN BLOOD BY AUTOMATED COUNT 69.2 % Normal 40.0-72.0 [facility] Comment on above: Performed By: #### L [id number] ####[facility] ([facility])[address] [place] [address] NURSNOTEon 09-25-2023 NURSNOTE Pt would not let francis lee change his wound vac, stated that it would be changed tomorrow when he is discharged. He did however let us bathe him, change linens and change his picc line dressing today. Paulina Kay RN Normal [facility] PHOSPHORUSon 09-25-2023 Magnesium [Mass/Vol] 2.7 mg/dL Normal 2.5-5.0 [facility] Comment on above: Performed By: #### L [id number] ####[facility] ([facility])[address] [place] [address] POCT GLUCOSE METER UNSOLICIT ED RESULTSon 09-25-2023 Glucose [Mass/Vol] 97 mg/dL Normal 70-105 [facility] Comment on above: Order Comment: Waive d Testing in the ED is performed under the ED CLIA certificate #[id number]. Result Comment: [email or web address] Performed By: #### L [id number] ####[facility] (BER[facility])[address] [place] [address] Glucose [Mass/Vol] 188 mg/dL High 70-105 [facility] Comment on above: Order Comment: Waive d Testing in the ED is performed under the ED CLIA certificate #[id number]. Result Comment: [email or web address] Performed By: #### L [id number] ####[facility] ([facility])[address] [place] [address] Glucose [Mass/Vol] 125 mg/dL High 70-105 [facility] Comment on above: Order Comment: Waive d Testing in the ED is performed under the ED CLIA certificate #[id number]. Result Comment: [email or web address] Performed By: #### L [id number] ####[facility] ([facility])[address] [facility] [place] [address] Glucose [Mass/Vol] 108 mg/dL High 70-105 [facility] Comment on above: Order Comment: Waive d Testing in the ED is performed under the ED CLIA certificate #[id number]. Result Comment: [email or web address] Performed By: #### L [id number] ####[facility] ([facility])[address] [facility] [place] [address] 30on 09-24-2023 30 Normal [facility] ANTI-XA (HEPARIN LEVEL)on HEPARIN UNFRACTIONATED (U/ML) IN PPP BY CHROMOGENIC METHOD <0.10 Invalid Interpretation Code 0.3-0.7 [facility] Comment on above: Result Comment: [place] roxaban and Apixaban will interfere with the anti Xa assay used to monitor UFH and LMWH. Performed By: #### L [id number] ####[facility] [facility] [place] [address] BASIC METABOLIC PANELon 09-09 Anion gap [Moles/Vol] 8 mmol/L Normal 7-20 [facility] Comment on above: Performed By: #### L [id number] ####[facility] ([facility])[address] [place] [address] Calcium [Mass/Vol] 8.4 mg/dL Low 8.6-10.3 [facility] Comment on above: Performed By: #### L [id number] ####[facility] ([facility])[address] [place] [address] Chloride [Moles/Vol] 103 mmol/L Normal 98-107 [facility] Comment on above: Performed By: #### L [id number] ####[facility] ([facility])[address] [place] [address] CO2 [Moles/Vol] 28 mmol/L Normal 21-31 [facility] Comment on above: Performed By: #### L [id number] ####[facility] ([facility])[address] [place] [address] Creatinine [Mass/Vol] 0.36 mg/dL Low 0.70-1.30 [facility] Comment on above: Performed By: #### L [id number] ####[facility] ([facility])[address] [place] [address] GLOMERULAR FILTRATION RATE ML/MIN/1.73 SQ M.PREDICTED 116.7 mL/min/1.73m*2 Normal >60.0 [facility] Comment on above: Result Comment: [facility]???s estimated glomerular filtration rate (eGFR) will [...] of individuals. Performed By: #### L [id number] ####[facility] ([facility] [place] [address] Glucose [Mass/Vol] 100 mg/dL Normal 70-100 [facility] Comment on above: Performed By: #### L [id number] ####[facility] ([facility] [place] [address] Potassium [Moles/Vol] 3.5 mmol/L Normal 3.5-5.1 [facility] Comment on above: Performed By: #### L [id number] ####[facility] ([facility])[address] [place] [address] Sodium [Moles/Vol] 135 mmol/L Low 136-145 [facility] Comment on above: Performed By: #### L [id number] ####[facility] ([facility])[address] [place] [address] Urea nitrogen [Mass/Vol] 13 mg/dL Normal 7-25 [facility] Comment on above: Performed By: #### L [id number] ####[facility] ([facility])[address] [place] [address] UREA NITROGEN/CREATININE (MASS RATIO) IN SER/PLAS 36.1 Normal [facility] Comment on above: Performed By: #### L [id number] ####[facility] ([facility])[address] [place] [address] CBC WITH AUTO DIFFERENTIALon 09-24-2023 Erythrocyte distribution width (RBC) [Ratio] 17.8 % High 11.5-15.0 [facility] Comment on above: Performed By: #### L [id number] ####[facility] ([facility])[address] [place] [address] ERYTHROCYTE MEAN CORPUSCULAR HEMOGLOBIN CONCENTRATION (G/DL) BY AUTOMATED 32.1 g/dL Normal 32.0-35.0 [facility] Comment on above: Performed By: #### L [id number] ####[facility] ([facility] [place] [address] Hematocrit (Bld) [Volume fraction] 23.7 % Low 39.0-55.0 [facility] Comment on above: Performed By: #### L [id number] ####[facility] ([facility])[address] [place] [address] Hemoglobin (Bld) [Mass/Vol] 7.6 g/dL Low 13.0-17.0 [facility] Comment on above: Performed By: #### L [id number] ####[facility] ([facility])[address] [place] [address] IMMATURE PLATELET FRACTION % 3.1 % Normal 0.8-6.3 [facility] Comment on above: Performed By: #### L [id number] ####[facility] ([facility])[address] [place] [address] MCH (RBC) [Entitic mass] 27.7 pg Normal 27.0-33.0 [facility] Comment on above: Performed By: #### L [id number] ####[facility] ([facility])[address] [place] [address] MCV (RBC) [Entitic vol] 86.5 fL Normal 82.0-98.0 [facility] Comment on above: Performed By: #### L [id number] ####[facility] ([facility])[address] [place] [address] NRBC (PER 100 WBCS) BY AUTOMATED COUNT 0.0 % Normal 0 [facility] Comment on above: Performed By: #### L [id number] ####[facility] ([facility])[address] [place] [address] PLATELETS (10*3/UL) IN BLOOD AUTOMATED COUNT 73 10*3/uL Low 150-400 [facility] Comment on above: Performed By: #### L [id number] ####[facility] ([facility])[address] [place] [address] RBC (Bld) [#/Vol] 2.74 10*6/uL Low 4.20-5.70 [facility] Comment on above: Performed By: #### L [id number] ####[facility] ([facility])[address] [place] [address] WBC (Bld) [#/Vol] 2.37 10*3/uL Low 4.00-10.60 [facility] Comment on above: Performed By: #### L [id number] ####[facility] ([facility])[address] [place] [address] MAGNESIUMon 09-24-2023 Magnesium [Mass/Vol] 1.6 mg/dL Low 1.9-2.7 [facility] Comment on above: Performed By: #### L [id number] ####[facility] ([facility])[address] [place] [address] MANUAL DIFFERENTIALon 2022 BASOPHILS (10*3/UL) IN BLOOD BY CALCULATION 0.01 10*3/uL Normal 0.00-0.20 [facility] Comment on above: Performed By: #### L [id number] ####[facility] ([facility])[address] [place] [address] BASOPHILS/100 LEUKOCYTES IN BLOOD BY AUTOMATED COUNT 0.4 % Normal 0.0-1.0 [facility] Comment on above: Performed By: #### L [id number] ####[facility] ([facility])[address] [place] [address] EOSINOPHILS (10*3/UL) IN BLOOD BY CALCULATION 0.03 10*3/uL Normal 0.00-0.50 [facility] Comment on above: Performed By: #### L [id number] ####[facility] ([facility])[address] [place] [address] EOSINOPHILS/100 LEUKOCYTES IN BLOOD BY AUTOMATED COUNT 1.3 % Normal 0.0-6.0 [facility] Comment on above: Performed By: #### L [id number] ####[facility] ([facility] [place] [address] IMMATURE GRANULOCYTES (10*3/UL) IN BLOOD BY CALCULATION 0.01 10*3/uL Normal 0.00-0.20 [facility] Comment on above: Performed By: #### L [id number] ####[facility] ([facility])[address] [place] [address] IMMATURE GRANULOCYTES/100 LEUKOCYTES IN BLOOD BY AUTOMATED COUNT 0.4 % Normal 0.0-1.0 [facility] Comment on above: Performed By: #### L [id number] ####[facility] ([facility])[address] [place] [address] LYMPHOCYTES (10*3/UL) IN BLOOD BY CALCULATION 0.37 10*3/uL Low 1.20-4.00 [facility] Comment on above: Performed By: #### L [id number] ####[facility] ([facility])[address] [place] [address] LYMPHOCYTES/100 LEUKOCYTES IN BLOOD BY AUTOMATED COUNT 15.6 % Low 20.0-45.0 [facility] Comment on above: Performed By: #### L [id number] ####[facility] ([facility])[address] [place] [address] MONOCYTES (10*3/UL) IN BLOOD BY CALCUATION 0.19 10*3/uL Normal 0.10-1.00 [facility] Comment on above: Performed By: #### L [id number] ####[facility] ([facility])[address] [place] [address] MONOCYTES/100 LEUKOCYTES IN BLOOD BY AUTOMATED COUNT 8.0 % Normal 5.0-12.0 [facility] Comment on above: Performed By: #### L [id number] ####[facility] ([facility])[address] [place] [address] NEUTROPHILS (10*3/UL) IN BLOOD BY CALCULATION 1.8 10*3/uL Normal 1.6-7.6 [facility] Comment on above: Performed By: #### L [id number] ####[facility] ([facility])[address] [place] [address] NEUTROPHILS/100 LEUKOCYTES IN BLOOD BY AUTOMATED COUNT 74.3 % High 40.0-72.0 [facility] Comment on above: Performed By: #### L [id number] ####[facility] ([facility])[address] [place] [address] PHOSPHORUSon 09-24-2023 Magnesium [Mass/Vol] 3.0 mg/dL Normal 2.5-5.0 [facility] Comment on above: Performed By: #### L [id number] ####[facility] ([facility])[address] [place] [address] POCT GLUCOSE METER UNSOLICIT ED RESULTSon 09-24-2023 Glucose [Mass/Vol] 188 mg/dL High 70-105 [facility] Comment on above: Order Comment: Waive d Testing in the ED is performed under the ED CLIA certificate #[id number]. Result Comment: [email or web address] [email or web address] Performed By: #### L [id number] ####[facility] ([facility])[address] [place] [address] Glucose [Mass/Vol] 170 mg/dL High 70-105 [facility] Comment on above: Order Comment: Waive d Testing in the ED is performed under the ED CLIA certificate #[id number]. Result Comment: [email or web address] Performed By: #### L [id number] ####[facility] ([facility])[address] [place] [address] Glucose [Mass/Vol] 237 mg/dL High 70-105 [facility] Comment on above: Order Comment: Waive d Testing in the ED is performed under the ED CLIA certificate #[id number]. Result Comment: [email or web address] Performed By: #### L [id number] ####[facility] ([facility])[address] [place] [address] Glucose [Mass/Vol] 105 mg/dL Normal 70-105 [facility] Comment on above: Order Comment: Waive d Testing in the ED is performed under the ED CLIA certificate #[id number]. Result Comment: [email or web address] Performed By: #### L [id number] ####[facility] ([facility])[address] [place] [address] VANCOMYCIN, TROUGHon 09-24-2 023 VANCOMYCIN (UG/ML) IN SER/PLAS - TROUGH 11.7 ug/mL Normal 5.0-20.0 [facility] Comment on above: Performed By: #### L [id number] ####[facility] ([facility])[address] [place] [address] 30on 09-23-2023 30 Normal [facility] 30 Normal [facility] ANTI-XA (HEPARIN LEVEL)on HEPARIN UNFRACTIONATED (U/ML) IN PPP BY CHROMOGENIC METHOD 0.30 IU/mL Normal 0.3-0.7 [facility] Comment on above: Result Comment: [place] roxaban and Apixaban will interfere with the anti Xa assay used to monitor UFH and LMWH. Performed By: #### L [id number] ####[facility] ([facility])[address] [place] [address] HEPARIN UNFRACTIONATED (U/ML) IN PPP BY CHROMOGENIC METHOD 0.38 IU/mL Normal 0.3-0.7 [facility] Comment on above: Result Comment: [place] roxaban and Apixaban will interfere with the anti Xa assay used to monitor UFH and LMWH. Performed By: #### L [id number] ####[facility] ([facility])[address] [place] [address] HEPARIN UNFRACTIONATED (U/ML) IN PPP BY CHROMOGENIC METHOD 0.35 IU/mL Normal 0.3-0.7 [facility] Comment on above: Result Comment: [place] roxaban and Apixaban will interfere with the anti Xa assay used to monitor UFH and LMWH. Performed By: #### L [id number] ####[facility] ([facility])[address] [place] [address] HEPARIN UNFRACTIONATED (U/ML) IN PPP BY CHROMOGENIC METHOD 0.29 IU/mL Low 0.3-0.7 [facility] Comment on above: Result Comment: [place] roxaban and Apixaban will interfere with the anti Xa assay used to monitor UFH and LMWH. Performed By: #### L [id number] ####[facility] ([facility])[address] [place] [address] BASIC METABOLIC PANELon 12- Anion gap [Moles/Vol] 8 mmol/L Normal 7-20 [facility] Comment on above: Performed By: #### L [id number] ####[facility] ([facility])[address] [place] [address] Calcium [Mass/Vol] 7.9 mg/dL Low 8.6-10.3 [facility] Comment on above: Performed By: #### L [id number] ####[facility] ([facility] [place] [address] Chloride [Moles/Vol] 104 mmol/L Normal 98-107 [facility] Comment on above: Performed By: #### L [id number] ####[facility] ([facility] [place] [address] CO2 [Moles/Vol] 26 mmol/L Normal 21-31 [facility] Comment on above: Performed By: #### L [id number] ####[facility] [place] [address] Creatinine [Mass/Vol] 0.44 mg/dL Low 0.70-1.30 [facility] Comment on above: Performed By: #### L [id number] ####[facility] ([facility] [place] [address] GLOMERULAR FILTRATION RATE ML/MIN/1.73 SQ M.PREDICTED 109.9 mL/min/1.73m*2 Normal >60.0 [facility] Comment on above: Result Comment: [facility]???s estimated glomerular filtration rate (eGFR) will [...] of individuals. Performed By: #### L [id number] ####[facility] ([facility])[address] [place] [address] Glucose [Mass/Vol] 110 mg/dL High 70-100 [facility] Comment on above: Performed By: #### L [id number] ####[facility] ([facility])[address] [place] [address] Potassium [Moles/Vol] 3.7 mmol/L Normal 3.5-5.1 [facility] Comment on above: Performed By: #### L [id number] ####[facility] ([facility])[address] [place] [address] Sodium [Moles/Vol] 134 mmol/L Low 136-145 [facility] Comment on above: Performed By: #### L [id number] ####[facility] ([facility])[address] [place] [address] Urea nitrogen [Mass/Vol] 16 mg/dL Normal 7-25 [facility] Comment on above: Performed By: #### L [id number] ####[facility] ([facility])[address] [place] [address] UREA NITROGEN/CREATININE (MASS RATIO) IN SER/PLAS 36.4 Normal [facility] Comment on above: Performed By: #### L [id number] ####[facility] ([facility])[address] [place] [address] CBC WITH AUTO DIFFERENTIALon 09-23-2023 Erythrocyte distribution width (RBC) [Ratio] 17.6 % High 11.5-15.0 [facility] Comment on above: Performed By: #### L [id number] ####[facility] ([facility])[address] [place] [address] ERYTHROCYTE MEAN CORPUSCULAR HEMOGLOBIN CONCENTRATION (G/DL) BY AUTOMATED 32.3 g/dL Normal 32.0-35.0 [facility] Comment on above: Performed By: #### L [id number] ####[facility] ([facility])[address] [place] [address] Hematocrit (Bld) [Volume fraction] 23.5 % Low 39.0-55.0 [facility] Comment on above: Performed By: #### L [id number] ####[facility] ([facility])[address] [place] [address] Hemoglobin (Bld) [Mass/Vol] 7.6 g/dL Low 13.0-17.0 [facility] Comment on above: Result Comment: Resu lts checked pt has wound vac after surgery on 09/22/23 Performed By: #### L [id number] ####[facility] ([facility])[address] [place] [address] IMMATURE PLATELET FRACTION % 2.3 % Normal 0.8-6.3 [facility] Comment on above: Performed By: #### L [id number] ####[facility] ([facility])[address] [place] [address] MCH (RBC) [Entitic mass] 27.7 pg Normal 27.0-33.0 [facility] Comment on above: Performed By: #### L [id number] ####[facility] ([facility])[address] [place] [address] MCV (RBC) [Entitic vol] 85.8 fL Normal 82.0-98.0 [facility] Comment on above: Performed By: #### L [id number] ####[facility] ([facility])[address] [place] [address] NRBC (PER 100 WBCS) BY AUTOMATED COUNT 0.0 % Normal 0 [facility] Comment on above: Performed By: #### L [id number] ####[facility] ([facility])[address] [place] [address] PLATELETS (10*3/UL) IN BLOOD AUTOMATED COUNT 71 10*3/uL Low 150-400 [facility] Comment on above: Result Comment: Last plt 109 1d Performed By: #### L [id number] ####[facility] ([facility])[address] [place] [address] RBC (Bld) [#/Vol] 2.74 10*6/uL Low 4.20-5.70 [facility] Comment on above: Performed By: #### L [id number] ####[facility] ([facility])[address] [place] [address] WBC (Bld) [#/Vol] 2.37 10*3/uL Low 4.00-10.60 [facility] Comment on above: Performed By: #### L [id number] ####[facility] ([facility])[address] [place] [address] HEMOGLOBIN AND HEMATOCRIT, B LOODon 09-23-2023 Hematocrit (Bld) [Volume fraction] 26.5 % Low 39.0-55.0 [facility] Comment on above: Performed By: #### L [id number] ####[facility] ([facility])[address] [place] [address] Hemoglobin (Bld) [Mass/Vol] 8.4 g/dL Low 13.0-17.0 [facility] Comment on above: Performed By: #### L [id number] ####[facility] ([facility])[address] [place] [address] Hematocrit (Bld) [Volume fraction] 24.0 % Low 39.0-55.0 [facility] Comment on above: Performed By: #### L [id number] ####[facility] ([facility])[address] [place] [address] Hemoglobin (Bld) [Mass/Vol] 7.7 g/dL Low 13.0-17.0 [facility] Comment on above: Performed By: #### L [id number] ####[facility] ([facility])[address] [place] [address] MAGNESIUMon 09-23-2023 Magnesium [Mass/Vol] 1.6 mg/dL Low 1.9-2.7 [facility] Comment on above: Performed By: #### L [id number] ####[facility] ([facility])[address] [place] [address] MANUAL DIFFERENTIALon 2022 BASOPHILS (10*3/UL) IN BLOOD BY CALCULATION 0.01 10*3/uL Normal 0.00-0.20 [facility] Comment on above: Performed By: #### L [id number] ####[facility] ([facility])[address] [place] [address] BASOPHILS/100 LEUKOCYTES IN BLOOD BY AUTOMATED COUNT 0.4 % Normal 0.0-1.0 [facility] Comment on above: Performed By: #### L [id number] ####[facility] ([facility])[address] [place] [address] EOSINOPHILS (10*3/UL) IN BLOOD BY CALCULATION 0.04 10*3/uL Normal 0.00-0.50 [facility] Comment on above: Performed By: #### L [id number] ####[facility] ([facility])[address] [place] [address] EOSINOPHILS/100 LEUKOCYTES IN BLOOD BY AUTOMATED COUNT 1.7 % Normal 0.0-6.0 [facility] Comment on above: Performed By: #### L [id number] ####[facility] ([facility])[address] [place] [address] IMMATURE GRANULOCYTES (10*3/UL) IN BLOOD BY CALCULATION 0.01 10*3/uL Normal 0.00-0.20 [facility] Comment on above: Performed By: #### L [id number] ####[facility] ([facility])[address] [place] [address] IMMATURE GRANULOCYTES/100 LEUKOCYTES IN BLOOD BY AUTOMATED COUNT 0.4 % Normal 0.0-1.0 [facility] Comment on above: Performed By: #### L [id number] ####[facility] ([facility])[address] [place] [address] LYMPHOCYTES (10*3/UL) IN BLOOD BY CALCULATION 0.36 10*3/uL Low 1.20-4.00 [facility] [place] Comment on above: Performed By: #### L [id number] ####[facility] ([facility])[address] [address] LYMPHOCYTES/100 LEUKOCYTES IN BLOOD BY AUTOMATED COUNT 15.2 % Low 20.0-45.0 [facility] Comment on above: Performed By: #### L [id number] ####[facility] ([facility])[address] [address] MONOCYTES (10*3/UL) IN BLOOD BY CALCUATION 0.18 10*3/uL Normal 0.10-1.00 [facility] Comment on above: Performed By: #### L [id number] ####[facility] ([facility])[address] [address] MONOCYTES/100 LEUKOCYTES IN BLOOD BY AUTOMATED COUNT 7.6 % Normal 5.0-12.0 [facility] Comment on above: Performed By: #### L [id number] ####[facility] ([facility])[address] [address] NEUTROPHILS (10*3/UL) IN BLOOD BY CALCULATION 1.8 10*3/uL Normal 1.6-7.6 [facility] [place] Comment on above: Performed By: #### L [id number] ####[facility] ([facility])[address] [address] NEUTROPHILS/100 LEUKOCYTES IN BLOOD BY AUTOMATED COUNT 74.7 % High 40.0-72.0 [facility] Comment on above: Performed By: #### L [id number] ####[facility] ([facility])[address] [place] [address] PHOSPHORUSon 09-23-2023 Magnesium [Mass/Vol] 2.4 mg/dL Low 2.5-5.0 [facility] Comment on above: Performed By: #### L [id number] ####[facility] [place] [address] POCT GLUCOSE METER UNSOLICIT ED RESULTSon 09-23-2023 Glucose [Mass/Vol] 188 mg/dL High 70-105 [facility] Comment on above: Order Comment: Waive d Testing in the ED is performed under the ED CLIA certificate #[id number]. Result Comment: [email or web address] [email or web address] Performed By: #### L [id number] ####[facility] ([facility])[address] [facility] [address] Glucose [Mass/Vol] 158 mg/dL High 70-105 [facility] Comment on above: Order Comment: Waive d Testing in the ED is performed under the ED CLIA certificate #[id number]. Result Comment: [email or web address] Performed By: #### L [id number] ####[facility] ([facility])[address] [place] [address] Glucose [Mass/Vol] 252 mg/dL High 70-105 [facility] Comment on above: Order Comment: Waive d Testing in the ED is performed under the ED CLIA certificate #[id number]. Result Comment: [email or web address] Performed By: #### L [id number] ####[facility] ([facility])[address] [facility] [place] [address] Glucose [Mass/Vol] 120 mg/dL High 70-105 [facility] Comment on above: Order Comment: Waive d Testing in the ED is performed under the ED CLIA certificate #[id number]. Result Comment: [email or web address] Performed By: #### L [id number] ####[facility] ([facility])[address] [facility] [address] VANCOMYCIN, PEAKon VANCOMYCIN (UG/ML) IN SER/PLAS - PEAK 23.7 ug/mL Normal 20.0-50.0 [facility] Comment on above: Performed By: #### L [id number] ####[facility] ([facility])[address] [place] [address] 30on 09-22-2023 30 Normal [facility] 30 Normal [facility] 30 Normal [facility] ANTI-XA (HEPARIN LEVEL)on HEPARIN UNFRACTIONATED (U/ML) IN PPP BY CHROMOGENIC METHOD 0.21 IU/mL Low 0.3-0.7 [facility] Comment on above: Order Comment: Check anti-Xa level every 6 hours while on heparin infusion, or per protocol. Result Comment: [place] roxaban and Apixaban will interfere with the anti Xa assay used to monitor UFH and LMWH. Performed By: #### L [id number] ####[facility] ([facility])[address] [place] [address] HEPARIN UNFRACTIONATED (U/ML) IN PPP BY CHROMOGENIC METHOD 0.25 IU/mL Low 0.3-0.7 [facility] Comment on above: Order Comment: Check anti-Xa level every 6 hours while on heparin infusion, or per protocol. Result Comment: [place] roxaban and Apixaban will interfere with the anti Xa assay used to monitor UFH and LMWH. Performed By: #### L [id number] ####[facility] ([facility])[address] [place] [address] HEPARIN UNFRACTIONATED (U/ML) IN PPP BY CHROMOGENIC METHOD 0.22 IU/mL Low 0.3-0.7 [facility] Comment on above: Result Comment: [place] roxaban and Apixaban will interfere with the anti Xa assay used to monitor UFH and LMWH. Performed By: #### L [id number] ####[facility] ([facility])[address] [place] [address] HEPARIN UNFRACTIONATED (U/ML) IN PPP BY CHROMOGENIC METHOD 0.22 IU/mL Low 0.3-0.7 [facility] Comment on above: Order Comment: Check anti-Xa level every 6 hours while on heparin infusion, or per protocol. Result Comment: Masha roxaban and Apixaban will interfere with the anti Xa assay used to monitor UFH and LMWH. Performed By: #### L [id number] ####[facility] ([facility])[address] [place] [address] BASIC METABOLIC PANELon 12- Anion gap [Moles/Vol] 8 mmol/L Normal 7-20 [facility] Comment on above: Performed By: #### L [id number] ####[facility] ([facility])[address] [place] [address] Calcium [Mass/Vol] 8.0 mg/dL Low 8.6-10.3 [facility] Comment on above: Performed By: #### L [id number] ####[facility] ([facility])[address] [place] [address] Chloride [Moles/Vol] 102 mmol/L Normal 98-107 [facility] Comment on above: Performed By: #### L [id number] ####[facility] ([facility])[address] [place] [address] CO2 [Moles/Vol] 26 mmol/L Normal 21-31 [facility] Comment on above: Performed By: #### L [id number] ####[facility] ([facility])[address] [place] [address] Creatinine [Mass/Vol] 0.41 mg/dL Low 0.70-1.30 [facility] Comment on above: Performed By: #### L [id number] ####[facility] ([facility] [place] [address] GLOMERULAR FILTRATION RATE ML/MIN/1.73 SQ M.PREDICTED 112.2 mL/min/1.73m*2 Normal >60.0 [facility] Comment on above: Result Comment: [facility]???s estimated glomerular filtration rate (eGFR) will [...] of individuals. Performed By: #### L [id number] ####[facility] ([facility])[address] [place] [address] Glucose [Mass/Vol] 110 mg/dL High 70-100 [facility] Comment on above: Performed By: #### L [id number] ####[facility] ([facility])[address] [place] [address] Potassium [Moles/Vol] 3.7 mmol/L Normal 3.5-5.1 [facility] Comment on above: Performed By: #### L [id number] ####[facility] ([facility])[address] [place] [address] Sodium [Moles/Vol] 132 mmol/L Low 136-145 [facility] Comment on above: Performed By: #### L [id number] ####[facility] ([facility])[address] [place] [address] Urea nitrogen [Mass/Vol] 16 mg/dL Normal 7-25 [facility] Comment on above: Performed By: #### L [id number] ####[facility] ([facility])[address] [place] [address] UREA NITROGEN/CREATININE (MASS RATIO) IN SER/PLAS 39.0 Normal [facility] Comment on above: Performed By: #### L [id number] ####[facility] ([facility])[address] [place] [address] CBC WITH AUTO DIFFERENTIALon 09-22-2023 Basophils (Bld) [#/Vol] 0.00 10*3/uL Normal 0.00-0.20 [facility] Comment on above: Performed By: #### L [id number] ####[facility] ([facility])[address] [place] [address] Basophils/100 WBC (Bld) 0.0 % Normal 0.0-1.0 [facility] Comment on above: Performed By: #### L [id number] ####[facility] ([facility])[address] [place] [address] Eosinophils (Bld) [#/Vol] 0.03 10*3/uL Normal 0.00-0.50 [facility] Comment on above: Performed By: #### L [id number] ####[facility] ([facility])[address] [place] [address] Eosinophils/100 WBC (Bld) 0.7 % Normal 0.0-6.0 [facility] Comment on above: Performed By: #### L [id number] ####[facility] ([facility])[address] [place] [address] Erythrocyte distribution width (RBC) [Ratio] 17.6 % High 11.5-15.0 [facility] Comment on above: Performed By: #### L [id number] ####[facility] [place] [address] ERYTHROCYTE MEAN CORPUSCULAR HEMOGLOBIN CONCENTRATION (G/DL) BY AUTOMATED 32.2 g/dL Normal 32.0-35.0 [facility] Comment on above: Performed By: #### L [id number] ####[facility] ([facility])[address] [place] [address] Hematocrit (Bld) [Volume fraction] 27.6 % Low 39.0-55.0 [facility] Comment on above: Performed By: #### L [id number] ####[facility] [place] [address] Hemoglobin (Bld) [Mass/Vol] 8.9 g/dL Low 13.0-17.0 [facility] Comment on above: Performed By: #### L [id number] ####[facility] [place] [address] Immature granulocytes (Bld) [#/Vol] 0.02 10*3/uL Normal 0.00-0.20 [facility] Comment on above: Performed By: #### L [id number] ####[facility] ([facility])[address] [place] [address] Immature granulocytes/100 WBC (Bld) 0.5 % Normal 0.0-1.0 [facility] Comment on above: Performed By: #### L [id number] ####[facility] ([facility])[address] [place] [address] Lymphocytes (Bld) [#/Vol] 0.45 10*3/uL Low 1.20-4.00 [facility] Comment on above: Performed By: #### L [id number] ####[facility] ([facility])[address] [place] [address] Lymphocytes/100 WBC (Bld) 10.6 % Low 20.0-45.0 [facility] Comment on above: Performed By: #### L [id number] ####[facility] ([facility])[address] [place] [address] MCH (RBC) [Entitic mass] 27.5 pg Normal 27.0-33.0 [facility] Comment on above: Performed By: #### L [id number] ####[facility] ([facility])[address], [place] [address] MCV (RBC) [Entitic vol] 85.2 fL Normal 82.0-98.0 [facility] Comment on above: Performed By: #### L [id number] ####[facility] ([facility])[address] [place], [place] [address] Monocytes (Bld) [#/Vol] 0.45 10*3/uL Normal 0.10-1.00 [facility] Comment on above: Performed By: #### L [id number] ####[facility] ([facility])[address] [place], [place] [address] Monocytes/100 WBC (Bld) 10.6 % Normal 5.0-12.0 [facility] Comment on above: Performed By: #### L [id number] ####[facility] ([facility])[address] [place] [address] Neutrophils (Bld) [#/Vol] 3.28 10*3/uL Normal 1.60-7.60 [facility] Comment on above: Performed By: #### L [id number] ####[facility] ([facility])[address] [place] [address] Neutrophils/100 WBC (Bld) 77.6 % High 40.0-72.0 [facility] Comment on above: Performed By: #### L [id number] ####[facility] [address] NRBC (PER 100 WBCS) BY AUTOMATED COUNT 0.0 % Normal 0 [facility] Comment on above: Performed By: #### L [id number] ####[facility] ([facility] [address] PLATELETS (10*3/UL) IN BLOOD AUTOMATED COUNT 109 10*3/uL Low 150-400 [facility] Comment on above: Performed By: #### L [id number] ####[facility] ([facility])[address] [address] RBC (Bld) [#/Vol] 3.24 10*6/uL Low 4.20-5.70 [facility] Comment on above: Performed By: #### L [id number] ####[facility] ([facility])[address] [address] WBC (Bld) [#/Vol] 4.23 10*3/uL Normal 4.00-10.60 [facility] Comment on above: Performed By: #### L [id number] ####[facility], [place] [address] HEMOGLOBIN AND HEMATOCRIT, B LOODon 09-22-2023 Hematocrit (Bld) [Volume fraction] 30.1 % Low 39.0-55.0 [facility] Comment on above: Performed By: #### L [id number] ####[facility] ([facility])[address] [place], [place] [address] Hemoglobin (Bld) [Mass/Vol] 9.8 g/dL Low 13.0-17.0 [facility] Comment on above: Performed By: #### L [id number] ####[facility] ([facility])[address] [place] [address] MAGNESIUMon 12-14-2023 Magnesium [Mass/Vol] 1.7 mg/dL Low 1.9-2.7 [facility] Comment on above: Performed By: #### L [id number] ####[facility] ([facility])[address] [place] [address] PHOSPHORUSon 09-22-2023 Magnesium [Mass/Vol] 2.0 mg/dL Low 2.5-5.0 [facility] Comment on above: Performed By: #### L [id number] ####[facility] ([facility])[address] [place] [place] [address] POCT GLUCOSE METER UNSOLICIT ED RESULTSon 09-22-2023 Glucose [Mass/Vol] 102 mg/dL Normal 70-105 [facility] Comment on above: Order Comment: Waive d Testing in the ED is performed under the ED CLIA certificate #[id number]. Result Comment: [email or web address] Performed By: #### L [id number] ####[facility] ([facility])[address] [place] [address] Glucose [Mass/Vol] 212 mg/dL High 70-105 [facility] Comment on above: Order Comment: Waive d Testing in the ED is performed under the ED CLIA certificate #[id number]. Result Comment: [email or web address] Performed By: #### L [id number] ####[facility] ([facility])[address] [place] [address] Glucose [Mass/Vol] 177 mg/dL High 70-105 [facility] Comment on above: Order Comment: Waive d Testing in the ED is performed under the ED CLIA certificate #[id number]. Result Comment: [email or web address] Performed By: #### L [id number] ####[facility] ([facility])[address] [place] [place] [address] VANCOMYCIN, TROUGHon 023 VANCOMYCIN (UG/ML) IN SER/PLAS - TROUGH 6.1 ug/mL Normal 5.0-20.0 [facility] Comment on above: Order Comment: Plesavita e collect the trough at least one hour before the 0800 dose due Performed By: #### L [id number] ####[facility] ([facility])[address] [place] [address] 30on 09-21-2023 30 Normal [facility] 30 [facility] 30 [facility] ANTI-XA (HEPARIN LEVEL)on HEPARIN UNFRACTIONATED (U/ML) IN PPP BY CHROMOGENIC METHOD 0.18 IU/mL Low 0.3-0.7 [facility] Comment on above: Order Comment: Check anti-Xa level every 6 hours while on heparin infusion, or per protocol. Result Comment: [place] roxaban and Apixaban will interfere with the anti Xa assay used to monitor UFH and LMWH. Performed By: #### L [id number] ####[facility] ([facility])[address] [place] [address] HEPARIN UNFRACTIONATED (U/ML) IN PPP BY CHROMOGENIC METHOD 0.14 IU/mL Invalid Interpretation Code 0.3-0.7 [facility] Comment on above: Order Comment: Check anti-Xa level every 6 hours while on heparin infusion, or per protocol. Result Comment: [place] roxaban and Apixaban will interfere with the anti Xa assay used to monitor UFH and LMWH. Performed By: #### L [id number] ####[facility] ([facility])[address] [place] [address] HEPARIN UNFRACTIONATED (U/ML) IN PPP BY CHROMOGENIC METHOD <0.10 Invalid Interpretation Code 0.3-0.7 [facility] Comment on above: Result Comment: [place] roxaban and Apixaban will interfere with the anti Xa assay used to monitor UFH and LMWH. Performed By: #### L [id number] ####[facility] ([facility])[address] [place] [address] APTTon 09-21-2023 ACTIVATED PARTIAL THROMBOPLASTIN TIME IN PPP BY COAGULATION ASSAY 35.8 Seconds High 25.0-35.0 [facility] Comment on above: Order Comment: Basel ine aPTT before initiating heparin infusion. Result Comment: Clin ical significance of the APTT is questionable in the presence of heparin. Performed By: #### L [id number] ####[facility] ([facility])[address] [place] [address] BASIC METABOLIC PANELon 12-1 Anion gap [Moles/Vol] 12 mmol/L Normal 7-20 [facility] Comment on above: Performed By: #### L [id number] ####[facility] ([facility])[address] [place] [address] Calcium [Mass/Vol] 7.9 mg/dL Low 8.6-10.3 [facility] Comment on above: Performed By: #### L [id number] ####[facility] ([facility])[address] [place] [address] Chloride [Moles/Vol] 100 mmol/L Normal 98-107 [facility] Comment on above: Performed By: #### L [id number] ####[facility] ([facility])[address] [place] [place] [address] CO2 [Moles/Vol] 23 mmol/L Normal 21-31 [facility] Comment on above: Performed By: #### L [id number] ####[facility] ([facility])[address] [place] [address] Creatinine [Mass/Vol] 0.61 mg/dL Low 0.70-1.30 [facility] Comment on above: Performed By: #### L [id number] ####[facility] ([facility])[address] [place] [address] GLOMERULAR FILTRATION RATE ML/MIN/1.73 SQ M.PREDICTED 99.5 mL/min/1.73m*2 Normal >60.0 [facility] Comment on above: Result Comment: [facility]???s estimated glomerular filtration rate (eGFR) will [...] of individuals. Performed By: #### L [id number] ####[facility] ([facility])[address] [place] [address] Glucose [Mass/Vol] 246 mg/dL High 70-100 [facility] Comment on above: Performed By: #### L [id number] ####[facility] ([facility])[address] [place] [address] Potassium [Moles/Vol] 3.5 mmol/L Normal 3.5-5.1 [facility] Comment on above: Performed By: #### L [id number] ####[facility] ([facility])[address] [place] [address] Sodium [Moles/Vol] 131 mmol/L Low 136-145 [facility] Comment on above: Performed By: #### L [id number] ####[facility] ([facility])[address] [place] [address] Urea nitrogen [Mass/Vol] 15 mg/dL Normal 7-25 [facility] Comment on above: Performed By: #### L [id number] ####[facility] ([facility])[address] [place] [address] UREA NITROGEN/CREATININE (MASS RATIO) IN SER/PLAS 24.6 Normal [facility] Comment on above: Performed By: #### L [id number] ####[facility] ([facility])[address] [place] [address] Anion gap [Moles/Vol] 8 mmol/L Normal 7-20 [facility] Comment on above: Performed By: #### L [id number] ####[facility] ([facility])[address] [place] [address] Calcium [Mass/Vol] 8.5 mg/dL Low 8.6-10.3 [facility] Comment on above: Performed By: #### L [id number] ####[facility] [place] [address] Chloride [Moles/Vol] 101 mmol/L Normal 98-107 [facility] Comment on above: Performed By: #### L [id number] ####[facility] [place] [address] CO2 [Moles/Vol] 28 mmol/L Normal 21-31 [facility] Comment on above: Performed By: #### L [id number] ####[facility] ([facility])[address] [place] [address] Creatinine [Mass/Vol] 0.49 mg/dL Low 0.70-1.30 [facility] Comment on above: Performed By: #### L [id number] ####[facility] ([facility])[address] [place] [address] GLOMERULAR FILTRATION RATE ML/MIN/1.73 SQ M.PREDICTED 106.4 mL/min/1.73m*2 Normal >60.0 [facility] Comment on above: Result Comment: [facility]???s estimated glomerular filtration rate (eGFR) will [...] of individuals. Performed By: #### L [id number] ####[facility] [place] [address] Glucose [Mass/Vol] 113 mg/dL High 70-100 [facility] Comment on above: Performed By: #### L [id number] ####[facility] [place] [address] Potassium [Moles/Vol] 3.9 mmol/L Normal 3.5-5.1 [facility] Comment on above: Performed By: #### L [id number] ####[facility] [place] [address] Sodium [Moles/Vol] 133 mmol/L Low 136-145 [facility] Comment on above: Performed By: #### L [id number] ####[facility] ([facility])[address] [place] [address] Urea nitrogen [Mass/Vol] 13 mg/dL Normal 7-25 [facility] Comment on above: Performed By: #### L [id number] ####[facility] ([facility])[address] [place] [address] UREA NITROGEN/CREATININE (MASS RATIO) IN SER/PLAS 26.5 Normal [facility] Comment on above: Performed By: #### L [id number] ####[facility] ([facility])[address] [place] [address] CBC WITH AUTO DIFFERENTIALon 09-21-2023 Basophils (Bld) [#/Vol] 0.01 10*3/uL Normal 0.00-0.20 [facility] Comment on above: Performed By: #### L [id number] ####[facility] [place] [address] Basophils/100 WBC (Bld) 0.2 % Normal 0.0-1.0 [facility] Comment on above: Performed By: #### L [id number] ####[facility] ([facility] [place] [address] Eosinophils (Bld) [#/Vol] 0.01 10*3/uL Normal 0.00-0.50 [facility] Comment on above: Performed By: #### L [id number] ####[facility] ([facility])[address] [place] [address] Eosinophils/100 WBC (Bld) 0.2 % Normal 0.0-6.0 [facility] Comment on above: Performed By: #### L [id number] ####[facility] ([facility])[address] [place] [address] Erythrocyte distribution width (RBC) [Ratio] 18.0 % High 11.5-15.0 [facility] Comment on above: Performed By: #### L [id number] ####[facility] ([facility] [place] [address] ERYTHROCYTE MEAN CORPUSCULAR HEMOGLOBIN CONCENTRATION (G/DL) BY AUTOMATED 31.8 g/dL Low 32.0-35.0 [facility] Comment on above: Performed By: #### L [id number] ####[facility] ([facility])[address] [place] [address] Hematocrit (Bld) [Volume fraction] 31.8 % Low 39.0-55.0 [facility] Comment on above: Performed By: #### L [id number] ####[facility] ([facility])[address] [place] [address] Hemoglobin (Bld) [Mass/Vol] 10.1 g/dL Low 13.0-17.0 [facility] Comment on above: Performed By: #### L [id number] ####[facility] ([facility])[address] [place] [address] Immature granulocytes (Bld) [#/Vol] 0.03 10*3/uL Normal 0.00-0.20 [facility] Comment on above: Performed By: #### L [id number] ####[facility] ([facility])[address] [place] [address] Immature granulocytes/100 WBC (Bld) 0.5 % Normal 0.0-1.0 [facility] Comment on above: Performed By: #### L [id number] ####[facility] [place] [address] Lymphocytes (Bld) [#/Vol] 0.43 10*3/uL Low 1.20-4.00 [facility] Comment on above: Performed By: #### L [id number] ####[facility] ([facility])[address] [place] [address] Lymphocytes/100 WBC (Bld) 7.4 % Low 20.0-45.0 [facility] Comment on above: Performed By: #### L [id number] ####[facility] ([facility])[address] [place] [address] MCH (RBC) [Entitic mass] 26.9 pg Low 27.0-33.0 [facility] Comment on above: Performed By: #### L [id number] ####[facility] ([facility])[address] [place] [address] MCV (RBC) [Entitic vol] 84.8 fL Normal 82.0-98.0 [facility] Comment on above: Performed By: #### L [id number] ####[facility] ([facility])[address] [place] [address] Monocytes (Bld) [#/Vol] 0.56 10*3/uL Normal 0.10-1.00 [facility] Comment on above: Performed By: #### L [id number] ####[facility] ([facility])[address] [place] [address] Monocytes/100 WBC (Bld) 9.6 % Normal 5.0-12.0 [facility] Comment on above: Performed By: #### L [id number] ####[facility] ([facility])[address] [place] [address] Neutrophils (Bld) [#/Vol] 4.81 10*3/uL Normal 1.60-7.60 [facility] Comment on above: Performed By: #### L [id number] ####[facility] ([facility])[address] [place] [address] Neutrophils/100 WBC (Bld) 82.1 % High 40.0-72.0 [facility] Comment on above: Performed By: #### L [id number] ####[facility] ([facility])[address] [place] [address] NRBC (PER 100 WBCS) BY AUTOMATED COUNT 0.0 % Normal 0 [facility] Comment on above: Performed By: #### L [id number] ####[facility] ([facility])[address] [address] PLATELETS (10*3/UL) IN BLOOD AUTOMATED COUNT 122 10*3/uL Low 150-400 [facility] Comment on above: Performed By: #### L [id number] ####[facility] ([facility])[address] [address] RBC (Bld) [#/Vol] 3.75 10*6/uL Low 4.20-5.70 [facility] Comment on above: Performed By: #### L [id number] ####[facility] ([facility])[address] [address] WBC (Bld) [#/Vol] 5.85 10*3/uL Normal 4.00-10.60 [facility] Comment on above: Performed By: #### L [id number] ####[facility] ([facility])[address] [address] CONSULTon 09-21-2023 CONSULT Normal [facility] HEMOGLOBIN AND HEMATOCRIT, B LOODon 09-21-2023 Hematocrit (Bld) [Volume fraction] 30.8 % Low 39.0-55.0 [facility] Comment on above: Performed By: #### L [id number] ####[facility] ([facility])[address] [place] [address] Hemoglobin (Bld) [Mass/Vol] 10.2 g/dL Low 13.0-17.0 [facility] Comment on above: Performed By: #### L [id number] ####[facility] [address] MAGNESIUMon 09-21-2023 Magnesium [Mass/Vol] 2.0 mg/dL Normal 1.9-2.7 [facility] Comment on above: Performed By: #### L [id number] ####[facility] ([facility])[address] [place] [address] Magnesium [Mass/Vol] 1.5 mg/dL Low 1.9-2.7 [facility] Comment on above: Performed By: #### L [id number] ####[facility] ([facility])[address] [place] [address] PHOSPHORUSon 09-21-2023 Magnesium [Mass/Vol] 3.0 mg/dL Normal 2.5-5.0 [facility] Comment on above: Performed By: #### L [id number] ####[facility] ([facility])[address] [place] [address] PLATELET COUNTon 09-21-2023 PLATELETS (10*3/UL) IN BLOOD AUTOMATED COUNT 144 10*3/uL Low 150-400 [facility] Comment on above: Performed By: #### L [id number] ####[facility] ([facility])[address] [place] [address] POCT GLUCOSE METER UNSOLICIT ED RESULTSon 09-21-2023 Glucose [Mass/Vol] 154 mg/dL High 70-105 [facility] Comment on above: Order Comment: Waive d Testing in the ED is performed under the ED CLIA certificate #[id number]. Result Comment: [email or web address] Performed By: #### L [id number] ####[facility] ([facility])[address] [place] [address] Glucose [Mass/Vol] 217 mg/dL High 70-105 [facility] Comment on above: Order Comment: Waive d Testing in the ED is performed under the ED CLIA certificate #[id number]. Result Comment: [email or web address] Performed By: #### L [id number] ####[facility] ([facility])[address] [place] [address] Glucose [Mass/Vol] 105 mg/dL Normal 70-105 [facility] Comment on above: Order Comment: Waive d Testing in the ED is performed under the ED CLIA certificate #[id number]. Result Comment: [email or web address] Performed By: #### L [id number] ####[facility] ([facility] [place] [address] Glucose [Mass/Vol] 108 mg/dL High 70-105 [facility] Comment on above: Order Comment: Waive d Testing in the ED is performed under the ED CLIA certificate #[id number]. Result Comment: [email or web address] Performed By: #### L [id number] ####[facility] ([facility])[address] [place] [address] VANCOMYCIN, PEAKon 3 VANCOMYCIN (UG/ML) IN SER/PLAS - PEAK 12.1 ug/mL Low 20.0-50.0 [facility] Comment on above: Order Comment: Les meléndez collect the peak at least 1 hour after the infusion has been completed Performed By: #### L [id number] ####[facility] ([facility])[address] [place] [address] [id number] 09-20-2023 [id number] Normal [facility] 30on 09-20-2023 30 The patient is Moderately Stable - Low risk of patient condition declining or worsening The patient's goals for the shift include comfort, safety The clinical goals for the shift include comfort,safety Normal [facility] ANESon 09-20-2023 ANES Normal [facility] BASIC METABOLIC PANELon 09-09 Anion gap [Moles/Vol] 9 mmol/L Normal 7-20 [facility] Comment on above: Performed By: #### L [id number] ####[facility] [place] [address] Calcium [Mass/Vol] 8.4 mg/dL Low 8.6-10.3 [facility] Comment on above: Performed By: #### L [id number] ####[facility] ([facility] [place] [address] Chloride [Moles/Vol] 100 mmol/L Normal 98-107 [facility] Comment on above: Performed By: #### L [id number] ####[facility] [place] [address] CO2 [Moles/Vol] 27 mmol/L Normal 21-31 [facility] Comment on above: Performed By: #### L [id number] ####[facility] [place] [address] Creatinine [Mass/Vol] 0.51 mg/dL Low 0.70-1.30 [facility] Comment on above: Performed By: #### L [id number] ####[facility] ([facility])[address] [place] [address] GLOMERULAR FILTRATION RATE ML/MIN/1.73 SQ M.PREDICTED 105.1 mL/min/1.73m*2 Normal >60.0 [facility] Comment on above: Result Comment: [facility]???s estimated glomerular filtration rate (eGFR) will [...] of individuals. Performed By: #### L [id number] ####[facility] ([facility])[address] [place] [address] Glucose [Mass/Vol] 117 mg/dL High 70-100 [facility] Comment on above: Performed By: #### L [id number] ####[facility] ([facility] [place] [address] Potassium [Moles/Vol] 3.3 mmol/L Low 3.5-5.1 [facility] Comment on above: Performed By: #### L [id number] ####[facility] ([facility] [place] [address] Sodium [Moles/Vol] 133 mmol/L Low 136-145 [facility] Comment on above: Performed By: #### L [id number] ####[facility] ([facility])[address] [place] [address] Urea nitrogen [Mass/Vol] 14 mg/dL Normal 7-25 [facility] Comment on above: Performed By: #### L [id number] ####[facility] ([facility]ER)[address] [place] [address] UREA NITROGEN/CREATININE (MASS RATIO) IN SER/PLAS 27.5 Normal [facility] Comment on above: Performed By: #### L [id number] ####[facility] ([facility])[address] [place] [address] Anion gap [Moles/Vol] 11 mmol/L Normal 7-20 [facility] Comment on above: Performed By: #### L [id number] ####[facility] ([facility])[address] [place] [address] Calcium [Mass/Vol] 9.2 mg/dL Normal 8.6-10.3 [facility] Comment on above: Performed By: #### L [id number] ####[facility] ([facility])[address] [place] [address] Chloride [Moles/Vol] 102 mmol/L Normal 98-107 [facility] Comment on above: Performed By: #### L [id number] ####[facility] ([facility])[address] [place] [address] CO2 [Moles/Vol] 25 mmol/L Normal 21-31 [facility] Comment on above: Performed By: #### L [id number] ####[facility] ([facility]ER)[address] [place] [address] Creatinine [Mass/Vol] 0.53 mg/dL Low 0.70-1.30 [facility] Comment on above: Performed By: #### L [id number] ####[facility] ([facility])[address] [place] [address] GLOMERULAR FILTRATION RATE ML/MIN/1.73 SQ M.PREDICTED 103.9 mL/min/1.73m*2 Normal >60.0 [facility] Comment on above: Result Comment: [facility]???s estimated glomerular filtration rate (eGFR) will [...] of individuals. Performed By: #### L [id number] ####[facility] ([facility])[address] [facility] [address] Glucose [Mass/Vol] 93 mg/dL Normal 70-100 [facility] Comment on above: Performed By: #### L [id number] ####[facility] ([facility])[address] [facility] [address] Potassium [Moles/Vol] 3.7 mmol/L Normal 3.5-5.1 [facility] Comment on above: Performed By: #### L [id number] ####[facility] ([facility])[address] [place] [address] Sodium [Moles/Vol] 134 mmol/L Low 136-145 [facility] Comment on above: Performed By: #### L [id number] ####[facility] ([facility])[address] [place] [address] Urea nitrogen [Mass/Vol] 18 mg/dL Normal 7-25 [facility] Comment on above: Performed By: #### L [id number] ####[facility] ([facility])[address] [place] [address] UREA NITROGEN/CREATININE (MASS RATIO) IN SER/PLAS 34.0 Normal [facility] Comment on above: Performed By: #### L [id number] ####[facility] ([facility])[address] [place] [address] CBCon 09-20-2023 Erythrocyte distribution width (RBC) [Ratio] 18.0 % High 11.5-15.0 [facility] Comment on above: Performed By: #### L [id number] ####[facility] ([facility])[address] [place] [address] ERYTHROCYTE MEAN CORPUSCULAR HEMOGLOBIN CONCENTRATION (G/DL) BY AUTOMATED 31.9 g/dL Low 32.0-35.0 [facility] Comment on above: Performed By: #### L [id number] ####[facility] [place] [address] Hematocrit (Bld) [Volume fraction] 33.5 % Low 39.0-55.0 [facility] Comment on above: Performed By: #### L [id number] ####[facility] (BE[facility]ER)[address] [place] [address] Hemoglobin (Bld) [Mass/Vol] 10.7 g/dL Low 13.0-17.0 [facility] Comment on above: Performed By: #### L [id number] ####[facility] ([facility]ER)[address] [place] [address] MCH (RBC) [Entitic mass] 27.1 pg Normal 27.0-33.0 [facility] Comment on above: Performed By: #### L [id number] ####[facility] (BE[facility]ER)[address] [place] [address] MCV (RBC) [Entitic vol] 84.8 fL Normal 82.0-98.0 [facility] Comment on above: Performed By: #### L [id number] ####[facility] ([facility]ER)[address] [place] [address] PLATELETS (10*3/UL) IN BLOOD AUTOMATED COUNT 142 10*3/uL Low 150-400 [facility] Comment on above: Performed By: #### L [id number] ####[facility] ([facility]ER)[address] [place] [address] RBC (Bld) [#/Vol] 3.95 10*6/uL Low 4.20-5.70 [facility] Comment on above: Performed By: #### L [id number] ####[facility] ([facility]ER)[address] [place] [address] WBC (Bld) [#/Vol] 8.35 10*3/uL Normal 4.00-10.60 [facility] Comment on above: Performed By: #### L [id number] ####[facility] [place] [address] CBC WITH AUTO DIFFERENTIALon 09-20-2023 Basophils (Bld) [#/Vol] 0.00 10*3/uL Normal 0.00-0.20 [facility] Comment on above: Performed By: #### L [id number] ####[facility] ([facility])[address] [place] [address] Basophils/100 WBC (Bld) 0.0 % Normal 0.0-1.0 [facility] Comment on above: Performed By: #### L [id number] ####[facility] ([facility]ER)[address] [place] [address] Eosinophils (Bld) [#/Vol] 0.00 10*3/uL Normal 0.00-0.50 [facility] Comment on above: Performed By: #### L [id number] ####[facility] ([facility])[address] [place] [address] Eosinophils/100 WBC (Bld) 0.0 % Normal 0.0-6.0 [facility] Comment on above: Performed By: #### L [id number] ####[facility] ([facility])[address] [place] [address] Erythrocyte distribution width (RBC) [Ratio] 17.4 % High 11.5-15.0 [facility] Comment on above: Performed By: #### L [id number] ####[facility] ([facility]ER)[address] [place] [address] ERYTHROCYTE MEAN CORPUSCULAR HEMOGLOBIN CONCENTRATION (G/DL) BY AUTOMATED 32.1 g/dL Normal 32.0-35.0 [facility] Comment on above: Performed By: #### L [id number] ####[facility] ([facility])[address] [place] [address] Hematocrit (Bld) [Volume fraction] 36.5 % Low 39.0-55.0 [facility] Comment on above: Performed By: #### L [id number] ####[facility] (BE[facility]ER)[address] [place] [address] Hemoglobin (Bld) [Mass/Vol] 11.7 g/dL Low 13.0-17.0 [facility] Comment on above: Performed By: #### L [id number] ####[facility] ([facility]ER)[address] [place] [address] Immature granulocytes (Bld) [#/Vol] 0.03 10*3/uL Normal 0.00-0.20 [facility] Comment on above: Performed By: #### L [id number] ####[facility] ([facility]ER)[address] [place] [address] Immature granulocytes/100 WBC (Bld) 0.4 % Normal 0.0-1.0 [facility] Comment on above: Performed By: #### L [id number] ####[facility] ([facility])[address] [place] [address] Lymphocytes (Bld) [#/Vol] 0.37 10*3/uL Low 1.20-4.00 [facility] Comment on above: Performed By: #### L [id number] ####[facility] ([facility]ER)[address] [place] [address] Lymphocytes/100 WBC (Bld) 4.9 % Low 20.0-45.0 [facility] Comment on above: Performed By: #### L [id number] ####[facility] ([facility]ER)[address] [place] [address] MCH (RBC) [Entitic mass] 27.4 pg Normal 27.0-33.0 [facility] Comment on above: Performed By: #### L [id number] ####[facility] ([facility]ER)[address] [place] [address] MCV (RBC) [Entitic vol] 85.5 fL Normal 82.0-98.0 [facility] Comment on above: Performed By: #### L [id number] ####[facility] ([facility])[address] [place] [address] Monocytes (Bld) [#/Vol] 0.48 10*3/uL Normal 0.10-1.00 [facility] Comment on above: Performed By: #### L [id number] ####[facility] [place] [address] Monocytes/100 WBC (Bld) 6.3 % Normal 5.0-12.0 [facility] Comment on above: Performed By: #### L [id number] ####[facility] [place] [address] Neutrophils (Bld) [#/Vol] 6.73 10*3/uL Normal 1.60-7.60 [facility] Comment on above: Performed By: #### L [id number] ####[facility] ([facility]ER)[address] [place] [address] Neutrophils/100 WBC (Bld) 88.4 % High 40.0-72.0 [facility] Comment on above: Performed By: #### L [id number] ####[facility] ([facility]ER)[address] [place] [address] NRBC (PER 100 WBCS) BY AUTOMATED COUNT 0.0 % Normal 0 [facility] Comment on above: Performed By: #### L [id number] ####[facility] ([facility]ER)[address] [place] [address] PLATELETS (10*3/UL) IN BLOOD AUTOMATED COUNT 122 10*3/uL Low 150-400 [facility] Comment on above: Performed By: #### L [id number] ####[facility] ([facility])[address] [place] [address] RBC (Bld) [#/Vol] 4.27 10*6/uL Normal 4.20-5.70 [facility] Comment on above: Performed By: #### L [id number] ####[facility] ([facility])[address] [place] [address] WBC (Bld) [#/Vol] 7.61 10*3/uL Normal 4.00-10.60 [facility] Comment on above: Performed By: #### L [id number] ####[facility] ([facility])[address] [place] [address] CONSULTon 09-20-2023 CONSULT Normal [facility] CONSULT Normal [facility] DEVICE CULTUREon 09-20-2023 Bacteria identified Cx Nom (Unsp spec) No growth at 3 days [facility] Comment on above: Order Comment: Pre-o p diagnosis:Peripheral artery disease (CMS/HCC) [I73.9] Performed By: #### D EVICE CULTURE ####[facility] ([facility])[address] [place] [address] Bacteria identified Cx Nom (Unsp spec) No growth at 3 days [facility] Comment on above: Order Comment: Pre-o p diagnosis:Peripheral artery disease (CMS/HCC) [I73.9] Performed By: #### D EVICE CULTURE ####[facility] ([facility])[address] [place] [address] MAGNESIUMon 09-20-2023 Magnesium [Mass/Vol] 1.5 mg/dL Low 1.9-2.7 [facility] Comment on above: Performed By: #### L [id number] ####[facility] ([facility])[address] [place] [address] Magnesium [Mass/Vol] 1.9 mg/dL Normal 1.9-2.7 [facility] Comment on above: Performed By: #### L [id number] ####[facility] (BEAKER)[address] [place] [address] NURSNOTEon 09-20-2023 NURSNOTE Normal [facility] OPNOTEon 09-20-2023 OPNOTE Normal [facility] PHOSPHORUSon 09-20-2023 Magnesium [Mass/Vol] 2.9 mg/dL Normal 2.5-5.0 [facility] Comment on above: Performed By: #### L [id number] ####[facility] (BE[facility]ER)[address] [place] [address] Magnesium [Mass/Vol] 3.0 mg/dL Normal 2.5-5.0 [facility] Comment on above: Performed By: #### L [id number] ####[facility] ([facility])[address] [place] [address] POCT ACTIVATED CLOTTING TIME UNSOLICITED RESULTSon 09-20-2023 POC ACTIVATED CLOTTING TIME 154 sec High 82-152 [facility] Comment on above: Performed By: #### L [id number] ####[facility] ([facility])[address] [place] [address] POC ACTIVATED CLOTTING TIME 199 sec High 82-152 [facility] Comment on above: Performed By: #### L [id number] ####[facility] ([facility])[address] [place] [address] POC ACTIVATED CLOTTING TIME 222 sec High 82-152 [facility] Comment on above: Performed By: #### L [id number] ####[facility] ([facility])[address] [place] [address] POC ACTIVATED CLOTTING TIME 154 sec High 82-152 [facility] Comment on above: Performed By: #### L [id number] ####[facility] ([facility]ER)[address] [place] [address] POCT GLUCOSE METER UNSOLICIT ED RESULTSon 09-20-2023 Glucose [Mass/Vol] 156 mg/dL High 70-105 [facility] Comment on above: Order Comment: Waive d Testing in the ED is performed under the ED CLIA certificate #[id number]. Result Comment: [email or web address] Performed By: #### L [id number] ####[facility] [place] [address] Glucose [Mass/Vol] 105 mg/dL Normal 70-105 [facility] Comment on above: Order Comment: Waive d Testing in the ED is performed under the ED CLIA certificate #[id number]. Result Comment: [email or web address] Performed By: #### L [id number] ####[facility] [place] [address] POCT PERFUSION PANEL UNSOLIC ITED RESULTSon 09-20-2023 CO2 [Moles/Vol] 28.0 mmol/L Normal 21.0-29.0 [facility] [place] Comment on above: Performed By: #### L [id number] ####[facility] [place] [address] Glucose [Mass/Vol] 152 mg/dL High 70-105 [facility] Comment on above: Performed By: #### L [id number] ####[facility] [place] [address] HCO3 (Bld) [Moles/Vol] 27.1 mmol/L Normal 23.0-28.0 [facility] Comment on above: Performed By: #### L [id number] ####[facility] ([facility])[address] [place] [address] Hematocrit (Bld) [Volume fraction] 32 % Low 38-51 [facility] Comment on above: Performed By: #### L [id number] ####[facility] ([facility])[address] [place] [address] Hemoglobin (Bld) [Mass/Vol] 10.9 g/dL Low 12.0-17.0 [facility] Comment on above: Performed By: #### L [id number] ####[facility] ([facility])[address] [place] [address] POCT BASE EXCESS 3.0 mmol/L Normal -2.0-3.0 [facility] [place] Comment on above: Performed By: #### L [id number] ####[facility] [place] [address] POCT IONIZED CALCIUM 1.27 mmol/L Normal 1.12-1.32 [facility] Comment on above: Performed By: #### L [id number] ####[facility] ([facility] [place] [address] POCT PCO2 40.5 mmHg Low 41.0-51.0 [facility] Comment on above: Performed By: #### L [id number] ####[facility] ([facility])[address] [place] [address] POCT PH 7.43 High 7.31-7.41 [facility] Comment on above: Performed By: #### L [id number] ####[facility] [place] [address] POCT PO2 280 mmHg High 80-105 [facility] Comment on above: Performed By: #### L [id number] ####[facility] ([facility])[address] [place] [address] POCT SO2 100 % High 95-98 [facility] Comment on above: Performed By: #### L [id number] ####[facility] ([facility])[address] [place] [address] Potassium [Moles/Vol] 3.0 mmol/L Low 3.5-4.9 [facility] Comment on above: Performed By: #### L [id number] ####[facility] ([facility] [place] [address] Sodium [Moles/Vol] 135 mmol/L Low 138.0-146.0 [facility] Comment on above: Performed By: #### L [id number] ####[facility] ([facility])[address] [place] [address] CO2 [Moles/Vol] 29.0 mmol/L Normal 21.0-29.0 [facility] [place] Comment on above: Performed By: #### L [id number] ####[facility] ([facility])[address] [place] [address] Glucose [Mass/Vol] 122 mg/dL High 70-105 [facility] Comment on above: Performed By: #### L [id number] ####[facility] ([facility])[address] [place] [address] HCO3 (Bld) [Moles/Vol] 27.9 mmol/L Normal 23.0-28.0 [facility] Comment on above: Performed By: #### L [id number] ####[facility] ([facility])[address] [place] [address] Hematocrit (Bld) [Volume fraction] 34 % Low 38-51 [facility] Comment on above: Performed By: #### L [id number] ####[facility] ([facility])[address] [place] [address] Hemoglobin (Bld) [Mass/Vol] 11.6 g/dL Low 12.0-17.0 [facility] Comment on above: Performed By: #### L [id number] ####[facility] ([facility])[address] [place] [address] POCT BASE EXCESS 4.0 mmol/L High -2.0-3.0 [facility] [place] Comment on above: Performed By: #### L [id number] ####[facility] ([facility])[address] [place] [address] POCT IONIZED CALCIUM 1.11 mmol/L Low 1.12-1.32 [facility] Comment on above: Performed By: #### L [id number] ####[facility] ([facility])[address] [place] [address] POCT PCO2 38.6 mmHg Low 41.0-51.0 [facility] Comment on above: Performed By: #### L [id number] ####[facility] ([facility])[address] [address] POCT PH 7.47 High 7.31-7.41 [facility] Comment on above: Performed By: #### L [id number] ####[facility] ([facility])[address] [address] POCT PO2 284 mmHg High 80-105 [facility] Comment on above: Performed By: #### L [id number] ####[facility] [address] POCT SO2 100 % High 95-98 [facility] Comment on above: Performed By: #### L [id number] ####[facility] ([facility] [place] [address] Potassium [Moles/Vol] 3.1 mmol/L Low 3.5-4.9 [facility] Comment on above: Performed By: #### L [id number] ####[facility] ([facility])[address] [place] [address] Sodium [Moles/Vol] 137 mmol/L Low 138.0-146.0 [facility] Comment on above: Performed By: #### L [id number] ####[facility] ([facility])[address] [place] [address] PROTIME-INRon 09-20-2023 INR IN PPP BY COAGULATION ASSAY 1.17 High 0.90-1.10 [facility] Comment on above: Result Comment: ACCC [...] CHEST 1995;[id number]. Performed By: #### L [id number] ####[facility] ([facility])[address] [place] [address] PROTHROMBIN TIME (PT) IN PPP BY COAGULATION ASSAY 14.9 Seconds High 12.3-14.8 [facility] Comment on above: Performed By: #### L [id number] ####[facility] ([facility])[address] [place] [address] TISSUE CULTUREon 09-20-2023 GRAM STAIN RESULT Normal [facility] Comment on above: Order Comment: Pre-o p diagnosis:Peripheral artery disease (CMS/HCC) [I73.9]Rare Growth Skin Rita Result Comment: Many Polymorphonuclear leukocytesNo organisms seen Performed By: #### L [id number] ####[facility] ([facility])[address] [place] [address] 30on 09-19-2023 30 Normal [facility] ANESon 09-19-2023 ANES Normal [facility] BASIC METABOLIC PANELon 09-09 Anion gap [Moles/Vol] 7 mmol/L Normal 7-20 [facility] Comment on above: Performed By: #### L [id number] ####[facility] ([facility])[address] [facility] [place] [address] Calcium [Mass/Vol] 8.8 mg/dL Normal 8.6-10.3 [facility] Comment on above: Performed By: #### L [id number] ####[facility] ([employer])[address] [place] [address] Chloride [Moles/Vol] 103 mmol/L Normal 98-107 [facility] Comment on above: Performed By: #### L [id number] ####[facility] ([facility])[address] [place] [address] CO2 [Moles/Vol] 28 mmol/L Normal 21-31 [facility] Comment on above: Performed By: #### L [id number] ####[facility] ([facility])[address] [place] [address] Creatinine [Mass/Vol] 0.46 mg/dL Low 0.70-1.30 [facility] Comment on above: Performed By: #### L [id number] ####[facility] ([facility])[address] [place] [address] GLOMERULAR FILTRATION RATE ML/MIN/1.73 SQ M.PREDICTED 108.4 mL/min/1.73m*2 Normal >60.0 [facility] Comment on above: Result Comment: [facility]???s estimated glomerular filtration rate (eGFR) will [...] of individuals. Performed By: #### L [id number] ####[facility] ([facility])[address] [place] [address] Glucose [Mass/Vol] 166 mg/dL High 70-100 [facility] Comment on above: Performed By: #### L [id number] ####[facility] ([facility])[address] [place] [address] Potassium [Moles/Vol] 3.8 mmol/L Normal 3.5-5.1 [facility] Comment on above: Performed By: #### L [id number] ####[facility] ([facility])[address] [place] [address] Sodium [Moles/Vol] 134 mmol/L Low 136-145 [facility] Comment on above: Performed By: #### L [id number] ####[facility] ([facility] [place] [address] Urea nitrogen [Mass/Vol] 18 mg/dL Normal 7-25 [facility] Comment on above: Performed By: #### L [id number] ####[facility] ([facility] [place] [address] UREA NITROGEN/CREATININE (MASS RATIO) IN SER/PLAS 39.1 Normal [facility] Comment on above: Performed By: #### L [id number] ####[facility] ([facility] [place] [address] CBC WITH AUTO DIFFERENTIALon 09-19-2023 Basophils (Bld) [#/Vol] 0.00 10*3/uL Normal 0.00-0.20 [facility] Comment on above: Performed By: #### L [id number] ####[facility] ([facility] [place] [address] Basophils/100 WBC (Bld) 0.0 % Normal 0.0-1.0 [facility] Comment on above: Performed By: #### L [id number] ####[facility] ([facility])[address] [place] [address] Eosinophils (Bld) [#/Vol] 0.00 10*3/uL Normal 0.00-0.50 [facility] Comment on above: Performed By: #### L [id number] ####[facility] ([facility])[address] [place] [address] Eosinophils/100 WBC (Bld) 0.0 % Normal 0.0-6.0 [facility] Comment on above: Performed By: #### L [id number] ####[facility] ([facility])[address] [place] [address] Erythrocyte distribution width (RBC) [Ratio] 18.8 % High 11.5-15.0 [facility] Comment on above: Performed By: #### L [id number] ####[facility] ([facility])[address] [address] ERYTHROCYTE MEAN CORPUSCULAR HEMOGLOBIN CONCENTRATION (G/DL) BY AUTOMATED 32.5 g/dL Normal 32.0-35.0 [facility] Comment on above: Performed By: #### L [id number] ####[facility] ([facility])[address] [place] [address] Hematocrit (Bld) [Volume fraction] 24.9 % Low 39.0-55.0 [facility] Comment on above: Performed By: #### L [id number] ####[facility] ([facility])[address] [place] [address] Hemoglobin (Bld) [Mass/Vol] 8.1 g/dL Low 13.0-17.0 [facility] Comment on above: Performed By: #### L [id number] ####[facility] ([facility])[address] [place] [address] Immature granulocytes (Bld) [#/Vol] 0.02 10*3/uL Normal 0.00-0.20 [facility] Comment on above: Performed By: #### L [id number] ####[facility] ([facility])[address] [place] [address] Immature granulocytes/100 WBC (Bld) 0.4 % Normal 0.0-1.0 [facility] Comment on above: Performed By: #### L [id number] ####[facility] ([facility])[address] [address] Lymphocytes (Bld) [#/Vol] 0.14 10*3/uL Low 1.20-4.00 [facility] Comment on above: Performed By: #### L [id number] ####[facility] ([facility])[address] [place] [address] Lymphocytes/100 WBC (Bld) 2.7 % Low 20.0-45.0 [facility] Comment on above: Performed By: #### L [id number] ####[facility] ([facility])[address] [place] [address] MCH (RBC) [Entitic mass] 27.3 pg Normal 27.0-33.0 [facility] Comment on above: Performed By: #### L [id number] ####[facility] ([facility] [place] [address] MCV (RBC) [Entitic vol] 83.8 fL Normal 82.0-98.0 [facility] Comment on above: Performed By: #### L [id number] ####[facility] ([facility] [place] [address] Monocytes (Bld) [#/Vol] 0.09 10*3/uL Low 0.10-1.00 [facility] Comment on above: Performed By: #### L [id number] ####[facility] ([facility])[address] [place] [address] Monocytes/100 WBC (Bld) 1.8 % Low 5.0-12.0 [facility] Comment on above: Performed By: #### L [id number] ####[facility] ([facility])[address] [place] [address] Neutrophils (Bld) [#/Vol] 4.87 10*3/uL Normal 1.60-7.60 [facility] Comment on above: Performed By: #### L [id number] ####[facility] ([facility])[address] [place] [address] Neutrophils/100 WBC (Bld) 95.1 % High 40.0-72.0 [facility] Comment on above: Performed By: #### L [id number] ####[facility] ([facility])[address] [place] [address] NRBC (PER 100 WBCS) BY AUTOMATED COUNT 0.0 % Normal 0 [facility] Comment on above: Performed By: #### L [id number] ####[facility] ([facility])[address] [place] [address] PLATELETS (10*3/UL) IN BLOOD AUTOMATED COUNT 105 10*3/uL Low 150-400 [facility] Comment on above: Performed By: #### L [id number] ####[facility] ([facility])[address] [place] [address] RBC (Bld) [#/Vol] 2.97 10*6/uL Low 4.20-5.70 [facility] Comment on above: Performed By: #### L [id number] ####[facility] ([facility])[address] [place] [address] WBC (Bld) [#/Vol] 5.12 10*3/uL Normal 4.00-10.60 [facility] Comment on above: Performed By: #### L [id number] ####[facility] ([facility])[address] [place] [address] MAGNESIUMon 09-19-2023 Magnesium [Mass/Vol] 1.7 mg/dL Low 1.9-2.7 [facility] Comment on above: Performed By: #### L [id number] ####[facility] ([facility])[address] [place] [address] MRSA/MSSA DNA NASALon 2022 MRSA DNA Negative Normal Negative [facility] Comment on above: Order Comment: Testi [...] preclude nasal colonization. Performed By: #### L [id number] ####[facility] ([facility])[address] [place] [address] MSSA DNA Negative Normal Negative [facility] Comment on above: Order Comment: Testi [...] preclude nasal colonization. Performed By: #### L [id number] ####[facility] ([facility])[address] [facility] [place] [address] PHOSPHORUSon 09-19-2023 Magnesium [Mass/Vol] 3.1 mg/dL Normal 2.5-5.0 [facility] Comment on above: Performed By: #### L [id number] ####[facility] ([facility])[address] [facility] [place] [address] POCT GLUCOSE METER UNSOLICIT ED RESULTSon 09-19-2023 Glucose [Mass/Vol] 244 mg/dL High 70-105 [facility] Comment on above: Order Comment: Waive d Testing in the ED is performed under the ED CLIA certificate #[id number]. Result Comment: [email or web address] Performed By: #### L [id number] ####[facility] ([facility])[address] [facility] [place] [address] Glucose [Mass/Vol] 140 mg/dL High 70-105 [facility] Comment on above: Order Comment: Waive d Testing in the ED is performed under the ED CLIA certificate #[id number]. Result Comment: [email or web address] Performed By: #### L [id number] ####[facility] ([facility])[address] [facility] [place] [address] Glucose [Mass/Vol] 192 mg/dL High 70-105 [facility] Comment on above: Order Comment: Waive d Testing in the ED is performed under the ED CLIA certificate #[id number]. Result Comment: [email or web address] [email or web address] Performed By: #### L [id number] ####[facility] ([facility])[address] [place] [address] Glucose [Mass/Vol] 163 mg/dL High 70-105 [facility] Comment on above: Order Comment: Waive d Testing in the ED is performed under the ED CLIA certificate #[id number]. Result Comment: elac theodore Performed By: #### L [id number] ####[facility] ([facility])[address] [place] [address] TYPE AND SCREENon 09-19-2023 AB SCREEN Negative Normal [facility] Comment on above: Performed By: #### L [id number] ####[facility], ABO group Nom (Bld) O Normal [facility] Comment on above: Performed By: #### L [id number] ####[facility], RH TYPE IN BLOOD Positive Normal [facility] Comment on above: Performed By: #### L [id number] ####[facility], 30on 09-18-2023 30 Normal [facility] APTTon 09-18-2023 ACTIVATED PARTIAL THROMBOPLASTIN TIME IN PPP BY COAGULATION ASSAY 35.0 Seconds Normal 25.0-35.0 [facility] Comment on above: Result Comment: Clin ical significance of the APTT is questionable in the presence of heparin. Performed By: #### L [id number] ####[facility] ([facility])[address] [place] [address] BASIC METABOLIC PANELon 09-09 Anion gap [Moles/Vol] 8 mmol/L Normal 7-20 [facility] Comment on above: Performed By: #### L [id number] ####[facility] ([facility])[address] [place] [address] Calcium [Mass/Vol] 8.4 mg/dL Low 8.6-10.3 [facility] Comment on above: Performed By: #### L [id number] ####[facility] ([facility])[address] [place] [address] Chloride [Moles/Vol] 99 mmol/L Normal 98-107 [facility] Comment on above: Performed By: #### L [id number] ####[facility] ([facility])[address] [place] [address] CO2 [Moles/Vol] 28 mmol/L Normal 21-31 [facility] Comment on above: Performed By: #### L [id number] ####[facility] ([facility])[address] [place] [address] Creatinine [Mass/Vol] 0.52 mg/dL Low 0.70-1.30 [facility] Comment on above: Performed By: #### L [id number] ####[facility] ([facility])[address] [place] [address] GLOMERULAR FILTRATION RATE ML/MIN/1.73 SQ M.PREDICTED 104.5 mL/min/1.73m*2 Normal >60.0 [facility] Comment on above: Result Comment: [facility]???s estimated glomerular filtration rate (eGFR) will [...] of individuals. Performed By: #### L [id number] ####[facility] ([facility])[address] [place] [address] Glucose [Mass/Vol] 193 mg/dL High 70-100 [facility] Comment on above: Performed By: #### L [id number] ####[facility] [place] [address] Potassium [Moles/Vol] 3.7 mmol/L Normal 3.5-5.1 [facility] Comment on above: Performed By: #### L [id number] ####[facility] ([facility])[address] [place] [address] Sodium [Moles/Vol] 131 mmol/L Low 136-145 [facility] Comment on above: Performed By: #### L [id number] ####[facility] ([facility])[address] [place] [address] Urea nitrogen [Mass/Vol] 19 mg/dL Normal 7-25 [facility] Comment on above: Performed By: #### L [id number] ####[facility] ([facility])[address] [place] [address] UREA NITROGEN/CREATININE (MASS RATIO) IN SER/PLAS 36.5 Normal [facility] Comment on above: Performed By: #### L [id number] ####[facility] ([facility])[address] [place] [address] CBC WITH AUTO DIFFERENTIALon 09-18-2023 Basophils (Bld) [#/Vol] 0.00 10*3/uL Normal 0.00-0.20 [facility] Comment on above: Performed By: #### L [id number] ####[facility] ([facility])[address] [place] [address] Basophils/100 WBC (Bld) 0.0 % Normal 0.0-1.0 [facility] Comment on above: Performed By: #### L [id number] ####[facility] ([facility])[address] [place] [address] Eosinophils (Bld) [#/Vol] 0.00 10*3/uL Normal 0.00-0.50 [facility] Comment on above: Performed By: #### L [id number] ####[facility] [place] [address] Eosinophils/100 WBC (Bld) 0.0 % Normal 0.0-6.0 [facility] Comment on above: Performed By: #### L [id number] ####[facility] [place] [address] Erythrocyte distribution width (RBC) [Ratio] 19.1 % High 11.5-15.0 [facility] Comment on above: Performed By: #### L [id number] ####[facility] ([facility])[address] [place] [address] ERYTHROCYTE MEAN CORPUSCULAR HEMOGLOBIN CONCENTRATION (G/DL) BY AUTOMATED 31.9 g/dL Low 32.0-35.0 [facility] Comment on above: Performed By: #### L [id number] ####[facility] ([facility])[address] [place] [address] Hematocrit (Bld) [Volume fraction] 25.4 % Low 39.0-55.0 [facility] Comment on above: Performed By: #### L [id number] ####[facility] ([facility])[address] [place] [address] Hemoglobin (Bld) [Mass/Vol] 8.1 g/dL Low 13.0-17.0 [facility] Comment on above: Performed By: #### L [id number] ####[facility] ([facility])[address] [place] [address] Immature granulocytes (Bld) [#/Vol] 0.03 10*3/uL Normal 0.00-0.20 [facility] Comment on above: Performed By: #### L [id number] ####[facility] ([facility])[address] [place] [address] Immature granulocytes/100 WBC (Bld) 0.3 % Normal 0.0-1.0 [facility] Comment on above: Performed By: #### L [id number] ####[facility] ([facility])[address] [place] [address] Lymphocytes (Bld) [#/Vol] 0.22 10*3/uL Low 1.20-4.00 [facility] Comment on above: Performed By: #### L [id number] ####[facility] ([facility])[address] [place] [address] Lymphocytes/100 WBC (Bld) 2.1 % Low 20.0-45.0 [facility] Comment on above: Performed By: #### L [id number] ####[facility] [place] [address] MCH (RBC) [Entitic mass] 26.8 pg Low 27.0-33.0 [facility] Comment on above: Performed By: #### L [id number] ####[facility] [place] [address] MCV (RBC) [Entitic vol] 84.1 fL Normal 82.0-98.0 [facility] Comment on above: Performed By: #### L [id number] ####[facility] ([facility])[address] [place] [address] Monocytes (Bld) [#/Vol] 0.12 10*3/uL Normal 0.10-1.00 [facility] Comment on above: Performed By: #### L [id number] ####[facility] ([facility])[address] [place] [address] Monocytes/100 WBC (Bld) 1.2 % Low 5.0-12.0 [facility] Comment on above: Performed By: #### L [id number] ####[facility], [place] [address] Neutrophils (Bld) [#/Vol] 9.88 10*3/uL High 1.60-7.60 [facility] Comment on above: Performed By: #### L [id number] ####[facility] [place] [address] Neutrophils/100 WBC (Bld) 96.4 % High 40.0-72.0 [facility] Comment on above: Performed By: #### L [id number] ####[facility] [place] [address] NRBC (PER 100 WBCS) BY AUTOMATED COUNT 0.0 % Normal 0 [facility] Comment on above: Performed By: #### L [id number] ####[facility] ([facility] [place] [address] PLATELETS (10*3/UL) IN BLOOD AUTOMATED COUNT 125 10*3/uL Low 150-400 [facility] Comment on above: Performed By: #### L [id number] ####[facility] ([facility])[address] [place] [address] RBC (Bld) [#/Vol] 3.02 10*6/uL Low 4.20-5.70 [facility] Comment on above: Performed By: #### L [id number] ####[facility] ([facility])[address] [place] [address] WBC (Bld) [#/Vol] 10.25 10*3/uL Normal 4.00-10.60 [facility] Comment on above: Performed By: #### L [id number] ####[facility] ([facility])[address] [place] [address] CTA AORTA AND BILATERAL ILIO FEMORAL RUNOFF W AND/OR WO IV CONTRASTon 09-18-2023 CTA AORTA AND BILATERAL ILIOFEMORAL RUNOFF W AND/OR WO IV CONTRAST Normal [facility] CTA CHEST W AND/OR WO IV CON TRASTon 09-18-2023 CTA CHEST W AND/OR WO IV CONTRAST Normal [facility] EDNURSon 09-18-2023 EDNURS Normal [facility] EDPROVon 09-18-2023 EDPROV Invalid Interpretation Code [facility] HPon 09-18-2023 HP Normal [facility] LACTIC ACID WITH 4 HOUR REFL EXon 09-18-2023 LACTATE (MMOL/L) IN SER/PLAS 1.6 mmol/L Normal 0.5-2.2 [facility] Comment on above: Performed By: #### L [id number] ####[facility] ([facility])[address] [place] [address] MAGNESIUMon 09-18-2023 Magnesium [Mass/Vol] 1.6 mg/dL Low 1.9-2.7 [facility] Comment on above: Performed By: #### L [id number] ####[facility] ([facility])[address] [facility] [place] [address] PHOSPHORUSon 09-18-2023 Magnesium [Mass/Vol] 3.1 mg/dL Normal 2.5-5.0 [facility] Comment on above: Performed By: #### L [id number] ####[facility] ([facility])[address] [place] [address] POCT GLUCOSE METER UNSOLICIT ED RESULTSon 09-18-2023 Glucose [Mass/Vol] 228 mg/dL High 70-105 [facility] Comment on above: Order Comment: Waive d Testing in the ED is performed under the ED CLIA certificate #[id number]. Result Comment: [email or web address] [email or web address] Performed By: #### L [id number] ####[facility] ([facility])[address] [place] [address] PROTIME-INRon 09-18-2023 INR IN PPP BY COAGULATION ASSAY 1.27 High 0.90-1.10 [facility] Comment on above: Result Comment: ACCC [...] CHEST 1995;108:231S-246S. Performed By: #### L [id number] ####[facility] ([facility])[address] [place] [address] PROTHROMBIN TIME (PT) IN PPP BY COAGULATION ASSAY 16.0 Seconds High 12.3-14.8 [facility] Comment on above: Performed By: #### L [id number] ####[facility] ([facility])[address] [place] [address] Follow-Upon 08-31-2023 Follow-Up Normal [facility] 36on 08-12-2023 36 Normal [facility] Telephoneon 08-12-2023 Telephone Normal [facility] Physician Referralon 023 Physician Referral [id number]#1.00TIF F [facility] Follow-Upon 06-20-2023 Follow-Up [facility] Follow-Upon 05-16-2023 Follow-Up [facility] Consent for Treatmenton 04-11 Consent for Treatment [id number]#1.00CD: 127 [facility] Heart and Vascular Office/Cl inic Noteon 05-09-2023 Heart and Vascular Office/Clinic Note [facility] Comment on above: Result Comment: Elec tronically Signed By: Vickey WISE, Erwin Evans\.br\Date and Time Signed: 05/09/23 09:55 EDT Consent for Anesthesiaon Consent for Anesthesia [id number]#1.00C D:127 [facility] IntraOperative Documentson 0 04-19-2023 IntraOperative Documents [id number]#1.00CD: 127 [facility] IntraOperative Documentson 0 04-15-2023 IntraOperative Documents [id number]#1.00CD :127 [facility] Operative Reporton Operative Report [facility] Comment on above: Result Comment: Elec tronically Signed By: Vickey WISE, Erwin Evans\.br\Date and Time Signed: 04/14/23 12:35 EDT Progress Note-Physicianon Progress Note-Physician Normal [facility] Comment on above: Result Comment: Elec tronically Signed By: MD Siri, Jose F Payan\.br\Date and Time Signed: 04/14/23 19:33 EDT Progress Note-Physician Normal [facility] Comment on above: Result Comment: Elec tronically Signed By: MD Horner Ahmad F\.br\Date and Time Signed: 04/14/23 19:28 EDT Consent for Anesthesiaon Consent for Anesthesia [id number]#1.00C D:127 Normal [facility] Discharge Instructionson Discharge Instructions [id number]#1.00C D:127 Normal [facility] Main OR Intraoperative Recor don 04-13-2023 Main OR Intraoperative Record Normal [facility] Capillary Glucose POCon Glucose [Mass/Vol] 97 mg/dL Normal 55-99 [facility] Comment on above: Result Comment: Sayra feldman MeterNo Coverage Given Performed By: #### 2 [id number] ####[facility] [address] [place] [address] Consent for Procedure/Surger yon 04-11-2023 Consent for Procedure/Surgery [id number]#1.00CD :127 Normal [facility] Consent for Treatmenton Consent for Treatment [id number]#1.00CD: 127 Normal [facility] Discharge Instructionson Discharge Instructions Normal [facility] Comment on above: Result Comment: Elec tronically Signed By: Rakesh GUARDADO, Karissa M\.br\Date and Time Signed: 04/11/23 15:05 EDT H&P Updateon 04-11-2023 H&P Update [id number]#1.00CD :127 Normal [facility] Main OR PACU I Recordon Main OR PACU I Record Normal [facility] Main OR Preoperative Recordo n 04-11-2023 Main OR Preoperative Record Normal [facility] Monitor Recordon 04-11-2023 Monitor Record [id number]#1.00CD :127 Normal [facility] PT & PTTon 04-11-2023 aPTT Coag (PPP) [Time] 38.1 second(s) High 25.1-36.5 [facility] Comment on above: Result Comment: Para [...] the same coagulation reagent and instrumentation as [place]. Currently there are no coagulation studies available worldwide for children to 14 days, and no normal ranges. Heparin therapeutic range (represented by Anti-Factor Xa activity of 0.2 - 0.4 U/mL) corresponds to PTT of 56.6 - 109.0 sec. Performed By: #### 1 [id number] ####[facility] [place] [address] INR Coag (PPP) [Relative time] 1.2 {INR} Invalid Interpretation Code [facility] Comment on above: Result Comment: INR results are specifically intended to assess patients stabilized on long-term Anticoagulation therapy suggested INR?s ?Less Intensive Anticoagulation? 2.0 ? 3.0Conventional Range 3.0 ? 4.5 Performed By: #### 1 [id number] ####[facility] [address] [place] [address] PT Coag (PPP) [Time] 13.3 second(s) High 9.4-12.5 [facility] Comment on above: Result Comment: 15 [...] the same coagulation reagent and instrumentation as [place]. Currently there are no coagulation studies available worldwide for children to 14 days, and no normal ranges. Performed By: #### 1 [id number] ####[facility] [address] [place] [address] Patient Education - Texton 0 04-11-2023 Patient Education - Text Normal [facility] BMPon 04-08-2023 Creatinine [Mass/Vol] 0.6 mg/dL Normal 0.5-1.3 [facility] Comment on above: Performed By: #### 2 770124, 6661701, 2802895, 5633964, 45613446, 97531348 ####[facility] [address] [place] [address] Urea nitrogen [Mass/Vol] 27 mg/dL High 5-21 [facility] Comment on above: Performed By: #### 2 449607, 1807924, 1556704, 7332141, 97872961, 78157540 ####[facility] [address] [place] [address] Urea nitrogen/Creatinine [Mass ratio] 45 No Units High 10-20 [facility] Comment on above: Performed By: #### 2 371682, 0850092, 2303184, 3253645, 11749261, 95794215 ####[facility] [address] [place] [address] Anion gap [Moles/Vol] 9 mmol/L Normal 6-16 [facility] Comment on above: Performed By: #### 2 422269, 2851381, 0147287, 5021655, 31635235, 92260596 ####[facility] [address] [place] [address] Calcium [Mass/Vol] 8.5 mg/dL Low 8.9-11.1 [facility] Comment on above: Performed By: #### 2 905093, 3997178, 0274497, 3769719, 13524297, 54966839 ####[facility] [address] [place] [address] Chloride [Moles/Vol] 99 mmol/L Low 101-111 [facility] Comment on above: Performed By: #### 2 448505, 7890939, 5758828, 8716735, 33528189, 19078482 ####[facility] [address] [place] [address] CO2 [Moles/Vol] 28 mmol/L Normal 21-31 [facility] Comment on above: Performed By: #### 2 182475, 8441729, 7382323, 4688618, 47210860, 06627010 ####[facility] [address] [place] [place] [address] Glucose [Mass/Vol] 163 mg/dL Normal 55-199 [facility] Comment on above: Result Comment: If t his glucose result represents a fasting glucose, interpretation should refer to the following reference range: 55-99 mg/dL Performed By: #### 2 941590, 4241181, 7774579, 2448475, 65170805, 83081204 ####[facility] [address] [place] [address] Potassium [Moles/Vol] 3.7 mmol/L Normal 3.5-5.3 [facility] Comment on above: Performed By: #### 2 039898, 9016363, 2092694, 2362545, 31084832, 27640048 ####[facility] [address] [place] [address] Sodium [Moles/Vol] 132 mmol/L Low 135-145 [facility] Comment on above: Performed By: #### 2 768777, 6251074, 5982575, 9064738, 54510338, 57810683 ####[facility] [address] [place] [address] CBC w/Indiceson 04-08-2023 Erythrocyte distribution width (RBC) [Ratio] 20.5 % High 10.9-14.2 [facility] Comment on above: Performed By: #### 2 158548, 1386512, 8497139, 0779227, 47696749, 94936161 ####[facility] [address] [place] [address] Hematocrit (Bld) [Volume fraction] 31.4 % Low 37.7-49.0 [facility] Comment on above: Performed By: #### 2 527947, 4527857, 4012660, 9433951, 60747882, 27778437 ####[facility] [address] [place] [address] Hemoglobin (Bld) [Mass/Vol] 10.2 g/dL Low 13.5-17.5 [facility] Comment on above: Performed By: #### 2 037049, 5275381, 6912935, 9438235, 98969479, 05404808 ####[facility] [address] [place] [address] MCH (RBC) [Entitic mass] 30.3 pg Normal 27.0-34.0 [facility] Comment on above: Performed By: #### 2 343480, 8432534, 1679395, 2795114, 98847742, 57975562 ####[facility] [address] [place] [address] MCHC (RBC) [Mass/Vol] 32.6 g/dL Normal 31.4-36.0 [facility] Comment on above: Performed By: #### 2 395765, 1322923, 2010315, 2208343, 82693951, 82282744 ####[facility] [address] [place] [address] MCV (RBC) [Entitic vol] 92.9 fL Normal 80.0-100.0 [facility] Comment on above: Performed By: #### 2 360261, 5958578, 0322383, 8818865, 80789475, 32633019 ####[facility] [address] [place] [address] Platelet mean volume (Bld) [Entitic vol] 9.2 fL Normal 6.4-10.8 [facility] Comment on above: Performed By: #### 2 234309, 4059432, 7666871, 0590459, 62512203, 41249749 ####[facility] [address] [place] [address] Platelets (Bld) [#/Vol] 156.0 E9/L Normal 150.0-500.0 [facility] Comment on above: Performed By: #### 2 168306, 5190299, 3104231, 0708386, 70118217, 14763723 ####[facility] [address] [place] [address] RBC (Bld) [#/Vol] 3.4 E12/L Low 4.3-5.9 [facility] Comment on above: Performed By: #### 2 273930, 0779046, 5519479, 7065012, 25646365, 49040247 ####[facility] [address] [place] [address] WBC corrected for nucl RBC Auto (Bld) [#/Vol] 3.6 E9/L Low 4.0-11.0 [facility] Comment on above: Performed By: #### 2 200092, 0738304, 5176726, 2787660, 84967526, 53504398 ####[facility] [address] [place] [address] CHEMISTRYOrdered By: SYSTEM SYSTEM on 04-08-2023 Anion gap [Moles/Vol] 9 mmol/L Normal 6 - 16 mEq/L F [facility] Remisol Calcium [Mass/Vol] 8.5 mg/dL Low 8.9 [...] s High 9.4 - 1 2.5 second(s) [place] Auto Coag Consent for Treatmenton 03-12 Consent for Treatment [id number]#1.00CD: 127 Normal [facility] Formson 04-08-2023 Forms [id number]#1.00CD :127 Normal [facility] HEMATOLOGYOrdered By: Fabi Massey on 04-08-2023 [...] 04-08-2023 Magnesium [Mass/Vol] 1.9 mg/dL Normal 1.3-2.4 [facility] Comment on above: Performed By: #### 2 314351, 1481742, 2381777, 0051511, 88553399, 15567706 ####[facility] [address] [place] [address] PT & PTTon 04-08-2023 aPTT Coag (PPP) [Time] 40.6 second(s) High 25.1-36.5 [facility] Comment on above: Result Comment: Para [...] the same coagulation reagent and instrumentation as [place]. Currently there are no coagulation studies available worldwide for children to 14 days, and no normal ranges. Heparin therapeutic range (represented by Anti-Factor Xa activity of 0.2 - 0.4 U/mL) corresponds to PTT of 56.6 - 109.0 sec. Performed By: #### 2 366709, 6034340, 3551694, 6980439, 36690849, 79718104 ####[facility] [address] [place] [address] INR Coag (PPP) [Relative time] 1.7 {INR} Invalid Interpretation Code [facility] Comment on above: Result Comment: INR results are specifically intended to assess patients stabilized on long-term Anticoagulation therapy suggested INR?s ?Less Intensive Anticoagulation? 2.0 ? 3.0Conventional Range 3.0 ? 4.5 Performed By: #### 2 442010, 3607845, 0665046, 8181636, 51717386, 42953607 ####[facility] [address] [place] [address] PT Coag (PPP) [Time] 19.0 second(s) High 9.4-12.5 [facility] Comment on above: Result Comment: 15 [...] the same coagulation reagent and instrumentation as [place]. Currently there are no coagulation studies available worldwide for children to 14 days, and no normal ranges. Performed By: #### 2 241765, 0498104, 2988875, 5657319, 88660419, 28425127 ####[facility] [address] [place] [address] Phosphoruson 04-08-2023 Phosphate [Mass/Vol] 2.7 mg/dL Normal 1.9-4.6 [facility] Comment on above: Performed By: #### 2 756866, 7453249, 5320977, 7103131, 20254918, 87384993 ####[facility] [address] [place] [address] Physician Orderon 04-08-2023 Physician Order [id number]#1.00CD :127 Normal [facility] eGFRon 04-08-2023 GFR/1.73 sq M.predicted among non-blacks MDRD (S/P/Bld) [Vol rate/Area] 100 mL/min/1.73 m2 Normal >=59 [facility] Comment on above: Order Comment: Order added by Discern Expert. Result Comment: Manager Assembly alen kidney disease could be indicated at eGFR's of less than 60 mL/min/1.73m2. Kidney failure is indicated at less than 15 mL/min/1.73m2. Performed By: #### 2 372594, 7156971, 2738435, 0115248, 24289784, 75409324 ####[facility] [address] [place] [address] Formson 04-07-2023 Forms [id number]#1.00CD: 127 Normal [facility] Orders Officeon 04-07-2023 Orders Office [id number]#1.00CD: 127 Normal [facility] Path. Reviewon 04-05-2023 Path Review Anemia with anisocytosis, microcytes and mild polychromasia. Clinical correlation and iron studies are recommended to determine etiology as clinically indicated. Invalid Interpretation Code [facility] Comment on above: Order Comment: Order Added by Discern Expert. Performed By: #### 2 644463, 1030629, 32224710, 63770952, 0968828, 37466415 ####[facility] [address] [place] [address] Auto Diffon 04-04-2023 Basophils/100 WBC (Bld) 0.9 % Normal 0.0-2.0 [facility] Comment on above: Order Comment: Order Added by Discern Expert. Performed By: #### 2 727523, 4082266, 28664193, 27628256, 1655337, 85994876 ####[place] [place] [address] Basophils/Leukocytes Auto (Bld) [Pure # fraction] 0.0 E9/L Normal 0.0-0.2 [facility] Comment on above: Order Comment: Order Added by Discern Expert. Performed By: #### 2 697136, 4715623, 24515846, 35130300, 7659039, 49649998 ####[facility] [address] [place] [address] Eosinophils/100 WBC (Bld) 1.6 % Normal 0.0-8.0 [facility] Comment on above: Order Comment: Order Added by Discern Expert. Performed By: #### 2 077640, 2380173, 93531319, 78345883, 0916424, 25497358 ####[address] [address] Eosinophils/Leukocytes Auto (Bld) [Pure # fraction] 0.1 E9/L Normal 0.0-0.5 [facility] Comment on above: Order Comment: Order Added by Discern Expert. Performed By: #### 2 627414, 9880533, 95821217, 72097128, 6098847, 70099209 ####[address] [address] Lymphocytes/100 WBC (Bld) 11.7 % Low 14.0-50.0 [facility] Comment on above: Order Comment: Order Added by Discern Expert. Performed By: #### 2 552697, 3058346, 84636842, 51878086, 8939626, 53847185 ####[address] [address] Lymphocytes/Leukocytes Auto (Bld) [Pure # fraction] 0.4 E9/L Low 1.0-4.0 [facility] Comment on above: Order Comment: Order Added by Discern Expert. Performed By: #### 2 278114, 5394563, 66236714, 47940398, 0748622, 51053197 ####[address] [address] Monocytes/100 WBC (Bld) 13.1 % Normal 4.0-14.0 [facility] Comment on above: Order Comment: Order Added by Discern Expert. Performed By: #### 2 030957, 3066310, 92301571, 59775929, 0248603, 50707835 ####[address] [address] Monocytes/Leukocytes Auto (Bld) [Pure # fraction] 0.5 E9/L Normal 0.2-1.0 [facility] Comment on above: Order Comment: Order Added by Discern Expert. Performed By: #### 2 154930, 7276877, 99919264, 68259971, 3065876, 52922931 ####[facility] [address] [place] [address] Neutrophils/100 WBC (Bld) 72.7 % Normal 36.0-75.0 [facility] Comment on above: Order Comment: Order Added by Discern Expert. Performed By: #### 2 818177, 7018986, 94601579, 62840343, 4896178, 15387984 ####[facility] [address] [place] [address] Neutrophils/Leukocytes Auto (Bld) [Pure # fraction] 2.7 E9/L Normal 2.0-7.5 [facility] Comment on above: Order Comment: Order Added by Discern Expert. Performed By: #### 2 073180, 4913404, 52741101, 73090354, 4832455, 74616237 ####[facility] [address] [place] [address] BMPon 04-04-2023 Anion gap [Moles/Vol] 10 mmol/L Normal 6-16 [facility] Comment on above: Performed By: #### 2 102815, 9294349, 70163974, 72262865, 0051608, 72621647 ####[facility] [address] [place] [address] Calcium [Mass/Vol] 9.2 mg/dL Normal 8.9-11.1 [facility] Comment on above: Performed By: #### 2 239847, 0393547, 37684249, 69077578, 4064738, 56716972 ####[facility] [address] [place] [address] Chloride [Moles/Vol] 102 mmol/L Normal 101-111 [facility] Comment on above: Performed By: #### 2 143261, 6768065, 46754963, 01082902, 1521517, 59793109 ####[facility] [address] [place] [address] CO2 [Moles/Vol] 28 mmol/L Normal 21-31 [facility] Comment on above: Performed By: #### 2 314070, 8340563, 01751308, 29054955, 8241372, 54081512 ####[facility] [address] [place] [address] Creatinine [Mass/Vol] 0.5 mg/dL Normal 0.5-1.3 [facility] Comment on above: Performed By: #### 2 994630, 2451467, 59471067, 34103104, 3297106, 01048803 ####[facility] [address] [place] [address] Glucose [Mass/Vol] 171 mg/dL Normal 55-199 [facility] Comment on above: Result Comment: If t his glucose result represents a fasting glucose, interpretation should refer to the following reference range: 55-99 mg/dL Performed By: #### 2 782140, 1410440, 69541746, 57907411, 5911962, 85082239 ####[facility] [address] [place] [address] Potassium [Moles/Vol] 3.8 mmol/L Normal 3.5-5.3 [facility] Comment on above: Performed By: #### 2 659548, 0366144, 40310432, 38155590, 3770656, 18071905 ####[facility] [address] [place] [address] Sodium [Moles/Vol] 136 mmol/L Normal 135-145 [facility] Comment on above: Performed By: #### 2 577152, 6170079, 12043571, 46221330, 2904541, 50388091 ####[facility] [address] [place] [address] Urea nitrogen [Mass/Vol] 34 mg/dL High 5-21 [facility] Comment on above: Performed By: #### 2 124817, 7716441, 83360965, 05656192, 3790375, 95021419 ####[facility] [address] [place] [address] Urea nitrogen/Creatinine [Mass ratio] 68 No Units High 10-20 [facility] Comment on above: Performed By: #### 2 055498, 8968973, 21987171, 11231261, 4183329, 59877181 ####[facility] [address] [place] [address] CBC w/ Auto Diffon 3 Erythrocyte distribution width (RBC) [Ratio] 22.1 % High 10.9-14.2 [facility] Comment on above: Performed By: #### 2 695439, 6588039, 55278206, 61526770, 5181868, 20138338 ####[place] [address] Hematocrit (Bld) [Volume fraction] 31.2 % Low 37.7-49.0 [facility] Comment on above: Performed By: #### 2 642376, 5541049, 38044454, 49812649, 8186100, 75545138 ####[facility] [address] [place] [address] Hemoglobin (Bld) [Mass/Vol] 10.1 g/dL Low 13.5-17.5 [facility] Comment on above: Performed By: #### 2 094854, 0263796, 24541156, 27223245, 8156252, 00064148 ####[address] [address] MCH (RBC) [Entitic mass] 30.3 pg Normal 27.0-34.0 [facility] Comment on above: Performed By: #### 2 240541, 9497720, 39303607, 86625591, 3974431, 35999860 ####[address] [address] MCHC (RBC) [Mass/Vol] 32.4 g/dL Normal 31.4-36.0 [facility] Comment on above: Performed By: #### 2 017536, 0548036, 40467775, 29949071, 0353421, 26826202 ####[address] [place] [address] MCV (RBC) [Entitic vol] 93.6 fL Normal 80.0-100.0 [facility] Comment on above: Performed By: #### 2 010235, 3844880, 02937225, 18170970, 8664616, 34591076 ####[address] [address] Platelet mean volume (Bld) [Entitic vol] 8.5 fL Normal 6.4-10.8 [facility] Comment on above: Performed By: #### 2 918313, 5868096, 59512297, 85507442, 0788208, 28478844 ####[address] [address] Platelets (Bld) [#/Vol] 170.0 E9/L Normal 150.0-500.0 [facility] Comment on above: Performed By: #### 2 338190, 9378412, 45213642, 29704550, 4265993, 66131192 ####[address] [address] RBC (Bld) [#/Vol] 3.3 E12/L Low 4.3-5.9 [facility] Comment on above: Performed By: #### 2 729074, 5349387, 22194557, 73905109, 2902833, 05098301 ####[address] [address] WBC corrected for nucl RBC Auto (Bld) [#/Vol] 3.7 E9/L Low 4.0-11.0 [facility] Comment on above: Performed By: #### 2 634301, 5702904, [id number], 01959402, 3878414, [id number] ####[address] [address] CHEMISTRYOrdered By: SYSTEM SYSTEM on 04-04-2023 Anion [...] 106 mL/min/1.73 m2 Normal >=59mL/min/1 .73 m2 [place] Chem S Glucose [Mass/Vol] 171 mg/dL Normal [...] for Treatmenton 03-11 Consent for Treatment [id number]#1.00CD: 127 Normal [facility] Consent for Treatment [id number]#1.00CD: 127 Normal [facility] HEMATOLOGYOrdered By: Damian Peterson on 04-04-2023 Anisocytosis Ql (Bld) Present (04/04/23 12:24 PM) Normal [place] HemeManSS Erythrocyte distribution width (RBC) [Ratio] 22.1 [...] 04-04-2023 Heart and Vascular Office/Clinic Note Normal [facility] Comment on above: Result Comment: Elec tronically Signed By: Vickey WISE, Erwin Evans\.br\Date and Time Signed: 04/04/23 11:48 EDT Morphon 04-04-2023 Anisocytosis Ql (Bld) Present Normal Fis [facility] Comment on above: Order Comment: Order Added by Discern Expert. Performed By: #### 2 291792, 8598471, 74430645, 02731675, 4443986, 59083613 ####[facility] [address] [place] [address] Hypochromia Auto Ql (Bld) Present Normal [facility] Comment on above: Order Comment: Order Added by Discern Expert. Performed By: #### 2 037007, 2622766, 51798622, 18492566, 7377844, 85912321 ####[facility] [address] [place] [address] Morphology Jah (Bld) [Interp] See Morphology Normal [facility] Comment on above: Order Comment: Order Added by Discern Expert. Performed By: #### 2 861788, 9224265, 45659978, 87323646, 1754363, 75370297 ####[facility] [address] [place] [address] Polychromasia LM Ql (Bld) Present Normal [facility] Comment on above: Order Comment: Order Added by Discern Expert. Performed By: #### 2 500895, 1438314, 67011714, 01155308, 4836942, 83218340 ####[facility] [address] [place] [address] Rouleaux LM Ql (Bld) Present Normal Fish er [facility] Comment on above: Order Comment: Order Added by Discern Expert. Performed By: #### 2 180394, 6782968, 63161908, 27731498, 7413699, 37405908 ####[facility] [address] [place] [address] Schistocytes LM Ql (Bld) Present Normal [facility] Comment on above: Order Comment: Order Added by Discern Expert. Performed By: #### 2 208105, 9800221, 52792374, 82343709, 7249023, 23767905 ####[facility] [address] [place] [address] Spherocytes LM Ql (Bld) Present Normal [facility] Comment on above: Order Comment: Order Added by Discern Expert. Performed By: #### 2 704206, 1050801, 28484521, 39063209, 0609912, 62748631 ####[facility] [address] [place] [address] Outside Progress Noteon 03-11 Outside Progress Note [id number]#1.00CD :127 Normal [facility] eGFRon 04-04-2023 GFR/1.73 sq M.predicted among non-blacks MDRD (S/P/Bld) [Vol rate/Area] 106 mL/min/1.73 m2 Normal >=59 [facility] Comment on above: Order Comment: Order added by Discern Expert. Result Comment: Manager Assembly alen kidney disease could be indicated at eGFR's of less than 60 mL/min/1.73m2. Kidney failure is indicated at less than 15 mL/min/1.73m2. Performed By: #### 2 539545, 9386302, 69951332, 34112088, 8487015, 41879627 ####[facility] [address] [place] [address] Consent for Treatmenton Consent for Treatment [id number]#1.00CD: 127 Normal [facility] Heart and Vascular Office/Cl inic Noteon 03-17-2023 Heart and Vascular Office/Clinic Note Normal [facility] Comment on above: Result Comment: Elec tronically Signed By: Vickey WISE, Erwin Evans\.br\Date and Time Signed: 03/17/23 14:05 EDT Progress Note-Physicianon Progress Note-Physician [id number]#1.00CD:1 27 Normal [facility] Coding Queryon 03-15-2023 Coding Query Normal [facility] Progress Note-Physicianon Progress Note-Physician Normal [facility] Comment on above: Result Comment: Elec tronically Signed By: Katheryn WISE, Aiden\.br\Date and Time Signed: 03/15/23 20:46 EDT C Urineon 03-12-2023 Bacteria identified Cx Nom (U) Normal [facility] Comment on above: Performed By: #### 2 267086, [id number] ####[facility] [address] [place] [address] IntraOperative Documentson 0 03-11-2023 IntraOperative Documents [id number]#1.00CD :127 Normal [facility] .Interpretation:on 3 HCV Ab IA Ql Comment Invalid Interpretation Code [facility] Comment on above: Result Comment: Not infected with HCV unless early or acute infection issuspected (which may be delayed in an immunocompromisedindividual), or other evidence exists to indicate HCV infection.Performed at: [facility] [address] [place], [place] [id number] PhD Azar Luevano Performed By: #### 8 93576350, [id number], [id number], 1941165 ####[facility] [address] [place] [address] CHEMISTRYOrdered By: Lab ROP User on 03-10-2023 Glucose [Mass/Vol] 140 mg/dL High 55 - 99 mg/dL [place] POC Subsection Comment on above: Result Comment: Nuno MARIN POC Device SN [id number] Invalid Interpretation Code [facility] POC Subsection POC User ID [id number] Invalid Interpretation Code FT POC Subsection POC Username JOSE LUIS CAMPBELL Invalid Interpretation Code [facility] POC Subsection Glucose [Mass/Vol] 116 mg/dL High 55 - 99 mg/dL [place] POC Subsection Comment on above: Result Comment: Nuno MARIN POC Device SN [id number] Invalid Interpretation Code [facility] POC Subsection POC User ID [id number] Invalid Interpretation Code FT POC Subsection POC [...] POCon Glucose [Mass/Vol] 140 mg/dL High 55-99 [facility] Comment on above: Result Comment: Nuno MARIN Performed By: #### 2 [id number] ####[facility] [address] [place] [address] Glucose [Mass/Vol] 116 mg/dL High 55-99 [facility] Comment on above: Result Comment: Nuno aranda RN/ Performed By: #### 2 [id number] ####[facility] [address] [place] [address] Glucose [Mass/Vol] 83 mg/dL Normal 55-99 [facility] Comment on above: Result Comment: Nuno MARIN Performed By: #### 2 [id number] ####[facility] [address] [place] [address] Consent for Blood Transfusio non 03-10-2023 Consent for Blood Transfusion [id number]#1.00CD :127 Normal [facility] Discharge Instructionson Discharge Instructions [id number]#1.00CD :127 Normal [facility] Discharge Note-Nursingon Discharge Note-Nursing Normal [facility] HCV Antibody RFX to Quant PC Chai 03-10-2023 HCV IgG IA Ql Non-Reactive Invalid Interpretation Code Non Reactive [facility] Comment on above: Result Comment: Perf ormed at: [employer] [place], [place] [id number] PhD Azar Luevano Performed By: #### 8 [id number], [id number], [id number], 6631060 ####[facility] [address] [place] [address] Hep Bs Agon 03-10-2023 HBV surface Ag IA Ql Negative Invalid Interpretation Code Negative [facility] Comment on above: Result Comment: Perf ormed at: [employer] [address] [place], [place] [id number] PhD Azar Luevano Performed By: #### 8 [id number], [id number], [id number], [id number] ####[facility] [address] [place] [address] Inpatient Clinical Summaryon 03-10-2023 Inpatient Clinical Summary Normal [facility] Inpatient Patient Summaryon 03-10-2023 Inpatient Patient Summary Normal [facility] Interdisciplinary Note - Michelet e Manageron 03-10-2023 Interdisciplinary Note - Work Counselor Normal [facility] Comment on above: Result Comment: Elec tronically Signed By: Sonia Morejon\.br\Date and Time Signed: 03/10/23 14:25 EDT Lyteson 03-10-2023 Anion gap [Moles/Vol] 9 mmol/L Normal 6-16 [facility] Comment on above: Order Comment: line packet sent up to floor...[facility] 03/10/2023 04:24:28 EDT Performed By: #### 2 430241, 0077004 ####[facility] [address] [place] [address] Chloride [Moles/Vol] 102 mmol/L Normal 101-111 [facility] Comment on above: Order Comment: line packet sent up to floor...[facility] 03/10/2023 04:24:28 EDT Performed By: #### 2 418212, 8881198 ####[facility] [address] [place] [address] CO2 [Moles/Vol] 29 mmol/L Normal 21-31 [facility] Comment on above: Order Comment: line packet sent up to floor...[facility] 03/10/2023 04:24:28 EDT Performed By: #### 2 748465, 3266879 ####[facility] [address] [place] [address] Potassium [Moles/Vol] 3.5 mmol/L Normal 3.5-5.3 [facility] Comment on above: Order Comment: line packet sent up to floor...[facility] 03/10/2023 04:24:28 EDT Performed By: #### 2 044822, 3579181 ####[facility] [address] [place] [address] Sodium [Moles/Vol] 136 mmol/L Normal 135-145 [facility] Comment on above: Order Comment: line packet sent up to floor...[facility] 03/10/2023 04:24:28 EDT Performed By: #### 2 350117, 3591641 ####[facility] [address] [place] [address] Magnesiumon 03-10-2023 Magnesium [Mass/Vol] 1.8 mg/dL Normal 1.3-2.4 [facility] Comment on above: Performed By: #### 2 725427, 2482390 ####[facility] [address] [place] [address] Progress Note-Nurseon 2022 Progress Note-Nurse Late Entry Pt's spouse took home all belongings except for the wound vac in preparation for discharge on 03/10 @ 1253. Normal [facility] Transfer Documentson 023 Transfer Documents [id number]#1.00CD :127 Normal [facility] UA With Cult Reflexon 2022 Bacteria LM Ql (Urine sed) TRACE Normal Trace [facility] Comment on above: Order Comment: Urina ry Catheter Insertion triggered Urinalysis With Culture Reflex order by discern. Performed By: #### 2 859262, 19836734 ####[facility] [address] [place] [address] Bilirubin Ql (U) Negative Normal Negative [facility] Comment on above: Order Comment: Urina ry Catheter Insertion triggered Urinalysis With Culture Reflex order by discern. Performed By: #### 2 305868, 59107429 ####[facility] [address] [place] [address] Clarity (U) CLEAR Normal Clear [facility] Comment on above: Order Comment: Urina ry Catheter Insertion triggered Urinalysis With Culture Reflex order by discern. Performed By: #### 2 318930, 31436372 ####[facility] [address] [place] [address] Color (U) YELLOW Normal Yellow [facility] Comment on above: Order Comment: Urina ry Catheter Insertion triggered Urinalysis With Culture Reflex order by discern. Performed By: #### 2 240362, 18791988 ####[address] [address] Epithelial cells.squamous LM.HPF (Urine sed) [#/Area] 0-2 Normal 0-2 [facility] Comment on above: Order Comment: Urina ry Catheter Insertion triggered Urinalysis With Culture Reflex order by discern. Performed By: #### 2 156566, 84010039 ####[address] [address] Glucose Test strip (U) [Mass/Vol] Negative Normal Negative [facility] Comment on above: Order Comment: Urina ry Catheter Insertion triggered Urinalysis With Culture Reflex order by discern. Performed By: #### 2 105301, 81022257 ####[address] [address] Hemoglobin Ql (U) 1+ Abnormal Negative [facility] Comment on above: Order Comment: Urina ry Catheter Insertion triggered Urinalysis With Culture Reflex order by discern. Performed By: #### 2 591307, 34611994 ####[place] [address] Ketones (U) [Mass/Vol] Negative Normal Negative [facility] Comment on above: Order Comment: Urina ry Catheter Insertion triggered Urinalysis With Culture Reflex order by discern. Performed By: #### 2 022274, 19979376 ####[address] [address] Leith.plasma/Leith. RBC (Bld) [Mass ratio] 4-20 Normal 0-3 [facility] Comment on above: Order Comment: Urina ry Catheter Insertion triggered Urinalysis With Culture Reflex order by discern. Performed By: #### 2 853831, 04761510 ####[address] [address] Mucus Ql (Urine sed) TRACE Normal [facility] Comment on above: Order Comment: Urina ry Catheter Insertion triggered Urinalysis With Culture Reflex order by discern. Performed By: #### 2 996618, 88099948 ####[address] [address] Nitrite Ql (U) Negative Normal Negative [facility] Comment on above: Order Comment: Urina ry Catheter Insertion triggered Urinalysis With Culture Reflex order by discern. Performed By: #### 2 000464, 06161368 ####[place] [address] pH (U) 8.5 [pH] Invalid Interpretation Code 5.0-9.0 [facility] Comment on above: Order Comment: Urina ry Catheter Insertion triggered Urinalysis With Culture Reflex order by discern. Performed By: #### 2 150198, 71873826 ####[place] [address] Protein (U) [Mass/Vol] TRACE Abnormal Negative [facility] Comment on above: Order Comment: Urina ry Catheter Insertion triggered Urinalysis With Culture Reflex order by discern. Performed By: #### 2 925784, 44017527 ####[place] 76[address] Specific gravity (U) [Rel density] 1.015 Invalid Interpretation Code 1.005-1.030 [facility] Comment on above: Order Comment: Urina ry Catheter Insertion triggered Urinalysis With Culture Reflex order by discern. Performed By: #### 2 529559, 39504338 ####[place] [address] Type of Urine collection method Boles Normal [facility] Comment on above: Order Comment: Urina ry Catheter Insertion triggered Urinalysis With Culture Reflex order by discern. Performed By: #### 2 966822, 14022438 ####[place] [address]69457 Urobilinogen Qn (U) 0.2 {Mercdees'U}/dL Normal 0.0-1.0 [facility] Comment on above: Order Comment: Urina ry Catheter Insertion triggered Urinalysis With Culture Reflex order by discern. Performed By: #### 2 868225, 70869333 ####[facility] [address] [place] [address] WBC Auto Ql (U) 1+ Abnormal Negative [facility] Comment on above: Order Comment: Urina ry Catheter Insertion triggered Urinalysis With Culture Reflex order by discern. Performed By: #### 2 151881, 77371970 ####[facility] [address] [place] [address] WBC LM.HPF (Urine sed) [#/Area] 6-15 Abnormal 0-5 [facility] Comment on above: Order Comment: Urina ry Catheter Insertion triggered Urinalysis With Culture Reflex order by discern. Performed By: #### 2 059820, 72261347 ####[facility] [address] [place] [address] URINALYSISOrdered By: Fabi Massey on 03-10-2023 Bacteria [...] PM) Normal Negative [facility] UA Auto SS Leith.plasma/Leith. RBC (Bld) [Mass ratio] 4-20 /HPF Normal [...] Spec Desc Boles (03/10/23 12:33 PM) Normal [place] UA Auto SS Urobilinogen Qn (U) 0.5586603 {Mercedes'U}/dL Normal 0.0 - 1.0 EU/dL [facility] UA Auto SS WBC Auto Ql (U) 1+ *ABN* (03/10/23 12:33 PM) Invalid Interpretation Code Negative [place] UA Auto SS WBC LM.HPF (Urine sed) [#/Area] 6-15 /HPF Invalid Interpretation Code 0-5/HPF [facility] UA Auto SS CHEMISTRYOrdered By: Lab ROP User on 03-09-2023 Glucose [Mass/Vol] 83 mg/dL Normal 55 - 99 mg/dL [facility] POC Subsection Comment on above: Result Comment: Nuno MARIN POC Device SN [id number] Invalid Interpretation Code [facility] POC Subsection POC User ID [id number] Invalid Interpretation Code [facility] POC Subsection POC Username JULIO CÉSAR CHAVIS Invalid Interpretation Code [facility] POC Subsection Capillary Glucose POCon 02-09 Glucose [Mass/Vol] 98 mg/dL Normal 55-99 [facility] Comment on above: Result Comment: Nuno MARIN Performed By: #### 2 [id number] ####[facility] [address] [place] [address] Glucose [Mass/Vol] 219 mg/dL High 55-99 [facility] Comment on above: Result Comment: Nuno MARIN Performed By: #### 2 18571625 ####[facility] [address] [place] [address] Glucose [Mass/Vol] 130 mg/dL High 55-99 [facility] Comment on above: Result Comment: Nuno aranda RN/ Performed By: #### 2 [id number] ####[facility] [address] [place] [address] Interdisciplinary Note - Michelet e Manageron 03-09-2023 Interdisciplinary Note - Work Counselor Normal [facility] Comment on above: Result Comment: Elec tronically Signed By: Sonia Morejon\.br\Date and Time Signed: 03/09/23 12:18 EDT Progress Note-Physicianon Progress Note-Physician Normal [facility] Comment on above: Result Comment: Elec tronically Signed By: Anabela DONIS\.br\Date and Time Signed: 03/09/23 16:26 EDT\.br\Electronically Co-Signed By: West Shukla MD\.br\Date and Time Co-Signed: 03/09/23 17:57 EDT UA With Cult Reflexon 2022 Type of Urine collection method Clean Catch Normal [facility] Comment on above: Order Comment: Urina ry Catheter Insertion triggered Urinalysis With Culture Reflex order by discern. Performed By: #### 1 [id number] ####[facility] [address] [place] [address] Bacteria LM Ql (Urine sed) TRACE Normal Trace [facility] Comment on above: Order Comment: Urina ry Catheter Insertion triggered Urinalysis With Culture Reflex order by discern. Performed By: #### 1 4958473 ####[facility] [address] [place] [address] Bilirubin Ql (U) Negative Normal Negative [facility] Comment on above: Order Comment: Urina ry Catheter Insertion triggered Urinalysis With Culture Reflex order by discern. Performed By: #### 1 8442820 ####[facility] [address] [place] [address] Clarity (U) CLEAR Normal Clear [facility] Comment on above: Order Comment: Urina ry Catheter Insertion triggered Urinalysis With Culture Reflex order by discern. Performed By: #### 1 2550541 ####[facility] [address] [place] [address] Color (U) YELLOW Normal Yellow [facility] Comment on above: Order Comment: Urina ry Catheter Insertion triggered Urinalysis With Culture Reflex order by discern. Performed By: #### 1 1530806 ####[facility] [address] [place] [address] Epithelial cells.squamous LM.HPF (Urine sed) [#/Area] 0-2 Normal 0-2 [facility] Comment on above: Order Comment: Urina ry Catheter Insertion triggered Urinalysis With Culture Reflex order by discern. Performed By: #### 1 2342669 ####[facility] [address] [place] [address] Glucose Test strip (U) [Mass/Vol] Negative Normal Negative [facility] Comment on above: Order Comment: Urina ry Catheter Insertion triggered Urinalysis With Culture Reflex order by discern. Performed By: #### 1 4209161 ####[facility] [address] [place] [address] Hemoglobin Ql (U) 1+ Abnormal Negative [facility] Comment on above: Order Comment: Urina ry Catheter Insertion triggered Urinalysis With Culture Reflex order by discern. Performed By: #### 1 8860206 ####[address] [address] Ketones (U) [Mass/Vol] Negative Normal Negative [facility] Comment on above: Order Comment: Urina ry Catheter Insertion triggered Urinalysis With Culture Reflex order by discern. Performed By: #### 1 7035500 ####[address] [address] Leith.plasma/Leith. RBC (Bld) [Mass ratio] 0-3 Normal 0-3 [facility] Comment on above: Order Comment: Urina ry Catheter Insertion triggered Urinalysis With Culture Reflex order by discern. Performed By: #### 1 6631025 ####[address] [address] Nitrite Ql (U) Negative Normal Negative [facility] Comment on above: Order Comment: Urina ry Catheter Insertion triggered Urinalysis With Culture Reflex order by discern. Performed By: #### 1 5117746 ####[address] [address] pH (U) 7.5 [pH] Invalid Interpretation Code 5.0-9.0 [facility] Comment on above: Order Comment: Urina ry Catheter Insertion triggered Urinalysis With Culture Reflex order by discern. Performed By: #### 1 8159170 ####[address] [address] Protein (U) [Mass/Vol] Negative Normal Negative [facility] Comment on above: Order Comment: Urina ry Catheter Insertion triggered Urinalysis With Culture Reflex order by discern. Performed By: #### 1 4531528 ####[address] [address] Specific gravity (U) [Rel density] 1.010 Invalid Interpretation Code 1.005-1.030 [facility] Comment on above: Order Comment: Urina ry Catheter Insertion triggered Urinalysis With Culture Reflex order by discern. Performed By: #### 1 5803603 ####[address] [address] Urobilinogen Qn (U) 0.2 {Mercedes'U}/dL Normal 0.0-1.0 [facility] Comment on above: Order Comment: Urina ry Catheter Insertion triggered Urinalysis With Culture Reflex order by discern. Performed By: #### 1 7938786 ####[address] [address] WBC Auto Ql (U) Negative Normal Negative [facility] Comment on above: Order Comment: Urina ry Catheter Insertion triggered Urinalysis With Culture Reflex order by discern. Performed By: #### 1 0756311 ####[address] [address] WBC LM.HPF (Urine sed) [#/Area] 0-5 Normal 0-5 [facility] Comment on above: Order Comment: Urina ry Catheter Insertion triggered Urinalysis With Culture Reflex order by discern. Performed By: #### 1 8412065 ####[facility] [address] [place] [address] URINALYSISOrdered By: Tommy Gerardo on 03-09-2023 Bacteria [...] PM) Normal Negative [facility] UA Auto SS Leith.plasma/Leith. RBC (Bld) [Mass ratio] 0-3 /HPF Normal [...] [facility] UA Auto SS Urobilinogen Qn (U) 0.3217020 {Mercedes'U}/dL Normal 0.0 - 1.0 EU/dL [facility] UA Auto SS WBC Auto Ql (U) Negative (03/09/23 6:50 PM) Normal Negative [facility] UA Auto SS WBC LM.HPF (Urine sed) [#/Area] 0-5 /HPF Normal 0-5/HPF [facility] UA Auto SS CHEMISTRYOrdered By: SYSTEM SYSTEM on 03-08-2023 Anion gap [Moles/Vol] 10 mmol/L Normal 6 - 16 mEq/L F [facility] Remisol Chloride [Moles/Vol] 103 mmol/L Normal 101 - 1 11 mmol/L [place] Remisol CO2 [Moles/Vol] 27 mmol/L Normal 21 - 31 mmol/L [place] Remisol Potassium [Moles/Vol] 3.6 mmol/L Normal 3.5 - 5.3 mmol/L [facility] Remisol Sodium [Moles/Vol] 136 mmol/L Normal 135 - 145 mmol/L [facility] Remisol Capillary Glucose POCon 02-09 Glucose [Mass/Vol] 154 mg/dL High 55-[address] [place] [address] Comment on above: Result Comment: Nuno MARIN Performed By: #### 2 [id number] ####[facility] [address] [place] [address] Glucose [Mass/Vol] 108 mg/dL High [address] [place] [address] Comment on above: Result Comment: Nuno MARIN Performed By: #### 2 [id number] ####[facility] [address] [place] [address] Glucose [Mass/Vol] 153 mg/dL High [address] [place] [address] Comment on above: Result Comment: Nuno MARIN Performed By: #### 2 [id number] ####[facility] [address] [place] [address] Glucose [Mass/Vol] 144 mg/dL High [address] [place] [address] Comment on above: Result Comment: Nuno MARIN Performed By: #### 2 [id number] ####[facility] [address] [place] [address] HIV-1/2 Ag/Ab Comboon 2022 HIV 1+2 Ab and HIV1 p24 Ag IA.rapid Nom (S/P/Bld) Negative Normal Negative [facility] Comment on above: Performed By: #### 8 [id number], [id number], [id number], [id number] ####[facility] [address] [place] [address] HIV 1+2 Ab+HIV1 p24 Ag IA Ql Non-Reactive Normal Non-Reactive [facility] Comment on above: Performed By: #### 8 [id number], [id number], [id number], 9304302 ####[facility] [address] [place] [address] HIV Combo Internal Control Line Reactive Normal Reactive [facility] Comment on above: Performed By: #### 8 [id number], [id number], [id number], 1648470 ####[facility] [address] [place] [address] HIV-1/2 Ag/Ab Combo Negative for HIV-1 and/or HIV-2 antibodies and HIV-1 p24 antigen. Normal Negative [facility] Interdisciplinary Note - Michelet e Manageron 03-08-2023 Interdisciplinary Note - Work Counselor Normal [facility] Comment on above: Result Comment: Elec tronically Signed By: Yane Escobar\.br\Date and Time Signed: 03/08/23 12:57 EDT Interdisciplinary Note - Alf singon 03-08-2023 Interdisciplinary Note - Nursing Normal [facility]2023 Anion gap [Moles/Vol] 10 mmol/L Normal 6-16 [facility] Comment on above: Order Comment: yolanda azar given to jesi Casarez [id number] 03/08/2023 09:35:59 EDT Performed By: #### 2 608871 ####[facility] [address] [place] [address] Chloride [Moles/Vol] 103 mmol/L Normal 101-111 [facility] Comment on above: Order Comment: yolanda azar given to jesi Casarez [id number] 03/08/2023 09:35:59 EDT Performed By: #### 2 231187 ####[facility] [address] [place] [address] CO2 [Moles/Vol] 27 mmol/L Normal 21-31 [facility] Comment on above: Order Comment: packe t given to jesi [email or web address] 03/08/2023 09:35:59 EDT Performed By: #### 2 054722 ####[facility] [address] [place] [address] Potassium [Moles/Vol] 3.6 mmol/L Normal 3.5-5.3 [facility] Comment on above: Order Comment: packe t given to jesi [email or web address] 03/08/2023 09:35:59 EDT Performed By: #### 2 366109 ####[facility] [address] [place] [address] Sodium [Moles/Vol] 136 mmol/L Normal 135-145 [facility] Comment on above: Order Comment: packe t given to jesi [email or web address] 03/08/2023 09:35:59 EDT Performed By: #### 2 476922 ####[facility] [address] [place] [address] Physician Orderon 03-08-2023 Physician Order [id number]: 127 Normal [facility] Progress Note-Physicianon Progress Note-Physician Normal [facility] Comment on above: Result Comment: Elec tronically Signed By: Anabela DONIS\.br\Date and Time Signed: 03/08/23 15:57 EDT\.br\Electronically Co-Signed By: West Shukla MD\.br\Date and Time Co-Signed: 03/08/23 16:14 EDT Progress Note-Physician Normal [facility] Comment on above: Result Comment: Elec tronically Signed By: Chong Coe M.D\.br\Date and Time Signed: 03/08/23 12:34 EDT Progress Note-Physician Normal [facility] Comment on above: Result Comment: Elec tronically Signed By: Lynda Carrero RN\.br\Date and Time Signed: 03/08/23 09:30 EDT\.br\Electronically Co-Signed By: Benji Russell DO\.br\Date and Time Co-Signed: 03/08/23 10:10 EDT Progress Note-Physician Normal [facility] Comment on above: Result Comment: Elec tronically Signed By: MD Horner Ahmad F\.br\Date and Time Signed: 03/08/23 08:47 EDT Progress Note-Physician Normal [facility] Comment on above: Result Comment: Elec tronically Signed By: MD Horner Ahmad F\.br\Date and Time Signed: 03/08/23 08:46 EDT Auto Diffon 03-07-2023 Basophils/100 WBC (Bld) 0.3 % Normal 0.0-2.0 [facility] Comment on above: Order Comment: Order Added by Discern Expert. Performed By: #### 2 776995, 4719250, 84539415, 0200742 ####[facility] [address] [place] [address] Basophils/Leukocytes Auto (Bld) [Pure # fraction] 0.0 E9/L Normal 0.0-0.2 [facility] Comment on above: Order Comment: Order Added by Discern Expert. Performed By: #### 2 923869, 3101565, 47536030, 6074792 ####[address] [address] Eosinophils/100 WBC (Bld) 1.1 % Normal 0.0-8.0 [facility] Comment on above: Order Comment: Order Added by Discern Expert. Performed By: #### 2 625629, 1565229, 62827185, 6954694 ####[address] [place] [address] Eosinophils/Leukocytes Auto (Bld) [Pure # fraction] 0.1 E9/L Normal 0.0-0.5 [facility] Comment on above: Order Comment: Order Added by Discern Expert. Performed By: #### 2 017640, 6684040, 47750317, 6922834 ####[facility] [address] [place] [address] Lymphocytes/100 WBC (Bld) 5.5 % Low 14.0-50.0 [facility] Comment on above: Order Comment: Order Added by Discern Expert. Performed By: #### 2 635252, 9963253, 13480279, 9664631 ####[address] [place] [address] Lymphocytes/Leukocytes Auto (Bld) [Pure # fraction] 0.3 E9/L Low 1.0-4.0 [facility] Comment on above: Order Comment: Order Added by Discern Expert. Performed By: #### 2 740008, 1535077, 73966358, 0991535 ####[address] [address] Monocytes/100 WBC (Bld) 10.4 % Normal 4.0-14.0 [facility] Comment on above: Order Comment: Order Added by Discern Expert. Performed By: #### 2 894738, 2143418, 36871381, 5235608 ####[address] [address] Monocytes/Leukocytes Auto (Bld) [Pure # fraction] 0.5 E9/L Normal 0.2-1.0 [facility] Comment on above: Order Comment: Order Added by Discern Expert. Performed By: #### 2 880561, 8261715, 94435177, 2126591 ####[address] [address] Neutrophils/100 WBC (Bld) 82.7 % High 36.0-75.0 [facility] Comment on above: Order Comment: Order Added by Discern Expert. Performed By: #### 2 622579, 4781712, 88211065, 0757666 ####[address] [place] [address] Neutrophils/Leukocytes Auto (Bld) [Pure # fraction] 4.1 E9/L Normal 2.0-7.5 [facility] Comment on above: Order Comment: Order Added by Discern Expert. Performed By: #### 2 843735, 4418125, 92178492, 0689235 ####[facility] [address] [place] [address] BMPon 03-07-2023 Anion gap [Moles/Vol] 8 mmol/L Normal 6-16 [facility] Comment on above: Performed By: #### 2 960990, 0477761, 48426113, 5088337 ####[facility] [address] [place] [address] Calcium [Mass/Vol] 8.8 mg/dL Low 8.9-11.1 [facility] Comment on above: Performed By: #### 2 542580, 4491928, 49197962, 1092709 ####[facility] [address] [place] [address] Chloride [Moles/Vol] 107 mmol/L Normal 101-111 [facility] Comment on above: Performed By: #### 2 173127, 7663043, 27490249, 2564973 ####[facility] [address] [place] [address] CO2 [Moles/Vol] 28 mmol/L Normal 21-31 [facility] Comment on above: Performed By: #### 2 472319, 9808486, 25942612, 5741599 ####[facility] [address] [place] [address] Creatinine [Mass/Vol] 0.6 mg/dL Normal 0.5-1.3 [facility] Comment on above: Performed By: #### 2 379538, 4751133, 05252624, 9613449 ####[facility] [address] [place] [address] Glucose [Mass/Vol] 136 mg/dL Normal 55-199 [facility] Comment on above: Result Comment: If t his glucose result represents a fasting glucose, interpretation should refer to the following reference range: 55-99 mg/dL Performed By: #### 2 319638, 5019065, 93582907, 5168715 ####[facility] [address] [place] [address] Potassium [Moles/Vol] 3.1 mmol/L Low 3.5-5.3 [facility] Comment on above: Performed By: #### 2 753027, 2914488, 63796462, 4706492 ####[facility] [address] [place] [address] Sodium [Moles/Vol] 140 mmol/L Normal 135-145 [facility] Comment on above: Performed By: #### 2 723318, 4356267, 54696677, 6444365 ####[facility] [address] [place] [address] Urea nitrogen [Mass/Vol] 19 mg/dL Normal 5-21 [facility] Comment on above: Performed By: #### 2 556148, 7527133, 25027202, 6274968 ####[facility] [address] [place] [address] Urea nitrogen/Creatinine [Mass ratio] 32 No Units High 10-20 [facility] Comment on above: Performed By: #### 2 934164, 1485376, 46282490, 3739166 ####[facility] [address] [place] [address] CBC w/ Auto Diffon Erythrocyte distribution width (RBC) [Ratio] 19.2 % High 10.9-14.2 [facility] Comment on above: Performed By: #### 2 673180, 2980301, 57172223, 7433274 ####[facility] [address] [place] [address] Hematocrit (Bld) [Volume fraction] 27.3 % Low 37.7-49.0 [facility] Comment on above: Performed By: #### 2 424513, 7053528, 30516227, 2734329 ####[facility] [address] [place] [address] Hemoglobin (Bld) [Mass/Vol] 8.8 g/dL Low 13.5-17.5 [facility] Comment on above: Performed By: #### 2 742031, 9147422, 07566155, 7371089 ####[facility] [address] [place] [address] MCH (RBC) [Entitic mass] 27.4 pg Normal 27.0-34.0 [facility] Comment on above: Performed By: #### 2 414689, 7636528, 45637656, 6454724 ####[facility] [address] [place], [place] [address] MCHC (RBC) [Mass/Vol] 32.2 g/dL Normal 31.4-36.0 [facility] Comment on above: Performed By: #### 2 680911, 6759327, 22633834, 8188275 ####[address] MCV (RBC) [Entitic vol] 85.0 fL Normal 80.0-100.0 [facility] Comment on above: Performed By: #### 2 767342, 1355433, 55693060, 5594876 ####[address] [place] [address] Platelet mean volume (Bld) [Entitic vol] 8.4 fL Normal 6.4-10.8 [facility] Comment on above: Performed By: #### 2 145304, 1093394, 29227663, 6285406 ####[address] [address] Platelets (Bld) [#/Vol] 220.0 E9/L Normal 150.0-500.0 [facility] Comment on above: Performed By: #### 2 158830, 6262914, 14064224, 8083740 ####[address] [place] [address] RBC (Bld) [#/Vol] 3.2 E12/L Low 4.3-5.9 [facility] Comment on above: Performed By: #### 2 295669, 9966489, 66865867, 8929665 ####[facility] [address] [place] [address] WBC corrected for nucl RBC Auto (Bld) [#/Vol] 5.0 E9/L Normal 4.0-11.0 [facility] Comment on above: Performed By: #### 2 798410, 4945717, 94707469, 3364788 ####[facility] [address] [place] [address] CHEMISTRYOrdered By: SYSTEM SYSTEM on 03-07-2023 Anion gap [Moles/Vol] 8 mmol/L Normal 6 - 16 mEq/L F [facility] Remisol Calcium [Mass/Vol] 8.8 mg/dL Low 8.9 - 11. 1 mg/dL [facility] Chloride [Moles/Vol] 107 mmol/L Normal 101 - 1 11 mmol/L [facility] CO2 [Moles/Vol] 28 mmol/L Normal 21 - 31 mmol/L [facility] Creatinine [Mass/Vol] 0.6 mg/dL Normal 0.5 - 1.3 mg/dL [facility] GFR/1.73 sq M.predicted among non-blacks MDRD (S/P/Bld) [Vol rate/Area] 100 mL/min/1.73 m2 Normal >=59mL/min/1 .73 m2 [place] Chem S Glucose [Mass/Vol] 136 mg/dL Normal [...] 02-08 Glucose [Mass/Vol] 138 mg/dL High 55-99 [facility] Comment on above: Result Comment: Nuno aranda RN/ Performed By: #### 2 [id number] ####[facility] [address] [place] [address] Glucose [Mass/Vol] 91 mg/dL Normal 55-99 [facility] Comment on above: Result Comment: Nuno aranda RN/ Performed By: #### 2 78508955 ####[facility] [address] [place] [address] Glucose [Mass/Vol] 216 mg/dL High 55-99 [facility] Comment on above: Result Comment: Nuno aranda RN/ Performed By: #### 2 35365396 ####[facility] [address] [place] [address] Glucose [Mass/Vol] 133 mg/dL High 55-99 [facility] Comment on above: Result Comment: Nuno aranda RN/ Performed By: #### 2 59611640 ####[facility] [address] [place] [address] HEMATOLOGYOrdered By: SYSTEM SYSTEM on 03-07-2023 Basophils/100 [...] Michelet e Manageron 03-07-2023 Interdisciplinary Note - Work Counselor Normal [facility] Comment on above: Result Comment: Elec tronically Signed By: Sonia Morejon\.br\Date and Time Signed: 03/07/23 12:44 EDT Operative Reporton Operative Report Normal [facility] Comment on above: Result Comment: Elec tronically Signed By: Erwin Hurd MD\.br\Date and Time Signed: 03/07/23 20:21 EDT eGFRon 03-07-2023 GFR/1.73 sq M.predicted among non-blacks MDRD (S/P/Bld) [Vol rate/Area] 100 mL/min/1.73 m2 Normal >=59 [facility] Comment on above: Order Comment: Order added by Discern Expert. Result Comment: Manager Assembly laen kidney disease could be indicated at eGFR's of less than 60 mL/min/1.73m2. Kidney failure is indicated at less than 15 mL/min/1.73m2. Performed By: #### 2 280256, 2136400, 73829067, 1986994 ####[facility] [address] [place] [address] Ammoniaon 03-06-2023 Ammonia (P) [Moles/Vol] 16 mcmol Normal 11-35 [facility] Comment on above: Performed By: #### 2 376357 ####[facility] [address] [place] [address] CHEMISTRYOrdered By: SYSTEM SYSTEM on 03-06-2023 Ammonia (P) [Moles/Vol] 16 umol Normal 11 - 35 mcmol [place] Remisol Capillary Glucose POCon 02-08 Glucose [Mass/Vol] 129 mg/dL High 55-99 [facility] Comment on above: Result Comment: Nuno MARIN Performed By: #### 2 74664372 ####[facility] [address] [place] [address] Glucose [Mass/Vol] 181 mg/dL High 55-99 [facility] Comment on above: Performed By: #### 2 [id number] ####[facility] [address] [place] [address] Glucose [Mass/Vol] 209 mg/dL High 55-99 [facility] Comment on above: Result Comment: Nuno MARIN Performed By: #### 2 14786365 ####[facility] [address] [place] [address] Glucose [Mass/Vol] 136 mg/dL High 55-99 [facility] Comment on above: Result Comment: Nuno aranda RN/ Performed By: #### 2 [id number] ####[facility] [address] [place] [address] Interdisciplinary Note - Michelet e Manageron 03-06-2023 Interdisciplinary Note - Work Counselor Normal [facility] Comment on above: Result Comment: Elec tronically Signed By: Leona Schwarz RN\.br\Date and Time Signed: 03/06/23 11:50 EDT Progress Note-Physicianon Progress Note-Physician Normal [facility] Comment on above: Result Comment: Elec tronically Signed By: Savage Petty MD\.br\Date and Time Signed: 03/06/23 12:09 EDT Progress Note-Physician Normal [facility] Comment on above: Result Comment: Elec tronically Signed By: Lynda Carrero RN\.br\Date and Time Signed: 03/06/23 10:26 EDT\.br\Electronically Co-Signed By: Benji Russell DO\.br\Date and Time Co-Signed: 03/06/23 10:39 EDT Progress Note-Physician Normal [facility] Comment on above: Result Comment: Elec tronically Signed By: Shayy BALLESTEROS MD\.br\Date and Time Signed: 03/06/23 09:20 EDT Auto DiffOrdered By: SYSTEM SYSTEM on 03-05-2023 Basophils/100 WBC (Bld) 0.4 % Normal 0.0-2.[address] [facility] Comment on above: Order Comment: Order Added by Discern Expert. Performed By: #### 2 405109, 2121954, 80491823, 3541518 ####[facility] [address] [place] [address] Basophils/Leukocytes Auto (Bld) [Pure # fraction] 0.0 E9/L Normal 0.0-0.2 [facility] Comment on above: Order Comment: Order Added by Discern Expert. Performed By: #### 2 163812, 5269881, 33628073, 5357079 ####[facility] [address] [place] [address] Eosinophils/100 WBC (Bld) 0.4 % Normal 0.0-8.0 [facility] Comment on above: Order Comment: Order Added by Discern Expert. Performed By: #### 2 246821, 7399114, 16350103, 0225103 ####[address] [address] Eosinophils/Leukocytes Auto (Bld) [Pure # fraction] 0.0 E9/L Normal 0.0-0.5 [facility] Comment on above: Order Comment: Order Added by Discern Expert. Performed By: #### 2 461029, 7339979, 16651386, 8026724 ####[address] [address] Lymphocytes/100 WBC (Bld) 5.2 % Low 14.0-50.0 [facility] Comment on above: Order Comment: Order Added by Cristiano Expert. Performed By: #### 2 990639, 6926947, 21698113, 8478734 ####[address] [address] Lymphocytes/Leukocytes Auto (Bld) [Pure # fraction] 0.3 E9/L Low 1.0-4.0 [facility] Comment on above: Order Comment: Order Added by Cristiano Expert. Performed By: #### 2 389237, 5599175, 96973288, 9571528 ####[address] [address] Monocytes/100 WBC (Bld) 9.2 % Normal 4.0-14.[address] [facility] Comment on above: Order Comment: Order Added by Cristiano Expert. Performed By: #### 2 781274, 2695728, 50830610, 3239285 ####[address] [address] Monocytes/Leukocytes Auto (Bld) [Pure # fraction] 0.6 E9/L Normal 0.2-1.0 [facility] Comment on above: Order Comment: Order Added by Cristiano Expert. Performed By: #### 2 903219, 4714258, 99898212, 4889551 ####[address] [place] [address] Neutrophils/100 WBC (Bld) 84.8 % High 36.0-75.0 [facility] Comment on above: Order Comment: Order Added by Discern Expert. Performed By: #### 2 357132, 7122534, 05828420, 3738872 ####[facility] [address] [place] [address] Neutrophils/Leukocytes Auto (Bld) [Pure # fraction] 5.6 E9/L Normal 2.0-7.5 [facility] Comment on above: Order Comment: Order Added by Discern Expert. Performed By: #### 2 010494, 0754067, 78951779, 4308600 ####[facility] [address] [place] [address] BMPon 03-05-2023 Anion gap [Moles/Vol] 9 mmol/L Normal 6-16 [facility] Comment on above: Performed By: #### 2 952474, 8619016, 21235912, 1940060 ####[facility] [address] [place] [address] Chloride [Moles/Vol] 101 mmol/L Normal 101-111 [facility] Comment on above: Performed By: #### 2 361469, 7666190, 87054436, 5733876 ####[facility] [address] [place] [address] CO2 [Moles/Vol] 26 mmol/L Normal 21-31 [facility] Comment on above: Performed By: #### 2 452041, 8650399, 58316448, 5880730 ####[facility] [address] [place] [address] Potassium [Moles/Vol] 3.6 mmol/L Normal 3.5-5.3 [facility] Comment on above: Performed By: #### 2 599690, 1104170, 94300864, 4627855 ####[address] [place] [address] Sodium [Moles/Vol] 132 mmol/L Low 135-145 [facility] Comment on above: Performed By: #### 2 815055, 2399566, 82275596, 9749442 ####[facility] [address] [place] [address] Urea nitrogen/Creatinine [Mass ratio] 26 No Units High 10-20 [facility] Comment on above: Performed By: #### 2 608696, 2202781, 38095325, 1356909 ####[facility] [address] [place] [address] BMPOrdered By: SYSTEM SYSTEM on 03-05-2023 Calcium [Mass/Vol] 8.0 mg/dL Low 8.9-11.1 [facility] Comment on above: Performed By: #### 2 039771, 6564245, 44216571, 1070850 ####[facility] [address] [place] [address] Creatinine [Mass/Vol] 0.5 mg/dL Normal 0.5-1.3 [facility] Comment on above: Performed By: #### 2 869614, 3808535, 03576380, 5215073 ####[facility] [address] [place] [address] Glucose [Mass/Vol] 125 mg/dL Normal 55-199 [facility] Comment on above: Result Comment: If t his glucose result represents a fasting glucose, interpretation should refer to the following reference range: 55-99 mg/dL Performed By: #### 2 917660, 8383830, 93111607, 5039999 ####[facility] [address] [place] [address] Urea nitrogen [Mass/Vol] 13 mg/dL Normal 5-21 [facility] Comment on above: Performed By: #### 2 110710, 5326283, 58745079, 4679782 ####[facility] [address] [place] [address] CBC w/ Auto DiffOrdered By: Yane Fitch on 03-05-2023 Erythrocyte distribution width (RBC) [Ratio] 18.2 % High 10.9-14.2 [facility] Comment on above: Performed By: #### 2 336460, 8889229, 83441480, 5107872 ####[place] [address] [address] Hematocrit (Bld) [Volume fraction] 25.1 % Low 37.7-49.0 [facility] Comment on above: Performed By: #### 2 142640, 3725544, 96851138, 8005546 ####[place] [address] [address] Hemoglobin (Bld) [Mass/Vol] 8.2 g/dL Low 13.5-17.5 [place] Comment on above: Performed By: #### 2 278138, 8734563, 22780246, 4843833 ####[place] [address] [address] MCH (RBC) [Entitic mass] 27.4 pg Normal 27.0-34.0 [facility] Comment on above: Performed By: #### 2 935863, 0974691, 17700828, 4427934 ####[place] [address] [address] MCHC (RBC) [Mass/Vol] 32.6 g/dL Normal 31.4-36.0 [facility] Comment on above: Performed By: #### 2 581416, 9219823, 89095475, 0781432 ####[place] [address] [address] MCV (RBC) [Entitic vol] 84.1 fL Normal 80.0-100.0 F [facility] Comment on above: Performed By: #### 2 048195, 7063164, 78683481, 3945662 ####[place] [address] [address] Platelet mean volume (Bld) [Entitic vol] 8.4 fL Normal 6.4-10.8 [facility] Comment on above: Performed By: #### 2 097563, 4660112, 54504224, 8195673 ####[facility] [address] [place] [address] Platelets (Bld) [#/Vol] 177.0 E9/L Normal 150.0-500.0 [place] Comment on above: Performed By: #### 2 689037, 6457773, 90931228, 2878671 ####[address] [address] RBC (Bld) [#/Vol] 3.0 E12/L Low 4.3-5.9 [place] [facility] Comment on above: Performed By: #### 2 461506, 3975885, 53247298, 6744598 ####[address] [address] WBC corrected for nucl RBC Auto (Bld) [#/Vol] 6.5 E9/L Normal 4.0-11.0 [place] [facility] Comment on above: Performed By: #### 2 535108, 8109830, 01405023, 9036741 ####[address] [address] CHEMISTRYOrdered By: SYSTEM SYSTEM on 03-05-2023 Urea nitrogen/Creatinine [Mass ratio] 26 mg/mg High 10 - 20 [place] Remisol Capillary Glucose POCon 02-08 Glucose [Mass/Vol] 158 mg/dL High 55-99 [facility] Comment on above: Result Comment: Nuno MARIN Performed By: #### 2 89588802 ####[address] [address] Glucose [Mass/Vol] 130 mg/dL High 55-99 [facility] Comment on above: Result Comment: Nuno MARIN Performed By: #### 2 92558390 ####[address] [address] Glucose [Mass/Vol] 166 mg/dL High 55-99 [facility] Comment on above: Result Comment: Nuno AMRIN Performed By: #### 2 96385945 ####[facility] [address] [place] [address] Glucose [Mass/Vol] 174 mg/dL High 55-99 [facility] Comment on above: Result Comment: Nuno MARIN Performed By: #### 2 95969298 ####[facility] [address] [place] [address] Interdisciplinary Note - Michelet e Manageron 03-05-2023 Interdisciplinary Note - Work Counselor Normal [facility] Comment on above: Result Comment: Elec tronically Signed By: Chong GUARDADO, Leona\.br\Date and Time Signed: 03/05/23 11:48 EDT Progress Note-Physicianon Progress Note-Physician Normal [facility] Comment on above: Result Comment: Elec tronically Signed By: Jovanny WISE, Savage Castillo\.br\Date and Time Signed: 03/05/23 12:19 EDT eGFROrdered By: SYSTEM SYSTE M on 03-05-2023 GFR/1.73 sq M.predicted among non-blacks MDRD (S/P/Bld) [Vol rate/Area] 106 mL/min/1.73 m2 Normal >=59 [facility] Chem S Comment on above: Order Comment: Order added by Discern Expert. Result Comment: Manager Assembly alen kidney disease could be indicated at eGFR's of less than 60 mL/min/1.73m2. Kidney failure is indicated at less than 15 mL/min/1.73m2. Performed By: #### 2 418410, 1920998, 44772865, 3316934 ####[facility] [address] [place] [address] Auto DiffOrdered By: SYSTEM SYSTEM on 03-04-2023 Basophils/100 WBC (Bld) 1.3 % Normal 0.0-2.[address] [facility] Comment on above: Order Comment: Order Added by Discern Expert. Performed By: #### 2 218066, 9195670, 20939008, 2702393 ####[facility] [address] [place] [address] Basophils/Leukocytes Auto (Bld) [Pure # fraction] 0.1 E9/L Normal 0.0-0.2 [facility] Comment on above: Order Comment: Order Added by Discern Expert. Performed By: #### 2 164233, 8132390, 70017478, 4734170 ####[address] [address] Eosinophils/100 WBC (Bld) 0.0 % Normal 0.0-8.0 [facility] Comment on above: Order Comment: Order Added by Discern Expert. Performed By: #### 2 199766, 6699169, 56393118, 9054281 ####[address] [address] Eosinophils/Leukocytes Auto (Bld) [Pure # fraction] 0.0 E9/L Normal 0.0-0.5 [facility] Comment on above: Order Comment: Order Added by Discern Expert. Performed By: #### 2 015215, 8237571, 72047515, 5747849 ####[address] [address] Lymphocytes/100 WBC (Bld) 4.6 % Low 14.0-50.0 [facility] Comment on above: Order Comment: Order Added by Discern Expert. Performed By: #### 2 399375, 9231280, 48563543, 4536895 ####[address] [address] Lymphocytes/Leukocytes Auto (Bld) [Pure # fraction] 0.4 E9/L Low 1.0-4.0 [facility] Comment on above: Order Comment: Order Added by Discern Expert. Performed By: #### 2 380734, 0236468, 30783908, 9333736 ####[address] [address] Monocytes/100 WBC (Bld) 9.5 % Normal 4.0-14.0 [facility] Comment on above: Order Comment: Order Added by Discern Expert. Performed By: #### 2 187679, 2025092, 86828078, 1107585 ####[facility] [address] [place] [address] Monocytes/Leukocytes Auto (Bld) [Pure # fraction] 0.9 E9/L Normal 0.2-1.0 [facility] Comment on above: Order Comment: Order Added by Discern Expert. Performed By: #### 2 432169, 2234049, 95439211, 6794341 ####[place] [address] [address] Neutrophils/100 WBC (Bld) 84.6 % High 36.0-75.0 [facility] Comment on above: Order Comment: Order Added by Discern Expert. Performed By: #### 2 614544, 3142088, 12547216, 0014078 ####[facility] [address] [address] Neutrophils/Leukocytes Auto (Bld) [Pure # fraction] 8.0 E9/L High 2.0-7.5 [facility] Comment on above: Order Comment: Order Added by Discern Expert. Performed By: #### 2 178746, 0612401, 44602122, 9061951 ####[place] [address] [address] BMP 03-04-2023 Anion gap [Moles/Vol] 7 mmol/L Normal 6-16 [facility] Comment on above: Order Comment: line packet dropped off to floor...[facility] 03/04/2023 05:14:11 EDT Performed By: #### 2 437267, 3335845, 17637803, 7512974 ####[facility] [address] [place] [address] Chloride [Moles/Vol] 102 mmol/L Normal 101-111 [facility] Comment on above: Order Comment: line packet dropped off to floor...[facility] 03/04/2023 05:14:11 EDT Performed By: #### 2 703796, 8562336, 59342535, 4582155 ####[place] [address] [address] CO2 [Moles/Vol] 27 mmol/L Normal 21-31 [facility] Comment on above: Order Comment: line packet dropped off to floor...[facility] 03/04/2023 05:14:11 EDT Performed By: #### 2 877383, 5091746, 10146989, 9103654 ####[facility] [address] [place] [address] Potassium [Moles/Vol] 4.0 mmol/L Normal 3.5-5.3 [facility] Comment on above: Order Comment: line packet dropped off to floor...[facility] 03/04/2023 05:14:11 EDT Performed By: #### 2 551429, 7824821, 82284846, 9543219 ####[facility] [address] [place] [address] Sodium [Moles/Vol] 132 mmol/L Low 135-145 [facility] Comment on above: Order Comment: line packet dropped off to floor...[facility] 03/04/2023 05:14:11 EDT Performed By: #### 2 405786, 2173605, 40144840, 6195122 ####[facility] [address] [place] [address] Urea nitrogen/Creatinine [Mass ratio] 34 No Units High 10-20 [facility] Comment on above: Order Comment: line packet dropped off to floor...[facility] 03/04/2023 05:14:11 EDT Performed By: #### 2 424781, 8071794, 10218897, 2484053 ####[facility] [address] [place] [address] BMPOrdered By: SYSTEM SYSTEM on 03-04-2023 Calcium [Mass/Vol] 8.1 mg/dL Low 8.9-11.1 [facility] Comment on above: Order Comment: line packet dropped off to floor...[facility] 03/04/2023 05:14:11 EDT Performed By: #### 2 070026, 9677939, 49302659, 4422900 ####[facility] [address] [place] [address] Creatinine [Mass/Vol] 0.5 mg/dL Normal 0.5-1.3 [facility] Comment on above: Order Comment: line packet dropped off to floor...[facility] 03/04/2023 05:14:11 EDT Performed By: #### 2 200617, 7889652, 09091808, 8308186 ####[facility] [address] [place] [address] Glucose [Mass/Vol] 129 mg/dL Normal 55-199 [facility] Comment on above: Order Comment: line packet dropped off to floor...[facility] 03/04/2023 05:14:11 EDT Result Comment: If t his glucose result represents a fasting glucose, interpretation should refer to the following reference range: 55-99 mg/dL Performed By: #### 2 339912, 4531227, 72697148, 4813610 ####[place] [address] [address] Urea nitrogen [Mass/Vol] 17 mg/dL Normal 5-21 [facility] Comment on above: Order Comment: line packet dropped off to floor...[facility] 03/04/2023 05:14:11 EDT Performed By: #### 2 027511, 1593958, 05149695, 4464749 ####[place] [address] [address] CBC w/ Auto DiffOrdered By: Yane Fitch on 03-04-2023 Erythrocyte distribution width (RBC) [Ratio] 17.9 % High 10.9-14.2 [facility] Comment on above: Performed By: #### 2 205187, 1629392, 08476324, 7771341 ####[place] [address] [address] Hematocrit (Bld) [Volume fraction] 26.9 % Low 37.7-49.0 [facility] Comment on above: Performed By: #### 2 352880, 7231959, 87516355, 5703044 ####[address] [address] Hemoglobin (Bld) [Mass/Vol] 8.8 g/dL Low 13.5-17.5 [facility] Comment on above: Performed By: #### 2 331749, 7545041, 22566611, 6071400 ####[address] [address] MCH (RBC) [Entitic mass] 27.4 pg Normal 27.0-34.0 [facility] Comment on above: Performed By: #### 2 596546, 2024878, 65041238, 7078545 ####[address] [address] MCHC (RBC) [Mass/Vol] 32.8 g/dL Normal 31.4-36.0 [facility] Comment on above: Performed By: #### 2 947333, 3369899, 64395772, 9650788 ####[address] [address] MCV (RBC) [Entitic vol] 83.7 fL Normal 80.0-100.[address] [facility] Comment on above: Performed By: #### 2 602113, 0339923, 61410116, 6745726 ####[address] [address] Platelet mean volume (Bld) [Entitic vol] 8.4 fL Normal 6.4-10.8 [facility] Comment on above: Performed By: #### 2 556973, 1334200, 10825160, 4332527 ####[address] [address] Platelets (Bld) [#/Vol] 185.0 E9/L Normal 150.0-500.0 [facility] Comment on above: Performed By: #### 2 905078, 7592218, 74063378, 9224970 ####[address] [address] RBC (Bld) [#/Vol] 3.2 E12/L Low 4.3-5.9 [facility] Comment on above: Performed By: #### 2 160142, 0880102, 06802591, 1734023 ####[facility] [address] [place] [address] WBC corrected for nucl RBC Auto (Bld) [#/Vol] 9.5 E9/L Normal 4.0-11.0 [facility] Comment on above: Performed By: #### 2 684179, 4953052, 64905901, 9928408 ####[facility] [address] [place] [address] CHEMISTRYOrdered By: SYSTEM SYSTEM on 03-04-2023 Urea nitrogen/Creatinine [Mass ratio] 34 mg/mg High 10 - [facility] Capillary Glucose POCon 02-08 Glucose [Mass/Vol] 123 mg/dL High 55-99 [facility] Comment on above: Result Comment: Nuno MARIN Performed By: #### 2 [id number] ####[address] [address] Glucose [Mass/Vol] 158 mg/dL High 55-99 [facility] Comment on above: Result Comment: Nuno MARIN Performed By: #### 2 65076188 ####[address] [place] [address] Glucose [Mass/Vol] 154 mg/dL High 55-99 [facility] Comment on above: Result Comment: Nuno MARIN Performed By: #### 2 63530993 ####[facility] [address] [place] [address] Glucose [Mass/Vol] 136 mg/dL High 55-99 [facility] Comment on above: Result Comment: Nuno MARIN Performed By: #### 2 43849240 ####[facility] [address] [place] [address] Consent for Anesthesiaon Consent for Anesthesia [id number]#1.00C D:127 Normal [facility] Interdisciplinary Note - Michelet e Manageron 03-04-2023 Interdisciplinary Note - Work Counselor Normal [facility] Comment on above: Result Comment: Elec tronically Signed By: Alla Choe RN\.br\Date and Time Signed: 03/04/23 13:05 EDT Interdisciplinary Note - Alf singon 03-04-2023 Interdisciplinary Note - Nursing Patient dressing was changed as it come off with continued movement. Normal [facility] Interdisciplinary Note - Ashley n 03-04-2023 Interdisciplinary Note - OT Normal [facility] IntraOperative Documentson 0 03-04-2023 IntraOperative Documents [id number]#1.00C D:127 Normal [facility] Main OR Intraoperative Recor don 03-04-2023 Main OR Intraoperative Record Normal [facility] Progress Note-Physicianon Progress Note-Physician Normal [facility] Comment on above: Result Comment: Elec tronically Signed By: Katheryn WISE, Aiden\.br\Date and Time Signed: 03/04/23 21:12 EDT Progress Note-Physician Normal [facility] Comment on above: Result Comment: Elec tronically Signed By: Chong Coe M.D\.br\Date and Time Signed: 03/04/23 09:39 EDT eGFROrdered By: LUZ Mckeon on 03-04-2023 GFR/1.73 sq M.predicted among non-blacks MDRD (S/P/Bld) [Vol rate/Area] 106 mL/min/1.73 m2 Normal >=59 [facility] Comment on above: Order Comment: Order added by Discern Expert. Result Comment: Manager Assembly alen kidney disease could be indicated at eGFR's of less than 60 mL/min/1.73m2. Kidney failure is indicated at less than 15 mL/min/1.73m2. Performed By: #### 2 230636, 8846588, 90472442, 4095009 ####[address] [place] [address] Auto Diffon 03-03-2023 Basophils/100 WBC (Bld) 2.3 % High 0.0-2.0 [facility] Comment on above: Order Comment: Order Added by Discern Expert. Performed By: #### 1 8553431, 0780739, 3375815, 3076508 ####[address] [place] [address] Basophils/Leukocytes Auto (Bld) [Pure # fraction] 0.2 E9/L Normal 0.0-0.2 [facility] Comment on above: Order Comment: Order Added by Discern Expert. Performed By: #### 1 6101626, 5020622, 7956118, 1651537 ####[address] [address] Eosinophils/100 WBC (Bld) 0.8 % Normal 0.0-8.0 [facility] Comment on above: Order Comment: Order Added by Discern Expert. Performed By: #### 1 6993194, 6563549, 7058183, 8993533 ####[address] [address] Eosinophils/Leukocytes Auto (Bld) [Pure # fraction] 0.1 E9/L Normal 0.0-0.5 [facility] Comment on above: Order Comment: Order Added by Discern Expert. Performed By: #### 1 0185750, 9698324, 1376699, 5250086 ####[address] [address] Lymphocytes/100 WBC (Bld) 5.9 % Low 14.0-50.0 [facility] Comment on above: Order Comment: Order Added by Discern Expert. Performed By: #### 1 7729784, 5416152, 3644838, 6902357 ####[address] [address] Lymphocytes/Leukocytes Auto (Bld) [Pure # fraction] 0.4 E9/L Low 1.0-4.0 [facility] Comment on above: Order Comment: Order Added by Discern Expert. Performed By: #### 1 6024845, 6074864, 1450692, 5397087 ####[facility] [address] [place] [address] Monocytes/100 WBC (Bld) 10.3 % Normal 4.0-14.0 [facility] Comment on above: Order Comment: Order Added by Discern Expert. Performed By: #### 1 2964178, 0146418, 8988691, 2404425 ####[address] [place] [address] Monocytes/Leukocytes Auto (Bld) [Pure # fraction] 0.7 E9/L Normal 0.2-1.0 [facility] Comment on above: Order Comment: Order Added by Discern Expert. Performed By: #### 1 5908656, 8571788, 1448669, 5129740 ####[address] [place] [address] Neutrophils/100 WBC (Bld) 80.7 % High 36.0-75.0 [facility] Comment on above: Order Comment: Order Added by Discern Expert. Performed By: #### 1 8977583, 6723288, 2393526, 1129863 ####[facility] [address] [place] [address] Neutrophils/Leukocytes Auto (Bld) [Pure # fraction] 5.4 E9/L Normal 2.0-7.5 [facility] Comment on above: Order Comment: Order Added by Discern Expert. Performed By: #### 1 2692634, 5576820, 4170172, 0351333 ####[facility] [address] [place] [address] BMPon 03-03-2023 Anion gap [Moles/Vol] 7 mmol/L Normal 6-16 [facility] Comment on above: Performed By: #### 1 0152599, 7590366, 2091266, 8211549 ####[address] [place] [address] Calcium [Mass/Vol] 8.1 mg/dL Low 8.9-11.1 [facility] Comment on above: Performed By: #### 1 6867874, 6394955, 3244406, 2076621 ####[facility] [address] [place] [address] Chloride [Moles/Vol] 102 mmol/L Normal 101-111 [facility] Comment on above: Performed By: #### 1 8330469, 5249081, 3362958, 0109615 ####[facility] [address] [place] [address] CO2 [Moles/Vol] 27 mmol/L Normal 21-31 [facility] Comment on above: Performed By: #### 1 0256084, 1621738, 8309554, 2566457 ####[facility] [address] [place] [address] Creatinine [Mass/Vol] 0.5 mg/dL Normal 0.5-1.3 [facility] Comment on above: Performed By: #### 1 2293822, 6647443, 7856877, 2584818 ####[facility] [address] [place] [address] Glucose [Mass/Vol] 125 mg/dL Normal 55-199 [facility] Comment on above: Result Comment: If t his glucose result represents a fasting glucose, interpretation should refer to the following reference range: 55-99 mg/dL Performed By: #### 1 6555553, 2632577, 4952597, 1212440 ####[facility] [address] [place] [address] Potassium [Moles/Vol] 3.7 mmol/L Normal 3.5-5.3 [facility] Comment on above: Performed By: #### 1 8639543, 5805548, 3625307, 4646819 ####[facility] [address] [place] [address] Sodium [Moles/Vol] 132 mmol/L Low 135-145 [facility] Comment on above: Performed By: #### 1 1719462, 7364592, 2913242, 7290058 ####[facility] [address] [place] [address] Urea nitrogen [Mass/Vol] 20 mg/dL Normal 5-21 [facility] Comment on above: Performed By: #### 1 8252036, 7725553, 7018247, 6553454 ####[address] [place] [address] Urea nitrogen/Creatinine [Mass ratio] 40 No Units High 10-20 [facility] Comment on above: Performed By: #### 1 8289525, 7875352, 0474929, 9083209 ####[address] [place] [address] CBC w/ Auto Diffon 3 Erythrocyte distribution width (RBC) [Ratio] 18.1 % High 10.9-14.2 [facility] Comment on above: Performed By: #### 1 1008863, 3057090, 8278488, 1702869 ####[address] [place] [address]857 Hematocrit (Bld) [Volume fraction] 26.1 % Low 37.7-49.0 [facility] Comment on above: Performed By: #### 1 7565212, 2743019, 8635260, 8505923 ####[address] [place] [address] Hemoglobin (Bld) [Mass/Vol] 8.6 g/dL Low 13.5-17.5 [facility] Comment on above: Performed By: #### 1 4222636, 0238498, 4552982, 1467594 ####[address] [address] MCH (RBC) [Entitic mass] 27.1 pg Normal 27.0-34.0 [facility] Comment on above: Performed By: #### 1 3394664, 6375123, 5596330, 0615238 ####[address] [place] [address] MCHC (RBC) [Mass/Vol] 32.9 g/dL Normal 31.4-36.0 [facility] Comment on above: Performed By: #### 1 4811615, 1131181, 7534299, 3396076 ####[facility] [address] [place] [address] MCV (RBC) [Entitic vol] 82.4 fL Normal 80.0-100.0 [facility] Comment on above: Performed By: #### 1 5318717, 3337787, 4150599, 8939115 ####[address] [place] [address] Platelet mean volume (Bld) [Entitic vol] 9.1 fL Normal 6.4-10.8 [facility] Comment on above: Performed By: #### 1 3155311, 1979960, 2726681, 6649966 ####[address] [address] Platelets (Bld) [#/Vol] 169.0 E9/L Normal 150.0-500.0 [facility] Comment on above: Performed By: #### 1 1083851, 9162904, 4030049, 9854791 ####[address] [address] RBC (Bld) [#/Vol] 3.2 E12/L Low 4.3-5.9 [facility] Comment on above: Performed By: #### 1 9046107, 3475923, 7818278, 3023097 ####[address] [address] WBC corrected for nucl RBC Auto (Bld) [#/Vol] 6.7 E9/L Normal 4.0-11.0 [facility] Comment on above: Performed By: #### 1 8440987, 7848593, 5371494, 4011187 ####[address] [address] Capillary Glucose POCon 02-08 Glucose [Mass/Vol] 235 mg/dL High 55-99 [facility] Comment on above: Result Comment: Nuno aranda RN/ Performed By: #### 2 36560981 ####[address] [place] [address] Glucose [Mass/Vol] 215 mg/dL High 55-99 [facility] Comment on above: Result Comment: Nuno aranda RN/ Performed By: #### 2 54943075 ####[facility] [address] [place] [address] Glucose [Mass/Vol] 111 mg/dL High 55-99 [facility] Comment on above: Result Comment: Nuno aranda RN/ Performed By: #### 2 12653742 ####[facility] [address] [place] [address] Glucose [Mass/Vol] 128 mg/dL High 55-99 [facility] Comment on above: Result Comment: Nuno aranda RN/ Performed By: #### 2 10092134 ####[facility] [address] [place] [address] Consent for Procedure/Surger yon 03-03-2023 Consent for Procedure/Surgery [id number]#1.00CD: 127 Normal [facility] Discharge Instructionson Discharge Instructions [id number]#1.00CD :127 Normal [facility] Interdisciplinary Note - Michelet e Manageron 03-03-2023 Interdisciplinary Note - Work Counselor 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 No family in room. Plan is to go to [facility] at discharge. Normal [facility] Comment on above: Result Comment: Elec tronically Signed By: Дмитрий GUARDADO, Alla\.br\Date and Time Signed: 03/03/23 11:35 EDT Main OR PACU I Recordon 02-08 Main OR PACU I Record Normal [facility] Main OR Preoperative Recordo n 03-03-2023 Main OR Preoperative Record Normal [facility] Monitor Recordon 03-03-2023 Monitor Record [id number]#1.00CD :127 Normal [facility] Monitor Record [id number]#1.00CD :127 Normal [facility] Monitor Record [id number]#1.00CD :127 Normal [facility] Progress Note-Physicianon Progress Note-Physician Normal [facility] Comment on above: Result Comment: Elec tronically Signed By: Katheryn WISE, Aiden\.br\Date and Time Signed: 03/03/23 18:30 EDT eGFRon 03-03-2023 GFR/1.73 sq M.predicted among non-blacks MDRD (S/P/Bld) [Vol rate/Area] 106 mL/min/1.73 m2 Normal >=59 [facility] Comment on above: Order Comment: Order added by Discern Expert. Result Comment: Manager Assembly alen kidney disease could be indicated at eGFR's of less than 60 mL/min/1.73m2. Kidney failure is indicated at less than 15 mL/min/1.73m2. Performed By: #### 1 6677255, 0776274, 5724236, 7294463 ####[facility] [address] [place] [address] Auto Diffon 03-02-2023 Basophils/100 WBC (Bld) 1.0 % Normal 0.0-2.0 [facility] Comment on above: Order Comment: Order Added by Discern Expert. Performed By: #### 2 788539, 2574425, 6733675, 05838488, 0133764 ####[facility] [address] [place] [address] Basophils/Leukocytes Auto (Bld) [Pure # fraction] 0.1 E9/L Normal 0.0-0.2 [facility] Comment on above: Order Comment: Order Added by Discern Expert. Performed By: #### 2 150347, 1654789, 1627470, 34103445, 4169083 ####[facility] [address] [place] [address] Eosinophils/100 WBC (Bld) 0.2 % Normal 0.0-8.0 [facility] Comment on above: Order Comment: Order Added by Discern Expert. Performed By: #### 2 152514, 2041780, 5546188, 19598408, 8228195 ####[facility] [address] [place] [address] Eosinophils/Leukocytes Auto (Bld) [Pure # fraction] 0.0 E9/L Normal 0.0-0.5 [facility] Comment on above: Order Comment: Order Added by Discern Expert. Performed By: #### 2 213965, 3547623, 5726796, 79545463, 4112920 ####[address] [place] [address] Lymphocytes/100 WBC (Bld) 4.7 % Low 14.0-50.0 [facility] Comment on above: Order Comment: Order Added by Cristiano Expert. Performed By: #### 2 831323, 9753431, 9535963, 11176948, 5373480 ####[address] [address] Lymphocytes/Leukocytes Auto (Bld) [Pure # fraction] 0.3 E9/L Low 1.0-4.0 [facility] Comment on above: Order Comment: Order Added by Cristiano Expert. Performed By: #### 2 478822, 3108768, 2486497, 04487549, 9474036 ####[address] [address] Monocytes/100 WBC (Bld) 10.1 % Normal 4.0-14.0 [facility] Comment on above: Order Comment: Order Added by Cristiano Expert. Performed By: #### 2 306538, 8521833, 1633172, 75891155, 8136599 ####[address] [address] Monocytes/Leukocytes Auto (Bld) [Pure # fraction] 0.7 E9/L Normal 0.2-1.0 [facility] Comment on above: Order Comment: Order Added by Cristiano Expert. Performed By: #### 2 708154, 8554601, 4312812, 81949476, 3653658 ####[facility] [address] [place] [address] Neutrophils/100 WBC (Bld) 84.0 % High 36.0-75.0 [facility] Comment on above: Order Comment: Order Added by Discern Expert. Performed By: #### 2 222052, 1977348, 3741240, 66285464, 3878281 ####[facility] [address] [place] [address] Neutrophils/Leukocytes Auto (Bld) [Pure # fraction] 5.6 E9/L Normal 2.0-7.5 [facility] Comment on above: Order Comment: Order Added by Discern Expert. Performed By: #### 2 684312, 6574297, 3222487, 73487770, 4620447 ####[facility] [address] [place] [address] BMPon 03-02-2023 Anion gap [Moles/Vol] 8 mmol/L Normal 6-16 [facility] Comment on above: Order Comment: line packet sent up to floor...[facility] 03/02/2023 05:13:13 EDT Performed By: #### 2 329461, 0207535, 4444793, 18048719, 0172178 ####[facility] [address] [place] [address] Calcium [Mass/Vol] 8.1 mg/dL Low 8.9-11.1 [facility] Comment on above: Order Comment: line packet sent up to floor...[facility] 03/02/2023 05:13:13 EDT Performed By: #### 2 010100, 8893189, 9449105, 10323469, 6688235 ####[facility] [address] [place] [address] Chloride [Moles/Vol] 102 mmol/L Normal 101-111 [facility] Comment on above: Order Comment: line packet sent up to floor...[facility] 03/02/2023 05:13:13 EDT Performed By: #### 2 482025, 7070881, 6371584, 70358012, 3756051 ####[facility] [address] [place] [address] CO2 [Moles/Vol] 27 mmol/L Normal 21-31 [facility] Comment on above: Order Comment: line packet sent up to floor...[facility] 03/02/2023 05:13:13 EDT Performed By: #### 2 017354, 5775482, 0613959, 60651855, 7893519 ####[facility] [address] [place] [address] Creatinine [Mass/Vol] 0.6 mg/dL Normal 0.5-1.3 [facility] Comment on above: Order Comment: line packet sent up to floor...[facility] 03/02/2023 05:13:13 EDT Performed By: #### 2 674683, 1086141, 9334494, 24291461, 0671013 ####[facility] [address] [place] [address] Glucose [Mass/Vol] 132 mg/dL Normal 55-199 [facility] Comment on above: Order Comment: line packet sent up to floor...[facility] 03/02/2023 05:13:13 EDT Result Comment: If t his glucose result represents a fasting glucose, interpretation should refer to the following reference range: 55-99 mg/dL Performed By: #### 2 007633, 2803652, 6150350, 83105903, 2143665 ####[facility] [address] [place] [address] Potassium [Moles/Vol] 3.9 mmol/L Normal 3.5-5.3 [facility] Comment on above: Order Comment: line packet sent up to floor...[facility] 03/02/2023 05:13:13 EDT Performed By: #### 2 433584, 0835151, 3196093, 98184094, 9861441 ####[facility] [address] [place] [address] Sodium [Moles/Vol] 133 mmol/L Low 135-145 [facility] Comment on above: Order Comment: line packet sent up to floor...[facility] 03/02/2023 05:13:13 EDT Performed By: #### 2 937761, 4921504, 8951940, 17840402, 8607681 ####[facility] [address] [place] [address] Urea nitrogen [Mass/Vol] 19 mg/dL Normal 5-21 [facility] Comment on above: Order Comment: line packet sent up to floor...[facility] 03/02/2023 05:13:13 EDT Performed By: #### 2 940549, 0569974, 8927854, 55774025, 5685308 ####[facility] [address] [place] [address] Urea nitrogen/Creatinine [Mass ratio] 32 No Units High 10-20 [facility] Comment on above: Order Comment: line packet sent up to floor...[facility] 03/02/2023 05:13:13 EDT Performed By: #### 2 820867, 8567426, 6856362, 23981753, 5066477 ####[facility] [address] [place] [address] CBC w/ Auto Diffon 3 Erythrocyte distribution width (RBC) [Ratio] 17.5 % High 10.9-14.2 [facility] Comment on above: Performed By: #### 2 271996, 8884985, 1405311, 61381828, 0917010 ####[facility] [address] [place] [address] Hematocrit (Bld) [Volume fraction] 25.4 % Low 37.7-49.0 [facility] Comment on above: Performed By: #### 2 429620, 7247626, 2421218, 61129503, 2173584 ####[facility] [address] [place] [address] Hemoglobin (Bld) [Mass/Vol] 8.3 g/dL Low 13.5-17.5 [facility] Comment on above: Performed By: #### 2 580230, 1060480, 6155338, 09357297, 7415955 ####[facility] [address] [place], [place] [address] MCH (RBC) [Entitic mass] 26.9 pg Low 27.0-34.0 [facility] Comment on above: Performed By: #### 2 021439, 8776856, 8656712, 63623078, 5809618 ####[place] [address]457 MCHC (RBC) [Mass/Vol] 32.7 g/dL Normal 31.4-36.0 [facility] Comment on above: Performed By: #### 2 592311, 8077518, 0630377, 85510996, 8705398 ####[place] [address]457 MCV (RBC) [Entitic vol] 82.3 fL Normal 80.0-100.0 [facility] Comment on above: Performed By: #### 2 074663, 2742887, 0235497, 46233861, 5380772 ####[place] [address]457 Platelet mean volume (Bld) [Entitic vol] 8.5 fL Normal 6.4-10.8 [facility] Comment on above: Performed By: #### 2 545164, 1547733, 2986258, 73253120, 1155640 ####[place] [address]457 Platelets (Bld) [#/Vol] 152.0 E9/L Normal 150.0-500.0 [facility] Comment on above: Performed By: #### 2 253592, 2887092, 8644024, 84684777, 8220132 ####[address] [address] RBC (Bld) [#/Vol] 3.1 E12/L Low 4.3-5.9 [facility] Comment on above: Performed By: #### 2 807794, 8003901, 9245804, 48892621, 1713305 ####[facility] [address] [place] [address] WBC corrected for nucl RBC Auto (Bld) [#/Vol] 6.7 E9/L Normal 4.0-11.0 [facility] Comment on above: Performed By: #### 2 943265, 6317533, 6336595, 24057241, 0596807 ####[facility] [address] [place] [address] CHEMISTRYOrdered By: SYSTEM SYSTEM on 03-02-2023 CK [Catalytic activity/Vol] 197 [iU]/d Normal 14 - 261 Int._Unit/L [place] Remisol CKon 03-02-2023 CK [Catalytic activity/Vol] 197 Int._Unit/L Normal 14-261 [facility] Comment on above: Performed By: #### 2 664540, 3083087, 9760931, 08954432, 5873933 ####[facility] [address] [place] [address] Capillary Glucose POCon 02-08 Glucose [Mass/Vol] 98 mg/dL Normal 55-99 [facility] Comment on above: Result Comment: Nuno MARIN Performed By: #### 2 18596745 ####[facility] [address] [place] [address] Glucose [Mass/Vol] 96 mg/dL Normal 55-99 [facility] Comment on above: Result Comment: Nuno MARIN Performed By: #### 2 24060923 ####[facility] [address] [place] [address] Glucose [Mass/Vol] 164 mg/dL High 55-99 [facility] Comment on above: Result Comment: Nuno MARIN Performed By: #### 2 01281517 ####[facility] [address] [place] [address] Glucose [Mass/Vol] 112 mg/dL High 55-99 [facility] Comment on above: Result Comment: Nuno aranda RN/ Performed By: #### 2 83034413 ####[facility] [address] [place] [address] Glucose [Mass/Vol] 111 mg/dL High 55-99 [facility] Comment on above: Result Comment: Nuno MARIN Performed By: #### 2 94549277 ####[facility] [address] [place] [address] Ferritinon 03-02-2023 Ferritin [Mass/Vol] 86 ng/mL Normal 24-336 [facility] Comment on above: Result Comment: NORM ALS MEN <30 YRS 16-132 ng/mL MEN >30 YRS 8-338 ng/mL WOMEN (PREMEN) 6-104 ng/mL WOMEN (POSTMEN) 12-210 ng/mL Performed By: #### 2 466801, 5273312, 26825958, 2367691, 5297598, 6949379, 75871368, 20305487, 2405830, 79007438 ####[facility] [address] [place] [address] Folateon 03-02-2023 Folate [Mass/Vol] 19.8 ng/mL Normal >=6.7 [facility] Comment on above: Performed By: #### 2 367907, 7606078, 33707369, 4515645, 0732823, 0680111, 02454996, 63491813, 3662052, 19997540 ####[facility] [address] [place] [address] Interdisciplinary Note - Michelet e Manageron 03-02-2023 Interdisciplinary Note - Work Counselor Normal [facility] Comment on above: Result Comment: Elec tronically Signed By: Leona Schwarz RN\.br\Date and Time Signed: 03/02/23 11:48 EDT Progress Note-Physicianon Progress Note-Physician Normal [facility] Comment on above: Result Comment: Elec tronically Signed By: Lynda Carrero RN\.br\Date and Time Signed: 03/02/23 09:23 EDT\.br\Electronically Co-Signed By: Andrea Lomax MD\.br\Date and Time Co-Signed: 03/02/23 09:35 EDT Vit B12on 03-02-2023 Cobalamin (Vitamin B12) [Mass/Vol] 1175 pg/mL Normal 50-1500 [facility] Comment on above: Performed By: #### 2 895872, 43075859, 4822888, 43429975, 3995369, 55672950, 58757249, 5930667 ####[facility] [address] [place] [address] eGFRon 03-02-2023 GFR/1.73 sq M.predicted among non-blacks MDRD (S/P/Bld) [Vol rate/Area] 100 mL/min/1.73 m2 Normal >=59 [facility] Comment on above: Order Comment: Order added by Discern Expert. Result Comment: Manager Assembly alen kidney disease could be indicated at eGFR's of less than 60 mL/min/1.73m2. Kidney failure is indicated at less than 15 mL/min/1.73m2. Performed By: #### 2 313923, 2770945, 2269551, 34756882, 9038352 ####[facility] [address] [place] [address] ABO/Rhon 03-01-2023 ABO/Rh Positive Invalid Interpretation Code [facility] Comment on above: Performed By: #### 2 622749, 2693844, 43446869, 7521427, 4694160, 4328216, 29457588, 33030635, 5260342, 22289583 ####[facility] [address] [place] [address] ABO/Rh History Checkon 03-01 ABO/Rh History Check Type verified by se cond s Normal [facility] Comment on above: Performed By: #### 2 171274, 1594261, 15165423, 9425051, 5697813, 9790581, 25504019, 64427999, 6399068, 18089207 ####[facility] [address] [place] [address] ABO/Rh Retypeon 03-01-2023 ABO/Rh Retype Interp Positive Invalid Interpretation Code [facility] Comment on above: Performed By: #### 2 559897, 32087471, 8781166, 98266342, 2823665, 24240402, 41008283, 2547346 ####[facility] [address] [place] [address] ABSCon 03-01-2023 ABSC Gel Interp Negative Normal [facility] Comment on above: Performed By: #### 2 403651, 5628605, 99527111, 3471851, 9925690, 0937082, 87371608, 29366519, 9293141, 48223953 ####[facility] [address] [place] [address] Auto Diffon 03-01-2023 Basophils/100 WBC (Bld) 0.6 % Normal 0.0-2.0 [facility] Comment on above: Order Comment: Order Added by Discern Expert. Performed By: #### 2 275749, 18040130, 2151312, 76476824, 7186066, 71410387, 37029177, 0638689 ####[facility] [address] [place] [address] Basophils/Leukocytes Auto (Bld) [Pure # fraction] 0.0 E9/L Normal 0.0-0.2 [facility] Comment on above: Order Comment: Order Added by Discern Expert. Performed By: #### 2 053435, 28869598, 7393657, 50003997, 5793836, 41418165, 23478661, 2501005 ####[facility] [address] [place] [address] Eosinophils/100 WBC (Bld) 0.5 % Normal 0.0-8.0 [facility] Comment on above: Order Comment: Order Added by Discern Expert. Performed By: #### 2 515450, 82609281, 2229944, 96185076, 4846129, 23414766, 15984198, 9973397 ####[place] [address] [place] [address] Eosinophils/Leukocytes Auto (Bld) [Pure # fraction] 0.0 E9/L Normal 0.0-0.5 [facility] Comment on above: Order Comment: Order Added by Discern Expert. Performed By: #### 2 468686, 78626971, 9827407, 08785557, 8950880, 63742369, 12362600, 1175586 ####[address] [address] Lymphocytes/100 WBC (Bld) 8.7 % Low 14.0-50.0 [facility] Comment on above: Order Comment: Order Added by Discern Expert. Performed By: #### 2 074814, 74107218, 5445279, 18453992, 3644724, 38336680, 81974838, 2079789 ####[address] [address] Lymphocytes/Leukocytes Auto (Bld) [Pure # fraction] 0.5 E9/L Low 1.0-4.0 [facility] Comment on above: Order Comment: Order Added by Discern Expert. Performed By: #### 2 223001, 83615571, 5107396, 16985596, 3299069, 31855336, 38245138, 9365905 ####[address] [address] Monocytes/100 WBC (Bld) 11.3 % Normal 4.0-14.0 [facility] Comment on above: Order Comment: Order Added by Discern Expert. Performed By: #### 2 065585, 88712007, 4803239, 77006368, 4969894, 40485367, 44038473, 1138232 ####[address] [address] Monocytes/Leukocytes Auto (Bld) [Pure # fraction] 0.6 E9/L Normal 0.2-1.0 [facility] Comment on above: Order Comment: Order Added by Discern Expert. Performed By: #### 2 799967, 47975498, 0381199, 77497923, 2162643, 31743104, 60566730, 0958968 ####[facility] [address] [place] [address] Neutrophils/100 WBC (Bld) 78.9 % High 36.0-75.0 [facility] Comment on above: Order Comment: Order Added by Discern Expert. Performed By: #### 2 861125, 88963183, 8143907, 01807910, 6701475, 58694863, 59810805, 3316111 ####[facility] [address] [place] [address] Neutrophils/Leukocytes Auto (Bld) [Pure # fraction] 4.3 E9/L Normal 2.0-7.5 [facility] Comment on above: Order Comment: Order Added by Discern Expert. Performed By: #### 2 856516, 89876110, 8595318, 53531439, 9831226, 31136032, 12050673, 4123915 ####[facility] [address] [place] [address] BLOOD BANKOrdered By: Fabi Massey on 03-01-2023 ABO/Rh Interp Positive Invalid Interpretation Code [place] BB Subsection ABSC Gel Interp Negative (03/01/23 8:13 AM) Normal [place] BB Subsection ABO/Rh Retype Interp Positive Invalid Interpretation Code [place] BB Subsection Blood Bank ID#on 03-01-2023 BBID# [id number] Invalid Interpretation Code [facility] Comment on above: Performed By: #### 2 539309, 8709575, 30041837, 5947707, 4119762, 8846760, 64214815, 46080648, 4613975, 81054386 ####[facility] [address] [place] [address] CBC w/ Auto Diffon 3 Erythrocyte distribution width (RBC) [Ratio] 19.2 % High 10.9-14.2 [facility] Comment on above: Performed By: #### 2 763842, 03010217, 3564838, 03273909, 6648535, 98538234, 32677517, 1748733 ####[facility] [address] [place] [address] Hematocrit (Bld) [Volume fraction] 19.9 % Low 37.7-49.0 [facility] Comment on above: Performed By: #### 2 635772, 98682954, 7478713, 41513422, 8279113, 35329857, 10058553, 7357466 ####[facility] [address] [place] [address] Hemoglobin (Bld) [Mass/Vol] 6.5 g/dL Abnormal 13.5-17.5 [facility] Comment on above: Result Comment: Resu lts Called To Isaac/Angela Mendez By _ And Read Back For Confirmation On 03/01/2023 07:50:53 EDTResults Verified By Repeat Analysis Performed By: #### 2 854484, 27448003, 3064057, 71240151, 8205981, 50029165, 02285899, 4076300 ####[facility] [address] [place] [address] MCH (RBC) [Entitic mass] 26.9 pg Low 27.0-34.0 [facility] Comment on above: Performed By: #### 2 819827, 64679647, 9355799, 95971225, 4433475, 73979343, 25191520, 1210385 ####[facility] [address] [place] [address] MCHC (RBC) [Mass/Vol] 32.6 g/dL Normal 31.4-36.0 [facility] Comment on above: Performed By: #### 2 864939, 09341949, 7288794, 58160221, 8260440, 72002223, 09426657, 5008963 ####[facility] [address] [place] [address] MCV (RBC) [Entitic vol] 82.3 fL Normal 80.0-100.0 [facility] Comment on above: Performed By: #### 2 714323, 75741704, 2855138, 50662521, 1115344, 18936765, 30186714, 9552989 ####[facility] [address] [place] [address] Platelet mean volume (Bld) [Entitic vol] 8.9 fL Normal 6.4-10.8 [facility] Comment on above: Performed By: #### 2 222370, 60271502, 3312382, 57805497, 8563131, 38732520, 20007768, 7841850 ####[facility] [address] [place] [address] Platelets (Bld) [#/Vol] 161.0 E9/L Normal 150.0-500.0 [facility] Comment on above: Performed By: #### 2 126064, 24149669, 1688759, 95946601, 2103678, 54747916, 09596532, 7242568 ####[address] [address] RBC (Bld) [#/Vol] 2.4 E12/L Low 4.3-5.9 [facility] Comment on above: Performed By: #### 2 682034, 12881325, 1613384, 94695515, 4349099, 67345429, 37400431, 5482912 ####[place] [address] [place] [address] WBC corrected for nucl RBC Auto (Bld) [#/Vol] 5.5 E9/L Normal 4.0-11.0 [facility] Comment on above: Performed By: #### 2 456007, 44745635, 0610533, 28301159, 8146040, 47260984, 56488975, 4696554 ####[facility] [address] [place] [address] CHEMISTRYOrdered By: SYSTEM SYSTEM on 03-01-2023 Ferritin [...] 03-01-2023 Albumin [Mass/Vol] 2.2 g/dL Low 3.3-5.0 [facility] Comment on above: Performed By: #### 2 956955, 73764231, 4299588, 42363795, 3670958, 56690317, 63052140, 4936677 ####[facility] [address] [place] [address] Albumin/Globulin (S) [Mass conc ratio] 0.5 Low 1.1-2.2 [facility] Comment on above: Performed By: #### 2 365908, 14177607, 0320236, 73637365, 1713124, 81697748, 68596601, 2736846 ####[facility] [address] [place] [address] ALP [Catalytic activity/Vol] 77 Int._Unit/L Normal 21-98 [facility] Comment on above: Performed By: #### 2 558922, 38240216, 8243281, 45917093, 1100289, 82982642, 28576555, 3393393 ####[facility] [address] [place] [address] ALT No additional P-5'-P [Catalytic activity/Vol] 24 Int._Unit/L Normal 6-46 [facility] Comment on above: Performed By: #### 2 423323, 34403408, 2395937, 57976850, 5656138, 71033666, 04483932, 9691786 ####[facility] [address] [place] [address] Anion gap [Moles/Vol] 8 mmol/L Normal 6-16 [facility] Comment on above: Performed By: #### 2 238678, 23144478, 0084387, 16624864, 2673924, 40648392, 41674554, 2164706 ####[facility] [address] [place] [address] AST [Catalytic activity/Vol] 34 Int._Unit/L Normal 5-43 [facility] Comment on above: Performed By: #### 2 639006, 27853508, 4012195, 26094126, 6756976, 06305016, 95233668, 8448837 ####[facility] [address] [place] [address] Bilirubin [Mass/Vol] 0.6 mg/dL Normal 0.0-1.1 [facility] Comment on above: Performed By: #### 2 724512, 94117553, 7987803, 54737859, 9172658, 08800316, 31019520, 9709559 ####[facility] [address] [place] [address] Calcium [Mass/Vol] 8.1 mg/dL Low 8.9-11.1 [facility] Comment on above: Performed By: #### 2 474063, 15229094, 8406950, 55987453, 2719967, 02742928, 91603851, 7150180 ####[facility] [address] [place] [address] Chloride [Moles/Vol] 99 mmol/L Low 101-111 [facility] Comment on above: Performed By: #### 2 291859, 14764006, 1933472, 18139857, 5617365, 28200826, 37686811, 1386630 ####[facility] [address] [place] [address] CO2 [Moles/Vol] 28 mmol/L Normal 21-31 [facility] Comment on above: Performed By: #### 2 786250, 81062677, 7375659, 29764878, 7409650, 10327247, 37554136, 8578852 ####[facility] [address] [place] [address] Creatinine [Mass/Vol] 0.5 mg/dL Normal 0.5-1.3 [facility] Comment on above: Performed By: #### 2 367449, 84003236, 8862903, 11658641, 6857622, 41218401, 47955426, 4066151 ####[facility] [address] [place] [address] Globulin (S) [Mass/Vol] 4.1 g/dL High 1.4-4.0 [facility] Comment on above: Performed By: #### 2 660674, 90537556, 9960123, 57338937, 7740768, 39647541, 33066571, 9381980 ####[facility] [address] [place] [address] Glucose [Mass/Vol] 110 mg/dL Normal 55-199 [facility] Comment on above: Result Comment: If t his glucose result represents a fasting glucose, interpretation should refer to the following reference range: 55-99 mg/dL Performed By: #### 2 005025, 79047162, 7053102, 79750734, 5137972, 73415721, 78600245, 0011154 ####[facility] [address] [place] [address] Potassium [Moles/Vol] 4.0 mmol/L Normal 3.5-5.3 [facility] Comment on above: Performed By: #### 2 045409, 82820626, 6477774, 42584075, 1787315, 77259741, 39927688, 1907167 ####[facility] [address] [place] [address] Protein [Mass/Vol] 6.3 g/dL Normal 6.0-7.8 [facility] Comment on above: Performed By: #### 2 756881, 07879597, 0203426, 39773543, 1319939, 24347536, 00925465, 6080021 ####[facility] [address] [place] [address] Sodium [Moles/Vol] 131 mmol/L Low 135-145 [facility] Comment on above: Performed By: #### 2 580417, 67233524, 7096807, 01973680, 9270389, 13582841, 19066427, 6762883 ####[facility] [address] [place] [address] Urea nitrogen [Mass/Vol] 22 mg/dL High 5-21 [facility] Comment on above: Performed By: #### 2 471264, 49685090, 5701409, 54578186, 8797590, 68307863, 37526641, 2375629 ####[facility] [address] [place] [address] Urea nitrogen/Creatinine [Mass ratio] 44 No Units High 10-20 [facility] Comment on above: Performed By: #### 2 024744, 95182463, 4283233, 11767724, 0067360, 83633432, 87950345, 7807761 ####[facility] [address] [place] [address] Capillary Glucose POCon 02-08 Glucose [Mass/Vol] 160 mg/dL High 55-99 [facility] Comment on above: Result Comment: Nuno MARIN Performed By: #### 2 44897213 ####[address] [address] Glucose [Mass/Vol] 110 mg/dL High 55-99 [facility] Comment on above: Result Comment: Nuno MARIN Performed By: #### 2 30222619 ####[facility] [address] [place] [address] Glucose [Mass/Vol] 173 mg/dL High 55-99 [facility] Comment on above: Result Comment: Nuno MARIN Performed By: #### 2 22523907 ####[facility] [address] [place] [address] Glucose [Mass/Vol] 128 mg/dL High 55-99 [facility] Comment on above: Result Comment: Nuno MARIN Performed By: #### 2 78620929 ####[facility] [address] [place] [address] Consultation Noteon 03-01-20 Consultation Note Normal [facility] Comment on above: Result Comment: Elec tronically Signed By: Win GUARDADO, Ольга Roman\.br\Date and Time Signed: 03/01/23 07:00 EDT\.br\Electronically Co-Signed By: Andrea Lomax MD\.br\Date and Time Co-Signed: 03/01/23 09:00 EDT HEMATOLOGYOrdered By: Fabi Herbert on 03-01-2023 Reticulocytes/100 RBC (Bld) 1.6 % High 0.5 - 1.5 % [place] [facility] Comment on above: Result Comment: This Reticulocyte Count Has Been Corrected For Anemia Anisocytosis Ql (Bld) Present (03/01/23 5:30 AM) Normal [place] [facility] Hypochromia Auto Ql (Bld) Present (03/01/23 5:30 AM) Normal [place] [facility] Morphology Jah (Bld) [Interp] See Morphology (03/01/23 5:30 AM) Normal [place] [facility] Interdisciplinary Note - Michelet e Manageron 03-01-2023 Interdisciplinary Note - Work Counselor Normal [facility] Comment on above: Result Comment: Elec tronically Signed By: Chong GUARDADO, Leona\.fabio\Date and Time Signed: 03/01/23 11:25 EDT Interdisciplinary Note - Soc ial Workeron 03-01-2023 Interdisciplinary Note - Dealer Analyst Normal [facility] Ironon 03-01-2023 Iron [Mass/Vol] 21 microgram/dL Low 35-153 Fish er [facility] Comment on above: Performed By: #### 2 488583, 3270225, 03661980, 6821277, 4965925, 1812213, 01535346, 22887766, 6843502, 28153694 ####[facility] [address] [place] [address] LDHon 03-01-2023 LDH [Catalytic activity/Vol] 127 Int._Unit/L Normal 93-218 [facility] Comment on above: Performed By: #### 2 277680, 5998585, 74685947, 4891348, 9788723, 2088358, 03041485, 65040363, 6327920, 56810254 ####[facility] [address] [place] [address] MRI Brain w/o Contraston MRI Brain w/o Contrast Normal [facility] Morphon 03-01-2023 Anisocytosis Ql (Bld) Present Normal [facility] Comment on above: Order Comment: Order Added by Discern Expert. Performed By: #### 2 184825, 78515909, 1251687, 29961966, 6100947, 38309789, 72282677, 7601407 ####[facility] [address] [place] [address] Hypochromia Auto Ql (Bld) Present Normal [facility] Comment on above: Order Comment: Order Added by Discern Expert. Performed By: #### 2 645970, 53066581, 7424619, 07737158, 5946174, 44204212, 09694341, 7459397 ####[facility] [address] [place] [address] Morphology Jah (Bld) [Interp] See Morphology Normal [facility] Comment on above: Order Comment: Order Added by Discern Expert. Performed By: #### 2 521004, 60013240, 5318444, 21894712, 8939294, 53833837, 99997881, 4659430 ####[facility] [address] [place] [address] Progress Note-Physicianon Progress Note-Physician Normal [facility] Comment on above: Result Comment: Elec tronically Signed By: Chong Coe M.D\.br\Date and Time Signed: 03/01/23 14:52 EDT Progress Note-Physician Normal [facility] Comment on above: Result Comment: Elec tronically Signed By: FAVIAN WISE, Shayy\.br\Date and Time Signed: 03/01/23 09:01 EDT RAD - MRI Screening Formon 0 03-01-2023 RAD - MRI Screening Form [id number]: 127 Normal [facility] RAD - MRI Screening Form [id number]:1 27 Normal [facility] RCOon 03-01-2023 # of Units 2 Invalid Interpretation Code [facility] Comment on above: Result Comment: 03/01 9:30 [id number] product ready and called to Emerald Castillo/ Isaac at 03/01/2023 09:29:57 EDT by BR. Performed By: #### 1 [id number] ####[facility] [address] [place] [address] Date Required 03/01/2023 Invalid Interpretation Code [facility] Comment on above: Performed By: #### 1 [id number] ####[facility] [address] [place] [address] Product Type None Required Invalid Interpretation Code [facility] Comment on above: Performed By: #### 1 [id number] ####[facility] [address] [place] [address] Retic Counton 03-01-2023 Reticulocytes/100 RBC (Bld) 1.6 % High 0.5-1.5 [facility] Comment on above: Result Comment: This Reticulocyte Count Has Been Corrected For Anemia Performed By: #### 2 [id number], [id number], [id number], 2240251, 4564898, 8687457, 43158329, 94472421, 1686934, 15681671 ####[facility] [address] [place] [address] TIBC Calculatedon 03-01-2023 Iron binding capacity [Mass/Vol] 290 microgram/dL Normal 250-400 [facility] Comment on above: Performed By: #### 2 922439, 8606120, [id number], 1081700, 4770324, 3430327, 42982693, 01742712, 9551999, 67617682 ####[facility] [address] [place] [address] Transferrin [Mass/Vol] 207 mg/dL Normal 200-370 [facility] Comment on above: Performed By: #### 2 806547, 7696461, 50517592, 1744803, 7098303, 3791393, 93316202, 87851402, 6482700, 72247020 ####[facility] [address] [place] [address] TSH With T4fr Reflexon 03-01 TSH Qn 0.95 m[IU]/L Normal 0.34-5.60 [facility] Comment on above: Performed By: #### 2 430495, [id number], 2699237, 19633938, 3104098, 52744382, 84520062, 9144744 ####[facility] [address] [place] [address] eGFRon 03-01-2023 GFR/1.73 sq M.predicted among non-blacks MDRD (S/P/Bld) [Vol rate/Area] 106 mL/min/1.73 m2 Normal >=59 [facility] Comment on above: Order Comment: Order added by Discern Expert. Result Comment: Manager Assembly alen kidney disease could be indicated at eGFR's of less than 60 mL/min/1.73m2. Kidney failure is indicated at less than 15 mL/min/1.73m2. Performed By: #### 2 616688, 30159459, 7207018, 61400101, 0141512, 51863190, 24398897, 1808869 ####[facility] [address] [place] [address] Capillary Glucose POCon 02-08 Glucose [Mass/Vol] 212 mg/dL High 55-99 [facility] Comment on above: Result Comment: Nuno MARIN Performed By: #### 2 [id number] ####[facility] [address] [place] [address] Glucose [Mass/Vol] 134 mg/dL High 55-99 [facility] Comment on above: Result Comment: Nuno MARIN Performed By: #### 2 [id number] ####[facility] [address] [place] [address] Glucose [Mass/Vol] 157 mg/dL High 55-99 [facility] Comment on above: Result Comment: Nuno MARIN Performed By: #### 2 [id number] ####[facility] [address] [place] [address] Glucose [Mass/Vol] 126 mg/dL High 55-99 [facility] Comment on above: Result Comment: Nuno MARIN Performed By: #### 2 [id number] ####[facility] [address] [place] [address] Interdisciplinary Note - Michelet e Manageron 02-28-2023 Interdisciplinary Note - Work Counselor Normal [facility] Comment on above: Result Comment: Elec tronically Signed By: Chong GUARDADO, Leona\.br\Date and Time Signed: 02/28/23 12:21 EDT Interdisciplinary Note - Nut ritionon 02-28-2023 Interdisciplinary Note - Nutrition Pt reassessed. 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 otherwise, pt demonstrates poor appetite, but accepts supplements/nourishments . Goal not met, continue POC. Normal [facility] Comment on above: Result Comment: Elec tronically Signed By: Lucas MEADOWS, , Misty\.br\Date and Time Signed: 02/28/23 13:34 EDT BMPon 02-27-2023 Anion gap [Moles/Vol] 10 mmol/L Normal 6-16 [facility] Comment on above: Performed By: #### 2 726223, [id number] ####[facility] [address] [place] [address] Calcium [Mass/Vol] 8.1 mg/dL Low 8.9-11.1 [facility] Comment on above: Performed By: #### 2 794223, [id number] ####[facility] [address] [place] [address] Chloride [Moles/Vol] 98 mmol/L Low 101-111 [facility] Comment on above: Performed By: #### 2 048594, [id number] ####[facility] [address] [place] [address] CO2 [Moles/Vol] 28 mmol/L Normal 21-31 [facility] Comment on above: Performed By: #### 2 713542, [id number] ####[facility] [address] [place] [address] Creatinine [Mass/Vol] 0.6 mg/dL Normal 0.5-1.3 [facility] Comment on above: Performed By: #### 2 136646, [id number] ####[facility] [address] [place] [address] Glucose [Mass/Vol] 147 mg/dL Normal 55-199 [facility] Comment on above: Result Comment: If t his glucose result represents a fasting glucose, interpretation should refer to the following reference range: 55-99 mg/dL Performed By: #### 2 092659, [id number] ####[facility] [address] [place] [address] Potassium [Moles/Vol] 3.6 mmol/L Normal 3.5-5.3 [facility] Comment on above: Performed By: #### 2 937502, [id number] ####[facility] [address] [place] [address] Sodium [Moles/Vol] 132 mmol/L Low 135-145 [facility] Comment on above: Performed By: #### 2 034952, 46706649 ####[facility] [address] [facility] [place] [address] Urea nitrogen [Mass/Vol] 28 mg/dL High 5-21 [facility] Comment on above: Performed By: #### 2 268533, [id number] ####[facility] [address] [place] [address] Urea nitrogen/Creatinine [Mass ratio] 47 No Units High 10-20 [facility] Comment on above: Performed By: #### 2 758617, [id number] ####[facility] [address] [place] [address] Capillary Glucose POCon 05-2 Glucose [Mass/Vol] 95 mg/dL Normal 55-99 [facility] Comment on above: Result Comment: Nuno MARIN Performed By: #### 2 [id number] ####[facility] [address] [place] [address] Glucose [Mass/Vol] 115 mg/dL High 55-99 [facility] Comment on above: Result Comment: Nuno MARIN Performed By: #### 2 [id number] ####[facility] [address] [place] [address] Glucose [Mass/Vol] 153 mg/dL High 55-99 [facility] Comment on above: Result Comment: Nuno aranda RN/ Performed By: #### 2 [id number] ####[facility] [address] [place] [address] Glucose [Mass/Vol] 111 mg/dL High 55-99 [facility] Comment on above: Result Comment: Nuno aranda RN/ Performed By: #### 2 [id number] ####[facility] [address] [place] [address] Interdisciplinary Note - Michelet e Manageron 02-27-2023 Interdisciplinary Note - Work Counselor Normal [facility] Comment on above: Result Comment: Elec tronically Signed By: Sonia Morejon\.br\Date and Time Signed: 02/27/23 15:31 EDT Progress Note-Physicianon Progress Note-Physician Normal [facility] Comment on above: Result Comment: Elec tronically Signed By: NEVAEH WISE, Ramos\.br\Date and Time Signed: 02/27/23 10:31 EDT eGFRon 02-27-2023 GFR/1.73 sq M.predicted among non-blacks MDRD (S/P/Bld) [Vol rate/Area] 100 mL/min/1.73 m2 Normal >=59 [facility] Comment on above: Order Comment: Order added by Discern Expert. Result Comment: Manager Assembly alen kidney disease could be indicated at eGFR's of less than 60 mL/min/1.73m2. Kidney failure is indicated at less than 15 mL/min/1.73m2. Performed By: #### 2 [id number], [id number] ####[facility] [address] [place] [address] CT Head or Brain w/o Contras ton 02-26-2023 CT Head or Brain w/o Contrast Normal [facility] CT Spine Cervical w/o Contra ston 02-26-2023 CT Spine Cervical w/o Contrast Normal [facility] Capillary Glucose POCon 02-08 Glucose [Mass/Vol] 127 mg/dL High 55-99 [facility] Comment on above: Result Comment: Nuno MARIN Performed By: #### 2 [id number] ####[facility] [address] [place] [address] Glucose [Mass/Vol] 121 mg/dL High 55- [facility] Comment on above: Result Comment: Nuno MARIN Performed By: #### 2 [id number] ####[facility] [address] [place] [address] Glucose [Mass/Vol] 169 mg/dL High 55-99 [facility] Comment on above: Result Comment: Nuno MARIN Performed By: #### 2 [id number] ####[facility] [address] [place] [address] Glucose [Mass/Vol] 140 mg/dL High 55- [facility] Comment on above: Result Comment: Nuno MARIN Performed By: #### 2 [id number] ####[facility] [address] [place] [address] Glucose [Mass/Vol] 169 mg/dL High 55- [facility] Comment on above: Performed By: #### 2 [id number] ####[facility] [address] [place] [address] Interdisciplinary Note - Michelet e Manageron 02-26-2023 Interdisciplinary Note - Work Counselor Normal [facility] Comment on above: Result Comment: Elec tronically Signed By: Sonia Morejon\.br\Date and Time Signed: 02/26/23 10:51 EDT Progress Note-Physicianon Progress Note-Physician Normal [facility] Comment on above: Result Comment: Elec tronically Signed By: Ramos HERRING MD\.br\Date and Time Signed: 02/26/23 10:17 EDT Capillary Glucose POCon 02-07 Glucose [Mass/Vol] 133 mg/dL High 55-99 [facility] Comment on above: Result Comment: Nuno aranda RN/ Performed By: #### 2 [id number] ####[facility] [address] [place] [address] Glucose [Mass/Vol] 91 mg/dL Normal 55-99 [facility] Comment on above: Result Comment: Sayra francia Meter Performed By: #### 2 [id number] ####[facility] [address] [place] [address] Glucose [Mass/Vol] 155 mg/dL High 55-99 [facility] Comment on above: Result Comment: Nuno aranda RN/ Performed By: #### 2 [id number] ####[facility] [address] [place] [address] Consultation Noteon 02-26-20 Consultation Note Normal [facility] Comment on above: Result Comment: Elec tronically Signed By: Chong Coe M.D\.br\Date and Time Signed: 02/25/23 09:21 EDT Interdisciplinary Note - Michelet e Manageron 02-25-2023 Interdisciplinary Note - Work Counselor Normal [facility] Comment on above: Result Comment: Elec tronically Signed By: Alla Choe RN\.br\Date and Time Signed: 02/25/23 13:11 EDT Interdisciplinary Note - Ashley n 02-25-2023 Interdisciplinary Note - OT Normal [facility] Interdisciplinary Note - PTo n 02-25-2023 Interdisciplinary Note - PT Normal [facility] Progress Note-Physicianon Progress Note-Physician Normal [facility] Comment on above: Result Comment: Elec tronically Signed By: Paul Tinajero MD\.br\Date and Time Signed: 02/25/23 21:58 EDT Progress Note-Physician Normal [facility] Comment on above: Result Comment: Elec tronically Signed By: NEVAEH WISE, Ramos\.br\Date and Time Signed: 02/25/23 11:37 EDT CHEMISTRYOrdered By: Caity Roman on 02-24-2023 CK [Catalytic activity/Vol] 21 [iU]/d Normal 14 - 261 Int._Unit/L [place] Remisol CHEMISTRYOrdered By: Fidel Peterson on 02-24-2023 [...] Nom (U) No growth at 2 days. [facility] No Panel InformationOrdered By: Meaghan Pinzon on 02-23-2023 Blood Culture Charcoal No growth at 7 days. [facility] Blood Culture Charcoal No growth at 7 days. [facility] URINALYSISOrdered By: Elodia puckett on 02-23-2023 Bacteria [...] AM) Normal Negative [facility] UA Auto SS Leith.plasma/[place]ith. RBC (Bld) [Mass ratio] 0-3 /HPF Normal [...] Comment: cath . specimen Urobilinogen Qn (U) [id number] {Mercedes'U}/dL Normal 0.0 - 1.0 EU/dL [facility] [...] 100 mL/min/1.73 m2 Normal >=59mL/min/1 .73 m2 [place] Chem S Globulin (S) [Mass/Vol] 4.5 g/dL [...] DIFFon 02-10-20 23 ANISOCYTOSIS 1+ Normal [facility] Comment on above: Performed By: #### C ESTHELA #### [facility] [address] [place] [address] Dr. Joselyn Coffey ATYPICAL LYMPH # Normal [facility] Comment on above: Performed By: #### C ESTHELA #### [facility] [address] [address] [address] Joselyn Coffey ATYPICAL LYMPH % Normal [facility] Comment on above: Performed By: #### C DANNYMAN #### [facility] [address] [address] [address] Joselyn Coffey BAND # Normal 0.0-0.3 [facility] Comment on above: Performed By: #### C DANNYMAN #### [facility] [address] [place] [address] Dr. Joselyn Coffey BAND % Normal 0-5 [facility] Comment on above: Performed By: #### C ESTHELA #### [facility] [address] [place] [address] Dr. Joselyn Coffey BASOM # 0.00 103/ul Normal 0.00-0.10 [facility] Comment on above: Performed By: #### C BCMAN #### [facility] [address] [address] [address] Joselyn Coffey BASOM % 0.0 % Critically low 0.2-2.0 [facility] Comment on above: Performed By: #### C BCMAN #### [facility] [address] [address] [address] Joselyn Coffey BLAST # Normal [facility] Comment on above: Performed By: #### C BCDEV #### [facility] [address] [place] [address] Dr. Joselyn Coffey BLAST % Normal [facility] Comment on above: Performed By: #### C ESTHELA #### [facility] [address] [place] [address] Dr. Joselyn Coffey CORRECTED WBC Normal 4.0-11.0 [facility] Comment on above: Performed By: #### C BCDEV #### [facility] [address] [place] [address] Dr. Joselyn Coffey EOS # 0.00 103/ul Normal 0.00-0.70 [facility] Comment on above: Performed By: #### C ESTHELA #### [facility] [address] [place] [address] Dr. Joselyn Coffey EOS% 0.0 % Critically low 0.9-7.0 [facility] Comment on above: Performed By: #### C BCMAN #### [facility] [address] [place] [address] Dr. Joselyn Coffey HCT 26.7 % Critically low 42.0-54.0 [facility] Comment on above: Performed By: #### C BCMAN #### [facility] [address] [place] [address] Dr. Joselyn Coffey HGB 8.3 g/dl Critically low 14.0-18.0 [facility] Comment on above: Performed By: #### C BCMAN #### [facility] [address] [place] [address] Dr. Joselyn Coffey HYPOCHROMASIA 2+ Normal [facility] Comment on above: Performed By: #### C ESTHELA #### [facility] [address] [place] [address] Dr. Joselyn Coffey LYMPHM # 0.17 103/ul Critically low 1.20-3.80 [facility] Comment on above: Performed By: #### C ESTHELA #### [facility] [address] [place] [address] Dr. Joselyn Coffey LYMPHM% 3.0 % Critically low 20.5-60.0 [facility] Comment on above: Performed By: #### Sammy PROCTOR #### [facility] [address] [place] [address] Dr. Joselyn Coffey MCH 28.3 pg Normal 25.9-34.0 [facility] Comment on above: Performed By: #### Sammy PROCTOR #### [facility] [address] [place] [address] Dr. Joselyn Coffey MCHC 31.1 g/dl Normal 29.9-35.2 [facility] Comment on above: Performed By: #### Sammy PROCTOR #### [facility] [address] [place] [address] Dr. Joselyn Coffey MCV 91.1 fL Normal 80.0-94.0 [facility] Comment on above: Performed By: #### Sammy PROCTOR #### [facility] [address] [place] [address] Dr. Joselyn Coffey METAMYELOCYTE # Normal [facility] Comment on above: Performed By: #### Sammy PROCTOR #### [facility] [address] [place] [address] Dr. Joselyn Coffey METAMYELOCYTE % Normal [facility] Comment on above: Performed By: #### Sammy PROCTOR #### [facility] [address] [place] [address] Dr. Joselyn Coffey MONOM# 0.46 103/ul Normal 0.30-0.80 [facility] Comment on above: Performed By: #### Sammy PROCTOR #### [facility] [address] [address] [address] Joselyn Coffey MONOM% 8.0 % Normal 1.7-12.0 [facility] Comment on above: Performed By: #### Sammy PROCTOR #### [facility] [address] [place] [address] Dr. Joselyn Coffey MPV 11.6 fL Normal 9.5-13.5 [facility] Comment on above: Performed By: #### C ESTHELA #### [facility] [address] [place] [address] Dr. Joselyn Coffey MYELOCYTE # Normal [facility] Comment on above: Performed By: #### Sammy PROCTOR #### [facility] [address] [place] [address] Dr. Joselyn Coffey MYELOCYTE % Normal [facility] Comment on above: Performed By: #### Sammy PROCTOR #### [facility] [address] [place] [address] Dr. Joselyn Coffey NRBC Normal [facility] Comment on above: Performed By: #### Sammy PROCTOR #### [facility] [address] [place] [address] Dr. Joselyn Coffey PLT 161 103/ul Normal 150-450 [facility] Comment on above: Performed By: #### C ESTHELA #### [facility] [address] [place] [address] Dr. Joselyn Coffey RBC 2.93 106/ul Critically low 4.70-6.10 [facility] Comment on above: Performed By: #### C ESTHELA #### [facility] [address] [place] [address] Dr. Joselyn Coffey RDW 18.8 % Critically high 11.0-15.0 [facility] Comment on above: Performed By: #### C ESTHELA #### [facility] [address] [place] [address] Dr. Joselyn Coffey SEG # 5.16 103/ul Normal 1.40-6.50 [facility] Comment on above: Performed By: #### Sammy PROCTOR #### [facility] [address] [place] [address] Dr. Joselyn Coffey SEG % 89.0 % Critically high 43.0-75.0 [facility] Comment on above: Performed By: #### C ESTHELA #### [facility] [address] [place] [address] Dr. Joselyn Coffey WBC 5.8 103/ul Normal 4.0-11.0 [facility] Comment on above: Performed By: #### C ESTHELA #### [facility] [address] [place] [address] Dr. Joselyn Coffey PROF CHEM 8 (BAS METB)on Anion gap [Moles/Vol] 8.3 mmol/L Normal [facility] Comment on above: Performed By: #### B MP #### [facility] [address] [place] [address] Dr. Joselyn Coffey Calcium [Mass/Vol] 8.3 mg/dL Critically low 8.5-10.1 [facility] Comment on above: Performed By: #### B MP #### [facility] [address] [place] [address] Dr. Joselyn Coffey Chloride [Moles/Vol] 101 mmol/L Normal 98-107 [facility] Comment on above: Performed By: #### B MP #### [facility] [address] [place] [address] Dr. Joselyn Coffey CO2 [Moles/Vol] 27.7 mmol/L Normal 21.0-32.0 [facility] Comment on above: Performed By: #### B MP #### [facility] [address] [place] [address] Dr. Joselyn Coffey Creatinine [Mass/Vol] 0.60 mg/dL Critically low 0.70-1.30 [facility] Comment on above: Performed By: #### B MP #### [facility] [address] [place] [address] Dr. Joselyn Cofefy EGFR-AF LITHUANIAN >60 Normal >=60 [facility] Comment on above: Performed By: #### B MP #### [facility] [address] [place] [address] Dr. Joselyn Coffey EGFR-NON AF LITHUANIAN >60 Normal >=60 [facility] Comment on above: Performed By: #### B MP #### [facility] [address] [address] [address] Joselyn Coffey Glucose [Mass/Vol] 188 mg/dL Critically high 74-106 T [facility] Comment on above: Performed By: #### B MP #### [facility] [address] [address] [address] Joselyn Coffey Potassium [Moles/Vol] 4.0 mmol/L Normal 3.5-5.1 [facility] Comment on above: Performed By: #### B MP #### [facility] [address] [address] [address] Joselyn Coffey Sodium [Moles/Vol] 133 mmol/L Critically low 136-145 [facility] Comment on above: Performed By: #### B MP #### [facility] [address] [address] [address] Joselyn Coffey Urea nitrogen [Mass/Vol] 13.0 mg/dL Normal 7.0-18.0 [facility] Comment on above: Performed By: #### B MP #### [facility] [address] [place] [address] Dr. Joselyn Coffey Urea nitrogen/Creatinine [Mass ratio] 21.7 mg/mg Normal [facility] Comment on above: Performed By: #### B MP #### [facility] [address] [address] [address] Joselyn Coffey PROTIMEon 02-09-2023 INR Coag (PPP) [Relative time] 1.12 {INR} Normal [facility] Comment on above: Performed By: #### C ESTHELA #### [facility] [address] [place] [address] Dr. Joselyn Coffey INR GUIDELINES SEE BELOW Normal [facility] Comment on above: Result Comment: SNOW RED INR: 2.0 - 3.0 CONDITIONS NOT LISTED BELOW 2.5 - 3.5 FOR PROSTHETIC HEART VALVE REPLACEMENT 2.5 - 3.5 RECURRENT THROMBOSIS Performed By: #### C ESTHELA #### [facility] [address] [place] [address] Dr. Joselyn Coffey PT Coag (PPP) [Time] 11.8 s Critically high 9.0-11.6 [facility] Comment on above: Performed By: #### C DANNYMAN #### [facility] [address] [place] [address] Dr. Joselyn Coffey PTTon 02-09-2023 aPTT Coag (Bld) [Time] 37.3 s Critically high 22.3-36. 2 [facility] Comment on above: Performed By: #### C DANNYDEV #### [facility] [address] [place] [address] Dr. Joselyn Coffey US ARTERY LEG RTon [...] MARIO CULLEN Date: 2023-02-09 14:17 Normal [facility] XR CHEST 1 Von 02-09-2023 XR CHEST 1 V EXAM: XR CHEST 1 V HISTORY: Asthenia COMPARISON: 04/04/2021 TECHNIQUE: Single view of the chest FINDINGS: Heart size normal. No focal consolidation, pleural effusion, pulmonary congestion or pneumothorax. Sternotomy wires. Right-sided central line terminating in the lower SVC region. IMPRESSION: No acute findings. Electronically authenticated by: DONALD LIMA Date: 2023-02-09 14:18 Normal [facility] CBC AUTO DIFFon 01-29-2023 BASO # 0.0 103/ul Normal 0.0-0.1 [facility] Comment on above: Performed By: #### P TT, PT #### [facility] [address] [place] [address] Dr. Joselyn Coffey Basophils/100 WBC (Bld) 0.2 % Normal 0.2-2.0 [facility] Comment on above: Performed By: #### P TT, PT #### [facility] [address] [place] [address] Dr. Joselyn Coffey EO # 0.0 103/ul Normal 0.0-0.7 [facility] Comment on above: Performed By: #### P TT, PT #### [facility] [address] [place] [address] Dr. Joselyn Coffey Eosinophils/100 WBC (Bld) 0.0 % Critically low 0.9-7.0 [facility] Comment on above: Performed By: #### P TT, PT #### [facility] [address] [place] [address] Dr. Joselyn Coffey Erythrocyte distribution width (RBC) [Ratio] 17.7 % Critically high 11.0-15.0 [facility] Comment on above: Performed By: #### P TT, PT #### [facility] [address] [place] [address] Dr. Joselyn Coffey Hematocrit (Bld) [Volume fraction] 17.5 % Critically low 42.0-54.0 [facility] Comment on above: Performed By: #### P TT, PT #### [facility] [address] [place] [address] Dr. Joselyn Coffey Hemoglobin (Bld) [Mass/Vol] 5.1 g/dL Critically low 14.0-18.0 [facility] Comment on above: Performed By: #### P TT, PT #### [facility] [address] [place] [address] Dr. Joselyn Coffey IG # 0.02 10e3/ul Normal 0.00-0.03 [facility] Comment on above: Performed By: #### P TT, PT #### [facility] [address] [place] [address] Dr. Joselyn Coffey IG % 0.4 % Normal 0.0-0.5 [facility] Comment on above: Performed By: #### P TT, PT #### [facility] [address] [address] [address] Joselyn Coffey LYMPH # 0.3 103/ul Critically low 1.2-3.8 [facility] Comment on above: Performed By: #### P TT, PT #### [facility] [address] [address] [address] Joselyn Coffey Lymphocytes/100 WBC (Bld) 5.8 % Critically low 20.5-60.0 [facility] Comment on above: Performed By: #### P TT, PT #### [facility] [address] [place] [address] Dr. Joselyn Coffey MANUAL DIFF REQ NO Normal [facility] Comment on above: Performed By: #### P TT, PT #### [facility] [address] [place] [address] Dr. Joselyn Coffey MCH (RBC) [Entitic mass] 25.5 pg Critically low 25.9-34.0 [facility] Comment on above: Performed By: #### P TT, PT #### [facility] [address] [place] [address] Dr. Joselyn Coffey MCHC (RBC) [Mass/Vol] 29.1 g/dL Critically low 29.9-35.2 [facility] Comment on above: Performed By: #### P TT, PT #### [facility] [address] [place] [address] Dr. Joselyn Coffey MCV (RBC) [Entitic vol] 87.5 fL Normal 80.0-94.0 [facility] Comment on above: Performed By: #### P TT, PT #### [facility] [address] [place] [address] Dr. Joselyn Coffey MONO # 0.5 103/ul Normal 0.3-0.8 [facility] Comment on above: Performed By: #### P TT, PT #### [facility] [address] [place] [address] Dr. Joselyn Coffey Monocytes/100 WBC (Bld) 10.4 % Normal 1.7-12.0 [facility] Comment on above: Performed By: #### P TT, PT #### [facility] [address] [address] [address] Joselyn Coffey NEUT # 4.3 103/ul Normal 1.4-6.5 [facility] Comment on above: Performed By: #### P TT, PT #### [facility] [address] [address] [address] Joselyn Coffey Neutrophils/100 WBC (Bld) 83.2 % Critically high 43.0-75.0 [facility] Comment on above: Performed By: #### P TT, PT #### [facility] [address] [address] [address] Joselyn Coffey Platelet mean volume (Bld) [Entitic vol] 12.4 fL Normal 9.5-13.5 [facility] Comment on above: Performed By: #### P TT, PT #### [facility] [address] [place] [address] Dr. Joselyn Coffey PLT 113 103/ul Critically low 150-450 [facility] Comment on above: Performed By: #### P TT, PT #### [facility] [address] [address] [address] Joselyn Coffey RBC 2.00 106/ul Critically low 4.70-6.10 [facility] Comment on above: Performed By: #### P TT, PT #### [facility] [address] [address] [address] Joselyn Coffey WBC 5.2 103/ul Normal 4.0-11.0 [facility] Comment on above: Performed By: #### P TT, PT #### [facility] [address] [address] [address] Joselyn Coffey CTA ABD MARY JANE [...] by: LUZ NIETO Date: 2023-01-29 17:48 Normal [facility] PRBC LEUKOREDUCEDon 01-30-20 23 ABO and Rh group Nom (Bld) Cross Match Result Compatible Unit Blood Type O Pos Unit Number [id number] Status Information Issued Product ID Red Blood Cells Product Code [id number] Issue Date/Time [id number] Cross Match Result Compatible Unit Blood Type O Pos Unit Number [id number] Status Information Issued Product ID Red Blood Cells Product Code [id number] Issue Date/Time [id number] Normal [facility] Comment on above: Performed By: #### C BCMAN #### [facility] [address] [place] [address] Dr. Joselyn Coffey PROF CHEM 8 (BAS METB)on Anion gap [Moles/Vol] 12.3 mmol/L Normal [facility] Comment on above: Performed By: #### B MP #### [facility] [address] [place] [address] Dr. Joselyn Coffey Calcium [Mass/Vol] 7.3 mg/dL Critically low 8.5-10.1 [facility] Comment on above: Performed By: #### B MP #### [facility] [address] [place] [address] Dr. Joselyn Coffey Chloride [Moles/Vol] 100 mmol/L Normal 98-107 [facility] Comment on above: Performed By: #### B MP #### [facility] [address] [place] [address] Dr. Joselyn Coffey CO2 [Moles/Vol] 23.7 mmol/L Normal 21.0-32.0 [facility] Comment on above: Performed By: #### B MP #### [facility] [address] [place] [address] Dr. Joselyn Coffey Creatinine [Mass/Vol] 0.82 mg/dL Normal 0.70-1.30 [facility] Comment on above: Performed By: #### B MP #### [facility] [address] [place] [address] Dr. Joselyn Coffey EGFR-AF LITHUANIAN >60 Normal >=60 [facility] Comment on above: Performed By: #### B MP #### [facility] [address] [address] [address] Joselyn Coffey EGFR-NON AF LITHUANIAN >60 Normal >=60 [facility] Comment on above: Performed By: #### B MP #### [facility] [address] [address] [address] Joselyn Coffey Glucose [Mass/Vol] 234 mg/dL Critically high 74-106 T [facility] Comment on above: Performed By: #### B MP #### [facility] [address] [address] [address] Joselyn Coffey Potassium [Moles/Vol] 4.0 mmol/L Normal 3.5-5.1 [facility] Comment on above: Performed By: #### B MP #### [facility] [address] [address] [address] Joselyn Coffey Sodium [Moles/Vol] 132 mmol/L Critically low 136-145 [facility] Comment on above: Performed By: #### B MP #### [facility] [address] [address] [address] Joselyn Coffey Urea nitrogen [Mass/Vol] 14.0 mg/dL Normal 7.0-18.0 [facility] Comment on above: Performed By: #### B MP #### [facility] [address] [address] [address] Joselyn Coffey Urea nitrogen/Creatinine [Mass ratio] 17.1 mg/mg Normal [facility] Comment on above: Performed By: #### B MP #### [facility] [address] [address] [address] Joselyn Coffey PROTIMEon 01-29-2023 INR Coag (PPP) [Relative time] 1.32 {INR} Normal [facility] Comment on above: Performed By: #### P TT, PT #### [facility] [address] [address] [address] Joselyn Coffey INR GUIDELINES SEE BELOW Normal [facility] Comment on above: Result Comment: SNOW RED INR: 2.0 - 3.0 CONDITIONS NOT LISTED BELOW 2.5 - 3.5 FOR PROSTHETIC HEART VALVE REPLACEMENT 2.5 - 3.5 RECURRENT THROMBOSIS Performed By: #### P TT, PT #### [facility] [address] [place] [address] Dr. Joselyn Coffey PT Coag (PPP) [Time] 13.8 s Critically high 9.0-11.6 [facility] Comment on above: Performed By: #### P TT, PT #### [facility] [address] [place] [address] Dr. Joselyn Coffey PTTon 01-29-2023 aPTT Coag (Bld) [Time] 34.5 s Normal 22.3-36.2 [facility] Comment on above: Performed By: #### P TT, PT #### [facility] [address] [place] [address] Dr. Joselyn Coffey TYPE AND SCREENon 01-29-2023 TYPE AND SCREEN Negative Normal [facility] Comment on above: Performed By: #### C BCMAN #### [facility] [address] [place] [address] Dr. Joselyn Coffey CARDIAC MARCO A ADMITon 023 CK [Catalytic activity/Vol] 109 U/L Normal 39-308 [facility] Comment on above: Performed By: #### C MADM, CMP #### [facility] [address] [place] [address] Dr. Joselyn Coffey CK.MB [Mass/Vol] 0.94 ng/mL Normal <=3.60 [facility] Comment on above: Performed By: #### C MADM, CMP #### [facility] [address] [place] [address] Dr. Joselyn Coffey HSTROP 8.1 pg/mL Normal 4.0-76.1 [facility] Comment on above: Result Comment: CUT- OFF POINTS HAVE BEEN ESTABLISHED BASED ON THE FOURTH UNIVERSAL DEFINITIONS OF MYOCARDIAL INFARCTION. THE UPPER REFERENCE LIMIT (URL) OF TROPONIN, DEFINED THE 99TH PERCENTILE OF cTnI DISTRIBUTION IN A REFERENCE POPULATION, HAS BEEN CONFIRMED THE DECISION THRESHOLD FOR CT DIAGNOSIS. Performed By: #### C MADM, CMP #### [facility] [address] [address] [address] Joselyn Coffey CHULA 144 ng/mL Critically high 16-96 [facility] Comment on above: Performed By: #### C ROSALINA, CMP #### [facility] [address] [address] [address] Joselyn Coffey CBC AUTO DIFFon 11-13-2022 BASO # 0.0 103/ul Normal 0.0-0.1 [facility] Comment on above: Performed By: #### C ESTHELA #### [facility] [address] [place] [address] Dr. Joselyn Coffey Basophils/100 WBC (Bld) 0.3 % Normal 0.2-2.0 [facility] Comment on above: Performed By: #### C ESTHELA #### [facility] [address] [place] [address] Dr. Joselyn Coffey EO # 0.0 103/ul Normal 0.0-0.7 [facility] Comment on above: Performed By: #### C ESTHELA #### [facility] [address] [place] [address] Dr. Joselyn Coffey Eosinophils/100 WBC (Bld) 0.3 % Critically low 0.9-7.0 [facility] Comment on above: Performed By: #### C ESTHELA #### [facility] [address] [place] [address] Dr. Joselyn Coffey Erythrocyte distribution width (RBC) [Ratio] 18.7 % Critically high 11.0-15.0 [facility] Comment on above: Performed By: #### C ESTHELA #### [facility] [address] [place] [address] Dr. Joselyn Coffey Hematocrit (Bld) [Volume fraction] 25.4 % Critically low 42.0-54.0 [facility] Comment on above: Performed By: #### C ESTHELA #### [facility] [address] [place] [address] Dr. Joselyn Coffey Hemoglobin (Bld) [Mass/Vol] 8.2 g/dL Critically low 14.0-18.0 [facility] Comment on above: Performed By: #### C BCMAN #### [facility] [address] [address] [address] Joselyn Coffey IG # 0.04 10e3/ul Critically high 0.00-0.03 [facility] Comment on above: Performed By: #### C BCMAN #### [facility] [address] [address] [address] Joselyn Coffey IG % 0.7 % Critically high 0.0-0.5 [facility] Comment on above: Performed By: #### C BCMAN #### [facility] [address] [address] [address] Joselyn Coffey LYMPH # 0.4 103/ul Critically low 1.2-3.8 [facility] Comment on above: Performed By: #### C BCDEV #### [facility] [address] [place] [address] Dr. Joselyn Coffey Lymphocytes/100 WBC (Bld) 7.2 % Critically low 20.5-60.0 [facility] Comment on above: Performed By: #### C BCDEV #### [facility] [address] [place] [address] Dr. Joselyn Coffey MANUAL DIFF REQ NO Normal [facility] Comment on above: Performed By: #### C BCDEV #### [facility] [address] [place] [address] Dr. Joselyn Coffey MCH (RBC) [Entitic mass] 32.8 pg Normal 25.9-34.0 [facility] Comment on above: Performed By: #### C BCDEV #### [facility] [address] [address] [address] Joselyn Coffey MCHC (RBC) [Mass/Vol] 32.3 g/dL Normal 29.9-35.2 [facility] Comment on above: Performed By: #### C BCMAN #### [facility] [address] [place] [address] Dr. Joselyn Coffey MCV (RBC) [Entitic vol] 101.6 fL Critically high 80.0-94 .0 [facility] Comment on above: Performed By: #### C ESTHELA #### [facility] [address] [address] [address] Joselyn Coffey MONO # 0.7 103/ul Normal 0.3-0.8 [facility] Comment on above: Performed By: #### C ESTHELA #### [facility] [address] [address] [address] Joselyn Coffey Monocytes/100 WBC (Bld) 11.9 % Normal 1.7-12.0 [facility] Comment on above: Performed By: #### C ESTHELA #### [facility] [address] [address] [address] Joselyn Coffey NEUT # 4.7 103/ul Normal 1.4-6.5 [facility] Comment on above: Performed By: #### C ESTHELA #### [facility] [address] [place] [address] Dr. Joselyn Coffey Neutrophils/100 WBC (Bld) 79.6 % Critically high 43.0-75.0 [facility] Comment on above: Performed By: #### C ESTHELA #### [facility] [address] [place] [address] Dr. Joselyn Coffey Platelet mean volume (Bld) [Entitic vol] 10.8 fL Normal 9.5-13.5 [facility] Comment on above: Performed By: #### C ESTHELA #### [facility] [address] [place] [address] Dr. Joselyn Coffey PLT 108 103/ul Critically low 150-450 [facility] Comment on above: Performed By: #### C ESTHELA #### [facility] [address] [place] [address] Dr. Joeslyn Coffey RBC 2.50 106/ul Critically low 4.70-6.10 [facility] Comment on above: Performed By: #### C ESTHELA #### [facility] [address] [address] [address] Joselyn Coffey WBC 6.0 103/ul Normal 4.0-11.0 [facility] Comment on above: Performed By: #### C MAN #### [facility] [address] [place] [address] Dr. Joselyn Coffey Covid-19 PCR ([facility])on SARS-CoV-2 (COVID-19) RNA HAIM+probe Ql (Unsp spec) Not detected Normal NOT DETECTED [facility] Comment on above: Result Comment: When [...] for this test is supported by the [employer] and Human Service's declaration that [...] Performed By: #### P TT, PT #### [facility] [address] [place] [address] Dr. Joselyn Coffey ER URINE PROFILEon 3 Bilirubin Ql (U) Negative Normal NEGATIVE [facility] Comment on above: Performed By: #### P TT, PT #### [facility] [address] [place] [address] Dr. Joselyn Coffey Clarity (U) CLEAR Normal CLEAR [facility] Comment on above: Performed By: #### P TT, PT #### [facility] [address] [place] [address] Dr. Joselyn Coffey Color (U) ORANGE Abnormal YELLOW [facility] Comment on above: Performed By: #### P TT, PT #### [facility] [address] [place] [address] Dr. Joselyn Coffey ERUAHD A micrscopic examina tion will be performed if indicated. Normal [facility] Comment on above: Performed By: #### P TT, PT #### [facility] [address] [place] [address] Dr. Joselyn Coffey Glucose Ql (U) 100 mg/dl Abnormal NEGATIVE [facility] Comment on above: Performed By: #### P TT, PT #### [facility] [address] [place] [address] Dr. Joselyn Coffey Hemoglobin Ql (U) Negative Normal NEGATIVE [facility] Comment on above: Performed By: #### P TT, PT #### [facility] [address] [place] [address] Dr. Joselyn Coffey Ketones Ql (U) Negative Normal NEGATIVE [facility] Comment on above: Performed By: #### P TT, PT #### [facility] [address] [place] [address] Dr. Joselyn Coffey LEUKOCYTES Negative Normal NEGATIVE [facility] Comment on above: Performed By: #### P TT, PT #### [facility] [address] [place] [address] Dr. Joselyn Coffey Nitrite Ql (U) Negative Normal NEGATIVE [facility] Comment on above: Performed By: #### P TT, PT #### [facility] [address] [place] [address] Dr. Joselyn Coffey pH (U) 6.0 [pH] Normal 5-9 [facility] Comment on above: Performed By: #### P TT, PT #### [facility] [address] [place] [address] Dr. Joselyn Coffey SPEC GRAVITY 1.015 Normal 1.005-<=1.02 5 [facility] Comment on above: Performed By: #### P TT, PT #### [facility] [address] [place] [address] Dr. Joselyn Coffey UA PROTEIN TRACE Normal NEGATIVE/ TRACE [facility] Comment on above: Performed By: #### P TT, PT #### [facility] [address] [place] [address] Dr. Joselyn Coffey UR MICRO IND NOT INDICATED Normal [facility] Comment on above: Performed By: #### P TT, PT #### [facility] [address] [place] [address] Dr. Joselyn Coffey Urobilinogen Qn (U) 8 {Mercedes'U}/dL Abnormal 0.2 - 1.0 [facility] Comment on above: Performed By: #### P TT, PT #### [facility] [address] [place] [address] Dr. Joselyn Coffey PROF 14(COMP METB)on 023 Albumin [Mass/Vol] 2.6 g/dL Critically low 3.4-5.0 Th [facility] Comment on above: Performed By: #### C CARLYNM, CMP #### [facility] [address] [place] [address] Dr. Joselny Coffey Albumin/Globulin [Mass ratio] 0.7 {ratio} Normal [facility] Comment on above: Performed By: #### C CARLYNM, CMP #### [facility] [address] [place] [address] Dr. Joselyn Coffey ALP [Catalytic activity/Vol] 115 U/L Normal 46-116 [facility] Comment on above: Performed By: #### C CARLYNM, CMP #### [facility] [address] [place] [address] Dr. Joselyn Coffey ALT [Catalytic activity/Vol] 44 U/L Normal 16-63 [facility] Comment on above: Performed By: #### C CARLYNM, CMP #### [facility] [address] [place] [address] Dr. Joselyn Coffey Anion gap [Moles/Vol] 9.6 mmol/L Normal [facility] Comment on above: Performed By: #### C CARLYNM, CMP #### [facility] [address] [place] [address] Dr. Joselyn Coffey AST [Catalytic activity/Vol] 52 U/L Critically high 15-37 [facility] Comment on above: Performed By: #### C CARLYNM, CMP #### [facility] [address] [place] [address] Dr. Joselyn Coffey Bilirubin [Mass/Vol] 2.6 mg/dL Critically high 0.2-1.0 [facility] Comment on above: Performed By: #### C CARLYNM, CMP #### [facility] [address] [place] [address] Dr. Joselyn Coffey Calcium [Mass/Vol] 8.3 mg/dL Critically low 8.5-10.1 Th [facility] Comment on above: Performed By: #### C CARLYNM, CMP #### [facility] [address] [place] [address] Dr. Joselyn Coffey Chloride [Moles/Vol] 99 mmol/L Normal 98-107 [facility] Comment on above: Performed By: #### C CARLYNM, CMP #### [facility] [address] [place] [address] Dr. Joselyn Coffey CO2 [Moles/Vol] 26.6 mmol/L Normal 21.0-32.0 [facility] Comment on above: Performed By: #### C CARLYNM, CMP #### [facility] [address] [place] [address] Dr. Joselyn Coffey Creatinine [Mass/Vol] 0.77 mg/dL Normal 0.70-1.30 [facility] Comment on above: Performed By: #### C ROSALINA, CMP #### [facility] [address] [place] [address] Dr. Joselyn Coffey EGFR-AF LITHUANIAN >60 Normal >=60 [facility] Comment on above: Performed By: #### C ROSALINA, CMP #### [facility] [address] [place] [address] Dr. Joselyn Coffey EGFR-NON AF LITHUANIAN >60 Normal >=60 [facility] Comment on above: Performed By: #### C CARLYNM, CMP #### [facility] [address] [place] [address] Dr. Joselyn Coffey Globulin (S) [Mass/Vol] 3.5 g/dL Normal T [facility] Comment on above: Performed By: #### C CARLYNM, CMP #### [facility] [address] [place] [address] Dr. Joselyn Coffey Glucose [Mass/Vol] 123 mg/dL Critically high 74-106 T [facility] Comment on above: Performed By: #### C ROSALINA, CMP #### [facility] [address] [place] [address] Dr. Joselyn Coffey Potassium [Moles/Vol] 4.2 mmol/L Normal 3.5-5.1 [facility] Comment on above: Performed By: #### C ROSALINA, CMP #### [facility] [address] [place] [address] Dr. Joselyn Coffey Protein [Mass/Vol] 6.1 g/dL Critically low 6.4-8.2 [facility] Comment on above: Performed By: #### C ROSALINA, CMP #### [facility] [address] [place] [address] Dr. Joselyn Coffey Sodium [Moles/Vol] 131 mmol/L Critically low 136-145 [facility] Comment on above: Performed By: #### C ROSALINA, CMP #### [facility] [address] [place] [address] Dr. Joselyn Coffey Urea nitrogen [Mass/Vol] 11.0 mg/dL Normal 7.0-18.0 [facility] Comment on above: Performed By: #### C ROSALINA, CMP #### [facility] [address] [place] [address] Dr. Joselyn Coffey Urea nitrogen/Creatinine [Mass ratio] 14.3 mg/mg Normal [facility] Comment on above: Performed By: #### C ROSALINA, CMP #### [facility] [address] [place] [address] Dr. Joselyn Coffey TYPE AND SCREENon 11-13-2022 TYPE AND SCREEN Negative Normal [facility] Comment on above: Performed By: #### Sammy PROCTOR #### [facility] [address] [place] [address] Dr. Joselyn Coffey CBC W MANUAL DIFFon 11-01-19 ATYPICAL LYMPH # Normal [facility] Comment on above: Performed By: #### C ESTHELA #### [facility] [address] [place] [address] Dr. Joselyn Coffey ATYPICAL LYMPH % Normal [facility] Comment on above: Performed By: #### C BCMAN #### [facility] [address] [place] [address] Dr. Joselyn Coffey BAND # Normal 0.0-0.3 [facility] Comment on above: Performed By: #### C BCMAN #### [facility] [address] [place] [address] Dr. Joselyn Coffey BAND % Normal 0-5 [facility] Comment on above: Performed By: #### C BCMAN #### [facility] [address] [place] [address] Dr. Joselyn Coffey BASOM # 0.00 103/ul Normal 0.00-0.10 [facility] Comment on above: Performed By: #### C BCMAN #### [facility] [address] [place] [address] Dr. Joselyn Coffey BASOM % 0.0 % Critically low 0.2-2.0 [facility] Comment on above: Performed By: #### C BCDEV #### [facility] [address] [place] [address] Dr. Joselyn Coffey BLAST # Normal [facility] Comment on above: Performed By: #### C BCMAN #### [facility] [address] [place] [address] Dr. Joselyn Coffey BLAST % Normal [facility] Comment on above: Performed By: #### C BCDEV #### [facility] [address] [place] [address] Dr. Joselyn Coffey CORRECTED WBC Normal 4.0-11.0 [facility] Comment on above: Performed By: #### C BCMAN #### [facility] [address] [place] [address] Dr. Joselyn Coffey EOS # 0.00 103/ul Normal 0.00-0.70 [facility] Comment on above: Performed By: #### C BCMAN #### [facility] [address] [place] [address] Dr. Joselyn Coffey EOS% 0.0 % Critically low 0.9-7.0 [facility] Comment on above: Performed By: #### C ESTHELA #### [facility] [address] [address] [address] Joselyn Coffey HCT 36.5 % Critically low 42.0-54.0 [facility] Comment on above: Performed By: #### C ESTHELA #### [facility] [address] [address] [address] Joselyn Coffey HGB 13.2 g/dl Critically low 14.0-18.0 [facility] Comment on above: Performed By: #### C ESTHELA #### [facility] [address] [place] [address] Dr. Joselyn Coffey LYMPHM # 0.35 103/ul Critically low 1.20-3.80 [facility] Comment on above: Performed By: #### C ESTHELA #### [facility] [address] [place] [address] Dr. Joselyn Coffey LYMPHM% 7.0 % Critically low 20.5-60.0 [facility] Comment on above: Performed By: #### C ESTHELA #### [facility] [address] [place] [address] Dr. Joselyn Coffey MCH 31.9 pg Normal 25.9-34.0 [facility] Comment on above: Performed By: #### C ESTHELA #### [facility] [address] [place] [address] Dr. Joselyn Coffey MCHC 36.2 g/dl Critically high 29.9-35.2 [facility] Comment on above: Performed By: #### C ESTHELA #### [facility] [address] [place] [address] Dr. Joselyn Coffey MCV 88.2 fL Normal 80.0-94.0 [facility] Comment on above: Performed By: #### C ESTHELA #### [facility] [address] [place] [address] Dr. Joselyn Coffey METAMYELOCYTE # Normal [facility] Comment on above: Performed By: #### Sammy PROCTOR #### [facility] [address] [place] [address] Dr. Joselyn Coffey METAMYELOCYTE % Normal [facility] Comment on above: Performed By: #### C BCMAN #### [facility] [address] [place] [address] Dr. Joselyn Coffey MONOM# 0.35 103/ul Normal 0.30-0.80 [facility] Comment on above: Performed By: #### C BCMAN #### [facility] [address] [place] [address] Dr. Joselyn Coffey MONOM% 7.0 % Normal 1.7-12.0 [facility] Comment on above: Performed By: #### C BCMAN #### [facility] [address] [place] [address] Dr. Joselyn Coffey MPV 10.7 fL Normal 9.5-13.5 [facility] Comment on above: Performed By: #### C ESTHELA #### [facility] [address] [place] [address] Dr. Joselyn Coffey MYELOCYTE # Normal [facility] Comment on above: Performed By: #### C ESTHELA #### [facility] [address] [place] [address] Dr. Joselyn Coffey MYELOCYTE % Normal [facility] Comment on above: Performed By: #### C ESTHELA #### [facility] [address] [place] [address] Dr. Joselyn Coffey NRBC Normal [facility] Comment on above: Performed By: #### C BCDEV #### [facility] [address] [place] [address] Dr. Joselyn Coffey PLT 79 103/ul Critically low 150-450 [facility] Comment on above: Performed By: #### C BCMAN #### [facility] [address] [place] [address] Dr. Joselyn Coffey RBC 4.14 106/ul Critically low 4.70-6.10 [facility] Comment on above: Performed By: #### C BCDEV #### [facility] [address] [place] [address] Dr. Joselyn Coffey RDW 13.2 % Normal 11.0-15.0 [facility] Comment on above: Performed By: #### C ESTHELA #### [facility] [address] [place] [address] Dr. Joselyn Coffey SEG # 4.30 103/ul Normal 1.40-6.50 [facility] Comment on above: Performed By: #### C ESTHELA #### [facility] [address] [place] [address] Dr. Joselyn Coffey SEG % 86.0 % Critically high 43.0-75.0 [facility] Comment on above: Performed By: #### C ESTHELA #### [facility] [address] [place] [address] Dr. Joselyn Coffey WBC 5.0 103/ul Normal 4.0-11.0 [facility] Comment on above: Performed By: #### C ESTHELA #### [facility] [address] [place] [address] Dr. Joselyn Coffey MRSA NARES #1on 11-01-2022 MRSA NARES #1 Culture Observations : NO GROWTH OF MRSA AT 48 HOURS. Normal [facility] Comment on above: Performed By: #### C ESTHELA #### [facility] [address] [place] [address] Dr. Joselyn Coffey PROF CHEM 8 (BAS METB)on Anion gap [Moles/Vol] 12.7 mmol/L Normal [facility] Comment on above: Performed By: #### P TT, PT #### [facility] [address] [place] [address] Dr. Joselyn Coffey Calcium [Mass/Vol] 8.9 mg/dL Normal 8.5-10.1 [facility] Comment on above: Performed By: #### P TT, PT #### [facility] [address] [place] [address] Dr. Joselyn Coffey Chloride [Moles/Vol] 100 mmol/L Normal 98-107 [facility] Comment on above: Performed By: #### P TT, PT #### [facility] [address] [place] [address] Dr. Joselyn Coffey CO2 [Moles/Vol] 29.0 mmol/L Normal 21.0-32.0 [facility] Comment on above: Performed By: #### P TT, PT #### [facility] [address] [place] [address] Dr. Joselyn Coffey Creatinine [Mass/Vol] 1.06 mg/dL Normal 0.70-1.30 [facility] Comment on above: Performed By: #### P TT, PT #### [facility] [address] [address] [address] Joselyn Coffey EGFR-AF LITHUANIAN >60 Normal >=60 [facility] Comment on above: Performed By: #### P TT, PT #### [facility] [address] [place] [address] Dr. Joselyn Coffey EGFR-NON AF LITHUANIAN >60 Normal >=60 [facility] Comment on above: Performed By: #### P TT, PT #### [facility] [address] [place] [address] Dr. Joselyn Coffey Glucose [Mass/Vol] 278 mg/dL Critically high 74-106 T [facility] Comment on above: Performed By: #### P TT, PT #### [facility] [address] [place] [address] Dr. Joselyn Coffey Potassium [Moles/Vol] 4.7 mmol/L Normal 3.5-5.1 [facility] Comment on above: Performed By: #### P TT, PT #### [facility] [address] [place] [address] Dr. Joselyn Coffey Sodium [Moles/Vol] 137 mmol/L Normal 136-145 [facility] Comment on above: Performed By: #### P TT, PT #### [facility] [address] [place] [address] Dr. Joselyn Coffey Urea nitrogen [Mass/Vol] 17.0 mg/dL Normal 7.0-18.0 [facility] Comment on above: Performed By: #### P TT, PT #### [facility] [address] [place] [address] Dr. Joselyn Coffey Urea nitrogen/Creatinine [Mass ratio] 16.0 mg/mg Normal [facility] Comment on above: Performed By: #### P TT, PT #### [facility] [address] [place] [address] Dr. Joselyn Coffey PROTIMEon 11-01-2022 INR Coag (PPP) [Relative time] 1.10 {INR} Normal [facility] Comment on above: Performed By: #### P TT, PT #### [facility] [address] [place] [address] Dr. Joselyn Coffey INR GUIDELINES SEE BELOW Normal [facility] Comment on above: Result Comment: SNOW RED INR: 2.0 - 3.0 CONDITIONS NOT LISTED BELOW 2.5 - 3.5 FOR PROSTHETIC HEART VALVE REPLACEMENT 2.5 - 3.5 RECURRENT THROMBOSIS Performed By: #### P TT, PT #### [facility] [address] [place] [address] Dr. Joselyn Coffey PT Coag (PPP) [Time] 11.6 s Normal 9.0-11.6 [facility] Comment on above: Performed By: #### P TT, PT #### [facility] [address] [place] [address] Dr. Joselyn Coffey PTTon 11-01-2022 aPTT Coag (Bld) [Time] 29.8 s Normal 22.3-36.2 [facility] Comment on above: Performed By: #### P TT, PT #### [facility] [address] [place] [address] Dr. Joselyn Coffey CTA ABD MARY JANE [...] by: ANDREA ARTEAGA Date: 2022-10-20 15:34 Normal [facility] BONE MARROW SCREENon 022 BONE MARROW SCR SEE BONE MARROW SPEC IAL REPORT FORM Normal [facility] Comment on above: Performed By: #### 5 0970 #### [facility] [address] [facility] [place] [address], [facility] CBC W/DIFFon 11-09-2021 ABS IMM GRANS 0.0 10*3/uL Normal 0.0-0.2 [facility] Comment on above: Performed By: #### 5 010, 69875 #### [facility] [address] [place] [address], [facility] ABS NEUTROPHILS 2.4 10*3/uL Normal 1.6-7.6 [facility] Comment on above: Performed By: #### 5 102, 26241 #### [facility] [address] [facility] [place] [address], [facility] ANISO Moderate Normal [facility] Comment on above: Performed By: #### 5 010, 53578 #### [facility] [address] [facility] [place] [address], [facility] Basophils (Bld) [#/Vol] 0.0 10*3/uL Normal 0.0-0.2 [facility] Comment on above: Performed By: #### 5 3, 47460 #### [facility] [address] [facility] [place] [address], [facility] Basophils/100 WBC (Bld) 0.6 % Normal 0.0-1.0 [facility] Comment on above: Performed By: #### 5 102, 78384 #### [facility] [address] [facility] [place] [address], [facility] ELLIPTOCYTES Slight Normal [facility] Comment on above: Performed By: #### 5 010, 49379 #### [facility] [address] [place] [address], [facility] Eosinophils (Bld) [#/Vol] 0.0 10*3/uL Normal 0.0-0.5 [facility] Comment on above: Performed By: #### 5 102, 10706 #### [facility] [address] [facility] [place] [address], [facility] Eosinophils/100 WBC (Bld) 1.2 % Normal 0.0-6.0 [facility] Comment on above: Performed By: #### 5 102, 60828 #### [facility] [address] [facility] [address] Erythrocyte distribution width (RBC) [Ratio] 26.7 % High 11.5-15.0 [facility] Comment on above: Performed By: #### 5 102, 74304 #### [facility] [address] [facility] [address] Hematocrit (Bld) [Volume fraction] 37.1 % Low 39.0-50.0 [facility] Comment on above: Performed By: #### 5 102, 07706 #### [facility] [address] [facility] [address] Hemoglobin (Bld) [Mass/Vol] 11.1 g/dL Low 13.0-17.0 [facility] Comment on above: Performed By: #### 5 010, 10931 #### [facility] [address] [facility]. [address] IMM PLATELET FRAC 4.6 % Normal 0.8-6.3 [facility] Comment on above: Performed By: #### 5 010, 61202 #### [facility] [address] [facility]. [address] IMMATURE GRANS 0.3 % Normal 0.0-1.0 [facility] Comment on above: Performed By: #### 5 010, 60617 #### [facility] [address] Lymphocytes (Bld) [#/Vol] 0.5 10*3/uL Low 1.2-4.0 [facility] Comment on above: Performed By: #### 5 102, 53565 #### [facility] [address] Lymphocytes/100 WBC (Bld) 13.5 % Low 20.0-45.0 [facility] Comment on above: Performed By: #### 5 102, 00213 #### [facility] [address] MCH (RBC) [Entitic mass] 26.9 pg Low 27.0-33.0 [facility] Comment on above: Performed By: #### 5 102, 11156 #### [facility] [address] MCHC (RBC) [Mass/Vol] 29.9 g/dL Low 32.0-35.0 [facility] Comment on above: Performed By: #### 5 102, 64616 #### [facility] [address] MCV (RBC) [Entitic vol] 90.0 fL Normal 82.0-98.0 [facility] Comment on above: Performed By: #### 5 102, 17763 #### [facility] [address] Monocytes (Bld) [#/Vol] 0.5 10*3/uL Normal 0.1-1.0 [facility] Comment on above: Performed By: #### 5 102, 01925 #### [facility] [address] MONOS 14.0 % High 5.0-12.0 [facility] Comment on above: Performed By: #### 5 102, 99757 #### [facility] [address] Neutrophils/100 WBC (Bld) 70.4 % Normal 40.0-72.0 [facility] Comment on above: Performed By: #### 5 102, 08837 #### [facility] [address] [place] [address], [place] Nucleated RBC/100 WBC (Bld) [Ratio] 0 % Normal 0-0 [facility] Comment on above: Performed By: #### 5 102, 29076 #### [facility] [address] [place] [address], [place] OVALOCYTES Slight Normal [facility] Comment on above: Performed By: #### 5 102, 59356 #### [facility] [address] [place] [address], [place] PLAT CNT 91 10*3/uL Low 150-400 [facility] Comment on above: Performed By: #### 5 102, 79745 #### [facility] [address] [place] [address], [facility] POIK Moderate Normal [facility] Comment on above: Performed By: #### 5 102, 15794 #### [facility] [address] [place] [address], [place] RBC (Bld) [#/Vol] 4.12 10*6/uL Low 4.20-5.70 [facility] Comment on above: Performed By: #### 5 102, 22754 #### [facility] [address] [place] [address], [place] WBC (Bld) [#/Vol] 3.42 10*3/uL Low 4.00-10.60 [facility] Comment on above: Performed By: #### 5 102, 78705 #### [facility] [address] [place] [address], [place] COMP METABOLIC PANELon 11-09 Albumin [Mass/Vol] 4.0 g/dL Normal 3.5-5.7 [facility] Comment on above: Performed By: #### 0 0121, 99603, 88854, 36138, 66863, 38741 #### [facility] [address] [place] [address], [facility] ALKALINE PHOSPH 64 IU/L Normal 34-104 [facility] Comment on above: Performed By: #### 0 0121, 05096, 12033, 96419, 38656, 71618 #### [facility] [address] [place] [address], [facility] ALT [Catalytic activity/Vol] 39 U/L Normal 7-52 [facility] Comment on above: Performed By: #### 0 0121, 20674, 73943, 47770, 65142, 51048 #### [facility] [address] [place] [address], [facility] AST [Catalytic activity/Vol] 39 U/L Normal 13-39 [facility] Comment on above: Performed By: #### 0 0121, 75361, 22878, 65339, 78078, 11747 #### [facility] [address] [place] [address], [place] Bilirubin [Mass/Vol] 0.6 mg/dL Normal 0.3-1.0 [facility] Comment on above: Performed By: #### 0 0121, 90733, 35900, 88886, 91303, 97329 #### [facility] [address] [place] [address], [place] Calcium [Mass/Vol] 9.2 mg/dL Normal 8.6-10.3 [facility] Comment on above: Performed By: #### 0 0121, 94014, 88652, 43807, 21169, 44548 #### [facility] [address] [place] [address], [place] Chloride [Moles/Vol] 103 mmol/L Normal 98-107 [facility] Comment on above: Performed By: #### 0 0121, 55824, 33142, 25607, 54602, 11429 #### [facility] [address] [place] [address], [place] CO2 [Moles/Vol] 27 mmol/L Normal 21-31 [facility] Comment on above: Performed By: #### 0 0121, 90594, 13718, 40659, 79379, 54308 #### [facility] [address] [place] [address], [place] Creatinine [Mass/Vol] 0.80 mg/dL Normal 0.70-1.30 [facility] Comment on above: Performed By: #### 0 0121, 45128, 49924, 46723, 53505, 74476 #### [facility] [address] [place] [address], [place] GFR/1.73 sq M.predicted among blacks MDRD (S/P/Bld) [Vol rate/Area] mL/min/{1.73_m2} Normal >60 [facility] Comment on above: Result Comment: Calc ulation may not be valid for patients over 70 years Performed By: #### 0 0121, 06818, 79348, 88807, 87663, 89835 #### [facility] [address] [place] [address], [place] GFR/1.73 sq M.predicted among non-blacks MDRD (S/P/Bld) [Vol rate/Area] mL/min/{1.73_m2} Normal >60 [facility] Comment on above: Result Comment: Calc ulation may not be valid for patients over 70 years Performed By: #### 0 0121, 73784, 32710, 56806, 06503, 53386 #### [facility] [address] [place] [address], [place] Glucose [Mass/Vol] 78 mg/dL Normal 70-100 [facility] Comment on above: Performed By: #### 0 0121, 01099, 10177, 43722, 85809, 12699 #### [facility] [address] [place] [address], [facility] Potassium [Moles/Vol] 3.9 mmol/L Normal 3.5-5.1 [facility] Comment on above: Performed By: #### 0 0121, 61582, 51684, 17359, 00796, 57723 #### [facility] [address] [place] [address], [facility] Protein [Mass/Vol] 7.3 g/dL Normal 6.0-8.3 [facility] Comment on above: Performed By: #### 0 0121, 73333, 36986, 60875, 82182, 89250 #### [facility] [address] [place] [address], [facility] Sodium [Moles/Vol] 137 mmol/L Normal 136-145 [facility] Comment on above: Performed By: #### 0 0121, 89605, 15983, 36350, 48160, 96342 #### [facility] [address] [place] [address], [place] Urea nitrogen [Mass/Vol] 11 mg/dL Normal 7-25 [facility] Comment on above: Performed By: #### 0 0121, 48151, 80415, 29270, 42963, 13147 #### [facility] [address] [place] [address], [place] FERRITINon 11-09-2021 Ferritin [Mass/Vol] 34 ng/mL Normal 24-336 [facility] Comment on above: Performed By: #### 0 0121, 00672, 01996, 73404, 79191, 06736 #### [facility] [address] [place] [address], [place] FOLATE SERUMon 11-09-2021 SERUM FOLATE 12.15 ng/mL Normal 6.60-1000.00 [facility] Comment on above: Result Comment: Norm al range reflects World Health Organization International Standard Performed By: #### 0 0121, 40276, 45981, 00382, 18713, 41927 #### [facility] [address] [place] [address], [facility] HAPTOGLOBINon 11-09-2021 HAPTOGLOBIN 43 mg/dL Normal 26-164 [facility] Comment on above: Performed By: #### 5 0103, 65953 #### [facility] [address] [facility] [place] [address], [facility] HEMATOLOGY COMPLETE EVALUATI ON siPARDIGMon 11-09-2021 RESULT Results faxed to ordering physician and sent to HIM Normal [facility] Comment on above: Result Comment: Test performed by [facility] [employer] * [address] [place] [address], [address] * [place], [place] * [phone] Agent Telegrapher: Aguilar Winston M.D. RESULTS FAXED TO [phone] Performed By: #### 5 0103, 54982 #### [facility] [address] [facility] [place] [place] [address], [facility] LDH BLOODon 11-09-2021 LDH 114 Units/L Low 140-271 [facility] Comment on above: Performed By: #### 0 0121, 26211, 73297, 09703, 46048, 68655 #### [facility] [address] [place] [address], [facility] RETICULOCYTE PANELon 022 ABSOLUTE RETICULOCYTE 0.0548 10*6/uL Normal 0.02 50-0.100 0 [facility] Comment on above: Performed By: #### 5 0103, 37050 #### [facility] [address] [place] [address], [facility] IMMATURE RETICULOCYTE FRACTION 11.0 % Normal 2.0-16.0 [facility] Comment on above: Performed By: #### 5 0103, 90508 #### [facility] [address] RETIC COUNT 1.33 % Normal 0.50-1.80 [facility] Comment on above: Performed By: #### 5 0103, 98657 #### [facility] [address] RETICULOCYTE HEMOGLOBIN 42.0 pg High 28.0-36.0 [facility] Comment on above: Performed By: #### 5 0103, 79948 #### [facility] [facility] [address] [facility]. [address] TIBC- INCLUDES IRONon 2021 FE SATURATION 16 % Low 20-50 [facility] Comment on above: Performed By: #### 0 0121, 62732, 63774, 71926, 94141, 44001 #### [facility] [address] [facility]. [address] Iron [Mass/Vol] 67 ug/dL Normal 50-212 [facility] Comment on above: Performed By: #### 0 0121, 95133, 47524, 50707, 50738, 91119 #### [facility] [address] [facility] [place] [address], [facility] TIBC 420 mcg/dL Normal 250-450 [facility] Comment on above: Performed By: #### 0 0121, 16938, 27944, 61454, 22790, 78085 #### [facility] [address] [facility] [place] [address], [facility] UIBC 353 mcg/dL Normal 155-355 [facility] Comment on above: Performed By: #### 0 0121, 32744, 56069, 11924, 38439, 76909 #### [facility] [address] VITAMIN B12on 11-09-2021 Cobalamin (Vitamin B12) [Mass/Vol] 733 pg/mL Normal 180-914 [facility] Comment on above: Result Comment: REFE RENCE RANGES: 180-914 pg/mL Normal 145-179 pg/mL Indeterminate <145 pg/mL Deficient Performed By: #### 0 0121, 33254, 76134, 12424, 64449, 69987 #### [facility] [address] [facility] [place] [address], [facility] CBC W/DIFFon 09-15-2021 ABS IMM GRANS 0.0 10*3/uL Normal 0.0-0.2 [facility] Comment on above: Performed By: #### 5 0103 #### [facility] [address] [place] [address], [facility] ABS NEUTROPHILS 1.7 10*3/uL Normal 1.6-7.6 [facility] Comment on above: Performed By: #### 5 0103 #### [facility] [address] ANISO Moderate Normal [facility] Comment on above: Performed By: #### 5 0103 #### [facility] [address] [facility] [place] [address], [facility] Basophils (Bld) [#/Vol] 0.0 10*3/uL Normal 0.0-0.2 [facility] Comment on above: Performed By: #### 5 0103 #### [facility] [address] [facility] [place] [address], [facility] Basophils/100 WBC (Bld) 0.5 % Normal 0.0-1.0 [facility] Comment on above: Performed By: #### 5 0103 #### [facility] [address] [facility] [place] [address], [facility] ELLIPTOCYTES Slight Normal [facility] Comment on above: Performed By: #### 5 0103 #### [facility] [address] [facility] [place] [address], [facility] Eosinophils (Bld) [#/Vol] 0.0 10*3/uL Normal 0.0-0.5 [facility] Comment on above: Performed By: #### 5 0103 #### [facility] [address] [facility] [place] [place] [address], [facility] Eosinophils/100 WBC (Bld) 0.9 % Normal 0.0-6.0 [facility] Comment on above: Performed By: #### 5 0103 #### [facility] [address] [facility]. [address] Erythrocyte distribution width (RBC) [Ratio] 18.6 % High 11.5-15.0 [facility] Comment on above: Performed By: #### 5 0103 #### [facility] [address] [facility]. [address] Hematocrit (Bld) [Volume fraction] 24.4 % Low 39.0-50.0 [facility] Comment on above: Performed By: #### 5 0103 #### [facility] [address] [facility]. [address] Hemoglobin (Bld) [Mass/Vol] 6.8 g/dL Low 13.0-17.0 [facility] Comment on above: Performed By: #### 5 0103 #### [facility] [address] [facility]. [address] IMM PLATELET FRAC 6.0 % Normal 0.8-6.3 [facility] Comment on above: Performed By: #### 5 0103 #### [facility] [address] [facility] [place] [address], [facility] IMMATURE GRANS 0.0 % Normal 0.0-1.0 [facility] Comment on above: Performed By: #### 5 0103 #### [facility] [address] Lymphocytes (Bld) [#/Vol] 0.2 10*3/uL Low 1.2-4.0 [facility] Comment on above: Performed By: #### 3 #### [facility] [address] [place] [address], [facility] Lymphocytes/100 WBC (Bld) 10.9 % Low 20.0-45.0 [facility] Comment on above: Performed By: #### 102 #### [facility] [address] MCH (RBC) [Entitic mass] 22.1 pg Low 27.0-33.0 [facility] Comment on above: Performed By: #### 102 #### [facility] [address] MCHC (RBC) [Mass/Vol] 27.9 g/dL Low 32.0-35.0 [facility] Comment on above: Performed By: #### 5 102 #### [facility] [address] MCV (RBC) [Entitic vol] 79.2 fL Low 82.0-98.0 [facility] Comment on above: Performed By: #### 5 3 #### [facility] [address] [place] [address], [facility] Monocytes (Bld) [#/Vol] 0.3 10*3/uL Normal 0.1-1.0 [facility] Comment on above: Performed By: #### 102 #### [facility] [address] MONOS 12.2 % High 5.0-12.0 [facility] Comment on above: Performed By: #### 5 102 #### [facility] [address] [place] [address], [facility] Neutrophils/100 WBC (Bld) 75.5 % High 40.0-72.0 [facility] Comment on above: Performed By: #### 5 3 #### [facility] [address] [place] [address], [place] Nucleated RBC/100 WBC (Bld) [Ratio] 0 % Normal 0-0 [facility] Comment on above: Performed By: #### 5 102 #### [facility] [address] [place] [address], [facility] OVALOCYTES Slight Normal [facility] Comment on above: Performed By: #### 5 102 #### [facility] [address] [place] [address], [facility] PLAT CNT 91 10*3/uL Low 150-400 [facility] Comment on above: Performed By: #### 5 3 #### [facility] [address] [facility] [place] [address], [facility] POIK Moderate Normal [facility] Comment on above: Performed By: #### 5 102 #### [facility] [address] [facility] [place] [address], [facility] POLY Slight Normal [facility] Comment on above: Performed By: #### 5 102 #### [facility] [address] [facility] [place] [address], [facility] RBC (Bld) [#/Vol] 3.08 10*6/uL Low 4.20-5.70 [facility] Comment on above: Performed By: #### 5 102 #### [facility] [address] [place] [address], [place] WBC (Bld) [#/Vol] 2.21 10*3/uL Low 4.00-10.60 [facility] Comment on above: Performed By: #### 5 102 #### [facility] [address] [place] [address], [facility] COMP METABOLIC PANELon 09-15 Albumin [Mass/Vol] 3.6 g/dL Normal 3.5-5.7 [facility] Comment on above: Performed By: #### 5 102, 76875 #### [facility] [address] [place] [address], [facility] ALKALINE PHOSPH 57 IU/L Normal 34-104 [facility] Comment on above: Performed By: #### 5 102, [id number] #### [facility] [address] [place] [address], [place] ALT [Catalytic activity/Vol] 24 U/L Normal 7-52 [facility] Comment on above: Performed By: #### 102, 01515 #### [facility] [address] [place] [address], [facility] AST [Catalytic activity/Vol] 29 U/L Normal 13-39 [facility] Comment on above: Performed By: #### 5 102, [id number] #### [facility] [address] [place] [address], [facility] Bilirubin [Mass/Vol] 0.5 mg/dL Normal 0.3-1.0 [facility] Comment on above: Performed By: #### 5 102, 02470 #### [facility] [address] [place] [address], [facility] Calcium [Mass/Vol] 8.8 mg/dL Normal 8.6-10.3 [facility] Comment on above: Performed By: #### 5 102, 26624 #### [facility] [address] [place] [address], [place] Chloride [Moles/Vol] 104 mmol/L Normal 98-107 [facility] Comment on above: Performed By: #### 5 102, 81855 #### [facility] [address] [place] [address], [place] CO2 [Moles/Vol] 26 mmol/L Normal 21-31 [facility] Comment on above: Performed By: #### 5 010, 07430 #### [facility] [address] [place] [address], [place] Creatinine [Mass/Vol] 0.79 mg/dL Normal 0.70-1.30 [facility] Comment on above: Performed By: #### 5 010, 47002 #### [facility] [address] [place] [address], [place] GFR/1.73 sq M.predicted among blacks MDRD (S/P/Bld) [Vol rate/Area] mL/min/{1.73_m2} Normal >60 [facility] Comment on above: Result Comment: Calc ulation may not be valid for patients over 70 years Performed By: #### 5 010, 30156 #### [facility] [address] [place] [address], [place] GFR/1.73 sq M.predicted among non-blacks MDRD (S/P/Bld) [Vol rate/Area] mL/min/{1.73_m2} Normal >60 [facility] Comment on above: Result Comment: Calc ulation may not be valid for patients over 70 years Performed By: #### 5 0103, 23955 #### [facility] [address] [place] [address], [place] Glucose [Mass/Vol] 123 mg/dL High 70-100 [facility] Comment on above: Performed By: #### 5 0103, 22519 #### [facility] [address] [place] [address], [place] Potassium [Moles/Vol] 3.8 mmol/L Normal 3.5-5.1 [facility] Comment on above: Performed By: #### 5 010, 73913 #### [facility] [address] [place] [address], [facility] Protein [Mass/Vol] 6.8 g/dL Normal 6.0-8.3 [facility] Comment on above: Performed By: #### 5 0103, 61386 #### [facility] [address] [place] [address], [place] Sodium [Moles/Vol] 137 mmol/L Normal 136-145 [facility] Comment on above: Performed By: #### 5 0103, 02559 #### [facility] [address] [place] [address], [facility] Urea nitrogen [Mass/Vol] 10 mg/dL Normal 7-25 [facility] Comment on above: Performed By: #### 5 0103, 97533 #### [facility] [address] [place] [address], [facility] Vital Signs Date Time Vital Sign Value Performing Clinician Facility 07-19-2023 13:00-0400 Diastolic blood pressure 74 mm[Hg] Robert Gomez Other [facility] Other 07-19-2023 13:00-0400 SaO2% (BldA) [Mass fraction] 99 % Robert Gomez Other [facility] Other 07-19-2023 13:00-0400 Systolic blood pressure 136 mm[Hg] Robert Gomez Other [facility] Other 05-09-2023 09:23-0400 Blood Pressure Location Ivaniabinh Vickey [facility] 05-09-2023 09:23-0400 Diastolic blood pressure 63 mm[Hg] Erwin Hurd [facility] 05-09-2023 09:23-0400 Heart rate 97 /min Erwin Hurd [facility] 05-09-2023 09:23-0400 SaO2% (BldA) [Mass fraction] 99 % Erwin Vickey [facility] 05-09-2023 09:23-0400 Systolic blood pressure 129 mm[Hg] Erwin Vickey [facility] 04-08-2023 08:29-0400 Diastolic blood pressure 56 mm[Hg] Erwin Vickey [facility] 04-08-2023 08:29-0400 Heart rate 98 /min Erwin Vickey [facility] 04-08-2023 08:29-0400 Mean blood pressure 82 mm[Hg] Erwin Vickey [facility] 04-08-2023 08:29-0400 Systolic blood pressure 134 mm[Hg] Erwin Vickey [facility] 04-08-2023 08:29-0400 Heart rate 100 /min Erwin Vickey [facility] 04-08-2023 08:29-0400 SaO2% (BldA) [Mass fraction] 100 % Erwin Vickey [facility] 04-08-2023 08:29-0400 Respiratory rate 17 /min Erwin Vickey [facility] 04-08-2023 08:29-0400 Diastolic blood pressure 66 mm[Hg] Erwin Vickey [facility] 04-08-2023 08:29-0400 Mean blood pressure 85 mm[Hg] Erwin Vickey [facility] 04-08-2023 08:29-0400 Systolic blood pressure 124 mm[Hg] Erwin Vickey [facility] 03-10-2023 12:03-0400 Hourly Rounding Ramos HERRING [facility] 03-10-2023 12:03-0400 Promise to Return [facility] 03-10-2023 11:37-0400 Heart rate 75 /min [facility] 03-10-2023 11:37-0400 SaO2% (BldA) [Mass fraction] 100 % [facility] 03-10-2023 11:37-0400 Body temperature 97.7 [degF] [facility] 03-10-2023 11:37-0400 Diastolic blood pressure 54 mm[Hg] [facility] 03-10-2023 11:37-0400 Mean blood pressure 81 mm[Hg] [facility] 03-10-2023 11:37-0400 Systolic blood pressure 136 mm[Hg] [facility] 03-10-2023 11:00-0400 Hourly Rounding [facility] 03-10-2023 11:00-0400 Promise to Return [facility] 03-10-2023 10:00-0400 Hourly Rounding [facility] 03-10-2023 10:00-0400 Promise to Return [facility] 03-10-2023 08:48-0400 gluc 116 mg/dL [facility] 03-10-2023 08:13-0400 Heart rate 118 /min [facility] 03-10-2023 08:13-0400 SaO2% (BldA) [Mass fraction] 96 % [facility] 03-10-2023 08:13-0400 Body temperature 98.06 [degF] [facility] 03-10-2023 08:12-0400 Diastolic blood pressure 69 mm[Hg] [facility] 03-10-2023 08:12-0400 Mean blood pressure 90 mm[Hg] [facility] 03-10-2023 08:12-0400 Systolic blood pressure 131 mm[Hg] [facility] 03-10-2023 00:40-0400 Blood Pressure Location [facility] 03-10-2023 00:40-0400 Body temperature 97.7 [degF] [facility] 03-10-2023 00:40-0400 Diastolic blood pressure 65 mm[Hg] [facility] 03-10-2023 00:40-0400 Heart rate 120 /min [facility] 03-10-2023 00:40-0400 Mean blood pressure 80 mm[Hg] [facility] 03-10-2023 00:40-0400 Respiratory rate 18 /min [facility] 03-10-2023 00:40-0400 SaO2% (BldA) [Mass fraction] 97 % [facility] 03-10-2023 00:40-0400 Systolic blood pressure 109 mm[Hg] [facility] 03-09-2023 17:18-0400 gluc 98 mg/dL [facility] 03-09-2023 11:50-0400 gluc 219 mg/dL [facility] 03-09-2023 09:22-0400 Heart rate 116 /min [facility] 03-09-2023 03:42-0400 Mean blood pressure 94 mm[Hg] [facility] 03-08-2023 16:08-0400 Mean blood pressure 100 mm[Hg] [facility] 03-08-2023 16:00-0400 Respiratory rate 18 /min [facility] 03-08-2023 11:00-0400 Respiratory rate 16 /min [facility] 03-08-2023 05:51-0400 Body temperature 97.16 [degF] [facility] 03-08-2023 05:51-0400 Mean blood pressure 105 mm[Hg] [facility] 03-07-2023 21:15-0400 Body temperature 98.06 [degF] [facility] 03-06-2023 09:34-0400 Heart rate 92 /min [facility] 03-05-2023 08:00-0400 Heart rate 84 /min [facility] 03-03-2023 12:51-0400 Body temperature 98.42 [degF] [facility] 03-03-2023 12:51-0400 Respiratory rate 17 /min [facility] 03-03-2023 12:40-0400 Respiratory rate 18 /min [facility] 03-03-2023 12:35-0400 Respiratory rate 18 /min [facility] 03-03-2023 12:26-0400 Body temperature 98.06 [degF] [facility] 03-01-2023 18:04-0400 Heart rate 120 /min [facility] 03-01-2023 17:45-0400 Heart rate 113 /min [facility] 03-01-2023 16:45-0400 Heart rate 108 /min [facility] 02-23-2023 11:14-0400 gluc [facility] 02-17-2023 10:28-0400 [facility] 02-17-2023 10:28-0400 Diastolic blood pressure 63 mm[Hg] Erwin Hurd [facility] 02-17-2023 10:28-0400 Heart rate 108 /min Erwin Hurd [facility] 02-17-2023 10:28-0400 SaO2% (BldA) [Mass fraction] 100 % Erwin Hurd [facility] 02-17-2023 10:28-0400 Systolic blood pressure 117 mm[Hg] Erwin Hurd [facility] 02-15-2023 16:53-0400 Diastolic blood pressure 85 mm[Hg] Brennon Hartmane [facility] 02-15-2023 16:53-0400 Heart rate 108 /min Brennon Nancy [facility] 02-15-2023 16:53-0400 Mean blood pressure 109 mm[Hg] Brennon Nancy [facility] 02-15-2023 16:53-0400 Respiratory rate 18 /min Brennon Nancy [facility] 02-15-2023 16:53-0400 SaO2% (BldA) [Mass fraction] 96 % Brennon Nancy [facility] 02-15-2023 16:53-0400 Systolic blood pressure 156 mm[Hg] Brennon Nancy [facility] 02-15-2023 16:00-0400 Diastolic blood pressure 66 mm[Hg] Brennon Nancy [facility] 02-15-2023 16:00-0400 Heart rate 109 /min Brennon Nancy [facility] 02-15-2023 16:00-0400 Respiratory rate 16 /min Brennon Nancy [facility] 02-15-2023 16:00-0400 SaO2% (BldA) [Mass fraction] 100 % Brennon Nancy [facility] 02-15-2023 16:00-0400 Systolic blood pressure 154 mm[Hg] Brennon Nancy [facility] 02-15-2023 15:00-0400 Diastolic blood pressure 71 mm[Hg] Brennon Cruz [facility] 02-15-2023 15:00-0400 Heart rate 91 /min Brennon Cruz [facility] 02-15-2023 15:00-0400 SaO2% (BldA) [Mass fraction] 99 % Brennon Cruz [facility] 02-15-2023 15:00-0400 Systolic blood pressure 155 mm[Hg] Brennon Cruz [facility] 02-15-2023 11:02-0400 Body temperature 98.06 [degF] Brennon Cruz [facility] 02-15-2023 11:02-0400 Heart rate 118 /min Brennon Cruz [facility] 02-10-2023 13:15-0400 [facility] 02-10-2023 13:15-0400 Diastolic blood pressure 75 mm[Hg] Erwin Vickey [facility] 02-10-2023 13:15-0400 Heart rate 89 /min Erwin Vickey [facility] 02-10-2023 13:15-0400 SaO2% (BldA) [Mass fraction] 100 % Mohamed Vickey [facility] 02-10-2023 13:15-0400 Systolic blood pressure 119 mm[Hg] Mohamed Vickey [facility] 01-06-2023 11:40-0400 Blood Pressure Location Mohbinh Vickey [facility] 01-06-2023 11:40-0400 Diastolic blood pressure 60 mm[Hg] Mohbinh Vickey [facility] 01-06-2023 11:40-0400 Heart rate 98 /min Mohamed Vickey [facility] 01-06-2023 11:40-0400 SaO2% (BldA) [Mass fraction] 99 % Mohamed Vickey [facility] 01-06-2023 11:40-0400 Systolic blood pressure 130 mm[Hg] Mohamed Vickey [facility] 12-23-2022 14:35-0400 Blood Pressure Location Mohamed Vickey [facility] 12-23-2022 14:35-0400 Diastolic blood pressure 70 mm[Hg] Mohamed Vickey [facility] 12-23-2022 14:35-0400 Heart rate 96 /min Mohamed Vickey [facility] 12-23-2022 14:35-0400 SaO2% (BldA) [Mass fraction] 100 % Mohamed Vickey [facility] 12-23-2022 14:35-0400 Systolic blood pressure 120 mm[Hg] Mohamed Vickey [facility] 12-09-2022 11:43-0500 Blood Pressure Location Mohbinh Vickey [facility] 12-09-2022 11:43-0500 Diastolic blood pressure 69 mm[Hg] Mohamed Vickey [facility] 12-09-2022 11:43-0500 Heart rate 88 /min Mohamed Vickey [facility] 12-09-2022 11:43-0500 SaO2% (BldA) [Mass fraction] 96 % Mohamed Vickey [facility] 12-09-2022 11:43-0500 Systolic blood pressure 105 mm[Hg] Erwin Hurd [facility] 11-22-2022 11:42-0500 Blood Pressure Location Erwin Hurd [facility] 11-22-2022 11:42-0500 Diastolic blood pressure 80 mm[Hg] Erwin Hurd [facility] 11-22-2022 11:42-0500 Heart rate 75 /min Erwin Hurd [facility] 11-22-2022 11:42-0500 SaO2% (BldA) [Mass fraction] 98 % Erwin Hurd [facility] 11-22-2022 11:42-0500 Systolic blood pressure 130 mm[Hg] Erwin Hurd [facility] Encounters Encounter Date Encounter Type Care Provider Facility Start: 04-09-2024 End: 04-09-2024 ambulatory [facility] Start: 04-05-2024 End: 04-05-2024 ambulatory [facility] Start: 03-22-2024 End: 03-22-2024 ambulatory [facility] Start: 03-13-2024 End: 03-13-2024 ambulatory [facility] Start: 03-06-2024 End: 03-06-2024 ambulatory [facility] Start: 02-16-2024 End: 02-16-2024 ambulatory [facility] Start: 02-09-2024 End: 03-10-2024 ambulatory NATY MANNING [facility] Start: 02-02-2024 End: 02-02-2024 ambulatory [facility] Start: 01-19-2024 End: 01-19-2024 ambulatory Jacob Bernardo Facility:[facility] Start: 01-19-2024 End: 01-19-2024 ambulatory MD Jacob Bernardo Work Phone: [facility] Work Phone: Start: 01-19-2024 End: 01-19-2024 Departed Referred MD Jacob Bernardo Work Phone: [facility] Start: 01-04-2024 End: 01-04-2024 ambulatory [facility] [place] Start: 12-23-2023 Encounter for other preprocedural examination [facility] Start: 12-21-2023 Encounter for other preprocedural examination [facility] Start: 12-21-2023 End: 12-24-2023 Evaluation and management of inpatient [facility] Start: 12-16-2023 ambulatory [facility] Start: 12-07-2023 Orders Only Angeles Mendes [employer]CELERY STRIPPER Work Phone: [facility] Comment on above: Anemia, unspecified type (Primary Dx) Start: 12-01-2023 End: 12-01-2023 ambulatory ANGELES MENDES [facility] Start: 11-30-2023 ambulatory TANJA [place] Start: 11-19-2023 Evaluation and management of inpatient MONA JAMESON [facility] Start: 11-18-2023 [facility]: 11-18-2023 Evaluation and management of inpatient LEXUSAMY FULLER [facility] Start: 11-17-2023 Emergency department patient visit REBECCA ZUNIGA [facility] Start: 11-17-2023 End: 11-21-2023 Evaluation and management of inpatient EVELYN CLARK [facility] Start: 11-03-2023 [facility] Start: 11-02-2023 Evaluation and management of inpatient TANJA [place] Start: 11-02-2023 End: 11-08-2023 Evaluation and management of inpatient ANJELICA [facility] Start: 11-02-2023 ambulatory TANJA [place] Start: 10-31-2023 End: 11-24-2023 Pre-admission assessment Master Garcia [facility] Start: 10-26-2023 ambulatory TANJA [place] Start: 10-26-2023 End: 10-26-2023 ambulatory [facility] Start: 10-19-2023 End: 10-19-2023 ambulatory [facility] Start: 10-17-2023 End: 10-17-2023 ambulatory SALINA SLADE [facility] Start: 10-17-2023 End: [facility]: 10-12-2023 End: 10-13-2023 Emergency department patient visit GIAN HORTA [facility] Start: 10-12-2023 End: 10-12-2023 ambulatory [facility] Start: 10-05-2023 End: 10-05-2023 ambulatory [facility] Start: 09-28-2023 End: 10-10-2023 ambulatory NATY Savage NIG[facility] Start: 09-21-2023 Evaluation and management of inpatient JUHI ALLEN [facility] Start: 09-19-2023 Evaluation and management of inpatient TANJA [place] Start: 09-18-2023 [facility]: 09-18-2023 End: 09-26-2023 Evaluation and management of inpatient ROSSANA MIRZA [facility] Start: 09-18-2023 Emergency department patient visit YASIR Azar CRISTOPHER [facility] Start: 08-31-2023 End: 08-31-[address] [facility] Start: 07-21-2023 Telephone encounter Robert Gomez [facility] Start: 07-21-2023 End: 07-21-2023 ambulatory Robert Houghey Other [facility] Start: 07-19-2023 End: 07-19-2023 ambulatory Robert Gomez Other [facility] Start: 07-19-2023 Office outpatient vi sit 25 minutes Robert Gomez [facility] Start: 06-20-[address] [facility] Start: 05-16-[address] [facility] Start: 05-09-2023 End: 05-10-2023 ambulatory MD Erwin Hurd Facility:[facility] Start: 05-09-2023 End: 05-09-2023 Patient encounter procedure Erwin Hurd [facility] Start: 04-11-2023 End: 04-11-2023 ambulatory MD Erwin Hurd Facility:[facility] Start: 04-08-2023 End: 04-09-2023 ambulatory MD Erwin Hurd Facility:[facility] Start: 04-08-2023 End: 04-08-2023 Patient encounter procedure Erwin Hurd [facility] Start: 04-04-2023 End: 04-05-2023 ambulatory MD Erwin Hurd Facility:[facility] Start: 04-04-2023 End: 04-04-2023 Patient encounter procedure Erwin Hurd [facility] Start: 03-30-2023 End: 04-14-2023 Pre-admission assessment Erwin Hurd [facility] Start: 03-17-2023 End: 03-18-2023 ambulatory MD Erwin Hurd Facility:[facility] Start: 03-08-2023 End: 03-09-2023 ambulatory Bekah LAUREN Facility:[facility] Start: 02-23-2023 End: 03-10-2023 Evaluation and management of inpatient Ramos HERRING [facility] Start: 02-17-2023 End: 02-17-2023 Patient encounter procedure Erwin Hurd [facility] Start: 02-15-2023 End: 02-15-2023 Emergency department patient visit Brennon Cruz [facility] Start: 02-15-2023 End: 02-16-2023 Pre-admission assessment Erwin Hurd [facility] Start: 02-14-2023 End: 02-16-2023 Pre-admission assessment Erwin Hurd [facility] Start: 02-10-2023 End: 02-10-2023 Patient encounter procedure Erwin Hurd [facility] Start: 02-09-2023 End: 02-09-[address] GIAN HORTA Facility:[facility] Start: 01-29-2023 End: 01-29-2023 ambulatory UNKNOWN PROVIDER Facility:[facility] Start: 01-29-2023 End: 01-29-[address] GIAN HORTA Facility:[facility] Start: 01-06-2023 End: 01-06-2023 Patient encounter procedure Erwin Hurd [facility] Start: 12-23-2022 End: 12-23-2022 Patient encounter procedure Erwin Hurd [facility] Start: 12-09-2022 End: 12-09-2022 Patient encounter procedure Erwin Hurd [facility] Start: 11-29-2022 End: 11-30-2022 Pre-admission assessment Erwin Hurd [facility] Start: 11-22-2022 End: 11-22-2022 Patient encounter procedure Erwin Hurd [facility] Start: 11-13-2022 End: 11-15-2022 ambulatory [facility] Start: 11-13-2022 End: 11-13-[address] GIAN HORTA Facility:[facility] Start: 11-08-2022 End: 01-07-2023 Pre-admission assessment GIAN HORTA JR [facility] Start: 11-03-2022 Encounter for other preprocedural examination ERWIN HURD [facility] Start: 11-01-2022 End: 11-02-2022 ambulatory IVANIABINH VICKEY Facility:[facility] Start: 11-01-2022 End: 11-02-2022 Encounter for other preprocedural examination ERWIN HUDR Facility:[facility] Start: 10-20-2022 End: 10-21-[address] MARCO A OSWALD Facility:[facility] Start: 05-12-2021 End: 05-13-2021 ambulatory GIAN HORTA Facility:[facility] Procedures Date Procedure Procedure Detail Performing Clinician Start: 04-09-2024 Follow-up visit MILLI PITTMAN Start: 10-17-2023 Follow-up visit MILLI Anu ZAIN Start: 04-11-2023 Surgical debridement of wound [facility] Start: 03-03-2023 Amputation above-knee A haley HERRING Start: 11-29-2022 H/O: major vascular surgery Erwin Hurd Appendectomy Alaa ALAHMAD Cholecystectomy Alaa ALAHMAD Coronary artery bypa ss grafts x 2 Alaa ALAHMAD Femorofemoral crosso bharath bypass graft [facility] Vascular surgery (qu alifier value) Alaa ALAHMAD Vascular surgery (qu alifier value) [facility] Plan of Treatment Date Care Activity Detail Author Start: 10-12-2024 Adult [facility]ening [facility] Start: 10-12-2024 Tobacco Screening [facility] Start: 06-10-2023 COVID-19 Vaccine ( season) COVID-19 Vaccine ( season) [facility] Start: 06-10-2023 Influenza vaccination Influenza Vaccine [facility] Start: 12-12-2011 Fall Risk Screening Fall Risk Screening [facility] Start: 1996 Administration of varicella zoster vaccine Zoster (Shingles) Vaccine (1 of 2) [facility] Start: 1965 DTaP,Tdap and Td Vaccines (1 - Tdap) DTaP,Tdap and Td Vaccines (1 - Tdap) [facility] Start: 1958 Depression Screening [facility] Screening [facility] Start: 1946 Medicare Annual Wellness Visit Medicare [facility] Well[facility] Payers Date Payer Category Payer Self-pay 2022 Private Health Insurance 2004 Medicare MEDICARE MEDICAR E PART A & B [id number] 2004-Present [phone] [address] [place] [address] [id number] 1959 Medicare [id number] 1959 Private Health Insurance CLI [id number] 1946 Unknown [id number] 2.16.840.1.822003.3.579.2.6 47 1946 Unknown [id number] 2.16.840.1.389098.3.579.2.7 32 1946 Unknown [id number] 2.16.840.1.904632.3.579.2.7 32 1946 Unknown [id number] 2.16.840.1.816122.3.579.2.5 93 1946 Unknown [id number] 2.16.840.1.165648.3.579.2.5 93 1946 Unknown [id number] 2.16.840.1.046885.3.579.2.5 93 1946 Unknown [id number] 2.16.840.1.673796.3.579.2.5 93 1946 Unknown [id number] 2.16.840.1.099645.3.579.2.5 93 1946 Unknown [id number] 2.16.840.1.338875.3.579.2.3 56 1946 Unknown [id number] 2.16.840.1.922614.3.579.2.7 27 1946 Unknown [id number] 2.16.840.1.039449.3.579.2.7 27 1946 Unknown [id number] 2.16.840.1.653711.3.579.2.7 27 1946 Unknown [id number] 2.16.840.1.583881.3.579.2.7 27 1946 Unknown [id number] 2.16.840.1.505222.3.579.2.7 27 1946 Unknown [id number] 2.16.840.1.940010.3.579.2.7 27 1946 Unknown [id number] 2.16.840.1.656532.3.579.2.7 27 1946 Unknown [id number] 2.16.840.1.063852.3.579.2.7 27 1946 Unknown [id number] 2.16.840.1.598283.3.579.2.1 286 1946 Unknown [id number] 2.16.840.1.400282.3.579.2.1 286 1946 Unknown [id number] 2.16.840.1.488334.3.579.2.1 286 1946 Unknown [id number] 2.16.840.1.770848.3.579.2.1 1946 Unknown [id number] 2.16.840.1.775208.3.579.2.1 1946 Unknown [id number] 2.16.840.1.517648.3.579.2.1 286 1946 Unknown [id number] 2.16.840.1.498948.3.579.2.1 286 1946 Unknown [id number] 2.16.840.1.418288.3.579.2.1 286 1946 Unknown [id number] 2.16.840.1.173009.3.579.2.1 286 1946 Unknown [id number] 2.16.840.1.656868.3.579.2.1 286 1946 Unknown [id number] 2.16.840.1.691115.3.579.2.1 286 1946 Unknown [id number] 2.16.840.1.170483.3.579.2.1 286 1946 Unknown [id number] 2.16.840.1.011204.3.579.2.1 286 1946 Unknown [id number] 2.16.840.1.784403.3.579.2.1 286 Unknown [id number] Social History Date Type Detail Facility Start: 11-22-2022 End: 07-28-2023 Tobacco smoking status Ex-smoker (finding) [facility] Tobacco smoking status Never Noe [facility] Start: 11-20-2020 End: 10-12-2023 Sex Assigned At Male [facility] History of tobacco use Current smoker [facility] History of tobacco use Cigarette Smoker [facility] Start: 07-28-2023 Tobacco use and exposure Smokeless tobacco non-user [facility] Start: 10-12-2023 Alcohol intake Ex-drinker (finding) [facility] Start: 11-20-2020 End: 10-12-2023 History of Social function [facility] Start: 1945 Sex Assigned At Not on file [facility] Start: 1945 Sex Assigned At Male Schu[facility] Functional Status Date Assessment Result Facility 05-09-2023 Functional Status No [facility] 04-08-2023 Functional Status No [facility] 02-23-2023 Functional Status N/A [facility] 02-23-2023 Functional Status [facility] 02-17-2023 Functional Status N/A [facility] 02-15-2023 Functional Status N/A [facility] 02-10-2023 Functional Status No [facility] 01-06-2023 Functional Status No [facility] 12-23-2022 Functional Status No [facility] 12-09-2022 Functional Status No [facility] 11-22-2022 Functional Status No [facility] Clinical Notes 01-29-2023 to 04-09-2024 Note Date & Type Note Facility 04-09-2024 Note [facility] 01-04-2024 Note [facility] 12-24-2023 Note [facility] 12-24-2023 Note [facility] 12-23-2023 Note [facility] 12-23-2023 Note [facility] 12-23-2023 Note [facility] 12-23-2023 Note [facility] No pre-cert is needed but awaiting medical readiness. Pt/family aware. AVS updated. UPDATE 3:20PM- Pt medically ready but SNF not able to accept until tomorrow. has been updated. [facility] 12-23-2023 Note [facility] 12-22-2023 Note [facility] 12-22-2023 Note [facility] 12-22-2023 Note [facility] 12-22-2023 Note [facility] 12-22-2023 Note [facility] 12-21-2023 Note [facility] 12-21-2023 Note [facility] 12-16-2023 Note Notes in intellicure Patient for above kne amputation due to the gangrene of the stump [facility] 12-07-2023 Note [facility] 12-05-2023 Note [facility] 12-01-2023 Note [facility] 11-30-2023 Note [facility] 11-21-2023 Note Patient will be retu rning to [facility] this evening by [facility]. First available is 8:45pm. Let the facility and patient's know the discharge time. Sent the AVS to [facility]. [facility] 11-21-2023 Note [facility] 11-20-2023 Note hospitalist notified by nursing staff that patient spiked a temperature of 102 ???F during his posttransfusion vitals. Spoke with blood bank and they stated to order transfusion reaction protocol and they would contact nursing for further instructions. [facility] 11-20-2023 Note [facility] 11-20-2023 Note [facility] 11-20-2023 Note [facility] 11-20-2023 Note [facility] 11-20-2023 Note [facility] 11-19-2023 Note [facility] 11-19-2023 Note [facility] 11-18-2023 Note [facility] 11-18-2023 Note [facility] 11-18-2023 Note [facility] 11-18-2023 Note [facility] 11-08-2023 Note [facility] 11-08-2023 Note [facility] 11-08-2023 Note [facility] 11-08-2023 Note [facility] 11-08-2023 Note [facility] 11-07-2023 Note [facility] 11-07-2023 Note [facility] 11-07-2023 Note [facility] 11-07-2023 Note This report has been cancelled. [facility] 11-07-2023 Note [facility] 11-07-2023 Note Sent updates to 3 fo llowing SNF's but still needing OT/PT evals before they can accept. Requested orders be placed. UPDATE 2:20PM- Pt/'s 1st SNF choice [facility] stated they will be able to accept. Updated Ijeoma by phone and updated AVS. [facility] 11-06-2023 Note knockup worker spoke with patient's Ijeoma. Ijeoma reports that SN[facility] choices at 1.) [facility], 2[facility]errals sent. OTM will continue to follow. [facility] 11-06-2023 Note [facility] 11-06-2023 Note [facility] 11-05-2023 Note [facility] 11-05-2023 Note [facility] 11-04-2023 Note [facility] 11-04-2023 Note [facility] 11-04-2023 Note [facility] 11-04-2023 Note [facility] 11-04-2023 Note [facility] 11-04-2023 Note [facility] 11-03-2023 Note Spiritual Care Note Patient name: Max Sanchez Age: 77 y.o. Room: [address] [place] [address] Patients was not present. Unable to complete Advance Directives documents. [facility] 11-03-2023 Note [facility] 11-03-2023 Note [facility] 11-02-2023 Note [facility] 11-02-2023 Note [facility] 11-02-2023 Note [facility] 10-26-2023 Note [facility] 10-17-2023 Note [facility] 10-17-2023 Note [facility] 10-05-2023 Note [facility] 09-26-2023 Note [facility] 09-25-2023 Note [facility] 09-25-2023 Note [facility] 09-25-2023 Note [facility] 09-25-2023 Note Awaiting IV antibiot ic approval and delivery. Sent updates to Yissel Faustin. AVS updated. OTM will continue to follow. [facility] 09-24-2023 Note [facility] 09-24-2023 Note [facility] 09-24-2023 Note [facility] 09-24-2023 Note [facility] 09-23-2023 Note [facility] 09-23-2023 Note [facility] 09-23-2023 Note [facility] 09-23-2023 Note [facility] 09-22-2023 Note [facility] 09-22-2023 Note [facility] 09-22-2023 Note [facility] 09-22-2023 Note [facility] 09-22-2023 Note [facility] 09-22-2023 Note [facility] 09-22-2023 Note This report has been cancelled. [facility] 09-21-2023 Note [facility] 09-21-2023 Note [facility] 09-20-2023 Note [facility] 09-20-2023 Note [facility] 09-20-2023 Note [facility] 09-20-2023 Note [facility] 09-19-2023 Note [facility] 09-19-2023 Note [facility] 09-18-2023 Note [facility] 08-31-2023 Note Continue IV antibiot ics and serial examination. [facility] 08-31-2023 Note [facility] 08-12-2023 Note Scheduled EGD/Cln/An emia/GI Bleed/EV 08/15/23 @1230, [facility], Dr. Velasquez [facility], #[id number]. Urgent referral from Dr. Horta scanned in Media 08/12/23. Patient holding blood thinner since 07/12/23. 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 Therapy with home health for prosthetic training when obtained-patie nt reports has this in place If tolerates temp prosthesis can f/u 3-6 months for final definitive prosthesis evaluation/pre scription. Monitor for skin breakdown. [facility] Other [id number] NoteAKA stump and physical therapy. Follow- up in a year.[facility] NoteContinue wound VAC and follow-up in a month. [facility]08-07-2023 [facility]2023 [id number]:127[place] [facility]06-01-2023 Evaluation + Plan noteExtracted from: Title:Discharge Note Author:PREETHI Alison RUTLEDGEe Date:03/10/23 Hemodynamically stable condi tion Discharge To, Anticipated II - Residential Unit Discharged to - Home with family [...] Oral, Supper nystatin 100,000 units/mL Oral Susp, [id number] unit(s)= 15 mL, Oral, QIDACHS oxymetazoline Nasal 0.05% [place], 2 spray(s), Nasal, BID, PRN senna 8.6 mg Tab, 17.2 mg= 2 tab(s), Oral, BID, PRN SEROquel 25 mg Tab, 25 mg= 1 tab(s), Oral, Bedtime sodium chloride nasal 0.65% spray, 2 spray(s), Nasal, q2hr, PRN Verquvo 10 mg oral tablet, 10 mg= 1 tab(s), Oral, Daily With When Contact Information GIAN HORTA In 3 days 02/28/2023 EDT [address] [place] [address] Business (1) Additional Instructions: The office is closed on Fridays. Please contact your PCP on Tuesday, February 28 for an appointment. Thank you! Chong Coe Within 7 to 10 days [address] [place] [address]- Business (1) Additional Instructions: Erwin Hurd Within 5 to 7 days [address] [place] [address]- Business (1) Additional Instructions: Dami WISE, TAL Guidry Within 2 to 4 weeks [address] [place] [address]- Additional Instructions: Diabetes Mellitus and Nutrition, Adult Diabetes Mellitus and Foot Care Wound Infection, [id number] Extracted from: Title:APSO Note Author:Megan DONIS Date:03/09/23 [...] of right lower extremity (I70.221: Atherosclerosis of [place] arteries of extremities with rest pain, right leg) - Atherosclerosis of [place] arteries of extremities with rest pain, right [...] ID. Dressing changes as per orders. 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 -Severe malnutrition, dietitian consult [...] - afrin Orders: oxymetazoline nasal, 2 spray(s), [place], Nasal, TID for 72 hour(s), Stop date [...] of right lower extremity (I70.221: Atherosclerosis of [place] arteries of extremities with rest pain, right leg) - Atherosclerosis of [place] arteries of extremities with rest pain, right [...] of right lower extremity (I70.221: Atherosclerosis of [place] arteries of extremities with rest pain, right [...] of right lower extremity (I70.221: Atherosclerosis of [place] arteries of extremities with rest pain, right leg) - Atherosclerosis of [place] arteries of extremities with rest pain, right [...] of right lower extremity (I70.221: Atherosclerosis of [place] arteries of extremities with rest pain, right [...] procedure, unspecified, initial encounter) - Atherosclerosis of [place] arteries of extremities with rest pain, right leg - 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 Call out yesterday. - On ASA, plavix, pletal Ordered: [facility] Hospital Care/Day High 50 Minutes [id number] 2. Critical limb ischemia of right lower extremity (I70.221: Atherosclerosis of [place] arteries of extremities with rest pain, right leg) - left groin infection, Dr. Hurd recommended continue wound vac to be changed every 3 days with black foam, 125 mmHg - On invanz IV daily, follow-up ID of 3 weeks of antibiotics - picc line in place Ordered: [facility] Hospital Care/Day High 50 Minutes [id number] 3. Peripheral vascular disease (I73.9: Peripheral vascular disease, unspecified) - As above Ordered: [facility] Hospital Care/Day High 50 Minutes 65742 4. Acute metabolic encephalopathy (G93.41: Metabolic encephalopathy) [...] process - Neurology consulted again today. Ordered: [facility] Hospital Care/Day High 50 Minutes [id number] 5. Anemia of chronic disease (D63.8: Anemia in other chronic diseases classified elsewhere) - Transfused 2 unit prbc 3 days ago - Hemoglobin stable - On iron infusion Ordered: [facility] Hospital Care/Day High 50 Minutes [id number] 6. Diabetes (E11.9: Type 2 diabetes mellitus without complications) - Metformin and SSI Ordered: [facility] Hospital Care/Day High 50 Minutes 08143 7. Chronic GERD (K21.9: Gastro-esophageal reflux disease without esophagitis) - Pepcid Ordered: [facility] Hospital Care/Day High 50 Minutes 84557 8. No contraindication to deep vein thrombosis (DVT) prophylaxis (Z78.9: Other specified health status) SCDs and Lovenox Ordered: [facility] Hospital Care/Day High 50 Minutes 08399 D/C tomorrow if cleared by neurology. 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 Critical limb ischemia of right lower extremity (I70.221: Atherosclerosis of [place] arteries of extremities with rest pain, right [...] of right lower extremity (I70.221: Atherosclerosis of [place] arteries of extremities with rest pain, right [...] of right lower extremity (I70.221: Atherosclerosis of [place] arteries of extremities with rest pain, right [...] to ensure accuracy , however, inadvertently computerized set making machine operator mistakes may be present . Extracted from: Title:Progress Note * Author:Chong Coe M.D Date:03/04/23 Impression and Plan Diagnosis: Diagnosis: left groin wound fem pop infection partially treated already with 3 weeks of IV dapto/cefepime. . Orders Patient has been treated for a left groin wound postop vascular infection. Antibiotics were initially started after the infection was diagnosed at [facility]. Culture reportedly was negative per the [...] of right lower extremity (I70.221: Atherosclerosis of [place] arteries of extremities with rest pain, right [...] of right lower extremity (I70.221: Atherosclerosis of [place] arteries of extremities with rest pain, right [...] to ensure accuracy , however, inadvertently computerized set making machine operator mistakes may be present . Extracted from: Title:ANES Post-operative Note---General Author: MD Siri, Jose F Payan Date:03/03/23 Plan Transfer/Discharge: Transfer/Discharge Discharge when meets criteria ( To home ). Extracted from: Title:ANES Pre-anesthesia - Adult 19 Author:Marianne torres MD, Ahmad F Date:03/03/23 Plan [place] [employer] (ASA) physical status classification: [...] of right lower extremity (I70.221: Atherosclerosis of [place] arteries of extremities with rest pain, right [...] the as cultures apparently were done in [place]. Extracted from: Title:APSO Note Author:Shayy BALLESTEROS MD [...] 21 days, picc line in place Ordered: [facility] Hospital Care/Day High 50 Minutes 38192 2. Critical limb ischemia of right lower extremity (I70.221: Atherosclerosis of [place] arteries of extremities with rest pain, right [...] of right lower extremity (I70.221: Atherosclerosis of [place] arteries of extremities with rest pain, right [...] of right lower extremity (I70.221: Atherosclerosis of [place] arteries of extremities with rest pain, right [...] health Discharged to - Home with family correction Discharge Diet(s): Calorie Controlled- 1800 Calorie Diet [...] Oral, Supper nystatin 100,000 units/mL Oral Susp, [id number] unit(s)= 15 mL, Oral, QIDACHS Verquvo 10 mg oral tablet, 10 mg= 1 tab(s), Oral, Daily With When Contact Information GIAN HORTA In 3 days 02/28/2023 EDT [address] [place] [address] Business (1) Additional Instructions: The office is closed on Fridays. Please contact your PCP on Tuesday, February 28 for an appointment. Thank you! Diabetes Mellitus and Nutrition, Adult Diabetes Mellitus and Foot Care Wound Infection, Ukoy-ue-Vasl Discharge time >30 min Extracted from: Title:Infection Admission H&P * Author:Chong Coe M.D Date:02/25/23 Impression and Plan Diagnosis left groin wound fem pop infection partially treated already with 3 weeks of IV dapto/cefepime . Orders Patient's initial debridement on his left groin wound was done at [facility]. These records are not available for [...] Complete Bilat 04/08/23 * CV Cardiovascular 02/15/23 [facility] HospitalComment on above:Result Comment: Electronically Signed By: Serena FINNEGAN\.br\Date and Time Signed: 03/10/23 10:50 EDT\.br\Electronically Co-Signed By: West Shukla MD\.br\Date and Time Co-Signed: 03/10/23 11:19 EDT 02-[facility]-2023 [facility]Result Comment: Electronically Signed By: Huong HERRING MD.fabio\Date and Time Signed: 02/25/23 11:[id number] Hospital Discharge instructions Patient Education 02/25/2023 11:06:33 [...] Carrots. Green beans. Tomatoes. Peppers. Onions. Cucumbers. [place] sprouts. Grains Whole grains, such as whole-wheat [...] meet with a certified diabetes care and education and development manager? Do I need to meet with a dietitian? What number can I call if I have questions? When are the best times to check my blood glucose? Where to find more information: [place] Diabetes Association: diabetes.org Academy of Nutrition and Dietetics: eatright.org National Temple of Diabetes and Digestive and Kidney Diseases: [...] provider. Document Revised: 04/29/2021 Document Reviewed: 04/29/2021 [employer] Patient Education 2022 [employer]. 02/25/2023 11:06:31 Diabetes Mellitus and Foot Care Diabetes Mellitus and Foot Care Foot care is an important part of your health, especially when you have diabetes. Diabetes may cause you to have problems because of poor blood flow (circulation) to your feet and legs, which can cause your skin to: Become thinner and skin drier. Break more easily. Heal more slowly. [...] provider immediately. Where to find more information [place] Diabetes Association: www.diabetes.org Association of Diabetes Care [...] provider. Document Revised: 04/16/2021 Document Reviewed: 04/16/2021 [employer] Patient Education 2022 [employer]. 02/25/2023 11:06:09 Wound Infection, Umij-vp-Fzlz Wound Infection A wound infection happens when [...] instructions at home: Medicines Take or apply ilvo-hrc-mqvdsdy and prescription medicines only as told by [...] cannot use soap and water, use hand sales intern. ?Change your bandage as told by your [...] provider. Document Revised: 07/22/2022 Document Reviewed: 07/22/2022 [employer] Patient Education 2022 [employer]. Follow Up Care 02/23/2023 10:43:07 With:Chong Coe Address: [address] [place] [address]- Business (1) When:7 to 10 days With:Erwin Hurd Address: [address] [place] [address]- Business (1) When:5 to 7 days With:Andrea Lomax MD, NEU Address: [address] [place] [address]- When:2 to 4 weeks With:GIAN HORTA Address: [address] [address] Business (1) When:02/28/2023 Comments:The office is closed on Fridays. Please contact your PCP on February 28 for an appointment. Thank you! [facility]05-09-2023 Evaluation + Plan noteExtracted from: Title:ED Note [...] 02/15/23 12:39:00 EDT phenylephrine nasal, 2 spray(s), [place], Nasal, Once, Stop date 02/15/23 12:42:00 EDT, [...] Complete Bilat 04/08/23 * CV Cardiovascular 02/15/23 [facility]05-09-2023 Evaluation + Plan note Future Scheduled Tests Radiology* CV Cardiovascular 02/15/23 [facility]05-09-2023 Hospital Discharge instructions Follow Up Care 02/15/2023 11:01:41 With:Vinita Delgadillo Address:Unknown When:02/18/2023 16:48:28 With:Erwin Hurd Address: [address] [place] [address]- Business (1) When:02/18/2023 16:48:12 With:GIAN HORTA Address: [address] [place] [address] Business (1) When:Within 3 Day(s) [facility]04-22-2023 NotePROCEDURE: XR HIP RT 2 3V W PELVIS COMPARISON: None. HISTORY: Pain in right hip joint FINDINGS: BONES:No acute fracture or dislocation. Moderate degenerative spondylosis of the spine. Moderate bilateral hip osteoarthropathy with joint space narrowing SOFT TISSUES:Negative. No visible soft tissue swelling. EFFUSION:None visible. OTHER: Vascular calcifications with vascular stents IMPRESSION: Moderate degenerative changes Electronically authenticated by: MARIO CULLEN Date: 2023-01-29 [facility]:17[facility] Future Appointments Appointment Date:12/02/2022 08:45:00 AM Scheduled Provider:Brennon Alvarado MD Location:[facility] Appointment Type: New Patient 30 ([facility]) [facility] Future Appointments Appointment Date:12/23/2022 02:30:00 PM Scheduled Provider:Erwin Hurd MD Location:[facility] Appointment Type:Vascular Follow Up ([facility]) [facility] Future Scheduled Tests Radiology* US Aorta, IVC, Iliac Duplex 04/08/23 * US PVR Lower EXT Complete Bilat 04/08/23 [facility] Future Appointments Appointment Date:02/17/2023 10:30:00 AM Scheduled Provider:Erwin Hurd MD Location:[facility] Appointment Type:Vascular Follow Up (FT) Future Scheduled Tests Radiology* US Aorta, IVC, Iliac Duplex 04/08/23 * US PVR Lower EXT Complete Bilat 04/08/23 * CV Cardiovascular [facility]15/[facility] Future Appointments Appointment Date:03/17/2023 01:00:00 PM Scheduled Provider:Erwin Hurd MD Location:.Vascular Clinic Appointment Type:Vascular Follow Up (FT) Future Scheduled Tests Radiology* US Aorta, IVC, Iliac Duplex 04/08/23 * US PVR Lower EXT Complete Bilat 04/08/23 * CV Cardiovascular 02/15/23 [facility] Future Appointments Appointment Date:04/13/2023 09:00:00 AM Scheduled Provider: Location:.[facility] Appointment Type:US Duplex Procedures (FT) Diagnostic Tests Pending * Path. Review 04/04/23 Future Scheduled Tests Radiology* US Aorta, IVC, Iliac Duplex 04/13/23 * US PVR Lower EXT Complete Bilat 04/13/23 * CV Cardiovascular 02/15/23 [facility] Future Appointments Appointment Date:04/11/2023 12:30:00 PM Scheduled Provider: Location:[facility] Appointment Type:Surgery FT Future Scheduled Tests Radiology* CV Cardiovascular 02/15/23 [facility] noteNo InformationNortFoundations [facility] EATON Other Evaluation note* Diagnosis Anemia, unspecified type- Primary documented [facility] this encounter [facility] assessment information available [facility] Work Phone: Hisopit general Narrative - Reported* Type Description Date Medical History type II diabetes Medical History PAD Surgical History cholcystecomy Surgical History appendectomy Surgical History open heart surgery Surgical History femoral bypass Surgical History right leg amputation [facility] EATON Other Hospital course Narrative No data available for this section [facility] No data available for this section [facility] CenterInstructionsNot on filedocumented in this encounter [facility] note No data available for this section [facility] Summary Purpose Family History No Family [...] and content) DATE CREATED AUTHOR 04/29/2022 [facility] DATE CREATED AUTHOR AUTHOR'S ORGANIZ ATION 01/30/2023 [facility] DATE CREATED AUTHOR AUTHOR'S ORGANIZ ATION 02/10/2023 [facility] DATE CREATED AUTHOR AUTHOR'S ORGANIZ ATION 09/07/2023 [facility] DATE CREATED AUTHOR AUTHOR'S ORGANIZ ATION 02/06/2024 [facility] DATE CREATED AUTHOR AUTHOR'S ORGANIZ ATION 02/25/2024 [facility] DATE CREATED AUTHOR AUTHOR[facility]S ORGANIZ ATION [facility] DATE CREATED AUTHOR AUTHOR'S ORGANIZ ATION 04/07/2024 [facility] DATE CREATED AUTHOR AUTHOR'S ORGANIZ ATION 04/10/2024 [facility] Patient Care team informatio n (unrecognized section and content) Ditch 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 [facility] [facility]. provides no warranty or guarantee of the accuracy or completeness of information in this document.
== END 2024-04-25 07:20 | disposition home or self-care (01) ==
LOC: PST 07:20
PROVIDERS: PCP Internal Medicine; Visit Provider Student in an Organized Health Care Education/Training Program
DX: Z01.818 Encounter for other preprocedural examination (principal); M86.651 Other chronic osteomyelitis, right thigh

== ENCOUNTER 2024-04-26 06:16 | Day surgery (SDC) | payer MEDICARE, SELFPAY ==
[2024-04-26] VITALS (17 sets, daily range): BP systolic 156–186; BP diastolic 61–93; PULSE 56–75; TEMP 36.1; O2SAT 94–100; BMI 45.7
--- OUTSIDE RECORDS SUMMARY | 2024-04-26 06:22 | XMS_ITS | CCD ---
Author Organization [facility] Care Team Providers Care 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 Name Role Phone GIAN HORTA Primary Care [...] Unavailable RULA, DR ADKINS Primary Care Unavailable JOHN العراقي Admitting Unavailable CON ., JOHN Attending Unavailable ALYSE, MARIO Consulting Unavailable LUZ NITEO Consulting Unavailable CON ., JOHN Consulting Unavailable RULA, DR ADKINS Primary Care Unavailable DIAB ., JAZZY Admitting Unavailable DIAB ., JAZZY Consulting Unavailable DIAB ., JAZZY Attending Unavailable ERWIN HURD Attending Unavailable RULA, DR ADKINS Primary Care Unavailable ERWIN HURD Admitting Unavailable ERWIN HURD Consulting Unavailable MARGRET, DR MARCO A Badillo Admitting Unavailable MARGRET, DR MARCO A Badillo Attending Unavailable RULA, DR ADKINS Primary Care Unavailable JENNI, DR ANDREA Perdomo Consulting Unavailable MARGRET, DR MARCO A Badillo Consulting Unavailable Emma Panda Unavailable Unavailable Robert Gomez Unavailable Rula Freeman DO, Charles L Primary Care Provider MD Jacob Bernardo Attending Provider [phone] Jacob Bernardo Admitting Unavailable Jacob Bernardo Attending Unavailable MD Erwin Hurd Admitting Unavailable NONE, XXXX Referring Unavailable MD Erwin Hurd Attending Unavailable MD Erwin Hurd Admitting Unavailable NONE, XXXX Referring Unavailable MD Erwin Hurd Attending Unavailable MD Erwin Hurd Attending Unavailable MD Erwin Hurd Admitting Unavailable NONE, XXXX Referring Unavailable MD Erwin Hurd Attending Unavailable MD rEwin Hurd Admitting Unavailable MD Erwin Hurd Referring Unavailable MD Erwin Hurd Attending Unavailable MD Erwin Hurd Admitting Unavailable Bekah LAUREN Attending Unavailable MD Erwin Hurd Attending Unavailable MD Erwin Hurd Admitting Unavailable MD Erwin Hurd Referring Unavailable KAMMEANAIS CRUZ Referring Unavailable VALONE JR, GIAN L Primary Care Unavailable NATY MANNING Attending Unavailable VALONE JR, GIAN L Referring Unavailable VALONE JR, GIAN L Primary Care Unavailable KAMMEANAIS CRUZ Referring Unavailable VALONE JR, GIAN L Primary Care Unavailable VALONE JR, GIAN L Primary Care Unavailable JACKIE FERNANDEZ Attending Unavailable VALONE JR, GIAN L Referring Unavailable VALONE JR, GIAN L Primary Care Unavailable NATY MANNING Attending Unavailable VALONE JR, GIAN L Referring Unavailable VALONE JR, GIAN L Primary Care Unavailable KAMMEANAIS CRUZ Referring Unavailable VALONE JR, GIAN L Primary Care Unavailable KAMMEANAIS CRUZ Referring Unavailable VALONE JR, GIAN L Primary [...] Attending Unavailable ERWIN HURD Attending Unavailable PAUL CHENG Attending Unavailable TANJA NUGENT Attending Unavailable EDUARDO, EVELYN Admitting Unavailable MONA JAMESON Consulting Unavailab JOHNATHAN Stoll Attending Unavailable ROSSANA MIRZA Referring Unavailable VICKEY, MOHAMED Admitting Unavailable VICKEY, MOHAMED Attending Unavailable ANAIS VAZQUEZ Consulting Unavailable NAZZAL, ALEXANDRIER Attending Unavailable NAZZAL, MUNIER Admitting Unavailable NAZZAL, MUNIER Attending Unavailable JONNY, LEXUS Referring Unavailable GANGWANI, MONA MANE Referring Unavailab le VICKEY, MOHAMED Attending Unavailable NUGENT, TANJA Referring Unavailable NAZZAL, MUNIER Referring Unavailable VICKEY, MOHAMED Referring Unavailable PERSALINA MEZA Attending Unavailable JIMMY OWUSU Attending Unavailable JAVIER GARCIA Attending Unavailable NUGENT, TANJA Attending Unavailable VICKEY, ERWIN Attending Unavailable NUGENT, TANJA Attending Unavailable NAZZAL, MUNIER Referring Unavailable NAZZAL, MUNIER Admitting Unavailable NAZZAL, MUNIER Attending Unavailable YASIR NICHOLAS Referring Unavailable VICKEY, MOHAMED Admitting Unavailable VICKEY, MOHAMED Attending Unavailable TOFLINTIM, REBECCA Referring Unavailable GANGWANI, MONA MANE Referring Unavailab le ALEJANDRO, JUHI Referring Unavailable NUGENT, TANJA Referring Unavailable CLIFFEL, ELIANA Referring Unavailable ENIX, ANGELES Attending Unavailable JR Gian Horta Primary Care Provider [phone] JR Gian Horta Referring Provider DO Albino Lizama II Attending Provider [phone] Allergies Allergy Classification Reported Allergen(s) Allergy Type Date of Onset Reaction(s) Facility (8 sources) Codeine; Translations: [codeine] Drug Allergy 08-20-20 09 [facility] Repository (9 sources) Iodine; Translations: [iodine] Drug Allergy 08-20-20 09 Unknown [facility] Repository (3 sources) Levamisole; Translations: [Phenergan] Drug Allergy 04-03-20 21 [facility] Repository (4 sources) Shellfish; Translations: [shellfish] Drug allergy (disorder) 08-20-20 09 Vomiting (disorder) [facility] Repository (20 sources) Codeine; Translations: [codeine] Drug Allergy 10-07-20 22 Vomitus (substance), Vomiting [facility] (18 sources) Iodine; Translations: [iodine] Drug Allergy 09-30-20 Vomitus (substance), Vomiting [facility] (20 sources) Promethazine; Translations: [promethazine] Drug Allergy 10-07-20 Vomitus (substance), Vomiting [facility] (1 source) Iodine and Iodide Containing Products Drug allergy (disorder) [facility] Repository (6 sources) Shellfish; Translations: [shellfish] Drug allergy 10-07-20 Vomiting (disorder), Vomiting [facility] (7 sources) DAPTOmycin; Translations: [DAPTOMYCIN] Drug Allergy 07-19-20 [facility] [employer] Other (3 sources) cefepime; Translations: [CEFEPIME] Drug Allergy 07-28-20 [facility] (4 sources) Iodinated Contrast Media; Translations: [IODINATED CONTRAST MEDIA] Propensity to adverse reactions to drug [facility] (4 sources) Shellfish; Translations: [shellfish derived] Allergy to substance 10-07-20 [facility] (1 source) Codeine Drug Allergy 07-19-20 [facility] Repository (1 source) DAPTOmycin Drug Allergy 07-19-20 [facility] Repository (1 source) Iodine Drug Allergy 07-19-20 [facility] Repository (1 source) Promethazine Drug Allergy 07-19-20 [facility] Repository (2 sources) SHELLFISH CONTAINING PRODUCTS; Translations: [SHELLFISH CONTAINING PRODUCTS] Propensity to adverse reactions to food (disorder) 10-07-20 [facility] Medications Current Medications Medication Drug Class(es) Dates Sig (Normalized) Sig (Original) acarbose 100 mg oral tablet (1 source) alpha-Glucosidas e Inhibitor Start: 04-23-2024 take 100 mg by mouth once daily Acarbose Active 100 MG PO Daily April 23, 2024 12:00am acetaminophen 500 mg oral tablet (6 sources) Start: 04-20-2024 take 1 tablet by mouth every six hours Acetaminophen (Tylenol Extra Strength) 500 mg tablet Active 500 MG PO Every 6 hours April 20, 2024 12:00am Start: 03-10-2023 take 2 tablets by mo ut every six hours as needed for pain acetaminophen 325 mg Tab 650 mg = 2 tab(s), Oral, q6hr, PRN Pain, Refills(s) 0 Start Date: 03/10/23 Status: Ordered take 1 tablet by joyce every six hours as needed for pain acetaminophen (TYLENOL EXTRA STRENGTH) 500 mg tablet Take 1 tablet (500 mg total) by mouth every 6 (six) hours as needed for pain. 0 Active apixaban 5 mg oral tablet (15 sources) Factor Xa Inhibitor Start: 12-09-2022 take 1 tablet by mouth twice daily Eliquis 5 mg oral tablet 5 mg = 1 tab(s), Oral, BID, Refills(s) 0, Blood Thinner Start Date: 04/08/23 Status: Ordered aspirin 81 mg delayed release oral tablet (13 sources) Platelet Aggregation Inhibitor, Nonsteroidal Anti-inflammatory Drug Start: 11-26-2022 take 1 tablet by mouth once daily aspirin 81 mg Oral EC Tab 81 mg = 1 tab(s), Oral, Daily, # 30 tab(s), Refills(s) 0, Blood Thinner Start Date: 02/23/23 Status: Ordered biotin 10 mg oral tablet (20 sources) Start: 04-20-2024 take 10 mg by mouth once daily Biotin Active 10 MG PO Daily April 20, 2024 12:00am Start: 02-23-2023 take 1 tablet by joyce twice daily biotin 300 mcg oral tablet 300 mcg = 1 tab(s), Oral, BID, # 60 tab(s), Refills(s) 0, Prophylaxis Start Date: 02/23/23 Status: Ordered Start: 11-26-2022 biotin Refills (s) 0 Start Date: 11/26/22 Status: Ordered take 1 tablet by joyce in the evening biotin 10 mg tablet Take 10 mg by mouth in the evening. 0 Active Biotin 00645 MCG as directed Orally bid Active carvedilol 3.125 mg oral tablet (10 sources) alpha-Adrenergic Zuleima, beta-Adrenergic Zuleima Start: 11-26-2022 take 1 tablet by mouth twice daily carvedilol 3.125 mg Tab take 1 tablet by mouth twice a day Start Date: 11/26/22 Status: Ordered Zyrtec (10 sources) Histamine-1 Receptor Antagonist Start: 11-26-2022 Zyrtec Refills(s) 0 Start Date: 11/26/22 Status: Ordered Cholecalciferol (20 sources) Vitamin D Start: 04-20-2024 take 10 ug by mouth once daily Cholecalciferol (Vitamin D3) Active 10 MCG PO Daily April 20, 2024 12:00am Start: 02-23-2023 take 1 tablet by joyce th once daily cholecalciferol 1000 intl units (25 mcg) oral tablet 50 mcg = 2 tab(s), Oral, Daily, # 30 tab(s), Refills(s) 0, Prophylaxis Start Date: 02/23/23 Status: Ordered Start: 11-26-2022 cholecalcifero l Refills(s) 0 Start Date: 11/26/22 Status: Ordered take 2 tablets by mo [facility] in the morning cholecalciferol, vitamin D3, 10 mcg (400 unit) capsule Take 2 tablets by mouth in the morning. 0 Active take 1 capsule by mo [facility] every twenty-four hours Vitamin D3 1000 UNIT 1 capsule Orally Once a day Active clopidogrel 75 mg oral tablet (11 sources) P2Y12 Platelet Inhibitor Start: 12-09-2022 take 1 tablet by mouth once daily clopidogrel 75 mg Tab 75 mg = 1 tab(s), Oral, Daily Start Date: 12/09/22 Status: Ordered dexamethasone 4 mg oral tablet (1 source) Corticosteroid Start: 04-23-2024 take 4 mg by mouth once daily Dexamethasone Active 4 MG PO Daily April 23, 2024 12:00am digoxin 0.125 mg oral tablet (20 sources) Cardiac Glycoside Start: 04-20-2024 take 125 ug by mouth once daily Digoxin Active 125 MCG PO Daily April 20, 2024 12:00am Start: 11-26-2022 take 1 tablet by joyce in the morning digoxin (LANOXIN) 125 mcg [...] # 2 cap(s), Refills(s) 0, Pharmacy: [facility] #[id number], 168, cm, 01/06/23 11:42:00 EDT, Height/Length Dosing, [...] Status: Ordered ezetimibe 10 mg oral tablet (18 sources) Dietary Cholesterol Absorption Inhibitor Start: 04-20-2024 take 5 mg by mouth once daily Ezetimibe (Zetia) 10 mg tablet Active 5 MG PO Daily April 20, 2024 12:00am Start: 11-26-2022 take 1 tablet by joyce th once daily ezetimibe 10 mg Tab 10 mg = 1 tab(s), Oral, Daily, Refills(s) 0, High cholesterol Start Date: 04/08/23 Status: Ordered take 0.5 tablet by m outh once daily Zetia 10 MG 1/2 tablet Orally Once a day Active famotidine 40 mg oral tablet (20 sources) Histamine-2 Receptor Antagonist Start: 04-20-2024 take 40 mg by mouth once daily Famotidine Active 40 MG PO Daily April 20, 2024 12:00am Start: 11-26-2022 take 1 tablet by joyce th in the morning, then take 1 tablet [...] a day Active ferrous sulfate 325 mg delayed release oral tablet (16 sources) Start: 04-20-2024 take 325 mg by mouth once daily Ferrous Sulfate Active 325 MG PO Daily April 20, 2024 12:00am Start: 04-08-2023 take 1 tablet by joyce [...] 0, Prophylaxis Start Date: 02/23/23 Status: Ordered Misc DME Prescription (4 sources) Start: 04-06-2023 montelukast 10 mg oral tablet (14 sources) Leukotriene Receptor Antagonist Start: 04-20-2024 take 10 mg by mouth once daily Montelukast Active 10 MG PO Daily April 20, 2024 12:00am Start: 11-26-2022 take 1 tablet by joyce th once daily montelukast 10 mg Tab take 1 tablet by mouth once daily Start Date: 11/26/22 Status: Ordered nystatin 188958 unt/ml oral suspension (2 sources) Polyene Antifungal Start: 02-23-2023 nystatin 100,000 units/mL Oral Susp 1,500,000 unit(s) = 15 mL, Oral, QIDACHS, Refills(s) 0 Start Date: 02/23/23 Status: Ordered omeprazole 40 mg delayed release oral capsule (2 sources) Proton Pump Inhibitor take 1 capsule by mouth once daily Omeprazole 40 MG 1 capsule 30 minutes before morning meal Orally Once a day Active oxyCODONE hydrochloride [...] study, # 3 tab(s), Refills(s) 0, Pharmacy: [facility] #[id number], 168, cm, 01/06/23 11:42:00 EDT, Height/Length Dos... Start Date: 02/10/23 Status: Ordered QUEtiapine 25 mg oral tablet (2 sources) Atypical Antipsychotic Start: 03-10-2023 take 1 tablet by mouth at bedtime SEROquel 25 mg Tab 25 mg = 1 tab(s), Oral, Bedtime, Refills(s) 0 Start Date: 03/10/23 Status: Ordered rosuvastatin calcium 40 mg oral tablet (17 sources) HMG-CoA Reductase Inhibitor Start: 04-23-2024 take 1 tablet by mouth once daily Rosuvastatin (Crestor) 40 mg tablet Active 40 MG PO Daily April 23, 2024 12:00am Start: 11-26-2022 take 1 tablet by joyce th once daily rosuvastatin 40 mg Tab 40 mg = 1 tab(s), Oral, Daily, Refills(s) 0, High cholesterol Start Date: 04/08/23 Status: Ordered sennosides, half-way 8.6 mg oral tablet (2 sources) Start: [...] Refill(s) 0 Start Date: 03/10/23 Status: Ordered valACYclovir 1000 mg oral tablet (10 sources) Herpesvirus Nucleoside Analog DNA Polymerase Inhibitor, Herpes Simplex Virus Nucleoside Analog DNA Polymerase Inhibitor, Herpes Zoster Virus Nucleoside Analog DNA Polymerase Inhibitor Start: 11-26-2022 take 1 tablet by mouth once daily valacyclovir 1 g Tab take 1 tablet by mouth once daily Start Date: 11/26/22 Status: Ordered Vericiguat (1 source) Start: 04-20-2024 take 10 mg by mouth once daily at mealtime Vericiguat Active 10 MG PO Daily April 20, 2024 12:00am must administer with a meal/food vericiguat (VERQUVO) 10 mg tablet (1 source) [...] Ordered vitamin b12 1 mg/ml injectable solution (18 sources) Vitamin B12 Start: 04-20-2024 inject 1000 ug by subcutaneous injection every month Cyanocobalamin (Vitamin B-12) Active 1000 MCG SUBCUT every month April 20, 2024 12:00am Start: 02-23-2023 inject 1 mL by subcu taneous injection every 30 days cyanocobalamin (VITAMIN B-12) [...] Drug Class(es) Dates Sig (Normalized) Sig (Original) Ascorbic Acid (12 sources) Vitamin C Start: 04-20-2024 End: 04-23-2024 take 1 g by mouth once daily Ascorbic Acid (Vitamin C) Discontinued 1 GM PO Daily April 20, 2024 12:00am April 23, 2024 2:17pm Start: 11-26-2022 take 1 tablet by joyce th once daily ascorbic acid 500 mg Tab 500 mg = 1 tab(s), Oral, Daily, # 30 tab(s), Refills(s) 0 Start Date: 11/26/22 Status: Ordered take 1 tablet by joyce th in the morning ascorbic acid, vitamin C, (vitamin C) 1000 mg tablet Take 1 tablet (1,000 mg total) by mouth in the morning. 0 Active blood administration sets blood administration set (1 [...] day(s), # 180 tab(s), Refills(s) 3, Pharmacy: [facility] #[id number], 168, cm, 05/09/23 9:37:00 EDT, Height/Length Dosing, 51.5, kg, 04/08/23 8:25:00 EDT, Weight Dosing Start Date: 05/09/23 Stop Date: 05/03/24 Status: Ordered Start: 02-10-2023 End: 03-12-2023 take 1 tablet by mouth twice daily cilostazol 100 mg Tab 100 mg = 1 tab(s), Oral, BID, X 30 day(s), # 60 tab(s), Refills(s) 0, Pharmacy: [facility] #[id number], 168, cm, 01/06/23 11:42:00 EDT, Height/Length Dosing, [...] Date: 03/09/23 Stop Date: 03/09/23 Status: Completed metFORMIN hydrochloride 500 mg oral tablet (20 sources) Biguanide Start: 04-20-2024 End: 04-23-2024 take 500 mg by mouth once daily Metformin Discontinued 500 MG PO Daily April 20, 2024 12:00am April 23, 2024 2:17pm Start: 11-26-2022 take 1 tablet by joyce th once daily metFORMIN (GLUCOPHAGE) 500 mg tablet Take 1 tablet (500 mg total) by mouth nightly. 0 11/26/2022 Active ondansetron 4 mg oral tablet (4 sources) Serotonin-3 Receptor Antagonist Start: 04-20-2024 End: 04-23-2024 take 4 mg by mouth every eight hours Ondansetron Hcl Discontinued 4 MG PO Every 8 hours April 20, 2024 12:00am April 23, 2024 2:16pm Start: 07-19-2023 take 1 tablet by joyce th every eight hours as needed ondansetron (ZOFRAN) 4 mg tablet Take 1 tablet (4 mg total) by mouth every 8 (eight) hours as needed. 0 07/19/2023 Active take 1 tablet by joyce every twenty-four hours Ondansetron HCl 4 MG 1 tablet Orally Once a day Active oxymetazoline hydrochloride 0.5 mg/ml nasal spray (2 sources) Start: 03-10-2023 oxymetazoline Nasal 0.05% [place] 2 spray(s), Nasal, BID Other (see comment), Refill(s) 0, Nose bleeds - prn use Start Date: 03/10/23 Status: Ordered pantoprazole 40 mg delayed release oral tablet (2 sources) Proton Pump Inhibitor Start: 04-20-2024 End: 04-23-2024 take 40 mg by mouth twice daily Pantoprazole Discontinued 40 MG PO Twice daily April 20, 2024 12:00am April 23, 2024 2:16pm Start: 08-15-2023 take 1 tablet by joyce th in the morning, then take 1 tablet by mouth at bedtime pantoprazole (PROTONIX) 40 mg EC tablet Take 1 tablet (40 mg total) by mouth in the morning and 1 tablet (40 mg total) before bedtime. 120 tablet 0 08/15/2023 Active traMADol hydrochloride 50 mg oral tablet (1 source) Opioid Agonist Start: 04-20-2024 End: 04-23-2024 take 50 mg by mouth every six hours Tramadol Discontinued 50 MG PO Every 6 hours April 20, 2024 12:00am April 23, 2024 2:16pm traZODone hydrochloride 50 mg oral tablet (14 sources) Serotonin Reuptake Inhibitor Start: 04-20-2024 End: 04-23-2024 take 50 mg by mouth once daily Trazodone Discontinued 50 MG PO Daily April 20, 2024 12:00am April 23, 2024 2:16pm Start: 11-26-2022 take 1-2 tablets by mouth at bedtime traZODONE 50 mg Tab TAKE 1 TO 2 TABLETS BY MOUTH AT BEDTIME Start Date: 11/26/22 Status: Ordered Problems Active Problems Problem Classification [...] disease (2 sources) Atherosclerotic heart disease of [place] coronary artery without angina pectoris; Translations: [Atherosclerotic heart disease of [place] coronary artery without angina pectoris] Onset: 4 [...] 3 Chronic Gangrene (2 sources) Atherosclerosis of [place] arteries of extremities with gangrene, left leg; Translations: [Atherosclerosis of [place] arteries of extremities with gangrene, left leg] [...] Onset: 3 Episodic Other aftercare (1 source) 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; Translations: [INTERMEDIATE CURRENT USE OF ASPIRIN] Onset: 3 Episodic Other aftercare (1 source) 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 antithrombotics/antipl atelets; Translations: [INTERMEDIATE ANTITHROMBOT/ANTIPLATL ETS] Onset: 3 Episodic Other aftercare (1 source) Other custodial (current) drug therapy; Translations: [OTH INTERMEDIATE CURRENT DRUG THERAPY] Onset: 3 Episodic Other aftercare (1 source) 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 oral hypoglycemic drugs; Translations: [INTERMEDIATE USE ORAL HYPOGLYCEMIC DX] Onset: 3 Episodic [...] Peripheral vascular disease, unspecified; Translations: [Atherosclerosis of [place] arteries of extremities with rest pain, left [...] Onset: 3 Episodic Other aftercare (3 sources) 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 anticoagulants; Translations: [INTERMEDIATE CURRNT USE ANTICOAGULANTS] Onset: 3 Episodic Other [...] 24 ABSOLUTE BASOPHIL 0.0 X10E9/L Normal 0.0-0.2 [facility] Comment on above: Performed By: #### C ROSEMARY, 3094-0, [facility] [email or web address]], 4091-3 #### [facility] ([id number]) [address] [place] [address] 21921 ABSOLUTE NEUTROPHIL 2.6 X10E9/L Normal 1.5-6.6 [facility] Comment on above: Performed By: #### C ROSEMARY, 3094-0, [facility] [email or web address]], 4091-3 #### [facility] ([id number]) [address] [place] [address] 74036 Basophils/100 WBC (Bld) 0.8 % Normal [facility] Comment on above: Performed By: #### C ROSEMARY, 3094-0, [facility] [[email or web address]], 4091-3 #### [facility] ([id number]) [address] [place] [address] 17874 Eosinophils (Bld) [#/Vol] 0.1 10*3/uL Normal 0.0-0.4 [facility] Comment on above: Performed By: #### Sammy RILEY, 3094-0, [employer], 4091-12 #### [facility] ([id number]) [address] [place] [address] 90253 Eosinophils/100 WBC (Bld) 2.2 % Normal [facility] Comment on above: Performed By: #### Sammy RILEY, 3094-0, [employer], 4091-12 #### [facility] ([id number]) [address] [place] [address] 68253 Erythrocyte distribution width (RBC) [Ratio] 19.8 % High 11.5-15.0 [facility] Comment on above: Performed By: #### Sammy RILEY, 309-0, MANA[employer], 4091-12 #### [facility] ([id number]) [address] [place] [address] 29657 Hematocrit (Bld) [Volume fraction] 27.9 % Low 39-49 [facility] Comment on above: Performed By: #### Sammy RILEY, 309-0, [employer], 4091-12 #### [facility] ([id number]) [address] [place] [address] 86101 Hemoglobin (Bld) [Mass/Vol] 9.0 g/dL Low 13.0-17.0 [facility] Comment on above: Performed By: #### Sammy RILEY, 3094-0, MANA[employer], 4091-12 #### [facility] ([id number]) [address] [place] [address] 73682 Lymphocytes (Bld) [#/Vol] 0.5 10*3/uL Low 1.0-3.5 [facility] Comment on above: Performed By: #### Sammy RILEY, 3094-0, MANAGER [employer], 4091-12 #### [facility] ([id number]) [address] [place] [address] 33970 Lymphocytes/100 WBC (Bld) 12.2 % Normal [facility] Comment on above: Performed By: #### Sammy RILEY, 3094-0, MANAGER [employer], 4091-12 #### [facility] ([id number]) [address] [place] [address] 10905 MCH (RBC) [Entitic mass] 27.1 pg Normal 27-34 [facility] Comment on above: Performed By: #### Sammy RILEY, 309-0, MANAGER [employer], 4091-12 #### [facility] ([id number]) [address] [place] [address] 67793 MCHC (RBC) [Mass/Vol] 32.1 g/dL Normal 32-36 [facility] Comment on above: Performed By: #### Sammy RILEY, 309-0, MANAGER AUTOMOTIVE, 4091-12 #### [facility] ([id number]) [address] [place] [address] 03310 MCV (RBC) [Entitic vol] 85 fL Normal 80-[address] [facility] Comment on above: Performed By: #### Sammy RILEY, 309-0, MANAGER AUTOMOTIVE, 4091-12 #### [facility] ([id number]) [address] [place] [address] 88555 Monocytes (Bld) [#/Vol] 0.7 10*3/uL Normal 0-0.9 [facility] Comment on above: Performed By: #### Sammy RILEY, 3094-0, MANAGER [employer], 4091-12 #### [facility] ([id number]) [address] [place] [address] 59220 Monocytes/100 WBC (Bld) 18.0 % Normal P [facility] Comment on above: Performed By: #### Sammy RILEY, 3094-0, MANAGER [employer], 4091-12 #### [facility] ([id number]) [address] [place] [address] 39105 Neutrophils/100 WBC (Bld) 66.8 % Normal [facility] Comment on above: Performed By: #### Sammy RILEY, 309-0, MANAGER [employer], 4091-12 #### [facility] ([id number]) [address] [place] [address] 60428 Platelet mean volume (Bld) [Entitic vol] 8.3 fL Normal 7-12 [facility] Comment on above: Performed By: #### Sammy RILEY, 3094-0, MANAGER AUTOM[employer], 4091-12 #### [facility] ([id number]) [address] [place] [address] 70356 Platelets (Bld) [#/Vol] 138 10*3/uL Low 150-450 [facility] Comment on above: Performed By: #### Sammy RILEY, 3093-0, MANAGER [employer]OM[employer], 4091-12 #### [facility] ([id number]) [address] [place] [address] 27176 RBC COUNT 3.30 X10E12/L Low 4.10-5.70 [facility] Comment on above: Performed By: #### Sammy RILEY, 309-0, MANAGER [employer]OM[employer], 4091-12 #### [facility] ([id number]) [address] [place] [address] 81305 WBC (Bld) [#/Vol] 3.9 10*3/uL Low 4.0-11.0 [facility] Comment on above: Performed By: #### Sammy RILEY, 3094-0, MANAGER [employer], 4091-12 #### [facility] ([id number]) [address] [place] [address] 53303 COMPLETE BLOOD COUNTon 03-06 Erythrocyte distribution width (RBC) [Ratio] 19.0 % High 11.5-15.0 [facility] Comment on above: Performed By: #### Sammy RILEY, 3094-0, MANAGER [employer], 4091-12 #### [facility] ([id number]) [address] [place] [address] 06268 Hematocrit (Bld) [Volume fraction] 28.1 % Low 39-49 [facility] Comment on above: Performed By: #### C ROSEMARY, 3094-0, MANAGER AUTOMOTIVE, 4091-12 #### [facility] ([id number]) [address] [place] [address] 13699 Hemoglobin (Bld) [Mass/Vol] 9.1 g/dL Low 13.0-17.0 [facility] Comment on above: Performed By: #### C ROSEMARY, 309-0, MANAGER AUTOMOTIVE, 4091-12 #### [facility] ([id number]) [address] [place] [address] 86618 MCH (RBC) [Entitic mass] 26.9 pg Low 27-34 [facility] Comment on above: Performed By: #### C ROSEMARY, 309-0, MANAGER AUTOMOTIVE, 4091-12 #### [facility] ([id number]) [address] [place] [address] 40527 MCHC (RBC) [Mass/Vol] 32.5 g/dL Normal 32-36 [facility] Comment on above: Performed By: #### C ROSEMARY, 309-0, MANAGER AUTOMOTIVE, 4091-12 #### [facility] ([id number]) [address] [place] [address] 67265 MCV (RBC) [Entitic vol] 83 fL Normal 80-100 [facility] Comment on above: Performed By: #### Sammy RILEY, 3094-0, MANAGER AUTOMOTIVE, 4091-12 #### [facility] ([id number]) [address] [place] [address] 56404 Platelet mean volume (Bld) [Entitic vol] 8.8 fL Normal 7-12 [facility] Comment on above: Performed By: #### Sammy RILEY, 3094-0, MANAGER AUTOMOTIVE, 4091-12 #### [facility] ([id number]) [address] [place] [address] 99604 Platelets (Bld) [#/Vol] 190 10*3/uL Normal 150-450 [facility] Comment on above: Performed By: #### C BCA, 3094-0, MANAGER AUTOMOTIVE, 4091-3 #### [facility] ([id number]) [address] [place] [address] 08129 RBC COUNT 3.40 X10E12/L Low 4.10-5.70 [facility] Comment on above: Performed By: #### C BCA, 3094-0, MANAGER AUTOMOTIVE, 4091-3 #### [facility] ([id number]) [address] [place] [address] 33850 WBC (Bld) [#/Vol] 5.3 10*3/uL Normal 4.0-11.0 [facility] Comment on above: Performed By: #### C BCA, 3094-0, MANAGER AUTOMOTIVE, 4091-3 #### [facility] ([id number]) [address] [place] [address] 02128 Formson 02-23-2024 Forms [id number] F Normal [facility] Sridhar 01-19-2024 L Specimen: [id number] Received: 01/23/24 Status: RASHMI Isaac Num: [id number] Spec Type: Surgical Subm Dr: Jacob Bernardo MD Tissues: A Bone - Resection (LFT FEMUR BONE AND OLD INCIS) Procedures: HE/6, Gross/Micro L2, Decalcification Age/ Patient Sex Location Account Attending Physician Tu Joy W 78/M LABELL [id number] Jacob Bernardo MD SPEC NUM: [id number] RECD: 01/23/24 STATUS: RASHMI ISAAC NUM: [id number] HEMANT: 01/19/24- SUBM DR: Jacob Bernardo MD ENTERED: 01/23/24 [facility] DR: Gordo Gonzalez SPEC TYPE: Surgical DEPT: [...] is serially sectioned revealing yellow-lui soft tissue. [employer] sections are submitted as follows: A1-A3: The margins, following decal A4: Soft tissue adherent to bone A5?A6: Skin excision to include ulcer with underlying soft tissue Specimen: [id number] Received: 01/23/24 Status: RASHMI Alicia Num: [id number] Spec Type: Surgical Subm Dr: Jacob Bernardo MD Tissues: A Bone - Resection (LFT FEMUR BONE AND OLD INCIS) Procedures: , Gross/Micro L2, Decalcification Patient: Tu Joy [id number] (Continued) Specimen: [id number] Received: 01/23/24 (Continued) Gross Description (Continued) Signed (signature on file) Rosaline Coffey MD 01/26/24 1624 Specimen: [id number] Received: 01/23/24 Status: RASHMI Isaac Num: [id number] Spec Type: Surgical Subm Dr: Jacob Bernardo MD Tissues: A Bone - Resection (LFT FEMUR BONE AND OLD INCIS) Procedures: , Gross/Micro L2, Decalcification Patient: Tu Joy [id number] (Continued) Specimen: [id number] Received: 01/23/24 (Continued) Gross Description (Continued) RG/CYC CPT Codes 18565 [id number] bone and skin bone and skin Specimen: [id number] Received: 01/23/24 Status: RASHMI Isaac Num: [id number] Spec Type: Surgical Subm Dr: Jacob Bernardo MD Tissues: A Bone - Resection (LFT FEMUR BONE AND OLD INCIS) Procedures: HE/6, Gross/Micro L2, Decalcification Patient: Tu Joy [id number] (Continued) Signed (signature on file) Lukasz-Vince Coffey MD 01/26/24 1624 Normal [facility] Follow-Upon 01-04-2024 Follow-Up Normal [facility] Orders Onlyon 01-04-2024 Orders Only Normal [facility] BASIC METABOLIC PANELon 12-08 Anion gap [Moles/Vol] 13 mmol/L Normal 7-20 [facility] Comment on above: Performed By: #### L [id number] ####[facility] ([facility])[address] [place] [address] Calcium [Mass/Vol] 8.3 mg/dL Low 8.6-10.3 [facility] Comment on above: Performed By: #### L [id number] ####[facility] ([facility])[address] [place] [address] Chloride [Moles/Vol] 97 mmol/L Low 98-107 [facility] Comment on above: Performed By: #### L [id number] ####[facility] ([facility])[address] [place] [address] CO2 [Moles/Vol] 22 mmol/L Normal 21-31 [facility] Comment on above: Performed By: #### L [id number] ####[facility] ([facility])[address] [place] [address] Creatinine [Mass/Vol] 0.44 mg/dL Low 0.70-1.30 [facility] Comment on above: Performed By: #### L [id number] ####[facility] ([facility])[address] [place] [address] GLOMERULAR FILTRATION RATE ML/MIN/1.73 SQ M.PREDICTED 109.2 mL/min/1.73m*2 Normal >60.0 [facility] Comment on above: Result Comment: [facility]???s estimated glomerular filtration rate (eGFR) [...] of individuals. Performed By: #### L [id number] ####[facility] ([facility])[address] [place] [address] Glucose [Mass/Vol] 112 mg/dL High 70-100 [facility] Comment on above: Performed By: #### L [id number] ####[facility] ([facility])[address] [place] [address] Potassium [Moles/Vol] 3.8 mmol/L Normal 3.5-5.1 [facility] Comment on above: Performed By: #### L [id number] ####[facility] ([facility])[address] [place] [address] Sodium [Moles/Vol] 128 mmol/L Low 136-145 [facility] Comment on above: Performed By: #### L [id number] ####[facility] ([facility])[address] [place] [address] Urea nitrogen [Mass/Vol] 16 mg/dL Normal 7-25 [facility] Comment on above: Performed By: #### L [id number] ####[facility] ([facility])[address] [address] UREA NITROGEN/CREATININE (MASS RATIO) IN SER/PLAS 36.4 Normal [facility] Comment on above: Performed By: #### L [id number] ####[facility] ([facility])[address] [address] CBCon 12-24-2023 Erythrocyte distribution width (RBC) [Ratio] 18.3 % High 11.5-15.0 [facility] Comment on above: Performed By: #### L [id number] ####[facility] ([facility])[address] [place] [address] ERYTHROCYTE MEAN CORPUSCULAR HEMOGLOBIN CONCENTRATION (G/DL) BY AUTOMATED 30.9 g/dL Low 32.0-35.0 [facility] Comment on above: Performed By: #### L [id number] ####[facility] ([facility])[address] [place] [address] Hematocrit (Bld) [Volume fraction] 24.9 % Low 39.0-55.0 [facility] Comment on above: Performed By: #### L [id number] ####[facility] ([facility])[address] [place] [address] Hemoglobin (Bld) [Mass/Vol] 7.7 g/dL Low 13.0-17.0 [facility] Comment on above: Performed By: #### L [id number] ####[facility] ([facility])[address] [place] [address] MCH (RBC) [Entitic mass] 27.1 pg Normal 27.0-33.0 [facility] Comment on above: Performed By: #### L [id number] ####[facility] ([facility])[address] [place] [address] MCV (RBC) [Entitic vol] 87.7 fL Normal 82.0-98.0 [facility] Comment on above: Performed By: #### L [id number] ####[facility] ([facility])[address] [place] [address] PLATELETS (10*3/UL) IN BLOOD AUTOMATED COUNT 172 10*3/uL Normal 150-400 [facility] Comment on above: Performed By: #### L [id number] ####[facility] ([facility])[address] [place] [address] RBC (Bld) [#/Vol] 2.84 10*6/uL Low 4.20-5.[address] [facility] Comment on above: Performed By: #### L [id number] ####[facility] ([facility])[address] [place] [address] WBC (Bld) [#/Vol] 9.38 10*3/uL Normal 4.00-10.[address] [facility] Comment on above: Performed By: #### L [id number] ####[facility] ([facility])[address] [place] [address] MAGNESIUMon 12-24-2023 Magnesium [Mass/Vol] 1.8 mg/dL Low 1.9-2.7 [facility] Comment on above: Performed By: #### L [id number] ####[facility] ([facility])[address] [place] [address] NURSNOTEon 12-24-2023 NURSNOTE Called [facility] at [place]. Left phone number with person who answered. Said nurse would call me back. Normal [facility] PHOSPHORUSon 12-24-2023 Magnesium [Mass/Vol] 2.8 mg/dL Normal 2.5-5.0 [facility] Comment on above: Performed By: #### L [id number] ####[facility] ([facility])[address] [place] [address] POCT GLUCOSE METER UNSOLICIT ED RESULTSon 12-24-2023 Glucose [Mass/Vol] 192 mg/dL High 70-105 [facility] Comment on above: Order Comment: Waive d Testing in the ED is performed under the ED CLIA certificate #[id number]. Result Comment: [email or web address] [email or web address] Performed By: #### L [id number] ####[facility] ([facility])[address] [place] [address] Glucose [Mass/Vol] 135 mg/dL High 70-105 [facility] Comment on above: Order Comment: Waive d Testing in the ED is performed under the ED CLIA certificate #[id number]. Result Comment: epoo [email or web address] Performed By: #### L [id number] ####[facility] ([facility])[address] [place] [address] 30on 12-23-2023 30 Normal [facility] 30 Normal [facility] 30 [facility] BASIC METABOLIC PANELon 12-08 Anion gap [Moles/Vol] 14 mmol/L Normal 7-20 [facility] Comment on above: Performed By: #### L [id number] ####[facility] ([facility])[address] [place] [address] Calcium [Mass/Vol] 8.3 mg/dL Low 8.6-10.3 [facility] Comment on above: Performed By: #### L [id number] ####[facility] ([facility])[address] [place] [address] Chloride [Moles/Vol] 95 mmol/L Low 98-107 [facility] Comment on above: Performed By: #### L [id number] ####[facility] ([facility])[address] [place] [address] CO2 [Moles/Vol] 23 mmol/L Normal 21-31 [facility] Comment on above: Performed By: #### L [id number] ####[facility] ([facility])[address] [place] [address] Creatinine [Mass/Vol] 0.45 mg/dL Low 0.70-1.30 [facility] Comment on above: Performed By: #### L [id number] ####[facility] ([facility])[address] [place] [address] GLOMERULAR FILTRATION RATE ML/MIN/1.73 SQ M.PREDICTED 108.4 mL/min/1.73m*2 Normal >60.0 [facility] Comment on above: Result Comment: [facility]???s estimated glomerular filtration rate (eGFR) [...] of individuals. Performed By: #### L [id number] ####[facility] ([facility])[address] [place] [address] Glucose [Mass/Vol] 104 mg/dL High 70-100 [facility] Comment on above: Performed By: #### L [id number] ####[facility] ([facility])[address] [place] [address] Potassium [Moles/Vol] 3.7 mmol/L Normal 3.5-5.1 [facility] Comment on above: Performed By: #### L [id number] ####[facility] ([facility])[address] [place] [address] Sodium [Moles/Vol] 128 mmol/L Low 136-145 [facility] Comment on above: Performed By: #### L [id number] ####[facility] ([facility])[address] [place] [address] Urea nitrogen [Mass/Vol] 11 mg/dL Normal 7-25 [facility] Comment on above: Performed By: #### L [id number] ####[facility] ([facility])[address] [place] [address] UREA NITROGEN/CREATININE (MASS RATIO) IN SER/PLAS 24.4 Normal [facility] Comment on above: Performed By: #### L [id number] ####[facility] ([facility])[address] [place] [address] CBCon 03-15-2024 Erythrocyte distribution width (RBC) [Ratio] 18.4 % High 11.5-15.0 [facility] Comment on above: Performed By: #### L [id number] ####[facility] ([facility])[address] [place] [address] ERYTHROCYTE MEAN CORPUSCULAR HEMOGLOBIN CONCENTRATION (G/DL) BY AUTOMATED 30.1 g/dL Low 32.0-35.0 [facility] Comment on above: Performed By: #### L [id number] ####[facility] ([facility])[address] [place] [address] Hematocrit (Bld) [Volume fraction] 26.6 % Low 39.0-55.0 [facility] Comment on above: Performed By: #### L [id number] ####[facility] ([facility])[address] [place] [address] Hemoglobin (Bld) [Mass/Vol] 8.0 g/dL Low 13.0-17.0 [facility] Comment on above: Performed By: #### L [id number] ####[facility] ([facility])[address] [place] [address] MCH (RBC) [Entitic mass] 26.8 pg Low 27.0-33.0 [facility] Comment on above: Performed By: #### L [id number] ####[facility] ([facility])[address] [place] [address] MCV (RBC) [Entitic vol] 89.0 fL Normal 82.0-98.0 [facility] Comment on above: Performed By: #### L [id number] ####[facility] ([facility])[address] [place] [address] PLATELETS (10*3/UL) IN BLOOD AUTOMATED COUNT 196 10*3/uL Normal 150-400 [facility] Comment on above: Performed By: #### L [id number] ####[facility] ([facility])[address] [place] [address] RBC (Bld) [#/Vol] 2.99 10*6/uL Low 4.20-5.[address] [facility] Comment on above: Performed By: #### L [id number] ####[facility] ([facility])[address] [place] [address] WBC (Bld) [#/Vol] 13.04 10*3/uL High 4.00-10.60 [facility] Comment on above: Performed By: #### L [id number] ####[facility] ([facility])[address] [place] [address] DSon 12-23-2023 DS Normal [facility] MAGNESIUMon 12-23-2023 Magnesium [Mass/Vol] 1.9 mg/dL Normal 1.9-2.7 [facility] Comment on above: Performed By: #### L [id number] ####[facility] ([facility])[address] [place] [address] PHOSPHORUSon 12-23-2023 Magnesium [Mass/Vol] 3.0 mg/dL Normal 2.5-5.0 [facility] Comment on above: Performed By: #### L [id number] ####[facility] ([facility])[address] [place] [address] POCT GLUCOSE METER UNSOLICIT ED RESULTSon 12-23-2023 Glucose [Mass/Vol] 156 mg/dL High 70-105 [facility] Comment on above: Order Comment: Waive d Testing in the ED is performed under the ED CLIA certificate #[id number]. Result Comment: [email or web address] Performed By: #### L [id number] ####[facility] ([facility])[address] [place] [address] Glucose [Mass/Vol] 99 mg/dL Normal 70-105 [facility] Comment on above: Order Comment: Waive d Testing in the ED is performed under the ED CLIA certificate #[id number]. Result Comment: [email or web address] [email or web address] Performed By: #### L [id number] ####[facility] ([facility])[address] [place] [address] Glucose [Mass/Vol] 137 mg/dL High 70-105 [facility] Comment on above: Order Comment: Waive d Testing in the ED is performed under the ED CLIA certificate #[id number]. Result Comment: [email or web address] [email or web address] Performed By: #### L [id number] ####[facility] ([facility])[address] [place] [address] Glucose [Mass/Vol] 145 mg/dL High 70-105 [facility] Comment on above: Order Comment: Waive d Testing in the ED is performed under the ED CLIA certificate #[id number]. Result Comment: [email or web address] [email or web address] Performed By: #### L [id number] ####[facility] ([facility])[address] [place] [address] 30on 12-22-2023 30 Normal [facility] BASIC METABOLIC PANELon 12-08 Anion gap [Moles/Vol] 7 mmol/L Normal 7-20 [facility] Comment on above: Performed By: #### L [id number] ####[facility] ([facility])[address] [place] [address] Calcium [Mass/Vol] 8.4 mg/dL Low 8.6-10.3 [facility] Comment on above: Performed By: #### L [id number] ####[facility] ([facility])[address] [place] [address] Chloride [Moles/Vol] 102 mmol/L Normal 98-107 [facility] Comment on above: Performed By: #### L [id number] ####[facility] ([facility])[address] [place] [address] CO2 [Moles/Vol] 27 mmol/L Normal 21-31 [facility] Comment on above: Performed By: #### L [id number] ####[facility] ([facility])[address] [place] [address] Creatinine [Mass/Vol] 0.39 mg/dL Low 0.70-1.30 [facility] Comment on above: Performed By: #### L [id number] ####[facility] ([facility])[address] [place] [address] GLOMERULAR FILTRATION RATE ML/MIN/1.73 SQ M.PREDICTED 113.2 mL/min/1.73m*2 Normal >60.0 [facility] Comment on above: Result Comment: [facility]???s estimated glomerular filtration rate (eGFR) [...] of individuals. Performed By: #### L [id number] ####[facility] ([facility])[address] [place] [address] Glucose [Mass/Vol] 121 mg/dL High 70-100 [facility] Comment on above: Performed By: #### L [id number] ####[facility] ([facility])[address] [place] [address] Potassium [Moles/Vol] 4.0 mmol/L Normal 3.5-5.1 [facility] Comment on above: Performed By: #### L [id number] ####[facility] ([facility])[address] [place] [address] Sodium [Moles/Vol] 132 mmol/L Low 136-145 [facility] Comment on above: Performed By: #### L [id number] ####[facility] ([facility])[address] [place] [address] Urea nitrogen [Mass/Vol] 11 mg/dL Normal 7-25 [facility] Comment on above: Performed By: #### L [id number] ####[facility] ([facility])[address] [place] [address] UREA NITROGEN/CREATININE (MASS RATIO) IN SER/PLAS 28.2 Normal [facility] Comment on above: Performed By: #### L [id number] ####[facility] ([facility])[address] [place] [address] CBCon 12-22-2023 Erythrocyte distribution width (RBC) [Ratio] 18.4 % High 11.5-15.0 [facility] Comment on above: Performed By: #### L [id number] ####[facility] ([facility])[address] [place] [address] ERYTHROCYTE MEAN CORPUSCULAR HEMOGLOBIN CONCENTRATION (G/DL) BY AUTOMATED 31.0 g/dL Low 32.0-35.0 [facility] Comment on above: Performed By: #### L [id number] ####[facility] ([facility])[address] [place] [address] Hematocrit (Bld) [Volume fraction] 24.2 % Low 39.0-55.0 [facility] Comment on above: Performed By: #### L [id number] ####[facility] ([facility])[address] [place] [address] Hemoglobin (Bld) [Mass/Vol] 7.5 g/dL Low 13.0-17.0 [facility] Comment on above: Performed By: #### L [id number] ####[facility] ([facility])[address] [place] [address] MCH (RBC) [Entitic mass] 27.6 pg Normal 27.0-33.0 [facility] Comment on above: Performed By: #### L [id number] ####[facility] ([facility])[address] [place] [address] MCV (RBC) [Entitic vol] 89.0 fL Normal 82.0-98.0 [facility] Comment on above: Performed By: #### L [id number] ####[facility] ([facility])[address] [place] [address] PLATELETS (10*3/UL) IN BLOOD AUTOMATED COUNT 154 10*3/uL Normal 150-400 [facility] Comment on above: Performed By: #### L [id number] ####[facility] ([facility])[address] [place] [address] RBC (Bld) [#/Vol] 2.72 10*6/uL Low 4.20-5.[address] [facility] Comment on above: Performed By: #### L [id number] ####[facility] ([facility])[address] [place] [address] WBC (Bld) [#/Vol] 7.36 10*3/uL Normal 4.00-10.[address] [facility] Comment on above: Performed By: #### L [id number] ####[facility] ([facility])[address] [place] [address] CONSULTon 12-22-2023 CONSULT Normal [facility] HEMOGLOBIN A1Con 12-22-2023 Glucose [Mass/Vol] 105 mg/dL Normal [facility] Comment on above: Performed By: #### L [id number] ####[facility] ([facility])[address] [place] [address] HbA1c (Bld) [Mass fraction] 5.3 % Normal 4.0-6.0 [facility] Comment on above: Performed By: #### L [id number] ####[facility] ([facility])[address] [place] [address] LACTIC ACID WITH 4 HOUR REFL EXon 12-22-2023 LACTATE (MMOL/L) IN SER/PLAS 0.8 mmol/L Normal 0.5-2.2 [facility] Comment on above: Performed By: #### L [id number] ####[facility] ([facility])[address] [place] [address] MAGNESIUMon 12-22-2023 Magnesium [Mass/Vol] 1.7 mg/dL Low 1.9-2.7 [facility] Comment on above: Performed By: #### L [id number] ####[facility] ([facility])[address] [place] [address] PHOSPHORUSon 12-22-2023 Magnesium [Mass/Vol] 3.7 mg/dL Normal 2.5-5.0 [facility] Comment on above: Performed By: #### L [id number] ####[facility] ([facility])[address] [place] [address] POCT GLUCOSE METER UNSOLICIT ED RESULTSon 12-22-2023 Glucose [Mass/Vol] 121 mg/dL High 70-105 [facility] Comment on above: Order Comment: Waive d Testing in the ED is performed under the ED CLIA certificate #[id number]. Result Comment: [email or web address] Performed By: #### L [id number] ####[facility] ([facility])[address] [place] [address] Glucose [Mass/Vol] 170 mg/dL High 70-105 [facility] Comment on above: Order Comment: Waive d Testing in the ED is performed under the ED CLIA certificate #[id number]. Result Comment: [email or web address] Performed By: #### L [id number] ####[facility] ([facility])[address], [place] [id number] Glucose [Mass/Vol] 163 mg/dL High 70-105 [facility] Comment on above: Order Comment: Waive d Testing in the ED is performed under the ED CLIA certificate #[id number]. Result Comment: [email or web address] Performed By: #### L [id number] ####[facility] ([facility])[address] [place] [address] Glucose [Mass/Vol] 136 mg/dL High 70-105 [facility] Comment on above: Order Comment: Waive d Testing in the ED is performed under the ED CLIA certificate #[id number]. Result Comment: [email or web address] Performed By: #### L [id number] ####[facility] ([facility])[address] [place] [address] [facility] 12-21-2023 [facility] Normal [facility] APTTon 12-21-2023 ACTIVATED PARTIAL THROMBOPLASTIN TIME IN PPP BY COAGULATION ASSAY 37.6 Seconds High 25.0-35.0 [facility] Comment on above: Result Comment: Clin ical significance of the APTT is questionable in the presence of heparin. Performed By: #### L [id number] ####[facility] ([facility])[address] [place] [address] BASIC METABOLIC PANELon 12-08 Anion gap [Moles/Vol] 6 mmol/L Low 7-20 [facility] Comment on above: Performed By: #### L [id number] ####[facility] ([facility])[address] [place] [address] Calcium [Mass/Vol] 8.1 mg/dL Low 8.6-10.3 [facility] Comment on above: Performed By: #### L [id number] ####[facility] ([facility])[address] [place] [address] Chloride [Moles/Vol] 102 mmol/L Normal 98-107 [facility] Comment on above: Performed By: #### L [id number] ####[facility] ([facility])[address] [place] [address] CO2 [Moles/Vol] 30 mmol/L Normal 21-31 [facility] Comment on above: Performed By: #### L [id number] ####[facility] ([facility])[address] [place] [address] Creatinine [Mass/Vol] 0.40 mg/dL Low 0.70-1.30 [facility] Comment on above: Performed By: #### L [id number] ####[facility] ([facility])[address] [place] [address] GLOMERULAR FILTRATION RATE ML/MIN/1.73 SQ M.PREDICTED 112.4 mL/min/1.73m*2 Normal >60.0 [facility] Comment on above: Result Comment: The [facility] [...] of individuals. Performed By: #### L [id number] ####[facility] ([facility])[address] [place] [address] Glucose [Mass/Vol] 187 mg/dL High 70-100 [facility] Comment on above: Performed By: #### L [id number] ####[facility] ([facility])[address] [place] [address] Potassium [Moles/Vol] 3.9 mmol/L Normal 3.5-5.1 [facility] Comment on above: Performed By: #### L [id number] ####[facility] ([facility])[address] [place] [address] Sodium [Moles/Vol] 134 mmol/L Low 136-145 [facility] Comment on above: Performed By: #### L [id number] ####[facility] ([facility])[address] [place] [address] Urea nitrogen [Mass/Vol] 11 mg/dL Normal 7-25 [facility] Comment on above: Performed By: #### L [id number] ####[facility] ([facility])[address] [place] [address] UREA NITROGEN/CREATININE (MASS RATIO) IN SER/PLAS 27.5 Normal [facility] Comment on above: Performed By: #### L [id number] ####[facility] ([facility])[address] [place] [address] CBCon 12-21-2023 Erythrocyte distribution width (RBC) [Ratio] 18.2 % High 11.5-15.0 [facility] Comment on above: Performed By: #### L [id number] ####[facility] ([facility])[address] [place] [address] ERYTHROCYTE MEAN CORPUSCULAR HEMOGLOBIN CONCENTRATION (G/DL) BY AUTOMATED 30.2 g/dL Low 32.0-35.0 [facility] Comment on above: Performed By: #### L [id number] ####[facility] ([facility])[address] [place] [address] Hematocrit (Bld) [Volume fraction] 29.1 % Low 39.0-55.0 [facility] Comment on above: Performed By: #### L [id number] ####[facility] ([facility])[address] [place] [address] Hemoglobin (Bld) [Mass/Vol] 8.8 g/dL Low 13.0-17.0 [facility] Comment on above: Performed By: #### L [id number] ####[facility] ([facility])[address] [place] [address] MCH (RBC) [Entitic mass] 27.2 pg Normal 27.0-33.0 [facility] Comment on above: Performed By: #### L [id number] ####[facility] ([facility])[address] [place] [address] MCV (RBC) [Entitic vol] 90.1 fL Normal 82.0-98.0 [facility] Comment on above: Performed By: #### L [id number] ####[facility] ([facility])[address] [place] [address] PLATELETS (10*3/UL) IN BLOOD AUTOMATED COUNT 188 10*3/uL Normal 150-400 [facility] Comment on above: Performed By: #### L [id number] ####[facility] ([facility])[address] [place] [address] RBC (Bld) [#/Vol] 3.23 10*6/uL Low 4.20-5.[address] [facility] Comment on above: Performed By: #### L [id number] ####[facility] ([facility])[address] [facility] [address] WBC (Bld) [#/Vol] 6.24 10*3/uL Normal 4.00-10.[address] 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]Encounter for pre-operative examination [Z01.818] Result Comment: Surg ical Pathology Case: [id number] Provider: Wen Zapata MD Collected: 12/21/2023 1640Ordering Location: [facility] Main Operating Room Received: 12/22/2023 1002Pathologist: MONICA Marreropecimen: Leg, LEFT KNEE/LEG Performed By: #### L [id number] ####[facility] ([facility])[address] [facility] [address] LAB AP CLINICAL INFORMATION Normal [facility] Comment on above: Order Comment: Pre-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 Leg. 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 Performed By: #### L [id number] ####[facility] ([facility])[address] [place] [address] HPon 12-21-2023 HP Normal [facility] Labon 12-21-2023 Lab Normal [facility] MRSA/MSSA DNA NASALon 2023 MRSA DNA Negative Normal Negative [facility] Comment on above: Order Comment: Testi ng [...] preclude nasal colonization. Performed By: #### L [id number] ####[facility] ([facility])[address] [place] [address] MSSA DNA Negative Normal Negative [facility] Comment on above: Order Comment: Testi ng [...] preclude nasal colonization. Performed By: #### L [id number] ####[facility] ([facility])[address] [place] [address] NURSNOTEon 12-21-2023 NURSNOTE Patient arrived to [facility]. Stable with No complaints. Call light in reach. Dinner ordered. Normal [facility] OPNOTEon 12-21-2023 OPNOTE Normal [facility] POCT GLUCOSE METER UNSOLICIT ED RESULTSon 12-21-2023 Glucose [Mass/Vol] 99 mg/dL Normal 70-105 [facility] Comment on above: Order Comment: Waive d Testing in the ED is performed under the ED CLIA certificate #[id number]. Result Comment: manny oun3 Performed By: #### L [id number] ####[facility] ([facility])[address] [place] [address] Glucose [Mass/Vol] 99 mg/dL Normal 70-105 [facility] Comment on above: Order Comment: Waive d Testing in the ED is performed under the ED CLIA certificate #[id number]. Result Comment: jstr [email or web address] Performed By: #### L [id number] ####[facility] ([facility])[address] [place] [address] Glucose [Mass/Vol] 164 mg/dL High 70-105 [facility] Comment on above: Order Comment: Waive d Testing in the ED is performed under the ED CLIA certificate #[id number]. Result Comment: acle ment Performed By: #### L [id number] ####[facility] ([facility])[address] [place] [address] PROTIME-INRon 12-21-2023 INR IN PPP BY COAGULATION ASSAY 1.20 High 0.90-1.10 [facility] Comment on above: Result Comment: ACCC P [...] CHEST 1995;108:231S-246S. Performed By: #### L [id number] ####[facility] ([facility])[address] [place] [address] PROTHROMBIN TIME (PT) IN PPP BY COAGULATION ASSAY 15.2 Seconds High 12.3-14.8 [facility] Comment on above: Performed By: #### L [id number] ####[facility] ([facility])[address] [place] [address] TYPE AND SCREENon 12-21-2023 AB SCREEN Negative Normal [facility] Comment on above: Performed By: #### L [id number] ####[facility], ABO group Nom (Bld) O Normal [facility] Comment on above: Performed By: #### L [id number] ####[facility], RH TYPE IN BLOOD Positive Normal [facility] Comment on above: Performed By: #### L [id number] ####[facility], Orders Onlyon 12-19-2023 Orders Only Normal [facility] Prep for Procedureon 024 Prep for Procedure Normal [facility] Follow-Upon 12-16-2023 Follow-Up [facility] 36on 12-07-2023 36 Critical lab - Hgb - 6.8, Hematocrit - 22.8. ZOEY Mendes notified and contacted patient. [facility] Documentationon 12-07-2023 Documentation Normal [facility] Orders Onlyon 12-07-2023 Orders Only [facility] Orders Onlyon 12-05-2023 Orders Only [facility] Telemedicineon 12-01-2023 Telemedicine [facility] Follow-Upon 11-30-2023 Follow-Up [facility] 36on 11-28-2023 36 Confirmed appointmen t change with spouse. She voiced understanding. [facility] 36 Patient is currently scheduled in person on 12/01/23. Please respond. [facility] 36on 11-24-2023 36 Patient is currently at [facility] in [facility]. Dr. Gian Horta is following the patient in Rehab. Patients Ijeoma is requesting a virtual appointment due to patient recovery post leg amputation. Please Advise. [facility] Telephoneon 11-24-2023 Telephone [facility] BASIC METABOLIC PANELon 11-10 Anion gap [Moles/Vol] 12 mmol/L Normal 7-20 [facility] Comment on above: Performed By: #### L [id number] ####[facility] ([facility])[address] [place] [address] Calcium [Mass/Vol] 7.7 mg/dL Low 8.6-10.3 [facility] Comment on above: Performed By: #### L [id number] ####[facility] ([facility])[address] [place] [address] Chloride [Moles/Vol] 98 mmol/L Normal 98-107 [facility] Comment on above: Performed By: #### L [id number] ####[facility] ([facility])[address] [place] [address] CO2 [Moles/Vol] 26 mmol/L Normal 21- [facility] Comment on above: Performed By: #### L [id number] ####[facility] ([facility])[address] [place] [address] Creatinine [Mass/Vol] 0.37 mg/dL Low 0.70-1.30 [facility] Comment on above: Performed By: #### L [id number] ####[facility] ([facility])[address] [place] [address] GLOMERULAR FILTRATION RATE ML/MIN/1.73 SQ M.PREDICTED 115.8 mL/min/1.73m*2 Normal >60.0 [facility] Comment on above: Result Comment: [facility]???s estimated glomerular filtration rate (eGFR) [...] of individuals. Performed By: #### L [id number] ####[facility] ([facility])[address] [place] [address] Glucose [Mass/Vol] 103 mg/dL High 70-100 [facility] Comment on above: Performed By: #### L [id number] ####[facility] ([facility])[address] [place] [address] Potassium [Moles/Vol] 3.9 mmol/L Normal 3.5-5.1 [facility] Comment on above: Performed By: #### L [id number] ####[facility] ([facility])[address] [place] [address] Sodium [Moles/Vol] 132 mmol/L Low 136-145 [facility] Comment on above: Performed By: #### L [id number] ####[facility] ([facility])[address] [place] [place] [address] Urea nitrogen [Mass/Vol] 6 mg/dL Low 7-25 [facility] Comment on above: Performed By: #### L [id number] ####[facility] ([facility])[address] [place] [address] UREA NITROGEN/CREATININE (MASS RATIO) IN SER/PLAS 16.2 Normal [facility] Comment on above: Performed By: #### L [id number] ####[facility] ([facility])[address] [place] [address] CBC WITH AUTO DIFFERENTIALon 11-21-2023 Basophils (Bld) [#/Vol] 0.01 10*3/uL Normal 0.00-0.20 [facility] Comment on above: Performed By: #### L [id number] ####[facility] ([facility])[address] [place] [address] Basophils/100 WBC (Bld) 0.2 % Normal 0.0-1.0 [facility] Comment on above: Performed By: #### L [id number] ####[facility] ([facility])[address] [place] [address] Eosinophils (Bld) [#/Vol] 0.01 10*3/uL Normal 0.00-0.50 [facility] Comment on above: Performed By: #### L [id number] ####[facility] ([facility])[address] [place] [address] Eosinophils/100 WBC (Bld) 0.2 % Normal 0.0-6.0 [facility] Comment on above: Performed By: #### L [id number] ####[facility] ([facility])[address] [place] [address] Erythrocyte distribution width (RBC) [Ratio] 17.0 % High 11.5-15.0 [facility] Comment on above: Performed By: #### L [id number] ####[facility] ([facility])[address] [place] [address] ERYTHROCYTE MEAN CORPUSCULAR HEMOGLOBIN CONCENTRATION (G/DL) BY AUTOMATED 31.6 g/dL Low 32.0-35.0 [facility] Comment on above: Performed By: #### L [id number] ####[facility] ([facility])[address] [place] [address] Hematocrit (Bld) [Volume fraction] 25.6 % Low 39.0-55.0 [facility] Comment on above: Performed By: #### L [id number] ####[facility] ([facility])[address] [place] [address] Hemoglobin (Bld) [Mass/Vol] 8.1 g/dL Low 13.0-17.0 [facility] Comment on above: Performed By: #### L [id number] ####[facility] ([facility])[address] [place] [address] Immature granulocytes (Bld) [#/Vol] 0.03 10*3/uL Normal 0.00-0.20 [facility] Comment on above: Performed By: #### L [id number] ####[facility] ([facility])[address] [place] [address] Immature granulocytes/100 WBC (Bld) 0.5 % Normal 0.0-1.0 [facility] Comment on above: Performed By: #### L [id number] ####[facility] ([facility])[address] [place] [address] Lymphocytes (Bld) [#/Vol] 0.34 10*3/uL Low 1.20-4.00 [facility] Comment on above: Performed By: #### L [id number] ####[facility] ([facility])[address] [place] [address] Lymphocytes/100 WBC (Bld) 5.9 % Low 20.0-45.0 [facility] Comment on above: Performed By: #### L [id number] ####[facility] ([facility])[address] [place] [address] MCH (RBC) [Entitic mass] 26.7 pg Low 27.0-33.0 [facility] Comment on above: Performed By: #### L [id number] ####[facility] ([facility])[address] [place] [address] MCV (RBC) [Entitic vol] 84.5 fL Normal 82.0-98.0 [facility] Comment on above: Performed By: #### L [id number] ####[facility] ([facility])[address] [place] [address] Monocytes (Bld) [#/Vol] 0.74 10*3/uL Normal 0.10-1.00 [facility] Comment on above: Performed By: #### L [id number] ####[facility] ([facility])[address] [place] [address] Monocytes/100 WBC (Bld) 12.8 % High 5.0-12.0 [facility] Comment on above: Performed By: #### L [id number] ####[facility] ([facility])[address] [address] Neutrophils (Bld) [#/Vol] 4.66 10*3/uL Normal 1.60-7.60 [facility] Comment on above: Performed By: #### L [id number] ####[facility] ([facility])[address] [address] Neutrophils/100 WBC (Bld) 80.4 % High 40.0-72.0 [facility] Comment on above: Performed By: #### L [id number] ####[facility] ([facility])[address] [address] NRBC (PER 100 WBCS) BY AUTOMATED COUNT 0.0 % Normal 0 [facility] Comment on above: Performed By: #### L [id number] ####[facility] ([facility])[address] [address] PLATELETS (10*3/UL) IN BLOOD AUTOMATED COUNT 172 10*3/uL Normal 150-400 [facility] Comment on above: Performed By: #### L [id number] ####[facility] ([facility])[address] [address] RBC (Bld) [#/Vol] 3.03 10*6/uL Low 4.20-5.[address] [facility] Comment on above: Performed By: #### L [id number] ####[facility] ([facility])[address] [place] [address] WBC (Bld) [#/Vol] 5.79 10*3/uL Normal 4.00-10.[address] [facility] Comment on above: Performed By: #### L [id number] ####[facility] ([facility])[address] [place] [address] CONSULTon 11-21-2023 CONSULT Normal [facility] DSon 11-21-2023 DS Normal [facility] HEPATIC FUNCTION PANELon Albumin [Mass/Vol] 2.4 g/dL Low 3.5-5.7 [facility] Comment on above: Performed By: #### L [id number] ####[facility] ([facility])[address] [place] [address] ALP [Catalytic activity/Vol] 215 U/L High 34-104 [facility] Comment on above: Performed By: #### L [id number] ####[facility] ([facility])[address] [place] [address] ALT [Catalytic activity/Vol] 147 U/L High 7-52 [facility] Comment on above: Performed By: #### L [id number] ####[facility] ([facility])[address] [place] [address] AST [Catalytic activity/Vol] 110 U/L High 13-39 [facility] Comment on above: Performed By: #### L [id number] ####[facility] ([facility])[address] [place] [address] Bilirubin [Mass/Vol] 0.8 mg/dL Normal 0.3-1.0 [facility] Comment on above: Performed By: #### L [id number] ####[facility] ([facility])[address] [place] [address] Magnesium [Mass/Vol] 0.6 mg/dL High 0-0.2 [facility] Comment on above: Performed By: #### L [id number] ####[facility] ([facility])[address] [place] [address] Protein [Mass/Vol] 6.3 g/dL Normal 6.0-8.3 [facility] Comment on above: Performed By: #### L [id number] ####[facility] ([facility])[address] [place] [address] POCT GLUCOSE METER UNSOLICIT ED RESULTSon 11-21-2023 Glucose [Mass/Vol] 192 mg/dL High 70-105 [facility] Comment on above: Order Comment: Waive d Testing in the ED is performed under the ED CLIA certificate #[id number]. Result Comment: sbel air Performed By: #### L [id number] ####[facility] ([facility])[address] [place] [address] Glucose [Mass/Vol] 155 mg/dL High 70-105 [facility] Comment on above: Order Comment: Waive d Testing in the ED is performed under the ED CLIA certificate #[id number]. Result Comment: wwar rad Performed By: #### L [id number] ####[facility] ([facility])[address] [place] [address] Glucose [Mass/Vol] 108 mg/dL High 70-105 [facility] Comment on above: Order Comment: Waive d Testing in the ED is performed under the ED CLIA certificate #[id number]. Result Comment: tstr [email or web address] Performed By: #### L [id number] ####[facility] ([facility])[address] [place] [address] Glucose [Mass/Vol] 115 mg/dL High 70-105 [facility] Comment on above: Order Comment: Waive d Testing in the ED is performed under the ED CLIA certificate #[id number]. Result Comment: mcas tor Performed By: #### L [id number] ####[facility] ([facility])[address] [place] [address] PROTIME-INRon 11-21-2023 INR IN PPP BY COAGULATION ASSAY 1.40 High 0.90-1.10 [facility] Comment on above: Result Comment: ACCC P [...] CHEST 1995;108:231S-246S. Performed By: #### L [id number] ####[facility] ([facility])[address] [place] [address] PROTHROMBIN TIME (PT) IN PPP BY COAGULATION ASSAY 17.2 Seconds High 12.3-14.8 [facility] Comment on above: Performed By: #### L [id number] ####[facility] ([facility])[address] [place] [address] BASIC METABOLIC PANELon 11-10 Anion gap [Moles/Vol] 11 mmol/L Normal 7-20 [facility] Comment on above: Performed By: #### L [id number] ####[facility] ([facility])[address] [place] [address] Calcium [Mass/Vol] 7.8 mg/dL Low 8.6-10.3 [facility] Comment on above: Performed By: #### L [id number] ####[facility] ([facility])[address] [place] [address] Chloride [Moles/Vol] 101 mmol/L Normal 98-107 [facility] Comment on above: Performed By: #### L [id number] ####[facility] ([facility])[address] [place] [address] CO2 [Moles/Vol] 24 mmol/L Normal 21-31 [facility] Comment on above: Performed By: #### L [id number] ####[facility] ([facility])[address] [place] [address] Creatinine [Mass/Vol] 0.43 mg/dL Low 0.70-1.30 [facility] Comment on above: Performed By: #### L [id number] ####[facility] ([facility])[address] [place] [address] GLOMERULAR FILTRATION RATE ML/MIN/1.73 SQ M.PREDICTED 110.6 mL/min/1.73m*2 Normal >60.0 [facility] Comment on above: Result Comment: [facility]???s estimated glomerular filtration rate (eGFR) [...] of individuals. Performed By: #### L [id number] ####[facility] ([facility])[address] [address] Glucose [Mass/Vol] 104 mg/dL High 70-100 [facility] Comment on above: Performed By: #### L [id number] ####[facility] ([facility])[address] [place] [address] Potassium [Moles/Vol] 3.7 mmol/L Normal 3.5-5.1 [facility] Comment on above: Performed By: #### L [id number] ####[facility] ([facility])[address] [place] [address] Sodium [Moles/Vol] 132 mmol/L Low 136-145 [facility] Comment on above: Performed By: #### L [id number] ####[facility] ([facility])[address] [place] [address] Urea nitrogen [Mass/Vol] 9 mg/dL Normal 7-25 [facility] Comment on above: Performed By: #### L [id number] ####[facility] ([facility])[address] [place] [address] UREA NITROGEN/CREATININE (MASS RATIO) IN SER/PLAS 20.9 Normal [facility] Comment on above: Performed By: #### L [id number] ####[facility] ([facility])[address] [place] [address] CBC WITH AUTO DIFFERENTIALon 11-20-2023 Basophils (Bld) [#/Vol] 0.02 10*3/uL Normal 0.00-0.20 [facility] Comment on above: Performed By: #### L [id number] ####[facility] ([facility])[address] [place] [address] Basophils/100 WBC (Bld) 0.5 % Normal 0.0-1.0 [facility] Comment on above: Performed By: #### L [id number] ####[facility] ([facility])[address] [place] [address] Eosinophils (Bld) [#/Vol] 0.02 10*3/uL Normal 0.00-0.50 [facility] Comment on above: Performed By: #### L [id number] ####[facility] ([facility])[address] [place] [address] Eosinophils/100 WBC (Bld) 0.5 % Normal 0.0-6.0 [facility] Comment on above: Performed By: #### L [id number] ####[facility] ([facility])[address] [place] [address] Erythrocyte distribution width (RBC) [Ratio] 17.1 % High 11.5-15.0 [facility] Comment on above: Performed By: #### L [id number] ####[facility] ([facility])[address] [place] [address] ERYTHROCYTE MEAN CORPUSCULAR HEMOGLOBIN CONCENTRATION (G/DL) BY AUTOMATED 31.6 g/dL Low 32.0-35.0 [facility] Comment on above: Performed By: #### L [id number] ####[facility] ([facility])[address] [place] [address] Hematocrit (Bld) [Volume fraction] 22.8 % Low 39.0-55.0 [facility] Comment on above: Performed By: #### L [id number] ####[facility] ([facility])[address] [place] [address] Hemoglobin (Bld) [Mass/Vol] 7.2 g/dL Low 13.0-17.0 [facility] Comment on above: Performed By: #### L [id number] ####[facility] ([facility])[address] [place] [address] Immature granulocytes (Bld) [#/Vol] 0.05 10*3/uL Normal 0.00-0.20 [facility] Comment on above: Performed By: #### L [id number] ####[facility] ([facility])[address] [place] [address] Immature granulocytes/100 WBC (Bld) 1.2 % High 0.0-1.0 [facility] Comment on above: Performed By: #### L [id number] ####[facility] ([facility])[address] [place] [address] Lymphocytes (Bld) [#/Vol] 0.32 10*3/uL Low 1.20-4.00 [facility] Comment on above: Performed By: #### L [id number] ####[facility] ([facility])[address] [place] [address] Lymphocytes/100 WBC (Bld) 7.4 % Low 20.0-45.0 [facility] Comment on above: Performed By: #### L [id number] ####[facility] ([facility])[address] [place] [address] MCH (RBC) [Entitic mass] 26.6 pg Low 27.0-33.0 [facility] Comment on above: Performed By: #### L [id number] ####[facility] ([facility])[address] [place] [address] MCV (RBC) [Entitic vol] 84.1 fL Normal 82.0-98.0 [facility] Comment on above: Performed By: #### L [id number] ####[facility] ([facility])[address] [place] [address] Monocytes (Bld) [#/Vol] 0.39 10*3/uL Normal 0.10-1.00 [facility] Comment on above: Performed By: #### L [id number] ####[facility] ([facility])[address] [place] [address] Monocytes/100 WBC (Bld) 9.1 % Normal 5.0-12.0 [facility] Comment on above: Performed By: #### L [id number] ####[facility] ([facility])[address] [place] [address] Neutrophils (Bld) [#/Vol] 3.50 10*3/uL Normal 1.60-7.60 [facility] Comment on above: Performed By: #### L [id number] ####[facility] ([facility])[address] [place] [address] Neutrophils/100 WBC (Bld) 81.3 % High 40.0-72.0 [facility] Comment on above: Performed By: #### L [id number] ####[facility] ([facility])[address] [place] [address] NRBC (PER 100 WBCS) BY AUTOMATED COUNT 0.0 % Normal 0 [facility] Comment on above: Performed By: #### L [id number] ####[facility] ([facility])[address] [place] [address] PLATELETS (10*3/UL) IN BLOOD AUTOMATED COUNT 168 10*3/uL Normal 150-400 [facility] Comment on above: Performed By: #### L [id number] ####[facility] ([facility])[address] [place] [address] RBC (Bld) [#/Vol] 2.71 10*6/uL Low 4.20-5.[address] [facility] Comment on above: Performed By: #### L [id number] ####[facility] ([facility])[address] [place] [address] WBC (Bld) [#/Vol] 4.30 10*3/uL Normal 4.00-10.[address] [facility] Comment on above: Performed By: #### L [id number] ####[facility] ([facility])[address] [place] [address] HEPATIC FUNCTION PANELon Albumin [Mass/Vol] 2.4 g/dL Low 3.5-5.7 [facility] Comment on above: Performed By: #### L [id number] ####[facility] ([facility])[address] [place] [address] ALP [Catalytic activity/Vol] 201 U/L High 34-104 [facility] Comment on above: Performed By: #### L [id number] ####[facility] ([facility])[address] [place] [address] ALT [Catalytic activity/Vol] 160 U/L High 7-52 [facility] Comment on above: Performed By: #### L [id number] ####[facility] ([facility])[address] [place] [address] AST [Catalytic activity/Vol] 107 U/L High 13-39 [facility] Comment on above: Performed By: #### L [id number] ####[facility] ([facility])[address] [place] [address] Bilirubin [Mass/Vol] 0.5 mg/dL Normal 0.3-1.0 [facility] Comment on above: Performed By: #### L [id number] ####[facility] ([facility])[address] [place] [address] Magnesium [Mass/Vol] 0.3 mg/dL High 0-0.2 [facility] Comment on above: Performed By: #### L [id number] ####[facility] ([facility])[address] [place] [address] Protein [Mass/Vol] 6.1 g/dL Normal 6.0-8.3 [facility] Comment on above: Performed By: #### L [id number] ####[facility] ([facility])[address] [place] [address] POCT GLUCOSE METER UNSOLICIT ED RESULTSon 11-20-2023 Glucose [Mass/Vol] 96 mg/dL Normal 70-105 [facility] Comment on above: Order Comment: Waive d Testing in the ED is performed under the ED CLIA certificate #[id number]. Result Comment: [email or web address] Performed By: #### L [id number] ####[facility] ([facility])[address] [place] [address] Glucose [Mass/Vol] 124 mg/dL High 70-105 [facility] Comment on above: Order Comment: Waive d Testing in the ED is performed under the ED CLIA certificate #[id number]. Result Comment: [email or web address] Performed By: #### L [id number] ####[facility] ([facility])[address] [place] [address] TRANSFUSION REACTION EVALUAT IONon 11-20-2023 ABO GROUP (TYPE) IN BLOOD O [facility] Comment on above: Order Comment: Obtai n one Redtop and one Lavender Top. Send with Blood Bag and Infusion set to Blood Bank Performed By: #### L [id number] ####[facility], ANTI C3 LD Negative [facility] Comment on above: Order Comment: Obtai n one Red[place] and one Lavender Top. Send with Blood Bag and Infusion set to Blood Bank Performed By: #### L [id number] ####[facility], ANTI IGG LD Negative Normal [facility] Comment on above: Order Comment: Obtai n one Red[place] and one Lavender Top. Send with Blood Bag and Infusion set to Blood Bank Performed By: #### L [id number] ####[facility], RH TYPE IN BLOOD Positive Normal [facility] Comment on above: Order Comment: Obtai n one Redtop and one Lavender Top. Send with Blood Bag and Infusion set to Blood Bank Performed By: #### L [id number] ####[facility], TRANSFUSION REACTION EVALUATION FEBRILE Normal [facility] Comment on above: Order Comment: Obtai n one Redtop and one Lavender Top. Send with Blood Bag and Infusion set to Blood Bank Performed By: #### L [id number] ####[facility], 30on 11-19-2023 30 Normal [facility] BASIC METABOLIC PANELon 11-10 Anion gap [Moles/Vol] 10 mmol/L Normal 7-20 [facility] Comment on above: Performed By: #### L [id number] ####[facility] ([facility])[address] [place] [address] Calcium [Mass/Vol] 7.8 mg/dL Low 8.6-10.3 [facility] Comment on above: Performed By: #### L [id number] ####[facility] ([facility])[address] [place] [address] Chloride [Moles/Vol] 100 mmol/L Normal 98-107 [facility] Comment on above: Performed By: #### L [id number] ####[facility] ([facility])[address] [place] [address] CO2 [Moles/Vol] 25 mmol/L Normal 21-31 [facility] Comment on above: Performed By: #### L [id number] ####[facility] ([facility])[address] [place] [address] Creatinine [Mass/Vol] 0.36 mg/dL Low 0.70-1.30 [facility] Comment on above: Performed By: #### L [id number] ####[facility] ([facility])[address] [place] [address] GLOMERULAR FILTRATION RATE ML/MIN/1.73 SQ M.PREDICTED 116.7 mL/min/1.73m*2 Normal >60.0 [facility] Comment on above: Result Comment: [facility]???s estimated glomerular filtration rate (eGFR) [...] of individuals. Performed By: #### L [id number] ####[facility] ([facility])[address] [place] [address] Glucose [Mass/Vol] 104 mg/dL High 70-100 [facility] Comment on above: Performed By: #### L [id number] ####[facility] ([facility])[address] [place] [address] Potassium [Moles/Vol] 3.7 mmol/L Normal 3.5-5.1 [facility] Comment on above: Performed By: #### L [id number] ####[facility] ([facility])[address] [place] [address] Sodium [Moles/Vol] 131 mmol/L Low 136-145 [facility] Comment on above: Performed By: #### L [id number] ####[facility] ([facility])[address] [place] [address] Urea nitrogen [Mass/Vol] 8 mg/dL Normal 7-25 [facility] Comment on above: Performed By: #### L [id number] ####[facility] ([facility])[address] [place] [address] UREA NITROGEN/CREATININE (MASS RATIO) IN SER/PLAS 22.2 Normal [facility] Comment on above: Performed By: #### L [id number] ####[facility] ([facility])[address] [place] [address] CBC WITH AUTO DIFFERENTIALon 11-19-2023 Basophils (Bld) [#/Vol] 0.03 10*3/uL Normal 0.00-0.20 [facility] Comment on above: Performed By: #### L [id number] ####[facility] ([facility])[address] [place] [address] Basophils/100 WBC (Bld) 0.6 % Normal 0.0-1.0 [facility] Comment on above: Performed By: #### L [id number] ####[facility] ([facility])[address] [place] [address] Eosinophils (Bld) [#/Vol] 0.01 10*3/uL Normal 0.00-0.50 [facility] Comment on above: Performed By: #### L [id number] ####[facility] ([facility])[address] [place] [address] Eosinophils/100 WBC (Bld) 0.2 % Normal 0.0-6.0 [facility] Comment on above: Performed By: #### L [id number] ####[facility] ([facility])[address] [place] [address] Erythrocyte distribution width (RBC) [Ratio] 16.9 % High 11.5-15.0 [facility] Comment on above: Performed By: #### L [id number] ####[facility] ([facility])[address] [place] [address] ERYTHROCYTE MEAN CORPUSCULAR HEMOGLOBIN CONCENTRATION (G/DL) BY AUTOMATED 31.6 g/dL Low 32.0-35.0 [facility] Comment on above: Performed By: #### L [id number] ####[facility] ([facility])[address] [place] [address] Hematocrit (Bld) [Volume fraction] 25.6 % Low 39.0-55.0 [facility] Comment on above: Performed By: #### L [id number] ####[facility] ([facility])[address] [place] [address] Hemoglobin (Bld) [Mass/Vol] 8.1 g/dL Low 13.0-17.0 [facility] Comment on above: Performed By: #### L [id number] ####[facility] ([facility])[address] [place] [address] Immature granulocytes (Bld) [#/Vol] 0.04 10*3/uL Normal 0.00-0.20 [facility] Comment on above: Performed By: #### L [id number] ####[facility] ([facility])[address] [place] [address] Immature granulocytes/100 WBC (Bld) 0.8 % Normal 0.0-1.0 [facility] Comment on above: Performed By: #### L [id number] ####[facility] ([facility])[address] [place] [address] Lymphocytes (Bld) [#/Vol] 0.37 10*3/uL Low 1.20-4.00 [facility] Comment on above: Performed By: #### L [id number] ####[facility] ([facility])[address] [place] [address] Lymphocytes/100 WBC (Bld) 7.2 % Low 20.0-45.0 [facility] Comment on above: Performed By: #### L [id number] ####[facility] ([facility])[address] [place] [address] MCH (RBC) [Entitic mass] 26.1 pg Low 27.0-33.0 [facility] Comment on above: Performed By: #### L [id number] ####[facility] ([facility])[address] [place] [address] MCV (RBC) [Entitic vol] 82.6 fL Normal 82.0-98.0 [facility] Comment on above: Performed By: #### L [id number] ####[facility] ([facility])[address] [place] [address] Monocytes (Bld) [#/Vol] 0.54 10*3/uL Normal 0.10-1.00 [facility] Comment on above: Performed By: #### L [id number] ####[facility] ([facility])[address] [place] [address] Monocytes/100 WBC (Bld) 10.5 % Normal 5.0-12.0 [facility] Comment on above: Performed By: #### L [id number] ####[facility] ([facility])[address] [place] [address] Neutrophils (Bld) [#/Vol] 4.13 10*3/uL Normal 1.60-7.60 [facility] Comment on above: Performed By: #### L [id number] ####[facility] ([facility])[address] [place] [address] Neutrophils/100 WBC (Bld) 80.7 % High 40.0-72.0 [facility] Comment on above: Performed By: #### L [id number] ####[facility] ([facility])[address] [place] [address] NRBC (PER 100 WBCS) BY AUTOMATED COUNT 0.0 % Normal 0 [facility] Comment on above: Performed By: #### L [id number] ####[facility] ([facility])[address] [place] [address] PLATELETS (10*3/UL) IN BLOOD AUTOMATED COUNT 205 10*3/uL Normal 150-400 [facility] Comment on above: Performed By: #### L [id number] ####[facility] ([facility])[address] [place] [address] RBC (Bld) [#/Vol] 3.10 10*6/uL Low 4.20-5.[address] [facility] Comment on above: Performed By: #### L [id number] ####[facility] ([facility])[address] [place] [address] WBC (Bld) [#/Vol] 5.12 10*3/uL Normal 4.00-10.[address] [facility] Comment on above: Performed By: #### L [id number] ####[facility] ([facility])[address] [place] [address] NURSNOTEon 11-19-2023 NURSNOTE Normal [facility] POCT GLUCOSE METER UNSOLICIT ED RESULTSon 11-19-2023 Glucose [Mass/Vol] 105 mg/dL Normal 70-105 [facility] Comment on above: Order Comment: Waive d Testing in the ED is performed under the ED CLIA certificate #[id number]. Result Comment: [email or web address] Performed By: #### L [id number] ####[facility] ([facility])[address] [place] [address] Glucose [Mass/Vol] 157 mg/dL High 70-105 [facility] Comment on above: Order Comment: Waive d Testing in the ED is performed under the ED CLIA certificate #[id number]. Result Comment: [email or web address] Performed By: #### L [id number] ####[facility] ([facility])[address] [place] [address] Glucose [Mass/Vol] 127 mg/dL High 70-105 [facility] Comment on above: Order Comment: Waive d Testing in the ED is performed under the ED CLIA certificate #[id number]. Result Comment: [email or web address] Performed By: #### L [id number] ####[facility] ([facility])[address] [place] [address] Glucose [Mass/Vol] 112 mg/dL High 70-105 [facility] Comment on above: Order Comment: Waive d Testing in the ED is performed under the ED CLIA certificate #[id number]. Result Comment: [email or web address] [id number] Value Noted Performed By: #### L [id number] ####[facility] ([facility])[address] [place] [address] [id number] 11-18-2023 [id number] Normal [facility] 30on 11-18-2023 30 Normal [facility] AFP TUMOR MARKERon 4 ALPHA FETOPROTEIN TUMOR MARKER 2 ng/mL Normal 0-9 [facility] Comment on above: Result Comment: INTE RPRETIVE [...] gender-specific referenceintervals for this test in the [facility] Directory([employer]).Performed By: [facility] [place] [id number] Director: Dashawn Dumont MD, PhDCLIA Number: [id number] Performed By: #### L [id number] ####[facility] ([facility])[address] [place] [address] [id number] 2023 ALPHA-1 ANTITRYPSIN 333 mg/dL High 90-200 [facility] Comment on above: Result Comment: To c onvert to umol/L, multiply mg/dL by 0.185Performed By: [facility] [place], [place] [address]Onjamcgypl Director: Dashawn Dumont MD, PhDCLIA Number: [id number] Performed By: #### L [id number] ####[facility] [place] [address] ANAon 11-18-2023 ALLYSSA TITER <1:40 Normal <=1:40 [facility] Comment on above: Result Comment: Test performed using STAR IFA ALLYSSA Hep-2 Test, a pre-standardized assay designed for the qualitative and semi-quantitative detection of antinuclear antibodies. Performed By: #### L [id number] ####[facility] ([facility])[address] [place] [address] ANESon 11-18-2023 ANES Normal [facility] ANES Normal [facility] ANTI-SMOOTH MUSCLE ANTIBODY TITERon 11-18-2023 SMOOTH MUSCLE AB, IGG TITER 1:80 High <1:20 [facility] Comment on above: Result Comment: INTE RPRETIVE INFORMATION: Smooth Muscle Ab, IgG Titer Less than 1:20 ........ Negative - No antibody detected. 1:20 - 1:80 .......... Weak Positive - Suggest repeat in two to three weeks with fresh specimen. 1:160 or greater ...... Positive - Suggestive of autoimmune hepatitis or chronic active hepatitis.Performed By: [facility] [place], [place] [address]Vtktxlybur Director: Dashawn Dumont MD, PhDCLIA Number: [id number] Performed By: #### L [id number] ####[facility] ([facility])[address] [place] [address] ANTI-SMOOTH MUSCLE ANTIBODY, IGG WITH REFLEX TO TITERon 11-18-2023 SMOOTH MUSCLE ANTIBODY 20 Units High 0-19 [facility] Comment on above: Result Comment: REFE RENCE [...] IFA ifsuspicion for AIH is strong.Performed By: [facility] [place], [place] [address]Klqcgaldge Director: Dashawn Dumont MD, PhDCLIA Number: [id number] Performed By: #### L [id number] ####[facility] [place] [address] CBC WITH AUTO DIFFERENTIALon 11-18-2023 Basophils (Bld) [#/Vol] 0.02 10*3/uL Normal 0.00-0.20 [facility] Comment on above: Performed By: #### L [id number] ####[facility] ([facility])[address] [place] [address] Basophils/100 WBC (Bld) 0.2 % Normal 0.0-1.0 [facility] Comment on above: Performed By: #### L [id number] ####[facility] ([facility])[address] [facility] [address] Eosinophils (Bld) [#/Vol] 0.01 10*3/uL Normal 0.00-0.50 [facility] Comment on above: Performed By: #### L [id number] ####[facility] ([facility])[address] [place] [address] Eosinophils/100 WBC (Bld) 0.1 % Normal 0.0-6.0 [facility] Comment on above: Performed By: #### L [id number] ####[facility] ([facility])[address] [place] [address] Erythrocyte distribution width (RBC) [Ratio] 16.3 % High 11.5-15.0 [facility] Comment on above: Performed By: #### L [id number] ####[facility] ([facility])[address] [place] [address] ERYTHROCYTE MEAN CORPUSCULAR HEMOGLOBIN CONCENTRATION (G/DL) BY AUTOMATED 32.1 g/dL Normal 32.0-35.0 [facility] Comment on above: Performed By: #### L [id number] ####[facility] ([facility]AK[facility])[address] [place] [address] Hematocrit (Bld) [Volume fraction] 23.7 % Low 39.0-55.0 [facility] Comment on above: Performed By: #### L [id number] ####[facility] ([facility])[address] [place] [address] Hemoglobin (Bld) [Mass/Vol] 7.6 g/dL Low 13.0-17.0 [facility] Comment on above: Performed By: #### L [id number] ####[facility] ([facility])[address] [place] [address] Immature granulocytes (Bld) [#/Vol] 0.05 10*3/uL Normal 0.00-0.20 [facility] Comment on above: Performed By: #### L [id number] ####[facility] ([facility])[address] [place] [address] Immature granulocytes/100 WBC (Bld) 0.6 % Normal 0.0-1.0 [facility] Comment on above: Performed By: #### L [id number] ####[facility] ([facility])[address] [place] [address] Lymphocytes (Bld) [#/Vol] 0.42 10*3/uL Low 1.20-4.00 [facility] Comment on above: Performed By: #### L [id number] ####[facility] ([facility])[address] [place] [address] Lymphocytes/100 WBC (Bld) 4.8 % Low 20.0-45.0 [facility] Comment on above: Performed By: #### L [id number] ####[facility] ([facility])[address] [place] [address] MCH (RBC) [Entitic mass] 26.5 pg Low 27.0-33.0 [facility] Comment on above: Performed By: #### L [id number] ####[facility] ([facility])[address] [place] [address] MCV (RBC) [Entitic vol] 82.6 fL Normal 82.0-98.0 [facility] Comment on above: Performed By: #### L [id number] ####[facility] ([facility])[address] [place] [address] Monocytes (Bld) [#/Vol] 0.82 10*3/uL Normal 0.10-1.00 [facility] Comment on above: Performed By: #### L [id number] ####[facility] ([facility])[address] [place] [address] Monocytes/100 WBC (Bld) 9.3 % Normal 5.0-12.0 [facility] Comment on above: Performed By: #### L [id number] ####[facility] ([facility])[address] [place] [address] Neutrophils (Bld) [#/Vol] 7.52 10*3/uL Normal 1.60-7.60 [facility] Comment on above: Performed By: #### L [id number] ####[facility] ([facility])[address] [place] [address] Neutrophils/100 WBC (Bld) 85.0 % High 40.0-72.0 [facility] Comment on above: Performed By: #### L [id number] ####[facility] ([facility])[address] [place] [address] NRBC (PER 100 WBCS) BY AUTOMATED COUNT 0.0 % Normal 0 [facility] Comment on above: Performed By: #### L [id number] ####[facility] ([facility])[address] [place] [address] PLATELETS (10*3/UL) IN BLOOD AUTOMATED COUNT 192 10*3/uL Normal 150-400 [facility] Comment on above: Performed By: #### L [id number] ####[facility] ([facility])[address] [place] [address] RBC (Bld) [#/Vol] 2.87 10*6/uL Low 4.20-5.[address] [facility] Comment on above: Performed By: #### L [id number] ####[facility] ([facility])[address] [place] [address] WBC (Bld) [#/Vol] 8.84 10*3/uL Normal 4.00-10.[address] [facility] Comment on above: Performed By: #### L [id number] ####[facility] ([facility])[address] [place] [address] CMV IGMon 11-18-2023 CMV IGM <8.0 Normal <=29.9 [facility] Comment on above: Result Comment: INTE RPRETIVE [...] Tissues andCellular and Tissue-Based Products (HCT/P).Performed By: [employer] [place] [id number] Director: Dashawn Dumont MD, PhDCLIA Number: [id number] Performed By: #### L [id number] ####[facility] ([facility])[address] [place] [address] COMPREHENSIVE METABOLIC PANE Sridhar 11-18-2023 Albumin [Mass/Vol] 2.6 g/dL Low 3.5-5.7 [facility] Comment on above: Performed By: #### L [id number] ####[facility] ([facility])[address] [place] [address] ALP [Catalytic activity/Vol] 252 U/L High 34-104 [facility] Comment on above: Performed By: #### L [id number] ####[facility] ([facility])[address] [place] [address] ALT [Catalytic activity/Vol] 280 U/L High 7-52 [facility] Comment on above: Performed By: #### L [id number] ####[facility] ([facility])[address] [place] [address] Anion gap [Moles/Vol] 8 mmol/L Normal 7-20 [facility] Comment on above: Performed By: #### L [id number] ####[facility] ([facility])[address] [place] [address] AST [Catalytic activity/Vol] 293 U/L High 13-39 [facility] Comment on above: Performed By: #### L [id number] ####[facility] ([facility])[address] [place] [address] Bilirubin [Mass/Vol] 0.9 mg/dL Normal 0.3-1.0 [facility] Comment on above: Performed By: #### L [id number] ####[facility] ([facility]ER)[address] [place] [address] Calcium [Mass/Vol] 7.8 mg/dL Low 8.6-10.3 [facility] Comment on above: Performed By: #### L [id number] ####[facility] ([facility])[address] [place] [address] Chloride [Moles/Vol] 97 mmol/L Low 98-107 [facility] Comment on above: Performed By: #### L [id number] ####[facility] ([facility])[address] [place] [address] CO2 [Moles/Vol] 27 mmol/L Normal 21-31 [facility] Comment on above: Performed By: #### L [id number] ####[facility] ([facility])[address] [place] [address] Creatinine [Mass/Vol] 0.38 mg/dL Low 0.70-1.30 [facility] Comment on above: Performed By: #### L [id number] ####[facility] ([facility])[address] [place] [address] GLOMERULAR FILTRATION RATE ML/MIN/1.73 SQ M.PREDICTED 114.8 mL/min/1.73m*2 Normal >60.0 [facility] Comment on above: Result Comment: [facility]???s estimated glomerular filtration rate (eGFR) [...] of individuals. Performed By: #### L [id number] ####[facility] ([facility])[address] [address] Glucose [Mass/Vol] 106 mg/dL High 70-100 [facility] Comment on above: Performed By: #### L [id number] ####[facility] ([facility])[address] [place] [address] Potassium [Moles/Vol] 4.3 mmol/L Normal 3.5-5.1 [facility] Comment on above: Performed By: #### L [id number] ####[facility] ([facility])[address] [place] [address] Protein [Mass/Vol] 6.4 g/dL Normal 6.0-8.3 [facility] Comment on above: Performed By: #### L [id number] ####[facility] ([facility])[address] [place] [address] Sodium [Moles/Vol] 128 mmol/L Low 136-145 [facility] Comment on above: Performed By: #### L [id number] ####[facility] ([facility])[address] [place] [address] Performed By: #### L [id number] ####[facility] ([facility])[address] [place] [address] Urea nitrogen [Mass/Vol] 14 mg/dL Normal 7-25 [facility] Comment on above: Performed By: #### L [id number] ####[facility] ([facility])[address] [place] [address] UREA NITROGEN/CREATININE (MASS RATIO) IN SER/PLAS 36.8 Normal [facility] Comment on above: Performed By: #### L [id number] ####[facility] ([facility])[address] [place] [address] CONSULTon 11-18-2023 CONSULT Normal [facility] CONSULT Normal [facility] DIGOXIN LEVELon 11-18-2023 DIGOXIN (NG/ML) IN SER/PLAS 0.6 ng/mL Low 0.7-2 [facility] Comment on above: Performed By: #### L [id number] ####[facility] ([facility])[address] [place] [address] GIOVANNA-GARG VIRUS VCA, IGMo n 11-18-2023 GIOVANNA-GARG VCA IGM 0.00 Normal <1.10 [facility] Comment on above: Result Comment: NORM AL RANGES:< OR = 0.90 NEGATIVE ; NO SIGNIFICANT LEVEL OF DETECTABLE EBV-VCA IgM AB0.91 - 1.09 EQUIVOCAL; REPEAT TESTING SUGGESTED> OR = 1.10 POSITIVE ; SIGNIFICANT LEVEL OF DETECTABLE EBV-VCA IgM AB Performed By: #### L [id number] ####[facility] ([facility])[address] [place] [address] HEMOGLOBINon 11-18-2023 Hemoglobin (Bld) [Mass/Vol] 7.7 g/dL Low 13.0-17.0 [facility] Comment on above: Performed By: #### L [id number] ####[facility] ([facility])[address] [place] [address] MITOCHONDRIAL ANTIBODIES, M2 on 11-18-2023 MITOCHONDRIAL M2 ANTIBODY 31.0 Units High 0.0-24.9 [facility] Comment on above: Result Comment: REFE RENCE [...] negative result doesnot rule out PBC.Performed By: [employer] [place], [place] [id number] Director: Dashawn Dumont MD, PhDCLIA Number: [id number] Performed By: #### L [id number] ####[facility] ([facility])[address] [place] [address] NURSNOTEon 11-18-2023 NURSNOTE Varices banded x 1 Normal [facility] POCT GLUCOSE METER UNSOLICIT ED RESULTSon 11-18-2023 Glucose [Mass/Vol] 107 mg/dL High 70-105 [facility] Comment on above: Order Comment: Waive d Testing in the ED is performed under the ED CLIA certificate #[id number]. Result Comment: [email or web address] [id number] Value Noted Performed By: #### L [id number] ####[facility] ([facility]ER)[address] [place] [address] Glucose [Mass/Vol] 124 mg/dL High 70-105 [facility] Comment on above: Order Comment: Waive d Testing in the ED is performed under the ED CLIA certificate #[id number]. Result Comment: [email or web address] Performed By: #### L [id number] ####[facility] ([facility])[address] [place] [address] Glucose [Mass/Vol] 114 mg/dL High 70-105 [facility] Comment on above: Order Comment: Waive d Testing in the ED is performed under the ED CLIA certificate #[id number]. Result Comment: [email or web address] Performed By: #### L [id number] ####[facility] ([facility])[address] [place] [address] SODIUMon 11-18-2023 Sodium [Moles/Vol] 128 mmol/L Low 136-145 [facility] Comment on above: Performed By: #### L [id number] ####[facility] ([facility])[address] [place] [address] Sodium [Moles/Vol] 129 mmol/L Low 136-145 [facility] Comment on above: Performed By: #### L [id number] ####[facility] ([facility])[address] [facility] [address] TISSUE TRANSGLUTAMINASE, IGA on 11-18-2023 TISSUE TRANSGLUTAMINASE, IGA <1.02 Normal 0.00-4.99 [facility] Comment on above: Result Comment: INTE RPRETIVE [...] response totherapy. Performed By: #### L [id number] ####[facility] ([facility])[address] [place] [address] ACETAMINOPHEN LEVELon 2023 ACETAMINOPHEN (UG/ML) IN SER/PLAS <10 Low 10-30 [facility] Comment on above: Performed By: #### L [id number] ####[facility] ([facility])[address] [place] [address] APTTon 11-17-2023 ACTIVATED PARTIAL THROMBOPLASTIN TIME IN PPP BY COAGULATION ASSAY 53.6 Seconds High 25.0-35.0 [facility] Comment on above: Result Comment: Clin ical significance of the APTT is questionable in the presence of heparin. Performed By: #### L [id number] ####[facility] ([facility])[address] [place] [address] BASIC METABOLIC PANELon Anion gap [Moles/Vol] 9 mmol/L Normal 7-20 [facility] Comment on above: Performed By: #### L [id number] ####[facility] ([facility])[address] [place] [address] Calcium [Mass/Vol] 8.0 mg/dL Low 8.6-10.3 [facility] Comment on above: Performed By: #### L [id number] ####[facility] ([facility])[address] [place] [address] Chloride [Moles/Vol] 94 mmol/L Low 98-107 [facility] Comment on above: Performed By: #### L [id number] ####[facility] ([facility])[address] [place] [address] CO2 [Moles/Vol] 27 mmol/L Normal 21-31 [facility] Comment on above: Performed By: #### L [id number] ####[facility] ([facility])[address] [place] [address] Creatinine [Mass/Vol] 0.51 mg/dL Low 0.70-1.30 [facility] Comment on above: Performed By: #### L [id number] ####[facility] ([facility])[address] [place] [address] GLOMERULAR FILTRATION RATE ML/MIN/1.73 SQ M.PREDICTED 105.1 mL/min/1.73m*2 Normal >60.0 [facility] Comment on above: Result Comment: [facility]???s estimated glomerular filtration rate (eGFR) [...] of individuals. Performed By: #### L [id number] ####[facility] ([facility])[address] [place] [address] Glucose [Mass/Vol] 156 mg/dL High 70-100 [facility] Comment on above: Performed By: #### L [id number] ####[facility] ([facility])[address] [place] [address] Potassium [Moles/Vol] 4.0 mmol/L Normal 3.5-5.1 [facility] Comment on above: Performed By: #### L [id number] ####[facility] ([facility])[address] [place] [address] Sodium [Moles/Vol] 126 mmol/L Low 136-145 [facility] Comment on above: Performed By: #### L [id number] ####[facility] ([facility])[address] [place] [address] Urea nitrogen [Mass/Vol] 18 mg/dL Normal 7-25 [facility] Comment on above: Performed By: #### L [id number] ####[facility] ([facility])[address] [place] [address] UREA NITROGEN/CREATININE (MASS RATIO) IN SER/PLAS 35.3 Normal [facility] Comment on above: Performed By: #### L [id number] ####[facility] ([facility])[address] [place] [address] CBC WITH AUTO DIFFERENTIALon 11-17-2023 Basophils (Bld) [#/Vol] 0.02 10*3/uL Normal 0.00-0.20 [facility] Comment on above: Performed By: #### L [id number] ####[facility] ([facility])[address] [place] [address] Basophils/100 WBC (Bld) 0.2 % Normal 0.0-1.0 [facility] Comment on above: Performed By: #### L [id number] ####[facility] ([facility])[address] [place] [address] Eosinophils (Bld) [#/Vol] 0.03 10*3/uL Normal 0.00-0.50 [facility] Comment on above: Performed By: #### L [id number] ####[facility] ([facility])[address] [place] [address] Eosinophils/100 WBC (Bld) 0.4 % Normal 0.0-6.0 [facility] Comment on above: Performed By: #### L [id number] ####[facility] ([facility])[address] [place] [address] Erythrocyte distribution width (RBC) [Ratio] 16.9 % High 11.5-15.0 [facility] Comment on above: Performed By: #### L [id number] ####[facility] ([facility])[address] [place] [address] ERYTHROCYTE MEAN CORPUSCULAR HEMOGLOBIN CONCENTRATION (G/DL) BY AUTOMATED 31.6 g/dL Low 32.0-35.0 [facility] Comment on above: Performed By: #### L [id number] ####[facility] ([facility])[address] [place] [address] Hematocrit (Bld) [Volume fraction] 21.5 % Low 39.0-55.0 [facility] Comment on above: Performed By: #### L [id number] ####[facility] ([facility])[address] [place] [address] Hemoglobin (Bld) [Mass/Vol] 6.8 g/dL Low 13.0-17.0 [facility] Comment on above: Performed By: #### L [id number] ####[facility] ([facility])[address] [place] [address] Immature granulocytes (Bld) [#/Vol] 0.04 10*3/uL Normal 0.00-0.20 [facility] Comment on above: Performed By: #### L [id number] ####[facility] ([facility])[address] [place] [address] Immature granulocytes/100 WBC (Bld) 0.5 % Normal 0.0-1.0 [facility] Comment on above: Performed By: #### L [id number] ####[facility] ([facility])[address] [place] [address] Lymphocytes (Bld) [#/Vol] 0.43 10*3/uL Low 1.20-4.00 [facility] Comment on above: Performed By: #### L [id number] ####[facility] ([facility])[address] [place] [address] Lymphocytes/100 WBC (Bld) 5.1 % Low 20.0-45.0 [facility] Comment on above: Performed By: #### L [id number] ####[facility] ([facility])[address] [place] [address] MCH (RBC) [Entitic mass] 26.3 pg Low 27.0-33.0 [facility] Comment on above: Performed By: #### L [id number] ####[facility] ([facility])[address] [place] [address] MCV (RBC) [Entitic vol] 83.0 fL Normal 82.0-98.0 [facility] Comment on above: Performed By: #### L [id number] ####[facility] ([facility])[address] [place] [address] Monocytes (Bld) [#/Vol] 0.77 10*3/uL Normal 0.10-1.00 [facility] Comment on above: Performed By: #### L [id number] ####[facility] ([facility])[address] [place] [address] Monocytes/100 WBC (Bld) 9.1 % Normal 5.0-12.0 [facility] Comment on above: Performed By: #### L [id number] ####[facility] ([facility])[address] [place] [address] Neutrophils (Bld) [#/Vol] 7.13 10*3/uL Normal 1.60-7.60 [facility] Comment on above: Performed By: #### L [id number] ####[facility] ([facility])[address] [place] [address] Neutrophils/100 WBC (Bld) 84.7 % High 40.0-72.0 [facility] Comment on above: Performed By: #### L [id number] ####[facility] ([facility])[address] [place] [address] NRBC (PER 100 WBCS) BY AUTOMATED COUNT 0.0 % Normal 0 [facility] Comment on above: Performed By: #### L [id number] ####[facility] ([facility])[address] [place] [address] PLATELETS (10*3/UL) IN BLOOD AUTOMATED COUNT 187 10*3/uL Normal 150-400 [facility] Comment on above: Performed By: #### L [id number] ####[facility] ([facility])[address] [place] [address] RBC (Bld) [#/Vol] 2.59 10*6/uL Low 4.20-5.[address] [facility] Comment on above: Performed By: #### L [id number] ####[facility] ([facility])[address] [place] [address] WBC (Bld) [#/Vol] 8.42 10*3/uL Normal 4.00-10.[address] [facility] Comment on above: Performed By: #### L [id number] ####[facility] ([facility])[address] [place] [address] CONSULTon 11-17-2023 CONSULT Normal [facility] EDPROVon 11-17-2023 EDPROV Normal [facility] HEPATIC FUNCTION PANELon Albumin [Mass/Vol] 2.7 g/dL Low 3.5-5.7 [facility] Comment on above: Performed By: #### L [id number] ####[facility] ([facility])[address] [place] [address] ALP [Catalytic activity/Vol] 308 U/L High 34-104 [facility] Comment on above: Performed By: #### L [id number] ####[facility] ([facility])[address] [place] [address] ALT [Catalytic activity/Vol] 349 U/L High 7-52 [facility] Comment on above: Performed By: #### L [id number] ####[facility] ([facility])[address] [place] [address] AST [Catalytic activity/Vol] 523 U/L High 13-39 [facility] Comment on above: Performed By: #### L [id number] ####[facility] ([facility])[address] [place] [address] Bilirubin [Mass/Vol] 0.4 mg/dL Normal 0.3-1.0 [facility] Comment on above: Performed By: #### L [id number] ####[facility] ([facility])[address] [place] [address] Magnesium [Mass/Vol] 0.4 mg/dL High 0-0.2 [facility] Comment on above: Performed By: #### L [id number] ####[facility] ([facility])[address] [address] Protein [Mass/Vol] 6.8 g/dL Normal 6.0-8.3 [facility] Comment on above: Performed By: #### L [id number] ####[facility] ([facility])[address] [place] [address] HEPATITIS PANEL, ACUTEon HEPATITIS A VIRUS IGM AB PRESENCE IN SER/PLAS Indeterminate Abnormal Nonreactive [facility] Comment on above: Order Comment: Patie nts with specimens exhibiting indeterminate test results should be retested at approximately one-week intervals. Performed By: #### L [id number] ####[facility] ([facility])[address] [place] [address] HEPATITIS B VIRUS CORE AB (PRESENCE) IN SER/PLAS BY IMM Non-Reactive Normal Nonreactive [facility] Comment on above: Order Comment: Patie nts with specimens exhibiting indeterminate test results should be retested at approximately one-week intervals. Performed By: #### L [id number] ####[facility] ([facility])[address] [place] [address] HEPATITIS B VIRUS SURFACE AG PRESENCE IN SERUM Non-Reactive Normal Nonreactive [facility] Comment on above: Order Comment: Patie nts with specimens exhibiting indeterminate test results should be retested at approximately one-week intervals. Performed By: #### L [id number] ####[facility] ([facility])[address] [place] [address] HEPATITIS C VIRUS AB PRESENCE IN SERUM Non-Reactive Normal Nonreactive [facility] Comment on above: Order Comment: Patie nts with specimens exhibiting indeterminate test results should be retested at approximately one-week intervals. Performed By: #### L [id number] ####[facility] ([facility])[address] [place] [address] HPon 11-17-2023 HP Normal [facility] PROTIME-INRon 11-17-2023 INR IN PPP BY COAGULATION ASSAY 1.57 High 0.90-1.10 [facility] Comment on above: Result Comment: ACCC P [...] CHEST 1995;108:231S-246S. Performed By: #### L [id number] ####[facility] [employer] [place] [address] PROTHROMBIN TIME (PT) IN PPP BY COAGULATION ASSAY 18.8 Seconds High 12.3-14.8 [facility] [facility] Comment on above: Performed By: #### L [id number] ####[facility] [employer])[address] [place] [address] TROPONIN Ion 11-17-2023 Troponin I.cardiac [Mass/Vol] 0.02 ng/mL Normal 0.00-0.04 [facility] Comment on above: Performed By: #### L [id number] ####[facility] [employer])[address] [place] [address] TYPE AND SCREENon 11-17-2023 AB SCREEN Negative Normal [facility] Comment on above: Performed By: #### L [id number] ####[facility]OD [facility], ABO group Nom (Bld) O Normal [facility] Comment on above: Performed By: #### L [id number] ####[facility], RH TYPE IN BLOOD Positive [facility] Comment on above: Performed By: #### L [id number] ####[facility], ANTI-XA (HEPARIN LEVEL)on HEPARIN UNFRACTIONATED (U/ML) IN PPP BY CHROMOGENIC METHOD 0.10 IU/mL Invalid Interpretation Code 0.3-0.7 [facility] Comment on above: Order Comment: Check anti-Xa level every 6 hours while on heparin infusion, or per protocol. Result Comment: Masha roxaban and Apixaban will interfere with the anti Xa assay used to monitor UFH and LMWH. Performed By: #### L [id number] ####[facility] (BEAKER)[address] [place] [address] HEPARIN UNFRACTIONATED (U/ML) IN PPP BY CHROMOGENIC METHOD <0.10 Invalid Interpretation Code 0.3-0.7 [facility] Comment on above: Order Comment: Check anti-Xa level every 6 hours while on heparin infusion, or per protocol. Result Comment: [place] roxaban and Apixaban will interfere with the anti Xa assay used to monitor UFH and LMWH. Performed By: #### L [id number] ####[facility] (BEAKER)[address] [place] [address] BASIC METABOLIC PANELon 10-12 Anion gap [Moles/Vol] 11 mmol/L Normal 7-20 [facility] Comment on above: Performed By: #### L [id number] ####[facility] (BEAKER)[address] [facility] [address] Calcium [Mass/Vol] 7.9 mg/dL Low 8.6-10.3 [facility] Comment on above: Performed By: #### L [id number] ####[facility] (BEAKER)[address] [place] [address] Chloride [Moles/Vol] 98 mmol/L Normal 98-107 [facility] Comment on above: Performed By: #### L [id number] ####[facility] ([facility])[address] [place] [address] CO2 [Moles/Vol] 26 mmol/L Normal 21-31 [facility] Comment on above: Performed By: #### L [id number] ####[facility] ([facility])[address] [place] [address] Creatinine [Mass/Vol] 0.31 mg/dL Low 0.70-1.30 [facility] Comment on above: Performed By: #### L [id number] ####[facility] ([facility])[address] [place] [address] GLOMERULAR FILTRATION RATE ML/MIN/1.73 SQ M.PREDICTED 122.1 mL/min/1.73m*2 Normal >60.0 [facility] Comment on above: Result Comment: [facility]???s estimated glomerular filtration rate (eGFR) [...] of individuals. Performed By: #### L [id number] ####[facility] ([facility])[address] [place] [address] Glucose [Mass/Vol] 120 mg/dL High 70-100 [facility] Comment on above: Performed By: #### L [id number] ####[facility] ([facility])[address] [place] [address] Potassium [Moles/Vol] 3.8 mmol/L Normal 3.5-5.1 [facility] Comment on above: Performed By: #### L [id number] ####[facility] ([facility])[address] [place] [address] Sodium [Moles/Vol] 131 mmol/L Low 136-145 [facility] Comment on above: Performed By: #### L [id number] ####[facility] ([facility])[address] [place] [address] Urea nitrogen [Mass/Vol] 13 mg/dL Normal 7-25 [facility] Comment on above: Performed By: #### L [id number] ####[facility] ([facility])[address] [place] [address] UREA NITROGEN/CREATININE (MASS RATIO) IN SER/PLAS 41.9 Normal [facility] Comment on above: Performed By: #### L [id number] ####[facility] ([facility])[address] [place] [address] CBCon 11-08-2023 Erythrocyte distribution width (RBC) [Ratio] 16.7 % High 11.5-15.0 [facility] Comment on above: Performed By: #### L [id number] ####[facility] ([facility])[address] [place] [address] ERYTHROCYTE MEAN CORPUSCULAR HEMOGLOBIN CONCENTRATION (G/DL) BY AUTOMATED 31.8 g/dL Low 32.0-35.0 [facility] Comment on above: Performed By: #### L [id number] ####[facility] ([facility])[address] [place] [address] Hematocrit (Bld) [Volume fraction] 27.4 % Low 39.0-55.0 [facility] Comment on above: Performed By: #### L [id number] ####[facility] (BEAKER)[address] [place] [address] Hemoglobin (Bld) [Mass/Vol] 8.7 g/dL Low 13.0-17.0 [facility] Comment on above: Performed By: #### L [id number] ####[facility] (BEAKER)[address] [place] [address] MCH (RBC) [Entitic mass] 26.2 pg Low 27.0-33.0 [facility] Comment on above: Performed By: #### L [id number] ####[facility] ([facility])[address] [place] [address] MCV (RBC) [Entitic vol] 82.5 fL Normal 82.0-98.0 [facility] Comment on above: Performed By: #### L [id number] ####[facility] ([facility])[address] [place] [address] PLATELETS (10*3/UL) IN BLOOD AUTOMATED COUNT 187 10*3/uL Normal 150-400 [facility] Comment on above: Performed By: #### L [id number] ####[facility] ([facility])[address] [place] [address] RBC (Bld) [#/Vol] 3.32 10*6/uL Low 4.20-5.[address] [facility] Comment on above: Performed By: #### L [id number] ####[facility] ([facility])[address] [place] [address] WBC (Bld) [#/Vol] 8.48 10*3/uL Normal 4.00-10.[address] [facility] Comment on above: Performed By: #### L [id number] ####[facility] ([facility])[address] [place] [address] DSon 11-08-2023 DS Normal [facility] MAGNESIUMon 11-08-2023 Magnesium [Mass/Vol] 1.6 mg/dL Low 1.9-2.7 [facility] Comment on above: Performed By: #### L [id number] ####[facility] ([facility])[address] [place] [address] NURSNOTEon 11-08-2023 NURSNOTE [employer] amilcar marques report to [facility] 3x with no answer Normal [facility] PHOSPHORUSon 11-08-2023 Magnesium [Mass/Vol] 2.8 mg/dL Normal 2.5-5.0 [facility] Comment on above: Performed By: #### L [id number] ####[facility] ([facility])[address] [place] [address] POCT GLUCOSE METER UNSOLICIT ED RESULTSon 11-08-2023 Glucose [Mass/Vol] 144 mg/dL High 70-105 [facility] Comment on above: Order Comment: Waive d Testing in the ED is performed under the ED CLIA certificate #[id number]. Result Comment: elac umsky Performed By: #### L [id number] ####[facility] ([facility])[address] [place] [address] Glucose [Mass/Vol] 141 mg/dL High 70-105 [facility] Comment on above: Order Comment: Waive d Testing in the ED is performed under the ED CLIA certificate #[id number]. Result Comment: elac umsky Performed By: #### L [id number] ####[facility] ([facility])[address] [place] [address] 30on 11-07-2023 30 Normal [facility] 30 [facility] ANTI-XA (HEPARIN LEVEL)on HEPARIN UNFRACTIONATED (U/ML) IN PPP BY CHROMOGENIC METHOD <0.10 Invalid Interpretation Code 0.3-0.7 [facility] Comment on above: Order Comment: Check anti-Xa level every 6 hours while on heparin infusion, or per protocol. Result Comment: [place] roxaban and Apixaban will interfere with the anti Xa assay used to monitor UFH and LMWH. Performed By: #### L [id number] ####[facility] ([facility])[address] [facility] [place] [address] HEPARIN UNFRACTIONATED (U/ML) IN PPP BY CHROMOGENIC METHOD <0.10 Invalid Interpretation Code 0.3-0.7 [facility] Comment on above: Order Comment: Check anti-Xa level every 6 hours while on heparin infusion, or per protocol. Result Comment: [place] roxaban and Apixaban will interfere with the anti Xa assay used to monitor UFH and LMWH. Performed By: #### L [id number] ####[facility] ([facility])[address] [place] [address] APTTon 11-07-2023 ACTIVATED PARTIAL THROMBOPLASTIN TIME IN PPP BY COAGULATION ASSAY 44.6 Seconds High 25.0-35.0 [facility] Comment on above: Order Comment: Basel ine aPTT before initiating heparin infusion. Result Comment: Clin ical significance of the APTT is questionable in the presence of heparin. Performed By: #### L [id number] ####[facility] ([facility])[address] [place] [address] BASIC METABOLIC PANELon 10-11 Anion gap [Moles/Vol] 16 mmol/L Normal 7-20 [facility] Comment on above: Performed By: #### L [id number] ####[facility] ([facility])[address] [place] [address] Calcium [Mass/Vol] 8.6 mg/dL Normal 8.6-10.3 [facility] Comment on above: Performed By: #### L [id number] ####[facility] ([facility])[address] [place] [address] Chloride [Moles/Vol] 97 mmol/L Low 98-107 [facility] Comment on above: Performed By: #### L [id number] ####[facility] ([facility])[address] [place] [address] CO2 [Moles/Vol] 21 mmol/L Normal 21-31 [facility] Comment on above: Performed By: #### L [id number] ####[facility] ([facility])[address] [place] [address] Creatinine [Mass/Vol] 0.32 mg/dL Low 0.70-1.30 [facility] Comment on above: Performed By: #### L [id number] ####[facility] ([facility])[address] [place] [address] GLOMERULAR FILTRATION RATE ML/MIN/1.73 SQ M.PREDICTED 121.0 mL/min/1.73m*2 Normal >60.0 [facility] Comment on above: Result Comment: [facility]???s estimated glomerular filtration rate (eGFR) [...] of individuals. Performed By: #### L [id number] ####[facility] (BEAKER)[address] [place] [address] Glucose [Mass/Vol] 114 mg/dL High 70-100 [facility] Comment on above: Performed By: #### L [id number] ####[facility] (BEAKER)[address] [place] [address] Potassium [Moles/Vol] 4.1 mmol/L Normal 3.5-5.1 [facility] Comment on above: Performed By: #### L [id number] ####[facility] (BEAKER)[address] [place] [address] Sodium [Moles/Vol] 130 mmol/L Low 136-145 [facility] Comment on above: Performed By: #### L [id number] ####[facility] (BEAKER)[address] [place] [address] Urea nitrogen [Mass/Vol] 5 mg/dL Low 7-25 [facility] Comment on above: Performed By: #### L [id number] ####[facility] (BEAKER)[address] [place] [address] UREA NITROGEN/CREATININE (MASS RATIO) IN SER/PLAS 15.6 Normal [facility] Comment on above: Performed By: #### L [id number] ####[facility] (BEAKER)[address] [place] [address] CBCon 11-07-2023 Erythrocyte distribution width (RBC) [Ratio] 16.8 % High 11.5-15.0 [facility] Comment on above: Performed By: #### L [id number] ####[facility] ([facility])[address] [place] [address] ERYTHROCYTE MEAN CORPUSCULAR HEMOGLOBIN CONCENTRATION (G/DL) BY AUTOMATED 32.1 g/dL Normal 32.0-35.0 [facility] Comment on above: Performed By: #### L [id number] ####[facility] ([facility])[address] [place] [address] Hematocrit (Bld) [Volume fraction] 29.3 % Low 39.0-55.0 [facility] Comment on above: Performed By: #### L [id number] ####[facility] ([facility])[address] [place] [address] Hemoglobin (Bld) [Mass/Vol] 9.4 g/dL Low 13.0-17.0 [facility] Comment on above: Performed By: #### L [id number] ####[facility] ([facility])[address] [place] [address] MCH (RBC) [Entitic mass] 26.6 pg Low 27.0-33.0 [facility] Comment on above: Performed By: #### L [id number] ####[facility] ([facility])[address] [place] [address] MCV (RBC) [Entitic vol] 83.0 fL Normal 82.0-98.0 [facility] Comment on above: Performed By: #### L [id number] ####[facility] ([facility])[address] [place] [address] PLATELETS (10*3/UL) IN BLOOD AUTOMATED COUNT 214 10*3/uL Normal 150-400 [facility] Comment on above: Performed By: #### L [id number] ####[facility] ([facility])[address] [place] [address] RBC (Bld) [#/Vol] 3.53 10*6/uL Low 4.20-5.[address] [facility] Comment on above: Performed By: #### L [id number] ####[facility] ([facility])[address] [place] [address] WBC (Bld) [#/Vol] 10.83 10*3/uL High 4.00-10.60 [facility] Comment on above: Performed By: #### L [id number] ####[facility] ([facility])[address] [place] [address] PLATELET COUNTon 11-07-2023 PLATELETS (10*3/UL) IN BLOOD AUTOMATED COUNT 208 10*3/uL Normal 150-400 [facility] Comment on above: Performed By: #### L [id number] ####[facility] ([facility])[address] [place] [address] POCT GLUCOSE METER UNSOLICIT ED RESULTSon 11-07-2023 Glucose [Mass/Vol] 143 mg/dL High 70-105 [facility] Comment on above: Order Comment: Waive d Testing in the ED is performed under the ED CLIA certificate #[id number]. Result Comment: [email or web address] Performed By: #### L [id number] ####[facility] ([facility])[address] [place] [address] Glucose [Mass/Vol] 131 mg/dL High 70-105 [facility] Comment on above: Order Comment: Waive d Testing in the ED is performed under the ED CLIA certificate #[id number]. Result Comment: elac umsky Performed By: #### L [id number] ####[facility] ([facility])[address] [place] [address] Glucose [Mass/Vol] 177 mg/dL High 70-105 [facility] Comment on above: Order Comment: Waive d Testing in the ED is performed under the ED CLIA certificate #[id number]. Result Comment: elac umsky Performed By: #### L [id number] ####[facility] ([facility])[address] [place] [address] Glucose [Mass/Vol] 133 mg/dL High 70-105 [facility] Comment on above: Order Comment: Waive d Testing in the ED is performed under the ED CLIA certificate #[id number]. Result Comment: precious jaimes Performed By: #### L [id number] ####[facility] (BEAKER)[address] [place] [address] APTTon 11-06-2023 ACTIVATED PARTIAL THROMBOPLASTIN TIME IN PPP BY COAGULATION ASSAY 43.9 Seconds High 25.0-35.0 [facility] Comment on above: Order Comment: Check aPTT every 6 hours while on heparin infusion, or per protocol. Result Comment: Clin ical significance of the APTT is questionable in the presence of heparin. Performed By: #### L [id number] ####[facility] ([facility])[address] [place] [address] CBCon 11-06-2023 Erythrocyte distribution width (RBC) [Ratio] 16.8 % High 11.5-15.0 [facility] Comment on above: Performed By: #### L [id number] ####[facility] ([facility])[address] [place] [address] ERYTHROCYTE MEAN CORPUSCULAR HEMOGLOBIN CONCENTRATION (G/DL) BY AUTOMATED 32.0 g/dL Normal 32.0-35.0 [facility] Comment on above: Performed By: #### L [id number] ####[facility] ([facility])[address] [place] [address] Hematocrit (Bld) [Volume fraction] 27.8 % Low 39.0-55.0 [facility] Comment on above: Performed By: #### L [id number] ####[facility] (BEAKER)[address] [place] [address] Hemoglobin (Bld) [Mass/Vol] 8.9 g/dL Low 13.0-17.0 [facility] Comment on above: Performed By: #### L [id number] ####[facility] (BEAKER)[address] [place] [address] MCH (RBC) [Entitic mass] 26.8 pg Low 27.0-33.0 [facility] Comment on above: Performed By: #### L [id number] ####[facility] ([facility])[address] [place] [address] MCV (RBC) [Entitic vol] 83.7 fL Normal 82.0-98.0 [facility] Comment on above: Performed By: #### L [id number] ####[facility] ([facility])[address] [place] [address] PLATELETS (10*3/UL) IN BLOOD AUTOMATED COUNT 175 10*3/uL Normal 150-400 [facility] Comment on above: Performed By: #### L [id number] ####[facility] ([facility])[address] [place] [address] RBC (Bld) [#/Vol] 3.32 10*6/uL Low 4.20-5.[address] [facility] Comment on above: Performed By: #### L [id number] ####[facility] ([facility])[address] [place] [address] WBC (Bld) [#/Vol] 8.08 10*3/uL Normal 4.00-10.[address] [facility] Comment on above: Performed By: #### L [id number] ####[facility] ([facility])[address] [place] [address] COMPREHENSIVE METABOLIC PANE Sridhar 11-06-2023 Albumin [Mass/Vol] 3.0 g/dL Low 3.5-5.7 [facility] Comment on above: Performed By: #### L [id number] ####[facility] ([facility])[address] [place] [address] ALP [Catalytic activity/Vol] 139 U/L High 34-104 [facility] Comment on above: Performed By: #### L [id number] ####[facility] ([facility])[address] [place] [address] ALT [Catalytic activity/Vol] 80 U/L High 7-52 [facility] Comment on above: Performed By: #### L [id number] ####[facility] (BEAKER)[address] [place] [address] Anion gap [Moles/Vol] 9 mmol/L Normal 7-20 [facility] Comment on above: Performed By: #### L [id number] ####[facility] (BEAKER)[address] [place] [address] AST [Catalytic activity/Vol] 71 U/L High 13-39 [facility] Comment on above: Performed By: #### L [id number] ####[facility] (BEAKER)[address] [place] [address] Bilirubin [Mass/Vol] 0.6 mg/dL Normal 0.3-1.0 [facility] Comment on above: Performed By: #### L [id number] ####[facility] (BEAKER)[address] [place] [address] Calcium [Mass/Vol] 8.3 mg/dL Low 8.6-10.3 [facility] Comment on above: Performed By: #### L [id number] ####[facility] (BEAKER)[address] [place] [address] Chloride [Moles/Vol] 97 mmol/L Low 98-107 [facility] Comment on above: Performed By: #### L [id number] ####[facility] (BEAKER)[address] [place] [address] CO2 [Moles/Vol] 27 mmol/L Normal 21-31 [facility] Comment on above: Performed By: #### L [id number] ####[facility] (BEAKER)[address] [place] [address] Creatinine [Mass/Vol] 0.35 mg/dL Low 0.70-1.30 [facility] Comment on above: Performed By: #### L [id number] ####[facility] (BEAKER)[address] [place] [address] GLOMERULAR FILTRATION RATE ML/MIN/1.73 SQ M.PREDICTED 117.7 mL/min/1.73m*2 Normal >60.0 [facility] Comment on above: Result Comment: [facility]???s estimated glomerular filtration rate (eGFR) [...] of individuals. Performed By: #### L [id number] ####[facility] ([facility])[address] [employer] [place] [address] Glucose [Mass/Vol] 153 mg/dL High 70-100 [facility] Comment on above: Performed By: #### L [id number] ####[facility] ([facility])[address] [place] [address] Potassium [Moles/Vol] 2.8 mmol/L Invalid Interpretation Code 3.5-5.1 [facility] Comment on above: Performed By: #### L [id number] ####[facility] ([facility])[address] [place] [address] Protein [Mass/Vol] 6.1 g/dL Normal 6.0-8.3 [facility] Comment on above: Performed By: #### L [id number] ####[facility] ([facility])[address] [place] [address] Sodium [Moles/Vol] 130 mmol/L Low 136-145 [facility] Comment on above: Performed By: #### L [id number] ####[facility] ([facility])[address] [place] [address] Urea nitrogen [Mass/Vol] 4 mg/dL Low 7-25 [facility] Comment on above: Performed By: #### L [id number] ####[facility] ([facility])[address] [place] [address] UREA NITROGEN/CREATININE (MASS RATIO) IN SER/PLAS 11.4 [facility] Comment on above: Performed By: #### L [id number] ####[facility] ([facility])[address] [place] [address] POCT GLUCOSE METER UNSOLICIT ED RESULTSon 11-06-2023 Glucose [Mass/Vol] 159 mg/dL High 70-105 [facility] Comment on above: Order Comment: Waive d Testing in the ED is performed under the ED CLIA certificate #[id number]. Result Comment: [email or web address] Performed By: #### L [id number] ####[facility] ([facility])[address] [place] [address] Glucose [Mass/Vol] 122 mg/dL High 70-105 [facility] Comment on above: Order Comment: Waive d Testing in the ED is performed under the ED CLIA certificate #[id number]. Result Comment: kshe llh Performed By: #### L [id number] ####[facility] ([facility])[address] [place] [address] Glucose [Mass/Vol] 140 mg/dL High 70-105 [facility] Comment on above: Order Comment: Waive d Testing in the ED is performed under the ED CLIA certificate #[id number]. Result Comment: kshe llh Performed By: #### L [id number] ####[facility] ([facility])[address] [place] [address] Glucose [Mass/Vol] 144 mg/dL High 70-105 [facility] Comment on above: Order Comment: Waive d Testing in the ED is performed under the ED CLIA certificate #[id number]. Result Comment: kshe llh Performed By: #### L [id number] ####[facility] ([facility])[address] [place] [address] 30on 11-05-2023 30 Normal [facility] APTTon 11-05-2023 ACTIVATED PARTIAL THROMBOPLASTIN TIME IN PPP BY COAGULATION ASSAY 45.3 Seconds High 25.0-35.0 [facility] Comment on above: Order Comment: Check aPTT every 6 hours while on heparin infusion, or per protocol. Result Comment: Clin ical significance of the APTT is questionable in the presence of heparin. Performed By: #### L [id number] ####[facility] ([facility])[address] [place] [address] CBCon 11-05-2023 Erythrocyte distribution width (RBC) [Ratio] 16.8 % High 11.5-15.0 [facility] Comment on above: Performed By: #### L [id number] ####[facility] ([facility])[address] [place] [address] ERYTHROCYTE MEAN CORPUSCULAR HEMOGLOBIN CONCENTRATION (G/DL) BY AUTOMATED 32.1 g/dL Normal 32.0-35.0 [facility] Comment on above: Performed By: #### L [id number] ####[facility] ([facility])[address] [place] [address] Hematocrit (Bld) [Volume fraction] 24.3 % Low 39.0-55.0 [facility] Comment on above: Performed By: #### L [id number] ####[facility] ([facility])[address] [place] [address] Hemoglobin (Bld) [Mass/Vol] 7.8 g/dL Low 13.0-17.0 [facility] Comment on above: Performed By: #### L [id number] ####[facility] ([facility])[address] [place] [address] MCH (RBC) [Entitic mass] 27.5 pg Normal 27.0-33.0 [facility] Comment on above: Performed By: #### L [id number] ####[facility] ([facility])[address] [place] [address] MCV (RBC) [Entitic vol] 85.6 fL Normal 82.0-98.0 [facility] Comment on above: Performed By: #### L [id number] ####[facility] ([facility])[address] [place] [address] PLATELETS (10*3/UL) IN BLOOD AUTOMATED COUNT 124 10*3/uL Low 150-400 [facility] Comment on above: Performed By: #### L [id number] ####[facility] ([facility])[address] [place] [address] RBC (Bld) [#/Vol] 2.84 10*6/uL Low 4.20-5.[address] [facility] Comment on above: Performed By: #### L [id number] ####[facility] ([facility])[address] [place] [address] WBC (Bld) [#/Vol] 3.24 10*3/uL Low 4.00-10.[address] [facility] Comment on above: Performed By: #### L [id number] ####[facility] ([facility])[address] [place] [address] COMPREHENSIVE METABOLIC PANE Sridhar 11-05-2023 Albumin [Mass/Vol] 2.9 g/dL Low 3.5-5.7 [facility] Comment on above: Performed By: #### L [id number] ####[facility] ([facility])[address] [place] [address] ALP [Catalytic activity/Vol] 132 U/L High 34-104 [facility] Comment on above: Performed By: #### L [id number] ####[facility] ([facility])[address] [place] [address] ALT [Catalytic activity/Vol] 88 U/L High 7-52 [facility] Comment on above: Performed By: #### L [id number] ####[facility] ([facility])[address] [place] [address] Anion gap [Moles/Vol] 7 mmol/L Normal 7-20 [facility] Comment on above: Performed By: #### L [id number] ####[facility] ([facility])[address] [place] [address] AST [Catalytic activity/Vol] 61 U/L High 13-39 [facility] Comment on above: Performed By: #### L [id number] ####[facility] ([facility])[address] [place] [address] Bilirubin [Mass/Vol] 0.3 mg/dL Normal 0.3-1.0 [facility] Comment on above: Performed By: #### L [id number] ####[facility] ([facility])[address] [place] [address] Calcium [Mass/Vol] 8.4 mg/dL Low 8.6-10.3 [facility] Comment on above: Performed By: #### L [id number] ####[facility] ([facility])[address] [place] [address] Chloride [Moles/Vol] 104 mmol/L Normal 98-107 [facility] Comment on above: Performed By: #### L [id number] ####[facility] ([facility])[address] [place] [address] CO2 [Moles/Vol] 26 mmol/L Normal 21-31 [facility] Comment on above: Performed By: #### L [id number] ####[facility] ([facility])[address] [place] [address] Creatinine [Mass/Vol] 0.42 mg/dL Low 0.70-1.30 [facility] Comment on above: Performed By: #### L [id number] ####[facility] ([facility])[address] [place] [address] GLOMERULAR FILTRATION RATE ML/MIN/1.73 SQ M.PREDICTED 111.4 mL/min/1.73m*2 Normal >60.0 [facility] Comment on above: Result Comment: [facility]???s estimated glomerular filtration rate (eGFR) [...] of individuals. Performed By: #### L [id number] ####[facility] ([facility])[address] [place] [address] Glucose [Mass/Vol] 120 mg/dL High 70-100 [facility] Comment on above: Performed By: #### L [id number] ####[facility] ([facility])[address] [place] [address] Potassium [Moles/Vol] 3.4 mmol/L Low 3.5-5.1 [facility] Comment on above: Performed By: #### L [id number] ####[facility] ([facility])[address] [place] [address] Protein [Mass/Vol] 5.6 g/dL Low 6.0-8.3 [facility] Comment on above: Performed By: #### L [id number] ####[facility] ([facility])[address] [place] [address] Sodium [Moles/Vol] 134 mmol/L Low 136-145 [facility] Comment on above: Performed By: #### L [id number] ####[facility] ([facility])[address] [place] [address] Urea nitrogen [Mass/Vol] 9 mg/dL Normal 7-25 [facility] Comment on above: Performed By: #### L [id number] ####[facility] ([facility])[address] [place] [address] UREA NITROGEN/CREATININE (MASS RATIO) IN SER/PLAS 21.4 Normal [facility] Comment on above: Performed By: #### L [id number] ####[facility] ([facility])[address] [place] [address] CONSULTon 11-05-2023 CONSULT Normal [facility] POCT GLUCOSE METER UNSOLICIT ED RESULTSon 11-05-2023 Glucose [Mass/Vol] 119 mg/dL High 70-105 [facility] Comment on above: Order Comment: Waive d Testing in the ED is performed under the ED CLIA certificate #[id number]. Result Comment: [email or web address] Performed By: #### L [id number] ####[facility] ([facility])[address] [address] Glucose [Mass/Vol] 213 mg/dL High 70-105 [facility] Comment on above: Order Comment: Waive d Testing in the ED is performed under the ED CLIA certificate #[id number]. Result Comment: [email or web address] Performed By: #### L [id number] ####[facility] ([facility])[address] [address] Glucose [Mass/Vol] 163 mg/dL High 70-105 [facility] Comment on above: Order Comment: Waive d Testing in the ED is performed under the ED CLIA certificate #[id number]. Result Comment: [email or web address] Performed By: #### L [id number] ####[facility] ([facility])[address] [facility] [place] [address] Glucose [Mass/Vol] 106 mg/dL High 70-105 [facility] Comment on above: Order Comment: Waive d Testing in the ED is performed under the ED CLIA certificate #[id number]. Result Comment: [email or web address] Performed By: #### L [id number] ####[facility] ([facility])[address] [employer] [place] [address] VANCOMYCIN, TROUGHon 024 VANCOMYCIN (UG/ML) IN SER/PLAS - TROUGH 11.5 ug/mL Normal 5.0-20.0 [facility] Comment on above: Order Comment: Pleas e draw one hour before vancomycin infusion Performed By: #### L [id number] ####[facility] ([facility])[address] [place] [address] 30on 11-04-2023 30 Normal [facility] 30 Normal [facility] 36on 11-04-2023 36 Yes. Patient can kenia l us after surgery to reschedule an appointment [facility] 36 Pt canceled appt on 11/09/23 due to patient having surgery today. would like to know if he need to reschedule? Normal [facility] ANESon 11-04-2023 ANES Normal [facility] ANES Normal [facility] APTTon 11-04-2023 ACTIVATED PARTIAL THROMBOPLASTIN TIME IN PPP BY COAGULATION ASSAY 80.2 Seconds High 25.0-35.0 [facility] Comment on above: Order Comment: Check aPTT every 6 hours while on heparin infusion, or per protocol. Result Comment: Clin ical significance of the APTT is questionable in the presence of heparin. Performed By: #### L [id number] ####[facility] ([facility])[address] [place] [address] CBCon 11-04-2023 Erythrocyte distribution width (RBC) [Ratio] 16.5 % High 11.5-15.0 [facility] Comment on above: Performed By: #### L [id number] ####[facility] ([facility])[address] [place] [address] ERYTHROCYTE MEAN CORPUSCULAR HEMOGLOBIN CONCENTRATION (G/DL) BY AUTOMATED 31.5 g/dL Low 32.0-35.0 [facility] Comment on above: Performed By: #### L [id number] ####[facility] ([facility])[address] [place] [address] Hematocrit (Bld) [Volume fraction] 24.1 % Low 39.0-55.0 [facility] Comment on above: Performed By: #### L [id number] ####[facility] ([facility])[address] [place] [address] Hemoglobin (Bld) [Mass/Vol] 7.6 g/dL Low 13.0-17.0 [facility] Comment on above: Performed By: #### L [id number] ####[facility] ([facility])[address] [place] [address] MCH (RBC) [Entitic mass] 27.0 pg Normal 27.0-33.0 [facility] Comment on above: Performed By: #### L [id number] ####[facility] ([facility])[address] [place] [address] MCV (RBC) [Entitic vol] 85.5 fL Normal 82.0-98.0 [facility] Comment on above: Performed By: #### L [id number] ####[facility] ([facility])[address] [place] [address] PLATELETS (10*3/UL) IN BLOOD AUTOMATED COUNT 132 10*3/uL Low 150-400 [facility] Comment on above: Performed By: #### L [id number] ####[facility] ([facility])[address] [place] [address] RBC (Bld) [#/Vol] 2.82 10*6/uL Low 4.20-5.[address] [facility] Comment on above: Performed By: #### L [id number] ####[facility] ([facility])[address] [place] [address] WBC (Bld) [#/Vol] 4.29 10*3/uL Normal 4.00-10.[address] [facility] Comment on above: Performed By: #### L [id number] ####[facility] ([facility])[address] [place] [address] COMPREHENSIVE METABOLIC PANE Sridhar 11-04-2023 Albumin [Mass/Vol] 2.9 g/dL Low 3.5-5.7 [facility] Comment on above: Performed By: #### L [id number] ####[facility] ([facility])[address] [place] [address] ALP [Catalytic activity/Vol] 116 U/L High 34-104 [facility] Comment on above: Performed By: #### L [id number] ####[facility] ([facility])[address] [place] [address] ALT [Catalytic activity/Vol] 92 U/L High 7-52 [facility] Comment on above: Performed By: #### L [id number] ####[facility] ([facility])[address] [place] [address] Anion gap [Moles/Vol] 9 mmol/L Normal 7-20 [facility] Comment on above: Performed By: #### L [id number] ####[facility] ([facility])[address] [place] [address] AST [Catalytic activity/Vol] 47 U/L High 13-39 [facility] Comment on above: Performed By: #### L [id number] ####[facility] ([facility])[address] [place] [address] Bilirubin [Mass/Vol] 0.4 mg/dL Normal 0.3-1.0 [facility] Comment on above: Performed By: #### L [id number] ####[facility] ([facility])[address] [place] [address] Calcium [Mass/Vol] 8.1 mg/dL Low 8.6-10.3 [facility] Comment on above: Performed By: #### L [id number] ####[facility] ([facility])[address] [place] [address] Chloride [Moles/Vol] 100 mmol/L Normal 98-107 [facility] Comment on above: Performed By: #### L [id number] ####[facility] ([facility])[address] [place] [address] CO2 [Moles/Vol] 25 mmol/L Normal 21-31 [facility] Comment on above: Performed By: #### L [id number] ####[facility] ([facility])[address] [place] [address] Creatinine [Mass/Vol] 0.37 mg/dL Low 0.70-1.30 [facility] Comment on above: Performed By: #### L [id number] ####[facility] ([facility])[address] [place] [address] GLOMERULAR FILTRATION RATE ML/MIN/1.73 SQ M.PREDICTED 115.8 mL/min/1.73m*2 Normal >60.0 [facility] Comment on above: Result Comment: [facility]???s estimated glomerular filtration rate (eGFR) [...] of individuals. Performed By: #### L [id number] ####[facility] ([facility])[address] [place] [address] Glucose [Mass/Vol] 111 mg/dL High 70-100 [facility] Comment on above: Performed By: #### L [id number] ####[facility] ([facility])[address] [place] [address] Potassium [Moles/Vol] 3.3 mmol/L Low 3.5-5.1 [facility] Comment on above: Performed By: #### L [id number] ####[facility] ([facility])[address] [place] [address] Protein [Mass/Vol] 5.6 g/dL Low 6.0-8.3 [facility] Comment on above: Performed By: #### L [id number] ####[facility] ([facility])[address] [place] [address] Sodium [Moles/Vol] 131 mmol/L Low 136-145 [facility] Comment on above: Performed By: #### L [id number] ####[facility] ([facility])[address] [place] [address] Urea nitrogen [Mass/Vol] 9 mg/dL Normal 7-25 [facility] Comment on above: Performed By: #### L [id number] ####[facility] ([facility])[address] [place] [address] UREA NITROGEN/CREATININE (MASS RATIO) IN SER/PLAS 24.3 Normal [facility] Comment on above: Performed By: #### L [id number] ####[facility] ([facility])[address] [place] [address] HISTOLOGY - TISSUE EXAMon LAB AP CASE REPORT Normal [facility] Comment on above: Order Comment: Pre-o p diagnosis:Limb ischemia [I99.8] Result Comment: Surg ical Pathology Case: [id number] Provider: Wen Zapata MD Collected: 11/04/2023 1850Ordering Location: [facility] Main Operating Room Received: 11/07/2023 0632Pathologist: MONICA Alanpecimen: Leg, 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 Leg. Normal [facility] Comment on above: Order Comment: Pre-o p diagnosis:Limb ischemia [I99.8] Result Comment: Rece ived in formalin is a container labeled Tudisha Joy, LEFT LOWER LEG - BELOW KNEE AMPUTATION [...] as follows:A1: Skin and soft tissue margin, quality control representative sectionA2: Bone marrow, tibial marginA3: Great toe, quality control representative longitudinal section after decalcificationA4: Areas of erythematous erosion, quality control representative sectionsA5: Anterior tibial artery, quality control representative cross sectionsA6: Posterior tibial artery, quality control representative cross sectionsA7: Dorsalis pedis artery, quality control representative cross section Shani Smyth, Student Fellow Performed By: #### L [id number] ####[facility] ([facility])[address] [place] [address] LAB AP MICROSCOPIC DESCRIPTION Microscopic examination performed. 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 - Necrotic bone and soft tissues. - Soft tissue resection margin viable. - Bone marrow margin free of acute inflammation. - Arterial artheromatous plaques with calcification. Performed By: #### L [id number] ####[facility] ([facility])[address] [place] [address] OPNOTEon 11-04-2023 OPNOTE [facility] OSMOLALITY, URINEon 11-04-19 24 OSMOLALITY, URINE 383 mOsm/kg Normal 80-1300 [facility] Comment on above: Result Comment: Test Performed by [facility] [address] [place] [id number] - Released 11/04/2023 16:39 Performed By: #### L [id number] ####[facility] [id number] [place] [address] POCT GLUCOSE METER UNSOLICIT ED RESULTSon 11-04-2023 Glucose [Mass/Vol] 117 mg/dL High 70-105 [facility] Comment on above: Order Comment: Waive d Testing in the ED is performed under the ED CLIA certificate #[id number]. Result Comment: [email or web address] Performed By: #### L [id number] ####[facility] ([facility])[address] [place] [address] Glucose [Mass/Vol] 118 mg/dL High 70-105 [facility] Comment on above: Order Comment: Waive d Testing in the ED is performed under the ED CLIA certificate #[id number]. Result Comment: [email or web address] Performed By: #### L [id number] ####[facility] ([facility])[address] [place] [address] Glucose [Mass/Vol] 131 mg/dL High 70-105 [facility] Comment on above: Order Comment: Waive d Testing in the ED is performed under the ED CLIA certificate #[id number]. Result Comment: [email or web address] Performed By: #### L [id number] ####[facility] ([facility])[address] [place] [address] SODIUM, URINE, RANDOMon 10-11 Sodium (U) [Moles/Vol] 86 mmol/L Normal [facility] Comment on above: Performed By: #### L [id number] ####[facility] ([facility])[address] [place] [address] TYPE AND SCREENon 11-04-2023 AB SCREEN Negative Normal [facility] Comment on above: Performed By: #### L [id number] ####[facility] B[facility]OD [facility], ABO group Nom (Bld) O Normal [facility] Comment on above: Performed By: #### L [id number] ####[facility], RH TYPE IN BLOOD Positive Normal [facility] Comment on above: Performed By: #### L [id number] ####[facility], Telephoneon 11-04-2023 Telephone Normal [facility] 30on 11-03-2023 30 Normal [facility] APTTon 11-03-2023 ACTIVATED PARTIAL THROMBOPLASTIN TIME IN PPP BY COAGULATION ASSAY 72.3 Seconds High 25.0-35.0 [facility] Comment on above: Order Comment: Check aPTT every 6 hours while on heparin infusion, or per protocol. Result Comment: Clin ical significance of the APTT is questionable in the presence of heparin. Performed By: #### L [id number] ####[facility] ([facility])[address] [place] [address] ACTIVATED PARTIAL THROMBOPLASTIN TIME IN PPP BY COAGULATION ASSAY 75.8 Seconds High 25.0-35.0 [facility] Comment on above: Order Comment: Check aPTT every 6 hours while on heparin infusion, or per protocol. Result Comment: Clin ical significance of the APTT is questionable in the presence of heparin. Performed By: #### L [id number] ####[facility] ([facility])[address] [place] [address] ACTIVATED PARTIAL THROMBOPLASTIN TIME IN PPP BY COAGULATION ASSAY 84.3 Seconds High 25.0-35.0 [facility] Comment on above: Order Comment: Check aPTT every 6 hours while on heparin infusion, or per protocol. Result Comment: Clin ical significance of the APTT is questionable in the presence of heparin. Performed By: #### L [id number] ####[facility] ([facility])[address] [place] [address] BASIC METABOLIC PANELon 10-11 Anion gap [Moles/Vol] 8 mmol/L Normal 7-20 [facility] Comment on above: Performed By: #### L [id number] ####[facility] ([facility])[address] [place] [address] Calcium [Mass/Vol] 8.7 mg/dL Normal 8.6-10.3 [facility] Comment on above: Performed By: #### L [id number] ####[facility] ([facility])[address] [place] [address] Chloride [Moles/Vol] 98 mmol/L Normal 98-107 [facility] Comment on above: Performed By: #### L [id number] ####[facility] ([facility])[address] [place] [address] CO2 [Moles/Vol] 27 mmol/L Normal 21-31 [facility] Comment on above: Performed By: #### L [id number] ####[facility] ([facility])[address] [place] [address] Creatinine [Mass/Vol] 0.41 mg/dL Low 0.70-1.30 [facility] Comment on above: Performed By: #### L [id number] ####[facility] ([facility])[address] [place] [address] GLOMERULAR FILTRATION RATE ML/MIN/1.73 SQ M.PREDICTED 112.2 mL/min/1.73m*2 Normal >60.0 [facility] Comment on above: Result Comment: [facility]???s estimated glomerular filtration rate (eGFR) [...] of individuals. Performed By: #### L [id number] ####[facility] ([facility])[address] [place] [address] Glucose [Mass/Vol] 102 mg/dL High 70-100 [facility] Comment on above: Performed By: #### L [id number] ####[facility] ([facility])[address] [place] [address] Potassium [Moles/Vol] 3.3 mmol/L Low 3.5-5.1 [facility] Comment on above: Performed By: #### L [id number] ####[facility] [facility] [address] Sodium [Moles/Vol] 130 mmol/L Low 136-145 [facility] Comment on above: Performed By: #### L [id number] ####[facility] ([facility])[address], [place] [address] Urea nitrogen [Mass/Vol] 12 mg/dL Normal 7-25 [facility] Comment on above: Performed By: #### L [id number] ####[facility] ([facility])[address], [place] [address] UREA NITROGEN/CREATININE (MASS RATIO) IN SER/PLAS 29.3 Normal [facility] Comment on above: Performed By: #### L [id number] ####[facility] ([facility])[address] [address] CBCon 11-03-2023 Erythrocyte distribution width (RBC) [Ratio] 16.6 % High 11.5-15.0 [facility] Comment on above: Performed By: #### L [id number] ####[facility] ([facility])[address], [place] [address] ERYTHROCYTE MEAN CORPUSCULAR HEMOGLOBIN CONCENTRATION (G/DL) BY AUTOMATED 31.6 g/dL Low 32.0-35.0 [facility] Comment on above: Performed By: #### L [id number] ####[facility] ([facility])[address], [place] [address] Hematocrit (Bld) [Volume fraction] 27.2 % Low 39.0-55.0 [facility] Comment on above: Performed By: #### L [id number] ####[facility] ([facility])[address], [place] [address] Hemoglobin (Bld) [Mass/Vol] 8.6 g/dL Low 13.0-17.0 [facility] Comment on above: Performed By: #### L [id number] ####[facility] ([facility])[address] [place] [address] MCH (RBC) [Entitic mass] 26.5 pg Low 27.0-33.0 [facility] Comment on above: Performed By: #### L [id number] ####[facility] ([facility])[address] [place] [address] MCV (RBC) [Entitic vol] 83.7 fL Normal 82.0-98.0 [facility] Comment on above: Performed By: #### L [id number] ####[facility] ([facility])[address] [place] [address] PLATELETS (10*3/UL) IN BLOOD AUTOMATED COUNT 157 10*3/uL Normal 150-400 [facility] Comment on above: Performed By: #### L [id number] ####[facility] ([facility])[address] [place] [address] RBC (Bld) [#/Vol] 3.25 10*6/uL Low 4.20-5.[address] [facility] Comment on above: Performed By: #### L [id number] ####[facility] ([facility])[address] [place] [address] WBC (Bld) [#/Vol] 5.95 10*3/uL Normal 4.00-10.[address] [facility] Comment on above: Performed By: #### L [id number] ####[facility] ([facility])[address] [place] [address] CONSULTon 11-03-2023 CONSULT Normal [facility] DIGOXIN LEVELon 11-03-2023 DIGOXIN (NG/ML) IN SER/PLAS 0.5 ng/mL Low 0.7-2 [facility] Comment on above: Performed By: #### L [id number] ####[facility] ([facility])[address] [place] [address] FERRITINon 11-03-2023 FERRITIN (NG/ML) IN SER/PLAS 79.0 ng/mL Normal 24.0-336.0 [facility] Comment on above: Performed By: #### L [id number] ####[facility] ([facility])[address] [place] [address] FOLATEon 11-03-2023 FOLATE (NG/ML) IN SER/PLAS 11.28 ng/mL Normal 6.6-1000 [facility] Comment on above: Performed By: #### L [id number] ####[facility] ([facility])[address] [place] [address] IRON AND TIBCon 11-03-2023 IRON (UG/DL) IN SER/PLAS 12 ug/dL Low 50-212 [facility] Comment on above: Performed By: #### L [id number] ####[facility] ([facility])[address] [place] [address] IRON BINDING CAPACITY (UG/DL) IN SER/PLAS 277 ug/dL Normal 250-450 [facility] Comment on above: Performed By: #### L [id number] ####[facility] ([facility])[address] [place] [address] IRON BINDING CAPACITY.UNSATURATED (UG/DL) IN SER/PLAS 265.0 ug/dL Normal 155.0-355.0 [facility] Comment on above: Performed By: #### L [id number] ####[facility] ([facility])[address] [place] [address] IRON SATURATION (%) IN SER/PLAS 4 % Low 20-50 [facility] Comment on above: Performed By: #### L [id number] ####[facility] ([facility])[address] [place] [address] NURSNOTEon 11-03-2023 NURSNOTE Wet Process Miller asked night surgery/vascular MD if heparin gtt needs to be held at [address] Rubina PA-C said the heparin drip will be turned off 1 to 2 hours before the procedure due to heparin's short half-life. Normal [facility] NURSNOTE Normal [facility] OSMOLALITYon 11-03-2023 OSMOLALITY MEASURED 281 mOsm/kg Normal 275-295 [facility] Comment on above: Order Comment: Add o n Result Comment: Test Performed by [facility] [address] [place] [address] - Released 11/03/2023 17:29 Performed By: #### L [id number] ####[facility] [id number] [place] [address] POCT GLUCOSE METER UNSOLICIT ED RESULTSon 11-03-2023 Glucose [Mass/Vol] 147 mg/dL High 70-105 [facility] Comment on above: Order Comment: Waive d Testing in the ED is performed under the ED CLIA certificate #[id number]. Result Comment: [email or web address] Performed By: #### L [id number] ####[facility] ([facility])[address] [place] [address] Glucose [Mass/Vol] 201 mg/dL High 70-105 [facility] Comment on above: Order Comment: Waive d Testing in the ED is performed under the ED CLIA certificate #[id number]. Result Comment: [email or web address] Performed By: #### L [id number] ####[facility] ([facility])[address] [place] [address] Glucose [Mass/Vol] 243 mg/dL High 70-105 [facility] Comment on above: Order Comment: Waive d Testing in the ED is performed under the ED CLIA certificate #[id number]. Result Comment: [email or web address] Performed By: #### L [id number] ####[facility] ([facility])[address] [place] [address] Glucose [Mass/Vol] 118 mg/dL High 70-105 [facility] Comment on above: Order Comment: Waive d Testing in the ED is performed under the ED CLIA certificate #[id number]. Result Comment: [email or web address] Performed By: #### L [id number] ####[facility] ([facility])[address] [place] [address] VITAMIN B12on 11-03-2023 Cobalamin (Vitamin B12) [Mass/Vol] 1448 pg/mL High 180-914 [facility] Comment on above: Result Comment: REFLinda BARBER RANGES:180-914 pg/mL Qtuuvo849-308 pg/mL Indeterminate<145 pg/mL Deficient Performed By: #### L [id number] ####[facility] ([facility])[address] [place] [address] 36on 11-02-2023 36 Spoke with Sonia Dey and Ijeoma. Asking about maintaining the line. Asked for them to flush until his appt. states they are seeing vascular today and they hope he is admitted for an amputation. Normal [facility] 36 Spoke with [facility] stated for the pt to maintain his line and flush it until his upcoming appt 11/09 Normal [facility] CBC WITH AUTO DIFFERENTIALon 11-02-2023 Basophils (Bld) [#/Vol] 0.01 10*3/uL Normal 0.00-0.20 [facility] Comment on above: Performed By: #### L [id number] ####[facility] ([facility])[address] [place] [address] Basophils/100 WBC (Bld) 0.1 % Normal 0.0-1.0 [facility] Comment on above: Performed By: #### L [id number] ####[facility] ([facility])[address] [facility] [address] Eosinophils (Bld) [#/Vol] 0.01 10*3/uL Normal 0.00-0.50 [facility] Comment on above: Performed By: #### L [id number] ####[facility] ([facility])[address] [place] [place] [address] Eosinophils/100 WBC (Bld) 0.1 % Normal 0.0-6.0 [facility] Comment on above: Performed By: #### L [id number] ####[facility] ([facility])[address] [place] [address] Erythrocyte distribution width (RBC) [Ratio] 16.7 % High 11.5-15.0 [facility] Comment on above: Performed By: #### L [id number] ####[facility] ([facility])[address] [place] [address] ERYTHROCYTE MEAN CORPUSCULAR HEMOGLOBIN CONCENTRATION (G/DL) BY AUTOMATED 32.6 g/dL Normal 32.0-35.0 [facility] Comment on above: Performed By: #### L [id number] ####[facility] ([facility])[address] [place] [address] Hematocrit (Bld) [Volume fraction] 27.3 % Low 39.0-55.0 [facility] Comment on above: Performed By: #### L [id number] ####[facility] ([facility])[address] [place] [address] Hemoglobin (Bld) [Mass/Vol] 8.9 g/dL Low 13.0-17.0 [facility] Comment on above: Performed By: #### L [id number] ####[facility] ([facility])[address] [place] [address] Immature granulocytes (Bld) [#/Vol] 0.04 10*3/uL Normal 0.00-0.20 [facility] Comment on above: Performed By: #### L [id number] ####[facility] ([facility])[address] [place] [address] Immature granulocytes/100 WBC (Bld) 0.6 % Normal 0.0-1.0 [facility] Comment on above: Performed By: #### L [id number] ####[facility] ([facility])[address] [place] [address] Lymphocytes (Bld) [#/Vol] 0.32 10*3/uL Low 1.20-4.00 [facility] Comment on above: Performed By: #### L [id number] ####[facility] ([facility])[address] [place] [address] Lymphocytes/100 WBC (Bld) 4.6 % Low 20.0-45.0 [facility] Comment on above: Performed By: #### L [id number] ####[facility] ([facility])[address] [place] [address] MCH (RBC) [Entitic mass] 27.2 pg Normal 27.0-33.0 [facility] Comment on above: Performed By: #### L [id number] ####[facility] ([facility])[address] [place] [address] MCV (RBC) [Entitic vol] 83.5 fL Normal 82.0-98.0 [facility] Comment on above: Performed By: #### L [id number] ####[facility] ([facility])[address] [place] [address] Monocytes (Bld) [#/Vol] 0.96 10*3/uL Normal 0.10-1.00 [facility] Comment on above: Performed By: #### L [id number] ####[facility] ([facility])[address] [place] [address] Monocytes/100 WBC (Bld) 13.7 % High 5.0-12.0 [facility] Comment on above: Performed By: #### L [id number] ####[facility] ([facility])[address] [place] [address] Neutrophils (Bld) [#/Vol] 5.66 10*3/uL Normal 1.60-7.60 [facility] Comment on above: Performed By: #### L [id number] ####[facility] ([facility])[address] [place] [address] Neutrophils/100 WBC (Bld) 80.9 % High 40.0-72.0 [facility] Comment on above: Performed By: #### L [id number] ####[facility] ([facility])[address] [place] [address] NRBC (PER 100 WBCS) BY AUTOMATED COUNT 0.0 % Normal 0 [facility] Comment on above: Performed By: #### L [id number] ####[facility] ([facility])[address] [place] [address] PLATELETS (10*3/UL) IN BLOOD AUTOMATED COUNT 165 10*3/uL Normal 150-400 [facility] Comment on above: Performed By: #### L [id number] ####[facility] ([facility])[address] [place] [address] RBC (Bld) [#/Vol] 3.27 10*6/uL Low 4.20-5.[address] [facility] Comment on above: Performed By: #### L [id number] ####[facility] ([facility])[address] [place] [address] WBC (Bld) [#/Vol] 7.00 10*3/uL Normal 4.00-10.[address] [facility] Comment on above: Performed By: #### L [id number] ####[facility] ([facility])[address] [place] [address] COMPREHENSIVE METABOLIC PANE Sridhar 11-02-2023 Albumin [Mass/Vol] 3.1 g/dL Low 3.5-5.7 [facility] Comment on above: Performed By: #### L [id number] ####[facility] ([facility])[address] [place] [address] ALP [Catalytic activity/Vol] 159 U/L High 34-104 [facility] Comment on above: Performed By: #### L [id number] ####[facility] ([facility])[address] [place] [address] ALT [Catalytic activity/Vol] 157 U/L High 7-52 [facility] Comment on above: Performed By: #### L [id number] ####[facility] ([facility])[address] [place] [address] Anion gap [Moles/Vol] 8 mmol/L Normal 7-20 [facility] Comment on above: Performed By: #### L [id number] ####[facility] ([facility])[address] [place] [address] AST [Catalytic activity/Vol] 102 U/L High 13-39 [facility] Comment on above: Performed By: #### L [id number] ####[facility] ([facility])[address] [place] [address] Bilirubin [Mass/Vol] 0.5 mg/dL Normal 0.3-1.0 [facility] Comment on above: Performed By: #### L [id number] ####[facility] ([facility])[address] [place] [address] Calcium [Mass/Vol] 8.6 mg/dL Normal 8.6-10.3 [facility] Comment on above: Performed By: #### L [id number] ####[facility] ([facility])[address] [place] [address] Chloride [Moles/Vol] 93 mmol/L Low 98-107 [facility] Comment on above: Performed By: #### L [id number] ####[facility] ([facility])[address] [place] [address] CO2 [Moles/Vol] 30 mmol/L Normal 21-31 [facility] Comment on above: Performed By: #### L [id number] ####[facility] ([facility])[address] [place] [address] Creatinine [Mass/Vol] 0.49 mg/dL Low 0.70-1.30 [facility] Comment on above: Performed By: #### L [id number] ####[facility] ([facility])[address] [place] [address] GLOMERULAR FILTRATION RATE ML/MIN/1.73 SQ M.PREDICTED 106.4 mL/min/1.73m*2 Normal >60.0 [facility] Comment on above: Result Comment: [facility]???s estimated glomerular filtration rate (eGFR) [...] of individuals. Performed By: #### L [id number] ####[facility] ([facility])[address] [place] [address] Glucose [Mass/Vol] 128 mg/dL High 70-100 [facility] Comment on above: Performed By: #### L [id number] ####[facility] ([facility])[address] [place] [address] Potassium [Moles/Vol] 3.5 mmol/L Normal 3.5-5.1 [facility] Comment on above: Performed By: #### L [id number] ####[facility] ([facility])[address] [place] [address] Protein [Mass/Vol] 6.5 g/dL Normal 6.0-8.3 [facility] Comment on above: Performed By: #### L [id number] ####[facility] ([facility])[address] [place] [address] Sodium [Moles/Vol] 127 mmol/L Low 136-145 [facility] Comment on above: Performed By: #### L [id number] ####[facility] ([facility])[address] [place] [address] Urea nitrogen [Mass/Vol] 11 mg/dL Normal 7-25 [facility] Comment on above: Performed By: #### L [id number] ####[facility] ([facility])[address] [place] [address] UREA NITROGEN/CREATININE (MASS RATIO) IN SER/PLAS 22.4 [facility] Comment on above: Performed By: #### L [id number] ####[facility] ([facility])[address] [place] [address] Follow-Upon 11-02-2023 Follow-Up [facility] HPon 11-02-2023 HP Normal [facility] MAGNESIUMon 11-02-2023 Magnesium [Mass/Vol] 1.9 mg/dL Normal 1.9-2.7 [facility] Comment on above: Performed By: #### L [id number] ####[facility] ([facility])[address] [place] [address] PHOSPHORUSon 11-02-2023 Magnesium [Mass/Vol] 3.2 mg/dL Normal 2.5-5.0 [facility] Comment on above: Performed By: #### L [id number] ####[facility] ([facility])[address] [place] [address] POCT GLUCOSE METER UNSOLICIT ED RESULTSon 11-02-2023 Glucose [Mass/Vol] 112 mg/dL High 70-105 [facility] Comment on above: Order Comment: Waive d Testing in the ED is performed under the ED CLIA certificate #[id number]. Result Comment: renato aka Performed By: #### L [id number] ####[facility] ([facility])[address] [place] [address] Glucose [Mass/Vol] 159 mg/dL High 70-105 [facility] Comment on above: Order Comment: Waive d Testing in the ED is performed under the ED CLIA certificate #[id number]. Result Comment: herb [email or web address] Performed By: #### L [id number] ####[facility] ([facility])[address] [place] [address] 36on 11-01-2023 36 LM attempted to call patient no answer so left a message for patient to call us back we could see him today with javier at 1045/11 or tomorrow with chauncey at 130 Normal [facility] Outside Records Officeon Outside Records Office [phone] [id number] FF Normal [facility] Orders Onlyon 10-27-2023 Orders Only Normal [facility] BLOOD UREA NITROGENon 2023 Urea nitrogen [Mass/Vol] 15 mg/dL Normal 5-27 [facility] Comment on above: Performed By: #### C ROSEMARY, 3094-0, MANAGER AUTOMOTIVE, 4091- #### [facility] ([id number]) [address] [place] [address] CBC AND AUTO DIFFon 10-26-19 ABSOLUTE BASOPHIL 0.0 X10E9/L Normal 0.0-0.2 [facility] Comment on above: Performed By: #### C ROSEMARY, 3094-0, MANAGER AUTOMOTIVE, 4091-12 #### [facility] ([id number]) [address] [place] [address] ABSOLUTE NEUTROPHIL 4.3 X10E9/L Normal 1.5-6.6 [facility] Comment on above: Performed By: #### Sammy RILEY, 3094-0, MANAGER AUTOMOTIVE, 4091-12 #### [facility] ([id number]) [address] [place] [address] Basophils/100 WBC (Bld) 0.4 % Normal [facility] Comment on above: Performed By: #### Sammy RILEY, 3094-0, MANAGER AUTOMOTIVE, 4091-12 #### [facility] ([id number]) [address] [place] [address] Eosinophils (Bld) [#/Vol] 0.0 10*3/uL Normal 0.0-0.4 [facility] Comment on above: Performed By: #### C ROSEMARY, 3094-0, MANAGER AUTOMOTIVE, 4091- #### [facility] ([id number]) [address] [place] [address] Eosinophils/100 WBC (Bld) 0.6 % Normal [facility] Comment on above: Performed By: #### Sammy RILEY, 3094-0, MANAGER AUTOMOTIVE, 4091-12 #### [facility] ([id number]) [address] [place] [address] [place] [address] Erythrocyte distribution width (RBC) [Ratio] 18.5 % High 11.5-15.0 [facility] Comment on above: Performed By: #### Sammy RILEY, 3094-0, MANAGER AUTOMOTIVE, 4091-12 #### [facility] ([id number]) [address] [place] [address] Hematocrit (Bld) [Volume fraction] 28.0 % Low 39-49 [facility] Comment on above: Performed By: #### Sammy RILEY, 309-0, MANAGER AUTOMOTIVE, 4091-12 #### [facility] ([id number]) [address] [place] [address] Hemoglobin (Bld) [Mass/Vol] 9.1 g/dL Low 13.0-17.0 [facility] Comment on above: Performed By: #### Sammy RILEY, 3093-0, MANAGER AUTOMOTIVE, 4091-12 #### [facility] ([id number]) [address] [place] [address] Lymphocytes (Bld) [#/Vol] 0.3 10*3/uL Low 1.0-3.5 [facility] Comment on above: Performed By: #### Sammy RILEY, 3094-0, MANAGER AUTOMOTIVE, 4091-12 #### [facility] ([id number]) [address] [place] [address] Lymphocytes/100 WBC (Bld) 5.4 % Normal [facility] Comment on above: Performed By: #### Sammy RILEY, 3094-0, MANAGER AUTOMOTIVE, 4091-12 #### [facility] ([id number]) [address] [place] [address] MCH (RBC) [Entitic mass] 27.0 pg Normal 27-34 [facility] Comment on above: Performed By: #### Sammy RILEY, 3094-0, MANAGER AUTOMOTIVE, 4091-12 #### [facility] ([id number]) [address] [place] [address] MCHC (RBC) [Mass/Vol] 32.5 g/dL Normal 32-36 [facility] Comment on above: Performed By: #### Sammy RILEY, 3094-0, MANAGER AUTOMOTIVE, 4091-12 #### [facility] ([id number]) [address] [place] [address] MCV (RBC) [Entitic vol] 83 fL Normal 80-100 [facility] Comment on above: Performed By: #### Sammy RILEY, 3094-0, MANAGER AUTOMOTIVE, 4091-12 #### [facility] ([id number]) [address] [place] [address] Monocytes (Bld) [#/Vol] 0.7 10*3/uL Normal 0-0.9 [facility] Comment on above: Performed By: #### Sammy RILEY, 3094-0, MANAGER AUTOMOTIVE, 4091-12 #### [facility] ([id number]) [address] [place] [address] Monocytes/100 WBC (Bld) 12.6 % Normal [facility] Comment on above: Performed By: #### Sammy RILEY, 3094-0, MANAGER AUTOMOTIVE, 4091-12 #### [facility] ([id number]) [address] [place] [address] Neutrophils/100 WBC (Bld) 81.0 % Normal [facility] Comment on above: Performed By: #### Sammy RILEY, 3094-0, MANAGER AUTOMOTIVE, 4091-12 #### [facility] ([id number]) [address] [place] [address] Platelet mean volume (Bld) [Entitic vol] 8.2 fL Normal 7-12 [facility] Comment on above: Performed By: #### Sammy RILEY, 3094-0, MANAGER AUTOMOTIVE, 4091-12 #### [facility] ([id number]) [address] [place] [address] Platelets (Bld) [#/Vol] 197 10*3/uL Normal 150-450 [facility] Comment on above: Performed By: #### C ROSEMARY, 309-0, MANAGER AUTOMOTIVE, 4091-12 #### [facility] ([id number]) [address] [place] [address] RBC COUNT 3.37 X10E12/L Low 4.10-5.70 [facility] Comment on above: Performed By: #### C ROSEMARY, 309-0, MANAGER AUTOMOTIVE, 4091-12 #### [facility] ([id number]) [address] [place] [address] 46635 WBC (Bld) [#/Vol] 5.3 10*3/uL Normal 4.0-11.0 [facility] Comment on above: Performed By: #### C ROSEMARY, 0, MANAGER AUTOMOTIVE, 4091-12 #### [facility] ([id number]) [address] [place] [address] [id number] CREATININEon 10-26-2023 Creatinine [Mass/Vol] 0.35 mg/dL Low 0.70-1.20 [facility] Comment on above: Result Comment: METH OD TRACEABLE TO IDMS STANDARD Performed By: #### C ROSEMARY, 3093-0, MANAGER AUTOMOTIVE, 4091-12 #### [facility] ([id number]) [address] [place] [address] [id number] eGFR (CKD-EPI) NON-RACE DEPENDENT >90 Normal >59 [facility] Comment on above: Result Comment: Reported eGFR is based on the CKD-EPI 2020 equation that does not use a race coefficient. Performed By: #### C ROSEMARY, 3094-0, MANAGER AUTOMOTIVE, 3 #### [facility] ([id number]) [address] [place] [address] [id number] CRP [Mass/Vol]on 10-26-2023 C REACTIVE PROTEIN 4.9 mg/dL High 0.000-0.744 [facility] Comment on above: Performed By: #### C ROSEMARY, 3094-0, MANAGER AUTOMOTIVE, 4091-3 #### [facility] ([id number]) [address] [place] [address] 16310 Follow-Upon 10-26-2023 Follow-Up Normal [facility] Vancomycin trough [Mass/Vol] on 10-26-2023 VANCOMYCIN TROUGH 12.4 ug/mL Normal 5.0-20.0 [facility] Comment on above: Performed By: #### C ROSEMARY, 3094-0, MANAGER AUTOMOTIVE, 4091- #### [facility] ([id number]) [address] [place] [address] 44870 36on 10-20-2023 36 Labs in [facility] an d Verna is adding weekly CRP. Normal [facility] BLOOD UREA NITROGENon 2023 Urea nitrogen [Mass/Vol] 10 mg/dL Normal 5-27 [facility] Comment on above: Performed By: #### C ROSEMARY, 309-0, MANAGER AUTOMOTIVE, 4091-12 #### [facility] ([id number]) [address] [place] [address] 91040 CBC AND AUTO DIFFon 10-19-19 24 ABSOLUTE BASOPHIL 0.0 X10E9/L Normal 0.0-0.2 [facility] Comment on above: Performed By: #### C ROSEMARY, 309-0, MANAGER AUTOMOTIVE, 4091-12 #### [facility] ([id number]) [address] [place] [address] 85920 ABSOLUTE NEUTROPHIL 3.1 X10E9/L Normal 1.5-6.6 [facility] Comment on above: Performed By: #### Sammy RILEY, 3094-0, MANAGER AUTOMOTIVE, 4091-12 #### [facility] ([id number]) [address] [place] [address] 48735 Basophils/100 WBC (Bld) 0.4 % Normal [facility] Comment on above: Performed By: #### C ROSEMARY, 309-0, MANAGER AUTOMOTIVE, 4091-12 #### [facility] ([id number]) [address] [place] [address] 61042 Eosinophils (Bld) [#/Vol] 0.0 10*3/uL Normal 0.0-0.4 [facility] Comment on above: Performed By: #### Sammy RILEY, 3094-0, MANAGER AUTOMOTIVE, 4091-12 #### [facility] ([id number]) [address] [place] [address] 45162 Eosinophils/100 WBC (Bld) 0.8 % Normal [facility] Comment on above: Performed By: #### Sammy RILEY, 0, MANAGER AUTOMOTIVE, 4091-12 #### [facility] ([id number]) [address] [place] [address] 36591 Erythrocyte distribution width (RBC) [Ratio] 17.7 % High 11.5-15.0 [facility] Comment on above: Performed By: #### Sammy RILEY, 3093-0, MANAGER AUTOMOTIVE, 4091-12 #### [facility] ([id number]) [address] [place] [address] 79276 Hematocrit (Bld) [Volume fraction] 27.3 % Low 39-49 [facility] Comment on above: Performed By: #### Sammy RILEY, 309-0, MANAGER AUTOMOTIVE, 4091-12 #### [facility] ([id number]) [address] [place] [address] 50374 Hemoglobin (Bld) [Mass/Vol] 8.8 g/dL Low 13.0-17.0 [facility] Comment on above: Performed By: #### Sammy RILEY, 309-0, MANAGER AUTOMOTIVE, 4091-12 #### [facility] ([id number]) [address] [place] [address] 72424 Lymphocytes (Bld) [#/Vol] 0.2 10*3/uL Low 1.0-3.5 [facility] Comment on above: Performed By: #### C ROSEMARY, 309-0, MANAGER AUTOMOTIVE, 4091-12 #### [facility] ([id number]) [address] [place] [address] 78027 Lymphocytes/100 WBC (Bld) 6.2 % Normal [facility] Comment on above: Performed By: #### C ROSEMARY, 309-0, MANAGER AUTOMOTIVE, 4091-12 #### [facility] ([id number]) [address] [place] [address] 67539 MCH (RBC) [Entitic mass] 27.1 pg Normal 27-34 [facility] Comment on above: Performed By: #### Sammy RILEY, 0, MANAGER AUTOMOTIVE, 4091-12 #### [facility] ([id number]) [address] [place] [address] 73080 MCHC (RBC) [Mass/Vol] 32.2 g/dL Normal 32-36 [facility] Comment on above: Performed By: #### Sammy RILEY, 309-0, MANAGER AUTOMOTIVE, 4091-12 #### [facility] ([id number]) [address] [place] [address] 31689 MCV (RBC) [Entitic vol] 84 fL Normal 80-100 [facility] Comment on above: Performed By: #### Sammy RILEY, 309-0, MANAGER AUTOMOTIVE, 4091-12 #### [facility] ([id number]) [address] [place] [address] 21552 Monocytes (Bld) [#/Vol] 0.5 10*3/uL Normal 0-0.9 [facility] Comment on above: Performed By: #### Sammy RILEY, 309-0, MANAGER AUTOMOTIVE, 4091-12 #### [facility] ([id number]) [address] [place] [address] 73824 Monocytes/100 WBC (Bld) 11.9 % Normal [facility] Comment on above: Performed By: #### Sammy RILEY, 309-0, MANAGER AUTOMOTIVE, 4091-12 #### [facility] ([id number]) [address] [place] [address] 42658 Neutrophils/100 WBC (Bld) 80.7 % Normal [facility] Comment on above: Performed By: #### Sammy RILEY, 309-0, MANAGER AUTOMOTIVE, 4091-12 #### [facility] ([id number]) [address] [place] [address] 04229 Platelet mean volume (Bld) [Entitic vol] 9.2 fL Normal 7-12 [facility] Comment on above: Performed By: #### Sammy RILEY, 3093-0, MANAGER AUTOMOTIVE, 4091-12 #### [facility] ([id number]) [address] [place] [address] 22761 Platelets (Bld) [#/Vol] 109 10*3/uL Low 150-450 [facility] Comment on above: Performed By: #### Sammy RILEY, 309-0, MANAGER AUTOMOTIVE, 4091-12 #### [facility] ([id number]) [address] [place] [address] 24878 RBC COUNT 3.25 X10E12/L Low 4.10-5.70 [facility] Comment on above: Performed By: #### Sammy RILEY, 309-0, MANAGER AUTOMOTIVE, 4091-12 #### [facility] ([id number]) [address] [place] [address] 24607 WBC (Bld) [#/Vol] 3.8 10*3/uL Low 4.0-11.0 [facility] Comment on above: Performed By: #### Sammy RILEY, 309-0, MANAGER AUTOMOTIVE, 4091-12 #### [facility] ([id number]) [address] [place] [address] [place] [address] CREATININEon 10-19-2023 Creatinine [Mass/Vol] 0.40 mg/dL Low 0.70-1.20 [facility] Comment on above: Result Comment: METH OD TRACEABLE TO IDMS STANDARD Performed By: #### C BCA, 3094-0, MANAGER AUTOMOTIVE, 4092-3 #### [facility] ([id number]) [address] [place] [address] eGFR (CKD-EPI) NON-RACE DEPENDENT >90 Normal >59 [facility] Comment on above: Result Comment: Reported eGFR is based on the CKD-EPI 2020 equation that does not use a race coefficient. Performed By: #### C BCA, 3094-0, MANAGER AUTOMOTIVE, 4092-3 #### [facility] ([id number]) [address] [place] [address] Vancomycin trough [Mass/Vol] on 10-19-2023 VANCOMYCIN TROUGH 12.9 ug/mL Normal 5.0-20.0 [facility] Comment on above: Performed By: #### C BCA, 3094-0, MANAGER AUTOMOTIVE, 4092-3 #### [facility] ([id number]) [address] [place] [address] 24998 Follow-Upon 10-17-2023 Follow-Up [facility] 36on 10-13-2023 36 Yes, I agree with patient going to ER. He is currently at [facility] in [place]. Thanks!. [facility] 36 Spoke with pt yesterday lab called about a critical lab on Hemoglobin stated to have the pt go to the ER as soon as possible. 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 I called pt and spoke with his Ijeoma and stated pt needs to go to the ER alessandra. His stated they will go to [facility] in [facility] BLOOD UREA NITROGENon 2023 Urea nitrogen [Mass/Vol] 11 mg/dL Normal 5-27 [facility] Comment on above: Performed By: #### 3 094-0, MANAGER AUTOMOTIVE, 4091-3, CBCA #### [facility] ([id number]) [address] [place] [address] 43628 CBC AND AUTO DIFFon 10-12-19 ABSOLUTE BASOPHIL 0.0 X10E9/L Normal 0.0-0.2 [facility] Comment on above: Performed By: #### C BCA, 3094-0, MANAGER AUTOMOTIVE, 4091- #### [facility] ([id number]) [address] [place] [address] 42183 ABSOLUTE NEUTROPHIL 1.8 X10E9/L Normal 1.5-6.6 [facility] Comment on above: Performed By: #### C BCA, 3094-0, MANAGER AUTOMOTIVE, 4091-12 #### [facility] ([id number]) [address] [place] [address] 99056 Basophils/100 WBC (Bld) 0.6 % Normal [facility] Comment on above: Performed By: #### C BCA, 3094-0, MANAGER AUTOMOTIVE, 4091-12 #### [facility] ([id number]) [address] [place] [address] 91400 Eosinophils (Bld) [#/Vol] 0.0 10*3/uL Normal 0.0-0.4 [facility] Comment on above: Performed By: #### C BCA, 3094-0, MANAGER AUTOMOTIVE, 4091- #### [facility] ([id number]) [address] [place] [address] 97834 Eosinophils/100 WBC (Bld) 0.4 % Normal [facility] Comment on above: Performed By: #### C BCA, 3094-0, MANAGER AUTOMOTIVE, 4091-12 #### [facility] ([id number]) [address] [place] [address] 13794 Erythrocyte distribution width (RBC) [Ratio] 18.0 % High 11.5-15.0 [facility] Comment on above: Performed By: #### Sammy RILEY, 3094-0, MANAGER AUTOMOTIVE, 4091-12 #### [facility] ([id number]) [address] [place] [address] 45160 Hematocrit (Bld) [Volume fraction] 19.0 % Low 39-49 [facility] Comment on above: Performed By: #### Sammy RILEY, 3094-0, MANAGER AUTOMOTIVE, 4091-12 #### [facility] ([id number]) [address] [place] [address] 29370 Hemoglobin (Bld) [Mass/Vol] 6.1 g/dL Critically low 13.0-17.0 [facility] Comment on above: Performed By: #### Sammy RILEY, 3094-0, MANAGER AUTOMOTIVE, 4091-12 #### [facility] ([id number]) [address] [place] [address] 16298 Lymphocytes (Bld) [#/Vol] 0.1 10*3/uL Low 1.0-3.5 [facility] Comment on above: Performed By: #### Sammy RILEY, 3094-0, MANAGER AUTOMOTIVE, 4091-12 #### [facility] ([id number]) [address] [place] [address] 96694 Lymphocytes/100 WBC (Bld) 5.9 % Normal [facility] Comment on above: Performed By: #### Sammy RILEY, 3094-0, MANAGER AUTOMOTIVE, 4091-12 #### [facility] ([id number]) [address] [place] [address] 65368 MCH (RBC) [Entitic mass] 26.8 pg Low 27-34 [facility] Comment on above: Performed By: #### Sammy RILEY, 3094-0, MANAGER AUTOMOTIVE, 4091-12 #### [facility] ([id number]) [address] [place] [address] 55630 MCHC (RBC) [Mass/Vol] 32.1 g/dL Normal 32-36 [facility] Comment on above: Performed By: #### Sammy RILEY, 3094-0, MANAGER AUTOMOTIVE, 4091-3 #### [facility] ([id number]) [address] [place] [address] 75014 MCV (RBC) [Entitic vol] 83 fL Normal 80-100 [facility] Comment on above: Performed By: #### Sammy RILEY, 3094-0, MANAGER AUTOMOTIVE, 4091-12 #### [facility] ([id number]) [address] [place] [address] 56948 Monocytes (Bld) [#/Vol] 0.4 10*3/uL Normal 0-0.9 [facility] Comment on above: Performed By: #### Sammy RILEY, 3094-0, MANAGER AUTOMOTIVE, 4091-12 #### [facility] ([id number]) [address] [place] [address] 50958 Monocytes/100 WBC (Bld) 15.7 % Normal [facility] Comment on above: Performed By: #### Sammy RILEY, 3094-0, MANAGER AUTOMOTIVE, 4091-12 #### [facility] ([id number]) [address] [place] [address] 34375 Neutrophils/100 WBC (Bld) 77.4 % Normal [facility] Comment on above: Performed By: #### Sammy RILEY, 3094-0, MANAGER AUTOMOTIVE, 4091-12 #### [facility] ([id number]) [address] [place] [address] 93515 Platelet mean volume (Bld) [Entitic vol] 9.0 fL Normal 7-12 [facility] Comment on above: Performed By: #### Sammy RILEY, 3094-0, MANAGER AUTOMOTIVE, 4091- #### [facility] ([id number]) [address] [place] [address] 17333 Platelets (Bld) [#/Vol] 94 10*3/uL Low 150-[address] [facility] Comment on above: Performed By: #### Sammy RILEY, 3094-0, MANAGER AUTOMOTIVE, 4091- #### [facility] ([id number]) [address] [place] [address] 10124 RBC COUNT 2.29 X10E12/L Low 4.10-5.70 [facility] Comment on above: Performed By: #### Sammy RILEY, 3094-0, MANAGER AUTOMOTIVE, 4091-12 #### [facility] ([id number]) [address] [place] [address] 79157 WBC (Bld) [#/Vol] 2.4 10*3/uL Low 4.0-11.0 [facility] Comment on above: Performed By: #### Sammy RILEY, 3094-0, MANAGER AUTOMOTIVE, 4091-12 #### [facility] ([id number]) [address] [place] [address] 29903 Eosinophils/100 WBC (Bld) 0.9 % Normal [facility] Comment on above: Performed By: #### Sammy RILEY, 3094-0, MANAGER AUTOMOTIVE, 4091-12 #### [facility] ([id number]) [address] [place] [address] 91890 Erythrocyte distribution width (RBC) [Ratio] 17.6 % High 11.5-15.0 [facility] Comment on above: Performed By: #### Sammy RILEY, 3094-0, MANAGER AUTOMOTIVE, 4091-12 #### [facility] ([id number]) [address] [place] [address] 11921 Hematocrit (Bld) [Volume fraction] 19.5 % Low 39-49 [facility] Comment on above: Performed By: #### Sammy RILEY, 3094-0, MANAGER AUTOMOTIVE, 4091-12 #### [facility] ([id number]) [address] [place] [address] 86838 Hemoglobin (Bld) [Mass/Vol] 6.3 g/dL Critically low 13.0-17.0 [facility] Comment on above: Performed By: #### Sammy RILEY, 3094-0, MANAGER AUTOMOTIVE, 4091-12 #### [facility] ([id number]) [address] [place] [address] 31201 Lymphocytes/100 WBC (Bld) 3.8 % Normal [facility] Comment on above: Performed By: #### Sammy RILEY, 3094-0, MANAGER AUTOMOTIVE, 4091-12 #### [facility] ([id number]) [address] [place] [address] 06495 MCH (RBC) [Entitic mass] 26.6 pg Low 27-34 [facility] Comment on above: Performed By: #### Sammy RILEY, 3094-0, MANAGER AUTOMOTIVE, 4091-12 #### [facility] ([id number]) [address] [place] [address] 17364 Monocytes (Bld) [#/Vol] 0.2 10*3/uL Normal 0-0.9 [facility] Comment on above: Performed By: #### Sammy RILEY, 3094-0, MANAGER AUTOMOTIVE, 4091-12 #### [facility] ([id number]) [address] [place] [address] 36185 Monocytes/100 WBC (Bld) 10.4 % Normal [facility] Comment on above: Performed By: #### Sammy RILEY, 3094-0, MANAGER AUTOMOTIVE, 4091-12 #### [facility] ([id number]) [address] [place] [address] 69288 Neutrophils (Bld) [#/Vol] 1.7 10*3/uL Normal 1.5-6.6 [facility] Comment on above: Performed By: #### Sammy RILEY, 3094-0, MANAGER AUTOMOTIVE, 4091-12 #### [facility] ([id number]) [address] [place] [address] 32512 OVALOCYTE 2+ Abnormal NONE [facility] Comment on above: Performed By: #### C ROSEMARY, 3094-0, MANAGER AUTOMOTIVE, 4091- #### [facility] ([id number]) [address] [place] [address] 40015 Platelet mean volume (Bld) [Entitic vol] 8.8 fL Normal 7-12 [facility] Comment on above: Performed By: #### C ROSEMARY, 3094-0, MANAGER AUTOMOTIVE, 4091- #### [facility] ([id number]) [address] [place] [address] 77511 Platelets (Bld) [#/Vol] 87 10*3/uL Low 150-[address] [facility] Comment on above: Performed By: #### Sammy RILEY, 3094-0, MANAGER AUTOMOTIVE, 4091-12 #### [facility] ([id number]) [address] [place] [address] 21734 RBC COUNT 2.35 X10E12/L Low 4.10-5.70 [facility] Comment on above: Performed By: #### Sammy RILEY, 3094-0, MANAGER AUTOMOTIVE, 4091-12 #### [facility] ([id number]) [address] [place] [address] 69061 SEG NEUTROPHIL 84.9 % Normal [facility] Comment on above: Performed By: #### Sammy RILEY, 3094-0, MANAGER AUTOMOTIVE, 4091- #### [facility] ([id number]) [address] [place] [address] 95645 TEARDROP 1+ Abnormal NONE [facility] Comment on above: Performed By: #### Sammy RILEY, 3094-0, MANAGER AUTOMOTIVE, 4091- #### [facility] ([id number]) [address] [place] [address] 87423 WBC (Bld) [#/Vol] 2.0 10*3/uL Low 4.0-11.0 [facility] Comment on above: Performed By: #### C BCA, 3094-0, MANAGER AUTOMOTIVE, 4091-3 #### [facility] ([id number]) [address] [place] [address] 63181 COMPREHENSIVE METABOLIC PANE Sridhar 10-12-2023 Albumin [Mass/Vol] 2.6 g/dL Low 3.2-5.3 [facility] Comment on above: Performed By: #### C BCA, 3094-0, MANAGER AUTOMOTIVE, 3 #### [facility] ([id number]) [address] [place] [address] 40424 ALP [Catalytic activity/Vol] 88 U/L Normal 39-130 [facility] Comment on above: Performed By: #### C BCA, 3094-0, MANAGER AUTOMOTIVE, 4091-12 #### [facility] ([id number]) [address] [place] [address] 55534 ALT [Catalytic activity/Vol] 45 U/L High 0-40 [facility] Comment on above: Performed By: #### C BCA, 3094-0, MANAGER AUTOMOTIVE, 4091-12 #### [facility] ([id number]) [address] [place] [address] 31001 Anion gap [Moles/Vol] 6 mmol/L Normal 5-15 [facility] Comment on above: Performed By: #### C BCA, 3094-0, MANAGER AUTOMOTIVE, 4091- #### [facility] ([id number]) [address] [place] [address] 76074 AST [Catalytic activity/Vol] 54 U/L High 0-41 [facility] Comment on above: Performed By: #### C BCA, 3094-0, MANAGER AUTOMOTIVE, 4091-3 #### [facility] ([id number]) [address] [place] [address] 83677 Bilirubin [Mass/Vol] 0.5 mg/dL Normal 0.3-1.2 [facility] Comment on above: Performed By: #### C BCA, 3094-0, MANAGER AUTOMOTIVE, 4091-3 #### [facility] ([id number]) [address] [place] [address] 75259 Calcium [Mass/Vol] 7.7 mg/dL Low 8.5-10.5 [facility] Comment on above: Performed By: #### C BCA, 3094-0, MANAGER AUTOMOTIVE, 4091-3 #### [facility] ([id number]) [address] [place] [address] 88992 Chloride [Moles/Vol] 100 mmol/L Normal 98-109 [facility] Comment on above: Performed By: #### C BCA, 3094-0, MANAGER AUTOMOTIVE, 4091-3 #### [facility] ([id number]) [address] [place] [address] 37491 CO2 [Moles/Vol] 25 mmol/L Normal 22-32 [facility] Comment on above: Performed By: #### C BCA, 3094-0, MANAGER AUTOMOTIVE, 4091-3 #### [facility] ([id number]) [address] [place] [address] 08394 Creatinine [Mass/Vol] 0.39 mg/dL Low 0.70-1.20 [facility] Comment on above: Result Comment: METH OD TRACEABLE TO IDMS STANDARD Performed By: #### C BCA, 3094-0, MANAGER AUTOMOTIVE, 4091-3 #### [facility] ([id number]) [address] [place] [address] 21679 eGFR (CKD-EPI) NON-RACE DEPENDENT >90 Normal >59 [facility] Comment on above: Result Comment: Reported eGFR is based on the CKD-EPI 2020 equation that does not use a race coefficient. Performed By: #### C BCA, 3094-0, MANAGER AUTOMOTIVE, 3 #### [facility] ([id number]) [address] [place] [address] 01116 Performed By: #### 3 094-0, MANAGER AUTOMOTIVE, 4091-3, CBCA #### [facility] ([id number]) [address] [place] [address] 76191 Glucose [Mass/Vol] 142 mg/dL High 65-99 [facility] Comment on above: Performed By: #### C BCA, 3094-0, MANAGER AUTOMOTIVE, 4091-12 #### [facility] ([id number]) [address] [place] [address] 82578 Potassium [Moles/Vol] 3.5 mmol/L Normal 3.5-5.0 [facility] Comment on above: Performed By: #### C BCA, 3094-0, MANAGER AUTOMOTIVE, 4091-12 #### [facility] ([id number]) [address] [place] [address] 76747 Protein [Mass/Vol] 6.1 g/dL Normal 6.0-8.0 [facility] Comment on above: Performed By: #### C BCA, 3094-0, MANAGER AUTOMOTIVE, 4091-12 #### [facility] ([id number]) [address] [place] [address] 66257 Sodium [Moles/Vol] 131 mmol/L Low 134-146 [facility] Comment on above: Performed By: #### C BCA, 3094-0, MANAGER AUTOMOTIVE, 4091-12 #### [facility] ([id number]) [address] [place] [address] 88029 Urea nitrogen [Mass/Vol] 12 mg/dL Normal 5-27 [facility] Comment on above: Performed By: #### C BCA, 3094-0, MANAGER AUTOMOTIVE, 4091-3 #### [facility] ([id number]) [address] [place] [address] 76272 CREATININEon 10-12-2023 Creatinine [Mass/Vol] 0.47 mg/dL Low 0.70-1.20 [facility] Comment on above: Result Comment: METH OD TRACEABLE TO IDMS STANDARD Performed By: #### 3 094-0, MANAGER AUTOMOTIVE, 4091-3, CBCA #### [facility] ([id number]) [address] [place] [address] 32494 HEMOGLOBINon 10-12-2023 Hemoglobin (Bld) [Mass/Vol] 8.9 g/dL Low 13.0-17.0 [facility] Comment on above: Performed By: #### C ROSEMARY, 3094-0, MANAGER AUTOMOTIVE, 4091-12 #### [facility] ([id number]) [address] [place] [address] 06612 Hematocrit Auto (Bld) [Volum e fraction]on 10-12-2023 Hematocrit (Bld) [Volume fraction] 27.0 % Low 39-49 [facility] Comment on above: Performed By: #### C ROSEMARY, 3094-0, MANAGER AUTOMOTIVE, 4091-12 #### [facility] ([id number]) [address] [place] [address] 60450 Vancomycin trough [Mass/Vol] on 10-12-2023 VANCOMYCIN TROUGH 11.1 ug/mL Normal 5.0-20.0 [facility] Comment on above: Performed By: #### C ROSEMARY, 3094-0, MANAGER AUTOMOTIVE, 4091-12 #### [facility] ([id number]) [address] [place] [address] 26139 BLOOD UREA NITROGENon 2022 Urea nitrogen [Mass/Vol] 11 mg/dL Normal 5-27 [facility] Comment on above: Performed By: #### 3 094-0, MANAGER AUTOMOTIVE, 4091-, CBCA #### [facility] ([id number]) [address] [place] [address] 98417 CBC AND AUTO DIFFon 10-05-20 ABSOLUTE BASOPHIL 0.0 X10E9/L Normal 0.0-0.2 [facility] Comment on above: Performed By: #### 3 094-0, MANAGER AUTOMOTIVE, 4091-12, CBCA #### [facility] ([id number]) [address] [place] [address] 68835 ABSOLUTE NEUTROPHIL 1.5 X10E9/L Normal 1.5-6.6 [facility] Comment on above: Performed By: #### 3 094-0, MANAGER AUTOMOTIVE, 4091-12, CBCA #### [facility] ([id number]) [address] [place] [address] 17139 Basophils/100 WBC (Bld) 1.5 % Normal [facility] Comment on above: Performed By: #### 3 094-0, MANAGER AUTOMOTIVE, 4091-12, CBCA #### [facility] ([id number]) [address] [place] [address] 78760 Eosinophils (Bld) [#/Vol] 0.0 10*3/uL Normal 0.0-0.4 [facility] Comment on above: Performed By: #### 3 094-0, MANAGER AUTOMOTIVE, 4091-12, CBCA #### [facility] ([id number]) [address] [place] [address] 40138 Eosinophils/100 WBC (Bld) 1.7 % Normal [facility] Comment on above: Performed By: #### 3 094-0, MANAGER AUTOMOTIVE, 4091-12, CBCA #### [facility] ([id number]) [address] [place] [address] 31879 Erythrocyte distribution width (RBC) [Ratio] 18.5 % High 11.5-15.0 [facility] Comment on above: Performed By: #### 3 094-0, MANAGER AUTOMOTIVE, 4091-12, CBCA #### [facility] ([id number]) [address] [place] [address] 37925 Hematocrit (Bld) [Volume fraction] 20.9 % Low 39-49 [facility] Comment on above: Performed By: #### 3 094-0, MANAGER AUTOMOTIVE, 4091-12, CBCA #### [facility] ([id number]) [address] [place] [address] 68295 Hemoglobin (Bld) [Mass/Vol] 6.7 g/dL Critically low 13.0-17.0 [facility] Comment on above: Performed By: #### 3 094-0, MANAGER AUTOMOTIVE, 4091-12, CBCA #### [facility] ([id number]) [address] [place] [address] 41528 Lymphocytes (Bld) [#/Vol] 0.2 10*3/uL Low 1.0-3.5 [facility] Comment on above: Performed By: #### 3 094-0, MANAGER AUTOMOTIVE, 4091-12, CBCA #### [facility] ([id number]) [address] [place] [address] 79076 Lymphocytes/100 WBC (Bld) 9.7 % Normal [facility] Comment on above: Performed By: #### 3 094-0, MANAGER AUTOMOTIVE, 4091-12, CBCA #### [facility] ([id number]) [address] [place] [address] 93254 MCH (RBC) [Entitic mass] 27.6 pg Normal 27-34 [facility] Comment on above: Performed By: #### 3 094-0, MANAGER AUTOMOTIVE, 4091-12, CBCA #### [facility] ([id number]) [address] [place] [address] 66536 MCHC (RBC) [Mass/Vol] 32.2 g/dL Normal 32-36 [facility] Comment on above: Performed By: #### 3 094-0, MANAGER AUTOMOTIVE, 4091-12, CBCA #### [facility] ([id number]) [address] [place] [address] 42709 MCV (RBC) [Entitic vol] 86 fL Normal 80-100 [facility] Comment on above: Performed By: #### 3 094-0, MANAGER AUTOMOTIVE, 4091-3, CBCA #### [facility] ([id number]) [address] [place] [address] 26375 Monocytes (Bld) [#/Vol] 0.3 10*3/uL Normal 0-0.9 [facility] Comment on above: Performed By: #### 3 094-0, MANAGER AUTOMOTIVE, 4091-12, CBCA #### [facility] ([id number]) [address] [place] [address] 65155 Monocytes/100 WBC (Bld) 16.0 % Normal [facility] Comment on above: Performed By: #### 3 094-0, MANAGER AUTOMOTIVE, 4091-12, CBCA #### [facility] ([id number]) [address] [place] [address] 52948 Neutrophils/100 WBC (Bld) 71.1 % Normal [facility] Comment on above: Performed By: #### 3 094-0, MANAGER AUTOMOTIVE, 4091-12, CBCA #### [facility] ([id number]) [address] [place] [address] 38805 Platelet mean volume (Bld) [Entitic vol] 9.4 fL Normal 7-12 [facility] Comment on above: Performed By: #### 3 094-0, MANAGER AUTOMOTIVE, 4091-, CBCA #### [facility] ([id number]) [address] [place] [address] 50429 Platelets (Bld) [#/Vol] 101 10*3/uL Low 150-450 [facility] Comment on above: Performed By: #### 3 094-0, MANAGER AUTOMOTIVE, 4092-3, CBCA #### [facility] ([id number]) [address] [place] [address] 71779 RBC COUNT 2.43 X10E12/L Low 4.10-5.70 [facility] Comment on above: Performed By: #### 3 094-0, MANAGER AUTOMOTIVE, 4092-3, CBCA #### [facility] ([id number]) [address] [place] [address] 51634 WBC (Bld) [#/Vol] 2.1 10*3/uL Low 4.0-11.0 [facility] Comment on above: Performed By: #### 3 094-0, MANAGER AUTOMOTIVE, 4091-3, CBCA #### [facility] ([id number]) [address] [place] [address] 48985 CREATININEon 10-05-2023 Creatinine [Mass/Vol] 0.42 mg/dL Low 0.70-1.20 [facility] Comment on above: Result Comment: METH OD TRACEABLE TO IDMS STANDARD Performed By: #### 3 094-0, MANAGER AUTOMOTIVE, 4091-3, CBCA #### [facility] ([id number]) [address] [place] [address] 96929 eGFR (CKD-EPI) NON-RACE DEPENDENT >90 Normal >59 [facility] Comment on above: Result Comment: Reported eGFR is based on the CKD-EPI 2020 equation that does not use a race coefficient. Performed By: #### 3 094-0, MANAGER AUTOMOTIVE, 409-3, CBCA #### [facility] ([id number]) [address] [place] [address] 58233 Follow-Upon 10-05-2023 Follow-Up Normal [facility] Telephoneon 10-05-2023 Telephone Normal [facility] Vancomycin trough [Mass/Vol] on 10-05-2023 VANCOMYCIN TROUGH 14.7 ug/mL Normal 5.0-20.0 [facility] Comment on above: Performed By: #### 3 094-0, MANAGER AUTOMOTIVE, 4091-3, CBCA #### [facility] ([id number]) [address] [place] [address] 52467 36on 09-30-2023 36 No Opat received. Clare bs faxed to us showing stable results. Normal [facility] BLOOD UREA NITROGENon 2022 Urea nitrogen [Mass/Vol] 12 mg/dL Normal 5-27 [facility] Comment on above: Performed By: #### C BCA, 3094-0, MANAGER AUTOMOTIVE, 4091-3 #### [facility] ([id number]) [address] [place] [address] 52185 CBC AND AUTO DIFFon 09-28-20 23 ABSOLUTE BASOPHIL 0.0 X10E9/L Normal 0.0-0.2 [facility] Comment on above: Performed By: #### C BCA, 3094-0, MANAGER AUTOMOTIVE, 4091-12 #### [facility] ([id number]) [address] [place] [address] 65894 ABSOLUTE NEUTROPHIL 4.7 X10E9/L Normal 1.5-6.6 [facility] Comment on above: Performed By: #### C BCA, 3094-0, MANAGER AUTOMOTIVE, 4091-12 #### [facility] ([id number]) [address] [place] [address] 83642 Basophils/100 WBC (Bld) 0.6 % Normal [facility] Comment on above: Performed By: #### C BCA, 3094-0, MANAGER AUTOMOTIVE, 4091- #### [facility] ([id number]) [address] [place] [address] 53030 Eosinophils (Bld) [#/Vol] 0.0 10*3/uL Normal 0.0-0.4 [facility] Comment on above: Performed By: #### C BCA, 3094-0, MANAGER AUTOMOTIVE, 4091- #### [facility] ([id number]) [address] [place] [address] 61810 Eosinophils/100 WBC (Bld) 0.6 % Normal [facility] Comment on above: Performed By: #### Sammy RILEY, 3094-0, MANAGER AUTOMOTIVE, 4091-12 #### [facility] ([id number]) [address] [place] [address] 63380 Erythrocyte distribution width (RBC) [Ratio] 18.5 % High 11.5-15.0 [facility] Comment on above: Performed By: #### Sammy RILEY, 309-0, MANAGER AUTOMOTIVE, 4091-12 #### [facility] ([id number]) [address] [place] [address] 76908 Hematocrit (Bld) [Volume fraction] 23.7 % Low 39-49 [facility] Comment on above: Performed By: #### Sammy RILEY, 309-0, MANAGER AUTOMOTIVE, 4091-12 #### [facility] ([id number]) [address] [place] [address] 11296 Hemoglobin (Bld) [Mass/Vol] 7.8 g/dL Low 13.0-17.0 [facility] Comment on above: Performed By: #### Sammy RILEY, 309-0, MANAGER AUTOMOTIVE, 4091-12 #### [facility] ([id number]) [address] [place] [address] 88776 Lymphocytes (Bld) [#/Vol] 0.5 10*3/uL Low 1.0-3.5 [facility] Comment on above: Performed By: #### Sammy RILEY, 3094-0, MANAGER AUTOMOTIVE, 4091-12 #### [facility] ([id number]) [address] [place] [address] 79097 Lymphocytes/100 WBC (Bld) 8.5 % Normal [facility] Comment on above: Performed By: #### Sammy RILEY, 3094-0, MANAGER AUTOMOTIVE, 4091-12 #### [facility] ([id number]) [address] [place] [address] 77875 MCH (RBC) [Entitic mass] 27.9 pg Normal 27-34 [facility] Comment on above: Performed By: #### Sammy RILEY, 3094-0, MANAGER AUTOMOTIVE, 4091- #### [facility] ([id number]) [address] [place] [address] 00122 MCHC (RBC) [Mass/Vol] 32.9 g/dL Normal 32-36 [facility] Comment on above: Performed By: #### Sammy RILEY, 3094-0, MANAGER AUTOMOTIVE, 4091-12 #### [facility] ([id number]) [address] [place] [address] 93630 MCV (RBC) [Entitic vol] 85 fL Normal 80-100 [facility] Comment on above: Performed By: #### Sammy RILEY, 3094-0, MANAGER AUTOMOTIVE, 4091-12 #### [facility] ([id number]) [address] [place] [address] 09447 Monocytes (Bld) [#/Vol] 0.5 10*3/uL Normal 0-0.9 [facility] Comment on above: Performed By: #### Sammy RILEY, 3094-0, MANAGER AUTOMOTIVE, 4091-12 #### [facility] ([id number]) [address] [place] [address] 07487 Monocytes/100 WBC (Bld) 9.2 % Normal [facility] Comment on above: Performed By: #### Sammy RILEY, 3094-0, MANAGER AUTOMOTIVE, 4091-12 #### [facility] ([id number]) [address] [place] [address] 23098 Neutrophils/100 WBC (Bld) 81.1 % Normal [facility] Comment on above: Performed By: #### Sammy RILEY, 3094-0, MANAGER AUTOMOTIVE, 4091-12 #### [facility] ([id number]) [address] [place] [address] 46900 Platelet mean volume (Bld) [Entitic vol] 8.8 fL Normal 7-12 [facility] Comment on above: Performed By: #### C ROSEMARY, 3094-0, MANAGER AUTOMOTIVE, 4091-3 #### [facility] ([id number]) [address] [place] [address] 63091 Platelets (Bld) [#/Vol] 101 10*3/uL Low 150-450 [facility] Comment on above: Performed By: #### Sammy RILEY, 3094-0, MANAGER AUTOMOTIVE, 4091-12 #### [facility] ([id number]) [address] [place] [address] 21873 RBC COUNT 2.80 X10E12/L Low 4.10-5.70 [facility] Comment on above: Performed By: #### Sammy RILEY, 309-0, MANAGER AUTOMOTIVE, 4091-12 #### [facility] ([id number]) [address] [place] [address] 69708 WBC (Bld) [#/Vol] 5.8 10*3/uL Normal 4.0-11.0 [facility] Comment on above: Performed By: #### Sammy RILEY, 309-0, MANAGER AUTOMOTIVE, 3 #### [facility] ([id number]) [address] [place] [address] 32372 CREATININEon 09-28-2023 Creatinine [Mass/Vol] 0.46 mg/dL Low 0.70-1.20 [facility] Comment on above: Result Comment: METH OD TRACEABLE TO IDMS STANDARD Performed By: #### Sammy RILEY, 3094-0, MANAGER AUTOMOTIVE, 4091-12 #### [facility] ([id number]) [address] [place] [address] 84075 eGFR (CKD-EPI) NON-RACE DEPENDENT >90 Normal >59 [facility] Comment on above: Result Comment: Reported eGFR is based on the CKD-EPI 2020 equation that does not use a race coefficient. Performed By: #### C BCA, 3094-0, MANAGER AUTOMOTIVE, 4092-3 #### [facility] ([id number]) [address] [place] [address] Vancomycin trough [Mass/Vol] on 09-28-2023 VANCOMYCIN TROUGH 12.3 ug/mL Normal 5.0-20.0 [facility] Comment on above: Performed By: #### C BCA, 3094-0, MANAGER AUTOMOTIVE, 409-3 #### [facility] ([id number]) [address] [place] [address] 30on 09-26-2023 30 The patient is Moderately Stable - Low risk of patient condition declining or worsening The patient's goals for the shift include Comfort The clinical goals for the shift include VSS Normal [facility] 30 Normal [facility] ANTI-XA (HEPARIN LEVEL)on HEPARIN UNFRACTIONATED (U/ML) IN PPP BY CHROMOGENIC METHOD 0.18 IU/mL Low 0.3-0.7 [facility] Comment on above: Result Comment: [place] roxaban and Apixaban will interfere with the anti Xa assay used to monitor UFH and LMWH. Performed By: #### L [id number] ####[facility] (BEAKER)[address] [place] [address] BASIC METABOLIC PANELon 09-09 Anion gap [Moles/Vol] 8 mmol/L Normal 7-20 [facility] Comment on above: Performed By: #### L [id number] ####[facility] (BEAKER)[address] [place] [address] Calcium [Mass/Vol] 8.5 mg/dL Low 8.6-10.3 [facility] Comment on above: Performed By: #### L [id number] ####[facility] (BEAKER)[address] [place] [address] Chloride [Moles/Vol] 105 mmol/L Normal 98-107 [facility] Comment on above: Performed By: #### L [id number] ####[facility] ([facility])[address] [place] [address] CO2 [Moles/Vol] 26 mmol/L Normal 21-31 [facility] Comment on above: Performed By: #### L [id number] ####[facility] ([facility])[address] [place] [address] Creatinine [Mass/Vol] 0.40 mg/dL Low 0.70-1.30 [facility] Comment on above: Performed By: #### L [id number] ####[facility] ([facility])[address] [place] [address] GLOMERULAR FILTRATION RATE ML/MIN/1.73 SQ M.PREDICTED 113.1 mL/min/1.73m*2 Normal >60.0 [facility] Comment on above: Result Comment: [facility]???s estimated glomerular filtration rate (eGFR) [...] of individuals. Performed By: #### L [id number] ####[facility] ([facility])[address] [place] [address] Glucose [Mass/Vol] 92 mg/dL Normal 70-100 [facility] Comment on above: Performed By: #### L [id number] ####[facility] ([facility])[address] [place] [address] Potassium [Moles/Vol] 3.8 mmol/L Normal 3.5-5.1 [facility] Comment on above: Performed By: #### L [id number] ####[facility] ([facility])[address] [place] [address] Sodium [Moles/Vol] 135 mmol/L Low 136-145 [facility] Comment on above: Performed By: #### L [id number] ####[facility] ([facility])[address] [place] [address] Urea nitrogen [Mass/Vol] 14 mg/dL Normal 7-25 [facility] Comment on above: Performed By: #### L [id number] ####[facility] ([facility])[address] [place] [address] UREA NITROGEN/CREATININE (MASS RATIO) IN SER/PLAS 35.0 Normal [facility] Comment on above: Performed By: #### L [id number] ####[facility] ([facility])[address] [place] [address] CBC WITH AUTO DIFFERENTIALon 09-26-2023 Erythrocyte distribution width (RBC) [Ratio] 18.0 % High 11.5-15.0 [facility] Comment on above: Performed By: #### L [id number] ####[facility] ([facility])[address] [place] [address] ERYTHROCYTE MEAN CORPUSCULAR HEMOGLOBIN CONCENTRATION (G/DL) BY AUTOMATED 32.0 g/dL Normal 32.0-35.0 [facility] Comment on above: Performed By: #### L [id number] ####[facility] ([facility])[address] [place] [address] Hematocrit (Bld) [Volume fraction] 22.8 % Low 39.0-55.0 [facility] Comment on above: Performed By: #### L [id number] ####[facility] ([facility])[address] [place] [address] Hemoglobin (Bld) [Mass/Vol] 7.3 g/dL Low 13.0-17.0 [facility] Comment on above: Performed By: #### L [id number] ####[facility] ([facility]ER)[address] [place] [address] IMMATURE PLATELET FRACTION % 3.7 % Normal 0.8-6.3 [facility] Comment on above: Performed By: #### L [id number] ####[facility] ([facility])[address] [place] [address] MCH (RBC) [Entitic mass] 27.9 pg Normal 27.0-33.0 [facility] Comment on above: Performed By: #### L [id number] ####[facility] ([facility])[address] [place] [address] MCV (RBC) [Entitic vol] 87.0 fL Normal 82.0-98.0 [facility] Comment on above: Performed By: #### L [id number] ####[facility] ([facility])[address] [place], [place] [address] NRBC (PER 100 WBCS) BY AUTOMATED COUNT 0.0 % Normal 0 [facility] Comment on above: Performed By: #### L [id number] ####[facility] ([facility])[address] [place] [address] PLATELETS (10*3/UL) IN BLOOD AUTOMATED COUNT 75 10*3/uL Low 150-400 [facility] Comment on above: Result Comment: [facility] PV = 73 @ 09/25/23 Performed By: #### L [id number] ####[facility] ([facility]ER)[address] [place] [address] RBC (Bld) [#/Vol] 2.62 10*6/uL Low 4.20-5.[address] [facility] Comment on above: Performed By: #### L [id number] ####[facility] ([facility])[address] [place] [address] WBC (Bld) [#/Vol] 2.12 10*3/uL Low 4.00-10.[address] [facility] Comment on above: Performed By: #### L [id number] ####[facility] ([facility])[address] [place] [address] DSon 09-26-2023 DS Normal [facility] MAGNESIUMon 09-26-2023 Magnesium [Mass/Vol] 1.6 mg/dL Low 1.9-2.7 [facility] Comment on above: Performed By: #### L [id number] ####[facility] ([facility])[address] [place] [address] MANUAL DIFFERENTIALon 2022 BASOPHILS (10*3/UL) IN BLOOD BY CALCULATION 0.01 10*3/uL Normal 0.00-0.20 [facility] Comment on above: Performed By: #### L [id number] ####[facility] ([facility])[address] [place] [address] BASOPHILS/100 LEUKOCYTES IN BLOOD BY AUTOMATED COUNT 0.5 % Normal 0.0-1.0 [facility] Comment on above: Performed By: #### L [id number] ####[facility] ([facility])[address] [place] [address] EOSINOPHILS (10*3/UL) IN BLOOD BY CALCULATION 0.02 10*3/uL Normal 0.00-0.50 [facility] Comment on above: Performed By: #### L [id number] ####[facility] ([facility])[address] [place] [address] EOSINOPHILS/100 LEUKOCYTES IN BLOOD BY AUTOMATED COUNT 0.9 % Normal 0.0-6.0 [facility] Comment on above: Performed By: #### L [id number] ####[facility] ([facility])[address] [place] [address] IMMATURE GRANULOCYTES (10*3/UL) IN BLOOD BY CALCULATION 0.01 10*3/uL Normal 0.00-0.20 [facility] Comment on above: Performed By: #### L [id number] ####[facility] ([facility])[address] [place] [address] IMMATURE GRANULOCYTES/100 LEUKOCYTES IN BLOOD BY AUTOMATED COUNT 0.5 % Normal 0.0-1.0 [facility] Comment on above: Performed By: #### L [id number] ####[facility] ([facility])[address] [place] [address] LYMPHOCYTES (10*3/UL) IN BLOOD BY CALCULATION 0.36 10*3/uL Low 1.20-4.00 [facility] Comment on above: Performed By: #### L [id number] ####[facility] ([facility])[address] [place] [address] LYMPHOCYTES/100 LEUKOCYTES IN BLOOD BY AUTOMATED COUNT 17.0 % Low 20.0-45.0 [facility] Comment on above: Performed By: #### L [id number] ####[facility] ([facility])[address] [place] [address] MONOCYTES (10*3/UL) IN BLOOD BY CALCUATION 0.24 10*3/uL Normal 0.10-1.00 [facility] Comment on above: Performed By: #### L [id number] ####[facility] ([facility])[address] [place] [address] MONOCYTES/100 LEUKOCYTES IN BLOOD BY AUTOMATED COUNT 11.3 % Normal 5.0-12.0 [facility] Comment on above: Performed By: #### L [id number] ####[facility] ([facility])[address] [place] [address] NEUTROPHILS (10*3/UL) IN BLOOD BY CALCULATION 1.5 10*3/uL Low 1.6-7.6 [facility] Comment on above: Performed By: #### L [id number] ####[facility] ([facility])[address] [place] [address] NEUTROPHILS/100 LEUKOCYTES IN BLOOD BY AUTOMATED COUNT 69.8 % Normal 40.0-72.0 [facility] Comment on above: Performed By: #### L [id number] ####[facility] ([facility])[address] [place] [address] NURSNOTEon 09-26-2023 NURSNOTE Normal [facility] NURSNOTE Normal [facility] PHOSPHORUSon 09-26-2023 Magnesium [Mass/Vol] 3.2 mg/dL Normal 2.5-5.0 [facility] Comment on above: Performed By: #### L [id number] ####[facility] ([facility])[address] [place] [address] POCT GLUCOSE METER UNSOLICIT ED RESULTSon 09-26-2023 Glucose [Mass/Vol] 117 mg/dL High 70-105 [facility] Comment on above: Order Comment: Waive d Testing in the ED is performed under the ED CLIA certificate #[id number]. Result Comment: [email or web address] Performed By: #### L [id number] ####[facility] ([facility])[address] [place] [address] 30on 09-25-2023 30 Normal [facility] ANTI-XA (HEPARIN LEVEL)on HEPARIN UNFRACTIONATED (U/ML) IN PPP BY CHROMOGENIC METHOD 0.17 IU/mL Low 0.3-0.7 [facility] Comment on above: Result Comment: [place] roxaban and Apixaban will interfere with the anti Xa assay used to monitor UFH and LMWH. Performed By: #### L [id number] ####[facility] ([facility])[address] [place] [address] HEPARIN UNFRACTIONATED (U/ML) IN PPP BY CHROMOGENIC METHOD 0.19 IU/mL Low 0.3-0.7 [facility] Comment on above: Result Comment: [place] roxaban and Apixaban will interfere with the anti Xa assay used to monitor UFH and LMWH. Performed By: #### L [id number] ####[facility] ([facility])[address] [place] [address] HEPARIN UNFRACTIONATED (U/ML) IN PPP BY CHROMOGENIC METHOD 0.15 IU/mL Invalid Interpretation Code 0.3-0.7 [facility] Comment on above: Result Comment: [place] roxaban and Apixaban will interfere with the anti Xa assay used to monitor UFH and LMWH. Performed By: #### L [id number] ####[facility] ([facility])[address] [place] [address] APTTon 09-25-2023 ACTIVATED PARTIAL THROMBOPLASTIN TIME IN PPP BY COAGULATION ASSAY 71.9 Seconds High 25.0-35.0 [facility] Comment on above: Result Comment: Clin ical significance of the APTT is questionable in the presence of heparin. Performed By: #### L [id number] ####[facility] (BEAKER)[address] [place] [address] BASIC METABOLIC PANELon 12- Anion gap [Moles/Vol] 8 mmol/L Normal 7-20 [facility] Comment on above: Performed By: #### L [id number] ####[facility] ([facility])[address] [place] [address] Calcium [Mass/Vol] 8.4 mg/dL Low 8.6-10.3 [facility] Comment on above: Performed By: #### L [id number] ####[facility] ([facility])[address] [place] [address] Chloride [Moles/Vol] 105 mmol/L Normal 98-107 [facility] Comment on above: Performed By: #### L [id number] ####[facility] (BEAKER)[address] [place] [address] CO2 [Moles/Vol] 25 mmol/L Normal 21-31 [facility] Comment on above: Performed By: #### L [id number] ####[facility] ([facility]AKER)[address] [place] [address] Creatinine [Mass/Vol] 0.31 mg/dL Low 0.70-1.30 [facility] Comment on above: Performed By: #### L [id number] ####[facility] ([facility])[address] [place] [address] GLOMERULAR FILTRATION RATE ML/MIN/1.73 SQ M.PREDICTED 122.1 mL/min/1.73m*2 Normal >60.0 [facility] Comment on above: Result Comment: [facility]???s estimated glomerular filtration rate (eGFR) [...] of individuals. Performed By: #### L [id number] ####[facility] ([facility])[address] [place] [address] Glucose [Mass/Vol] 107 mg/dL High 70-100 [facility] Comment on above: Performed By: #### L [id number] ####[facility] ([facility])[address] [place] [address] Potassium [Moles/Vol] 3.7 mmol/L Normal 3.5-5.1 [facility] Comment on above: Performed By: #### L [id number] ####[facility] ([facility])[address] [place] [address] Sodium [Moles/Vol] 134 mmol/L Low 136-145 [facility] Comment on above: Performed By: #### L [id number] ####[facility] ([facility])[address] [facility] [address] Urea nitrogen [Mass/Vol] 13 mg/dL Normal 7-25 [facility] Comment on above: Performed By: #### L [id number] ####[facility] ([facility])[address] [place] [place] [address] UREA NITROGEN/CREATININE (MASS RATIO) IN SER/PLAS 41.9 Normal [facility] Comment on above: Performed By: #### L [id number] ####[facility] ([facility])[address] [place] [place] [address] CBC WITH AUTO DIFFERENTIALon 09-25-2023 Erythrocyte distribution width (RBC) [Ratio] 17.7 % High 11.5-15.0 [facility] Comment on above: Performed By: #### L [id number] ####[facility] ([facility])[address] [place] [address] ERYTHROCYTE MEAN CORPUSCULAR HEMOGLOBIN CONCENTRATION (G/DL) BY AUTOMATED 31.3 g/dL Low 32.0-35.0 [facility] Comment on above: Performed By: #### L [id number] ####[facility] ([facility])[address] [place] [address] Hematocrit (Bld) [Volume fraction] 24.0 % Low 39.0-55.0 [facility] Comment on above: Performed By: #### L [id number] ####[facility] ([facility])[address] [place] [address] Hemoglobin (Bld) [Mass/Vol] 7.5 g/dL Low 13.0-17.0 [facility] Comment on above: Performed By: #### L [id number] ####[facility] ([facility])[address] [place] [address] IMMATURE PLATELET FRACTION % 2.7 % Normal 0.8-6.3 [facility] Comment on above: Performed By: #### L [id number] ####[facility] ([facility])[address] [place] [address] MCH (RBC) [Entitic mass] 27.0 pg Normal 27.0-33.0 [facility] Comment on above: Performed By: #### L [id number] ####[facility] ([facility])[address] [place] [address] MCV (RBC) [Entitic vol] 86.3 fL Normal 82.0-98.0 [facility] Comment on above: Performed By: #### L [id number] ####[facility] ([facility])[address] [place] [address] NRBC (PER 100 WBCS) BY AUTOMATED COUNT 0.0 % Normal 0 [facility] Comment on above: Performed By: #### L [id number] ####[facility] ([facility])[address] [place] [address] PLATELETS (10*3/UL) IN BLOOD AUTOMATED COUNT 73 10*3/uL Low 150-400 [facility] Comment on above: Result Comment: Last plt 73 1d Performed By: #### L [id number] ####[facility] ([facility])[address] [place] [address] RBC (Bld) [#/Vol] 2.78 10*6/uL Low 4.20-5.[address] [facility] Comment on above: Performed By: #### L [id number] ####[facility] ([facility])[address] [place] [address] WBC (Bld) [#/Vol] 2.11 10*3/uL Low 4.00-10.[address] [facility] Comment on above: Performed By: #### L [id number] ####[facility] ([facility])[address] [place] [address] MAGNESIUMon 09-25-2023 Magnesium [Mass/Vol] 1.6 mg/dL Low 1.9-2.7 [facility] Comment on above: Performed By: #### L [id number] ####[facility] ([facility])[address] [place] [address] MANUAL DIFFERENTIALon 2022 BASOPHILS (10*3/UL) IN BLOOD BY CALCULATION 0.01 10*3/uL Normal 0.00-0.20 [facility] Comment on above: Performed By: #### L [id number] ####[facility] ([facility])[address] [place] [address] BASOPHILS/100 LEUKOCYTES IN BLOOD BY AUTOMATED COUNT 0.5 % Normal 0.0-1.0 [facility] Comment on above: Performed By: #### L [id number] ####[facility] ([facility])[address] [place] [address] EOSINOPHILS (10*3/UL) IN BLOOD BY CALCULATION 0.04 10*3/uL Normal 0.00-0.50 [facility] Comment on above: Performed By: #### L [id number] ####[facility] ([facility])[address] [place] [address] EOSINOPHILS/100 LEUKOCYTES IN BLOOD BY AUTOMATED COUNT 1.9 % Normal 0.0-6.0 [facility] Comment on above: Performed By: #### L [id number] ####[facility] ([facility])[address] [place] [address] IMMATURE GRANULOCYTES (10*3/UL) IN BLOOD BY CALCULATION 0.01 10*3/uL Normal 0.00-0.20 [facility] Comment on above: Performed By: #### L [id number] ####[facility] ([facility])[address] [place] [address] IMMATURE GRANULOCYTES/100 LEUKOCYTES IN BLOOD BY AUTOMATED COUNT 0.5 % Normal 0.0-1.0 [facility] Comment on above: Performed By: #### L [id number] ####[facility] ([facility])[address] [place] [address] LYMPHOCYTES (10*3/UL) IN BLOOD BY CALCULATION 0.37 10*3/uL Low 1.20-4.00 [facility] Comment on above: Performed By: #### L [id number] ####[facility] ([facility])[address] [place] [address] LYMPHOCYTES/100 LEUKOCYTES IN BLOOD BY AUTOMATED COUNT 17.5 % Low 20.0-45.0 [facility] Comment on above: Performed By: #### L [id number] ####[facility] ([facility])[address] [place] [address] MONOCYTES (10*3/UL) IN BLOOD BY CALCUATION 0.22 10*3/uL Normal 0.10-1.00 [facility] Comment on above: Performed By: #### L [id number] ####[facility] ([facility])[address] [place] [address] MONOCYTES/100 LEUKOCYTES IN BLOOD BY AUTOMATED COUNT 10.4 % Normal 5.0-12.0 [facility] Comment on above: Performed By: #### L [id number] ####[facility] ([facility])[address] [place] [address] NEUTROPHILS (10*3/UL) IN BLOOD BY CALCULATION 1.5 10*3/uL Low 1.6-7.6 [facility] Comment on above: Performed By: #### L [id number] ####[facility] ([facility])[address] [place] [address] NEUTROPHILS/100 LEUKOCYTES IN BLOOD BY AUTOMATED COUNT 69.2 % Normal 40.0-72.0 [facility] Comment on above: Performed By: #### L [id number] ####[facility] ([facility])[address] [place] [address] NURSNOTEon 09-25-2023 NURSNOTE Pt would not let francis lee change his wound vac, stated that it would be changed tomorrow when he is discharged. He did however let us bathe him, change linens and change his picc line dressing today. Paulina Kay RN [facility] PHOSPHORUSon 09-25-2023 Magnesium [Mass/Vol] 2.7 mg/dL Normal 2.5-5.0 [facility] Comment on above: Performed By: #### L [id number] ####[facility] ([facility])[address] [place] [address] POCT GLUCOSE METER UNSOLICIT ED RESULTSon 09-25-2023 Glucose [Mass/Vol] 97 mg/dL Normal 70-105 [facility] Comment on above: Order Comment: Waive d Testing in the ED is performed under the ED CLIA certificate #[id number]. Result Comment: [email or web address] Performed By: #### L [id number] ####[facility] ([facility])[address] [place] [address] Glucose [Mass/Vol] 188 mg/dL High 70-105 [facility] Comment on above: Order Comment: Waive d Testing in the ED is performed under the ED CLIA certificate #[id number]. Result Comment: [email or web address] Performed By: #### L [id number] ####[facility] ([facility])[address] [place] [address] Glucose [Mass/Vol] 125 mg/dL High 70-105 [facility] Comment on above: Order Comment: Waive d Testing in the ED is performed under the ED CLIA certificate #[id number]. Result Comment: [email or web address] Performed By: #### L [id number] ####[facility] ([facility])[address] [place] [address] Glucose [Mass/Vol] 108 mg/dL High 70-105 [facility] Comment on above: Order Comment: Waive d Testing in the ED is performed under the ED CLIA certificate #[id number]. Result Comment: [email or web address] Performed By: #### L [id number] ####[facility] ([facility])[address] [place] [address] 30on 09-24-2023 30 Normal [facility] ANTI-XA (HEPARIN LEVEL)on HEPARIN UNFRACTIONATED (U/ML) IN PPP BY CHROMOGENIC METHOD <0.10 Invalid Interpretation Code 0.3-0.7 [facility] Comment on above: Result Comment: [place] roxaban and Apixaban will interfere with the anti Xa assay used to monitor UFH and LMWH. Performed By: #### L [id number] ####[facility] ([facility])[address] [place] [address] BASIC METABOLIC PANELon 09-09 Anion gap [Moles/Vol] 8 mmol/L Normal 7-20 [facility] Comment on above: Performed By: #### L [id number] ####[facility] ([facility])[address] [place] [address] Calcium [Mass/Vol] 8.4 mg/dL Low 8.6-10.3 [facility] Comment on above: Performed By: #### L [id number] ####[facility] ([facility])[address] [place] [address] Chloride [Moles/Vol] 103 mmol/L Normal 98-107 [facility] Comment on above: Performed By: #### L [id number] ####[facility] ([facility])[address] [place] [address] CO2 [Moles/Vol] 28 mmol/L Normal 21-31 [facility] Comment on above: Performed By: #### L [id number] ####[facility] ([facility])[address] [place] [address] Creatinine [Mass/Vol] 0.36 mg/dL Low 0.70-1.30 [facility] Comment on above: Performed By: #### L [id number] ####[facility] ([facility])[address] [place] [address] GLOMERULAR FILTRATION RATE ML/MIN/1.73 SQ M.PREDICTED 116.7 mL/min/1.73m*2 Normal >60.0 [facility] Comment on above: Result Comment: [facility]???s estimated glomerular filtration rate (eGFR) [...] of individuals. Performed By: #### L [id number] ####[facility] ([facility])[address] [place] [address] Glucose [Mass/Vol] 100 mg/dL Normal 70-100 [facility] Comment on above: Performed By: #### L [id number] ####[facility] ([facility])[address] [place] [address] Potassium [Moles/Vol] 3.5 mmol/L Normal 3.5-5.1 [facility] Comment on above: Performed By: #### L [id number] ####[facility] ([facility])[address] [place] [address] Sodium [Moles/Vol] 135 mmol/L Low 136-145 [facility] Comment on above: Performed By: #### L [id number] ####[facility] ([facility])[address] [place] [address] Urea nitrogen [Mass/Vol] 13 mg/dL Normal 7-25 [facility] Comment on above: Performed By: #### L [id number] ####[facility] ([facility])[address] [place] [address] UREA NITROGEN/CREATININE (MASS RATIO) IN SER/PLAS 36.1 Normal [facility] Comment on above: Performed By: #### L [id number] ####[facility] ([facility])[address] [place] [address] CBC WITH AUTO DIFFERENTIALon 09-24-2023 Erythrocyte distribution width (RBC) [Ratio] 17.8 % High 11.5-15.0 [facility] Comment on above: Performed By: #### L [id number] ####[facility] ([facility])[address] [place] [address] ERYTHROCYTE MEAN CORPUSCULAR HEMOGLOBIN CONCENTRATION (G/DL) BY AUTOMATED 32.1 g/dL Normal 32.0-35.0 [facility] Comment on above: Performed By: #### L [id number] ####[facility] ([facility])[address] [place] [address] Hematocrit (Bld) [Volume fraction] 23.7 % Low 39.0-55.0 [facility] Comment on above: Performed By: #### L [id number] ####[facility] ([facility])[address] [place] [address] Hemoglobin (Bld) [Mass/Vol] 7.6 g/dL Low 13.0-17.0 [facility] Comment on above: Performed By: #### L [id number] ####[facility] ([facility])[address] [place] [address] IMMATURE PLATELET FRACTION % 3.1 % Normal 0.8-6.3 [facility] Comment on above: Performed By: #### L [id number] ####[facility] ([facility])[address] [place] [address] MCH (RBC) [Entitic mass] 27.7 pg Normal 27.0-33.0 [facility] Comment on above: Performed By: #### L [id number] ####[facility] ([facility])[address] [place] [address] MCV (RBC) [Entitic vol] 86.5 fL Normal 82.0-98.0 [facility] Comment on above: Performed By: #### L [id number] ####[facility] ([facility])[address] [place] [address] NRBC (PER 100 WBCS) BY AUTOMATED COUNT 0.0 % Normal 0 [facility] Comment on above: Performed By: #### L [id number] ####[facility] ([facility])[address] [place] [address] PLATELETS (10*3/UL) IN BLOOD AUTOMATED COUNT 73 10*3/uL Low 150-400 [facility] Comment on above: Performed By: #### L [id number] ####[facility] ([facility])[address] [place] [address] RBC (Bld) [#/Vol] 2.74 10*6/uL Low 4.20-5.[address] [facility] Comment on above: Performed By: #### L [id number] ####[facility] ([facility])[address] [place] [address] WBC (Bld) [#/Vol] 2.37 10*3/uL Low 4.00-10.[address] [facility] Comment on above: Performed By: #### L [id number] ####[facility] ([facility])[address] [place] [address] MAGNESIUMon 09-24-2023 Magnesium [Mass/Vol] 1.6 mg/dL Low 1.9-2.7 [facility] Comment on above: Performed By: #### L [id number] ####[facility] ([facility])[address] [place] [address] MANUAL DIFFERENTIALon 2022 BASOPHILS (10*3/UL) IN BLOOD BY CALCULATION 0.01 10*3/uL Normal 0.00-0.20 [facility] Comment on above: Performed By: #### L [id number] ####[facility] ([facility])[address] [place] [address] BASOPHILS/100 LEUKOCYTES IN BLOOD BY AUTOMATED COUNT 0.4 % Normal 0.0-1.0 [facility] Comment on above: Performed By: #### L [id number] ####[facility] ([facility])[address] [place] [address] EOSINOPHILS (10*3/UL) IN BLOOD BY CALCULATION 0.03 10*3/uL Normal 0.00-0.50 [facility] Comment on above: Performed By: #### L [id number] ####[facility] ([facility])[address] [place] [address] EOSINOPHILS/100 LEUKOCYTES IN BLOOD BY AUTOMATED COUNT 1.3 % Normal 0.0-6.0 [facility] Comment on above: Performed By: #### L [id number] ####[facility] ([facility])[address] [place] [address] IMMATURE GRANULOCYTES (10*3/UL) IN BLOOD BY CALCULATION 0.01 10*3/uL Normal 0.00-0.20 [facility] Comment on above: Performed By: #### L [id number] ####[facility] ([facility])[address] [place] [address] IMMATURE GRANULOCYTES/100 LEUKOCYTES IN BLOOD BY AUTOMATED COUNT 0.4 % Normal 0.0-1.0 [facility] Comment on above: Performed By: #### L [id number] ####[facility] ([facility])[address] [place] [address] LYMPHOCYTES (10*3/UL) IN BLOOD BY CALCULATION 0.37 10*3/uL Low 1.20-4.00 [facility] Comment on above: Performed By: #### L [id number] ####[facility] ([facility])[address] [place] [address] LYMPHOCYTES/100 LEUKOCYTES IN BLOOD BY AUTOMATED COUNT 15.6 % Low 20.0-45.0 [facility] Comment on above: Performed By: #### L [id number] ####[facility] ([facility])[address] [address] MONOCYTES (10*3/UL) IN BLOOD BY CALCUATION 0.19 10*3/uL Normal 0.10-1.00 [facility] Comment on above: Performed By: #### L [id number] ####[facility] ([facility])[address] [address] MONOCYTES/100 LEUKOCYTES IN BLOOD BY AUTOMATED COUNT 8.0 % Normal 5.0-12.0 [facility] Comment on above: Performed By: #### L [id number] ####[facility] ([facility])[address] [address] NEUTROPHILS (10*3/UL) IN BLOOD BY CALCULATION 1.8 10*3/uL Normal 1.6-7.6 [facility] Comment on above: Performed By: #### L [id number] ####[facility] ([facility])[address] [address] NEUTROPHILS/100 LEUKOCYTES IN BLOOD BY AUTOMATED COUNT 74.3 % High 40.0-72.0 [facility] Comment on above: Performed By: #### L [id number] ####[facility] ([facility])[address] [place] [address] PHOSPHORUSon 09-24-2023 Magnesium [Mass/Vol] 3.0 mg/dL Normal 2.5-5.0 [facility] Comment on above: Performed By: #### L [id number] ####[facility] ([facility])[address] [place] [address] POCT GLUCOSE METER UNSOLICIT ED RESULTSon 09-24-2023 Glucose [Mass/Vol] 188 mg/dL High 70-105 [facility] Comment on above: Order Comment: Waive d Testing in the ED is performed under the ED CLIA certificate #[id number]. Result Comment: [email or web address] Performed By: #### L [id number] ####[facility] ([facility])[address] [place] [address] Glucose [Mass/Vol] 170 mg/dL High 70-105 [facility] Comment on above: Order Comment: Waive d Testing in the ED is performed under the ED CLIA certificate #[id number]. Result Comment: [email or web address] Performed By: #### L [id number] ####[facility] ([facility])[address] [place] [address] Glucose [Mass/Vol] 237 mg/dL High 70-105 [facility] Comment on above: Order Comment: Waive d Testing in the ED is performed under the ED CLIA certificate #[id number]. Result Comment: [email or web address] Performed By: #### L [id number] ####[facility] ([facility])[address] [place] [address] Glucose [Mass/Vol] 105 mg/dL Normal 70-105 [facility] Comment on above: Order Comment: Waive d Testing in the ED is performed under the ED CLIA certificate #[id number]. Result Comment: [email or web address] Performed By: #### L [id number] ####[facility] ([facility])[address] [place] [address] VANCOMYCIN, TROUGHon 023 VANCOMYCIN (UG/ML) IN SER/PLAS - TROUGH 11.7 ug/mL Normal 5.0-20.0 [facility] Comment on above: Performed By: #### L [id number] ####[facility] ([facility])[address] [place] [address] 30on 09-23-2023 30 Normal [facility] 30 Normal [facility] ANTI-XA (HEPARIN LEVEL)on HEPARIN UNFRACTIONATED (U/ML) IN PPP BY CHROMOGENIC METHOD 0.30 IU/mL Normal 0.3-0.7 [facility] Comment on above: Result Comment: [place] roxaban and Apixaban will interfere with the anti Xa assay used to monitor UFH and LMWH. Performed By: #### L [id number] ####[facility] ([facility])[address] [place] [address] HEPARIN UNFRACTIONATED (U/ML) IN PPP BY CHROMOGENIC METHOD 0.38 IU/mL Normal 0.3-0.7 [facility] Comment on above: Result Comment: [place] roxaban and Apixaban will interfere with the anti Xa assay used to monitor UFH and LMWH. Performed By: #### L [id number] ####[facility] ([facility])[address] [place] [address] HEPARIN UNFRACTIONATED (U/ML) IN PPP BY CHROMOGENIC METHOD 0.35 IU/mL Normal 0.3-0.7 [facility] Comment on above: Result Comment: [place] roxaban and Apixaban will interfere with the anti Xa assay used to monitor UFH and LMWH. Performed By: #### L [id number] ####[facility] ([facility])[address] [place] [address] HEPARIN UNFRACTIONATED (U/ML) IN PPP BY CHROMOGENIC METHOD 0.29 IU/mL Low 0.3-0.7 [facility] Comment on above: Result Comment: [place] roxaban and Apixaban will interfere with the anti Xa assay used to monitor UFH and LMWH. Performed By: #### L [id number] ####[facility] ([facility])[address] [place] [address] BASIC METABOLIC PANELon 12- Anion gap [Moles/Vol] 8 mmol/L Normal 7-20 [facility] Comment on above: Performed By: #### L [id number] ####[facility] ([facility])[address] [place] [address] Calcium [Mass/Vol] 7.9 mg/dL Low 8.6-10.3 [facility] Comment on above: Performed By: #### L [id number] ####[facility] ([facility])[address] [place] [address] Chloride [Moles/Vol] 104 mmol/L Normal 98-107 [facility] Comment on above: Performed By: #### L [id number] ####[facility] ([facility])[address] [place] [address] CO2 [Moles/Vol] 26 mmol/L Normal 21-31 [facility] Comment on above: Performed By: #### L [id number] ####[facility] ([facility])[address] [place] [address] Creatinine [Mass/Vol] 0.44 mg/dL Low 0.70-1.30 [facility] Comment on above: Performed By: #### L [id number] ####[facility] ([facility])[address] [place] [address] GLOMERULAR FILTRATION RATE ML/MIN/1.73 SQ M.PREDICTED 109.9 mL/min/1.73m*2 Normal >60.0 [facility] Comment on above: Result Comment: [facility]???s estimated glomerular filtration rate (eGFR) [...] of individuals. Performed By: #### L [id number] ####[facility] ([facility])[address] [place] [address] Glucose [Mass/Vol] 110 mg/dL High 70-100 [facility] Comment on above: Performed By: #### L [id number] ####[facility] ([facility])[address] [place] [address] Potassium [Moles/Vol] 3.7 mmol/L Normal 3.5-5.1 [facility] Comment on above: Performed By: #### L [id number] ####[facility] ([facility])[address] [place] [address] Sodium [Moles/Vol] 134 mmol/L Low 136-145 [facility] Comment on above: Performed By: #### L [id number] ####[facility] ([facility])[address] [place] [address] Urea nitrogen [Mass/Vol] 16 mg/dL Normal 7-25 [facility] Comment on above: Performed By: #### L [id number] ####[facility] ([facility])[address] [place] [address] UREA NITROGEN/CREATININE (MASS RATIO) IN SER/PLAS 36.4 Normal [facility] Comment on above: Performed By: #### L [id number] ####[facility] ([facility])[address] [place] [address] CBC WITH AUTO DIFFERENTIALon 09-23-2023 Erythrocyte distribution width (RBC) [Ratio] 17.6 % High 11.5-15.0 [facility] Comment on above: Performed By: #### L [id number] ####[facility] ([facility])[address] [place] [address] ERYTHROCYTE MEAN CORPUSCULAR HEMOGLOBIN CONCENTRATION (G/DL) BY AUTOMATED 32.3 g/dL Normal 32.0-35.0 [facility] Comment on above: Performed By: #### L [id number] ####[facility] ([facility])[address] [place] [address] Hematocrit (Bld) [Volume fraction] 23.5 % Low 39.0-55.0 [facility] Comment on above: Performed By: #### L [id number] ####[facility] ([facility])[address] [place] [address] Hemoglobin (Bld) [Mass/Vol] 7.6 g/dL Low 13.0-17.0 [facility] Comment on above: Result Comment: Resu lts checked pt has wound vac after surgery on 09/22/23 Performed By: #### L [id number] ####[facility] ([facility])[address] [place] [address] IMMATURE PLATELET FRACTION % 2.3 % Normal 0.8-6.3 [facility] Comment on above: Performed By: #### L [id number] ####[facility] ([facility])[address] [place] [address] MCH (RBC) [Entitic mass] 27.7 pg Normal 27.0-33.0 [facility] Comment on above: Performed By: #### L [id number] ####[facility] ([facility])[address] [place] [address] MCV (RBC) [Entitic vol] 85.8 fL Normal 82.0-98.0 [facility] Comment on above: Performed By: #### L [id number] ####[facility] ([facility])[address] [place] [address] NRBC (PER 100 WBCS) BY AUTOMATED COUNT 0.0 % Normal 0 [facility] Comment on above: Performed By: #### L [id number] ####[facility] ([facility])[address] [place] [address] PLATELETS (10*3/UL) IN BLOOD AUTOMATED COUNT 71 10*3/uL Low 150-400 [facility] Comment on above: Result Comment: Last plt 109 1d Performed By: #### L [id number] ####[facility] ([facility])[address] [place] [address] RBC (Bld) [#/Vol] 2.74 10*6/uL Low 4.20-5.[address] [facility] Comment on above: Performed By: #### L [id number] ####[facility] ([facility])[address] [place] [address] WBC (Bld) [#/Vol] 2.37 10*3/uL Low 4.00-10.[address] [facility] Comment on above: Performed By: #### L [id number] ####[facility] ([facility])[address] [place] [address] HEMOGLOBIN AND HEMATOCRIT, B LOODon 09-23-2023 Hematocrit (Bld) [Volume fraction] 26.5 % Low 39.0-55.0 [facility] Comment on above: Performed By: #### L [id number] ####[facility] ([facility])[address] [place] [address] Hemoglobin (Bld) [Mass/Vol] 8.4 g/dL Low 13.0-17.0 [facility] Comment on above: Performed By: #### L [id number] ####[facility] ([facility])[address], [place] [address] Hematocrit (Bld) [Volume fraction] 24.0 % Low 39.0-55.0 [facility] Comment on above: Performed By: #### L [id number] ####[facility] ([facility])[address] [place] [address] Hemoglobin (Bld) [Mass/Vol] 7.7 g/dL Low 13.0-17.0 [facility] Comment on above: Performed By: #### L [id number] ####[facility] ([facility])[address] [place] [address] MAGNESIUMon 09-23-2023 Magnesium [Mass/Vol] 1.6 mg/dL Low 1.9-2.7 [facility] Comment on above: Performed By: #### L [id number] ####[facility] ([facility])[address] [place] [address] MANUAL DIFFERENTIALon 2022 BASOPHILS (10*3/UL) IN BLOOD BY CALCULATION 0.01 10*3/uL Normal 0.00-0.20 [facility] Comment on above: Performed By: #### L [id number] ####[facility] ([facility])[address] [place] [address] BASOPHILS/100 LEUKOCYTES IN BLOOD BY AUTOMATED COUNT 0.4 % Normal 0.0-1.0 [facility] Comment on above: Performed By: #### L [id number] ####[facility] ([facility])[address] [place] [address] EOSINOPHILS (10*3/UL) IN BLOOD BY CALCULATION 0.04 10*3/uL Normal 0.00-0.50 [facility] Comment on above: Performed By: #### L [id number] ####[facility] ([facility])[address] [place] [address] EOSINOPHILS/100 LEUKOCYTES IN BLOOD BY AUTOMATED COUNT 1.7 % Normal 0.0-6.0 [facility] Comment on above: Performed By: #### L [id number] ####[facility] ([facility])[address] [place] [address] IMMATURE GRANULOCYTES (10*3/UL) IN BLOOD BY CALCULATION 0.01 10*3/uL Normal 0.00-0.20 [facility] Comment on above: Performed By: #### L [id number] ####[facility] ([facility])[address] [place] [address] IMMATURE GRANULOCYTES/100 LEUKOCYTES IN BLOOD BY AUTOMATED COUNT 0.4 % Normal 0.0-1.0 [facility] Comment on above: Performed By: #### L [id number] ####[facility] ([facility])[address] [place] [address] LYMPHOCYTES (10*3/UL) IN BLOOD BY CALCULATION 0.36 10*3/uL Low 1.20-4.00 [facility] Comment on above: Performed By: #### L [id number] ####[facility] ([facility])[address] [place] [address] LYMPHOCYTES/100 LEUKOCYTES IN BLOOD BY AUTOMATED COUNT 15.2 % Low 20.0-45.0 [facility] Comment on above: Performed By: #### L [id number] ####[facility] ([facility])[address] [place] [address] MONOCYTES (10*3/UL) IN BLOOD BY CALCUATION 0.18 10*3/uL Normal 0.10-1.00 [facility] Comment on above: Performed By: #### L [id number] ####[facility] ([facility])[address] [place] [address] MONOCYTES/100 LEUKOCYTES IN BLOOD BY AUTOMATED COUNT 7.6 % Normal 5.0-12.0 [facility] Comment on above: Performed By: #### L [id number] ####[facility] ([facility])[address] [place] [address] NEUTROPHILS (10*3/UL) IN BLOOD BY CALCULATION 1.8 10*3/uL Normal 1.6-7.6 [facility] Comment on above: Performed By: #### L [id number] ####[facility] ([facility])[address] [place] [address] NEUTROPHILS/100 LEUKOCYTES IN BLOOD BY AUTOMATED COUNT 74.7 % High 40.0-72.0 [facility] Comment on above: Performed By: #### L [id number] ####[facility] ([facility])[address] [place] [address] PHOSPHORUSon 09-23-2023 Magnesium [Mass/Vol] 2.4 mg/dL Low 2.5-5.0 [facility] Comment on above: Performed By: #### L [id number] ####[facility] ([facility])[address] [place] [address] POCT GLUCOSE METER UNSOLICIT ED RESULTSon 09-23-2023 Glucose [Mass/Vol] 188 mg/dL High 70-105 [facility] Comment on above: Order Comment: Waive d Testing in the ED is performed under the ED CLIA certificate #[id number]. Result Comment: [email or web address] Performed By: #### L [id number] ####[facility] ([facility])[address] [place] [address] Glucose [Mass/Vol] 158 mg/dL High 70-105 [facility] Comment on above: Order Comment: Waive d Testing in the ED is performed under the ED CLIA certificate #[id number]. Result Comment: [email or web address] Performed By: #### L [id number] ####[facility] ([facility])[address] [facility] [address] Glucose [Mass/Vol] 252 mg/dL High 70-105 [facility] Comment on above: Order Comment: Waive d Testing in the ED is performed under the ED CLIA certificate #[id number]. Result Comment: [email or web address] Performed By: #### L [id number] ####[facility] ([facility])[address] [address] Glucose [Mass/Vol] 120 mg/dL High 70-105 [facility] Comment on above: Order Comment: Waive d Testing in the ED is performed under the ED CLIA certificate #[id number]. Result Comment: [email or web address] Performed By: #### L [id number] ####[facility] ([facility])[address] [facility] [address] VANCOMYCIN, PEAKon 3 VANCOMYCIN (UG/ML) IN SER/PLAS - PEAK 23.7 ug/mL Normal 20.0-50.0 [facility] Comment on above: Performed By: #### L [id number] ####[facility] ([facility])[address] [facility] [place] [address] 30on 09-22-2023 30 Normal [facility] 30 Normal [facility] 30 Normal [facility] ANTI-XA (HEPARIN LEVEL)on HEPARIN UNFRACTIONATED (U/ML) IN PPP BY CHROMOGENIC METHOD 0.21 IU/mL Low 0.3-0.7 [facility] Comment on above: Order Comment: Check anti-Xa level every 6 hours while on heparin infusion, or per protocol. Result Comment: [place] roxaban and Apixaban will interfere with the anti Xa assay used to monitor UFH and LMWH. Performed By: #### L [id number] ####[facility] ([facility])[address] [facility] [address] HEPARIN UNFRACTIONATED (U/ML) IN PPP BY CHROMOGENIC METHOD 0.25 IU/mL Low 0.3-0.7 [facility] Comment on above: Order Comment: Check anti-Xa level every 6 hours while on heparin infusion, or per protocol. Result Comment: [place] roxaban and Apixaban will interfere with the anti Xa assay used to monitor UFH and LMWH. Performed By: #### L [id number] ####[facility] ([facility])[address] [place] [address] HEPARIN UNFRACTIONATED (U/ML) IN PPP BY CHROMOGENIC METHOD 0.22 IU/mL Low 0.3-0.7 [facility] Comment on above: Result Comment: [place] roxaban and Apixaban will interfere with the anti Xa assay used to monitor UFH and LMWH. Performed By: #### L [id number] ####[facility] ([facility])[address] [facility] [address] HEPARIN UNFRACTIONATED (U/ML) IN PPP BY CHROMOGENIC METHOD 0.22 IU/mL Low 0.3-0.7 [facility] Comment on above: Order Comment: Check anti-Xa level every 6 hours while on heparin infusion, or per protocol. Result Comment: [place] roxaban and Apixaban will interfere with the anti Xa assay used to monitor UFH and LMWH. Performed By: #### L [id number] ####[facility] ([facility])[address] [place] [address] BASIC METABOLIC PANELon 12 Anion gap [Moles/Vol] 8 mmol/L Normal 7-20 [facility] Comment on above: Performed By: #### L [id number] ####[facility] ([facility])[address] [place] [address] Calcium [Mass/Vol] 8.0 mg/dL Low 8.6-10.3 [facility] Comment on above: Performed By: #### L [id number] ####[facility] ([facility])[address] [place] [address] Chloride [Moles/Vol] 102 mmol/L Normal 98-107 [facility] Comment on above: Performed By: #### L [id number] ####[facility] ([facility])[address] [place] [address] CO2 [Moles/Vol] 26 mmol/L Normal 21-31 [facility] Comment on above: Performed By: #### L [id number] ####[facility] ([facility])[address] [place] [address] Creatinine [Mass/Vol] 0.41 mg/dL Low 0.70-1.30 [facility] Comment on above: Performed By: #### L [id number] ####[facility] ([facility])[address] [place] [address] GLOMERULAR FILTRATION RATE ML/MIN/1.73 SQ M.PREDICTED 112.2 mL/min/1.73m*2 Normal >60.0 [facility] Comment on above: Result Comment: [facility]???s estimated glomerular filtration rate (eGFR) [...] of individuals. Performed By: #### L [id number] ####[facility] ([facility])[address] [place] [address] Glucose [Mass/Vol] 110 mg/dL High 70-100 [facility] Comment on above: Performed By: #### L [id number] ####[facility] ([facility])[address] [place] [address] Potassium [Moles/Vol] 3.7 mmol/L Normal 3.5-5.1 [facility] Comment on above: Performed By: #### L [id number] ####[facility] ([facility])[address] [place] [address] Sodium [Moles/Vol] 132 mmol/L Low 136-145 [facility] Comment on above: Performed By: #### L [id number] ####[facility] ([facility])[address] [place] [address] Urea nitrogen [Mass/Vol] 16 mg/dL Normal 7-25 [facility] Comment on above: Performed By: #### L [id number] ####[facility] ([facility])[address] [place] [address] UREA NITROGEN/CREATININE (MASS RATIO) IN SER/PLAS 39.0 Normal [facility] Comment on above: Performed By: #### L [id number] ####[facility] ([facility])[address] [place] [address] CBC WITH AUTO DIFFERENTIALon 09-22-2023 Basophils (Bld) [#/Vol] 0.00 10*3/uL Normal 0.00-0.20 [facility] Comment on above: Performed By: #### L [id number] ####[facility] ([facility])[address] [place] [address] Basophils/100 WBC (Bld) 0.0 % Normal 0.0-1.0 [facility] Comment on above: Performed By: #### L [id number] ####[facility] ([facility])[address] [place] [address] Eosinophils (Bld) [#/Vol] 0.03 10*3/uL Normal 0.00-0.50 [facility] Comment on above: Performed By: #### L [id number] ####[facility] ([facility])[address] [place] [address] Eosinophils/100 WBC (Bld) 0.7 % Normal 0.0-6.0 [facility] Comment on above: Performed By: #### L [id number] ####[facility] ([facility])[address] [place] [address] Erythrocyte distribution width (RBC) [Ratio] 17.6 % High 11.5-15.0 [facility] Comment on above: Performed By: #### L [id number] ####[facility] ([facility])[address] [place] [address] ERYTHROCYTE MEAN CORPUSCULAR HEMOGLOBIN CONCENTRATION (G/DL) BY AUTOMATED 32.2 g/dL Normal 32.0-35.0 [facility] Comment on above: Performed By: #### L [id number] ####[facility] ([facility])[address] [place] [address] Hematocrit (Bld) [Volume fraction] 27.6 % Low 39.0-55.0 [facility] Comment on above: Performed By: #### L [id number] ####[facility] ([facility])[address] [place] [address] Hemoglobin (Bld) [Mass/Vol] 8.9 g/dL Low 13.0-17.0 [facility] Comment on above: Performed By: #### L [id number] ####[facility] ([facility])[address] [place] [address] Immature granulocytes (Bld) [#/Vol] 0.02 10*3/uL Normal 0.00-0.20 [facility] Comment on above: Performed By: #### L [id number] ####[facility] ([facility])[address] [place] [address] Immature granulocytes/100 WBC (Bld) 0.5 % Normal 0.0-1.0 [facility] Comment on above: Performed By: #### L [id number] ####[facility] ([facility])[address] [place] [address] Lymphocytes (Bld) [#/Vol] 0.45 10*3/uL Low 1.20-4.00 [facility] Comment on above: Performed By: #### L [id number] ####[facility] ([facility])[address] [place] [address] Lymphocytes/100 WBC (Bld) 10.6 % Low 20.0-45.0 [facility] Comment on above: Performed By: #### L [id number] ####[facility] ([facility])[address] [place] [address] MCH (RBC) [Entitic mass] 27.5 pg Normal 27.0-33.0 [facility] Comment on above: Performed By: #### L [id number] ####[facility] ([facility])[address] [place] [address] MCV (RBC) [Entitic vol] 85.2 fL Normal 82.0-98.0 [facility] Comment on above: Performed By: #### L [id number] ####[facility] ([facility])[address] [place] [address] Monocytes (Bld) [#/Vol] 0.45 10*3/uL Normal 0.10-1.00 [facility] Comment on above: Performed By: #### L [id number] ####[facility] ([facility])[address] [place] [address] Monocytes/100 WBC (Bld) 10.6 % Normal 5.0-12.0 [facility] Comment on above: Performed By: #### L [id number] ####[facility] ([facility])[address] [place] [address] Neutrophils (Bld) [#/Vol] 3.28 10*3/uL Normal 1.60-7.60 [facility] Comment on above: Performed By: #### L [id number] ####[facility] ([facility])[address] [place] [address] Neutrophils/100 WBC (Bld) 77.6 % High 40.0-72.0 [facility] Comment on above: Performed By: #### L [id number] ####[facility] ([facility])[address] [place] [address] NRBC (PER 100 WBCS) BY AUTOMATED COUNT 0.0 % Normal 0 [facility] Comment on above: Performed By: #### L [id number] ####[facility] ([facility])[address] [place] [address] PLATELETS (10*3/UL) IN BLOOD AUTOMATED COUNT 109 10*3/uL Low 150-400 [facility] Comment on above: Performed By: #### L [id number] ####[facility] ([facility])[address] [place] [address] RBC (Bld) [#/Vol] 3.24 10*6/uL Low 4.20-5.[address] [facility] Comment on above: Performed By: #### L [id number] ####[facility] ([facility])[address] [place] [address] WBC (Bld) [#/Vol] 4.23 10*3/uL Normal 4.00-10.[address] [facility] Comment on above: Performed By: #### L [id number] ####[facility] ([facility])[address] [place] [address] HEMOGLOBIN AND HEMATOCRIT, B LOODon 09-22-2023 Hematocrit (Bld) [Volume fraction] 30.1 % Low 39.0-55.0 [facility] Comment on above: Performed By: #### L [id number] ####[facility] ([facility])[address] [place] [address] Hemoglobin (Bld) [Mass/Vol] 9.8 g/dL Low 13.0-17.0 [facility] Comment on above: Performed By: #### L [id number] ####[facility] ([facility])[address] [place] [address] MAGNESIUMon 09-22-2023 Magnesium [Mass/Vol] 1.7 mg/dL Low 1.9-2.7 [facility] Comment on above: Performed By: #### L [id number] ####[facility] ([facility])[address] [place] [address] PHOSPHORUSon 09-22-2023 Magnesium [Mass/Vol] 2.0 mg/dL Low 2.5-5.0 [facility] Comment on above: Performed By: #### L [id number] ####[facility] ([facility])[address] [place] [address] POCT GLUCOSE METER UNSOLICIT ED RESULTSon 09-22-2023 Glucose [Mass/Vol] 102 mg/dL Normal 70-105 [facility] Comment on above: Order Comment: Waive d Testing in the ED is performed under the ED CLIA certificate #[id number]. Result Comment: [email or web address] Performed By: #### L [id number] ####[facility] ([facility])[address] [place] [address] Glucose [Mass/Vol] 212 mg/dL High 70-105 [facility] Comment on above: Order Comment: Waive d Testing in the ED is performed under the ED CLIA certificate #[id number]. Result Comment: [email or web address] Performed By: #### L [id number] ####[facility] ([facility])[address] [place] [address] Glucose [Mass/Vol] 177 mg/dL High 70-105 [facility] Comment on above: Order Comment: Waive d Testing in the ED is performed under the ED CLIA certificate #[id number]. Result Comment: [email or web address] Performed By: #### L [id number] ####[facility] ([facility])[address] [place] [address] VANCOMYCIN, TROUGHon 023 VANCOMYCIN (UG/ML) IN SER/PLAS - TROUGH 6.1 ug/mL Normal 5.0-20.0 [facility] Comment on above: Order Comment: Les meléndez collect the trough at least one hour before the 0800 dose due Performed By: #### L [id number] ####[facility] ([facility])[address] [place] [address] 30on 09-21-2023 30 Normal [facility] 30 Normal [facility] 30 Normal [facility] ANTI-XA (HEPARIN LEVEL)on HEPARIN UNFRACTIONATED (U/ML) IN PPP BY CHROMOGENIC METHOD 0.18 IU/mL Low 0.3-0.7 [facility] Comment on above: Order Comment: Check anti-Xa level every 6 hours while on heparin infusion, or per protocol. Result Comment: [place] roxaban and Apixaban will interfere with the anti Xa assay used to monitor UFH and LMWH. Performed By: #### L [id number] ####[facility] ([facility])[address] [facility] [address] HEPARIN UNFRACTIONATED (U/ML) IN PPP BY CHROMOGENIC METHOD 0.14 IU/mL Invalid Interpretation Code 0.3-0.7 [facility] Comment on above: Order Comment: Check anti-Xa level every 6 hours while on heparin infusion, or per protocol. Result Comment: [place] roxaban and Apixaban will interfere with the anti Xa assay used to monitor UFH and LMWH. Performed By: #### L [id number] ####[facility] ([facility])[address] [place] [address] HEPARIN UNFRACTIONATED (U/ML) IN PPP BY CHROMOGENIC METHOD <0.10 Invalid Interpretation Code 0.3-0.7 [facility] Comment on above: Result Comment: [place] roxaban and Apixaban will interfere with the anti Xa assay used to monitor UFH and LMWH. Performed By: #### L [id number] ####[facility] ([facility])[address] [place] [address] APTTon 09-21-2023 ACTIVATED PARTIAL THROMBOPLASTIN TIME IN PPP BY COAGULATION ASSAY 35.8 Seconds High 25.0-35.0 [facility] Comment on above: Order Comment: Basel ine aPTT before initiating heparin infusion. Result Comment: Clin ical significance of the APTT is questionable in the presence of heparin. Performed By: #### L [id number] ####[facility] ([facility])[address] [facility] [address] BASIC METABOLIC PANELon - Anion gap [Moles/Vol] 12 mmol/L Normal 7-20 [facility] Comment on above: Performed By: #### L [id number] ####[facility] ([facility])[address] [place] [address] Calcium [Mass/Vol] 7.9 mg/dL Low 8.6-10.3 [facility] Comment on above: Performed By: #### L [id number] ####[facility] ([facility])[address] [place] [address] Chloride [Moles/Vol] 100 mmol/L Normal 98-107 [facility] Comment on above: Performed By: #### L [id number] ####[facility] ([facility])[address] [place] [address] CO2 [Moles/Vol] 23 mmol/L Normal 21-31 [facility] Comment on above: Performed By: #### L [id number] ####[facility] ([facility])[address] [place] [address] Creatinine [Mass/Vol] 0.61 mg/dL Low 0.70-1.30 [facility] Comment on above: Performed By: #### L [id number] ####[facility] ([facility])[address] [place] [address] GLOMERULAR FILTRATION RATE ML/MIN/1.73 SQ M.PREDICTED 99.5 mL/min/1.73m*2 Normal >60.0 [facility] Comment on above: Result Comment: [facility]???s estimated glomerular filtration rate (eGFR) [...] of individuals. Performed By: #### L [id number] ####[facility] ([facility])[address] [place] [address] Glucose [Mass/Vol] 246 mg/dL High 70-100 [facility] Comment on above: Performed By: #### L [id number] ####[facility] ([facility])[address] [place] [address] Potassium [Moles/Vol] 3.5 mmol/L Normal 3.5-5.1 [facility] Comment on above: Performed By: #### L [id number] ####[facility] ([facility])[address] [place] [address] Sodium [Moles/Vol] 131 mmol/L Low 136-145 [facility] Comment on above: Performed By: #### L [id number] ####[facility] ([facility])[address] [place] [address] Urea nitrogen [Mass/Vol] 15 mg/dL Normal 7-25 [facility] Comment on above: Performed By: #### L [id number] ####[facility] ([facility])[address] [place] [address] UREA NITROGEN/CREATININE (MASS RATIO) IN SER/PLAS 24.6 Normal [facility] Comment on above: Performed By: #### L [id number] ####[facility] ([facility])[address] [place] [address] Anion gap [Moles/Vol] 8 mmol/L Normal 7-20 [facility] Comment on above: Performed By: #### L [id number] ####[facility] ([facility]AK[facility])[address] [place] [address] Calcium [Mass/Vol] 8.5 mg/dL Low 8.6-10.3 [facility] Comment on above: Performed By: #### L [id number] ####[facility] ([facility])[address] [place] [address] Chloride [Moles/Vol] 101 mmol/L Normal 98-107 [facility] Comment on above: Performed By: #### L [id number] ####[facility] ([facility])[address] [place] [address] CO2 [Moles/Vol] 28 mmol/L Normal 21-31 [facility] Comment on above: Performed By: #### L [id number] ####[facility] ([facility])[address] [place] [address] Creatinine [Mass/Vol] 0.49 mg/dL Low 0.70-1.30 [facility] Comment on above: Performed By: #### L [id number] ####[facility] ([facility])[address] [place] [address] GLOMERULAR FILTRATION RATE ML/MIN/1.73 SQ M.PREDICTED 106.4 mL/min/1.73m*2 Normal >60.0 [facility] Comment on above: Result Comment: [facility]???s estimated glomerular filtration rate (eGFR) [...] of individuals. Performed By: #### L [id number] ####[facility] ([facility])[address] [place] [address] Glucose [Mass/Vol] 113 mg/dL High 70-100 [facility] Comment on above: Performed By: #### L [id number] ####[facility] ([facility])[address] [place] [address] Potassium [Moles/Vol] 3.9 mmol/L Normal 3.5-5.1 [facility] Comment on above: Performed By: #### L [id number] ####[facility] ([facility])[address] [place] [address] Sodium [Moles/Vol] 133 mmol/L Low 136-145 [facility] Comment on above: Performed By: #### L [id number] ####[facility] ([facility])[address] [place] [address] Urea nitrogen [Mass/Vol] 13 mg/dL Normal 7-25 [facility] Comment on above: Performed By: #### L [id number] ####[facility] ([facility])[address] [place] [address] UREA NITROGEN/CREATININE (MASS RATIO) IN SER/PLAS 26.5 Normal [facility] Comment on above: Performed By: #### L [id number] ####[facility] ([facility])[address] [place] [address] CBC WITH AUTO DIFFERENTIALon 09-21-2023 Basophils (Bld) [#/Vol] 0.01 10*3/uL Normal 0.00-0.20 [facility] Comment on above: Performed By: #### L [id number] ####[facility] ([facility])[address] [place] [address] Basophils/100 WBC (Bld) 0.2 % Normal 0.0-1.0 [facility] Comment on above: Performed By: #### L [id number] ####[facility] ([facility])[address] [place] [address] Eosinophils (Bld) [#/Vol] 0.01 10*3/uL Normal 0.00-0.50 [facility] Comment on above: Performed By: #### L [id number] ####[facility] ([facility])[address] [place] [address] Eosinophils/100 WBC (Bld) 0.2 % Normal 0.0-6.0 [facility] Comment on above: Performed By: #### L [id number] ####[facility] ([facility])[address] [place] [address] Erythrocyte distribution width (RBC) [Ratio] 18.0 % High 11.5-15.0 [facility] Comment on above: Performed By: #### L [id number] ####[facility] ([facility])[address] [place] [address] ERYTHROCYTE MEAN CORPUSCULAR HEMOGLOBIN CONCENTRATION (G/DL) BY AUTOMATED 31.8 g/dL Low 32.0-35.0 [facility] Comment on above: Performed By: #### L [id number] ####[facility] ([facility])[address] [place] [address] Hematocrit (Bld) [Volume fraction] 31.8 % Low 39.0-55.0 [facility] Comment on above: Performed By: #### L [id number] ####[facility] ([facility])[address] [place] [address] Hemoglobin (Bld) [Mass/Vol] 10.1 g/dL Low 13.0-17.0 [facility] Comment on above: Performed By: #### L [id number] ####[facility] ([facility])[address] [place] [address] Immature granulocytes (Bld) [#/Vol] 0.03 10*3/uL Normal 0.00-0.20 [facility] Comment on above: Performed By: #### L [id number] ####[facility] ([facility])[address] [place] [address] Immature granulocytes/100 WBC (Bld) 0.5 % Normal 0.0-1.0 [facility] Comment on above: Performed By: #### L [id number] ####[facility] ([facility])[address] [place] [address] Lymphocytes (Bld) [#/Vol] 0.43 10*3/uL Low 1.20-4.00 [facility] Comment on above: Performed By: #### L [id number] ####[facility] ([facility])[address] [place] [address] Lymphocytes/100 WBC (Bld) 7.4 % Low 20.0-45.0 [facility] Comment on above: Performed By: #### L [id number] ####[facility] ([facility])[address] [place] [address] MCH (RBC) [Entitic mass] 26.9 pg Low 27.0-33.0 [facility] Comment on above: Performed By: #### L [id number] ####[facility] ([facility])[address] [place] [address] MCV (RBC) [Entitic vol] 84.8 fL Normal 82.0-98.0 [facility] Comment on above: Performed By: #### L [id number] ####[facility] ([facility])[address] [place] [address] Monocytes (Bld) [#/Vol] 0.56 10*3/uL Normal 0.10-1.00 [facility] Comment on above: Performed By: #### L [id number] ####[facility] ([facility])[address] [place] [address] Monocytes/100 WBC (Bld) 9.6 % Normal 5.0-12.0 [facility] Comment on above: Performed By: #### L [id number] ####[facility] ([facility])[address] [place] [address] Neutrophils (Bld) [#/Vol] 4.81 10*3/uL Normal 1.60-7.60 [facility] Comment on above: Performed By: #### L [id number] ####[facility] ([facility])[address] [place] [address] Neutrophils/100 WBC (Bld) 82.1 % High 40.0-72.0 [facility] Comment on above: Performed By: #### L [id number] ####[facility] ([facility])[address] [place] [address] NRBC (PER 100 WBCS) BY AUTOMATED COUNT 0.0 % Normal 0 [facility] Comment on above: Performed By: #### L [id number] ####[facility] ([facility])[address] [place] [address] PLATELETS (10*3/UL) IN BLOOD AUTOMATED COUNT 122 10*3/uL Low 150-400 [facility] Comment on above: Performed By: #### L [id number] ####[facility] ([facility])[address] [place] [address] RBC (Bld) [#/Vol] 3.75 10*6/uL Low 4.20-5.[address] [facility] Comment on above: Performed By: #### L [id number] ####[facility] ([facility])[address] [place] [address] WBC (Bld) [#/Vol] 5.85 10*3/uL Normal 4.00-10.[address] [facility] Comment on above: Performed By: #### L [id number] ####[facility] ([facility])[address] [place] [address] CONSULTon 09-21-2023 CONSULT Normal [facility] HEMOGLOBIN AND HEMATOCRIT, B LOODon 09-21-2023 Hematocrit (Bld) [Volume fraction] 30.8 % Low 39.0-55.0 [facility] Comment on above: Performed By: #### L [id number] ####[facility] ([facility])[address] [place] [address] Hemoglobin (Bld) [Mass/Vol] 10.2 g/dL Low 13.0-17.0 [facility] Comment on above: Performed By: #### L [id number] ####[facility] ([facility])[address] [place] [address] MAGNESIUMon 09-21-2023 Magnesium [Mass/Vol] 2.0 mg/dL Normal 1.9-2.7 [facility] Comment on above: Performed By: #### L [id number] ####[facility] ([facility])[address] [place] [address] Magnesium [Mass/Vol] 1.5 mg/dL Low 1.9-2.7 [facility] Comment on above: Performed By: #### L [id number] ####[facility] ([facility])[address] [place] [address] PHOSPHORUSon 09-21-2023 Magnesium [Mass/Vol] 3.0 mg/dL Normal 2.5-5.0 [facility] Comment on above: Performed By: #### L [id number] ####[facility] ([facility])[address] [place] [address] PLATELET COUNTon 09-21-2023 PLATELETS (10*3/UL) IN BLOOD AUTOMATED COUNT 144 10*3/uL Low 150-400 [facility] Comment on above: Performed By: #### L [id number] ####[facility] ([facility])[address] [place] [address] POCT GLUCOSE METER UNSOLICIT ED RESULTSon 09-21-2023 Glucose [Mass/Vol] 154 mg/dL High 70-105 [facility] Comment on above: Order Comment: Waive d Testing in the ED is performed under the ED CLIA certificate #[id number]. Result Comment: [email or web address] Performed By: #### L [id number] ####[facility] ([facility])[address] [place] [address] Glucose [Mass/Vol] 217 mg/dL High 70-105 [facility] Comment on above: Order Comment: Waive d Testing in the ED is performed under the ED CLIA certificate #[id number]. Result Comment: [email or web address] Performed By: #### L [id number] ####[facility] ([facility])[address] [place] [address] Glucose [Mass/Vol] 105 mg/dL Normal 70-105 [facility] Comment on above: Order Comment: Waive d Testing in the ED is performed under the ED CLIA certificate #[id number]. Result Comment: [email or web address] Performed By: #### L [id number] ####[facility] ([facility])[address] [place] [address] Glucose [Mass/Vol] 108 mg/dL High 70-105 [facility] Comment on above: Order Comment: Waive d Testing in the ED is performed under the ED CLIA certificate #[id number]. Result Comment: [email or web address] Performed By: #### L [id number] ####[facility] ([facility])[address] [place] [address] VANCOMYCIN, PEAKon 3 VANCOMYCIN (UG/ML) IN SER/PLAS - PEAK 12.1 ug/mL Low 20.0-50.0 [facility] Comment on above: Order Comment: Les meléndez collect the peak at least 1 hour after the infusion has been completed Performed By: #### L [id number] ####[facility] ([facility])[address] [place] [address] [id number] 09-20-2023 [id number] [facility] 30on 09-20-2023 30 The patient is Moderately Stable - Low risk of patient condition declining or worsening The patient's goals for the shift include comfort, safety The clinical goals for the shift include comfort,safety Normal [facility] ANESon 09-20-2023 ANES Normal [facility] BASIC METABOLIC PANELon 09-09 Anion gap [Moles/Vol] 9 mmol/L Normal 7-20 [facility] Comment on above: Performed By: #### L [id number] ####[facility] ([facility])[address] [place] [address] Calcium [Mass/Vol] 8.4 mg/dL Low 8.6-10.3 [facility] Comment on above: Performed By: #### L [id number] ####[facility] ([facility])[address] [place] [address] Chloride [Moles/Vol] 100 mmol/L Normal 98-107 [facility] Comment on above: Performed By: #### L [id number] ####[facility] ([facility])[address] [place] [address] CO2 [Moles/Vol] 27 mmol/L Normal 21-31 [facility] Comment on above: Performed By: #### L [id number] ####[facility] ([facility])[address] [place] [address] Creatinine [Mass/Vol] 0.51 mg/dL Low 0.70-1.30 [facility] Comment on above: Performed By: #### L [id number] ####[facility] ([facility])[address] [place] [address] GLOMERULAR FILTRATION RATE ML/MIN/1.73 SQ M.PREDICTED 105.1 mL/min/1.73m*2 Normal >60.0 [facility] Comment on above: Result Comment: [facility]???s estimated glomerular filtration rate (eGFR) [...] of individuals. Performed By: #### L [id number] ####[facility] ([facility])[address] [place] [address] Glucose [Mass/Vol] 117 mg/dL High 70-100 [facility] Comment on above: Performed By: #### L [id number] ####[facility] ([facility])[address] [place] [address] Potassium [Moles/Vol] 3.3 mmol/L Low 3.5-5.1 [facility] Comment on above: Performed By: #### L [id number] ####[facility] ([facility])[address] [place] [address] Sodium [Moles/Vol] 133 mmol/L Low 136-145 [facility] Comment on above: Performed By: #### L [id number] ####[facility] ([facility])[address] [place] [address] Urea nitrogen [Mass/Vol] 14 mg/dL Normal 7-25 [facility] Comment on above: Performed By: #### L [id number] ####[facility] ([facility])[address] [place] [address] UREA NITROGEN/CREATININE (MASS RATIO) IN SER/PLAS 27.5 Normal [facility] Comment on above: Performed By: #### L [id number] ####[facility] ([facility])[address] [place] [address] Anion gap [Moles/Vol] 11 mmol/L Normal 7-20 [facility] Comment on above: Performed By: #### L [id number] ####[facility] ([facility])[address] [place] [address] Calcium [Mass/Vol] 9.2 mg/dL Normal 8.6-10.3 [facility] Comment on above: Performed By: #### L [id number] ####[facility] ([facility])[address] [place] [address] Chloride [Moles/Vol] 102 mmol/L Normal 98-107 [facility] Comment on above: Performed By: #### L [id number] ####[facility] ([facility])[address] [place] [address] CO2 [Moles/Vol] 25 mmol/L Normal 21-31 [facility] Comment on above: Performed By: #### L [id number] ####[facility] ([facility])[address] [place] [address] Creatinine [Mass/Vol] 0.53 mg/dL Low 0.70-1.30 [facility] Comment on above: Performed By: #### L [id number] ####[facility] ([facility])[address] [place] [address] GLOMERULAR FILTRATION RATE ML/MIN/1.73 SQ M.PREDICTED 103.9 mL/min/1.73m*2 Normal >60.0 [facility] Comment on above: Result Comment: [facility]???s estimated glomerular filtration rate (eGFR) [...] of individuals. Performed By: #### L [id number] ####[facility] ([facility])[address] [place] [address] Glucose [Mass/Vol] 93 mg/dL Normal 70-100 [facility] Comment on above: Performed By: #### L [id number] ####[facility] ([facility])[address] [place] [address] Potassium [Moles/Vol] 3.7 mmol/L Normal 3.5-5.1 [facility] Comment on above: Performed By: #### L [id number] ####[facility] ([facility])[address] [place] [address] Sodium [Moles/Vol] 134 mmol/L Low 136-145 [facility] Comment on above: Performed By: #### L [id number] ####[facility] ([facility])[address] [place] [address] Urea nitrogen [Mass/Vol] 18 mg/dL Normal 7-25 [facility] Comment on above: Performed By: #### L [id number] ####[facility] ([facility])[address] [place] [address] UREA NITROGEN/CREATININE (MASS RATIO) IN SER/PLAS 34.0 Normal [facility] Comment on above: Performed By: #### L [id number] ####[facility] ([facility])[address] [place] [address] CBCon 09-20-2023 Erythrocyte distribution width (RBC) [Ratio] 18.0 % High 11.5-15.0 [facility] Comment on above: Performed By: #### L [id number] ####[facility] ([facility])[address] [place] [address] ERYTHROCYTE MEAN CORPUSCULAR HEMOGLOBIN CONCENTRATION (G/DL) BY AUTOMATED 31.9 g/dL Low 32.0-35.0 [facility] Comment on above: Performed By: #### L [id number] ####[facility] ([facility])[address] [place] [address] Hematocrit (Bld) [Volume fraction] 33.5 % Low 39.0-55.0 [facility] Comment on above: Performed By: #### L [id number] ####[facility] ([facility])[address] [place] [address] Hemoglobin (Bld) [Mass/Vol] 10.7 g/dL Low 13.0-17.0 [facility] Comment on above: Performed By: #### L [id number] ####[facility] ([facility])[address] [place] [address] MCH (RBC) [Entitic mass] 27.1 pg Normal 27.0-33.0 [facility] Comment on above: Performed By: #### L [id number] ####[facility] ([facility])[address] [place] [address] MCV (RBC) [Entitic vol] 84.8 fL Normal 82.0-98.0 [facility] Comment on above: Performed By: #### L [id number] ####[facility] ([facility])[address] [place] [address] PLATELETS (10*3/UL) IN BLOOD AUTOMATED COUNT 142 10*3/uL Low 150-400 [facility] Comment on above: Performed By: #### L [id number] ####[facility] ([facility])[address] [place] [address] RBC (Bld) [#/Vol] 3.95 10*6/uL Low 4.20-5.[address] [facility] Comment on above: Performed By: #### L [id number] ####[facility] ([facility])[address] [place] [address] WBC (Bld) [#/Vol] 8.35 10*3/uL Normal 4.00-10.[address] [facility] Comment on above: Performed By: #### L [id number] ####[facility] ([facility])[address] [place] [address] CBC WITH AUTO DIFFERENTIALon 09-20-2023 Basophils (Bld) [#/Vol] 0.00 10*3/uL Normal 0.00-0.20 [facility] Comment on above: Performed By: #### L [id number] ####[facility] ([facility])[address] [place] [address] Basophils/100 WBC (Bld) 0.0 % Normal 0.0-1.0 [facility] Comment on above: Performed By: #### L [id number] ####[facility] ([facility])[address] [place] [address] Eosinophils (Bld) [#/Vol] 0.00 10*3/uL Normal 0.00-0.50 [facility] Comment on above: Performed By: #### L [id number] ####[facility] ([facility])[address] [place] [address] Eosinophils/100 WBC (Bld) 0.0 % Normal 0.0-6.0 [facility] Comment on above: Performed By: #### L [id number] ####[facility] ([facility])[address] [place] [address] Erythrocyte distribution width (RBC) [Ratio] 17.4 % High 11.5-15.0 [facility] Comment on above: Performed By: #### L [id number] ####[facility] ([facility])[address] [place] [address] ERYTHROCYTE MEAN CORPUSCULAR HEMOGLOBIN CONCENTRATION (G/DL) BY AUTOMATED 32.1 g/dL Normal 32.0-35.0 [facility] Comment on above: Performed By: #### L [id number] ####[facility] ([facility])[address] [place] [address] Hematocrit (Bld) [Volume fraction] 36.5 % Low 39.0-55.0 [facility] Comment on above: Performed By: #### L [id number] ####[facility] ([facility])[address] [place] [address] Hemoglobin (Bld) [Mass/Vol] 11.7 g/dL Low 13.0-17.0 [facility] Comment on above: Performed By: #### L [id number] ####[facility] ([facility])[address] [place] [address] Immature granulocytes (Bld) [#/Vol] 0.03 10*3/uL Normal 0.00-0.20 [facility] Comment on above: Performed By: #### L [id number] ####[facility] ([facility])[address] [place] [address] Immature granulocytes/100 WBC (Bld) 0.4 % Normal 0.0-1.0 [facility] Comment on above: Performed By: #### L [id number] ####[facility] ([facility])[address] [place] [address] Lymphocytes (Bld) [#/Vol] 0.37 10*3/uL Low 1.20-4.00 [facility] Comment on above: Performed By: #### L [id number] ####[facility] ([facility])[address] [place] [address] Lymphocytes/100 WBC (Bld) 4.9 % Low 20.0-45.0 [facility] Comment on above: Performed By: #### L [id number] ####[facility] ([facility])[address] [place] [address] MCH (RBC) [Entitic mass] 27.4 pg Normal 27.0-33.0 [facility] Comment on above: Performed By: #### L [id number] ####[facility] ([facility])[address] [place] [address] MCV (RBC) [Entitic vol] 85.5 fL Normal 82.0-98.0 [facility] Comment on above: Performed By: #### L [id number] ####[facility] ([facility])[address] [place] [address] Monocytes (Bld) [#/Vol] 0.48 10*3/uL Normal 0.10-1.00 [facility] Comment on above: Performed By: #### L [id number] ####[facility] ([facility])[address] [place] [address] Monocytes/100 WBC (Bld) 6.3 % Normal 5.0-12.0 [facility] on above: Performed By: #### L [id number] ####[facility] ([facility])[address] [place] [address] Neutrophils (Bld) [#/Vol] 6.73 10*3/uL Normal 1.60-7.60 [facility] Comment on above: Performed By: #### L [id number] ####[facility] ([facility])[address] [place] [address] Neutrophils/100 WBC (Bld) 88.4 % High 40.0-72.0 [facility] Comment on above: Performed By: #### L [id number] ####[facility] ([facility])[address] [place] [address] NRBC (PER 100 WBCS) BY AUTOMATED COUNT 0.0 % Normal 0 [facility] Comment on above: Performed By: #### L [id number] ####[facility] ([facility])[address] [place] [address] PLATELETS (10*3/UL) IN BLOOD AUTOMATED COUNT 122 10*3/uL Low 150-400 [facility] Comment on above: Performed By: #### L [id number] ####[facility] ([facility])[address] [place] [address] RBC (Bld) [#/Vol] 4.27 10*6/uL Normal 4.20-5.[address] [facility] Comment on above: Performed By: #### L [id number] ####[facility] ([facility])[address] [place] [address] WBC (Bld) [#/Vol] 7.61 10*3/uL Normal 4.00-10.[address] [facility] Comment on above: Performed By: #### L [id number] ####[facility] ([facility])[address] [place] [address] CONSULTon 09-20-2023 CONSULT Normal [facility] CONSULT Normal [facility] DEVICE CULTUREon 09-20-2023 Bacteria identified Cx Nom (Unsp spec) No growth at 3 days [facility] Comment on above: Order Comment: Pre-o p diagnosis:Peripheral artery disease (CMS/HCC) [I73.9] Performed By: #### D EVICE CULTURE ####[facility] ([facility])[address] [place] [address] Bacteria identified Cx Nom (Unsp spec) No growth at 3 days [facility] Comment on above: Order Comment: Pre-o p diagnosis:Peripheral artery disease (CMS/HCC) [I73.9] Performed By: #### D EVICE CULTURE ####[facility] ([facility])[address] [place] [address] MAGNESIUMon 09-20-2023 Magnesium [Mass/Vol] 1.5 mg/dL Low 1.9-2.7 [facility] Comment on above: Performed By: #### L [id number] ####[facility] ([facility])[address] [place] [address] Magnesium [Mass/Vol] 1.9 mg/dL Normal 1.9-2.7 [facility] Comment on above: Performed By: #### L [id number] ####[facility] ([facility])[address] [place] [address] NURSNOTEon 09-20-2023 NURSNOTE Normal [facility] OPNOTEon 09-20-2023 OPNOTE Normal [facility] PHOSPHORUSon 09-20-2023 Magnesium [Mass/Vol] 2.9 mg/dL Normal 2.5-5.0 [facility] Comment on above: Performed By: #### L [id number] ####[facility] ([facility])[address] [place] [address] Magnesium [Mass/Vol] 3.0 mg/dL Normal 2.5-5.0 [facility] Comment on above: Performed By: #### L [id number] ####[facility] ([facility])[address] [place] [address] POCT ACTIVATED CLOTTING TIME UNSOLICITED RESULTSon 09-20-2023 POC ACTIVATED CLOTTING TIME 154 sec High 82-152 [facility] Comment on above: Performed By: #### L [id number] ####[facility] ([facility])[address] [place] [address] POC ACTIVATED CLOTTING TIME 199 sec High 82-152 [facility] Comment on above: Performed By: #### L [id number] ####[facility] ([facility])[address] [place] [address] POC ACTIVATED CLOTTING TIME 222 sec High 82-152 [facility] Comment on above: Performed By: #### L [id number] ####[facility] ([facility])[address] [place] [address] POC ACTIVATED CLOTTING TIME 154 sec High 82-152 [facility] Comment on above: Performed By: #### L [id number] ####[facility] ([facility])[address] [place] [address] POCT GLUCOSE METER UNSOLICIT ED RESULTSon 09-20-2023 Glucose [Mass/Vol] 156 mg/dL High 70-105 [facility] Comment on above: Order Comment: Waive d Testing in the ED is performed under the ED CLIA certificate #[id number]. Result Comment: [email or web address] orc Performed By: #### L [id number] ####[facility] ([facility])[address] [place] [address] Glucose [Mass/Vol] 105 mg/dL Normal 70-105 [facility] Comment on above: Order Comment: Waive d Testing in the ED is performed under the ED CLIA certificate #[id number]. Result Comment: [email or web address] Performed By: #### L [id number] ####[facility] ([facility])[address] [place] [address] POCT PERFUSION PANEL UNSOLIC ITED RESULTSon 09-20-2023 CO2 [Moles/Vol] 28.0 mmol/L Normal 21.0-29.0 [facility] Comment on above: Performed By: #### L [id number] ####[facility] ([facility])[address] [place] [address] Glucose [Mass/Vol] 152 mg/dL High 70-105 [facility] Comment on above: Performed By: #### L [id number] ####[facility] ([facility])[address] [place] [address] HCO3 (Bld) [Moles/Vol] 27.1 mmol/L Normal 23.0-28.0 [facility] Comment on above: Performed By: #### L [id number] ####[facility] ([facility])[address] [place] [address] Hematocrit (Bld) [Volume fraction] 32 % Low 38-51 [facility] Comment on above: Performed By: #### L [id number] ####[facility] ([facility])[address] [place] [address] Hemoglobin (Bld) [Mass/Vol] 10.9 g/dL Low 12.0-17.0 [facility] Comment on above: Performed By: #### L [id number] ####[facility] ([facility])[address] [place] [address] POCT BASE EXCESS 3.0 mmol/L Normal -2.0-3.0 [facility] Comment on above: Performed By: #### L [id number] ####[facility] ([facility])[address] [place] [address] POCT IONIZED CALCIUM 1.27 mmol/L Normal 1.12-1.32 [facility] Comment on above: Performed By: #### L [id number] ####[facility] ([facility])[address] [place] [address] POCT PCO2 40.5 mmHg Low 41.0-51.0 [facility] Comment on above: Performed By: #### L [id number] ####[facility] ([facility])[address] [place] [address] POCT PH 7.43 High 7.31-7.41 [facility] Comment on above: Performed By: #### L [id number] ####[facility] ([facility])[address] [place] [address] POCT PO2 280 mmHg High 80-105 [facility] Comment on above: Performed By: #### L [id number] ####[facility] ([facility])[address] [place] [address] POCT SO2 100 % High 95-98 [facility] Comment on above: Performed By: #### L [id number] ####[facility] ([facility])[address] [place] [address] Potassium [Moles/Vol] 3.0 mmol/L Low 3.5-4.9 [facility] Comment on above: Performed By: #### L [id number] ####[facility] ([facility])[address] [place] [address] Sodium [Moles/Vol] 135 mmol/L Low 138.0-146.[address] [facility] Comment on above: Performed By: #### L [id number] ####[facility] ([facility])[address] [place] [address] CO2 [Moles/Vol] 29.0 mmol/L Normal 21.0-29.0 [facility] Comment on above: Performed By: #### L [id number] ####[facility] ([facility])[address] [place] [address] Glucose [Mass/Vol] 122 mg/dL High 70-105 [facility] Comment on above: Performed By: #### L [id number] ####[facility] ([facility])[address] [place] [address] HCO3 (Bld) [Moles/Vol] 27.9 mmol/L Normal 23.0-28.0 [facility] Comment on above: Performed By: #### L [id number] ####[facility] ([facility])[address] [place] [address] Hematocrit (Bld) [Volume fraction] 34 % Low 38-51 [facility] Comment on above: Performed By: #### L [id number] ####[facility] ([facility])[address] [place] [address] Hemoglobin (Bld) [Mass/Vol] 11.6 g/dL Low 12.0-17.0 [facility] Comment on above: Performed By: #### L [id number] ####[facility] ([facility])[address] [place] [address] POCT BASE EXCESS 4.0 mmol/L High -2.0-3.0 [facility] Comment on above: Performed By: #### L [id number] ####[facility] ([facility])[address] [place] [address] POCT IONIZED CALCIUM 1.11 mmol/L Low 1.12-1.32 [facility] Comment on above: Performed By: #### L [id number] ####[facility] ([facility])[address] [place] [address] POCT PCO2 38.6 mmHg Low 41.0-51.0 [facility] Comment on above: Performed By: #### L [id number] ####[facility] ([facility])[address] [place] [address] POCT PH 7.47 High 7.31-7.41 [facility] Comment on above: Performed By: #### L [id number] ####[facility] ([facility])[address] [place] [address] POCT PO2 284 mmHg High 80-105 [facility] Comment on above: Performed By: #### L [id number] ####[facility] ([facility])[address] [place] [address] POCT SO2 100 % High 95-98 [facility] Comment on above: Performed By: #### L [id number] ####[facility] ([facility])[address] [place] [address] Potassium [Moles/Vol] 3.1 mmol/L Low 3.5-4.9 [facility] Comment on above: Performed By: #### L [id number] ####[facility] ([facility])[address] [place] [address] Sodium [Moles/Vol] 137 mmol/L Low 138.0-146.[address] [facility] Comment on above: Performed By: #### L [id number] ####[facility] ([facility])[address] [place] [address] PROTIME-INRon 09-20-2023 INR IN PPP BY COAGULATION ASSAY 1.17 High 0.90-1.10 [facility] Comment on above: Result Comment: ACCC P [...] CHEST 1995;108:[id number]. Performed By: #### L [id number] ####[facility] ([facility])[address] [place] [address] PROTHROMBIN TIME (PT) IN PPP BY COAGULATION ASSAY 14.9 Seconds High 12.3-14.8 [facility] Comment on above: Performed By: #### L [id number] ####[facility] ([facility])[address] [place] [address] TISSUE CULTUREon 09-20-2023 GRAM STAIN RESULT Normal [facility] Comment on above: Order Comment: Pre-o p diagnosis:Peripheral artery disease (CMS/HCC) [I73.9]Rare Growth Skin Rita Result Comment: Many Polymorphonuclear leukocytesNo organisms seen Performed By: #### L [id number] ####[facility] ([facility] [address] 30on 09-19-2023 30 Normal [facility] ANESon 09-19-2023 ANES Normal [facility] BASIC METABOLIC PANELon 09-09 Anion gap [Moles/Vol] 7 mmol/L Normal 7-20 [facility] Comment on above: Performed By: #### L [id number] ####[facility] ([facility])[address] [place] [address] Calcium [Mass/Vol] 8.8 mg/dL Normal 8.6-10.3 [facility] Comment on above: Performed By: #### L [id number] ####[facility] ([facility])[address] [place] [address] Chloride [Moles/Vol] 103 mmol/L Normal 98-107 [facility] Comment on above: Performed By: #### L [id number] ####[facility] ([facility])[address] [place] [address] CO2 [Moles/Vol] 28 mmol/L Normal 21-31 [facility] Comment on above: Performed By: #### L [id number] ####[facility] ([facility])[address] [place] [address] Creatinine [Mass/Vol] 0.46 mg/dL Low 0.70-1.30 [facility] Comment on above: Performed By: #### L [id number] ####[facility] ([facility])[address] [place] [address] GLOMERULAR FILTRATION RATE ML/MIN/1.73 SQ M.PREDICTED 108.4 mL/min/1.73m*2 Normal >60.0 [facility] Comment on above: Result Comment: [facility]???s estimated glomerular filtration rate (eGFR) [...] of individuals. Performed By: #### L [id number] ####[facility] ([facility])[address] [place] [address] Glucose [Mass/Vol] 166 mg/dL High 70-100 [facility] Comment on above: Performed By: #### L [id number] ####[facility] ([facility])[address] [place] [address] Potassium [Moles/Vol] 3.8 mmol/L Normal 3.5-5.1 [facility] Comment on above: Performed By: #### L [id number] ####[facility] ([facility])[address] [place] [address] Sodium [Moles/Vol] 134 mmol/L Low 136-145 [facility] Comment on above: Performed By: #### L [id number] ####[facility] ([facility])[address] [place] [address] Urea nitrogen [Mass/Vol] 18 mg/dL Normal 7-25 [facility] Comment on above: Performed By: #### L [id number] ####[facility] ([facility])[address] [place] [address] UREA NITROGEN/CREATININE (MASS RATIO) IN SER/PLAS 39.1 Normal [facility] Comment on above: Performed By: #### L [id number] ####[facility] ([facility])[address] [place] [address] CBC WITH AUTO DIFFERENTIALon 09-19-2023 Basophils (Bld) [#/Vol] 0.00 10*3/uL Normal 0.00-0.20 [facility] Comment on above: Performed By: #### L [id number] ####[facility] ([facility])[address] [place] [address] Basophils/100 WBC (Bld) 0.0 % Normal 0.0-1.0 [facility] Comment on above: Performed By: #### L [id number] ####[facility] ([facility])[address] [place] [address] Eosinophils (Bld) [#/Vol] 0.00 10*3/uL Normal 0.00-0.50 [facility] Comment on above: Performed By: #### L [id number] ####[facility] ([facility])[address] [place] [address] Eosinophils/100 WBC (Bld) 0.0 % Normal 0.0-6.0 [facility] Comment on above: Performed By: #### L [id number] ####[facility] ([facility])[address] [place] [address] Erythrocyte distribution width (RBC) [Ratio] 18.8 % High 11.5-15.0 [facility] Comment on above: Performed By: #### L [id number] ####[facility] ([facility])[address] [place] [address] ERYTHROCYTE MEAN CORPUSCULAR HEMOGLOBIN CONCENTRATION (G/DL) BY AUTOMATED 32.5 g/dL Normal 32.0-35.0 [facility] Comment on above: Performed By: #### L [id number] ####[facility] ([facility])[address] [place] [address] Hematocrit (Bld) [Volume fraction] 24.9 % Low 39.0-55.0 [facility] Comment on above: Performed By: #### L [id number] ####[facility] ([facility])[address] [place] [address] Hemoglobin (Bld) [Mass/Vol] 8.1 g/dL Low 13.0-17.0 [facility] Comment on above: Performed By: #### L [id number] ####[facility] ([facility])[address] [place] [address] Immature granulocytes (Bld) [#/Vol] 0.02 10*3/uL Normal 0.00-0.20 [facility] Comment on above: Performed By: #### L [id number] ####[facility] ([facility])[address] [place] [address] Immature granulocytes/100 WBC (Bld) 0.4 % Normal 0.0-1.0 [facility] Comment on above: Performed By: #### L [id number] ####[facility] ([facility])[address] [place] [address] Lymphocytes (Bld) [#/Vol] 0.14 10*3/uL Low 1.20-4.00 [facility] Comment on above: Performed By: #### L [id number] ####[facility] ([facility])[address] [place] [address] Lymphocytes/100 WBC (Bld) 2.7 % Low 20.0-45.0 [facility] Comment on above: Performed By: #### L [id number] ####[facility] ([facility])[address] [place] [address] MCH (RBC) [Entitic mass] 27.3 pg Normal 27.0-33.0 [facility] Comment on above: Performed By: #### L [id number] ####[facility] ([facility])[address] [place] [address] MCV (RBC) [Entitic vol] 83.8 fL Normal 82.0-98.0 [facility] Comment on above: Performed By: #### L [id number] ####[facility] ([facility])[address] [place] [address] Monocytes (Bld) [#/Vol] 0.09 10*3/uL Low 0.10-1.00 [facility] Comment on above: Performed By: #### L [id number] ####[facility] ([facility])[address] [place] [address] Monocytes/100 WBC (Bld) 1.8 % Low 5.0-12.0 [facility] Comment on above: Performed By: #### L [id number] ####[facility] ([facility])[address] [place] [address] Neutrophils (Bld) [#/Vol] 4.87 10*3/uL Normal 1.60-7.60 [facility] Comment on above: Performed By: #### L [id number] ####[facility] ([facility])[address] [place] [address] Neutrophils/100 WBC (Bld) 95.1 % High 40.0-72.0 [facility] Comment on above: Performed By: #### L [id number] ####[facility] ([facility])[address] [place] [address] NRBC (PER 100 WBCS) BY AUTOMATED COUNT 0.0 % Normal 0 [facility] Comment on above: Performed By: #### L [id number] ####[facility] ([facility])[address] [place] [address] PLATELETS (10*3/UL) IN BLOOD AUTOMATED COUNT 105 10*3/uL Low 150-400 [facility] Comment on above: Performed By: #### L [id number] ####[facility] ([facility])[address] [place] [address] RBC (Bld) [#/Vol] 2.97 10*6/uL Low 4.20-5.[address] [facility] Comment on above: Performed By: #### L [id number] ####[facility] ([facility])[address] [place] [address] WBC (Bld) [#/Vol] 5.12 10*3/uL Normal 4.00-10.[address] [facility] Comment on above: Performed By: #### L [id number] ####[facility] ([facility])[address] [place] [address] MAGNESIUMon 09-19-2023 Magnesium [Mass/Vol] 1.7 mg/dL Low 1.9-2.7 [facility] Comment on above: Performed By: #### L [id number] ####[facility] ([facility])[address] [place] [address] MRSA/MSSA DNA NASALon 2022 MRSA DNA Negative Normal Negative [facility] Comment on above: Order Comment: Testi ng [...] preclude nasal colonization. Performed By: #### L [id number] ####[facility] ([facility])[address] [place] [address] MSSA DNA Negative Normal Negative [facility] Comment on above: Order Comment: Testi ng [...] preclude nasal colonization. Performed By: #### L [id number] ####[facility] ([facility])[address] [place] [address] PHOSPHORUSon 09-19-2023 Magnesium [Mass/Vol] 3.1 mg/dL Normal 2.5-5.0 [facility] Comment on above: Performed By: #### L [id number] ####[facility] ([facility])[address] [place] [address] POCT GLUCOSE METER UNSOLICIT ED RESULTSon 09-19-2023 Glucose [Mass/Vol] 244 mg/dL High 70-105 [facility] Comment on above: Order Comment: Waive d Testing in the ED is performed under the ED CLIA certificate #[id number]. Result Comment: [email or web address] Performed By: #### L [id number] ####[facility] ([facility])[address] [place] [address] Glucose [Mass/Vol] 140 mg/dL High 70-105 [facility] Comment on above: Order Comment: Waive d Testing in the ED is performed under the ED CLIA certificate #[id number]. Result Comment: [email or web address] Performed By: #### L [id number] ####[facility] ([facility])[address] [place] [address] Glucose [Mass/Vol] 192 mg/dL High 70-105 [facility] Comment on above: Order Comment: Waive d Testing in the ED is performed under the ED CLIA certificate #[id number]. Result Comment: elac umsky Performed By: #### L [id number] ####[facility] ([facility])[address] [place] [address] Glucose [Mass/Vol] 163 mg/dL High 70-105 [facility] Comment on above: Order Comment: Waive d Testing in the ED is performed under the ED CLIA certificate #[id number]. Result Comment: elac umsky Performed By: #### L [id number] ####[facility] ([facility])[address] [place] [address] TYPE AND SCREENon 09-19-2023 AB SCREEN Negative Normal [facility] Comment on above: Performed By: #### L [id number] ####[facility], ABO group Nom (Bld) O Normal [facility] Comment on above: Performed By: #### L [id number] ####[facility], RH TYPE IN BLOOD Positive Normal [facility] Comment on above: Performed By: #### L [id number] ####[facility], 30on 09-18-2023 30 Normal [facility] APTTon 09-18-2023 ACTIVATED PARTIAL THROMBOPLASTIN TIME IN PPP BY COAGULATION ASSAY 35.0 Seconds Normal 25.0-35.0 [facility] Comment on above: Result Comment: Clin ical significance of the APTT is questionable in the presence of heparin. Performed By: #### L [id number] ####[facility] ([facility])[address] [place] [address] BASIC METABOLIC PANELon 09-09 Anion gap [Moles/Vol] 8 mmol/L Normal 7-20 [facility] Comment on above: Performed By: #### L [id number] ####[facility] ([facility])[address] [place] [address] Calcium [Mass/Vol] 8.4 mg/dL Low 8.6-10.3 [facility] Comment on above: Performed By: #### L [id number] ####[facility] ([facility])[address] [place] [address] Chloride [Moles/Vol] 99 mmol/L Normal 98-107 [facility] Comment on above: Performed By: #### L [id number] ####[facility] ([facility])[address] [place] [address] CO2 [Moles/Vol] 28 mmol/L Normal 21-31 [facility] Comment on above: Performed By: #### L [id number] ####[facility] ([facility])[address] [place] [address] Creatinine [Mass/Vol] 0.52 mg/dL Low 0.70-1.30 [facility] Comment on above: Performed By: #### L [id number] ####[facility] ([facility])[address] [place] [address] GLOMERULAR FILTRATION RATE ML/MIN/1.73 SQ M.PREDICTED 104.5 mL/min/1.73m*2 Normal >60.0 [facility] Comment on above: Result Comment: [facility]???s estimated glomerular filtration rate (eGFR) [...] of individuals. Performed By: #### L [id number] ####[facility] ([facility])[address] [place] [address] Glucose [Mass/Vol] 193 mg/dL High 70-100 [facility] Comment on above: Performed By: #### L [id number] ####[facility] ([facility])[address] [place] [address] Potassium [Moles/Vol] 3.7 mmol/L Normal 3.5-5.1 [facility] Comment on above: Performed By: #### L [id number] ####[facility] ([facility])[address] [place] [address] Sodium [Moles/Vol] 131 mmol/L Low 136-145 [facility] Comment on above: Performed By: #### L [id number] ####[facility] ([facility])[address] [place] [address] Urea nitrogen [Mass/Vol] 19 mg/dL Normal 7-25 [facility] Comment on above: Performed By: #### L [id number] ####[facility] ([facility])[address] [place] [address] UREA NITROGEN/CREATININE (MASS RATIO) IN SER/PLAS 36.5 Normal [facility] Comment on above: Performed By: #### L [id number] ####[facility] ([facility])[address] [place] [address] CBC WITH AUTO DIFFERENTIALon 09-18-2023 Basophils (Bld) [#/Vol] 0.00 10*3/uL Normal 0.00-0.20 [facility] Comment on above: Performed By: #### L [id number] ####[facility] ([facility])[address] [place], [place] [address] Basophils/100 WBC (Bld) 0.0 % Normal 0.0-1.0 [facility] Comment on above: Performed By: #### L [id number] ####[facility] ([facility])[address] [place] [address] Eosinophils (Bld) [#/Vol] 0.00 10*3/uL Normal 0.00-0.50 [facility] Comment on above: Performed By: #### L [id number] ####[facility] ([facility])[address] [place] [address] Eosinophils/100 WBC (Bld) 0.0 % Normal 0.0-6.0 [facility] Comment on above: Performed By: #### L [id number] ####[facility] ([facility])[address] [place] [address] Erythrocyte distribution width (RBC) [Ratio] 19.1 % High 11.5-15.0 [facility] Comment on above: Performed By: #### L [id number] ####[facility] ([facility])[address] [place] [address] ERYTHROCYTE MEAN CORPUSCULAR HEMOGLOBIN CONCENTRATION (G/DL) BY AUTOMATED 31.9 g/dL Low 32.0-35.0 [facility] Comment on above: Performed By: #### L [id number] ####[facility] ([facility])[address] [place] [address] Hematocrit (Bld) [Volume fraction] 25.4 % Low 39.0-55.0 [facility] Comment on above: Performed By: #### L [id number] ####[facility] ([facility])[address] [place] [address] Hemoglobin (Bld) [Mass/Vol] 8.1 g/dL Low 13.0-17.0 [facility] Comment on above: Performed By: #### L [id number] ####[facility] ([facility])[address] [place] [address] Immature granulocytes (Bld) [#/Vol] 0.03 10*3/uL Normal 0.00-0.20 [facility] Comment on above: Performed By: #### L [id number] ####[facility] ([facility])[address] [place] [address] Immature granulocytes/100 WBC (Bld) 0.3 % Normal 0.0-1.0 [facility] Comment on above: Performed By: #### L [id number] ####[facility] ([facility])[address] [place] [address] Lymphocytes (Bld) [#/Vol] 0.22 10*3/uL Low 1.20-4.00 [facility] Comment on above: Performed By: #### L [id number] ####[facility] ([facility])[address] [place] [address] Lymphocytes/100 WBC (Bld) 2.1 % Low 20.0-45.0 [facility] Comment on above: Performed By: #### L [id number] ####[facility] ([facility])[address] [place] [address] MCH (RBC) [Entitic mass] 26.8 pg Low 27.0-33.0 [facility] Comment on above: Performed By: #### L [id number] ####[facility] ([facility])[address] [place] [address] MCV (RBC) [Entitic vol] 84.1 fL Normal 82.0-98.0 [facility] Comment on above: Performed By: #### L [id number] ####[facility] ([facility])[address] [place] [address] Monocytes (Bld) [#/Vol] 0.12 10*3/uL Normal 0.10-1.00 [facility] Comment on above: Performed By: #### L [id number] ####[facility] ([facility])[address] [place] [address] Monocytes/100 WBC (Bld) 1.2 % Low 5.0-12.0 [facility] Comment on above: Performed By: #### L [id number] ####[facility] ([facility])[address] [place] [address] Neutrophils (Bld) [#/Vol] 9.88 10*3/uL High 1.60-7.60 [facility] Comment on above: Performed By: #### L [id number] ####[facility] ([facility])[address] [place] [address] Neutrophils/100 WBC (Bld) 96.4 % High 40.0-72.0 [facility] Comment on above: Performed By: #### L [id number] ####[facility] ([facility])[address] [place], [place] [address] NRBC (PER 100 WBCS) BY AUTOMATED COUNT 0.0 % Normal 0 [facility] Comment on above: Performed By: #### L [id number] ####[facility] ([facility])[address] [place] [address] PLATELETS (10*3/UL) IN BLOOD AUTOMATED COUNT 125 10*3/uL Low 150-400 [facility] Comment on above: Performed By: #### L [id number] ####[facility] ([facility])[address] [place] [address] RBC (Bld) [#/Vol] 3.02 10*6/uL Low 4.20-5.[address] [facility] Comment on above: Performed By: #### L [id number] ####[facility] ([facility])[address] [place] [address] WBC (Bld) [#/Vol] 10.25 10*3/uL Normal 4.00-10.60 [facility] Comment on above: Performed By: #### L [id number] ####[facility] ([facility])[address] [place] [address] CTA AORTA AND BILATERAL ILIO FEMORAL RUNOFF W AND/OR WO IV CONTRASTon 09-18-2023 CTA AORTA AND BILATERAL ILIOFEMORAL RUNOFF W AND/OR WO IV CONTRAST Normal [facility] CTA CHEST W AND/OR WO IV CON TRASTon 09-18-2023 CTA CHEST W AND/OR WO IV CONTRAST Normal [facility] EDNURSon 09-18-2023 EDNURS Normal [facility] EDPROVon 09-18-2023 EDPROV Invalid Interpretation Code [facility] HPon 09-18-2023 HP Normal [facility] LACTIC ACID WITH 4 HOUR REFL EXon 09-18-2023 LACTATE (MMOL/L) IN SER/PLAS 1.6 mmol/L Normal 0.5-2.2 [facility] Comment on above: Performed By: #### L [id number] ####[facility] ([facility])[address] [place] [address] MAGNESIUMon 09-18-2023 Magnesium [Mass/Vol] 1.6 mg/dL Low 1.9-2.7 [facility] Comment on above: Performed By: #### L [id number] ####[facility] ([facility])[address] [place] [address] PHOSPHORUSon 09-18-2023 Magnesium [Mass/Vol] 3.1 mg/dL Normal 2.5-5.0 [facility] Comment on above: Performed By: #### L [id number] ####[facility] ([facility])[address] [place] [address] POCT GLUCOSE METER UNSOLICIT ED RESULTSon 09-18-2023 Glucose [Mass/Vol] 228 mg/dL High 70-105 [facility] Comment on above: Order Comment: Waive d Testing in the ED is performed under the ED CLIA certificate #[id number]. Result Comment: [email or web address] Performed By: #### L [id number] ####[facility] [employer])[address] [place] [address] PROTIME-INRon 09-18-2023 INR IN PPP BY COAGULATION ASSAY 1.27 High 0.90-1.10 [facility] Comment on above: Result Comment: ACCC P [...] CHEST 1995;108:231S-246S. Performed By: #### L [id number] ####[facility] [employer])[address] [place] [address] PROTHROMBIN TIME (PT) IN PPP BY COAGULATION ASSAY 16.0 Seconds High 12.3-14.8 [facility] Comment on above: Performed By: #### L [id number] ####[facility] [employer])[address] [place] [address] Follow-Upon 08-31-2023 Follow-Up Normal [facility] 36on 08-12-2023 36 Normal [facility] Telephoneon 08-12-2023 Telephone Normal [facility] Physician Referralon 023 Physician Referral [id number]#1.00TIF F Normal [facility] Follow-Upon 06-20-2023 Follow-Up Normal [facility] Follow-Upon 05-16-2023 Follow-Up Normal [facility] Consent for Treatmenton 04-11 Consent for Treatment [id number]#1.00CD: 127 Normal [facility] Heart and Vascular Office/Cl inic Noteon 05-09-2023 Heart and Vascular Office/Clinic Note Normal [facility] Comment on above: Result Comment: Elec tronically Signed By: Erwin Hurd MD\.br\Date and Time Signed: 05/09/23 09:55 EDT Consent for Anesthesiaon Consent for Anesthesia [id number]#1.00C D:127 Normal [facility] IntraOperative Documentson 0 04-19-2023 IntraOperative Documents [id number]#1.00CD: 127 [facility] IntraOperative Documentson 0 04-15-2023 IntraOperative Documents [id number]#1.00CD :127 [facility] Operative Reporton Operative Report Normal [facility] Comment on above: Result Comment: Elec tronically Signed By: Erwin Hurd MD\.br\Date and Time Signed: 04/14/23 12:35 EDT Progress Note-Physicianon Progress Note-Physician Normal [facility] Comment on above: Result Comment: Elec tronically Signed By: MD Horner Ahmad F\.br\Date and Time Signed: 04/14/23 19:33 EDT Progress Note-Physician Normal [facility] Comment on above: Result Comment: Elec tronically Signed By: MD Horner Ahmad F\.br\Date and Time Signed: 04/14/23 19:28 EDT Consent for Anesthesiaon Consent for Anesthesia [id number]#1.00C D:127 Normal [facility] Discharge Instructionson Discharge Instructions [id number]#1.00C D:127 Normal [facility] Main OR Intraoperative Recor don 04-13-2023 Main OR Intraoperative Record Normal [facility] Capillary Glucose POCon Glucose [Mass/Vol] 97 mg/dL Normal 55-99 [facility] Comment on above: Result Comment: Sayra feldman MeterNo Coverage Given Performed By: #### 2 [id number] ####[facility] [address] [place] [address] Consent for Procedure/Surger yon 04-11-2023 Consent for Procedure/Surgery [id number]#1.00CD :127 Normal [facility] Consent for Treatmenton Consent for Treatment [id number]#1.00CD: 127 Normal [facility] Discharge Instructionson Discharge Instructions Normal [facility] Comment on above: Result Comment: Elec tronically Signed By: Rakesh GUARDADO, Karissa Mckeon\.br\Date and Time Signed: 04/11/23 15:05 EDT H&P Updateon 04-11-2023 H&P Update [id number]#1.00CD :127 Normal [facility] Main OR PACU I Recordon Main OR PACU I Record Normal [facility] Main OR Preoperative Recordo n 04-11-2023 Main OR Preoperative Record Normal [facility] Monitor Recordon 04-11-2023 Monitor Record [id number]#1.00CD :127 Normal [facility] PT & PTTon 04-11-2023 aPTT Coag (PPP) [Time] 38.1 second(s) High 25.1-36.5 [facility] Comment on above: Result Comment: [...] the same coagulation reagent and instrumentation as [facility]. Currently there are no coagulation studies available worldwide for children to 14 days, and no normal ranges. Heparin therapeutic range (represented by Anti-Factor Xa activity of 0.2 - 0.4 U/mL) corresponds to PTT of 56.6 - 109.0 sec. Performed By: #### 1 [id number] ####[facility] [address] [facility] [place] [address] INR Coag (PPP) [Relative time] 1.2 {INR} Invalid Interpretation Code [facility] Comment on above: Result Comment: INR results are specifically intended to assess patients stabilized on long-term Anticoagulation therapy suggested INR?s ?Less Intensive Anticoagulation? 2.0 ? 3.0Conventional Range 3.0 ? 4.5 Performed By: #### 1 [id number] ####[facility] [address] [facility] [address] PT Coag (PPP) [Time] 13.3 second(s) High 9.4-12.5 [facility] Comment on above: Result Comment: [...] the same coagulation reagent and instrumentation as [facility]. Currently there are no coagulation studies available worldwide for children to 14 days, and no normal ranges. Performed By: #### 1 [id number] ####[facility] [address] [place] [address] Patient Education - Texton 0 04-11-2023 Patient Education - Text Normal [facility] BMPon 04-08-2023 Creatinine [Mass/Vol] 0.6 mg/dL Normal 0.5-1.3 [facility] Comment on above: Performed By: #### 2 751168, 6515237, 3188654, 0567517, 25735333, 40098211 ####[facility] [address] [place] [address] Urea nitrogen [Mass/Vol] 27 mg/dL High 5-21 [facility] Comment on above: Performed By: #### 2 507320, 8287044, 4528787, 7378597, 30611990, 15324964 ####[facility] [address] [place] [address] Urea nitrogen/Creatinine [Mass ratio] 45 No Units High 10-20 [facility] Comment on above: Performed By: #### 2 328654, 0653820, 2079972, 0037144, 62189784, 87804127 ####[facility] [address] [place] [address] Anion gap [Moles/Vol] 9 mmol/L Normal 6-16 [facility] Comment on above: Performed By: #### 2 132553, 3020411, 8124720, 8837222, 36576178, 04137710 ####[facility] [address] [place] [address] Calcium [Mass/Vol] 8.5 mg/dL Low 8.9-11.1 [facility] Comment on above: Performed By: #### 2 918462, 3670430, 1348607, 6004804, 63187147, 47513878 ####[facility] [address] [place] [address] Chloride [Moles/Vol] 99 mmol/L Low 101-111 [facility] Comment on above: Performed By: #### 2 958062, 1434491, 8605207, 3963658, 32485667, 41214406 ####[facility] [address] [place] [address] CO2 [Moles/Vol] 28 mmol/L Normal 21-31 [facility] Comment on above: Performed By: #### 2 489747, 8454191, 5620451, 1035492, 98456853, 76536228 ####[facility] [address] [place] [address] Glucose [Mass/Vol] 163 mg/dL Normal 55-199 [facility] Comment on above: Result Comment: If t his glucose result represents a fasting glucose, interpretation should refer to the following reference range: 55-99 mg/dL Performed By: #### 2 930693, 1470340, 4546137, 7442361, 51656347, 60550664 ####[facility] [address] [place] [address] Potassium [Moles/Vol] 3.7 mmol/L Normal 3.5-5.3 [facility] Comment on above: Performed By: #### 2 874582, 1227727, 9968384, 7681477, 96167791, 85142062 ####[facility] [address] [place] [address] Sodium [Moles/Vol] 132 mmol/L Low 135-145 [facility] Comment on above: Performed By: #### 2 609611, 9474106, 7772259, 0807041, 47717975, 12613583 ####[facility] [address] [place] [address] CBC w/Indiceson 04-08-2023 Erythrocyte distribution width (RBC) [Ratio] 20.5 % High 10.9-14.2 [facility] Comment on above: Performed By: #### 2 134182, 6851041, 7932688, 5265002, 77136360, 58284850 ####[address] [place] [address] Hematocrit (Bld) [Volume fraction] 31.4 % Low 37.7-49.0 [facility] Comment on above: Performed By: #### 2 627458, 2885820, 6391331, 2752148, 34591625, 50809366 ####[facility] [address] [place] [address] Hemoglobin (Bld) [Mass/Vol] 10.2 g/dL Low 13.5-17.5 [facility] Comment on above: Performed By: #### 2 045955, 2678801, 4106927, 4358375, 97438678, 18249089 ####[facility] [address] [place] [address] MCH (RBC) [Entitic mass] 30.3 pg Normal 27.0-34.0 [facility] Comment on above: Performed By: #### 2 449342, 9150978, 4797757, 0693961, 72873725, 59887212 ####[facility] [address] [place] [address] MCHC (RBC) [Mass/Vol] 32.6 g/dL Normal 31.4-36.0 [facility] Comment on above: Performed By: #### 2 277555, 6196081, 4760168, 7772245, 67167163, 57303263 ####[facility] [address] [place] [address] MCV (RBC) [Entitic vol] 92.9 fL Normal 80.0-100.0 [facility] Comment on above: Performed By: #### 2 054593, 2652487, 3889723, 2204780, 91388010, 35054535 ####[facility] [address] [place] [address] Platelet mean volume (Bld) [Entitic vol] 9.2 fL Normal 6.4-10.8 [facility] Comment on above: Performed By: #### 2 832379, 3898354, 6269299, 6164775, 61562893, 38265564 ####[facility] [address] [place] [address] Platelets (Bld) [#/Vol] 156.0 E9/L Normal 150.0-500.0 [facility] Comment on above: Performed By: #### 2 859011, 1481864, 2513907, 8202461, 91425293, 28260740 ####[address] [place] [address] RBC (Bld) [#/Vol] 3.4 E12/L Low 4.3-5.9 [facility] Comment on above: Performed By: #### 2 866933, 4347287, 4785141, 9308729, 04519719, 41562018 ####[address] [place] [address] WBC corrected for nucl RBC Auto (Bld) [#/Vol] 3.6 E9/L Low 4.0-11.0 [facility] Comment on above: Performed By: #### 2 666381, 2844459, 5786943, 9540180, 54168907, 44854588 ####[facility] [address] [place] [address] CHEMISTRYOrdered By: SYSTEM SYSTEM on 04-08-2023 Anion gap [Moles/Vol] 9 mmol/L Normal 6 - 16 mEq/L [facility] Calcium [Mass/Vol] 8.5 mg/dL Low 8.9 - 11. 1 mg/dL [facility] Chloride [Moles/Vol] 99 mmol/L Low 101 - 1 11 mmol/L [facility] CO2 [Moles/Vol] 28 mmol/L Normal 21 - 31 mmol/L [facility] Creatinine [Mass/Vol] 0.6 mg/dL Normal 0.5 - 1.3 mg/dL [facility] GFR/1.73 sq M.predicted among non-blacks MDRD (S/P/Bld) [Vol rate/Area] 100 mL/min/1.73 m2 Normal >=59mL/min/1 .73 m2 [facility] Chem S Glucose [Mass/Vol] 163 mg/dL Normal [...] 27 mg/dL High 5 - 21 mg/dL [facility] Remisol Urea nitrogen/Creatinine [Mass ratio] 45 mg/mg High 10 - 20 [facility] COAGULATIONOrdered By: Yang Ayala on 04-08-2023 aPTT Coag (PPP) [Time] 40.6 s High 25.1 - 36.5 second(s) [facility] Auto Coag INR Coag (PPP) [Relative time] 1.7 {INR} Invalid Interpretation Code [facility] Auto Coag PT Coag (PPP) [Time] 19.0 s High 9.4 - 1 2.5 second(s) [facility] Auto Coag Consent for Treatmenton 03-12 Consent for Treatment [id number]#1.00CD: 127 Normal [facility] Formson 04-08-2023 Forms [id number]#1.00CD :127 Normal [facility] HEMATOLOGYOrdered By: Fabi Massey on [...] 3.6 E9/L Low 4.0 - 11.0 E9/L [facility] HemeAutoSS Magnesiumon 04-08-2023 Magnesium [Mass/Vol] 1.9 mg/dL Normal 1.3-2.4 [facility] Comment on above: Performed By: #### 2 648857, 7737886, 8815586, 5533664, 74453571, 75078254 ####[facility] [address] [place] [address] PT & PTTon 04-08-2023 aPTT Coag (PPP) [Time] 40.6 second(s) High 25.1-36.5 [facility] Comment on above: Result Comment: Para meter 15 days - 4 weeks 1 - 5 months 6 - 11 months 1 - 5 years 6 - 10 years 11 - 17 years PTT Mean: 35.4 (27.6-45.6) Mean: 33.5 (24.8-40.7) Mean: 32.4 (25.1-40.7) Mean: 31.6 (24.0-39.2) Mean: 31.6 (26.9-38.7) Mean: 31.0 (24.6-38.4) Pediatric Reference ranges were obtained from a study by elder Livingston. prepared from 1437 samples obtained at 7 different centers using the same coagulation reagent and instrumentation as [facility]. Currently there are no coagulation studies available worldwide for children to 14 days, and no normal ranges. Heparin therapeutic range (represented by Anti-Factor Xa activity of 0.2 - 0.4 U/mL) corresponds to PTT of 56.6 - 109.0 sec. Performed By: #### 2 326884, 0233167, 2071131, 9310983, 60893538, 71524727 ####[facility] [address] [place] [address] INR Coag (PPP) [Relative time] 1.7 {INR} Invalid Interpretation Code [facility] Comment on above: Result Comment: INR results are specifically intended to assess patients stabilized on long-term Anticoagulation therapy suggested INR?s ?Less Intensive Anticoagulation? 2.0 ? 3.0Conventional Range 3.0 ? 4.5 Performed By: #### 2 330720, 9778853, 1001156, 9924047, 70787324, 91400058 ####[facility] [address] [place] [address] PT Coag (PPP) [Time] 19.0 second(s) High 9.4-12.5 [facility] Comment on above: Result Comment: 15 d ays - 4 weeks 1 - 5 months 6 -11 months 1-5 years 6-10 years 11 -17 years Mean: 11.2 (9.5-12.6) Mean: 11.0 (9.7-12.8) Mean: 11.0 (9.8-13.0) Mean: 11.3 (9.9-13.4) Mean: 11.7 (10.0-14.6) Mean: 11.8 (10.0 - 14.1) Pediatric Reference ranges were obtained from a study by phillip Livingston prepared from 1437 samples obtained at 7 different centers using the same coagulation reagent and instrumentation as [facility]. Currently there are no coagulation studies available worldwide for children to 14 days, and no normal ranges. Performed By: #### 2 405662, 3537454, 4466529, 9700745, 40779088, 12131382 ####[facility] [address] [place] [address] Phosphoruson 04-08-2023 Phosphate [Mass/Vol] 2.7 mg/dL Normal 1.9-4.6 [facility] Comment on above: Performed By: #### 2 830011, 2110802, 9458429, 7771274, 72829653, 61593649 ####[facility] [address] [place] [address] Physician Orderon 04-08-2023 Physician Order [id number]#1.00CD :127 Normal [facility] eGFRon 04-08-2023 GFR/1.73 sq M.predicted among non-blacks MDRD (S/P/Bld) [Vol rate/Area] 100 mL/min/1.73 m2 Normal >=59 [facility] Comment on above: Order Comment: Order added by Discern Expert. Result Comment: Towing Pilot alen kidney disease could be indicated at eGFR's of less than 60 mL/min/1.73m2. Kidney failure is indicated at less than 15 mL/min/1.73m2. Performed By: #### 2 086803, 0494108, 6860494, 5336641, 71818000, 96626028 ####[facility] [address] [place] [address] Formson 04-07-2023 Forms [id number]#1.00CD: 127 Normal [facility] Orders Officeon 04-07-2023 Orders Office [id number]#1.00CD: 127 Normal [facility] Path. Reviewon 04-05-2023 Path Review Anemia with anisocytosis, microcytes and mild polychromasia. Clinical correlation and iron studies are recommended to determine etiology as clinically indicated. Invalid Interpretation Code [facility] Comment on above: Order Comment: Order Added by Discern Expert. Performed By: #### 2 326564, 7521676, 69849863, 19144268, 9162274, 75638261 ####[facility] [address] [place] [address] Auto Diffon 04-04-2023 Basophils/100 WBC (Bld) 0.9 % Normal 0.0-2.0 [facility] Comment on above: Order Comment: Order Added by Discern Expert. Performed By: #### 2 237134, 2932672, 56682744, 64361888, 2140168, 86739010 ####[facility] [address] [place] [address] Basophils/Leukocytes Auto (Bld) [Pure # fraction] 0.0 E9/L Normal 0.0-0.2 [facility] Comment on above: Order Comment: Order Added by Discern Expert. Performed By: #### 2 710972, 4797598, 76525851, 53947127, 3075446, 50405570 ####[facility] [address] [place] [address] Eosinophils/100 WBC (Bld) 1.6 % Normal 0.0-8.0 [facility] Comment on above: Order Comment: Order Added by Discern Expert. Performed By: #### 2 537053, 1954635, 92528506, 35204792, 6362870, 37316981 ####[facility] [address] [place] [address] Eosinophils/Leukocytes Auto (Bld) [Pure # fraction] 0.1 E9/L Normal 0.0-0.5 [facility] Comment on above: Order Comment: Order Added by Discern Expert. Performed By: #### 2 781415, 5835320, 17401618, 41954394, 8487236, 98096739 ####[facility] [address] [place] [address] Lymphocytes/100 WBC (Bld) 11.7 % Low 14.0-50.0 [facility] Comment on above: Order Comment: Order Added by Discern Expert. Performed By: #### 2 156126, 3840611, 31694789, 50971440, 3840821, 71433356 ####[facility] [address] [place] [address] Lymphocytes/Leukocytes Auto (Bld) [Pure # fraction] 0.4 E9/L Low 1.0-4.0 [facility] Comment on above: Order Comment: Order Added by Discern Expert. Performed By: #### 2 878570, 9714787, 76057477, 54832338, 5060452, 55837834 ####[address] [place] [address] Monocytes/100 WBC (Bld) 13.1 % Normal 4.0-14.0 [facility] Comment on above: Order Comment: Order Added by Cristiano Expert. Performed By: #### 2 651094, 6522561, 23790264, 28177529, 4585731, 25956401 ####[facility] [address] [place] [address] Monocytes/Leukocytes Auto (Bld) [Pure # fraction] 0.5 E9/L Normal 0.2-1.0 [facility] Comment on above: Order Comment: Order Added by Cristiano Expert. Performed By: #### 2 883412, 7739392, 46206009, 45230757, 6300699, 12819017 ####[facility] [address] [place] [address] Neutrophils/100 WBC (Bld) 72.7 % Normal 36.0-75.0 [facility] Comment on above: Order Comment: Order Added by Cristiano Expert. Performed By: #### 2 253580, 3970836, 35031948, 01719718, 7151854, 75745953 ####[facility] [address] [place] [address] Neutrophils/Leukocytes Auto (Bld) [Pure # fraction] 2.7 E9/L Normal 2.0-7.5 [facility] Comment on above: Order Comment: Order Added by Discern Expert. Performed By: #### 2 500799, 2239789, 21959651, 07133098, 6449833, 82220183 ####[facility] [address] [place] [address] BMPon 04-04-2023 Anion gap [Moles/Vol] 10 mmol/L Normal 6-16 [facility] Comment on above: Performed By: #### 2 570303, 6052311, 79492357, 45931188, 1198281, 14055213 ####[facility] [address] [place] [address] Calcium [Mass/Vol] 9.2 mg/dL Normal 8.9-11.1 [facility] Comment on above: Performed By: #### 2 465537, 5397170, 21636027, 61905728, 4133749, 25510787 ####[facility] [address] [place] [address] Chloride [Moles/Vol] 102 mmol/L Normal 101-111 [facility] Comment on above: Performed By: #### 2 119460, 1306635, 27851069, 76843806, 3329033, 85928692 ####[facility] [address] [place] [address] CO2 [Moles/Vol] 28 mmol/L Normal 21-31 [facility] Comment on above: Performed By: #### 2 354673, 6390604, 06752416, 65718922, 4531698, 84014056 ####[facility] [address] [place] [address] Creatinine [Mass/Vol] 0.5 mg/dL Normal 0.5-1.3 [facility] Comment on above: Performed By: #### 2 891910, 4936715, 91091247, 36671649, 4839878, 56958578 ####[facility] [address] [place] [address] Glucose [Mass/Vol] 171 mg/dL Normal 55-199 [facility] Comment on above: Result Comment: If t his glucose result represents a fasting glucose, interpretation should refer to the following reference range: 55-99 mg/dL Performed By: #### 2 243540, 3908013, 46989588, 45636976, 8271680, 78454295 ####[facility] [address] [place] [address] Potassium [Moles/Vol] 3.8 mmol/L Normal 3.5-5.3 [facility] Comment on above: Performed By: #### 2 181712, 3083249, 14612543, 47338350, 4555780, 77101514 ####[facility] [address] [place] [address] Sodium [Moles/Vol] 136 mmol/L Normal 135-145 [facility] Comment on above: Performed By: #### 2 791755, 1693814, 50436490, 04853982, 5890074, 08861775 ####[facility] [address] [place] [address] Urea nitrogen [Mass/Vol] 34 mg/dL High 5-21 [facility] Comment on above: Performed By: #### 2 024539, 0724127, 74837840, 88979636, 9321540, 91865390 ####[facility] [address] [place] [address] Urea nitrogen/Creatinine [Mass ratio] 68 No Units High 10-20 [facility] Comment on above: Performed By: #### 2 040075, 0641022, 56122076, 28202467, 9232050, 26278352 ####[facility] [address] [place] [address] CBC w/ Auto Diffon 3 Erythrocyte distribution width (RBC) [Ratio] 22.1 % High 10.9-14.2 [facility] Comment on above: Performed By: #### 2 799788, 2381818, 41254741, 05030996, 0872858, 04187318 ####[facility] [address] [place] [address] Hematocrit (Bld) [Volume fraction] 31.2 % Low 37.7-49.0 [facility] Comment on above: Performed By: #### 2 815064, 1837605, 49183545, 09686308, 0336533, 70611951 ####[place] [address] [place] [address] Hemoglobin (Bld) [Mass/Vol] 10.1 g/dL Low 13.5-17.5 [facility] Comment on above: Performed By: #### 2 745260, 6029615, 15436465, 83493426, 3394663, 93299797 ####[address] [address] MCH (RBC) [Entitic mass] 30.3 pg Normal 27.0-34.0 [facility] Comment on above: Performed By: #### 2 756697, 1614449, 76154248, 47972625, 1505542, 58533841 ####[address] [address] MCHC (RBC) [Mass/Vol] 32.4 g/dL Normal 31.4-36.0 [facility] Comment on above: Performed By: #### 2 416977, 5431458, 85353061, 36231351, 1854052, 05581810 ####[address] [place] [address] MCV (RBC) [Entitic vol] 93.6 fL Normal 80.0-100.0 [facility] Comment on above: Performed By: #### 2 276327, 8391995, 03829426, 93790918, 5928047, 87387447 ####[facility] [address] [place] [address] Platelet mean volume (Bld) [Entitic vol] 8.5 fL Normal 6.4-10.8 [facility] Comment on above: Performed By: #### 2 416818, 6384013, 87704273, 98189370, 1576649, 19238026 ####[facility] [address] [place] [address] Platelets (Bld) [#/Vol] 170.0 E9/L Normal 150.0-500.0 [facility] Comment on above: Performed By: #### 2 491315, 2497390, 94374226, 23742679, 2216681, 13446752 ####[facility] [address] [place] [address] RBC (Bld) [#/Vol] 3.3 E12/L Low 4.3-5.9 [facility] Comment on above: Performed By: #### 2 829775, 0511057, 81101304, 52152702, 6135792, 30632670 ####[facility] [address] [place] [address] WBC corrected for nucl RBC Auto (Bld) [#/Vol] 3.7 E9/L Low 4.0-11.0 [facility] Comment on above: Performed By: #### 2 360355, 2084912, 17256356, 61976809, 3676349, 36479794 ####[facility] [address] [place] [address] CHEMISTRYOrdered By: SYSTEM SYSTEM on 04-04-2023 Anion gap [Moles/Vol] 10 mmol/L Normal 6 - 16 mEq/L [facility] Remisol Calcium [Mass/Vol] 9.2 mg/dL Normal 8.9 - 11. 1 mg/dL [facility] Remisol Chloride [Moles/Vol] 102 mmol/L Normal 101 - 1 11 mmol/L [facility] Remisol CO2 [Moles/Vol] 28 mmol/L Normal 21 - 31 mmol/L [facility] Remisol Creatinine [Mass/Vol] 0.5 mg/dL Normal 0.5 - 1.3 mg/dL [facility] Remisol GFR/1.73 sq M.predicted among non-blacks MDRD (S/P/Bld) [Vol rate/Area] 106 mL/min/1.73 m2 Normal >=59mL/min/1 .73 m2 [facility] Chem S Glucose [Mass/Vol] 171 mg/dL Normal [...] for Treatmenton 03-11 Consent for Treatment [id number]#1.00CD: 127 Normal [facility] Consent for Treatment [id number]#1.00CD: 127 Normal [facility] HEMATOLOGYOrdered By: Damian Peterson on 04-04-2023 Anisocytosis Ql (Bld) Present (04/04/23 12:24 PM) Normal [facility] HemeManSS Erythrocyte distribution width (RBC) [Ratio] 22.1 % High 10.9 - 14.2 % FT HemeAutoSS Hematocrit (Bld) [Volume fraction] 31.2 % Low 37.7 - 49.0 % [facility] HemeAutoSS Hemoglobin (Bld) [Mass/Vol] 10.1 g/dL Low 13.5 - 17.5 gm/dL [facility] HemeAutoSS Hypochromia Auto Ql (Bld) Present (04/04/23 12:24 PM) Normal [facility] HemeManSS MCH (RBC) [Entitic mass] 30.3 pg [...] Present (04/04/23 12:24 PM) Normal [facility] HemeManSS RBC (Bld) [#/Vol] 3.3 E12/L Low [...] 72.7 % Normal 36.0 - 75.0 % [facility] HemeAutoSS Neutrophils/Leukocytes Auto (Bld) [Pure # fraction] 2.7 E9/L Normal 2.0 - 7.5 E9/L [facility] HemeAutoSS Heart and Vascular Office/Cl inic Noteon 04-04-2023 Heart and Vascular Office/Clinic Note Normal [facility] Comment on above: Result Comment: Elec tronically Signed By: Vickey WISE, Erwin Evans\.br\Date and Time Signed: 04/04/23 11:48 EDT Morphon 04-04-2023 Anisocytosis Ql (Bld) Present Normal [facility] Comment on above: Order Comment: Order Added by Discern Expert. Performed By: #### 2 769460, 1319328, 36562757, 01690948, 4257938, 44484337 ####[facility] [address] [facility] [place], [place] [address] Hypochromia Auto Ql (Bld) Present Normal [facility] Comment on above: Order Comment: Order Added by Discern Expert. Performed By: #### 2 905656, 3748646, 41980971, 52720833, 9023496, 99529435 ####[facility] [address] [facility] [place] [place] [address] Morphology Jah (Bld) [Interp] See Morphology Normal [facility] Comment on above: Order Comment: Order Added by Discern Expert. Performed By: #### 2 416308, 1952132, 03799197, 36417428, 0817238, 45164717 ####[facility] [address] [address] Polychromasia LM Ql (Bld) Present Normal [facility] Comment on above: Order Comment: Order Added by Discern Expert. Performed By: #### 2 057734, 7027994, 10560136, 80210805, 3503469, 20138088 ####[facility] [address] [facility] [place] [place] [address] Rouleaux LM Ql (Bld) Present Normal [facility] Comment on above: Order Comment: Order Added by Discern Expert. Performed By: #### 2 800963, 5034187, 64987309, 49194866, 6917668, 20108235 ####[facility] [address] [place] [address] Schistocytes LM Ql (Bld) Present Normal [facility] Comment on above: Order Comment: Order Added by Discern Expert. Performed By: #### 2 256800, 5328803, 26696159, 83452139, 6068595, 85983668 ####[facility] [address] [place] [address] Spherocytes LM Ql (Bld) Present Normal [facility] Comment on above: Order Comment: Order Added by Cristiano Expert. Performed By: #### 2 844802, 8313511, 04746663, 17366000, 2210556, 31723568 ####[facility] [address] [place] [address] Outside Progress Noteon 03-11 Outside Progress Note [id number]#1.00CD :127 Normal [facility] eGFRon 04-04-2023 GFR/1.73 sq M.predicted among non-blacks MDRD (S/P/Bld) [Vol rate/Area] 106 mL/min/1.73 m2 Normal >=59 [facility] Comment on above: Order Comment: Order added by Discern Expert. Result Comment: Towing Pilot alen kidney disease could be indicated at eGFR's of less than 60 mL/min/1.73m2. Kidney failure is indicated at less than 15 mL/min/1.73m2. Performed By: #### 2 845905, 5999582, 58118853, 60969014, 6559188, 87470694 ####[facility] [address] [place] [address] Consent for Treatmenton 06-0 Consent for Treatment [id number]#1.00CD: 127 Normal [facility] Heart and Vascular Office/Cl inic Noteon 03-17-2023 Heart and Vascular Office/Clinic Note Normal [facility] Comment on above: Result Comment: Elec tronically Signed By: Vickey WISE, Erwin Evans\.br\Date and Time Signed: 03/17/23 14:05 EDT Progress Note-Physicianon Progress Note-Physician [id number]#1.00CD:1 27 Normal [facility] Coding Queryon 03-15-2023 Coding Query Normal [facility] Progress Note-Physicianon Progress Note-Physician Normal [facility] Comment on above: Result Comment: Elec tronically Signed By: Aiden Campa MD\.br\Date and Time Signed: 03/15/23 20:46 EDT C Urineon 03-12-2023 Bacteria identified Cx Nom (U) Normal [facility] Comment on above: Performed By: #### 2 369402, 60253837 ####[facility] [address] [place] [address] IntraOperative Documentson 0 03-11-2023 IntraOperative Documents [id number]#1.00CD :127 Normal [facility] .Interpretation:on 3 HCV Ab IA Ql Comment Invalid Interpretation Code [facility] Comment on above: Result Comment: Not infected with HCV unless early or acute infection issuspected (which may be delayed in an immunocompromisedindividual), or other evidence exists to indicate HCV infection.Performed at: [facility] [address] [place], [place] [id number] PhD Azar Luevano Performed By: #### 8 90679496, 1913139065, 6607036707, 4837841 ####[facility] [address] [place] [address] CHEMISTRYOrdered By: Lab ROP User on 03-10-2023 Glucose [Mass/Vol] 140 mg/dL High 55 - 99 mg/dL [facility] POC Subsection Comment on above: Result Comment: Nuno MARIN POC Device SN [id number] Invalid Interpretation Code FT POC Subsection POC User ID [id number] Invalid Interpretation Code FT POC Subsection POC Username ADRIAN JOSE LUIS Invalid Interpretation Code FT POC Subsection Glucose [Mass/Vol] 116 mg/dL High 55 - 99 mg/dL [facility] POC Subsection Comment on above: Result Comment: Nuno MARIN POC Device SN [id number] Invalid Interpretation Code FT POC Subsection POC User ID [id number] Invalid Interpretation Code FT POC Subsection POC Username ADRIAN JOSE LUIS Invalid Interpretation Code FT POC Subsection CHEMISTRYOrdered By: SYSTEM SYSTEM on 03-10-2023 Anion gap [Moles/Vol] 9 mmol/L Normal 6 - 16 mEq/L [facility] Remisol Chloride [Moles/Vol] 102 mmol/L Normal 101 - 1 11 mmol/L [facility] Remisol CO2 [Moles/Vol] 29 mmol/L Normal 21 - 31 mmol/L [facility] Remisol Magnesium [Mass/Vol] 1.8 mg/dL Normal 1.3 - 2 .4 mg/dL [facility] Remisol Potassium [Moles/Vol] 3.5 mmol/L Normal 3.5 - 5.3 mmol/L [facility] Remisol Sodium [Moles/Vol] 136 mmol/L Normal 135 - 145 mmol/L [facility] Remisol Capillary Glucose POCon Glucose [Mass/Vol] 140 mg/dL High 55-99 [facility] Comment on above: Result Comment: Nuno MARIN Performed By: #### 2 [id number] ####[facility] [address] [place] [address] Glucose [Mass/Vol] 116 mg/dL High 55-99 [facility] Comment on above: Result Comment: Nuno MARIN Performed By: #### 2 09824786 ####[facility] [address] [place] [address] Glucose [Mass/Vol] 83 mg/dL Normal 55-99 [facility] Comment on above: Result Comment: Nuno MARIN Performed By: #### 2 83300147 ####[facility] [address] [place] [address] Consent for Blood Transfusio non 03-10-2023 Consent for Blood Transfusion [id number]#1.00CD :127 Normal [facility] Discharge Instructionson Discharge Instructions [id number]#1.00CD :127 Normal [facility] Discharge Note-Nursingon Discharge Note-Nursing Normal [facility] HCV Antibody RFX to Quant PC Chai 03-10-2023 HCV IgG IA Ql Non-Reactive Invalid Interpretation Code Non Reactive [facility] Comment on above: Result Comment: Perf ormed at: [employer] [facility] [id number] [place], [place] [id number] PhD Azar Luevano Performed By: #### 8 73915997, 5711870230, 6843641565, 6972016 ####[facility] [address] [place] [address] Hep Bs Agon 03-10-2023 HBV surface Ag IA Ql Negative Invalid Interpretation Code Negative [facility] Comment on above: Result Comment: Perf ormed at: [facility] [address] [id number] PhD Azar Luevano Performed By: #### 8 68078134, [id number], 9262795999, 5516519 ####[facility] [address] [place] [address] Inpatient Clinical Summaryon 03-10-2023 Inpatient Clinical Summary Normal [facility] Inpatient Patient Summaryon 03-10-2023 Inpatient Patient Summary Normal [facility] Interdisciplinary Note - Michelet e Manageron 03-10-2023 Interdisciplinary Note - 3D Designer Normal [facility] Comment on above: Result Comment: Elec tronically Signed By: Sonia Morejon\.br\Date and Time Signed: 03/10/23 14:25 EDT Lyteson 03-10-2023 Anion gap [Moles/Vol] 9 mmol/L Normal 6-16 [facility] Comment on above: Order Comment: line packet sent up to floor...mmf 03/10/2023 04:24:28 EDT Performed By: #### 2 630048, 6293202 ####[facility] [address] [place] [address] Chloride [Moles/Vol] 102 mmol/L Normal 101-111 [facility] Comment on above: Order Comment: line packet sent up to floor...[facility] 03/10/2023 04:24:28 EDT Performed By: #### 2 509796, 5254428 ####[address] [address] CO2 [Moles/Vol] 29 mmol/L Normal 21-31 [facility] Comment on above: Order Comment: line packet sent up to floor...[facility] 03/10/2023 04:24:28 EDT Performed By: #### 2 378179, 8184665 ####[address] [address] Potassium [Moles/Vol] 3.5 mmol/L Normal 3.5-5.3 [facility] Comment on above: Order Comment: line packet sent up to floor...[facility] 03/10/2023 04:24:28 EDT Performed By: #### 2 383421, 4968740 ####[address] [address] Sodium [Moles/Vol] 136 mmol/L Normal 135-145 [facility] Comment on above: Order Comment: line packet sent up to floor...[facility] 03/10/2023 04:24:28 EDT Performed By: #### 2 898185, 6139368 ####[facility] [address] [place] [address] Magnesiumon 03-10-2023 Magnesium [Mass/Vol] 1.8 mg/dL Normal 1.3-2.4 [facility] Comment on above: Performed By: #### 2 799641, 4026923 ####[facility] [address] [place] [address] Progress Note-Nurseon 2022 Progress Note-Nurse Late Entry Pt's spouse took home all belongings except for the wound vac in preparation for discharge on 03/10 @ 1253. Normal [facility] Transfer Documentson 023 Transfer Documents [id number]#1.00CD :127 Normal [facility] UA With Cult Reflexon 2022 Bacteria LM Ql (Urine sed) TRACE Normal Trace [facility] Comment on above: Order Comment: Urina ry Catheter Insertion triggered Urinalysis With Culture Reflex order by discern. Performed By: #### 2 112936, 84695927 ####[address] [address] Bilirubin Ql (U) Negative Normal Negative [facility] Comment on above: Order Comment: Urina ry Catheter Insertion triggered Urinalysis With Culture Reflex order by discern. Performed By: #### 2 023408, 62184026 ####[facility] [address] [place] [address] Clarity (U) CLEAR Normal Clear [facility] Comment on above: Order Comment: Urina ry Catheter Insertion triggered Urinalysis With Culture Reflex order by discern. Performed By: #### 2 487379, 33145464 ####[facility] [address] [place] [address] Color (U) YELLOW Normal Yellow [facility] Comment on above: Order Comment: Urina ry Catheter Insertion triggered Urinalysis With Culture Reflex order by discern. Performed By: #### 2 888740, 07307727 ####[facility] [address] [place] [address] Epithelial cells.squamous LM.HPF (Urine sed) [#/Area] 0-2 Normal 0-2 [facility] Comment on above: Order Comment: Urina ry Catheter Insertion triggered Urinalysis With Culture Reflex order by discern. Performed By: #### 2 142595, 17863428 ####[facility] [address] [place] [address] Glucose Test strip (U) [Mass/Vol] Negative Normal Negative [facility] Comment on above: Order Comment: Urina ry Catheter Insertion triggered Urinalysis With Culture Reflex order by discern. Performed By: #### 2 051207, 41612689 ####[facility] [address] [place] [address] Hemoglobin Ql (U) 1+ Abnormal Negative [facility] Comment on above: Order Comment: Urina ry Catheter Insertion triggered Urinalysis With Culture Reflex order by discern. Performed By: #### 2 771639, 82260471 ####[address] [address] Ketones (U) [Mass/Vol] Negative Normal Negative [facility] Comment on above: Order Comment: Urina ry Catheter Insertion triggered Urinalysis With Culture Reflex order by discern. Performed By: #### 2 526541, 89750446 ####[place] [address] Stoy.plasma/Stoy. RBC (Bld) [Mass ratio] 4-20 Normal 0-3 [facility] Comment on above: Order Comment: Urina ry Catheter Insertion triggered Urinalysis With Culture Reflex order by discern. Performed By: #### 2 941915, 25302454 ####[place] [address] Mucus Ql (Urine sed) TRACE Normal [facility] Comment on above: Order Comment: Urina ry Catheter Insertion triggered Urinalysis With Culture Reflex order by discern. Performed By: #### 2 965204, 72638025 ####[facility] [address] [place] [address] Nitrite Ql (U) Negative Normal Negative [facility] Comment on above: Order Comment: Urina ry Catheter Insertion triggered Urinalysis With Culture Reflex order by discern. Performed By: #### 2 240936, 51119777 ####[address] [address] pH (U) 8.5 [pH] Invalid Interpretation Code 5.0-9.0 [facility] Comment on above: Order Comment: Urina ry Catheter Insertion triggered Urinalysis With Culture Reflex order by discern. Performed By: #### 2 659954, 94778070 ####[place] [address] Protein (U) [Mass/Vol] TRACE Abnormal Negative [facility] Comment on above: Order Comment: Urina ry Catheter Insertion triggered Urinalysis With Culture Reflex order by discern. Performed By: #### 2 753826, 97474528 ####[place] [address] Specific gravity (U) [Rel density] 1.015 Invalid Interpretation Code 1.005-1.030 [facility] Comment on above: Order Comment: Urina ry Catheter Insertion triggered Urinalysis With Culture Reflex order by discern. Performed By: #### 2 057325, 90274714 ####[place] [address] Type of Urine collection method Boles Normal [facility] Comment on above: Order Comment: Urina ry Catheter Insertion triggered Urinalysis With Culture Reflex order by discern. Performed By: #### 2 746064, 30972679 ####[place] [address] Urobilinogen Qn (U) 0.2 {Mercedes'U}/dL Normal 0.0-1.0 [facility] Comment on above: Order Comment: Urina ry Catheter Insertion triggered Urinalysis With Culture Reflex order by discern. Performed By: #### 2 158218, 39809356 ####[place] [address] WBC Auto Ql (U) 1+ Abnormal Negative [facility] Comment on above: Order Comment: Urina ry Catheter Insertion triggered Urinalysis With Culture Reflex order by discern. Performed By: #### 2 262145, 57898613 ####[place] [address] WBC LM.HPF (Urine sed) [#/Area] 6-15 Abnormal 0-5 [facility] Comment on above: Order Comment: Urina ry Catheter Insertion triggered Urinalysis With Culture Reflex order by discern. Performed By: #### 2 928037, 66476015 ####[facility] [address] [place] [address] URINALYSISOrdered By: Fabi Massey on 03-10-2023 Bacteria [...] PM) Normal Negative [facility] UA Auto SS Stoy.plasma/Stoy. RBC (Bld) [Mass ratio] 4-20 /HPF Normal [...] [facility] UA Auto SS Urobilinogen Qn (U) 0.6640152 {Mercedes'U}/dL Normal 0.0 - 1.0 EU/dL [facility] UA Auto SS WBC Auto Ql (U) 1+ *ABN* (03/10/23 12:33 PM) Invalid Interpretation Code Negative [facility] UA Auto SS WBC LM.HPF (Urine sed) [#/Area] 6-15 /HPF Invalid Interpretation Code 0-5/HPF [facility] UA Auto SS CHEMISTRYOrdered By: Lab ROP User on 03-09-2023 Glucose [Mass/Vol] 83 mg/dL Normal 55 - 99 mg/dL [facility] POC Subsection Comment on above: Result Comment: Nuno MARIN POC Device SN [id number] Invalid Interpretation Code [facility] POC Subsection POC User ID [id number] Invalid Interpretation Code [facility] POC Subsection POC Username JULIO CÉSAR CHAVIS Invalid Interpretation Code [facility] POC Subsection Capillary Glucose POCon 02-09 Glucose [Mass/Vol] 98 mg/dL Normal 55-99 [facility] Comment on above: Result Comment: Nuno MARIN Performed By: #### 2 [id number] ####[facility] [address] [place] [address] Glucose [Mass/Vol] 219 mg/dL High 55-99 [facility] Comment on above: Result Comment: Nuno MARIN Performed By: #### 2 [id number] ####[facility] [facility] [address] [place] [address] Glucose [Mass/Vol] 130 mg/dL High 55-99 [facility] Comment on above: Result Comment: Nuno MARIN Performed By: #### 2 [id number] ####[facility] [address] [place] [address] Interdisciplinary Note - Michelet e Manageron 03-09-2023 Interdisciplinary Note - 3D Designer Normal [facility] Comment on above: Result Comment: Elec tronically Signed By: Sonia Morejon\.br\Date and Time Signed: 03/09/23 12:18 EDT Progress Note-Physicianon Progress Note-Physician Normal [facility] Comment on above: Result Comment: Elec tronically Signed By: JEROME AGPCNP, Anabela\.br\Date and Time Signed: 03/09/23 16:26 EDT\.br\Electronically Co-Signed By: Vazquez WISE, [place]\.br\Date and Time Co-Signed: 03/09/23 17:57 EDT UA With Cult Reflexon 2022 Type of Urine collection method Clean Catch Normal [facility] Comment on above: Order Comment: Urina ry Catheter Insertion triggered Urinalysis With Culture Reflex order by discern. Performed By: #### 1 [id number] ####[facility] [address] [place] [address] Bacteria LM Ql (Urine sed) TRACE Normal Trace [facility] Comment on above: Order Comment: Urina ry Catheter Insertion triggered Urinalysis With Culture Reflex order by discern. Performed By: #### 1 [id number] ####[facility] [address] [place] [address] Bilirubin Ql (U) Negative Normal Negative [facility] Comment on above: Order Comment: Urina ry Catheter Insertion triggered Urinalysis With Culture Reflex order by discern. Performed By: #### 1 [id number] ####[facility] [address] [place] [address] Clarity (U) CLEAR Normal Clear [facility] Comment on above: Order Comment: Urina ry Catheter Insertion triggered Urinalysis With Culture Reflex order by discern. Performed By: #### 1 [id number] ####[facility] [address] [place] [address] Color (U) YELLOW Normal Yellow [facility] Comment on above: Order Comment: Urina ry Catheter Insertion triggered Urinalysis With Culture Reflex order by discern. Performed By: #### 1 [id number] ####[facility] [address] [place] [address] Epithelial cells.squamous LM.HPF (Urine sed) [#/Area] 0-2 Normal 0-2 [facility] Comment on above: Order Comment: Urina ry Catheter Insertion triggered Urinalysis With Culture Reflex order by discern. Performed By: #### 1 [id number] ####[facility] [address] [place] [address] Glucose Test strip (U) [Mass/Vol] Negative Normal Negative [facility] Comment on above: Order Comment: Urina ry Catheter Insertion triggered Urinalysis With Culture Reflex order by discern. Performed By: #### 1 [id number] ####[facility] [address] [place] [address] Hemoglobin Ql (U) 1+ Abnormal Negative [facility] Comment on above: Order Comment: Urina ry Catheter Insertion triggered Urinalysis With Culture Reflex order by discern. Performed By: #### 1 [id number] ####[facility] [address] [place] [address] Ketones (U) [Mass/Vol] Negative Normal Negative [facility] Comment on above: Order Comment: Urina ry Catheter Insertion triggered Urinalysis With Culture Reflex order by discern. Performed By: #### 1 [id number] ####[address] [address] Stoy.plasma/Stoy. RBC (Bld) [Mass ratio] 0-3 Normal 0-3 [facility] Comment on above: Order Comment: Urina ry Catheter Insertion triggered Urinalysis With Culture Reflex order by discern. Performed By: #### 1 [id number] ####[facility] [address] [place] [address] Nitrite Ql (U) Negative Normal Negative [facility] Comment on above: Order Comment: Urina ry Catheter Insertion triggered Urinalysis With Culture Reflex order by discern. Performed By: #### 1 [id number] ####[facility] [address] [place] [address] pH (U) 7.5 [pH] Invalid Interpretation Code 5.0-9.0 [facility] Comment on above: Order Comment: Urina ry Catheter Insertion triggered Urinalysis With Culture Reflex order by discern. Performed By: #### 1 [id number] ####[address] [address] Protein (U) [Mass/Vol] Negative Normal Negative [facility] Comment on above: Order Comment: Urina ry Catheter Insertion triggered Urinalysis With Culture Reflex order by discern. Performed By: #### 1 [id number] ####[address] [address] Specific gravity (U) [Rel density] 1.010 Invalid Interpretation Code 1.005-1.030 [facility] Comment on above: Order Comment: Urina ry Catheter Insertion triggered Urinalysis With Culture Reflex order by discern. Performed By: #### 1 [id number] ####[place] [address]3957 Urobilinogen Qn (U) 0.2 {Mercedes'U}/dL Normal 0.0-1.0 [facility] Comment on above: Order Comment: Urina ry Catheter Insertion triggered Urinalysis With Culture Reflex order by discern. Performed By: #### 1 [id number] ####[address] [address] WBC Auto Ql (U) Negative Normal Negative [facility] Comment on above: Order Comment: Urina ry Catheter Insertion triggered Urinalysis With Culture Reflex order by discern. Performed By: #### 1 [id number] ####[address] [address] WBC LM.HPF (Urine sed) [#/Area] 0-5 Normal 0-5 [facility] Comment on above: Order Comment: Urina ry Catheter Insertion triggered Urinalysis With Culture Reflex order by discern. Performed By: #### 1 [id number] ####[address] [address] URINALYSISOrdered By: Tommy Gerardo on 03-09-2023 Bacteria LM Ql (Urine sed) Trace /HPF Normal Trace/HPF FT UA Auto SS Bilirubin Ql (U) Negative (03/09/23 6:50 PM) Normal Negative [facility] UA Auto SS Clarity (U) Clear (03/09/23 6:50 PM) Normal Clear [facility] UA Auto SS Color (U) Yellow (03/09/23 6:50 PM) Normal Yellow [facility] UA Auto SS Epithelial cells.squamous LM.HPF (Urine sed) [#/Area] 0-2 /HPF Normal 0-2/HPF [facility] UA Auto SS Glucose Test strip (U) [Mass/Vol] Negative (03/09/23 6:50 PM) Normal Negative [facility] UA Auto SS Hemoglobin Ql (U) 1+ *ABN* (03/09/23 6:50 PM) Invalid Interpretation Code Negative [facility] UA Auto SS Ketones (U) [Mass/Vol] Negative (03/09/23 6:50 PM) Normal Negative [facility] UA Auto SS Stoy.plasma/Stoy. RBC (Bld) [Mass ratio] 0-3 /HPF Normal 0-3/HPF [facility] UA Auto SS Nitrite Ql (U) Negative (03/09/23 6:50 PM) Normal Negative [facility] UA Auto SS pH (U) 7.5 *NA* (03/09/23 6:50 PM) Invalid Interpretation Code 5.0 - 9.0 [facility] UA Auto SS Protein (U) [Mass/Vol] Negative (03/09/23 6:50 PM) Normal Negative [facility] UA Auto SS Specific gravity (U) [Rel density] 1.010 *NA* (03/09/23 6:50 PM) Invalid Interpretation Code 1.005 - 1.030 [facility] UA Auto SS UA Spec Desc Clean Catch (03/09/23 6:50 PM) Normal [facility] UA Auto SS Urobilinogen Qn (U) 0.6221540 {Mercedes'U}/dL Normal 0.0 - 1.0 EU/dL [facility] UA Auto SS WBC Auto Ql (U) Negative (03/09/23 6:50 PM) Normal Negative [facility] UA Auto SS WBC LM.HPF (Urine sed) [#/Area] 0-5 /HPF Normal 0-5/HPF [facility] UA Auto SS CHEMISTRYOrdered By: SYSTEM SYSTEM on 03-08-2023 Anion gap [Moles/Vol] 10 mmol/L Normal 6 - 16 mEq/L [facility] Chloride [Moles/Vol] 103 mmol/L Normal 101 - 1 11 mmol/L [facility] Remisol CO2 [Moles/Vol] 27 mmol/L Normal 21 - 31 mmol/L [facility] Potassium [Moles/Vol] 3.6 mmol/L Normal 3.5 - 5.3 mmol/L [facility] Sodium [Moles/Vol] 136 mmol/L Normal 135 - 145 mmol/L [facility] Capillary Glucose POCon 02-09 Glucose [Mass/Vol] 154 mg/dL High 55-99 [facility] Comment on above: Result Comment: Nuno MARIN Performed By: #### 2 [id number] ####[facility] [address] [place] [address] Glucose [Mass/Vol] 108 mg/dL High - [facility] Comment on above: Result Comment: Nuno MARIN Performed By: #### 2 [id number] ####[facility] [address] [place] [address] Glucose [Mass/Vol] 153 mg/dL High - [facility] Comment on above: Result Comment: Nuno MARIN Performed By: #### 2 [id number] ####[place] [address] [place] [address] Glucose [Mass/Vol] 144 mg/dL High - [facility] Comment on above: Result Comment: Nuno MARIN Performed By: #### 2 [id number] ####[facility] [address] [place] [address] HIV-1/2 [facility] HIV 1+2 Ab and HIV1 p24 Ag IA.rapid Nom (S/P/Bld) Negative Normal Negative [facility] Comment on above: Performed By: #### 8 [id number], [id number], [id number], [id number] ####[facility] [address] [place] [address] HIV 1+2 Ab+HIV1 p24 Ag IA Ql Non-Reactive Normal Non-Reactive [facility] Comment on above: Performed By: #### 8 [id number], [id number], [id number], [id number] ####[facility] [address] [place] [address] HIV Combo Internal Control Line Reactive Normal Reactive [facility] Comment on above: Performed By: #### 8 [id number], [id number], [id number], 6377805 ####[facility] [address] [place] [address] HIV-1/2 Ag/Ab Combo Negative for HIV-1 and/or HIV-2 antibodies and HIV-1 p24 antigen. Normal Negative [facility] Interdisciplinary Note - Michelet e Manageron 03-08-2023 Interdisciplinary Note - 3D Designer Normal [facility] Comment on above: Result Comment: Elec tronically Signed By: Yane Escobar\Date and Time Signed: 03/08/23 12:57 EDT Interdisciplinary Note - Alf singon 03-08-2023 Interdisciplinary Note - Nursing Normal [facility] Lyteson 03-08-2023 Anion gap [Moles/Vol] 10 mmol/L Normal 6-16 [facility] Comment on above: Order Comment: packe t given to jesi lee 03/08/2023 09:35:59 EDT Performed By: #### 2 [id number] ####[facility] [address] [place] [address] Chloride [Moles/Vol] 103 mmol/L Normal 101-111 [facility] Comment on above: Order Comment: packe t given to jesi lee 03/08/2023 09:35:59 EDT Performed By: #### 2 [id number] ####[facility] [address] [place] [address] CO2 [Moles/Vol] 27 mmol/L Normal 21-31 [facility] Comment on above: Order Comment: packe t given to jesi lee 03/08/2023 09:35:59 EDT Performed By: #### 2 057930 ####[facility] [address] [place] [address] Potassium [Moles/Vol] 3.6 mmol/L Normal 3.5-5.3 [facility] Comment on above: Order Comment: packe t given to jesi lee 03/08/2023 09:35:59 EDT Performed By: #### 2 310951 ####[facility] [address] [place] [address] Sodium [Moles/Vol] 136 mmol/L Normal 135-145 [facility] Comment on above: Order Comment: yolanda azar given to jesi hughes002 03/08/2023 09:35:59 EDT Performed By: #### 2 288887 ####[facility] [address] [place] [address] Physician Orderon 03-08-2023 Physician Order [id number]: 127 Normal [facility] Progress Note-Physicianon Progress Note-Physician Normal [facility] Comment on above: Result Comment: Elec tronically Signed By: Anabela DONIS\.br\Date and Time Signed: 03/08/23 15:57 EDT\.br\Electronically Co-Signed By: West Shukla MD\.br\Date and Time Co-Signed: 03/08/23 16:14 EDT Progress Note-Physician Normal [facility] Comment on above: Result Comment: Elec tronically Signed By: Chong Coe M.D\.br\Date and Time Signed: 03/08/23 12:34 EDT Progress Note-Physician Normal [facility] Comment on above: Result Comment: Elec tronically Signed By: Lynda Carrero RN\.br\Date and Time Signed: 03/08/23 09:30 EDT\.br\Electronically Co-Signed By: Benji Russell DO\.br\Date and Time Co-Signed: 03/08/23 10:10 EDT Progress Note-Physician Normal [facility] Comment on above: Result Comment: Elec tronically Signed By: MD Horner Ahmad F\.br\Date and Time Signed: 03/08/23 08:47 EDT Progress Note-Physician Normal [facility] Comment on above: Result Comment: Elec tronically Signed By: MD Horner Ahmad F\.br\Date and Time Signed: 03/08/23 08:46 EDT Auto Diffon 03-07-2023 Basophils/100 WBC (Bld) 0.3 % Normal 0.0-2.0 [facility] Comment on above: Order Comment: Order Added by Discern Expert. Performed By: #### 2 783866, 1986360, [id number], 4895185 ####[address] [address] Basophils/Leukocytes Auto (Bld) [Pure # fraction] 0.0 E9/L Normal 0.0-0.2 [facility] Comment on above: Order Comment: Order Added by Discern Expert. Performed By: #### 2 513059, 0988992, [id number], 4616661 ####[address] [address] Eosinophils/100 WBC (Bld) 1.1 % Normal 0.0-8.0 [facility] Comment on above: Order Comment: Order Added by Discern Expert. Performed By: #### 2 604800, 0968086, 39816405, 2691443 ####[address] [address] Eosinophils/Leukocytes Auto (Bld) [Pure # fraction] 0.1 E9/L Normal 0.0-0.5 [facility] Comment on above: Order Comment: Order Added by Cristiano Expert. Performed By: #### 2 821113, 0455793, 10397767, 6195343 ####[address] [address] Lymphocytes/100 WBC (Bld) 5.5 % Low 14.0-50.0 [facility] Comment on above: Order Comment: Order Added by Discern Expert. Performed By: #### 2 439840, 8090813, 23637606, 6203323 ####[address] [address] Lymphocytes/Leukocytes Auto (Bld) [Pure # fraction] 0.3 E9/L Low 1.0-4.0 [facility] Comment on above: Order Comment: Order Added by Discern Expert. Performed By: #### 2 663953, 5219245, 07502839, 8945716 ####[facility] [address] [place] [address] Monocytes/100 WBC (Bld) 10.4 % Normal 4.0-14.0 [facility] Comment on above: Order Comment: Order Added by Cristiano Expert. Performed By: #### 2 446296, 4535133, 93950736, 0930909 ####[facility] [address] [place] [address] Monocytes/Leukocytes Auto (Bld) [Pure # fraction] 0.5 E9/L Normal 0.2-1.0 [facility] Comment on above: Order Comment: Order Added by Cristiano Expert. Performed By: #### 2 755889, 9978065, 26663653, 8029078 ####[place] [address] [place] [address] Neutrophils/100 WBC (Bld) 82.7 % High 36.0-75.0 [facility] Comment on above: Order Comment: Order Added by Cristiano Expert. Performed By: #### 2 401653, 1177004, 99529722, 4720830 ####[place] [address] [place] [address] Neutrophils/Leukocytes Auto (Bld) [Pure # fraction] 4.1 E9/L Normal 2.0-7.5 [facility] Comment on above: Order Comment: Order Added by Cristiano Expert. Performed By: #### 2 647767, 6285067, 91767108, 3127718 ####[facility] [address] [place] [address] BMPon 03-07-2023 Anion gap [Moles/Vol] 8 mmol/L Normal 6-16 [facility] Comment on above: Performed By: #### 2 313377, 3675188, 72888639, 1128395 ####[facility] [address] [place] [address] Calcium [Mass/Vol] 8.8 mg/dL Low 8.9-11.1 [facility] Comment on above: Performed By: #### 2 505412, 5631599, 83461287, 8143034 ####[facility] [address] [place] [address] Chloride [Moles/Vol] 107 mmol/L Normal 101-111 [facility] Comment on above: Performed By: #### 2 868086, 9979697, 39194985, 0735442 ####[facility] [address] [place] [address] CO2 [Moles/Vol] 28 mmol/L Normal 21-31 [facility] Comment on above: Performed By: #### 2 454901, 1119052, 01416301, 4352382 ####[facility] [address] [place] [address] Creatinine [Mass/Vol] 0.6 mg/dL Normal 0.5-1.3 [facility] Comment on above: Performed By: #### 2 135723, 9893975, 48673252, 9656033 ####[facility] [address] [place] [address] Glucose [Mass/Vol] 136 mg/dL Normal 55-199 [facility] Comment on above: Result Comment: If t his glucose result represents a fasting glucose, interpretation should refer to the following reference range: 55-99 mg/dL Performed By: #### 2 606029, 4106837, 87174947, 4394913 ####[facility] [address] [place] [address] Potassium [Moles/Vol] 3.1 mmol/L Low 3.5-5.3 [facility] Comment on above: Performed By: #### 2 533628, 3755085, 17808637, 3863817 ####[facility] [address] [place] [address] Sodium [Moles/Vol] 140 mmol/L Normal 135-145 [facility] Comment on above: Performed By: #### 2 523895, 7338244, 93404960, 2986438 ####[facility] [address] [place] [address] Urea nitrogen [Mass/Vol] 19 mg/dL Normal 5-21 [facility] Comment on above: Performed By: #### 2 075233, 0496132, 44386889, 1262220 ####[facility] [address] [place] [address] Urea nitrogen/Creatinine [Mass ratio] 32 No Units High 10-20 [facility] Comment on above: Performed By: #### 2 657026, 6752227, 98156919, 4231416 ####[facility] [address] [place] [address] CBC w/ Auto Diffon 3 Erythrocyte distribution width (RBC) [Ratio] 19.2 % High 10.9-14.2 [facility] Comment on above: Performed By: #### 2 388705, 0247482, 88198838, 9075016 ####[facility] [address] [place] [address] Hematocrit (Bld) [Volume fraction] 27.3 % Low 37.7-49.0 [facility] Comment on above: Performed By: #### 2 928121, 9402941, 76456362, 6882596 ####[facility] [address] [place] [address] Hemoglobin (Bld) [Mass/Vol] 8.8 g/dL Low 13.5-17.5 [facility] Comment on above: Performed By: #### 2 545877, 2062105, 57703670, 6435776 ####[facility] [address] [place] [address] MCH (RBC) [Entitic mass] 27.4 pg Normal 27.0-34.0 [facility] Comment on above: Performed By: #### 2 264257, 8067380, 56468674, 6130426 ####[facility] [address] [place] [address] MCHC (RBC) [Mass/Vol] 32.2 g/dL Normal 31.4-36.0 [facility] Comment on above: Performed By: #### 2 712260, 8780776, 46712868, 0324941 ####[facility] [address] [place] [address] MCV (RBC) [Entitic vol] 85.0 fL Normal 80.0-100.0 [facility] Comment on above: Performed By: #### 2 297299, 5709681, 54279103, 7819638 ####[facility] [address] [place] [address] Platelet mean volume (Bld) [Entitic vol] 8.4 fL Normal 6.4-10.8 [facility] Comment on above: Performed By: #### 2 477527, 9955270, 77516588, 9561826 ####[place] [address]39[address] Platelets (Bld) [#/Vol] 220.0 E9/L Normal 150.0-500.0 [facility] Comment on above: Performed By: #### 2 010773, 3981188, 87758123, 8435639 ####[place] [address] RBC (Bld) [#/Vol] 3.2 E12/L Low 4.3-5.9 [facility] Comment on above: Performed By: #### 2 298176, 3336806, 47640032, 4637823 ####[address] [address] WBC corrected for nucl RBC Auto (Bld) [#/Vol] 5.0 E9/L Normal 4.0-11.0 [facility] Comment on above: Performed By: #### 2 868882, 8385388, 20051015, 1585995 ####[facility] [address] [place] [address] CHEMISTRYOrdered By: SYSTEM SYSTEM on 03-07-2023 Anion gap [Moles/Vol] 8 mmol/L Normal 6 - 16 mEq/L [facility] Remisol Calcium [Mass/Vol] 8.8 mg/dL Low 8.9 - 11. 1 mg/dL [facility] Remisol Chloride [Moles/Vol] 107 mmol/L Normal 101 - 1 11 mmol/L [facility] Remisol CO2 [Moles/Vol] 28 mmol/L Normal 21 - 31 mmol/L [facility] Remisol Creatinine [Mass/Vol] 0.6 mg/dL Normal 0.5 - 1.3 mg/dL [facility] Remisol GFR/1.73 sq M.predicted among non-blacks MDRD (S/P/Bld) [Vol rate/Area] 100 mL/min/1.73 m2 Normal >=59mL/min/1 .73 m2 [facility] Chem S Glucose [Mass/Vol] 136 mg/dL Normal 55 - 199 mg/dL [facility] Remisol Potassium [Moles/Vol] 3.1 mmol/L Low 3.5 - 5.3 mmol/L [facility] Remisol Sodium [Moles/Vol] 140 mmol/L Normal 135 - 145 mmol/L [facility] Remisol Urea nitrogen [Mass/Vol] 19 mg/dL Normal 5 - 21 mg/dL [facility] Remisol Urea nitrogen/Creatinine [Mass ratio] 32 mg/mg High 10 - 20 [facility] Remisol Capillary Glucose POCon 05 Glucose [Mass/Vol] 138 mg/dL High 55-99 [facility] Comment on above: Result Comment: Nuno MARIN Performed By: #### 2 [id number] ####[facility] [address] [place] [address] Glucose [Mass/Vol] 91 mg/dL Normal 55-99 [facility] Comment on above: Result Comment: Nuno MARIN Performed By: #### 2 [id number] ####[facility] [address] [place] [address] Glucose [Mass/Vol] 216 mg/dL High 55-99 [facility] Comment on above: Result Comment: Nuno MARIN Performed By: #### 2 [id number] ####[facility] [address] [place] [address] Glucose [Mass/Vol] 133 mg/dL High 55-99 [facility] Comment on above: Result Comment: Nuno aranda RN/ Performed By: #### 2 [id number] ####[facility] [address] [place] [address] HEMATOLOGYOrdered By: SYSTEM SYSTEM on 03-07-2023 Basophils/100 [...] Michelet e Manageron 03-07-2023 Interdisciplinary Note - 3D Designer Normal [facility] Comment on above: Result Comment: Elec tronically Signed By: Sonia Morejon\.br\Date and Time Signed: 03/07/23 12:44 EDT Operative Reporton 3 Operative Report Normal [facility] Comment on above: Result Comment: Elec tronically Signed By: Erwin Hurd MD\.br\Date and Time Signed: 03/07/23 20:21 EDT eGFRon 03-07-2023 GFR/1.73 sq M.predicted among non-blacks MDRD (S/P/Bld) [Vol rate/Area] 100 mL/min/1.73 m2 Normal >=59 [facility] Comment on above: Order Comment: Order added by Discern Expert. Result Comment: Towing Pilot alen kidney disease could be indicated at eGFR's of less than 60 mL/min/1.73m2. Kidney failure is indicated at less than 15 mL/min/1.73m2. Performed By: #### 2 256731, 3807209, 19484623, 8773465 ####[facility] [address] [place] [address] Ammoniaon 03-06-2023 Ammonia (P) [Moles/Vol] 16 mcmol Normal 11-35 [facility] Comment on above: Performed By: #### 2 259777 ####[facility] [address] [place] [address] CHEMISTRYOrdered By: SYSTEM SYSTEM on 03-06-2023 Ammonia (P) [Moles/Vol] 16 umol Normal 11 - 35 mcmol [facility] Remisol Capillary Glucose POCon 02-08 Glucose [Mass/Vol] 129 mg/dL High 55-99 [facility] Comment on above: Result Comment: Nuno MARIN Performed By: #### 2 [id number] ####[facility] [address] [place] [address] Glucose [Mass/Vol] 181 mg/dL High 55-99 [facility] Comment on above: Performed By: #### 2 [id number] ####[facility] [address] [place] [address] Glucose [Mass/Vol] 209 mg/dL High 55-99 [facility] Comment on above: Result Comment: Nuno MARIN Performed By: #### 2 [id number] ####[facility] [address] [place] [address] Glucose [Mass/Vol] 136 mg/dL High 55-99 [facility] Comment on above: Result Comment: Nuno MARIN Performed By: #### 2 [id number] ####[facility] [address] [place] [address] Interdisciplinary Note - Michelet e Manageron 03-06-2023 Interdisciplinary Note - 3D Designer Normal [facility] [facility] Comment on above: Result Comment: Elec tronically Signed By: Chong GUARDADO, Leona\.br\Date and Time Signed: 03/06/23 11:50 EDT Progress Note-Physicianon Progress Note-Physician Normal [facility] Comment on above: Result Comment: Elec tronically Signed By: Jovanny WISE, Savage Lebr\Date and Time Signed: 03/06/23 12:09 EDT Progress Note-Physician Normal [facility] Comment on above: Result Comment: Elec tronically Signed By: Lynda Carrero RN\.br\Date and Time Signed: 03/06/23 10:26 EDT\.br\Electronically Co-Signed By: Benji Russell DO\.br\Date and Time Co-Signed: 03/06/23 10:39 EDT Progress Note-Physician Normal [facility] Comment on above: Result Comment: Elec tronically Signed By: Shayy BALLESTEROS MD\.br\Date and Time Signed: 03/06/23 09:20 EDT Auto DiffOrdered By: SYSTEM SYSTEM on 03-05-2023 Basophils/100 WBC (Bld) 0.4 % Normal 0.0-2.0 F [facility] Comment on above: Order Comment: Order Added by Discern Expert. Performed By: #### 2 136428, 6188651, 96016927, 9421878 ####[address] [address] Basophils/Leukocytes Auto (Bld) [Pure # fraction] 0.0 E9/L Normal 0.0-0.2 [facility] Comment on above: Order Comment: Order Added by Discern Expert. Performed By: #### 2 278135, 0935314, 78149792, 7588991 ####[address] [place] [address] Eosinophils/100 WBC (Bld) 0.4 % Normal 0.0-8.0 FT [facility] Comment on above: Order Comment: Order Added by Discern Expert. Performed By: #### 2 893103, 8899048, 91813687, 6083577 ####[facility] [address] [place] [address] Eosinophils/Leukocytes Auto (Bld) [Pure # fraction] 0.0 E9/L Normal 0.0-0.5 [facility] Comment on above: Order Comment: Order Added by Discern Expert. Performed By: #### 2 278617, 2256678, 65263441, 1314923 ####[address] [address] Lymphocytes/100 WBC (Bld) 5.2 % Low 14.0-50.0 [facility] Comment on above: Order Comment: Order Added by Discern Expert. Performed By: #### 2 555774, 4206706, 99893719, 0898621 ####[place] [address] [address] Lymphocytes/Leukocytes Auto (Bld) [Pure # fraction] 0.3 E9/L Low 1.0-4.0 FT [facility] Comment on above: Order Comment: Order Added by Discern Expert. Performed By: #### 2 351756, 5662213, 77822774, 3009624 ####[address] [address] Monocytes/100 WBC (Bld) 9.2 % Normal 4.0-14.0 [facility] Comment on above: Order Comment: Order Added by Cristiano Expert. Performed By: #### 2 185416, 4394738, 02732293, 5156032 ####[facility] [address] [address] Monocytes/Leukocytes Auto (Bld) [Pure # fraction] 0.6 E9/L Normal 0.2-1.0 [facility] Comment on above: Order Comment: Order Added by Cristiano Expert. Performed By: #### 2 900893, 6313660, 64097870, 5717359 ####[address] [address] Neutrophils/100 WBC (Bld) 84.8 % High 36.0-75.0 FT [facility] Comment on above: Order Comment: Order Added by Cristiano Expert. Performed By: #### 2 510840, 5193234, 16963595, 0954312 ####[address] [address] Neutrophils/Leukocytes Auto (Bld) [Pure # fraction] 5.6 E9/L Normal 2.0-7.5 [facility] Comment on above: Order Comment: Order Added by Discern Expert. Performed By: #### 2 058133, 0254416, 38332961, 9324514 ####[facility] [address] [place] [address] BMPon 03-05-2023 Anion gap [Moles/Vol] 9 mmol/L Normal 6-16 [facility] Comment on above: Performed By: #### 2 670701, 8972510, 41437612, 5950898 ####[facility] [address] [place] [address] Chloride [Moles/Vol] 101 mmol/L Normal 101-111 [facility] Comment on above: Performed By: #### 2 632275, 4109547, 28349253, 8344508 ####[facility] [address] [place] [address] CO2 [Moles/Vol] 26 mmol/L Normal 21-31 [facility] Comment on above: Performed By: #### 2 706740, 1313220, 67580558, 2285754 ####[facility] [address] [place] [address] Potassium [Moles/Vol] 3.6 mmol/L Normal 3.5-5.3 [facility] Comment on above: Performed By: #### 2 130958, 8413466, 84514792, 6525951 ####[facility] [address] [place] [address] Sodium [Moles/Vol] 132 mmol/L Low 135-145 [facility] Comment on above: Performed By: #### 2 477552, 0938168, 50545000, 6200970 ####[facility] [address] [place] [address] Urea nitrogen/Creatinine [Mass ratio] 26 No Units High 10-20 [facility] Comment on above: Performed By: #### 2 864892, 8010870, 32170922, 8031184 ####[facility] [address] [place] [address] BMPOrdered By: SYSTEM SYSTEM on 03-05-2023 Calcium [Mass/Vol] 8.0 mg/dL Low 8.9-11.1 [facility] Comment on above: Performed By: #### 2 036807, 1888721, 97374536, 0316525 ####[place] [facility] [address] [place] [address] Creatinine [Mass/Vol] 0.5 mg/dL Normal 0.5-1.3 [facility] Comment on above: Performed By: #### 2 108032, 4455039, 13349856, 2040697 ####[place] [facility] [address] [place] [address] Glucose [Mass/Vol] 125 mg/dL Normal 55-199 [facility] Comment on above: Result Comment: If t his glucose result represents a fasting glucose, interpretation should refer to the following reference range: 55-99 mg/dL Performed By: #### 2 802091, 0836492, 62671075, 4651013 ####[place] [address] [address] Urea nitrogen [Mass/Vol] 13 mg/dL Normal 5-21 [facility] Comment on above: Performed By: #### 2 204247, 1194638, 81009938, 1190776 ####[place] [address] [address] CBC w/ Auto DiffOrdered By: Yane Fitch on 03-05-2023 Erythrocyte distribution width (RBC) [Ratio] 18.2 % High 10.9-14.2 [facility] Comment on above: Performed By: #### 2 672481, 6417764, 47624488, 7302229 ####[place] [address] [place] [address] Hematocrit (Bld) [Volume fraction] 25.1 % Low 37.7-49.0 [facility] Comment on above: Performed By: #### 2 627076, 9150326, 35284560, 8681932 ####[place] [address] [address] Hemoglobin (Bld) [Mass/Vol] 8.2 g/dL Low 13.5-17.5 [facility] Comment on above: Performed By: #### 2 189328, 4330020, 33878339, 1000513 ####[place] [address] [address] MCH (RBC) [Entitic mass] 27.4 pg Normal 27.0-34.0 [facility] Comment on above: Performed By: #### 2 916375, 3694446, 60466759, 4770659 ####[place] [address] [address] MCHC (RBC) [Mass/Vol] 32.6 g/dL Normal 31.4-36.0 F[facility] C [facility] Comment on above: Performed By: #### 2 638599, 1296207, 49302263, 3942505 ####[place] [address] MCV (RBC) [Entitic vol] 84.1 fL Normal 80.0-100.0 [facility] Comment on above: Performed By: #### 2 892920, 0595046, 80020759, 3822240 ####[place] [address] [address] Platelet mean volume (Bld) [Entitic vol] 8.4 fL Normal 6.4-10.8 [facility] Comment on above: Performed By: #### 2 986576, 8456836, 39299096, 1100333 ####[place] [address] [address] Platelets (Bld) [#/Vol] 177.0 E9/L Normal 150.0-500.0 [facility] Comment on above: Performed By: #### 2 270498, 6222785, 05158638, 1149759 ####[facility] [address] [address] RBC (Bld) [#/Vol] 3.0 E12/L Low 4.3-5.9 [facility] Comment on above: Performed By: #### 2 670561, 0391694, 94378521, 5305963 ####[facility] [address] [place] [address] WBC corrected for nucl RBC Auto (Bld) [#/Vol] 6.5 E9/L Normal 4.0-11.0 [facility] Comment on above: Performed By: #### 2 483487, 3834945, 19551472, 1245140 ####[facility] [address] [place] [address] CHEMISTRYOrdered By: SYSTEM SYSTEM on 03-05-2023 Urea nitrogen/Creatinine [Mass ratio] 26 mg/mg High 10 - 20 [facility] Remisol Capillary Glucose POCon 02-08 Glucose [Mass/Vol] 158 mg/dL High 55-99 [facility] Comment on above: Result Comment: Nuno MARIN Performed By: #### 2 91402734 ####[address] [address] Glucose [Mass/Vol] 130 mg/dL High 55-99 [facility] Comment on above: Result Comment: Nuno MARIN Performed By: #### 2 79048296 ####[address] [address] Glucose [Mass/Vol] 166 mg/dL High 55-99 [facility] Comment on above: Result Comment: Nuno MARIN Performed By: #### 2 05678262 ####[address] [address] Glucose [Mass/Vol] 174 mg/dL High 55-99 [facility] Comment on above: Result Comment: Nuno MARIN Performed By: #### 2 31334283 ####[address] [address] Interdisciplinary Note - Michelet e Manageron 03-05-2023 Interdisciplinary Note - 3D Designer Normal [facility] Comment on above: Result Comment: Elec tronically Signed By: Chong GUARDADO, Leona\.br\Date and Time Signed: 03/05/23 11:48 EDT Progress Note-Physicianon Progress Note-Physician Normal [facility] Comment on above: Result Comment: Elec tronically Signed By: Jovanny WISE, Savage Jon.br\Date and Time Signed: 03/05/23 12:19 EDT eGFROrdered By: SYSTEM SYSTE M on 03-05-2023 GFR/1.73 sq M.predicted among non-blacks MDRD (S/P/Bld) [Vol rate/Area] 106 mL/min/1.73 m2 Normal >=59 [facility] Chem S Comment on above: Order Comment: Order added by Discern Expert. Result Comment: Towing Pilot alen kidney disease could be indicated at eGFR's of less than 60 mL/min/1.73m2. Kidney failure is indicated at less than 15 mL/min/1.73m2. Performed By: #### 2 007759, 1000001, 73972148, 5454116 ####[facility] [address] [place] [address] Auto DiffOrdered By: SYSTEM SYSTEM on 03-04-2023 Basophils/100 WBC (Bld) 1.3 % Normal 0.0-2.0 [facility] Comment on above: Order Comment: Order Added by Discern Expert. Performed By: #### 2 382458, 9519345, 85454517, 3785360 ####[facility] [address] [place] [address] Basophils/Leukocytes Auto (Bld) [Pure # fraction] 0.1 E9/L Normal 0.0-0.2 [facility] Comment on above: Order Comment: Order Added by Discern Expert. Performed By: #### 2 276330, 1180503, 86380531, 9534868 ####[facility] [address] [place] [address] Eosinophils/100 WBC (Bld) 0.0 % Normal 0.0-8.0 [facility] Comment on above: Order Comment: Order Added by Discern Expert. Performed By: #### 2 331985, 5392238, 30143885, 1141004 ####[address] [address] Eosinophils/Leukocytes Auto (Bld) [Pure # fraction] 0.0 E9/L Normal 0.0-0.5 FT [facility] Comment on above: Order Comment: Order Added by Discern Expert. Performed By: #### 2 384201, 6788043, 53917284, 8958468 ####[address] [address] Lymphocytes/100 WBC (Bld) 4.6 % Low 14.0-50.0 FT [facility] Comment on above: Order Comment: Order Added by Cristiano Expert. Performed By: #### 2 701358, 5226233, 65804791, 1925574 ####[address] [address] Lymphocytes/Leukocytes Auto (Bld) [Pure # fraction] 0.4 E9/L Low 1.0-4.0 [facility] Comment on above: Order Comment: Order Added by Cristiano Expert. Performed By: #### 2 422933, 9537353, 03491268, 9998773 ####[address] [address] Monocytes/100 WBC (Bld) 9.5 % Normal 4.0-14.0 [facility] Comment on above: Order Comment: Order Added by Cristiano Expert. Performed By: #### 2 855007, 6328355, 08616537, 7496188 ####[address] [address] Monocytes/Leukocytes Auto (Bld) [Pure # fraction] 0.9 E9/L Normal 0.2-1.0 FT [facility] Comment on above: Order Comment: Order Added by Cristiano Expert. Performed By: #### 2 560071, 2860081, 22347223, 8032922 ####[address] [address] Neutrophils/100 WBC (Bld) 84.6 % High 36.0-75.0 [facility] Comment on above: Order Comment: Order Added by Discern Expert. Performed By: #### 2 214397, 9073565, 76868861, 7313452 ####[facility] [address] [place] [address] Neutrophils/Leukocytes Auto (Bld) [Pure # fraction] 8.0 E9/L High 2.0-7.5 [facility] Comment on above: Order Comment: Order Added by Discern Expert. Performed By: #### 2 996139, 4814200, 14445825, 9203265 ####[facility] [address] [place] [address] BMPon 03-04-2023 Anion gap [Moles/Vol] 7 mmol/L Normal 6-16 [facility] Comment on above: Order Comment: line packet dropped off to floor...[facility] 03/04/2023 05:14:11 EDT Performed By: #### 2 597606, 0176024, 67955866, 8818162 ####[address] [address] Chloride [Moles/Vol] 102 mmol/L Normal 101-111 [facility] Comment on above: Order Comment: line packet dropped off to floor...[facility] 03/04/2023 05:14:11 EDT Performed By: #### 2 907632, 1338270, 85087874, 8218701 ####[address] [address] CO2 [Moles/Vol] 27 mmol/L Normal 21-31 [facility] Comment on above: Order Comment: line packet dropped off to floor...[facility] 03/04/2023 05:14:11 EDT Performed By: #### 2 361270, 6598773, 75485250, 1817326 ####[address] [address] Potassium [Moles/Vol] 4.0 mmol/L Normal 3.5-5.3 [facility] Comment on above: Order Comment: line packet dropped off to floor...[facility] 03/04/2023 05:14:11 EDT Performed By: #### 2 507521, 2790633, 56866087, 4794965 ####[facility] [address] [place] [address] Sodium [Moles/Vol] 132 mmol/L Low 135-145 [facility] Comment on above: Order Comment: line packet dropped off to floor...[facility] 03/04/2023 05:14:11 EDT Performed By: #### 2 904675, 5514546, 61924663, 4613224 ####[facility] [address] [place] [address] Urea nitrogen/Creatinine [Mass ratio] 34 No Units High 10-20 [facility] Comment on above: Order Comment: line packet dropped off to floor...[facility] 03/04/2023 05:14:11 EDT Performed By: #### 2 479822, 6368134, 68372950, 3351030 ####[facility] [address] [place] [address] BMPOrdered By: SYSTEM SYSTEM on 03-04-2023 Calcium [Mass/Vol] 8.1 mg/dL Low 8.9-11.1 [facility] Comment on above: Order Comment: line packet dropped off to floor...[facility] 03/04/2023 05:14:11 EDT Performed By: #### 2 429776, 7344679, 48836823, 6661279 ####[facility] [address] [place] [address] Creatinine [Mass/Vol] 0.5 mg/dL Normal 0.5-1.3 [facility] Comment on above: Order Comment: line packet dropped off to floor...[facility] 03/04/2023 05:14:11 EDT Performed By: #### 2 285261, 6768126, 74712690, 7109445 ####[facility] [address] [place] [address] Glucose [Mass/Vol] 129 mg/dL Normal 55-199 [facility] Comment on above: Order Comment: line packet dropped off to floor...[facility] 03/04/2023 05:14:11 EDT Result Comment: If t his glucose result represents a fasting glucose, interpretation should refer to the following reference range: 55-99 mg/dL Performed By: #### 2 815042, 9823329, 68266163, 3245911 ####[address] [place] [address] Urea nitrogen [Mass/Vol] 17 mg/dL Normal 5-21 [facility] Comment on above: Order Comment: line packet dropped off to floor...[facility] 03/04/2023 05:14:11 EDT Performed By: #### 2 509640, 1723867, 87608307, 0779747 ####[address] [address] CBC w/ Auto DiffOrdered By: Yane Fitch on 03-04-2023 Erythrocyte distribution width (RBC) [Ratio] 17.9 % High 10.9-14.2 [facility] Comment on above: Performed By: #### 2 274558, 2009922, 79215882, 7455980 ####[address] [address] Hematocrit (Bld) [Volume fraction] 26.9 % Low 37.7-49.0 [facility] Comment on above: Performed By: #### 2 149011, 9343650, 89656477, 0703023 ####[address] [address] Hemoglobin (Bld) [Mass/Vol] 8.8 g/dL Low 13.5-17.5 [facility] Comment on above: Performed By: #### 2 234162, 9917225, 76144057, 9603313 ####[address] [address] MCH (RBC) [Entitic mass] 27.4 pg Normal 27.0-34.0 [facility] Comment on above: Performed By: #### 2 568427, 6798098, 75042217, 5639290 ####[place] [address] MCHC (RBC) [Mass/Vol] 32.8 g/dL Normal 31.4-36.0 [facility] Comment on above: Performed By: #### 2 190304, 3343952, 31248093, 8004299 ####[place] [address] MCV (RBC) [Entitic vol] 83.7 fL Normal 80.0-100.0 F [facility] Comment on above: Performed By: #### 2 610862, 0131870, 08026889, 2100538 ####[place] [address] Platelet mean volume (Bld) [Entitic vol] 8.4 fL Normal 6.4-10.8 [facility] Comment on above: Performed By: #### 2 601251, 8648885, 84203808, 9634627 ####[place] [address] Platelets (Bld) [#/Vol] 185.0 E9/L Normal 150.0-500.0 [facility] Comment on above: Performed By: #### 2 559334, 6143475, 32063255, 5459338 ####[place] [address] RBC (Bld) [#/Vol] 3.2 E12/L Low 4.3-5.9 [facility] Comment on above: Performed By: #### 2 267397, 3782440, 05531211, 3405251 ####[place] [address] WBC corrected for nucl RBC Auto (Bld) [#/Vol] 9.5 E9/L Normal 4.0-11.0 [facility] Comment on above: Performed By: #### 2 428641, 9842896, 14539811, 4316606 ####[place] CHEMISTRYOrdered By: SYSTEM SYSTEM on 03-04-2023 Urea nitrogen/Creatinine [Mass ratio] 34 mg/mg High 10 - 20 [facility] Remisol Capillary Glucose POCon 02-08 Glucose [Mass/Vol] 123 mg/dL High 55-99 [facility] Comment on above: Result Comment: Nuno MARIN Performed By: #### 2 90307849 ####[facility] [address] [place] [address] Glucose [Mass/Vol] 158 mg/dL High 55-99 [facility] Comment on above: Result Comment: Nuno aranda RN/ Performed By: #### 2 52262218 ####[address] [address] Glucose [Mass/Vol] 154 mg/dL High 55-99 [facility] Comment on above: Result Comment: Nuno MARIN Performed By: #### 2 54988555 ####[address] [address] Glucose [Mass/Vol] 136 mg/dL High 55-99 [facility] Comment on above: Result Comment: Nuno MARIN Performed By: #### 2 82691751 ####[facility] [address] [place] [address] Consent for Anesthesiaon Consent for Anesthesia [id number] D:127 Normal [facility] Interdisciplinary Note - Michelet e Manageron 03-04-2023 Interdisciplinary Note - 3D Designer [facility] Comment on above: Result Comment: Elec tronically Signed By: Дмитрий RN, Alla\.br\Date and Time Signed: 03/04/23 13:05 EDT Interdisciplinary Note - Alf singon 03-04-2023 Interdisciplinary Note - Nursing Patient dressing was changed as it come off with continued movement. Normal [facility] Interdisciplinary Note - Ashley n 03-04-2023 Interdisciplinary Note - OT Normal [facility] IntraOperative Documentson 0 03-04-2023 IntraOperative Documents [id number] D:127 Normal [facility] Main OR Intraoperative Recor don 03-04-2023 Main OR Intraoperative Record Normal [facility] Progress Note-Physicianon Progress Note-Physician Normal [facility] Comment on above: Result Comment: Elec tronically Signed By: Katheryn WISE, Adien\.br\Date and Time Signed: 03/04/23 21:12 EDT Progress Note-Physician Normal [facility] Comment on above: Result Comment: Elec tronically Signed By: Chong Coe M.D\.br\Date and Time Signed: 03/04/23 09:39 EDT eGFROrdered By: LUZ Mckeon on 03-04-2023 GFR/1.73 sq M.predicted among non-blacks MDRD (S/P/Bld) [Vol rate/Area] 106 mL/min/1.73 m2 Normal >=59 [facility] Chem S Comment on above: Order Comment: Order added by Discern Expert. Result Comment: Towing Pilot alen kidney disease could be indicated at eGFR's of less than 60 mL/min/1.73m2. Kidney failure is indicated at less than 15 mL/min/1.73m2. Performed By: #### 2 105506, 5357665, 02468800, 0296849 ####[facility] [address] [place] [address] Auto Diffon 03-03-2023 Basophils/100 WBC (Bld) 2.3 % High 0.0-2.0 [facility] Comment on above: Order Comment: Order Added by Discern Expert. Performed By: #### 1 6212402, 3369934, 0948218, 4751450 ####[facility] [address] [place] [address] Basophils/Leukocytes Auto (Bld) [Pure # fraction] 0.2 E9/L Normal 0.0-0.2 [facility] Comment on above: Order Comment: Order Added by Discern Expert. Performed By: #### 1 0513158, 1774262, 6840472, 3257006 ####[address] [place] [address] Eosinophils/100 WBC (Bld) 0.8 % Normal 0.0-8.0 [facility] Comment on above: Order Comment: Order Added by Discern Expert. Performed By: #### 1 0086077, 5599724, 8993118, 2577941 ####[address] [address] Eosinophils/Leukocytes Auto (Bld) [Pure # fraction] 0.1 E9/L Normal 0.0-0.5 [facility] Comment on above: Order Comment: Order Added by Discern Expert. Performed By: #### 1 3749355, 6422589, 6598047, 6110975 ####[address] [address] Lymphocytes/100 WBC (Bld) 5.9 % Low 14.0-50.0 [facility] Comment on above: Order Comment: Order Added by Discern Expert. Performed By: #### 1 0608919, 4412667, 5113671, 7567439 ####[address] [address] Lymphocytes/Leukocytes Auto (Bld) [Pure # fraction] 0.4 E9/L Low 1.0-4.0 [facility] Comment on above: Order Comment: Order Added by Discern Expert. Performed By: #### 1 1006974, 2441252, 1694329, 3460553 ####[address] [address] Monocytes/100 WBC (Bld) 10.3 % Normal 4.0-14.0 [facility] Comment on above: Order Comment: Order Added by Discern Expert. Performed By: #### 1 5963457, 8118969, 4043430, 2509245 ####[address] [address] Monocytes/Leukocytes Auto (Bld) [Pure # fraction] 0.7 E9/L Normal 0.2-1.0 [facility] Comment on above: Order Comment: Order Added by Discern Expert. Performed By: #### 1 5273420, 3622849, 8579175, 8154075 ####[address] [place] [address] Neutrophils/100 WBC (Bld) 80.7 % High 36.0-75.0 [facility] Comment on above: Order Comment: Order Added by Discern Expert. Performed By: #### 1 2355527, 7596031, 1150493, 4224638 ####[address] [place] [address] Neutrophils/Leukocytes Auto (Bld) [Pure # fraction] 5.4 E9/L Normal 2.0-7.5 [facility] Comment on above: Order Comment: Order Added by Discern Expert. Performed By: #### 1 7302087, 1016701, 0456651, 1856908 ####[address] [place] [address] BMPon 03-03-2023 Anion gap [Moles/Vol] 7 mmol/L Normal 6-16 [facility] Comment on above: Performed By: #### 1 8289797, 2470275, 2897788, 6215767 ####[address] [place] [address] Calcium [Mass/Vol] 8.1 mg/dL Low 8.9-11.1 [facility] Comment on above: Performed By: #### 1 2808243, 0355055, 4377709, 9495564 ####[address] [place] [address] Chloride [Moles/Vol] 102 mmol/L Normal 101-111 [facility] Comment on above: Performed By: #### 1 0096176, 7754863, 6991507, 8603394 ####[address] [place] [address] CO2 [Moles/Vol] 27 mmol/L Normal 21-31 [facility] Comment on above: Performed By: #### 1 3597223, 6398381, 0426968, 8855663 ####[address] [place] [address] Creatinine [Mass/Vol] 0.5 mg/dL Normal 0.5-1.3 [facility] Comment on above: Performed By: #### 1 2607844, 8002121, 0057791, 8011284 ####[facility] [address] [place] [address] Glucose [Mass/Vol] 125 mg/dL Normal 55-199 [facility] Comment on above: Result Comment: If t his glucose result represents a fasting glucose, interpretation should refer to the following reference range: 55-99 mg/dL Performed By: #### 1 5120532, 5531013, 3050277, 3184264 ####[facility] [address] [place] [address] Potassium [Moles/Vol] 3.7 mmol/L Normal 3.5-5.3 [facility] Comment on above: Performed By: #### 1 8399578, 7792193, 1596925, 0720117 ####[facility] [address] [place] [address] Sodium [Moles/Vol] 132 mmol/L Low 135-145 [facility] Comment on above: Performed By: #### 1 0111500, 7035153, 0413878, 8358970 ####[facility] [address] [place] [address] Urea nitrogen [Mass/Vol] 20 mg/dL Normal 5-21 [facility] Comment on above: Performed By: #### 1 2757860, 7707295, 2805048, 9387699 ####[facility] [address] [place] [address] Urea nitrogen/Creatinine [Mass ratio] 40 No Units High 10-20 [facility] Comment on above: Performed By: #### 1 9057420, 3612954, 7411324, 6704057 ####[facility] [address] [place] [address] CBC w/ Auto Diffon 3 Erythrocyte distribution width (RBC) [Ratio] 18.1 % High 10.9-14.2 [facility] Comment on above: Performed By: #### 1 0079688, 2271353, 8133992, 9113088 ####[facility] [address] [place] [address] Hematocrit (Bld) [Volume fraction] 26.1 % Low 37.7-49.0 [facility] Comment on above: Performed By: #### 1 6714924, 4796119, 5729916, 9366216 ####[address] [place] [address] Hemoglobin (Bld) [Mass/Vol] 8.6 g/dL Low 13.5-17.5 [facility] Comment on above: Performed By: #### 1 6879838, 8433557, 6481259, 6655120 ####[address] [place] [address] MCH (RBC) [Entitic mass] 27.1 pg Normal 27.0-34.0 [facility] Comment on above: Performed By: #### 1 9987276, 4994145, 4472743, 9659059 ####[facility] [address] [place] [address] MCHC (RBC) [Mass/Vol] 32.9 g/dL Normal 31.4-36.0 [facility] Comment on above: Performed By: #### 1 7273583, 4602464, 9715355, 1467815 ####[address] [address] MCV (RBC) [Entitic vol] 82.4 fL Normal 80.0-100.0 [facility] Comment on above: Performed By: #### 1 7401597, 3662071, 5369606, 9066364 ####[address] [place] [address] Platelet mean volume (Bld) [Entitic vol] 9.1 fL Normal 6.4-10.8 [facility] Comment on above: Performed By: #### 1 5571624, 2886276, 5469741, 7772895 ####[facility] [address] [place] [address] Platelets (Bld) [#/Vol] 169.0 E9/L Normal 150.0-500.0 [facility] Comment on above: Performed By: #### 1 9232010, 7759478, 6225530, 7514416 ####[facility] [address] [place] [address] RBC (Bld) [#/Vol] 3.2 E12/L Low 4.3-5.9 [facility] Comment on above: Performed By: #### 1 7197671, 1426598, 4669745, 8564379 ####[facility] [address] [place] [address] WBC corrected for nucl RBC Auto (Bld) [#/Vol] 6.7 E9/L Normal 4.0-11.0 [facility] Comment on above: Performed By: #### 1 8360294, 2477777, 6612440, 0530343 ####[facility] [address] [place] [address] Capillary Glucose POCon 02-08 Glucose [Mass/Vol] 235 mg/dL High 55-99 [facility] Comment on above: Result Comment: Nuno MARIN Performed By: #### 2 30353575 ####[facility] [address] [place] [address] Glucose [Mass/Vol] 215 mg/dL High 55-99 [facility] Comment on above: Result Comment: Nuno MARIN Performed By: #### 2 20139844 ####[facility] [address] [place] [address] Glucose [Mass/Vol] 111 mg/dL High 55-99 [facility] Comment on above: Result Comment: Nuno MARIN Performed By: #### 2 81489656 ####[facility] [address] [place] [address] Glucose [Mass/Vol] 128 mg/dL High 55-99 [facility] Comment on above: Result Comment: Nuno aranda RN/ Performed By: #### 2 67963364 ####[facility] [address] [place] [address] Consent for Procedure/Surger yon 03-03-2023 Consent for Procedure/Surgery [id number]#[id number]: 127 Normal 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 No family in room. Plan is to go to [facility] at discharge. [facility] Comment on above: Result Comment: Elec tronically Signed By: Дмитрий GUARDADO, Alla\.br\Date and Time Signed: 03/03/23 11:35 EDT Main OR PACU I Recordon 02-08 Main OR PACU I Record Normal [facility] Main OR Preoperative Recordo n 03-03-2023 Main OR Preoperative Record Normal [facility] Monitor Recordon 03-03-2023 Monitor Record [id number] :127 Normal [facility] Monitor Record [id number]#1.00CD :127 [facility] Monitor Record [id number]#1.00CD :127 Normal [facility] Progress Note-Physicianon Progress Note-Physician Normal [facility] Comment on above: Result Comment: Elec tronically Signed By: Katheryn WISE, Aiden\.br\Date and Time Signed: 03/03/23 18:30 EDT eGFRon 03-03-2023 GFR/1.73 sq M.predicted among non-blacks MDRD (S/P/Bld) [Vol rate/Area] 106 mL/min/1.73 m2 Normal >=59 [facility] Comment on above: Order Comment: Order added by Discern Expert. Result Comment: Towing Pilot alen kidney disease could be indicated at eGFR's of less than 60 mL/min/1.73m2. Kidney failure is indicated at less than 15 mL/min/1.73m2. Performed By: #### 1 2455164, 5992134, 6889102, 7342550 ####[facility] [address] [place] [address] Auto Diffon 03-02-2023 Basophils/100 WBC (Bld) 1.0 % Normal 0.0-2.0 [facility] Comment on above: Order Comment: Order Added by Discern Expert. Performed By: #### 2 851556, 9506451, 0936323, 47080318, 9822289 ####[address] [place] [address] Basophils/Leukocytes Auto (Bld) [Pure # fraction] 0.1 E9/L Normal 0.0-0.2 [facility] Comment on above: Order Comment: Order Added by Discern Expert. Performed By: #### 2 855023, 9785905, 7636151, 13151811, 3920000 ####[address] [place] [address] Eosinophils/100 WBC (Bld) 0.2 % Normal 0.0-8.0 [facility] Comment on above: Order Comment: Order Added by Discern Expert. Performed By: #### 2 517270, 6730461, 5716817, 92204457, 2002925 ####[facility] [address] [place] [address] Eosinophils/Leukocytes Auto (Bld) [Pure # fraction] 0.0 E9/L Normal 0.0-0.5 [facility] Comment on above: Order Comment: Order Added by Discern Expert. Performed By: #### 2 634835, 2595073, 7642227, 37228628, 2734387 ####[facility] [address] [place] [address] Lymphocytes/100 WBC (Bld) 4.7 % Low 14.0-50.0 [facility] Comment on above: Order Comment: Order Added by Discern Expert. Performed By: #### 2 046503, 5378007, 7638663, 22850090, 8679860 ####[facility] [address] [place] [address] Lymphocytes/Leukocytes Auto (Bld) [Pure # fraction] 0.3 E9/L Low 1.0-4.0 [facility] Comment on above: Order Comment: Order Added by Cristiano Expert. Performed By: #### 2 987708, 9526012, 6678400, 11568270, 7558770 ####[address] [place] [address] Monocytes/100 WBC (Bld) 10.1 % Normal 4.0-14.0 [facility] Comment on above: Order Comment: Order Added by Cristiano Expert. Performed By: #### 2 524539, 3552044, 5275227, 48763032, 2192482 ####[address] [place] [address] Monocytes/Leukocytes Auto (Bld) [Pure # fraction] 0.7 E9/L Normal 0.2-1.0 [facility] Comment on above: Order Comment: Order Added by Cristiano Expert. Performed By: #### 2 299503, 3212912, 7528529, 93513299, 7185873 ####[facility] [address] [place] [address] Neutrophils/100 WBC (Bld) 84.0 % High 36.0-75.0 [facility] Comment on above: Order Comment: Order Added by Cristiano Expert. Performed By: #### 2 143444, 2602592, 0760917, 53746711, 7075154 ####[facility] [address] [place] [address] Neutrophils/Leukocytes Auto (Bld) [Pure # fraction] 5.6 E9/L Normal 2.0-7.5 [facility] Comment on above: Order Comment: Order Added by Discern Expert. Performed By: #### 2 887461, 0870483, 2791974, 35382697, 6283442 ####[facility] [address] [address] BMPon 03-02-2023 Anion gap [Moles/Vol] 8 mmol/L Normal 6-16 [facility] Comment on above: Order Comment: line packet sent up to floor...[facility] 03/02/2023 05:13:13 EDT Performed By: #### 2 712840, 7827385, 7659300, 98293772, 0533077 ####[facility] [address] [place] [address] Calcium [Mass/Vol] 8.1 mg/dL Low 8.9-11.1 [facility] Comment on above: Order Comment: line packet sent up to floor...[facility] 03/02/2023 05:13:13 EDT Performed By: #### 2 196365, 7044506, 0043565, 08298283, 1696877 ####[facility] [address] [facility] [place] [address] Chloride [Moles/Vol] 102 mmol/L Normal 101-111 [facility] Comment on above: Order Comment: line packet sent up to floor...[facility] 03/02/2023 05:13:13 EDT Performed By: #### 2 523404, 0017909, 7734611, 91048810, 9865854 ####[facility] [address] [place] [address] CO2 [Moles/Vol] 27 mmol/L Normal 21-31 [facility] Comment on above: Order Comment: line packet sent up to floor...[facility] 03/02/2023 05:13:13 EDT Performed By: #### 2 057771, 6497428, 8225600, 36866449, 1473978 ####[facility] [address] [facility] [place] [place] [address] Creatinine [Mass/Vol] 0.6 mg/dL Normal 0.5-1.3 [facility] Comment on above: Order Comment: line packet sent up to floor...[facility] 03/02/2023 05:13:13 EDT Performed By: #### 2 864221, 3660667, 0493450, 15996870, 1223357 ####[facility] [address] [place] [address] Glucose [Mass/Vol] 132 mg/dL Normal 55-199 [facility] Comment on above: Order Comment: line packet sent up to floor...[facility] 03/02/2023 05:13:13 EDT Result Comment: If t his glucose result represents a fasting glucose, interpretation should refer to the following reference range: 55-99 mg/dL Performed By: #### 2 636095, 9061766, 3932698, 68780408, 2457305 ####[facility] [address] [place] [address] Potassium [Moles/Vol] 3.9 mmol/L Normal 3.5-5.3 [facility] Comment on above: Order Comment: line packet sent up to floor...[facility] 03/02/2023 05:13:13 EDT Performed By: #### 2 136419, 0091827, 4891441, 73133412, 9280415 ####[facility] [address] [place] [address] Sodium [Moles/Vol] 133 mmol/L Low 135-145 [facility] Comment on above: Order Comment: line packet sent up to floor...[facility] 03/02/2023 05:13:13 EDT Performed By: #### 2 262545, 1231583, 0778427, 86911011, 7654733 ####[facility] [address] [place] [address] Urea nitrogen [Mass/Vol] 19 mg/dL Normal 5-21 [facility] Comment on above: Order Comment: line packet sent up to floor...[facility] 03/02/2023 05:13:13 EDT Performed By: #### 2 468922, 0312673, 8028820, 53314028, 4893490 ####[facility] [address] [place] [address] Urea nitrogen/Creatinine [Mass ratio] 32 No Units High 10-20 [facility] Comment on above: Order Comment: line packet sent up to floor...[facility] 03/02/2023 05:13:13 EDT Performed By: #### 2 707578, 0761005, 8384064, 34200153, 2005359 ####[facility] [address] [place] [address] CBC w/ Auto Diffon Erythrocyte distribution width (RBC) [Ratio] 17.5 % High 10.9-14.2 [facility] Comment on above: Performed By: #### 2 172612, 6880363, 6381951, 74579781, 6534835 ####[facility] [address] [place] [address] Hematocrit (Bld) [Volume fraction] 25.4 % Low 37.7-49.0 [facility] Comment on above: Performed By: #### 2 954206, 2352402, 5281781, 29090318, 8197229 ####[facility] [address] [place] [address] Hemoglobin (Bld) [Mass/Vol] 8.3 g/dL Low 13.5-17.5 [facility] Comment on above: Performed By: #### 2 159649, 8346530, 0155874, 67080973, 1586980 ####[facility] [address] [place] [address] MCH (RBC) [Entitic mass] 26.9 pg Low 27.0-34.0 [facility] Comment on above: Performed By: #### 2 708543, 9588683, 6165429, 78302823, 3369073 ####[facility] [address] [place] [address] MCHC (RBC) [Mass/Vol] 32.7 g/dL Normal 31.4-36.0 [facility] Comment on above: Performed By: #### 2 468452, 7450019, 9254666, 55146860, 9422196 ####[address] [address] MCV (RBC) [Entitic vol] 82.3 fL Normal 80.0-100.0 [facility] Comment on above: Performed By: #### 2 251343, 8607522, 4654576, 05588202, 5350508 ####[address] [address] Platelet mean volume (Bld) [Entitic vol] 8.5 fL Normal 6.4-10.8 [facility] Comment on above: Performed By: #### 2 448828, 6497079, 7076276, 63710380, 1247983 ####[address] [address] Platelets (Bld) [#/Vol] 152.0 E9/L Normal 150.0-500.0 [facility] Comment on above: Performed By: #### 2 532325, 1441834, 6626793, 58060701, 6107708 ####[address] [address] RBC (Bld) [#/Vol] 3.1 E12/L Low 4.3-5.9 [facility] Comment on above: Performed By: #### 2 585039, 7772361, 3336146, 60313172, 9023154 ####[address] [address] WBC corrected for nucl RBC Auto (Bld) [#/Vol] 6.7 E9/L Normal 4.0-11.0 [facility] Comment on above: Performed By: #### 2 220892, 3374788, 6009908, 33857157, 9923765 ####[address] [place] [address] CHEMISTRYOrdered By: SYSTEM SYSTEM on 03-02-2023 CK [Catalytic activity/Vol] 197 [iU]/d Normal 14 - 261 Int._Unit/L [facility] Remisol CKon 03-02-2023 CK [Catalytic activity/Vol] 197 Int._Unit/L Normal 14-261 [facility] Comment on above: Performed By: #### 2 671666, 1455210, 1037917, 57224598, 9316290 ####[facility] [address] [place] [address] Capillary Glucose POCon 02-08 Glucose [Mass/Vol] 98 mg/dL Normal 55-99 [facility] Comment on above: Result Comment: Nuno MARIN Performed By: #### 2 34972027 ####[facility] [address] [place] [address] Glucose [Mass/Vol] 96 mg/dL Normal 55-99 [facility] Comment on above: Result Comment: Nuno MARIN Performed By: #### 2 00649183 ####[facility] [address] [place] [address] Glucose [Mass/Vol] 164 mg/dL High 55-99 [facility] Comment on above: Result Comment: Nuno MARIN Performed By: #### 2 74756674 ####[facility] [address] [place] [address] Glucose [Mass/Vol] 112 mg/dL High 55-99 [facility] Comment on above: Result Comment: Nuno MARIN Performed By: #### 2 80906150 ####[facility] [address] [place] [address] Glucose [Mass/Vol] 111 mg/dL High 55-99 [facility] Comment on above: Result Comment: Nuno MARIN Performed By: #### 2 07098069 ####[facility] [address] [place] [address] Ferritinon 03-02-2023 Ferritin [Mass/Vol] 86 ng/mL Normal 24-336 [facility] Comment on above: Result Comment: NORM ALS MEN <30 YRS 16-132 ng/mL MEN >30 YRS 8-338 ng/mL WOMEN (PREMEN) 6-104 ng/mL WOMEN (POSTMEN) 12-210 ng/mL Performed By: #### 2 826479, 5332039, 23438673, 7196448, 7750126, 1099678, 55748504, 90955325, 9109787, 23938137 ####[facility] [address] [place] [address] Folateon 03-02-2023 Folate [Mass/Vol] 19.8 ng/mL Normal >=6.7 [facility] Comment on above: Performed By: #### 2 718819, 3812879, 09379419, 2552566, 3896770, 6977597, 51702854, 90320232, 1749938, 02743581 ####[facility] [address] [place] [address] Interdisciplinary Note - Michelte e Manageron 03-02-2023 Interdisciplinary Note - 3D Designer Normal [facility] Comment on above: Result Comment: Elec tronically Signed By: Leona Schwarz RN\.br\Date and Time Signed: 03/02/23 11:48 EDT Progress Note-Physicianon Progress Note-Physician Normal [facility] Comment on above: Result Comment: Elec tronically Signed By: Lynda Carrero RN\.br\Date and Time Signed: 03/02/23 09:23 EDT\.br\Electronically Co-Signed By: Andrea Lomax MD\.br\Date and Time Co-Signed: 03/02/23 09:35 EDT Vit B12on 03-02-2023 Cobalamin (Vitamin B12) [Mass/Vol] 1175 pg/mL Normal 50-1500 [facility] Comment on above: Performed By: #### 2 356890, 39600269, 0774299, 41114272, 9498118, 42225586, 35547174, 4780157 ####[facility] [address] [place] [address] eGFRon 03-02-2023 GFR/1.73 sq M.predicted among non-blacks MDRD (S/P/Bld) [Vol rate/Area] 100 mL/min/1.73 m2 Normal >=59 [facility] Comment on above: Order Comment: Order added by Discern Expert. Result Comment: Towing Pilot alen kidney disease could be indicated at eGFR's of less than 60 mL/min/1.73m2. Kidney failure is indicated at less than 15 mL/min/1.73m2. Performed By: #### 2 689545, 4992371, 9460119, 45025102, 6753895 ####[facility] [address] [place] [address] ABO/Rhon 03-01-2023 ABO/Rh Positive Invalid Interpretation Code [facility] Comment on above: Performed By: #### 2 990681, 6046017, 57832607, 1472573, 8333399, 5679389, 44165544, 63130932, 6855171, 56635831 ####[facility] [address] [place] [address] ABO/Rh History Checkon 03-01 ABO/Rh History Check Type verified by se cond s Normal [facility] Comment on above: Performed By: #### 2 558885, 9209662, 77548604, 6358798, 9433221, 5627024, 33880984, 24339756, 4616861, 35693271 ####[address] [place] [address] ABO/Rh Retypeon 03-01-2023 ABO/Rh Retype Interp Positive Invalid Interpretation Code [facility] Comment on above: Performed By: #### 2 165390, 02741372, 7269156, 43183110, 7043025, 54749341, 22201196, 6096274 ####[facility] [address] [place] [address] ABSCon 03-01-2023 ABSC Gel Interp Negative Normal [facility] Comment on above: Performed By: #### 2 480481, 2334088, 89713529, 6075608, 2710101, 5554646, 68758899, 13710254, 4009120, 57533627 ####[facility] [address] [place] [address] Auto Diffon 03-01-2023 Basophils/100 WBC (Bld) 0.6 % Normal 0.0-2.0 [facility] Comment on above: Order Comment: Order Added by Discern Expert. Performed By: #### 2 659162, 11015611, 6290281, 08214242, 4354047, 46430350, 33448251, 1706570 ####[address] [place] [address] Basophils/Leukocytes Auto (Bld) [Pure # fraction] 0.0 E9/L Normal 0.0-0.2 [facility] Comment on above: Order Comment: Order Added by Discern Expert. Performed By: #### 2 400662, 77761533, 3532257, 95928539, 9471820, 73642774, 54035838, 3233606 ####[address] [place] [address] Eosinophils/100 WBC (Bld) 0.5 % Normal 0.0-8.0 [facility] Comment on above: Order Comment: Order Added by Discern Expert. Performed By: #### 2 496473, 24386551, 9745490, 66926496, 9640316, 77437432, 39250685, 3339861 ####[address] [place] [address] Eosinophils/Leukocytes Auto (Bld) [Pure # fraction] 0.0 E9/L Normal 0.0-0.5 [facility] Comment on above: Order Comment: Order Added by Discern Expert. Performed By: #### 2 200147, 73348537, 3820684, 85079920, 8673424, 68564196, 63941978, 5921151 ####[address] [place] [address] Lymphocytes/100 WBC (Bld) 8.7 % Low 14.0-50.0 [facility] Comment on above: Order Comment: Order Added by Discern Expert. Performed By: #### 2 168475, 51572739, 3098351, 99066412, 0560893, 19253077, 48299124, 6572456 ####[facility] [address] [place] [address] Lymphocytes/Leukocytes Auto (Bld) [Pure # fraction] 0.5 E9/L Low 1.0-4.0 [facility] Comment on above: Order Comment: Order Added by Discern Expert. Performed By: #### 2 188714, 21003018, 5393720, 62711990, 2899960, 58155490, 75149676, 1937207 ####[address] [place] [address] Monocytes/100 WBC (Bld) 11.3 % Normal 4.0-14.0 [facility] Comment on above: Order Comment: Order Added by Discern Expert. Performed By: #### 2 501792, 30644409, 0690606, 42043597, 7726867, 98815241, 10703512, 7302173 ####[address] [place] [address] Monocytes/Leukocytes Auto (Bld) [Pure # fraction] 0.6 E9/L Normal 0.2-1.0 [facility] Comment on above: Order Comment: Order Added by Discern Expert. Performed By: #### 2 638573, 90380548, 3940992, 39453504, 3170229, 80832148, 39148221, 2286488 ####[facility] [address] [place] [address] Neutrophils/100 WBC (Bld) 78.9 % High 36.0-75.0 [facility] Comment on above: Order Comment: Order Added by Discern Expert. Performed By: #### 2 452160, 91707292, 5027589, 76628672, 2011336, 90591066, 20484753, 7368042 ####[address] [place] [address] Neutrophils/Leukocytes Auto (Bld) [Pure # fraction] 4.3 E9/L Normal 2.0-7.5 [facility] Comment on above: Order Comment: Order Added by Discern Expert. Performed By: #### 2 287722, 11003832, 9001248, 96961980, 9771958, 39322882, 09904663, 5598047 ####[facility] [address] [place] [address] BLOOD BANKOrdered By: Fabi Massey on 03-01-2023 ABO/Rh Interp Positive Invalid Interpretation Code [facility] BB Subsection ABSC Gel Interp Negative (03/01/23 8:13 AM) Normal [facility] BB Subsection ABO/Rh Retype Interp Positive Invalid Interpretation Code [facility] BB Subsection Blood Bank ID#on 03-01-2023 BBID# [id number] Invalid Interpretation Code [facility] Comment on above: Performed By: #### 2 412160, 4252374, 89107367, 2956676, 6791613, 2395428, 24815340, 08220296, 7433193, 04284038 ####[facility] [address] [place] [address] CBC w/ Auto Diffon Erythrocyte distribution width (RBC) [Ratio] 19.2 % High 10.9-14.2 [facility] Comment on above: Performed By: #### 2 642371, 02224529, 1005704, 80160387, 1678512, 01703406, 68921958, 2388909 ####[facility] [address] [place] [address] Hematocrit (Bld) [Volume fraction] 19.9 % Low 37.7-49.0 [facility] Comment on above: Performed By: #### 2 515319, 14268552, 6113965, 88608724, 9600632, 31592429, 41505798, 5484504 ####[facility] [address] [place] [address] Hemoglobin (Bld) [Mass/Vol] 6.5 g/dL Abnormal 13.5-17.5 [facility] Comment on above: Result Comment: Resu lts Called To Isaac/Angela Mendez By BC_ And Read Back For Confirmation On 03/01/2023 07:50:53 EDTResults Verified By Repeat Analysis Performed By: #### 2 122934, 61202070, 8497647, 43860123, 7089146, 72830895, 84105283, 5028903 ####[facility] [address] [place] [address] MCH (RBC) [Entitic mass] 26.9 pg Low 27.0-34.0 [facility] Comment on above: Performed By: #### 2 215793, 99866495, 4806145, 13785410, 0880754, 04739027, 91222414, 1490473 ####[facility] [address] [place] [address] MCHC (RBC) [Mass/Vol] 32.6 g/dL Normal 31.4-36.0 [facility] Comment on above: Performed By: #### 2 612142, 02164764, 1605513, 32881439, 7169242, 69231224, [id number], [id number] ####[address] [place] [address] MCV (RBC) [Entitic vol] 82.3 fL Normal 80.0-100.0 [facility] Comment on above: Performed By: #### 2 408463, 96178885, 3774343, 94341058, 6557193, 06029950, 98181846, 7952932 ####[facility] [address] [place] [address] Platelet mean volume (Bld) [Entitic vol] 8.9 fL Normal 6.4-10.8 [facility] Comment on above: Performed By: #### 2 921419, 03766047, 6751348, 01444065, 6222685, 50074946, 77096900, 3361182 ####[address] [place] [address] Platelets (Bld) [#/Vol] 161.0 E9/L Normal 150.0-500.0 [facility] Comment on above: Performed By: #### 2 958078, 78618032, 8184232, 20424330, 9010355, 52868251, 93537917, 4272216 ####[facility] [address] [place] [address] RBC (Bld) [#/Vol] 2.4 E12/L Low 4.3-5.9 [facility] Comment on above: Performed By: #### 2 889570, 89799470, 1543221, 60872206, 4658677, 09762553, 70627768, 6116976 ####[facility] [address] [place] [address] WBC corrected for nucl RBC Auto (Bld) [#/Vol] 5.5 E9/L Normal 4.0-11.0 [facility] Comment on above: Performed By: #### 2 457223, 15272254, 1476059, 41209018, 8973728, 06916504, 87085196, 6625397 ####[facility] [address] [place] [address] CHEMISTRYOrdered By: SYSTEM SYSTEM on 03-01-2023 Ferritin [...] 03-01-2023 Albumin [Mass/Vol] 2.2 g/dL Low 3.3-5.0 [facility] Comment on above: Performed By: #### 2 817567, 12162590, 4798307, 85439831, 1604168, 45535003, 02999242, 6414100 ####[facility] [address] [place] [address] Albumin/Globulin (S) [Mass conc ratio] 0.5 Low 1.1-2.2 [facility] Comment on above: Performed By: #### 2 288215, 12107551, 4815409, 79626717, 1289444, 27815101, 81094935, 6376337 ####[facility] [address] [place] [address] ALP [Catalytic activity/Vol] 77 Int._Unit/L Normal 21-98 [facility] Comment on above: Performed By: #### 2 972786, 09414914, 6636820, 54210477, 5918789, 86394908, 46945867, 9195684 ####[facility] [address] [place] [address] ALT No additional P-5'-P [Catalytic activity/Vol] 24 Int._Unit/L Normal 6-46 [facility] Comment on above: Performed By: #### 2 953222, 67000923, 1114086, 48843563, 4200288, 77904925, 53530855, 9151602 ####[facility] [address] [place] [address] Anion gap [Moles/Vol] 8 mmol/L Normal 6-16 [facility] Comment on above: Performed By: #### 2 097632, 57474276, 8527089, 18301968, 0074124, 93561847, 83960436, 3697711 ####[facility] [address] [place] [address] AST [Catalytic activity/Vol] 34 Int._Unit/L Normal 5-43 [facility] Comment on above: Performed By: #### 2 644032, 55191191, 0193692, 79889638, 5702552, 29531755, 79339842, 3693286 ####[facility] [address] [place] [address] Bilirubin [Mass/Vol] 0.6 mg/dL Normal 0.0-1.1 [facility] Comment on above: Performed By: #### 2 525969, 46024224, 4763453, 88986011, 1184251, 73145138, 03971762, 8184531 ####[facility] [address] [place] [address] Calcium [Mass/Vol] 8.1 mg/dL Low 8.9-11.1 [facility] Comment on above: Performed By: #### 2 342006, 29975180, 2752903, 61139860, 0881897, 89027734, 54607773, 8443494 ####[facility] [address] [place] [address] Chloride [Moles/Vol] 99 mmol/L Low 101-111 Fish er [facility] Comment on above: Performed By: #### 2 176830, 25126307, 3846022, 90636225, 2366925, 79151668, 34921718, 8796870 ####[facility] [address] [place] [address] CO2 [Moles/Vol] 28 mmol/L Normal 21-31 [facility] Comment on above: Performed By: #### 2 729116, 10331245, 1206322, 16831984, 3048011, 20855711, 98180193, 2506289 ####[facility] [address] [place] [address] Creatinine [Mass/Vol] 0.5 mg/dL Normal 0.5-1.3 [facility] Comment on above: Performed By: #### 2 456694, 32089273, 0121580, 97054359, 5668017, 43175840, 60028037, 9543303 ####[facility] [address] [place] [address] Globulin (S) [Mass/Vol] 4.1 g/dL High 1.4-4.0 [facility] Comment on above: Performed By: #### 2 541285, 45873424, 8618065, 63966744, 8917529, 65089905, 08439348, 8300323 ####[facility] [address] [place] [address] Glucose [Mass/Vol] 110 mg/dL Normal 55-199 [facility] Comment on above: Result Comment: If t his glucose result represents a fasting glucose, interpretation should refer to the following reference range: 55-99 mg/dL Performed By: #### 2 564062, 64245392, 7683051, 17903994, 2922691, 15873014, 71442548, 9978464 ####[facility] [address] [place] [address] Potassium [Moles/Vol] 4.0 mmol/L Normal 3.5-5.3 [facility] Comment on above: Performed By: #### 2 040181, 22204593, 3535649, 18720755, 5173754, 92167877, 27678790, 2516736 ####[facility] [address] [place] [address] Protein [Mass/Vol] 6.3 g/dL Normal 6.0-7.8 [facility] Comment on above: Performed By: #### 2 084652, 62162937, 0665406, 53827462, 3878100, 99466490, 91195370, 9097975 ####[facility] [address] [place] [address] Sodium [Moles/Vol] 131 mmol/L Low 135-145 [facility] Comment on above: Performed By: #### 2 929554, 84653629, 1815119, 40433353, 8076105, 46424441, 17952192, 7897610 ####[facility] [address] [place] [address] Urea nitrogen [Mass/Vol] 22 mg/dL High 5-21 [facility] Comment on above: Performed By: #### 2 628540, 63971281, 5997368, 27719263, 9459976, 30975452, 08968581, 4886861 ####[facility] [address] [place] [address] Urea nitrogen/Creatinine [Mass ratio] 44 No Units High 10-20 [facility] Comment on above: Performed By: #### 2 585587, 40335789, 8066140, 12012412, 6855608, 49477565, 09443047, 8838976 ####[facility] [address] [place] [address] Capillary Glucose POCon 05- Glucose [Mass/Vol] 160 mg/dL High 55-99 [facility] Comment on above: Result Comment: Nuno aranda RN/ Performed By: #### 2 23549259 ####[facility] [address] [place] [address] Glucose [Mass/Vol] 110 mg/dL High 55-99 [facility] Comment on above: Result Comment: Nuno aranda RN/ Performed By: #### 2 75491993 ####[facility] [address] [place] [address] Glucose [Mass/Vol] 173 mg/dL High 55-99 [facility] Comment on above: Result Comment: Nuno MARIN Performed By: #### 2 13559488 ####[facility] [address] [place] [address] Glucose [Mass/Vol] 128 mg/dL High 55-99 [facility] Comment on above: Result Comment: Nuno MARIN Performed By: #### 2 [id number] ####[facility] [address] [place] [address] Consultation Noteon 03-01-20 Consultation Note Normal [facility] Comment on above: Result Comment: Elec tronically Signed By: Win GUARDADO, Ольга Roman\.br\Date and Time Signed: 03/01/23 07:00 EDT\.br\Electronically Co-Signed By: Andrea Lomax MD\.br\Date and Time Co-Signed: 03/01/23 09:00 EDT HEMATOLOGYOrdered By: Fabi Herbert on 03-01-2023 Reticulocytes/100 RBC (Bld) 1.6 % High 0.5 - 1.5 % [facility] HemeAutoSS Comment on above: Result Comment: This Reticulocyte Count Has Been Corrected For Anemia Anisocytosis Ql (Bld) Present (03/01/23 5:30 AM) Normal [facility] HemeManSS Hypochromia Auto Ql (Bld) Present (03/01/23 5:30 AM) Normal [facility] HemeManSS Morphology Jah (Bld) [Interp] See Morphology (03/01/23 5:30 AM) Normal [facility] HemeManSS Interdisciplinary Note - Michelet e Manageron 03-01-2023 Interdisciplinary Note - 3D Designer Normal [facility] Comment on above: Result Comment: Elec tronically Signed By: Chong GUARDADO, Leona\.fabio\Date and Time Signed: 03/01/23 11:25 EDT Interdisciplinary Note - Soc ial Workeron 03-01-2023 Interdisciplinary Note - Deli Department Manager Normal [facility] Ironon 03-01-2023 Iron [Mass/Vol] 21 microgram/dL Low 35-153 Fish er [facility] Comment on above: Performed By: #### 2 618644, 4752272, 60833081, 4440030, 6206191, 5529657, 43047851, 33024014, 5614523, 39741047 ####[facility] [address] [place] [address] LDHon 03-01-2023 LDH [Catalytic activity/Vol] 127 Int._Unit/L Normal 93-218 [facility] Comment on above: Performed By: #### 2 979975, 1569757, 67424847, 4311986, 0419921, 4240837, 74123429, 19001253, 0244733, 23368303 ####[facility] [address] [place] [address] MRI Brain w/o Contraston MRI Brain w/o Contrast Normal [facility] Morphon 03-01-2023 Anisocytosis Ql (Bld) Present Normal [facility] Comment on above: Order Comment: Order Added by Discern Expert. Performed By: #### 2 232328, 05018722, 2007863, 47159257, 8923222, 68062021, 00627665, 6122316 ####[facility] [address] [place] [address] Hypochromia Auto Ql (Bld) Present Normal [facility] Comment on above: Order Comment: Order Added by Discern Expert. Performed By: #### 2 964836, 77415354, 4743256, 76090571, 0211831, 40993196, 61641812, 2750806 ####[facility] [address] [place] [address] Morphology Jah (Bld) [Interp] See Morphology Normal [facility] Comment on above: Order Comment: Order Added by Discern Expert. Performed By: #### 2 576181, 73087898, 8573777, 51293691, 4943988, 36833031, 02806063, 6529053 ####[facility] [address] [place] [address] Progress Note-Physicianon Progress Note-Physician Normal [facility] Comment on above: Result Comment: Elec tronically Signed By: Chong Coe M.D\.br\Date and Time Signed: 03/01/23 14:52 EDT Progress Note-Physician Normal [facility] Comment on above: Result Comment: Elec tronically Signed By: FAVIAN WISE, Shayy\.br\Date and Time Signed: 03/01/23 09:01 EDT RAD - MRI Screening Formon 0 03-01-2023 RAD - MRI Screening Form [id number]: 127 Normal [facility] RAD - MRI Screening Form [id number]:1 27 Normal [facility] RCOon 03-01-2023 # of Units 2 Invalid Interpretation Code [facility] Comment on above: Result Comment: 03/01 9:30 [id number] product ready and called to Emerald Castillo/ Isaac at 03/01/2023 09:29:57 EDT by BR. Performed By: #### 1 [id number] ####[facility] [address] [place] [address] Date Required 03/01/2023 Invalid Interpretation Code [facility] Comment on above: Performed By: #### 1 3170029 ####[facility] [address] Product Type None Required Invalid Interpretation Code [facility] Comment on above: Performed By: #### 1 1099920 ####[facility] [address] [place] [address] Retic Counton 03-01-2023 Reticulocytes/100 RBC (Bld) 1.6 % High 0.5-1.5 [facility] Comment on above: Result Comment: This Reticulocyte Count Has Been Corrected For Anemia Performed By: #### 2 045891, 5151088, 49360943, 3026338, 0672722, 1362020, 50576813, 53056904, 2470702, 07300490 ####[facility] [address] [place] [address] TIBC Calculatedon 03-01-2023 Iron binding capacity [Mass/Vol] 290 microgram/dL Normal 250-400 [facility] Comment on above: Performed By: #### 2 584897, 6934391, 20427735, 2567392, 9669794, 5618478, 12149735, 88771961, 4931428, 65655096 ####[facility] [address] [place] [address] Transferrin [Mass/Vol] 207 mg/dL Normal 200-370 [facility] Comment on above: Performed By: #### 2 407812, 9426213, 43280155, 3222304, 5728830, 6055615, 70856582, 16890536, 0050530, 94660651 ####[facility] [address] [place] [address] TSH With T4fr Reflexon 03-01 TSH Qn 0.95 m[IU]/L Normal 0.34-5.60 [facility] Comment on above: Performed By: #### 2 382441, 77312106, 5168335, 22873491, 0927720, 42013115, 33725125, 4821401 ####[facility] [address] [place] [address] eGFRon 03-01-2023 GFR/1.73 sq M.predicted among non-blacks MDRD (S/P/Bld) [Vol rate/Area] 106 mL/min/1.73 m2 Normal >=59 [facility] Comment on above: Order Comment: Order added by Discern Expert. Result Comment: Towing Pilot alen kidney disease could be indicated at eGFR's of less than 60 mL/min/1.73m2. Kidney failure is indicated at less than 15 mL/min/1.73m2. Performed By: #### 2 642084, 79323994, 8450690, 54772584, 9262278, 62193121, 06467778, 2443419 ####[facility] [address] [place] [address] Capillary Glucose POCon 02-08 Glucose [Mass/Vol] 212 mg/dL High 55-99 [facility] Comment on above: Result Comment: Nuno MARIN Performed By: #### 2 96377911 ####[facility] [address] [place] [address] Glucose [Mass/Vol] 134 mg/dL [facility] [address] [place] [address] Comment on above: Result Comment: Nuno MARIN Performed By: #### 2 62460716 ####[facility] [address] [place] [address] Glucose [Mass/Vol] 157 mg/dL High - [facility] Comment on above: Result Comment: Nuno MARIN Performed By: #### 2 77586620 ####[facility] [address] [place] [address] Glucose [Mass/Vol] 126 mg/dL [address] Comment on above: Result Comment: Nuno MARIN Performed By: #### 2 [id number] ####[address] [address] Interdisciplinary Note - Michelet e Manageron 02-28-2023 Interdisciplinary Note - 3D Designer [facility] Comment on above: Result Comment: Elec tronically Signed By: Chong GUARDADO, Leona\.fabio\Date and Time Signed: 02/28/23 12:21 EDT Interdisciplinary Note - Nut ritionon 02-28-2023 Interdisciplinary Note - Nutrition Pt reassessed. 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 otherwise, pt demonstrates poor appetite, but accepts supplements/nourishments . Goal not met, continue POC. Normal [facility] Comment on above: Result Comment: Elec tronically Signed By: Lucas MEADOWS, SARITA., Misty\.br\Date and Time Signed: 02/28/23 13:34 EDT BMPon 02-27-2023 Anion gap [Moles/Vol] 10 mmol/L Normal 6-16 [facility] Comment on above: Performed By: #### 2 149744, 61857384 ####[facility] [address] [place] [address] Calcium [Mass/Vol] 8.1 mg/dL Low 8.9-11.1 [facility] Comment on above: Performed By: #### 2 319434, 40947186 ####[facility] [address] [place] [address] Chloride [Moles/Vol] 98 mmol/L Low 101-111 Fish [facility] Comment on above: Performed By: #### 2 321175, 90091367 ####[facility] [address] [place] [address] CO2 [Moles/Vol] 28 mmol/L Normal 21-31 [facility] Comment on above: Performed By: #### 2 673654, 11496967 ####[facility] [address] [place] [address] Creatinine [Mass/Vol] 0.6 mg/dL Normal 0.5-1.3 [facility] Comment on above: Performed By: #### 2 939205, 52119080 ####[facility] [address] [place] [address] Glucose [Mass/Vol] 147 mg/dL Normal 55-199 [facility] Comment on above: Result Comment: If t his glucose result represents a fasting glucose, interpretation should refer to the following reference range: 55-99 mg/dL Performed By: #### 2 025430, 79581775 ####[facility] [address] [place] [address] Potassium [Moles/Vol] 3.6 mmol/L Normal 3.5-5.3 [facility] Comment on above: Performed By: #### 2 460844, 78687206 ####[facility] [address] [place] [address] Sodium [Moles/Vol] 132 mmol/L Low 135-145 [facility] Comment on above: Performed By: #### 2 392622, 85804776 ####[facility] [address] [place] [address] Urea nitrogen [Mass/Vol] 28 mg/dL High 5-21 [facility] Comment on above: Performed By: #### 2 478909, 81958832 ####[facility] [address] [place] [address] Urea nitrogen/Creatinine [Mass ratio] 47 No Units High 10-20 [facility] Comment on above: Performed By: #### 2 905931, 90334966 ####[facility] [address] [place] [address] Capillary Glucose POCon 05 Glucose [Mass/Vol] 95 mg/dL Normal 55-99 [facility] Comment on above: Result Comment: Nuno MARIN Performed By: #### 2 98990108 ####[facility] [address] [place] [address] Glucose [Mass/Vol] 115 mg/dL High 55-99 [facility] Comment on above: Result Comment: Nuno MARIN Performed By: #### 2 74348263 ####[facility] [address] [place] [address] Glucose [Mass/Vol] 153 mg/dL High 55-99 [facility] Comment on above: Result Comment: Nuno MARIN Performed By: #### 2 16487648 ####[facility] [address] [place] [address] Glucose [Mass/Vol] 111 mg/dL High 55-99 [facility] Comment on above: Result Comment: Nuno MARIN Performed By: #### 2 35436795 ####[facility] [address] [place] [address] Interdisciplinary Note - Michelet e Manageron 02-27-2023 Interdisciplinary Note - 3D Designer Normal [facility] Comment on above: Result Comment: Elec tronically Signed By: Sonia Morejonbr\Date and Time Signed: 02/27/23 15:31 EDT Progress Note-Physicianon Progress Note-Physician Normal [facility] Comment on above: Result Comment: Elec tronically Signed By: Beti HERRING MDbr\Date and Time Signed: 02/27/23 10:31 EDT eGFRon 02-27-2023 GFR/1.73 sq M.predicted among non-blacks MDRD (S/P/Bld) [Vol rate/Area] 100 mL/min/1.73 m2 Normal >=59 [facility] Comment on above: Order Comment: Order added by Discern Expert. Result Comment: Towing Pilot alen kidney disease could be indicated at eGFR's of less than 60 mL/min/1.73m2. Kidney failure is indicated at less than 15 mL/min/1.73m2. Performed By: #### 2 411638, [id number] ####[facility] [address] [place] [address] CT Head or Brain w/o Contras ton 02-26-2023 CT Head or Brain w/o Contrast Normal [facility] CT Spine Cervical w/o Contra ston 02-26-2023 CT Spine Cervical w/o Contrast Normal [facility] Capillary Glucose POCon 02-08 Glucose [Mass/Vol] 127 mg/dL High 55-99 [facility] Comment on above: Result Comment: Nuno MARIN Performed By: #### 2 [id number] ####[facility] [address] [place] [address] Glucose [Mass/Vol] 121 mg/dL High 55-99 [facility] Comment on above: Result Comment: Nuno MARIN Performed By: #### 2 [id number] ####[facility] [address] [place] [address] Glucose [Mass/Vol] 169 mg/dL High - [facility] Comment on above: Result Comment: Nuno aranda RN/ Performed By: #### 2 [id number] ####[facility] [address] [place] [address] Glucose [Mass/Vol] 140 mg/dL High 55-99 [facility] Comment on above: Result Comment: Nuno aranda RN/ Performed By: #### 2 [id number] ####[facility] [address] [place] [address] Glucose [Mass/Vol] 169 mg/dL High 55-99 [facility] Comment on above: Performed By: #### 2 [id number] ####[facility] [address] [place] [address] Interdisciplinary Note - Michelet e Manageron 02-26-2023 Interdisciplinary Note - 3D Designer Normal [facility] Comment on above: Result Comment: Elec tronically Signed By: Sonia Morejon\Otiliabr\Date and Time Signed: 02/26/23 10:51 EDT Progress Note-Physicianon Progress Note-Physician Normal [facility] Comment on above: Result Comment: Elec tronically Signed By: Ramos HERRING MD\.br\Date and Time Signed: 02/26/23 10:17 EDT Capillary Glucose POCon 02-07 Glucose [Mass/Vol] 133 mg/dL High 55-99 [facility] Comment on above: Result Comment: Nuno MARIN Performed By: #### 2 [id number] ####[facility] [address] [place] [address] Glucose [Mass/Vol] 91 mg/dL Normal 55-99 [facility] Comment on above: Result Comment: Sayra feldman Meter Performed By: #### 2 [id number] ####[facility] [address] [place] [address] Glucose [Mass/Vol] 155 mg/dL High 55-99 [facility] Comment on above: Result Comment: Nuno MARIN Performed By: #### 2 [id number] ####[facility] [address] [place] [address] Consultation Noteon 02-26-20 Consultation Note Normal [facility] Comment on above: Result Comment: Elec tronically Signed By: Chong Coe M.D\.br\Date and Time Signed: 02/25/23 09:21 EDT Interdisciplinary Note - Michelet e Manageron 02-25-2023 Interdisciplinary Note - 3D Designer Normal [facility] Comment on above: Result Comment: Elec tronically Signed By: Alla Choe RN\.br\Date and Time Signed: 02/25/23 13:11 EDT Interdisciplinary Note - Ashley n 02-25-2023 Interdisciplinary Note - OT Normal [facility] Interdisciplinary Note - PTo n 02-25-2023 Interdisciplinary Note - PT Normal [facility] Progress Note-Physicianon Progress Note-Physician Normal [facility] Comment on above: Result Comment: Elec tronically Signed By: Paul Tinajero MD\.br\Date and Time Signed: 02/25/23 21:58 EDT Progress Note-Physician Normal [facility] Comment on above: Result Comment: Elec tronically Signed By: NEVAEH WISE, Ramos\.br\Date and Time Signed: 02/25/23 11:37 EDT CHEMISTRYOrdered By: Caity Roman on 02-24-2023 CK [Catalytic activity/Vol] 21 [iU]/d Normal 14 - 261 Int._Unit/L [facility] Remisol CHEMISTRYOrdered By: Fidel Peterson on 02-24-2023 HbA1c (Bld) [Mass fraction] 5.2 % Normal <=5.9% [facility] ChemAutoSS CHEMISTRYOrdered By: SYSTEM SYSTEM on 02-23-2023 [...] Nom (U) No growth at 2 days. [facility] No Panel InformationOrdered By: Meaghan Pinzon on 02-23-2023 Blood Culture Charcoal No growth at 7 days. [facility] Blood Culture Charcoal No growth at 7 days. [facility] URINALYSISOrdered By: Elodia puckett on 02-23-2023 Bacteria [...] AM) Normal Negative [facility] UA Auto SS Stoy.plasma/Stoy. RBC (Bld) [Mass ratio] 0-3 /HPF Normal [...] Comment: cath . specimen Urobilinogen Qn (U) [id number] {Mercedes'U}/dL Normal 0.0 - 1.0 EU/dL [facility] [...] 0.0 % Normal 0.0 - 2.0 % FT [...] E9/L Normal 150. 0 - 500.0 E9/L [facility] HemeAutoSS RBC (Bld) [#/Vol] 3.0 E12/L Low 4.3 - 5.9 E12/L [facility] HemeAutoSS WBC corrected for nucl RBC Auto (Bld) [#/Vol] 10.1 E9/L Normal 4.0 - 11.0 E9/L [facility] HemeAutoSS CBC W MANUAL DIFFon 02-10-20 ANISOCYTOSIS 1+ Normal [facility] Comment on above: Performed By: #### C BCMAN #### [facility] [address] [place] [address] Dr. Joselyn Coffey ATYPICAL LYMPH # Normal [facility] Comment on above: Performed By: #### C ESTHELA #### [facility] [address] [place] [address] Dr. Joselyn Coffey ATYPICAL LYMPH % Normal [facility] Comment on above: Performed By: #### C ESTHELA #### [facility] [address] [place] [address] Dr. Joselyn MARMOLEJO # Normal 0.0-0.3 [facility] Comment on above: Performed By: #### C ESTHELA #### [facility] [address] [place] [address] Dr. Joselyn MARMOLEJO % Normal 0-5 [facility] Comment on above: Performed By: #### C ESTHELA #### [facility] [address] [place] [address] Dr. Joselyn Coffey BASOM # 0.00 103/ul Normal 0.00-0.10 [facility] Comment on above: Performed By: #### C ESTHELA #### [facility] [address] [place] [address] Dr. Joselyn Coffey BASOM % 0.0 % Critically low 0.2-2.0 [facility] Comment on above: Performed By: #### C BCDEV #### [facility] [address] [place] [address] Dr. Joselyn Coffey BLAST # Normal [facility] Comment on above: Performed By: #### C BCDEV #### [facility] [address] [place] [address] Dr. Joselyn Coffey BLAST % Normal [facility] Comment on above: Performed By: #### C BCMAN #### [facility] [address] [place] [address] Dr. Joselyn Coffey CORRECTED WBC Normal 4.0-11.0 [facility] Comment on above: Performed By: #### C BCMAN #### [facility] [address] [place] [address] Dr. Joselyn Coffey EOS # 0.00 103/ul Normal 0.00-0.70 [facility] Comment on above: Performed By: #### C BCMAN #### [facility] [address] [place] [address] Dr. Joselyn Coffey EOS% 0.0 % Critically low 0.9-7.0 [facility] Comment on above: Performed By: #### C BCDEV #### [facility] [address] [place] [address] Dr. Joselny Coffey HCT 26.7 % Critically low 42.0-54.0 [facility] Comment on above: Performed By: #### C BCDEV #### [facility] [address] [place] [address] Dr. Joselyn Coffey HGB 8.3 g/dl Critically low 14.0-18.0 [facility] Comment on above: Performed By: #### C BCDEV #### [facility] [address] [place] [address] Dr. Joselyn Coffey HYPOCHROMASIA 2+ Normal [facility] Comment on above: Performed By: #### C BCMAN #### [facility] [address] [place] [address] Dr. Joselyn Coffey LYMPHM # 0.17 103/ul Critically low 1.20-3.80 [facility] Comment on above: Performed By: #### C BCMAN #### [facility] [address] [place] [address] Dr. Joselyn Coffey LYMPHM% 3.0 % Critically low 20.5-60.0 [facility] Comment on above: Performed By: #### C BCMAN #### [facility] [address] [place] [address] Dr. Joselyn Coffey MCH 28.3 pg Normal 25.9-34.0 [facility] Comment on above: Performed By: #### C ESTHELA #### [facility] [address] [place] [address] Dr. Joselyn Coffey MCHC 31.1 g/dl Normal 29.9-35.2 [facility] Comment on above: Performed By: #### C ESTHELA #### [facility] [address] [place] [address] Dr. Joselyn Coffey MCV 91.1 fL Normal 80.0-94.0 [facility] Comment on above: Performed By: #### C ESTHELA #### [facility] [address] [place] [address] Dr. Joselyn Coffey METAMYELOCYTE # Normal [facility] Comment on above: Performed By: #### Sammy PROCTOR #### [facility] [address] [place] [address] Dr. Joselyn Coffey METAMYELOCYTE % Normal [facility] Comment on above: Performed By: #### Sammy PROCTOR #### [facility] [address] [place] [address] Dr. Joselyn Coffey MONOM# 0.46 103/ul Normal 0.30-0.80 [facility] Comment on above: Performed By: #### Sammy PROCTOR #### [facility] [address] [place] [address] Dr. Joselyn Coffey MONOM% 8.0 % Normal 1.7-12.0 [facility] Comment on above: Performed By: #### Sammy PROCTOR #### [facility] [address] [place] [address] Dr. Joselyn Coffey MPV 11.6 fL Normal 9.5-13.5 [facility] Comment on above: Performed By: #### C ESTHELA #### [facility] [address] [place] [address] Dr. Joselyn Coffey MYELOCYTE # Normal [facility] Comment on above: Performed By: #### C ESTHELA #### [facility] [address] [address] [address] Joselyn Coffey MYELOCYTE % Normal [facility] Comment on above: Performed By: #### C BCMAN #### [facility] [address] [address] [address] Joselyn Coffey NRBC Normal [facility] Comment on above: Performed By: #### C BCDEV #### [facility] [address] [address] [address] Joselyn Coffey PLT 161 103/ul Normal 150-450 [facility] Comment on above: Performed By: #### C BCMAN #### [facility] [address] [address] [address] Joselyn Coffey RBC 2.93 106/ul Critically low 4.70-6.10 [facility] Comment on above: Performed By: #### C BCDEV #### [facility] [address] [place] [address] Dr. Joselyn Coffey RDW 18.8 % Critically high 11.0-15.0 [facility] Comment on above: Performed By: #### C BCMAN #### [facility] [address] [place] [address] Dr. Joselyn Cfofey SEG # 5.16 103/ul Normal 1.40-6.50 [facility] Comment on above: Performed By: #### C BCMAN #### [facility] [address] [place] [address] Dr. Joselyn Coffey SEG % 89.0 % Critically high 43.0-75.0 [facility] Comment on above: Performed By: #### C BCMAN #### [facility] [address] [place] [address] Dr. Joselyn Coffey WBC 5.8 103/ul Normal 4.0-11.0 [facility] Comment on above: Performed By: #### C BCMAN #### [facility] [address] [place] [address] Dr. Joselyn Coffey PROF CHEM 8 (BAS METB)on Anion gap [Moles/Vol] 8.3 mmol/L Normal [facility] Comment on above: Performed By: #### B MP #### [facility] [address] [address] [address] Joselyn Coffey Calcium [Mass/Vol] 8.3 mg/dL Critically low 8.5-10.1 [facility] Comment on above: Performed By: #### B MP #### [facility] [address] [address] [address] Joselyn Coffey Chloride [Moles/Vol] 101 mmol/L Normal 98-107 [facility] Comment on above: Performed By: #### B MP #### [facility] [address] [address] [address] Joselyn Coffey CO2 [Moles/Vol] 27.7 mmol/L Normal 21.0-32.0 [facility] Comment on above: Performed By: #### B MP #### [facility] [address] [place] [address] Dr. Joselyn Coffey Creatinine [Mass/Vol] 0.60 mg/dL Critically low 0.70-1.30 [facility] Comment on above: Performed By: #### B MP #### [facility] [address] [address] [address] Joselyn Coffey EGFR-AF TURKS AND CAICOS ISLANDER >60 Normal >=60 [facility] Comment on above: Performed By: #### B MP #### [facility] [address] [address] [address] Joselyn Coffey EGFR-NON AF TURKS AND CAICOS ISLANDER >60 Normal >=60 [facility] Comment on above: Performed By: #### B MP #### [facility] [address] [address] [address] Joselyn Coffey Glucose [Mass/Vol] 188 mg/dL Critically high 74-106 [facility] Comment on above: Performed By: #### B MP #### [facility] [address] [address] [address] Joselyn Coffey Potassium [Moles/Vol] 4.0 mmol/L Normal 3.5-5.1 [facility] Comment on above: Performed By: #### B MP #### [facility] [address] [place] [address] Dr. Joselyn Coffey Sodium [Moles/Vol] 133 mmol/L Critically low 136-145 [facility] Comment on above: Performed By: #### B MP #### [facility] [address] [place] [address] Dr. Joselyn Coffey Urea nitrogen [Mass/Vol] 13.0 mg/dL Normal 7.0-18.0 [facility] Comment on above: Performed By: #### B MP #### [facility] [address] [place] [address] Dr. Joselyn Coffey Urea nitrogen/Creatinine [Mass ratio] 21.7 mg/mg Normal [facility] Comment on above: Performed By: #### B MP #### [facility] [address] [place] [address] Dr. Joselyn Coffey PROTIMEon 02-09-2023 INR Coag (PPP) [Relative time] 1.12 {INR} Normal [facility] Comment on above: Performed By: #### C ESTHELA #### [facility] [address] [place] [address] Dr. Joselyn Coffey INR GUIDELINES SEE BELOW Normal [facility] Comment on above: Result Comment: SNOW RED INR: 2.0 - 3.0 CONDITIONS NOT LISTED BELOW 2.5 - 3.5 FOR PROSTHETIC HEART VALVE REPLACEMENT 2.5 - 3.5 RECURRENT THROMBOSIS Performed By: #### C ESTHELA #### [facility] [address] [place] [address] Dr. Joselyn Coffey PT Coag (PPP) [Time] 11.8 s Critically high 9.0-11.6 [facility] Comment on above: Performed By: #### C ESTHELA #### [facility] [address] [place] [address] Dr. Joselyn Coffey PTTon 02-09-2023 aPTT Coag (Bld) [Time] 37.3 s Critically high 22.3-36. 2 [facility] Comment on above: Performed By: #### C ESTHELA #### [facility] [address] [place] [address] Dr. Joselyn Coffey US ARTERY LEG RTon [...] by: MARIO CULLEN Date: 2023-02-09 14:[address] [facility] XR CHEST 1 Von 02-09-2023 XR CHEST 1 V EXAM: XR CHEST 1 V HISTORY: Asthenia COMPARISON: 04/04/2021 TECHNIQUE: Single view of the chest FINDINGS: Heart size normal. No focal consolidation, pleural effusion, pulmonary congestion or pneumothorax. Sternotomy wires. Right-sided central line terminating in the lower SVC region. IMPRESSION: No acute findings. Electronically authenticated by: DONALD LIMA Date: 2023-02-09 14:[address] [facility] CBC AUTO DIFFon 01-29-2023 BASO # 0.0 103/ul Normal 0.0-0.1 [facility] Comment on above: Performed By: #### P TT, PT #### [facility] [address] [place] [address] Dr. Joselyn Coffey Basophils/100 WBC (Bld) 0.2 % Normal 0.2-2.0 [facility] Comment on above: Performed By: #### P TT, PT #### [facility] [address] [place] [address] Dr. Joselyn Coffey EO # 0.0 103/ul Normal 0.0-0.7 [facility] Comment on above: Performed By: #### P TT, PT #### [facility] [address] [place] [address] Dr. Joselyn Coffey Eosinophils/100 WBC (Bld) 0.0 % Critically low 0.9-7.0 [facility] Comment on above: Performed By: #### P TT, PT #### [facility] [address] [place] [address] Dr. Joselyn Coffey Erythrocyte distribution width (RBC) [Ratio] 17.7 % Critically high 11.0-15.0 [facility] Comment on above: Performed By: #### P TT, PT #### [facility] [address] [place] [address] Dr. Joselyn Coffey Hematocrit (Bld) [Volume fraction] 17.5 % Critically low 42.0-54.0 [facility] Comment on above: Performed By: #### P TT, PT #### [facility] [address] [place] [address] Dr. Joselyn Coffey Hemoglobin (Bld) [Mass/Vol] 5.1 g/dL Critically low 14.0-18.0 [facility] Comment on above: Performed By: #### P TT, PT #### [facility] [address] [place] [address] Dr. Joselyn Coffey IG # 0.02 10e3/ul Normal 0.00-0.03 [facility] Comment on above: Performed By: #### P TT, PT #### [facility] [address] [place] [address] Dr. Joselyn Coffey IG % 0.4 % Normal 0.0-0.5 [facility] Comment on above: Performed By: #### P TT, PT #### [facility] [address] [place] [address] Dr. Joselyn Coffey LYMPH # 0.3 103/ul Critically low 1.2-3.8 [facility] Comment on above: Performed By: #### P TT, PT #### [facility] [address] [place] [address] Dr. Joselyn Coffey Lymphocytes/100 WBC (Bld) 5.8 % Critically low 20.5-60.0 [facility] Comment on above: Performed By: #### P TT, PT #### [facility] [address] [place] [address] Dr. Joselyn Coffey MANUAL DIFF REQ NO Normal [facility] Comment on above: Performed By: #### P TT, PT #### [facility] [address] [place] [address] Dr. Joselyn Coffey MCH (RBC) [Entitic mass] 25.5 pg Critically low 25.9-34.0 [facility] Comment on above: Performed By: #### P TT, PT #### [facility] [address] [place] [address] Dr. Joselyn Coffey MCHC (RBC) [Mass/Vol] 29.1 g/dL Critically low 29.9-35.2 [facility] Comment on above: Performed By: #### P TT, PT #### [facility] [address] [place] [address] Dr. Joselyn Coffey MCV (RBC) [Entitic vol] 87.5 fL Normal 80.0-94.0 [facility] Comment on above: Performed By: #### P TT, PT #### [facility] [address] [place] [address] Dr. Joselyn Coffey MONO # 0.5 103/ul Normal 0.3-0.8 [facility] Comment on above: Performed By: #### P TT, PT #### [facility] [address] [place] [address] Dr. Joselyn Coffey Monocytes/100 WBC (Bld) 10.4 % Normal 1.7-12.0 [facility] Comment on above: Performed By: #### P TT, PT #### [facility] [address] [place] [address] Dr. Joselyn Coffey NEUT # 4.3 103/ul Normal 1.4-6.5 [facility] Comment on above: Performed By: #### P TT, PT #### [facility] [address] [place] [address] Dr. Joselyn Coffey Neutrophils/100 WBC (Bld) 83.2 % Critically high 43.0-75.0 [facility] Comment on above: Performed By: #### P TT, PT #### [facility] [address] [place] [address] Dr. Joselyn Coffey Platelet mean volume (Bld) [Entitic vol] 12.4 fL Normal 9.5-13.5 [facility] Comment on above: Performed By: #### P TT, PT #### [facility] [address] [address] [address] Joselyn Coffey PLT 113 103/ul Critically low 150-450 [facility] Comment on above: Performed By: #### P TT, PT #### [facility] [address] [address] [address] Joselyn Coffey RBC 2.00 106/ul Critically low 4.70-6.10 [facility] Comment on above: Performed By: #### P TT, PT #### [facility] [address] [address] [address] Joselyn Coffey WBC 5.2 103/ul Normal 4.0-11.0 [facility] Comment on above: Performed By: #### P TT, PT #### [facility] [address] [address] [address] Joselyn Coffey CTA ABD MARY JANE [...] by: LUZ NIETO Date: 2023-01-29 17:[address] [facility] PRBC LEUKOREDUCEDon 01-30-20 23 ABO and Rh group Nom (Bld) Cross Match Result Compatible Unit Blood Type O Pos Unit Number [id number] Status Information Issued Product ID Red Blood Cells Product Code [id number] Issue Date/Time [id number] Cross Match Result Compatible Unit Blood Type O Pos Unit Number [id number] Status Information Issued Product ID Red Blood Cells Product Code [id number] Issue Date/Time [id number] Normal [facility] Comment on above: Performed By: #### C DEV #### [facility] [address] [place] [address] Dr. Joselyn Coffey PROF CHEM 8 (BAS METB)on Anion gap [Moles/Vol] 12.3 mmol/L Normal [facility] Comment on above: Performed By: #### B MP #### [facility] [address] [place] [address] Dr. Joselyn Coffey Calcium [Mass/Vol] 7.3 mg/dL Critically low 8.5-10.1 [facility] Comment on above: Performed By: #### B MP #### [facility] [address] [place] [address] Dr. Joselyn Coffey Chloride [Moles/Vol] 100 mmol/L Normal 98-107 [facility] Comment on above: Performed By: #### B MP #### [facility] [address] [place] [address] Dr. Joselyn Coffey CO2 [Moles/Vol] 23.7 mmol/L Normal 21.0-32.0 [facility] Comment on above: Performed By: #### B MP #### [facility] [address] [place] [address] Dr. Joselyn Coffey Creatinine [Mass/Vol] 0.82 mg/dL Normal 0.70-1.30 [facility] Comment on above: Performed By: #### B MP #### [facility] [address] [place] [address] Dr. Joselyn Coffey EGFR-AF TURKS AND CAICOS ISLANDER >60 Normal >=60 [facility] Comment on above: Performed By: #### B MP #### [facility] [address] [place] [address] Dr. Joselyn Coffey EGFR-NON AF TURKS AND CAICOS ISLANDER >60 Normal >=60 [facility] Comment on above: Performed By: #### B MP #### [facility] [address] [place] [address] Dr. Joselyn Coffey Glucose [Mass/Vol] 234 mg/dL Critically high 74-106 [facility] Comment on above: Performed By: #### B MP #### [facility] [address] [place] [address] Dr. Joselyn Coffey Potassium [Moles/Vol] 4.0 mmol/L Normal 3.5-5.1 [facility] Comment on above: Performed By: #### B MP #### [facility] [address] [place] [address] Dr. Joselyn Coffey Sodium [Moles/Vol] 132 mmol/L Critically low 136-145 [facility] Comment on above: Performed By: #### B MP #### [facility] [address] [place] [address] Dr. Joselyn Coffey Urea nitrogen [Mass/Vol] 14.0 mg/dL Normal 7.0-18.0 [facility] Comment on above: Performed By: #### B MP #### [facility] [address] [place] [address] Dr. Joselyn Coffey Urea nitrogen/Creatinine [Mass ratio] 17.1 mg/mg Normal [facility] Comment on above: Performed By: #### B MP #### [facility] [address] [place] [address] Dr. Joselyn Coffey PROTIMEon 01-29-2023 INR Coag (PPP) [Relative time] 1.32 {INR} Normal [facility] Comment on above: Performed By: #### P TT, PT #### [facility] [address] [place] [address] Dr. Joselyn Coffey INR GUIDELINES SEE BELOW Normal [facility] Comment on above: Result Comment: SNOW RED INR: 2.0 - 3.0 CONDITIONS NOT LISTED BELOW 2.5 - 3.5 FOR PROSTHETIC HEART VALVE REPLACEMENT 2.5 - 3.5 RECURRENT THROMBOSIS Performed By: #### P TT, PT #### [facility] [address] [place] [address] Dr. Joselyn Coffey PT Coag (PPP) [Time] 13.8 s Critically high 9.0-11.6 [facility] Comment on above: Performed By: #### P TT, PT #### [facility] [address] [place] [address] Dr. Joselyn Coffey PTTon 01-29-2023 aPTT Coag (Bld) [Time] 34.5 s Normal 22.3-36.2 [facility] Comment on above: Performed By: #### P TT, PT #### [facility] [address] [place] [address] Dr. Joselyn Coffey TYPE AND SCREENon 01-29-2023 TYPE AND SCREEN Negative Normal [facility] Comment on above: Performed By: #### C BCMAN #### [facility] [address] [place] [address] Dr. Joselyn Coffey CARDIAC MARCO A ADMITon 023 CK [Catalytic activity/Vol] 109 U/L Normal 39-308 [facility] Comment on above: Performed By: #### C CARLYNM, CMP #### [facility] [address] [place] [address] Dr. Joselyn Coffey CK.MB [Mass/Vol] 0.94 ng/mL Normal <=3.60 [facility] Comment on above: Performed By: #### C ROSALINA, CMP #### [facility] [address] [place] [address] Dr. Joselyn Coffey HSTROP 8.1 pg/mL Normal 4.0-76.1 [facility] Comment on above: Result Comment: CUT- OFF POINTS HAVE BEEN ESTABLISHED BASED ON THE FOURTH UNIVERSAL DEFINITIONS OF MYOCARDIAL INFARCTION. THE UPPER REFERENCE LIMIT (URL) OF TROPONIN, DEFINED THE 99TH PERCENTILE OF cTnI DISTRIBUTION IN A REFERENCE POPULATION, HAS BEEN CONFIRMED THE DECISION THRESHOLD FOR [place] DIAGNOSIS. Performed By: #### C CARLYNM, CMP #### [facility] [address] [place] [address] Dr. Joselyn Coffey CHULA 144 ng/mL Critically high 16-96 [facility] Comment on above: Performed By: #### C CARLYNM, CMP #### [facility] [address] [place] [address] Dr. Joselyn Coffey CBC AUTO DIFFon 11-13-2022 BASO # 0.0 103/ul Normal 0.0-0.1 [facility] Comment on above: Performed By: #### C BCMAN #### [facility] [address] [place] [address] Dr. Joselyn Coffey Basophils/100 WBC (Bld) 0.3 % Normal 0.2-2.0 [facility] Comment on above: Performed By: #### C ESTHELA #### [facility] [address] [place] [address] Dr. Joselyn Coffey EO # 0.0 103/ul Normal 0.0-0.7 [facility] Comment on above: Performed By: #### C ESTHELA #### [facility] [address] [place] [address] Dr. Joselyn Coffey Eosinophils/100 WBC (Bld) 0.3 % Critically low 0.9-7.0 [facility] Comment on above: Performed By: #### C ESTHELA #### [facility] [address] [place] [address] Dr. Joselyn Coffey Erythrocyte distribution width (RBC) [Ratio] 18.7 % Critically high 11.0-15.0 [facility] Comment on above: Performed By: #### C ESTHELA #### [facility] [address] [place] [address] Dr. Joselyn Coffey Hematocrit (Bld) [Volume fraction] 25.4 % Critically low 42.0-54.0 [facility] Comment on above: Performed By: #### C ESTHELA #### [facility] [address] [place] [address] Dr. Joselyn Coffey Hemoglobin (Bld) [Mass/Vol] 8.2 g/dL Critically low 14.0-18.0 [facility] Comment on above: Performed By: #### C ESTHELA #### [facility] [address] [place] [address] Dr. Joselyn Coffey IG # 0.04 10e3/ul Critically high 0.00-0.03 [facility] Comment on above: Performed By: #### C ESTHELA #### [facility] [address] [place] [address] Dr. Joselyn Coffey IG % 0.7 % Critically high 0.0-0.5 [facility] Comment on above: Performed By: #### C ESTHELA #### [facility] [address] [place] [address] Dr. Joselyn Coffey LYMPH # 0.4 103/ul Critically low 1.2-3.8 [facility] Comment on above: Performed By: #### C ESTHELA #### [facility] [address] [place] [address] Dr. Joselyn Coffey Lymphocytes/100 WBC (Bld) 7.2 % Critically low 20.5-60.0 [facility] Comment on above: Performed By: #### C ESTHELA #### [facility] [address] [place] [address] Dr. Joselyn Coffey MANUAL DIFF REQ NO Normal [facility] Comment on above: Performed By: #### C ESTHELA #### [facility] [address] [place] [address] Dr. Joselyn Coffey MCH (RBC) [Entitic mass] 32.8 pg Normal 25.9-34.0 [facility] Comment on above: Performed By: #### C ESTHELA #### [facility] [address] [place] [address] Dr. Joselyn Coffey MCHC (RBC) [Mass/Vol] 32.3 g/dL Normal 29.9-35.2 [facility] Comment on above: Performed By: #### C ESTHELA #### [facility] [address] [place] [address] Dr. Joselyn Coffey MCV (RBC) [Entitic vol] 101.6 fL Critically high 80.0-[address] [facility] Comment on above: Performed By: #### C ESTHELA #### [facility] [address] [place] [address] Dr. Joselyn Coffey MONO # 0.7 103/ul Normal 0.3-0.8 [facility] Comment on above: Performed By: #### C ESTHELA #### [facility] [address] [place] [address] Dr. Joselyn Coffey Monocytes/100 WBC (Bld) 11.9 % Normal 1.7-12.0 [facility] Comment on above: Performed By: #### C ESTHELA #### [facility] [address] [place] [address] Dr. Joselyn Coffey NEUT # 4.7 103/ul Normal 1.4-6.5 [facility] Comment on above: Performed By: #### Sammy PROCTOR #### [facility] [address] [place] [address] Dr. Joselyn Coffey Neutrophils/100 WBC (Bld) 79.6 % Critically high 43.0-75.0 [facility] Comment on above: Performed By: #### Sammy PROCTOR #### [facility] [address] [place] [address] Dr. Joselyn Coffey Platelet mean volume (Bld) [Entitic vol] 10.8 fL Normal 9.5-13.5 [facility] Comment on above: Performed By: #### Sammy PROCTOR #### [facility] [address] [place] [address] Dr. Joselyn Coffey PLT 108 103/ul Critically low 150-450 [facility] Comment on above: Performed By: #### Sammy PROCTOR #### [facility] [address] [place] [address] Dr. Joselyn Coffey RBC 2.50 106/ul Critically low 4.70-6.10 [facility] Comment on above: Performed By: #### Sammy PROCTOR #### [facility] [address] [place] [address] Dr. Joselyn Coffey WBC 6.0 103/ul Normal 4.0-11.0 [facility] Comment on above: Performed By: #### Sammy PROCTOR #### [facility] [address] [place] [address] Dr. Joselyn Coffey Covid-19 PCR ([facility])on SARS-CoV-2 (COVID-19) RNA HAIM+probe Ql (Unsp spec) Not detected Normal NOT DETECTED [facility] Comment on above: Result Comment: When diagnostic [...] for this test is supported by the [employer] Operator of Health and Human Service's declaration [...] Performed By: #### P TT, PT #### [facility] [address] [place] [address] Dr. Joselyn Coffey ER URINE PROFILEon 3 Bilirubin Ql (U) Negative Normal NEGATIVE [facility] Comment on above: Performed By: #### P TT, PT #### [facility] [address] [place] [address] Dr. Joselyn Coffey Clarity (U) CLEAR Normal CLEAR [facility] Comment on above: Performed By: #### P TT, PT #### [facility] [address] [place] [address] Dr. Joselyn Coffey Color (U) ORANGE Abnormal YELLOW [facility] Comment on above: Performed By: #### P TT, PT #### [facility] [address] [place] [address] Dr. Joselyn RIVERA A micrscopic examina tion will be performed if indicated. Normal [facility] Comment on above: Performed By: #### P TT, PT #### [facility] [address] [place] [address] Dr. Joselyn Coffey Glucose Ql (U) 100 mg/dl Abnormal NEGATIVE [facility] Comment on above: Performed By: #### P TT, PT #### [facility] [address] [place] [address] Dr. Joselyn Cofefy Hemoglobin Ql (U) Negative Normal NEGATIVE [facility] Comment on above: Performed By: #### P TT, PT #### [facility] [address] [place] [address] Dr. Joselyn Coffey Ketones Ql (U) Negative Normal NEGATIVE [facility] Comment on above: Performed By: #### P TT, PT #### [facility] [address] [place] [address] Dr. Joselyn Coffey LEUKOCYTES Negative Normal NEGATIVE [facility] Comment on above: Performed By: #### P TT, PT #### [facility] [address] [place] [address] Dr. Joselyn Coffey Nitrite Ql (U) Negative Normal NEGATIVE [facility] Comment on above: Performed By: #### P TT, PT #### [facility] [address] [place] [address] Dr. Joselyn Coffey pH (U) 6.0 [pH] Normal 5-9 [facility] Comment on above: Performed By: #### P TT, PT #### [facility] [address] [place] [address] Dr. Joselyn Coffey SPEC GRAVITY 1.015 Normal 1.005-<=1.[address] [facility] Comment on above: Performed By: #### P TT, PT #### [facility] [address] [place] [address] Dr. Joselyn Coffey UA PROTEIN TRACE Normal NEGATIVE/ TRACE [facility] Comment on above: Performed By: #### P TT, PT #### [facility] [address] [place] [address] Dr. Joselyn Coffey UR MICRO IND NOT INDICATED Normal [facility] Comment on above: Performed By: #### P TT, PT #### [facility] [address] [place] [address] Dr. Joselyn Coffey Urobilinogen Qn (U) 8 {Mercedes'U}/dL Abnormal 0.2 - 1.0 [facility] Comment on above: Performed By: #### P TT, PT #### [facility] [address] [place] [address] Dr. Joselyn Coffey PROF 14(COMP METB)on 023 Albumin [Mass/Vol] 2.6 g/dL Critically low 3.4-5.0 Th [facility] Comment on above: Performed By: #### C MADM, CMP #### [facility] [address] [address] [address] Joselyn Coffey Albumin/Globulin [Mass ratio] 0.7 {ratio} Normal [facility] Comment on above: Performed By: #### C CARLYNM, CMP #### [facility] [address] [address] [address] Joselyn Coffey ALP [Catalytic activity/Vol] 115 U/L Normal 46-116 [facility] Comment on above: Performed By: #### C CARLYNM, CMP #### [facility] [address] [address] [address] Joselyn Coffey ALT [Catalytic activity/Vol] 44 U/L Normal 16-63 [facility] Comment on above: Performed By: #### C ROSALINA, CMP #### [facility] [address] [address] [address] Joselyn Coffey Anion gap [Moles/Vol] 9.6 mmol/L Normal [facility] Comment on above: Performed By: #### C ROSALINA, CMP #### [facility] [address] [address] [address] Joselyn Coffey AST [Catalytic activity/Vol] 52 U/L Critically high 15-37 [facility] Comment on above: Performed By: #### C ROSALINA, CMP #### [facility] [address] [address] [address] Joselyn Coffey Bilirubin [Mass/Vol] 2.6 mg/dL Critically high 0.2-1.0 [facility] Comment on above: Performed By: #### C ROSALINA, CMP #### [facility] [address] [address] [address] Joselyn Coffey Calcium [Mass/Vol] 8.3 mg/dL Critically low 8.5-10.1 Th [facility] Comment on above: Performed By: #### C ROSALINA, CMP #### [facility] [address] [address] [address] Joselyn Coffey Chloride [Moles/Vol] 99 mmol/L Normal 98-107 [facility] Comment on above: Performed By: #### C ROSALINA, CMP #### [facility] [address] [address] [address] Joselyn Coffey CO2 [Moles/Vol] 26.6 mmol/L Normal 21.0-32.0 [facility] Comment on above: Performed By: #### C MADM, CMP #### [facility] [address] [address] [address] Joselyn Coffey Creatinine [Mass/Vol] 0.77 mg/dL Normal 0.70-1.30 [facility] Comment on above: Performed By: #### C MADM, CMP #### [facility] [address] [address] [address] Joselyn Coffey EGFR-AF TURKS AND CAICOS ISLANDER >60 Normal >=60 [facility] Comment on above: Performed By: #### C MADM, CMP #### [facility] [address] [place] [address] Dr. Joselyn Coffey EGFR-NON AF TURKS AND CAICOS ISLANDER >60 Normal >=60 [facility] Comment on above: Performed By: #### C MADM, CMP #### [facility] [address] [address] [address] Joselyn Coffey Globulin (S) [Mass/Vol] 3.5 g/dL Normal [facility] Comment on above: Performed By: #### C MADM, CMP #### [facility] [address] [address] [address] Joselyn Coffey Glucose [Mass/Vol] 123 mg/dL Critically high 74-106 [facility] Comment on above: Performed By: #### C MADM, CMP #### [facility] [address] [address] [address] Joselyn Coffey Potassium [Moles/Vol] 4.2 mmol/L Normal 3.5-5.1 [facility] Comment on above: Performed By: #### C MADM, CMP #### [facility] [address] [address] [address] Joselyn Coffey Protein [Mass/Vol] 6.1 g/dL Critically low 6.4-8.2 Th [facility] Comment on above: Performed By: #### C MADM, CMP #### [facility] [address] [address] [address] Joselyn Coffey Sodium [Moles/Vol] 131 mmol/L Critically low 136-145 Th [facility] Comment on above: Performed By: #### C CARLYNM, CMP #### [facility] [address] [place] [address] Dr. Joselyn Coffey Urea nitrogen [Mass/Vol] 11.0 mg/dL Normal 7.0-18.0 [facility] Comment on above: Performed By: #### C ROSALINA, CMP #### [facility] [address] [place] [address] Dr. Joselyn Coffey Urea nitrogen/Creatinine [Mass ratio] 14.3 mg/mg Normal [facility] Comment on above: Performed By: #### C ROSALINA, CMP #### [facility] [address] [place] [address] Dr. Joselyn Coffey TYPE AND SCREENon 11-13-2022 TYPE AND SCREEN Negative Normal [facility] Comment on above: Performed By: #### C ESTHELA #### [facility] [address] [place] [address] Dr. Joselyn Coffey CBC W MANUAL DIFFon 11-01-19 23 ATYPICAL LYMPH # Normal [facility] Comment on above: Performed By: #### C ESTHELA #### [facility] [address] [place] [address] Dr. Joselyn Coffey ATYPICAL LYMPH % Normal [facility] Comment on above: Performed By: #### C ESTHELA #### [facility] [address] [place] [address] Dr. Joselyn Coffey BAND # Normal 0.0-0.3 [facility] Comment on above: Performed By: #### C ESTHELA #### [facility] [address] [place] [address] Dr. Joselyn Coffey BAND % Normal 0-5 [facility] Comment on above: Performed By: #### C ESTHELA #### [facility] [address] [place] [address] Dr. Joselyn Coffey BASOM # 0.00 103/ul Normal 0.00-0.10 [facility] Comment on above: Performed By: #### C ESTHELA #### [facility] [address] [place] [address] Dr. Joselyn Coffey BASOM % 0.0 % Critically low 0.2-2.0 [facility] Comment on above: Performed By: #### C ETSHELA #### [facility] [address] [place] [address] Dr. Joselyn Coffey BLAST # Normal [facility] Comment on above: Performed By: #### C ESTHELA #### [facility] [address] [place] [address] Dr. Joselyn Coffey BLAST % Normal [facility] Comment on above: Performed By: #### C ESTHELA #### [facility] [address] [place] [address] Dr. Joselyn Coffey CORRECTED WBC Normal 4.0-11.0 [facility] Comment on above: Performed By: #### C ESTHELA #### [facility] [address] [place] [address] Dr. Joselyn Coffey EOS # 0.00 103/ul Normal 0.00-0.70 [facility] Comment on above: Performed By: #### C ESTHELA #### [facility] [address] [place] [address] Dr. Joselyn Coffey EOS% 0.0 % Critically low 0.9-7.0 [facility] Comment on above: Performed By: #### C ESTHELA #### [facility] [address] [place] [address] Dr. Joselyn Coffey HCT 36.5 % Critically low 42.0-54.0 [facility] Comment on above: Performed By: #### C ESTHELA #### [facility] [address] [place] [address] Dr. Joselyn Coffey HGB 13.2 g/dl Critically low 14.0-18.0 [facility] Comment on above: Performed By: #### C ESTHELA #### [facility] [address] [place] [address] Dr. Joselyn Coffey LYMPHM # 0.35 103/ul Critically low 1.20-3.80 [facility] Comment on above: Performed By: #### C ESTHELA #### [facility] [address] [place] [address] Dr. Joselyn Coffey LYMPHM% 7.0 % Critically low 20.5-60.0 [facility] Comment on above: Performed By: #### C ESTHELA #### [facility] [address] [place] [address] Dr. Joselyn Coffey MCH 31.9 pg Normal 25.9-34.0 [facility] Comment on above: Performed By: #### C ESTHELA #### [facility] [address] [place] [address] Dr. Joselyn Coffey MCHC 36.2 g/dl Critically high 29.9-35.2 [facility] Comment on above: Performed By: #### C ESTHELA #### [facility] [address] [place] [address] Dr. Joselyn Coffey MCV 88.2 fL Normal 80.0-94.0 [facility] Comment on above: Performed By: #### C ESTHELA #### [facility] [address] [place] [address] Dr. Joselyn Coffey METAMYELOCYTE # Normal [facility] Comment on above: Performed By: #### C ESTHELA #### [facility] [address] [place] [address] Dr. Joselyn Coffey METAMYELOCYTE % Normal [facility] Comment on above: Performed By: #### C ESTHELA #### [facility] [address] [place] [address] Dr. Joselyn Coffey MONOM# 0.35 103/ul Normal 0.30-0.80 [facility] Comment on above: Performed By: #### C ESTHELA #### [facility] [address] [place] [address] Dr. Joselyn Coffey MONOM% 7.0 % Normal 1.7-12.0 [facility] Comment on above: Performed By: #### C ESTHELA #### [facility] [address] [place] [address] Dr. Joselyn Coffey MPV 10.7 fL Normal 9.5-13.5 [facility] Comment on above: Performed By: #### C ESTHELA #### [facility] [address] [place] [address] Dr. Joselyn Coffey MYELOCYTE # Normal [facility] Comment on above: Performed By: #### C ESTHELA #### [facility] [address] [place] [address] Dr. Joselyn Coffey MYELOCYTE % Normal [facility] Comment on above: Performed By: #### C ESTHELA #### [facility] [address] [place] [address] Dr. Joselyn Coffey NRBC Normal [facility] Comment on above: Performed By: #### C ESTHELA #### [facility] [address] [place] [address] Dr. Joselyn Coffey PLT 79 103/ul Critically low 150-450 [facility] Comment on above: Performed By: #### C ESTHELA #### [facility] [address] [place] [address] Dr. Joselyn Coffey RBC 4.14 106/ul Critically low 4.70-6.10 [facility] Comment on above: Performed By: #### C ESTHELA #### [facility] [address] [place] [address] Dr. Joselyn Coffey RDW 13.2 % Normal 11.0-15.0 [facility] Comment on above: Performed By: #### C ESTHELA #### [facility] [address] [place] [address] Dr. Joselyn Coffey SEG # 4.30 103/ul Normal 1.40-6.50 [facility] Comment on above: Performed By: #### C ESTHELA #### [facility] [address] [place] [address] Dr. Joselyn Coffey SEG % 86.0 % Critically high 43.0-75.0 [facility] Comment on above: Performed By: #### C ESTHELA #### [facility] [address] [place] [address] Dr. Joselyn Coffey WBC 5.0 103/ul Normal 4.0-11.0 [facility] Comment on above: Performed By: #### C ESTHELA #### [facility] [address] [place] [address] Dr. Joselyn Coffey MRSA NARES #1on 11-01-2022 MRSA NARES #1 Culture Observations : NO GROWTH OF MRSA AT [address] [facility] Comment on above: Performed By: #### C ESTHELA #### [facility] [address] [place] [address] Dr. Joselyn Coffey PROF CHEM 8 (BAS METB)on Anion gap [Moles/Vol] 12.7 mmol/L Normal [facility] Comment on above: Performed By: #### P TT, PT #### [facility] [address] [place] [address] Dr. Joselyn Coffey Calcium [Mass/Vol] 8.9 mg/dL Normal 8.5-10.1 [facility] Comment on above: Performed By: #### P TT, PT #### [facility] [address] [place] [address] Dr. Joselyn Coffey Chloride [Moles/Vol] 100 mmol/L Normal 98-107 [facility] Comment on above: Performed By: #### P TT, PT #### [facility] [address] [place] [address] Dr. Joselyn Coffey CO2 [Moles/Vol] 29.0 mmol/L Normal 21.0-32.0 [facility] Comment on above: Performed By: #### P TT, PT #### [facility] [address] [place] [address] Dr. Joselyn Coffey Creatinine [Mass/Vol] 1.06 mg/dL Normal 0.70-1.30 [facility] Comment on above: Performed By: #### P TT, PT #### [facility] [address] [place] [address] Dr. Joselyn Coffey EGFR-AF TURKS AND CAICOS ISLANDER >60 Normal >=60 [facility] Comment on above: Performed By: #### P TT, PT #### [facility] [address] [address] [address] Joselyn Coffey EGFR-NON AF TURKS AND CAICOS ISLANDER >60 Normal >=60 [facility] Comment on above: Performed By: #### P TT, PT #### [facility] [address] [address] [address] Joselyn Coffey Glucose [Mass/Vol] 278 mg/dL Critically high 74-106 T [facility] Comment on above: Performed By: #### P TT, PT #### [facility] [address] [address] [address] Joselyn Coffey Potassium [Moles/Vol] 4.7 mmol/L Normal 3.5-5.1 [facility] Comment on above: Performed By: #### P TT, PT #### [facility] [address] [address] [address] Joselyn Coffey Sodium [Moles/Vol] 137 mmol/L Normal 136-145 [facility] Comment on above: Performed By: #### P TT, PT #### [facility] [address] [address] [address] Joselyn Coffey Urea nitrogen [Mass/Vol] 17.0 mg/dL Normal 7.0-18.0 [facility] Comment on above: Performed By: #### P TT, PT #### [facility] [address] [address] [address] Joselyn Coffey Urea nitrogen/Creatinine [Mass ratio] 16.0 mg/mg Normal [facility] Comment on above: Performed By: #### P TT, PT #### [facility] [address] [address] [address] Joselyn Coffey PROTIMEon 11-01-2022 INR Coag (PPP) [Relative time] 1.10 {INR} Normal [facility] Comment on above: Performed By: #### P TT, PT #### [facility] [address] [place] [address] Dr. Joselyn Coffey INR GUIDELINES SEE BELOW Normal [facility] Comment on above: Result Comment: SNOW RED INR: 2.0 - 3.0 CONDITIONS NOT LISTED BELOW 2.5 - 3.5 FOR PROSTHETIC HEART VALVE REPLACEMENT 2.5 - 3.5 RECURRENT THROMBOSIS Performed By: #### P TT, PT #### [facility] [address] [place] [address] Dr. Joselyn Coffey PT Coag (PPP) [Time] 11.6 s Normal 9.0-11.6 [facility] Comment on above: Performed By: #### P TT, PT #### [facility] [address] [place] [address] Dr. Joselyn Coffey PTTon 11-01-2022 aPTT Coag (Bld) [Time] 29.8 s Normal 22.3-36.2 [facility] Comment on above: Performed By: #### P TT, PT #### [facility] [address] [place] [address] Dr. Joselyn Coffey CTA ABD MARY JANE [...] ANDREA ARTEAGA Date: 2022-10-20 15:34 Normal [facility] BONE MARROW SCREENon 022 BONE MARROW SCR SEE BONE MARROW SPEC IAL REPORT FORM Normal [facility] Comment on above: Performed By: #### 5 [id number] #### [facility] [address] [facility] [place] [address], [facility] CBC W/DIFFon 11-09-2021 ABS IMM GRANS 0.0 10*3/uL Normal 0.0-0.2 [facility] Comment on above: Performed By: #### 5 [id number], [id number] #### [facility] [address] [place] [address], [facility] ABS NEUTROPHILS 2.4 10*3/uL Normal 1.6-7.6 [facility] Comment on above: Performed By: #### 5 102, [id number] #### [facility] [address] [place] [address], [facility] ANISO Moderate Normal [facility] Comment on above: Performed By: #### 5 102, [id number] #### [facility] [address] [place] [address], [facility] Basophils (Bld) [#/Vol] 0.0 10*3/uL Normal 0.0-0.2 [facility] Comment on above: Performed By: #### 5 102, [id number] #### [facility] [address] [place] [address], [facility] Basophils/100 WBC (Bld) 0.6 % Normal 0.0-1.0 T [facility] Comment on above: Performed By: #### 5 102, [id number] #### [facility] [address] [place] [address], [facility] ELLIPTOCYTES Slight Normal [facility] Comment on above: Performed By: #### 5 102, [id number] #### [facility] [address] [place] [address], [facility] Eosinophils (Bld) [#/Vol] 0.0 10*3/uL Normal 0.0-0.5 [facility] Comment on above: Performed By: #### 5 102, 49011 #### [facility] [address] [facility] [place] [address], [facility] Eosinophils/100 WBC (Bld) 1.2 % Normal 0.0-6.0 [facility] Comment on above: Performed By: #### 5 102, 05709 #### [facility] [address] [place] [address], [facility] Erythrocyte distribution width (RBC) [Ratio] 26.7 % High 11.5-15.0 [facility] Comment on above: Performed By: #### 5 102, 43852 #### [facility] [address] [facility] Hematocrit (Bld) [Volume fraction] 37.1 % Low 39.0-50.0 [facility] Comment on above: Performed By: #### 5 102, 63897 #### [facility] [address] [facility] Hemoglobin (Bld) [Mass/Vol] 11.1 g/dL Low 13.0-17.0 [facility] Comment on above: Performed By: #### 5 102, 17788 #### [facility] [address] [facility]. [address] IMM PLATELET FRAC 4.6 % Normal 0.8-6.3 [facility] Comment on above: Performed By: #### 5 102, 31707 #### [facility] [address] [facility]. [address] IMMATURE GRANS 0.3 % Normal 0.0-1.0 [facility] Comment on above: Performed By: #### 5 102, 83420 #### [facility] [address] [facility]. [address] Lymphocytes (Bld) [#/Vol] 0.5 10*3/uL Low 1.2-4.0 [facility] Comment on above: Performed By: #### 5 102, 43357 #### [facility] [address] [facility] [place] [address], [facility] Lymphocytes/100 WBC (Bld) 13.5 % Low 20.0-45.0 [facility] Comment on above: Performed By: #### 5 102, 16807 #### [facility] [address] [facility] [place] [address], [facility] MCH (RBC) [Entitic mass] 26.9 pg Low 27.0-33.0 [facility] Comment on above: Performed By: #### 5 102, 29487 #### [facility] [address] [place] [address], [facility] MCHC (RBC) [Mass/Vol] 29.9 g/dL Low 32.0-35.0 [facility] Comment on above: Performed By: #### 5 010, 13359 #### [facility] [address] [place] [address], [facility] MCV (RBC) [Entitic vol] 90.0 fL Normal 82.0-98.0 T [facility] Comment on above: Performed By: #### 5 010, 83009 #### [facility] [address] [place] [address], [facility] Monocytes (Bld) [#/Vol] 0.5 10*3/uL Normal 0.1-1.0 [facility] Comment on above: Performed By: #### 5 010, 52463 #### [facility] [address] [place] [address], [facility] MONOS 14.0 % High 5.0-12.0 [facility] Comment on above: Performed By: #### 5 010, 48711 #### [facility] [address] [place] [address], [facility] Neutrophils/100 WBC (Bld) 70.4 % Normal 40.0-72.0 [facility] Comment on above: Performed By: #### 5 010, 13261 #### [facility] [address] [place] [address], [facility] Nucleated RBC/100 WBC (Bld) [Ratio] 0 % Normal 0-0 [facility] Comment on above: Performed By: #### 5 010, 99653 #### [facility] [address] [place] [address], [facility] OVALOCYTES Slight Normal [facility] Comment on above: Performed By: #### 5 0103, 90300 #### [facility] [address] [place] [address], [facility] PLAT CNT 91 10*3/uL Low 150-400 [facility] Comment on above: Performed By: #### 5 0103, 55848 #### [facility] [address] [place] [address], [facility] POIK Moderate Normal [facility] Comment on above: Performed By: #### 5 0103, 49272 #### [facility] [address] [place] [address], [facility] RBC (Bld) [#/Vol] 4.12 10*6/uL Low 4.20-5.70 [facility] Comment on above: Performed By: #### 5 010, 32296 #### [facility] [address] [place] [address], [facility] WBC (Bld) [#/Vol] 3.42 10*3/uL Low 4.00-10.60 [facility] Comment on above: Performed By: #### 5 0103, 97256 #### [facility] [address] [place] [address], [facility] COMP METABOLIC PANELon 11-09 Albumin [Mass/Vol] 4.0 g/dL Normal 3.5-5.7 [facility] Comment on above: Performed By: #### 0 0121, 43510, 68424, 47378, 27043, 25428 #### [facility] [address] [place] [address], [facility] ALKALINE PHOSPH 64 IU/L Normal 34-104 [facility] Comment on above: Performed By: #### 0 0121, 28509, 41437, 09043, 58306, 67675 #### [facility] [address] ALT [Catalytic activity/Vol] 39 U/L Normal 7-52 [facility] Comment on above: Performed By: #### 0 0121, 12294, 49598, 58636, 10635, 68355 #### [facility] [address] [place] [address], [place] AST [Catalytic activity/Vol] 39 U/L Normal 13-39 [facility] Comment on above: Performed By: #### 0 0121, 46384, 21376, 62421, 47199, 70817 #### [facility] [address] [place] [address], [place] Bilirubin [Mass/Vol] 0.6 mg/dL Normal 0.3-1.0 [facility] Comment on above: Performed By: #### 0 0121, 26709, 49951, 79083, 78113, 31453 #### [facility] [address] [place] [address], [place] Calcium [Mass/Vol] 9.2 mg/dL Normal 8.6-10.3 [facility] Comment on above: Performed By: #### 0 0121, 84505, 90904, 54976, 20738, 54347 #### [facility] [address] [place] [address], [place] Chloride [Moles/Vol] 103 mmol/L Normal 98-107 [facility] Comment on above: Performed By: #### 0 0121, 84454, 45362, 06195, 78951, 74809 #### [facility] [address] [place] [address], [place] CO2 [Moles/Vol] 27 mmol/L Normal 21-31 [facility] Comment on above: Performed By: #### 0 0121, 26779, 72228, 21735, 53407, 52679 #### [facility] [address] [place] [address], [place] Creatinine [Mass/Vol] 0.80 mg/dL Normal 0.70-1.30 [facility] Comment on above: Performed By: #### 0 0121, 92941, 14104, 83271, 48983, 75587 #### [facility] [address] [place] [address], [place] GFR/1.73 sq M.predicted among blacks MDRD (S/P/Bld) [Vol rate/Area] mL/min/{1.73_m2} Normal >60 [facility] Comment on above: Result Comment: Calc ulation may not be valid for patients over 70 years Performed By: #### 0 0121, 14395, 68512, 97739, 23445, 94004 #### [facility] [address] [place] [address], [place] GFR/1.73 sq M.predicted among non-blacks MDRD (S/P/Bld) [Vol rate/Area] mL/min/{1.73_m2} Normal >60 [facility] Comment on above: Result Comment: Calc ulation may not be valid for patients over 70 years Performed By: #### 0 0121, 42301, 15296, 26782, 30512, 52721 #### [facility] [address] [place] [address], [place] Glucose [Mass/Vol] 78 mg/dL Normal 70-100 [facility] Comment on above: Performed By: #### 0 0121, 73640, 53113, 41510, 27982, 13745 #### [facility] [address] [place] [address], [place] Potassium [Moles/Vol] 3.9 mmol/L Normal 3.5-5.1 [facility] Comment on above: Performed By: #### 0 0121, 56673, 20279, 91710, 75232, 51316 #### [facility] [address] [place] [address], [place] Protein [Mass/Vol] 7.3 g/dL Normal 6.0-8.3 [facility] Comment on above: Performed By: #### 0 0121, 28794, 71943, 76995, 67059, 42687 #### [facility] [address] [place] [address], [facility] Sodium [Moles/Vol] 137 mmol/L Normal 136-145 [facility] Comment on above: Performed By: #### 0 0121, 36757, 18743, 19787, 98461, 01404 #### [facility] [address] [place] [address], [facility] Urea nitrogen [Mass/Vol] 11 mg/dL Normal 7-25 [facility] Comment on above: Performed By: #### 0 0121, 42009, 66174, 61808, 59240, 17271 #### [facility] [address] [place] [id number], [facility] FERRITINon 11-09-2021 Ferritin [Mass/Vol] 34 ng/mL Normal 24-336 [facility] Comment on above: Performed By: #### 0 0121, 78964, 58131, 86012, 00550, 39768 #### [facility] [address] [place] [address], [facility] FOLATE SERUMon 11-09-2021 SERUM FOLATE 12.15 ng/mL Normal 6.60-1000.00 [facility] Comment on above: Result Comment: Norm al range reflects World Health Organization International Standard Performed By: #### 0 0121, 06487, 44405, 86009, 27786, 67007 #### [facility] [address] [place] [address], [facility] HAPTOGLOBINon 11-09-2021 HAPTOGLOBIN 43 mg/dL Normal 26-164 [facility] Comment on above: Performed By: #### 5 0103, 82104 #### [facility] [address] [facility] [address] HEMATOLOGY COMPLETE EVALUATI ON siPARDIGMon 11-09-2021 RESULT Results faxed to ordering physician and sent to HIM Normal [facility] Comment on above: Result Comment: Test performed by [facility] [employer] * [address], [address] * [place], [place] * [phone] Biological Chemist: Aguilar Winston M.D. RESULTS FAXED TO [phone] Performed By: #### 5 0103, 53985 #### [facility] [address] [facility] [place] [address], [facility] LDH BLOODon 11-09-2021 LDH 114 Units/L Low 140-271 [facility] Comment on above: Performed By: #### 0 0121, 07601, 34345, 90303, 67891, 90615 #### [facility] [address] [facility]. [address] RETICULOCYTE PANELon 022 ABSOLUTE RETICULOCYTE 0.0548 10*6/uL Normal 0.02 50-0.100 0 [facility] Comment on above: Performed By: #### 5 0103, 77272 #### [facility] [address] [facility]. [address] IMMATURE RETICULOCYTE FRACTION 11.0 % Normal 2.0-16.0 [facility] Comment on above: Performed By: #### 5 0103, 05611 #### [facility] [address] [facility] [place] [address], [facility] RETIC COUNT 1.33 % Normal 0.50-1.80 [facility] Comment on above: Performed By: #### 5 0103, 28557 #### [facility] [address] RETICULOCYTE HEMOGLOBIN 42.0 pg High 28.0-36.0 T he [facility] Comment on above: Performed By: #### 5 0103, 91976 #### [facility] [address] [facility] [place] [address], [facility] TIBC- INCLUDES IRONon 2021 FE SATURATION 16 % Low 20-50 [facility] Comment on above: Performed By: #### 0 0121, 10807, 62965, 70057, 00824, 14041 #### [facility] [address] [facility] [place] [address], [facility] Iron [Mass/Vol] 67 ug/dL Normal 50-212 [facility] Comment on above: Performed By: #### 0 0121, 16387, 25373, 10904, 47596, 02703 #### [facility] [address] [facility] [place] [address], [facility] TIBC 420 mcg/dL Normal 250-450 [facility] Comment on above: Performed By: #### 0 0121, 35550, 55453, 94014, 49987, 92631 #### [facility] [address] [facility]. [address] UIBC 353 mcg/dL Normal 155-355 [facility] Comment on above: Performed By: #### 0 0121, 75044, 15327, 43916, 79262, 72691 #### [facility] [address] [facility]. [address] VITAMIN B12on 11-09-2021 Cobalamin (Vitamin B12) [Mass/Vol] 733 pg/mL Normal 180-914 [facility] Comment on above: Result Comment: REFE RENCE RANGES: 180-914 pg/mL Normal 145-179 pg/mL Indeterminate <145 pg/mL Deficient Performed By: #### 0 0121, 90588, 43192, 30936, 26977, 83053 #### [facility] [address] [facility] [place] [address], [facility] CBC W/DIFFon 09-15-2021 ABS IMM GRANS 0.0 10*3/uL Normal 0.0-0.2 [facility] Comment on above: Performed By: #### 5 0103 #### [facility] [address] [facility] [place] [address], [facility] ABS NEUTROPHILS 1.7 10*3/uL Normal 1.6-7.6 [facility] Comment on above: Performed By: #### 5 0103 #### [facility] [address] [place] [address], [facility] ANISO Moderate Normal [facility] Comment on above: Performed By: #### 5 0103 #### [facility] [address] [place] [address], [facility] Basophils (Bld) [#/Vol] 0.0 10*3/uL Normal 0.0-0.2 [facility] Comment on above: Performed By: #### 5 0103 #### [facility] [address] [place] [address], [facility] Basophils/100 WBC (Bld) 0.5 % Normal 0.0-1.0 T he [facility] Comment on above: Performed By: #### 5 0103 #### [facility] [address] [place] [address], [facility] ELLIPTOCYTES Slight Normal [facility] Comment on above: Performed By: #### 5 0103 #### [facility] [address] [facility] [place] [address], [facility] Eosinophils (Bld) [#/Vol] 0.0 10*3/uL Normal 0.0-0.5 [facility] Comment on above: Performed By: #### 5 0103 #### [facility] [address] [facility] [place] [address], [facility] Eosinophils/100 WBC (Bld) 0.9 % Normal 0.0-6.0 [facility] Comment on above: Performed By: #### 5 0103 #### [facility] [address] Erythrocyte distribution width (RBC) [Ratio] 18.6 % High 11.5-15.0 [facility] Comment on above: Performed By: #### 5 3 #### [facility] [address] Hematocrit (Bld) [Volume fraction] 24.4 % Low 39.0-50.0 [facility] Comment on above: Performed By: #### 3 #### [facility] [address] Hemoglobin (Bld) [Mass/Vol] 6.8 g/dL Low 13.0-17.0 [facility] Comment on above: Performed By: #### 102 #### [facility] [address] IMM PLATELET FRAC 6.0 % Normal 0.8-6.3 [facility] Comment on above: Performed By: #### 5 3 #### [facility] [address] IMMATURE GRANS 0.0 % Normal 0.0-1.0 [facility] Comment on above: Performed By: #### 5 3 #### [facility] [address] Lymphocytes (Bld) [#/Vol] 0.2 10*3/uL Low 1.2-4.0 [facility] Comment on above: Performed By: #### 5 3 #### [facility] [address] Lymphocytes/100 WBC (Bld) 10.9 % Low 20.0-45.0 [facility] Comment on above: Performed By: #### 5 3 #### [facility] [address] MCH (RBC) [Entitic mass] 22.1 pg Low 27.0-33.0 [facility] Comment on above: Performed By: #### 5 0103 #### [facility] [address] MCHC (RBC) [Mass/Vol] 27.9 g/dL Low 32.0-35.0 [facility] Comment on above: Performed By: #### 5 0103 #### [facility] [address] [place] [address], [facility] MCV (RBC) [Entitic vol] 79.2 fL Low 82.0-98.0 T [facility] Comment on above: Performed By: #### 5 0103 #### [facility] [address] Monocytes (Bld) [#/Vol] 0.3 10*3/uL Normal 0.1-1.0 [facility] Comment on above: Performed By: #### 5 0103 #### [facility] [address] MONOS 12.2 % High 5.0-12.0 [facility] Comment on above: Performed By: #### 5 0103 #### [facility] [address] Neutrophils/100 WBC (Bld) 75.5 % High 40.0-72.0 [facility] Comment on above: Performed By: #### 5 0103 #### [facility] [address] [place] [address], [facility] Nucleated RBC/100 WBC (Bld) [Ratio] 0 % Normal 0-0 [facility] Comment on above: Performed By: #### 5 0103 #### [facility] [address] OVALOCYTES Slight Normal [facility] Comment on above: Performed By: #### 5 0103 #### [facility] [address] [place] [address], [facility] PLAT CNT 91 10*3/uL Low 150-400 [facility] Comment on above: Performed By: #### 5 3 #### [facility] [address] POIK Moderate Normal [facility] Comment on above: Performed By: #### 5 0103 #### [facility] [address] [facility] [place] [address], [facility] POLY Slight Normal [facility] Comment on above: Performed By: #### 5 0103 #### [facility] [address] [facility] RBC (Bld) [#/Vol] 3.08 10*6/uL Low 4.20-5.70 [facility] Comment on above: Performed By: #### 5 0103 #### [facility] [address] [facility]. [address] WBC (Bld) [#/Vol] 2.21 10*3/uL Low 4.00-10.60 [facility] Comment on above: Performed By: #### 5 3 #### [facility] [address] [facility]. [address] COMP METABOLIC PANELon 09-15 Albumin [Mass/Vol] 3.6 g/dL Normal 3.5-5.7 [facility] Comment on above: Performed By: #### 5 102, 44139 #### [facility] [address] [facility]. [address] ALKALINE PHOSPH 57 IU/L Normal 34-104 [facility] Comment on above: Performed By: #### 5 102, 80953 #### [facility] [address] [place] [address], [place] ALT [Catalytic activity/Vol] 24 U/L Normal 7-52 [facility] Comment on above: Performed By: #### 5 102, 15825 #### [facility] [address] [place] [address], [place] AST [Catalytic activity/Vol] 29 U/L Normal 13-39 [facility] Comment on above: Performed By: #### 5 010, 38496 #### [facility] [address] [place] [address], [place] Bilirubin [Mass/Vol] 0.5 mg/dL Normal 0.3-1.0 [facility] Comment on above: Performed By: #### 5 102, 53388 #### [facility] [address] [place] [address], [place] Calcium [Mass/Vol] 8.8 mg/dL Normal 8.6-10.3 [facility] Comment on above: Performed By: #### 5 102, 53416 #### [facility] [address] [place] [address], [place] Chloride [Moles/Vol] 104 mmol/L Normal 98-107 [facility] Comment on above: Performed By: #### 5 102, 40844 #### [facility] [address] [place] [address], [place] CO2 [Moles/Vol] 26 mmol/L Normal 21-31 [facility] Comment on above: Performed By: #### 5 102, 24509 #### [facility] [address] [place] [address], [place] Creatinine [Mass/Vol] 0.79 mg/dL Normal 0.70-1.30 [facility] Comment on above: Performed By: #### 5 102, 37452 #### [facility] [address] [place] [address], [place] GFR/1.73 sq M.predicted among blacks MDRD (S/P/Bld) [Vol rate/Area] mL/min/{1.73_m2} Normal >60 [facility] Comment on above: Result Comment: Calc ulation may not be valid for patients over 70 years Performed By: #### 5 0103, 85660 #### [facility] [address] [place] [address], [place] GFR/1.73 sq M.predicted among non-blacks MDRD (S/P/Bld) [Vol rate/Area] mL/min/{1.73_m2} Normal >60 [facility] Comment on above: Result Comment: Calc ulation may not be valid for patients over 70 years Performed By: #### 5 0103, 26831 #### [facility] [address] [place] [address], [place] Glucose [Mass/Vol] 123 mg/dL High 70-100 [facility] Comment on above: Performed By: #### 5 010, 18923 #### [facility] [address] [place] [address], [place] Potassium [Moles/Vol] 3.8 mmol/L Normal 3.5-5.1 [facility] Comment on above: Performed By: #### 5 0103, 10111 #### [facility] [address] [place] [address], [place] Protein [Mass/Vol] 6.8 g/dL Normal 6.0-8.3 [facility] Comment on above: Performed By: #### 5 0103, 61412 #### [facility] [address] [place] [address], [place] Sodium [Moles/Vol] 137 mmol/L Normal 136-145 [facility] Comment on above: Performed By: #### 5 0103, 51903 #### [facility] [address] [place] [address], [place] Urea nitrogen [Mass/Vol] 10 mg/dL Normal 7-25 [facility] Comment on above: Performed By: #### 5 2103, 81635 #### [facility] [address] [address] Vital Signs Date Time Vital Sign Value Performing Clinician Facility 04-23-2024 14:06-0400 Body height 104.14 cm JR Gian Horta Work Phone: [facility] 04-23-2024 14:06-0400 Body mass index (BMI) [Ratio] 46 kg/m2 JR Gian Horta Work Phone: [facility] 04-23-2024 14:06-0400 Body temperature 97.8 [degF] JR Gian Horta Work Phone: [facility] 04-23-2024 14:06-0400 Body weight 49.89 kg JR Gian Horta Work Phone: [facility] 04-23-2024 14:06-0400 Diastolic blood pressure 62 mm[Hg] JR Gian Horta Work Phone: [facility] 04-23-2024 14:06-0400 Heart rate 72 /min JR Gian Horta Work Phone: [facility] 04-23-2024 14:06-0400 Respiratory rate 20 /min JR Gian Horta Work Phone: [facility] 04-23-2024 14:06-0400 SaO2% (BldA) [Mass fraction] 97 % JR Gian Horta Work Phone: [facility] 04-23-2024 14:06-0400 Systolic blood pressure 136 mm[Hg] JR Gian Horta Work Phone: [facility] 07-19-2023 13:00-0400 Diastolic blood pressure 74 mm[Hg] Robert Gomez Other [employer] Other 07-19-2023 13:00-0400 SaO2% (BldA) [Mass fraction] 99 % Robert Gomez Other [facility] [employer] Other 07-19-2023 13:00-0400 Systolic blood pressure 136 mm[Hg] Robert Gomez Other [facility] Other 05-09-2023 09:23-0400 Blood Pressure Location Mohharish Vickey [facility] 05-09-2023 09:23-0400 Diastolic blood pressure 63 mm[Hg] Mohharish Vickey [facility] 05-09-2023 09:23-0400 Heart rate 97 /min Mohamed Vickey [facility] 05-09-2023 09:23-0400 SaO2% (BldA) [Mass fraction] 99 % Mohharish Vickey [facility] 05-09-2023 09:23-0400 Systolic blood pressure 129 mm[Hg] Mohharish Vickey [facility] 04-08-2023 08:29-0400 Diastolic blood pressure 56 mm[Hg] Mohamed Vickey [facility] 04-08-2023 08:29-0400 Heart rate 98 /min Mohharish Vickey [facility] 04-08-2023 08:29-0400 Mean blood pressure 82 mm[Hg] Mohamed Vickey [facility] 04-08-2023 08:29-0400 Systolic blood pressure 134 mm[Hg] Mohamed Vickey [facility] 04-08-2023 08:29-0400 Heart rate 100 /min Mohamed Vickey [facility] 04-08-2023 08:29-0400 SaO2% (BldA) [Mass fraction] 100 % Mohamed Vickey [facility] 04-08-2023 08:29-0400 Respiratory rate 17 /min Erwin Hurd [facility] 04-08-2023 08:29-0400 Diastolic blood pressure 66 mm[Hg] Erwin Hurd [facility] 04-08-2023 08:29-0400 Mean blood pressure 85 mm[Hg] Erwin Hurd [facility] 04-08-2023 08:29-0400 Systolic blood pressure 124 mm[Hg] Erwin Hurd [facility] 03-10-2023 12:03-0400 Hourly Rounding [facility] 03-10-2023 12:03-0400 Promise to Return [facility] 03-10-2023 11:37-0400 Heart rate 75 /min [facility] 03-10-2023 11:37-0400 SaO2% (BldA) [Mass fraction] 100 % [facility] 03-10-2023 11:37-0400 Body temperature 97.7 [degF] [facility] 03-10-2023 11:37-0400 Diastolic blood pressure 54 mm[Hg] [facility] 03-10-2023 11:37-0400 Mean blood pressure 81 mm[Hg] [facility] 03-10-2023 11:37-0400 Systolic blood pressure 136 mm[Hg] [facility] 03-10-2023 11:00-0400 Hourly Rounding [facility] 03-10-2023 11:00-0400 Promise to Return [facility] 03-10-2023 10:00-0400 Hourly Rounding [facility] 03-10-2023 10:00-0400 Promise to Return [facility] 03-10-2023 08:48-0400 gluc 116 mg/dL [facility] 03-10-2023 08:13-0400 Heart rate 118 /min [facility] 03-10-2023 08:13-0400 SaO2% (BldA) [Mass fraction] 96 % [facility] 03-10-2023 08:13-0400 Body temperature 98.06 [degF] [facility] 03-10-2023 08:12-0400 Diastolic blood pressure 69 mm[Hg] [facility] 03-10-2023 08:12-0400 Mean blood pressure 90 mm[Hg] [facility] 03-10-2023 08:12-0400 Systolic blood pressure 131 mm[Hg] [facility] 03-10-2023 00:40-0400 Blood Pressure Location [facility] 03-10-2023 00:40-0400 Body temperature 97.7 [degF] [facility] 03-10-2023 00:40-0400 Diastolic blood pressure 65 mm[Hg] [facility] 03-10-2023 00:40-0400 Heart rate 120 /min [facility] 03-10-2023 00:40-0400 Mean blood pressure 80 mm[Hg] [facility] 03-10-2023 00:40-0400 Respiratory rate 18 /min [facility] 03-10-2023 00:40-0400 SaO2% (BldA) [Mass fraction] 97 % [facility] 03-10-2023 00:40-0400 Systolic blood pressure 109 mm[Hg] [facility] 03-09-2023 17:18-0400 gluc 98 mg/dL [facility] 03-09-2023 11:50-0400 gluc 219 mg/dL [facility] 03-09-2023 09:22-0400 Heart rate 116 /min [facility] 03-09-2023 03:42-0400 Mean blood pressure 94 mm[Hg] [facility] 03-08-2023 16:08-0400 Mean blood pressure 100 mm[Hg] [facility] 03-08-2023 16:00-0400 Respiratory rate 18 /min [facility] 03-08-2023 11:00-0400 Respiratory rate 16 /min [facility] 03-08-2023 05:51-0400 Body temperature 97.16 [degF] [facility] 03-08-2023 05:51-0400 Mean blood pressure 105 mm[Hg] [facility] 03-07-2023 21:15-0400 Body temperature 98.06 [degF] [facility] 03-06-2023 09:34-0400 Heart rate 92 /min [facility] 03-05-2023 08:00-0400 Heart rate 84 /min [facility] 03-03-2023 12:51-0400 Body temperature 98.42 [degF] [facility] 03-03-2023 12:51-0400 Respiratory rate 17 /min [facility] 03-03-2023 12:40-0400 Respiratory rate 18 /min [facility] 03-03-2023 12:35-0400 Respiratory rate 18 /min [facility] 03-03-2023 12:26-0400 Body temperature 98.06 [degF] [facility] 03-01-2023 18:04-0400 Heart rate 120 /min [facility] 03-01-2023 17:45-0400 Heart rate 113 /min [facility] 03-01-2023 16:45-0400 Heart rate 108 /min [facility] 02-23-2023 11:14-0400 gluc [facility] 02-17-2023 10:28-0400 Blood Pressure Location Erwin Hurd [facility] 02-17-2023 10:28-0400 Diastolic blood pressure 63 mm[Hg] Erwin Hurd [facility] 02-17-2023 10:28-0400 Heart rate 108 /min Erwin Hurd [facility] 02-17-2023 10:28-0400 SaO2% (BldA) [Mass fraction] 100 % Erwin Hurd [facility] 02-17-2023 10:28-0400 Systolic blood pressure 117 mm[Hg] Erwin Hurd [facility] 02-15-2023 16:53-0400 Diastolic blood pressure 85 mm[Hg] Brennon Cruz [facility] 02-15-2023 16:53-0400 Heart rate 108 /min Brennon Hartmane [facility] 02-15-2023 16:53-0400 Mean blood pressure 109 mm[Hg] Brennon Hartmane [facility] 02-15-2023 16:53-0400 Respiratory rate 18 /min Brennon Hartmane [facility] 02-15-2023 16:53-0400 SaO2% (BldA) [Mass fraction] 96 % Brennon Hartmane [facility] 02-15-2023 16:53-0400 Systolic blood pressure 156 mm[Hg] Brennon Hartmane [facility] 02-15-2023 16:00-0400 Diastolic blood pressure 66 mm[Hg] Brennon Hartmane [facility] 02-15-2023 16:00-0400 Heart rate 109 /min Brennon Hartmane [facility] 02-15-2023 16:00-0400 Respiratory rate 16 /min Brennon Hartmane [facility] 02-15-2023 16:00-0400 SaO2% (BldA) [Mass fraction] 100 % Brennon Hartmane [facility] 02-15-2023 16:00-0400 Systolic blood pressure 154 mm[Hg] Brennon Hartmane [facility] 02-15-2023 15:00-0400 Diastolic blood pressure 71 mm[Hg] Brennon Hartmane [facility] 02-15-2023 15:00-0400 Heart rate 91 /min Brennon Hartmane [facility] 02-15-2023 15:00-0400 SaO2% (BldA) [Mass fraction] 99 % Brennon Hartmane [facility] 02-15-2023 15:00-0400 Systolic blood pressure 155 mm[Hg] Brennon Hartmane [facility] 02-15-2023 11:02-0400 Body temperature 98.06 [degF] Brennon Hartmane [facility] 02-15-2023 11:02-0400 Heart rate 118 /min Brennon Hartmane [facility] 02-10-2023 13:15-0400 Blood Pressure Location Erwin Hurd [facility] 02-10-2023 13:15-0400 Diastolic blood pressure 75 mm[Hg] Mohamed Vickey [facility] 02-10-2023 13:15-0400 Heart rate 89 /min Mohamed Vickey [facility] 02-10-2023 13:15-0400 SaO2% (BldA) [Mass fraction] 100 % Mohamed Vickey [facility] 02-10-2023 13:15-0400 Systolic blood pressure 119 mm[Hg] Mohamed Vickey [facility] 01-06-2023 11:40-0400 Blood Pressure Location Mohamed Vickey [facility] 01-06-2023 11:40-0400 Diastolic blood pressure 60 mm[Hg] Mohamed Vickey [facility] 01-06-2023 11:40-0400 Heart rate 98 /min Mohamed Vickey [facility] 01-06-2023 11:40-0400 SaO2% (BldA) [Mass fraction] 99 % Mohamed Vickey [facility] 01-06-2023 11:40-0400 Systolic blood pressure 130 mm[Hg] Mohamed Vickey [facility] 12-23-2022 14:35-0400 Blood Pressure Location Mohamed Vickey [facility] 12-23-2022 14:35-0400 Diastolic blood pressure 70 mm[Hg] Mohamed Vickey [facility] 12-23-2022 14:35-0400 Heart rate 96 /min Mohamed Vickey [facility] 12-23-2022 14:35-0400 SaO2% (BldA) [Mass fraction] 100 % Mohamed Vickey [facility] 12-23-2022 14:35-0400 Systolic blood pressure 120 mm[Hg] Erwin Vickey [facility] 12-09-2022 11:43-0500 Blood Pressure Location Erwin Hurd [facility] 12-09-2022 11:43-0500 Diastolic blood pressure 69 mm[Hg] Erwin Vickey [facility] 12-09-2022 11:43-0500 Heart rate 88 /min Erwin Sheaan [facility] 12-09-2022 11:43-0500 SaO2% (BldA) [Mass fraction] 96 % Erwin Hurd [facility] 12-09-2022 11:43-0500 Systolic blood pressure 105 mm[Hg] Erwin Sheaan [facility] 11-22-2022 11:42-0500 Blood Pressure Location Erwin Hurd [facility] 11-22-2022 11:42-0500 Diastolic blood pressure 80 mm[Hg] Erwin Hurd [facility] 11-22-2022 11:42-0500 Heart rate 75 /min Erwin Sheaan [facility] 11-22-2022 11:42-0500 SaO2% (BldA) [Mass fraction] 98 % Erwin Sheaan [facility] 11-22-2022 11:42-0500 Systolic blood pressure 130 mm[Hg] [facility] Encounters Encounter Date Encounter Type Care Provider Facility Start: 04-23-2024 End: 04-23-2024 ambulatory JR Gian Horta Work Phone: [facility] Work Phone: Start: 04-23-2024 End: 04-23-2024 Patient encounter procedure JR Gian Horta Work Phone: [facility] Work Phone: Start: 04-23-2024 Registered Recurring JR Hua Horta Work Phone: [facility] Work Phone: Start: 04-09-2024 End: 04-09-2024 ambulatory [facility] Start: 04-05-2024 End: 04-05-2024 ambulatory [facility] Start: 03-22-2024 End: 03-22-2024 ambulatory [facility] Start: 03-13-2024 End: 03-13-2024 ambulatory GIAN HORTA [facility] Start: 03-06-2024 End: 03-06-2024 ambulatory GIAN HORTA [facility] Start: 02-16-2024 End: 02-16-2024 ambulatory [facility] Start: 02-09-2024 End: 03-10-2024 ambulatory NATY Savage [facility] Start: 02-02-2024 End: 02-02-2024 ambulatory [facility] Start: 01-19-2024 End: 01-19-2024 ambulatory Jacob Bernardo Facility:[facility] Start: 01-19-2024 End: 01-19-2024 ambulatory MD Jacob Bernardo Work Phone: [facility] Work Phone: Start: 01-19-2024 End: 01-19-2024 Departed Referred MD Jacob Bernardo Work Phone: [facility] Start: 01-04-2024 End: 01-04-2024 ambulatory TANJA [facility] Start: 12-23-2023 Encounter for other preprocedural examination [facility] Start: 12-21-2023 Encounter for other preprocedural examination [facility] Start: 12-21-2023 End: 12-24-2023 Evaluation and management of inpatient [facility] Start: 12-16-2023 ambulatory [facility] Start: 12-07-2023 Orders Only Angeles Mendes 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 Work 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: [facility] Comment on above: Anemia, unspecified type (Primary Dx) Start: 12-01-2023 End: 12-01-2023 ambulatory ANGELES MENDES [facility] Start: 11-30-2023 ambulatory TANJA [facility] Start: 11-19-2023 Evaluation and management [facility] Start: 11-18-2023 [facility]: [facility]: 11-17-2023 Emergency department patient visit REBECCA ZUNIGA [facility] Start: 11-17-2023 End: 11-21-2023 Evaluation and management of inpatient EVELYN [facility] Start: 11-03-2023 Evaluation and management of inpatient [facility] Start: 11-02-2023 Evaluation and management of inpatient [facility] Start: 11-02-2023 End: 11-08-2023 Evaluation and management of inpatient [facility] Start: 11-02-2023 ambulatory [facility] Start: 10-31-2023 End: 11-24-2023 Pre-admission assessment Master Garcia [facility] Start: 10-26-2023 ambulatory TANJA NUGENT [facility] Start: 10-26-2023 End: 10-26-2023 ambulatory [facility] Start: 10-19-2023 End: 10-19-2023 ambulatory [facility] Start: 10-17-2023 End: 10-17-2023 ambulatory SALINA SLADE [facility] Start: 10-17-2023 End: 10-17-2023 [facility] Start: 10-12-2023 End: 10-13-2023 Emergency department patient visit GIAN HORTA [facility] Start: 10-12-2023 End: 10-12-2023 ambulatory [facility] Start: 10-05-2023 End: 10-05-2023 ambulatory [facility] Start: 09-28-2023 End: 10-10-2023 ambulatory NATY MANNING [facility] Start: 09-21-2023 Evaluation and management of inpatient JUHI ALLEN [facility] Start: 09-19-2023 Evaluation and management of inpatient TANJA [facility] Start: 09-18-2023 [facility] Start: 09-18-2023 End: 09-26-2023 Evaluation and management of inpatient ROSSANA MIRZA [facility] Start: 09-18-2023 Emergency department patient visit YASIR NICHOLAS [facility] Start: 08-31-2023 End: 08-31-2023 ambulatory ERWIN HURD [facility] Start: 07-21-2023 Telephone encounter Robert Gomez [facility] Start: 07-21-2023 End: 07-21-2023 ambulatory Robert Gomez Other [employer] Other Start: 07-19-2023 End: 07-19-2023 ambulatory Robert Gomez Other [facility] [employer] Other Start: 07-19-2023 Office outpatient vi sit 25 minutes Robert Gomez [facility] Start: 06-20-2023 ambulatory ERWIN HURD [facility] Start: 05-16-2023 ambulatory ERWIN HURD [facility] Start: 05-09-2023 End: 05-10-2023 ambulatory MD Erwin Hurd Facility:[facility] Start: 05-09-2023 End: 05-09-2023 Patient encounter procedure Erwin Hurd [facility] Start: 04-11-2023 End: 04-11-2023 ambulatory MD Erwin Hurd Facility:[facility] Start: 04-08-2023 End: 04-09-2023 ambulatory MD Erwin Hurd Facility:[facility] Start: 04-08-2023 End: 04-08-2023 Patient encounter procedure Erwin Hurd [facility] Start: 04-04-2023 End: 04-05-2023 ambulatory MD Erwin Hurd Facility:[facility] Start: 04-04-2023 End: 04-04-2023 Patient encounter procedure Erwin Hurd [facility] Start: 03-30-2023 End: 04-14-2023 Pre-admission assessment Erwin Hurd [facility] Start: 03-17-2023 End: 03-18-2023 ambulatory MD Erwin Hurd Facility:[facility] Start: 03-08-2023 End: 03-09-2023 ambulatory Bekah Jakub LAUREN Facility:[facility] Start: 02-23-2023 End: 03-10-2023 Evaluation and management of inpatient Ramos HERRING [facility] Start: 02-17-2023 End: 02-17-2023 Patient encounter procedure Erwin Hurd [facility] Start: 02-15-2023 End: 02-15-2023 Emergency department patient visit Brennon Cruz [facility] Start: 02-15-2023 End: 02-16-2023 Pre-admission assessment Erwin Hurd [facility] Start: 02-14-2023 End: 02-16-2023 Pre-admission assessment Erwin Hurd [facility] Start: 02-10-2023 End: 02-10-2023 Patient encounter procedure Erwin Hurd [facility] Start: 02-09-2023 End: 02-09-[address] GIAN HORTA Facility:[facility] Start: 01-29-2023 End: 01-29-[address] [facility] Facility[facility] Start: 01-29-2023 End: 01-29-[address] GIAN HORTA Facility:[facility] Start: 01-06-2023 End: 01-06-2023 Patient encounter procedure Erwin Hurd [facility] Start: 12-23-2022 End: 12-23-2022 Patient encounter procedure Erwin Hurd [facility] Start: 12-09-2022 End: 12-09-2022 Patient encounter procedure Erwin Hurd [facility] Start: 11-29-2022 End: 11-30-2022 Pre-admission assessment Erwin Hurd [facility] Start: 11-22-2022 End: 11-22-2022 Patient encounter procedure Erwin Hurd [facility] Start: 11-13-2022 End: 11-15-2022 ambulatory UNKNOWN PROVIDER Facility:[facility] Start: 11-13-2022 End: 11-13-[address] GIAN HORTA Facility:[facility] Start: 11-08-2022 End: 01-07-2023 Pre-admission assessment GIAN HORTA JR [facility] Start: 11-03-2022 Encounter for other preprocedural examination ERWIN HURD [facility] Start: 11-01-2022 End: 11-02-2022 ambulatory ERWIN HURD Facility:[facility] Start: 11-01-2022 End: 11-02-2022 Encounter for other preprocedural examination ERWIN HURD Facility:[facility] Start: 10-20-2022 End: 10-21-[address] MARCO A OSWALD Facility:[facility] Start: 05-12-2021 End: 05-13-2021 ambulatory GIAN HORTA Facility:[facility] Procedures Date Procedure Procedure Detail Performing Clinician Start: 04-09-2024 Follow-up visit MILLI PITTMAN Start: 10-17-2023 Follow-up visit MILLI PITTMAN Start: 04-11-2023 Surgical debridement of wound Rhondaharish Hurd Start: 03-03-2023 Amputation above-knee A haley [...] 10-12-2024 Adult BMI Screening Adult BMI Screening [facility] Start: 10-12-2024 Tobacco Screening Tobacco Screening [facility] Start: 06-10-2023 COVID-19 Vaccine () COVID-19 Vaccine () [facility] Start: 06-10-2023 Influenza vaccination Influenza Vaccine [facility] Start: 12-12-2011 Fall Risk Screening Fall Risk Screening [facility] Start: 1996 Administration of varicella zoster vaccine Zoster (Shingles) Vaccine (1 of 2) [facility] Start: 1965 DTaP,Tdap and Td Vaccines (1 - Tdap) DTaP,Tdap and Td Vaccines (1 - Tdap) [facility] Start: 1958 Depression Screening Depression Screening [facility] Start: 1946 Medicare Annual Wellness Visit Medicare Annual Wellness Visit [facility] Comprehensive metabo lic 2000 panel - Serum or Plasma [facility] Erythropoietin (EPO) [Units/volume] in Serum or Plasma [facility] Payers Date Payer Category Payer Self-pay 2022 Private Health Insurance 2004 Medicare MEDICARE MEDICAR E PART A & B [id number] 2004-Present [phone] [address] [place] [address] [id number] 1959 Medicare [id number] 1959 Private Health Insurance CLI [id number] 1946 Unknown [id number] 2.16.840.1.893169.3.579.2.6 47 1946 Unknown [id number] 2.16.840.1.988606.3.579.2.7 32 1946 Unknown [id number] 2.16.840.1.797747.3.579.2.7 32 1946 Unknown [id number] 2.16.840.1.570363.3.579.2.5 93 1946 Unknown [id number] 2.16.840.1.576354.3.579.2.5 93 1946 Unknown [id number] 2.16.840.1.866827.3.579.2.5 93 1946 Unknown [id number] 2.16.840.1.510337.3.579.2.5 93 1946 Unknown [id number] 2.16.840.1.432100.3.579.2.5 93 1946 Unknown [id number] 2.16.840.1.423569.3.579.2.3 56 1946 Unknown [id number] 2.16.840.1.296956.3.579.2.7 27 1946 Unknown [id number] 2.16.840.1.797895.3.579.2.7 1946 Unknown [id number] 2.16.840.1.782212.3.579.2.7 27 1946 Unknown [id number] 2.16.840.1.665058.3.579.2.7 1946 Unknown [id number] 2.16.840.1.638435.3.579.2.7 27 1946 Unknown [id number] 2.16.840.1.450787.3.579.2.7 27 1946 Unknown [id number] 2.16.840.1.613576.3.579.2.7 27 1946 Unknown [id number] 2.16.840.1.097589.3.579.2.7 27 1946 Unknown [id number] 2.16.840.1.796360.3.579.2.1 286 1946 Unknown [id number] 2.16.840.1.789964.3.579.2.1 286 1946 Unknown [id number] 2.16.840.1.563271.3.579.2.1 286 1946 Unknown [id number] 2.16.840.1.701042.3.579.2.1 286 1946 Unknown [id number] 2.16.840.1.418183.3.579.2.1 286 1946 Unknown [id number] 2.16.840.1.345361.3.579.2.1 286 1946 Unknown [id number] 2.16.840.1.785367.3.579.2.1 286 1946 Unknown [id number] 2.16.840.1.827755.3.579.2.1 286 1946 Unknown [id number] 2.16.840.1.412273.3.579.2.1 286 1946 Unknown [id number] 2.16.840.1.468194.3.579.2.1 286 1946 Unknown [id number] 2.16.840.1.299630.3.579.2.1 286 1946 Unknown [id number] 2.16.840.1.383576.3.579.2.1 286 1946 Unknown [id number] 2.16.840.1.694966.3.579.2.1 286 1946 Unknown [id number] 2.16.840.1.239496.3.579.2.1 286 Unknown [id number] Social History Date Type Detail Facility Start: 11-22-2022 End: 04-23-2024 Tobacco smoking status Ex-smoker (finding) [facility] Tobacco smoking status Never [facility] Start: 11-20-2020 End: 10-12-2023 Sex Assigned At Male [facility] History of tobacco use Current smoker [facility] History of tobacco use Cigarette Smoker [facility] Start: 07-28-2023 Tobacco use and exposure Smokeless tobacco non-user [facility] Start: 10-12-2023 Alcohol intake Ex-drinker (finding) [facility] Start: 11-20-2020 End: 10-12-2023 History of Social function [facility] Start: 1945 Sex Assigned At Not on file P [facility] Start: 1945 Sex Assigned At Male [facility] Functional Status Date Assessment Result Facility 05-09-2023 Functional Status No [facility] 04-08-2023 Functional Status No [facility] 02-23-2023 Functional Status N/A [facility] 02-23-2023 Functional Status [facility] 02-17-2023 Functional Status N/A [facility] 02-15-2023 Functional Status N/A [facility] 02-10-2023 Functional Status No [facility] 01-06-2023 Functional Status No [facility] 12-23-2022 Functional Status No [facility] 12-09-2022 Functional Status No [facility] 11-22-2022 Functional Status No [facility] Clinical Notes 01-29-2023 to 04-09-2024 Note Date & Type Note Facility 04-09-2024 Note [facility] 01-04-2024 Note [facility] 12-24-2023 Note [facility] 12-24-2023 Note [facility] 12-23-2023 Note [facility] 12-23-2023 Note [facility] 12-23-2023 Note [facility] 12-23-2023 Note [facility] No pre-cert is needed but awaiting medical readiness. Pt/family aware. AVS updated. UPDATE 3:20PM- Pt medically ready but SNF not able to accept until tomorrow. has been updated. [facility] 12-23-2023 Note [facility] 12-22-2023 Note [facility] 12-22-2023 Note [facility] 12-22-2023 [facility] [facility] 12-22-2023 Note [facility] 12-22-2023 Note [facility] 12-21-2023 Note [facility] 12-21-2023 Note [facility] 12-16-2023 Note Notes in intellicure Patient for above kne amputation due to the gangrene of the stump [facility] 12-07-2023 Note [facility] 12-05-2023 Note [facility] 12-01-2023 Note [facility] 11-30-2023 Note [facility] 11-21-2023 Note Patient will be retu rning to [facility] this evening by [facility]. First available is 8:45pm. Let the facility and patient's know the discharge time. Sent the AVS to [facility]. [facility] 11-21-2023 Note [facility] 11-20-2023 Note hospitalist notified by nursing staff that patient spiked a temperature of 102 ???F during his posttransfusion vitals. Spoke with blood bank and they stated to order transfusion reaction protocol and they would contact nursing for further instructions. [facility] 11-20-2023 Note [facility] 11-20-2023 Note [facility] 11-20-2023 Note [facility] 11-20-2023 Note [facility] 11-20-2023 Note [facility] 11-19-2023 Note [facility] 11-19-2023 Note [facility] 11-18-2023 Note [facility] 11-18-2023 Note [facility] 11-18-2023 Note [facility] 11-18-2023 Note [facility] 11-08-2023 Note [facility] 11-08-2023 Note [facility] 11-08-2023 Note [facility] 11-08-2023 Note [facility] 11-08-2023 Note [facility] 11-07-2023 Note [facility] 11-07-2023 Note [facility] 11-07-2023 Note [facility] 11-07-2023 Note This report has been cancelled. [facility] 11-07-2023 Note [facility] 11-07-2023 Note Sent updates to 3 fo llowing SNF's but still needing OT/PT evals before they can accept. Requested orders be placed. UPDATE 2:20PM- Pt/'s 1st SN[address] choice [facility] stated they will be able to accept. Updated Ijeoma by phone and updated AVS. [facility] 11-06-2023 Note best worker spoke with patient's Ijeoma. Ijeoma reports that SNF choices at 1.) [place], 2.) [place] and 3.) [facility]. SNF referrals sent. OTM will continue to follow. [facility] 11-06-2023 Note [facility] 11-06-2023 Note [facility] 11-05-2023 Note [facility] 11-05-2023 Note [facility] 11-04-2023 Note [facility] 11-04-2023 Note [facility] 11-04-2023 Note [facility] 11-04-2023 Note [facility] 11-04-2023 Note [facility] 11-04-2023 Note [facility] 11-03-2023 Note Spiritual Care Note Patient name: Tu Joy Age: 77 y.o. Room: [address] [place] [address] Patients was not present. Unable to complete Advance Directives documents. [facility] 11-03-2023 Note [facility] 11-03-2023 Note [facility] 11-02-2023 Note [facility] 11-02-2023 Note [facility] 11-02-2023 Note [facility] 10-26-2023 Note [facility] 10-17-2023 Note [facility] 10-17-2023 Note [facility] 10-05-2023 Note [facility] 09-26-2023 Note [facility] 09-25-2023 Note [facility] 09-25-2023 Note [facility] 09-25-2023 Note [facility] 09-25-2023 Note Awaiting IV antibiot ic approval and delivery. Sent updates to Yissel Faustin. AVS updated. OTM will continue to follow. [facility] 09-24-2023 Note [facility] 09-24-2023 Note [facility] 09-24-2023 Note [facility] 09-24-2023 Note [facility] 09-23-2023 Note [facility] 09-23-2023 Note [facility] 09-23-2023 Note [facility] 09-23-2023 Note [facility] 09-22-2023 Note [facility] 09-22-2023 Note [facility] 09-22-2023 Note [facility] 09-22-2023 Note [facility] 09-22-2023 Note [facility] 09-22-2023 Note [facility] 09-22-2023 Note This report has been cancelled. [facility] 09-21-2023 Note [facility] 09-21-2023 Note [facility] 09-20-2023 Note [facility] 09-20-2023 Note [facility] 09-20-2023 Note [facility] 09-20-2023 Note [facility] 09-19-2023 Note [facility] 09-19-2023 Note [facility] 09-18-2023 Note [facility] 08-31-2023 Note Continue IV antibiot ics and serial examination. [facility] 08-31-2023 Note [facility] 08-12-2023 Note Scheduled EGD/Cln/An emia/GI Bleed/EV 08/15/23 @1230, [facility], Dr. Velasquez [facility], #[id number]. Urgent referral from Dr. Horta scanned in Media 08/12/23. Patient holding blood thinner since 07/12/23. 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 Therapy with home health for prosthetic training when obtained-patie nt reports has this in place If tolerates temp prosthesis can f/u 3-6 months for final definitive prosthesis evaluation/pre scription. Monitor for skin breakdown. [employer] Other 09-11-2023 NoteAKA stump and physical therapy. Follow- up in a year.[facility]09[facility] NoteContinue wound VAC and follow-up in a month. [facility]08-07-2023 [facility]06-30-2023 [id number]:127[facility]06-01[facility] Evaluation + Plan noteExtracted from: Title:Discharge Note Author:Alison FINNEGAN Date:03/10/23 Hemodynamically stable condi tion Discharge To, Anticipated II - Jail Unit Discharged to - Home with family [...] Oral, Supper nystatin 100,000 units/mL Oral Susp, 1042396 unit(s)= 15 mL, Oral, QIDACHS oxymetazoline Nasal 0.05% [place], 2 spray(s), Nasal, BID, PRN senna 8.6 mg Tab, 17.2 mg= 2 tab(s), Oral, BID, PRN SEROquel 25 mg Tab, 25 mg= 1 tab(s), Oral, Bedtime sodium chloride nasal 0.65% spray, 2 spray(s), Nasal, q2hr, PRN Verquvo 10 mg oral tablet, 10 mg= 1 tab(s), Oral, Daily With When Contact Information GIAN HORTA In 3 days 02/28/2023 EDT [address] [place] [address] Business (1) Additional Instructions: The office is closed on Fridays. Please contact your PCP on Tuesday, February 28 for an appointment. Thank you! Chong Coe Within 7 to 10 days [address] [place] [address]- Business (1) Additional Instructions: Erwin Hurd Within 5 to 7 days [address] [place] [address]- Business (1) Additional Instructions: Dami WISE, TAL Guidry Within 2 to 4 weeks [address] [place] [address]- Additional Instructions: Diabetes Mellitus and Nutrition, Adult Diabetes Mellitus and Foot Care Wound Infection, Bkug-rb-Tybe Extracted from: Title:APSO Note Author:Megan DONIS Date:03/09/23 [...] of right lower extremity (I70.221: Atherosclerosis of makah arteries of extremities with rest pain, right leg) - Atherosclerosis of makah arteries of extremities with rest pain, right [...] ID. Dressing changes as per orders. 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 -Severe malnutrition, dietitian [...] - afrin Orders: oxymetazoline nasal, 2 spray(s), [place], Nasal, TID for 72 hour(s), Stop date [...] of right lower extremity (I70.221: Atherosclerosis of makah arteries of extremities with rest pain, right leg) - Atherosclerosis of makah arteries of extremities with rest pain, right [...] of right lower extremity (I70.221: Atherosclerosis of makah arteries of extremities with rest pain, right [...] of right lower extremity (I70.221: Atherosclerosis of makah arteries of extremities with rest pain, right leg) - Atherosclerosis of makah arteries of extremities with rest pain, right [...] of right lower extremity (I70.221: Atherosclerosis of makah arteries of extremities with rest pain, right [...] procedure, unspecified, initial encounter) - Atherosclerosis of makah arteries of extremities with rest pain, right leg - 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 Call out yesterday. - On ASA, plavix, pletal Ordered: [facility] Hospital Care/Day High 50 Minutes 26032 2. Critical limb ischemia of right lower extremity (I70.221: Atherosclerosis of makah arteries of extremities with rest pain, right leg) - left groin infection, Dr. Hurd recommended continue wound vac to be changed every 3 days with black foam, 125 mmHg - On invanz IV daily, follow-up ID of 3 weeks of antibiotics - picc line in place Ordered: [facility] Hospital Care/Day High 50 Minutes 20098 3. Peripheral vascular disease (I73.9: Peripheral vascular disease, unspecified) - As above Ordered: [facility] Hospital Care/Day High 50 Minutes 07338 4. Acute metabolic encephalopathy (G93.41: Metabolic encephalopathy) [...] process - Neurology consulted again today. Ordered: [facility] Hospital Care/Day High 50 Minutes 95168 5. Anemia of chronic disease (D63.8: Anemia in other chronic diseases classified elsewhere) - Transfused 2 unit prbc 3 days ago - Hemoglobin stable - On iron infusion Ordered: [facility] Hospital Care/Day High 50 Minutes [id number] 6. Diabetes (E11.9: Type 2 diabetes mellitus without complications) - Metformin and SSI Ordered: [facility] Hospital Care/Day High 50 Minutes 81542 7. Chronic GERD (K21.9: Gastro-esophageal reflux disease without esophagitis) - Pepcid Ordered: [facility] Hospital Care/Day High 50 Minutes 25630 8. No contraindication to deep vein thrombosis (DVT) prophylaxis (Z78.9: Other specified health status) SCDs and Lovenox Ordered: [facility] Hospital Care/Day High 50 Minutes 70770 D/C tomorrow if cleared by neurology. Labs [...] of right lower extremity (I70.221: Atherosclerosis of makah arteries of extremities with rest pain, right [...] procedure, unspecified, initial encounter) - Atherosclerosis of makah arteries of extremities with rest pain, right leg - Status post right above-knee amputation 03/03 - Will call Vickey for further recommendations - On ASA, plavix, pletal 2. Critical limb ischemia of right lower extremity (I70.221: Atherosclerosis of makah arteries of extremities with rest pain, right [...] of right lower extremity (I70.221: Atherosclerosis of makah arteries of extremities with rest pain, right [...] of right lower extremity (I70.221: Atherosclerosis of makah arteries of extremities with rest pain, right [...] to ensure accuracy , however, inadvertently computerized scrum master mistakes may be present . Extracted from: Title:Progress Note * Author:Chong Coe M.D Date:03/04/23 Impression and Plan Diagnosis: Diagnosis: left groin wound fem pop infection partially treated already with 3 weeks of IV dapto/cefepime. . Orders Patient has been treated for a left groin wound postop vascular infection. Antibiotics were initially started after the infection was diagnosed at [facility]. Culture reportedly was negative per the . [...] of right lower extremity (I70.221: Atherosclerosis of makah arteries of extremities with rest pain, right [...] of right lower extremity (I70.221: Atherosclerosis of makah arteries of extremities with rest pain, right [...] to ensure accuracy , however, inadvertently computerized scrum master mistakes may be present . Extracted from: Title:ANES Post-operative Note---General Author: MD Siri, Jose F Payan Date:03/03/23 Plan Transfer/Discharge: Transfer/Discharge Discharge when meets criteria ( To home ). Extracted from: Title:ANES Pre-anesthesia - Adult 19 Author:Marianne torres MD, Ahmad F Date:03/03/23 Plan [place] Society of Anesthesiologists (ASA) physical status classification: [...] of right lower extremity (I70.221: Atherosclerosis of makah arteries of extremities with rest pain, right [...] the as cultures apparently were done in [place]. Extracted from: Title:APSO Note Author:Shayy BALLESTEROS MD [...] 21 days, picc line in place Ordered: [facility] Hospital Care/Day High 50 Minutes 49723 2. Critical limb ischemia of right lower extremity (I70.221: Atherosclerosis of makah arteries of extremities with rest pain, right [...] of right lower extremity (I70.221: Atherosclerosis of makah arteries of extremities with rest pain, right [...] of right lower extremity (I70.221: Atherosclerosis of makah arteries of extremities with rest pain, right [...] health Discharged to - Home with family intermediate Discharge Diet(s): Calorie Controlled- 1800 Calorie Diet [...] Oral, Supper nystatin 100,000 units/mL Oral Susp, 0885589 unit(s)= 15 mL, Oral, QIDACHS Verquvo 10 mg oral tablet, 10 mg= 1 tab(s), Oral, Daily With When Contact Information GIAN HORTA In 3 days 02/28/2023 EDT [address] [place] [address] Business (1) Additional Instructions: The office is closed on Fridays. Please contact your PCP on Tuesday, February 28 for an appointment. Thank you! Diabetes Mellitus and Nutrition, Adult Diabetes Mellitus and Foot Care Wound Infection, Qico-xg-Pmyp Discharge time >30 min Extracted from: Title:Infection Admission H&P * Author:Chong Coe M.D Date:02/25/23 Impression and Plan Diagnosis left groin wound fem pop infection partially treated already with 3 weeks of IV dapto/cefepime . Orders Patient's initial debridement on his left groin wound was done at [facility]. These records are not available for [...] Full Routine Capillary Glucose POC Up ad [place] Vital Signs Weight Extracted from: Title:ED Note [...] Complete Bilat 04/08/23 * CV Cardiovascular 02/15/23 [facility]06-01-2023 [facility]:Result Comment: Electronically Signed By: Serena FINNEGAN\.br\Date and Time Signed: 03/10/23 10:50 EDT\.br\Electronically Co-Signed By: Vazquez WISE, [place]\.br\Date and Time Co-Signed: 03/10/23 11:19 EDT 02-25-2023 NoteJ.W. [facility] HospitalComment on above:Result Comment: Electronically Signed By: NEVAEH WISE, Ramos\.br\Date and Time Signed: 02/25/23 11:[id number] Hospital Discharge instructions Patient Education 02/25/2023 11:06:33 [...] Carrots. Green beans. Tomatoes. Peppers. Onions. Cucumbers. [place] sprouts. Grains Whole grains, such as whole-wheat [...] meet with a certified diabetes care and interrelated special education teacher? Do I need to meet with a dietitian? What number can I call if I have questions? When are the best times to check my blood glucose? Where to find more information: [place] Diabetes Association: diabetes.org Academy of Nutrition and Dietetics: eatright.org National [place] of Diabetes and Digestive and Kidney Diseases: [...] provider. Document Revised: 04/29/2021 Document Reviewed: 04/29/2021 [employer] Patient Education 2022 [employer]. 02/25/2023 11:06:31 Diabetes Mellitus and Foot Care Diabetes Mellitus and Foot Care Foot care is an important part of your health, especially when you have diabetes. Diabetes may cause you to have problems because of poor blood flow (circulation) to your feet and legs, which can cause your skin to: Become thinner and kier drier. Break more easily. Heal more slowly. [...] provider immediately. Where to find more information [place] Diabetes Association: www.diabetes.org Association of Diabetes Care [...] provider. Document Revised: 04/16/2021 Document Reviewed: 04/16/2021 [employer] Patient Education 2022 [employer]. 02/25/2023 11:06:09 Wound Infection, Rpvu-sd-Enwy Wound Infection A wound infection happens when [...] instructions at home: Medicines Take or apply rtfl-rdh-uhiwvvw and prescription medicines only as told by [...] cannot use soap and water, use hand woodenware assembler. ?Change your bandage as told by your [...] provider. Document Revised: 07/22/2022 Document Reviewed: 07/22/2022 [employer] Patient Education 2022 [employer] Follow Up Care 02/23/2023 10:43:07 With:Chong Coe Address: [address] [place] [address]- Business (1) When:7 to 10 days With:Erwin Hurd Address: [address] [place] [address]- Business (1) When:5 to 7 days With:Andrea Lomax MD, NEU Address: [address] [place] [address]- When:2 to 4 weeks With:GIAN HORTA Address: [address] [place] [address] Business (1) When:02/28/2023 Comments:The office is closed on Fridays. Please contact your PCP on Tuesday, February 28 for an appointment. Thank you! [facility]05-09-2023 Evaluation + Plan noteExtracted from: Title:ED Note [...] 02/15/23 12:39:00 EDT phenylephrine nasal, 2 spray(s), [place], Nasal, Once, Stop date 02/15/23 12:42:00 EDT, [...] Complete Bilat 04/08/23 * CV Cardiovascular 02/15/23 [facility]05-09-2023 Evaluation + Plan note Future Scheduled Tests Radiology* CV Cardiovascular 02/15/23 [facility]05-09-2023 Hospital Discharge instructions Follow Up Care 02/15/2023 11:01:41 With:Vinita Delgadillo Address:Unknown When:02/18/2023 16:48:28 With:Erwin Hurd Address: [address] [place] [address] Business (1) When:02/18/2023 16:48:12 With:GIAN HORTA Address: [address] [place], [place] [address]Otilia [facility] [place] [address] Business (1) When:Within 3 Day(s) [facility]04-22-2023 NotePROCEDURE: XR HIP RT 2 3V W PELVIS COMPARISON: None. HISTORY: Pain in right hip joint FINDINGS: BONES:No acute fracture or dislocation. Moderate degenerative spondylosis of the spine. Moderate bilateral hip osteoarthropathy with joint space narrowing SOFT TISSUES:Negative. No visible soft tissue swelling. EFFUSION:None visible. OTHER: Vascular calcifications with vascular stents IMPRESSION: Moderate degenerative changes Electronically authenticated by: MARIO CULLEN Date: 2023-01-29 14:17[facility] Future Appointments Appointment Date:12/02/2022 08:45:00 AM Scheduled Provider:Brennon Alvarado MD Location:.[facility] Appointment Type: New Patient 30 (FT) [facility] Future Appointments Appointment Date:12/23/2022 02:30:00 PM Scheduled Provider:Erwin Hurd MD Location:FT.Vascular Clinic Appointment Type:Vascular Follow Up (FT) [facility] Future Scheduled Tests Radiology* US Aorta, IVC, Iliac Duplex 04/08/23 * US PVR Lower EXT Complete Bilat 04/08/23 [facility] Future Appointments Appointment Date:02/17/2023 10:30:00 AM Scheduled Provider:Erwin Hurd MD Location:FT.Vascular Clinic Appointment Type:Vascular Follow Up (FT) Future Scheduled Tests Radiology* US Aorta, IVC, Iliac Duplex 04/08/23 * US PVR Lower EXT Complete Bilat 04/08/23 * CV Cardiovascular 02/15/23 [facility] Future Appointments Appointment Date:03/17/2023 01:00:00 PM Scheduled Provider:Erwin Hurd MD Location:FT.Vascular Clinic Appointment Type:Vascular Follow Up (FT) Future Scheduled Tests Radiology* US Aorta, IVC, Iliac Duplex 04/08/23 * US PVR Lower EXT Complete Bilat 04/08/23 * CV Cardiovascular 02/15/23 [facility] Future Appointments Appointment Date:04/13/2023 09:00:00 AM Scheduled Provider: Location:.[facility] Appointment Type:US Duplex Procedures (FT) Diagnostic Tests Pending * Path. Review 04/04/23 Future Scheduled Tests Radiology* US Aorta, IVC, Iliac Duplex 04/13/23 * US PVR Lower EXT Complete Bilat 04/13/23 * CV Cardiovascular 02/15/23 [facility] Future Appointments Appointment Date:04/11/2023 12:30:00 PM Scheduled Provider: [facility] Appointment Type:Surgery FT Future Scheduled Tests Radiology* CV Cardiovascular 02/15/23 [facility] noteNo InformationNortDepartment of [facility] Other Evaluation note* Diagnosis Anemia, unspecified type- Primary [facility] information available [facility] Work Phone: History general Narrative - Reported* Type Description Date Medical History type II diabetes Medical History PAD Surgical History cholcystecomy Surgical History appendectomy Surgical History open heart surgery Surgical History femoral bypass Surgical History right leg amputation [facility] Other Hospital course Narrative No data available for this section [facility] Discharge instructions No data available for this section [facility] HospitalInstructionsNot on filedocumented in this encounter [facility] note No data available for this section [facility] note Author Albino Lizama [facility] April 23, 2024 2:49pm Note Date/Time April 23, 2024 2:03 pm [facility] [place] [address] Cancer Center Note Signed Patient: Tu Joy MR#: [id number] : 1945 Acct:[id number] Age/Sex: 78 / M Type: REG AMB Date of Service: 04/23/24 Copies to: Gian Horta Jr, DO~ Assessment & Plan A/P Patient Instructions: I would check his iron, ferritin, iron saturation, B12, folate, methylmalonic acid, SPEP, SFLC, epo, immunofixation, send peripheral smear for pathologist review. I will see him in 3 months with the above labs repeated. get notes and BM results from Dr. Dial office. CHEMO PLAN No Active Chemotherapy History of Present Illness HPI ASSESSMENT/PLAN Thrombocytopenia is mild and at least somewhat chronic. Initial consultation in April 2024 shows not really a significant change in thrombocytopenia and mild neutropenia from the first value we had to review which was December 2023. His anemia is also variable and I do not see iron studies in the labs I had available to me today. I would check his iron, ferritin, iron saturation, B12, folate, methylmalonic acid, send peripheral smear for pathologist review. I will see him in 3 months with the above labs repeated. If his thrombocytopenia and neutropenia is continues to trend downward we may consider repeat bone marrow aspirate and biopsy. PHYSICAL EXAMINATION ECOG PS: 2 Bilateral AKA. In a wheelchair today. General : patient is alert and oriented to person place and time, no acute distress. Neck: no JVD or thyromegaly. Lymph: no cervical, supraclavicular, axillary adenopathy. Heart: regular rate and rhythm no murmurs rubs or gallops. Abdomen: soft, nontender,, nondistended, no hepatosplenomegaly. Lungs: clear to auscultation bilaterally. No wheezes, rales, rhonchi. HISTORY OF PRESENT ILLNESS 78-year-old male past medical history includes paroxysmal atrial fibrillation, iron deficiency anemia, type 2 diabetes, COPD, coronary artery disease status post CABG in 1998, chronic heart failure ejection fraction of 35 to 40% in 2020 with recovery in October 2022, right sacral ulcer, bilateral [id number] amputations with history of osteomyelitis up to his femurs.. His primary care provider is Dr. Gian Horta. He is referred for thrombocytopenia which has delayed surgery recently. In the past he has required argon plasma coagulation for upper GI bleed by Dr. Velasquez in [place]. He has also had EGD by Dr. Ranjith Blakely. Outpatient medications include vitamin C, biotin, digoxin, ezetimibe, Pepcid, iron tablet 325 mg p.o. daily, metformin, Singulair, tramadol, Verquvo, Zofran, Protonix, trazodone. He follows with Dr. Erwin Hurd for vascular surgery. He was placed on Eliquis sometime around October 2022, he has been off of his Eliquis intermittently for epistaxis and anemia. He has also seen Dr. Cheng from cardiology. Review of labs from Dr. Horta's office from April 19, 2024 showed white blood cell count of 2.7 with a hemoglobin of 10.1, MCV of 92.8, platelet count of 87,000. His white blood cell differential is normal with 69% neutrophils and 21% lymphocytes. Another CBC was reviewed from April 13, 2024 with essentially the same numbers. CBC reviewed from April 03, 2024, white blood cell count 3.2, hemoglobin 9.8, platelet count 118,000. CBC reviewed from March 20, 2024 white blood cell count 3.3, hemoglobin 8.7, platelet count 95,000. CBC reviewed from March 06, 2024 showed white blood cell count 5.3, hemoglobin 9.1, platelet count 190,000. CBC from January 19, 2024 reviewed white blood cell count 3.9, hemoglobin 8.4, platelet count 141,000. CBC reviewed from December 27, 2023 white blood cell count 4.0, hemoglobin 7.0, platelet count 168,000. There is concern for his thrombocytopenia, it has delayed his surgery of a stumpcleanout with Dr. Hurd. He is not on an antibiotic. He is on a steroid by Dr. Horta since last tuesday dexamethasone 4mg the patient and believes are related to his low platelets. He had a BM biopsy maybe in 2021 for similar count issues. this was from [facility]. Dr. Dial. he feels well overall. Intake Vitals/Pain Assessment 04/23/24 14:06 Height 3 ft 5 in Weight 49.895 kg BMI 46.0 Body Fat % 67.55 BP 136/62 Blood Pressure Location Lt brachial Position Sitting Temp 97.8 F Temp Source Temporal Pulse 72 Pulse Source NIBP Respiration 20 Pulse Oximetry (%) 97 Oxygen Delivery Method room air Are you having pain? No Intake Visit Reasons: NEW Thrombocytopenia Accompanied by: Spouse Allergies codeine Allergy (Unknown, Verified 07/19/23 13:12) daptomycin Allergy (Unknown, Verified 07/19/23 13:12) iodine Allergy (Unknown, Verified 07/19/23 13:12) promethazine [Phenergan] Allergy (Unknown, Verified 07/19/23 13:12) shellfish derived Allergy (Unknown, Verified 07/19/23 13:12) - Last Reconciled 04/23/24 by Sonia Helm acarbose 100 mg PO DAILY acetaminophen (Tylenol Extra Strength) 500 mg PO Q6HR PRN biotin 10 mg PO DAILY cholecalciferol (vitamin D3) 10 mcg PO DAILY cyanocobalamin (vitamin B-12) 1,000 mcg subcut QMONTH dexamethasone 4 mg PO DAILY digoxin 125 mcg PO DAILY ezetimibe (Zetia) 5 mg PO DAILY famotidine 40 mg PO DAILY ferrous sulfate 325 mg PO DAILY montelukast 10 mg PO DAILY rosuvastatin (Crestor) 40 mg PO DAILY vericiguat 10 mg PO DAILY Gastrointestinal Is the patient taking opioids for pain control?: No Bowel Protocol for Opioids Given: No Bowel Pattern: Regular Bowel Movement Aid(s): None Falls Fall Precaution Measures Taken: Patient in chair Nurse's Note: Patient is referred by Dr Gian Horta for thrombocytopenia. Outside records for review. [facility] Medical History Medical History (Updated 04/23/24 @ 14:22 by Sonia Helm) PVD (peripheral vascular disease) History of blood transfusion Diabetes COVID Blood clot in vein Atrial fibrillation October 2022 Anemia Surgical History Surgical History (Updated 04/23/24 @ 14:22 by Sonia Helm) History of vasectomy x2 had reversal in between H/O knee surgery x4 right, x1 left Hx of cholecystectomy History of open heart surgery Hx of appendectomy S/P AKA (above knee amputation) bilateral Family History Family History (Updated 07/19/23 @ 13:12 by Provider Conversion) Brother Legacy FamHx Relation: Brother(s) Cancer Legacy FamHx Relation: Brother(s); Legacy FamHx Problem: Diagnosed with Cancer Social History Social History (Updated 04/23/24 @ 14:23 by Sonia Helm) Smoking status: Former smoker What tobacco products do you use: cigarettes Smoking quit date/years: <= 15 years ago Within the past year, how often did you have a drink containing alcohol: never AUDIT-C Alcohol total score: 0 AUDIT-C Alcohol score interpretation: A score less than 4 is consistent with normal alcohol consumption. In the past 12 months, have you used illegal drugs or prescription drugs for non-medical reasons?: Yes Substance Use Type: Marijuana Substance Use Comment: patient quit smoking in 2019 [facility] - [facility] RESULTS No Data to Display Dictated By: Albino Lizama II, DO DD/ 1401 Signed By: <Electronically signed by Albino Lizama II, DO> 04/23/24 1449 [facility] Work Phone: Summary Purpose Family History Relationship Condition Age at Onset Recorded Date/T norma brother Unknown Malignant neoplasm Unknown Advance Directives Advance Directive Response Recorded Date/ Time Advance Directives No April 20 11:03am Chief Complaint and Reason for Visit Chief Complaint Thrombocytopenia NEW Thrombocytopenia Additional Source Comments (unrecognized sect ion and content) No Status Records FoundNo Status Records FoundNo Status Records FoundNo Status Records FoundNo Status Records FoundNo Status Records FoundNo Status Records FoundNo Status Records FoundNo Status Records Found INFORMATION SOURCE (unrecogn ized section and content) DATE CREATED AUTHOR 04/29/2022 [facility] DATE CREATED AUTHOR AUTHOR'S ORGANIZ ATION 01/30/2023 [facility] DATE CREATED AUTHOR AUTHOR'S ORGANIZ ATION 02/10/2023 [facility] DATE CREATED AUTHOR AUTHOR'S ORGANIZ ATION 09/07/2023 [facility] DATE CREATED AUTHOR AUTHOR'S ORGANIZ ATION 02/06/2024 [facility] DATE CREATED AUTHOR AUTHOR'S ORGANIZ ATION 02/25/2024 [facility] DATE CREATED AUTHOR AUTHOR'S ORGANIZ ATION 03/15/2024 [facility] DATE CREATED AUTHOR AUTHOR'S ORGANIZ ATION 04/07/2024 [facility] DATE CREATED AUTHOR AUTHOR'S ORGANIZ ATION 04/10/2024 [facility] Patient Care team informatio n (unrecognized section and content) 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 Relationship Specialty Start Date End Date Gian Horta Jr., [address] [place] [address] PCP - General Internal Medicine 07/21/23 Team Status: Inactive Member Role Status Dates Jacob Bernardo MD Attending Provider Active Star t: January 19, 2024 End: January 19, 2024 Team Status: Active Member Role Status Dates Gian Horta JR DO Primary Care Provider Active Team Status: Active Member Role Status Dates Gian Horta JR DO Primary Care Pr ovider, Referring Provider Active Start: April 23, 2024 Albino Lizama II, DO Attending Provider Active Start: April 23, 2024 Team Status: Inactive Member Role Status Dates Albino Lizama II, DO Attending Provider Active Start: April 23, 2024 End: April 23, 2024 Gian Horta JR DO Primary Care Pr ovider, Referring Provider Active Start: April 23, 2024 End: April 23, 2024 REASON FOR VISIT (unrecogniz ed section and content) REF NIRAJ R AKA PROSTH ETIC EVAL.script niraj Goals (unrecognized section and [...] BE BASED ON THE PRIMARY CLINICAL RECORDS. [employer] [facility]. provides no warranty or guarantee of the accuracy or completeness of information in this document.
[2024-04-26] MEDS: LACTATED RINGER'S SOLUTION 1,000 ML 50 ML IV (07:09)
[2024-04-26] MEDS: CEFAZOLIN SODIUM/DEXTROSE,ISO 1 GM/50 ML IV.SOLN IV (07:36)
[2024-04-26] MEDS: HYDROMORPHONE HCL 0.5 MG/0.5 ML SYRINGE IV (08:59)
[2024-04-26] MEDS: OXYCODONE HCL 5 MG TABLET PO (09:23)
--- NOTE | 2024-04-26 10:43 | P.ON_ITS ---
Surgery Operative Note Operative Note Procedure Date: 04/26/24 Time Out Performed: yes Pre-op Diagnosis: Right AKA osteomyelitis Post-op Diagnosis: same as pre-op Procedures performed: Right above knee revision with excision of the infected tissue skin subcutaneous tissue and femur bone about 5 cm femur bone was removed. With bone biopsy bone culture and abscess fluid culture Anesthesia: General-LMA Primary Surgeon: Erwin Hurd Complications: None Estimated blood loss (mL): 20 Specimens: Bone biopsy from the right femur bone culture and tissue fluid culture and Gram stain Drains: None Incision: Right AKA incision closed primarily with vertical mattress using 2-0 Prolen Indications for Procedures: This is a General: Had a remote right AKA however he is osteomyelitis was draining sinus was nonhealing Detailed description of Procedure: The patient was taken back to the operating room placed in the supine position appropriate cardiopulmonary monitors were set general seizure was induced the right AKA stump was prepped and draped in usual sterile surgical fashion after timeout a safety pause elliptical incision was made over the sinusThe sinus tract and these infected tissue all the way down to the bone dissection around the bone was done for about 5 cm so was used to cut the bone the bone was then sent to pathology and to microbiology labs. There was fluid collection by the area we swabbed it and send it for culture and Gram stain. After return hemostasis was achieved the area was thoroughly irrigated with hydrogen peroxide and Betadine and the soft tissue approximated with interrupted 2-0 Vicryl sutures the skin was closed using 2-0 Monocryl vertical mattress sutures. P atient tolerated the procedure very well.
== END 2024-04-26 10:05 | disposition home or self-care (01) ==
PROVIDERS: PCP Internal Medicine; Visit Provider Student in an Organized Health Care Education/Training Program
PROC: (CPT 27596; principal; 2024-04-26 07:30)
DX: E11.69 Type 2 diabetes mellitus with other specified complication (principal); M86.451 Chronic osteomyelitis with draining sinus, right femur; Z89.612 Acquired absence of left leg above knee; Z95.1 Presence of aortocoronary bypass graft; Z87.891 Personal history of nicotine dependence; I25.10 Atherosclerotic heart disease of native coronary artery without angina pectoris; J44.9 Chronic obstructive pulmonary disease, unspecified; E78.5 Hyperlipidemia, unspecified; I10 Essential (primary) hypertension; I48.91 Unspecified atrial fibrillation; M79.7 Fibromyalgia; E11.9 Type 2 diabetes mellitus without complications; E66.01 Morbid (severe) obesity due to excess calories; Z68.42 Body mass index [BMI] 45.0-49.9, adult
CPT/HCPCS: 27596; 87070; 87075; 87102; 87116; 87150; 87186; 87205; 87206; 88304; 99999; J0690; J1170; J2250; J2405; J2704; J3010

== ENCOUNTER 2024-05-17 07:59 | Outpatient (RCR) | payer MEDICARE, SELFPAY ==
[2024-05-10 12:53] VITALS: PULSE 90; TEMP 36.5; O2SAT 98
[2024-05-10] MEDS: DALBAVANCIN HCL 1,500 MG in DEXTROSE 5 % IN WATER 250 ML 650 MG IV (13:23)
[2024-05-10] MEDS: DEXTROSE 5 % IN WATER 250 ML 50 ML IV (13:25)
[2024-05-17 12:52] VITALS: BP 136/67; PULSE 68; TEMP 37.2; O2SAT 98
[2024-05-17] MEDS: DEXTROSE 5 % IN WATER 250 ML 40 ML IV (13:20)
[2024-05-17] MEDS: DALBAVANCIN HCL 1,500 MG in DEXTROSE 5 % IN WATER 250 ML 650 MG IV (13:20)
== END 2024-06-09 23:59 | disposition home or self-care (01) ==
LOC: INF 07:59
PROVIDERS: PCP Internal Medicine
DX: M86.451 Chronic osteomyelitis with draining sinus, right femur (principal)
CPT/HCPCS: 96365; J0875

== ENCOUNTER 2024-05-23 10:37 | Outpatient (REF) | payer MEDICARE, SELFPAY ==
[2024-05-23 11:10] LABS: Hematocrit 36.9 % (42.0-54.0); Hemoglobin 11.9 g/dL (14.0-18.0); Mean Corpuscular HGB Conc 32.2 g/dL (29.9-35.2); Mean Corpuscular Hemoglobin 29.2 pg (25.9-34.0); Mean Corpuscular Volume 90.4 fL (80.0-94.0); Mean Platelet Volume 12.2 fL (9.5-13.5); Platelet Count 105 10^3/uL (150-450); Red Blood Count 4.08 10^6/uL (4.70-6.10); Red Cell Distribution Width 15.7 % (11.0-15.0)
[2024-05-23 12:29] LABS: Alanine Aminotransferase 28 U/L (16-63); Albumin Globulin Ratio 0.8; Albumin Level 3.3 g/dL (3.4-5.0); Alkaline Phosphatase 100 U/L (46-116); Aspartate Amino Transferase 21 U/L (15-37); Bilirubin Direct 0.2 mg/dL (0.0-0.2); Bilirubin Total 0.5 mg/dL (0.2-1.0); Globulin 4.4 g/dL; Total Protein 7.7 g/dL (6.4-8.2)
[2024-05-23 14:18] LABS: Eosinophils Absolute Manual 0.06 10^3/uL (0.00-0.70); Monocytes Absolute Manual 0.36 10^3/uL (0.30-0.80); Segmented Neut Absolute Manual 2.28 10^3/uL (1.4-6.5)
== END 2024-05-23 10:38 | disposition home or self-care (01) ==
LOC: LAB 10:37
PROVIDERS: PCP Internal Medicine; Visit Provider Internal Medicine
DX: K92.2 Gastrointestinal hemorrhage, unspecified (principal); R79.89 Other specified abnormal findings of blood chemistry
CPT/HCPCS: 36415; 80076; 85007; 85027